=== PATIENT | female | born 1990 | race Caucasian/White ===

== ENCOUNTER 2017-01-19 19:39 | Emergency (ER) | payer OTHER, SELFPAY | END 2017-01-19 20:21 | disposition home or self-care (01) | PROVIDERS: Emergency Provider Nurse Practitioner; Visit Provider Nurse Practitioner | DX: J32.9 Chronic sinusitis, unspecified (principal) | CPT/HCPCS: 99201 ==

== ENCOUNTER → 2017-06-21 15:36 | Outpatient (CLI) | payer OTHER, SELFPAY ==
--- NOTE | 2017-06-21 15:38 | US_ITS ---
US transvaginal HISTORY: ITS.REASON: pelvic pain ORDERING PHYSICIAN: Casper Duran MD PATIENT AGE: 27 years Comparison: None FINDINGS: The uterus is 9.7 x 4.2 x 5.8 cm. Combined endometrial thickness is 1 cm. There is a small amount of fluid in the cul-de-sac. Right ovary is 2 x 1.2 cm containing small follicles. Blood flow is present. Left ovary is difficult to visualize measuring approximately 1.8 x 1.2 cm also contains small follicles with scant flow. IMPRESSION: 1. Endometrial thickness upper limits of normal. 2. Small amount fluid in the cul-de-sac
== END ==
PROVIDERS: Family Provider Nurse Practitioner; PCP Nurse Practitioner; Visit Provider Obstetrics & Gynecology
DX: R10.2 Pelvic and perineal pain (principal)
CPT/HCPCS: 76830

== ENCOUNTER → 2018-05-30 13:31 | Outpatient (CLI) | payer OTHER, SELFPAY ==
--- NOTE | 2018-05-30 13:34 | CT_ITS ---
CT sinus wo con CLINICAL INDICATION: Deviated septum, sinusitis ITS.REASON: sinusitis ORDERING PHYSICIAN: Robbin Champagne MD PATIENT AGE: 28 years COMPARISON: None TECHNIQUE:Axial images obtained with sagittal and coronal reformats. All CT scans at the facility use one or more dose reduction, viz: automated exposure control, ma/kV adjustment per patient size (including targeted exams where dose is matched to indication, i.e. head), or iterative reconstruction technique. FINDINGS: No sinus mucosal thickening or air-fluid levels are evident. The ostiomeatal complexes are patent. There is moderate rightward nasal septal deviation with a prominent septal spur which is projecting toward the right causing severe narrowing of the right nasal passage There are scattered small nodes in the neck. There is some increased soft tissue density in the right nasopharyngeal region which may be somewhat accentuated from the patient had tilt. Correlation with direct visualization suggested. The orbits have an unremarkable appearance. Unremarkable TMJs. No mastoid effusion. IMPRESSION:. Moderate rightward nasal septal deviation with prominent septal spur projecting toward the right causing severe narrowing of the right nasal canal Scattered small nodes are present in the neck. There is mild increased soft tissue density in the right nasopharyngeal region which may be better evaluated with direct visualization
== END ==
PROVIDERS: PCP Nurse Practitioner; Visit Provider Otolaryngology
DX: J03.01 Acute recurrent streptococcal tonsillitis (principal); J34.2 Deviated nasal septum
CPT/HCPCS: 70486

== ENCOUNTER → 2018-05-31 11:06 | Outpatient (CLI) | payer OTHER, SELFPAY ==
[2018-05-31 11:42] LABS: Activated Partial Thrombo Time 28.7 seconds (23.6-34.0); INR 1.05 (0.9-1.1); Prothrombin Time 10.8 seconds (9.4-11.8)
[2018-05-31 12:05] LABS: Basophils % 0.3 % (0.1-2.0); Eosinophils # 0.1 K/mm3 (0.0-0.4); Hematocrit 39.2 % (37.0-47.0); Hemoglobin 12.7 g/dL (12.2-16.2); Lymphocytes # 1.8 K/mm3 (0.7-4.5); Lymphocytes % 26.9 % (10-50); Mean Corpuscular HGB Conc 32.5 g/dL (31.8-35.4); Mean Corpuscular Hemoglobin 28.8 pg (27.0-31.2); Mean Corpuscular Volume 88.4 fl (81-99); Mean Platelet Volume 10.5 fl (7.4-10.4); Monocytes # 0.4 K/mm3 (0.1-1.0); Monocytes % 5.2 % (1.7-9.3); Neutrophils # 4.4 K/mm3 (1.8-7.8); Neutrophils % 65.6 % (37.0-80.0); Platelet Count 179 K/mm3 (142-424); Red Blood Count 4.43 M/mm3 (4.20-5.40); White Blood Count 6.6 K/mm3 (4.8-10.8)
[2018-05-31 14:40] LABS: Anion Gap 16.4 mEq/L (5-15); Blood Urea Nitrogen 14 mg/dL (7-18); Calcium 9.4 mg/dL (8.5-10.1); Carbon Dioxide 26 mmol/L (21.0-32.0); Chloride 105 mmol/L (98-107); Creatinine,Serum 0.61 mg/dL (0.55-1.02); Estimated Glomerular Filt Rate 118 ml/min (>60); GFR (African American) 142 ML/MIN (>60); Glucose 81 mg/dL (74-106); Potassium 4.4 mmoL/L (3.5-5.1); Sodium 143 mmol/L (136-145)
== END ==
PROVIDERS: Visit Provider Otolaryngology
DX: J02.8 Acute pharyngitis due to other specified organisms (principal); J03.90 Acute tonsillitis, unspecified; R59.0 Localized enlarged lymph nodes
CPT/HCPCS: 36415; 80048; 85025; 85610; 85730

== ENCOUNTER 2018-07-02 09:14 | Emergency (ER) | payer OTHER, SELFPAY ==
[2018-07-02 09:41] VITALS: BP 129/71; PULSE 107; RESP 20; TEMP 36.9; O2SAT 100; BMI 24.7
--- NOTE | 2018-07-02 09:43 | US_ITS ---
US OB transvaginal: INDICATION: ITS.REASON: 7 weeks -bleeding ORDERING PHYSICIAN: Joe Cary MD PATIENT AGE: 28 years TECHNIQUE: ultrasound transvaginal scanning. COMPARISON: No previous relevant studies. FINDINGS: There are slightly thickened endometrium. There Is a curious hypoechoic cystic-appearing lesion in the lower uterine segment within the myometrium containing what appears be a pole with crown-rump length measuring 0.49 cm which would correspond to gestational age of 6 weeks and 2 days. A couple of images show what appears be a tiny yolk sac. The location of this possible sac is near the scar. The heart rate of 112 bpm was obtained. The cervix is closed. The left ovary appears normal, there is a small cyst in the right ovary. IMPRESSION: Possible very early gestational sac possibly within or adjacent to the scar in the myometrium with a very faint and questionable cardiac flicker identified. The cervix is closed. Other considerations for cystic appearing structure this location would be somewhat high nabothian cyst or a focal area of endometriosis. Suggest close follow-up with serial beta hCG and follow-up ultrasound study in 4-6 days to better evaluate for viability.
--- NOTE | 2018-07-02 09:46 | PC.NURSE ---
called rad for u/s
--- NOTE | 2018-07-02 09:55 | HMH.EDUROGF ---
ED Disposition Clinical Impression: Bleeding in early , Hypokalemia Disposition: Home, Self-Care Condition on Discharge: Good Instructions: DI for Vaginal Bleeding During , DI for Hypokalemia Additional Instructions: Call [facility] monday for follow up Prescriptions: Potassium Chloride [K-Tab ER 20 mEq] 20 meq PO BID 10 Days #20 tab Referrals: Jo Lamb MD [Primary Care Provider] - Time of Disposition: 11:21 - Critical Care Critical Care Time: No Attestation: On 07/02/18, the high probability of a clinically significant, sudden or life threatening deterioration of the following system(s) required my full and direct attention, intervention and personal management. The time I documented below is in addition to time spent performing reported procedures but includes the following listed in this critical care notation. Medical Decision Making - Medical Records Medical records reviewed: Yes: I reviewed the patient's medical records. - Maxime Inquiry Pt receiving controlled substance: No Maxime was queried for this patient: No Vital Signs: 07/02/18 09:41 07/02/18 09:58 07/02/18 11:03 Temperature 98.5 F Temperature Source Oral Pulse Rate [Left Radial] 107 H 79 62 Respiratory Rate 20 Blood Pressure [Right Arm] 129/71 130/83 118/76 Blood Pressure Mean [Right Arm] 90 98 90 Blood Pressure Source [Right Arm] Automatic Cuff Automatic Cuff Automatic Cuff Blood Pressure Position [Right Arm] Sitting Sitting Sitting 02 Sat by Pulse Oximetry 100 99 95 Oxygen Delivery Method Room Air - Lab Data Lab results reviewed: Yes: I reviewed the patient's lab results. Lab Results 07/02/18 09:19: Urine Color Yellow, Urine Appearance Cloudy, Urine pH >= 9.0 H, Ur Specific [place] 1.010, Urine Protein 2+, Urine Glucose (UA) Negative, Urine Ketones Negative, Urine Blood 3+, Urine Nitrate Negative, Urine Bilirubin Negative, Urine Urobilinogen 1.0, Ur Leukocyte Esterase Trace, Urine RBC 20-50, Urine WBC 3-5, Ur Squamous Epith Cells 10-20, Urine Bacteria 2+ 07/02/18 09:48: HCG, Quant [id number] H 07/02/18 09:48: Serum HCG, Qual Positive 07/02/18 09:48: Sodium 141, Potassium 2.7 L*, Chloride 103, Carbon Dioxide 30, Anion Gap 10.7, BUN 12, Creatinine 0.74, Estimated Creat Clear 114, Estimated GFR 94, Est GFR ( Amer) 114, Glucose 92, Calcium 8.9, Total Bilirubin 0.4, AST 12 L, ALT 15, Alkaline Phosphatase 68, Total Protein 7.5, Albumin 3.7, Globulin 3.8 H, Albumin/Globulin Ratio 1.0 L Result diagrams: 07/02/18 09:48 Orders (Tests/Meds): ORDERS Category Date Time Status US transvaginal Stat Exams 07/02/18 09:43 Taken Urine Culture Stat Micro 07/02/18 09:19 Received Female Urogenital HPI - General Chief complaint: Vaginal Bleeding Stated complaint: 7 weeks and bleeding Time Seen by Provider: 07/02/18 09:57 Mode of Arrival: Ambulatory Source of Information: Patient Limitations: No Limitations Description of Symptoms (Recalled from ER Triage Doc. by RN): Pt states this morning she had some dark vaginal bleeding, 7 weeks . Denies any cramping - History of Present Illness HPI Narrative: mild vag bleed, 7 weeks . no lateralizing pain. no previous vaginal discharge. Has been seen by obgyn for this already, no u/s. History of dysplasia, 4 previous live births last requring d/c for retained placenta : yes - Related Data Previous Rx's Medication Instructions Recorded Ondansetron [Zofran 4mg ODT] 4 mg PO Q8HP PRN #20 tab.rapdis 05/28/18 Potassium Chloride [K-Tab ER 20 20 meq PO BID 10 Days #20 tab 07/02/18 mEq] Allergies Allergy/AdvReac Type Severity Reaction Status Date / Time PEANUTS (FOOD) Allergy Unknown . Uncoded 06/29/17 09:45 [facility] History - Hepatitis A Screen Drug use history?: No High risk sexual behaviors?: No History of sexually transmitted infection?: No Currently employed?: No Childcare worker?: No Do y
[2018-07-02 09:58] VITALS: BP 130/83; PULSE 79; O2SAT 99
--- NOTE | 2018-07-02 10:07 | ED_ITS ---
ED Disposition Clinical Impression: Bleeding in early , Hypokalemia Disposition: Home, Self-Care Condition on Discharge: Good Instructions: DI for Vaginal Bleeding During , DI for Hypokalemia Additional Instructions: Call [facility] monday for follow up Prescriptions: Potassium Chloride [K-Tab ER 20 mEq] 20 meq PO BID 10 Days #20 tab Referrals: Jo Lamb MD [Primary Care Provider] - Time of Disposition: 11:21 - Critical Care Critical Care Time: No Attestation: On 07/02/18, the high probability of a clinically significant, sudden or life threatening deterioration of the following system(s) required my full and direct attention, intervention and personal management. The time I documented below is in addition to time spent performing reported procedures but includes the following listed in this critical care notation. Medical Decision Making - Medical Records Medical records reviewed: Yes: I reviewed the patient's medical records. - Maxime Inquiry Pt receiving controlled substance: No Maxime was queried for this patient: No Vital Signs: 07/02/18 09:41 07/02/18 09:58 07/02/18 11:03 Temperature 98.5 F Temperature Source Oral Pulse Rate [Left Radial] 107 H 79 62 Respiratory Rate 20 Blood Pressure [Right Arm] 129/71 130/83 118/76 Blood Pressure Mean [Right Arm] 90 98 90 Blood Pressure Source [Right Arm] Automatic Cuff Automatic Cuff Automatic Cuff Blood Pressure Position [Right Arm] Sitting Sitting Sitting 02 Sat by Pulse Oximetry 100 99 95 Oxygen Delivery Method Room Air - Lab Data Lab results reviewed: Yes: I reviewed the patient's lab results. Lab Results 07/02/18 09:19: Urine Color Yellow, Urine Appearance Cloudy, Urine pH >= 9.0 H, Ur Specific [employer] 1.010, Urine Protein 2+, Urine Glucose (UA) Negative, Urine Ketones Negative, Urine Blood 3+, Urine Nitrate Negative, Urine Bilirubin Negative, Urine Urobilinogen 1.0, Ur Leukocyte Esterase Trace, Urine RBC 20-50, Urine WBC 3-5, Ur Squamous Epith Cells 10-20, Urine Bacteria 2+ 07/02/18 09:48: HCG, Quant [id number] H 07/02/18 09:48: Serum HCG, Qual Positive 07/02/18 09:48: Sodium 141, Potassium 2.7 L*, Chloride 103, Carbon Dioxide 30, Anion Gap 10.7, BUN 12, Creatinine 0.74, Estimated Creat Clear 114, Estimated GFR 94, Est GFR ( Amer) 114, Glucose 92, Calcium 8.9, Total Bilirubin 0.4, AST 12 L, ALT 15, Alkaline Phosphatase 68, Total Protein 7.5, Albumin 3.7, Globulin 3.8 H, Albumin/Globulin Ratio 1.0 L Result diagrams: 07/02/18 09:48 Orders (Tests/Meds): ORDERS Category Date Time Status US transvaginal Stat Exams 07/02/18 09:43 Taken Urine Culture Stat Micro 07/02/18 09:19 Received Female Urogenital HPI - General Chief complaint: Vaginal Bleeding Stated complaint: 7 weeks and bleeding Time Seen by Provider: 07/02/18 09:57 Mode of Arrival: Ambulatory Source of Information: Patient Limitations: No Limitations Description of Symptoms (Recalled from ER Triage Doc. by RN): Pt states this morning she had some dark vaginal bleeding, 7 weeks . Denies any cramping - History of Present Illness HPI Narrative: mild vag bleed, 7 weeks . no lateralizing pain. no previous vaginal discharge. Has been seen by [facility] for this already,
[2018-07-02 10:09] LABS: Microscopic, Urine URINE MICROSCOPIC (MICROSCOPIC)
[2018-07-02 10:10] LABS: Appearance,Urine CLOUDY (Clear); Bilirubin,Urine Negative (Negative); Blood, Urine 3+ (Negative); Color,Urine YELLOW (Yellow); Glucose,Urine (UA) Negative (Negative); Ketones,Urine Negative (Negative); Leukocyte Esterase,Urine TRACE (Negative); Nitrate,Urine Negative (Negative); Protein,Urine 2+ (Negative)
[2018-07-02 10:19] LABS: PH,Urine >= 9.0 (5.0-8.5)
[2018-07-02 10:20] LABS: Bacteria,Urine 2+ /lpf; RBC,Urine 20-50 #/hpf (0-3)
[2018-07-02 10:23] LABS: HCG Qualitative, Serum Positive (Negative)
[2018-07-02 10:27] LABS: Alanine Aminotransferase 15 U/L (12-78); Albumin Level 3.7 gm/dL (3.4-5.0); Alkaline Phosphatase 68 U/L (46-116); Anion Gap 10.7 mEq/L (5-15); Aspartate Amino Transferase 12 U/L (15-37); Bilirubin,Total 0.4 mg/dL (0.2-1.0); Blood Urea Nitrogen 12 mg/dL (7-18); Calcium 8.9 mg/dL (8.5-10.1); Carbon Dioxide 30 mmol/L (21.0-32.0); Chloride 103 mmol/L (98-107); Creatinine Clearance Estimated 114 mL/min (50-200); Creatinine,Serum 0.74 mg/dL (0.55-1.02); Estimated Glomerular Filt Rate 94 ml/min (>60); GFR (African American) 114 ML/MIN (>60); Globulin 3.8 gm/dl (1.3-3.2); Glucose 92 mg/dL (74-106); Sodium 141 mmol/L (136-145); Total Protein,Serum 7.5 gm/dL (6.4-8.2)
[2018-07-02 10:28] LABS: Potassium 2.7 mmoL/L (3.5-5.1)
--- NOTE | 2018-07-02 10:28 | PC.NURSE ---
Critical potassium report to
[2018-07-02 10:58] LABS: HCG,Quantitative 2963 mIU/mL
--- NOTE | 2018-07-02 10:59 | PC.NURSE ---
pt returned to room
[2018-07-02 11:03] VITALS: BP 118/76; PULSE 62; O2SAT 95
[2018-07-02 11:24] VITALS: BP 107/65; PULSE 83; O2SAT 98
[2018-07-02 11:58] VITALS: BP 121/74; PULSE 81; RESP 18; TEMP 36.7; O2SAT 98
== END 2018-07-02 11:59 | disposition home or self-care (01) ==
PROVIDERS: Emergency Provider Emergency Medicine; PCP Nurse Practitioner
DX: O46.91 Antepartum hemorrhage, unspecified, first trimester (principal); Z3A.01 Less than 8 weeks gestation of pregnancy; E87.6 Hypokalemia; K21.9 Gastro-esophageal reflux disease without esophagitis; R09.81 Nasal congestion
CPT/HCPCS: 76817; 80053; 81001; 84702; 84703; 87086; 99283

== ENCOUNTER 2018-07-08 11:14 | Emergency (ER) | payer OTHER, SELFPAY ==
[2018-07-08 11:28] VITALS: BP 116/82; PULSE 90; RESP 16; TEMP 36.9; O2SAT 99; BMI 24.7
--- NOTE | 2018-07-08 11:38 | US_ITS ---
US OB transvaginal CLINICAL INDICATION: ITS.REASON: vaginal bleeding ORDERING PHYSICIAN: Eric Temple MD PATIENT AGE: 28 years Comparison: None FINDINGS: There is an intrauterine gestation with a crown-rump length of 0.72 cm correlating to a gestational age of 6 weeks and 5 days. Gestational sac does not appear to be within the endometrium itself. The sac is near the cervical region.. Small amount fluid is present around the sac. heart tones are present with FHR of 129 bpm. There is a small amount fluid also within the endometrium. The adnexa are unremarkable. No cul-de-sac fluid. IMPRESSION: There is a single live gestation that is near the cervix. The estimated ultrasound age is 6 weeks 5 days. heart tones are present. The sac itself does not appear to be within the cervix but is along the lower uterine segment anteriorly and could be within a scar as previously described. Close follow-up is suggested.
--- NOTE | 2018-07-08 11:40 | HMH.EDGENADL ---
ED Disposition Clinical Impression: Threatened UTI (urinary tract infection) Qualifiers: Urinary tract infection type: acute cystitis Hematuria presence: with hematuria Qualified Code(s): N30.01 - Acute cystitis with hematuria Disposition: Home, Self-Care Condition on Discharge: Good Instructions: DI for Vaginal Bleeding Prescriptions: Nitrofurantoin Monohyd/M-Cryst [Macrobid 100 mg Capsule] 100 mg PO BID 7 Days #14 cap Referrals: Jo Lamb MD [Primary Care Provider] - - Critical Care Critical Care Time: No Attestation: On , the high probability of a clinically significant, sudden or life threatening deterioration of the following system(s) required my full and direct attention, intervention and personal management. The time I documented below is in addition to time spent performing reported procedures but includes the following listed in this critical care notation. Medical Decision Making - Medical Records Medical records reviewed: Yes: I reviewed the patient's medical records. - Maxime Inquiry Pt receiving controlled substance: No Vital Signs: 07/08/18 11:28 07/08/18 12:25 Temperature 98.5 F Temperature Source Oral Pulse Rate [Left Radial] 90 74 Respiratory Rate 16 Blood Pressure [Right Arm] 116/82 121/67 Blood Pressure Mean [Right Arm] 93 85 Blood Pressure Source [Right Arm] Automatic Cuff Blood Pressure Position [Right Arm] Sitting 02 Sat by Pulse Oximetry 99 99 Oxygen Delivery Method Room Air - Lab Data Lab results reviewed: Yes: I reviewed the patient's lab results. Lab Results 07/08/18 11:34: Urine Color Yellow, Urine Appearance Cloudy, Urine pH >= 9.0 H, Ur Specific [place] 1.010, Urine Protein 2+, Urine Glucose (UA) Negative, Urine Ketones Negative, Urine Blood 1+, Urine Nitrate Negative, Urine Bilirubin Negative, Urine Urobilinogen 0.2, Ur Leukocyte Esterase Negative, Urine RBC 3-5, Urine WBC 3-5, Ur Squamous Epith Cells 5-10, Urine Bacteria 4+ 07/08/18 11:50: HCG, Quant [id number] H 07/08/18 11:50: WBC 6.3, RBC 4.22, Hgb 12.1 L, Hct 35.6 L, MCV 84.3, MCH 28.6, MCHC 34.0, RDW 13.1, Plt Count 201, MPV 9.7, Neut % (Auto) 58.2, Lymph % (Auto) 34.5, [place] % (Auto) 4.9, Eos % (Auto) 2.2, Baso % (Auto) 0.2, Neut # (Auto) 3.7, Lymph # (Auto) 2.2, [place] # (Auto) 0.3, Eos # (Auto) 0.1, Baso # (Auto) 0.0 07/08/18 11:50: Sodium 141, Potassium 3.6, Chloride 105, Carbon Dioxide 24, Anion Gap 15.6 H, BUN 8, Creatinine 0.67, Estimated Creat Clear 126, Estimated GFR 106, Est GFR ( Amer) 128, Glucose 88, Calcium 8.8, Total Bilirubin 0.5, AST 14 L, ALT 19, Alkaline Phosphatase 72, Total Protein 7.4, Albumin 3.7, Globulin 3.7 H, Albumin/Globulin Ratio 1.0 L 07/08/18 11:58: Blood Type O Positive Result diagrams: 07/08/18 11:50 07/08/18 11:50 Orders (Tests/Meds): ED MEDICATIONS Discontinued Medications Generic Name Dose Route Start Last Admin Trade Name Freq PRN Reason Stop Dose Admin Sodium Chloride 1,000 mls @ 999 mls/hr 07/08/18 11:45 07/08/18 11:53 Sod Chlor 0.9% 1000ml Bag IV 07/08/18 12:45 999 mls/hr .Q1H1M RENE Administration ORDERS Category Date Time Status Urine Culture Stat Micro 07/08/18 11:34 Received US OB transvaginal Stat Ultrasound 07/08/18 11:38 Taken - US Data US Images: Pelvis ED US Reviewed: Yes: I have viewed radiologist's interpretation Preliminary Findings: Abnormal Echo (live iup, no large free fluid, per Rad) Medical Decision Narrative: see your OB tomorrow, continue vit, macrobid, oral fluids, return if worse General Adult HPI - General Chief complaint: Vaginal Bleeding Stated complaint: 7 weeks passing blood clots Time Seen by Provider: 07/08/18 11:40 Mode of Arrival: Ambulatory Source of Information: Patient Limitations: No Limitations Description of Symptoms (Recalled from ER Triage Doc. by RN): c/o bleeding with clots that started this morning, she states that the bleeding has almost stopped. 7 we
--- NOTE | 2018-07-08 11:43 | ED_ITS ---
ED Disposition Clinical Impression: Threatened UTI (urinary tract infection) Qualifiers: Urinary tract infection type: acute cystitis Hematuria presence: with hematuria Qualified Code(s): N30.01 - Acute cystitis with hematuria Disposition: Home, Self-Care Condition on Discharge: Good Instructions: DI for Vaginal Bleeding Prescriptions: Nitrofurantoin Monohyd/M-Cryst [Macrobid 100 mg Capsule] 100 mg PO BID 7 Days #14 cap Referrals: Jo Lamb MD [Primary Care Provider] - - Critical Care Critical Care Time: No Attestation: On , the high probability of a clinically significant, sudden or life threatening deterioration of the following system(s) required my full and direct attention, intervention and personal management. The time I documented below is in addition to time spent performing reported procedures but includes the fo llowing listed in this critical care notation. Medical Decision Making - Medical Records Medical records reviewed: Yes: I reviewed the patient's medical records. - Maxime Inquiry Pt receiving controlled substance: No Vital Signs: 07/08/18 11:28 07/08/18 12:25 Temperature 98.5 F Temperature Source Oral Pulse Rate [Left Radial] 90 74 Respiratory Rate 16 Blood Pressure [Right Arm] 116/82 121/67 Blood Pressure Mean [Right Arm] 93 85 Blood Pressure Source [Right Arm] Automatic Cuff Blood Pressure Position [Right Arm] Sitting 02 Sat by Pulse Oximetry 99 99 Oxygen Delivery Method Room Air - Lab Data Lab results reviewed: Yes: I reviewed the patient's lab results. Lab Results 07/08/18 11:34: Urine Color Yellow, Urine Appearance Cloudy, Urine pH >= 9.0 H, Ur Specific [place] 1.010, Urine Protein 2+, Urine Glucose (UA) Negative, Urine Ketones Negative, Urine Blood 1+, Urine Nitrate Negative, Urine Bilirubin Negative, Urine Urobilinogen 0.2, Ur Leukocyte Esterase Negative, Urine RBC 3-5, Urine WBC 3-5, Ur Squamous Epith Cells 5-10, Urine Bacteria 4+ 07/08/18 11:50: HCG, Quant [id number] H 07/08/18 11:50: WBC 6.3, RBC 4.22, Hgb 12.1 L, Hct 35.6 L, MCV 84.3, MCH 28.6, MCHC 34.0, RDW 13.1, Plt Count 201, MPV 9.7, Neut % (Auto) 58.2, Lymph % (Auto) 34.5, [place] % (Auto) 4.9, Eos % (Auto) 2.2, Baso % (Auto) 0.2, Neut # (Auto) 3.7, Lymph # (Auto) 2.2, [place] # (Auto) 0.3, Eos # (Auto) 0.1, Baso # (Auto) 0.0 07/08/18 11:50: Sodium 141, Potassium 3.6, Chloride 105, Carbon Dioxide 24, Anion Gap 15.6 H, BUN 8, Creatinine 0.67, Estimated Creat Clear 126, Estimated GFR 106, Est GFR ( Amer) 128, Glucose 88, Calcium 8.8, Total Bilirubin 0.5, AST 14 L, ALT 19, Alkaline Phosphatase 72, Total Protein 7.4, Albumin 3.7, Globulin 3.7 H, Albumin/Globulin Ratio 1.0 L 07/08/18 11:58: Blood Type O Positive Result diagrams: 07/08/18 11:50 07/08/18 11:50 Orders (Tests/Meds): ED MEDICATIONS Discontinued Medications Generic Name Dose Route Start Last Admin Trade Name Freq PRN Reason Stop Dose Admin Sodium Chloride 1,000 mls @ 999 mls/hr 07/08/18 11:45 07/08/18 11:53 Sod Chlor 0.9% 1000ml Bag IV 07/08/18 12:45 999 mls/hr .Q1H1M RENE Administration ORDERS Category Date Time Status Urine Culture Stat Micro 07/08/18 11:34 Received U
[2018-07-08 11:56] LABS: Microscopic, Urine URINE MICROSCOPIC (MICROSCOPIC)
[2018-07-08 11:59] LABS: Appearance,Urine CLOUDY (Clear); Bilirubin,Urine Negative (Negative); Blood, Urine 1+ (Negative); Color,Urine YELLOW (Yellow); Glucose,Urine (UA) Negative (Negative); Ketones,Urine Negative (Negative); Leukocyte Esterase,Urine Negative (Negative); Nitrate,Urine Negative (Negative); Protein,Urine 2+ (Negative); Urobilinogen,Urine 0.2 EU/dl (0.2)
[2018-07-08 11:59] LABS: Basophils % 0.2 % (0.1-2.0); Eosinophils # 0.1 K/mm3 (0.0-0.4); Eosinophils % 2.2 % (0.1-12.0); Hematocrit 35.6 % (37.0-47.0); Hemoglobin 12.1 g/dL (12.2-16.2); Lymphocytes # 2.2 K/mm3 (0.7-4.5); Lymphocytes % 34.5 % (10-50); Mean Corpuscular Hemoglobin 28.6 pg (27.0-31.2); Mean Corpuscular Volume 84.3 fl (81-99); Mean Platelet Volume 9.7 fl (7.4-10.4); Monocytes # 0.3 K/mm3 (0.1-1.0); Monocytes % 4.9 % (1.7-9.3); Neutrophils # 3.7 K/mm3 (1.8-7.8); Neutrophils % 58.2 % (37.0-80.0); Platelet Count 201 K/mm3 (142-424); Red Blood Count 4.22 M/mm3 (4.20-5.40); Red Cell Distribution Width 13.1 % (11.5-17.5); White Blood Count 6.3 K/mm3 (4.8-10.8)
[2018-07-08 12:01] LABS: PH,Urine >= 9.0 (5.0-8.5)
[2018-07-08 12:09] LABS: Bacteria,Urine 4+ /lpf
[2018-07-08 12:09] LABS: Alanine Aminotransferase 19 U/L (12-78); Albumin Level 3.7 gm/dL (3.4-5.0); Alkaline Phosphatase 72 U/L (46-116); Anion Gap 15.6 mEq/L (5-15); Aspartate Amino Transferase 14 U/L (15-37); Bilirubin,Total 0.5 mg/dL (0.2-1.0); Blood Urea Nitrogen 8 mg/dL (7-18); Calcium 8.8 mg/dL (8.5-10.1); Carbon Dioxide 24 mmol/L (21.0-32.0); Chloride 105 mmol/L (98-107); Creatinine Clearance Estimated 126 mL/min (50-200); Creatinine,Serum 0.67 mg/dL (0.55-1.02); Estimated Glomerular Filt Rate 106 ml/min (>60); GFR (African American) 128 ML/MIN (>60); Globulin 3.7 gm/dl (1.3-3.2); Glucose 88 mg/dL (74-106); Potassium 3.6 mmoL/L (3.5-5.1); Sodium 141 mmol/L (136-145); Total Protein,Serum 7.4 gm/dL (6.4-8.2)
[2018-07-08 12:25] VITALS: BP 121/67; PULSE 74; O2SAT 99
[2018-07-08 12:33] LABS: HCG,Quantitative 5166 mIU/mL
[2018-07-08 14:00] VITALS: BP 105/62; PULSE 87; O2SAT 97
[2018-07-08 14:09] VITALS: BP 126/66; PULSE 65; RESP 18; TEMP 36.6; O2SAT 100
== END 2018-07-08 14:13 | disposition home or self-care (01) ==
PROVIDERS: Emergency Provider Emergency Medicine Emergency Medical Services; PCP Nurse Practitioner
DX: O20.0 Threatened abortion (principal); Z3A.01 Less than 8 weeks gestation of pregnancy; O23.11 Infections of bladder in pregnancy, first trimester; K21.9 Gastro-esophageal reflux disease without esophagitis
CPT/HCPCS: 36415; 76817; 80053; 81001; 84702; 85025; 86900; 86901; 87086; 96365; 99284

== ENCOUNTER → 2018-08-03 14:29 | Outpatient (CLI) | payer OTHER, SELFPAY ==
--- NOTE | 2018-08-03 14:30 | US_ITS ---
US transvaginal HISTORY: ITS.REASON: POST OP FOLLOW ORDERING PHYSICIAN: Casper Duran MD PATIENT AGE: 28 years Comparison: None FINDINGS: Uterus is empty and measures 9.0 x 3.9 x 6.2 cm. Right ovary is 4.3 x 2.1 x 3.5 cm. Left ovary is 2.0 x 1.0 x 1.4 cm. There is a small amount of cul-de-sac fluid. Cervical area appears normal. Near the surgical scar level in the anterior myometrium of the uterus there is a rounded anechoic focus measuring 4.8 mm in greatest diameter. Endometrial stripe is 7.6 mm. Right ovary shows a few anechoic foci largest is 3.4 cm. There is blood flow to the right ovary. Left ovary shows blood flow without lesion. Impression: Small benign-appearing cyst within the uterine myometrium anteriorly at the level of the surgical scar. Right ovarian cysts, largest is 3.4 cm. Small amount of cul-de-sac fluid which could be physiological.
== END ==
PROVIDERS: PCP Nurse Practitioner; Visit Provider Obstetrics & Gynecology
DX: O20.0 Threatened abortion (principal)
CPT/HCPCS: 76830

== ENCOUNTER → 2018-09-03 10:16 | Outpatient (CLI) | payer OTHER, SELFPAY ==
[2018-09-03 10:38] LABS: Urine Pregnancy, HCG Qual. Negative (Negative)
[2018-09-03 11:27] LABS: Basophils % 0.4 % (0.1-2.0); Eosinophils # 0.2 K/mm3 (0.0-0.4); Hematocrit 36.7 % (37.0-47.0); Hemoglobin 11.7 g/dL (12.2-16.2); Lymphocytes % 30.8 % (10-50); Mean Corpuscular Hemoglobin 28.2 pg (27.0-31.2); Mean Corpuscular Volume 88.2 fl (81-99); Mean Platelet Volume 9.7 fl (7.4-10.4); Monocytes # 0.4 K/mm3 (0.1-1.0); Monocytes % 6.5 % (1.7-9.3); Neutrophils # 3.8 K/mm3 (1.8-7.8); Neutrophils % 59.2 % (37.0-80.0); Platelet Count 254 K/mm3 (142-424); Red Blood Count 4.16 M/mm3 (4.20-5.40); Red Cell Distribution Width 13.4 % (11.5-17.5); White Blood Count 6.3 K/mm3 (4.8-10.8)
[2018-09-03 11:47] LABS: Anion Gap 13.2 mEq/L (5-15); Blood Urea Nitrogen 11 mg/dL (7-18); Calcium 8.9 mg/dL (8.5-10.1); Carbon Dioxide 26 mmol/L (21.0-32.0); Chloride 106 mmol/L (98-107); Creatinine,Serum 0.65 mg/dL (0.55-1.02); Estimated Glomerular Filt Rate 109 ml/min (>60); GFR (African American) 132 ML/MIN (>60); Glucose 81 mg/dL (74-106); Potassium 4.2 mmoL/L (3.5-5.1); Sodium 141 mmol/L (136-145)
== END ==
PROVIDERS: Visit Provider Otolaryngology
DX: Z01.818 Encounter for other preprocedural examination (principal); J34.2 Deviated nasal septum; R59.9 Enlarged lymph nodes, unspecified; J34.89 Other specified disorders of nose and nasal sinuses
CPT/HCPCS: 36415; 80048; 81025; 85025; 93005

== ENCOUNTER → 2018-09-14 10:01 | Outpatient (CLI) | payer OTHER, SELFPAY ==
--- NOTE | 2018-09-14 10:03 | US_ITS ---
US transvaginal HISTORY: ITS.REASON: pelvic pain ORDERING PHYSICIAN: Casper Duran MD PATIENT AGE: 28 years FINDINGS: The uterus is 9 x 4 x 6 cm with a combined endometrial thickness of 6 mm. Irregularity is noted along the lower uterine segment anteriorly consistent with a scar. Small cystic area once again noted at this region unchanged No uterine mass evident. The right ovary is 3 x 2 cm and contains a 2 cm cyst. The left ovary is 2.6 x 2 cm containing small follicles. There is a small amount fluid in the cul-de-sac. IMPRESSION: Postsurgical changes of the uterus at the scar with persistent small cystic area unchanged Small right ovarian cyst that 2 cm with a small amount of cul-de-sac fluid. Overall no significant change from 08/03/2018
== END ==
PROVIDERS: PCP Nurse Practitioner; Visit Provider Obstetrics & Gynecology
DX: R10.2 Pelvic and perineal pain (principal)
CPT/HCPCS: 76830

== ENCOUNTER 2019-07-08 21:05 | Outpatient (CLI) | payer OTHER, SELFPAY ==
[2019-07-08 21:37] VITALS: BMI 25.7
[2019-07-08 21:48] LABS: Microscopic, Urine URINE MICROSCOPIC (MICROSCOPIC)
[2019-07-08 21:51] LABS: Appearance,Urine CLEAR (Clear); Bilirubin,Urine Negative (Negative); Blood, Urine TRACE-I (Negative); Color,Urine YELLOW (Yellow); Glucose,Urine (UA) Negative (Negative); Ketones,Urine 1+ (Negative); Leukocyte Esterase,Urine Negative (Negative); Nitrate,Urine Negative (Negative); PH,Urine 6.5 (5.0-8.5); Protein,Urine TRACE (Negative); Urobilinogen,Urine 0.2 EU/dl (0.2)
[2019-07-08 21:57] LABS: Bacteria,Urine Trace /lpf
[2019-07-08 22:03] LABS: Amphetamine/Metha Screen,Urine Negative ng/ml (<1000)
[2019-07-08 22:04] LABS: Barbiturates Screen,Urine Negative ng/ml (<200); Benzodiazepines Screen,Urine Negative ng/ml (<200)
[2019-07-08 22:05] LABS: Cannabinoid Screen,Urine Negative ng/ml (<50)
[2019-07-08 22:06] LABS: Cocaine Screen,Urine Negative ng/ml (<300); Methadone Screen,Urine Negative ng/ml (<300)
[2019-07-08 22:07] LABS: Opiate Screen,Urine Negative ng/ml (<300); Phencyclidine Screen,Urine Negative ng/ml (<25)
[2019-07-08 22:16] VITALS: BP 118/68; PULSE 90; RESP 18; TEMP 37.1; O2SAT 99; BMI 25.7
== END 2019-07-09 00:08 | disposition home or self-care (01) ==
LOC: OBOUT 21:06 → OB 21:08
PROVIDERS: PCP Emergency Medicine; Visit Provider Nurse Practitioner Obstetrics & Gynecology
DX: O47.03 False labor before 37 completed weeks of gestation, third trimester (principal); Z3A.32 32 weeks gestation of pregnancy; R07.89 Other chest pain; R05 Cough
CPT/HCPCS: 59025; 80305; 81001; 87275; 87276; 96365; G0463

== ENCOUNTER 2019-07-17 23:16 | Inpatient (IN) | payer OTHER, SELFPAY ==
[2019-07-17 21:19] VITALS: BMI 26.7
[2019-07-17 21:27] VITALS: BP 112/80; PULSE 84; RESP 20; TEMP 37.1; O2SAT 98; BMI 26.7
[2019-07-17 21:27] LABS: Microscopic, Urine URINE MICROSCOPIC (MICROSCOPIC)
[2019-07-17 21:36] LABS: Appearance,Urine CLEAR (Clear); Bilirubin,Urine Negative (Negative); Blood, Urine Negative (Negative); Color,Urine YELLOW (Yellow); Glucose,Urine (UA) Negative (Negative); Ketones,Urine Negative (Negative); Leukocyte Esterase,Urine Negative (Negative); Nitrate,Urine Negative (Negative); PH,Urine 8.5 (5.0-8.5); Protein,Urine TRACE (Negative)
[2019-07-17 21:48] LABS: Amphetamine/Metha Screen,Urine Negative ng/ml (<1000); Barbiturates Screen,Urine Negative ng/ml (<200)
[2019-07-17 21:49] LABS: Benzodiazepines Screen,Urine Negative ng/ml (<200)
[2019-07-17 21:50] LABS: Cannabinoid Screen,Urine Negative ng/ml (<50); Cocaine Screen,Urine Negative ng/ml (<300)
[2019-07-17 21:51] LABS: Methadone Screen,Urine Negative ng/ml (<300)
[2019-07-17 21:52] LABS: Opiate Screen,Urine Negative ng/ml (<300); Phencyclidine Screen,Urine Negative ng/ml (<25)
[2019-07-17 22:05] LABS: Bacteria,Urine Trace /lpf
[2019-07-17 22:08] LABS: Basophils % 0.1 % (0.1-2.0); Eosinophils # 0.1 K/mm3 (0.0-0.4); Eosinophils % 1.1 % (0.1-12.0); Hematocrit 30.7 % (37.0-47.0); Hemoglobin 10.8 g/dL (12.2-16.2); Lymphocytes # 2.5 K/mm3 (0.7-4.5); Lymphocytes % 28.9 % (10-50); Mean Corpuscular HGB Conc 35.1 g/dL (31.8-35.4); Mean Corpuscular Hemoglobin 30.9 pg (27.0-31.2); Mean Corpuscular Volume 88.1 fl (81-99); Mean Platelet Volume 10.9 fl (7.4-10.4); Monocytes # 0.4 K/mm3 (0.1-1.0); Monocytes % 4.7 % (1.7-9.3); Neutrophils # 5.6 K/mm3 (1.8-7.8); Neutrophils % 65.1 % (37.0-80.0); Platelet Count 177 K/mm3 (142-424); Red Blood Count 3.48 M/mm3 (4.20-5.40); Red Cell Distribution Width 16.7 % (11.5-17.5); White Blood Count 8.6 K/mm3 (4.8-10.8)
[2019-07-17 22:11] LABS: Chloride 92 mmol/L (98-107); Sodium 132 mmol/L (136-145)
[2019-07-17 22:14] LABS: Blood Urea Nitrogen 7 mg/dl (7-17); Creatinine Clearance Estimated 117 mL/min (50-200); Estimated Glomerular Filt Rate 85 ml/min (>60); GFR (African American) 103 ML/MIN (>60)
[2019-07-17 22:15] LABS: Calcium 7.4 mg/dl (8.4-10.2); Carbon Dioxide 39 mmol/L (22.0-30.0); Glucose 92 mg/dl (74-100)
[2019-07-17 22:17] LABS: RBC,Urine Occasional #/hpf (0-3)
--- NOTE | 2019-07-17 23:33 | ECG_ITS ---
APPROVED REPORT Exam: Resting ECG HR:69 bpm ECG Measurements Heart Rate 69 AXES TX 154 P 43 QRSd 78 QRS 51 QT 398 T 42 QTc 426 <Conclusion> Normal sinus rhythm with sinus arrhythmia Possible Left atrial enlargement Incomplete RBBB Abnormal ECG Electronically signed by : Harry Cadet, 07/19/2019 11:40:35
[2019-07-18 06:55] LABS: Chloride 99 mmol/L (98-107)
[2019-07-18 06:56] LABS: Sodium 134 mmol/L (136-145)
[2019-07-18 06:58] LABS: Blood Urea Nitrogen 4 mg/dl (7-17); Creatinine Clearance Estimated 134 mL/min (50-200); Estimated Glomerular Filt Rate 100 ml/min (>60); GFR (African American) 121 ML/MIN (>60)
[2019-07-18 06:59] LABS: Anion Gap 2.1 mEq/L (5-15); Calcium 7.3 mg/dl (8.4-10.2); Carbon Dioxide 35 mmol/L (22.0-30.0); Glucose 91 mg/dl (74-100)
[2019-07-18 07:05] LABS: Hematocrit 27.9 % (37.0-47.0); Mean Corpuscular HGB Conc 33.4 g/dL (31.8-35.4); Mean Corpuscular Hemoglobin 29.9 pg (27.0-31.2); Mean Corpuscular Volume 89.3 fl (81-99); Red Blood Count 3.12 M/mm3 (4.20-5.40)
[2019-07-18 07:06] LABS: Basophils % 0.3 % (0.1-2.0); Eosinophils % 1.6 % (0.1-12.0); Lymphocytes % 32.7 % (10-50); Mean Platelet Volume 11.3 fl (7.4-10.4); Monocytes % 6.2 % (1.7-9.3); Neutrophils # 3.6 K/mm3 (1.8-7.8); Neutrophils % 59.2 % (37.0-80.0); Platelet Count 133 K/mm3 (142-424); Red Cell Distribution Width 16.6 % (11.5-17.5)
[2019-07-18 07:07] LABS: Eosinophils # 0.1 K/mm3 (0.0-0.4); Monocytes # 0.4 K/mm3 (0.1-1.0)
[2019-07-18 07:15] LABS: Hemoglobin 9.3 g/dL (12.2-16.2)
[2019-07-18 07:18] LABS: Potassium 2.1 mmoL/L (3.5-5.1)
[2019-07-18 08:00] VITALS: BP 108/65; PULSE 88; RESP 18; TEMP 36.9; O2SAT 99
--- NOTE | 2019-07-18 09:19 | HMH.OBAPHP ---
OB - H&P: HPI Antepartum - History of Present Illness Chief complaint: Hypokalemia History of present illness: She is a 29-year-old 7 para 4 aborta 2 who is 33 weeks gestational age. She has hypokalemia in all her pregnancies and was found to have a potassium of 2.0. She has been seen at [facility] and went yesterday to be seen but was just told to take oral potassium. She was concerned about this so she came here. She has apparently been worked up for her hypokalemia in the past and she says that it only happens in and when she is not her potassium levels are normal. She denies any shortness of breath or palpitations. She has not been taking oral potassium until now. [facility] History I have reviewed the patient's past medical history: Yes Medical History: Reports:: Gastroesophageal Reflux Disease(GERD) Denies:: Cancer, Diabetes Mellitus Type 1, Diabetes Mellitus Type 2, MRSA, Seizures *Have you ever received a pneumonia vaccine?: No *Have you received a flu vaccine this season?: No Other Medical History: Denies: Blood Transfusion Reaction Laterality Cases: Bilateral: Myringotomy (Ear Tubes) Other Surgeries: Yes: , Dilation and Curettage, Other Amputation: No Fractures: No - *Social History Smoking Status: Never smoker Alcohol Intake: never Alcohol Intake Frequency:: other Substance Use Type: denies use *Occupational Status:: unemployed Housing: house Household Members: spouse *Travel in the last 8 weeks: None Family Hx:: Cancer, Diabetes, Heart Attack, Stroke, Hypertension 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 Para: 4 Review of Systems - Review of Systems Review of systems:: pertinent systems reviewed and negative unless documented below Meds Home Medications Medication Instructions Recorded Confirmed Type Ferrous Sulfate 325 mg PO DAILY 07/18/19 07/18/19 History Prenat Vit 17/Iron/Folic/Om3,6 1 cap PO DAILY 07/18/19 07/18/19 History [Elite-Ob 400 Capsule] Allergies Allergy/AdvReac Type Severity Reaction Status Date / Time No Known Allergies Allergy Verified 07/18/19 00:15 OB - H&P: Exam - Physical Exam Vital signs: Temp Pulse Resp BP Pulse Ox 98.7 F 84 20 112/80 98 07/17/19 21:27 07/17/19 21:27 07/17/19 21:27 07/17/19 21:27 07/17/19 21:27 - Constitutional no acute distress - Routine HEENT Exam Head: Present: normocephalic Eye: Present: EOMI, PERRL ENT: Present: mucous membranes moist - Routine Neck Exam Present: supple, full ROM - Routine Respiratory Exam Absent: accessory muscle use (good air entry bilaterally), respiratory distress, wheezes, crackles - Routine Cardiovascular Exam Present: RRR. Absent: murmur - Routine Abdominal Exam Present: soft, normoactive bowel sounds. Absent: tenderness, distended, guarding - Routine Rectal Exam Patient deferred: visual exam, digital exam - Routine Exam Patient deferred: external exam, groin exam, perineal exam - Routine Extremities Exam Present: full ROM. Absent: cyanosis, edema - Routine Skin Exam Present: intact. Absent: cyanosis - Routine Neurological Exam Present: alert, oriented X3 - Routine Psychiatric Exam Present: normal affect OB - Results - Labs Labs: Short CBC 07/17/19 07/18/19 Range/Units 21:50 06:15 WBC 8.6 6.0 D (4.8-10.8) K/mm3 Hgb 10.8 L 9.3 L D (12.2-16.2) g/dL Hct 30.7 L 27.9 L (37.0-47.0) % Plt Count 177 133 L (142-424) K/mm3 BMP 07/17/19 07/18/19 21:50 06:15 Sodium 132 L 134 L Potassium 2.0 L* 2.1 L* Chloride 92 L 99 Carbon Dioxide 39 H 35 H BUN 7 4 L D Creatinine 0.80 0.70 Glucose 92 91 Calcium 7.4 L 7.3 L Urine 07/17/19 Range/Units 21:20 Urine Color Yellow (Yellow) Urine Appearance Clear (Clear) Urine pH 8.5 (5.0-8.5) Ur Specific [place] 1.010 (1.005-1.030) Urine Protein Trace (Negative) Urine Glucose (UA) Negative (Negative)
--- NOTE | 2019-07-18 09:22 | HMH.ACPN2 ---
Internal Medicine - PN: Subj *Date: 07/18/19 *Time: 09:23 Interval history: She is feeling well this morning. She has been taking potassium IV as well as oral supplements. Her potassium is only risen from 2.0-2.1. We will double the dose of her potassium and increase the potassium to 40 mEq 3 times daily as well as 40 mEq in the IV fluids. We will plan to keep her till tomorrow. Exam Vital signs and Labs for Last 24 Hours: Temp Pulse Resp BP Pulse Ox 98.7 F 84 20 112/80 98 07/17/19 21:27 07/17/19 21:27 07/17/19 21:27 07/17/19 21:27 07/17/19 21:27 Laboratory Results - last 24 hr 07/17/19 21:20: Urine Color Yellow, Urine Appearance Clear, Urine pH 8.5, Ur Specific [place] 1.010, Urine Protein Trace, Urine Glucose (UA) Negative, Urine Ketones Negative, Urine Blood Negative, Urine Nitrate Negative, Urine Bilirubin Negative, Urine Urobilinogen 2.0, Ur Leukocyte Esterase Negative, Urine RBC Occasional, Urine WBC 3-5, Ur Squamous Epith Cells 10-20, Urine Bacteria Trace 07/17/19 21:20: Urine Opiates Screen Negative, Urine Methadone Screen Negative, Ur Barbituates Screen Negative, Ur Phencyclidine Scrn Negative, Ur Amphetamines Screen Negative, U Benzodiazepines Scrn Negative, Urine Cocaine Screen Negative, U Marijuana (THC) Screen Negative 07/17/19 21:50: WBC 8.6, RBC 3.48 L, Hgb 10.8 L, Hct 30.7 L, MCV 88.1, MCH 30.9, MCHC 35.1, RDW 16.7, Plt Count 177, MPV 10.9 H, Neut % (Auto) 65.1, Lymph % (Auto) 28.9, Sharkey % (Auto) 4.7, Eos % (Auto) 1.1, Baso % (Auto) 0.1, Neut # (Auto) 5.6, Lymph # (Auto) 2.5, Sharkey # (Auto) 0.4, Eos # (Auto) 0.1, Baso # (Auto) 0.0 07/17/19 21:50: Sodium 132 L, Potassium 2.0 L*, Chloride 92 L, Carbon Dioxide 39 H, Anion Gap 3.0 L, BUN 7, Creatinine 0.80, Estimated Creat Clear 117, Estimated GFR 85, Est GFR ( Amer) 103, Glucose 92, Calcium 7.4 L 07/18/19 06:15: WBC 6.0 D, RBC 3.12 L, Hgb 9.3 L D, Hct 27.9 L, MCV 89.3, MCH 29.9, MCHC 33.4, RDW 16.6, Plt Count 133 L, MPV 11.3 H, Neut % (Auto) 59.2, Lymph % (Auto) 32.7, Sharkey % (Auto) 6.2, Eos % (Auto) 1.6, Baso % (Auto) 0.3, Neut # (Auto) 3.6, Lymph # (Auto) 2.0, Sharkey # (Auto) 0.4, Eos # (Auto) 0.1, Baso # (Auto) 0.0 07/18/19 06:15: Sodium 134 L, Potassium 2.1 L*, Chloride 99, Carbon Dioxide 35 H, Anion Gap 2.1 L, BUN 4 L D, Creatinine 0.70, Estimated Creat Clear 134, Estimated GFR 100, Est GFR ( Amer) 121, Glucose 91, Calcium 7.3 L I & O for Last 24 hours: Intake & Output 07/15/19 07/16/19 07/17/19 07/18/19 11:59 11:59 11:59 11:59 Weight 156 lb - Constitutional no acute distress - *Routine HEENT Exam Head: Present: normocephalic Eye: Present: EOMI, PERRL ENT: Present: mucous membranes moist Assessment and Plan (1) Current visit: Yes Status: Acute Category: Medical Code(s): Z34.90 - Encounter for supervision of normal , unspecified, unspecified trimester (2) Hypokalemia Current visit: No Status: Acute Category: Medical Code(s): E87.6 - Hypokalemia - Assessment and plan all Dx Assessment and Plan for all problems:: We will increase her dosage of potassium both orally and in the IV. We will plan to send her home tomorrow if she is doing better. We will repeat her potassium levels in the morning.
[2019-07-18 15:10] VITALS: BP 105/65; PULSE 88; RESP 18; TEMP 36.9; O2SAT 99
[2019-07-19 05:45] LABS: Chloride 110 mmol/L (98-107); Potassium 3.2 mmoL/L (3.5-5.1); Sodium 138 mmol/L (136-145)
[2019-07-19 05:48] LABS: Anion Gap 5.2 mEq/L (5-15); Blood Urea Nitrogen 2 mg/dl (7-17); Carbon Dioxide 26 mmol/L (22.0-30.0); Creatinine Clearance Estimated 156 mL/min (50-200); Estimated Glomerular Filt Rate 119 ml/min (>60); GFR (African American) 144 ML/MIN (>60); Glucose 75 mg/dl (74-100)
[2019-07-19 06:05] LABS: Calcium 6.4 mg/dl (8.4-10.2)
[2019-07-19 08:00] VITALS: BP 109/58; PULSE 96; RESP 17; TEMP 36.6; O2SAT 100
--- NOTE | 2019-07-19 09:27 | P.DS_ITS ---
General - General Admission date:: 07/17/19 Discharge date: 07/19/19 HPI HPI: She is a 29-year-old 7 para 4 aborta 2 who was 33 weeks gestational age. She was being seen down at [facility] in [place] and was found to have low potassium. She says she has low potassium in every . Her potassium was 2.0 on arrival here. She had wanted to change care to our hospital as well. As result of her low potassium she was admitted for potassium supplementation. Hospital Course Hospital Course: Her initial potassium level was 2.0 and she received oral potassium as well as IV potassium overnight. Subsequently the levels went up to 2.1. As result of that I elected to increase her potassium to 40 mEq 3 times daily orally and 40 mEq in an IV bag. Today her potassium is 3.2. EKG had been normal on admission. Nonstress test has been normal. Today her calcium is low at 6.4 and we will give her 1 g of calcium prior to discharge. I suspect that some of this is from her dilation as result of the IVs. She will be discharged home later today with a prescription for potassium 40 mEq to take twice daily. She will continue with her vitamins and iron. She does have calcium supplements to take at home as well and she will take these. She will follow-up with me in about 10 days time as a new OB. Her condition on discharge is stable and improved. Objective Vital signs: Temp Pulse Resp BP Pulse Ox 98.4 F 88 18 105/65 L 99 07/18/19 15:10 07/18/19 15:10 07/18/19 15:10 07/18/19 15:10 07/18/19 15:10 no acute distress - *Routine HEENT Exam Head: Present: normocephalic Eye: Present: EOMI, PERRL ENT: Present: mucous membranes moist Results Labs on day of discharge: Labs from last 24 hours 07/19/19 05:22 Sodium 138 Potassium 3.2 L D Chloride 110 H Carbon Dioxide 26 D Anion Gap 5.2 BUN 2 L D Creatinine 0.60 Estimated Creat Clear 156 Estimated GFR 119 Est GFR ( Amer) 144 Glucose 75 Calcium 6.4 L D DS: Diagnosis - Discharge Diagnosis (1) Status: Acute (2) Hypokalemia Status: Acute (3) Hypocalcemia Status: Acute Discharge Plan - Patient Discharge Instructions ACTIVITY: Continue current activity DIET: continue same diet Additional Instructions: follow-up with dr. collado on monday at 9:00 Patient Instructions: Hemorrhage, DI for Hypokalemia, Antepartum Care - Follow up Plan Disposition: Home, [facility] Medications: Home Medications Medication Instructions Recorded Confirmed Type RX: Ferrous Sulfate 325 mg PO DAILY 07/18/19 07/18/19 History RX: Prenat Vit 17/Iron/Folic/Om3,6 1 cap PO DAILY 07/18/19 07/18/19 History [Elite-Ob 400 Capsule] RX: Potassium Chloride [Klor-con 40 meq PO BID #60 tab 07/19/19 Rx 20 mEq tablet] Prescriptions/Medication Reconciliation: New RX: Potassium Chloride [Klor-con 20 mEq tablet] 40 meq PO BID #60 tab Continued RX: Prenat Vit 17/Iron/Folic/Om3,6 [Elite-Ob 400 Capsule] 1 cap PO DAILY RX: Ferrous Sulfate 325 mg PO DAILY - Problem Reconciliation Problems Reviewed?: Yes
== END 2019-07-19 10:40 | disposition home or self-care (01) | DRG 833 ==
LOC: OBOUT 23:19 → OB 07-18 06:22
PROVIDERS: Admitting Provider Nurse Practitioner Obstetrics & Gynecology; PCP Nurse Practitioner; Visit Provider Nurse Practitioner Obstetrics & Gynecology
DX: O26.893 Other specified pregnancy related conditions, third trimester (principal); E87.6 Hypokalemia; E83.51 Hypocalcemia; Z3A.33 33 weeks gestation of pregnancy
CPT/HCPCS: 36415; 59025; 80048; 80305; 81001; 85025; 93005

== ENCOUNTER → 2019-07-30 10:20 | Outpatient (CLI) | payer OTHER, SELFPAY ==
[2019-07-30 11:46] LABS: Chloride 104 mmol/L (98-107); Potassium 3.9 mmoL/L (3.5-5.1); Sodium 135 mmol/L (136-145)
[2019-07-30 11:49] LABS: Anion Gap 10.9 mEq/L (5-15); Blood Urea Nitrogen 3 mg/dl (7-17); Carbon Dioxide 24 mmol/L (22.0-30.0); Estimated Glomerular Filt Rate 147 ml/min (>60); GFR (African American) 178 ML/MIN (>60)
[2019-07-30 11:50] LABS: Calcium 8.6 mg/dl (8.4-10.2); Glucose 72 mg/dl (74-100)
== END ==
PROVIDERS: Visit Provider Nurse Practitioner Obstetrics & Gynecology
DX: E87.6 Hypokalemia (principal); Z34.90 Encounter for supervision of normal pregnancy, unspecified, unspecified trimester
CPT/HCPCS: 36415; 80048

== ENCOUNTER → 2019-08-01 09:21 | Outpatient (CLI) | payer OTHER, SELFPAY ==
--- NOTE | 2019-08-01 09:22 | US_ITS ---
PROCEDURE: US OB /MATERNAL DETAIL CLINICAL INDICATION: small gestational age COMPARISON: No exams were available for comparison FINDINGS: The fetus is in a cephalic presentation. The placenta is anterior in implantation. breathing and movement was demonstrated. The other anatomy is unremarkable. Measurements: Average ultrasound age 33weeks 5days. Gestational Age 33weeks 5days Estimated due date by ultrasound age 0809/14/2019. Estimated weight 2,317g BPD = 32weeks 5days OFD = !Error HC = 33weeks 4days AC = 34weeks 5days FL = 33weeks 3days Growth Percentile= 20Percent% Heart Rate = 143bpm Cerebellum = Humerus = HC/AC is 0.98 CI is 0.75 FL/BPD is 0.79 FL/AC is 0.21 IMPRESSION: As above Dictated by: Syed Glass 08/01/2019 10:21 Electronically signed by Syed Glass in [place] 08/01/2019 10:21
== END ==
PROVIDERS: PCP Nurse Practitioner; Visit Provider Nurse Practitioner Obstetrics & Gynecology
DX: O36.5990 Maternal care for other known or suspected poor fetal growth, unspecified trimester, not applicable or unspecified (principal)
CPT/HCPCS: 76811; 76819

== ENCOUNTER 2019-08-06 15:27 | Observation (INO) | payer OTHER, SELFPAY ==
[2019-08-06 12:05] LABS: Sodium 127 mmol/L (136-145)
[2019-08-06 12:08] LABS: Blood Urea Nitrogen 14 mg/dl (7-17); Calcium 10.2 mg/dl (8.4-10.2); Estimated Glomerular Filt Rate 45 ml/min (>60); GFR (African American) 54 ML/MIN (>60); Glucose 79 mg/dl (74-100)
[2019-08-06 12:15] LABS: Anion Gap 15.5 mEq/L (5-15)
[2019-08-06 14:31] LABS: Chloride 74 mmol/L (98-107); Potassium 2.5 mmoL/L (3.5-5.1)
[2019-08-06 14:32] LABS: Carbon Dioxide 40 mmol/L (22.0-30.0)
[2019-08-06 15:39] VITALS: BMI 24.0
--- NOTE | 2019-08-06 15:39 | ECG_ITS ---
APPROVED REPORT Exam: Resting ECG HR:112 bpm ECG Measurements Heart Rate 112 AXES VA 144 P 51 QRSd 84 QRS 68 QT 372 T 24 QTc 507 <Conclusion> Sinus tachycardia Nonspecific T wave abnormality Abnormal ECG Electronically signed by : Martín Gonsales, 08/12/2019 17:16:38
[2019-08-06 15:45] VITALS: BP 101/70; PULSE 112; RESP 18; TEMP 36.9; O2SAT 98; BMI 24.0
[2019-08-06 16:40] LABS: Microscopic, Urine URINE MICROSCOPIC (MICROSCOPIC)
[2019-08-06 16:43] LABS: Appearance,Urine CLEAR (Clear); Bilirubin,Urine Negative (Negative); Blood, Urine Negative (Negative); Color,Urine YELLOW (Yellow); Glucose,Urine (UA) Negative (Negative); Ketones,Urine TRACE (Negative); Leukocyte Esterase,Urine Negative (Negative); Nitrate,Urine Negative (Negative); PH,Urine 8.5 (5.0-8.5); Protein,Urine 2+ (Negative); Urobilinogen,Urine 0.2 EU/dl (0.2)
[2019-08-06 16:58] LABS: Barbiturates Screen,Urine Negative ng/ml (<200)
[2019-08-06 16:59] LABS: Amphetamine/Metha Screen,Urine Negative ng/ml (<1000); Benzodiazepines Screen,Urine Negative ng/ml (<200)
[2019-08-06 17:00] LABS: Cannabinoid Screen,Urine Negative ng/ml (<50)
[2019-08-06 17:01] LABS: Cocaine Screen,Urine Negative ng/ml (<300); Methadone Screen,Urine Negative ng/ml (<300)
[2019-08-06 17:02] LABS: Opiate Screen,Urine Negative ng/ml (<300)
[2019-08-06 17:03] LABS: Bacteria,Urine Trace /lpf; Phencyclidine Screen,Urine Negative ng/ml (<25)
--- NOTE | 2019-08-06 17:43 | P.PN_ITS ---
Internal Medicine - PN: Subj *Date: 08/06/19 *Time: 17:43 Interval history: She is 35 weeks with nausea vomiting and dehydration. She was seen in my office this morning and had lost some weight and was feeling nauseous. We have started her on Zofran but she is felt so unwell that she came into labor and delivery. She has a history of hypokalemia and today her potassium is 2.5. It has been as low as 2.1. She has been taking 40 mEq twice daily of potassium at home she says. Exam Vital signs and Labs for Last 24 Hours: Temp Pulse Resp BP Pulse Ox 98.4 F 112 H 18 101/70 L 98 08/06/19 15:45 08/06/19 15:45 08/06/19 15:45 08/06/19 15:45 08/06/19 15:45 Laboratory Results - last 24 hr 08/06/19 10:51: Sodium 127 L, Potassium 2.5 L*, Chloride 74 L, Carbon Dioxide 40 H, Anion Gap 15.5 H, BUN 14, Creatinine 1.40 H, Estimated GFR 45 L, Est GFR ( Amer) 54 L, Glucose 79, Calcium 10.2 08/06/19 15:35: Urine Color Yellow, Urine Appearance Clear, Urine pH 8.5, Ur Specific [place] 1.010, Urine Protein 2+, Urine Glucose (UA) Negative, Urine Ketones Trace, Urine Blood Negative, Urine Nitrate Negative, Urine Bilirubin Negative, Urine Urobilinogen 0.2, Ur Leukocyte Esterase Negative, Urine WBC 3-5, Ur Squamous Epith Cells 10-20, Urine Bacteria Trace 08/06/19 15:35: Urine Opiates Screen Negative, Urine Methadone Screen Negative, Ur Barbituates Screen Negative, Ur Phencyclidine Scrn Negative, Ur Amphetamines Screen Negative, U Benzodiazepines Scrn Negative, Urine Cocaine Screen Negative, U Marijuana (THC) Screen Negative I & O for Last 24 hours: Intake & Output 08/04/19 08/05/19 08/06/19 08/07/19 11:59 11:59 11:59 11:59 Weight 140 lb 6 oz - Constitutional no acute distress - *Routine HEENT Exam Head: Present: normocephalic Eye: Present: EOMI, PERRL ENT: Present: mucous membranes moist Assessment and Plan (1) Nausea and vomiting Current visit: Yes Status: Acute Category: Medical Code(s): R11.2 - Nausea with vomiting, unspecified (2) Dehydration during Current visit: Yes Status: Acute Category: Medical Code(s): O26.899 - Other specified related conditions, unspecified trimester; E86.0 - Dehydration (3) Hypokalemia Current visit: No Status: Acute Category: Medical Code(s): E87.6 - Hypokalemia - Assessment and plan all Dx Assessment and Plan for all problems:: We have given her IV fluids with potassium. We have also given her a bolus of fluid. She has been eating now. We will continue with the oral potassium 40 mEq twice daily. An EKG was normal with just tachycardia. I suspect she was tachycardia as result of her dehydration. She has now returned to a normal heart rate. Her blood pressure is normal. We will plan to continue observation overnight. We will repeat her blood work again in the morning. If she is doing well tomorrow and her blood work has normalized we will send her home otherwise we will keep her for another day.
[2019-08-06 19:50] VITALS: BP 107/65; PULSE 112; RESP 18; TEMP 36.7; O2SAT 98
[2019-08-07 07:04] LABS: Chloride 87 mmol/L (98-107); Sodium 132 mmol/L (136-145)
[2019-08-07 07:06] LABS: Blood Urea Nitrogen 13 mg/dl (7-17); Creatinine Clearance Estimated 65 mL/min (50-200); Estimated Glomerular Filt Rate 49 ml/min (>60); GFR (African American) 59 ML/MIN (>60); Potassium 2.8 mmoL/L (3.5-5.1)
[2019-08-07 07:07] LABS: Alanine Aminotransferase 56 U/L (12-78); Albumin Level 3.1 g/dl (3.5-5.0); Alkaline Phosphatase 124 U/L (38-126); Aspartate Amino Transferase 108 U/L (14-36); Bilirubin,Total 1.3 mg/dl (0.2-1.3); Globulin 3.2 g/dL (1.3-3.2); Glucose 73 mg/dl (74-100); Total Protein,Serum 6.3 g/dl (6.3-8.2)
[2019-08-07 07:08] LABS: Anion Gap 7.8 mEq/L (5-15)
[2019-08-07 07:14] LABS: Carbon Dioxide 38 mmol/L (22.0-30.0)
[2019-08-07 07:59] LABS: Calcium 8.1 mg/dl (8.4-10.2)
[2019-08-07 08:00] VITALS: BP 100/58; PULSE 92; RESP 16; TEMP 36.6; O2SAT 100
--- NOTE | 2019-08-07 08:20 | HMH.ACPN2 ---
Internal Medicine - PN: Subj *Date: 08/07/19 *Time: 08:20 Interval history: She is doing a little better this morning. She is had no further episodes of nausea and vomiting. Her creatinine is still elevated I suspect that she may have kidney disease. Her potassium has risen from 2.5-2.8. She is receiving IV potassium as well as oral potassium replacement. We will repeat her blood work again in the morning. We will have her see Dr. Mansfield today since she continues to have this low potassium. I suspect she has kidney disease given the low potassium as well as increased creatinine. Exam Vital signs and Labs for Last 24 Hours: Temp Pulse Resp BP Pulse Ox 98.1 F 112 H 18 107/65 L 98 08/06/19 19:50 08/06/19 19:50 08/06/19 19:50 08/06/19 19:50 08/06/19 19:50 Laboratory Results - last 24 hr 08/06/19 10:51: Sodium 127 L, Potassium 2.5 L*, Chloride 74 L, Carbon Dioxide 40 H, Anion Gap 15.5 H, BUN 14, Creatinine 1.40 H, Estimated GFR 45 L, Est GFR ( Amer) 54 L, Glucose 79, Calcium 10.2 08/06/19 15:35: Urine Color Yellow, Urine Appearance Clear, Urine pH 8.5, Ur Specific [place] 1.010, Urine Protein 2+, Urine Glucose (UA) Negative, Urine Ketones Trace, Urine Blood Negative, Urine Nitrate Negative, Urine Bilirubin Negative, Urine Urobilinogen 0.2, Ur Leukocyte Esterase Negative, Urine WBC 3-5, Ur Squamous Epith Cells 10-20, Urine Bacteria Trace 08/06/19 15:35: Urine Opiates Screen Negative, Urine Methadone Screen Negative, Ur Barbituates Screen Negative, Ur Phencyclidine Scrn Negative, Ur Amphetamines Screen Negative, U Benzodiazepines Scrn Negative, Urine Cocaine Screen Negative, U Marijuana (THC) Screen Negative 08/07/19 05:30: Sodium 132 L, Potassium 2.8 L*, Chloride 87 L, Carbon Dioxide 38 H, Anion Gap 7.8, BUN 13, Creatinine 1.30 H, Estimated Creat Clear 65, Estimated GFR 49 L, Est GFR ( Amer) 59, Glucose 73 L, Calcium 8.1 L D, Total Bilirubin 1.3, AST 108 H, ALT 56, Alkaline Phosphatase 124, Total Protein 6.3, Albumin 3.1 L, Globulin 3.2, Albumin/Globulin Ratio 1.0 L I & O for Last 24 hours: Intake & Output 08/04/19 08/05/19 08/06/19 08/07/19 11:59 11:59 11:59 11:59 Weight 140 lb 6 oz - Constitutional no acute distress - *Routine HEENT Exam Head: Present: normocephalic Eye: Present: EOMI, PERRL ENT: Present: mucous membranes moist Assessment and Plan (1) Nausea and vomiting Current visit: Yes Status: Acute Category: Medical Code(s): R11.2 - Nausea with vomiting, unspecified (2) Dehydration during Current visit: Yes Status: Acute Category: Medical Code(s): O26.899 - Other specified related conditions, unspecified trimester; E86.0 - Dehydration (3) Hypokalemia Current visit: No Status: Acute Category: Medical Code(s): E87.6 - Hypokalemia - Assessment and plan all Dx Assessment and Plan for all problems:: We will continue with observation today. We will continue with the potassium replacement. We will make arranges for her to have a consult with Dr. Mansfield initially to see if he has any ideas about her hypokalemia and increased creatinine. She will likely need follow-up post delivery. She has had no further episodes of nausea or vomiting. She does have slightly elevated liver function tests as a result of her vomiting I suspect. We will repeat all her blood work again tomorrow.
--- NOTE | 2019-08-07 08:23 | HMH.OBAPHP ---
OB - H&P: HPI Antepartum - History of Present Illness Chief complaint: Nausea vomiting dehydration, hypokalemia History of present illness: She is a 29-year-old 8 para 5 aborta 2 who is 35+ weeks gestational age. She was seen in my office earlier in the day and had nausea vomiting and dehydration. She has a history of low potassium. She says that she has only low potassium in her pregnancies. She was admitted a couple of weeks ago with an extremely low potassium and started on IV as well as oral potassium at that time. Today her potassium was repeated and it was 2.5. She is also lost 11 pounds in the last week. She has not been able to keep anything down for a week she said. She was feeling quite unwell when she came to labor and delivery. She has never had any investigations about her low potassium. Her creatinine is also slightly elevated and I suspect she may have kidney disease. [facility] History I have reviewed the patient's past medical history: Yes Medical History: Reports:: Gastroesophageal Reflux Disease(GERD) Denies:: Cancer, Diabetes Mellitus Type 1, Diabetes Mellitus Type 2, MRSA, Seizures *Have you ever received a pneumonia vaccine?: No *Have you received a flu vaccine this season?: No Other Medical History: Denies: Blood Transfusion Reaction Laterality Cases: Bilateral: Myringotomy (Ear Tubes) Other Surgeries: Yes: , Dilation and Curettage, Other Amputation: No Fractures: No - *Social History Smoking Status: Never smoker Alcohol Intake: never Alcohol Intake Frequency:: other Substance Use Type: denies use *Occupational Status:: unemployed Housing: house Household Members: spouse *Travel in the last 8 weeks: None Family Hx:: Cancer, Diabetes, Heart Attack, Stroke, Hypertension [employer]ISS[employer]ING [employer]PA[employer] 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 Review of Systems - Review of Systems Review of systems:: pertinent systems reviewed and negative unless documented below Meds Home Medications Medication Instructions Recorded Confirmed Type Ferrous Sulfate 325 mg PO DAILY 07/18/19 08/06/19 History Prenat Vit 17/Iron/Folic/Om3,6 1 cap PO DAILY 07/18/19 08/06/19 History [Elite-Ob 400 Capsule] Famotidine [Acid Brigadier] 20 mg PO DAILY 08/06/19 08/06/19 History Potassium Chloride [Klor-con 20 40 meq PO BID 08/06/19 08/06/19 History mEq tablet] ondansetron 4 mg disintegrating 4 mg PO Q6H PRN #30 tab 08/06/19 08/06/19 Rx tablet Allergies Allergy/AdvReac Type Severity Reaction Status Date / Time No Known Allergies Allergy Verified 08/06/19 09:56 OB - H&P: Exam - Physical Exam Vital signs: Temp Pulse Resp BP Pulse Ox 98.1 F 112 H 18 107/65 L 98 08/06/19 19:50 08/06/19 19:50 08/06/19 19:50 08/06/19 19:50 08/06/19 19:50 - Constitutional no acute distress - Routine HEENT Exam Head: Present: normocephalic Eye: Present: EOMI, PERRL ENT: Present: mucous membranes moist - Routine Neck Exam Present: supple, full ROM - Routine Respiratory Exam Absent: accessory muscle use (good air entry bilaterally), respiratory distress, wheezes, crackles - Routine Cardiovascular Exam Present: RRR. Absent: murmur - Routine Abdominal Exam Present: soft, normoactive bowel sounds. Absent: tenderness, distended, guarding - Routine Rectal Exam Patient deferred: visual exam, digital exam - Routine Exam Patient deferred: external exam, groin exam, perineal exam - Routine Extremities Exam Present: full ROM. Absent: cyanosis, edema - Routine Skin Exam Present: intact. Absent: cyanosis - Routine Neurological Exam Present: alert, oriented X3 - Routine Psychiatric Exam Present: normal affect OB - Results - Labs Labs: [facility] 08/06/19 08/07/19 10:51 05:30 Sodium 127 L 132 L Potassium 2.5 L* 2.8 L* Chloride 74 L 87 L Carbon Dioxide 40 H 38 H BUN 14 13 Creatinine 1.40 H 1.30 H Glucose 79 73 L Calcium 10.2 8.1 L D Liver Function
--- NOTE | 2019-08-07 10:03 | HMH.PHAINT ---
MEDICATION RECONCILIATION COMPLETED USING EXTERNAL FILL HISTORY
[2019-08-07 12:00] VITALS: BP 109/60; PULSE 96; RESP 17; TEMP 36.7; O2SAT 98
[2019-08-07 16:00] VITALS: BP 107/64; PULSE 90; RESP 16; TEMP 36.7; O2SAT 100
[2019-08-08 06:27] LABS: Chloride 105 mmol/L (98-107); Potassium 3.7 mmoL/L (3.5-5.1); Sodium 136 mmol/L (136-145)
[2019-08-08 06:30] LABS: Alanine Aminotransferase 50 U/L (12-78); Albumin Level 2.2 g/dl (3.5-5.0); Alkaline Phosphatase 90 U/L (38-126); Anion Gap 6.7 mEq/L (5-15); Aspartate Amino Transferase 74 U/L (14-36); Bilirubin,Direct 0.1 mg/dl (0.0-0.4); Bilirubin,Indirect 0.3 mg/dL (0.0-0.9); Bilirubin,Total 0.4 mg/dl (0.2-1.3); Bilirubin,Unconjugated 0.3 mg/dL (0.0-1.1); Blood Urea Nitrogen 7 mg/dl (7-17); Carbon Dioxide 28 mmol/L (22.0-30.0); Creatinine Clearance Estimated 94 mL/min (50-200); Estimated Glomerular Filt Rate 75 ml/min (>60); GFR (African American) 90 ML/MIN (>60); Glucose 73 mg/dl (74-100); Total Protein,Serum 4.7 g/dl (6.3-8.2)
[2019-08-08 07:16] LABS: Calcium 6.8 mg/dl (8.4-10.2)
[2019-08-08 08:00] VITALS: BP 99/59; PULSE 85; RESP 17; TEMP 36.7; O2SAT 99
--- NOTE | 2019-08-08 08:31 | P.PN_ITS ---
Internal Medicine - PN: Subj *Date: 08/08/19 *Time: 08:31 Interval history: She is doing better this morning. She is eating and drinking and ambulating. She did have some nausea first thing this morning but she has not thrown up for a couple of days. She has a consult with Dr. Mansfield today. Her blood work has normalized her potassium is 3.7, her liver function tests have normalized. Her creatinine and BUN have also normalized. Exam Vital signs and Labs for Last 24 Hours: Temp Pulse Resp BP Pulse Ox 98.0 F 85 17 99/59 L 99 08/08/19 08:00 08/08/19 08:00 08/08/19 08:00 08/08/19 08:00 08/08/19 08:00 Laboratory Results - last 24 hr 08/08/19 05:50: Sodium 136, Potassium 3.7 D, Chloride 105 D, Carbon Dioxide 28 D, Anion Gap 6.7, BUN 7 D, Creatinine 0.90 D, Estimated Creat Clear 94, Estimated GFR 75, Est GFR ( Amer) 90 D, Glucose 73 L, Calcium 6.8 L D, Total Bilirubin 0.4, Direct Bilirubin 0.1, Conjugated Bilirubin 0.0, Indirect Bilirubin 0.3, Unconjugated Bilirubin 0.3, AST 74 H D, ALT 50, Alkaline Phosphatase 90, Total Protein 4.7 L D, Albumin 2.2 L D I & O for Last 24 hours: Intake & Output 08/05/19 08/06/19 08/07/19 08/08/19 11:59 11:59 11:59 11:59 Intake Total 3330 / 3330 Output Total 1500 / 1500 Balance 1830 / 1830 Weight 140 lb 6 oz - Constitutional no acute distress - *Routine HEENT Exam Head: Present: normocephalic Eye: Present: EOMI, PERRL ENT: Present: mucous membranes moist Assessment and Plan (1) Nausea and vomiting Current visit: Yes Status: Acute Category: Medical Code(s): R11.2 - Nausea with vomiting, unspecified (2) Dehydration during Current visit: Yes Status: Acute Category: Medical Code(s): O26.899 - Oth er specified related conditions, unspecified trimester; E86.0 - Dehydration (3) Hypokalemia Current visit: No Status: Acute Category: Medical Code(s): E87.6 - Hypokalemia - Assessment and plan all Dx Assessment and Plan for all problems:: She will continue on with hospitalization this morning. Should be seen later on by Dr. Mansfield. We will consider sending her home later on this afternoon. We will plan to deliver her by 39 weeks.
[2019-08-08 12:00] VITALS: BP 103/70; PULSE 99; RESP 16; O2SAT 100
--- NOTE | 2019-08-08 16:59 | HMH.DCSUM ---
General - General Admission date:: 08/06/19 Discharge date: 08/08/19 HPI HPI: She is a 29-year-old 8 para 5 aborta 2 who was 35+ weeks gestational age. She had severe nausea vomiting and dehydration. She has been followed throughout the and most recently has had hypokalemia. On admission here her potassium was 2.2. As result that we elected to admit her for rehydration and replacement of her potassium. Hospital Course Hospital Course: She was given IV fluids as well as IV Zofran. She has done very well. She received potassium replacement therapy as well. EKG just showed tachycardia but otherwise it was normal. We will send her home to follow-up with me in approximately a week's time. She will follow-up with Dr. Mcgrath next week. She will continue with her Zofran and will take 40 mEq of potassium twice daily. Her condition on discharge is stable and improved. While hospitalized she saw Dr. Mansfield and he did not think she had any problems with her kidneys and he felt that her high creatinine levels was as a result of her dehydration and nausea vomiting. He agreed that we should probably have her see a oil developer after she has delivered. Rhogam Administration: Not Indicated Objective Vital signs: Temp Pulse Resp BP Pulse Ox 98.0 F 99 H 16 103/70 L 100 08/08/19 08:00 08/08/19 12:00 08/08/19 12:00 08/08/19 12:00 08/08/19 12:00 no acute distress - *Routine HEENT Exam Head: Present: normocephalic Eye: Present: EOMI, PERRL ENT: Present: mucous membranes moist Results Labs on day of discharge: Labs from last 24 hours 08/08/19 05:50 Sodium 136 Potassium 3.7 D Chloride 105 D Carbon Dioxide 28 D Anion Gap 6.7 BUN 7 D Creatinine 0.90 D Estimated Creat Clear 94 Estimated GFR 75 Est GFR ( Amer) 90 D Glucose 73 L Calcium 6.8 L D Total Bilirubin 0.4 Direct Bilirubin 0.1 Conjugated Bilirubin 0.0 Indirect Bilirubin 0.3 Unconjugated Bilirubin 0.3 AST 74 H D ALT 50 Alkaline Phosphatase 90 Total Protein 4.7 L D Albumin 2.2 L D DS: Diagnosis - Discharge Diagnosis (1) Nausea and vomiting Status: Acute (2) Dehydration during Status: Acute (3) Hypokalemia Status: Acute Discharge Plan - Patient Discharge Instructions ACTIVITY: No heavy lifting DIET: continue same diet Additional Instructions: REST TAKE MEDS PRESCRIBED Patient Instructions: DI for Hypokalemia, How to Do Kick Counts, Preventing the Spread of Coronavirus Discharge Instructions, Antepartum Care - Follow up Plan Follow up with: Boby Ramon MD [Staff Physician] - 08/13/19 9:30 am Seamus Mansfield MD [Staff Physician] - 09/12/19 1:00 pm Disposition: Home, Self-Nursing Home Medications: Home Medications Medication Instructions Recorded Confirmed Type Ferrous Sulfate 325 mg PO DAILY 07/18/19 08/06/19 History Prenat Vit 17/Iron/Folic/Om3,6 1 cap PO DAILY 07/18/19 08/06/19 History [Elite-Ob 400 Capsule] Famotidine [Acid Meeting Coordinator] 20 mg PO DAILY 08/06/19 08/06/19 History Potassium Chloride [Klor-con 20 40 meq PO BID 08/06/19 08/06/19 History mEq tablet] ondansetron 4 mg disintegrating 4 mg PO Q6H PRN #30 tab 08/06/19 08/06/19 Rx tablet Prescriptions/Medication Reconciliation: Continued ondansetron 4 mg disintegrating tablet 4 mg PO Q6H PRN #30 tab PRN Reason: nausea and vomiting Prenat Vit 17/Iron/Folic/Om3,6 [Elite-Ob 400 Capsule] 1 cap PO DAILY Ferrous Sulfate 325 mg PO DAILY Potassium Chloride [Klor-con 20 mEq tablet] 40 meq PO BID Famotidine [Acid Meeting Coordinator] 20 mg PO DAILY - Problem Reconciliation Problems Reviewed?: Yes
--- NOTE | 2019-08-08 17:18 | HMH.CONS ---
*Admission Date: 08/06/19 *Reason for consult:: Elevated creatinine and hypokalemia *History of present illness: Patient is a 29-year-old white female is 35 weeks who is admitted on August 05 with nausea vomiting and dehydration. Creatinine was noted to be elevated to 1.4 and her potassium was 2.5. Her creatinine has improved over the last 3 days and is now within normal limits at 0.9. Her creatinine on July 29 was normal at 0.5. Of more concern to Dr. Marin was her potassium level which is noted to be decreased on this and subsequent pregnancies in the later trimesters. She states her potassium levels are normal otherwise. [facility] History Medical History: Reports:: Gastroesophageal Reflux Disease(GERD) Denies:: Cancer, Diabetes Mellitus Type 1, Diabetes Mellitus Type 2, MRSA, Seizures *Have you ever received a pneumonia vaccine?: No *Have you received a flu vaccine this season?: No Other Medical History: Denies: Blood Transfusion Reaction Laterality Cases: Bilateral: Myringotomy (Ear Tubes) Other Surgeries: Yes: , Dilation and Curettage, Other Amputation: No Fractures: No - *Social History Smoking Status: Never smoker Alcohol Intake: never Alcohol Intake Frequency:: other Substance Use Type: denies use *Occupational Status:: unemployed Housing: house Household Members: spouse *Travel in the last 8 weeks: None Family Hx:: Cancer, Diabetes, Heart Attack, Stroke, Hypertension 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 Meds Home Medications Medication Instructions Recorded Confirmed Type Ferrous Sulfate 325 mg PO DAILY 07/18/19 08/06/19 History Prenat Vit 17/Iron/Folic/Om3,6 1 cap PO DAILY 07/18/19 08/06/19 History [Elite-Ob 400 Capsule] Famotidine [Acid Punch Card Operator] 20 mg PO DAILY 08/06/19 08/06/19 History Potassium Chloride [Klor-con 20 40 meq PO BID 08/06/19 08/06/19 History mEq tablet] ondansetron 4 mg disintegrating 4 mg PO Q6H PRN #30 tab 08/06/19 08/06/19 Rx tablet Allergies Allergy/AdvReac Type Severity Reaction Status Date / Time No Known Allergies Allergy Verified 08/06/19 09:56 Exam Vital signs and Labs for Last 24 Hours: Temp Pulse Resp BP Pulse Ox 98.0 F 99 H 16 103/70 L 100 08/08/19 08:00 08/08/19 12:00 08/08/19 12:00 08/08/19 12:00 08/08/19 12:00 Laboratory Results - last 24 hr 08/08/19 05:50: Sodium 136, Potassium 3.7 D, Chloride 105 D, Carbon Dioxide 28 D, Anion Gap 6.7, BUN 7 D, Creatinine 0.90 D, Estimated Creat Clear 94, Estimated GFR 75, Est GFR ( Amer) 90 D, Glucose 73 L, Calcium 6.8 L D, Total Bilirubin 0.4, Direct Bilirubin 0.1, Conjugated Bilirubin 0.0, Indirect Bilirubin 0.3, Unconjugated Bilirubin 0.3, AST 74 H D, ALT 50, Alkaline Phosphatase 90, Total Protein 4.7 L D, Albumin 2.2 L D I & O for Last 24 hours: Intake & Output 08/05/19 08/06/19 08/07/19 08/08/19 23:59 23:59 23:59 23:59 Intake Total 1040 / 1040 2290 / 2290 Output Total 800 / 800 700 / 700 Balance 240 / 240 1590 / 1590 Weight 63.673 kg Narrative: Well-nourished white female no apparent distress Pupils equal round react light Head is normocephalic Neck is symmetric Normal respiratory effort Abdomen normal visual inspection and is a gravid uterus Alert oriented x3 Internal Medicine - CN: Reslt - Labs CBC & Chem 7: 08/08/19 05:50 Labs: BMP 08/08/19 05:50 Sodium 136 Potassium 3.7 D Chloride 105 D Carbon Dioxide 28 D BUN 7 D Creatinine 0.90 D Glucose 73 L Calcium 6.8 L D Liver Function 08/08/19 Range/Units 05:50 Total Bilirubin 0.4 (0.2-1.3) mg/dl Direct Bilirubin 0.1 (0.0-0.4) mg/dl AST 74 H D (14-36) U/L ALT 50 (12-78) U/L Alkaline Phosphatase 90 (38-126) U/L Albumin 2.2 L D (3.5-5.0) g/dl Assessment and Plan (1) Nausea and vomiting Status: Acute Category: Medical Code(s): R11.2 - Nausea with vomiting, unspecified (2) Dehydration during Status: Acu
== END 2019-08-08 16:58 | disposition home or self-care (01) ==
LOC: OB 15:28
PROVIDERS: Admitting Provider Nurse Practitioner Obstetrics & Gynecology; Visit Provider Nurse Practitioner Obstetrics & Gynecology
DX: O21.2 Late vomiting of pregnancy (principal); E86.0 Dehydration; Z3A.35 35 weeks gestation of pregnancy; E87.6 Hypokalemia
CPT/HCPCS: 36415; 59025; 80048; 80053; 80076; 80305; 81001; 86403; 93005; 96360; 96361; 96367; G0378; J2405

== ENCOUNTER 2019-08-19 17:52 | Inpatient (IN) | payer OTHER, SELFPAY ==
[2019-08-19 14:25] VITALS: BMI 25.7
--- NOTE | 2019-08-19 14:29 | US_ITS ---
PROCEDURE: US OB FOLLOW UP CLINICAL INDICATION: for growth Evaluate growth, preeclampsia COMPARISON: US OB /MATERNAL DETAIL from 08/01/2019 FINDINGS: There is a single live fetus which is in cephalic presentation. heart and body motion noted. Biophysical profile is 8 of 8. ANURADHA is 11 cm. Average ultrasound age is 34 weeks 2 days. Estimated weight is 2322 g which is 2 percentile. Previously on 08/01/2019, the estimated weight was 2317 g which was 20th percentile. BPD 34 weeks 6 days, OFD 34 weeks 2 days, HC 34 weeks 1 day, AC 33 weeks 6 days, FL 34 weeks 0 days. All parameters correlate. Cervix is closed and measures 3 cm. Placenta is anterior in implantation and grade 1 IMPRESSION: Live IUP in cephalic presentation with an average ultrasound age of 34 weeks 2 days. Estimated weight is 2003 and 22 g which is 2 percentile indicating intrauterine growth restriction Biophysical profile 8 of 8 Dictated by: Brandin Morales MD 08/19/2019 16:11 Electronically signed by Brandin Morales MD in [place] 08/19/2019 16:11
[2019-08-19 16:02] LABS: Basophils % 0.3 % (0.1-2.0); Eosinophils # 0.1 K/mm3 (0.0-0.4); Eosinophils % 0.5 % (0.1-12.0); Hematocrit 32.8 % (37.0-47.0); Hemoglobin 11.6 g/dL (12.2-16.2); Lymphocytes # 3.1 K/mm3 (0.7-4.5); Lymphocytes % 31.6 % (10-50); Mean Corpuscular HGB Conc 35.4 g/dL (31.8-35.4); Mean Corpuscular Hemoglobin 32.2 pg (27.0-31.2); Mean Corpuscular Volume 91.1 fl (81-99); Mean Platelet Volume 11.3 fl (7.4-10.4); Monocytes # 0.6 K/mm3 (0.1-1.0); Monocytes % 5.9 % (1.7-9.3); Neutrophils % 61.7 % (37.0-80.0); Platelet Count 221 K/mm3 (142-424); Red Cell Distribution Width 17.3 % (11.5-17.5); White Blood Count 9.8 K/mm3 (4.8-10.8)
[2019-08-19 16:15] LABS: Blood Urea Nitrogen 14 mg/dl (7-17); Creatinine Clearance Estimated 72 mL/min (50-200); Estimated Glomerular Filt Rate 53 ml/min (>60); GFR (African American) 65 ML/MIN (>60)
[2019-08-19 16:16] LABS: Calcium 9.2 mg/dl (8.4-10.2); Carbon Dioxide 38 mmol/L (22.0-30.0); Glucose 90 mg/dl (74-100)
[2019-08-19 16:17] LABS: Potassium 2.8 mmoL/L (3.5-5.1)
[2019-08-19 16:26] VITALS: BMI 26.5
[2019-08-19 16:35] VITALS: BP 106/67; PULSE 100; RESP 16; TEMP 37.1; O2SAT 98
--- NOTE | 2019-08-19 17:11 | HMH.OBAPHP ---
OB - H&P: HPI Antepartum - History of Present Illness Chief complaint: Hypokalemia, severe IUGR History of present illness: She is a 29-year-old 7 para 4 aborta 2 who was 37 weeks gestational age. She was seen in my office today and was feeling slightly unwell. As result of that we sent her to labor and delivery. She has had multiple admissions for hypokalemia. Her potassium today is 2.8. An ultrasound showed that her baby was only second centile although the fluid is normal. As result of that we will plan to admit her, rehydrate her, start her on potassium both orally and IV. We will plan to induce her in 48 hours since the baby is small. - History of Present Criteria for establishing EDC:: LMP confirmed by 1st trimester US care: good care Ultrasounds: normal 1st trimester US, normal mid trimester US Obstetrical complications: growth restriction, other Medical complications: other [facility] History I have reviewed the patient's past medical history: Yes Medical History: Reports:: Gastroesophageal Reflux Disease(GERD) Denies:: Cancer, Diabetes Mellitus Type 1, Diabetes Mellitus Type 2, MRSA, Seizures *Have you ever received a pneumonia vaccine?: No *Have you received a flu vaccine this season?: No Other Medical History: Denies: Blood Transfusion Reaction Laterality Cases: Bilateral: Myringotomy (Ear Tubes) Other Surgeries: Yes: , Dilation and Curettage, Other Amputation: No Fractures: No - *Social History Smoking Status: Never smoker Alcohol Intake: never Alcohol Intake Frequency:: other Substance Use Type: denies use *Occupational Status:: unemployed Housing: house Household Members: spouse *Travel in the last 8 weeks: None Family Hx:: Cancer, Diabetes, Heart Attack, Stroke, Hypertension 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 Review of Systems - Review of Systems Review of systems:: pertinent systems reviewed and negative unless documented below Meds Home Medications Medication Instructions Recorded Confirmed Type RX: Ferrous Sulfate 325 mg PO DAILY 07/18/19 08/19/19 History RX: Prenat Vit 17/Iron/Folic/Om3,6 1 cap PO DAILY 07/18/19 08/19/19 History [Elite-Ob 400 Capsule] RX: Famotidine [Acid Acquisition Lead] 20 mg PO DAILY 08/06/19 08/19/19 History RX: Potassium Chloride [Klor-con 40 meq PO BID 08/06/19 08/19/19 History 20 mEq tablet] ondansetron 4 mg disintegrating 4 mg PO Q6H PRN #30 tab 08/06/19 08/19/19 Rx tablet Allergies Allergy/AdvReac Type Severity Reaction Status Date / Time No Known Allergies Allergy Verified 08/19/19 13:30 OB - H&P: Exam - Physical Exam Vital signs: Temp Pulse Resp BP Pulse Ox 98.7 F 100 H 16 106/67 L 98 08/19/19 16:35 08/19/19 16:35 08/19/19 16:35 08/19/19 16:35 08/19/19 16:35 - Constitutional no acute distress - Routine HEENT Exam Head: Present: normocephalic Eye: Present: EOMI, PERRL ENT: Present: mucous membranes moist - Routine Neck Exam Present: supple, full ROM - Routine Respiratory Exam Absent: accessory muscle use (good air entry bilaterally), respiratory distress, wheezes, crackles - Routine Cardiovascular Exam Present: RRR. Absent: murmur - Routine Abdominal Exam Present: soft, normoactive bowel sounds. Absent: tenderness, distended, guarding - Routine Rectal Exam Patient deferred: visual exam, digital exam - Routine Exam Patient deferred: external exam, groin exam, perineal exam - Routine Extremities Exam Present: full ROM. Absent: cyanosis, edema - Routine Skin Exam Present: intact. Absent: cyanosis - Routine Neurological Exam Present: alert, oriented X3 - Routine Psychiatric Exam Present: normal affect OB - Results - Labs Labs: Short CBC 08/19/19 Range/Units 15:20 WBC 9.8 (4.8-10.8) K/mm3 Hgb 11.6 L (12.2-16.2) g/dL Hct 32.8 L (37.0-47.0) % Plt Count 221 (142-424) K/mm3 [facility] 08/19/19 15:20 Potassium
[2019-08-19 18:11] LABS: Anion Gap 10.8 mEq/L (5-15); Chloride 83 mmol/L (98-107); Sodium 129 mmol/L (136-145)
[2019-08-19 18:41] LABS: Coronavirus 19 IgG Antibody Negative (Negative); Coronavirus 19 IgM Antibody Negative (Negative)
[2019-08-20 07:20] VITALS: BP 95/52; PULSE 69; RESP 16; TEMP 36.4; O2SAT 100
--- NOTE | 2019-08-20 10:20 | HMH.PHAINT ---
MEDICATION RECONCILIATION COMPLETED ON PATIENT USING EXTERNAL FILL HISTORY FROM PHARMACY AND LIST FROM MD OFFICE. -JAN LUBIND
[2019-08-20 10:43] LABS: Chloride 95 mmol/L (98-107); Potassium 3.4 mmoL/L (3.5-5.1); Sodium 131 mmol/L (136-145)
[2019-08-20 10:46] LABS: Anion Gap 9.4 mEq/L (5-15); Blood Urea Nitrogen 10 mg/dl (7-17); Carbon Dioxide 30 mmol/L (22.0-30.0); Creatinine Clearance Estimated 87 mL/min (50-200); Estimated Glomerular Filt Rate 66 ml/min (>60); GFR (African American) 80 ML/MIN (>60); Glucose 101 mg/dl (74-100)
[2019-08-20 10:59] LABS: Calcium 8.1 mg/dl (8.4-10.2)
[2019-08-20 12:00] VITALS: BP 98/62; PULSE 91; RESP 18; TEMP 36.7; O2SAT 100
[2019-08-20 15:40] VITALS: BP 98/59; PULSE 75; RESP 16; TEMP 36.8; O2SAT 100
[2019-08-20 16:09] LABS: Microscopic, Urine URINE MICROSCOPIC (MICROSCOPIC)
[2019-08-20 16:13] LABS: Appearance,Urine CLEAR (Clear); Bilirubin,Urine Negative (Negative); Blood, Urine Negative (Negative); Color,Urine YELLOW (Yellow); Glucose,Urine (UA) Negative (Negative); Ketones,Urine Negative (Negative); Leukocyte Esterase,Urine Negative (Negative); Nitrate,Urine Negative (Negative); PH,Urine 8.5 (5.0-8.5); Protein,Urine Negative (Negative); Specific Gravity, Urine 1.015 (1.005-1.030); Urobilinogen,Urine 0.2 EU/dl (0.2)
[2019-08-20 16:25] LABS: Bacteria,Urine Trace /lpf; Squamous Epithelial Cell,Urine Occasional #/hpf (0-5); WBC,Urine Occasional #/hpf (0-3)
--- NOTE | 2019-08-20 17:39 | HMH.ACPN2 ---
Internal Medicine - PN: Subj *Date: 08/20/19 *Time: 17:39 Interval history: She is doing well today. She feels much better. She is having occasional contractions. Baby is active. She has received IV potassium overnight and her potassium today is 3.4. We will plan to induce her tomorrow since she has severe IUGR. Exam Vital signs and Labs for Last 24 Hours: Temp Pulse Resp BP Pulse Ox 98.2 F 75 16 98/59 L 100 08/20/19 15:40 08/20/19 15:40 08/20/19 15:40 08/20/19 15:40 08/20/19 15:40 Laboratory Results - last 24 hr 08/19/19 15:20: Sodium 129 L, Chloride 83 L, Anion Gap 10.8 08/19/19 15:20: SARS-CoV-2 IgG Ab (Rapid) Negative, SARS-CoV-2 IgM Ab (Rapid) Negative 08/19/19 15:20: Blood Type O Positive, Antibody Screen Negative 08/20/19 10:05: Sodium 131 L, Potassium 3.4 L D, Chloride 95 L, Carbon Dioxide 30 D, Anion Gap 9.4, BUN 10 D, Creatinine 1.00, Estimated Creat Clear 87, Estimated GFR 66, Est GFR ( Amer) 80 D, Glucose 101 H, Calcium 8.1 L D 08/20/19 15:40: Urine Color Yellow, Urine Appearance Clear, Urine pH 8.5, Ur Specific [place] 1.015, Urine Protein Negative, Urine Glucose (UA) Negative, Urine Ketones Negative, Urine Blood Negative, Urine Nitrate Negative, Urine Bilirubin Negative, Urine Urobilinogen 0.2, Ur Leukocyte Esterase Negative, Urine WBC Occasional, Ur Squamous Epith Cells Occasional, Urine Bacteria Trace I & O for Last 24 hours: Intake & Output 08/18/19 08/19/19 08/20/19 08/21/19 11:59 11:59 11:59 11:59 Weight 145 lb - Constitutional no acute distress Assessment and Plan (1) Intrauterine growth restriction (IUGR) affecting care of mother Current visit: Yes Status: Acute Category: Medical Code(s): O36.5990 - Maternal care for other known or suspected poor growth, unspecified trimester, not applicable or unspecified (2) Hypokalemia Current visit: No Status: Acute Category: Medical Code(s): E87.6 - Hypokalemia - Assessment and plan all Dx Assessment and Plan for all problems:: She is doing well today. We will plan to induce her tomorrow since she has severe IUGR. The baby is second centile.
[2019-08-21 07:17] LABS: Chloride 101 mmol/L (98-107); Potassium 3.7 mmoL/L (3.5-5.1); Sodium 134 mmol/L (136-145)
[2019-08-21 07:20] LABS: Anion Gap 8.7 mEq/L (5-15); Blood Urea Nitrogen 7 mg/dl (7-17); Calcium 8.6 mg/dl (8.4-10.2); Carbon Dioxide 28 mmol/L (22.0-30.0); Creatinine Clearance Estimated 109 mL/min (50-200); Estimated Glomerular Filt Rate 85 ml/min (>60); GFR (African American) 103 ML/MIN (>60); Glucose 68 mg/dl (74-100)
[2019-08-21 08:00] VITALS: BP 108/66; PULSE 70; RESP 18; TEMP 36.7; O2SAT 100
--- NOTE | 2019-08-21 08:35 | P.PN_ITS ---
Internal Medicine - PN: Subj *Date: 08/21/19 *Time: 08:35 Interval history: She is doing well this morning. She is eating and drinking and ambulating. She has a very small for gestational age infant and as result of that we plan to induce her labor this morning. Exam Vital signs and Labs for Last 24 Hours: Temp Pulse Resp BP Pulse Ox 98.1 F 70 18 108/66 L 100 08/21/19 08:00 08/21/19 08:00 08/21/19 08:00 08/21/19 08:00 08/21/19 08:00 Laboratory Results - last 24 hr 08/20/19 10:05: Sodium 131 L, Potassium 3.4 L D, Chloride 95 L, Carbon Dioxide 30 D, Anion Gap 9.4, BUN 10 D, Creatinine 1.00, Estimated Creat Clear 87, Estimated GFR 66, Est GFR ( Amer) 80 D, Glucose 101 H, Calcium 8.1 L D 08/20/19 15:40: Urine Color Yellow, Urine Appearance Clear, Urine pH 8.5, Ur Specific [place] 1.015, Urine Protein Negative, Urine Glucose (UA) Negative, Urine Ketones Negative, Urine Blood Negative, Urine Nitrate Negative, Urine Bilirubin Negative, Urine Urobilinogen 0.2, Ur Leukocyte Esterase Negative, Urine WBC Occasional, Ur Squamous Epith Cells Occasional, Urine Bacteria Trace 08/21/19 06:15: Sodium 134 L, Potassium 3.7, Chloride 101, Carbon Dioxide 28, Anion Gap 8.7, BUN 7 D, Creatinine 0.80, Estimated Creat Clear 109, Estimated GFR 85, Est GFR ( Amer) 103 D, Glucose 68 L D, Calcium 8.6 I & O for Last 24 hours: Intake & Output 08/18/19 08/19/19 08/20/19 08/21/19 11:59 11:59 11:59 11:59 Weight 145 lb - Constitutional no acute distress - *Routine HEENT Exam Head: Present: normocephalic Eye: Present: EOMI, PERRL ENT: Present: mucous membranes moist Assessment and Plan (1) Intrauterine growth restriction (IUGR) affecting care of mother Current visit: Yes Status: Acute Category: Medical Code(s): O36.5990 - Maternal care for other known or suspected poor growth, unspecified trimester, not applicable or unspecified (2) Hypokalemia Current visit: No Status: Acute Category: Medical Code(s): E87.6 - Hypokalemia - Assessment and plan all Dx Assessment and Plan for all problems:: She is doing well this morning. We plan to induce her labor today.
--- NOTE | 2019-08-21 08:51 | HMH.LABNOT ---
Labor Note - Subjective: Date: 08/21/19 Time: 08:51 irregular contractions - Objective: NST:: Reactive Contractions:: every 4-5 minutes Cervical Dilation:: 2-3 Effacement:: 50% Station: -2 Membranes: artificially ruptured - Fetus: Monitoring?: Yes monitoring type:: Internal and External Comment:: I inserted an IUPC - Assessment: Labor progressing?: Yes Cephalopelvic disproportion?: No Patient Problems: All Active Problems Intrauterine growth restriction (IUGR) affecting care of mother (Acute) Nausea and vomiting (Acute) Dehydration during (Acute) Bleeding in early (Acute) Hypokalemia (Acute) (Acute) Hypocalcemia (Acute) - Plan: Anesthesia for epidural?: No Continue to labor down?: Yes Plan for ?: No Continue to monitor?: Yes Start pushing?: No
--- NOTE | 2019-08-21 12:12 | HMH.LABNOT ---
Labor Note - Subjective: Date: 08/21/19 Time: 11:00 regular contraction - Objective: NST:: Reactive Cervical Dilation:: 5-6 Effacement:: 75% Station: 0 Membranes: artificially ruptured - Fetus: Monitoring?: Yes monitoring type:: Internal and External - Assessment: Labor progressing?: Yes Cephalopelvic disproportion?: No Patient Problems: All Active Problems Intrauterine growth restriction (IUGR) affecting care of mother (Acute) Nausea and vomiting (Acute) Dehydration during (Acute) Bleeding in early (Acute) Hypokalemia (Acute) (Acute) Hypocalcemia (Acute) - Plan: Anesthesia for epidural?: Yes Continue to labor down?: Yes Plan for ?: No Continue to monitor?: Yes Start pushing?: No
--- NOTE | 2019-08-21 13:10 | HMH.ANESCL ---
[facility] Anesthesia Checklist - Patient Identification Patient Identification: Arm Band, Verbal (Name & ) - Structural Data Admitted From: Home Planned Operative Procedure/s: Labor epidural Consent for Planned Operative Procedure(s) Verified: Yes Verified Documents: Surgical Consent, History and Physical - NPO Status Verified Time NPO: 00:00 - Chart Verification Results Verified: CBC, BMP - Additional verifications Patient : Yes Anesthesia Reactions: No Hx Blood Transfusions: Yes Blood Transfusion Reaction: No - Airway Assessment C-Spine Mobility Assessed: Yes TMJ Mobility Assessed: Yes Dentition: Good Dentition - Neurological Assessment Level of Consciousness: Awake, Alert, Appropriate, Follows Commands Hx Seizures: No Numbness or tingling in extremities: No - Anesthesia Plan Anesthesia Risk discussed: Yes Anesthesia Plan: Verified ASA Class: II Anesthesia Type: Epidural [facility] History I have reviewed the patient's past medical history: Yes Medical History: Reports:: Gastroesophageal Reflux Disease(GERD) Denies:: Cancer, Diabetes Mellitus Type 1, Diabetes Mellitus Type 2, MRSA, Seizures *Have you ever received a pneumonia vaccine?: No *Have you received a flu vaccine this season?: No Other Medical History: Denies: Blood Transfusion Reaction Anesthesia experience/problems:: None Laterality Cases: Bilateral: Myringotomy (Ear Tubes) Other Surgeries: Yes: , Dilation and Curettage, Other Amputation: No Fractures: No - *Social History Smoking Status: Never smoker Alcohol Intake: never Alcohol Intake Frequency:: other Substance Use Type: denies use *Occupational Status:: unemployed Housing: house Household Members: spouse *Travel in the last 8 weeks: None Family Hx:: Cancer, Diabetes, Heart Attack, Stroke, 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
--- NOTE | 2019-08-21 14:55 | HMH.LABNOT ---
Labor Note - Subjective: Date: 08/21/19 Time: 14:55 regular contraction - Objective: NST:: Reactive Contractions:: every 2-3 minutes Cervical Dilation:: 7 Effacement:: 100% Station: 0 Membranes: artificially ruptured - Fetus: Monitoring?: Yes monitoring type:: External - Assessment: Labor progressing?: Yes Cephalopelvic disproportion?: No Patient Problems: All Active Problems Intrauterine growth restriction (IUGR) affecting care of mother (Acute) Nausea and vomiting (Acute) Dehydration during (Acute) Bleeding in early (Acute) Hypokalemia (Acute) (Acute) Hypocalcemia (Acute) - Plan: Anesthesia for epidural?: Yes Continue to labor down?: Yes Plan for ?: No Continue to monitor?: Yes Start pushing?: No
[2019-08-21 16:00] VITALS: BP 99/70; PULSE 77; RESP 18; TEMP 36.6; O2SAT 100
[2019-08-21 16:34] LABS: Cord Blood PH 7.38 (7.35-7.45)
--- NOTE | 2019-08-21 17:18 | HMH.DN ---
- Delivery Note Delivery Date:: 08/21/19 Delivery Time:: 16:24 Anesthesia Type: Epidural Was labor medically induced?: Yes Induction method: per pitocin protocol Gestational age (weeks): 38 Infant delivered prior to 39 weeks?: Yes Justification for early elective delivery:: Oligohydraminos Gender: Male at 1 minute: 8 at 5 minutes: 9 Delivery Procedure:: She is a [age]-year-old 5 para 4 who is currently 38 weeks gestational age. She has had hypokalemia throughout the . She came in feeling unwell and was found to be hypokalemic. We then did an ultrasound and it was found that her baby was only second centile. As result of that we elected to induce her labor. She was started on IV oxytocin and had her membranes ruptured. She progressed under labor epidural full dilation and delivered spontaneously a liveborn male child at 4:24 PM in the afternoon of August 21, 2019. On deliver the head the anterior shoulder then delivered followed by the rest the 's body atraumatically. The oropharynx and nasopharynx were bulb suction. The baby was vigorous and cried spontaneously. We allowed the cord to continue to pulsate for approximately 1 minute. The cord was then doubly clamped and cut and the infant was placed on the mother's abdomen for further care. The nurses assigned Apgars of 8 at 1 minute and 9 at 5 minutes. We then obtained cord blood as well as cord pH. She received IV oxytocin and using gentle traction on the cord and countertraction on the fundus I was able to easily deliver the placenta intact. He had a normal three-vessel cord. There were no perineal or vaginal lacerations. Estimated blood loss was approximately 200 cc. Placental Delivery Description: Spontaneous
[2019-08-22 08:00] VITALS: BP 109/62; PULSE 72; RESP 16; TEMP 36.6; O2SAT 100
--- NOTE | 2019-08-22 08:26 | HMH.DCSUM ---
General - General Admission date:: 08/19/19 Discharge date: 08/22/19 HPI HPI: Hypokalemia, severe IUGR Hospital Course Hospital Course: She is a 29-year-old 8 now para 5 aborta 3 who was 37 and 5 weeks gestational age. She has had multiple episodes of hypokalemia and admissions. She was found to be hypokalemic with a potassium of 2.8 and was admitted for rehydration and potassium replacement. Ultrasound showed that she had an extremely small for gestational age at the second centile. As result of that we elected to induce her labor. She was started on IV oxytocin had her membranes ruptured and under epidural progressed to full dilation. She delivered spontaneously a liveborn male child at 4:24 PM in the afternoon of August 21, 2019. The baby weighed 6 pounds 3 ounces and had Apgars of 8 at 1 minute and 9 at 5 minutes. She was group B streptococcus positive and she received IV antibiotics while in labor. She will be discharged home later today to follow-up with me in approximately 2 weeks time. She will continue with her vitamins and iron. She was given a prescription for Percocet 5/325 #12 tablets. She is having severe cramps. She was given the usual instructions with respect to limiting her activity, driving and sexual activity. She has O+ blood, she is Camila immune and as I said she was group B streptococcus positive. Her draw tender is Dr. Kohler. Her condition on discharge is stable and improved. Rhogam Administration: Not Indicated Objective Vital signs: Temp Pulse Resp BP Pulse Ox 97.9 F 77 18 99/70 L 100 08/21/19 16:00 08/21/19 16:00 08/21/19 16:00 08/21/19 16:00 08/21/19 16:00 - *Routine HEENT Exam Head: Present: normocephalic Eye: Present: EOMI, PERRL ENT: Present: mucous membranes moist Results Labs on day of discharge: Labs from last 24 hours 08/21/19 16:25 Cord ABG pH 7.38 DS: Diagnosis - Discharge Diagnosis (1) Intrauterine growth restriction (IUGR) affecting care of mother Status: Acute (2) Hypokalemia Status: Acute Discharge Plan - Patient Discharge Instructions ACTIVITY: No heavy lifting DIET: continue same diet - Follow up Plan Disposition: Home, Self-Nursing Home Medications: Home Medications Medication Instructions Recorded Confirmed Type RX: Ferrous Sulfate 325 mg PO DAILY 07/18/19 08/20/19 History RX: Prenat Vit 17/Iron/Folic/Om3,6 1 cap PO DAILY 07/18/19 08/20/19 History [Elite-Ob 400 Capsule] RX: Famotidine [Acid [employer]] 20 mg PO DAILY 08/06/19 08/20/19 History RX: Potassium Chloride [Klor-con 40 meq PO BID 08/06/19 08/20/19 History 20 mEq tablet] ondansetron 4 mg disintegrating 4 mg PO Q6H PRN #30 tab 08/06/19 08/20/19 Rx tablet Prescriptions/Medication Reconciliation: Continued ondansetron 4 mg disintegrating tablet 4 mg PO Q6H PRN #30 tab PRN Reason: nausea and vomiting RX: Prenat Vit 17/Iron/Folic/Om3,6 [Elite-Ob 400 Capsule] 1 cap PO DAILY RX: Ferrous Sulfate 325 mg PO DAILY RX: Potassium Chloride [Klor-con 20 mEq tablet] 40 meq PO BID RX: Famotidine [Acid [employer]] 20 mg PO DAILY - Problem Reconciliation Problems Reviewed?: Yes
[2019-08-22 10:27] LABS: Hematocrit 32.1 % (37.0-47.0); Hemoglobin 10.8 g/dL (12.2-16.2)
== END 2019-08-22 11:20 | disposition home or self-care (01) | DRG 807 ==
LOC: OBOUT 17:53 → OB 17:53
PROVIDERS: Admitting Provider Nurse Practitioner Obstetrics & Gynecology; PCP Nurse Practitioner; Visit Provider Nurse Practitioner Obstetrics & Gynecology
DX: O41.03X0 Oligohydramnios, third trimester, not applicable or unspecified (principal); Z37.0 Single live birth; Z3A.38 38 weeks gestation of pregnancy; E87.6 Hypokalemia
CPT/HCPCS: 59409; 36415; 59025; 76816; 76819; 80048; 81001; 82800; 85014; 85018; 85025; 86328; 86850; 94761; C1758; J0290; J0595; J2405

== ENCOUNTER 2020-10-03 13:20 | Emergency (ER) | payer OTHER, SELFPAY ==
[2020-10-03 13:20] VITALS: BP 132/74; PULSE 74; RESP 16; TEMP 36.6; O2SAT 98; BMI 28.3
--- NOTE | 2020-10-03 13:31 | XR_ITS ---
PROCEDURE INFORMATION: Exam: XR Left Hand Exam date and time: 10/03/2020 1:31 PM Age: 30 years old Clinical indication: Finger(s); Left; Patient HX: Pain in third finger, started as a blister, redness, swollen TECHNIQUE: Imaging protocol: XR Left hand. Views: 3 or more views. COMPARISON: No relevant prior studies available. FINDINGS: Bones/joints: Third finger soft tissue swelling. No soft tissue gas or radiopaque foreign body. No acute fracture or traumatic malalignment. Soft tissues: See Bones/joints finding. IMPRESSION: No acute osseous abnormality. Third finger soft tissue swelling.
--- NOTE | 2020-10-03 14:05 | HMH.EDGENADL ---
ED Disposition Clinical Impression: Cellulitis of hand, left Disposition: Home, Self-Care Condition on Discharge: Good Instructions: Cellulitis Additional Instructions: use meds and see pcp for follow up monday and recheck if needed Prescriptions: Sulfamethoxazole/Trimethoprim [Bactrim DS tablet] 1 each PO BID #20 tab Transmission Status: Pending to [id number] cephALEXin [cephALEXin 500mg capsule*] 500 mg PO TID #30 cap Transmission Status: Pending to [facility] Ketorolac Tromethamine [Toradol 10mg tablet] 10 mg PO Q6HP PRN #10 tab MDD 40mg/day PRN Reason: Moderate To Severe Pain Transmission Status: Pending to [facility] Referrals: Jo Lamb MD [Primary Care Provider] - - Critical Care Critical Care Time: No Attestation: On 10/03/20, the high probability of a clinically significant, sudden or life threatening deterioration of the following system(s) required my full and direct attention, intervention and personal management. The time I documented below is in addition to time spent performing reported procedures but includes the following listed in this critical care notation. Medical Decision Making - Medical Records Medical records reviewed: Yes: I reviewed the patient's medical records. - Maxime Inquiry Pt receiving controlled substance: No Vital Signs: 10/03/20 13:20 Temperature 98 F Temperature Source Oral Pulse Rate [Radial] 74 Respiratory Rate 16 Blood Pressure [Right Arm] 132/74 Blood Pressure Mean [Right Arm] 93 Blood Pressure Position [Right Arm] Sitting 02 Sat by Pulse Oximetry 98 - Lab Data Lab results reviewed: Yes: I reviewed the patient's lab results. Lab Results 10/03/20 13:50: WBC 8.8, RBC 4.38, Hgb 12.5, Hct 39.2, MCV 89.6, MCH 28.5, MCHC 31.9, RDW 13.1, Plt Count 256, MPV 10.4, Neut % (Auto) 72.8, Lymph % (Auto) 18.9, [place] % (Auto) 5.1, Eos % (Auto) 2.6, Baso % (Auto) 0.6, Neut # (Auto) 6.4, Lymph # (Auto) 1.7, [place] # (Auto) 0.5, Eos # (Auto) 0.2, Baso # (Auto) 0.1 10/03/20 13:50: ESR 33 H 10/03/20 13:50: Sodium 142, Potassium 3.3 L, Chloride 105, Carbon Dioxide 23, Anion Gap 17.3 H, BUN 10, Creatinine 0.60, Estimated Creat Clear 159, Estimated GFR 118, Est GFR ( Amer) 143, Glucose 122 H, Calcium 8.8, Total Bilirubin 0.7, AST 22, ALT 17, Alkaline Phosphatase 81, C-Reactive Protein 23.9 H, Total Protein 7.8 D, Albumin 4.3, Globulin 3.5 H, Albumin/Globulin Ratio 1.2, Procalcitonin 0.051 10/03/20 13:50: Lactate 1.9 10/03/20 13:50: Serum HCG, Qual Negative Result diagrams: 10/03/20 13:50 10/03/20 13:50 Orders (Tests/Meds): ED MEDICATIONS Generic Name Dose Route Start Last Admin Trade Name Freq PRN Reason Stop Dose Admin Vancomycin HCl 1,500 mg/ 250 mls @ 125 mls/hr 10/03/20 14:15 10/03/20 14:27 Sodium Chloride IV 10/03/20 16:14 125 mls/hr ONCE ONE Administration Discontinued Medications Generic Name Dose Route Start Last Admin Trade Name Freq PRN Reason Stop Dose Admin Ketorolac Tromethamine 30 mg 10/03/20 14:03 10/03/20 14:27 Ketorolac 30mg/Ml Vial IV 10/03/20 14:04 30 mg ONCE ONE Administration Tetanus/Reduced Diphtheria/Acell Pertussis 0.5 ml 10/03/20 14:04 10/03/20 14:28 Tet/Diphth/Pert-Adult 0.5ml Syringe IM 10/03/20 14:05 0.5 ml .ONCE ONE Administration ORDERS Category Date Time Status Blood Culture Stat Micro 10/03/20 13:50 Received - Radiology Data #1 Image(s): Hand Image Reviewed: Yes I have reviewed radiologist's interpretation Preliminary Findings: No Fracture Seen Medical Decision Narrative: has lt hand infusion with cellulitis - i think sheath prob ok and xray ok and pt wishes to try at this time General Adult HPI - General Chief complaint: PAIN Stated complaint: rash on rt side of body Time Seen by Provider: 10/03/20 13:40 Mode of Arrival: Ambulatory Source of Information: Patient, Medical Record Limitations: No Limitations Description
[2020-10-03 14:26] LABS: Alanine Aminotransferase 17 U/L (12-78); Albumin Level 4.3 g/dl (3.5-5.0); Albumin/Globulin Ratio 1.2 (1.1-1.8); Alkaline Phosphatase 81 U/L (38-126); Anion Gap 17.3 mEq/L (5-15); Aspartate Amino Transferase 22 U/L (14-36); Bilirubin,Total 0.7 mg/dl (0.2-1.3); Blood Urea Nitrogen 10 mg/dl (7-17); Calcium 8.8 mg/dl (8.4-10.2); Carbon Dioxide 23 mmol/L (22.0-30.0); Chloride 105 mmol/L (98-107); Creatinine Clearance Estimated 159 mL/min (50-200); Estimated Glomerular Filt Rate 118 ml/min (>60); GFR (African American) 143 ML/MIN (>60); Globulin 3.5 g/dL (1.3-3.2); Glucose 122 mg/dl (74-100); Potassium 3.3 mmoL/L (3.5-5.1); Sodium 142 mmol/L (136-145); Total Protein,Serum 7.8 g/dl (6.3-8.2)
[2020-10-03 14:27] LABS: Lactic Acid 1.9 mmol/L (0.7-2.1)
[2020-10-03 14:28] LABS: HCG Qualitative, Serum Negative (Negative)
[2020-10-03 14:32] LABS: C-Reactive Protein 23.9 mg/L (0-4)
[2020-10-03 14:45] LABS: Procalcitonin 0.051 ng/mL (0.0-2.0)
[2020-10-03 15:00] VITALS: BP 102/76; PULSE 72; RESP 18; O2SAT 100
[2020-10-03 15:05] LABS: Erythrocyte Sedimentation Rate 33 mm/hr (0-20)
[2020-10-03 15:09] LABS: Basophils # 0.1 K/mm3 (0-0.2); Basophils % 0.6 % (0.1-2.0); Eosinophils # 0.2 K/mm3 (0.0-0.4); Eosinophils % 2.6 % (0.1-12.0); Hematocrit 39.2 % (37.0-47.0); Hemoglobin 12.5 g/dL (12.2-16.2); Lymphocytes # 1.7 K/mm3 (0.7-4.5); Lymphocytes % 18.9 % (10-50); Mean Corpuscular HGB Conc 31.9 g/dL (31.8-35.4); Mean Corpuscular Hemoglobin 28.5 pg (27.0-31.2); Mean Corpuscular Volume 89.6 fl (81-99); Mean Platelet Volume 10.4 fl (7.4-10.4); Monocytes # 0.5 K/mm3 (0.1-1.0); Monocytes % 5.1 % (1.7-9.3); Neutrophils # 6.4 K/mm3 (1.8-7.8); Neutrophils % 72.8 % (37.0-80.0); Platelet Count 256 K/mm3 (142-424); Red Blood Count 4.38 M/mm3 (4.20-5.40); Red Cell Distribution Width 13.1 % (11.5-17.5); White Blood Count 8.8 K/mm3 (4.8-10.8)
[2020-10-03 15:30] VITALS: BP 113/77; PULSE 66; RESP 18; O2SAT 99
--- NOTE | 2020-10-03 16:00 | PC.NURSE ---
PT STATES PAIN, SWELLING AND REDNESS GETTING WORSE. AWARE
[2020-10-03 17:56] VITALS: BP 107/58; PULSE 78; RESP 16; TEMP 36.6; O2SAT 98
== END 2020-10-03 17:59 | disposition home or self-care (01) ==
PROVIDERS: Emergency Provider Emergency Medicine; PCP Nurse Practitioner
DX: L03.114 Cellulitis of left upper limb (principal); K21.9 Gastro-esophageal reflux disease without esophagitis
CPT/HCPCS: 73130; 80053; 83605; 84145; 84703; 85025; 85651; 86140; 87040; 90715; 96365; 96372; 99282; J3370

== ENCOUNTER → 2021-01-17 12:32 | Outpatient (CLI) | payer OTHER, SELFPAY | PROVIDERS: Visit Provider Nurse Practitioner Family | DX: Z20.822 Contact with and (suspected) exposure to COVID-19 (principal) | CPT/HCPCS: C9803; U0003; U0005 ==

== ENCOUNTER 2021-03-08 19:12 | Emergency (ER) | payer OTHER, SELFPAY ==
[2021-03-08 20:10] VITALS: BP 111/72; PULSE 77; RESP 18; TEMP 37.6; O2SAT 98; BMI 29.8
--- NOTE | 2021-03-08 20:40 | HMH.EDUTC ---
[facility] [place] Clinical Impression: URI (upper respiratory infection) Qualifiers: URI type: unspecified URI Qualified Code(s): J06.9 - Acute upper respiratory infection, unspecified Disposition: Home, Self-Care Condition on Discharge: Good Instructions: Sore Throat, Sinusitis, DI for Sinusitis Additional Instructions: *Monitor Temp, Over the counter Motrin or Tylenol as directed/as needed Tylenol every 4 hours and Motrin every 6 hours (as long as your family doctor has told you that you can take it) for fever or pain. and straight to ER if unable to lower temp less than 101.0 after medication given *Warm salt water gargles may help to soothe the throat *Throat Lozenges *Warm fluids like tea with honey may help to soothe the throat *Sleep elevated *Humidifier/Vaporizer *Flonase 2 sprays in each nostril daily but be aware that it may take 2-3 days before you notice improvement Your throat swab was sent for culture. Those results are typically sent to your primary care. Be sure to follow up in 2-3 days with your family doctor/primary care physician if no improvement so they can review those result and treat if necessary. If you don?t have a primary care doctor, I recommend you get one but in the mean time, you will have to return to a walk in clinic Follow up IMMEDIATELY for new or worsening symptoms or no Noticeable improvement over the next 48-72 hours. 911 for difficulty breathing or swallowing You were tested for today for COVID19 your test result should be back in the next 24-72 hours, you may check your results on the [facility] My Health Portal If you have trouble logging on you may call support If you are positive someone from the Hospital will be calling you Make sure to take your Vitamins Vit. C Vit D and Zinc if you can take them Prescriptions: methylPREDNISolone [Medrol 4mg tab] 4 mg PO DIRECTED #21 tab Transmission Status: Received by [facility] Azithromycin [Z-Dawit 250mg Tab] 250 mg PO DIRECTED #6 tab Transmission Status: Received by [facility] Referrals: Jo Lamb MD [Primary Care Provider] - As needed Forms: Work/School Release Time of Disposition: 21:31 Medical Decision Making - Maxime Inquiry Pt receiving controlled substance: No Maxime was queried for this patient: No Vital Signs: 03/08/21 20:10 03/08/21 21:18 Temperature 99.7 F H 99.7 F H Temperature Source Oral Pulse Rate 77 Pulse Rate [Right Brachial] 77 Respiratory Rate 18 18 Blood Pressure 111/72 Blood Pressure [Right Arm] 111/72 Blood Pressure Mean [Right Arm] 85 Blood Pressure Source [Right Arm] Automatic Cuff Blood Pressure Position [Right Arm] Sitting 02 Sat by Pulse Oximetry 98 Oxygen Delivery Method Room Air - Lab Data Lab Results 03/08/21 20:18: Influenza Type A Ag Negative, Influenza Type B Ag Negative Orders (Tests/Meds): ORDERS Category Date Time Status Covid-19 Nasal PCR ([facility]) Routine Lab 03/08/21 20:20 Received Rapid Strep Scrn Group A [Strep Scrn Group A (Rapid)] Lab 03/08/21 20:20 Received Stat Medical Decision Narrative: Called lab to see if strep test was complete advised 7-10 min Patient denies states last period 02/22/21 [facility] [place] - General Stated complaint: covid/flu test/treated for symptoms Time Seen by Provider: 03/08/21 20:40 Mode of Arrival: Ambulatory Source of Information: Patient Limitations: No Limitations Description of Symptoms (Recalled from Triage Doc. by RN): PATIENT C/O COUGH, FEVER, CHILLS, HEADACHE, BODY ACHES, SOA, AND SORE THROAT SINCE THIS MORNING HEENT Symptoms (Recalled from RN notes): Yes Resp Symptoms (Recalled from RN notes): Yes Skin Symptoms (Recalled from RN notes): No MS Symptoms (Recalled from RN notes): No Functional Status (Recalled from RN notes): WNL - History of Present Illness Provider Complaint: Patient states that she has been having sinus pain and pressure States that this morning she woke
[2021-03-08 21:18] VITALS: BP 111/72; PULSE 77; RESP 18; TEMP 37.6; O2SAT 98
[2021-03-08 21:24] LABS: UTC Influenza A Antigen Negative (Negative); UTC Influenza B Antigen Negative (Negative)
[2021-03-08 21:39] LABS: Strep Scrn Group A (Rapid) Negative (Negative)
== END 2021-03-08 21:46 | disposition home or self-care (01) ==
PROVIDERS: Emergency Provider Nurse Practitioner; PCP Nurse Practitioner
DX: U07.1 COVID-19 (principal); J06.9 Acute upper respiratory infection, unspecified; K21.9 Gastro-esophageal reflux disease without esophagitis
CPT/HCPCS: 87430; 87804; 99203; C9803; G0463; U0003; U0005

== ENCOUNTER 2021-06-19 17:11 | Emergency (ER) | payer OTHER, SELFPAY ==
[2021-06-19 17:14] VITALS: BP 115/81; PULSE 81; RESP 20; TEMP 37; O2SAT 100; BMI 28.3
--- NOTE | 2021-06-19 17:24 | XR_ITS ---
PROCEDURE INFORMATION: Exam: XR Left Foot Exam date and time: 06/19/2021 5:27 PM Age: 31 years old Clinical indication: Injury or trauma; Fall; Blunt trauma; Heel and foot; Left; Patient HX: Patient fell from a 5 ft latter; Additional info: Trauma/pain TECHNIQUE: Imaging protocol: XR Left foot. Views: 3 or more views. COMPARISON: No relevant prior studies available. FINDINGS: Bones/joints: There is mild widening to the interdigital space between the 4th and 5th metatarsals. This is best seen on the AP view. There is no evidence of acutely displaced fractures. No aggressive osseous lesions. There is no evidence of joint dislocation. Soft tissues: Question of mild soft tissue swelling at the lateral aspect of the foot. IMPRESSION: 1. Mild widening to the interdigital space between the 4th and 5th metatarsals, could be anatomical or related to underlying soft tissue injury. Consider correlation with point tenderness. 2. Question of soft tissue swelling at the lateral aspect of the foot. 3. No acutely displaced fractures.
--- NOTE | 2021-06-19 17:24 | XR_ITS ---
PROCEDURE INFORMATION: Exam: XR Right Foot Exam date and time: 06/19/2021 5:27 PM Age: 31 years old Clinical indication: Injury or trauma; Fall; Blunt trauma; Lower leg and foot; Bilateral; Injury date: 06/19/21; Injury details: Trauma fell off a ladder from 5-6 feet up and landed on feet -- pain in tib/fib and feet; Additional info: Trauma/pain TECHNIQUE: Imaging protocol: XR Right foot. Views: 3 or more views. COMPARISON: No relevant prior studies available. FINDINGS: Bones/joints: Osseous anatomic alignment is well preserved. No acutely displaced fracture or dislocation. Joint spaces are well preserved. Soft tissues: No significant soft tissue swelling. IMPRESSION: No acute findings.
--- NOTE | 2021-06-19 17:24 | XR_ITS ---
PROCEDURE INFORMATION: Exam: XR Right Tibia and Fibula Exam date and time: 06/19/2021 5:27 PM Age: 31 years old Clinical indication: Pain and injury or trauma; Fall; Blunt trauma and sprain or strain; Heel and foot; Right; Foot and heel; Patient HX: Patient fell from a 5ft latter; Additional info: Trauma/pain TECHNIQUE: Imaging protocol: XR Right tibia and fibula. Views: 2 views. COMPARISON: No relevant prior studies available. FINDINGS: Bones/joints: Osseous anatomic alignment is well preserved. No acutely displaced fracture or dislocation. Joint spaces are well preserved. Soft tissues: No significant soft tissue swelling. IMPRESSION: No acute findings.
--- NOTE | 2021-06-19 17:24 | XR_ITS ---
PROCEDURE INFORMATION: Exam: XR Left Tibia and Fibula Exam date and time: 06/19/2021 5:27 PM Age: 31 years old Clinical indication: Injury or trauma; Fall; Sprain or strain; Lower leg; Left; Patient HX: Patient feel from a 5 ft latter; Additional info: Trauma/pain TECHNIQUE: Imaging protocol: XR Left tibia and fibula. Views: 2 views. COMPARISON: No relevant prior studies available. FINDINGS: Bones/joints: Osseous anatomic alignment is well preserved. No acutely displaced fracture or dislocation. Joint spaces are well preserved. Soft tissues: No significant soft tissue swelling. IMPRESSION: No acute findings.
--- NOTE | 2021-06-19 18:55 | HMH.EDGENADL ---
ED Disposition Clinical Impression: Sprain of left foot Qualifiers: Encounter type: initial encounter Qualified Code(s): S93.602A - Unspecified sprain of left foot, initial encounter Right foot sprain Qualifiers: Encounter type: initial encounter Qualified Code(s): S93.601A - Unspecified sprain of right foot, initial encounter Disposition: Home, Self-Care Condition on Discharge: Good Instructions: DI for Foot Sprain Additional Instructions: follow up podiatry next week, return for worse Prescriptions: Hydrocodone/Acetaminophen [Hydrocodone-Acetamin 5-325 mg] 1 tab PO TID PRN #10 tab PRN Reason: Moderate To Severe Pain Transmission Status: Received by [facility] To [id number] Referrals: Liliana Layton APRN [Primary Care Provider] - - Critical Care Critical Care Time: No Attestation: On 06/19/21, the high probability of a clinically significant, sudden or life threatening deterioration of the following system(s) required my full and direct attention, intervention and personal management. The time I documented below is in addition to time spent performing reported procedures but includes the following listed in this critical care notation. Medical Decision Making - Medical Records Medical records reviewed: Yes: I reviewed the patient's medical records. - Maxime Inquiry Pt receiving controlled substance: No Vital Signs: 06/19/21 17:14 06/19/21 19:17 Temperature 98.6 F 98.2 F Temperature Source Oral Oral Pulse Rate 79 Pulse Rate [Left Radial] 81 Respiratory Rate 20 18 Blood Pressure 115/80 Blood Pressure [Right Arm] 115/81 Blood Pressure Mean [Right Arm] 92 Blood Pressure Source Automatic Cuff Blood Pressure Source [Right Arm] Automatic Cuff Blood Pressure Position Sitting Blood Pressure Position [Right Arm] Sitting 02 Sat by Pulse Oximetry 100 Oxygen Delivery Method Room Air Room Air Orders (Tests/Meds): ED MEDICATIONS Discontinued Medications Generic Name Dose Route Start Last Admin Trade Name Freq PRN Reason Stop Dose Admin Hydrocodone Bitart/Acetaminophen 1 tab 06/19/21 17:48 06/19/21 17:50 Apap/Hydrocodone 325mg/7.5mg Tab PO 06/19/21 17:49 1 tab ONCE ONE Administration Oxycodone/Acetaminophen 1 each 06/19/21 17:44 06/19/21 17:49 Oxycodone 7.5mg W/Apap 325mg Tablet PO 06/19/21 17:45 Not Given ONCE ONE Medical Decision Narrative: reeval discussed xrays, agreed to plan to f/u podiatry non wt bear for poss occult fx General Adult HPI - General Chief complaint: PAIN Stated complaint: AO 06/19@1400 fell off ladder Time Seen by Provider: 06/19/21 17:15 Mode of Arrival: Wheelchair Limitations: No Limitations Description of Symptoms (Recalled from ER Triage Doc. by RN): c/o bilateral legs/ankle and knee pain after falling off a ladder 4-6 ft and landing on her feet approx 3 hours ago. Denies any other injuries. - History of Present Illness Onset (ago): hour(s) Location: lower extremity Radiation: extremity Severity: moderate Quality: sharp, dull, constant Consistency: constant Relieving factors: immobilization Exacerbating factors: movement Associated symptoms: denies other symptoms - Related Data Previous Rx's Medication Instructions Recorded Azithromycin [Z-Dawit 250mg Tab] 250 mg PO DIRECTED #6 tab 03/08/21 methylPREDNISolone [Medrol 4mg 4 mg PO DIRECTED #21 tab 03/08/21 tab] Hydrocodone/Acetaminophen 1 tab PO TID PRN #10 tab 06/19/21 [Hydrocodone-Acetamin 5-325 mg] Allergies Allergy/AdvReac Type Severity Reaction Status Date / Time No Known Allergies Allergy Verified 08/19/19 13:[address] [facility] History - Hepatitis A Screen Attestation statement:: This patient has been screened for Hepatitis A risk factors. Medical History: Reports:: Gastroesophageal Reflux Disease(GERD) Denies:: Cancer, Diabetes Mellitus Type 1, Diabetes Mellitus Type 2, MRSA, Seizures Other Medical History: Denies: Blood Transfusion Reaction
[2021-06-19 19:17] VITALS: BP 115/80; PULSE 79; RESP 18; TEMP 36.8; O2SAT 98
== END 2021-06-19 19:18 | disposition home or self-care (01) ==
PROVIDERS: Emergency Provider Emergency Medicine; PCP Nurse Practitioner Family
DX: S93.602A Unspecified sprain of left foot, initial encounter (principal); S93.601A Unspecified sprain of right foot, initial encounter; W11.XXXA Fall on and from ladder, initial encounter; Y92.019 Unspecified place in single-family (private) house as the place of occurrence of the external cause; K21.9 Gastro-esophageal reflux disease without esophagitis
CPT/HCPCS: 73590; 73630; 99283

== ENCOUNTER → 2021-06-29 10:56 | Outpatient (CLI) | payer OTHER, SELFPAY ==
--- NOTE | 2021-06-29 11:00 | XR_ITS ---
FINAL REPORT CLINICAL HISTORY: left foot injury COMPARISON: 06/19/2020 FINDINGS: LEFT FOOT Three views were obtained. There is no acute fracture or dislocation. The joint spaces appear normal. No soft tissue abnormality is identified. IMPRESSION: No acute process. Reviewed, Interpreted and Dictated by Jolene Castellon MD Transcribed by Klarissa Galindo Authenticated by Jolene Castellon MD on 06/29/2021 01:18:36 PM [facility]
== END ==
PROVIDERS: PCP Nurse Practitioner Family; Visit Provider Podiatrist
DX: S93.622A Sprain of tarsometatarsal ligament of left foot, initial encounter (principal); S93.492A Sprain of other ligament of left ankle, initial encounter; S86.312A Strain of muscle(s) and tendon(s) of peroneal muscle group at lower leg level, left leg, initial encounter; S93.325A Dislocation of tarsometatarsal joint of left foot, initial encounter; S99.922A Unspecified injury of left foot, initial encounter
CPT/HCPCS: 73630

== ENCOUNTER 2022-04-19 19:35 | Emergency (ER) | payer OTHER, SELFPAY ==
[2022-04-19 19:37] VITALS: BP 124/83; PULSE 96; RESP 18; TEMP 37.3; O2SAT 96; BMI 25.6
--- NOTE | 2022-04-19 19:45 | XR_ITS ---
PROCEDURE INFORMATION: Exam: XR Chest Exam date and time: 04/19/2022 7:57 PM Age: 32 years old Clinical indication: Cough and fever; Additional info: Cough, congestion, fever TECHNIQUE: Imaging protocol: Radiologic exam of the chest. Views: 2 views. COMPARISON: CR [id number] XR ribs LT min 3V w [id number] 02/08/2018 5:37 PM FINDINGS: Lungs: Unremarkable. No consolidation. Pleural spaces: Unremarkable. No pleural effusion. No pneumothorax. Heart/Mediastinum: Unremarkable. No cardiomegaly. Bones/joints: Unremarkable. IMPRESSION: No acute findings.
[2022-04-19 19:54] LABS: Coronavirus 19, PCR Not Detected (NotDetected); Influenza A, PCR Not Detected (NotDetected); Influenza B, PCR Not Detected (NotDetected)
[2022-04-19 20:00] VITALS: BP 114/82; PULSE 82; O2SAT 98
--- NOTE | 2022-04-19 20:06 | HMH.EDGENADL ---
Discharge Plan Disposition Patient Disposition: Home, Self-Care Condition: Good Prescriptions Prescriptions: No Action No Known Home Medications Referrals Follow up/Referrals: Kelly Major PA [Primary Care Provider] - See instructions Clinical Impressions Clinical Impression: URI (upper respiratory infection) Instructions Patient Instructions: DI for Viral Upper Respiratory Infection -- Adult Discharge ED Provider: Stefan Samaniego General Adult HPI General Chief complaint: Upper Respiratory Infection Stated complaint: congestion cough dizzy Time Seen by Provider: 04/19/22 20:06 Mode of Arrival: Ambulatory Source of Information: Patient Limitations: No Limitations Description of Symptoms (Recalled from ER Triage Doc. by RN): 32 F presents with cough, nasal drainage, low grade fever for 3 days. She has tried different OTC medications without relief. History of Present Illness HPI narrative: Patient is a 32 yo female who presents with the chief complaint of cough. She says that for the last 3 days she has had worsening low-grade fever as well as nasal drainage. She states that she is also had a very persistent cough that been getting progressively worse. She denies any smoking history or history of asthma. She has been trying [id number] medications without much success. She says that she does have a history of recurrent bronchitis. Denies any nausea or vomiting. Related Data Home Medications Medication Instructions Recorded Confirmed No Known Home Medications 04/19/22 04/19/22 Allergies Allergy/AdvReac Type Severity Reaction Status Date / Time bismuth subsalicylate Allergy Mild Rash, Verified 06/29/21 10:07 [From Kaopectate (bismuth trouble subsalicy)] breathing [facility] Disclaimer: The information contained in this section may have been updated after the patient was seen, as this information can be updated by other users. Social History Smoking Status: Never smoker alcohol intake: never substance use type: denies use current occupational status: unemployed Travel in the last 8 weeks: Inside the [place] household members: spouse housing: house current occupation: [employer] ROS Obtained: Yes All systems reviewed & no additional complaints except as documented Physical Exam General General appearance: alert and in no apparent distress Head Head exam: atraumatic, normocephalic and normal inspection Eye Eye exam: Present normal appearance and PERRL ENT ENT exam: Present normal exam, mucous membranes moist and normal external ear exam Neck Neck exam: Present normal inspection and trachea midline Chest Chest inspection: Present normal inspection and symmetric chest wall rise Respiratory Respiratory exam: Present normal lung sounds bilaterally; Absent respiratory distress Cardiovascular Cardiovascular exam: Present regular rate and normal rhythm Abdominal Exam Abdominal exam: Present soft; Absent distention, tenderness or guarding Extremities Exam Extremities exam: Present normal inspection; Absent edema Neurological Exam Neurological exam: Present alert and oriented X3 Psychiatric Psychiatric exam: Present normal affect and normal mood Skin Skin exam: Present warm, dry, intact and normal color Medical Decision Making Medical Records Medical records reviewed: Yes I reviewed the patient's medical records. Maxime Inquiry Pt receiving controlled substance: Yes Maxime was queried for this patient: No Risks and benefits of using a controlled substance: were discussed with pt by me Vital Signs: 04/19/22 19:37 04/19/22 20:00 04/19/22 20:30 Temperature 99.2 F Temperature Source Oral Pulse Rate 82 78 Pulse Rate [Left] 96 H Respiratory Rate 18 Blood Pressure 114/82 116/87 Blood Pressure [Right Arm] 124/83 Blood Pressure Mean [Right Arm] 96 Blood Pressure Source [Right Arm] Automatic Cuff Blood Pressure Position
[2022-04-19 20:16] LABS: Strep Scrn Group A (Rapid) Negative (Negative)
[2022-04-19 20:30] VITALS: BP 116/87; PULSE 78; O2SAT 97
[2022-04-19 20:33] VITALS: BP 116/87; PULSE 77; RESP 15; TEMP 37.3; O2SAT 99
== END 2022-04-19 20:50 | disposition home or self-care (01) ==
PROVIDERS: Emergency Provider Student in an Organized Health Care Education/Training Program; PCP Student in an Organized Health Care Education/Training Program
DX: J06.9 Acute upper respiratory infection, unspecified (principal); Z20.822 Contact with and (suspected) exposure to COVID-19
CPT/HCPCS: 71046; 87430; 99284; C9803; U0003; U0005

== ENCOUNTER 2022-05-05 14:15 | Emergency (ER) | payer OTHER, SELFPAY ==
--- NOTE | 2022-05-05 14:31 | XR_ITS ---
FINAL REPORT CLINICAL HISTORY: fell off ladder [employer], pain on inspiration. Flank Pain COMPARISON: None FINDINGS: A PA view of the chest and oblique views of the right ribs were obtained. There is no prior exam for comparison. The cardiac and mediastinal silhouettes are within normal limits. The lungs are clear. There is no pneumothorax. Oblique views of the right ribs reveal no displaced rib fracture. IMPRESSION: No displaced right rib fracture or pneumothorax identified. Reviewed, Interpreted and Dictated by Jolene Castellon MD Transcribed by Alison Marin Authenticated and [facility]
--- NOTE | 2022-05-05 14:31 | XR_ITS ---
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 There is no prior exam for comparison. There is mild compression deformity of several upper thoracic vertebral bodies of indeterminate age. There is mild dextroscoliosis. The paraspinal soft tissues are normal. IMPRESSION: Mild compression deformities several upper thoracic vertebral bodies of indeterminate age. Consider MRI for further evaluation. Reviewed, Interpreted and Dictated by Jolene Castellon MD Transcribed by Alison Marin Authenticated and [facility]
[2022-05-05 15:07] VITALS: BP 115/74; PULSE 78; RESP 17; TEMP 37; O2SAT 100; BMI 37.3
--- NOTE | 2022-05-05 15:21 | EXP.UTC ---
Discharge Plan Disposition Patient Disposition: Still a Patient Condition: Fair Prescriptions Prescriptions: No Action No Known Home Medications Referrals Follow up/Referrals: Kelly Nicholas APRN [Primary Care Provider] - See instructions Clinical Impressions Clinical Impression: Rib pain on right side, Fall, Shortness of breath Discharge ED Provider: Shanel Mcrgath [facility] [place] HPI General Stated complaint: AO@home 05/05 RT rib pain Time Seen by Provider: 05/05/22 15:21 Description of Symptoms (Recalled from Triage Doc. by RN): pt fell off ladder onto right side and heard a pop. now with pain in rib area. pt states fall was approx. 8-9 feet HEENT Symptoms (Recalled from RN notes): No Resp Symptoms (Recalled from RN notes): No Skin Symptoms (Recalled from RN notes): No MS Symptoms (Recalled from RN notes): Yes Functional Status (Recalled from RN notes): n/a History of Present Illness Provider Complaint: She states that just prior to arrival here she fell off a ladder and came down on her right side. She fell approx 8 to 9 feet. When she landed, her right arm was over her head, so she came down directly on her right ribs. She has had right rib pain and thoracic back pain since the fall. She states that immediately afterwards she became nauseated and vomited. She c/o pain with breathing and shortness of breath at this time. She denies any neck pain or head pain. Related Data Home Medications Medication Instructions Recorded Confirmed No Known Home Medications 04/19/22 04/19/22 Allergies Allergy/AdvReac Type Severity Reaction Status Date / Time bismuth subsalicylate Allergy Mild Rash, Verified 05/05/22 15:13 [From Kaopectate (bismuth trouble subsalicy)] breathing Worker's Comp Is this a Worker's Comp case?: No [facility] Disclaimer: The information contained in this section may have been updated after the patient was seen, as this information can be updated by other users. 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 Obtained: Yes All systems reviewed & no additional complaints except as documented Constitutional Constitutional: Denies chills and Denies fever(s) Eyes Eyes: Denies eye discharge ENT Ears, Nose, Mouth, and Throat: Denies dizziness, Denies otalgia and Denies sore throat Cardiovascular Cardiovascular: Reports as per HPI and Denies chest pain Respiratory Respiratory: Reports shortness of breath, Denies chest congestion, Denies cough, Denies stridor and Denies wheezing Gastrointestinal Gastrointestingal: Denies nausea or vomiting Musculoskeletal Musculoskeletal: Reports system reviewed and no additional complaints, except as documented and Denies arthralgias Integumentary/Breasts Skin/Breast: Denies rash Neurologic Neurologic: Denies dizziness and Denies paresthesias Allergic/Immunologic Allergic/Immunologic: Denies wheezing Physical Exam General General appearance: alert and in no apparent distress Head Head exam: atraumatic, normocephalic and normal inspection Eye Eye exam: Present normal appearance, PERRL and EOMI ENT ENT exam: Present normal exam, normal oropharynx, mucous membranes moist, TM's normal bilaterally and normal external ear exam Neck Neck exam: Present normal inspection, full ROM and trachea midline; Absent meningismus or lymphadenopathy Chest Chest inspection: Present symmetric chest wall rise and tenderness Respiratory Respiratory exam: Present normal lung sounds bilaterally; Absent respiratory distress Cardiovascular Cardiovascular exam: Present regular rate and normal rhythm; Absent JVD Abdominal Exam Abdominal exam: Present soft and normal bowel sounds; Absent distention, t
[2022-05-05 16:26] VITALS: BP 116/83; PULSE 78; RESP 16; TEMP 36.6; O2SAT 100; BMI 26.5
[2022-05-05 16:30] VITALS: BP 118/83; PULSE 78; O2SAT 100
[2022-05-05 17:00] VITALS: BP 122/77; PULSE 86; RESP 20; O2SAT 100
--- NOTE | 2022-05-05 17:14 | CT_ITS ---
PROCEDURE INFORMATION: Exam: CT Chest Without Contrast; Diagnostic Exam date and time: 05/05/2022 5:39 PM Age: 32 years old Clinical indication: Chest wall pain and right-sided; Additional info: Fall, right lateral chest wall pain TECHNIQUE: Imaging protocol: Diagnostic computed tomography of the chest without contrast. 3D rendering (Not supervised by radiologist): MIP and/or 3D reconstructed images were created by the technologist. Radiation optimization: All CT scans at this facility use at least one of these dose optimization techniques: automated exposure control; mA and/or kV adjustment per patient size (includes targeted exams where dose is matched to clinical indication); or iterative reconstruction. REPORTING DATA: Count of CT and Cardiac NM exams in prior 12 months: This patient has received 0 known CTs and 0 known cardiac nuclear medicine studies in the 12 months prior to the current study. COMPARISON: CR XR CHEST 2V 04/19/2022 7:57 PM FINDINGS: Lungs: No acute pulmonary findings. No pulmonary consolidation. Lung volumes within normal limits. 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 There are calcified granulomas in the left lung. There is minimal subsegmental atelectasis in the posterior lower lungs. Pleural spaces: Unremarkable. No significant pleural effusion. No pneumothorax. Heart: The heart is not enlarged. Trace pericardial effusion. No definite coronary artery calcification is visualized. Lymph nodes: Multiple small calcified mediastinal and hilar lymph nodes greater on the left. Vasculature: Unremarkable. No aortic aneurysm. Spleen: Calcified splenic granulomas. Bones/joints: Ribs appear intact, with no acute fracture or lytic lesions. 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 There are spinal degenerative changes, with multiple mild chronic appearing anterior wedge compression deformities, involving T1, and T7 through T12 vertebral bodies. There are also some chronic appearing upper endplate depressions at T3 and T5. Multiple Schmorl's nodes. Multilevel degenerative disc disease and spondylosis. Vacuum phenomenon in several discs. The intraspinal contents are poorly delineated on CT and could be further evaluated with MRI if there is clinical suspicion of disc herniation. There is no significant bony central spinal stenosis or bony foraminal stenosis. Mild thoracic dextroscoliosis. Soft tissues: There are no soft tissue masses or fluid collections. IMPRESSION: 1. There is no evidence of acute fracture. The right ribs appear intact. 3. There are multiple mild anterior wedge compression deformities scattered throughout the thoracic spine as detailed above, with multilevel disc disease, spondylosis, and Schmorl's nodes. No high-grade spinal or foraminal stenoses as visualized. 4. No acute cardiopulmonary findings. No pulmonary consolidation, pleural effusion or pneumothorax. 5. Chronic granulomatous changes. 6. Additional nonemergency and chronic findings as above.
--- NOTE | 2022-05-05 17:21 | PC.NURSE ---
Pt updated on plan of care. Additional warm blankets provided.
--- NOTE | 2022-05-05 18:05 | PC.NURSE ---
Pt reports continued pain. MD notified.
[2022-05-05 18:40] VITALS: BP 96/68; PULSE 72; RESP 16; TEMP 36.5; O2SAT 98
== END 2022-05-05 18:42 | disposition still patient (30) ==
LOC: UTC 14:19 → ER 16:17
PROVIDERS: Emergency Provider Student in an Organized Health Care Education/Training Program; PCP Nurse Practitioner Family
DX: R07.81 Pleurodynia (principal); R06.02 Shortness of breath; W11.XXXA Fall on and from ladder, initial encounter
CPT/HCPCS: 71101; 71250; 72070; 99285

== ENCOUNTER → 2022-08-15 14:31 | Outpatient (CLI) | payer OTHER, SELFPAY ==
[2022-08-15 21:46] LABS: HCG,Quantitative 172 mIU/ml (0-5.42)
== END ==
PROVIDERS: PCP Nurse Practitioner Family; Visit Provider Obstetrics & Gynecology
DX: Z34.91 Encounter for supervision of normal pregnancy, unspecified, first trimester (principal)
CPT/HCPCS: 36415; 84702

== ENCOUNTER → 2022-08-17 11:28 | Outpatient (CLI) | payer OTHER, SELFPAY ==
[2022-08-17 12:42] LABS: HCG,Quantitative 269 mIU/ml (0-5.42)
[2022-08-18 13:53] LABS: Progesterone 5.2 ng/mL (.)
== END ==
PROVIDERS: PCP Nurse Practitioner Family; Visit Provider Obstetrics & Gynecology
DX: Z32.01 Encounter for pregnancy test, result positive (principal)
CPT/HCPCS: 36415; 84144; 84702

== ENCOUNTER → 2022-08-19 14:25 | Outpatient (CLI) | payer OTHER, SELFPAY ==
[2022-08-19 16:49] LABS: HCG,Quantitative 319 mIU/ml (0-5.42)
== END ==
PROVIDERS: PCP Nurse Practitioner Family; Visit Provider Obstetrics & Gynecology
DX: Z34.91 Encounter for supervision of normal pregnancy, unspecified, first trimester (principal)
CPT/HCPCS: 36415; 84702

== ENCOUNTER 2022-08-20 18:16 | Emergency (ER) | payer OTHER, SELFPAY ==
[2022-08-20 18:19] VITALS: BP 130/82; PULSE 98; RESP 16; TEMP 36.9; O2SAT 100; BMI 26.5
--- NOTE | 2022-08-20 18:39 | US_ITS ---
PROCEDURE INFORMATION: Exam: US First Trimester, Transabdominal and US Duplex Artery and Vein, Ovaries, Complete. Duplex exam was performed to evaluate for torsion and other vascular conditions. Exam date and time: 08/20/2022 6:55 PM Age: 32 years old Clinical indication: Other: Left pelvic pain; Gestational age or lmp: 5 weeks 6 days; ; Prior surgery; Surgery date: 6+ months; Surgery type: ectopic; Additional info: Left adnexal pain, +hcg, h/o ectopic. 351 beta hcg TECHNIQUE: Imaging protocol: Real-time transabdominal obstetrical ultrasound of the maternal pelvis and a first trimester , less than 14 weeks 0 days, with image documentation. Real-time duplex ultrasound scan of the arterial and venous flow of the ovaries with B-mode, color Doppler flow and spectral waveform analysis, complete duplex. Duplex exam was performed to evaluate for torsion and other vascular conditions. Total images: 556 COMPARISON: US OB FOLLOW UP 08/19/2019 2:47 PM FINDINGS: MATERNAL: Uterus: Anteverted uterus is normal in size, contour and echotexture. No uterine mass. Endometrial thickness 12.6 mm. Caesarean section scar anterior lower uterine segment. Cervix: Incidental cervical nabothian cysts. Right ovary/adnexa: Normal right ovary measuring 3.1 x 1.2 x 2.2 cm with volume of 4.1 cc. Left ovary/adnexa: Normal left ovary measuring 2.9 x 1.4 x 1.7 cm with volume of 3.4 cc. Intraperitoneal space: No free pelvic fluid. No adnexal mass. Vasculature: Normal color and spectral Doppler flow is present to both ovaries. IMPRESSION: 1. Normal transvaginal pelvic ultrasound. 2. Given history of positive , differential would include: Intrauterine gestation of less than 5 weeks, nonvisualized ectopic, and spontaneous . Please correlate with serial beta HCG values and repeat pelvic ultrasound.
--- NOTE | 2022-08-20 18:41 | HMH.EDGENADL ---
Discharge Plan Disposition Patient Disposition: Home, Self-Care Prescriptions Prescriptions: New promethazine 25 mg tablet 25 mg PO TID PRN (Reason: nausea and vomiting) 5 Days Qty: 20 0RF ondansetron 4 mg tablet,disintegrating 4 mg PO Q6H PRN (Reason: nausea and vomiting) 5 Days Qty: 20 0RF No Action ibuprofen 800 mg tablet 800 mg PO TID PRN (Reason: pain) 7 Days Qty: 20 0RF cyclobenzaprine 5 mg tablet 5 mg PO TID PRN (Reason: muscle spasm) 5 Days Qty: 15 0RF Referrals Follow up/Referrals: Kelly Nicholas APRN [Primary Care Provider] - See instructions Activity Restrictions/Add. Instructions Additional Instructions/Restrictions: There was no definitive intrauterine that was noted on your transabdominal or your transvaginal ultrasound. Your quantitative hCG was 351 today. There is no evidence of any free fluid in your abdomen to suggest rupture. As we discussed we cannot definitively rule out an ectopic as we did not definitively rule in an intrauterine . It is imperative that you closely follow-up with your [facility] doctor to have a repeat hCGs in 48 hours and possibly repeat ultrasound. Please return with any worsening abdominal pain vaginal bleeding or other concerns. With the nausea vomiting and diarrhea is most likely viral gastroenteritis that caused her symptoms and associated abdominal crampiness with that. However there remains diagnostic uncertainty and please return to the emergency department with any significant worsening of your symptoms. Clinical Impressions Clinical Impression: , location unknown, Nausea vomiting and diarrhea Instructions Patient Instructions: DI for Acute Abdominal Pain Discharge ED Provider: Shanel Mcgrath General Adult HPI General Chief complaint: Abdominal Pain Stated complaint: severe pain on LT side, 5 weeks Time Seen by Provider: 08/20/22 18:29 History of Present Illness HPI narrative: Patient is a 32-year-old female who is a G8, at 5 weeks gestational age by LMP. She has a history of an ectopic which was 2 pregnancies ago where the actually implanted into the scar and was treated surgically and repaired where she subsequently had a normal following that. She states that she has been followed closely by her [facility] doctor with her hCGs and her most recent hCG was in the 300s however today she presents with left sudden adnexal pain on the left described as a stabbing sensation. No urinary symptoms bowel symptoms vaginal bleeding crampiness or loss of fluid. Related Data Previous Rx's Medication Instructions Recorded cyclobenzaprine 5 mg tablet 5 mg PO TID PRN muscle spasm 5 05/05/22 days #15 tabs ibuprofen 800 mg tablet 800 mg PO TID PRN pain 7 days #20 05/05/22 tabs ondansetron 4 mg disintegrating 4 mg PO Q6H PRN nausea and 08/20/22 tablet vomiting 5 days #20 tabs promethazine 25 mg tablet 25 mg PO TID PRN nausea and 08/20/22 vomiting 5 days #20 tabs Allergies Allergy/AdvReac Type Severity Reaction Status Date / Time bismuth subsalicylate Allergy Mild Rash, Verified 05/05/22 15:13 [From Kaopectate (bismuth trouble subsalicy)] breathing PFSH PFS Disclaimer: The information contained in this section may have been updated after the patient was seen, as this information can be updated by other users. Social History Smoking Status: Never smoker alcohol intake: never substance use type: denies use current occupational status: unemployed Travel in the last 8 weeks: [place] the [place] household members: spouse housing: house current occupation: [employer] ROS Obtained: Yes All systems reviewed & no additional complaints except as documented Physical Exam General General appearance: alert Respiratory Respiratory exam: Present normal lung sounds bilaterally Cardiovascul
--- NOTE | 2022-08-20 18:45 | PC.NURSE ---
notified radiology of u/s order
--- NOTE | 2022-08-20 18:49 | PC.NURSE ---
Vomited x 2. Zofran administered. Pt to US.
[2022-08-20 19:08] LABS: Basophils % 0.3 % (0.1-2.0); Eosinophils # 0.2 K/mm3 (0.0-0.4); Hematocrit 36.5 % (37.0-47.0); Hemoglobin 11.4 g/dL (12.2-16.2); Lymphocytes % 27.9 % (10-50); Mean Corpuscular HGB Conc 31.1 g/dL (31.8-35.4); Mean Corpuscular Hemoglobin 25.9 pg (27.0-31.2); Mean Corpuscular Volume 83.3 fl (81-99); Mean Platelet Volume 9.7 fl (7.4-10.4); Monocytes # 0.6 K/mm3 (0.1-1.0); Monocytes % 5.8 % (1.7-9.3); Neutrophils # 6.9 K/mm3 (1.8-7.8); Platelet Count 256 K/mm3 (142-424); Red Blood Count 4.39 M/mm3 (4.20-5.40); Red Cell Distribution Width 15.3 % (11.5-17.5); White Blood Count 10.8 K/mm3 (4.8-10.8)
[2022-08-20 19:09] LABS: Chloride 106 mmol/L (98-107); Sodium 142 mmol/L (136-145)
[2022-08-20 19:12] LABS: Blood Urea Nitrogen 14 mg/dl (7-17); Calcium 8.3 mg/dl (8.4-10.2); Carbon Dioxide 25 mmol/L (22.0-30.0); Creatinine Clearance Estimated 146 mL/min (50-200); Estimated Glomerular Filt Rate 117 ml/min (>60); GFR (African American) 141 ML/MIN (>60); Glucose 92 mg/dl (74-100)
[2022-08-20 19:29] LABS: HCG,Quantitative 351 mIU/ml (0-5.42)
--- NOTE | 2022-08-20 19:40 | PC.NURSE ---
Pt returned to room from /s
[2022-08-20 19:44] LABS: Appearance,Urine CLOUDY (Clear); Bilirubin,Urine Negative (Negative); Blood, Urine Negative (Negative); Color,Urine YELLOW (Yellow); Glucose,Urine (UA) Negative (Negative); Ketones,Urine Negative (Negative); Leukocyte Esterase,Urine TRACE (Negative); Microscopic, Urine URINE MICROSCOPIC (MICROSCOPIC); Nitrate,Urine Negative (Negative); Protein,Urine 2+ (Negative); Specific Gravity, Urine 1.015 (1.005-1.030)
[2022-08-20 19:47] LABS: PH,Urine >= 9.0 (5.0-8.5)
--- NOTE | 2022-08-20 19:54 | PC.NURSE ---
Dr. Mcgrath at [facility]
[2022-08-20 20:00] VITALS: BP 105/69; PULSE 78; O2SAT 98
[2022-08-20 20:04] LABS: Amorphous Sediment,Urine 1+ /lpf; Bacteria,Urine 1+ /lpf; WBC,Urine Occasional #/hpf (0-3)
[2022-08-20 20:08] VITALS: BP 105/69; PULSE 75; RESP 18; TEMP 36.6; O2SAT 99
== END 2022-08-20 20:11 | disposition home or self-care (01) ==
PROVIDERS: Emergency Provider Student in an Organized Health Care Education/Training Program; PCP Nurse Practitioner Family
DX: O26.891 Other specified pregnancy related conditions, first trimester (principal); R10.9 Unspecified abdominal pain; Z3A.01 Less than 8 weeks gestation of pregnancy
CPT/HCPCS: 36415; 76801; 80048; 81001; 84702; 85025; 86850; 96361; 96374; 96375; 99285; J2405

== ENCOUNTER → 2022-08-22 08:40 | Outpatient (CLI) | payer OTHER, SELFPAY ==
[2022-08-22 10:37] LABS: HCG,Quantitative 286 mIU/ml (0-5.42)
== END ==
PROVIDERS: PCP Nurse Practitioner Family; Visit Provider Obstetrics & Gynecology
DX: Z34.91 Encounter for supervision of normal pregnancy, unspecified, first trimester (principal)
CPT/HCPCS: 36415; 84702

== ENCOUNTER 2023-03-15 10:07 | Emergency (ER) | payer OTHER, SELFPAY ==
[2023-03-15] VITALS (8 sets, daily range): BP systolic 54–127; BP diastolic 41–70; PULSE 77–98; RESP 12–22; TEMP 36.7–37.6; O2SAT 95–98; BMI 25.4
--- NOTE | 2023-03-15 10:04 | ECG_ITS ---
APPROVED REPORT Exam: Resting ECG HR:94 bpm ECG Measurements Heart Rate 94 AXES WI 138 P 58 QRSd 86 QRS 66 QT 323 T 59 QTc 375 Conclusion SINUS RHYTHM NORMAL ECG UNCONFIRMED REPORT Electronically signed by : Martín Gonsales MD 03/15/2023 21:45:23
--- NOTE | 2023-03-15 10:34 | ED_ITS ---
Discharge Plan Disposition Patient Disposition: Home, Self-Care Prescriptions Prescriptions: New oseltamivir [Tamiflu] 75 mg capsule 75 mg PO BID 5 Days Qty: 10 0RF ondansetron 4 mg tablet,disintegrating 4 mg PO Q6H PRN (Reason: nausea and vomiting) Qty: 10 0RF nitrofurantoin monohyd/m-cryst [Macrobid] 100 mg capsule 100 mg PO BID 5 Days Qty: 10 0RF Rx Instructions: must administer with a meal/food No Action promethazine 25 mg tablet 25 mg PO TID PRN (Reason: nausea and vomiting) 5 Days Qty: 20 0RF ondansetron 4 mg tablet,disintegrating 4 mg PO Q6H PRN (Reason: nausea and vomiting) 5 Days Qty: 20 0RF ibuprofen 800 mg tablet 800 mg PO TID PRN (Reason: pain) 7 Days Qty: 20 0RF cyclobenzaprine 5 mg tablet 5 mg PO TID PRN (Reason: muscle spasm) 5 Days Qty: 15 0RF Referrals Follow up/Referrals: Provider,Referral, MD [Referring] - See instructions Activity Restrictions/Add. Instructions Additional Instructions/Restrictions: Macrobid twice daily for 5 days for urinary tract infection. Tamiflu twice daily for 5 days for flu symptoms. Zofran has been sent to the pharmacy as well in case you develop nausea. Call your family doctor to establish care for this visit to the emergency department and schedule follow-up within 48 hours to ensure improvement. If you have any worsening of your condition or any other concerning signs or symptoms, return to the emergency department or your primary care doctor for further evaluation. Also talk to your family doctor about following your thyroid for subclinical hypothyroidism. You will not need treatment now, but potentially in the future. TSH was low, T4 was normal. Clinical Impressions Clinical Impression: Syncope, Dehydration, UTI (urinary tract infection), Influenza A Instructions Patient Instructions: DI for Syncope in Adults (Fainting), DI for Syncope in Children (Fainting) Discharge ED Provider: Nehemiah Begum General Adult HPI General Chief complaint: Syncope Stated complaint: cough, congestion, syncope Time Seen by Provider: 03/15/23 10:17 Mode of Arrival: Ambulatory Source of Information: Patient Limitations: No Limitations Description of Symptoms (Recalled from ER Triage Doc. by RN): pt c/o congestion, productive cough, fatigue, fever, MITCHELL, N/V, chest pain, lower/upper back pain, rib pain, pressure/pain with urination that feels, almost like an obstruction- odd. Pt also reports having a syncopal episode this morning. Pt states she woke up on the ground with her 12 year old yelling at her. History of Present Illness HPI narrative: 32-year-old female history of anxiety, depression on as needed benzodiazepine, strong family history of cerebral aneurysms presenting with syncope. Patient states that she is felt febrile, chilled, nauseated, generally unwell for the past couple of days. She has kids, they have sick contacts. Patient states in addition to this, she is felt mentally foggy and off for the past couple of days in addition to being unable to sleep well. Today, when she was getting her kids ready for the bus, she syncopized, does not remember the incident or any prodromal feeling. No chest pain, shortness of breath, nausea or vomiting, headache, vision changes, or neurologic deficits. Related Data Previous Rx's Medication Instructions Recorded cyclobenzaprine 5 mg tablet 5 mg PO TID PRN muscle spasm 5 05/05/22 days #15 tabs ibuprofen 800 mg tablet 800 mg PO TID PRN pain 7 days #20 05/05/22 tabs ondansetron 4 mg disintegrating 4 mg PO Q6H PRN nausea and 08/20/22 tablet vomiting 5 days #20 tabs promethazine 25 mg tablet 25 mg PO TID PRN nausea and 08/20/22 vomiting 5 days #20 tabs nitrofurantoin 100 mg PO BID 5 days #10 caps 03/15/23 monohydrate/macrocrystals 100 mg capsule (Macrobid) ondansetron 4 mg disintegrating 4 mg PO Q6H PRN nausea and 03/15/23 tablet vomiting #10 tabs oseltamivir 75 mg capsule (Tamiflu) 75 mg PO BID 5 days #10 caps 03/15/23 Allergies Allergy/AdvReac Type Severity Reaction Status Date / Time bismuth subsalicylate Allergy Mild Rash, Verified 05/05/22 15:13 [From Kaopectate (bismuth trouble subsalicy)] breathing PFSH [facility] Disclaimer: The information contained in this section may have been updated after the patient was seen, as this information can be updated by other users. 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 Obtained: Yes All systems reviewed & no additional complaints except as documented Physical Exam General General appearance: alert and in no apparent distress Head Head exam: atraumatic and normocephalic Eye Eye exam: Present normal appearance, PERRL and EOMI ENT ENT exam: Present mucous membranes moist and mucous membranes dry Neck Neck exam: Present normal inspection, full ROM and trachea midline; Absent meningismus Respiratory Respiratory exam: Present normal lung sounds bilaterally; Absent respiratory distress, wheezes, stridor, accessory muscle use or prolonged expiratory phase Cardiovascular Cardiovascular exam: Present normal rhythm and tachycardia Abdominal Exam Abdominal exam: Absent distention, tenderness, guarding, rebound or rigidity Extremities Exam Extremities exam: Absent edema Neurological Exam Neurological exam: Present alert, oriented X3, CN II-XII intact and normal gait; Absent motor sensory deficit Skin Skin exam: Present warm and diaphoresis; Absent erythema Medical Decision Making Medical Records Medical records reviewed: Yes I reviewed the patient's medical records. Maxime Inquiry Pt receiving controlled substance: No Maxime was queried for this patient: No Vital Signs: 03/15/23 10:10 03/15/23 10:30 03/15/23 11:00 Temperature 99.7 F H Temperature Source Oral Pulse Rate 98 H 98 H Pulse Rate [Left] 95 H Respiratory Rate 12 18 20 Blood Pressure 112/67 110/67 Blood Pressure [Right Arm] 127/68 Blood Pressure Mean 77 74 Blood Pressure Mean [Right Arm] 87 Blood Pressure Source [Right Arm] Automatic Cuff Blood Pressure Position [Right Arm] Sitting 02 Sat by Pulse Oximetry 98 97 97 03/15/23 11:30 03/15/23 12:01 Temperature Temperature Source Pulse Rate 88 96 H Pulse Rate [Left] Respiratory Rate 18 20 Blood Pressure 113/70 54/41 L Blood Pressure [Right Arm] Blood Pressure Mean 79 45 Blood Pressure Mean [Right Arm] Blood Pressure Source [Right Arm] Blood Pressure Position [Right Arm] 02 Sat by Pulse Oximetry 95 98 Lab Data Lab Results 03/15/23 10:10: WBC 6.6, RBC 4.12 L, Hgb 11.5 L, Hct 34.9 L, MCV 84.6, MCH 27.9, MCHC 33.0, RDW 15.9, Plt Count 184, MPV 10.2, Neut % (Auto) 83.3 H, Lymph % (Auto) 7.4 L, [place] % (Auto) 8.2, Eos % (Auto) 0.6, Baso % (Auto) 0.5, Neut # (Auto) 5.5, Lymph # (Auto) 0.5 L, [place] # (Auto) 0.5, Eos # (Auto) 0.0, Baso # (Auto) 0.0, Sodium 137, Potassium 4.3, Chloride 104, Carbon Dioxide 26, Anion Gap 11.3, BUN 7, Creatinine 0.70, Estimated Creat Clear 123, Estimated GFR 98, Est GFR ( Amer) 118, Glucose 94, Calcium 8.8, Total Bilirubin 0.3, AST 40 H, ALT 29, Alkaline Phosphatase 87, Troponin I < 0.01, Total Protein 7.4, Albumin 4.1, Globulin 3.3 H, Albumin/Globulin Ratio 1.2, TSH 0.29 L, Thyroxine (T4) 7.3 03/15/23 10:12: SARS-CoV-2 (PCR) Not detected, Influenza A Untype (PCR) Detected A, Influenza Type B (PCR) Not detected 03/15/23 11:57: Urine Color Yellow, Urine Appearance Clear, Urine pH 7.0, Ur Specific [place] <= 1.005, Urine Protein Negative, Urine Glucose (UA) Negative, Urine Ketones Negative, Urine Blood Negative, Urine Nitrate Negative, Urine Bilirubin Negative, Urine Urobilinogen 0.2, Ur Leukocyte Esterase Trace, Urine RBC None, Urine WBC Occasional, Ur Squamous Epith Cells Occasional, Urine Bacteria Trace, Urine HCG, Qual Negative 03/15/23 10:10 03/15/23 10:10 Orders (Tests/Meds): ED MEDICATIONS Discontinued Medications Generic Name Dose Route Start Last Admin Trade Name Freq PRN Reason Stop Dose Admin Lactated Ringer's 1,000 mls @ 999 mls/hr 03/15/23 10:40 03/15/23 11:20 Lactated Ringer's 1000 Ml Bag IV 03/15/23 11:40 999 mls/hr .Q1H1M ONE Administration Ketorolac Tromethamine 15 mg 03/15/23 10:34 03/15/23 11:20 Ketorolac 30mg/Ml Vial IV 03/15/23 10:35 15 mg ONCE ONE Administration Oseltamivir Phosphate 75 mg 03/15/23 11:18 03/15/23 11:20 Oseltamivir 75mg Capsule PO 03/15/23 11:19 75 mg ONCE ONE Administration ORDERS Category Date Time Status XR chest portable Stat Exams 03/15/23 10:35 Ordered Complete Blood Count Auto Diff Stat Lab 03/15/23 10:10 Completed Comprehensive Metabolic Panel Stat Lab 03/15/23 10:10 Completed Rapid PCR Covid and Flu A/B Stat Lab 03/15/23 10:12 Completed T4 (Thyroxine) Stat Lab 03/15/23 10:10 Completed TSH [Thyroid Stimulating Hormone] Stat Lab 03/15/23 10:10 Completed Troponin I Q3H Lab 03/15/23 13:45 Ordered Troponin I Q3H Lab 03/15/23 16:45 Ordered Troponin I Stat Lab 03/15/23 10:10 Completed Urinalysis and Microscopic Stat Lab 03/15/23 11:57 Completed Urine , HCG Qual. Stat Lab 03/15/23 11:57 Completed ECG initial [place] Routine Y 03/15/23 10:04 Completed Medical Decision Narrative: 32-year-old female history of anxiety, depression on as needed benzodiazepine, strong family history of cerebral aneurysms presenting with syncope. Patient states that she is felt febrile, chilled, nauseated, generally unwell for the past couple of days. She has kids, they have sick contacts. Patient states in addition to this, she is felt mentally foggy and off for the past couple of days in addition to being unable to sleep well. Today, when she was getting her kids ready for the bus, she syncopized, does not remember the incident or any prodromal feeling. No chest pain, shortness of breath, nausea or vomiting, headache, vision changes, or neurologic deficits. History was obtained via conversation with patient. On arrival, patient hemodynamically stable, alert, oriented x4, appropriate, GCS 15, moving all extremities spontaneously, pupils equal and reactive to light. Full physical exam performed and significant for well-appearing woman in no acute distress. Diaphoretic, tachycardic, not febrile, but patient took 1000 mg Tylenol just prior to arrival. No lower extremity edema, lungs clear to auscultation bilaterally, cardiac exam otherwise normal, neurologically intact. Differential includes viral syndrome, dehydration, vasovagal, orthostatic, metabolic abnormality, UTI, pneumonia, , among others. Patient was given fluids, Toradol for symptomatic management and correction of underlying abnormalities. Workup independently interpreted and significant for nonactionable CBC or chemistry. Initial troponin negative. TSH and T4 with subclinical hypothyroidism. Urinalysis with leukocyte esterase and bacteria, negative. Independent interpretation of EKG shows sinus rhythm 94 beats a minute no ST or T wave changes concerning for acute ischemia. MN, QRS, QT intervals within normal limits. [place] normal. [place] syncope score negative and low risk. On reevaluation, patient states she feeling much better, resting. Given patient presentation, workup, history, this most likely represents urinary tract infection, influenza, dehydration. Because patient at baseline without signs or symptoms of clinical decompensation, deemed appropriate for discharge. Results were relayed to patient who voiced understanding and were agreeable to outpatient management and follow up. At the time of discharge the patient was hemodynamically stable, tolerating PO, and mobilizing appropriately. Critical Care Critical Care Time Critical Care Time: No
[2023-03-15 10:40] LABS: Coronavirus 19, PCR Not Detected (NotDetected); Influenza B, PCR Not Detected (NotDetected)
[2023-03-15 10:43] LABS: Basophils % 0.5 % (0.1-2.0); Eosinophils % 0.6 % (0.1-12.0); Hematocrit 34.9 % (37.0-47.0); Hemoglobin 11.5 g/dL (12.2-16.2); Lymphocytes # 0.5 K/mm3 (0.7-4.5); Lymphocytes % 7.4 % (10-50); Mean Corpuscular Hemoglobin 27.9 pg (27.0-31.2); Mean Corpuscular Volume 84.6 fl (81-99); Mean Platelet Volume 10.2 fl (7.4-10.4); Monocytes # 0.5 K/mm3 (0.1-1.0); Monocytes % 8.2 % (1.7-9.3); Neutrophils # 5.5 K/mm3 (1.8-7.8); Neutrophils % 83.3 % (37.0-80.0); Platelet Count 184 K/mm3 (142-424); Red Blood Count 4.12 M/mm3 (4.20-5.40); Red Cell Distribution Width 15.9 % (11.5-17.5); White Blood Count 6.6 K/mm3 (4.8-10.8)
[2023-03-15 10:53] LABS: Alanine Aminotransferase 29 U/L (12-78); Albumin Level 4.1 g/dl (3.5-5.0); Albumin/Globulin Ratio 1.2 (1.1-1.8); Alkaline Phosphatase 87 U/L (38-126); Anion Gap 11.3 mEq/L (5-15); Aspartate Amino Transferase 40 U/L (14-36); Bilirubin,Total 0.3 mg/dl (0.2-1.3); Blood Urea Nitrogen 7 mg/dl (7-17); Calcium 8.8 mg/dl (8.4-10.2); Carbon Dioxide 26 mmol/L (22.0-30.0); Chloride 104 mmol/L (98-107); Creatinine Clearance Estimated 123 mL/min (50-200); Estimated Glomerular Filt Rate 98 ml/min (>60); GFR (African American) 118 ML/MIN (>60); Globulin 3.3 g/dL (1.3-3.2); Glucose 94 mg/dl (74-100); Potassium 4.3 mmoL/L (3.5-5.1); Sodium 137 mmol/L (136-145); Total Protein,Serum 7.4 g/dl (6.3-8.2)
[2023-03-15 11:09] LABS: T4 (Thyroxine) 7.3 ug/dl (5.53-11.0)
[2023-03-15 11:13] LABS: Influenza A, PCR Detected (NotDetected)
[2023-03-15 11:14] LABS: Troponin I < 0.01 ng/ml (0.00-0.034)
[2023-03-15] MEDS: OSELTAMIVIR 75MG CAPSULE 75 MG PO (11:20)
[2023-03-15] MEDS: LACTATED RINGERS 1000ML 1,000 ML 999 ML IV (11:20)
[2023-03-15] MEDS: KETOROLAC 30MG/ML VIAL 15 MG IV (11:20)
[2023-03-15 11:23] LABS: Thyroid Stimulating Hormone 0.29 uIU/mL (0.465-4.68)
--- NOTE | 2023-03-15 11:25 | PC.NURSE ---
pt resting at this time. no new complaints.
[2023-03-15 12:04] LABS: Microscopic, Urine URINE MICROSCOPIC (MICROSCOPIC)
[2023-03-15 12:09] LABS: Appearance,Urine CLEAR (Clear); Bilirubin,Urine Negative (Negative); Blood, Urine Negative (Negative); Color,Urine YELLOW (Yellow); Glucose,Urine (UA) Negative (Negative); Ketones,Urine Negative (Negative); Leukocyte Esterase,Urine TRACE (Negative); Nitrate,Urine Negative (Negative); Protein,Urine Negative (Negative); Specific Gravity, Urine <= 1.005 (1.005-1.030); Urobilinogen,Urine 0.2 EU/dl (0.2)
[2023-03-15 12:14] LABS: Urine Pregnancy, HCG Qual. Negative (Negative)
[2023-03-15 12:35] LABS: Bacteria,Urine Trace /lpf; Squamous Epithelial Cell,Urine Occasional #/hpf (0-5); WBC,Urine Occasional #/hpf (0-3)
== END 2023-03-15 13:01 | disposition home or self-care (01) ==
PROVIDERS: Emergency Provider Emergency Medicine; PCP Nurse Practitioner Family
DX: R55 Syncope and collapse (principal); E86.0 Dehydration; N39.0 Urinary tract infection, site not specified; J10.1 Influenza due to other identified influenza virus with other respiratory manifestations; J10.2 Influenza due to other identified influenza virus with gastrointestinal manifestations; R05.9 Cough, unspecified; R09.81 Nasal congestion; R53.83 Other fatigue; R50.9 Fever, unspecified; R51.9 Headache, unspecified; R11.2 Nausea with vomiting, unspecified; R07.9 Chest pain, unspecified; M54.6 Pain in thoracic spine; M54.50 Low back pain, unspecified; R07.81 Pleurodynia
CPT/HCPCS: 80053; 81001; 81025; 84436; 84443; 84484; 85025; 87636; 93005; 96361; 96374; 99285

== ENCOUNTER 2023-03-17 19:08 | Emergency (ER) | payer OTHER, SELFPAY ==
--- NOTE | 2023-03-17 20:53 | PC.NURSE ---
Patient was brought back to the triage room and was ambulatory at this time with a GCS of 15. Vitals were obtained and patient was notified when a room was available she would be placed. Patient returned to the ED
[2023-03-17 22:24] VITALS: BP 127/82; PULSE 74; RESP 16; TEMP 36.9; O2SAT 100; BMI 25.4
[2023-03-17 22:30] VITALS: BP 121/73; PULSE 80; O2SAT 100
[2023-03-17 22:32] LABS: Microscopic, Urine URINE MICROSCOPIC (MICROSCOPIC)
[2023-03-17 22:34] LABS: Appearance,Urine CLEAR (Clear); Bilirubin,Urine Negative (Negative); Blood, Urine Negative (Negative); Color,Urine YELLOW (Yellow); Glucose,Urine (UA) Negative (Negative); Ketones,Urine Negative (Negative); Leukocyte Esterase,Urine Negative (Negative); Nitrate,Urine Negative (Negative); PH,Urine 7.5 (5.0-8.5); Protein,Urine TRACE (Negative); Specific Gravity, Urine 1.015 (1.005-1.030)
[2023-03-17 22:38] LABS: Basophils % 0.4 % (0.1-2.0); Eosinophils # 0.1 K/mm3 (0.0-0.4); Eosinophils % 1.2 % (0.1-12.0); Hematocrit 36.7 % (37.0-47.0); Hemoglobin 12.1 g/dL (12.2-16.2); Lymphocytes % 36.7 % (10-50); Mean Corpuscular HGB Conc 32.9 g/dL (31.8-35.4); Mean Corpuscular Hemoglobin 27.6 pg (27.0-31.2); Mean Corpuscular Volume 83.9 fl (81-99); Mean Platelet Volume 10.5 fl (7.4-10.4); Monocytes # 0.5 K/mm3 (0.1-1.0); Monocytes % 6.1 % (1.7-9.3); Neutrophils # 4.5 K/mm3 (1.8-7.8); Neutrophils % 55.6 % (37.0-80.0); Platelet Count 200 K/mm3 (142-424); Red Blood Count 4.37 M/mm3 (4.20-5.40); Red Cell Distribution Width 15.6 % (11.5-17.5); White Blood Count 8.2 K/mm3 (4.8-10.8)
[2023-03-17 22:39] LABS: Urine Pregnancy, HCG Qual. Negative (Negative)
[2023-03-17 22:43] LABS: Chloride 103 mmol/L (98-107); Sodium 139 mmol/L (136-145)
[2023-03-17 22:44] LABS: Potassium 3.7 mmoL/L (3.5-5.1)
[2023-03-17 22:46] LABS: Alanine Aminotransferase 23 U/L (12-78); Albumin Level 4.1 g/dl (3.5-5.0); Albumin/Globulin Ratio 1.2 (1.1-1.8); Alkaline Phosphatase 99 U/L (38-126); Anion Gap 9.7 mEq/L (5-15); Aspartate Amino Transferase 34 U/L (14-36); Bilirubin,Total 0.2 mg/dl (0.2-1.3); Blood Urea Nitrogen 10 mg/dl (7-17); Carbon Dioxide 30 mmol/L (22.0-30.0); Creatinine Clearance Estimated 123 mL/min (50-200); Estimated Glomerular Filt Rate 98 ml/min (>60); GFR (African American) 118 ML/MIN (>60); Globulin 3.4 g/dL (1.3-3.2); Total Protein,Serum 7.5 g/dl (6.3-8.2)
[2023-03-17 22:47] LABS: Calcium 8.5 mg/dl (8.4-10.2); Glucose 95 mg/dl (74-100)
--- NOTE | 2023-03-17 22:51 | PC.NURSE ---
verbal order to set up for pap test received. speculum and supplies obtained and placed in room
[2023-03-17 22:55] LABS: Amorphous Sediment,Urine Trace /lpf; Bacteria,Urine 2+ /lpf
--- NOTE | 2023-03-17 23:26 | HMH.EDGENADL ---
Discharge Plan Disposition Patient Disposition: Home, Self-Care Prescriptions Prescriptions: New cefdinir 300 mg capsule 300 mg PO BID 7 Days Qty: 14 0RF fluconazole 150 mg tablet 150 mg PO DAILY Qty: 1 0RF Rx Instructions: administer on 03/20 No Action promethazine 25 mg tablet 25 mg PO TID PRN (Reason: nausea and vomiting) 5 Days Qty: 20 0RF ondansetron 4 mg tablet,disintegrating 4 mg PO Q6H PRN (Reason: nausea and vomiting) 5 Days Qty: 20 0RF oseltamivir [Tamiflu] 75 mg capsule 75 mg PO BID 5 Days Qty: 10 0RF ondansetron 4 mg tablet,disintegrating 4 mg PO Q6H PRN (Reason: nausea and vomiting) Qty: 10 0RF nitrofurantoin monohyd/m-cryst [Macrobid] 100 mg capsule 100 mg PO BID 5 Days Qty: 10 0RF Rx Instructions: must administer with a meal/food ibuprofen 800 mg tablet 800 mg PO TID PRN (Reason: pain) 7 Days Qty: 20 0RF cyclobenzaprine 5 mg tablet 5 mg PO TID PRN (Reason: muscle spasm) 5 Days Qty: 15 0RF Referrals Follow up/Referrals: Provider,Referral, MD [Primary Care Provider] - See instructions Activity Restrictions/Add. Instructions Additional Instructions/Restrictions: Call your family doctor to establish care for this visit to the emergency department and schedule follow-up within 48 hours to ensure improvement. If you have any worsening of your condition or any other concerning signs or symptoms, return to the emergency department or your primary care doctor for further evaluation. Clinical Impressions Clinical Impression: Vaginal candidiasis Instructions Patient Instructions: DI for Urinary Tract Infection (UTI), DI for Urinary Tract Infection in Children Discharge ED Provider: Nehemiah Begum General Adult HPI General Chief complaint: Urogenital-Female Stated complaint: vaginal pelvis pain Time Seen by Provider: 03/17/23 22:35 Mode of Arrival: Ambulatory Source of Information: Patient Limitations: No Limitations Description of Symptoms (Recalled from ER Triage Doc. by RN): pt reports being seen on 03/15 at the [facility] for Flu and UTI, reports 12 hours ago started having low back pain that radiates into pelvic area, reports vomiting. History of Present Illness HPI narrative: 32-year-old female recent diagnosis of urinary tract infection and influenza presenting with vaginal pain. Patient was diagnosed with urinary tract infection started on Macrobid on 03/15. Since that time, developed right flank pain that radiates down to her groin. No fevers or chills, no nausea or vomiting, but called her meal cooker who told her to come to the emergency department. Patient denies general discharge or bleeding. No chance of . Pain is excruciating, she has had yeast infections in the past and this feels different. Related Data Previous Rx's Medication Instructions Recorded cyclobenzaprine 5 mg tablet 5 mg PO TID PRN muscle spasm 5 05/05/22 days #15 tabs ibuprofen 800 mg tablet 800 mg PO TID PRN pain 7 days #20 05/05/22 tabs ondansetron 4 mg disintegrating 4 mg PO Q6H PRN nausea and 08/20/22 tablet vomiting 5 days #20 tabs promethazine 25 mg tablet 25 mg PO TID PRN nausea and 08/20/22 vomiting 5 days #20 tabs nitrofurantoin 100 mg PO BID 5 days #10 caps 03/15/23 monohydrate/macrocrystals 100 mg capsule (Macrobid) ondansetron 4 mg disintegrating 4 mg PO Q6H PRN nausea and 03/15/23 tablet vomiting #10 tabs oseltamivir 75 mg capsule (Tamiflu) 75 mg PO BID 5 days #10 caps 03/15/23 cefdinir 300 mg capsule 300 mg PO BID 7 days #14 caps 03/17/23 fluconazole 150 mg tablet 150 mg PO DAILY 1 dose #1 tab 03/17/23 Allergies Allergy/AdvReac Type Severity Reaction Status Date / Time bismuth subsalicylate Allergy Mild Rash, Verified 05/05/22 15:13 [From Kaopectate (bismuth trouble subsalicy)] breathing [facility] Disclaimer: The information contained in this section may have been updated after the patient was seen, as this information can be updated by other users. 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 Obtained: Yes All systems reviewed & no additional complaints except as documented Physical Exam General General appearance: alert and in no apparent distress Head Head exam: atraumatic and normocephalic Eye Eye exam: Present normal appearance, PERRL and EOMI ENT ENT exam: Present mucous membranes moist Neck Neck exam: Present normal inspection, full ROM and trachea midline Respiratory Respiratory exam: Absent respiratory distress, wheezes, stridor, accessory muscle use or prolonged expiratory phase Cardiovascular Cardiovascular exam: Present normal rhythm Abdominal Exam Abdominal exam: Present soft; Absent distention, tenderness, guarding, rebound or rigidity Speculum exam: Present erythema and vaginal discharge; Absent vaginal bleeding or foreign body Extremities Exam Extremities exam: Absent edema Neurological Exam Neurological exam: Present alert, oriented X3, CN II-XII intact and normal gait; Absent motor sensory deficit Skin Skin exam: Present warm and dry; Absent diaphoresis or erythema Medical Decision Making Medical Records Medical records reviewed: Yes I reviewed the patient's medical records. Maxime Inquiry Pt receiving controlled substance: No Maxime was queried for this patient: No Vital Signs: 03/17/23 22:24 03/17/23 22:30 Temperature 98.4 F Temperature Source Oral Pulse Rate 80 Pulse Rate [Right] 74 Respiratory Rate 16 Blood Pressure 121/73 Blood Pressure [Right Arm] 127/82 Blood Pressure Mean [Right Arm] 97 Blood Pressure Source [Right Arm] Automatic Cuff Blood Pressure Position [Right Arm] Sitting 02 Sat by Pulse Oximetry 100 100 Oxygen Delivery Method Room Air Lab Data Lab Results 03/17/23 22:15: WBC 8.2, RBC 4.37, Hgb 12.1 L, Hct 36.7 L, MCV 83.9, MCH 27.6, MCHC 32.9, RDW 15.6, Plt Count 200, MPV 10.5 H, Neut % (Auto) 55.6, Lymph % (Auto) 36.7, [place] % (Auto) 6.1, Eos % (Auto) 1.2, Baso % (Auto) 0.4, Neut # (Auto) 4.5, Lymph # (Auto) 3.0, [place] # (Auto) 0.5, Eos # (Auto) 0.1, Baso # (Auto) 0.0, Sodium 139, Potassium 3.7, Chloride 103, Carbon Dioxide 30, Anion Gap 9.7, BUN 10 D, Creatinine 0.70, Estimated Creat Clear 123, Estimated GFR 98, Est GFR ( Amer) 118, Glucose 95, Calcium 8.5, Total Bilirubin 0.2, AST 34, ALT 23, Alkaline Phosphatase 99, Total Protein 7.5, Albumin 4.1, Globulin 3.4 H, Albumin/Globulin Ratio 1.2 03/17/23 22:18: Urine HCG, Qual Negative 03/17/23 22:27: Urine Color Yellow, Urine Appearance Clear, Urine pH 7.5, Ur Specific [place] 1.015, Urine Protein Trace, Urine Glucose (UA) Negative, Urine Ketones Negative, Urine Blood Negative, Urine Nitrate Negative, Urine Bilirubin Negative, Urine Urobilinogen 1.0, Ur Leukocyte Esterase Negative, Urine RBC None, Urine WBC None, Ur Squamous Epith Cells 3-5, Amorphous Sediment Trace, Urine Bacteria 2+ 03/17/23 22:15 03/17/23 22:15 Orders (Tests/Meds): ORDERS Category Date Time Status CMP [Comprehensive Metabolic Panel] Stat Lab 03/17/23 22:15 Completed Complete Blood Count Auto Diff Stat Lab 03/17/23 22:15 Completed Urinalysis and Microscopic Stat Lab 03/17/23 22:27 Completed Urine , HCG Qual. Stat Lab 03/17/23 22:18 Completed Urine Culture Stat Micro 03/17/23 22:27 Received Medical Decision Narrative: 32-year-old female recent diagnosis of urinary tract infection and influenza presenting with vaginal pain. Patient was diagnosed with urinary tract infection started on Macrobid on 03/15. Since that time, developed right flank pain that radiates down to her groin. No fevers or chills, no nausea or vomiting, but called her meal cooker who told her to come to the emergency department. Patient denies general discharge or bleeding. No chance of . Pain is excruciating, she has had yeast infections in the past and this feels different. History was obtained via conversation with patient. Well-appearing woman in no acute distress. Abdomen soft, nontender, nondistended. exam with external erythema, tenderness on speculum exam. Patient has copious, thick white discharge in vaginal vault concerning for yeast infection. Urinalysis without acute concern for UTI. Because patient having pain radiating to her flanks and diagnosed with UTI just prior to this visit, medication changed to cefdinir for Macrobid for remainder of course. Patient was also given Diflucan here in the emergency department and another dose was sent to her pharmacy of choice. Given patient presentation, workup, history, this most likely represents [place] vaginitis. Because patient at baseline without signs or symptoms of clinical decompensation, deemed appropriate for discharge. Results were relayed to patient who voiced understanding and were agreeable to outpatient management and follow up. At the time of discharge the patient was hemodynamically stable, tolerating PO, and mobilizing appropriately. Critical Care Critical Care Time Critical Care Time: No
[2023-03-17] MEDS: CEFDINIR 300MG CAPSULE 300 MG PO (23:30)
[2023-03-17] MEDS: FLUCONAZOLE 100MG TABLET 200 MG PO (23:35)
[2023-03-17 23:42] VITALS: BP 132/82; PULSE 81; RESP 18; TEMP 36.8; O2SAT 99
== END 2023-03-17 23:43 | disposition home or self-care (01) ==
PROVIDERS: Emergency Provider Emergency Medicine
DX: B37.31 Acute candidiasis of vulva and vagina (principal); M54.50 Low back pain, unspecified; R11.10 Vomiting, unspecified; R10.2 Pelvic and perineal pain
CPT/HCPCS: 80053; 81001; 81025; 85025; 87086; 99285

== ENCOUNTER 2023-06-19 09:32 | Outpatient (CLI) | payer OTHER, SELFPAY ==
--- NOTE | 2023-06-19 | XR_ITS ---
FINAL REPORT CLINICAL HISTORY: LOW BACK PAIN FINDINGS: LEFT HIP 2 views of the left hip are obtained. There is no acute fracture or dislocation. Visualized joint spaces are normally aligned. There are mild degenerative changes. There is no acute soft tissue abnormality. IMPRESSION: No acute bony abnormality. Reviewed, Interpreted and Dictated by Ranjeet Del Castillo III, MD Transcribed by Elizabeth Pascual Authenticated and [facility]
--- NOTE | 2023-06-19 | XR_ITS ---
FINAL REPORT CLINICAL HISTORY: LOW BACK PAIN FINDINGS: LUMBAR SPINE AP and lateral views were obtained. There is no acute fracture or malalignment. There are minimal degenerative changes. Mild chronic wedging is seen of T12. Vertebrae are normal height. Prevertebral soft tissues are unremarkable. IMPRESSION: No acute bony abnormality. Reviewed, Interpreted and Dictated by Ranjeet Del Castillo III, MD Transcribed by Elizabeth Pascual Authenticated and [facility]
== END 2023-06-19 23:59 | disposition home or self-care (01) ==
LOC: RAD 09:33
PROVIDERS: PCP Nurse Practitioner Family; Visit Provider Nurse Practitioner Family
DX: M25.552 Pain in left hip (principal); M54.50 Low back pain, unspecified
CPT/HCPCS: 72100; 73502

== ENCOUNTER 2023-07-28 11:00 | Outpatient (RCR) | payer OTHER, SELFPAY | END 2023-07-28 11:05 | disposition home or self-care (01) | LOC: PT 11:00 | PROVIDERS: Visit Provider Nurse Practitioner Family | DX: M54.50 Low back pain, unspecified (principal) | CPT/HCPCS: 97163 ==

== ENCOUNTER 2023-08-18 13:16 | Outpatient (CLI) | payer OTHER, SELFPAY ==
--- NOTE | 2023-08-18 13:25 | MM_ITS ---
PROCEDURE INFORMATION: Exam: Bilateral Screening 3D Mammography Exam date and time: 08/18/2023 1:05 PM Age: 33 years old Clinical indication: Palpable abnormality in the right medial breast TECHNIQUE: Imaging protocol: Bilateral Screening tomosynthesis and 2D mammography including computer-aided detection (CAD) when performed. COMPARISON: No relevant prior studies available. FINDINGS: MAMMOGRAPHY: Breast composition: There are scattered areas of fibroglandular density. Mass: A skin marker was placed over an area of palpable concern in the right upper inner quadrant. Predominantly adipose tissue is noted. Architectural distortion: None. Calcifications: No suspicious calcifications. Asymmetric density: None. Skin thickening: None. Axillary adenopathy: None. IMPRESSION: Patient to return for targeted right breast ultrasound for full evaluation of the palpable abnormality. ASSESSMENT: BI-RADS Category 0: Incomplete- Need Additional Imaging Evaluation and/or Prior Mammograms for Comparison.
== END 2023-08-18 23:59 | disposition home or self-care (01) ==
LOC: RAD 13:17
PROVIDERS: PCP Nurse Practitioner Family; Visit Provider Nurse Practitioner Family
DX: Z12.31 Encounter for screening mammogram for malignant neoplasm of breast (principal)
CPT/HCPCS: 77063; 77067

== ENCOUNTER 2023-08-29 14:47 | Outpatient (CLI) | payer OTHER, SELFPAY ==
[2023-08-29 15:10] LABS: Basophils # 0.1 K/mm3 (0-0.2); Basophils % 0.7 % (0.1-2.0); Eosinophils # 0.1 K/mm3 (0.0-0.4); Eosinophils % 1.2 % (0.1-12.0); Hematocrit 38.2 % (37.0-47.0); Hemoglobin 11.8 g/dL (12.2-16.2); Lymphocytes # 2.3 K/mm3 (0.7-4.5); Lymphocytes % 27.2 % (10-50); Mean Corpuscular HGB Conc 30.9 g/dL (31.8-35.4); Mean Corpuscular Hemoglobin 26.6 pg (27.0-31.2); Mean Corpuscular Volume 86.1 fl (81-99); Mean Platelet Volume 9.7 fl (7.4-10.4); Monocytes # 0.4 K/mm3 (0.1-1.0); Monocytes % 4.6 % (1.7-9.3); Neutrophils # 5.7 K/mm3 (1.8-7.8); Neutrophils % 66.2 % (37.0-80.0); Platelet Count 309 K/mm3 (142-424); Red Blood Count 4.43 M/mm3 (4.20-5.40); White Blood Count 8.6 K/mm3 (4.8-10.8)
[2023-08-29 15:20] LABS: Hemoglobin A1C 4.6 % (4.0-6.0)
[2023-08-29 15:54] LABS: Free Thyroxine Index 3.6 ug/dL (5.93-13.13); T4 (Thyroxine) 10.7 ug/dl (5.53-11.0); Triiodothryronine (T3) Uptake 34 % (23.5-40.5)
[2023-08-29 16:08] LABS: Thyroid Stimulating Hormone 1.05 uIU/mL (0.465-4.68)
[2023-08-29 16:42] LABS: Alanine Aminotransferase 31 U/L (12-78); Albumin Level 4.4 g/dl (3.5-5.0); Albumin/Globulin Ratio 1.3 (1.1-1.8); Alkaline Phosphatase 83 U/L (38-126); Aspartate Amino Transferase 65 U/L (14-36); Bilirubin,Total 0.7 mg/dl (0.2-1.3); Blood Urea Nitrogen 14 mg/dl (7-17); Calcium 9.7 mg/dl (8.4-10.2); Carbon Dioxide 28 mmol/L (22.0-30.0); Chloride 105 mmol/L (98-107); Estimated Glomerular Filt Rate 83 ml/min (>60); GFR (African American) 101 ML/MIN (>60); Globulin 3.5 g/dL (1.3-3.2); Glucose 82 mg/dl (74-100); Sodium 142 mmol/L (136-145); Total Protein,Serum 7.9 g/dl (6.3-8.2)
[2023-08-29 17:45] LABS: Vitamin B12 372 pg/mL (239-931)
[2023-08-29 18:23] LABS: Folate > 20.00 ng/mL
[2023-09-06 18:10] LABS: 1,25 Dihydroxy Vitamin D 34 pg/mL (.); 1,25-Dihydroxy, Vitamin D-2 <10 pg/mL (.); 1,25-Dihydroxy, Vitamin D-3 32 pg/mL (.)
== END 2023-08-29 23:59 | disposition home or self-care (01) ==
LOC: LAB 14:49
PROVIDERS: Visit Provider Obstetrics & Gynecology
DX: N92.0 Excessive and frequent menstruation with regular cycle (principal); N94.6 Dysmenorrhea, unspecified
CPT/HCPCS: 80050; 80053; 82607; 82652; 82728; 82746; 83036; 84436; 84443; 84479; 85025

== ENCOUNTER 2023-09-01 10:52 | Outpatient (CLI) | payer OTHER, SELFPAY ==
--- NOTE | 2023-09-01 10:55 | US_ITS ---
PROCEDURE: US TRANSVAGINAL CLINICAL INDICATION: menorrhagia, dysmenorrhea COMPARISON: US US TRANSVAGINAL from 09/14/2018 FINDINGS: Transvaginal sonographic images of the pelvis were obtained. UTERUS: 9.6 cm x 6.8 cmx 3.5 cm anteverted with a combined endometrial thickness of 3.6mm. There are small echogenic foci within the very distal end of the cervix. There is posterior shadowing. There is a small amount of fluid within the endometrium. A scar is seen. LEFT OVARY: 3.6 cmx1.7 cmx1.9cm with a volume of 6ml. There are several small follicles. RIGHT OVARY: 2.6 cmx 2.0cmx1.8 cm with a volume of 5ml. There are several small follicles. The largest measures 0.8 cm. Both ovaries are seen and appear normal. Doppler flow to both ovaries are seen. There is no fluid in the cul-de-sac. IMPRESSION: 1. Anteverted uterus normal in shape and size. The endometrium is thin. 2. There is a trace amount of fluid within the endometrium. 3. There are small echogenic foci in the distal cervix with posterior shadowing. 4. Both ovaries are seen and appear normal. The each have multiple follicles. 5. No fluid in the cul-de-sac. Dictated by: Boby Ramon MD 09/02/2023 12:45 Boby Ramon MD in [place] 09/02/2023 12:45
== END 2023-09-01 23:59 | disposition home or self-care (01) ==
LOC: RAD 10:53
PROVIDERS: Visit Provider Obstetrics & Gynecology
DX: N92.0 Excessive and frequent menstruation with regular cycle (principal); N94.6 Dysmenorrhea, unspecified
CPT/HCPCS: 76830

== ENCOUNTER 2023-09-11 10:56 | Outpatient (CLI) | payer OTHER, SELFPAY ==
--- NOTE | 2023-09-11 10:59 | US_ITS ---
PROCEDURE INFORMATION: Exam: US Right Breast, Complete Exam date and time: 09/11/2023 11:04 AM Age: 33 years old Clinical indication: Region of palpable concern in the right breast. Recent negative mammogram. TECHNIQUE: Imaging protocol: Complete ultrasound of all four quadrants of the right breast and the retroareolar regions, including ultrasound of the axilla when performed. COMPARISON: MG MM DIG SCREENING MAMM BI W/CAD 08/18/2023 1:05 PM FINDINGS: ULTRASOUND: Breast ultrasound findings: Right breast ultrasound: No cysts, masses, regions of shadowing or distortion are seen. No abnormal lymph nodes in the axilla. IMPRESSION: No sonographic finding to explain the region of palpable concern in the right breast. Recommend clinical follow-up.There are no findings suspicious for malignancy. Annual mammographic screening is recommended to commence at age 40 unless otherwise clinically indicated. ASSESSMENT: BI-RADS Category 1: Negative.
== END 2023-09-11 23:59 | disposition home or self-care (01) ==
LOC: RAD 10:57
PROVIDERS: PCP Nurse Practitioner Family; Visit Provider Nurse Practitioner Family
DX: N63.10 Unspecified lump in the right breast, unspecified quadrant (principal)
CPT/HCPCS: 76641

== ENCOUNTER 2023-09-11 11:20 | Emergency (ER) | payer OTHER, SELFPAY ==
[2023-09-11 11:25] VITALS: BP 129/79; PULSE 70; RESP 20; TEMP 36.9; O2SAT 100; BMI 27.1
--- NOTE | 2023-09-11 11:40 | EXP.UTC ---
Discharge Plan Disposition Patient Disposition: Home, Self-Care Condition: Good Prescriptions Prescriptions: New ondansetron 4 mg Tablet,Disintegrating 4 mg PO Q8H PRN (Reason: Nausea) Qty: 12 0RF Referrals Follow up/Referrals: Karely Deutsch APRN [Primary Care Provider] - See instructions Activity Restrictions/Add. Instructions Additional Instructions/Restrictions: Drink plenty of fluids. Water or an electrolyte drink like pedialyte would be best. Take tylenol for pain or fever. Take the medications as directed. Follow up with your regular doctor. GO TO THE ER FOR ANY WORSENING SYMPTOMS Clinical Impressions Clinical Impression: Dehydration, Gastroenteritis, Acute viral syndrome Stand Alone Forms Stand Alone Forms: Work/School Release Instructions Patient Instructions: DI for Dehydration -- Adult, Ondansetron Print Language Print Language: Serbian Discharge ED Provider: Monty Marsh [facility] [place] HPI General Stated complaint: vomiting blood, nausea, diarhea Time Seen by Provider: 09/11/23 11:39 History of Present Illness Provider Complaint: She states that she has had n/v/d for the past 2 days. She states there has been streaks of bright red blood in her vomitus at times. She denies any rectal bleeding or dark tarry stools. She also states that when she first stands up she has had dizziness this morning. She is worried that she is getting dehydrated. Related Data Previous Rx's ?Medication ?Instructions ?Recorded ondansetron 4 mg disintegrating 4 mg PO Q8H PRN Nausea #12 tabs 09/11/23 tablet Allergies Allergy/AdvReac Type Severity Reaction Status Date / Time bismuth subsalicylate Allergy Mild Rash, Verified 09/01/23 13:51 [From Kaopectate (bismuth trouble subsalicy)] breathing [facility] Disclaimer: The information contained in this section may have been updated after the patient was seen, as this information can be updated by other users. Medical History (Updated 09/11/23 @ 13:22 by Monty Marsh APRN) History of anemia Urinary tract infection History of gastroesophageal reflux (GERD) Endometriosis Dysmenorrhea Menorrhagia History of miscarriage History of fainting History of heavy periods Surgical History (Updated 09/11/23 @ 11:42 by Tami Ny RN) History of tympanostomy tube placement History of section Hx of section Social History Smoking Status: Never smoker alcohol intake: never substance use type: denies use current occupational status: unemployed Travel in the last 8 weeks: Inside the [place] household members: spouse housing: house current occupation: [employer] ROS Obtained: Yes All systems reviewed & no additional complaints except as documented Constitutional Constitutional: Denies chills, Denies fever(s) and Reports poor appetite ENT Ears, Nose, Mouth, and Throat: Denies dizziness and Denies sore throat Cardiovascular Cardiovascular: Denies dyspnea Respiratory Respiratory: Denies chest congestion, Denies cough and Denies dyspnea Gastrointestinal Gastrointestingal: Reports as per HPI; Denies abdominal pain Genitourinary Female Genitourinary: Denies difficulty voiding, Denies dysuria, Denies hematuria, Denies urinary frequency, Denies urinary incontinence, Denies urinary hesitancy and Denies urinary urgency Musculoskeletal Musculoskeletal: Denies arthralgias Integumentary/Breasts Skin/Breast: Denies rash Neurologic Neurologic: Denies dizziness Physical Exam General General appearance: alert and in no apparent distress Head Head exam: atraumatic and normocephalic Eye Eye exam: Present normal appearance, PERRL and EOMI ENT ENT exam: Present normal exam, normal oropharynx, mucous membranes moist, TM's normal bilaterally and normal external ear exam Neck Neck exam: Present normal inspection, full ROM and trachea midline; Absent tenderness, meningismus or lymphadenopathy Chest Chest inspection: Present normal inspection and symmetric chest wall rise; Absent tenderness, rash or abscess Respiratory Respiratory exam: Present normal lung sounds bilaterally; Absent respiratory distress, wheezes or stridor Cardiovascular Cardiovascular exam: Present regular rate and normal rhythm; Absent irregular rhythm, systolic murmur, diastolic murmur or JVD Abdominal Exam Abdominal exam: Present soft and hyperactive bowel sounds; Absent distention, tenderness, guarding, rebound, rigidity, psoas sign, obturator sign, heel tap sign, Maloney's sign, Rovsing's sign or tenderness at McBurney's Point Extremities Exam Extremities exam: Present normal inspection and full ROM; Absent tenderness Back Exam Back exam: Present normal inspection and full ROM; Absent tenderness, CVA tenderness (R) or CVA tenderness (L) Neurological Exam Neurological exam: Present alert, oriented X3 and CN II-XII intact Psychiatric Psychiatric exam: Present normal affect and normal mood Skin Skin exam: Present warm, dry, intact and normal color Lymphatic Lymphatic Findings: no adenopathy Medical Decision Making Medical Records Medical records reviewed: No I reviewed the patient's medical records. Maxime Inquiry Pt receiving controlled substance: No Lab Data Lab results reviewed: Yes I reviewed the patient's lab results. 09/11/23 12:05 09/11/23 12:05
[2023-09-11 11:42] VITALS: BP 108/69; BP 114/78; BP 119/75; PULSE 73; PULSE 97
[2023-09-11] MEDS: 0.9 % SODIUM CHLORIDE 1000ML 1,000 ML 999 ML IV (12:08)
[2023-09-11] MEDS: SODIUM CHLORIDE 0.9% 10ML FLUSH SYRINGE 10 ML IV (12:15)
[2023-09-11] MEDS: ONDANSETRON 4MG/2ML VIAL 4 MG IV (12:16)
[2023-09-11 12:18] LABS: Basophils # 0.1 K/mm3 (0-0.2); Basophils % 0.9 % (0.1-2.0); Eosinophils # 0.2 K/mm3 (0.0-0.4); Eosinophils % 2.2 % (0.1-12.0); Hematocrit 38.1 % (37.0-47.0); Hemoglobin 11.9 g/dL (12.2-16.2); Lymphocytes # 1.9 K/mm3 (0.7-4.5); Lymphocytes % 27.7 % (10-50); Mean Corpuscular HGB Conc 31.2 g/dL (31.8-35.4); Mean Corpuscular Hemoglobin 27.4 pg (27.0-31.2); Mean Corpuscular Volume 87.9 fl (81-99); Mean Platelet Volume 9.8 fl (7.4-10.4); Monocytes # 0.4 K/mm3 (0.1-1.0); Monocytes % 5.6 % (1.7-9.3); Neutrophils # 4.4 K/mm3 (1.8-7.8); Neutrophils % 63.7 % (37.0-80.0); Platelet Count 221 K/mm3 (142-424); Red Blood Count 4.33 M/mm3 (4.20-5.40); Red Cell Distribution Width 16.1 % (11.5-17.5)
[2023-09-11 12:20] LABS: Albumin Level 4.2 g/dl (3.5-5.0); Chloride 113 mmol/L (98-107); Sodium 141 mmol/L (136-145)
[2023-09-11 12:21] LABS: Potassium 4.5 mmoL/L (3.5-5.1)
[2023-09-11 12:23] LABS: Alanine Aminotransferase 16 U/L (12-78); Albumin/Globulin Ratio 1.3 (1.1-1.8); Alkaline Phosphatase 66 U/L (38-126); Amylase 108 U/L (30-110); Anion Gap 11.5 mEq/L (5-15); Aspartate Amino Transferase 30 U/L (14-36); Bilirubin,Total 0.4 mg/dl (0.2-1.3); Blood Urea Nitrogen 18 mg/dl (7-17); Calcium 8.8 mg/dl (8.4-10.2); Carbon Dioxide 21 mmol/L (22.0-30.0); Creatinine Clearance Estimated 131 mL/min (50-200); Estimated Glomerular Filt Rate 97 ml/min (>60); GFR (African American) 117 ML/MIN (>60); Globulin 3.3 g/dL (1.3-3.2); Glucose 87 mg/dl (74-100); Lipase 114 U/L (23-300); Total Protein,Serum 7.5 g/dl (6.3-8.2)
--- NOTE | 2023-09-11 13:00 | PC.NURSE ---
CHECKED ON PATIENT AT THIS TIME. SHE STATES IV ZOFRAN DID HELP WITH NAUSEA. NO NEEDS VOICED AT THIS TIME
[2023-09-11 13:47] VITALS: BP 119/75; PULSE 73; RESP 20; TEMP 36.9; O2SAT 100
== END 2023-09-11 13:50 | disposition home or self-care (01) ==
PROVIDERS: Emergency Provider Nurse Practitioner Family; PCP Nurse Practitioner Family
DX: K52.9 Noninfective gastroenteritis and colitis, unspecified (principal); E86.0 Dehydration; R11.2 Nausea with vomiting, unspecified
CPT/HCPCS: 80053; 82150; 83690; 85025; 96360; 96361; 96374; 99212; 99214; G0463; J2405

== ENCOUNTER 2023-10-26 13:47 | Outpatient (CLI) | payer OTHER, SELFPAY ==
[2023-10-26 14:26] LABS: Basophils % 0.3 % (0.1-2.0); Eosinophils % 0.5 % (0.1-12.0); Hematocrit 40.2 % (37.0-47.0); Hemoglobin 12.7 g/dL (12.2-16.2); Lymphocytes # 0.9 K/mm3 (0.7-4.5); Lymphocytes % 18.9 % (10-50); Mean Corpuscular HGB Conc 31.5 g/dL (31.8-35.4); Mean Corpuscular Hemoglobin 28.2 pg (27.0-31.2); Mean Corpuscular Volume 89.7 fl (81-99); Mean Platelet Volume 9.9 fl (7.4-10.4); Monocytes # 0.3 K/mm3 (0.1-1.0); Monocytes % 6.5 % (1.7-9.3); Neutrophils # 3.3 K/mm3 (1.8-7.8); Neutrophils % 73.8 % (37.0-80.0); Platelet Count 248 K/mm3 (142-424); Red Blood Count 4.48 M/mm3 (4.20-5.40); White Blood Count 4.5 K/mm3 (4.8-10.8)
[2023-10-26 14:40] LABS: Alanine Aminotransferase 17 U/L (12-78); Albumin Level 4.3 g/dl (3.5-5.0); Albumin/Globulin Ratio 1.3 (1.1-1.8); Alkaline Phosphatase 61 U/L (38-126); Anion Gap 10.1 mEq/L (5-15); Aspartate Amino Transferase 31 U/L (14-36); Bilirubin,Total 0.6 mg/dl (0.2-1.3); Blood Urea Nitrogen 9 mg/dl (7-17); Calcium 9.5 mg/dl (8.4-10.2); Carbon Dioxide 27 mmol/L (22.0-30.0); Chloride 106 mmol/L (98-107); Estimated Glomerular Filt Rate 97 ml/min (>60); GFR (African American) 117 ML/MIN (>60); Globulin 3.4 g/dL (1.3-3.2); Glucose 96 mg/dl (74-100); Potassium 4.1 mmoL/L (3.5-5.1); Sodium 139 mmol/L (136-145); Total Protein,Serum 7.7 g/dl (6.3-8.2)
[2023-10-26 14:57] LABS: 25-OH Vitamin D, Total 34.4 ng/mL (30-100)
[2023-10-26 22:13] LABS: Iron 44 ug/dL (37-170)
[2023-10-26 22:22] LABS: Total Iron Binding Capacity 394 ug/dL (265-497)
[2023-10-26 22:45] LABS: Thyroid Stimulating Hormone 0.67 uIU/mL (0.465-4.68)
[2023-10-26 22:46] LABS: Iron Saturation 11.167 % (15-55)
[2023-11-01 00:09] LABS: Estrogen 159 pg/mL (.)
[2023-11-07 17:15] LABS: Testosterone, Total, LC/MS 14 ng/dL (.)
== END 2023-10-26 23:59 | disposition home or self-care (01) ==
LOC: LAB 13:48
PROVIDERS: PCP Nurse Practitioner Family; Visit Provider Nurse Practitioner Family
DX: D64.9 Anemia, unspecified (principal); R53.83 Other fatigue; E55.9 Vitamin D deficiency, unspecified
CPT/HCPCS: 36415; 80050; 80053; 82306; 82672; 83540; 83550; 84403; 84439; 84443; 85025

== ENCOUNTER 2023-11-08 11:02 | Outpatient (CLI) | payer OTHER, SELFPAY ==
[2023-11-09 08:54] LABS: Progesterone 15.2 ng/mL (.)
== END 2023-11-08 23:59 | disposition home or self-care (01) ==
LOC: LAB 11:03
PROVIDERS: PCP Nurse Practitioner Family; Visit Provider Nurse Practitioner Family
DX: R53.83 Other fatigue (principal)
CPT/HCPCS: 36415; 84144

== ENCOUNTER 2023-11-15 08:11 | Outpatient (CLI) | payer OTHER, SELFPAY ==
[2023-11-15 09:02] LABS: Albumin Level 4.4 g/dl (3.5-5.0); Chloride 105 mmol/L (98-107); Potassium 4.1 mmoL/L (3.5-5.1); Sodium 138 mmol/L (136-145)
[2023-11-15 09:05] LABS: Alanine Aminotransferase 17 U/L (12-78); Albumin/Globulin Ratio 1.5 (1.1-1.8); Alkaline Phosphatase 47 U/L (38-126); Anion Gap 13.1 mEq/L (5-15); Aspartate Amino Transferase 31 U/L (14-36); Bilirubin,Total 0.7 mg/dl (0.2-1.3); Blood Urea Nitrogen 13 mg/dl (7-17); Carbon Dioxide 24 mmol/L (22.0-30.0); Estimated Glomerular Filt Rate 116 ml/min (>60); GFR (African American) 140 ML/MIN (>60); Total Protein,Serum 7.4 g/dl (6.3-8.2)
[2023-11-15 09:06] LABS: Calcium 9.3 mg/dl (8.4-10.2); Glucose 93 mg/dl (74-100)
[2023-11-15 09:22] LABS: HCG,Quantitative 38 mIU/ml (0-5.42)
[2023-11-16 11:15] LABS: Progesterone 15.3 ng/mL (.)
== END 2023-11-15 23:59 | disposition home or self-care (01) ==
PROVIDERS: PCP Nurse Practitioner Family; Visit Provider Obstetrics & Gynecology
DX: N80.9 Endometriosis, unspecified (principal); Z32.00 Encounter for pregnancy test, result unknown
CPT/HCPCS: 36415; 80053; 84144; 84702

== ENCOUNTER 2023-11-16 13:46 | Outpatient (CLI) | payer OTHER, SELFPAY ==
[2023-11-16 14:37] LABS: HCG,Quantitative 74 mIU/ml (0-5.42)
== END 2023-11-16 23:59 | disposition home or self-care (01) ==
PROVIDERS: Obstetrics & Gynecology; PCP Nurse Practitioner Family; Visit Provider Obstetrics & Gynecology
DX: Z34.90 Encounter for supervision of normal pregnancy, unspecified, unspecified trimester (principal)
CPT/HCPCS: 36415; 84702

== ENCOUNTER 2023-11-17 07:58 | Outpatient (CLI) | payer OTHER, SELFPAY ==
[2023-11-17 09:22] LABS: HCG,Quantitative 108 mIU/ml (0-5.42)
== END 2023-11-17 23:59 | disposition home or self-care (01) ==
PROVIDERS: PCP Nurse Practitioner Family; Visit Provider Obstetrics & Gynecology
DX: Z34.90 Encounter for supervision of normal pregnancy, unspecified, unspecified trimester (principal)
CPT/HCPCS: 36415; 84702

== ENCOUNTER 2023-11-19 08:07 | Outpatient (CLI) | payer OTHER, SELFPAY ==
[2023-11-19 10:39] LABS: HCG,Quantitative 296 mIU/ml (0-5.42)
== END 2023-11-19 23:59 | disposition home or self-care (01) ==
LOC: LAB 08:08
PROVIDERS: PCP Nurse Practitioner Family; Visit Provider Obstetrics & Gynecology
DX: O09.299 Supervision of pregnancy with other poor reproductive or obstetric history, unspecified trimester (principal)
CPT/HCPCS: 36415; 84702

== ENCOUNTER 2023-11-21 10:15 | Outpatient (CLI) | payer OTHER, SELFPAY ==
[2023-11-21 11:06] LABS: HCG,Quantitative 796 mIU/ml (0-5.42)
[2023-11-22 11:40] LABS: Progesterone 34.2 ng/mL (.)
== END 2023-11-21 23:59 | disposition home or self-care (01) ==
LOC: LAB 10:16
PROVIDERS: PCP Nurse Practitioner Family; Visit Provider Obstetrics & Gynecology
DX: Z32.01 Encounter for pregnancy test, result positive (principal)
CPT/HCPCS: 36415; 84144; 84702

== ENCOUNTER 2023-11-23 17:35 | Emergency (ER) | payer OTHER, SELFPAY ==
[2023-11-23 18:00] VITALS: BP 115/81; PULSE 78; RESP 20; TEMP 36.9; O2SAT 97; BMI 26.4
[2023-11-23 18:19] LABS: Microscopic, Urine URINE MICROSCOPIC (MICROSCOPIC)
--- NOTE | 2023-11-23 18:23 | ED_ITS ---
Discharge Plan Disposition Patient Disposition: Home, Self-Care Condition: Good Prescriptions Prescriptions: No Action progesterone micronized [Prometrium] 200 mg capsule 200 mg vaginal HS Qty: 30 2RF Rx Instructions: insert vaginally every night at bedtime ondansetron 4 mg Tablet,Disintegrating 4 mg PO Q8H PRN (Reason: Nausea) Qty: 12 0RF Referrals Follow up/Referrals: Norma Friedman APRN [Primary Care Provider] - See instructions Activity Restrictions/Add. Instructions Additional Instructions/Restrictions: Follow up with your OBGYN if pain continues Follow up with your OBGYN to discuss urine culture results Straight to ER if any lfie threatening symptoms Clinical Impressions Clinical Impression: Low back ache Instructions Patient Instructions: Urine Culture Print Language Print Language: Bhutanese Discharge ED Provider: Susi Price [facility] [place] HPI General Stated complaint: $-5 wks ,right back pain Mode of Arrival: Ambulatory Source of Information: Patient Limitations: No Limitations Time Seen by Provider: 11/23/23 18:24 Description of Symptoms (Recalled from Triage Doc. by RN): PATIENT C/O RIGHT FLANK PAIN THAT STARTED THIS AFTERNOON. PATIENT REPORTS SHE IS APPROX 4-5 WEEKS HEENT Symptoms (Recalled from RN notes): No Resp Symptoms (Recalled from RN notes): No Skin Symptoms (Recalled from RN notes): No MS Symptoms (Recalled from RN notes): No Functional Status (Recalled from RN notes): WNL History of Present Illness Provider Complaint: Patient states that she is 4wks OB States she has been having pain in her right kidney area all day States that she spoke with the OB cotton agent and they recommended coming in and getting her urine checked for UTI since she has frequent UTI's and get her Beta levels checked Denies cramping, denies abdominal pain, denies spotting Related Data Previous Rx's ?Medication ?Instructions ?Recorded ondansetron 4 mg disintegrating 4 mg PO Q8H PRN Nausea #12 tabs 09/11/23 tablet progesterone micronized 200 mg 200 mg vaginal HS #30 caps 11/16/23 capsule (Prometrium) Allergies Allergy/AdvReac Type Severity Reaction Status Date / Time bismuth subsalicylate Allergy Mild Rash, Verified 09/01/23 13:51 [From Kaopectate (bismuth trouble subsalicy)] breathing Worker's Comp Is this a Worker's Comp case?: No [facility] Disclaimer: The information contained in this section may have been updated after the patient was seen, as this information can be updated by other users. Medical History (Updated 11/23/23 @ 19:29 by Susi Price APRN) History of miscarriage, currently History of anemia Urinary tract infection History of gastroesophageal reflux (GERD) Endometriosis Dysmenorrhea Menorrhagia History of miscarriage History of fainting History of heavy periods Surgical History (Updated 09/11/23 @ 11:42 by Tami Ny RN) History of tympanostomy tube placement History of section Hx of section Social History Smoking Status: Never smoker alcohol intake: never substance use type: denies use current occupational status: unemployed Travel in the last 8 weeks: [place] the [place] household members: spouse housing: house current occupation: [employer] ROS Obtained: Yes All systems reviewed & no additional complaints except as documented and Yes Systems reviewed as appropriate & no additional complaints except as documented Constitutional Constitutional: Reports system reviewed and no additional complaints, except as documented, Reports as per HPI, Denies body ache, Denies chills and Denies fever(s) ENT Ears, Nose, Mouth, and Throat: Reports system reviewed and no additional complaints, except as documented and Reports as per HPI Cardiovascular Cardiovascular: Reports system reviewed and no additional complaints, except as documented and Reports as per HPI Respiratory Respiratory: Reports system reviewed and no additional complaints, except as documented and Reports as per HPI Gastrointestinal Gastrointestingal: Reports system reviewed and no additional complaints, except as documented and as per HPI; Denies abdominal pain or cramping Genitourinary Female Genitourinary: Reports system reviewed and no additional complaints, except as documented, Reports as per HPI, Reports flank pain, Denies hematuria, Denies pelvic pain, Reports urinary frequency and Reports urinary urgency Musculoskeletal Musculoskeletal: Reports system reviewed and no additional complaints, except as documented, Reports as per HPI and Reports back pain (right flank area) Physical Exam General General appearance: alert and in no apparent distress ENT ENT exam: Present mucous membranes moist Respiratory Respiratory exam: Present normal lung sounds bilaterally; Absent respiratory distress or wheezes Cardiovascular Cardiovascular exam: Present regular rate, normal rhythm and normal heart sounds Abdominal Exam Abdominal exam: Present soft and normal bowel sounds; Absent distention or tenderness Back Exam Back exam: Present tenderness Back 1 view image: 2 1. reports pain that started this am and continued throughout the day, 4wks OB Denies known injury denies radiation of pain, denies loss of control of bowel or bladder Neurological Exam Neurological exam: Present alert, oriented X3 and normal gait Medical Decision Making Medical Records Screening: Per USPSTF and CDC recommendations, given the prevalence of disease in our region, it is our hospital?s policy to screen for HIV and viral Hepatitis for all patients aged 18 and over and those with ongoing risk factors. Maxime Inquiry Pt receiving controlled substance: No Maxime was queried for this patient: No Vital Signs: 11/23/23 18:00 Temperature 98.4 F Temperature Source Oral Pulse Rate [Left Brachial] 78 Respiratory Rate 20 Blood Pressure [Left Arm] 115/81 Blood Pressure Mean [Left Arm] 92 Blood Pressure Source [Left Arm] Automatic Cuff Blood Pressure Position [Left Arm] Sitting 02 Sat by Pulse Oximetry 97 Oxygen Delivery Method Room Air Lab Data Lab results reviewed: Yes I reviewed the patient's lab results. Orders (Tests/Meds): ORDERS Category Date Time Status Beta HCG, Quant [HCG,Quantitative] Stat Lab 11/23/23 18:05 Received Urinalysis and Microscopic Stat Lab 11/23/23 17:50 Received Medical Decision Narrative: Spoke with Dr Jaden MATHEWS cotton agent will send urine for culture and patient informed to follow up in the office
[2023-11-23 18:38] LABS: Appearance,Urine CLEAR (Clear); Bilirubin,Urine Negative (Negative); Blood, Urine Negative (Negative); Color,Urine YELLOW (Yellow); Glucose,Urine (UA) Negative (Negative); Ketones,Urine Negative (Negative); Leukocyte Esterase,Urine Negative (Negative); Nitrate,Urine Negative (Negative); Protein,Urine 1+ (Negative); Specific Gravity, Urine 1.015 (1.005-1.030); Urobilinogen,Urine 0.2 EU/dl (0.2)
[2023-11-23 18:44] LABS: PH,Urine >= 9.0 (5.0-8.5)
[2023-11-23 18:50] LABS: HCG,Quantitative 2100 mIU/ml (0-5.42)
[2023-11-23 19:20] LABS: Bacteria,Urine 2+ /lpf; Mucus,Urine 4+ /lpf; RBC,Urine Occasional #/hpf (0-3); Squamous Epithelial Cell,Urine 20-50 #/hpf (0-5)
[2023-11-23 19:28] VITALS: BP 115/81; PULSE 78; RESP 20; TEMP 36.9; O2SAT 97
== END 2023-11-23 19:30 | disposition home or self-care (01) ==
PROVIDERS: Emergency Provider Nurse Practitioner; PCP Nurse Practitioner Family
DX: M54.50 Low back pain, unspecified (principal); O99.891 Other specified diseases and conditions complicating pregnancy; Z3A.01 Less than 8 weeks gestation of pregnancy
CPT/HCPCS: 81001; 84702; 87086; 99213; G0381

== ENCOUNTER 2023-11-27 10:51 | Outpatient (CLI) | payer OTHER, SELFPAY ==
[2023-11-27 18:09] LABS: HCG,Quantitative 4318 mIU/ml (0-5.42)
== END 2023-11-27 23:59 | disposition home or self-care (01) ==
LOC: LAB 10:52
PROVIDERS: PCP Nurse Practitioner Family; Visit Provider Obstetrics & Gynecology
DX: N96 Recurrent pregnancy loss (principal)
CPT/HCPCS: 36415; 84702

== ENCOUNTER 2023-12-01 08:49 | Outpatient (CLI) | payer OTHER, SELFPAY ==
--- NOTE | 2023-12-01 08:50 | US_ITS ---
PROCEDURE: US OB <= 14 WEEKS FETUS CLINICAL INDICATION: viability, location COMPARISON: No exams were available for comparison FINDINGS: Transvaginal sonographic images of the pelvis were obtained. Her last menstrual period is unknown. An intrauterine gestational sac is present with a pole with a crown-rump length of 0.21cm This correlates to a gestational age of 5weeks 6days. heart tones are present absent. Yolk sac is noted. The yolk sac measures 4.2 mm. The right ovary is seen and appears normal. The left ovary is seen and appears normal. There is no fluid in the cul-de-sac. IMPRESSION: 1. Gestational sac and yolk sac are seen within the uterine cavity. 2. heart rate activity is not seen but it may be too early. 3. A pole is seen that measures 5 weeks 6 days. 4. There is a small subchorionic hemorrhage. 5. Both ovaries are seen and appear normal. 6. Suggest repeat scan in 1 week to confirm viability. Dictated by: Boby Ramon MD 12/02/2023 08:28 Boby Ramon MD in [place] 12/02/2023 08:28
[2023-12-01 11:09] LABS: HCG,Quantitative 5112 mIU/ml (0-5.42)
== END 2023-12-01 23:59 | disposition home or self-care (01) ==
LOC: RAD 08:50
PROVIDERS: PCP Nurse Practitioner Family; Visit Provider Obstetrics & Gynecology
DX: Z34.81 Encounter for supervision of other normal pregnancy, first trimester (principal)
CPT/HCPCS: 36415; 76801; 84702

== ENCOUNTER 2023-12-03 10:26 | Emergency (ER) | payer OTHER, SELFPAY ==
[2023-12-03] VITALS (13 sets, daily range): BP systolic 107–128; BP diastolic 62–83; PULSE 74–118; RESP 18; TEMP 36.9; O2SAT 97–100; BMI 26.1
--- NOTE | 2023-12-03 10:35 | PC.NURSE ---
Dr. Carrillo at [facility] for pt eval
--- NOTE | 2023-12-03 10:46 | US_ITS ---
PROCEDURE INFORMATION: Exam: US , Transvaginal Exam date and time: 12/03/2023 11:21 AM Age: 33 years old Clinical indication: complicated by abdominal or pelvic pain; Lower; First trimester (<14 weeks 0 days); Gestational age or lmp: 5w6d; ; Additional info: Preg abdominal pain TECHNIQUE: Imaging protocol: Real-time transvaginal obstetrical ultrasound of the maternal pelvis with image documentation. Transvaginal imaging was used for better evaluation of the fetus, adnexa, and/or cervix. COMPARISON: US OB <= 14 WEEKS FETUS 12/01/2023 9:08 AM FINDINGS: Gestation: Yolk sac measures 3.7 mm. heart rate: 92 bpm Placenta: Note made of unusual elongated configuration of the endometrial sac. Nonspecific finding. Additional findings: Small subchorionic hemorrhage, unchanged. BIOMETRY: Gestational age (AUA): 5 w 6 d Estimated due date (AUA): 07/29/2024 [place] rump length (CRL): 2.73 mm. 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 Right ovary/adnexa: Right ovary measures 3.42 cm x 2 cm x 1.86 cm. Right ovarian volume is 6.66 mL. Left ovary/adnexa: Left ovary measures 2.35 cm x 1.25 cm x 1.01 cm. Left ovarian volume is 1.55 mL. IMPRESSION: 1. Single live intrauterine with estimated gestational age of 5 weeks and 6 days. 2. Small subchorionic hemorrhage.
--- NOTE | 2023-12-03 10:46 | HMH.EDGENADL ---
Discharge Plan Disposition Patient Disposition: Home, Self-Care Chief Complaint: Abdominal Pain Prescriptions Prescriptions: No Action progesterone micronized [Prometrium] 200 mg capsule 200 mg vaginal HS Qty: 30 2RF Rx Instructions: insert vaginally every night at bedtime ondansetron 4 mg Tablet,Disintegrating 4 mg PO Q8H PRN (Reason: Nausea) Qty: 12 0RF Referrals Follow up/Referrals: Norma Friedman APRN [Primary Care Provider] - See instructions Activity Restrictions/Add. Instructions Additional Instructions/Restrictions: At this time it was felt you are safe to be discharged home. If new or worsening symptoms please do not hesitate to return the emergency department. Please follow-up with Dr. Justice this Monday as discussed. Clinical Impressions Clinical Impression: , Abdominal pain, Back pain Instructions Patient Instructions: DI for Acute Abdominal Pain Print Language Print Language: Kenyan Discharge ED Provider: Travis Carrillo General Adult HPI General Chief complaint: Abdominal Pain Stated complaint: 6wks antepardum back/abd pain Time Seen by Provider: 12/03/23 10:29 History of Present Illness HPI narrative: Patient is a 33-year-old female G9, P5 EGA 6 weeks, previous miscarriage with ectopic in scar who presents to the emergency department for evaluation of abdominal pain in the setting of . Onset was acute, low midline pelvic pain radiating through to her back. There is associated dysuria. 1 episode of nonbloody vomiting. She has had intermittent stabbing right lower quadrant abdominal pain throughout her daily which is not happening currently. No diarrhea. No chest pain. Patient has been following with Dr. Justice and has been trending her hCGs and reportedly has subchorionic hematoma. ultrasound reviewed which was conducted on , gestational sac and yolk sac in the uterine cavity with heart rate not detected however it was measuring 5 weeks and 6 days. There is small subchorionic hemorrhage. Both ovaries appear normal. No vaginal bleeding or discharge. No other acute complaints at this time. Related Data Previous Rx's ?Medication ?Instructions ?Recorded ondansetron 4 mg disintegrating 4 mg PO Q8H PRN Nausea #12 tabs 09/11/23 tablet progesterone micronized 200 mg 200 mg vaginal HS #30 caps 11/16/23 capsule (Prometrium) Allergies Allergy/AdvReac Type Severity Reaction Status Date / Time bismuth subsalicylate Allergy Mild Rash, Verified 09/01/23 13:51 [From Kaopectate (bismuth trouble subsalicy)] breathing [facility] Disclaimer: The information contained in this section may have been updated after the patient was seen, as this information can be updated by other users. Medical History (Updated 12/03/23 @ 14:38 by Travis Carrillo MD) History of recurrent miscarriages History of miscarriage, currently History of anemia Urinary tract infection History of gastroesophageal reflux (GERD) Endometriosis Dysmenorrhea Menorrhagia History of miscarriage History of fainting History of heavy periods Surgical History (Updated 09/11/23 @ 11:42 by Tami Ny RN) History of tympanostomy tube placement History of section Hx of section Social History Smoking Status: Never smoker alcohol intake: never substance use type: denies use current occupational status: unemployed Travel in the last 8 weeks: Inside the [place] household members: spouse housing: house current occupation: [employer] Other Medical History Have you received the Flu Vaccine for this season: No Have you received the Pneumonia Vaccine: No ROS Obtained: Yes Systems reviewed as appropriate & no additional complaints except as documented Physical Exam General General appearance: alert and in no apparent distress Head Head exam: atraumatic and normocephalic Eye Eye exam: Present PERRL and EOMI ENT ENT exam: Present mucous membranes moist Neck Neck exam: Present normal inspection Chest Chest inspection: Present normal inspection and symmetric chest wall rise Respiratory Respiratory exam: Absent respiratory distress Cardiovascular Cardiovascular exam: Present regular rate and normal rhythm Abdominal Exam Abdominal exam: Present soft; Absent tenderness, guarding or rebound Extremities Exam Extremities exam: Present normal inspection Neurological Exam Neurological exam: Present alert Psychiatric Psychiatric exam: Present normal affect Skin Skin exam: Present warm and dry Medical Decision Making Medical Records Screening: Per USPSTF and CDC recommendations, given the prevalence of disease in our region, it is our hospital?s policy to screen for HIV and viral Hepatitis for all patients aged 18 and over and those with ongoing risk factors. Maxime Inquiry Pt receiving controlled substance: No Vital Signs: 12/03/23 10:27 12/03/23 10:41 12/03/23 11:00 Temperature 98.4 F Temperature Source Oral Pulse Rate 118 H 89 Pulse Rate [Right] 95 H Respiratory Rate 18 Blood Pressure 113/82 115/69 Blood Pressure [Right Arm] 124/63 Blood Pressure Mean [Right Arm] 83 02 Sat by Pulse Oximetry 99 97 100 Oxygen Delivery Method Room Air 12/03/23 11:20 12/03/23 12:08 12/03/23 12:21 Temperature Temperature Source Pulse Rate 82 86 82 Pulse Rate [Right] Respiratory Rate Blood Pressure 107/72 L 128/83 113/70 Blood Pressure [Right Arm] Blood Pressure Mean [Right Arm] 02 Sat by Pulse Oximetry 100 100 100 Oxygen Delivery Method Room Air Room Air 12/03/23 12:40 12/03/23 13:00 12/03/23 13:20 Temperature Temperature Source Pulse Rate 81 83 76 Pulse Rate [Right] Respiratory Rate Blood Pressure 121/65 107/62 L 121/70 Blood Pressure [Right Arm] Blood Pressure Mean [Right Arm] 02 Sat by Pulse Oximetry 100 100 100 Oxygen Delivery Method Room Air 12/03/23 13:40 12/03/23 14:00 12/03/23 14:20 Temperature Temperature Source Pulse Rate 85 74 76 Pulse Rate [Right] Respiratory Rate Blood Pressure 118/67 109/66 L 114/70 Blood Pressure [Right Arm] Blood Pressure Mean [Right Arm] 02 Sat by Pulse Oximetry 99 100 100 Oxygen Delivery Method Room Air Lab Data Lab Results 12/03/23 10:30: Urine Color Yellow, Urine Appearance Clear, Urine pH 7.5, Ur Specific [place] 1.020, Urine Protein Negative, Urine Glucose (UA) Negative, Urine Ketones Negative, Urine Blood Negative, Urine Nitrate Negative, Urine Bilirubin Negative, Urine Urobilinogen 0.2, Ur Leukocyte Esterase Negative, Urine RBC None, Urine WBC None, Ur Squamous Epith Cells 3-5 12/03/23 12:08: WBC 7.6, RBC 4.58, Hgb 12.5, Hct 38.6, MCV 84.3, MCH 27.3, MCHC 32.3, RDW 15.5, Plt Count 286, MPV 9.2, Neut % (Auto) 66.3, Lymph % (Auto) 25.4, Garfield % (Auto) 6.8, Eos % (Auto) 1.0, Baso % (Auto) 0.5, Neut # (Auto) 5.0, Lymph # (Auto) 1.9, Garfield # (Auto) 0.5, Eos # (Auto) 0.1, Baso # (Auto) 0.0, Sodium 138, Potassium 3.8, Chloride 107, Carbon Dioxide 23, Anion Gap 11.8, BUN 11, Creatinine 0.70, Estimated Creat Clear 126, Estimated GFR 97, Est GFR ( Amer) 117, Glucose 98, Calcium 8.9, Total Bilirubin 0.6, AST 22, ALT 15, Alkaline Phosphatase 61, C-Reactive Protein 0.6, Total Protein 8.2, Albumin 4.6, Globulin 3.6 H, Albumin/Globulin Ratio 1.3, Lipase 71, HIV 1&2 Antibody Rapid Nonreactive 12/03/23 12:08 12/03/23 12:08 Orders (Tests/Meds): ED MEDICATIONS Generic Name Dose Route Start Last Admin Trade Name Freq PRN Reason Stop Dose Admin Sodium Chloride 10 ml 12/03/23 13:54 Sodium Chloride 0.9% 10ml Flush Syringe IV 01/02/24 13:53 NEEDED PRN Maintain IV Site Discontinued Medications Generic Name Dose Route Start Last Admin Trade Name Freq PRN Reason Stop Dose Admin Acetaminophen 1,000 mg 12/03/23 10:44 12/03/23 10:52 Acetaminophen 500mg Tab PO 12/03/23 10:45 1,000 mg ONCE ONE Administration ORDERS Category Date Time Status CBC w/Auto Diff [Complete Blood Count Auto Diff] Stat Lab 12/03/23 12:08 Completed CMP [Comprehensive Metabolic Panel] Stat Lab 12/03/23 12:08 Completed CRP [C-Reactive Protein] Stat Lab 12/03/23 12:08 Completed HIV (1&2) Antibody Rapid Stat Lab 12/03/23 12:08 Completed Hep C Ab with Reflex to RNA Stat Lab 12/03/23 12:08 Received Lipase Stat Lab 12/03/23 12:08 Completed UA [Urinalysis and Microscopic] Stat Lab 12/03/23 10:30 Completed US OB transvaginal Stat Ultrasound 12/03/23 10:46 Completed Medical Decision Narrative: In summary patient is a 33-year-old female with past medical history described above who presents emergency department for evaluation of lower abdominal pain in the setting of . Patient is hemodynamically stable and nontoxic-appearing upon arrival, afebrile. Differential includes related physiologic abdominal pain, urinary tract infection, bladder spasm, early miscarriage, ovarian torsion, among others. Workup will be conducted with hematologic labs, urinalysis, transvaginal ultrasound. Given that patient had hCG that was uptrending 2 days ago and patient wishes to defer this test at this time given that will not record changer in the emergency department will be deferred at this point. Initial inventions include Tylenol. Initial workup reviewed by me, hematologic labs are nonactionable, no significant leukocytosis, no [place] or critical electrolyte abnormality, lipase normal, CRP normal, urinalysis interpreted by me not consistent with infection. Transvaginal ultrasound shows single live intrauterine with estimated gestational age 5 weeks and 6 days, small subchorionic hemorrhage. Upon repeat evaluation patient had had resolution of her abdominal pain and now just has low back pain. She further states that she has had issues with chronic low back pain and she is unconcerned about this type of pain compared to the time she had earlier. Given that she has a benign abdominal exam, no leukocytosis, no elevated inflammatory marker, normal-sized ovaries and previous back pain of the same quality that is chronic I have no concern for significant abdominal pathology and shared decision-making discussion was had at bedside patient prefers to pursue outpatient management at this time was given multiple return precautions and verbalized understanding. Patient will follow-up with Dr. Justice this Monday. Critical Care Critical Care Time Critical Care Time: No
[2023-12-03] MEDS: ACETAMINOPHEN 500MG TAB 1000 MG PO (10:52)
--- NOTE | 2023-12-03 10:52 | PC.NURSE ---
Had RAD call in /s tech
[2023-12-03 10:57] LABS: Microscopic, Urine URINE MICROSCOPIC (MICROSCOPIC)
[2023-12-03 11:32] LABS: Appearance,Urine CLEAR (Clear); Bilirubin,Urine Negative (Negative); Blood, Urine Negative (Negative); Color,Urine YELLOW (Yellow); Glucose,Urine (UA) Negative (Negative); Ketones,Urine Negative (Negative); Leukocyte Esterase,Urine Negative (Negative); Nitrate,Urine Negative (Negative); PH,Urine 7.5 (5.0-8.5); Protein,Urine Negative (Negative); Urobilinogen,Urine 0.2 EU/dl (0.2)
[2023-12-03 12:32] LABS: Basophils % 0.5 % (0.1-2.0); Eosinophils # 0.1 K/mm3 (0.0-0.4); Hematocrit 38.6 % (37.0-47.0); Hemoglobin 12.5 g/dL (12.2-16.2); Lymphocytes # 1.9 K/mm3 (0.7-4.5); Lymphocytes % 25.4 % (10-50); Mean Corpuscular HGB Conc 32.3 g/dL (31.8-35.4); Mean Corpuscular Hemoglobin 27.3 pg (27.0-31.2); Mean Corpuscular Volume 84.3 fl (81-99); Mean Platelet Volume 9.2 fl (7.4-10.4); Monocytes # 0.5 K/mm3 (0.1-1.0); Monocytes % 6.8 % (1.7-9.3); Neutrophils % 66.3 % (37.0-80.0); Platelet Count 286 K/mm3 (142-424); Red Blood Count 4.58 M/mm3 (4.20-5.40); Red Cell Distribution Width 15.5 % (11.5-17.5); White Blood Count 7.6 K/mm3 (4.8-10.8)
[2023-12-03 12:50] LABS: Albumin Level 4.6 g/dl (3.5-5.0); Chloride 107 mmol/L (98-107); Sodium 138 mmol/L (136-145)
[2023-12-03 12:51] LABS: Potassium 3.8 mmoL/L (3.5-5.1)
[2023-12-03 12:53] LABS: Alanine Aminotransferase 15 U/L (12-78); Albumin/Globulin Ratio 1.3 (1.1-1.8); Alkaline Phosphatase 61 U/L (38-126); Anion Gap 11.8 mEq/L (5-15); Aspartate Amino Transferase 22 U/L (14-36); Bilirubin,Total 0.6 mg/dl (0.2-1.3); Blood Urea Nitrogen 11 mg/dl (7-17); Carbon Dioxide 23 mmol/L (22.0-30.0); Creatinine Clearance Estimated 126 mL/min (50-200); Estimated Glomerular Filt Rate 97 ml/min (>60); GFR (African American) 117 ML/MIN (>60); Globulin 3.6 g/dL (1.3-3.2); Lipase 71 U/L (23-300); Total Protein,Serum 8.2 g/dl (6.3-8.2)
[2023-12-03 12:54] LABS: Calcium 8.9 mg/dl (8.4-10.2); Glucose 98 mg/dl (74-100)
[2023-12-03 12:59] LABS: C-Reactive Protein 0.6 mg/L (0-4)
[2023-12-03 13:56] LABS: HIV (1&2) Antibody Rapid NONREACTIVE (NONREACTIVE)
[2023-12-05 05:10] LABS: HCV Ab Non Reactive (Non Reactive)
== END 2023-12-03 14:52 | disposition home or self-care (01) ==
PROVIDERS: Emergency Provider Emergency Medicine; PCP Nurse Practitioner Family
DX: Z34.90 Encounter for supervision of normal pregnancy, unspecified, unspecified trimester (principal); R10.31 Right lower quadrant pain; M54.50 Low back pain, unspecified
CPT/HCPCS: 76817; 80053; 81001; 83690; 85025; 86140; 86803; 87389; 99283

== ENCOUNTER 2023-12-05 15:30 | Outpatient (CLI) | payer OTHER, SELFPAY ==
[2023-12-07 21:26] LABS: Neisseria gonorrhoeae, NAA Negative (Negative)
== END 2023-12-05 23:59 | disposition home or self-care (01) ==
LOC: LAB.DROPOF 12-06 12:40
PROVIDERS: PCP Obstetrics & Gynecology; Visit Provider Obstetrics & Gynecology
DX: Z34.81 Encounter for supervision of other normal pregnancy, first trimester (principal)
CPT/HCPCS: 87086; 87491; 87591

== ENCOUNTER 2023-12-12 14:09 | Outpatient (CLI) | payer OTHER, SELFPAY ==
--- NOTE | 2023-12-12 14:10 | US_ITS ---
PROCEDURE: US OB <= 14 WEEKS FETUS CLINICAL INDICATION: Cramping in Early -Hx of Miscarriages COMPARISON: US US OB <= 14 WEEKS FETUS from 12/01/2023 US US OB TRANSVAGINAL from 12/03/2023 FINDINGS: Transvaginal sonographic images of the pelvis were obtained. The uterus is anteverted and there is a scar. From her last menstrual period she is 7weeks 3days. An intrauterine gestational sac is present with a pole with a crown-rump length of 0.79cm This correlates to a gestational age of 6weeks 6days. DUSTY 07/31/2024 heart tones are present with an FHR of 135bpm. Yolk sac is noted. The yolk sac measures 3.9mm. There appears to be fluid around the gestational sac which could represent a small subchorionic hemorrhage. The right ovary is seen and appears normal. The left ovary is seen and appears normal. There is no fluid in the cul-de-sac. IMPRESSION: 1. Viable fetus within the uterine cavity. There is heart rate activity seen. 2. [place]-rump length is 6 weeks 6 days, DUSTY 07/31/2024. 3. There is a small subchorionic hemorrhage still visible. 4. Both left and right ovaries are seen and appear normal. 5. No fluid in the cul-de-sac. Dictated by: Boby Ramon MD 12/12/2023 15:14 Boby Ramon MD in OV 12/12/2023 15:14
== END 2023-12-12 23:59 | disposition home or self-care (01) ==
LOC: RAD 14:10
PROVIDERS: PCP Nurse Practitioner Family; Visit Provider Obstetrics & Gynecology
DX: O26.891 Other specified pregnancy related conditions, first trimester (principal); R10.9 Unspecified abdominal pain; Z3A.01 Less than 8 weeks gestation of pregnancy; N96 Recurrent pregnancy loss; Z64.1 Problems related to multiparity; O36.80X0 Pregnancy with inconclusive fetal viability, not applicable or unspecified; Z87.59 Personal history of other complications of pregnancy, childbirth and the puerperium
CPT/HCPCS: 76801

== ENCOUNTER 2023-12-22 10:23 | Day surgery (SDC) | payer OTHER, SELFPAY ==
[2023-12-22] VITALS (9 sets, daily range): BP systolic 105–137; BP diastolic 61–97; PULSE 60–93; RESP 12–18; TEMP 36.1–36.7; O2SAT 96–100; BMI 26.7
[2023-12-22 10:48] LABS: Basophils # 0.1 K/mm3 (0-0.2); Basophils % 0.7 % (0.1-2.0); Eosinophils # 0.1 K/mm3 (0.0-0.4); Eosinophils % 1.6 % (0.1-12.0); Hematocrit 39.1 % (37.0-47.0); Hemoglobin 13.1 g/dL (12.2-16.2); Lymphocytes # 2.1 K/mm3 (0.7-4.5); Lymphocytes % 23.5 % (10-50); Mean Corpuscular HGB Conc 33.5 g/dL (31.8-35.4); Mean Corpuscular Hemoglobin 28.7 pg (27.0-31.2); Mean Corpuscular Volume 85.5 fl (81-99); Mean Platelet Volume 9.2 fl (7.4-10.4); Monocytes # 0.4 K/mm3 (0.1-1.0); Monocytes % 4.9 % (1.7-9.3); Neutrophils # 6.2 K/mm3 (1.8-7.8); Neutrophils % 69.4 % (37.0-80.0); Platelet Count 281 K/mm3 (142-424); Red Blood Count 4.57 M/mm3 (4.20-5.40); Red Cell Distribution Width 15.5 % (11.5-17.5); White Blood Count 8.9 K/mm3 (4.8-10.8)
[2023-12-22] MEDS: ACETAMINOPHEN 500MG TAB 1000 MG PO (11:22)
[2023-12-22] MEDS: DOXYCYCLINE HYCL 100 MG TABLET 200 MG PO (11:23)
[2023-12-22] MEDS: 0.9 % SODIUM CHLORIDE 1000ML 1,000 ML 25 ML IV (11:25)
[2023-12-22 11:53] LABS: Alanine Aminotransferase 13 U/L (12-78); Albumin Level 4.5 g/dl (3.5-5.0); Albumin/Globulin Ratio 1.5 (1.1-1.8); Alkaline Phosphatase 63 U/L (38-126); Aspartate Amino Transferase 21 U/L (14-36); Bilirubin,Total 0.7 mg/dl (0.2-1.3); Blood Urea Nitrogen 11 mg/dl (7-17); Calcium 9.1 mg/dl (8.4-10.2); Carbon Dioxide 23 mmol/L (22.0-30.0); Chloride 106 mmol/L (98-107); Creatinine Clearance Estimated 150 mL/min (50-200); Estimated Glomerular Filt Rate 116 ml/min (>60); GFR (African American) 140 ML/MIN (>60); Glucose 86 mg/dl (74-100); Sodium 139 mmol/L (136-145); Total Protein,Serum 7.5 g/dl (6.3-8.2)
--- NOTE | 2023-12-22 12:28 | EXP.ANES.CKL ---
[facility] Disclaimer: The information contained in this section may have been updated after the patient was seen, as this information can be updated by other users. Medical History Missed GERD (gastroesophageal reflux disease) Grand multipara History of recurrent miscarriages History of miscarriage, currently History of anemia Urinary tract infection History of gastroesophageal reflux (GERD) Endometriosis Dysmenorrhea Menorrhagia History of miscarriage History of fainting History of heavy periods Surgical History History of tympanostomy tube placement History of section Hx of section Family History (Updated 12/22/23 @ 11:10 by Risa Arora RN) Other Family history of diabetes mellitus type II Family history of myocardial infarction Social History Smoking Status: Never smoker alcohol intake: never substance use type: denies use current occupational status: unemployed Travel in the last 8 weeks: Inside the [facility] household members: spouse housing: house current occupation: [employer] Anesthesia Checklist Patient Identification Patient Identification: Verbal (Name & ) Structural Data Admitted From: Home Planned Operative Procedure/s: d/c NPO Status Verified Time NPO: 00:00 Additional verifications Anesthesia Reactions: No Hx Blood Transfusions: Yes Blood Transfusion Reaction: No Airway Assessment Mallampati Score:: Class II C-Spine Mobility Assessed: Yes TMJ Mobility Assessed: Yes Dentition: Good Dentition Neurological Assessment Level of Consciousness: Awake, Alert and Appropriate Anesthesia Plan Anesthesia Risk discussed: Yes Anesthesia Plan: Verified ASA Class: II Anesthesia Type: General
--- NOTE | 2023-12-22 12:39 | EXP.ANES.I ---
[facility] Anesthesia Record Part I Anesthesia Record I Intake, IV Amount: 1,200 Hydration: Adequate Estimated blood loss (mL): 25 Urine output (mL): 0 Blood Pressure: 129/77 SaO2: 98 Pulse Rate: 89 Airway Patency: Patent Respiratory Rate: 12 Temperature: 98 F Patient is:: Awake and Stable
[2023-12-22] MEDS: MORPHINE 2MG/ML SYRINGE 2 MG IV (12:45)
[2023-12-22] MEDS: MEPERIDINE 25MG/ML 1ML SYRINGE 25 MG IV (12:45)
--- NOTE | 2023-12-22 12:46 | EXP.OP.NOTE ---
Date of procedure: 12/22/23 Pre-op Diagnosis:: 1. Missed 2. History of recurrent SAB 3. Grand multipara 4. ABO RH: O positive Post-op Diagnosis:: 1. Missed 2. History of recurrent SAB 3. Grand multipara 4. ABO RH: O positive Procedure performed:: Victor Manuel Suction Dilation and curettage Surgeon:: Josefina Justice DO Grain Commodity Manager(s):: N/a SOLARIS ADMINISTRATOR:: Alex Fisher Anesthesia: GETA Estimated blood loss (mL): 25 Clinical Note:: Ms Whitney Presley is a 33 yo at 8w4d who presents to [facility] for scheduled procedure. She was seen in the office today for add on ob visit. She complained of abdominal pain. No vaginal bleeding. She went to a [facility] ultrasound on Monday and the child center assistant told her the gestational sac looked small. Baby was moving and FHR was 160 bpm per Whitney. She then went to Primary care in [place] yesterday, , for viability scan. The doctor in [place] performed an abdominal and transvaginal ultrasound and told her there was no heart beat or color flow through baby. Ultrasound in the office today demonstrated SIUP at 8w1d with no heart beat, no movement and no doppler color flow through baby. Yolk sac was faded and slightly broken. Gestational sac irregularly shaped and small. Decision was made to proceed with suction dilation and curettage. She last ate and drank yesterday evening. Discussed risks, benefits, alternatives expectations and possible complications of surgery. All questions addressed and answered. She voiced understanding of risks and possible complications of surgery. Consent form signed. Will send products of conception for chromosomal analysis and karyotyping. Operative findings:: 1. Uterus normal shape, about 8 week size, midposition. No adnexal masses palpated 2. Cervix appeared grossly normal Operative note:: Risks, benefits and alternatives were discussed with the patient. Risks include but are not limited to bleeding, infection, uterine perforation and VTE. Patient voiced understanding and agreed to proceed. She received Doxycycline 200 mg PO in preop. She was wheeled back to the operating room and placed under general anesthesia without difficulty. She was placed in dorsal lithotomy position and prepped and draped in the normal sterile fashion. Straight catheter was used to drain the bladder. A bimanual exam was performed. A weighted Auvard was placed in the vaginal vault. Single tooth tenaculum was placed on anterior lip of the cervix. Uterus sounded to 11. Sequential Markel dilators were used to dilate the cervical os. An 8 mm curved serbian suction curettage was advanced into the uterine cavity without difficulty and was used to suction contents of the uterus. Following removal of the products of conception, a medium sized sharp curette was advanced into the uterine cavity and was used to scrape the uterine colbert until a gritty texture was noted. At this time, the suction curette was advanced one more time to suction any remaining products of conception and blood. Instruments were removed from the vagina. Tenaculum site was noted to be slightly oozing. Silver nitrate stick x 1 applied to tenaculum site. Hemostasis was noted. Patient was awaken from anesthesia without difficulty. Products of conception will be sent to pathology as well as to an outside lab for chromosomal analysis. She was transported to recovery room in stable condition. Patient will be discharged home when awake and ambulating. She was also given postop instructions as well as instructions to follow-up in the office in 2 weeks or sooner if needed. Condition: stable Disposition: same day Specimens:: 1. Products of conception Complications:: None
--- NOTE | 2023-12-22 14:06 | P.PNANES_ITS ---
[facility] Anesthesia Record Part II Anesthesia Record Part II Discharge Time: 13:07 Destination: Surgical Day Care (OP Surgery) PACU nurse assessment reviewed?: Yes Patient Condition:: Good Anesthesia Complications:: None Swallowing reflex intact?: Yes Airway Patency: Patent Cyanosis?: No Blood Pressure: 118/97 SaO2: 99 Respiratory Rate: 18 Pulse Rate: 70 Temperature: 97 F Mental Status: Alert & Oriented Pain level:: 4 Nausea and/or vomitting:: None Intake, IV Amount: 0 Hydration: Adequate
== END 2023-12-22 13:35 | disposition home or self-care (01) ==
PROVIDERS: PCP Obstetrics & Gynecology; Visit Provider Obstetrics & Gynecology
PROC: (CPT 59820; principal; 2023-12-22 11:45)
DX: O02.1 Missed abortion (principal)
CPT/HCPCS: 59820; 36415; 80053; 85025; 86850; J1100; J1885; J2175; J2250; J2270; J2405; J3010; J7030

== ENCOUNTER 2023-12-24 11:22 | Outpatient (CLI) | payer OTHER, SELFPAY ==
[2023-12-24 12:24] LABS: HCG,Quantitative 2477 mIU/ml (0-5.42)
== END 2023-12-24 23:59 | disposition home or self-care (01) ==
LOC: LAB 11:24
PROVIDERS: PCP Nurse Practitioner Family; Visit Provider Obstetrics & Gynecology
DX: O02.1 Missed abortion (principal)
CPT/HCPCS: 36415; 84702

== ENCOUNTER 2023-12-26 14:07 | Outpatient (CLI) | payer OTHER, SELFPAY | END 2023-12-26 23:59 | disposition home or self-care (01) | LOC: LAB 14:09 | PROVIDERS: PCP Nurse Practitioner Family | DX: O02.1 Missed abortion (principal) | CPT/HCPCS: 36415; 84702 ==

== ENCOUNTER 2023-12-27 12:49 | Outpatient (CLI) | payer OTHER, SELFPAY ==
--- NOTE | 2023-12-27 12:50 | US_ITS ---
PROCEDURE: US TRANSVAGINAL CLINICAL INDICATION: recent D C for missed AB COMPARISON: US US OB <= 14 WEEKS FETUS from 12/01/2023 US US OB TRANSVAGINAL from 12/03/2023 US US OB <= 14 WEEKS FETUS from 12/12/2023 FINDINGS: Transvaginal sonographic images of the pelvis were obtained. UTERUS: 9.5cm x 7.0cmx 3.7 cm anteverted and bicornuate with a combined endometrial thickness of 3.9mm. There is no evidence of retained products of conception. There is a small amount of fluid seen within the endometrial canal. LEFT OVARY: 2.2cmx1.4cmx1.1cm with a volume of 1.8ml. RIGHT OVARY: 3.2cmx 2.1cmx1.4cm with a volume of 4.7ml. Both ovaries are seen and appear normal. Doppler flow to both ovaries are seen. There is trace fluid in the cul-de-sac. IMPRESSION: 1. Anteverted, bulky, bicornuate uterus slightly enlarged. The endometrium is thin and measures 3.9 mm. 2. There is no evidence of retained products of conception. There is a small amount of fluid within the endometrial canal. 3. There is hyperechoic fibrosis in the anterior aspect of the uterine scar. 4. Both ovaries are seen and appear normal. 5. There is a trace of fluid in the cul-de-sac. Dictated by: Boby Ramon MD 12/27/2023 15:52 Boby Ramon MD in [place] 12/27/2023 15:52
== END 2023-12-27 23:59 | disposition home or self-care (01) ==
LOC: RAD 12:50
PROVIDERS: PCP Nurse Practitioner Family; Visit Provider Obstetrics & Gynecology
DX: O02.1 Missed abortion (principal); G89.18 Other acute postprocedural pain
CPT/HCPCS: 76830

== ENCOUNTER 2023-12-30 11:35 | Outpatient (CLI) | payer OTHER, SELFPAY ==
[2023-12-30 11:57] LABS: Basophils # 0.1 K/mm3 (0-0.2); Basophils % 0.9 % (0.1-2.0); Eosinophils # 0.2 K/mm3 (0.0-0.4); Eosinophils % 2.6 % (0.1-12.0); Hematocrit 38.9 % (37.0-47.0); Hemoglobin 12.7 g/dL (12.2-16.2); Lymphocytes # 2.4 K/mm3 (0.7-4.5); Mean Corpuscular HGB Conc 32.7 g/dL (31.8-35.4); Mean Corpuscular Hemoglobin 28.4 pg (27.0-31.2); Mean Corpuscular Volume 86.7 fl (81-99); Mean Platelet Volume 9.2 fl (7.4-10.4); Monocytes # 0.4 K/mm3 (0.1-1.0); Monocytes % 5.6 % (1.7-9.3); Neutrophils # 4.2 K/mm3 (1.8-7.8); Neutrophils % 57.9 % (37.0-80.0); Platelet Count 242 K/mm3 (142-424); Red Blood Count 4.49 M/mm3 (4.20-5.40); Red Cell Distribution Width 14.9 % (11.5-17.5); White Blood Count 7.2 K/mm3 (4.8-10.8)
[2023-12-30 12:17] LABS: Albumin Level 4.6 g/dl (3.5-5.0); Chloride 105 mmol/L (98-107); Potassium 4.1 mmoL/L (3.5-5.1); Sodium 140 mmol/L (136-145)
[2023-12-30 12:19] LABS: Amylase 73 U/L (30-110); Blood Urea Nitrogen 18 mg/dl (7-17); Estimated Glomerular Filt Rate 97 ml/min (>60); GFR (African American) 117 ML/MIN (>60)
[2023-12-30 12:20] LABS: Alanine Aminotransferase 16 U/L (12-78); Albumin/Globulin Ratio 1.5 (1.1-1.8); Alkaline Phosphatase 51 U/L (38-126); Anion Gap 15.1 mEq/L (5-15); Aspartate Amino Transferase 21 U/L (14-36); Bilirubin,Total 0.7 mg/dl (0.2-1.3); Calcium 9.4 mg/dl (8.4-10.2); Carbon Dioxide 24 mmol/L (22.0-30.0); Glucose 76 mg/dl (74-100); Lipase 104 U/L (23-300); Magnesium 1.9 mg/dl (1.6-2.3); Total Protein,Serum 7.6 g/dl (6.3-8.2)
[2023-12-30 12:37] LABS: HCG,Quantitative 211 mIU/ml (0-5.42)
== END 2023-12-30 23:59 | disposition home or self-care (01) ==
PROVIDERS: PCP Nurse Practitioner Family; Visit Provider Obstetrics & Gynecology
DX: R10.9 Unspecified abdominal pain (principal)
CPT/HCPCS: 36415; 80053; 82150; 83690; 83735; 84702; 85025

== ENCOUNTER 2024-01-03 16:50 | Outpatient (CLI) | payer OTHER, SELFPAY ==
[2024-01-03 17:51] LABS: HCG,Quantitative 58 mIU/ml (0-5.42)
== END 2024-01-03 23:59 | disposition home or self-care (01) ==
LOC: LAB 16:51
PROVIDERS: PCP Nurse Practitioner Family; Visit Provider Obstetrics & Gynecology
DX: O02.1 Missed abortion (principal)
CPT/HCPCS: 36415; 84702

== ENCOUNTER 2024-01-09 07:50 | Outpatient (CLI) | payer OTHER, SELFPAY ==
[2024-01-09 11:14] LABS: HCG,Quantitative 12 mIU/ml (0-5.42)
== END 2024-01-09 23:59 | disposition home or self-care (01) ==
PROVIDERS: PCP Nurse Practitioner Family; Visit Provider Obstetrics & Gynecology
DX: O02.1 Missed abortion (principal)
CPT/HCPCS: 36415; 84702

== ENCOUNTER 2024-01-10 21:49 | Emergency (ER) | payer OTHER, SELFPAY ==
[2024-01-10 22:07] VITALS: BP 110/73; PULSE 65; RESP 20; TEMP 36.8; O2SAT 99
--- NOTE | 2024-01-10 22:33 | HMH.EDGENADL ---
Discharge Plan Disposition Patient Disposition: Home, Self-Care Chief Complaint: Eye Problems Prescriptions Prescriptions: No Action buspirone 10 mg tablet 10 mg PO BID Qty: 60 12RF Rx Instructions: Please take 1/2 tablet p.o. nightly x 5 to 7 days and then 1 tablet p.o. nightly x 5 to 7 days and then 1 tablet p.o. twice daily thereafter Gimoti 15 mg/spray spray with pump 1 spray intranasal QID Qty: 9.8 3RF Rx Instructions: administer into ONE nostril 30 minutes before each meal and at bedtime Referrals Follow up/Referrals: Norma Friedman APRN [Primary Care Provider] - See instructions Activity Restrictions/Add. Instructions Additional Instructions/Restrictions: Cyclogyl and erythromycin ointment 3 times daily for the next 5 days as needed. Call your family doctor to establish care for this visit to the emergency department and schedule follow-up within 48 hours to ensure improvement. If you have any worsening of your condition or any other concerning signs or symptoms, return to the emergency department or your primary care doctor for further evaluation. Clinical Impressions Clinical Impression: Subconjunctival hemorrhage, Corneal abrasion, Traumatic iritis Print Language Print Language: Czech Discharge ED Provider: Nehemiah Begum General Adult HPI General Chief complaint: Eye Problems Stated complaint: AO 01/09 1850 rock hit left eye bleeding/pain Time Seen by Provider: 01/10/24 22:11 Mode of Arrival: Ambulatory Source of Information: Patient Limitations: No Limitations Description of Symptoms (Recalled from ER Triage Doc. by RN): eye injury Pt states she was weedeating and a rock flew into her left eye. Small amount of blood noted in the sclera No hyphema noted. Pt states she is light sensative and pain is worsening with associated nausea History of Present Illness HPI narrative: Please note that above description of symptoms, in this electronic medical record under categorization of recalled from ER triage doctor by RN are reflective of an initial nursing assessment, however, is not reflective of my full history and physical exam that was personally taken and clarified. Consequentially, this preceding description of symptoms, which may include the patient's categorized chief complaint in the EMR, do not reflect my personal clinical impression, and the ultimate description of history of present illness and patient stated complaints should be deferred to this section of the note. Unless stated otherwise or congruent with this section of the note, additional signs, symptoms, or incongruence should be interpreted as inaccurate with my clinical impression. Related Data Previous Rx's ?Medication ?Instructions ?Recorded buspirone 10 mg tablet 10 mg PO BID #60 tabs 01/09/24 metoclopramide HCl 15 mg/spray 1 spray intranasal QID #9.8 mL 01/09/24 nasal spray with pump (Gimoti) Allergies Allergy/AdvReac Type Severity Reaction Status Date / Time No Known Allergies Allergy Verified 01/10/24 11:27 [facility] Disclaimer: The information contained in this section may have been updated after the patient was seen, as this information can be updated by other users. Medical History Missed GERD (gastroesophageal reflux disease) Grand multipara History of recurrent miscarriages History of miscarriage, currently History of anemia Urinary tract infection History of gastroesophageal reflux (GERD) Endometriosis Clinically diagnosed Dysmenorrhea Menorrhagia History of miscarriage History of fainting History of heavy periods Surgical History History of tympanostomy tube placement History of section Hx of section Family History Other Family history of diabetes mellitus type II Family history of myocardial infarction Social History Smoking Status: Current every day smoker alcohol intake: never substance use type: denies use current occupational status: unemployed Travel in the last 8 weeks: Inside the [place] household members: spouse housing: house current occupation: [employer] Other Medical History Have you received the Flu Vaccine for this season: No Have you received the Pneumonia Vaccine: No ROS Obtained: Yes All systems reviewed & no additional complaints except as documented Physical Exam General General appearance: alert Head Head exam: atraumatic and normocephalic Eye Eye exam: Present PERRL, EOMI and other (Subconjunctival hemorrhage medially in the left eye hemorrhage. No evidence of hyphema, proptosis, entrapment, pupillary changes, cellulitic change, obvious foreign body, or otherwise irregular ocular findings. Fluorescein exam small corneal defect overlying conjunctival hemorrhage. 10 mmHg. ) Neck Neck exam: Present normal inspection, full ROM and trachea midline Respiratory Respiratory exam: Absent respiratory distress, wheezes, stridor, accessory muscle use or prolonged expiratory phase Cardiovascular Cardiovascular exam: Present other (Pulses equal symmetric in upper and lower extremities) Abdominal Exam Abdominal exam: Present soft; Absent distention, tenderness or pulsatile mass Extremities Exam Extremities exam: Absent edema Neurological Exam Neurological exam: Present alert, oriented X3 and CN II-XII intact; Absent motor sensory deficit Skin Skin exam: Present warm and dry; Absent diaphoresis or erythema Medical Decision Making Medical Records Medical records reviewed: Yes I reviewed the patient's medical records. Screening: Per USPSTF and CDC recommendations, given the prevalence of disease in our region, it is our hospital?s policy to screen for HIV and viral Hepatitis for all patients aged 18 and over and those with ongoing risk factors. Maxime Inquiry Pt receiving controlled substance: No Maxime was queried for this patient: No Vital Signs: 01/10/24 22:07 Temperature 98.2 F Temperature Source Oral Pulse Rate [Right Brachial] 65 Respiratory Rate 20 Blood Pressure [Right Arm] 110/73 Blood Pressure Mean [Right Arm] 85 Blood Pressure Source [Right Arm] Automatic Cuff Blood Pressure Position [Right Arm] Sitting 02 Sat by Pulse Oximetry 99 Oxygen Delivery Method Room Air Medical Decision Narrative: 33-year-old female up-to-date on tetanus presenting with eye injury. Patient states that she was using her weedeater prior to arrival. A rock kicked up and hit her in the eye she was not wearing safety goggles. Up-to-date on tetanus. Having light sensitivity, migraine-like symptoms, nausea. Vision is intact. No other trauma sustained.. History was obtained via conversation with patient. On arrival, patient hemodynamically stable, alert, oriented x4, appropriate, GCS 15, moving all extremities spontaneously, pupils equal and reactive to light. Full physical exam performed and significant for Subconjunctival hemorrhage medially in the left eye hemorrhage. No evidence of hyphema, proptosis, entrapment, pupillary changes, cellulitic change, obvious foreign body, or otherwise irregular ocular findings. Fluorescein exam small corneal defect overlying conjunctival hemorrhage. 10 mmHg. Visual acuity intact, per patient. Differential includes abrasion, foreign body, among others. Patient given topical tetracaine with improvement of discomfort on the medial aspect of her eye, but still having light sensitivity. Cyclogyl was administered. Complete resolution of symptoms with these 2 drops. Erythromycin ointment given for corneal abrasion and patient deemed appropriate for outpatient management. Because patient at baseline without signs or symptoms of clinical decompensation, deemed appropriate for discharge. Results were relayed to patient who voiced understanding and were agreeable to outpatient management and follow up. I discussed my clinical impression with patient and answered all questions. At this time, the evidence for any other entities in the differential is insufficient to warrant any further testing or ED observation. This was explained as well. Advisory was given that persistent or worsening symptoms require further evaluation. I confirmed the understanding of this discussion. Molder Machine disclaimer Much of this encounter note is an electronic muffle operator spoken language to printed text. Electronic muffle operator of the spoken language may permit errors. Although I have reviewed the note, some errors may still exist. Critical Care Critical Care Time Critical Care Time: No
[2024-01-10 22:39] VITALS: BP 120/72; PULSE 72; RESP 18; TEMP 36.6; O2SAT 98
== END 2024-01-10 22:40 | disposition home or self-care (01) ==
PROVIDERS: Emergency Provider Emergency Medicine; PCP Nurse Practitioner Family
DX: H20.9 Unspecified iridocyclitis (principal); H11.30 Conjunctival hemorrhage, unspecified eye; S05.00XA Injury of conjunctiva and corneal abrasion without foreign body, unspecified eye, initial encounter; H57.12 Ocular pain, left eye; H53.149 Visual discomfort, unspecified; R11.0 Nausea; W20.8XXA Other cause of strike by thrown, projected or falling object, initial encounter; Y93.89 Activity, other specified; Y92.9 Unspecified place or not applicable
CPT/HCPCS: 99283

== ENCOUNTER 2024-01-11 10:30 | Outpatient (CLI) | payer OTHER, SELFPAY ==
--- NOTE | 2024-01-11 10:31 | US_ITS ---
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 UTERUS: 8.9cm x 6cmx 5.1cm anteverted with a combined endometrial thickness of 10.2mm. The endometrium is trilaminar. A scar is present The shape of the endometrium appears arcuate LEFT OVARY: 2.4cmx1.2cmx1.3cm with a volume of 1.8ml. There are several small peripheral follicles RIGHT OVARY: 2.9cmx 2.6cmx2.7cm with a volume of 10.7ml. There is a follicle measuring 2.0 cm x 2.2 cm Both ovaries are seen and appear normal. Doppler flow to both ovaries are seen. There is no fluid in the cul-de-sac. IMPRESSION: 1. Anteverted uterus normal in shape and size. The endometrium has an arcuate shape. 2. Both ovaries are seen and appear normal. There is a 2.2 cm follicle in the right ovary. The left ovary has multiple small follicles. 3. The fluid in the cul-de-sac. Dictated by: Boby Ramon MD 01/12/2024 06:28 Boby Ramon MD in OV 01/12/2024 06:28
== END 2024-01-11 23:59 | disposition home or self-care (01) ==
LOC: RAD 10:31
PROVIDERS: PCP Nurse Practitioner Family; Visit Provider Obstetrics & Gynecology
DX: N96 Recurrent pregnancy loss (principal)
CPT/HCPCS: 76830

== ENCOUNTER 2024-01-15 13:16 | Outpatient (CLI) | payer OTHER, SELFPAY ==
[2024-01-15 15:14] LABS: HCG,Quantitative 3 mIU/ml (0-5.42)
== END 2024-01-15 23:59 | disposition home or self-care (01) ==
LOC: LAB 13:17
PROVIDERS: PCP Nurse Practitioner Family; Visit Provider Obstetrics & Gynecology
DX: O02.1 Missed abortion (principal)
CPT/HCPCS: 36415; 84702

== ENCOUNTER 2024-01-23 08:06 | Outpatient (CLI) | payer OTHER, SELFPAY ==
[2024-01-23 10:26] LABS: HCG,Quantitative < 2 mIU/ml (0-5.42)
== END 2024-01-23 23:59 | disposition home or self-care (01) ==
LOC: LAB 08:08
PROVIDERS: PCP Nurse Practitioner Family; Visit Provider Obstetrics & Gynecology
DX: O02.1 Missed abortion (principal)
CPT/HCPCS: 36415; 84702

== ENCOUNTER 2024-01-24 19:26 | Emergency (ER) | payer OTHER, SELFPAY ==
[2024-01-24 19:28] VITALS: BP 139/96; PULSE 80; RESP 14; TEMP 37.4; O2SAT 98; BMI 26.1
--- NOTE | 2024-01-24 19:44 | ED_ITS ---
Discharge Plan Disposition Patient Disposition: Home, Self-Care Prescriptions Prescriptions: New ondansetron 4 mg tablet,disintegrating 4 mg PO Q6H PRN (Reason: nausea and vomiting) Qty: 14 0RF No Action buspirone 10 mg tablet 10 mg PO BID Qty: 60 12RF Rx Instructions: Please take 1/2 tablet p.o. nightly x 5 to 7 days and then 1 tablet p.o. nightly x 5 to 7 days and then 1 tablet p.o. twice daily thereafter Gimoti 15 mg/spray spray with pump 1 spray intranasal QID Qty: 9.8 3RF Rx Instructions: administer into ONE nostril 30 minutes before each meal and at bedtime Referrals Follow up/Referrals: Norma Friedman APRN [Primary Care Provider] - See instructions Activity Restrictions/Add. Instructions Additional Instructions/Restrictions: Take Tylenol 1000 mg every 6 hours and ibuprofen 4 to 600 mg every 6 hours for pain. Follow-up with [facility]. Please return the emerged part with any new, concerning, or worsening symptoms. Take Zofran as needed for nausea and vomiting. Clinical Impressions Clinical Impression: Lower abdominal pain Instructions Patient Instructions: DI for Acute Abdominal Pain Print Language Print Language: Russian Discharge ED Provider: Yuriy Christie General Adult HPI General Chief complaint: Abdominal Pain Stated complaint: pelvic pain , right ov pain Time Seen by Provider: 01/24/24 19:37 Mode of Arrival: Ambulatory Source of Information: Patient Limitations: No Limitations History of Present Illness HPI narrative: This is a 33-year-old female who presents with concern for pelvic pain. She is a G8, P5 and had a 9-week miscarriage about 1 month ago. Was complicated and ultimately required a D&C. States that she has had some vaginal spotting since then that has not changed, however had worsening uterine pain this morning that then radiated to her right lower quadrant. States that all of the pain is localized to her pelvis. Denies any change or worsening of vaginal bleeding. Also reports nausea and vomiting in the setting of the pain. Related Data Previous Rx's ?Medication ?Instructions ?Recorded buspirone 10 mg tablet 10 mg PO BID #60 tabs 01/09/24 metoclopramide HCl 15 mg/spray 1 spray intranasal QID #9.8 mL 01/09/24 nasal spray with pump (Gimoti) ondansetron 4 mg disintegrating 4 mg PO Q6H PRN nausea and 01/24/24 tablet vomiting #14 tabs Allergies Allergy/AdvReac Type Severity Reaction Status Date / Time No Known Allergies Allergy Verified 01/10/24 11:27 [facility] Disclaimer: The information contained in this section may have been updated after the patient was seen, as this information can be updated by other users. Medical History Missed GERD (gastroesophageal reflux disease) Grand multipara History of recurrent miscarriages History of miscarriage, currently History of anemia Urinary tract infection History of gastroesophageal reflux (GERD) Endometriosis Clinically diagnosed Dysmenorrhea Menorrhagia History of miscarriage History of fainting History of heavy periods Surgical History History of tympanostomy tube placement History of section Hx of section Family History Other Family history of diabetes mellitus type II Family history of myocardial infarction 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 Have you lived/traveled outside US in past 30 days?: No Contact w/someone who lives/traveled outside US past 30 days?: No Exposure to someone with infectious disease in past 14 days?: No Do you have a fever (greater than 100.4 F or 38 C)?: No Have you tested positive for COVID-19: No Exposed to someone with COVID-19 in past 14 days?: No Do you have a sore throat?: No Do you have a cough?: No Do you have any weakness?: No Do you have any diarrhea?: No Are you experiencing any unusual bleeding?: No Do you have any muscle aches/pain?: No Do you have any abdominal pain?: No Are you experiencing loss of taste or smell?: No Other Medical History Have you received the Flu Vaccine for this season: No Have you received the Pneumonia Vaccine: No ROS Obtained: Yes All systems reviewed & no additional complaints except as documented Physical Exam General General appearance: alert and in no apparent distress Eye Eye exam: Present normal appearance, PERRL and EOMI Respiratory Respiratory exam: Present normal lung sounds bilaterally; Absent respiratory distress Cardiovascular Cardiovascular exam: Present regular rate and normal rhythm Abdominal Exam Abdominal exam: Present soft, distention and tenderness (Lower abdomen); Absent guarding or rebound Extremities Exam Extremities exam: Present normal inspection Neurological Exam Neurological exam: Present alert and oriented X3 Skin Skin exam: Present warm and dry Medical Decision Making Medical Records Medical records reviewed: Yes I reviewed the patient's medical records. Screening: Per USPSTF and CDC recommendations, given the prevalence of disease in our region, it is our hospital?s policy to screen for HIV and viral Hepatitis for all patients aged 18 and over and those with ongoing risk factors. Maxime Inquiry Pt receiving controlled substance: No Vital Signs: 01/24/24 19:28 01/24/24 21:08 Temperature 99.3 F Temperature Source Oral Pulse Rate 68 Pulse Rate [Right Radial] 80 Respiratory Rate 14 Blood Pressure 99/66 L Blood Pressure [Right Arm] 139/96 H Blood Pressure Mean [Right Arm] 110 Blood Pressure Source [Right Arm] Automatic Cuff Blood Pressure Position [Right Arm] Supine 02 Sat by Pulse Oximetry 98 97 Oxygen Delivery Method Room Air Lab Data Lab Results 01/24/24 19:42: Urine Color Yellow, Urine Appearance Clear, Urine pH 8.0, Ur Specific [place] 1.015, Urine Protein Trace, Urine Glucose (UA) Negative, Urine Ketones Negative, Urine Blood 2+ A, Urine Nitrate Negative, Urine Bilirubin Negative, Urine Urobilinogen 0.2, Ur Leukocyte Esterase Negative, Urine RBC Occasional, Urine WBC Occasional, Ur Squamous Epith Cells 10-20, Amorphous Sediment 4+, Urine Bacteria 1+ 01/24/24 19:47: WBC 11.1 H, RBC 4.44, Hgb 12.2, Hct 38.7, MCV 87.2, MCH 27.5, M CHC 31.5 L, RDW 14.1, Plt Count 300, MPV 12.5 H, Neut % (Auto) 61.2, Lymph % (Auto) 29.6, [place] % (Auto) 7.3, Eos % (Auto) 1.3, Baso % (Auto) 0.4, Neut # (Auto) 6.8, Lymph # (Auto) 3.3, [place] # (Auto) 0.8, Eos # (Auto) 0.2, Baso # (Auto) 0.1, Sodium 141, Potassium 3.7, Chloride 102, Carbon Dioxide 32 H, Anion Gap 10.7, BUN 20 H, Creatinine 0.70, Estimated Creat Clear 126, Estimated GFR 97, Est GFR ( Amer) 117, Glucose 84, Calcium 9.2, Total Bilirubin 0.4, A ST 42 H, ALT 21, Alkaline Phosphatase 63, Total Protein 7.8, Albumin 4.6, Globulin 3.2, Albumin/Globulin Ratio 1.4, Lipase 125, HCG, Quant < 2 01/24/24 21:28: Lactate 0.8 01/24/24 19:47 01/24/24 19:47 Orders (Tests/Meds): ED MEDICATIONS Discontinued Medications Generic Name Dose Route Start Last Admin Trade Name Freq PRN Reason Stop Dose Admin Hydromorphone HCl 0.5 mg 01/24/24 19:46 01/24/24 19:55 Hydromorphone 2mg/Ml Syringe IM 01/24/24 19:47 0.5 mg ONCE ONE Administration Iopamidol 75 ml 01/24/24 21:55 01/24/24 21:58 Iopamidol-370 (76%);100ml Bottle IV 01/24/24 21:56 75 ml ONCE ONE Administration Ketorolac Tromethamine 15 mg 01/24/24 20:51 01/24/24 21:05 Ketorolac 30mg/Ml Vial IV 01/24/24 20:52 15 mg ONCE ONE Administration Ondansetron HCl 4 mg 01/24/24 19:46 01/24/24 19:54 Ondansetron 4mg/2ml Vial IV 01/24/24 19:47 4 mg ONCE ONE Administration Ondansetron HCl 4 mg 01/24/24 21:15 01/24/24 21:18 Ondansetron 4mg/2ml Vial IV 01/24/24 21:16 4 mg ONCE ONE Administration Sodium Chloride 10 ml 01/24/24 21:55 01/24/24 21:58 Sodium Chloride 0.9% 10ml Syr (Rad Only) IV 01/24/24 21:56 10 ml ONCE ONE Administration ORDERS Category Date Time Status CT abdomen pelvis w con Stat Cat Scan 01/24/24 21:42 Completed US transvaginal Stat Exams 01/24/24 19:45 Completed Beta HCG, Quant [HCG,Quantitative] Stat Lab 01/24/24 19:47 Completed CBC w/Auto Diff [Complete Blood Count Auto Diff] Stat Lab 01/24/24 19:47 Completed CMP [Comprehensive Metabolic Panel] Stat Lab 01/24/24 19:47 Completed Lactic Acid Stat Lab 01/24/24 21:28 Completed Lipase Stat Lab 01/24/24 19:47 Completed Urinalysis and Microscopic Stat Lab 01/24/24 19:42 Completed Medical Decision Narrative: In summary, this 33-year-old female G8, P5 with recent miscarriage requiring D&C 1 month presents to the emergency department today with pelvic pain. On initial evaluation patient is afebrile, hemodynamically stable, nontoxic-appearing. Differential diagnosis includes but is not limited to ectopic , retained products of conception, miscarriage, ovarian torsion, appendicitis. Based on these concerns, I ordered CBC, CMP, lipase, lactate, urinalysis, transvaginal ultrasound. Patient received Dilaudid and Zofran for treatment. Labs personally reviewed demonstrate white blood cell count of 11.1, unremarkable CMP, normal lactate, normal lipase, undetectable quantitative beta- hCG, no evidence of UTI on urinalysis. Transvaginal ultrasound independently interpreted by me, revealing of large right-sided ovarian cyst. No evidence of torsion. Small amount of free pelvic fluid. Suspect ruptured ovarian cyst is the most likely etiology for her symptoms. On reevaluation, the patient had persistence of mild pain. She stated that she was concerned for other acute pathology such as appendicitis. Ordered CT abdomen pelvis with IV contrast which was also independently interpreted by me, revealing no other acute intra-abdominal pathology and redemonstrated ovarian cyst. Considered hospitalization, however on reevaluation, patient was tolerating oral intake without difficulty and pain moderately controlled. She is to follow-up with [facility]. Critical Care Critical Care Time Critical Care Time: No
--- NOTE | 2024-01-24 19:45 | US_ITS ---
PROCEDURE INFORMATION: Exam: US Pelvis, Transvaginal, Non-Obstetric, US Duplex Artery and Vein of the Reproductive Organs, Complete Exam date and time: 01/24/2024 8:19 PM Age: 33 years old Clinical indication: Pelvic pain; Additional info: R/O ovaria torsion, R sided pelvic pain, recent dc TECHNIQUE: Imaging protocol: Real-time transvaginal pelvic (non-obstetric) ultrasound with image documentation. Transvaginal imaging was used for better evaluation of the endometrium, adnexa, and/or cervix. Real-time duplex ultrasound scan of the arterial and venous flow of the abdominal and/or reproductive organs with B-mode, color Doppler flow and spectral waveform analysis with image documentation. Exam focused on the region of clinical concern. Complete exam. Duplex exam was performed to evaluate for vascular conditions. COMPARISON: No relevant prior studies available. FINDINGS: Uterus: Measures approximately 9.5 x 4.1 x 5.3 cm. Endometrial stripe thickness: Endometrial thickness is approximately 3 mm. Right ovary/adnexa: Measures approximately 65.8 mL. Simple anechoic unilocular functional cyst/follicle without septations, debris or mural nodularity measuring 4.4 x 5.0 x 4.6 cm. Left ovary/adnexa: Measures approximately 3.5 mL. Multiple small anechoic follicles. Urinary bladder: NA Intraperitoneal space: No discernible adnexal mass or abnormality. Small amount of free fluid within the pelvis. Other findings: Doppler examination of the ovaries with pulsed wave and color images was performed which demonstrate arterial/venous waveforms within normal limits. IMPRESSION: 1. Enlarged RIGHT ovary demonstrating anechoic unilocular functional cyst/follicle. 2. Normal uterus, LEFT ovary with both ovaries demonstrating blood flow on Doppler sonogram.
[2024-01-24 19:50] LABS: Microscopic, Urine URINE MICROSCOPIC (MICROSCOPIC)
[2024-01-24] MEDS: ONDANSETRON 4MG/2ML VIAL 4 MG IV ×2 (19:54→21:18)
[2024-01-24] MEDS: HYDROMORPHONE 2MG/ML SYRINGE 0.5 MG IM (19:55)
[2024-01-24 20:00] LABS: Appearance,Urine CLEAR (Clear); Bilirubin,Urine Negative (Negative); Blood, Urine 2+ (Negative); Color,Urine YELLOW (Yellow); Glucose,Urine (UA) Negative (Negative); Ketones,Urine Negative (Negative); Leukocyte Esterase,Urine Negative (Negative); Nitrate,Urine Negative (Negative); Protein,Urine TRACE (Negative); Specific Gravity, Urine 1.015 (1.005-1.030); Urobilinogen,Urine 0.2 EU/dl (0.2)
[2024-01-24 20:03] LABS: Alanine Aminotransferase 21 U/L (12-78); Albumin Level 4.6 g/dl (3.5-5.0); Albumin/Globulin Ratio 1.4 (1.1-1.8); Alkaline Phosphatase 63 U/L (38-126); Anion Gap 10.7 mEq/L (5-15); Aspartate Amino Transferase 42 U/L (14-36); Bilirubin,Total 0.4 mg/dl (0.2-1.3); Blood Urea Nitrogen 20 mg/dl (7-17); Calcium 9.2 mg/dl (8.4-10.2); Carbon Dioxide 32 mmol/L (22.0-30.0); Chloride 102 mmol/L (98-107); Creatinine Clearance Estimated 126 mL/min (50-200); Estimated Glomerular Filt Rate 97 ml/min (>60); GFR (African American) 117 ML/MIN (>60); Globulin 3.2 g/dL (1.3-3.2); Glucose 84 mg/dl (74-100); Lipase 125 U/L (23-300); Potassium 3.7 mmoL/L (3.5-5.1); Sodium 141 mmol/L (136-145); Total Protein,Serum 7.8 g/dl (6.3-8.2)
[2024-01-24 20:11] LABS: Basophils % 0.4 % (0.1-2.0); Eosinophils % 1.3 % (0.1-12.0); Hematocrit 38.7 % (37.0-47.0); Hemoglobin 12.2 g/dL (12.2-16.2); Lymphocytes # 3.3 K/mm3 (0.7-4.5); Lymphocytes % 29.6 % (10-50); Mean Corpuscular HGB Conc 31.5 g/dL (31.8-35.4); Mean Corpuscular Hemoglobin 27.5 pg (27.0-31.2); Mean Corpuscular Volume 87.2 fl (81-99); Mean Platelet Volume 12.5 fl (7.4-10.4); Monocytes # 0.8 K/mm3 (0.1-1.0); Monocytes % 7.3 % (1.7-9.3); Neutrophils # 6.8 K/mm3 (1.8-7.8); Neutrophils % 61.2 % (37.0-80.0); Platelet Count 300 K/mm3 (142-424); Red Blood Count 4.44 M/mm3 (4.20-5.40); Red Cell Distribution Width 14.1 % (11.5-17.5); White Blood Count 11.1 K/mm3 (4.8-10.8)
[2024-01-24 20:12] LABS: Basophils # 0.1 K/mm3 (0-0.2); Eosinophils # 0.2 K/mm3 (0.0-0.4)
[2024-01-24 20:21] LABS: HCG,Quantitative < 2 mIU/ml (0-5.42)
[2024-01-24 20:55] LABS: Amorphous Sediment,Urine 4+ /lpf; Bacteria,Urine 1+ /lpf; RBC,Urine Occasional #/hpf (0-3); WBC,Urine Occasional #/hpf (0-3)
[2024-01-24] MEDS: KETOROLAC 30MG/ML VIAL 15 MG IV (21:05)
[2024-01-24 21:08] VITALS: BP 99/66; PULSE 68; O2SAT 97
--- NOTE | 2024-01-24 21:16 | PC.NURSE ---
Abdomen soft and + bowel sounds x4. Skin pink warm and dry REsp full and easy Speech clear and appropriate. Abdomen tender to palpation in lower quadrants
[2024-01-24 21:42] LABS: Lactic Acid 0.8 mmol/L (0.7-2.1)
--- NOTE | 2024-01-24 21:42 | CT_ITS ---
PROCEDURE INFORMATION: Exam: CT Abdomen And Pelvis With Contrast Exam date and time: 01/24/2024 9:52 PM Age: 33 years old Clinical indication: Abdominal pain; Additional info: Lower abdominal pain TECHNIQUE: Imaging protocol: Computed tomography of the abdomen and pelvis with contrast. Radiation optimization: All CT scans at this facility use at least one of these dose optimization techniques: automated exposure control; mA and/or kV adjustment per patient size (includes targeted exams where dose is matched to clinical indication); or iterative reconstruction. Contrast material: ISOVUE; Contrast volume: 75 ml; Contrast route: IV; COMPARISON: 1. CR XR HIP LT 2-3V W/PELVIS 06/19/2023 9:42 AM 2. US TRANSVAGINAL 01/24/2024 8:19 PM FINDINGS: Lungs: Lung bases are clear. Diaphragm: Small hiatal hernia. Liver: Normal. No mass. Gallbladder and biliary ducts: Normal. No calcified stones. No ductal dilation. Pancreas: Normal. No ductal dilation. Spleen: Normal. No splenomegaly. Adrenal glands: Normal. No mass. Kidneys and ureters: Normal. No hydronephrosis. Stomach and bowel: Unremarkable. No obstruction. No mucosal thickening. Appendix: Appendix is normal. No evidence of appendicitis. Intraperitoneal space: Unremarkable. No free air. No significant fluid collection. Vasculature: Unremarkable. No abdominal aortic aneurysm. Lymph nodes: Unremarkable. No enlarged lymph nodes. Urinary bladder: Unremarkable as visualized. Reproductive: A 5 cm simple appearing cyst noted in the right ovary that corresponds to the dominant cystic lesion on ultrasound. A 2.6 cm simple appearing cyst in the left ovary likely physiologic. Bones/joints: Unremarkable. No acute fracture. Soft tissues: Unremarkable. IMPRESSION: 1. Bilateral ovarian cysts measuring 5 cm on the right and 2.6 cm on the left. 2. No other acute findings.
[2024-01-24] MEDS: IOPAMIDOL-370 (76%);100ML BOTTLE 75 ML IV (21:58)
[2024-01-24] MEDS: SODIUM CHLORIDE 0.9% 10ML SYR (RAD ONLY) 10 ML IV (21:58)
--- NOTE | 2024-01-24 22:39 | PC.NURSE ---
read time 80 to 90 minutes, radiology will call and attempt to have it read sooner
[2024-01-24 23:23] VITALS: BP 119/76; PULSE 65; RESP 20; TEMP 37.2; O2SAT 98
== END 2024-01-24 23:31 | disposition home or self-care (01) ==
PROVIDERS: Emergency Provider Student in an Organized Health Care Education/Training Program; PCP Nurse Practitioner Family
DX: R10.31 Right lower quadrant pain (principal)
CPT/HCPCS: 74177; 76830; 80053; 81001; 83605; 83690; 84702; 85025; 96372; 96374; 96375; 99285; J1171; J1885; J2405; Q9967

== ENCOUNTER 2024-01-26 14:25 | Outpatient (CLI) | payer OTHER, SELFPAY ==
[2024-02-01 10:08] LABS: Atopobium vaginae Low - 0 Score (.); BVAB2 Low - 0 Score (.); Candida albicans NAA Negative (Negative); Candida glabrata Negative (Negative); Chlamydia Trachomatis NAA Negative (Negative); HSV 1 NAA Negative (Negative); HSV 2 NAA Negative (Negative); Megasphaera 1 Low - 0 Score (.); Neisseria gonorrhoeae NAA Negative (Negative); Trich vag NAA Negative (Negative)
== END 2024-01-26 23:59 | disposition home or self-care (01) ==
LOC: LAB.DROPOF 14:26
PROVIDERS: PCP Obstetrics & Gynecology; Visit Provider Obstetrics & Gynecology
DX: N89.8 Other specified noninflammatory disorders of vagina (principal)
CPT/HCPCS: 87491; 87529; 87591; 87661; 87798; 87801

== ENCOUNTER 2024-02-01 08:56 | Outpatient (CLI) | payer OTHER, SELFPAY ==
--- NOTE | 2024-02-01 08:57 | US_ITS ---
PROCEDURE: US TRANSVAGINAL CLINICAL INDICATION: follow up to right ovarian cyst COMPARISON: US US TRANSVAGINAL from 12/27/2023 US US TRANSVAGINAL from 01/11/[address] ABDOMEN PELVIS W CON from 01/24/2024 US US TRANSVAGINAL from 01/24/2024 FINDINGS: Transvaginal sonographic images of the pelvis were obtained. UTERUS: 7.1cm x 5.7 cmx 4.0cm anteverted with a combined endometrial thickness of 5.7mm. A scar is seen. LEFT OVARY: 2.2cmx1.5cmx1.7cm with a volume of 2.8ml. RIGHT OVARY: 6.0cmx 3.7 cmx3.8 cm with a volume of 44.1ml. There is a simple appearing cyst measuring 5.3 cm x 3.5 cm x 4.7 cm The left ovary is seen and appears normal. Doppler flow to both ovaries are seen. There is no fluid in the cul-de-sac. IMPRESSION: 1. Anteverted uterus normal in shape and size. The endometrium appears normal. 2. The left ovary is seen and appears normal. Within the right ovary is a simple appearing cyst measuring 5.3 cm in size. Suggest follow-up in 3 months. 3. No fluid in the cul-de-sac Dictated by: Boby Ramon MD 02/01/2024 17:57 Boby Ramon MD in [facility] 02/01/2024 17:57
== END 2024-02-01 23:59 | disposition home or self-care (01) ==
LOC: RAD 08:57
PROVIDERS: PCP Obstetrics & Gynecology; Visit Provider Obstetrics & Gynecology
DX: N83.201 Unspecified ovarian cyst, right side (principal)
CPT/HCPCS: 76830

== ENCOUNTER 2024-02-20 19:27 | Emergency (ER) | payer OTHER, SELFPAY ==
--- NOTE | 2024-02-20 19:36 | US_ITS ---
PROCEDURE INFORMATION: Exam: US Pelvis, Transvaginal, Non-Obstetric Exam date and time: 02/20/2024 8:03 PM Age: 33 years old Clinical indication: Pelvic pain; Additional info: R ovarian cyst, R/O torsion TECHNIQUE: Imaging protocol: Real-time transvaginal pelvic (non-obstetric) ultrasound with image documentation. Transvaginal imaging was used for better evaluation of the endometrium, adnexa, and/or cervix. COMPARISON: US TRANSVAGINAL 02/01/2024 8:52 AM FINDINGS: Uterus: Uterus is anteverted and normal in appearance and measures 8.8 x 4.3 x 5.7 cm. Endometrial stripe measures 8 mm. Right ovary/adnexa: 3 x 2.8 x 2 cm. 2.2 cm simple appearing cyst. Normal ovarian blood flow on color Doppler. Left ovary/adnexa: 2.3 x 3.1 x 3 cm. 1.6 cm simple appearing cyst. Normal ovarian blood flow on color Doppler. Urinary bladder: Urinary bladder is limited. Intraperitoneal space: Small volume of free fluid in the cul-de-sac. IMPRESSION: No acute findings. Simple appearing bilateral ovarian cysts.
--- NOTE | 2024-02-20 19:37 | PC.NURSE ---
Paging ultrasound for this patient.
[2024-02-20 19:39] VITALS: BP 132/86; PULSE 84; RESP 20; TEMP 36.8; O2SAT 100; BMI 26.1
--- NOTE | 2024-02-20 19:45 | PC.NURSE ---
Pt awake alert and oriented Vomiting at this time Skin pink warm and dry Resp full and easy. Speech clear and appropriate. Abd soft and flat. Report given to Coby PEREA
[2024-02-20] MEDS: KETOROLAC 30MG/ML VIAL 15 MG IV (19:52)
[2024-02-20] MEDS: ONDANSETRON 4MG/2ML VIAL 4 MG IV (19:52)
[2024-02-20] MEDS: MORPHINE 4MG/ML SYRINGE 4 MG IV (19:52)
[2024-02-20] MEDS: ACETAMINOPHEN 1,000MG/100ML VIAL 1000 MG IV (19:52)
[2024-02-20 19:58] LABS: Basophils % 0.3 % (0.1-2.0); Eosinophils # 0.1 K/mm3 (0.0-0.4); Hemoglobin 12.5 g/dL (12.2-16.2); Lymphocytes # 2.5 K/mm3 (0.7-4.5); Lymphocytes % 24.6 % (10-50); Mean Corpuscular HGB Conc 32.9 g/dL (31.8-35.4); Mean Corpuscular Hemoglobin 28.5 pg (27.0-31.2); Mean Corpuscular Volume 86.8 fl (81-99); Monocytes # 0.7 K/mm3 (0.1-1.0); Monocytes % 7.1 % (1.7-9.3); Neutrophils # 6.7 K/mm3 (1.8-7.8); Neutrophils % 66.8 % (37.0-80.0); Platelet Count 271 K/mm3 (142-424); Red Blood Count 4.38 M/mm3 (4.20-5.40); Red Cell Distribution Width 13.7 % (11.5-17.5)
[2024-02-20 20:00] VITALS: BP 110/82; PULSE 92; O2SAT 100
[2024-02-20 20:06] LABS: Albumin Level 4.6 g/dl (3.5-5.0); Chloride 105 mmol/L (98-107); Potassium 4.1 mmoL/L (3.5-5.1); Sodium 137 mmol/L (136-145)
[2024-02-20 20:09] LABS: Alanine Aminotransferase 20 U/L (12-78); Albumin/Globulin Ratio 1.5 (1.1-1.8); Alkaline Phosphatase 64 U/L (38-126); Anion Gap 10.1 mEq/L (5-15); Aspartate Amino Transferase 30 U/L (14-36); Bilirubin,Total 0.2 mg/dl (0.2-1.3); Blood Urea Nitrogen 19 mg/dl (7-17); Calcium 9.5 mg/dl (8.4-10.2); Carbon Dioxide 26 mmol/L (22.0-30.0); Creatinine Clearance Estimated 126 mL/min (50-200); Estimated Glomerular Filt Rate 97 ml/min (>60); GFR (African American) 117 ML/MIN (>60); Glucose 95 mg/dl (74-100); Total Protein,Serum 7.6 g/dl (6.3-8.2)
--- NOTE | 2024-02-20 20:09 | PC.NURSE ---
Pt to ultrasound
--- NOTE | 2024-02-20 20:10 | PC.NURSE ---
Pt to ultrasound via wheelchair
--- NOTE | 2024-02-20 20:11 | ED_ITS ---
Discharge Plan Disposition Patient Disposition: Home, Self-Care Condition: Good Prescriptions Prescriptions: New ketorolac 10 mg tablet 10 mg PO Q8H PRN (Reason: pain) 3 Days Qty: 12 0RF ondansetron 4 mg tablet,disintegrating 4 mg PO Q8H PRN (Reason: nausea and vomiting) 4 Days Qty: 12 0RF No Action hydrocodone-acetaminophen 5-325 mg tablet 1 tab PO Q8H PRN (Reason: pain) Qty: 10 0RF buspirone 10 mg tablet 10 mg PO BID Qty: 60 12RF Rx Instructions: Please take 1/2 tablet p.o. nightly x 5 to 7 days and then 1 tablet p.o. nightly x 5 to 7 days and then 1 tablet p.o. twice daily thereafter Gimoti 15 mg/spray spray with pump 1 spray intranasal QID Qty: 9.8 3RF Rx Instructions: administer into ONE nostril 30 minutes before each meal and at bedtime ondansetron 4 mg tablet,disintegrating 4 mg PO Q6H PRN (Reason: nausea and vomiting) Qty: 14 0RF Referrals Follow up/Referrals: Norma Friedman APRN [Primary Care Provider] - See instructions Activity Restrictions/Add. Instructions Additional Instructions/Restrictions: You were evaluated in the emergency department today. Please diamond picker your prescriptions at the pharmacy and take them as needed for symptoms. You may also take Tylenol every 4-6 hours as needed for pain. Follow-up closely with your primary care provider. Return to the emergency department for new or worsening symptoms. Clinical Impressions Clinical Impression: Bilateral ovarian cysts Stand Alone Forms Stand Alone Forms: Work/School Release Instructions Patient Instructions: DI for Ovarian Cyst, DI for Acute Abdominal Pain Print Language Print Language: Chinese Discharge ED Provider: Rama [facility] Adult HPI General Chief complaint: Abdominal Pain Stated complaint: sent by A Jaden- ovarian torsion Time Seen by Provider: 02/20/24 19:36 Mode of Arrival: Ambulatory Source of Information: Patient Limitations: No Limitations Description of Symptoms (Recalled from ER Triage Doc. by RN): Abdominal pain known ovarian cysts bilaterally History of Present Illness HPI narrative: This patient is a 33-year-old female with a history of known right ovarian cyst presenting to the emergency department for evaluation with concern for severe lower abdominal pain. Patient has had multiple evaluations both here and outpatient with gynecology for pelvic pain over the last month with noted large right ovarian simple cyst. She also notes that she has been told she has a cyst versus dominant follicle on her left ovary that is developing as well. She states that she has had intermittent twinges of pain over the last several days, but several hours prior to arrival she developed severe right lower quadrant abdominal pain that is constant and unrelenting. The pain is so severe that she has had intractable nausea and vomiting and feels presyncopal. She also notes that she is having some vaginal bleeding though she has not supposed to be on her period right now. She does note that she is trying to conceive but thinks it would be too early to determine if she were at this time. She did have a miscarriage in December. Related Data Previous Rx's ?Medication ?Instructions ?Recorded buspirone 10 mg tablet 10 mg PO BID #60 tabs 01/09/24 metoclopramide HCl 15 mg/spray 1 spray intranasal QID #9.8 mL 01/09/24 nasal spray with pump (Gimoti) ondansetron 4 mg disintegrating 4 mg PO Q6H PRN nausea and 01/24/24 tablet vomiting #14 tabs hydrocodone 5 mg-acetaminophen 325 1 tab PO Q8H PRN pain #10 tabs 01/26/24 mg tablet ketorolac 10 mg tablet 10 mg PO Q8H PRN pain 3 days #12 02/20/24 tabs ondansetron 4 mg disintegrating 4 mg PO Q8H PRN nausea and 02/20/24 tablet vomiting 4 days #12 tabs Allergies Allergy/AdvReac Type Severity Reaction Status Date / Time No Known Allergies Allergy Verified 01/26/24 11:01 [facility] Disclaimer: The information contained in this section may have been updated after the patient was seen, as this information can be updated by other users. Medical History Missed GERD (gastroesophageal reflux disease) Grand multipara History of recurrent miscarriages History of miscarriage, currently History of anemia Urinary tract infection History of gastroesophageal reflux (GERD) Endometriosis Dysmenorrhea Menorrhagia History of miscarriage History of fainting History of heavy periods Surgical History History of tympanostomy tube placement History of section Hx of section Family History Other Family history of diabetes mellitus type II Family history of myocardial infarction 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 Have you lived/traveled outside [place] in past 30 days?: No Contact w/someone who lives/traveled outside [place] past 30 days?: No Exposure to someone with infectious disease in past 14 days?: No Do you have a fever (greater than 100.4 F or 38 C)?: No Have you tested positive for COVID-19: No Exposed to someone with COVID-19 in past 14 days?: No Do you have a sore throat?: No Do you have a cough?: No Do you have any weakness?: No Do you have any diarrhea?: No Are you experiencing any unusual bleeding?: No Do you have any muscle aches/pain?: No Do you have any abdominal pain?: No Are you experiencing loss of taste or smell?: No Other Medical History Have you received the Flu Vaccine for this season: No Have you received the Pneumonia Vaccine: No ROS Obtained: Yes All systems reviewed & no additional complaints except as documented Physical Exam General General appearance: alert Comment: Uncomfortable appearing Head Head exam: atraumatic and normocephalic Eye Eye exam: Present normal appearance, PERRL and EOMI ENT ENT exam: Present normal exam, normal oropharynx, mucous membranes moist and normal external ear exam Neck Neck exam: Present normal inspection, full ROM and trachea midline; Absent tenderness Chest Chest inspection: Present normal inspection and symmetric chest wall rise; Absent tenderness Respiratory Respiratory exam: Present normal lung sounds bilaterally; Absent respiratory distress, wheezes, stridor or accessory muscle use Cardiovascular Cardiovascular exam: Present normal rhythm and tachycardia Abdominal Exam Abdominal exam: Present soft and tenderness (RLQ); Absent distention or guarding Extremities Exam Extremities exam: Present normal inspection, full ROM and normal capillary refill; Absent tenderness or edema Back Exam Back exam: Present normal inspection and full ROM; Absent tenderness Neurological Exam Neurological exam: Present alert, oriented X3, CN II-XII intact and normal gait; Absent motor sensory deficit Psychiatric Psychiatric exam: Present normal affect and normal mood Skin Skin exam: Present warm and dry Medical Decision Making Medical Records Medical records reviewed: Yes I reviewed the patient's medical records. Screening: Per USPSTF and CDC recommendations, given the prevalence of disease in our region, it is our hospital?s policy to screen for HIV and viral Hepatitis for all patients aged 18 and over and those with ongoing risk factors. Maxime Inquiry Pt receiving controlled substance: No Vital Signs: 02/20/24 19:39 02/20/24 20:00 02/20/24 22:30 Temperature 98.2 F 98.4 F Temperature Source Oral Oral Pulse Rate 92 H 82 Pulse Rate [Right Brachial] 84 Respiratory Rate 20 20 Blood Pressure 110/82 110/92 H Blood Pressure [Right Arm] 132/86 Blood Pressure Mean 87 Blood Pressure Mean [Right Arm] 101 Blood Pressure Source Automatic Cuff Blood Pressure Source [Right Arm] Automatic Cuff Blood Pressure Position Sitting Blood Pressure Position [Right Arm] Sitting 02 Sat by Pulse Oximetry 100 100 Oxygen Delivery Method Room Air Room Air Room Air Lab Data Lab results reviewed: Yes I reviewed the patient's lab results. Lab Results 02/20/24 19:45: WBC 10.0, RBC 4.38, Hgb 12.5, Hct 38.0, MCV 86.8, MCH 28.5, MCHC 32.9, RDW 13.7, Plt Count 271, MPV 12.0 H, Neut % (Auto) 66.8, Lymph % (Auto) 24.6, Sawyer % (Auto) 7.1, Eos % (Auto) 1.0, Baso % (Auto) 0.3, Neut # (Auto) 6.7, Lymph # (Auto) 2.5, Sawyer # (Auto) 0.7, Eos # (Auto) 0.1, Baso # (Auto) 0.0, Sodium 137, Potassium 4.1, Chloride 105, Carbon Dioxide 26, Anion Gap 10.1, BUN 19 H, Creatinine 0.70, Estimated Creat Clear 126, Estimated GFR 97, Est GFR ( Amer) 117, Glucose 95, Calcium 9.5, Total Bilirubin 0.2, AST 30, ALT 20, Alkaline Phosphatase 64, C-Reactive Protein < 3.0, Total Protein 7.6, Albumin 4.6, Globulin 3.0, Albumin/Globulin Ratio 1.5, HCG, Quant < 2, HCV Ab DELILAH w/Rflx PCR Qn Negative, HIV Ag/Ab Combo Qual Negative 02/20/24 20:55: Urine Color Yellow, Urine Appearance Clear, Urine pH 7.5, Ur Specific [place] 1.020, Urine Protein Negative, Urine Glucose (UA) Negative, Urine Ketones Negative, Urine Blood Negative, Urine Nitrate Negative, Urine Bilirubin Negative, Urine Urobilinogen 0.2, Ur Leukocyte Esterase Negative, Urine RBC Occasional, Urine WBC 3-5, Ur Squamous Epith Cells 10-20, Urine Bacteria 2+, Urine Mucus 1+ 02/20/24 19:45 02/20/24 19:45 Orders (Tests/Meds): ED MEDICATIONS Discontinued Medications Generic Name Dose Route Start Last Admin Trade Name Freq PRN Reason Stop Dose Admin Acetaminophen 1,000 mg 02/20/24 19:39 02/20/24 19:52 Acetaminophen 1,000mg/100ml Vial IV 02/20/24 19:40 1,000 mg ONCE ONE Administration Iopamidol 75 ml 02/20/24 21:08 02/20/24 21:09 Iopamidol-370 (76%);100ml Bottle IV 02/20/24 21:09 75 ml ONCE ONE Administration Ketorolac Tromethamine 15 mg 02/20/24 19:39 02/20/24 19:52 Ketorolac 30mg/Ml Vial IV 02/20/24 19:40 15 mg ONCE ONE Administration Morphine Sulfate 4 mg 02/20/24 19:37 02/20/24 19:52 Morphine 4mg/Ml Syringe IV 02/20/24 19:38 4 mg ONCE ONE Administration Ondansetron HCl 4 mg 02/20/24 19:37 02/20/24 19:52 Ondansetron 4mg/2ml Vial IV 02/20/24 19:38 4 mg ONCE ONE Administration Sodium Chloride 10 ml 02/20/24 21:08 02/20/24 21:09 Sodium Chloride 0.9% 10ml Syr (Rad Only) IV 02/20/24 21:09 10 ml ONCE ONE Administration ORDERS Category Date Time Status CT abdomen pelvis w con Stat Cat Scan 02/20/24 20:51 Completed US transvaginal Stat Exams 02/20/24 19:36 Completed Beta HCG, Quant [HCG,Quantitative] Stat Lab 02/20/24 19:45 Completed CRP [C-Reactive Protein] Stat Lab 02/20/24 19:45 Completed Complete Blood Count Auto Diff Stat Lab 02/20/24 19:45 Completed Comprehensive Metabolic Panel Stat Lab 02/20/24 19:45 Completed HIV Combo Routine Lab 02/20/24 19:45 Completed Hepatitis C Ab Qual. W/ RFX Routine Lab 02/20/24 19:45 Completed UA [Urinalysis and Microscopic] Stat Lab 02/20/24 20:55 Completed Urine Culture Stat Micro 02/20/24 20:55 Received Medical Decision Narrative: In summary, this patient is a 33-year-old female presenting to the Emergency Department for evaluation of severe abdominal pain in the setting of known ovarian cyst. Differential diagnoses considered include but are not limited to ovarian torsion, ovarian cyst rupture, ectopic , appendicitis. Ruling out the most morbid conditions drove assessment. I reviewed patient's past medical records and noted recent evaluations by gynecology for follow-up of ovarian cyst as detailed in HPI. I also noted prior miscarriage from December. On exam, the patient is uncomfortable appearing with right lower quadrant tenderness. Workup included CBC, CMP, quantitative hCG, urinalysis. Immediately upon arrival given known history of large ovarian cyst, I did order stat transvaginal ultrasound and called an ultrasound from home. Patient was given IV morphine, Zofran, Toradol, acetaminophen for symptomatic improvement. I independently interpreted transvaginal ultrasound prior to the radiologist read and noted significant reduction in the size of her ovarian cyst. Please see their read for final interpretation. Labs were obtained that demonstrated reassuring CBC and chemistry with no significant leukocytosis, negative. Ultimately, given severe right lower quadrant abdominal pain, nausea, and vomiting with ovarian cyst that is shrinking on ultrasound, it is possible this could be related to ruptured ovarian cyst. Doubt torsion given that she has good flow on ultrasound. I did order CT scan of the abdomen and pelvis with IV contrast to further assess and rule out appendicitis. CT scan not concerning for any acute pathology. Patient feeling a lot better on assessment with benign abdominal exam. Given this, I feel that she is appropriate for discharge with outpatient follow-up with gynecology and primary care. She was given prescription for Toradol and Zofran as well as instruction for supportive management. She was given very strict return precautions. Critical Care Critical Care Time Critical Care Time: No
[2024-02-20 20:28] LABS: HCG,Quantitative < 2 mIU/ml (0-5.42)
--- NOTE | 2024-02-20 20:51 | CT_ITS ---
PROCEDURE INFORMATION: Exam: CT Abdomen And Pelvis With Contrast Exam date and time: 02/20/2024 9:09 PM Age: 33 years old Clinical indication: Abdominal pain; Additional info: Rlq pain TECHNIQUE: Imaging protocol: Computed tomography of the abdomen and pelvis with contrast. Radiation optimization: All CT scans at this facility use at least one of these dose optimization techniques: automated exposure control; mA and/or kV adjustment per patient size (includes targeted exams where dose is matched to clinical indication); or iterative reconstruction. Contrast material: ISOVUE; Contrast volume: 75 ml; Contrast route: IV; COMPARISON: CT ABDOMEN PELVIS W CON 01/24/2024 9:52 PM FINDINGS: Lungs: Calcified granuloma left lung base. Liver: Normal. No mass. Gallbladder and biliary ducts: Normal. No calcified stones. No ductal dilation. Pancreas: Normal. No ductal dilation. Spleen: Normal. No splenomegaly. Adrenal glands: Normal. No mass. Kidneys and ureters: Normal. No hydronephrosis. Stomach and bowel: Unremarkable. No obstruction. No mucosal thickening. Appendix: No evidence of appendicitis. Intraperitoneal space: Unremarkable. No free air. No significant fluid collection. Vasculature: Unremarkable. No abdominal aortic aneurysm. Lymph nodes: Unremarkable. No enlarged lymph nodes. Urinary bladder: Unremarkable as visualized. Reproductive: Unremarkable as visualized. Bones/joints: Unremarkable. No acute fracture. Soft tissues: Unremarkable. IMPRESSION: No acute intra-abdominal abnormality.
--- NOTE | 2024-02-20 20:53 | PC.NURSE ---
Pt back from ultrasound
[2024-02-20 21:06] LABS: C-Reactive Protein < 3.0 mg/L (0-4)
[2024-02-20] MEDS: SODIUM CHLORIDE 0.9% 10ML SYR (RAD ONLY) 10 ML IV (21:09)
[2024-02-20] MEDS: IOPAMIDOL-370 (76%);100ML BOTTLE 75 ML IV (21:09)
[2024-02-20 21:10] LABS: Microscopic, Urine URINE MICROSCOPIC (MICROSCOPIC)
[2024-02-20 21:11] LABS: Appearance,Urine CLEAR (Clear); Bilirubin,Urine Negative (Negative); Blood, Urine Negative (Negative); Color,Urine YELLOW (Yellow); Glucose,Urine (UA) Negative (Negative); Ketones,Urine Negative (Negative); Leukocyte Esterase,Urine Negative (Negative); Nitrate,Urine Negative (Negative); PH,Urine 7.5 (5.0-8.5); Protein,Urine Negative (Negative); Urobilinogen,Urine 0.2 EU/dl (0.2)
[2024-02-20 21:19] LABS: HIV Combo NEGATIVE (Negative)
[2024-02-20 21:27] LABS: RBC,Urine Occasional #/hpf (0-3)
[2024-02-20 21:27] LABS: Hepatitis C Ab Qual. W/ RFX NEGATIVE (Negative)
[2024-02-20 21:28] LABS: Bacteria,Urine 2+ /lpf; Mucus,Urine 1+ /lpf
[2024-02-20 22:30] VITALS: BP 110/92; PULSE 82; RESP 20; TEMP 36.9; O2SAT 97
--- NOTE | 2024-02-21 09:08 | PC.NURSE ---
Oswaldo called to verify that the patient received the toradol shot.
== END 2024-02-20 22:35 | disposition home or self-care (01) ==
PROVIDERS: Emergency Provider Emergency Medicine; PCP Nurse Practitioner Family
DX: N83.201 Unspecified ovarian cyst, right side (principal); N83.202 Unspecified ovarian cyst, left side; R10.31 Right lower quadrant pain; R11.2 Nausea with vomiting, unspecified; N93.9 Abnormal uterine and vaginal bleeding, unspecified
CPT/HCPCS: 74177; 76830; 80053; 81001; 84702; 85025; 86140; 86803; 87086; 87389; 96374; 96375; 99285; J0131; J1885; J2270; J2405; Q9967

== ENCOUNTER 2024-03-20 10:14 | Outpatient (CLI) | payer OTHER, SELFPAY | END 2024-03-20 23:59 | disposition home or self-care (01) | LOC: LAB 10:15 | PROVIDERS: PCP Nurse Practitioner Family | DX: N92.5 Other specified irregular menstruation (principal) | CPT/HCPCS: 84144; 84702 ==

== ENCOUNTER 2024-03-21 15:38 | Outpatient (CLI) | payer OTHER, SELFPAY ==
[2024-03-21 17:29] LABS: HCG,Quantitative 27 mIU/ml (0-5.42)
[2024-03-22 09:09] LABS: Progesterone 25.1 ng/mL (.)
== END 2024-03-21 23:59 | disposition home or self-care (01) ==
PROVIDERS: PCP Nurse Practitioner Family; Visit Provider Obstetrics & Gynecology
DX: Z32.01 Encounter for pregnancy test, result positive (principal)
CPT/HCPCS: 36415; 84144; 84702

== ENCOUNTER 2024-03-22 10:03 | Outpatient (CLI) | payer OTHER, SELFPAY ==
[2024-03-22 11:27] LABS: HCG,Quantitative 43 mIU/ml (0-5.42)
== END 2024-03-22 23:59 | disposition home or self-care (01) ==
LOC: LAB 10:05
PROVIDERS: PCP Nurse Practitioner Family; Visit Provider Obstetrics & Gynecology
DX: N92.5 Other specified irregular menstruation (principal)
CPT/HCPCS: 36415; 84702

== ENCOUNTER 2024-03-24 11:14 | Outpatient (CLI) | payer OTHER, SELFPAY ==
[2024-03-24 13:18] LABS: HCG,Quantitative 159 mIU/ml (0-5.42)
== END 2024-03-24 23:59 | disposition home or self-care (01) ==
LOC: LAB 11:15
PROVIDERS: PCP Nurse Practitioner Family; Visit Provider Obstetrics & Gynecology
DX: Z34.01 Encounter for supervision of normal first pregnancy, first trimester (principal)
CPT/HCPCS: 36415; 84702

== ENCOUNTER 2024-03-26 11:49 | Outpatient (CLI) | payer OTHER, SELFPAY | END 2024-03-26 23:59 | disposition home or self-care (01) | LOC: LAB 11:51 | PROVIDERS: PCP Nurse Practitioner Family | DX: N92.5 Other specified irregular menstruation (principal) | CPT/HCPCS: 36415; 84144; 84702 ==

== ENCOUNTER 2024-03-27 19:01 | Emergency (ER) | payer OTHER, SELFPAY ==
[2024-03-27 19:03] VITALS: BP 120/56; PULSE 119; RESP 20; TEMP 37.2; O2SAT 98; BMI 25.7
--- NOTE | 2024-03-27 19:06 | ED_ITS ---
Discharge Plan Disposition Patient Disposition: Home, Self-Care Condition: Good Prescriptions Prescriptions: New metoclopramide HCl [Reglan] 10 mg tablet 10 mg PO Q6H PRN (Reason: nausea and vomiting) Qty: 20 0RF No Action hydrocodone-acetaminophen 5-325 mg tablet 1 tab PO Q8H PRN (Reason: pain) Qty: 10 0RF buspirone 10 mg tablet 10 mg PO BID Qty: 60 12RF Rx Instructions: Please take 1/2 tablet p.o. nightly x 5 to 7 days and then 1 tablet p.o. nightly x 5 to 7 days and then 1 tablet p.o. twice daily thereafter Gimoti 15 mg/spray spray with pump 1 spray intranasal QID Qty: 9.8 3RF Rx Instructions: administer into ONE nostril 30 minutes before each meal and at bedtime sodium,potassium,mag sulfates [Suprep Bowel Prep Kit] 17.5-3.13-1.6 gram recon soln See Rx Instructions PO .COMPLEX Qty: 354 0RF Rx Instructions: DILUTE; drink full amount early evening before AND next morning at least 4-5 hr before procedure; follow w 960 mL water PO ketorolac 10 mg tablet 10 mg PO Q8H PRN (Reason: pain) 3 Days Qty: 12 0RF ondansetron 4 mg tablet,disintegrating 4 mg PO Q8H PRN (Reason: nausea and vomiting) 4 Days Qty: 12 0RF ondansetron 4 mg tablet,disintegrating 4 mg PO Q6H PRN (Reason: nausea and vomiting) Qty: 14 0RF Referrals Follow up/Referrals: Norma Friedman APRN [Primary Care Provider] - See instructions Activity Restrictions/Add. Instructions Additional Instructions/Restrictions: I have sent Reglan into your pharmacy. 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 You need to follow-up within 48 hours with [facility]. If you have continued new or worsening signs or symptoms follow-up sooner or return to the ER as needed. Clinical Impressions Clinical Impression: Nausea vomiting and diarrhea, Vaginal spotting Print Language Print Language: Turkmen Discharge ED Provider: Nehemiah Begum General Adult HPI <SONA Mcmullen - Last Filed: 03/27/24 21:40> General Chief complaint: Nausea/Vomiting/Diarrhea Stated complaint: vomiting blood , vaginal spotting,back pain Time Seen by Provider: 03/27/24 19:06 History of Present Illness HPI narrative: Patient presents for evaluation of nausea vomiting diarrhea since yesterday. Patient is 5 weeks . She has yet to have ultrasound but has been getting qualitative hCGs that are going upwards. However patient began having protracted nausea vomiting and watery stools since last night. She has been intolerant of any oral intake today. Currently she is having dry heaves and this afternoon she noticed significant pain during 1 of these episodes. She is now had an episode where she vomited some bloody emesis and blood clots but no reinaldo gastrointestinal bleeding. Patient denies bright red blood per rectum or dark stool and reports that she is having watery diarrhea. She also reported that she is now seeing some spotting since this episode started from her vagina. She reports some mid to low back pain as well. She denies any abdominal pain fever chills hemoptysis hematuria. Related Data Previous Rx's ?Medication ?Instructions ?Recorded buspirone 10 mg tablet 10 mg PO BID #60 tabs 01/09/24 metoclopramide HCl 15 mg/spray 1 spray intranasal QID #9.8 mL 01/09/24 nasal spray with pump (Gimoti) ondansetron 4 mg disintegrating 4 mg PO Q6H PRN nausea and 01/24/24 tablet vomiting #14 tabs hydrocodone 5 mg-acetaminophen 325 1 tab PO Q8H PRN pain #10 tabs 01/26/24 mg tablet ketorolac 10 mg tablet 10 mg PO Q8H PRN pain 3 days #12 02/20/24 tabs ondansetron 4 mg disintegrating 4 mg PO Q8H PRN nausea and 02/20/24 tablet vomiting 4 days #12 tabs sodium,potassium,mag sulfates 17.5 See Rx Instructions PO .COMPLEX 03/08/24 gram-3.13 gram-1.6 gram oral soln #354 mL (Suprep Bowel Prep Kit) metoclopramide HCl 10 mg tablet 10 mg PO Q6H PRN nausea and 03/27/24 (Reglan) vomiting #20 tabs Allergies Allergy/AdvReac Type Severity Reaction Status Date / Time No Known Allergies Allergy Verified 01/26/24 11:01 [facility] <SONA Mcmullen - Last Filed: 03/27/24 21:40> [facility] Disclaimer: The information contained in this section may have been updated after the patient was seen, as this information can be updated by other users. Medical History Missed GERD (gastroesophageal reflux disease) Grand multipara History of recurrent miscarriages History of miscarriage, currently History of anemia Urinary tract infection History of gastroesophageal reflux (GERD) Endometriosis Dysmenorrhea Menorrhagia History of miscarriage History of fainting History of heavy periods Surgical History History of tympanostomy tube placement History of section Hx of section Family History Other Family history of diabetes mellitus type II Family history of myocardial infarction Social History Smoking Status: Never smoker alcohol intake: never substance use type: denies use current occupational status: unemployed Travel in the last 8 weeks: Inside the [place] household members: spouse housing: house current occupation: [employer] Have you lived/traveled outside [place] in past 30 days?: No Contact w/someone who lives/traveled outside US past 30 days?: No Exposure to someone with infectious disease in past 14 days?: No Do you have a fever (greater than 100.4 F or 38 C)?: No Have you tested positive for COVID-19: No Exposed to someone with COVID-19 in past 14 days?: No Do you have a sore throat?: No Do you have a cough?: No Do you have any weakness?: No Do you have any diarrhea?: No Are you experiencing any unusual bleeding?: Yes Do you have any muscle aches/pain?: No Do you have any abdominal pain?: No Are you experiencing loss of taste or smell?: No Other Medical History Have you received the Flu Vaccine for this season: No Have you received the Pneumonia Vaccine: No <SONA Mcmullen - Last Filed: 03/27/24 21:40> ROS Obtained: Yes Systems reviewed as appropriate & no additional complaints except as documented Physical Exam <SONA Mcmullen - Last Filed: 03/27/24 21:40> General General appearance: alert and in no apparent distress Respiratory Respiratory exam: Present normal lung sounds bilaterally Cardiovascular Cardiovascular exam: Present regular rate Neurological Exam Neurological exam: Present alert and oriented X3 Medical Decision Making <SONA Mcmullen - Last Filed: 03/27/24 21:40> Medical Records Medical records reviewed: Yes I reviewed the patient's medical records. Screening: Per USPSTF and CDC recommendations, given the prevalence of disease in our region, it is our hospital?s policy to screen for HIV and viral Hepatitis for all patients aged 18 and over and those with ongoing risk factors. Maxime Inquiry Pt receiving controlled substance: No Vital Signs: 03/27/24 19:03 03/27/24 19:31 03/27/24 19:46 Temperature 98.9 F Temperature Source Tympanic Pulse Rate 63 83 Pulse Rate [Apical] 119 H Respiratory Rate 20 Blood Pressure 136/114 H 119/89 Blood Pressure [Right Arm] 120/56 L Blood Pressure Mean [Right Arm] 77 02 Sat by Pulse Oximetry 98 97 100 Oxygen Delivery Method Room Air Room Air Room Air 03/27/24 20:00 03/27/24 20:31 03/27/24 21:43 Temperature 98.3 F Temperature Source Oral Pulse Rate 99 H 91 H 86 Pulse Rate [Apical] Respiratory Rate 20 Blood Pressure 111/92 H 117/74 119/77 Blood Pressure [Right Arm] Blood Pressure Mean [Right Arm] 02 Sat by Pulse Oximetry 98 100 Oxygen Delivery Method Room Air Room Air Room Air Lab Data Lab results reviewed: Yes I reviewed the patient's lab results. Lab Results 03/27/24 19:30: WBC 12.3 H, RBC 4.60, Hgb 13.1, Hct 39.4, MCV 85.7, MCH 28.5, MCHC 33.2, RDW 13.2, Plt Count 284, MPV 12.1 H, Neut % (Auto) 80.4 H, Lymph % (Auto) 11.8, [place] % (Auto) 6.1, Eos % (Auto) 1.2, Baso % (Auto) 0.2, Neut # (Auto) 9.9 H, Lymph # (Auto) 1.5, [place] # (Auto) 0.8, Eos # (Auto) 0.2, Baso # (Auto) 0.0, PT 11.1, INR 0.99, Sodium 140, Potassium 3.5, Chloride 108 H, Carbon Dioxide 20 L, Anion Gap 15.5 H, BUN 12, Creatinine 0.60, Estimated Creat Clear 148, Estimated GFR 115, Est GFR ( Amer) 139, Glucose 104 H, Calcium 9.5, Magnesium 1.7, Total Bilirubin 0.8, AST 23, ALT 20, Alkaline Phosphatase 69, T otal Protein 8.5 H, Albumin 4.9, Globulin 3.6 H, Albumin/Globulin Ratio 1.4, Procalcitonin 0.041, HCG, Quant 730 H 03/27/24 19:37: Blood Type O Positive, Antibody Screen Negative 03/27/24 19:45: Stl Aeromonas (PCR) Not detected, Stl C. cayetanensis PCR Not detected, Stool Rotavirus (PCR) Not detected, Stl Adenov F 40/41 PCR Not detected, Stool Astrovirus (PCR) Not detected, Stool Campylobacter PCR Not detected, Stl C.difficile Tox PCR Not detected, Stool Cryptosporidium PCR Not detected, Stl E.coli Shiga Tox PCR Not detected, Stool E coli O157 PCR Not detected, Stl Enterotoxigenic E PCR Not detected, Stool EPEC (PCR) Not detected, Stool EAEC (PCR) Not detected, Stl E. histolytica PCR Not detected, Stool Giardia Lamblia PCR Not detected, Stool Salmonella PCR Not detected, Stool Sapovirus (PCR) Not detected, Stl P. shigelloides PCR Not detected, Stl Shigella/EIEC PCR Not detected, St Y.enterocolitica PCR Not detected, Stool Vibrio (PCR) Not detected, Stl Vibrio cholerae PCR Not detected, Stl Norovirus GI/GII PCR Not detected 03/27/24 19:30 03/27/24 19:30 Orders (Tests/Meds): ED MEDICATIONS Discontinued Medications Generic Name Dose Route Start Last Admin Trade Name Freq PRN Reason Stop Dose Admin Acetaminophen 1,000 mg 03/27/24 19:25 03/27/24 20:08 Acetaminophen 1,000mg/100ml Vial IV 03/27/24 19:26 1,000 mg ONCE ONE Administration Lactated Ringer's 1,000 mls @ 999 mls/hr 03/27/24 19:25 03/27/24 20:08 Lactated Ringer's 1000 Ml Bag IV 03/27/24 20:25 999 mls/hr .Q1H1M ONE Administration Pantoprazole Sodium 80 mg/ 100 mls @ 100 mls/hr 03/27/24 21:09 03/27/24 21:25 Sodium Chloride IV 03/27/24 22:08 100 mls/hr ONCE ONE Administration Metoclopramide HCl 10 mg 03/27/24 20:43 03/27/24 20:46 Metoclopramide Hcl 10mg/2ml Vial IVP 03/27/24 20:44 10 mg ONCE ONE Administration Ondansetron HCl 4 mg 03/27/24 19:25 03/27/24 20:08 Ondansetron 4mg/2ml Vial IV 03/27/24 19:26 4 mg ONCE ONE Administration ORDERS Category Date Time Status Type and Screen Stat BBK 03/27/24 19:37 Completed CBC w/Auto Diff [Complete Blood Count Auto Diff] Stat Lab 03/27/24 19:30 Completed CMP [Comprehensive Metabolic Panel] Stat Lab 03/27/24 19:30 Completed Diarrhea 23 Panel, PCR Stat Lab 03/27/24 19:45 Completed HCG,Quantitative Stat Lab 03/27/24 19:30 Completed INR [Prothrombin Time INR] Stat Lab 03/27/24 19:30 Completed Magnesium Stat Lab 03/27/24 19:30 Completed Procalcitonin Stat Lab 03/27/24 19:30 Completed Urine , HCG Qual. Stat Lab 03/27/24 19:25 Ordered US OB transvaginal Stat Ultrasound 03/27/24 20:36 Completed Medical Decision Narrative: In summary patient is a 34-year-old female who presents to the emergency department for evaluation of nausea vomiting diarrhea hematemesis and vaginal spotting. Patient is initially normotensive at 120/56 tachycardic at 119 with sinus tachycardia the bedside monitor breathing 20 times a minute satting at 98% on room air upon arrival, afebrile at 98.9. Physical exam is remarkable for dry heaves and presents and no hematemesis currently. Abdomen is soft mildly diffusely tender to palpation without rebound or guarding or rigidity and no focal tenderness.. Differential diagnosis includes hyperemesis gravidarum versus gastroenteritis versus Chinyere-Canales tear versus upper GI bleed versus spotting versus ectopic versus threatened etc. Initial workup will be conducted with hematologic labs urines quantitative hCG transvaginal ultrasound. Initial interventions include crystalloid bolus Tylenol Zofran. Initial workup reviewed by me shows that her labs are significant for white count of 12.3 with an absolute neutrophil count of 9.9 INR is 0.99, CO2 is 20 anion gap is 15.5 magnesium is 1.7 procalcitonin is 0.041 quantitative hCG is 730. Transvaginal ultrasound does not show evidence of an ectopic but does not show evidence of viable intrauterine currently. Upon repeat evaluation at 2042 patient has had no response to Zofran. Will try Reglan next. I will give her first dose of Protonix IV as she is having so much emesis and intolerance of oral intake. Patient was assessed at 2135 and is now able to tolerate oral intake after the Reglan and her emesis is stopped. Given this patient is appropriate for discharge with a prescription sent to her pharmacy for Reglan and follow-up with [facility] within 48 hours. Patient verbalized understanding and agreement and is comfortable going home with that plan. <Nehemiah Begum MD - Last Filed: 03/27/24 23:21> Vital Signs: 03/27/24 19:03 03/27/24 19:31 03/27/24 19:46 Temperature 98.9 F Temperature Source Tympanic Pulse Rate 63 83 Pulse Rate [Apical] 119 H Respiratory Rate 20 Blood Pressure 136/114 H 119/89 Blood Pressure [Right Arm] 120/56 L Blood Pressure Mean [Right Arm] 77 02 Sat by Pulse Oximetry 98 97 100 Oxygen Delivery Method Room Air Room Air Room Air 03/27/24 20:00 03/27/24 20:31 03/27/24 21:43 Temperature 98.3 F Temperature Source Oral Pulse Rate 99 H 91 H 86 Pulse Rate [Apical] Respiratory Rate 20 Blood Pressure 111/92 H 117/74 119/77 Blood Pressure [Right Arm] Blood Pressure Mean [Right Arm] 02 Sat by Pulse Oximetry 98 100 Oxygen Delivery Method Room Air Room Air Room Air Lab Data Lab Results 03/27/24 19:30: WBC 12.3 H, RBC 4.60, Hgb 13.1, Hct 39.4, MCV 85.7, MCH 28.5, MCHC 33.2, RDW 13.2, Plt Count 284, MPV 12.1 H, Neut % (Auto) 80.4 H, Lymph % (Auto) 11.8, [place] % (Auto) 6.1, Eos % (Auto) 1.2, Baso % (Auto) 0.2, Neut # (Auto) 9.9 H, Lymph # (Auto) 1.5, [place] # (Auto) 0.8, Eos # (Auto) 0.2, Baso # (Auto) 0.0, PT 11.1, INR 0.99, Sodium 140, Potassium 3.5, Chloride 108 H, Carbon Dioxide 20 L, Anion Gap 15.5 H, BUN 12, Creatinine 0.60, Estimated Creat Clear 148, Estimated GFR 115, Est GFR ( Amer) 139, Glucose 104 H, Calcium 9.5, Magnesium 1.7, Total Bilirubin 0.8, AST 23, ALT 20, Alkaline Phosphatase 69, T otal Protein 8.5 H, Albumin 4.9, Globulin 3.6 H, Albumin/Globulin Ratio 1.4, Procalcitonin 0.041, HCG, Quant 730 H 03/27/24 19:37: Blood Type O Positive, Antibody Screen Negative 03/27/24 19:45: Stl Aeromonas (PCR) Not detected, Stl C. cayetanensis PCR Not detected, Stool Rotavirus (PCR) Not detected, Stl Adenov F 40/41 PCR Not detected, Stool Astrovirus (PCR) Not detected, Stool Campylobacter PCR Not detected, Stl C.difficile Tox PCR Not detected, Stool Cryptosporidium PCR Not detected, Stl E.coli Shiga Tox PCR Not detected, Stool E coli O157 PCR Not detected, Stl Enterotoxigenic E PCR Not detected, Stool EPEC (PCR) Not detected, Stool EAEC (PCR) Not detected, Stl E. histolytica PCR Not detected, Stool Giardia Lamblia PCR Not detected, Stool Salmonella PCR Not detected, Stool Sapovirus (PCR) Not detected, Stl P. shigelloides PCR Not detected, Stl Shigella/EIEC PCR Not detected, St Y.enterocolitica PCR Not detected, Stool Vibrio (PCR) Not detected, Stl Vibrio cholerae PCR Not detected, Stl Norovirus GI/GII PCR Not detected Orders (Tests/Meds): ED MEDICATIONS Discontinued Medications Generic Name Dose Route Start Last Admin Trade Name Freq PRN Reason Stop Dose Admin Acetaminophen 1,000 mg 03/27/24 19:25 03/27/24 20:08 Acetaminophen 1,000mg/100ml Vial IV 03/27/24 19:26 1,000 mg ONCE ONE Administration Lactated Ringer's 1,000 mls @ 999 mls/hr 03/27/24 19:25 03/27/24 20:08 Lactated Ringer's 1000 Ml Bag IV 03/27/24 20:25 999 mls/hr .Q1H1M ONE Administration Pantoprazole Sodium 80 mg/ 100 mls @ 100 mls/hr 03/27/24 21:09 03/27/24 21:25 Sodium Chloride IV 03/27/24 22:08 100 mls/hr ONCE ONE Administration Metoclopramide HCl 10 mg 03/27/24 20:43 03/27/24 20:46 Metoclopramide Hcl 10mg/2ml Vial IVP 03/27/24 20:44 10 mg ONCE ONE Administration Ondansetron HCl 4 mg 03/27/24 19:25 03/27/24 20:08 Ondansetron 4mg/2ml Vial IV 03/27/24 19:26 4 mg ONCE ONE Administration ORDERS Category Date Time Status Type and Screen Stat BBK 03/27/24 19:37 Completed CBC w/Auto Diff [Complete Blood Count Auto Diff] Stat Lab 03/27/24 19:30 Completed CMP [Comprehensive Metabolic Panel] Stat Lab 03/27/24 19:30 Completed Diarrhea 23 Panel, PCR Stat Lab 03/27/24 19:45 Completed HCG,Quantitative Stat Lab 03/27/24 19:30 Completed INR [Prothrombin Time INR] Stat Lab 03/27/24 19:30 Completed Magnesium Stat Lab 03/27/24 19:30 Completed Procalcitonin Stat Lab 03/27/24 19:30 Completed Urine , HCG Qual. Stat Lab 03/27/24 19:25 Ordered US OB transvaginal Stat Ultrasound 03/27/24 20:36 Completed Medical Decision Narrative: In summary patient is a 34-year-old female who presents to the emergency department for evaluation of nausea vomiting diarrhea hematemesis and vaginal spotting. Patient is initially normotensive at 120/56 tachycardic at 119 with sinus tachycardia the bedside monitor breathing 20 times a minute satting at 98% on room air upon arrival, afebrile at 98.9. Physical exam is remarkable for dry heaves and presents and no hematemesis currently. Abdomen is soft mildly diffusely tender to palpation without rebound or guarding or rigidity and no focal tenderness.. Differential diagnosis includes hyperemesis gravidarum versus gastroenteritis versus Chinyere-Canales tear versus upper GI bleed versus spotting versus ectopic versus threatened etc. Initial workup will be conducted with hematologic labs urines quantitative hCG transvaginal ultrasound. Initial interventions include crystalloid bolus Tylenol Zofran. Initial workup reviewed by me shows that her labs are significant for white count of 12.3 with an absolute neutrophil count of 9.9 INR is 0.99, CO2 is 20 anion gap is 15.5 magnesium is 1.7 procalcitonin is 0.041 quantitative hCG is 730. Transvaginal ultrasound does not show evidence of an ectopic but does not show evidence of viable intrauterine currently. Upon repeat evaluation at 2042 patient has had no response to Zofran. Will try Reglan next. I will give her first dose of Protonix IV as she is having so much emesis and intolerance of oral intake. Patient was assessed at 2135 and is now able to tolerate oral intake after the Reglan and her emesis is stopped. Given this patient is appropriate for discharge with a prescription sent to her pharmacy for Reglan and follow-up with [facility] within 48 hours. Patient verbalized understanding and agreement and is comfortable going home with that plan. I was consulted by the ANUSHA, and we discussed the complexity of the problems being addressed. I approved the treatment and management plan for this patient's care in the Emergency Department, thus performing a substantive portion of the medical decision making. Nehemiah Begum MD Critical Care <SONA Mcmullen - Last Filed: 03/27/24 21:40> Critical Care Time Critical Care Time: Yes Attestation: On 03/27/24, the high probability of a clinically significant, sudden or life threatening deterioration of the following system(s) required my full and direct attention, intervention and personal management. The time I documented below is in addition to time spent performing reported procedures but includes the following listed in this critical care notation. Total Time Total Critical Care Time: 35
[2024-03-27 19:31] VITALS: BP 136/114; PULSE 63; O2SAT 97
[2024-03-27 19:44] LABS: Basophils % 0.2 % (0.1-2.0); Eosinophils # 0.2 K/mm3 (0.0-0.4); Eosinophils % 1.2 % (0.1-12.0); Hematocrit 39.4 % (37.0-47.0); Hemoglobin 13.1 g/dL (12.2-16.2); Lymphocytes # 1.5 K/mm3 (0.7-4.5); Lymphocytes % 11.8 % (10-50); Mean Corpuscular HGB Conc 33.2 g/dL (31.8-35.4); Mean Corpuscular Hemoglobin 28.5 pg (27.0-31.2); Mean Corpuscular Volume 85.7 fl (81-99); Mean Platelet Volume 12.1 fl (7.4-10.4); Monocytes # 0.8 K/mm3 (0.1-1.0); Monocytes % 6.1 % (1.7-9.3); Neutrophils # 9.9 K/mm3 (1.8-7.8); Neutrophils % 80.4 % (37.0-80.0); Platelet Count 284 K/mm3 (142-424); Red Cell Distribution Width 13.2 % (11.5-17.5); White Blood Count 12.3 K/mm3 (4.8-10.8)
[2024-03-27 19:45] LABS: Albumin Level 4.9 g/dl (3.5-5.0); Chloride 108 mmol/L (98-107); Potassium 3.5 mmoL/L (3.5-5.1); Sodium 140 mmol/L (136-145)
[2024-03-27 19:46] VITALS: BP 119/89; PULSE 83; O2SAT 100
[2024-03-27 19:48] LABS: Alanine Aminotransferase 20 U/L (12-78); Albumin/Globulin Ratio 1.4 (1.1-1.8); Alkaline Phosphatase 69 U/L (38-126); Anion Gap 15.5 mEq/L (5-15); Aspartate Amino Transferase 23 U/L (14-36); Bilirubin,Total 0.8 mg/dl (0.2-1.3); Blood Urea Nitrogen 12 mg/dl (7-17); Calcium 9.5 mg/dl (8.4-10.2); Carbon Dioxide 20 mmol/L (22.0-30.0); Creatinine Clearance Estimated 148 mL/min (50-200); Estimated Glomerular Filt Rate 115 ml/min (>60); GFR (African American) 139 ML/MIN (>60); Globulin 3.6 g/dL (1.3-3.2); Glucose 104 mg/dl (74-100); Magnesium 1.7 mg/dl (1.6-2.3); Total Protein,Serum 8.5 g/dl (6.3-8.2)
[2024-03-27 19:50] LABS: INR 0.99 (0.9-1.1); Prothrombin Time 11.1 seconds (10.1-12.5)
[2024-03-27 19:53] LABS: Adenovirus F 40/41, stool Not Detected (NotDetected); Astrovirus Not Detected (NotDetected); Campylobacter Not Detected (NotDetected); Clostridium Difficile A/B, PCR Not Detected (NotDetected); Cryptosporidium Not Detected (NotDetected); Cyclospora Cayetanesis Not Detected (NotDetected); Entamoeba histolytica Not Detected (NotDetected); Enteroaggregative E coli Not Detected (NotDetected); Enteropathogenic E coli Not Detected (NotDetected); Enterotoxigenic E coli Not Detected (NotDetected); Giardia lamblia Not Detected (NotDetected); Norovirus Not Detected (NotDetected); Plesimonas Shigalloides, PCR Not Detected (NotDetected); Rotavirus A Not Detected (NotDetected); Salmonella, PCR Not Detected (NotDetected); Sapovirus Not Detected (NotDetected); Shiga-like toxin E coli Not Detected (NotDetected); Shigella Enterovasive E coli Not Detected (NotDetected); Vibrio Cholerae Not Detected (NotDetected); Vibrio, PCR Not Detected (NotDetected); Yersinia Entercolitica, PCR Not Detected (NotDetected)
[2024-03-27 20:00] VITALS: BP 111/92; PULSE 99; O2SAT 98
[2024-03-27 20:05] LABS: Procalcitonin 0.041 ng/mL (0.0-2.0)
[2024-03-27] MEDS: ONDANSETRON 4MG/2ML VIAL 4 MG IV (20:08)
[2024-03-27] MEDS: LACTATED RINGERS 1000ML 1,000 ML 999 ML IV (20:08)
[2024-03-27] MEDS: ACETAMINOPHEN 1,000MG/100ML VIAL 1000 MG IV (20:08)
[2024-03-27 20:21] LABS: HCG,Quantitative 730 mIU/ml (0-5.42)
[2024-03-27 20:31] VITALS: BP 117/74; PULSE 91; O2SAT 100
--- NOTE | 2024-03-27 20:36 | US_ITS ---
PROCEDURE INFORMATION: Exam: US , Transvaginal Exam date and time: 03/27/2024 8:45 PM Age: 34 years old Clinical indication: Lmp or gestational age (in weeks): 02-25-2024; Other: Spotting -- nausea and vomiting; Additional info: Positive spotting TECHNIQUE: Imaging protocol: Real-time transvaginal obstetrical ultrasound of the maternal pelvis and a first trimester with image documentation. Transvaginal imaging was used for better evaluation of the fetus, adnexa, and/or cervix. Real-time duplex ultrasound scan of the arterial flow of the ovaries with B-mode, color Doppler flow and spectral waveform analysis. COMPARISON: US TRANSVAGINAL 02/20/2024 8:03 PM FINDINGS: GESTATION: Gestation: No intrauterine gestational sac. heart rate: N/A. MATERNAL: Uterus: Endometrium: 1.0 cm in thickness. Cervix: Trace fluid within cervical canal. Right ovary: No mass. Normal flow. No adnexal mass. Left ovary: No mass. Normal flow. No adnexal mass. Intraperitoneal space: Trace free fluid within pelvis. IMPRESSION: No intrauterine gestation. DDX: Early IUP, missed , ectopic .
--- NOTE | 2024-03-27 20:39 | PC.NURSE ---
Called RAD for transvag US to confirm intrauterine .
[2024-03-27] MEDS: METOCLOPRAMIDE HCL 10MG/2ML VIAL 10 MG IVP (20:46)
[2024-03-27] MEDS: PANTOPRAZOLE SODIUM 80 MG in 0.9 % SODIUM CHLORIDE 100 ML 100 MG IV (21:25)
[2024-03-27 21:43] VITALS: BP 119/77; PULSE 86; RESP 20; TEMP 36.8; O2SAT 100
== END 2024-03-27 21:55 | disposition home or self-care (01) ==
PROVIDERS: Physician Assistant; Emergency Provider Emergency Medicine; PCP Nurse Practitioner Family
DX: O26.859 Spotting complicating pregnancy, unspecified trimester (principal); O21.9 Vomiting of pregnancy, unspecified; R19.7 Diarrhea, unspecified; M54.50 Low back pain, unspecified; N93.9 Abnormal uterine and vaginal bleeding, unspecified; K92.0 Hematemesis; Z3A.01 Less than 8 weeks gestation of pregnancy
CPT/HCPCS: 76817; 80053; 83735; 84145; 84702; 85025; 85610; 86850; 87507; 96361; 96374; 96375; 99284; J0131; J2405; J2765; J7120

== ENCOUNTER 2024-03-29 12:11 | Outpatient (CLI) | payer OTHER, SELFPAY ==
[2024-03-29 13:44] LABS: HCG,Quantitative 1614 mIU/ml (0-5.42)
== END 2024-03-29 23:59 | disposition home or self-care (01) ==
LOC: LAB 12:13
PROVIDERS: PCP Nurse Practitioner Family; Visit Provider Obstetrics & Gynecology
DX: N93.9 Abnormal uterine and vaginal bleeding, unspecified (principal)
CPT/HCPCS: 36415; 84702

== ENCOUNTER 2024-03-31 10:30 | Outpatient (CLI) | payer OTHER, SELFPAY ==
[2024-03-31 11:58] LABS: HCG,Quantitative 3885 mIU/ml (0-5.42)
== END 2024-03-31 23:59 | disposition home or self-care (01) ==
LOC: LAB 10:31
PROVIDERS: PCP Nurse Practitioner Family; Visit Provider Obstetrics & Gynecology
DX: Z34.90 Encounter for supervision of normal pregnancy, unspecified, unspecified trimester (principal)
CPT/HCPCS: 36415; 84702

== ENCOUNTER 2024-04-08 18:44 | Emergency (ER) | payer OTHER, SELFPAY ==
[2024-04-08 18:45] VITALS: BP 113/85; PULSE 81; RESP 16; TEMP 36.7; O2SAT 98; BMI 27.6
[2024-04-08 20:15] VITALS: BP 000/00; PULSE 0; RESP 0; TEMP -17.7; TEMP 0
[2024-04-08 21:46] LABS: Microscopic, Urine URINE MICROSCOPIC (MICROSCOPIC)
[2024-04-08 22:11] LABS: Bilirubin,Urine Negative (Negative); Blood, Urine 3+ (Negative); Color,Urine YELLOW (Yellow); Glucose,Urine (UA) Negative (Negative); Ketones,Urine Negative (Negative); Leukocyte Esterase,Urine TRACE (Negative); Nitrate,Urine Negative (Negative); Protein,Urine 1+ (Negative); Urobilinogen,Urine 0.2 EU/dl (0.2)
[2024-04-08 22:26] LABS: Amorphous Sediment,Urine 3+ /lpf; Appearance,Urine Cloudy (Clear); Bacteria,Urine 1+ /lpf; PH,Urine >= 9.0 (5.0-8.5); Squamous Epithelial Cell,Urine 20-50 #/hpf (0-5)
== END 2024-04-08 20:50 | disposition left against medical advice (07) ==
PROVIDERS: Emergency Provider Emergency Medicine; PCP Nurse Practitioner Family
DX: Z53.21 Procedure and treatment not carried out due to patient leaving prior to being seen by health care provider (principal)
CPT/HCPCS: 81001

== ENCOUNTER 2024-04-10 10:13 | Emergency (ER) | payer OTHER, SELFPAY ==
[2024-04-10] VITALS (7 sets, daily range): BP systolic 98–123; BP diastolic 65–85; PULSE 72–85; RESP 16; TEMP 36.7; O2SAT 96–100; BMI 26.9
--- NOTE | 2024-04-10 11:48 | ED_ITS ---
Discharge Plan Disposition Patient Disposition: Home, Self-Care Chief Complaint: OB/Uterine Contractions Prescriptions Prescriptions: No Action sodium,potassium,mag sulfates [Suprep Bowel Prep Kit] 17.5-3.13-1.6 gram recon soln See Rx Instructions PO .COMPLEX Qty: 354 0RF Rx Instructions: DILUTE; drink full amount early evening before AND next morning at least 4-5 hr before procedure; follow w 960 mL water PO ondansetron 4 mg tablet,disintegrating 4 mg PO Q8H PRN (Reason: nausea and vomiting) 4 Days Qty: 12 0RF Referrals Follow up/Referrals: Norma Friedman APRN [Primary Care Provider] - See instructions Print Language Print Language: Citizen Of [place] Discharge ED Provider: Travis Carrillo General Adult HPI General Chief complaint: OB/Uterine Contractions Stated complaint: 6 wks antepartum pain/vaginal bleeding Time Seen by Provider: 04/10/24 11:18 Mode of Arrival: Wheelchair Source of Information: Patient Description of Symptoms (Recalled from ER Triage Doc. 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 this occured around 0830. pt states around 0930 she started having dark red vaginal spotting. pt states she is approximately 6wks . LMP 02/25/24. pt states last week she had a confirmatory transvaginal US. pt reports she has 5 living children and this is her 9th . pt also reports LLQ, L flank pain that is constant and aching in nature. pt has pelvic/vaginal pressure that is intermittant. pt rates her pain 7/10. she also reports nausea. History of Present Illness HPI narrative: Patient is a 34-year-old female G9, P5 EGA 67 weeks follows with outside OB who presents emergency department for evaluation of vaginal bleeding. Patient was head butted in the suprapubic region by a goat earlier this morning. Originally she had no pain, no external trauma however over the course the morning she has had some lower abdominal pain and vaginal spotting. She had an ultrasound with definitive intrauterine last week and is positive Rh type. No other trauma. No other acute complaints at this time. Related Data Previous Rx's ?Medication ?Instructions ?Recorded ondansetron 4 mg disintegrating 4 mg PO Q8H PRN nausea and 02/20/24 tablet vomiting 4 days #12 tabs sodium,potassium,mag sulfates 17.5 See Rx Instructions PO .COMPLEX 03/08/24 gram-3.13 gram-1.6 gram oral soln #354 mL (Suprep Bowel Prep Kit) Allergies Allergy/AdvReac Type Severity Reaction Status Date / Time No Known Allergies Allergy Verified 04/10/24 10:45 PFSH [facility] Disclaimer: The information contained in this section may have been updated after the patient was seen, as this information can be updated by other users. Medical History Missed GERD (gastroesophageal reflux disease) Grand multipara History of recurrent miscarriages History of miscarriage, currently History of anemia Urinary tract infection History of gastroesophageal reflux (GERD) Endometriosis Dysmenorrhea Menorrhagia History of miscarriage History of fainting History of heavy periods Surgical History History of tympanostomy tube placement History of section Hx of section Family History Other Family history of diabetes mellitus type II Family history of myocardial infarction 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 Have you lived/traveled outside US in past 30 days?: No Contact w/someone who lives/traveled outside US past 30 days?: No Exposure to someone with infectious disease in past 14 days?: No Do you have a fever (greater than 100.4 F or 38 C)?: No Have you tested positive for COVID-19: No Exposed to someone with COVID-19 in past 14 days?: No Do you have a sore throat?: No Do you have a cough?: No Do you have any weakness?: No Do you have any diarrhea?: No Are you experiencing any unusual bleeding?: No Do you have any muscle aches/pain?: No Do you have any abdominal pain?: No Are you experiencing loss of taste or smell?: No Other Medical History Have you received the Flu Vaccine for this season: No Have you received the Pneumonia Vaccine: No ROS Obtained: Yes Systems reviewed as appropriate & no additional complaints except as documented Physical Exam General General appearance: alert and in no apparent distress Head Head exam: atraumatic and normocephalic Eye Eye exam: Present PERRL ENT ENT exam: Present mucous membranes moist Neck Neck exam: Present normal inspection Chest Chest inspection: Present normal inspection and symmetric chest wall rise Respiratory Respiratory exam: Present normal lung sounds bilaterally; Absent respiratory distress Cardiovascular Cardiovascular exam: Present regular rate and normal rhythm Abdominal Exam Abdominal exam: Present soft and tenderness (Mild, suprapubic); Absent rebound or rigidity Bimanual exam: Present other (Freezing Machine Operator present, no external vaginal trauma, no trauma to the introitus.) Extremities Exam Extremities exam: Present normal inspection Neurological Exam Neurological exam: Present alert Psychiatric Psychiatric exam: Present normal affect Skin Skin exam: Present warm and dry Medical Decision Making Medical Records Screening: Per USPSTF and CDC recommendations, given the prevalence of disease in our region, it is our hospital?s policy to screen for HIV and viral Hepatitis for all patients aged 18 and over and those with ongoing risk factors. Maxime Inquiry Pt receiving controlled substance: No Vital Signs: 04/10/24 10:15 04/10/24 10:20 04/10/24 10:52 Temperature 98.1 F Temperature Source Oral Pulse Rate 72 81 Pulse Rate [Left] 85 Respiratory Rate 16 Blood Pressure 118/84 122/79 Blood Pressure [Right Arm] 118/84 Blood Pressure Mean [Right Arm] 95 Blood Pressure Source [Right Arm] Automatic Cuff Blood Pressure Position [Right Arm] Sitting 02 Sat by Pulse Oximetry 96 96 99 Oxygen Delivery Method Room Air Room Air Room Air 04/10/24 11:00 Temperature Temperature Source Pulse Rate 81 Pulse Rate [Left] Respiratory Rate Blood Pressure 123/85 Blood Pressure [Right Arm] Blood Pressure Mean [Right Arm] Blood Pressure Source [Right Arm] Blood Pressure Position [Right Arm] 02 Sat by Pulse Oximetry 100 Oxygen Delivery Method Room Air Medical Decision Narrative: In summary patient is a 34-year-old female past medical history described above who presents emergency department for evaluation of vaginal spotting in the setting of head butted by a goat in the setting of 6 to 7 weeks . Patient is hemodynamically stable nontoxic-appearing upon arrival, afebrile. [id number] ultrasound at bedside shows gestational sac in the uterus, patient has tilted uterus and is making optimal imaging difficult. However shared decision making discussion was had at bedside and patient has had definitive imaging with intrauterine and further workup from that standpoint will be deferred. Images were not saved to permanent archive therefore no formal note is warranted. She is mildly tender in the suprapubic region and has vaginal spotting concerning for threatened miscarriage. This was relayed to patient at bedside. In terms of patient I do not think that she sustained enough trauma to warrant CT angio of her abdomen and pelvis. Shared decision making discussion was had with respect to that and we will proceed with outpatient observation she was given multiple extensive return precautions and verbalized understanding. She was also get educated as to the possibility of spontaneous miscarriage and will follow-up with her OB in 48 hours. Patient is Rh+ does not need RhoGAM Critical Care Critical Care Time Critical Care Time: No
== END 2024-04-10 12:30 | disposition home or self-care (01) ==
PROVIDERS: Emergency Provider Emergency Medicine; PCP Nurse Practitioner Family
DX: O46.90 Antepartum hemorrhage, unspecified, unspecified trimester (principal); R10.32 Left lower quadrant pain; R11.0 Nausea; Z3A.01 Less than 8 weeks gestation of pregnancy
CPT/HCPCS: 84702; 99283

== ENCOUNTER 2024-04-18 21:39 | Emergency (ER) | payer OTHER, SELFPAY ==
[2024-04-18 22:00] VITALS: BP 128/76; PULSE 99; RESP 14; TEMP 37; O2SAT 98; BMI 26.9
--- NOTE | 2024-04-18 22:08 | ED_ITS ---
Discharge Plan Disposition Patient Disposition: Home, Self-Care Chief Complaint: Vaginal Bleeding Prescriptions Prescriptions: No Action promethazine 12.5 mg tablet 12.5 mg PO DAILY progesterone micronized 200 mg capsule 200 mg PO DAILY Referrals Follow up/Referrals: Norma Friedman APRN [Primary Care Provider] - See instructions Activity Restrictions/Add. Instructions Additional Instructions/Restrictions: Follow-up on the portal for your final hCG quantification. Call your family doctor to establish care for this visit to the emergency department and schedule follow-up within 48 hours to ensure improvement. If you have any worsening of your condition or any other concerning signs or symptoms, return to the emergency department or your primary care doctor for further evaluation. Subchorionic hemorrhage was found to the right side of the gestational sac and superiorly, for reference for your AMMONIUM HYDROXIDE OPERATOR to check on. Clinical Impressions Clinical Impression: Subchorionic hematoma Print Language Print Language: [place] Discharge ED Provider: Nehemiah Begum General Adult HPI <Brandee Pimentel APRN - Last Filed: 04/18/24 22:09> General Chief complaint: Vaginal Bleeding Stated complaint: 7-8 weeks with cramping,bleeding Time Seen by Provider: 04/18/24 21:49 Mode of Arrival: Ambulatory Source of Information: Patient Description of Symptoms (Recalled from ER Triage Doc. by RN): Pt states she is high risk and started bleeding a few hours ago. Pt states it is mainly spotting Related Data Home Medications ?Medication ?Instructions ?Recorded ?Confirmed progesterone micronized 200 mg 200 mg PO DAILY 04/18/24 04/18/24 capsule promethazine 12.5 mg tablet 12.5 mg PO DAILY 04/18/24 04/18/24 Allergies Allergy/AdvReac Type Severity Reaction Status Date / Time No Known Allergies Allergy Verified 04/10/24 10:45 <Nehemiah Begum MD - Last Filed: 04/18/24 23:06> History of Present Illness HPI narrative: Please note that above description of symptoms, in this electronic medical record under categorization of recalled from ER triage doctor by RN are reflective of an initial nursing assessment, however, is not reflective of my full history and physical exam that was personally taken and clarified. Consequentially, this preceding description of symptoms, which may include the patient's categorized chief complaint in the EMR, do not reflect my personal clinical impression, and the ultimate description of history of present illness and patient stated complaints should be deferred to this section of the note. Unless stated otherwise or congruent with this section of the note, additional signs, symptoms, or incongruence should be interpreted as inaccurate with my clinical impression. [facility] <Brandee Pimentel APRN - Last Filed: 04/18/24 22:09> [facility] Disclaimer: The information contained in this section may have been updated after the patient was seen, as this information can be updated by other users. Medical History Missed GERD (gastroesophageal reflux disease) Grand multipara History of recurrent miscarriages History of miscarriage, currently History of anemia Urinary tract infection History of gastroesophageal reflux (GERD) Endometriosis Dysmenorrhea Menorrhagia History of miscarriage History of fainting History of heavy periods Surgical History History of tympanostomy tube placement History of section Hx of section Family History Other Family history of diabetes mellitus type II Family history of myocardial infarction 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 Have you lived/traveled outside US in past 30 days?: No Contact w/someone who lives/traveled outside US past 30 days?: No Exposure to someone with infectious disease in past 14 days?: No Do you have a fever (greater than 100.4 F or 38 C)?: No Have you tested positive for COVID-19: No Exposed to someone with COVID-19 in past 14 days?: No Do you have a sore throat?: No Do you have a cough?: No Do you have any weakness?: No Do you have any diarrhea?: No Are you experiencing any unusual bleeding?: No Do you have any muscle aches/pain?: No Do you have any abdominal pain?: No Are you experiencing loss of taste or smell?: No Other Medical History Have you received the Flu Vaccine for this season: No Have you received the Pneumonia Vaccine: No <Nehemiah Begum MD - Last Filed: 04/18/24 23:06> ROS Obtained: Yes All systems reviewed & no additional complaints except as documented Physical Exam <Nehemiah Begum MD - Last Filed: 04/18/24 23:06> General General appearance: alert Head Head exam: atraumatic and normocephalic Eye Eye exam: Present normal appearance, PERRL and EOMI Neck Neck exam: Present normal inspection, full ROM and trachea midline Respiratory Respiratory exam: Absent respiratory distress, wheezes, stridor, accessory muscle use or prolonged expiratory phase Cardiovascular Cardiovascular exam: Present other (Pulses equal symmetric in upper and lower extremities) Abdominal Exam Abdominal exam: Present soft; Absent distention, tenderness or pulsatile mass Extremities Exam Extremities exam: Absent edema Neurological Exam Neurological exam: Present alert, oriented X3 and CN II-XII intact; Absent motor sensory deficit Skin Skin exam: Present warm and dry; Absent diaphoresis or erythema Medical Decision Making <Brandee Pimentel APRN - Last Filed: 04/18/24 22:09> Medical Records Screening: Per USPSTF and CDC recommendations, given the prevalence of disease in our region, it is our hospital?s policy to screen for HIV and viral Hepatitis for all patients aged 18 and over and those with ongoing risk factors. Vital Signs: 04/18/24 22:00 04/18/24 22:09 04/18/24 22:11 Temperature 98.6 F 98.6 F Temperature Source Oral Oral Oral Pulse Rate 89 Pulse Rate [Right Radial] 99 H Respiratory Rate 14 14 Blood Pressure 128/76 Blood Pressure [Right Arm] 128/76 Blood Pressure Mean [Right Arm] 93 Blood Pressure Source [Right Arm] Automatic Cuff 02 Sat by Pulse Oximetry 98 98 Oxygen Delivery Method Room Air Lab Data Lab Results 04/18/24 21:46: Urine Color Yellow, Urine Appearance Cloudy, Urine pH >= 9.0 H, Ur Specific [place] 1.015, Urine Protein 1+ A, Urine Glucose (UA) Negative, Urine Ketones Negative, Urine Blood Trace A, Urine Nitrate Negative, Urine Bilirubin Negative, Urine Urobilinogen 0.2, Ur Leukocyte Esterase Negative, Urine RBC 10-20, Urine WBC Occasional, Ur Squamous Epith Cells 5-10, Amorphous Sediment 3+, Urine Bacteria 3+ 04/18/24 22:23: WBC 10.6, RBC 4.16 L, Hgb 11.9 L, Hct 36.0 L, MCV 86.5, MCH 28.6, MCHC 33.1, RDW 12.8, Plt Count 261, MPV 12.0 H, Neut % (Auto) 61.9, Lymph % (Auto) 29.3, [place] % (Auto) 7.2, Eos % (Auto) 1.0, Baso % (Auto) 0.4, Neut # (Auto) 6.6, Lymph # (Auto) 3.1, [place] # (Auto) 0.8, Eos # (Auto) 0.1, Baso # (Auto) 0.0, Sodium 136, Potassium 3.7, Chloride 104, Carbon Dioxide 22, Anion Gap 13.7, BUN 10, Creatinine 0.50 L, Estimated Creat Clear 174, Estimated GFR 142, Est GFR ( Amer) 172, Glucose 105 H, Calcium 8.6, Total Bilirubin 0.4, AST 33, ALT 20, Alkaline Phosphatase 53, Total Protein 7.4, Albumin 4.5, Globulin 2.9, Albumin/Globulin Ratio 1.6 04/18/24 22:23 04/18/24 22:23 Orders (Tests/Meds): ORDERS Category Date Time Status POCUS Point of Care (ER Only) Stat Exams 04/18/24 21:59 Completed CBC w/Auto Diff [Complete Blood Count Auto Diff] Stat Lab 04/18/24 22:23 Completed CMP [Comprehensive Metabolic Panel] Stat Lab 04/18/24 22:23 Results HCG,Quantitative Stat Lab 04/18/24 22:23 Results UA [Urinalysis and Microscopic] Stat Lab 04/18/24 21:46 Completed Urine Culture Stat Micro 04/18/24 21:46 Received <Nehemiah Begum MD - Last Filed: 04/18/24 23:06> Medical Records Medical records reviewed: Yes I reviewed the patient's medical records. Maxime Inquiry Pt receiving controlled substance: No Maxime was queried for this patient: No Vital Signs: 04/18/24 22:00 04/18/24 22:09 04/18/24 22:11 Temperature 98.6 F 98.6 F Temperature Source Oral Oral Oral Pulse Rate 89 Pulse Rate [Right Radial] 99 H Respiratory Rate 14 14 Blood Pressure 128/76 Blood Pressure [Right Arm] 128/76 Blood Pressure Mean [Right Arm] 93 Blood Pressure Source [Right Arm] Automatic Cuff 02 Sat by Pulse Oximetry 98 98 Oxygen Delivery Method Room Air Lab Data Lab Results 04/18/24 21:46: Urine Color Yellow, Urine Appearance Cloudy, Urine pH >= 9.0 H, Ur Specific [place] 1.015, Urine Protein 1+ A, Urine Glucose (UA) Negative, Urine Ketones Negative, Urine Blood Trace A, Urine Nitrate Negative, Urine Bilirubin Negative, Urine Urobilinogen 0.2, Ur Leukocyte Esterase Negative, Urine RBC 10-20, Urine WBC Occasional, Ur Squamous Epith Cells 5-10, Amorphous Sediment 3+, Urine Bacteria 3+ 04/18/24 22:23: WBC 10.6, RBC 4.16 L, Hgb 11.9 L, Hct 36.0 L, MCV 86.5, MCH 28.6, MCHC 33.1, RDW 12.8, Plt Count 261, MPV 12.0 H, Neut % (Auto) 61.9, Lymph % (Auto) 29.3, [place] % (Auto) 7.2, Eos % (Auto) 1.0, Baso % (Auto) 0.4, Neut # (Auto) 6.6, Lymph # (Auto) 3.1, [place] # (Auto) 0.8, Eos # (Auto) 0.1, Baso # (Auto) 0.0, Sodium 136, Potassium 3.7, Chloride 104, Carbon Dioxide 22, Anion Gap 13.7, BUN 10, Creatinine 0.50 L, Estimated Creat Clear 174, Estimated GFR 142, Est GFR ( Amer) 172, Glucose 105 H, Calcium 8.6, Total Bilirubin 0.4, AST 33, ALT 20, Alkaline Phosphatase 53, Total Protein 7.4, Albumin 4.5, Globulin 2.9, Albumin/Globulin Ratio 1.6 Orders (Tests/Meds): ORDERS Category Date Time Status POCUS Point of Care (ER Only) Stat Exams 04/18/24 21:59 Completed CBC w/Auto Diff [Complete Blood Count Auto Diff] Stat Lab 04/18/24 22:23 Completed CMP [Comprehensive Metabolic Panel] Stat Lab 04/18/24 22:23 Results HCG,Quantitative Stat Lab 04/18/24 22:23 Results UA [Urinalysis and Microscopic] Stat Lab 04/18/24 21:46 Completed Urine Culture Stat Micro 04/18/24 21:46 Received Medical Decision Narrative: 34-year-old female presenting with vaginal bleeding during . States that she is 7 or 8 weeks . States that she started having spotting earlier, now having passage of 1 small clot. Last hCG was drawn 9 days prior to this was around 38,000. Called her AMMONIUM HYDROXIDE OPERATOR who recommended she come to the emergency department given the constellation of symptoms. States that she is having lower abdominal/pelvic cramping. Denies intercourse. Has had 3 miscarriages as her 3 most recent pregnancies and concerned that this may be another miscarriage.. History was obtained via conversation with patient. On arrival, patient hemodynamically stable, alert, oriented x4, appropriate, GCS 15, moving all extremities spontaneously, pupils equal and reactive to light. Full physical exam performed and significant for anxious female no acute distress. Abdomen soft, nontender. Nontachycardic, normotensive. Differential includes miscarriage, impending miscarriage, subchorionic hemorrhage, cervical change, implantation bleeding, among others. Labs obtained, bedside [id number] ultrasound was obtained as well. On independent interpretation of workup, nonactionable hematologic labs. Bedside [id number] ultrasound with heart rate in the 150s, viable , small amount of subchorionic hemorrhage located superiorly and to the right. Far less than 10%. On reevaluation, patient resting comfortably. Given patient presentation, workup, history, this most likely represents subchorionic hemorrhage and early vaginal bleeding in . Because patient at baseline without signs or symptoms of clinical decompensation, deemed appropriate for discharge. Results were relayed to patient who voiced understanding and were agreeable to outpatient management and follow up. I discussed my clinical impression with patient and answered all questions. At this time, the evidence for any other entities in the differential is insufficient to warrant any further testing or ED observation. This was explained as well. Advisory was given that persistent or worsening symptoms require further evaluation. I confirmed the understanding of this discussion. [employer] disclaimer Much of this encounter note is an electronic diversified crops i farmworker spoken language to printed text. Electronic diversified crops i farmworker of the spoken language may permit errors. Although I have reviewed the note, some errors may still exist. Procedures <Nehemiah Begum MD - Last Filed: 04/18/24 23:06> Limited Ultrasound Indication:: Limited OB ultrasound Indication: Vaginal bleeding early Identified structures: -Uterus -Left adnexa -Right adnexa -Pouch of Juan J Findings: Uterus: Effective IUP heart rate in the 150s Right adnexa: -Normal Left adnexa: -Normal Cul de sac: -free fluid absent Impression: -IUP: Present with heart rate in the 150s -Ectopic : Absent -Free fluid: Absent Images were saved to permanent archive The study was technically adequate CPT Transabdominal: 03271-07 This study was performed by me, and I personally interpreted all images/videos. Based on my clinical judgement, these images were adequate and did not necessitate further imaging Critical Care <Nehemiah Begum MD - Last Filed: 04/18/24 23:06> Critical Care Time Critical Care Time: No
[2024-04-18 22:09] VITALS: BP 128/76; PULSE 89; RESP 14; TEMP 37; O2SAT 98
[2024-04-18 22:28] LABS: Microscopic, Urine URINE MICROSCOPIC (MICROSCOPIC)
[2024-04-18 22:30] LABS: Basophils % 0.4 % (0.1-2.0); Eosinophils # 0.1 K/mm3 (0.0-0.4); Hemoglobin 11.9 g/dL (12.2-16.2); Lymphocytes # 3.1 K/mm3 (0.7-4.5); Lymphocytes % 29.3 % (10-50); Mean Corpuscular HGB Conc 33.1 g/dL (31.8-35.4); Mean Corpuscular Hemoglobin 28.6 pg (27.0-31.2); Mean Corpuscular Volume 86.5 fl (81-99); Monocytes # 0.8 K/mm3 (0.1-1.0); Monocytes % 7.2 % (1.7-9.3); Neutrophils # 6.6 K/mm3 (1.8-7.8); Neutrophils % 61.9 % (37.0-80.0); Platelet Count 261 K/mm3 (142-424); Red Blood Count 4.16 M/mm3 (4.20-5.40); Red Cell Distribution Width 12.8 % (11.5-17.5); White Blood Count 10.6 K/mm3 (4.8-10.8)
[2024-04-18 22:37] LABS: Albumin Level 4.5 g/dl (3.5-5.0); Chloride 104 mmol/L (98-107); Potassium 3.7 mmoL/L (3.5-5.1); Sodium 136 mmol/L (136-145)
[2024-04-18 22:40] LABS: Alanine Aminotransferase 20 U/L (12-78); Albumin/Globulin Ratio 1.6 (1.1-1.8); Alkaline Phosphatase 53 U/L (38-126); Anion Gap 13.7 mEq/L (5-15); Aspartate Amino Transferase 33 U/L (14-36); Bilirubin,Total 0.4 mg/dl (0.2-1.3); Blood Urea Nitrogen 10 mg/dl (7-17); Calcium 8.6 mg/dl (8.4-10.2); Carbon Dioxide 22 mmol/L (22.0-30.0); Creatinine Clearance Estimated 174 mL/min (50-200); Estimated Glomerular Filt Rate 142 ml/min (>60); GFR (African American) 172 ML/MIN (>60); Globulin 2.9 g/dL (1.3-3.2); Glucose 105 mg/dl (74-100); Total Protein,Serum 7.4 g/dl (6.3-8.2)
[2024-04-18 22:43] LABS: Blood, Urine Trace (Negative); Color,Urine Yellow (Yellow); Glucose,Urine (UA) Negative (Negative); Ketones,Urine Negative (Negative); PH,Urine >= 9.0 (5.0-8.5); Protein,Urine 1+ (Negative); Specific Gravity, Urine 1.015 (1.005-1.030)
[2024-04-18 22:44] LABS: Bilirubin,Urine Negative (Negative); Leukocyte Esterase,Urine Negative (Negative); Nitrate,Urine Negative (Negative); Urobilinogen,Urine 0.2 EU/dl (0.2)
[2024-04-18 22:54] LABS: Appearance,Urine Cloudy (Clear)
[2024-04-18 22:55] LABS: Amorphous Sediment,Urine 3+ /lpf; Bacteria,Urine 3+ /lpf; WBC,Urine Occasional #/hpf (0-3)
[2024-04-18 23:15] VITALS: BP 112/79; PULSE 92; RESP 14; TEMP 36.7; O2SAT 100
[2024-04-18 23:32] LABS: HCG,Quantitative 99837 mIU/ml (0-5.42)
== END 2024-04-18 23:17 | disposition home or self-care (01) ==
PROVIDERS: Emergency Provider Emergency Medicine; PCP Nurse Practitioner Family
DX: O41.8X90 Other specified disorders of amniotic fluid and membranes, unspecified trimester, not applicable or unspecified (principal); O26.851 Spotting complicating pregnancy, first trimester; O09.91 Supervision of high risk pregnancy, unspecified, first trimester
CPT/HCPCS: 76815; 80053; 81001; 84702; 85025; 87086; 99284

== ENCOUNTER 2024-05-19 21:35 | Emergency (ER) | payer OTHER, SELFPAY ==
[2024-05-19 21:48] VITALS: BMI 26.2
[2024-05-19 21:50] VITALS: BP 119/76; PULSE 90; RESP 17; TEMP 37.1; O2SAT 98; BMI 26.2
[2024-05-19] MEDS: ONDANSETRON 4MG/2ML VIAL 4 MG IV (21:52)
[2024-05-19 21:59] LABS: Basophils % 0.3 % (0.1-2.0); Eosinophils # 0.1 K/mm3 (0.0-0.4); Eosinophils % 1.2 % (0.1-12.0); Hematocrit 36.4 % (37.0-47.0); Hemoglobin 12.6 g/dL (12.2-16.2); Lymphocytes # 3.2 K/mm3 (0.7-4.5); Lymphocytes % 26.2 % (10-50); Mean Corpuscular HGB Conc 34.6 g/dL (31.8-35.4); Mean Corpuscular Hemoglobin 29.6 pg (27.0-31.2); Mean Corpuscular Volume 85.4 fl (81-99); Mean Platelet Volume 11.4 fl (7.4-10.4); Monocytes # 0.9 K/mm3 (0.1-1.0); Monocytes % 7.4 % (1.7-9.3); Neutrophils # 7.9 K/mm3 (1.8-7.8); Neutrophils % 64.7 % (37.0-80.0); Nucleated Red Blood Cells # 0 10^3/uL; Nucleated Red Blood Cells % 0 %; Platelet Count 296 K/mm3 (142-424); Red Blood Count 4.26 M/mm3 (4.20-5.40); Red Cell Distribution Width-SD 40.2 fL; White Blood Count 12.2 K/mm3 (4.8-10.8)
[2024-05-19 22:00] LABS: Albumin Level 4.1 g/dl (3.5-5.0); Chloride 102 mmol/L (98-107); Sodium 137 mmol/L (136-145)
[2024-05-19 22:01] LABS: Potassium 3.6 mmoL/L (3.5-5.1)
[2024-05-19] MEDS: 0.9 % SODIUM CHLORIDE 1000ML 1,000 ML 999 ML IV (22:01)
[2024-05-19 22:03] LABS: Alanine Aminotransferase 16 U/L (12-78); Albumin/Globulin Ratio 1.1 (1.1-1.8); Alkaline Phosphatase 73 U/L (38-126); Anion Gap 14.6 mEq/L (5-15); Aspartate Amino Transferase 26 U/L (14-36); Bilirubin,Total 0.3 mg/dl (0.2-1.3); Blood Urea Nitrogen 10 mg/dl (7-17); Carbon Dioxide 24 mmol/L (22.0-30.0); Creatinine Clearance Estimated 146 mL/min (50-200); Estimated Glomerular Filt Rate 115 ml/min (>60); GFR (African American) 139 ML/MIN (>60); Globulin 3.7 g/dL (1.3-3.2); Lipase 120 U/L (23-300); Total Protein,Serum 7.8 g/dl (6.3-8.2)
[2024-05-19 22:04] LABS: Calcium 8.9 mg/dl (8.4-10.2); Glucose 110 mg/dl (74-100)
[2024-05-19 22:10] LABS: Lactate Venous 1.4 mmol/L (0.4-2.0); VBG Base Excess -3.6 mmol/L (-2.4-2.3); VBG HCO3 20.7 mmol/L (23-30); VBG Oxygen Saturation 96.7 % (50-70); VBG PH 7.43 mmol/L (7.31-7.41); VBG PO2 80.3 mmol/L (28-40); VBG Total CO2 21.7 mmol/L (23-27)
[2024-05-19 22:31] VITALS: BP 119/71; PULSE 84; RESP 24; O2SAT 99
--- NOTE | 2024-05-19 22:51 | HMH.EDGENADL ---
Discharge Plan Disposition Patient Disposition: Home, Self-Care Prescriptions Prescriptions: New cephalexin 500 mg capsule 500 mg PO QID 5 Days Qty: 20 0RF No Action promethazine 12.5 mg tablet 12.5 mg PO DAILY progesterone micronized 200 mg capsule 200 mg PO DAILY Referrals Follow up/Referrals: Norma Friedman APRN [Primary Care Provider] - See instructions Activity Restrictions/Add. Instructions Additional Instructions/Restrictions: Please follow-up with your primary care provider. Please return to the emergency department if you develop any new or worsening symptoms or become concerned for your health. Please take cephalexin as prescribed for treatment of possible urinary tract infection. Clinical Impressions Clinical Impression: Vomiting affecting UTI (urinary tract infection) Qualifiers: Hematuria presence: without hematuria Instructions Patient Instructions: DI for Diarrhea and Traveler's Diarrhea -- Adult, DI for Diarrhea and Traveler's Diarrhea -- Child, DI for Nausea -- Adult, DI for Nausea -- Child Print Language Print Language: Greek Discharge ED Provider: Edilberto Herndon [facility] Adult HPI <Nehemiah Begum MD - Last Filed: 05/19/24 22:58> General Chief complaint: Nausea/Vomiting/Diarrhea Stated complaint: 12 weeks ,N/V,CP,Pelvic with bleeding Time Seen by Provider: 05/19/24 21:51 Mode of Arrival: Ambulatory Source of Information: Patient Description of Symptoms (Recalled from ER Triage Doc. by RN): Patient ambulatory to ED with complaints of constant nausea and vomiting since 1400 today. Patient states that she is 12 weeks , and recently dx with hyperemesis gravidarum. She states that she has noticed slight vaginal spotting, along with pelvic pain. History of Present Illness HPI narrative: Please note that above description of symptoms, in this electronic medical record under categorization of recalled from ER triage doctor by RN are reflective of an initial nursing assessment, however, is not reflective of my full history and physical exam that was personally taken and clarified. Consequentially, this preceding description of symptoms, which may include the patient's categorized chief complaint in the EMR, do not reflect my personal clinical impression, and the ultimate description of history of present illness and patient stated complaints should be deferred to this section of the note. Unless stated otherwise or congruent with this section of the note, additional signs, symptoms, or incongruence should be interpreted as inaccurate with my clinical impression. Related Data Home Medications ?Medication ?Instructions ?Recorded ?Confirmed progesterone micronized 200 mg 200 mg PO DAILY 04/18/24 04/18/24 capsule promethazine 12.5 mg tablet 12.5 mg PO DAILY 04/18/24 04/18/24 Previous Rx's ?Medication ?Instructions ?Recorded cephalexin 500 mg capsule 500 mg PO QID 5 days #20 caps 05/19/24 Allergies Allergy/AdvReac Type Severity Reaction Status Date / Time No Known Allergies Allergy Verified 04/10/24 10:45 [facility] <Nehemiah Begum MD - Last Filed: 05/19/24 22:58> [facility] Disclaimer: The information contained in this section may have been updated after the patient was seen, as this information can be updated by other users. Medical History Missed GERD (gastroesophageal reflux disease) Grand multipara History of recurrent miscarriages History of miscarriage, currently History of anemia Urinary tract infection History of gastroesophageal reflux (GERD) Endometriosis Dysmenorrhea Menorrhagia History of miscarriage History of fainting History of heavy periods Surgical History History of tympanostomy tube placement History of section Hx of section Family History Other Family history of diabetes mellitus type II Family history of myocardial infarction 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 Have you lived/traveled outside [place] in past 30 days?: No Contact w/someone who lives/traveled outside [place] past 30 days?: No Exposure to someone with infectious disease in past 14 days?: No Do you have a fever (greater than 100.4 F or 38 C)?: No Have you tested positive for COVID-19: No Exposed to someone with COVID-19 in past 14 days?: No Do you have a sore throat?: No Do you have a cough?: No Do you have any weakness?: Yes Do you have any diarrhea?: Yes Are you experiencing any unusual bleeding?: Yes Do you have any muscle aches/pain?: Yes Do you have any abdominal pain?: Yes Are you experiencing loss of taste or smell?: No Other Medical History Have you received the Flu Vaccine for this season: No Have you received the Pneumonia Vaccine: No <Nehemiah Begum MD - Last Filed: 05/19/24 22:58> ROS Obtained: Yes All systems reviewed & no additional complaints except as documented Physical Exam <Nehemiah Begum MD - Last Filed: 05/19/24 22:58> General General appearance: alert Head Head exam: atraumatic and normocephalic Eye Eye exam: Present normal appearance, PERRL and EOMI Neck Neck exam: Present normal inspection, full ROM and trachea midline Respiratory Respiratory exam: Absent respiratory distress, wheezes, stridor, accessory muscle use or prolonged expiratory phase Cardiovascular Cardiovascular exam: Present other (Pulses equal symmetric in upper and lower extremities) Abdominal Exam Abdominal exam: Present soft; Absent distention, tenderness or pulsatile mass Extremities Exam Extremities exam: Absent edema Neurological Exam Neurological exam: Present alert, oriented X3 and CN II-XII intact; Absent motor sensory deficit Skin Skin exam: Present warm and dry; Absent diaphoresis or erythema Medical Decision Making <Nehemiah Begum MD - Last Filed: 05/19/24 22:58> Medical Records Medical records reviewed: Yes I reviewed the patient's medical records. Screening: Per USPSTF and CDC recommendations, given the prevalence of disease in our region, it is our hospital?s policy to screen for HIV and viral Hepatitis for all patients aged 18 and over and those with ongoing risk factors. Maxime Inquiry Pt receiving controlled substance: No Maxime was queried for this patient: No Vital Signs: 05/19/24 21:50 Temperature 98.7 F Temperature Source Oral Pulse Rate [Left] 90 Respiratory Rate 17 Blood Pressure [Right Arm] 119/76 Blood Pressure Mean [Right Arm] 90 Blood Pressure Source [Right Arm] Automatic Cuff Blood Pressure Position [Right Arm] Supine 02 Sat by Pulse Oximetry 98 Oxygen Delivery Method Room Air Lab Data Lab Results 05/19/24 21:47: WBC 12.2 H, RBC 4.26, Hgb 12.6, Hct 36.4 L, MCV 85.4, MCH 29.6, MCHC 34.6, RDW 13.0, Plt Count 296, MPV 11.4 H, Neut % (Auto) 64.7, Lymph % (Auto) 26.2, [place] % (Auto) 7.4, Eos % (Auto) 1.2, Baso % (Auto) 0.3, Neut # (Auto) 7.9 H, Lymph # (Auto) 3.2, [place] # (Auto) 0.9, Eos # (Auto) 0.1, Baso # (Auto) 0.0, Sodium 137, Potassium 3.6, Chloride 102, Carbon Dioxide 24, Anion Gap 14.6, BUN 10, Creatinine 0.60, Estimated Creat Clear 146, Estimated GFR 115, Est GFR ( Amer) 139, Glucose 110 H, Calcium 8.9, Total Bilirubin 0.3, AST 26, ALT 16, Alkaline Phosphatase 73, Total Protein 7.8, Albumin 4.1, Globulin 3.7 H, Albumin/Globulin Ratio 1.1, Lipase 120 05/19/24 21:51: VBG pH 7.43 H, VBG pCO2 32.0 L, VBG pO2 80.3 H, VBG HCO3 20.7 L, VBG Total CO2 21.7 L, VBG O2 Saturation 96.7 H, VBG Base Excess -3.6 L, VBG Lactic Acid 1.4 05/19/24 22:51: Urine Color Yellow, Urine Appearance Clear, Urine pH 8.5, Ur Specific [place] 1.015, Urine Protein Negative, Urine Glucose (UA) Negative, Urine Ketones Negative, Urine Blood Negative, Urine Nitrate Negative, Urine Bilirubin Negative, Urine Urobilinogen 0.2, Ur Leukocyte Esterase Negative, Urine RBC None, Urine WBC 3-5, Ur Squamous Epith Cells Occasional, Urine Bacteria 1+ 05/19/24 21:47 05/19/24 21:47 Orders (Tests/Meds): ED MEDICATIONS Generic Name Dose Route Start Last Admin Trade Name Freq PRN Reason Stop Dose Admin Cephalexin HCl 500 mg 05/19/24 23:32 Cephalexin 500mg Capsule PO 05/19/24 23:33 ONCE ONE Discontinued Medications Generic Name Dose Route Start Last Admin Trade Name Freq PRN Reason Stop Dose Admin Sodium Chloride 1,000 mls @ 999 mls/hr 05/19/24 21:51 05/19/24 22:01 Sod Chlor 0.9% 1000ml Bag IV 05/19/24 22:51 999 mls/hr .Q1H1M ONE Administration Ondansetron HCl 4 mg 05/19/24 21:48 05/19/24 21:52 Ondansetron 4mg/2ml Vial IV 05/19/24 21:49 4 mg ONCE ONE Administration ORDERS Category Date Time Status POCUS Point of Care (ER Only) Stat Exams 05/19/24 21:53 Ordered CBC w/Auto Diff [Complete Blood Count Auto Diff] Stat Lab 05/19/24 21:47 Completed CMP [Comprehensive Metabolic Panel] Stat Lab 05/19/24 21:47 Completed Lipase Stat Lab 05/19/24 21:47 Completed UA [Urinalysis and Microscopic] Stat Lab 05/19/24 22:51 Completed Urine Culture Routine Micro 05/19/24 22:51 Received VBG [Venous Blood Gas] Stat RT 05/19/24 21:51 Completed Medical Decision Narrative: 34-year-old female about 12 weeks presenting with vomiting. She states that she has hyperemesis gravidarum and has been refractory Bentley Good, currently using Phenergan. States that Phenergan stopped working about 7 hours prior and she is thrown up numerous times. No blood in her vomit, no diarrhea. No fevers or chills, she is having cramping abdominal pain, epigastric abdominal/chest pain. Came in for further evaluation. History was obtained via conversation with patient. On arrival, patient hemodynamically stable, alert, [oriented x4, ][appropriate, ]GCS [15], moving all extremities spontaneously, pupils equal and reactive to light. Full physical exam performed and significant for clinically well-appearing female who is in no acute distress. Does have bag of vomit from waiting room. Abdomen is soft, nontender, nondistended. She is nontachycardic, normotensive, lungs are clear. Speaking in full sentences. Differential includes hyperemesis gravidarum, urinary tract infection, metabolic abnormality, oncologic abnormality, among other. Patient placed on continuous cardiac monitoring and continuous pulse ox with initial blood pressure 119/76, heart rate 90, saturation 98. Bedside [id number] ultrasound was performed. Patient has normal IUP with heart rate 171. Good movements, adequate amniotic fluid. Workup was initiated. Mild leukocytosis 12.2, but nonactionable overall. Chemistry nonactionable, lipase negative and no anion gap. VBG with compensated metabolic acidosis bicarb low at 20.7/CO2 low at 32 and pH 7.43. Patient given Zofran and fluids. Prior to reevaluation, care handed off to oncoming physician. Garment Form Assembler disclaimer Much of this encounter note is an electronic silk spreader spoken language to printed text. Electronic silk spreader of the spoken language may permit errors. Although I have reviewed the note, some errors may still exist. <Edilberto Herndon MD - Last Filed: 05/19/24 23:36> Vital Signs: 05/19/24 21:50 Temperature 98.7 F Temperature Source Oral Pulse Rate [Left] 90 Respiratory Rate 17 Blood Pressure [Right Arm] 119/76 Blood Pressure Mean [Right Arm] 90 Blood Pressure Source [Right Arm] Automatic Cuff Blood Pressure Position [Right Arm] Supine 02 Sat by Pulse Oximetry 98 Oxygen Delivery Method Room Air Lab Data Lab Results 05/19/24 21:47: WBC 12.2 H, RBC 4.26, Hgb 12.6, Hct 36.4 L, MCV 85.4, MCH 29.6, MCHC 34.6, RDW 13.0, Plt Count 296, MPV 11.4 H, Neut % (Auto) 64.7, Lymph % (Auto) 26.2, [place] % (Auto) 7.4, Eos % (Auto) 1.2, Baso % (Auto) 0.3, Neut # (Auto) 7.9 H, Lymph # (Auto) 3.2, [place] # (Auto) 0.9, Eos # (Auto) 0.1, Baso # (Auto) 0.0, Sodium 137, Potassium 3.6, Chloride 102, Carbon Dioxide 24, Anion Gap 14.6, BUN 10, Creatinine 0.60, Estimated Creat Clear 146, Estimated GFR 115, Est GFR ( Amer) 139, Glucose 110 H, Calcium 8.9, Total Bilirubin 0.3, AST 26, ALT 16, Alkaline Phosphatase 73, Total Protein 7.8, Albumin 4.1, Globulin 3.7 H, Albumin/Globulin Ratio 1.1, Lipase 120 05/19/24 21:51: VBG pH 7.43 H, VBG pCO2 32.0 L, VBG pO2 80.3 H, VBG HCO3 20.7 L, VBG Total CO2 21.7 L, VBG O2 Saturation 96.7 H, VBG Base Excess -3.6 L, VBG Lactic Acid 1.4 05/19/24 22:51: Urine Color Yellow, Urine Appearance Clear, Urine pH 8.5, Ur Specific [place] 1.015, Urine Protein Negative, Urine Glucose (UA) Negative, Urine Ketones Negative, Urine Blood Negative, Urine Nitrate Negative, Urine Bilirubin Negative, Urine Urobilinogen 0.2, Ur Leukocyte Esterase Negative, Urine RBC None, Urine WBC 3-5, Ur Squamous Epith Cells Occasional, Urine Bacteria 1+ Orders (Tests/Meds): ED MEDICATIONS Generic Name Dose Route Start Last Admin Trade Name Freq PRN Reason Stop Dose Admin Cephalexin HCl 500 mg 05/19/24 23:32 Cephalexin 500mg Capsule PO 05/19/24 23:33 ONCE ONE Discontinued Medications Generic Name Dose Route Start Last Admin Trade Name Freq PRN Reason Stop Dose Admin Sodium Chloride 1,000 mls @ 999 mls/hr 05/19/24 21:51 05/19/24 22:01 Sod Chlor 0.9% 1000ml Bag IV 05/19/24 22:51 999 mls/hr .Q1H1M ONE Administration Ondansetron HCl 4 mg 05/19/24 21:48 05/19/24 21:52 Ondansetron 4mg/2ml Vial IV 05/19/24 21:49 4 mg ONCE ONE Administration ORDERS Category Date Time Status POCUS Point of Care (ER Only) Stat Exams 05/19/24 21:53 Ordered CBC w/Auto Diff [Complete Blood Count Auto Diff] Stat Lab 05/19/24 21:47 Completed CMP [Comprehensive Metabolic Panel] Stat Lab 05/19/24 21:47 Completed Lipase Stat Lab 05/19/24 21:47 Completed UA [Urinalysis and Microscopic] Stat Lab 05/19/24 22:51 Completed Urine Culture Routine Micro 05/19/24 22:51 Received VBG [Venous Blood Gas] Stat RT 05/19/24 21:51 Completed Medical Decision Narrative: 34-year-old female about 12 weeks presenting with vomiting. She states that she has hyperemesis gravidarum and has been refractory Zofran, Reglan, currently using Phenergan. States that Phenergan stopped working about 7 hours prior and she is thrown up numerous times. No blood in her vomit, no diarrhea. No fevers or chills, she is having cramping abdominal pain, epigastric abdominal/chest pain. Came in for further evaluation. History was obtained via conversation with patient. On arrival, patient hemodynamically stable, alert, [oriented x4, ][appropriate, ]GCS [15], moving all extremities spontaneously, pupils equal and reactive to light. Full physical exam performed and significant for clinically well-appearing female who is in no acute distress. Does have bag of vomit from waiting room. Abdomen is soft, nontender, nondistended. She is nontachycardic, normotensive, lungs are clear. Speaking in full sentences. Differential includes hyperemesis gravidarum, urinary tract infection, metabolic abnormality, oncologic abnormality, among other. Patient placed on continuous cardiac monitoring and continuous pulse ox with initial blood pressure 119/76, heart rate 90, saturation 98. Bedside [id number] ultrasound was performed. Patient has normal IUP with heart rate 171. Good movements, adequate amniotic fluid. Workup was initiated. Mild leukocytosis 12.2, but nonactionable overall. Chemistry nonactionable, lipase negative and no anion gap. VBG with compensated metabolic acidosis bicarb low at 20.7/CO2 low at 32 and pH 7.43. Patient given Zofran and fluids. Prior to reevaluation, care handed off to oncoming physician. Garment Form Assembler disclaimer Much of this encounter note is an electronic silk spreader spoken language to printed text. Electronic silk spreader of the spoken language may permit errors. Although I have reviewed the note, some errors may still exist. Katrina CRAWLEY: I assumed care of the patient at the time of handoff from the prior provider. On reassessment patient alfredo hemodynamically stable, no longer vomiting. Urinalysis shows 1+ bacteria and 3-5 WBCs. No blood. Negative nitrates. Patient reports that she does feel like she has had some dysuria over the last day or so, so we will treat as UTI with cephalexin. Patient given a dose of cephalexin and discharged with prescription for same. Return precautions given. Procedures <Nehemiah Begum MD - Last Filed: 05/19/24 22:58> Limited Ultrasound Indication:: Limited OB ultrasound Indication: , vomiting, abdominal cramping Identified structures: -Uterus -Left adnexa -Right adnexa -Pouch of Juan J Findings: Uterus: Definitive IUP with FHR 171 Right adnexa: -Normal Left adnexa: -Normal [place]: -free fluid absent Impression: -IUP: Present with fhr 171 -Ectopic : Absent -Free fluid: Absent Images were saved to permanent archive The study was technically adequate [facility] Transabdominal: [id number] This study was performed by me, and I personally interpreted all images/videos. Based on my clinical judgement, these images were adequate and did not necessitate further imaging Critical Care <Nehemiah Begum MD - Last Filed: 05/19/24 22:58> Critical Care Time Critical Care Time: No
[2024-05-19 22:58] LABS: Microscopic, Urine URINE MICROSCOPIC (MICROSCOPIC)
[2024-05-19 23:00] VITALS: BP 120/77; PULSE 80; RESP 19; O2SAT 99
[2024-05-19 23:00] LABS: Appearance,Urine CLEAR (Clear); Bilirubin,Urine Negative (Negative); Blood, Urine Negative (Negative); Color,Urine YELLOW (Yellow); Glucose,Urine (UA) Negative (Negative); Ketones,Urine Negative (Negative); Leukocyte Esterase,Urine Negative (Negative); Nitrate,Urine Negative (Negative); PH,Urine 8.5 (5.0-8.5); Protein,Urine Negative (Negative); Specific Gravity, Urine 1.015 (1.005-1.030); Urobilinogen,Urine 0.2 EU/dl (0.2)
[2024-05-19 23:14] LABS: Bacteria,Urine 1+ /lpf; Squamous Epithelial Cell,Urine Occasional #/hpf (0-5)
[2024-05-19 23:30] VITALS: BP 120/79; PULSE 87; RESP 13; O2SAT 92
[2024-05-19] MEDS: cephALEXin 500MG CAPSULE 500 MG PO (23:38)
[2024-05-19 23:39] VITALS: BP 120/79; PULSE 83; RESP 15; TEMP 36.9; O2SAT 98
--- NOTE | 2024-05-22 07:53 | PC.NURSE ---
I spoke with about finalized urine cultures results. No changes needed to treatment plan.
== END 2024-05-19 23:42 | disposition home or self-care (01) ==
PROVIDERS: Emergency Medicine; Emergency Provider Emergency Medicine; PCP Nurse Practitioner Family
DX: O21.0 Mild hyperemesis gravidarum (principal); R10.2 Pelvic and perineal pain; O23.41 Unspecified infection of urinary tract in pregnancy, first trimester; R30.0 Dysuria; Z3A.12 12 weeks gestation of pregnancy
CPT/HCPCS: 80053; 81001; 82803; 83690; 85025; 87086; 96361; 96374; 99284; J2405; J7030

== ENCOUNTER 2024-06-21 15:11 | Outpatient (CLI) | payer OTHER, SELFPAY ==
[2024-06-21 20:13] LABS: Coronavirus 19, PCR Not Detected (NotDetected); Influenza A, PCR Not Detected (NotDetected); Influenza B, PCR Not Detected (NotDetected)
== END 2024-06-21 23:59 ==
LOC: LAB.DROPOF 06-24 15:12
PROVIDERS: PCP Nurse Practitioner Family; Visit Provider Student in an Organized Health Care Education/Training Program
DX: R52 Pain, unspecified (principal)
CPT/HCPCS: 87636

== ENCOUNTER 2024-07-01 16:08 | Emergency (ER) | payer OTHER, SELFPAY ==
[2024-07-01 16:24] VITALS: BP 110/61; PULSE 86; RESP 18; TEMP 36.8; O2SAT 99; BMI 27.1
[2024-07-01 16:27] LABS: Microscopic, Urine URINE MICROSCOPIC (MICROSCOPIC)
[2024-07-01 16:29] LABS: Appearance,Urine CLEAR (Clear); Bilirubin,Urine Negative (Negative); Blood, Urine Negative (Negative); Color,Urine YELLOW (Yellow); Glucose,Urine (UA) Negative (Negative); Ketones,Urine Negative (Negative); Leukocyte Esterase,Urine 2+ (Negative); Nitrate,Urine Negative (Negative); PH,Urine 8.5 (5.0-8.5); Protein,Urine Negative (Negative); Specific Gravity, Urine 1.015 (1.005-1.030); Urobilinogen,Urine 0.2 EU/dl (0.2)
[2024-07-01 16:30] VITALS: BP 118/72; PULSE 85; O2SAT 99
--- NOTE | 2024-07-01 16:37 | ED_ITS ---
<Statement entered by Rama Keller DO - 07/01/24 20:52> I was consulted by the ANUSHA, and we discussed the complexity of the problems being addressed. I approved the treatment and management plan for this patient's care in the emergency department, thus performing a substantive portion of the medical decision making. Rama Keller DO Discharge Plan Disposition Patient Disposition: Home, Self-Care Condition: Good Prescriptions Prescriptions: New cephalexin 500 mg capsule 500 mg PO Q12H 7 Days Qty: 14 0RF No Action amoxicillin 400 mg/5 mL suspension for reconstitution 844 mg PO BID 10 Days Qty: 211 0RF Referrals Follow up/Referrals: Norma Friedman APRN [Primary Care Provider] - See instructions Josefina Justice DO [Staff Physician] - See instructions Activity Restrictions/Add. Instructions Additional Instructions/Restrictions: Please see your OB this week for vaginal discharge. Return to the ER if you have worsening pain, increased discharge or vaginal bleeding. Clinical Impressions Clinical Impression: UTI (urinary tract infection), Vaginal discharge Instructions Patient Instructions: DI for Urinary Tract Infection (UTI) Print Language Print Language: Liberian Discharge ED Provider: Rama Keller General Adult HPI <SONA Farr - Last Filed: 07/01/24 18:40> General Chief complaint: Urogenital-Female Stated complaint: 18 wks antepartum, pelvic pain, pressure Time Seen by Provider: 07/01/24 16:11 Mode of Arrival: Ambulatory Source of Information: Patient Description of Symptoms (Recalled from ER Triage Doc. by RN): pt is worried her mucus plug partially fell out and is having pelvic pressure,back cramping since last night History of Present Illness HPI narrative: Patient presents complaining of pelvic cramping, pressure and low back pain. She is 18 weeks gestation, G9, P5. She reports that she passed a solid piece of thick, yellow/green discharge with a streak of blood. Since that time she has had some watery discharge. She denies any dysuria or frequency. She reports that she did recently use Monistat after completing Keflex and amoxicillin. complaint: vaginal discharge Onset (ago): day(s) (2) Location: genitals Radiation: non-radiation Severity: mild Consistency: intermittent Relieving factors: none Exacerbating factors: none Associated symptoms: negative fever/chills or nausea/vomiting Related Data Previous Rx's ?Medication ?Instructions ?Recorded amoxicillin 400 mg/5 mL oral 844 mg (10.55 mL) PO BID 10 days 06/21/24 suspension #211 mL cephalexin 500 mg capsule 500 mg PO Q12H 7 days #14 caps 07/01/24 Allergies Allergy/AdvReac Type Severity Reaction Status Date / Time No Known Allergies Allergy Verified 06/21/24 18:15 [facility], [facility] <SONA Farr - Last Filed: 07/01/24 18:40> [facility], [facility] Disclaimer: The information contained in this section may have been updated after the patient was seen, as this information can be updated by other users. Medical History Missed GERD (gastroesophageal reflux disease) Grand multipara History of recurrent miscarriages History of miscarriage, currently History of anemia Urinary tract infection History of gastroesophageal reflux (GERD) Endometriosis Clinically diagnosed Dysmenorrhea Menorrhagia History of miscarriage History of fainting History of heavy periods Surgical History History of tympanostomy tube placement History of section Hx of section Family History Other Family history of diabetes mellitus type II Family history of myocardial infarction Social History Smoking Status: Never smoker alcohol intake: never substance use type: denies use current occupational status: unemployed Travel in the last 8 weeks?: Inside the [place] household members: spouse housing: house 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 Have you lived/traveled outside [place] in past 30 days?: No Contact w/someone who lives/traveled outside [place] past 30 days?: No Exposure to someone with infectious disease in past 14 days?: No Do you have a fever (greater than 100.4 F or 38 C)?: No Have you tested positive for COVID-19?: No Exposed to someone with COVID-19 in past 14 days?: No Do you have a sore throat?: No Do you have a cough?: No Do you have any weakness?: No Do you have any diarrhea?: No Are you experiencing any unusual bleeding?: No Do you have any muscle aches/pain?: No Do you have any abdominal pain?: No Are you experiencing loss of taste or smell?: No Other Medical History Have you received the Flu Vaccine for this season: No Have you received the Pneumonia Vaccine: No <SONA Farr - Last Filed: 07/01/24 18:40> ROS Obtained: Yes Systems reviewed as appropriate & no additional complaints except as documented Physical Exam <SONA Farr - Last Filed: 07/01/24 18:40> General General appearance: alert and in no apparent distress Head Head exam: atraumatic and normocephalic Eye Eye exam: Present normal appearance and EOMI Chest Chest inspection: Present symmetric chest wall rise Respiratory Respiratory exam: Present normal lung sounds bilaterally; Absent wheezes or stridor Cardiovascular Cardiovascular exam: Present regular rate and normal rhythm; Absent systolic murmur Abdominal Exam Abdominal exam: Present soft; Absent distention, tenderness or guarding Speculum exam: Present vaginal discharge and other (cervix appears closed) Extremities Exam Extremities exam: Present full ROM Neurological Exam Neurological exam: Present alert and oriented X3 Psychiatric Psychiatric exam: Present normal affect and normal mood Skin Skin exam: Present warm, dry and intact Medical Decision Making <SONA Farr Last Filed: 07/01/24 18:40> Medical Records Screening: Per USPSTF and CDC recommendations, given the prevalence of disease in our region, it is our hospital?s policy to screen for HIV and viral Hepatitis for all patients aged 18 and over and those with ongoing risk factors. Maxime Inquiry Pt receiving controlled substance: No Vital Signs: 07/01/24 16:24 07/01/24 16:30 07/01/24 17:00 Temperature 98.3 F Temperature Source Oral Pulse Rate 85 84 Pulse Rate [Right] 86 Respiratory Rate 18 Blood Pressure 118/72 103/58 L Blood Pressure [Right Arm] 110/61 Blood Pressure Mean [Right Arm] 77 02 Sat by Pulse Oximetry 99 99 99 Oxygen Delivery Method Room Air 07/01/24 17:30 07/01/24 18:00 Temperature Temperature Source Pulse Rate 84 76 Pulse Rate [Right] Respiratory Rate Blood Pressure 95/59 L 103/58 L Blood Pressure [Right Arm] Blood Pressure Mean [Right Arm] 02 Sat by Pulse Oximetry 99 100 Oxygen Delivery Method Room Air Lab Data Lab Results 07/01/24 16:15: Urine Color Yellow, Urine Appearance Clear, Urine pH 8.5, Ur Specific [place] 1.015, Urine Protein Negative, Urine Glucose (UA) Negative, Urine Ketones Negative, Urine Blood Negative, Urine Nitrate Negative, Urine Bilirubin Negative, Urine Urobilinogen 0.2, Ur Leukocyte Esterase 2+ A, Urine RBC 3-5, Urine WBC 3-5, Ur Squamous Epith Cells 10-20, Amorphous Sediment 3+, Urine Bacteria 2+ 07/01/24 16:20: Membrane Rupture Negative Orders (Tests/Meds): ED MEDICATIONS Discontinued Medications Generic Name Dose Route Start Last Admin Trade Name Freq PRN Reason Stop Dose Admin Lactated Ringer's 1,000 mls @ 999 mls/hr 07/01/24 17:19 07/01/24 18:28 Lactated Ringer's 1000 Ml Bag IV 07/01/24 18:19 Not Given .Q1H1M ONE ORDERS Category Date Time Status POCUS Point of Care (ER Only) Stat Exams 07/01/24 17:03 Ordered Amnisure Test [ Membrane Rupture (Rapid)] Stat Lab 07/01/24 16:20 Completed CBC w/Auto Diff [Complete Blood Count Auto Diff] Stat Lab 07/01/24 16:34 Ordered CMP [Comprehensive Metabolic Panel] Stat Lab 07/01/24 16:34 Ordered UA [Urinalysis and Microscopic] Stat Lab 07/01/24 16:15 Completed Urine Chlam/Gono/Trich, JAY Stat Lab 07/01/24 16:15 Received Vaginitis Plus/HSV Stat Lab 07/01/24 18:26 Ordered Urine Culture Stat Micro 07/01/24 16:15 Received Medical Decision Narrative: In summary patient is a 34-year-old female who presents the emergency department for evaluation of vaginal discharge and . Patient is hemodynamically stable upon arrival, afebrile. Unremarkable physical exam. Differential diagnosis includes miscarriage, vaginitis, UTI. Initial workup will be conducted with labs, bedside ultrasound. Patient declines any labs. Bedside ultrasound reveals positive cardiac activity, HR 145, and movement. Cervix appears closed on vaginal exam. I did discuss with Dr. Marin who recommended discharge home with rest and follow-up with their office this week. Given this patient is appropriate for discharge home with strict return precautions. Advised to return to the ER for any increased pain, discharge or bleeding. Keflex started for leukocyte esterase positive urine. <Rama N Krishna, DO - Last Filed: 07/01/24 17:42> Vital Signs: 07/01/24 16:24 07/01/24 16:30 07/01/24 17:00 Temperature 98.3 F Temperature Source Oral Pulse Rate 85 84 Pulse Rate [Right] 86 Respiratory Rate 18 Blood Pressure 118/72 103/58 L Blood Pressure [Right Arm] 110/61 Blood Pressure Mean [Right Arm] 77 02 Sat by Pulse Oximetry 99 99 99 Oxygen Delivery Method Room Air 07/01/24 17:30 07/01/24 18:00 Temperature Temperature Source Pulse Rate 84 76 Pulse Rate [Right] Respiratory Rate Blood Pressure 95/59 L 103/58 L Blood Pressure [Right Arm] Blood Pressure Mean [Right Arm] 02 Sat by Pulse Oximetry 99 100 Oxygen Delivery Method Room Air Lab Data Lab Results 07/01/24 16:15: Urine Color Yellow, Urine Appearance Clear, Urine pH 8.5, Ur Specific [place]ill 1.015, Urine Protein Negative, Urine Glucose (UA) Negative, Urine Ketones Negative, Urine Blood Negative, Urine Nitrate Negative, Urine Bilirubin Negative, Urine Urobilinogen 0.2, Ur Leukocyte Esterase 2+ A, Urine RBC 3-5, Urine WBC 3-5, Ur Squamous Epith Cells 10-20, Amorphous Sediment 3+, Urine Bacteria 2+ 07/01/24 16:20: Membrane Rupture Negative Orders (Tests/Meds): ED MEDICATIONS Discontinued Medications Generic Name Dose Route Start Last Admin Trade Name Freq PRN Reason Stop Dose Admin Lactated Ringer's 1,000 mls @ 999 mls/hr 07/01/24 17:19 07/01/24 18:28 Lactated Ringer's 1000 Ml Bag IV 07/01/24 18:19 Not Given .Q1H1M ONE ORDERS Category Date Time Status POCUS Point of Care (ER Only) Stat Exams 07/01/24 17:03 Ordered Amnisure Test [ Membrane Rupture (Rapid)] Stat Lab 07/01/24 16:20 Completed CBC w/Auto Diff [Complete Blood Count Auto Diff] Stat Lab 07/01/24 16:34 Ordered CMP [Comprehensive Metabolic Panel] Stat Lab 07/01/24 16:34 Ordered UA [Urinalysis and Microscopic] Stat Lab 07/01/24 16:15 Completed Urine Chlam/Gono/Trich, JAY Stat Lab 07/01/24 16:15 Received Vaginitis Plus/HSV Stat Lab 07/01/24 18:26 Ordered Urine Culture Stat Micro 07/01/24 16:15 Received Procedures <Rama Keller DO - Last Filed: 07/01/24 17:42> Limited Ultrasound Findings:: Limited OB ultrasound Indication: Pelvic pain in the setting of Identified structures: [-Uterus -Left adnexa -Right adnexa -Pouch of Juan J] Findings: Uterus: Definitive IUP FHR: 148 Right adnexa: Normal Left adnexa: Normal Cul de sac: Free fluid abs Impression: -IUP: Present - heart rate: 148 -Ectopic : Absent -Free fluid: Absent Images were saved to permanent archive The study was technically adequate CPT Transabdominal: 16692-32 This study was performed by me, and I personally interpreted all images/videos. Based on my clinical judgement, these images were adequate and did not necessitate further imaging. Critical Care <SONA Farr - Last Filed: 07/01/24 18:40> Critical Care Time Critical Care Time: No
[2024-07-01 16:44] LABS: Bacteria,Urine 2+ /lpf
[2024-07-01 16:45] LABS: Amorphous Sediment,Urine 3+ /lpf
[2024-07-01 16:49] LABS: Fetal Membrane Rupture (Rapid) Negative (Negative)
[2024-07-01 17:00] VITALS: BP 103/58; PULSE 84; O2SAT 99
[2024-07-01 17:30] VITALS: BP 95/59; PULSE 84; O2SAT 99
[2024-07-01 18:00] VITALS: BP 103/58; PULSE 76; O2SAT 100
[2024-07-01 18:45] VITALS: BP 124/68; PULSE 71; RESP 14; TEMP 36.6; O2SAT 98
[2024-07-01 19:52] LABS: Chlamydia trachomatis Negative (Negative); Neisseria gonorrhoeae Negative (Negative); Trichomonas vaginalis Negative (Negative)
== END 2024-07-01 18:47 | disposition home or self-care (01) ==
PROVIDERS: Physician Assistant; Emergency Provider Emergency Medicine; PCP Nurse Practitioner Family
DX: O26.892 Other specified pregnancy related conditions, second trimester (principal); R10.2 Pelvic and perineal pain; O23.42 Unspecified infection of urinary tract in pregnancy, second trimester; N89.8 Other specified noninflammatory disorders of vagina; Z3A.18 18 weeks gestation of pregnancy
CPT/HCPCS: 81001; 84112; 87086; 87220; 87491; 87529; 87591; 87661; 87798; 87801; 99284

== ENCOUNTER 2024-07-09 12:00 | Outpatient (CLI) | payer OTHER, SELFPAY ==
[2024-07-09 12:05] LABS: Microscopic, Urine URINE MICROSCOPIC (MICROSCOPIC)
[2024-07-09 12:38] LABS: Appearance,Urine CLOUDY (Clear); Bilirubin,Urine Negative (Negative); Blood, Urine Negative (Negative); Color,Urine YELLOW (Yellow); Glucose,Urine (UA) Negative (Negative); Ketones,Urine Negative (Negative); Leukocyte Esterase,Urine 1+ (Negative); Nitrate,Urine Negative (Negative); PH,Urine 8.5 (5.0-8.5); Protein,Urine TRACE (Negative); Urobilinogen,Urine 0.2 EU/dl (0.2)
[2024-07-09 12:44] LABS: Creatinine,Urine Random 138 mg/dL (Not Estab.)
[2024-07-09 12:48] LABS: Basophils % 0.2 % (0.1-2.0); Eosinophils # 0.2 Kmm3 (0.0-0.4); Eosinophils % 1.8 % (0.1-12.0); Hematocrit 35.7 % (37.0-47.0); Hemoglobin 11.6 g/dL (12.2-16.2); Immature Granulocytes # 0.03 10^3uL; Immature Granulocytes % 0.3 %; Lymphocytes # 2.2 K/mm3 (0.7-4.5); Lymphocytes % 22.5 % (10-50); Mean Corpuscular HGB Conc 32.5 g/dL (31.8-35.4); Mean Corpuscular Hemoglobin 29.1 pg (27.0-31.2); Mean Corpuscular Volume 89.7 fl (81-99); Mean Platelet Volume 11.5 fl (7.4-10.4); Monocytes # 0.8 K/mm3 (0.1-1.0); Neutrophils # 6.4 K/mm3 (1.8-7.8); Neutrophils % 67.2 % (37.0-80.0); Nucleated Red Blood Cells # 0 10^3/uL; Nucleated Red Blood Cells % 0 %; Platelet Count 268 K/mm3 (142-424); Red Blood Count 3.98 M/mm3 (4.20-5.40); Red Cell Distribution Width 13.9 % (11.5-17.5); Red Cell Distribution Width-SD 45.2 fL; White Blood Count 9.6 K/mm3 (4.8-10.8)
[2024-07-09 13:03] LABS: Bacteria,Urine 3+ /lpf
[2024-07-09 13:11] LABS: Albumin Level 3.5 g/dl (3.5-5.0); Anion Gap 10.9 mEq/L (5-15); Blood Urea Nitrogen 5 mg/dl (7-17); Calcium 8.7 mg/dl (8.4-10.2); Carbon Dioxide 24 mmol/L (22.0-30.0); Chloride 106 mmol/L (98-107); Estimated Glomerular Filt Rate 142 ml/min (>60); GFR (African American) 172 ML/MIN (>60); Glucose 78 mg/dl (74-100); Potassium 3.9 mmoL/L (3.5-5.1); Sodium 137 mmol/L (136-145)
== END 2024-07-09 23:59 | disposition home or self-care (01) ==
LOC: LAB 12:01
PROVIDERS: PCP Nurse Practitioner Family; Visit Provider Student in an Organized Health Care Education/Training Program
DX: N28.9 Disorder of kidney and ureter, unspecified (principal)
CPT/HCPCS: 36415; 80069; 81001; 82570; 84156; 85025; 87086

== ENCOUNTER 2024-09-02 06:42 | Observation (INO) | payer OTHER, SELFPAY ==
--- OUTSIDE RECORDS SUMMARY | 2024-07-02 22:15 | XMS_ITS | Encounter Summary ---
[facility] Organization [facility] Address [address] [place] [address] Care Team Providers Care Sex Worker Or Escort Name Role Phone Ivyashlyn Norma FERNÁNDEZ Primary Care Provider + [phone] Reason for Visit * Reason Comments Vaginal Bleeding * Auth/Cert (Routine) Specialty Diagnoses / Procedures Referred By Tarik t Referred To Contact Referral ID Status Reason Start Date Expiration Date Visits Re quested Visits Authorized [id number] 1 1 Encounter Details Date Type Department Care Team (Late st Contact Info) Description 07/02/2024 10:15 PM EDT - 07/02/2024 11:59 PM EDT Hospital Encounter [facility] [address] [place] [id number] Staci Jain MD [address] [facility] [address] [place] [address] Nan Goss MD [address] [facility] [address] [place] [address] Discharge Disposition: Home or Self Care Social History Tobacco Use Types Packs/Day Years Used Date Smoking Tobacco: Never Smokeless Tobacco: Never Alcohol Use Standard Drinks/Week Comments Never 0 (1 standard drink = 0.6 oz pur e alcohol) [facility] Utilities Answer Date Recorded In the past 12 months has [employer] electric, gas, oil, or water company threatened to shut off services in your home? No 05/28/2024 AUDIT-C Answer Date Recorded Q1: How often do you have a drink containing alcohol? Never 05/28/2024 Q2: How many drinks containi ng alcohol do you have on a typical day when you are drinking? Patient does not drink Q3: How often do you have si x or more drinks on one occasion? Never 05/28/2024 Overall Financial Resource Strain (CARDIA) Answe r Date Recorded How hard is it for you to pa y for the very basics like food, housing, medical care, and heating? Not hard at all 05/28/2024 [facility] [place] [facility] Occupat ional Health - Occupational Stress Questionnaire Answer Date Recorded Do you feel stress - tense, restless, nervous, or anxious, or unable to sleep at night because your mind is troubled all the time - these days? To some extent 05/27/2024 Exercise Vital Sign Answer Date Recorde d On average, how many days pe r week do you engage in moderate to strenuous exercise (like a brisk walk)? 5 days 05/28/2024 On average, how many minutes do you engage in exercise at this level? 40 min 05/28/2024 Hunger Vital Sign Answer Date Recorded Within the past 12 months, y ou worried that your food would run out before you got the money to buy more. Never true 05/29/19 25 Within the past 12 months, t he food you bought just didn't last and you didn't have money to get more. Never true 05/28/2024 PRAPARE - Transportation Answer Date Re corded In the past 12 months, has l ack of transportation kept you from medical appointments or from getting medications? No 05/08 In the past 12 months, has l ack of transportation kept you from meetings, work, or from getting things needed for daily living? No 05/28/2024 Abuse Screen Answer Date Recorded Feels Unsafe at Home or Work/School no 05/28/2024 Feels Threatened by Someone no 05/08 Does Anyone Try to Keep You From Having Contact with Others or Doing Things Outside Your Home? no 05/28/2024 Physical Sign of Abuse Present Not on file 0 05/28/2024 Housing Stability Answer Date Recorded Current Living Arrangements home 05/08 Potentially Unsafe Housing Conditions none 05/28/2024 Family and Community Support Answer Travis e Recorded If for any reason you need h elp with day-to-day activities such as bathing, preparing meals, shopping, managing finances, etc., do you get the help you need? I don't need any help 05/28/2024 How often do you feel lonely or isolated from those around you? Sometimes 05/28/2024 Employment Answer Date Recorded Do you want help finding or keeping work or a job? I do not need or want help 05/28/2024 Disabilities Answer Date Recorded Difficulty Concentrating, Remembering or Making Decisions no 05/28/2024 Difficulty Managing Errands Independently no 05/28/2024 Education Answer Date Recorded Do you want help with school or training? For example, starting or completing job training or getting a high school diploma, GED or equivalent No 05/28/2024 Preferred Language Georgian 05/28/2024 PHQ-2 Answer Date Recorded Patient Health Questionnaire-9 Score 2 05/28/2024 Estimated Date of Delivery Comme nts Yes 12/01/2024 Based on last me nstrual period of 02/25/2024 Sex and Gender Information Value Date Recorded Sex Assigned at Female 07/04/2024 10:40 AM EDT Legal Sex Female 10:26 AM EDT Gender Identity Not on file Sexual Orientation Not on file documented as of this encounter Last Filed Vital Signs Vital Sign Reading Time Taken Comments Blood Pressure 104/70 07/02/2024 10:30 PM EDT Pulse 83 07/02/2024 10:30 PM EDT Temperature 36.9 C (98.4 F) 07/02/2024 10:30 PM EDT Respiratory Rate 16 07/02/2024 10:30 PM EDT Oxygen Saturation 98% 07/02/2024 10:30 PM EDT Inhaled Oxygen Concentration - - Weight - - Height - - Body Mass Index - - documented in this encounter Functional Status * Question Answer Date of Assessment Author 1. Wish to be (Past 1 Month) No 07/02/2024 10:33 PM EDT Hector Pfeiffer RN 2. Non-Specific Active Suicidal Thoughts (Past 1 Month) No 07/02/2024 10:33 PM EDT Hector Pfeiffer RN * Calculated C-SSRS Risk Score (Lifetime/Recent) Answer Date of Assessment Author No Risk Indicated 07/02/2024 10:33 PM EDT Yanna Odell RN * [place] Suicide Severity Rating Scale (Screener/Recent Self-Report) Question Answer Date of Assessment Author 6. Suicidal Behavior (Lifetime) No 07/02/2024 10:33 PM EDT Hector Pfeiffer RN documented as of this encounter Discharge Instructions * Appointments* Yanna Pfeiffer RN - 07/02/2024 11:31 PM EDT Keep scheduled appointments, follow up as needed. * Attachments The following attachments cannot be sent through Care Everywhere. * Cervical Insufficiency (Georgian) * Second Trimester of (Georgian) * Vaginal Bleeding During Second Trimester [id number] (Georgian) documented in this encounter Medications at Time of Discharge famotidine (PEPCID) 20 MG tablet Take 1 tablet by mouth 2 (Two) Times a Day. Vit-Fe Fumarate-FA ( VITAMIN PO) promethazine (PHENERGAN) 12.5 MG suppositoryIndi cations:Nausea and vomiting during Insert 1 suppository into the rectum Every 6 (Six) Hours As Needed for Nausea or Vomiting. 60 suppository 05/27/2024 documented as of this encounter H&P Notes * Nan Goss MD - 07/02/2024 11:30 PM EDT Images from the original note were not included. [facility] Obstetric History and Physical Referring Provider: Staci Jain* Chief Complaint Patient presents with Vaginal Bleeding Subjective Patient is a 34 y.o. female currently at 18w2d, who presents with cramping and loss of mucus plug over the last couple of days. She states she presented to an outside ED yesterday but that she was told there is nothing they could do if she was in labor and was not evaluated. She states the cramping is on and off and is different than her previous pregnancies. She also reports a history of a cone procedure prior to her last term as well as a D&C in December of 2023 for an SAB. She states her last her cervix was borderline short. She denies any vaginal bleeding or loss of fluid. She reports good FM. She has on other concerns at this time. Her previous obstetric/gynecological history is remarkable for cone procedure, colposcopy with biopsy, 2 D&C, 3 SABs, 1 c-s, 1 , and 3 VBACs. Information: External Results Outside Results - Transcribed From Office Records - See Scanned Records For Details Test Value Date Time ABO ^ O 04/12/24 Rh ^ Positive 04/12/24 Antibody Screen ^ Normal 04/12/24 Varicella IgG ^ immune 04/12/24 Rubella ^ immune 04/12/24 Hgb 12.4 g/dL 06/25/24 1634 11.6 g/dL 05/27/24 1401 12.3 g/dL 05/21/24 1111 ^ 12.8 g/dL 04/12/24 Hct 38.6 % 06/25/24 1634 35.8 % 05/27/24 1401 38.3 % 05/21/24 1111 ^ 39 % 04/12/24 HgB A1c 4.7 % 06/25/24 1634 1h GTT 3h GTT Fasting 3h GTT 1 hour 3h GTT 2 hour 3h GTT 3 hour Gonorrhea (discrete) ^ Negative 04/12/24 Chlamydia (discrete) ^ Negative 04/12/24 RPR Syphils cascade: TP-Ab (FTA) TP-Ab TP-Ab (EIA) TPPA HBsAg Herpes Simplex Virus PCR Herpes Simplex VIrus Culture HIV ^ non-reactive 04/12/24 Hep C RNA Quant PCR Hep C Antibody ^ negative 04/12/24 AFP NIPT Cystic Fibrosis (Carmen) Cystic Fibroisis Spinal Muscular atrophy Fragile X Group B Strep GBS Susceptibility to Clindamycin GBS Susceptibility to Erythromycin Fibronectin Genetic Testing, Maternal Blood Drug Screening Test Value Date Time Urine Drug Screen Amphetamine Screen Barbiturate Screen Benzodiazepine Screen Methadone Screen Phencyclidine Screen Opiates Screen THC Screen Cocaine Screen Propoxyphene Screen Buprenorphine Screen Methamphetamine Screen Oxycodone Screen Tricyclic Antidepressants Screen Legend ^: Historical Past OB History: OB History Para Term AB Living 9 5 4 1 3 5 SAB IAB Ectopic Molar Multiple Live Births 3 0 0 0 0 5 # Outcome Date GA Lbr Morgan/2nd Weight Sex Type Anes PTL Lv 9 Current 8 SAB 01/05/24 SAB Comments: Blighted Ovum 7 Term 09/05/22 M Vag-Spont JAGDISH 6 SAB 2020 Comments: Implanted on C/S scar 5 Term 08/21/19 M JAGDISH 4 SAB 07/20/18 3 Term 04/21/16 F JAGDISH 2 06/19/14 M CS-Unspec JAGDISH Comments: bradycardia, stat c/s Complications: Other 1 Term 08/11/10 F Vag-Spont JAGDISH Obstetric Comments Preg 1-9 = FOB #1 Past Medical History: Past Medical History: Diagnosis Date Abnormal Pap smear of cervix 2017 Anxiety Hemorrhage after first 24 hours following delivery of placenta 2017 14 days PP with retained products Recurrent loss, antepartum condition or complication Past Surgical History Past Surgical History: Procedure Laterality Date CERVICAL BIOPSY W/ LOOP ELECTRODE EXCISION 2017 SECTION 2015 COLPOSCOPY 2017 DILATATION AND CURETTAGE 2017 PPH with retained products 14 days PP EAR TUBES WISDOM TOOTH EXTRACTION Family History: History reviewed. No pertinent family history. Social History: reports that she has never smoked. She has never used smokeless tobacco. reports no history of alcohol use. reports no history of drug use. General ROS Negative Findings: ROS All other systems have been reviewed and are neg Objective Vital Signs Range for the last 24 hours Temperature: Temp: [98.4 ??F (36.9 ??C)] 98.4 ??F (36.9 ??C) Temp Source: Temp src: Oral BP: BP: (104)/(70) 104/70 Pulse: Heart Rate: [83] 83 Respirations: Resp: [16] 16 SPO2: SpO2: [98 %] 98 % O2 Amount (l/min): O2 Devices Weight: Physical Examination: General: alert, appears stated age, and cooperative Skin: normal HEENT: Lungs: Normal respiratory rate and effort Heart: Acyanotic Gastrointestinal: Soft, non-tender, gravid Lower Extremities: : Normal-appearing external genitalia, cervix appears closed, friable with ectropion present, no abnormal-appearing discharge Musculoskeletal: Neuro: Presentation: vtx Cervix: Exam by: Method: sterile vaginal exam performed Dilation: closed Effacement: thick Station: high Heart Rate Assessment Method: HR Assessment Method: external Beats/min: HR (beats/min): 135 Baseline: Varibility: Accels: Decels: Tracing Category: Uterine Assessment Method: Method: external tocotransducer Frequency (min): Ctx Count in 10 min: Duration: Intensity: Contraction Intensity: no contractions Intensity by IUPC: Resting Tone: Uterine Resting Tone: soft by palpation Resting Tone by IUPC: [place] Units: Bedside Transvaginal Ultrasound CL between 2.66 and 2.89 cm Laboratory Results: Lab Results (last 24 hours) Procedure Component Value Units Date/Time Urinalysis, Microscopic Only - Urine, Clean Catch [[id number]] (Abnormal) Collected: 07/02/242308 Specimen: Urine, Clean Catch Updated: 07/02/24 233 RBC, UA 0-2 /HPF WBC, UA 0-2 /HPF Bacteria, UA 2+ /HPF Squamous Epithelial Cells, UA 0-2 /HPF Hyaline Casts, UA Unable to determine due to loaded field /LPF Amorphous Crystals, UA Moderate/2+ /HPF Methodology Manual Light Microscopy Urinalysis With Microscopic If Indicated (No Culture) - Urine, Clean Catch [[id number]] (Abnormal) Collected: 07/02/242308 Specimen: Urine, Clean Catch Updated: 07/02/242327 Color, UA Yellow Appearance, UA Turbid pH, UA >=9.0 Specific [place], UA 1.016 Glucose, UA Negative Ketones, UA Negative Bilirubin, UA Negative Blood, UA Negative Protein, UA Trace Leuk Esterase, UA Negative Nitrite, UA Negative Urobilinogen, UA 1.0 E.U./dL Radiology Review: Imaging Results (Last 24 Hours) No results found for the last 24 hours. Other Studies: Assessment & Plan Vaginal discharge Abdominal cramping Assessment: 1. Intrauterine at 18w2d gestation with reassuring status. 2. History of cervical conization 3. Borderline cervical shortening - Reports 3.3 cm about 1 week ago on transvaginal ultrasound, now down to 2.66 cm. Speculum exam and SVE reassuring with closed cervix. No concern for imminent previable labor at this time. Plan: 1. Discussed cervical length is technically still normal but would recommend repeat screening in 1-2 weeks with consideration of vaginal progesterone if <25 mm. Encouraged to keep scheduled appointment on 07/05. Strict return precautions given. 2. Plan of care has been reviewed with patient. 3. Risks, benefits of treatment plan have been discussed. 4. All questions have been answered. Nan Goss MD 07/03/2024 00:05 EDT documented in this encounter Plan of Treatment Upcoming Encounters Date Type Department Care Team (Late st Contact Info) Description 09/09/2024 9:30 AM EDT Routine [facility] [address] [place] [address] Jacey Mathews, LAYUP WORKER [address] [facility] [address] [place] [id number] 09/09/2024 9:30 AM EDT Ancillary Procedure [facility] [address] [place] [address] documented as of this encounter Procedures Procedure Name Priority Date/Time Associated Diagnosis Comments URINALYSIS, MICROSCOPIC ONLY Routine 07/02/2024 11:09 PM EDT URINALYSIS W/ MICROSCOPIC IF INDICATED (NO CULTURE) Routine 07/02/2024 11:09 PM EDT documented in this encounter Results * (ABNORMAL) Urinalysis, Microscopic Only - Urine, Clean Catch (07/02/2024 11:09 PM EDT) RBC, UA 0-2 None Seen, 0-2 /HPF 07/02/2024 11:37 PM EDT [facility] WBC, UA 0-2 None Seen, 0-2 /HPF 07/02/2024 11:37 PM EDT [facility] Bacteria, UA 2+(A) None Seen, Trace /HPF 07/02/2024 11:37 PM EDT [facility] Squamous Epithelial Cells, UA 0-2 None Seen, 0-2 /HPF 07/02/2024 11:37 PM EDT [facility] Hyaline Casts, UA Unable to determine due to loaded field 0 - 6 /LPF 07/02/2024 11:37 PM EDT [facility] Amorphous Crystals, UA Moderate/2+ None Seen /HPF 07/02/2024 11:37 PM EDT [facility] Methodology Manual Light Microscopy 07/02/2024 11:37 PM EDT [facility] Urine Urine specimen obtained by clean catch procedure / Unknown Collection / Unknown 07/02/2024 11:09 PM EDT 07/02/2024 11:17 PM EDT Nan Goss MD URINE ORDERABLES Final Resul t [facility]
[address] [place] [address], * (ABNORMAL) Urinalysis With Microscopic If Indicated (No Culture) - Urine, Clean Catch (07/02/2024 11:09 PM EDT) Color, UA Yellow Yellow, Straw 07/02/2024 11:28 PM EDT [facility] Appearance, UA Turbid(A) Clear 07/02/2024 11:28 PM EDT [facility] pH, UA >=9.0(H) 5.0 - 8.0 07/02/2024 11:28 PM EDT [facility] Specific [place], UA 1.016 1.001 - 1.030 07/02/2024 11:28 PM EDT [facility] Glucose, UA Negative Negative 07/02/2024 11:28 PM EDT [facility] Ketones, UA Negative Negative 07/02/2024 11:28 PM EDT [facility] Bilirubin, UA Negative Negative 07/02/2024 11:28 PM EDT [facility] Blood, UA Negative Negative 07/02/2024 11:28 PM EDT [facility] Protein, UA Trace(A) Negative 07/02/2024 11:28 PM EDT [facility] Leuk Esterase, UA Negative Negative 07/02/2024 11:28 PM EDT [facility] Nitrite, UA Negative Negative 07/02/2024 11:28 PM EDT [facility] Urobilinogen, UA 1.0 E.U./dL 0.2 - 1.0 E.U./dL 07/02/2024 11:28 PM EDT [facility] Urine Urine specimen obtained by clean catch procedure / Unknown Collection / Unknown 07/02/2024 11:09 PM EDT 07/02/2024 11:17 PM EDT Nan Goss MD URINE ORDERABLES Final Resul t [facility]
[address] [place] [address], documented in this encounter Visit Diagnoses Not on filedocumented in this encounter Additional Health Concerns Assessment Noted Time PHQ-2 Depression Total Score: 2 05/28/19 25 4:39 PM EDT documented as of this encounter Care Teams Sex Worker Or Escort Relationship Specialty Start Date End Date Norma Friedman APRN [address] [place] [address] [place] [place] [id number] PCP - General Family Medicine 05/14/24 documented as of this encounter
--- OUTSIDE RECORDS SUMMARY | 2024-07-05 09:30 | XMS_ITS | Encounter Summary ---
Author Organization [facility] Address [address] [place] [id number] Care Team Providers Care Factory Focus Technician Name Role Phone Norma Friedman APRN Primary Care Provider + [phone] Reason for Visit * Diagnostic Imaging (Routine) - Closed Specialty Diagnoses / Procedures Referred By Contact Referred To Contact Obstetrics and Gynecology Diagnoses care in second trimester, unspecified Procedures US Ob 14 + Weeks Single or First Gestation Uriel Roberts MD [address] [address] Phone: tel: fax: [facility] [address] [address] Phone: tel: fax: Referral ID Status Reason Start Date Expiration Date Visits Re quested Visits Authorized [id number] Closed 06/25/2024 09/24/2025 1 1 Encounter Details Date Type Department Care Team (Latest Contact Info) Description 07/05/2024 9:30 AM EDT Ancillary Procedure [facility] [address] [address] care in second trimester, unspecified Social History Tobacco Use Types Packs/Day Years Used Date Smoking Tobacco: Never Smokeless Tobacco: Never Alcohol Use Standard Drinks/Week Comments Never 0 (1 standard drink = 0.6 oz pur e alcohol) [facility] Utilities Answer Date Recorded In the past 12 months has th e electric, gas, oil, or water company threatened [...] and heating? Not hard at all 05/28/2024 [facility] - Occupational Stress [...] none 05/28/2024 Family and Community Support Answer Bart e Recorded If for any reason you [...] GED or equivalent No 05/28/2024 Preferred Language Liberian 05/28/2024 PHQ-2 Answer Date Recorded Patient Health Questionnaire-9 Score 2 05/28/2024 Estimated Date of Delivery Comme nts Yes 12/01/2024 Based on last me nstrual period of 02/25/2024 Sex and Gender Information Value Date Recorded Sex Assigned at Female 07/04/2024 10:40 AM EDT Legal Sex Female 10:26 AM EDT Gender Identity Not on file Sexual Orientation Not on file documented as of this encounter Plan of Treatment Upcoming Encounters Date Type Department Care Team (Late st Contact Info) Description 09/09/2024 9:30 AM EDT Routine [facility] [address] [place] [address] Jacey Mathews, OVEN HEATER [address] [place] [id number] 09/09/2024 9:30 AM EDT Ancillary Procedure [facility] [address] [place] [address] documented as of this encounter Procedures Procedure Name Priority Date/Time Associated Diagnosis Comments US OB 14 + WEEKS SINGLE OR FIRST GESTATION Routine 07/05/2024 10:17 AM EDT care in second trimester, unspecified documented in this encounter Results * US Ob 14 + Weeks Single or First Gestation (07/05/2024 10:17 AM EDT) Anatomical Region Laterality Modality Body Ultrasound 07/05/2024 10:2 8 AM EDT Narrative 07/09/2024 7:02 PM EDT PAT NAME: CAROLE GIRARD MED REC#: [id number] DA: 1990 PAT GEND: F PAT TYPE: O EXAM BART: [id number] REF PHYS URIEL ROBERTS [employer] Comments Still need heart views and PCI N/L, Kidneys, Legs suboptimal Indication ======== anatomy survey Comparison Studies There are no relevant prior studies to which this study is being compared Method ======= Voluson E6, Transabdominal ultrasound examination. View: Suboptimal view: limited by early gestational age ========= Love . Number of fetuses: 1 Dating ====== Method of dating: based on stated DUSTY GA by prior assessment 18 w + 5 d DUSTY by prior assessment: 12/01/2024 Ultrasound examination on: 07/05/2024 GA by U/S based upon: AC, BPD, Femur, HC GA by U/S 18 w + 3 d DUSTY by U/S: 12/03/2024 Previous dating: based on stated DUSTY, selected on 06/25/2024 Agreed DUSTY of previous datin12/01/2024 Assigned: based on stated DUSTY, selected on 07/05/2024 Assigned GA 18 w + 5 d Assigned DUSTY: 12/01/2024 length 280 d General Evaluation Cardiac activity present. FHR 129 bpm. movements present. Presentation breech. Placenta Placental site: anterior. Umbilical cord Cord vessels: 3 vessel cord. Insertion site: Not visible. Amniotic fluid Amount of AF: normal. MVP 3.8 cm. Biometry Standard BPD 37.7 mm 17w 4d 8% Hadlock HC 151.0 mm 18w 1d 17% Hadlock Cerebellum tr 19.3 mm 18w 5d 45% Hill Nuchal fold 3.6 mm AC 133.2 mm 18w 6d 50% Hadlock Femur 30.2 mm 19w 2d 67% Hadlock HC / AC 1.13 20% Hadlock EFW 264 g 18w 6d 56% Hadlock EFW (lb) 0 lb EFW (oz) 9 oz EFW by: Hadlock ([id number]) Extended Air Drill Operator 6.4 mm CM 3.3 mm 11% Nicolaides Extremities / Bony Struc FL / BPD 0.80 >99% Hadlock FL / HC 0.20 98% Hadlock FL / AC 0.23 89% Hadlock Other Structures FHR 129 bpm Anatomy Cranium: Appears normal Lateral ventricles: Appears normal Choroid plexus: Appears normal Midline falx: Appears normal Cavum septi pellucidi: Appears normal Cerebellum: Appears normal Cisterna magna: Appears normal Lips: suboptimal Profile: Appears normal Nose: suboptimal 4-chamber view: not visualized RVOT view: not visualized LVOT view: not visualized Heart / Thorax 3-vessel view: not visualized 4-ydkfuh-kyxdrip view: not visualized Diaphragm: Appears normal Diaphragm: Intact Cord insertion: Appears normal Stomach: Appears normal Kidneys: suboptimal Bladder: Appears normal Genitals: Appears normal Abdomen Abdom. wall: Abdominal wall is intact Stomach: left-sided Cervical spine: Appears normal Thoracic spine: Appears normal Lumbar spine: Appears normal Sacral spine: Appears normal Arms: Appears normal Legs: suboptimal Rt arm: Appears normal Lt arm: Appears normal Rt hand: Appears normal Lt hand: Appears normal Rt leg: Appears normal Lt leg: Appears normal Rt foot: Appears normal Lt foot: Appears normal Gender: female Maternal Structures Uterus / Cervix Uterus: Visualized Cervix: Visualized Cervical length 32.6 mm Ovaries / Tubes / Adnexa Rt ovary: Not visualized Lt ovary: Not visualized Impression Ultrasound 18 weeks 3 days. Estimated weight 56%. Placenta anterior three-vessel cord. Amniotic fluid normal. Breech presentation. movements present. heart tones 129. Anatomy appears normal except for face heart point of cord insertion nose and lips and legs. Recommendation If needed clinically, the patient should return at a subsequent visit to complete the anatomic screening. [employer]: Soo Harding RDMS Physician: Uriel Roberts II, MD, FACOG Electronically signed by: Uriel Roberts II, MD, FACOG at: 19:02 Procedure Note Uriel Roberts MD - 07/09/2024 PAT NAME: CAROLE GIRARD MED REC#: [id number] DA: 1990 PAT GEND: F PAT TYPE: O EXAM BART: [id number] REF PHYS URIEL ROBERTS [employer] Comments Still need heart views and PCI N/L, Kidneys, Legs suboptimal Indication ======== anatomy survey Comparison Studies There are no relevant prior studies to which this study is beingcompared Method ======= Voluson E6, Transabdominal ultrasound examination. View: Suboptimal view:limited by early gestational age ========= Love . Number of fetuses: 1 Dating ====== Method of dating:based on stated DUSTY GA by prior [id number] w + 5 d DUSTY by prior assessment:12/01/2024 Ultrasound examination on:07/05/2024 GA by U/S based upon:AC, BPD, Femur, HC GA by U/S18 w + 3 d DUSTY by U/S:12/03/2024 Previous dating:based on stated DUSTY, selected on 06/25/2024 Agreed DUSTY of previous datin12/01/2024 Assigned:based on stated DUSTY, selected on 07/05/2024 Assigned GA18 w + 5 d Assigned DUSTY:12/01/2024 [id number] d General Evaluation Cardiac activity present. FHR 129 bpm. movements present. Presentation breech. Placenta Placental site: anterior. Umbilical cord Cord vessels: 3 vessel cord. Insertion site: Not visible. Amniotic fluid Amount of AF: normal. MVP 3.8 cm. Biometry Standard BPD37.7 mm 17w 4d 8% Hadlock HC151.0 mm 18w 1d 17% Hadlock Cerebellum tr19.3 mm 18w 5d 45% Hill Nuchal fold3.6 mm AC133.2 mm 18w 6d 50% Hadlock Femur30.2 mm 19w 2d 67% Hadlock HC / AC1.13 20% Hadlock [id number] g 18w 6d 56% Hadlock EFW (lb)0 lb EFW (oz)9 oz EFW by:Hadlock ([id number]) Extended Vp6.4 mm CM3.3 mm 11% Nicolaides Extremities / Bony Struc FL / BPD0.80 >99% Hadlock FL / HC0.20 98% Hadlock FL / AC0.23 89% Hadlock Other Structures [id number] bpm Anatomy Cranium:Appears normal Lateral ventricles:Appears normal Choroid plexus:Appears normal Midline falx:Appears normal Cavum septi pellucidi:Appears normal Cerebellum:Appears normal Cisterna magna:Appears normal Lips:suboptimal Profile:Appears normal Nose:suboptimal 4-chamber view:not visualized RVOT view:not visualized LVOT view:not visualized Heart / Thorax 3-vessel view:not visualized 8-[id number]-[id number] view:not visualized Diaphragm:Appears normal Diaphragm:Intact Cord insertion:Appears normal Stomach:Appears normal Kidneys:suboptimal Bladder:Appears normal Genitals:Appears normal Abdomen Abdom. wall:Abdominal wall is intact Stomach:left-sided Cervical spine:Appears normal Thoracic spine:Appears normal Lumbar spine:Appears normal Sacral spine:Appears normal Arms:Appears normal Legs:suboptimal Rt arm:Appears normal Lt arm:Appears normal Rt hand:Appears normal Lt hand:Appears normal Rt leg:Appears normal Lt leg:Appears normal Rt foot:Appears normal Lt foot:Appears normal Gender:female Maternal Structures Uterus / Cervix Uterus:Visualized Cervix:Visualized Cervical ijeioq85.6 mm Ovaries / Tubes / Adnexa Rt ovary:Not visualized Lt ovary:Not visualized Impression Ultrasound 18 weeks 3 days. Estimated weight 56%. Placenta anteriorthree- vessel cord. Amniotic fluid normal. Breech presentation. Fetalmovements present. heart tones 129. Anatomy appears normal except for face heart pointof cord insertion nose and lips and legs. Recommendation If needed clinically, the patient should return at a subsequent visit tocomplete the anatomic screening. [employer]: Soo Harding RDMS Physician: Uriel Roberts II, MD, FACOG Electronically signed by: Uriel Roberts II, MD, FACOG at: 0319:02 us Uriel Roberts MD [facility] [place] Final Result documented in this encounter Visit Diagnoses Diagnosis care in second trimester, unspecified documented in this encounter Additional Health Concerns Assessment Noted Time PHQ-2 Depression Total Score: 2 05/28/19 25 4:39 PM EDT documented as of this encounter Care Teams Factory Focus Technician Relationship Specialty Start Date End Date Norma Friedman APRN [address] [place] G3 [place]FA[place]H [id number] PCP - General Family Medicine 05/14/24 documented as of this encounter
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
--- OUTSIDE RECORDS SUMMARY | 2024-07-22 07:44 | XMS_ITS | Encounter Summary ---
Author Organization [facility] Address [address] [place] [id number] Care Team Providers Care Funnel Coater Name Role Phone Norma Friedman APRN Primary Care Provider + [phone] Reason for Referral * Diagnostic Imaging (Routine) - Closed Specialty Diagnoses / Procedures Referred By Tarik pedersen Referred To Contact Radiology Diagnoses care, antepartum, unspecified High risk due to history of labor, antepartum History of prior with small for gestational age Procedures [facility] Kelly Watkins APRN [address] [facility] [address] [place] [address] Phone: tel: fax: [facility] US PER DIAG CTR [address] [place] [address] Phone: tel: Referral ID Status Reason Start Date Expiration Date Visits Re quested Visits Authorized [id number] Closed 07/08/2024 10/07/2025 1 1 Reason for Visit * Diagnostic Imaging (Routine) - Closed Specialty Diagnoses / Procedures Referred By Tarik t Referred To Contact Radiology Diagnoses care, antepartum, unspecified High risk due to history of labor, antepartum History of prior with small for gestational age Procedures [facility] Kelly Watkins APRN [address] [facility] [address] [place] [address] Phone: tel: fax: [facility] US PER DIAG CTR [address] [place] [address] Phone: tel: Referral ID Status Reason Start Date Expiration Date Visits Re quested Visits Authorized [id number] Closed 07/08/2024 10/07/2025 1 1 Encounter Details Date Type Department Care Team (Late st Contact Info) Description 07/22/2024 7:44 AM EDT - 07/22/2024 11:59 PM EDT Hospital Encounter [facility] PER DIAG [facility] [address] [place] [phone] Kelly Watkins, SCHEDULING ANALYST [address] [place] [address] care, antepartum, unspecified ; High risk due to history of labor, antepartum; History of prior with small for gestational age Discharge Disposition: Home or Self Care Social History Tobacco Use Types Packs/Day Years Used Date Smoking Tobacco: Never Smokeless Tobacco: Never Alcohol Use Standard Drinks/Week Comments Never 0 (1 standard drink = 0.6 oz pur e alcohol) [facility] Utilities Answer Date Recorded In the past 12 months has [employer] electric, gas, oil, or water [employer] threatened to shut off services in your [...] and heating? Not hard at all 05/28/2024 [facility] [place] of Occupat ional Health - Occupational Stress [...] GED or equivalent No 05/28/2024 Preferred Language Hungarian 05/28/2024 PHQ-2 Answer Date Recorded Patient Health [...] Info) Description 09/09/2024 9:30 AM EDT Routine [facility] [place] [address] Jacey Mathews, SCHEDULING ANALYST [address] [facility] [address] [place] [address] 09/09/2024 9:30 AM EDT Ancillary Procedure [facility] OBGYN [address] [place] [address] documented as of this encounter Procedures Procedure Name Priority Date/Time Associated Diagnosis Comments [facility] Routine 07/22/2024 9:10 AM EDT care, antepartum, unspecified High risk due to history of labor, antepartum History of prior with small for gestational age documented in this encounter Results * [facility] (07/22/2024 9:10 AM EDT) Anatomical Region Laterality Modality Ultrasound 07/22/2024 8:20 AM EDT Narrative 07/22/2024 9:18 AM EDT PAT NAME: CAROLE GIRARD MED REC#: [id number] DA: 1990 PAT GEND: F PAT TYPE: O EXAM TRAVIS: [id number] REF PHYS KELLY WATKINS Comparison Studies There [...] EFW (oz) 13 oz EFW by: Hadlock (NSY-AI-PA-FL) Extended Tibia 28.0 mm 20w 1d 17% Jamal Fibula 27.3 mm 19w 5d 17% Jamal Radius 26.9 mm 20w 0d 36% Jamal Ulna 30.0 mm 21w 1d 33% Jamal Cav. septi pel. tr 3.7 mm Varnish Maker Helper 5.4 mm CM 4.7 mm 32% Nicolaides [...] normal IVC: normal 3-vessel view: Appears normal 2-tpsjqm-wqbjghr view: Appears normal Rt lung: Appears normal [...] Follow-up as clinically indicated. Coding ======= Description: 83782-36 Detailed Hat Block Maker: Cheyenne Spence RDMS Physician: Sebastian Larsen MD, FACOG Electronically signed by: Sebastian Larsen MD, FACOG at: 09:18 Procedure Note Sebastian Larsen MD - 07/22/2024 PAT NAME: CAROLE GIRARD MED REC#: [id number] DA: [id number] PAT GEND: F PAT TYPE: O EXAM TRAVIS: [id number] REF PHYS KELLY WATKINS Comparison Studies There are no relevant prior studies to which this study is beingcompared Patient Status Outpatient Indication ======== Incomplete anatomy, previous SGA, hx c/s x1 Maternal Assessment Anmmhh746 cm Height (ft)5 ft Height (in)4 in Pojepq16 kg Weight (lb)163 lb BMI28.17 kg/m Method ======= Transabdominal ultrasound examination ========= Love . Number of fetuses: 1 Dating ====== Method of dating:based on stated DUSTY GA by prior nmhltbsrgi85 w + 1 d DUSTY by prior assessment:12/01/2024 Ultrasound examination on:07/22/2024 GA by U/S based upon:AC, BPD, Femur, HC GA by U/S20 w + 5 d DUSTY by U/S:12/04/2024 Previous dating:based on stated DUSTY, selected on 07/05/2024 Agreed DUSTY of previous datin12/01/2024 Assigned:based on stated DUSTY, selected on 07/22/2024 Assigned GA21 w + 1 d Assigned DUSTY:12/01/2024 tyqlbj987 d Biometry Standard BPD47.5 mm 20w 3d 19% Hadlock OFD63.7 mm 21w 5d 69% Jamal HC177.8 mm 20w 2d 9% Hadlock Cerebellum tr22.0 mm 20w 4d 46% Hill AC160.4 mm 21w 1d 43% Hadlock Femur33.9 mm 20w 5d 24% Hadlock Jabbngt72.7 mm 21w 0d 40% Jamal HC / AC1.11 RKY403 g 20w 5d 29% Hadlock EFW (lb)0 lb EFW (oz)13 oz EFW by:Hadlock (LXA-RV-QA-FL) Extended Tibia28.0 mm 20w 1d 17% Jamal Vrpgjs65.3 mm 19w 5d 17% Jamal Yhvzom86.9 mm 20w 0d 36% Jamal Ulna30.0 mm 21w 1d 33% Jamal Cav. septi pel. tr3.7 mm Vp5.4 mm CM4.7 mm 32% Nicolaides Head / Face / Neck Cephalic index0.75 11% Nicolaides Extremities / Bony Struc FL / BPD0.71 FL / HC0.19 FL / AC0.21 Other Structures VST485 bpm General Evaluation Cardiac activity present. FHR [...] view:Appears normal SVC:normal IVC:normal 3-vessel view:Appears normal 3-scpfvo-envbeyp view:Appears normal Rt lung:Appears normal Lt lung:normal [...] Structures Uterus / Cervix Cervix:Visualized Approach:Transabdominal Cervical .6 mm Ovaries / Tubes / Adnexa Rt ovary:Visualized Lt ovary:Visualized Impression Today's exam reveals a SIUP with biometry consistent with dates. Fetalanatomic survey appears normal. Fluid is normal. The placenta is anterior,left. The TA cervical length appears adequate Recommendation Follow-up as clinically indicated. Coding ======= Description:05248-97 Detailed Hat Block Maker: Cheyenne Spence RDMS Physician: Sebastian Larsen MD, FACOG Electronically signed by: Sebastian Larsen MD, FACOG at: 09:18 us Kelly Watkins SCHEDULING ANALYST IMG US ORDERABLES Final Resu lt documented in this encounter Visit Diagnoses Diagnosis care, antepartum, unspecified High risk due to history of labor, antepartum History of prior with small for gestational age documented in this encounter Additional Health Concerns Assessment Noted Time PHQ-2 Depression Total Score: 2 05/28/19 25 4:39 PM EDT documented as of this encounter Care Teams Funnel Coater Relationship Specialty Start Date End Date Norma Friedman APRN [address] [place] G3 RAFAELA APPIAH [address] PCP - General Family Medicine 05/14/24 documented as of this encounter
--- OUTSIDE RECORDS SUMMARY | 2024-07-22 08:00 | XMS_ITS | Encounter Summary ---
Author Organization [facility] Address [address] [place] [id number] Care Team Providers Care Web Production Manager Name Role Phone vIyashlyn Norma FERNÁNDEZ Primary Care Provider + [phone] Reason for Visit * Reason Comments incomplete anatomy; hx SGA in prev. preg onelia; prev. c/s Encounter Details Date Type Department Care Team (Late st Contact Info) Description 07/22/2024 8:00 AM EDT Office Visit [facility] MATERNAL MEDICINE [address] [place] [address] [place] [address] Sebastian Larsen MD 1700 [facility] [address] [place] [phone] History of prior with small for gestational age (Primary Dx) Social History Tobacco Use Types Packs/Day Years Used Date Smoking Tobacco: Never Smokeless Tobacco: Never Alcohol Use Standard Drinks/Week Comments Never 0 (1 standard drink = 0.6 oz pur e alcohol) [facility] Utilities Answer Date Recorded In the past 12 months has [employer] electric, gas, oil, or water company threatened [...] and heating? Not hard at all 05/28/2024 [facility] [place] of Occupat ional Health - Occupational Stress [...] GED or equivalent No 05/28/2024 Preferred Language Scottish 05/28/2024 PHQ-2 Answer Date Recorded Patient Health [...] Info) Description 09/09/2024 9:30 AM EDT Routine [facility] OBGYN [address] [place] [address] Jacey Mathews, GEOLOGICAL SCOUT 1700 [facility] [place] [address] [place] [address] 09/09/2024 9:30 AM EDT Ancillary Procedure [facility] OBGYN [address] [place] [address] documented as of this encounter Visit Diagnoses Diagnosis History of prior with small for gestational age - Primary documented in this encounter Additional Health Concerns Assessment Noted Time PHQ-2 Depression Total Score: 2 05/28/19 25 4:39 PM EDT documented as of this encounter Care Teams Web Production Manager Relationship Specialty Start Date End Date Norma Friedman APRN [address] [place] [address] [place] [address] PCP - General Family Medicine 05/14/24 documented as of this encounter
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
--- OUTSIDE RECORDS SUMMARY | 2024-08-19 10:15 | XMS_ITS | Encounter Summary ---
[facility] [address] [place] [address] Care Team Providers Care Fireworks Display Specialist Name Role Phone Norma Friedman APRN Primary Care Provider + [phone] Reason for Visit * Reason Comments Routine Visit Encounter Details Date Type Department Care Team (Late st Contact Info) Description 08/19/2024 10:15 AM EDT Routine [facility] OBGYN [address] [place] [address] Jacey Mathews, FLAG MAKER [address] [place] [address] GA: 25w1d Social History Tobacco Use Types Packs/Day Years Used Date Smoking Tobacco: Never Smokeless Tobacco: Never Alcohol Use Standard Drinks/Week Comments Never 0 (1 standard drink = 0.6 oz pur e alcohol) [facility] Utilities Answer Date Recorded In the past 12 months has [employer], gas, oil, or water [employer] threatened to shut off services in your [...] and heating? Not hard at all 05/28/2024 [facility] [place] [facility] Health - Occupational Stress Questionnaire Answer [...] this encounter Progress Notes * Jacey Mathews, FLAG MAKER - 08/19/2024 10:15 AM EDT Images from [...] Info) Description 09/09/2024 9:30 AM EDT Routine [facility] OBGYN [address] [place] [address] Jacey Mathews APRN [address] [facility] [address] [place] [address] 09/09/2024 9:30 AM EDT Ancillary Procedure [facility] OBGYN [address] [place] [address] documented as of this encounter Visit Diagnoses Diagnosis Vaginal bleeding in - Primary 25 weeks gestation of documented in this encounter Additional Health Concerns Assessment Noted Time PHQ-2 Depression Total Score: 2 05/28/19 4:39 PM EDT documented as of this encounter Care Teams Fireworks Display Specialist Relationship Specialty Start Date End Date Norma Friedman APRN [address] [place] [address] [place] [address] PCP - General Family Medicine 05/14/24 documented as of this encounter
--- OUTSIDE RECORDS SUMMARY | 2024-08-19 13:59 | XMS_ITS | Encounter Summary ---
[facility] Address [address] [place] [id number] Care Team Providers Care Polytechnic Teacher Name Role Phone Ivyashlyn Norma FERNÁNDEZ Primary Care Provider + [phone] Reason for Visit * Reason Comments Vaginal Bleeding * Auth/Cert (Routine) Specialty Diagnoses / Procedures Referred By Contleyla t Referred To Contact Referral ID Status Reason Start Date Expiration Date Visits Re quested Visits Authorized [id number] 1 1 Encounter Details Date Type Department Care Team (Late st Contact Info) Description 08/19/2024 1:59 PM EDT - 08/20/2024 4:28 PM EDT Hospital Encounter [facility] [address] [place] [phone] Rob Wharton MD [address] [facility] [address] [place] [address] Blu Alvarado MD [address] [facility] [phone] Dysphagia, unspecified type (Primary Dx) Discharge Disposition: Home or Self Care Social History Tobacco Use Types Packs/Day Years Used Date Smoking Tobacco: Never Smokeless Tobacco: Never Alcohol Use Standard Drinks/Week Comments Never 0 (1 standard drink = 0.6 oz pur e alcohol) [facility] Utilities Answer Date Recorded In the past 12 months has [employer], gas, oil, or water [employer] threatened to shut off services in [...] heating? Not hard at all 05/28/2024 [facility] [place] of Occupat ional Health - Occupational Stress [...] GED or equivalent No 05/28/2024 Preferred Language Yemeni 05/28/2024 PHQ-2 Answer Date Recorded Patient Health [...] 1:23 PM EDT Polly Lacey RN * [place] Suicide Severity Rating Scale (Screener/Recent Self-Report) Question Answer Date of Assessment Author 6. Suicidal Behavior (Lifetime) No 1:23 PM EDT Polly Cabrera RN documented as of this encounter Discharge Instructions * Attachments The following attachments cannot be sent through Care Everywhere. * Second Trimester of (Yemeni) * Upper Endoscopy Adult Care After (Yemeni) documented in this encounter Medications at Time [...] 08/19/2024 RH Positive 08/19/2024 ABSCRN Negative 08/19/2024 [id number] non-reactive 04/12/2024 HEPCVIRUSABY negative 04/12/2024 URINECX Final [...] IUPC: Resting Tone: Resting Tone by IUPC: Maryam Units: Cervix: Exam by: Method: sterile vaginal [...] from the original note were not included. [facility] Obstetric History and Physical Referring Provider: [...] her third trimesters prior pregnancies(etiology unknown). Patient's sap bods developer is in [facility]. She states has never had a EGD [...] IUPC: Resting Tone: Resting Tone by IUPC: Gilberts Units: Laboratory Results: Lab Results (last 24 [...] EDTAssociated Order(s): IP CONSULT TO GASTROENTEROLOGY [facility] Gastroenterology Consult Referring Provider: [...] expresses concern regarding recent CT scan at [facility] revealing a hiatal hernia. CT scan done prior to most recent due to ovarian cyst and incidentally revealed hiatal hernia. She reports chronic gastrointestinal symptoms. Review of medical record revealed prior GI referral due to blood per rectum. She reports colonoscopy in 2020 at outside facility that revealed diverticulosis and benign colon polyp. She is currently established with provider at [facility] for gastroenterology care she reports repeat EGD [...] , await recommendations following EGD - consider PACK CHANGER evaluation if no etiology for difficulty swallowing [...] in this encounter Nursing Notes * Pilar Verduzco, RN - 08/20/2024 12:58 PM EDT heart [...] from the original note were not included. [facility] Obstetric History and Physical Referring Provider: [...] her third trimesters prior pregnancies(etiology unknown). Patient's sap bods developer is in [facility]. She states has never had a EGD [...] IUPC: Resting Tone: Resting Tone by IUPC: Gilberts Units: Laboratory Results: Lab Results (last 24 [...] Info) Description 09/09/2024 9:[address] [facility] [address] [place] [address] Jacey Mathews, LABORATORY DEVELOPMENT TECHNICIAN [address] [facility] [address] [place] [address] 09/09/2024 9:30 AM EDT Ancillary Procedure [facility] [address] [place] [address] documented as of this encounter Procedures Procedure Name Priority Date/Time Associated Diagnosis Comments TISSUE PATHOLOGY EXAM Routine 08/20/2024 1:55 PM EDT Dysphagia, unspecified type [place] ESOPHAGOGASTRODUODENOSCOP Y TRANSORAL DIAGNOSTIC 08/20/2024 1:44 PM EDT Dysphagia, unspecified type UPPER GI ENDOSCOPY 08/20/2024 1:09 PM EDT BASIC METABOLIC PANEL STAT 08/20/2024 5:25 AM EDT POTASSIUM STAT 08/19/2024 8:53 PM EDT ABORH 2ND SPECIMEN VERIFICATION STAT 08/19/2024 4:34 PM EDT NONSTRESS TEST Routine 08/19/2024 4:17 PM EDT [facility] Routine 08/19/2024 3:25 PM [...] EDT) Case Report Surgical Pathology Report Case: [id number] Authorizing Provider: Blu Alvarado MD Collected: 08/20/2024 01:55 PM Ordering Location: [facility] Received: 08/20/2024 02:14 PM ENDO SUITES Pathologist: Khalida Rhoades DO Specimen: Gastric, Antrum, antrum bx for path 08/22/2024 9:18 AM EDT [facility] Clinical Information Dysphagia, unspecified type 08/22/2024 9:18 AM EDT [facility] Final Diagnosis Stomach, antrum, biopsy: 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 pylori is negative (no organisms are identified) Negative for intestinal metaplasia, dysplasia, or malignancy 08/22/2024 9:18 AM EDT [facility] at 0918 EDT Gross Description 1. Gastric, Antrum. Received in formalin labeled antrum biopsy is a 0.4 x 0.2 x 0.2 cm pink-see soft tissue fragment submitted entirely in a single cassette. HDM 08/22/2024 9:18 AM EDT [facility] Microscopic Description The slides are reviewed and demonstrate histopathologic features supporting the above rendered diagnosis. 08/22/2024 9:18 AM EDT [facility] Tissue Pyloric antrum structure / Unknown 08/20/2024 1:55 PM EDT 08/20/2024 2:14 PM EDT us Blu Alvarado MD PATHOLOGY/CYTOLOGY ORDERABLES Final Result [facility]
[address] [place] [address], * Upper GI Endoscopy (08/20/2024 1:09 PM EDT) us Blu Alvarado MD INTERFACE NEEDS Final Result * (ABNORMAL) Basic Metabolic Panel (08/20/2024 5:25 AM EDT) Glucose 84 65 - 99 mg/dL 08/20/2024 6:13 AM EDT [facility] BUN 2.3(L) 6.0 - 20.0 mg/dL 08/20/2024 6:13 AM T [facility] Creatinine 0.51(L) 0.57 - 1.00 mg/dL 08/20/2024 6:13 AM T [facility] Sodium 139 136 - 145 mmol/L 08/20/2024 6:13 AM EDT [facility] Potassium 3.5 3.5 - 5.2 mmol/L 08/20/2024 6:13 AM EDT [facility] Chloride 109(H) 98 - 107 mmol/L 08/20/2024 6:13 AM EDT [facility] CO2 23.5 22.0 - 29.0 mmol/L 08/20/2024 6:13 AM [facility] Calcium 7.8(L) 8.6 - 10.5 mg/dL 08/20/2024 6:13 AM [facility] BUN/Creatinine Ratio 4.5(L) 7.0 - 25.0 08/20/2024 6:13 AM T [facility] Anion Gap 6.5 5.0 - 15.0 mmol/L 08/20/2024 6:13 AM [facility] eGFR 126.6 >60.0 mL/min/1.7 3 08/20/2024 6:13 AM [facility] Blood Venipuncture / Unknown 08/20/2024 5:25 AM EDT 08/20/2024 5:46 AM EDT [facility] - 08/20/2024 6:13 AM EDT [...] MD LAB BLOOD ORDERABLES Final Resu lt [facility]
[address] [place] [address], * (ABNORMAL) Potassium (08/19/2024 8:53 PM EDT) Potassium 2.7(L) 3.5 - 5.2 mmol/L 08/19/2024 9:20 PM EDT [facility] Blood Venipuncture / Unknown 08/19/2024 8:53 PM EDT 08/19/2024 9:04 PM EDT Kt Fan DO LAB BLOOD ORDERABLES Final Result Performing Organization Address City/[facility]/ZIP Co de Phone Number [facility]
[address] [place] [address], * ABO RH Specimen Verification (08/19/2024 4:34 PM EDT) ABO Type O 08/19/2024 7:39 PM EDT [facility] RH type Positive 08/19/2024 7:39 PM EDT [facility] Blood Venipuncture / Unknown 08/19/2024 4:34 PM EDT 08/19/2024 4:53 PM EDT Rob Wharton MD BLOOD BANK TEST ORDER FRANCO Final Result Performing Organization Address City/[facility]/ZIP Co de Phone Number [facility]
[address] [place] [address], * [facility] (08/19/2024 3:25 PM EDT) Anatomical Region Laterality Modality Ultrasound 08/19/2024 3:09 PM EDT Narrative 08/19/2024 4:54 PM EDT PAT NAME: CAROLE GIRARD MED REC#: [id number] DA: 1990 PAT GEND: F PAT TYPE: E EXAM TRAVIS: [id number] REF PHYS ROB WHARTON Comparison Studies The [...] EFW (oz) 9 oz EFW by: Hadlock ([id number]) Extended Cav. septi pel. tr 4.7 mm Machine Clipper 3.8 mm CM 7.5 mm 84% Nicolaides [...] Heart / Thorax 3-vessel view: Appears normal 1-gcgmot-xgqqbsf view: Appears normal Stomach: Appears normal Kidneys: [...] in 4wks for growth. Coding ======= Description: 53215-60 Follow Up Tank Builder: Alison Verduzco RT R , RDMS Physician: Jo Chappell MD Electronically signed by: Jo Chappell MD at: 16:54 Procedure Note Jo Chappell MD - 08/19/2024 PAT NAME: CAROLE GIRARD MED REC#: [id number] DA: [id number] PAT GEND: F PAT TYPE: E EXAM TRAVIS: [id number] REF PHYS ROB WHARTON Comparison Studies The findings of this study are compared to the prior ultrasound studydated 07/22/24 Patient Status Inpatient Indication ======== History of c/s x1. History of . Vaginal bleeding. Maternal Assessment Yryrsq836 cm Height (ft)5 ft Height (in)4 in Pmyzfo72 kg Weight (lb)158 lb BMI27.31 kg/m Method ======= Transabdominal ultrasound examination. View: Limited by patient bodyhabitus ========= Love . Number of fetuses: 1 Dating ====== Method of dating:based on stated DUSTY GA by prior [id number] w + 1 d DUSTY by prior assessment:12/01/2024 Ultrasound examination on:08/19/2024 GA by U/S based upon:AC, BPD, Femur, HC GA by U/S24 w + 2 d DUSTY by U/S:12/07/2024 Previous dating:based on stated DUSTY, selected on 07/22/2024 Agreed DUSTY of previous datin12/01/2024 Assigned:based on stated DUSTY, selected on 08/19/2024 Assigned GA25 w + 1 d Assigned DUSTY:12/01/2024 [id number] d Biometry Standard BPD57.6 mm 23w 4d 5% Hadlock OFD81.6 mm 26w 4d 88% Jamal HC225.7 mm 24w 4d 13% Hadlock Cerebellum tr28.9 mm 25w 2d 62% Hill AC194.9 mm 24w 1d 15% Hadlock Femur44.9 mm 24w 6d 27% Hadlock Ykunfve73.3 mm 25w 3d 50% Jamal HC / AC1.16 DMB143 g 24w 2d 16% Hadlock EFW (lb)1 lb EFW (oz)9 oz EFW by:Hadlock ([id number]) Extended Cav. septi pel. tr4.7 mm Vp3.8 mm CM7.5 mm 84% Nicolaides Head / Face / Neck Cephalic index0.71 <1% [place]olaides Extremities / Bony Struc FL / BPD0.78 FL / HC0.20 FL / AC0.23 Other Structures GOB518 bpm General Evaluation Cardiac activity present. FHR [...] normal Heart / Thorax 3-vessel view:Appears normal 4-uuglan-uzxhhqi view:Appears normal Stomach:Appears normal Kidneys:Appears normal Bladder:Appears normal Gender:female Wants to know gender:yes Maternal Structures Uterus / Cervix Cervix:Visualized Approach:Transabdominal Cervical ztimgl99.9 mm Doppler Arterial Umbilical A PI1.01 32% Colt Umbilical A RI0.65 28% Oclt Umbilical A PS25.46 cm/s <1% Ebbing Umbilical [...] office in 4wks for growth. Coding ======= Description:21560-57 Follow Up Tank Builder: RT Annetta Hartmann , [facility] Physician: Jo Chappell MD Electronically signed by: Jo Chappell MD at: 16:54 us Kt Fan DO [facility] US ORDERABLES Final Res ult * Protein / Creatinine Ratio, Urine - Urine, Clean Catch (08/19/2024 3:02 PM EDT) Protein/Creati nine Ratio, Urine 126.1 0.0 - 200.0 mg/G Crea 08/20/2024 12:47 AM EDT [facility] Creatinine, Urine 148.3 mg/dL 08/20/2024 12:47 AM EDT [facility] Total Protein, Urine 18.7 mg/dL 08/20/2024 12:47 AM EDT [facility] Urine Urine specimen obtained by clean catch procedure / Unknown Collection / Unknown 08/19/2024 3:02 PM EDT 08/19/2024 4:26 PM EDT Kt Fan DO URINE ORDERABLES Final Resu lt [facility]
[address] [place] [address], * (ABNORMAL) Magnesium (08/19/2024 3:02 PM EDT) Magnesium 1.5(L) 1.6 - 2.6 mg/dL 08/19/2024 5:12 PM EDT [facility] Blood Line / Unknown 08/19/2024 3: 02 PM EDT 08/19/2024 3:10 PM EDT Kt Fan DO LAB BLOOD ORDERABLES Final Result [facility]
[address] [place] [address], [place] [phone] * Urinalysis, Microscopic Only - Urine, Clean Catch (08/19/2024 3:02 PM EDT) RBC, UA 0-2 None Seen, 0-2 /HPF 08/19/2024 3:33 PM EDT [facility] WBC, UA 0-2 None Seen, 0-2 /HPF 08/19/2024 3:33 PM EDT [facility] Bacteria, UA None Seen None Seen /HPF 08/19/2024 3:33 PM EDT [facility] Squamous Epithelial Cells, UA 0-2 None Seen, 0-2 /HPF 08/19/2024 3:33 PM EDT [facility] Hyaline Casts, UA None Seen None Seen /LPF 08/19/2024 3:33 PM EDT [facility] Methodology Automated Microscopy 08/19/2024 3:33 PM EDT [facility] Urine Urine specimen obtained by clean catch procedure / Unknown Collection / Unknown 08/19/2024 3:02 PM EDT 08/19/2024 3:13 PM EDT Kt Fan DO URINE ORDERABLES Final Resu lt [facility]
[address] [place] [address], * (ABNORMAL) CBC Auto Differential (08/19/2024 3:02 PM EDT) WBC 9.19 3.40 - 10.80 10*3/mm3 08/19/2024 3:23 PM EDT [facility] RBC 3.58(L) 3.77 - 5.28 10*6/mm3 08/19/2024 3:23 PM EDT [facility] Hemoglobin 10.5(L) 12.0 - 15.9 g/dL 08/19/2024 3:23 PM EDT [facility] Hematocrit 31.4(L) 34.0 - 46.6 % 08/19/2024 3:23 PM EDT [facility] MCV 87.7 79.0 - 97.0 fL 08/19/2024 3:23 PM EDT [facility] MCH 29.3 26.6 - 33.0 pg 08/19/2024 3:23 PM EDT [facility] MCHC 33.4 31.5 - 35.7 g/dL 08/19/2024 3:23 PM EDT [facility] RDW 13.4 12.3 - 15.4 % 08/19/2024 3:23 PM EDT [facility] RDW-SD 42.4 37.0 - 54.0 fl 08/19/2024 3:23 PM EDT [facility] MPV 12.0 6.0 - 12.0 fL 08/19/2024 3:23 PM EDT [facility] Platelets 241 140 - 450 10*3/mm3 08/19/2024 3:23 PM [facility] Neutrophil % 66.8 42.7 - 76.0 % 08/19/2024 3:23 PM [facility] Lymphocyte % 24.4 19.6 - 45.3 % 08/19/2024 3:23 PM EDT [facility] Monocyte % 7.6 5.0 - 12.0 % 08/19/2024 3:23 PM [facility] Eosinophil % 0.7 0.3 - 6.2 % 08/19/2024 3:23 PM [facility] Basophil % 0.2 0.0 - 1.5 % 08/19/2024 3:23 PM [facility] Immature Grans % 0.3 0.0 - 0.5 % 08/19/2024 3:23 PM [facility] Neutrophils, Absolute 6.14 1.70 - 7.00 10*3/mm3 08/19/2024 3:23 PM [facility] Lymphocytes, Absolute 2.24 0.70 - 3.10 10*3/mm3 08/19/2024 3:23 PM [facility] Monocytes, Absolute 0.70 0.10 - 0.90 10*3/mm3 08/19/2024 3:23 PM [facility] Eosinophils, Absolute 0.06 0.00 - 0.40 10*3/mm3 08/19/2024 3:23 PM [facility] Basophils, Absolute 0.02 0.00 - 0.20 10*3/mm3 08/19/2024 3:23 PM [facility] Immature Grans, Absolute 0.03 0.00 - 0.05 10*3/mm3 08/19/2024 3:23 PM [facility] nRBC 0.0 0.0 - 0.2 /100 WBC 08/19/2024 3:23 PM [facility] Blood Line / Unknown 08/19/2024 3: 02 PM EDT 08/19/2024 3:10 PM EDT Kt Fan DO LAB BLOOD ORDERABLES Final Result [facility]
[address] [place] [address], * (ABNORMAL) Urinalysis With Microscopic If Indicated (No Culture) - Urine, Clean Catch (08/19/2024 3:02 PM EDT) Color, UA Yellow Yellow, Straw 08/19/2024 3:33 PM EDT [facility] Appearance, UA Clear Clear 08/19/2024 3:33 PM EDT [facility] pH, UA >=9.0(H) 5.0 - 8.0 08/19/2024 3:33 PM EDT [facility] Specific [place], UA 1.018 1.005 - 1.030 08/19/2024 3:33 PM EDT [facility] Glucose, UA Negative Negative 08/19/2024 3:33 PM EDT [facility] Ketones, UA 15 mg/dL (1+)(A) Negative 08/19/2024 3:33 PM EDT [facility] Bilirubin, UA Negative Negative 08/19/2024 3:33 PM EDT [facility] Blood, UA Negative Negative 08/19/2024 3:33 PM EDT [facility] Protein, UA 30 mg/dL (1+)(A) Negative 08/19/2024 3:33 PM EDT [facility] Leuk Esterase, UA Negative Negative 08/19/2024 3:33 PM EDT [facility] Nitrite, UA Negative Negative 08/19/2024 3:33 PM EDT [facility] Urobilinogen, UA 1.0 E.U./dL 0.2 - 1.0 E.U./dL 08/19/2024 3:33 PM EDT [facility] Urine Urine specimen obtained by clean catch procedure / Unknown Collection / Unknown 08/19/2024 3:02 PM EDT 08/19/2024 3:13 PM EDT us Kt Fan DO URINE ORDERABLES Final Resu lt Performing Organization Address City/[facility]/ZIP Co de Phone Number [facility]
[address] [place] [address], [place] [phone] * Amylase (08/19/2024 3:02 PM EDT) Amylase 73 28 - 100 U/L 08/19/2024 3:36 PM EDT [facility] Blood Line / Unknown 08/19/2024 3: 02 PM EDT 08/19/2024 3:10 PM EDT us Kt Fan DO LAB BLOOD ORDERABLES Final Result Performing Organization Address [facility] Co de Phone Number [facility]
[address] [place] [address], [place] [phone] * Lipase (08/19/2024 3:02 PM EDT) Lipase 13 13 - 60 U/L 08/19/2024 3:36 PM EDT [facility] Blood Line / Unknown 08/19/2024 3: 02 PM EDT 08/19/2024 3:10 PM EDT us Kt Fan DO LAB BLOOD ORDERABLES Final Result Performing Organization Address [facility]/ZIP Co de Phone Number [facility]
[address] [place] [address], [place] [phone] * (ABNORMAL) Comprehensive Metabolic Panel (08/19/2024 3:02 PM EDT) Glucose 75 65 - 99 mg/dL 08/19/2024 3:38 PM EDT [facility] BUN 3.6(L) 6.0 - 20.0 mg/dL 08/19/2024 3:38 PM EDT [facility] Creatinine 0.51(L) 0.57 - 1.00 mg/dL 08/19/2024 3:38 PM EDT [facility] Sodium 137 136 - 145 mmol/L 08/19/2024 3:38 PM EDT [facility] Potassium 2.6(LL) 3.5 - 5.2 mmol/L 08/19/2024 3:38 PM T [facility] Comment:Specimen hemolyzed. Result may be falsely elevated. Chloride 99 98 - 107 mmol/L 08/19/2024 3:38 PM T [facility] CO2 24.2 22.0 - 29.0 mmol/L 08/19/2024 3:38 PM EDT [facility] Calcium 8.8 8.6 - 10.5 mg/dL 08/19/2024 3:38 PM EDT [facility] Total Protein 6.6 6.0 - 8.5 g/dL 08/19/2024 3:38 PM EDT [facility] Albumin 3.4(L) 3.5 - 5.2 g/dL 08/19/2024 3:38 PM T [facility] ALT (SGPT) 10 1 - 33 U/L 08/19/2024 3:38 PM EDT [facility] AST (SGOT) 22 1 - 32 U/L 08/19/2024 3:38 PM EDT [facility] Alkaline Phosphatase 64 39 - 117 U/L 08/19/2024 3:38 PM T [facility] Total Bilirubin 0.5 0.0 - 1.2 mg/dL 08/19/2024 3:38 PM T [facility] Globulin 3.2 gm/dL 08/19/2024 3:38 PM T [facility] Comment:Calculated Result A/G Ratio 1.1 g/dL 08/19/2024 3:38 PM EDT [facility] BUN/Creatinine Ratio 7.1 7.0 - 25.0 08/19/2024 3:38 PM EDT [facility] Anion Gap 13.8 5.0 - 15.0 mmol/L 08/19/2024 3:38 PM EDT [facility] eGFR 126.6 >60.0 mL/min/1.7 3 08/19/2024 3:38 PM EDT [facility] Blood Line / Unknown 08/19/2024 3: 02 PM EDT 08/19/2024 3:10 PM EDT [facility] - 08/19/2024 3:38 PM EDT GFR [...] Fan DO LAB BLOOD ORDERABLES Final Result [facility]
[address] [place] [address], * Type & Screen (08/19/2024 3:02 PM EDT) ABO Type O 08/19/2024 3:51 PM EDT [facility] RH type Positive 08/19/2024 3:51 PM EDT [facility] Antibody Screen Negative 08/19/2024 3:51 PM EDT [facility] T&S Expiration Date 08/22/2024 11:59:59 PM 08/19/2024 3:51 PM EDT [facility] Blood Line / Unknown 08/19/2024 3: 02 PM EDT 08/19/2024 3:15 PM EDT Kt Fan DO BLOOD BANK TEST ORDERABLES Edited Result - Final [facility]
[address] [place] [address], documented in this encounter Visit Diagnoses Diagnosis [...] 08/19/2024 3:55 PM EDT 2000 mL/hr New Bag 08/19/2024 3:02 PM EDT 1,000 mL 2000 [...] 10 mEq 10 0 mL/hr New Bag 08/19/2024 11:33 PM EDT 10 mEq [...] BPA Driven Protocol Open Order & Select [facility] Electrolyte Replacement Protocol Algorithm to View Details [...] any route/form. 0608 (Given - Provider: Yun Nicole RN) Infuvite Adult 10 mL in sodium [...] Nneka Cross, RN)1555 (Restarted - Provider: Nneka Cross, RN) pantoprazole (PROTONIX) injection 40 mg 40 [...] 20 mEq/hr on ECG monitored patients ONLY 182 (New Bag - Provider: Pilar Verduzco RN - Comment: waiting on med from pharmacy)2017 (New Bag - Provider: Yun Nicole RN)215 (New Bag - Provider: Yun Nicole RN - Comment: Slowed down infusion)223 (New Bag - Provider: Yun Nicole, BRIT)2333 (New Bag - Provider: Yun Nicole RN) [...] ONLY 1047 (New Bag - Provider: Pilar Verduzco, RN)1148 (New Bag - Provider: Pilar Verduzco, [...] Yun Nicole, RN)0838 (Stopped - Provider: Pilar Verduzco RN)1043 (New Bag - Provider: Pilar Verduzco, RN)1828 [...] documented as of this encounter Care Teams Polytechn[employer] Teacher Relationship Specialty Start Date End Date Norma Friedman APRN [address] [place] G3 RAFAELA APPIAH [address] PCP - General Family Medicine 05/14/24 documented as of this encounter
--- OUTSIDE RECORDS SUMMARY | 2024-08-20 13:33 | XMS_ITS | Encounter Summary ---
[facility] Address [address] [place] [address] Care Team Providers Care Power Saw Operator Name Role Phone Norma Friedman APRN Primary Care Provider + [phone] Reason for Visit * Reason Comments Vaginal Bleeding * Auth/Cert (Routine) Specialty Diagnoses / Procedures Referred By Tarik t Referred To Contact Referral ID Status Reason Start Date Expiration Date Visits Re quested Visits Authorized [id number] 1 1 Encounter Details Date Type Department Care Team (Late st Contact Info) Description 08/20/2024 1:33 PM EDT - 08/20/2024 2:05 PM EDT Surgery [facility] ENDO SUITES [address] [place] [address] Blu Alvarado MD [address] [facility] [address] [place] [address] ESOPHAGOGASTRODUODENOSCOPY [87947 (CPT )] Social History Tobacco Use Types Packs/Day Years Used Date Smoking Tobacco: Never Smokeless Tobacco: Never Alcohol Use Standard Drinks/Week Comments Never 0 (1 standard drink = 0.6 oz pur e alcohol) [facility] Utilities Answer Date Recorded [...] and heating? Not hard at all 05/28/2024 [facility] - Occupational Stress Questionnaire Answer Date [...] 1:23 PM EDT Polly Lacey RN * [place]eca Suicide Severity Rating Scale (Screener/Recent Self-Report) Question [...] 08/19/2024 RH Positive 08/19/2024 ABSCRN Negative 08/19/2024 [id number] non-reactive 04/12/2024 HEPCVIRUSABY negative 04/12/2024 URINECX Final [...] IUPC: Resting Tone: Resting Tone by IUPC: Ebony Units: Cervix: Exam by: Method: sterile vaginal [...] from the original note were not included. [facility] Obstetric History and Physical Referring Provider: Rob [...] her third trimesters prior pregnancies(etiology unknown). 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 She states has never had [...] IUPC: Resting Tone: Resting Tone by IUPC: Ebony Units: Laboratory Results: Lab Results (last 24 [...] AM EDTAssociated Order(s): IP CONSULT TO GASTROENTEROLOGY [facility] Gastroenterology Consult Referring Provider: Dr. Fan/Dr. Wharton PCP: Fryman, Eugonda, CLINICAL APPLICATION MANAGER Reason for Consultation: IUP 25 weeks gestation, [...] expresses concern regarding recent CT scan at [facility] revealing a hiatal hernia. CT scan done prior to most recent due to ovarian cyst and incidentally revealed hiatal hernia. She reports chronic gastrointestinal symptoms. Review of medical record revealed prior GI referral due to blood per rectum. She reports colonoscopy in 2020 at outside facility that revealed diverticulosis and benign colon polyp. She is currently established with provider at [facility] for gastroenterology care she reports repeat EGD [...] , await recommendations following EGD - consider PARTITION NOTCHER evaluation if no etiology for difficulty swallowing [...] from the original note were not included. [facility] Obstetric History and Physical Referring Provider: Rob [...] her third trimesters prior pregnancies(etiology unknown). 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 She states has never had [...] IUPC: Resting Tone: Resting Tone by IUPC: Ebony Units: Laboratory Results: Lab Results (last 24 [...] AM EDT Routine [facility] [address] Jacey Mathews, CLINICAL APPLICATION MANAGER [address] [facility] [address] [place] [address] 09/09/2024 9:30 AM EDT Ancillary Procedure [facility] [place] [address] documented as of this encounter Procedures Procedure [...] NONSTRESS TEST Routine 08/19/2024 4:17 PM EDT [facility] Routine 08/19/2024 3:25 [...] EDT) Case Report Surgical Pathology Report Case: [id number] Authorizing Provider: Blu Alvarado MD Collected: 08/20/2024 01:55 PM Ordering Location: [facility] Received: 08/20/2024 02:14 PM ENDO SUITES Pathologist: Khalida Rhoades DO Specimen: Gastric, Antrum, antrum bx for path 08/22/2024 9:18 AM EDT [facility] Clinical Information Dysphagia, unspecified type 08/22/2024 9:18 AM EDT [facility] Final Diagnosis Stomach, antrum, biopsy: 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 pylori is negative (no organisms are identified) Negative for intestinal metaplasia, dysplasia, or malignancy 08/22/2024 9:18 AM EDT [facility] at 0918 EDT Gross Description 1. Gastric, Antrum. Received in formalin labeled antrum biopsy is a 0.4 x 0.2 x 0.2 cm pink-see soft tissue fragment submitted entirely in a single cassette. HDM 08/22/2024 9:18 AM EDT [facility] Microscopic Description The slides are reviewed and demonstrate histopathologic features supporting the above rendered diagnosis. 08/22/2024 9:18 AM EDT [facility] Tissue Pyloric antrum structure / Unknown 08/20/2024 1:55 PM EDT 08/20/2024 2:14 PM EDT us Blu Alvarado MD PATHOLOGY/CYTOLOGY ORDERABLES Final Result [facility]
[address] [place] [address], * Upper GI Endoscopy (08/20/2024 1:09 PM EDT) us Blu Alvarado MD INTERFACE NEEDS Final Result * (ABNORMAL) Basic Metabolic Panel (08/20/2024 5:25 AM EDT) Glucose 84 65 - 99 mg/dL 08/20/2024 6:13 AM EDT [facility] BUN 2.3(L) 6.0 - 20.0 mg/dL 08/20/2024 6:13 AM EDT [facility] Creatinine 0.51(L) 0.57 - 1.00 mg/dL 08/20/2024 6:13 AM EDT [facility] Sodium 139 136 - 145 mmol/L 08/20/2024 6:13 AM EDT [facility] Potassium 3.5 3.5 - 5.2 mmol/L 08/20/2024 6:13 AM EDT [facility] Chloride 109(H) 98 - 107 mmol/L 08/20/2024 6:13 AM EDT [facility] CO2 23.5 22.0 - 29.0 mmol/L 08/20/2024 6:13 AM EDT [facility] Calcium 7.8(L) 8.6 - 10.5 mg/dL 08/20/2024 6:13 AM EDT [facility] BUN/Creatinine Ratio 4.5(L) 7.0 - 25.0 08/20/2024 6:13 AM EDT [facility] Anion Gap 6.5 5.0 - 15.0 mmol/L 08/20/2024 6:13 AM EDT [facility] eGFR 126.6 >60.0 mL/min/1.7 3 08/20/2024 6:13 AM T [facility] Blood Venipuncture / Unknown 08/20/2024 5:25 AM EDT 08/20/2024 5:46 AM EDT [facility] - 08/20/2024 6:13 [...] MD LAB BLOOD ORDERABLES Final Resu lt [facility]
[address] [place] [address], * (ABNORMAL) Potassium (08/19/2024 8:53 PM EDT) Potassium 2.7(L) 3.5 - 5.2 mmol/L 08/19/2024 9:20 PM EDT [facility] Blood Venipuncture / Unknown 08/19/2024 8:53 PM EDT 08/19/2024 9:04 PM EDT Kt Fan DO LAB BLOOD ORDERABLES Final Result Performing Organization Address City/[facility]/ZIP Co de Phone Number [facility]
[address] [place] [address], * ABO RH Specimen Verification (08/19/2024 4:34 PM EDT) ABO Type O 08/19/2024 7:39 PM EDT [facility] RH type Positive 08/19/2024 7:39 PM EDT [facility] Blood Venipuncture / Unknown 08/19/2024 4:34 PM EDT 08/19/2024 4:53 PM EDT Rob Wharton MD BLOOD BANK TEST ORDER FRANCO Final Result Performing Organization Address City/[facility]/ZIP Co de Phone Number [facility] LABOR[facility]
[address] [place] [address], * [facility] (08/19/2024 3:25 PM EDT) Anatomical Region Laterality Modality Ultrasound 08/19/2024 3:09 PM EDT Narrative 08/19/2024 4:54 PM EDT PAT NAME: ERA CAROLE MED REC#: [id number] DA: 1990 PAT GEND: F PAT TYPE: E EXAM TRAVIS: [id number] REF PHYS ROB WHARTON Comparison Studies The [...] prior assessment 25 w + 1 d DSUTY by prior assessment: 12/01/2024 Ultrasound examination on: [...] EFW (oz) 9 oz EFW by: Hadlock ([id number]) Extended Cav. septi pel. tr 4.7 mm Ice Cream Freezer Assistant 3.8 mm CM 7.5 mm 84% [...] Heart / Thorax 3-vessel view: Appears normal 9-cokxwq-rcofzbq view: Appears normal Stomach: Appears normal Kidneys: [...] in 4wks for growth. Coding ======= Description: 94114-84 Follow Up Vegetables Cook: RT Mary Kate R , [facility] Physician: Jo Chappell MD Electronically signed by: Jo Chappell MD at: 16:54 Procedure Note Jo Chappell MD - 08/19/2024 PAT NAME: CAROLE GIRARD MED REC#: [id number] DA: 1990 PAT GEND: F PAT TYPE: E EXAM TRAVIS: [id number] REF PHYS ROB WHARTON Comparison Studies The findings of this study are compared to the prior ultrasound studydated 07/22/24 Patient Status Inpatient Indication ======== History of c/s x1. History of . Vaginal bleeding. Maternal Assessment Sbdepw477 cm Height (ft)5 ft Height (in)4 in Gkmsux57 kg Weight (lb)158 lb BMI27.31 kg/m Method [...] GA25 w + 1 d Assigned DUSTY:12/01/2024 [id number] d Biometry Standard BPD57.6 mm 23w 4d 5% Hadlock OFD81.6 mm 26w 4d 88% Jamal HC225.7 mm 24w 4d 13% Hadlock Cerebellum tr28.9 mm 25w 2d 62% Hill AC194.9 mm 24w 1d 15% Hadlock Femur44.9 mm 24w 6d 27% Hadlock Hyauoaj71.3 mm 25w 3d 50% Jamal HC / AC1.16 MPX100 g 24w 2d 16% Hadlock EFW (lb)1 lb EFW (oz)9 oz EFW by:Hadlock ([id number]-FL) Extended Cav. septi pel. tr4.7 mm Vp3.8 mm CM7.5 mm 84% Nicolaides Head / Face / Neck Cephalic index0.71 <1% Nicolaides Extremities / Bony Struc FL / BPD0.78 FL / HC0.20 FL / AC0.23 Other Structures ANY564 bpm General Evaluation Cardiac activity present. FHR [...] normal Heart / Thorax 3-vessel view:Appears normal 6-rtybmm-javvyop view:Appears normal Stomach:Appears normal Kidneys:Appears normal Bladder:Appears [...] office in 4wks for growth. Coding ======= Description:[id number] Follow Up Vegetables Cook: RT Annetta Hartmann , [facility] Physician: Jo Chappell MD Electronically signed by: Jo Chappell MD at: 16:54 us Kt Fan DO [facility] US ORDERABLES Final Res ult * Protein / Creatinine Ratio, Urine - Urine, Clean Catch (08/19/2024 3:02 PM EDT) Protein/Creati nine Ratio, Urine 126.1 0.0 - 200.0 mg/G Crea 08/20/2024 12:47 AM EDT [facility] Creatinine, Urine 148.3 mg/dL 08/20/2024 12:47 AM EDT [facility] Total Protein, Urine 18.7 mg/dL 08/20/2024 12:47 AM EDT [facility] Urine Urine specimen obtained by clean catch procedure / Unknown Collection / Unknown 08/19/2024 3:02 PM EDT 08/19/2024 4:26 PM EDT Kt Fan DO URINE ORDERABLES Final Resu lt [facility]
[address] [place] [address], [place] [phone] * (ABNORMAL) Magnesium (08/19/2024 3:02 PM EDT) Magnesium 1.5(L) 1.6 - 2.6 mg/dL 08/19/2024 5:12 PM EDT [facility] Blood Line / Unknown 08/19/2024 3: 02 PM EDT 08/19/2024 3:10 PM EDT Kt Fan DO LAB BLOOD ORDERABLES Final Result Performing Organization Address City/[facility]/ZIP Co de Phone Number [facility]
[address] [place] [address], [place] [phone] * Urinalysis, Microscopic Only - Urine, Clean Catch (08/19/2024 3:02 PM EDT) RBC, UA 0-2 None Seen, 0-2 /HPF 08/19/2024 3:33 PM EDT [facility] WBC, UA 0-2 None Seen, 0-2 /HPF 08/19/2024 3:33 PM EDT [facility] Bacteria, UA None Seen None Seen /HPF 08/19/2024 3:33 PM EDT [facility] Squamous Epithelial Cells, UA 0-2 None Seen, 0-2 /HPF 08/19/2024 3:33 PM EDT [facility] Hyaline Casts, UA None Seen None Seen /LPF 08/19/2024 3:33 PM EDT [facility] Methodology Automated Microscopy 08/19/2024 3:33 PM EDT [facility] Urine Urine specimen obtained by clean catch procedure / Unknown Collection / Unknown 08/19/2024 3:02 PM EDT 08/19/2024 3:13 PM EDT us Kt Fan DO URINE ORDERABLES Final Resu lt [facility]
[address] [place] [address], [place] [phone] * (ABNORMAL) CBC Auto Differential (08/19/2024 3:02 PM EDT) WBC 9.19 3.40 - 10.80 10*3/mm3 08/19/2024 3:23 PM EDT [facility] RBC 3.58(L) 3.77 - 5.28 10*6/mm3 08/19/2024 3:23 PM EDT [facility] Hemoglobin 10.5(L) 12.0 - 15.9 g/dL 08/19/2024 3:23 PM EDT [facility] Hematocrit 31.4(L) 34.0 - 46.6 % 08/19/2024 3:23 PM EDT [facility] MCV 87.7 79.0 - 97.0 fL 08/19/2024 3:23 PM EDT [facility] MCH 29.3 26.6 - 33.0 pg 08/19/2024 3:23 PM EDT [facility] MCHC 33.4 31.5 - 35.7 g/dL 08/19/2024 3:23 PM EDT [facility] RDW 13.4 12.3 - 15.4 % 08/19/2024 3:23 PM EDT [facility] RDW-SD 42.4 37.0 - 54.0 fl 08/19/2024 3:23 PM EDT [facility] MPV 12.0 6.0 - 12.0 fL 08/19/2024 3:23 PM EDT [facility] Platelets 241 140 - 450 10*3/mm3 08/19/2024 3:23 PM EDT [facility] Neutrophil % 66.8 42.7 - 76.0 % 08/19/2024 3:23 PM EDT [facility] Lymphocyte % 24.4 19.6 - 45.3 % 08/19/2024 3:23 PM EDT [facility] Monocyte % 7.6 5.0 - 12.0 % 08/19/2024 3:23 PM EDT [facility] Eosinophil % 0.7 0.3 - 6.2 % 08/19/2024 3:23 PM EDT [facility] Basophil % 0.2 0.0 - 1.5 % 08/19/2024 3:23 PM EDT [facility] Immature Grans % 0.3 0.0 - 0.5 % 08/19/2024 3:23 PM EDT [facility] Neutrophils, Absolute 6.14 1.70 - 7.00 10*3/mm3 08/19/2024 3:23 PM EDT [facility] Lymphocytes, Absolute 2.24 0.70 - 3.10 10*3/mm3 08/19/2024 3:23 PM EDT [facility] Monocytes, Absolute 0.70 0.10 - 0.90 10*3/mm3 08/19/2024 3:23 PM EDT [facility] Eosinophils, Absolute 0.06 0.00 - 0.40 10*3/mm3 08/19/2024 3:23 PM EDT [facility] Basophils, Absolute 0.02 0.00 - 0.20 10*3/mm3 08/19/2024 3:23 PM EDT [facility] Immature Grans, Absolute 0.03 0.00 - 0.05 10*3/mm3 08/19/2024 3:23 PM EDT [facility] nRBC 0.0 0.0 - 0.2 /100 WBC 08/19/2024 3:23 PM EDT [facility] Blood Line / Unknown 08/19/2024 3: 02 PM EDT 08/19/2024 3:10 PM EDT Kt Fan DO LAB BLOOD ORDERABLES Final Result [facility]
[address] [place] [address], * (ABNORMAL) Urinalysis With Microscopic If Indicated (No Culture) - Urine, Clean Catch (08/19/2024 3:02 PM EDT) Color, UA Yellow Yellow, Straw 08/19/2024 3:33 PM EDT [facility] Appearance, UA Clear Clear 08/19/2024 3:33 PM EDT [facility] pH, UA >=9.0(H) 5.0 - 8.0 08/19/2024 3:33 PM EDT [facility] Specific Jackson, UA 1.018 1.005 - 1.030 08/19/2024 3:33 PM EDT [facility] Glucose, UA Negative Negative 08/19/2024 3:33 PM EDT [facility] Ketones, UA 15 mg/dL (1+)(A) Negative 08/19/2024 3:33 PM EDT [facility] Bilirubin, UA Negative Negative 08/19/2024 3:33 PM EDT [facility] Blood, UA Negative Negative 08/19/2024 3:33 PM EDT [facility] Protein, UA 30 mg/dL (1+)(A) Negative 08/19/2024 3:33 PM EDT [facility] Leuk Esterase, UA Negative Negative 08/19/2024 3:33 PM EDT [facility] Nitrite, UA Negative Negative 08/19/2024 3:33 PM EDT [facility] Urobilinogen, UA 1.0 E.U./dL 0.2 - 1.0 E.U./dL 08/19/2024 3:33 PM EDT [facility] Urine Urine specimen obtained by clean catch procedure / Unknown Collection / Unknown 08/19/2024 3:02 PM EDT 08/19/2024 3:13 PM EDT us Kt Fan DO URINE ORDERABLES Final Resu lt Performing Organization Address City/[facility]/ZIP Co de Phone Number [facility]
[address] [place] [address], [place] [phone] * Amylase (08/19/2024 3:02 PM EDT) Amylase 73 28 - 100 U/L 08/19/2024 3:36 PM EDT [facility] Blood Line / Unknown 08/19/2024 3: 02 PM EDT 08/19/2024 3:10 PM EDT us Kt Fan DO LAB BLOOD ORDERABLES Final Result Performing Organization Address [facility] Co de Phone Number [facility]
[address] [place] [address], [place] [phone] * Lipase (08/19/2024 3:02 PM EDT) Lipase 13 13 - 60 U/L 08/19/2024 3:36 PM EDT [facility] Blood Line / Unknown 08/19/2024 3: 02 PM EDT 08/19/2024 3:10 PM EDT us Kt Fan DO LAB BLOOD ORDERABLES Final Result Performing Organization Address City/[facility]/ZIP Co de Phone Number [facility]
[address] [place] [address], [place] [phone] * (ABNORMAL) Comprehensive Metabolic Panel (08/19/2024 3:02 PM EDT) Glucose 75 65 - 99 mg/dL 08/19/2024 3:38 PM EDT [facility] BUN 3.6(L) 6.0 - 20.0 mg/dL 08/19/2024 3:38 PM EDT [facility] Creatinine 0.51(L) 0.57 - 1.00 mg/dL 08/19/2024 3:38 PM EDT [facility] Sodium 137 136 - 145 mmol/L 08/19/2024 3:38 PM EDT [facility] Potassium 2.6(LL) 3.5 - 5.2 mmol/L 08/19/2024 3:38 PM T [facility] Comment:Specimen hemolyzed. Result may be falsely elevated. Chloride 99 98 - 107 mmol/L 08/19/2024 3:38 PM EDT [facility] CO2 24.2 22.0 - 29.0 mmol/L 08/19/2024 3:38 PM EDT [facility] Calcium 8.8 8.6 - 10.5 mg/dL 08/19/2024 3:38 PM EDT [facility] Total Protein 6.6 6.0 - 8.5 g/dL 08/19/2024 3:38 PM EDT [facility] Albumin 3.4(L) 3.5 - 5.2 g/dL 08/19/2024 3:38 PM EDT [facility] ALT (SGPT) 10 1 - 33 U/L 08/19/2024 3:38 PM T [facility] AST (SGOT) 22 1 - 32 U/L 08/19/2024 3:38 PM EDT [facility] Alkaline Phosphatase 64 39 - 117 U/L 08/19/2024 3:38 PM EDT [facility] Total Bilirubin 0.5 0.0 - 1.2 mg/dL 08/19/2024 3:38 PM EDT [facility] Globulin 3.2 gm/dL 08/19/2024 3:38 PM T [facility] Comment:Calculated Result A/G Ratio 1.1 g/dL 08/19/2024 3:38 PM T [facility] BUN/Creatinine Ratio 7.1 7.0 - 25.0 08/19/2024 3:38 PM EDT [facility] Anion Gap 13.8 5.0 - 15.0 mmol/L 08/19/2024 3:38 PM EDT [facility] eGFR 126.6 >60.0 mL/min/1.7 3 08/19/2024 3:38 PM EDT [facility] Blood Line / Unknown 08/19/2024 3: 02 PM EDT 08/19/2024 3:10 PM EDT Narrative [facility] - 08/19/2024 3:38 PM [...] Fan DO LAB BLOOD ORDERABLES Final Result [facility]
[address] [place] [address], * Type & Screen (08/19/2024 3:02 PM EDT) ABO Type O 08/19/2024 3:51 PM EDT [facility] RH type Positive 08/19/2024 3:51 PM EDT [facility] Antibody Screen Negative 08/19/2024 3:51 PM EDT [facility] T&S Expiration Date 08/22/2024 11:59:59 PM 08/19/2024 3:51 PM EDT [facility] Blood Line / Unknown 08/19/2024 3: 02 PM EDT 08/19/2024 3:15 PM EDT us Kt Fan DO BLOOD BANK TEST ORDERABLES Edited Result - Final [facility]
[address] [phone], documented in this encounter Visit Diagnoses Diagnosis [...] Protocol [facility] Electrolyte Replacement Protocol Algorithm to View Details [...] Protocol Open Order [facility] Electrolyte Replacement Protocol Algorithm to View Details [...] documented as of this encounter Care Teams Power Saw Operator Relationship Specialty Start Date End Date Norma Friedman APRN [address] [place] G3 RAFAELA APPIAH [id number] PCP - General Family Medicine 05/14/24 documented as of this encounter
--- OUTSIDE RECORDS SUMMARY | 2024-08-20 13:44 | XMS_ITS | Encounter Summary ---
[facility] Address [address] [place] [id number] Care Team Providers Care Cartography Teacher Name Role Phone IvyKade goldbergdev FERNÁNDEZ Primary Care Provider + [phone] Reason for Visit * Auth/Cert (Routine) Specialty Diagnoses / Procedures Referred By Contac t Referred To Contact Referral ID Status Reason Start Date Expiration Date Visits Re quested Visits Authorized 1 1 Encounter Details Date Type Department Care Team (Late st Contact Info) Description 08/20/2024 1:44 PM EDT Anesthesia Event [facility] ENDO SUITES [address] [place] [address] Akash Anguiano MD 425 [place] [address] Liborio Peralta CRNA [address] [place] [address] Anesthesia Record Procedure Summary Procedure Name Responsible [...] and heating? Not hard at all 05/28/2024 [facility] [place] of Occupat ional Health - Occupational Stress [...] 1:23 PM EDT Polly Lacey RN * [place] Suicide Severity Rating Scale (Screener/Recent Self-Report) Question Answer Date of Assessment Author 6. Suicidal Behavior (Lifetime) No 1:23 PM EDT Polly Cabrera RN documented as of this encounter OR Notes * Anesthesia Postprocedure Evaluation - Liborio Peralta CRNA - 08/20/2024 2:18 PM EDT Patient: Whitney Presley Procedure Summary Date: 08/20/24 Room / Location: [facility] ENDOSCOPY 3 / [facility] [...] location during procedure: OR DAYNE/CAA: Junior Zbigniew Jian CRNA Indications and Patient Condition Indications for [...] sounds: normal. 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 Plan discussed with C SOFTWARE DEVELOPER. CODE STATUS: documented in this encounter Plan of Treatment Upcoming Encounters Date Type Department Care Team (Late st Contact Info) Description 09/09/2024 9:30 AM EDT Routine [facility] OBGYN [address] [place] [address] Jacey Mathews, PLANT ELECTRICAL ENGINEER [address] [facility] [place] [address] [place] [address] 09/09/2024 9:30 AM EDT Ancillary Procedure [facility] OBGYN [address] [place] [address] documented as of this encounter [...] documented as of this encounter Care Teams Cartography Teacher Relationship Specialty Start Date End Date Norma Friedman APRN [address] [place] [address] [place] [id number] PCP - General Family Medicine 05/14/24 documented as of this encounter
--- OUTSIDE RECORDS SUMMARY | 2024-08-29 10:00 | XMS_ITS | Encounter Summary ---
[facility] Address [address] [place] [address] Care Team Providers Care Machinist Wood Name Role Phone IvyKade goldbergjoseseven JOLENE Primary Care Provider + [phone] Reason for Visit * Reason Comments Problem Encounter Details Date Type Department Care Team (Late st Contact Info) Description 08/29/2024 10:00 AM EDT Routine [facility] OBGYN [address] [place] [address] Staci Jain MD [address] [place] [address] GA: 26w4d Social History Tobacco Use Types Packs/Day Years Used Date Smoking Tobacco: Never Smokeless Tobacco: Never Alcohol Use Standard Drinks/Week Comments Never 0 (1 standard drink = 0.6 oz pur e alcohol) [facility] Utilities Answer Date Recorded In the past 12 months has [employer], gas, oil, or water [employer] threatened to shut off services in your [...] and heating? Not hard at all 05/28/2024 [facility] [place] [facility] - Occupational Stress Questionnaire [...] GED or equivalent No 05/28/2024 Preferred Language Bermudian 05/28/2024 PHQ-2 Answer Date Recorded Patient Health [...] Description 09/09/2024 9:30 AM EDT Routine [facility] [place] [address] Jacey Mathews, CIRCUS TRAIN SUPERVISOR [address] [facility] [address] [place] [address] 09/09/2024 9:30 AM EDT Ancillary Procedure [facility] [place] [address] Scheduled Orders Name Type Priority Associated Diagnoses [...] - 08/30/2024 6:09 AM EDT Performed at: [address] [place], [place] [address]aut[place], [place] [id number] Director Global Strategic Publisher Sales: Kevin Harman MD, Phone: [phone] Patient Fasting: N Staci Jain MD LAB BLOOD ORDERABLES Final Result [facility] (AMBULATORY) [address] [place] [address], [facility] [address] [place] [address], * (ABNORMAL) Comprehensive Metabolic Panel (08/29/2024 11:05 AM EDT) [facility] Glucose 72 65 - 99 mg/dL [...] 08/30/2024 6:09 AM EDT Performed at: [address] [id number] Director Global Strategic Publisher Sales: Kevin Harman MD, Phone: [phone] Patient Fasting: N us Staci Jain MD LAB BLOOD ORDERABLES Final Result Performing Organization Address City/[facility]/ZIP Co de Phone Number [facility] (AMBULATORY) [address] [place] [address], [place] [phone] [facility] [address] [place] [address], [place] [phone] * (ABNORMAL) POC Urinalysis Dipstick (08/29/2024 10:13 AM EDT) Glucose, UA Negative Negative mg/dL [facility] Protein, POC Trace(A) Negative mg/dL [facility] Urine 08/29/2024 10:1 3 AM EDT us Staci Jain MD POINT OF CARE TEST OR DERABLES Final Result [facility]
[address] [place] [address], [place] [phone] documented in this encounter Visit Diagnoses Diagnosis [...] documented as of this encounter Care Teams Machinist Wood Relationship Specialty Start Date End Date Norma Friedman APRN [address] [place] [place] [address] PCP - General Family Medicine 05/14/24 documented as of this encounter
--- OUTSIDE RECORDS SUMMARY | 2024-09-01 20:49 | XMS_ITS | Encounter Summary ---
Author Organization Healthcare Address [address] [place] [id number] Care Team Providers Care Mechanical Engineering Officer Name Role Phone Unavailable Primary Care Provider Unavailabl e Reason for Referral * Consultation (Routine) - Authorized Specialty Diagnoses / Procedures Referred By Contac t Referred To Contact Nephrology Diagnoses History of proteinuria syndrome care, subsequent , second trimester Staci Jain MD [address] [address] Phone: tel: fax: [facility] Nephrology, Bone & Mineral Metabolism [address], [address] [place] [address] Phone: tel: fax: Referral ID Status Reason Start Date Expiration Date Visits Requested Visits Authorized [id number] Authorized Specialty Services Required 07/22/2024 01/21/2026 1 1 Encounter Details Date Type Department Care Team (Late st Contact Info) Description 07/22/2024 [facility] [address] [place] [address] Staci Jain MD [address] [place] [address] History of proteinuria syndrome (Primary Dx); care, subsequent , second trimester Social History Tobacco Use Types Packs/Day Years Used Date Smoking Tobacco: Never Alcohol Use Standard Drinks/Week Comments No 0 (1 standard drink = 0.6 oz pur e alcohol) Comments Unknown Sex and Gender Information Value Date Recorded Sex Assigned at Not on file Legal Sex Female 8:43 PM EDT Gender Identity Not on file Sexual Orientation Not on file documented as of this encounter Plan of Treatment Scheduled Referrals Name Type Priority Associated Diagnoses Orde r Schedule Ambulatory referral to Nephrology Outpatient Referral Routine History of proteinuria syndrome care, subsequent , second trimester Expected: 07/22/2024 (Approximate), Expires: 01/23/2026 documented as of this encounter Visit Diagnoses Diagnosis History of proteinuria syndrome- Primary care, subsequent , second trimester documented in this encounter
--- OUTSIDE RECORDS SUMMARY | 2024-09-01 20:49 | XMS_ITS | Clinical Summary ---
Author Organization Healthcare Address [address] [place] [address] Care Team Providers Care Literary Agent Name Role Phone Unavailable Primary Care Provider Unavailabl e Encounters Date Type Department Care Team Description 07/22/2024 [facility] [address] [place] [address] Staci Jain MD History of proteinuria syndrome (Primary Dx); care, subsequent , second trimester 07/22/2024 [facility] [address] [place] [address] Sandy Cardenas MD from Last 3 Months Immunizations Immunization Administration Dates Next Due TD (adult), 2 Lf tetanus tox oid, preservative free, adsorbed 06/03/2009 Family History Medical History Relation Name Comments Conversions - Other Father first de gree relative with congenital heart disease Diabetes Father Hyperlipidemia Father Hypertension Father Obesity Father Thyroid disease Father Diabetes Mother Hyperlipidemia Mother Hypertension Mother Obesity Mother Thyroid disease Mother Hypertension Other 1 Obesity Other 2 Hyperlipidemia Other 3 Conversions - Other Other 4 Known he alth problems: none Diabetes Paternal Grandmother Obesity Sister 1 Thyroid disease Sister 2 Relation Name Status Comments Father Mother Other 1 Other 2 Other 3 Other 4 Paternal Grandmother Sister 1 Sister 2 Social History Tobacco Use Types Packs/Day Years Used Date Smoking Tobacco: Never Alcohol Use Standard Drinks/Week Comments No 0 (1 standard drink = 0.6 oz pur e alcohol) Comments Unknown Sex and Gender Information Value Date Recorded Sex Assigned at Not on file Legal Sex Female 8:43 PM EDT Gender Identity Not on file Sexual Orientation Not on file Last Filed Vital Signs Vital Sign Reading Time Taken Comments Blood Pressure 117/54 03/21/2019 9:57 AM EST Pulse 86 03/21/2019 9:57 AM EST Temperature 36.8 C (98.3 F) 02/26/2019 8:46 AM EST Respiratory Rate - - Oxygen Saturation - - Inhaled Oxygen Concentration - - Weight 70.1 kg (154 lb 8.7 oz) 03/21/2019 9:57 A M EST Height 162.6 cm (5' 4 ) 03/21/2019 9:57 AM EST Body Mass Index 26.53 03/21/2019 9:57 AM EST Plan of Treatment Health Maintenance Due Date Last Done Comments [facility]-Depression Screening 1991 [facility]-Infant/Child/Adol SDOH Screenings 1991 [facility]-Varicella Vaccines (1 of 2 - 13+ 2-dose series) 2004 [facility]- SDOH Screenings 2009 [facility]-Adult SDOH Screenings 2009 [facility]-Hepatitis B Vaccines (1 of 3 - 19+ 3-dose series) 2010 [facility]-Pap Smear 2012 [facility]-Cervical Cancer Screening 2021 [facility]-HPV/Cotest 2021 [id number] Vaccine (2 season) 2023 05/04/2022 [facility]-Influenza Vaccine (#1) 2024 03/30/2016, [facility]-DTaP,Tdap,and Td Vaccines (7 - Td or Tdap) 06/01/2032 06/01/2022, 10/03/2020, 01/15/2018, Additional history exists [facility]-Zoster Vaccines (1 of 2) 2041 HPV Vaccines Completed 03/29/2017, 07/08, 06/23/2016 [facility]-Hepatitis A Vaccines Aged Out 01/15/2018 No longer eligible based on patient's age to complete this topic [facility]-HIV Screening Completed 01/22/2019 [facility]-Hepatitis C Screening Completed 01/22/2019 [facility]-HIB Vaccines Aged Out No longer e ligible based on patient's age to complete this topic [facility]-IPV Vaccines Aged Out No longer e ligible based on patient's age to complete this topic [facility]-Pneumococcal Vaccine: Pediatrics (0 to 5 Years) and At-Risk Patients (6 to 49 Years) Aged Out No longer eligible based on patient's age to complete this topic [facility]-Rotavirus Vaccines Aged Out No lo nger eligible based on patient's age to complete this topic Procedures Procedure Name Priority Date/Time Associated Diagnosis Comments HEPATITIS C ANTIBODY W/REFLEX TO HCV QUANT PCR Routine 01/22/2019 9:57 AM EST HIV 1/2 ANTIBODY/ANTIGEN SCREEN WITH REFLEX TO HIV I/II DIFFERENTIATION Routine 01/22/2019 9:57 AM EST from Last 3 Months or Most Recently Relevant to Health Maintenance Results * HIV 1 & 2 Antibody/Antigen Screen (01/22/2019 9:57 AM EST) HIV 1 Result NONREACTIVE Screening for HIV 1 and 2 antibodies is NONREACTIVE. No confirmatory testing is required. SUNQUEST 01/22/2019 9:57 AM EST 01/22/2019 12:12 PM EST Pradip Damico APRN, CNM LAB BLOOD ORDERABLES Fin al Result Performing Organization Address City/[facility] de Phone Number SUNQUEST * Hepatitis C Antibody (01/22/2019 9:57 AM EST) Hepatitis C Antibody NEGATIVE Reference Range: Negative [facility]QUEST 01/22/2019 9:57 AM EST 01/22/2019 12:12 PM EST Pradip Damico APRN, CNM LAB BLOOD ORDERABLES Fin al Result Performing Organization Address City/[facility] de Phone Number SUNQUEST from Last 3 Months or Most Recently Relevant to Health Maintenance Insurance [employer] [facility] MEDICAID
--- OUTSIDE RECORDS SUMMARY | 2024-09-01 20:49 | XMS_ITS | Clinical Summary ---
Author Organization [facility] [place] [address] Phone Care Team Providers Care Hairspring Setter Name Role Phone Unavailable Primary Care Provider Unavailabl e Allergies Active Allergy Reactions Criticality Noted Date Comments Bismuth Subsalicylate Other (See Comments) 12/08 na Medications busPIRone (BUSPAR) 5 mg Oral Tablet Take 5 mg by mouth 2 times daily. Active LORazepam (ATIVAN) 0.5 mg Oral Tablet Take 0.5 mg by mouth every 6 hours as needed for Anxiety. Active meloxicam (MOBIC) 15 mg Oral TabletIndication s:Lumbar spine pain,Myofascial pain Take 1 Tablet by mouth daily as needed for Pain. 30 Tablet 01/04/2021 Active Active Problems Patient Care Coordination No te Formatting of this note migh t be different from the original. [facility] - Edwardo Ojeda MD Interventional Pain Protocol: NS Appt 03/29/22 Letter Sent Maxime report completed (EVERY 3 MONTHS) ( 03/23/22) Pharmacy: [facility] [address] [place] [phone] [address] [facility] south - [phone] No known active problems Social History Tobacco Use Types Packs/Day Years Used Date Smoking Tobacco: Never Smokeless Tobacco: Never Comments Unknown Sex and Gender Information Value Date Recorded Sex Assigned at Not on file Legal Sex Female 4:58 AM EDT Gender Identity Not on file Sexual Orientation Not on file Obstetrics History Last Filed Vital Signs Vital Sign Reading Time Taken Comments Blood Pressure 116/80 01/04/2021 9:00 AM EST Pulse 68 01/04/2021 9:00 AM EST Temperature - - Respiratory Rate - - Oxygen Saturation 97% 01/04/2021 9:00 AM EST Inhaled Oxygen Concentration - - Weight 73.5 kg (162 lb) 01/04/2021 9:00 AM EST Height - - Body Mass Index - - Plan of Treatment Health Maintenance Due Date Last Done Comments Annual Wellness Exam 1994 DTaP/TDaP/Td (2 - Tdap) 2010 07/23/1996 Cervical Cancer Screening 2012 Pap Smear 2012 HPV/Pap Cotest 2021 COVID-19 Vaccine (2023-2 5 season) 2023 Influenza Vaccine (#1) 2024 03/28/2012 Hepatitis B Vaccine Completed 06/26/2002, 01/15/2002, 11/30/2001 Meningococcal B Vaccine Aged Out No l onger eligible based on patient's age to complete this topic Pneumococcal Vaccine 0-49 Aged Out No longer eligible based on patient's age to complete this topic Insurance [facility] [id number]
--- OUTSIDE RECORDS SUMMARY | 2024-09-01 20:50 | XMS_ITS | Referral Summary ---
Author Organization [employer] ([place], [place], [place], [place]) Address [address] [place] [address] Care Team Providers Care Pipe Tester Name Role Phone Unavailable Primary Care Provider Unavailabl e Social History Tobacco Use Types Packs/Day Years Used Date Smoking Tobacco: Never Assessed Comments Unknown Sex and Gender Information Value Date Recorded Sex Assigned at Not on file Legal Sex Female 5:51 PM CDT Gender Identity Not on file Sexual Orientation Not on file Plan of Treatment Not on file
--- OUTSIDE RECORDS SUMMARY | 2024-09-01 20:50 | XMS_ITS | Encounter Summary ---
Author Organization [facility] Address [address] [place] [id number] Care Team Providers Care Screen Printing Paster Name Role Phone Elder Norma FERNÁNDEZ Primary Care Provider + [phone] Encounter Details Date Type Department Care Team (Late st Contact Info) Description 07/07/2024 Results Follow-Up [facility] O[facility] [address] [place] [address] [place] [id number] Kelly Delgado APRN [address] [facility] [address] [place] [address] Social History Tobacco Use Types Packs/Day Years Used Date Smoking Tobacco: Never Smokeless Tobacco: Never Alcohol Use Standard Drinks/Week Comments Never 0 (1 standard drink = 0.6 oz pur e alcohol) [facility] Utilities Answer Date Recorded In the past 12 months has [facility], gas, oil, or water [email or web address] threatened to shut off services in your [...] heating? Not hard at all 05/28/2024 [facility] of Occupat ional Health - Occupational Stress [...] [facility] OBGYN [address] [place] [address] Jacey Mathews, HEAVY MOBILE EQUIPMENT REPAIRER [address] [facility] [address] [place] [address] 09/09/2024 9:30 AM EDT Ancillary Procedure [facility] OBGYN [address] [place] [address] documented as of this encounter Visit Diagnoses Not on filedocumented in this encounter Additional Health Concerns Assessment Noted Time PHQ-2 Depression Total Score: 2 05/28/19 4:39 PM EDT documented as of this encounter Care Teams Screen Printing Paster Relationship Specialty Start Date End Date Norma Friedman APRN [address] [place] [address] [place] [address] PCP - General Family Medicine 05/14/24 documented as of this encounter
--- OUTSIDE RECORDS SUMMARY | 2024-09-01 20:50 | XMS_ITS ---
Author Organization [facility] Address [address] [place] [address] Care Team Providers Care Sap Security Consultant Name Role Phone Unavailable Primary Care Provider Unavailabl e Transplant Episode Kidney Potential Donor [facility] ([place], [place]) - [facility] Referred on 05/03/2022 Marked as Deferred on 05/04/2022 Reason: Other Kidney CoordinatorNadine Augustin R.N. Phone: N/A Fax: N/A Email: N/A Care Team Name Role Phone Fax Email Nadine Augustin R.N. Kidney Coordinator N/A N/A N/A Events Pre-Donation Referred: 05/03/2022
--- OUTSIDE RECORDS SUMMARY | 2024-09-01 20:50 | XMS_ITS | Encounter Summary ---
[facility] Organization [facility] Address [address] [place] [id number] Care Team Providers Care Atmospheric Sciences Professor Name Role Phone IvyKade goldbergjoseseven JOLENE Primary Care Provider + [phone] Encounter Details Date Type Department Care Team (Late st Contact Info) Description 07/25/2024 Patient Outreach [facility] [address] [place] [phone] Christy Zabala, RN Social History Tobacco Use Types Packs/Day Years Used Date Smoking Tobacco: Never Smokeless Tobacco: Never Alcohol Use Standard Drinks/Week Comments Never 0 (1 standard drink = 0.6 oz pur e alcohol) [facility] Utilities Answer Date Recorded In the past 12 months has e electric, gas, oil, or water company [...] hard at all 05/28/2024 [facility] [place] of Occupat ional Health - Occupational Stress [...] GED or equivalent No 05/28/2024 Preferred Language Maltese 05/28/2024 PHQ-2 Answer Date Recorded Patient Health Questionnaire-9 Score 2 05/28/2024 Estimated Date of Delivery Comme nts Yes 12/01/2024 Based on last me nstrual period of 02/25/2024 Sex and Gender Information Value Date Recorded Sex Assigned at Female 07/04/2024 10:40 AM EDT Legal Sex Female 10:26 AM EDT Gender Identity Not on file Sexual Orientation Not on file documented as of this encounter Miscellaneous Notes * Outreach Note - Christy Zabala RN - 07/25/2024 10:55 AM EDTSummary: Motherhood Connection Motherhood Connection Check-In Current Estimated Gestational Age: 21w4d Questions/Answers Flowsheet Row Responses Best Method for Contacting Cell Demographics Reviewed No Currently Employed Yes Able to keep appointments as scheduled Yes Gender(s) and Name(s) Emi Baby Active/Feeling Movemen Yes How are you presently feeling? I feel good Are you having any of the following symptoms? Nausea/Vomiting Questions regarding visits or tests to be ordered? No Resource/Environmental Concerns None Do you have any questions related to your care experience, your , plans for delivery, any concerns, etc? No Feeling well and reports good movement. Denies any concerning symptoms but discussed what to watch out for. Discussed that she still has time for childbirth education if she is interested. She has begun gathering items she will need for baby. Contact information provided. Encouraged to call with questions, concerns, or for support. Will plan f/u around 28 weeks for updated needs assessment and wellness check. Christy Wilson facility worker Nurse Navigator 07/25/2024, 10:59 EDT documented in this encounter Plan of Treatment Upcoming Encounters Date Type Department Care Team (Late st Contact Info) Description 09/09/2024 9:30 AM EDT Routine [facility] OBGYN [address] [place] [phone] Jacey Mathews, AGENT BROKER [address] [place] [address] [place] [address] 09/09/2024 9:30 AM EDT Ancillary Procedure [facility] [address] [place] [address] documented as of this encounter Visit Diagnoses Not on filedocumented in this encounter Additional Health Concerns Assessment Noted Time PHQ-2 Depression Total Score: 2 05/28/19 4:39 PM EDT documented as of this encounter Care Teams Atmospheric Sciences Professor Relationship Specialty Start Date End Date Norma Friedman APRN [address] [place] [address] [place] [address] [place] [address] PCP - General Family Medicine 05/14/24 documented as of this encounter
--- OUTSIDE RECORDS SUMMARY | 2024-09-01 20:50 | XMS_ITS | Clinical Summary ---
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 [facility]/ZIP Co de Phone Number [facility]
[address] [place] [address], [place] [phone] * (ABNORMAL) Magnesium (08/19/2024 3:02 PM EDT) Magnesium 1.5(L) 1.6 - 2.6 mg/dL 08/19/2024 5:12 PM EDT [facility] Blood Line / Unknown 08/19/2024 3: 02 PM EDT 08/19/2024 3:10 PM EDT us Kt Fan DO LAB BLOOD ORDERABLES Final Result Performing Organization Address [facility]/ZIP Co de Phone Number [facility]
[address] [place] [address], [place] [phone] * Lipase (08/19/2024 3:02 PM EDT) Lipase 13 13 - 60 U/L 08/19/2024 3:36 PM EDT [facility] Blood Line / Unknown 08/19/2024 3: 02 PM EDT 08/19/2024 3:10 PM EDT us Kt Fan DO LAB BLOOD ORDERABLES Final Result Performing Organization Address City/[facility]/ZIP Co de Phone Number [facility]
[address] [place] [address], [place] [phone] * Amylase (08/19/2024 3:02 PM EDT) Amylase 73 28 - 100 U/L 08/19/2024 3:36 PM EDT [facility] Blood Line / Unknown 08/19/2024 3: 02 PM EDT 08/19/2024 3:10 PM EDT us Kt Fan DO LAB BLOOD ORDERABLES Final Result [facility]
[address] [place] [address], * US Ob 14 + Weeks Single or First Gestation (07/05/2024 10:17 AM EDT) Anatomical Region Laterality Modality Body Ultrasound 07/05/2024 10:2 8 AM EDT Narrative 07/09/2024 7:02 PM EDT PAT NAME: CAROLE GIRARD MED REC#: [id number] DA: 1990 PAT GEND: F PAT TYPE: O EXAM TRAVIS: [id number] REF PHYS URIEL RUSS Top Dyeing Machine Tender Comments Still need heart views and PCI [...] EFW (oz) 9 oz EFW by: Hadlock ([id number]) Extended Tourist Information Officer 6.4 mm CM 3.3 mm 11% Nicolaides [...] Heart / Thorax 3-vessel view: not visualized 9-xbxase-hzzsxoc view: not visualized Diaphragm: Appears normal Diaphragm: [...] subsequent visit to complete the anatomic screening. Top Dyeing Machine Tender: Soo Harding RDMS Physician: Uriel Russ II, MD, FACOG Electronically signed by: Uriel Russ II, MD, FACOG at: 19:02 Procedure Note Uriel Russ MD - 07/09/2024 PAT NAME: CAROLE GIRARD MED REC#: [id number] DA: [id number] PAT GEND: F PAT TYPE: O EXAM TRAVIS: [id number] REF PHYS URIEL RUSS Top Dyeing Machine Tender Comments Still need heart views and PCI N/L, Kidneys, Legs suboptimal Indication ======== anatomy survey Comparison Studies There are no relevant prior studies to which this study is beingcompared Method ======= Voluson E6, Transabdominal ultrasound examination. View: Suboptimal view:limited by early gestational age ========= Love . Number of fetuses: 1 Dating ====== Method of dating:based on stated DUSTY GA by prior [id number] w + 5 d DUSTY by prior assessment:12/01/2024 Ultrasound examination on:07/05/2024 GA by U/S based upon:AC, BPD, Femur, HC GA by U/S18 w + 3 d DUSTY by U/S:12/03/2024 Previous dating:based on stated DUSTY, selected on 06/25/2024 Agreed DUSTY of previous datin12/01/2024 Assigned:based on stated DUSTY, selected on 07/05/2024 Assigned GA18 w + 5 d Assigned DUSTY:12/01/2024 [id number] d General Evaluation Cardiac activity present. FHR [...] 67% Hadlock HC / AC1.13 20% Hadlock LMB503 g 18w 6d 56% Hadlock EFW (lb)0 lb EFW (oz)9 oz EFW by:Hadlock ([id number]) Extended Vp6.4 mm CM3.3 mm 11% Nicolaides Extremities / Bony Struc FL / BPD0.80 >99% Hadlock FL / HC0.20 98% Hadlock FL / AC0.23 89% Hadlock Other Structures HRY119 bpm Anatomy Cranium:Appears normal Lateral ventricles:Appears normal Choroid plexus:Appears normal Midline falx:Appears normal Cavum septi pellucidi:Appears normal Cerebellum:Appears normal Cisterna magna:Appears normal Lips:suboptimal Profile:Appears normal Nose:suboptimal 4-chamber view:not visualized RVOT view:not visualized LVOT view:not visualized Heart / Thorax 3-vessel view:not visualized 8-nwdfzs-crnldjs view:not visualized Diaphragm:Appears normal Diaphragm:Intact Cord insertion:Appears [...] Structures Uterus / Cervix Uterus:Visualized Cervix:Visualized Cervical ivkaog60.6 mm Ovaries / Tubes / Adnexa Rt [...] a subsequent visit tocomplete the anatomic screening. Top Dyeing Machine Tender: Soo Harding RDMS Physician: Uriel Russ II, MD, FACOG Electronically signed by: Uriel Russ II, MD, FACOG at: 9:02 Uriel Russ MD [facility] ORDERABLES Final Result * Urine Culture - Urine, Urine, Clean [...] / Unknown 07/05/2024 07/05/2024 Comment:Urine Release to mayito Hooper [facility] ([facility]) - 07/07/2024 3:35 AM EDT Performed at: [address] [place] [address] [id number] Scale Tank Operator: Michael Martinez PhD, Phone: [phone] us Kelly Delgado APRN MICROBIOLOGY - GENERAL ORDER FRANCO Final Result Performing Organization Address City/[facility] Co de Phone Number [facility] [address] [place] [address], [facility] [address] [place] [address], * Tryptase (06/25/2024 4:34 PM EDT) Tryptase 6.1 2.2 - 13.2 ug/L [facility] Blood 06/25/2024 4:34 PM EDT 06/25/2024 Narrative [facility] ([facility]) - 06/28/2024 9:10 AM EDT Performed at: 01 - [address] [id number] Scale Tank Operator: Fang Yu MD, Phone: [phone] Uriel Russ MD LAB BLOOD ORDERABLES Final Resu lt Performing Organization Address City/[facility]/ZIP Co de Phone Number [facility] ([facility]) [address] [place] [address], [facility] [address] [place] [address], * Vitamin D,25-Hydroxy (06/25/2024 4:34 PM EDT) 25 Hydroxy, Vitamin D 33.7 30.0 - 100.0 ng/mL [facility] Comment: Vitamin D deficiency has been defined by the [place] of Medicine and an Endocrine Society practice guideline as a level of serum 25-OH vitamin D less than 20 ng/mL (1,2). The Endocrine Society went on to further define vitamin D insufficiency as a level between 21 and 29 ng/mL (2). 1. IOM ([place] of Medicine). 2010. Dietary reference intakes for calcium and D. [place]: The National Academies Press. 2. Halle MF, [place], Wade MITCHELL, et al. Evaluation, treatment, and prevention of vitamin D deficiency: an Endocrine Society clinical practice guideline. JCEM. 2011 Aug; 96(7):0561-30. Blood 06/25/2024 4:34 PM EDT 06/25/2024 Narrative [facility]) - 06/26/2024 7:37 AM EDT Performed at: [address] [place] [id number] Scale Tank Operator: Michael Martinez PhD, Phone: [phone] us Uriel Russ MD LAB BLOOD ORDERABLES Final Resu lt Performing Organization Address [facility] Co de Phone Number [facility] ([facility]UL[facility]) [address] [place] [address], [place] [phone] [facility] [address] [place] [address], [place] [phone] * TSH (06/25/2024 4:34 PM EDT) TSH 0.593 0.450 - 4.500 uIU/mL [facility] Blood 06/25/2024 4:34 PM EDT 06/25/2024 Narrative [facility]) - 06/26/2024 7:37 AM EDT Performed at: [address] [place] [address] [id number] Scale Tank Operator: Michael Martinez PhD, Phone: [phone] us Uriel Russ MD LAB BLOOD ORDERABLES Final Resu lt Performing Organization Address City/[facility]/ZIP Co de Phone Number [facility] ([facility]) [address] [place] [address], [place] [phone] [facility] [address] [place] [address], [place] [phone] * T4, Free (06/25/2024 4:34 PM EDT) Free T4 1.09 0.82 - 1.77 ng/dL [facility] Blood 06/25/2024 4:34 PM EDT 06/25/2024 Narrative [facility] ([facility]) - 06/26/2024 7:37 AM EDT Performed at: - [address] [id number] Scale Tank Operator: Michael Martinez PhD, Phone: [phone] Uriel Russ MD LAB BLOOD ORDERABLES Final Resu lt Performing Organization Address [facility] Co de Phone Number [facility] [address] [place] [address], [facility] [address] [place] [address], [place] [phone] * (ABNORMAL) Hemoglobin A1c (06/25/2024 4:34 PM EDT) Pathologist [facility] Hemoglobin A1C 4.7(L) 4.8 - 5.6 % [facility] Comment: Prediabetes: 5.7 - 6.4 Diabetes: >6.4 Glycemic control for adults with diabetes: <7.0 Blood 06/25/2024 4:34 PM EDT 06/25/2024 Narrative [facility]) - 06/26/2024 4:35 AM EDT Performed at: [address] [id number] Scale Tank Operator: Michael Martinez PhD, Phone: [phone] Uriel Russ MD LAB BLOOD ORDERABLES Final Resu lt Performing Organization Address [facility] Co de Phone Number [facility] [address] [place] [address], [place] [phone] [facility] [address] [place] [address], [place] [phone] * (ABNORMAL) Lipid Panel (06/25/2024 4:34 PM EDT) Total Cholesterol 203(H) 100 - 199 mg/dL [facility] Triglycerides 125 0 - 149 mg/dL [facility] HDL Cholesterol 52 >39 mg/dL [facility] VLDL Cholesterol Rom 22 5 - 40 mg/dL [facility] LDL Chol Calc ([facility]) 129(H) 0 - 99 mg/dL [facility] Blood 06/25/2024 4:34 PM EDT 06/25/2024 Narrative [facility] ([facility]) - 06/26/2024 6:36 AM EDT Performed at: 01 - [facility] [address] [facility] [place], [place] [id number] Scale Tank Operator: Michael Martinez PhD, Phone: [phone] us Uriel Russ MD LAB BLOOD ORDERABLES Final Resu lt [facility] ([facility]) [address] [place] [address], [place] [phone] [facility] [address] [place] [address], * US Ob Limited 1 + Fetuses (06/25/2024 3:10 PM EDT) Anatomical Region Laterality Modality Body Ultrasound 06/25/2024 3:54 PM EDT Narrative 06/26/2024 1:34 PM EDT PAT NAME: CAROLE GIRARD MED REC#: [id number] DA: 1990 PAT GEND: F PAT TYPE: O EXAM TRAVIS: [id number] REF PHYS URIEL RUSS Indication ======== Heart Tones Comparison Studies The findings of this study are compared to the prior ultrasound study dated 05/27/2024 Method ======= Transabdominal ultrasound examination. View: Suboptimal view: limited by position ========= Love . Number of fetuses: 1 Dating ====== Method of dating: based on stated DUSTY GA by prior assessment 17 w + 2 d DUSTY by prior assessment: 12/01/2024 Previous dating: based on stated DUSTY, selected on 05/27/2024 Agreed DUSTY of previous datin12/01/2024 Assigned: based on stated DUSTY, selected on 06/25/2024 Assigned GA 17 w + 2 d Assigned DUSTY: 12/01/2024 length 280 d General Evaluation Cardiac activity present. FHR 150 bpm. movements visualized. Presentation variable. Placenta Placental site: anterior. Amniotic fluid Amount of AF: normal. MVP 2.7 cm. Maternal Structures Uterus / Cervix Cervical length 33.1 mm Impression heart tones 150. 17 weeks 2 days. EDC 12/01/2024. Single fetus. Cervical length 33 mm. Recommendation Follow-up scan as clinically indicated for the condition being monitored. Top Dyeing Machine Tender: RT Annetta Bruno, [facility] Physician: Uriel Russ II, MD, FACOG Electronically signed by: Uriel Russ II, MD, FACOG at: 13:34 Procedure Note Uriel Russ MD - 06/26/2024 PAT NAME: CAROLE GIRARD MED REC#: [id number] DA: 1990 PAT GEND: F PAT TYPE: O EXAM TRAVIS: [id number] REF PHYS URIEL RUSS Indication ======== Heart Tones Comparison Studies The findings of this study are compared to the prior ultrasound studydated 05/27/2024 Method ======= Transabdominal ultrasound examination. View: Suboptimal view: limited byfetal position ========= Love . Number of fetuses: 1 Dating ====== Method of dating:based on stated DUSTY GA by prior [id number] w + 2 d DUSTY by prior assessment:12/01/2024 Previous dating:based on stated DUSTY, selected on 05/27/2024 Agreed DUSTY of previous datin12/01/2024 Assigned:based on stated DUSTY, selected on 06/25/2024 Assigned GA17 w + 2 d Assigned DUSTY:12/01/2024 d General Evaluation Cardiac activity present. FHR 150 bpm. movements visualized. Presentation variable. Placenta Placental site: anterior. Amniotic fluid Amount of AF: normal. MVP 2.7 cm. Maternal Structures Uterus / Cervix Cervical .1 mm Impression heart tones 150. 17 weeks 2 days. EDC 12/01/2024. Single fetus.Cervical length 33 mm. Recommendation Follow-up scan as clinically indicated for the condition beingmonitored. Top Dyeing Machine Tender: RT Annetta Bruno, [facility] Physician: Uriel Russ II, MD, FACOG Electronically signed by: Uriel Russ II, MD, FACOG at: :34 Uriel Russ MD [facility] [place] ORDERABLES Final Result * Hepatitis C Antibody (04/12/2024) Hep C Virus Ab negative Blood Historical Provider LAB BLOOD ORDERABLES Lena l Result from Last 3 Months or Most Recently Relevant to Health Maintenance Insurance [employer] [facility] Care Teams Oncology Pharmacist Relationship Specialty Start Date End Date Norma Friedman APRN [address] [place] [address] RAFAELA APPIAH [address] PCP - General Family Medicine 05/14/24
--- OUTSIDE RECORDS SUMMARY | 2024-09-01 20:50 | XMS_ITS | Encounter Summary ---
Author Organization [employer] ([place], [place], [place], [place]) Address [address] [place] [address] Care Team Providers Care Newspaper Writer Name Role Phone Unavailable Primary Care Provider Unavailabl e Encounter Details Date Type Department Care Team (Late st Contact Info) Description 07/17/2019 Transcribed Document [facility] Family Medicine [address] [place] [address] ProviderEleno MD [address] [place], [place] [address] Social History Tobacco Use Types Packs/Day Years Used Date Smoking Tobacco: Never Assessed Comments Unknown Sex and Gender Information Value Date Recorded Sex Assigned at Not on file Legal Sex Female 5:51 PM CDT Gender Identity Not on file Sexual Orientation Not on file documented as of this encounter Miscellaneous Notes * Cerner Conversion Note - Historical ProviderMD - 07/17/2019 7:17 PM CDT ED Discharge Entered On: 07/17/2019 23:05 EDT Performed On: 07/17/2019 19:17 EDT by KARLENE MCKINLEY superior court clerk Process Patient Disposition : AMA/Elope/LWBS KARLENE MCKINLEY RN - 07/17/2019 23:04 EDT LWBS/Elopement/AMA Patient Left Prior To Medical Screening : Unseen Patient Elopement : Yes Provider Notified : No KARLENE MCKINLEY RN - 07/17/2019 23:04 EDT documented in this encounter Plan of Treatment Not on file documented as of this encounter Visit Diagnoses Not on filedocumented in this encounter
--- OUTSIDE RECORDS SUMMARY | 2024-09-01 20:50 | XMS_ITS | Encounter Summary ---
[facility] Address [address] [place] [address] Care Team Providers Care Unit Tender Name Role Phone Norma Friedman APRN Primary Care Provider + [phone] Encounter Details Date Type Department Care Team (Latest Contact Info) Description 08/29/2024 Travel Social History Tobacco Use Types Packs/Day Years Used Date Smoking Tobacco: Never Smokeless Tobacco: Never Alcohol Use Standard Drinks/Week Comments Never 0 (1 standard drink = 0.6 oz pur e alcohol) [facility] Utilities Answer Date Recorded In the past 12 months has [employer], gas, oil, or water company threatened [...] and heating? Not hard at all 05/28/2024 [facility] [place] of Occupat ional Health - Occupational Stress [...] GED or equivalent No 05/28/2024 Preferred Language Sammarinese 05/28/2024 PHQ-2 Answer Date Recorded Patient Health [...] Info) Description 09/09/2024 9:30 AM EDT Routine [facility] OBGYN [address] [place] [address] Jacey Mathews, LOAN SUPERVISOR [address] [facility] [place] [address] [place] [address] 09/09/2024 9:30 AM EDT Ancillary Procedure [facility] O[facility] [address] [place] [address] documented as of this encounter Visit Diagnoses Not on filedocumented in this encounter Additional Health Concerns Assessment Noted Time PHQ-2 Depression Total Score: 2 05/28/19 25 4:39 PM EDT documented as of this encounter Care Teams Unit Tender Relationship Specialty Start Date End Date Norma Friedman APRN [address] [place] [address] [place] [address] PCP - General Family Medicine 05/14/24 documented as of this encounter
--- OUTSIDE RECORDS SUMMARY | 2024-09-01 20:50 | XMS_ITS ---
Author Organization [facility] Address [address] [place] [address] Care Team Providers Care Us Customs And Border Officer Name Role Phone Norma Friedman APRN Primary Care Provider Motherhood Connection Status:Engaged (Active) Start date:05/23/2024 Enrollment date:05/23/2024 Case Team Name Relationship Phone Bindu Castellon RN Nurse Navigator Christy Zabala RN(Responsible Staff) Nurse Navig ator Continued Care and Services Coordination
--- OUTSIDE RECORDS SUMMARY | 2024-09-01 20:50 | XMS_ITS | Encounter Summary ---
[facility] Address [address] [place] [id number] Care Team Providers Care International Editorial Producer Name Role Phone Elder Norma FERNÁNDEZ Primary Care Provider + [phone] Reason for Visit * Reason Onset Date Comments TRANSFER OF CARE REQ 07/04/2024 Encounter Details Date Type Department Care Team (Late st Contact Info) Description 07/04/2024 Telephone [facility] OBGYN [address] [phone] Koby Roberts MD [address] [facility] [address] [place] [address] TRANSFER OF CARE REQ Social History Tobacco Use Types Packs/Day Years Used Date Smoking Tobacco: Never Smokeless Tobacco: Never Alcohol Use Standard Drinks/Week Comments Never 0 (1 standard drink = 0.6 oz pur e alcohol) [facility] Utilities Answer Date Recorded In the past 12 months has [employer], gas, oil, or water [employer] threatened to shut off services in your [...] and heating? Not hard at all 05/28/2024 [facility] [place] [facility] - Occupational Stress Questionnaire Answer Date [...] as of this encounter Miscellaneous Notes * Telephone Encounter - Yanna Navarrete RN - 07/04/2024 4:55 PM EDT Armando pt. 18w4d. States that she and her would feel more comfortable with a female provider. Dr. Roberts, Dr. Jain, and Clinical Geography Head Dakota Birscoe RN okay with pt switching providers. Will send a message to front edger to schedule pt 20 wk anatomy appt. * Telephone Encounter - Yanna Navarrete RN - 07/04/2024 3:32 PM EDT Armando pt. 18w4d. States that she and her would feel more comfortable with a female provider. Informed her that both providers will have to agree with the transfer of care and that we will notify her with a decision. Verbalized understanding. Message sent to management to follow up. * Telephone Encounter - Nneka Yan RegSched Rep - 07/04/2024 3:08 PM EDT Caller: Whitney Olson Female, 34 y.o., 1990 CSN: [id number] Relationship: SELF Who is your current provider: Koby Roberts MD Is your current provider offboarding? NO Who would you like your new provider to be: Staci Jain MD What are your reasons for transferring care: PT STATES BAHAI REASON PT REQ A CALL BACK TO [facility] APPT ON 07-23-24 IF ABLE TO TRANSFER CARE documented in this encounter Plan of Treatment Upcoming Encounters Date Type Department Care Team (Late st Contact Info) Description 09/09/2024 9:30 AM EDT Routine [facility] OBGYN [address] [place] [address] Jacey Mathews, WASTEWATER ENGINEER [address] [facility] [place] [address] [place] [address] 09/09/2024 9:30 AM EDT Ancillary Procedure [facility] O[facility]YN [address] [place] [address] documented as of this encounter Visit Diagnoses Not on filedocumented in this encounter Additional Health Concerns Assessment Noted Time PHQ-2 Depression Total Score: 2 05/28/19 4:39 PM EDT documented as of this encounter Care Teams International Editorial Producer Relationship Specialty Start Date End Date Norma Friedman APRN [address] [place] [address] [place] [address] PCP - General Family Medicine 05/14/24 documented as of this encounter
--- OUTSIDE RECORDS SUMMARY | 2024-09-01 20:50 | XMS_ITS | Clinical Summary ---
Author Organization [employer] ([place], [place], [place], [place]) Address [address] [place] [address] Care Team Providers Care Filler Feeder Name Role Phone Unavailable Primary Care Provider [...]
--- OUTSIDE RECORDS SUMMARY | 2024-09-01 20:50 | XMS_ITS | Clinical Summary ---
Author Organization [facility] Address [address] [place] [address] Care Team Providers Care Supervisor Fusing Room Name Role Phone Unavailable Primary Care Provider Unavailabl e Source Comments [facility] is fully rolled out with thefollowing exceptions:General Clinical Research [facility] Social History Tobacco Use Types Packs/Day Years Used Date Smoking Tobacco: Never Assessed Comments Unknown Sex and Gender Information Value Date Recorded Sex Assigned at Not on file Legal Sex Female 10:20 AM EDT Gender Identity Not on file Sexual Orientation Not on file Plan of Treatment Health Maintenance Due Date Last Done Comments MMR IMMUNIZATION (1 of 1 - S tandard series) 1992 DTAP/Tdap/Td IMMUNIZATION (1 - Tdap) 1998 VARICELLA IMMUNIZATION (1 of 2 - 13+ 2-dose series) 2004 HEPATITIS B IMMUNIZATION (1 of 3 - 19+ 3-dose series) 2010 COVID-19 Vaccine (2023-2 5 season) 2023 AMB SEASONAL FLU VACCINE (#1) 10/07/2024 HIB IMMUNIZATION Aged Out No longer e ligible based on patient's age to complete this topic HPV IMMUNIZATION Aged Out No longer e ligible based on patient's age to complete this topic IPV IMMUNIZATION Aged Out No longer e ligible based on patient's age to complete this topic MCV4 IMMUNIZATION Aged Out No longer eligible based on patient's age to complete this topic MENINGOCOCCAL B VACCINE Aged Out No l onger eligible based on patient's age to complete this topic PNEUMOCOCCAL IMMUNIZATION Aged Out No longer eligible based on patient's age to complete this topic Respiratory Syncytial Virus (RSV) <20mo Aged Out No longer eligible b ased on patient's age to complete this topic
--- OUTSIDE RECORDS SUMMARY | 2024-09-01 20:50 | XMS_ITS | Encounter Summary ---
[facility] Organization [facility] Address [address] [place] [address] Care Team Providers Care Arrow Point Attacher Name Role Phone Elder Norma FERNÁNDEZ Primary Care Provider + [phone] Encounter Details Date Type Department Care Team (Latest Contact Info) Description 07/05/2024 Travel Social History Tobacco Use Types Packs/Day Years Used Date Smoking Tobacco: Never Smokeless Tobacco: Never Alcohol Use Standard Drinks/Week Comments Never 0 (1 standard drink = 0.6 oz pur e alcohol) [facility] Utilities Answer Date Recorded In the past 12 months has [employer] electric, gas, oil, or water company threatened [...] hard at all 05/28/2024 [facility] [place] of Occupat ional Health - Occupational Stress [...] GED or equivalent No 05/28/2024 Preferred Language Finnish 05/28/2024 PHQ-2 Answer Date Recorded Patient Health [...] Info) Description 09/09/2024 9:30 AM EDT Routine [facility] OBGYN [address] [place] [address] Jacey Mathews, FABRIC COATING SUPERVISOR [address] [facility] [place] [address] [place] [address] 09/09/2024 9:30 AM EDT Ancillary Procedure [facility] OBGYN [address] [place] [address] documented as of this encounter Visit Diagnoses Not on filedocumented in this encounter Additional Health Concerns Assessment Noted Time PHQ-2 Depression Total Score: 2 05/28/19 25 4:39 PM EDT documented as of this encounter Care Teams Arrow Point Attacher Relationship Specialty Start Date End Date Norma Friedman APRN [address] [place] [address] [place] [address] PCP - General Family Medicine 05/14/24 documented as of this encounter
--- OUTSIDE RECORDS SUMMARY | 2024-09-01 20:51 | XMS_ITS | Encounter Summary ---
[facility] Address [address] [place] [address] Care Team Providers Care Desizing Machine Offbearer Name Role Phone Ivyashlyn Norma FERNÁNDEZ Primary Care Provider + [phone] Encounter Details Date Type Department Care Team (Late st Contact Info) Description 08/27/2024 Telephone [facility] OBGYN [address] [place] [address] Staci Jain MD [address] [facility] [address] [place] [address] Social History Tobacco Use Types Packs/Day Years Used Date Smoking Tobacco: Never Smokeless Tobacco: Never Alcohol Use Standard Drinks/Week Comments Never 0 (1 standard drink = 0.6 oz pur e alcohol) [facility] Utilities Answer Date Recorded In the past 12 months has [employer], [employer], oil, or water [employer] threatened to shut off services in your [...] and heating? Not hard at all 05/28/2024 [facility] [place] of Occupat ional Health - Occupational Stress [...] encounter Miscellaneous Notes * Telephone Encounter - Lyudmila Blackburn MA - 08/27/2024 3:50 PM EDT ZAIN Patient- 03/15 Patient calling with c/o mucous discharge (concerned for mucous plug), with scant bleeding. She also reports irregular myriam calixto. +FM. Reviwewed with Amita- She recommends patient rest, hydrate, attempt tylenol and warm baths, and continue to monitor. If symptoms worsen, to L&D for eval. Patient agreeable. Amita also advised that patient was requested to return to office 08/26 for repeat BMP, but did not complete. Patient reports being unaware of this, but will come into office in the am for repeat. documented in this encounter Plan of Treatment Upcoming Encounters Date Type Department Care Team (Late st Contact Info) Description 09/09/2024 9:30 AM EDT Routine [facility] OBGYN [address] [place] [address] Jacey Mathews, SPINNER FIXER [address] [facility] [address] [place] [address] 09/09/2024 9:30 AM EDT Ancillary Procedure [facility] OBGYN [address] [place] [address] Scheduled Orders Name Type Priority Associated Diagnoses Orde r Schedule Basic Metabolic Panel Lab Routine History of hypokalemia Expected: 09/01/2024 (Approximate), Expires: 11/27/2025 documented as of this encounter Visit Diagnoses Diagnosis History of hypokalemia- Primary documented in this encounter Additional Health Concerns Assessment Noted Time PHQ-2 Depression Total Score: 2 05/28/19 25 4:39 PM EDT documented as of this encounter Care Teams Desizing Machine Offbearer Relationship Specialty Start Date End Date Norma Friedman APRN [address] [place] [address] [place] [address] PCP - General Family Medicine 05/14/24 documented as of this encounter
--- OUTSIDE RECORDS SUMMARY | 2024-09-01 20:51 | XMS_ITS | Encounter Summary ---
[facility] Address [address] [place] [address] Care Team Providers Care Die Maintenance Technician Name Role Phone Norma Friedman APRN Primary Care Provider + [phone] Encounter Details Date Type Department Care Team (Late st Contact Info) Description 08/19/2024 Telephone [facility] OBGYN [address] [place] [address] Jacey Mathews, TYPE PROOF REPRODUCER [address] [facility] [address] [place] [address] Social History Tobacco Use Types Packs/Day Years Used Date Smoking Tobacco: Never Smokeless Tobacco: Never Alcohol Use Standard Drinks/Week Comments Never 0 (1 standard drink = 0.6 oz pur e alcohol) [facility] Utilities Answer Date Recorded In the past 12 months has [employer], [employer], oil, or water [employer] threatened to shut off services in [...] and heating? Not hard at all 05/28/2024 [facility] of Occupat ional [facility] - Occupational Stress Questionnaire Answer Date [...] GED or equivalent No 05/28/2024 Preferred Language Cuban 05/28/2024 PHQ-2 Answer Date Recorded Patient Health [...] Telephone Encounter - Lyudmila Blackburn MA - 08/19/2024 2:01 PM EDT Attempted to call patient per Amita request, as she has not checked in to labor and delivery following her appt in office with us. No answer, L[facility]B documented in this encounter Plan of Treatment Upcoming Encounters Date Type Department Care Team (Late st Contact Info) Description 09/09/2024 9:30 AM EDT Routine [facility] OBGYN [place] [address] Jacey Mathews, TYPE PROOF REPRODUCER [address] [facility] [address] [place] [address] 09/09/2024 9:30 AM EDT Ancillary Procedure [facility] OBGYN [address] [place] [address] documented as of this encounter Visit Diagnoses Not on filedocumented in this encounter Additional Health Concerns Assessment Noted Time PHQ-2 Depression Total Score: 2 05/28/19 25 4:39 PM EDT documented as of this encounter Care Teams Die Maintenance Technician Relationship Specialty Start Date End Date Norma Friedman, TYPE PROOF REPRODUCER [address] [place] [address] [place], [place] [address] PCP - General Family Medicine 05/14/24 documented as of this encounter
--- OUTSIDE RECORDS SUMMARY | 2024-09-01 20:51 | XMS_ITS | Encounter Summary ---
Author Organization [facility] Address [address] [place] [address] Care Team Providers Care Coronary Clinical Specialist Name Role Phone Norma Friedman APRN Primary Care Provider + [phone] Encounter Details Date Type Department Care Team (Latest Contact Info) Description 07/22/2024 Travel Social History Tobacco Use Types Packs/Day Years Used Date Smoking Tobacco: Never Smokeless Tobacco: Never Alcohol Use Standard Drinks/Week Comments Never 0 (1 standard drink = 0.6 oz pur e alcohol) [facility] Utilities Answer Date Recorded In the past 12 months has [employer], gas, oil, or water company threatened [...] and heating? Not hard at all 05/28/2024 [facility] [place] of Occupat ional Health - Occupational Stress [...] GED or equivalent No 05/28/2024 Preferred Language Bolivian 05/28/2024 PHQ-2 Answer Date Recorded Patient Health [...] Info) Description 09/09/2024 9:30 AM EDT Routine [facility] OBGYN [address] [place] [address] Jacey Mathews, REGIONAL CLIMATE CHANGE ANALYST [address] [facility] [address] [place] [address] 09/09/2024 9:30 AM EDT Ancillary Procedure [facility] OBGYN [address] [place] [address] documented as of this encounter Visit Diagnoses Not on filedocumented in this encounter Additional Health Concerns Assessment Noted Time PHQ-2 Depression Total Score: 2 05/28/19 25 4:39 PM EDT documented as of this encounter Care Teams Coronary Clinical Specialist Relationship Specialty Start Date End Date Norma Friedman APRN [address] [place] [address] [place] [address] PCP - General Family Medicine 05/14/24 documented as of this encounter
--- OUTSIDE RECORDS SUMMARY | 2024-09-01 20:51 | XMS_ITS | Encounter Summary ---
[facility] Address [address] [place] [id number] Care Team Providers Care Child Nutrition Manager Name Role Phone Ivyashlyn Norma FERNÁNDEZ Primary Care Provider + [phone] Encounter Details Date Type Department Care Team (Late st Contact Info) Description 08/28/2024 Telephone [facility] OBGYN [address] [address] Staci Jain MD [address] [place] [id number] Social History Tobacco Use Types Packs/Day Years Used Date Smoking Tobacco: Never Smokeless Tobacco: Never Alcohol Use Standard Drinks/Week Comments Never 0 (1 standard drink = 0.6 oz pur e alcohol) [facility] Utilities Answer Date Recorded In the past 12 months has [employer], [employer], oil, or water [employer] threatened to shut off services in [...] and heating? Not hard at all 05/28/2024 [facility] of Occupat ional Health - Occupational [...] GED or equivalent No 05/28/2024 Preferred Language Afghan 05/28/2024 PHQ-2 Answer Date Recorded Patient Health [...] encounter Miscellaneous Notes * Telephone Encounter - Sejal Escobar APRN - 08/28/2024 10:17 AM EDT SWP. She is needing to sit with a family member admitted to [facility] today and does not know if she can make it back for labs (BMP). She does have an appt in [facility] at 10 am tomorrow. Advisedthat it would be best to come to our lab if possible. She could also come in early tomorrow and have lab drawn stat so results will not be delayed further. She VU * Telephone Encounter - Sejal Escobar APRN - 08/28/2024 10:02 AM EDT [facility] * Telephone Encounter - Nan Anderson RegSched Rep - 08/28/2024 9:31 AM EDT Patient states she was supposed to come into [place] office today to have labs drawn however [facility]is currently hung [facility] at [facility] is wondering if she could just have labs drawn there? documented in this encounter Plan of Treatment Upcoming Encounters Date Type Department Care Team (Late st Contact Info) Description 09/09/2024 9:30 AM EDT Routine [facility] OBGYN [address] [place] [address] Jacey Mathews, PROCEDURE ANALYST [address] [facility] [address] [place] [address] 09/09/2024 9:30 AM EDT Ancillary Procedure [facility] OBGYN [address] [place] [address] documented as of this encounter Visit Diagnoses Not on filedocumented in this encounter Additional Health Concerns Assessment Noted Time PHQ-2 Depression Total Score: 2 05/28/19 25 4:39 PM EDT documented as of this encounter Care Teams Child Nutrition Manager Relationship Specialty Start Date End Date Norma Friedman APRN [address] [place] [address] [place] [address] PCP - General Family Medicine 05/14/24 documented as of this encounter
--- OUTSIDE RECORDS SUMMARY | 2024-09-01 20:51 | XMS_ITS | Encounter Summary ---
Author Organization [facility] Address [address] [place] [address] Care Team Providers Care Utilization Management Manager Name Role Phone Norma Friedman APRN Primary Care Provider + [phone] Encounter Details Date Type Department Care Team (Latest Contact Info) Description 08/19/2024 Travel Social History Tobacco Use Types Packs/Day Years Used Date Smoking Tobacco: Never Smokeless Tobacco: Never Alcohol Use Standard Drinks/Week Comments Never 0 (1 standard drink = 0.6 oz pur e alcohol) [facility] Utilities Answer Date Recorded In the past 12 months has [employer], gas, oil, or water company threatened [...] heating? Not hard at all 05/28/2024 [facility] [place] of Occupat ional Health - Occupational Stress [...] GED or equivalent No 05/28/2024 Preferred Language Cambodian 05/28/2024 PHQ-2 Answer Date Recorded Patient Health [...] to be (Past 1 Month) No 025 2:34 PM EDT Nneka Cross RN 2. Non-Specific Active Suici mike Thoughts (Past 1 Month) No 08/19/2024 2:34 PM EDT Lucy Cross RN * Calculated C-SSRS Risk Score (Lifetime/Recent) Answer Date of Assessment Author No Risk Indicated 08/19/2024 2:34 PM EDT Nneka Cross RN * [place] Suicide Severity Rating Scale (Screener/Recent Self-Report) Question Answer Date of Assessment Author 6. Suicidal Behavior (Lifetime) No 2:34 PM EDT Nneka Cross RN documented as of this encounter Plan of Treatment Upcoming Encounters Date Type Department Care Team (Late st Contact Info) Description 09/09/2024 9:30 AM EDT Routine [facility] OBGYN [address] [place] [address] Jacey Mathews, MARKETING ADMIN [address] [facility] [address] [place] [address] 09/09/2024 9:30 AM EDT Ancillary Procedure [facility] OBGYN [address] [place] [address] documented as of this encounter Visit Diagnoses Not on filedocumented in this encounter Additional Health Concerns Assessment Noted Time PHQ-2 Depression Total Score: 2 05/28/19 25 4:39 PM EDT documented as of this encounter Care Teams Utilization Management Manager Relationship Specialty Start Date End Date Norma Friedman APRN [address] [place] [address] [place] [address] PCP - General Family Medicine 05/14/24 documented as of this encounter
--- OUTSIDE RECORDS SUMMARY | 2024-09-01 20:52 | XMS_ITS | Encounter Summary ---
Author Organization [facility] Address [address] [place] [address] Care Team Providers Care Pressure Tank Operator Name Role Phone Unavailable Primary Care Provider Unavailabl e Encounter Details Date Type Department Care Team (Late st Contact Info) Description 07/22/2024 [facility] [address] [place] [address] Sandy Cardenas MD [address] [facility] [address] [place] [id number] Social History Tobacco Use Types Packs/Day Years [...] as of this encounter Plan of Treatment Not on file documented as of this encounter Visit Diagnoses Not on filedocumented in this encounter
--- OUTSIDE RECORDS SUMMARY | 2024-09-01 20:52 | XMS_ITS | Data Portability ---
Author Organization [facility] Address [address] [place] [address] Assessment Encounter Date Assessment Date Assessment LastModified by Organization Details LastModified Time 04/12/2024 04/12/2024 34 yo here for OB visit Not available 04/15/2024 14:32:41 04/22/2024 04/22/2024 34 yo here for OB visit Not available 04/22/2024 13:31:06 05/07/2024 05/07/2024 34 yo here for OB visit [email or web address] Not available 05/06/2024 11:07:32 05/15/2024 05/15/2024 34 yo here for OB visit [email or web address] Not available 05/15/2024 13:03:14 Plan of Treatment Reminders Order Date Submit Date Provider Last Modified By Organization Details Last Modified Time Details Appointments None recorded. Lab urinalysis , dipstick 2024 025 [email or web address] [place] [employer], [address] [place] [address] , [place], [address], 09:37:47 urinalysis , dipstick 2024 025 LAURA [employer] [employer], [address] [place] [address] , [place], [address], 15:42:56 aneuploidy risk and X & Y analysis, chromosome specific circulatin g cell free (CCF) DNA, maternal serum 2024 025 LAURA [facility], [address], [address] [address], [place], [address], 5 14:27:53 unlisted lab - inheritest (R)CF / sma panel 2024 025 LAURA [facility], [address], [place], [place], [address], 14:27:54 urinalysis , dipstick [email or web address] [place] [address] [employer], [address] [place] [address] , [place], [address], 5 13:32:19 vaginal pathogens panel, JAY+probe, vaginal fluid 2024 025 LAURA [facility], [address], [place] [address], [place], [address], 5 12:09:00 culture, urine 2024 025 [email or web address] [facility], [address], [place], [place], [address], 5 09:55:35 urinalysis , dipstick 2024 025 [email or web address] [place] [employer], [address] [place] [address] , [place], [address], 14:03:33 urinalysis , dipstick [email or web address] [place] [address] [employer], [address] [place] [address] , [place], [address], 5 14:32:44 Referral None recorded. Procedures None recorded. Surgeries None recorded. Imaging US, obstetric, limited 2024 025 [email or web address] [place] [employer], [address] [place] [address] , [place], [address], 5 09:38:22 US, obstetric, limited 2024 025 [email or web address] [place] [employer], [address] [place] [address] , [place], [address], 5 14:49:15 US, obstetric, limited [email or web address] [employer], [address] [place] [address] , [place], [address], 5 13:32:19 US, obstetric, 1st trimester 2024 025 [email or web address] [place] [employer], [address] [place] [address] , [place], [address], 5 14:03:33 US, obstetric, 1st trimester [email or web address] [employer], [address] [place] [address] , [place], [address], 5 14:33:31 Medication Orders promethazi ne 12.5 mg rectal suppositor y 2024 025 [facility], [address] [place], [address], 5 14:43:28 promethazi ne 12.5 mg tablet 2024 025 [facility], [address] [place], [address], 5 14:03:39 promethazi ne 12.5 mg rectal suppositor y 2024 025 [facility], [address] [place], [address], 14:03:41 Pepcid 20 mg tablet 2024 025 [facility], [address] [place], [address], 14:04:54 pyridoxine (vitamin B6) 25 mg tablet 2024 025 [facility], [address] [place], [address], 14:04:55 Patient TargetsNo targets recorded. Patient Instructions Encounter Date Encounter Id Patient Instructions Last Modified By Organization Details Last Modified Time 04/12/2024 [id number] nausea and vomiting: care instructions Not available 04/12/2024 14:04:47 high-risk : care instructions Not available 04/12/2024 14:04:48 04/18/2024 [id number] body mass index: care instructions [email or web address] Not available 04/18/2024 14:03:33 learning about healthy weight [email or web address] Not available 04/18/2024 14:03:33 Reason for Referral None Reported. Results Created Date Observation Date Name Description Value Unit Range Abnormal Flag Note LastModifiedBy Organization Detail LastModifiedTime 04/02/19 25 04/03/2024 HCG,B ETA SUBUN IT, QNT HCG,beta subunit,qnt, serum 8290 mIU/m L Femal e (Non- pregn ant) 0 - 5 (Post menop ausal ) 0 - 8 Femal e (Preg nant) Weeks of Gesta tion 3 6 - 71 4 10 - 750 5 956 - 3588 6 314 - 03397 7 6366 -6665 63 8 22537 -4278 71 9 52652 -2354 10 10 46243 -2245 77 12 84665 -4396 12 14 11523 - 42562 15 02155 - 27817 16 6211 - 17948 17 4608 - 55682 18 8612 - 99316 Kisha ECLIA metho dolog y Not Available [facility] ([facility]) [address] [facility], [place], [address], 04/03/2024 07:15:16 04/02/19 25 04/03/2024 PROGE STERO NE progesterone 16.0 NG/mL normal Folli cular phase 0.1 - 0.9 Lutea l phase 1.8 - 23.9 Ovula tion phase 0.1 - 12.0 Pregn ant First trime ster 11.0 - 44.3 Secon d trime ster 25.4 - 83.3 Third trime ster 58.7 - 214.0 Postm enopa usal 0.0 - 0.1 Not Available [facility] ([facility]) [address] [facility], [place], [address], 04/03/2024 07:15:17 04/02/19 25 04/02/2024 urina lysis , dipst ick Leukocytes Negati ve Not Available [employer] [employer] [address] [place] [address] , [place], [address], 04/02/2024 09:59:53 04/02/19 25 04/02/2024 urina lysis , dipst ick Nitrite negati ve Not Available [employer] [address] [place] [address] , [place], [address], 04/02/2024 09:59:53 04/02/19 25 04/02/2024 urina lysis , dipst ick Urobilinogen .2 Not Available [facility] [employer] [address] [place] [address] , [place], [address], 04/02/2024 09:59:53 04/02/19 25 04/02/2024 urina lysis , dipst ick Protein 300 Not Available [place] [employer] [address] [place] [address] , [place], [address], 04/02/2024 09:59:53 04/02/19 25 04/02/2024 urina lysis , dipst ick pH 6.5 Not Available [facility] [address] [place] [address] , [place], [address], 04/02/2024 09:59:53 04/02/1904/02/2024 urina lysis , dipst ick Blood Negati ve Not Available [place] [employer] [address] [place] [address] , [place], [address], 04/02/2024 09:59:53 04/02/1904/02/2024 urina lysis , dipst ick Specific [place] 1.010 Not Available [facility] [employer] [address] [place] [address] , [place], [address], 04/02/2024 09:59:53 04/02/19 25 04/02/2024 urina lysis , dipst ick Ketone Negati ve Not Available [facility]/[address] , [place], [address], 04/02/2024 09:59:53 04/02/19 25 04/02/2024 urina lysis , dipst ick Bilirubin Negati ve Not Available [facility]/[address] , [place], [address], 04/02/2024 09:59:53 04/02/1904/02/2024 urina lysis , dipst ick Glucose Negati ve Not Available [place] [employer] , [place], [address], 04/02/2024 09:59:53 04/02/1904/02/2024 urina lysis , dipst ick Appearance Slight ly Cloudy Not Available [place] [employer] , [place], [address], 04/02/2024 09:59:53 04/02/19 04/02/2024 urina lysis , dipst ick Color Yellow Not Available [place] [employer] [address] [facility] , [place], [address], 04/02/2024 09:59:53 04/10/1904/10/2024 NUSWA B VAGIN ITIS PLUS (VG+) atopobium vaginae Low - 0 score Not Available [facility] ([facility]) [address] [facility], [place], [address], 04/10/2024 22:07:54 04/10/1904/10/2024 NUSWA B VAGIN ITIS PLUS (VG+) bvab 2 Low - 0 score Not Available [facility] ([facility]) [address] [facility], [place], [address], 04/10/2024 22:07:54 04/10/1904/10/2024 NUSWA B VAGIN ITIS PLUS (VG+) megasphaera 1 Low - 0 score Calcu late total score by fior g the 3 indiv idual bacte rial vagin osis (BV) marke r score s toget her. Total score is inter prete d as follo ws: Total score 0-1: Indic ates the absen ce of BV. Total score 2: Indet ermin ate for BV. Addit ional clini kera data shoul d be evalu ated to estab jacobo a diagn osis. Total score 3-6: Indic ates the prese nce of BV. Not Available [facility] ([facility]) [address] [facility], [place], [address], 04/10/2024 22:07:54 04/10/1904/10/2024 NUSWA B VAGIN ITIS PLUS (VG+) keyonna albicans, JAY Negati ve negati ve Not Available [facility] ([facility]) [address] [place], [address], 04/10/2024 22:07:54 04/10/1904/10/2024 NUA B VAGIN ITIS PLUS (VG+) keyonna glabrata, JAY Negati ve negati ve Not Available [facility] ([facility]) [address] [facility], [place], [address], 04/10/2024 22:07:54 04/10/19 25 04/10/2024 NUA B VAGIN ITIS PLUS (VG+) trich vag by JAY Negati ve negati ve Not Available [facility] ([facility]) [address] [place], [address], 04/10/2024 22:07:54 04/10/19 25 04/10/2024 NUA B VAGIN ITIS PLUS (VG+) chlamydia trachomatis, JAY Negati ve negati ve Not Available [facility] ([facility]) [address] [place], [address], 04/10/2024 22:07:54 04/10/19 25 04/10/2024 NUA B VAGIN ITIS PLUS (VG+) neisseria gonorrhoeae, JAY Negati ve negati ve Not Available [facility] ([facility]) [address] [place], [address], 04/10/2024 22:07:54 04/10/19 25 04/10/2024 PREGN ROBERT, INITI AL SCREE N HBsAg screen Negati ve negati ve Not Available [facility] ([facility]) [address] [place], [address], 04/11/2024 20:09:33 04/10/19 25 04/10/2024 PREGN ROBERT, INITI AL SCREE N HCV Ab Non Reacti ve non reacti ve Not Available [facility] ([facility]) [address] [place], [address], 04/11/2024 20:09:33 04/10/19 25 04/10/2024 PREGN ROBERT, INITI AL SCREE N interpretati on: Commen t Not infec adán with HCV unles s early or acute infec tion is suspe cted (whic h may be delay ed in an immun ocomp romis ed indiv idual ), or other evide nce exist s to indic ate HCV infec tion. Not Available [facility] ([facility]) [address] [facility], [place], [address], 04/11/2024 20:09:33 04/10/19 25 04/10/2024 PREGN ROBERT, INITI AL SCREE N RPR Non Reacti ve non reacti ve Not Available [facility] ([facility]) [address] [facility], [place], [address], 04/11/2024 20:09:33 04/10/19 25 04/10/2024 PREGN ROBERT, INITI AL SCREE N rubella antibodies, IgG 1.35 index immune >0.99 Non-i mmune <0.90 Equiv ocal 0.90 - 0.99 Immun e >0.99 Not Available [facility] ([facility]) [address] [facility], [place], [address], 04/11/2024 20:09:33 04/10/19 25 04/10/2024 PREGN ROBERT, INITI AL SCREE N ABO grouping O Not Available [facility] ([facility]) [address] [facility], [place], [address], 04/11/2024 20:09:33 04/10/19 25 04/10/2024 PREGN ROBERT, INITI AL SCREE N Rh factor Positi ve Pleas e note: Prior recor ds for this patie nt's ABO / Rh type are not avail able for addit ional verif icati on. Not Available [facility] ([facility]) [address] [facility], [place], [address], 04/11/2024 20:09:33 04/10/19 25 04/10/2024 PREGN ROBERT, INITI AL SCREE N antibody screen Negati ve negati ve Not Available [facility] ([facility]) [address] [place], [address], 04/11/2024 20:09:33 04/10/19 25 04/10/2024 PREGN ROBERT, INITI AL SCREE N HIV Ab/P24 Ag screen Non Reacti ve non reacti ve HIV-1 /HIV- 2 antib odies and HIV-1 p24 antig en were NOT detec adán. There is no labor atory evide nce of HIV infec tion. HIV Negat rey Not Available [facility] ([facility]) [address] [place], [address], 04/11/2024 20:09:33 04/10/19 25 04/10/2024 PREGN ROBERT, INITI AL SCREE N chlamydia trachomatis, JAY Negati ve negati ve Not Available [facility] ([facility]) [address] [place], [address], 04/11/2024 20:09:33 04/10/19 25 04/10/2024 PREGN ROBERT, INITI AL SCREE N neisseria gonorrhoeae, JAY Negati ve negati ve Not Available [facility] ([facility]) [address] [facility], [place], [address], 04/11/2024 20:09:33 04/10/19 25 04/10/2024 PREGN ROBERT, INITI AL SCREE N WBC 9.9 x10e3 /uL 3.4-10 .8 normal Not Available [facility] ([facility]) [address] [place], [address], 04/11/2024 20:09:33 04/10/19 25 04/10/2024 PREGN ROBERT, INITI AL SCREE N RBC 4.48 x10e6 /uL 3.77-5 .28 normal Not Available [facility] ([facility]) [address] [place], [address], 04/11/2024 20:09:33 04/10/19 25 04/10/2024 PREGN ROBERT, INITI AL SCREE N hemoglobin 12.8 g/dL 11.1-1 5.9 normal Not Available [facility] ([facility]) [address] [place], [address], 04/11/2024 20:09:33 04/10/19 25 04/10/2024 PREGN ROBERT, INITI AL SCREE N hematocrit 39.2 % 34.0-4 6.6 normal Not Available [facility] ([facility]) [address] [place], [address], 04/11/2024 20:09:33 04/10/19 25 04/10/2024 PREGN ROBERT, INITI AL SCREE N MCV 88 fL 79-97 normal Not Available [facility] ([facility]) [address] [facility], [place], [address], 04/11/2024 20:09:33 04/10/19 25 04/10/2024 PREGN ROBERT, INITI AL SCREE N MCH 28.6 pg 26.6-3 3.0 normal Not Available [facility] ([facility]) [address] [place], [address], 04/11/2024 20:09:33 04/10/19 25 04/10/2024 PREGN ROBERT, INITI AL SCREE N MCHC 32.7 g/dL 31.5-3 5.7 normal Not Available [facility] ([facility]) [address] [place], [address], 04/11/2024 20:09:33 04/10/19 25 04/10/2024 PREGN ROBERT, INITI AL SCREE N RDW 13.0 % 11.7-1 5.4 Not Available [facility] ([facility]) [address] [place], [address], 04/11/2024 20:09:33 04/10/19 25 04/10/2024 PREGN ROBERT, INITI AL SCREE N platelets 272 x10e3 /uL 150-45 0 normal Not Available [facility] ([facility]) [address] [facility], [place], [address], 04/11/2024 20:09:33 04/10/19 25 04/10/2024 PREGN ROBERT, INITI AL SCREE N neutrophils 69 % not estab. normal Not Available [facility] ([facility]) [address] [facility], [place], [address], 04/11/2024 20:09:33 04/10/19 25 04/10/2024 PREGN ROBERT, INITI AL SCREE N lymphs 22 % not estab. normal Not Available [facility] ([facility]) [address] [facility], [place], [address], 04/11/2024 20:09:33 04/10/19 25 04/10/2024 PREGN ROBERT, INITI AL SCREE N monocytes 8 % not estab. normal Not Available [facility] ([facility]) [address] [facility], [place], [address], 04/11/2024 20:09:33 04/10/19 25 04/10/2024 PREGN ROBERT, INITI AL SCREE N eos 1 % not estab. normal Not Available [facility] ([facility]) [address] [facility], [place], [address], 04/11/2024 20:09:33 04/10/19 25 04/10/2024 PREGN ROBERT, INITI AL SCREE N basos 0 % not estab. normal Not Available [facility] ([facility]) [address] [facility], [place], [address], 04/11/2024 20:09:33 04/10/19 25 04/10/2024 PREGN ROBERT, INITI AL SCREE N immature cells RISK CONSULTING TREASURY DIRECTOR Not Available [facility] ([facility]) [address] [facility], [place], [address], 04/11/2024 20:09:33 04/10/19 25 04/10/2024 PREGN ROBERT, INITI AL SCREE N neutrophils (absolute) 6.9 x10e3 /uL 1.4-7. 0 normal Not Available [facility] ([facility]) [address] [place], [address], 04/11/2024 20:09:33 04/10/19 25 04/10/2024 PREGN ROBERT, INITI AL SCREE N lymphs (absolute) 2.2 x10e3 /uL 0.7-3. 1 normal Not Available [facility] ([facility]) [address] [place], [address], 04/11/2024 20:09:33 04/10/19 25 04/10/2024 PREGN ROBERT, INITI AL SCREE N monocytes(ab solute) 0.7 x10e3 /uL 0.1-0. 9 normal Not Available [facility] ([facility]) [address] [place], [address], 04/11/2024 20:09:33 04/10/19 25 04/10/2024 PREGN ROBERT, INITI AL SCREE N eos (absolute) 0.1 x10e3 /uL 0.0-0. 4 normal Not Available [facility] ([facility]) [address] [place], [address], 04/11/2024 20:09:33 04/10/19 25 04/10/2024 PREGN ROBERT, INITI AL SCREE N baso (absolute) 0.0 x10e3 /uL 0.0-0. 2 normal Not Available [facility] ([facility]) [address] [place], [address], 04/11/2024 20:09:33 04/10/19 25 04/10/2024 PREGN ROBERT, INITI AL SCREE N immature granulocytes 0 % not estab. Not Available [facility] ([facility]) [address] [place], [address], 04/11/2024 20:09:33 04/10/19 25 04/10/2024 PREGN ROBERT, INITI AL SCREE N immature grans (abs) 0.0 x10e3 /uL 0.0-0. 1 Not Available [facility] ([facility]) [address] [facility], [place], [address], 04/11/2024 20:09:33 04/10/19 25 04/10/2024 PREGN ROBERT, INITI AL SCREE N NRBC RISK CONSULTING TREASURY DIRECTOR Not Available [facility] ([facility]) [address] [facility], [place], [address], 04/11/2024 20:09:33 04/10/19 25 04/10/2024 PREGN ROBERT, INITI AL SCREE N hematology comments: RISK CONSULTING TREASURY DIRECTOR Not Available [facility] ([facility]) [address] [place], [address], 04/11/2024 20:09:33 04/10/19 25 04/10/2024 PREGN ROBERT, INITI AL SCREE N specific gravity 1.025 1.005- 1.030 normal Not Available [facility] ([facility]) [address] [place], [address], 04/11/2024 20:09:33 04/10/19 25 04/10/2024 PREGN ROBERT, INITI AL SCREE N pH 7.5 5.0-7. 5 normal Not Available [facility] ([facility]) [address] [place], [address], 04/11/2024 20:09:33 04/10/19 25 04/10/2024 PREGN ROBERT, INITI AL SCREE N urine-color Yellow yellow Not Available [facility] ([facility]) [address] [place], [address], 04/11/2024 20:09:33 04/10/19 25 04/10/2024 PREGN ROBERT, INITI AL SCREE N appearance Turbid clear abnormal Not Available [facility] ([facility]) [address] [facility], [place], [address], 04/11/2024 20:09:33 04/10/19 25 04/10/2024 PREGN ROBERT, INITI AL SCREE N WBC esterase Trace negati ve abnormal Not Available [facility] ([facility]) [address] [facility], [place], [address], 04/11/2024 20:09:33 04/10/19 25 04/10/2024 PREGN ROBERT, INITI AL SCREE N protein 1+ negati ve/tra ce abnormal Not Available [facility] ([facility]) [address] [place], [address], 04/11/2024 20:09:33 04/10/19 25 04/10/2024 PREGN ROBERT, INITI AL SCREE N glucose Negati ve negati ve Not Available [facility] ([facility]) [address] [place], [address], 04/11/2024 20:09:33 04/10/19 25 04/10/2024 PREGN ROBERT, INITI AL SCREE N ketones Trace negati ve abnormal Not Available [facility] ([facility]) [address] [place], [address], 04/11/2024 20:09:33 04/10/19 25 04/10/2024 PREGN ROBERT, INITI AL SCREE N occult blood Negati ve negati ve Not Available [facility] ([facility]) [address] [place], [address], 04/11/2024 20:09:33 04/10/19 25 04/10/2024 PREGN ROBERT, INITI AL SCREE N bilirubin Negati ve negati ve Not Available [facility] ([facility]) [address] [place], [address], 04/11/2024 20:09:33 04/10/19 25 04/10/2024 PREGN ROBERT, INITI AL SCREE N urobilinogen ,semi-qn 0.2 mg/dL 0.2-1. 0 normal Not Available [facility] ([facility]) [address] [place], [address], 04/11/2024 20:09:33 04/10/19 25 04/10/2024 PREGN ROBERT, INITI AL SCREE N nitrite, urine Negati ve negati ve Not Available [facility] ([facility]) [address] [place], [address], 04/11/2024 20:09:33 04/10/19 25 04/10/2024 PREGN ROBERT, INITI AL SCREE N microscopic examination See below: Micro scopi c was indic ated and was perfo rmed. Not Available [facility] ([facility]) [address] [place], [address], 04/11/2024 20:09:33 04/10/19 25 04/10/2024 PREGN ROBERT, INITI AL SCREE N WBC None seen /hpf 0 - 5 Not Available [facility] ([facility]) [address] [place], [address], 04/11/2024 20:09:33 04/10/19 25 04/10/2024 PREGN ROBERT, INITI AL SCREE N RBC None seen /hpf 0 - 2 Not Available [facility] ([facility]) [address] [place], [address], 04/11/2024 20:09:33 04/10/19 25 04/10/2024 PREGN ROBERT, INITI AL SCREE N epithelial cells (non renal) 0-10 /hpf 0 - 10 Not Available [facility] ([facility]) [address] [place], [address], 04/11/2024 20:09:33 04/10/19 25 04/10/2024 PREGN ROEBRT, INITI AL SCREE N epithelial cells (renal) RISK CONSULTING TREASURY DIRECTOR Not Available [facility] ([facility]) [address] [facility], [place], [address], 04/11/2024 20:09:33 04/10/19 25 04/10/2024 PREGN ROBERT, INITI AL SCREE N casts None seen /lpf none seen Not Available [facility] ([facility]) [address] [facility], [place], [address], 04/11/2024 20:09:33 04/10/19 25 04/10/2024 PREGN ROBERT, INITI AL SCREE N cast type RISK CONSULTING TREASURY DIRECTOR Not Available [facility] ([facility]) [address] [facility], [place], [address], 04/11/2024 20:09:33 04/10/19 25 04/10/2024 PREGN ROBERT, INITI AL SCREE N crystals Presen t n/a abnormal Not Available [facility] ([facility]) [address] [facility], [place], [address], 04/11/2024 20:09:33 04/10/19 25 04/10/2024 PREGN ROBERT, INITI AL SCREE N crystal type Amorph ous Sedime nt n/a Not Available [facility] ([facility]) [address] [facility], [place], [address], 04/11/2024 20:09:33 04/10/19 25 04/10/2024 PREGN ROBERT, INITI AL SCREE N mucus threads Presen t not estab. Not Available [facility] ([facility]) [address] [facility], [place], [address], 04/11/2024 20:09:33 04/10/19 25 04/10/2024 PREGN ROBERT, INITI AL SCREE N bacteria None seen none seen/f ew Not Available [facility] ([facility]) [address] [facility], [place], [address], 04/11/2024 20:09:33 04/10/19 25 04/10/2024 PREGN ROBERT, INITI AL SCREE N yeast RISK CONSULTING TREASURY DIRECTOR Not Available [facility] ([facility]) [address] [facility], [place], [address], 04/11/2024 20:09:33 04/10/19 25 04/10/2024 PREGN ROBERT, INITI AL SCREE N trichomonas RISK CONSULTING TREASURY DIRECTOR Not Available [facility] ([facility]) [address] [facility], [place], [address], 04/11/2024 20:09:33 04/10/19 25 04/10/2024 PREGN ROBERT, INITI AL SCREE N comment RISK CONSULTING TREASURY DIRECTOR Not Available [facility] ([facility]) [address] [facility], [place], [address], 04/11/2024 20:09:33 04/10/19 25 04/10/2024 PREGN ROBERT, INITI AL SCREE N microscopic examination RISK CONSULTING TREASURY DIRECTOR Not Available [facility] [address] [facility], [place], [address], 04/11/2024 20:09:33 04/10/19 25 04/11/2024 PREGN ROBERT, INITI AL SCREE N urine culture,pren atal, w/gbs Final report Not Available [facility] ([facility]) [address] [facility], [place], [address], 04/11/2024 20:09:33 04/10/19 25 04/11/2024 PREGN ROBRET, INITI AL SCREE N result 1 No growth Not Available [facility] ([facility]) [address] [facility], [place], [address], 04/11/2024 20:09:33 04/10/19 25 04/10/2024 HEMOG LOBIN A1C hemoglobin A1C 4.7 % 4.8-5. 6 below low normal Predi abete s: 5.7 - 6.4 Diabe pili: >6.4 Glyce benjy contr ol for adult s with diabe pili: <7.0 Not Available [facility] ([facility]) [address] [facility], [place], [address], 04/11/2024 20:09:34 04/10/19 25 04/10/2024 VARIC RASHID- ZOSTE R V AB, IGG varicella zoster IgG Reacti ve non reacti ve Ple ase note refer ence inter stanislaw ribera e A React rey resul t is consi dered evide nce of immun ity to VZV. React rey indic ates that VZV IgG was detec adán consi stent with previ ous infec tion and/o r vacci natio n. A Non React rey resul t indic ates that VZV IgG was not detec adán sugge sting that immun ity has not been acqui red. Not Available [facility] ([facility]) [address] [facility], [place], [address], 04/11/2024 20:09:35 04/19/19 25 04/21/2024 NUSWA B VAGIN ITIS PLUS (VG+) atopobium vaginae Low - 0 score Not Available [facility] ([facility]) [address] [facility], [place], [address], 04/21/2024 12:08:59 04/19/19 25 04/21/2024 NUSWA B VAGIN ITIS PLUS (VG+) bvab 2 Low - 0 score Not Available [facility] ([facility]) [address] [place], [address], 04/21/2024 12:08:59 04/19/19 25 04/21/2024 NUSWA B VAGIN ITIS PLUS (VG+) megasphaera 1 Low - 0 score Calcu late total score by fior benson the 3 indiv idual bacte rial vagin osis (BV) marke r score s toget her. Total score is inter prete d as follo ws: Total score 0-1: Indic ates the absen ce of BV. Total score 2: Indet ermin ate for BV. Addit ional clini kera data bear davila be evalu ated to estab jacobo lassiter. Total score 3-6: Indic ates the prese nce of BV. Not Available [facility] ([facility]) [address] [facility], [place], [address], 04/21/2024 12:08:59 04/19/19 25 04/21/2024 NUSWA B VAGIN ITIS PLUS (VG+) keyonna albicans, JAY Negati ve negati ve Not Available [facility] ([facility]) [address] [place], [address], 04/21/2024 12:08:59 04/19/19 25 04/21/2024 NUSWA B VAGIN ITIS PLUS (VG+) keyonna glabrata, JAY Negati ve negati ve Not Available [facility] ([facility]) [address] [place], [address], 04/21/2024 12:08:59 04/19/19 25 04/21/2024 NUSWA B VAGIN ITIS PLUS (VG+) trich vag by JAY Negati ve negati ve Not Available [facility] ([facility]) [address] [place], [address], 04/21/2024 12:08:59 04/19/19 25 04/21/2024 NUSWA B VAGIN ITIS PLUS (VG+) chlamydia trachomatis, JAY Negati ve negati ve Not Available [facility] ([facility]) [address] [place], [address], 04/21/2024 12:08:59 04/19/19 25 04/21/2024 NUSWA B VAGIN ITIS PLUS (VG+) neisseria gonorrhoeae, JAY Negati ve negati ve Not Available [facility] ([facility]) [address] [place], [address], 04/21/2024 12:08:59 05/08/19 25 05/11/2024 MATER NIT21 PLUS CORE gestation Single ton Not Available [facility] ([facility]) [address] [place], [address], 05/21/2024 14:27:53 05/08/19 25 05/11/2024 MATER NIT21 PLUS CORE fraction 20% Not Available [facility] ([facility]) [address] [facility], [place], [address], 05/21/2024 14:27:53 05/08/19 25 05/11/2024 MATER NIT21 PLUS CORE gestational age > or = 9W: Yes Not Available [facility] ([facility]) [address] [facility], [place], [address], 05/21/2024 14:27:53 05/08/19 25 05/11/2024 MATER NIT21 PLUS CORE test result Negati ve Not Available [facility] ([facility]) [address] [place], [address], 05/21/2024 14:27:53 05/08/19 25 05/11/2024 MATER NIT21 PLUS CORE laboratory scientist comments Dalton Wilcox speci men showe d an expec adán repre senta tion of chrom osome 21, 18 and 13 mater ial. Clini kera corre latio n is sugkeenan thomasd. Not Available [facility] ([facility]) [address] [place], [address], 05/21/2024 14:27:53 05/08/19 25 05/11/2024 MATER NIT21 PLUS CORE approved by Dalton vitale MD, PhD, [facility] tor, Seque nom Labor atori es Not Available [facility] ([facility]) [address] [place], [address], 05/21/2024 14:27:53 05/08/19 25 05/11/2024 MATER NIT21 PLUS CORE trisomy 21 (down syndrome) Negati ve Not Available [facility] ([facility]) [address] [facility], [place], [address], 05/21/2024 14:27:53 05/08/19 25 05/11/2024 MATER NIT21 PLUS CORE trisomy 18 (dumont syndrome) Negati ve Not Available [facility] ([facility]) [address] [place], [address], 05/21/2024 14:27:53 05/08/19 25 05/11/2024 MATER NIT21 PLUS CORE trisomy 13 (patau syndrome) Negati ve Not Available [facility] ([facility]) [address] [place], [address], 05/21/2024 14:27:53 05/08/19 25 05/11/2024 MATER NIT21 PLUS CORE sex Commen t Consi stent with Femal e Not Available [facility] ([facility]) [address] [facility], [place], [address], 05/21/2024 14:27:53 05/08/19 25 05/11/2024 MATER NIT21 PLUS CORE negative predictive value Note The Negat rey Predi ctive Value (NPV) for triso my 21, 18, and 13 is great er than 99%. The NPV for SCA and ESS canno t be calcu lated as SCA and ESS are only repor adán when an abnor malit y is detec adán. Not Available [facility] ([facility]) [address] [facility], [place], [address], 05/21/2024 14:27:53 05/08/19 25 05/11/2024 MATER NIT21 PLUS CORE positive predictive value N/A Not Available [facility] ([facility]) [address] [facility], [place], [address], 05/21/2024 14:27:53 05/08/19 25 05/11/2024 MATER NIT21 PLUS CORE about the test Commen t The Mater niT(R ) 21 PLUS labor atory -deve loped test (LDT) khari zes circu latin g cell- free DNA from a mater nal blood sampl e. This test is used for scree daisha purpo ses and not diagn ostic . Clini kera corre latio n is recom traci d. Valid ation data on twin pregn ancie s is limit ed and the abili ty of this test to detec t aneup loidy in highe r multi ple gesta tions has not yet been valid ated. Not Available [facility] ([facility]) [address] [facility], [place], [address], 05/21/2024 14:27:53 05/08/19 25 05/11/2024 MATER NIT21 PLUS CORE test method Commen t See Notes Circu latin g cell- free DNA was purif ied from the plasm a compo nent of mater nal blood . The extra cted DNA was then conve rted into a [employer] coby ry for aneup loidy khari sis of chrom osome s 21, 18, and 13 via next gener ation seque ncing .[1] Optio nal findi ngs based on the test order inclu de sex chrom osome aneup loidy (SCA) [2], and enhan kyree seque ncing serie s (ESS) [3], which will only be repor adán on as an addit ional findi ng when an abnor malit y is detec adán. SCA testi ng inclu lesley infor matio n on X and Y repre senta tion, while ESS testi ng inclu lesley delet ions in selec adán regio ns (22q, 15q, 11q, 8q, 5p, 4p, 1p) and triso my of chrom osome s 16 and 22. Not Available [facility] ([facility]) [address] [facility], [place], [address], 05/21/2024 14:27:53 05/08/19 25 05/11/2024 MATER NIT21 PLUS CORE performance Commen t The perfo rmanc e toni cteri stics of the Mater niT(R ) 21 PLUS labor atory -deve loped test (LDT) have been deter mined in a clini kera valid ation study with pregn ant women at incre ased risk for chrom osoma l aneup loidy .[1-4 ] Not Available [facility] ([facility]) [address] [facility], [place], [address], 05/21/2024 14:27:53 05/08/19 25 05/11/2024 MATER NIT21 PLUS CORE performance characterist ics Note ----- ----- ----- ----- ----- ----- ----- ----- ----- ----- ----- ---- ! Sex ! Accur acy: 99.4% ! !---- ----- ----- ----- ----- ----- ----- ----- ----- ----- ----- ---! ! Regio n (yecenia chávez d syndr ome) ! Est. Sens# ! Est. Spec ! !---- ----- ----- ----- ----- ----- ----- ----- ----- ----- ----- ---! ! Oswaldo my 21 (Bryce Syndr ome) ! 99.1% ! 99.9% ! !---- ----- ----- ----- ----- ----- ----- ----- ----- ----- ----- ---! ! Oswaldo nails 18 (Woo loya Syndr ome) ! >99.9 % ! 99.6% ! !---- ----- ----- ----- ----- ----- ----- ----- ----- ----- ----- ---! ! Triso my 13 (Pata u Syndr ome) ! 91.7% ! 99.7% ! !---- ----- ----- ----- ----- ----- ----- ----- ----- ----- ----- ---! ! Sex Chrom osome Aneup anabelle es## ! 96.2% ! 99.7% ! !---- ----- ----- ----- ----- ----- ----- ----- ----- ----- ----- ---! * As repor adán in ISCA datab ase nstd3 7 [http [email or web address] [email or web address]/ dbvar /stud ies/n std37 / ] # Estim ated Sensi tivit y. Sensi tivit y estim ated acros s the obser cheryle size distr ibuti on of each syndr ome [per ISCA datab ase nstd3 7] and acros s the range of fract ions obser cheryle in routi ne clini kera NIPT. Actua l sensi tivit y can also be influ enced by other facto rs such as the size of the event , total seque nce count s, ampli ficat ion bias, or seque nce bias. ## Singl eton gesta tion only. Not Available [facility] ([facility]) [address] [facility], [place], [address], 05/21/2024 14:27:53 05/08/19 25 05/11/2024 MATER NIT21 PLUS CORE limitations of the test Commen t While the resul ts of these tests are highl y relia ble, disco rdant resul ts, inclu ding inacc urate sex predi ction , may occur due to place ntal, mater nal, or mosai cism or neopl asm; vanis zaira twin; prior mater nal organ trans plant ; or other cause s. These tests are scree daisha tests and not diagn ostic ; they do not repla ce the accur acy and preci duncan of prena tom diagn osis with CVS or amnio cente sis. A patie nt with a posit rey test resul t shoul d be refer red for raul ic couns eling and offer ed invas rey prena tom diagn osis for confi rmati on of test resul ts.[5 ] The resul ts of this testi ng, inclu ding the benef its and limit ation s, shoul d be discu ssed with a quali fied healt hcare provi doris. Pregn robert manag ement decis ions, inclu ding termi natio n of the pregn robert, shoul d not be based on the resul ts of these tests alone . The healt hcakait provi doris is respo nsibl e for the use of this infor matio n in the manag ement of their patie nt. Sex chrom osoma l aneup loidi es are not repor table for known multi ple gesta tions . A negat rey resul t does not ensur e an unaff ected pregn robert nor does it exclu de the possi bilit y of other chrom osoma l abnor malit ies or defec ts which are not a part of these tests . An uninf ormat rey resul t may be repor adán, the cause s of which may inclu de, but are not limit ed to, insuf ficie nt seque ncing cover age, noise or artif acts in the regio n, ampli ficat ion or seque ncing bias, or insuf ficie nt fract ion. These tests are not inten ded to ident tish pregn ancie s at risk for neura l tube defec ts or ventr al wall defec ts. Testi ng for whole chrom osome abnor malit ies (incl uding sex chrom osome s) and for subch romos omal abnor malit ies could lead to the poten tial disco very of both and mater nal genom ic abnor malit ies that could have major , minor , or no, clini kera signi fican ce. Evalu ating the signi fican ce of a posit rey or a non-r eport able resul t may invol ve both invas rey testi ng and addit ional studi es on the mothe r. Such inves tigat ions may lead to a diagn osis of mater nal chrom osoma l or subch romos omal abnor malit ies, which on occas ion may be assoc iated with benig n or malig nant mater nal neopl asms. These tests may not accur ately ident tish tripl oidy, patricia kyree rearr angem ents, or the preci se locat ion of subch romos omal dupli catio ns or delet ions; these may be detec adán by prena tom diagn osis with CVS or amnio cente sis. The abili ty to repor t resul ts may be impac adán by mater nal BMI, mater nal weigh t, mater nal syste benjy lupus eryth emato vaibhav (SLE) and/o r by certa in pharm aceut ical agent s such as low molec ular weigh t hepar in (for examp le: Loven ox(R) , Xapar in(R) , Clexa ne(R) and Fragm in(R) ). Not Available [facility] ([facility]) [address] [facility], [place], [address], 05/21/2024 14:27:53 05/08/19 25 05/11/2024 MATER NIT21 PLUS CORE note Commen t See Notes [employer] is a subsi diary of Labor atory Corpo ratio n of klever maguire, using the brand [employer]. This test was devel oped and its perfo rmanc e toni cteri stics deter mined by [employer]. It has not been clear ed or appro cheryle by the Food and Drug Admin istra tion. This labor atory is certi fied under the Clini kera Labor atory Impro vemen t Amend ments (CLIA ) as quali fied to perfo rm high compl exity clini kera labor atory testi ng and accre dited by the Colle keenan of [facility] can Patho logis ts (CAP) . If there is futur e clini kera need for addin g Mater niT GENOM E testi ng, this speci men will be avail able until term. [facility] sampl es will not be retai meredith radhan d 60 days. [facility] patie nts will have to send a new sampl e for re-se quenc ing (LCA Test Code: 91319 [id number]). Not Available [facility] ([facility]) [address] [facility], [place], [address], 05/21/2024 14:27:53 05/08/19 25 05/11/2024 MATER NIT21 PLUS CORE references Commen t 1. Fredy VAZQUEZ, et al. Raul Med. 2012; 14(3) :296- 305. 2. Jose LICEA, et al. Prena t Diag. 2013; 33(6) :591- 597. 3. Gregory C, et al. Clin Chem. 2015 May;6 1(4): 608-6 16. 4. Fredy VAZQUEZ, et al. Raul Med. 2011; 13(11 ):913 -920. 5. ACOG/ SMFM Pract ice Bulle tin No. 226, Nov 2019. Not Available [facility] ([facility]) [address] [facility], [place], [address], 05/21/2024 14:27:53 05/08/19 25 05/11/2024 MATER NIT21 PLUS CORE pdf . Not Available [facility] ([facility]) [address] [facility], [place], [address], 05/21/2024 14:27:53 05/08/1905/21/2024 INHER ITEST (R)CF / SMA PANEL genes Commen t 2 genes Not Available [facility] ([facility]) [address] [facility], [place], [address], 05/21/2024 14:27:54 05/08/19 25 05/21/2024 INHER ITEST (R)CF / SMA PANEL ethnicity Commen t Not Provi ded Not Available [facility] ([facility]) [address] [facility], [place], [address], 05/21/2024 14:27:54 05/08/19 25 05/21/2024 INHER ITEST (R)CF / SMA PANEL specimen type Commen t Whole Blood Not Available [facility] ([facility]) [address] [facility], [place], [address], 05/21/2024 14:27:54 05/08/19 25 05/21/2024 INHER ITEST (R)CF / SMA PANEL genetic counselor RISK CONSULTING TREASURY DIRECTOR Not Available [facility] ([facility]) [address] [facility], [place], [address], 05/21/2024 14:27:54 05/08/19 25 05/21/2024 INHER ITEST (R)CF / SMA PANEL indication Commen t Yu er Test / Scree daisha Not Available [facility] ([facility]) [address] [facility], [place], [address], 05/21/2024 14:27:54 05/08/19 25 05/21/2024 INHER ITEST (R)CF / SMA PANEL result: Commen t NEGAT REY Not Available [facility] ([facility]) [address] [facility], [place], [address], 05/21/2024 14:27:54 05/08/19 25 05/21/2024 INHER ITEST (R)CF / SMA PANEL interpretati on Commen t Negat rey Resul ts Disor ders (Gene ) Resul t Inter preta tion Cysti c fibro sis NEGAT REY This resul t reduc es, CFTR NM_00 0492. 4 but does not elimi enmanuel, the risk to be a yu er. Risk: NOT at an incre ased risk for an affec adán pregn robert. Spina l muscu lar NEGAT REY : 3 This resul t reduc es, atrop hy SMN1 (or more) but does not NM_00 0344. 4 copie s of elimi enmanuel, the risk SMN1. to be a yu er. Risk: NOT at an incre ased risk for an affec adán pregn robert. Not Available [facility] ([facility]) [address] [place], [address], 05/21/2024 14:27:54 05/08/19 25 05/21/2024 INHER ITEST (R)CF / SMA PANEL general comments RISK CONSULTING TREASURY DIRECTOR Not Available [facility] ([facility]) [address] [facility], [place], [address], 05/21/2024 14:27:54 05/08/19 25 05/21/2024 INHER ITEST (R)CF / SMA PANEL recommendati ons Commen t If the above resul t is posit rey, raul ic couns eling is recom traci d to discu ss the poten tial clini kera and/o r repro ducti ve impli catio ns, as well as recom menda tions for testi ng famil y membe rs and, when appli cable , this indiv idual 's partn er. Raul ic couns eliezekiel servi hamida are avail able. To acces s [facility] Raul ic Couns yaw alegria e visit [email or web address] :[email or web address] orp.[email or web address] om/ge netic -coun amy g or call ([email or web address]) GC-CA LLS ([phone]). Not Available [facility] ([facility]) [address] [facility], [place], [address], 05/21/2024 14:27:54 05/08/19 25 05/21/2024 INHER ITEST (R)CF / SMA PANEL additional clinicalinfo rmation RISK CONSULTING TREASURY DIRECTOR Not Available [facility] ([facility]) [address] [facility], [place], [address], 05/21/2024 14:27:54 05/08/19 25 05/21/2024 INHER ITEST (R)CF / SMA PANEL comments Commen t This inter preta tion is based on the clini kera infor matio n provi ded and the curre nt under stand ing of the molec ular raul ics of the disor doris(s ) teste d. Infor matio n about the disor doris(s ) teste d is avail able at [email or web address] :[email or web address] [email or web address] om. Not Available [facility] ([facility]) [address], [place], [address], 05/21/2024 14:27:54 05/08/19 25 05/21/2024 INHER ITEST (R)CF / SMA PANEL methods/limi tations Commen t Next- gener ation Seque ncing (NGS) : Genom ic regio ns of inter est are selec adán using the [employer] ience (R) hybri dizat ion captu re metho d and seque nced via the [employer](R ) NGS platf orm. Seque ncing reads are align ed to the human genom e refer ence GRCh3 7/hg1 9 build . Regio ns of inter est inclu de codin g exons , intro n/exo n junct ions (typi dot +/- 20 nucle otide s) and addit ional genom ic regio ns with known signi fican t patho genic varia nts. Khari tical sensi tivit y is estim ated to be >99% for singl e nucle otide varia nts and small inser tions /amador tions . Varia nt detec tion is perfo rmed by QIAGE N CLC Genom ics and in-ho use algor ithms . Singl e exon delet ions or dupli catio ns can be detec adán in the CFTR gene with estim ated overa ll khari tical sensi tivit y >99%. Preci se break point s are not repor adán. Singl e-exo n delet ions or dupli catio ns are not detec adán in some cases due to CNV size limit ation s, or due to isola adán data quali ty varia tion or intri nsic seque nce prope rties . Confi rmato ry testi ng by ortho gonal techn ologi es may inclu de Sange r seque ncing , or MLPA khari sis. Repor adán varia nts: Patho genic and likel y patho genic varia nts are repor adán for all tests . Varia nts of uncer tain signi fican ce are not repor adán for any Inher itest yu er panel or for Cysti c Fibro sis Full- gene Yu er Scree n. Varia nts of [facility] tain signi fican ce are repor adán with all GeneS eq PLUS test codes unles s VUS opt out is selec adán. Benig n and likel y benig n varia nts are not repor adán. Varia nts are speci fied using the numbe ring and nomen clatu re recom traci d by the Human Genom e Varia tion Socie ty (HGVS , http: //www .hgvs .org/ ). Varia nt class ifica tion and confi rmati on are consi stent with ACMG stand ards and guide lines (Rich ards, PMID: [id number]; Carmela, PMID: 51369 774). Detai led varia nt class ifica tion infor matio n and varia nt reeva luati on are avail able upon reque st. Spina l muscu lar atrop hy: The copy numbe r of SMN1 exon 7 is asses sed relat rey to inter nal stand whit refer ence genes by quant itati ve polym erase chain react ion (qPCR ). A mathe matic al algor ithm calcu lates 0, 1, 2 and 3 copie s with stati stica l confi dence . In speci mens and speci mens with 0 or 1 copie s, the prime r and probe guera ng sites are seque nced to rule out varia nts that could inter fere with copy numbe r khari sis. SMN2 copy numbe r is asses sed by digit al dropl et PCR khari sis relat rey to an inter nal stand whit refer ence gene in sampl es with no copie s of SMN1. For yu er scree daisha, when two copie s of SMN1 are detec adán, allel ic discr imina tion qPCR targe ting c.*3+ 80T>G in SMN1 is perfo rmed. Limit ation s: Techn ologi es used do not detec t germl ine mosai cism and do not rule out the prese nce of large chrom osoma l aberr ation s inclu ding rearr angem ents and gene fusio ns, or varia nts in regio ns or genes not inclu ded in this test, or possi ble inter /intr ageni c inter actio ns betwe en varia nts, or repea t expan sions . Varia nt class ifica tion and/o r inter preta tion may ribera e over time if more infor matio n becom es avail able. False posit rey or false negat rey resul ts may occur for reaso ns that inclu de: rare raul ic varia nts, sex chrom osome abnor malit ies, pseud ogene inter feren ce, blood trans fusio ns, bone marro w trans plant ation , somat ic or tissu e-spe cific mosai cism, misla beled sampl es, or isaac eous repre senta tion of famil y relat ionsh ips. This test was devel oped and its perfo rmanc e toni cteri stics deter mined by [employer] Raul ic [employer]. It has not been clear ed or appro cheryle by the Food and Drug Admin istra tion. [employer] mark Raul ic [employer] is a subsi diary of Labor atory Corpo ratio n of [employer], using the brand [employer]. Inher itest (R) and GeneS eq(R) are yamileth tered servi ce estrella of Labor atory Corpo ratio n of [employer] ngs. Not Available [facility] [address] [facility], [place], [address], 05/21/2024 14:27:54 05/08/19 25 05/21/2024 INHER ITEST (R)CF / SMA PANEL references Commen t Jose AR, Gabbi i M, Mar goldberg S et al. Scree daisha for autos omal reces sive and X-terry ked condi tions durin g pregn robert and preco ncept ion: a pract ice resou rce of the [employer] [facility] ge of Medic al Raul ics and Genom ics ([facility] ). Raul Med 23, 6769 (2020 ). PMID: [id number] Not Available [facility] ([facility]) [address] [facility], [place], [address], 05/21/2024 14:27:54 05/08/1905/21/2024 INHER ITEST (R)CF / SMA PANEL disorders tested Commen t Cysti c fibro sis (1 gene) . Autos omal reces sive: CFTR Spina l muscu lar atrop hy (1 gene) . Autos omal reces sive: SMN1 Not Available [facility] ([facility]) [address] [facility], [place], [address], 05/21/2024 14:27:54 05/08/19 25 05/21/2024 INHER ITEST (R)CF / SMA PANEL director review/relea se Commen t Mulino nent Type Perfo rmed At [employer] Techn ical Esote mark Raul estephania Waterman, PhD, compo nent, [employer], [employer] proce ssing [address] , [place], [address] Techn ical Esote mark Raul estephania Waterman, PhD, compo nent, [employer], [employer] khari sis [address] , [facility] [place], [address] Profe adinaon al Esote mark Raul estephania Waterman, PhD, compo nent [employer], [employer] [address] [place], [address] Alisa veras relea sed by Burak Chilel, PhD, [employer] Not Available [facility] ([facility]) [address] [facility], [place], [address], 05/21/2024 14:27:54 05/08/19 25 05/21/2024 INHER ITEST (R)CF / SMA PANEL pdf . Not Available [facility] ([facility]) [address] [facility], [place], [address], 05/21/2024 14:27:54 03/27/19 25 03/27/2024 US, obste tric, trans vagin al No observ ation record ed. [facility] [address], [place], [address], 04/02/2024 09:16:27 04/03/19 25 04/04/2024 US, obste tric, 1st trime ster No observ ation record ed. [email or web address] [address] [place] [address] , [place], [address], 04/05/2024 14:11:41 04/09/19 25 04/04/2024 US, obste tric, 1st trime ster No observ ation record ed. BARCODE [place] [employer] [address] [place] [address] , [place], [address], 04/08/2024 14:07:54 04/10/19 25 04/12/2024 [place], obste tric, 1st trime ster No observ ation record ed. [place] [employer] [address] [place] [address] , [place], [address], 04/15/2024 14:33:31 04/16/19 25 04/12/2024 [place], obste tric, 1st trime ster No observ ation record ed. [employer] [place] [employer] [address] [place] [address] , [place], [address], 04/15/2024 15:21:33 04/19/19 [place], obste tric, 1st trime ster No observ ation record ed. [email or web address] [place] [employer] [address] [place] [address] , [place], [address], 04/18/2024 13:51:18 04/19/19 25 04/18/2024 [place], obste tric, 1st trime ster No observ ation record ed. [employer] [place] [employer] [address] [place] [address] , [place], [address], 04/18/2024 15:00:12 04/23/19 [place], obste tric, limit ed No observ ation record ed. [email or web address] [employer] [address] [place] [address] , [place], [address], 04/22/2024 13:32:18 04/25/19 25 04/22/2024 [place], obste tric, limit ed No observ ation record ed. [employer] [place] [employer] [address] [place] [address] , [place], [address], 04/24/2024 13:17:34 05/08/19 25 05/07/2024 [place], obste tric, limit ed No observ ation record ed. [email or web address] [employer] [address] [place] [address] , [place], [address], 05/07/2024 15:42:37 05/09/19 25 05/07/2024 [place], obste tric, limit ed No observ ation record ed. [employer]CODE [place] [employer] [address] [place] [address] , [place], [address], 05/08/2024 16:58:53 05/16/19 25 05/15/2024 [place], obste tric, limit ed No observ ation record ed. [email or web address] [employer] [address] [place] [address] , [place], [address], 05/17/2024 09:38:21 05/23/19 25 05/15/2024 [place], obste tric, limit ed No observ ation record ed. [employer] [place] [employer] [address] [place] [address] , [place], [address], 05/22/2024 10:11:13 Result Notes None recorded. 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 [id number] Completed 06/23/2021 moderate dysplasi a/ext into endocerv ical glands Fariha Montelongo, [employer] [address], [place], [address] , [place] [facility] 15:06:32 Body mass index 25-29 - [place] 198584502 Active BMI: 28.3 starting wgt: 160 HgbA1c: 4.7 Christy Keller, [employer] [address], [place], [address] , [place] [facility] 5 08:34:55 Antenata l screenin g Completed Mat21- # and info given AFP- desires CF/SMA- drawn 11/22/23 Christy Keller [employer] [address], [place], [address] , [place] [facility] 4 18:39:51 Active immuniza tion Completed Covid- complete d Tdap- @30wks Flu- declined 11/22/23 Christy Keller, [employer] [address], [place], [address] , [place] [facility] 4 11:30:26 Contrace ption care manageme nt Completed ocp Christy Keller [employer] [address], [place], [address] , [place] [facility] 4 11:30:49 Body mass index 25-29 - [facility] [id number] Completed starting wgt: 151 BMI: 26.7 HgbA1c: 4.8 Christy Keller [employer] [address], [place], [address] , [place] [facility] 4 18:47:05 Recurren t miscarri age 543471701 Completed SAB in 2009 x3 SAB 2019 Progeste ross: 34.2 Christy Keller, [employer] [address], [place], [address] , [place] [facility] 4 18:46:34 History of growth retardat ion 73863632508 108 Completed 2011: IUGR Christy Keller APRN [address], [place], [address] , [place] [facility] 4 19:01:21 History of growth retardat ion 41614853245 108 Active 2010: IUGR [ ]growth u/s 28, 32, 36wks Christy Keller APRN [address], [place], [address] , [place] [facility] 5 11:40:43 Antenata l screenin g Completed Mat21- 46XX AFP- desires CF/SMA- 2023 negative Jaleesa Hewitt MD [address], [place], [address] , [place] [facility] 5 14:38:36 Active immuniza tion Completed Covid- x1, declined more Tdap- @30wks Flu- declined 04/09/24 Christy Keller APRN [address], [place], [address] , [place] [facility] 5 11:33:52 Body mass index 25-29 - over[place] 815984905 Completed BMI: 28.3 starting wgt: 160 HgbA1c: 4.7 Christy Keller APRN [address], [place], [address] , [place] [facility] 5 08:34:55 History of growth retardat ion 43447731758 108 Completed 2010: IUGR [ ]growth u/s 28, 32, 36wks Christy Keller APRN [address], [place], [address] , [place] [facility] 5 11:40:43 Nausea and vomiting 48624584 Completed 04/09/24: manageab le, declined medicati on Christy Keller APRN [address], [place], [address] , [place] [facility] 5 11:31:51 Vaginal delivery followin g previous section 076892919 Completed [address] Christy Keller APRN [address], [place], [address] , [place] [facility] 5 11:35:38 Vaginal delivery followin g previous section 610039360 Active [address] Christy Keller APRN [address], [place], [address] , [place] [facility] 5 11:35:37 Pregnanc y 67807699 Completed 201606/06/2016 Mars Hansen RN [address], [place], [address] , [place] [facility] 5 09:14:20 Anemia 283643474 Active 2018 Christy JOLENE Keller [address], [place], [address] , [place] [facility] 4 11:23:55 Vitamin D deficien cy 26515190 Active 2018 Christynova Keller APRN [address], [place], [address] , [place] [facility] 4 11:24:48 Generali zed anxiety disorder 53425400 Active 2020 Christynova Keller APRN [address], [place], [address] , [place] [facility] 4 11:24:40 Cystocel e 875523471 Completed 202111/22/2023 Christynova Keller APRN [address], [place], [address] , [place] [facility] 4 11:29:29 Herniati on of rectum into vagina 574638286 Active 2021 Christynova Keller APRN [address], [place], [address] , [place] [facility] 4 11:24:44 Pregnanc y 67779926 Completed 202301/15/2024 Mars Hansen RN [address], [place], [address] , [place] [facility] 5 09:14:20 Vaginal delivery followin g previous section 449867942 Completed [address] Christy Keller APRN [address], [place], [address] , [place] [facility] 4 18:34:59 Supervis ion of high risk pregnanc y with history of previous section done 33264087531 106 Completed 2023 stat c/s, she has had 2 succesfu l deliveri es since Christynova Keller, [employer] [address], [place], [address] , [place] [facility] 4 18:33:44 Past pregnanc y history of prematur e delivery 370724605 Completed 2023 2015: 34wk delivery , stat c/s, LST incision Christy Keller, [employer] [address], [place], [address] , [place] [facility] 4 18:33:13 [place] ht 963764914 Active 2023 Christynova Keller APRN [address], [place], [address] , [place] [facility] 5 11:21:03 Abnormal uterine bleeding 61949754024 100 Completed 202404/09/2024 Christynova Keller APRN [address], [place], [address] , [place] [facility] 5 11:20:58 Pregnanc y 28953411 Completed 202405/24/2024 Mars Hansen RN [address], [place], [address] , [place] [facility] 5 09:14:20 Past pregnanc y history of ectopic pregnanc y 079386951 Active 2024 Christy Keller APRN [address], [place], [address] , [place] [facility] 5 11:32:48 Past pregnanc y history of ectopic pregnanc y 549716711 Completed 2024 Christy Keller APRN [address], [place], [address] , [place] [facility] 5 11:32:48 Past pregnanc y history of miscarri age 565542169 Active 2024x3 SAB at home 2023 D&C at [facility] Christynova Keller APRN [address], [place], [address] , [place] [facility] 5 11:32:38 Past pregnanc y history of miscarri age 313254830 Completed 2024 2010x3 SAB at home 2023 D&C at [facility] Christy Keller, [employer] [address], [place], [address] , [place] [facility] 5 11:32:38 Supervis ion of high risk pregnanc y with history of previous section done 04994323070 106 Active 2024 P c/s 2014, 2016 and 201904/09/24: undecide d about repeat c/s or Christy Keller APRN [address], [place], [address] , [place] [facility] 5 11:41:01 Supervis ion of high risk pregnanc y with history of previous section done 82857559918 106 Completed 2024 P c/s 2014, 2016 and 201904/09/24: undecide d about repeat c/s or Christy Keller APRN [address], [place], [address] , [place] [facility] 5 11:41:01 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 [ ]need to discuss and confirm no hx of genital lesions Christy Keller APRN [address], [place], [address] , [place] [facility] 5 11:50:51 Herpes simplex type 1 infectio n 665543374 Completed 2024 2 serum drawn and +, HSV2 serum negative This report is in [facility]- found it after pt checked out of obhx appt. [ ]need to discuss and confirm no hx of genital lesions Christy Keller APRN [address], [place], [address] , [place] [facility] 5 11:50:51 Nausea and vomiting in pregnanc y Active 2024 Yanna Grace, DO [address], [place], [address] , [place] [facility] 13:56:26 Problem Notes None recorded. Procedures Surgical History Date Name Laterality Status Provider Name and Address Organization Details Recorded Time 025 OB Ultrasound Summary completed Shairadha Solisant [place] - [facility] 05/15/2024 15:48:37 025 OB Ultrasound Summary completed Shairadha Hall [place] [facility] 05/07/2024 13:49:36 025 OB Ultrasound Summary completed Heradha Solisant [place] [facility] 04/22/2024 12:52:10 025 OB Ultrasound Summary completed Shairadha Hall [place] [facility] 04/18/2024 13:02:35 025 OB Ultrasound Summary completed Shairadha [place] [facility] 04/12/2024 13:24:50 025 OB Ultrasound Summary completed Shairadha [place] [facility] 04/04/2024 15:46:58 025 Medication Reconcilliation cancelled Macarena Gurrola [place] [facility] 02/19/2024 12:15:34 024 dilation and curettage of uterus completed Mars Hansen RN [address], [place], [address], [place] [facility] 01/15/2024 11:12:51 024 OB Ultrasound Summary completed Shairadha Hall [place] [facility] 12/21/2023 14:07:00 024 OB Ultrasound Summary completed Shairadha Hall [place] [facility] 12/15/2023 13:57:57 024 OB Ultrasound Summary completed Cassia Sanabria [place] [facility] 12/11/2023 13:24:39 024 OB Ultrasound Summary completed Betty Hall [place] [facility] 12/04/2023 16:23:25 024 OB Ultrasound Summary completed Heradha Hall [place] [facility] 12/01/2023 11:42:32 023 OB Ultrasound Summary completed Betty Hall [place] [facility] 08/24/2022 11:19:32 023 Date of Last Pap Smear completed No Parisler [place] [facility] 03/12/2024 17:14:31 021 Systolic B/P less than 130 mm Hg completed Crystal Chi [place] [facility] 04/16/2020 10:13:38 021 Diastolic B/P less than 80 mm Hg completed Crystal Chi [place] [facility] 04/16/2020 10:13:39 020 Systolic B/P less than 130 mm Hg completed Crystal Chi [place] [facility] 07/15/2019 10:08:41 020 Diastolic B/P less than 80 mm Hg completed Crystal Chi [place] [facility] 07/15/2019 10:08:43 017 LEEP completed Tete Stears [place] [facility] 09/02/2016 14:37:10 017 Dilation and Curettage, sharp completed Tete Stears [place] [facility] 09/02/2016 14:46:52 017 Colposcopy completed Tete Stears [place] [facility] 09/02/2016 14:43:56 017 Colposcopy completed Tete Stears [place] [facility] 09/02/2016 14:42:06 017 Dilation and Curettage, suction completed Tete Stears [place] [facility] 09/02/2016 14:52:48 015 delivery completed Tete Stears [place] [facility] 06/06/2016 09:12:36 Ear Tubes - Tympanostomy Tubes completed Crystal Chi [place] [facility] 04/19/2016 09:31:45 Imaging Results None recorded. Procedure Notes None recorded. Medical Equipment None Reported. Allergies Allergen ID Allergen Name Allergen Category Reaction Reaction Severity Criticality Documentation Date Start Date Code Code System Note Provider Name and Address Organization Details Recorded Time 20002 [employer] Sep 2005 medicatio n Not available Not available Not available 11/13/20152007 04044 8 RxNorm Not Available [facility] 6 08:15:23 03550 cigarette smoke environme nt Not available Not available Not available 11/13/20152007 96435 [facility] Julia Raines null, [place] - [facility] 2 15:43:49 Medications Name Sig Start Date Stop Date Status Note LastModified by Organization Details LastModified Time miconazol e 7 2% cre APPLY 1 APPLICAT ORFUL VAGINALL Y ONCE DAILY FOR 7 DAYS 03/12 completed Not Available Not Available Not Available amoxicill in 500 mg capsule take 1 capsule (500 mg) by oral route every 8 hours for 10 days 05/08 completed amoxicil terry 500 mg oral capsule; Recorded Status: Recorded on: 03/30/19 10 11:17AM; Disconti nued Status: Disconti nued on: 05/09/19 10 2:45PM;U ser: [email or web address]; Est. Completi on: 04/10/19 10;Indic ation: Acute Bacteria l Sinusiti s - (08.4619 00);Prin adán: 03/30/19 10 Not Available Not Available Not Available medroxypr ogesteron e 10 mg tablet 09/02 completed Not Available Not Available Not Available buspirone 5 mg tablet TAKE 1 TABLET BY MOUTH THREE TIMES DAILY NEEDED 04/02 completed Not Available Not Available Not Available terconazo le 0.4 % vaginal cream Insert 1 applicat orful every day by vaginal route for 7 days. active Not Available Not Available No t Available Anbesol (benzocai ne) Maximum Strength 20 % mucosal gel apply by oral route 4 times a day 03/17 completed Anbesol (benzoca ine) Max Str 20 % mucous membrane gel;Carlos rded Status: Recorded on: 03/09/19 10 12:06PM; Disconti nued Status: Disconti nued on: 03/17/19 10 2:46PM;U ser: gillisa; Printed: 03/09/19 10 Not Available Not Available Not Available Colace 100 mg capsule take 1 capsule (100 mg) by oral route 2 times per day for 30 days 02/17 completed Colace 100 mg oral capsule; Prescrib e Status: Prescrib ed on: 01/21/20 14 9:48AM;D iscontin ued Status: Disconti nued on: 02/17/19 15 8:21AM;U ser: kerrs;Es t. Completi on: 08/19/19 15;Indic ation: Constipa tion - (564.00) ;Pharmac yVerifie d: 01/21/20 14 9:48AM Not Available Not Available Not Available potassium chloride ER 10 mEq capsule,e xtended release bid 09/10 completed zuleykaassiu m chloride 10 mEq oral capsule, extended release; Recorded Status: Recorded on: 10/18/19 13 10:00AM; Disconti nued Status: Disconti nued on: 09/11/19 14 3:09PM;U ser: granth Not Available Not Available Not Available paroxetin e 10 mg tablet Take 1 tablet every day by oral route for 30 days. 07/14 completed Not Available Not Available Not Available Vitamin B-6 25 mg tablet Take 1 tablet every 8 hours by oral route. active Not Available Not Available No t Available clindamyc in HCl 300 mg capsule Take 1 capsule twice a day by oral route for 10 days. 09/02 completed Not Available Not Available Not Available citalopra m 40 mg tablet half tab po q am 01/08 completed citalopr am 40 mg oral tablet;R ecorded Status: Recorded on: 02/11/19 09 2:09PM;D iscontin ued Status: Disconti nued on: 01/09/20 09 3:05PM;U ser: [email or web address] Not Available Not Available Not Available azithromy john 250 mg tablet TAKE 2 TABLETS (500 MG) BY ORAL ROUTE ONCE DAILY FOR 1 DAY THEN 1 TABLET (250 MG) BY ORAL ROUTE ONCE DAILY FOR 4 DAYS 04/02 completed Not Available Not Available Not Available ibuprofen 800 mg tablet TAKE ONE TABLET BY MOUTH EVERY 8 HOURS NEEDED FOR PAIN --TAKE WITH FOOD-- 03/12 completed Not Available Not Available Not Available fluconazo le 150 mg tablet 06/08 completed Not Available Not Available Not Available hydrocodo ne 5 mg-acetam inophen 325 mg tablet TAKE ONE TABLET BY MOUTH EVERY 6 HOURS NEEDED FOR PAIN MAY CAUSE DROWSINE SS 03/12 completed Not Available Not Available Not Available Darvocet- N 100 100 mg-650 mg tablet take 1 tablet by oral route every 6 hours as needed for pain for 30 days 08/20 completed Darvocet -N 100 100-650 mg oral tablet;R ecorded Status: Recorded on: 06/11/19 10 2:06PM;D iscontin ued Status: Disconti nued on: 08/21/19 10 11:06AM; User: calvom;E st. Completi on: 07/11/19 10;Indic ation: Pain - () Not Available Not Available Not Available promethaz ine 12.5 mg tablet TAKE 1 TABLET BY MOUTH 4 TIMES DAILY NEEDED active Not Available Not Available No t Available Aplisol 5 tub. unit/0.1 mL intraderm al injection solution Inject 0.1 mL by intrader mal route. 09/18 completed Not Available Not Available Not Available prednison e 20 mg tablet Take 1 tablet twice a day by oral route for 5 days. 07/16 completed Not Available Not Available Not Available naproxen 250 mg tablet Take 1 tablet twice a day by oral route for 5 days. 07/16 completed Not Available Not Available Not Available metronida zole 500 mg tablet take 1 tablet (500 mg) by oral route every 12 hours for 7 days 02/18 completed Not Available Not Available Not Available oxcarbaze pine 300 mg tablet TAKE 1 TABLET BY MOUTH TWICE DAILY 03/07 completed Not Available Not Available Not Available phentermi ne 37.5 mg tablet Take 1 tablet every day by oral route. 04/05 completed receives thru [facility] in [facility] e Not Available Not Available Not Available acetamino phen 300 mg-codein e 30 mg tablet 03/23 completed Not Available Not Available Not Available Naprosyn 375 mg tablet 02/11 completed Naprosyn 375 mg oral tablet;R ecorded Status: Recorded on: 10/30/19 08 2:32PM;D iscontin ued Status: Disconti nued on: 02/11/19 09 2:09PM;U ser: burtont; Indicati on: Pain - () Not Available Not Available Not Available sulfameth oxazole 800 mg-trimet hoprim 160 mg tablet TAKE 1 TABLET BY MOUTH TWICE DAILY 11/10 completed Not Available Not Available Not Available amoxicill in 500 mg tablet take 1 tablet (500 mg) by oral route every 8 hours for 10 days 01/08 completed amoxicil terry 500 mg oral tablet;R ecorded Status: Recorded on: 12/26/19 09 5:05PM;D iscontin ued Status: Disconti nued on: 01/09/20 09 3:05PM;U ser: gored;Es t. Completi on: 01/05/20 09;Indic ation: Acute Bacteria l Sinusiti s - (46) Not Available Not Available Not Available ketorolac 10 mg tablet TAKE 1 TABLET BY MOUTH EVERY 6 HOURS NEEDED FOR MODERATE PAIN. MAX DOSE OF 4 TABS DAILY 03/12 completed Not Available Not Available Not Available Miconazol e-7 2 % vaginal cream Insert 1 applicat orful every day by vaginal route for 7 days. 12/20 completed Not Available Not Available Not Available meloxicam 7.5 mg tablet TAKE 1 TABLET BY MOUTH ONCE DAILY 12/10 completed Not Available Not Available Not Available Zofran 4 mg tablet as needed 09/11 completed Zofran (as hydrochl oride) 4 mg oral tablet;R ecorded Status: Recorded on: 08/21/19 10 11:06AM; Disconti nued Status: Disconti nued on: 09/12/19 10 10:20AM; User: aster Not Available Not Available Not Available oxycodone -acetamin ophen 5 mg-325 mg tablet 04/16 completed Not Available Not Available Not Available Metrogel Vaginal 0.75 % (37.5 mg/5 gram) insert 1 applicat orful (37.5 mg) by vaginal route once daily at bedtime for 5 days 09/14 completed Metrogel Vaginal 0.75 % vaginal gel;Pres cribe Status: Prescrib ed on: 08/16/19 13 10:17AM; Disconti nued Status: Disconti nued on: 09/15/19 13 9:00AM;U ser: granth;E st. Completi on: 08/21/19 13;Pharm acyVerif ied: 08/16/19 13 10:17AM Not Available Not Available Not Available potassium chloride ER 20 mEq tablet,ex tended release(p art/cryst ) TAKE 2 TABLETS BY MOUTH TWICE DAILY 04/16 completed Not Available Not Available Not Available famotidin e 20 mg tablet Take 1 tablet twice a day by oral route. active Not Available Not Available No t Available omeprazol e 10 mg capsule,d elayed release Take 1 capsule every day by oral route. 04/16 completed OTC Not Available Not Available Not Available lorazepam 0.5 mg tablet take 1-2 tablets PO daily prn for panic attack 07/14 completed Not Available Not Available Not Available promethaz ine 12.5 mg rectal supposito ry Insert 1 supposit ory every 4-6 hours by rectal route as needed. 2024 active Not Available Not Available Not Avai lable dicyclomi ne 20 mg tablet TAKE 1 TABLET BY MOUTH 4 TIMES DAILY 10/28 completed Not Available Not Available Not Available baclofen 10 mg tablet Take 1 tablet twice a day by oral route as needed for 30 days. 04/05 completed Not Available Not Available Not Available cephalexi n 500 mg capsule TAKE 1 CAPSULE BY MOUTH THREE TIMES DAILY 11/10 completed Not Available Not Available Not Available pantopraz ole 40 mg tablet,de layed release 03/12 completed Not Available Not Available Not Available Micronor (28) 0.35 mg tablet take 1 tablet by oral route once daily 09/10 completed Micronor (28) 0.35 mg oral tablet;P rescribe Status: Prescrib ed on: 10/18/19 13 10:30AM; Disconti nued Status: Disconti nued on: 09/11/19 14 3:09PM;U ser: [email or web address] ;Indicat ion: Pregnanc y Contrace ption - (18.V259 00);Phar Tiffanie fied: 10/18/19 13 10:30AM Not Available Not Available Not Available oseltamiv ir 75 mg capsule TAKE 1 CAPSULE BY MOUTH TWICE DAILY FOR 5 DAYS 06/08 completed Not Available Not Available Not Available ferrous sulfate 325 mg (65 mg iron) tablet take 1 tablet by oral route 2 times a day for 30 days with food 03/23 completed ferrous sulfate 325 mg (65 mg iron) oral tablet;P rescribe Status: Prescrib ed on: 04/16/19 15 8:34AM;D iscontin ued Status: Disconti nued on: 12/20/19 15 3:11PM;U ser: [email or web address]; Est. Completi on: 08/14/19 15;Pharm acyVkleverf ied: 04/16/19 15 8:34AM Not Available Not Available Not Available ranitidin e 150 mg tablet take 1 tablet (150 mg) by oral route 2 times per day for 30 days 12/19 completed ranitidi ne HCl 150 mg oral tablet;P rescribe Status: Prescrib ed on: 01/09/20 14 9:17AM;D iscontin ued Status: Disconti nued on: 12/20/19 15 3:11PM;U ser: lorri;Es t. Completi on: 08/07/19 15;Indic ation: Gastroes ophageal Reflux - (5308 10);Phar Tiffanie fied: 01/09/20 14 9:17AM Not Available Not Available Not Available buspirone 10 mg tablet Take 1 tablet twice a day by oral route for 30 days. 03/12 completed Not Available Not Available Not Available lansopraz ole 30 mg capsule,d elayed release take 1 capsule (30 mg) by oral route once daily before a meal for 30 days 09/14 completed lansopra zole 30 mg oral capsule, delayed release( /EC);P rescribe Status: Prescrib ed on: 08/02/19 13 10:50AM; Disconti nued Status: Disconti nued on: 09/15/19 13 9:00AM;U ser: kerrs;Es t. Completi on: 10/31/19 13;Indic ation: Gastroes ophageal Reflux - (5308 10);Phar Tiffanie fied: 08/02/19 13 10:50AM Not Available Not Available Not Available promethaz ine 25 mg tablet take 1/2 (12.5mg) tablet by oral route q 4-6hrs prn nausea 06/08 completed Not Available Not Available Not Available progester one micronize d 200 mg capsule TAKE 1 CAPSULE BY MOUTH ONCE DAILY AT BEDTIME active Not Available Not Available No t Available omeprazol e 20 mg capsule,d elayed release Take 1 capsule every day by oral route. 06/23 completed Not Available Not Available Not Available Zofran ODT 8 mg disintegr ating tablet take 1 tablet (8 mg) and place on top of the tongue where it will dissolve , then swallow by oral route every 8 hours 02/17 completed Zofran ODT 8 mg oral tablet,d isintegr ating;Pr escribe Status: Prescrib ed on: 12/04/19 14 6:06PM;D iscontin ued Status: Disconti nued on: 02/17/19 15 8:21AM;U ser: youngk;P harmacyV erified: 12/04/19 14 6:06PM Not Available Not Available Not Available monteluka st 10 mg tablet 06/23 completed Not Available Not Available Not Available dexametha sone sodium phosphate 4 mg/mL injection solution Take 1 mL by injectio n route. 03/23 completed Not Available Not Available Not Available ibuprofen 600 mg tablet 06/23 completed Not Available Not Available Not Available methylpre dnisolone 4 mg tablets in a dose pack TAKE BY MOUTH DIRECTED ON INSIDE OF PACKAGE 09/09 completed Not Available Not Available Not Available gentamici n 0.3 % (3 mg/gram) eye ointment apply a small amount (1/2 inch) the lower lid of both eyes by ophthalm ic route 2 times per day 03/17 completed gentamic in 0.3 % (3 mg/gram) ophthalm ic ointment ;Recorde d Status: Recorded on: 01/09/20 09 3:37PM;D iscontin ued Status: Disconti nued on: 03/17/19 10 2:46PM;U ser: [email or web address];In dication : Bacteria l Conjunct ivitis - (3723 );Prin adán: 01/09/20 09 Not Available Not Available Not Available Vitamin D2 1,250 mcg (50,000 unit) capsule Take 1 capsule every week by oral route for 90 days. 07/14 completed Not Available Not Available Not Available ondansetr on 4 mg disintegr ating tablet one tab po q 8 hrs prn nausea/v omitting 03/12 completed Not Available Not Available Not Available cefdinir 300 mg capsule 06/08 completed Not Available Not Available Not Available fluticaso ne propionat e 50 mcg/actua tion nasal spray,vaibhav pension [place] 1 spray every day by intranas al route. 03/07 completed Not Available Not Available Not Available naproxen 500 mg tablet TAKE 1 TABLET BY MOUTH EVERY 12 HOURS NEEDED 06/08 completed Not Available Not Available Not Available metoclopr amide 10 mg tablet 04/09 completed Not Available Not Available Not Available amoxicill in 875 mg-potass ium clavulana te 125 mg tablet take 1 tablet by oral route every 12 hours for 10 days 03/23 completed Not Available Not Available Not Available Ventolin HFA 90 mcg/actua tion aerosol inhaler 06/23 completed Not Available Not Available Not Available cyclobenz aprine 5 mg tablet TAKE 1 TABLET BY MOUTH THREE TIMES DAILY NEEDED FOR MUSCLE SPASM FOR 5 DAYS 06/17 completed Not Available Not Available Not Available fiber oral powder use as directed 09/10 completed fiber Oral Powder;R ecorded Status: Recorded on: 10/18/19 13 10:00AM; Disconti nued Status: Disconti nued on: 09/11/19 14 3:09PM;U ser: grant Not Available Not Available Not Available Tri-Sprin glenda (28) 0.18 mg(7)/0.2 15 mg(7)/0.2 5 mg(7)-0.0 35 mg tablet 07/14 completed Not Available Not Available Not Available nitrofura ntoin monohydra te/macroc rystals 100 mg capsule TAKE 1 CAPSULE BY MOUTH TWICE DAILY FOR 5 DAYS. MUST ADMINIST ER WITH A MEAL/RODRIGUE D 06/08 completed Not Available Not Available Not Available 27 mg iron-0.8 mg tablet take 1 tablet by oral route once daily for 30 days 03/23 completed 27-0.8 mg oral tablet;P rescribe Status: Prescrib ed on: 12/04/19 14 6:06PM;D iscontin ued Status: Disconti nued on: 12/20/19 15 3:11PM;U ser: [email or web address];E st. Completi on: 11/29/19 15;Indic ation: Pregnanc y - (18.V222 00);Phar Tiffanie fied: 12/04/19 14 6:06PM Not Available Not Available Not Available potassium chloride take 1 tablet daily 06/23 completed Not Available Not Available Not Available 12/03 completed oral;Rec orded Status: Recorded on: 12/04/19 14 5:33PM;D iscontin ued Status: Disconti nued on: 12/04/19 14 6:01PM;U ser: [email or web address] Not Available Not Available Not Available Vitamin active Not Available Not Available Not Available Sronyx 0.1 mg-20 mcg tablet take 1 tablet by oral route once daily for 28 days 05/08 completed Sronyx 0.1-20 mg-mcg oral tablet;R ecorded Status: Recorded on: 03/17/19 10 3:20PM;D iscontin ued Status: Disconti nued on: 05/09/19 10 2:45PM;U ser: [email or web address];E st. Completi on: 07/08/19 10;Indic ation: Pregnanc y Contrace ption - (18.V259 00);Prin adán: 03/17/19 10 Not Available Not Available Not Available cholecalc iferol (vitamin D3) 1,250 mcg (50,000 unit) capsule TAKE 1 CAPSULE BY MOUTH ONCE A WEEK 06/08 completed Not Available Not Available Not Available Diclegis 10 mg-10 mg tablet,de layed release take 1 tablet by oral route in the morning and 2 tablets at bedtime for 30 days 02/17 completed Diclegis 10-10 mg oral tablet,d elayed release (/EC); Recorded Status: Recorded on: 01/09/20 14 9:16AM;D iscontin ued Status: Disconti nued on: 02/17/19 15 8:21AM;U ser: [email or web address];Es t. Completi on: 02/07/19 15;Indic ation: Nausea With Vomiting - (787.01) Not Available Not Available Not Available Gardasil 9 (PF) 0.5 mL intramusc ular suspensio n 03/23 completed Not Available Not Available Not Available Vitals Date Recorded Body height Body mass index (BMI) Body weight Pain severity - 0-10 verbal numeric rating [Score] - Reported Systolic And Diastolic Provider Name and Address Organization Details Last Updated DateTime 04/12/2024 160.02 cm 27.8 kg/m2 13038.00 209 g 0 110/78 mm[Hg] Julia Bearden [facility] 13:49:47 Date Recorded Body height Body weight Body mass index (BMI) Systolic And Diastolic Provider Name and Address Organization Details Last Updated DateTime 04/18/2024 160.02 cm 97425.88 g 28 kg/m2 110/72 mm[Hg] Julia Pham [facility] 04/18/2024 13:16:23 Date Recorded Body height Body mass index (BMI) Body weight Pain severity - 0-10 verbal numeric rating [Score] - Reported Systolic And Diastolic Provider Name and Address Organization Details Last Updated DateTime 04/22/2024 160.02 cm 28.1 kg/m2 93658.03 1408 g 0 112/80 mm[Hg] Juliaflorence [facility] 13:20:44 Date Recorded Body height Pain severity - 0-10 verbal numeric rating [Score] - Reported Body mass index (BMI) Body weight Systolic And Diastolic Provider Name and Address Organization Details Last Updated DateTime 05/07/2024 160.02 cm 0 28.5 kg/m2 87808.37 157 g 118/80 mm[Hg] Juliaflorence Landerosmons [facility] 13:56:38 Date Recorded Body height Body mass index (BMI) Body weight Pain severity - 0-10 verbal numeric rating [Score] - Reported Systolic And Diastolic Provider Name and Address Organization Details Last Updated DateTime 05/15/2024 160.02 cm 28.6 kg/m2 21601.81 g 4 116/76 mm[Hg] Julia Bearden [place] - [facility] 16:01:45 Social History Question Answer Notes LastModified by Organization Details LastModified Time Tobacco Smoking Status Never Smoker Monik stratton [place] - [facility] 04/19/2016 09:30:41 Able To Swim? Yes Information not available 04/19/2016 Do You Have An Advance Directive? No Information not available 09/02/2016 Do You Wear A Helmet When Biking? No Information not available 04/19/2016 Are You Blind Or Do You Have Difficulty Seeing? No Information not available 04/19/2016 Is Blood Transfusion Acceptable In An Emergency? Yes Information not available 09/02/2016 What Is Your Level Of Caffeine Consumption? Moderate Information not available 04/19/2016 How Much Tobacco Do You Chew? None Information not available 09/02/2016 In The 14 Days Before Symptom Onset, Have You Had Close Contact With A Laboratory-confi rmed COVID-19 While That Case Was Ill? No [email or web address] Information not available 11/22/2023 In The 14 Days Before Symptom Onset, Have You Had Close Contact With A Person Who Is Under Investigation For COVID-19 While That Person Was Ill? No [email or web address] Information not available 11/22/2023 Have You Been To An Area Known To Be High Risk For COVID-19? No [email or web address] Information not available 11/22/2023 Are You Deaf Or Do You Have Serious Difficulty Hearing? No Information not available 04/19/2016 What Type Of Diet Are You Following? REGULAR Information not available 08/23/2016 Which Illicit Or Recreational Drugs Have You Used? Denies [email or web address] Information not available 08/23/2016 Have You Processed Blood Or Body Fluids From An Ebola Virus Disease Patient Without Appropriate PPE? No [email or web address] Information not available 11/22/2023 Do You Reside In Or Have You Traveled To An Area Where Ebola Virus Transmission Is Active? No [email or web address] Information not available 11/22/2023 What Is The Highest Grade Or Level Of School You Have Completed Or The Highest Degree You Have Received? DI14043-2 Information not available 06/16/2023 Swimming/diving Yes [email or web address] Informa tion not available 08/23/2016 Have There Been Any Changes To Your Family Or Social Situation? No Information not available 06/16/2023 Hard Of Hearing Or Deaf In One Or Both Ears? No Information not available 04/19/2016 Have You Recently Or Are You Planning To Travel To An Area With Zika Virus? No [email or web address] Information not available 11/22/2023 Legally Blind In One Or Both Eyes? No Information not available 04/19/2016 Live Alone Or With Others? With Others Information not available 04/19/2016 Do You Have A Medical Power Of Forepart Reducer? No Information not available 06/16/2023 What Was The Date Of Your Most Recent Tobacco Screening? 03/12/2024 Non Smoker [email or web address] Information not available 03/12/2024 How Many Children Do You Have? 5 [email or web address] Information not available 04/30/2020 Performs Monthly Self-breast Exam? No Information not available 09/02/2016 Do You Use Protection During Sex? No [email or web address] Information not available 04/30/2020 What Is Your Relationship Status? [email or web address] Information not available 11/22/2023 Seat Belts Used Routinely Yes Information not available 04/19/2016 Are You Sexually Active? Yes Information not available 04/19/2016 Smoke Alarm In Home Yes [email or web address] Information not available 08/23/2016 Do You Have Smoke And Carbon Monoxide Detectors In Your Home? Yes Information not available 06/16/2023 How Much Tobacco Do You Smoke? No [email or web address] Information not available 04/30/2020 General Stress Level Low Information not available 04/30/2020 Do You Use Sunscreen Routinely? Yes [email or web address] Information not available 08/23/2016 Has Tobacco Cessation Counseling Been Provided? No [email or web address] Information not available 10/28/2021 How Many Years Have You Smoked Tobacco? 0 Information not available 04/30/2020 Do You Have Difficulty Walking Or Climbing Stairs? No Information not available 04/19/2016 What Contraceptive Method Was Reported At Start Of This Visit? None [email or web address] Information not available 06/27/2022 What Contraceptive Method Was Reported At End Of This Visit? None [email or web address] Information not available 06/27/2022 Do You Want To Talk About Contraception Or Prevention During Your Visit Today? No - I Do Not Want To Talk About Contraception Today Because I Am Here For Something Else [email or web address] Information not available 06/27/2022 Do You Have Any Future Plans To Get ? No, I Don't Want To Become [email or web address] Information not available 06/27/2022 What Is Your Reason For Having No Contraceptive Method At Start Of This Visit? Other [email or web address] Information not available 11/22/2023 What Is Your Reason For Having No Contraceptive Method At End Of This Visit? Other [email or web address] Information not available 11/22/2023 Sex: Female Functional Status Question Answer Note LastModified by [email or web address] ion Details LastModified Time Do you or have you ever used smokeless tobacco? Never used smokeless tobacco [email or web address] Information not available 04/30/2020 Are you currently employed? Yes Information not available 11/22/2023 Do you have transportation difficulties? No Information not available 06/16/2023 Urinary incontinence assessment performed? Yes [email or web address] Information not available 04/30/2020 Are you able to care for yourself independently? Yes Information not available 04/19/2016 Do you have difficulty dressing, bathing, grooming, or toileting? No Information not available 04/19/2016 Do you or have you ever used e-cigarettes or vape? Never used electronic cigarettes [email or web address] Information not available 04/30/2020 What is your exercise level? Occasional [email or web address] Information not available 08/23/2016 Do you use any illicit or recreational drugs? No Information not available 06/16/2023 Do you or have you ever used any other forms of tobacco or nicotine? No Information not available 06/16/2023 What is your level of alcohol consumption? None Information not available 11/22/2023 What is your status? [email or web address] Information no t available 11/22/2023 Are you able to walk? YESWOREST [email or web address] Information not available 08/23/2016 Do you have difficulty doing errands alone? No Information not available 04/19/2016 What is your occupation? [employer] Information not available 11/22/2023 Mental Status Question Answer Note LastModified by Organization D etails LastModified Time Do you have difficulty concentrating, remembering or making decisions? No Information no t available 04/19/2016 Family History Relationship Description Onset Age of this Age Resolved Age Notes LastModified by Organization Details LastModified Time Father Arthritis Not availabl e 04/19/2016 09:29:47 Father Type 2 diabetes mellitus [email or web address] Not available 2024 10:44:12 Father Hypertensive disorder Not available 2016 09:30:25 Father Family history of stroke [email or web address] Not available 2024 10:44:12 Father Heart disease Not available 2018 11:24:23 Mother Arthritis Not availabl e 04/19/2016 09:29:47 Mother Type 2 diabetes mellitus [email or web address] Not available 2024 10:44:12 Mother Disorder of thyroid gland Not available 2018 11:22:38 Mother Chronic hepatic failure 58 [email or web address] Not available 2024 10:44:12 Maternal Grandmother Type 2 diabetes mellitus [email or web address] Not available 2024 10:44:12 Maternal Grandmother Disorder of thyroid gland Not available 2018 11:22:38 Paternal Grandmother Type 2 diabetes mellitus [email or web address] Not available 2024 10:44:12 Sister Disorder of thyroid gland Not available 2018 11:22:38 Maternal Grandfather Aneurysm [email or web address] Not available 04/09 10:44:12 Medical History Condition Response Pancreatitis N Other N Atrial Fibrillation N congenital heart disease N Blood Diseases N Hyperthyroidism N Rheumatoid arthritis N Blood Transfusion N Erectile Dysfunction N amputation N Skin Lesions N Depression N Pneumonia N Incontinence N Murmur N Edema N Alzheimer's Disease N Migraine Headaches N Tobacco Abuse N Anxiety Disorder N Hemorrhoids N Obesity N Vision or Eye Problems N Arthritis N Restless Leg Syndrome N Infertility N Polyps N Carpal Tunnel N Acid Reflux (GERD) N Cancer N Stroke N Varicosities N Tendonitis N Crohn's Disease N Hypercholesterolemia N Skin Cancer N Fibromyalgia N Headaches N Anal Fissure N Irritable Bowel Syndrome N Kidney Disease N Heart Problems N Hospitalizations Y Gallstones N Kidney or Bladder Problems N Goiter N Acne N Eating Disorder N Patterson's Esophagus N Hypertriglyceridemia N Constipation N Embolism N Vitamin B12 Deficiency N Deviated Septum N AIDS/HIV N Myocardial Infarction N Asthma N Mitral Valve Disorders N Vertigo N Hepatitis N Thyroid Cancer N Neuropathy N History of DVT N Herniated Disc N Chicken Pox Y Von Willebrands Disease N Thrombophilias N Breast Cancer N Hernia N Plantar Fasciitis N Hypothyroidism N Lung Disease N Defects or Inherited Disease N Breast Problem N Ovarian Cyst N Anesthesia Complications N Testosterone Deficiency N Interstitial Cystitis N Congenital Anomalies N Hypoglycemia N Blood clot N Vitamin D Deficiency N Cellulitis N Endometriosis N Bladder or Kidney Problems N Fracture N Colorectal Cancer N Schizophrenia N Panic Disorder N Concussion N Spina Bifida N Osteoarthritis N Parkinson's Disease N Disc Protrusion N STI N Esophagitis N Angina N Thyroid Problems N GI Problems N ADD/ADHD N Anemia N Multiple Sclerosis N Abnormal PAP Y Lumbago N Mental Illness N Psychiatric Illness N Ovarian Cancer N Diabetes N Degenerative Disc Disease N Seizures/Epilepsy N Syncope N Insomnia N Hyperlipidemia N Eczema N Diverticulitis Y Dementia N Attention Deficient Disorder N Abuse/Domestic Violence N Ulcerative colitis N Cerebrovascular Disease N Depression N Guillain-Climax N Sleep Apnea N Aneurysm N Heart Disease N Bronchitis N Suicidal Ideation N Pre-Eclampsia N Hypertension N Osteoporosis N Gynecological History Statement/Question Response Abnormal Pap Yes Flow Moderate Date of LMP 02/25/2024 STIs/STDs Y Colposcopy 06/27/2016 HPV Vaccine Y Duration of Flow (days) 5 Current Control Method Age at Menarche 13 Age at First Child 20 Last Annual Exam/Provider 06/27/22 with [facility], 06/23/21 with Fariha Montelongo, 04/30/20 w/[place] Frequency of Cycle (Q days) 28 Sexually Active? Y Date of Last Cervical Culture 04/09/2024 Menses Monthly Y Date of Last Pap Smear 06/20/2022 Sexual Problems? N LMP Definite Desired Control Method None Hormone Replacement Therapy N Obstetrics History GPAL:G 10 P 4 1 4 5 Type Value Full Term 4 Spontaneous 3 Premature 1 Living 5 Ectopics 1 Total 10 Immunizations Vaccine Type Date Status Note Provider Jose Guadalupe darling and Address Organization Details Recorded Time influenza, unspecified formulation 3 completed Not Available [facility] 05/03/2022 10:31:22 Tdap 5 completed Not Available [facility] 03/09/2019 02:21:39 COVID-19, mRNA, LNP-S, PF, 100 mcg/0.5mL dose or 50 mcg/0.25mL dose 3 completed No Medeiros null, [place] - [facility] 05/04/2022 08:31:57 HPV9 8 completed No Guer[place] - [facility] 03/07/2022 13:17:25 MMR 7 completed No Guerin null, [place] - [facility] 03/07/2022 13:17:25 Tdap 7 completed No [place] [facility] 03/07/2022 13:17:26 Tdap 1 completed [place] [facility] 03/07/2022 13:17:26 Tdap 8 completed No [place] [facility] 03/07/2022 13:17:26 Influenza, split virus, trivalent, preservative 3 completed No [place] [facility] 03/07/2022 13:17:26 Influenza, split virus, trivalent, PF 7 completed No [place] [facility] 03/07/2022 13:17:26 HPV, quadrivalent 7 completed No [place] [facility] 03/07/2022 13:17:26 HPV, quadrivalent 7 completed No [place] [facility] 03/07/2022 13:17:26 Hep A, adult 8 completed No [place] [facility] 03/07/2022 13:17:26 MMR 3 completed Tete Stears [place] [facility] 10/26/2023 15:03:15 Tdap 3 completed Tete Stears [place] [facility] 10/26/2023 15:03:15 Past Encounters Encounter ID Performer Location Encounter Start Date Encounter Closed Date Diagnosis/Indication Diagnosis SNOMED-CT Code Diagnosis ICD10 Code Diagnosis [facility] [id number] [facility] [address] [place] [address] 10/30/2007 00:00:00 [id number] [facility] [address] [place] [address] 02/12/2008 00:00:00 [id number] [facility] [address] [place] [address] 10/15/2008 00:00:00 [id number] [facility] [address] [place] [address] 12/25/2008 00:00:00 [id number] [facility] [address] [place] [address] 01/08/2009 00:00:00 [id number] [facility] [address] [place] [address] 01/08/2009 00:00:00 [id number] [facility] [address] [place] [address] 03/09/2009 00:00:00 [id number] [facility] [address] [place] [address] 03/17/2009 00:00:00 [id number] [facility] [address] [place] [address] 03/30/2009 00:00:00 [id number] [facility] [address] [place] [address] 05/08/2009 00:00:00 [id number] [facility] [address] [place] [address] 06/01/2009 00:00:00 [id number] [facility] [address] [place] [address] 06/10/2009 00:00:00 [id number] [facility] [address] [place] [address] 08/20/2009 00:00:00 [id number] [facility] [address] [place] [address] 09/11/2009 00:00:00 [id number] [facility] [address] [place] [address] 12/28/2009 00:00:00 [id number] [facility] [address] [place] [address] 02/08/2010 00:00:00 [id number] [facility] [address] [place] [address] 06/18/2010 00:00:00 [id number] [facility] [address] [place] [address] 10/17/2012 00:00:00 [id number] [facility] [address] [place] [address] 12/20/2012 00:00:00 [id number] [facility] [address] [place] [address] 09/10/2013 00:00:00 [id number] [facility] [address] [place] [address] 02/15/2012 00:00:00 [id number] [facility] [address] [place] [address] 02/16/2012 00:00:00 [id number] [facility] [address] [place] [address] 08/23/2012 00:00:00 [id number] [facility] [address] [place] [address] 09/14/2012 00:00:00 [id number] [facility] [address] [place] [address] 10/17/2012 00:00:00 [id number] [facility] [address] [place] [address] 08/04/2015 00:00:00 [id number] [facility] [address] [place] [address] 09/10/2013 00:00:00 [id number] [facility] [address] [place] [address] 10/01/2013 00:00:00 [id number] [facility] [address] [place] [address] 12/03/2013 00:00:00 [id number] [facility] [address] [place] [address] 12/11/2013 00:00:00 [id number] [facility] [address] [place] [address] 01/08/2014 00:00:00 [id number] [facility] [address] [place] [address] 06/26/2014 00:00:00 [id number] [facility] [address] [place] [address] 12/19/2014 00:00:00 [id number] [facility] [address] [place] [address] 12/25/2014 00:00:00 [id number] [facility] [address] [place] [address] 07/10/2015 00:00:00 [id number] [facility] [address] [place] [address] 08/04/2015 00:00:00 [id number] Liliana Layton [address] [address] 04/19/2016 09:31:25 04/19/2016 11:25:27 Upper respiratory infection 70743001 J06.9 [id number] Z33.1 [id number] Jo Lamb [address] [place] [address] 06/23/2016 13:24:55 06/23/2016 14:10:10 Body mass index 20-24 - normal 276236974 Z68.20 Active or passive immunization 142396814 Z23 [id number] Jo Lamb [address] [place] [address] 08/01/2016 15:40:30 08/01/2016 16:07:56 Active or passive immunization 867346143 Z23 [id number] Jo Lamb [address] [place] [address] 08/23/2016 13:34:53 08/23/2016 14:51:32 Body mass index 20-24 - normal 469615444 Z68.22 Abnormal vaginal odor 62 380152 N89.8 Abdominal pain 67606192 R10.9 Abnormal m enstrual cycle 30197359 N92.6 [id number] Eliza Kurtz [facility] EP TECHNOLOGIST [address] [place] [address] [place] [address] 09/02/2016 14:13:21 09/02/2016 17:15:34 Cervical intraepithelial neoplasia grade 2 008897291 N87.1 Body mass index 20-24 - normal 416125446 Z68.21 [id number] Eliza Kurtz DO [place] EP TECHNOLOGIST [address] [place] [address] [place] [address] 10/20/2016 11:36:26 10/20/2016 12:06:19 Cervical intraepithelial neoplasia grade 2 530639933 N87.1 Screening for malignant neoplasm of cervix 393273253 Z12.4 Body mass index 20-24 - normal 648600761 Z68.21 test positive 174096623 Z32.01 [id number] Jo Lamb [address] [place] [address] 11/04/2016 13:18:12 11/04/2016 13:52:55 Body mass index 20-24 - normal 042796449 Z68.23 Acute bronchitis 4861523 2 J20.9 [id number] Jo Lamb [address] [place] [address] 03/23/2018 10:47:14 03/23/2018 12:32:53 Body mass index 25-29 - overweight 740280718 Z68.27 Fatigue 65461736 R53.83 Edema 789790902 R60.9 Anemia 020641911 D64.9 Dysmenorrhea 285946473 N 94.6 Varicose v eins of lower extremity 37299155 I83.90 [id number] Jo Lamb [address] [place] [address] 04/06/2018 08:35:18 04/06/2018 09:22:58 Vitamin D deficiency 70428643 E55.9 Dysuria 42137458 R30.0 Abdominal pain 58877406 R10.9 Body mass index 25-29 - overweight 482638412 Z68.27 [id number] Jo Lamb [address] [place] [address] 12/11/2018 08:43:39 12/11/2018 09:48:52 Vitamin D deficiency 38166192 E55.9 Dyspnea 878406230 R06.00 Anemia 906227710 D64.9 Tension-type headache 39 4976560 G44.209 Anxiety 24589277 F41.9 Panic attack 953567535 F 41.0 [id number] Jo Lamb [address] thompson [place] [address] 4 07/15/2019 09:50:01 07/15/2019 11:13:58 Fatigue 71130841 R53.83 80054165 Z33.1 [id number] Jo Lamb [address] [place] [address] 04/16/2020 09:51:38 04/16/2020 11:00:49 Migraine 64380444 G43.909 Low back pain 697492673 M54.5 Anxiety 59707957 F41.9 Body mass index 25-29 - overweight 366184728 Z68.27 Z68.29 Thoracic back pain 02538 8004 M54.6 Neck pain 10526871 M54.2 Stress 01036789 Z73.3 Weight gain 1103067 R63. 5 [id number] JOLENE Rich EP TECHNOLOGIST [address] [place] [address] [place] [address] 04/30/2020 12:41:26 04/30/2020 13:55:46 Routine gynecologic examination done 7328403431 9101 Z01.419 Depression screening 171 021897 Z13.89 Hypertensi on screening 500714996 Z13.6 Screening for malignant neoplasm of cervix 279979932 Z12.4 Patient advised that I will follow up with results. Diet education 32368162 Z71.3 Encourage healthy eating/dec reased fats, sugars, fried foods Counseling 417718056 Z71 .82 Encouraged regular exercise 30-40min/d ay 4-5 days/wk Contracept ion care management 987870431 Z30.9 Administra tion of influenza vaccine 20767296 Z23 Examinatio n of blood pressure 484442475 Z01.30 Vaccine de clined by patient 2735395658 02 Z28.21 Pt declined flu vaccine today. Generalize d anxiety disorder 77778189 F41.1 Managed by PCP Natural co ntraception education done 4254021542 96848 Z30.02 Body mass index 25-29 - overweight 365156472 Z68.29 Discussed with patient her BMI being above the advised range and diagnosis of overweight . Encourage regular physical activity and limited carbohydra te and fat, calorie controlled diet. Advised 6-12 month F/U with family physician to assess progress towards weight loss. [id number] Dayna Stuart APRN [address] [place] [address] 06/29/2020 08:44:50 06/29/2020 09:57:58 Body mass index 25-29 - overweight 551021888 Z68.29 Pre-surger y evaluation 588438115 Z01.818 Patient to return for re-evaluat ion and more labs 30 days prior to procedure. Will fully clear for procedure then once I get results of all labs and diagnostic tests back. Umbilical hernia 2644457 07 K42.9 Frequent headache 981358 003 R51.9 [id number] Jo Lamb APRN [facility] [address] [place] [place] [address] 11/10/2020 12:51:16 11/10/2020 14:19:46 Polyp of colon 60192237 K63.5 Chronic back pain 787673 002 G89.29 [id number] Fariha Montelongo [employer] [place] EP TECHNOLOGIST [address] [place] [address] 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 Diet education 90847892 Z71.3 Counseling 348250692 Z71 .82 Exercise counsellin g. Patient encouraged to exercise 30 minutes 5 days a week. Examinatio n of blood pressure 892422005 Z01.30 Hypertensi on screening 751761856 Z13.6 Screening for malignant neoplasm of cervix 027182793 Z12.4 Cystocele 000784915 N81. 10 Body mass index 25-29 - overweight 428479015 Z68.29 [id number] Liliana Layton [address] [place] [address] 06/01/2021 13:57:47 06/01/2021 15:08:29 Abdominal pain 65358065 R10.9 [id number] Kelly Alfaro [address] [place] [address] 10/28/2021 08:51:51 10/28/2021 09:33:32 test negative 059658126 Z32.02 Venereal d isease screening 796440367 Z11.3 Abnormal urine odor 8769 003 R82.90 [id number] Norma Friedman [address] [address] 12/10/2021 15:04:23 12/10/2021 15:42:35 Pharyngitis 059563819 J02.9 Maxillary sinusitis 8834 8008 J32.0 [id number] Norma Friedman [address] [address] 03/07/2022 12:54:49 03/07/2022 13:34:45 Pharyngitis 547230054 J02.9 Streptococ kera sore throat 27140770 J02.0 contact precaution s discussed [id number] Kelly Alfaro [facility] [address] [facility] [place] [address] 05/03/2022 10:30:34 05/03/2022 11:34:07 Body mass index 25-29 - overweight 783621456 Z68.27 Overweight 219191372 E66 .3 Fatigue 98991605 R53.83 Dysmenorrhea 847982906 N 94.6 Administra tion of SARS-CoV-2 antigen vaccine 068195162 Z23 Painless r ectal bleeding 413771302 K62.5 [id number] Norma Friedman [address] [address] 06/17/2022 10:00:42 06/17/2022 10:48:29 Streptococcal sore throat 68639815 J02.0 contact precaution s discussed [id number] JOLENE Agudelo EP TECHNOLOGIST [address] [facility] [place] [address] 06/27/2022 09:30:06 06/27/2022 10:27:41 Routine gynecologic examination done 0411866309 9101 Z01.419 Depression screening 171 263547 Z13.89 PHQ-9 completed today. Hypertensi on screening 009903136 Z13.6 Diet education 45550066 Z71.3 Encourage healthy eating/mayo it fats, sugars, fried foods Counseling 892925543 Z71 .82 Encouraged regular exercise 30-40min/d ay 4-5 days/wk Examinatio n of blood pressure 177384765 Z01.30 Screening for malignant neoplasm of cervix 410667390 Z12.4 Body mass index 25-29 - overweight 893496748 Z68.27 Overweight 648776239 E66 .3 [id number] Kelly Alfaro [facility] [address] [place] [address] 08/12/2022 08:43:02 08/12/2022 09:31:29 Menstrual period late 28497336 N92.6 Advised patient to f/u with OBGYN.Carlos mmended beginning daily vitamin Urine preg onelia test positive 600870466 Z32.01 Patient requesting serum HCG be drawn at this time. Will call with results when available. Body mass index 25-29 - overweight 849405983 Z68.27 Overweight 571561205 E66 .3 [id number] MD Alison Broderick EP TECHNOLOGIST [address] [facility] [place] [address] 08/24/2022 10:45:21 08/24/2022 12:04:51 Pain in pelvis 99098282 R10.2 Gestation period, 6 weeks 44545247 Z3A.01 High risk 4720 0007 O09.90 Miscarriage 82124006 O03 .9 [id number] Norma Friedman [address] [address] 06/09/2023 10:42:17 06/09/2023 11:08:28 Streptococcal sore throat 77181445 J02.0 contact precaution s discussed [id number] Norma Friedman [address] [address] 06/16/2023 13:13:00 06/16/2023 13:46:31 Low back pain 202374417 M54.50 if worsen or no improvemen t return or be seen in ed Pain of le ft hip joint 4979915669 31481 M25.480 [id number] Norma Friedman [address] [address] 07/17/2023 09:26:42 07/17/2023 10:11:40 Tuberculosis screening 363864892 Z11.1 return for reading and repeat test [id number] Norma Friedman [address] [address] 07/25/2023 15:45:25 07/25/2023 16:28:51 Tuberculosis screening 251033420 Z11.1 TB skin test completed in the right forearm. Patient instructed to return in 48 hours to have it read. 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 [id number] Kelly Alfaro [facility] [address] [place] [address] 09/04/2023 16:44:22 09/21/2023 12:29:49 Thoracic back pain 094659546 M54.6 Abdominal pain 91481052 R10.9 Painful re ctal bleeding 419879569 K62.5 Hematemesis 9067592 K92. 0 Advised patient to seek care in ED for additional episodes of hematemesi s. Patient verbalized understand ing. Constipation 22073688 K5 9.00 Discussed increased water and fiber intake Mass of right breast 430 7546028 3974385 N63.10 Diarrhea 17112696 R19.7 [id number] Norma Friedman [address] [address] 09/19/2023 16:21:21 09/19/2023 17:10:15 Streptococcal sore throat 83712501 J02.0 contact precaution s discussed Decreased hearing 027040 001 H91.91 [id number] Norma Friedman [address] [address] 10/26/2023 14:44:51 10/26/2023 16:26:11 Nausea and vomiting 57536729 R11.2 nya dietif symptoms worsen ot no improvemen t return or go to ed Pain of hip region 85520 002 M25.559 advised to go to ed for eval- pt declined Fatigue 19368384 R53.83 [id number] JOLENE Olvera EP TECHNOLOGIST [address] [facility] [place] [address] 11/22/2023 10:31:43 11/22/2023 11:49:03 Urine test positive 139513926 Z32.01 Supervisio n of high risk with history of previous section done 8764725214 9106 O09.899 Vaginal de livery following previous section 502591203 O34.219 Gestation period, 8 weeks 31727611 Z3A.08 Past pregn robert history of premature delivery 293892770 Z87.51 2014 stat c/s for bradycardi a screening 2437 68152 Z36.9 Body mass index 25-29 - overweight 004147068 Z68.27 Generalize d anxiety disorder 19969607 F41.1 [id number] Jaleesa Hewitt MD [place] EP TECHNOLOGIST [address] [place] [address] [place] [address] 12/04/2023 15:50:09 12/04/2023 16:44:42 Vaginal delivery following previous section 288101091 O34.219 Supervisio n of high risk with history of previous section done 5982127960 9106 O09.899 Past pregn robert history of premature delivery 998188625 Z87.51 screening 2437 18161 Z36.9 Gestation period, 6 weeks 45962909 Z3A.01 [id number] YANNA GRACE DO [place] EP TECHNOLOGIST [address] [place] [address] [place] [address] 12/01/2023 11:30:49 12/01/2023 12:13:21 Body mass index 25-29 - overweight 343368753 Z68.27 Overweight 889060168 E66 .3 History of growth retardation 7741216952 9108 Z87.59 Generalize d anxiety disorder 43481625 F41.1 Past pregn robert history of miscarriage 289377659 Z87.59 Pain in pelvis 72664918 R10.2 [id number] Nya Anders CNM [place] EP TECHNOLOGIST [address] [place] [address] [place] [address] 12/11/2023 12:59:25 12/11/2023 14:05:32 Supervision of high risk with history of previous section done 1557248191 9106 O09.899 screening 2437 20719 Z36.9 Vaginal de livery following previous section 647748812 O34.219 Past pregn robert history of premature delivery 791884145 Z87.51 Gestation period, 7 weeks 03445411 Z3A.01 [id number] MD Alison Broderick EP TECHNOLOGIST [address] [place] [address] [place] [address] 12/15/2023 13:23:06 12/15/2023 14:20:08 Supervision of high risk with history of previous section done 5186758950 9106 O09.899 Gestation period, 7 weeks 24105345 Z3A.01 screening 2437 39007 Z36.9 Vaginal de livery following previous section 142389126 O34.219 Past pregn robert history of premature delivery 553545844 Z87.51 Pain in pelvis 09869022 R10.2 Candidiasis of vagina 72 965547 B37.31 Anxiety 57837574 F41.9 [id number] DO [place] EP TECHNOLOGIST [address] [place] [address] [place] [address] 12/21/2023 13:29:02 12/21/2023 14:33:09 Body mass index 25-29 - overweight 344026006 Z68.27 Overweight 620942728 E66 .3 History of growth retardation 5564776828 9108 Z87.59 Generalize d anxiety disorder 13211862 F41.1 Anemia 825249542 D64.9 Gestation period, 8 weeks 00315610 Z3A.08 screening 2437 30398 Z36.9 Missed miscarriage 42144 004 O02.1 [id number] Norma Friedman APRN [address] [address] 03/12/2024 16:41:30 03/12/2024 17:40:21 Streptococcal sore throat 59286973 J02.0 contact precaution s discussed [id number] MD Alison Broderick EP TECHNOLOGIST [address] [place] [address] [place] [address] 04/04/2024 15:21:55 04/04/2024 16:09:04 Early stage of 955181028 Z34.91 Anxiety 94967827 F41.9 Gestation period, 5 weeks 97600468 Z3A.01 High risk 4720 0007 O09.90 screening 2437 37975 Z36.9 [id number] MD Alison Broderick EP TECHNOLOGIST [address] [place] [address] [place] [address] 04/02/2024 09:36:00 04/02/2024 10:38:58 Early stage of 229690707 Z34.91 Body mass index 25-29 - overweight 066852898 Z68.28 Past pregn robert history of miscarriage 781592950 Z87.59 Gestation period, 4 weeks 47525199 Z3A.01 High risk 4720 0007 O09.90 [id number] JOLENE Olvera EP TECHNOLOGIST [address] [place] [address] [place] [address] 04/09/2024 10:44:10 04/09/2024 11:50:57 History of growth retardation 9333750529 9108 Z87.59 2010 Body mass index 25-29 - overweight 389327916 Z68.28 starting BMI: 28.3 Past pregn robert history of ectopic 621012152 Z87.59 2018 Past pregn robert history of miscarriage 186025834 Z87.59 2023 D&C, , 2009 SAB at home x3 High risk 4720 0007 O09.91 hx of ectopic x1, IUGR, SAB x4 Gestation period, 6 weeks 42359057 Z3A.01 Vulvitis 76515800 N76.2 Patient me dical record not available 678006434 Z76.89 Supervisio n of high risk with history of previous section done 7640642699 9106 O09.891 2014 stat c/s due to bradycardi a, 2 VBACs following c/s [id number] MD Alison Broderick EP TECHNOLOGIST [address] [place] [address] [place] [address] 04/12/2024 12:48:24 04/12/2024 14:05:31 screening 000588181 Z36.9 Early stag e of 572342430 Z34.91 High risk 4720 0007 O09.90 Gestation period, 6 weeks 39558284 Z3A.01 History of growth retardation 9347898794 9108 Z87.59 Past pregn robert history of ectopic 026899781 Z87.59 Past pregn robert history of miscarriage 002713377 Z87.59 Nausea 102015166 R11.0 [id number] YANNA GRACE DO [place] EP TECHNOLOGIST [address] [place] [address] [place] [address] 04/18/2024 12:22:50 04/18/2024 13:40:18 Herpes simplex type 1 infection 955790482 B00.9 Supervisio n of high risk with history of previous section done 9877642216 9106 O09.891 History of growth retardation 5268551157 9108 Z87.59 Vaginal de livery following previous section 738065564 O34.219 Past pregn robert history of ectopic 827022207 Z87.59 Past pregn robert history of miscarriage 283490018 Z87.59 Gestation period, 7 weeks 08404204 Z3A.01 screening 2437 11357 Z36.9 Body mass index 25-29 - overweight 874923477 Z68.28 Overweight 724341173 E66 .3 Nausea and vomiting in 0792869025 O21.9 Vaginal bl eeding complicating early 643442024 O20.9 Dysuria 91608702 R30.0 [id number] Jaleesa Hewitt MD [place] EP TECHNOLOGIST [address] [place] [address] [place] [address] 04/22/2024 12:04:59 04/22/2024 13:29:20 Herpes simplex type 1 infection 508224427 B00.9 Supervisio n of high risk with history of previous section done 2288157832 9106 O09.891 History of growth retardation 7686715560 9108 Z87.59 Vaginal de livery following previous section 885370473 O34.219 Past pregn robert history of ectopic 444941607 Z87.59 Past pregn robert history of miscarriage 077208966 Z87.59 screening 2437 57490 Z36.9 Body mass index 25-29 - overweight 863696565 Z68.28 Overweight 681073796 E66 .3 Gestation period, 8 weeks 98078804 Z3A.08 Subchorionic hematoma 60 9831088 O41.8X99 [id number] Jaleesa Hewitt MD [place] EP TECHNOLOGIST [address] [place] [address] [place] [address] 05/07/2024 12:44:22 05/07/2024 14:49:15 Herpes simplex type 1 infection 079763227 B00.9 Supervisio n of high risk with history of previous section done 4081945272 9106 O09.891 History of growth retardation 8456193515 9108 Z87.59 Vaginal de livery following previous section 992007372 O34.219 Past pregn robert history of ectopic 173144452 Z87.59 Past pregn robert history of miscarriage 429245012 Z87.59 screening 2437 23110 Z36.9 Body mass index 25-29 - overweight 961771891 Z68.28 Overweight 043931007 E66 .3 Subchorionic hematoma 60 9294413 O41.8X99 Gestation period, 10 weeks 09049947 Z3A.10 Nausea and vomiting in 5357874125 O21.9 [id number] Jaleesa Hewitt MD [place] EP TECHNOLOGIST [address] [place] [address] [place] [address] 05/15/2024 15:16:12 05/15/2024 16:04:46 Herpes simplex type 1 infection 811706356 B00.9 Supervisio n of high risk with history of previous section done 6076526903 9106 O09.891 History of growth retardation 4441907233 9108 Z87.59 Vaginal de livery following previous section 390559128 O34.219 Past pregn robert history of ectopic 346473756 Z87.59 Past pregn robert history of miscarriage 278637762 Z87.59 screening 2437 31545 Z36.9 Body mass index 25-29 - overweight 478590119 Z68.28 Overweight 153936710 E66 .3 Subchorionic hematoma 60 7480428 O41.8X99 Gestation period, 11 weeks 37902348 Z3A.11 Health Concerns Section Related Observation LastModified by Organization Detai ls LastModified Time None Recorded Concern Status LastModified by Organization Details LastModified Time None Recorded Advance Directives Directive N: Payers Insurance Date Sequence Insurance Name Policy Number Policy Palmer Covered Member ID Palmer Member ID Guarantor Name 06/09/2023 1 [place] [facility] CHO[facility] - FFS/TRADITIO NAL Whitney Presley [id number] Whitney Presley 05/21/20[address] [facility] (MEDICAID HMO) Whitney Presley [id number] Whitney Luoks 06/09/2023 [place] [facility] [place] Whitney Presley [id number] Whitney Presley 06/09/2023 [place] Whitney Presley [id number] Whitney Luoks 05/08/2024 [place] Whitney Luoks [id number] Whitney Presley Notes Date Note Type Note Provider Name and Address Organization Details Recorded Time 04/12/2024 text/html ROS as noted in the HPI 6 week OB visitGIANFRANCO Dowd cramping Kallie Akers, MD [address], [place], [address], [place] - [facility] 04/15/2024 14:33:55 04/18/2024 text/html u/s, ob problem Julia Pham [facility], [place] - [facility] 04/18/2024 16:01:43 04/22/2024 text/html ROS as noted in the HPI 8 wk OB visitER f/u for RENE Jaleesa Hewitt MD [address], [place], [address], [place] - [facility] 04/22/2024 13:32:37 05/07/2024 text/html ROS as noted in the HPI 10 wk OB visit Jaleesa Hewitt MD [address], [place], [address], [place] - [facility] 05/07/2024 15:06:12 05/15/2024 text/html ROS as noted in the HPI 11 wk OB visitReports spotting/back pain that has improved Jalesea Hewitt MD [address], [place], [address], [place] - [facility] 05/17/2024 09:38:48 OBGyn Episode Ob Episode Information Episode Created Date Number of Fetuses Patient Bloodtype Patient rh Status Prepregnancy Weight lbs Domestic Partner Domestic Partner Phone Father Name Ultrasound Manager Status 11/22/19 24 1 O Positive 151 [place] darling, 28 [facility] CLOSED Fetus Data First Name Last Name Admitted to NICU Weight (g) Sex Living Outcome Pediatric Complications Fetus ID Race Codes Race Delivery Type , Spontane ous [id number] Problems Problem Notes Lives- [facility], dietarybreast/circ if boy/kidcare08/11/2010: 37.5wks,IUGR 5# 11oz, eating disorder,sga, hypokalemia, DWD MLE with repair, [facility]09/05/2012: 37.4wks 5# 7oz. w/1st degree lac and repair. per KG (Kevin Feng)06/19/2014: 34.3wks 5# 4oz, Poss labor, bradycardia, Stat c/s, LST inc baby xfer to childrens.04/21/2016: 37wks 5# 13oz. [facility], VBAC08/21/19: 40wks 6# 3oz, [facility], no issues per pt other then low potassium, delivered Monty , VBACULTRASOUNDS: 11/29/23: GS and YS seen in uterus, no FP. Bilateral ovaries seen. SMB1: GS,YS, FP 6+0 wk GA 120bpm, RENE/KRA12/11/23: 6w6d. fca seen. ys seen. no cul de sac fluid seen. ?small rene seen. [place]/lls102/19/23: CRL 1.74cm, YS seen, no FCA seen. SMB Problem Name Start Date End Date Resolution Snomed Code Not e Vaginal delivery following previous section 11/22/2023 [id number] 2016 [facility] 2019 [facility] History of growth retardation 97042984604483 2011: I UGR Supervision of high risk with history of previous section done 11/22/2023 24410613620899 2014 stat c/s, she has had 2 succesful deliveries since Body mass index 25-29 - overweight 248009222 starting wgt: 151BMI: 26.0TczZ9t: 4.8 Contraception care management 566782013 ocp screening 163911101 Mat21- # and info givenAFP- desiresCF/SMA- drawn 11/22/23 Past history of premature delivery 11/22/2023 401127895 2015: 34wk delivery, stat c/s, LST incision Active immunization 81304111 Covid- completedTdap- @30wksFlu- declined 11/22/23 Recurrent miscarriage 69012571 1 SAB in 2009 x3SAB 2019Progesterone: 34.2 Rolo Calculation Initial Rolo Date Initial Exam Date Initial Exam Provider Initial Ultrasound Date Last Menstrual Period Date Ultra Sound Weeks Gestation 07/29/2024 11/22/2023 [email or web address] 12/04/2023 09/23/2023 6 Eighteen To Twenty Week Rolo Update Ultra Sound Date Fundal Height At Umbil Quickening Date Ultra Sound Latest Weeks Gestation Final Rolo Confirmed By Final Rolo Confirmed Date Final Rolo Date Ultra Sound Latest Days Gestation 0 0 Pre-miranda Flowsheet Flowsheet Date 11/22/2023 Zhu Score Blood Edema Fundus Height Fundus Units Glucose Ketones Leukocytes Nitrite Labor Signs Protein Cervic Dilation Cervic Effacement Cervic Station neg none none negative none Negative none neg Type Weight in lbs Pre/Post Dialysis Refused With clothes 151.595163788814 BP Diastolic BP Location Tested BP Systolic BP Type 78 R arm 122 sitting Fetus Heart Rate Present Fetus Movement A No Comments Whitney is here for obhx appt . Unplanned . Different FOB this . Denies vb or pain. She plans TOLAC. She has had two successful VBACs. Desires NIPT. Hx of recurrent miscarriage, she is taking Progesterone and PNV. Denies any new health problems, chart updated. Advised she RTC for dating u/s to confirm ROLO.AD Flowsheet Date 12/01/2023 Zhu Score Blood Edema Fundus Height Fundus Units Glucose Ketones Leukocytes Nitrite Labor Signs Protein Cervic Dilation Cervic Effacement Cervic Station none none neg Type Weight in lbs Pre/Post Dialysis Refused With clothes 155.436241935243 BP Diastolic BP Location Tested BP Systolic BP Type 80 L arm 122 sitting Fetus Heart Rate Present Fetus Movement A No Comments no lof, no vb, no ctx, no cr amps. pt states over the last 2 weeks she has experienced intermittent back and pelvic pain. she denies bleeding. she states she went to [facility] this morning for a ultrasound due to being concerned because of history of miscarriage, however their system is down and it is not read yet. She states she had an HCG level done on 11/26 and it was 4318, lab was ordered by pcp Norma Friedman. //Richie, hcg done by PCP was 4,318 on 11/27/23. Intrauterine GS and YS seen but no FP. Recommend follow up next week for repeat ultrasound. SMB Flowsheet Date 12/04/2023 Zhu Score Blood Edema Fundus Height Fundus Units Glucose Ketones Leukocytes Nitrite Labor Signs Protein Cervic Dilation Cervic Effacement Cervic Station neg none negative none Negative 1+ Type Weight in lbs Pre/Post Dialysis Refused With clothes 153.574130922920 BP Diastolic BP Location Tested BP Systolic BP Type 80 L arm 124 sitting Fetus Heart Rate Present Fetus Movement Comments No LOF or VB, does have some cramping on her rigth lower abdomen.//JS///US shows IUP measuring 6+0 wk GA with FHR 120bpm. Sets ROLO to 07/29/24. She is unsure where she wants to deliver as she is going to . She reports that she went to [facility] over the weekend for pain. They wanted to admit her for MRI, but she declined. She thinks the pain is from a corpus luteum cyst. There is a small CL cyst on right side. Pain may also be from RENE. Return in 1 wk with viability US. KRA Flowsheet Date 12/11/2023 Zhu Score Blood Edema Fundus Height Fundus Units Glucose Ketones Leukocytes Nitrite Labor Signs Protein Cervic Dilation Cervic Effacement Cervic Station neg none none negative none Negative none neg Type Weight in lbs Pre/Post Dialysis Refused 155.33662308782 BP Diastolic BP Location Tested BP Systolic BP Type 72 114 sitting Fetus Heart Rate Present A 123 Present Fetus Movement Comments no vb, no lof, has questions regarding her hormones while in regards to breast size.//Kaleigh presents today for an OB visit with repeat viability US. FCA seen, YS seen, CRL increased from 0.36 to 0.90 cm. No cul de sac fluid. Discussed. She is still yusing Porgesterone suppositories. She is concerned that some days my breast feel full and then deflated . Discussed. She would like to have M21. Will obtain at the time of her OBPE. She desires to and is planning to transfer to [facility] in [place] at 20 weeks. No other Q/C. F/U 4 weeks for OB PE. Flowsheet Date 12/15/2023 Zhu Score Blood Edema Fundus Height Fundus Units Glucose Ketones Leukocytes Nitrite Labor Signs Protein Cervic Dilation Cervic Effacement Cervic Station neg none negative none Negative neg Type Weight in lbs Pre/Post Dialysis Refused With clothes 157.754346947520 BP Diastolic BP Location Tested BP Systolic BP Type 76 L arm 114 sitting Fetus Heart Rate Present A 152 Present Fetus Movement Comments OB BI, No LOF or VB, c/o pel caryn pain/discomfort, increase in discharge.//JS///Suspect yeast on exam. Rx miconazole and check vaginitis swab. US reassuring with viable IUP. She is struggling with anxiety. Plan to start buspar as she did well on this in the past. Return as scheduled. KRA Flowsheet Date 12/21/2023 Zhu Score Blood Edema Fundus Height Fundus Units Glucose Ketones Leukocytes Nitrite Labor Signs Protein Cervic Dilation Cervic Effacement Cervic Station neg none none negative none Negative neg Type Weight in lbs Pre/Post Dialysis Refused With clothes 157.048599904011 BP Diastolic BP Location Tested BP Systolic BP Type 70 R arm 118 sitting Fetus Heart Rate Present A Absent Fetus Movement A No Comments no lof, no vb, no ctx, no cr amps. Patient was brought into the office today for viability scan. She stated she went to an elective ultrasound facility yesterday, and the tech advised her that she thought her gestational sack seemed small, and she urged her to call our office. Patient voices she is extremely nervous today. // Richie, patient states there was a FHR yesterday of 160s. Unfortunately, a FHR was not detected today. CRL measured 8+1wga. She denies cramping or bleeding. She would like a beta hcg sent to [facility]. Discussed options of expectant management vs medical management vs surgical management. She would like to wait on a decision for now. I recommended a 1 week follow up, but may come in sooner, if she would like. Bleeding precautions given. SMB Menstrual History Last Menstrual Date Menses Monthly On Bcp Conception Prior Menses Frequency Hcg Plus Date Menarche Onset Age 0809/23/2023 true false 4 12 Genetic Screening And Infection History Question Response Note Patient's Age Will Be 35 Yea rs Or Older At Estimated Date of Delivery false Thalassemia (Iraqi, Chinese, Mediterranean, Or Background): MCV < 80 false Neural Tube Defect (Meningom yelocele, Spina Bifida, Or Anencephaly) false Congenital Heart Defect false Down Syndrome false Tyrese-Sachs (eg, Shinto, Cajun, Argentine-Japanese) f alse Branden Disease false Sickle Cell Disease Or Trait () false Hemophilia Or Other Blood Disorders false Muscular Dystrophy false Cystic Fibrosis false [place]'s Chorea false Mental Retardation/Autism false If Yes, Was Person Tested For Fragile X? false Other Inherited Genetic Or Chromosomal Disorder false Maternal Metabolic Disorder (eg, Type 1 Diabetes , PKU) false Patient Or Baby's Father Had A Child With Defects Not Listed Above false Recurrent Loss, Or A Stillbirth true recurrent miscarriage Medications (including Suppl ements, Vitamins, Herbs, OTC Drugs), Illicit/Recreational Drugs, Alcohol true proges terone, PNV If Yes, Agent(s) And Strength/Dosage false Any Other Genetic History false Live With Someone With TB Or Exposed To TB false Patient Or Partner Has History Of Genital Herpes false Rash Or Viral Illness Since Last Menstrual Perio d false History Of STD, Gonorrhea, Chlamydia, HPV, Syphi lis false Other Infection History false History of HIV false History of Hepatitis false Prior GBS-infected child false Recent Travel Outside of Country false Plans and Education First Trimester Discussed Date Discussion Item Discussion Note Discuss ed By 11/22/2023 Desire for unplanned aduke211/22/2023 Alcohol ade211/22/2023 Illicit/recreational drugs a duke24 11/22/2023 Nutrition ad11/22/2023 Weight gain counseling 15-25 aduke 24 11/22/2023 Intimate Partner Violence ad uke24 11/22/2023 Unstable Housing aduke211/22/2023 Use of any medicatio ns (including supplements, vitamins, herbs, or OTC drugs) ad11/22/2023 Avoidance of saunas or hot tubs ad11/22/2023 Indications for ultrasonography 11/22/2023 Comminucation Barriers ad11/22/2023 Anticipated course o f care ad11/22/2023 Toxoplasmosis precau tions (cats/raw meat) ad11/22/2023 Sexual activity ad11/22/2023 Exercise ad11/22/2023 Tobacco/smoking cess ation counseling (ask, advise, assess, assist, and arrange) non-smoker ad11/22/2023 Barriers to Care 11/22/2023 Environmental/work hazards a 11/22/2023 Depression/Anxiety (should be performed at least once during period) anxiety- no meds ad11/22/2023 WIC/Hands Referral proof of preg onelia given 11/22/2311/22/2023 Nutrition counseling ; special diet; dietary precautions (mercury, listeriosis) ad11/22/2023 Dental Care / Refer to Dentist Dr. Patric Shin 11/22/2023 Seat belt use 11/22/2023 Childbirth classes/h ospital facilities ad11/22/2023 ad11/22/2023 Screening for aneuploidy tang ke24 Second Trimester Discussed Date Discussion Item Discussion Note Discuss ed By Third Trimester Discussed Date Discussion Item Discussion Note Discuss ed By Delivery Information Delivery Date Delivery Type Labor Anesthesia Weeks Gestation Incision Type Labor Labor Length Hrs Delivered By Post Complications Tubal Sterilization Discharge Date Comments 4 10.4 Suction D&C at [facility] Discharge Information Feeding Method Contraceptive Method Maternal HG B and HCT Levels Ob Episode Information Episode Created Date Number of Fetuses Patient Bloodtype Patient rh Status Prepregnancy Weight lbs Domestic Partner Domestic Partner Phone Father Name Ultrasound Manager Status 04/10/19 25 1 O Positive 160 not involve d Maday Kothari CLOSED Fetus Data First Name Last Name Admitted to NICU Weight (g) Sex Living Outcome Pediatric Complications Fetus ID Race Codes Race Delivery Type [id number] Problems Problem Notes Lives- [place]: 37.5wks,IUGR 5# 11oz, eating disorder,sga, hypokalemia, DWD MLE with repair, Zaira [facility]09/05/2012: 37.4wks 5# 7oz. w/1st degree lac and repair. per KG (Kevin Feng)06/19/2014: 34.3wks 5# 4oz, Poss labor, bradycardia, Stat c/s, LST inc baby xfer to children[facility].04/21/2016: 37wks 5# 13oz. [facility], VBAC08/21/19: 40wks 6# 3oz, [facility], no issues per pt other then low potassium, delivered Monty , VBACULTRASOUNDS: 04/12/24: Viable IUP @ 6+4 wk on US, 6+5 wk by sure LMP. ROLO 12/01/24. KRA04/18/24: FHR 153,ROLO is consistent. SMB3: viable IUP; small RENE/KRA05/07/24: viable IUP; movement seen; continued small SCH05/16/24: viable IUP/ KRA Problem Name Start Date End Date Resolution Snomed Code Not e Past history of ectopic 04/09/2024 [id number] 2019 Supervision of high risk with history of previous section done 04/11/2024 [id number] P c/s 2014, V GUERO 2016 and : undecided about repeat c/s or Vaginal delivery following previous section [id number] 2016 [facility] 2019 [facility] Body mass index 25-29 - overweight [id number] BMI: 28.3 starting wgt: 025NwkS4v: 4.7 History of growth retardation [id number] 2010: I UGR[ ]growth u/s 28, 32, 36wks Active immunization [id number] Covid- x1, declined moreTdap- @30wksFlu- declined 04/09/24 screening [id number] Mat21- 46XXAFP- desiresCF/SMA- 2023 negative Herpes simplex type 1 infection 04/11/2024 [id number] 10/28/2021 serum drawn and +, HSV2 serum negativeThis report is in [facility]- found it after pt checked out of obhx appt.[ ]need to discuss and confirm no hx of genital lesions Nausea and vomiting [id number] 04/09/24: manageable, declined medication Past history of miscarriage 04/09/2024 [id number] 2010x3 SAB at [id number] D&C at [facility] Rolo Calculation Initial Rolo Date Initial Exam Date Initial Exam Provider Initial Ultrasound Date Last Menstrual Period Date Ultra Sound Weeks Gestation 12/01/2024 04/09/2024 [email or web address] 04/15/2024 02/25/2024 6 Eighteen To Twenty Week Rolo Update Ultra Sound Date Fundal Height At Umbil Quickening Date Ultra Sound Latest Weeks Gestation Final Rolo Confirmed By Final Rolo Confirmed Date Final Rolo Date Ultra Sound Latest Days Gestation 0 cdicken 04/25/2024 12/02/19 25 0 Pre- Flowsheet Flowsheet Date 04/09/2024 Zhu Score Blood Edema Fundus Height Fundus Units Glucose Ketones Leukocytes Nitrite Labor Signs Protein Cervic Dilation Cervic Effacement Cervic Station neg none none negative none Negative none neg Type Weight in lbs Pre/Post Dialysis Refused With clothes 160.662116943910 BP Diastolic BP Location Tested BP Systolic BP Type 70 R arm 122 sitting Fetus Heart Rate Present Fetus Movement A No Comments Whitney is here for obhx appt . She is sure of LMP. Denies vb or pain. FOB is not involved, moved to [place]. Updated hx. Denies any new health problems since prior hx appt. Would like NIPT, info given to call. Consents to labs today. Discussed plan of care this . Nuswab collected for vulvar itching/irritation. All q/c answered. Advised RTC for dating u/s to confirm ROLO.AD Flowsheet Date 04/12/2024 Zhu Score Blood Edema Fundus Height Fundus Units Glucose Ketones Leukocytes Nitrite Labor Signs Protein Cervic Dilation Cervic Effacement Cervic Station neg none small none Negative neg Type Weight in lbs Pre/Post Dialysis Refused With clothes 157.464766660017 BP Diastolic BP Location Tested BP Systolic BP Type 78 L arm 110 sitting Fetus Heart Rate Present A 124 Present Fetus Movement Comments No LOF, c/o light spotting a nd light cramping, along with being very nauseous.//JS//US shows viable IUP. 6+4 wk GA via US. Confirms ROLO by sure LMP 12/01/24 6+5 wk GA. FHR 124bpm. Return in 2 wk for viability US. KRA Flowsheet Date 04/18/2024 Zhu Score Blood Edema Fundus Height Fundus Units Glucose Ketones Leukocytes Nitrite Labor Signs Protein Cervic Dilation Cervic Effacement Cervic Station trace none 7 wks none negative none Negative none neg Type Weight in lbs Pre/Post Dialysis Refused With clothes 157.324941522862 BP Diastolic BP Location Tested BP Systolic BP Type 72 L arm 110 sitting Fetus Heart Rate Present A 153 Present Fetus Movement A No Comments no lof, no ctx. Patient call ed today for an appt due to cramping and spotting a pinkish discharge. She states she has also noticed a lot of edema in her face, arms, hands and legs. She states she has been very nauseated as well and the Pepcid and B6 are not working. Trace blood in urine today. / jyoungAgree, no visible swelling today. Viability scan normal. Spec exam is significant for a mild amount of sanguinous discharge and a small amount of clumped white discharge. Will send Nuswab again. She is having mild, intermittent dysuria, so will culture urine again. Will send in Phenergan PO and GA for persistent nausea/vomiting. RTC next week as scheduled. SMB Flowsheet Date 04/22/2024 Zhu Score Blood Edema Fundus Height Fundus Units Glucose Ketones Leukocytes Nitrite Labor Signs Protein Cervic Dilation Cervic Effacement Cervic Station 3+ none negative none Negative neg Type Weight in lbs Pre/Post Dialysis Refused With clothes 158.390995531414 BP Diastolic BP Location Tested BP Systolic BP Type 80 L arm 112 sitting Fetus Heart Rate Present A 170 Present Fetus Movement Comments No LOF, light cramping and b leeding//JS///Whitney was seen in the [facility] ER. They saw a RENE. RENE seen today. Very small. Discussed pelvic rest. She is flying to [place] soon. Advised if bleeding or cramping, not to fly, but if feeling well without issues, no contraindications. Return in 2 wk with viability US. LUIS Flowsheet Date 05/07/2024 Zhu Score Blood Edema Fundus Height Fundus Units Glucose Ketones Leukocytes Nitrite Labor Signs Protein Cervic Dilation Cervic Effacement Cervic Station none none negative none Negative none neg Type Weight in lbs Pre/Post Dialysis Refused With clothes 161.081952702027 BP Diastolic BP Location Tested BP Systolic BP Type 80 118 sitting Fetus Heart Rate Present A 164 Present Fetus Movement A No Comments No LOF or VB, no cramping. c /o being very nausea.//JSDeclines loss of fluid, vaginal bleeding, changes in vaginal discharge, contractions, LE swelling, shortness of breath. Nausea is constant, having to take pherergan every 4 hours. It does help, has tried and failed B6, unisom, and Zofran. Is not drinking very much water, has been using Gatorade and erinn ales due to nausea. Continues to take Progesterone and curious when she will be able to stop. Wants NIPT testing today. US showed normal HR with appropriate growth. Follow up in 2 weeks for routine OBV. Plans are to transfer care to [facility] after her next appointment.//Chano have seen pt and agree with above. LUIS Flowsheet Date 05/15/2024 Zhu Score Blood Edema Fundus Height Fundus Units Glucose Ketones Leukocytes Nitrite Labor Signs Protein Cervic Dilation Cervic Effacement Cervic Station neg none negative none Negative neg Type Weight in lbs Pre/Post Dialysis Refused With clothes 161.773625426441 BP Diastolic BP Location Tested BP Systolic BP Type 76 L arm 116 sitting Fetus Heart Rate Present A 168 Present Fetus Movement Comments OB BI for cramping, back katerin n, spotting. No LOF or VB.//JS//IUP shows viable and reassuring IUP. Pt reassured. Has appt with new office 05/21. LUIS Menstrual History Last Menstrual Date Menses Monthly On Bcp Conception Prior Menses Frequency Hcg Plus Date Menarche Onset Age 0102/25/2024 true false 5 12 Genetic Screening And Infection History Question Response Note Patient's Age Will Be 35 Yea rs Or Older At Estimated Date of Delivery false Thalassemia (Iraqi, Chinese, Mediterranean, Or Background): MCV < 80 false Neural Tube Defect (Meningom yelocele, Spina Bifida, Or Anencephaly) false Congenital Heart Defect false Down Syndrome false Tyrese-Sachs (eg, Shinto, Cajun, Argentine-Japanese) f alse Branden Disease false Sickle Cell Disease Or Trait () false Hemophilia Or Other Blood Disorders false Muscular Dystrophy false Cystic Fibrosis false [place]'s Chorea false Mental Retardation/Autism false If Yes, Was Person Tested For Fragile X? false Other Inherited Genetic Or Chromosomal Disorder false Maternal Metabolic Disorder (eg, Type 1 Diabetes , PKU) false Patient Or Baby's Father Had A Child With Defects Not Listed Above false Recurrent Loss, Or A Stillbirth true recurrent SAB Medications (including Suppl ements, Vitamins, Herbs, OTC Drugs), Illicit/Recreational Drugs, Alcohol true PNV, proge sterone If Yes, Agent(s) And Strength/Dosage false Any Other Genetic History false Live With Someone With TB Or Exposed To TB false Patient Or Partner Has History Of Genital Herpes false pt denies Rash Or Viral Illness Since Last Menstrual Perio d false History Of STD, Gonorrhea, Chlamydia, HPV, Syphi lis false pt denies Other Infection History false History of HIV false History of Hepatitis false Prior GBS-infected child false Recent Travel Outside of Country false Plans and Education First Trimester Discussed Date Discussion Item Discussion Note Discuss ed By 04/09/2024 Desire for unplanned aduke204/09/2024 Alcohol aduke204/09/2024 Illicit/recreational drugs a duke24 04/09/2024 Nutrition aduke204/09/2024 Weight gain counseling 15-25# aduke 24 04/09/2024 Intimate Partner Violence ad uke204/09/2024 Unstable Housing aduke204/09/2024 Use of any medicatio ns (including supplements, vitamins, herbs, or OTC drugs) aduke24 04/09/2024 Avoidance of saunas or hot tubs aduke204/09/2024 Indications for ultrasonography aduke204/09/2024 Comminucation Barriers aduke 24 04/09/2024 Anticipated course of care aduke204/09/2024 Toxoplasmosis precautions (cats/raw meat) aduke24 04/09/2024 Sexual activity aduke24 04/09/2024 Exercise 04/09/2024 Tobacco/smoking cess ation counseling (ask, advise, assess, assist, and arrange) non smoker 04/09/2024 Barriers to Care 04/09/2024 Environmental/work hazards a duke24 04/09/2024 Depression/Anxiety ( should be performed at least once during period) 04/09/2024 WIC/Hands Referral pop given 04/09/2024 Nutrition counseling ; special diet; dietary precautions (mercury, listeriosis) 04/09/2024 Dental Care / Refer to Dentist 04/09/2024 Seat belt use 04/09/2024 Childbirth classes/hospital facilities 04/09/2024 04/09/2024 Screening for aneuploidy tang ke24 Second Trimester Discussed Date Discussion Item Discussion Note Discuss ed By Third Trimester Discussed Date Discussion Item Discussion Note Discuss ed By Delivery Information Delivery Date Delivery Type Labor Anesthesia Weeks Gestation Incision Type Labor Labor Length Hrs Delivered By Post Complications Tubal Sterilization Discharge Date Comments Discharge Information Feeding Method Contraceptive Method Maternal HG B and HCT Levels Ob Episode Information Episode Created Date Number of Fetuses Patient Bloodtype Patient rh Status Prepregnancy Weight lbs Domestic Partner Domestic Partner Phone Father Name Ultrasound Manager Status 06/07/19 17 1 CLOSED Fetus Data First Name Last Name Admitted to NICU Weight (g) Sex Living Outcome Pediatric Complications Fetus ID Race Codes Race Delivery Type 4634 Rolo Calculation Initial Rolo Date Initial Exam Date Initial Exam Provider Initial Ultrasound Date Last Menstrual Period Date Ultra Sound Weeks Gestation 0 Eighteen To Twenty Week Rolo Update Ultra Sound Date Fundal Height At Umbil Quickening Date Ultra Sound Latest Weeks Gestation Final Rolo Confirmed By Final Rolo Confirmed Date Final Rolo Date Ultra Sound Latest Days Gestation 0 0 Menstrual History Last Menstrual Date Menses Monthly On Bcp Conception Prior Menses Frequency Hcg Plus Date Menarche Onset Age Delivery Information Delivery Date Delivery Type Labor Anesthesia Weeks Gestation Incision Type Labor Labor Length Hrs Delivered By Post Complications Tubal Sterilization Discharge Date Comments 0 8 SAB at home Discharge Information Feeding Method Contraceptive Method Maternal HG B and HCT Levels Ob Episode Information Episode Created Date Number of Fetuses Patient Bloodtype Patient rh Status Prepregnancy Weight lbs Domestic Partner Domestic Partner Phone Father Name Ultrasound Manager Status 06/07/19 17 1 CLOSED Fetus Data First Name Last Name Admitted to NICU Weight (g) Sex Living Outcome Pediatric Complications Fetus ID Race Codes Race Delivery Type 2381.35 8 M Prematur e 4639 Rolo Calculation Initial Rolo Date Initial Exam Date Initial Exam Provider Initial Ultrasound Date Last Menstrual Period Date Ultra Sound Weeks Gestation 0 Eighteen To Twenty Week Rolo Update Ultra Sound Date Fundal Height At Umbil Quickening Date Ultra Sound Latest Weeks Gestation Final Rolo Confirmed By Final Rolo Confirmed Date Final Rolo Date Ultra Sound Latest Days Gestation 0 0 Menstrual History Last Menstrual Date Menses Monthly On Bcp Conception Prior Menses Frequency Hcg Plus Date Menarche Onset Age Delivery Information Delivery Date Delivery Type Labor Anesthesia Weeks Gestation Incision Type Labor Labor Length Hrs Delivered By Post Complications Tubal Sterilization Discharge Date Comments 5 34.3 Poss labor, bradycard ia, Stat c/s, LST inc baby xfer to [facility] . Discharge Information Feeding Method Contraceptive Method Maternal HG B and HCT Levels Ob Episode Information Episode Created Date Number of Fetuses Patient Bloodtype Patient rh Status Prepregnancy Weight lbs Domestic Partner Domestic Partner Phone Father Name Ultrasound Manager Status 06/07/19 17 1 CLOSED Fetus Data First Name Last Name Admitted to NICU Weight (g) Sex Living Outcome Pediatric Complications Fetus ID Race Codes Race Delivery Type 4635 Rolo Calculation Initial Rolo Date Initial Exam Date Initial Exam Provider Initial Ultrasound Date Last Menstrual Period Date Ultra Sound Weeks Gestation 0 Eighteen To Twenty Week Rolo Update Ultra Sound Date Fundal Height At Umbil Quickening Date Ultra Sound Latest Weeks Gestation Final Rolo Confirmed By Final Rolo Confirmed Date Final Rolo Date Ultra Sound Latest Days Gestation 0 0 Menstrual History Last Menstrual Date Menses Monthly On Bcp Conception Prior Menses Frequency Hcg Plus Date Menarche Onset Age Delivery Information Delivery Date Delivery Type Labor Anesthesia Weeks Gestation Incision Type Labor Labor Length Hrs Delivered By Post Complications Tubal Sterilization Discharge Date Comments 0 5 SAB at home Discharge Information Feeding Method Contraceptive Method Maternal HG B and HCT Levels Ob Episode Information Episode Created Date Number of Fetuses Patient Bloodtype Patient rh Status Prepregnancy Weight lbs Domestic Partner Domestic Partner Phone Father Name Ultrasound Manager Status 06/07/19 17 1 CLOSED Fetus Data First Name Last Name Admitted to NICU Weight (g) Sex Living Outcome Pediatric Complications Fetus ID Race Codes Race Delivery Type 2636.27 6704 F Full Term 4640 Rolo Calculation Initial Rolo Date Initial Exam Date Initial Exam Provider Initial Ultrasound Date Last Menstrual Period Date Ultra Sound Weeks Gestation 0 Eighteen To Twenty Week Rolo Update Ultra Sound Date Fundal Height At Umbil Quickening Date Ultra Sound Latest Weeks Gestation Final Rolo Confirmed By Final Rolo Confirmed Date Final Rolo Date Ultra Sound Latest Days Gestation 0 0 Menstrual History Last Menstrual Date Menses Monthly On Bcp Conception Prior Menses Frequency Hcg Plus Date Menarche Onset Age Delivery Information Delivery Date Delivery Type Labor Anesthesia Weeks Gestation Incision Type Labor Labor Length Hrs Delivered By Post Complications Tubal Sterilization Discharge Date Comments 7 37 [facility] Discharge Information Feeding Method Contraceptive Method Maternal HG B and HCT Levels Ob Episode Information Episode Created Date Number of Fetuses Patient Bloodtype Patient rh Status Prepregnancy Weight lbs Domestic Partner Domestic Partner Phone Father Name Ultrasound Manager Status 06/07/19 17 1 CLOSED Fetus Data First Name Last Name Admitted to NICU Weight (g) Sex Living Outcome Pediatric Complications Fetus ID Race Codes Race Delivery Type 2466.17 9704 M Full Term 4638 Vaginal Rolo Calculation Initial Rolo Date Initial Exam Date Initial Exam Provider Initial Ultrasound Date Last Menstrual Period Date Ultra Sound Weeks Gestation 0 Eighteen To Twenty Week Rolo Update Ultra Sound Date Fundal Height At Umbil Quickening Date Ultra Sound Latest Weeks Gestation Final Rolo Confirmed By Final Rolo Confirmed Date Final Rolo Date Ultra Sound Latest Days Gestation 0 0 Menstrual History Last Menstrual Date Menses Monthly On Bcp Conception Prior Menses Frequency Hcg Plus Date Menarche Onset Age Delivery Information Delivery Date Delivery Type Labor Anesthesia Weeks Gestation Incision Type Labor Labor Length Hrs Delivered By Post Complications Tubal Sterilization Discharge Date Comments 3 37.4 w/1s t degree lac and repair. per KG (Kevin Feng) Discharge Information Feeding Method Contraceptive Method Maternal HG B and HCT Levels Ob Episode Information Episode Created Date Number of Fetuses Patient Bloodtype Patient rh Status Prepregnancy Weight lbs Domestic Partner Domestic Partner Phone Father Name Ultrasound Manager Status 06/07/19 17 1 CLOSED Fetus Data First Name Last Name Admitted to NICU Weight (g) Sex Living Outcome Pediatric Complications Fetus ID Race Codes Race Delivery Type 4636 Rolo Calculation Initial Rolo Date Initial Exam Date Initial Exam Provider Initial Ultrasound Date Last Menstrual Period Date Ultra Sound Weeks Gestation 0 Eighteen To Twenty Week Rolo Update Ultra Sound Date Fundal Height At Umbil Quickening Date Ultra Sound Latest Weeks Gestation Final Rolo Confirmed By Final Rolo Confirmed Date Final Rolo Date Ultra Sound Latest Days Gestation 0 0 Menstrual History Last Menstrual Date Menses Monthly On Bcp Conception Prior Menses Frequency Hcg Plus Date Menarche Onset Age Delivery Information Delivery Date Delivery Type Labor Anesthesia Weeks Gestation Incision Type Labor Labor Length Hrs Delivered By Post Complications Tubal Sterilization Discharge Date Comments 0 5 SAB at home Discharge Information Feeding Method Contraceptive Method Maternal HG B and HCT Levels Ob Episode Information Episode Created Date Number of Fetuses Patient Bloodtype Patient rh Status Prepregnancy Weight lbs Domestic Partner Domestic Partner Phone Father Name Ultrasound Manager Status 06/07/19 17 1 CLOSED Fetus Data First Name Last Name Admitted to NICU Weight (g) Sex Living Outcome Pediatric Complications Fetus ID Race Codes Race Delivery Type 2579.57 7704 F Full Term [id number] Vaginal Rolo Calculation Initial Rolo Date Initial Exam Date Initial Exam Provider Initial Ultrasound Date Last Menstrual Period Date Ultra Sound Weeks Gestation 0 Eighteen To Twenty Week Rolo Update Ultra Sound Date Fundal Height At Umbil Quickening Date Ultra Sound Latest Weeks Gestation Final Rolo Confirmed By Final Rolo Confirmed Date Final Rolo Date Ultra Sound Latest Days Gestation 0 0 Menstrual History Last Menstrual Date Menses Monthly On Bcp Conception Prior Menses Frequency Hcg Plus Date Menarche Onset Age Delivery Information Delivery Date Delivery Type Labor Anesthesia Weeks Gestation Incision Type Labor Labor Length Hrs Delivered By Post Complications Tubal Sterilization Discharge Date Comments 1 37.5 eating disorder, sga, hypokalem ia, DWD MLE with repair, [facility], [facility] Discharge Information Feeding Method Contraceptive Method Maternal HG B and HCT Levels Ob Episode Information Episode Created Date Number of Fetuses Patient Bloodtype Patient rh Status Prepregnancy Weight lbs Domestic Partner Domestic Partner Phone Father Name Ultrasound Manager Status 05/01/19 21 1 CLOSED Fetus Data First Name Last Name Admitted to NICU Weight (g) Sex Living Outcome Pediatric Complications Fetus ID Race Codes Race Delivery Type , Spontane ous [id number] Rolo Calculation Initial Rolo Date Initial Exam Date Initial Exam Provider Initial Ultrasound Date Last Menstrual Period Date Ultra Sound Weeks Gestation 0 Eighteen To Twenty Week Rolo Update Ultra Sound Date Fundal Height At Umbil Quickening Date Ultra Sound Latest Weeks Gestation Final Rolo Confirmed By Final Rool Confirmed Date Final Rolo Date Ultra Sound Latest Days Gestation 0 0 Menstrual History Last Menstrual Date Menses Monthly On Bcp Conception Prior Menses Frequency Hcg Plus Date Menarche Onset Age Delivery Information Delivery Date Delivery Type Labor Anesthesia Weeks Gestation Incision Type Labor Labor Length Hrs Delivered By Post Complications Tubal Sterilization Discharge Date Comments 9 ectopic at 9 weeks Discharge Information Feeding Method Contraceptive Method Maternal HG B and HCT Levels Ob Episode Information Episode Created Date Number of Fetuses Patient Bloodtype Patient rh Status Prepregnancy Weight lbs Domestic Partner Domestic Partner Phone Father Name Ultrasound Manager Status 05/01/19 21 1 CLOSED Fetus Data First Name Last Name Admitted to NICU Weight (g) Sex Living Outcome Pediatric Complications Fetus ID Race Codes Race Delivery Type 2806.37 3704 M Full Term [id number] Rolo Calculation Initial Rolo Date Initial Exam Date Initial Exam Provider Initial Ultrasound Date Last Menstrual Period Date Ultra Sound Weeks Gestation 0 Eighteen To Twenty Week Rolo Update Ultra Sound Date Fundal Height At Umbil Quickening Date Ultra Sound Latest Weeks Gestation Final Rolo Confirmed By Final Rolo Confirmed Date Final Rool Date Ultra Sound Latest Days Gestation 0 0 Menstrual History Last Menstrual Date Menses Monthly On Bcp Conception Prior Menses Frequency Hcg Plus Date Menarche Onset Age Delivery Information Delivery Date Delivery Type Labor Anesthesia Weeks Gestation Incision Type Labor Labor Length Hrs Delivered By Post Complications Tubal Sterilization Discharge Date Comments 0 [facility], no issues per pt other then low potassium , delivered Monty Discharge Information Feeding Method Contraceptive Method Maternal HG B and HCT Levels"
--- OUTSIDE RECORDS SUMMARY | 2024-09-01 20:52 | XMS_ITS | Encounter Summary ---
[facility] Address [address] [place] [id number] Care Team Providers Care Community Health Nurse Name Role Phone Ivyashlyn Valentinoseven JOLENE Primary Care Provider + [phone] Encounter Details Date Type Department Care Team (Late st Contact Info) Description 06/26/2024 Results Follow-Up [facility] [address] [address] Koby Roberts MD [address] [place] [address] Social History Tobacco Use Types Packs/Day Years Used Date Smoking Tobacco: Never Smokeless Tobacco: Never Alcohol Use Standard Drinks/Week Comments Never 0 (1 standard drink = 0.6 oz pur e alcohol) [facility] Utilities Answer Date Recorded In the past 12 months has [employer], gas, oil, or water [employer] threatened to shut off services in your [...] and heating? Not hard at all 05/28/2024 [facility] [place] of Occupat ional Health - Occupational Stress [...] GED or equivalent No 05/28/2024 Preferred Language Taiwanese 05/28/2024 PHQ-2 Answer Date Recorded Patient Health [...] Info) Description 09/09/2024 9:30 AM EDT Routine [facility] [address] [place] [address] Jacey Mathews, LOAD OUT SUPERVISOR [address] [facility] [address] [place] [address] 09/09/2024 9:30 AM EDT Ancillary Procedure [facility] [address] [place] [address] documented as of this encounter Visit Diagnoses Not on filedocumented in this encounter Additional Health Concerns Assessment Noted Time PHQ-2 Depression Total Score: 2 05/28/19 25 4:39 PM EDT documented as of this encounter Care Teams Community Health Nurse Relationship Specialty Start Date End Date Norma Friedman APRN [address] [place] G[address] [place]H [address] PCP - General Family Medicine 05/14/24 documented as of this encounter
[2024-09-01 21:03] VITALS: BMI 27.3
[2024-09-01 21:10] VITALS: BP 111/77; PULSE 84; RESP 16; TEMP 37.3; O2SAT 99; BMI 27.1
[2024-09-01 21:20] LABS: Microscopic, Urine URINE MICROSCOPIC (MICROSCOPIC)
[2024-09-01 21:24] LABS: Bilirubin,Urine Negative (Negative); Color,Urine YELLOW (Yellow); Glucose,Urine (UA) Negative (Negative); Ketones,Urine Negative (Negative); Leukocyte Esterase,Urine Negative (Negative); PH,Urine 8.5 (5.0-8.5); Protein,Urine 2+ (Negative); Specific Gravity, Urine 1.010 (1.005-1.030); Urobilinogen,Urine 1.0 EU/dl (0.2)
[2024-09-01 21:40] LABS: Hematocrit 29.0 % (37.0-47.0); Hemoglobin 10.0 g/dL (12.2-16.2); Immature Granulocytes % 0.4 %; Mean Corpuscular HGB Conc 34.5 g/dL (31.8-35.4); Mean Corpuscular Hemoglobin 30.0 pg (27.0-31.2); Mean Corpuscular Volume 87.1 fl (81-99); Nucleated Red Blood Cells % 0 %; Platelet Count 246 K/mm3 (142-424); Red Blood Count 3.33 M/mm3 (4.20-5.40); Red Cell Distribution Width-SD 41.4 fL; White Blood Count 11.1 K/mm3 (4.8-10.8)
[2024-09-01 21:50] LABS: Chloride 94 mmol/L (98-107); Sodium 132 mmol/L (136-145)
[2024-09-01 21:53] LABS: Alanine Aminotransferase 17 U/L (12-78); Alkaline Phosphatase 91 U/L (38-126); Aspartate Amino Transferase 32 U/L (14-36); Bilirubin,Total 0.6 mg/dl (0.2-1.3); Blood Urea Nitrogen 8 mg/dl (7-17); Calcium 9.5 mg/dl (8.4-10.2); Carbon Dioxide 31 mmol/L (22.0-30.0); Creatinine Clearance Estimated 228 mL/min (50-200); Creatinine,Serum 0.40 mg/dl (0.52-1.04); Estimated Glomerular Filt Rate 184 ml/min (>60); GFR (African American) 222 ML/MIN (>60); Glucose 85 mg/dl (74-100); Magnesium 1.3 mg/dl (1.6-2.3); Total Protein,Serum 7.0 g/dl (6.3-8.2)
[2024-09-01 21:56] LABS: Potassium 2.6 mmoL/L (3.5-5.1)
[2024-09-01 21:59] LABS: Anion Gap 9.6 mEq/L (5-15)
[2024-09-01 22:08] LABS: WBC,Urine Occasional #/hpf (0-3)
[2024-09-01 22:11] LABS: Amorphous Sediment,Urine 1+ /lpf
--- NOTE | 2024-09-01 22:11 | ECG_ITS ---
APPROVED REPORT Exam: Resting ECG HR:73 bpm ECG Measurements Heart Rate 73 AXES WA 151 P 46 QRSd 86 QRS 33 QT 384 T 31 QTc 410 Conclusion SINUS RHYTHM NORMAL ECG UNCONFIRMED REPORT Electronically signed by : Martín Gonsales MD 09/02/2024 08:05:02
[2024-09-01 22:17] LABS: Albumin Level 3.8 g/dl (3.5-5.0); Albumin/Globulin Ratio 1.2 (1.1-1.8); Globulin 3.2 g/dL (1.3-3.2)
[2024-09-01] MEDS: LACTATED RINGERS 1000ML 1,000 ML 125 ML IV (22:45)
[2024-09-01 22:50] VITALS: PULSE 80
[2024-09-01] MEDS: MAGNESIUM SULFATE IN WATER 2 GM/50 ML PIGGYBACK IV ×2 (22:54→23:50)
[2024-09-01] MEDS: ONDANSETRON 4MG/2ML VIAL 4 MG IV (23:20)
[2024-09-02] VITALS: PULSE 90
[2024-09-02] MEDS: MAGNESIUM SULFATE IN WATER 2 GM/50 ML PIGGYBACK IV (00:55)
[2024-09-02 04:00] VITALS: PULSE 80
[2024-09-02] MEDS: ACETAMINOPHEN 500MG TAB 1000 MG PO (06:35)
[2024-09-02 08:00] VITALS: PULSE 100
--- NOTE | 2024-09-02 08:02 | HMH.PHAINT1 ---
Pharmacy Intervention Comments: MEDICATION RECONCILIATION COMPLETED ON PATIENT USING EXTERNAL FILL HISTORY FROM PHARMACY. -GLO JONES, JAND
[2024-09-02 09:11] LABS: Alanine Aminotransferase 18 U/L (12-78); Albumin Level 3.3 g/dl (3.5-5.0); Albumin/Globulin Ratio 1.1 (1.1-1.8); Alkaline Phosphatase 71 U/L (38-126); Anion Gap 7.2 mEq/L (5-15); Aspartate Amino Transferase 36 U/L (14-36); Bilirubin,Total 0.4 mg/dl (0.2-1.3); Blood Urea Nitrogen 4 mg/dl (7-17); Calcium 8.8 mg/dl (8.4-10.2); Carbon Dioxide 29 mmol/L (22.0-30.0); Chloride 102 mmol/L (98-107); Creatinine Clearance Estimated 151 mL/min (50-200); Creatinine,Serum 0.60 mg/dl (0.52-1.04); Estimated Glomerular Filt Rate 115 ml/min (>60); GFR (African American) 139 ML/MIN (>60); Globulin 2.9 g/dL (1.3-3.2); Glucose 73 mg/dl (74-100); Potassium 3.2 mmoL/L (3.5-5.1); Sodium 135 mmol/L (136-145); Total Protein,Serum 6.2 g/dl (6.3-8.2)
--- NOTE | 2024-09-02 09:51 | EXP.HP ---
History of Present Illness *Admission Date: 09/01/24 *Reason for visit:: Hyperemesis, hypokalemia. *History of present illness: She is a 34-year-old 6 para 5 lady at 28 weeks gestational age. She has a history of hypokalemia and hyperemesis. She was just recently discharged from [facility] after having been admitted for hypokalemia and hypomagnesemia. She says that she cannot keep anything down and feels like her stomach is full and bloated every time she eats something. She has had this and all her other pregnancies and has had to be admitted in the past for hypokalemia. She has seen station air traffic control specialist and they just felt it was as a result of her not being able to keep anything down. She is an otherwise healthy lady. She has been taking Phenergan suppositories to help with her nausea. She has tried other medications and these have not helped at all. [facility] Disclaimer: The information contained in this section may have been updated after the patient was seen, as this information can be updated by other users. Medical History Missed GERD (gastroesophageal reflux disease) Grand multipara History of recurrent miscarriages History of miscarriage, currently History of anemia Urinary tract infection History of gastroesophageal reflux (GERD) Endometriosis Dysmenorrhea Menorrhagia History of miscarriage History of fainting History of heavy periods Surgical History History of tympanostomy tube placement History of section Hx of section Family History Family history of diabetes mellitus type II Family history of myocardial infarction Social History Smoking Status: Never smoker alcohol intake: never substance use type: denies use current occupational status: unemployed Travel in the last 8 weeks?: None household members: spouse housing: house 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 Have you lived/traveled outside US in past 30 days?: No Contact w/someone who lives/traveled outside US past 30 days?: No Exposure to someone with infectious disease in past 14 days?: No Do you have a fever (greater than 100.4 F or 38 C)?: No Have you tested positive for COVID-19?: No Exposed to someone with COVID-19 in past 14 days?: No Do you have a sore throat?: No Do you have a cough?: No Do you have any weakness?: No Do you have any diarrhea?: No Are you experiencing any unusual bleeding?: No Do you have any muscle aches/pain?: No Do you have any abdominal pain?: No Are you experiencing loss of taste or smell?: No Other Medical History Have you received the Flu Vaccine for this season: No Have you received the Pneumonia Vaccine: No Review of Systems Review of Systems Review of systems:: pertinent systems reviewed and negative unless documented below Meds Home Medications and Allergies Home Medications ?Medication ?Instructions ?Recorded ?Confirmed ?Type buspirone 5 mg tablet 5 mg PO TID 09/02/24 09/02/24 History omeprazole 20 mg capsule,delayed 20 mg PO DAILY 09/02/24 09/02/24 History release vit no.95-ferrous 1 tab PO DAILY 09/02/24 09/02/24 History fumarate 28 mg-folic acid 800 mcg tablet () sucralfate 1 gram tablet 1 g PO ACHS 09/02/24 09/02/24 History thiamine HCl (vitamin B1) 100 mg 100 mg PO DAILY 09/02/24 09/02/24 History tablet New Prescriptions to Start Prescriptions: Allergies Allergy/AdvReac Type Severity Reaction Status Date / Time No Known Allergies Allergy Verified 06/21/24 18:15 Exam Data for Last 24 hours Vital signs and Labs for Last 24 Hours: Temp Pulse Resp BP Pulse Ox O2 Del Method 99.2 F 100 H 16 111/77 99 Room Air 09/01/24 21:10 09/02/24 08:00 09/01/24 21:10 09/01/24 21:10 09/01/24 21:10 09/01/24 21:10 Laboratory Results - last 24 hr 09/01/24 20:52: Urine Color Yellow, Urine Appearance Clear, Urine pH 8.5, Ur Specific [place] 1.010, Urine Protein 2+ A, Urine Glucose (UA) Negative, Urine Ketones Negative, Urine Blood Negative, Urine Nitrate Negative, Urine Bilirubin Negative, Urine Urobilinogen 1.0, Ur Leukocyte Esterase Negative, Urine RBC None, Urine WBC Occasional, Ur Squamous Epith Cells 5-10, Amorphous Sediment 1+, Urine Bacteria None 09/01/24 21:16: WBC 11.1 H, RBC 3.33 L, Hgb 10.0 L, Hct 29.0 L, MCV 87.1, MCH 30.0, MCHC 34.5, RDW 13.3, Plt Count 246, MPV 11.9 H, Neut % (Auto) 60.4, Lymph % (Auto) 29.3, [place] % (Auto) 8.5, Eos % (Auto) 1.2, Baso % (Auto) 0.2, Neut # (Auto) 6.7, Lymph # (Auto) 3.3, [place] # (Auto) 0.9, Eos # (Auto) 0.1, Baso # (Auto) 0.0, Sodium 132 L, Potassium 2.6 L*, Chloride 94 L, Carbon Dioxide 31 H, Anion Gap 9.6, BUN 8, Creatinine 0.40 L, Estimated Creat Clear 228, Estimated GFR 184, Est GFR ( Amer) 222, Glucose 85, Calcium 9.5, Magnesium 1.3 L, Total Bilirubin 0.6, AST 32, ALT 17, Alkaline Phosphatase 91, Total Protein 7.0, Albumin 3.8, Globulin 3.2, Albumin/Globulin Ratio 1.2 09/02/24 08:50: Sodium 135 L, Potassium 3.2 L D, Chloride 102, Carbon Dioxide 29, Anion Gap 7.2, BUN 4 L D, Creatinine 0.60 D, Estimated Creat Clear 151, Estimated GFR 115, Est GFR ( Amer) 139 D, Glucose 73 L, Calcium 8.8, Total Bilirubin 0.4, AST 36, ALT 18, Alkaline Phosphatase 71, Total Protein 6.2 L, Albumin 3.3 L D, Globulin 2.9, Albumin/Globulin Ratio 1.1 I & O for Last 24 hours: Intake & Output 08/30/24 08/31/24 09/01/24 09/02/24 11:59 11:59 11:59 11:59 Output Total 1399 / 1400 Balance -1400 / -1400 Weight 158 lb Constitutional Constitutional: no acute distress *Routine HEENT Exam Head: Present normocephalic Eye: Present EOMI and PERRL ENT: Present mucous membranes moist *Routine Neck Exam Neck: Present supple; Absent lymphadenopathy *Routine Respiratory Exam Respiratory: Present CTA bilaterally *Routine Cardiovascular Exam Cardiovascular: Present RRR *Routine Abdominal Exam Abdominal: Present soft and normoactive bowel sounds; Absent tenderness *Routine Rectal Exam Rectal:: deferred *Routine Genitalia Exam Genitalia:: deferred *Routine Extremities Exam Extremities: Absent cyanosis, clubbing or edema *Routine Skin Exam Skin: Present warm; Absent rash *Routine Neurological Exam Neurological: Present alert and oriented X3 Assessment and Plan *Assessment and plan (1) Vomiting affecting : Status: Acute Category: Medical Code(s): O21.9 - Vomiting of , unspecified (2) Hypokalemia: Status: Acute Category: Medical Code(s): E87.6 - Hypokalemia Plan 1. We will plan to replace her potassium with IV potassium. 2. We will consider oral potassium as well. 3. When her potassium is stabilized we will plan to send her home and treat her as an outpatient.
[2024-09-02 12:00] VITALS: PULSE 80
--- NOTE | 2024-09-02 13:05 | P.DS_ITS ---
General Admission date:: 09/02/24 Discharge date: 09/02/24 HPI HPI HPI: She is a 34-year-old 6 para 5 lady at 28 weeks gestational age. She has a history of hypokalemia and hyperemesis. She was just recently discharged from [facility] after having been admitted for hypokalemia and hypomagnesemia. She says that she cannot keep anything down and feels like her stomach is full and bloated every time she eats something. She has had this and all her other pregnancies and has had to be admitted in the past for hypokalemia. She has seen analysis internship and they just felt it was as a result of her not being able to keep anything down. She is an otherwise healthy lady. She has been taking Phenergan suppositories to help with her nausea. She has tried other medications and these have not helped at all. Hospital Course Hospital Course Hospital Course: When she arrived her potassium was low and she has now received a total of 10 bags of potassium. Her potassium this morning was 3.2 and after that we had given her 2 more bags to the total of 10 bags. We will plan to send her home today and we will follow-up with her for twice weekly infusions of potassium. We will start with giving her 2 bags twice weekly and see how she does with this. Will check her blood work as well each time. We will make arrangements for this in outpatient infusions. If she has not further episodes of severely low potassium we will consider admission again. We also send her home with oral potassium as well. Her condition on discharge is stable and improved. Exam Data for Last 24 hours Vital signs and Labs for Last 24 Hours: Temp Pulse Resp BP Pulse Ox O2 Del Method 99.2 F 100 H 16 111/77 99 Room Air 09/01/24 21:10 09/02/24 08:00 09/01/24 21:10 09/01/24 21:10 09/01/24 21:10 09/01/24 21:10 Laboratory Results - last 24 hr 09/01/24 20:52: Urine Color Yellow, Urine Appearance Clear, Urine pH 8.5, Ur Specific [place] 1.010, Urine Protein 2+ A, Urine Glucose (UA) Negative, Urine Ketones Negative, Urine Blood Negative, Urine Nitrate Negative, Urine Bilirubin Negative, Urine Urobilinogen 1.0, Ur Leukocyte Esterase Negative, Urine RBC None, Urine WBC Occasional, Ur Squamous Epith Cells 5-10, Amorphous Sediment 1+, Urine Bacteria None 09/01/24 21:16: WBC 11.1 H, RBC 3.33 L, Hgb 10.0 L, Hct 29.0 L, MCV 87.1, MCH 30.0, MCHC 34.5, RDW 13.3, Plt Count 246, MPV 11.9 H, Neut % (Auto) 60.4, Lymph % (Auto) 29.3, [place] % (Auto) 8.5, Eos % (Auto) 1.2, Baso % (Auto) 0.2, Neut # (Auto) 6.7, Lymph # (Auto) 3.3, [place] # (Auto) 0.9, Eos # (Auto) 0.1, Baso # (Aut o) 0.0, Sodium 132 L, Potassium 2.6 L*, Chloride 94 L, Carbon Dioxide 31 H, Anion Gap 9.6, BUN 8, Creatinine 0.40 L, Estimated Creat Clear 228, Estimated GFR 184, Est GFR ( Amer) 222, Glucose 85, Calcium 9.5, Magnesium 1.3 L, Total Bilirubin 0.6, AST 32, ALT 17, Alkaline Phosphatase 91, Total Protein 7.0, Albumin 3.8, Globulin 3.2, Albumin/Globulin Ratio 1.2 09/02/24 08:50: Sodium 135 L, Potassium 3.2 L D, Chloride 102, Carbon Dioxide 29, Anion Gap 7.2, BUN 4 L D, Creatinine 0.60 D, Estimated Creat Clear 151, Estimated GFR 115, Est GFR ( Amer) 139 D, Glucose 73 L, Calcium 8.8, Total Bilirubin 0.4, AST 36, ALT 18, Alkaline Phosphatase 71, Total Protein 6.2 L, Albumin 3.3 L D, Globulin 2.9, Albumin/Globulin Ratio 1.1 I & O for Last 24 hours: Intake & Output 08/31/24 09/01/24 09/02/24 09/03/24 11:59 11:59 11:59 11:59 Output Total 1400 / 1400 Balance -1400 / -1400 Weight 158 lb Constitutional Constitutional: no acute distress *Routine HEENT Exam Head: Present normocephalic *Routine Neck Exam Neck: Present full ROM *Routine Respiratory Exam Respiratory: Present normal respiratory effort; Absent accessory muscle use Results Data Completed and Pending Labs on day of discharge: Labs from last 24 hours 09/02/24 09/01/24 09/01/24 08:50 21:16 20:52 WBC 11.1 H RBC 3.33 L Hgb 10.0 L Hct 29.0 L MCV 87.1 MCH 30.0 MCHC 34.5 RDW 13.3 Plt Count 246 MPV 11.9 H Neut % (Auto) 60.4 Lymph % (Auto) 29.3 [place] % (Auto) 8.5 Eos % (Auto) 1.2 Baso % (Auto) 0.2 Neut # (Auto) 6.7 Lymph # (Auto) 3.3 [place] # (Auto) 0.9 Eos # (Auto) 0.1 Baso # (Auto) 0.0 Sodium 135 L 132 L Potassium 3.2 L D 2.6 L* Chloride 102 94 L Carbon Dioxide 29 31 H Anion Gap 7.2 9.6 BUN 4 L D 8 Creatinine 0.60 D 0.40 L Estimated Creat Clear 151 228 Estimated GFR 115 184 Est GFR ( Amer) 139 D 222 Glucose 73 L 85 Calcium 8.8 9.5 Magnesium 1.3 L Total Bilirubin 0.4 0.6 AST 36 32 ALT 18 17 Alkaline Phosphatase 71 91 Total Protein 6.2 L 7.0 Albumin 3.3 L D 3.8 Globulin 2.9 3.2 Albumin/Globulin Ratio 1.1 1.2 Urine Color Yellow Urine Appearance Clear Urine pH 8.5 Ur Specific [place] 1.010 Urine Protein 2+ A Urine Glucose (UA) Negative Urine Ketones Negative Urine Blood Negative Urine Nitrate Negative Urine Bilirubin Negative Urine Urobilinogen 1.0 Ur Leukocyte Esterase Negative Urine RBC None Urine WBC Occasional Ur Squamous Epith Cells 5-10 Amorphous Sediment 1+ Urine Bacteria None DS: Diagnosis Discharge Diagnosis (1) Vomiting affecting : Status: Acute Code(s): O21.9 - Vomiting of , unspecified (2) Hypokalemia: Status: Acute Code(s): E87.6 - Hypokalemia Meds Home Medications and Allergies Home Medications ?Medication ?Instructions ?Recorded ?Confirmed ?Type buspirone 5 mg tablet 5 mg PO TID 09/02/24 5 History omeprazole 20 mg capsule,delayed 20 mg PO DAILY 09/02/24 History release potassium chloride 10 mEq 10 meq PO BID #60 tabs 09/02 Rx tablet,extended release(part/cryst) (Klor-Con M) vit no.95-ferrous 1 tab PO DAILY 09/02/24 History fumarate 28 mg-folic acid 800 mcg tablet () sucralfate 1 gram tablet 1 g PO ACHS 09/02/24 5 History thiamine HCl (vitamin B1) 100 mg 100 mg PO DAILY 09/0209/02/24 History tablet New Prescriptions to Start Prescriptions: potassium chloride [Klor-Con M10] Boby Ramon Allergies Allergy/AdvReac Type Severity Reaction Status Date / Time No Known Allergies Allergy Verified 06/21/24 18:15 Discharge Plan Disposition Patient Disposition: Home, Self-Care Follow up Plan Prescriptions/Medication Reconciliation: New potassium chloride [Klor-Con M10] 10 mEq tablet,ER particles/crystals 10 meq PO BID Qty: 60 4RF Continued omeprazole 20 mg Capsule,Delayed Release(Dr/Ec) 20 mg PO DAILY buspirone 5 mg tablet 5 mg PO TID Patient Comments: TAKE 1 TABLET BY MOUTH THREE TIMES DAILY sucralfate 1 gram tablet 1 g PO ACHS Patient Comments: TAKE 1 TABLET BY MOUTH 4 TIMES DAILY BEFORE MEAL(S) AND AT BEDTIME thiamine HCl (vitamin B1) 100 mg tablet 100 mg PO DAILY PNV no.95-ferrous fumarate-FA [] 28 mg iron- 800 mcg Tablet 1 tab PO DAILY Problem Reconciliation Problems Reviewed?: Yes Patient Discharge Instructions ACTIVITY: Continue current activity DIET: continue same diet Print Language: German Providers Primary Care Provider: Norma Friedman Admit Provider: Nneka Stanley Attending Provider: Nneka Stanley
== END 2024-09-02 13:43 | disposition home or self-care (01) ==
LOC: OBOUT 06:43 → OB 06:43
PROVIDERS: Nurse Practitioner Obstetrics & Gynecology; Admitting Provider Obstetrics & Gynecology; PCP Nurse Practitioner Family; Visit Provider Obstetrics & Gynecology
DX: O21.9 Vomiting of pregnancy, unspecified (principal); O99.283 Endocrine, nutritional and metabolic diseases complicating pregnancy, third trimester; O99.613 Diseases of the digestive system complicating pregnancy, third trimester; K21.00 Gastro-esophageal reflux disease with esophagitis, without bleeding; E87.6 Hypokalemia; Z91.010 Allergy to peanuts; Z87.59 Personal history of other complications of pregnancy, childbirth and the puerperium; Z3A.28 28 weeks gestation of pregnancy; Z98.891 History of uterine scar from previous surgery; Z79.899 Other long term (current) drug therapy
CPT/HCPCS: 36415; 59025; 80053; 81001; 83497; 83735; 85025; 93005; 96374; 96376; G0378; J2405; J3475; J3480; J7120

== ENCOUNTER 2024-09-05 08:41 | Outpatient (CLI) | payer OTHER, SELFPAY ==
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
--- OUTSIDE RECORDS SUMMARY | 2024-07-22 07:44 | XMS_ITS | Encounter Summary ---
Author Organization [facility] Address [address] [place] [phone] Care Team Providers Care Track Laminating Machine Tender Name Role Phone Norma Friedman APRN Primary Care Provider + [phone] Reason for Referral * Diagnostic Imaging (Routine) - Closed Specialty Diagnoses / Procedures Referred By Tarik pedersen Referred To Contact Radiology Diagnoses care, antepartum, unspecified High risk due to history of labor, antepartum History of prior with small for gestational age Procedures [facility] Kelly Watkins APRN [address] [facility] [address] [place] [address] Phone: tel: fax: [facility] [address] [place] [address] Phone: tel: Referral ID Status Reason Start Date Expiration Date Visits Re quested Visits Authorized [id number] Closed 07/08/2024 10/07/2025 1 1 Reason for Visit * Diagnostic Imaging (Routine) - Closed Specialty Diagnoses / Procedures Referred By Tarik t Referred To Contact Radiology Diagnoses care, antepartum, unspecified High risk due to history of labor, antepartum History of prior with small for gestational age Procedures [facility] Kelly Watkins APRN [address] [facility] [address] [place] [address] Phone: tel: fax: [facility] [address] [place] [address] Phone: tel: Referral ID Status Reason Start Date Expiration Date Visits Re quested Visits Authorized [id number] Closed 07/08/2024 10/07/2025 1 1 Encounter Details Date Type Department Care Team (Late st Contact Info) Description 07/22/2024 7:44 AM EDT - 07/22/2024 11:59 PM EDT Hospital [facility] [address] [place] [phone] Kelly Watkins, HEARING SCREEN COORDINATOR [address] [place] [address] care, antepartum, unspecified ; High risk due to history of labor, antepartum; History of prior with small for gestational age Discharge Disposition: Home or Self Care Social History Tobacco Use Types Packs/Day Years Used Date Smoking Tobacco: Never Smokeless Tobacco: Never Alcohol Use Standard Drinks/Week Comments Never 0 (1 standard drink = 0.6 oz pur e alcohol) [facility] Utilities Answer Date Recorded In the past 12 months has [employer] electric, gas, oil, or water [employer] threatened to shut off services in your [...] and heating? Not hard at all 05/28/2024 [facility] [place] of Occupat ional Health - Occupational Stress [...] GED or equivalent No 05/28/2024 Preferred Language Samoan 05/28/2024 PHQ-2 Answer Date Recorded Patient Health [...] Info) Description 09/09/2024 9:30 AM EDT Routine [facility] [place] [address] Jacey Mathews, HEARING SCREEN COORDINATOR [address] [facility] [address] [place] [address] 09/09/2024 9:30 AM EDT Ancillary Procedure [facility]YN [address] [place] [address] documented as of this encounter Procedures Procedure Name Priority Date/Time Associated Diagnosis Comments [facility] Routine 07/22/2024 9:10 AM EDT care, antepartum, unspecified High risk due to history of labor, antepartum History of prior with small for gestational age documented in this encounter Results * [facility] (07/22/2024 9:10 AM EDT) Anatomical Region Laterality Modality Ultrasound 07/22/2024 8:20 AM EDT Narrative 07/22/2024 9:18 AM EDT PAT NAME: CAROLE [place] MED REC#: [id number] DA: 1990 PAT GEND: F PAT TYPE: O EXAM TRAVIS: [id number] REF PHYS KELLY WATKINS Comparison Studies There [...] EFW (oz) 13 oz EFW by: Hadlock (OIP-AB-AN-FL) Extended Tibia 28.0 mm 20w 1d 17% Jamal Fibula 27.3 mm 19w 5d 17% Jamal Radius 26.9 mm 20w 0d 36% Jamal Ulna 30.0 mm 21w 1d 33% Jamal Cav. septi pel. tr 3.7 mm Hydrologic Modeler 5.4 mm CM 4.7 mm 32% Nicolaides [...] normal IVC: normal 3-vessel view: Appears normal 7-xcglvy-bzabhmk view: Appears normal Rt lung: Appears normal [...] Follow-up as clinically indicated. Coding ======= Description: 25169-80 Detailed Garnett Machine Operator: Cheyenne Spence RDMS Physician: Sebastian Larsen MD, FACOG Electronically signed by: Sebastian Larsen MD, FACOG at: 09:18 Procedure Note Sebastian Larsen MD - 07/22/2024 PAT NAME: CAROLE [place] MED REC#: [id number] DA: [id number] PAT GEND: F PAT TYPE: O EXAM TRAVIS: [id number] REF PHYS KELLY WATKINS Comparison Studies There are no relevant prior studies to which this study is beingcompared Patient Status Outpatient Indication ======== Incomplete anatomy, previous SGA, hx c/s x1 Maternal Assessment Mxyjso290 cm Height (ft)5 ft Height (in)4 in Qpvjdd65 kg Weight (lb)163 lb BMI28.17 kg/m Method ======= Transabdominal ultrasound examination ========= Love . Number of fetuses: 1 Dating ====== Method of dating:based on stated DUSTY GA by prior euxxijfzkd96 w + 1 d DUSTY by prior assessment:12/01/2024 Ultrasound examination on:07/22/2024 GA by U/S based upon:AC, BPD, Femur, HC GA by U/S20 w + 5 d DUSTY by U/S:12/04/2024 Previous dating:based on stated DUSTY, selected on 07/05/2024 Agreed DUSTY of previous datin12/01/2024 Assigned:based on stated DUSTY, selected on 07/22/2024 Assigned GA21 w + 1 d Assigned DUSTY:12/01/2024 hbrbus995 d Biometry Standard BPD47.5 mm 20w 3d 19% Hadlock OFD63.7 mm 21w 5d 69% Jamal HC177.8 mm 20w 2d 9% Hadlock Cerebellum tr22.0 mm 20w 4d 46% Hill AC160.4 mm 21w 1d 43% Hadlock Femur33.9 mm 20w 5d 24% Hadlock Bnfhnkv32.7 mm 21w 0d 40% Jamal HC / AC1.11 EZG029 g 20w 5d 29% Hadlock EFW (lb)0 lb EFW (oz)13 oz EFW by:Hadlock (JDU-BS-FE-FL) Extended Tibia28.0 mm 20w 1d 17% Jamal Seqxiz80.3 mm 19w 5d 17% Jamal Ddtkko83.9 mm 20w 0d 36% Jamal Ulna30.0 mm 21w 1d 33% Jamal Cav. septi pel. tr3.7 mm Vp5.4 mm CM4.7 mm 32% Nicolaides Head / Face / Neck Cephalic index0.75 11% Nicolaides Extremities / Bony Struc FL / BPD0.71 FL / HC0.19 FL / AC0.21 Other Structures KPT965 bpm General Evaluation Cardiac activity present. FHR [...] view:Appears normal SVC:normal IVC:normal 3-vessel view:Appears normal 0-dnxjmz-rtdovdj view:Appears normal Rt lung:Appears normal Lt lung:normal [...] Structures Uterus / Cervix Cervix:Visualized Approach:Transabdominal Cervical lewnvw72.6 mm Ovaries / Tubes / Adnexa Rt ovary:Visualized Lt ovary:Visualized Impression Today's exam reveals a SIUP with biometry consistent with dates. Fetalanatomic survey appears normal. Fluid is normal. The placenta is anterior,left. The TA cervical length appears adequate Recommendation Follow-up as clinically indicated. Coding ======= Description:83846-37 Detailed Garnett Machine Operator: Cheyenne Spence RDMS Physician: Sebastian Larsen MD, FACOG Electronically signed by: Sebastian Larsen MD, FACOG at: 09:18 us Kelly Watkins HEARING SCREEN COORDINATOR IMG US ORDERABLES Final Resu lt documented in this encounter Visit Diagnoses Diagnosis care, antepartum, unspecified High risk due to history of labor, antepartum History of prior with small for gestational age documented in this encounter Additional Health Concerns Assessment Noted Time PHQ-2 Depression Total Score: 2 05/28/19 25 4:39 PM EDT documented as of this encounter Care Teams Track Laminating Machine Tender Relationship Specialty Start Date End Date Norma Friedman APRN [address] [place] G3 RAFAEL[place] APPIAH [address] PCP - General Family Medicine 05/14/24 documented as of this encounter
--- OUTSIDE RECORDS SUMMARY | 2024-07-22 08:00 | XMS_ITS | Encounter Summary ---
Author Organization [facility] Address [address] [place] [phone] Care Team Providers Care Obstetrics Scrub Nurse Name Role Phone Ivyashlyn Norma FERNÁNDEZ Primary Care Provider + [phone] Reason for Visit * Reason Comments incomplete anatomy; hx SGA in prev. preg onelia; prev. c/s Encounter Details Date Type Department Care Team (Late st Contact Info) Description 07/22/2024 8:00 AM EDT Office Visit [facility] MATERNAL MEDICINE [address] [place] [address] [place] [address] Sebastian Larsen MD 1700 [facility] [address] [place] [phone] History of prior with small for gestational age (Primary Dx) Social History Tobacco Use Types Packs/Day Years Used Date Smoking Tobacco: Never Smokeless Tobacco: Never Alcohol Use Standard Drinks/Week Comments Never 0 (1 standard drink = 0.6 oz pur e alcohol) [facility] Utilities Answer Date Recorded In the past 12 months has [employer] electric, gas, oil, or water company threatened [...] and heating? Not hard at all 05/28/2024 [facility] [place] of Occupat ional Health - Occupational Stress [...] Info) Description 09/09/2024 9:30 AM EDT Routine [facility] OBGYN [address] [place] [address] Jacey Mathews, SOFTWARE SALES EXECUTIVE 1700 [facility] [place] [address] [place] [address] 09/09/2024 9:30 AM EDT Ancillary Procedure [facility] OBGYN [address] [place] [address] documented as of this encounter Visit Diagnoses Diagnosis History of prior with small for gestational age - Primary documented in this encounter Additional Health Concerns Assessment Noted Time PHQ-2 Depression Total Score: 2 05/28/19 25 4:39 PM EDT documented as of this encounter Care Teams Obstetrics Scrub Nurse Relationship Specialty Start Date End Date Norma Friedman APRN [address] [place] [address] [place] [address] PCP - General Family Medicine 05/14/24 documented as of this encounter
--- OUTSIDE RECORDS SUMMARY | 2024-07-22 09:10 | XMS_ITS | Encounter Summary ---
[facility] Address [address] [place] [phone] Care Team Providers Care Child Life Therapist Name Role Phone Norma Friedman APRN Primary Care Provider + [phone] Reason for Referral * Consultation (Routine) - Closed Specialty Diagnoses / Procedures Referred By Contac t Referred To Contact Nephrology Diagnoses History of proteinuria syndrome Procedures [place] OFFICE/OUTPATIENT NEW MODERATE MDM 45 MINUTES Staci Jain MD [address] [place] [address] Phone: tel: fax: [place] [address] Phone: tel: Referral ID Status Reason Start Date Expiration Date V isits Requested Visits Authorized [id number] Closed Specialty Services Required 07/22/2024 10/21/2025 1 1 Reason for Visit * Reason Comments Routine Visit * Diagnostic Imaging (Routine) - Closed Specialty Diagnoses / Procedures Referred By Contact Referred To Contact Obstetrics and Gynecology Diagnoses care, subsequent , second trimester Procedures US Ob 14 + Weeks Single or First Gestation Koby Roberts MD [address] [facility] [address] [place] [address] Phone: tel: fax: [facility] O[facility]YN [address] [place] [address] Phone: tel: fax: Referral ID Status Reason Start Date Expiration Date Visits Re quested Visits Authorized [id number] Closed 06/11/2024 09/10/2025 1 1 Encounter Details Date Type Department Care Team (Late st Contact Info) Description 07/22/2024 9:10 AM EDT Routine [facility] OBGYN [address] [phone] Staci Jain MD [address] [address] [place]: 21w1d Social History Tobacco Use Types Packs/Day Years Used Date Smoking Tobacco: Never Smokeless Tobacco: Never Alcohol Use Standard Drinks/Week Comments Never 0 (1 standard drink = 0.6 oz pur e alcohol) [facility] Utilities Answer Date Recorded In the past 12 months has [employer], gas, oil, or water [employer] threatened to shut off services in your [...] heating? Not hard at all 05/28/2024 [facility] of Occupat ional Health - Occupational Stress [...] GED or equivalent No 05/28/2024 Preferred Language Vincentian 05/28/2024 PHQ-2 Answer Date Recorded Patient Health Questionnaire-9 Score 2 05/28/2024 Estimated Date of Delivery Comme nts Yes 12/01/2024 Based on last mt nstrual period of 02/25/2024 Sex and Gender [...] IUGR. Unknown reasons. 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 Transferred care. Will want to be seen in [facility]. Her care is complicated by (and status) [...] about 4 weeks (around 08/19/2024) for in [place]. Staci Jain MD 07/22/2024 documented in this encounter Plan of Treatment Upcoming Encounters Date Type Department Care Team (Late st Contact Info) Description 09/09/2024 9:30 AM EDT Routine [facility] OBGYN [address] [place] [address] Jacey Mathews, INDUSTRIAL HEALTH AND SAFETY PROFESSOR [address] [place] [address] [place] [address] 09/09/2024 9:30 AM EDT Ancillary Procedure [facility] OBGYN [address] [place] [address] Scheduled Orders Name Type Priority [...] AM EDT) Glucose, UA Negative Negative mg/dL [facility] Protein, POC 1+(A) Negative mg/dL [facility] Urine 07/22/2024 10:0 2 AM EDT us Staic Jain MD POINT OF CARE TEST OR DERABLES Final Result [facility]
[address] [place] [address], documented in this encounter Visit Diagnoses Diagnosis Multigravida in second trimester- Primary care, subsequent , second trimester History of proteinuria syndrome History of Other postprocedural status documented in this encounter Additional Health Concerns Assessment Noted Time PHQ-2 Depression Total Score: 2 05/28/19 25 4:39 PM EDT documented as of this encounter Care Teams Child Life Therapist Relationship Specialty Start Date End Date Norma Friedman APRN [address] [place] G[address] RAFAEL[place] APPIAH [id number] PCP - General Family Medicine 05/14/24 documented as of this encounter
--- OUTSIDE RECORDS SUMMARY | 2024-08-19 10:15 | XMS_ITS | Encounter Summary ---
Author Organization [facility] Address [address] [place] [address] Care Team Providers Care Radiology Special Procedure Tech Name Role Phone Norma Friedman APRN Primary Care Provider + [phone] Reason for Visit * Reason Comments Routine Visit Encounter Details Date Type Department Care Team (Late st Contact Info) Description 08/19/2024 10:15 AM EDT Routine [facility] OBGYN [address] [place] [address] Jacey Mathews, MANAGER IMMUNOLOGY [address] [place] [address] GA: 25w1d Social History Tobacco Use Types Packs/Day Years Used Date Smoking Tobacco: Never Smokeless Tobacco: Never Alcohol Use Standard Drinks/Week Comments Never 0 (1 standard drink = 0.6 oz pur e alcohol) [facility] Utilities Answer Date Recorded In the past 12 months has [employer], gas, oil, or water [email or web address] threatened to shut off services in your [...] and heating? Not hard at all 05/28/2024 [facility] [place] [facility] - Occupational Stress [...] GED or equivalent No 05/28/2024 Preferred Language Spanish 05/28/2024 PHQ-2 Answer Date Recorded Patient Health [...] this encounter Progress Notes * Jacey Mathews, MANAGER IMMUNOLOGY - 08/19/2024 10:15 AM EDT Images from [...] Info) Description 09/09/2024 9:30 AM EDT Routine [facility] OBGYN [address] [place] [address] Jacey Mathews APRN [address] [facility] [address] [place] [address] 09/09/2024 9:30 AM EDT Ancillary Procedure [facility] OBGYN [address] [place] [address] documented as of this encounter Visit Diagnoses Diagnosis Vaginal bleeding in - Primary 25 weeks gestation of documented in this encounter Additional Health Concerns Assessment Noted Time PHQ-2 Depression Total Score: 2 05/28/19 4:39 PM EDT documented as of this encounter Care Teams Radiology Special Procedure Tech Relationship Specialty Start Date End Date Norma Friedman APRN [address] [place] [address] [place] [address] PCP - General Family Medicine 05/14/24 documented as of this encounter
--- OUTSIDE RECORDS SUMMARY | 2024-08-19 13:59 | XMS_ITS | Encounter Summary ---
[facility] Address [address] [place] [id number] Care Team Providers Care Distribution Warehouse Manager Name Role Phone Ivyashlyn Norma FERNÁNDEZ Primary Care Provider + [phone] Reason for Visit * Reason Comments Vaginal Bleeding * Auth/Cert (Routine) Specialty Diagnoses / Procedures Referred By Contleyla t Referred To Contact Referral ID Status Reason Start Date Expiration Date Visits Re quested Visits Authorized [id number] 1 1 Encounter Details Date Type Department Care Team (Late st Contact Info) Description 08/19/2024 1:59 PM EDT - 08/20/2024 4:28 PM EDT Hospital Encounter [facility] [address] [place] [phone] Rob Wharton MD [address] [facility] [address] [place] [address] Blu Alvarado MD [address] [facility] [address] [place] [address] Dysphagia, unspecified type (Primary Dx) Discharge Disposition: Home or Self Care Social History Tobacco Use Types Packs/Day Years Used Date Smoking Tobacco: Never Smokeless Tobacco: Never Alcohol Use Standard Drinks/Week Comments Never 0 (1 standard drink = 0.6 oz pur e alcohol) [facility] Utilities Answer Date Recorded In the past 12 months has [employer], gas, oil, or water Content Syndicate: [employer] threatened to shut off services in your [...] heating? Not hard at all 05/28/2024 [facility] - Occupational Stress [...] GED or equivalent No 05/28/2024 Preferred Language Maldivian 05/28/2024 PHQ-2 Answer Date Recorded Patient Health [...] 1:23 PM EDT Polly Lacey RN * [place] Suicide Severity Rating Scale (Screener/Recent Self-Report) Question Answer Date of Assessment Author 6. Suicidal Behavior (Lifetime) No 1:23 PM EDT Polly Cabrera RN documented as of this encounter Discharge Instructions * Attachments The following attachments cannot be sent through Care Everywhere. * Second Trimester of (Maldivian) * Upper Endoscopy Adult Care After (Maldivian) documented in this encounter Medications at Time [...] 08/19/2024 RH Positive 08/19/2024 ABSCRN Negative 08/19/2024 [id number] non-reactive 04/12/2024 HEPCVIRUSABY negative 04/12/2024 URINECX Final [...] from the original note were not included. [facility] Obstetric History and Physical Referring [...] her third trimesters prior pregnancies(etiology unknown). 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 She states has never had a [...] IUPC: Resting Tone: Resting Tone by IUPC: Nunnelly Units: Laboratory Results: Lab Results (last 24 [...] AM EDTAssociated Order(s): IP CONSULT TO GASTROENTEROLOGY [facility] Consult Referring Provider: Dr. Fan/Dr. Wharton [...] expresses concern regarding recent CT scan at [facility] revealing a hiatal hernia. CT scan done prior to most recent due to ovarian cyst and incidentally revealed hiatal hernia. She reports chronic gastrointestinal symptoms. Review of medical record revealed prior GI referral due to blood per rectum. She reports colonoscopy in 2020 at outside facility that revealed diverticulosis and benign colon polyp. She is currently established with provider at [facility] for gastroenterology care she reports repeat [...] , await recommendations following EGD - consider TRUCK UNLOADER evaluation if no etiology for difficulty swallowing [...] identified. >> Await pathology. >> Continue PPI. Bul Alvarado MD Date: 08/20/2024 Time: 14:13 EDT documented in this encounter Miscellaneous Notes * BOOM Notes - Kt Fan DO - 08/19/2024 2:58 PM EDT Images from the original note were not included. [facility] Obstetric History and Physical Referring [...] her third trimesters prior pregnancies(etiology unknown). 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 She states has never had a [...] IUPC: Resting Tone: Resting Tone by IUPC: Nunnelly Units: Laboratory Results: Lab Results (last 24 [...] [facility] [address] [place] [address] Jacey Mathews, [employer]OR [employer] [address] [facility] [address] [place] [address] 09/09/2024 9:30 AM EDT Ancillary Procedure [facility] [address] [place] [address] documented as of this encounter Procedures Procedure Name Priority Date/Time Associated Diagnosis Comments TISSUE PATHOLOGY EXAM Routine 08/20/2024 1:55 PM EDT Dysphagia, unspecified type AL ESOPHAGOGASTRODUODENOSCOP Y TRANSORAL DIAGNOSTIC 08/20/2024 1:44 PM EDT Dysphagia, unspecified type UPPER GI ENDOSCOPY 08/20/2024 1:09 PM EDT BASIC METABOLIC PANEL STAT 08/20/2024 5:25 AM EDT POTASSIUM STAT 08/19/2024 8:53 PM EDT ABORH 2ND SPECIMEN VERIFICATION STAT 08/19/2024 4:34 PM EDT NONSTRESS TEST Routine 08/19/2024 4:17 PM EDT [facility] Routine 08/19/2024 3:25 PM [...] EDT) Case Report Surgical Pathology Report Case: [id number] Authorizing Provider: Blu Alvarado MD Collected: 08/20/2024 [...] Final Result [facility]
[address] [place] [address], * Upper GI Endoscopy (08/20/2024 1:09 PM EDT) us Blu Alvarado MD INTERFACE NEEDS Final Result * (ABNORMAL) Basic Metabolic Panel (08/20/2024 5:25 AM EDT) Glucose 84 65 - 99 mg/dL 08/20/2024 6:13 AM EDT [facility] BUN 2.3(L) 6.0 - 20.0 mg/dL 08/20/2024 6:13 AM T [facility] Creatinine 0.51(L) 0.57 - 1.00 mg/dL 08/20/2024 6:13 AM T [facility] Sodium 139 136 - 145 mmol/L 08/20/2024 6:13 AM EDT [facility] Potassium 3.5 3.5 - 5.2 mmol/L 08/20/2024 6:13 AM EDT [facility] Chloride 109(H) 98 - 107 mmol/L 08/20/2024 6:13 AM EDT [facility] CO2 23.5 22.0 - 29.0 mmol/L 08/20/2024 6:13 AM [facility] Calcium 7.8(L) 8.6 - 10.5 mg/dL 08/20/2024 6:13 AM [facility] BUN/Creatinine Ratio 4.5(L) 7.0 - 25.0 08/20/2024 6:13 AM T [facility] Anion Gap 6.5 5.0 - 15.0 mmol/L 08/20/2024 6:13 AM [facility] eGFR 126.6 >60.0 mL/min/1.7 3 08/20/2024 6:13 AM [facility] Blood Venipuncture / Unknown 08/20/2024 5:25 AM EDT 08/20/2024 5:46 AM EDT [facility] - 08/20/2024 6:13 AM EDT GFR [...] MD LAB BLOOD ORDERABLES Final Resu lt [facility]
[address] [place] [address], * (ABNORMAL) Potassium (08/19/2024 8:53 PM EDT) Potassium 2.7(L) 3.5 - 5.2 mmol/L 08/19/2024 9:20 PM EDT [facility] Blood Venipuncture / Unknown 08/19/2024 8:53 PM EDT 08/19/2024 9:04 PM EDT Kt Fan DO LAB BLOOD ORDERABLES Final Result Performing Organization Address City/[facility]/ZIP Co de Phone Number [facility]
[address] [place] [address], * ABO RH Specimen Verification (08/19/2024 4:34 PM EDT) ABO Type O 08/19/2024 7:39 PM EDT [facility] RH type Positive 08/19/2024 7:39 PM EDT [facility] Blood Venipuncture / Unknown 08/19/2024 4:34 PM EDT 08/19/2024 4:53 PM EDT Rob Wharton MD BLOOD BANK TEST ORDER FRANCO Final Result Performing Organization Address City/[facility]/ZIP Co de Phone Number [facility]
[address] [place] [address], * [facility] (08/19/2024 3:25 PM EDT) Anatomical Region Laterality Modality Ultrasound 08/19/2024 3:09 PM EDT Narrative 08/19/2024 4:54 PM EDT PAT NAME: CAROLE GIRARD MED REC#: [id number] DA: 1990 PAT GEND: F PAT TYPE: E EXAM TRAVIS: [id number] REF PHYS ROB WHARTON Comparison Studies The [...] EFW (oz) 9 oz EFW by: Hadlock (CPD-NO-RN-FL) Extended Cav. septi pel. tr 4.7 mm Grain Elevator Motor Starter 3.8 mm CM 7.5 mm 84% Nicolaides [...] Heart / Thorax 3-vessel view: Appears normal 1-mefykm-lnqsgdi view: Appears normal Stomach: Appears normal Kidneys: [...] in 4wks for growth. Coding ======= Description: 36475-64 Follow Up Label Machine Operator: Alison Verduzco RT R , RDMS Physician: Jo Chappell MD Electronically signed by: Jo Chappell MD at: 16:54 Procedure Note Jo Chappell MD - 08/19/2024 PAT NAME: CAROLE GIRARD MED REC#: [id number] DA: [id number] PAT GEND: F PAT TYPE: E EXAM TRAVIS: [id number] REF PHYS ROB WHARTON Comparison Studies The findings of this study are compared to the prior ultrasound studydated 07/22/24 Patient Status Inpatient Indication ======== History of c/s x1. History of . Vaginal bleeding. Maternal Assessment Sbqiwy860 cm Height (ft)5 ft Height (in)4 in Acpmzh46 kg Weight (lb)158 lb BMI27.31 kg/m Method ======= Transabdominal ultrasound examination. View: Limited by patient bodyhabitus ========= Love . Number of fetuses: 1 Dating ====== Method of dating:based on stated DUSTY GA by prior [id number] w + 1 d DUSTY by prior assessment:12/01/2024 Ultrasound examination on:08/19/2024 GA by U/S based upon:AC, BPD, Femur, HC GA by U/S24 w + 2 d DUSTY by U/S:12/07/2024 Previous dating:based on stated DUSTY, selected on 07/22/2024 Agreed DUSTY of previous datin12/01/2024 Assigned:based on stated DUSTY, selected on 08/19/2024 Assigned GA25 w + 1 d Assigned DUSTY:12/01/2024 [id number] d Biometry Standard BPD57.6 mm 23w 4d 5% Hadlock OFD81.6 mm 26w 4d 88% Jamal HC225.7 mm 24w 4d 13% Hadlock Cerebellum tr28.9 mm 25w 2d 62% Hill AC194.9 mm 24w 1d 15% Hadlock Femur44.9 mm 24w 6d 27% Hadlock Tjkyedh30.3 mm 25w 3d 50% Jamal HC / AC1.16 WLL217 g 24w 2d 16% Hadlock EFW (lb)1 lb EFW (oz)9 oz EFW by:Hadlock (OMH-TD-BD-FL) Extended Cav. septi pel. tr4.7 mm Vp3.8 mm CM7.5 mm 84% Nicolaides Head / Face / Neck Cephalic index0.71 <1% Nicolaides Extremities / Bony Struc FL / BPD0.78 FL / HC0.20 FL / AC0.23 Other Structures ERL073 bpm General Evaluation Cardiac activity present. FHR [...] normal Heart / Thorax 3-vessel view:Appears normal 1-ijoflx-gzwpwdh view:Appears normal Stomach:Appears normal Kidneys:Appears normal Bladder:Appears normal Gender:female Wants to know gender:yes Maternal Structures Uterus / Cervix Cervix:Visualized Approach:Transabdominal Cervical .9 mm Doppler Arterial Umbilical A PI1.01 32% [...] office in 4wks for growth. Coding ======= Description:63389-44 Follow Up Label Machine Operator: RT Annetta Hartmann , [facility] Physician: Jo Chappell MD Electronically signed by: Jo Chappell MD at: 16:54 us Kt Fan DO [facility] US ORDERABLES Final Res ult * Protein / Creatinine Ratio, Urine - Urine, Clean Catch (08/19/2024 3:02 PM EDT) Protein/Creati nine Ratio, Urine 126.1 0.0 - 200.0 mg/G Crea 08/20/2024 12:47 AM EDT [facility] Creatinine, Urine 148.3 mg/dL 08/20/2024 12:47 AM EDT [facility] Total Protein, Urine 18.7 mg/dL 08/20/2024 12:47 AM EDT [facility] Urine Urine specimen obtained by clean catch procedure / Unknown Collection / Unknown 08/19/2024 3:02 PM EDT 08/19/2024 4:26 PM EDT Kt Fan DO URINE ORDERABLES Final Resu lt [facility]
[address] [place] [address], * (ABNORMAL) Magnesium (08/19/2024 3:02 PM EDT) Magnesium 1.5(L) 1.6 - 2.6 mg/dL 08/19/2024 5:12 PM EDT [facility] Blood Line / Unknown 08/19/2024 3: 02 PM EDT 08/19/2024 3:10 PM EDT Kt Fan DO LAB BLOOD ORDERABLES Final Result [facility]
[address] [place] [address], [place] [phone] * Urinalysis, Microscopic Only - Urine, Clean [...] Final Resu lt [facility]
[address] [place] [address], * (ABNORMAL) CBC Auto Differential (08/19/2024 3:02 [...] 140 - 450 10*3/mm3 08/19/2024 3:23 PM [facility] Neutrophil % 66.8 42.7 - 76.0 % 08/19/2024 3:23 PM [facility] Lymphocyte % 24.4 19.6 - 45.3 % 08/19/2024 3:23 PM EDT [facility] Monocyte % 7.6 5.0 - 12.0 % 08/19/2024 3:23 PM [facility] Eosinophil % 0.7 0.3 - 6.2 % 08/19/2024 3:23 PM [facility] Basophil % 0.2 0.0 - 1.5 % 08/19/2024 3:23 PM [facility] Immature Grans % 0.3 0.0 - 0.5 % 08/19/2024 3:23 PM [facility] Neutrophils, Absolute 6.14 1.70 - 7.00 10*3/mm3 08/19/2024 3:23 PM [facility] Lymphocytes, Absolute 2.24 0.70 - 3.10 10*3/mm3 08/19/2024 3:23 PM [facility] Monocytes, Absolute 0.70 0.10 - 0.90 10*3/mm3 08/19/2024 3:23 PM [facility] Eosinophils, Absolute 0.06 0.00 - 0.40 10*3/mm3 08/19/2024 3:23 PM [facility] Basophils, Absolute 0.02 0.00 - 0.20 10*3/mm3 08/19/2024 3:23 PM [facility] Immature Grans, Absolute 0.03 0.00 - 0.05 10*3/mm3 08/19/2024 3:23 PM [facility] nRBC 0.0 0.0 - 0.2 /100 WBC 08/19/2024 3:23 PM [facility] Blood Line / Unknown 08/19/2024 3: 02 PM EDT 08/19/2024 3:10 PM EDT Kt Fan DO LAB BLOOD ORDERABLES Final Result [facility]
[address] [place] [address], * (ABNORMAL) Urinalysis With Microscopic If Indicated (No Culture) - Urine, Clean Catch (08/19/2024 3:02 PM EDT) Color, UA Yellow Yellow, Straw 08/19/2024 3:33 PM EDT [facility] Appearance, UA Clear Clear 08/19/2024 3:33 PM EDT [facility] pH, UA >=9.0(H) 5.0 - 8.0 08/19/2024 3:33 PM EDT [facility] Specific [place], UA 1.018 1.005 - 1.030 08/19/2024 3:33 [...] ORDERABLES Final Resu lt Performing Organization Address City/[facility]/ZIP Co de Phone Number [facility]
[address] [place] [address], [place] [phone] * Amylase (08/19/2024 3:02 PM EDT) Amylase 73 28 - 100 U/L 08/19/2024 3:36 PM EDT [facility] Blood Line / Unknown 08/19/2024 3: 02 PM EDT 08/19/2024 3:10 PM EDT us Kt Fan DO LAB BLOOD ORDERABLES Final Result Performing Organization Address [facility] Co de Phone Number [facility]
[address] [place] [address], [place] [phone] * Lipase (08/19/2024 3:02 PM EDT) Lipase 13 13 - 60 U/L 08/19/2024 3:36 PM EDT [facility] Blood Line / Unknown 08/19/2024 3: 02 PM EDT 08/19/2024 3:10 PM EDT us Kt Fan DO LAB BLOOD ORDERABLES Final Result Performing Organization Address [facility]/ZIP Co de Phone Number [facility]
[address] [place] [address], [place] [phone] * (ABNORMAL) Comprehensive Metabolic Panel (08/19/2024 3:02 [...] - 5.2 mmol/L 08/19/2024 3:38 PM T [facility] Comment:Specimen hemolyzed. Result may be falsely elevated. Chloride 99 98 - 107 mmol/L 08/19/2024 3:38 PM T [facility] CO2 24.2 22.0 - 29.0 mmol/L 08/19/2024 3:38 PM EDT [facility] Calcium 8.8 8.6 - 10.5 mg/dL 08/19/2024 3:38 PM EDT [facility] Total Protein 6.6 6.0 - 8.5 g/dL 08/19/2024 3:38 PM EDT [facility] Albumin 3.4(L) 3.5 - 5.2 g/dL 08/19/2024 3:38 PM T [facility] ALT (SGPT) 10 1 - 33 U/L 08/19/2024 3:38 PM EDT [facility] AST (SGOT) 22 1 - 32 U/L 08/19/2024 3:38 PM EDT [facility] Alkaline Phosphatase 64 39 - 117 U/L 08/19/2024 3:38 PM T [facility] Total Bilirubin 0.5 0.0 - 1.2 mg/dL 08/19/2024 3:38 PM T [facility] Globulin 3.2 gm/dL 08/19/2024 3:38 PM T [facility] Comment:Calculated Result A/G [...] 02 PM EDT 08/19/2024 3:10 PM EDT [facility] - 08/19/2024 3:38 PM EDT GFR [...] Final Result [facility]
[address] [place] [address], * Type & Screen (08/19/2024 3:02 PM [...] BANK TEST ORDERABLES Edited Result - Final [facility]
[address] [place] [address], documented in this encounter Visit Diagnoses Diagnosis [...] BPA Driven Protocol Open Order & Select [facility] Electrolyte Replacement Protocol Algorithm to View Details [...] documented as of this encounter Care Teams Distribution Warehouse Manager Relationship Specialty Start Date End Date Norma Friedman APRN [address] [place] G3 RAFAELA APPIAH [id number] PCP - General Family Medicine 05/14/24 documented as of this encounter
--- OUTSIDE RECORDS SUMMARY | 2024-08-20 13:33 | XMS_ITS | Encounter Summary ---
[facility] Address [address] [place] [address] Care Team Providers Care Hand Etcher Helper Name Role Phone Norma Friedman APRN Primary Care Provider + [phone] Reason for Visit * Reason Comments Vaginal Bleeding * Auth/Cert (Routine) Specialty Diagnoses / Procedures Referred By Tarik t Referred To Contact Referral ID Status Reason Start Date Expiration Date Visits Re quested Visits Authorized [id number] 1 1 Encounter Details Date Type Department Care Team (Late st Contact Info) Description 08/20/2024 1:33 PM EDT - 08/20/2024 2:05 PM EDT Surgery [facility] ENDO SUITES [address] [place] [address] Blu Alvarado MD [address] [facility] [address] [place] [address] ESOPHAGOGASTRODUODENOSCOPY [03957 (CPT )] Social History Tobacco Use Types Packs/Day Years Used Date Smoking Tobacco: Never Smokeless Tobacco: Never Alcohol Use Standard Drinks/Week Comments Never 0 (1 standard drink = 0.6 oz pur e alcohol) [facility] Utilities Answer Date Recorded In the past [...] and heating? Not hard at all 05/28/2024 [facility] - Occupational Stress Questionnaire Answer Date Recorded [...] 1:23 PM EDT Polly Lacey RN * [place] Suicide Severity Rating Scale (Screener/Recent Self-Report) Question Answer Date of Assessment Author 6. Suicidal Behavior (Lifetime) No 1:23 PM EDT Polly Cabrera RN documented as of this encounter Discharge Instructions * Attachments The following attachments cannot be sent through Care Everywhere. * Second Trimester of (Namibian) * Upper Endoscopy Adult Care After (Namibian) documented in this encounter Medications at Time [...] 08/19/2024 RH Positive 08/19/2024 ABSCRN Negative 08/19/2024 [id number] non-reactive 04/12/2024 HEPCVIRUSABY negative 04/12/2024 URINECX Final [...] IUPC: Resting Tone: Resting Tone by IUPC: Finley Units: Cervix: Exam by: Method: sterile vaginal [...] from the original note were not included. [facility] Obstetric History and Physical Referring [...] her third trimesters prior pregnancies(etiology unknown). 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 She states has never had a [...] IUPC: Resting Tone: Resting Tone by IUPC: Finley Units: Laboratory Results: Lab Results (last 24 [...] AM EDTAssociated Order(s): IP CONSULT TO GASTROENTEROLOGY [facility] Gastroenterology Consult Referring Provider: Dr. Fan/Dr. Wharton PCP: Fryman, Eugonda, CASSANDRA ARCHITECT Reason for Consultation: IUP 25 weeks gestation, [...] expresses concern regarding recent CT scan at [facility] revealing a hiatal hernia. CT scan done prior to most recent due to ovarian cyst and incidentally revealed hiatal hernia. She reports chronic gastrointestinal symptoms. Review of medical record revealed prior GI referral due to blood per rectum. She reports colonoscopy in 2020 at outside facility that revealed diverticulosis and benign colon polyp. She is currently established with provider at [facility] for gastroenterology care she reports repeat [...] , await recommendations following EGD - consider HIGH REACH OPERATOR evaluation if no etiology for difficulty swallowing [...] Miscellaneous Notes * BOOM Notes - Kt Fan, - 08/19/2024 2:58 PM EDT Images from the original note were not included. [facility] Obstetric History and Physical Referring [...] her third trimesters prior pregnancies(etiology unknown). 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 She states has never had a [...] IUPC: Resting Tone: Resting Tone by IUPC: Finley Units: Laboratory Results: Lab Results (last 24 [...] Info) Description 09/09/2024 9:30 AM EDT Routine [facility] [place] [address] Jacey Mathews, CASSANDRA ARCHITECT [address] [facility] [address] [place] [address] 09/09/2024 9:30 AM EDT Ancillary Procedure [facility] [place] [address] documented as of this encounter Procedures Procedure [...] NONSTRESS TEST Routine 08/19/2024 4:17 PM EDT [facility] Routine 08/19/2024 3:25 PM [...] EDT) Case Report Surgical Pathology Report Case: [id number] Authorizing Provider: Blu Alvarado MD Collected: 08/20/2024 01:55 PM Ordering Location: [facility] Received: 08/20/2024 02:14 PM ENDO SUITES Pathologist: Khalida Rhoades DO Specimen: Gastric, Antrum, antrum bx for path 08/22/2024 9:18 AM EDT [facility] Clinical Information Dysphagia, unspecified type 08/22/2024 9:18 AM EDT [facility] Final Diagnosis Stomach, antrum, biopsy: 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 pylori is negative (no organisms are identified) Negative for intestinal metaplasia, dysplasia, or malignancy 08/22/2024 9:18 AM EDT [facility] at 0918 EDT Gross Description 1. Gastric, Antrum. Received in formalin labeled antrum biopsy is a 0.4 x 0.2 x 0.2 cm pink-see soft tissue fragment submitted entirely in a single cassette. HDM 08/22/2024 9:18 AM EDT [facility] Microscopic Description The slides are reviewed and demonstrate histopathologic features supporting the above rendered diagnosis. 08/22/2024 9:18 AM EDT [facility] Tissue Pyloric antrum structure / Unknown 08/20/2024 1:55 PM EDT 08/20/2024 2:14 PM EDT us Blu Alvarado MD PATHOLOGY/CYTOLOGY ORDERABLES Final Result [facility]
[address] [place] [address], * Upper GI Endoscopy (08/20/2024 1:09 PM EDT) us Blu Alvarado MD INTERFACE NEEDS Final Result * (ABNORMAL) Basic Metabolic Panel (08/20/2024 5:25 AM EDT) Glucose 84 65 - 99 mg/dL 08/20/2024 6:13 AM EDT [facility] BUN 2.3(L) 6.0 - 20.0 mg/dL 08/20/2024 6:13 AM EDT [facility] Creatinine 0.51(L) 0.57 - 1.00 mg/dL 08/20/2024 6:13 AM EDT [facility] Sodium 139 136 - 145 mmol/L 08/20/2024 6:13 AM EDT [facility] Potassium 3.5 3.5 - 5.2 mmol/L 08/20/2024 6:13 AM EDT [facility] Chloride 109(H) 98 - 107 mmol/L 08/20/2024 6:13 AM EDT [facility] CO2 23.5 22.0 - 29.0 mmol/L 08/20/2024 6:13 AM EDT [facility] Calcium 7.8(L) 8.6 - 10.5 mg/dL 08/20/2024 6:13 AM EDT [facility] BUN/Creatinine Ratio 4.5(L) 7.0 - 25.0 08/20/2024 6:13 AM EDT [facility] Anion Gap 6.5 5.0 - 15.0 mmol/L 08/20/2024 6:13 AM EDT [facility] eGFR 126.6 >60.0 mL/min/1.7 3 08/20/2024 6:13 AM T [facility] Blood Venipuncture / Unknown 08/20/2024 5:25 AM EDT 08/20/2024 5:46 AM EDT [facility] - 08/20/2024 6:13 AM [...] MD LAB BLOOD ORDERABLES Final Resu lt [facility]
[address] [place] [address], * (ABNORMAL) Potassium (08/19/2024 8:53 PM EDT) Potassium 2.7(L) 3.5 - 5.2 mmol/L 08/19/2024 9:20 PM EDT [facility] Blood Venipuncture / Unknown 08/19/2024 8:53 PM EDT 08/19/2024 9:04 PM EDT Kt Fan DO LAB BLOOD ORDERABLES Final Result Performing Organization Address City/[facility]/ZIP Co de Phone Number [facility]
[address] [place] [address], * ABO RH Specimen Verification (08/19/2024 4:34 PM EDT) ABO Type O 08/19/2024 7:39 PM EDT [facility] RH type Positive 08/19/2024 7:39 PM EDT [facility] Blood Venipuncture / Unknown 08/19/2024 4:34 PM EDT 08/19/2024 4:53 PM EDT Rob Wharton MD BLOOD BANK TEST ORDER FRANCO Final Result Performing Organization Address City/[facility]/ZIP Co de Phone Number [facility]ORATORY
[address] [place] [address], * [facility] (08/19/2024 3:25 PM EDT) Anatomical Region Laterality Modality Ultrasound 08/19/2024 3:09 PM EDT Narrative 08/19/2024 4:54 PM EDT PAT NAME: ERA CAROLE MED REC#: [id number] DA: 1990 PAT GEND: F PAT TYPE: E EXAM TRAVIS: [id number] REF PHYS ROB WHARTON Comparison Studies The [...] EFW (oz) 9 oz EFW by: Hadlock (WJC-MG-[place]-FL) Extended Cav. septi pel. tr 4.7 mm Coremaking Machine Operator 3.8 mm CM 7.5 mm 84% [...] Heart / Thorax 3-vessel view: Appears normal 3-jasbyl-xhopqkr view: Appears normal Stomach: Appears normal Kidneys: [...] in 4wks for growth. Coding ======= Description: 28940-37 Follow Up Wig Maker: RT Mary Kate R , [facility] Physician: Jo Chappell MD Electronically signed by: Jo Chappell MD at: 16:54 Procedure Note Jo Chappell MD - 08/19/2024 PAT NAME: CAROLE GIRARD MED REC#: [id number] DA: 1990 PAT GEND: F PAT TYPE: E EXAM TRAVIS: [id number] REF PHYS ROB WHARTON Comparison Studies The findings of this study are compared to the prior ultrasound studydated 07/22/24 Patient Status Inpatient Indication ======== History of c/s x1. History of . Vaginal bleeding. Maternal Assessment Lhpumy525 cm Height (ft)5 ft Height (in)4 in Gbwypw04 kg Weight (lb)158 lb BMI27.31 kg/m Method ======= Transabdominal ultrasound examination. View: Limited by patient bodyhabitus ========= Love . Number of fetuses: 1 Dating ====== Method of dating:based on stated DUSTY GA by prior [id number] w + 1 d DUSTY by prior assessment:12/01/2024 Ultrasound examination on:08/19/2024 GA by U/S based upon:AC, BPD, Femur, HC GA by U/S24 w + 2 d DUSTY by U/S:12/07/2024 Previous dating:based on stated DUSTY, selected on 07/22/2024 Agreed DUSTY of previous datin12/01/2024 Assigned:based on stated DUSTY, selected on 08/19/2024 Assigned GA25 w + 1 d Assigned DUSTY:12/01/2024 [id number] d Biometry Standard BPD57.6 mm 23w 4d 5% Hadlock OFD81.6 mm 26w 4d 88% Jamal HC225.7 mm 24w 4d 13% Hadlock Cerebellum tr28.9 mm 25w 2d 62% Hill AC194.9 mm 24w 1d 15% Hadlock Femur44.9 mm 24w 6d 27% Hadlock Sredtlc92.3 mm 25w 3d 50% Jamal HC / AC1.16 UEK919 g 24w 2d 16% Hadlock EFW (lb)1 lb EFW (oz)9 oz EFW by:Hadlock (LZI-WM-HV-FL) Extended Cav. septi pel. tr4.7 mm Vp3.8 mm CM7.5 mm 84% Nicolaides Head / Face / Neck Cephalic index0.71 <1% Nicolaides Extremities / Bony Struc FL / BPD0.78 FL / HC0.20 FL / AC0.23 Other Structures VUM659 bpm General Evaluation Cardiac activity present. FHR [...] normal Heart / Thorax 3-vessel view:Appears normal 5-gnoxhu-vbqpsyn view:Appears normal Stomach:Appears normal Kidneys:Appears normal Bladder:Appears normal Gender:female Wants to know gender:yes Maternal Structures Uterus / Cervix Cervix:Visualized Approach:Transabdominal Cervical bkxsaf55.9 mm Doppler Arterial Umbilical A PI1.01 32% [...] office in 4wks for growth. Coding ======= Description:[id number] Follow Up Wig Maker: RT Annetta Hartmann , [facility] Physician: Jo Chappell MD Electronically signed by: Jo Chappell MD at: 16:54 us Kt Fan DO [facility] US ORDERABLES Final Res ult * Protein / Creatinine Ratio, Urine - Urine, Clean Catch (08/19/2024 3:02 PM EDT) Protein/Creati nine Ratio, Urine 126.1 0.0 - 200.0 mg/G Crea 08/20/2024 12:47 AM EDT [facility] Creatinine, Urine 148.3 mg/dL 08/20/2024 12:47 AM EDT [facility] Total Protein, Urine 18.7 mg/dL 08/20/2024 12:47 AM EDT [facility] Urine Urine specimen obtained by clean catch procedure / Unknown Collection / Unknown 08/19/2024 3:02 PM EDT 08/19/2024 4:26 PM EDT Kt Fan DO URINE ORDERABLES Final Resu lt [facility]
[address] [place] [address], [place] [phone] * (ABNORMAL) Magnesium (08/19/2024 3:02 PM EDT) Magnesium 1.5(L) 1.6 - 2.6 mg/dL 08/19/2024 5:12 PM EDT [facility] Blood Line / Unknown 08/19/2024 3: 02 PM EDT 08/19/2024 3:10 PM EDT Kt Fan DO LAB BLOOD ORDERABLES Final Result Performing Organization Address City/[facility]/ZIP Co de Phone Number [facility]
[address] [place] [address], [place] [phone] * Urinalysis, Microscopic Only - Urine, Clean Catch (08/19/2024 3:02 PM EDT) RBC, UA 0-2 None Seen, 0-2 /HPF 08/19/2024 3:33 PM EDT [facility] WBC, UA 0-2 None Seen, 0-2 /HPF 08/19/2024 3:33 PM EDT [facility] Bacteria, UA None Seen None Seen /HPF 08/19/2024 3:33 PM EDT [facility] Squamous Epithelial Cells, UA 0-2 None Seen, 0-2 /HPF 08/19/2024 3:33 PM EDT [facility] Hyaline Casts, UA None Seen None Seen /LPF 08/19/2024 3:33 PM EDT [facility] Methodology Automated Microscopy 08/19/2024 3:33 PM EDT [facility] Urine Urine specimen obtained by clean catch procedure / Unknown Collection / Unknown 08/19/2024 3:02 PM EDT 08/19/2024 3:13 PM EDT us Kt Fan DO URINE ORDERABLES Final Resu lt [facility]
[address] [place] [address], [place] [phone] * (ABNORMAL) CBC Auto Differential (08/19/2024 3:02 PM EDT) WBC 9.19 3.40 - 10.80 10*3/mm3 08/19/2024 3:23 PM EDT [facility] RBC 3.58(L) 3.77 - 5.28 10*6/mm3 08/19/2024 3:23 PM EDT [facility] Hemoglobin 10.5(L) 12.0 - 15.9 g/dL 08/19/2024 3:23 PM EDT [facility] Hematocrit 31.4(L) 34.0 - 46.6 % 08/19/2024 3:23 PM EDT [facility] MCV 87.7 79.0 - 97.0 fL 08/19/2024 3:23 PM EDT [facility] MCH 29.3 26.6 - 33.0 pg 08/19/2024 3:23 PM EDT [facility] MCHC 33.4 31.5 - 35.7 g/dL 08/19/2024 3:23 PM EDT [facility] RDW 13.4 12.3 - 15.4 % 08/19/2024 3:23 PM EDT [facility] RDW-SD 42.4 37.0 - 54.0 fl 08/19/2024 3:23 PM EDT [facility] MPV 12.0 6.0 - 12.0 fL 08/19/2024 3:23 PM EDT [facility] Platelets 241 140 - 450 10*3/mm3 08/19/2024 3:23 PM EDT [facility] Neutrophil % 66.8 42.7 - 76.0 % 08/19/2024 3:23 PM EDT [facility] Lymphocyte % 24.4 19.6 - 45.3 % 08/19/2024 3:23 PM EDT [facility] Monocyte % 7.6 5.0 - 12.0 % 08/19/2024 3:23 PM EDT [facility] Eosinophil % 0.7 0.3 - 6.2 % 08/19/2024 3:23 PM EDT [facility] Basophil % 0.2 0.0 - 1.5 % 08/19/2024 3:23 PM EDT [facility] Immature Grans % 0.3 0.0 - 0.5 % 08/19/2024 3:23 PM EDT [facility] Neutrophils, Absolute 6.14 1.70 - 7.00 10*3/mm3 08/19/2024 3:23 PM EDT [facility] Lymphocytes, Absolute 2.24 0.70 - 3.10 10*3/mm3 08/19/2024 3:23 PM EDT [facility] Monocytes, Absolute 0.70 0.10 - 0.90 10*3/mm3 08/19/2024 3:23 PM EDT [facility] Eosinophils, Absolute 0.06 0.00 - 0.40 10*3/mm3 08/19/2024 3:23 PM EDT [facility] Basophils, Absolute 0.02 0.00 - 0.20 10*3/mm3 08/19/2024 3:23 PM EDT [facility] Immature Grans, Absolute 0.03 0.00 - 0.05 10*3/mm3 08/19/2024 3:23 PM EDT [facility] nRBC 0.0 0.0 - 0.2 /100 WBC 08/19/2024 3:23 PM EDT [facility] Blood Line / Unknown 08/19/2024 3: 02 PM EDT 08/19/2024 3:10 PM EDT Kt Fan DO LAB BLOOD ORDERABLES Final Result [facility]
[address] [place] [address], * (ABNORMAL) Urinalysis With Microscopic If Indicated (No Culture) - Urine, Clean Catch (08/19/2024 3:02 PM EDT) Color, UA Yellow Yellow, Straw 08/19/2024 3:33 PM EDT [facility] Appearance, UA Clear Clear 08/19/2024 3:33 PM EDT [facility] pH, UA >=9.0(H) 5.0 - 8.0 08/19/2024 3:33 PM EDT [facility] Specific [place], UA 1.018 1.005 - 1.030 08/19/2024 3:33 PM EDT [facility] Glucose, UA Negative Negative 08/19/2024 3:33 PM EDT [facility] Ketones, UA 15 mg/dL (1+)(A) Negative 08/19/2024 3:33 PM EDT [facility] Bilirubin, UA Negative Negative 08/19/2024 3:33 PM EDT [facility] Blood, UA Negative Negative 08/19/2024 3:33 PM EDT [facility] Protein, UA 30 mg/dL (1+)(A) Negative 08/19/2024 3:33 PM EDT [facility] Leuk Esterase, UA Negative Negative 08/19/2024 3:33 PM EDT [facility] Nitrite, UA Negative Negative 08/19/2024 3:33 PM EDT [facility] Urobilinogen, UA 1.0 E.U./dL 0.2 - 1.0 E.U./dL 08/19/2024 3:33 PM EDT [facility] Urine Urine specimen obtained by clean catch procedure / Unknown Collection / Unknown 08/19/2024 3:02 PM EDT 08/19/2024 3:13 PM EDT us Kt Fan DO URINE ORDERABLES Final Resu lt Performing Organization Address City/[facility]/ZIP Co de Phone Number [facility]
[address] [place] [address], [place] [phone] * Amylase (08/19/2024 3:02 PM EDT) Amylase 73 28 - 100 U/L 08/19/2024 3:36 PM EDT [facility] Blood Line / Unknown 08/19/2024 3: 02 PM EDT 08/19/2024 3:10 PM EDT us Kt Fan DO LAB BLOOD ORDERABLES Final Result Performing Organization Address [facility] Co de Phone Number [facility]
[address] [place] [address], [place] [phone] * Lipase (08/19/2024 3:02 PM EDT) Lipase 13 13 - 60 U/L 08/19/2024 3:36 PM EDT [facility] Blood Line / Unknown 08/19/2024 3: 02 PM EDT 08/19/2024 3:10 PM EDT us Kt Fan DO LAB BLOOD ORDERABLES Final Result Performing Organization Address City/[facility]/ZIP Co de Phone Number [facility]
[address] [place] [address], [place] [phone] * (ABNORMAL) Comprehensive Metabolic Panel (08/19/2024 3:02 PM EDT) Glucose 75 65 - 99 mg/dL 08/19/2024 3:38 PM EDT [facility] BUN 3.6(L) 6.0 - 20.0 mg/dL 08/19/2024 3:38 PM EDT [facility] Creatinine 0.51(L) 0.57 - 1.00 mg/dL 08/19/2024 3:38 PM EDT [facility] Sodium 137 136 - 145 mmol/L 08/19/2024 3:38 PM EDT [facility] Potassium 2.6(LL) 3.5 - 5.2 mmol/L 08/19/2024 3:38 PM T [facility] Comment:Specimen hemolyzed. Result may be falsely elevated. Chloride 99 98 - 107 mmol/L 08/19/2024 3:38 PM EDT [facility] CO2 24.2 22.0 - 29.0 mmol/L 08/19/2024 3:38 PM EDT [facility] Calcium 8.8 8.6 - 10.5 mg/dL 08/19/2024 3:38 PM EDT [facility] Total Protein 6.6 6.0 - 8.5 g/dL 08/19/2024 3:38 PM EDT [facility] Albumin 3.4(L) 3.5 - 5.2 g/dL 08/19/2024 3:38 PM EDT [facility] ALT (SGPT) 10 1 - 33 U/L 08/19/2024 3:38 PM T [facility] AST (SGOT) 22 1 - 32 U/L 08/19/2024 3:38 PM EDT [facility] Alkaline Phosphatase 64 39 - 117 U/L 08/19/2024 3:38 PM EDT [facility] Total Bilirubin 0.5 0.0 - 1.2 mg/dL 08/19/2024 3:38 PM EDT [facility] Globulin 3.2 gm/dL 08/19/2024 3:38 PM T [facility] Comment:Calculated Result A/G Ratio 1.1 g/dL 08/19/2024 3:38 PM T [facility] BUN/Creatinine Ratio 7.1 7.0 - 25.0 08/19/2024 3:38 PM EDT [facility] Anion Gap 13.8 5.0 - 15.0 mmol/L 08/19/2024 3:38 PM EDT [facility] eGFR 126.6 >60.0 mL/min/1.7 3 08/19/2024 3:38 PM EDT [facility] Blood Line / Unknown 08/19/2024 3: 02 PM EDT 08/19/2024 3:10 PM EDT Narrative [facility] - 08/19/2024 3:38 PM [...] Fan DO LAB BLOOD ORDERABLES Final Result [facility]
[address] [place] [address], * Type & Screen (08/19/2024 3:02 PM EDT) ABO Type O 08/19/2024 3:51 PM EDT [facility] RH type Positive 08/19/2024 3:51 PM EDT [facility] Antibody Screen Negative 08/19/2024 3:51 PM EDT [facility] T&S Expiration Date 08/22/2024 11:59:59 PM 08/19/2024 3:51 PM EDT [facility] Blood Line / Unknown 08/19/2024 3: 02 PM EDT 08/19/2024 3:15 PM EDT us Kt Fan DO BLOOD BANK TEST ORDERABLES Edited Result - Final [facility]
[address] [id number], documented in this encounter Visit Diagnoses Diagnosis [...] BPA Driven Protocol Open Order & Select [facility] Electrolyte Replacement Protocol Algorithm to View [...] BPA Driven Protocol Open Order & Select [facility] Electrolyte Replacement Protocol Algorithm to View [...] as of this encounter Care Teams Hand Etcher Helper Relationship Specialty Start Date End Date Norma Friedman APRN [address] [place] G3 RAFAELA APPIAH [id number] PCP - General Family Medicine 05/14/24 documented as of this encounter
--- OUTSIDE RECORDS SUMMARY | 2024-08-20 13:44 | XMS_ITS | Encounter Summary ---
[facility] Address [address] [place] [phone] Care Team Providers Care Vocational Rehabilitation Consultant Name Role Phone IvyKade goldbergdev FERNÁNDEZ Primary Care Provider + [phone] Reason for Visit * Auth/Cert (Routine) Specialty Diagnoses / Procedures Referred By Contac t Referred To Contact Referral ID Status Reason Start Date Expiration Date Visits Re quested Visits Authorized 1 1 Encounter Details Date Type Department Care Team (Late st Contact Info) Description 08/20/2024 1:44 PM EDT Anesthesia Event [facility] ENDO SU[facility] [address] [place] [address] Akash Anguiano MD [address] [place] [address] Liborio Peralta CRNA [address] [place] [address] Anesthesia Record Procedure Summary Procedure Name Responsible [...] heating? Not hard at all 05/28/2024 [facility] [place] of Occupat ional Health - Occupational Stress [...] GED or equivalent No 05/28/2024 Preferred Language Peruvian 05/28/2024 PHQ-2 Answer Date Recorded Patient Health [...] 1:23 PM EDT Polly Lacey RN * [place] Suicide Severity Rating Scale (Screener/Recent Self-Report) Question Answer Date of Assessment Author 6. Suicidal Behavior (Lifetime) No 1:23 PM EDT Polly Cabrera RN documented as of this encounter OR Notes * Anesthesia Postprocedure Evaluation - Liborio Peralta CRNA - 08/20/2024 2:18 PM EDT Patient: Whitney Presley Procedure Summary Date: 08/20/24 Room / Location: [facility] END[facility]COPY 3 [facility] Anesthesia [...] sounds: normal. 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 Plan discussed with COTTON DISPATCHER. CODE STATUS: documented in this encounter Plan of Treatment Upcoming Encounters Date Type Department Care Team (Late st Contact Info) Description 09/09/2024 9:30 AM EDT Routine [facility] OBGYN [address] [place] [address] Jacey Mathews, PROCESS IMPROVEMENT MANAGER [address] [facility] [place] [address] [place] [address] 09/09/2024 9:30 AM EDT Ancillary Procedure [facility] OBGYN [address] [place] [address] documented as of this encounter [...] documented as of this encounter Care Teams Vocational Rehabilitation Consultant Relationship Specialty Start Date End Date Norma Friedman APRN [address] [place] [address] [place] [address] PCP - General Family Medicine 05/14/24 documented as of this encounter
--- OUTSIDE RECORDS SUMMARY | 2024-08-29 10:00 | XMS_ITS | Encounter Summary ---
[facility] Organization [facility] Address [address] [place] [address] Care Team Providers Care Radio Repair Teacher Name Role Phone IvyKade goldbergjoseseven JOLENE Primary Care Provider + [phone] Reason for Visit * Reason Comments Problem Encounter Details Date Type Department Care Team (Late st Contact Info) Description 08/29/2024 10:00 AM EDT Routine [facility] OBGYN [address] [place] [address] Staci Jain MD [address] [place] [address] GA: 26w4d Social History Tobacco Use Types Packs/Day Years Used Date Smoking Tobacco: Never Smokeless Tobacco: Never Alcohol Use Standard Drinks/Week Comments Never 0 (1 standard drink = 0.6 oz pur e alcohol) [facility] Utilities Answer Date Recorded In the past 12 months has [employer], gas, oil, or water [employer] threatened to shut off services in your [...] hard at all 05/28/2024 [facility] [place] [facility] - Occupational [...] AM EDT Routine [facility] [place] [address] Jacey Mathews, CLOTHING DESIGNER 1700 [facility] [address] [place] [address] 09/09/2024 9:30 AM EDT Ancillary Procedure [facility] [place] [address] Scheduled Orders Name Type Priority Associated Diagnoses [...] - 08/30/2024 6:09 AM EDT Performed at: [address] [place], [place] [address]aut[address] [place], [place] [id number] [employer] Social Studies Teacher: Kevin Harman MD, Phone: [phone] Patient Fasting: N Staci Jain MD LAB BLOOD ORDERABLES Final Result [facility] (AMBULATORY) [address] [place] [address], [facility] [address] [place] [address], * (ABNORMAL) Comprehensive Metabolic Panel (08/29/2024 11:05 AM EDT) [facility] Glucose 72 65 - 99 mg/dL [facility] [...] 5 AM EDT 08/29/2024 Narrative [facility] ([facility]ORY) - 08/30/2024 6:09 AM EDT Performed at: [address] [id number] [employer] Social Studies Teacher: Kevin Harman MD, Phone: [phone] Patient Fasting: N us Staci Jain MD LAB BLOOD ORDERABLES Final Result Performing Organization Address City/[facility]/ZIP Co de Phone Number [facility] (AMBULATORY) [address] [place] [address], [place] [phone] [facility] [address] [place] [address], [place] [phone] * (ABNORMAL) POC Urinalysis Dipstick (08/29/2024 10:13 AM EDT) Glucose, UA Negative Negative mg/dL [facility] Protein, POC Trace(A) Negative mg/dL [facility] Urine 08/29/2024 10:1 3 AM EDT us Staci Jain MD POINT OF CARE TEST OR DERABLES Final Result [facility]
[address] [place] [address], [place] [phone] documented in this encounter Visit Diagnoses Diagnosis [...] documented as of this encounter Care Teams Radio Repair Teacher Relationship Specialty Start Date End Date Norma Friedman APRN [address] [place] G3 RAFAELA APPIAH [address] PCP - General Family Medicine 05/14/24 documented as of this encounter
[2024-09-05] VITALS (12 sets, daily range): BP systolic 97–117; BP diastolic 52–74; PULSE 72–82; RESP 12–16; TEMP 36.7; O2SAT 99–100
--- OUTSIDE RECORDS SUMMARY | 2024-09-05 08:43 | XMS_ITS | Clinical Summary ---
Author Organization [facility] [place] [address] Phone Care Team Providers Care Final Tester Name Role Phone Unavailable Primary Care [...] migh t be different from the original. [facility] - Edwardo Ojeda MD Interventional Pain Protocol: NS Appt 03/29/22 Letter Sent Maxime report completed (EVERY 3 MONTHS) ( 03/23/22) Pharmacy: [facility] [address] [place] [id number] [phone] [facility] south - [phone] No known active problems Social History Tobacco [...] patient's age to complete this topic Insurance [employer] [facility] [place] [address] [place] [id number] [facility] [employer] [facility] [place]
--- OUTSIDE RECORDS SUMMARY | 2024-09-05 08:43 | XMS_ITS | Clinical Summary ---
Author Organization Healthcare Address [address] [place] [address] Care Team Providers Care Registered Sales Assistant Name Role Phone Unavailable Primary Care Provider Unavailabl e Encounters Date Type Department Care Team Description 07/22/2024 [facility] [address] [place] [address] Staci Jain MD History of proteinuria syndrome (Primary Dx); care, subsequent , second trimester 07/22/2024 [facility] [address] [place] [address] Sandy Cardenas MD from Last 3 Months [...] 2012 [facility]-Cervical Cancer Screening 2021 [facility]-HPV/Cotest 2021 [id number] Vaccine (2 season) 2023 05/04/2022 [facility]-Influenza Vaccine [...] ORDERABLES Fin al Result Performing Organization Address City/[facility] de Phone Number SUNQUEST * Hepatitis C Antibody (01/22/2019 9:57 AM EST) Hepatitis C Antibody NEGATIVE Reference Range: Negative SUNQUEST 01/22/2019 9:57 AM EST 01/22/2019 12:12 PM EST Pradip Damico APRN, CNM LAB BLOOD ORDERABLES Fin al Result Performing Organization Address City/[facility] de Phone Number SUNQUEST from Last 3 Months or Most Recently Relevant to Health Maintenance Insurance [employer] [facility] MEDICAID
--- OUTSIDE RECORDS SUMMARY | 2024-09-05 08:43 | XMS_ITS | Encounter Summary ---
Author Organization Healthcare Address [address] [place] [id number] Care Team Providers Care Digital Content Specialist Name Role Phone Unavailable Primary Care Provider Unavailabl e Reason for Referral * Consultation (Routine) - Authorized Specialty Diagnoses / Procedures Referred By Contac t Referred To Contact Nephrology Diagnoses History of proteinuria syndrome care, subsequent , second trimester Staci Jain MD [address] [address] Phone: tel: fax: [facility]ph[facility], Bone [facility] Mineral Metabolism [address] [facility], [address] [place] [address] Phone: tel: fax: Referral ID Status Reason Start Date Expiration Date Visits Requested Visits Authorized [id number] Authorized Specialty Services Required 07/22/2024 01/21/2026 1 1 Encounter Details Date Type Department Care Team (Late st Contact Info) Description 07/22/2024 [facility] [address] [place] [address] Staci Jain MD [address] [place] [address] History of proteinuria syndrome (Primary Dx); care, [...]
--- OUTSIDE RECORDS SUMMARY | 2024-09-05 08:44 | XMS_ITS | Clinical Summary ---
Author Organization [facility] Address [address] [place] [address] Care Team Providers Care Certified Medical Asst Name Role Phone Norma Friedman APRN Primary Care Provider + [phone] Allergies Active Allergy Reactions Criticality Noted Date [...] Active Problems Problem Noted Date Diagnosed Date Hypokalemia due to excessive gastrointestinal loss of potassium 09/02/2024 Encounter for sterilization 09/01/2024 Overview (09/01/2024): Needs [...] Encounters Date Type Department Care Team Description 5 Results Follow-Up [facility] OBGYN [address] [place] [address] Rob Wharton MD 5 Telephone [facility] [address] [facility] [address] [place] [address] Rob Wharton MD 5 10:00 AM EDT Routine [facility] OBGYN [address] [place] [address] Rob Wharton MD GA: 26w4d 5 Travel 5 Telephone [facility] [address] [facility] [address] [place] [address] Rob Wharton MD 5 Telephone [facility] [address] [place] [address] Rob Wharton MD 5 1:44 PM EDT Anesthesia Event [facility] ENDO SUITES [address] [place] [address] Akash Anguiano MD Lanham, John, CRNA 5 1:33 PM EDT - 5 2:05 PM EDT Surgery [facility] END[facility] SUITES [address] [place] [address] Blu Alvarado MD ESOPHAGOGASTRODUODENOSCOPY [02040 (CPT )] 5 1:59 PM EDT - 5 4:28 PM EDT Hospital Encounter [facility] ANTEPARTUM [address] [place] [address] Rob Wharton MD Brunner, Mark I, MD Dysphagia, unspecified type (Primary Dx) Discharge Disposition: Home or Self Care 5 10:15 AM EDT Routine [facility] OBGYN [address] [place] [address] Jacey Mathews, GASATERIA ATTENDANT GA: 25w1d 5 Telephone [facility] OBGYN [address] [place] [address] Jacey Mathews, GASATERIA ATTENDANT 5 Travel 5 Patient Outreach [facility] LABOR DELIVERY [address] [place] [address] Christy Zabala RN 5 9:10 AM EDT Routine [facility] OBGYN [address] [facility] [address] [place] [address] Rob Wharton MD GA: 21w1d 5 8:00 AM EDT Office Visit [facility] MATERNAL MEDICINE [address] [facility] [address] [place] [address] Sebastian Larsen MD History of prior with small for gestational age (Primary Dx) 5 7:44 AM EDT - 5 11:59 PM EDT Hospital Encounter [facility] US PER DIAG CTR [address] [place] [address] Kelly Delgado, GASATERIA ATTENDANT care, antepartum, unspecified ; High risk due to history of labor, antepartum; History of prior with small for gestational age Discharge Disposition: Home or Self Care 5 Travel 5 Results Follow-Up [facility] [address] [facility] [address] [place] [address] Kelly Delgado, JOLENE 5 10:10 AM EDT Routine [facility] [address] [facility] [address] [place] [address] Kelly Delgado, GASATERIA ATTENDANT GA: 18w5d 5 9:30 AM EDT Ancillary Procedure [facility] [address] [facility] [address] [place] [id number] care in second trimester, unspecified 5 Travel 5 Telephone [facility] [address] [facility] [address] [place] [address] Uriel Russ MD TRANSFER OF CARE REQ 5 10:15 PM EDT - 5 11:59 PM EDT Hospital Encounter [facility] LABOR DELIVERY [address] [place] [address] Rob Wharton MD Mirsky, Elizabeth, MD Discharge Disposition: Home or Self Care 5 Travel 5 Telephone [facility] [address] [facility] [address] [place] [address] Uriel Russ MD [facility], OB 5 Telephone [facility] OBGYN [address] [place] [address] Uriel Russ MD [facility] 5 E[facility] [address] [place] [address] E-VisitToni MD 5 Results Follow-Up [facility] OBGYN [address] [place] [address] Uriel Russ MD 5 3:20 PM EDT Routine [facility] OBGYN [address] [place] [address] Uriel Russ MD GA: 17w2d 5 3:00 PM EDT Ancillary Procedure [facility] [address] [place] [address] Bleeding in early (Primary Dx) 5 Travel 5 Telephone [facility] OBGYN [address] [place] [address] Uriel Russ MD 5 9:40 AM EDT Routine [facility] OBGYN [address] [place] [address] Uriel Russ MD GA: 15w2d 5 Travel [...] drink = 0.6 oz pur e alcohol) [facility] Utilities Answer Date Recorded In the past 12 months has [employer], gas, oil, or water [employer] threatened to shut off services in your [...] Not hard at all 05/28/2024 [facility] Occupat ional Health - Occupational Stress [...] GED or equivalent No 05/28/2024 Preferred Language Ugandan 05/28/2024 PHQ-2 Answer Date Recorded Patient Health [...] EDT Routine [facility] [place] [address] Jacey Mathews, GASATERIA ATTENDANT [address] [facility] [address] [place] [address] 09/09/2024 9:30 AM EDT Ancillary Procedure [facility] [place] [address] Health Maintenance Due Date Last Done Comments Annual Gynecologic Pelvic and Breast Exam 1990 PAP SMEAR 2012 COVID-19 Vaccine ( season) 2023 05/04/2022 ANNUAL PHYSICAL 05/21/2024 RSV Vaccine - Adults (1 - Risk 1-dose series) 10/07/2024 INFLUENZA VACCINE 11/06/2024 03/30/2016, 03/28/2012 TDAP/TD VACCINES (7 - Td or Tdap) 06/01/2032 06/01/2022, 10/03/2020, 01/15/2018, Additional history exists HEPATITIS C SCREENING Completed 04/12/2024, 019 Pneumococcal Vaccine 0-49 Aged Out No [...] 08/20/2024 1:55 PM EDT Dysphagia, unspecified type SC ESOPHAGOGASTRODUODENOSCOP Y TRANSORAL DIAGNOSTIC 08/20/2024 1:44 PM EDT Dysphagia, unspecified type UPPER GI ENDOSCOPY 08/20/2024 1:09 PM EDT BASIC METABOLIC PANEL STAT 08/20/2024 5:25 AM EDT POTASSIUM STAT 08/19/2024 8:53 PM EDT ABORH 2ND SPECIMEN VERIFICATION STAT 08/19/2024 4:34 PM EDT NONSTRESS TEST Routine 08/19/2024 4:[address] [facility] Routine 08/19/2024 3:25 [...] 10:02 AM EDT Multigravida in second trimester [facility] Routine 07/22/2024 9:10 [...] - 08/30/2024 6:09 AM EDT Performed at: [address] [place] [address] [id number] Seed Pelleter: Kevin Harman MD, Phone: [phone] Patient Fasting: N Rob Wharton MD LAB BLOOD ORDERABLES Final Result [facility] (AMBULATORY) [address] [id number], [facility] [address] [place] [address], * (ABNORMAL) Comprehensive Metabolic Panel (08/29/2024 11:05 AM EDT) Only the most recent of4 resultswithin the time period is included. [facility] Glucose 72 65 - 99 [...] - 08/30/2024 6:09 AM EDT Performed at: [address] [place] [id number] Seed Pelleter: Kevin Harman MD, Phone: [phone] Patient Fasting: N Rob Wharton MD LAB BLOOD ORDERABLES Final Result [facility] (AMBULATORY) [address] [place] [address], [place] [phone] [facility] [address] [place] [address], [place] [phone] * (ABNORMAL) POC Urinalysis Dipstick (08/29/2024 10:13 AM EDT) Only the most recent of5 resultswithin the time period is included. Glucose, UA Negative Negative mg/dL [facility] Protein, POC Trace(A) Negative mg/dL [facility] Urine 08/29/2024 10:1 3 AM EDT Rob Wharton MD POINT OF CARE TEST OR DERABLES Final Result [facility]
[address] [place] [address], * BH AN ETT AIRWAY (08/20/2024 2:02 [...] bilaterally with symmetric chest rise and fall us Liborio Peralta CRNA ANESTHESIA ORDERABLES Final Res ult * Tissue Pathology Exam (08/20/2024 1:55 PM EDT) Case Report Surgical Pathology Report Case: [id number] Authorizing Provider: Blu Alvarado MD Collected: 08/20/2024 01:55 PM Ordering Location: [facility] Received: 08/20/2024 02:14 PM ENDO SUITES Pathologist: Khalida Rhoades DO Specimen: Gastric, Antrum, antrum bx for path 08/22/2024 9:18 AM EDT [facility] Clinical Information Dysphagia, unspecified type 08/22/2024 9:18 AM EDT [facility] Final Diagnosis Stomach, antrum, biopsy: 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 pylori is negative (no organisms are identified) Negative for intestinal metaplasia, dysplasia, or malignancy 08/22/2024 9:18 AM EDT [facility]OR[facility] at 0918 EDT Gross Description 1. Gastric, Antrum. Received in formalin labeled antrum biopsy is a 0.4 x 0.2 x 0.2 cm pink-see soft tissue fragment submitted entirely in a single cassette. HDM 08/22/2024 9:18 AM EDT [facility] Microscopic Description The slides are reviewed and demonstrate histopathologic features supporting the above rendered diagnosis. 08/22/2024 9:18 AM EDT [facility] Tissue Pyloric antrum structure / Unknown 08/20/2024 1:55 PM EDT 08/20/2024 2:14 PM EDT us Blu Alvarado MD PATHOLOGY/CYTOLOGY ORDERABLES Final Result [facility]
[address] [place] [address], * Upper GI Endoscopy (08/20/2024 1:09 PM EDT) us Blu Alvarado MD INTERFACE NEEDS Final Result * (ABNORMAL) Basic Metabolic Panel (08/20/2024 5:25 AM EDT) Glucose 84 65 - 99 mg/dL 08/20/2024 6:13 AM EDT [facility] BUN 2.3(L) 6.0 - 20.0 mg/dL 08/20/2024 6:13 AM T [facility] Creatinine 0.51(L) 0.57 - 1.00 mg/dL 08/20/2024 6:13 AM EDT [facility] Sodium 139 136 - 145 mmol/L 08/20/2024 6:13 AM T [facility] Potassium 3.5 3.5 - 5.2 mmol/L 08/20/2024 6:13 AM EDT [facility] Chloride 109(H) 98 - 107 mmol/L 08/20/2024 6:13 AM EDT [facility] CO2 23.5 22.0 - 29.0 mmol/L 08/20/2024 6:13 AM T [facility] Calcium 7.8(L) 8.6 - 10.5 mg/dL 08/20/2024 6:13 AM [facility] BUN/Creatinine Ratio 4.5(L) 7.0 - 25.0 08/20/2024 6:13 AM [facility] Anion Gap 6.5 5.0 - 15.0 mmol/L 08/20/2024 6:13 AM [facility] eGFR 126.6 >60.0 mL/min/1.7 3 08/20/2024 6:13 AM [facility] Blood Venipuncture / Unknown 08/20/2024 5:25 AM EDT 08/20/2024 5:46 AM EDT [facility] LABORATORY - 08/20/2024 6:13 AM [...] ORDERABLES Final Resu lt Performing Organization Address [facility]/ZIP Co de Phone Number [facility]
[address] [place] [address], * (ABNORMAL) Potassium (08/19/2024 8:53 PM EDT) Potassium 2.7(L) 3.5 - 5.2 mmol/L 08/19/2024 9:20 PM EDT [facility] Blood Venipuncture / Unknown 08/19/2024 8:53 PM EDT 08/19/2024 9:04 PM EDT Kt Fan DO LAB BLOOD ORDERABLES Final Result Performing Organization Address [facility] Co de Phone Number [facility]
[address] [place] [address], * ABO RH Specimen Verification (08/19/2024 4:34 PM EDT) ABO Type O 08/19/2024 7:39 PM EDT [facility] LABORATORY RH type Positive 08/19/2024 7:39 PM EDT [facility] Blood Venipuncture / Unknown 08/19/2024 4:34 PM EDT 08/19/2024 4:53 PM EDT Rob Wharton MD BLOOD BANK TEST ORDER FRANCO Final Result Performing Organization Address [facility] Co de Phone Number [facility] LABORATORY
[address] [place] [address], * [facility] (08/19/2024 3:25 PM EDT) Only the most recent of2 resultswithin the time period is included. Anatomical Region Laterality Modality Ultrasound 08/19/2024 3:09 PM EDT Narrative 08/19/2024 4:54 PM EDT PAT NAME: CAROLE GIRARD MED REC#: [id number] DA: 1990 PAT GEND: F PAT TYPE: E EXAM TRAVIS: [id number] REF PHYS ROB WHARTON Comparison Studies The [...] EFW (oz) 9 oz EFW by: Hadlock ([id number]) Extended Cav. septi pel. tr 4.7 mm Emergency Medicine Medical Director 3.8 mm CM 7.5 mm 84% Nicolaides [...] Heart / Thorax 3-vessel view: Appears normal 9-wcpngi-zamvwgr view: Appears normal Stomach: Appears normal Kidneys: [...] in 4wks for growth. Coding ======= Description: 97291-57 Follow Up Welder Railcar Mechanic: Alison Verduzco RT R , RDMS Physician: Jo Chappell MD Electronically signed by: Jo Chappell MD at: 16:54 Procedure Note Jo Chappell MD - 08/19/2024 PAT NAME: CAROLE GIRARD MED REC#: [id number] DA: [id number] PAT GEND: F PAT TYPE: E EXAM TRAVIS: [id number] REF PHYS ROB WHARTON Comparison Studies The findings of this study are compared to the prior ultrasound studydated 07/22/24 Patient Status Inpatient Indication ======== History of c/s x1. History of . Vaginal bleeding. Maternal Assessment Hzhqpf991 cm Height (ft)5 ft Height (in)4 in Lopiup17 kg Weight (lb)158 lb BMI27.31 kg/m Method [...] GA25 w + 1 d Assigned DUSTY:12/01/2024 [id number] d Biometry Standard BPD57.6 mm 23w 4d 5% Hadlock OFD81.6 mm 26w 4d 88% Jamal HC225.7 mm 24w 4d 13% Hadlock Cerebellum tr28.9 mm 25w 2d 62% Hill AC194.9 mm 24w 1d 15% Hadlock Femur44.9 mm 24w 6d 27% Hadlock Ijzpxop03.3 mm 25w 3d 50% Jamal HC / AC1.16 JAA723 g 24w 2d 16% Hadlock EFW (lb)1 lb EFW (oz)9 oz EFW by:Hadlock ([id number]) Extended Cav. septi pel. tr4.7 mm Vp3.8 mm CM7.5 mm 84% Nicolaides Head / Face / Neck Cephalic index0.71 <1% Nicolaides Extremities / Bony Struc FL / BPD0.78 FL / HC0.20 FL / AC0.23 Other Structures ONI321 bpm General Evaluation Cardiac activity present. FHR [...] normal Heart / Thorax 3-vessel view:Appears normal 9-vihmrd-aiwuazr view:Appears normal Stomach:Appears normal Kidneys:Appears normal Bladder:Appears normal Gender:female Wants to know gender:yes Maternal Structures Uterus / Cervix Cervix:Visualized Approach:Transabdominal Cervical whoono76.9 mm Doppler Arterial Umbilical A PI1.01 32% [...] office in 4wks for growth. Coding ======= Description:89745-40 Follow Up Welder Railcar Mechanic: RT Annetta Hartmann , [facility] Physician: Jo Chappell MD Electronically signed by: Jo Chappell MD at: 16:54 Kt Fan DO [facility] US ORDERABLES Final Res ult * Urinalysis, Microscopic Only - Urine, Clean Catch (08/19/2024 3:02 PM EDT) Only the most recent of2 resultswithin the time period is included. RBC, UA 0-2 None Seen, 0-2 /HPF 08/19/2024 3:33 PM EDT [facility] WBC, UA 0-2 None Seen, 0-2 /HPF 08/19/2024 3:33 PM EDT [facility] Bacteria, UA None Seen None Seen /HPF 08/19/2024 3:33 PM EDT [facility] Squamous Epithelial Cells, UA 0-2 None Seen, 0-2 /HPF 08/19/2024 3:33 PM EDT [facility] Hyaline Casts, UA None Seen None Seen /LPF 08/19/2024 3:33 PM EDT [facility] Methodology Automated Microscopy 08/19/2024 3:33 PM EDT [facility] Urine Urine specimen obtained by clean catch procedure / Unknown Collection / Unknown 08/19/2024 3:02 PM EDT 08/19/2024 3:13 PM EDT Kt Fan DO URINE ORDERABLES Final Resu lt [facility]
[address] [place] [address], * (ABNORMAL) Urinalysis With Microscopic If Indicated (No Culture) - Urine, Clean Catch (08/19/2024 3:02 PM EDT) Only the most recent of2 resultswithin the time period is included. Color, UA Yellow Yellow, Straw 08/19/2024 3:33 PM EDT [facility] Appearance, UA Clear Clear 08/19/2024 3:33 PM EDT [facility] pH, UA >=9.0(H) 5.0 - 8.0 08/19/2024 3:33 PM EDT [facility] Specific [place], UA 1.018 1.005 - 1.030 08/19/2024 3:33 PM EDT [facility] Glucose, UA Negative Negative 08/19/2024 3:33 PM EDT [facility] Ketones, UA 15 mg/dL (1+)(A) Negative 08/19/2024 3:33 PM EDT [facility] Bilirubin, UA Negative Negative 08/19/2024 3:33 PM EDT [facility] Blood, UA Negative Negative 08/19/2024 3:33 PM EDT [facility] Protein, UA 30 mg/dL (1+)(A) Negative 08/19/2024 3:33 PM EDT [facility] Leuk Esterase, UA Negative Negative 08/19/2024 3:33 PM EDT [facility] Nitrite, UA Negative Negative 08/19/2024 3:33 PM EDT [facility] Urobilinogen, UA 1.0 E.U./dL 0.2 - 1.0 E.U./dL 08/19/2024 3:33 PM EDT [facility] Urine Urine specimen obtained by clean catch procedure / Unknown Collection / Unknown 08/19/2024 3:02 PM EDT 08/19/2024 3:13 PM EDT us Kt Fan DO URINE ORDERABLES Final Resu lt [facility]
[address] [place] [address], * (ABNORMAL) CBC Auto Differential (08/19/2024 3:02 PM EDT) WBC 9.19 3.40 - 10.80 10*3/mm3 08/19/2024 3:23 PM EDT [facility] RBC 3.58(L) 3.77 - 5.28 10*6/mm3 08/19/2024 3:23 PM EDT [facility] Hemoglobin 10.5(L) 12.0 - 15.9 g/dL 08/19/2024 3:23 PM EDT [facility] Hematocrit 31.4(L) 34.0 - 46.6 % 08/19/2024 3:23 PM EDT [facility] MCV 87.7 79.0 - 97.0 fL 08/19/2024 3:23 PM EDT [facility] MCH 29.3 26.6 - 33.0 pg 08/19/2024 3:23 PM EDT [facility] MCHC 33.4 31.5 - 35.7 g/dL 08/19/2024 3:23 PM EDT [facility] RDW 13.4 12.3 - 15.4 % 08/19/2024 3:23 PM EDT [facility] RDW-SD 42.4 37.0 - 54.0 fl 08/19/2024 3:23 PM EDT [facility] MPV 12.0 6.0 - 12.0 fL 08/19/2024 3:23 PM EDT [facility] Platelets 241 140 - 450 10*3/mm3 08/19/2024 3:23 PM EDT [facility] Neutrophil % 66.8 42.7 - 76.0 % 08/19/2024 3:23 PM EDT [facility] Lymphocyte % 24.4 19.6 - 45.3 % 08/19/2024 3:23 PM EDT [facility] Monocyte % 7.6 5.0 - 12.0 % 08/19/2024 3:23 PM EDT [facility] Eosinophil % 0.7 0.3 - 6.2 % 08/19/2024 3:23 PM EDT [facility] Basophil % 0.2 0.0 - 1.5 % 08/19/2024 3:23 PM EDT [facility] Immature Grans % 0.3 0.0 - 0.5 % 08/19/2024 3:23 PM EDT [facility] Neutrophils, Absolute 6.14 1.70 - 7.00 10*3/mm3 08/19/2024 3:23 PM EDT [facility] Lymphocytes, Absolute 2.24 0.70 - 3.10 10*3/mm3 08/19/2024 3:23 PM EDT [facility] Monocytes, Absolute 0.70 0.10 - 0.90 10*3/mm3 08/19/2024 3:23 PM EDT [facility] Eosinophils, Absolute 0.06 0.00 - 0.40 10*3/mm3 08/19/2024 3:23 PM EDT [facility] Basophils, Absolute 0.02 0.00 - 0.20 10*3/mm3 08/19/2024 3:23 PM EDT [facility] Immature Grans, Absolute 0.03 0.00 - 0.05 10*3/mm3 08/19/2024 3:23 PM EDT [facility] nRBC 0.0 0.0 - 0.2 /100 WBC 08/19/2024 3:23 PM EDT [facility] Blood Line / Unknown 08/19/2024 3: 02 PM EDT 08/19/2024 3:10 PM EDT Kt Fan DO LAB BLOOD ORDERABLES Final Result [facility]
[address] [place] [address], [place] [phone] * Protein / Creatinine Ratio, Urine - [...] [facility]
[address] [place] [address], [place] [phone] * Type & Screen (08/19/2024 3:02 PM EDT) ABO Type O 08/19/2024 3:51 PM EDT [facility] RH type Positive 08/19/2024 3:51 PM EDT [facility] Antibody Screen Negative 08/19/2024 3:51 PM EDT [facility] T&S Expiration Date 08/22/2024 11:59:59 PM 08/19/2024 3:51 PM EDT [facility] Blood Line / Unknown 08/19/2024 3: 02 PM EDT 08/19/2024 3:15 PM EDT us Kt Fan DO BLOOD BANK TEST ORDERABLES Edited Result - Final Performing Organization Address [facility] Co de Phone Number [facility]
[address] [place] [address], [place] [phone] * (ABNORMAL) Magnesium (08/19/2024 3:02 PM EDT) Pathologist [facility] Magnesium 1.5(L) 1.6 - 2.6 mg/dL 08/19/2024 5:12 PM EDT [facility] Blood Line / Unknown 08/19/2024 3: 02 PM EDT 08/19/2024 3:10 PM EDT us Kt Fan DO LAB BLOOD ORDERABLES Final Result [facility]
[address] [place] [address], [place] [phone] * Lipase (08/19/2024 3:02 PM EDT) Lipase 13 13 - 60 U/L 08/19/2024 3:36 PM EDT [facility] Blood Line / Unknown 08/19/2024 3: 02 PM EDT 08/19/2024 3:10 PM EDT us Kt Fan DO LAB BLOOD ORDERABLES Final Result Performing Organization Address City/[facility]/ZIP Co de Phone Number [facility]
[address] [place] [address], * Amylase (08/19/2024 3:02 PM EDT) Amylase 73 28 - 100 U/L 08/19/2024 3:36 PM EDT [facility] Blood Line / Unknown 08/19/2024 3: 02 PM EDT 08/19/2024 3:10 PM EDT us Kt Fan DO LAB BLOOD ORDERABLES Final Result Performing Organization Address [facility] Co de Phone Number [facility]
[address] [place] [address], * US Ob 14 + Weeks Single or First Gestation (07/05/2024 10:17 AM EDT) Anatomical Region Laterality Modality Body Ultrasound 07/05/2024 10:2 8 AM EDT Narrative 07/09/2024 7:02 PM EDT PAT NAME: CAROLE GIRARD MED REC#: [id number] DA: 1990 PAT GEND: F PAT TYPE: O EXAM TRAVIS: [id number] REF PHYS JEBURIEL Drop Board Man Comments Still need heart views and PCI [...] EFW (oz) 9 oz EFW by: Hadlock ([id number]) Extended Emergency Medicine Medical Director 6.4 mm CM 3.3 mm 11% Nicolaides [...] Heart / Thorax 3-vessel view: not visualized 8-[id number]-[id number] view: not visualized Diaphragm: Appears normal Diaphragm: [...] subsequent visit to complete the anatomic screening. Drop Board Man: Soo Harding RDMS Physician: Uriel Russ II, MD, FACOG Electronically signed by: Uriel Russ II, MD, FACOG at: 19:02 Procedure Note Uriel Russ MD - 07/09/2024 PAT NAME: CAROLE GIRARD MED REC#: [id number] DA: 1990 PAT GEND: F PAT TYPE: O EXAM TRAVIS: [id number] REF PHYS URIEL RUSS Drop Board Man Comments Still need heart views and PCI N/L, Kidneys, Legs suboptimal Indication ======== anatomy survey Comparison Studies There are no relevant prior studies to which this study is beingcompared Method ======= [place]on E6, Transabdominal ultrasound examination. View: Suboptimal view:limited by early gestational age ========= Love . Number of fetuses: 1 Dating ====== Method of dating:based on stated DUSTY GA by prior [id number] w + 5 d DUSTY by prior assessment:12/01/2024 Ultrasound examination on:07/05/2024 GA by U/S based upon:AC, BPD, Femur, HC GA by U/S18 w + 3 d DUSTY by U/S:12/03/2024 Previous dating:based on stated DUSTY, selected on 06/25/2024 Agreed DUSTY of previous datin12/01/2024 Assigned:based on stated DUSTY, selected on 07/05/2024 Assigned [id number] w + 5 d Assigned DUSTY:12/01/2024 [id number] d General Evaluation Cardiac activity present. FHR [...] 67% Hadlock HC / AC1.13 20% Hadlock [id number] g 18w 6d 56% Hadlock EFW (lb)0 lb EFW (oz)9 oz EFW by:Hadlock ([id number]) Extended Vp6.4 mm CM3.3 mm 11% Nicolaides Extremities / Bony Struc FL / BPD0.80 >99% Hadlock FL / HC0.20 98% Hadlock FL / AC0.23 89% Hadlock Other Structures [id number] bpm Anatomy Cranium:Appears normal Lateral ventricles:Appears normal Choroid plexus:Appears normal Midline falx:Appears normal Cavum septi pellucidi:Appears normal Cerebellum:Appears normal Cisterna magna:Appears normal Lips:suboptimal Profile:Appears normal Nose:suboptimal 4-chamber view:not visualized RVOT view:not visualized LVOT view:not visualized Heart / Thorax 3-vessel view:not visualized 1-ifkqsa-jmmwqno view:not visualized Diaphragm:Appears normal Diaphragm:Intact Cord insertion:Appears [...] Structures Uterus / Cervix Uterus:Visualized Cervix:Visualized Cervical vdqurs08.6 mm Ovaries / Tubes / Adnexa Rt [...] a subsequent visit tocomplete the anatomic screening. Drop Board Man: Soo Harding RDMS Physician: Uriel Russ II, MD, FACOG Electronically signed by: Uriel Russ II, MD, FACOG at: 0319:02 Uriel Russ MD [facility] ORDERABLES Final Result * Urine Culture - [...] Unknown 07/05/2024 07/05/2024 Comment:Urine Release to mayito esteves [facility] (AMBULATORY) - 07/07/2024 3:35 AM EDT Performed at: [facility] [address] [place] [address] [id number] Seed Pelleter: Mihcael Martinez PhD, Phone: [phone] Kelly Delgado APRN MICROBIOLOGY - GENERAL ORDER FRANCO Final Result Performing Organization Address [facility] Co de Phone Number [facility] (AMBULATORY) [address] [place] [address], [facility] [address] [place] [address], * Tryptase (06/25/2024 4:34 PM EDT) Pathologist [facility] Tryptase 6.1 2.2 - 13.2 ug/L [facility] Blood 06/25/2024 4:34 PM EDT 06/25/2024 [facility] (AMBULATORY) - 06/28/2024 9:10 AM EDT Performed at: [address] [place] [address] [id number] Seed Pelleter: Fang Yu MD, Phone: [phone] Uriel Russ MD LAB BLOOD ORDERABLES Final Resu lt [facility] (AMBULATORY) [address] [place] [address], [facility] [address] [place] [address], * Vitamin D,25-Hydroxy (06/25/2024 4:34 PM EDT) 25 Hydroxy, Vitamin D 33.7 30.0 - 100.0 ng/mL [facility] Comment: Vitamin D deficiency has been defined by the [place] of Medicine and an Endocrine Society practice guideline as a level of serum 25-OH vitamin D less than 20 ng/mL (1,2). The Endocrine Society went on to further define vitamin D insufficiency as a level between 21 and 29 ng/mL (2). 1. IOM ([place] of Medicine). 2010. Dietary reference intakes for calcium and D. [place]: The National Academies Press. 2. Halle MF, [place], Wade MITCHELL, et al. Evaluation, treatment, and prevention of vitamin D deficiency: an Endocrine Society clinical practice guideline. JCEM. 2010; 96(8):1911-30. Blood 06/25/2024 4:34 PM EDT 06/25/2024 Narrative [facility] (AMBULATORY) - 06/26/2024 7:37 AM EDT Performed at: [address] [place] [address] [id number] Seed Pelleter: Michael Martinez PhD, Phone: [phone] us Uriel Russ MD LAB BLOOD ORDERABLES Final Resu lt Performing Organization Address City/[facility]/ZIP Co de Phone Number [facility] (AMBULATORY) [address] [place] [address], [facility] [address] [place] [address], * TSH (06/25/2024 4:34 PM EDT) [facility] TSH 0.593 0.450 - 4.500 uIU/mL [facility] Blood 06/25/2024 4:34 PM EDT 06/25/2024 Narrative [facility] (AMBULATORY) - 06/26/2024 7:37 AM EDT Performed at: [address] [place] [address] [id number] Seed Pelleter: Michael Martinez PhD, Phone: [phone] us Uriel Russ MD LAB BLOOD ORDERABLES Final Resu lt Performing Organization Address City/[facility]/ZIP Co de Phone Number [facility] (AMBULATORY) [address] [place] [address], [facility] [address] [place] [address], * T4, Free (06/25/2024 4:34 PM EDT) Free T4 1.09 0.82 - 1.77 ng/dL [facility] Blood 06/25/2024 4:34 PM EDT 06/25/2024 Narrative [facility] (AMBULATORY) - 06/26/2024 7:37 AM EDT Performed at: - [address] [id number] Seed Pelleter: Michael Martinez PhD, Phone: [phone] Uriel Russ MD LAB BLOOD ORDERABLES Final Resu lt Performing Organization Address City/[facility] Co de Phone Number [facility] (AMBULATORY) [address] [place] [address], [facility] [address] [place] [address], * (ABNORMAL) Hemoglobin A1c (06/25/2024 4:34 PM EDT) [facility] Hemoglobin A1C 4.7(L) 4.8 - 5.6 % [facility] Comment: Prediabetes: 5.7 - 6.4 Diabetes: >6.4 Glycemic control for adults with diabetes: <7.0 Blood 06/25/2024 4:34 PM EDT 06/25/2024 Narrative [facility] (AMBULATORY) - 06/26/2024 4:35 AM EDT Performed at: [address] [id number] Seed Pelleter: Michael Martinez PhD, Phone: [phone] us Uriel Russ MD LAB BLOOD ORDERABLES Final Resu lt Performing Organization Address [facility] Co de Phone Number [facility] [place] (AMBULATORY) [address] [place] [address], [place] [phone] [facility] [address] [place] [address], * (ABNORMAL) Lipid Panel (06/25/2024 4:34 PM EDT) Total Cholesterol 203(H) 100 - 199 mg/dL [facility] Triglycerides 125 0 - 149 mg/dL [facility] HDL Cholesterol 52 >39 mg/dL [facility] VLDL Cholesterol Rom 22 5 - 40 mg/dL [facility] LDL Chol Calc ([facility]) 129(H) 0 - 99 mg/dL [facility] Blood 06/25/2024 4:34 PM EDT 06/25/2024 Narrative [facility] (AMBULATORY) - 06/26/2024 6:36 AM EDT Performed at: - [facility] [address] [place] [id number] Seed Pelleter: Michael Martinez PhD, Phone: [phone] us Uriel Russ MD LAB BLOOD ORDERABLES Final Resu lt [facility] (AMBULATORY) [address] [place] [address], [facility] [address] [place] [address], * US Ob Limited 1 + Fetuses (06/25/2024 3:10 PM EDT) Anatomical Region Laterality Modality Body Ultrasound 06/25/2024 3:54 PM EDT Narrative 06/26/2024 1:34 PM EDT PAT NAME: CAROLE GIRARD MED REC#: [id number] DA: 1990 PAT GEND: F PAT TYPE: O EXAM TRAVIS: [id number] REF PHYS URIEL RUSS Indication ======== Heart [...] clinically indicated for the condition being monitored. Drop Board Man: RT Annetta Bruno, [facility] Physician: Uriel Russ II, MD, FACOG Electronically signed by: Uriel Russ II, MD, FACOG at: 13:34 Procedure Note Uriel Russ MD - 06/26/2024 PAT NAME: CAROLE GIRARD MED REC#: [id number] DA: 1990 PAT GEND: F PAT TYPE: O EXAM TRAVIS: [id number] REF PHYS URIEL RUSS Indication ======== Heart Tones Comparison Studies The findings of this study are compared to the prior ultrasound studydated 05/27/2024 Method ======= Transabdominal ultrasound examination. View: Suboptimal view: limited byfetal position ========= Love . Number of fetuses: 1 Dating ====== Method of dating:based on stated DUSTY [place] by prior w + 2 d DUSTY by prior assessment:12/01/2024 Previous dating:based on stated DUSTY, selected on 05/27/2024 Agreed DUSTY of previous datin12/01/2024 Assigned:based on stated DUSTY, selected on 06/25/2024 Assigned GA17 w + 2 d Assigned DUSTY:12/01/2024 [id number] d General Evaluation Cardiac activity present. FHR 150 bpm. movements visualized. Presentation variable. Placenta Placental site: anterior. Amniotic fluid Amount of AF: normal. MVP 2.7 cm. Maternal Structures Uterus / Cervix Cervical .1 mm Impression heart tones 150. 17 weeks 2 days. EDC 12/01/2024. Single fetus.Cervical length 33 mm. Recommendation Follow-up scan as clinically indicated for the condition beingmonitored. Drop Board Man: RT Annetta Bruno, [facility] Physician: Uriel Russ II, MD, FACOG Electronically signed by: Uriel Russ II, MD, FACOG at: :34 Uriel Russ MD [facility] [place] ORDERABLES Final Result * Hepatitis C Antibody (04/12/2024) Hep C Virus Ab negative Blood Historical Provider LAB BLOOD ORDERABLES Lena l Result from Last 3 Months or Most Recently Relevant to Health Maintenance Insurance [employer] [facility] Care Teams Certified Medical Asst Relationship Specialty Start Date End Date Norma Friedman APRN [address] [place] [place] [address] PCP - General Family Medicine 05/14/24
--- OUTSIDE RECORDS SUMMARY | 2024-09-05 08:44 | XMS_ITS ---
Author Organization [facility] Address [address] [place] [address] Care Team Providers Care Hospital Nurse Liaison Name Role Phone Unavailable Primary Care Provider Unavailabl e Transplant Episode Kidney Potential Donor [facility] ([place], [place]) - [facility] Referred on 05/03/2022 Marked as Deferred on 05/04/2022 Reason: Other Kidney CoordinatorNadine Augustin R.N. Phone: N/A Fax: N/A Email: N/A Care Team Name Role Phone Fax Email Nadine Augustin R.N. Kidney Coordinator N/A N/A N/A Events Pre-Donation Referred: 05/03/2022
--- OUTSIDE RECORDS SUMMARY | 2024-09-05 08:44 | XMS_ITS | Encounter Summary ---
[facility] Address [address] [place] [address] Care Team Providers Care Poly Operator Name Role Phone Norma Friedman APRN Primary Care Provider + [phone] Encounter Details Date Type Department Care Team (Latest Contact Info) Description 08/29/2024 Travel Social History Tobacco Use Types Packs/Day Years Used Date Smoking Tobacco: Never Smokeless Tobacco: Never Alcohol Use Standard Drinks/Week Comments Never 0 (1 standard drink = 0.6 oz pur e alcohol) [facility] Utilities Answer Date Recorded In the past 12 months has [employer] electric, gas, oil, or water company threatened [...] Not hard at all 05/28/2024 [facility] [place] of Occupat ional Health - Occupational Stress [...] GED or equivalent No 05/28/2024 Preferred Language Australian 05/28/2024 PHQ-2 Answer Date Recorded Patient Health [...] Info) Description 09/09/2024 9:30 AM EDT Routine [facility] OBGYN [address] [place] [address] Jacey Mathews, COLOR COATER [address] [facility] [place] [address] [place] [address] 09/09/2024 9:30 AM EDT Ancillary Procedure [facility] [address] [place] [address] documented as of this encounter Visit Diagnoses Not on filedocumented in this encounter Additional Health Concerns Assessment Noted Time PHQ-2 Depression Total Score: 2 05/28/19 25 4:39 PM EDT documented as of this encounter Care Teams Poly Operator Relationship Specialty Start Date End Date Norma Friedman APRN [address] [place] [address] [place] [address] PCP - General Family Medicine 05/14/24 documented as of this encounter
--- OUTSIDE RECORDS SUMMARY | 2024-09-05 08:44 | XMS_ITS | Clinical Summary ---
Author Organization [facility] Address [address] [place] [address] Care Team Providers Care Log Rider Name Role Phone Unavailable Primary Care Provider Unavailabl e Source Comments [facility] is fully rolled out with thefollowing exceptions:General Clinical Research [facility] Social History Tobacco Use Types Packs/Day Years [...]
--- OUTSIDE RECORDS SUMMARY | 2024-09-05 08:44 | XMS_ITS | Referral Summary ---
Author Organization [employer] [place] Address [address] [place] [address] Care Team Providers Care Gravel Inspector Name Role Phone Unavailable Primary Care Provider [...]
--- OUTSIDE RECORDS SUMMARY | 2024-09-05 08:45 | XMS_ITS ---
Author Organization [facility] Address [address] [place] [address] Care Team Providers Care Truck Rental Service Attendant Name Role Phone Norma Friedman APRN Primary Care Provider Motherhood Connection Status:Engaged (Active) Start date:05/23/2024 Enrollment date:05/23/2024 Case Team Name Relationship Phone Bindu Castellon RN Nurse Navigator Christy Zabala RN(Responsible Staff) Nurse Navig ator Continued Care and Services Coordination
--- OUTSIDE RECORDS SUMMARY | 2024-09-05 08:45 | XMS_ITS | Encounter Summary ---
[facility] Address [address] [place] [id number] Care Team Providers Care Iv Rn Name Role Phone Elder Norma FERNÁNDEZ Primary Care Provider + [phone] Encounter Details Date Type Department Care Team (Late st Contact Info) Description 07/07/2024 Results Follow-Up [facility] OBGYN [address] [place] [address] [place] [id number] Kelly Delgado APRN [address] [facility] [address] [place] [address] Social History Tobacco Use Types Packs/Day Years Used Date Smoking Tobacco: Never Smokeless Tobacco: Never Alcohol Use Standard Drinks/Week Comments Never 0 (1 standard drink = 0.6 oz pur e alcohol) [facility] Utilities Answer Date Recorded In the past 12 months has [employer], gas, oil, or water [employer] threatened to shut off services in your [...] and heating? Not hard at all 05/28/2024 [facility] of Occupat ional Health - Occupational [...] Info) Description 09/09/2024 9:30 AM EDT Routine [facility] OBGYN [address] [place] [address] Jacey Mathews, RESIDENTIAL COLLECTIONS [address] [facility] [address] [place] [address] 09/09/2024 9:30 AM EDT Ancillary Procedure [facility] OBGYN [address] [place] [address] documented as of this encounter Visit Diagnoses Not on filedocumented in this encounter Additional Health Concerns Assessment Noted Time PHQ-2 Depression Total Score: 2 05/28/19 4:39 PM EDT documented as of this encounter Care Teams Iv Rn Relationship Specialty Start Date End Date Norma Friedman APRN [address] [place] [address] [place] [address] PCP - General Family Medicine 05/14/24 documented as of this encounter
--- OUTSIDE RECORDS SUMMARY | 2024-09-05 08:45 | XMS_ITS | Encounter Summary ---
Author Organization [facility] Address [address] [place] [address] Care Team Providers Care Cash On Delivery Clerk Name Role Phone Norma Friedman APRN Primary Care Provider + [phone] Encounter Details Date Type Department Care Team (Latest Contact Info) Description 08/19/2024 Travel Social History Tobacco Use Types Packs/Day Years Used Date Smoking Tobacco: Never Smokeless Tobacco: Never Alcohol Use Standard Drinks/Week Comments Never 0 (1 standard drink = 0.6 oz pur e alcohol) [facility] Utilities Answer Date Recorded In the past 12 months has [employer] electric, gas, oil, or water company threatened [...] all 05/28/2024 [facility] [place] of Occupat ional Health - Occupational Stress [...] 2:34 PM EDT Nneka Cross RN * [place] Suicide Severity Rating Scale (Screener/Recent Self-Report) Question Answer Date of Assessment Author 6. Suicidal Behavior (Lifetime) No 2:34 PM EDT Nneka Cross RN documented as of this encounter Plan of Treatment Upcoming Encounters Date Type Department Care Team (Late st Contact Info) Description 09/09/2024 9:30 AM EDT Routine [facility] OBGYN [address] [place] [address] Jacey Mathews, [employer] HAZMAT TANKER DRIVER [address] [facility] [address] [place] [address] 09/09/2024 9:30 AM EDT Ancillary Procedure [facility] OBGYN [address] [place] [address] documented as of this encounter Visit Diagnoses Not on filedocumented in this encounter Additional Health Concerns Assessment Noted Time PHQ-2 Depression Total Score: 2 05/28/19 25 4:39 PM EDT documented as of this encounter Care Teams Cash On Delivery Clerk Relationship Specialty Start Date End Date Norma Friedman APRN [address] [place] [address] [place] [address] PCP - General Family Medicine 05/14/24 documented as of this encounter
--- OUTSIDE RECORDS SUMMARY | 2024-09-05 08:45 | XMS_ITS | Encounter Summary ---
[facility] Address [address] [place] [address] Care Team Providers Care Inventory Clerk Name Role Phone IvyKade goldbergjoseseven JOLENE Primary Care Provider + [phone] Encounter Details Date Type Department Care Team (Late st Contact Info) Description 07/25/2024 Patient Outreach [facility] DELIVERY [address] [place] [phone] Christy Zabala, RN Social History Tobacco Use Types Packs/Day Years Used Date Smoking Tobacco: Never Smokeless Tobacco: Never Alcohol Use Standard Drinks/Week Comments Never 0 (1 standard drink = 0.6 oz pur e alcohol) [facility] Utilities Answer Date Recorded In the [...] and heating? Not hard at all 05/28/2024 [facility] of Occupat ional Health - Occupational Stress [...] needs assessment and wellness check. Christy Wilson securities dealer Nurse Navigator 07/25/2024, 10:59 EDT documented in this encounter Plan of Treatment Upcoming Encounters Date Type Department Care Team (Late st Contact Info) Description 09/09/2024 9:30 AM EDT Routine [facility] OBGYN [address] [place] [address] Jacey Mathews, NURSING HOME DIRECTOR [address] [place] [address] [place] [address] 09/09/2024 9:30 AM EDT Ancillary Procedure [facility] OBGYN [address] [place] [address] documented as of this encounter Visit Diagnoses Not on filedocumented in this encounter Additional Health Concerns Assessment Noted Time PHQ-2 Depression Total Score: 2 05/28/19 4:39 PM EDT documented as of this encounter Care Teams Inventory Clerk Relationship Specialty Start Date End Date Norma Friedman APRN [address] [place] [address] [place] [address] PCP - General Family Medicine 05/14/24 documented as of this encounter
--- OUTSIDE RECORDS SUMMARY | 2024-09-05 08:45 | XMS_ITS | Encounter Summary ---
[facility] Address [address] [place] [address] Care Team Providers Care It Risk And Assurance Manager Name Role Phone Ivyashlyn Norma FERNÁNDEZ Primary Care Provider + [phone] Encounter Details Date Type Department Care Team (Late st Contact Info) Description 08/27/2024 Telephone [facility] OBGYN [address] [place] [address] Staci Jain MD [address] [facility] [address] [place] [address] Social History Tobacco Use Types Packs/Day Years Used Date Smoking Tobacco: Never Smokeless Tobacco: Never Alcohol Use Standard Drinks/Week Comments Never 0 (1 standard drink = 0.6 oz pur e alcohol) [facility] Utilities Answer Date Recorded In the past 12 months has [employer], [employer], oil, or water [employer] threatened to shut off services in your [...] and heating? Not hard at all 05/28/2024 [facility] [place] of Occupat ional Health - Occupational Stress [...] GED or equivalent No 05/28/2024 Preferred Language Comoran 05/28/2024 PHQ-2 Answer Date Recorded Patient Health [...] 09/09/2024 9:30 AM EDT Routine [facility] OBGYN [address] [place] [address] Jacey Mathews, SHIP RIGGER [address] [facility] [address] [place] [address] 09/09/2024 9:30 AM EDT Ancillary Procedure [facility] OBGYN [address] [place] [address] Scheduled Orders Name Type Priority Associated Diagnoses Orde r Schedule Basic Metabolic Panel Lab Routine History of hypokalemia Expected: 09/01/2024 (Approximate), Expires: 11/27/2025 documented as of this encounter Visit Diagnoses Diagnosis History of hypokalemia- Primary documented in this encounter Additional Health Concerns Assessment Noted Time PHQ-2 Depression Total Score: 2 05/28/19 25 4:39 PM EDT documented as of this encounter Care Teams It Risk And Assurance Manager Relationship Specialty Start Date End Date Norma Friedman APRN [address] [place] [address] [place] [address] PCP - General Family Medicine 05/14/24 documented as of this encounter
--- OUTSIDE RECORDS SUMMARY | 2024-09-05 08:45 | XMS_ITS | Encounter Summary ---
[facility] Address [address] [place] [address] Care Team Providers Care Intermodal Truck Driver Name Role Phone Norma Friedman APRN Primary Care Provider + [phone] Encounter Details Date Type Department Care Team (Late st Contact Info) Description 08/19/2024 Telephone [facility] OBGYN [address] [place] [address] Jacey Mathews, LIGHT OIL OPERATOR [address] [facility] [address] [place] [place] [address] Social History Tobacco Use Types Packs/Day Years Used Date Smoking Tobacco: Never Smokeless Tobacco: Never Alcohol Use Standard Drinks/Week Comments Never 0 (1 standard drink = 0.6 oz pur e alcohol) [facility] Utilities Answer Date Recorded In the past 12 months has [employer], [employer], oil, or water [employer] threatened to shut off services in your [...] and heating? Not hard at all 05/28/2024 [facility] of Occupat ional [facility] - Occupational Stress Questionnaire Answer Date Recorded [...] GED or equivalent No 05/28/2024 Preferred Language Tanzanian 05/28/2024 PHQ-2 Answer Date Recorded Patient Health [...] 09/09/2024 9:30 AM EDT Routine [facility] OBGYN [address] [place] [address] Jacey Mathews, LIGHT OIL OPERATOR [address] [facility] [address] [place] [address] 09/09/2024 9:30 AM EDT Ancillary Procedure [facility] OBGYN [address] [place] [address] documented as of this encounter Visit Diagnoses Not on filedocumented in this encounter Additional Health Concerns Assessment Noted Time PHQ-2 Depression Total Score: 2 05/28/19 25 4:39 PM EDT documented as of this encounter Care Teams Intermodal Truck Driver Relationship Specialty Start Date End Date Norma Friedman, LIGHT OIL OPERATOR [address] [place] [place], [place] [address] PCP - General Family Medicine 05/14/24 documented as of this encounter
--- OUTSIDE RECORDS SUMMARY | 2024-09-05 08:45 | XMS_ITS | Encounter Summary ---
[facility] Address [address] [place] [id number] Care Team Providers Care Dental Manager Name Role Phone Ivyashlyn Norma FERNÁNDEZ Primary Care Provider + [phone] Encounter Details Date Type Department Care Team (Late st Contact Info) Description 08/28/2024 Telephone [facility] OBGYN [address] [address] Staci Jain MD [address] [place] [id number] Social History Tobacco Use Types Packs/Day Years Used Date Smoking Tobacco: Never Smokeless Tobacco: Never Alcohol Use Standard Drinks/Week Comments Never 0 (1 standard drink = 0.6 oz pur e alcohol) [facility] Utilities Answer Date Recorded In the past 12 months has [employer], gas, oil, or water [employer] threatened to shut off services in your [...] and heating? Not hard at all 05/28/2024 [facility] of Occupat ional Health - Occupational [...] GED or equivalent No 05/28/2024 Preferred Language East Timorese 05/28/2024 PHQ-2 Answer Date Recorded Patient Health [...] sit with a family member admitted to [facility] today and does not know if she can make it back for labs (BMP). She does have an appt in [facility] at 10 am tomorrow. Advisedthat it would [...] states she was supposed to come into [facility] office today to have labs drawn however sheis currently hung up at [facility] is wondering if she could just have labs drawn there? documented in this encounter Plan of Treatment Upcoming Encounters Date Type Department Care Team (Late st Contact Info) Description 09/09/2024 9:30 AM EDT Routine [facility] OBGYN [address] [place] [address] Jacey Mathews, MAINTENANCE MECHANIC [address] [facility] [place] [address] [place] [address] 09/09/2024 9:30 AM EDT Ancillary Procedure [facility] OBGYN [address] [place] [address] documented as of this encounter Visit Diagnoses Not on filedocumented in this encounter Additional Health Concerns Assessment Noted Time PHQ-2 Depression Total Score: 2 05/28/19 25 4:39 PM EDT documented as of this encounter Care Teams Dental Manager Relationship Specialty Start Date End Date Norma Friedman APRN [address] [place] [address] [place] [address] PCP - General Family Medicine 05/14/24 documented as of this encounter
--- OUTSIDE RECORDS SUMMARY | 2024-09-05 08:45 | XMS_ITS | Encounter Summary ---
Author Organization [employer] ([place], [place], [place], [place]) Address [address] [place] [address] Care Team Providers Care Water Resource Consultant Name Role Phone Unavailable Primary Care Provider Unavailabl e Encounter Details Date Type Department Care Team (Late st Contact Info) Description 07/17/2019 Transcribed Document [facility] Family Medicine [address] [place] [address] ProviderEleno MD [address] [place], [place] [address] Social History Tobacco Use Types Packs/Day Years [...] On: 07/17/2019 19:17 EDT by KARLENE MCKINLEY assistant teacher primary Process Patient Disposition : AMA/Elope/LWBS KARLENE MCKINLEY [...]
--- OUTSIDE RECORDS SUMMARY | 2024-09-05 08:45 | XMS_ITS | Clinical Summary ---
Author Organization [employer] ([place], [place], [place], [place]) Address [address] [place] [address] Care Team Providers Care Logistics Research Engineer Name Role Phone Unavailable Primary Care Provider [...]
--- OUTSIDE RECORDS SUMMARY | 2024-09-05 08:46 | XMS_ITS | Encounter Summary ---
[facility] Address [address] [place] [phone] Care Team Providers Care Commanding Officer Garage Name Role Phone Ivyashlyn Valentinoseven JOLENE Primary Care Provider + [phone] Encounter Details Date Type Department Care Team (Late st Contact Info) Description 06/26/2024 Results Follow-Up [facility] OBGYN [address] [address] Koby Roberts MD [address] [place] [address] Social History Tobacco Use Types Packs/Day Years Used Date Smoking Tobacco: Never Smokeless Tobacco: Never Alcohol Use Standard Drinks/Week Comments Never 0 (1 standard drink = 0.6 oz pur e alcohol) [facility] Utilities Answer Date Recorded In the past 12 months has [employer], gas, oil, or water [employer] threatened to shut off services in [...] Not hard at all 05/28/2024 [facility] of Occupat ional Health - Occupational Stress [...] GED or equivalent No 05/28/2024 Preferred Language Guatemalan 05/28/2024 PHQ-2 Answer Date Recorded Patient Health [...] Info) Description 09/09/2024 9:30 AM EDT Routine [facility] OBGYN [address] [place] [address] Jacey Mathews, ROUTER OPERATOR 17[address] [facility] [address] [place] [address] 09/09/2024 9:30 AM EDT Ancillary Procedure [facility] OBGYN [address] [place] [address] documented as of this encounter Visit Diagnoses Not on filedocumented in this encounter Additional Health Concerns Assessment Noted Time PHQ-2 Depression Total Score: 2 05/28/19 25 4:39 PM EDT documented as of this encounter Care Teams Commanding Officer Garage Relationship Specialty Start Date End Date Norma Friedman APRN [address] [place] [address] [place] [address] PCP - General Family Medicine 05/14/24 documented as of this encounter
--- OUTSIDE RECORDS SUMMARY | 2024-09-05 08:46 | XMS_ITS | Encounter Summary ---
[facility] Address [address] [place] [id number] Care Team Providers Care Collator Hand Name Role Phone IvyKade goldbergjoseseven JOLENE Primary Care Provider + [phone] Encounter Details Date Type Department Care Team (Late st Contact Info) Description 09/03/2024 Results Follow-Up [facility] OBGYN [address] [place] [address] Staci Jain MD [address] [facility] [address] [place] [address] Social History Tobacco Use Types Packs/Day Years Used Date Smoking Tobacco: Never Smokeless Tobacco: Never Alcohol Use Standard Drinks/Week Comments Never 0 (1 standard drink = 0.6 oz pur e alcohol) [facility] Utilities Answer Date Recorded In the past 12 months has [employer], gas, oil, or water [employer] threatened to shut off services in your [...] heating? Not hard at all 05/28/2024 [facility] of Occupat ional Health - Occupational [...] on file documented as of this encounter Progress Notes * Staci Jain MD - 09/03/2024 10:14 AM EDT Patient has transferred back to previous OB near home documented in this encounter Plan of Treatment Upcoming Encounters Date Type Department Care Team (Late st Contact Info) Description 09/09/2024 9:30 AM EDT Routine [facility] OBGYN [address] [place] [address] Jacey Mathews, HUMAN CAPITAL ANALYST [address] [address] 09/09/2024 9:30 AM EDT Ancillary Procedure [facility] OBGYN [address] [place] [address] documented as of this encounter Visit Diagnoses Not on filedocumented in this encounter Additional Health Concerns Assessment Noted Time PHQ-2 Depression Total Score: 2 05/28/19 25 4:39 PM EDT documented as of this encounter Care Teams Collator Hand Relationship Specialty Start Date End Date Norma Friedman APRN [address] [place] [address] [place] [address] PCP - General Family Medicine 05/14/24 documented as of this encounter
--- OUTSIDE RECORDS SUMMARY | 2024-09-05 08:46 | XMS_ITS | Encounter Summary ---
Author Organization [facility] Address [address] [place] [address] Care Team Providers Care Overhead Worker Name Role Phone Unavailable Primary Care Provider Unavailabl e Encounter Details Date Type Department Care Team (Late st Contact Info) Description 07/22/2024 [facility] Orders [facility] [address] [place] [address] Snady Cardenas MD [address] [facility] [address] [place] [id number] Social History Tobacco Use Types Packs/Day Years [...]
--- OUTSIDE RECORDS SUMMARY | 2024-09-05 08:46 | XMS_ITS | Encounter Summary ---
Author Organization [facility] Address [address] [place] [phone] Care Team Providers Care Costume Mistress Name Role Phone Ivyashlyn Norma FERNÁNDEZ Primary Care Provider + [phone] Encounter Details Date Type Department Care Team (Late st Contact Info) Description 09/02/2024 Telephone [facility] OBGYN [address] [address] Staci Jain MD [address] [place] [phone] Social History Tobacco Use Types Packs/Day Years Used Date Smoking Tobacco: Never Smokeless Tobacco: Never Alcohol Use Standard Drinks/Week Comments Never 0 (1 standard drink = 0.6 oz pur e alcohol) [facility] Utilities Answer Date Recorded In the past 12 months has [employer], [employer], oil, or water [employer] threatened to shut off services in your [...] and heating? Not hard at all 05/28/2024 [facility] of Occupat ional Health - [...] GED or equivalent No 05/28/2024 Preferred Language Egyptian 05/28/2024 PHQ-2 Answer Date Recorded Patient Health [...] encounter Miscellaneous Notes * Telephone Encounter - Frederick Gruber RN - 09/02/2024 5:06 PM EDT She just got d/c'd from [facility] 2 hours ago and they gave her a total 10 MLE of K+ and 3 units of Mag and 2 liters of LR. She has decided to transfer care to [facility] as it iscloser to her like 15 min away. She wants you (Dr. Jain) to know this has nothing to you but rather the nurses and navigation teacher doctor did not relay the labs to you in a faster fashion. She said you can call her if you want and she is not angry. Dr. Jain was notified. * Telephone Encounter - Frederick Gruber RN - 09/02/2024 3:10 PM EDT [employer] message sent to the pt regarding outpt infusion apt tomorrow at [place]. documented in this encounter Plan of Treatment Upcoming Encounters Date Type Department Care Team (Late st Contact Info) Description 09/09/2024 9:30 AM EDT Routine [facility] OBGYN [address] [place] [address] Jacey Mathews, TWIST TESTER [address] [place] [address] [place] [address] 09/09/2024 9:30 AM EDT Ancillary Procedure [facility] OBGYN [address] [place] [address] documented as of this encounter Visit Diagnoses Not on filedocumented in this encounter Additional Health Concerns Assessment Noted Time PHQ-2 Depression Total Score: 2 05/28/19 25 4:39 PM EDT documented as of this encounter Care Teams Costume Mistress Relationship Specialty Start Date End Date Norma Friedman, JOLENE [address] [place] [address] [place] [address] PCP - General Family Medicine 05/14/24 documented as of this encounter
--- OUTSIDE RECORDS SUMMARY | 2024-09-05 08:46 | XMS_ITS | Encounter Summary ---
[facility] Address [address] [place] [address] Care Team Providers Care Machine Long Goods Helper Name Role Phone Norma Friedman APRN Primary Care Provider + [phone] Encounter Details Date Type Department Care Team (Latest Contact Info) Description 07/22/2024 Travel Social History Tobacco Use Types Packs/Day Years Used Date Smoking Tobacco: Never Smokeless Tobacco: Never Alcohol Use Standard Drinks/Week Comments Never 0 (1 standard drink = 0.6 oz pur e alcohol) [facility] Utilities Answer Date Recorded In the past 12 months has [email or web address] electric, gas, oil, or water company threatened [...] and heating? Not hard at all 05/28/2024 [facility] of Occupat ional Health - Occupational Stress [...] GED or equivalent No 05/28/2024 Preferred Language Canadian 05/28/2024 PHQ-2 Answer Date Recorded Patient Health [...] Routine [facility] OBGYN [address] [place] [address] Jacey Mathews, OUTSIDE PARTS SALES [address] [facility] [place] [address] [place] [address] 09/09/2024 9:30 AM EDT Ancillary Procedure [facility] OBGYN [address] [place] [address] documented as of this encounter Visit Diagnoses Not on filedocumented in this encounter Additional Health Concerns Assessment Noted Time PHQ-2 Depression Total Score: 2 05/28/19 25 4:39 PM EDT documented as of this encounter Care Teams Machine Long Goods Helper Relationship Specialty Start Date End Date Norma Friedman APRN [address] [place] [address] [place] [address] [place] [address] PCP - General Family Medicine 05/14/24 documented as of this encounter
[2024-09-05 09:03] LABS: Albumin Level 2.8 g/dl (3.5-5.0); Chloride 104 mmol/L (98-107); Sodium 134 mmol/L (136-145)
[2024-09-05 09:06] LABS: Alanine Aminotransferase 18 U/L (12-78); Albumin/Globulin Ratio 0.8 (1.1-1.8); Alkaline Phosphatase 76 U/L (38-126); Anion Gap 6.8 mEq/L (5-15); Aspartate Amino Transferase 30 U/L (14-36); Bilirubin,Total 0.4 mg/dl (0.2-1.3); Blood Urea Nitrogen 3 mg/dl (7-17); Calcium 8.5 mg/dl (8.4-10.2); Carbon Dioxide 26 mmol/L (22.0-30.0); Creatinine,Serum 0.40 mg/dl (0.52-1.04); Estimated Glomerular Filt Rate 184 ml/min (>60); GFR (African American) 222 ML/MIN (>60); Globulin 3.7 g/dL (1.3-3.2); Glucose 88 mg/dl (74-100); Total Protein,Serum 6.5 g/dl (6.3-8.2)
[2024-09-05 09:11] LABS: Potassium 2.8 mmoL/L (3.5-5.1)
[2024-09-05] MEDS: POTASSIUM CHLORIDE IV (09:47)
[2024-09-05] MEDS: LACTATED RINGERS IV (09:47)
[2024-09-05] MEDS: ONDANSETRON 4MG/2ML VIAL 4 MG IV (11:11)
== END 2024-09-05 14:05 | disposition home or self-care (01) ==
LOC: INF 08:41
PROVIDERS: PCP Nurse Practitioner Family; Visit Provider Nurse Practitioner Obstetrics & Gynecology
DX: E87.6 Hypokalemia (principal)
CPT/HCPCS: 80053; 96365; 96366; J2405; J3480; J7120

== ENCOUNTER 2024-09-07 17:56 | Outpatient (CLI) | payer OTHER, SELFPAY ==
--- OUTSIDE RECORDS SUMMARY | 2024-07-22 07:44 | XMS_ITS | Encounter Summary ---
Author Organization [facility] Address [address] [place] [phone] Care Team Providers Care Rehabilitation Aide Name Role Phone Norma Friedman APRN Primary Care Provider + [phone] Reason for Referral * Diagnostic Imaging (Routine) - Closed Specialty Diagnoses / Procedures Referred By Tarik pedersen Referred To Contact Radiology Diagnoses care, antepartum, unspecified High risk due to history of labor, antepartum History of prior with small for gestational age Procedures [facility] Kelly Watkins APRN [address] [facility] [address] [place] [address] Phone: tel: fax: [facility] US PER DIAG CTR [address] [place] [address] Phone: tel: Referral ID Status Reason Start Date Expiration Date Visits Re quested Visits Authorized [id number] Closed 07/08/2024 10/07/2025 1 1 Reason for Visit * Diagnostic Imaging (Routine) - Closed Specialty Diagnoses / Procedures Referred By Tarik t Referred To Contact Radiology Diagnoses care, antepartum, unspecified High risk due to history of labor, antepartum History of prior with small for gestational age Procedures [facility] Kelly Watkins APRN [address] [facility] [address] [place] [address] Phone: tel: fax: [facility] PER DIAG [facility] [address] [place] [address] Phone: tel: Referral ID Status Reason Start Date Expiration Date Visits Re quested Visits Authorized [id number] Closed 07/08/2024 10/07/2025 1 1 Encounter Details Date Type Department Care Team (Late st Contact Info) Description 07/22/2024 7:44 AM EDT - 07/22/2024 11:59 PM EDT Hospital Encounter [facility] PER DIAG CTR [address] [place] [phone] Kelly Watikns, ECHOCARDIOGRAPHY TECH [address] [place] [address] care, antepartum, unspecified ; High risk due to history of labor, antepartum; History of prior with small for gestational age Discharge Disposition: Home or Self Care Social History Tobacco Use Types Packs/Day Years Used Date Smoking Tobacco: Never Smokeless Tobacco: Never Alcohol Use Standard Drinks/Week Comments Never 0 (1 standard drink = 0.6 oz pur e alcohol) [facility] Utilities Answer Date Recorded In the past 12 months has [employer] electric, gas, oil, or water [employer] threatened to shut off services in your [...] and heating? Not hard at all 05/28/2024 [facility] of Occupat ional Health - Occupational Stress [...] Routine [facility] OBGYN [address] [place] [address] Jacey Mathews, ECHOCARDIOGRAPHY TECH [address] [facility] [address] [place] [address] 09/09/2024 9:30 AM EDT Ancillary Procedure [facility] OBGYN [address] [place] [address] 01/20/2025 3:30 PM EST Office Visit [facility] [address] [facility] [address] [place] [id number] Robbin Escalante MD [address] [facility] [address] [place] [address] (work) documented as of this encounter Procedures Procedure Name Priority Date/Time Associated Diagnosis Comments [facility] Routine 07/22/2024 9:10 AM EDT care, antepartum, unspecified High risk due to history of labor, antepartum History of prior with small for gestational age documented in this encounter Results * [facility] (07/22/2024 9:10 AM EDT) Anatomical Region Laterality Modality Ultrasound 07/22/2024 8:20 AM EDT Narrative 07/22/2024 9:18 AM EDT PAT NAME: CAROLE GIRARD MED REC#: [id number] DA: [id number] PAT GEND: F PAT TYPE: O EXAM TRAVIS: [id number] REF PHYS KELLY WATKINS Comparison Studies There [...] EFW (oz) 13 oz EFW by: Hadlock (OZZ-WN-IL-FL) Extended Tibia 28.0 mm 20w 1d 17% Jamal Fibula 27.3 mm 19w 5d 17% Jamal Radius 26.9 mm 20w 0d 36% Jamal Ulna 30.0 mm 21w 1d 33% Jamal Cav. septi pel. tr 3.7 mm Lay Midwife 5.4 mm CM 4.7 mm 32% Nicolaides [...] normal IVC: normal 3-vessel view: Appears normal 0-qpbhvc-ojoejzn view: Appears normal Rt lung: Appears normal [...] Follow-up as clinically indicated. Coding ======= Description: 61451-80 Detailed Freight Claim Investigator: Cheyenne Spence RDMS Physician: Sebastian Larsen MD, FACOG Electronically signed by: Sebastian Larsen MD, FACOG at: 09:18 Procedure Note Sebastian Larsen MD - 07/22/2024 PAT NAME: CAROLE GIRARD MED REC#: [id number] DA: 1990 PAT GEND: F PAT TYPE: O EXAM TRAVIS: [id number] REF PHYS KELLY WATKINS Comparison Studies There are no relevant prior studies to which this study is beingcompared Patient Status Outpatient Indication ======== Incomplete anatomy, previous SGA, hx c/s x1 Maternal Assessment Wvstid551 cm Height (ft)5 ft Height (in)4 in Zfnlab67 kg Weight (lb)163 lb BMI28.17 kg/m Method ======= Transabdominal ultrasound examination ========= Love . Number of fetuses: 1 Dating ====== Method of dating:based on stated DUSTY GA by prior mtuztulbpc44 w + 1 d DUSTY by prior assessment:12/01/2024 Ultrasound examination on:07/22/2024 GA by U/S based upon:AC, BPD, Femur, HC GA by U/S20 w + 5 d DUSTY by U/S:12/04/2024 Previous dating:based on stated DUSTY, selected on 07/05/2024 Agreed DUSTY of previous datin12/01/2024 Assigned:based on stated DUSTY, selected on 07/22/2024 Assigned GA21 w + 1 d Assigned DUSTY:12/01/2024 okootq695 d Biometry Standard BPD47.5 mm 20w 3d 19% Hadlock OFD63.7 mm 21w 5d 69% Jamal HC177.8 mm 20w 2d 9% Hadlock Cerebellum tr22.0 mm 20w 4d 46% Hill AC160.4 mm 21w 1d 43% Hadlock Femur33.9 mm 20w 5d 24% Hadlock Lfzdodi04.7 mm 21w 0d 40% Jamal HC / AC1.11 HIC607 g 20w 5d 29% Hadlock EFW (lb)0 lb EFW (oz)13 oz EFW by:Hadlock (PVK-RV-JS-FL) Extended Tibia28.0 mm 20w 1d 17% Jamal Jptzdu64.3 mm 19w 5d 17% Jamal Wxnyan22.9 mm 20w 0d 36% Jamal Ulna30.0 mm 21w 1d 33% Jamal Cav. septi pel. tr3.7 mm Vp5.4 mm CM4.7 mm 32% Nicolaides Head / Face / Neck Cephalic index0.75 11% Nicolaides Extremities / Bony Struc FL / BPD0.71 FL / HC0.19 FL / AC0.21 Other Structures NIS649 bpm General Evaluation Cardiac activity present. FHR [...] view:Appears normal SVC:normal IVC:normal 3-vessel view:Appears normal 7-jefzyk-srsqctj view:Appears normal Rt lung:Appears normal Lt lung:normal [...] Structures Uterus / Cervix Cervix:Visualized Approach:Transabdominal Cervical lodami21.6 mm Ovaries / Tubes / Adnexa Rt ovary:Visualized Lt ovary:Visualized Impression Today's exam reveals a SIUP with biometry consistent with dates. Fetalanatomic survey appears normal. Fluid is normal. The placenta is anterior,left. The TA cervical length appears adequate Recommendation Follow-up as clinically indicated. Coding ======= Description:39379-39 Detailed Fre[employer] Claim Investigator: Cheyenne Spence RDMS Physician: Sebastian Larsen MD, FACOG Electronically signed by: Sebastian Larsen MD, FACOG at: 09:18 us Kelly Watkins APRN IMG US ORDERABLES Final Resu lt documented in this encounter Visit Diagnoses Diagnosis care, antepartum, unspecified High risk due to history of labor, antepartum History of prior with small for gestational age documented in this encounter Additional Health Concerns Assessment Noted Time PHQ-2 Depression Total Score: 2 05/28/19 25 4:39 PM EDT documented as of this encounter Care Teams Rehabilitation Aide Relationship Specialty Start Date End Date Norma Friedman APRN [address] [place] G[address] [place]FA[place]IA[place] [address] PCP - General Family Medicine 05/14/24 documented as of this encounter
--- OUTSIDE RECORDS SUMMARY | 2024-07-22 08:00 | XMS_ITS | Encounter Summary ---
Author Organization [facility] Address [address] [place] [phone] Care Team Providers Care Sports Announcer Name Role Phone Ivyashlyn Norma FERNÁNDEZ Primary Care Provider + [phone] Reason for Visit * Reason Comments incomplete anatomy; hx SGA in prev. preg onelia; prev. c/s Encounter Details Date Type Department Care Team (Late st Contact Info) Description 07/22/2024 8:00 AM EDT Office Visit [facility] MATERNAL MEDICINE [address] [place] [address] [place] [address] Sebastian Larsen MD 1700 [facility] [address] [place] [phone] History of prior with small for gestational age (Primary Dx) Social History Tobacco Use Types Packs/Day Years Used Date Smoking Tobacco: Never Smokeless Tobacco: Never Alcohol Use Standard Drinks/Week Comments Never 0 (1 standard drink = 0.6 oz pur e alcohol) [facility] Utilities Answer Date Recorded In the past 12 months has [employer] electric, gas, oil, or water company threatened [...] and heating? Not hard at all 05/28/2024 [facility] [place] of Occupat ional Health - Occupational Stress [...] GED or equivalent No 05/28/2024 Preferred Language Norwegian 05/28/2024 PHQ-2 Answer Date Recorded Patient Health [...] Info) Description 09/09/2024 9:30 AM EDT Routine [facility] OBGYN [address] [place] [address] Jacey Mathews, OIL WELL GUN PERFORATOR OPERATOR 1700 [facility] [address] [place] [address] 09/09/2024 9:30 AM EDT Ancillary Procedure [facility] OBGYN [address] [place] [address] 01/20/2025 3:30 PM EST Office Visit [facility] GASTROENTEROLOGY 1720 [facility] [address] [place] [address] Robbin Escalante MD 1720 [facility] [address] [place] [address] documented as of this encounter Visit Diagnoses Diagnosis History of prior with small for gestational age - Primary documented in this encounter Additional Health Concerns Assessment Noted Time PHQ-2 Depression Total Score: 2 05/28/19 25 4:39 PM EDT documented as of this encounter Care Teams Sports Announcer Relationship Specialty Start Date End Date Norma Friedman APRN [address] [place] [address] [place] [address] PCP - General Family Medicine 05/14/24 documented as of this encounter
--- OUTSIDE RECORDS SUMMARY | 2024-07-22 09:10 | XMS_ITS | Encounter Summary ---
[facility] Organization [facility] Address [address] [place] [phone] Care Team Providers Care Plate Mounter Name Role Phone Norma Friedman APRN Primary Care Provider + [phone] Reason for Referral * Consultation (Routine) - Closed Specialty Diagnoses / Procedures Referred By Contac t Referred To Contact Nephrology Diagnoses History of proteinuria syndrome Procedures [place] OFFICE/OUTPATIENT NEW MODERATE MDM 45 MINUTES Staci Jain MD [address] [place] [address] Phone: tel: fax: [place] [address] Phone: tel: Referral ID Status Reason Start Date Expiration Date V isits Requested Visits Authorized [id number] Closed Specialty Services Required 07/22/2024 10/21/2025 1 1 Reason for Visit * Reason Comments Routine Visit * Diagnostic Imaging (Routine) - Closed Specialty Diagnoses / Procedures Referred By Contact Referred To Contact Obstetrics and Gynecology Diagnoses care, subsequent , second trimester Procedures US Ob 14 + Weeks Single or First Gestation Koby Roberts MD [address] [facility] [address] [place] [address] Phone: tel: fax: [facility] OBGYN [address] [place] [address] Phone: tel: fax: Referral ID Status Reason Start Date Expiration Date Visits Re quested Visits Authorized [id number] Closed 06/11/2024 09/10/2025 1 1 Encounter Details Date Type Department Care Team (Late st Contact Info) Description 07/22/2024 9:10 AM EDT Routine [facility] OBGYN [address] [phone] Staci Jain MD [address] [address] [place]: 21w1d Social History Tobacco Use Types Packs/Day Years Used Date Smoking Tobacco: Never Smokeless Tobacco: Never Alcohol Use Standard Drinks/Week Comments Never 0 (1 standard drink = 0.6 oz pur e alcohol) [facility] Utilities Answer Date Recorded In the past 12 months has [employer], gas, oil, or water [employer] threatened to shut off services in your [...] and heating? Not hard at all 05/28/2024 [facility] [place] of Occupat ional Health - Occupational Stress [...] GED or equivalent No 05/28/2024 Preferred Language Gabonese 05/28/2024 PHQ-2 Answer Date Recorded Patient Health Questionnaire-9 Score 2 05/28/2024 Estimated Date of Delivery Comme nts Yes 12/01/2024 Based on last nd nstrual period of 02/25/2024 Sex and Gender [...] IUGR. Unknown reasons. Has not seen a conveyor man This is my first time seeing patient. Transferred care. Will want to be seen in [facility]. Her care is complicated by (and [...] about 4 weeks (around 08/19/2024) for in [place]. Staci Jain MD 07/22/2024 documented in this encounter Plan of Treatment Upcoming Encounters Date Type Department Care Team (Late st Contact Info) Description 09/09/2024 9:30 AM EDT Routine [facility] OBGYN [address] [place] [address] Jacey Mathews, STEMHOLE BORER AND TOPPER [address] [place] [address] [place] [address] 09/09/2024 9:30 AM EDT Ancillary Procedure [facility] OBGYN [address] [place] [address] 01/20/2025 3:30 PM EST Office Visit [facility] GASTR[facility] [address] [facility] [address] [place] [address] Robbin Escalante MD [address]20 [facility] [address] [place] [address] Scheduled Orders Name Type Priority Associated Diagnoses [...] AM EDT) Glucose, UA Negative Negative mg/dL [facility] Protein, POC 1+(A) Negative mg/dL [facility] Urine 07/22/2024 10:0 2 AM EDT Staci Jain MD POINT OF CARE TEST OR DERABLES Final Result [facility]
[address] [place] [phone], documented in this encounter Visit Diagnoses Diagnosis Multigravida in second trimester- Primary care, subsequent , second trimester History of proteinuria syndrome History of Other postprocedural status documented in this encounter Additional Health Concerns Assessment Noted Time PHQ-2 Depression Total Score: 2 05/28/19 25 4:39 PM EDT documented as of this encounter Care Teams Plate Mounter Relationship Specialty Start Date End Date Norma Friedman APRN [address] [place] G[address] RAFAEL[place] APPIAH [id number] PCP - General Family Medicine 05/14/24 documented as of this encounter
--- OUTSIDE RECORDS SUMMARY | 2024-08-19 10:15 | XMS_ITS | Encounter Summary ---
Author [facility] [address] [place] [id number] Care Team Providers Care Butcher Meat Name Role Phone Norma Friedman APRN Primary Care Provider + [phone] Reason for Visit * Reason Comments Routine Visit Encounter Details Date Type Department Care Team (Late st Contact Info) Description 08/19/2024 10:15 AM EDT Routine [facility] OBGYN [address] [place] [address] Jacey Mathews, ACUTE CARE OCCUPATIONAL THERAPIST [address] [place] [address] GA: 25w1d Social History Tobacco Use Types Packs/Day Years Used Date Smoking Tobacco: Never Smokeless Tobacco: Never Alcohol Use Standard Drinks/Week Comments Never 0 (1 standard drink = 0.6 oz pur e alcohol) [facility] Utilities Answer Date Recorded In the past 12 months has [employer], gas, oil, or water [employer] threatened to shut off services in your [...] and heating? Not hard at all 05/28/2024 [facility] [place] [facility] Health - Occupational Stress Questionnaire Answer Date [...] GED or equivalent No 05/28/2024 Preferred Language Slovenian 05/28/2024 PHQ-2 Answer Date Recorded Patient Health [...] Progress Notes * Jacey Mathews, ACUTE CARE OCCUPATIONAL THERAPIST - 08/19/2024 10:15 AM EDT Images from [...] Info) Description 09/09/2024 9:30 AM EDT Routine [facility] OBGYN [address] [place] [address] Jacey Mathews APRN [address] [facility] [address] [place] [address] 09/09/2024 9:30 AM EDT Ancillary Procedure [facility] OBGYN [address] [place] [address] 01/20/2025 3:30 PM EST Office Visit [facility] GASTROENTEROLOGY [address] [facility] [address] [place] [address] Robbin Escalante MD [address] [facility] [address] [place] [id number] documented as of this encounter Visit Diagnoses Diagnosis Vaginal bleeding in - Primary 25 weeks gestation of documented in this encounter Additional Health Concerns Assessment Noted Time PHQ-2 Depression Total Score: 2 05/28/19 4:39 PM EDT documented as of this encounter Care Teams Butcher Meat Relationship Specialty Start Date End Date Norma Friedman APRN [address] [place] [address] [place] [address] PCP - General Family Medicine 05/14/24 documented as of this encounter
--- OUTSIDE RECORDS SUMMARY | 2024-08-19 13:59 | XMS_ITS | Encounter Summary ---
[facility] Address [address] [place] [id number] Care Team Providers Care Tire Room Supervisor Name Role Phone Ivyashlyn Norma FERNÁNDEZ Primary Care Provider + [phone] Reason for Visit * Reason Comments Vaginal Bleeding * Auth/Cert (Routine) Specialty Diagnoses / Procedures Referred By Contleyla t Referred To Contact Referral ID Status Reason Start Date Expiration Date Visits Re quested Visits Authorized [id number] 1 1 Encounter Details Date Type Department Care Team (Late st Contact Info) Description 08/19/2024 1:59 PM EDT - 08/20/2024 4:28 PM EDT Hospital Encounter [facility] [address] [place] [phone] Rob Wharton MD [address] [facility] [address] [place] [address] Blu Alvarado MD [address] [facility] [address] [place] [address] Dysphagia, unspecified type (Primary Dx) Discharge Disposition: Home or Self Care Social History Tobacco Use Types Packs/Day Years Used Date Smoking Tobacco: Never Smokeless Tobacco: Never Alcohol Use Standard Drinks/Week Comments Never 0 (1 standard drink = 0.6 oz pur e alcohol) [facility] Utilities Answer Date Recorded In the past 12 months has [employer], gas, oil, or water [employer] threatened to shut off services in your [...] heating? Not hard at all 05/28/2024 [facility] [place] of Occupat ional Health - Occupational Stress [...] GED or equivalent No 05/28/2024 Preferred Language Icelandic 05/28/2024 PHQ-2 Answer Date Recorded Patient Health [...] 1:23 PM EDT Polly Lacey RN * [place] Suicide Severity Rating Scale (Screener/Recent Self-Report) Question Answer Date of Assessment Author 6. Suicidal Behavior (Lifetime) No 1:23 PM EDT Polly Cabrera RN documented as of this encounter Discharge Instructions * Attachments The following attachments cannot be sent through Care Everywhere. * Second Trimester of (Icelandic) * Upper Endoscopy Adult Care After (Icelandic) documented in this encounter Medications at Time [...] 08/19/2024 RH Positive 08/19/2024 ABSCRN Negative 08/19/2024 [id number] non-reactive 04/12/2024 HEPCVIRUSABY negative 04/12/2024 URINECX Final [...] her third trimesters prior pregnancies(etiology unknown). 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 She states has never had a [...] IUPC: Resting Tone: Resting Tone by IUPC: [place] Units: Laboratory Results: Lab Results (last 24 [...] AM EDTAssociated Order(s): IP CONSULT TO GASTROENTEROLOGY [facility] Gastroenterology Consult Referring [...] expresses concern regarding recent CT scan at [facility] revealing a hiatal hernia. CT scan done prior to most recent due to ovarian cyst and incidentally revealed hiatal hernia. She reports chronic gastrointestinal symptoms. Review of medical record revealed prior GI referral due to blood per rectum. She reports colonoscopy in 2020 at outside facility that revealed diverticulosis and benign colon polyp. She is currently established with provider at [facility] for gastroenterology care she reports repeat [...] , await recommendations following EGD - consider BATTERY ASSEMBLER evaluation if no etiology for difficulty swallowing [...] her third trimesters prior pregnancies(etiology unknown). 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 She states has never had a [...] IUPC: Resting Tone: Resting Tone by IUPC: [place] Units: Laboratory Results: Lab Results (last 24 [...] Routine [facility] [address] [place] [address] Jacey Mathews, [employer] ENGINEER [address] [facility] [address] [place] [address] 09/09/2024 9:30 AM EDT Ancillary Procedure [facility] [address] [place] [address] 01/20/2025 3:30 PM EST Office Visit [facility] GASTROENTEROLOGY [address] [facility] [address] [place] [address] Robbin Escalante MD [address] [facility] [address] [place] [address] documented as of this encounter Procedures Procedure [...] NONSTRESS TEST Routine 08/19/2024 4:17 PM EDT [facility] Routine 08/19/2024 3:25 PM [...] EDT) Case Report Surgical Pathology Report Case: [id number] Authorizing Provider: Blu Alvarado MD Collected: 08/20/2024 01:55 PM Ordering Location: [facility] Received: 08/20/2024 02:14 PM ENDO SUITES Pathologist: Khalida Rhoades DO Specimen: Gastric, Antrum, antrum bx for path 08/22/2024 9:18 AM EDT [facility] Clinical Information Dysphagia, unspecified type 08/22/2024 9:18 AM EDT [facility] Final Diagnosis Stomach, antrum, biopsy: 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 pylori is negative (no organisms are identified) Negative for intestinal metaplasia, dysplasia, or malignancy 08/22/2024 9:18 AM EDT [facility] at 0918 EDT Gross Description 1. Gastric, Antrum. Received in formalin labeled antrum biopsy is a 0.4 x 0.2 x 0.2 cm pink-see soft tissue fragment submitted entirely in a single cassette. HDM 08/22/2024 9:18 AM EDT [facility] Microscopic Description The slides are reviewed and demonstrate histopathologic features supporting the above rendered diagnosis. 08/22/2024 9:18 AM EDT [facility] Tissue Pyloric antrum structure / Unknown 08/20/2024 1:55 PM EDT 08/20/2024 2:14 PM EDT Blu Alvarado MD PATHOLOGY/CYTOLOGY ORDERABLES Final Result [facility]
[address] [place] [address], * Upper GI Endoscopy (08/20/2024 1:09 PM EDT) us Blu Alvarado MD INTERFACE NEEDS Final Result * (ABNORMAL) Basic Metabolic Panel (08/20/2024 5:25 AM EDT) Glucose 84 65 - 99 mg/dL 08/20/2024 6:13 AM EDT [facility] BUN 2.3(L) 6.0 - 20.0 mg/dL 08/20/2024 6:13 AM EDT [facility] Creatinine 0.51(L) 0.57 - 1.00 mg/dL 08/20/2024 6:13 AM EDT [facility] Sodium 139 136 - 145 mmol/L 08/20/2024 6:13 AM EDT [facility] Potassium 3.5 3.5 - 5.2 mmol/L 08/20/2024 6:13 AM EDT [facility] Chloride 109(H) 98 - 107 mmol/L 08/20/2024 6:13 AM EDT [facility] CO2 23.5 22.0 - 29.0 mmol/L 08/20/2024 6:13 AM EDT [facility] Calcium 7.8(L) 8.6 - 10.5 mg/dL 08/20/2024 6:13 AM EDT [facility] BUN/Creatinine Ratio 4.5(L) 7.0 - 25.0 08/20/2024 6:13 AM EDT [facility] Anion Gap 6.5 5.0 - 15.0 mmol/L 08/20/2024 6:13 AM EDT [facility] eGFR 126.6 >60.0 mL/min/1.7 3 08/20/2024 6:13 AM EDT [facility] Blood Venipuncture / Unknown 08/20/2024 5:25 AM EDT 08/20/2024 5:46 AM EDT [facility] - 08/20/2024 6:13 AM EDT [...] ORDERABLES Final Resu lt Performing Organization Address City/[facility] Co de Phone Number [facility]
[address] [place] [address], [place] [phone] * (ABNORMAL) Potassium (08/19/2024 8:53 PM EDT) Potassium 2.7(L) 3.5 - 5.2 mmol/L 08/19/2024 9:20 PM EDT [facility] Blood Venipuncture / Unknown 08/19/2024 8:53 PM EDT 08/19/2024 9:04 PM EDT Kt Fan DO LAB BLOOD ORDERABLES Final Result Performing Organization Address [facility] Co de Phone Number [facility]
[address] [place] [address], [place] [phone] * ABO RH Specimen Verification (08/19/2024 4:34 PM EDT) ABO Type O 08/19/2024 7:39 PM EDT [facility] RH type Positive 08/19/2024 7:39 PM EDT [facility] Blood Venipuncture / Unknown 08/19/2024 4:34 PM EDT 08/19/2024 4:53 PM EDT Rob Wharton MD BLOOD BANK TEST ORDER FRANCO Final Result Performing Organization Address [facility]/ZIP Co de Phone Number [facility]
[address] [place] [address], * [facility] (08/19/2024 3:25 PM EDT) Anatomical Region Laterality Modality Ultrasound 08/19/2024 3:09 PM EDT Narrative 08/19/2024 4:54 PM EDT PAT NAME: CAROLE GIRARD MED REC#: [id number] DA: [id number] PAT GEND: F PAT TYPE: E EXAM TRAVIS: [id number] REF PHYS ROB WHARTON Comparison Studies The [...] EFW (oz) 9 oz EFW by: Hadlock ([id number]) Extended Cav. septi pel. tr 4.7 mm Fret Saw Operator 3.8 mm CM 7.5 mm 84% Nicolaides [...] Heart / Thorax 3-vessel view: Appears normal 1-mankzg-ffpyghp view: Appears normal Stomach: Appears normal Kidneys: [...] in 4wks for growth. Coding ======= Description: 52064-39 Follow Up Field Hand: RT Annetta Hartmann , [facility] Physician: Jo Chappell MD Electronically signed by: Jo Chappell MD at: 16:54 Procedure Note Jo Chappell MD - 08/19/2024 PAT NAME: CAROLE GIRARD MED REC#: [id number] DA: 1990 PAT GEND: F PAT TYPE: E EXAM TRAVIS: [id number] REF PHYS ROB WHARTON Comparison Studies The findings of this study are compared to the prior ultrasound studydated 07/22/24 Patient Status Inpatient Indication ======== History of c/s x1. History of . Vaginal bleeding. Maternal Assessment Wiumbh030 cm Height (ft)5 ft Height (in)4 in Erlosk19 kg Weight (lb)158 lb BMI27.31 kg/m Method ======= Transabdominal ultrasound examination. View: Limited by patient bodyhabitus ========= Love . Number of fetuses: 1 Dating ====== Method of dating:based on stated DUSTY GA by prior [id number] w + 1 d DUSTY by prior assessment:12/01/2024 Ultrasound examination on:08/19/2024 GA by U/S based upon:AC, BPD, Femur, HC GA by U/S24 w + 2 d DUSTY by U/S:12/07/2024 Previous dating:based on stated DUSTY, selected on 07/22/2024 Agreed DUSTY of previous datin12/01/2024 Assigned:based on stated DUSTY, selected on 08/19/2024 Assigned GA25 w + 1 d Assigned DUSTY:12/01/2024 [email or web address] d Biometry Standard BPD57.6 mm 23w 4d 5% Hadlock OFD81.6 mm 26w 4d 88% Jamal HC225.7 mm 24w 4d 13% Hadlock Cerebellum tr28.9 mm 25w 2d 62% Hill AC194.9 mm 24w 1d 15% Hadlock Femur44.9 mm 24w 6d 27% Hadlock Twxawbi14.3 mm 25w 3d 50% Jamal HC / AC1.16 THT894 g 24w 2d 16% Hadlock EFW (lb)1 lb EFW (oz)9 oz EFW by:Hadlock ([id number]) Extended Cav. septi pel. tr4.7 mm Vp3.8 mm CM7.5 mm 84% Nicolaides Head / Face / Neck Cephalic index0.71 <1% Nicolaides Extremities / Bony Struc FL / BPD0.78 FL / HC0.20 FL / AC0.23 Other Structures [id number] bpm General Evaluation Cardiac activity present. FHR [...] normal Heart / Thorax 3-vessel view:Appears normal 6-zqqpdu-jwiapto view:Appears normal Stomach:Appears normal Kidneys:Appears normal Bladder:Appears normal Gender:female Wants to know gender:yes Maternal Structures Uterus / Cervix Cervix:Visualized Approach:Transabdominal Cervical spphfu06.9 mm Doppler Arterial Umbilical A PI1.01 32% [...] office in 4wks for growth. Coding ======= Description:28786-19 Follow Up Field Hand: RT Annetta Hartmann , [facility] Physician: Jo Chappell MD Electronically signed by: Jo Chappell MD at: 16:54 us Kt Fan DO IMG US ORDERABLES Final Res ult * Protein / Creatinine Ratio, Urine - Urine, Clean Catch (08/19/2024 3:02 PM EDT) Protein/Creati nine Ratio, Urine 126.1 0.0 - 200.0 mg/G Crea 08/20/2024 12:47 AM EDT [facility] Creatinine, Urine 148.3 mg/dL 08/20/2024 12:47 AM EDT [facility] Total Protein, Urine 18.7 mg/dL 08/20/2024 12:47 AM EDT [facility] Urine Urine specimen obtained by clean catch procedure / Unknown Collection / Unknown 08/19/2024 3:02 PM EDT 08/19/2024 4:26 PM EDT us Kt Fan DO URINE ORDERABLES Final Resu lt [facility]
[address] [place] [address], [place] [phone] * (ABNORMAL) Magnesium (08/19/2024 3:02 PM EDT) [facility] Magnesium 1.5(L) 1.6 - 2.6 mg/dL 08/19/2024 5:12 PM EDT [facility] Blood Line / Unknown 08/19/2024 3: 02 PM EDT 08/19/2024 3:10 PM EDT us Kt Fan DO LAB BLOOD ORDERABLES Final Result [facility]
[address] [place] [address], [place] [phone] * Urinalysis, Microscopic Only - Urine, Clean Catch (08/19/2024 3:02 PM EDT) [facility] RBC, UA 0-2 None Seen, 0-2 /HPF 08/19/2024 3:33 PM EDT [facility] WBC, UA 0-2 None Seen, 0-2 /HPF 08/19/2024 3:33 PM EDT [facility] Bacteria, UA None Seen None Seen /HPF 08/19/2024 3:33 PM EDT [facility] Squamous Epithelial Cells, UA 0-2 None Seen, 0-2 /HPF 08/19/2024 3:33 PM EDT [facility] Hyaline Casts, UA None Seen None Seen /LPF 08/19/2024 3:33 PM EDT [facility] Methodology Automated Microscopy 08/19/2024 3:33 PM EDT [facility] Urine Urine specimen obtained by clean catch procedure / Unknown Collection / Unknown 08/19/2024 3:02 PM EDT 08/19/2024 3:13 PM EDT Kt Fan DO URINE ORDERABLES Final Resu lt [facility]
[address] [place] [address], * (ABNORMAL) CBC Auto Differential (08/19/2024 3:02 PM EDT) WBC 9.19 3.40 - 10.80 10*3/mm3 08/19/2024 3:23 PM EDT [facility] RBC 3.58(L) 3.77 - 5.28 10*6/mm3 08/19/2024 3:23 PM EDT [facility] Hemoglobin 10.5(L) 12.0 - 15.9 g/dL 08/19/2024 3:23 PM EDT [facility] Hematocrit 31.4(L) 34.0 - 46.6 % 08/19/2024 3:23 PM EDT [facility] MCV 87.7 79.0 - 97.0 fL 08/19/2024 3:23 PM EDT [facility] MCH 29.3 26.6 - 33.0 pg 08/19/2024 3:23 PM EDT [facility] MCHC 33.4 31.5 - 35.7 g/dL 08/19/2024 3:23 PM EDT [facility] RDW 13.4 12.3 - 15.4 % 08/19/2024 3:23 PM EDT [facility] RDW-SD 42.4 37.0 - 54.0 fl 08/19/2024 3:23 PM EDT [facility] MPV 12.0 6.0 - 12.0 fL 08/19/2024 3:23 PM EDT [facility] Platelets 241 140 - 450 10*3/mm3 08/19/2024 3:23 PM EDT [facility] Neutrophil % 66.8 42.7 - 76.0 % 08/19/2024 3:23 PM EDT [facility] Lymphocyte % 24.4 19.6 - 45.3 % 08/19/2024 3:23 PM EDT [facility] Monocyte % 7.6 5.0 - 12.0 % 08/19/2024 3:23 PM EDT [facility] Eosinophil % 0.7 0.3 - 6.2 % 08/19/2024 3:23 PM EDT [facility] Basophil % 0.2 0.0 - 1.5 % 08/19/2024 3:23 PM EDT [facility] Immature Grans % 0.3 0.0 - 0.5 % 08/19/2024 3:23 PM EDT [facility] Neutrophils, Absolute 6.14 1.70 - 7.00 10*3/mm3 08/19/2024 3:23 PM EDT [facility] Lymphocytes, Absolute 2.24 0.70 - 3.10 10*3/mm3 08/19/2024 3:23 PM EDT [facility] Monocytes, Absolute 0.70 0.10 - 0.90 10*3/mm3 08/19/2024 3:23 PM EDT [facility] Eosinophils, Absolute 0.06 0.00 - 0.40 10*3/mm3 08/19/2024 3:23 PM EDT [facility] Basophils, Absolute 0.02 0.00 - 0.20 10*3/mm3 08/19/2024 3:23 PM EDT [facility] Immature Grans, Absolute 0.03 0.00 - 0.05 10*3/mm3 08/19/2024 3:23 PM EDT [facility] nRBC 0.0 0.0 - 0.2 /100 WBC 08/19/2024 3:23 PM EDT [facility] Blood Line / Unknown 08/19/2024 3: 02 PM EDT 08/19/2024 3:10 PM EDT Kt Fan DO LAB BLOOD ORDERABLES Final Result [facility]
[address] [place] [address], * (ABNORMAL) Urinalysis With Microscopic If Indicated (No Culture) - Urine, Clean Catch (08/19/2024 3:02 PM EDT) Color, UA Yellow Yellow, Straw 08/19/2024 3:33 PM EDT [facility] Appearance, UA Clear Clear 08/19/2024 3:33 PM EDT [facility] pH, UA >=9.0(H) 5.0 - 8.0 08/19/2024 3:33 PM EDT [facility] Specific [place], UA 1.018 1.005 - 1.030 08/19/2024 3:33 PM EDT [facility] Glucose, UA Negative Negative 08/19/2024 3:33 PM EDT [facility] Ketones, UA 15 mg/dL (1+)(A) Negative 08/19/2024 3:33 PM EDT [facility] Bilirubin, UA Negative Negative 08/19/2024 3:33 PM EDT [facility] Blood, UA Negative Negative 08/19/2024 3:33 PM EDT [facility] Protein, UA 30 mg/dL (1+)(A) Negative 08/19/2024 3:33 PM EDT [facility] Leuk Esterase, UA Negative Negative 08/19/2024 3:33 PM EDT [facility] Nitrite, UA Negative Negative 08/19/2024 3:33 PM EDT [facility] Urobilinogen, UA 1.0 E.U./dL 0.2 - 1.0 E.U./dL 08/19/2024 3:33 PM EDT [facility] Urine Urine specimen obtained by clean catch procedure / Unknown Collection / Unknown 08/19/2024 3:02 PM EDT 08/19/2024 3:13 PM EDT us Kt Fan DO URINE ORDERABLES Final Resu lt Performing Organization Address [facility]/ZIP Co de Phone Number [facility]
[address] [place] [address], * Amylase (08/19/2024 3:02 PM EDT) Amylase 73 28 - 100 U/L 08/19/2024 3:36 PM EDT [facility] Blood Line / Unknown 08/19/2024 3: 02 PM EDT 08/19/2024 3:10 PM EDT us Kt Fan DO LAB BLOOD ORDERABLES Final Result Performing Organization Address [facility]/ZIP Co de Phone Number [facility]
[address] [place] [address], [place] [phone] * Lipase (08/19/2024 3:02 PM EDT) Lipase 13 13 - 60 U/L 08/19/2024 3:36 PM EDT [facility] Blood Line / Unknown 08/19/2024 3: 02 PM EDT 08/19/2024 3:10 PM EDT us Kt Fan DO LAB BLOOD ORDERABLES Final Result [facility]
[address] [place] [address], * (ABNORMAL) Comprehensive Metabolic Panel (08/19/2024 3:02 PM EDT) Glucose 75 65 - 99 mg/dL 08/19/2024 3:38 PM EDT [facility] BUN 3.6(L) 6.0 - 20.0 mg/dL 08/19/2024 3:38 PM EDT [facility] Creatinine 0.51(L) 0.57 - 1.00 mg/dL 08/19/2024 3:38 PM EDT [facility] Sodium 137 136 - 145 mmol/L 08/19/2024 3:38 PM EDT [facility] Potassium 2.6(LL) 3.5 - 5.2 mmol/L 08/19/2024 3:38 PM EDT [facility] Comment:Specimen hemolyzed. Result may be falsely elevated. Chloride 99 98 - 107 mmol/L 08/19/2024 3:38 PM EDT [facility] CO2 24.2 22.0 - 29.0 mmol/L 08/19/2024 3:38 PM EDT [facility] Calcium 8.8 8.6 - 10.5 mg/dL 08/19/2024 3:38 PM EDT [facility] Total Protein 6.6 6.0 - 8.5 g/dL 08/19/2024 3:38 PM EDT [facility] Albumin 3.4(L) 3.5 - 5.2 g/dL 08/19/2024 3:38 PM EDT [facility] ALT (SGPT) 10 1 - 33 U/L 08/19/2024 3:38 PM EDT [facility] AST (SGOT) 22 1 - 32 U/L 08/19/2024 3:38 PM EDT [facility] Alkaline Phosphatase 64 39 - 117 U/L 08/19/2024 3:38 PM EDT [facility] Total Bilirubin 0.5 0.0 - 1.2 mg/dL 08/19/2024 3:38 PM EDT [facility] Globulin 3.2 gm/dL 08/19/2024 3:38 PM EDT [facility] Comment:Calculated Result A/G Ratio 1.1 g/dL 08/19/2024 3:38 PM EDT [facility] BUN/Creatinine Ratio 7.1 7.0 - 25.0 08/19/2024 3:38 PM EDT [facility] Anion Gap 13.8 5.0 - 15.0 mmol/L 08/19/2024 3:38 PM EDT [facility] eGFR 126.6 >60.0 mL/min/1.7 3 08/19/2024 3:38 PM EDT [facility] Blood Line / Unknown 08/19/2024 3: 02 PM EDT 08/19/2024 3:10 PM EDT [facility] - 08/19/2024 3:38 PM EDT [...] Fan DO LAB BLOOD ORDERABLES Final Result [facility]
[address] [place] [address], * Type & Screen (08/19/2024 3:02 PM EDT) ABO Type O 08/19/2024 3:51 PM EDT [facility] RH type Positive 08/19/2024 3:51 PM EDT [facility] Antibody Screen Negative 08/19/2024 3:51 PM EDT [facility] T&S Expiration Date 08/22/2024 11:59:59 PM 08/19/2024 3:51 PM EDT [facility] Blood Line / Unknown 08/19/2024 3: 02 PM EDT 08/19/2024 3:15 PM EDT Kt Fan DO BLOOD BANK TEST ORDERABLES Edited Result - Final [facility]
[address] [place] [address], documented in this encounter Visit Diagnoses Diagnosis [...] AM EDT 125 mL/hr 125 mL/hr New 08/20/2024 4:38 AM EDT 125 mL/hr 125 mL/hr 08/19/2024 9:51 PM EDT 125 mL/hr 125 [...] Daily, First dose on Mon08/19/24 at 1800 08/20/2024 8:38 AM EDT 500 mL/hr 08/19/2024 5:43 PM EDT 500 mL/hr lactated ringers bolus 1,000 mL 1,000 mL, Intravenous, at 2,000 mL/hr, Administer over 0.5 Hours, Once, On Mon08/19/24 at 1530, For 1 dose Restarted 08/19/2024 3:55 PM EDT 2000 mL/hr 08/19/2024 3:02 PM EDT 1,000 mL 2000 [...] BPA Driven Protocol Open Order & Select [facility] Electrolyte Replacement Protocol Algorithm to View Details [...] Every 12 Hours Scheduled, First dose on 7/14/25 at 2100 sodium chloride 0.9 % infusion [...] Nneka Cross RN)1510 (Stopped - Provider: Nneka Cross RN)1555 (Restarted - Provider: Nneka Cross RN) [...] patients ONLY 1823 (New Bag - Provider: iPlar Verduzco RN - Comment: waiting on med from pharmacy)2017 (New Bag - Provider: Yun Nicole RN)2150 (New Bag - Provider: Yun Nicole RN - Comment: Slowed down infusion)2234 (New Bag - Provider: Yun Nicole RN)2333 [...] ONLY 1047 (New Bag - Provider: Pilar Verduczo RN)1148 (New Bag - Provider: Pilar Verduzco [...] Nicole, RN)0838 (Stopped - Provider: Pilar Verduzco, RN)1043 [...] BPA Driven Protocol Open Order & Select [facility] Electrolyte Replacement Protocol Algorithm to View Details [...] documented as of this encounter Care Teams Tire Room Supervisor Relationship Specialty Start Date End Date Norma Friedman APRN [address] [place] G3 RAFAELA APPIAH [id number] PCP - General Family Medicine 05/14/24 documented as of this encounter
--- OUTSIDE RECORDS SUMMARY | 2024-08-20 13:33 | XMS_ITS | Encounter Summary ---
[facility] Address [address] [place] [id number] Care Team Providers Care Pipe Fitter Supervisor Maintenance Name Role Phone Norma Friedman APRN Primary Care Provider + [phone] Reason for Visit * Reason Comments Vaginal Bleeding * Auth/Cert (Routine) Specialty Diagnoses / Procedures Referred By Tarik t Referred To Contact Referral ID Status Reason Start Date Expiration Date Visits Re quested Visits Authorized [id number] 1 1 Encounter Details Date Type Department Care Team (Late st Contact Info) Description 08/20/2024 1:33 PM EDT - 08/20/2024 2:05 PM EDT Surgery [facility] ENDO SUITES [address] [place] [address] Blu Alvarado MD [address] [facility] [address] [place] [address] ESOPHAGOGASTRODUODENOSCOPY [07626 (CPT )] Social History Tobacco Use Types Packs/Day Years Used Date Smoking Tobacco: Never Smokeless Tobacco: Never Alcohol Use Standard Drinks/Week Comments Never 0 (1 standard drink = 0.6 oz pur e alcohol) [facility] Utilities Answer Date Recorded In the [...] and heating? Not hard at all 05/28/2024 [facility] - Occupational Stress Questionnaire Answer Date [...] GED or equivalent No 05/28/2024 Preferred Language Armenian 05/28/2024 PHQ-2 Answer Date Recorded Patient Health [...] 1:23 PM EDT Polly Lacey RN * [place] Suicide Severity Rating Scale (Screener/Recent Self-Report) Question Answer Date of Assessment Author 6. Suicidal Behavior (Lifetime) No 1:23 PM EDT Polly Cabrera RN documented as of this encounter Discharge Instructions * Attachments The following attachments cannot be sent through Care Everywhere. * Second Trimester of (Armenian) * Upper Endoscopy Adult Care After (Armenian) documented in this encounter Medications at Time [...] 08/19/2024 RH Positive 08/19/2024 ABSCRN Negative 08/19/2024 [id number] non-reactive 04/12/2024 HEPCVIRUSABY negative 04/12/2024 URINECX Final [...] IUPC: Resting Tone: Resting Tone by IUPC: [place] Units: Cervix: Exam by: Method: sterile vaginal [...] from the original note were not included. [facility] Obstetric History and Physical Referring Provider: Rob [...] her third trimesters prior pregnancies(etiology unknown). Patient's transaction advisory services manager is in [facility]. She states has never had a [...] IUPC: Resting Tone: Resting Tone by IUPC: [place] Units: Laboratory Results: Lab Results (last 24 [...] AM EDTAssociated Order(s): IP CONSULT TO GASTROENTEROLOGY [facility] Gastroenterology Consult Referring Provider: Dr. Fan/Dr. Wharton PCP: Fryman, Eugonda, INTERNET DATABASE SPECIALIST Reason for Consultation: IUP 25 weeks gestation, [...] , await recommendations following EGD - consider TAR DISTILLATION SUPERVISOR evaluation if no etiology for difficulty [...] from the original note were not included. [facility] Obstetric History and Physical Referring Provider: Rob [...] her third trimesters prior pregnancies(etiology unknown). Patient's transaction advisory services manager is in [facility]. She states has never had a [...] IUPC: Resting Tone: Resting Tone by IUPC: [place] Units: Laboratory Results: Lab Results (last 24 [...] Info) Description 09/09/2024 9:30 AM EDT Routine [facility] OBGYN [address] [place] [address] Jacey Mathews, INTERNET DATABASE SPECIALIST [address] [facility] [address] [place] [address] 09/09/2024 9:30 AM EDT Ancillary Procedure [facility] OBGYN [address] [place] [address] 01/20/2025 3:30 PM EST Office Visit [facility] GASTROENTEROLOGY [address] [facility] [address] [place] [address] Robbin Escalante MD [address] [facility] [address] [place] [address] documented as of this encounter Procedures Procedure Name Priority Date/Time Associated Diagnosis Comments TISSUE PATHOLOGY EXAM Routine 08/20/2024 1:55 PM EDT Dysphagia, unspecified type IN ESOPHAGOGASTRODUODENOSCOP Y TRANSORAL DIAGNOSTIC 08/20/2024 1:44 PM EDT Dysphagia, unspecified type UPPER GI ENDOSCOPY 08/20/2024 1:09 PM EDT BASIC METABOLIC PANEL STAT 08/20/2024 5:25 AM EDT POTASSIUM STAT 08/19/2024 8:53 PM EDT ABORH 2ND SPECIMEN VERIFICATION STAT 08/19/2024 4:34 PM EDT NONSTRESS TEST Routine 08/19/2024 4:17 PM EDT [facility] Routine 08/19/2024 3:25 PM [...] EDT) Case Report Surgical Pathology Report Case: [id number] Authorizing Provider: Blu Alvarado MD Collected: 08/20/2024 [...] [facility] LABORATORY
[address] [place] [address], [place] [phone] * Upper GI Endoscopy (08/20/2024 1:09 PM EDT) us Blu Alvarado MD INTERFACE NEEDS Final Result * (ABNORMAL) Basic Metabolic Panel (08/20/2024 5:25 AM EDT) Glucose 84 65 - 99 mg/dL 08/20/2024 6:13 AM T [facility] LABORATORY BUN 2.3(L) 6.0 - 20.0 mg/dL 08/20/2024 6:13 AM T [facility] LABOR[facility]ORY Creatinine 0.51(L) 0.57 - 1.00 mg/dL 08/20/2024 6:13 AM EDT [facility] LAB[facility]ORY Sodium 139 136 - 145 mmol/L 08/20/2024 6:13 AM EDT [facility] Potassium 3.5 3.5 - 5.2 mmol/L 08/20/2024 6:13 AM EDT [facility] Chloride 109(H) 98 - 107 mmol/L 08/20/2024 6:13 AM EDT [facility] CO2 23.5 22.0 - 29.0 mmol/L 08/20/2024 6:13 AM EDT [facility] LAB[facility]ORY Calcium 7.8(L) 8.6 - 10.5 mg/dL 08/20/2024 6:13 AM EDT [facility] LABOR[facility]ORY BUN/Creatinine Ratio 4.5(L) 7.0 - 25.0 08/20/2024 6:13 AM T [facility] LABORATORY Anion Gap 6.5 5.0 - 15.0 mmol/L 08/20/2024 6:13 AM [facility] LAB[facility] eGFR 126.6 >60.0 mL/min/1.7 3 08/20/2024 6:13 AM T [facility] LABORATORY Blood Venipuncture / Unknown 08/20/2024 5:25 AM EDT 08/20/2024 5:46 AM EDT [facility] LABORATORY - 08/20/2024 6:13 AM EDT [...] ORDERABLES Final Resu lt Performing Organization Address [facility]/ZIP Co de Phone Number [facility] LABORATORY
[address] [place] [address], * (ABNORMAL) Potassium (08/19/2024 8:53 PM EDT) Potassium 2.7(L) 3.5 - 5.2 mmol/L 08/19/2024 9:20 PM EDT [facility] LABORATORY Blood Venipuncture / Unknown 08/19/2024 8:53 PM EDT 08/19/2024 9:04 PM EDT Kt Fan DO LAB BLOOD ORDERABLES Final Result Performing Organization Address [facility]/ZIP Co de Phone Number [facility] LABORATORY
[address] [place] [address], * ABO RH Specimen Verification (08/19/2024 4:34 PM EDT) ABO Type O 08/19/2024 7:39 PM EDT [facility] BB LABORATORY RH type Positive 08/19/2024 7:39 PM EDT [facility] BB LABORATORY Blood Venipuncture / Unknown 08/19/2024 4:34 PM EDT 08/19/2024 4:53 PM EDT Rob Wharton MD BLOOD BANK TEST ORDER FRANCO Final Result Performing Organization Address [facility]/ZIP Co de Phone Number [facility] BB LABORATORY
[address] [place] [address], * [facility] (08/19/2024 3:25 PM EDT) Anatomical Region Laterality Modality Ultrasound 08/19/2024 3:09 PM EDT Narrative 08/19/2024 4:54 PM EDT PAT NAME: CAROLE GIRARD MED REC#: [id number] DA: [id number] PAT GEND: F PAT TYPE: E EXAM TRAVIS: [id number] REF PHYS ROB WHARTON Comparison Studies The [...] EFW (oz) 9 oz EFW by: Hadlock ([id number]) Extended Cav. septi pel. tr 4.7 mm Pipe Or Steam Fitter Furnace Installer 3.8 mm CM 7.5 mm 84% Nicolaides [...] Heart / Thorax 3-vessel view: Appears normal 8-tglnpl-ngotelv view: Appears normal Stomach: Appears normal Kidneys: [...] in 4wks for growth. Coding ======= Description: 76429-92 Follow Up Project Manager Retail: RT Annetta Hartmann , [facility] Physician: Jo Chappell MD Electronically signed by: Jo Chappell MD at: 16:54 Procedure Note Jo Chappell MD - 08/19/2024 PAT NAME: CAROLE GIRARD MED REC#: [id number] DA: [id number] PAT GEND: F PAT TYPE: E EXAM TRAVIS: [id number] REF PHYS ROB WHARTON Comparison Studies The findings of this study are compared to the prior ultrasound studydated 07/22/24 Patient Status Inpatient Indication ======== History of c/s x1. History of . Vaginal bleeding. Maternal Assessment Jmqeco791 cm Height (ft)5 ft Height (in)4 in Izujfs37 kg Weight (lb)158 lb BMI27.31 kg/m Method ======= Transabdominal ultrasound examination. View: Limited by patient bodyhabitus ========= Love . Number of fetuses: 1 Dating ====== Method of dating:based on stated DUSTY GA by prior [id number] w + 1 d DUSTY by prior assessment:12/01/2024 Ultrasound examination on:08/19/2024 GA by U/S based upon:AC, BPD, Femur, HC GA by U/S24 w + 2 d DUSTY by U/S:12/07/2024 Previous dating:based on stated DUSTY, selected on 07/22/2024 Agreed DUSTY of previous datin12/01/2024 Assigned:based on stated DUSTY, selected on 08/19/2024 Assigned GA25 w + 1 d Assigned DUSTY:12/01/2024 [id number] d Biometry Standard BPD57.6 mm 23w 4d 5% Hadlock OFD81.6 mm 26w 4d 88% Jamal HC225.7 mm 24w 4d 13% Hadlock Cerebellum tr28.9 mm 25w 2d 62% Hill AC194.9 mm 24w 1d 15% Hadlock Femur44.9 mm 24w 6d 27% Hadlock Vpyfjqd71.3 mm 25w 3d 50% Jamal HC / AC1.16 HVP777 g 24w 2d 16% Hadlock EFW (lb)1 lb EFW (oz)9 oz EFW by:Hadlock ([id number]-FY-FL) Extended Cav. septi pel. tr4.7 mm Vp3.8 mm CM7.5 mm 84% Nicolaides Head / Face / Neck Cephalic index0.71 <1% Nicolaides Extremities / Bony Struc FL / BPD0.78 FL / HC0.20 FL / AC0.23 Other Structures [id number] bpm General Evaluation Cardiac activity present. FHR [...] normal Heart / Thorax 3-vessel view:Appears normal 7-qbykdl-tbgoiks view:Appears normal Stomach:Appears normal Kidneys:Appears normal Bladder:Appears normal Gender:female Wants to know gender:yes Maternal Structures Uterus / Cervix Cervix:Visualized Approach:Transabdominal Cervical kxjqip47.9 mm Doppler Arterial Umbilical A PI1.01 32% [...] office in 4wks for growth. Coding ======= Description:62410-05 Follow Up Project Manager Retail: RT Annetta Hartmann , [facility] Physician: Jo Chappell MD Electronically signed by: Jo Chappell MD at: 16:54 us Kt Fan DO IMG US ORDERABLES Final Res ult * Protein / Creatinine Ratio, Urine - Urine, Clean Catch (08/19/2024 3:02 PM EDT) Protein/Creati nine Ratio, Urine 126.1 0.0 - 200.0 mg/G Crea 08/20/2024 12:47 AM EDT [facility] Creatinine, Urine 148.3 mg/dL 08/20/2024 12:47 AM EDT [facility] Total Protein, Urine 18.7 mg/dL 08/20/2024 12:47 AM EDT [facility] Urine Urine specimen obtained by clean catch procedure / Unknown Collection / Unknown 08/19/2024 3:02 PM EDT 08/19/2024 4:26 PM EDT us Kt Fan DO URINE ORDERABLES Final Resu lt [facility] LABORATORY
[address] [place] [address], [place] [phone] * (ABNORMAL) Magnesium (08/19/2024 3:02 PM EDT) Magnesium 1.5(L) 1.6 - 2.6 mg/dL 08/19/2024 5:12 PM EDT [facility] LABOR[facility]ORY Blood Line / Unknown 08/19/2024 3: 02 PM EDT 08/19/2024 3:10 PM EDT us Kt Fan DO LAB BLOOD ORDERABLES Final Result [facility] LABORATORY
[address] [place] [address], [place] [phone] * Urinalysis, Microscopic Only - Urine, Clean [...] [facility] LABORATORY
[address] [place] [address], * (ABNORMAL) CBC Auto Differential (08/19/2024 3:02 [...] 0.0 - 0.5 % 08/19/2024 3:[facility] Neutrophils, Absolute 6.14 1.70 - 7.00 10*3/mm3 08/19/2024 3:23 [facility] Lymphocytes, Absolute 2.24 0.70 - [...] Result [facility] LABORATORY
[address] [place] [address], * (ABNORMAL) Urinalysis With Microscopic If Indicated (No Culture) - Urine, Clean Catch (08/19/2024 3:02 PM EDT) Color, UA Yellow Yellow, Straw 08/19/2024 3:33 PM EDT [facility] LAB[facility] Appearance, UA Clear Clear 08/19/2024 3:33 PM EDT [facility] pH, UA >=9.0(H) 5.0 - 8.0 08/19/2024 3:33 PM EDT [facility] LAB[facility] Specific Provencal, UA 1.018 1.005 - 1.030 08/19/2024 3:33 [...] [facility] LABORATORY
[address] [place] [address], [place] [phone] * Amylase (08/19/2024 3:02 PM EDT) Amylase 73 28 - 100 U/L 08/19/2024 3:36 PM EDT [facility] LAB[facility] Blood Line / Unknown 08/19/2024 3: 02 PM EDT 08/19/2024 3:10 PM EDT us Kt Fan DO LAB BLOOD ORDERABLES Final Result Performing Organization Address [facility] Co de Phone Number [facility] LABORATORY
[address] [place] [address], [place] [phone] * Lipase (08/19/2024 3:02 PM EDT) Lipase 13 13 - 60 U/L 08/19/2024 3:36 PM EDT [facility] Blood Line / Unknown 08/19/2024 3: 02 PM EDT 08/19/2024 3:10 PM EDT us Kt Fan DO LAB BLOOD ORDERABLES Final Result Performing Organization Address [facility]/ZIP Co de Phone Number [facility] LABORATORY
[address] [place] [address], [place] [phone] * (ABNORMAL) Comprehensive Metabolic Panel (08/19/2024 3:02 PM EDT) Glucose 75 65 - 99 mg/dL 08/19/2024 3:38 PM EDT [facility] LAB[facility] BUN 3.6(L) 6.0 - 20.0 mg/dL 08/19/2024 3:38 PM EDT [facility] Creatinine 0.51(L) 0.57 - 1.00 mg/dL 08/19/2024 3:38 PM EDT [facility] Sodium 137 136 - 145 mmol/L 08/19/2024 3:38 PM EDT [facility] Potassium 2.6(LL) 3.5 - 5.2 mmol/L 08/19/2024 3:38 PM EDT [facility] Comment:Specimen hemolyzed. Result may be falsely elevated. Chloride 99 98 - 107 mmol/L 08/19/2024 3:38 PM EDT [facility]ORY CO2 24.2 22.0 - 29.0 mmol/L 08/19/2024 3:38 PM EDT [facility] Calcium 8.8 8.6 - 10.5 mg/dL 08/19/2024 3:38 PM EDT [facility] Total Protein 6.6 6.0 - 8.5 g/dL 08/19/2024 3:38 PM EDT [facility] Albumin 3.4(L) 3.5 - 5.2 g/dL 08/19/2024 3:38 PM EDT [facility] ALT (SGPT) 10 1 - 33 U/L 08/19/2024 3:38 PM EDT [facility] AST (SGOT) 22 1 - 32 U/L 08/19/2024 3:38 PM EDT [facility] Alkaline Phosphatase 64 39 - 117 U/L 08/19/2024 3:38 PM EDT [facility] Total Bilirubin 0.5 0.0 - 1.2 mg/dL 08/19/2024 3:38 PM EDT [facility] Globulin 3.2 gm/dL 08/19/2024 3:38 PM EDT [facility] LAB[facility]ORY Comment:Calculated [...] 02 PM EDT 08/19/2024 3:10 PM EDT [facility] LABORATORY - 08/19/2024 3:38 PM EDT [...] Result [facility] LABORATORY
[address] [place] [address], * Type & Screen (08/19/2024 3:02 PM [...] [facility] BB LABORATORY
[address] [place] [address], documented in this encounter Visit Diagnoses Diagnosis [...] EDT 10 mEq 10 0 mL/hr Bag 08/20/2024 10:47 AM EDT 10 mEq [...] Nneka Cross RN)1555 (Restarted - Provider: Nneka Cross, RN) [...] from pharmacy)2017 (New Bag - Provider: Yun Nicole, BRIT)2150 (New Bag - Provider: Yun Nicole RN - Comment: Slowed down infusion)223 (New Bag - Provider: Yun Nicole, RN)2333 (New Bag - Provider: Yun Nicole, RN) 004 (New Bag - Provider: Yun [...] as of this encounter Care Teams Pipe Fitter Supervisor Maintenance Relationship Specialty Start Date End Date Norma Friedman APRN [address] [place] G3 RAFAELA APPIAH [address] PCP - General Family Medicine 05/14/24 documented as of this encounter
--- OUTSIDE RECORDS SUMMARY | 2024-08-20 13:44 | XMS_ITS | Encounter Summary ---
[facility] Address [address] [place] [id number] Care Team Providers Care Colorist Photography Name Role Phone IvyKade goldbergdev FERNÁNDEZ Primary Care Provider + [phone] Reason for Visit * Auth/Cert (Routine) Specialty Diagnoses / Procedures Referred By Contac t Referred To Contact Referral ID Status Reason Start Date Expiration Date Visits Re quested Visits Authorized 1 1 Encounter Details Date Type Department Care Team (Late st Contact Info) Description 08/20/2024 1:44 PM EDT Anesthesia Event [facility] ENDO SUITES [address] [place] [phone] Akash Anguiano MD [address] [place] [address] Liborio Peralta CRNA [address] [place] [address] Anesthesia Record Procedure Summary Procedure Name Responsible [...] drink = 0.6 oz pur e alcohol) [facility] Utilities Answer Date Recorded In [...] and heating? Not hard at all 05/28/2024 [facility] [place] of Occupat ional Health - Occupational Stress [...] 1:23 PM EDT Polly Lacey RN * [place] Suicide Severity Rating Scale (Screener/Recent Self-Report) Question Answer Date of Assessment Author 6. Suicidal Behavior (Lifetime) No 1:23 PM EDT Polly Cabrera RN documented as of this encounter OR Notes * Anesthesia Postprocedure Evaluation - Liborio Peralta CRNA - 08/20/2024 2:18 PM EDT Patient: Whitney Presley Procedure Summary Date: 08/20/24 Room / Location: [facility] ENDOSCOPY 3 / [facility] [...] sounds: normal. 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 Plan discussed with SELF SEALING FUEL TANK BUILDER. CODE STATUS: documented in this encounter Plan of Treatment Upcoming Encounters Date Type Department Care Team (Late st Contact Info) Description 09/09/2024 9:30 AM EDT Routine [facility] [place] [address] Jacey Mathews, AUTOMOTIVE GLASS TECHNICIAN [address] [facility] [place] [address] [place] [address] 09/09/2024 9:30 AM EDT Ancillary Procedure [facility] OBGYN [address] [place] [address] 01/20/2025 3:30 PM EST Office Visit [facility] GASTROENTEROLOGY [address] [facility] [address] [place] [address] Robbin Escalante MD [address] [facility] [address] [place] [address] documented as of this encounter Procedures Procedure Name Priority Date/Time Associated Diagnosis Comments ANESTHESIA INTUBATION Routine 08/20/2024 2:02 PM EDT documented in this encounter Results * BH AN ETT AIRWAY (08/20/2024 2:02 PM EDT) Narrative Liborio Peralta CRNA - 08/20/2024 2:02 PM EDT Liborio [...] documented as of this encounter Care Teams Colorist Photography Relationship Specialty Start Date End Date Norma Friedman APRN [address] [place] [address] [place] [address] PCP - General Family Medicine 05/14/24 documented as of this encounter
--- OUTSIDE RECORDS SUMMARY | 2024-08-29 10:00 | XMS_ITS | Encounter Summary ---
Author [facility] Address [address] [place] [address] Care Team Providers Care Pleating Machine Operator Name Role Phone IvyKade goldbergjoseseven JOLENE Primary Care Provider + [phone] Reason for Visit * Reason Comments Problem Encounter Details Date Type Department Care Team (Late st Contact Info) Description 08/29/2024 10:00 AM EDT Routine [facility] OBGYN [address] [place] [address] Staci Jain MD [address] [place] [address] GA: 26w4d Social History Tobacco Use Types Packs/Day Years Used Date Smoking Tobacco: Never Smokeless Tobacco: Never Alcohol Use Standard Drinks/Week Comments Never 0 (1 standard drink = 0.6 oz pur e alcohol) [facility] Utilities Answer Date Recorded In the past 12 months has [employer], gas, oil, or water [employer] threatened to shut off services in [...] and heating? Not hard at all 05/28/2024 [facility] [place] [facility] - Occupational Stress Questionnaire Answer [...] GED or equivalent No 05/28/2024 Preferred Language Romanian 05/28/2024 PHQ-2 Answer Date Recorded Patient Health [...] Info) Description 09/09/2024 9:30 AM EDT Routine [facility] OBGYN [address] [place] [address] Jacey Mathews, CAFETERIA OPERATOR [address] [facility] [address] [place] [address] 09/09/2024 9:30 AM EDT Ancillary Procedure [facility] OBGYN [address] [place] [address] 01/20/2025 3:30 PM EST Office Visit [facility] GASTR[facility]OLOGY [address] [facility] [address] [place] [address] Robbin Escalante MD [address] [facility] [address] [place] [address] Scheduled Orders Name Type Priority Associated Diagnoses Orde r Schedule H. Pylori Breath Test - Breath, Lung Microbiology Routine Dysphagia, unspecified type Ordered: 08/29/2024 documented as of this encounter Procedures Procedure [...] CBC & Differential (08/29/2024 11:05 AM EDT) Pathologist [facility] WBC 9.26 3.40 - 10.80 10*3/mm3 [facility] [...] 11:0 5 AM EDT 08/29/2024 Narrative [facility] ([facility]) - 08/30/2024 6:09 AM EDT Performed at: [address] [place] [id number] Direct Service Worker: Kevin Harman MD, Phone: [phone] Patient Fasting: N Staci Jain MD LAB BLOOD ORDERABLES Final Result [facility] ([facility]) [address] [place] [address], [place] [phone] [facility] [address] [place] [address], [place] [phone] * (ABNORMAL) Comprehensive Metabolic Panel (08/29/2024 11:05 AM EDT) [facility] Glucose 72 65 - 99 mg/dL [facility] [...] 11:0 5 AM EDT 08/29/2024 Narrative [facility] (AMBULATORY) - 08/30/2024 6:09 AM EDT Performed at: [address] [place] [id number] Direct Service Worker: Kevin Harman MD, Phone: [phone] Patient Fasting: N Staci Jain MD LAB BLOOD ORDERABLES Final Result Performing Organization Address City/[facility] Co de Phone Number [facility] (AMBULATORY) [address] [place] [address], [place] [phone] [facility] [address] [place] [address], [place] [phone] * (ABNORMAL) POC Urinalysis Dipstick (08/29/2024 10:13 AM EDT) Glucose, UA Negative Negative mg/dL [facility] Protein, POC Trace(A) Negative mg/dL [facility] Urine 08/29/2024 10:1 3 AM EDT Staci Jain MD POINT OF CARE TEST OR DERABLES Final Result [facility]
[address] [place] [address], documented in this encounter Visit Diagnoses Diagnosis [...] documented as of this encounter Care Teams Pleating Machine Operator Relationship Specialty Start Date End Date Norma Friedman APRN [address] [place] G[address] RAFAEL[place] APPIAH [address] PCP - General Family Medicine 05/14/24 documented as of this encounter
--- OUTSIDE RECORDS SUMMARY | 2024-09-07 17:59 | XMS_ITS | Encounter Summary ---
[facility] Address [address] [place] [address] Care Team Providers Care Guest Service Host Name Role Phone Ivyashlyn Norma FERNÁNDEZ Primary Care Provider + [phone] Encounter Details Date Type Department Care Team (Late st Contact Info) Description 08/27/2024 Telephone [facility] OBGYN [address] [place] [address] Staci Jain MD 1700 [facility] [address] [place] [address] Social History Tobacco Use Types Packs/Day Years Used Date Smoking Tobacco: Never Smokeless Tobacco: Never Alcohol Use Standard Drinks/Week Comments Never 0 (1 standard drink = 0.6 oz pur e alcohol) [facility] Utilities Answer Date Recorded In the past 12 months has [employer], gas, oil, or water [employer] threatened to shut off services in your [...] and heating? Not hard at all 05/28/2024 [facility] of Occupat ional Health - Occupational [...] Info) Description 09/09/2024 9:30 AM EDT Routine [facility] OBGYN [address] [place] [address] Jacey Mathews, FOUNDRY PROCESS ENGINEER 1700 [facility] [address] [place] [address] 09/09/2024 9:30 AM EDT Ancillary Procedure [facility] OBGYN [address] [place] [address] 01/20/2025 3:30 PM EST Office Visit [facility] [address] [facility] [address] [place] [address] oRbbin Escalante MD [address]20 [facility] [address] [place] [address] Scheduled Orders Name Type Priority Associated Diagnoses Orde r Schedule Basic Metabolic Panel Lab Routine History of hypokalemia Expected: 09/01/2024 (Approximate), Expires: 11/27/2025 documented as of this encounter Visit Diagnoses Diagnosis History of hypokalemia- Primary documented in this encounter Additional Health Concerns Assessment Noted Time PHQ-2 Depression Total Score: 2 05/28/19 4:39 PM EDT documented as of this encounter Care Teams Guest Service Host Relationship Specialty Start Date End Date Norma Friedman APRN [facility] [place] [address] [place] [address] PCP - General Family Medicine 05/14/24 documented as of this encounter
--- OUTSIDE RECORDS SUMMARY | 2024-09-07 17:59 | XMS_ITS | Encounter Summary ---
Author Organization [employer] ([place], [place], [place], [place]) Address [address] [place] [address] Care Team Providers Care Sales Representative Door To Door Name Role Phone Unavailable Primary Care Provider Unavailabl e Encounter Details Date Type Department Care Team (Late st Contact Info) Description 07/17/[address] [facility] [place] [address] [place] [address] ProviderEleno MD [address], [place] [id number] Social History Tobacco Use Types Packs/Day Years [...] On: 07/17/2019 19:17 EDT by KARLENE MCKINLEY outside salesperson Process Patient Disposition : AMA/Elope/LWBS KARLENE MCKINLEY [...]
--- OUTSIDE RECORDS SUMMARY | 2024-09-07 17:59 | XMS_ITS | Clinical Summary ---
Author Organization [facility] Address [address] [place] [address] Care Team Providers Care Clerk Supervisor Name Role Phone Norma Friedman APRN Primary Care Provider + [phone] Allergies Active Allergy Reactions Criticality Noted Date [...] Department Care Team Description 5 Results Follow-Up [facility] [address] [place] [address] Rob Wharton MD 5 Telephone [facility] [address] [facility] [address] [place] [address] Rob Wharton MD 5 10:00 AM EDT Routine [facility] [address] [place] [address] Rob Wharton MD GA: 26w4d 5 Travel 5 Telephone [facility] [address] [facility] [address] [place] [address] Rob Wharton MD 5 Telephone [facility] [address] [place] [address] Rob Wharton MD 5 1:44 PM EDT Anesthesia Event [facility] END[facility] SUIT[facility] [address] [place] [address] Akash Anguiano MD Lanham, John, CRNA 5 1:33 PM EDT - 5 2:05 PM EDT Surgery [facility] [address] [place] [address] Blu Alvarado MD ESOPHAGOGASTRODUODENOSCOPY [29609 (CPT )] 5 1:59 PM EDT - 5 4:28 PM EDT Hospital Encounter [facility] ANTEPARTUM [address] [place] [address] Rob Wharton MD Brunner, Mark I, MD Dysphagia, unspecified type (Primary Dx) Discharge Disposition: Home or Self Care 5 10:15 AM EDT Routine [facility] [address] [place] [address] Jacey Mathews, PLEXIGLAS FORMER GA: 25w1d 5 Telephone [facility] [address] [place] [address] Jacey Mtahews, PLEXIGLAS FORMER 5 Travel 5 Patient Outreach [facility] LABOR DELIVERY [address] [place] [address] Christy Zabala RN 5 9:10 AM EDT Routine [facility] [address] [facility] [address] [place] [address] Rob Wharton MD GA: 21w1d 5 8:00 AM EDT Office Visit [facility] MATERNAL MEDICINE [address] [facility] [address] [place] [address] Sebastian Larsen MD History of prior with small for gestational age (Primary Dx) 5 7:44 AM EDT - 5 11:59 PM EDT Hospital Encounter [facility] US PER DIAG CTR [address] [place] [address] Kelly Delgado, PLEXIGLAS FORMER care, antepartum, unspecified ; High risk due to history of labor, antepartum; History of prior with small for gestational age Discharge Disposition: Home or Self Care 5 Travel 5 Results Follow-Up [facility] [address] [facility] [address] [place] [address] Kelly Delgado, JOLENE 5 10:10 AM EDT Routine [facility] [address] [facility] [address] [place] [address] Kelly Delgado, PLEXIGLAS FORMER GA: 18w5d 5 9:30 AM EDT Ancillary Procedure [facility] [address] [facility] [address] [place] [id number] care in second trimester, unspecified 5 Travel 5 Telephone [facility] [address] [facility] [address] [place] [address] Uriel Russ MD TRANSFER OF CARE REQ 5 10:15 PM EDT - 5 11:59 PM EDT Hospital Encounter [facility] DELIVERY [address] [place] [id number] Rob Wharton MD Mirsky, Elizabeth, MD Discharge Disposition: Home or Self Care 5 Travel 5 Telephone [facility] [address] [facility] [address] [place] [address] Uriel Russ MD [facility], OB 5 Telephone [facility] [address] [place] [address] Uriel Russ MD [facility] 5 [facility] [address] [place] [address] E-VisitToni MD 5 Results Follow-Up [facility] [address] [place] [address] Uriel Russ MD 5 3:20 PM EDT Routine [facility] [address] [place] [address] Uriel Russ MD GA: 17w2d 5 3:00 PM EDT Ancillary Procedure [facility] [address] [place] [address] Bleeding in early (Primary Dx) 5 Travel 5 Telephone [facility] [address] [place] [address] Uriel Russ MD 5 9:40 AM EDT Routine [facility] [address] [place] [address] Uriel Russ MD GA: 15w2d 5 Travel [...] pur e alcohol) [facility] Utilities Answer Date Recorded In the past 12 months has [employer], gas, oil, or water cloud[employer] threatened to shut off services in your [...] Not hard at all 05/28/2024 [facility] of Occupat ional Health - Occupational Stress [...] GED or equivalent No 05/28/2024 Preferred Language Sri Lankan 05/28/2024 PHQ-2 Answer Date Recorded Patient Health [...] AM EDT Routine [facility] [place] [address] Jacey Mathews, PLEXIGLAS FORMER [address] [facility] [address] [place], [place] [id number] 09/09/2024 9:30 AM EDT Ancillary Procedure [facility] [address] [place] [address] 01/20/2025 3:30 PM EST Office Visit [facility] GASTROENTEROLOGY [address] [address] Robbin Escalante MD [address] [facility] [address] [place] [address] Health Maintenance Due Date Last Done Comments Annual Gynecologic Pelvic and Breast Exam 1990 PAP SMEAR 2012 COVID-19 Vaccine ( - season) 2023 05/04/2022 ANNUAL PHYSICAL 05/21/2024 RSV [...] 08/20/2024 1:55 PM EDT Dysphagia, unspecified type VT ESOPHAGOGASTRODUODENOSCOP Y TRANSORAL DIAGNOSTIC 08/20/2024 1:44 PM [...] 10:02 AM EDT Multigravida in second trimester [facility] [place] Routine 07/22/2024 9:10 AM EDT care, antepartum, [...] 11:0 5 AM EDT 08/29/2024 Narrative [facility] (AMBULATORY) - 08/30/2024 6:09 AM EDT Performed at: [address] [place] [address] [id number] Safety Investigator: Kevin Harman MD, Phone: [phone] Patient Fasting: N Rob Wharton MD LAB BLOOD ORDERABLES Final Result [facility] (AMBULATORY) [address] [place] [address], [place] [phone] [facility] [address] [place] [address], [place] [phone] * (ABNORMAL) Comprehensive Metabolic Panel (08/29/2024 11:05 AM EDT) Only the most recent of4 resultswithin the time period is included. [facility] Glucose 72 65 - 99 mg/dL [facility] [...] - 08/30/2024 6:09 AM EDT Performed at: [address] [place] [address] [id number] Safety Investigator: Kevin Harman MD, Phone: [phone] Patient Fasting: N us Rob Wharton MD LAB BLOOD ORDERABLES Final Result [facility] (AMBULATORY) [address] [place] [address], [place] [phone] [facility] [address] [place] [address], * (ABNORMAL) POC Urinalysis Dipstick (08/29/2024 10:13 AM EDT) Only the most recent of5 resultswithin the time period is included. Glucose, UA Negative Negative mg/dL [facility] Protein, POC Trace(A) Negative mg/dL [facility] Urine 08/29/2024 10:1 3 AM EDT Rob Wharton MD POINT OF CARE TEST OR DERABLES Final Result [facility]
[address] [place] [address], [place] [phone] * BH AN ETT AIRWAY (08/20/2024 2:02 [...] EDT) Case Report Surgical Pathology Report Case: [id number] Authorizing Provider: Blu Alvarado MD Collected: 08/20/2024 01:55 PM Ordering Location: [facility] Received: 08/20/2024 02:14 PM ENDO SUITES Pathologist: Khalida Rhoades DO Specimen: Gastric, Antrum, antrum bx for path 08/22/2024 9:18 AM EDT [facility] Clinical Information Dysphagia, unspecified type 08/22/2024 9:18 AM EDT [facility] Final Diagnosis Stomach, antrum, biopsy: 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 pylori is negative (no organisms are identified) Negative for intestinal metaplasia, dysplasia, or malignancy 08/22/2024 9:18 AM EDT [facility] at 0918 EDT Gross Description 1. Gastric, Antrum. Received in formalin labeled antrum biopsy is a 0.4 x 0.2 x 0.2 cm pink-see soft tissue fragment submitted entirely in a single cassette. HDM 08/22/2024 9:18 AM EDT [facility] Microscopic Description The slides are reviewed and demonstrate histopathologic features supporting the above rendered diagnosis. 08/22/2024 9:18 AM EDT [facility] Tissue Pyloric antrum structure / Unknown 08/20/2024 1:55 PM EDT 08/20/2024 2:14 PM EDT us Blu Alvarado MD PATHOLOGY/CYTOLOGY ORDERABLES Final Result [facility]
[address] [place] [address], * Upper GI Endoscopy (08/20/2024 1:09 PM EDT) us Blu Alvarado MD INTERFACE NEEDS Final Result * (ABNORMAL) Basic Metabolic Panel (08/20/2024 5:25 AM EDT) Glucose 84 65 - 99 mg/dL 08/20/2024 6:13 AM EDT [facility] BUN 2.3(L) 6.0 - 20.0 mg/dL 08/20/2024 6:13 AM EDT [facility] Creatinine 0.51(L) 0.57 - 1.00 mg/dL 08/20/2024 6:13 AM EDT [facility] Sodium 139 136 - 145 mmol/L 08/20/2024 6:13 AM EDT [facility] Potassium 3.5 3.5 - 5.2 mmol/L 08/20/2024 6:13 AM EDT [facility] Chloride 109(H) 98 - 107 mmol/L 08/20/2024 6:13 AM EDT [facility] CO2 23.5 22.0 - 29.0 mmol/L 08/20/2024 6:13 AM EDT [facility] Calcium 7.8(L) 8.6 - 10.5 mg/dL 08/20/2024 6:13 AM EDT [facility] BUN/Creatinine Ratio 4.5(L) 7.0 - 25.0 08/20/2024 6:13 AM EDT [facility] Anion Gap 6.5 5.0 - 15.0 mmol/L 08/20/2024 6:13 AM T [facility] eGFR 126.6 >60.0 mL/min/1.7 3 08/20/2024 6:13 AM T [facility] Blood Venipuncture / Unknown 08/20/2024 5:25 AM EDT 08/20/2024 5:46 AM EDT [facility] LABORATORY - 08/20/2024 [...] ORDERABLES Final Resu lt Performing Organization Address [facility] Co de Phone Number [facility]
[address] [place] [address], * (ABNORMAL) Potassium (08/19/2024 8:53 PM EDT) Potassium 2.7(L) 3.5 - 5.2 mmol/L 08/19/2024 9:20 PM EDT [facility] Blood Venipuncture / Unknown 08/19/2024 8:53 PM EDT 08/19/2024 9:04 PM EDT Kt Fan DO LAB BLOOD ORDERABLES Final Result Performing Organization Address [facility] de Phone Number [facility]
[address] [place] [address], * ABO RH Specimen Verification (08/19/2024 4:34 PM EDT) ABO Type O 08/19/2024 7:39 PM EDT [facility] LABORAT[facility] RH type Positive 08/19/2024 7:39 PM EDT [facility] Blood Venipuncture / Unknown 08/19/2024 4:34 PM EDT 08/19/2024 4:53 PM EDT Rob Wharton MD BLOOD BANK TEST ORDER FRANCO Final Result Performing Organization Address [facility] Co de Phone Number [facility] LABORATORY
[address] [place] [address], * [facility] (08/19/2024 3:25 PM EDT) Only the most recent of2 resultswithin the time period is included. Anatomical Region Laterality Modality Ultrasound 08/19/2024 3:09 PM EDT Narrative 08/19/2024 4:54 PM EDT PAT NAME: CAROLE GIRARD MED REC#: [id number] DA: [id number] PAT GEND: F PAT TYPE: E EXAM TRAVIS: [id number] REF PHYS ROB WHARTON Comparison Studies The [...] EFW (oz) 9 oz EFW by: Hadlock ([id number]) Extended Cav. septi pel. tr 4.7 mm Geological E Logger 3.8 mm CM 7.5 mm 84% Nicolaides [...] Heart / Thorax 3-vessel view: Appears normal 8-lheqjo-gqydgau view: Appears normal Stomach: Appears normal Kidneys: [...] in 4wks for growth. Coding ======= Description: 39396-24 Follow Up Mammography Technologist: RT Annetta Hartmann , [facility] Physician: Jo Chappell MD Electronically signed by: Jo Chappell MD at: 16:54 Procedure Note Jo Chappell MD - 08/19/2024 PAT NAME: CAROLE GIRARD MED REC#: [id number] DA: [id number] PAT GEND: F PAT TYPE: E EXAM TRAVIS: [id number] REF PHYS ROB WHARTON Comparison Studies The findings of this study are compared to the prior ultrasound studydated 07/22/24 Patient Status Inpatient Indication ======== History of c/s x1. History of . Vaginal bleeding. Maternal Assessment Vbxogq987 cm Height (ft)5 ft Height (in)4 in Otmtxx73 kg Weight (lb)158 lb BMI27.31 kg/m Method ======= Transabdominal ultrasound examination. View: Limited by patient bodyhabitus ========= Love . Number of fetuses: 1 Dating ====== Method of dating:based on stated DUSTY GA by prior [id number] w + 1 d DUSTY by prior assessment:12/01/2024 Ultrasound examination on:08/19/2024 GA by U/S based upon:AC, BPD, Femur, HC GA by U/S24 w + 2 d DUSTY by U/S:12/07/2024 Previous dating:based on stated DUSTY, selected on 07/22/2024 Agreed DUSTY of previous datin12/01/2024 Assigned:based on stated DUSTY, selected on 08/19/2024 Assigned GA25 w + 1 d Assigned DUSTY:12/01/2024 [id number] d Biometry Standard BPD57.6 mm 23w 4d 5% Hadlock OFD81.6 mm 26w 4d 88% Jamal HC225.7 mm 24w 4d 13% Hadlock Cerebellum tr28.9 mm 25w 2d 62% Hill AC194.9 mm 24w 1d 15% Hadlock Femur44.9 mm 24w 6d 27% Hadlock Fpwpwdf68.3 mm 25w 3d 50% Jamal HC / AC1.16 IYV159 g 24w 2d 16% Hadlock EFW (lb)1 lb EFW (oz)9 oz EFW by:Hadlock ([id number]) Extended Cav. septi pel. tr4.7 mm Vp3.8 mm CM7.5 mm 84% Nicolaides Head / Face / Neck Cephalic index0.71 <1% Nicolaides Extremities / Bony Struc FL / BPD0.78 FL / HC0.20 FL / AC0.23 Other Structures [id number] bpm General Evaluation Cardiac activity present. FHR [...] normal Heart / Thorax 3-vessel view:Appears normal 1-pkudbw-hohtvwv view:Appears normal Stomach:Appears normal Kidneys:Appears normal Bladder:Appears [...] office in 4wks for growth. Coding ======= Description:77661-44 Follow Up Mammography Technologist: RT Annetta Hartmann , [facility] Physician: Jo Chappell MD Electronically signed by: Jo Chappell MD at: 16:54 us Kt Fan DO IMG US ORDERABLES Final Res ult * Urinalysis, Microscopic Only - Urine, Clean Catch (08/19/2024 3:02 PM EDT) Only the most recent of2 resultswithin the time period is included. RBC, UA 0-2 None Seen, 0-2 /HPF 08/19/2024 3:33 PM EDT [facility] WBC, UA 0-2 None Seen, 0-2 /HPF 08/19/2024 3:33 PM EDT [facility] Bacteria, UA None Seen None Seen /HPF 08/19/2024 3:33 PM EDT [facility] Squamous Epithelial Cells, UA 0-2 None Seen, 0-2 /HPF 08/19/2024 3:33 PM EDT [facility] Hyaline Casts, UA None Seen None Seen /LPF 08/19/2024 3:33 PM EDT [facility] Methodology Automated Microscopy 08/19/2024 3:33 PM EDT [facility] Urine Urine specimen obtained by clean catch procedure / Unknown Collection / Unknown 08/19/2024 3:02 PM EDT 08/19/2024 3:13 PM EDT Kt Fan DO URINE ORDERABLES Final Resu lt [facility]
[address] [place] [address], * (ABNORMAL) Urinalysis With Microscopic If Indicated (No Culture) - Urine, Clean Catch (08/19/2024 3:02 PM EDT) Only the most recent of2 resultswithin the time period is included. Color, UA Yellow Yellow, Straw 08/19/2024 3:33 PM EDT [facility] Appearance, UA Clear Clear 08/19/2024 3:33 PM EDT [facility] pH, UA >=9.0(H) 5.0 - 8.0 08/19/2024 3:33 PM EDT [facility] Specific [place], UA 1.018 1.005 - 1.030 08/19/2024 3:33 PM EDT [facility] Glucose, UA Negative Negative 08/19/2024 3:33 PM EDT [facility] Ketones, UA 15 mg/dL (1+)(A) Negative 08/19/2024 3:33 PM EDT [facility] Bilirubin, UA Negative Negative 08/19/2024 3:33 PM EDT [facility] Blood, UA Negative Negative 08/19/2024 3:33 PM EDT [facility] Protein, UA 30 mg/dL (1+)(A) Negative 08/19/2024 3:33 PM EDT [facility] Leuk Esterase, UA Negative Negative 08/19/2024 3:33 PM EDT [facility] Nitrite, UA Negative Negative 08/19/2024 3:33 PM EDT [facility] Urobilinogen, UA 1.0 E.U./dL 0.2 - 1.0 E.U./dL 08/19/2024 3:33 PM EDT [facility] Urine Urine specimen obtained by clean catch procedure / Unknown Collection / Unknown 08/19/2024 3:02 PM EDT 08/19/2024 3:13 PM EDT Kt Fan DO URINE ORDERABLES Final Resu lt [facility]
[address] [place] [address], * (ABNORMAL) CBC Auto Differential (08/19/2024 3:02 PM EDT) WBC 9.19 3.40 - 10.80 10*3/mm3 08/19/2024 3:23 PM EDT [facility] RBC 3.58(L) 3.77 - 5.28 10*6/mm3 08/19/2024 3:23 PM EDT [facility] Hemoglobin 10.5(L) 12.0 - 15.9 g/dL 08/19/2024 3:23 PM EDT [facility] Hematocrit 31.4(L) 34.0 - 46.6 % 08/19/2024 3:23 PM EDT [facility] MCV 87.7 79.0 - 97.0 fL 08/19/2024 3:23 PM EDT [facility] MCH 29.3 26.6 - 33.0 pg 08/19/2024 3:23 PM EDT [facility] MCHC 33.4 31.5 - 35.7 g/dL 08/19/2024 3:23 PM EDT [facility] RDW 13.4 12.3 - 15.4 % 08/19/2024 3:23 PM EDT [facility] RDW-SD 42.4 37.0 - 54.0 fl 08/19/2024 3:23 PM EDT [facility] MPV 12.0 6.0 - 12.0 fL 08/19/2024 3:23 PM EDT [facility] Platelets 241 140 - 450 10*3/mm3 08/19/2024 3:23 PM EDT [facility] Neutrophil % 66.8 42.7 - 76.0 % 08/19/2024 3:23 PM EDT [facility] Lymphocyte % 24.4 19.6 - 45.3 % 08/19/2024 3:23 PM EDT [facility] Monocyte % 7.6 5.0 - 12.0 % 08/19/2024 3:23 PM EDT [facility] Eosinophil % 0.7 0.3 - 6.2 % 08/19/2024 3:23 PM EDT [facility] Basophil % 0.2 0.0 - 1.5 % 08/19/2024 3:23 PM EDT [facility] Immature Grans % 0.3 0.0 - 0.5 % 08/19/2024 3:23 PM EDT [facility] Neutrophils, Absolute 6.14 1.70 - 7.00 10*3/mm3 08/19/2024 3:23 PM EDT [facility] Lymphocytes, Absolute 2.24 0.70 - 3.10 10*3/mm3 08/19/2024 3:23 PM EDT [facility] Monocytes, Absolute 0.70 0.10 - 0.90 10*3/mm3 08/19/2024 3:23 PM EDT [facility] Eosinophils, Absolute 0.06 0.00 - 0.40 10*3/mm3 08/19/2024 3:23 PM EDT [facility] Basophils, Absolute 0.02 0.00 - 0.20 10*3/mm3 08/19/2024 3:23 PM EDT [facility] Immature Grans, Absolute 0.03 0.00 - 0.05 10*3/mm3 08/19/2024 3:23 PM EDT [facility] nRBC 0.0 0.0 - 0.2 /100 WBC 08/19/2024 3:23 PM EDT [facility] Blood Line / Unknown 08/19/2024 3: 02 PM EDT 08/19/2024 3:10 PM EDT Kt Fan DO LAB BLOOD ORDERABLES Final Result [facility]
[address] [place] [address], * Protein / Creatinine Ratio, Urine - Urine, Clean Catch (08/19/2024 3:02 PM EDT) Protein/Creati nine Ratio, Urine 126.1 0.0 - 200.0 mg/G Crea 08/20/2024 12:47 AM EDT [facility] Creatinine, Urine 148.3 mg/dL 08/20/2024 12:47 AM EDT [facility] Total Protein, Urine 18.7 mg/dL 08/20/2024 12:47 AM EDT [facility] Urine Urine specimen obtained by clean catch procedure / Unknown Collection / Unknown 08/19/2024 3:02 PM EDT 08/19/2024 4:26 PM EDT Kt Fan DO URINE ORDERABLES Final Resu lt [facility]
[address] [place] [address], * Type & Screen (08/19/2024 3:02 PM EDT) ABO Type O 08/19/2024 3:51 PM EDT [facility] RH type Positive 08/19/2024 3:51 PM EDT [facility] Antibody Screen Negative 08/19/2024 3:51 PM EDT [facility] T&S Expiration Date 08/22/2024 11:59:59 PM 08/19/2024 3:51 PM EDT [facility] Blood Line / Unknown 08/19/2024 3: 02 PM EDT 08/19/2024 3:15 PM EDT Kt Fan DO BLOOD BANK TEST ORDERABLES Edited Result - Final Performing Organization Address [facility]/ZIP Co de Phone Number [facility]
[address] [place] [address], * (ABNORMAL) Magnesium (08/19/2024 3:02 PM EDT) Magnesium 1.5(L) 1.6 - 2.6 mg/dL 08/19/2024 5:12 PM EDT [facility] Blood Line / Unknown 08/19/2024 3: 02 PM EDT 08/19/2024 3:10 PM EDT us Kt Fan DO LAB BLOOD ORDERABLES Final Result [facility]
[address] [place] [address], [place] [phone] * Lipase (08/19/2024 3:02 PM EDT) Lipase 13 13 - 60 U/L 08/19/2024 3:36 PM EDT [facility] Blood Line / Unknown 08/19/2024 3: 02 PM EDT 08/19/2024 3:10 PM EDT us Kt Fan DO LAB BLOOD ORDERABLES Final Result Performing Organization Address City/[facility]/ZIP Co de Phone Number [facility]
[address] [place] [address], [place] [phone] * Amylase (08/19/2024 3:02 PM EDT) Amylase 73 28 - 100 U/L 08/19/2024 3:36 PM EDT [facility] Blood Line / Unknown 08/19/2024 3: 02 PM EDT 08/19/2024 3:10 PM EDT us Kt Fan DO LAB BLOOD ORDERABLES Final Result Performing Organization Address [facility] de Phone Number [facility]
[address] [place] [address], [place] [phone] * US Ob 14 + Weeks Single or First Gestation (07/05/2024 10:17 AM EDT) Anatomical Region Laterality Modality Body Ultrasound 07/05/2024 10:2 8 AM EDT Narrative 07/09/2024 7:02 PM EDT PAT NAME: CAROLE GIRARD MED REC#: [id number] DA: 1990 PAT GEND: F PAT TYPE: O EXAM TRAVIS: [id number] REF PHYS URIEL RUSS Physician Liaison Comments Still need heart views and PCI [...] EFW (oz) 9 oz EFW by: Hadlock ([id number]) Extended Geological E Logger 6.4 mm CM 3.3 mm 11% Nicolaides [...] Heart / Thorax 3-vessel view: not visualized 4-mjbwgp-hqztrtm view: not visualized Diaphragm: Appears normal Diaphragm: [...] subsequent visit to complete the anatomic screening. Physician Liaison: Soo Harding RDMS Physician: Uriel Russ II, MD, FACOG Electronically signed by: Uriel Russ II, MD, FACOG at: 19:02 Procedure Note Uriel Russ MD - 07/09/2024 PAT NAME: CAROLE GIRARD MED REC#: [id number] DA: 1990 PAT GEND: F PAT TYPE: O EXAM TRAVIS: [id number] REF PHYS URIEL RUSS Physician Liaison Comments Still need heart views and PCI N/L, Kidneys, Legs suboptimal Indication ======== anatomy survey Comparison Studies There are no relevant prior studies to which this study is beingcompared Method ======= [place] E6, Transabdominal ultrasound examination. View: Suboptimal view:limited by early gestational age ========= Love . Number of fetuses: 1 Dating ====== Method of dating:based on stated DUSTY GA by prior w + 5 d DUSTY by prior assessment:12/01/2024 Ultrasound examination on:07/05/2024 GA by U/S based upon:AC, BPD, Femur, HC GA by U/S18 w + 3 d DUSTY by U/S:12/03/2024 Previous dating:based on stated DUSTY, selected on 06/25/2024 Agreed DUSTY of previous datin12/01/2024 Assigned:based on stated DUSTY, selected on 07/05/2024 Assigned GA18 w + 5 d Assigned DUSTY:12/01/2024 d General Evaluation Cardiac [...] 67% Hadlock HC / AC1.13 20% Hadlock ABS269 g 18w 6d 56% Hadlock EFW (lb)0 lb EFW (oz)9 oz EFW by:Hadlock ([id number]) Extended Vp6.4 mm CM3.3 mm 11% Nicolaides Extremities / Bony Struc FL / BPD0.80 >99% Hadlock FL / HC0.20 98% Hadlock FL / AC0.23 89% Hadlock Other Structures [id number] bpm Anatomy Cranium:Appears normal Lateral ventricles:Appears normal Choroid plexus:Appears normal Midline falx:Appears normal Cavum septi pellucidi:Appears normal Cerebellum:Appears normal Cisterna magna:Appears normal Lips:suboptimal Profile:Appears normal Nose:suboptimal 4-chamber view:not visualized RVOT view:not visualized LVOT view:not visualized Heart / Thorax 3-vessel view:not visualized 5-izcbkp-nsbfkxj view:not visualized Diaphragm:Appears normal Diaphragm:Intact Cord insertion:Appears [...] Structures Uterus / Cervix Uterus:Visualized Cervix:Visualized Cervical .6 mm Ovaries / Tubes / [...] a subsequent visit tocomplete the anatomic screening. Physician Liaison: Soo Harding RDMS Physician: Uriel Russ II, MD, FACOG Electronically signed by: Uriel Russ II, MD, FACOG at: 0319:02 us Uriel Russ MD [facility] US ORDERABLES Final Result * Urine Culture - [...] / Unknown 07/05/2024 07/05/2024 Comment:Urine Release to [facility] (AMBULATORY) - 07/07/2024 3:35 AM EDT Performed at: Lab[address] [id number] Safety Investigator: Michael Martinez PhD, Phone: [phone] Kelly Delgado APRN MICROBIOLOGY - GENERAL ORDER FRANCO Final Result Performing Organization Address City/[facility]/ZIP Co de Phone Number [facility] ([facility] [address] [place] [address], [facility] [address] [place] [address], * Tryptase (06/25/2024 4:34 PM EDT) Tryptase 6.1 2.2 - 13.2 ug/L [facility] Blood 06/25/2024 4:34 PM EDT 06/25/2024 Narrative [facility] (AMBULATORY) - 06/28/2024 9:10 AM EDT Performed at: [address] [id number] Safety Investigator: Fang Yu MD, Phone: [phone] Uriel Russ MD LAB BLOOD ORDERABLES Final Resu lt Performing Organization Address City/[facility]/ZIP Co de Phone Number [facility] [address] [place] [address], [facility] [address] [place] [address], * Vitamin D,25-Hydroxy (06/25/2024 4:34 PM EDT) 25 Hydroxy, Vitamin D 33.7 30.0 - 100.0 ng/mL [facility] Comment: Vitamin D deficiency has been defined by the [place] of Medicine and an Endocrine Society practice guideline as a level of serum 25-OH vitamin D less than 20 ng/mL (1,2). The Endocrine Society went on to further define vitamin D insufficiency as a level between 21 and 29 ng/mL (2). 1. IOM ([place] of Medicine). 2010. Dietary reference intakes for calcium and D. [place]: The National Academies Press. 2. Halle MF, [place] MEHTA, Wade MITCHELL, et al. Evaluation, treatment, and prevention of vitamin D deficiency: an Endocrine Society clinical practice guideline. JCEM. 2010; 96(7):1911-30. Blood 06/25/2024 4:34 PM EDT 06/25/2024 Narrative [facility] (AMBULATORY) - 06/26/2024 7:37 AM EDT Performed at: 01 - [address] [id number] Safety Investigator: Michael Martinez PhD, Phone: [phone] Uriel Russ MD LAB BLOOD ORDERABLES Final Resu lt [facility] (AMBUL[facility]ORY) [address] [place] [address], [facility] [address] [place] [address], * TSH (06/25/2024 4:34 PM EDT) TSH 0.593 0.450 - 4.500 uIU/mL [facility] Blood 06/25/2024 4:34 PM EDT 06/25/2024 Narrative [facility] (AMBULATORY) - 06/26/2024 7:37 AM EDT Performed at: - [facility] [address] [place], [place] [id number] Safety Investigator: Michael Martinez PhD, Phone: [phone] us Uriel Russ MD LAB BLOOD ORDERABLES Final Resu lt Performing Organization Address [facility] Co de Phone Number [facility] [address] [place] [address], [facility] [address] [place] [address], * T4, Free (06/25/2024 4:34 PM EDT) Free T4 1.09 0.82 - 1.77 ng/dL [facility] Blood 06/25/2024 4:34 PM EDT 06/25/2024 Narrative [facility] (AMBULATORY) - 06/26/2024 7:37 AM EDT Performed at: - [address] [id number] Safety Investigator: Michael Martinez PhD, Phone: [phone] us Uriel Russ MD LAB BLOOD ORDERABLES Final Resu lt Performing Organization Address [facility] Co de Phone Number [facility] [address] [place] [address], [facility] [address] [place] [address], * (ABNORMAL) Hemoglobin A1c (06/25/2024 4:34 PM EDT) Hemoglobin A1C 4.7(L) 4.8 - 5.6 % [facility] Comment: Prediabetes: 5.7 - 6.4 Diabetes: >6.4 Glycemic control for adults with diabetes: <7.0 Blood 06/25/2024 4:34 PM EDT 06/25/2024 Narrative [facility] (AMBULATORY) - 06/26/2024 4:35 AM EDT Performed at: 01 - [facility] [address] [place], [place] [id number] Safety Investigator: Michael Martinez PhD, Phone: [phone] Uriel Russ MD LAB BLOOD ORDERABLES Final Resu lt Performing Organization Address City/[facility]/ZIP Co de Phone Number [facility] [address] [place] [address], [place] [phone] [facility] [address] [place] [address], * (ABNORMAL) Lipid Panel (06/25/2024 4:34 PM EDT) [facility] Total Cholesterol 203(H) 100 - 199 mg/dL [facility] Triglycerides 125 0 - 149 mg/dL [facility] HDL Cholesterol 52 >39 mg/dL [facility] VLDL Cholesterol Rom 22 5 - 40 mg/dL [facility] LDL Chol Calc (NIH) 129(H) 0 - 99 mg/dL [facility] Blood 06/25/2024 4:34 PM EDT 06/25/2024 Narrative [facility] (AMBULATORY) - 06/26/2024 6:36 AM EDT Performed at: - [facility] [address] [place], [place] [id number] Safety Investigator: Michael Martinez PhD, Phone: [phone] Uriel Russ MD LAB BLOOD ORDERABLES Final Resu lt Performing Organization Address City/[facility]/ZIP Co de Phone Number [facility] [address] [place] [address], [place] [phone] [facility] [address] [place] [address], * US Ob Limited 1 + Fetuses (06/25/2024 3:10 PM EDT) Anatomical Region Laterality Modality Body Ultrasound 06/25/2024 3:54 PM EDT Narrative 06/26/2024 1:34 PM EDT PAT NAME: CAROLE GIRARD [facility] REC#: [id number] DA: 1990 PAT GEND: F PAT TYPE: O EXAM TRAVIS: [id number] REF PHYS JEBURIEL Quarles Indication ======== Heart Tones Comparison Studies The [...] clinically indicated for the condition being monitored. Physician Liaison: RT Annetta Bruno, [facility] Physician: Uriel Russ II, MD, FACOG Electronically signed by: Uriel Russ II, MD, FACOG at: 13:34 Procedure Note Uriel Russ MD - 06/26/2024 PAT NAME: CAROLE GIRARD MED REC#: [id number] DA: [id number] PAT GEND: F PAT TYPE: O EXAM TRAVIS: [id number] REF PHYS URIEL RUSS Indication ======== Heart Tones Comparison Studies The findings of this study are compared to the prior ultrasound studydated 05/27/2024 Method ======= Transabdominal ultrasound examination. View: Suboptimal view: limited byfetal position ========= Love . Number of fetuses: 1 Dating ====== Method of dating:based on stated DUSTY GA by prior [id number] w + 2 d DUSTY by prior assessment:12/01/2024 Previous dating:based on stated DUSTY, selected on 05/27/2024 Agreed DUSTY of previous datin12/01/2024 Assigned:based on stated DUSTY, selected on 06/25/2024 Assigned GA17 w + 2 d Assigned DUSTY:12/01/2024 [id number] d General Evaluation Cardiac activity present. FHR 150 bpm. movements visualized. Presentation variable. Placenta Placental site: anterior. Amniotic fluid Amount of AF: normal. MVP 2.7 cm. Maternal Structures Uterus / Cervix Cervical gyitbf01.1 mm Impression heart tones 150. 17 weeks 2 days. EDC 12/01/2024. Single fetus.Cervical length 33 mm. Recommendation Follow-up scan as clinically indicated for the condition beingmonitored. Physician Liaison: RT Annetta Bruno, RDMO Physician: Uriel Russ II, MD, FACOG Electronically signed by: Uriel Russ II, MD, FACOG at: :34 us Uriel Russ MD [facility] US ORDERABLES Final Result * Hepatitis C Antibody (04/12/2024) Hep C Virus Ab negative Blood us Historical Provider LAB BLOOD ORDERABLES Lena l Result from Last 3 Months or Most Recently Relevant to Health Maintenance Insurance [employer]NA [facility] Care Teams Clerk Supervisor Relationship Specialty Start Date End Date Norma Friedman APRN [address] [place] [place] [address] PCP - General Family Medicine 05/14/24
--- OUTSIDE RECORDS SUMMARY | 2024-09-07 17:59 | XMS_ITS | Clinical Summary ---
Author Organization [facility] Address [place] [address] Phone Care Team Providers Care Principle Industrial Hygienist Name Role Phone Unavailable Primary Care Provider [...] migh t be different from the original. [facility] - Edwardo Ojeda MD Interventional Pain Protocol: NS Appt 03/29/22 Letter Sent Maxime report completed (EVERY 3 MONTHS) ( 03/23/22) Pharmacy: [facility] [address] [place] [address] - [address] [facility] south - [phone] No known active problems Social History Tobacco [...] patient's age to complete this topic Insurance Exchange Lab [facility] [address] * Guarantor: Whitney Zuniga Account Type Relation to Patient Date of Phone Billing Address SEP Personal Family Account Self 1990 [address] [id number] [facility] Exchange [facility] [address]
--- OUTSIDE RECORDS SUMMARY | 2024-09-07 17:59 | XMS_ITS | Encounter Summary ---
Author Organization Healthcare Address [address] [place] [place] [id number] Care Team Providers Care Director Clinical Applications Name Role Phone Unavailable Primary Care Provider Unavailabl e Reason for Referral * Consultation (Routine) - Authorized Specialty Diagnoses / Procedures Referred By Contac t Referred To Contact Nephrology Diagnoses History of proteinuria syndrome care, subsequent , second trimester Staci Jain MD [address] [address] Phone: tel: fax: [facility] Nephrology, Bone & Mineral Metabolism [address] [facility], [address] [place] [address] Phone: tel: fax: Referral ID Status Reason Start Date Expiration Date Visits Requested Visits Authorized [id number] Authorized Specialty Services Required 07/22/2024 01/21/2026 1 1 Encounter Details Date Type Department Care Team (Late st Contact Info) Description 07/22/2024 [facility] [address] [place] [address] Staci Jain MD [address] [place] [address] History of proteinuria syndrome (Primary Dx); care, [...]
--- OUTSIDE RECORDS SUMMARY | 2024-09-07 17:59 | XMS_ITS | Encounter Summary ---
[facility] Address [address] [place] [id number] Care Team Providers Care Energy Control Officer Name Role Phone IvyKade goldbergjoseseven JOLENE Primary Care Provider + [phone] Encounter Details Date Type Department Care Team (Late st Contact Info) Description 07/25/2024 Patient Outreach [facility] [address] [place] [address] Christy Zabala, RN Social History Tobacco Use Types Packs/Day Years Used Date Smoking Tobacco: Never Smokeless Tobacco: Never Alcohol Use Standard Drinks/Week Comments Never 0 (1 standard drink = 0.6 oz pur e alcohol) [facility] Utilities Answer Date Recorded [...] all 05/28/2024 [facility] [place] of Occupat ional Health - Occupational Stress [...] needs assessment and wellness check. Christy Wilson reuse technician Nurse Navigator 07/25/2024, 10:59 EDT documented in this encounter Plan of Treatment Upcoming Encounters Date Type Department Care Team (Late st Contact Info) Description 09/09/2024 9:30 AM EDT Routine [facility] [address] [place] [address] Jacey Mathews, RESIDENT MANAGER [address] [facility] [place] [address] [place] [address] 09/09/2024 9:30 AM EDT Ancillary Procedure [facility] [address] [place] [address] 01/20/2025 3:30 PM EST Office Visit [facility] GASTROENTEROLOGY [address] [facility] [address] [place] [address] Robbin Escalante MD [address] [facility] [address] [place] [address] documented as of this encounter Visit Diagnoses Not on filedocumented in this encounter Additional Health Concerns Assessment Noted Time PHQ-2 Depression Total Score: 2 05/28/19 4:39 PM EDT documented as of this encounter Care Teams Energy Control Officer Relationship Specialty Start Date End Date Norma Friedman, JOLENE [address] [place] [address] [place] [address] PCP - General Family Medicine 05/14/24 documented as of this encounter
--- OUTSIDE RECORDS SUMMARY | 2024-09-07 17:59 | XMS_ITS | Clinical Summary ---
Author Organization Healthcare Address [address] [place] [address] Care Team Providers Care Embedder Name Role Phone Unavailable Primary Care Provider Unavailabl e Encounters Date Type Department Care Team Description 07/22/2024 [facility] [address] [place] [address] Staci Jain MD History of proteinuria syndrome (Primary Dx); care, subsequent , second trimester 07/22/2024 [facility] [address] [place] [address] Sandy Cardenas MD from Last 3 Months [...] 2012 [facility]-Cervical Cancer Screening 2021 [facility]-HPV/Cotest 2021 [id number]-72 Vaccine (2 season) 2023 05/04/2022 [facility]-Influenza Vaccine [...] ORDERABLES Fin al Result Performing Organization Address City/[facility] de Phone Number SUNQUEST * Hepatitis C Antibody (01/22/2019 9:57 AM EST) Hepatitis C Antibody NEGATIVE Reference Range: Negative [facility] 01/22/2019 9:57 AM EST 01/22/2019 12:12 PM EST Pradip Damico APRN, CNM LAB BLOOD ORDERABLES Fin al Result Performing Organization Address City/[facility] de Phone Number [facility] from Last 3 Months or Most Recently Relevant to Health Maintenance Insurance AETNA [facility] MEDICAID
--- OUTSIDE RECORDS SUMMARY | 2024-09-07 17:59 | XMS_ITS | Clinical Summary ---
Author Organization [facility] Address [address] [place] [address] Care Team Providers Care Sock Folder Name Role Phone Unavailable Primary Care Provider Unavailabl e Source Comments [facility] is fully rolled out with thefollowing exceptions:General Clinical Research [facility] Social History Tobacco Use Types Packs/Day [...] of 3 - 19+ 3-dose series) 2010 HPV IMMUNIZATION (1 - 3-dose SCDM series) 2018 COVID-19 Vaccine (2023-2 5 season) 2023 AMB [...]
--- OUTSIDE RECORDS SUMMARY | 2024-09-07 17:59 | XMS_ITS | Encounter Summary ---
Author Organization [facility] Address [address] [place] [address] Care Team Providers Care Roller Cleaner Name Role Phone Elder Norma FERNÁNDEZ Primary Care Provider + [phone] Encounter Details Date Type Department Care Team (Latest Contact Info) Description 08/29/2024 Travel Social History Tobacco Use Types Packs/Day Years Used Date Smoking Tobacco: Never Smokeless Tobacco: Never Alcohol Use Standard Drinks/Week Comments Never 0 (1 standard drink = 0.6 oz pur e alcohol) [facility] Utilities Answer Date Recorded In the past 12 months has [employer] electric, gas, oil, or water company threatened [...] Not hard at all 05/28/2024 [facility] [place] of Occupat ional Health - Occupational Stress [...] [facility] [address] [place] [address] Jacey Mathews, LAMP SHADES SUPERVISOR [address] [facility] [address] [place] [address] 09/09/2024 9:30 AM EDT Ancillary Procedure [facility] [address] [place] [address] 01/20/2025 3:30 PM EST Office Visit [facility] GASTROENTEROLOGY [address] [facility] [address] [place] [address] Robbin Escalante MD [address] [facility] [address] [place] [address] documented as of this encounter Visit Diagnoses Not on filedocumented in this encounter Additional Health Concerns Assessment Noted Time PHQ-2 Depression Total Score: 2 05/28/19 25 4:39 PM EDT documented as of this encounter Care Teams Roller Cleaner Relationship Specialty Start Date End Date Norma Friedman APRN [address] [place] [address] [place] [address] PCP - General Family Medicine 05/14/24 documented as of this encounter
--- OUTSIDE RECORDS SUMMARY | 2024-09-07 17:59 | XMS_ITS ---
Author Organization [facility] Address [address] [place] [address] Care Team Providers Care Bacon De Rinder Name Role Phone Norma Friedman APRN Primary Care Provider Motherhood Connection Status:Engaged (Active) Start date:05/23/2024 Enrollment date:05/23/2024 Case Team Name Relationship Phone Bindu Castellon RN Nurse Navigator Christy Zabala RN(Responsible Staff) Nurse Navig ator Continued Care and Services Coordination
--- OUTSIDE RECORDS SUMMARY | 2024-09-07 17:59 | XMS_ITS | Encounter Summary ---
[facility] Organization [facility] Address [address] [place] [phone] Care Team Providers Care Customer Solutions Specialist Name Role Phone Elder Norma FERNÁNDEZ Primary Care Provider + [phone] Encounter Details Date Type Department Care Team (Late st Contact Info) Description 07/07/2024 Results Follow-Up [facility] [address] [place] [address] [place] [phone] Kelly Delgado APRN [address] [facility] [address] [place] [address] Social History Tobacco Use Types Packs/Day Years Used Date Smoking Tobacco: Never Smokeless Tobacco: Never Alcohol Use Standard Drinks/Week Comments Never 0 (1 standard drink = 0.6 oz pur e alcohol) [facility] Utilities Answer Date Recorded In the past 12 months has [employer], gas, oil, or water [employer] threatened to shut off services in your [...] and heating? Not hard at all 05/28/2024 [facility] of Occupat ional Health - Occupational [...] Routine [facility] [address] [place] [address] Jacey Mathews HSE ADVISOR [address] [facility] [address] [place] [address] 09/09/2024 9:30 AM EDT Ancillary Procedure [facility] [address] [place] [address] 01/20/2025 3:30 PM EST Office Visit [facility] GASTROENTEROLOGY 17[address] [facility] [address] [place] [address] Robbin Escalante MD [address] [facility] [address] [place] [address] documented as of this encounter Visit Diagnoses Not on filedocumented in this encounter Additional Health Concerns Assessment Noted Time PHQ-2 Depression Total Score: 2 05/28/19 25 4:39 PM EDT documented as of this encounter Care Teams Customer Solutions Specialist Relationship Specialty Start Date End Date Norma Friedman APRN [address] [place] [address] [place] [address] PCP - General Family Medicine 05/14/24 documented as of this encounter
--- OUTSIDE RECORDS SUMMARY | 2024-09-07 17:59 | XMS_ITS ---
Author Organization [facility] Address [address] [place] [address] Care Team Providers Care Corrections Officer Name Role Phone Unavailable Primary Care Provider Unavailabl e Transplant Episode Kidney Potential Donor [facility] ([place], [place]) [facility] Referred on 05/03/2022 Marked as Deferred on 05/04/2022 Reason: Other Kidney CoordinatorNadine Augustin R.N. Phone: N/A Fax: N/A Email: N/A Care Team Name Role Phone Fax Email Nadine Augustin R.N. Kidney Coordinator N/A N/A N/A Events Pre-Donation Referred: 05/03/2022
--- OUTSIDE RECORDS SUMMARY | 2024-09-07 17:59 | XMS_ITS | Referral Summary ---
Author Organization [employer] ([place], [place], [place], [place]) Address [address] [place] [address] Care Team Providers Care Tank Setter Name Role Phone Unavailable Primary Care [...]
--- OUTSIDE RECORDS SUMMARY | 2024-09-07 17:59 | XMS_ITS | Clinical Summary ---
Author Organization [employer] ([place], [place], [place], [place]) Address [address] [place] [address] Care Team Providers Care Umbrella Tipper Machine Name Role Phone Unavailable Primary Care Provider [...]
--- OUTSIDE RECORDS SUMMARY | 2024-09-07 18:00 | XMS_ITS | Encounter Summary ---
[facility] Organization [facility] Address [address] [place] [address] Care Team Providers Care Machine Tracer Name Role Phone Elder Norma FERNÁNDEZ Primary Care Provider + [phone] Encounter Details Date Type Department Care Team (Latest Contact Info) Description 08/19/2024 Travel Social History Tobacco Use Types Packs/Day Years Used Date Smoking Tobacco: Never Smokeless Tobacco: Never Alcohol Use Standard Drinks/Week Comments Never 0 (1 standard drink = 0.6 oz pur e alcohol) [facility] Utilities Answer Date Recorded In the past 12 months has [employer] electric, gas, oil, or water company threatened [...] and heating? Not hard at all 05/28/2024 [facility] [place] of Occupat ional Health - Occupational Stress [...] Month) No 025 2:34 PM EDT Nneka Cross, BRIT 2. Non-Specific Active Suici mike Thoughts (Past 1 Month) No 08/19/2024 2:34 PM EDT Lucy Cross RN * Calculated C-SSRS Risk Score (Lifetime/Recent) Answer Date of Assessment Author No Risk Indicated 08/19/2024 2:34 PM EDT Nneka Cross RN * [place] Suicide Severity Rating Scale (Screener/Recent Self-Report) Question Answer Date of Assessment Author 6. Suicidal Behavior (Lifetime) No 2:34 PM EDT Nneka Cross, BRIT documented as of this encounter Plan of Treatment Upcoming Encounters Date Type Department Care Team (Late st Contact Info) Description 09/09/2024 9:30 AM EDT Routine [facility] [address] [place] [address] Jacey Mathews, EXECUTIVE ASSISTANT TO GENERAL COUNSEL [address] [facility] [address] [place] [address] 09/09/2024 9:30 AM EDT Ancillary Procedure [facility] [address] [place] [address] 01/20/2025 3:30 PM EST Office Visit [facility] GASTROENTEROLOGY [address] [facility] [address] [place] [address] Robbin Escalante MD [address] [facility] [address] [place] [address] documented as of this encounter Visit Diagnoses Not on filedocumented in this encounter Additional Health Concerns Assessment Noted Time PHQ-2 Depression Total Score: 2 05/28/19 25 4:39 PM EDT documented as of this encounter Care Teams Machine Tracer Relationship Specialty Start Date End Date Norma Friedman APRN [address] [place] [address] [place] [address] PCP - General Family Medicine 05/14/24 documented as of this encounter
--- OUTSIDE RECORDS SUMMARY | 2024-09-07 18:00 | XMS_ITS | Encounter Summary ---
Author Organization [facility] [address] Address [address] [place] [id number] Care Team Providers Care Store Stocker Name Role Phone Ivyashlyn Valentinoseven JOLENE Primary Care Provider + [phone] Encounter Details Date Type Department Care Team (Late st Contact Info) Description 06/26/2024 Results Follow-Up [facility] OBGYN [address] [address] Koby Roberts MD 1700 [place] [address] Social History Tobacco Use Types Packs/Day Years Used Date Smoking Tobacco: Never Smokeless Tobacco: Never Alcohol Use Standard Drinks/Week Comments Never 0 (1 standard drink = 0.6 oz pur e alcohol) [facility] Utilities Answer Date Recorded In the past 12 months has [employer], gas, oil, or water [employer] threatened to shut off services in your [...] and heating? Not hard at all 05/28/2024 [facility] of Occupat ional Health - Occupational Stress [...] GED or equivalent No 05/28/2024 Preferred Language Montserratian 05/28/2024 PHQ-2 Answer Date Recorded Patient Health [...] EDT Routine [facility] OBGYN [address] [place] [address] Jacey Mathews CIRCULATION MANAGER 1700 [facility] 701 [place] [address] 09/09/2024 9:30 AM EDT Ancillary Procedure [facility] OBGYN [address] [place] [address] 01/20/2025 3:30 PM EST Office Visit [facility] GASTROENTEROLOGY 1720 [facility] 302 [place] [address] Robbin Escalante MD 1720 [facility] 302 [place] [address] documented as of this encounter Visit Diagnoses Not on filedocumented in this encounter Additional Health Concerns Assessment Noted Time PHQ-2 Depression Total Score: 2 05/28/19 25 4:39 PM EDT documented as of this encounter Care Teams Store Stocker Relationship Specialty Start Date End Date Norma Friedman APRN [address] [place] [place] [address] PCP - General Family Medicine 05/14/24 documented as of this encounter
--- OUTSIDE RECORDS SUMMARY | 2024-09-07 18:00 | XMS_ITS | Encounter Summary ---
[facility] Address [address] [place] [id number] Care Team Providers Care Hydrography Teacher Name Role Phone Ivyashlyn Norma FERNÁNDEZ Primary Care Provider + [phone] Encounter Details Date Type Department Care Team (Late st Contact Info) Description 08/28/2024 Telephone [facility] OBGYN [address] [address] Staci Jain MD 1700 [place] [id number] Social History Tobacco Use Types Packs/Day Years Used Date Smoking Tobacco: Never Smokeless Tobacco: Never Alcohol Use Standard Drinks/Week Comments Never 0 (1 standard drink = 0.6 oz pur e alcohol) [facility] Utilities Answer Date Recorded In the past 12 months has [employer], gas, oil, or water [employer] threatened to shut off services in your [...] and heating? Not hard at all 05/28/2024 [facility] of Occupat ional Health - Occupational [...] sit with a family member admitted to [facility] today and does not know if she can make it back for labs (BMP). She does have an appt in [facility] at 10 am tomorrow. Advisedthat it [...] states she was supposed to come into [place] office today to have labs drawn however sheis currently hung up at [facility] is wondering if she could just have labs drawn there? documented in this encounter Plan of Treatment Upcoming Encounters Date Type Department Care Team (Late st Contact Info) Description 09/09/2024 9:30 AM EDT Routine [facility] OBGYN [address] [place] [address] Jacey Mathews, VARNISHING UNIT OPERATOR 1700 [facility] 701 [place] [address] 09/09/2024 9:30 AM EDT Ancillary Procedure [facility] OBGYN [address] [place] [address] 01/20/2025 3:30 PM EST Office Visit [facility] GASTROENTEROLOGY 1720 [facility] 302 [place] [address] Robbin Escalante MD 1720 [facility] [address] [place] [address] documented as of this encounter Visit Diagnoses Not on filedocumented in this encounter Additional Health Concerns Assessment Noted Time PHQ-2 Depression Total Score: 2 05/28/19 25 4:39 PM EDT documented as of this encounter Care Teams Hydrography Teacher Relationship Specialty Start Date End Date Norma Frideman APRN [address] [place] [place] [address] PCP - General Family Medicine 05/14/24 documented as of this encounter
--- OUTSIDE RECORDS SUMMARY | 2024-09-07 18:00 | XMS_ITS | Encounter Summary ---
[facility] Address [address] [place] [address] Care Team Providers Care Pre Sales Technical Consultant Name Role Phone Norma Friedman APRN Primary Care Provider + [phone] Encounter Details Date Type Department Care Team (Late st Contact Info) Description 08/19/2024 Telephone [facility] OBGYN [address] [place] [address] Jacey Mathews, DIETETIC TECHNICIAN REGISTERED 1700 [facility] [address] [place] [address] Social History Tobacco Use Types Packs/Day Years Used Date Smoking Tobacco: Never Smokeless Tobacco: Never Alcohol Use Standard Drinks/Week Comments Never 0 (1 standard drink = 0.6 oz pur e alcohol) [facility] Utilities Answer Date Recorded In the past 12 months has [employer], [employer], oil, or water [employer] threatened to shut off services in your [...] and heating? Not hard at all 05/28/2024 [facility] of Occupat ional [facility] - Occupational Stress Questionnaire Answer Date [...] EDT Routine [facility] [place] [address] Jacey Mathews, DIETETIC TECHNICIAN REGISTERED 1700 [facility] [address] [place] [address] 09/09/2024 9:30 AM EDT Ancillary Procedure [facility] OBGYN [address] [place] [address] 01/20/2025 3:30 PM EST Office Visit [facility] GASTROENTEROLOGY 1720 [facility] 302 [place] [address] Robbin Escalante MD [address] [place] [address] [place] [address] documented as of this encounter Visit Diagnoses Not on filedocumented in this encounter Additional Health Concerns Assessment Noted Time PHQ-2 Depression Total Score: 2 05/28/19 25 4:39 PM EDT documented as of this encounter Care Teams Pre Sales Technical Consultant Relationship Specialty Start Date End Date Norma Friedman APRN [facility] [place] [address] [place] [address] PCP - General Family Medicine 05/14/24 documented as of this encounter
--- OUTSIDE RECORDS SUMMARY | 2024-09-07 18:00 | XMS_ITS | Encounter Summary ---
Author Organization Healthcare Address [address] [place] [address] Care Team Providers Care Gamemaster Name Role Phone Unavailable Primary Care Provider Unavailabl e Encounter Details Date Type Department Care Team (Late st Contact Info) Description 07/22/2024 [facility] [address] [place] [address] Sandy Cardenas MD 1700 [facility] 701 [place] [id number] Social History Tobacco Use Types Packs/Day Years [...]
--- OUTSIDE RECORDS SUMMARY | 2024-09-07 18:00 | XMS_ITS | Encounter Summary ---
[facility] Address [address] [place] [phone] Care Team Providers Care Access Manager Name Role Phone IvyKade goldbergjoseseven JOLENE Primary Care Provider + [phone] Encounter Details Date Type Department Care Team (Late st Contact Info) Description 09/03/2024 Results Follow-Up [facility] OBGYN [address] [place] [address] Staci Jain MD 1700 [facility] [address] [place] [address] Social History Tobacco Use Types Packs/Day Years Used Date Smoking Tobacco: Never Smokeless Tobacco: Never Alcohol Use Standard Drinks/Week Comments Never 0 (1 standard drink = 0.6 oz pur e alcohol) [facility] Utilities Answer Date Recorded In the past 12 months has [employer], gas, oil, or water [employer] threatened to shut off services in your [...] and heating? Not hard at all 05/28/2024 [facility] of Occupat ional Health - Occupational Stress [...] Info) Description 09/09/2024 9:30 AM EDT Routine [facility] OBGYN [address] [place] [address] Jacey Mathews, EMPLOYEE REPRESENTATIVE 1700 [facility] 701 [place] [address] 09/09/2024 9:30 AM EDT Ancillary Procedure [facility] OBGYN [address] [place] [address] 01/20/2025 3:30 PM EST Office Visit [facility] GASTROENTEROLOGY 1720 [facility] [address] [place] [address] Robbin Escalante MD 1720 [facility] [address] [place] [address] documented as of this encounter Visit Diagnoses Not on filedocumented in this encounter Additional Health Concerns Assessment Noted Time PHQ-2 Depression Total Score: 2 05/28/19 25 4:39 PM EDT documented as of this encounter Care Teams Access Manager Relationship Specialty Start Date End Date Norma Friedman APRN [address] [place] [place] [address] PCP - General Family Medicine 05/14/24 documented as of this encounter
--- OUTSIDE RECORDS SUMMARY | 2024-09-07 18:00 | XMS_ITS | Encounter Summary ---
[facility] Address [address] [place] [phone] Care Team Providers Care Bee Raiser Name Role Phone Ivyashlyn Norma FERNÁNDEZ Primary Care Provider + [phone] Encounter Details Date Type Department Care Team (Late st Contact Info) Description 09/02/[address] [facility] OBGYN [address] [address] Staci Jain MD 1700 [place] [phone] Social History Tobacco Use Types Packs/Day Years Used Date Smoking Tobacco: Never Smokeless Tobacco: Never Alcohol Use Standard Drinks/Week Comments Never 0 (1 standard drink = 0.6 oz pur e alcohol) [facility] Utilities Answer Date Recorded In the past 12 months has [employer], gas, oil, or water [email or web address] threatened to shut off services in your [...] and heating? Not hard at all 05/28/2024 [facility] of Occupat ional Health - Occupational [...] PM EDT She just got d/c'd from [facility] 2 hours ago and they gave her a total 10 MLE of K+ and 3 units of Mag and 2 liters of LR. She has decided to transfer care to [facility] as it iscloser to her like 15 min away. She wants you (Dr. Jain) to know this has nothing to you but rather the nurses and non destructive testing technician doctor did not relay the labs to you in a faster fashion. She said you can call her if you want and she is not angry. Dr. Jain was notified. * Telephone Encounter - Frederick Gruber RN - 09/02/2024 3:10 PM EDT Property Owlt message sent to the pt regarding outpt infusion apt tomorrow at [facility]. documented in this encounter Plan of Treatment Upcoming Encounters Date Type Department Care Team (Late st Contact Info) Description 09/09/2024 9:30 AM EDT Routine [facility] OBGYN [address] [place] [address] Jacey Mathews, FLOOR TILING PROFESSIONAL 1700 [facility] 701 [place] [address] 09/09/2024 9:30 AM EDT Ancillary Procedure [facility] OBGYN [address] [place] [address] 01/20/2025 3:30 PM EST Office Visit [facility] GASTROENTEROLOGY 1720 [facility] 302 [place] [address] Robbin Escalante MD 1720 [facility] [address] [place] [address] documented as of this encounter Visit Diagnoses Not on filedocumented in this encounter Additional Health Concerns Assessment Noted Time PHQ-2 Depression Total Score: 2 05/28/19 25 4:39 PM EDT documented as of this encounter Care Teams Bee Raiser Relationship Specialty Start Date End Date Norma Friedman APRN [address] [place] [place] [address] PCP - General Family Medicine 05/14/24 documented as of this encounter
--- OUTSIDE RECORDS SUMMARY | 2024-09-07 18:00 | XMS_ITS | Encounter Summary ---
[facility] Address [address] [place] [address] Care Team Providers Care Laboratory Animal Caretaker Name Role Phone Elder Norma FERNÁNDEZ Primary Care Provider + [phone] Encounter Details Date Type Department Care Team (Latest Contact Info) Description 07/22/2024 Travel Social History Tobacco Use Types Packs/Day Years Used Date Smoking Tobacco: Never Smokeless Tobacco: Never Alcohol Use Standard Drinks/Week Comments Never 0 (1 standard drink = 0.6 oz pur e alcohol) [facility] Utilities Answer Date Recorded In the past 12 months has [employer], gas, oil, or water company threatened [...] and heating? Not hard at all 05/28/2024 [facility] of Occupat ional Health - Occupational [...] GED or equivalent No 05/28/2024 Preferred Language Tamazight 05/28/2024 PHQ-2 Answer Date Recorded Patient Health [...] 09/09/2024 9:30 AM EDT Routine [facility] OBGYN [address] [place] [address] Jacey Mathews, VAT OPERATOR 1700 [facility] 701 [place] [address] 09/09/2024 9:30 AM EDT Ancillary Procedure [facility] OBGYN [address] [place] [address] 01/20/2025 3:30 PM EST Office Visit [facility] GASTROENTEROLOGY 1720 [facility] 302 [place] [address] Robbin Escalante MD 1720 [facility] [address] [place] [address] documented as of this encounter Visit Diagnoses Not on filedocumented in this encounter Additional Health Concerns Assessment Noted Time PHQ-2 Depression Total Score: 2 05/28/19 25 4:39 PM EDT documented as of this encounter Care Teams Laboratory Animal Caretaker Relationship Specialty Start Date End Date Norma Friedman APRN [address] [place] [place] [address] PCP - General Family Medicine 05/14/24 documented as of this encounter
[2024-09-07 19:23] LABS: Albumin Level 2.7 g/dl (3.5-5.0); Chloride 103 mmol/L (98-107); Potassium 3.2 mmoL/L (3.5-5.1); Sodium 132 mmol/L (136-145)
[2024-09-07 19:26] LABS: Alanine Aminotransferase 15 U/L (12-78); Albumin/Globulin Ratio 0.8 (1.1-1.8); Alkaline Phosphatase 69 U/L (38-126); Anion Gap 7.2 mEq/L (5-15); Aspartate Amino Transferase 27 U/L (14-36); Bilirubin,Total 0.5 mg/dl (0.2-1.3); Blood Urea Nitrogen 5 mg/dl (7-17); Carbon Dioxide 25 mmol/L (22.0-30.0); Creatinine,Serum 0.70 mg/dl (0.52-1.04); Estimated Glomerular Filt Rate 96 ml/min (>60); GFR (African American) 117 ML/MIN (>60); Globulin 3.4 g/dL (1.3-3.2); Total Protein,Serum 6.1 g/dl (6.3-8.2)
[2024-09-07 19:27] LABS: Calcium 9.3 mg/dl (8.4-10.2); Glucose 73 mg/dl (74-100)
== END 2024-09-07 23:59 | disposition home or self-care (01) ==
LOC: LAB 17:57
PROVIDERS: PCP Nurse Practitioner Obstetrics & Gynecology; Visit Provider Nurse Practitioner Obstetrics & Gynecology
DX: O21.9 Vomiting of pregnancy, unspecified (principal); E87.6 Hypokalemia
CPT/HCPCS: 36415; 80053

== ENCOUNTER 2024-09-09 07:55 | Outpatient (CLI) | payer OTHER, SELFPAY ==
--- OUTSIDE RECORDS SUMMARY | 2024-07-22 07:44 | XMS_ITS | Encounter Summary ---
Author Organization [facility] Address [address] [place] [id number] Care Team Providers Care Hand Packer/Packager Name Role Phone Norma Friedman APRN Primary Care Provider + [phone] Reason for Referral * Diagnostic Imaging (Routine) - Closed Specialty Diagnoses / Procedures Referred By Tarik pedersen Referred To Contact Radiology Diagnoses care, antepartum, unspecified High risk due to history of labor, antepartum History of prior with small for gestational age Procedures [facility] Kelly Watkins APRN [address] [facility] [address] [place] [address] Phone: tel: fax: [facility] PER DIAG [facility] [address] [place] [address] Phone: tel: Referral ID Status Reason Start Date Expiration Date Visits Re quested Visits Authorized [id number] Closed 07/08/2024 10/07/2025 1 1 Reason for Visit * Diagnostic Imaging (Routine) - Closed Specialty Diagnoses / Procedures Referred By Tarik t Referred To Contact Radiology Diagnoses care, antepartum, unspecified High risk due to history of labor, antepartum History of prior with small for gestational age Procedures [facility] Kelly Watkins APRN [address] [facility] [address] [place] [address] Phone: tel: fax: [facility] PER DIAG [facility] [address] [place] [address] Phone: tel: Referral ID Status Reason Start Date Expiration Date Visits Re quested Visits Authorized [id number] Closed 07/08/2024 10/07/2025 1 1 Encounter Details Date Type Department Care Team (Late st Contact Info) Description 07/22/2024 7:44 AM EDT - 07/22/2024 11:59 PM EDT Hospital Encounter [facility] DI[facility] [address] [id number] Kelly Watkins, CAMPAIGN ADVISOR [address] [place] [address] care, antepartum, unspecified ; High risk due to history of labor, antepartum; History of prior with small for gestational age Discharge Disposition: Home or Self Care Social History Tobacco Use Types Packs/Day Years Used Date Smoking Tobacco: Never Smokeless Tobacco: Never Alcohol Use Standard Drinks/Week Comments Never 0 (1 standard drink = 0.6 oz pur e alcohol) [facility] Utilities Answer Date Recorded In the past 12 months has [employer] electric, gas, oil, or water [employer] threatened to shut off services in your [...] and heating? Not hard at all 05/28/2024 [facility] [place] [facility] Occup[facility] ional Health - Occupational Stress [...] GED or equivalent No 05/28/2024 Preferred Language Namibian 05/28/2024 PHQ-2 Answer Date Recorded Patient Health Questionnaire-9 Score 2 05/28/2024 Estimated Date of Delivery Comme nts Yes 12/01/2024 Based on last me nstrual period of 02/25/2024 Sex and Gender Information Value Date Recorded Sex Assigned at Female 07/04/2024 10:40 AM EDT Legal Sex Female 10:26 AM EDT Gender Identity Not on file Sexual Orientation Not on file documented as of this encounter Medications at Time of Discharge famotidine (PEPCID) 20 MG tablet Take 1 tablet by mouth 2 (Two) Times a Day. Vit-Fe Fumarate-FA ( VITAMIN PO) promethazine (PHENERGAN) 12.5 MG suppositoryIndi cations:Nausea and vomiting during Insert 1 suppository into the rectum Every 6 (Six) Hours As Needed for Nausea or Vomiting. 60 suppository 05/27/2024 documented as of this encounter Plan of Treatment Upcoming Encounters Date Type Department Care Team (Late st Contact Info) Description 01/20/2025 3:30 PM EST Office Visit [facility] [address] [address] Robbin Escalante MD [address] [address] documented as of this encounter Procedures Procedure Name Priority Date/Time Associated Diagnosis Comments [facility] Routine 07/22/2024 9:10 AM EDT care, antepartum, unspecified High risk due to history of labor, antepartum History of prior with small for gestational age documented in this encounter Results * [facility] (07/22/2024 9:10 AM EDT) Anatomical Region Laterality Modality Ultrasound 07/22/2024 8:20 AM EDT Narrative 07/22/2024 9:18 AM EDT PAT NAME: CAROLE GIRARD MED REC#: [id number] DA: 1990 PAT GEND: F PAT TYPE: O EXAM TRAVIS: [id number] REF PHYS KELLY WATKINS Comparison Studies There [...] EFW (oz) 13 oz EFW by: Hadlock ([id number]) Extended Tibia 28.0 mm 20w 1d 17% Jamal Fibula 27.3 mm 19w 5d 17% Jamal Radius 26.9 mm 20w 0d 36% Jamal Ulna 30.0 mm 21w 1d 33% Jamal Cav. septi pel. tr 3.7 mm Sdc Teacher 5.4 mm CM 4.7 mm 32% Nicolaides [...] normal IVC: normal 3-vessel view: Appears normal 1-guiqag-vkfqgxp view: Appears normal Rt lung: Appears normal [...] Follow-up as clinically indicated. Coding ======= Description: 28567-68 Detailed Locker Room Clerk: Cheyenne Spence RDMS Physician: Sebastian Larsen MD, FACOG Electronically signed by: Sebastian Larsen MD, FACOG at: 09:18 Procedure Note Sebastian Larsen MD - 07/22/2024 PAT NAME: CAROLE GIRARD MED REC#: [id number] DA: [id number] PAT GEND: F PAT TYPE: O EXAM TRAVIS: [id number] REF PHYS KELLY WATKINS Comparison Studies There are no relevant prior studies to which this study is beingcompared Patient Status Outpatient Indication ======== Incomplete anatomy, previous SGA, hx c/s x1 Maternal Assessment Ntomgk251 cm Height (ft)5 ft Height (in)4 in Cyksqt45 kg Weight (lb)163 lb BMI28.17 kg/m Method ======= Transabdominal ultrasound examination ========= Love . Number of fetuses: 1 Dating ====== Method of dating:based on stated DUSTY GA by prior [id number] w + 1 d DUSTY by prior assessment:12/01/2024 Ultrasound examination on:07/22/2024 GA by U/S based upon:AC, BPD, Femur, HC GA by U/S20 w + 5 d DUSTY by U/S:12/04/2024 Previous dating:based on stated DUSTY, selected on 07/05/2024 Agreed DUSTY of previous datin12/01/2024 Assigned:based on stated DUSTY, selected on 07/22/2024 Assigned GA21 w + 1 d Assigned DUSTY:12/01/2024 [id number] d Biometry Standard BPD47.5 mm 20w 3d 19% Hadlock OFD63.7 mm 21w 5d 69% Jamal HC177.8 mm 20w 2d 9% Hadlock Cerebellum tr22.0 mm 20w 4d 46% Hill AC160.4 mm 21w 1d 43% Hadlock Femur33.9 mm 20w 5d 24% Hadlock Ptsuhjv40.7 mm 21w 0d 40% Jamal HC / AC1.11 MXE255 g 20w 5d 29% Hadlock EFW (lb)0 lb EFW (oz)13 oz EFW by:Hadlock (YZH-HH-MV-FL) Extended Tibia28.0 mm 20w 1d 17% Jamal Hxnlsa39.3 mm 19w 5d 17% Jamal Tulmbm04.9 mm 20w 0d 36% Jamal Ulna30.0 mm 21w 1d 33% Jamal Cav. septi pel. tr3.7 mm Vp5.4 mm CM4.7 mm 32% Nicolaides Head / Face / Neck Cephalic index0.75 11% Nicolaides Extremities / Bony Struc FL / BPD0.71 FL / HC0.19 FL / AC0.21 Other Structures ZXB562 bpm General Evaluation Cardiac activity present. FHR [...] view:Appears normal SVC:normal IVC:normal 3-vessel view:Appears normal 3-cfyhvf-zmjybva view:Appears normal Rt lung:Appears normal Lt lung:normal [...] Structures Uterus / Cervix Cervix:Visualized Approach:Transabdominal Cervical zjaozh06.6 mm Ovaries / Tubes / Adnexa Rt ovary:Visualized Lt ovary:Visualized Impression Today's exam reveals a SIUP with biometry consistent with dates. Fetalanatomic survey appears normal. Fluid is normal. The placenta is anterior,left. The TA cervical length appears adequate Recommendation Follow-up as clinically indicated. Coding ======= Description:72574-43 Detailed Locker Room Clerk: Cheyenne Spence RDMS Physician: Sebastian Larsen MD, FACOG Electronically signed by: Sebastian Larsen MD, FACOG at: 09:18 Result [facility] Kelly Watkins APRN [facility] US ORDERABLES Final Resu lt documented in this encounter Visit Diagnoses Diagnosis care, antepartum, unspecified High risk due to history of labor, antepartum History of prior with small for gestational age documented in this encounter Additional Health Concerns Assessment Noted Time PHQ-2 Depression Total Score: 2 05/28/19 25 4:39 PM EDT documented as of this encounter Care Teams Hand Packer/Packager Relationship Specialty Start Date End Date Norma Friedman APRN [address] [place] [place] [address] PCP - General Family Medicine 05/14/24 documented as of this encounter
--- OUTSIDE RECORDS SUMMARY | 2024-07-22 08:00 | XMS_ITS | Encounter Summary ---
Author Organization [facility] Address [address] [place] [id number] Care Team Providers Care Project Controller Name Role Phone Ivyashlyn Valentinoseven JOLENE Primary Care Provider + [phone] Reason for Visit * Reason Comments incomplete anatomy; hx SGA in prev. preg onelia; prev. c/s Encounter Details Date Type Department Care Team (Late st Contact Info) Description 07/22/2024 8:00 AM EDT Office Visit [facility] MATERNAL MEDICINE [address] [place] [address] [place] [address] Sebastian Larsen MD 1700 [facility] [address] [place] [phone] History of prior with small for gestational age (Primary Dx) Social History Tobacco Use Types Packs/Day Years Used Date Smoking Tobacco: Never Smokeless Tobacco: Never Alcohol Use Standard Drinks/Week Comments Never 0 (1 standard drink = 0.6 oz pur e alcohol) [facility] Utilities Answer Date Recorded In the past 12 months has [employer] electric, gas, oil, or water company threatened [...] and heating? Not hard at all 05/28/2024 [facility] [place] of Occupat ional Health - Occupational Stress [...] GED or equivalent No 05/28/2024 Preferred Language South Sudanese 05/28/2024 PHQ-2 Answer Date Recorded Patient Health [...] Description 01/20/2025 3:30 PM EST Office Visit [facility] GASTROENTEROLOGY 1720 [facility] [address] [place] [address] Robbin Escalante MD 1720 [facility] [address] [place] [address] documented as of this encounter Visit Diagnoses Diagnosis History of prior with small for gestational age - Primary documented in this encounter Additional Health Concerns Assessment Noted Time PHQ-2 Depression Total Score: 2 05/28/19 25 4:39 PM EDT documented as of this encounter Care Teams Project Controller Relationship Specialty Start Date End Date Norma Friedman APRN [address] [place] [address] [place] [address] PCP - General Family Medicine 05/14/24 documented as of this encounter
--- OUTSIDE RECORDS SUMMARY | 2024-07-22 09:10 | XMS_ITS | Encounter Summary ---
[facility] Address [address] [place] [phone] Care Team Providers Care Hospital Unit Coordinator Name Role Phone Norma Friedman APRN Primary Care Provider + [phone] Reason for Referral * Consultation (Routine) - Closed Specialty Diagnoses / Procedures Referred By Contac t Referred To Contact Nephrology Diagnoses History of proteinuria syndrome Procedures [place] OFFICE/OUTPATIENT NEW MODERATE MDM 45 MINUTES Staci Jain MD [address] [place] [address] Phone: tel: fax: [place] [address] Phone: tel: Referral ID Status Reason Start Date Expiration Date V isits Requested Visits Authorized [id number] Closed Specialty Services Required 07/22/2024 10/21/2025 1 1 Reason for Visit * Reason Comments Routine Visit * Diagnostic Imaging (Routine) - Closed Specialty Diagnoses / Procedures Referred By Contact Referred To Contact Obstetrics and Gynecology Diagnoses care, subsequent , second trimester Procedures US Ob 14 + Weeks Single or First Gestation Koby Roberts MD [address] [facility] [address] [place] [address] Phone: tel: fax: [facility] OBGYN [address] [place] [address] Phone: tel: fax: Referral ID Status Reason Start Date Expiration Date Visits Re quested Visits Authorized [id number] Closed 06/11/2024 09/10/2025 1 1 Encounter Details Date Type Department Care Team (Late st Contact Info) Description 07/22/2024 9:10 AM EDT Routine [facility] OBGYN [address] [phone] Staci Jain MD [address] [address] [place]: 21w1d Social History Tobacco Use Types Packs/Day Years Used Date Smoking Tobacco: Never Smokeless Tobacco: Never Alcohol Use Standard Drinks/Week Comments Never 0 (1 standard drink = 0.6 oz pur e alcohol) [facility] Utilities Answer Date Recorded In the past 12 months has [employer], gas, oil, or water [employer] threatened to shut off services in your [...] and heating? Not hard at all 05/28/2024 [facility] [place] of Occupat ional Health - Occupational Stress [...] GED or equivalent No 05/28/2024 Preferred Language Welsh 05/28/2024 PHQ-2 Answer Date Recorded Patient Health Questionnaire-9 Score 2 05/28/2024 Estimated Date of Delivery Comme nts Yes 12/01/2024 Based on last ga nstrual period of 02/25/2024 Sex and Gender [...] IUGR. Unknown reasons. Has not seen a furniture repairer This is my first time seeing patient. Transferred care. Will want to be seen in [facility]. Her care is complicated by (and [...] about 4 weeks (around 08/19/2024) for in [place]. Staci Jain MD 07/22/2024 documented in this encounter Plan of Treatment Upcoming Encounters Date Type Department Care Team (Late st Contact Info) Description 01/20/2025 3:30 PM EST Office Visit [facility] [address] [address] Robbin Escalante MD [address] [facility] [address] Scheduled Orders Name Type Priority Associated Diagnoses [...] AM EDT) Glucose, UA Negative Negative mg/dL [facility] Protein, POC 1+(A) Negative mg/dL [facility] Urine 07/22/2024 10:0 2 AM EDT Staci Jain MD POINT OF CARE TEST OR DERABLES Final Result [facility]
[address] [place] [address], documented in this encounter Visit Diagnoses Diagnosis Multigravida in second trimester- Primary care, subsequent , second trimester History of proteinuria syndrome History of Other postprocedural status documented in this encounter Additional Health Concerns Assessment Noted Time PHQ-2 Depression Total Score: 2 05/28/19 25 4:39 PM EDT documented as of this encounter Care Teams Hospital Unit Coordinator Relationship Specialty Start Date End Date Norma Friedman APRN [address] [place] [address] [place] [id number] PCP - General Family Medicine 05/14/24 documented as of this encounter
--- OUTSIDE RECORDS SUMMARY | 2024-08-19 10:15 | XMS_ITS | Encounter Summary ---
[facility] Organization [facility] Address [address] [place] [id number] Care Team Providers Care Data Officer Name Role Phone Norma Friedman APRN Primary Care Provider + [phone] Reason for Visit * Reason Comments Routine Visit Encounter Details Date Type Department Care Team (Late st Contact Info) Description 08/19/2024 10:15 AM EDT Routine [facility] OBGYN [address] [place] [address] Jacey Mathews, GANG MINER [address] [place] [address] GA: 25w1d Social History Tobacco Use Types Packs/Day Years Used Date Smoking Tobacco: Never Smokeless Tobacco: Never Alcohol Use Standard Drinks/Week Comments Never 0 (1 standard drink = 0.6 oz pur e alcohol) [facility] Utilities Answer Date Recorded In the past 12 months has [employer], gas, oil, or water [employer] threatened to shut off services in your [...] and heating? Not hard at all 05/28/2024 [facility] [place] [facility] - Occupational Stress Questionnaire Answer Date [...] this encounter Progress Notes * Jacey Mathews, GANG MINER - 08/19/2024 10:15 AM EDT Images from [...] Description 01/20/2025 3:30 PM EST Office Visit [facility] GASTROENTEROLOGY [address] [facility] [address] [place] [address] Robbin Escalante MD [address] [facility] [address] [place] [address] documented as of this encounter Visit Diagnoses Diagnosis Vaginal bleeding in - Primary 25 weeks gestation of documented in this encounter Additional Health Concerns Assessment Noted Time PHQ-2 Depression Total Score: 2 05/28/19 25 4:39 PM EDT documented as of this encounter Care Teams Data Officer Relationship Specialty Start Date End Date Norma Friedman APRN [address] [place] [address] [place] [id number] PCP - General Family Medicine 05/14/24 documented as of this encounter
--- OUTSIDE RECORDS SUMMARY | 2024-08-19 13:59 | XMS_ITS | Encounter Summary ---
[facility] [address] [place] [id number] Care Team Providers Care Chief Gauger Name Role Phone Ivyaslhyn Norma EFRNÁNDEZ Primary Care Provider + [phone] Reason for Visit * Reason Comments Vaginal Bleeding * Auth/Cert (Routine) Specialty Diagnoses / Procedures Referred By Contleyla t Referred To Contact Referral ID Status Reason Start Date Expiration Date Visits Re quested Visits Authorized [id number] 1 1 Encounter Details Date Type Department Care Team (Late st Contact Info) Description 08/19/2024 1:59 PM EDT - 08/20/2024 4:28 PM EDT Hospital Encounter [facility] [address] [place] [id number] Rob Wharton MD [address] [facility] [address] [place] [address] Blu Alvarado MD [address] [facility] [address] [place] [address] Dysphagia, unspecified type (Primary Dx) Discharge Disposition: Home or Self Care Social History Tobacco Use Types Packs/Day Years Used Date Smoking Tobacco: Never Smokeless Tobacco: Never Alcohol Use Standard Drinks/Week Comments Never 0 (1 standard drink = 0.6 oz pur e alcohol) [facility] Utilities Answer Date Recorded In the past 12 months has [employer], gas, oil, or water [employer] threatened to shut off services in your [...] and heating? Not hard at all 05/28/2024 [facility] [place] [facility] Occupat ional Health - Occupational Stress [...] GED or equivalent No 05/28/2024 Preferred Language Central African 05/28/2024 PHQ-2 Answer Date Recorded Patient Health [...] Sign Reading Time Taken Comments Blood Pressure 87/48 08/20/2024 2:55 PM EDT Pulse 67 08/20/2024 2:55 PM EDT Temperature 36.4 C (97.6 F) 08/20/2024 2:55 PM EDT Respiratory Rate 16 08/20/2024 2:55 PM EDT Oxygen Saturation 97% 08/20/2024 2:55 PM EDT Inhaled Oxygen Concentration - - Weight 71.7 kg (158 lb) 08/19/2024 2:33 PM EDT Height 160 cm (5' 3 ) 08/19/2024 2:33 PM EDT Body Mass Index 27.99 08/19/2024 2:33 PM EDT documented in this encounter Functional Status * Question Answer Date of Assessment Author 1. Wish to be (Past 1 Month) No 025 1:23 PM EDT Polly Cabrera RN 2. Non-Specific Active Suici mike Thoughts (Past 1 Month) No 08/20/2024 1:23 PM EDT Diego Cabrera RN * Calculated C-SSRS Risk Score (Lifetime/Recent) Answer Date of Assessment Author No Risk Indicated 08/20/2024 1:23 PM EDT Polly Lacey RN * [place] Suicide Severity Rating Scale (Screener/Recent Self-Report) Question Answer Date of Assessment Author 6. Suicidal Behavior (Lifetime) No 1:23 PM EDT Polly Cabrera RN documented as of this encounter Discharge Summaries * Rob Wharton MD - 08/20/2024 3:36 PM EDT Date of Discharge: 08/20/2024 Discharge Diagnosis: IUP @ 25wk, dysphagia, nausea/vomiting, hypokalemia, previous c/s, previous Presenting Problem/History of Present Illness Hypokalemia due to excessive gastrointestinal loss of potassium [E87.6] Hospital Course 34yo @ 25w1d gestation with reactive status. History of vaginal bleeding (heavy passing clots, August 16) no current bleeding noted. History of C- section x 1 with 2 subsequent 's, History of hiatal hernia diagnosed by upper GI. History of recurrent third trimester hypokalemia, Ongoing nausea and vomiting intermittent throughout the with no weight gain. She was admitted and given hydration, repletion of potassium and thiamine. She was tried on severalantiemetics and started on carafate and Buspar. GI saw her and with c/o dysphagia-like symptoms, she was taken for EGD. This was significant for gastritis. Biopsy was done for H. Pylori. Pt. Was seeking discharge just after EGD with kids at home. She josep some clears and was d/c to home. Procedures Performed Procedure(s): ESOPHAGOGASTRODUODENOSCOPY 08/20 1309 Upper GI Endoscopy Consults: Consults Date and Time Order Name Status Description 08/19/2024 4:12 PM Inpatient Gastroenterology Consult Completed Pertinent Test Results: K 2.8 on admission Condition on Discharge: stable Vital Signs Temp: [97 ??F (36.1 ??C)-98.5 ??F (36.9 ??C)] 97.6 ??F (36.4 ??C) Heart Rate: [61-94] 67 Resp: [16-21] 16 BP: (81-111)/(43-64) 87/48 Discharge Disposition home Discharge Medications Discharge Medications ASK your doctor about these medications Instructions Start Date famotidine 20 MG tablet Commonly known as: PEPCID 1 tablet, 2 Times Daily omeprazole 20 MG capsule Commonly known as: priLOSEC 20 mg, Daily VITAMIN PO promethazine 12.5 MG suppository Commonly known as: PHENERGAN 12.5 mg, Rectal, Every 6 Hours PRN Discharge Diet: encouraged smoothies, protein shakes etc. Activity at Discharge: precautions Follow-up Appointments Labs beginning of week and f/u with nh Seng Test Results Pending at Discharge Pending Labs Order Current Status Tissue Pathology Exam In process Rob Wharton MD 08/20/24 15:36 EDT Time: Discharge <30 min documented in this encounter Discharge Instructions * Attachments The following attachments cannot be sent through Care Everywhere. * Second Trimester of (Central African) * Upper Endoscopy Adult Care After (Central African) documented in this encounter Medications at Time of Discharge busPIRone (BUSPAR) 5 MG tablet Take 1 tablet by mouth 3 (Three) Times a Day. 90 tablet 2 08/20/2024 famotidine (PEPCID) 20 MG tablet Take 1 tablet by mouth 2 (Two) Times a Day. omeprazole (priLOSEC) 20 MG capsule Take 1 capsule by mouth Daily. Vit-Fe Fumarate-FA ( VITAMIN PO) promethazine (PHENERGAN) 12.5 MG suppositoryIndi cations:Nausea and vomiting during Insert 1 suppository into the rectum Every 6 (Six) Hours As Needed for Nausea or Vomiting. 60 suppository 05/27/2024 sucralfate (CARAFATE) 1 g tablet Take 1 tablet by mouth 4 (Four) Times a Day Before Meals & at Bedtime. 90 tablet 1 08/20/2024 documented as of this encounter Progress Notes * Rob Wharton MD - 08/20/2024 9:16 AM EDT Daily Progress Note Patient name: Carole Girard Date of : 1990 Referring Provider: Rob Wharton Admission Date: 08/19/2024 Date of Service: 08/20/2024 Carole Girard is a 34 y.o. at 25w2d admitted on 08/19/2024 for hypokalemia, N/V Hospital day 0 Diagnoses: History of Labs Lab Results Component Value Date HGB 10.5 (L) 08/19/2024 ABO O 08/19/2024 RH Positive 08/19/2024 ABSCRN Negative 08/19/2024 [id number] non-reactive 04/12/2024 HEPCVIRUSABY negative 04/12/2024 URINECX Final report 07/05/2024 Subjective: Carole has no complaints today. Reports movement is normal No contractions Denies leakage of amniotic fluid. Denies vaginal bleeding States not GERD or nausea, but feels like even water gets stuck in throat and she has to cough and ends up vomiting. H/o hiatal hernia. States her babies always grow up instead of out and this causessymptoms, hypokalemia in 3rd trimester. But sx's started early and not really GERD but that feelingof getting stuck this time. Has tried Reglan in the past both IV and PO and she had a lot of anxiety with it. Review of Systems - c/o constipation but decreased output b/c decreased input. Has tried miralax, colace etc. Objective: Vital signs: Vital Signs Range for the last 24 hours Temperature: Temp: [97.7 ??F (36.5 ??C)-98.5 ??F (36.9 ??C)] 98.2 ??F (36.8 ??C) Temp Source: Temp src: Oral BP: BP: (81-111)/(43-70) 88/47 Pulse: Heart Rate: [62-84] 69 Respirations: Resp: [16-18] 16 Weight: 71.7 kg (158 lb) General: Alert & oriented x4, in no apparent distress HEENT: Grossly normal Resp: Unlabored breathing Abdomen: Soft, nontender Uterus: Gravid, nontender Extremities: Nontender, no pain, no edema Neurologic: Alert & oriented x 4, no focal deficits noted Psychiatric: Speech and behavior appropriate Non-Stress Test: Heart Rate Assessment Method: HR Assessment Method: external Beats/min: HR (beats/min): 135 Baseline: HR Baseline: normal range Variability: HR Variability: moderate (amplitude range 6 to 25 bpm) Accels: HR Accelerations: greater than/equal to 10 bpm (32 wks gest or less), lasts at least 10 seconds (32 wks gest or less) Decels: HR Decelerations: absent Tracing Category: Uterine Assessment Method: Method: external tocotransducer Frequency (min): Ctx Count in 10 min: Duration: Intensity: Contraction Intensity: no contractions Intensity by IUPC: Resting Tone: Resting Tone by IUPC: [place] Units: Cervix: Exam by: Method: sterile vaginal exam performed, sterile speculum exam performed (per Dr. Fan) Dilation: Effacement: Station: Most recent ultrasound: Normal PDC scan, normal cervical length Medications: Infuvite Adult 10 mL in sodium chloride 0.9 % 1,000 mL IVPB, , Intravenous, Daily pantoprazole, 40 mg, Intravenous, Q12H potassium chloride, 20 mEq, Oral, BID With Meals potassium chloride, 10 mEq, Intravenous, Q1H sodium chloride, 10 mL, Intravenous, Q12H ondansetron Potassium Replacement - Follow Nurse / BPA Driven Protocol sodium chloride sodium chloride Labs: Lab Results Component Value Date WBC 9.19 08/19/2024 HGB 10.5 (L) 08/19/2024 HCT 31.4 (L) 08/19/2024 MCV 87.7 08/19/2024 PLT 241 08/19/2024 CREATININE 0.51 (L) 08/20/2024 AST 22 08/19/2024 ALT 10 08/19/2024 Results from last 7 days Lab Units 08/19/24 1634 08/19/24 1502 ABO TYPING O O RH TYPING Positive Positive ANTIBODY SCREEN -- Negative Assessment/Plan: 08/20/24 Carole is a 34 y.o. at 25w2d with hypokalemia, vomiting Medical Problems Hospital Problem List History of Overview Signed 07/05/2024 12:14 PM by Kelly Delgado APRN 2015-waiting on records Appreciate GI consult, consideration of upper GI. Consider buspar which she had taken in the past. Replace potassium PO to closer to 4. Rob Wharton MD 08/20/2024 09:16 EDT documented in this encounter H&P Notes * Kt Fan DO - 08/19/2024 4:18 PM EDT Potassium 2.6, replace potassium start proton pump inhibitors every 12, and GI consult. Source Note - Kt Fan DO - 08/19/2024 2:58 PM EDT Images from the original note were not included. [facility] Obstetric History and Physical Referring Provider: Rob Wharton* Chief Complaint Patient presents with Vaginal Bleeding Subjective Patient is a 34 y.o. female currently at 25w1d, who presents with history of vaginal bleeding, abdominal pain, and ongoing nausea and vomiting throughout the . Patient states August 16developed heavy vaginal bleeding with clots for 3 to 4 hours and abdominal pain cramping that slowly subsided. Patient denies any current vaginal bleeding. Denies recent trauma, leaking of fluid, urinary symptoms, reports normal activity. course complicated by 1 prior with2 successful 's, first trimester vaginal bleeding, history of hiatal hernia, history of recurrent hypokalemia during her third trimesters prior pregnancies(etiology unknown). Patient's assistant counsel is in [facility]. She states has never had a EGD only upper GI. Patient previously on omeprazole and Pepcid however was instructed to stop both medicines this past week. The following portions of the patients history were reviewed and updated as appropriate: current medications, allergies, past medical history, past surgical history, past family history, past social history, and problem list . Information: Maternal Labs Blood Type No results found for: ABO Rh Status No results found for: RH Antibody Screen No results found for: ABSCRN Gonnorhea No results found for: GCCX Chlamydia No results found for: CLAMYDCU RPR No results found for: RPR Syphilis Antibody No results found for: SYPHILIS Rubella No results found for: RUBELLAIGGIN Hepatitis B Surface Antigen No results found for: HEPBSAG HIV-1 Antibody No results found for: LABHIV1 Hepatitis C Antibody No results found for: HEPCAB Rapid Urin Drug Screen No results found for: AMPMETHU , BARBITSCNUR , LABBENZSCN , LABMETHSCN , LABOPIASCN , THCURSCR , COCAINEUR , AMPHETSCREEN , PROPOXSCN , BUPRENORSCNU , METAMPSCNUR , OXYCODONESCN , TRICYCLICSCN Group B Strep Culture No results found for: GBSANTIGEN External Results Outside Results - Transcribed From [...] SAB IAB Ectopic Molar Multiple Live Births 2 0 1 0 0 5 # Outcome Date GA Lbr Morgan/2nd Weight Sex Type Anes PTL Lv 9 Current 8 SAB 01/05/24 10w0d SAB Comments: D&C 7 2020 Biochemical 6 Term 08/21/19 M JAGDISH 5 Ectopic 07/20/18 ECTOPIC Comments: D&C 4 Term 04/21/16 F JAGDISH 3 06/19/14 35w0d M CS-Unspec JAGDISH Comments: bradycardia, stat c/s Complications: Other 2 Term 09/05/12 M Vag-Spont JAGDISH 1 Term 08/11/10 F Vag-Spont JAGDISH Obstetric Comments Preg 1-7 = FOB #1 Preg 8-9 = FOB #2 2017: retained products - PPH 14 days , required blood transfusion Patient reports hypokalemia and proteinuria towards the end of each , no preeclampsia Past Medical History: Past Medical History: Diagnosis Date Abnormal Pap smear of cervix 2016 Anxiety GERD (gastroesophageal reflux disease) Hemorrhage after first 24 hours following delivery of placenta 2017 14 days PP with retained products Hiatal hernia 2024 History of transfusion PPH Recurrent loss, antepartum condition or complication Past Surgical History Past Surgical History: Procedure Laterality Date CERVICAL BIOPSY W/ LOOP ELECTRODE EXCISION 2017 SECTION 2015 COLPOSCOPY 2017 DILATATION AND CURETTAGE 2017 PPH with retained products 14 days PP DILATATION AND CURETTAGE x2 for loss EAR TUBES WISDOM TOOTH EXTRACTION Family History: Family History Problem Relation Age of Onset Hypertension Father Heart attack Father Stroke Father Hyperlipidemia Father Diabetes type II Father Diabetes type II Mother Hypertension Mother Liver disease Mother Social History: reports that she has never smoked. She has never used smokeless tobacco. reports no history of alcohol use. reports no history of drug use. General ROS Negative Findings:Headaches, Visual Changes, Epigastric pain, and ROM ROS All other systems have been reviewed and are neg Objective Vital Signs Range for the last 24 hours Temperature: Temp Source: BP: BP: (110)/(70) 110/70 Pulse: Respirations: SPO2: O2 Amount (l/min): O2 Devices Weight: Weight: [71.7 kg (158 lb)-72.1 kg (159 lb)] 71.7 kg (158 lb) Physical Examination: General: alert, appears stated age, and cooperative Skin: normal HEENT: Lungs: clear to auscultation bilaterally Heart: Gastrointestinal: Soft, gravities, guarding benign exam Lower Extremities: No edema, no calf tenderness : Normal external genitalia, speculum exam revealed vaginal vault clear no blood noted cervix parous, no lesions noted no blood noted the cervical os appeared closed. Musculoskeletal: Neuro: No focal deficits noted. Presentation: Cervix: Exam by: Method: sterile vaginal exam performed, sterile speculum exam performed Dilation: Closed Effacement: TH Station: Ne NO blood noted Heart Rate Assessment Method: Beats/min: Baseline: Varibility: Accels: Decels: Tracing Category: NST-indications vaginal bleeding rotation reactive, moderate bili, accelerations present 10 x 10, no decels onset 1423 endtime 1500 no ctx Uterine Assessment Method: Frequency (min): Ctx Count in 10 min: Duration: Intensity: Intensity by IUPC: Resting Tone: Resting Tone by IUPC: [place] Units: Laboratory Results: Lab Results (last 24 hours) No results found for the last 24 hours. Radiology Review: Imaging Results (Last 24 Hours) No results found for the last 24 hours. Other Studies: Assessment & Plan History of BOOM Course / Assessment: 1. All lab and imaging results listed above have been reviewed by me. 2. Intrauterine at 25w1d gestation with reactive status. 3. History of vaginal bleeding (heavy passing clots, August 16) no current bleeding noted 4. History of x 1 with 2 subsequent 's 5. History of hiatal hernia diagnosed by upper GI 6. History of recurrent third trimester hypokalemia 7. Ongoing nausea and vomiting intermittent throughout the with no weight gain. Plan: IV access, labs, urinalysis, IV hydration, thiamine/multivitamin PDC ultrasound, and reevaluate. GIconsult if patient is admitted. 2. 3. Plan of care has been reviewed with patient. 4. Risks, benefits of treatment plan have been discussed. 5. All questions have been answered. 6. Kt Fan DO 08/19/2024 14:58 EDT documented in this encounter Consult Notes * Lindsay Gambino APRN - 08/20/2024 10:20 AM EDTAssociated Order(s): IP CONSULT TO GASTROENTEROLOGY [facility] [place] Gastroenterology Consult Referring Provider: Dr. Fan/Dr. Wharton PCP: Norma Friedman APRN Reason for Consultation: IUP 25 weeks gestation, history of hiatal hernia, chronic nausea and vomiting at times dysphagia for greater than 15 years. Chief complaint: nausea, vomiting, dysphagia History of present illness: Carole Girard is a 34 y.o. female currently at 25w1d, who presents with history of vaginal bleeding (currently denies vaginal bleeding), abdominal pain, and ongoing nausea and vomiting throughout the . She also has history of recurrent hypokalemia during her third trimesters prior pregnancies(etiology unknown). Patient expresses concern that for 3 weeks she has experienced sensation of object pushing with what feels like pressure into her esophagus, vomiting hot liquid, coughing, gagging, regurgitation thatseems different than history of reflux type symptoms. She reports difficulty during current due to weight loss and expresses concern regarding malnutrition as well as recurrent hypokalemia.She is having difficulty swallowing due to symptoms She expresses concern regarding recent CT scan at [facility] revealing a hiatal hernia. CT scan done prior to most recent due to ovarian cyst and incidentally revealed hiatal hernia. She reports chronic gastrointestinal symptoms. Review of medical record revealed prior GI referral due to blood per rectum. She reports colonoscopy in 2020 at outside facility that revealed diverticulosis and benign colon polyp. She is currently established with provider at [facility] for gastroenterology care she reports repeat EGD and colonoscopy will plan but when patient found out she was procedures were canceled. She reports gastrointestinal symptoms for approximately 15 years but abnormal sensation in throat is a new symptom with current . She had EGD 12 years ago without abnormal finding. She had aswallow evaluation prior to EGD without abnormal finding. She overall is concerned about more significant GI symptoms during current and ability tomaintain nutrition,. Gain weight for the remainder of her Patient was taking omeprazole and Pepcid prior to speaking to nurse at GI provider's office who recommended she stop omeprazole and Pepcid as it did not seem helpful and her symptoms could be due to underlying diagnosis of gastroparesis and could be negatively affecting digestion/absorption of nutri tion. She reports having a bowel movement 1 day/week despite taking 2 doses of MiraLAX daily With Citrucel and intermittent use of Fleet enema Allergies: Tobacco and Bismuth subsalicylate Scheduled Meds: Infuvite Adult 10 mL in sodium chloride 0.9 % 1,000 mL IVPB, , Intravenous, Daily pantoprazole, 40 mg, Intravenous, Q12H potassium chloride, 20 mEq, Oral, BID With Meals potassium chloride, 10 mEq, Intravenous, Q1H sodium chloride, 10 mL, Intravenous, Q12H Infusions: dextrose 5 % and lactated Ringer's, 125 mL/hr, Last Rate: Stopped (08/20/24 0838) PRN Meds: ondansetron Potassium Replacement - Follow Nurse / BPA Driven Protocol sodium chloride sodium chloride Home Meds: Medications Prior to Admission Medication Sig Dispense Refill Last Dose/Taking omeprazole (priLOSEC) 20 MG capsule Take 1 capsule by mouth Daily. 08/18/2024 Vit-Fe Fumarate-FA ( VITAMIN PO) Past Week promethazine (PHENERGAN) 12.5 MG suppository Insert 1 suppository into the rectum Every 6 (Six) Hours As Needed for Nausea or Vomiting. 60 suppository 0 Past Week famotidine (PEPCID) 20 MG tablet Take 1 tablet by mouth 2 (Two) Times a Day. Unknown ROS: Review of Systems Constitutional: Positive for appetite change. Negative for chills and fever. HENT: Negative for ear discharge and ear pain. Eyes: Negative for pain and discharge. Respiratory: Positive for cough. Negative for shortness of breath. Cardiovascular: Negative for chest pain and palpitations. Gastrointestinal: As in HPI Endocrine: Negative for polydipsia, polyphagia and polyuria. Genitourinary: Negative for dysuria and frequency. Musculoskeletal: Negative for back pain and gait problem. Skin: Negative for color change and rash. Neurological: Negative for dizziness, syncope and headaches. Hematological: Does not bruise/bleed easily. PAST MED HX: Past Medical History: Diagnosis Date Abnormal Pap smear of cervix 2017 Anxiety GERD (gastroesophageal reflux disease) Hemorrhage after first 24 hours following delivery of placenta 2017 14 days PP with retained products Hiatal hernia 2024 History of transfusion PPH Recurrent loss, antepartum condition or complication PAST SURG HX: Past Surgical History: Procedure Laterality Date CERVICAL BIOPSY W/ LOOP ELECTRODE EXCISION 2017 SECTION 2015 COLPOSCOPY 2017 DILATATION AND CURETTAGE 2017 PPH with retained products 14 days PP DILATATION AND CURETTAGE x2 for loss EAR TUBES WISDOM TOOTH EXTRACTION FAM HX: Family History Problem Relation Age of Onset Hypertension Father Heart attack Father Stroke Father Hyperlipidemia Father Diabetes type II Father Diabetes type II Mother Hypertension Mother Liver disease Mother SOC HX: Social History Socioeconomic History Marital status: Tobacco Use Smoking status: Never Smokeless tobacco: Never Vaping Use Vaping status: Never Used Substance and Sexual Activity Alcohol use: Never Drug use: Never Sexual activity: Yes Partners: Male PHYSICAL EXAM BP (!) 88/47 (BP Location: Right arm, Patient Position: Lying) Pulse 69 Temp 98.2 ??F (36.8 ??C) (Oral) Resp 16 Ht 160 cm (63 ) Wt 71.7 kg (158 lb) LMP 02/25/2024 SpO2 100% BMI 27.99 kg/m?? Wt Readings from Last 3 Encounters: 08/19/24 71.7 kg (158 lb) 08/19/24 72.1 kg (159 lb) 07/22/24 73.9 kg (163 lb) ,body mass index is 27.99 kg/m??. Physical Exam Constitutional: General: She is not in acute distress. Appearance: She is not toxic-appearing. HENT: Head: Normocephalic and atraumatic. No contusion. Right Ear: External ear normal. Left Ear: External ear normal. Eyes: General: Lids are normal. No scleral icterus. Right eye: No discharge. Left eye: No discharge. Extraocular Movements: Extraocular movements intact. Neck: Trachea: Trachea normal. Comments: No visible mass No visible adenopathy Cardiovascular: Rate and Rhythm: Normal rate. Pulmonary: Effort: No respiratory distress. Comments: Symmetrical expansion Abdominal: General: Bowel sounds are normal. Comments: Gravid abdomen Musculoskeletal: Comments: Symmetrical movement of upper extremities Skin: General: Skin is warm and dry. Coloration: Skin is not jaundiced. Neurological: General: No focal deficit present. Mental Status: She is alert and oriented to person, place, and time. Psychiatric: Mood and Affect: Mood normal. Behavior: Behavior normal. Thought Content: Thought content normal. Results Review: I reviewed the patient's new clinical results. Lab Results Component Value Date WBC 9.19 08/19/2024 HGB 10.5 (L) 08/19/2024 HGB 12.4 06/25/2024 HGB 11.6 (L) 05/27/2024 HCT 31.4 (L) 08/19/2024 MCV 87.7 08/19/2024 PLT 241 08/19/2024 Lab Results Component Value Date GLUCOSE 84 08/20/2024 BUN 2.3 (L) 08/20/2024 CREATININE 0.51 (L) 08/20/2024 BCR 4.5 (L) 08/20/2024 NA 139 08/20/2024 K 3.5 08/20/2024 CO2 23.5 08/20/2024 CALCIUM 7.8 (L) 08/20/2024 ALBUMIN 3.4 (L) 08/19/2024 ALKPHOS 64 08/19/2024 BILITOT 0.5 08/19/2024 ALT 10 08/19/2024 AST 22 08/19/2024 ASSESSMENTS/PLANS Carole Girard is a 34 y.o. female currently at 25w1d with: Nausea and vomiting Inability to gain weight Dysphagia - plan for EGD for additional evaluation, risks and benefits discussed - continue lifestyle modifications for gastroparesis - recommend PPI at least daily during , await recommendations following EGD - consider METAL TILE LATHER evaluation if no etiology for difficulty swallowing is identified during EGD - anti emetics as needed per admitting provider - IV hydration - history of hypokalemia with normal potassium after replacement where - related changes possibly contributing to symptoms - continue care with OB Chronic constipation - Miralax twice daily (consider increasing to three times daily if not helpful) and bisacodyl 10 mgas needed if patient skips 2 days without a bowel movement - constipation could be contributing to symptoms I discussed the patient's findings and my recommendations with patient and nursing staff Lindsay Gambino APRN 08/20/24 10:20 EDT Cosigned by Blu Alvarado MD at 08/20/2024 4:46 PM EDT Associated attestation - Blu Alvarado MD - 08/20/2024 4:46 PM EDT I have reviewed this documentation and agree. Patient seen and examined in preop, prior to EGD. documented in this encounter Nursing Notes * Pilar Verduzco RN - 08/20/2024 12:58 PM EDT heart tones 147 at 1225 on 08/20/24 for patient to have EGD performed documented in this encounter OR Notes * Brief Op Note - Blu Alvarado MD - 08/20/2024 1:50 PM EDT ESOPHAGOGASTRODUODENOSCOPY Progress Note Carole Girard 08/20/2024 EGD shows normal esophagus. There is mild erosive gastritis in the stomach body. Biopsy taken in the gastric antrum for H. pylori. Duodenum is normal. No hiatal hernia seen. No cause of regurgitationand weight loss identified. >> Await pathology. >> Continue PPI. Blu Alvarado MD Date: 08/20/2024 Time: 14:13 EDT documented in this encounter Miscellaneous Notes * BOOM Notes - Kt Fan DO - 08/19/2024 2:58 PM EDT Images from the original note were not included. [facility] Obstetric History and Physical Referring Provider: Rob Wharton* Chief Complaint Patient presents with Vaginal Bleeding Subjective Patient is a 34 y.o. female currently at 25w1d, who presents with history of vaginal bleeding, abdominal pain, and ongoing nausea and vomiting throughout the . Patient states August 16developed heavy vaginal bleeding with clots for 3 to 4 hours and abdominal pain cramping that slowly subsided. Patient denies any current vaginal bleeding. Denies recent trauma, leaking of fluid, urinary symptoms, reports normal activity. course complicated by 1 prior with2 successful 's, first trimester vaginal bleeding, history of hiatal hernia, history of recurrent hypokalemia during her third trimesters prior pregnancies(etiology unknown). Patient's assistant counsel is in [facility]. She states has never had a EGD only upper GI. Patient previously on omeprazole and Pepcid however was instructed to stop both medicines this past week. The following portions of the patients history were reviewed and updated as appropriate: current medications, allergies, past medical history, past surgical history, past family history, past social history, and problem list . Information: Maternal Labs Blood Type No results found for: ABO Rh Status No results found for: RH Antibody Screen No results found for: ABSCRN Gonnorhea No results found for: GCCX Chlamydia No results found for: CLAMYDCU RPR No results found for: RPR Syphilis Antibody No results found for: SYPHILIS Rubella No results found for: RUBELLAIGGIN Hepatitis B Surface Antigen No results found for: HEPBSAG HIV-1 Antibody No results found for: LABHIV1 Hepatitis C Antibody No results found for: HEPCAB Rapid Urin Drug Screen No results found for: AMPMETHU , BARBITSCNUR , LABBENZSCN , LABMETHSCN , LABOPIASCN , THCURSCR , COCAINEUR , AMPHETSCREEN , PROPOXSCN , BUPRENORSCNU , METAMPSCNUR , OXYCODONESCN , TRICYCLICSCN Group B Strep Culture No results found for: GBSANTIGEN External Results Outside Results - Transcribed From [...] SAB IAB Ectopic Molar Multiple Live Births 2 0 1 0 0 5 # Outcome Date GA Lbr Morgan/2nd Weight Sex Type Anes PTL Lv 9 Current 8 SAB 01/05/24 10w0d SAB Comments: D&C 7 2020 Biochemical 6 Term 08/21/19 M JAGDISH 5 Ectopic 07/20/18 ECTOPIC Comments: D&C 4 Term 04/21/16 F JAGDISH 3 06/19/14 35w0d M CS-Unspec JAGDISH Comments: bradycardia, stat c/s Complications: Other 2 Term 09/05/12 M Vag-Spont JAGDISH 1 Term 08/11/10 F Vag-Spont JAGDISH Obstetric Comments Preg 1-7 = FOB #1 Preg 8-9 = FOB #2 2017: retained products - PPH 14 days , required blood transfusion Patient reports hypokalemia and proteinuria towards the end of each , no preeclampsia Past Medical History: Past Medical History: Diagnosis Date Abnormal Pap smear of cervix 2017 Anxiety GERD (gastroesophageal reflux disease) Hemorrhage after first 24 hours following delivery of placenta 2017 14 days PP with retained products Hiatal hernia 2024 History of transfusion PPH Recurrent loss, antepartum condition or complication Past Surgical History Past Surgical History: Procedure Laterality Date CERVICAL BIOPSY W/ LOOP ELECTRODE EXCISION 2017 SECTION 2015 COLPOSCOPY 2017 DILATATION AND CURETTAGE 2017 PPH with retained products 14 days PP DILATATION AND CURETTAGE x2 for loss EAR TUBES WISDOM TOOTH EXTRACTION Family History: Family History Problem Relation Age of Onset Hypertension Father Heart attack Father Stroke Father Hyperlipidemia Father Diabetes type II Father Diabetes type II Mother Hypertension Mother Liver disease Mother Social History: reports that she has never smoked. She has never used smokeless tobacco. reports no history of alcohol use. reports no history of drug use. General ROS Negative Findings:Headaches, Visual Changes, Epigastric pain, and ROM ROS All other systems have been reviewed and are neg Objective Vital Signs Range for the last 24 hours Temperature: Temp Source: BP: BP: (110)/(70) 110/70 Pulse: Respirations: SPO2: O2 Amount (l/min): O2 Devices Weight: Weight: [71.7 kg (158 lb)-72.1 kg (159 lb)] 71.7 kg (158 lb) Physical Examination: General: alert, appears stated age, and cooperative Skin: normal HEENT: Lungs: clear to auscultation bilaterally Heart: Gastrointestinal: Soft, gravities, guarding benign exam Lower Extremities: No edema, no calf tenderness : Normal external genitalia, speculum exam revealed vaginal vault clear no blood noted cervix parous, no lesions noted no blood noted the cervical os appeared closed. Musculoskeletal: Neuro: No focal deficits noted. Presentation: Cervix: Exam by: Method: sterile vaginal exam performed, sterile speculum exam performed Dilation: Closed Effacement: TH Station: Ne NO blood noted Heart Rate Assessment Method: Beats/min: Baseline: Varibility: Accels: Decels: Tracing Category: NST-indications vaginal bleeding rotation reactive, moderate bili, accelerations present 10 x 10, no decels onset 1423 endtime 1500 no ctx Uterine Assessment Method: Frequency (min): Ctx Count in 10 min: Duration: Intensity: Intensity by IUPC: Resting Tone: Resting Tone by IUPC: [place] Units: Laboratory Results: Lab Results (last 24 hours) No results found for the last 24 hours. Radiology Review: Imaging Results (Last 24 Hours) No results found for the last 24 hours. Other Studies: Assessment & Plan History of BOOM Course / Assessment: 1. All lab and imaging results listed above have been reviewed by me. 2. Intrauterine at 25w1d gestation with reactive status. 3. History of vaginal bleeding (heavy passing clots, August 16) no current bleeding noted 4. History of x 1 with 2 subsequent 's 5. History of hiatal hernia diagnosed by upper GI 6. History of recurrent third trimester hypokalemia 7. Ongoing nausea and vomiting intermittent throughout the with no weight gain. Plan: IV access, labs, urinalysis, IV hydration, thiamine/multivitamin PDC ultrasound, and reevaluate. GIconsult if patient is admitted. 2. 3. Plan of care has been reviewed with patient. 4. Risks, benefits of treatment plan have been discussed. 5. All questions have been answered. 6. Kt Fan DO 08/19/2024 14:58 EDT documented in this encounter Plan of Treatment Upcoming Encounters Date Type Department Care Team (Late st Contact Info) Description 01/20/2025 3:30 PM EST Office Visit [facility]STRO[facility]OLOGY [address] [facility] [phone] Robbin Escalante MD [address] [facility] [address] documented as of this encounter Procedures Procedure Name Priority Date/Time Associated Diagnosis Comments TISSUE PATHOLOGY EXAM Routine 08/20/2024 1:55 PM EDT Dysphagia, unspecified type WV ESOPHAGOGASTRODUODENOSCOP Y TRANSORAL DIAGNOSTIC 08/20/2024 1:44 PM EDT Dysphagia, unspecified type UPPER GI ENDOSCOPY 08/20/2024 1:09 PM EDT BASIC METABOLIC PANEL STAT 08/20/2024 5:25 AM EDT POTASSIUM STAT 08/19/2024 8:53 PM EDT ABORH 2ND SPECIMEN VERIFICATION STAT 08/19/2024 4:34 PM EDT NONSTRESS TEST Routine 08/19/2024 4:17 PM EDT [facility] Routine 08/19/2024 3:25 PM EDT URINALYSIS, MICROSCOPIC ONLY STAT 3:02 PM EDT URINALYSIS W/ MICROSCOPIC IF INDICATED (NO CULTURE) STAT 08/19/2024 3:02 PM EDT CBC WITH AUTO DIFFERENTIAL STAT 08/19 3:02 PM EDT PROTEIN / CREATININE RATIO, URINE Add-On 08/19/2024 3:02 PM EDT CBC AND DIFFERENTIAL STAT 08/19/2024 3:02 PM EDT TYPE AND SCREEN STAT 08/19/2024 3:02 PM EDT MAGNESIUM Add-On 08/19/2024 3:02 PM EDT LIPASE STAT 08/19/2024 3:02 PM EDT AMYLASE STAT 08/19/2024 3:02 PM EDT COMPREHENSIVE METABOLIC PANEL STAT 3:02 PM EDT NONSTRESS TEST Routine 08/19/2024 2:33 PM EDT documented in this encounter Results * Tissue Pathology Exam (08/20/2024 1:55 PM EDT) Case Report Surgical Pathology Report Case: [id number] Authorizing Provider: Blu Alvarado MD Collected: 08/20/2024 01:55 PM Ordering Location: [facility] Received: 08/20/2024 02:14 PM ENDO SUITES Pathologist: Khalida Rhoades DO Specimen: Gastric, Antrum, antrum bx for path 08/22/2024 9:18 AM EDT [facility] Clinical Information Dysphagia, unspecified type 08/22/2024 9:18 AM EDT [facility] Final Diagnosis Stomach, antrum, biopsy: 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 pylori is negative (no organisms are identified) Negative for intestinal metaplasia, dysplasia, or malignancy 08/22/2024 9:18 AM EDT [facility] at 0918 EDT Gross Description 1. Gastric, Antrum. Received in formalin labeled antrum biopsy is a 0.4 x 0.2 x 0.2 cm pink-see soft tissue fragment submitted entirely in a single cassette. HDM 08/22/2024 9:18 AM EDT [facility] Microscopic Description The slides are reviewed and demonstrate histopathologic features supporting the above rendered diagnosis. 08/22/2024 9:18 AM EDT [facility] Tissue Pyloric antrum structure / Unknown 08/20/2024 1:55 PM EDT 08/20/2024 2:14 PM EDT us Blu Alvarado MD PATHOLOGY/CYTOLOGY ORDERABLES Final Result [facility]
[address] [place] [address], * Upper GI Endoscopy (08/20/2024 1:09 PM EDT) us Blu Alvarado MD INTERFACE NEEDS Final Result * (ABNORMAL) Basic Metabolic Panel (08/20/2024 5:25 AM EDT) Glucose 84 65 - 99 mg/dL 08/20/2024 6:13 AM EDT [facility] BUN 2.3(L) 6.0 - 20.0 mg/dL 08/20/2024 6:13 AM EDT [facility] Creatinine 0.51(L) 0.57 - 1.00 mg/dL 08/20/2024 6:13 AM EDT [facility] Sodium 139 136 - 145 mmol/L 08/20/2024 6:13 AM EDT [facility] Potassium 3.5 3.5 - 5.2 mmol/L 08/20/2024 6:13 AM EDT [facility] Chloride 109(H) 98 - 107 mmol/L 08/20/2024 6:13 AM EDT [facility] CO2 23.5 22.0 - 29.0 mmol/L 08/20/2024 6:13 AM EDT [facility] Calcium 7.8(L) 8.6 - 10.5 mg/dL 08/20/2024 6:13 AM EDT [facility] BUN/Creatinine Ratio 4.5(L) 7.0 - 25.0 08/20/2024 6:13 AM EDT [facility] Anion Gap 6.5 5.0 - 15.0 mmol/L 08/20/2024 6:13 AM T [facility] eGFR 126.6 >60.0 mL/min/1.7 3 08/20/2024 6:13 AM T [facility] Blood Venipuncture / Unknown 08/20/2024 5:25 AM EDT 08/20/2024 5:46 AM EDT [facility] - 08/20/2024 6:13 AM EDT GFR Categories in Chronic Kidney Disease (CKD) GFR Category GFR (mL/min/1.73) Interpretation G1 90 or greater Normal or high (1) G2 60-89 Mild decrease (1) G3a 45-59 Mild to moderate decrease G3b 30-44 Moderate to severe decrease G4 15-29 Severe decrease G5 14 or less Kidney failure (1)In the absence of evidence of kidney disease, neither GFR category G1 or G2 fulfill the criteria for CKD. eGFR calculation 2020 CKD-EPI creatinine equation, which does not include race as a factor Hernando Vargas MD LAB BLOOD ORDERABLES Final Resu lt Performing Organization Address City/[facility]/ZIP Co de Phone Number [facility]
[address] [place] [address], * (ABNORMAL) Potassium (08/19/2024 8:53 PM EDT) Potassium 2.7(L) 3.5 - 5.2 mmol/L 08/19/2024 9:20 PM EDT [facility] Blood Venipuncture / Unknown 08/19/2024 8:53 PM EDT 08/19/2024 9:04 PM EDT Kt Fan DO LAB BLOOD ORDERABLES Final Result Performing Organization Address [facility] Co de Phone Number [facility]
[address] [place] [address], * ABO RH Specimen Verification (08/19/2024 4:34 PM EDT) ABO Type O 08/19/2024 7:39 PM EDT [facility] RH type Positive 08/19/2024 7:39 PM EDT [facility] Blood Venipuncture / Unknown 08/19/2024 4:34 PM EDT 08/19/2024 4:53 PM EDT Rob Wharton MD BLOOD BANK TEST ORDER FRANCO Final Result Performing Organization Address City/[facility]/ZIP Co de Phone Number [facility]
[address] [place] [address], * Replaced by [facility] (08/19/2024 3:25 PM EDT) Anatomical Region Laterality Modality Ultrasound 08/19/2024 3:09 PM EDT Narrative 08/19/2024 4:54 PM EDT PAT NAME: CAROLE GIRARD MED REC#: [id number] DA: 1990 PAT GEND: F PAT TYPE: E EXAM TRAVIS: [id number] REF PHYS ROB WHARTON Comparison Studies The findings of this study are compared to the prior ultrasound study dated 07/22/24 Patient Status Inpatient Indication ======== History of c/s x1. History of . Vaginal bleeding. Maternal Assessment Height 162 cm Height (ft) 5 ft Height (in) 4 in Weight 72 kg Weight (lb) 158 lb BMI 27.31 kg/m Method ======= Transabdominal ultrasound examination. View: Limited by patient body habitus ========= Love . Number of fetuses: 1 Dating ====== Method of dating: based on stated DUSTY GA by prior assessment 25 w + 1 d DUSTY by prior assessment: 12/01/2024 Ultrasound examination on: 08/19/2024 GA by U/S based upon: AC, BPD, Femur, HC GA by U/S 24 w + 2 d DUSTY by U/S: 12/07/2024 Previous dating: based on stated DUSTY, selected on 07/22/2024 Agreed DUSTY of previous datin12/01/2024 Assigned: based on stated DUSTY, selected on 08/19/2024 Assigned GA 25 w + 1 d Assigned DUSTY: 12/01/2024 length 280 d Biometry Standard BPD 57.6 mm 23w 4d 5% Hadlock OFD 81.6 mm 26w 4d 88% Jamal HC 225.7 mm 24w 4d 13% Hadlock Cerebellum tr 28.9 mm 25w 2d 62% Hill AC 194.9 mm 24w 1d 15% Hadlock Femur 44.9 mm 24w 6d 27% Hadlock Humerus 42.3 mm 25w 3d 50% Jamal HC / AC 1.16 EFW 696 g 24w 2d 16% Hadlock EFW (lb) 1 lb EFW (oz) 9 oz EFW by: Hadlock ([id number]) Extended Cav. septi pel. tr 4.7 mm Brass Burnisher 3.8 mm CM 7.5 mm 84% Nicolaides Head / Face / Neck Cephalic index 0.71 <1% Nicolaides Extremities / Bony Struc FL / BPD 0.78 FL / HC 0.20 FL / AC 0.23 Other Structures FHR 122 bpm General Evaluation Cardiac activity present. FHR 122 bpm. movements present. Presentation breech, funic . Placenta Placental site: anterior. Umbilical cord Cord vessels: 3 vessel cord. Amniotic fluid Amount of AF: normal. MVP 4.1 cm. ANURADHA 13.0 cm. Q1 4.1 cm, Q2 2.4 cm, Q3 2.7 cm, Q4 3.8 cm. Anatomy Cranium: Normal Cavum septi pellucidi: Normal Cerebellum: Normal Cisterna magna: Normal Head / Neck Rt lateral ventricle: Normal Lt lateral ventricle: Normal Lips: Appear normal 4-chamber view: Appears normal LVOT view: Appears normal Heart / Thorax 3-vessel view: Appears normal 9-[id number] view: Appears normal Stomach: Appears normal Kidneys: Appears normal Bladder: Appears normal Gender: female Wants to know gender: yes Maternal Structures Uterus / Cervix Cervix: Visualized Approach: Transabdominal Cervical length 39.9 mm Doppler Arterial Umbilical A PI 1.01 32% Colt Umbilical A RI 0.65 28% Colt Umbilical A PS 25.46 cm/s <1% Ebbing Umbilical A ED 8.82 cm/s Umbilical A TAmax 16.45 cm/s <1% Ebbing Umbilical A MD 8.47 cm/s Umbilical A S / D 2.89 24% Colt Umbilical A HR 128 bpm Impression Carole presented to [facility] today with complaints of vaginal bleeding. On today's exam, SIUP is noted in breech presentation with biometry measuring consistent with dates. EFW overall measures at the 16th percentile. AC measures at the 15th percentile. There is a normal amount of amniotic fluid. Placenta is anterior. There is no obvious abruption or marginal sinus bleed visualized. Cervical length appears adequate. Limited but normal appearing anatomy is visualized. Recommendation Recommend follow-up in your office in 4wks for growth. Coding ======= Description: [id number] Follow Up Mechanical Facilities Technician: RT Annetta Hartmann , [facility] Physician: Jo Chappell MD Electronically signed by: Jo Chappell MD at: 16:54 Procedure Note Jo Chappell MD - 08/19/2024 PAT NAME: CAROLE GIRARD MED REC#: [id number] DA: 1990 PAT GEND: F PAT TYPE: E EXAM TRAVIS: [id number] REF PHYS ROB WHARTON Comparison Studies The findings of this study are compared to the prior ultrasound studydated 07/22/24 Patient Status Inpatient Indication ======== History of c/s x1. History of . Vaginal bleeding. Maternal Assessment Vliqsr407 cm Height (ft)5 ft Height (in)4 in Ienmkg21 kg Weight (lb)158 lb BMI27.31 kg/m Method ======= Transabdominal ultrasound examination. View: Limited by patient bodyhabitus ========= Love . Number of fetuses: 1 Dating ====== Method of dating:based on stated DUSTY GA by prior ctamaadlye14 w + 1 d DUSTY by prior assessment:12/01/2024 Ultrasound examination on:08/19/2024 GA by U/S based upon:AC, BPD, Femur, HC GA by U/S24 w + 2 d DUSTY by U/S:12/07/2024 Previous dating:based on stated DUSTY, selected on 07/22/2024 Agreed DUSTY of previous datin12/01/2024 Assigned:based on stated DUSTY, selected on 08/19/2024 Assigned GA25 w + 1 d Assigned DUSTY:12/01/2024 [id number] d Biometry Standard BPD57.6 mm 23w 4d 5% Hadlock OFD81.6 mm 26w 4d 88% Jamal HC225.7 mm 24w 4d 13% Hadlock Cerebellum tr28.9 mm 25w 2d 62% Hill AC194.9 mm 24w 1d 15% Hadlock Femur44.9 mm 24w 6d 27% Hadlock Njsalwy37.3 mm 25w 3d 50% Jamal HC / AC1.16 FCE815 g 24w 2d 16% Hadlock EFW (lb)1 lb EFW (oz)9 oz EFW by:Hadlock ([id number]) Extended Cav. septi pel. tr4.7 mm Vp3.8 mm CM7.5 mm 84% Nicolaides Head / Face / Neck Cephalic index0.71 <1% Nicolaides Extremities / Bony Struc FL / BPD0.78 FL / HC0.20 FL / AC0.23 Other Structures [id number] bpm General Evaluation Cardiac activity present. FHR 122 bpm. movements present. Presentation breech, funic . Placenta Placental site: anterior. Umbilical cord Cord vessels: 3 vessel cord. Amniotic fluid Amount of AF: normal. MVP 4.1 cm. ANURADHA 13.0 cm. Q1 4.1 cm,Q2 2.4 cm, Q3 2.7 cm, Q4 3.8 cm. Anatomy Cranium:Normal Cavum septi pellucidi:Normal Cerebellum:Normal Cisterna magna:Normal Head / Neck Rt lateral ventricle:Normal Lt lateral ventricle:Normal Lips:Appear normal 4-chamber view:Appears normal LVOT view:Appears normal Heart / Thorax 3-vessel view:Appears normal 5-[id number]-xzsqoan view:Appears normal Stomach:Appears normal Kidneys:Appears normal Bladder:Appears normal Gender:female Wants to know gender:yes Maternal Structures Uterus / Cervix Cervix:Visualized Approach:Transabdominal Cervical dpwyla88.9 mm Doppler Arterial Umbilical A PI1.01 32% Colt Umbilical A RI0.65 28% Colt Umbilical A PS25.46 cm/s <1% Ebbing Umbilical A ED8.82 cm/s Umbilical A TAmax16.45 cm/s <1% Ebbing Umbilical A MD8.47 cm/s Umbilical A S / D2.89 24% Colt Umbilical A HR128 bpm Impression Carole presented to [facility] today with complaints of vaginal bleeding. On today's exam, SIUP is noted in breech presentation with biometrymeasuring consistent with dates. EFW overall measures at the 16thpercentile. AC measures at the 15th percentile. There is a normal amount of amniotic fluid. Placentais anterior. There is no obvious abruption or marginal sinus bleedvisualized. Cervical length appears adequate. Limited but normal appearing anatomy is visualized. Recommendation Recommend follow-up in your office in 4wks for growth. Coding ======= Description:[id number] Follow Up Mechanical Facilities Technician: RT Annetta Hartmann , RDMS Physician: Jo Chappell MD Electronically signed by: Jo Chappell MD at: 16:54 us Kt Fan DO G US ORDERABLES Final Res ult * Protein / Creatinine Ratio, Urine - Urine, Clean Catch (08/19/2024 3:02 PM EDT) Protein/Creati nine Ratio, Urine 126.1 0.0 - 200.0 mg/G Crea 08/20/2024 12:47 AM EDT [facility] Creatinine, Urine 148.3 mg/dL 08/20/2024 12:47 AM EDT [facility] Total Protein, Urine 18.7 mg/dL 08/20/2024 12:47 AM EDT [facility] Urine Urine specimen obtained by clean catch procedure / Unknown Collection / Unknown 08/19/2024 3:02 PM EDT 08/19/2024 4:26 PM EDT Kt Fan URINE ORDERABLES Final Resu lt [facility]
[address] [place] [address], [place] [phone] * (ABNORMAL) Magnesium (08/19/2024 3:02 PM EDT) Magnesium 1.5(L) 1.6 - 2.6 mg/dL 08/19/2024 5:12 PM EDT [facility] Blood Line / Unknown 08/19/2024 3: 02 PM EDT 08/19/2024 3:10 PM EDT Kt Fan DO LAB BLOOD ORDERABLES Final Result [facility]
[address] [place] [address], [place] [phone] * Urinalysis, Microscopic Only - Urine, Clean Catch (08/19/2024 3:02 PM EDT) RBC, UA 0-2 None Seen, 0-2 /HPF 08/19/2024 3:33 PM EDT [facility] WBC, UA 0-2 None Seen, 0-2 /HPF 08/19/2024 3:33 PM EDT [facility] Bacteria, UA None Seen None Seen /HPF 08/19/2024 3:33 PM EDT [facility] Squamous Epithelial Cells, UA 0-2 None Seen, 0-2 /HPF 08/19/2024 3:33 PM EDT [facility] Hyaline Casts, UA None Seen None Seen /LPF 08/19/2024 3:33 PM EDT [facility] Methodology Automated Microscopy 08/19/2024 3:33 PM EDT [facility] Urine Urine specimen obtained by clean catch procedure / Unknown Collection / Unknown 08/19/2024 3:02 PM EDT 08/19/2024 3:13 PM EDT us Kt Fan DO URINE ORDERABLES Final Resu lt [facility]
[address] [place] [address], * (ABNORMAL) CBC Auto Differential (08/19/2024 3:02 PM EDT) WBC 9.19 3.40 - 10.80 10*3/mm3 08/19/2024 3:23 PM EDT [facility] RBC 3.58(L) 3.77 - 5.28 10*6/mm3 08/19/2024 3:23 PM EDT [facility] Hemoglobin 10.5(L) 12.0 - 15.9 g/dL 08/19/2024 3:23 PM EDT [facility] Hematocrit 31.4(L) 34.0 - 46.6 % 08/19/2024 3:23 PM EDT [facility] MCV 87.7 79.0 - 97.0 fL 08/19/2024 3:23 PM EDT [facility] MCH 29.3 26.6 - 33.0 pg 08/19/2024 3:23 PM EDT [facility] MCHC 33.4 31.5 - 35.7 g/dL 08/19/2024 3:23 PM EDT [facility] RDW 13.4 12.3 - 15.4 % 08/19/2024 3:23 PM EDT [facility] RDW-SD 42.4 37.0 - 54.0 fl 08/19/2024 3:23 PM EDT [facility] MPV 12.0 6.0 - 12.0 fL 08/19/2024 3:23 PM EDT [facility] Platelets 241 140 - 450 10*3/mm3 08/19/2024 3:23 PM EDT [facility] Neutrophil % 66.8 42.7 - 76.0 % 08/19/2024 3:23 PM EDT [facility] Lymphocyte % 24.4 19.6 - 45.3 % 08/19/2024 3:[facility] Monocyte % 7.6 5.0 - 12.0 % 08/19/2024 3:23 PM [facility] Eosinophil % 0.7 0.3 - 6.2 % 08/19/2024 3:23 PM E[facility] [facility] Basophil % 0.2 0.0 - 1.5 % 08/19/2024 3:23 PM [facility] Immature Grans % 0.3 0.0 - 0.5 % 08/19/2024 3:23 PM [facility] Neutrophils, Absolute 6.14 1.70 - 7.00 10*3/mm3 08/19/2024 3:23 PM [facility] Lymphocytes, Absolute 2.24 0.70 - 3.10 10*3/mm3 08/19/2024 3:23 PM EDT [facility] Monocytes, Absolute 0.70 0.10 - 0.90 10*3/mm3 08/19/2024 3:23 PM EDT [facility] Eosinophils, Absolute 0.06 0.00 - 0.40 10*3/mm3 08/19/2024 3:23 PM [facility] Basophils, Absolute 0.02 0.00 - 0.20 10*3/mm3 08/19/2024 3:23 PM EDT [facility] Immature Grans, Absolute 0.03 0.00 - 0.05 10*3/mm3 08/19/2024 3:23 PM EDT [facility] nRBC 0.0 0.0 - 0.2 /100 WBC 08/19/2024 3:23 PM EDT [facility] Blood Line / Unknown 08/19/2024 3: 02 PM EDT 08/19/2024 3:10 PM EDT Kt Fan DO LAB BLOOD ORDERABLES Final Result [facility]
[address] [place] [address], * (ABNORMAL) Urinalysis With Microscopic If Indicated (No Culture) - Urine, Clean Catch (08/19/2024 3:02 PM EDT) Color, UA Yellow Yellow, Straw 08/19/2024 3:33 PM EDT [facility] Appearance, UA Clear Clear 08/19/2024 3:33 PM EDT [facility] pH, UA >=9.0(H) 5.0 - 8.0 08/19/2024 3:33 PM EDT [facility] Specific [place], UA 1.018 1.005 - 1.030 08/19/2024 3:33 PM EDT [facility] Glucose, UA Negative Negative 08/19/2024 3:33 PM EDT [facility] Ketones, UA 15 mg/dL (1+)(A) Negative 08/19/2024 3:33 PM EDT [facility] Bilirubin, UA Negative Negative 08/19/2024 3:33 PM EDT [facility] Blood, UA Negative Negative 08/19/2024 3:33 PM EDT [facility] Protein, UA 30 mg/dL (1+)(A) Negative 08/19/2024 3:33 PM EDT [facility] Leuk Esterase, UA Negative Negative 08/19/2024 3:33 PM EDT [facility] Nitrite, UA Negative Negative 08/19/2024 3:33 PM EDT [facility] Urobilinogen, UA 1.0 E.U./dL 0.2 - 1.0 E.U./dL 08/19/2024 3:33 PM EDT [facility] Urine Urine specimen obtained by clean catch procedure / Unknown Collection / Unknown 08/19/2024 3:02 PM EDT 08/19/2024 3:13 PM EDT us Kt Fan DO URINE ORDERABLES Final Resu lt Performing Organization Address City/[facility]/ZIP Co de Phone Number [facility]
[address] [place] [address], [place] [phone] * Amylase (08/19/2024 3:02 PM EDT) Amylase 73 28 - 100 U/L 08/19/2024 3:36 PM EDT [facility] Blood Line / Unknown 08/19/2024 3: 02 PM EDT 08/19/2024 3:10 PM EDT us Kt Fan DO LAB BLOOD ORDERABLES Final Result Performing Organization Address [facility] Co de Phone Number [facility]
[address] [place] [address], [place] [phone] * Lipase (08/19/2024 3:02 PM EDT) Lipase 13 13 - 60 U/L 08/19/2024 3:36 PM EDT [facility] Blood Line / Unknown 08/19/2024 3: 02 PM EDT 08/19/2024 3:10 PM EDT us Kt Fan DO LAB BLOOD ORDERABLES Final Result Performing Organization Address City/[facility]/ZIP Co de Phone Number [facility]
[address] [place] [address], * (ABNORMAL) Comprehensive Metabolic Panel (08/19/2024 3:02 PM EDT) [facility] Glucose 75 65 - 99 mg/dL 08/19/2024 3:38 PM EDT [facility] BUN 3.6(L) 6.0 - 20.0 mg/dL 08/19/2024 3:38 PM EDT [facility] Creatinine 0.51(L) 0.57 - 1.00 mg/dL 08/19/2024 3:38 PM EDT [facility] Sodium 137 136 - 145 mmol/L 08/19/2024 3:38 PM EDT [facility] Potassium 2.6(LL) 3.5 - 5.2 mmol/L 08/19/2024 3:38 PM EDT [facility] Comment:Specimen hemolyzed. Result may be falsely elevated. Chloride 99 98 - 107 mmol/L 08/19/2024 3:38 PM EDT [facility] CO2 24.2 22.0 - 29.0 mmol/L 08/19/2024 3:38 PM EDT [facility] Calcium 8.8 8.6 - 10.5 mg/dL 08/19/2024 3:38 PM EDT [facility] Total Protein 6.6 6.0 - 8.5 g/dL 08/19/2024 3:38 PM EDT [facility] Albumin 3.4(L) 3.5 - 5.2 g/dL 08/19/2024 3:38 PM EDT [facility] ALT (SGPT) 10 1 - 33 U/L 08/19/2024 3:38 PM EDT [facility] AST (SGOT) 22 1 - 32 U/L 08/19/2024 3:38 PM EDT [facility] Alkaline Phosphatase 64 39 - 117 U/L 08/19/2024 3:38 PM EDT [facility] Total Bilirubin 0.5 0.0 - 1.2 mg/dL 08/19/2024 3:38 PM EDT [facility] Globulin 3.2 gm/dL 08/19/2024 3:38 PM EDT [facility] Comment:Calculated Result A/G Ratio 1.1 g/dL 08/19/2024 3:38 PM EDT [facility] BUN/Creatinine Ratio 7.1 7.0 - 25.0 08/19/2024 3:38 PM EDT [facility] Anion Gap 13.8 5.0 - 15.0 mmol/L 08/19/2024 3:38 PM EDT [facility] eGFR 126.6 >60.0 mL/min/1.7 3 08/19/2024 3:38 PM EDT [facility] Blood Line / Unknown 08/19/2024 3: 02 PM EDT 08/19/2024 3:10 PM EDT Narrative [facility] - 08/19/2024 3:38 PM EDT GFR Categories in Chronic Kidney Disease (CKD) GFR Category GFR (mL/min/1.73) Interpretation G1 90 or greater Normal or high (1) G2 60-89 Mild decrease (1) G3a 45-59 Mild to moderate decrease G3b 30-44 Moderate to severe decrease G4 15-29 Severe decrease G5 14 or less Kidney failure (1)In the absence of evidence of kidney disease, neither GFR category G1 or G2 fulfill the criteria for CKD. eGFR calculation 2020 CKD-EPI creatinine equation, which does not include race as a factor Kt Fan DO LAB BLOOD ORDERABLES Final Result [facility]
[address] [place] [address], * Type & Screen (08/19/2024 3:02 PM EDT) ABO Type O 08/19/2024 3:51 PM EDT [facility] RH type Positive 08/19/2024 3:51 PM EDT [facility] Antibody Screen Negative 08/19/2024 3:51 PM EDT [facility] T&S Expiration Date 08/22/2024 11:59:59 PM 08/19/2024 3:51 PM EDT [facility] Blood Line / Unknown 08/19/2024 3: 02 PM EDT 08/19/2024 3:15 PM EDT Kt Fan DO BLOOD BANK TEST ORDERABLES Edited Result - Final [facility]
[address] [place] [address], documented in this encounter Visit Diagnoses Diagnosis Dysphagia- Primary Dysphagia, unspecified type History of Other postprocedural status Hypokalemia due to excessive gastrointestinal loss of potassium documented in this encounter Admitting Diagnoses Diagnosis Dysphagia Hypokalemia due to excessive gastrointestinal loss of potassium documented in this encounter Administered Medications Inactive Administered Medications - up to 3 most recent administrations Medication Order MAR Action Action Date Dose Rate Site bisacodyl (DULCOLAX) EC tablet 10 mg 10 mg, Oral, Daily PRN, Constipation, Starting on Mon08/20/24 at 1129, If patient skips 2 days without a bowel movement, recommend bisacodyl 10 mg. Do not crush or chew the capsules or tablets. The drug may not work as designed if the capsule or tablet is crushed or chewed. Swallow whole. Swallow whole. Do not crush, split, or chew tablet. busPIRone (BUSPAR) tablet 5 mg 5 mg, Oral, 3 Times Daily, First dose on Mon08/20/24 at 1600, Caution: Look alike/sound alike drug alert. Take with food. Avoid grapefruit juice. Given 08/20/2024 3:49 PM EDT 5 mg dextrose 5 % and lactated Ringer's infusion 125 mL/hr, Intravenous, Continuous, Starting on Mon08/19/24 at 1830, For 1 day New Bag 08/20/2024 10:43 AM EDT 125 mL/hr 125 mL/hr New Bag 08/20/2024 4:38 AM EDT 125 mL/hr 125 mL/hr New Bag 08/19/2024 9:51 PM EDT 125 mL/hr 125 mL/hr diphenhydrAMINE (BENADRYL) injection 25 mg 25 mg, Intravenous, Once, On Mon08/20/24 at 0645, For 1 dose, Caution: Look alike/sound alike drug alert. This med may be ordered in other forms and routes. Before giving verify the last time the drug was given by any route/form. Given 08/20/2024 6:08 AM EDT 25 mg Infuvite Adult 10 mL in sodium chloride 0.9 % 1,000 mL IVPB Intravenous, at 500 mL/hr, Administer over 2 Hours, Daily, First dose on Mon08/19/24 at 1800 New Bag 08/20/2024 8:38 AM EDT 500 mL/hr New Bag 08/19/2024 5:43 PM EDT 500 mL/hr lactated ringers bolus 1,000 mL 1,000 mL, Intravenous, at 2,000 mL/hr, Administer over 0.5 Hours, Once, On Mon08/19/24 at 1530, For 1 dose Restarted 08/19/2024 3:55 PM EDT 2000 mL/hr New 08/19/2024 3:02 PM EDT 1,000 mL 2000 mL/hr ondansetron (ZOFRAN) injection 4 mg 4 mg, Intravenous, Every 6 Hours PRN, Nausea, Vomiting, Starting on Mon08/19/24 at 1827, If multiple N/V medications ordered, use in the following order: Ondansetron, Prochlorperazine, Promethazine. Use PO unless patient refuses or patient unable to swallow. Given 08/20/2024 6:08 AM EDT 4 mg Given 08/19/2024 7:03 PM EDT 4 mg pantoprazole (PROTONIX) injection 40 mg 40 mg, Intravenous, Every 12 Hours Scheduled, First dose on Mon08/19/24 at 1715, Dilute with 10 mL of 0.9% NaCl and give IV push over 2 minutes., Indications: Gastroesophageal Reflux DiseaseIndications:Gastroesophageal Reflux Disease Given 08/20/2024 8:38 AM EDT 40 mg Given 08/19/2024 5:13 PM EDT 40 mg polyethylene glycol (MIRALAX) packet 17 g 17 g, Oral, 2 Times Daily, First dose on Mon08/20/24 at 1600, Use 4-8 ounces of water, tea, or juice for each 17 gram dose. potassium chloride 10 mEq in 100 mL IVPB 10 mEq, Intravenous, at 100 mL/hr, Administer over 60 Minutes, Every 1 Hour, First dose on Mon08/19/24 at 1700, For 6 doses, OUTPATIENT/NON-MONITORED UNITS: Potassium Chloride standard bolus infusion rate is a maximum of 10 mEq/hr on unmonitored patients MONITORED UNITS: Potassium Chloride standard bolus infusion rate is a maximum of 20 mEq/hr on ECG monitored patients ONLY New Bag 08/20/2024 12:42 AM EDT 10 mEq 10 0 mL/hr Bag 08/19/2024 11:33 PM EDT 10 mEq 100 mL/hr Bag 08/19/2024 10:35 PM EDT 10 mEq 100 mL/hr potassium chloride 10 mEq in 100 mL IVPB 10 mEq, Intravenous, at 100 mL/hr, Administer over 60 Minutes, Every 1 Hour, First dose on Mon08/20/24 at 1015, For 4 doses, OUTPATIENT/NON-MONITORED UNITS: Potassium Chloride standard bolus infusion rate is a maximum of 10 mEq/hr on unmonitored patients MONITORED UNITS: Potassium Chloride standard bolus infusion rate is a maximum of 20 mEq/hr on ECG monitored patients ONLY New Bag 08/20/2024 11:48 AM EDT 10 mEq 10 0 mL/hr New Bag 08/20/2024 10:47 AM EDT 10 mEq 100 mL/hr Potassium Replacement - Follow Nurse / BPA Driven Protocol Open Order & Select S Electrolyte Replacement Protocol Algorithm to View Details Sod Citrate-Citric Acid (BICITRA) oral solution 30 mL 30 mL, Oral, Once, On Mon08/20/24 at 1330, For 1 dose Given 08/20/2024 1:42 PM EDT 30 mL sodium chloride 0.9 % flush 1-10 mL 1-10 mL, Intravenous, As Needed, Line Care, Starting on Mon08/19/24 at 1432 sodium chloride 0.9 % flush 10 mL 10 mL, Intravenous, Every 12 Hours Scheduled, First dose on Mon08/19/24 at 2100 sodium chloride 0.9 % infusion 40 mL 40 mL, Intravenous, at 100 mL/hr, As Needed, Line Care, Starting on Mon08/19/24 at 1432, Following administration of an IV intermittent medication, flush line with 40mL NS at 100mL/hr. sucralfate (CARAFATE) tablet 1 g 1 g, Oral, 4 Times Daily Before Meals & Nightly, First dose on Mon08/20/24 at 1730, If for oral administration, take on empty stomach. If for rectal enema, dissolve 1 tablet in 10 ml water. Retain enema for as long as possible or for at least 5 minutes. For nasogastric or slurry administration: 1. Remove the cap and plunger from a [address] the sucralfate tablet inside the syringe 3. Replace the plunger so that minimal airspace exists around the tablet 4. Draw up approximately 20 mL water into the syringe 5. Replace the syringe cap 6. Allow the syringe to stand for ~5 minutes, shaking occasionally 7. Shake the suspension and administer directly from the syringe into the tube Flush tube before and after administration thiamine (B-1) injection 200 mg 200 mg, Intravenous, Once, On Mon08/19/24 at 1530, For 1 dose, Doses of up to 250mg, give over 1-2 minutes (IV push). Doses 250mg and above, give over 30 minutes. Given 08/19/2024 4:04 PM EDT 200 mg documented in this encounter Active and Recently Administered Medications Times are shown in EDT. Scheduled Medication Order 08/18/2024 08/19/2024 08/20/2024 busPIRone (BUSPAR) tablet 5 mg 5 mg, Oral, 3 Times Daily, First dose on Mon08/20/24 at 1600, Caution: Look alike/sound alike drug alert. Take with food. Avoid grapefruit juice. 1549 (Given - Provider: Pilar Verduzco RN) diphenhydrAMINE (BENADRYL) injection 25 mg (COMPLETED) 25 mg, Intravenous, Once, On Mon08/20/24 at 0645, For 1 dose, Caution: Look alike/sound alike drug alert. This med may be ordered in other forms and routes. Before giving verify the last time the drug was given by any route/form. 0608 (Given - Provider: Yun Bonnie, RN) Infuvite Adult 10 mL in sodium chloride 0.9 % 1,000 mL IVPB Intravenous, at 500 mL/hr, Administer over 2 Hours, Daily, First dose on Mon08/19/24 at 1800 1743 (New Bag - Provider: Pilar Verduzco RN) 0838 (New Bag - Provider: Pilar Verduzco RN) lactated ringers bolus 1,000 mL (COMPLETED) 1,000 mL, Intravenous, at 2,000 mL/hr, Administer over 0.5 Hours, Once, On Mon08/19/24 at 1530, For 1 dose 1502 (New Bag - Provider: Nneka Cross RN)1510 (Stopped - Provider: Nneka Cross, RN)1555 (Restarted - Provider: Nneka Cross RN) pantoprazole (PROTONIX) injection 40 mg 40 mg, Intravenous, Every 12 Hours Scheduled, First dose on Mon08/19/24 at 1715, Dilute with 10 mL of 0.9% NaCl and give IV push over 2 minutes., Indications: Gastroesophageal Reflux Disease 1713 (Given - Provider: Pilar Verduzco RN) 0838 (Given - Provider: Pilar Verduzco RN) polyethylene glycol (MIRALAX) packet 17 g 17 g, Oral, 2 Times Daily, First dose on Mon08/20/24 at 1600, Use 4-8 ounces of water, tea, or juice for each 17 gram dose. 1600 (Due) potassium chloride 10 mEq in 100 mL IVPB (COMPLETED) 10 mEq, Intravenous, at 100 mL/hr, Administer over 60 Minutes, Every 1 Hour, First dose on Mon08/19/24 at 1700, For 6 doses, OUTPATIENT/NON-MONITORED UNITS: Potassium Chloride standard bolus infusion rate is a maximum of 10 mEq/hr on unmonitored patients MONITORED UNITS: Potassium Chloride standard bolus infusion rate is a maximum of 20 mEq/hr on ECG monitored patients ONLY 1823 (New Bag - Provider: Pilar Verduzco RN - Comment: waiting on med from pharmacy)2017 (New Bag - Provider: Yun Nicole RN)2150 (New Bag - Provider: Yun Nicole RN - Comment: Slowed down infusion)2234 (New Bag - Provider: Yun Nicole RN)233 (New Bag - Provider: Yun Nicole RN) 0042 (New Bag - Provider: Yun Nicole RN - Comment: Medication had gotten off schedule. See 1800 dose note given from previous shift.) potassium chloride 10 mEq in 100 mL IVPB 10 mEq, Intravenous, at 100 mL/hr, Administer over 60 Minutes, Every 1 Hour, First dose on Mon08/20/24 at 1015, For 4 doses, OUTPATIENT/NON-MONITORED UNITS: Potassium Chloride standard bolus infusion rate is a maximum of 10 mEq/hr on unmonitored patients MONITORED UNITS: Potassium Chloride standard bolus infusion rate is a maximum of 20 mEq/hr on ECG monitored patients ONLY 1047 (New Bag - Provider: Pilar Verduzco RN)1148 (New Bag - Provider: Pilar Verduzco, RN)1215 (Due)1315 (Due) Sod Citrate-Citric Acid (BICITRA) oral solution 30 mL (COMPLETED) 30 mL, Oral, Once, On Mon08/20/24 at 1330, For 1 dose 1342 (Given - Provider: Polly Cabrera RN - Comment: prior to procedure) sodium chloride 0.9 % flush 10 mL 10 mL, Intravenous, Every 12 Hours Scheduled, First dose on Mon08/19/24 at 2100 2152 (Not Given - Provider: Yun Nicole RN - Reason: Other (Comment Required) - Comment: IV currently infusing) 0956 (Not Given - Provider: Pilar Verduzco RN - Reason: Given from running infusion) sucralfate (CARAFATE) tablet 1 g 1 g, Oral, 4 Times Daily Before Meals & Nightly, First dose on Mon08/20/24 at 1730, If for oral administration, take on empty stomach. If for rectal enema, dissolve 1 tablet in 10 ml water. Retain enema for as long as possible or for at least 5 minutes. For nasogastric or slurry administration: 1. Remove the cap and plunger from a [address] the sucralfate tablet inside the syringe 3. Replace the plunger so that minimal airspace exists around the tablet 4. Draw up approximately 20 mL water into the syringe 5. Replace the syringe cap 6. Allow the syringe to stand for ~5 minutes, shaking occasionally 7. Shake the suspension and administer directly from the syringe into the tube Flush tube before and after administration thiamine (B-1) injection 200 mg (COMPLETED) 200 mg, Intravenous, Once, On Mon08/19/24 at 1530, For 1 dose, Doses of up to 250mg, give over 1-2 minutes (IV push). Doses 250mg and above, give over 30 minutes. 1604 (Given - Provider: Nneka Cross, RN) Continuous Medication Order 08/18/2024 08/19/2024 08/20/2024 dextrose 5 % and lactated Ringer's infusion 125 mL/hr, Intravenous, Continuous, Starting on Mon08/19/24 at 1830, For 1 day 2151 (New Bag - Provider: Yun Nicole, RN) 0438 (New Bag - Provider: Yun Nicole, RN)0838 (Stopped - Provider: Pilar Verduzco, BRIT)1043 (New Bag - Provider: Pilar Verduzco, RN)1828 (Due: Order Ending - Provider: Automatic Discharge Provider - Comment: [Order ends at this time. Document the following action when infusion is complete: Stopped]) PRN Medication Order 08/18/2024 08/19/2024 08/20/2024 bisacodyl (DULCOLAX) EC tablet 10 mg 10 mg, Oral, Daily PRN, Constipation, Starting on Mon08/20/24 at 1129, If patient skips 2 days without a bowel movement, recommend bisacodyl 10 mg. Do not crush or chew the capsules or tablets. The drug may not work as designed if the capsule or tablet is crushed or chewed. Swallow whole. Swallow whole. Do not crush, split, or chew tablet. ondansetron (ZOFRAN) injection 4 mg 4 mg, Intravenous, Every 6 Hours PRN, Nausea, Vomiting, Starting on Mon08/19/24 at 1827, If multiple N/V medications ordered, use in the following order: Ondansetron, Prochlorperazine, Promethazine. Use PO unless patient refuses or patient unable to swallow. 1903 (Given - Provider: Pilar Verduzco, BRIT) 0608 (Given - Provider: Yun Nicole, BRIT) Potassium Replacement - Follow Nurse / BPA Driven Protocol Open Order & Select S Electrolyte Replacement Protocol Algorithm to View Details sodium chloride 0.9 % flush 1-10 mL 1-10 mL, Intravenous, As Needed, Line Care, Starting on Mon08/19/24 at 1432 sodium chloride 0.9 % infusion 40 mL 40 mL, Intravenous, at 100 mL/hr, As Needed, Line Care, Starting on Mon08/19/24 at 1432, Following administration of an IV intermittent medication, flush line with 40mL NS at 100mL/hr. documented in this encounter Additional Health Concerns Assessment Noted Time PHQ-2 Depression Total Score: 2 05/28/19 25 4:39 PM EDT documented as of this encounter Care Teams Chief Gauger Relationship Specialty Start Date End Date Norma Friedman APRN [address] [place] G3 RAFAELA APPIAH [id number] PCP - General Family Medicine 05/14/24 documented as of this encounter
--- OUTSIDE RECORDS SUMMARY | 2024-08-20 13:33 | XMS_ITS | Encounter Summary ---
[facility] Address [address] [place] [id number] Care Team Providers Care Call Center Operator Name Role Phone Norma Friedman APRN Primary Care Provider + [phone] Reason for Visit * Reason Comments Vaginal Bleeding * Auth/Cert (Routine) Specialty Diagnoses / Procedures Referred By Tarik t Referred To Contact Referral ID Status Reason Start Date Expiration Date Visits Re quested Visits Authorized [id number] 1 1 Encounter Details Date Type Department Care Team (Late st Contact Info) Description 08/20/2024 1:33 PM EDT - 08/20/2024 2:05 PM EDT Surgery PSYCHIATRIC ENDO SUITES [address] [place] [address] Blu Alvarado MD [address] [facility] [address] [place] [address] ESOPHAGOGASTRODUODENOSCOPY [54441 (CPT )] Social History Tobacco Use Types [...] heating? Not hard at all 05/28/2024 [facility] - Occupational Stress Questionnaire Answer Date [...] GED or equivalent No 05/28/2024 Preferred Language Iraqi 05/28/2024 PHQ-2 Answer Date Recorded Patient Health [...] 1:23 PM EDT Polly Lacey RN * [place] Suicide Severity Rating Scale (Screener/Recent Self-Report) Question [...] Labs [facility] Results Pending at Discharge Pending Labs Order Current Status Tissue Pathology Exam In process Rob Wharton MD 08/20/24 15:36 EDT Time: Discharge <30 min documented in this encounter Discharge Instructions * Attachments The following attachments cannot be sent through Care Everywhere. * Second Trimester of (Iraqi) * Upper Endoscopy Adult Care After (Iraqi) documented in this encounter Medications at Time [...] 08/19/2024 RH Positive 08/19/2024 ABSCRN Negative 08/19/2024 [id number] non-reactive 04/12/2024 HEPCVIRUSABY negative 04/12/2024 URINECX Final [...] IUPC: Resting Tone: Resting Tone by IUPC: [place] Units: Cervix: Exam by: Method: sterile vaginal [...] original note were not included. [facility] Obstetric History and Physical Referring Provider: Rob [...] her third trimesters prior pregnancies(etiology unknown). Patient's sofa back upholsterer is in [facility]. She states has never had [...] IUPC: Resting Tone: Resting Tone by IUPC: [place] Units: Laboratory Results: Lab Results (last 24 [...] , await recommendations following EGD - consider NURSE DISCHARGE PLANNER evaluation if no etiology for difficulty swallowing [...] original note were not included. [facility] Obstetric History and Physical Referring Provider: Rob [...] her third trimesters prior pregnancies(etiology unknown). Patient's sofa back upholsterer is in [facility]. She states has never had [...] IUPC: Resting Tone: Resting Tone by IUPC: [place] Units: Laboratory Results: Lab Results (last 24 [...] Visit [facility] [address] [id number] Robbin Escalante MD [address] [address] documented as of this encounter Procedures Procedure [...] TEST Routine 08/19/2024 4:[address] [facility] Routine 08/19/2024 3:25 PM EDT [...] EDT) Case Report Surgical Pathology Report Case: [id number] Authorizing Provider: Blu Alvarado MD Collected: 08/20/2024 01:55 PM Ordering Location: PSYCHIATRIC Received: 08/20/2024 02:14 PM ENDO SUITES Pathologist: Khalida Rhoades DO Specimen: Gastric, Antrum, antrum bx for path 08/22/2024 9:18 AM EDT PSYCHIATRIC LABORATORY Clinical Information Dysphagia, unspecified type 08/22/2024 9:18 AM EDT PSYCHIATRIC LABORATORY Final Diagnosis Stomach, antrum, biopsy: 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 pylori is negative (no organisms are identified) Negative for intestinal metaplasia, dysplasia, or malignancy 08/22/2024 9:18 AM EDT PSYCHIATRIC LABORATORY at 0918 EDT Gross Description 1. Gastric, Antrum. Received in formalin labeled antrum biopsy is a 0.4 x 0.2 x 0.2 cm pink-see soft tissue fragment submitted entirely in a single cassette. HDM 08/22/2024 9:18 AM EDT PSYCHIATRIC LABORATORY Microscopic Description The slides are reviewed and demonstrate histopathologic features supporting the above rendered diagnosis. 08/22/2024 9:18 AM EDT PSYCHIATRIC LABORATORY Tissue Pyloric antrum structure / Unknown 08/20/2024 1:55 PM EDT 08/20/2024 2:14 PM EDT us Blu Alvarado MD PATHOLOGY/CYTOLOGY ORDERABLES Final Result PSYCHIATRIC LABORATORY
[address] [place] [address], * Upper GI Endoscopy (08/20/2024 1:09 PM EDT) us Blu Alvarado MD INTERFACE NEEDS Final Result * (ABNORMAL) Basic Metabolic Panel (08/20/2024 5:25 AM EDT) Glucose 84 65 - 99 mg/dL 08/20/2024 6:13 AM EDT [facility]IC LAB[facility]ORY BUN 2.3(L) 6.0 - 20.0 mg/dL 08/20/2024 6:13 AM T [facility]IAT[facility]IC LABORATORY Creatinine 0.51(L) 0.57 - 1.00 mg/dL 08/20/2024 6:13 AM [facility] Sodium 139 136 - 145 mmol/L 08/20/2024 6:13 AM EDT PSYCHIATRIC LABORATORY Potassium 3.5 3.5 - 5.2 mmol/L 08/20/2024 6:13 AM EDT PS[facility]CHIATRIC LABORATORY Chloride 109(H) 98 - 107 mmol/L 08/20/2024 6:13 AM [facility] CO2 23.5 22.0 - 29.0 mmol/L 08/20/2024 6:13 AM [facility] Calcium 7.8(L) 8.6 - 10.5 mg/dL 08/20/2024 6:13 AM [facility] BUN/Creatinine Ratio 4.5(L) 7.0 - 25.0 08/20/2024 6:13 AM [facility] Anion Gap 6.5 5.0 - 15.0 mmol/L 08/20/2024 6:13 AM [facility] eGFR 126.6 >60.0 mL/min/1.7 3 08/20/2024 6:13 AM [facility] Blood Venipuncture / Unknown 08/20/2024 5:25 AM EDT 08/20/2024 5:46 AM T [facility] - 08/20/2024 6:13 AM EDT [...] ORDERABLES Final Resu lt Performing Organization Address City/[facility]/ZIP Co de Phone Number PSYCHIATRIC LABORATORY
[address] [place] [address], * (ABNORMAL) Potassium (08/19/2024 8:53 PM EDT) Potassium 2.7(L) 3.5 - 5.2 mmol/L 08/19/2024 9:20 PM EDT PSYCHIATRIC LABORATORY Blood Venipuncture / Unknown 08/19/2024 8:53 PM EDT 08/19/2024 9:04 PM EDT Kt Fan DO LAB BLOOD ORDERABLES Final Result Performing Organization Address [facility] Co de Phone Number PSYCHIATRIC LABORATORY
[address] [place] [address], * ABO RH Specimen Verification (08/19/2024 4:34 PM EDT) ABO Type O 08/19/2024 7:39 PM EDT [facility] LAB[facility] RH type Positive 08/19/2024 7:39 PM EDT [facility] Blood Venipuncture / Unknown 08/19/2024 4:34 PM EDT 08/19/2024 4:53 PM EDT Rob Wharton MD BLOOD BANK TEST ORDER FRANCO Final Result Performing Organization Address City[facility]/ZIP Co de Phone Number PSYCHIATRIC BB LABORATORY
[address] [place] [address], * [facility] (08/19/2024 3:25 PM EDT) Anatomical Region Laterality Modality Ultrasound 08/19/2024 3:09 PM EDT Narrative 08/19/2024 4:54 PM EDT PAT NAME: CAROLE GIRARD MED REC#: [id number] DA: 1990 PAT GEND: F PAT TYPE: E EXAM TRAVIS: [id number] REF PHYS ROB WHARTON Comparison Studies The [...] EFW (oz) 9 oz EFW by: Hadlock (IHS-WS-EV-FL) Extended Cav. septi pel. tr 4.7 mm Capsule Inspector 3.8 mm CM 7.5 mm 84% Nicolaides [...] Heart / Thorax 3-vessel view: Appears normal 6-fgfwmn-qzqinyy view: Appears normal Stomach: Appears normal Kidneys: [...] in 4wks for growth. Coding ======= Description: 66260-27 Follow Up Security Associate: Alison Verduzco RT R , MS Physician: Jo Chappell MD Electronically signed by: Jo Chappell MD at: 16:54 Procedure Note Jo Chappell MD - 08/19/2024 PAT NAME: CAROLE GIRARD MED REC#: [id number] DA: [id number] PAT GEND: F PAT TYPE: E EXAM TRAVIS: [id number] REF PHYS ROB WHARTON Comparison Studies The findings of this study are compared to the prior ultrasound studydated 07/22/24 Patient Status Inpatient Indication ======== History of c/s x1. History of . Vaginal bleeding. Maternal Assessment Laemhi653 cm Height (ft)5 ft Height (in)4 in Dzpmdf27 kg Weight (lb)158 lb BMI27.31 kg/m Method ======= Transabdominal ultrasound examination. View: Limited by patient bodyhabitus ========= Love . Number of fetuses: 1 Dating ====== Method of dating:based on stated DUSTY GA by prior [id number] w + 1 d DUSTY by prior assessment:12/01/2024 Ultrasound examination on:08/19/2024 GA by U/S based upon:AC, BPD, Femur, HC GA by U/S24 w + 2 d DUSTY by U/S:12/07/2024 Previous dating:based on stated DUSTY, selected on 07/22/2024 Agreed DUSTY of previous datin12/01/2024 Assigned:based on stated DUSTY, selected on 08/19/2024 Assigned GA25 w + 1 d Assigned DUSTY:12/01/2024 [id number] d Biometry Standard BPD57.6 mm 23w 4d 5% Hadlock OFD81.6 mm 26w 4d 88% Jamal HC225.7 mm 24w 4d 13% Hadlock Cerebellum tr28.9 mm 25w 2d 62% Hill AC194.9 mm 24w 1d 15% Hadlock Femur44.9 mm 24w 6d 27% Hadlock Ugoiqfx98.3 mm 25w 3d 50% Jamal HC / AC1.16 RCF094 g 24w 2d 16% Hadlock EFW (lb)1 lb EFW (oz)9 oz EFW by:Hadlock (HBI-AA-BF-FL) Extended Cav. septi pel. tr4.7 mm Vp3.8 mm CM7.5 mm 84% Nicolaides Head / Face / Neck Cephalic index0.71 <1% Nicolaides Extremities / Bony Struc FL / BPD0.78 FL / HC0.20 FL / AC0.23 Other Structures [id number] bpm General Evaluation Cardiac activity present. FHR [...] normal Heart / Thorax 3-vessel view:Appears normal 9-jykndb-nrvpvmp view:Appears normal Stomach:Appears normal Kidneys:Appears normal Bladder:Appears normal Gender:female Wants to know gender:yes Maternal Structures Uterus / Cervix Cervix:Visualized Approach:Transabdominal Cervical povvsp17.9 mm Doppler Arterial Umbilical A PI1.01 32% [...] office in 4wks for growth. Coding ======= Description:36042-93 Follow Up Security Associate: RT Annetta Hartmann , [facility] Physician: Jo Chappell MD Electronically signed by: Jo Chappell MD at: 16:54 us Kt Fan DO [facility] US ORDERABLES Final Res ult * Protein / Creatinine Ratio, Urine - Urine, Clean Catch (08/19/2024 3:02 PM EDT) Protein/Creati nine Ratio, Urine 126.1 0.0 - 200.0 mg/G Crea 08/20/2024 12:47 AM EDT [facility] Creatinine, Urine 148.3 mg/dL 08/20/2024 12:47 AM EDT [facility] Total Protein, Urine 18.7 mg/dL 08/20/2024 12:47 AM EDT [facility] Urine Urine specimen obtained by clean catch procedure / Unknown Collection / Unknown 08/19/2024 3:02 PM EDT 08/19/2024 4:26 PM EDT Kt Fan DO URINE ORDERABLES Final Resu lt [facility]
[address] [place] [address], [place] [phone] * (ABNORMAL) Magnesium (08/19/2024 3:02 PM EDT) Magnesium 1.5(L) 1.6 - 2.6 mg/dL 08/19/2024 5:12 PM EDT PSYCHIATRIC LABORATORY Blood Line / Unknown 08/19/2024 3: 02 PM EDT 08/19/2024 3:10 PM EDT Kt Fan DO LAB BLOOD ORDERABLES Final Result Performing Organization Address City[facility]/ZIP Co de Phone Number PSYCHIATRIC LABORATORY
[address] [place] [address], [place] [phone] * Urinalysis, Microscopic Only - Urine, Clean Catch (08/19/2024 3:02 PM EDT) RBC, UA 0-2 None Seen, 0-2 /HPF 08/19/2024 3:33 PM EDT [facility] LAB[facility]ATORY WBC, UA 0-2 None Seen, 0-2 /HPF 08/19/2024 3:33 PM EDT [facility] LAB[facility]ORY Bacteria, UA None Seen None Seen /HPF 08/19/2024 3:33 PM EDT [facility] LAB[facility] Squamous Epithelial Cells, UA 0-2 None Seen, 0-2 /HPF 08/19/2024 3:33 PM EDT [facility] LAB[facility] Hyaline Casts, UA None Seen None Seen /LPF 08/19/2024 3:33 PM EDT [facility] LAB[facility] Methodology Automated Microscopy 08/19/2024 3:33 PM EDT [facility] LAB[facility] Urine Urine specimen obtained by clean catch procedure / Unknown Collection / Unknown 08/19/2024 3:02 PM EDT 08/19/2024 3:13 PM EDT Kt Fan DO URINE ORDERABLES Final Resu lt [facility]IATRIC LABORATORY
[address] [place] [address], * (ABNORMAL) CBC Auto Differential (08/19/2024 3:02 PM EDT) WBC 9.19 3.40 - 10.80 10*3/mm3 08/19/2024 3:23 PM EDT [facility] LAB[facility] RBC 3.58(L) 3.77 - 5.28 10*6/mm3 08/19/2024 3:23 PM EDT [facility] Hemoglobin 10.5(L) 12.0 - 15.9 g/dL 08/19/2024 3:23 PM EDT [facility] LAB[facility] Hematocrit 31.4(L) 34.0 - 46.6 % 08/19/2024 3:23 PM EDT [facility] MCV 87.7 79.0 - 97.0 fL 08/19/2024 3:23 PM EDT [facility] MCH 29.3 26.6 - 33.0 pg 08/19/2024 3:23 PM EDT [facility] MCHC 33.4 31.5 - 35.7 g/dL 08/19/2024 3:23 PM EDT [facility] RDW 13.4 12.3 - 15.4 % 08/19/2024 3:23 PM EDT [facility] RDW-SD 42.4 37.0 - 54.0 fl 08/19/2024 3:23 PM EDT [facility] MPV 12.0 6.0 - 12.0 fL 08/19/2024 3:23 PM EDT [facility] Platelets 241 140 - 450 10*3/mm3 08/19/2024 3:23 PM EDT [facility] Neutrophil % 66.8 42.7 - 76.0 % 08/19/2024 3:23 PM EDT [facility] Lymphocyte % 24.4 19.6 - 45.3 % 08/19/2024 3:23 PM EDT [facility] Monocyte % 7.6 5.0 - 12.0 % 08/19/2024 3:23 PM EDT [facility] Eosinophil % 0.7 0.3 - 6.2 % 08/19/2024 3:23 PM EDT [facility] Basophil % 0.2 0.0 - 1.5 % 08/19/2024 3:23 PM EDT [facility] Immature Grans % 0.3 0.0 - 0.5 % 08/19/2024 3:23 PM EDT [facility] Neutrophils, Absolute 6.14 1.70 - 7.00 10*3/mm3 08/19/2024 3:23 PM EDT [facility] Lymphocytes, Absolute 2.24 0.70 - 3.10 10*3/mm3 08/19/2024 3:23 PM EDT [facility] Monocytes, Absolute 0.70 0.10 - 0.90 10*3/mm3 08/19/2024 3:23 PM EDT [facility] LAB[facility] Eosinophils, Absolute 0.06 0.00 - 0.40 10*3/mm3 08/19/2024 3:23 PM EDT [facility] Basophils, Absolute 0.02 0.00 - 0.20 10*3/mm3 08/19/2024 3:23 PM EDT [facility] LAB[facility] Immature Grans, Absolute 0.03 0.00 - 0.05 10*3/mm3 08/19/2024 3:23 PM EDT [facility] LAB[facility] nRBC 0.0 0.0 - 0.2 /100 WBC 08/19/2024 3:23 PM EDT [facility] LAB[facility] Blood Line / Unknown 08/19/2024 3: 02 PM EDT 08/19/2024 3:10 PM EDT Kt Fan DO LAB BLOOD ORDERABLES Final Result PSYCHIATRIC LABORATORY
[address] [place] [address], * (ABNORMAL) Urinalysis With Microscopic If Indicated (No Culture) - Urine, Clean Catch (08/19/2024 3:02 PM EDT) Color, UA Yellow Yellow, Straw 08/19/2024 3:33 PM EDT [facility] LAB[facility] Appearance, UA Clear Clear 08/19/2024 3:33 PM EDT [facility] pH, UA >=9.0(H) 5.0 - 8.0 08/19/2024 3:33 PM EDT [facility] LAB[facility] Specific [place], UA 1.018 1.005 - 1.030 08/19/2024 3:33 PM EDT [facility] LAB[facility] Glucose, UA Negative Negative 08/19/2024 3:33 PM EDT [facility] LAB[facility] Ketones, UA 15 mg/dL (1+)(A) Negative 08/19/2024 3:33 PM EDT [facility] Bilirubin, UA Negative Negative 08/19/2024 3:33 PM EDT [facility] LAB[facility] Blood, UA Negative Negative 08/19/2024 3:33 PM EDT [facility] LAB[facility] Protein, UA 30 mg/dL (1+)(A) Negative 08/19/2024 3:33 PM EDT [facility] LAB[facility] Leuk Esterase, UA Negative Negative 08/19/2024 3:33 PM EDT [facility] LAB[facility] Nitrite, UA Negative Negative 08/19/2024 3:33 PM EDT [facility] LAB[facility] Urobilinogen, UA 1.0 E.U./dL 0.2 - 1.0 E.U./dL 08/19/2024 3:33 PM EDT [facility] LAB[facility] Urine Urine specimen obtained by clean catch procedure / Unknown Collection / Unknown 08/19/2024 3:02 PM EDT 08/19/2024 3:13 PM EDT us Kt Fan DO URINE ORDERABLES Final Resu lt [facility] LAB[facility]ATORY
[address] [place] [address], [place] [phone] * Amylase (08/19/2024 3:02 PM EDT) Amylase 73 28 - 100 U/L 08/19/2024 3:36 PM EDT [facility] LAB[facility] Blood Line / Unknown 08/19/2024 3: 02 PM EDT 08/19/2024 3:10 PM EDT us Kt Fan DO LAB BLOOD ORDERABLES Final Result Performing Organization Address [facility] Co de Phone Number PSYCHIATRIC LABORATORY
[address] [place] [address], [place] [phone] * Lipase (08/19/2024 3:02 PM EDT) Lipase 13 13 - 60 U/L 08/19/2024 3:36 PM EDT [facility] Blood Line / Unknown 08/19/2024 3: 02 PM EDT 08/19/2024 3:10 PM EDT us Kt Fan DO LAB BLOOD ORDERABLES Final Result Performing Organization Address City[facility]/ZIP Co de Phone Number PSYCHIATRIC LABORATORY
[address] [place] [address], [place] [phone] * (ABNORMAL) Comprehensive Metabolic Panel (08/19/2024 3:02 PM EDT) Glucose 75 65 - 99 mg/dL 08/19/2024 3:38 PM EDT [facility] BUN 3.6(L) 6.0 - 20.0 mg/dL 08/19/2024 3:38 PM T [facility] Creatinine 0.51(L) 0.57 - 1.00 mg/dL 08/19/2024 3:38 PM EDT [facility] LAB[facility] Sodium 137 136 - 145 mmol/L 08/19/2024 3:38 PM T [facility] LAB[facility] Potassium 2.6(LL) 3.5 - 5.2 mmol/L 08/19/2024 3:38 PM [facility] Comment:Specimen hemolyzed. Result may be falsely elevated. Chloride 99 98 - 107 mmol/L 08/19/2024 3:38 PM [facility] CO2 24.2 22.0 - 29.0 mmol/L 08/19/2024 3:38 PM T [facility] LAB[facility] Calcium 8.8 8.6 - 10.5 mg/dL 08/19/2024 3:38 PM T [facility] LAB[facility] Total Protein 6.6 6.0 - 8.5 g/dL 08/19/2024 3:38 PM [facility] Albumin 3.4(L) 3.5 - 5.2 g/dL 08/19/2024 3:38 PM [facility] ALT (SGPT) 10 1 - 33 U/L 08/19/2024 3:38 PM T [facility] AST (SGOT) 22 1 - 32 U/L 08/19/2024 3:38 PM T [facility] Alkaline Phosphatase 64 39 - 117 U/L 08/19/2024 3:38 PM [facility] Total Bilirubin 0.5 0.0 - 1.2 mg/dL 08/19/2024 3:38 PM T [facility] Globulin 3.2 gm/dL 08/19/2024 3:38 PM T [facility] Comment:Calculated Result A/G Ratio 1.1 g/dL 08/19/2024 3:38 PM EDT [facility] BUN/Creatinine Ratio 7.1 7.0 - 25.0 08/19/2024 3:38 PM EDT [facility] Anion Gap 13.8 5.0 - 15.0 mmol/L 08/19/2024 3:38 PM EDT [facility] eGFR 126.6 >60.0 mL/min/1.7 3 08/19/2024 3:38 PM EDT [facility] LAB[facility] Blood Line / Unknown 08/19/2024 3: 02 PM EDT 08/19/2024 3:10 PM EDT [facility] - 08/19/2024 3:38 PM EDT [...] Fan DO LAB BLOOD ORDERABLES Final Result PSYCHIATRIC LABORATORY
[address] [place] [address], * Type & Screen (08/19/2024 3:02 PM EDT) ABO Type O 08/19/2024 3:51 PM EDT [facility] RH type Positive 08/19/2024 3:51 PM EDT [facility] Antibody Screen Negative 08/19/2024 3:51 PM EDT [facility] T&S Expiration Date 08/22/2024 11:59:59 PM 08/19/2024 3:51 PM EDT [facility] Blood Line / Unknown 08/19/2024 3: 02 PM EDT 08/19/2024 3:15 PM EDT Kt Fan DO BLOOD BANK TEST ORDERABLES Edited Result - Final [facility]
[address] [place] [address], documented in this encounter Visit Diagnoses Diagnosis [...] BPA Driven Protocol Open Order & Select [facility] Electrolyte Replacement Protocol Algorithm to [...] documented as of this encounter Care Teams Call Center Operator Relationship Specialty Start Date End Date Norma Friedman APRN [address] [place] G3 RAFAELA APPIAH [id number] PCP - General Family Medicine 05/14/24 documented as of this encounter
--- OUTSIDE RECORDS SUMMARY | 2024-08-20 13:44 | XMS_ITS | Encounter Summary ---
[facility] Address [address] [place] [phone] Care Team Providers Care Customer Solutions Specialist Name Role Phone IvyKade goldbergdev FERNÁNDEZ Primary Care Provider + [phone] Reason for Visit * Auth/Cert (Routine) Specialty Diagnoses / Procedures Referred By Contac t Referred To Contact Referral ID Status Reason Start Date Expiration Date Visits Re quested Visits Authorized 1 1 Encounter Details Date Type Department Care Team (Late st Contact Info) Description 08/20/2024 1:44 PM EDT Anesthesia Event [facility] ENDO SUITES [address] [place] [address] Akash Anguiano MD [address] [place] [address] Liborio Peralta CRNA [address] [place] [address] Anesthesia Record Procedure Summary Procedure Name Responsible [...] drink = 0.6 oz pur e alcohol) [facility] Utilities Answer Date Recorded In [...] and heating? Not hard at all 05/28/2024 [facility] [place] of Occupat ional Health - Occupational Stress [...] GED or equivalent No 05/28/2024 Preferred Language Tunisian 05/28/2024 PHQ-2 Answer Date Recorded Patient Health [...] 1:23 PM EDT Polly Lacey RN * [place] Suicide Severity Rating Scale (Screener/Recent Self-Report) Question Answer Date of Assessment Author 6. Suicidal Behavior (Lifetime) No 1:23 PM EDT Polly Cabrera RN documented as of this encounter OR Notes * Anesthesia Postprocedure Evaluation - Liborio Peralta CRNA - 08/20/2024 2:18 PM EDT Patient: Whitney Presley Procedure Summary Date: 08/20/24 Room / Location: [facility] ENDOSCOPY 3 / [facility] Anesthesia Start: [...] sounds: normal. 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 Plan discussed with PEDIATRIC LPN. CODE STATUS: documented in this encounter Plan of Treatment Upcoming Encounters Date Type Department Care Team (Late st Contact Info) Description 01/20/2025 3:30 PM EST Office Visit [facility]ENTEROLOGY [address] [facility] [address] Robbin Escalante MD [address] [address] documented as of this encounter Procedures Procedure [...] and Staff Patient location during procedure: OR PEDIATRIC LPN/CAA: Junior Zbigniew Jain, DAYNE Indications and Patient [...] documented as of this encounter Care Teams Customer Solutions Specialist Relationship Specialty Start Date End Date Norma Friedman APRN [address] [place] [address] [place] [id number] PCP - General Family Medicine 05/14/24 documented as of this encounter
--- OUTSIDE RECORDS SUMMARY | 2024-08-29 10:00 | XMS_ITS | Encounter Summary ---
Author Organization [facility] Address [address] [place] [address] Care Team Providers Care French Cord Binder Name Role Phone IvyKade goldbergjoseseven JOLENE Primary Care Provider + [phone] Reason for Visit * Reason Comments Problem Encounter Details Date Type Department Care Team (Late st Contact Info) Description 08/29/2024 10:00 AM EDT Routine [facility] OBGYN [address] [place] [address] Staci Jain MD [address] [place] [address] GA: 26w4d Social History Tobacco Use Types Packs/Day Years Used Date Smoking Tobacco: Never Smokeless Tobacco: Never Alcohol Use Standard Drinks/Week Comments Never 0 (1 standard drink = 0.6 oz pur e alcohol) [facility] Utilities Answer Date Recorded In the past 12 months has [employer], gas, oil, or water [employer] threatened to shut off services in your [...] and heating? Not hard at all 05/28/2024 [facility] [place] [facility] - Occupational Stress Questionnaire [...] Description 01/20/2025 3:30 PM EST Office Visit [facility] GASTROENTEROLOGY [address] [address] Robbin Escalante MD [address] [address] Scheduled Orders Name Type Priority Associated Diagnoses [...] - 08/30/2024 6:09 AM EDT Performed at: [address] [place] [id number] Systems Qa Analyst: Kevin Harman MD, Phone: [phone] Patient Fasting: N us Staci Jain MD LAB BLOOD ORDERABLES Final Result [facility] (AMBULATORY) [address] [place] [address], [place] [phone] [facility] [address] [place] [address], [place] [phone] * (ABNORMAL) Comprehensive Metabolic Panel (08/29/2024 11:05 AM EDT) Pathologist [facility] Glucose 72 65 - 99 mg/dL [facility] [...] - 08/30/2024 6:09 AM EDT Performed at: [address] [place] [id number] Systems Qa Analyst: Kevin Harman MD, Phone: [phone] Patient Fasting: N us Staci Jain MD LAB BLOOD ORDERABLES Final Result Performing Organization Address City/[facility]/ZIP Co de Phone Number [facility] (AMBULATORY) [address] [place] [address], [place] [phone] [facility] [address] [place] [address], [place] [phone] * (ABNORMAL) POC Urinalysis Dipstick (08/29/2024 10:13 AM EDT) [facility] Glucose, UA Negative Negative mg/dL [facility] Protein, POC Trace(A) Negative mg/dL [facility] Urine 08/29/2024 10:1 3 AM EDT us Staci Jain MD POINT OF CARE TEST OR DERABLES Final Result [facility]
[address] [place] [address], documented in this encounter Visit Diagnoses Diagnosis [...] documented as of this encounter Care Teams French Cord Binder Relationship Specialty Start Date End Date Norma Friedman APRN [address] [place] G[address] RAFAEL[place] APPIAH [address] PCP - General Family Medicine 05/14/24 documented as of this encounter
--- OUTSIDE RECORDS SUMMARY | 2024-09-11 08:01 | XMS_ITS | Encounter Summary ---
Author Organization Healthcare Address [address] [place] [id number] Care Team Providers Care Material Man Name Role Phone Unavailable Primary Care Provider Unavailabl e Reason for Referral * Consultation (Routine) - Authorized Specialty Diagnoses / Procedures Referred By Contac t Referred To Contact Nephrology Diagnoses History of proteinuria syndrome care, subsequent , second trimester Staci Jain MD [address] [address] Phone: tel: fax: [facility] Nephrology, Bone & Mineral Metabolism [address] [facility], [address] [place] [address] Phone: tel: fax: Referral ID Status Reason Start Date Expiration Date Visits Requested Visits Authorized [id number] Authorized Specialty Services Required 07/22/2024 01/21/2026 1 1 Encounter Details Date Type Department Care Team (Late st Contact Info) Description 07/22/2024 [facility] Community Practice [address] [place] [address] Staci Jain MD 1700 [place] [address] History of proteinuria syndrome (Primary Dx); care, [...]
--- OUTSIDE RECORDS SUMMARY | 2024-09-11 08:01 | XMS_ITS | Encounter Summary ---
[facility] [address] [place] [address] Care Team Providers Care Laborer Plumbing Name Role Phone Elder Norma FERNÁNDEZ Primary Care Provider + [phone] Encounter Details Date Type Department Care Team (Latest Contact Info) Description 08/29/2024 Travel Social History Tobacco Use Types Packs/Day Years Used Date Smoking Tobacco: Never Smokeless Tobacco: Never Alcohol Use Standard Drinks/Week Comments Never 0 (1 standard drink = 0.6 oz pur e alcohol) [facility] Utilities Answer Date Recorded In the past 12 months has [employer], gas, oil, or water company threatened [...] and heating? Not hard at all 05/28/2024 [employer] [place] of Occupat ional Health - Occupational [...] GED or equivalent No 05/28/2024 Preferred Language Haitian 05/28/2024 PHQ-2 Answer Date Recorded Patient Health [...] Visit [facility] GASTR[facility]ENTEROLOGY [address] [facility] [address] [place] [address] Robbin Escalante MD [address] [facility] [address] [place] [address] documented as of this encounter Visit Diagnoses Not on filedocumented in this encounter Additional Health Concerns Assessment Noted Time PHQ-2 Depression Total Score: 2 05/28/19 25 4:39 PM EDT documented as of this encounter Care Teams Laborer Plumbing Relationship Specialty Start Date End Date Norma Friedman APRN [address] [place] [place] [address] PCP - General Family Medicine 05/14/24 documented as of this encounter
--- OUTSIDE RECORDS SUMMARY | 2024-09-11 08:01 | XMS_ITS | Clinical Summary ---
Author Organization Healthcare Address [address] [place] [address] Care Team Providers Care Insurance Inspector Name Role Phone Unavailable Primary Care Provider Unavailabl e Encounters Date Type Department Care Team Description 07/22/2024 [facility] [address] [place] [address] Staci Jain MD History of proteinuria syndrome (Primary Dx); care, subsequent , second trimester 07/22/2024 [facility] [address] [place] [address] Sandy Cardenas MD from Last 3 Months [...] 2012 [facility]-Cervical Cancer Screening 2021 [facility]HPV/Cotest 2021 [id number] Vaccine (2 season) 2023 05/04/2022 [facility]-Influenza Vaccine [...]
--- OUTSIDE RECORDS SUMMARY | 2024-09-11 08:01 | XMS_ITS | Clinical Summary ---
Author Organization [facility] [place] [address] Phone Care Team Providers Care Mussel Farmer Name Role Phone Unavailable Primary Care Provider [...] migh t be different from the original. [facility] - Edwardo Ojeda MD Interventional Pain Protocol: NS Appt 03/29/22 Letter Sent Maxime report completed (EVERY 3 MONTHS) ( 03/23/22) Pharmacy: [facility] [address] [place] [id number] [address] [facility] south - [phone] No known active problems Social History Tobacco [...] patient's age to complete this topic Insurance [employer] [facility] [id number]
--- OUTSIDE RECORDS SUMMARY | 2024-09-11 08:02 | XMS_ITS | Clinical Summary ---
Author Organization [facility] Address [address] [place] [address] Care Team Providers Care Glass Vial Filler Name Role Phone Norma Friedman APRN Primary Care Provider + [phone] Allergies Active Allergy Reactions Criticality Noted Date [...] [facility] [address] [place] [address] Rob Wharton MD 5 Telephone [facility] [address] [facility] [address] [place] [address] Rob Wharton MD 5 10:00 AM EDT Routine [facility] [address] [place] [address] Rob Wharton MD GA: 26w4d 5 Travel 5 Telephone [facility] [address] [facility] [address] [place] [address] Rob Wharton MD 5 Telephone [facility] OBGYN [address] [place] [address] Rob Wharton MD 5 1:44 PM EDT Anesthesia Event ENDO SUITES [address] [place] [address] Akash Anguiano MD Lanham, John, CRNA 5 1:33 PM EDT - 5 2:05 PM EDT Surgery ENDO SUITES [address] [place] [address] Blu Alvarado MD ESOPHAGOGASTRODUODENOSCOPY [53416 (CPT )] 5 1:59 PM EDT - 5 4:28 PM EDT Hospital Encounter ANTEPARTUM [address] [place] [address] Rob Wharton MD Brunner, Mark I, MD Dysphagia, unspecified type (Primary Dx) Discharge Disposition: Home or Self Care 5 10:15 AM EDT Routine [facility] [address] [place] [address] Jacey Mathews, MELT HOUSE DRAG OPERATOR GA: 25w1d 5 Telephone [facility] O[facility] [address] [place] [address] Jacey Mathews, MELT HOUSE DRAG OPERATOR 5 Travel 5 Patient Outreach LABOR DELIVERY [address] [place] [address] Christy Zabala RN 5 9:10 AM EDT Routine [facility] [address] [facility] [place] [address] [place] [address] Rob Wharton MD GA: 21w1d 5 8:00 AM EDT Office Visit [facility] MATERNAL MEDICINE [address] [facility] [address] [place] [address] Sebastian Larsen MD History of prior with small for gestational age (Primary Dx) 5 7:44 AM EDT - 5 11:59 PM EDT Hospital Encounter [facility] [address] [place] [address] Kelly Delgado, MELT HOUSE DRAG OPERATOR care, antepartum, unspecified ; High risk due to history of labor, antepartum; History of prior with small for gestational age Discharge Disposition: Home or Self Care 5 Travel 5 Results Follow-Up [facility] [address] [facility] [address] [place] [address] Kelly Delgado, JOLENE 5 10:10 AM EDT Routine [facility] [address] [facility] [address] [place] [address] Kelly Delgado, MELT HOUSE DRAG OPERATOR GA: 18w5d 5 9:30 AM EDT Ancillary Procedure [facility] [address] [facility] [address] [place] [id number] care in second trimester, unspecified 5 Travel 5 Telephone [facility] [address] [facility] [address] [place] [address] Uriel Russ MD TRANSFER OF CARE REQ 5 10:15 PM EDT - 5 11:59 PM EDT Hospital Encounter LABOR DELIVERY [address] [place] [id number] Rob Wharton MD Mirsky, Elizabeth, MD Discharge Disposition: Home or Self Care 5 Travel 5 Telephone [facility] [address] [facility] [address] [place] [address] Uriel Russ MD [facility], OB 5 Telephone [facility] OBG[facility] [address] [place] [address] Uriel Russ MD [facility] 5 [facility]Visit [facility] [address] [place] [address] E-VisitToni MD 5 Results Follow-Up [facility] OBGYN [address] [place] [address] Uriel Russ MD 5 3:20 PM EDT Routine [facility] OBGYN [address] [place] [address] Uriel Russ MD GA: 17w2d 5 3:00 PM EDT Ancillary Procedure [facility] [address] [place] [address] Bleeding in early (Primary Dx) 5 Travel 5 Telephone [facility] O[facility]YN [address] [place] [address] Uriel Russ MD 5 9:40 AM EDT Routine [facility] O[facility]YN [address] [place] [address] Uriel Russ MD GA: 15w2d 5 Travel [...] drink = 0.6 oz pur e alcohol) [facility] Utilities Answer Date Recorded In the past 12 months has [employer], gas, oil, or water [employer] threatened to shut off services in your [...] at all 05/28/2024 [employer] [facility] of Occupat ional Health - Occupational Stress [...] Office Visit [facility] GASTROENTEROLOGY [address] [address] Robbin Escalante MD [address] [address] Health Maintenance Due Date Last Done Comments [...] 10:02 AM EDT Multigravida in second trimester [facility] Routine 07/22/2024 9:10 AM [...] - 08/30/2024 6:09 AM EDT Performed at: [address] [place] [address] [id number] Nurse Rn Bsn: Kevin Harman MD, Phone: [phone] Patient Fasting: N us Rob Wharton MD LAB BLOOD ORDERABLES Final Result [facility] (AMBULATORY) [address] [place] [address], [facility] [address] [place] [address], * (ABNORMAL) Comprehensive Metabolic Panel (08/29/2024 11:05 AM EDT) Only the most recent of4 resultswithin the time period is included. [facility] Glucose 72 65 - 99 mg/dL [facility] [...] 11:0 5 AM EDT 08/29/2024 Narrative [facility] (AMBULATORY) - 08/30/2024 6:09 AM EDT Performed at: [address] [place] [id number] Nurse Rn Bsn: Kevin Harman MD, Phone: [phone] Patient Fasting: N us Rob Wharton MD LAB BLOOD ORDERABLES Final Result [facility] (AMBULATORY) [address] [place] [address], [facility] [address] [place] [address], [place] [phone] * (ABNORMAL) POC Urinalysis Dipstick (08/29/2024 10:13 AM EDT) Only the most recent of5 resultswithin the time period is included. Glucose, UA Negative Negative mg/dL [facility] Protein, POC Trace(A) Negative mg/dL [facility] Urine 08/29/2024 10:1 3 AM EDT us Rob Wharton MD POINT OF CARE TEST OR DERABLES Final Result [facility] LAB[facility]
[address] [place] [address], * BH AN ETT AIRWAY (08/20/2024 2:02 PM EDT) Narrative Liborio Peralta CRNA - 08/20/2024 2:02 PM EDT Liborio PeraltaDAYNE 08/20/2024 2:03 PM Airway Reason: elective Date/Time: 08/20/2024 2:02 PM Airway not difficult General Information and Staff Patient location during procedure: OR DAIRY EQUIPMENT REPAIRER/CAA: Junior Zbigniew Wharton, DAIRY EQUIPMENT REPAIRER Indications and Patient Condition Indications for airway [...] with symmetric chest rise and fall Liborio [place] DAYNE ANESTHESIA ORDERABLES Final Res ult * Tissue Pathology Exam (08/20/2024 1:55 PM EDT) Case Report Surgical Pathology Report Case: [id number] Authorizing Provider: Blu Alvarado MD Collected: 08/20/2024 01:55 PM Ordering Location: Received: 08/20/2024 02:14 PM ENDO SUITES Pathologist: Khalida Rhoades DO Specimen: Gastric, Antrum, antrum bx for path 08/22/2024 9:18 AM EDT LABORATORY Clinical Information Dysphagia, unspecified type 08/22/2024 9:18 AM EDT LABORATORY Final Diagnosis Stomach, antrum, biopsy: 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 pylori is negative (no organisms are identified) Negative for intestinal metaplasia, dysplasia, or malignancy 08/22/2024 9:18 AM EDT LABORATORY at 0918 EDT Gross Description 1. Gastric, Antrum. Received in formalin labeled antrum biopsy is a 0.4 x 0.2 x 0.2 cm pink-see soft tissue fragment submitted entirely in a single cassette. HDM 08/22/2024 9:18 AM EDT LABORATORY Microscopic Description The slides are reviewed and demonstrate histopathologic features supporting the above rendered diagnosis. 08/22/2024 9:18 AM EDT LABORATORY Tissue Pyloric antrum structure / Unknown 08/20/2024 1:55 PM EDT 08/20/2024 2:14 PM EDT Blu Alvarado MD PATHOLOGY/CYTOLOGY ORDERABLES Final Result LABORATORY
[address] [place] [address], * Upper GI Endoscopy (08/20/2024 1:09 PM EDT) us Blu Alvarado MD INTERFACE NEEDS Final Result * (ABNORMAL) Basic Metabolic Panel (08/20/2024 5:25 AM EDT) Glucose 84 65 - 99 mg/dL 08/20/2024 6:13 AM EDT LABORATORY BUN 2.3(L) 6.0 - 20.0 mg/dL 08/20/2024 6:13 AM EDT LABORATORY Creatinine 0.51(L) 0.57 - 1.00 mg/dL 08/20/2024 6:13 AM EDT LABORATORY Sodium 139 136 - 145 mmol/L 08/20/2024 6:13 AM EDT LABORATORY Potassium 3.5 3.5 - 5.2 mmol/L 08/20/2024 6:13 AM EDT LABORATORY Chloride 109(H) 98 - 107 mmol/L 08/20/2024 6:13 AM EDT LABORATORY CO2 23.5 22.0 - 29.0 mmol/L 08/20/2024 6:13 AM EDT LABORATORY Calcium 7.8(L) 8.6 - 10.5 mg/dL 08/20/2024 6:13 AM EDT LABORATORY BUN/Creatinine Ratio 4.5(L) 7.0 - 25.0 08/20/2024 6:13 AM EDT LABORATORY Anion Gap 6.5 5.0 - 15.0 mmol/L 08/20/2024 6:13 AM EDT LABORATORY eGFR 126.6 >60.0 mL/min/1.7 3 08/20/2024 6:13 AM EDT LABORATORY Blood Venipuncture / Unknown 08/20/2024 5:25 [...] MD LAB BLOOD ORDERABLES Final Resu lt LABORATORY
[address] [place] [address], [place] [phone] * (ABNORMAL) Potassium (08/19/2024 8:53 PM EDT) Potassium 2.7(L) 3.5 - 5.2 mmol/L 08/19/2024 9:20 PM EDT LABORATORY Blood Venipuncture / Unknown 08/19/2024 8:53 PM EDT 08/19/2024 9:04 PM EDT Kt Fan DO LAB BLOOD ORDERABLES Final Result Performing Organization Address City/[facility]/ZIP Co de Phone Number LABORATORY
[address] [place] [address], * ABO RH Specimen Verification (08/19/2024 4:34 PM EDT) ABO Type O 08/19/2024 7:39 PM EDT BB LABORATORY RH type Positive 08/19/2024 7:39 PM EDT [facility] LABORATORY Blood Venipuncture / Unknown 08/19/2024 4:34 PM EDT 08/19/2024 4:53 PM EDT Rob Wharton MD BLOOD BANK TEST ORDER FRANCO Final Result Performing Organization Address City/[facility] Co de Phone Number BB LABORATORY
[address] [place] [address], * [facility] (08/19/2024 3:25 PM EDT) Only the most recent of2 resultswithin the time period is included. Anatomical Region Laterality Modality Ultrasound 08/19/2024 3:09 PM EDT Narrative 08/19/2024 4:54 PM EDT PAT NAME: CAROLE GIRARD MED REC#: [id number] DA: 1990 PAT GEND: F PAT TYPE: E EXAM TRAVIS: [id number] REF PHYS ROB WHARTON Comparison Studies The [...] EFW (oz) 9 oz EFW by: Hadlock ([id number]) Extended Cav. septi pel. tr 4.7 mm Pulp Roller 3.8 mm CM 7.5 mm 84% Nicolaides [...] Heart / Thorax 3-vessel view: Appears normal 5-lgzusu-anxwpva view: Appears normal Stomach: Appears normal Kidneys: [...] in 4wks for growth. Coding ======= Description: 06890-54 Follow Up Transportation Program Director: Alison Verduzco RT R , [facility] Physician: Jo Chappell MD Electronically signed by: Jo Chappell MD at: 16:54 Procedure Note Jo Chappell MD - 08/19/2024 PAT NAME: CAROLE GIRARD MED REC#: [id number] DA: [id number] PAT GEND: F PAT TYPE: E EXAM TRAVIS: [id number] REF PHYS ROB WHARTON Comparison Studies The findings of this study are compared to the prior ultrasound studydated 07/22/24 Patient Status Inpatient Indication ======== History of c/s x1. History of . Vaginal bleeding. Maternal Assessment Igegap480 cm Height (ft)5 ft Height (in)4 in Awercc16 kg Weight (lb)158 lb BMI27.31 kg/m Method ======= Transabdominal ultrasound examination. View: Limited by patient bodyhabitus ========= Love . Number of fetuses: 1 Dating ====== Method of dating:based on stated DUSTY GA by prior [id number] w + 1 d DUSTY by prior [...] Hadlock Femur44.9 mm 24w 6d 27% Hadlock Bsijxwr97.3 mm 25w 3d 50% Jamal HC / AC1.16 NYV370 g 24w 2d 16% Hadlock EFW (lb)1 lb EFW (oz)9 oz EFW by:Hadlock ([id number]-[id number]-FL) Extended Cav. septi pel. tr4.7 mm Vp3.8 mm CM7.5 mm 84% Nicolaides Head / Face / Neck Cephalic index0.71 <1% Nicolaides Extremities / Bony Struc FL / BPD0.78 FL / HC0.20 FL / AC0.23 Other Structures UDL656 bpm General Evaluation Cardiac activity present. FHR [...] normal Heart / Thorax 3-vessel view:Appears normal 0-bqzsky-ujggruu view:Appears normal Stomach:Appears normal Kidneys:Appears normal Bladder:Appears [...] office in 4wks for growth. Coding ======= Description:[id number] Follow Up Transportation Program Director: RT Annetta Hartmann , [facility] Physician: Jo Chappell MD Electronically signed by: Jo Chappell MD at: 16:54 us Kt Fan DO [facility] US ORDERABLES Final Res ult * Urinalysis, Microscopic Only - Urine, Clean Catch (08/19/2024 3:02 PM EDT) Only the most recent of2 resultswithin the time period is included. RBC, UA 0-2 None Seen, 0-2 /HPF 08/19/2024 3:33 PM EDT LABORATORY WBC, UA 0-2 None Seen, 0-2 /HPF 08/19/2024 3:33 PM EDT LABORATORY Bacteria, UA None Seen None Seen /HPF 08/19/2024 3:33 PM EDT LABORATORY Squamous Epithelial Cells, UA 0-2 None Seen, 0-2 /HPF 08/19/2024 3:33 PM EDT LABORATORY Hyaline Casts, UA None Seen None Seen /LPF 08/19/2024 3:33 PM EDT LABORATORY Methodology Automated Microscopy 08/19/2024 3:33 PM EDT LABORATORY Urine Urine specimen obtained by clean catch procedure / Unknown Collection / Unknown 08/19/2024 3:02 PM EDT 08/19/2024 3:13 PM EDT Kt Fan DO URINE ORDERABLES Final Resu lt LABORATORY
[address] [place] [address], * (ABNORMAL) Urinalysis With Microscopic If Indicated (No Culture) - Urine, Clean Catch (08/19/2024 3:02 PM EDT) Only the most recent of2 resultswithin the time period is included. Color, UA Yellow Yellow, Straw 08/19/2024 3:33 PM EDT LABORATORY Appearance, UA Clear Clear 08/19/2024 3:33 PM EDT LABORATORY pH, UA >=9.0(H) 5.0 - 8.0 08/19/2024 3:33 PM EDT LABORATORY Specific Bussey, UA 1.018 1.005 - 1.030 08/19/2024 3:33 PM EDT LABORATORY Glucose, UA Negative Negative 08/19/2024 3:33 PM EDT LABORATORY Ketones, UA 15 mg/dL (1+)(A) Negative 08/19/2024 3:33 PM EDT LABORATORY Bilirubin, UA Negative Negative 08/19/2024 3:33 PM EDT LABORATORY Blood, UA Negative Negative 08/19/2024 3:33 PM EDT LABORATORY Protein, UA 30 mg/dL (1+)(A) Negative 08/19/2024 3:33 PM EDT LABORATORY Leuk Esterase, UA Negative Negative 08/19/2024 3:33 PM EDT LABORATORY Nitrite, UA Negative Negative 08/19/2024 3:33 PM EDT LABORATORY Urobilinogen, UA 1.0 E.U./dL 0.2 - 1.0 E.U./dL 08/19/2024 3:33 PM EDT LABORATORY Urine Urine specimen obtained by clean catch procedure / Unknown Collection / Unknown 08/19/2024 3:02 PM EDT 08/19/2024 3:13 PM EDT Kt Fan DO URINE ORDERABLES Final Resu lt [facility]
[address] [place] [address], * (ABNORMAL) CBC Auto Differential (08/19/2024 3:02 PM EDT) WBC 9.19 3.40 - 10.80 10*3/mm3 08/19/2024 3:23 PM EDT LABORATORY RBC 3.58(L) 3.77 - 5.28 10*6/mm3 08/19/2024 3:23 PM EDT LABORATORY Hemoglobin 10.5(L) 12.0 - 15.9 g/dL 08/19/2024 3:23 PM EDT LABORATORY Hematocrit 31.4(L) 34.0 - 46.6 % 08/19/2024 3:23 PM EDT LABORATORY MCV 87.7 79.0 - 97.0 fL 08/19/2024 3:23 PM EDT LABORATORY MCH 29.3 26.6 - 33.0 pg 08/19/2024 3:23 PM EDT LABORATORY MCHC 33.4 31.5 - 35.7 g/dL 08/19/2024 3:23 PM EDT LABORATORY RDW 13.4 12.3 - 15.4 % 08/19/2024 3:23 PM [facility] LABORATORY RDW-SD 42.4 37.0 - 54.0 fl 08/[facility]2024 [facility] MPV 12.0 6.0 - 12.0 fL 08/19/2024 3:23 PM EDT LABORATORY Platelets 241 140 - 450 10*3/mm3 08/19/2024 3:23 PM EDT LABORATORY Neutrophil % 66.8 42.7 - 76.0 % 08/19/2024 [facility] Lymphocyte % 24.4 19.6 - 45.3 % 08/19/2024 3:[facility] Monocyte % 7.6 5.0 - 12.0 % 08/19/2024 3:[facility] Eosinophil % 0.7 0.3 - 6.2 % 08/19/2024 3:23 [facility] Basophil % 0.2 0.0 - 1.5 % 08/19/2024 3:[facility] Immature Grans % 0.3 0.0 - 0.5 % 08/19/2024 3:23 PM [facility] Neutrophils, Absolute 6.14 1.70 - 7.00 10*3/mm3 08/19/2024 3:[facility] Lymphocytes, Absolute 2.24 0.70 - 3.10 10*3/mm3 08/19/2024 3:23 PM [facility] Monocytes, Absolute 0.70 0.10 - 0.90 10*3/mm3 08/19/2024 3:23 PM EDT LABORATORY Eosinophils, Absolute 0.06 0.00 - 0.40 10*3/mm3 08/19/2024 3:[facility] Basophils, Absolute 0.02 0.00 - 0.20 10*3/mm3 08/19/2024 3:23 PM EDT LABORATORY Immature Grans, Absolute 0.03 0.00 - 0.05 10*3/mm3 08/19/2024 3:23 PM EDT LABORATORY nRBC 0.0 0.0 - 0.2 /100 WBC 08/19/2024 3:23 PM EDT LABORATORY Blood Line / Unknown 08/19/2024 3: 02 PM EDT 08/19/2024 3:10 PM EDT [facility] Dirk Acosta LAB BLOOD ORDERABLES Final Result LABORATORY
[address] [place] [address], * Protein / Creatinine Ratio, Urine - Urine, Clean Catch (08/19/2024 3:02 PM EDT) Protein/Creati nine Ratio, Urine 126.1 0.0 - 200.0 mg/G Crea 08/20/2024 12:47 AM EDT [facility] LABORATORY Creatinine, Urine 148.3 mg/dL 08/20/2024 12:47 AM EDT [facility] LABORAT[facility] Total Protein, Urine 18.7 mg/dL 08/20/2024 12:47 AM EDT [facility] LABORATORY Urine Urine specimen obtained by clean catch procedure / Unknown Collection / Unknown 08/19/2024 3:02 PM EDT 08/19/2024 4:26 PM EDT Kt Fan URINE ORDERABLES Final Resu lt [facility] LABORATORY
[address] [place] [address], * Type & Screen (08/19/2024 3:02 PM EDT) ABO Type O 08/19/2024 3:51 PM EDT BB LABORATORY RH type Positive 08/19/2024 3:51 PM EDT BB LABORATORY Antibody Screen Negative 08/19/2024 3:51 PM EDT BB LABORATORY T&S Expiration Date 08/22/2024 11:59:59 PM 08/19/2024 3:51 PM EDT [facility] LABORATORY Blood Line / Unknown 08/19/2024 3: 02 PM EDT 08/19/2024 3:15 PM EDT us Kt Fan DO BLOOD BANK TEST ORDERABLES Edited Result - Final Performing Organization Address [facility] Co de Phone Number [facility] LABORATORY
[address] [place] [address], [place] [phone] * (ABNORMAL) Magnesium (08/19/2024 3:02 PM EDT) Magnesium 1.5(L) 1.6 - 2.6 mg/dL 08/19/2024 5:12 PM EDT LABORATORY Blood Line / Unknown 08/19/2024 3: 02 PM EDT 08/19/2024 3:10 PM EDT us Kt Fan DO LAB BLOOD ORDERABLES Final Result Performing Organization Address [facility] Co de Phone Number LABORATORY
[address] [place] [address], [place] [phone] * Lipase (08/19/2024 3:02 PM EDT) Lipase 13 13 - 60 U/L 08/19/2024 3:36 PM EDT LABORATORY Blood Line / Unknown 08/19/2024 3: 02 PM EDT 08/19/2024 3:10 PM EDT us Kt Fan DO LAB BLOOD ORDERABLES Final Result Performing Organization Address City/[facility]/ZIP Co de Phone Number LABORATORY
[address] [place] [address], * Amylase (08/19/2024 3:02 PM EDT) Amylase 73 28 - 100 U/L 08/19/2024 3:36 PM EDT LABORATORY Blood Line / Unknown 08/19/2024 3: 02 PM EDT 08/19/2024 3:10 PM EDT Kt Fan DO LAB BLOOD ORDERABLES Final Result LABORATORY
[address] [place] [address], * US Ob 14 + Weeks Single or First Gestation (07/05/2024 10:17 AM EDT) Anatomical Region Laterality Modality Body Ultrasound 07/05/2024 10:2 8 AM EDT Narrative 07/09/2024 7:02 PM EDT PAT NAME: CAROLE GIRARD MED REC#: [id number] DA: 1990 PAT GEND: F PAT TYPE: O EXAM TRAVIS: [id number] REF PHYS URIEL RUSS Acoustic Warfare Analyst Comments Still need heart views and PCI [...] EFW (oz) 9 oz EFW by: Hadlock ([id number]-FL) Extended Pulp Roller 6.4 mm CM 3.3 mm 11% Nicolaides [...] Heart / Thorax 3-vessel view: not visualized 0-hwzrpd-ajmkkba view: not visualized Diaphragm: Appears normal Diaphragm: [...] subsequent visit to complete the anatomic screening. Acoustic Warfare Analyst: Soo Harding RDMS Physician: Uriel Russ II, MD, FACOG Electronically signed by: Uriel Russ II, MD, FACOG at: 19:02 Procedure Note Uriel Russ MD - 07/09/2024 PAT NAME: CAROLE GIRARD MED REC#: [id number] DA: [id number] PAT GEND: F PAT TYPE: O EXAM TRAVIS: [id number] REF PHYS URIEL RUSS Acoustic Warfare Analyst Comments Still need heart views and PCI N/L, Kidneys, Legs suboptimal Indication ======== anatomy survey Comparison Studies There are no relevant prior studies to which this study is beingcompared Method ======= Voluson E6, Transabdominal ultrasound examination. View: Suboptimal view:limited by early gestational age ========= Love . Number of fetuses: 1 Dating ====== Method of dating:based on stated DUSTY GA by prior [id number] w + 5 d DUSTY by prior [...] 67% Hadlock HC / AC1.13 20% Hadlock NWJ286 g 18w 6d 56% Hadlock EFW (lb)0 lb EFW (oz)9 oz EFW by:Hadlock (UEQ-GB-[id number]-FL) Extended Vp6.4 mm CM3.3 mm 11% Nicolaides Extremities / Bony Struc FL / BPD0.80 >99% Hadlock FL / HC0.20 98% Hadlock FL / AC0.23 89% Hadlock Other Structures WDY200 bpm Anatomy Cranium:Appears normal Lateral ventricles:Appears normal Choroid plexus:Appears normal Midline falx:Appears normal Cavum septi pellucidi:Appears normal Cerebellum:Appears normal Cisterna magna:Appears normal Lips:suboptimal Profile:Appears normal Nose:suboptimal 4-chamber view:not visualized RVOT view:not visualized LVOT view:not visualized Heart / Thorax 3-vessel view:not visualized 6-ygukze-evjpmxw view:not visualized Diaphragm:Appears normal Diaphragm:Intact Cord insertion:Appears [...] a subsequent visit tocomplete the anatomic screening. Acoustic Warfare Analyst: Soo Hrading RDMS Physician: Uriel Russ II, MD, FACOG Electronically signed by: Uriel Russ II, MD, FACOG at: 0319:02 Uriel Russ MD [facility] ORDERABLES Final Result * Urine Culture - [...] / Unknown 07/05/2024 07/05/2024 Comment:Urine Release to [facility] Narrative [facility] (AMBULATORY) - 07/07/2024 3:35 AM EDT Performed at: - [facility] [address] [place], [place] [id number] Nurse Rn Bsn: Michael Martinez PhD, Phone: [phone] Kelly Shanel Delgado MELT HOUSE DRAG OPERATOR MICROBIOLOGY - GENERAL ORDER FRANCO Final Result Performing Organization Address [facility] Co de Phone Number [facility] (AMBULATORY) [address] [place] [address], [facility] [address] [place] [address], * Tryptase (06/25/2024 4:34 PM EDT) Tryptase 6.1 2.2 - 13.2 ug/L [facility] Blood 06/25/2024 4:34 PM EDT 06/25/2024 [facility] - 06/28/2024 9:10 AM EDT Performed at: Lab[address] [id number] Nurse Rn Bsn: Fang Yu MD, Phone: [phone] Uriel Russ MD LAB BLOOD ORDERABLES Final Resu lt Performing Organization Address [facility] Co de Phone Number [facility] ([facility]) [address] [place] [address], [facility] [address] [place] [address], * Vitamin D,25-Hydroxy (06/25/2024 4:34 PM EDT) 25 Hydroxy, Vitamin D 33.7 30.0 - 100.0 ng/mL [facility] Comment: Vitamin D deficiency has been defined by the [place] of [employer] and an Endocrine Society practice guideline as a level of serum 25-OH vitamin D less than 20 ng/mL (1,2). The Endocrine Society went on to further define vitamin D insufficiency as a level between 21 and 29 ng/mL (2). 1. IOM ([employer] of Medicine). 2010. Dietary reference intakes for calcium and D. [place]: The National Academies Press. 2. [place], [place], Wade MITCHELL, et al. Evaluation, treatment, and prevention of vitamin D deficiency: an Endocrine Society clinical practice guideline. JCEM. 2010; 96(7):1911-30. Blood 06/25/2024 4:34 PM EDT 06/25/2024 Narrative [facility] (AMBULATORY) - 06/26/2024 7:37 AM EDT Performed at: 01 - [address] [id number] Nurse Rn Bsn: Michael Martinez PhD, Phone: [phone] us Uriel Russ MD LAB BLOOD ORDERABLES Final Resu lt Performing Organization Address City/[facility]/ZIP Co de Phone Number [facility] ([facility]) [address] [place] [address], [facility] [address] [place] [address], * TSH (06/25/2024 4:34 PM EDT) [facility] TSH [phone] 0.450 - 4.500 uIU/mL [facility] Blood 06/25/2024 4:34 PM EDT 06/25/2024 [facility] (AMBULATORY) - 06/26/2024 7:37 AM EDT Performed at: [facility] Lab[address] [id number] Nurse Rn Bsn: Michael Martinez PhD, Phone: [phone] us Uriel Russ MD LAB BLOOD ORDERABLES Final Resu lt Performing Organization Address City/[facility]/ZIP Co de Phone Number [facility] [address] [place] [address], [facility] [address] [place] [address], * T4, Free (06/25/2024 4:34 PM EDT) Pathologist [facility] Free T4 1.09 0.82 - 1.77 ng/dL [facility] Blood 06/25/2024 4:34 PM EDT 06/25/[address] [facility] [address] [facility] (AMBULATORY) - 06/26/2024 7:37 AM EDT Performed at: 01 - [address] [id number] Nurse Rn Bsn: Michael Martinez PhD, Phone: [phone] us Uriel Russ MD LAB BLOOD ORDERABLES Final Resu lt Performing Organization Address City/[facility]/ZIP Co de Phone Number [facility] [address] [place] [address], [place] [phone] [facility] [address] [place] [address], [place] [phone] * (ABNORMAL) Hemoglobin A1c (06/25/2024 4:34 PM EDT) [facility] Hemoglobin A1C 4.7(L) 4.8 - 5.6 % [facility] Comment: Prediabetes: 5.7 - 6.4 Diabetes: >6.4 Glycemic control for adults with diabetes: <7.0 Blood 06/25/2024 4:34 PM EDT 06/25/2024 Narrative [facility] (AMBULATORY) - 06/26/2024 4:35 AM EDT Performed at: - [address] [id number] Nurse Rn Bsn: Michael Martinez PhD, Phone: [phone] us Uriel Russ MD LAB BLOOD ORDERABLES Final Resu lt Performing Organization Address City/[facility]/ZIP Co de Phone Number [facility] [address] [place] [address], [place] [phone] [facility] [address] [place] [address], [place] [phone] * (ABNORMAL) Lipid Panel (06/25/2024 4:34 PM EDT) Total Cholesterol 203(H) 100 - 199 mg/dL [facility] Triglycerides 125 0 - 149 mg/dL [facility] HDL Cholesterol 52 >39 mg/dL [facility] VLDL Cholesterol Rom 22 5 - 40 mg/dL [facility] LDL Chol Calc (NIH) 129(H) 0 - 99 mg/dL [facility] Blood 06/25/2024 4:34 PM EDT 06/25/2024 Narrative [facility] (AMBULATORY) - 06/26/2024 6:36 AM EDT Performed at: 01 - [address] [id number] Nurse Rn Bsn: Michael Martinez PhD, Phone: [phone] us Uriel Russ MD LAB BLOOD ORDERABLES Final Resu lt [facility] (AMBULATORY) [address] [place] [address], [facility] [address] [place] [address], * US Ob Limited 1 + Fetuses (06/25/2024 3:10 PM EDT) Anatomical Region Laterality Modality Body Ultrasound 06/25/2024 3:54 PM EDT Narrative 06/26/2024 1:34 PM EDT PAT NAME: CAROLE GIRARD MED REC#: [id number] DA: 1990 PAT GEND: F PAT TYPE: O EXAM TRAVIS: [id number] REF PHYS URIEL RUSS Indication ======== Heart [...] clinically indicated for the condition being monitored. Acoustic Warfare Analyst: RT Annetta Bruno, [facility] Physician: Uriel Russ II, MD, FACOG Electronically signed by: Uriel Russ II, MD, FACOG at: 13:34 Procedure Note Uriel Russ MD - 06/26/2024 PAT NAME: CAROLE GIRARD MED REC#: [id number] DA: 1990 PAT GEND: F PAT TYPE: O EXAM TRAVIS: [id number] REF PHYS URIEL RUSS Indication ======== Heart Tones Comparison Studies The findings of this study are compared to the prior ultrasound studydated 05/27/2024 Method ======= Transabdominal ultrasound examination. View: Suboptimal view: limited byfetal position ========= Love . Number of fetuses: 1 Dating ====== Method of dating:based on stated DUSTY GA by prior [id number] w + 2 d DUSTY by prior assessment:12/01/2024 Previous dating:based on stated DUSTY, selected on 05/27/2024 Agreed DUSTY of previous datin12/01/2024 Assigned:based on stated DUSTY, selected on 06/25/2024 Assigned GA17 w + 2 d Assigned DUSTY:12/01/2024 [id number] d General Evaluation Cardiac activity present. FHR 150 bpm. movements visualized. Presentation variable. Placenta Placental site: anterior. Amniotic fluid Amount of AF: normal. MVP 2.7 cm. Maternal Structures Uterus / Cervix Cervical cesses51.1 mm Impression heart tones 150. 17 weeks 2 days. EDC 12/01/2024. Single fetus.Cervical length 33 mm. Recommendation Follow-up scan as clinically indicated for the condition beingmonitored. Acoustic Warfare Analyst: RT Annetta Bruno, [facility] Physician: Uriel Russ II, MD, FACOG Electronically signed by: Uriel Russ II, MD, FACOG at: :34 Uriel Russ MD [facility] US ORDERABLES Final Result * Hepatitis C Antibody (04/12/2024) Hep C Virus Ab negative Blood us Historical Provider LAB BLOOD ORDERABLES Lena l Result from Last 3 Months or Most Recently Relevant to Health Maintenance Insurance [facility] [facility] Care Teams Glass Vial Filler Relationship Specialty Start Date End Date Norma Friedman APRN [address] [place] G[address] RAFAELA APPIAH [address] PCP - General Family Medicine 05/14/24
--- OUTSIDE RECORDS SUMMARY | 2024-09-11 08:02 | XMS_ITS | Encounter Summary ---
[facility] Address [address] [place] [id number] Care Team Providers Care Coil Binder Name Role Phone Ivyashlyn Norma FERNÁNDEZ Primary Care Provider + [phone] Encounter Details Date Type Department Care Team (Late st Contact Info) Description 08/28/2024 Telephone [facility] OBGYN [address] [address] Staci Jain MD [address] [place] [id number] Social History Tobacco Use Types Packs/Day Years Used Date Smoking Tobacco: Never Smokeless Tobacco: Never Alcohol Use Standard Drinks/Week Comments Never 0 (1 standard drink = 0.6 oz pur e alcohol) [facility] Utilities Answer Date Recorded In the past 12 months has [employer], gas, oil, or water [employer] threatened to shut off services in your [...] and heating? Not hard at all 05/28/2024 [facility] of Occupat ional Health - Occupational [...] sit with a family member admitted to [facility] today and does not know if she can make it back for labs (BMP). She does have an appt in [facility] at 10 am tomorrow. Advisedthat it would [...] states she was supposed to come into [place] office today to have labs drawn however sheis currently hung [facility] at [facility] is wondering if she could just have labs drawn there? documented in this encounter Plan of Treatment Upcoming Encounters Date Type Department Care Team (Late st Contact Info) Description 01/20/2025 3:30 PM EST Office Visit [facility] GASTROENTEROLOGY [address] [facility] [address] [place] [address] Robbin Escalante MD [address]20 [facility] [address] [place] [address] documented as of this encounter Visit Diagnoses Not on filedocumented in this encounter Additional Health Concerns Assessment Noted Time PHQ-2 Depression Total Score: 2 05/28/19 25 4:39 PM EDT documented as of this encounter Care Teams Coil Binder Relationship Specialty Start Date End Date Norma Friedman APRN [address] [place] G[address] RAFAEL[place] APPIAH [address] PCP - General Family Medicine 05/14/24 documented as of this encounter
--- OUTSIDE RECORDS SUMMARY | 2024-09-11 08:02 | XMS_ITS ---
Author Organization [facility] Address [address] [place] [address] Care Team Providers Care Gift Manager Name Role Phone Norma Friedman APRN Primary Care Provider Motherhood Connection Status:Engaged (Active) Start date:05/23/2024 Enrollment date:05/23/2024 Case Team Name Relationship Phone Bindu Castellon RN Nurse Navigator Christy Zabala RN(Responsible Staff) Nurse Navig ator Continued Care and Services Coordination
--- OUTSIDE RECORDS SUMMARY | 2024-09-11 08:02 | XMS_ITS | Encounter Summary ---
Author Organization [employer] ([place], [place], [place], [place]) Address [address] [place] [address] Care Team Providers Care Direct Of Real Estate Name Role Phone Unavailable Primary Care Provider Unavailabl e Encounter Details Date Type Department Care Team (Late st Contact Info) Description 07/17/2019 Transcribed Document [facility] Family Medicine [address] [place] [address] ProviderEleno MD [address] [place], [place] [address] Social History Tobacco Use Types Packs/Day Years [...] On: 07/17/2019 19:17 EDT by KARLENE MCKINLEY control officer Process Patient Disposition : AMA/Elope/LWBS KARLENE MCKINLEY [...]
--- OUTSIDE RECORDS SUMMARY | 2024-09-11 08:02 | XMS_ITS ---
Author Organization [facility] Address [address] [place] [address] Care Team Providers Care Wedding Coordinator Name Role Phone Unavailable Primary Care Provider Unavailabl e Transplant Episode Kidney Potential Donor [facility] ([place], [place]) - [facility] Referred on 05/03/2022 Marked as Deferred on 05/04/2022 Reason: Other Kidney CoordinatorNadine Augustin R.N. Phone: N/A Fax: N/A Email: N/A Care Team Name Role Phone Fax Email Nadine Augustin R.N. Kidney Coordinator N/A N/A N/A Events Pre-Donation Referred: 05/03/2022
--- OUTSIDE RECORDS SUMMARY | 2024-09-11 08:02 | XMS_ITS | Referral Summary ---
Author Organization [employer] ([place], [place], [place], [place]) Address [address] [place] [address] Care Team Providers Care Mortgage Branch Manager Name Role Phone Unavailable Primary Care [...]
--- OUTSIDE RECORDS SUMMARY | 2024-09-11 08:02 | XMS_ITS | Encounter Summary ---
[facility] Address [address] [place] [address] Care Team Providers Care Associate School Psychologist Name Role Phone Norma Friedman APRN Primary Care Provider + [phone] Encounter Details Date Type Department Care Team (Late st Contact Info) Description 08/19/2024 Telephone [facility] OBGYN [address] [place] [address] Jacey Mathews, DRIVER LIFTER OF [employer] [address] [facility] [address] [place] [address] Social History Tobacco Use Types Packs/Day Years Used Date Smoking Tobacco: Never Smokeless Tobacco: Never Alcohol Use Standard Drinks/Week Comments Never 0 (1 standard drink = 0.6 oz pur e alcohol) [facility] Utilities Answer Date Recorded In the past 12 months has [employer], [employer], oil, or water [employer] threatened to shut off services in your [...] and heating? Not hard at all 05/28/2024 [facility]at [facility] - Occupational Stress Questionnaire Answer Date [...] Visit [facility] GASTROENTEROLOGY [address] [address] Robbin Escalante MD [address] [address] documented as of this encounter Visit Diagnoses Not on filedocumented in this encounter Additional Health Concerns Assessment Noted Time PHQ-2 Depression Total Score: 2 05/28/19 25 4:39 PM EDT documented as of this encounter Care Teams Associate School Psychologist Relationship Specialty Start Date End Date Norma Friedman APRN [address] [place] [address] RAFAELA APPIAH [address] PCP - General Family Medicine 05/14/24 documented as of this encounter
--- OUTSIDE RECORDS SUMMARY | 2024-09-11 08:02 | XMS_ITS | Clinical Summary ---
Author Organization [facility] Address [address] [place] [address] Care Team Providers Care Bulk Sugar Handler Name Role Phone Unavailable Primary Care Provider Unavailabl e Source Comments [facility] is fully rolled out with thefollowing exceptions:General Clinical Research [facility] Social History Tobacco Use Types Packs/Day [...]
--- OUTSIDE RECORDS SUMMARY | 2024-09-11 08:02 | XMS_ITS | Clinical Summary ---
Author Organization [employer] ([place], [place], [place], [place]) Address [address] [place] [address] Care Team Providers Care Laborer Plumbing Name Role Phone Unavailable Primary Care Provider [...]
--- OUTSIDE RECORDS SUMMARY | 2024-09-11 08:02 | XMS_ITS | Encounter Summary ---
[facility] Organization [facility] Address [address] [place] [id number] Care Team Providers Care Undercutter Operator Name Role Phone IvyKade goldbergjoseseven JOLENE Primary Care Provider + [phone] Encounter Details Date Type Department Care Team (Late st Contact Info) Description 07/25/2024 Patient Outreach [facility] [address] [place] [phone] Christy Zabala, RN Social History Tobacco Use [...] and heating? Not hard at all 05/28/2024 [facility] of Occupat ional Health - Occupational Stress [...] GED or equivalent No 05/28/2024 Preferred Language Upper Sorbian 05/28/2024 PHQ-2 Answer Date Recorded Patient Health [...] PM EST Office Visit [facility] GASTROENTEROLOGY [address] [address] Robbin Escalante MD [address] [place] [address] [place] [address] documented as of this encounter Visit Diagnoses Not on filedocumented in this encounter Additional Health Concerns Assessment Noted Time PHQ-2 Depression Total Score: 2 05/28/19 25 4:39 PM EDT documented as of this encounter Care Teams Undercutter Operator Relationship Specialty Start Date End Date Norma Friedman APRN [address] [place] [address] [place] [address] PCP - General Family Medicine 05/14/24 documented as of this encounter
--- OUTSIDE RECORDS SUMMARY | 2024-09-11 08:02 | XMS_ITS | Encounter Summary ---
[facility] Organization [facility] Address [address] [place] [address] Care Team Providers Care Lift Driver Name Role Phone Ivyashlyn Norma FERNÁNDEZ Primary Care Provider + [phone] Encounter Details Date Type Department Care Team (Late st Contact Info) Description 08/27/2024 Telephone [facility] OBGYN [address] [place] [address] Staci Jain MD [address] [facility] [address] [place] [address] Social History Tobacco Use Types Packs/Day Years Used Date Smoking Tobacco: Never Smokeless Tobacco: Never Alcohol Use Standard Drinks/Week Comments Never 0 (1 standard drink = 0.6 oz pur e alcohol) [facility] Utilities Answer Date Recorded In the past 12 months has [employer], [employer], oil, or water [employer] threatened to shut off services in your [...] at all 05/28/2024 [facility] Rule of Occupat ional Health - Occupational Stress [...] GED or equivalent No 05/28/2024 Preferred Language Bahraini 05/28/2024 PHQ-2 Answer Date Recorded Patient Health [...] scant bleeding. She also reports irregular myriam calixot. +FM. Reviwewed with Amita- She recommends patient [...] Description 01/20/2025 3:30 PM EST Office Visit [facility] GASTROENTEROLOGY [address] [phone] Robbin Escalante MD [address] [address] Scheduled Orders Name Type Priority Associated Diagnoses Orde r Schedule Basic Metabolic Panel Lab Routine History of hypokalemia Expected: 09/01/2024 (Approximate), Expires: 11/27/2025 documented as of this encounter Visit Diagnoses Diagnosis History of hypokalemia- Primary documented in this encounter Additional Health Concerns Assessment Noted Time PHQ-2 Depression Total Score: 2 05/28/19 25 4:39 PM EDT documented as of this encounter Care Teams Lift Driver Relationship Specialty Start Date End Date Norma Friedman APRN [address] [place] [address] RAFAELA APPIAH [address] PCP - General Family Medicine 05/14/24 documented as of this encounter
--- OUTSIDE RECORDS SUMMARY | 2024-09-11 08:02 | XMS_ITS | Encounter Summary ---
[facility] Organization [facility] Address [address] [place] [id number] Care Team Providers Care Footwear Sales Coordinator Name Role Phone Elder Norma FERNÁNDEZ Primary Care Provider + [phone] Encounter Details Date Type Department Care Team (Late st Contact Info) Description 07/07/2024 Results Follow-Up [facility] OBGYN [address] [place] [address] [place] [phone] Kelly Delgado APRN 1700 [facility] [address] [place] [address] Social History Tobacco Use Types Packs/Day Years Used Date Smoking Tobacco: Never Smokeless Tobacco: Never Alcohol Use Standard Drinks/Week Comments Never 0 (1 standard drink = 0.6 oz pur e alcohol) [facility] Utilities Answer Date Recorded In the past 12 months has [employer], gas, oil, or water [employer] threatened to shut off services in your [...] heating? Not hard at all 05/28/2024 [facility] of Occupat ional Health - [...] GED or equivalent No 05/28/2024 Preferred Language Chinese 05/28/2024 PHQ-2 Answer Date Recorded Patient Health [...] 01/20/2025 3:30 PM EST Office Visit [facility]ENTEROLOGY [address] [facility] [address] Robbin Escalante MD [address] [address] documented as of this encounter Visit Diagnoses Not on filedocumented in this encounter Additional Health Concerns Assessment Noted Time PHQ-2 Depression Total Score: 2 05/28/19 25 4:39 PM EDT documented as of this encounter Care Teams Footwear Sales Coordinator Relationship Specialty Start Date End Date Norma Friedman APRN [address] [place] [address] [place] [address] PCP - General Family Medicine 05/14/24 documented as of this encounter
--- OUTSIDE RECORDS SUMMARY | 2024-09-11 08:02 | XMS_ITS | Encounter Summary ---
Author Organization [facility] Address [address] [place] [address] Care Team Providers Care Lumber Estimator Name Role Phone Elder Norma FERNÁNDEZ Primary Care Provider + [phone] Encounter Details Date Type Department Care Team (Latest Contact Info) Description 08/19/2024 Travel Social History Tobacco Use Types Packs/Day Years Used Date Smoking Tobacco: Never Smokeless Tobacco: Never Alcohol Use Standard Drinks/Week Comments Never 0 (1 standard drink = 0.6 oz pur e alcohol) [facility] Utilities Answer Date Recorded In the past 12 months has [employer], gas, oil, or water company threatened [...] hard at all 05/28/2024 [facility] of Occupat ional Health - Occupational Stress [...] GED or equivalent No 05/28/2024 Preferred Language Faroese 05/28/2024 PHQ-2 Answer Date Recorded Patient Health [...] 2:34 PM EDT Nneka Cross RN * [place] Suicide Severity Rating Scale (Screener/Recent Self-Report) Question Answer Date of Assessment Author 6. Suicidal Behavior (Lifetime) No 2:34 PM EDT Nneka Cross RN documented as of this encounter Plan of Treatment Upcoming Encounters Date Type Department Care Team (Late st Contact Info) Description 01/20/2025 3:30 PM EST Office Visit [facility] GASTROENTEROLOGY [address] [address] Robbin Escalante MD [address] [address] documented as of this encounter Visit Diagnoses Not on filedocumented in this encounter Additional Health Concerns Assessment Noted Time PHQ-2 Depression Total Score: 2 05/28/19 25 4:39 PM EDT documented as of this encounter Care Teams Lumber Estimator Relationship Specialty Start Date End Date Norma Friedman APRN [address] [place] [address] [place] [address] PCP - General Family Medicine 05/14/24 documented as of this encounter
--- OUTSIDE RECORDS SUMMARY | 2024-09-11 08:03 | XMS_ITS | Encounter Summary ---
[facility] Address [address] [place] [phone] Care Team Providers Care Software Educator Name Role Phone IvyKade goldbergjoseseven JOLENE Primary Care Provider + [phone] Encounter Details Date Type Department Care Team (Late st Contact Info) Description 09/03/2024 Results Follow-Up [facility] OBGYN [address] [place] [address] Staci Jain MD 1700 [facility] [address] [place] [address] Social History Tobacco Use Types Packs/Day Years Used Date Smoking Tobacco: Never Smokeless Tobacco: Never Alcohol Use Standard Drinks/Week Comments Never 0 (1 standard drink = 0.6 oz pur e alcohol) [facility] Utilities Answer Date Recorded In the past 12 months has [employer], gas, oil, or water [employer] threatened to shut off services in your [...] heating? Not hard at all 05/28/2024 [facility] of Occupat ional Health - Occupational Stress [...] GED or equivalent No 05/28/2024 Preferred Language Nigerian 05/28/2024 PHQ-2 Answer Date Recorded Patient Health [...] Visit [facility] GASTROENTEROLOGY [address] [address] Robbin Escalante MD [address] [address] documented as of this encounter Visit Diagnoses Not on filedocumented in this encounter Additional Health Concerns Assessment Noted Time PHQ-2 Depression Total Score: 2 05/28/19 4:39 PM EDT documented as of this encounter Care Teams Software Educator Relationship Specialty Start Date End Date Norma Friedman APRN [address] [place] [address] [place]IAH [address] PCP - General Family Medicine 05/14/24 documented as of this encounter
--- OUTSIDE RECORDS SUMMARY | 2024-09-11 08:03 | XMS_ITS | Encounter Summary ---
Author Organization [facility] Address [address] [place] [id number] Care Team Providers Care Program Clerk Name Role Phone Ivyashlyn Valentinoseven JOLENE Primary Care Provider + [phone] Encounter Details Date Type Department Care Team (Late st Contact Info) Description 06/26/2024 Results Follow-Up [facility] OBGYN [address] [address] Koby Roberts MD [address] [place] [address] Social History Tobacco Use Types Packs/Day Years Used Date Smoking Tobacco: Never Smokeless Tobacco: Never Alcohol Use Standard Drinks/Week Comments Never 0 (1 standard drink = 0.6 oz pur e alcohol) [facility] Utilities Answer Date Recorded In the past 12 months has [employer], gas, oil, or water [employer] threatened to shut off services in your [...] and heating? Not hard at all 05/28/2024 [facility] [place] of Occupat ional Health - Occupational Stress [...] Visit [facility] GASTR[facility]ENTEROLOGY [address] [facility] [address] Robbin Escalante MD [address] [address] documented as of this encounter Visit Diagnoses Not on filedocumented in this encounter Additional Health Concerns Assessment Noted Time PHQ-2 Depression Total Score: 2 05/28/19 25 4:39 PM EDT documented as of this encounter Care Teams Program Clerk Relationship Specialty Start Date End Date Norma Friedman APRN [address] [place] [address] [place] [address] PCP - General Family Medicine 05/14/24 documented as of this encounter
--- OUTSIDE RECORDS SUMMARY | 2024-09-11 08:03 | XMS_ITS | Encounter Summary ---
[facility] Address [address] [place] [id number] Care Team Providers Care Tax Commissioner Name Role Phone Ivyashlyn Norma FERNÁNDEZ Primary Care Provider + [phone] Encounter Details Date Type Department Care Team (Late st Contact Info) Description 09/02/2024 Telephone [facility] OBGYN [address] [address] Staci Jain MD [address] [place] [id number] Social History Tobacco Use Types Packs/Day Years Used Date Smoking Tobacco: Never Smokeless Tobacco: Never Alcohol Use Standard Drinks/Week Comments Never 0 (1 standard drink = 0.6 oz pur e alcohol) [facility] Utilities Answer Date Recorded In the past 12 months has [employer], [employer], oil, or water [employer] threatened to shut off services in your [...] and heating? Not hard at all 05/28/2024 [facility] of Occupat ional Health - [...] PM EDT She just got d/c'd from [facility] 2 hours ago and they gave her a total 10 MLE of K+ and 3 units of Mag and 2 liters of LR. She has decided to transfer care to [facility] as it iscloser to her like 15 min away. She wants you (Dr. Jain) to know this has nothing to you but rather the nurses and collection clerk doctor did not relay the labs to you in a faster fashion. She said you can call her if you want and she is not angry. Dr. Jain was notified. * Telephone Encounter - Frederick Gruber RN - 09/02/2024 3:10 PM EDT Cloudiket message sent to the pt regarding outpt infusion apt tomorrow at [facility]. documented in this encounter Plan of Treatment Upcoming Encounters Date Type Department Care Team (Late st Contact Info) Description 01/20/2025 3:30 PM EST Office Visit [facility] GASTROENTEROLOGY [address] [place] [address] [place] [address] Robbin Escalante MD [address] [facility] [address] [place] [address] documented as of this encounter Visit Diagnoses Not on filedocumented in this encounter Additional Health Concerns Assessment Noted Time PHQ-2 Depression Total Score: 2 05/28/19 25 4:39 PM EDT documented as of this encounter Care Teams Tax Commissioner Relationship Specialty Start Date End Date Norma Friedman APRN [address] [place] [address] [place] [address] PCP - General Family Medicine 05/14/24 documented as of this encounter
--- OUTSIDE RECORDS SUMMARY | 2024-09-11 08:03 | XMS_ITS | Encounter Summary ---
[facility] Address [address] [place] [address] Care Team Providers Care Social Media Marketing Manager Name Role Phone Elder Norma FERNÁNDEZ Primary Care Provider + [phone] Encounter Details Date Type Department Care Team (Latest Contact Info) Description 07/22/2024 Travel Social History Tobacco Use Types Packs/Day Years Used Date Smoking Tobacco: Never Smokeless Tobacco: Never Alcohol Use Standard Drinks/Week Comments Never 0 (1 standard drink = 0.6 oz pur e alcohol) [facility] Utilities Answer Date Recorded In the past 12 months has [employer] electric, gas, oil, or water company threatened [...] and heating? Not hard at all 05/28/2024 [facility] of Occupat ional Health - Occupational Stress [...] GED or equivalent No 05/28/2024 Preferred Language Yoruba 05/28/2024 PHQ-2 Answer Date Recorded Patient Health [...] Description 01/20/2025 3:30 PM EST Office Visit [facility] GASTROENTEROLOGY [address] [facility] [address] [place] [address] Robbin Escalante MD [address] [facility] [address] [place] [address] documented as of this encounter Visit Diagnoses Not on filedocumented in this encounter Additional Health Concerns Assessment Noted Time PHQ-2 Depression Total Score: 2 05/28/19 25 4:39 PM EDT documented as of this encounter Care Teams Social Media Marketing Manager Relationship Specialty Start Date End Date Norma Friedman APRN [address] [place] [address] [place] [address] PCP - General Family Medicine 05/14/24 documented as of this encounter
--- OUTSIDE RECORDS SUMMARY | 2024-09-11 08:03 | XMS_ITS | Encounter Summary ---
Author Organization Healthcare Address [address] [place] [address] Care Team Providers Care Talent Scout Name Role Phone Unavailable Primary Care Provider Unavailabl e Encounter Details Date Type Department Care Team (Late st Contact Info) Description 07/22/2024 Community Orders Community Practice [address] [place] [address] Sandy Cardenas MD 1700 [facility] [address] [place] [phone] Social History Tobacco Use Types Packs/Day Years [...]
== END 2024-09-09 23:59 | disposition home or self-care (01) ==
LOC: LAB.DROPOF 09-11 07:56
PROVIDERS: PCP Nurse Practitioner Family; Visit Provider Nurse Practitioner Obstetrics & Gynecology
DX: O21.9 Vomiting of pregnancy, unspecified (principal); O26.20 Pregnancy care for patient with recurrent pregnancy loss, unspecified trimester; Z3A.00 Weeks of gestation of pregnancy not specified
CPT/HCPCS: 87086

== ENCOUNTER 2024-09-09 08:44 | Outpatient (CLI) | payer OTHER, SELFPAY ==
--- OUTSIDE RECORDS SUMMARY | 2024-07-22 07:44 | XMS_ITS | Encounter Summary ---
Author Organization [facility] Address [address] [place] [phone] Care Team Providers Care Battery Loader Name Role Phone Norma Friedman APRN Primary Care Provider + [phone] Reason for Referral * Diagnostic Imaging (Routine) - Closed Specialty Diagnoses / Procedures Referred By Tarik pedersen Referred To Contact Radiology Diagnoses care, antepartum, unspecified High risk due to history of labor, antepartum History of prior with small for gestational age Procedures US [facility] Kelly Watkins APRN [address] [facility] [address] [place] [address] Phone: tel: fax: [facility] US PER DIAG CTR [address] [place] [address] Phone: tel: Referral ID Status Reason Start Date Expiration Date Visits Re quested Visits Authorized [id number] Closed 07/08/2024 10/07/2025 1 1 Reason for Visit * Diagnostic Imaging (Routine) - Closed Specialty Diagnoses / Procedures Referred By Tarik t Referred To Contact Radiology Diagnoses care, antepartum, unspecified High risk due to history of labor, antepartum History of prior with small for gestational age Procedures [facility] Kelly Watkins APRN [address] [facility] [address] [place] [address] Phone: tel: fax: [facility] US PER DIAG CTR [address] [place] [address] Phone: tel: Referral ID Status Reason Start Date Expiration Date Visits Re quested Visits Authorized [id number] Closed 07/08/2024 10/07/2025 1 1 Encounter Details Date Type Department Care Team (Late st Contact Info) Description 07/22/2024 7:44 AM EDT - 07/22/2024 11:59 PM EDT Hospital Encounter [facility] PER DIAG CTR [address] [place] [phone] Kelly Watkins, WORKGROUP LEADER [address] [place] [address] care, antepartum, unspecified ; High risk due to history of labor, antepartum; History of prior with small for gestational age Discharge Disposition: Home or Self Care Social History Tobacco Use Types Packs/Day Years Used Date Smoking Tobacco: Never Smokeless Tobacco: Never Alcohol Use Standard Drinks/Week Comments Never 0 (1 standard drink = 0.6 oz pur e alcohol) [facility] Utilities Answer Date Recorded In the past 12 months has [employer] electric, gas, oil, or water [employer] threatened to shut off services in your [...] and heating? Not hard at all 05/28/2024 [facility] [place] of Occupat ional Health - Occupational Stress [...] GED or equivalent No 05/28/[address] [place] 05/28/2024 PHQ-2 Answer Date Recorded Patient Health [...] Description 01/20/2025 3:30 PM EST Office Visit [facility] GASTROENTEROLOGY [address] [address] Robbin Escalante MD [address] [address] documented as of this encounter Procedures Procedure Name Priority Date/Time Associated Diagnosis Comments [facility] Routine 07/22/2024 9:10 AM EDT care, antepartum, unspecified High risk due to history of labor, antepartum History of prior with small for gestational age documented in this encounter Results * [facility] (07/22/2024 9:10 AM EDT) Anatomical Region Laterality Modality Ultrasound 07/22/2024 8:20 AM EDT Narrative 07/22/2024 9:18 AM EDT PAT NAME: CAROLE [place] MED REC#: [id number] DA: 1990 PAT GEND: F PAT TYPE: O EXAM TRAVIS: [id number] REF PHYS KELLY WATKINS Comparison Studies There [...] EFW (oz) 13 oz EFW by: Hadlock (TQQ-GJ-QT-FL) Extended Tibia 28.0 mm 20w 1d 17% Jamal Fibula 27.3 mm 19w 5d 17% Jamal Radius 26.9 mm 20w 0d 36% Jamal Ulna 30.0 mm 21w 1d 33% Jamal Cav. septi pel. tr 3.7 mm Chief [employer] 5.4 mm CM 4.7 mm 32% Nicolaides [...] normal IVC: normal 3-vessel view: Appears normal 8-ovxwlv-moymbnf view: Appears normal Rt lung: Appears normal [...] Follow-up as clinically indicated. Coding ======= Description: 22813-55 Detailed Regulatory Attorney: Cheyenne Spence RDMS Physician: Sebastian Larsen MD, FACOG Electronically signed by: Sebastian Larsen MD, FACOG at: 09:18 Procedure Note Sebastian Larsen MD - 07/22/2024 PAT NAME: CAROLE [place] MED REC#: [id number] DA: [id number] PAT GEND: F PAT TYPE: O EXAM TRAVIS: [id number] REF PHYS KELLY WATKINS Comparison Studies There are no relevant prior studies to which this study is beingcompared Patient Status Outpatient Indication ======== Incomplete anatomy, previous SGA, hx c/s x1 Maternal Assessment Pjaeij064 cm Height (ft)5 ft Height (in)4 in Sfdiwu87 kg Weight (lb)163 lb BMI28.17 kg/m Method ======= Transabdominal ultrasound examination ========= Love . Number of fetuses: 1 Dating ====== Method of dating:based on stated DUSTY GA by prior udlyszhdqx22 w + 1 d DUSTY by prior assessment:12/01/2024 Ultrasound examination on:07/22/2024 GA by U/S based upon:AC, BPD, Femur, HC GA by U/S20 w + 5 d DUSTY by U/S:12/04/2024 Previous dating:based on stated DUSTY, selected on 07/05/2024 Agreed DUSTY of previous datin12/01/2024 Assigned:based on stated DUSTY, selected on 07/22/2024 Assigned GA21 w + 1 d Assigned DUSTY:12/01/2024 kvfmev780 d Biometry Standard BPD47.5 mm 20w 3d 19% Hadlock OFD63.7 mm 21w 5d 69% Jamal HC177.8 mm 20w 2d 9% Hadlock Cerebellum tr22.0 mm 20w 4d 46% Hill AC160.4 mm 21w 1d 43% Hadlock Femur33.9 mm 20w 5d 24% Hadlock Awnhpnx34.7 mm 21w 0d 40% Jamal HC / AC1.11 XMV521 g 20w 5d 29% Hadlock EFW (lb)0 lb EFW (oz)13 oz EFW by:Hadlock (ZNK-VW-RP-FL) Extended Tibia28.0 mm 20w 1d 17% Jamal Dhwsgh67.3 mm 19w 5d 17% Jamal Nvdwdg52.9 mm 20w 0d 36% Jamal Ulna30.0 mm 21w 1d 33% Jamal Cav. septi pel. tr3.7 mm Vp5.4 mm CM4.7 mm 32% Nicolaides Head / Face / Neck Cephalic index0.75 11% Nicolaides Extremities / Bony Struc FL / BPD0.71 FL / HC0.19 FL / AC0.21 Other Structures LIC140 bpm General Evaluation Cardiac activity present. FHR [...] view:Appears normal SVC:normal IVC:normal 3-vessel view:Appears normal 9-fotclr-apfibkb view:Appears normal Rt lung:Appears normal Lt lung:normal [...] Structures Uterus / Cervix Cervix:Visualized Approach:Transabdominal Cervical aeybuh88.6 mm Ovaries / Tubes / Adnexa Rt ovary:Visualized Lt ovary:Visualized Impression Today's exam reveals a SIUP with biometry consistent with dates. Fetalanatomic survey appears normal. Fluid is normal. The placenta is anterior,left. The TA cervical length appears adequate Recommendation Follow-up as clinically indicated. Coding ======= Description:80966-64 Detailed Regulatory Attorney: Cheyenne Spence RDMS Physician: Sebastian Larsen MD, FACOG Electronically signed by: Sebastian Larsen MD, FACOG at: 09:18 Result [facility] Kelly Watkins APRN [facility] US ORDERABLES Final Resu lt documented in this encounter Visit Diagnoses Diagnosis care, antepartum, unspecified High risk due to history of labor, antepartum History of prior with small for gestational age documented in this encounter Additional Health Concerns Assessment Noted Time PHQ-2 Depression Total Score: 2 05/28/19 25 4:39 PM EDT documented as of this encounter Care Teams Battery Loader Relationship Specialty Start Date End Date Norma Friedman APRN [address] [place] G3 [place]FA[place] APPIAH [address] PCP - General Family Medicine 05/14/24 documented as of this encounter
--- OUTSIDE RECORDS SUMMARY | 2024-07-22 08:00 | XMS_ITS | Encounter Summary ---
Author Organization [facility] Address [address] [place] [id number] Care Team Providers Care Rotary Drier Operator Name Role Phone Ivyashlyn Valentinoseven JOLENE Primary Care Provider + [phone] Reason for Visit * Reason Comments incomplete anatomy; hx SGA in prev. preg onelia; prev. c/s Encounter Details Date Type Department Care Team (Late st Contact Info) Description 07/22/2024 8:00 AM EDT Office Visit [facility] MATERNAL MEDICINE [address] [place] [address] [place] [address] Sebastian Larsen MD 1700 [facility] [address] [place] [phone] History of prior with small for gestational age (Primary Dx) Social History Tobacco Use Types Packs/Day Years Used Date Smoking Tobacco: Never Smokeless Tobacco: Never Alcohol Use Standard Drinks/Week Comments Never 0 (1 standard drink = 0.6 oz pur e alcohol) [facility] Utilities Answer Date Recorded In the past 12 months has [employer] electric, gas, oil, or water company threatened [...] and heating? Not hard at all 05/28/2024 [facility] [place] of Occupat ional Health - Occupational Stress [...] GED or equivalent No 05/28/2024 Preferred Language Sao Tomean 05/28/2024 PHQ-2 Answer Date Recorded Patient Health [...] Description 01/20/2025 3:30 PM EST Office Visit [facility] GASTROENTEROLOGY 1720 [facility] [address] [place] [address] Robbin Escalante MD 1720 [facility] [address] [place] [address] documented as of this encounter Visit Diagnoses Diagnosis History of prior with small for gestational age - Primary documented in this encounter Additional Health Concerns Assessment Noted Time PHQ-2 Depression Total Score: 2 05/28/19 25 4:39 PM EDT documented as of this encounter Care Teams Rotary Drier Operator Relationship Specialty Start Date End Date Norma Friedman APRN [address] [place] [address] [place] [address] PCP - General Family Medicine 05/14/24 documented as of this encounter
--- OUTSIDE RECORDS SUMMARY | 2024-07-22 09:10 | XMS_ITS | Encounter Summary ---
[facility] Address [address] [place] [phone] Care Team Providers Care Apprentice Carpenter Name Role Phone Norma Friedman APRN Primary Care Provider + [phone] Reason for Referral * Consultation (Routine) - Closed Specialty Diagnoses / Procedures Referred By Contac t Referred To Contact Nephrology Diagnoses History of proteinuria syndrome Procedures [place] OFFICE/OUTPATIENT NEW MODERATE MDM 45 MINUTES Staci Jain MD [address] [place] [address] Phone: tel: fax: [place] [address] Phone: tel: Referral ID Status Reason Start Date Expiration Date V isits Requested Visits Authorized [id number] Closed Specialty Services Required 07/22/2024 10/21/2025 1 1 Reason for Visit * Reason Comments Routine Visit * Diagnostic Imaging (Routine) - Closed Specialty Diagnoses / Procedures Referred By Contact Referred To Contact Obstetrics and Gynecology Diagnoses care, subsequent , second trimester Procedures US Ob 14 + Weeks Single or First Gestation Koby Roberts MD [address] [facility] [address] [place] [address] Phone: tel: fax: [facility] OBGYN [address] [place] [address] Phone: tel: fax: Referral ID Status Reason Start Date Expiration Date Visits Re quested Visits Authorized [id number] Closed 06/11/2024 09/10/2025 1 1 Encounter Details Date Type Department Care Team (Late st Contact Info) Description 07/22/2024 9:10 AM EDT Routine [facility] OBGYN [address] [phone] Staci Jain MD [address] [address] [place]: 21w1d Social History Tobacco Use Types Packs/Day Years Used Date Smoking Tobacco: Never Smokeless Tobacco: Never Alcohol Use Standard Drinks/Week Comments Never 0 (1 standard drink = 0.6 oz pur e alcohol) [facility] Utilities Answer Date Recorded In the past 12 months has [employer], gas, oil, or water [employer] threatened to shut off services in your [...] and heating? Not hard at all 05/28/2024 [facility] [place] of Occupat ional Health - Occupational Stress [...] GED or equivalent No 05/28/2024 Preferred Language Slovak 05/28/2024 PHQ-2 Answer Date Recorded Patient Health Questionnaire-9 Score 2 05/28/2024 Estimated Date of Delivery Comme nts Yes 12/01/2024 Based on last wi nstrual period of 02/25/2024 Sex and Gender [...] IUGR. Unknown reasons. Has not seen a student accounts manager This is my first time seeing patient. Transferred care. Will want to be seen in [facility]. Her care is complicated by (and status) [...] about 4 weeks (around 08/19/2024) for in [place]. Staci Jain MD 07/22/2024 documented in this encounter Plan of Treatment Upcoming Encounters Date Type Department Care Team (Late st Contact Info) Description 01/20/2025 3:30 PM EST Office Visit [facility] GASTROENTEROLOGY [address] [address] Robbin Escalante MD [address] [facility] [address] [address] Scheduled Orders Name Type Priority Associated Diagnoses [...] AM EDT) Glucose, UA Negative Negative mg/dL [facility] Protein, POC 1+(A) Negative mg/dL [facility] Urine 07/22/2024 10:0 2 AM EDT Staci Jain MD POINT OF CARE TEST OR DERABLES Final Result [facility]
[address] [place] [address], documented in this encounter Visit Diagnoses Diagnosis Multigravida in second trimester- Primary care, subsequent , second trimester History of proteinuria syndrome History of Other postprocedural status documented in this encounter Additional Health Concerns Assessment Noted Time PHQ-2 Depression Total Score: 2 05/28/19 25 4:39 PM EDT documented as of this encounter Care Teams Apprentice Carpenter Relationship Specialty Start Date End Date Norma Friedman APRN [address] [place] [address] [place] [id number] PCP - General Family Medicine 05/14/24 documented as of this encounter
--- OUTSIDE RECORDS SUMMARY | 2024-08-19 10:15 | XMS_ITS | Encounter Summary ---
Author Organization [facility] Address [address] [place] [address] Care Team Providers Care Electric Clock Mechanic Name Role Phone Norma Friedman APRN Primary Care Provider + [phone] Reason for Visit * Reason Comments Routine Visit Encounter Details Date Type Department Care Team (Late st Contact Info) Description 08/19/2024 10:15 AM EDT Routine [facility] OBGYN [address] [place] [address] Jacey Mathews, GRAVE CLEANER [address] [place] [address] GA: 25w1d Social History Tobacco Use Types Packs/Day Years Used Date Smoking Tobacco: Never Smokeless Tobacco: Never Alcohol Use Standard Drinks/Week Comments Never 0 (1 standard drink = 0.6 oz pur e alcohol) [facility] Utilities Answer Date Recorded In the past 12 months has [employer], gas, oil, or water [employer] threatened to shut off services in your [...] and heating? Not hard at all 05/28/2024 [facility] [place] [facility] - Occupational Stress Questionnaire Answer Date [...] GED or equivalent No 05/28/2024 Preferred Language Bhutanese 05/28/2024 PHQ-2 Answer Date Recorded Patient Health [...] this encounter Progress Notes * Jacey Mathews, GRAVE CLEANER - 08/19/2024 10:15 AM EDT Images from [...] and historical information as entered above. Jacey iKser APRN BP 110/70 Wt 72.1 kg (159 [...] Description 01/20/2025 3:30 PM EST Office Visit [facility] GASTROENTEROLOGY [address] [facility] [address] [place] [address] Robbin Escalante MD [address] [facility] [address] [place] [address] documented as of this encounter Visit Diagnoses Diagnosis Vaginal bleeding in - Primary 25 weeks gestation of documented in this encounter Additional Health Concerns Assessment Noted Time PHQ-2 Depression Total Score: 2 05/28/19 25 4:39 PM EDT documented as of this encounter Care Teams Electric Clock Mechanic Relationship Specialty Start Date End Date Norma Friedman APRN [address] [place] [address] [place] [id number] PCP - General Family Medicine 05/14/24 documented as of this encounter
--- OUTSIDE RECORDS SUMMARY | 2024-08-19 13:59 | XMS_ITS | Encounter Summary ---
[facility] [address] [place] [address] Care Team Providers Care Mechatronics Technician Name Role Phone Ivyashlyn Norma FERNÁNDEZ Primary Care Provider + [phone] Reason for Visit * Reason Comments Vaginal Bleeding * Auth/Cert (Routine) Specialty Diagnoses / Procedures Referred By Contleyla t Referred To Contact Referral ID Status Reason Start Date Expiration Date Visits Re quested Visits Authorized [id number] 1 1 Encounter Details Date Type Department Care Team (Late st Contact Info) Description 08/19/2024 1:59 PM EDT - 08/20/2024 4:28 PM EDT Hospital Encounter [facility] [address] [place] [phone] Rob Wharton MD [address] [facility] [address] [place] [address] Blu Alvarado MD [address] [facility] [address] [place] [address] Dysphagia, unspecified type (Primary Dx) Discharge Disposition: Home or Self Care Social History Tobacco Use Types Packs/Day Years Used Date Smoking Tobacco: Never Smokeless Tobacco: Never Alcohol Use Standard Drinks/Week Comments Never 0 (1 standard drink = 0.6 oz pur e alcohol) [facility] Utilities Answer Date Recorded In the past 12 months has [employer], gas, oil, or water [employer] threatened to shut off services in your [...] and heating? Not hard at all 05/28/2024 [facility] [place] of Occupat ional Health - Occupational Stress [...] 1:23 PM EDT Polly Lacey RN * [place] Suicide Severity Rating Scale (Screener/Recent Self-Report) Question Answer Date of Assessment Author 6. Suicidal Behavior (Lifetime) No 1:23 PM EDT Polly Cabrera RN documented as of this encounter Discharge Instructions * Attachments The following attachments cannot be sent through Care Everywhere. * Second Trimester of ([place]) * Upper Endoscopy Adult Care After ([place]) documented in this encounter Medications at Time [...] 08/19/2024 RH Positive 08/19/2024 ABSCRN Negative 08/19/2024 [id number] non-reactive 04/12/2024 HEPCVIRUSABY negative 04/12/2024 URINECX Final [...] from the original note were not included. [facility] Obstetric History and Physical Referring Provider: [...] her third trimesters prior pregnancies(etiology unknown). Patient's clinical rn liaison is in [facility]. She states has never had [...] IUPC: Resting Tone: Resting Tone by IUPC: [place] Units: Laboratory Results: Lab Results (last 24 [...] AM EDTAssociated Order(s): IP CONSULT TO GASTROENTEROLOGY [facility] Gastroenterology Consult Referring Provider: [...] expresses concern regarding recent CT scan at [facility] revealing a hiatal hernia. CT scan done prior to most recent due to ovarian cyst and incidentally revealed hiatal hernia. She reports chronic gastrointestinal symptoms. Review of medical record revealed prior GI referral due to blood per rectum. She reports colonoscopy in 2020 at outside facility that revealed diverticulosis and benign colon polyp. She is currently established with provider at [facility] for gastroenterology care she [...] , await recommendations following EGD - consider DEEP FAT FRY COOK evaluation if no etiology for difficulty swallowing [...] from the original note were not included. [facility] Obstetric History and Physical Referring Provider: [...] her third trimesters prior pregnancies(etiology unknown). Patient's clinical rn liaison is in [facility]. She states has never had [...] IUPC: Resting Tone: Resting Tone by IUPC: [place] Units: Laboratory Results: Lab Results (last 24 [...] Description 01/20/2025 3:30 PM EST Office Visit [facility] GASTRO[facility]OLOG[facility] [address] [phone] Robbin Escalante MD [address] [address] documented as of this encounter Procedures Procedure Name Priority Date/Time Associated Diagnosis Comments TISSUE PATHOLOGY EXAM Routine 08/20/2024 1:55 PM EDT Dysphagia, unspecified type [place] ESOPHAGOGASTRODUODENOSCOP Y TRANSORAL DIAGNOSTIC 08/20/2024 1:44 PM EDT Dysphagia, unspecified type UPPER GI ENDOSCOPY 08/20/2024 1:09 PM EDT BASIC METABOLIC PANEL STAT 08/20/2024 5:25 AM EDT POTASSIUM STAT 08/19/2024 8:53 PM EDT ABORH 2ND SPECIMEN VERIFICATION STAT 08/19/2024 4:34 PM EDT NONSTRESS TEST Routine 08/19/2024 4:17 PM EDT [facility] Routine 08/19/2024 3:25 PM [...] EDT) Case Report Surgical Pathology Report Case: [id number] Authorizing Provider: Blu Alvarado MD Collected: 08/20/2024 01:55 PM Ordering Location: [facility] Received: 08/20/2024 02:14 PM ENDO SUITES Pathologist: Khalida Rhoades DO Specimen: Gastric, Antrum, antrum bx for path 08/22/2024 9:18 AM EDT [facility] Clinical Information Dysphagia, unspecified type 08/22/2024 9:18 AM EDT [facility] Final Diagnosis Stomach, antrum, biopsy: 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 pylori is negative (no organisms are identified) Negative for intestinal metaplasia, dysplasia, or malignancy 08/22/2024 9:18 AM EDT [facility] at 0918 EDT Gross Description 1. Gastric, Antrum. Received in formalin labeled antrum biopsy is a 0.4 x 0.2 x 0.2 cm pink-see soft tissue fragment submitted entirely in a single cassette. HDM 08/22/2024 9:18 AM EDT [facility] Microscopic Description The slides are reviewed and demonstrate histopathologic features supporting the above rendered diagnosis. 08/22/2024 9:18 AM EDT [facility] Tissue Pyloric antrum structure / Unknown 08/20/2024 1:55 PM EDT 08/20/2024 2:14 PM EDT us Blu Alvarado MD PATHOLOGY/CYTOLOGY ORDERABLES Final Result [facility]
[address] [place] [address], * Upper GI Endoscopy (08/20/2024 1:09 PM EDT) us Blu Alvarado MD INTERFACE NEEDS Final Result * (ABNORMAL) Basic Metabolic Panel (08/20/2024 5:25 AM EDT) Glucose 84 65 - 99 mg/dL 08/20/2024 6:13 AM EDT [facility] BUN 2.3(L) 6.0 - 20.0 mg/dL 08/20/2024 6:13 AM EDT [facility] Creatinine 0.51(L) 0.57 - 1.00 mg/dL 08/20/2024 6:13 AM EDT [facility] Sodium 139 136 - 145 mmol/L 08/20/2024 6:13 AM EDT [facility] Potassium 3.5 3.5 - 5.2 mmol/L 08/20/2024 6:13 AM EDT [facility] Chloride 109(H) 98 - 107 mmol/L 08/20/2024 6:13 AM EDT [facility] CO2 23.5 22.0 - 29.0 mmol/L 08/20/2024 6:13 AM EDT [facility] Calcium 7.8(L) 8.6 - 10.5 mg/dL 08/20/2024 6:13 AM EDT [facility] BUN/Creatinine Ratio 4.5(L) 7.0 - 25.0 08/20/2024 6:13 AM EDT [facility] Anion Gap 6.5 5.0 - 15.0 mmol/L 08/20/2024 6:13 AM EDT [facility] eGFR 126.6 >60.0 mL/min/1.7 3 08/20/2024 6:13 AM T [facility] Blood Venipuncture / Unknown 08/20/2024 5:25 AM EDT 08/20/2024 5:46 AM EDT [facility] - 08/20/2024 6:13 AM EDT [...] does not include race as a factor us Hernando Vargas MD LAB BLOOD ORDERABLES Final Resu lt [facility]
[address] [place] [address], * (ABNORMAL) Potassium (08/19/2024 8:53 PM EDT) Potassium 2.7(L) 3.5 - 5.2 mmol/L 08/19/2024 9:20 PM EDT [facility] Blood Venipuncture / Unknown 08/19/2024 8:53 PM EDT 08/19/2024 9:04 PM EDT Kt Fan DO LAB BLOOD ORDERABLES Final Result Performing Organization Address City/[facility] [address]/ZIP Co de Phone Number [facility]
[address] [place] [address], * ABO RH Specimen Verification (08/19/2024 4:34 PM EDT) ABO Type O 08/19/2024 7:39 PM EDT [facility] RH type Positive 08/19/2024 7:39 PM EDT [facility] Blood Venipuncture / Unknown 08/19/2024 4:34 PM EDT 08/19/2024 4:53 PM EDT Rob Wharton MD BLOOD BANK TEST ORDER FRANCO Final Result Performing Organization Address City/[facility] [address]/ZIP Co de Phone Number [facility]
[address] [place] [address], * [facility] (08/19/2024 3:25 PM EDT) Anatomical Region Laterality Modality Ultrasound 08/19/2024 3:09 PM EDT Narrative 08/19/2024 4:54 PM EDT PAT NAME: ERA CAROLE MED REC#: [id number] DA: 1990 PAT GEND: F PAT TYPE: E EXAM TRAVIS: [id number] REF PHYS ROB WHARTON Comparison Studies The [...] EFW (oz) 9 oz EFW by: Hadlock (GOH-DT-YJ-FL) Extended Cav. septi pel. tr 4.7 mm Dot Net Developer 3.8 mm CM 7.5 mm 84% Nicolaides [...] Heart / Thorax 3-vessel view: Appears normal 2-ignhyf-fsmwepq view: Appears normal Stomach: Appears normal Kidneys: [...] in 4wks for growth. Coding ======= Description: 53096-31 Follow Up Side Laster: RT Mary Kate R , [facility] Physician: Jo Chappell MD Electronically signed by: Jo Chappell MD at: 16:54 Procedure Note Jo Chappell MD - 08/19/2024 PAT NAME: CAROLE GIRARD MED REC#: [id number] DA: 1990 PAT GEND: F PAT TYPE: E EXAM TRAVIS: [id number] REF PHYS ROB WHARTON Comparison Studies The findings of this study are compared to the prior ultrasound studydated 07/22/24 Patient Status Inpatient Indication ======== History of c/s x1. History of . Vaginal bleeding. Maternal Assessment Ptrfyd469 cm Height (ft)5 ft Height (in)4 in Dhqxav40 kg Weight (lb)158 lb BMI27.31 kg/m Method ======= Transabdominal ultrasound examination. View: Limited by patient bodyhabitus ========= Love . Number of fetuses: 1 Dating ====== Method of dating:based on stated DUSTY GA by prior [id number] w + 1 d DUSTY by prior assessment:12/01/2024 Ultrasound examination on:08/19/2024 GA by U/S based upon:AC, BPD, Femur, HC GA by U/S24 w + 2 d DUSTY by U/S:12/07/2024 Previous dating:based on stated DUSTY, selected on 07/22/2024 Agreed DUSTY of previous datin12/01/2024 Assigned:based on stated DUSTY, selected on 08/19/2024 Assigned GA25 w + 1 d Assigned DUSTY:12/01/2024 [id number] d Biometry Standard BPD57.6 mm 23w 4d 5% Hadlock OFD81.6 mm 26w 4d 88% Jamal HC225.7 mm 24w 4d 13% Hadlock Cerebellum tr28.9 mm 25w 2d 62% Hill AC194.9 mm 24w 1d 15% Hadlock Femur44.9 mm 24w 6d 27% Hadlock Qtrehcs93.3 mm 25w 3d 50% Jamal HC / AC1.16 GUX563 g 24w 2d 16% Hadlock EFW (lb)1 lb EFW (oz)9 oz EFW by:Hadlock (CMU-OC-SD-FL) Extended Cav. septi pel. tr4.7 mm Vp3.8 mm CM7.5 mm 84% Nicolaides Head / Face / Neck Cephalic index0.71 <1% Nicolaides Extremities / Bony Struc FL / BPD0.78 FL / HC0.20 FL / AC0.23 Other Structures RDP063 bpm General Evaluation Cardiac activity present. FHR [...] normal Heart / Thorax 3-vessel view:Appears normal 7-grpgds-[place] view:Appears normal Stomach:Appears normal Kidneys:Appears normal Bladder:Appears normal Gender:female Wants to know gender:yes Maternal Structures Uterus / Cervix Cervix:Visualized Approach:Transabdominal Cervical fsstev98.9 mm Doppler Arterial Umbilical A PI1.01 32% [...] office in 4wks for growth. Coding ======= Description:17885-33 Follow Up Side Laster: RT Annetta Hartmann , [place] Physician: Jo Chappell MD Electronically signed by: Jo Chappell MD at: 16:54 us Kt Fan DO [facility] [place] ORDERABLES Final Res ult * Protein / Creatinine Ratio, Urine - Urine, Clean Catch (08/19/2024 3:02 PM EDT) Protein/Creati nine Ratio, Urine 126.1 0.0 - 200.0 mg/G Crea 08/20/2024 12:47 AM EDT [facility] Creatinine, Urine 148.3 mg/dL 08/20/2024 12:47 AM EDT [facility] Total Protein, Urine 18.7 mg/dL 08/20/2024 12:47 AM EDT [facility] Urine Urine specimen obtained by clean catch procedure / Unknown Collection / Unknown 08/19/2024 3:02 PM EDT 08/19/2024 4:26 PM EDT Kt Fan DO URINE ORDERABLES Final Resu lt [facility]
[address] [place] [address], [place] [phone] * (ABNORMAL) Magnesium (08/19/2024 3:02 PM EDT) Magnesium 1.5(L) 1.6 - 2.6 mg/dL 08/19/2024 5:12 PM EDT [facility] Blood Line / Unknown 08/19/2024 3: 02 PM EDT 08/19/2024 3:10 PM EDT Kt Fan DO LAB BLOOD ORDERABLES Final Result Performing Organization Address City/[facility] [address]/ZIP Co de Phone Number [facility]
[address] [place] [address], [place] [phone] * Urinalysis, Microscopic Only - Urine, Clean Catch (08/19/2024 3:02 PM EDT) RBC, UA 0-2 None Seen, 0-2 /HPF 08/19/2024 3:33 PM EDT [facility] WBC, UA 0-2 None Seen, 0-2 /HPF 08/19/2024 3:33 PM EDT [facility] Bacteria, UA None Seen None Seen /HPF 08/19/2024 3:33 PM EDT [facility] Squamous Epithelial Cells, UA 0-2 None Seen, 0-2 /HPF 08/19/2024 3:33 PM EDT [facility] Hyaline Casts, UA None Seen None Seen /LPF 08/19/2024 3:33 PM EDT [facility] Methodology Automated Microscopy 08/19/2024 3:33 PM EDT [facility] Urine Urine specimen obtained by clean catch procedure / Unknown Collection / Unknown 08/19/2024 3:02 PM EDT 08/19/2024 3:13 PM EDT us Kt Fan DO URINE ORDERABLES Final Resu lt [facility]
[address] [place] [address], [place] [phone] * (ABNORMAL) CBC Auto Differential (08/19/2024 3:02 PM EDT) WBC 9.19 3.40 - 10.80 10*3/mm3 08/19/2024 3:23 PM EDT [facility] RBC 3.58(L) 3.77 - 5.28 10*6/mm3 08/19/2024 3:23 PM EDT [facility] Hemoglobin 10.5(L) 12.0 - 15.9 g/dL 08/19/2024 3:23 PM EDT [facility] Hematocrit 31.4(L) 34.0 - 46.6 % 08/19/2024 3:23 PM EDT [facility] MCV 87.7 79.0 - 97.0 fL 08/19/2024 3:23 PM EDT [facility] MCH 29.3 26.6 - 33.0 pg 08/19/2024 3:23 PM EDT [facility] MCHC 33.4 31.5 - 35.7 g/dL 08/19/2024 3:23 PM EDT [facility] RDW 13.4 12.3 - 15.4 % 08/19/2024 3:23 PM EDT [facility] RDW-SD 42.4 37.0 - 54.0 fl 08/19/2024 3:23 PM EDT [facility] MPV 12.0 6.0 - 12.0 fL 08/19/2024 3:23 PM EDT [facility] Platelets 241 140 - 450 10*3/mm3 08/19/2024 3:23 PM EDT [facility] Neutrophil % 66.8 42.7 - 76.0 % 08/19/2024 3:23 PM EDT [facility] Lymphocyte % 24.4 19.6 - 45.3 % 08/19/2024 3:23 PM EDT [facility] Monocyte % 7.6 5.0 - 12.0 % 08/19/2024 3:23 PM EDT [facility] Eosinophil % 0.7 0.3 - 6.2 % 08/19/2024 3:23 PM EDT [facility] Basophil % 0.2 0.0 - 1.5 % 08/19/2024 3:23 PM EDT [facility] Immature Grans % 0.3 0.0 - 0.5 % 08/19/2024 3:23 PM EDT [facility] Neutrophils, Absolute 6.14 1.70 - 7.00 10*3/mm3 08/19/2024 3:23 PM EDT [facility] Lymphocytes, Absolute 2.24 0.70 - 3.10 10*3/mm3 08/19/2024 3:23 PM EDT [facility] Monocytes, Absolute 0.70 0.10 - 0.90 10*3/mm3 08/19/2024 3:23 PM EDT [facility] Eosinophils, Absolute 0.06 0.00 - 0.40 10*3/mm3 08/19/2024 3:23 PM EDT [facility] Basophils, Absolute 0.02 0.00 - 0.20 10*3/mm3 08/19/2024 3:23 PM EDT [facility] Immature Grans, Absolute 0.03 0.00 - 0.05 10*3/mm3 08/19/2024 3:23 PM EDT [facility] nRBC 0.0 0.0 - 0.2 /100 WBC 08/19/2024 3:23 PM EDT [facility] Blood Line / Unknown 08/19/2024 3: 02 PM EDT 08/19/2024 3:10 PM EDT Kt Fan DO LAB BLOOD ORDERABLES Final Result [facility]
[address] [place] [address], * (ABNORMAL) Urinalysis With Microscopic If Indicated (No Culture) - Urine, Clean Catch (08/19/2024 3:02 PM EDT) Color, UA Yellow Yellow, Straw 08/19/2024 3:33 PM EDT [facility] Appearance, UA Clear Clear 08/19/2024 3:33 PM EDT [facility] pH, UA >=9.0(H) 5.0 - 8.0 08/19/2024 3:33 PM EDT [facility] Specific [place], UA 1.018 1.005 - 1.030 08/19/2024 3:33 PM EDT [facility] Glucose, UA Negative Negative 08/19/2024 3:33 PM EDT [facility] Ketones, UA 15 mg/dL (1+)(A) Negative 08/19/2024 3:33 PM EDT [facility] Bilirubin, UA Negative Negative 08/19/2024 3:33 PM EDT [facility] Blood, UA Negative Negative 08/19/2024 3:33 PM EDT [facility] Protein, UA 30 mg/dL (1+)(A) Negative 08/19/2024 3:33 PM EDT [facility] Leuk Esterase, UA Negative Negative 08/19/2024 3:33 PM EDT [facility] Nitrite, UA Negative Negative 08/19/2024 3:33 PM EDT [facility] Urobilinogen, UA 1.0 E.U./dL 0.2 - 1.0 E.U./dL 08/19/2024 3:33 PM EDT [facility] Urine Urine specimen obtained by clean catch procedure / Unknown Collection / Unknown 08/19/2024 3:02 PM EDT 08/19/2024 3:13 PM EDT Kt Fan DO URINE ORDERABLES Final Resu lt Performing Organization Address [facility] [address]/ZIP Co de Phone Number [facility]
[address] [place] [address], [place] [phone] * Amylase (08/19/2024 3:02 PM EDT) Amylase 73 28 - 100 U/L 08/19/2024 3:36 PM EDT [facility] Blood Line / Unknown 08/19/2024 3: 02 PM EDT 08/19/2024 3:10 PM EDT Kt Fan DO LAB BLOOD ORDERABLES Final Result Performing Organization Address [facility] [address]/[facility] Co de Phone Number [facility]
[address] [place] [address], [place] [phone] * Lipase (08/19/2024 3:02 PM EDT) Lipase 13 13 - 60 U/L 08/19/2024 3:36 PM EDT [facility] Blood Line / Unknown 08/19/2024 3: 02 PM EDT 08/19/2024 3:10 PM EDT Kt Fan DO LAB BLOOD ORDERABLES Final Result Performing Organization Address [facility] [address]/ZIP Co de Phone Number [facility]
[address] [place] [address], [place] [phone] * (ABNORMAL) Comprehensive Metabolic Panel (08/19/2024 3:02 PM EDT) Glucose 75 65 - 99 mg/dL 08/19/2024 3:38 PM EDT [facility] BUN 3.6(L) 6.0 - 20.0 mg/dL 08/19/2024 3:38 PM EDT [facility] Creatinine 0.51(L) 0.57 - 1.00 mg/dL 08/19/2024 3:38 PM EDT [facility] Sodium 137 136 - 145 mmol/L 08/19/2024 3:38 PM T [facility] Potassium 2.6(LL) 3.5 - 5.2 mmol/L 08/19/2024 3:38 PM T [facility] Comment:Specimen hemolyzed. Result may be falsely elevated. Chloride 99 98 - 107 mmol/L 08/19/2024 3:38 PM T [facility] CO2 24.2 22.0 - 29.0 mmol/L 08/19/2024 3:38 PM T [facility] Calcium 8.8 8.6 - 10.5 mg/dL 08/19/2024 3:38 PM T [facility] Total Protein 6.6 6.0 - 8.5 g/dL 08/19/2024 3:38 PM T [facility] Albumin 3.4(L) 3.5 - 5.2 g/dL 08/19/2024 3:38 PM [facility] ALT (SGPT) 10 1 - 33 U/L 08/19/2024 3:38 PM [facility] AST (SGOT) 22 1 - 32 U/L 08/19/2024 3:38 PM T [facility] Alkaline Phosphatase 64 39 - 117 U/L 08/19/2024 3:38 PM T [facility] Total Bilirubin 0.5 0.0 - 1.2 mg/dL 08/19/2024 3:38 PM EDT [facility] Globulin 3.2 gm/dL 08/19/2024 3:38 PM T [facility] Comment:Calculated Result A/G Ratio 1.1 g/dL 08/19/2024 3:38 PM T [facility] BUN/Creatinine Ratio 7.1 7.0 - 25.0 08/19/2024 3:38 PM T [facility] Anion Gap 13.8 5.0 - 15.0 mmol/L 08/19/2024 3:38 PM EDT [facility] eGFR 126.6 >60.0 mL/min/1.7 3 08/19/2024 3:38 PM EDT [facility] Blood Line / Unknown 08/19/2024 3: 02 PM EDT 08/19/2024 3:10 PM EDT Narrative [facility] - 08/19/2024 3:38 PM EDT [...] Fan DO LAB BLOOD ORDERABLES Final Result [facility]
[address] [place] [address], * Type & Screen (08/19/2024 3:02 PM EDT) ABO Type O 08/19/2024 3:51 PM EDT [facility] RH type Positive 08/19/2024 3:51 PM EDT [facility] Antibody Screen Negative 08/19/2024 3:51 PM EDT [facility] T&S Expiration Date 08/22/2024 11:59:59 PM 08/19/2024 3:51 PM EDT [facility] Blood Line / Unknown 08/19/2024 3: 02 PM EDT 08/19/2024 3:15 PM EDT us Kt Fan DO BLOOD BANK TEST ORDERABLES Edited Result - Final [facility]
[address] [place] [id number], documented in this encounter Visit Diagnoses Diagnosis [...] 11:33 PM EDT 10 mEq 100 mL/hr New Bag 08/19/2024 10:35 PM EDT 10 mEq [...] BPA Driven Protocol Open Order & Select [facility] Electrolyte Replacement Protocol Algorithm to View Details [...] grapefruit juice. 1549 (Given - Provider: Pilar Verduzco, BRIT) diphenhydrAMINE (BENADRYL) injection 25 mg (COMPLETED) 25 [...] 1800 1743 (New Bag - Provider: Pilar Verduzco, BRIT) 0838 (New Bag - Provider: Pilar Verduzco, RN) lactated ringers bolus 1,000 mL (COMPLETED) [...] down infusion)223 (New Bag - Provider: Yun Nicole RN)2333 (New Bag - Provider: Yun Nicole RN) [...] Verduzco, RN)1148 (New Bag - Provider: Pilar Verduzco RN)1215 (Due)1315 (Due) Sod Citrate-Citric Acid (BICITRA) [...] 30 minutes. 1604 (Given - Provider: Nneka Cross RN) Continuous Medication Order 08/18/2024 08/19/2024 08/20/2024 dextrose 5 % and lactated Ringer's infusion 125 mL/hr, Intravenous, Continuous, Starting on Mon08/19/24 at 1830, For 1 day 2151 (New Bag - Provider: Yun Nicole, RN) 0438 (New Bag - Provider: Yun Nicole RN)0838 (Stopped - Provider: Pilar Verduzco, RN)1043 (New Bag - Provider: Pilar Verduzco, [...] documented as of this encounter Care Teams Mechatronics Technician Relationship Specialty Start Date End Date Norma Friedman APRN [address] [place] G3 [place]IAH [id number] PCP - General Family Medicine 05/14/24 documented as of this encounter
--- OUTSIDE RECORDS SUMMARY | 2024-08-20 13:33 | XMS_ITS | Encounter Summary ---
[facility] Address [address] [place] [address] Care Team Providers Care Shoder Filler Name Role Phone Norma Friedman APRN Primary Care Provider + [phone] Reason for Visit * Reason Comments Vaginal Bleeding * Auth/Cert (Routine) Specialty Diagnoses / Procedures Referred By Tarik t Referred To Contact Referral ID Status Reason Start Date Expiration Date Visits Re quested Visits Authorized [id number] 1 1 Encounter Details Date Type Department Care Team (Late st Contact Info) Description 08/20/2024 1:33 PM EDT - 08/20/2024 2:05 PM EDT Surgery [facility] [address] [place] [address] Blu Alvarado MD [address] [facility] [address] [place] [address] ESOPHAGOGASTRODUODENOSCOPY [57187 (CPT )] Social History Tobacco Use Types [...] and heating? Not hard at all 05/28/2024 [facility] - Occupational Stress Questionnaire Answer Date [...] or equivalent No 05/28/[address] [place] 05/28/2024 PHQ-2 Answer Date Recorded Patient Health [...] 1:23 PM EDT Polly Lacey RN * [place] Suicide Severity Rating Scale (Screener/Recent Self-Report) Question Answer Date of Assessment Author 6. Suicidal Behavior (Lifetime) No 1:23 PM EDT Polly Cabrera RN documented as of this encounter Discharge Instructions * Attachments The following attachments cannot be sent through Care Everywhere. * Second Trimester of ([place]) * Upper Endoscopy Adult Care After ([place]) documented in this encounter Medications at Time [...] 08/19/2024 RH Positive 08/19/2024 ABSCRN Negative 08/19/2024 [id number] non-reactive 04/12/2024 HEPCVIRUSABY negative 04/12/2024 URINECX Final [...] IUPC: Resting Tone: Resting Tone by IUPC: [place] Units: Cervix: Exam by: Method: sterile vaginal [...] in this encounter H&P Notes * Kt Fan, DO - 08/19/2024 4:18 PM EDT Potassium 2.6, replace potassium start proton pump inhibitors every 12, and GI consult. Source Note - Kt Fan DO - 08/19/2024 2:58 PM EDT Images from the original note were not included. [facility] Obstetric History and Physical Referring Provider: [...] her third trimesters prior pregnancies(etiology unknown). 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 She states has never had a [...] IUPC: Resting Tone: Resting Tone by IUPC: [place] Units: Laboratory Results: Lab Results (last 24 [...] EDTAssociated Order(s): IP CONSULT TO [facility] Referring Provider: Dr. Fan/Dr. Wharton PCP: Fryman, Eugonda, MINE SUPERVISOR Reason for Consultation: IUP 25 weeks gestation, [...] expresses concern regarding recent CT scan at [facility] revealing a hiatal hernia. CT scan done prior to most recent due to ovarian cyst and incidentally revealed hiatal hernia. She reports chronic gastrointestinal symptoms. Review of medical record revealed prior GI referral due to blood per rectum. She reports colonoscopy in 2020 at outside facility that revealed diverticulosis and benign colon polyp. She is currently established with provider at [facility] for gastroenterology care she reports repeat [...] , await recommendations following EGD - consider HEAD OF PRECISION TARGETING evaluation if no etiology for difficulty swallowing [...] encounter Miscellaneous Notes * BOOM Notes - tK Fan, - 08/19/2024 2:58 PM EDT Images from the original note were not included. [facility] Obstetric History and Physical Referring Provider: [...] her third trimesters prior pregnancies(etiology unknown). 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 She states has never had a [...] IUPC: Resting Tone: Resting Tone by IUPC: [place] Units: Laboratory Results: Lab Results (last 24 [...] Visit [facility] GASTR[facility]OLOGY [address] [address] Robbin Escalante MD [address] [address] documented as of this encounter Procedures Procedure [...] NONSTRESS TEST Routine 08/19/2024 4:17 PM EDT [facility] Routine 08/19/2024 3:25 PM [...] EDT) Case Report Surgical Pathology Report Case: [id number] Authorizing Provider: Blu Alvarado MD Collected: 08/20/2024 01:55 PM Ordering Location: [facility] Received: 08/20/2024 02:14 PM ENDO SUITES Pathologist: Khalida Rhoades DO Specimen: Gastric, Antrum, antrum bx for path 08/22/2024 9:18 AM EDT [facility] Clinical Information Dysphagia, unspecified type 08/22/2024 9:18 AM EDT [facility] Final Diagnosis Stomach, antrum, biopsy: 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 pylori is negative (no organisms are identified) Negative for intestinal metaplasia, dysplasia, or malignancy 08/22/2024 9:18 AM EDT [facility] at 0918 EDT Gross Description 1. Gastric, Antrum. Received in formalin labeled antrum biopsy is a 0.4 x 0.2 x 0.2 cm pink-see soft tissue fragment submitted entirely in a single cassette. HDM 08/22/2024 9:18 AM EDT [facility] Microscopic Description The slides are reviewed and demonstrate histopathologic features supporting the above rendered diagnosis. 08/22/2024 9:18 AM EDT [facility] Tissue Pyloric antrum structure / Unknown 08/20/2024 1:55 PM EDT 08/20/2024 2:14 PM EDT us Blu Alvarado MD PATHOLOGY/CYTOLOGY ORDERABLES Final Result Performing Organization Address City/State/[facility] Co de Phone Number [facility]
[address] [place] [address], * Upper GI Endoscopy (08/20/2024 1:09 PM EDT) us Blu Alvarado MD INTERFACE NEEDS Final Result * (ABNORMAL) Basic Metabolic Panel (08/20/2024 5:25 AM EDT) Glucose 84 65 - 99 mg/dL 08/20/2024 6:13 AM EDT [facility] BUN 2.3(L) 6.0 - 20.0 mg/dL 08/20/2024 6:13 AM EDT [facility] Creatinine 0.51(L) 0.57 - 1.00 mg/dL 08/20/2024 6:13 AM EDT [facility] Sodium 139 136 - 145 mmol/L 08/20/2024 6:13 AM EDT [facility] Potassium 3.5 3.5 - 5.2 mmol/L 08/20/2024 6:13 AM EDT [facility] Chloride 109(H) 98 - 107 mmol/L 08/20/2024 6:13 AM EDT [facility] CO2 23.5 22.0 - 29.0 mmol/L 08/20/2024 6:13 AM EDT [facility] Calcium 7.8(L) 8.6 - 10.5 mg/dL 08/20/2024 6:13 AM EDT [facility] BUN/Creatinine Ratio 4.5(L) 7.0 - 25.0 08/20/2024 6:13 AM EDT [facility] Anion Gap 6.5 5.0 - 15.0 mmol/L 08/20/2024 6:13 AM EDT [facility] eGFR 126.6 >60.0 mL/min/1.7 3 08/20/2024 6:13 AM EDT [facility] Blood Venipuncture / Unknown 08/20/2024 5:25 AM EDT 08/20/2024 5:46 AM EDT Narrative [facility] - 08/20/2024 6:13 AM EDT GFR [...] include race as a factor us Hernando Vagras MD LAB BLOOD ORDERABLES Final Resu lt [facility]
[address] [place] [address], * (ABNORMAL) Potassium (08/19/2024 8:53 PM EDT) Potassium 2.7(L) 3.5 - 5.2 mmol/L 08/19/2024 9:20 PM EDT [facility] Blood Venipuncture / Unknown 08/19/2024 8:53 PM EDT 08/19/2024 9:04 PM EDT Kt Fan DO LAB BLOOD ORDERABLES Final Result Performing Organization Address [facility] Co de Phone Number [facility]
[address] [place] [address], * ABO RH Specimen Verification (08/19/2024 4:34 PM EDT) ABO Type O 08/19/2024 7:39 PM EDT [facility] RH type Positive 08/19/2024 7:39 PM EDT [facility] Blood Venipuncture / Unknown 08/19/2024 4:34 PM EDT 08/19/2024 4:53 PM EDT Rob Wharton MD BLOOD BANK TEST ORDER FRANCO Final Result Performing Organization Address [facility] Phone Number [facility]
[address] [place] [address], * [facility] (08/19/2024 3:25 PM EDT) Anatomical Region Laterality Modality Ultrasound 08/19/2024 3:09 PM EDT Narrative 08/19/2024 4:54 PM EDT PAT NAME: CAROLE GIRARD MED REC#: [id number] DA: 1990 PAT GEND: F PAT TYPE: E EXAM TRAVIS: [id number] REF PHYS ROB WHARTON Comparison Studies The [...] EFW (oz) 9 oz EFW by: Hadlock ([id number]) Extended Cav. septi pel. tr 4.7 mm Patrol Mother 3.8 mm CM 7.5 mm 84% Nicolaides [...] Heart / Thorax 3-vessel view: Appears normal 4-sojmpl-gpkzstd view: Appears normal Stomach: Appears normal Kidneys: [...] in 4wks for growth. Coding ======= Description: [id number] Follow Up Lean Coach: Alison Verduzco RT R , [place] Physician: Jo Chappell MD Electronically signed by: Jo Chappell MD at: 16:54 Procedure Note Jo Chappell MD - 08/19/2024 PAT NAME: CAROLE GIRARD MED REC#: [id number] DA: 1990 PAT GEND: F PAT TYPE: E EXAM TRAVIS: [id number] REF PHYS ROB WHARTON Comparison Studies The findings of this study are compared to the prior ultrasound studydated 07/22/24 Patient Status Inpatient Indication ======== History of c/s x1. History of . Vaginal bleeding. Maternal Assessment Cccwvz671 cm Height (ft)5 ft Height (in)4 in Nijypi18 kg Weight (lb)158 lb BMI27.31 kg/m Method ======= Transabdominal ultrasound examination. View: Limited by patient bodyhabitus ========= Love . Number of fetuses: 1 Dating ====== Method of dating:based on stated DUSTY GA by prior [id number] w + 1 d DUSTY by prior assessment:12/01/2024 Ultrasound examination on:08/19/2024 GA by U/S based upon:AC, BPD, Femur, HC GA by U/S24 w + 2 d DUSTY by U/S:12/07/2024 Previous dating:based on stated DUSTY, selected on 07/22/2024 Agreed DUSTY of previous datin12/01/2024 Assigned:based on stated DUSTY, selected on 08/19/2024 Assigned GA25 w + 1 d Assigned DUSTY:12/01/2024 [id number] d Biometry Standard BPD57.6 mm 23w 4d 5% Hadlock OFD81.6 mm 26w 4d 88% Jamal HC225.7 mm 24w 4d 13% Hadlock Cerebellum tr28.9 mm 25w 2d 62% Hill AC194.9 mm 24w 1d 15% Hadlock Femur44.9 mm 24w 6d 27% Hadlock Yrucmbi86.3 mm 25w 3d 50% Jamal HC / AC1.16 DAL279 g 24w 2d 16% Hadlock EFW (lb)1 lb EFW (oz)9 oz EFW by:Hadlock ([id number]) Extended Cav. septi pel. tr4.7 mm Vp3.8 mm CM7.5 mm 84% Nicolaides Head / Face / Neck Cephalic index0.71 <1% Nicolaides Extremities / Bony Struc FL / BPD0.78 FL / HC0.20 FL / AC0.23 Other Structures [id number] bpm General Evaluation Cardiac activity present. FHR [...] normal Heart / Thorax 3-vessel view:Appears normal 1-tvftni-cbzexjq view:Appears normal Stomach:Appears normal Kidneys:Appears normal Bladder:Appears normal Gender:female Wants to know gender:yes Maternal Structures Uterus / Cervix Cervix:Visualized Approach:Transabdominal Cervical yolosc94.9 mm Doppler Arterial Umbilical A PI1.01 32% [...] office in 4wks for growth. Coding ======= Description:[id number] Follow Up Lean Coach: Alison Verduzco RT R , [facility] Physician: Jo Chappell MD Electronically signed by: Jo Chappell MD at: 16:54 Kt Fan DO IMG US ORDERABLES Final Res ult * Protein / Creatinine Ratio, Urine - Urine, Clean Catch (08/19/2024 3:02 PM EDT) Protein/Creati nine Ratio, Urine 126.1 0.0 - 200.0 mg/G Crea 08/20/2024 12:47 AM EDT [facility] Creatinine, Urine 148.3 mg/dL 08/20/2024 12:47 AM EDT [facility] Total Protein, Urine 18.7 mg/dL 08/20/2024 12:47 AM EDT [facility] Urine Urine specimen obtained by clean catch procedure / Unknown Collection / Unknown 08/19/2024 3:02 PM EDT 08/19/2024 4:26 PM EDT Kt Fan DO URINE ORDERABLES Final Resu lt [facility]
[address] [place] [address], [place] [phone] * (ABNORMAL) Magnesium (08/19/2024 3:02 PM EDT) Magnesium 1.5(L) 1.6 - 2.6 mg/dL 08/19/2024 5:12 PM EDT [facility] Blood Line / Unknown 08/19/2024 3: 02 PM EDT 08/19/2024 3:10 PM EDT us Kt Fan DO LAB BLOOD ORDERABLES Final Result Performing Organization Address City/State/[facility] Co de Phone Number [facility]
[address] [place] [address], [place] [phone] * Urinalysis, Microscopic Only - Urine, Clean Catch (08/19/2024 3:02 PM EDT) RBC, UA 0-2 None Seen, 0-2 /HPF 08/19/2024 3:33 PM EDT [facility] WBC, UA 0-2 None Seen, 0-2 /HPF 08/19/2024 3:33 PM EDT [facility] Bacteria, UA None Seen None Seen /HPF 08/19/2024 3:33 PM EDT [facility] Squamous Epithelial Cells, UA 0-2 None Seen, 0-2 /HPF 08/19/2024 3:33 PM EDT [facility] Hyaline Casts, UA None Seen None Seen /LPF 08/19/2024 3:33 PM EDT [facility] Methodology Automated Microscopy 08/19/2024 3:33 PM EDT [facility] Urine Urine specimen obtained by clean catch procedure / Unknown Collection / Unknown 08/19/2024 3:02 PM EDT 08/19/2024 3:13 PM EDT us Kt Fan DO URINE ORDERABLES Final Resu lt [facility]
[address] [place] [address], * (ABNORMAL) CBC Auto Differential (08/19/2024 3:02 PM EDT) WBC 9.19 3.40 - 10.80 10*3/mm3 08/19/2024 3:23 PM EDT [facility] RBC 3.58(L) 3.77 - 5.28 10*6/mm3 08/19/2024 3:23 PM EDT [facility] Hemoglobin 10.5(L) 12.0 - 15.9 g/dL 08/19/2024 3:23 PM EDT [facility] Hematocrit 31.4(L) 34.0 - 46.6 % 08/19/2024 3:23 PM EDT [facility] MCV 87.7 79.0 - 97.0 fL 08/19/2024 3:23 PM EDT [facility] MCH 29.3 26.6 - 33.0 pg 08/19/2024 3:23 PM EDT [facility] MCHC 33.4 31.5 - 35.7 g/dL 08/19/2024 3:23 PM EDT [facility] RDW 13.4 12.3 - 15.4 % 08/19/2024 3:23 PM EDT [facility] RDW-SD 42.4 37.0 - 54.0 fl 08/19/2024 3:23 PM EDT [facility] MPV 12.0 6.0 - 12.0 fL 08/19/2024 3:23 PM EDT [facility] Platelets 241 140 - 450 10*3/mm3 08/19/2024 3:23 PM EDT [facility] Neutrophil % 66.8 42.7 - 76.0 % 08/19/2024 3:23 PM EDT [facility] Lymphocyte % 24.4 19.6 - 45.3 % 08/19/2024 3:23 PM EDT [facility] Monocyte % 7.6 5.0 - 12.0 % 08/19/2024 3:23 PM EDT [facility] Eosinophil % 0.7 0.3 - 6.2 % 08/19/2024 3:23 PM EDT [facility] Basophil % 0.2 0.0 - 1.5 % 08/19/2024 3:23 PM EDT [facility] Immature Grans % 0.3 0.0 - 0.5 % 08/19/2024 3:23 PM EDT [facility] Neutrophils, Absolute 6.14 1.70 - 7.00 10*3/mm3 08/19/2024 3:23 PM EDT [facility] Lymphocytes, Absolute 2.24 0.70 - 3.10 10*3/mm3 08/19/2024 3:23 PM EDT [facility] Monocytes, Absolute 0.70 0.10 - 0.90 10*3/mm3 08/19/2024 3:23 PM EDT [facility] Eosinophils, Absolute 0.06 0.00 - 0.40 10*3/mm3 08/19/2024 3:23 PM EDT [facility] Basophils, Absolute 0.02 0.00 - 0.20 10*3/mm3 08/19/2024 3:23 PM EDT [facility] Immature Grans, Absolute 0.03 0.00 - 0.05 10*3/mm3 08/19/2024 3:23 PM EDT [facility] nRBC 0.0 0.0 - 0.2 /100 WBC 08/19/2024 3:23 PM EDT [facility] Blood Line / Unknown 08/19/2024 3: 02 PM EDT 08/19/2024 3:10 PM EDT Kt Fan DO LAB BLOOD ORDERABLES Final Result [facility]
[address] [place] [address], [place] [phone] * (ABNORMAL) Urinalysis With Microscopic If Indicated (No Culture) - Urine, Clean Catch (08/19/2024 3:02 PM EDT) Color, UA Yellow Yellow, Straw 08/19/2024 3:33 PM EDT [facility] Appearance, UA Clear Clear 08/19/2024 3:33 PM EDT [facility] pH, UA >=9.0(H) 5.0 - 8.0 08/19/2024 3:33 PM EDT [facility] Specific [place], UA 1.018 1.005 - 1.030 08/19/2024 3:33 PM EDT [facility] Glucose, UA Negative Negative 08/19/2024 3:33 PM EDT [facility] Ketones, UA 15 mg/dL (1+)(A) Negative 08/19/2024 3:33 PM EDT [facility] Bilirubin, UA Negative Negative 08/19/2024 3:33 PM EDT [facility] Blood, UA Negative Negative 08/19/2024 3:33 PM EDT [facility] Protein, UA 30 mg/dL (1+)(A) Negative 08/19/2024 3:33 PM EDT [facility] Leuk Esterase, UA Negative Negative 08/19/2024 3:33 PM EDT [facility] Nitrite, UA Negative Negative 08/19/2024 3:33 PM EDT [facility] Urobilinogen, UA 1.0 E.U./dL 0.2 - 1.0 E.U./dL 08/19/2024 3:33 PM EDT [facility] Urine Urine specimen obtained by clean catch procedure / Unknown Collection / Unknown 08/19/2024 3:02 PM EDT 08/19/2024 3:13 PM EDT Kt Fan DO URINE ORDERABLES Final Resu lt [facility]
[address] [place] [address], * Amylase (08/19/2024 3:02 PM EDT) Pathologist [facility] Amylase 73 28 - 100 U/L 08/19/2024 3:36 PM EDT [facility] Blood Line / Unknown 08/19/2024 3: 02 PM EDT 08/19/2024 3:10 PM EDT Kt Fan LAB BLOOD ORDERABLES Final Result [facility]
[address] [place] [address], * Lipase (08/19/2024 3:02 PM EDT) [facility] Lipase 13 13 - 60 U/L 08/19/2024 3:36 PM EDT [facility] Blood Line / Unknown 08/19/2024 3: 02 PM EDT 08/19/2024 3:10 PM EDT Kt Fan LAB BLOOD ORDERABLES Final Result [facility]
[address] [place] [address], [place] [phone] * (ABNORMAL) Comprehensive Metabolic Panel (08/19/2024 3:02 PM EDT) [facility] Glucose 75 65 - 99 mg/dL 08/19/2024 3:38 PM EDT [facility] BUN 3.6(L) 6.0 - 20.0 mg/dL 08/19/2024 3:38 PM EDT [facility] Creatinine 0.51(L) 0.57 - 1.00 mg/dL 08/19/2024 3:38 PM EDT [facility] Sodium 137 136 - 145 mmol/L 08/19/2024 3:38 PM EDT [facility] Potassium 2.6(LL) 3.5 - 5.2 mmol/L 08/19/2024 3:38 PM [facility] Comment:Specimen hemolyzed. Result may be falsely elevated. Chloride 99 98 - 107 mmol/L 08/19/2024 3:38 PM T [facility] CO2 24.2 22.0 - 29.0 mmol/L 08/19/2024 3:38 PM EDT [facility] Calcium 8.8 8.6 - 10.5 mg/dL 08/19/2024 3:38 PM T [facility] Total Protein 6.6 6.0 - 8.5 g/dL 08/19/2024 3:38 PM [facility] Albumin 3.4(L) 3.5 - 5.2 g/dL 08/19/2024 3:38 PM [facility] ALT (SGPT) 10 1 - 33 U/L 08/19/2024 3:38 PM [facility] AST (SGOT) 22 1 - 32 U/L 08/19/2024 3:38 PM T [facility] Alkaline Phosphatase 64 39 - 117 U/L 08/19/2024 3:38 PM [facility] Total Bilirubin 0.5 0.0 - 1.2 mg/dL 08/19/2024 3:38 PM T [facility] Globulin 3.2 gm/dL 08/19/2024 3:38 PM T [facility] Comment:Calculated Result A/G Ratio 1.1 g/dL 08/19/2024 3:38 PM T [facility] BUN/Creatinine Ratio 7.1 7.0 - 25.0 08/19/2024 3:38 PM [facility] Anion Gap 13.8 5.0 - 15.0 mmol/L 08/19/2024 3:38 PM [facility] eGFR 126.6 >60.0 mL/min/1.7 3 08/19/2024 3:38 PM EDT [facility] Blood Line / Unknown 08/19/2024 3: 02 PM EDT 08/19/2024 3:10 PM EDT Narrative [facility] - 08/19/2024 3:38 PM EDT GFR [...] not include race as a factor us Kt Fan DO LAB BLOOD ORDERABLES Final Result Performing Organization Address City/[facility] Co de Phone Number [facility]
[address] [place] [address], [place] [phone] * Type & Screen (08/19/2024 3:02 PM EDT) ABO Type O 08/19/2024 3:51 PM EDT [facility] RH type Positive 08/19/2024 3:51 PM EDT [facility] Antibody Screen Negative 08/19/2024 3:51 PM EDT [facility] T&S Expiration Date 08/22/2024 11:59:59 PM 08/19/2024 3:51 PM EDT [facility] Blood Line / Unknown 08/19/2024 3: 02 PM EDT 08/19/2024 3:15 PM EDT us Kt Fan DO BLOOD BANK TEST ORDERABLES Edited Result - Final Performing Organization Address City/[facility]/ZIP Co de Phone Number [facility]
[address] [place] [address], [place] [phone] documented in this encounter Visit Diagnoses Diagnosis [...] Mon08/19/24 at 1830, For 1 day New 08/20/2024 10:43 AM EDT 125 mL/hr 125 mL/hr New 08/20/2024 4:38 AM EDT 125 mL/hr 125 mL/hr New 08/19/2024 9:51 PM EDT 125 mL/hr 125 [...] First dose on Mon08/19/24 at 1800 New 08/20/2024 8:38 AM EDT 500 mL/hr New [...] BPA Driven Protocol Open Order & Select [facility] Electrolyte Replacement Protocol Algorithm to View Details [...] dose 1502 (New Bag - Provider: Nneka Cross, BRIT)1510 (Stopped - Provider: Nneka Cross, RN)1555 (Restarted [...] 20 mEq/hr on ECG monitored patients ONLY 1824 (New Bag - Provider: Pilar Verduzco RN - Comment: waiting on med from pharmacy)2018 (New Bag - Provider: Yun Nicole RN)2151 (New Bag - Provider: Yun Nicole RN - Comment: Slowed down infusion)2235 (New Bag - Provider: Yun Nicole RN)2333 [...] Verduzco RN)1148 (New Bag - Provider: Pilar Verduzco [...] infusing) 0956 (Not Given - Provider: Pilar Verduzco, BRIT - Reason: Given from running infusion) sucralfate [...] on Mon08/19/24 at 1830, For 1 day 215 (New Bag - Provider: Yun Nicole RN) 0438 (New Bag - Provider: Yun Nicole RN)0838 (Stopped - Provider: Pilar Verduzco, RN)1043 (New Bag - Provider: Pilar Verduzco RN)1828 (Due: Order Ending - Provider: Automatic [...] to swallow. 1903 (Given - Provider: Pilar Verduzco RN) 0608 (Given - Provider: Yun Nicole RN) Potassium Replacement - Follow Nurse / BPA [...] documented as of this encounter Care Teams Shoder Filler Relationship Specialty Start Date End Date Norma Friedman APRN [address] [place] [place] [address] PCP - General Family Medicine 05/14/24 documented as of this encounter
--- OUTSIDE RECORDS SUMMARY | 2024-08-20 13:44 | XMS_ITS | Encounter Summary ---
[facility] [address] [place] [phone] Care Team Providers Care Expedition Supervisor Name Role Phone IvyKade goldbergdev FERNÁNDEZ Primary Care Provider + [phone] Reason for Visit * Auth/Cert (Routine) Specialty Diagnoses / Procedures Referred By Contac t Referred To Contact Referral ID Status Reason Start Date Expiration Date Visits Re quested Visits Authorized 1 1 Encounter Details Date Type Department Care Team (Late st Contact Info) Description 08/20/2024 1:44 PM EDT Anesthesia Event [facility] ENDO SUITES [address] [place] [phone] Akash Anguiano MD [address] [place] [address] Liborio Peralta CRNA [address] [place] [address] Anesthesia Record Procedure Summary Procedure Name Responsible [...] and heating? Not hard at all 05/28/2024 [facility] [place] of Occupat ional Health - Occupational Stress [...] 1:23 PM EDT Polly Lacey RN * [place] Suicide Severity Rating Scale (Screener/Recent Self-Report) Question Answer Date of Assessment Author 6. Suicidal Behavior (Lifetime) No 1:23 PM EDT Polly Cabrera RN documented as of this encounter OR Notes * Anesthesia Postprocedure Evaluation - Liborio Peralta CRNA - 08/20/2024 2:18 PM EDT Patient: Whitney Presley Procedure Summary Date: 08/20/24 Room / Location: [facility] ENDOSCOPY 3 / [facility] Anesthesia [...] sounds: normal. 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 Plan discussed with BOILER ROOM OPERATOR. CODE STATUS: documented in this encounter Plan of Treatment Upcoming Encounters Date Type Department Care Team (Late st Contact Info) Description 01/20/2025 3:30 PM EST Office Visit [facility]OLOGY [address] [facility] [address] Robbin Escalante MD [address] [address] documented as of this encounter Procedures Procedure [...] and Staff Patient location during procedure: OR BOILER ROOM OPERATOR/CAA: Junior Zbigniew Jain, DAYNE Indications and [...] documented as of this encounter Care Teams Expedition Supervisor Relationship Specialty Start Date End Date Norma Friedman APRN [address] [place] [place]FA[place]IA[place] [address] PCP - General Family Medicine 05/14/24 documented as of this encounter
--- OUTSIDE RECORDS SUMMARY | 2024-08-29 10:00 | XMS_ITS | Encounter Summary ---
[facility] Organization [facility] Address [address] [place] [address] Care Team Providers Care Precipitator Operator Name Role Phone IvyKade goldbergjoseseven JOLENE Primary Care Provider + [phone] Reason for Visit * Reason Comments Problem Encounter Details Date Type Department Care Team (Late st Contact Info) Description 08/29/2024 10:00 AM EDT Routine [facility] OBGYN [address] [place] [address] Staci Jain MD [address] [place] [address] GA: 26w4d Social History Tobacco Use Types Packs/Day Years Used Date Smoking Tobacco: Never Smokeless Tobacco: Never Alcohol Use Standard Drinks/Week Comments Never 0 (1 standard drink = 0.6 oz pur e alcohol) [facility] Utilities Answer Date Recorded In the past 12 months has [employer] gas, oil, or water [employer] threatened to shut off services in your [...] all 05/28/2024 [facility] [place] [facility] - Occupational Stress Questionnaire Answer [...] none 08/20/2024 Family and Community Support Answer Rtavis e [...] Office Visit [facility] GASTROENTEROLOGY [address] [address] Robbin Escalante MD [address] [address] Scheduled Orders Name Type Priority Associated Diagnoses [...] - 08/30/2024 6:09 AM EDT Performed at: [address] [place] [id number] Liver Trimmer: Kevin Harman MD, Phone: [phone] Patient Fasting: N us Staci Jain MD LAB BLOOD ORDERABLES Final Result [facility] ([facility]ORY) [address] [place] [address], [place] [phone] [facility] [address] [place] [address], [place] [phone] * (ABNORMAL) Comprehensive Metabolic Panel (08/29/2024 11:05 AM EDT) Pathologist [facility] Glucose 72 65 - 99 mg/dL [facility] [...] - 08/30/2024 6:09 AM EDT Performed at: [address] [place] [id number] Liver Trimmer: Kevin Harman MD, Phone: [phone] Patient Fasting: N us Staci Jain MD LAB BLOOD ORDERABLES Final Result Performing Organization Address City/[facility]/ZIP Co de Phone Number [facility] ([facility]ORY) [address] [place] [address], [place] [phone] [facility] [address] [place] [address], [place] [phone] * (ABNORMAL) POC Urinalysis Dipstick (08/29/2024 10:13 AM EDT) [facility] Glucose, UA Negative Negative mg/dL [facility] Protein, POC Trace(A) Negative mg/dL [facility] Urine 08/29/2024 10:1 3 AM EDT us Staci Jain MD POINT OF CARE TEST OR DERABLES Final Result [facility]
[address] [place] [address], documented in this encounter Visit Diagnoses Diagnosis [...] documented as of this encounter Care Teams Precipitator Operator Relationship Specialty Start Date End Date Norma Friedman APRN [address] [place] G3 RAFAELA APPIAH [address] PCP - General Family Medicine 05/14/24 documented as of this encounter
[2024-09-09 08:49] VITALS: BMI 26.6
--- OUTSIDE RECORDS SUMMARY | 2024-09-09 08:53 | XMS_ITS | Clinical Summary ---
Author Organization Healthcare Address [address] [place] [address] Care Team Providers Care Semiconductor Development Technician Name Role Phone Unavailable Primary Care Provider Unavailabl e Encounters Date Type Department Care Team Description 07/22/2024 [facility] [address] [place] [address] Staci Jain MD History of proteinuria syndrome (Primary Dx); care, subsequent , second trimester 07/22/2024 [facility] [address] [place] [address] Sandy Cardenas MD from Last 3 Months [...] 2012 [facility]-Cervical Cancer Screening 2021 [facility]-HPV/Cotest 2021 [id number] Vaccine (2 season) 2023 05/04/2022 [facility]-Influenza Vaccine (#1) 2024 03/30/2016, [facility]-DTaP,Tdap,and Td Vaccines (7 - Td or Tdap) 06/01/2032 06/01/2022, 10/03/2020, 01/15/2018, Additional history exists [facility]-Zoster Vaccines (1 of 2) 2041 HPV Vaccines Completed 03/29/2017, 07/08, 06/23/2016 [facility]-Hepatitis A Vaccines Aged Out 01/15/2018 No longer eligible based on patient's age to complete this topic [facility]-HIB Vaccines Aged Out No longer e [...] patient's age to complete this topic Insurance [employer] MEDICAID
--- OUTSIDE RECORDS SUMMARY | 2024-09-09 08:53 | XMS_ITS | Clinical Summary ---
Author Organization [facility] [place] [address] Phone Care Team Providers Care Bellows Filler Name Role Phone Unavailable Primary Care Provider [...] migh t be different from the original. [facility] - Edwardo Ojeda MD Interventional Pain Protocol: NS Appt 03/29/22 Letter Sent Maxime report completed (EVERY 3 MONTHS) ( 03/23/22) Pharmacy: [facility] [address] [place] [id number] [address] [facility] south - [phone] No known active problems Social History Tobacco [...] patient's age to complete this topic Insurance [employer] [facility] [id number]
--- OUTSIDE RECORDS SUMMARY | 2024-09-09 08:53 | XMS_ITS | Encounter Summary ---
Author Organization Healthcare Address [address] [place] [id number] Care Team Providers Care Food Operations Manager Name Role Phone Unavailable Primary Care Provider Unavailabl e Reason for Referral * Consultation (Routine) - Authorized Specialty Diagnoses / Procedures Referred By Contac t Referred To Contact Nephrology Diagnoses History of proteinuria syndrome care, subsequent , second trimester Staci Jain MD [address] [address] Phone: tel: fax: [facility] Nephrology, Bone & Mineral Metabolism [address] [facility], [address] [place] [address] Phone: tel: fax: Referral ID Status Reason Start Date Expiration Date Visits Requested Visits Authorized [id number] Authorized Specialty Services Required 07/22/2024 01/21/2026 1 1 Encounter Details Date Type Department Care Team (Late st Contact Info) Description 07/22/2024 [facility] [address] [place] [address] Staci Jain MD 1700 [place] [address] History of proteinuria syndrome (Primary Dx); care, [...]
--- OUTSIDE RECORDS SUMMARY | 2024-09-09 08:54 | XMS_ITS | Clinical Summary ---
Author Organization [facility] Address [address] [place] [address] Care Team Providers Care Enamel Applier Name Role Phone Norma Friedman APRN Primary Care Provider + [phone] Allergies Active Allergy Reactions Criticality Noted Date [...] Department Care Team Description 5 Results Follow-Up [facility] OBGYN [address] [place] [address] Rob Wharton MD 5 Telephone [facility] [address] [facility] [address] [place] [address] Rob Wharton MD 5 10:00 AM EDT Routine [facility] OBGYN [address] [place] [address] Rob Wharton MD GA: 26w4d 5 Travel 5 Telephone [facility]YN [address] [facility] [address] [place] [address] Rob Wharton MD 5 Telephone [facility] OBGYN [address] [place] [address] Rob Wharton MD 5 1:44 PM EDT Anesthesia Event [facility] ENDO SUITES [address] [place] [address] Akash Anguiano MD Lanham, John, CRNA 5 1:33 PM EDT - 5 2:05 PM EDT Surgery [facility] ENDO SUITES [address] [place] [address] Blu Alvarado MD ESOPHAGOGASTRODUODENOSCOPY [61570 (CPT )] 5 1:59 PM EDT - 5 4:28 PM EDT Hospital Encounter [facility] ANTEPARTUM [address] [place] [address] Rob Wharton MD Brunner, Mark I, MD Dysphagia, unspecified type (Primary Dx) Discharge Disposition: Home or Self Care 5 10:15 AM EDT Routine [facility] OBGYN [address] [place] [address] Jacey Mathews, NETWORK SYSTEMS ANALYST GA: 25w1d 5 Telephone [facility] OBGYN [address] [place] [address] Jacey Mathews, NETWORK SYSTEMS ANALYST 5 Travel 5 Patient Outreach [facility] LABOR DELIVERY [address] [place] [address] Christy Zabala RN 5 9:10 AM EDT Routine [facility] OBGYN [address] [facility] [address] [place] [address] Rob Wharton MD GA: 21w1d 5 8:00 AM EDT Office Visit [facility] MATERNAL MEDICINE [address] [facility] [address] [place] [address] Sebastian Larsen MD History of prior with small for gestational age (Primary Dx) 5 7:44 AM EDT - 5 11:59 PM EDT Hospital Encounter [facility] US PER DIAG CTR [address] [place] [address] Kelly Delgado, NETWORK SYSTEMS ANALYST care, antepartum, unspecified ; High risk due to history of labor, antepartum; History of prior with small for gestational age Discharge Disposition: Home or Self Care 5 Travel 5 Results Follow-Up [facility] OBGYN [address] [facility] [address] [place] [address] Kelly Delgado, JOLENE 5 10:10 AM EDT Routine [facility] OBGYN [address] [facility] [address] [place] [address] Kelly Delgado, NETWORK SYSTEMS ANALYST GA: 18w5d 5 9:30 AM EDT Ancillary Procedure [facility] OBGYN [address] [facility] [address] [place] [phone] care in second trimester, unspecified 5 Travel 5 Telephone [facility] OBGYN [address] [facility] [address] [place] [address] Uriel Russ MD TRANSFER OF CARE REQ 5 10:15 PM EDT - 5 11:59 PM EDT Hospital Encounter [facility] LABOR DELIVERY [address] [place] [phone] Rob Wharton MD Mirsky, Elizabeth, MD Discharge Disposition: Home or Self Care 5 Travel 5 Telephone [facility] OBGYN [address] [facility] [address] [place] [address] Uriel Russ MD [facility], OB 5 Telephone [facility] OBGYN [address] [place] [address] Uriel Russ MD [facility] 5 E-Visit [facility] [address] [place] [address] E-VisitToni MD 5 Results Follow-Up [facility] OBGYN [address] [place] [address] Uriel Russ MD 5 3:20 PM EDT Routine [facility] OBGYN [address] [place] [address] Uriel Russ MD GA: 17w2d 5 3:00 PM EDT Ancillary Procedure [facility] OBGYN [address] [place] [address] Bleeding in early (Primary Dx) 5 Travel 5 Telephone [facility] OBGYN [address] [place] [address] Uriel Russ MD 5 9:40 AM EDT Routine [facility] OBGYN [address] [place] [address] Uriel Russ MD GA: 15w2d 5 Travel [...] drink = 0.6 oz pur e alcohol) [facility] Utilities Answer Date Recorded In the past 12 months has [employer], gas, oil, or water [employer] threatened to shut off services in your [...] at all 05/28/2024 [employer] of Occupat ional Health - Occupational Stress [...] GED or equivalent No 05/28/2024 Preferred Language Guyanese 05/28/2024 PHQ-2 Answer Date Recorded Patient Health [...] Description 01/20/2025 3:30 PM EST Office Visit [facility] GASTROENTEROLOGY [address] [address] Robbin Escalante MD [address] [address] Health Maintenance Due Date Last Done Comments [...] NONSTRESS TEST Routine 08/19/2024 4:17 PM EDT [facility] DIAGNOSTIC CENTER Routine 08/19/2024 [...] 10:02 AM EDT Multigravida in second trimester [facility] DIAGNOSTIC [facility] Routine 07/22/2024 9:10 AM [...] - 08/30/2024 6:09 AM EDT Performed at: [address] [place] [address] [id number] Truck Hopper: Kevin Harman MD, Phone: [phone] Patient Fasting: N us Rob Wharton MD LAB BLOOD ORDERABLES Final Result [facility] (AMBULATORY) [address] [place] [address], [facility] [address] [place] [address], * (ABNORMAL) Comprehensive Metabolic Panel (08/29/2024 11:05 AM EDT) Only the most recent of4 resultswithin the time period is included. [facility] Glucose 72 65 - 99 mg/dL [facility] [...] 11:0 5 AM EDT 08/29/2024 Narrative [facility] (AMBULATORY) - 08/30/2024 6:09 AM EDT Performed at: [address] [place] [address] [id number] Truck Hopper: Kevin Harman MD, Phone: [phone] Patient Fasting: N us Rob Wharton MD LAB BLOOD ORDERABLES Final Result [facility] (AMBULATORY) [address] [place] [address], [facility] [address] [place] [address], [place] [phone] * (ABNORMAL) POC Urinalysis Dipstick (08/29/2024 10:13 AM EDT) Only the most recent of5 resultswithin the time period is included. Glucose, UA Negative Negative mg/dL [facility] LABORATORY Protein, POC Trace(A) Negative mg/dL [facility] LAB[facility] Urine 08/29/2024 10:1 3 AM EDT us Rob Wharton MD POINT OF CARE TEST OR DERABLES Final Result [facility] LABORATORY
[address] [place] [address], * BH AN ETT AIRWAY (08/20/2024 2:02 PM EDT) Narrative Liborio Peralta CRNA - 08/20/2024 2:02 PM EDT Liborio PeraltaDAYNE 08/20/2024 2:03 PM Airway Reason: elective Date/Time: 08/20/2024 2:02 PM Airway not difficult General Information and Staff Patient location during procedure: OR CANDLE EXTRUSION MACHINE OPERATOR/CAA: Junior Zbigniew Wharton, CANDLE EXTRUSION MACHINE OPERATOR Indications and Patient Condition Indications for airway [...] with symmetric chest rise and fall Liborio Elkton DAYNE ANESTHESIA ORDERABLES Final Res ult * Tissue Pathology Exam (08/20/2024 1:55 PM EDT) Case Report Surgical Pathology Report Case: [id number] Authorizing Provider: Blu Alvarado MD Collected: 08/20/2024 01:55 PM Ordering Location: [facility] Received: 08/20/2024 02:14 PM ENDO SUITES Pathologist: Khalida Rhoades DO Specimen: Gastric, Antrum, antrum bx for path 08/22/2024 9:18 AM EDT [facility] Clinical Information Dysphagia, unspecified type 08/22/2024 9:18 AM EDT [facility] Final Diagnosis Stomach, antrum, biopsy: 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 pylori is negative (no organisms are identified) Negative for intestinal metaplasia, dysplasia, or malignancy 08/22/2024 9:18 AM EDT [facility] at 0918 EDT Gross Description 1. Gastric, Antrum. Received in formalin labeled antrum biopsy is a 0.4 x 0.2 x 0.2 cm pink-see soft tissue fragment submitted entirely in a single cassette. HDM 08/22/2024 9:18 AM EDT [facility] Microscopic Description The slides are reviewed and demonstrate histopathologic features supporting the above rendered diagnosis. 08/22/2024 9:18 AM EDT [facility] Tissue Pyloric antrum structure / Unknown 08/20/2024 1:55 PM EDT 08/20/2024 2:14 PM EDT Blu Alvarado MD PATHOLOGY/CYTOLOGY ORDERABLES Final Result [facility]
[address] [place] [address], * Upper GI Endoscopy (08/20/2024 1:09 PM EDT) us Blu Alvarado MD INTERFACE NEEDS Final Result * (ABNORMAL) Basic Metabolic Panel (08/20/2024 5:25 AM EDT) Glucose 84 65 - 99 mg/dL 08/20/2024 6:13 AM EDT [facility] BUN 2.3(L) 6.0 - 20.0 mg/dL 08/20/2024 6:13 AM EDT [facility] Creatinine 0.51(L) 0.57 - 1.00 mg/dL 08/20/2024 6:13 AM EDT [facility] Sodium 139 136 - 145 mmol/L 08/20/2024 6:13 AM EDT [facility] Potassium 3.5 3.5 - 5.2 mmol/L 08/20/2024 6:13 AM EDT [facility] Chloride 109(H) 98 - 107 mmol/L 08/20/2024 6:13 AM EDT [facility] CO2 23.5 22.0 - 29.0 mmol/L 08/20/2024 6:13 AM EDT [facility] Calcium 7.8(L) 8.6 - 10.5 mg/dL 08/20/2024 6:13 AM EDT [facility] BUN/Creatinine Ratio 4.5(L) 7.0 - 25.0 08/20/2024 6:13 AM EDT [facility] Anion Gap 6.5 5.0 - 15.0 mmol/L 08/20/2024 6:13 AM EDT [facility] eGFR 126.6 >60.0 mL/min/1.7 3 08/20/2024 6:13 AM EDT [facility] Blood Venipuncture / Unknown [...] MD LAB BLOOD ORDERABLES Final Resu lt [facility]
[address] [place] [address], [place] [phone] * (ABNORMAL) Potassium (08/19/2024 8:53 PM EDT) Potassium 2.7(L) 3.5 - 5.2 mmol/L 08/19/2024 9:20 PM EDT [facility] Blood Venipuncture / Unknown 08/19/2024 8:53 PM EDT 08/19/2024 9:04 PM EDT Kt Fan DO LAB BLOOD ORDERABLES Final Result Performing Organization Address City/[facility]/ZIP Co de Phone Number [facility] LABOR[facility]ORY
[address] [place] [address], * ABO RH Specimen Verification (08/19/2024 4:34 PM EDT) ABO Type O 08/19/2024 7:39 PM EDT [facility] BB LABORATORY RH type Positive 08/19/2024 7:39 PM EDT [facility] Blood Venipuncture / Unknown 08/19/2024 4:34 PM EDT 08/19/2024 4:53 PM EDT Rob Wharton MD BLOOD BANK TEST ORDER FRANCO Final Result Performing Organization Address City/[facility] Co de Phone Number [facility] BB LABORATORY
[address] [place] [address], * [facility] (08/19/2024 3:25 PM EDT) Only the most recent of2 resultswithin the time period is included. Anatomical Region Laterality Modality Ultrasound 08/19/2024 3:09 PM EDT Narrative 08/19/2024 4:54 PM EDT PAT NAME: CAROLE GIRARD MED REC#: [id number] DA: 1990 PAT GEND: F PAT TYPE: E EXAM TRAVIS: [id number] REF PHYS ROB WHARTON Comparison Studies The [...] EFW (oz) 9 oz EFW by: Hadlock ([id number]) Extended Cav. septi pel. tr 4.7 mm Brick Stacker 3.8 mm CM 7.5 mm 84% Nicolaides [...] Heart / Thorax 3-vessel view: Appears normal 5-bffunv-hrjhzgw view: Appears normal Stomach: Appears normal Kidneys: [...] in 4wks for growth. Coding ======= Description: 75424-30 Follow Up Catering Service Manager: Alison Verduzco RT R , [facility] Physician: Jo Chappell MD Electronically signed by: Jo Chappell MD at: 16:54 Procedure Note Jo Chappell MD - 08/19/2024 PAT NAME: CAROLE GIRARD MED REC#: [id number] DA: [id number] PAT GEND: F PAT TYPE: E EXAM TRAVIS: [id number] REF PHYS ROB WHARTON Comparison Studies The findings of this study are compared to the prior ultrasound studydated 07/22/24 Patient Status Inpatient Indication ======== History of c/s x1. History of . Vaginal bleeding. Maternal Assessment Bghfvd118 cm Height (ft)5 ft Height (in)4 in Swjboq71 kg Weight (lb)158 lb BMI27.31 kg/m Method ======= Transabdominal ultrasound examination. View: Limited by patient bodyhabitus ========= Love . Number of fetuses: 1 Dating ====== Method of dating:based on stated DUSTY GA by prior [id number] w + 1 d DUSTY by prior assessment:12/01/2024 Ultrasound examination on:08/19/2024 GA by U/S based upon:AC, BPD, Femur, HC GA by U/S24 w + 2 d DUSTY by U/S:12/07/2024 Previous dating:based on stated DUSTY, selected on 07/22/2024 Agreed DUSTY of previous datin12/01/2024 Assigned:based on stated DUSTY, selected on 08/19/2024 Assigned GA25 w + 1 d Assigned DUSTY:12/01/2024 [id number] d Biometry Standard BPD57.6 mm 23w 4d 5% Hadlock OFD81.6 mm 26w 4d 88% Jamal HC225.7 mm 24w 4d 13% Hadlock Cerebellum tr28.9 mm 25w 2d 62% Hill AC194.9 mm 24w 1d 15% Hadlock Femur44.9 mm 24w 6d 27% Hadlock Nngmxie58.3 mm 25w 3d 50% Jamal HC / AC1.16 NPU338 g 24w 2d 16% Hadlock EFW (lb)1 lb EFW (oz)9 oz EFW by:Hadlock ([id number]) Extended Cav. septi pel. tr4.7 mm Vp3.8 mm CM7.5 mm 84% Nicolaides Head / Face / Neck Cephalic index0.71 <1% Nicolaides Extremities / Bony Struc FL / BPD0.78 FL / HC0.20 FL / AC0.23 Other Structures [id number] bpm General Evaluation Cardiac activity present. FHR [...] normal Heart / Thorax 3-vessel view:Appears normal 7-rsyxow-jgegmlz view:Appears normal Stomach:Appears normal Kidneys:Appears normal Bladder:Appears [...] office in 4wks for growth. Coding ======= Description:43488-46 Follow Up Catering Service Manager: RT Annetta Hartmann , [facility] Physician: Jo Chappell MD Electronically signed by: Jo Chappell MD at: 16:54 us Kt Fan DO [facility] US ORDERABLES Final Res ult * Urinalysis, Microscopic Only - Urine, Clean Catch (08/19/2024 3:02 PM EDT) Only the most recent of2 resultswithin the time period is included. RBC, UA 0-2 None Seen, 0-2 /HPF 08/19/2024 3:33 PM EDT [facility] WBC, UA 0-2 None Seen, 0-2 /HPF 08/19/2024 3:33 PM EDT [facility] Bacteria, UA None Seen None Seen /HPF 08/19/2024 3:33 PM EDT [facility] Squamous Epithelial Cells, UA 0-2 None Seen, 0-2 /HPF 08/19/2024 3:33 PM EDT [facility] Hyaline Casts, UA None Seen None Seen /LPF 08/19/2024 3:33 PM EDT [facility] Methodology Automated Microscopy 08/19/2024 3:33 PM EDT [facility] Urine Urine specimen obtained by clean catch procedure / Unknown Collection / Unknown 08/19/2024 3:02 PM EDT 08/19/2024 3:13 PM EDT Kt Fan DO URINE ORDERABLES Final Resu lt [facility]
[address] [place] [address], * (ABNORMAL) Urinalysis With Microscopic If Indicated (No Culture) - Urine, Clean Catch (08/19/2024 3:02 PM EDT) Only the most recent of2 resultswithin the time period is included. Color, UA Yellow Yellow, Straw 08/19/2024 3:33 PM EDT [facility] Appearance, UA Clear Clear 08/19/2024 3:33 PM EDT [facility] pH, UA >=9.0(H) 5.0 - 8.0 08/19/2024 3:33 PM EDT [facility] Specific [place], UA 1.018 1.005 - 1.030 08/19/2024 3:33 PM EDT [facility] Glucose, UA Negative Negative 08/19/2024 3:33 PM EDT [facility] Ketones, UA 15 mg/dL (1+)(A) Negative 08/19/2024 3:33 PM EDT [facility] Bilirubin, UA Negative Negative 08/19/2024 3:33 PM EDT [facility] Blood, UA Negative Negative 08/19/2024 3:33 PM EDT [facility] Protein, UA 30 mg/dL (1+)(A) Negative 08/19/2024 3:33 PM EDT [facility] Leuk Esterase, UA Negative Negative 08/19/2024 3:33 PM EDT [facility] Nitrite, UA Negative Negative 08/19/2024 3:33 PM EDT [facility] Urobilinogen, UA 1.0 E.U./dL 0.2 - 1.0 E.U./dL 08/19/2024 3:33 PM EDT [facility] Urine Urine specimen obtained by clean catch procedure / Unknown Collection / Unknown 08/19/2024 3:02 PM EDT 08/19/2024 3:13 PM EDT Kt Fan DO URINE ORDERABLES Final Resu lt [facility]
[address] [place] [address], * (ABNORMAL) CBC Auto Differential (08/19/2024 3:02 PM EDT) WBC 9.19 3.40 - 10.80 10*3/mm3 08/19/2024 3:23 PM EDT [facility] RBC 3.58(L) 3.77 - 5.28 10*6/mm3 08/19/2024 3:23 PM EDT [facility] Hemoglobin 10.5(L) 12.0 - 15.9 g/dL 08/19/2024 3:23 PM EDT [facility] Hematocrit 31.4(L) 34.0 - 46.6 % 08/19/2024 3:23 PM EDT [facility] MCV 87.7 79.0 - 97.0 fL 08/19/2024 3:23 PM EDT [facility] MCH 29.3 26.6 - 33.0 pg 08/19/2024 3:23 PM EDT [facility] MCHC 33.4 31.5 - 35.7 g/dL 08/19/2024 3:23 PM EDT [facility] RDW 13.4 12.3 - 15.4 % 08/19/2024 3:23 PM [facility] RDW-SD 42.4 37.0 - 54.0 fl 08/19[facility]2024 [facility] MPV 12.0 6.0 - 12.0 fL 08/19/2024 3:23 PM EDT [facility] Platelets 241 140 - 450 10*3/mm3 08/19/2024 3:23 PM EDT [facility] Neutrophil % 66.8 42.7 - 76.0 % 08/19/2024 3:[facility] Lymphocyte % 24.4 19.6 - 45.3 % 08/19/2024 3:23 [facility] Monocyte % 7.6 5.0 - 12.0 % 08/19/2024 3:23 [facility] Eosinophil % 0.7 0.3 - 6.2 % 08/19/2024 3:23 PM [facility] Basophil % 0.2 0.0 - 1.5 % 08/19/2024 3:23 PM [facility] Immature Grans % 0.3 0.0 - 0.5 % 08/19/2024 3:23 PM [facility] Neutrophils, Absolute 6.14 1.70 - 7.00 10*3/mm3 08/19/2024 3:23 PM [facility] Lymphocytes, Absolute 2.24 0.70 - 3.10 10*3/mm3 08/19/2024 3:23 PM [facility] Monocytes, Absolute 0.70 0.10 - 0.90 10*3/mm3 08/19/2024 3:23 PM EDT [facility] Eosinophils, Absolute 0.06 0.00 - 0.40 10*3/mm3 08/19/2024 3:23 PM [facility] Basophils, Absolute 0.02 0.00 - 0.20 10*3/mm3 08/19/2024 3:23 PM EDT [facility] Immature Grans, Absolute 0.03 0.00 - 0.05 10*3/mm3 08/19/2024 3:23 PM EDT [facility] nRBC 0.0 0.0 - 0.2 /100 WBC 08/19/2024 3:23 PM EDT [facility] Blood Line / Unknown 08/19/2024 3: 02 PM EDT 08/19/2024 3:10 PM EDT [facility] Dirk Mitchells LAB BLOOD ORDERABLES Final Result [facility]
[address] [place] [address], * Protein / Creatinine Ratio, Urine - [...] Kt Fan URINE ORDERABLES Final Resu lt [facility]
[address] [place] [address], * Type & Screen (08/19/2024 3:02 PM EDT) ABO Type O 08/19/2024 3:51 PM EDT [facility] LABORAT[facility] RH type Positive 08/19/2024 3:51 PM EDT [facility] Antibody Screen Negative 08/19/2024 3:51 PM EDT [facility] T&S Expiration Date 08/22/2024 11:59:59 PM 08/19/2024 3:51 PM EDT [facility] Blood Line / Unknown 08/19/2024 3: 02 PM EDT 08/19/2024 3:15 PM EDT us Kt Fan DO BLOOD BANK TEST ORDERABLES Edited Result - Final Performing Organization Address [facility] Co de Phone Number [facility]
[address] [place] [address], [place] [phone] * (ABNORMAL) Magnesium (08/19/2024 3:02 PM EDT) Magnesium 1.5(L) 1.6 - 2.6 mg/dL 08/19/2024 5:12 PM EDT [facility] Blood Line / Unknown 08/19/2024 3: 02 PM EDT 08/19/2024 3:10 PM EDT us Kt Fan DO LAB BLOOD ORDERABLES Final Result Performing Organization Address [facility] Co de Phone Number [facility]
[address] [place] [address], [place] [phone] * Lipase (08/19/2024 3:02 PM EDT) Lipase 13 13 - 60 U/L 08/19/2024 3:36 PM EDT [facility] Blood Line / Unknown 08/19/2024 3: 02 PM EDT 08/19/2024 3:10 PM EDT us Kt Fan DO LAB BLOOD ORDERABLES Final Result Performing Organization Address City/[facility]/ZIP Co de Phone Number [facility]
[address] [place] [address], * Amylase (08/19/2024 3:02 PM EDT) Amylase 73 28 - 100 U/L 08/19/2024 3:36 PM EDT [facility] Blood Line / Unknown 08/19/2024 3: 02 PM EDT 08/19/2024 3:10 PM EDT Kt Fan DO LAB BLOOD ORDERABLES Final Result [facility]
[address] [place] [address], * [place] Ob 14 + Weeks Single or First Gestation (07/05/2024 10:17 AM EDT) Anatomical Region Laterality Modality Body Ultrasound 07/05/2024 10:2 8 AM EDT Narrative 07/09/2024 7:02 PM EDT PAT NAME: CAROLE GIRARD MED REC#: [id number] DA: 1990 PAT GEND: F PAT TYPE: O EXAM TRAVIS: [id number] REF PHYS URIEL RUSS Orthopaedic Surgeon Comments Still need heart views and PCI [...] EFW (oz) 9 oz EFW by: Hadlock ([id number]) Extended Brick Stacker 6.4 mm CM 3.3 mm 11% Nicolaides [...] Heart / Thorax 3-vessel view: not visualized 7-yqigvn-unqhyyc view: not visualized Diaphragm: Appears normal Diaphragm: [...] subsequent visit to complete the anatomic screening. Orthopaedic Surgeon: Soo Harding RDMS Physician: Uriel Russ II, MD, FACOG Electronically signed by: Uriel Russ II, MD, FACOG at: 19:02 Procedure Note Uriel Russ MD - 07/09/2024 PAT NAME: ACROLE GIRARD MED REC#: [id number] DA: [id number] PAT GEND: F PAT TYPE: O EXAM TRAVIS: [id number] REF PHYS URIEL RUSS Orthopaedic Surgeon Comments Still need heart views and PCI N/L, Kidneys, Legs suboptimal Indication ======== anatomy survey Comparison Studies There are no relevant prior studies to which this study is beingcompared Method ======= [place] E6, Transabdominal ultrasound examination. View: Suboptimal view:limited by early gestational age ========= Love . Number of fetuses: 1 Dating ====== Method of dating:based on stated DUSTY GA by prior [id number] w + 5 d DUSTY by prior assessment:12/01/2024 Ultrasound examination on:07/05/2024 GA by U/S based upon:AC, BPD, Femur, HC GA by U/S18 w + 3 d DUSTY by U/S:12/03/2024 Previous dating:based on stated DUSTY, selected on 06/25/2024 Agreed DUSTY of previous datin12/01/2024 Assigned:based on stated DUSTY, selected on 07/05/2024 Assigned [id number] w + 5 d Assigned DUSTY:12/01/2024 [email or web address] d General Evaluation Cardiac activity present. FHR [...] 67% Hadlock HC / AC1.13 20% Hadlock [id number] g 18w 6d 56% Hadlock EFW (lb)0 lb EFW (oz)9 oz EFW by:Hadlock ([id number]) Extended Vp6.4 mm CM3.3 mm 11% Nicolaides Extremities / Bony Struc FL / BPD0.80 >99% Hadlock FL / HC0.20 98% Hadlock FL / AC0.23 89% Hadlock Other Structures [id number] bpm Anatomy Cranium:Appears normal Lateral ventricles:Appears normal Choroid plexus:Appears normal Midline falx:Appears normal Cavum septi pellucidi:Appears normal Cerebellum:Appears normal Cisterna magna:Appears normal Lips:suboptimal Profile:Appears normal Nose:suboptimal 4-chamber view:not visualized RVOT view:not visualized LVOT view:not visualized Heart / Thorax 3-vessel view:not visualized 7-spcyvd-qdfbjgb view:not visualized Diaphragm:Appears normal Diaphragm:Intact Cord insertion:Appears [...] Structures Uterus / Cervix Uterus:Visualized Cervix:Visualized Cervical apyqbu93.6 mm Ovaries / Tubes / Adnexa Rt [...] a subsequent visit tocomplete the anatomic screening. Orthopaedic Surgeon: Soo Harding RDMS Physician: Uriel Russ II, MD, FACOG Electronically signed by: Uriel Russ II, MD, FACOG at: 0319:02 Uriel Russ MD [facility] ORDERABLES Final Result * Urine Culture - [...] / Unknown 07/05/2024 07/05/2024 Comment:Urine Release to [facility] Narrative [facility] (AMBULATORY) - 07/07/2024 3:35 AM EDT Performed at: - [facility] [address] [place], [place] [id number] Truck Hopper: Michael Martinez PhD, Phone: [phone] Kelly Shanel Delgado NETWORK SYSTEMS ANALYST MICROBIOLOGY - GENERAL ORDER FRANCO Final Result Performing Organization Address [facility] Co de Phone Number [facility] (AMBULATORY) [address] [place] [address], [facility] [address] [place] [address], * Tryptase (06/25/2024 4:34 PM EDT) Tryptase 6.1 2.2 - 13.2 ug/L [facility] Blood 06/25/2024 4:34 PM EDT 06/25/2024 [facility] - 06/28/2024 9:10 AM EDT Performed at: [address] [id number] Truck Hopper: Fang Yu MD, Phone: [phone] Uriel Russ MD LAB BLOOD ORDERABLES Final Resu lt Performing Organization Address [facility] Co de Phone Number [facility] ([facility]) [address] [place] [address], [facility] [address] [place] [address], * Vitamin D,25-Hydroxy (06/25/2024 4:34 PM EDT) 25 Hydroxy, Vitamin D 33.7 30.0 - 100.0 ng/mL [facility] Comment: Vitamin D deficiency has been defined by the [place] of Medicine and an Endocrine Society practice guideline as a level of serum 25-OH vitamin D less than 20 ng/mL (1,2). The Endocrine Society went on to further define vitamin D insufficiency as a level between 21 and 29 ng/mL (2). 1. IOM ([place] of Medicine). 2010. Dietary reference intakes for calcium and D. [place]: The National Academies Press. 2. [place]alle [place], [place], Wade MITCHELL, et al. Evaluation, treatment, and prevention of vitamin D deficiency: an Endocrine Society clinical practice guideline. JCEM. 2010; 96(7):1911-30. Blood 06/25/2024 4:34 PM EDT 06/25/2024 Narrative [facility] (AMBULATORY) - 06/26/2024 7:37 AM EDT Performed at: 01 - [address] [id number] Truck Hopper: Michael Martinez PhD, Phone: [phone] us Uriel Russ MD LAB BLOOD ORDERABLES Final Resu lt Performing Organization Address City/[facility]/ZIP Co de Phone Number [facility] ([facility]) [address] [place] [address], [facility] [address] [place] [address], * TSH (06/25/2024 4:34 PM EDT) [facility] TSH 0.593 0.450 - 4.500 uIU/mL [facility] Blood 06/25/2024 4:34 PM EDT 06/25/2024 [facility] (AMBULATORY) - 06/26/2024 7:37 AM EDT Performed at: [facility] [address] [id number] Truck Hopper: Michael Martinez PhD, Phone: [phone] us Uriel Russ MD LAB BLOOD ORDERABLES Final Resu lt Performing Organization Address City/[facility]/ZIP Co de Phone Number [facility] [address] [place] [address], [facility] [address] [place] [address], * T4, Free (06/25/2024 4:34 PM EDT) Pathologist [facility] Free T4 1.09 0.82 - 1.77 ng/dL [facility] Blood 06/25/2024 4:34 PM EDT 06/25/2024 Narrative [facility] (AMBULATORY) - 06/26/2024 7:37 AM EDT Performed at: 01 - [address] [id number] Truck Hopper: Michael Martinez PhD, Phone: [phone] us Uriel Russ MD LAB BLOOD ORDERABLES Final Resu lt Performing Organization Address City/[facility]/ZIP Co de Phone Number [facility] [address] [place] [address], [place] [phone] [facility] [address] [place] [address], [place] [phone] * (ABNORMAL) Hemoglobin A1c (06/25/2024 4:34 PM EDT) [facility] Hemoglobin A1C 4.7(L) 4.8 - 5.6 % [facility] Comment: Prediabetes: 5.7 - 6.4 Diabetes: >6.4 Glycemic control for adults with diabetes: <7.0 Blood 06/25/2024 4:34 PM EDT 06/25/2024 Narrative [facility] ([facility]) - 06/26/2024 4:35 AM EDT Performed at: - [address] [id number] Truck Hopper: Michael Martinez PhD, Phone: [phone] us Uriel Russ MD LAB BLOOD ORDERABLES Final Resu lt Performing Organization Address City/[facility]/ZIP Co de Phone Number [facility] [address] [place] [address], [place] [phone] [facility] [address] [place] [address], [place] [phone] * (ABNORMAL) Lipid Panel (06/25/2024 4:34 PM EDT) Total Cholesterol 203(H) 100 - 199 mg/dL [facility] Triglycerides 125 0 - 149 mg/dL [facility] HDL Cholesterol 52 >39 mg/dL [facility] VLDL Cholesterol Rom 22 5 - 40 mg/dL [facility] LDL Chol Calc (NIH) 129(H) 0 - 99 mg/dL [facility] Blood 06/25/2024 4:34 PM EDT 06/25/2024 Narrative [facility] (AMBULATORY) - 06/26/2024 6:36 AM EDT Performed at: 01 - [address] [id number] Truck Hopper: Michael Martinez PhD, Phone: [phone] us Uriel uRss MD LAB BLOOD ORDERABLES Final Resu lt [email or web address] ([facility]BULATORY) [address] [place] [address], [facility] [address] [place] [address], * US Ob Limited 1 + Fetuses (06/25/2024 3:10 PM EDT) Anatomical Region Laterality Modality Body Ultrasound 06/25/2024 3:54 PM EDT Narrative 06/26/2024 1:34 PM EDT PAT NAME: CAROLE GIRARD MED REC#: [id number] DA: 1990 PAT GEND: F PAT TYPE: O EXAM TRAVIS: [id number] REF PHYS URIEL RUSS Indication ======== Heart [...] clinically indicated for the condition being monitored. Orthopaedic Surgeon: RT Annetta Bruno, [facility] Physician: Uriel Russ II, MD, FACOG Electronically signed by: Uriel Russ II, MD, FACOG at: 13:34 Procedure Note Uriel Russ MD - 06/26/2024 PAT NAME: CAROLE GIRARD MED REC#: [id number] DA: 1990 PAT GEND: F PAT TYPE: O EXAM TRAVIS: [id number] REF PHYS URIEL RUSS Indication ======== Heart Tones Comparison Studies The findings of this study are compared to the prior ultrasound studydated 05/27/2024 Method ======= Transabdominal ultrasound examination. View: Suboptimal view: limited byfetal position ========= Love . Number of fetuses: 1 Dating ====== Method of dating:based on stated DUSTY GA by prior [id number] w + 2 d DUSTY by prior assessment:12/01/2024 Previous dating:based on stated DUSTY, selected on 05/27/2024 Agreed DUSTY of previous datin12/01/2024 Assigned:based on stated DUSTY, selected on 06/25/2024 Assigned [id number] w + 2 d Assigned DUSTY:12/01/2024 [id number] d General Evaluation Cardiac activity present. FHR 150 bpm. movements visualized. Presentation variable. Placenta Placental site: anterior. Amniotic fluid Amount of AF: normal. MVP 2.7 cm. Maternal Structures Uterus / Cervix Cervical oqgbpg88.1 mm Impression heart tones 150. 17 weeks 2 days. EDC 12/01/2024. Single fetus.Cervical length 33 mm. Recommendation Follow-up scan as clinically indicated for the condition beingmonitored. Orthopaedic Surgeon: RT Annetta Bruno, [facility] Physician: Uriel Russ II, MD, FACOG Electronically signed by: Uriel Russ II, MD, FACOG at: :34 Uriel Russ MD [facility] US ORDERABLES Final Result * Hepatitis C Antibody (04/12/2024) Hep C Virus Ab negative Blood us Historical Provider LAB BLOOD ORDERABLES Lena l Result from Last 3 Months or Most Recently Relevant to Health Maintenance Insurance [facility] [facility] Care Teams Enamel Applier Relationship Specialty Start Date End Date Norma Friedman APRN [address] [place] G[address] [place]FA[place] APPIAH [address] PCP - General Family Medicine 05/14/24
--- OUTSIDE RECORDS SUMMARY | 2024-09-09 08:54 | XMS_ITS ---
Author Organization [facility] Address [address] [place] [address] Care Team Providers Care Parts Consultant Name Role Phone Norma Friedman APRN Primary Care Provider [phone] Motherhood Connection Status:Engaged (Active) Start date:05/23/2024 Enrollment date:05/23/2024 Case Team Name Relationship Phone Bindu Castellon RN Nurse Navigator Christy Zabala RN(Responsible Staff) Nurse Navig ator Continued Care and Services Coordination
--- OUTSIDE RECORDS SUMMARY | 2024-09-09 08:54 | XMS_ITS | Encounter Summary ---
[facility] Address [address] [place] [address] Care Team Providers Care Transfer Specialist Name Role Phone Ivyashlyn Norma FERNÁNDEZ Primary Care Provider + [phone] Encounter Details Date Type Department Care Team (Late st Contact Info) Description 08/27/2024 Telephone [facility] OBGYN [address] [place] [address] Staci Jain MD [address] [facility] [address] [place] [address] Social History Tobacco Use Types Packs/Day Years Used Date Smoking Tobacco: Never Smokeless Tobacco: Never Alcohol Use Standard Drinks/Week Comments Never 0 (1 standard drink = 0.6 oz pur e alcohol) [facility] Utilities Answer Date Recorded In the past 12 months has [employer], [employer], oil, or water [email or web address] threatened to shut off services in your [...] and heating? Not hard at all 05/28/2024 [facility] [place] of Occupat ional Health - Occupational Stress [...] GED or equivalent No 05/28/2024 Preferred Language Senegalese 05/28/2024 PHQ-2 Answer Date Recorded Patient Health [...] Visit [facility] GASTROENTEROLOGY [address] [phone] Robbin Escalante MD [address] [address] Scheduled Orders Name Type Priority Associated Diagnoses Orde r Schedule Basic Metabolic Panel Lab Routine History of hypokalemia Expected: 09/01/2024 (Approximate), Expires: 11/27/2025 documented as of this encounter Visit Diagnoses Diagnosis History of hypokalemia- Primary documented in this encounter Additional Health Concerns Assessment Noted Time PHQ-2 Depression Total Score: 2 05/28/19 25 4:39 PM EDT documented as of this encounter Care Teams Transfer Specialist Relationship Specialty Start Date End Date Norma Friedman APRN [address] [place] [address] [place]IAH [address] PCP - General Family Medicine 05/14/24 documented as of this encounter
--- OUTSIDE RECORDS SUMMARY | 2024-09-09 08:54 | XMS_ITS | Clinical Summary ---
Author Organization [employer] ([place], [place], [place], [place]) Address [address] [place] [address] Care Team Providers Care Children'S Minister Name Role Phone Unavailable Primary Care Provider [...]
--- OUTSIDE RECORDS SUMMARY | 2024-09-09 08:54 | XMS_ITS ---
Author Organization [facility] Address [address] [place] [address] Care Team Providers Care Slubber Tender Name Role Phone Unavailable Primary Care Provider Unavailabl e Transplant Episode Kidney Potential Donor [facility] ([place], [place]) - [facility] Referred on 05/03/2022 Marked as Deferred on 05/04/2022 Reason: Other Kidney CoordinatorNadine Augustin R.N. Phone: N/A Fax: N/A Email: N/A Care Team Name Role Phone Fax Email Nadine Augustin R.N. Kidney Coordinator N/A N/A N/A Events Pre-Donation Referred: 05/03/2022
--- OUTSIDE RECORDS SUMMARY | 2024-09-09 08:54 | XMS_ITS | Encounter Summary ---
Author Organization [employer] ([place], [place], [place], [place]) Address [address] [place] [address] Care Team Providers Care Flight Steward Name Role Phone Unavailable Primary Care Provider Unavailabl e Encounter Details Date Type Department Care Team (Late st Contact Info) Description 07/17/2019 Transcribed Document [facility] Family Medicine [address] [place] [address] ProviderEleno MD [address] [place], [place] [address] Social History Tobacco Use Types Packs/Day Years [...] On: 07/17/2019 19:17 EDT by KARLENE MCKINLEY wind turbine design engineer Process Patient Disposition : AMA/Elope/LWBS KARLENE MCKINLEY [...]
--- OUTSIDE RECORDS SUMMARY | 2024-09-09 08:54 | XMS_ITS | Encounter Summary ---
[facility] Address [address] [place] [address] Care Team Providers Care Pull Up Hand Name Role Phone Norma Friedman APRN Primary Care Provider + [phone] Encounter Details Date Type Department Care Team (Late st Contact Info) Description 08/19/2024 Telephone [facility] OBGYN [address] [place] [address] Jacey Mathews, BRAND ENGINEER [address] [facility] [address] [place] [address] Social History Tobacco Use Types Packs/Day Years Used Date Smoking Tobacco: Never Smokeless Tobacco: Never Alcohol Use Standard Drinks/Week Comments Never 0 (1 standard drink = 0.6 oz pur e alcohol) [facility] Utilities Answer Date Recorded In the past 12 months has [employer], [employer], oil, or water [employer] threatened to shut off services in your [...] and heating? Not hard at all 05/28/2024 [facility] of Occupat ional [facility] - Occupational Stress Questionnaire Answer Date [...] GED or equivalent No 05/28/2024 Preferred Language Burundian 05/28/2024 PHQ-2 Answer Date Recorded Patient Health [...] Visit [facility] GASTROENTEROLOGY [address] [phone] Robbin Escalante MD [address] [address] documented as of this encounter Visit Diagnoses Not on filedocumented in this encounter Additional Health Concerns Assessment Noted Time PHQ-2 Depression Total Score: 2 05/28/19 25 4:39 PM EDT documented as of this encounter Care Teams Pull Up Hand Relationship Specialty Start Date End Date Norma Friedman APRN [address] [place] [address] [place] [address] PCP - General Family Medicine 05/14/24 documented as of this encounter
--- OUTSIDE RECORDS SUMMARY | 2024-09-09 08:54 | XMS_ITS | Encounter Summary ---
Author Organization [facility] Address [address] [place] [address] Care Team Providers Care Solar System Installer Name Role Phone Elder Norma FERNÁNDEZ Primary Care Provider + [phone] Encounter Details Date Type Department Care Team (Latest Contact Info) Description 08/19/2024 Travel Social History Tobacco Use Types Packs/Day Years Used Date Smoking Tobacco: Never Smokeless Tobacco: Never Alcohol Use Standard Drinks/Week Comments Never 0 (1 standard drink = 0.6 oz pur e alcohol) [facility] Utilities Answer Date Recorded In the past 12 months has [employer] electric, gas, oil, or water company threatened [...] at all 05/28/2024 [facility] [place] of Occupat ional Health - Occupational Stress [...] GED or equivalent No 05/28/2024 Preferred Language Cymraes 05/28/2024 PHQ-2 Answer Date Recorded Patient Health [...] 2:34 PM EDT Nneka Cross RN * Williams Suicide Severity Rating Scale (Screener/Recent Self-Report) Question Answer Date of Assessment Author 6. Suicidal Behavior (Lifetime) No 2:34 PM EDT Nneka Cross RN documented as of this encounter Plan of Treatment Upcoming Encounters Date Type Department Care Team (Late st Contact Info) Description 01/20/2025 3:30 PM EST Office Visit [facility] GASTROENTEROLOGY [address] [phone] Robbin Escalante MD [address] [address] documented as of this encounter Visit Diagnoses Not on filedocumented in this encounter Additional Health Concerns Assessment Noted Time PHQ-2 Depression Total Score: 2 05/28/19 25 4:39 PM EDT documented as of this encounter Care Teams Solar System Installer Relationship Specialty Start Date End Date Norma Friedman APRN [address] [place] [address] [place] [address] PCP - General Family Medicine 05/14/24 documented as of this encounter
--- OUTSIDE RECORDS SUMMARY | 2024-09-09 08:54 | XMS_ITS | Encounter Summary ---
[facility] Address [address] [place] [address] Care Team Providers Care Barrel Lapper Name Role Phone Elder Norma FERNÁNDEZ Primary Care Provider + [phone] Encounter Details Date Type Department Care Team (Latest Contact Info) Description 08/29/2024 Travel Social History Tobacco Use Types Packs/Day Years Used Date Smoking Tobacco: Never Smokeless Tobacco: Never Alcohol Use Standard Drinks/Week Comments Never 0 (1 standard drink = 0.6 oz pur e alcohol) [facility] Utilities Answer Date Recorded In the past 12 months has [employer] electric, gas, oil, or water company threatened [...] and heating? Not hard at all 05/28/2024 [facility] [place] of Occupat ional Health - Occupational Stress [...] Description 01/20/2025 3:30 PM EST Office Visit [facility] GASTROENTEROLOGY [address] [facility] [address] [place] [phone] Robbin Escalante MD [address] [facility] [address] [place] [address] documented as of this encounter Visit Diagnoses Not on filedocumented in this encounter Additional Health Concerns Assessment Noted Time PHQ-2 Depression Total Score: 2 05/28/19 25 4:39 PM EDT documented as of this encounter Care Teams Barrel Lapper Relationship Specialty Start Date End Date Norma Friedman APRN [address] [place] [address] [place] [address] PCP - General Family Medicine 05/14/24 documented as of this encounter
--- OUTSIDE RECORDS SUMMARY | 2024-09-09 08:54 | XMS_ITS | Encounter Summary ---
[facility] Organization [facility] Address [address] [place] [phone] Care Team Providers Care Wheelabrator Operator Name Role Phone Elder Norma FERNÁNDEZ Primary Care Provider + [phone] Encounter Details Date Type Department Care Team (Late st Contact Info) Description 07/07/2024 Results Follow-Up [facility] OBGYN [address] [place] [address] [place] [phone] Kelly Delgado APRN 1700 [facility] [address] [place] [address] Social History Tobacco Use Types Packs/Day Years Used Date Smoking Tobacco: Never Smokeless Tobacco: Never Alcohol Use Standard Drinks/Week Comments Never 0 (1 standard drink = 0.6 oz pur e alcohol) [facility] Utilities Answer Date Recorded In the past 12 months has [employer], gas, oil, or water [employer] threatened to shut off services in your [...] and heating? Not hard at all 05/28/2024 [facility] of Occupat ional Health - Occupational [...] GED or equivalent No 05/28/2024 Preferred Language Yakut 05/28/2024 PHQ-2 Answer Date Recorded Patient Health [...] Office Visit [facility] [address] [facility] [address] Robbin Escalante MD [address] [address] documented as of this encounter Visit Diagnoses Not on filedocumented in this encounter Additional Health Concerns Assessment Noted Time PHQ-2 Depression Total Score: 2 05/28/19 25 4:39 PM EDT documented as of this encounter Care Teams Wheelabrator Operator Relationship Specialty Start Date End Date Norma Friedman APRN [address] [place] [address] [place] [address] PCP - General Family Medicine 05/14/24 documented as of this encounter
--- OUTSIDE RECORDS SUMMARY | 2024-09-09 08:54 | XMS_ITS | Clinical Summary ---
Author Organization [facility] Address [address] [place] [address] Care Team Providers Care Ux Developer Name Role Phone Unavailable Primary Care Provider Unavailabl e Source Comments [facility] is fully rolled out with thefollowing exceptions:General Clinical Research [facility] Social History Tobacco Use Types Packs/Day [...]
--- OUTSIDE RECORDS SUMMARY | 2024-09-09 08:54 | XMS_ITS | Encounter Summary ---
[facility] Address [address] [place] [phone] Care Team Providers Care Rock Mason Name Role Phone IvyKade goldbergjoseseven JOLENE Primary Care Provider + [phone] Encounter Details Date Type Department Care Team (Late st Contact Info) Description 07/25/2024 Patient Outreach [facility] LABOR DELIVERY [address] [place] [phone] Christy Zabala, RN Social History Tobacco Use Types Packs/Day Years Used Date Smoking Tobacco: Never Smokeless Tobacco: Never Alcohol Use Standard Drinks/Week Comments Never 0 (1 standard drink = 0.6 oz pur e alcohol) [facility] Utilities Answer Date Recorded In [...] and heating? Not hard at all 05/28/2024 [facility] [place] of Occupat ional Health - Occupational Stress [...] GED or equivalent No 05/28/2024 Preferred Language Arabic 05/28/2024 PHQ-2 Answer Date Recorded Patient Health [...] needs assessment and wellness check. Christy Wilson RN Maternity Nurse Navigator 07/25/2024, 10:59 EDT documented in this encounter Plan of Treatment Upcoming Encounters Date Type Department Care Team (Late st Contact Info) Description 01/20/2025 3:30 PM EST Office Visit [facility] GASTROENTEROLOGY [address] [address] Robbin Escalante MD [address] [place] [address] [place] [address] documented as of this encounter Visit Diagnoses Not on filedocumented in this encounter Additional Health Concerns Assessment Noted Time PHQ-2 Depression Total Score: 2 05/28/19 25 4:39 PM EDT documented as of this encounter Care Teams Rock Mason Relationship Specialty Start Date End Date Norma Friedman APRN [address] [place] [address] [place] [address] PCP - General Family Medicine 05/14/24 documented as of this encounter
--- OUTSIDE RECORDS SUMMARY | 2024-09-09 08:54 | XMS_ITS | Referral Summary ---
Author Organization [employer] ([place], [place], [place], [place]) Address [address] [place] [address] Care Team Providers Care Ent Physician Name Role Phone Unavailable Primary Care Provider [...]
--- OUTSIDE RECORDS SUMMARY | 2024-09-09 08:54 | XMS_ITS | Encounter Summary ---
Author Organization [facility] Address [address] [place] [id number] Care Team Providers Care Studio Associate Name Role Phone Ivyashlyn Norma FERNÁNDEZ Primary Care Provider + [phone] Encounter Details Date Type Department Care Team (Late st Contact Info) Description 08/28/2024 Telephone [facility] OBGYN [address] [address] Staci Jain MD [address] [place] [id number] Social History Tobacco Use Types Packs/Day Years Used Date Smoking Tobacco: Never Smokeless Tobacco: Never Alcohol Use Standard Drinks/Week Comments Never 0 (1 standard drink = 0.6 oz pur e alcohol) [facility] Utilities Answer Date Recorded In the past 12 months has [employer], gas, oil, or water [employer] threatened to shut off services in your [...] sit with a family member admitted to [facility] today and does not know if she can make it back for labs (BMP). She does have an appt in [facility] at 10 am tomorrow. Advisedthat it would [...] states she was supposed to come into [place] office today to have labs drawn however sheis currently hung up at [facility] is wondering if she could just have labs drawn there? documented in this encounter Plan of Treatment Upcoming Encounters Date Type Department Care Team (Late st Contact Info) Description 01/20/2025 3:30 PM EST Office Visit [facility] GASTROENTEROLOGY [address] [facility] [address] [place] [address] Robbin Escalante MD [address] [facility] [address] [place] [address] documented as of this encounter Visit Diagnoses Not on filedocumented in this encounter Additional Health Concerns Assessment Noted Time PHQ-2 Depression Total Score: 2 05/28/19 25 4:39 PM EDT documented as of this encounter Care Teams Studio Associate Relationship Specialty Start Date End Date Norma Friedman APRN [address] [place] [place] APP[place]H [address] PCP - General Family Medicine 05/14/24 documented as of this encounter
--- OUTSIDE RECORDS SUMMARY | 2024-09-09 08:55 | XMS_ITS | Encounter Summary ---
[facility] Address [address] [place] [id number] Care Team Providers Care Automobile Body Worker Name Role Phone Ivyashlyn Valentinoseven JOLENE Primary Care Provider + [phone] Encounter Details Date Type Department Care Team (Late st Contact Info) Description 06/26/2024 Results Follow-Up [facility] OBGYN [address] [address] Koby Roberts MD 1700 [place] [address] Social History Tobacco Use Types Packs/Day Years Used Date Smoking Tobacco: Never Smokeless Tobacco: Never Alcohol Use Standard Drinks/Week Comments Never 0 (1 standard drink = 0.6 oz pur e alcohol) [facility] Utilities Answer Date Recorded In the past 12 months has [employer], gas, oil, or water [employer] threatened to shut off services in your [...] heating? Not hard at all 05/28/2024 [facility] [place] of Occupat ional Health - [...] GED or equivalent No 05/28/2024 Preferred Language Greenlandic 05/28/2024 PHQ-2 Answer Date Recorded Patient Health [...] 01/20/2025 3:30 PM EST Office Visit [facility] [address] [facility] [address] Robbin Escalante MD [address] [address] documented as of this encounter Visit Diagnoses Not on filedocumented in this encounter Additional Health Concerns Assessment Noted Time PHQ-2 Depression Total Score: 2 05/28/19 25 4:39 PM EDT documented as of this encounter Care Teams Automobile Body Worker Relationship Specialty Start Date End Date Norma Friedman APRN [address] [place] [place] APPIAH [address] PCP - General Family Medicine 05/14/24 documented as of this encounter
--- OUTSIDE RECORDS SUMMARY | 2024-09-09 08:55 | XMS_ITS | Encounter Summary ---
[facility] Address [address] [place] [phone] Care Team Providers Care Film Masker Name Role Phone IvyKade goldbergjoseseven JOLENE Primary Care Provider + [phone] Encounter Details Date Type Department Care Team (Late st Contact Info) Description 09/03/2024 Results Follow-Up [facility] OBGYN [address] [place] [address] Staci Jain MD 1700 [facility] [address] [place] [address] Social History Tobacco Use Types Packs/Day Years Used Date Smoking Tobacco: Never Smokeless Tobacco: Never Alcohol Use Standard Drinks/Week Comments Never 0 (1 standard drink = 0.6 oz pur e alcohol) [facility] Utilities Answer Date Recorded In the past 12 months has [employer], gas, oil, or water [employer] threatened to shut off services in [...] and heating? Not hard at all 05/28/2024 [facility] of Occupat ional Health - Occupational Stress [...] [facility] GASTR[facility]ENTER[facility] [address] [address] Robbin Escalante MD [address] [address] documented as of this encounter Visit Diagnoses Not on filedocumented in this encounter Additional Health Concerns Assessment Noted Time PHQ-2 Depression Total Score: 2 05/28/19 4:39 PM EDT documented as of this encounter Care Teams Film Masker Relationship Specialty Start Date End Date Norma Friedman APRN [address] [place] [place]H [address] PCP - General Family Medicine 05/14/24 documented as of this encounter
--- OUTSIDE RECORDS SUMMARY | 2024-09-09 08:55 | XMS_ITS | Encounter Summary ---
[facility] Address [address] [place] [address] Care Team Providers Care Bark Press Operator Name Role Phone Elder Norma FERNÁNDEZ Primary Care Provider + [phone] Encounter Details Date Type Department Care Team (Latest Contact Info) Description 07/22/2024 Travel Social History Tobacco Use Types Packs/Day Years Used Date Smoking Tobacco: Never Smokeless Tobacco: Never Alcohol Use Standard Drinks/Week Comments Never 0 (1 standard drink = 0.6 oz pur e alcohol) [facility] Utilities Answer Date Recorded In the past 12 months has [employer], gas, oil, or water company threatened [...] hard at all 05/28/2024 [facility] [place] of Occupat ional Health - Occupational Stress [...] Office Visit [facility] GASTR[facility]ENTEROLOGY 17[address] [facility] [address] [place] [address] Robbin Escalante MD [address]20 [facility] [address] [place] [address] documented as of this encounter Visit Diagnoses Not on filedocumented in this encounter Additional Health Concerns Assessment Noted Time PHQ-2 Depression Total Score: 2 05/28/19 25 4:39 PM EDT documented as of this encounter Care Teams Bark Press Operator Relationship Specialty Start Date End Date Norma Friedman APRN [address] [place] [place]H [address] PCP - General Family Medicine 05/14/24 documented as of this encounter
--- OUTSIDE RECORDS SUMMARY | 2024-09-09 08:55 | XMS_ITS | Encounter Summary ---
Author Organization Healthcare Address [address] [place] [address] Care Team Providers Care Surgical Rn Name Role Phone Unavailable Primary Care Provider Unavailabl e Encounter Details Date Type Department Care Team (Late st Contact Info) Description 07/22/2024 [facility] [address] [place] [address] Sandy Cardenas MD 1700 [facility] [address] [place] [phone] Social History Tobacco Use Types Packs/Day Years [...]
--- OUTSIDE RECORDS SUMMARY | 2024-09-09 08:55 | XMS_ITS | Encounter Summary ---
[facility] Address [address] [place] [phone] Care Team Providers Care Assembly Line Machine Operator Name Role Phone Ivyashlyn Norma FERNÁNDEZ Primary Care Provider + [phone] Encounter Details Date Type Department Care Team (Late st Contact Info) Description 09/02/2024 Telephone [facility] OBGYN [address] [address] Staci Jain MD 17[address] [place] [id number] Social History Tobacco Use Types Packs/Day Years Used Date Smoking Tobacco: Never Smokeless Tobacco: Never Alcohol Use Standard Drinks/Week Comments Never 0 (1 standard drink = 0.6 oz pur e alcohol) [facility] Utilities Answer Date Recorded In the past 12 months has [employer], gas, oil, or water [employer] threatened to shut off services in your [...] and heating? Not hard at all 05/28/2024 [facility] of Occupat ional Health - Occupational [...] PM EDT She just got d/c'd from [facility] 2 hours ago and they gave her a total 10 MLE of K+ and 3 units of Mag and 2 liters of LR. She has decided to transfer care to [facility] as it iscloser to her like 15 min away. She wants you (Dr. Jain) to know this has nothing to you but rather the nurses and glass scullion doctor did not relay the labs to you in a faster fashion. She said you can call her if you want and she is not angry. Dr. Jain was notified. * Telephone Encounter - Frederick Gruber RN - 09/02/2024 3:10 PM EDT [employer] message sent to the pt regarding outpt infusion apt tomorrow at [facility]. documented in this encounter Plan of Treatment Upcoming Encounters Date Type Department Care Team (Late st Contact Info) Description 01/20/2025 3:30 PM EST Office Visit [facility] GASTROENTEROLOGY [address] [place] [address] [place] [address] Robbin Escalante MD [address]20 [facility] [address] [place] [address] documented as of this encounter Visit Diagnoses Not on filedocumented in this encounter Additional Health Concerns Assessment Noted Time PHQ-2 Depression Total Score: 2 05/28/19 25 4:39 PM EDT documented as of this encounter Care Teams Assembly Line Machine Operator Relationship Specialty Start Date End Date Norma Friedman APRN [address] [place] [address] [place] [address] PCP - General Family Medicine 05/14/24 documented as of this encounter
[2024-09-09 09:19] LABS: Albumin Level 2.8 g/dl (3.5-5.0); Chloride 103 mmol/L (98-107); Sodium 133 mmol/L (136-145)
[2024-09-09 09:22] LABS: Alanine Aminotransferase 15 U/L (12-78); Albumin/Globulin Ratio 0.8 (1.1-1.8); Alkaline Phosphatase 81 U/L (38-126); Anion Gap 7.9 mEq/L (5-15); Aspartate Amino Transferase 27 U/L (14-36); Bilirubin,Total 0.6 mg/dl (0.2-1.3); Blood Urea Nitrogen 4 mg/dl (7-17); Calcium 8.7 mg/dl (8.4-10.2); Carbon Dioxide 25 mmol/L (22.0-30.0); Creatinine Clearance Estimated 178 mL/min (50-200); Creatinine,Serum 0.50 mg/dl (0.52-1.04); Estimated Glomerular Filt Rate 142 ml/min (>60); GFR (African American) 172 ML/MIN (>60); Globulin 3.7 g/dL (1.3-3.2); Glucose 79 mg/dl (74-100); Total Protein,Serum 6.5 g/dl (6.3-8.2)
[2024-09-09 09:23] LABS: Magnesium 1.3 mg/dl (1.6-2.3)
[2024-09-09 09:27] LABS: Potassium 2.9 mmoL/L (3.5-5.1)
[2024-09-09 10:00] VITALS: BP 114/77; PULSE 76; RESP 18; TEMP 36.8; O2SAT 100
[2024-09-09] MEDS: MAGNESIUM SULFATE IN WATER 2 GM/50 ML PIGGYBACK IV ×2 (10:00→11:00)
[2024-09-09] MEDS: 0.9% NaCl w/40mEq KCL 1,000 ML 250 ML IV (10:00)
[2024-09-09 10:56] VITALS: BP 109/71; PULSE 80
[2024-09-09 12:00] VITALS: BP 113/68; PULSE 81
== END 2024-09-09 12:05 | disposition home or self-care (01) ==
LOC: INF 08:46
PROVIDERS: PCP Nurse Practitioner Family; Visit Provider Nurse Practitioner Obstetrics & Gynecology
DX: O21.9 Vomiting of pregnancy, unspecified (principal); O46.90 Antepartum hemorrhage, unspecified, unspecified trimester; N96 Recurrent pregnancy loss; Z3A.00 Weeks of gestation of pregnancy not specified
CPT/HCPCS: 80053; 83735; 87086; 96365; 96366; 96367; J3475; J3480

== ENCOUNTER 2024-09-10 15:19 | Observation (INO) | payer OTHER, SELFPAY ==
--- OUTSIDE RECORDS SUMMARY | 2024-07-22 07:44 | XMS_ITS | Encounter Summary ---
Author Organization [facility] Address [address] [place] [id number] Care Team Providers Care Ethylene Compressor Operator Name Role Phone Norma Friedman APRN Primary Care Provider + [phone] Reason for Referral * Diagnostic Imaging (Routine) - Closed Specialty Diagnoses / Procedures Referred By Tarik pedersen Referred To Contact Radiology Diagnoses care, antepartum, unspecified High risk due to history of labor, antepartum History of prior with small for gestational age Procedures [facility] Kelly Watkins APRN [address] [facility] [address] [place] [address] Phone: tel: fax: [facility] US PER DIAG CTR [address] [place] [address] Phone: tel: Referral ID Status Reason Start Date Expiration Date Visits Re quested Visits Authorized [id number] Closed 07/08/2024 10/07/2025 1 1 Reason for Visit * Diagnostic Imaging (Routine) - Closed Specialty Diagnoses / Procedures Referred By Tarik t Referred To Contact Radiology Diagnoses care, antepartum, unspecified High risk due to history of labor, antepartum History of prior with small for gestational age Procedures [facility] Kelly Watkins APRN [address] [facility] [address] [place] [address] Phone: tel: fax: [facility] US PER DIAG CTR [address] [place] [address] Phone: tel: Referral ID Status Reason Start Date Expiration Date Visits Re quested Visits Authorized [id number] Closed 07/08/2024 10/07/2025 1 1 Encounter Details Date Type Department Care Team (Late st Contact Info) Description 07/22/2024 7:44 AM EDT - 07/22/2024 11:59 PM EDT Hospital Encounter [facility] US PER DIAG CTR [address] [place] [phone] Kelly Watkins, REEL SYSTEM OPERATOR [address] [place] [address] care, antepartum, unspecified ; High risk due to history of labor, antepartum; History of prior with small for gestational age Discharge Disposition: Home or Self Care Social History Tobacco Use Types Packs/Day Years Used Date Smoking Tobacco: Never Smokeless Tobacco: Never Alcohol Use Standard Drinks/Week Comments Never 0 (1 standard drink = 0.6 oz pur e alcohol) [facility] Utilities Answer Date Recorded In the past 12 months has [employer] electric, gas, oil, or water [employer] threatened to shut off services in your [...] and heating? Not hard at all 05/28/2024 [facility] [place] of Occupat ional Health - Occupational Stress [...] GED or equivalent No 05/28/2024 Preferred Language Vietnamese 05/28/2024 PHQ-2 Answer Date Recorded Patient Health [...] Description 01/20/2025 3:30 PM EST Office Visit [facility] [address] [address] Robbin Escalante MD [address] [address] documented as of this encounter Procedures Procedure Name Priority Date/Time Associated Diagnosis Comments [facility] Routine 07/22/2024 9:10 AM EDT care, antepartum, unspecified High risk due to history of labor, antepartum History of prior with small for gestational age documented in this encounter Results * [facility] (07/22/2024 9:10 AM EDT) Anatomical Region Laterality Modality Ultrasound 07/22/2024 8:20 AM EDT Narrative 07/22/2024 9:18 AM EDT PAT NAME: CAROLE GIRARD MED REC#: [id number] DA: 1990 PAT GEND: F PAT TYPE: O EXAM TRAVIS: [id number] REF PHYS KELLY WATKINS Comparison Studies There [...] EFW (oz) 13 oz EFW by: Hadlock (HJY-RD-LE-FL) Extended Tibia 28.0 mm 20w 1d 17% Jamal Fibula 27.3 mm 19w 5d 17% Jamal Radius 26.9 mm 20w 0d 36% Jamal Ulna 30.0 mm 21w 1d 33% Jamal Cav. septi pel. tr 3.7 mm Padded Products Inspector Trimmer 5.4 mm CM 4.7 mm 32% Nicolaides [...] normal IVC: normal 3-vessel view: Appears normal 9-tehdob-vblhepi view: Appears normal Rt lung: Appears normal [...] Follow-up as clinically indicated. Coding ======= Description: 28425-47 Detailed Deck Steward: Cheyenne Spence RDMS Physician: Sebastian Larsen MD, FACOG Electronically signed by: Sebastian Larsen MD, FACOG at: 09:18 Procedure Note Sebastian Larsen MD - 07/22/2024 PAT NAME: CAROLE GIRARD MED REC#: [id number] DA: [id number] PAT GEND: F PAT TYPE: O EXAM TRAVIS: [id number] REF PHYS KELLY WATKINS Comparison Studies There are no relevant prior studies to which this study is beingcompared Patient Status Outpatient Indication ======== Incomplete anatomy, previous SGA, hx c/s x1 Maternal Assessment Xjagsk193 cm Height (ft)5 ft Height (in)4 in Vcszwd96 kg Weight (lb)163 lb BMI28.17 kg/m Method ======= Transabdominal ultrasound examination ========= Love . Number of fetuses: 1 Dating ====== Method of dating:based on stated DUSTY GA by prior thsvuszqly73 w + 1 d DUSTY by prior assessment:12/01/2024 Ultrasound examination on:07/22/2024 GA by U/S based upon:AC, BPD, Femur, HC GA by U/S20 w + 5 d DUSTY by U/S:12/04/2024 Previous dating:based on stated DUSTY, selected on 07/05/2024 Agreed DUSTY of previous datin12/01/2024 Assigned:based on stated DUSTY, selected on 07/22/2024 Assigned GA21 w + 1 d Assigned DUSTY:12/01/2024 d Biometry Standard BPD47.5 mm 20w 3d 19% Hadlock OFD63.7 mm 21w 5d 69% Jamal HC177.8 mm 20w 2d 9% Hadlock Cerebellum tr22.0 mm 20w 4d 46% Hill AC160.4 mm 21w 1d 43% Hadlock Femur33.9 mm 20w 5d 24% Hadlock Ibgjfbp84.7 mm 21w 0d 40% Jamal HC / AC1.11 BIH279 g 20w 5d 29% Hadlock EFW (lb)0 lb EFW (oz)13 oz EFW by:Hadlock (LJL-DY-CZ-FL) Extended Tibia28.0 mm 20w 1d 17% Jamal Conypa40.3 mm 19w 5d 17% Jamal Phsbic51.9 mm 20w 0d 36% Jamal Ulna30.0 mm 21w 1d 33% Jamal Cav. septi pel. tr3.7 mm Vp5.4 mm CM4.7 mm 32% Nicolaides Head / Face / Neck Cephalic index0.75 11% Nicolaides Extremities / Bony Struc FL / BPD0.71 FL / HC0.19 FL / AC0.21 Other Structures HLI096 bpm General Evaluation Cardiac activity present. FHR [...] view:Appears normal SVC:normal IVC:normal 3-vessel view:Appears normal 1-hpdewf-hdyautx view:Appears normal Rt lung:Appears normal Lt lung:normal [...] Recommendation Follow-up as clinically indicated. Coding ======= Description:85045-36 Detailed Deck Steward: Cheyenne Spence RDMS Physician: Sebastian Larsen MD, FACOG Electronically signed by: Sebastian Larsen MD, FACOG at: 09:18 Result [facility] Kelly Watkins APRN [facility] US ORDERABLES Final Resu lt documented in this encounter Visit Diagnoses Diagnosis care, antepartum, unspecified High risk due to history of labor, antepartum History of prior with small for gestational age documented in this encounter Additional Health Concerns Assessment Noted Time PHQ-2 Depression Total Score: 2 05/28/19 25 4:39 PM EDT documented as of this encounter Care Teams Ethylene Compressor Operator Relationship Specialty Start Date End Date Norma Friedman APRN [address] [place] G3 RAFAEL[place] APPIAH [address] PCP - General Family Medicine 05/14/24 documented as of this encounter
--- OUTSIDE RECORDS SUMMARY | 2024-07-22 08:00 | XMS_ITS | Encounter Summary ---
Author Organization [facility] Address [address] [place] [phone] Care Team Providers Care Active Directory Specialist Name Role Phone Ivyashlyn Valentinoseven JOLENE Primary Care Provider + [phone] Reason for Visit * Reason Comments incomplete anatomy; hx SGA in prev. preg onelia; prev. c/s Encounter Details Date Type Department Care Team (Late st Contact Info) Description 07/22/2024 8:00 AM EDT Office Visit [facility] MATERNAL MEDICINE [address] [place] [address] [place] [address] Sebastian Larsen MD 1700 [facility] [address] [place] [phone] History of prior with small for gestational age (Primary Dx) Social History Tobacco Use Types Packs/Day Years Used Date Smoking Tobacco: Never Smokeless Tobacco: Never Alcohol Use Standard Drinks/Week Comments Never 0 (1 standard drink = 0.6 oz pur e alcohol) [facility] Utilities Answer Date Recorded In the past 12 months has [employer] electric, gas, oil, or water company threatened [...] and heating? Not hard at all 05/28/2024 [facility] [place] of Occupat ional Health - Occupational Stress [...] GED or equivalent No 05/28/2024 Preferred Language Russian 05/28/2024 PHQ-2 Answer Date Recorded Patient Health [...] Description 01/20/2025 3:30 PM EST Office Visit [facility] GASTROENTEROLOGY [address] [facility] [address] [place] [address] Robbin Escalante MD [address]20 [facility] [address] [place] [address] documented as of this encounter Visit Diagnoses Diagnosis History of prior with small for gestational age - Primary documented in this encounter Additional Health Concerns Assessment Noted Time PHQ-2 Depression Total Score: 2 05/28/19 25 4:39 PM EDT documented as of this encounter Care Teams Active Directory Specialist Relationship Specialty Start Date End Date Norma Friedman APRN [address] [place] [address] [place] [address] PCP - General Family Medicine 05/14/24 documented as of this encounter
--- OUTSIDE RECORDS SUMMARY | 2024-07-22 09:10 | XMS_ITS | Encounter Summary ---
[facility] Address [address] [place] [id number] Care Team Providers Care Otr Refrigerated Cdl Truck Driver Name Role Phone Norma Friedman APRN Primary Care Provider + [phone] Reason for Referral * Consultation (Routine) - Closed Specialty Diagnoses / Procedures Referred By Contac t Referred To Contact Nephrology Diagnoses History of proteinuria syndrome Procedures [place] OFFICE/OUTPATIENT NEW MODERATE MDM 45 MINUTES Staci Jain MD [address] [place] [address] Phone: tel: fax: [place] [address] Phone: tel: Referral ID Status Reason Start Date Expiration Date V isits Requested Visits Authorized [id number] Closed Specialty Services Required 07/22/2024 10/21/2025 1 1 Reason for Visit * Reason Comments Routine Visit * Diagnostic Imaging (Routine) - Closed Specialty Diagnoses / Procedures Referred By Contact Referred To Contact Obstetrics and Gynecology Diagnoses care, subsequent , second trimester Procedures US Ob 14 + Weeks Single or First Gestation Koby Roberts MD [address] [facility] [address] [place] [address] Phone: tel: fax: [facility] OBGYN [address] [place] [address] Phone: tel: fax: Referral ID Status Reason Start Date Expiration Date Visits Re quested Visits Authorized [id number] Closed 06/11/2024 09/10/2025 1 1 Encounter Details Date Type Department Care Team (Late st Contact Info) Description 07/22/2024 9:10 AM EDT Routine [facility] OBGYN [address] [phone] Staci Jain MD [address] [address] [place]: 21w1d Social History Tobacco Use Types Packs/Day Years Used Date Smoking Tobacco: Never Smokeless Tobacco: Never Alcohol Use Standard Drinks/Week Comments Never 0 (1 standard drink = 0.6 oz pur e alcohol) [facility] Utilities Answer Date Recorded In the past 12 months has [employer], gas, oil, or water [employer] threatened to shut off services in your [...] heating? Not hard at all 05/28/2024 [facility] [place] of Occupat ional Health - Occupational Stress [...] Comme nts Yes 12/01/2024 Based on last ut nstrual period of 02/25/2024 Sex and Gender [...] IUGR. Unknown reasons. Has not seen a economic forecaster This is my first time seeing patient. Transferred care. Will want to be seen in [facility]. Her care is complicated by (and status) [...] about 4 weeks (around 08/19/2024) for in [place]. Staci Jain MD 07/22/2024 documented in this encounter Plan of Treatment Upcoming Encounters Date Type Department Care Team (Late st Contact Info) Description 01/20/2025 3:30 PM EST Office Visit [facility] GASTROENTEROLOGY [address] [address] Robbin Escalante MD [address] [facility] [address] Scheduled Orders Name Type Priority Associated Diagnoses [...] AM EDT) Glucose, UA Negative Negative mg/dL [facility] Protein, POC 1+(A) Negative mg/dL [facility] Urine 07/22/2024 10:0 2 AM EDT Staci Jain MD POINT OF CARE TEST OR DERABLES Final Result [facility]
[address] [place] [address], documented in this encounter Visit Diagnoses Diagnosis Multigravida in second trimester- Primary care, subsequent , second trimester History of proteinuria syndrome History of Other postprocedural status documented in this encounter Additional Health Concerns Assessment Noted Time PHQ-2 Depression Total Score: 2 05/28/19 25 4:39 PM EDT documented as of this encounter Care Teams Otr Refrigerated Cdl Truck Driver Relationship Specialty Start Date End Date Norma Friedman APRN [address] [place] [address] RAFAELA APPIAH [id number] PCP - General Family Medicine 05/14/24 documented as of this encounter
--- OUTSIDE RECORDS SUMMARY | 2024-08-19 10:15 | XMS_ITS | Encounter Summary ---
Author Organization [facility] Address [address] [place] [id number] Care Team Providers Care Parts Inspector Name Role Phone Norma Friedman APRN Primary Care Provider + [phone] Reason for Visit * Reason Comments Routine Visit Encounter Details Date Type Department Care Team (Late st Contact Info) Description 08/19/2024 10:15 AM EDT Routine [facility] OBGYN [address] [place] [address] Jacey Mathews, ACUTE CARE SURGEON [address] [place] [address] GA: 25w1d Social History Tobacco Use Types Packs/Day Years Used Date Smoking Tobacco: Never Smokeless Tobacco: Never Alcohol Use Standard Drinks/Week Comments Never 0 (1 standard drink = 0.6 oz pur e alcohol) [facility] Utilities Answer Date Recorded In the past 12 months has [employer], gas, oil, or water [employer] threatened to shut off services in your [...] and heating? Not hard at all 05/28/2024 [facility] [place] [facility] Health - Occupational Stress Questionnaire Answer Date [...] GED or equivalent No 05/28/2024 Preferred Language Salvadorean 05/28/2024 PHQ-2 Answer Date Recorded Patient Health [...] this encounter Progress Notes * Jacey Mathews, ACUTE CARE SURGEON - 08/19/2024 10:15 AM EDT Images from [...] [facility] GASTROENTEROLOGY [address] [facility] [address] [place] [address] Robbin Escalante MD [address] [facility] [address] [place] [address] documented as of this encounter Visit Diagnoses Diagnosis Vaginal bleeding in - Primary 25 weeks gestation of documented in this encounter Additional Health Concerns Assessment Noted Time PHQ-2 Depression Total Score: 2 05/28/19 25 4:39 PM EDT documented as of this encounter Care Teams Parts Inspector Relationship Specialty Start Date End Date Norma Friedman APRN [address] [place] [address] [place] [id number] PCP - General Family Medicine 05/14/24 documented as of this encounter
--- OUTSIDE RECORDS SUMMARY | 2024-08-19 13:59 | XMS_ITS | Encounter Summary ---
[facility] Address [address] [place] [id number] Care Team Providers Care Recreation Aide Name Role Phone Ivyashlyn Norma FERNÁNDEZ Primary Care Provider + [phone] Reason for Visit * Reason Comments Vaginal Bleeding * Auth/Cert (Routine) Specialty Diagnoses / Procedures Referred By Contleyla t Referred To Contact Referral ID Status Reason Start Date Expiration Date Visits Re quested Visits Authorized [id number] 1 1 Encounter Details Date Type Department Care Team (Late st Contact Info) Description 08/19/2024 1:59 PM EDT - 08/20/2024 4:28 PM EDT Hospital Encounter [facility] [address] [place] [phone] Rob Wharton MD [address] [facility] [address] [place] [address] Blu Alvarado MD [address] [facility] [address] [place] [address] Dysphagia, unspecified type (Primary Dx) Discharge Disposition: Home or Self Care Social History Tobacco Use Types Packs/Day Years Used Date Smoking Tobacco: Never Smokeless Tobacco: Never Alcohol Use Standard Drinks/Week Comments Never 0 (1 standard drink = 0.6 oz pur e alcohol) [facility] Utilities Answer Date Recorded In the past 12 months has [employer], gas, oil, or water [employer] threatened to shut off services in your [...] and heating? Not hard at all 05/28/2024 [facility] [place] of Occupat ional Health - Occupational Stress [...] GED or equivalent No 05/28/2024 Preferred Language Malawian 05/28/2024 PHQ-2 Answer Date Recorded Patient Health [...] 1:23 PM EDT Polly Lacey RN * [place] Suicide Severity Rating Scale (Screener/Recent Self-Report) Question [...] Labs beginning of week and f/u with ms Seng Test Results Pending at Discharge Pending Labs Order Current Status Tissue Pathology Exam In process Rob Wharton MD 08/20/24 15:36 EDT Time: Discharge <30 min documented in this encounter Discharge Instructions * Attachments The following attachments cannot be sent through Care Everywhere. * Second Trimester of (Malawian) * Upper Endoscopy Adult Care After (Malawian) documented in this encounter Medications at Time [...] 08/19/2024 RH Positive 08/19/2024 ABSCRN Negative 08/19/2024 [id number] non-reactive 04/12/2024 HEPCVIRUSABY negative 04/12/2024 URINECX Final [...] IUPC: Resting Tone: Resting Tone by IUPC: [place] Units: Cervix: Exam by: Method: sterile vaginal [...] from the original note were not included. [facility] Obstetric History and Physical Referring Provider: [...] her third trimesters prior pregnancies(etiology unknown). 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 She states has never had a EGD [...] IUPC: Resting Tone: Resting Tone by IUPC: [place] Units: Laboratory Results: Lab Results (last 24 [...] AM EDTAssociated Order(s): IP CONSULT TO GASTROENTEROLOGY [facility] Gastroenterology Consult Referring Provider: Dr. Fan/Dr. Wharton [...] expresses concern regarding recent CT scan at [facility] revealing a hiatal hernia. CT scan done prior to most recent due to ovarian cyst and incidentally revealed hiatal hernia. She reports chronic gastrointestinal symptoms. Review of medical record revealed prior GI referral due to blood per rectum. She reports colonoscopy in 2020 at outside facility that revealed diverticulosis and benign colon polyp. She is currently established with provider at [facility] for gastroenterology care she reports repeat [...] , await recommendations following EGD - consider FLEET SERVICE CLERK evaluation if no etiology for difficulty swallowing [...] from the original note were not included. [facility] Obstetric History and Physical Referring Provider: [...] her third trimesters prior pregnancies(etiology unknown). 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 She states has never had a EGD [...] IUPC: Resting Tone: Resting Tone by IUPC: [place] Units: Laboratory Results: Lab Results (last 24 [...] Visit [facility] [address] [facility] [facility] [address] [phone] Robbin Escalante MD [address] [facility] [address] [address] documented as of this encounter Procedures Procedure Name Priority Date/Time Associated Diagnosis Comments TISSUE PATHOLOGY EXAM Routine 08/20/2024 1:55 PM EDT Dysphagia, unspecified type MN ESOPHAGOGASTRODUODENOSCOP Y TRANSORAL DIAGNOSTIC 08/20/2024 1:44 PM EDT Dysphagia, unspecified type UPPER GI ENDOSCOPY 08/20/2024 1:09 PM EDT BASIC METABOLIC PANEL STAT 08/20/2024 5:25 AM EDT POTASSIUM STAT 08/19/2024 8:53 PM EDT ABORH 2ND SPECIMEN VERIFICATION STAT 08/19/2024 4:34 PM EDT NONSTRESS TEST Routine 08/19/2024 4:17 PM EDT [facility] Routine 08/19/2024 3:25 PM EDT [...] EDT) Case Report Surgical Pathology Report Case: [id number] Authorizing Provider: Blu Alvarado MD Collected: 08/20/2024 01:55 PM Ordering Location: [facility] Received: 08/20/2024 02:14 PM ENDO SUITES Pathologist: Khalida Rhoades DO Specimen: Gastric, Antrum, antrum bx for path 08/22/2024 9:18 AM EDT [facility] Clinical Information Dysphagia, unspecified type 08/22/2024 9:18 AM EDT [facility] Final Diagnosis Stomach, antrum, biopsy: 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 pylori is negative (no organisms are identified) Negative for intestinal metaplasia, dysplasia, or malignancy 08/22/2024 9:18 AM EDT [facility] at 0918 EDT Gross Description 1. Gastric, Antrum. Received in formalin labeled antrum biopsy is a 0.4 x 0.2 x 0.2 cm pink-see soft tissue fragment submitted entirely in a single cassette. HDM 08/22/2024 9:18 AM EDT [facility] Microscopic Description The slides are reviewed and demonstrate histopathologic features supporting the above rendered diagnosis. 08/22/2024 9:18 AM EDT [facility] Tissue Pyloric antrum structure / Unknown 08/20/2024 1:55 PM EDT 08/20/2024 2:14 PM EDT us Blu Alvarado MD PATHOLOGY/CYTOLOGY ORDERABLES Final Result [facility]
[address] [place] [address], * Upper GI Endoscopy (08/20/2024 1:09 PM EDT) us Blu Alvarado MD INTERFACE NEEDS Final Result * (ABNORMAL) Basic Metabolic Panel (08/20/2024 5:25 AM EDT) Glucose 84 65 - 99 mg/dL 08/20/2024 6:13 AM EDT [facility] BUN 2.3(L) 6.0 - 20.0 mg/dL 08/20/2024 6:13 AM EDT [facility] Creatinine 0.51(L) 0.57 - 1.00 mg/dL 08/20/2024 6:13 AM EDT [facility] Sodium 139 136 - 145 mmol/L 08/20/2024 6:13 AM EDT [facility] Potassium 3.5 3.5 - 5.2 mmol/L 08/20/2024 6:13 AM EDT [facility] Chloride 109(H) 98 - 107 mmol/L 08/20/2024 6:13 AM EDT [facility] CO2 23.5 22.0 - 29.0 mmol/L 08/20/2024 6:13 AM EDT [facility] Calcium 7.8(L) 8.6 - 10.5 mg/dL 08/20/2024 6:13 AM EDT [facility] BUN/Creatinine Ratio 4.5(L) 7.0 - 25.0 08/20/2024 6:13 AM EDT [facility] Anion Gap 6.5 5.0 - 15.0 mmol/L 08/20/2024 6:13 AM T [facility] eGFR 126.6 >60.0 mL/min/1.7 3 08/20/2024 6:13 AM T [facility] Blood Venipuncture / Unknown 08/20/2024 5:25 AM EDT 08/20/2024 5:46 AM EDT [facility] - 08/20/2024 6:13 AM EDT GFR [...] ORDERABLES Final Resu lt Performing Organization Address City/[facility]/ZIP Co de Phone Number [facility]
[address] [place] [address], * (ABNORMAL) Potassium (08/19/2024 8:53 PM EDT) Potassium 2.7(L) 3.5 - 5.2 mmol/L 08/19/2024 9:20 PM EDT [facility] Blood Venipuncture / Unknown 08/19/2024 8:53 PM EDT 08/19/2024 9:04 PM EDT Kt Fan DO LAB BLOOD ORDERABLES Final Result Performing Organization Address [facility] Co de Phone Number [facility]
[address] [place] [address], * ABO RH Specimen Verification (08/19/2024 4:34 PM EDT) ABO Type O 08/19/2024 7:39 PM EDT [facility] RH type Positive 08/19/2024 7:39 PM EDT [facility] Blood Venipuncture / Unknown 08/19/2024 4:34 PM EDT 08/19/2024 4:53 PM EDT Rob Wharton MD BLOOD BANK TEST ORDER FRANCO Final Result Performing Organization Address City/[facility]/ZIP Co de Phone Number [facility]
[address] [place] [address], * [facility] (08/19/2024 3:25 PM EDT) Anatomical Region Laterality Modality Ultrasound 08/19/2024 3:09 PM EDT Narrative 08/19/2024 4:54 PM EDT PAT NAME: CAROLE GIRARD MED REC#: [id number] DA: 1990 PAT GEND: F PAT TYPE: E EXAM TRAVIS: [id number] REF PHYS ROB WHARTON Comparison Studies The [...] EFW (oz) 9 oz EFW by: Hadlock ([id number]) Extended Cav. septi pel. tr 4.7 mm Mess Attendant 3.8 mm CM 7.5 mm 84% Nicolaides [...] Heart / Thorax 3-vessel view: Appears normal 5-vhyhdp-qgrgebg view: Appears normal Stomach: Appears normal Kidneys: [...] in 4wks for growth. Coding ======= Description: 48880-83 Follow Up Center Director Lead Teacher: RT Annetta Hartmann , [facility] Physician: Jo Chappell MD Electronically signed by: Jo Chappell MD at: 16:54 Procedure Note Jo Chappell MD - 08/19/2024 PAT NAME: CAROLE GIRARD MED REC#: [id number] DA: 1990 PAT GEND: F PAT TYPE: E EXAM TRAVIS: [id number] REF PHYS ROB WHARTON Comparison Studies The findings of this study are compared to the prior ultrasound studydated 07/22/24 Patient Status Inpatient Indication ======== History of c/s x1. History of . Vaginal bleeding. Maternal Assessment Eoqzlf012 cm Height (ft)5 ft Height (in)4 in Fjonoh14 kg Weight (lb)158 lb BMI27.31 kg/m Method ======= Transabdominal ultrasound examination. View: Limited by patient bodyhabitus ========= Love . Number of fetuses: 1 Dating ====== Method of dating:based on stated DUSTY GA by prior [id number] w + 1 d DUSTY by prior assessment:12/01/2024 Ultrasound examination on:08/19/2024 GA by U/S based upon:AC, BPD, Femur, HC GA by U/S24 w + 2 d DUSTY by U/S:12/07/2024 Previous dating:based on stated DUSTY, selected on 07/22/2024 Agreed DUSTY of previous datin12/01/2024 Assigned:based on stated DUSTY, selected on 08/19/2024 Assigned GA25 w + 1 d Assigned DUSTY:12/01/2024 [id number] d Biometry Standard BPD57.6 mm 23w 4d 5% Hadlock OFD81.6 mm 26w 4d 88% Jamal HC225.7 mm 24w 4d 13% Hadlock Cerebellum tr28.9 mm 25w 2d 62% Hill AC194.9 mm 24w 1d 15% Hadlock Femur44.9 mm 24w 6d 27% Hadlock Nnjdaaw41.3 mm 25w 3d 50% Jamal HC / AC1.16 BFQ621 g 24w 2d 16% Hadlock EFW (lb)1 lb EFW (oz)9 oz EFW by:Hadlock ([id number]) Extended Cav. septi pel. tr4.7 mm Vp3.8 mm CM7.5 mm 84% Nicolaides Head / Face / Neck Cephalic index0.71 <1% Nicolaides Extremities / Bony Struc FL / BPD0.78 FL / HC0.20 FL / AC0.23 Other Structures DSE193 bpm General Evaluation Cardiac activity present. FHR [...] normal Heart / Thorax 3-vessel view:Appears normal 7-jmvlcc-cglnbvi view:Appears normal Stomach:Appears normal Kidneys:Appears normal Bladder:Appears normal Gender:female Wants to know gender:yes Maternal Structures Uterus / Cervix Cervix:Visualized Approach:Transabdominal Cervical nlcyta14.9 mm Doppler Arterial Umbilical A PI1.01 32% [...] office in 4wks for growth. Coding ======= Description:73062-77 Follow Up Center Director Lead Teacher: RT Annetta Hartmann , RDMS Physician: Jo Chappell MD Electronically signed by: Jo Chappell MD at: 16:54 us Kt Fan DO G US ORDERABLES Final Res ult * Protein / Creatinine Ratio, Urine - Urine, Clean Catch (08/19/2024 3:02 PM EDT) Protein/Creati nine Ratio, Urine 126.1 0.0 - 200.0 mg/G Crea 08/20/2024 12:47 AM EDT [facility] Creatinine, Urine 148.3 mg/dL 08/20/2024 12:47 AM EDT [facility] Total Protein, Urine 18.7 mg/dL 08/20/2024 12:47 AM EDT [facility] Urine Urine specimen obtained by clean catch procedure / Unknown Collection / Unknown 08/19/2024 3:02 PM EDT 08/19/2024 4:26 PM EDT Kt Fan URINE ORDERABLES Final Resu lt [facility]
[address] [place] [address], [place] [phone] * (ABNORMAL) Magnesium (08/19/2024 3:02 PM EDT) Magnesium 1.5(L) 1.6 - 2.6 mg/dL 08/19/2024 5:12 PM EDT [facility] Blood Line / Unknown 08/19/2024 3: 02 PM EDT 08/19/2024 3:10 PM EDT Kt Fan DO LAB BLOOD ORDERABLES Final Result [facility]
[address] [place] [address], [place] [phone] * Urinalysis, Microscopic Only - Urine, Clean Catch (08/19/2024 3:02 PM EDT) RBC, UA 0-2 None Seen, 0-2 /HPF 08/19/2024 3:33 PM EDT [facility] WBC, UA 0-2 None Seen, 0-2 /HPF 08/19/2024 3:33 PM EDT [facility] Bacteria, UA None Seen None Seen /HPF 08/19/2024 3:33 PM EDT [facility] Squamous Epithelial Cells, UA 0-2 None Seen, 0-2 /HPF 08/19/2024 3:33 PM EDT [facility] Hyaline Casts, UA None Seen None Seen /LPF 08/19/2024 3:33 PM EDT [facility] Methodology Automated Microscopy 08/19/2024 3:33 PM EDT [facility] Urine Urine specimen obtained by clean catch procedure / Unknown Collection / Unknown 08/19/2024 3:02 PM EDT 08/19/2024 3:13 PM EDT us Kt Fan DO URINE ORDERABLES Final Resu lt [facility]
[address] [place] [address], * (ABNORMAL) CBC Auto Differential (08/19/2024 3:02 PM EDT) WBC 9.19 3.40 - 10.80 10*3/mm3 08/19/2024 3:23 PM EDT [facility] RBC 3.58(L) 3.77 - 5.28 10*6/mm3 08/19/2024 3:23 PM EDT [facility] Hemoglobin 10.5(L) 12.0 - 15.9 g/dL 08/19/2024 3:23 PM EDT [facility] Hematocrit 31.4(L) 34.0 - 46.6 % 08/19/2024 3:23 PM EDT [facility] MCV 87.7 79.0 - 97.0 fL 08/19/2024 3:23 PM EDT [facility] MCH 29.3 26.6 - 33.0 pg 08/19/2024 3:23 PM EDT [facility] MCHC 33.4 31.5 - 35.7 g/dL 08/19/2024 3:23 PM EDT [facility] RDW 13.4 12.3 - 15.4 % 08/19/2024 3:23 PM EDT [facility] RDW-SD 42.4 37.0 - 54.0 fl 08/19/2024 3:23 PM EDT [facility] MPV 12.0 6.0 - 12.0 fL 08/19/2024 3:23 PM EDT [facility] Platelets 241 140 - 450 10*3/mm3 08/19/2024 3:23 PM EDT [facility] Neutrophil % 66.8 42.7 - 76.0 % 08/19/2024 3:23 PM EDT [facility] Lymphocyte % 24.4 19.6 - 45.3 % 08/19/2024 3:23 [facility] Monocyte % 7.6 5.0 - 12.0 % 08/19/2024 3:23 PM [facility] Eosinophil % 0.7 0.3 - 6.2 % 08/19/2024 3:23 PM [facility] Basophil % 0.2 0.0 - 1.5 % 08/19/2024 3:23 PM [facility] Immature Grans % 0.3 0.0 - 0.5 % 08/19/2024 3:23 PM [facility] Neutrophils, Absolute 6.14 1.70 - 7.00 10*3/mm3 08/19/2024 3:23 PM [facility] Lymphocytes, Absolute 2.24 0.70 - 3.10 10*3/mm3 08/19/2024 3:23 PM EDT [facility] Monocytes, Absolute 0.70 0.10 - 0.90 10*3/mm3 08/19/2024 3:23 PM EDT [facility] Eosinophils, Absolute 0.06 0.00 - 0.40 10*3/mm3 08/19/2024 3:23 PM [facility] Basophils, Absolute 0.02 0.00 - 0.20 10*3/mm3 08/19/2024 3:23 PM EDT [facility] Immature Grans, Absolute 0.03 0.00 - 0.05 10*3/mm3 08/19/2024 3:23 PM EDT [facility] nRBC 0.0 0.0 - 0.2 /100 WBC 08/19/2024 3:23 PM EDT [facility] Blood Line / Unknown 08/19/2024 3: 02 PM EDT 08/19/2024 3:10 PM EDT Kt Fan DO LAB BLOOD ORDERABLES Final Result [facility]
[address] [place] [address], * (ABNORMAL) Urinalysis With Microscopic If Indicated (No Culture) - Urine, Clean Catch (08/19/2024 3:02 PM EDT) Color, UA Yellow Yellow, Straw 08/19/2024 3:33 PM EDT [facility] Appearance, UA Clear Clear 08/19/2024 3:33 PM EDT [facility] pH, UA >=9.0(H) 5.0 - 8.0 08/19/2024 3:33 PM EDT [facility] Specific [place], UA 1.018 1.005 - 1.030 08/19/2024 3:33 PM EDT [facility] Glucose, UA Negative Negative 08/19/2024 3:33 PM EDT [facility] Ketones, UA 15 mg/dL (1+)(A) Negative 08/19/2024 3:33 PM EDT [facility] Bilirubin, UA Negative Negative 08/19/2024 3:33 PM EDT [facility] Blood, UA Negative Negative 08/19/2024 3:33 PM EDT [facility] Protein, UA 30 mg/dL (1+)(A) Negative 08/19/2024 3:33 PM EDT [facility] Leuk Esterase, UA Negative Negative 08/19/2024 3:33 PM EDT [facility] Nitrite, UA Negative Negative 08/19/2024 3:33 PM EDT [facility] Urobilinogen, UA 1.0 E.U./dL 0.2 - 1.0 E.U./dL 08/19/2024 3:33 PM EDT [facility] Urine Urine specimen obtained by clean catch procedure / Unknown Collection / Unknown 08/19/2024 3:02 PM EDT 08/19/2024 3:13 PM EDT us Kt Fan DO URINE ORDERABLES Final Resu lt Performing Organization Address City/[facility]/ZIP Co de Phone Number [facility]
[address] [place] [address], [place] [phone] * Amylase (08/19/2024 3:02 PM EDT) Amylase 73 28 - 100 U/L 08/19/2024 3:36 PM EDT [facility] Blood Line / Unknown 08/19/2024 3: 02 PM EDT 08/19/2024 3:10 PM EDT us Kt Fan DO LAB BLOOD ORDERABLES Final Result Performing Organization Address [facility] Co de Phone Number [facility]
[address] [place] [address], [place] [phone] * Lipase (08/19/2024 3:02 PM EDT) Lipase 13 13 - 60 U/L 08/19/2024 3:36 PM EDT [facility] Blood Line / Unknown 08/19/2024 3: 02 PM EDT 08/19/2024 3:10 PM EDT us Kt Fan DO LAB BLOOD ORDERABLES Final Result Performing Organization Address City/[facility]/ZIP Co de Phone Number [facility]
[address] [place] [address], * (ABNORMAL) Comprehensive Metabolic Panel (08/19/2024 3:02 PM EDT) [facility] Glucose 75 65 - 99 mg/dL 08/19/2024 3:38 PM EDT [facility] BUN 3.6(L) 6.0 - 20.0 mg/dL 08/19/2024 3:38 PM EDT [facility] Creatinine 0.51(L) 0.57 - 1.00 mg/dL 08/19/2024 3:38 PM EDT [facility] Sodium 137 136 - 145 mmol/L 08/19/2024 3:38 PM EDT [facility] Potassium 2.6(LL) 3.5 - 5.2 mmol/L 08/19/2024 3:38 PM EDT [facility] Comment:Specimen hemolyzed. Result may be falsely elevated. Chloride 99 98 - 107 mmol/L 08/19/2024 3:38 PM EDT [facility] CO2 24.2 22.0 - 29.0 mmol/L 08/19/2024 3:38 PM EDT [facility] Calcium 8.8 8.6 - 10.5 mg/dL 08/19/2024 3:38 PM EDT [facility] Total Protein 6.6 6.0 - 8.5 g/dL 08/19/2024 3:38 PM EDT [facility] Albumin 3.4(L) 3.5 - 5.2 g/dL 08/19/2024 3:38 PM EDT [facility] ALT (SGPT) 10 1 - 33 U/L 08/19/2024 3:38 PM EDT [facility] AST (SGOT) 22 1 - 32 U/L 08/19/2024 3:38 PM EDT [facility] Alkaline Phosphatase 64 39 - 117 U/L 08/19/2024 3:38 PM EDT [facility] Total Bilirubin 0.5 0.0 - 1.2 mg/dL 08/19/2024 3:38 PM EDT [facility] Globulin 3.2 gm/dL 08/19/2024 3:38 PM EDT [facility] Comment:Calculated Result A/G Ratio 1.1 g/dL 08/19/2024 3:38 PM EDT [facility] BUN/Creatinine Ratio 7.1 7.0 - 25.0 08/19/2024 3:38 PM EDT [facility] Anion Gap 13.8 5.0 - 15.0 mmol/L 08/19/2024 3:38 PM EDT [facility] eGFR 126.6 >60.0 mL/min/1.7 3 08/19/2024 3:38 PM EDT [facility] Blood Line / Unknown 08/19/2024 3: 02 PM EDT 08/19/2024 3:10 PM EDT Narrative [facility] - 08/19/2024 3:38 PM EDT [...] Fan DO LAB BLOOD ORDERABLES Final Result [facility]
[address] [place] [address], * Type & Screen (08/19/2024 3:02 PM EDT) ABO Type O 08/19/2024 3:51 PM EDT [facility] RH type Positive 08/19/2024 3:51 PM EDT [facility] Antibody Screen Negative 08/19/2024 3:51 PM EDT [facility] T&S Expiration Date 08/22/2024 11:59:59 PM 08/19/2024 3:51 PM EDT [facility] Blood Line / Unknown 08/19/2024 3: 02 PM EDT 08/19/2024 3:15 PM EDT Kt Fan DO BLOOD BANK TEST ORDERABLES Edited Result - Final [facility]
[address] [place] [address], documented in this encounter Visit Diagnoses Diagnosis [...] documented as of this encounter Care Teams Recreation Aide Relationship Specialty Start Date End Date Norma Friedman APRN [address] [place] G3 RAFAELA APPIAH [id number] PCP - General Family Medicine 05/14/24 documented as of this encounter
--- OUTSIDE RECORDS SUMMARY | 2024-08-20 13:33 | XMS_ITS | Encounter Summary ---
[facility] Address [address] [place] [id number] Care Team Providers Care Veterinary Milk Specialist Name Role Phone Norma Friedman APRN Primary Care Provider + [phone] Reason for Visit * Reason Comments Vaginal Bleeding * Auth/Cert (Routine) Specialty Diagnoses / Procedures Referred By Tarik t Referred To Contact Referral ID Status Reason Start Date Expiration Date Visits Re quested Visits Authorized [id number] 1 1 Encounter Details Date Type Department Care Team (Late st Contact Info) Description 08/20/2024 1:33 PM EDT - 08/20/2024 2:05 PM EDT Surgery [facility] END[facility] SUITES [address] [place] [address] Blu Alvarado MD [address] [facility] [address] [place] [address] ESOPHAGOGASTRODUODENOSCOPY [34861 (CPT )] Social History Tobacco Use Types Packs/Day Years Used Date Smoking Tobacco: Never Smokeless Tobacco: Never Alcohol Use Standard Drinks/Week Comments Never 0 (1 standard drink = 0.6 oz pur e alcohol) [facility] Utilities Answer Date Recorded In [...] and heating? Not hard at all 05/28/2024 [facility] - Occupational Stress Questionnaire Answer Date [...] GED or equivalent No 05/28/2024 Preferred Language Gambian 05/28/2024 PHQ-2 Answer Date Recorded Patient Health [...] 1:23 PM EDT Polly Lacey RN * [place] Suicide Severity Rating Scale (Screener/Recent Self-Report) Question [...] [facility] Pending at Discharge Pending Labs Order Current Status Tissue Pathology Exam In process Rob Wharton MD 08/20/24 15:36 EDT Time: Discharge <30 min documented in this encounter Discharge Instructions * Attachments The following attachments cannot be sent through Care Everywhere. * Second Trimester of (Gambian) * Upper Endoscopy Adult Care After (Gambian) documented in this encounter Medications at Time [...] 08/19/2024 RH Positive 08/19/2024 ABSCRN Negative 08/19/2024 [id number] non-reactive 04/12/2024 HEPCVIRUSABY negative 04/12/2024 URINECX Final [...] IUPC: Resting Tone: Resting Tone by IUPC: [place] Units: Cervix: Exam by: Method: sterile vaginal exam performed, sterile speculum exam performed (per Dr. Fna) Dilation: Effacement: Station: Most recent ultrasound: Normal [...] from the original note were not included. [facility] Obstetric History and Physical Referring [...] her third trimesters prior pregnancies(etiology unknown). 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 [...] IUPC: Resting Tone: Resting Tone by IUPC: [place] Units: Laboratory Results: Lab Results (last 24 [...] EDTAssociated Order(s): IP CONSULT TO GASTROENTEROLOGY [facility] Gastroenterology Consult [...] regarding recent CT scan at [facility] revealing a hiatal hernia. CT scan done prior to most recent due to ovarian cyst and incidentally revealed hiatal hernia. She reports chronic gastrointestinal symptoms. Review of medical record revealed prior GI referral due to blood per rectum. She reports colonoscopy in 2020 at outside facility that revealed diverticulosis and benign colon polyp. She is currently established with provider at [facility] for gastroenterology care she reports repeat [...] , await recommendations following EGD - consider RANCH MANAGER evaluation if no etiology for difficulty swallowing [...] from the original note were not included. [facility] Obstetric History and Physical Referring [...] her third trimesters prior pregnancies(etiology unknown). 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 [...] IUPC: Resting Tone: Resting Tone by IUPC: [place] Units: Laboratory Results: Lab Results (last 24 [...] Description 01/20/2025 3:30 PM EST Office Visit [facility] GASTROENTEROLOGY [address] [phone] Robbin Escalante MD [address] [address] documented as of this encounter Procedures Procedure Name Priority Date/Time Associated Diagnosis Comments TISSUE PATHOLOGY EXAM Routine 08/20/2024 1:55 PM EDT Dysphagia, unspecified type IA ESOPHAGOGASTRODUODENOSCOP Y TRANSORAL DIAGNOSTIC 08/20/2024 1:44 PM EDT Dysphagia, unspecified type UPPER GI ENDOSCOPY 08/20/2024 1:09 PM EDT BASIC METABOLIC PANEL STAT 08/20/2024 5:25 AM EDT POTASSIUM STAT 08/19/2024 8:53 PM EDT ABORH 2ND SPECIMEN VERIFICATION STAT 08/19/2024 4:34 PM EDT NONSTRESS TEST Routine 08/19/2024 4:17 PM EDT [facility] Routine 08/19/2024 3:25 [...] EDT) Case Report Surgical Pathology Report Case: [id number] Authorizing Provider: Blu Alvarado MD Collected: 08/20/2024 [...] [facility]
[address] [place] [address], * Upper GI Endoscopy (08/20/2024 1:09 PM [...] 0.57 - 1.00 mg/dL 08/20/2024 6:13 AM [facility] Sodium 139 136 - 145 mmol/L 08/20/2024 6:13 AM EDT [facility] Potassium 3.5 3.5 - 5.2 mmol/L 08/20/2024 6:13 AM EDT [facility] Chloride 109(H) 98 - 107 mmol/L 08/20/2024 6:13 AM [facility] CO2 23.5 22.0 - 29.0 mmol/L 08/20/2024 6:13 AM [facility] Calcium 7.8(L) 8.6 - 10.5 mg/dL 08/20/2024 6:13 AM [facility] BUN/Creatinine Ratio 4.5(L) 7.0 - 25.0 08/20/2024 6:13 AM [facility] Anion Gap 6.5 5.0 - 15.0 mmol/L 08/20/2024 6:13 AM [facility] eGFR 126.6 >60.0 mL/min/1.7 3 08/20/2024 6:13 AM [facility] Blood Venipuncture / Unknown 08/20/2024 5:25 AM EDT 08/20/2024 5:46 AM T [facility] LABORATORY - 08/20/2024 6:13 AM EDT GFR [...] ORDERABLES Final Resu lt Performing Organization Address City/[facility]/ZIP Co de Phone Number [facility]
[address] [place] [address], * (ABNORMAL) Potassium (08/19/2024 8:53 PM EDT) Potassium 2.7(L) 3.5 - 5.2 mmol/L 08/19/2024 9:20 PM EDT [facility] Blood Venipuncture / Unknown 08/19/2024 8:53 PM EDT 08/19/2024 9:04 PM EDT Kt Fan DO LAB BLOOD ORDERABLES Final Result Performing Organization Address [facility] Co de Phone Number [facility]
[address] [place] [address], * ABO RH Specimen Verification (08/19/2024 4:34 [...] ORDER FRANCO Final Result Performing Organization Address City/[facility]/ZIP Co de Phone Number [facility] BB LABORATORY
[address] [place] [address], * [facility] (08/19/2024 3:25 PM EDT) Anatomical Region Laterality Modality Ultrasound 08/19/2024 3:09 PM EDT Narrative 08/19/2024 4:54 PM EDT PAT NAME: CAROLE GIRARD MED REC#: [id number] DA: 1990 PAT GEND: F PAT TYPE: E EXAM TRAVIS: [id number] REF PHYS ROB WHARTON Comparison Studies The [...] EFW (oz) 9 oz EFW by: Hadlock ([id number]) Extended Cav. septi pel. tr 4.7 mm Securities Settlement Processor 3.8 mm CM 7.5 mm 84% Nicolaides [...] Heart / Thorax 3-vessel view: Appears normal 0-pmeuzw-yhqstvk view: Appears normal Stomach: Appears normal Kidneys: [...] in 4wks for growth. Coding ======= Description: [id number] Follow Up Enterprise Resource Analyst: Alison Verduzco RT R , MS Physician: Jo Chappell MD Electronically signed by: Jo Chappell MD at: 16:54 Procedure Note Jo Chappell MD - 08/19/2024 PAT NAME: CAROLE GIRARD MED REC#: [id number] DA: [id number] PAT GEND: F PAT TYPE: E EXAM TRAVIS: [id number] REF PHYS ROB WHARTON Comparison Studies The findings of this study are compared to the prior ultrasound studydated 07/22/24 Patient Status Inpatient Indication ======== History of c/s x1. History of . Vaginal bleeding. Maternal Assessment Qsritm035 cm Height (ft)5 ft Height (in)4 in Cwirvn81 kg Weight (lb)158 lb BMI27.31 kg/m Method ======= Transabdominal ultrasound examination. View: Limited by patient bodyhabitus ========= Love . Number of fetuses: 1 Dating ====== Method of dating:based on stated DUSTY GA by prior axodtopxba31 w + 1 d DUSTY by prior assessment:12/01/2024 Ultrasound examination on:08/19/2024 GA by U/S based upon:AC, BPD, Femur, HC GA by U/S24 w + 2 d DUSTY by U/S:12/07/2024 Previous dating:based on stated DUSTY, selected on 07/22/2024 Agreed DUSTY of previous datin12/01/2024 Assigned:based on stated DUSTY, selected on 08/19/2024 Assigned GA25 w + 1 d Assigned DUSTY:12/01/2024 uviojw533 d Biometry Standard BPD57.6 mm 23w 4d 5% Hadlock OFD81.6 mm 26w 4d 88% Jamal HC225.7 mm 24w 4d 13% Hadlock Cerebellum tr28.9 mm 25w 2d 62% Hill AC194.9 mm 24w 1d 15% Hadlock Femur44.9 mm 24w 6d 27% Hadlock Ahqiqgj89.3 mm 25w 3d 50% Jamal HC / AC1.16 WDA886 g 24w 2d 16% Hadlock EFW (lb)1 lb EFW (oz)9 oz EFW by:Hadlock ([id number]) Extended Cav. septi pel. tr4.7 mm Vp3.8 mm CM7.5 mm 84% Nicolaides Head / Face / Neck Cephalic index0.71 <1% Nicolaides Extremities / Bony Struc FL / BPD0.78 FL / HC0.20 FL / AC0.23 Other Structures VSS665 bpm General Evaluation Cardiac activity present. FHR [...] normal Heart / Thorax 3-vessel view:Appears normal 6-mfthiq-vqwonyo view:Appears normal Stomach:Appears normal Kidneys:Appears normal Bladder:Appears normal Gender:female Wants to know gender:yes Maternal Structures Uterus / Cervix Cervix:Visualized Approach:Transabdominal Cervical osxwdq77.9 mm Doppler Arterial Umbilical A PI1.01 32% [...] office in 4wks for growth. Coding ======= Description:94966-94 Follow Up Enterprise Resource Analyst: RT Annetta Hartmann , [facility] Physician: Jo Chappell MD Electronically signed by: Jo Chappell MD at: 16:54 us Kt Fan DO [facility] US ORDERABLES Final Res ult * Protein / Creatinine Ratio, Urine - Urine, Clean Catch (08/19/2024 3:02 PM EDT) Protein/Creati nine Ratio, Urine 126.1 0.0 - 200.0 mg/G Crea 08/20/2024 12:47 AM EDT [facility] Creatinine, Urine 148.3 mg/dL 08/20/2024 12:47 AM EDT [facility] Total Protein, Urine 18.7 mg/dL 08/20/2024 12:47 AM EDT [facility] Urine Urine specimen obtained by clean catch procedure / Unknown Collection / Unknown 08/19/2024 3:02 PM EDT 08/19/2024 4:26 PM EDT Kt Fan DO URINE ORDERABLES Final Resu lt [facility]
[address] [place] [address], [place] [phone] * (ABNORMAL) Magnesium (08/19/2024 3:02 PM EDT) Magnesium 1.5(L) 1.6 - 2.6 mg/dL 08/19/2024 5:12 PM EDT [facility] Blood Line / Unknown 08/19/2024 3: 02 PM EDT 08/19/2024 3:10 PM EDT Kt Fan DO LAB BLOOD ORDERABLES Final Result Performing Organization Address City/[facility]/ZIP Co de Phone Number [facility]
[address] [place] [address], [place] [phone] * Urinalysis, Microscopic Only - Urine, Clean [...] [facility]
[address] [place] [address], * (ABNORMAL) CBC Auto Differential (08/19/2024 3:02 [...] [facility] Monocyte % 7.6 5.0 - 12.0 % 08/19/2024 3:23 PM EDT [facility] Eosinophil % 0.7 0.3 - 6.2 % 08/19/2024 3:23 PM EDT [facility] Basophil % 0.2 0.0 - 1.5 % 08/19/2024 3:23 PM EDT [facility] Immature Grans % 0.3 0.0 - 0.5 % 08/19/2024 3:23 PM EDT [facility] Neutrophils, Absolute 6.14 1.70 - 7.00 10*3/mm3 08/19/2024 3:23 PM EDT [facility] Lymphocytes, Absolute 2.24 0.70 - 3.10 10*3/mm3 08/19/2024 3:23 PM EDT [facility] Monocytes, Absolute 0.70 0.10 - 0.90 10*3/mm3 08/19/2024 3:23 PM EDT [facility] Eosinophils, Absolute 0.06 0.00 - 0.40 10*3/mm3 08/19/2024 3:23 PM EDT [facility] Basophils, [...] [facility]
[address] [place] [address], * (ABNORMAL) Urinalysis With Microscopic If Indicated [...] [facility] Specific [place], UA 1.018 1.005 - 1.030 08/19/2024 3:33 [...] [facility]
[address] [place] [address], [place] [phone] * Amylase (08/19/2024 3:02 PM EDT) Amylase 73 28 - 100 U/L 08/19/2024 3:36 PM EDT [facility] Blood Line / Unknown 08/19/2024 3: 02 PM EDT 08/19/2024 3:10 PM EDT us Kt Fan DO LAB BLOOD ORDERABLES Final Result Performing Organization Address [facility] Co de Phone Number [facility]
[address] [place] [address], [place] [phone] * Lipase (08/19/2024 3:02 PM EDT) Lipase 13 13 - 60 U/L 08/19/2024 3:36 PM EDT [facility] Blood Line / Unknown 08/19/2024 3: 02 PM EDT 08/19/2024 3:10 PM EDT us Kt Fan DO LAB BLOOD ORDERABLES Final Result Performing Organization Address City/[facility]/ZIP Co de Phone Number [facility]
[address] [place] [address], [place] [phone] * (ABNORMAL) Comprehensive Metabolic Panel (08/19/2024 3:02 PM EDT) Glucose 75 65 - 99 mg/dL 08/19/2024 3:38 PM EDT [facility] BUN 3.6(L) 6.0 - 20.0 mg/dL 08/19/2024 3:38 PM T [facility] Creatinine 0.51(L) 0.57 - 1.00 mg/dL 08/19/2024 3:38 PM EDT [facility] Sodium 137 136 - 145 mmol/L 08/19/2024 3:38 PM T [facility] Potassium 2.6(LL) 3.5 - 5.2 mmol/L 08/19/2024 3:38 PM [facility] Comment:Specimen hemolyzed. Result may be falsely elevated. Chloride 99 98 - 107 mmol/L 08/19/2024 3:38 PM [facility] CO2 24.2 22.0 - 29.0 mmol/L 08/19/2024 3:38 PM T [facility] Calcium 8.8 8.6 - 10.5 mg/dL 08/19/2024 3:38 PM T [facility] Total Protein 6.6 6.0 - 8.5 g/dL 08/19/2024 3:38 PM [facility] Albumin 3.4(L) 3.5 - 5.2 g/dL 08/19/2024 3:38 PM [facility] ALT (SGPT) 10 1 - 33 U/L 08/19/2024 3:38 PM T [facility] AST (SGOT) 22 1 - 32 U/L 08/19/2024 3:38 PM T [facility] Alkaline Phosphatase 64 39 - 117 U/L 08/19/2024 3:38 PM [facility] Total Bilirubin 0.5 0.0 - 1.2 mg/dL 08/19/2024 3:38 PM T [facility] Globulin 3.2 gm/dL 08/19/2024 3:38 PM T [facility] [...] 02 PM EDT 08/19/2024 3:10 PM EDT [facility] LABORATORY - 08/19/2024 3:38 PM EDT GFR [...] [facility]
[address] [place] [address], * Type & Screen (08/19/2024 3:02 PM [...] [facility]
[address] [place] [address], documented in this encounter Visit Diagnoses Diagnosis [...] BPA Driven Protocol Open Order & [facility] Electrolyte Replacement Protocol Algorithm to [...] documented as of this encounter Care Teams Veterinary Milk Specialist Relationship Specialty Start Date End Date Norma Friedman APRN [address] [place] G3 RAFAELA APPIAH [address] PCP - General Family Medicine 05/14/24 documented as of this encounter
--- OUTSIDE RECORDS SUMMARY | 2024-08-20 13:44 | XMS_ITS | Encounter Summary ---
[facility] Address [address] [place] [phone] Care Team Providers Care Guest Relations Agent Name Role Phone IvyKade goldbergdev FERNÁNDEZ Primary Care Provider + [phone] Reason for Visit * Auth/Cert (Routine) Specialty Diagnoses / Procedures Referred By Contac t Referred To Contact Referral ID Status Reason Start Date Expiration Date Visits Re quested Visits Authorized 1 1 Encounter Details Date Type Department Care Team (Late st Contact Info) Description 08/20/2024 1:44 PM EDT Anesthesia Event [facility] ENDO SUITES [address] [place] [address] Akash Anguiano MD [address] [place] [address] Liborio Peralta CRNA [address] [place] [address] Anesthesia Record Procedure Summary Procedure Name Responsible [...] and heating? Not hard at all 05/28/2024 [facility] [place] of Occupat ional Health - Occupational Stress [...] 1:23 PM EDT Polly Lacey RN * [place] Suicide Severity Rating Scale (Screener/Recent Self-Report) Question [...] sounds: normal. 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 Plan discussed with FISH CUTTER. CODE STATUS: documented in this encounter Plan of Treatment Upcoming Encounters Date Type Department Care Team (Late st Contact Info) Description 01/20/2025 3:30 PM EST Office Visit [facility] GASTROENTEROLOGY [address] [facility] [address] Robbin Escalante MD [address] [address] documented as of this encounter Procedures Procedure [...] and Staff Patient location during procedure: [place] FISH CUTTER/CAA: Junior Zbigniew Jain, DAYNE Indications and Patient [...] documented as of this encounter Care Teams Guest Relations Agent Relationship Specialty Start Date End Date Norma Friedman APRN [address] [place] [address] [place] [address] PCP - General Family Medicine 05/14/24 documented as of this encounter
--- OUTSIDE RECORDS SUMMARY | 2024-08-29 10:00 | XMS_ITS | Encounter Summary ---
[facility] Organization [facility] Address [address] [place] [address] Care Team Providers Care Pharmacy Order Entry Technician Name Role Phone IvyKade goldbergjoseseven JOLENE Primary Care Provider + [phone] Reason for Visit * Reason Comments Problem Encounter Details Date Type Department Care Team (Late st Contact Info) Description 08/29/2024 10:00 AM EDT Routine [facility] OBGYN [address] [place] [address] Staci Jain MD [address] [place] [address] GA: 26w4d Social History Tobacco Use Types Packs/Day Years Used Date Smoking Tobacco: Never Smokeless Tobacco: Never Alcohol Use Standard Drinks/Week Comments Never 0 (1 standard drink = 0.6 oz pur e alcohol) [facility] Utilities Answer Date Recorded In the past 12 months has [employer], gas, oil, or water [employer] threatened to shut off services in [...] and heating? Not hard at all 05/28/2024 [facility] - Occupational Stress Questionnaire [...] Description 01/20/2025 3:30 PM EST Office Visit [facility] GASTROENTEROLOGY [address] [address] Robbin Escalante MD [address] [address] Scheduled Orders Name Type Priority Associated Diagnoses [...] - 08/30/2024 6:09 AM EDT Performed at: [address] [place] [id number] Sap Technical Developer: Kevin Harman MD, Phone: [phone] Patient Fasting: N us Staci Jain MD LAB BLOOD ORDERABLES Final Result [facility] ([facility]) [address] [place] [address], [place] [phone] [facility] [address] [place] [address], [place] [phone] * (ABNORMAL) Comprehensive Metabolic Panel (08/29/2024 11:05 AM EDT) Pathologist [facility] Glucose 72 65 - 99 mg/dL [facility] [...] - 08/30/2024 6:09 AM EDT Performed at: [address] [place] [id number] Sap Technical Developer: Kevin Harman MD, Phone: [phone] Patient Fasting: N us Staci Jain MD LAB BLOOD ORDERABLES Final Result Performing Organization Address City/[facility]/ZIP Co de Phone Number [facility] ([facility]) [address] [place] [address], [place] [phone] [facility] [address] [place] [address], [place] [phone] * (ABNORMAL) POC Urinalysis Dipstick (08/29/2024 10:13 AM EDT) [facility] Glucose, UA Negative Negative mg/dL [facility] Protein, POC Trace(A) Negative mg/dL [facility] Urine 08/29/2024 10:1 3 AM EDT us Staci Jain MD POINT OF CARE TEST OR DERABLES Final Result [facility]
[address] [place] [address], documented in this encounter Visit Diagnoses Diagnosis [...] documented as of this encounter Care Teams Pharmacy Order Entry Technician Relationship Specialty Start Date End Date Norma Friedman APRN [address] [place] G3 RAFAELA APPIAH [address] PCP - General Family Medicine 05/14/24 documented as of this encounter
--- NOTE | 2024-09-10 15:30 | EXP.HP ---
History of Present Illness *Admission Date: 09/10/24 *Reason for visit:: , vaginal abscess *History of present illness: She is a 34-year-old 9 para 5 aborta 3 who is 28 weeks gestational age. She started having some discomfort last night and today it is exquisitely tender. She has pain along the anterior vaginal wall and says she feels a bulge there. She tried treating it with some yeast cream but it did not help. [facility] Disclaimer: The information contained in this section may have been updated after the patient was seen, as this information can be updated by other users. Medical History Normal esophagogastroduodenoscopy (EGD) Vaginal discharge UTI (urinary tract infection) UTI (urinary tract infection) Subchorionic hematoma Patient left without being seen Vaginal spotting Bilateral ovarian cysts Vulvar lesion Lower abdominal pain Traumatic iritis Corneal abrasion Subconjunctival hemorrhage Bright red blood per rectum Hematemesis Obstipation Irregular bowel habits Dyspepsia Generalized abdominal pain Early satiety Bloating Back pain Abdominal pain Low back ache Acute viral syndrome Gastroenteritis Dehydration Hypocalcemia Missed GERD (gastroesophageal reflux disease) Grand multipara History of recurrent miscarriages History of miscarriage, currently History of anemia Urinary tract infection History of gastroesophageal reflux (GERD) Endometriosis Dysmenorrhea Menorrhagia History of miscarriage History of fainting History of heavy periods Surgical History History of tympanostomy tube placement History of section Hx of section Family History Family history of diabetes mellitus type II Family history of myocardial infarction Social History Smoking Status: Never smoker alcohol intake: never substance use type: denies use current occupational status: unemployed Travel in the last 8 weeks?: None household members: spouse housing: house 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 Have you lived/traveled outside US in past 30 days?: No Contact w/someone who lives/traveled outside US past 30 days?: No Exposure to someone with infectious disease in past 14 days?: No Do you have a fever (greater than 100.4 F or 38 C)?: No Have you tested positive for COVID-19?: No Exposed to someone with COVID-19 in past 14 days?: No Do you have a sore throat?: No Do you have a cough?: No Do you have any weakness?: No Do you have any diarrhea?: No Are you experiencing any unusual bleeding?: No Do you have any muscle aches/pain?: No Do you have any abdominal pain?: No Are you experiencing loss of taste or smell?: No Other Medical History Have you received the Flu Vaccine for this season: No Have you received the Pneumonia Vaccine: No Review of Systems Review of Systems Review of systems:: pertinent systems reviewed and negative unless documented below Meds Home Medications and Allergies Home Medications ?Medication ?Instructions ?Recorded ?Confirmed ?Type omeprazole 20 mg capsule,delayed 20 mg PO DAILY 09/02/24 09/10/24 History release vit no.95-ferrous 1 tab PO DAILY 09/02/24 09/10/24 History fumarate 28 mg-folic acid 800 mcg tablet () thiamine HCl (vitamin B1) 100 mg 100 mg PO DAILY 09/02/24 09/10/24 History tablet potassium chloride 20 mEq 40 meq (2 x 20 mEq) PO BID 5 days 09/05/24 09/10/24 Rx tablet,extended #20 tabs release(part/cryst) (Klor-Con M) New Prescriptions to Start Prescriptions: Allergies Allergy/AdvReac Type Severity Reaction Status Date / Time peanut Allergy Severe Hives Verified 09/10/24 14:31 Exam Constitutional Constitutional: no acute distress *Routine HEENT Exam Head: Present normocephalic Eye: Present EOMI and PERRL ENT: Present mucous membranes moist *Routine Neck Exam Neck: Present supple; Absent lymphadenopathy *Routine Respiratory Exam Respiratory: Present CTA bilaterally *Routine Cardiovascular Exam Cardiovascular: Present RRR *Routine Abdominal Exam Abdominal: Present soft and normoactive bowel sounds; Absent tenderness *Routine Rectal Exam Rectal:: deferred *Routine Genitalia Exam Genitalia:: deferred *Routine Extremities Exam Extremities: Absent cyanosis, clubbing or edema *Routine Skin Exam Skin: Present warm; Absent rash *Routine Neurological Exam Neurological: Present alert and oriented X3 Detailed Exam Patient deferred: external exam External: Present normal urethra appearance, swelling and tenderness Comments: She has a 2 to 3 cm firm nodule under the anterior vaginal wall consistent with an abscess. Assessment and Plan *Assessment and plan (1) Abscess of vagina: Status: Acute Category: Medical Code(s): N76.0 - Acute vaginitis (2) Hypomagnesemia: Status: Acute Category: Medical Code(s): E83.42 - Hypomagnesemia (3) Vomiting affecting : Status: Acute Category: Medical Code(s): O21.9 - Vomiting of , unspecified (4) Hypokalemia: Status: Acute Category: Medical Code(s): E87.6 - Hypokalemia Plan 1. She has excruciating pain in the vagina. She has what appears to be a 2 to 3 cm firm abscess. It is exquisitely tender to palpate. 2. We will admit her for IV antibiotics and start IV clindamycin. We will give her oral pain medicine. We will give her antiemetics. 3. We will make arrangements for her to have an MRI as soon as possible to look at this abscess. 4. We will consider drainage of this abscess in the morning. 5. We will get CBC and Chem-12. Will also get a magnesium level. She is known to have severe hypokalemia and hypomagnesemia. We will offer her replacement therapy as needed.
--- NOTE | 2024-09-10 15:34 | MR_ITS ---
PROCEDURE INFORMATION: Exam: MR Pelvis Without Contrast, Uterus and Adnexa Exam date and time: 09/10/2024 5:05 PM Age: 34 years old Clinical indication: Vaginal pain; Vaginal abscess in the anterior aspect of the vaginal wall , PT is 28 weeks ; Additional info: Vaginal abcess TECHNIQUE: Imaging protocol: Magnetic resonance imaging of the pelvis without contrast. Exam focused on the uterus, cervix, and adnexa. COMPARISON: CT ABDOMEN PELVIS W CON 02/20/2024 9:09 PM FINDINGS: Uterus: Partially visualized gravid uterus. Right ovary/adnexa: Grossly normal Left ovary/adnexa: Grossly normal Vagina: Increased T2 signal probable fluid located within the anterior vaginal wall region. Measures 2.4 cm medial-lateral by 1.7 cm AP by 2.1 cm craniocaudal dimension. It is located approximately 2 cm of the vaginal introitus. Intraperitoneal space: No free fluid. Lymph nodes: No enlarged nodes. Bones/joints: Unremarkable. No suspicious lesions. Soft tissues: Unremarkable. IMPRESSION: 1. Increased T2 signal probable fluid located within the anterior vaginal wall region. Measures 2.4 cm medial-lateral by 1.7 cm AP by 2.1 cm craniocaudal dimension. It is located approximately 2 cm of the vaginal introitus. Findings are consistent with the reported history of vaginal abscess 2. Partially visualized gravid uterus.
[2024-09-10 16:13] LABS: Hematocrit 27.1 % (37.0-47.0); Hemoglobin 9.1 g/dL (12.2-16.2); Immature Granulocytes % 0.3 %; Mean Corpuscular HGB Conc 33.6 g/dL (31.8-35.4); Mean Corpuscular Hemoglobin 29.5 pg (27.0-31.2); Mean Corpuscular Volume 88.0 fl (81-99); Nucleated Red Blood Cells % 0 %; Platelet Count 213 K/mm3 (142-424); Red Blood Count 3.08 M/mm3 (4.20-5.40); Red Cell Distribution Width-SD 44.7 fL; White Blood Count 10.2 K/mm3 (4.8-10.8)
[2024-09-10] MEDS: CLINDAMYCIN PHOSPHATE/D5W 900 MG/50 ML PIGGYBACK 100 MG IV ×2 (16:18→23:50)
[2024-09-10] MEDS: OXYCODONE 5MG IMMEDIATE RELEASE TABLET 5 MG PO ×2 (16:18→21:59)
[2024-09-10] MEDS: POTASSIUM CHLORIDE 20MEQ TAB 20 MEQ PO ×2 (16:18→22:00)
[2024-09-10] MEDS: MVI, ADULT NO.1 WITH VIT K 10 ML, THIAMINE HCL 100 MG, MAGNESIUM SULFATE 2 GM in LACTAT... 125 ML IV (16:19)
[2024-09-10 16:21] LABS: Albumin Level 2.7 g/dl (3.5-5.0); Chloride 104 mmol/L (98-107); Sodium 131 mmol/L (136-145)
[2024-09-10 16:24] LABS: Alanine Aminotransferase 16 U/L (12-78); Albumin/Globulin Ratio 0.7 (1.1-1.8); Alkaline Phosphatase 78 U/L (38-126); Anion Gap 4.7 mEq/L (5-15); Aspartate Amino Transferase 24 U/L (14-36); Bilirubin,Total 0.3 mg/dl (0.2-1.3); Calcium 8.7 mg/dl (8.4-10.2); Carbon Dioxide 25 mmol/L (22.0-30.0); Globulin 3.7 g/dL (1.3-3.2); Glucose 91 mg/dl (74-100); Magnesium 1.4 mg/dl (1.6-2.3); Total Protein,Serum 6.4 g/dl (6.3-8.2)
--- NOTE | 2024-09-10 16:31 | PC.NURSE ---
1631-Re from the lab called with critical potassium of 2.7. Pts name and verified
[2024-09-10 16:33] LABS: Potassium 2.7 mmoL/L (3.5-5.1)
[2024-09-10 16:58] VITALS: BP 97/65; PULSE 82; RESP 18; TEMP 37.1; O2SAT 97; BMI 27.4
[2024-09-10 17:06] LABS: Blood Urea Nitrogen 3 mg/dl (7-17); Creatinine,Serum 0.40 mg/dl (0.52-1.04); Estimated Glomerular Filt Rate 184 ml/min (>60); GFR (African American) 222 ML/MIN (>60)
[2024-09-10 17:16] LABS: Creatinine Clearance Estimated 229 mL/min (50-200)
[2024-09-10] MEDS: MAGNESIUM SULFATE IN WATER 2 GM/50 ML PIGGYBACK IV ×3 (18:40→20:52)
[2024-09-10] MEDS: ONDANSETRON 4MG/2ML VIAL 4 MG IV (19:43)
[2024-09-10] MEDS: PROMETHAZINE HCL 25MG/ML 1ML VIAL 12.5 MG IV (20:31)
[2024-09-10] MEDS: SODIUM CHLORIDE 0.9% 25ML BAG 25 ML IV (20:31)
[2024-09-10 20:55] LABS: Microscopic, Urine URINE MICROSCOPIC (MICROSCOPIC)
[2024-09-10 20:56] LABS: Bilirubin,Urine Negative (Negative); Color,Urine YELLOW (Yellow); Glucose,Urine (UA) Negative (Negative); Ketones,Urine Negative (Negative); Leukocyte Esterase,Urine 2+ (Negative); PH,Urine 8.5 (5.0-8.5); Protein,Urine Negative (Negative); Specific Gravity, Urine 1.010 (1.005-1.030); Urobilinogen,Urine 0.2 EU/dl (0.2)
[2024-09-10] MEDS: CALCIUM CARBONATE 500MG CHEWTAB 1000 MG PO (22:00)
[2024-09-10 22:30] LABS: Bacteria,Urine 2+ /lpf; Squamous Epithelial Cell,Urine Occasional #/hpf (0-5)
[2024-09-10 22:31] LABS: Amorphous Sediment,Urine 2+ /lpf
[2024-09-10 23:56] VITALS: BP 104/82; PULSE 74; RESP 16; TEMP 36.7; O2SAT 98
[2024-09-11] MEDS: PROMETHAZINE HCL 25MG/ML 1ML VIAL 12.5 MG IV ×6 (00:31→22:47)
[2024-09-11] MEDS: SODIUM CHLORIDE 0.9% 25ML BAG 25 ML IV ×5 (00:31→22:46)
[2024-09-11] MEDS: OXYCODONE 5MG IMMEDIATE RELEASE TABLET 5 MG PO ×4 (02:28→19:16)
[2024-09-11 04:05] VITALS: BP 98/56; PULSE 70; RESP 16; TEMP 36.9; O2SAT 98
[2024-09-11 06:20] LABS: Anion Gap 10.1 mEq/L (5-15); Calcium 8.2 mg/dl (8.4-10.2); Carbon Dioxide 21 mmol/L (22.0-30.0); Chloride 109 mmol/L (98-107); Creatinine Clearance Estimated 183 mL/min (50-200); Creatinine,Serum 0.50 mg/dl (0.52-1.04); Estimated Glomerular Filt Rate 142 ml/min (>60); GFR (African American) 172 ML/MIN (>60); Magnesium 2.5 mg/dl (1.6-2.3); Potassium 4.1 mmoL/L (3.5-5.1); Sodium 136 mmol/L (136-145)
[2024-09-11 06:28] LABS: Blood Urea Nitrogen < 2 mg/dl (7-17)
[2024-09-11 06:42] LABS: Glucose 62 mg/dl (74-100)
[2024-09-11] MEDS: LACTATED RINGERS 1000ML 1,000 ML 125 ML IV (06:49)
[2024-09-11 08:12] VITALS: BP 99/57; PULSE 75; RESP 16; TEMP 36.7; O2SAT 100
[2024-09-11] MEDS: CLINDAMYCIN PHOSPHATE/D5W 900 MG/50 ML PIGGYBACK 100 MG IV ×3 (08:21→23:24)
--- NOTE | 2024-09-11 08:37 | XR_ITS ---
FINAL REPORT CLINICAL HISTORY: Confirm PICC line placement COMPARISON: 04/19/2022 FINDINGS: SINGLE VIEW CHEST The heart is normal in size. The mediastinum is unremarkable. Left PICC line tip terminates at the junction of the SVC and right atrium. The lungs are clear. There is no pneumothorax. IMPRESSION: PICC line as above. Reviewed, Interpreted and Dictated by Jorge Shah MD Transcribed by Klarissa Galindo Authenticated and . [facility]
--- NOTE | 2024-09-11 08:39 | EXP.ACUTE.PN ---
Subjective *Date: 09/11/24 *Time: 08:39 Interval history: She is doing a little better this morning. She still has severe pain in the vagina and we will plan to perform an incision and drainage of her abscess this morning. Her potassium and magnesium levels have come up to the normal range. She received 8 rounds of potassium yesterday and 6 g every IV magnesium. We will plan to get a consult down at for her hypokalemia and hypomagnesemia. We will also get a PICC line put in today. Medical Exam Vital signs and Labs for Last 24 Hours: Vital Signs Temp Pulse Resp BP Pulse Ox O2 Del Method 09/11/24 04:05 98.5 F 70 16 98/56 L 98 Room Air 09/10/24 23:56 98.1 F 74 16 104/82 L 98 Room Air 09/10/24 16:58 98.8 F 82 18 97/65 L 97 Room Air Intake and Output 09/10/24 09/11/24 09/11/24 19:59 03:59 11:59 Output Total 300 / 1600 500 / 1600 800 / 1600 Balance -300 / -1600 -500 / -1600 -800 / -1600 Output: Output, Urine Amount 300 / 1600 500 / 1600 800 / 1600 Other: Weight 160 lb Patient Weight 09/11/24 11:59 Weight 160 lb Laboratory Results - last 24 hr 09/10/24 16:00: WBC 10.2, RBC 3.08 L, Hgb 9.1 L, Hct 27.1 L, MCV 88.0, MCH 29.5, MCHC 33.6, RDW 14.2, Plt Count 213, MPV 11.5 H, Neut % (Auto) 72.8, Lymph % (Auto) 18.5, [place] % (Auto) 7.6, Eos % (Auto) 0.7, Baso % (Auto) 0.1, Neut # (Auto) 7.4, Lymph # (Auto) 1.9, [place] # (Auto) 0.8, Eos # (Auto) 0.1, Baso # (Auto) 0.0, Sodium 131 L, Potassium 2.7 L*, Chloride 104, Carbon Dioxide 25, Anion Gap 4.7 L, BUN 3 L, Creatinine 0.40 L, Estimated Creat Clear 229, Estimated GFR 184, Est GFR ( Amer) 222 D, Glucose 91, Calcium 8.7, Magnesium 1.4 L, Total Bilirubin 0.3, AST 24, ALT 16, Alkaline Phosphatase 78, Total Protein 6.4, Albumin 2.7 L, Globulin 3.7 H, Albumin/Globulin Ratio 0.7 L 09/10/24 20:45: Urine Color Yellow, Urine Appearance Turbid, Urine pH 8.5, Ur Specific [place] 1.010, Urine Protein Negative, Urine Glucose (UA) Negative, Urine Ketones Negative, Urine Blood Trace-l, Urine Nitrate Negative, Urine Bilirubin Negative, Urine Urobilinogen 0.2, Ur Leukocyte Esterase 2+ A, Urine RBC 3-5, Urine WBC 5-10, Ur Squamous Epith Cells Occasional, Amorphous Sediment 2+, Urine Bacteria 2+ 09/11/24 05:24: Sodium 136, Potassium 4.1 D, Chloride 109 H, Carbon Dioxide 21 L, Anion Gap 10.1, BUN < 2 L D, Creatinine 0.50 L D, Estimated Creat Clear 183, Estimated GFR 142, Est GFR ( Amer) 172 D, Glucose 62 L D, Calcium 8.2 L, Magnesium 2.5 H D I & O for Labs for Last 24 Hours: Intake & Output 09/08/24 09/09/24 09/10/24 09/11/24 11:59 11:59 11:59 11:59 Output Total 1599 / 1600 Balance -1600 / -1600 Weight 160 lb Head: Present normocephalic ENT: Present normal exam Neck: Present normal inspection Respiratory: Present normal respiratory effort; Absent accessory muscle use Assessment and Plan *Assessment and plan (1) Abscess of vagina: Status: Acute Category: Medical Code(s): N76.0 - Acute vaginitis (2) Hypomagnesemia: Status: Acute Category: Medical Code(s): E83.42 - Hypomagnesemia (3) Vomiting affecting : Status: Acute Category: Medical Code(s): O21.9 - Vomiting of , unspecified (4) Hypokalemia: Status: Acute Category: Medical Code(s): E87.6 - Hypokalemia Plan 1. She has a vaginal abscess and we will plan to drain that today. We discussed the risk of surgery that includes bleeding infection, injuries to adjacent areas. We will likely put in some iodoform gauze packing as well. I would like it to close up secondarily. All questions were answered and consents were signed. 2. We will also organize a PICC line for her today. She has difficulty with her veins and she is getting so much potassium. 3. We will likely discharge her home later today. We will make arrangements for a consult at where she can have access to bank and savings securities trader as well as high risk. We will continue with infusions of magnesium and potassium. 4. After she is discharged home we will follow-up with her at least weekly and she will follow-up in the outpatient infusion clinic twice weekly.
[2024-09-11] MEDS: MVI, ADULT NO.1 WITH VIT K 10 ML, THIAMINE HCL 100 MG, MAGNESIUM SULFATE 2 GM in LACTAT... 125 ML IV (09:36)
--- OUTSIDE RECORDS SUMMARY | 2024-09-11 10:50 | XMS_ITS | Encounter Summary ---
Author Organization Healthcare Address [address] [place] [phone] Care Team Providers Care Automotive Repair Technician Name Role Phone Unavailable Primary Care Provider Unavailabl e Reason for Referral * Consultation (Routine) - Authorized Specialty Diagnoses / Procedures Referred By Contac t Referred To Contact Nephrology Diagnoses History of proteinuria syndrome care, subsequent , second trimester Staci Jain MD [address] [address] Phone: tel: fax: [facility] Nephrology, Bone & Mineral Metabolism [address], [address] [place] [address] Phone: tel: fax: Referral ID Status Reason Start Date Expiration Date Visits Requested Visits Authorized [id number] Authorized Specialty Services Required 07/22/2024 01/21/2026 1 1 Encounter Details Date Type Department Care Team (Late st Contact Info) Description 07/22/2024 [facility] [address] [place] [address] Staci Jain MD [address] [place] [address] History of proteinuria syndrome (Primary Dx); care, [...]
--- OUTSIDE RECORDS SUMMARY | 2024-09-11 10:50 | XMS_ITS | Clinical Summary ---
Author Organization Healthcare Address [address] [place] [address] Care Team Providers Care Fund Raiser Name Role Phone Unavailable Primary Care Provider Unavailabl e Encounters Date Type Department Care Team Description 07/22/2024 [facility] [address] [place] [address] Staci Jain MD History of proteinuria syndrome (Primary Dx); care, subsequent , second trimester 07/22/2024 [facility] [address] [place] [address] Sandy Cardenas MD from Last 3 Months [...] 2012 [facility]-Cervical Cancer Screening 2021 [facility]-HPV/Cotest 2021 [id number] Vaccine (2 season) 2023 05/04/2022 [facility]-Influenza Vaccine [...]
--- OUTSIDE RECORDS SUMMARY | 2024-09-11 10:50 | XMS_ITS | Clinical Summary ---
Author Organization [facility] [place] [address] Phone Care Team Providers Care Mesh Man Name Role Phone Unavailable Primary Care [...] migh t be different from the original. [facility] - Edwardo Ojeda MD Interventional Pain Protocol: NS Appt 03/29/22 Letter Sent Maxime report completed (EVERY 3 MONTHS) ( 03/23/22) Pharmacy: [facility] [address] [place] [phone] [address] [facility] south - [phone] No known active problems Social History Tobacco [...] patient's age to complete this topic Insurance [employer] [facility] [place] [address] [place] [id number] COUNTS INCLUDE 234 BEDS AT THE [facility] [employer] [facility] [address]
--- OUTSIDE RECORDS SUMMARY | 2024-09-11 10:50 | XMS_ITS | Encounter Summary ---
[facility] [address] [place] [address] Care Team Providers Care Tile Layer Helper Name Role Phone Elder Norma FERNÁNDEZ Primary Care Provider + [phone] Encounter Details Date Type Department Care Team (Latest Contact Info) Description 08/29/2024 Travel Social History Tobacco Use Types Packs/Day Years Used Date Smoking Tobacco: Never Smokeless Tobacco: Never Alcohol Use Standard Drinks/Week Comments Never 0 (1 standard drink = 0.6 oz pur e alcohol) [facility] Utilities Answer Date Recorded In the past 12 months has [employer] electric, gas, oil, or water company threatened [...] Not hard at all 05/28/2024 [facility] of Occupat ional Health - Occupational Stress [...] GED or equivalent No 05/28/2024 Preferred Language Chilean 05/28/2024 PHQ-2 Answer Date Recorded Patient Health [...] Description 01/20/2025 3:30 PM EST Office Visit [facility] GASTROENTEROLOGY [address] [facility] [address] [place] [phone] Robbin Escalante MD [address] [facility] [address] [place] [address] documented as of this encounter Visit Diagnoses Not on filedocumented in this encounter Additional Health Concerns Assessment Noted Time PHQ-2 Depression Total Score: 2 05/28/19 25 4:39 PM EDT documented as of this encounter Care Teams Tile Layer Helper Relationship Specialty Start Date End Date Norma Friedman APRN [address] [place] [address] [place] [address] PCP - General Family Medicine 05/14/24 documented as of this encounter
--- OUTSIDE RECORDS SUMMARY | 2024-09-11 10:51 | XMS_ITS | Clinical Summary ---
Author Organization [facility] Address [address] [place] [address] Care Team Providers Care Graduate Teaching Associate Name Role Phone Unavailable Primary Care Provider Unavailabl e Source Comments [facility] is fully rolled out with thefollowing exceptions:General Clinical Research [facility] Social History Tobacco Use Types Packs/Day [...]
--- OUTSIDE RECORDS SUMMARY | 2024-09-11 10:51 | XMS_ITS ---
Author Organization [facility] Address [address] [place] [address] Care Team Providers Care Stapling Machine Operator Name Role Phone Norma Friedman APRN Primary Care Provider Motherhood Connection Status:Engaged (Active) Start date:05/23/2024 Enrollment date:05/23/2024 Case Team Name Relationship Phone Bindu Castellon RN Nurse Navigator Christy Zabala RN(Responsible Staff) Nurse Navig ator Continued Care and Services Coordination
--- OUTSIDE RECORDS SUMMARY | 2024-09-11 10:51 | XMS_ITS | Clinical Summary ---
Author Organization [facility] ([place], [place], [place], [place]) Address [address] [place] [address] Care Team Providers Care Grain Loader Name Role Phone Unavailable Primary Care Provider [...]
--- OUTSIDE RECORDS SUMMARY | 2024-09-11 10:51 | XMS_ITS | Encounter Summary ---
[facility] Address [address] [place] [phone] Care Team Providers Care Railroad Car Letterer Name Role Phone Elder Norma FERNÁNDEZ Primary Care Provider + [phone] Encounter Details Date Type Department Care Team (Late st Contact Info) Description 07/07/2024 Results Follow-Up [facility] OBGYN [address] [place] [address] [place] [phone] Kelly Delgado APRN [address] [facility] [address] [place] [address] Social History Tobacco Use Types Packs/Day Years Used Date Smoking Tobacco: Never Smokeless Tobacco: Never Alcohol Use Standard Drinks/Week Comments Never 0 (1 standard drink = 0.6 oz pur e alcohol) [facility] Utilities Answer Date Recorded In the past 12 months has [employer], gas, oil, or water [employer] threatened to shut off services in your [...] and heating? Not hard at all 05/28/2024 [facility] of Occupat ional Health - Occupational [...] Visit [facility] GASTROENTEROLOGY [address] [facility] [id number] [address] Robbin Escalante MD [address] [address] documented as of this encounter Visit Diagnoses Not on filedocumented in this encounter Additional Health Concerns Assessment Noted Time PHQ-2 Depression Total Score: 2 05/28/19 25 4:39 PM EDT documented as of this encounter Care Teams Railroad Car Letterer Relationship Specialty Start Date End Date Norma Friedman APRN [address] [place] [address] [place] [address] PCP - General Family Medicine 05/14/24 documented as of this encounter
--- OUTSIDE RECORDS SUMMARY | 2024-09-11 10:51 | XMS_ITS | Encounter Summary ---
[facility] [address] [place] [address] Care Team Providers Care Manager Unix Name Role Phone Ivyashlyn Norma FERNÁNDEZ Primary Care Provider + [phone] Encounter Details Date Type Department Care Team (Late st Contact Info) Description 08/27/2024 Telephone [facility] O[facility]YN [address] [place] [address] Staci Jain MD 1700 [facility] [address] [place] [address] Social History Tobacco Use Types Packs/Day Years Used Date Smoking Tobacco: Never Smokeless Tobacco: Never Alcohol Use Standard Drinks/Week Comments Never 0 (1 standard drink = 0.6 oz pur e alcohol) [facility] Utilities Answer Date Recorded In the past 12 months has [employer], [employer], oil, or water [employer] threatened to shut off services in your [...] and heating? Not hard at all 05/28/2024 [facility] [place] of Occupat ional Health - Occupational Stress [...] GED or equivalent No 05/28/2024 Preferred Language Anguillan 05/28/2024 PHQ-2 Answer Date Recorded Patient Health [...] [facility] [address] [phone] Robbin Escalante MD [address] [address] Scheduled Orders Name Type Priority Associated Diagnoses Orde r Schedule Basic Metabolic Panel Lab Routine History of hypokalemia Expected: 09/01/2024 (Approximate), Expires: 11/27/2025 documented as of this encounter Visit Diagnoses Diagnosis History of hypokalemia- Primary documented in this encounter Additional Health Concerns Assessment Noted Time PHQ-2 Depression Total Score: 2 05/28/19 25 4:39 PM EDT documented as of this encounter Care Teams Manager [employer] Relationship Specialty Start Date End Date Norma Friedman APRN [address] [place] [address] [place] [address] PCP - General Family Medicine 05/14/24 documented as of this encounter
--- OUTSIDE RECORDS SUMMARY | 2024-09-11 10:51 | XMS_ITS ---
Author Organization [facility] Address [address] [place] [address] Care Team Providers Care Show Operations Supervisor Name Role Phone Unavailable Primary Care Provider Unavailabl e Transplant Episode Kidney Potential Donor [facility] ([place], [place]) - [facility] Referred on 05/03/2022 Marked as Deferred on 05/04/2022 Reason: Other Kidney CoordinatorNadine Augustin R.N. Phone: N/A Fax: N/A Email: N/A Care Team Name Role Phone Fax Email Nadine Augustin R.N. Kidney Coordinator N/A N/A N/A Events Pre-Donation Referred: 05/03/2022
--- OUTSIDE RECORDS SUMMARY | 2024-09-11 10:51 | XMS_ITS | Clinical Summary ---
Author Organization [facility] Address [address] [place] [address] Care Team Providers Care Exhibition Specialist Name Role Phone Norma Friedman APRN Primary Care Provider + [phone] Allergies Active Allergy Reactions Criticality Noted Date [...] Department Care Team Description 5 Results Follow-Up [facility] OBGYN [address] [place] [address] Rob Wharton MD 5 Telephone [facility] [address] [facility] [address] [place] [address] Rob Wharton MD 5 10:00 AM EDT Routine [facility] OBGYN [address] [place] [address] Rob Wharton MD GA: 26w4d 5 Travel 5 Telephone [facility] [address] [facility] [address] [place] [address] Rob Wharton MD 5 Telephone [facility] OBGYN [address] [place] [address] Rob Wharton MD 5 1:44 PM EDT Anesthesia Event [facility] ENDO SUITES [address] [place] [address] Akash Anguiano MD Lanham, John, CRNA 5 1:33 PM EDT - 5 2:05 PM EDT Surgery [facility] ENDO SUITES [address] [place] [address] Blu Alvarado MD ESOPHAGOGASTRODUODENOSCOPY [88002 (CPT )] 5 1:59 PM EDT - 5 4:28 PM EDT Hospital Encounter [facility] ANTEPARTUM [address] [place] [address] Rob Wharton MD Brunner, Mark I, MD Dysphagia, unspecified type (Primary Dx) Discharge Disposition: Home or Self Care 5 10:15 AM EDT Routine [facility] OBGYN [address] [place] [address] Jacey Mathews, BEREAVEMENT PROGRAM COORDINATOR GA: 25w1d 5 Telephone [facility] OBGYN [address] [place] [address] Jacey Mathews, BEREAVEMENT PROGRAM COORDINATOR 5 Travel 5 Patient Outreach [facility] LABOR DELIVERY [address] [place] [address] Christy Zabala RN 5 9:10 AM EDT Routine [facility] OBGYN [address] [facility] [address] [place] [address] Rob Wharton MD GA: 21w1d 5 8:00 AM EDT Office Visit [facility] MATERNAL MEDICINE [address] [facility] [address] [place] [address] Sebastian Larsen MD History of prior with small for gestational age (Primary Dx) 5 7:44 AM EDT - 5 11:59 PM EDT Hospital Encounter [facility] US PER DIAG CTR [address] [place] [address] Kelly Delgado, BEREAVEMENT PROGRAM COORDINATOR care, antepartum, unspecified ; High risk due to history of labor, antepartum; History of prior with small for gestational age Discharge Disposition: Home or Self Care 5 Travel 5 Results Follow-Up [facility] [address] [facility] [address] [place] [address] Kelly Delgado, JOLENE 5 10:10 AM EDT Routine [facility] [address] [facility] [address] [place] [address] Kelly Delgado, BEREAVEMENT PROGRAM COORDINATOR GA: 18w5d 5 9:30 AM EDT Ancillary Procedure [facility] OBGYN [address] [facility] [address] [address] [place] [id number] care in second trimester, unspecified 5 Travel 5 Telephone [facility] [address] [facility] [address] [place] [address] Uriel Russ MD TRANSFER OF CARE REQ 5 10:15 PM EDT - 5 11:59 PM EDT Hospital Encounter [facility] LABOR DELIVERY [address] [place] [id number] Rob Wharton MD Mirsky, Elizabeth, MD Discharge Disposition: Home or Self Care 5 Travel 5 Telephone [facility] [address] [facility] [address] [place] [address] Uriel Russ MD [facility], OB 5 Telephone [facility]BGYN [address] [place] [address] Uriel Russ MD [facility] [address] [place] [address] E-VisitToni MD 5 Results Follow-Up [facility] OBGYN [address] [place] [address] Uriel Russ MD 5 3:20 PM EDT Routine [facility] OBGYN [address] [place] [address] Uriel Russ MD GA: 17w2d 5 3:00 PM EDT Ancillary Procedure [facility] OBGYN [address] [place] [address] Bleeding in early (Primary Dx) 5 Travel 5 Telephone [facility] OBGYN [address] [place] [address] Uriel Russ MD 5 9:40 AM EDT Routine [facility] OBGYN [address] [place] [address] Uriel Russ MD GA: 15w2d 5 Travel [...] drink = 0.6 oz pur e alcohol) [facility] Utilities Answer Date Recorded In the past 12 months has Thryve, gas, oil, or water [employer] threatened to shut off services in your [...] hard at all 05/28/2024 [facility] [place] of Occupat ional Health - Occupational Stress [...] GED or equivalent No 05/28/2024 Preferred Language Costa [place]ican 05/28/2024 PHQ-2 Answer Date Recorded Patient Health [...] Description 01/20/2025 3:30 PM EST Office Visit [facility] GASTROENTEROLOGY [address] [address] Robbin Escalante MD [address] [address] Health Maintenance Due Date Last Done Comments [...] 08/20/2024 1:55 PM EDT Dysphagia, unspecified type DC ESOPHAGOGASTRODUODENOSCOP Y TRANSORAL DIAGNOSTIC 08/20/2024 1:44 PM EDT Dysphagia, unspecified type UPPER GI ENDOSCOPY 08/20/2024 1:09 PM EDT BASIC METABOLIC PANEL STAT 08/20/2024 5:25 AM EDT POTASSIUM STAT 08/19/2024 8:53 PM EDT ABORH 2ND SPECIMEN VERIFICATION STAT 08/19/2024 4:34 PM EDT NONSTRESS TEST Routine 08/19/2024 4:17 PM EDT [facility] Routine 08/19/2024 3:25 PM [...] AM EDT Multigravida in second trimester [facility] DIAGNOSTIC [...] - 08/30/2024 6:09 AM EDT Performed at: [address] [place] [id number] Support Representative: Kevin Harman MD, Phone: [phone] Patient Fasting: N us Rob Wharton MD LAB BLOOD ORDERABLES Final Result [facility] (AMBULATORY) [address] [place] [address], [facility] [address] [place] [address], * (ABNORMAL) Comprehensive Metabolic Panel (08/29/2024 11:05 AM EDT) Only the most recent of4 resultswithin the time period is included. [facility] Glucose 72 65 - 99 mg/dL [...] AM EDT 08/29/2024 Narrative [facility] (AMBULATORY) - 08/30/2024 6:09 AM EDT Performed at: [address] [place] [id number] Support Representative: Kevin Harman MD, Phone: [phone] Patient Fasting: N us Rob Wharton MD LAB BLOOD ORDERABLES Final Result [facility] (AMBULATORY) [address] [place] [address], [facility] [address] [place] [address], [place] [phone] * (ABNORMAL) POC Urinalysis Dipstick (08/29/2024 10:13 AM EDT) Only the most recent of5 resultswithin the time period is included. Glucose, UA Negative Negative mg/dL [facility] Protein, POC Trace(A) Negative mg/dL [facility] Urine 08/29/2024 10:1 3 AM EDT us Rob Wharton MD POINT OF CARE TEST OR DERABLES Final Result [facility]
[address] [place] [address], * BH AN ETT AIRWAY (08/20/2024 2:02 PM EDT) Narrative Liborio Peralta CRNA - 08/20/2024 2:02 PM EDT Liborio PeraltaDAYNE 08/20/2024 2:03 PM Airway Reason: elective Date/Time: 08/20/2024 2:02 PM Airway not difficult General Information and Staff Patient location during procedure: OR PLASTIC PRODUCTION MACHINE SETTER/CAA: Junior Zbigniew Wharton, PLASTIC PRODUCTION MACHINE SETTER Indications and Patient Condition Indications for airway [...] with symmetric chest rise and fall Liborio [place] DAYNE ANESTHESIA ORDERABLES Final Res ult * Tissue Pathology Exam (08/20/2024 1:55 PM EDT) Case Report Surgical Pathology Report Case: [id number] Authorizing Provider: Blu Alvarado MD Collected: 08/20/2024 [...] Final Result [facility]
[address] [place] [address], * Upper GI Endoscopy (08/20/2024 1:09 PM [...] - 15.0 mmol/L 08/20/2024 6:13 AM EDT [facility] eGFR 126.6 >60.0 mL/min/1.7 3 08/20/2024 6:13 AM EDT [facility] Blood Venipuncture [...] MD LAB BLOOD ORDERABLES Final Resu lt [facility]
[address] [place] [address], [place] [phone] * (ABNORMAL) Potassium (08/19/2024 8:53 PM EDT) Potassium 2.7(L) 3.5 - 5.2 mmol/L 08/19/2024 9:20 PM EDT [facility] Blood Venipuncture / Unknown 08/19/2024 8:53 PM EDT 08/19/2024 9:04 PM EDT Kt Fan DO LAB BLOOD ORDERABLES Final Result Performing Organization Address City/[facility]/ZIP Co de Phone Number [facility]
[address] [place] [address], * ABO RH Specimen Verification (08/19/2024 4:34 PM EDT) ABO Type O 08/19/2024 7:39 PM EDT [facility] BB LABORATORY RH type Positive 08/19/2024 7:39 PM EDT [facility] Blood Venipuncture / Unknown 08/19/2024 4:34 PM EDT 08/19/2024 4:53 PM EDT Rob Wharton MD BLOOD BANK TEST ORDER FRANCO Final Result Performing Organization Address City/[facility] Co de Phone Number [facility] BB LABORATORY
[address] [place] [address], * [facility] (08/19/2024 3:25 PM EDT) Only the most recent of2 resultswithin the time period is included. Anatomical Region Laterality Modality Ultrasound 08/19/2024 3:09 PM EDT Narrative 08/19/2024 4:54 PM EDT PAT NAME: CAROLE GIRARD MED REC#: [id number] DA: 1990 PAT GEND: F PAT TYPE: E EXAM TRAVIS: [id number] REF PHYS ROB WHARTON Comparison Studies The [...] EFW (oz) 9 oz EFW by: Hadlock (LUS-XU-LB-FL) Extended Cav. septi pel. tr 4.7 mm Progress Developer 3.8 mm CM 7.5 mm 84% [...] Heart / Thorax 3-vessel view: Appears normal 9-bsasob-hixrjcd view: Appears normal Stomach: Appears normal Kidneys: [...] in 4wks for growth. Coding ======= Description: 36159-65 Follow Up Candle Wrapping Machine Operator: Alison Verduzco RT R , [facility] Physician: Jo Chappell MD Electronically signed by: Jo Chappell MD at: 16:54 Procedure Note Jo Chappell MD - 08/19/2024 PAT NAME: CAROLE GIRARD MED REC#: [id number] DA: [id number] PAT GEND: F PAT TYPE: E EXAM TRAVIS: [id number] REF PHYS ROB WHARTON Comparison Studies The findings of this study are compared to the prior ultrasound studydated 07/22/24 Patient Status Inpatient Indication ======== History of c/s x1. History of . Vaginal bleeding. Maternal Assessment Klfegd831 cm Height (ft)5 ft Height (in)4 in Luxsph26 kg Weight (lb)158 lb BMI27.31 kg/m Method ======= Transabdominal ultrasound examination. View: Limited by patient bodyhabitus ========= Love . Number of fetuses: 1 Dating ====== Method of dating:based on stated DUSTY GA by prior [id number] w + 1 d DUSTY by prior assessment:12/01/2024 Ultrasound examination on:08/19/2024 GA by U/S based upon:AC, BPD, Femur, HC GA by U/S24 w + 2 d DUSTY by U/S:12/07/2024 Previous dating:based on stated DUSTY, selected on 07/22/2024 Agreed DUSTY of previous datin12/01/2024 Assigned:based on stated DUSTY, selected on 08/19/2024 Assigned GA25 w + 1 d Assigned DUSTY:12/01/2024 [id number] d Biometry Standard BPD57.6 mm 23w 4d 5% Hadlock OFD81.6 mm 26w 4d 88% Jamal HC225.7 mm 24w 4d 13% Hadlock Cerebellum tr28.9 mm 25w 2d 62% Hill AC194.9 mm 24w 1d 15% Hadlock Femur44.9 mm 24w 6d 27% Hadlock Pjlswwp87.3 mm 25w 3d 50% Jamal HC / AC1.16 KSJ759 g 24w 2d 16% Hadlock EFW (lb)1 lb EFW (oz)9 oz EFW by:Hadlock (ATZ-YU-CG-FL) Extended Cav. septi pel. tr4.7 mm Vp3.8 mm CM7.5 mm 84% Nicolaides Head / Face / Neck Cephalic index0.71 <1% Nicolaides Extremities / Bony Struc FL / BPD0.78 FL / HC0.20 FL / AC0.23 Other Structures HHF628 bpm General Evaluation Cardiac activity present. FHR [...] normal Heart / Thorax 3-vessel view:Appears normal 0-oqtrwf-feldbpi view:Appears normal Stomach:Appears normal Kidneys:Appears normal Bladder:Appears [...] office in 4wks for growth. Coding ======= Description:91615-91 Follow Up Candle Wrapping Machine Operator: RT Annetta Hartmann , [facility] Physician: Jo Chappell MD Electronically signed by: Jo Chappell MD at: 16:54 us Kt Fan DO [facility] US ORDERABLES Final [...] Final Resu lt [facility]
[address] [place] [address], * (ABNORMAL) Urinalysis With Microscopic If Indicated [...] PM EDT [facility] Specific [place], UA 1.018 1.005 - 1.030 08/19/2024 3:33 [...] ORDERABLES Final Resu lt [facility]
[address] [place] [address], * (ABNORMAL) CBC Auto Differential (08/19/2024 3:02 [...] 12.3 - 15.4 % 08/19/2024 3:23 PM [facility] RDW-SD 42.4 37.0 - 54.0 fl [...] 0.0 - 0.5 % 08/19/2024 3:23 PM [facility] Neutrophils, Absolute 6.14 1.70 - 7.00 [...] HOSPITAL LABORATORY Blood Line / Unknown 08/19/2024 3 :02 PM EDT 08/19/2024 3:10 PM EDT [facility] [place] LAB BLOOD ORDERABLES Final Result [facility]
[address] [place] [address], * Protein / Creatinine Ratio, Urine - Urine, Clean Catch (08/19/2024 3:02 PM EDT) Protein/Creati nine Ratio, Urine 126.1 0.0 - 200.0 mg/G Crea 08/20/2024 12:47 AM EDT [facility] Creatinine, Urine 148.3 mg/dL 08/20/2024 12:47 AM EDT [facility] Total Protein, Urine 18.7 mg/dL 08/20/2024 12:47 AM EDT [facility] Urine Urine specimen obtained by clean catch procedure / Unknown Collection / Unknown 08/19/2024 3:02 PM EDT 08/19/2024 4:26 PM EDT Kt Fan URINE ORDERABLES Final Resu lt [facility]
[address] [place] [address], * Type & Screen (08/19/2024 3:02 PM EDT) ABO Type O 08/19/2024 3:51 PM EDT [facility] LABORATORY RH type Positive 08/19/2024 3:51 PM EDT [facility] Antibody Screen Negative 08/19/2024 3:51 PM EDT [facility] LAB[facility] T&S Expiration Date 08/22/2024 11:59:59 PM 08/19/2024 3:51 PM EDT [facility] Blood Line / Unknown 08/19/2024 3: 02 PM EDT 08/19/2024 3:15 PM EDT us Kt Fan DO BLOOD BANK TEST ORDERABLES Edited Result - Final Performing Organization Address [facility] Co de Phone Number [facility]
[address] [place] [address], [place] [phone] * (ABNORMAL) Magnesium (08/19/2024 3:02 PM EDT) Magnesium 1.5(L) 1.6 - 2.6 mg/dL 08/19/2024 5:12 PM EDT [facility] Blood Line / Unknown 08/19/2024 3: 02 PM EDT 08/19/2024 3:10 PM EDT us Kt Fan DO LAB BLOOD ORDERABLES Final Result Performing Organization Address [facility] Co de Phone Number [facility]
[address] [place] [address], [place] [phone] * Lipase (08/19/2024 3:02 PM EDT) Lipase 13 13 - 60 U/L 08/19/2024 3:36 PM EDT [facility] Blood Line / Unknown 08/19/2024 3: 02 PM EDT 08/19/2024 3:10 PM EDT us Kt Fan DO LAB BLOOD ORDERABLES Final Result Performing Organization Address City/[facility]/ZIP Co de Phone Number [facility]
[address] [place] [address], * Amylase (08/19/2024 3:02 PM EDT) Amylase 73 28 - 100 U/L 08/19/2024 3:36 PM EDT [facility] Blood Line / Unknown 08/19/2024 3: 02 PM EDT 08/19/2024 3:10 PM EDT Kt Fan DO LAB BLOOD ORDERABLES Final Result [facility]
[address] [place] [address], * US Ob 14 + Weeks Single or First Gestation (07/05/2024 10:17 AM EDT) Anatomical Region Laterality Modality Body Ultrasound 07/05/2024 10:2 8 AM EDT Narrative 07/09/2024 7:02 PM EDT PAT NAME: CAROLE GIRARD MED REC#: [id number] DA: 1990 PAT GEND: F PAT TYPE: O EXAM TRAVIS: [id number] REF PHYS URIEL RUSS Field Marketing Associate Comments Still need heart views and PCI [...] EFW (oz) 9 oz EFW by: Hadlock (CZP-XJ-UF-FL) Extended Progress Developer 6.4 mm CM 3.3 mm 11% Nicolaides [...] Heart / Thorax 3-vessel view: not visualized 3-wjopxz-sevgevh view: not visualized Diaphragm: Appears normal Diaphragm: [...] subsequent visit to complete the anatomic screening. Field Marketing Associate: Soo Harding RDMS Physician: Uriel Russ II, MD, FACOG Electronically signed by: Uriel Russ II, MD, FACOG at: 19:02 Procedure Note Uriel Russ MD - 07/09/2024 PAT NAME: CAROLE GIRARD MED REC#: [id number] DA: [id number] PAT GEND: F PAT TYPE: O EXAM TRAVIS: [id number] REF PHYS URIEL RUSS Field Marketing Associate Comments Still need heart views and PCI N/L, Kidneys, Legs suboptimal Indication ======== anatomy survey Comparison Studies There are no relevant prior studies to which this study is beingcompared Method ======= Voluson E6, Transabdominal ultrasound examination. View: Suboptimal view:limited by early gestational age ========= Love . Number of fetuses: 1 Dating ====== Method of dating:based on stated DUSTY GA by prior [id number] w + 5 d DUSTY by prior assessment:12/01/2024 Ultrasound examination on:07/05/2024 GA by U/S based upon:AC, BPD, Femur, HC GA by U/S18 w + 3 d DUSTY by U/S:12/03/2024 Previous dating:based on stated DUSTY, selected on 06/25/2024 Agreed DUSTY of previous datin12/01/2024 Assigned:based on stated DUSTY, selected on 07/05/2024 Assigned GA18 w + 5 d Assigned DUSTY:12/01/2024 [id number] d General Evaluation Cardiac activity present. FHR [...] 67% Hadlock HC / AC1.13 20% Hadlock WKU601 g 18w 6d 56% Hadlock EFW (lb)0 lb EFW (oz)9 oz EFW by:Hadlock (ZRS-HU-DC-FL) Extended Vp6.4 mm CM3.3 mm 11% Nicolaides Extremities / Bony Struc FL / BPD0.80 >99% Hadlock FL / HC0.20 98% Hadlock FL / AC0.23 89% Hadlock Other Structures PXM115 bpm Anatomy Cranium:Appears normal Lateral ventricles:Appears normal Choroid plexus:Appears normal Midline falx:Appears normal Cavum septi pellucidi:Appears normal Cerebellum:Appears normal Cisterna magna:Appears normal Lips:suboptimal Profile:Appears normal Nose:suboptimal 4-chamber view:not visualized RVOT view:not visualized LVOT view:not visualized Heart / Thorax 3-vessel view:not visualized 7-byruvq-vojxfpq view:not visualized Diaphragm:Appears normal Diaphragm:Intact Cord insertion:Appears [...] Structures Uterus / Cervix Uterus:Visualized Cervix:Visualized Cervical acziji05.6 mm Ovaries / Tubes / Adnexa Rt [...] a subsequent visit tocomplete the anatomic screening. Field Marketing Associate: Soo Harding RDMS Physician: Uriel Russ II, MD, FACOG Electronically signed by: Uriel Russ II, MD, FACOG at: 0319:02 Uriel Russ MD [facility] ORDERABLES Final Result * Urine Culture [...] / Unknown 07/05/2024 07/05/2024 Comment:Urine Release to [facility] Narrative [facility] ([facility]UL[facility]) - 07/07/2024 3:35 AM EDT Performed at: - [facility] [address] [place], [place] [id number] Support Representative: Michael Martinez PhD, Phone: [phone] Kelly Shanel Delgado BEREAVEMENT PROGRAM COORDINATOR MICROBIOLOGY - GENERAL ORDER FRANCO Final Result Performing Organization Address [facility] Co de Phone Number [facility] (AMBULATORY) [address] [place] [address], [facility] [address] [place] [address], * Tryptase (06/25/2024 4:34 PM EDT) Tryptase 6.1 2.2 - 13.2 ug/L [facility] Blood 06/25/2024 4:34 PM EDT 06/25/2024 [facility] - 06/28/2024 9:10 AM EDT Performed at: Lab[address] [id number] Support Representative: Fang Yu MD, Phone: [phone] Uriel Russ MD LAB BLOOD ORDERABLES Final Resu lt Performing Organization Address [facility] Co de Phone Number [facility] ([facility]) [address] [place] [address], [facility] [address] [place] [address], * Vitamin D,25-Hydroxy (06/25/2024 4:34 PM EDT) 25 Hydroxy, Vitamin D 33.7 30.0 - 100.0 ng/mL [facility] Comment: Vitamin D deficiency has been defined by the [place] of Medicine and an Endocrine Society practice guideline as a level of serum 25-OH vitamin D less than 20 ng/mL (1,2). The Endocrine Society went on to further define vitamin D insufficiency as a level between 21 and 29 ng/mL (2). 1. IOM ([place] of Medicine). 2010. Dietary reference intakes for calcium and D. [place]: The National Academies Press. 2. [place], [place], Wade MITCHELL, et al. Evaluation, treatment, and prevention of vitamin D deficiency: an Endocrine Society clinical practice guideline. JCEM. 2010; 96(7):1911-30. Blood 06/25/2024 4:34 PM EDT 06/25/2024 Narrative [facility] (AMBULATORY) - 06/26/2024 7:37 AM EDT Performed at: 01 - [address] [id number] Support Representative: Michael Martinez PhD, Phone: [phone] us Uriel Russ MD LAB BLOOD ORDERABLES Final Resu lt Performing Organization Address City/[facility]/ZIP Co de Phone Number [facility] ([facility]) [address] [place] [address], [facility] [address] [place] [address], * TSH (06/25/2024 4:34 PM EDT) [facility] TSH 0.593 0.450 - 4.500 uIU/mL [facility] Blood 06/25/2024 4:34 PM EDT 06/25/2024 [facility] (AMBULATORY) - 06/26/2024 7:37 AM EDT Performed at: [facility] [address] [id number] Support Representative: Michael Martinez PhD, Phone: [phone] us Uriel Russ MD LAB BLOOD ORDERABLES Final Resu lt Performing Organization Address City/[facility]/ZIP Co de Phone Number [facility] [address] [place] [address], [facility] [address] [place] [address], * T4, Free (06/25/2024 4:34 PM EDT) Pathologist [facility] Free T4 1.09 0.82 - 1.77 ng/dL [facility] Blood 06/25/2024 4:34 PM EDT 06/25/2024 Narrative [facility] (AMBULATORY) - 06/26/2024 7:37 AM EDT Performed at: 01 - [address] [id number] Support Representative: Michael Martinez PhD, Phone: [phone] us Uriel Russ MD LAB BLOOD ORDERABLES Final Resu lt Performing Organization Address City/[facility]/ZIP Co de Phone Number [facility] [address] [place] [address], [place] [phone] [facility] [address] [place] [address], [place] [phone] * (ABNORMAL) Hemoglobin A1c (06/25/2024 4:34 PM EDT) [facility] Hemoglobin A1C 4.7(L) 4.8 - 5.6 % [facility] Comment: Prediabetes: 5.7 - 6.4 Diabetes: >6.4 Glycemic control for adults with diabetes: <7.0 Blood 06/25/2024 4:34 PM EDT 06/25/2024 Narrative [facility] ([facility]) - 06/26/2024 4:35 AM EDT Performed at: - [address] [id number] Support Representative: Michael Martinez PhD, Phone: [phone] us Uriel Russ MD LAB BLOOD ORDERABLES Final Resu lt Performing Organization Address City/[facility]/ZIP Co de Phone Number [facility] [address] [place] [address], [place] [phone] [facility] [address] [place] [address], [place] [phone] * (ABNORMAL) Lipid Panel (06/25/2024 4:34 PM EDT) Total Cholesterol 203(H) 100 - 199 mg/dL [facility] Triglycerides 125 0 - 149 mg/dL [facility] HDL Cholesterol 52 >39 mg/dL [facility] VLDL Cholesterol Rom 22 5 - 40 mg/dL [facility] LDL Chol Calc (NIH) 129(H) 0 - 99 mg/dL [facility] Blood 06/25/2024 4:34 PM EDT 06/25/2024 Narrative [facility] (AMBULATORY) - 06/26/2024 6:36 AM EDT Performed at: 01 - [address] [phone] Support Representative: Michael Martinez PhD, Phone: [phone] us Uriel Russ MD LAB BLOOD ORDERABLES Final Resu lt [facility] (AMBULATORY) [address] [place] [address], [facility] [address] [place] [address], * US Ob Limited 1 + Fetuses (06/25/2024 3:10 PM EDT) Anatomical Region Laterality Modality Body Ultrasound 06/25/2024 3:54 PM EDT Narrative 06/26/2024 1:34 PM EDT PAT NAME: CAROLE GIRARD MED REC#: [id number] DA: 1990 PAT GEND: F PAT TYPE: O EXAM TRAVIS: [id number] REF PHYS URIEL RUSS Indication ======== Heart [...] clinically indicated for the condition being monitored. Field Marketing Associate: RT Annetta Bruno, [facility] Physician: Uriel Russ II, MD, FACOG Electronically signed by: Uriel Russ II, MD, FACOG at: 13:34 Procedure Note Uriel Russ MD - 06/26/2024 PAT NAME: CAROLE GIRARD MED REC#: [id number] DA: 1990 PAT GEND: F PAT TYPE: O EXAM TRAVIS: [id number] REF PHYS URIEL RUSS Indication ======== Heart Tones Comparison Studies The findings of this study are compared to the prior ultrasound studydated 05/27/2024 Method ======= Transabdominal ultrasound examination. View: Suboptimal view: limited byfetal position ========= Love . Number of fetuses: 1 Dating ====== Method of dating:based on stated DUSTY GA by prior [id number] w + 2 d DUSTY by prior assessment:12/01/2024 Previous dating:based on stated DUSTY, selected on 05/27/2024 Agreed DUSTY of previous datin12/01/2024 Assigned:based on stated DUSTY, selected on 06/25/2024 Assigned [id number] w + 2 d Assigned DUSTY:12/01/2024 [id number] d General Evaluation Cardiac activity present. FHR 150 bpm. movements visualized. Presentation variable. Placenta Placental site: anterior. Amniotic fluid Amount of AF: normal. MVP 2.7 cm. Maternal Structures Uterus / Cervix Cervical .1 mm Impression heart tones 150. 17 weeks 2 days. EDC 12/01/2024. Single fetus.Cervical length 33 mm. Recommendation Follow-up scan as clinically indicated for the condition beingmonitored. Field Marketing Associate: RT Annetta Bruno, [facility] Physician: Uriel Russ II, MD, FACOG Electronically signed by: Uriel Russ II, MD, FACOG at: :34 Uriel Russ MD [facility] US ORDERABLES Final Result * Hepatitis C Antibody (04/12/2024) Hep C Virus Ab negative Blood us Historical Provider LAB BLOOD ORDERABLES Lena l Result from Last 3 Months or Most Recently Relevant to Health Maintenance Insurance [employer] [facility] Care Teams Exhibition Specialist Relationship Specialty Start Date End Date Norma Friedman APRN [address] [place] [place] APPIAH [address] PCP - General Family Medicine 05/14/24
--- OUTSIDE RECORDS SUMMARY | 2024-09-11 10:51 | XMS_ITS | Encounter Summary ---
[facility] Address [address] [place] [id number] Care Team Providers Care Ocean Freight Manager Name Role Phone IvyKade goldbergjoseseven JOLENE Primary Care Provider + [phone] Encounter Details Date Type Department Care Team (Late st Contact Info) Description 07/25/2024 Patient Outreach [facility]OR DELIVERY [address] [place] [id number] Christy Zabala, RN Social History Tobacco Use Types Packs/Day Years Used Date Smoking Tobacco: Never Smokeless Tobacco: Never Alcohol Use Standard Drinks/Week Comments Never 0 (1 standard drink = 0.6 oz pur e alcohol) [facility] Utilities Answer Date Recorded In [...] and heating? Not hard at all 05/28/2024 [facility] [place] of Occupat ional Health - Occupational Stress [...] 01/20/2025 3:30 PM EST Office Visit [facility] GASTROENTEROLOGY [address] [address] Robbin Escalante MD [address] [place] [address] [place] [address] documented as of this encounter Visit Diagnoses Not on filedocumented in this encounter Additional Health Concerns Assessment Noted Time PHQ-2 Depression Total Score: 2 05/28/19 25 4:39 PM EDT documented as of this encounter Care Teams Ocean Freight Manager Relationship Specialty Start Date End Date Norma Friedman APRN [address] [place] [address] [place] [address] PCP - General Family Medicine 05/14/24 documented as of this encounter
--- OUTSIDE RECORDS SUMMARY | 2024-09-11 10:51 | XMS_ITS | Encounter Summary ---
Author Organization [employer] ([place], [place], [place], [place]) Address [address] [place] [address] Care Team Providers Care Motel Manager Name Role Phone Unavailable Primary Care Provider Unavailabl e Encounter Details Date Type Department Care Team (Late st Contact Info) Description 07/17/2019 Transcribed Document [facility] Family Medicine [address] [place] [address] ProviderEleno MD [address] [place], [place] [id number] Social History Tobacco Use Types Packs/Day Years [...] On: 07/17/2019 19:17 EDT by KARLENE MCKINLEY meat pumper Process Patient Disposition : AMA/Elope/LWBS KARLENE MCKINLEY [...]
--- OUTSIDE RECORDS SUMMARY | 2024-09-11 10:51 | XMS_ITS | Referral Summary ---
Author Organization [employer] ([place], [place], [place], [place]) Address [address] [place] [address] Care Team Providers Care Sap Pi Architect Name Role Phone Unavailable Primary Care Provider [...]
--- OUTSIDE RECORDS SUMMARY | 2024-09-11 10:52 | XMS_ITS | Encounter Summary ---
Author Organization [facility] Address [address] [place] [id number] Care Team Providers Care Experimental Aircraft Mechanic Name Role Phone Ivyashlyn Norma FERNÁNDEZ Primary Care Provider + [phone] Encounter Details Date Type Department Care Team (Late st Contact Info) Description 08/28/2024 Telephone [facility] OBGYN [address] [address] Staci Jain MD [address] [place] [id number] Social History Tobacco Use Types Packs/Day Years Used Date Smoking Tobacco: Never Smokeless Tobacco: Never Alcohol Use Standard Drinks/Week Comments Never 0 (1 standard drink = 0.6 oz pur e alcohol) [facility] Utilities Answer Date Recorded In the past 12 months has [employer], gas, oil, or water [facility] threatened to shut off services in your [...] heating? Not hard at all 05/28/2024 [facility] of Occupat ional Health - Occupational Stress [...] GED or equivalent No 05/28/2024 Preferred Language Indian 05/28/2024 PHQ-2 Answer Date Recorded Patient Health [...] sit with a family member admitted to [facility] today and does not know if she can make it back for labs (BMP). She does have an appt in [facility] at 10 am tomorrow. Advisedthat it would [...] states she was supposed to come into [facility] office today to have labs drawn however [facility]is currently hung [facility] is wondering if she could just have labs drawn there? documented in this encounter Plan of Treatment Upcoming Encounters Date Type Department Care Team (Late st Contact Info) Description 01/20/2025 3:30 PM EST Office Visit [facility] GASTROENTEROLOGY [address] [facility] [address] [place] [address] Robbin Escalante MD [address] [facility] [address] [place] [address] documented as of this encounter Visit Diagnoses Not on filedocumented in this encounter Additional Health Concerns Assessment Noted Time PHQ-2 Depression Total Score: 2 05/28/19 25 4:39 PM EDT documented as of this encounter Care Teams Experimental Aircraft Mechanic Relationship Specialty Start Date End Date Norma Friedman APRN [address] [place] [address] [place] [address] PCP - General Family Medicine 05/14/24 documented as of this encounter
--- OUTSIDE RECORDS SUMMARY | 2024-09-11 10:52 | XMS_ITS | Encounter Summary ---
[facility] Address [address] [place] [phone] Care Team Providers Care Sterile Processing Manager Name Role Phone IvyKade goldbergjoseseven JOLENE Primary Care Provider + [phone] Encounter Details Date Type Department Care Team (Late st Contact Info) Description 09/03/2024 Results Follow-Up [facility] OBGYN [address] [place] [address] Staci Jain MD [address] [facility] [address] [place] [address] Social History Tobacco Use Types Packs/Day Years Used Date Smoking Tobacco: Never Smokeless Tobacco: Never Alcohol Use Standard Drinks/Week Comments Never 0 (1 standard drink = 0.6 oz pur e alcohol) [facility] Utilities Answer Date Recorded In the past 12 months has [employer], gas, oil, or water [employer] threatened to shut off services in your [...] heating? Not hard at all 05/28/2024 [facility] of Occupat ional Health [...] Office Visit [facility] GASTROENTEROLOGY [address] [address] Robbin Escalante MD [address] [address] documented as of this encounter Visit Diagnoses Not on filedocumented in this encounter Additional Health Concerns Assessment Noted Time PHQ-2 Depression Total Score: 2 05/28/19 4:39 PM EDT documented as of this encounter Care Teams Sterile Processing Manager Relationship Specialty Start Date End Date Norma Friedman APRN [address] [place] [address] [place] [address] PCP - General Family Medicine 05/14/24 documented as of this encounter
--- OUTSIDE RECORDS SUMMARY | 2024-09-11 10:52 | XMS_ITS | Encounter Summary ---
[facility] Address [address] [place] [address] Care Team Providers Care Core Extruder Name Role Phone Elder Norma FERNÁNDEZ Primary Care Provider + [phone] Encounter Details Date Type Department Care Team (Latest Contact Info) Description 08/19/2024 Travel Social History Tobacco Use Types Packs/Day Years Used Date Smoking Tobacco: Never Smokeless Tobacco: Never Alcohol Use Standard Drinks/Week Comments Never 0 (1 standard drink = 0.6 oz pur e alcohol) [facility] Utilities Answer Date Recorded In the past 12 months has [employer] electric, gas, oil, or water company [...] and heating? Not hard at all 05/28/2024 [facility] [place] of Occupat ional Health - Occupational Stress [...] 2:34 PM EDT Nneka Cross RN * [place] Suicide Severity Rating Scale (Screener/Recent Self-Report) Question Answer Date of Assessment Author 6. Suicidal Behavior (Lifetime) No 2:34 PM EDT Nneka Cross RN documented as of this encounter Plan of Treatment Upcoming Encounters Date Type Department Care Team (Late st Contact Info) Description 01/20/2025 3:30 PM EST Office Visit [facility] GASTROENTEROLOGY [address] [address] Robbin Escalante MD [address] [address] documented as of this encounter Visit Diagnoses Not on filedocumented in this encounter Additional Health Concerns Assessment Noted Time PHQ-2 Depression Total Score: 2 05/28/19 25 4:39 PM EDT documented as of this encounter Care Teams Core Extruder Relationship Specialty Start Date End Date Norma Friedman APRN [address] [place] [address] [place] [address] PCP - General Family Medicine 05/14/24 documented as of this encounter
--- OUTSIDE RECORDS SUMMARY | 2024-09-11 10:52 | XMS_ITS | Encounter Summary ---
[facility] Organization [facility] Address [address] [place] [phone] Care Team Providers Care Wildlife Rehabilitator Name Role Phone Ivyashlyn Norma FERNÁNDEZ Primary Care Provider + [phone] Encounter Details Date Type Department Care Team (Late st Contact Info) Description 09/02/2024 Telephone [facility] OBGYN [address] [address] Staci Jain MD [address] [place] [id number] Social History Tobacco Use Types Packs/Day Years Used Date Smoking Tobacco: Never Smokeless Tobacco: Never Alcohol Use Standard Drinks/Week Comments Never 0 (1 standard drink = 0.6 oz pur e alcohol) [facility] Utilities Answer Date Recorded In the past 12 months has [employer], [employer], oil, or water [employer] threatened to shut off services in [...] GED or equivalent No 05/28/2024 Preferred Language Italian 05/28/2024 PHQ-2 Answer Date Recorded Patient Health [...] PM EDT She just got d/c'd from [facility] 2 hours ago and they gave her a total 10 MLE of K+ and 3 units of Mag and 2 liters of LR. She has decided to transfer care to [facility] as it iscloser to her like 15 min away. She wants you (Dr. Jain) to know this has nothing to you but rather the nurses and master of ceremonies doctor did not relay the labs to you in a faster fashion. She said you can call her if you want and she is not angry. Dr. Jain was notified. * Telephone Encounter - Frederick Gruber RN - 09/02/2024 3:10 PM EDT [employer] message sent to the pt regarding outpt infusion apt tomorrow at [place]. documented in this encounter Plan of Treatment Upcoming Encounters Date Type Department Care Team (Late st Contact Info) Description 01/20/2025 3:30 PM EST Office Visit [facility] GASTROENTEROLOGY [address] [place] [address] [place] [address] Robbin Escalante MD [address] [facility] [address] [place] [address] documented as of this encounter Visit Diagnoses Not on filedocumented in this encounter Additional Health Concerns Assessment Noted Time PHQ-2 Depression Total Score: 2 05/28/19 25 4:39 PM EDT documented as of this encounter Care Teams Wildlife Rehabilitator Relationship Specialty Start Date End Date Norma Friedman APRN [address] [place] [address] [place] [address] PCP - General Family Medicine 05/14/24 documented as of this encounter
--- OUTSIDE RECORDS SUMMARY | 2024-09-11 10:52 | XMS_ITS | Encounter Summary ---
[facility] Address [address] [place] [address] Care Team Providers Care Supervisor Central Supply Name Role Phone Norma Friedman APRN Primary Care Provider + [phone] Encounter Details Date Type Department Care Team (Late st Contact Info) Description 08/19/2024 Telephone [facility] OBGYN [address] [place] [address] Jacey Mathews, HOUSING QUALITY STANDARD INSPECTOR [address] [facility] [address] [place] [address] Social History Tobacco Use Types Packs/Day Years Used Date Smoking Tobacco: Never Smokeless Tobacco: Never Alcohol Use Standard Drinks/Week Comments Never 0 (1 standard drink = 0.6 oz pur e alcohol) [facility] Utilities Answer Date Recorded In the past 12 months has [employer], [employer], oil, or water [employer] threatened to shut off services in [...] and heating? Not hard at all 05/28/2024 [facility] of Occupat ional [facility] - Occupational Stress Questionnaire Answer [...] GED or equivalent No 05/28/2024 Preferred Language Micronesian 05/28/2024 PHQ-2 Answer Date Recorded Patient Health [...] Office Visit [facility] GASTROENTEROLOGY [address] [address] Robbin Escalante MD [address] [address] documented as of this encounter Visit Diagnoses Not on filedocumented in this encounter Additional Health Concerns Assessment Noted Time PHQ-2 Depression Total Score: 2 05/28/19 25 4:39 PM EDT documented as of this encounter Care Teams Supervisor Central Supply Relationship Specialty Start Date End Date Norma Friedman APRN [address] [place] [address] [place] [address] PCP - General Family Medicine 05/14/24 documented as of this encounter
--- OUTSIDE RECORDS SUMMARY | 2024-09-11 10:52 | XMS_ITS | Encounter Summary ---
[facility] Address [address] [place] [phone] Care Team Providers Care Bleaching Machine Operator Name Role Phone Ivyashlyn Valentinoseven JOLENE Primary Care Provider + [phone] Encounter Details Date Type Department Care Team (Late st Contact Info) Description 06/26/2024 Results Follow-Up [facility] OBGYN [address] [address] Koby Roberts MD [address] [place] [address] Social History Tobacco Use Types Packs/Day Years Used Date Smoking Tobacco: Never Smokeless Tobacco: Never Alcohol Use Standard Drinks/Week Comments Never 0 (1 standard drink = 0.6 oz pur e alcohol) [facility] Utilities Answer Date Recorded In the past 12 months has [employer], gas, oil, or water [employer] threatened to shut off services in your [...] hard at all 05/28/2024 [facility] of Occupat ional Health - Occupational Stress [...] [facility] [address] [facility] [address] Robbin Escalante MD [address] [address] documented as of this encounter Visit Diagnoses Not on filedocumented in this encounter Additional Health Concerns Assessment Noted Time PHQ-2 Depression Total Score: 2 05/28/19 25 4:39 PM EDT documented as of this encounter Care Teams Bleaching Machine Operator Relationship Specialty Start Date End Date Norma Friedman APRN [address] [place] [address] [place] [address] PCP - General Family Medicine 05/14/24 documented as of this encounter
--- OUTSIDE RECORDS SUMMARY | 2024-09-11 10:52 | XMS_ITS | Encounter Summary ---
[facility] Organization [facility] Address [address] [place] [address] Care Team Providers Care Youth Development Professional Name Role Phone Elder Norma FERNÁNDEZ Primary Care Provider + [phone] Encounter Details Date Type Department Care Team (Latest Contact Info) Description 07/22/2024 Travel Social History Tobacco Use Types Packs/Day Years Used Date Smoking Tobacco: Never Smokeless Tobacco: Never Alcohol Use Standard Drinks/Week Comments Never 0 (1 standard drink = 0.6 oz pur e alcohol) [facility] Utilities Answer Date Recorded In the past 12 months has [employer] electric, gas, oil, or water company [...] at all 05/28/2024 [employer] [place] of Occupat ional Health - Occupational Stress [...] Office Visit [facility] GASTROENTEROLOGY [address] [facility] [address] [place] [address] Robbin Escalante MD [address] [facility] [address] [place] [address] documented as of this encounter Visit Diagnoses Not on filedocumented in this encounter Additional Health Concerns Assessment Noted Time PHQ-2 Depression Total Score: 2 05/28/19 25 4:39 PM EDT documented as of this encounter Care Teams Youth Development Professional Relationship Specialty Start Date End Date Norma Friedman APRN [address] [place] [address] [place] [address] PCP - General Family Medicine 05/14/24 documented as of this encounter
--- OUTSIDE RECORDS SUMMARY | 2024-09-11 10:52 | XMS_ITS | Encounter Summary ---
Author Organization [facility] Address [address] [place] [address] Care Team Providers Care Csm Consultant Name Role Phone Unavailable Primary Care Provider Unavailabl e Encounter Details Date Type Department Care Team (Late st Contact Info) Description 07/22/2024 [facility] [address] [place] [address] Sandy Cardenas MD [address] [facility] [address] [place] [id number] Social History Tobacco Use Types Packs/Day Years [...]
--- NOTE | 2024-09-11 11:07 | ECG_ITS ---
APPROVED REPORT Exam: Resting ECG HR:73 bpm ECG Measurements Heart Rate 73 AXES MT 157 P 46 QRSd 83 QRS 18 QT 372 T 9 QTc 397 Conclusion SINUS RHYTHM NORMAL ECG UNCONFIRMED REPORT Electronically signed by : Martín Gonsales MD 09/12/2024 09:01:30
--- NOTE | 2024-09-11 11:18 | EXP.ANES.CKL ---
[facility] Disclaimer: The information contained in this section may have been updated after the patient was seen, as this information can be updated by other users. Medical History Normal esophagogastroduodenoscopy (EGD) Vaginal discharge UTI (urinary tract infection) UTI (urinary tract infection) Subchorionic hematoma Patient left without being seen Vaginal spotting Bilateral ovarian cysts Vulvar lesion Lower abdominal pain Traumatic iritis Corneal abrasion Subconjunctival hemorrhage Bright red blood per rectum Hematemesis Obstipation Irregular bowel habits Dyspepsia Generalized abdominal pain Early satiety Bloating Back pain Abdominal pain Low back ache Acute viral syndrome Gastroenteritis Dehydration Hypocalcemia Missed GERD (gastroesophageal reflux disease) Grand multipara History of recurrent miscarriages History of miscarriage, currently History of anemia Urinary tract infection History of gastroesophageal reflux (GERD) Endometriosis Dysmenorrhea Menorrhagia History of miscarriage History of fainting History of heavy periods Surgical History History of tympanostomy tube placement History of section Hx of section Family History Family history of diabetes mellitus type II Family history of myocardial infarction Social History (Updated 09/10/24 @ 17:13 by Brigitte Bryant RN) Smoking Status: Never smoker alcohol intake: never substance use type: denies use current occupational status: unemployed Travel in the last 8 weeks?: None household members: spouse housing: house current occupation: [employer] Have you lived/traveled outside US in past 30 days?: No Contact w/someone who lives/traveled outside US past 30 days?: No Exposure to someone with infectious disease in past 14 days?: No Do you have a fever (greater than 100.4 F or 38 C)?: No Have you tested positive for COVID-19?: No Exposed to someone with COVID-19 in past 14 days?: No Do you have a sore throat?: No Do you have a cough?: No Do you have any weakness?: No Are you experiencing any nausea/vomitting?: No Do you have any diarrhea?: No Are you experiencing any unusual bleeding?: No Do you have any muscle aches/pain?: No Do you have any abdominal pain?: No Are you experiencing loss of taste or smell?: No [facility] Anesthesia Checklist Patient Identification Patient Identification: Arm Band Structural Data Admitted From: Home Planned Operative Procedure/s: I&D Vaginal Abscess Consent for Planned Operative Procedure(s) Verified: Yes Verified Documents: Surgical Consent and History and Physical NPO Status Verified Time NPO: 00:00 Additional verifications Anesthesia Reactions: No Hx Blood Transfusions: Yes Blood Transfusion Reaction: No Airway Assessment Mallampati Score:: Class II C-Spine Mobility Assessed: Yes TMJ Mobility Assessed: Yes Dentition: Good Dentition Neurological Assessment Level of Consciousness: Awake, Alert and Appropriate Anesthesia Plan Anesthesia Risk discussed: Yes Anesthesia Plan: Verified ASA Class: II Anesthesia Type: Spinal Preoperative Comments Pre-Operative Comments: Discussed anesthesia options with pt and decision made to proceed with SAB. Pt understands that she will be awake during procedure and that this option is safest for mother and fetus.
--- NOTE | 2024-09-11 11:21 | XR_ITS ---
FINAL REPORT TECHNIQUE: Single view chest CLINICAL HISTORY: PICC line placement verification FINDINGS: A single view of the chest was obtained. There is a left PICC with the tip in the SVC. The heart and mediastinum are within normal limits. The lungs are underinflated but clear. There is no pneumothorax. IMPRESSION: Left PICC with the tip in the SVC. Reviewed, Interpreted and Dictated by Jorge Shah MD Transcribed by Elizabeth Pascual Authenticated and . [facility]
[2024-09-11 11:26] VITALS: BP 99/57; PULSE 75; RESP 16; TEMP 36.7; O2SAT 100
[2024-09-11] MEDS: LACTATED RINGERS 1000ML 1,000 ML 999 ML IV (16:00)
[2024-09-11] MEDS: ePHEDrine SULF 50MG/ML VIAL 10 MG IV (16:02)
[2024-09-11] MEDS: CALCIUM CARBONATE 500MG CHEWTAB 1000 MG PO (19:16)
[2024-09-11 20:00] VITALS: PULSE 85
[2024-09-11 20:45] VITALS: BP 107/54; PULSE 93; RESP 16; TEMP 36.8; O2SAT 98
[2024-09-11] MEDS: POTASSIUM CHLORIDE 20MEQ TAB 20 MEQ PO (21:48)
[2024-09-11] MEDS: FERROUS SULFATE 325MG TABLET 325 MG PO (21:48)
[2024-09-11] MEDS: OXYCODONE 5MG IMMEDIATE RELEASE TABLET 10 MG PO (23:21)
[2024-09-11 23:32] VITALS: BP 95/51; PULSE 88; RESP 16; TEMP 36.6; O2SAT 98
[2024-09-12] VITALS: PULSE 90
[2024-09-12] MEDS: CALCIUM CARBONATE 500MG CHEWTAB 1000 MG PO ×4 (02:53→15:23)
[2024-09-12] MEDS: PROMETHAZINE HCL 25MG/ML 1ML VIAL 12.5 MG IV ×4 (02:53→15:22)
[2024-09-12] MEDS: OXYCODONE 5MG IMMEDIATE RELEASE TABLET 5 MG PO ×2 (03:18→04:18)
[2024-09-12 04:00] VITALS: BP 94/52; PULSE 80; RESP 18; TEMP 36.8; O2SAT 99
[2024-09-12] MEDS: LACTATED RINGERS 1000ML 1,000 ML 125 ML IV (04:00)
[2024-09-12] MEDS: ONDANSETRON 4MG/2ML VIAL 4 MG IV (06:05)
[2024-09-12 06:11] LABS: Chloride 108 mmol/L (98-107)
[2024-09-12 06:12] LABS: Albumin Level 2.6 g/dl (3.5-5.0); Potassium 3.4 mmoL/L (3.5-5.1); Sodium 133 mmol/L (136-145)
[2024-09-12 06:14] LABS: Anion Gap 5.4 mEq/L (5-15); Carbon Dioxide 23 mmol/L (22.0-30.0); Creatinine Clearance Estimated 183 mL/min (50-200); Creatinine,Serum 0.50 mg/dl (0.52-1.04); Estimated Glomerular Filt Rate 142 ml/min (>60); GFR (African American) 172 ML/MIN (>60)
[2024-09-12 06:15] LABS: Alanine Aminotransferase 10 U/L (12-78); Albumin/Globulin Ratio 1.0 (1.1-1.8); Alkaline Phosphatase 66 U/L (38-126); Aspartate Amino Transferase 21 U/L (14-36); Bilirubin,Total 0.2 mg/dl (0.2-1.3); Calcium 7.5 mg/dl (8.4-10.2); Globulin 2.7 g/dL (1.3-3.2); Glucose 74 mg/dl (74-100); Magnesium 1.8 mg/dl (1.6-2.3); Total Protein,Serum 5.3 g/dl (6.3-8.2)
[2024-09-12 06:29] LABS: Blood Urea Nitrogen < 2 mg/dl (7-17)
[2024-09-12] MEDS: FERROUS SULFATE 325MG TABLET 325 MG PO (08:23)
[2024-09-12] MEDS: POTASSIUM CHLORIDE 20MEQ TAB 20 MEQ PO (08:23)
[2024-09-12] MEDS: OXYCODONE 5MG IMMEDIATE RELEASE TABLET 10 MG PO ×3 (08:23→15:24)
[2024-09-12] MEDS: CLINDAMYCIN PHOSPHATE/D5W 900 MG/50 ML PIGGYBACK 100 MG IV ×2 (08:23→16:17)
[2024-09-12] MEDS: MVI, ADULT NO.1 WITH VIT K 10 ML, THIAMINE HCL 100 MG, MAGNESIUM SULFATE 2 GM in LACTAT... 125 ML IV (09:08)
--- NOTE | 2024-09-12 09:12 | EXP.DC.SUM ---
General Admission date:: 09/10/24 Discharge date: 09/12/24 HPI HPI HPI: She is a 34-year-old 9 para 5 aborta 3 who is 28 weeks gestational age. She started having some discomfort last night and today it is exquisitely tender. She has pain along the anterior vaginal wall and says she feels a bulge there. She tried treating it with some yeast cream but it did not help. She is also known to be hypokalemic and has severe hypokalemia requiring replacement every couple of days. She has hypomagnesemia as well. Hospital Course Hospital Course Hospital Course: She was admitted overnight and started on IV clindamycin 900 mg every 8 hours. She also received 80 mEq of IV potassium as well as 6 g of IV magnesium. Her potassium morales to 4.1 after the infusion yesterday and today her potassium is dropped to 3.4. Her magnesium is 1.6 today. She also has had low blood pressure postsurgery. When she is lying in bed her pressures were on 80-90/40-50. She is not symptomatic with respect to this. Her blood pressures normally run around 100/60. Her hemoglobin has dropped from 10-9.1 and I suspect this is dilutional. It is not microcytic anemia. Yesterday since she had this grape sized anterior vaginal wall abscess, we took her to the operating room for examination under anesthesia and incision and drainage of this abscess. We used spinal anesthesia for this. During the operation it was noted that there was just induration along the anterior abdominal wall and we suspected that she had spontaneously drained the abscess overnight. As result of that I did not open up the anterior vaginal wall. All I could feel was some induration. This morning she says that she still has pain in the vagina but I did a gentle examination of the anterior vaginal wall and there is still a small amount of induration but no large abscess. She is still receiving IV clindamycin. Given her severe hypokalemia and the possibility of Bartter syndrome I have spoken with Dr. Liborio Weller at high risk. We will plan to transfer her there today for definitive diagnosis. She has had a PICC line inserted and we will plan to continue to treat her hypokalemia as an outpatient at the infusion clinics here. I suspect she may need infusions 3 or 4 times a week. Will plan to transfer her by ambulance to . Exam Data for Last 24 hours Vital signs and Labs for Last 24 Hours: Temp Pulse Resp BP Pulse Ox O2 Del Method 98.2 F 80 18 94/52 L 99 Room Air 09/12/24 04:00 09/12/24 04:00 09/12/24 04:00 09/12/24 04:00 09/12/24 04:00 09/12/24 04:00 Laboratory Results - last 24 hr 09/12/24 04:33: Sodium 133 L, Potassium 3.4 L, Chloride 108 H, Carbon Dioxide 23, Anion Gap 5.4, BUN < 2 L, Creatinine 0.50 L, Estimated Creat Clear 183, Estimated GFR 142, Est GFR ( Amer) 172, Glucose 74, Calcium 7.5 L, Magnesium 1.8 D, Total Bilirubin 0.2, AST 21, ALT 10 L D, Alkaline Phosphatase 66, Total Protein 5.3 L, Albumin 2.6 L, Globulin 2.7, Albumin/Globulin Ratio 1.0 L I & O for Last 24 hours: Intake & Output 09/09/24 09/10/24 09/11/24 09/12/24 11:59 11:59 11:59 11:59 Output Total 1600 / 1600 Balance -1600 / -1600 Weight 160 lb Microbiology Reports for the Last 24 Hours: Microbiology 09/10/24 20:45 Urine,Clean Catch Urine Culture - Final No growth. Constitutional Constitutional: no acute distress *Routine HEENT Exam Head: Present normocephalic *Routine Neck Exam Neck: Present full ROM *Routine Respiratory Exam Respiratory: Present normal respiratory effort; Absent accessory muscle use Results Data Completed and Pending Labs on day of discharge: Labs from last 24 hours 09/12/24 04:33 Sodium 133 L Potassium 3.4 L Chloride 108 H Carbon Dioxide 23 Anion Gap 5.4 BUN < 2 L Creatinine 0.50 L Estimated Creat Clear 183 Estimated GFR 142 Est GFR ( Amer) 172 Glucose 74 Calcium 7.5 L Magnesium 1.8 D Total Bilirubin 0.2 AST 21 ALT 10 L D Alkaline Phosphatase 66 Total Protein 5.3 L Albumin 2.6 L Globulin 2.7 Albumin/Globulin Ratio 1.0 L DS: Diagnosis Discharge Diagnosis (1) Abscess of vagina: Status: Acute Code(s): N76.0 - Acute vaginitis (2) Hypomagnesemia: Status: Acute Code(s): E83.42 - Hypomagnesemia (3) Vomiting affecting : Status: Acute Code(s): O21.9 - Vomiting of , unspecified (4) Hypokalemia: Status: Acute Code(s): E87.6 - Hypokalemia Meds Home Medications and Allergies Home Medications ?Medication ?Instructions ?Recorded ?Confirmed ?Type omeprazole 20 mg capsule,delayed 20 mg PO DAILY 09/02/24 09/10/24 History release vit no.95-ferrous 1 tab PO DAILY 09/02/24 09/10/24 History fumarate 28 mg-folic acid 800 mcg tablet () thiamine HCl (vitamin B1) 100 mg 100 mg PO DAILY 09/02/24 09/10/24 History tablet potassium chloride 20 mEq 40 meq (2 x 20 mEq) PO BID 5 days 09/05/24 09/10/24 Rx tablet,extended #20 tabs release(part/cryst) (Klor-Con M) New Prescriptions to Start Prescriptions: Allergies Allergy/AdvReac Type Severity Reaction Status Date / Time peanut Allergy Severe Hives Verified 09/10/24 14:31 Discharge Plan Disposition Patient Disposition: Xfer Short-Term Hosp Discharge Order Discharge Orders: Discharge Order (Routine); Ordered 09/12/24 Ordered By: Boby Ramon Follow up Plan Prescriptions/Medication Reconciliation: Continued potassium chloride [Klor-Con M20] 20 mEq tablet,ER particles/crystals 40 meq PO BID 5 Days Qty: 20 0RF omeprazole 20 mg Capsule,Delayed Release(Dr/Ec) 20 mg PO DAILY thiamine HCl (vitamin B1) 100 mg tablet 100 mg PO DAILY PNV no.95-ferrous fumarate-FA [] 28 mg iron- 800 mcg Tablet 1 tab PO DAILY Problem Reconciliation Problems Reviewed?: Yes Patient Discharge Instructions ACTIVITY: Bed rest DIET: continue same diet Print Language: Solomon Islander Providers Primary Care Provider: Norma Friedman Admit Provider: Boby Ramon Attending Provider: Boby Ramon
--- NOTE | 2024-09-12 09:20 | PC.NURSE ---
Laboratory Tests 09/10/24 09/10/24 09/11/24 16:00 20:45 05:24 WBC 10.2 RBC 3.08 L Hgb 9.1 L Hct 27.1 L MCV 88.0 MCH 29.5 MCHC 33.6 RDW 14.2 Plt Count 213 MPV 11.5 H Neut % (Auto) 72.8 Lymph % (Auto) 18.5 Boyd % (Auto) 7.6 Eos % (Auto) 0.7 Baso % (Auto) 0.1 Neut # (Auto) 7.4 Lymph # (Auto) 1.9 Boyd # (Auto) 0.8 Eos # (Auto) 0.1 Baso # (Auto) 0.0 Sodium 131 L 136 Potassium 2.7 L* 4.1 D Chloride 104 109 H Carbon Dioxide 25 21 L Anion Gap 4.7 L 10.1 BUN 3 L < 2 L D Creatinine 0.40 L 0.50 L D Estimated Creat Clear 229 183 Estimated GFR 184 142 Est GFR ( Amer) 222 D 172 D Glucose 91 62 L D Calcium 8.7 8.2 L Magnesium 1.4 L 2.5 H D Total Bilirubin 0.3 AST 24 ALT 16 Alkaline Phosphatase 78 Total Protein 6.4 Albumin 2.7 L Globulin 3.7 H Albumin/Globulin Ratio 0.7 L Urine Color Yellow Urine Appearance Turbid Urine pH 8.5 Ur Specific [place] 1.010 Urine Protein Negative Urine Glucose (UA) Negative Urine Ketones Negative Urine Blood Trace-l Urine Nitrate Negative Urine Bilirubin Negative Urine Urobilinogen 0.2 Ur Leukocyte Esterase 2+ A Urine RBC 3-5 Urine WBC 5-10 Ur Squamous Epith Cells Occasional Amorphous Sediment 2+ Urine Bacteria 2+ 09/12/24 04:33 WBC RBC Hgb Hct MCV MCH MCHC RDW Plt Count MPV Neut % (Auto) Lymph % (Auto) Boyd % (Auto) Eos % (Auto) Baso % (Auto) Neut # (Auto) Lymph # (Auto) Boyd # (Auto) Eos # (Auto) Baso # (Auto) Sodium 133 L Potassium 3.4 L Chloride 108 H Carbon Dioxide 23 Anion Gap 5.4 BUN < 2 L Creatinine 0.50 L Estimated Creat Clear 183 Estimated GFR 142 Est GFR ( Amer) 172 Glucose 74 Calcium 7.5 L Magnesium 1.8 D Total Bilirubin 0.2 AST 21 ALT 10 L D Alkaline Phosphatase 66 Total Protein 5.3 L Albumin 2.6 L Globulin 2.7 Albumin/Globulin Ratio 1.0 L Urine Color Urine Appearance Urine pH Ur Specific [place] Urine Protein Urine Glucose (UA) Urine Ketones Urine Blood Urine Nitrate Urine Bilirubin Urine Urobilinogen Ur Leukocyte Esterase Urine RBC Urine WBC Ur Squamous Epith Cells Amorphous Sediment Urine Bacteria
[2024-09-12 11:12] LABS: Potassium, Urine 20.7 mmol/L (Not Estab.)
[2024-09-12] MEDS: SODIUM CHLORIDE 0.9% 25ML BAG 25 ML IV ×2 (11:34→15:22)
--- NOTE | 2024-09-12 11:56 | EXP.ACUTE.PN ---
Subjective *Date: 09/12/24 *Time: 11:56 Interval history: I spoke to patient again later this morning and she was adamant that she could not go to today. She says that logistically she has problems with transportation, her children and other social issues. She said that she could go tomorrow as an outpatient. I told her that this would be fine. Medical Exam Vital signs and Labs for Last 24 Hours: Vital Signs Temp Pulse Pulse Resp BP Pulse Ox O2 Del Method 09/12/24 04:00 80 09/12/24 04:00 98.2 F 80 18 94/52 L 99 Room Air 09/12/24 00:00 90 09/11/24 23:32 97.9 F 88 16 95/51 L 98 Room Air 09/11/24 20:45 98.2 F 93 H 16 107/54 L 98 Room Air 09/11/24 20:00 85 Laboratory Results - last 24 hr 09/10/24 20:45: Urine Potassium 20.7 09/12/24 04:33: Sodium 133 L, Potassium 3.4 L, Chloride 108 H, Carbon Dioxide 23, Anion Gap 5.4, BUN < 2 L, Creatinine 0.50 L, Estimated Creat Clear 183, Estimated GFR 142, Est GFR ( Amer) 172, Glucose 74, Calcium 7.5 L, Magnesium 1.8 D, Total Bilirubin 0.2, AST 21, ALT 10 L D, Alkaline Phosphatase 66, Total Protein 5.3 L, Albumin 2.6 L, Globulin 2.7, Albumin/Globulin Ratio 1.0 L I & O for Labs for Last 24 Hours: Intake & Output 09/09/24 09/10/24 09/11/24 09/12/24 11:59 11:59 11:59 11:59 Output Total 1600 / 1600 Balance -1600 / -1600 Weight 160 lb Microbiology Reports for the Last 24 Hours: Microbiology 09/10/24 20:45 Urine,Clean Catch Urine Culture - Final No growth. Head: Present atraumatic Neck: Present normal inspection Respiratory: Present normal respiratory effort; Absent accessory muscle use Assessment and Plan *Assessment and plan (1) Abscess of vagina: Status: Acute Category: Medical Code(s): N76.0 - Acute vaginitis (2) Hypomagnesemia: Status: Acute Category: Medical Code(s): E83.42 - Hypomagnesemia (3) Vomiting affecting : Status: Acute Category: Medical Code(s): O21.9 - Vomiting of , unspecified (4) GERD (gastroesophageal reflux disease): Status: Acute Qualifiers: Esophagitis presence: without esophagitis Qualified Code(s): K21.9 - Gastro-esophageal reflux disease without esophagitis Category: Medical Code(s): K21.9 - Gastro-esophageal reflux disease without esophagitis (5) : Status: Acute Qualifiers: Weeks of gestation: 28 weeks Qualified Code(s): Z3A.28 - 28 weeks gestation of Category: Medical Code(s): Z34.90 - Encounter for supervision of normal , unspecified, unspecified trimester (6) Hypokalemia: Status: Acute Category: Medical Code(s): E87.6 - Hypokalemia Plan 1. We will plan to discharge her later today as planned. 2. We will give her 40 mEq IV of potassium prior to discharge. 3. We will have her see Dr. Weller at tomorrow. She will go to outpatient triage in labor and delivery. 4. We will continue to manage her potassium as often as necessary for the rest of her . 5. She will continue with her clindamycin p.o. for her vaginal abscess. It seems to have completely drained. I checked her this morning and there was just a small amount of induration in the anterior vaginal wall and it still quite tender. 6. She is anemic and I have ordered her iron tablets to take as well. 7. We will call her in a prescription for Percocet as well for her vaginal discomfort. 8. We will have her return on Monday for blood work and potassium replacement over the weekend.
--- NOTE | 2024-09-12 12:00 | P.OP_ITS ---
Date of procedure: 09/11/24 Pre-op Diagnosis:: Vaginal abscess Post-op Diagnosis:: Vaginal abscess Procedure performed:: Examination under Melvina. Surgeon:: Boby Ramon MD CARBON PAPER COATING MACHINE SETTER:: Abhinav Kam Anesthesia: spinal Estimated blood loss (mL): 0 Clinical Note:: She is a 34-year-old 9 para 5 aborta 3 who is 28 weeks gestational age. She was admitted with vaginal pain and known hypokalemia. On examination in the office she had a 3 cm firm, exquisitely tender abscess on the anterior vagina. As result of that she is admitted for pain relief, replacement of her potassium and drainage of this vaginal abscess. Operative findings:: On examination under spinal anesthesia in the operating room she just had some induration in the anterior vaginal wall. There was no evidence of the grape sized abscess that had been present the night before. She says that she may have drained it during the night because she had some whitish discharge. As result of that I elected to abandon the procedure. Operative note:: She was taken the operating room where spinal anesthesia was found to be adequate. She was prepped and draped in normal sterile fashion in the lithotomy position. A weighted speculum was placed in vagina and I completely examined the entire anterior vaginal wall. The only abnormality was some induration along the anterior vaginal wall but there is no evidence of a a persistent abscess. As result of that I elected to stop the procedure. She was taken to the recovery room in excellent condition. All sponge and instrument counts were correct at Condition: stable Disposition: PACU Specimens:: None Complications:: None
[2024-09-12 16:51] LABS: Albumin Level 2.8 g/dl (3.5-5.0); Chloride 106 mmol/L (98-107); Potassium 3.8 mmoL/L (3.5-5.1); Sodium 136 mmol/L (136-145)
[2024-09-12 16:54] LABS: Alanine Aminotransferase 12 U/L (12-78); Albumin/Globulin Ratio 1.0 (1.1-1.8); Alkaline Phosphatase 67 U/L (38-126); Anion Gap 7.8 mEq/L (5-15); Aspartate Amino Transferase 21 U/L (14-36); Bilirubin,Total 0.3 mg/dl (0.2-1.3); Calcium 7.8 mg/dl (8.4-10.2); Carbon Dioxide 26 mmol/L (22.0-30.0); Creatinine Clearance Estimated 183 mL/min (50-200); Creatinine,Serum 0.50 mg/dl (0.52-1.04); Estimated Glomerular Filt Rate 142 ml/min (>60); GFR (African American) 172 ML/MIN (>60); Globulin 2.8 g/dL (1.3-3.2); Glucose 75 mg/dl (74-100); Total Protein,Serum 5.6 g/dl (6.3-8.2)
[2024-09-12 16:59] LABS: Blood Urea Nitrogen < 2 mg/dl (7-17)
== END 2024-09-12 17:17 | disposition home or self-care (01) ==
PROVIDERS: Admitting Provider Nurse Practitioner Obstetrics & Gynecology; PCP Nurse Practitioner Family; Visit Provider Nurse Practitioner Obstetrics & Gynecology
PROC: (CPT 56405; principal; 2024-09-11 12:30)
DX: O99.891 Other specified diseases and conditions complicating pregnancy (principal); N76.0 Acute vaginitis; E83.42 Hypomagnesemia; O21.9 Vomiting of pregnancy, unspecified; E87.6 Hypokalemia; O99.613 Diseases of the digestive system complicating pregnancy, third trimester; K21.9 Gastro-esophageal reflux disease without esophagitis; Z95.828 Presence of other vascular implants and grafts; Z86.2 Personal history of diseases of the blood and blood-forming organs and certain disorders involving the immune mechanism; Z3A.28 28 weeks gestation of pregnancy; Z91.010 Allergy to peanuts; Z79.899 Other long term (current) drug therapy
CPT/HCPCS: 56405; 36415; 36569; 59025; 71045; 72195; 80048; 80053; 81001; 83735; 84133; 85025; 87086; 93005; 94761; 96361; 96365; 96366; 96367; 96375; 96376; C1751; G0378; J0665; J0736; J2003; J2004; J2405; J2550; J3411; J3475; J3480; J7120

== ENCOUNTER 2024-09-14 11:34 | Outpatient (CLI) | payer OTHER, SELFPAY ==
--- OUTSIDE RECORDS SUMMARY | 2024-07-22 07:44 | XMS_ITS | Encounter Summary ---
Author Organization [facility] Address [address] [place] [id number] Care Team Providers Care Blockers Skiver Name Role Phone Norma Friedman APRN Primary Care Provider + [phone] Reason for Referral * Diagnostic Imaging (Routine) - Closed Specialty Diagnoses / Procedures Referred By Tarik pedersen Referred To Contact Radiology Diagnoses care, antepartum, unspecified High risk due to history of labor, antepartum History of prior with small for gestational age Procedures [facility] Kelly Watkins APRN [address] [facility] [address] [place] [address] Phone: tel: fax: [facility] US PER DIAG CTR [address] [place] [address] Phone: tel: Referral ID Status Reason Start Date Expiration Date Visits Re quested Visits Authorized [id number] Closed 07/08/2024 10/07/2025 1 1 Reason for Visit * Diagnostic Imaging (Routine) - Closed Specialty Diagnoses / Procedures Referred By Tarik t Referred To Contact Radiology Diagnoses care, antepartum, unspecified High risk due to history of labor, antepartum History of prior with small for gestational age Procedures [facility] Kelly Watkins APRN [address] [facility] [address] [place] [address] Phone: tel: fax: [facility] US PER DIAG CTR [address] [place] [address] Phone: tel: Referral ID Status Reason Start Date Expiration Date Visits Re quested Visits Authorized [id number] Closed 07/08/2024 10/07/2025 1 1 Encounter Details Date Type Department Care Team (Late st Contact Info) Description 07/22/2024 7:44 AM EDT - 07/22/2024 11:59 PM EDT Hospital Encounter [facility] US PER DIAG [facility] [address] [place] [phone] Kelly Watkins, LITHOGRAPH PRESS FEEDER [address] [place] [address] care, antepartum, unspecified ; High risk due to history of labor, antepartum; History of prior with small for gestational age Discharge Disposition: Home or Self Care Social History Tobacco Use Types Packs/Day Years Used Date Smoking Tobacco: Never Smokeless Tobacco: Never Alcohol Use Standard Drinks/Week Comments Never 0 (1 standard drink = 0.6 oz pur e alcohol) [facility] Utilities Answer Date Recorded In the past 12 months has [employer] electric, gas, oil, or water [employer] threatened to shut off services in your [...] and heating? Not hard at all 05/28/2024 [facility] [place] of Occupat ional Health - Occupational Stress [...] GED or equivalent No 05/28/2024 Preferred Language Eritrean 05/28/2024 PHQ-2 Answer Date Recorded Patient Health [...] Description 01/20/2025 3:30 PM EST Office Visit [facility] [address] [address] Robbin Escalante MD [address] [address] documented as of this encounter Procedures Procedure Name Priority Date/Time Associated Diagnosis Comments [facility] Routine 07/22/2024 9:10 AM EDT care, antepartum, unspecified High risk due to history of labor, antepartum History of prior with small for gestational age documented in this encounter Results * [facility] (07/22/2024 9:10 AM EDT) Anatomical Region Laterality Modality Ultrasound 07/22/2024 8:20 AM EDT Narrative 07/22/2024 9:18 AM EDT PAT NAME: CAROLE GIRARD MED REC#: [id number] DA: 1990 PAT GEND: F PAT TYPE: O EXAM TRAVIS: [id number] REF PHYS KELLY WATKINS Comparison Studies There [...] EFW (oz) 13 oz EFW by: Hadlock (MXC-UC-UJ-FL) Extended Tibia 28.0 mm 20w 1d 17% Jamal Fibula 27.3 mm 19w 5d 17% Jamal Radius 26.9 mm 20w 0d 36% Jamal Ulna 30.0 mm 21w 1d 33% Jamal Cav. septi pel. tr 3.7 mm Concrete Batching Plant Operator 5.4 mm CM 4.7 mm 32% Nicolaides [...] normal IVC: normal 3-vessel view: Appears normal 3-urlrjv-mzmtbjn view: Appears normal Rt lung: Appears normal [...] Follow-up as clinically indicated. Coding ======= Description: 31466-18 Detailed Belt Loop Maker: Cheyenne Spence RDMS Physician: Sebastian Larsen MD, FACOG Electronically signed by: Sebastian Larsen MD, FACOG at: 09:18 Procedure Note Sebastian Larsen MD - 07/22/2024 PAT NAME: CAROLE GIRARD MED REC#: [id number] DA: [id number] PAT GEND: F PAT TYPE: O EXAM TRAVIS: [id number] REF PHYS KELLY WATKINS Comparison Studies There are no relevant prior studies to which this study is beingcompared Patient Status Outpatient Indication ======== Incomplete anatomy, previous SGA, hx c/s x1 Maternal Assessment Oblgrb434 cm Height (ft)5 ft Height (in)4 in Vvcxdl67 kg Weight (lb)163 lb BMI28.17 kg/m Method ======= Transabdominal ultrasound examination ========= Love . Number of fetuses: 1 Dating ====== Method of dating:based on stated DUSTY GA by prior mhoyivxtjb27 w + 1 d DUSTY by prior assessment:12/01/2024 Ultrasound examination on:07/22/2024 GA by U/S based upon:AC, BPD, Femur, HC GA by U/S20 w + 5 d DUSTY by U/S:12/04/2024 Previous dating:based on stated DUSTY, selected on 07/05/2024 Agreed DUSTY of previous datin12/01/2024 Assigned:based on stated DUSTY, selected on 07/22/2024 Assigned GA21 w + 1 d Assigned DUSTY:12/01/2024 magrhn353 d Biometry Standard BPD47.5 mm 20w 3d 19% Hadlock OFD63.7 mm 21w 5d 69% Jamal HC177.8 mm 20w 2d 9% Hadlock Cerebellum tr22.0 mm 20w 4d 46% Hill AC160.4 mm 21w 1d 43% Hadlock Femur33.9 mm 20w 5d 24% Hadlock Tfwimoo69.7 mm 21w 0d 40% Jamal HC / AC1.11 AGE562 g 20w 5d 29% Hadlock EFW (lb)0 lb EFW (oz)13 oz EFW by:Hadlock (EGX-RV-SS-FL) Extended Tibia28.0 mm 20w 1d 17% Jamal Nmabaz79.3 mm 19w 5d 17% Jamal Qdbewn83.9 mm 20w 0d 36% Jamal Ulna30.0 mm 21w 1d 33% Jamal Cav. septi pel. tr3.7 mm Vp5.4 mm CM4.7 mm 32% Nicolaides Head / Face / Neck Cephalic index0.75 11% Nicolaides Extremities / Bony Struc FL / BPD0.71 FL / HC0.19 FL / AC0.21 Other Structures LKX685 bpm General Evaluation Cardiac activity present. FHR [...] view:Appears normal SVC:normal IVC:normal 3-vessel view:Appears normal 8-jjpsfw-zsxrhxr view:Appears normal Rt lung:Appears normal Lt lung:normal [...] Structures Uterus / Cervix Cervix:Visualized Approach:Transabdominal Cervical butsrt01.6 mm Ovaries / Tubes / Adnexa Rt ovary:Visualized Lt ovary:Visualized Impression Today's exam reveals a SIUP with biometry consistent with dates. Fetalanatomic survey appears normal. Fluid is normal. The placenta is anterior,left. The TA cervical length appears adequate Recommendation Follow-up as clinically indicated. Coding ======= Description:64879-14 Detailed Belt Loop Maker: Cheyenne Spence RDMS Physician: Sebastian Larsen MD, FACOG Electronically signed by: Sebastian Larsen MD, FACOG at: 09:18 Result [facility] Kelly Watkins APRN [facility] US ORDERABLES Final Resu lt documented in this encounter Visit Diagnoses Diagnosis care, antepartum, unspecified High risk due to history of labor, antepartum History of prior with small for gestational age documented in this encounter Additional Health Concerns Assessment Noted Time PHQ-2 Depression Total Score: 2 05/28/19 25 4:39 PM EDT documented as of this encounter Care Teams Blockers Skiver Relationship Specialty Start Date End Date Norma Friedman APRN [address] [place] G3 RAFAELA APPIAH [address] PCP - General Family Medicine 05/14/24 documented as of this encounter
--- OUTSIDE RECORDS SUMMARY | 2024-07-22 08:00 | XMS_ITS | Encounter Summary ---
Author Organization [facility] Address [address] [place] [id number] Care Team Providers Care Fixed Route Operator Name Role Phone Ivyashlyn Valentinoseven JOLENE Primary Care Provider + [phone] Reason for Visit * Reason Comments incomplete anatomy; hx SGA in prev. preg onelia; prev. c/s Encounter Details Date Type Department Care Team (Late st Contact Info) Description 07/22/2024 8:00 AM EDT Office Visit [facility] MATERNAL MEDICINE [address] [place] [address] [place] [address] Sebastian Larsen MD 1700 [facility] [address] [place] [phone] History of prior with small for gestational age (Primary Dx) Social History Tobacco Use Types Packs/Day Years Used Date Smoking Tobacco: Never Smokeless Tobacco: Never Alcohol Use Standard Drinks/Week Comments Never 0 (1 standard drink = 0.6 oz pur e alcohol) [facility] Utilities Answer Date Recorded In the past 12 months has [employer] electric, gas, oil, or water company threatened [...] Not hard at all 05/28/2024 [facility] [place] of Occupat ional Health - Occupational Stress [...] Sign Reading Time Taken Comments Blood Pressure 98/58 07/22/2024 8:10 AM EDT Pulse - - Temperature - - Respiratory Rate - - Oxygen Saturation - - Inhaled Oxygen Concentration - - Weight 74.3 kg (163 lb 12.8 oz) 07/22/2024 8:10 AM EDT Height - - Body Mass Index 28.12 05/21/2024 10:18 AM EDT documented in this encounter Progress Notes * Lyudmila Germain RN - 07/22/2024 8:00 AM EDT Patient denies any leaking of fluid. She reports myriam calixto contractions and bright red spottingoff and on, most recently last night. NIPT declined. Patient reports next follow-up appointment with Dr. Jain's office is today. * Sebastian Larsen MD - 07/22/2024 8:00 AM EDT Documentation of the ultrasound findings, images, and interpretations will be available in the patient's Viewpoint report which is located in the imaging tab in chart review. documented in this encounter Plan of Treatment Upcoming Encounters Date Type Department Care Team (Late st Contact Info) Description 01/20/2025 3:30 PM EST Office Visit [facility] GASTRO[facility]OLOGY 17[address] [facility] [address] [place] [address] Robbin Escalante MD 1720 [facility] [address] [place] [address] documented as of this encounter Visit Diagnoses Diagnosis History of prior with small for gestational age - Primary documented in this encounter Additional Health Concerns Assessment Noted Time PHQ-2 Depression Total Score: 2 05/28/19 25 4:39 PM EDT documented as of this encounter Care Teams Fixed Route Operator Relationship Specialty Start Date End Date Norma Friedman APRN [address] [place] [address] [place] [address] PCP - General Family Medicine 05/14/24 documented as of this encounter
--- OUTSIDE RECORDS SUMMARY | 2024-07-22 09:10 | XMS_ITS | Encounter Summary ---
[facility] Address [address] [place] [phone] Care Team Providers Care Director Digital Catalogue Name Role Phone Norma Friedman APRN Primary Care Provider + [phone] Reason for Referral * Consultation (Routine) - Closed Specialty Diagnoses / Procedures Referred By Contac t Referred To Contact Nephrology Diagnoses History of proteinuria syndrome Procedures [place] OFFICE/OUTPATIENT NEW MODERATE MDM 45 MINUTES Staci Jain MD [address] [place] [address] Phone: tel: fax: [place] [address] Phone: tel: Referral ID Status Reason Start Date Expiration Date V isits Requested Visits Authorized [id number] Closed Specialty Services Required 07/22/2024 10/21/2025 1 1 Reason for Visit * Reason Comments Routine Visit * Diagnostic Imaging (Routine) - Closed Specialty Diagnoses / Procedures Referred By Contact Referred To Contact Obstetrics and Gynecology Diagnoses care, subsequent , second trimester Procedures US Ob 14 + Weeks Single or First Gestation Koby Roberts MD [address] [facility] [address] [place] [address] Phone: tel: fax: [facility] OBGYN [address] [place] [address] Phone: tel: fax: Referral ID Status Reason Start Date Expiration Date Visits Re quested Visits Authorized [id number] Closed 06/11/2024 09/10/2025 1 1 Encounter Details Date Type Department Care Team (Late st Contact Info) Description 07/22/2024 9:10 AM EDT Routine [facility] OBGYN [address] [phone] Staci Jain MD [address] [address] [place]: 21w1d Social History Tobacco Use Types Packs/Day Years Used Date Smoking Tobacco: Never Smokeless Tobacco: Never Alcohol Use Standard Drinks/Week Comments Never 0 (1 standard drink = 0.6 oz pur e alcohol) [facility] Utilities Answer Date Recorded In the past 12 months has [employer], gas, oil, or water [employer] threatened to shut off services in your [...] and heating? Not hard at all 05/28/2024 [facility] [place] of Occupat ional Health - Occupational Stress [...] GED or equivalent No 05/28/2024 Preferred Language Wallisian 05/28/2024 PHQ-2 Answer Date Recorded Patient Health Questionnaire-9 Score 2 05/28/2024 Estimated Date of Delivery Comme nts Yes 12/01/2024 Based on last ri nstrual period of 02/25/2024 Sex and Gender [...] IUGR. Unknown reasons. Has not seen a interstate planner This is my first time seeing patient. Transferred care. Will want to be seen in [facility]. Her care is complicated by (and status) [...] about 4 weeks (around 08/19/2024) for in [place]. Staci Jain MD 07/22/2024 documented in this encounter Plan of Treatment Upcoming Encounters Date Type Department Care Team (Late st Contact Info) Description 01/20/2025 3:30 PM EST Office Visit [facility]STR[facility]OLOGY [address] [address] Robbin Escalante MD [address] [address] Scheduled Referrals Name Type Priority Associated Diagnoses [...] AM EDT) Glucose, UA Negative Negative mg/dL [facility] Protein, POC 1+(A) Negative mg/dL [facility] Urine 07/22/2024 10:0 2 AM EDT us Staci Jain MD POINT OF CARE TEST OR DERABLES Final Result [facility]
[address] [place] [address], documented in this encounter Visit Diagnoses Diagnosis Multigravida in second trimester- Primary care, subsequent , second trimester History of proteinuria syndrome History of Other postprocedural status documented in this encounter Additional Health Concerns Assessment Noted Time PHQ-2 Depression Total Score: 2 05/28/19 25 4:39 PM EDT documented as of this encounter Care Teams Director Digital Catalogue Relationship Specialty Start Date End Date Norma Friedman APRN [address] [place] [address] [place] [address] [place] [id number] PCP - General Family Medicine 05/14/24 documented as of this encounter
--- OUTSIDE RECORDS SUMMARY | 2024-08-19 10:15 | XMS_ITS | Encounter Summary ---
[facility] [address] [place] [address] Care Team Providers Care Wire Stitcher Machine Name Role Phone Norma Friedman APRN Primary Care Provider + [phone] Reason for Visit * Reason Comments Routine Visit Encounter Details Date Type Department Care Team (Late st Contact Info) Description 08/19/2024 10:15 AM EDT Routine [facility] OBGYN [address] [place] [address] Jacey Mathews, SOCIAL MEDIA PROJECT MANAGER [address] [place] [address] GA: 25w1d Social History Tobacco Use Types Packs/Day Years Used Date Smoking Tobacco: Never Smokeless Tobacco: Never Alcohol Use Standard Drinks/Week Comments Never 0 (1 standard drink = 0.6 oz pur e alcohol) [facility] Utilities Answer Date Recorded In the past 12 months has [employer], gas, oil, or water [employer] threatened to shut off services in your [...] and heating? Not hard at all 05/28/2024 [facility] [place] of [facility] Health - Occupational Stress Questionnaire [...] GED or equivalent No 05/28/2024 Preferred Language Indonesian 05/28/2024 PHQ-2 Answer Date Recorded Patient Health [...] this encounter Progress Notes * Jacey Mathews, SOCIAL MEDIA PROJECT MANAGER - 08/19/2024 10:15 AM EDT Images from [...] Office Visit [facility] GASTRO[facility]OLOGY [address] [facility] [address] [place] [address] Robbin Escalante MD [address] [facility] [address] [place] [address] documented as of this encounter Visit Diagnoses Diagnosis Vaginal bleeding in - Primary 25 weeks gestation of documented in this encounter Additional Health Concerns Assessment Noted Time PHQ-2 Depression Total Score: 2 05/28/19 25 4:39 PM EDT documented as of this encounter Care Teams Wire Stitcher Machine Relationship Specialty Start Date End Date Norma Friedman APRN [address] [place] [address] [place] [address] PCP - General Family Medicine 05/14/24 documented as of this encounter
--- OUTSIDE RECORDS SUMMARY | 2024-08-19 13:59 | XMS_ITS | Encounter Summary ---
[facility] Address [address] [place] [id number] Care Team Providers Care Shared Services And Outsourcing Manager Name Role Phone Ivyashlyn Norma FERNÁNDEZ Primary Care Provider + [phone] Reason for Visit * Reason Comments Vaginal Bleeding * Auth/Cert (Routine) Specialty Diagnoses / Procedures Referred By Contleyla t Referred To Contact Referral ID Status Reason Start Date Expiration Date Visits Re quested Visits Authorized [id number] 1 1 Encounter Details Date Type Department Care Team (Late st Contact Info) Description 08/19/2024 1:59 PM EDT - 08/20/2024 4:28 PM EDT Hospital Encounter [facility] [address] [phone] Rob Wharton MD [address] [facility] [address] [place] [address] Blu Alvarado MD [address] [facility] [address] [place] [address] Dysphagia, unspecified type (Primary Dx) Discharge Disposition: Home or Self Care Social History Tobacco Use Types Packs/Day Years Used Date Smoking Tobacco: Never Smokeless Tobacco: Never Alcohol Use Standard Drinks/Week Comments Never 0 (1 standard drink = 0.6 oz pur e alcohol) [facility] Utilities Answer Date Recorded In the past 12 months has Real Time Wine, gas, oil, or water [employer] threatened to shut off services in your [...] Not hard at all 05/28/2024 [facility] [place] [facility] Occup[facility] - Occupational Stress [...] 1:23 PM EDT Polly Lacey RN * [place] Suicide Severity Rating Scale (Screener/Recent Self-Report) Question [...] Labs beginning of week and f/u with dc Seng Test Results Pending at Discharge Pending Labs Order Current Status Tissue Pathology Exam In process Rob Wharton MD 08/20/24 15:36 EDT Time: Discharge <30 min documented in this encounter Discharge Instructions * Attachments The following attachments cannot be sent through Care Everywhere. * Second Trimester of (Malagasy) * Upper Endoscopy Adult Care After (Malagasy) documented in this encounter Medications at Time [...] 08/19/2024 RH Positive 08/19/2024 ABSCRN Negative 08/19/2024 [id number] non-reactive 04/12/2024 HEPCVIRUSABY negative 04/12/2024 URINECX Final [...] IUPC: Resting Tone: Resting Tone by IUPC: [place] Units: Cervix: Exam by: Method: sterile vaginal [...] from the original note were not included. [facility] Obstetric History and Physical Referring Provider: [...] her third trimesters prior pregnancies(etiology unknown). 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 She states has never had [...] IUPC: Resting Tone: Resting Tone by IUPC: [place] Units: Laboratory Results: Lab Results (last 24 [...] AM EDTAssociated Order(s): IP CONSULT TO [facility]STROENTEROLOGY [facility] [place] Consult Referring Provider: Dr. Fan/Dr. Wharton [...] expresses concern regarding recent CT scan at [facility] revealing a hiatal hernia. CT scan done prior to most recent due to ovarian cyst and incidentally revealed hiatal hernia. She reports chronic gastrointestinal symptoms. Review of medical record revealed prior GI referral due to blood per rectum. She reports colonoscopy in 2020 at outside facility that revealed diverticulosis and benign colon polyp. She is currently established with provider at [facility] for gastroenterology care she reports [...] , await recommendations following EGD - consider BILLING SPEC evaluation if no etiology for difficulty swallowing [...] from the original note were not included. [facility] Obstetric History and Physical Referring Provider: [...] her third trimesters prior pregnancies(etiology unknown). 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 She states has never had [...] IUPC: Resting Tone: Resting Tone by IUPC: [place] Units: Laboratory Results: Lab Results (last 24 [...] Visit [facility] [address] [facility] [phone] Robbin Escalante MD [address] [facility] [address] documented as of this encounter Procedures Procedure [...] NONSTRESS TEST Routine 08/19/2024 4:17 PM EDT [facility] Routine 08/19/2024 3:25 PM EDT [...] EDT) Case Report Surgical Pathology Report Case: [id number] Authorizing Provider: Blu Alvarado MD Collected: 08/20/2024 [...] Final Result [facility]
[address] [place] [address], * Upper GI Endoscopy (08/20/2024 1:09 PM [...] 5:25 AM EDT 08/20/2024 5:46 AM EDT [facility] - 08/20/2024 6:13 AM EDT GFR [...] ORDERABLES Final Resu lt Performing Organization Address City/[facility]/ZIP Co de Phone Number [facility]
[address] [place] [address], * (ABNORMAL) Potassium (08/19/2024 8:53 PM EDT) Potassium 2.7(L) 3.5 - 5.2 mmol/L 08/19/2024 9:20 PM EDT [facility] Blood Venipuncture / Unknown 08/19/2024 8:53 PM EDT 08/19/2024 9:04 PM EDT Kt Fan DO LAB BLOOD ORDERABLES Final Result Performing Organization Address [facility] Co de Phone Number [facility]
[address] [place] [address], * ABO RH Specimen Verification (08/19/2024 4:34 PM EDT) ABO Type O 08/19/2024 7:39 PM EDT [facility] RH type Positive 08/19/2024 7:39 PM EDT [facility] Blood Venipuncture / Unknown 08/19/2024 4:34 PM EDT 08/19/2024 4:53 PM EDT Rob Wharton MD BLOOD BANK TEST ORDER FRANCO Final Result Performing Organization Address City/[facility]/ZIP Co de Phone Number [facility]
[address] [place] [address], * [facility] (08/19/2024 3:25 PM EDT) Anatomical Region Laterality Modality Ultrasound 08/19/2024 3:09 PM EDT Narrative 08/19/2024 4:54 PM EDT PAT NAME: CAROLE GIRARD MED REC#: [id number] DA: 1990 PAT GEND: F PAT TYPE: E EXAM TRAVIS: [id number] REF PHYS ROB WHARTON Comparison Studies The [...] EFW (oz) 9 oz EFW by: Hadlock ([id number]) Extended Cav. septi pel. tr 4.7 mm Diesel Engine Operator 3.8 mm CM 7.5 mm 84% [...] Heart / Thorax 3-vessel view: Appears normal 7-ccfdeo-tqqcpdt view: Appears normal Stomach: Appears normal Kidneys: [...] in 4wks for growth. Coding ======= Description: [id number] Follow Up Aoc Plans Intelligence Officer Chief: RT Annetta Hartmann , [facility] Physician: Jo Chappell MD Electronically signed by: Jo Chappell MD at: 16:54 Procedure Note Jo Chappell MD - 08/19/2024 PAT NAME: CAROLE GIRARD MED REC#: [id number] DA: 1990 PAT GEND: F PAT TYPE: E EXAM TRAVIS: [id number] REF PHYS ROB WHARTON Comparison Studies The findings of this study are compared to the prior ultrasound studydated 07/22/24 Patient Status Inpatient Indication ======== History of c/s x1. History of . Vaginal bleeding. Maternal Assessment Caxlfn720 cm Height (ft)5 ft Height (in)4 in Bkusbk42 kg Weight (lb)158 lb BMI27.31 kg/m Method ======= Transabdominal ultrasound examination. View: Limited by patient bodyhabitus ========= Love . Number of fetuses: 1 Dating ====== Method of dating:based on stated DUSTY GA by prior patrbmrets46 w + 1 d DUSTY by prior assessment:12/01/2024 Ultrasound examination on:08/19/2024 GA by U/S based upon:AC, BPD, Femur, HC GA by U/S24 w + 2 d DUSTY by U/S:12/07/2024 Previous dating:based on stated DUSTY, selected on 07/22/2024 Agreed DUSTY of previous datin12/01/2024 Assigned:based on stated DUSTY, selected on 08/19/2024 Assigned GA25 w + 1 d Assigned DUSTY:12/01/2024 [id number] d Biometry Standard BPD57.6 mm 23w 4d 5% Hadlock OFD81.6 mm 26w 4d 88% Jamal HC225.7 mm 24w 4d 13% Hadlock Cerebellum tr28.9 mm 25w 2d 62% Hill AC194.9 mm 24w 1d 15% Hadlock Femur44.9 mm 24w 6d 27% Hadlock Bpfwdzx12.3 mm 25w 3d 50% Jamal HC / AC1.16 RVF743 g 24w 2d 16% Hadlock EFW (lb)1 lb EFW (oz)9 oz EFW by:Hadlock (TIR-[id number]-FL) Extended Cav. septi pel. tr4.7 mm Vp3.8 mm CM7.5 mm 84% [place]ides Head / Face / Neck Cephalic index0.71 <1% [place]ides Extremities / Bony Struc FL / BPD0.78 FL / HC0.20 FL / AC0.23 Other Structures UMH231 bpm General Evaluation Cardiac activity present. FHR [...] normal Heart / Thorax 3-vessel view:Appears normal 6-fwcxcs-yqdkgtr view:Appears normal Stomach:Appears normal Kidneys:Appears normal Bladder:Appears normal Gender:female Wants to know gender:yes Maternal Structures Uterus / Cervix Cervix:Visualized Approach:Transabdominal Cervical qfivgo03.9 mm Doppler Arterial Umbilical A PI1.01 32% [...] office in 4wks for growth. Coding ======= Description:[id number] Follow Up Aoc Plans Intelligence Officer Chief: RT Annetta Hartmann , RDMS Physician: Jo Chappell MD Electronically signed by: Jo Chappell MD at: 16:54 us Kt Fan DO G US ORDERABLES Final Res ult * Protein / Creatinine Ratio, Urine - Urine, Clean Catch (08/19/2024 3:02 PM EDT) Protein/Creati nine Ratio, Urine 126.1 0.0 - 200.0 mg/G Crea 08/20/2024 12:47 AM EDT [facility] Creatinine, Urine 148.3 mg/dL 08/20/2024 12:47 AM EDT [facility] Total Protein, Urine 18.7 mg/dL 08/20/2024 12:47 AM EDT [facility] Urine Urine specimen obtained by clean catch procedure / Unknown Collection / Unknown 08/19/2024 3:02 PM EDT 08/19/2024 4:26 PM EDT Kt Fan URINE ORDERABLES Final Resu lt [facility]
[address] [place] [address], [place] [phone] * (ABNORMAL) Magnesium (08/19/2024 3:02 PM EDT) Magnesium 1.5(L) 1.6 - 2.6 mg/dL 08/19/2024 5:12 PM EDT [facility] Blood Line / Unknown 08/19/2024 3: 02 PM EDT 08/19/2024 3:10 PM EDT Kt Fan DO LAB BLOOD ORDERABLES Final Result [facility]
[address] [place] [address], [place] [phone] * Urinalysis, Microscopic Only - Urine, Clean [...] Final Resu lt [facility]
[address] [place] [address], * (ABNORMAL) CBC Auto Differential (08/19/2024 3:02 [...] Final Result [facility]
[address] [place] [address], * (ABNORMAL) Urinalysis With Microscopic If Indicated (No Culture) - Urine, Clean Catch (08/19/2024 3:02 PM EDT) Color, UA Yellow Yellow, Straw 08/19/2024 3:33 PM EDT [facility] Appearance, UA Clear Clear 08/19/2024 3:33 PM EDT [facility] pH, UA >=9.0(H) 5.0 - 8.0 08/19/2024 3:33 PM EDT [facility] Specific Falcon, UA 1.018 1.005 - 1.030 08/19/2024 3:33 [...] ORDERABLES Final Resu lt Performing Organization Address City/[facility]/ZIP Co de Phone Number [facility]
[address] [place] [address], [place] [phone] * Amylase (08/19/2024 3:02 PM EDT) Amylase 73 28 - 100 U/L 08/19/2024 3:36 PM EDT [facility] Blood Line / Unknown 08/19/2024 3: 02 PM EDT 08/19/2024 3:10 PM EDT us Kt Fan DO LAB BLOOD ORDERABLES Final Result Performing Organization Address [facility] Co de Phone Number [facility]
[address] [place] [address], [place] [phone] * Lipase (08/19/2024 3:02 PM EDT) Lipase 13 13 - 60 U/L 08/19/2024 3:36 PM EDT [facility] Blood Line / Unknown 08/19/2024 3: 02 PM EDT 08/19/2024 3:10 PM EDT us Kt Fan DO LAB BLOOD ORDERABLES Final Result Performing Organization Address City/[facility]/ZIP Co de Phone Number [facility]
[address] [place] [address], * (ABNORMAL) Comprehensive Metabolic Panel (08/19/2024 3:02 PM EDT) [facility] Glucose 75 65 - 99 [...] Final Result [facility]
[address] [place] [address], * Type & Screen (08/19/2024 3:02 PM [...] Final [facility]
[address] [place] [address], documented in this encounter Visit Diagnoses Diagnosis [...] documented as of this encounter Care Teams Shared Services And Outsourcing Manager Relationship Specialty Start Date End Date Norma Friedman APRN [address] [place]3 RAFAELA APPIAH [id number] PCP - General Family Medicine 05/14/24 documented as of this encounter
--- OUTSIDE RECORDS SUMMARY | 2024-08-20 13:33 | XMS_ITS | Encounter Summary ---
[facility] Organization [facility] Address [address] [place] [address] Care Team Providers Care Projector Booth Operator Name Role Phone Norma Friedman APRN Primary Care Provider + [phone] Reason for Visit * Reason Comments Vaginal Bleeding * Auth/Cert (Routine) Specialty Diagnoses / Procedures Referred By Tarik t Referred To Contact Referral ID Status Reason Start Date Expiration Date Visits Re quested Visits Authorized [id number] 1 1 Encounter Details Date Type Department Care Team (Late st Contact Info) Description 08/20/2024 1:33 PM EDT - 08/20/2024 2:05 PM EDT Surgery [facility] ENDO SUITES [address] [place] [address] Blu Alvarado MD [address] [facility] [address] [place] [address] ESOPHAGOGASTRODUODENOSCOPY [76840 (CPT )] Social History Tobacco Use Types Packs/Day Years Used Date Smoking Tobacco: Never Smokeless Tobacco: Never Alcohol Use Standard Drinks/Week Comments Never 0 (1 standard drink = 0.6 oz pur e alcohol) [facility] Utilities Answer Date Recorded In [...] and heating? Not hard at all 05/28/2024 [facility] - Occupational Stress Questionnaire Answer Date [...] GED or equivalent No 05/28/2024 Preferred Language [place] 05/28/2024 PHQ-2 Answer Date Recorded Patient [...] 1:23 PM EDT Polly Lacey RN * [place] Suicide Severity Rating Scale (Screener/Recent Self-Report) Question [...] Labs [facility] Results Pending at Discharge Pending Labs Order Current Status Tissue Pathology Exam In process Rob Wharton MD 08/20/24 15:36 EDT Time: Discharge <30 min documented in this encounter Discharge Instructions * Attachments The following attachments cannot be sent through Care Everywhere. * Second Trimester of ([place]) * Upper Endoscopy Adult Care After ([place]) documented in this encounter Medications at Time [...] 08/19/2024 RH Positive 08/19/2024 ABSCRN Negative 08/19/2024 [id number] non-reactive 04/12/2024 HEPCVIRUSABY negative 04/12/2024 URINECX Final [...] IUPC: Resting Tone: Resting Tone by IUPC: [place] Units: Cervix: Exam by: Method: sterile vaginal [...] from the original note were not included. [facility] Obstetric History and Physical Referring [...] her third trimesters prior pregnancies(etiology unknown). 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 She states has never had [...] IUPC: Resting Tone: Resting Tone by IUPC: [place] Units: Laboratory Results: Lab Results (last 24 [...] AM EDTAssociated Order(s): IP CONSULT TO GASTROENTEROLOGY [facility] Gastroenterology Consult Referring [...] concern regarding recent CT scan at [facility] revealing a hiatal hernia. CT scan done prior to most recent due to ovarian cyst and incidentally revealed hiatal hernia. She reports chronic gastrointestinal symptoms. Review of medical record revealed prior GI referral due to blood per rectum. She reports colonoscopy in 2020 at outside facility that revealed diverticulosis and benign colon polyp. She is currently established with provider at [facility] for gastroenterology care she reports repeat EGD [...] , await recommendations following EGD - consider REIMBURSEMENT REPRESENTATIVE evaluation if no etiology for difficulty swallowing [...] from the original note were not included. [facility] Obstetric History and Physical Referring [...] her third trimesters prior pregnancies(etiology unknown). 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 She states has never had [...] IUPC: Resting Tone: Resting Tone by IUPC: [place] Units: Laboratory Results: Lab Results (last 24 [...] Description 01/20/2025 3:30 PM EST Office Visit [facility] GASTROENTEROLOGY [address] [id number] Robbin Escalante MD [address] [address] documented as of this encounter Procedures Procedure Name Priority Date/Time Associated Diagnosis Comments TISSUE PATHOLOGY EXAM Routine 08/20/2024 1:55 PM EDT Dysphagia, unspecified type [place] ESOPHAGOGASTRODUODENOSCOP Y TRANSORAL DIAGNOSTIC 08/20/2024 1:44 PM EDT Dysphagia, unspecified type UPPER GI ENDOSCOPY 08/20/2024 1:09 PM EDT BASIC METABOLIC PANEL STAT 08/20/2024 5:25 AM EDT POTASSIUM STAT 08/19/2024 8:53 PM EDT ABORH 2ND SPECIMEN VERIFICATION STAT 08/19/2024 4:34 PM EDT NONSTRESS TEST Routine 08/19/2024 4:17 PM EDT [facility] DI[facility]IC [facility] Routine 08/19/2024 3:25 [...] EDT) Case Report Surgical Pathology Report Case: [id number] Authorizing Provider: Blu Alvarado MD Collected: 08/20/2024 01:55 PM Ordering Location: [facility] Received: 08/20/2024 02:14 PM ENDO SUITES Pathologist: Khalida Rhoades DO Specimen: Gastric, Antrum, antrum bx for path 08/22/2024 9:18 AM EDT [facility] LABORATORY Clinical Information Dysphagia, unspecified type 08/22/2024 9:18 AM EDT [facility] LABORATORY Final Diagnosis Stomach, antrum, biopsy: 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 pylori is negative (no organisms are identified) Negative for intestinal metaplasia, dysplasia, or malignancy 08/22/2024 9:18 AM EDT [facility] LABORATORY at 0918 EDT Gross Description 1. Gastric, Antrum. Received in formalin labeled antrum biopsy is a 0.4 x 0.2 x 0.2 cm pink-see soft tissue fragment submitted entirely in a single cassette. HDM 08/22/2024 9:18 AM EDT [facility] LABORATORY Microscopic Description The slides are reviewed and demonstrate histopathologic features supporting the above rendered diagnosis. 08/22/2024 9:18 AM EDT [facility] LABORATORY Tissue Pyloric antrum structure / Unknown 08/20/2024 1:55 PM EDT 08/20/2024 2:14 PM EDT us Blu Alvarado MD PATHOLOGY/CYTOLOGY ORDERABLES Final Result [facility] LABORATORY
[address] [place] [address], * Upper GI Endoscopy (08/20/2024 1:09 PM EDT) us Blu Alvarado MD INTERFACE NEEDS Final Result * (ABNORMAL) Basic Metabolic Panel (08/20/2024 5:25 AM EDT) Glucose 84 65 - 99 mg/dL 08/20/2024 6:13 AM EDT [facility] LABORATORY BUN 2.3(L) 6.0 - 20.0 mg/dL 08/20/2024 6:13 AM T [facility] LABORATORY Creatinine 0.51(L) 0.57 - 1.00 mg/dL 08/20/2024 6:13 AM [facility] Sodium 139 136 - 145 mmol/L 08/20/2024 6:13 AM EDT [facility] LABORATORY Potassium 3.5 3.5 - 5.2 mmol/L 08/20/2024 6:13 AM EDT [facility] LABORATORY Chloride 109(H) 98 - 107 mmol/L 08/20/2024 6:13 AM [facility] CO2 23.5 22.0 - 29.0 mmol/L 08/20/2024 6:13 AM [facility] Calcium 7.8(L) 8.6 - 10.5 mg/dL 08/20/2024 6:13 AM [facility] BUN/Creatinine Ratio 4.5(L) 7.0 - 25.0 08/20/2024 6:13 AM [facility] Anion Gap 6.5 5.0 - 15.0 mmol/L 08/20/2024 6:13 AM [facility] eGFR 126.6 >60.0 mL/min/1.7 3 08/20/2024 6:13 AM [facility] Blood Venipuncture / Unknown 08/20/2024 5:25 AM EDT 08/20/2024 5:46 AM T [facility] LABORATORY - 08/20/2024 6:13 AM [...] ORDERABLES Final Resu lt Performing Organization Address City/[facility]/ZIP Co de Phone Number [facility] LABORATORY
[address] [place] [address], * (ABNORMAL) Potassium (08/19/2024 8:53 PM EDT) Potassium 2.7(L) 3.5 - 5.2 mmol/L 08/19/2024 9:20 PM EDT [facility] LABORATORY Blood Venipuncture / Unknown 08/19/2024 8:53 PM EDT 08/19/2024 9:04 PM EDT Kt Fan DO LAB BLOOD ORDERABLES Final Result Performing Organization Address [facility] Co de Phone Number [facility] LABORATORY
[address] [place] [address], * ABO RH Specimen Verification (08/19/2024 4:34 PM EDT) ABO Type O 08/19/2024 7:39 PM EDT [facility] BB LABORATORY RH type Positive 08/19/2024 7:39 PM EDT [facility] BB LABORATORY Blood Venipuncture / Unknown 08/19/2024 4:34 PM EDT 08/19/2024 4:53 PM EDT Rob Wharton MD BLOOD BANK TEST ORDER FRANCO Final Result Performing Organization Address City/[facility]/ZIP Co de Phone Number [facility] BB LABORATORY
[address] [place] [address], * [facility] (08/19/2024 3:25 PM EDT) Anatomical Region Laterality Modality Ultrasound 08/19/2024 3:09 PM EDT Narrative 08/19/2024 4:54 PM EDT PAT NAME: CAROLE GIRARD MED REC#: [id number] DA: 1990 PAT GEND: F PAT TYPE: E EXAM TRAVIS: [id number] REF PHYS ROB WHARTON Comparison Studies The [...] EFW (oz) 9 oz EFW by: Hadlock ([id number]) Extended Cav. septi pel. tr 4.7 mm Haunted History Tour Guide 3.8 mm CM 7.5 mm 84% Nicolaides [...] Heart / Thorax 3-vessel view: Appears normal 9-fpzcmd-afhxvdz view: Appears normal Stomach: Appears normal Kidneys: [...] in 4wks for growth. Coding ======= Description: 64225-29 Follow Up Leaf Tier: Alison Verduzco RT R , MS Physician: Jo Chappell MD Electronically signed by: Jo Chappell MD at: 16:54 Procedure Note Jo Chappell MD - 08/19/2024 PAT NAME: CAROLE GIRARD MED REC#: [id number] DA: [id number] PAT GEND: F PAT TYPE: E EXAM TRAVIS: [id number] REF PHYS ROB WHARTON Comparison Studies The findings of this study are compared to the prior ultrasound studydated 07/22/24 Patient Status Inpatient Indication ======== History of c/s x1. History of . Vaginal bleeding. Maternal Assessment Zjcyfh651 cm Height (ft)5 ft Height (in)4 in Ghhewz89 kg Weight (lb)158 lb BMI27.31 kg/m Method ======= Transabdominal ultrasound examination. View: Limited by patient bodyhabitus ========= Love . Number of fetuses: 1 Dating ====== Method of dating:based on stated DUSTY GA by prior dwyykmzhaw70 w + 1 d DUSTY by prior [...] Hadlock Femur44.9 mm 24w 6d 27% Hadlock Kkdhjoh57.3 mm 25w 3d 50% Jamal HC / AC1.16 NUE512 g 24w 2d 16% Hadlock EFW (lb)1 lb EFW (oz)9 oz EFW by:Hadlock ([id number]) Extended Cav. septi pel. tr4.7 mm Vp3.8 mm CM7.5 mm 84% Nicolaides Head / Face / Neck Cephalic index0.71 <1% Nicolaides Extremities / Bony Struc FL / BPD0.78 FL / HC0.20 FL / AC0.23 Other Structures KJX266 bpm General Evaluation Cardiac activity present. FHR [...] normal Heart / Thorax 3-vessel view:Appears normal 7-cfgwoh-vevcagq view:Appears normal Stomach:Appears normal Kidneys:Appears normal Bladder:Appears normal Gender:female Wants to know gender:yes Maternal Structures Uterus / Cervix Cervix:Visualized Approach:Transabdominal Cervical kiuyad68.9 mm Doppler Arterial Umbilical A PI1.01 32% [...] office in 4wks for growth. Coding ======= Description:79187-94 Follow Up Leaf Tier: RT Annetta Hartmann , [facility] Physician: Jo Chappell MD Electronically signed by: Jo Chappell MD at: 16:54 us Kt Fan DO [facility] US ORDERABLES Final Res ult * Protein / Creatinine Ratio, Urine - Urine, Clean Catch (08/19/2024 3:02 PM EDT) Protein/Creati nine Ratio, Urine 126.1 0.0 - 200.0 mg/G Crea 08/20/2024 12:47 AM EDT [facility] Creatinine, Urine 148.3 mg/dL 08/20/2024 12:47 AM EDT [facility] Total Protein, Urine 18.7 mg/dL 08/20/2024 12:47 AM EDT [facility] Urine Urine specimen obtained by clean catch procedure / Unknown Collection / Unknown 08/19/2024 3:02 PM EDT 08/19/2024 4:26 PM EDT Kt Fan DO URINE ORDERABLES Final Resu lt [facility] LABORATORY
[address] [place] [address], [place] [phone] * (ABNORMAL) Magnesium (08/19/2024 3:02 PM EDT) Magnesium 1.5(L) 1.6 - 2.6 mg/dL 08/19/2024 5:12 PM EDT [facility] LABORATORY Blood Line / Unknown 08/19/2024 3: 02 PM EDT 08/19/2024 3:10 PM EDT Kt Fan DO LAB BLOOD ORDERABLES Final Result Performing Organization Address City/[facility]/ZIP Co de Phone Number [facility] LABORATORY
[address] [place] [address], [place] [phone] * Urinalysis, Microscopic Only - Urine, Clean Catch (08/19/2024 3:02 PM EDT) RBC, UA 0-2 None Seen, 0-2 /HPF 08/19/2024 3:33 PM EDT [facility] LABORATORY WBC, UA 0-2 None Seen, 0-2 /HPF 08/19/2024 3:33 PM EDT [facility] LABOR[facility]ORY Bacteria, UA None Seen None Seen /HPF 08/19/2024 3:33 PM EDT [facility] LABOR[facility]ORY Squamous Epithelial Cells, UA 0-2 None Seen, 0-2 /HPF 08/19/2024 3:33 PM EDT [facility] LABOR[facility]ORY Hyaline Casts, UA None Seen None Seen /LPF 08/19/2024 3:33 PM EDT [facility] LABOR[facility]ORY Methodology Automated Microscopy 08/19/2024 3:33 PM EDT [facility] LABOR[facility]ORY Urine Urine specimen obtained by clean catch procedure / Unknown Collection / Unknown 08/19/2024 3:02 PM EDT 08/19/2024 3:13 PM EDT Kt Fan DO URINE ORDERABLES Final Resu lt [facility] LABORATORY
[address] [place] [address], * (ABNORMAL) CBC Auto Differential (08/19/2024 3:02 PM EDT) WBC 9.19 3.40 - 10.80 10*3/mm3 08/19/2024 3:23 PM EDT [facility] LABOR[facility] RBC 3.58(L) 3.77 - 5.28 10*6/mm3 08/19/2024 3:23 PM EDT [facility] Hemoglobin 10.5(L) 12.0 - 15.9 g/dL 08/19/2024 3:23 PM EDT [facility] LAB[facility]ORY Hematocrit 31.4(L) 34.0 - 46.6 % 08/19/2024 3:23 PM EDT [facility] LAB[facility] MCV 87.7 79.0 - 97.0 fL 08/19/2024 3:23 PM EDT [facility]ORY MCH 29.3 26.6 - 33.0 pg 08/19/2024 3:23 PM EDT [facility] LAB[facility]ORY MCHC 33.4 31.5 - 35.7 g/dL 08/19/2024 3:23 PM EDT [facility] LAB[facility] RDW 13.4 12.3 - 15.4 % 08/19/2024 3:23 PM EDT [facility] LABOR[facility] RDW-SD 42.4 37.0 - 54.0 fl 08/19/2024 3:23 PM EDT [facility] LABORATORY MPV 12.0 6.0 - 12.0 fL 08/19/2024 3:23 PM EDT [facility] LAB[facility]ORY Platelets 241 140 - 450 10*3/mm3 08/19/2024 3:23 PM EDT [facility] LAB[facility]ORY Neutrophil % 66.8 42.7 - 76.0 % 08/19/2024 3:23 PM EDT [facility] LABOR[facility]ORY Lymphocyte % 24.4 19.6 - 45.3 % 08/19/2024 3:23 PM EDT [facility] LAB[facility]ORY Monocyte % 7.6 5.0 - 12.0 % 08/19/2024 3:23 PM EDT [facility] LABOR[facility]ORY Eosinophil % 0.7 0.3 - 6.2 % 08/19/2024 3:23 PM EDT [facility] LAB[facility]ORY Basophil % 0.2 0.0 - 1.5 % 08/19/2024 3:23 PM EDT [facility] LABOR[facility]ORY Immature Grans % 0.3 0.0 - 0.5 % 08/19/2024 3:23 PM EDT [facility] LABORATORY Neutrophils, Absolute 6.14 1.70 - 7.00 10*3/mm3 08/19/2024 3:23 PM EDT [facility] LABOR[facility]ORY Lymphocytes, Absolute 2.24 0.70 - 3.10 10*3/mm3 08/19/2024 3:23 PM EDT [facility] LABOR[facility]ORY Monocytes, Absolute 0.70 0.10 - 0.90 10*3/mm3 08/19/2024 3:23 PM EDT [facility] LABORATORY Eosinophils, Absolute 0.06 0.00 - 0.40 10*3/mm3 08/19/2024 3:23 PM EDT [facility] LAB[facility]ORY Basophils, Absolute 0.02 0.00 - 0.20 10*3/mm3 08/19/2024 3:23 PM EDT [facility] LAB[facility]ORY Immature Grans, Absolute 0.03 0.00 - 0.05 10*3/mm3 08/19/2024 3:23 PM EDT [facility] LAB[facility]ORY nRBC 0.0 0.0 - 0.2 /100 WBC 08/19/2024 3:23 PM EDT [facility] LAB[facility]ORY Blood Line / Unknown 08/19/2024 3: 02 PM EDT 08/19/2024 3:10 PM EDT Kt Fan DO LAB BLOOD ORDERABLES Final Result [facility] LABORATORY
[address] [place] [address], * (ABNORMAL) Urinalysis With Microscopic If Indicated (No Culture) - Urine, Clean Catch (08/19/2024 3:02 PM EDT) Color, UA Yellow Yellow, Straw 08/19/2024 3:33 PM EDT [facility] Appearance, UA Clear Clear 08/19/2024 3:33 PM EDT [facility] pH, UA >=9.0(H) 5.0 - 8.0 08/19/2024 3:33 PM EDT [facility] LABOR[facility]ORY Specific [place], UA 1.018 1.005 - 1.030 08/19/2024 3:33 PM EDT [facility] Glucose, UA Negative Negative 08/19/2024 3:33 PM EDT [facility] Ketones, UA 15 mg/dL (1+)(A) Negative 08/19/2024 3:33 PM EDT [facility] Bilirubin, UA Negative Negative 08/19/2024 3:33 PM EDT [facility] Blood, UA Negative Negative 08/19/2024 3:33 PM EDT [facility] Protein, UA 30 mg/dL (1+)(A) Negative 08/19/2024 3:33 PM EDT [facility] Leuk Esterase, UA Negative Negative 08/19/2024 3:33 PM EDT [facility] Nitrite, UA Negative Negative 08/19/2024 3:33 PM EDT [facility] Urobilinogen, UA 1.0 E.U./dL 0.2 - 1.0 E.U./dL 08/19/2024 3:33 PM EDT [facility] Urine Urine specimen obtained by clean catch procedure / Unknown Collection / Unknown 08/19/2024 3:02 PM EDT 08/19/2024 3:13 PM EDT us Kt Fan DO URINE ORDERABLES Final Resu lt [facility] LABORATORY
[address] [place] [address], [place] [phone] * Amylase (08/19/2024 3:02 PM EDT) Amylase 73 28 - 100 U/L 08/19/2024 3:36 PM EDT [facility] LAB[facility]ORY Blood Line / Unknown 08/19/2024 3: 02 PM EDT 08/19/2024 3:10 PM EDT us Kt Fan DO LAB BLOOD ORDERABLES Final Result Performing Organization Address [facility] Co de Phone Number [facility] LABORATORY
[address] [place] [address], [place] [phone] * Lipase (08/19/2024 3:02 PM EDT) Lipase 13 13 - 60 U/L 08/19/2024 3:36 PM EDT [facility] Blood Line / Unknown 08/19/2024 3: 02 PM EDT 08/19/2024 3:10 PM EDT us Kt Fan DO LAB BLOOD ORDERABLES Final Result Performing Organization Address City/[facility]/ZIP Co de Phone Number [facility] LABORATORY
[address] [place] [address], [place] [phone] * (ABNORMAL) Comprehensive Metabolic Panel (08/19/2024 3:02 PM EDT) Glucose 75 65 - 99 mg/dL 08/19/2024 3:38 PM EDT [facility] BUN 3.6(L) 6.0 - 20.0 mg/dL 08/19/2024 3:38 PM T [facility] Creatinine 0.51(L) 0.57 - 1.00 mg/dL 08/19/2024 3:38 PM EDT [facility] Sodium 137 136 - 145 mmol/L 08/19/2024 3:38 PM T [facility] Potassium 2.6(LL) 3.5 - 5.2 mmol/L 08/19/2024 3:38 PM [facility] Comment:Specimen hemolyzed. Result may be falsely elevated. Chloride 99 98 - 107 mmol/L 08/19/2024 3:38 PM [facility] CO2 24.2 22.0 - 29.0 mmol/L 08/19/2024 3:38 PM T [facility] Calcium 8.8 8.6 - 10.5 mg/dL 08/19/2024 3:38 PM T [facility] Total Protein 6.6 6.0 - 8.5 g/dL 08/19/2024 3:38 PM [facility] Albumin 3.4(L) 3.5 - 5.2 g/dL 08/19/2024 3:38 PM [facility] ALT (SGPT) 10 1 - 33 U/L 08/19/2024 3:38 PM T [facility] AST (SGOT) 22 1 - 32 U/L 08/19/2024 3:38 PM T [facility] Alkaline Phosphatase 64 39 - 117 U/L 08/19/2024 3:38 PM [facility] Total Bilirubin 0.5 0.0 - 1.2 mg/dL 08/19/2024 3:38 PM T [facility] Globulin 3.2 gm/dL 08/19/2024 3:38 PM T [facility] Comment:Calculated Result A/G Ratio 1.1 g/dL 08/19/2024 3:38 PM EDT [facility] BUN/Creatinine Ratio 7.1 7.0 - 25.0 08/19/2024 3:38 PM EDT [facility] Anion Gap 13.8 5.0 - 15.0 mmol/L 08/19/2024 3:38 PM EDT [facility] eGFR 126.6 >60.0 mL/min/1.7 3 08/19/2024 3:38 PM EDT [facility] Blood Line / Unknown 08/19/2024 3: 02 PM EDT 08/19/2024 3:10 PM EDT [facility] LABORATORY - 08/19/2024 3:38 PM [...] Fan DO LAB BLOOD ORDERABLES Final Result [facility] LABOR[facility]ORY
[address] [place] [address], * Type & Screen (08/19/2024 3:02 PM EDT) ABO Type O 08/19/2024 3:51 PM EDT [facility] BB LABORATORY RH type Positive 08/19/2024 3:51 PM EDT [facility] LABORATORY Antibody Screen Negative 08/19/2024 3:51 PM EDT [facility] LABORATORY T&S Expiration Date 08/22/2024 11:59:59 PM 08/19/2024 3:51 PM EDT [facility] LABORATORY Blood Line / Unknown 08/19/2024 3: 02 PM EDT 08/19/2024 3:15 PM EDT Kt Fan DO BLOOD BANK TEST ORDERABLES Edited Result - Final [facility] BB LABORATORY
[address] [place] [address], documented in this encounter Visit Diagnoses Diagnosis [...] BPA Driven Protocol [facility] Electrolyte Replacement Protocol Algorithm to View Details [...] documented as of this encounter Care Teams Projector Booth Operator Relationship Specialty Start Date End Date Norma Friedman APRN [address] [place] G3 RAFAELA APPIAH [id number] PCP - General Family Medicine 05/14/24 documented as of this encounter
--- OUTSIDE RECORDS SUMMARY | 2024-08-20 13:44 | XMS_ITS | Encounter Summary ---
[facility] Address [address] [place] [id number] Care Team Providers Care Marine Water Tender Name Role Phone IvyKade goldbergdev FERNÁNDEZ Primary Care Provider + [phone] Reason for Visit * Auth/Cert (Routine) Specialty Diagnoses / Procedures Referred By Contac t Referred To Contact Referral ID Status Reason Start Date Expiration Date Visits Re quested Visits Authorized 1 1 Encounter Details Date Type Department Care Team (Late st Contact Info) Description 08/20/2024 1:44 PM EDT Anesthesia Event [facility] END[facility] SUIT[facility] [address] [place] [phone] Akash Anguiano MD [address] [place] [address] Liborio Peralta CRNA [address] [place] [address] Anesthesia Record Procedure Summary Procedure Name Responsible [...] drink = 0.6 oz pur e alcohol) [facility] Utilities Answer Date Recorded In the [...] and heating? Not hard at all 05/28/2024 [facility] [place] of Occupat ional Health - Occupational Stress [...] GED or equivalent No 05/28/2024 Preferred Language Colombian 05/28/2024 PHQ-2 Answer Date Recorded Patient Health [...] 1:23 PM EDT Polly Lacey RN * [place] Suicide Severity Rating Scale (Screener/Recent Self-Report) Question Answer Date of Assessment Author 6. Suicidal Behavior (Lifetime) No 1:23 PM EDT Polly Cabrera RN documented as of this encounter OR Notes * Anesthesia Postprocedure Evaluation - Liborio Peralta CRNA - 08/20/2024 2:18 PM EDT Patient: Whitney Presley Procedure Summary Date: 08/20/24 Room / Location: [facility]COPY 3 [facility] Anesthesia [...] sounds: normal. 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 Plan discussed with ASSISTANT PROFESSOR OF HISTORY. CODE STATUS: documented in this encounter Plan of Treatment Upcoming Encounters Date Type Department Care Team (Late st Contact Info) Description 01/20/2025 3:30 PM EST Office Visit [facility] [address] [facility] [address] Robbin Escalante MD [address] [address] documented as of this encounter Procedures Procedure [...] and Staff Patient location during procedure: [place] ASSISTANT PROFESSOR OF HISTORY/CAA: Junior Zbigniew Jain, DAYNE Indications and Patient [...] documented as of this encounter Care Teams Marine Water Tender Relationship Specialty Start Date End Date Norma Friedman APRN [address] [place] [address] [place] [address] PCP - General Family Medicine 05/14/24 documented as of this encounter
--- OUTSIDE RECORDS SUMMARY | 2024-08-29 10:00 | XMS_ITS | Encounter Summary ---
[facility] Address [address] [place] [address] Care Team Providers Care Body Work Auto Trimmer Name Role Phone IvyKade goldbergjoseseven JOLENE Primary Care Provider + [phone] Reason for Visit * Reason Comments Problem Encounter Details Date Type Department Care Team (Late st Contact Info) Description 08/29/2024 10:00 AM EDT Routine [facility] OBGYN [address] [place] [address] Staci Jain MD [address] [place] [address] GA: 26w4d Social History Tobacco Use Types Packs/Day Years Used Date Smoking Tobacco: Never Smokeless Tobacco: Never Alcohol Use Standard Drinks/Week Comments Never 0 (1 standard drink = 0.6 oz pur e alcohol) [facility] Utilities Answer Date Recorded In the past 12 months has [employer], gas, oil, or water [employer] threatened to shut off services in your [...] heating? Not hard at all 05/28/2024 [facility] - Occupational Stress Questionnaire [...] Description 01/20/2025 3:30 PM EST Office Visit [facility] GASTROENTEROLOGY [address] [address] Robbin Escalante MD [address] [address] documented as of this encounter Procedures Procedure [...] 08/30/2024 6:09 AM EDT Performed at: [address] [id number] Metal Refiner: Kevin Harman MD, Phone: [phone] Patient Fasting: N us Staci Jain MD LAB BLOOD ORDERABLES Final Result [facility] (AMBULATORY) [address] [place] [address], [facility] [address] [place] [address], * (ABNORMAL) Comprehensive Metabolic Panel (08/29/2024 11:05 [...] 11:0 5 AM EDT 08/29/2024 Narrative [facility] (AMBULATORY) - 08/30/2024 6:09 AM EDT Performed at: 01 - [place] [address] [place], [place] [id number] Metal Refiner: Kevin Harman MD, Phone: [phone] Patient Fasting: N Staci Jain MD LAB BLOOD ORDERABLES Final Result Performing Organization Address City/[facility]/ZIP Co de Phone Number [facility] ([facility]) [address] [place] [address], [place] [phone] [facility] [address] [place] [address], [place] [phone] * (ABNORMAL) POC Urinalysis Dipstick (08/29/2024 10:13 AM EDT) Glucose, UA Negative Negative mg/dL [facility] Protein, POC Trace(A) Negative mg/dL [facility] Urine 08/29/2024 10:1 3 AM EDT us Staci Jain MD POINT OF CARE TEST OR DERABLES Final Result Performing Organization Address City/[facility]/ZIP Co de Phone Number [facility]
[address] [place] [address], documented in this encounter Visit Diagnoses Diagnosis [...] documented as of this encounter Care Teams Body Work Auto Trimmer Relationship Specialty Start Date End Date Norma Friedman APRN [address] [place] [place] [address] PCP - General Family Medicine 05/14/24 documented as of this encounter
--- OUTSIDE RECORDS SUMMARY | 2024-09-14 11:39 | XMS_ITS | Clinical Summary ---
Author Organization Healthcare Address [address] [place] [address] Care Team Providers Care Sock And Stocking Ironer Name Role Phone Unavailable Primary Care Provider Unavailabl e Encounters Date Type Department Care Team Description 07/22/2024 [facility] [address] [place] [address] Staci Jain MD History of proteinuria syndrome (Primary Dx); care, subsequent , second trimester 07/22/2024 [facility] [address] [place] [address] Sandy Cardenas MD from Last 3 Months [...] 2012 [facility]-Cervical Cancer Screening 2021 [facility]-HPV/Cotest 2021 [facility]-VEFRV-06 Vaccine (2 season) 2023 05/04/2022 [facility]-Influenza Vaccine [...]
--- OUTSIDE RECORDS SUMMARY | 2024-09-14 11:39 | XMS_ITS | Encounter Summary ---
Author Organization Healthcare Address [address] [place] [id number] Care Team Providers Care Antenna Engineer Name Role Phone Unavailable Primary Care Provider Unavailabl e Reason for Referral * Consultation (Routine) - Authorized Specialty Diagnoses / Procedures Referred By Contac t Referred To Contact Nephrology Diagnoses History of proteinuria syndrome care, subsequent , second trimester Staci Jain MD [address] [address] Phone: tel: fax: [facility] Nephrology, Bone & Mineral Metabolism [address] [facility], [address] [place] [address] Phone: tel: fax: Referral ID Status Reason Start Date Expiration Date Visits Requested Visits Authorized [id number] Authorized Specialty Services Required 07/22/2024 01/21/2026 1 1 Encounter Details Date Type Department Care Team (Late st Contact Info) Description 07/22/2024 [facility] [address] [place] [address] Staci Jain MD [address] [place] [address] History of proteinuria syndrome (Primary Dx); care, [...]
--- OUTSIDE RECORDS SUMMARY | 2024-09-14 11:39 | XMS_ITS | Clinical Summary ---
Author Organization [facility] [place] [address] Phone Care Team Providers Care Computer Compositor Name Role Phone Unavailable Primary Care Provider [...] migh t be different from the original. [facility] - Edwardo Ojeda MD Interventional Pain Protocol: NS Appt 03/29/22 Letter Sent Maxime report completed (EVERY 3 MONTHS) ( 03/23/22) Pharmacy: [facility] [address] [place] [phone] [phone] [facility] south - [phone] No known active problems Social History Tobacco [...] patient's age to complete this topic Insurance [employer] [facility] [place] [address] [place] [id number] [facility] [employer] [facility] [place]
--- OUTSIDE RECORDS SUMMARY | 2024-09-14 11:40 | XMS_ITS | Clinical Summary ---
Author Organization [facility] Address [address] [place] [address] Care Team Providers Care Pathology Secretary/Transcriptionist Name Role Phone Unavailable Primary Care Provider Unavailabl e Source Comments [facility] is fully rolled out with thefollowing exceptions:General Clinical Research [facility] Social History Tobacco Use Types Packs/Day [...]
--- OUTSIDE RECORDS SUMMARY | 2024-09-14 11:40 | XMS_ITS | Encounter Summary ---
[facility] Address [address] [place] [address] Care Team Providers Care Nursing Home Administrator Name Role Phone Ivyashlyn Norma FERNÁNDEZ Primary Care Provider + [phone] Encounter Details Date Type Department Care Team (Late st Contact Info) Description 08/27/2024 Telephone [facility] OBGYN [address] [place] [address] Staci Jain MD [address] [facility] [address] [place] [address] Social History Tobacco Use Types Packs/Day Years Used Date Smoking Tobacco: Never Smokeless Tobacco: Never Alcohol Use Standard Drinks/Week Comments Never 0 (1 standard drink = 0.6 oz pur e alcohol) [facility] Utilities Answer Date Recorded In the past 12 months has [employer], [employer], oil, or water [employer] threatened to shut off services in your [...] and heating? Not hard at all 05/28/2024 [facility] [place] of Occupat ional Health - Occupational Stress [...] Description 01/20/2025 3:30 PM EST Office Visit [facility] GASTROENTEROLOGY [address] [phone] Robbin Escalante MD [address] [address] documented as of this encounter Visit Diagnoses Diagnosis History of hypokalemia- Primary documented in this encounter Additional Health Concerns Assessment Noted Time PHQ-2 Depression Total Score: 2 05/28/19 25 4:39 PM EDT documented as of this encounter Care Teams Nursing Home Administrator Relationship Specialty Start Date End Date Norma Friedman APRN [address] [place] [place] [id number] PCP - General Family Medicine 05/14/24 documented as of this encounter
--- OUTSIDE RECORDS SUMMARY | 2024-09-14 11:40 | XMS_ITS | Encounter Summary ---
[facility] [address] [place] [address] Care Team Providers Care Polisher Numeral Name Role Phone Norma Friedman APRN Primary Care Provider + [phone] Encounter Details Date Type Department Care Team (Late st Contact Info) Description 08/19/2024 Telephone [facility] OBGYN [address] [place] [address] Jacey Mathews, STAGE SETTINGS PAINTER [address] [facility] [address] [place] [address] Social History Tobacco Use Types Packs/Day Years Used Date Smoking Tobacco: Never Smokeless Tobacco: Never Alcohol Use Standard Drinks/Week Comments Never 0 (1 standard drink = 0.6 oz pur e alcohol) [facility] Utilities Answer Date Recorded In the past 12 months has [employer], [employer], oil, or water [employer] threatened to shut off services in your [...] all 05/28/2024 [facility] of Occupat ional [facility] - Occupational Stress Questionnaire Answer Date [...] EST Office Visit [facility] GASTROENTEROLOG[facility] [address] [address] Robbin Escalante MD [address] [address] documented as of this encounter Visit Diagnoses Not on filedocumented in this encounter Additional Health Concerns Assessment Noted Time PHQ-2 Depression Total Score: 2 05/28/19 25 4:39 PM EDT documented as of this encounter Care Teams Polisher Numeral Relationship Specialty Start Date End Date Norma Friedman APRN [address] [place] [address] [place] [address] PCP - General Family Medicine 05/14/24 documented as of this encounter
--- OUTSIDE RECORDS SUMMARY | 2024-09-14 11:40 | XMS_ITS ---
Author Organization [facility] Address [address] [place] [address] Care Team Providers Care Flight Follower Name Role Phone Unavailable Primary Care Provider Unavailabl e Transplant Episode Kidney Potential Donor [facility] ([place], [place]) - [facility] Referred on 05/03/2022 Marked as Deferred on 05/04/2022 Reason: Other Kidney CoordinatorNadine Augustin R.N. Phone: N/A Fax: N/A Email: N/A Care Team Name Role Phone Fax Email Nadine Augustin R.N. Kidney Coordinator N/A N/A N/A Events Pre-Donation Referred: 05/03/2022
--- OUTSIDE RECORDS SUMMARY | 2024-09-14 11:40 | XMS_ITS | Referral Summary ---
Author Organization [employer] ([place], [place], [place], [place]) Address [address] [place] [address] Care Team Providers Care Frame Bender Name Role Phone Unavailable Primary Care Provider [...]
--- OUTSIDE RECORDS SUMMARY | 2024-09-14 11:40 | XMS_ITS | Encounter Summary ---
[facility] [address] [place] [id number] Care Team Providers Care Help Desk Consultant Name Role Phone Ivyashlyn Norma FERNÁNDEZ Primary Care Provider + [phone] Encounter Details Date Type Department Care Team (Late st Contact Info) Description 08/28/2024 Telephone [facility] OBGYN [address] [address] Staci Jain MD [address] [place] [id number] Social History Tobacco Use Types Packs/Day Years Used Date Smoking Tobacco: Never Smokeless Tobacco: Never Alcohol Use Standard Drinks/Week Comments Never 0 (1 standard drink = 0.6 oz pur e alcohol) [facility] Utilities Answer Date Recorded In the past 12 months has [employer], [employer], oil, or water [employer] Anywhere threatened to shut off services in your [...] and heating? Not hard at all 05/28/2024 [facility] of Occupat ional Health - Occupational [...] sit with a family member admitted to [facility] today and does not know if she can make it back for labs (BMP). She does have an appt in [facility] at 10 am tomorrow. Advisedthat it [...] states she was supposed to come into [place] office today to have labs drawn however sheis currently hung up at [facility] is wondering if she could just have labs drawn there? documented in this encounter Plan of Treatment Upcoming Encounters Date Type Department Care Team (Late st Contact Info) Description 01/20/2025 3:30 PM EST Office Visit [facility] [address] [facility] [address] [place] [address] Robbin Escalante MD [address] [facility] [address] [place] [address] documented as of this encounter Visit Diagnoses Not on filedocumented in this encounter Additional Health Concerns Assessment Noted Time PHQ-2 Depression Total Score: 2 05/28/19 25 4:39 PM EDT documented as of this encounter Care Teams Help Desk Consultant Relationship Specialty Start Date End Date Norma Friedman APRN [address] [place] [address] [place] [address] PCP - General Family Medicine 05/14/24 documented as of this encounter"
--- OUTSIDE RECORDS SUMMARY | 2024-09-14 11:40 | XMS_ITS | Encounter Summary ---
Author Organization [facility]: [address] Address [address] [place] [address] Care Team Providers Care Animal Care Technician Name Role Phone Elder Norma FERNÁNDEZ Primary Care Provider + [phone] Encounter Details Date Type Department Care Team (Latest Contact Info) Description 08/29/2024 Travel Social History Tobacco Use Types Packs/Day Years Used Date Smoking Tobacco: Never Smokeless Tobacco: Never Alcohol Use Standard Drinks/Week Comments Never 0 (1 standard drink = 0.6 oz pur e alcohol) [facility] Utilities Answer Date Recorded In the past 12 months has [employer], gas, oil, or water company threatened [...] and heating? Not hard at all 05/28/2024 [facility] Occupat ional Health - Occupational Stress [...] GED or equivalent No 05/28/2024 Preferred Language Dominican 05/28/2024 PHQ-2 Answer Date Recorded Patient Health [...] 3:30 PM EST Office Visit [facility] [address] [facility] [address] [place] [id number] Robbin Escalante MD [address] [facility] [address] [place] [address] documented as of this encounter Visit Diagnoses Not on filedocumented in this encounter Additional Health Concerns Assessment Noted Time PHQ-2 Depression Total Score: 2 05/28/19 25 4:39 PM EDT documented as of this encounter Care Teams Animal Care Technician Relationship Specialty Start Date End Date Norma Friedman APRN [address] [place] G3 RAFAELA APPIAH [id number] PCP - General Family Medicine 05/14/24 documented as of this encounter
--- OUTSIDE RECORDS SUMMARY | 2024-09-14 11:40 | XMS_ITS | Clinical Summary ---
Author Organization [facility] Address [address] [place] [address] Care Team Providers Care Director Of Teaching And Learning Name Role Phone Norma Friedman APRN Primary Care Provider [phone] Allergies Active Allergy Reactions Criticality Noted Date [...] Department Care Team Description 5 Results Follow-Up [facility] OBGYN [address] [place] [address] Rob Wharton MD 5 Telephone [facility] [address] [facility] [address] [place] [address] Rob Wharton MD 5 10:00 AM EDT Routine [facility] OBGYN [address] [place] [address] Rob Wharton MD GA: 26w4d 5 Travel 5 Telephone [facility] [address] [facility] [address] [place] [address] Rob Wharton MD 5 Telephone [facility] O[facility] [address] [place] [address] Rob Wharton MD 5 1:44 PM EDT Anesthesia Event [facility] ENDO SUITES [address] [place] [address] Akash Anguiano MD Lanham, John, CRNA 5 1:33 PM EDT - 5 2:05 PM EDT Surgery [facility] ENDO SUITES [address] [place] [address] Blu Alvarado MD ESOPHAGOGASTRODUODENOSCOPY [87630 (CPT )] 5 1:59 PM EDT - 5 4:28 PM EDT Hospital Encounter [facility] ANTEPARTUM [address] [place] [address] Rob Wharton MD Brunner, Mark I, MD Dysphagia, unspecified type (Primary Dx) Discharge Disposition: Home or Self Care 5 10:15 AM EDT Routine [facility] OBGYN [address] [place] [address] Jacey Mathews, STRATEGY ASSOCIATE GA: 25w1d 5 Telephone [facility] OBGYN [address] [place] [address] Jacey Mathews, STRATEGY ASSOCIATE 5 Travel 5 Patient Outreach [facility] LABOR DELIVERY [address] [place] [address] Christy Zabala RN 5 9:10 AM EDT Routine [facility] OBGYN [address] [facility] [address] [place] [address] Rob Wharton MD GA: 21w1d 5 8:00 AM EDT Office Visit [facility] MATERNAL MEDICINE [address] [facility] [address] [place] [address] Sebastian Larsen MD History of prior with small for gestational age (Primary Dx) 5 7:44 AM EDT - 5 11:59 PM EDT Hospital Encounter [facility] US PER DIAG CTR [address] [place] [address] Kelly Delgado, STRATEGY ASSOCIATE care, antepartum, unspecified ; High risk due to history of labor, antepartum; History of prior with small for gestational age Discharge Disposition: Home or Self Care 5 Travel 5 Results Follow-Up [facility]YN [address] [facility] [address] [place] [address] Kelly Delgado, JOLENE 5 10:10 AM EDT Routine [facility] O[facility]YN [address] [facility] [address] [address] [place] [address] Kelly Delgado, STRATEGY ASSOCIATE GA: 18w5d 5 9:30 AM EDT Ancillary Procedure [facility] OBGYN [address] [facility] [address] [place] [id number] care in second trimester, unspecified 5 Travel 5 Telephone [facility] OBGYN [address] [facility] [address] [place] [address] Uriel Russ MD TRANSFER OF CARE REQ 5 10:15 PM EDT - 5 11:59 PM EDT Hospital Encounter [facility] LABOR DELIVERY [address] [place] [id number] Rob Wharton MD Mirsky, Elizabeth, MD Discharge Disposition: Home or Self Care 5 Travel 5 Telephone [facility] OBGYN [address] [facility] [address] [place] [address] Uriel Russ MD [facility], OB 5 Telephone [facility] OBGYN [address] [place] [address] Uriel Russ MD [facility] 5 E-Visit [facility] DE[facility] [address] [place] [address] E-VisitToni MD 5 Results Follow-Up [facility] OBGYN [address] [place] [address] Uriel Russ MD 5 3:20 PM EDT Routine [facility] OBGYN [address] [place] [address] Uriel Russ MD GA: 17w2d 5 3:00 PM EDT Ancillary Procedure [facility] OBGYN [address] [place] [address] Bleeding in early (Primary Dx) 5 Travel 5 Telephone [facility] OBGYN [address] [place] [address] Uriel Russ MD from Last 3 Months Family History Medical [...] Recorded In the past 12 months has Onavo, gas, oil, or water [employer] threatened to shut off services in your [...] and heating? Not hard at all 05/28/2024 [place] [facility] - Occupational Stress [...] Visit [facility] GASTROENTEROLOGY [address] [address] Robbin Escalante MD [address] [address] Health Maintenance Due Date Last Done Comments [...] 08/20/2024 1:55 PM EDT Dysphagia, unspecified type RI ESOPHAGOGASTRODUODENOSCOP Y TRANSORAL DIAGNOSTIC 08/20/2024 1:44 PM EDT Dysphagia, unspecified type UPPER GI ENDOSCOPY 08/20/2024 1:09 PM EDT BASIC METABOLIC PANEL STAT 08/20/2024 5:25 AM EDT POTASSIUM STAT 08/19/2024 8:53 PM EDT ABORH 2ND SPECIMEN VERIFICATION STAT 08/19/2024 4:34 PM EDT NONSTRESS TEST Routine 08/19/2024 4:17 PM EDT [facility] Routine 08/19/2024 3:25 [...] 10:02 AM EDT Multigravida in second trimester [facility] DI[facility]NO[facility]IC [facility] Routine 07/22/2024 9:10 AM [...] PM EDT care in second trimester, unspecified HEPATITIS C ANTIBODY Routine 04/12/2024 from Last 3 Months or Most Recently Relevant to Health Maintenance Results * (ABNORMAL) CBC & Differential (08/29/2024 11:05 AM EDT) Only the most recent of2 resultswithin the time period is included. Pathologist [facility] WBC 9.26 3.40 - 10.80 10*3/mm3 [facility] [...] 6:09 AM EDT Performed at: 01 - [address] [id number] Poultry Killer: Kevin Harman MD, Phone: [phone] Patient Fasting: N us Rob Wharton MD LAB BLOOD ORDERABLES Final Result [facility] (AMBULATORY) [address] [place] [address], [place] [phone] [facility] [address] [place] [address], [place] [phone] * (ABNORMAL) Comprehensive Metabolic Panel (08/29/2024 11:05 AM EDT) Only the most recent of3 resultswithin the time period is included. [facility] Glucose 72 65 - 99 mg/dL [...] - 08/30/2024 6:09 AM EDT Performed at: [address] [place] [id number] Poultry Killer: Kevin Harman MD, Phone: [phone] Patient Fasting: N Rob Wharton MD LAB BLOOD ORDERABLES Final Result Performing Organization Address [facility] Co de Phone Number [facility] (AMBULATORY) [address] [place] [address], [place] [phone] [facility] [address] [place] [address], [place] [phone] * (ABNORMAL) POC Urinalysis Dipstick (08/29/2024 10:13 AM EDT) Only the most recent of5 resultswithin the time period is included. Glucose, UA Negative Negative mg/dL [facility] LABORATORY Protein, POC Trace(A) Negative mg/dL [facility] LABOR[facility]ORY Urine 08/29/2024 10:1 3 AM EDT Rob Wharton MD POINT OF CARE TEST OR DERABLES Final Result Performing Organization Address City/[facility]/ZIP Co de Phone Number [facility] LABORATORY
[address] [place] [address], [place] [phone] * BH AN ETT AIRWAY (08/20/2024 2:02 PM EDT) Narrative Liborio Peralta CRNA - 08/20/2024 2:02 PM EDT Liborio Peralta CRNA 08/20/2024 2:03 PM Airway Reason: elective Date/Time: 08/20/2024 2:02 PM Airway not difficult General Information and Staff Patient location during procedure: OR LEAD DIE MOLDER/CAA: Junior Zbigniew Wharton CRNA Indications and Patient [...] bilaterally with symmetric chest rise and fall [facility] LEAD DIE MOLDER ANESTHESIA ORDERABLES Final Res ult * Tissue Pathology Exam (08/20/2024 1:55 PM EDT) Case Report Surgical Pathology Report Case: [id number] Authorizing Provider: Blu Alvarado MD Collected: 08/20/2024 01:55 PM Ordering Location: [facility] Received: 08/20/2024 02:14 PM ENDO SUITES Pathologist: Khalida Rhoades DO Specimen: Gastric, Antrum, antrum bx for path 08/22/2024 9:18 AM EDT [facility] LABORATORY Clinical Information Dysphagia, unspecified type 08/22/2024 9:18 AM EDT [facility] LABOR[facility] Final Diagnosis Stomach, antrum, biopsy: 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 pylori is negative (no organisms are identified) Negative for intestinal metaplasia, dysplasia, or malignancy 08/22/2024 9:18 AM EDT [facility] LABORATORY at 0918 EDT Gross Description 1. Gastric, Antrum. Received in formalin labeled antrum biopsy is a 0.4 x 0.2 x 0.2 cm pink-see soft tissue fragment submitted entirely in a single cassette. HDM 08/22/2024 9:18 AM EDT [facility] LABOR[facility]ORY Microscopic Description The slides are reviewed and demonstrate histopathologic features supporting the above rendered diagnosis. 08/22/2024 9:18 AM EDT [facility] LABOR[facility] Tissue Pyloric antrum structure / Unknown 08/20/2024 1:55 PM EDT 08/20/2024 2:14 PM EDT us Blu Alvarado MD PATHOLOGY/CYTOLOGY ORDERABLES Final Result [facility] LABORATORY
[address] [place] [address], * Upper GI Endoscopy (08/20/2024 1:09 PM EDT) us Blu Alvarado MD INTERFACE NEEDS Final Result * (ABNORMAL) Basic Metabolic Panel (08/20/2024 5:25 AM EDT) Glucose 84 65 - 99 mg/dL 08/20/2024 6:13 AM EDT [facility] BUN 2.3(L) 6.0 - 20.0 mg/dL 08/20/2024 6:13 AM EDT [facility] Creatinine 0.51(L) 0.57 - 1.00 mg/dL 08/20/2024 6:13 AM EDT [facility] LAB[facility] Sodium 139 136 - 145 mmol/L 08/20/2024 6:13 AM EDT [facility] Potassium 3.5 3.5 - 5.2 mmol/L 08/20/2024 6:13 AM EDT [facility] LAB[facility] Chloride 109(H) 98 - 107 mmol/L 08/20/2024 6:13 AM EDT [facility] CO2 23.5 22.0 - 29.0 mmol/L 08/20/2024 6:13 AM EDT [facility] LAB[facility] Calcium 7.8(L) 8.6 - 10.5 mg/dL 08/20/2024 6:13 AM EDT [facility] LABOR[facility] BUN/Creatinine Ratio 4.5(L) 7.0 - 25.0 08/20/2024 6:13 AM EDT [facility] LABOR[facility] Anion Gap 6.5 5.0 - 15.0 mmol/L 08/20/2024 6:13 AM EDT [facility] LABOR[facility] eGFR 126.6 >60.0 mL/min/1.7 3 08/20/2024 6:13 AM EDT [facility] LABOR[facility] Blood Venipuncture / Unknown 08/20/2024 5:25 AM EDT 08/20/2024 5:46 AM EDT [facility] LABORATORY - 08/20/2024 6:13 AM EDT GFR [...] MD LAB BLOOD ORDERABLES Final Resu lt [facility] LABORATORY
[address] [place] [address], * (ABNORMAL) Potassium (08/19/2024 8:53 PM EDT) Potassium 2.7(L) 3.5 - 5.2 mmol/L 08/19/2024 9:20 PM EDT [facility] LABOR[facility] Blood Venipuncture / Unknown 08/19/2024 8:53 PM EDT 08/19/2024 9:04 PM EDT Kt Fan DO LAB BLOOD ORDERABLES Final Result Performing Organization Address City/[facility]/ZIP Co de Phone Number [facility] LABORATORY
[address] [place] [address], * ABO RH Specimen Verification (08/19/2024 4:34 PM EDT) ABO Type O 08/19/2024 7:39 PM EDT [facility] BB LABORATORY RH type Positive 08/19/2024 7:39 PM EDT [facility] BB LABORATORY Blood Venipuncture / Unknown 08/19/2024 4:34 PM EDT 08/19/2024 4:53 PM EDT Rob Wharton MD BLOOD BANK TEST ORDER FRANCO Final Result Performing Organization Address [facility] de Phone Number [facility] LABORATORY
[address] [place] [address], * [facility] (08/19/2024 3:25 PM EDT) Only the most recent of2 resultswithin the time period is included. Anatomical Region Laterality Modality Ultrasound 08/19/2024 3:09 PM EDT Narrative 08/19/2024 4:54 PM EDT PAT NAME: CAROLE GIRARD MED REC#: [id number] DA: [id number] PAT GEND: F PAT TYPE: E EXAM TRAVIS: [id number] REF PHYS ROB WHARTON Comparison Studies The [...] EFW (oz) 9 oz EFW by: Hadlock ([id number]) Extended Cav. septi pel. tr 4.7 mm Medical Imaging Technologist 3.8 mm CM 7.5 mm 84% Nicolaides [...] Heart / Thorax 3-vessel view: Appears normal 1-lfsoji-rnkdoga view: Appears normal Stomach: Appears normal Kidneys: [...] in 4wks for growth. Coding ======= Description: 85519-48 Follow Up Assembler 1St Shift: RT Annetta Hartmann , [facility] Physician: Jo Chappell MD Electronically signed by: Jo Chappell MD at: 16:54 Procedure Note Jo Chappell MD - 08/19/2024 PAT NAME: CAROLE GIRARD MED REC#: [id number] DA: [id number] PAT GEND: F PAT TYPE: E EXAM TRAVIS: [id number] REF PHYS ROB WHARTON Comparison Studies The findings of this study are compared to the prior ultrasound studydated 07/22/24 Patient Status Inpatient Indication ======== History of c/s x1. History of . Vaginal bleeding. Maternal Assessment Wubvub557 cm Height (ft)5 ft Height (in)4 in Nancvq69 kg Weight (lb)158 lb BMI27.31 kg/m Method ======= Transabdominal ultrasound examination. View: Limited by patient bodyhabitus ========= Love . Number of fetuses: 1 Dating ====== Method of dating:based on stated DUSTY GA by prior [id number] w + 1 d DUSTY by prior [...] Hadlock Femur44.9 mm 24w 6d 27% Hadlock Sghdigq49.3 mm 25w 3d 50% Jamal HC / AC1.16 UFF746 g 24w 2d 16% Hadlock EFW (lb)1 lb EFW (oz)9 oz EFW by:Hadlock ([id number]) Extended Cav. septi pel. tr4.7 mm Vp3.8 mm CM7.5 mm 84% Nicolaides Head / Face / Neck Cephalic index0.71 <1% Nicolaides Extremities / Bony Struc FL / BPD0.78 FL / HC0.20 FL / AC0.23 Other Structures [id number] bpm General Evaluation Cardiac activity present. FHR [...] normal Heart / Thorax 3-vessel view:Appears normal 2-pqzbtc-eeiwtko view:Appears normal Stomach:Appears normal Kidneys:Appears normal Bladder:Appears [...] office in 4wks for growth. Coding ======= Description:81511-51 Follow Up Assembler 1St Shift: RT Annetta Hartmann , [facility] Physician: Jo Chappell MD Electronically signed by: Jo Chappell MD at: 16:54 us Kt Fan DO [facility] US ORDERABLES Final Res ult * Urinalysis, Microscopic Only - Urine, Clean Catch (08/19/2024 3:02 PM EDT) Only the most recent of2 resultswithin the time period is included. RBC, UA 0-2 None Seen, 0-2 /HPF 08/19/2024 3:33 PM EDT [facility] LABOR[facility] WBC, UA 0-2 None Seen, 0-2 /HPF 08/19/2024 3:33 PM EDT [facility] LAB[facility] Bacteria, UA None Seen None Seen /HPF 08/19/2024 3:33 PM EDT [facility] Squamous Epithelial Cells, UA 0-2 None Seen, 0-2 /HPF 08/19/2024 3:33 PM EDT [facility] Hyaline Casts, UA None Seen None Seen /LPF 08/19/2024 3:33 PM EDT [facility] Methodology Automated Microscopy 08/19/2024 3:33 PM EDT [facility] LAB[facility] Urine Urine specimen obtained by clean catch procedure / Unknown Collection / Unknown 08/19/2024 3:02 PM EDT 08/19/2024 3:13 PM EDT us Kt Fan DO URINE ORDERABLES Final Resu lt [facility] LABORATORY
[address] [place] [id number], [place] [phone] * (ABNORMAL) Urinalysis With Microscopic If Indicated (No Culture) - Urine, Clean Catch (08/19/2024 3:02 PM EDT) Only the most recent of2 resultswithin the time period is included. Color, UA Yellow Yellow, Straw 08/19/2024 3:33 PM EDT [facility] LABOR[facility] Appearance, UA Clear Clear 08/19/2024 3:33 PM EDT [facility] pH, UA >=9.0(H) 5.0 - 8.0 08/19/2024 3:33 PM EDT [facility] Specific [place], UA 1.018 1.005 - 1.030 08/19/2024 3:33 PM EDT [facility] Glucose, UA Negative Negative 08/19/2024 3:33 PM EDT [facility] Ketones, UA 15 mg/dL (1+)(A) Negative 08/19/2024 3:33 PM EDT [facility] Bilirubin, UA Negative Negative 08/19/2024 3:33 PM EDT [facility] Blood, UA Negative Negative 08/19/2024 3:33 PM EDT [facility] Protein, UA 30 mg/dL (1+)(A) Negative 08/19/2024 3:33 PM EDT [facility] Leuk Esterase, UA Negative Negative 08/19/2024 3:33 PM EDT [facility] Nitrite, UA Negative Negative 08/19/2024 3:33 PM EDT [facility] Urobilinogen, UA 1.0 E.U./dL 0.2 - 1.0 E.U./dL 08/19/2024 3:33 PM EDT [facility] LABOR[facility] Urine Urine specimen obtained by clean catch procedure / Unknown Collection / Unknown 08/19/2024 3:02 PM EDT 08/19/2024 3:13 PM EDT Kt Fan DO URINE ORDERABLES Final Resu lt [facility] LABORATORY
[address] [place] [address], * (ABNORMAL) CBC Auto Differential (08/19/2024 3:02 PM EDT) WBC 9.19 3.40 - 10.80 10*3/mm3 08/19/2024 3:23 PM EDT [facility] RBC 3.58(L) 3.77 - 5.28 10*6/mm3 08/19/2024 3:23 PM EDT [facility] Hemoglobin 10.5(L) 12.0 - 15.9 g/dL 08/19/2024 3:23 PM EDT [facility] Hematocrit 31.4(L) 34.0 - 46.6 % 08/19/2024 3:23 PM EDT [facility] MCV 87.7 79.0 - 97.0 fL 08/19/2024 3:23 PM EDT [facility] MCH 29.3 26.6 - 33.0 pg 08/19/2024 3:23 PM EDT [facility] MCHC 33.4 31.5 - 35.7 g/dL 08/19/2024 3:23 PM EDT [facility] RDW 13.4 12.3 - 15.4 % 08/19/2024 3:23 PM EDT [facility] LAB[facility] RDW-SD 42.4 37.0 - 54.0 fl 08/19/2024 3:23 PM EDT [facility] MPV 12.0 6.0 - 12.0 fL 08/19/2024 3:23 PM EDT [facility] Platelets 241 140 - 450 10*3/mm3 08/19/2024 3:23 PM EDT [facility] Neutrophil % 66.8 42.7 - 76.0 % 08/19/2024 3:23 PM EDT [facility] Lymphocyte % 24.4 19.6 - 45.3 % 08/19/2024 3:23 PM EDT [facility] Monocyte % 7.6 5.0 - 12.0 % 08/19/2024 3:23 PM EDT [facility] Eosinophil % 0.7 0.3 - 6.2 % 08/19/2024 3:23 PM EDT [facility] Basophil % 0.2 0.0 - 1.5 % 08/19/2024 3:23 PM EDT [facility] Immature Grans % 0.3 0.0 - 0.5 % 08/19/2024 3:23 PM EDT [facility] Neutrophils, Absolute 6.14 1.70 - 7.00 10*3/mm3 08/19/2024 3:23 PM EDT [facility] Lymphocytes, Absolute 2.24 0.70 - 3.10 10*3/mm3 08/19/2024 3:23 PM EDT [facility] Monocytes, Absolute 0.70 0.10 - 0.90 10*3/mm3 08/19/2024 3:23 PM EDT [facility] Eosinophils, Absolute 0.06 0.00 - 0.40 10*3/mm3 08/19/2024 3:23 PM EDT [facility] Basophils, Absolute 0.02 0.00 - 0.20 10*3/mm3 08/19/2024 3:23 PM T [facility] Immature Grans, Absolute 0.03 0.00 - 0.05 10*3/mm3 08/19/2024 3:23 PM EDT [facility] nRBC 0.0 0.0 - 0.2 /100 WBC 08/19/2024 3:23 PM [facility] LABOR[facility] Blood Line / Unknown 08/19/2024 3: 02 PM EDT 08/19/2024 3:10 PM EDT Kt Fan DO LAB BLOOD ORDERABLES Final Result Performing Organization Address City/[facility]/ZIP Co de Phone Number [facility] LABORATORY
[address] [place] [address], [place] [phone] * Protein / Creatinine Ratio, Urine - [...] Resu lt [facility] LABORATORY
[address] [place] [address], [place] [phone] * Type & Screen (08/19/2024 3:02 PM EDT) ABO Type O 08/19/2024 3:51 PM EDT [facility] BB LABORATORY RH type Positive 08/19/2024 3:51 PM EDT [facility] LABORATORY Antibody Screen Negative 08/19/2024 3:51 PM EDT [facility] LABORATORY T&S Expiration Date 08/22/2024 11:59:59 PM 08/19/2024 3:51 PM EDT [facility] LABORATORY Blood Line / Unknown 08/19/2024 3: 02 PM EDT 08/19/2024 3:15 PM EDT us Kt Cavazos Mita SHAH BLOOD BANK TEST ORDERABLES Edited Result - Final Performing Organization Address [facility] de Phone Number [facility] LABORATORY
[address] [place] [address], [place] [phone] * (ABNORMAL) Magnesium (08/19/2024 3:02 PM EDT) Magnesium 1.5(L) 1.6 - 2.6 mg/dL 08/19/2024 5:12 PM EDT [facility] Blood Line / Unknown 08/19/2024 3: 02 PM EDT 08/19/2024 3:10 PM EDT us Kt Fan DO LAB BLOOD ORDERABLES Final Result Performing Organization Address [facility] Phone Number [facility] LABORATORY
[address] [place] [address], [place] [phone] * Lipase (08/19/2024 3:02 PM EDT) Lipase 13 13 - 60 U/L 08/19/2024 3:36 PM EDT [facility] Blood Line / Unknown 08/19/2024 3: 02 PM EDT 08/19/2024 3:10 PM EDT us Kt Cavazos Mita SHAH LAB BLOOD ORDERABLES Final Result Performing Organization Address [facility] Co de Phone Number [facility] LABORATORY
[address] [place] [address], [place] [phone] * Amylase (08/19/2024 3:02 PM EDT) Amylase 73 28 - 100 U/L 08/19/2024 3:36 PM EDT [facility] Blood Line / Unknown 08/19/2024 3: 02 PM EDT 08/19/2024 3:10 PM EDT us Kt Fan DO LAB BLOOD ORDERABLES Final Result [facility] LABORATORY
[address] [place] [address], * [place] Ob 14 + Weeks Single or First Gestation (07/05/2024 10:17 AM EDT) Anatomical Region Laterality Modality Body Ultrasound 07/05/2024 10:2 8 AM EDT Narrative 07/09/2024 7:02 PM EDT PAT NAME: CAROLE GIRARD MED REC#: [id number] DA: [id number] PAT GEND: F PAT TYPE: O EXAM TRAVIS: [id number] REF PHYS URIEL RUSS Functional Mental Disability Teacher Comments Still need heart views and PCI [...] EFW (oz) 9 oz EFW by: Hadlock ([id number]) Extended Medical Imaging Technologist 6.4 mm CM 3.3 mm 11% Nicolaides [...] Heart / Thorax 3-vessel view: not visualized 9-smqlbo-xjadpkz view: not visualized Diaphragm: Appears normal Diaphragm: [...] subsequent visit to complete the anatomic screening. Functional Mental Disability Teacher: Soo Harding RDMS Physician: Uriel Russ II, MD, FACOG Electronically signed by: Uriel Russ II, MD, FACOG at: 19:02 Procedure Note Uriel Russ MD - 07/09/2024 PAT NAME: CAROLE GIRARD MED REC#: [id number] DA: [id number] PAT GEND: F PAT TYPE: O EXAM TRAVIS: [id number] REF PHYS URIEL RUSS Functional Mental Disability Teacher Comments Still need heart views and PCI N/L, Kidneys, Legs suboptimal Indication ======== anatomy survey Comparison Studies There are no relevant prior studies to which this study is beingcompared Method ======= [place] E6, Transabdominal ultrasound examination. View: Suboptimal view:limited by early gestational age ========= Love . Number of fetuses: 1 Dating ====== Method of dating:based on stated DUSTY GA by prior [id number] w + 5 d DUSTY by prior assessment:12/01/2024 Ultrasound examination on:07/05/2024 GA by U/S based upon:AC, BPD, Femur, HC GA by U/S18 w + 3 d DUSTY by U/S:12/03/2024 Previous dating:based on stated DUSTY, selected on 06/25/2024 Agreed DUSTY of previous datin12/01/2024 Assigned:based on stated DUSTY, selected on 07/05/2024 Assigned [id number] w + 5 d Assigned DUSTY:12/01/2024 [id number] d General Evaluation Cardiac activity present. FHR [...] 67% Hadlock HC / AC1.13 20% Hadlock [id number] g 18w 6d 56% Hadlock EFW (lb)0 lb EFW (oz)9 oz EFW by:Hadlock ([id number]) Extended Vp6.4 mm CM3.3 mm 11% Nicolaides Extremities / Bony Struc FL / BPD0.80 >99% Hadlock FL / HC0.20 98% Hadlock FL / AC0.23 89% Hadlock Other Structures LSR923 bpm Anatomy Cranium:Appears normal Lateral ventricles:Appears normal Choroid plexus:Appears normal Midline falx:Appears normal Cavum septi pellucidi:Appears normal Cerebellum:Appears normal Cisterna magna:Appears normal Lips:suboptimal Profile:Appears normal Nose:suboptimal 4-chamber view:not visualized RVOT view:not visualized LVOT view:not visualized Heart / Thorax 3-vessel view:not visualized 6-tzibhr-uiympfa view:not visualized Diaphragm:Appears normal Diaphragm:Intact Cord insertion:Appears [...] a subsequent visit tocomplete the anatomic screening. Functional Mental Disability Teacher: Soo Harding RDMS Physician: Uriel Russ II, MD, FACOG Electronically signed by: Uriel Russ II, MD, FACOG at: 9:02 us Uriel Russ MD [facility] US ORDERABLES Final Result * Urine Culture [...] / Unknown 07/05/2024 07/05/2024 Comment:Urine Release to [facility] i Narrative [facility] - 07/07/2024 3:35 AM EDT Performed at: [address] [place] [id number] Poultry Killer: Michael Martinez PhD, Phone: [phone] us Kelly Delgado APRN MICROBIOLOGY - GENERAL ORDER FRANCO Final Result [facility] [address] [place] [address], [facility] [address] [place] [address], * Tryptase (06/25/2024 4:34 PM EDT) Tryptase 6.1 2.2 - 13.2 ug/L [facility] Blood 06/25/2024 4:34 PM EDT 06/25/2024 Narrative [facility] (AMBULATORY) - 06/28/2024 9:10 AM EDT Performed at: 01 - [address] [id number] Poultry Killer: Fang Yu MD, Phone: [phone] Uriel Russ MD LAB BLOOD ORDERABLES Final Resu lt [facility] [address] [place] [address], [facility] [address] [place] [address], * Vitamin D,25-Hydroxy (06/25/2024 4:34 PM EDT) 25 Hydroxy, Vitamin D 33.7 30.0 - 100.0 ng/mL [facility] Comment: Vitamin D deficiency has been defined by the [place] of Medicine and an Endocrine Society practice guideline as a level of serum 25-OH vitamin D less than 20 ng/mL (1,2). The Endocrine Society went on to further define vitamin D insufficiency as a level between 21 and 29 ng/mL (2). 1. IOM ([employer] of Medicine). 2010. Dietary reference intakes for calcium and D. [place]: The National Academies Press. 2. Halle MF, [place] MEHTA, Wade MITCHELL, et al. Evaluation, treatment, and prevention of vitamin D deficiency: an Endocrine Society clinical practice guideline. JCEM. 2010; 96(7):1911-30. Blood 06/25/2024 4:34 PM EDT 06/25/2024 Narrative [facility] ([facility]) - 06/26/2024 7:37 AM EDT Performed at: [address] [place] [id number] Poultry Killer: Michael Martinez PhD, Phone: [phone] us Uriel Russ MD LAB BLOOD ORDERABLES Final Resu lt Performing Organization Address [facility] Co de Phone Number [facility] [address] [place] [address], [facility] [address] [place] [address], * TSH (06/25/2024 4:34 PM EDT) TSH 0.593 0.450 - 4.500 uIU/mL [facility] Blood 06/25/2024 4:34 PM EDT 06/25/2024 Narrative [facility] ([facility]ORY) - 06/26/2024 7:37 AM EDT Performed at: [address] [id number] Poultry Killer: Michael Martinez PhD, Phone: [phone] us Uriel Russ MD LAB BLOOD ORDERABLES Final Resu lt Performing Organization Address [facility] de Phone Number [facility] [address] [place] [address], [facility] [address] [place] [address], * T4, Free (06/25/2024 4:34 PM EDT) Free T4 1.09 0.82 - 1.77 ng/dL [facility] Blood 06/25/2024 4:34 PM EDT 06/25/2024 Narrative [facility] ([facility]) - 06/26/2024 7:37 AM EDT Performed at: 01 - [facility] [address] [place], [place] [id number] Poultry Killer: Michael Martinez PhD, Phone: [phone] us Uriel Russ MD LAB BLOOD ORDERABLES Final Resu lt [facility] [address] [place] [address], [place] [phone] [facility] [address] [place] [address], * (ABNORMAL) Hemoglobin A1c (06/25/2024 4:34 PM EDT) Hemoglobin A1C 4.7(L) 4.8 - 5.6 % [facility] Comment: Prediabetes: 5.7 - 6.4 Diabetes: >6.4 Glycemic control for adults with diabetes: <7.0 Blood 06/25/2024 4:34 PM EDT 06/25/2024 Narrative [facility] (AMBULATORY) - 06/26/2024 4:35 AM EDT Performed at: - [facility] [address] [place], [place] [id number] Poultry Killer: Michael Martinez PhD, Phone: [phone] us Uriel Russ MD LAB BLOOD ORDERABLES Final Resu lt Performing Organization Address City/[facility]/ZIP Co de Phone Number [facility] [address] [place] [address], [place] [phone] [facility] [address] [place] [address], [place] [phone] * (ABNORMAL) Lipid Panel (06/25/2024 4:34 PM EDT) Total Cholesterol 203(H) 100 - 199 mg/dL [facility] Triglycerides 125 0 - 149 mg/dL [facility] HDL Cholesterol 52 >39 mg/dL [facility] VLDL Cholesterol Rom 22 5 - 40 mg/dL [facility] LDL Chol Calc (NIH) 129(H) 0 - 99 mg/dL [facility] Blood 06/25/2024 4:34 PM EDT 06/25/2024 Narrative [facility] (AMBULATORY) - 06/26/2024 6:36 AM EDT Performed at: 01 - [facility] [address] [facility], [place], [place] [id number] Poultry Killer: Michael Martinez PhD, Phone: [phone] us Uriel Russ MD LAB BLOOD ORDERABLES Final Resu lt [facility] (AMBULATORY) [address] [place] [address], [facility] [address] [place] [address], * US Ob Limited 1 + Fetuses (06/25/2024 3:10 PM EDT) Anatomical Region Laterality Modality Body Ultrasound 06/25/2024 3:54 PM EDT Narrative 06/26/2024 1:34 PM EDT PAT NAME: CAROLE GIRARD MED REC#: [id number] DA: [id number] PAT GEND: F PAT TYPE: O EXAM TRAVIS: [id number] REF PHYS URIEL RUSS Indication ======== Heart [...] clinically indicated for the condition being monitored. Functional Mental Disability Teacher: RT Annetta Bruno, [facility] Physician: Uriel Russ II, MD, FACOG Electronically signed by: Uriel Russ II, MD, FACOG at: 13:34 Procedure Note Uriel Russ MD - 06/26/2024 PAT NAME: CAROLE GIRARD MED REC#: [id number] DA: 1990 PAT GEND: F PAT TYPE: O EXAM TRAVIS: [id number] REF PHYS URIEL RUSS Indication ======== Heart Tones Comparison Studies The findings of this study are compared to the prior ultrasound studydated 05/27/2024 Method ======= Transabdominal ultrasound examination. View: Suboptimal view: limited byfetal position ========= Love . Number of fetuses: 1 Dating ====== Method of dating:based on stated DUSTY GA by prior [id number] w + 2 d DUSTY by prior assessment:12/01/2024 Previous dating:based on stated DUSTY, selected on 05/27/2024 Agreed DUSTY of previous datin12/01/2024 Assigned:based on stated DUSTY, selected on 06/25/2024 Assigned [id number] w + 2 d Assigned DUSTY:12/01/2024 [id number] d General Evaluation Cardiac activity present. FHR 150 bpm. movements visualized. Presentation variable. Placenta Placental site: anterior. Amniotic fluid Amount of AF: normal. MVP 2.7 cm. Maternal Structures Uterus / Cervix Cervical jfjtju69.1 mm Impression heart tones 150. 17 weeks 2 days. EDC 12/01/2024. Single fetus.Cervical length 33 mm. Recommendation Follow-up scan as clinically indicated for the condition beingmonitored. Functional Mental Disability Teacher: RT Annetta Bruno, [facility] Physician: Uriel Russ II, MD, FACOG Electronically signed by: Uriel Russ II, MD, FACOG at: :34 Uriel Russ MD [facility] US ORDERABLES Final Result * Hepatitis C Antibody (04/12/2024) Hep C Virus Ab negative Blood Historical Provider LAB BLOOD ORDERABLES Lena l Result from Last 3 Months or Most Recently Relevant to Health Maintenance Insurance [employer]NA [facility] Care Teams Director Of Teaching And Learning Relationship Specialty Start Date End Date Norma Friedman APRN [address] [place] [address] [place] [address] PCP - General Family Medicine 05/14/24
--- OUTSIDE RECORDS SUMMARY | 2024-09-14 11:40 | XMS_ITS | Encounter Summary ---
[facility] Organization [facility] Address [address] [place] [id number] Care Team Providers Care Per Diem Rn Name Role Phone IvyKade goldbergjoseseven JOLENE Primary Care Provider + [phone] Encounter Details Date Type Department Care Team (Late st Contact Info) Description 07/25/2024 Patient Outreach [facility] DELIVERY [address] [place] [phone] Christy Zabala, RN Social History Tobacco Use Types Packs/Day Years Used Date Smoking Tobacco: Never Smokeless Tobacco: Never Alcohol Use Standard Drinks/Week Comments Never 0 (1 standard drink = 0.6 oz pur e alcohol) [facility] Utilities Answer Date Recorded In the [...] hard at all 05/28/2024 [facility] [place] of Occupat ional Health - Occupational Stress [...] Visit [facility] GASTROENTEROLOGY [address] [address] Robbin Escalante MD [address] [place] [address] [place] [address] documented as of this encounter Visit Diagnoses Not on filedocumented in this encounter Additional Health Concerns Assessment Noted Time PHQ-2 Depression Total Score: 2 05/28/19 25 4:39 PM EDT documented as of this encounter Care Teams Per Diem Rn Relationship Specialty Start Date End Date Norma Friedman APRN [address] [place] [address] [place] [address] PCP - General Family Medicine 05/14/24 documented as of this encounter
--- OUTSIDE RECORDS SUMMARY | 2024-09-14 11:40 | XMS_ITS | Encounter Summary ---
[facility] Organization [facility] Address [address] [place] [address] Care Team Providers Care Clinical Coordinator Name Role Phone Elder Norma FERNÁNDEZ Primary Care Provider + [phone] Encounter Details Date Type Department Care Team (Late st Contact Info) Description 07/07/2024 Results Follow-Up [facility] OBGYN [address] [place] [address] [place] [phone] Kelly Delgado APRN [address] [facility] [address] [place] [address] Social History Tobacco Use Types Packs/Day Years Used Date Smoking Tobacco: Never Smokeless Tobacco: Never Alcohol Use Standard Drinks/Week Comments Never 0 (1 standard drink = 0.6 oz pur e alcohol) [facility] Utilities Answer Date Recorded In the past 12 months has [employer], gas, oil, or water [employer] threatened to shut off services in your [...] and heating? Not hard at all 05/28/2024 [facility] of Occupat ional Health - Occupational [...] Office Visit [facility] [address] [facility] [address] [address] [address] Robbin Escalante MD [address] [address] documented as of this encounter Visit Diagnoses Not on filedocumented in this encounter Additional Health Concerns Assessment Noted Time PHQ-2 Depression Total Score: 2 05/28/19 25 4:39 PM EDT documented as of this encounter Care Teams Clinical Coordinator Relationship Specialty Start Date End Date Norma Friedman APRN [address] [place] [address] [place] [address] PCP - General Family Medicine 05/14/24 documented as of this encounter
--- OUTSIDE RECORDS SUMMARY | 2024-09-14 11:40 | XMS_ITS | Clinical Summary ---
Author Organization [employer] ([place], [place], [place], [place]) Address [address] [place] [address] Care Team Providers Care Casino Attendant Name Role Phone Unavailable Primary Care Provider [...]
--- OUTSIDE RECORDS SUMMARY | 2024-09-14 11:40 | XMS_ITS ---
Author Organization [facility] Address [address] [place] [address] Care Team Providers Care Research And Development Chemist Name Role Phone Norma Friedman APRN Primary Care Provider [phone] Motherhood Connection Status:Engaged (Active) Start date:05/23/2024 Enrollment date:05/23/2024 Case Team Name Relationship Phone Bindu Castellon RN Nurse Navigator Christy Zabala RN(Responsible Staff) Nurse Navig ator Continued Care and Services Coordination
--- OUTSIDE RECORDS SUMMARY | 2024-09-14 11:40 | XMS_ITS | Encounter Summary ---
[facility] Organization [facility] Address [address] [place] [address] Care Team Providers Care Media Supervisor Name Role Phone Elder Norma FERNÁNDEZ Primary Care Provider + [phone] Encounter Details Date Type Department Care Team (Latest Contact Info) Description 08/19/2024 Travel Social History Tobacco Use Types Packs/Day Years Used Date Smoking Tobacco: Never Smokeless Tobacco: Never Alcohol Use Standard Drinks/Week Comments Never 0 (1 standard drink = 0.6 oz pur e alcohol) [facility] Utilities Answer Date Recorded In the past 12 months has [employer], gas, oil, or water company threatened [...] all 05/28/2024 [facility] [place] of Occupat ional Health - Occupational Stress [...] 2:34 PM EDT Nneka Cross RN * Gregory Suicide Severity Rating Scale (Screener/Recent Self-Report) Question Answer Date of Assessment Author 6. Suicidal Behavior (Lifetime) No 2:34 PM EDT Nneka Cross RN documented as of this encounter Plan of Treatment Upcoming Encounters Date Type Department Care Team (Late st Contact Info) Description 01/20/2025 3:30 PM EST Office Visit [facility] GASTR[facility]ENTEROLOGY [address] [address] Robbin Escalante MD [address] [address] documented as of this encounter Visit Diagnoses Not on filedocumented in this encounter Additional Health Concerns Assessment Noted Time PHQ-2 Depression Total Score: 2 05/28/19 25 4:39 PM EDT documented as of this encounter Care Teams Media Supervisor Relationship Specialty Start Date End Date Norma Friedman APRN [address] [place] [address] [place] [address] PCP - General Family Medicine 05/14/24 documented as of this encounter
--- OUTSIDE RECORDS SUMMARY | 2024-09-14 11:40 | XMS_ITS | Encounter Summary ---
Author Organization [employer] ([place], [place], [place], [place]) Address [address] [place] [address] Care Team Providers Care Senior Telecommunications Consultant Name Role Phone Unavailable Primary Care Provider Unavailabl e Encounter Details Date Type Department Care Team (Late st Contact Info) Description 07/17/2019 Transcribed Document [facility] Family Medicine [address] [place] [address] ProviderEleno MD [address] [place] [place], [place] [address] Social History Tobacco Use Types Packs/Day Years [...] On: 07/17/2019 19:17 EDT by KARLENE MCKINLEY crystal calibrator Process Patient Disposition : AMA/Elope/LWBS KARLENE MCKINLEY [...]
--- OUTSIDE RECORDS SUMMARY | 2024-09-14 11:41 | XMS_ITS | Encounter Summary ---
[facility] Organization [facility] Address [address] [place] [phone] Care Team Providers Care Acetone Recovery Worker Name Role Phone Ivyashlyn Valentinoseven JOLENE Primary Care Provider + [phone] Encounter Details Date Type Department Care Team (Late st Contact Info) Description 06/26/2024 Results Follow-Up [facility] [address] [address] Koby Roberts MD [address] [place] [address] Social History Tobacco Use Types Packs/Day Years Used Date Smoking Tobacco: Never Smokeless Tobacco: Never Alcohol Use Standard Drinks/Week Comments Never 0 (1 standard drink = 0.6 oz pur e alcohol) [facility] Utilities Answer Date Recorded In the past 12 months has [employer], gas, oil, or water [employer] threatened to shut off services in your [...] Not hard at all 05/28/2024 [facility] [place] of Occupat ional Health - Occupational Stress [...] GED or equivalent No 05/28/2024 Preferred Language Bulgarian 05/28/2024 PHQ-2 Answer Date Recorded Patient Health [...] [facility] [address] [facility] [address] Robbin Escalante MD [address] [address] documented as of this encounter Visit Diagnoses Not on filedocumented in this encounter Additional Health Concerns Assessment Noted Time PHQ-2 Depression Total Score: 2 05/28/19 25 4:39 PM EDT documented as of this encounter Care Teams Acetone Recovery Worker Relationship Specialty Start Date End Date Norma Friedman APRN [address] [place] [address] [place] [address] PCP - General Family Medicine 05/14/24 documented as of this encounter
--- OUTSIDE RECORDS SUMMARY | 2024-09-14 11:41 | XMS_ITS | Encounter Summary ---
[facility] Address [address] [place] [address] Care Team Providers Care Engagement Director Name Role Phone Elder Norma FERNÁNDEZ Primary Care Provider + [phone] Encounter Details Date Type Department Care Team (Latest Contact Info) Description 07/22/2024 Travel Social History Tobacco Use Types Packs/Day Years Used Date Smoking Tobacco: Never Smokeless Tobacco: Never Alcohol Use Standard Drinks/Week Comments Never 0 (1 standard drink = 0.6 oz pur e alcohol) [facility] Utilities Answer Date Recorded In the past 12 months has [employer], gas, oil, or water company threatened [...] hard at all 05/28/2024 [facility] [place] of Occupat ional Health - Occupational Stress [...] GED or equivalent No 05/28/2024 Preferred Language Kazakh 05/28/2024 PHQ-2 Answer Date Recorded Patient Health [...] Visit [facility] GASTR[facility]ENTEROLOGY [address] [facility] [address] [place] [phone] Robbin Escalante MD [address] [facility] [address] [place] [address] documented as of this encounter Visit Diagnoses Not on filedocumented in this encounter Additional Health Concerns Assessment Noted Time PHQ-2 Depression Total Score: 2 05/28/19 25 4:39 PM EDT documented as of this encounter Care Teams Engagement Director Relationship Specialty Start Date End Date Norma Friedman APRN [address] [place] [address] [place] [address] PCP - General Family Medicine 05/14/24 documented as of this encounter
--- OUTSIDE RECORDS SUMMARY | 2024-09-14 11:41 | XMS_ITS | Encounter Summary ---
Author Organization [facility] Address [address] [place] [phone] Care Team Providers Care Mainframe Programmer Name Role Phone Ivyashlyn Norma FERNÁNDEZ Primary Care Provider + [phone] Encounter Details Date Type Department Care Team (Late st Contact Info) Description 09/02/2024 Telephone [facility] OBGYN [address] [address] Staci Jain MD [address] [place] [phone] Social History Tobacco Use Types Packs/Day Years Used Date Smoking Tobacco: Never Smokeless Tobacco: Never Alcohol Use Standard Drinks/Week Comments Never 0 (1 standard drink = 0.6 oz pur e alcohol) [facility] Utilities Answer Date Recorded In the past 12 months has [email or web address], [employer], oil, or water [employer] threatened to shut off services in your [...] and heating? Not hard at all 05/28/2024 [facility] of Occupat ional Health - [...] PM EDT She just got d/c'd from [facility] 2 hours ago and they gave her a total 10 MLE of K+ and 3 units of Mag and 2 liters of LR. She has decided to transfer care to [facility] as it iscloser to her like 15 min away. She wants you (Dr. Jain) to know this has nothing to you but rather the nurses and demonstrator sewing techniques doctor did not relay the labs to you in a faster fashion. She said you can call her if you want and she is not angry. Dr. Jain was notified. * Telephone Encounter - Frederick Gruber RN - 09/02/2024 3:10 PM EDT Reachpod - Inovaktif Bilisimt message sent to the pt regarding outpt infusion apt tomorrow at [facility]. documented in this encounter Plan of Treatment Upcoming Encounters Date Type Department Care Team (Late st Contact Info) Description 01/20/2025 3:30 PM EST Office Visit [facility] GASTROENTEROLOGY [address] [place] [address] [place] [address] Robbin Escalante MD [address] [facility] [address] [place] [address] documented as of this encounter Visit Diagnoses Not on filedocumented in this encounter Additional Health Concerns Assessment Noted Time PHQ-2 Depression Total Score: 2 05/28/19 25 4:39 PM EDT documented as of this encounter Care Teams Mainframe Programmer Relationship Specialty Start Date End Date Norma Friedman APRN [address] [place] [address] [place] [address] PCP - General Family Medicine 05/14/24 documented as of this encounter
--- OUTSIDE RECORDS SUMMARY | 2024-09-14 11:41 | XMS_ITS | Encounter Summary ---
Author Organization [facility] Address [address] [place] [address] Care Team Providers Care Carriage Setter Name Role Phone Unavailable Primary Care Provider Unavailabl e Encounter Details Date Type Department Care Team (Late st Contact Info) Description 07/22/2024 Community Orders [facility] [address] [place] [address] Sandy Cardenas MD [address] [facility] [address] [place] [phone] Social History Tobacco Use Types Packs/Day Years [...]
--- OUTSIDE RECORDS SUMMARY | 2024-09-14 11:41 | XMS_ITS | Encounter Summary ---
[facility] Organization [facility] Address [address] [place] [phone] Care Team Providers Care Packaging Sales Representative Name Role Phone IvyKade goldbergjoseseven JOLENE Primary Care Provider + [phone] Encounter Details Date Type Department Care Team (Late st Contact Info) Description 09/03/2024 Results Follow-Up [facility] OBGYN [address] [place] [address] Staci Jain MD [address] [facility] [address] [place] [address] Social History Tobacco Use Types Packs/Day Years Used Date Smoking Tobacco: Never Smokeless Tobacco: Never Alcohol Use Standard Drinks/Week Comments Never 0 (1 standard drink = 0.6 oz pur e alcohol) [facility] Utilities Answer Date Recorded In the past 12 months has [employer], gas, oil, or water [employer]) threatened to shut off services in your [...] heating? Not hard at all 05/28/2024 [facility] of Occupat ional Health [...] GED or equivalent No 05/28/2024 Preferred Language Surinamese 05/28/2024 PHQ-2 Answer Date Recorded Patient Health [...] EST Office Visit [facility] GASTROENTEROLOGY [address] [address] Robbin Escalante MD [address] [address] documented as of this encounter Visit Diagnoses Not on filedocumented in this encounter Additional Health Concerns Assessment Noted Time PHQ-2 Depression Total Score: 2 05/28/19 4:39 PM EDT documented as of this encounter Care Teams Packaging Sales Representative Relationship Specialty Start Date End Date Norma Friedman APRN [address] [place] [address] [place] [address] PCP - General Family Medicine 05/14/24 documented as of this encounter
[2024-09-14 12:41] LABS: Alanine Aminotransferase 11 U/L (12-78); Albumin Level 3.2 g/dl (3.5-5.0); Albumin/Globulin Ratio 1.2 (1.1-1.8); Alkaline Phosphatase 80 U/L (38-126); Anion Gap 9.0 mEq/L (5-15); Aspartate Amino Transferase 24 U/L (14-36); Bilirubin,Total 0.5 mg/dl (0.2-1.3); Blood Urea Nitrogen 3 mg/dl (7-17); Calcium 8.7 mg/dl (8.4-10.2); Carbon Dioxide 25 mmol/L (22.0-30.0); Chloride 105 mmol/L (98-107); Creatinine,Serum 0.40 mg/dl (0.52-1.04); Estimated Glomerular Filt Rate 184 ml/min (>60); GFR (African American) 222 ML/MIN (>60); Globulin 2.7 g/dL (1.3-3.2); Glucose 89 mg/dl (74-100); Potassium 4.0 mmoL/L (3.5-5.1); Sodium 135 mmol/L (136-145); Total Protein,Serum 5.9 g/dl (6.3-8.2)
== END 2024-09-14 23:59 | disposition home or self-care (01) ==
LOC: LAB 11:37
PROVIDERS: Nurse Practitioner Obstetrics & Gynecology; PCP Nurse Practitioner Family; Visit Provider Obstetrics & Gynecology
DX: E87.6 Hypokalemia (principal)
CPT/HCPCS: 36415; 80053

== ENCOUNTER 2024-09-15 17:52 | Observation (INO) | payer OTHER, SELFPAY ==
--- OUTSIDE RECORDS SUMMARY | 2024-07-22 07:44 | XMS_ITS | Encounter Summary ---
Author Organization [facility] Address [address] [place] [id number] Care Team Providers Care Pocket Setter Lockstitch Name Role Phone Norma Friedman APRN Primary Care Provider + [phone] Reason for Referral * Diagnostic Imaging (Routine) - Closed Specialty Diagnoses / Procedures Referred By Tarik pedersen Referred To Contact Radiology Diagnoses care, antepartum, unspecified High risk due to history of labor, antepartum History of prior with small for gestational age Procedures [facility] Kelly Watkins APRN [address] [facility] [address] [place] [address] Phone: tel: fax: [facility] PER DIAG CTR [address] [place] [address] Phone: tel: Referral ID Status Reason Start Date Expiration Date Visits Re quested Visits Authorized [id number] Closed 07/08/2024 10/07/2025 1 1 Reason for Visit * Diagnostic Imaging (Routine) - Closed Specialty Diagnoses / Procedures Referred By Tarik t Referred To Contact Radiology Diagnoses care, antepartum, unspecified High risk due to history of labor, antepartum History of prior with small for gestational age Procedures [facility] Kelly Watkins APRN [address] [facility] [address] [place] [address] Phone: tel: fax: [facility] US PER DIAG [facility] [address] [place] [address] Phone: tel: Referral ID Status Reason Start Date Expiration Date Visits Re quested Visits Authorized [id number] Closed 07/08/2024 10/07/2025 1 1 Encounter Details Date Type Department Care Team (Late st Contact Info) Description 07/22/2024 7:44 AM EDT - 07/22/2024 11:59 PM EDT Hospital Encounter [facility] PER DIAG [facility] [address] [place] [phone] Kelly Watkins, FRUIT DRYER [address] [place] [address] care, antepartum, unspecified ; High risk due to history of labor, antepartum; History of prior with small for gestational age Discharge Disposition: Home or Self Care Social History Tobacco Use Types Packs/Day Years Used Date Smoking Tobacco: Never Smokeless Tobacco: Never Alcohol Use Standard Drinks/Week Comments Never 0 (1 standard drink = 0.6 oz pur e alcohol) [facility] Utilities Answer Date Recorded In the past 12 months has [employer] electric, gas, oil, or water [employer] threatened to shut off services in your [...] and heating? Not hard at all 05/28/2024 [facility] of Occupat ional Health - Occupational Stress [...] GED or equivalent No 05/28/2024 Preferred Language Uruguayan 05/28/2024 PHQ-2 Answer Date Recorded Patient Health [...] Description 01/20/2025 3:30 PM EST Office Visit [facility] [address] [address] Robbin Escalante MD [address] [address] documented as of this encounter Procedures Procedure Name Priority Date/Time Associated Diagnosis Comments [facility] Routine 07/22/2024 9:10 AM EDT care, antepartum, unspecified High risk due to history of labor, antepartum History of prior with small for gestational age documented in this encounter Results * [facility] (07/22/2024 9:10 AM EDT) Anatomical Region Laterality Modality Ultrasound 07/22/2024 8:20 AM EDT Narrative 07/22/2024 9:18 AM EDT PAT NAME: CAROLE GIRARD MED REC#: [id number] DA: 1990 PAT GEND: F PAT TYPE: O EXAM TRAVIS: [id number] REF PHYS KELLY WATKINS Comparison Studies There [...] EFW (oz) 13 oz EFW by: Hadlock (QHO-XF-GL-FL) Extended Tibia 28.0 mm 20w 1d 17% Jamal Fibula 27.3 mm 19w 5d 17% Jamal Radius 26.9 mm 20w 0d 36% Jamal Ulna 30.0 mm 21w 1d 33% Jamal Cav. septi pel. tr 3.7 mm Cdl B Driver 5.4 mm CM 4.7 mm 32% Nicolaides [...] normal IVC: normal 3-vessel view: Appears normal 5-djbqdv-swemecs view: Appears normal Rt lung: Appears normal [...] Follow-up as clinically indicated. Coding ======= Description: 30916-09 Detailed [employer] Supervisor: Cheyenne Spence RDMS Physician: Sebastian Larsen MD, FACOG Electronically signed by: Sebastian Larsen MD, FACOG at: 09:18 Procedure Note Sebastian Larsen MD - 07/22/2024 PAT NAME: CAROLE GIRARD MED REC#: [id number] DA: [id number] PAT GEND: F PAT TYPE: O EXAM TRAVIS: [id number] REF PHYS KELLY WATKINS Comparison Studies There are no relevant prior studies to which this study is beingcompared Patient Status Outpatient Indication ======== Incomplete anatomy, previous SGA, hx c/s x1 Maternal Assessment Cjfedl071 cm Height (ft)5 ft Height (in)4 in Bqmols10 kg Weight (lb)163 lb BMI28.17 kg/m Method ======= Transabdominal ultrasound examination ========= Love . Number of fetuses: 1 Dating ====== Method of dating:based on stated DUSTY GA by prior zhpnktidoh73 w + 1 d DUSTY by prior [...] Hadlock Femur33.9 mm 20w 5d 24% Hadlock Gupplom01.7 mm 21w 0d 40% Jamal HC / AC1.11 CJJ517 g 20w 5d 29% Hadlock EFW (lb)0 lb EFW (oz)13 oz EFW by:Hadlock (HQA-BO-AN-FL) Extended Tibia28.0 mm 20w 1d 17% Jamal Alzjro33.3 mm 19w 5d 17% Jamal Eqnypv86.9 mm 20w 0d 36% Jamal Ulna30.0 mm 21w 1d 33% Jamal Cav. septi pel. tr3.7 mm Vp5.4 mm CM4.7 mm 32% Nicolaides Head / Face / Neck Cephalic index0.75 11% Nicolaides Extremities / Bony Struc FL / BPD0.71 FL / HC0.19 FL / AC0.21 Other Structures AZB693 bpm General Evaluation Cardiac activity present. FHR [...] view:Appears normal SVC:normal IVC:normal 3-vessel view:Appears normal 1-ydfmas-xrwgxai view:Appears normal Rt lung:Appears normal Lt lung:normal [...] Structures Uterus / Cervix Cervix:Visualized Approach:Transabdominal Cervical yibcid60.6 mm Ovaries / Tubes / Adnexa Rt ovary:Visualized Lt ovary:Visualized Impression Today's exam reveals a SIUP with biometry consistent with dates. Fetalanatomic survey appears normal. Fluid is normal. The placenta is anterior,left. The TA cervical length appears adequate Recommendation Follow-up as clinically indicated. Coding ======= Description:36850-46 Detailed [employer] Supervisor: Cheyenne Spence RDMS Physician: Sebastian Larsen MD, FACOG Electronically signed by: Sebastian Larsen MD, FACOG at: 09:18 Result [facility] Kelly Watkins APRN [place] US ORDERABLES Final Resu lt documented in this encounter Visit Diagnoses Diagnosis care, antepartum, unspecified High risk due to history of labor, antepartum History of prior with small for gestational age documented in this encounter Additional Health Concerns Assessment Noted Time PHQ-2 Depression Total Score: 2 05/28/19 25 4:39 PM EDT documented as of this encounter Care Teams Pocket Setter Lockstitch Relationship Specialty Start Date End Date Norma Friedman APRN [address] [place] [address] PCP - General Family Medicine 05/14/24 documented as of this encounter
--- OUTSIDE RECORDS SUMMARY | 2024-07-22 08:00 | XMS_ITS | Encounter Summary ---
Author Organization [facility] Address [address] [place] [phone] Care Team Providers Care Shotweld Operator Name Role Phone Ivyashlyn Valentinoseven JOLENE Primary Care Provider + [phone] Reason for Visit * Reason Comments incomplete anatomy; hx SGA in prev. preg onelia; prev. c/s Encounter Details Date Type Department Care Team (Late st Contact Info) Description 07/22/2024 8:00 AM EDT Office Visit [facility] MATERNAL MEDICINE [address] [address] [place] [address] Sebastian Larsen MD 1700 [facility] [address] [place] [phone] History of prior with small for gestational age (Primary Dx) Social History Tobacco Use Types Packs/Day Years Used Date Smoking Tobacco: Never Smokeless Tobacco: Never Alcohol Use Standard Drinks/Week Comments Never 0 (1 standard drink = 0.6 oz pur e alcohol) [facility] Utilities Answer Date Recorded In the past 12 months has [employer] electric, gas, oil, or water company threatened [...] and heating? Not hard at all 05/28/2024 [facility] [place] of Occupat ional Health - Occupational Stress [...] none 05/28/2024 Family and Community Support Answer Rtavis e Recorded If for any reason you [...] GED or equivalent No 05/28/2024 Preferred Language Estonian 05/28/2024 PHQ-2 Answer Date Recorded Patient Health [...] Description 01/20/2025 3:30 PM EST Office Visit [facility] GASTROENTEROLOGY 1720 [facility] [address] [place] [address] Robbin Escalante MD [address]20 [facility] [address] [place] [address] documented as of this encounter Visit Diagnoses Diagnosis History of prior with small for gestational age - Primary documented in this encounter Additional Health Concerns Assessment Noted Time PHQ-2 Depression Total Score: 2 05/28/19 25 4:39 PM EDT documented as of this encounter Care Teams Shotweld Operator Relationship Specialty Start Date End Date Norma Friedman APRN [address] [place] [address] [place] [address] PCP - General Family Medicine 05/14/24 documented as of this encounter
--- OUTSIDE RECORDS SUMMARY | 2024-07-22 09:10 | XMS_ITS | Encounter Summary ---
[facility] Address [address] [place] [id number] Care Team Providers Care Commercial Interior Designer Name Role Phone Norma Friedman APRN Primary Care Provider + [phone] Reason for Referral * Consultation (Routine) - Closed Specialty Diagnoses / Procedures Referred By Contac t Referred To Contact Nephrology Diagnoses History of proteinuria syndrome Procedures [place] OFFICE/OUTPATIENT NEW MODERATE MDM 45 MINUTES Staci Jain MD [address] [place] [address] Phone: tel: fax: [place] [address] Phone: tel: Referral ID Status Reason Start Date Expiration Date V isits Requested Visits Authorized [id number] Closed Specialty Services Required 07/22/2024 10/21/2025 1 1 Reason for Visit * Reason Comments Routine Visit * Diagnostic Imaging (Routine) - Closed Specialty Diagnoses / Procedures Referred By Contact Referred To Contact Obstetrics and Gynecology Diagnoses care, subsequent , second trimester Procedures US Ob 14 + Weeks Single or First Gestation Koby Roberts MD [address] [facility] [address] [place] [address] Phone: tel: fax: [facility] OBGYN [address] [place] [address] Phone: tel: fax: Referral ID Status Reason Start Date Expiration Date Visits Re quested Visits Authorized [id number] Closed 06/11/2024 09/10/2025 1 1 Encounter Details Date Type Department Care Team (Late st Contact Info) Description 07/22/2024 9:10 AM EDT Routine [facility] OBGYN [address] [phone] Staci Jain MD [address] [address] [place]: 21w1d Social History Tobacco Use Types Packs/Day Years Used Date Smoking Tobacco: Never Smokeless Tobacco: Never Alcohol Use Standard Drinks/Week Comments Never 0 (1 standard drink = 0.6 oz pur e alcohol) [facility] Utilities Answer Date Recorded In the past 12 months has [employer], gas, oil, or water [employer] threatened to shut off services in your [...] and heating? Not hard at all 05/28/2024 [facility] of Occupat ional Health - Occupational Stress [...] GED or equivalent No 05/28/2024 Preferred Language Polish 05/28/2024 PHQ-2 Answer Date Recorded Patient Health Questionnaire-9 Score 2 05/28/2024 Estimated Date of Delivery Comme nts Yes 12/01/2024 Based on last hi nstrual period of 02/25/2024 Sex and Gender [...] IUGR. Unknown reasons. Has not seen a acid cleaner This is my first time seeing patient. Transferred care. Will want to be seen in [facility]. Her care is complicated by (and [...] about 4 weeks (around 08/19/2024) for in [place]. Staci Jain MD 07/22/2024 documented in this encounter Plan of Treatment Upcoming Encounters Date Type Department Care Team (Late st Contact Info) Description 01/20/2025 3:30 PM EST Office Visit [facility] GASTROENTEROLOGY [address] [address] Robbin Escalante MD [address] [address] Scheduled Referrals Name Type Priority Associated Diagnoses [...] AM EDT) Glucose, UA Negative Negative mg/dL [facility] Protein, POC 1+(A) Negative mg/dL [facility] Urine 07/22/2024 10:0 2 AM EDT us Staci Jain MD POINT OF CARE TEST OR DERABLES Final Result [facility]
[address] [place] [address], documented in this encounter Visit Diagnoses Diagnosis Multigravida in second trimester- Primary care, subsequent , second trimester History of proteinuria syndrome History of Other postprocedural status documented in this encounter Additional Health Concerns Assessment Noted Time PHQ-2 Depression Total Score: 2 05/28/19 25 4:39 PM EDT documented as of this encounter Care Teams Commercial Interior Designer Relationship Specialty Start Date End Date Norma Friedman APRN [address] [place] [address] [place] [address] RAFAELA APPIAH [id number] PCP - General Family Medicine 05/14/24 documented as of this encounter
--- OUTSIDE RECORDS SUMMARY | 2024-08-19 10:15 | XMS_ITS | Encounter Summary ---
Author Organization [facility] Address [address] [place] [id number] Care Team Providers Care Audio Visual Secretary Name Role Phone Norma Friedman APRN Primary Care Provider + [phone] Reason for Visit * Reason Comments Routine Visit Encounter Details Date Type Department Care Team (Late st Contact Info) Description 08/19/2024 10:[address] [facility] OBGYN [address] [place] [address] Jacey Mathews, TELE RN [address] [place] [address] GA: 25w1d Social History Tobacco Use Types Packs/Day Years Used Date Smoking Tobacco: Never Smokeless Tobacco: Never Alcohol Use Standard Drinks/Week Comments Never 0 (1 standard drink = 0.6 oz pur e alcohol) [facility] Utilities Answer Date Recorded In the past 12 months has [employer], gas, oil, or water [employer] threatened to shut off services in your [...] heating? Not hard at all 05/28/2024 [facility] [place] [facility] - Occupational Stress Questionnaire Answer [...] GED or equivalent No 05/28/2024 Preferred Language Tajik 05/28/2024 PHQ-2 Answer Date Recorded Patient Health [...] this encounter Progress Notes * Jacey Mathews, TELE RN - 08/19/2024 10:15 AM EDT Images from [...] 3:30 PM EST Office Visit [facility] GASTROENTEROLOGY [address] [facility] [address] [place] [address] Robbin Escalante MD [address] [facility] [address] [place] [address] documented as of this encounter Visit Diagnoses Diagnosis Vaginal bleeding in - Primary 25 weeks gestation of documented in this encounter Additional Health Concerns Assessment Noted Time PHQ-2 Depression Total Score: 2 05/28/19 25 4:39 PM EDT documented as of this encounter Care Teams Audio Visual Secretary Relationship Specialty Start Date End Date Norma Friedman APRN [address] [place] [address] [place] [address] PCP - General Family Medicine 05/14/24 documented as of this encounter
--- OUTSIDE RECORDS SUMMARY | 2024-08-19 13:59 | XMS_ITS | Encounter Summary ---
[facility] Address [address] [place] [id number] Care Team Providers Care Radiation Control Technician Name Role Phone Ivyashlyn Norma FERNÁNDEZ Primary Care Provider + [phone] Reason for Visit * Reason Comments Vaginal Bleeding * Auth/Cert (Routine) Specialty Diagnoses / Procedures Referred By Contleyla t Referred To Contact Referral ID Status Reason Start Date Expiration Date Visits Re quested Visits Authorized [id number] 1 1 Encounter Details Date Type Department Care Team (Late st Contact Info) Description 08/19/2024 1:59 PM EDT - 08/20/2024 4:28 PM EDT Hospital Encounter [facility] [address] [place] [id number] Rob Wharton MD [address] [facility] [address] [place] [address] Blu Alvarado MD [address] [facility] [address] [place] [address] Dysphagia, unspecified type (Primary Dx) Discharge Disposition: Home or Self Care Social History Tobacco Use Types Packs/Day Years Used Date Smoking Tobacco: Never Smokeless Tobacco: Never Alcohol Use Standard Drinks/Week Comments Never 0 (1 standard drink = 0.6 oz pur e alcohol) [facility] Utilities Answer Date Recorded In the past 12 months has [employer], gas, oil, or water [employer] threatened to shut off services in your [...] and heating? Not hard at all 05/28/2024 [facility] of Occupat ional Health - Occupational Stress [...] GED or equivalent No 05/28/2024 Preferred Language Austrian 05/28/2024 PHQ-2 Answer Date Recorded Patient Health [...] 1:23 PM EDT Polly Lacey RN * [place] Suicide Severity Rating Scale (Screener/Recent Self-Report) Question [...] Labs beginning of week and f/u with in Seng Test Results Pending at Discharge Pending Labs Order Current Status Tissue Pathology Exam In process Rob Wharton MD 08/20/24 15:36 EDT Time: Discharge <30 min documented in this encounter Discharge Instructions * Attachments The following attachments cannot be sent through Care Everywhere. * Second Trimester of (Austrian) * Upper Endoscopy Adult Care After (Austrian) documented in this encounter Medications at Time [...] 08/19/2024 RH Positive 08/19/2024 ABSCRN Negative 08/19/2024 [id number] non-reactive 04/12/2024 HEPCVIRUSABY negative 04/12/2024 URINECX Final [...] IUPC: Resting Tone: Resting Tone by IUPC: [place] Units: Cervix: Exam by: Method: sterile vaginal [...] from the original note were not included. [facility] Obstetric History and Physical Referring Provider: [...] her third trimesters prior pregnancies(etiology unknown). 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 She states has never had [...] IUPC: Resting Tone: Resting Tone by IUPC: [place] Units: Laboratory Results: Lab Results (last 24 [...] expresses concern regarding recent CT scan at [facility] revealing a hiatal hernia. CT scan done prior to most recent due to ovarian cyst and incidentally revealed hiatal hernia. She reports chronic gastrointestinal symptoms. Review of medical record revealed prior GI referral due to blood per rectum. She reports colonoscopy in 2020 at outside facility that revealed diverticulosis and benign colon polyp. She is currently established with provider at [facility] for gastroenterology care she reports repeat [...] , await recommendations following EGD - consider CHAPLAIN evaluation if no etiology for difficulty swallowing [...] from the original note were not included. [facility] Obstetric History and Physical Referring Provider: [...] her third trimesters prior pregnancies(etiology unknown). 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 She states has never had [...] IUPC: Resting Tone: Resting Tone by IUPC: [place] Units: Laboratory Results: Lab Results (last 24 [...] 01/20/2025 3:30 PM EST Office Visit [facility] [address] [facility] [phone] Robbin Escalante MD [address] [facility] [address] documented as of this encounter Procedures Procedure Name Priority Date/Time Associated Diagnosis Comments TISSUE PATHOLOGY EXAM Routine 08/20/2024 1:55 PM EDT Dysphagia, unspecified type WY ESOPHAGOGASTRODUODENOSCOP Y TRANSORAL DIAGNOSTIC 08/20/2024 1:44 PM EDT Dysphagia, unspecified type UPPER GI ENDOSCOPY 08/20/2024 1:09 PM EDT BASIC METABOLIC PANEL STAT 08/20/2024 5:25 AM EDT POTASSIUM STAT 08/19/2024 8:53 PM EDT ABORH 2ND SPECIMEN VERIFICATION STAT 08/19/2024 4:34 PM EDT NONSTRESS TEST Routine 08/19/2024 4:17 PM EDT [facility] DI[facility]IC [facility] Routine 08/19/2024 3:25 [...] EDT) Case Report Surgical Pathology Report Case: [id number] Authorizing Provider: Blu Alvarado MD Collected: 08/20/2024 01:55 PM Ordering Location: [facility] Received: 08/20/2024 02:14 PM ENDO SUITES Pathologist: Khalida Rhoades DO Specimen: Gastric, Antrum, antrum bx for path 08/22/2024 9:18 AM EDT [facility] Clinical Information Dysphagia, unspecified type 08/22/2024 9:18 AM EDT [facility] Final Diagnosis Stomach, antrum, biopsy: 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 pylori is negative (no organisms are identified) Negative for intestinal metaplasia, dysplasia, or malignancy 08/22/2024 9:18 AM EDT [facility] at 0918 EDT Gross Description 1. Gastric, Antrum. Received in formalin labeled antrum biopsy is a 0.4 x 0.2 x 0.2 cm pink-see soft tissue fragment submitted entirely in a single cassette. HDM 08/22/2024 9:18 AM EDT [facility] Microscopic Description The slides are reviewed and demonstrate histopathologic features supporting the above rendered diagnosis. 08/22/2024 9:18 AM EDT [facility] Tissue Pyloric antrum structure / Unknown 08/20/2024 1:55 PM EDT 08/20/2024 2:14 PM EDT us Blu Alvarado MD PATHOLOGY/CYTOLOGY ORDERABLES Final Result [facility]
[address] [place] [address], * Upper GI Endoscopy (08/20/2024 1:09 PM EDT) us Blu Alvarado MD INTERFACE NEEDS Final Result * (ABNORMAL) Basic Metabolic Panel (08/20/2024 5:25 AM EDT) Glucose 84 65 - 99 mg/dL 08/20/2024 6:13 AM EDT [facility] BUN 2.3(L) 6.0 - 20.0 mg/dL 08/20/2024 6:13 AM EDT [facility] Creatinine 0.51(L) 0.57 - 1.00 mg/dL 08/20/2024 6:13 AM EDT [facility] Sodium 139 136 - 145 mmol/L 08/20/2024 6:13 AM EDT [facility] Potassium 3.5 3.5 - 5.2 mmol/L 08/20/2024 6:13 AM EDT [facility] Chloride 109(H) 98 - 107 mmol/L 08/20/2024 6:13 AM EDT [facility] CO2 23.5 22.0 - 29.0 mmol/L 08/20/2024 6:13 AM EDT [facility] Calcium 7.8(L) 8.6 - 10.5 mg/dL 08/20/2024 6:13 AM EDT [facility] BUN/Creatinine Ratio 4.5(L) 7.0 - 25.0 08/20/2024 6:13 AM EDT [facility] Anion Gap 6.5 5.0 - 15.0 mmol/L 08/20/2024 6:13 AM T [facility] eGFR 126.6 >60.0 mL/min/1.7 3 08/20/2024 6:13 AM T [facility] Blood Venipuncture / Unknown 08/20/2024 5:25 AM EDT 08/20/2024 5:46 AM EDT [facility] - 08/20/2024 6:13 AM EDT [...] ORDERABLES Final Resu lt Performing Organization Address City/[facility]/ZIP Co de Phone Number [facility]
[address] [place] [address], * (ABNORMAL) Potassium (08/19/2024 8:53 PM EDT) Potassium 2.7(L) 3.5 - 5.2 mmol/L 08/19/2024 9:20 PM EDT [facility] Blood Venipuncture / Unknown 08/19/2024 8:53 PM EDT 08/19/2024 9:04 PM EDT Kt Fan DO LAB BLOOD ORDERABLES Final Result Performing Organization Address [facility] Co de Phone Number [facility]
[address] [place] [address], * ABO RH Specimen Verification (08/19/2024 4:34 PM EDT) ABO Type O 08/19/2024 7:39 PM EDT [facility] RH type Positive 08/19/2024 7:39 PM EDT [facility] Blood Venipuncture / Unknown 08/19/2024 4:34 PM EDT 08/19/2024 4:53 PM EDT Rob Wharton MD BLOOD BANK TEST ORDER FRANCO Final Result Performing Organization Address City/[facility]/ZIP Co de Phone Number [facility]
[address] [place] [address], * [facility] (08/19/2024 3:25 PM EDT) Anatomical Region Laterality Modality Ultrasound 08/19/2024 3:09 PM EDT Narrative 08/19/2024 4:54 PM EDT PAT NAME: CAROLE GIRARD MED REC#: [id number] DA: 1990 PAT GEND: F PAT TYPE: E EXAM TRAVIS: [id number] REF PHYS ROB WHARTON Comparison Studies The [...] EFW (oz) 9 oz EFW by: Hadlock ([id number]) Extended Cav. septi pel. tr 4.7 mm Cooking Chef 3.8 mm CM 7.5 mm 84% Nicolaides [...] Heart / Thorax 3-vessel view: Appears normal 5-crvxli-oxgcwmw view: Appears normal Stomach: Appears normal Kidneys: [...] in 4wks for growth. Coding ======= Description: 80038-29 Follow Up Permanent Waver: RT Annetta Hartmann , [facility] Physician: Jo Chappell MD Electronically signed by: Jo Chappell MD at: 16:54 Procedure Note Jo Chappell MD - 08/19/2024 PAT NAME: CAROLE GIRARD MED REC#: [id number] DA: 1990 PAT GEND: F PAT TYPE: E EXAM TRAVIS: [id number] REF PHYS ROB WHARTON Comparison Studies The findings of this study are compared to the prior ultrasound studydated 07/22/24 Patient Status Inpatient Indication ======== History of c/s x1. History of . Vaginal bleeding. Maternal Assessment Cvxlyi220 cm Height (ft)5 ft Height (in)4 in Gdywux69 kg Weight (lb)158 lb BMI27.31 kg/m Method ======= Transabdominal ultrasound examination. View: Limited by patient bodyhabitus ========= Love . Number of fetuses: 1 Dating ====== Method of dating:based on stated DUSTY GA by prior [id number] w + 1 d DUSTY by prior assessment:12/01/2024 Ultrasound examination on:08/19/2024 GA by U/S based upon:AC, BPD, Femur, HC GA by U/S24 w + 2 d DUSTY by U/S:12/07/2024 Previous dating:based on stated DUSTY, selected on 07/22/2024 Agreed DUSTY of previous datin12/01/2024 Assigned:based on stated DUSTY, selected on 08/19/2024 Assigned GA25 w + 1 d Assigned DUSTY:12/01/2024 [id number] d Biometry Standard BPD57.6 mm 23w 4d 5% Hadlock OFD81.6 mm 26w 4d 88% Jamal HC225.7 mm 24w 4d 13% Hadlock Cerebellum tr28.9 mm 25w 2d 62% Hill AC194.9 mm 24w 1d 15% Hadlock Femur44.9 mm 24w 6d 27% Hadlock Tdeofzj34.3 mm 25w 3d 50% Jamal HC / AC1.16 RXH304 g 24w 2d 16% Hadlock EFW (lb)1 lb EFW (oz)9 oz EFW by:Hadlock (XOT-[id number]-FL) Extended Cav. septi pel. tr4.7 mm Vp3.8 mm CM7.5 mm 84% Nicolaides Head / Face / Neck Cephalic index0.71 <1% Nicolaides Extremities / Bony Struc FL / BPD0.78 FL / HC0.20 FL / AC0.23 Other Structures LQC921 bpm General Evaluation Cardiac activity present. FHR [...] normal Heart / Thorax 3-vessel view:Appears normal 8-eyxzev-kqdbxub view:Appears normal Stomach:Appears normal Kidneys:Appears normal Bladder:Appears [...] office in 4wks for growth. Coding ======= Description:03910-52 Follow Up Permanent Waver: RT Annetta Hartmann , RDMS Physician: Jo Chappell MD Electronically signed by: Jo Chappell MD at: 16:54 us Kt Fan DO G US ORDERABLES Final Res ult * Protein / Creatinine Ratio, Urine - Urine, Clean Catch (08/19/2024 3:02 PM EDT) Protein/Creati nine Ratio, Urine 126.1 0.0 - 200.0 mg/G Crea 08/20/2024 12:47 AM EDT [facility] Creatinine, Urine 148.3 mg/dL 08/20/2024 12:47 AM EDT [facility] Total Protein, Urine 18.7 mg/dL 08/20/2024 12:47 AM EDT [facility] Urine Urine specimen obtained by clean catch procedure / Unknown Collection / Unknown 08/19/2024 3:02 PM EDT 08/19/2024 4:26 PM EDT Kt Fan URINE ORDERABLES Final Resu lt [facility]
[address] [place] [address], [place] [phone] * (ABNORMAL) Magnesium (08/19/2024 3:02 PM EDT) Magnesium 1.5(L) 1.6 - 2.6 mg/dL 08/19/2024 5:12 PM EDT [facility] Blood Line / Unknown 08/19/2024 3: 02 PM EDT 08/19/2024 3:10 PM EDT Kt Fan DO LAB BLOOD ORDERABLES Final Result [facility]
[address] [place] [address], [place] [phone] * Urinalysis, Microscopic Only - Urine, Clean Catch (08/19/2024 3:02 PM EDT) RBC, UA 0-2 None Seen, 0-2 /HPF 08/19/2024 3:33 PM EDT [facility] WBC, UA 0-2 None Seen, 0-2 /HPF 08/19/2024 3:33 PM EDT [facility] Bacteria, UA None Seen None Seen /HPF 08/19/2024 3:33 PM EDT [facility] Squamous Epithelial Cells, UA 0-2 None Seen, 0-2 /HPF 08/19/2024 3:33 PM EDT [facility] Hyaline Casts, UA None Seen None Seen /LPF 08/19/2024 3:33 PM EDT [facility] Methodology Automated Microscopy 08/19/2024 3:33 PM EDT [facility] Urine Urine specimen obtained by clean catch procedure / Unknown Collection / Unknown 08/19/2024 3:02 PM EDT 08/19/2024 3:13 PM EDT us Kt Fan DO URINE ORDERABLES Final Resu lt [facility]
[address] [place] [address], * (ABNORMAL) CBC Auto Differential (08/19/2024 3:02 PM EDT) WBC 9.19 3.40 - 10.80 10*3/mm3 08/19/2024 3:23 PM EDT [facility] RBC 3.58(L) 3.77 - 5.28 10*6/mm3 08/19/2024 3:23 PM EDT [facility] Hemoglobin 10.5(L) 12.0 - 15.9 g/dL 08/19/2024 3:23 PM EDT [facility] Hematocrit 31.4(L) 34.0 - 46.6 % 08/19/2024 3:23 PM EDT [facility] MCV 87.7 79.0 - 97.0 fL 08/19/2024 3:23 PM EDT [facility] MCH 29.3 26.6 - 33.0 pg 08/19/2024 3:23 PM EDT [facility] MCHC 33.4 31.5 - 35.7 g/dL 08/19/2024 3:23 PM EDT [facility] RDW 13.4 12.3 - 15.4 % 08/19/2024 3:23 PM EDT [facility] RDW-SD 42.4 37.0 - 54.0 fl 08/19/2024 3:23 PM EDT [facility] MPV 12.0 6.0 - 12.0 fL 08/19/2024 3:23 PM EDT [facility] Platelets 241 140 - 450 10*3/mm3 08/19/2024 3:23 PM EDT [facility] Neutrophil % 66.8 42.7 - 76.0 % 08/19/2024 3:23 PM EDT [facility] Lymphocyte % 24.4 19.6 - 45.3 % [facility] Monocyte % 7.6 5.0 - 12.0 % [facility]24 [facility] Eosinophil % 0.7 0.3 - 6.2 % 08/19/2024 [facility] Basophil % 0.2 0.0 - 1.5 % 08/19/2024 3[facility] Immature Grans % 0.3 0.0 - 0.5 % 08/19/2024 3:[facility] Neutrophils, Absolute 6.14 1.70 - 7.00 10*3/mm3 08/19/2024 3:[facility] Lymphocytes, Absolute 2.24 0.70 - 3.10 10*3/mm3 08/19/2024 3:23 PM EDT [facility] Monocytes, Absolute 0.70 0.10 - 0.90 10*3/mm3 08/19/2024 3:23 PM EDT [facility] Eosinophils, Absolute 0.06 0.00 - 0.40 10*3/mm3 08/19/2024 3[facility] Basophils, Absolute 0.02 0.00 - 0.20 10*3/mm3 08/19/2024 3:23 PM EDT [facility] Immature Grans, Absolute 0.03 0.00 - 0.05 10*3/mm3 08/19/2024 3:23 PM EDT [facility] nRBC 0.0 0.0 - 0.2 /100 WBC 08/19/2024 3:23 PM EDT [facility] Blood Line / Unknown 08/19/2024 3: 02 PM EDT 08/19/2024 3:10 PM EDT Kt Fan DO LAB BLOOD ORDERABLES Final Result [facility]
[address] [place] [address], * (ABNORMAL) Urinalysis With Microscopic If Indicated (No Culture) - Urine, Clean Catch (08/19/2024 3:02 PM EDT) Color, UA Yellow Yellow, Straw 08/19/2024 3:33 PM EDT [facility] Appearance, UA Clear Clear 08/19/2024 3:33 PM EDT [facility] pH, UA >=9.0(H) 5.0 - 8.0 08/19/2024 3:33 PM EDT [facility] Specific [place], UA 1.018 1.005 - 1.030 08/19/2024 3:33 PM EDT [facility] Glucose, UA Negative Negative 08/19/2024 3:33 PM EDT [facility] Ketones, UA 15 mg/dL (1+)(A) Negative 08/19/2024 3:33 PM EDT [facility] Bilirubin, UA Negative Negative 08/19/2024 3:33 PM EDT [facility] Blood, UA Negative Negative 08/19/2024 3:33 PM EDT [facility] Protein, UA 30 mg/dL (1+)(A) Negative 08/19/2024 3:33 PM EDT [facility] Leuk Esterase, UA Negative Negative 08/19/2024 3:33 PM EDT [facility] Nitrite, UA Negative Negative 08/19/2024 3:33 PM EDT [facility] Urobilinogen, UA 1.0 E.U./dL 0.2 - 1.0 E.U./dL 08/19/2024 3:33 PM EDT [facility] Urine Urine specimen obtained by clean catch procedure / Unknown Collection / Unknown 08/19/2024 3:02 PM EDT 08/19/2024 3:13 PM EDT us Kt Fan DO URINE ORDERABLES Final Resu lt Performing Organization Address City/[facility]/ZIP Co de Phone Number [facility]
[address] [place] [address], [place] [phone] * Amylase (08/19/2024 3:02 PM EDT) Amylase 73 28 - 100 U/L 08/19/2024 3:36 PM EDT [facility] Blood Line / Unknown 08/19/2024 3: 02 PM EDT 08/19/2024 3:10 PM EDT us Kt Fan DO LAB BLOOD ORDERABLES Final Result Performing Organization Address [facility] Co de Phone Number [facility]
[address] [place] [address], [place] [phone] * Lipase (08/19/2024 3:02 PM EDT) Lipase 13 13 - 60 U/L 08/19/2024 3:36 PM EDT [facility] Blood Line / Unknown 08/19/2024 3: 02 PM EDT 08/19/2024 3:10 PM EDT us Kt Fan DO LAB BLOOD ORDERABLES Final Result Performing Organization Address City/[facility]/ZIP Co de Phone Number [facility]
[address] [place] [address], * (ABNORMAL) Comprehensive Metabolic Panel (08/19/2024 3:02 PM EDT) [facility] Glucose 75 65 - 99 mg/dL 08/19/2024 3:38 PM EDT [facility] BUN 3.6(L) 6.0 - 20.0 mg/dL 08/19/2024 3:38 PM EDT [facility] Creatinine 0.51(L) 0.57 - 1.00 mg/dL 08/19/2024 3:38 PM EDT [facility] Sodium 137 136 - 145 mmol/L 08/19/2024 3:38 PM EDT [facility] Potassium 2.6(LL) 3.5 - 5.2 mmol/L 08/19/2024 3:38 PM EDT [facility] Comment:Specimen hemolyzed. Result may be falsely elevated. Chloride 99 98 - 107 mmol/L 08/19/2024 3:38 PM EDT [facility] CO2 24.2 22.0 - 29.0 mmol/L 08/19/2024 3:38 PM EDT [facility] Calcium 8.8 8.6 - 10.5 mg/dL 08/19/2024 3:38 PM EDT [facility] Total Protein 6.6 6.0 - 8.5 g/dL 08/19/2024 3:38 PM EDT [facility] Albumin 3.4(L) 3.5 - 5.2 g/dL 08/19/2024 3:38 PM EDT [facility] ALT (SGPT) 10 1 - 33 U/L 08/19/2024 3:38 PM EDT [facility] AST (SGOT) 22 1 - 32 U/L 08/19/2024 3:38 PM EDT [facility] Alkaline Phosphatase 64 39 - 117 U/L 08/19/2024 3:38 PM EDT [facility] Total Bilirubin 0.5 0.0 - 1.2 mg/dL 08/19/2024 3:38 PM EDT [facility] Globulin 3.2 gm/dL 08/19/2024 3:38 PM EDT [facility] Comment:Calculated Result A/G Ratio 1.1 g/dL 08/19/2024 3:38 PM EDT [facility] BUN/Creatinine Ratio 7.1 7.0 - 25.0 08/19/2024 3:38 PM EDT [facility] Anion Gap 13.8 5.0 - 15.0 mmol/L 08/19/2024 3:38 PM EDT [facility] eGFR 126.6 >60.0 mL/min/1.7 3 08/19/2024 3:38 PM EDT [facility] Blood Line / Unknown 08/19/2024 3: 02 PM EDT 08/19/2024 3:10 PM EDT Narrative [facility] - 08/19/2024 3:38 PM [...] Fan DO LAB BLOOD ORDERABLES Final Result [facility]
[address] [place] [address], * Type & Screen (08/19/2024 3:02 PM EDT) ABO Type O 08/19/2024 3:51 PM EDT [facility] RH type Positive 08/19/2024 3:51 PM EDT [facility] Antibody Screen Negative 08/19/2024 3:51 PM EDT [facility] T&S Expiration Date 08/22/2024 11:59:59 PM 08/19/2024 3:51 PM EDT [facility] Blood Line / Unknown 08/19/2024 3: 02 PM EDT 08/19/2024 3:15 PM EDT Kt Fan DO BLOOD BANK TEST ORDERABLES Edited Result - Final [facility]
[address] [place] [address], documented in this encounter Visit Diagnoses Diagnosis [...] documented as of this encounter Care Teams Radiation Control Technician Relationship Specialty Start Date End Date Norma Friedman APRN [address] [place] G3 RAFAELA APPIAH [id number] PCP - General Family Medicine 05/14/24 documented as of this encounter
--- OUTSIDE RECORDS SUMMARY | 2024-08-20 13:33 | XMS_ITS | Encounter Summary ---
[facility] Address [address] [place] [address] Care Team Providers Care Keyboard Instrument Repairer Name Role Phone Norma Friedman APRN Primary Care Provider + [phone] Reason for Visit * Reason Comments Vaginal Bleeding * Auth/Cert (Routine) Specialty Diagnoses / Procedures Referred By Tarik t Referred To Contact Referral ID Status Reason Start Date Expiration Date Visits Re quested Visits Authorized [id number] 1 1 Encounter Details Date Type Department Care Team (Late st Contact Info) Description 08/20/2024 1:33 PM EDT - 08/20/2024 2:05 PM EDT Surgery [facility] [address] [place] [address] Blu Alvarado MD [address] [facility] [address] [place] [address] ESOPHAGOGASTRODUODENOSCOPY [50535 (CPT )] Social History Tobacco Use Types Packs/Day Years [...] and heating? Not hard at all 05/28/2024 [facility] - Occupational Stress Questionnaire Answer Date Recorded [...] or equivalent No 05/28/2024 Preferred Language South Korean 05/28/2024 PHQ-2 Answer Date Recorded Patient Health [...] Sign Reading Time Taken Comments Blood Pressure 94/60 08/20/2024 1:27 PM EDT Pulse 68 08/20/2024 1:27 PM EDT Temperature 36.8 C (98.2 F) 08/20/2024 1:27 PM EDT Respiratory Rate 18 08/20/2024 1:27 PM EDT Oxygen Saturation 94% 08/20/2024 1:27 PM EDT Inhaled Oxygen Concentration - - Weight 71.7 kg (158 lb) 08/19/2024 2:33 PM EDT Height 160 cm (5' 3 ) 08/19/2024 2:33 PM EDT Body Mass Index 27.99 08/19/2024 2:33 PM EDT documented in this encounter Functional Status * Question Answer Date of Assessment Author 1. Wish to be (Past 1 Month) No 025 1:23 PM EDT Polly Cabrera, BRIT 2. Non-Specific Active Suici mike Thoughts (Past 1 Month) No 08/20/2024 1:23 PM EDT Diego Cabrera RN * Calculated C-SSRS Risk Score (Lifetime/Recent) Answer Date of Assessment Author No Risk Indicated 08/20/2024 1:23 PM EDT Polly Lacey RN * Toole Suicide Severity Rating Scale (Screener/Recent Self-Report) Question [...] Labs [facility] Results Pending at Discharge Pending Labs Order Current Status Tissue Pathology Exam In process Rob Wharton MD 08/20/24 15:36 EDT Time: Discharge <30 min documented in this encounter Discharge Instructions * Attachments The following attachments cannot be sent through Care Everywhere. * Second Trimester of (South Korean) * Upper Endoscopy Adult Care After (South Korean) documented in this encounter Medications at Time [...] 08/19/2024 RH Positive 08/19/2024 ABSCRN Negative 08/19/2024 [id number] non-reactive 04/12/2024 HEPCVIRUSABY negative 04/12/2024 URINECX Final [...] IUPC: Resting Tone: Resting Tone by IUPC: Helix Units: Cervix: Exam by: Method: sterile vaginal [...] her third trimesters prior pregnancies(etiology unknown). Patient's office analyst is in [facility]. She states has never had [...] IUPC: Resting Tone: Resting Tone by IUPC: Helix Units: Laboratory Results: Lab Results (last 24 [...] AM EDTAssociated Order(s): IP CONSULT TO [place] [facility] [place] Referring Provider: Dr. Fan/Dr. Wharton [...] expresses concern regarding recent CT scan at [facility] revealing a hiatal hernia. CT scan done prior to most recent due to ovarian cyst and incidentally revealed hiatal hernia. She reports chronic gastrointestinal symptoms. Review of medical record revealed prior GI referral due to blood per rectum. She reports colonoscopy in 2020 at outside facility that revealed diverticulosis and benign colon polyp. She is currently established with provider at [facility] for gastroenterology care she reports repeat EGD [...] , await recommendations following EGD - consider TIMBER GIRDLER evaluation if no etiology for difficulty swallowing [...] her third trimesters prior pregnancies(etiology unknown). Patient's office analyst is in [facility]. She states has never had [...] IUPC: Resting Tone: Resting Tone by IUPC: Helix Units: Laboratory Results: Lab Results (last 24 [...] Visit [facility] GASTRO[facility]OLOGY [address] [address] Robbin Escalante MD [address] [address] documented as of this encounter Procedures Procedure [...] NONSTRESS TEST Routine 08/19/2024 4:17 PM EDT [facility] Routine 08/19/2024 3:25 [...] EDT) Case Report Surgical Pathology Report Case: [id number] Authorizing Provider: Blu Alvarado MD Collected: 08/20/2024 01:55 PM Ordering Location: [facility] Received: 08/20/2024 02:14 PM ENDO SUITES Pathologist: Khalida Rhoades DO Specimen: Gastric, Antrum, antrum bx for path 08/22/2024 9:18 AM EDT [facility] Clinical Information Dysphagia, unspecified type 08/22/2024 9:18 AM EDT [facility] Final Diagnosis Stomach, antrum, biopsy: 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 pylori is negative (no organisms are identified) Negative for intestinal metaplasia, dysplasia, or malignancy 08/22/2024 9:18 AM EDT [facility] at 0918 EDT Gross Description 1. Gastric, Antrum. Received in formalin labeled antrum biopsy is a 0.4 x 0.2 x 0.2 cm pink-see soft tissue fragment submitted entirely in a single cassette. HDM 08/22/2024 9:18 AM EDT [facility] Microscopic Description The slides are reviewed and demonstrate histopathologic features supporting the above rendered diagnosis. 08/22/2024 9:18 AM EDT [facility] Tissue Pyloric antrum structure / Unknown 08/20/2024 1:55 PM EDT 08/20/2024 2:14 PM EDT us Blu Alvarado MD PATHOLOGY/CYTOLOGY ORDERABLES Final Result [facility]
[address] [place] [address], * Upper GI Endoscopy (08/20/2024 1:09 PM EDT) us Blu Alvarado MD INTERFACE NEEDS Final Result * (ABNORMAL) Basic Metabolic Panel (08/20/2024 5:25 AM EDT) Glucose 84 65 - 99 mg/dL 08/20/2024 6:13 AM EDT [facility] BUN 2.3(L) 6.0 - 20.0 mg/dL 08/20/2024 6:13 AM T [facility] Creatinine 0.51(L) 0.57 - 1.00 mg/dL 08/20/2024 6:13 AM [facility] Sodium 139 136 - 145 mmol/L 08/20/2024 6:13 AM EDT [facility] Potassium 3.5 3.5 - 5.2 mmol/L 08/20/2024 6:13 AM EDT [facility] Chloride 109(H) 98 - 107 mmol/L 08/20/2024 6:13 AM [facility] CO2 23.5 22.0 - 29.0 mmol/L 08/20/2024 6:13 AM [facility] Calcium 7.8(L) 8.6 - 10.5 mg/dL 08/20/2024 6:13 AM [facility] BUN/Creatinine Ratio 4.5(L) 7.0 - 25.0 08/20/2024 6:13 AM [facility] Anion Gap 6.5 5.0 - 15.0 mmol/L 08/20/2024 6:13 AM [facility] eGFR 126.6 >60.0 mL/min/1.7 3 08/20/2024 6:13 AM [facility] Blood Venipuncture / Unknown 08/20/2024 5:25 AM EDT 08/20/2024 5:46 AM T [facility] - 08/20/2024 [...] ORDERABLES Final Resu lt Performing Organization Address City/[facility]/ZIP Co de Phone Number [facility]
[address] [place] [address], * (ABNORMAL) Potassium (08/19/2024 8:53 PM EDT) Potassium 2.7(L) 3.5 - 5.2 mmol/L 08/19/2024 9:20 PM EDT [facility] Blood Venipuncture / Unknown 08/19/2024 8:53 PM EDT 08/19/2024 9:04 PM EDT Kt Fan DO LAB BLOOD ORDERABLES Final Result Performing Organization Address [facility] Co de Phone Number [facility]
[address] [place] [address], * ABO RH Specimen Verification (08/19/2024 4:34 PM EDT) ABO Type O 08/19/2024 7:39 PM EDT [facility] RH type Positive 08/19/2024 7:39 PM EDT [facility] Blood Venipuncture / Unknown 08/19/2024 4:34 PM EDT 08/19/2024 4:53 PM EDT Rob Wharton MD BLOOD BANK TEST ORDER FRANCO Final Result Performing Organization Address City/[facility]/ZIP Co de Phone Number [facility]
[address] [place] [address], * [facility] (08/19/2024 3:25 PM EDT) Anatomical Region Laterality Modality Ultrasound 08/19/2024 3:09 PM EDT Narrative 08/19/2024 4:54 PM EDT PAT NAME: CAROLE GIRARD MED REC#: [id number] DA: 1990 PAT GEND: F PAT TYPE: E EXAM TRAVIS: [id number] REF PHYS ROB WHARTON Comparison Studies The [...] EFW (oz) 9 oz EFW by: Hadlock ([id number]) Extended Cav. septi pel. tr 4.7 mm Lumpia Wrapper Maker 3.8 mm CM 7.5 mm 84% Nicolaides [...] Heart / Thorax 3-vessel view: Appears normal 1-npotgp-dnwvnxy view: Appears normal Stomach: Appears normal Kidneys: [...] in 4wks for growth. Coding ======= Description: 03381-04 Follow Up Cable Swager: Alison Verduzco RT R , MS Physician: Jo Chappell MD Electronically signed by: Jo Chappell MD at: 16:54 Procedure Note Jo Chappell MD - 08/19/2024 PAT NAME: CAROLE GIRARD MED REC#: [id number] DA: [id number] PAT GEND: F PAT TYPE: E EXAM TRAVIS: [id number] REF PHYS ROB WHARTON Comparison Studies The findings of this study are compared to the prior ultrasound studydated 07/22/24 Patient Status Inpatient Indication ======== History of c/s x1. History of . Vaginal bleeding. Maternal Assessment Qjcsvs803 cm Height (ft)5 ft Height (in)4 in Whqfpf63 kg Weight (lb)158 lb BMI27.31 kg/m Method ======= Transabdominal ultrasound examination. View: Limited by patient bodyhabitus ========= Love . Number of fetuses: 1 Dating ====== Method of dating:based on stated DUSTY GA by prior xezoctdaam50 w + 1 d DUSTY by prior [...] Hadlock Femur44.9 mm 24w 6d 27% Hadlock Kacmmqc09.3 mm 25w 3d 50% Jamal HC / AC1.16 YFI988 g 24w 2d 16% Hadlock EFW (lb)1 lb EFW (oz)9 oz EFW by:Hadlock ([id number]) Extended Cav. septi pel. tr4.7 mm Vp3.8 mm CM7.5 mm 84% Nicolaides Head / Face / Neck Cephalic index0.71 <1% Nicolaides Extremities / Bony Struc FL / BPD0.78 FL / HC0.20 FL / AC0.23 Other Structures QXD052 bpm General Evaluation Cardiac activity present. FHR [...] normal Heart / Thorax 3-vessel view:Appears normal 2-qhtkkq-nhvyvqz view:Appears normal Stomach:Appears normal Kidneys:Appears normal Bladder:Appears normal Gender:female Wants to know gender:yes Maternal Structures Uterus / Cervix Cervix:Visualized Approach:Transabdominal Cervical tdwbev59.9 mm Doppler Arterial Umbilical A PI1.01 32% [...] office in 4wks for growth. Coding ======= Description:37502-75 Follow Up Cable Swager: RT Annetta Hartmann , [facility] Physician: Jo Chappell MD Electronically signed by: Jo Chappell MD at: 16:54 us Kt Fan DO [facility] [place] ORDERABLES Final Res ult * Protein / Creatinine Ratio, Urine - Urine, Clean Catch (08/19/2024 3:02 PM EDT) Protein/Creati nine Ratio, Urine 126.1 0.0 - 200.0 mg/G Crea 08/20/2024 12:47 AM EDT [facility] Creatinine, Urine 148.3 mg/dL 08/20/2024 12:47 AM EDT [facility] Total Protein, Urine 18.7 mg/dL 08/20/2024 12:47 AM EDT [facility] Urine Urine specimen obtained by clean catch procedure / Unknown Collection / Unknown 08/19/2024 3:02 PM EDT 08/19/2024 4:26 PM EDT Kt Fan DO URINE ORDERABLES Final Resu lt [facility]
[address] [place] [address], [place] [phone] * (ABNORMAL) Magnesium (08/19/2024 3:02 PM EDT) Magnesium 1.5(L) 1.6 - 2.6 mg/dL 08/19/2024 5:12 PM EDT [facility] Blood Line / Unknown 08/19/2024 3: 02 PM EDT 08/19/2024 3:10 PM EDT Kt Fan DO LAB BLOOD ORDERABLES Final Result Performing Organization Address City/[facility]/ZIP Co de Phone Number [facility]
[address] [place] [address], [place] [phone] * Urinalysis, Microscopic Only - Urine, Clean Catch (08/19/2024 3:02 PM EDT) RBC, UA 0-2 None Seen, 0-2 /HPF 08/19/2024 3:33 PM EDT [facility] WBC, UA 0-2 None Seen, 0-2 /HPF 08/19/2024 3:33 PM EDT [facility] Bacteria, UA None Seen None Seen /HPF 08/19/2024 3:33 PM EDT [facility] Squamous Epithelial Cells, UA 0-2 None Seen, 0-2 /HPF 08/19/2024 3:33 PM EDT [facility] Hyaline Casts, UA None Seen None Seen /LPF 08/19/2024 3:33 PM EDT [facility] Methodology Automated Microscopy 08/19/2024 3:33 PM EDT [facility] Urine Urine specimen obtained by clean catch procedure / Unknown Collection / Unknown 08/19/2024 3:02 PM EDT 08/19/2024 3:13 PM EDT Kt Fan DO URINE ORDERABLES Final Resu lt [facility]
[address] [place] [address], * (ABNORMAL) CBC Auto Differential (08/19/2024 3:02 PM EDT) WBC 9.19 3.40 - 10.80 10*3/mm3 08/19/2024 3:23 PM EDT [facility] RBC 3.58(L) 3.77 - 5.28 10*6/mm3 08/19/2024 3:23 PM EDT [facility] Hemoglobin 10.5(L) 12.0 - 15.9 g/dL 08/19/2024 3:23 PM EDT [facility] Hematocrit 31.4(L) 34.0 - 46.6 % 08/19/2024 3:23 PM EDT [facility] MCV 87.7 79.0 - 97.0 fL 08/19/2024 3:23 PM EDT [facility] MCH 29.3 26.6 - 33.0 pg 08/19/2024 3:23 PM EDT [facility] MCHC 33.4 31.5 - 35.7 g/dL 08/19/2024 3:23 PM EDT [facility] RDW 13.4 12.3 - 15.4 % 08/19/2024 3:23 PM EDT [facility] RDW-SD 42.4 37.0 - 54.0 fl 08/19/2024 3:23 PM EDT [facility] MPV 12.0 6.0 - 12.0 fL 08/19/2024 3:23 PM EDT [facility] Platelets 241 140 - 450 10*3/mm3 08/19/2024 3:23 PM EDT [facility] Neutrophil % 66.8 42.7 - 76.0 % 08/19/2024 3:23 PM EDT [facility] Lymphocyte % 24.4 19.6 - 45.3 % 08/19/2024 3:23 PM EDT [facility] Monocyte % 7.6 5.0 - 12.0 % 08/19/2024 3:23 PM EDT [facility] Eosinophil % 0.7 0.3 - 6.2 % 08/19/2024 3:23 PM EDT [facility] Basophil % 0.2 0.0 - 1.5 % 08/19/2024 3:23 PM EDT [facility] Immature Grans % 0.3 0.0 - 0.5 % 08/19/2024 3:23 PM EDT [facility] Neutrophils, Absolute 6.14 1.70 - 7.00 10*3/mm3 08/19/2024 3:23 PM EDT [facility] Lymphocytes, Absolute 2.24 0.70 - 3.10 10*3/mm3 08/19/2024 3:23 PM EDT [facility] Monocytes, Absolute 0.70 0.10 - 0.90 10*3/mm3 08/19/2024 3:23 PM EDT [facility] Eosinophils, Absolute 0.06 0.00 - 0.40 10*3/mm3 08/19/2024 3:23 PM EDT [facility] Basophils, Absolute 0.02 0.00 - 0.20 10*3/mm3 08/19/2024 3:23 PM EDT [facility] Immature Grans, Absolute 0.03 0.00 - 0.05 10*3/mm3 08/19/2024 3:23 PM EDT [facility] nRBC 0.0 0.0 - 0.2 /100 WBC 08/19/2024 3:23 PM EDT [facility] Blood Line / Unknown 08/19/2024 3: 02 PM EDT 08/19/2024 3:10 PM EDT Kt Fan DO LAB BLOOD ORDERABLES Final Result [facility]
[address] [place] [address], * (ABNORMAL) Urinalysis With Microscopic If Indicated (No Culture) - Urine, Clean Catch (08/19/2024 3:02 PM EDT) Color, UA Yellow Yellow, Straw 08/19/2024 3:33 PM EDT [facility] Appearance, UA Clear Clear 08/19/2024 3:33 PM EDT [facility] pH, UA >=9.0(H) 5.0 - 8.0 08/19/2024 3:33 PM EDT [facility] Specific Gratis, UA 1.018 1.005 - 1.030 08/19/2024 3:33 PM EDT [facility] Glucose, UA Negative Negative 08/19/2024 3:33 PM EDT [facility] Ketones, UA 15 mg/dL (1+)(A) Negative 08/19/2024 3:33 PM EDT [facility] Bilirubin, UA Negative Negative 08/19/2024 3:33 PM EDT [facility] Blood, UA Negative Negative 08/19/2024 3:33 PM EDT [facility] Protein, UA 30 mg/dL (1+)(A) Negative 08/19/2024 3:33 PM EDT [facility] Leuk Esterase, UA Negative Negative 08/19/2024 3:33 PM EDT [facility] Nitrite, UA Negative Negative 08/19/2024 3:33 PM EDT [facility] Urobilinogen, UA 1.0 E.U./dL 0.2 - 1.0 E.U./dL 08/19/2024 3:33 PM EDT [facility] Urine Urine specimen obtained by clean catch procedure / Unknown Collection / Unknown 08/19/2024 3:02 PM EDT 08/19/2024 3:13 PM EDT us Kt Fan DO URINE ORDERABLES Final Resu lt [facility]
[address] [place] [address], [place] [phone] * Amylase (08/19/2024 3:02 PM EDT) Amylase 73 28 - 100 U/L 08/19/2024 3:36 PM EDT [facility] Blood Line / Unknown 08/19/2024 3: 02 PM EDT 08/19/2024 3:10 PM EDT us Kt Fan DO LAB BLOOD ORDERABLES Final Result Performing Organization Address [facility] Co de Phone Number [facility]
[address] [place] [address], [place] [phone] * Lipase (08/19/2024 3:02 PM EDT) Lipase 13 13 - 60 U/L 08/19/2024 3:36 PM EDT [facility] Blood Line / Unknown 08/19/2024 3: 02 PM EDT 08/19/2024 3:10 PM EDT us Kt Fan DO LAB BLOOD ORDERABLES Final Result Performing Organization Address City/[facility]/ZIP Co de Phone Number [facility]
[address] [place] [address], [place] [phone] * (ABNORMAL) Comprehensive Metabolic Panel (08/19/2024 3:02 PM EDT) Glucose 75 65 - 99 mg/dL 08/19/2024 3:38 PM EDT [facility] BUN 3.6(L) 6.0 - 20.0 mg/dL 08/19/2024 3:38 PM T [facility] Creatinine 0.51(L) 0.57 - 1.00 mg/dL 08/19/2024 3:38 PM EDT [facility] Sodium 137 136 - 145 mmol/L 08/19/2024 3:38 PM T [facility] Potassium 2.6(LL) 3.5 - 5.2 mmol/L 08/19/2024 3:38 PM [facility] Comment:Specimen hemolyzed. Result may be falsely elevated. Chloride 99 98 - 107 mmol/L 08/19/2024 3:38 PM [facility] CO2 24.2 22.0 - 29.0 mmol/L 08/19/2024 3:38 PM T [facility] Calcium 8.8 8.6 - 10.5 mg/dL 08/19/2024 3:38 PM T [facility] Total Protein 6.6 6.0 - 8.5 g/dL 08/19/2024 3:38 PM [facility] Albumin 3.4(L) 3.5 - 5.2 g/dL 08/19/2024 3:38 PM [facility] ALT (SGPT) 10 1 - 33 U/L 08/19/2024 3:38 PM T [facility] AST (SGOT) 22 1 - 32 U/L 08/19/2024 3:38 PM T [facility] Alkaline Phosphatase 64 39 - 117 U/L 08/19/2024 3:38 PM [facility] Total Bilirubin 0.5 0.0 - 1.2 mg/dL 08/19/2024 3:38 PM T [facility] Globulin 3.2 gm/dL 08/19/2024 3:38 PM T [facility] Comment:Calculated Result A/G Ratio 1.1 g/dL 08/19/2024 3:38 PM EDT [facility] BUN/Creatinine Ratio 7.1 7.0 - 25.0 08/19/2024 3:38 PM EDT [facility] Anion Gap 13.8 5.0 - 15.0 mmol/L 08/19/2024 3:38 PM EDT [facility] eGFR 126.6 >60.0 mL/min/1.7 3 08/19/2024 3:38 PM EDT [facility] Blood Line / Unknown 08/19/2024 3: 02 PM EDT 08/19/2024 3:10 PM EDT [facility] - 08/19/2024 3:38 PM EDT [...] Fan DO LAB BLOOD ORDERABLES Final Result [facility]
[address] [place] [address], * Type & Screen (08/19/2024 3:02 PM EDT) ABO Type O 08/19/2024 3:51 PM EDT [facility] RH type Positive 08/19/2024 3:51 PM EDT [facility] Antibody Screen Negative 08/19/2024 3:51 PM EDT [facility] T&S Expiration Date 08/22/2024 11:59:59 PM 08/19/2024 3:51 PM EDT [facility] Blood Line / Unknown 08/19/2024 3: 02 PM EDT 08/19/2024 3:15 PM EDT Kt Fan DO BLOOD BANK TEST ORDERABLES Edited Result - Final [facility]
[address] [place] [address], documented in this encounter Visit Diagnoses Diagnosis Dysphagia- Primary Dysphagia, unspecified type History of Other postprocedural status Dysphagia, unspecified type documented in this encounter Admitting Diagnoses Diagnosis [...] BPA Driven Protocol Open Order & [facility] Electrolyte Replacement Protocol Algorithm to View [...] Nicole RN)2150 (New Bag - Provider: Yun Nicole, BRIT - Comment: Slowed down infusion)2234 (New Bag - Provider: Yun Nicole RN)233 (New Bag - Provider: Yun Nicole RN) 004 (New Bag - Provider: Yun Nicole RN [...] documented as of this encounter Care Teams Keyboard Instrument Repairer Relationship Specialty Start Date End Date Norma Friedman APRN [address] [place] G3 RAFAELA APPIAH [address] PCP - General Family Medicine 05/14/24 documented as of this encounter
--- OUTSIDE RECORDS SUMMARY | 2024-08-20 13:44 | XMS_ITS | Encounter Summary ---
[facility] Address [address] [place] [id number] Care Team Providers Care Facilities Maintenance Engineer Name Role Phone IvyKade goldbergdev FERNÁNDEZ Primary Care Provider + [phone] Reason for Visit * Auth/Cert (Routine) Specialty Diagnoses / Procedures Referred By Contac t Referred To Contact Referral ID Status Reason Start Date Expiration Date Visits Re quested Visits Authorized 1 1 Encounter Details Date Type Department Care Team (Late st Contact Info) Description 08/20/2024 1:44 PM EDT Anesthesia Event [facility] ENDO SUITES [address] [place] [address] Akash Anguiano MD [address] [place] [address] Liborio Peralta CRNA [address] [place] [address] Anesthesia Record Procedure Summary Procedure Name Responsible [...] heating? Not hard at all 05/28/2024 [facility] [place] of Occupat ional Health - Occupational Stress [...] GED or equivalent No 05/28/2024 Preferred Language Beninese 05/28/2024 PHQ-2 Answer Date Recorded Patient Health [...] PM EDT Polly Lacey RN * [place] Suicide Severity Rating Scale (Screener/Recent Self-Report) Question Answer Date of Assessment Author 6. Suicidal Behavior (Lifetime) No 1:23 PM EDT Polly Cabrera RN documented as of this encounter OR Notes * Anesthesia Postprocedure Evaluation - Liborio Peralta CRNA - 08/20/2024 2:18 PM EDT Patient: Whitney Presley Procedure Summary Date: 08/20/24 Room / Location: [facility] ENDOSCOPY 3 / [facility] [...] sounds: normal. 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 Plan discussed with INDUSTRIAL ACCOUNTANT. CODE STATUS: documented in this encounter Plan of Treatment Upcoming Encounters Date Type Department Care Team (Late st Contact Info) Description 01/20/2025 3:30 PM EST Office Visit [facility]OENTEROLOGY [address] [address] Robbin Escalante MD [address] [address] documented as of this encounter Procedures Procedure [...] and Staff Patient location during procedure: [place] INDUSTRIAL ACCOUNTANT/CAA: Junior Zbigniew Jain, DAYNE Indications and Patient [...] documented as of this encounter Care Teams Facilities Maintenance Engineer Relationship Specialty Start Date End Date Norma Friedman APRN [address] [place] [address] [place] [id number] PCP - General Family Medicine 05/14/24 documented as of this encounter
--- OUTSIDE RECORDS SUMMARY | 2024-08-29 10:00 | XMS_ITS | Encounter Summary ---
Author Organization [facility] Address [address] [place] [address] Care Team Providers Care Distribution Center Administrator Name Role Phone IvyKade goldbergjoseseven JOLENE Primary Care Provider + [phone] Reason for Visit * Reason Comments Problem Encounter Details Date Type Department Care Team (Late st Contact Info) Description 08/29/2024 10:00 AM EDT Routine [facility] O[facility] [address] [place] [address] Staci Jain MD [address] [place] [address] GA: 26w4d Social History Tobacco Use Types Packs/Day Years Used Date Smoking Tobacco: Never Smokeless Tobacco: Never Alcohol Use Standard Drinks/Week Comments Never 0 (1 standard drink = 0.6 oz pur e alcohol) [facility] Utilities Answer Date Recorded In the past 12 months has [employer], gas, oil, or water [employer] threatened to shut off services in your [...] and heating? Not hard at all 05/28/2024 [facility] [place] [facility] - Occupational Stress Questionnaire [...] [facility] [address] [address] Robbin Escalante MD [address] [address] documented as of this encounter Procedures Procedure [...] 08/30/2024 6:09 AM EDT Performed at: [address] [id number] Passenger Service Supervisor: Kevin Harman MD, Phone: [phone] Patient Fasting: N us Staci Jain MD LAB BLOOD ORDERABLES Final Result [facility] (AMBULATORY) [address] [place] [address], [facility] [address] [place] [address], * (ABNORMAL) Comprehensive Metabolic Panel (08/29/2024 11:05 [...] AM EDT 08/29/2024 Narrative [facility] (AMBULATORY) - 08/30/2024 6:09 AM EDT Performed at: 01 - [place] [address] [address] [place], [place] [id number] Passenger Service Supervisor: Kevin Harman MD, Phone: [phone] Patient Fasting: N Staci Jain MD LAB BLOOD ORDERABLES Final Result Performing Organization Address City/[facility]/ZIP Co de Phone Number [facility] ([facility]UL[facility]) [address] [place] [address], [place] [phone] [facility] [address] [place] [address], [place] [phone] * (ABNORMAL) POC Urinalysis Dipstick (08/29/2024 10:13 AM EDT) Glucose, UA Negative Negative mg/dL [facility] Protein, POC Trace(A) Negative mg/dL [facility] Urine 08/29/2024 10:1 3 AM EDT us Staci Jain MD POINT OF CARE TEST OR DERABLES Final Result Performing Organization Address City/[facility]/ZIP Co de Phone Number [facility]
[address] [place] [address], documented in this encounter Visit Diagnoses Diagnosis [...] as of this encounter Care Teams Distribution Center Administrator Relationship Specialty Start Date End Date Norma Friedman APRN [address] [place] G[address] RAFAELA APPIAH [address] PCP - General Family Medicine 05/14/24 documented as of this encounter
--- OUTSIDE RECORDS SUMMARY | 2024-09-15 15:10 | XMS_ITS | Clinical Summary ---
Author Organization [facility] [place] [address] Phone Care Team Providers Care Pie Cutter Name Role Phone Unavailable Primary Care Provider [...] migh t be different from the original. [facility] - Edwardo Ojeda MD Interventional Pain Protocol: NS Appt 03/29/22 Letter Sent Maxime report completed (EVERY 3 MONTHS) ( 03/23/22) Pharmacy: [facility] [address] [place] [phone] [address] [facility] south - [phone] No known active problems Social History Tobacco [...] patient's age to complete this topic Insurance [employer] [facility] [place] [address] [place] [id number] [facility] [employer] [facility] [place]
--- OUTSIDE RECORDS SUMMARY | 2024-09-15 15:10 | XMS_ITS | Encounter Summary ---
Author Organization Healthcare Address [address] [place] [id number] Care Team Providers Care Production Line Operator Name Role Phone Unavailable Primary Care Provider Unavailabl e Reason for Referral * Consultation (Routine) - Authorized Specialty Diagnoses / Procedures Referred By Contac t Referred To Contact Nephrology Diagnoses History of proteinuria syndrome care, subsequent , second trimester Staci Jain MD [address] [address] Phone: tel: fax: [facility] Nephrology, Bone & Mineral Metabolism [address], [address] [place] [address] Phone: tel: fax: Referral ID Status Reason Start Date Expiration Date Visits Requested Visits Authorized [id number] Authorized Specialty Services Required 07/22/2024 01/21/2026 1 1 Encounter Details Date Type Department Care Team (Late st Contact Info) Description 07/22/2024 [facility] [address] [place] [address] Staci Jain MD [address] [place] [address] History of proteinuria syndrome (Primary Dx); care, [...]
--- OUTSIDE RECORDS SUMMARY | 2024-09-15 15:10 | XMS_ITS | Encounter Summary ---
[facility] Address [address] [place] [id number] Care Team Providers Care Baseball Scout Name Role Phone Elder Norma FERNÁNDEZ Primary Care Provider + [phone] Encounter Details Date Type Department Care Team (Late st Contact Info) Description 07/07/2024 Results Follow-Up [facility] OBGYN [address] [place] [address] [place] [phone] Kelly Delgado APRN [address] [facility] [address] [place] [address] Social History Tobacco Use Types Packs/Day Years Used Date Smoking Tobacco: Never Smokeless Tobacco: Never Alcohol Use Standard Drinks/Week Comments Never 0 (1 standard drink = 0.6 oz pur e alcohol) [facility] Utilities Answer Date Recorded In the past 12 months has [employer], gas, oil, or water [employer] threatened to shut off services in your [...] hard at all 05/28/2024 [facility] of Occupat ional Health - [...] [facility] GASTROENTEROLOGY [address] [facility] [address] [address] Robbin Escalante MD [address] [address] documented as of this encounter Visit Diagnoses Not on filedocumented in this encounter Additional Health Concerns Assessment Noted Time PHQ-2 Depression Total Score: 2 05/28/19 25 4:39 PM EDT documented as of this encounter Care Teams Baseball Scout Relationship Specialty Start Date End Date Norma Friedman APRN [address] [place] [address] [place] [address] PCP - General Family Medicine 05/14/24 documented as of this encounter
--- OUTSIDE RECORDS SUMMARY | 2024-09-15 15:10 | XMS_ITS ---
Author Organization [facility] Address [address] [place] [address] Care Team Providers Care Optical Engineering Technician Name Role Phone Unavailable Primary Care Provider Unavailabl e Transplant Episode Kidney Potential Donor [facility] ([place], [place]) - [facility] Referred on 05/03/2022 Marked as Deferred on 05/04/2022 Reason: Other Kidney CoordinatorNadine Augustin R.N. Phone: N/A Fax: N/A Email: N/A Care Team Name Role Phone Fax Email Nadine Augustin R.N. Kidney Coordinator N/A N/A N/A Events Pre-Donation Referred: 05/03/2022
--- OUTSIDE RECORDS SUMMARY | 2024-09-15 15:10 | XMS_ITS | Encounter Summary ---
[facility] [address] [place] [address] Care Team Providers Care Chain Mortiser Operator Name Role Phone Ivyashlyn Norma FERNÁNDEZ Primary Care Provider + [phone] Encounter Details Date Type Department Care Team (Late st Contact Info) Description 08/27/2024 Telephone [facility] OBGYN [address] [place] [address] Staci Jain MD [address] [facility] [address] [place] [address] Social History Tobacco Use Types Packs/Day Years Used Date Smoking Tobacco: Never Smokeless Tobacco: Never Alcohol Use Standard Drinks/Week Comments Never 0 (1 standard drink = 0.6 oz pur e alcohol) [facility] Utilities Answer Date Recorded In the past 12 months has [employer], [employer], oil, or water [employer] threatened to shut off services in your [...] 05/28/2024 [facility] [place] of Occupat ional Health - Occupational [...] GED or equivalent No 05/28/2024 Preferred Language Singaporean 05/28/2024 PHQ-2 Answer Date Recorded Patient Health [...] Office Visit [facility] GASTROENTEROLOGY [address] [phone] Robbin Escalante MD [address] [address] documented as of this encounter Visit Diagnoses Diagnosis History of hypokalemia- Primary documented in this encounter Additional Health Concerns Assessment Noted Time PHQ-2 Depression Total Score: 2 05/28/19 25 4:39 PM EDT documented as of this encounter Care Teams Chain Mortiser Operator Relationship Specialty Start Date End Date Norma Friedman APRN [address] [place] [address] [place] [address] PCP - General Family Medicine 05/14/24 documented as of this encounter
--- OUTSIDE RECORDS SUMMARY | 2024-09-15 15:10 | XMS_ITS | Encounter Summary ---
[facility] Address [address] [place] [address] Care Team Providers Care Information Technology Project Manager Name Role Phone Norma Friedman APRN Primary Care Provider + [phone] Encounter Details Date Type Department Care Team (Late st Contact Info) Description 08/19/2024 Telephone [facility] OBGYN [address] [place] [address] Jacey Mathews, KILN REPAIRER [address] [facility] [address] [place] [address] Social History Tobacco Use Types Packs/Day Years Used Date Smoking Tobacco: Never Smokeless Tobacco: Never Alcohol Use Standard Drinks/Week Comments Never 0 (1 standard drink = 0.6 oz pur e alcohol) [facility] Utilities Answer Date Recorded In the past 12 months has [employer], [employer], oil, or water [employer] threatened to shut off services in your [...] [facility] of Occupat ional [facility] - Occupational Stress Questionnaire Answer Date [...] EST Office Visit [facility] GASTROENTEROLOGY [address] [address] Robbin Escalante MD [address] [address] documented as of this encounter Visit Diagnoses Not on filedocumented in this encounter Additional Health Concerns Assessment Noted Time PHQ-2 Depression Total Score: 2 05/28/19 25 4:39 PM EDT documented as of this encounter Care Teams Information Technology Project Manager Relationship Specialty Start Date End Date Norma Friedman APRN [address] [place] [address] [place] [address] PCP - General Family Medicine 05/14/24 documented as of this encounter
--- OUTSIDE RECORDS SUMMARY | 2024-09-15 15:10 | XMS_ITS | Clinical Summary ---
Author Organization [employer] ([place], [place], [place], [place]) Address [address] [place] [address] Care Team Providers Care Grinder Name Role Phone Unavailable Primary Care Provider [...]
--- OUTSIDE RECORDS SUMMARY | 2024-09-15 15:10 | XMS_ITS | Clinical Summary ---
Author Organization [facility] Address [address] [place] [address] Care Team Providers Care Complaints Coordinator Name Role Phone Norma Friedman APRN Primary Care Provider + [phone] Allergies Active Allergy Reactions Criticality Noted Date [...] [facility] O[facility] [address] [place] [address] Rob Wharton MD 5 Telephone [facility] [address] [facility] [address] [place] [address] Rob Wharton MD 5 10:00 AM EDT Routine [facility] [address] [place] [address] Rob Wharton MD GA: 26w4d 5 Travel 5 Telephone [facility] [address] [facility] [address] [place] [address] Rob Wharton MD 5 Telephone [facility] OBG[facility] [address] [place] [address] Rob Wharton MD 5 1:44 PM EDT Anesthesia Event [facility] ENDO SUITES [address] [place] [address] Akash Anguiano MD Lanham, John, CRNA 5 1:33 PM EDT - 5 2:05 PM EDT Surgery [facility] ENDO SUITES [address] [place] [address] Blu Alvarado MD ESOPHAGOGASTRODUODENOSCOPY [36008 (CPT )] 5 1:59 PM EDT - 5 4:28 PM EDT Hospital Encounter [facility] ANTEPARTUM [address] [place] [address] Rob Wharton MD Brunner, Mark I, MD Dysphagia, unspecified type (Primary Dx) Discharge Disposition: Home or Self Care 5 10:15 AM EDT Routine [facility] O[facility] [address] [place] [address] Jacey Mathews, CLOTH FRAMER GA: 25w1d 5 Telephone [facility] OBGYN [address] [place] [address] Jacey Mathews, CLOTH FRAMER 5 Travel 5 Patient Outreach [facility] LABOR DELIVERY [address] [place] [address] Christy Zabala RN 5 9:10 AM EDT Routine [facility] OBGYN [address] [facility] [address] [place] [address] Rob Wharton MD GA: 21w1d 5 8:00 AM EDT Office Visit [facility] MATERNAL MEDICINE [address] [facility] [address] [place] [address] Sebastian Larsen MD History of prior with small for gestational age (Primary Dx) 5 7:44 AM EDT - 5 11:59 PM EDT Hospital Encounter [facility] US PER DIAG CTR [address] [place] [address] Kelly Delgado, CLOTH FRAMER care, antepartum, unspecified ; High risk due to history of labor, antepartum; History of prior with small for gestational age Discharge Disposition: Home or Self Care 5 Travel 5 Results Follow-Up [facility] [address] [facility] [address] [place] [address] Kelly Delgado, JOLENE 5 10:10 AM EDT Routine [facility] [address] [facility] [address] [place] [address] Kelly Delgado, CLOTH FRAMER GA: 18w5d 5 9:30 AM EDT Ancillary Procedure [facility] [address] [facility] [address] [place] [id number] care in second trimester, unspecified 5 Travel 5 Telephone [facility] [address] [facility] [address] [place] [address] Uriel Russ MD TRANSFER OF CARE REQ 5 10:15 PM EDT - 5 11:59 PM EDT Hospital Encounter [facility] LABOR DELIVERY [address] [place] [address] Rob Wharton MD Mirsky, Elizabeth, MD Discharge Disposition: Home or Self Care 5 Travel 5 Telephone [facility] [address] [facility] [address] [place] [address] Uriel Russ MD [facility], OB 5 Telephone [facility] OBGYN [address] [place] [address] Uriel Russ MD [facility] 5 [facility] [address] [place] [address] E-VisitToni MD 5 Results Follow-Up [facility] OBGYN [address] [place] [address] Uriel Russ MD 5 3:20 PM EDT Routine [facility] OBGYN [address] [place] [address] Uriel Russ MD GA: 17w2d 5 3:00 PM EDT Ancillary Procedure [facility] OBG[facility] [address] [place] [address] Bleeding in early (Primary Dx) 5 Travel 5 Telephone [facility] OBGYN [address] [place] [address] Uriel Russ MD from Last [...] Recorded In the past 12 months has [employer], gas, oil, or water [employer] threatened to shut off services in your [...] and heating? Not hard at all 05/28/2024 [place] [facility] Occupat ional Health - Occupational Stress [...] Office Visit [facility] GASTROENTEROLOGY [address] [address] Robbin Escalante MD [address] [address] Health Maintenance Due Date Last Done Comments [...] Routine 08/19/2024 4:17 PM EDT [facility] Routine 08/19/2024 3:25 PM [...] 10:02 AM EDT Multigravida in second trimester [facility] DI[facility]STIC C[facility] Routine 07/22/2024 9:10 AM [...] resultswithin the time period is included. Pathologist [facility] WBC 9.26 3.40 - 10.80 10*3/mm3 [facility] [...] 6:09 AM EDT Performed at: 01 - [address] [id number] Front Desk Coordinator: Kevin Harman MD, Phone: [phone] Patient Fasting: N us Rob Wahrton MD LAB BLOOD ORDERABLES Final Result [facility] (AMBULATORY) [address] [place] [address], [place] [phone] [facility] [address] [place] [address], [place] [phone] * (ABNORMAL) Comprehensive Metabolic Panel (08/29/2024 11:05 AM EDT) Only the most recent of3 resultswithin the time period is included. [facility] Glucose 72 65 - 99 mg/dL [facility] [...] 08/30/2024 6:09 AM EDT Performed at: [address] [place] [id number] Front Desk Coordinator: Kevin Harman MD, Phone: [phone] Patient Fasting: N Rob Wharton MD LAB BLOOD ORDERABLES Final Result Performing Organization Address [facility] Co de Phone Number [facility] (AMBULATORY) [address] [place] [address], [place] [phone] [facility] [address] [place] [address], [place] [phone] * (ABNORMAL) POC Urinalysis Dipstick (08/29/2024 10:13 AM EDT) Only the most recent of5 resultswithin the time period is included. Glucose, UA Negative Negative mg/dL [facility] Protein, POC Trace(A) Negative mg/dL [facility] Urine 08/29/2024 10:1 3 AM EDT Rob Wharton MD POINT OF CARE TEST OR DERABLES Final Result Performing Organization Address City/[facility]/ZIP Co de Phone Number [facility]
[address] [address], [place] [phone] * BH AN ETT AIRWAY (08/20/2024 2:02 PM EDT) Narrative Liborio Peralat CRNA - 08/20/2024 2:02 PM EDT Liborio Peralta CRNA 08/20/2024 2:03 PM Airway Reason: elective Date/Time: 08/20/2024 2:02 PM Airway not difficult General Information and Staff Patient location during procedure: OR TRAIN BRAKEMAN/CAA: Junior Zbigniew Wharton CRNA Indications and Patient [...] bilaterally with symmetric chest rise and fall [facility] TRAIN BRAKEMAN ANESTHESIA ORDERABLES Final Res ult * Tissue Pathology Exam (08/20/2024 1:55 PM EDT) Case Report Surgical Pathology Report Case: [id number] Authorizing Provider: Blu Alvarado MD Collected: 08/20/2024 01:55 PM Ordering Location: [facility] Received: 08/20/2024 02:14 PM ENDO SUITES Pathologist: Khalida Rhoades DO Specimen: Gastric, Antrum, antrum bx for path 08/22/2024 9:18 AM EDT [facility] LABORAT[facility] Clinical Information Dysphagia, unspecified type 08/22/2024 9:18 AM EDT [facility] LAB[facility] Final Diagnosis Stomach, antrum, biopsy: 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 pylori is negative (no organisms are identified) Negative for intestinal metaplasia, dysplasia, or malignancy 08/22/2024 9:18 AM EDT [facility] LABORATORY at 0918 EDT Gross Description 1. Gastric, Antrum. Received in formalin labeled antrum biopsy is a 0.4 x 0.2 x 0.2 cm pink-see soft tissue fragment submitted entirely in a single cassette. HDM 08/22/2024 9:18 AM EDT [facility] LABOR[facility]ORY Microscopic Description The slides are reviewed and demonstrate histopathologic features supporting the above rendered diagnosis. 08/22/2024 9:18 AM EDT [facility] Tissue Pyloric antrum structure / Unknown 08/20/2024 1:55 PM EDT 08/20/2024 2:14 PM EDT us Blu Alvarado MD PATHOLOGY/CYTOLOGY ORDERABLES Final Result [facility] LABORATORY
[address] [place] [address], * Upper GI Endoscopy (08/20/2024 1:09 PM EDT) us Blu Alvarado MD INTERFACE NEEDS Final Result * (ABNORMAL) Basic Metabolic Panel (08/20/2024 5:25 AM EDT) Glucose 84 65 - 99 mg/dL 08/20/2024 6:13 AM EDT [facility] BUN 2.3(L) 6.0 - 20.0 mg/dL 08/20/2024 6:13 AM EDT [facility] Creatinine 0.51(L) 0.57 - 1.00 mg/dL 08/20/2024 6:13 AM EDT [facility] Sodium 139 136 - 145 mmol/L 08/20/2024 6:13 AM EDT [facility] Potassium 3.5 3.5 - 5.2 mmol/L 08/20/2024 6:13 AM EDT [facility] Chloride 109(H) 98 - 107 mmol/L 08/20/2024 6:13 AM EDT [facility] CO2 23.5 22.0 - 29.0 mmol/L 08/20/2024 6:13 AM EDT [facility] Calcium 7.8(L) 8.6 - 10.5 mg/dL 08/20/2024 6:13 AM EDT [facility] LAB[facility] BUN/Creatinine Ratio 4.5(L) 7.0 - 25.0 08/20/2024 6:13 AM EDT [facility] Anion Gap 6.5 5.0 - 15.0 mmol/L 08/20/2024 6:13 AM EDT [facility] LAB[facility] eGFR 126.6 >60.0 mL/min/1.7 3 08/20/2024 6:13 AM EDT [facility] LAB[facility] Blood Venipuncture / Unknown 08/20/2024 5:25 AM EDT 08/20/2024 5:46 AM EDT [facility] LABORATORY - 08/20/2024 6:13 AM EDT [...] MD LAB BLOOD ORDERABLES Final Resu lt [facility] LABORATORY
[address] [place] [address], * (ABNORMAL) Potassium (08/19/2024 8:53 PM EDT) Potassium 2.7(L) 3.5 - 5.2 mmol/L 08/19/2024 9:20 PM EDT [facility] LABOR[facility] Blood Venipuncture / Unknown 08/19/2024 8:53 PM EDT 08/19/2024 9:04 PM EDT Kt Fan DO LAB BLOOD ORDERABLES Final Result Performing Organization Address City/[facility]/ZIP Co de Phone Number [facility] LABORATORY
[address] [place] [address], * ABO RH Specimen Verification (08/19/2024 4:34 PM EDT) ABO Type O 08/19/2024 7:39 PM EDT [facility] BB LABORATORY RH type Positive 08/19/2024 7:39 PM EDT [facility] BB LABORATORY Blood Venipuncture / Unknown 08/19/2024 4:34 PM EDT 08/19/2024 4:53 PM EDT Rob Wharton MD BLOOD BANK TEST ORDER FRANCO Final Result Performing Organization Address [facility] de Phone Number [facility] LABORATORY
[address] [place] [address], * [facility] (08/19/2024 3:25 PM EDT) Only the most recent of2 resultswithin the time period is included. Anatomical Region Laterality Modality Ultrasound 08/19/2024 3:09 PM EDT Narrative 08/19/2024 4:54 PM EDT PAT NAME: CAROLE GIRARD MED REC#: [id number] DA: [id number] PAT GEND: F PAT TYPE: E EXAM TRAVIS: [id number] REF PHYS ROB WHARTON Comparison Studies The [...] EFW (oz) 9 oz EFW by: Hadlock ([id number]) Extended Cav. septi pel. tr 4.7 mm Weapons And Tactics Instructor 3.8 mm CM 7.5 mm 84% Nicolaides [...] Heart / Thorax 3-vessel view: Appears normal 0-aavitp-jszpxcv view: Appears normal Stomach: Appears normal Kidneys: [...] in 4wks for growth. Coding ======= Description: 09113-36 Follow Up Integration Solution Architect: RT Annetta Hartmann , [facility] Physician: Jo Chappell MD Electronically signed by: Jo Chappell MD at: 16:54 Procedure Note Jo Chappell MD - 08/19/2024 PAT NAME: CAROLE GIRARD MED REC#: [id number] DA: [id number] PAT GEND: F PAT TYPE: E EXAM TRAVIS: [id number] REF PHYS ROB WHARTON Comparison Studies The findings of this study are compared to the prior ultrasound studydated 07/22/24 Patient Status Inpatient Indication ======== History of c/s x1. History of . Vaginal bleeding. Maternal Assessment Impooj824 cm Height (ft)5 ft Height (in)4 in Gsysdi59 kg Weight (lb)158 lb BMI27.31 kg/m Method [...] GA25 w + 1 d Assigned DUSTY:12/01/2024 [id number] d Biometry Standard BPD57.6 mm 23w 4d 5% Hadlock OFD81.6 mm 26w 4d 88% Jamal HC225.7 mm 24w 4d 13% Hadlock Cerebellum tr28.9 mm 25w 2d 62% Hill AC194.9 mm 24w 1d 15% Hadlock Femur44.9 mm 24w 6d 27% Hadlock Qhjizya74.3 mm 25w 3d 50% Jamal HC / AC1.16 RJQ914 g 24w 2d 16% Hadlock EFW (lb)1 lb EFW (oz)9 oz EFW by:Hadlock ([id number]) Extended Cav. septi pel. tr4.7 mm Vp3.8 mm CM7.5 mm 84% Nicolaides Head / Face / Neck Cephalic index0.71 <1% Nicolaides Extremities / Bony Struc FL / BPD0.78 FL / HC0.20 FL / AC0.23 Other Structures IUZ725 bpm General Evaluation Cardiac activity present. FHR [...] normal Heart / Thorax 3-vessel view:Appears normal 4-ecpgle-liefimb view:Appears normal Stomach:Appears normal Kidneys:Appears normal Bladder:Appears normal Gender:female Wants to know gender:yes Maternal Structures Uterus / Cervix Cervix:Visualized Approach:Transabdominal Cervical rwuupl16.9 mm Doppler Arterial Umbilical A PI1.01 32% [...] office in 4wks for growth. Coding ======= Description:38876-20 Follow Up Integration Solution Architect: RT Annetta Hartmann , [facility] Physician: Jo Chappell MD Electronically signed by: Jo Chappell MD at: 16:54 us Kt Fan DO [facility] US ORDERABLES Final Res ult * Urinalysis, Microscopic Only - Urine, Clean Catch (08/19/2024 3:02 PM EDT) Only the most recent of2 resultswithin the time period is included. RBC, UA 0-2 None Seen, 0-2 /HPF 08/19/2024 3:33 PM EDT [facility] LABOR[facility] WBC, UA 0-2 None Seen, 0-2 /HPF 08/19/2024 3:33 PM EDT [facility] Bacteria, UA None Seen None Seen /HPF 08/19/2024 3:33 PM EDT [facility] Squamous Epithelial Cells, UA 0-2 None Seen, 0-2 /HPF 08/19/2024 3:33 PM EDT [facility] Hyaline Casts, UA None Seen None Seen /LPF 08/19/2024 3:33 PM EDT [facility] Methodology Automated Microscopy 08/19/2024 3:33 PM EDT [facility] Urine Urine specimen obtained by clean catch procedure / Unknown Collection / Unknown 08/19/2024 3:02 PM EDT 08/19/2024 3:13 PM EDT us Kt Fan DO URINE ORDERABLES Final Resu lt [facility] LABORATORY
[address] [place] [id number], [place] [phone] * (ABNORMAL) Urinalysis With Microscopic If Indicated (No Culture) - Urine, Clean Catch (08/19/2024 3:02 PM EDT) Only the most recent of2 resultswithin the time period is included. Color, UA Yellow Yellow, Straw 08/19/2024 3:33 PM EDT [facility] Appearance, UA Clear Clear 08/19/2024 3:33 PM EDT [facility] pH, UA >=9.0(H) 5.0 - 8.0 08/19/2024 3:33 PM EDT [facility] Specific [place], UA 1.018 1.005 - 1.030 08/19/2024 3:33 PM EDT [facility] Glucose, UA Negative Negative 08/19/2024 3:33 PM EDT [facility] Ketones, UA 15 mg/dL (1+)(A) Negative 08/19/2024 3:33 PM EDT [facility] Bilirubin, UA Negative Negative 08/19/2024 3:33 PM EDT [facility] Blood, UA Negative Negative 08/19/2024 3:33 PM EDT [facility] Protein, UA 30 mg/dL (1+)(A) Negative 08/19/2024 3:33 PM EDT [facility] Leuk Esterase, UA Negative Negative 08/19/2024 3:33 PM EDT [facility] Nitrite, UA Negative Negative 08/19/2024 3:33 PM EDT [facility] Urobilinogen, UA 1.0 E.U./dL 0.2 - 1.0 E.U./dL 08/19/2024 3:33 PM EDT [facility] Urine Urine specimen obtained by clean catch procedure / Unknown Collection / Unknown 08/19/2024 3:02 PM EDT 08/19/2024 3:13 PM EDT Kt Fan DO URINE ORDERABLES Final Resu lt [facility] LABORATORY
[address] [place] [address], * (ABNORMAL) CBC Auto Differential (08/19/2024 3:02 PM EDT) WBC 9.19 3.40 - 10.80 10*3/mm3 08/19/2024 3:23 PM EDT [facility] RBC 3.58(L) 3.77 - 5.28 10*6/mm3 08/19/2024 3:23 PM EDT [facility] Hemoglobin 10.5(L) 12.0 - 15.9 g/dL 08/19/2024 3:23 PM EDT [facility] Hematocrit 31.4(L) 34.0 - 46.6 % 08/19/2024 3:23 PM EDT [facility] MCV 87.7 79.0 - 97.0 fL 08/19/2024 3:23 PM EDT [facility] MCH 29.3 26.6 - 33.0 pg 08/19/2024 3:23 PM EDT [facility] MCHC 33.4 31.5 - 35.7 g/dL 08/19/2024 3:23 PM EDT [facility] RDW 13.4 12.3 - 15.4 % 08/19/2024 3:23 PM EDT [facility] RDW-SD 42.4 37.0 - 54.0 fl 08/19/2024 3:23 PM EDT [facility] MPV 12.0 6.0 - 12.0 fL 08/19/2024 3:23 PM EDT [facility] Platelets 241 140 - 450 10*3/mm3 08/19/2024 3:23 PM EDT [facility] Neutrophil % 66.8 42.7 - 76.0 % 08/19/2024 3:23 PM EDT [facility] Lymphocyte % 24.4 19.6 - 45.3 % 08/19/2024 3:23 PM EDT [facility] Monocyte % 7.6 5.0 - 12.0 % 08/19/2024 3:23 PM EDT [facility] Eosinophil % 0.7 0.3 - 6.2 % 08/19/2024 3:23 PM EDT [facility] Basophil % 0.2 0.0 - 1.5 % 08/19/2024 3:23 PM EDT [facility] Immature Grans % 0.3 0.0 - 0.5 % 08/19/2024 3:23 PM EDT [facility] Neutrophils, Absolute 6.14 1.70 - 7.00 10*3/mm3 08/19/2024 3:23 PM EDT [facility] Lymphocytes, Absolute 2.24 0.70 - 3.10 10*3/mm3 08/19/2024 3:23 PM EDT [facility] Monocytes, Absolute 0.70 0.10 - 0.90 10*3/mm3 08/19/2024 3:23 PM EDT [facility] Eosinophils, Absolute 0.06 0.00 - 0.40 10*3/mm3 08/19/2024 3:23 PM EDT [facility] Basophils, Absolute 0.02 0.00 - 0.20 10*3/mm3 08/19/2024 3:23 PM T [facility] Immature Grans, Absolute 0.03 0.00 - 0.05 10*3/mm3 08/19/2024 3:23 PM EDT [facility] nRBC 0.0 0.0 - 0.2 /100 WBC 08/19/2024 3:23 PM [facility] LAB[facility] Blood Line / Unknown 08/19/2024 3: 02 PM EDT 08/19/2024 3:10 PM EDT Kt Fan DO LAB BLOOD ORDERABLES Final Result Performing Organization Address City/[facility]/ZIP Co de Phone Number [facility] LABORATORY
[address] [place] [address], [place] [phone] * Protein / Creatinine Ratio, Urine - Urine, Clean Catch (08/19/2024 3:02 PM EDT) Protein/Creati nine Ratio, Urine 126.1 0.0 - 200.0 mg/G Crea 08/20/2024 12:47 AM EDT [facility] Creatinine, Urine 148.3 mg/dL 08/20/2024 12:47 AM EDT [facility] Total Protein, Urine 18.7 mg/dL 08/20/2024 12:47 AM EDT [facility] Urine Urine specimen obtained by clean catch procedure / Unknown Collection / Unknown 08/19/2024 3:02 PM EDT 08/19/2024 4:26 PM EDT Kt Fan DO URINE ORDERABLES Final Resu lt [facility] LABORATORY
[address] [place] [address], [place] [phone] * Type & Screen (08/19/2024 3:02 PM EDT) ABO Type O 08/19/2024 3:51 PM EDT [facility] LABORATORY RH type Positive 08/19/2024 3:51 PM EDT [facility] LABORATORY Antibody Screen Negative 08/19/2024 3:51 PM EDT [facility] LABOR[facility] T&S Expiration Date 08/22/2024 11:59:59 PM 08/19/2024 3:51 PM EDT [facility] LABORATORY Blood Line / Unknown 08/19/2024 3: 02 PM EDT 08/19/2024 3:15 PM EDT us Kt Cavazos Mita SHAH BLOOD BANK TEST ORDERABLES Edited Result - Final Performing Organization Address [facility] de Phone Number [facility] LABORATORY
[address] [place] [address], [place] [phone] * (ABNORMAL) Magnesium (08/19/2024 3:02 PM EDT) Magnesium 1.5(L) 1.6 - 2.6 mg/dL 08/19/2024 5:12 PM EDT [facility] Blood Line / Unknown 08/19/2024 3: 02 PM EDT 08/19/2024 3:10 PM EDT us Kt Fan DO LAB BLOOD ORDERABLES Final Result Performing Organization Address [facility] Phone Number [facility] LABORATORY
[address] [place] [address], [place] [phone] * Lipase (08/19/2024 3:02 PM EDT) Lipase 13 13 - 60 U/L 08/19/2024 3:36 PM EDT [facility] Blood Line / Unknown 08/19/2024 3: 02 PM EDT 08/19/2024 3:10 PM EDT us Kt Cavazos Mita SHAH LAB BLOOD ORDERABLES Final Result Performing Organization Address [facility] Co de Phone Number [facility] LABORATORY
[address] [place] [address], [place] [phone] * Amylase (08/19/2024 3:02 PM EDT) Amylase 73 28 - 100 U/L 08/19/2024 3:36 PM EDT [facility] Blood Line / Unknown 08/19/2024 3: 02 PM EDT 08/19/2024 3:10 PM EDT us Kt Fan DO LAB BLOOD ORDERABLES Final Result [facility] LABORATORY
[address] [place] [address], * [place] Ob 14 + Weeks Single or First Gestation (07/05/2024 10:17 AM EDT) Anatomical Region Laterality Modality Body Ultrasound 07/05/2024 10:2 8 AM EDT Narrative 07/09/2024 7:02 PM EDT PAT NAME: CAROLE GIRARD MED REC#: [id number] DA: [id number] PAT GEND: F PAT TYPE: O EXAM TRAVIS: [id number] REF PHYS URIEL RUSS Farmworker Fruit Comments Still need heart views and PCI [...] EFW (oz) 9 oz EFW by: Hadlock ([id number]) Extended Weapons And Tactics Instructor 6.4 mm CM 3.3 mm 11% Nicolaides [...] Heart / Thorax 3-vessel view: not visualized 5-zbkkyb-iwyvcmo view: not visualized Diaphragm: Appears normal Diaphragm: [...] subsequent visit to complete the anatomic screening. Farmworker Fruit: Soo Harding RDMS Physician: Uriel Russ II, MD, FACOG Electronically signed by: Uriel Russ II, MD, FACOG at: 19:02 Procedure Note Uriel Russ MD - 07/09/2024 PAT NAME: CAROLE GIRARD MED REC#: [id number] DA: [id number] PAT GEND: F PAT TYPE: O EXAM TRAVIS: [id number] REF PHYS URIEL RUSS [employer] Comments Still need heart views and PCI N/L, Kidneys, Legs suboptimal Indication ======== anatomy survey Comparison Studies There are no relevant prior studies to which this study is beingcompared Method ======= [place] E6, Transabdominal ultrasound examination. View: Suboptimal view:limited by early gestational age ========= Love . Number of fetuses: 1 Dating ====== Method of dating:based on stated DUSTY GA by prior [id number] w + 5 d DUSTY by prior [...] 67% Hadlock HC / AC1.13 20% Hadlock [id number] g 18w 6d 56% Hadlock EFW (lb)0 lb EFW (oz)9 oz EFW by:Hadlock (MAF-SR-LY-FL) Extended Vp6.4 mm CM3.3 mm 11% Nicolaides Extremities / Bony Struc FL / BPD0.80 >99% Hadlock FL / HC0.20 98% Hadlock FL / AC0.23 89% Hadlock Other Structures [id number] bpm Anatomy Cranium:Appears normal Lateral ventricles:Appears normal Choroid plexus:Appears normal Midline falx:Appears normal Cavum septi pellucidi:Appears normal Cerebellum:Appears normal Cisterna magna:Appears normal Lips:suboptimal Profile:Appears normal Nose:suboptimal 4-chamber view:not visualized RVOT view:not visualized LVOT view:not visualized Heart / Thorax 3-vessel view:not visualized 2-skiogo-fiqwjrw view:not visualized Diaphragm:Appears normal Diaphragm:Intact Cord insertion:Appears [...] Structures Uterus / Cervix Uterus:Visualized Cervix:Visualized Cervical rbzkxu49.6 mm Ovaries / Tubes / Adnexa Rt [...] a subsequent visit tocomplete the anatomic screening. Farmworker Fruit: Soo Harding RDMS Physician: Uriel Russ II, MD, FACOG Electronically signed by: Uriel Russ II, MD, FACOG at: 9:02 us Uriel Russ MD [facility] US ORDERABLES Final Result * Urine Culture [...] / Unknown 07/05/2024 07/05/2024 Comment:Urine Release to [facility] i Narrative [facility] - 07/07/2024 3:35 AM EDT Performed at: [address] [place] [id number] Front Desk Coordinator: Michael Martinez PhD, Phone: [phone] us Kelly Delgado APRN MICROBIOLOGY - GENERAL ORDER FRANCO Final Result [facility] [address] [place] [address], [facility] [address] [place] [address], * Tryptase (06/25/2024 4:34 PM EDT) Tryptase 6.1 2.2 - 13.2 ug/L [facility] Blood 06/25/2024 4:34 PM EDT 06/25/2024 Narrative [facility] (AMBULATORY) - 06/28/2024 9:10 AM EDT Performed at: 01 - [address] [id number] Front Desk Coordinator: Fang Yu MD, Phone: [phone] Uriel Russ MD LAB BLOOD ORDERABLES Final Resu lt [facility] [address] [place] [address], [facility] [address] [place] [address], * Vitamin D,25-Hydroxy (06/25/2024 4:34 PM EDT) 25 Hydroxy, Vitamin D 33.7 30.0 - 100.0 ng/mL [facility] Comment: Vitamin D deficiency has been defined by the [place] of Medicine and an Endocrine Society practice guideline as a level of serum 25-OH vitamin D less than 20 ng/mL (1,2). The Endocrine Society went on to further define vitamin D insufficiency as a level between 21 and 29 ng/mL (2). 1. IOM ([place] of Medicine). 2010. Dietary reference intakes for calcium and D. [place]: The National Academies Press. 2. Halle MF, [place] MEHTA, Wade MITCHELL, et al. Evaluation, treatment, and prevention of vitamin D deficiency: an Endocrine Society clinical practice guideline. JCEM. 2010; 96(7):1911-30. Blood 06/25/2024 4:34 PM EDT 06/25/2024 Narrative [facility] ([facility]) - 06/26/2024 7:37 AM EDT Performed at: [address] [place] [id number] Front Desk Coordinator: Michael Martinez PhD, Phone: [phone] us Uriel Russ MD LAB BLOOD ORDERABLES Final Resu lt Performing Organization Address [facility] Co de Phone Number [facility] [address] [place] [address], [facility] [address] [place] [address], * TSH (06/25/2024 4:34 PM EDT) TSH 0.593 0.450 - 4.500 uIU/mL [facility] Blood 06/25/2024 4:34 PM EDT 06/25/2024 Narrative [facility] (AMBULATORY) - 06/26/2024 7:37 AM EDT Performed at: [address] [id number] Front Desk Coordinator: Michael Martinez PhD, Phone: [phone] us Uriel Russ MD LAB BLOOD ORDERABLES Final Resu lt Performing Organization Address [facility] de Phone Number [facility] [address] [place] [address], [facility] [address] [place] [address], * T4, Free (06/25/2024 4:34 PM EDT) Free T4 1.09 0.82 - 1.77 ng/dL [facility] Blood 06/25/2024 4:34 PM EDT 06/25/2024 Narrative [facility] (AMBULATORY) - 06/26/2024 7:37 AM EDT Performed at: 01 - [facility] [address] [place], [place] [id number] Front Desk Coordinator: Michael Martinez PhD, Phone: [phone] us Uriel Russ MD LAB BLOOD ORDERABLES Final Resu lt [facility] [address] [place] [address], [place] [phone] [facility] [address] [place] [address], * (ABNORMAL) Hemoglobin A1c (06/25/2024 4:34 PM EDT) Hemoglobin A1C 4.7(L) 4.8 - 5.6 % [facility] Comment: Prediabetes: 5.7 - 6.4 Diabetes: >6.4 Glycemic control for adults with diabetes: <7.0 Blood 06/25/2024 4:34 PM EDT 06/25/2024 Narrative [facility] (AMBULATORY) - 06/26/2024 4:35 AM EDT Performed at: - [facility] [address] [place], [place] [id number] Front Desk Coordinator: Michael Martinez PhD, Phone: [phone] us Uriel Russ MD LAB BLOOD ORDERABLES Final Resu lt Performing Organization Address City/[facility]/ZIP Co de Phone Number [facility] [address] [place] [address], [place] [phone] [facility] [address] [place] [address], [place] [phone] * (ABNORMAL) Lipid Panel (06/25/2024 4:34 PM EDT) Total Cholesterol 203(H) 100 - 199 mg/dL [facility] Triglycerides 125 0 - 149 mg/dL [facility] HDL Cholesterol 52 >39 mg/dL [facility] VLDL Cholesterol Rom 22 5 - 40 mg/dL [facility] LDL Chol Calc (NIH) 129(H) 0 - 99 mg/dL [facility] Blood 06/25/2024 4:34 PM EDT 06/25/2024 Narrative [facility] (AMBULATORY) - 06/26/2024 6:36 AM EDT Performed at: 01 - [facility] [address] [facility] [place], [place] [id number] Front Desk Coordinator: Michael Martinez PhD, Phone: [phone] us Uriel Russ MD LAB BLOOD ORDERABLES Final Resu lt [facility] (AMBULATORY) [address] [place] [address], [facility] [address] [place] [address], * US Ob Limited 1 + Fetuses (06/25/2024 3:10 PM EDT) Anatomical Region Laterality Modality Body Ultrasound 06/25/2024 3:54 PM EDT Narrative 06/26/2024 1:34 PM EDT PAT NAME: CAROLE GIRARD MED REC#: [id number] DA: [id number] PAT GEND: F PAT TYPE: O EXAM TRAVIS: [id number] REF PHYS URIEL RUSS Indication ======== Heart [...] clinically indicated for the condition being monitored. Farmworker Fruit: RT Annetta Bruno, [facility] Physician: Uriel Russ II, MD, FACOG Electronically signed by: Uriel Russ II, MD, FACOG at: 13:34 Procedure Note Uriel Russ MD - 06/26/2024 PAT NAME: CAROLE GIRARD MED REC#: [id number] DA: 1990 PAT GEND: F PAT TYPE: O EXAM TRAVIS: [id number] REF PHYS URIEL RUSS Indication ======== Heart Tones Comparison Studies The findings of this study are compared to the prior ultrasound studydated 05/27/2024 Method ======= Transabdominal ultrasound examination. View: Suboptimal view: limited byfetal position ========= Love . Number of fetuses: 1 Dating ====== Method of dating:based on stated DUSTY GA by prior [id number] w + 2 d DUSTY by prior assessment:12/01/2024 Previous dating:based on stated DUSTY, selected on 05/27/2024 Agreed DUSTY of previous datin12/01/2024 Assigned:based on stated DUSTY, selected on 06/25/2024 Assigned [id number] w + 2 d Assigned DUSTY:12/01/2024 [id number] d General Evaluation Cardiac activity present. FHR 150 bpm. movements visualized. Presentation variable. Placenta Placental site: anterior. Amniotic fluid Amount of AF: normal. MVP 2.7 cm. Maternal Structures Uterus / Cervix Cervical katkds54.1 mm Impression heart tones 150. 17 weeks 2 days. EDC 12/01/2024. Single fetus.Cervical length 33 mm. Recommendation Follow-up scan as clinically indicated for the condition beingmonitored. Farmworker Fruit: RT Annetta Bruno, [facility] Physician: Uriel Russ II, MD, FACOG Electronically signed by: Uriel Russ II, MD, FACOG at: :34 Uriel Russ MD [facility] US ORDERABLES Final Result * Hepatitis C Antibody (04/12/2024) Hep C Virus Ab negative Blood Historical Provider LAB BLOOD ORDERABLES Lena l Result from Last 3 Months or Most Recently Relevant to Health Maintenance Insurance [employer] [facility] Care Teams Complaints Coordinator Relationship Specialty Start Date End Date Norma Friedman APRN [address] [place] [address] [place] [address] PCP - General Family Medicine 05/14/24
--- OUTSIDE RECORDS SUMMARY | 2024-09-15 15:10 | XMS_ITS | Encounter Summary ---
Author Organization [employer] ([place], [place], [place], [place]) Address [address] [place] [address] Care Team Providers Care Hospitalist Name Role Phone Unavailable Primary Care Provider Unavailabl e Encounter Details Date Type Department Care Team (Late st Contact Info) Description 07/17/2019 Transcribed Document [facility] Family Medicine [address] [place] [address] ProviderEleno MD [address] [place], [place] [address] Social History Tobacco Use Types Packs/Day Years [...] On: 07/17/2019 19:17 EDT by KARLENE MCKINLEY town justice Process Patient Disposition : AMA/Elope/LWBS KARLENE MCKINLEY [...]
--- OUTSIDE RECORDS SUMMARY | 2024-09-15 15:10 | XMS_ITS ---
Author Organization [facility] Address [address] [place] [address] Care Team Providers Care Cream Dipper Name Role Phone Norma Friedman APRN Primary Care Provider [phone] Motherhood Connection Status:Engaged (Active) Start date:05/23/2024 Enrollment date:05/23/2024 Case Team Name Relationship Phone Bindu Castellon RN Nurse Navigator Christy Zabala RN(Responsible Staff) Nurse Navig ator Continued Care and Services Coordination
--- OUTSIDE RECORDS SUMMARY | 2024-09-15 15:10 | XMS_ITS | Encounter Summary ---
[facility] Organization [facility] Address [address] [place] [address] Care Team Providers Care Dairy Processing Equipment Operator Name Role Phone Elder Norma FERNÁNDEZ Primary Care Provider + [phone] Encounter Details Date Type Department Care Team (Latest Contact Info) Description 08/19/2024 Travel Social History Tobacco Use Types Packs/Day Years Used Date Smoking Tobacco: Never Smokeless Tobacco: Never Alcohol Use Standard Drinks/Week Comments Never 0 (1 standard drink = 0.6 oz pur e alcohol) [facility] Utilities Answer Date Recorded In the past 12 months has [employer] electric, gas, oil, or water company threatened [...] and heating? Not hard at all 05/28/2024 [facility] [place] of Occupat ional Health - Occupational Stress [...] 2:34 PM EDT Nneka Cross RN * Shepherd Suicide Severity Rating Scale (Screener/Recent Self-Report) Question Answer Date of Assessment Author 6. Suicidal Behavior (Lifetime) No 2:34 PM EDT Nneka Cross RN documented as of this encounter Plan of Treatment Upcoming Encounters Date Type Department Care Team (Late st Contact Info) Description 01/20/2025 3:30 PM EST Office Visit [facility] GASTROENTEROLOGY [address] [address] Robbin Escalante MD [address] [address] documented as of this encounter Visit Diagnoses Not on filedocumented in this encounter Additional Health Concerns Assessment Noted Time PHQ-2 Depression Total Score: 2 05/28/19 25 4:39 PM EDT documented as of this encounter Care Teams Dairy Processing Equipment Operator Relationship Specialty Start Date End Date Norma Friedman APRN [address] [place] [address] [place] [address] PCP - General Family Medicine 05/14/24 documented as of this encounter
--- OUTSIDE RECORDS SUMMARY | 2024-09-15 15:10 | XMS_ITS | Encounter Summary ---
Author Organization [facility] Address [address] [place] [address] Care Team Providers Care Art Glass Setter Name Role Phone Elder Norma FERNÁNDEZ Primary Care Provider + [phone] Encounter Details Date Type Department Care Team (Latest Contact Info) Description 08/29/2024 Travel Social History Tobacco Use Types Packs/Day Years Used Date Smoking Tobacco: Never Smokeless Tobacco: Never Alcohol Use Standard Drinks/Week Comments Never 0 (1 standard drink = 0.6 oz pur e alcohol) [facility] Utilities Answer Date Recorded In the past 12 months has [employer] electric, gas, oil, or water company threatened [...] and heating? Not hard at all 05/28/2024 [facility] [place] of Occupat ional Health - Occupational Stress [...] Visit [facility] GASTROENTEROLOGY [address] [facility] [address] [place] [address] Robbin Escalante MD [address] [facility] [address] [place] [address] documented as of this encounter Visit Diagnoses Not on filedocumented in this encounter Additional Health Concerns Assessment Noted Time PHQ-2 Depression Total Score: 2 05/28/19 25 4:39 PM EDT documented as of this encounter Care Teams Art Glass Setter Relationship Specialty Start Date End Date Norma Friedman APRN [address] [place] [address] [place] [address] PCP - General Family Medicine 05/14/24 documented as of this encounter
--- OUTSIDE RECORDS SUMMARY | 2024-09-15 15:10 | XMS_ITS | Encounter Summary ---
[facility] Organization [facility] Address [address] [place] [id number] Care Team Providers Care Door Repairman Name Role Phone Ivyashlyn Norma FERNÁNDEZ Primary Care Provider + [phone] Encounter Details Date Type Department Care Team (Late st Contact Info) Description 08/28/2024 Telephone [facility] OBGYN [address] [address] Staci Jain MD [address] [place] [phone] Social History Tobacco Use Types Packs/Day Years Used Date Smoking Tobacco: Never Smokeless Tobacco: Never Alcohol Use Standard Drinks/Week Comments Never 0 (1 standard drink = 0.6 oz pur e alcohol) [facility] Utilities Answer Date Recorded In the past 12 months has [employer], gas, oil, or water [employer] threatened to shut off services in your [...] GED or equivalent No 05/28/2024 Preferred Language Azeri 05/28/2024 PHQ-2 Answer Date Recorded Patient Health [...] sit with a family member admitted to [facility] today and does not know if she can make it back for labs (BMP). She does have an appt in [facility] at 10 am tomorrow. Advisedthat it [...] states she was supposed to come into [place] office today to have labs drawn however [facility]is [facility] is wondering if she could just have labs drawn there? documented in this encounter Plan of Treatment Upcoming Encounters Date Type Department Care Team (Late st Contact Info) Description 01/20/2025 3:30 PM EST Office Visit [facility] GASTROENTEROLOGY [address] [facility] [address] [place] [address] Robbin Escalante MD [address] [facility] [address] [place] [address] documented as of this encounter Visit Diagnoses Not on filedocumented in this encounter Additional Health Concerns Assessment Noted Time PHQ-2 Depression Total Score: 2 05/28/19 25 4:39 PM EDT documented as of this encounter Care Teams Door Repairman Relationship Specialty Start Date End Date Norma Friedman APRN [address] [place] [address] [place] [address] PCP - General Family Medicine 05/14/24 documented as of this encounter
--- OUTSIDE RECORDS SUMMARY | 2024-09-15 15:10 | XMS_ITS | Clinical Summary ---
Author Organization Healthcare Address [address] [place] [address] Care Team Providers Care Elevator Mechanic Apprentice Name Role Phone Unavailable Primary Care Provider Unavailabl e Encounters Date Type Department Care Team Description 09/14/2024 Telephone [facility] Obstetrics & Gynecology [address] [place] [address] Susi Wren MD 07/22/2024 [facility] Practice [address] [place] [address] Staci Jain MD History of proteinuria syndrome (Primary Dx); care, subsequent , second trimester 07/22/2024 [facility] [address] [place] [address] Sandy Cardenas MD from Last 3 Months [...] Date Last Done Comments [facility]-Depression Screening 1991 [facility]-/Child/Adol SDOH Screenings 1991 [facility]-Varicella Vaccines (1 of 2 - 13+ 2-dose series) 2004 [facility]- SDOH Screenings 2009 [facility]-Adult SDOH Screenings 2009 [facility]-Hepatitis B Vaccines (1 of 3 - 19+ 3-dose series) 2010 [facility]-Pap Smear 2012 [facility]-Cervical Cancer Screening 2021 [facility]-HPV/Cotest 2021 [facility]-VYNEP-40 Vaccine ( season) 2023 05/04/2022 [facility]-Influenza Vaccine (#1) 2024 [...]
--- OUTSIDE RECORDS SUMMARY | 2024-09-15 15:10 | XMS_ITS | Encounter Summary ---
[facility] Address [address] [place] [phone] Care Team Providers Care Pack Master Name Role Phone IvyKade goldbergjoseseven JOLENE Primary Care Provider + [phone] Encounter Details Date Type Department Care Team (Late st Contact Info) Description 07/25/2024 Patient Outreach [facility] DELIVERY [address] [place] [phone] Christy Zabala, RN Social History Tobacco Use [...] hard at all 05/28/2024 [facility] [place] of Occupat ional Health - Occupational Stress [...] [facility] GASTROENTEROLOGY [address] [address] Robbin Escalante MD [address] [place] [address] [place] [address] documented as of this encounter Visit Diagnoses Not on filedocumented in this encounter Additional Health Concerns Assessment Noted Time PHQ-2 Depression Total Score: 2 05/28/19 25 4:39 PM EDT documented as of this encounter Care Teams Pack Master Relationship Specialty Start Date End Date Norma Friedman APRN [address] [place] [address] [place] [address] PCP - General Family Medicine 05/14/24 documented as of this encounter
--- OUTSIDE RECORDS SUMMARY | 2024-09-15 15:10 | XMS_ITS | Referral Summary ---
Author Organization [employer] ([place], [place], [place], [place]) Address [address] [place] [address] Care Team Providers Care Compressor Service Technician Name Role Phone Unavailable Primary Care [...]
--- OUTSIDE RECORDS SUMMARY | 2024-09-15 15:10 | XMS_ITS | Clinical Summary ---
Author Organization [facility] Address [address] [place] [address] Care Team Providers Care Rubber Stamps And Dies Supervisor Name Role Phone Unavailable Primary Care Provider Unavailabl e Source Comments [facility] is fully rolled out with thefollowing exceptions:General Clinical Research [facility] Social History Tobacco Use Types Packs/Day [...]
--- OUTSIDE RECORDS SUMMARY | 2024-09-15 15:11 | XMS_ITS | Encounter Summary ---
Author Organization Healthcare Address [address] [place] [address] Care Team Providers Care Paragliding Instructor Name Role Phone Unavailable Primary Care Provider Unavailabl e Encounter Details Date Type Department Care Team (Late st Contact Info) Description 07/22/2024 [facility] [address] [place] [address] Sandy Cardenas MD [address] [facility] [address] [place] [phone] Social History Tobacco Use Types Packs/Day Years [...]
--- OUTSIDE RECORDS SUMMARY | 2024-09-15 15:11 | XMS_ITS | Encounter Summary ---
Author Organization [facility] Address [address] [place] [address] Care Team Providers Care Agricultural Appraiser Name Role Phone Ivyashlyn Norma FERNÁNDEZ Primary Care Provider + [phone] Encounter Details Date Type Department Care Team (Late st Contact Info) Description 09/02/2024 Telephone [facility] OBGYN [address] [address] Staci Jain MD [address] [place] [phone] Social History Tobacco Use Types Packs/Day Years Used Date Smoking Tobacco: Never Smokeless Tobacco: Never Alcohol Use Standard Drinks/Week Comments Never 0 (1 standard drink = 0.6 oz pur e alcohol) [facility] Utilities Answer Date Recorded In the past 12 months has [employer], [employer], oil, or water [employer] threatened to shut off services in your [...] all 05/28/2024 [facility] of Occupat ional Health - Occupational [...] She has decided to transfer care to [facility] as it iscloser to her like 15 min away. She wants you (Dr. Jain) to know this has nothing to you but rather the nurses and council on aging director doctor did not relay the labs to you in a faster fashion. She said you can call her if you want and she is not angry. Dr. Jain was notified. * Telephone Encounter - Frederick Gruber RN - 09/02/2024 3:10 PM EDT [employer] message sent to the pt regarding outpt infusion apt tomorrow at [place]. documented in this encounter Plan of Treatment Upcoming Encounters Date Type Department Care Team (Late st Contact Info) Description 01/20/2025 3:30 PM EST Office Visit [facility] GASTROENTEROLOGY [address] [place] [address] [place] [address] Robbin Escalante MD [address] [facility] [address] [place] [address] documented as of this encounter Visit Diagnoses Not on filedocumented in this encounter Additional Health Concerns Assessment Noted Time PHQ-2 Depression Total Score: 2 05/28/19 25 4:39 PM EDT documented as of this encounter Care Teams Agricultural Appraiser Relationship Specialty Start Date End Date Norma Friedman APRN [address] [place] [address] [place] [address] PCP - General Family Medicine 05/14/24 documented as of this encounter
--- OUTSIDE RECORDS SUMMARY | 2024-09-15 15:11 | XMS_ITS | Encounter Summary ---
Author Organization Healthcare Address [address] [place] [phone] Care Team Providers Care Battery Loader Name Role Phone Unavailable Primary Care Provider Unavailabl e Reason for Referral * Consultation (Routine) - Authorized Specialty Diagnoses / Procedures Referred By Contac t Referred To Contact Nephrology Diagnoses Hypokalemia Liborio Weller MD [address] [place] [address] Phone: tel: fax: [facility] Nephrology, Bone & Mineral Metabolism [address], [address] [place] [address] Phone: tel: fax: Referral ID Status Reason Start Date Expiration Date Visits Requested Visits Authorized [id number] Authorized Specialty Services Required 09/14/2024 03/16/2026 1 1 Scheduling Instructions Severe hypokalemia in the setting of Encounter Details Date Type Department Care Team (Late st Contact Info) Description 09/14/2024 Telephone [facility] Obstetrics & Gynecology [address] [place] [address] Susi Wren MD [address] [place] [address] Social History Tobacco Use Types Packs/Day Years [...] encounter Miscellaneous Notes * Telephone Encounter - Susi Wren MD - 09/14/2024 12:55 PM EDT Patient called Labor and Delivery number to inquire whether or not she should present for further work-up of severe hypokalemia. Patient clarified that her outpatient OB was wanting her to have a direct consultation with Dr. Weller. As she had just been discharged from the hospital and had had an outpatient workup with Nephrology at [facility] that was negative, she was not amenable to presenting for admission for further work-up. As such, discussed the possibility of trying to work patient into Dr. Weller's clinic schedule ROGER. Message sent to clinic staff. Susi Wren MD PGY3 Obstetrics and Gynecology documented in this encounter Plan of Treatment Scheduled Referrals Name Type Priority Associated Diagnoses Order Schedule Ambulatory referral to Nephrology Clinic Outpatient Referral Routine Hypokalemia 1 Occurrences starting 09/14/2024 until 03/18/2026 documented as of this encounter Visit Diagnoses Diagnosis Hypokalemia- Primary Hypopotassemia documented in this encounter
--- OUTSIDE RECORDS SUMMARY | 2024-09-15 15:11 | XMS_ITS | Encounter Summary ---
[facility] Address [address] [place] [id number] Care Team Providers Care Damage Prevention Coordinator Name Role Phone IvyKade goldbergjoseseven JOLENE Primary Care Provider + [phone] Encounter Details Date Type Department Care Team (Late st Contact Info) Description 09/03/2024 Results Follow-Up [facility] [address] [place] [address] Staci Jain MD 1700 [facility] [address] [place] [address] Social History Tobacco Use Types Packs/Day Years Used Date Smoking Tobacco: Never Smokeless Tobacco: Never Alcohol Use Standard Drinks/Week Comments Never 0 (1 standard drink = 0.6 oz pur e alcohol) [facility] Utilities Answer Date Recorded In the past 12 months has [employer], gas, oil, or water [employer] threatened to shut off services in [...] Office Visit [facility] [address] [address] Robbin Escalante MD [address] [address] documented as of this encounter Visit Diagnoses Not on filedocumented in this encounter Additional Health Concerns Assessment Noted Time PHQ-2 Depression Total Score: 2 05/28/19 4:39 PM EDT documented as of this encounter Care Teams Damage Prevention Coordinator Relationship Specialty Start Date End Date Norma Friedman APRN [address] [place] [place] [id number] PCP - General Family Medicine 05/14/24 documented as of this encounter
--- OUTSIDE RECORDS SUMMARY | 2024-09-15 15:11 | XMS_ITS | Encounter Summary ---
[facility] [address] [place] [id number] Care Team Providers Care Paid Search Analyst Name Role Phone Ivyashlyn Valentinoseven JOLENE Primary Care Provider + [phone] Encounter Details Date Type Department Care Team (Late st Contact Info) Description 06/26/2024 Results Follow-Up [facility] [address] [address] Koby Roberts MD 1700 [place] [address] Social History Tobacco Use Types Packs/Day Years Used Date Smoking Tobacco: Never Smokeless Tobacco: Never Alcohol Use Standard Drinks/Week Comments Never 0 (1 standard drink = 0.6 oz pur e alcohol) [facility] Utilities Answer Date Recorded In the past 12 months has [employer], gas, oil, or water [employer] threatened to shut off services in your [...] and heating? Not hard at all 05/28/2024 [facility] [place] of Occupat ional Health - Occupational Stress [...] Visit [facility] [address] [facility] [address] Robbin Escalante MD [address] [address] documented as of this encounter Visit Diagnoses Not on filedocumented in this encounter Additional Health Concerns Assessment Noted Time PHQ-2 Depression Total Score: 2 05/28/19 25 4:39 PM EDT documented as of this encounter Care Teams Paid Search Analyst Relationship Specialty Start Date End Date Norma Friedman APRN [address] [place] [id number] PCP - General Family Medicine 05/14/24 documented as of this encounter
--- OUTSIDE RECORDS SUMMARY | 2024-09-15 15:11 | XMS_ITS | Encounter Summary ---
[facility] Address [address] [place] [address] Care Team Providers Care Edger Machine Setter Name Role Phone Elder Norma FERNÁNDEZ Primary Care Provider + [phone] Encounter Details Date Type Department Care Team (Latest Contact Info) Description 07/22/2024 Travel Social History Tobacco Use Types Packs/Day Years Used Date Smoking Tobacco: Never Smokeless Tobacco: Never Alcohol Use Standard Drinks/Week Comments Never 0 (1 standard drink = 0.6 oz pur e alcohol) [facility] Utilities Answer Date Recorded In the past 12 months has [employer], gas, oil, or water company threatened [...] Not hard at all 05/28/2024 [facility] [place] of Occupat ional Health - Occupational Stress [...] GED or equivalent No 05/28/2024 Preferred Language Kiswahili 05/28/2024 PHQ-2 Answer Date Recorded Patient Health [...] Visit [facility] [address]20 [facility] [address] [place] [id number] Robbin Escalante MD [address] [facility] [address] [place] [address] documented as of this encounter Visit Diagnoses Not on filedocumented in this encounter Additional Health Concerns Assessment Noted Time PHQ-2 Depression Total Score: 2 05/28/19 25 4:39 PM EDT documented as of this encounter Care Teams Edger Machine Setter Relationship Specialty Start Date End Date Norma Friedman APRN [address] [place] [id number] PCP - General Family Medicine 05/14/24 documented as of this encounter
[2024-09-15 15:17] VITALS: BMI 27.4
--- NOTE | 2024-09-15 15:43 | ECG_ITS ---
APPROVED REPORT Exam: Resting ECG HR:90 bpm ECG Measurements Heart Rate 90 AXES [place] 143 P 50 QRSd 82 QRS 41 QT 339 T 31 QTc 386 Conclusion SINUS RHYTHM LOW QRS VOLTAGE IN PRECORDIAL LEADS [QRS DEFLECTION < 1.0 mV IN CHEST LEADS] BORDERLINE ECG UNCONFIRMED REPORT Electronically signed by : Martín Gonsales MD 09/16/2024 08:55:16
[2024-09-15 15:45] VITALS: BP 120/70; PULSE 112; RESP 20; TEMP 36.7; O2SAT 100; BMI 27.3
[2024-09-15 16:07] LABS: Albumin Level 3.6 g/dl (3.5-5.0); Chloride 100 mmol/L (98-107); Potassium 3.2 mmoL/L (3.5-5.1); Sodium 135 mmol/L (136-145)
[2024-09-15 16:09] LABS: Blood Urea Nitrogen 5 mg/dl (7-17); Creatinine Clearance Estimated 183 mL/min (50-200); Creatinine,Serum 0.50 mg/dl (0.52-1.04); Estimated Glomerular Filt Rate 142 ml/min (>60); GFR (African American) 172 ML/MIN (>60)
[2024-09-15 16:10] LABS: Alanine Aminotransferase 14 U/L (12-78); Albumin/Globulin Ratio 1.1 (1.1-1.8); Alkaline Phosphatase 85 U/L (38-126); Anion Gap 12.2 mEq/L (5-15); Aspartate Amino Transferase 27 U/L (14-36); Bilirubin,Total 0.7 mg/dl (0.2-1.3); Calcium 8.7 mg/dl (8.4-10.2); Carbon Dioxide 26 mmol/L (22.0-30.0); Globulin 3.4 g/dL (1.3-3.2); Glucose 86 mg/dl (74-100); Magnesium 1.4 mg/dl (1.6-2.3); Total Protein,Serum 7.0 g/dl (6.3-8.2)
[2024-09-15 17:05] LABS: Microscopic, Urine URINE MICROSCOPIC (MICROSCOPIC)
[2024-09-15 17:09] LABS: Bilirubin,Urine Negative (Negative); Color,Urine YELLOW (Yellow); Glucose,Urine (UA) Negative (Negative); Ketones,Urine 1+ (Negative); Leukocyte Esterase,Urine Negative (Negative); PH,Urine 8.5 (5.0-8.5); Protein,Urine 2+ (Negative); Specific Gravity, Urine 1.010 (1.005-1.030); Urobilinogen,Urine 0.2 EU/dl (0.2)
[2024-09-15] MEDS: MAGNESIUM SULFATE IN WATER 2 GM/50 ML PIGGYBACK IV ×3 (17:31→19:17)
[2024-09-15] MEDS: FAMOTIDINE 20MG TABLET 20 MG PO ×2 (17:35→21:42)
[2024-09-15 17:46] LABS: Hematocrit 30.7 % (37.0-47.0); Hemoglobin 10.1 g/dL (12.2-16.2); Immature Granulocytes % 0.3 %; Mean Corpuscular HGB Conc 32.9 g/dL (31.8-35.4); Mean Corpuscular Hemoglobin 29.5 pg (27.0-31.2); Mean Corpuscular Volume 89.8 fl (81-99); Nucleated Red Blood Cells % 0 %; Platelet Count 254 K/mm3 (142-424); Red Blood Count 3.42 M/mm3 (4.20-5.40); Red Cell Distribution Width-SD 47.9 fL; White Blood Count 10.2 K/mm3 (4.8-10.8)
[2024-09-15 17:51] LABS: Amorphous Sediment,Urine 2+ /lpf; Squamous Epithelial Cell,Urine Occasional #/hpf (0-5)
[2024-09-15] MEDS: CLINDAMYCIN 150MG CAPSULE 300 MG PO ×2 (18:04→21:00)
[2024-09-15 19:24] VITALS: BP 109/58; PULSE 81; RESP 16; TEMP 36.7; O2SAT 100
[2024-09-15 20:32] VITALS: PULSE 84
[2024-09-15] MEDS: ONDANSETRON 4MG/2ML VIAL 4 MG IV (21:42)
[2024-09-16 01:43] VITALS: PULSE 124
[2024-09-16 04:18] VITALS: PULSE 70
[2024-09-16 04:33] LABS: Albumin Level 3.1 g/dl (3.5-5.0); Chloride 100 mmol/L (98-107); Potassium 3.5 mmoL/L (3.5-5.1); Sodium 133 mmol/L (136-145)
[2024-09-16 04:35] LABS: Magnesium 2.0 mg/dl (1.6-2.3)
[2024-09-16 04:36] LABS: Alanine Aminotransferase 12 U/L (12-78); Albumin/Globulin Ratio 1.0 (1.1-1.8); Alkaline Phosphatase 76 U/L (38-126); Anion Gap 6.5 mEq/L (5-15); Aspartate Amino Transferase 25 U/L (14-36); Bilirubin,Total 0.5 mg/dl (0.2-1.3); Blood Urea Nitrogen 4 mg/dl (7-17); Calcium 8.7 mg/dl (8.4-10.2); Carbon Dioxide 30 mmol/L (22.0-30.0); Creatinine Clearance Estimated 183 mL/min (50-200); Creatinine,Serum 0.50 mg/dl (0.52-1.04); Estimated Glomerular Filt Rate 142 ml/min (>60); GFR (African American) 172 ML/MIN (>60); Globulin 3.0 g/dL (1.3-3.2); Glucose 82 mg/dl (74-100); Total Protein,Serum 6.1 g/dl (6.3-8.2)
[2024-09-16 04:41] VITALS: BP 93/59; PULSE 85; RESP 16; TEMP 36.8; O2SAT 98
[2024-09-16] MEDS: CLINDAMYCIN 150MG CAPSULE 300 MG PO ×2 (08:33→13:15)
[2024-09-16] MEDS: FAMOTIDINE 20MG TABLET 20 MG PO (08:33)
[2024-09-16 08:45] VITALS: BP 94/53; PULSE 80; RESP 16; TEMP 36.8; O2SAT 100
--- NOTE | 2024-09-16 10:16 | EXP.HP ---
History of Present Illness *Admission Date: 09/15/24 *Reason for visit:: Hypokalemia, hypomagnesemia *History of present illness: She is a 34-year-old 9 para 5 aborta 3 who is 29+ weeks gestational age. She has what seems like -induced Bartter syndrome. She has had this in her previous pregnancies. This however she has had increased spillage of potassium requiring every other day infusions. She arrived with her potassium being somewhat low at 3.2 her magnesium was also low. As result that she was admitted and has received 3 rounds of both potassium and magnesium. We will give her another 3 rounds of potassium today. She has had previous workups by nephrology in this and in other pregnancies and no cause for her hypokalemia has been determined. It suspected that this is just a -induced Bartter's. [facility] Disclaimer: The information contained in this section may have been updated after the patient was seen, as this information can be updated by other users. Medical History Vaginal bleeding in Nausea vomiting and diarrhea Normal esophagogastroduodenoscopy (EGD) Vaginal discharge UTI (urinary tract infection) UTI (urinary tract infection) Subchorionic hematoma Patient left without being seen Vaginal spotting Bilateral ovarian cysts Vulvar lesion Lower abdominal pain Traumatic iritis Corneal abrasion Subconjunctival hemorrhage Bright red blood per rectum Hematemesis Obstipation Irregular bowel habits Dyspepsia Generalized abdominal pain Early satiety Bloating Back pain Abdominal pain Low back ache Acute viral syndrome Gastroenteritis Dehydration Hypocalcemia Missed GERD (gastroesophageal reflux disease) Grand multipara History of recurrent miscarriages History of miscarriage, currently History of anemia Urinary tract infection History of gastroesophageal reflux (GERD) Endometriosis Dysmenorrhea Menorrhagia History of miscarriage History of fainting History of heavy periods Surgical History History of tympanostomy tube placement History of section Hx of section Family History Family history of diabetes mellitus type II Family history of myocardial infarction Social History Smoking Status: Never smoker alcohol intake: never substance use type: denies use current occupational status: unemployed Travel in the last 8 weeks?: None household members: spouse housing: house 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 Have you lived/traveled outside US in past 30 days?: No Contact w/someone who lives/traveled outside US past 30 days?: No Exposure to someone with infectious disease in past 14 days?: No Do you have a fever (greater than 100.4 F or 38 C)?: No Have you tested positive for COVID-19?: No Exposed to someone with COVID-19 in past 14 days?: No Do you have a sore throat?: No Do you have a cough?: No Do you have any weakness?: No Do you have any diarrhea?: No Are you experiencing any unusual bleeding?: No Do you have any muscle aches/pain?: No Do you have any abdominal pain?: No Are you experiencing loss of taste or smell?: No Other Medical History Have you received the Flu Vaccine for this season: No Have you received the Pneumonia Vaccine: No Review of Systems Review of Systems Review of systems:: pertinent systems reviewed and negative unless documented below Meds Home Medications and Allergies Home Medications ?Medication ?Instructions ?Recorded ?Confirmed ?Type omeprazole 20 mg capsule,delayed 20 mg PO DAILY 09/02/24 09/15/24 History release vit no.95-ferrous 1 tab PO DAILY 09/02/24 09/15/24 History fumarate 28 mg-folic acid 800 mcg tablet () thiamine HCl (vitamin B1) 100 mg 100 mg PO DAILY 09/02/24 09/15/24 History tablet potassium chloride 20 mEq 40 meq (2 x 20 mEq) PO BID 5 days 09/05/24 09/15/24 Rx tablet,extended #20 tabs release(part/cryst) (Klor-Con M) clindamycin HCl 300 mg capsule 300 mg PO TID #30 caps 09/12/24 09/15/24 Rx (Cleocin HCl) ferrous sulfate 325 mg (65 mg 325 mg PO DAILY #30 tabs 09/12/24 09/15/24 Rx iron) tablet (Iron (ferrous sulfate)) oxycodone-acetaminophen 5 mg-325 1 tab PO Q6H PRN pain #12 tabs 09/12/24 09/15/24 Rx mg tablet New Prescriptions to Start Prescriptions: Allergies Allergy/AdvReac Type Severity Reaction Status Date / Time peanut Allergy Severe Hives Verified 09/10/24 14:31 Exam Data for Last 24 hours Vital signs and Labs for Last 24 Hours: Temp Pulse Resp BP Pulse Ox O2 Del Method 98.2 F 85 16 93/59 L 98 Room Air 09/16/24 04:41 09/16/24 04:41 09/16/24 04:41 09/16/24 04:41 09/16/24 04:41 09/16/24 04:41 Laboratory Results - last 24 hr 09/15/24 15:42: WBC 10.2, RBC 3.42 L, Hgb 10.1 L, Hct 30.7 L, MCV 89.8, MCH 29.5, MCHC 32.9, RDW 15.0, Plt Count 254, MPV 11.8 H, Neut % (Auto) 71.0, Lymph % (Auto) 19.9, [place] % (Auto) 8.3, Eos % (Auto) 0.3, Baso % (Auto) 0.2, Neut # (Auto) 7.3, Lymph # (Auto) 2.0, [place] # (Auto) 0.9, Eos # (Auto) 0.0, Baso # (Auto) 0.0, Sodium 135 L, Potassium 3.2 L, Chloride 100, Carbon Dioxide 26, Anion Gap 12.2, BUN 5 L D, Creatinine 0.50 L D, Estimated Creat Clear 183, Estimated GFR 142, Est GFR ( Amer) 172 D, Glucose 86, Calcium 8.7, Magnesium 1.4 L, Total Bilirubin 0.7, AST 27, ALT 14 D, Alkaline Phosphatase 85, Total Protein 7.0, Albumin 3.6 D, Globulin 3.4 H, Albumin/Globulin Ratio 1.1 09/15/24 16:56: Urine Color Yellow, Urine Appearance Sl cloudy, Urine pH 8.5, Ur Specific [place] 1.010, Urine Protein 2+ A, Urine Glucose (UA) Negative, Urine Ketones 1+, Urine Blood Negative, Urine Nitrate Negative, Urine Bilirubin Negative, Urine Urobilinogen 0.2, Ur Leukocyte Esterase Negative, Urine RBC None, Urine WBC None, Ur Squamous Epith Cells Occasional, Amorphous Sediment 2+, Urine Bacteria None 09/16/24 03:55: Magnesium 2.0 D 09/16/24 04:23: Sodium 133 L, Potassium 3.5, Chloride 100, Carbon Dioxide 30, Anion Gap 6.5, BUN 4 L, Creatinine 0.50 L, Estimated Creat Clear 183, Estimated GFR 142, Est GFR ( Amer) 172, Glucose 82, Calcium 8.7, Total Bilirubin 0.5, AST 25, ALT 12, Alkaline Phosphatase 76, Total Protein 6.1 L, Albumin 3.1 L D, Globulin 3.0, Albumin/Globulin Ratio 1.0 L I & O for Last 24 hours: Intake & Output 09/13/24 09/14/24 09/15/24 09/16/24 11:59 11:59 11:59 11:59 Weight 160 lb 0.008 oz Constitutional Constitutional: no acute distress *Routine HEENT Exam Head: Present normocephalic Eye: Present EOMI and PERRL ENT: Present mucous membranes moist *Routine Neck Exam Neck: Present supple; Absent lymphadenopathy *Routine Respiratory Exam Respiratory: Present CTA bilaterally *Routine Cardiovascular Exam Cardiovascular: Present RRR *Routine Abdominal Exam Abdominal: Present soft and normoactive bowel sounds; Absent tenderness *Routine Rectal Exam Rectal:: deferred *Routine Genitalia Exam Genitalia:: deferred *Routine Extremities Exam Extremities: Absent cyanosis, clubbing or edema *Routine Skin Exam Skin: Present warm; Absent rash *Routine Neurological Exam Neurological: Present alert and oriented X3 Assessment and Plan *Assessment and plan (1) Hypomagnesemia: Status: Acute Category: Medical Code(s): E83.42 - Hypomagnesemia (2) Vomiting affecting : Status: Acute Category: Medical Code(s): O21.9 - Vomiting of , unspecified (3) GERD (gastroesophageal reflux disease): Status: Acute Qualifiers: Esophagitis presence: without esophagitis Qualified Code(s): K21.9 - Gastro-esophageal reflux disease without esophagitis Category: Medical Code(s): K21.9 - Gastro-esophageal reflux disease without esophagitis (4) Hypokalemia: Status: Acute Category: Medical Code(s): E87.6 - Hypokalemia Plan 1.. We had planned to have her see high risk at last Monday but unfortunately she was told that Dr. Weller was not in that day. As a result of that she did not go down there. 2. She has had this in previous pregnancies and the gist of my conversation with Dr. Weller was that she would just need to continue with potassium and magnesium replacement throughout the rest of her . 3. Given the fact that she is needing more and more potassium we will plan to have her come in every other day for potassium and magnesium replacement. 4. At some point we will have her see Dr. Weller and the patient stated he was in the clinic on Mondays so we will see if we can make those arrangements. 5. We will continue with runs of potassium and magnesium every other day. We will determine the ideal amount based on her potassium and magnesium levels and I suspect that we will be between 6 and 8 runs of potassium and around 3 runs of magnesium each time. 6. Will plan to send her home later today, Monday, September 16, 2024. 7. She will follow-up in 48 hours time for repeat infusions.
[2024-09-16] MEDS: MAGNESIUM CITRATE 296ML BOTTLE 296 ML PO (13:15)
--- NOTE | 2024-09-16 15:52 | EXP.DC.SUM ---
General Admission date:: 09/15/24 Discharge date: 09/16/24 HPI HPI HPI: She is a 34-year-old 9 para 5 aborta 3 who is 29+ weeks gestational age. She has what seems like -induced Bartter syndrome. She has had this in her previous pregnancies. This however she has had increased spillage of potassium requiring every other day infusions. She arrived with her potassium being somewhat low at 3.2 her magnesium was also low. As result that she was admitted and has received 3 rounds of both potassium and magnesium. We will give her another 3 rounds of potassium today. She has had previous workups by nephrology in this and in other pregnancies and no cause for her hypokalemia has been determined. It suspected that this is just a -induced Bartter's. Hospital Course Hospital Course Hospital Course: She has received 6 rounds of potassium as well as 3 g of magnesium sulfate. Her post infusion potassium is 3.5. She will be discharged home to follow-up with me tomorrow as planned. We will also check her potassium again tomorrow. We will continue with every other day testing and potassium/magnesium replacement. We will continue to watch her closely and monitor her levels. She will try and get to [facility] next Monday for consult with Dr. Weller. Exam Data for Last 24 hours Vital signs and Labs for Last 24 Hours: Temp Pulse Resp BP Pulse Ox O2 Del Method 98.2 F 80 16 94/53 L 100 Room Air 09/16/24 08:45 09/16/24 08:45 09/16/24 08:45 09/16/24 08:45 09/16/24 08:45 09/16/24 08:45 Laboratory Results - last 24 hr 09/15/24 15:42: WBC 10.2, RBC 3.42 L, Hgb 10.1 L, Hct 30.7 L, MCV 89.8, MCH 29.5, MCHC 32.9, RDW 15.0, Plt Count 254, MPV 11.8 H, Neut % (Auto) 71.0, Lymph % (Auto) 19.9, [place] % (Auto) 8.3, Eos % (Auto) 0.3, Baso % (Auto) 0.2, Neut # (Auto) 7.3, Lymph # (Auto) 2.0, [place] # (Auto) 0.9, Eos # (Auto) 0.0, Baso # (Auto) 0.0, Sodium 135 L, Potassium 3.2 L, Chloride 100, Carbon Dioxide 26, Anion Gap 12.2, BUN 5 L D, Creatinine 0.50 L D, Estimated Creat Clear 183, Estimated GFR 142, Est GFR ( Amer) 172 D, Glucose 86, Calcium 8.7, Magnesium 1.4 L, Total Bilirubin 0.7, AST 27, ALT 14 D, Alkaline Phosphatase 85, Total Protein 7.0, Albumin 3.6 D, Globulin 3.4 H, Albumin/Globulin Ratio 1.1 09/15/24 16:56: Urine Color Yellow, Urine Appearance Sl cloudy, Urine pH 8.5, Ur Specific [place] 1.010, Urine Protein 2+ A, Urine Glucose (UA) Negative, Urine Ketones 1+, Urine Blood Negative, Urine Nitrate Negative, Urine Bilirubin Negative, Urine Urobilinogen 0.2, Ur Leukocyte Esterase Negative, Urine RBC None, Urine WBC None, Ur Squamous Epith Cells Occasional, Amorphous Sediment 2+, Urine Bacteria None 09/16/24 03:55: Magnesium 2.0 D 09/16/24 04:23: Sodium 133 L, Potassium 3.5, Chloride 100, Carbon Dioxide 30, Anion Gap 6.5, BUN 4 L, Creatinine 0.50 L, Estimated Creat Clear 183, Estimated GFR 142, Est GFR ( Amer) 172, Glucose 82, Calcium 8.7, Total Bilirubin 0.5, AST 25, ALT 12, Alkaline Phosphatase 76, Total Protein 6.1 L, Albumin 3.1 L D, Globulin 3.0, Albumin/Globulin Ratio 1.0 L I & O for Last 24 hours: Intake & Output 09/14/24 09/15/24 09/16/24 09/17/24 11:59 11:59 11:59 11:59 Weight 160 lb 0.008 oz Constitutional Constitutional: no acute distress *Routine HEENT Exam Head: Present normocephalic ENT: Present mucous membranes moist *Routine Neck Exam Neck: Present full ROM *Routine Respiratory Exam Respiratory: Present normal respiratory effort; Absent accessory muscle use Results Data Completed and Pending Labs on day of discharge: Labs from last 24 hours 09/16/24 09/16/24 09/15/24 04:23 03:55 16:56 WBC RBC Hgb Hct MCV MCH MCHC RDW Plt Count MPV Neut % (Auto) Lymph % (Auto) [place] % (Auto) Eos % (Auto) Baso % (Auto) Neut # (Auto) Lymph # (Auto) [place] # (Auto) Eos # (Auto) Baso # (Auto) Sodium 133 L Potassium 3.5 Chloride 100 Carbon Dioxide 30 Anion Gap 6.5 BUN 4 L Creatinine 0.50 L Estimated Creat Clear 183 Estimated GFR 142 Est GFR ( Amer) 172 Glucose 82 Calcium 8.7 Magnesium 2.0 D Total Bilirubin 0.5 AST 25 ALT 12 Alkaline Phosphatase 76 Total Protein 6.1 L Albumin 3.1 L D Globulin 3.0 Albumin/Globulin Ratio 1.0 L Urine Color Yellow Urine Appearance Sl cloudy Urine pH 8.5 Ur Specific [place] 1.010 Urine Protein 2+ A Urine Glucose (UA) Negative Urine Ketones 1+ Urine Blood Negative Urine Nitrate Negative Urine Bilirubin Negative Urine Urobilinogen 0.2 Ur Leukocyte Esterase Negative Urine RBC None Urine WBC None Ur Squamous Epith Cells Occasional Amorphous Sediment 2+ Urine Bacteria None 09/15/24 15:42 WBC 10.2 RBC 3.42 L Hgb 10.1 L Hct 30.7 L MCV 89.8 MCH 29.5 MCHC 32.9 RDW 15.0 Plt Count 254 MPV 11.8 H Neut % (Auto) 71.0 Lymph % (Auto) 19.9 [place] % (Auto) 8.3 Eos % (Auto) 0.3 Baso % (Auto) 0.2 Neut # (Auto) 7.3 Lymph # (Auto) 2.0 [place] # (Auto) 0.9 Eos # (Auto) 0.0 Baso # (Auto) 0.0 Sodium 135 L Potassium 3.2 L Chloride 100 Carbon Dioxide 26 Anion Gap 12.2 BUN 5 L D Creatinine 0.50 L D Estimated Creat Clear 183 Estimated GFR 142 Est GFR ( Amer) 172 D Glucose 86 Calcium 8.7 Magnesium 1.4 L Total Bilirubin 0.7 AST 27 ALT 14 D Alkaline Phosphatase 85 Total Protein 7.0 Albumin 3.6 D Globulin 3.4 H Albumin/Globulin Ratio 1.1 Urine Color Urine Appearance Urine pH Ur Specific [place] Urine Protein Urine Glucose (UA) Urine Ketones Urine Blood Urine Nitrate Urine Bilirubin Urine Urobilinogen Ur Leukocyte Esterase Urine RBC Urine WBC Ur Squamous Epith Cells Amorphous Sediment Urine Bacteria DS: Diagnosis Discharge Diagnosis (1) Hypomagnesemia: Status: Acute Code(s): E83.42 - Hypomagnesemia (2) Vomiting affecting : Status: Acute Code(s): O21.9 - Vomiting of , unspecified (3) GERD (gastroesophageal reflux disease): Status: Acute Code(s): K21.9 - Gastro-esophageal reflux disease without esophagitis Qualifiers: Esophagitis presence: without esophagitis Qualified Code(s): K21.9 - Gastro-esophageal reflux disease without esophagitis (4) Hypokalemia: Status: Acute Code(s): E87.6 - Hypokalemia Meds Home Medications and Allergies Home Medications ?Medication ?Instructions ?Recorded ?Confirmed ?Type omeprazole 20 mg capsule,delayed 20 mg PO DAILY 09/02/24 09/15/24 History release vit no.95-ferrous 1 tab PO DAILY 09/02/24 09/15/24 History fumarate 28 mg-folic acid 800 mcg tablet () thiamine HCl (vitamin B1) 100 mg 100 mg PO DAILY 09/02/24 09/15/24 History tablet potassium chloride 20 mEq 40 meq (2 x 20 mEq) PO BID 5 days 09/05/24 09/15/24 Rx tablet,extended #20 tabs release(part/cryst) (Klor-Con M) clindamycin HCl 300 mg capsule 300 mg PO TID #30 caps 09/12/24 09/15/24 Rx (Cleocin HCl) ferrous sulfate 325 mg (65 mg 325 mg PO DAILY #30 tabs 09/12/24 09/15/24 Rx iron) tablet (Iron (ferrous sulfate)) oxycodone-acetaminophen 5 mg-325 1 tab PO Q6H PRN pain #12 tabs 09/12/24 09/15/24 Rx mg tablet New Prescriptions to Start Prescriptions: Allergies Allergy/AdvReac Type Severity Reaction Status Date / Time peanut Allergy Severe Hives Verified 09/10/24 14:31 Discharge Plan Disposition Patient Disposition: Home, Self-Care Follow up Plan Prescriptions/Medication Reconciliation: Continued potassium chloride [Klor-Con M20] 20 mEq tablet,ER particles/crystals 40 meq PO BID 5 Days Qty: 20 0RF omeprazole 20 mg Capsule,Delayed Release(Dr/Ec) 20 mg PO DAILY thiamine HCl (vitamin B1) 100 mg tablet 100 mg PO DAILY PNV no.95-ferrous fumarate-FA [] 28 mg iron- 800 mcg Tablet 1 tab PO DAILY clindamycin HCl [Cleocin HCl] 300 mg capsule 300 mg PO TID Qty: 30 0RF oxycodone-acetaminophen 5-325 mg tablet 1 tab PO Q6H PRN (Reason: pain) Qty: 12 0RF ferrous sulfate [Iron (ferrous sulfate)] 325 mg (65 mg iron) Tablet 325 mg PO DAILY Qty: 30 3RF Problem Reconciliation Problems Reviewed?: Yes Patient Discharge Instructions ACTIVITY: Continue current activity Print Language: Vietnamese Providers Primary Care Provider: Norma Friedman Admit Provider: Josefina Justice Attending Provider: Josefina Justice
[2024-09-16 16:39] LABS: Chloride 101 mmol/L (98-107)
[2024-09-16 16:40] LABS: Potassium 4.0 mmoL/L (3.5-5.1); Sodium 133 mmol/L (136-145)
[2024-09-16 16:42] LABS: Blood Urea Nitrogen 4 mg/dl (7-17); Creatinine Clearance Estimated 183 mL/min (50-200); Creatinine,Serum 0.50 mg/dl (0.52-1.04); Estimated Glomerular Filt Rate 142 ml/min (>60); GFR (African American) 172 ML/MIN (>60)
[2024-09-16 16:43] LABS: Anion Gap 11.0 mEq/L (5-15); Calcium 8.4 mg/dl (8.4-10.2); Carbon Dioxide 25 mmol/L (22.0-30.0); Glucose 76 mg/dl (74-100)
== END 2024-09-16 17:04 | disposition home or self-care (01) ==
LOC: OBOUT 17:54 → OB 17:54
PROVIDERS: Nurse Practitioner Obstetrics & Gynecology; Admitting Provider Obstetrics & Gynecology; PCP Nurse Practitioner Family; Visit Provider Obstetrics & Gynecology
DX: O99.283 Endocrine, nutritional and metabolic diseases complicating pregnancy, third trimester (principal); E83.42 Hypomagnesemia; E87.6 Hypokalemia; O99.613 Diseases of the digestive system complicating pregnancy, third trimester; K21.9 Gastro-esophageal reflux disease without esophagitis; O21.9 Vomiting of pregnancy, unspecified; Z86.2 Personal history of diseases of the blood and blood-forming organs and certain disorders involving the immune mechanism; Z87.59 Personal history of other complications of pregnancy, childbirth and the puerperium; Z91.010 Allergy to peanuts; Z3A.29 29 weeks gestation of pregnancy; Z79.899 Other long term (current) drug therapy
CPT/HCPCS: 59025; 80048; 80053; 81001; 83735; 85025; 93005; 96361; 96365; 96366; 96367; 96375; 96376; G0378; J2405; J3475; J3480

== ENCOUNTER 2024-09-19 11:24 | Outpatient (CLI) | payer OTHER, SELFPAY ==
--- OUTSIDE RECORDS SUMMARY | 2024-07-22 07:44 | XMS_ITS | Encounter Summary ---
Author Organization [facility] Address [address] [place] [id number] Care Team Providers Care Electronics Manufacturer Name Role Phone Norma Friedman APRN Primary Care Provider + [phone] Reason for Referral * Diagnostic Imaging (Routine) - Closed Specialty Diagnoses / Procedures Referred By Tarik pedersen Referred To Contact Radiology Diagnoses care, antepartum, unspecified High risk due to history of labor, antepartum History of prior with small for gestational age Procedures US [facility] Kelly Watkins APRN [address] [facility] [address] [place] [address] Phone: tel: fax: [facility] US PER DIAG CTR [address] [place] [address] Phone: tel: Referral ID Status Reason Start Date Expiration Date Visits Re quested Visits Authorized [id number] Closed 07/08/2024 10/07/2025 1 1 Reason for Visit * Diagnostic Imaging (Routine) - Closed Specialty Diagnoses / Procedures Referred By Tarik t Referred To Contact Radiology Diagnoses care, antepartum, unspecified High risk due to history of labor, antepartum History of prior with small for gestational age Procedures US [facility] Kelly Watkins APRN [address] [facility] [address] [place] [address] Phone: tel: fax: [facility] US PER DIAG [facility] [address] [place] [address] Phone: tel: Referral ID Status Reason Start Date Expiration Date Visits Re quested Visits Authorized [id number] Closed 07/08/2024 10/07/2025 1 1 Encounter Details Date Type Department Care Team (Late st Contact Info) Description 07/22/2024 7:44 AM EDT - 07/22/2024 11:59 PM EDT Hospital Encounter [facility] [address] [place] [phone] Kelly Watkins, GAS MAIN FITTER HELPER [address] [place] [address] care, antepartum, unspecified ; High risk due to history of labor, antepartum; History of prior with small for gestational age Discharge Disposition: Home or Self Care Social History Tobacco Use Types Packs/Day Years Used Date Smoking Tobacco: Never Smokeless Tobacco: Never Alcohol Use Standard Drinks/Week Comments Never 0 (1 standard drink = 0.6 oz pur e alcohol) [facility] Utilities Answer Date Recorded In the past 12 months has [employer] electric, gas, oil, or water [employer] threatened to shut off services in your [...] and heating? Not hard at all 05/28/2024 [facility] [place] of Occupat ional Health - Occupational Stress [...] GED or equivalent No 05/28/2024 Preferred Language Cook Islander 05/28/2024 PHQ-2 Answer Date Recorded Patient Health [...] Description 01/20/2025 3:30 PM EST Office Visit [facility] GASTRO[facility]OLOGY [address] [address] Robbin Escalante MD [address] [address] documented as of this encounter Procedures Procedure Name Priority Date/Time Associated Diagnosis Comments [facility] Routine 07/22/2024 9:10 AM EDT care, antepartum, unspecified High risk due to history of labor, antepartum History of prior with small for gestational age documented in this encounter Results * [facility] (07/22/2024 9:10 AM EDT) Anatomical Region Laterality Modality Ultrasound 07/22/2024 8:20 AM EDT Narrative 07/22/2024 9:18 AM EDT PAT NAME: CAROLE [place] MED REC#: [id number] DA: 1990 PAT GEND: F PAT TYPE: O EXAM TRAVIS: [id number] REF PHYS KELLY WATKINS Comparison Studies There [...] EFW (oz) 13 oz EFW by: Hadlock ([id number]-FL) Extended Tibia 28.0 mm 20w 1d 17% Jamal Fibula 27.3 mm 19w 5d 17% Jamal Radius 26.9 mm 20w 0d 36% Jamal Ulna 30.0 mm 21w 1d 33% Jamal Cav. septi pel. tr 3.7 mm Clinical Pharmacy Coordinator 5.4 mm CM 4.7 mm 32% Nicolaides [...] normal IVC: normal 3-vessel view: Appears normal 0-tsidon-khhpwur view: Appears normal Rt lung: Appears normal [...] Follow-up as clinically indicated. Coding ======= Description: 22784-33 Detailed Boiler/Chiller Technician: Cheyenne Spence RDMS Physician: Sebastian Larsen MD, FACOG Electronically signed by: Sebastian Larsen MD, FACOG at: 09:18 Procedure Note Sebastian Larsen MD - 07/22/2024 PAT NAME: CAROLE [place] MED REC#: [id number] DA: [id number] PAT GEND: F PAT TYPE: O EXAM TRAVIS: [id number] REF PHYS KELLY WATKINS Comparison Studies There are no relevant prior studies to which this study is beingcompared Patient Status Outpatient Indication ======== Incomplete anatomy, previous SGA, hx c/s x1 Maternal Assessment Jxeekv857 cm Height (ft)5 ft Height (in)4 in Djudhk90 kg Weight (lb)163 lb BMI28.17 kg/m Method ======= Transabdominal ultrasound examination ========= Lvoe . Number of fetuses: 1 Dating ====== Method of dating:based on stated DUSTY GA by prior hjhutwaxtu91 w + 1 d DUSTY by prior assessment:12/01/2024 Ultrasound examination on:07/22/2024 GA by U/S based upon:AC, BPD, Femur, HC GA by U/S20 w + 5 d DUSTY by U/S:12/04/2024 Previous dating:based on stated DUSTY, selected on 07/05/2024 Agreed DUSTY of previous datin12/01/2024 Assigned:based on stated DUSTY, selected on 07/22/2024 Assigned GA21 w + 1 d Assigned DUSTY:12/01/2024 cgyjtc084 d Biometry Standard BPD47.5 mm 20w 3d 19% Hadlock OFD63.7 mm 21w 5d 69% Jamal HC177.8 mm 20w 2d 9% Hadlock Cerebellum tr22.0 mm 20w 4d 46% Hill AC160.4 mm 21w 1d 43% Hadlock Femur33.9 mm 20w 5d 24% Hadlock Jnycwjh08.7 mm 21w 0d 40% Jamal HC / AC1.11 QBB933 g 20w 5d 29% Hadlock EFW (lb)0 lb EFW (oz)13 oz EFW by:Hadlock (LKI-WK-HT-FL) Extended Tibia28.0 mm 20w 1d 17% Jamal Bxbzyp56.3 mm 19w 5d 17% Jamal Xiozfz02.9 mm 20w 0d 36% Jamal Ulna30.0 mm 21w 1d 33% Jamal Cav. septi pel. tr3.7 mm Vp5.4 mm CM4.7 mm 32% Nicolaides Head / Face / Neck Cephalic index0.75 11% Nicolaides Extremities / Bony Struc FL / BPD0.71 FL / HC0.19 FL / AC0.21 Other Structures CRB562 bpm General Evaluation Cardiac activity present. FHR [...] view:Appears normal SVC:normal IVC:normal 3-vessel view:Appears normal 1-gcaolo-ssjcekp view:Appears normal Rt lung:Appears normal Lt lung:normal [...] Structures Uterus / Cervix Cervix:Visualized Approach:Transabdominal Cervical yhrwyd97.6 mm Ovaries / Tubes / Adnexa Rt ovary:Visualized Lt ovary:Visualized Impression Today's exam reveals a SIUP with biometry consistent with dates. Fetalanatomic survey appears normal. Fluid is normal. The placenta is anterior,left. The TA cervical length appears adequate Recommendation Follow-up as clinically indicated. Coding ======= Description:16518-76 Detailed Boiler/Chiller Technician: Cheyenne Spence RDMS Physician: Sebastian Larsen MD, FACOG Electronically signed by: Sebastian Larsen MD, FACOG at: 09:18 Result [facility] Kelly Watkins APRN [facility] US ORDERABLES Final Resu lt documented in this encounter Visit Diagnoses Diagnosis care, antepartum, unspecified High risk due to history of labor, antepartum History of prior with small for gestational age documented in this encounter Additional Health Concerns Assessment Noted Time PHQ-2 Depression Total Score: 2 05/28/19 25 4:39 PM EDT documented as of this encounter Care Teams Electronics Manufacturer Relationship Specialty Start Date End Date Norma Friedman APRN [address] [place] G3 [place] [address] PCP - General Family Medicine 05/14/24 documented as of this encounter
--- OUTSIDE RECORDS SUMMARY | 2024-07-22 08:00 | XMS_ITS | Encounter Summary ---
Author Organization [facility] Address [address] [place] [phone] Care Team Providers Care Feather Washer Name Role Phone Ivyashlyn Valentinoseven JOLENE Primary Care Provider + [phone] Reason for Visit * Reason Comments incomplete anatomy; hx SGA in prev. preg onelia; prev. c/s Encounter Details Date Type Department Care Team (Late st Contact Info) Description 07/22/2024 8:00 AM EDT Office Visit [facility] MATERNAL MEDICINE [address] [place] [address] [place] [address] Sebastian Larsen MD 1700 [facility] [address] [place] [phone] History of prior with small for gestational age (Primary Dx) Social History Tobacco Use Types Packs/Day Years Used Date Smoking Tobacco: Never Smokeless Tobacco: Never Alcohol Use Standard Drinks/Week Comments Never 0 (1 standard drink = 0.6 oz pur e alcohol) [facility] Utilities Answer Date Recorded In the past 12 months has [employer] electric, gas, oil, or water company threatened [...] and heating? Not hard at all 05/28/2024 [facility] [place] of Occupat ional Health - Occupational Stress [...] GED or equivalent No 05/28/2024 Preferred Language Latvian 05/28/2024 PHQ-2 Answer Date Recorded Patient Health [...] Description 01/20/2025 3:30 PM EST Office Visit [facility] GASTROENTEROLOGY [address] [facility] [address] [place] [address] Robbin Escalante MD [address] [facility] [address] [place] [address] documented as of this encounter Visit Diagnoses Diagnosis History of prior with small for gestational age - Primary documented in this encounter Additional Health Concerns Assessment Noted Time PHQ-2 Depression Total Score: 2 05/28/19 25 4:39 PM EDT documented as of this encounter Care Teams Feather Washer Relationship Specialty Start Date End Date Norma Friedman APRN [address] [place] [address] [place] [address] PCP - General Family Medicine 05/14/24 documented as of this encounter
--- OUTSIDE RECORDS SUMMARY | 2024-07-22 09:10 | XMS_ITS | Encounter Summary ---
[facility] Organization [facility] Address [address] [place] [phone] Care Team Providers Care Wringer And Setter Name Role Phone Norma Friedman APRN Primary Care Provider + [phone] Reason for Referral * Consultation (Routine) - Closed Specialty Diagnoses / Procedures Referred By Contac t Referred To Contact Nephrology Diagnoses History of proteinuria syndrome Procedures [place] OFFICE/OUTPATIENT NEW MODERATE MDM 45 MINUTES Staci Jain MD [address] [place] [address] Phone: tel: fax: [place] [address] Phone: tel: Referral ID Status Reason Start Date Expiration Date V isits Requested Visits Authorized [id number] Closed Specialty Services Required 07/22/2024 10/21/2025 1 1 Reason for Visit * Reason Comments Routine Visit * Diagnostic Imaging (Routine) - Closed Specialty Diagnoses / Procedures Referred By Contact Referred To Contact Obstetrics and Gynecology Diagnoses care, subsequent , second trimester Procedures US Ob 14 + Weeks Single or First Gestation Koby Roberts MD [address] [facility] [address] [place] [address] Phone: tel: fax: [facility] O[facility]YN [address] [place] [address] Phone: tel: fax: Referral ID Status Reason Start Date Expiration Date Visits Re quested Visits Authorized [id number] Closed 06/11/2024 09/10/2025 1 1 Encounter Details Date Type Department Care Team (Late st Contact Info) Description 07/22/2024 9:10 AM EDT Routine [facility] OBGYN [address] [phone] Staci Jain MD [address] [address] [place]: 21w1d Social History Tobacco Use Types Packs/Day Years Used Date Smoking Tobacco: Never Smokeless Tobacco: Never Alcohol Use Standard Drinks/Week Comments Never 0 (1 standard drink = 0.6 oz pur e alcohol) [facility] Utilities Answer Date Recorded In the past 12 months has [employer], gas, oil, or water [employer] threatened to shut off services in your [...] and heating? Not hard at all 05/28/2024 [facility] [place] of Occupat ional Health - Occupational Stress [...] GED or equivalent No 05/28/2024 Preferred Language Frisian 05/28/2024 PHQ-2 Answer Date Recorded Patient Health Questionnaire-9 Score 2 05/28/2024 Estimated Date of Delivery Comme nts Yes 12/01/2024 Based on last az nstrual period of 02/25/2024 Sex and Gender [...] FOLLOW UP CC- Here for care of Whtiney Presley is a 34 y.o. 21w1d patient [...] IUGR. Unknown reasons. Has not seen a hospice entrance attendant This is my first time seeing patient. Transferred care. Will want to be seen in [facility]. Her care is complicated by [...] about 4 weeks (around 08/19/2024) for in [place]. Staci Jain MD 07/22/2024 documented in this encounter Plan of Treatment Upcoming Encounters Date Type Department Care Team (Late st Contact Info) Description 01/20/2025 3:30 PM EST Office Visit [facility] GASTROENTEROLOGY [address] [address] Robbin Escalante MD [address] [address] Scheduled Referrals Name Type Priority Associated Diagnoses [...] AM EDT) Glucose, UA Negative Negative mg/dL [facility] Protein, POC 1+(A) Negative mg/dL [facility] Urine 07/22/2024 10:0 2 AM EDT us Staci Jain MD POINT OF CARE TEST OR DERABLES Final Result [facility]
[address] [place] [address], documented in this encounter Visit Diagnoses Diagnosis Multigravida in second trimester- Primary care, subsequent , second trimester History of proteinuria syndrome History of Other postprocedural status documented in this encounter Additional Health Concerns Assessment Noted Time PHQ-2 Depression Total Score: 2 05/28/19 25 4:39 PM EDT documented as of this encounter Care Teams Wringer And Setter Relationship Specialty Start Date End Date Norma Friedman APRN [address] [place] G[address] RFAAELA APPIAH [id number] PCP - General Family Medicine 05/14/24 documented as of this encounter
--- OUTSIDE RECORDS SUMMARY | 2024-08-19 10:15 | XMS_ITS | Encounter Summary ---
Author [facility] [address] [place] [id number] Care Team Providers Care Remote Advisor Name Role Phone Norma Friedman APRN Primary Care Provider + [phone] Reason for Visit * Reason Comments Routine Visit Encounter Details Date Type Department Care Team (Late st Contact Info) Description 08/19/2024 10:[address] [facility] OBGYN [address] [place] [address] Jacey Mathews, SALES SYSTEMS ENGINEER [address] [place] [address] GA: 25w1d Social History Tobacco Use Types Packs/Day Years Used Date Smoking Tobacco: Never Smokeless Tobacco: Never Alcohol Use Standard Drinks/Week Comments Never 0 (1 standard drink = 0.6 oz pur e alcohol) [facility] Utilities Answer Date Recorded In the past 12 months has [employer], gas, oil, or water [employer] threatened to shut off services in your [...] and heating? Not hard at all 05/28/2024 [facility] [place] [facility] Health - Occupational Stress Questionnaire Answer [...] GED or equivalent No 05/28/2024 Preferred Language Kyrgyz 05/28/2024 PHQ-2 Answer Date Recorded Patient Health [...] this encounter Progress Notes * Jacey Mathews, SALES SYSTEMS ENGINEER - 08/19/2024 10:15 AM EDT Images from [...] Description 01/20/2025 3:30 PM EST Office Visit [facility] GASTROENTEROLOGY [address] [facility] [address] [place] [address] Robbin Escalante MD [address] [facility] [address] [place] [address] documented as of this encounter Visit Diagnoses Diagnosis Vaginal bleeding in - Primary 25 weeks gestation of documented in this encounter Additional Health Concerns Assessment Noted Time PHQ-2 Depression Total Score: 2 05/28/19 25 4:39 PM EDT documented as of this encounter Care Teams Remote Advisor Relationship Specialty Start Date End Date Norma Friedman APRN [address] [place] [address] [place] [id number] PCP - General Family Medicine 05/14/24 documented as of this encounter
--- OUTSIDE RECORDS SUMMARY | 2024-08-19 13:59 | XMS_ITS | Encounter Summary ---
[facility] [address] [place] [id number] Care Team Providers Care Parts Counter Clerk Name Role Phone Ivyashlyn Norma FERNÁNDEZ Primary Care Provider + [phone] Reason for Visit * Reason Comments Vaginal Bleeding * Auth/Cert (Routine) Specialty Diagnoses / Procedures Referred By Contleyla t Referred To Contact Referral ID Status Reason Start Date Expiration Date Visits Re quested Visits Authorized [id number] 1 1 Encounter Details Date Type Department Care Team (Late st Contact Info) Description 08/19/2024 1:59 PM EDT - 08/20/2024 4:28 PM EDT Hospital Encounter [facility] [address] [place] [id number] Rob Wharton MD [address] [facility] [address] [place] [address] Blu Alvarado MD [address] [facility] [address] [place] [address] Dysphagia, unspecified type (Primary Dx) Discharge Disposition: Home or Self Care Social History Tobacco Use Types Packs/Day Years Used Date Smoking Tobacco: Never Smokeless Tobacco: Never Alcohol Use Standard Drinks/Week Comments Never 0 (1 standard drink = 0.6 oz pur e alcohol) [facility] Utilities Answer Date Recorded In the past 12 months has [employer], gas, oil, or water [employer] threatened to shut off services in your [...] and heating? Not hard at all 05/28/2024 [employer] [place] of Occupat ional Health - Occupational Stress [...] GED or equivalent No 05/28/2024 Preferred Language Malaysian 05/28/2024 PHQ-2 Answer Date Recorded Patient Health [...] 1:23 PM EDT Polly Lacey RN * [place] Suicide Severity Rating Scale (Screener/Recent Self-Report) Question [...] Labs beginning of week and f/u with wa Seng Test Results Pending at Discharge Pending Labs Order Current Status Tissue Pathology Exam In process Rob Wharton MD 08/20/24 15:36 EDT Time: Discharge <30 min documented in this encounter Discharge Instructions * Attachments The following attachments cannot be sent through Care Everywhere. * Second Trimester of (Malaysian) * Upper Endoscopy Adult Care After (Malaysian) documented in this encounter Medications at Time [...] 08/19/2024 RH Positive 08/19/2024 ABSCRN Negative 08/19/2024 [id number] non-reactive 04/12/2024 HEPCVIRUSABY negative 04/12/2024 URINECX Final [...] IUPC: Resting Tone: Resting Tone by IUPC: [place] Units: Cervix: Exam by: Method: sterile vaginal [...] from the original note were not included. [facility] Obstetric History and Physical [...] her third trimesters prior pregnancies(etiology unknown). Patient's whiting can worker is in [facility]. She states has never had [...] IUPC: Resting Tone: Resting Tone by IUPC: [place] Units: Laboratory Results: Lab Results (last 24 [...] AM EDTAssociated Order(s): IP CONSULT TO GASTROENTEROLOGY [facility] Gastroenterology Consult Referring Provider: Dr. [...] , await recommendations following EGD - consider CASINO FLOORPERSON evaluation if no etiology for difficulty swallowing [...] from the original note were not included. [facility] Obstetric History and Physical [...] her third trimesters prior pregnancies(etiology unknown). Patient's whiting can worker is in [facility]. She states has never had [...] IUPC: Resting Tone: Resting Tone by IUPC: [place] Units: Laboratory Results: Lab Results (last 24 [...] Office Visit [facility] [address] [facility] [phone] Robbin Escalante MD [address] [facility] [address] documented as of this encounter Procedures Procedure [...] NONSTRESS TEST Routine 08/19/2024 4:17 PM EDT [facility] Routine 08/19/2024 3:25 [...] EDT) Case Report Surgical Pathology Report Case: [id number] Authorizing Provider: Blu Alvarado MD Collected: 08/20/2024 01:55 PM Ordering Location: [facility] Received: 08/20/2024 02:14 PM ENDO SUITES Pathologist: Khalida Rhoades DO Specimen: Gastric, Antrum, antrum bx for path 08/22/2024 9:18 AM EDT [facility] Clinical Information Dysphagia, unspecified type 08/22/2024 9:18 AM EDT [facility] Final Diagnosis Stomach, antrum, biopsy: 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 pylori is negative (no organisms are identified) Negative for intestinal metaplasia, dysplasia, or malignancy 08/22/2024 9:18 AM EDT [facility] at 0918 EDT Gross Description 1. Gastric, Antrum. Received in formalin labeled antrum biopsy is a 0.4 x 0.2 x 0.2 cm pink-see soft tissue fragment submitted entirely in a single cassette. HDM 08/22/2024 9:18 AM EDT [facility] Microscopic Description The slides are reviewed and demonstrate histopathologic features supporting the above rendered diagnosis. 08/22/2024 9:18 AM EDT [facility] Tissue Pyloric antrum structure / Unknown 08/20/2024 1:55 PM EDT 08/20/2024 2:14 PM EDT us Blu Alvarado MD PATHOLOGY/CYTOLOGY ORDERABLES Final Result [facility]
[address] [place] [address], * Upper GI Endoscopy (08/20/2024 1:09 PM EDT) us Blu Alvarado MD INTERFACE NEEDS Final Result * (ABNORMAL) Basic Metabolic Panel (08/20/2024 5:25 AM EDT) Glucose 84 65 - 99 mg/dL 08/20/2024 6:13 AM EDT [facility] BUN 2.3(L) 6.0 - 20.0 mg/dL 08/20/2024 6:13 AM EDT [facility] Creatinine 0.51(L) 0.57 - 1.00 mg/dL 08/20/2024 6:13 AM EDT [facility] Sodium 139 136 - 145 mmol/L 08/20/2024 6:13 AM EDT [facility] Potassium 3.5 3.5 - 5.2 mmol/L 08/20/2024 6:13 AM EDT [facility] Chloride 109(H) 98 - 107 mmol/L 08/20/2024 6:13 AM EDT [facility] CO2 23.5 22.0 - 29.0 mmol/L 08/20/2024 6:13 AM EDT [facility] Calcium 7.8(L) 8.6 - 10.5 mg/dL 08/20/2024 6:13 AM EDT [facility] BUN/Creatinine Ratio 4.5(L) 7.0 - 25.0 08/20/2024 6:13 AM EDT [facility] Anion Gap 6.5 5.0 - 15.0 mmol/L 08/20/2024 6:13 AM T [facility] eGFR 126.6 >60.0 mL/min/1.7 3 08/20/2024 6:13 AM T [facility] Blood Venipuncture / Unknown 08/20/2024 5:25 AM EDT 08/20/2024 5:46 AM EDT [facility] - 08/20/2024 6:13 AM [...] ORDERABLES Final Resu lt Performing Organization Address City/[facility]/ZIP Co de Phone Number [facility]
[address] [place] [address], * (ABNORMAL) Potassium (08/19/2024 8:53 PM EDT) Potassium 2.7(L) 3.5 - 5.2 mmol/L 08/19/2024 9:20 PM EDT [facility] Blood Venipuncture / Unknown 08/19/2024 8:53 PM EDT 08/19/2024 9:04 PM EDT Kt Fan DO LAB BLOOD ORDERABLES Final Result Performing Organization Address [facility] Co de Phone Number [facility]
[address] [place] [address], * ABO RH Specimen Verification (08/19/2024 4:34 PM EDT) ABO Type O 08/19/2024 7:39 PM EDT [facility] RH type Positive 08/19/2024 7:39 PM EDT [facility] Blood Venipuncture / Unknown 08/19/2024 4:34 PM EDT 08/19/2024 4:53 PM EDT Rob Wharton MD BLOOD BANK TEST ORDER FRANCO Final Result Performing Organization Address City/[facility]/ZIP Co de Phone Number [facility] LABORATORY
[address] [place] [address], * Formerly [facility], later [facility] (08/19/2024 3:25 PM EDT) Anatomical Region Laterality Modality Ultrasound 08/19/2024 3:09 PM EDT Narrative 08/19/2024 4:54 PM EDT PAT NAME: CAROLE GIRARD MED REC#: [id number] DA: 1990 PAT GEND: F PAT TYPE: E EXAM TRAVIS: [id number] REF PHYS ROB WHARTON Comparison Studies The [...] EFW (oz) 9 oz EFW by: Hadlock ([id number]) Extended Cav. septi pel. tr 4.7 mm Bobbin Handler 3.8 mm CM 7.5 mm 84% Nicolaides [...] Heart / Thorax 3-vessel view: Appears normal 7-pjtzkh-pejplpq view: Appears normal Stomach: Appears normal Kidneys: [...] in 4wks for growth. Coding ======= Description: 94638-95 Follow Up Tacker Off: RT Annetta Hartmann , [facility] Physician: Jo Chappell MD Electronically signed by: Jo Chappell MD at: 16:54 Procedure Note Jo Chappell MD - 08/19/2024 PAT NAME: CAROLE GIRARD MED REC#: [id number] DA: 1990 PAT GEND: F PAT TYPE: E EXAM TRAVIS: [id number] REF PHYS ROB WHARTON Comparison Studies The findings of this study are compared to the prior ultrasound studydated 07/22/24 Patient Status Inpatient Indication ======== History of c/s x1. History of . Vaginal bleeding. Maternal Assessment Ieqhqs380 cm Height (ft)5 ft Height (in)4 in Urnmwx68 kg Weight (lb)158 lb BMI27.31 kg/m Method ======= Transabdominal ultrasound examination. View: Limited by patient bodyhabitus ========= Love . Number of fetuses: 1 Dating ====== Method of dating:based on stated DUSTY GA by prior [id number] w + 1 d DUSTY by prior assessment:12/01/2024 Ultrasound examination on:08/19/2024 GA by U/S based upon:AC, BPD, Femur, HC GA by U/S24 w + 2 d DUSTY by U/S:12/07/2024 Previous dating:based on stated DUSTY, selected on 07/22/2024 Agreed DUSTY of previous datin12/01/2024 Assigned:based on stated DUSTY, selected on 08/19/2024 Assigned GA25 w + 1 d Assigned DUSTY:12/01/2024 [email or web address] d Biometry Standard BPD57.6 mm 23w 4d 5% Hadlock OFD81.6 mm 26w 4d 88% Jamal HC225.7 mm 24w 4d 13% Hadlock Cerebellum tr28.9 mm 25w 2d 62% Hill AC194.9 mm 24w 1d 15% Hadlock Femur44.9 mm 24w 6d 27% Hadlock Dkblkkf13.3 mm 25w 3d 50% Jamal HC / AC1.16 SSJ637 g 24w 2d 16% Hadlock EFW (lb)1 lb EFW (oz)9 oz EFW by:Hadlock (UKZ-ZC-ZU-FL) Extended Cav. septi pel. tr4.7 mm Vp3.8 mm CM7.5 mm 84% Nicolaides Head / Face / Neck Cephalic index0.71 <1% Nicolaides Extremities / Bony Struc FL / BPD0.78 FL / HC0.20 FL / AC0.23 Other Structures ANG866 bpm General Evaluation Cardiac activity present. FHR [...] normal Heart / Thorax 3-vessel view:Appears normal 4-lqyfcu-zxhofgk view:Appears normal Stomach:Appears normal Kidneys:Appears normal Bladder:Appears normal Gender:female Wants to know gender:yes Maternal Structures Uterus / Cervix Cervix:Visualized Approach:Transabdominal Cervical ljopsu49.9 mm Doppler Arterial Umbilical A PI1.01 32% [...] office in 4wks for growth. Coding ======= Description:[id number] Follow Up Tacker Off: RT Annetta Hartmann , RDMS Physician: Jo Chappell MD Electronically signed by: Jo Chappell MD at: 16:54 us Kt Fan DO G US ORDERABLES Final Res ult * Protein / Creatinine Ratio, Urine - Urine, Clean Catch (08/19/2024 3:02 PM EDT) Protein/Creati nine Ratio, Urine 126.1 0.0 - 200.0 mg/G Crea 08/20/2024 12:47 AM EDT [facility] Creatinine, Urine 148.3 mg/dL 08/20/2024 12:47 AM EDT [facility] Total Protein, Urine 18.7 mg/dL 08/20/2024 12:47 AM EDT [facility] Urine Urine specimen obtained by clean catch procedure / Unknown Collection / Unknown 08/19/2024 3:02 PM EDT 08/19/2024 4:26 PM EDT Kt Fan URINE ORDERABLES Final Resu lt [facility]
[address] [place] [address], [place] [phone] * (ABNORMAL) Magnesium (08/19/2024 3:02 PM EDT) Magnesium 1.5(L) 1.6 - 2.6 mg/dL 08/19/2024 5:12 PM EDT [facility] Blood Line / Unknown 08/19/2024 3: 02 PM EDT 08/19/2024 3:10 PM EDT Kt Fan DO LAB BLOOD ORDERABLES Final Result [facility]
[address] [place] [address], [place] [phone] * Urinalysis, Microscopic Only - Urine, Clean Catch (08/19/2024 3:02 PM EDT) RBC, UA 0-2 None Seen, 0-2 /HPF 08/19/2024 3:33 PM EDT [facility] WBC, UA 0-2 None Seen, 0-2 /HPF 08/19/2024 3:33 PM EDT [facility] Bacteria, UA None Seen None Seen /HPF 08/19/2024 3:33 PM EDT [facility] Squamous Epithelial Cells, UA 0-2 None Seen, 0-2 /HPF 08/19/2024 3:33 PM EDT [facility] Hyaline Casts, UA None Seen None Seen /LPF 08/19/2024 3:33 PM EDT [facility] Methodology Automated Microscopy 08/19/2024 3:33 PM EDT [facility] Urine Urine specimen obtained by clean catch procedure / Unknown Collection / Unknown 08/19/2024 3:02 PM EDT 08/19/2024 3:13 PM EDT us Kt Fan DO URINE ORDERABLES Final Resu lt [facility]
[address] [place] [address], * (ABNORMAL) CBC Auto Differential (08/19/2024 3:02 PM EDT) WBC 9.19 3.40 - 10.80 10*3/mm3 08/19/2024 3:23 PM EDT [facility] RBC 3.58(L) 3.77 - 5.28 10*6/mm3 08/19/2024 3:23 PM EDT [facility] Hemoglobin 10.5(L) 12.0 - 15.9 g/dL 08/19/2024 3:23 PM EDT [facility] Hematocrit 31.4(L) 34.0 - 46.6 % 08/19/2024 3:23 PM EDT [facility] MCV 87.7 79.0 - 97.0 fL 08/19/2024 3:23 PM EDT [facility] MCH 29.3 26.6 - 33.0 pg 08/19/2024 3:23 PM EDT [facility] MCHC 33.4 31.5 - 35.7 g/dL 08/19/2024 3:23 PM EDT [facility] RDW 13.4 12.3 - 15.4 % 08/19/2024 3:23 PM EDT [facility] RDW-SD 42.4 37.0 - 54.0 fl 08/19/2024 3:23 PM EDT [facility] MPV 12.0 6.0 - 12.0 fL 08/19/2024 3:23 PM EDT [facility] Platelets 241 140 - 450 10*3/mm3 08/19/2024 3:23 PM EDT [facility] Neutrophil % 66.8 42.7 - 76.0 % 08/19/2024 3:23 PM EDT [facility] Lymphocyte % 24.4 19.6 [...] - 3.10 10*3/mm3 08/19/2024 3:23 PM EDT [facility] Monocytes, Absolute 0.70 0.10 - 0.90 10*3/mm3 08/19/2024 3:23 PM EDT [facility] Eosinophils, Absolute 0.06 0.00 - 0.40 10*3/mm3 08/19/2024 3:[facility] Basophils, Absolute 0.02 0.00 - 0.20 10*3/mm3 08/19/2024 3:23 PM EDT [facility] Immature Grans, Absolute 0.03 0.00 - 0.05 10*3/mm3 08/19/2024 3:23 PM EDT [facility] nRBC 0.0 0.0 - 0.2 /100 WBC 08/19/2024 3:23 PM EDT [facility] Blood Line / Unknown 08/19/2024 3: 02 PM EDT 08/19/2024 3:10 PM EDT Kt Fan DO LAB BLOOD ORDERABLES Final Result [facility]
[address] [place] [address], * (ABNORMAL) Urinalysis With Microscopic If Indicated (No Culture) - Urine, Clean Catch (08/19/2024 3:02 PM EDT) Color, UA Yellow Yellow, Straw 08/19/2024 3:33 PM EDT [facility] Appearance, UA Clear Clear 08/19/2024 3:33 PM EDT [facility] pH, UA >=9.0(H) 5.0 - 8.0 08/19/2024 3:33 PM EDT [facility] Specific [place], UA 1.018 1.005 - 1.030 08/19/2024 3:33 PM EDT [facility] Glucose, UA Negative Negative 08/19/2024 3:33 PM EDT [facility] Ketones, UA 15 mg/dL (1+)(A) Negative 08/19/2024 3:33 PM EDT [facility] Bilirubin, UA Negative Negative 08/19/2024 3:33 PM EDT [facility] Blood, UA Negative Negative 08/19/2024 3:33 PM EDT [facility] Protein, UA 30 mg/dL (1+)(A) Negative 08/19/2024 3:33 PM EDT [facility] Leuk Esterase, UA Negative Negative 08/19/2024 3:33 PM EDT [facility] Nitrite, UA Negative Negative 08/19/2024 3:33 PM EDT [facility] Urobilinogen, UA 1.0 E.U./dL 0.2 - 1.0 E.U./dL 08/19/2024 3:33 PM EDT [facility] Urine Urine specimen obtained by clean catch procedure / Unknown Collection / Unknown 08/19/2024 3:02 PM EDT 08/19/2024 3:13 PM EDT us Kt Fan DO URINE ORDERABLES Final Resu lt Performing Organization Address City/[facility]/ZIP Co de Phone Number [facility]
[address] [place] [address], [place] [phone] * Amylase (08/19/2024 3:02 PM EDT) Amylase 73 28 - 100 U/L 08/19/2024 3:36 PM EDT [facility] Blood Line / Unknown 08/19/2024 3: 02 PM EDT 08/19/2024 3:10 PM EDT us tK Fan DO LAB BLOOD ORDERABLES Final Result Performing Organization Address [facility] Co de Phone Number [facility]
[address] [place] [address], [place] [phone] * Lipase (08/19/2024 3:02 PM EDT) Lipase 13 13 - 60 U/L 08/19/2024 3:36 PM EDT [facility] Blood Line / Unknown 08/19/2024 3: 02 PM EDT 08/19/2024 3:10 PM EDT us Kt Fan DO LAB BLOOD ORDERABLES Final Result Performing Organization Address City/[facility]/ZIP Co de Phone Number [facility]
[address] [place] [address], * (ABNORMAL) Comprehensive Metabolic Panel (08/19/2024 3:02 PM EDT) [facility] Glucose 75 65 - 99 mg/dL 08/19/2024 3:38 PM EDT [facility] BUN 3.6(L) 6.0 - 20.0 mg/dL 08/19/2024 3:38 PM EDT [facility] Creatinine 0.51(L) 0.57 - 1.00 mg/dL 08/19/2024 3:38 PM EDT [facility] Sodium 137 136 - 145 mmol/L 08/19/2024 3:38 PM EDT [facility] Potassium 2.6(LL) 3.5 - 5.2 mmol/L 08/19/2024 3:38 PM EDT [facility] Comment:Specimen hemolyzed. Result may be falsely elevated. Chloride 99 98 - 107 mmol/L 08/19/2024 3:38 PM EDT [facility] CO2 24.2 22.0 - 29.0 mmol/L 08/19/2024 3:38 PM EDT [facility] Calcium 8.8 8.6 - 10.5 mg/dL 08/19/2024 3:38 PM EDT [facility] Total Protein 6.6 6.0 - 8.5 g/dL 08/19/2024 3:38 PM EDT [facility] Albumin 3.4(L) 3.5 - 5.2 g/dL 08/19/2024 3:38 PM EDT [facility] ALT (SGPT) 10 1 - 33 U/L 08/19/2024 3:38 PM EDT [facility] AST (SGOT) 22 1 - 32 U/L 08/19/2024 3:38 PM EDT [facility] Alkaline Phosphatase 64 39 - 117 U/L 08/19/2024 3:38 PM EDT [facility] Total Bilirubin 0.5 0.0 - 1.2 mg/dL 08/19/2024 3:38 PM EDT [facility] Globulin 3.2 gm/dL 08/19/2024 3:38 PM EDT [facility] Comment:Calculated Result A/G Ratio 1.1 g/dL 08/19/2024 3:38 PM EDT [facility] BUN/Creatinine Ratio 7.1 7.0 - 25.0 08/19/2024 3:38 PM EDT [facility] Anion Gap 13.8 5.0 - 15.0 mmol/L 08/19/2024 3:38 PM EDT [facility] eGFR 126.6 >60.0 mL/min/1.7 3 08/19/2024 3:38 PM EDT [facility] Blood Line / Unknown 08/19/2024 3: 02 PM EDT 08/19/2024 3:10 PM EDT Narrative [facility] - 08/19/2024 3:38 PM [...] Fan DO LAB BLOOD ORDERABLES Final Result [facility]
[address] [place] [address], * Type & Screen (08/19/2024 3:02 PM EDT) ABO Type O 08/19/2024 3:51 PM EDT [facility] RH type Positive 08/19/2024 3:51 PM EDT [facility] Antibody Screen Negative 08/19/2024 3:51 PM EDT [facility] T&S Expiration Date 08/22/2024 11:59:59 PM 08/19/2024 3:51 PM EDT [facility] Blood Line / Unknown 08/19/2024 3: 02 PM EDT 08/19/2024 3:15 PM EDT Kt Fan DO BLOOD BANK TEST ORDERABLES Edited Result - Final [facility]
[address] [place] [address], documented in this encounter Visit Diagnoses Diagnosis [...] as of this encounter Care Teams Parts Counter Clerk Relationship Specialty Start Date End Date Norma Friedman APRN [address] [place] RAFAELA APPIAH [id number] PCP - General Family Medicine 05/14/24 documented as of this encounter
--- OUTSIDE RECORDS SUMMARY | 2024-08-20 13:33 | XMS_ITS | Encounter Summary ---
[facility] Address [address] [place] [address] Care Team Providers Care Irrigationist Name Role Phone Norma Friedman APRN Primary Care Provider + [phone] Reason for Visit * Reason Comments Vaginal Bleeding * Auth/Cert (Routine) Specialty Diagnoses / Procedures Referred By Tarik t Referred To Contact Referral ID Status Reason Start Date Expiration Date Visits Re quested Visits Authorized [id number] 1 1 Encounter Details Date Type Department Care Team (Late st Contact Info) Description 08/20/2024 1:33 PM EDT - 08/20/2024 2:05 PM EDT Surgery [facility] [address] [place] [address] Blu Alvarado MD [address] [facility] [address] [place] [address] ESOPHAGOGASTRODUODENOSCOPY [08632 (CPT )] Social History Tobacco Use Types [...] and heating? Not hard at all 05/28/2024 [facility] - Occupational Stress Questionnaire Answer Date [...] GED or equivalent No 05/28/2024 Preferred Language Andorran 05/28/2024 PHQ-2 Answer Date Recorded Patient Health [...] 1:23 PM EDT Polly Lacey RN * Ness Suicide Severity Rating Scale (Screener/Recent Self-Report) Question [...] Labs beginning of week and f[facility] Test Results Pending at Discharge Pending Labs Order Current Status Tissue Pathology Exam In process Rob Wharton MD 08/20/24 15:36 EDT Time: Discharge <30 min documented in this encounter Discharge Instructions * Attachments The following attachments cannot be sent through Care Everywhere. * Second Trimester of (Andorran) * Upper Endoscopy Adult Care After (Andorran) documented in this encounter Medications at Time [...] 08/19/2024 RH Positive 08/19/2024 ABSCRN Negative 08/19/2024 [id number] non-reactive 04/12/2024 HEPCVIRUSABY negative 04/12/2024 URINECX Final [...] IUPC: Resting Tone: Resting Tone by IUPC: [place] Units: Cervix: Exam by: Method: sterile vaginal [...] from the original note were not included. [facility] Obstetric History and Physical Referring Provider: [...] her third trimesters prior pregnancies(etiology unknown). 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 She states has never had a EGD [...] IUPC: Resting Tone: Resting Tone by IUPC: [place] Units: Laboratory Results: Lab Results (last 24 [...] AM EDTAssociated Order(s): IP CONSULT TO GASTROENTEROLOGY [facility] Gastroenterology Consult Referring Provider: Dr. Fan/Dr. Wharton PCP: Norma Friedmna APRN Reason for Consultation: IUP 25 weeks [...] expresses concern regarding recent CT scan at [facility] revealing a hiatal hernia. CT scan done prior to most recent due to ovarian cyst and incidentally revealed hiatal hernia. She reports chronic gastrointestinal symptoms. Review of medical record revealed prior GI referral due to blood per rectum. She reports colonoscopy in 2020 at outside facility that revealed diverticulosis and benign colon polyp. She is currently established with provider at [facility] for gastroenterology care she reports [...] , await recommendations following EGD - consider TIMEKEEPING SUPERVISOR evaluation if no etiology for difficulty [...] from the original note were not included. [facility] Obstetric History and Physical Referring Provider: [...] her third trimesters prior pregnancies(etiology unknown). 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 She states has never had a EGD [...] IUPC: Resting Tone: Resting Tone by IUPC: [place] Units: Laboratory Results: Lab Results (last 24 [...] Visit [facility] GASTROENTEROLOGY [address] [address] Robbin Escalante MD [address] [address] documented as of this encounter Procedures Procedure [...] NONSTRESS TEST Routine 08/19/2024 4:17 PM EDT [facility] Routine 08/19/2024 3:25 [...] EDT) Case Report Surgical Pathology Report Case: [id number] Authorizing Provider: Blu lAvarado MD Collected: 08/20/2024 01:55 PM Ordering Location: [facility] Received: 08/20/2024 02:14 PM ENDO SUITES Pathologist: Khalida Rhoades DO Specimen: Gastric, Antrum, antrum bx for path 08/22/2024 9:18 AM EDT [facility] Clinical Information Dysphagia, unspecified type 08/22/2024 9:18 AM EDT [facility] Final Diagnosis Stomach, antrum, biopsy: 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 pylori is negative (no organisms are identified) Negative for intestinal metaplasia, dysplasia, or malignancy 08/22/2024 9:18 AM EDT [facility] at 0918 EDT Gross Description 1. Gastric, Antrum. Received in formalin labeled antrum biopsy is a 0.4 x 0.2 x 0.2 cm pink-see soft tissue fragment submitted entirely in a single cassette. HDM 08/22/2024 9:18 AM EDT [facility] Microscopic Description The slides are reviewed and demonstrate histopathologic features supporting the above rendered diagnosis. 08/22/2024 9:18 AM EDT [facility] Tissue Pyloric antrum structure / Unknown 08/20/2024 1:55 PM EDT 08/20/2024 2:14 PM EDT us Blu Alvarado MD PATHOLOGY/CYTOLOGY ORDERABLES Final Result [facility]
[address] [place] [address], * Upper GI Endoscopy (08/20/2024 1:09 PM EDT) us Blu Alvarado MD INTERFACE NEEDS Final Result * (ABNORMAL) Basic Metabolic Panel (08/20/2024 5:25 AM EDT) Glucose 84 65 - 99 mg/dL 08/20/2024 6:13 AM EDT [facility] BUN 2.3(L) 6.0 - 20.0 mg/dL 08/20/2024 6:13 AM T [facility] Creatinine 0.51(L) 0.57 - 1.00 mg/dL 08/20/2024 6:13 AM [facility] Sodium 139 136 - 145 mmol/L 08/20/2024 6:13 AM EDT [facility] Potassium 3.5 3.5 - 5.2 mmol/L 08/20/2024 6:13 AM EDT [facility] Chloride 109(H) 98 - 107 mmol/L 08/20/2024 6:13 AM [facility] CO2 23.5 22.0 - 29.0 mmol/L 08/20/2024 6:13 AM [facility] Calcium 7.8(L) 8.6 - 10.5 mg/dL 08/20/2024 6:13 AM [facility] BUN/Creatinine Ratio 4.5(L) 7.0 - 25.0 08/20/2024 6:13 AM [facility] Anion Gap 6.5 5.0 - 15.0 mmol/L 08/20/2024 6:13 AM [facility] eGFR 126.6 >60.0 mL/min/1.7 3 08/20/2024 6:13 AM [facility] Blood Venipuncture / Unknown 08/20/2024 5:25 AM EDT 08/20/2024 5:46 AM T [facility] - 08/20/2024 6:13 AM EDT GFR [...] Final Resu lt Performing Organization Address City/[facility]/ZIP Co de Phone Number [facility]
[address] [place] [address], * (ABNORMAL) Potassium (08/19/2024 8:53 PM EDT) Potassium 2.7(L) 3.5 - 5.2 mmol/L 08/19/2024 9:20 PM EDT [facility] Blood Venipuncture / Unknown 08/19/2024 8:53 PM EDT 08/19/2024 9:04 PM EDT Kt Fan DO LAB BLOOD ORDERABLES Final Result Performing Organization Address [facility] Co de Phone Number [facility]
[address] [place] [address], * ABO RH Specimen Verification (08/19/2024 4:34 PM EDT) ABO Type O 08/19/2024 7:39 PM EDT [facility] RH type Positive 08/19/2024 7:39 PM EDT [facility] Blood Venipuncture / Unknown 08/19/2024 4:34 PM EDT 08/19/2024 4:53 PM EDT Rob hWarton MD BLOOD BANK TEST ORDER FRANCO Final Result Performing Organization Address City/[facility]/ZIP Co de Phone Number [facility]
[address] [place] [address], * [facility] (08/19/2024 3:25 PM EDT) Anatomical Region Laterality Modality Ultrasound 08/19/2024 3:09 PM EDT Narrative 08/19/2024 4:54 PM EDT PAT NAME: CAROLE GIRARD MED REC#: [id number] DA: 1990 PAT GEND: F PAT TYPE: E EXAM TRAVIS: [id number] REF PHYS ROB WHARTON Comparison Studies The [...] EFW (oz) 9 oz EFW by: Hadlock ([id number]) Extended Cav. septi pel. tr 4.7 mm Newspaper Copy Editor 3.8 mm CM 7.5 mm 84% Nicolaides [...] Heart / Thorax 3-vessel view: Appears normal 2-xacybe-zkiculx view: Appears normal Stomach: Appears normal Kidneys: [...] in 4wks for growth. Coding ======= Description: [id number] Follow Up Dat Instructor: Alison Verduzco RT R , [place] Physician: Jo Chappell MD Electronically signed by: Jo Chappell MD at: 16:54 Procedure Note Jo Chappell MD - 08/19/2024 PAT NAME: CAROLE GIRARD MED REC#: [id number] DA: [id number] PAT GEND: F PAT TYPE: E EXAM TRAVIS: [id number] REF PHYS ROB WHARTON Comparison Studies The findings of this study are compared to the prior ultrasound studydated 07/22/24 Patient Status Inpatient Indication ======== History of c/s x1. History of . Vaginal bleeding. Maternal Assessment [id number] cm Height (ft)5 ft Height (in)4 in Zsxqqm40 kg Weight (lb)158 lb BMI27.31 kg/m Method ======= Transabdominal ultrasound examination. View: Limited by patient bodyhabitus ========= Love . Number of fetuses: 1 Dating ====== Method of dating:based on stated DUSTY GA by prior [id number] w + 1 d DUSTY by prior [...] Hadlock Femur44.9 mm 24w 6d 27% Hadlock Thctofu93.3 mm 25w 3d 50% Jamal HC / AC1.16 RZB247 g 24w 2d 16% Hadlock EFW (lb)1 lb EFW (oz)9 oz EFW by:Hadlock ([id number]-AT-[id number]-FL) Extended Cav. septi pel. tr4.7 mm Vp3.8 mm CM7.5 mm 84% Nicolaides Head / Face / Neck Cephalic index0.71 <1% Nicolaides Extremities / Bony Struc FL / BPD0.78 FL / HC0.20 FL / AC0.23 Other Structures [id number] bpm General Evaluation Cardiac activity present. FHR [...] normal Heart / Thorax 3-vessel view:Appears normal 9-fkkxpu-oowieyv view:Appears normal Stomach:Appears normal Kidneys:Appears normal Bladder:Appears normal Gender:female Wants to know gender:yes Maternal Structures Uterus / Cervix Cervix:Visualized Approach:Transabdominal Cervical zosfaw01.9 mm Doppler Arterial Umbilical A PI1.01 32% [...] office in 4wks for growth. Coding ======= Description:[id number] Follow Up Dat Instructor: RT Annetta Hartmann , [facility] Physician: Jo Chappell MD Electronically signed by: Jo Chappell MD at: 16:54 us Kt Fan DO [facility] US ORDERABLES Final Res ult * Protein / Creatinine Ratio, Urine - Urine, Clean Catch (08/19/2024 3:02 PM EDT) Protein/Creati nine Ratio, Urine 126.1 0.0 - 200.0 mg/G Crea 08/20/2024 12:47 AM EDT [facility] Creatinine, Urine 148.3 mg/dL 08/20/2024 12:47 AM EDT [facility] Total Protein, Urine 18.7 mg/dL 08/20/2024 12:47 AM EDT [facility] Urine Urine specimen obtained by clean catch procedure / Unknown Collection / Unknown 08/19/2024 3:02 PM EDT 08/19/2024 4:26 PM EDT Kt Fan DO URINE ORDERABLES Final Resu lt [facility]
[address] [place] [address], [place] [phone] * (ABNORMAL) Magnesium (08/19/2024 3:02 PM EDT) Magnesium 1.5(L) 1.6 - 2.6 mg/dL 08/19/2024 5:12 PM EDT [facility] Blood Line / Unknown 08/19/2024 3: 02 PM EDT 08/19/2024 3:10 PM EDT Kt Fan DO LAB BLOOD ORDERABLES Final Result Performing Organization Address City/[facility]/ZIP Co de Phone Number [facility]
[address] [place] [address], [place] [phone] * Urinalysis, Microscopic Only - Urine, Clean Catch (08/19/2024 3:02 PM EDT) RBC, UA 0-2 None Seen, 0-2 /HPF 08/19/2024 3:33 PM EDT [facility] WBC, UA 0-2 None Seen, 0-2 /HPF 08/19/2024 3:33 PM EDT [facility] Bacteria, UA None Seen None Seen /HPF 08/19/2024 3:33 PM EDT [facility] Squamous Epithelial Cells, UA 0-2 None Seen, 0-2 /HPF 08/19/2024 3:33 PM EDT [facility] Hyaline Casts, UA None Seen None Seen /LPF 08/19/2024 3:33 PM EDT [facility] Methodology Automated Microscopy 08/19/2024 3:33 PM EDT [facility] Urine Urine specimen obtained by clean catch procedure / Unknown Collection / Unknown 08/19/2024 3:02 PM EDT 08/19/2024 3:13 PM EDT Kt Fan DO URINE ORDERABLES Final Resu lt [facility]
[address] [place] [address], * (ABNORMAL) CBC Auto Differential (08/19/2024 3:02 PM EDT) WBC 9.19 3.40 - 10.80 10*3/mm3 08/19/2024 3:23 PM EDT [facility] RBC 3.58(L) 3.77 - 5.28 10*6/mm3 08/19/2024 3:23 PM EDT [facility] Hemoglobin 10.5(L) 12.0 - 15.9 g/dL 08/19/2024 3:23 PM EDT [facility] Hematocrit 31.4(L) 34.0 - 46.6 % 08/19/2024 3:23 PM EDT [facility] MCV 87.7 79.0 - 97.0 fL 08/19/2024 3:23 PM EDT [facility] MCH 29.3 26.6 - 33.0 pg 08/19/2024 3:23 PM EDT [facility] MCHC 33.4 31.5 - 35.7 g/dL 08/19/2024 3:23 PM EDT [facility] RDW 13.4 12.3 - 15.4 % 08/19/2024 3:23 PM EDT [facility] RDW-SD 42.4 37.0 - 54.0 fl 08/19/2024 3:23 PM EDT [facility] MPV 12.0 6.0 - 12.0 fL 08/19/2024 3:23 PM EDT [facility] Platelets 241 140 - 450 10*3/mm3 08/19/2024 3:23 PM EDT [facility] Neutrophil % 66.8 42.7 - 76.0 % 08/19/2024 3:23 PM EDT [facility] Lymphocyte % 24.4 19.6 - 45.3 % 08/19/2024 3:23 PM EDT [facility] Monocyte % 7.6 5.0 - 12.0 % 08/19/2024 3:23 PM EDT [facility] Eosinophil % 0.7 0.3 - 6.2 % 08/19/2024 3:23 PM EDT [facility] Basophil % 0.2 0.0 - 1.5 % 08/19/2024 3:23 PM EDT [facility] Immature Grans % 0.3 0.0 - 0.5 % 08/19/2024 3:23 PM EDT [facility] Neutrophils, Absolute 6.14 1.70 - 7.00 10*3/mm3 08/19/2024 3:23 PM EDT [facility] Lymphocytes, Absolute 2.24 0.70 - 3.10 10*3/mm3 08/19/2024 3:23 PM EDT [facility] Monocytes, Absolute 0.70 0.10 - 0.90 10*3/mm3 08/19/2024 3:23 PM EDT [facility] Eosinophils, Absolute 0.06 0.00 - 0.40 10*3/mm3 08/19/2024 3:23 PM EDT [facility] Basophils, Absolute 0.02 0.00 - 0.20 10*3/mm3 08/19/2024 3:23 PM EDT [facility] Immature Grans, Absolute 0.03 0.00 - 0.05 10*3/mm3 08/19/2024 3:23 PM EDT [facility] nRBC 0.0 0.0 - 0.2 /100 WBC 08/19/2024 3:23 PM EDT [facility] Blood Line / Unknown 08/19/2024 3: 02 PM EDT 08/19/2024 3:10 PM EDT Kt Fan DO LAB BLOOD ORDERABLES Final Result [facility]
[address] [place] [address], * (ABNORMAL) Urinalysis With Microscopic If Indicated (No Culture) - Urine, Clean Catch (08/19/2024 3:02 PM EDT) Color, UA Yellow Yellow, Straw 08/19/2024 3:33 PM EDT [facility] Appearance, UA Clear Clear 08/19/2024 3:33 PM EDT [facility] pH, UA >=9.0(H) 5.0 - 8.0 08/19/2024 3:33 PM EDT [facility] Specific Emerson, UA 1.018 1.005 - 1.030 08/19/2024 3:33 PM EDT [facility] Glucose, UA Negative Negative 08/19/2024 3:33 PM EDT [facility] Ketones, UA 15 mg/dL (1+)(A) Negative 08/19/2024 3:33 PM EDT [facility] Bilirubin, UA Negative Negative 08/19/2024 3:33 PM EDT [facility] Blood, UA Negative Negative 08/19/2024 3:33 PM EDT [facility] Protein, UA 30 mg/dL (1+)(A) Negative 08/19/2024 3:33 PM EDT [facility] Leuk Esterase, UA Negative Negative 08/19/2024 3:33 PM EDT [facility] Nitrite, UA Negative Negative 08/19/2024 3:33 PM EDT [facility] Urobilinogen, UA 1.0 E.U./dL 0.2 - 1.0 E.U./dL 08/19/2024 3:33 PM EDT [facility] Urine Urine specimen obtained by clean catch procedure / Unknown Collection / Unknown 08/19/2024 3:02 PM EDT 08/19/2024 3:13 PM EDT us Kt Fan DO URINE ORDERABLES Final Resu lt [facility]
[address] [place] [address], [place] [phone] * Amylase (08/19/2024 3:02 PM EDT) Amylase 73 28 - 100 U/L 08/19/2024 3:36 PM EDT [facility] Blood Line / Unknown 08/19/2024 3: 02 PM EDT 08/19/2024 3:10 PM EDT us Kt Fan DO LAB BLOOD ORDERABLES Final Result Performing Organization Address [facility] Co de Phone Number [facility]
[address] [place] [address], [place] [phone] * Lipase (08/19/2024 3:02 PM EDT) Lipase 13 13 - 60 U/L 08/19/2024 3:36 PM EDT [facility] Blood Line / Unknown 08/19/2024 3: 02 PM EDT 08/19/2024 3:10 PM EDT us Kt Fan DO LAB BLOOD ORDERABLES Final Result Performing Organization Address City/[facility]/ZIP Co de Phone Number [facility]
[address] [place] [address], [place] [phone] * (ABNORMAL) Comprehensive Metabolic Panel (08/19/2024 3:02 PM EDT) Glucose 75 65 - 99 mg/dL 08/19/2024 3:38 PM EDT [facility] BUN 3.6(L) 6.0 - 20.0 mg/dL 08/19/2024 3:38 PM T [facility] Creatinine 0.51(L) 0.57 - 1.00 mg/dL 08/19/2024 3:38 PM EDT [facility] Sodium 137 136 - 145 mmol/L 08/19/2024 3:38 PM T [facility] Potassium 2.6(LL) 3.5 - 5.2 mmol/L 08/19/2024 3:38 PM [facility] Comment:Specimen hemolyzed. Result may be falsely elevated. Chloride 99 98 - 107 mmol/L 08/19/2024 3:38 PM [facility] CO2 24.2 22.0 - 29.0 mmol/L 08/19/2024 3:38 PM T [facility] Calcium 8.8 8.6 - 10.5 mg/dL 08/19/2024 3:38 PM T [facility] Total Protein 6.6 6.0 - 8.5 g/dL 08/19/2024 3:38 PM [facility] Albumin 3.4(L) 3.5 - 5.2 g/dL 08/19/2024 3:38 PM [facility] ALT (SGPT) 10 1 - 33 U/L 08/19/2024 3:38 PM T [facility] AST (SGOT) 22 1 - 32 U/L 08/19/2024 3:38 PM T [facility] Alkaline Phosphatase 64 39 - 117 U/L 08/19/2024 3:38 PM [facility] Total Bilirubin 0.5 0.0 - 1.2 mg/dL 08/19/2024 3:38 PM T [facility] Globulin 3.2 gm/dL 08/19/2024 3:38 PM T [facility] Comment:Calculated Result A/G Ratio 1.1 g/dL 08/19/2024 3:38 PM EDT [facility] BUN/Creatinine Ratio 7.1 7.0 - 25.0 08/19/2024 3:38 PM EDT [facility] Anion Gap 13.8 5.0 - 15.0 mmol/L 08/19/2024 3:38 PM EDT [facility] eGFR 126.6 >60.0 mL/min/1.7 3 08/19/2024 3:38 PM EDT [facility] Blood Line / Unknown 08/19/2024 3: 02 PM EDT 08/19/2024 3:10 PM EDT [facility] - 08/19/2024 3:38 PM EDT GFR [...] LAB BLOOD ORDERABLES Final Result [facility]
[address] [place] [address], * Type & Screen (08/19/2024 3:02 PM EDT) ABO Type O 08/19/2024 3:51 PM EDT [facility] RH type Positive 08/19/2024 3:51 PM EDT [facility] Antibody Screen Negative 08/19/2024 3:51 PM EDT [facility] T&S Expiration Date 08/22/2024 11:59:59 PM 08/19/2024 3:51 PM EDT [facility] Blood Line / Unknown 08/19/2024 3: 02 PM EDT 08/19/2024 3:15 PM EDT Kt Fan DO BLOOD BANK TEST ORDERABLES Edited Result - Final [facility]
[address] [place] [address], documented in this encounter Visit Diagnoses Diagnosis [...] BPA Driven Protocol Open Order & Select [facility] Electrolyte Replacement Protocol Algorithm to View [...] documented as of this encounter Care Teams Irrigationist Relationship Specialty Start Date End Date Norma Friedman APRN [address] [place] G3 RAFAELA APPIAH [id number] PCP - General Family Medicine 05/14/24 documented as of this encounter
--- OUTSIDE RECORDS SUMMARY | 2024-08-20 13:44 | XMS_ITS | Encounter Summary ---
[facility] Address [address] [place] [phone] Care Team Providers Care Consumer Educator Name Role Phone IvyKade goldbergdev FERNÁNDEZ Primary Care Provider + [phone] Reason for Visit * Auth/Cert (Routine) Specialty Diagnoses / Procedures Referred By Contac t Referred To Contact Referral ID Status Reason Start Date Expiration Date Visits Re quested Visits Authorized 1 1 Encounter Details Date Type Department Care Team (Late st Contact Info) Description 08/20/2024 1:44 PM EDT Anesthesia Event [facility] ENDO SUITES [address] [place] [address] Akash Anguiano MD [address] [place] [address] Liborio Peralta CRNA [address] [place] [address] Anesthesia Record Procedure Summary Procedure Name Responsible [...] e alcohol) [facility] Utilities Answer Date Recorded In the [...] Not hard at all 05/28/2024 [facility] [place] of Occupat ional Health - Occupational Stress [...] GED or equivalent No 05/28/2024 Preferred Language Japanese 05/28/2024 PHQ-2 Answer Date Recorded Patient Health [...] 1:23 PM EDT Polly Lacey RN * [place] Suicide Severity Rating Scale (Screener/Recent Self-Report) Question Answer Date of Assessment Author 6. Suicidal Behavior (Lifetime) No 1:23 PM EDT Polly Cabrera RN documented as of this encounter OR Notes * Anesthesia Postprocedure Evaluation - Liborio Peralta CRNA - 08/20/2024 2:18 PM EDT Patient: Whitney Presley Procedure Summary Date: 08/20/24 Room / Location: [facility] ENDOSCOPY 3 / [facility] [...] sounds: normal. 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 Plan discussed with FIRE ALARM INSTALLER. CODE STATUS: documented in this encounter Plan of Treatment Upcoming Encounters Date Type Department Care Team (Late st Contact Info) Description 01/20/2025 3:30 PM EST Office Visit [facility]STR[facility]ENTEROLOGY [address] [facility] [address] Robbin Escalante MD [address] [address] documented as of this encounter Procedures Procedure [...] and Staff Patient location during procedure: OR FIRE ALARM INSTALLER/CAA: Junior Zbigniew Jain, DAYNE Indications and Patient [...] documented as of this encounter Care Teams Consumer Educator Relationship Specialty Start Date End Date Norma Friedman APRN [address] [place] [address] [place] [address] PCP - General Family Medicine 05/14/24 documented as of this encounter
--- OUTSIDE RECORDS SUMMARY | 2024-08-29 10:00 | XMS_ITS | Encounter Summary ---
Author Organization [facility] Address [address] [place] [address] Care Team Providers Care Front End Ui Developer Name Role Phone IvyKade goldbergjoseseven JOLENE Primary Care Provider + [phone] Reason for Visit * Reason Comments Problem Encounter Details Date Type Department Care Team (Late st Contact Info) Description 08/29/2024 10:00 AM EDT Routine [facility] OBGYN [address] [place] [address] Staci Jain MD [address] [place] [address] GA: 26w4d Social History Tobacco Use Types Packs/Day Years Used Date Smoking Tobacco: Never Smokeless Tobacco: Never Alcohol Use Standard Drinks/Week Comments Never 0 (1 standard drink = 0.6 oz pur e alcohol) [facility] Utilities Answer Date Recorded In the past 12 months has [employer], gas, oil, or water [employer] threatened to shut off services in your [...] at all 05/28/2024 [facility] [place] [facility] - Occupational Stress Questionnaire Answer Date [...] GED or equivalent No 05/28/2024 Preferred Language Moroccan 05/28/2024 PHQ-2 Answer Date Recorded Patient Health [...] Description 01/20/2025 3:30 PM EST Office Visit [facility] GASTROENTEROLOGY [address] [address] Robbin Escalante MD [address] [address] documented as of this encounter Procedures Procedure [...] 08/30/2024 6:09 AM EDT Performed at: [address] [id number] State Director: Kevin Harman MD, Phone: [phone] Patient Fasting: N us Staci Jain MD LAB BLOOD ORDERABLES Final Result [facility] (AMBULATORY) [address] [place] [address], [facility] [address] [place] [address], * (ABNORMAL) Comprehensive Metabolic Panel (08/29/2024 11:05 [...] 11:0 5 AM EDT 08/29/2024 Narrative [facility] (AMBULATORY) - 08/30/2024 6:09 AM EDT Performed at: 01 - [place] [address] [address] [place], [place] [id number] State Director: Kevin Harman MD, Phone: [phone] Patient Fasting: N Staci Jain MD LAB BLOOD ORDERABLES Final Result Performing Organization Address City/[facility]/ZIP Co de Phone Number [facility] ([facility]) [address] [place] [address], [place] [phone] [facility] [address] [place] [address], [place] [phone] * (ABNORMAL) POC Urinalysis Dipstick (08/29/2024 10:13 AM EDT) Glucose, UA Negative Negative mg/dL [facility] Protein, POC Trace(A) Negative mg/dL [facility] Urine 08/29/2024 10:1 3 AM EDT us Staci Jain MD POINT OF CARE TEST OR DERABLES Final Result Performing Organization Address City/[facility]/ZIP Co de Phone Number [facility]
[address] [place] [address], documented in this encounter Visit Diagnoses Diagnosis [...] documented as of this encounter Care Teams Front End Ui Developer Relationship Specialty Start Date End Date Norma Friedman APRN [address] [place] G[address] RAFAELA APPIAH [address] PCP - General Family Medicine 05/14/24 documented as of this encounter
--- OUTSIDE RECORDS SUMMARY | 2024-09-19 11:26 | XMS_ITS | Encounter Summary ---
[facility] Address [address] [place] [address] Care Team Providers Care Well Service Pump Equipment Operator Name Role Phone Elder Norma FERNÁNDEZ Primary Care Provider + [phone] Encounter Details Date Type Department Care Team (Latest Contact Info) Description 08/29/2024 Travel Social History Tobacco Use Types Packs/Day Years Used Date Smoking Tobacco: Never Smokeless Tobacco: Never Alcohol Use Standard Drinks/Week Comments Never 0 (1 standard drink = 0.6 oz pur e alcohol) [facility] Utilities Answer Date Recorded In the past 12 months has [employer] electric, gas, oil, or water company threatened [...] Not hard at all 05/28/2024 [facility] of Occupat ional Health - Occupational Stress [...] GED or equivalent No 05/28/2024 Preferred Language North Korean 05/28/2024 PHQ-2 Answer Date Recorded Patient [...] Visit [facility] [address] [facility] [address] [place] [id number] Robbin Escalante MD [address] [facility] [address] [place] [address] documented as of this encounter Visit Diagnoses Not on filedocumented in this encounter Additional Health Concerns Assessment Noted Time PHQ-2 Depression Total Score: 2 05/28/19 25 4:39 PM EDT documented as of this encounter Care Teams Well Service Pump Equipment Operator Relationship Specialty Start Date End Date Norma Friedman APRN [address] [place] [address] [place] [address] PCP - General Family Medicine 05/14/24 documented as of this encounter
--- OUTSIDE RECORDS SUMMARY | 2024-09-19 11:26 | XMS_ITS | Clinical Summary ---
Author Organization [facility] [place] [address] Phone Care Team Providers Care High School Hvac R Instructor Name Role Phone Unavailable Primary Care [...] migh t be different from the original. [facility] - Edwardo Ojeda MD Interventional Pain Protocol: NS Appt 03/29/22 Letter Sent Maxime report completed (EVERY 3 MONTHS) ( 03/23/22) Pharmacy: [facility] [address] [place] [id number] - [phone] [facility] [address] - [phone] No known active problems Social History Tobacco [...] patient's age to complete this topic Insurance [employer] [facility] [id number]
--- OUTSIDE RECORDS SUMMARY | 2024-09-19 11:27 | XMS_ITS | Clinical Summary ---
Author Organization [employer] ([place], [place], [place], [place]) Address [address] [place] [address] Care Team Providers Care Baker Paint Name Role Phone Unavailable Primary Care Provider [...]
--- OUTSIDE RECORDS SUMMARY | 2024-09-19 11:27 | XMS_ITS | Encounter Summary ---
[facility] Address [address] [place] [address] Care Team Providers Care Quick Mixer Operator Name Role Phone Norma Friedman APRN Primary Care Provider + [phone] Encounter Details Date Type Department Care Team (Late st Contact Info) Description 08/19/2024 Telephone [facility] [place] [address] [place] [address] Jacey Mathews, LOLLYPOP MACHINE OPERATOR [address] [facility] [address] [place] [address] Social History Tobacco Use Types Packs/Day Years Used Date Smoking Tobacco: Never Smokeless Tobacco: Never Alcohol Use Standard Drinks/Week Comments Never 0 (1 standard drink = 0.6 oz pur e alcohol) [facility] Utilities Answer Date Recorded In the past 12 months has [employer], [employer], oil, or water [employer] threatened to shut off services in your [...] and heating? Not hard at all 05/28/2024 [facility] of Occupat ional [facility] - Occupational Stress Questionnaire Answer Date Recorded [...] Office Visit [facility] [address] [address] Robbin Escalante MD [address] [address] documented as of this encounter Visit Diagnoses Not on filedocumented in this encounter Additional Health Concerns Assessment Noted Time PHQ-2 Depression Total Score: 2 05/28/19 25 4:39 PM EDT documented as of this encounter Care Teams Quick Mixer Operator Relationship Specialty Start Date End Date Norma Friedman APRN [address] [place] [address] [place] APP[place] [address] PCP - General Family Medicine 05/14/24 documented as of this encounter
--- OUTSIDE RECORDS SUMMARY | 2024-09-19 11:27 | XMS_ITS ---
Author Organization [facility] Address [address] [place] [address] Care Team Providers Care Clasp Machine Operator Name Role Phone Unavailable Primary Care Provider Unavailabl e Transplant Episode Kidney Potential Donor [facility] ([place], [place]) - [facility] Referred on 05/03/2022 Marked as Deferred on 05/04/2022 Reason: Other Kidney CoordinatorNadine Augustin R.N. Phone: N/A Fax: N/A Email: N/A Care Team Name Role Phone Fax Email Nadine Augustin R.N. Kidney Coordinator N/A N/A N/A Events Pre-Donation Referred: 05/03/2022
--- OUTSIDE RECORDS SUMMARY | 2024-09-19 11:27 | XMS_ITS | Encounter Summary ---
[facility] [address] [place] [address] Care Team Providers Care Facility Examiner Name Role Phone Elder Norma FERNÁNDEZ Primary Care Provider + [phone] Encounter Details Date Type Department Care Team (Latest Contact Info) Description 08/19/2024 Travel Social History Tobacco Use Types Packs/Day Years Used Date Smoking Tobacco: Never Smokeless Tobacco: Never Alcohol Use Standard Drinks/Week Comments Never 0 (1 standard drink = 0.6 oz pur e alcohol) [facility] Utilities Answer Date Recorded In the past 12 months has [employer] electric, gas, oil, or water company threatened [...] and heating? Not hard at all 05/28/2024 [facility] of Occupat ional Health - Occupational Stress [...] 2:34 PM EDT Nneka Cross RN * [place] Suicide Severity Rating Scale (Screener/Recent Self-Report) Question Answer Date of Assessment Author 6. Suicidal Behavior (Lifetime) No 2:34 PM EDT Nneka Cross RN documented as of this encounter Plan of Treatment Upcoming Encounters Date Type Department Care Team (Late st Contact Info) Description 01/20/2025 3:30 PM EST Office Visit [facility] [address] [address] Robbin Escalante MD [address] [address] documented as of this encounter Visit Diagnoses Not on filedocumented in this encounter Additional Health Concerns Assessment Noted Time PHQ-2 Depression Total Score: 2 05/28/19 25 4:39 PM EDT documented as of this encounter Care Teams Facility Examiner Relationship Specialty Start Date End Date Norma Friedman APRN [address] [place] [address] [place] [address] PCP - General Family Medicine 05/14/24 documented as of this encounter
--- OUTSIDE RECORDS SUMMARY | 2024-09-19 11:27 | XMS_ITS | Referral Summary ---
Author Organization [employer] ([place], [place], [place], [place]) Address [address] [place] [address] Care Team Providers Care Bisque Brusher Name Role Phone Unavailable Primary Care Provider [...]
--- OUTSIDE RECORDS SUMMARY | 2024-09-19 11:27 | XMS_ITS | Encounter Summary ---
[facility] [address] [place] [id number] Care Team Providers Care Cooperative Extension Agent Name Role Phone Ivyashlyn Norma FERNÁNDEZ Primary Care Provider + [phone] Encounter Details Date Type Department Care Team (Late st Contact Info) Description 08/28/2024 Telephone [facility] OBGYN [address] [address] Staci Jain MD [address] [place] [id number] Social History Tobacco Use Types Packs/Day Years Used Date Smoking Tobacco: Never Smokeless Tobacco: Never Alcohol Use Standard Drinks/Week Comments Never 0 (1 standard drink = 0.6 oz pur e alcohol) [facility] Utilities Answer Date Recorded In the past 12 months has [employer], [employer], oil, or water [employer] threatened to shut off services in your [...] sit with a family member admitted to [facility] today and does not know if she can make it back for labs (BMP). She does have an appt in [facility] at 10 am tomorrow. Advisedthat it [...] states she was supposed to come into [facility] office today to have labs drawn however sheis currently hung up at [facility] is wondering if she could just have labs drawn there? documented in this encounter Plan of Treatment Upcoming Encounters Date Type Department Care Team (Late st Contact Info) Description 01/20/2025 3:30 PM EST Office Visit [facility] [address] [facility] [address] [place] [address] Robbin Escalante MD [address] [facility] [address] [place] [address] documented as of this encounter Visit Diagnoses Not on filedocumented in this encounter Additional Health Concerns Assessment Noted Time PHQ-2 Depression Total Score: 2 05/28/19 25 4:39 PM EDT documented as of this encounter Care Teams Cooperative Extension Agent Relationship Specialty Start Date End Date Norma Friedman APRN [address] [place] [address] [place] [address] PCP - General Family Medicine 05/14/24 documented as of this encounter
--- OUTSIDE RECORDS SUMMARY | 2024-09-19 11:27 | XMS_ITS | Encounter Summary ---
[facility] Address [address] [place] [address] Care Team Providers Care Research Geneticist Name Role Phone Ivyashlyn Norma FERNÁNDEZ Primary Care Provider + [phone] Encounter Details Date Type Department Care Team (Late st Contact Info) Description 08/27/2024 Telephone [facility] O[facility]YN [address] [place] [address] Staci Jain MD [address] [facility] [address] [place] [address] Social History Tobacco Use Types Packs/Day Years Used Date Smoking Tobacco: Never Smokeless Tobacco: Never Alcohol Use Standard Drinks/Week Comments Never 0 (1 standard drink = 0.6 oz pur e alcohol) [facility] Utilities Answer Date Recorded In the past 12 months has [employer], [employer], oil, or water [employer] threatened to shut off services in your [...] and heating? Not hard at all 05/28/2024 [facility] [place] of Occupat ional Health - Occupational [...] Visit [facility] [address] [phone] Robbin Escalante MD [address] [address] documented as of this encounter Visit Diagnoses Diagnosis History of hypokalemia- Primary documented in this encounter Additional Health Concerns Assessment Noted Time PHQ-2 Depression Total Score: 2 05/28/19 25 4:39 PM EDT documented as of this encounter Care Teams Research Geneticist Relationship Specialty Start Date End Date Norma Friedman APRN [address] [place] [address] [place] [address] PCP - General Family Medicine 05/14/24 documented as of this encounter
--- OUTSIDE RECORDS SUMMARY | 2024-09-19 11:27 | XMS_ITS ---
Author Organization [facility] Address [address] [place] [address] Care Team Providers Care Solar Electric/Photovoltaic Installer Name Role Phone Norma Friedman APRN Primary Care Provider Motherhood Connection Status:Engaged (Active) Start date:05/23/2024 Enrollment date:05/23/2024 Case Team Name Relationship Phone Bindu Castellon RN Nurse Navigator Christy Zabala RN(Responsible Staff) Nurse Navig ator Continued Care and Services Coordination
--- OUTSIDE RECORDS SUMMARY | 2024-09-19 11:27 | XMS_ITS | Encounter Summary ---
Author Organization [facility] Address [address] [place] [address] Care Team Providers Care Tissue Packer Name Role Phone Elder Norma FERNÁNDEZ Primary Care Provider + [phone] Encounter Details Date Type Department Care Team (Latest Contact Info) Description 07/22/2024 Travel Social History Tobacco Use Types Packs/Day Years Used Date Smoking Tobacco: Never Smokeless Tobacco: Never Alcohol Use Standard Drinks/Week Comments Never 0 (1 standard drink = 0.6 oz pur e alcohol) [facility] Utilities Answer Date Recorded In the past 12 months has [employer] electric, gas, oil, or water company threatened [...] hard at all 05/28/2024 [facility] [place] of Occupat ional Health - Occupational Stress [...] Office Visit [facility] [address] [facility] [address] [place] [phone] Robbin Escalante MD [address] [facility] [address] [place] [address] documented as of this encounter Visit Diagnoses Not on filedocumented in this encounter Additional Health Concerns Assessment Noted Time PHQ-2 Depression Total Score: 2 05/28/19 25 4:39 PM EDT documented as of this encounter Care Teams Tissue Packer Relationship Specialty Start Date End Date Norma Friedman APRN [address] [place] [address] [place] [address] PCP - General Family Medicine 05/14/24 documented as of this encounter
--- OUTSIDE RECORDS SUMMARY | 2024-09-19 11:27 | XMS_ITS | Encounter Summary ---
[facility] Address [address] [place] [id number] Care Team Providers Care Guest Service Aide Name Role Phone Ivyashlyn Valentinoseven JOLENE Primary Care Provider + [phone] Encounter Details Date Type Department Care Team (Late st Contact Info) Description 06/26/2024 Results Follow-Up [facility] OBGYN [address] [address] Koby Roberts MD [address] [place] [address] Social History Tobacco Use Types Packs/Day Years Used Date Smoking Tobacco: Never Smokeless Tobacco: Never Alcohol Use Standard Drinks/Week Comments Never 0 (1 standard drink = 0.6 oz pur e alcohol) [facility] Utilities Answer Date Recorded In the past 12 months has [employer], gas, oil, or water [employer] threatened to shut off services in your [...] and heating? Not hard at all 05/28/2024 [facility] of Occupat ional Health - Occupational Stress [...] GED or equivalent No 05/28/2024 Preferred Language Nepali 05/28/2024 PHQ-2 Answer Date Recorded Patient Health [...] [facility] [address] [facility] [address] Robbin Escalante MD [address] [address] documented as of this encounter Visit Diagnoses Not on filedocumented in this encounter Additional Health Concerns Assessment Noted Time PHQ-2 Depression Total Score: 2 05/28/19 25 4:39 PM EDT documented as of this encounter Care Teams Guest Service Aide Relationship Specialty Start Date End Date Norma Friedman APRN [address] [place] [address] [place] [address] PCP - General Family Medicine 05/14/24 documented as of this encounter
--- OUTSIDE RECORDS SUMMARY | 2024-09-19 11:27 | XMS_ITS | Clinical Summary ---
Author Organization [facility] Address [address] [place] [address] Care Team Providers Care Pulmonary Care Nurse Name Role Phone Norma Friedman APRN Primary Care Provider + [phone] Allergies Active Allergy Reactions Criticality Noted Date [...] [facility] [address] [place] [address] Rob Wharton MD 5 Telephone [facility] [address] [facility] [address] [place] [address] Rob Wharton MD 5 10:00 AM EDT Routine [facility] [address] [place] [address] Rob Wharton MD GA: 26w4d 5 Travel 5 Telephone [facility] [address] [facility] [address] [address] [place] [address] Rob Wharton MD 5 Telephone [facility] [address] [place] [address] Rob Wharton MD 5 1:44 PM EDT Anesthesia Event [facility] ENDO SUITES [address] [place] [address] Akash Anguiano MD Lanham, John, CRNA 5 1:33 PM EDT - 5 2:05 PM EDT Surgery [facility] ENDO SUIT[facility] [address] [place] [address] Blu Alvarado MD ESOPHAGOGASTRODUODENOSCOPY [76105 (CPT )] 5 1:59 PM EDT - 5 4:28 PM EDT Hospital Encounter [facility] ANTEPARTUM [address] [place] [address] Rob Wharton MD Brunner, Mark I, MD Dysphagia, unspecified type (Primary Dx) Discharge Disposition: Home or Self Care 5 10:15 AM EDT Routine [facility] [address] [place] [address] Jacey Mathews, WATER JET OPERATOR GA: 25w1d 5 Telephone [facility] O[facility] [address] [place] [address] Jacey Mathews, WATER JET OPERATOR 5 Travel 5 Patient Outreach [facility] LABOR DELIVERY [address] [place] [address] Christy Zabala RN 5 9:10 AM EDT Routine [facility] [address] [facility] [address] [place] [address] Rob Wharton MD GA: 21w1d 5 8:00 AM EDT Office Visit [facility] MATERNAL MEDICINE [address] [facility] [address] [address] [place] [address] Sebastian Larsen MD History of prior with small for gestational age (Primary Dx) 5 7:44 AM EDT - 5 11:59 PM EDT Hospital Encounter [facility] US PER DIAG CTR [address] [place] [address] Kelly Delgado, WATER JET OPERATOR care, antepartum, unspecified ; High risk due to history of labor, antepartum; History of prior with small for gestational age Discharge Disposition: Home or Self Care 5 Travel 5 Results Follow-Up [facility] [address] [facility] [address] [place] [address] Kelly Delgado, JOLENE 5 10:10 AM EDT Routine [facility] [address] [facility] [place] [address] [place] [address] Kelly Delgado, WATER JET OPERATOR GA: 18w5d 5 9:30 AM EDT Ancillary Procedure [facility] [address] [facility] [place] [address] [place] [address] care in second trimester, unspecified 5 Travel 5 Telephone [facility] [address] [facility] [address] [place] [address] Uriel Russ MD TRANSFER OF CARE REQ 5 10:15 PM EDT - 5 11:59 PM EDT Hospital Encounter [facility] LABOR DELIVERY [address] [place] [address] Rob Wharton MD Mirsky, Elizabeth, MD Discharge Disposition: Home or Self Care 5 Travel 5 Telephone [facility] [address] [facility] [address] [address] [place] [address] Uriel Russ MD [facility], OB 5 Telephone [facility] [address] [place] [address] Uriel Russ MD [facility] 5 [facility] [address] [place] [address] E-VisitToni MD 5 Results Follow-Up [facility] OBGYN [address] [place] [address] Uriel Russ MD 5 3:20 PM EDT Routine [facility] [address] [place] [address] [place] [address] Uriel Russ MD GA: 17w2d 5 3:00 PM EDT Ancillary Procedure [facility] [address] [place] [address] [place] [address] Bleeding in early (Primary Dx) 5 Travel 5 Telephone [facility] [address] [place] [address] Uriel Russ MD from Last [...] Recorded In the past 12 months has mymxlog, gas, oil, or water Qello threatened to shut off services in your [...] and heating? Not hard at all 05/28/2024 [facility] [place] [facility] [employer] - Occupational Stress [...] Office Visit [facility] GASTROENTEROLOGY [address] [address] Robbin Escalante MD [address] [address] Health Maintenance Due Date Last Done Comments [...] 08/20/2024 1:55 PM EDT Dysphagia, unspecified type [facility] ESOPHAGOGASTRODUODENOSCOP Y TRANSORAL DIAGNOSTIC 08/20/2024 1:44 PM [...] 10:02 AM EDT Multigravida in second trimester [facility] Routine 07/22/2024 9:10 AM EDT [...] resultswithin the time period is included. Pathologist [facility] WBC 9.26 3.40 - 10.80 10*3/mm3 [facility] [...] 6:09 AM EDT Performed at: [address] [id number] Exhaust Emissions Inspector: Kevin Harman MD, Phone: [phone] Patient Fasting: N us Rob Wharton MD LAB BLOOD ORDERABLES Final Result [facility] ([facility]) [address] [place] [address], [place] [phone] [facility] [address] [place] [address], [place] [phone] * (ABNORMAL) Comprehensive Metabolic Panel (08/29/2024 11:05 AM EDT) Only the most recent of3 resultswithin the time period is included. [facility] Glucose 72 65 - 99 [...] - 08/30/2024 6:09 AM EDT Performed at: [address] [place] [id number] Exhaust Emissions Inspector: Kevin Harman MD, Phone: [phone] Patient Fasting: N Rob Wharton MD LAB BLOOD ORDERABLES Final Result Performing Organization Address [facility] Co de Phone Number [facility] ([facility]) [address] [place] [address], [place] [phone] [facility] [address] [place] [address], [place] [phone] * (ABNORMAL) POC Urinalysis Dipstick (08/29/2024 10:13 AM EDT) Only the most recent of5 resultswithin the time period is included. Glucose, UA Negative Negative mg/dL [facility] Protein, POC Trace(A) Negative mg/dL [facility] Urine 08/29/2024 10:1 3 AM EDT Rob Wharton MD POINT OF CARE TEST OR DERABLES Final Result Performing Organization Address City/[facility]/ZIP Co de Phone Number [facility]
[address] [place] [address], [place] [phone] * BH AN ETT AIRWAY (08/20/2024 2:02 PM EDT) Narrative Liborio Peralta CRNA - 08/20/2024 2:02 PM EDT Liborio Peralta CRNA 08/20/2024 2:03 PM Airway Reason: elective Date/Time: 08/20/2024 2:02 PM Airway not difficult General Information and Staff Patient location during procedure: OR VOLUNTEER COORDINATOR/CAA: Junior Zbigniew Wharton CRNA Indications and Patient [...] bilaterally with symmetric chest rise and fall [facility] VOLUNTEER COORDINATOR ANESTHESIA ORDERABLES Final Res ult * Tissue Pathology Exam (08/20/2024 1:55 PM EDT) Case Report Surgical Pathology Report Case: [id number] Authorizing Provider: Blu Alvarado MD Collected: 08/20/2024 01:55 PM Ordering Location: [facility] Received: 08/20/2024 02:14 PM ENDO SUITES Pathologist: Khalida Rhoades DO Specimen: Gastric, Antrum, antrum bx for path 08/22/2024 9:18 AM EDT [facility] Clinical Information Dysphagia, unspecified type 08/22/2024 9:18 AM EDT [facility] Final Diagnosis Stomach, antrum, biopsy: 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 pylori is negative (no organisms are identified) Negative for intestinal metaplasia, dysplasia, or malignancy 08/22/2024 9:18 AM EDT [facility] at 0918 EDT Gross Description 1. Gastric, Antrum. Received in formalin labeled antrum biopsy is a 0.4 x 0.2 x 0.2 cm pink-see soft tissue fragment submitted entirely in a single cassette. HDM 08/22/2024 9:18 AM EDT [facility] Microscopic Description The slides are reviewed and demonstrate histopathologic features supporting the above rendered diagnosis. 08/22/2024 9:18 AM EDT [facility] Tissue Pyloric antrum structure / Unknown 08/20/2024 1:55 PM EDT 08/20/2024 2:14 PM EDT us Blu Alvarado MD PATHOLOGY/CYTOLOGY ORDERABLES Final Result [facility]
[address] [place] [address], * Upper GI Endoscopy (08/20/2024 1:09 PM EDT) us Blu Alvarado MD INTERFACE NEEDS Final Result * (ABNORMAL) Basic Metabolic Panel (08/20/2024 5:25 AM EDT) Glucose 84 65 - 99 mg/dL 08/20/2024 6:13 AM EDT [facility] BUN 2.3(L) 6.0 - 20.0 mg/dL 08/20/2024 6:13 AM EDT [facility] Creatinine 0.51(L) 0.57 - 1.00 mg/dL 08/20/2024 6:13 AM EDT [facility] Sodium 139 136 - 145 mmol/L 08/20/2024 6:13 AM EDT [facility] Potassium 3.5 3.5 - 5.2 mmol/L 08/20/2024 6:13 AM EDT [facility] Chloride 109(H) 98 - 107 mmol/L 08/20/2024 6:13 AM EDT [facility] CO2 23.5 22.0 - 29.0 mmol/L 08/20/2024 6:13 AM EDT [facility] Calcium 7.8(L) 8.6 - 10.5 mg/dL 08/20/2024 6:13 AM EDT [facility] BUN/Creatinine Ratio 4.5(L) 7.0 - 25.0 08/20/2024 6:13 AM EDT [facility] Anion Gap 6.5 5.0 - 15.0 mmol/L 08/20/2024 6:13 AM EDT [facility] eGFR 126.6 >60.0 mL/min/1.7 3 08/20/2024 6:13 AM EDT [facility] Blood Venipuncture / [...] MD LAB BLOOD ORDERABLES Final Resu lt [facility] LAB[facility]
[address] [place] [address], * (ABNORMAL) Potassium (08/19/2024 8:53 PM EDT) Potassium 2.7(L) 3.5 - 5.2 mmol/L 08/19/2024 9:20 PM EDT [facility] Blood Venipuncture / Unknown 08/19/2024 8:53 PM EDT 08/19/2024 9:04 PM EDT Kt Fan DO LAB BLOOD ORDERABLES Final Result Performing Organization Address City/[facility]/ZIP Co de Phone Number [facility] LAB[facility]
[address] [place] [address], * ABO RH Specimen Verification (08/19/2024 4:34 PM EDT) ABO Type O 08/19/2024 7:39 PM EDT [facility] LABORAT[facility] RH type Positive 08/19/2024 7:39 PM EDT [facility] LABOR[facility] Blood Venipuncture / Unknown 08/19/2024 4:34 PM EDT 08/19/2024 4:53 PM EDT Rob Wharton MD BLOOD BANK TEST ORDER FRANCO Final Result Performing Organization Address [facility] de Phone Number [facility] LAB[facility]
[address] [place] [address], * [facility] (08/19/2024 3:25 PM EDT) Only the most recent of2 resultswithin the time period is included. Anatomical Region Laterality Modality Ultrasound 08/19/2024 3:09 PM EDT Narrative 08/19/2024 4:54 PM EDT PAT NAME: CAROLE GIRARD MED REC#: [id number] DA: [id number] PAT GEND: F PAT TYPE: E EXAM TRAVIS: [id number] REF PHYS ROB WHARTON Comparison Studies The [...] EFW (oz) 9 oz EFW by: Hadlock ([id number]-AK-WV-FL) Extended Cav. septi pel. tr 4.7 mm Scale Model Maker 3.8 mm CM 7.5 mm 84% [...] Heart / Thorax 3-vessel view: Appears normal 5-vxrkpz-nxxuwjn view: Appears normal Stomach: Appears normal Kidneys: [...] in 4wks for growth. Coding ======= Description: 84024-47 Follow Up Warning Analyst: RT Annetta Hartmann , [facility] Physician: Jo Chappell MD Electronically signed by: Jo Chappell MD at: 16:54 Procedure Note Jo Chappell MD - 08/19/2024 PAT NAME: CAROLE GIRARD MED REC#: [id number] DA: [id number] PAT GEND: F PAT TYPE: E EXAM TRAVIS: [id number] REF PHYS ROB WHARTON Comparison Studies The findings of this study are compared to the prior ultrasound studydated 07/22/24 Patient Status Inpatient Indication ======== History of c/s x1. History of . Vaginal bleeding. Maternal Assessment Ushpuj067 cm Height (ft)5 ft Height (in)4 in Qosyho08 kg Weight (lb)158 lb BMI27.31 kg/m Method [...] GA25 w + 1 d Assigned DUSTY:12/01/2024 [id number] d Biometry Standard BPD57.6 mm 23w 4d 5% Hadlock OFD81.6 mm 26w 4d 88% Jamal HC225.7 mm 24w 4d 13% Hadlock Cerebellum tr28.9 mm 25w 2d 62% Hill AC194.9 mm 24w 1d 15% Hadlock Femur44.9 mm 24w 6d 27% Hadlock Fwlggmv80.3 mm 25w 3d 50% Jamal HC / AC1.16 DVA392 g 24w 2d 16% Hadlock EFW (lb)1 lb EFW (oz)9 oz EFW by:Hadlock (RDH-IB-RP-FL) Extended Cav. septi pel. tr4.7 mm Vp3.8 mm CM7.5 mm 84% Nicolaides Head / Face / Neck Cephalic index0.71 <1% Nicolaides Extremities / Bony Struc FL / BPD0.78 FL / HC0.20 FL / AC0.23 Other Structures [id number] bpm General Evaluation Cardiac activity present. FHR [...] normal Heart / Thorax 3-vessel view:Appears normal 5-asjwob-zdvfccl view:Appears normal Stomach:Appears normal Kidneys:Appears normal Bladder:Appears [...] office in 4wks for growth. Coding ======= Description:66268-16 Follow Up Warning Analyst: RT Annetta Hartmann , [facility] Physician: Jo Chappell MD Electronically signed by: Jo Chappell MD at: 16:54 us Kt Fan DO [facility] ORDERABLES Final Res ult * Urinalysis, Microscopic Only - Urine, Clean Catch (08/19/2024 3:02 PM EDT) Only the most recent of2 resultswithin the time period is included. RBC, UA 0-2 None Seen, 0-2 /HPF 08/19/2024 3:33 PM EDT [facility] WBC, UA 0-2 None Seen, 0-2 /HPF 08/19/2024 3:33 PM EDT [facility] Bacteria, UA None Seen None Seen /HPF 08/19/2024 3:33 PM EDT [facility] Squamous Epithelial Cells, UA 0-2 None Seen, 0-2 /HPF 08/19/2024 3:33 PM EDT [facility] Hyaline Casts, UA None Seen None Seen /LPF 08/19/2024 3:33 PM EDT [facility] Methodology Automated Microscopy 08/19/2024 3:33 PM EDT [facility] Urine Urine specimen obtained by clean catch procedure / Unknown Collection / Unknown 08/19/2024 3:02 PM EDT 08/19/2024 3:13 PM EDT us Kt Fan DO URINE ORDERABLES Final Resu lt [facility]
[address] [place] [id number], [place] [phone] * (ABNORMAL) Urinalysis With Microscopic If Indicated (No Culture) - Urine, Clean Catch (08/19/2024 3:02 PM EDT) Only the most recent of2 resultswithin the time period is included. Color, UA Yellow Yellow, Straw 08/19/2024 3:33 PM EDT [facility] Appearance, UA Clear Clear 08/19/2024 3:33 PM EDT [facility] pH, UA >=9.0(H) 5.0 - 8.0 08/19/2024 3:33 PM EDT [facility] Specific [place], UA 1.018 1.005 - 1.030 08/19/2024 3:33 PM EDT [facility] Glucose, UA Negative Negative 08/19/2024 3:33 PM EDT [facility] Ketones, UA 15 mg/dL (1+)(A) Negative 08/19/2024 3:33 PM EDT [facility] Bilirubin, UA Negative Negative 08/19/2024 3:33 PM EDT [facility] Blood, UA Negative Negative 08/19/2024 3:33 PM EDT [facility] Protein, UA 30 mg/dL (1+)(A) Negative 08/19/2024 3:33 PM EDT [facility] Leuk Esterase, UA Negative Negative 08/19/2024 3:33 PM EDT [facility] Nitrite, UA Negative Negative 08/19/2024 3:33 PM EDT [facility] Urobilinogen, UA 1.0 E.U./dL 0.2 - 1.0 E.U./dL 08/19/2024 3:33 PM EDT [facility] Urine Urine specimen obtained by clean catch procedure / Unknown Collection / Unknown 08/19/2024 3:02 PM EDT 08/19/2024 3:13 PM EDT Kt Fan DO URINE ORDERABLES Final Resu lt [facility]
[address] [place] [address], * (ABNORMAL) CBC Auto Differential (08/19/2024 3:02 PM EDT) WBC 9.19 3.40 - 10.80 10*3/mm3 08/19/2024 3:23 PM EDT [facility] RBC 3.58(L) 3.77 - 5.28 10*6/mm3 08/19/2024 3:23 PM EDT [facility] Hemoglobin 10.5(L) 12.0 - 15.9 g/dL 08/19/2024 3:23 PM EDT [facility] Hematocrit 31.4(L) 34.0 - 46.6 % 08/19/2024 3:23 PM EDT [facility] MCV 87.7 79.0 - 97.0 fL 08/19/2024 3:23 PM EDT [facility] MCH 29.3 26.6 - 33.0 pg 08/19/2024 3:23 PM EDT [facility] MCHC 33.4 31.5 - 35.7 g/dL 08/19/2024 3:23 PM EDT [facility] RDW 13.4 12.3 - 15.4 % 08/19/2024 3:23 PM EDT [facility] RDW-SD 42.4 37.0 - 54.0 fl 08/19/2024 3:23 PM EDT [facility] MPV 12.0 6.0 - 12.0 fL 08/19/2024 3:23 PM EDT [facility] Platelets 241 140 - 450 10*3/mm3 08/19/2024 3:23 PM EDT [facility] Neutrophil % 66.8 42.7 - 76.0 % 08/19/2024 3:23 PM EDT [facility] Lymphocyte % 24.4 19.6 - 45.3 % 08/19/2024 3:23 PM EDT [facility] Monocyte % 7.6 5.0 - 12.0 % 08/19/2024 3:23 PM EDT [facility] Eosinophil % 0.7 0.3 - 6.2 % 08/19/2024 3:23 PM EDT [facility] Basophil % 0.2 0.0 - 1.5 % 08/19/2024 3:23 PM EDT [facility] Immature Grans % 0.3 0.0 - 0.5 % 08/19/2024 3:23 PM EDT [facility] Neutrophils, Absolute 6.14 1.70 - 7.00 10*3/mm3 08/19/2024 3:23 PM EDT [facility] Lymphocytes, Absolute 2.24 0.70 - 3.10 10*3/mm3 08/19/2024 3:23 PM EDT [facility] Monocytes, Absolute 0.70 0.10 - 0.90 10*3/mm3 08/19/2024 3:23 PM EDT [facility] Eosinophils, Absolute 0.06 0.00 - 0.40 10*3/mm3 08/19/2024 3:23 PM EDT [facility] Basophils, Absolute 0.02 0.00 - 0.20 10*3/mm3 08/19/2024 3:23 PM T [facility] Immature Grans, Absolute 0.03 0.00 - 0.05 10*3/mm3 08/19/2024 3:23 PM EDT [facility] nRBC 0.0 0.0 - 0.2 /100 WBC 08/19/2024 3:23 PM [facility] Blood Line / Unknown 08/19/2024 3: 02 PM EDT 08/19/2024 3:10 PM EDT Kt Fan DO LAB BLOOD ORDERABLES Final Result Performing Organization Address City/[facility]/ZIP Co de Phone Number [facility]
[address] [place] [address], [place] [phone] * Protein / Creatinine Ratio, Urine - [...] Fan DO URINE ORDERABLES Final Resu lt [facility]
[address] [place] [address], [place] [phone] * Type & Screen (08/19/2024 3:02 PM EDT) ABO Type O 08/19/2024 3:51 PM EDT [facility] LABOR[facility] RH type Positive 08/19/2024 3:51 PM EDT [facility] Antibody Screen Negative 08/19/2024 3:51 PM EDT [facility] T&S Expiration Date 08/22/2024 11:59:59 PM 08/19/2024 3:51 PM EDT [facility] Blood Line / Unknown 08/19/2024 3: 02 PM EDT 08/19/2024 3:15 PM EDT us Kt Cavazos Mita SHAH BLOOD BANK TEST ORDERABLES Edited Result - Final Performing Organization Address [facility] de Phone Number [facility]
[address] [place] [address], [place] [phone] * (ABNORMAL) Magnesium (08/19/2024 3:02 PM EDT) Magnesium 1.5(L) 1.6 - 2.6 mg/dL 08/19/2024 5:12 PM EDT [facility] Blood Line / Unknown 08/19/2024 3: 02 PM EDT 08/19/2024 3:10 PM EDT us Kt Fan DO LAB BLOOD ORDERABLES Final Result Performing Organization Address [facility] Phone Number [facility]
[address] [place] [address], [place] [phone] * Lipase (08/19/2024 3:02 PM EDT) Lipase 13 13 - 60 U/L 08/19/2024 3:36 PM EDT [facility] Blood Line / Unknown 08/19/2024 3: 02 PM EDT 08/19/2024 3:10 PM EDT us Kt Cavazos Mita SHAH LAB BLOOD ORDERABLES Final Result Performing Organization Address [facility] Co de Phone Number [facility]
[address] [place] [address], [place] [phone] * Amylase (08/19/2024 3:02 PM EDT) Amylase 73 28 - 100 U/L 08/19/2024 3:36 PM EDT [facility] Blood Line / Unknown 08/19/2024 3: 02 PM EDT 08/19/2024 3:10 PM EDT us Kt Fan DO LAB BLOOD ORDERABLES Final Result [facility]
[address] [place] [address], * [place] Ob 14 + Weeks Single or First Gestation (07/05/2024 10:17 AM EDT) Anatomical Region Laterality Modality Body Ultrasound 07/05/2024 10:2 8 AM EDT Narrative 07/09/2024 7:02 PM EDT PAT NAME: CAROLE GIRARD MED REC#: [id number] DA: [id number] PAT GEND: F PAT TYPE: O EXAM TRAVIS: [id number] REF PHYS URIEL RUSS Shell Plater Comments Still need heart views and PCI [...] EFW (oz) 9 oz EFW by: Hadlock ([id number]-OO-TE-FL) Extended Scale Model Maker 6.4 mm CM 3.3 mm 11% Nicolaides [...] Heart / Thorax 3-vessel view: not visualized 9-rhlgee-mjrfksl view: not visualized Diaphragm: Appears normal Diaphragm: [...] subsequent visit to complete the anatomic screening. Shell Plater: Soo Harding RDMS Physician: Uriel Russ II, MD, FACOG Electronically signed by: Uriel Russ II, MD, FACOG at: 19:02 Procedure Note Uriel Russ MD - 07/09/2024 PAT NAME: CAROLE GIRARD MED REC#: [id number] DA: [id number] PAT GEND: F PAT TYPE: O EXAM TRAVIS: [id number] REF PHYS URIEL RUSS Shell Plater Comments Still need heart views and PCI [...] 67% Hadlock HC / AC1.13 20% Hadlock HRD754 g 18w 6d 56% Hadlock EFW (lb)0 lb EFW (oz)9 oz EFW by:Hadlock (MOK-ML-QK-FL) Extended Vp6.4 mm CM3.3 mm 11% Nicolaides Extremities / Bony Struc FL / BPD0.80 >99% Hadlock FL / HC0.20 98% Hadlock FL / AC0.23 89% Hadlock Other Structures [id number] bpm Anatomy Cranium:Appears normal Lateral ventricles:Appears normal Choroid plexus:Appears normal Midline falx:Appears normal Cavum septi pellucidi:Appears normal Cerebellum:Appears normal Cisterna magna:Appears normal Lips:suboptimal Profile:Appears normal Nose:suboptimal 4-chamber view:not visualized RVOT view:not visualized LVOT view:not visualized Heart / Thorax 3-vessel view:not visualized 5-uapqsx-kqbgeyv view:not visualized Diaphragm:Appears normal Diaphragm:Intact Cord insertion:Appears [...] Structures Uterus / Cervix Uterus:Visualized Cervix:Visualized Cervical xvmbfa62.6 mm Ovaries / Tubes / Adnexa Rt [...] a subsequent visit tocomplete the anatomic screening. Shell Plater: Soo Harding RDMS Physician: Uriel Russ II, MD, FACOG Electronically signed by: Uriel Russ II, MD, FACOG at: 9:02 us Uriel Russ MD [facility] [place] ORDER[place] Final Result * Urine Culture [...] / Unknown 07/05/2024 07/05/2024 Comment:[facility] - 07/07/2024 3:35 AM EDT Performed at: [address] [place] [id number] Exhaust Emissions Inspector: Michael Martinez PhD, Phone: [phone] us Kelly Delgado APRN MICROBIOLOGY - GENERAL ORDER [place]AN[place] Final Result [facility] [address] [place] [address], [facility] [address] [place] [address], * Tryptase (06/25/2024 4:34 PM EDT) Tryptase 6.1 2.2 - 13.2 ug/L [facility] Blood 06/25/2024 4:34 PM EDT 06/25/2024 Narrative [facility] (AMBULATORY) - 06/28/2024 9:10 AM EDT Performed at: 01 - [address] [id number] Exhaust Emissions Inspector: Fang Yu MD, Phone: [phone] Uriel Russ MD LAB BLOOD ORDERABLES Final Resu lt [facility] [address] [place] [address], [facility] [address] [place] [address], * Vitamin D,25-Hydroxy (06/25/2024 4:34 PM EDT) 25 Hydroxy, Vitamin D 33.7 30.0 - 100.0 ng/mL [facility] Comment: Vitamin D deficiency has been defined by the [place] [employer] and an Endocrine Society practice guideline as a level of serum 25-OH vitamin D less than 20 ng/mL (1,2). The Endocrine Society went on to further define vitamin D insufficiency as a level between 21 and 29 ng/mL (2). 1. IOM ([place] of Medicine). 2010. Dietary reference intakes for calcium and D. [place]: The National Academies Press. 2. Halle MF, [place] MEHTA, Wade MITCHELL, et al. Evaluation, treatment, and prevention of vitamin D deficiency: an Endocrine Society clinical practice guideline. JCEM. 2010; 96(7):1911-30. Blood 06/25/2024 4:34 PM EDT 06/25/2024 Narrative [facility] (AMBULATORY) - 06/26/2024 7:37 AM EDT Performed at: [address] [place] [id number] Exhaust Emissions Inspector: Michael Martinez PhD, Phone: [phone] us Uriel Russ MD LAB BLOOD ORDERABLES Final Resu lt Performing Organization Address [facility] Co de Phone Number [facility] [address] [place] [address], [facility] [address] [place] [address], * TSH (06/25/2024 4:34 PM EDT) TSH 0.593 0.450 - 4.500 uIU/mL [facility] Blood 06/25/2024 4:34 PM EDT 06/25/2024 Narrative [facility] (AM[facility]) - 06/26/2024 7:37 AM EDT Performed at: [address] [id number] Exhaust Emissions Inspector: Michael Martinez PhD, Phone: [phone] us Uriel Russ MD LAB BLOOD ORDERABLES Final Resu lt Performing Organization Address [facility] de Phone Number [facility] [address] [place] [address], [facility] [address] [place] [address], * T4, Free (06/25/2024 4:34 PM EDT) Free T4 1.09 0.82 - 1.77 ng/dL [facility] Blood 06/25/2024 4:34 PM EDT 06/25/2024 Narrative [facility] ([facility]) - 06/26/2024 7:37 AM EDT Performed at: 01 - [facility] [address] [place], [place] [id number] Exhaust Emissions Inspector: Michael Martinez PhD, Phone: [phone] us Uriel Russ MD LAB BLOOD ORDERABLES Final Resu lt [facility] [address] [place] [address], [place] [phone] [facility] [address] [place] [address], * (ABNORMAL) Hemoglobin A1c (06/25/2024 4:34 PM EDT) Hemoglobin A1C 4.7(L) 4.8 - 5.6 % [facility] Comment: Prediabetes: 5.7 - 6.4 Diabetes: >6.4 Glycemic control for adults with diabetes: <7.0 Blood 06/25/2024 4:34 PM EDT 06/25/2024 Narrative [facility] (AMBULATORY) - 06/26/2024 4:35 AM EDT Performed at: - [facility] [address] [place], [place] [id number] Exhaust Emissions Inspector: Michael Martinez PhD, Phone: [phone] us Uriel Russ MD LAB BLOOD ORDERABLES Final Resu lt Performing Organization Address City/[facility]/ZIP Co de Phone Number [facility] [address] [place] [address], [place] [phone] [facility] [address] [place] [address], [place] [phone] * (ABNORMAL) Lipid Panel (06/25/2024 4:34 PM EDT) Total Cholesterol 203(H) 100 - 199 mg/dL [facility] Triglycerides 125 0 - 149 mg/dL [facility] HDL Cholesterol 52 >39 mg/dL [facility] VLDL Cholesterol Rom 22 5 - 40 mg/dL [facility] LDL Chol Calc (NIH) 129(H) 0 - 99 mg/dL [facility] Blood 06/25/2024 4:34 PM EDT 06/25/2024 Narrative [facility] (AMBULATORY) - 06/26/2024 6:36 AM EDT Performed at: 01 - [facility] [address] [facility], [place], [place] [id number] Exhaust Emissions Inspector: Michael Martinez PhD, Phone: [phone] us Uriel Russ MD LAB BLOOD ORDERABLES Final Resu lt [facility] (AMBULATORY) [address] [place] [address], [facility] [address] [place] [address], * US Ob Limited 1 + Fetuses (06/25/2024 3:10 PM EDT) Anatomical Region Laterality Modality Body Ultrasound 06/25/2024 3:54 PM EDT Narrative 06/26/2024 1:34 PM EDT PAT NAME: CAROLE GIRARD MED REC#: [id number] DA: [id number] PAT GEND: F PAT TYPE: O EXAM TRAVIS: [id number] REF PHYS URIEL RUSS Indication ======== Heart [...] clinically indicated for the condition being monitored. Shell Plater: RT Annetta Bruno, [facility] Physician: Uriel Russ II, MD, FACOG Electronically signed by: Uriel Russ II, MD, FACOG at: 13:34 Procedure Note Uriel Russ MD - 06/26/2024 PAT NAME: CAROLE GIRARD MED REC#: [id number] DA: 1990 PAT GEND: F PAT TYPE: O EXAM TRAVIS: [id number] REF PHYS URIEL RUSS Indication ======== Heart Tones Comparison Studies The findings of this study are compared to the prior ultrasound studydated 05/27/2024 Method ======= Transabdominal ultrasound examination. View: Suboptimal view: limited byfetal position ========= Love . Number of fetuses: 1 Dating ====== Method of dating:based on stated DUSTY GA by prior [id number] w + 2 d DUSTY by prior [...] cm. Maternal Structures Uterus / Cervix Cervical meptln72.1 mm Impression heart tones 150. 17 weeks 2 days. EDC 12/01/2024. Single fetus.Cervical length 33 mm. Recommendation Follow-up scan as clinically indicated for the condition beingmonitored. Shell Plater: RT Annetta Bruno, [facility] Physician: Uriel Russ II, MD, FACOG Electronically signed by: Uriel Russ II, MD, FACOG at: :34 Uriel Russ MD [facility] [place] ORDERABLES Final Result * Hepatitis C Antibody (04/12/2024) Hep C Virus Ab negative Blood Historical Provider LAB BLOOD ORDERABLES Lena l Result from Last 3 Months or Most Recently Relevant to Health Maintenance Insurance [facility] [facility] Care Teams Pulmonary Care Nurse Relationship Specialty Start Date End Date Norma Friedman APRN [address] [place] [address] [place] [address] PCP - General Family Medicine 05/14/24
--- OUTSIDE RECORDS SUMMARY | 2024-09-19 11:27 | XMS_ITS | Encounter Summary ---
Author Organization Healthcare Address [address] [place] [address] Care Team Providers Care Sand Worker Name Role Phone Unavailable Primary Care Provider Unavailabl e Encounter Details Date Type Department Care Team ([facility] Contact Info) Description 09/17/2024 Telephone [facility] [place] Nephrology, Bone & Mineral Metabolism [address] [facility], [address] [place] [address] Sherley Gold, PIGS FEET FINISHER GS - 7 MAIN MEDICAL-SURGICAL Social History Tobacco Use Types Packs/Day Years [...] encounter Miscellaneous Notes * Telephone Encounter - Sherley Gold - 09/17/2024 3:06 PM EDT 09/17/24 called pt no answer left Vm about dr serraAR} documented in this encounter Plan of Treatment Upcoming Encounters Date Type Department Care Team ([facility] Contact Info) Description 09/23/2024 10:00 AM EDT Office Visit Medical Office Building Obstetrics and Gynecology [address] [facility], [address] [place] [address] Liborio Weller MD [address] [facility] [address] [place] [address] 09/25/2024 2:20 PM EDT Office Visit [facility] [place] [facility] Nephrology, Bone & Mineral Metabolism [address] [facility], [address] [place] [address] documented as of this encounter Visit Diagnoses Not on filedocumented in this encounter
--- OUTSIDE RECORDS SUMMARY | 2024-09-19 11:27 | XMS_ITS | Encounter Summary ---
Author Organization [employer] [place] Address [address] [place] [address] Care Team Providers Care Salesperson Furs Name Role Phone Unavailable Primary Care Provider Unavailabl e Encounter Details Date Type Department Care Team (Late st Contact Info) Description 07/17/2019 Transcribed Document [facility] [address] [place] [address] ProviderEleno MD [address] [place], [place] [address] Social History Tobacco Use Types Packs/Day Years [...] On: 07/17/2019 19:17 EDT by KARLENE MCKINLEY evaluation specialist Process Patient Disposition : AMA/Elope/LWBS KARLENE MCKINLEY [...]
--- OUTSIDE RECORDS SUMMARY | 2024-09-19 11:27 | XMS_ITS | Encounter Summary ---
[facility] Address [address] [place] [id number] Care Team Providers Care Fuel Efficient Aircraft Designer Name Role Phone IvyKade goldbergjoseseven JOLENE Primary Care Provider + [phone] Encounter Details Date Type Department Care Team (Late st Contact Info) Description 07/25/2024 Patient Outreach [facility] DEL[facility] [address] [place] [address] Christy Zabala, RN Social History Tobacco Use Types Packs/Day Years Used Date Smoking Tobacco: Never Smokeless Tobacco: Never Alcohol Use Standard Drinks/Week Comments Never 0 (1 standard drink = 0.6 oz pur e alcohol) [facility] Utilities Answer Date [...] Not hard at all 05/28/2024 [facility] of Occupat ional Health - Occupational Stress [...] [facility] GASTROENTEROLOGY [address] [address] Robbin Escalante MD [address] [place] [address] documented as of this encounter Visit Diagnoses Not on filedocumented in this encounter Additional Health Concerns Assessment Noted Time PHQ-2 Depression Total Score: 2 05/28/19 25 4:39 PM EDT documented as of this encounter Care Teams Fuel Efficient Aircraft Designer Relationship Specialty Start Date End Date Norma Friedman APRN [address] [place] [address] [place] [address] PCP - General Family Medicine 05/14/24 documented as of this encounter
--- OUTSIDE RECORDS SUMMARY | 2024-09-19 11:27 | XMS_ITS | Clinical Summary ---
Author Organization [facility] Address [address] [place] [address] Care Team Providers Care Podopediatrician Name Role Phone Unavailable Primary Care Provider Unavailabl e Source Comments [facility] is fully rolled out with thefollowing exceptions:General Clinical Research [facility] Social History Tobacco Use Types Packs/Day [...] - 3-dose SCDM series) 2018 COVID-19 Vaccine ( - 2023-2 5 season) 2023 AMB SEASONAL FLU VACCINE [...]
--- OUTSIDE RECORDS SUMMARY | 2024-09-19 11:27 | XMS_ITS | Encounter Summary ---
[facility] Address [address] [place] [id number] Care Team Providers Care Certified Court/Medical Interpreter Name Role Phone Elder Norma FERNÁNDEZ Primary Care Provider + [phone] Encounter Details Date Type Department Care Team (Late st Contact Info) Description 07/07/2024 Results Follow-Up [facility] OBGYN [address] [place] [address] [place] [phone] Kelly Delgado APRN [address] [facility] [address] [place] [address] Social History Tobacco Use Types Packs/Day Years Used Date Smoking Tobacco: Never Smokeless Tobacco: Never Alcohol Use Standard Drinks/Week Comments Never 0 (1 standard drink = 0.6 oz pur e alcohol) [facility] Utilities Answer Date Recorded In the past 12 months has [employer], gas, oil, or water [employer] threatened to shut off services in [...] and heating? Not hard at all 05/28/2024 [facility] of Occupat ional Health - Occupational Stress [...] Office Visit [facility] GASTROENTEROLOGY [address] [facility] [address] Robbin Escalante MD [address] [address] documented as of this encounter Visit Diagnoses Not on filedocumented in this encounter Additional Health Concerns Assessment Noted Time PHQ-2 Depression Total Score: 2 05/28/19 25 4:39 PM EDT documented as of this encounter Care Teams Certified Court/Medical Interpreter Relationship Specialty Start Date End Date Norma Friedman APRN [address] [place] [address] [place] [address] PCP - General Family Medicine 05/14/24 documented as of this encounter
--- OUTSIDE RECORDS SUMMARY | 2024-09-19 11:28 | XMS_ITS | Encounter Summary ---
[facility] [address] [place] [phone] Care Team Providers Care Pharmaceutical Plant Operator Name Role Phone Ivyashlyn Norma FERNÁNDEZ Primary Care Provider + [phone] Encounter Details Date Type Department Care Team (Late st Contact Info) Description 09/02/2024 Telephone [facility] [address] [address] Staci Jain MD [address] [place] [id number] Social History Tobacco Use Types Packs/Day Years Used Date Smoking Tobacco: Never Smokeless Tobacco: Never Alcohol Use Standard Drinks/Week Comments Never 0 (1 standard drink = 0.6 oz pur e alcohol) [facility] Utilities Answer Date Recorded In the past 12 months has [employer], [employer], oil, or water [employer] threatened to shut off services in your [...] GED or equivalent No 05/28/2024 Preferred Language Syriac 05/28/2024 PHQ-2 Answer Date Recorded Patient Health [...] PM EDT She just got d/c'd from [facility] 2 hours ago and they gave her a total 10 MLE of K+ and 3 units of Mag and 2 liters of LR. She has decided to transfer care to [facility] as it iscloser to her like 15 min away. She wants you (Dr. Jain) to know this has nothing to you but rather the nurses and manager utilization doctor did not relay the labs to you in a faster fashion. She said you can call her if you want and she is not angry. Dr. Jain was notified. * Telephone Encounter - Frederick Gruber RN - 09/02/2024 3:10 PM EDT Twibingot message sent to the pt regarding outpt infusion apt tomorrow at [facility]. documented in this encounter Plan of Treatment Upcoming Encounters Date Type Department Care Team (Late st Contact Info) Description 01/20/2025 3:30 PM EST Office Visit [facility] GA[facility]OLOGY [address] [address] [place] [address] Robbin Escalante MD [address] [facility] [facility] [address] [place] [address] documented as of this encounter Visit Diagnoses Not on filedocumented in this encounter Additional Health Concerns Assessment Noted Time PHQ-2 Depression Total Score: 2 05/28/19 25 4:39 PM EDT documented as of this encounter Care Teams Pharmaceutical Plant Operator Relationship Specialty Start Date End Date Norma Friedman APRN [address] [place] [address] [place] [address] PCP - General Family Medicine 05/14/24 documented as of this encounter
--- OUTSIDE RECORDS SUMMARY | 2024-09-19 11:28 | XMS_ITS | Encounter Summary ---
Author Organization Healthcare Address [address] [place] [id number] Care Team Providers Care Cargo Trimmer Name Role Phone Unavailable Primary Care Provider Unavailabl e Reason for Referral * Consultation (Routine) - Authorized Specialty Diagnoses / Procedures Referred By Contac t Referred To Contact Nephrology Diagnoses History of proteinuria syndrome care, subsequent , second trimester Staci Jain MD [address] [address] Phone: tel: fax: [facility] Nephrology, Bone & Mineral Metabolism [address] [facility], [address] [place] [address] Phone: tel: fax: Referral ID Status Reason Start Date Expiration Date Visits Requested Visits Authorized [id number] Authorized Specialty Services Required 07/22/2024 01/21/2026 1 1 Encounter Details Date Type Department Care Team (Late st Contact Info) Description 07/22/2024 Community [facility] Community Practice [address] [place] [address] [place] [address] [place] [address] History of proteinuria syndrome (Primary Dx); care, [...] Upcoming Encounters Date Type Department Care Team ([facility] st Contact Info) Description 09/23/2024 10:00 AM EDT Office Visit Medical Office Building Obstetrics and Gynecology [address] [facility], [address] [place] [address] Liborio Weller MD [address] [facility] [address] [place] [address] 09/25/2024 2:20 PM EDT Office [facility] Nephrology, Bone & Mineral Metabolism [address] [facility], [address] [place] [address] Scheduled Referrals Name Type Priority Associated Diagnoses Orde r Schedule Ambulatory referral to Nephrology Outpatient Referral Routine History of proteinuria syndrome care, subsequent , second trimester Expected: 07/22/2024 (Approximate), Expires: 01/23/2026 documented as of this encounter Visit Diagnoses Diagnosis History of proteinuria syndrome- Primary care, subsequent , second trimester documented in this encounter
--- OUTSIDE RECORDS SUMMARY | 2024-09-19 11:28 | XMS_ITS | Encounter Summary ---
[facility] Organization [facility] Address [address] [place] [phone] Care Team Providers Care Feller Machine Operator Name Role Phone IvyKade goldbergjoseseven JOLENE Primary Care Provider + [phone] Encounter Details Date Type Department Care Team (Late st Contact Info) Description 09/03/2024 Results Follow-Up [facility] OBGYN [address] [place] [address] Staci Jain MD [address] [facility] [address] [place] [address] Social History Tobacco Use Types Packs/Day Years Used Date Smoking Tobacco: Never Smokeless Tobacco: Never Alcohol Use Standard Drinks/Week Comments Never 0 (1 standard drink = 0.6 oz pur e alcohol) [facility] Utilities Answer Date Recorded In the past 12 months has [employer], gas, oil, or water [employer] threatened to shut off services in your [...] GED or equivalent No 05/28/2024 Preferred Language Romansh 05/28/2024 PHQ-2 Answer Date Recorded Patient Health [...] Office Visit [facility] GASTROENTEROLOGY [address] [address] Robbin Escalante MD [address] [address] documented as of this encounter Visit Diagnoses Not on filedocumented in this encounter Additional Health Concerns Assessment Noted Time PHQ-2 Depression Total Score: 2 05/28/19 4:39 PM EDT documented as of this encounter Care Teams Feller Machine Operator Relationship Specialty Start Date End Date Norma Friedman APRN [address] [place] [address] [place] [address] PCP - General Family Medicine 05/14/24 documented as of this encounter
--- OUTSIDE RECORDS SUMMARY | 2024-09-19 11:28 | XMS_ITS | Encounter Summary ---
Author Organization Healthcare Address [address] [place] [phone] Care Team Providers Care Relay Assembler Name Role Phone Unavailable Primary Care Provider Unavailabl e Encounter Details Date Type Department Care Team ([facility] st Contact Info) Description 09/17/2024 Telephone Medical Office Building Obstetrics and Gynecology [address] [facility], [address] [place] [address] Josefina Shay, RN AMB-GS [facility] [address] [place] [address] Social History Tobacco Use Types Packs/Day Years [...] encounter Miscellaneous Notes * Telephone Encounter - Josefina Shay RN - 09/17/2024 10:17 AM EDT ----- Message from Susi Wren MD sent at 09/14/2024 11:09 PM EDT ----- Regarding: Appointment with Dr. Weller Hi there, Ms. Presley is a patient who's home OB had reached out to Dr. Weller this past Monday for recurring severe hypokalemia. At that time, Dr. Weller recommended that she come to OB ED for repeat labs andfor possible repeat nephrology workup with [facility]. Patient ended up not presenting because she was apparently feeling too ill. Today (Monday) she called L&D to inquire about whether she should still present. We recommended that if patient was symptomatic in any way that she should. Patient however recently had a full Nephrology work-up at [facility] that was negative and was not interested in repeating this. She explained that her symptoms were stable, and that the whole reason she was coming up to was to talk withDr. Weller about management options. As such, she did not want to come to OB ED if Dr. Weller wasnot going to be there as she was already set up for labs/potassium infusion today with her home OB. I imagine Dr. Weller's schedule is full as always this Monday, but wanted to see if he would be willing to add her on. We told her that someone from clinic would call her on Monday morning to give her an update. Thank you, [facility] documented in this encounter Plan of Treatment Upcoming Encounters Date Type Department Care Team (Late st Contact Info) Description 09/23/2024 10:00 AM EDT Office Visit Medical Office Building Obstetrics and Gynecology [address] [facility], [address] [place] [address] Liborio Weller MD [address] [facility] [address] [place] [address] 09/25/2024 2:20 PM EDT Office Visit [facility] [employer] [place] Nephrology, Bone & Mineral Metabolism [address] [facility], [address] [place] [address] documented as of this encounter Visit Diagnoses Not on filedocumented in this encounter
--- OUTSIDE RECORDS SUMMARY | 2024-09-19 11:28 | XMS_ITS | Encounter Summary ---
Author Organization Healthcare Address [address] [place] [address] Care Team Providers Care Diamond Polisher Name Role Phone Unavailable Primary Care Provider Unavailabl e Reason for Referral * Consultation (Routine) - Authorized Specialty Diagnoses / Procedures Referred By Contac t Referred To Contact Nephrology Diagnoses Hypokalemia Liborio Weller MD [address] [facility] [address] [place] [address] Phone: tel: fax: [facility] Nephrology, Bone & Mineral Metabolism [address] [facility], [address] [place] [address] Phone: tel: fax: Referral ID Status Reason Start Date Expiration Date Visits Requested Visits Authorized [id number] Authorized Specialty Services Required 09/14/2024 03/16/2026 1 1 Scheduling Instructions Severe hypokalemia in the setting of Encounter Details Date Type Department Care Team (Late st Contact Info) Description 09/14/2024 Telephone [facility] Obstetrics & Gynecology [address] [place] [address] Susi Wren MD [address] [place] [address] Social History Tobacco Use Types Packs/Day [...] had an outpatient workup with Nephrology at [facility] that was negative, she was not amenable [...] Office Building Obstetrics and Gynecology [address] [facility], [address] [place] [address] Liborio Weller MD [address] [place] [address] 09/25/2024 2:20 PM EDT Office Visit [facility] Nephrology, Bone & Mineral Metabolism [address] [facility], [address] [place] [address] Scheduled Referrals Name Type Priority Associated Diagnoses Order Schedule Ambulatory referral to Nephrology Clinic Outpatient Referral Routine Hypokalemia 1 Occurrences starting 09/14/2024 until 03/18/2026 documented as of this encounter Visit Diagnoses Diagnosis Hypokalemia- Primary Hypopotassemia documented in this encounter
--- OUTSIDE RECORDS SUMMARY | 2024-09-19 11:28 | XMS_ITS | Encounter Summary ---
Author Organization Healthcare Address [address] [place] [address] Care Team Providers Care Switch Inspector Name Role Phone Unavailable Primary Care Provider Unavailabl e Encounter Details Date Type Department Care Team (Late Contact Info) Description 07/22/2024 Community Orders Community Practice [address] [place] [address] Sandy Cardenas MD [address] [facility] [address] [place] [address] Social History Tobacco Use Types Packs/Day Years [...] Encounters Date Type Department Care Team (Late Contact Info) Description 09/23/2024 10:00 AM EDT Office Visit Medical Office Building Obstetrics and Gynecology [address] [facility], [address] [place] [address] Liborio Weller MD [address] [facility] [address] [place] [address] 09/25/2024 2:20 PM EDT Office Visit [facility] [employer] [facility] Nephrology, Bone & Mineral Metabolism [address] [facility], [address] [place] [address] documented as of this encounter Visit Diagnoses Not on filedocumented in this encounter
--- OUTSIDE RECORDS SUMMARY | 2024-09-19 11:28 | XMS_ITS | Clinical Summary ---
Author Organization Healthcare Address [address] [place] [id number] Care Team Providers Care Willow Worker Name Role Phone Unavailable Primary Care Provider Unavailabl e Encounters Date Type Department Care Team Description 09/17/2024 Telephone [facility] Nephrology, Bone & Mineral Metabolism [address], [address] [place] [address] Sherley Gold CNA 09/17/2024 Telephone Medical Office Building Obstetrics and Gynecology [address], [address] [place] [address] Josefina Shay RN 09/14/2024 Telephone [facility] Obstetrics & Gynecology [address] [place] [address] Susi Wren MD 07/22/2024 [facility] [address] [place] [address] Staci Jain MD History of proteinuria syndrome (Primary Dx); care, subsequent , second trimester 07/22/2024 [facility] [address] [place] [address] Sandy Cardenas MD from Last 3 Months [...] 03/21/2019 9:57 AM EST Plan of Treatment Upcoming Encounters Date Type Department Care Team (Late st Contact Info) Description 09/23/2024 10:00 AM EDT Office Visit Medical Office Building Obstetrics and Gynecology [address], [address] [place] [address] Liborio Weller MD [address] [place] [address] 09/25/2024 2:20 PM EDT Office Visit [facility] Nephrology, Bone & Mineral Metabolism [address], [address] [place] [address] Health Maintenance Due Date Last Done Comments [facility]-Depression Screening 1991 [facility]-/Child/Adol SDOH Screenings 1991 [facility]-Varicella Vaccines (1 of 2 - 13+ 2-dose series) 2004 [facility]- SDOH Screenings 2009 [facility]-Adult SDOH Screenings 2009 [facility]-Hepatitis B Vaccines (1 of 3 - 19+ 3-dose series) 2010 [facility]-Pap Smear 2012 [facility]-Cervical Cancer Screening 2021 [facility]-HPV/Cotest 2021 [facility]-XFNQX-05 Vaccine (2 - season) 2023 05/04/2022 [facility]-Influenza Vaccine (#1) 2024 03/30/2016, [facility]-DTaP,Tdap,and Td Vaccines (8 - Td or Tdap) 09/09/2034 09/09/2024, 06/01/2022, 10/03/2020, Additional history exists [facility]-Zoster Vaccines (1 of [...] AM EST 01/22/2019 12:12 PM EST Pradip M Damico ENCHILADA MAKER, CNM LAB BLOOD ORDERABLES Fin al Result SUNQUEST * Hepatitis C Antibody (01/22/2019 9:57 AM EST) Hepatitis C Antibody NEGATIVE Reference Range: Negative SUNQUEST 01/22/2019 9:57 AM EST 01/22/2019 12:12 PM EST Pradip Damico APRN, CNM LAB BLOOD ORDERABLES Fin al Result Performing Organization Address City/[facility] Co de Phone Number SUNQUEST from Last 3 Months or Most Recently Relevant to Health Maintenance Insurance [employer]ICA[employer]
[2024-09-19 12:53] LABS: Hematocrit 33.5 % (37.0-47.0); Hemoglobin 11.0 g/dL (12.2-16.2); Immature Granulocytes % 0.4 %; Mean Corpuscular HGB Conc 32.8 g/dL (31.8-35.4); Mean Corpuscular Hemoglobin 28.6 pg (27.0-31.2); Mean Corpuscular Volume 87.2 fl (81-99); Nucleated Red Blood Cells % 0 %; Platelet Count 254 K/mm3 (142-424); Red Blood Count 3.84 M/mm3 (4.20-5.40); Red Cell Distribution Width-SD 46.7 fL; White Blood Count 9.8 K/mm3 (4.8-10.8)
[2024-09-19 13:07] LABS: Chloride 98 mmol/L (98-107); Sodium 134 mmol/L (136-145)
[2024-09-19 13:10] LABS: Alanine Aminotransferase 25 U/L (12-78); Alkaline Phosphatase 85 U/L (38-126); Aspartate Amino Transferase 41 U/L (14-36); Bilirubin,Total 0.7 mg/dl (0.2-1.3); Blood Urea Nitrogen 4 mg/dl (7-17); Creatinine,Serum 0.60 mg/dl (0.52-1.04); Estimated Glomerular Filt Rate 115 ml/min (>60); GFR (African American) 139 ML/MIN (>60); Total Protein,Serum 7.5 g/dl (6.3-8.2)
[2024-09-19 13:11] LABS: Calcium 9.1 mg/dl (8.4-10.2); Glucose 121 mg/dl (74-100); Glucose 1 Hour 121 mg/dL (74-100)
[2024-09-19 13:16] LABS: Potassium 2.8 mmoL/L (3.5-5.1)
[2024-09-19 16:13] LABS: Anion Gap 11.8 mEq/L (5-15); Carbon Dioxide 27 mmol/L (22.0-30.0)
[2024-09-19 16:14] LABS: Albumin Level 3.9 g/dl (3.5-5.0); Albumin/Globulin Ratio 1.1 (1.1-1.8); Globulin 3.6 g/dL (1.3-3.2)
[2024-09-20 11:06] LABS: RPR W/RFX Titers Nonreactive (Nonreactive)
== END 2024-09-19 23:59 | disposition home or self-care (01) ==
LOC: LAB 11:24
PROVIDERS: PCP Nurse Practitioner Family; Visit Provider Nurse Practitioner Obstetrics & Gynecology
DX: O46.90 Antepartum hemorrhage, unspecified, unspecified trimester (principal); O21.9 Vomiting of pregnancy, unspecified; N96 Recurrent pregnancy loss; E83.42 Hypomagnesemia; E87.6 Hypokalemia
CPT/HCPCS: 36415; 80053; 82947; 85025; 86592

== ENCOUNTER 2024-09-19 16:05 | Observation (INO) | payer OTHER, SELFPAY ==
--- OUTSIDE RECORDS SUMMARY | 2024-07-22 07:44 | XMS_ITS | Encounter Summary ---
Author Organization [facility] Address [address] [place] [phone] Care Team Providers Care Consulting Networking Engineer Name Role Phone Norma Friedman APRN Primary Care Provider + [phone] Reason for Referral * Diagnostic Imaging (Routine) - Closed Specialty Diagnoses / Procedures Referred By Tarik pedersen Referred To Contact Radiology Diagnoses care, antepartum, unspecified High risk due to history of labor, antepartum History of prior with small for gestational age Procedures [facility] Kelly Watkins APRN [address] [facility] [address] [place] [address] Phone: tel: fax: [facility] US PER DIAG CTR [address] [place] [address] Phone: tel: Referral ID Status Reason Start Date Expiration Date Visits Re quested Visits Authorized [id number] Closed 07/08/2024 10/07/2025 1 1 Reason for Visit * Diagnostic Imaging (Routine) - Closed Specialty Diagnoses / Procedures Referred By Tarik t Referred To Contact Radiology Diagnoses care, antepartum, unspecified High risk due to history of labor, antepartum History of prior with small for gestational age Procedures [facility] Kelly Watkins APRN [address] [facility] [address] [place] [address] Phone: tel: fax: [facility] PER DIAG [facility] [address] [place] [address] Phone: tel: Referral ID Status Reason Start Date Expiration Date Visits Re quested Visits Authorized [id number] Closed 07/08/2024 10/07/2025 1 1 Encounter Details Date Type Department Care Team (Late st Contact Info) Description 07/22/2024 7:44 AM EDT - 07/22/2024 11:59 PM EDT Hospital Encounter [facility]AG [facility] [address] [place] [phone] Kelly Watkins, PERFORMING ARTS ROAD MANAGER [address] [place] [address] care, antepartum, unspecified ; High risk due to history of labor, antepartum; History of prior with small for gestational age Discharge Disposition: Home or Self Care Social History Tobacco Use Types Packs/Day Years Used Date Smoking Tobacco: Never Smokeless Tobacco: Never Alcohol Use Standard Drinks/Week Comments Never 0 (1 standard drink = 0.6 oz pur e alcohol) [facility] Utilities Answer Date Recorded In the past 12 months has [employer] electric, gas, oil, or water [employer] threatened to shut off services in your [...] and heating? Not hard at all 05/28/2024 [facility] [place] of Occupat ional Health - Occupational Stress [...] GED or equivalent No 05/28/2024 Preferred Language Swedish 05/28/2024 PHQ-2 Answer Date Recorded Patient Health [...] Description 01/20/2025 3:30 PM EST Office Visit [facility]STR[facility] [address] [address] Robbin Escalante MD [address] [address] documented as of this encounter Procedures Procedure Name Priority Date/Time Associated Diagnosis Comments [facility] Routine 07/22/2024 9:10 AM EDT care, antepartum, unspecified High risk due to history of labor, antepartum History of prior with small for gestational age documented in this encounter Results * [facility] (07/22/2024 9:10 AM EDT) Anatomical Region Laterality Modality Ultrasound 07/22/2024 8:20 AM EDT Narrative 07/22/2024 9:18 AM EDT PAT NAME: CAROLE GIRARD MED REC#: [id number] DA: 1990 PAT GEND: F PAT TYPE: O EXAM TRAVIS: [id number] REF PHYS KELLY WATKINS Comparison Studies There [...] EFW (oz) 13 oz EFW by: Hadlock (XPU-GU-ZF-FL) Extended Tibia 28.0 mm 20w 1d 17% Jamal Fibula 27.3 mm 19w 5d 17% Jamal Radius 26.9 mm 20w 0d 36% Jamal Ulna 30.0 mm 21w 1d 33% Jamal Cav. septi pel. tr 3.7 mm Bench Hand Machine 5.4 mm CM 4.7 mm 32% Nicolaides [...] normal IVC: normal 3-vessel view: Appears normal 9-wbvmjg-ydwtosk view: Appears normal Rt lung: Appears normal [...] Follow-up as clinically indicated. Coding ======= Description: 15613-35 Detailed [employer] Manager: Cheyenne Spence RDMS Physician: Sebastian Larsen MD, FACOG Electronically signed by: Sebastian Larsen MD, FACOG at: 09:18 Procedure Note Sebastian Larsen MD - 07/22/2024 PAT NAME: CAROLE GIRARD MED REC#: [id number] DA: [id number] PAT GEND: F PAT TYPE: O EXAM TRAVIS: [id number] REF PHYS KELLY WATKINS Comparison Studies There are no relevant prior studies to which this study is beingcompared Patient Status Outpatient Indication ======== Incomplete anatomy, previous SGA, hx c/s x1 Maternal Assessment Smsssd284 cm Height (ft)5 ft Height (in)4 in Hhmeye80 kg Weight (lb)163 lb BMI28.17 kg/m Method ======= Transabdominal ultrasound examination ========= Love . Number of fetuses: 1 Dating ====== Method of dating:based on stated DUSTY GA by prior czvvmvlikf92 w + 1 d DUSTY by prior assessment:12/01/2024 Ultrasound examination on:07/22/2024 GA by U/S based upon:AC, BPD, Femur, HC GA by U/S20 w + 5 d DUSTY by U/S:12/04/2024 Previous dating:based on stated DUSTY, selected on 07/05/2024 Agreed DUSTY of previous datin12/01/2024 Assigned:based on stated DUSTY, selected on 07/22/2024 Assigned GA21 w + 1 d Assigned DUSTY:12/01/2024 zgtpsy522 d Biometry Standard BPD47.5 mm 20w 3d 19% Hadlock OFD63.7 mm 21w 5d 69% Jamal HC177.8 mm 20w 2d 9% Hadlock Cerebellum tr22.0 mm 20w 4d 46% Hill AC160.4 mm 21w 1d 43% Hadlock Femur33.9 mm 20w 5d 24% Hadlock Degcthb87.7 mm 21w 0d 40% Jamal HC / AC1.11 BYT215 g 20w 5d 29% Hadlock EFW (lb)0 lb EFW (oz)13 oz EFW by:Hadlock (BMJ-CL-LQ-FL) Extended Tibia28.0 mm 20w 1d 17% Jamal Abtalz46.3 mm 19w 5d 17% Jamal Hgohpm22.9 mm 20w 0d 36% Jamal Ulna30.0 mm 21w 1d 33% Jamal Cav. septi pel. tr3.7 mm Vp5.4 mm CM4.7 mm 32% Nicolaides Head / Face / Neck Cephalic index0.75 11% Nicolaides Extremities / Bony Struc FL / BPD0.71 FL / HC0.19 FL / AC0.21 Other Structures THX919 bpm General Evaluation Cardiac activity present. FHR [...] view:Appears normal SVC:normal IVC:normal 3-vessel view:Appears normal 4-yjbhkm-gjzfjbm view:Appears normal Rt lung:Appears normal Lt lung:normal [...] Structures Uterus / Cervix Cervix:Visualized Approach:Transabdominal Cervical qkbvit32.6 mm Ovaries / Tubes / Adnexa Rt ovary:Visualized Lt ovary:Visualized Impression Today's exam reveals a SIUP with biometry consistent with dates. Fetalanatomic survey appears normal. Fluid is normal. The placenta is anterior,left. The TA cervical length appears adequate Recommendation Follow-up as clinically indicated. Coding ======= Description:09000-58 Detailed [employer] Operations Manager: Cheyenne Spence RDMS Physician: Sebastian Larsen MD, FACOG Electronically signed by: Sebastian Larsen MD, FACOG at: 09:18 Result [facility] Kelly Wtakins APRN [facility] [place] ORDERABLES Final Resu lt documented in this encounter Visit Diagnoses Diagnosis care, antepartum, unspecified High risk due to history of labor, antepartum History of prior with small for gestational age documented in this encounter Additional Health Concerns Assessment Noted Time PHQ-2 Depression Total Score: 2 05/28/19 25 4:39 PM EDT documented as of this encounter Care Teams Consulting Networking Engineer Relationship Specialty Start Date End Date Norma Friedman APRN [address] [place] [address] PCP - General Family Medicine 05/14/24 documented as of this encounter
--- OUTSIDE RECORDS SUMMARY | 2024-07-22 08:00 | XMS_ITS | Encounter Summary ---
Author Organization [facility] Address [address] [place] [phone] Care Team Providers Care Motor Patrol Operator Name Role Phone Ivyashlyn Valentinoseven JOLENE Primary Care Provider + [phone] Reason for Visit * Reason Comments incomplete anatomy; hx SGA in prev. preg onelia; prev. c/s Encounter Details Date Type Department Care Team (Late st Contact Info) Description 07/22/2024 8:00 AM EDT Office Visit [facility] MATERNAL MEDICINE [address] [place] [address] [place] [address] Sebastian Larsen MD [address] [facility] [address] [place] [phone] History of prior with small for gestational age (Primary Dx) Social History Tobacco Use Types Packs/Day Years Used Date Smoking Tobacco: Never Smokeless Tobacco: Never Alcohol Use Standard Drinks/Week Comments Never 0 (1 standard drink = 0.6 oz pur e alcohol) [facility] Utilities Answer Date Recorded In the past 12 months has [employer] electric, gas, oil, or water company threatened [...] and heating? Not hard at all 05/28/2024 [facility] [place] of Occupat ional Health - Occupational Stress [...] GED or equivalent No 05/28/2024 Preferred Language Lebanese 05/28/2024 PHQ-2 Answer Date Recorded Patient Health [...] Description 01/20/2025 3:30 PM EST Office Visit [facility] GASTROENTEROLOGY 1720 [facility] [address] [place] [address] Robbin Escalante MD 1720 [facility] [address] [place] [address] documented as of this encounter Visit Diagnoses Diagnosis History of prior with small for gestational age - Primary documented in this encounter Additional Health Concerns Assessment Noted Time PHQ-2 Depression Total Score: 2 05/28/19 25 4:39 PM EDT documented as of this encounter Care Teams Motor Patrol Operator Relationship Specialty Start Date End Date Norma Friedman APRN [address] [place] [address] [place] [address] PCP - General Family Medicine 05/14/24 documented as of this encounter
--- OUTSIDE RECORDS SUMMARY | 2024-07-22 09:10 | XMS_ITS | Encounter Summary ---
[facility] Address [address] [place] [id number] Care Team Providers Care Endoscope Technician Name Role Phone Norma Friedman APRN Primary Care Provider + [phone] Reason for Referral * Consultation (Routine) - Closed Specialty Diagnoses / Procedures Referred By Contac t Referred To Contact Nephrology Diagnoses History of proteinuria syndrome Procedures [place] OFFICE/OUTPATIENT NEW MODERATE MDM 45 MINUTES Staci Jain MD [address] [place] [address] Phone: tel: fax: [place] [address] Phone: tel: Referral ID Status Reason Start Date Expiration Date V isits Requested Visits Authorized [id number] Closed Specialty Services Required 07/22/2024 10/21/2025 1 1 Reason for Visit * Reason Comments Routine Visit * Diagnostic Imaging (Routine) - Closed Specialty Diagnoses / Procedures Referred By Contact Referred To Contact Obstetrics and Gynecology Diagnoses care, subsequent , second trimester Procedures US Ob 14 + Weeks Single or First Gestation Koby Roberts MD [address] [facility] [address] [place] [address] Phone: tel: fax: [facility] OBGYN [address] [place] [address] Phone: tel: fax: Referral ID Status Reason Start Date Expiration Date Visits Re quested Visits Authorized [id number] Closed 06/11/2024 09/10/2025 1 1 Encounter Details Date Type Department Care Team (Late st Contact Info) Description 07/22/2024 9:10 AM EDT Routine [facility] OBGYN [address] [phone] Staci Jain MD [address] [address] [place]: 21w1d Social History Tobacco Use Types Packs/Day Years Used Date Smoking Tobacco: Never Smokeless Tobacco: Never Alcohol Use Standard Drinks/Week Comments Never 0 (1 standard drink = 0.6 oz pur e alcohol) [facility] Utilities Answer Date Recorded In the past 12 months has [employer], gas, oil, or water [employer] threatened to shut off services in your [...] and heating? Not hard at all 05/28/2024 [facility] [place] of Occupat ional Health - Occupational Stress [...] GED or equivalent No 05/28/2024 Preferred Language Lithuanian 05/28/2024 PHQ-2 Answer Date Recorded Patient Health Questionnaire-9 Score 2 05/28/2024 Estimated Date of Delivery Comme nts Yes 12/01/2024 Based on last ny nstrual period of 02/25/2024 Sex and Gender [...] IUGR. Unknown reasons. Has not seen a spool worker This is my first time seeing patient. Transferred care. Will want to be seen in [facility]. Her care is complicated by (and [...] about 4 weeks (around 08/19/2024) for in [place]. Staci Jain MD 07/22/2024 documented in this encounter Plan of Treatment Upcoming Encounters Date Type Department Care Team (Late st Contact Info) Description 01/20/2025 3:30 PM EST Office Visit [facility] GASTR[facility]OLOGY [address] [address] Robbin Escalante MD [address] [address] Scheduled Referrals Name Type Priority Associated Diagnoses [...] AM EDT) Glucose, UA Negative Negative mg/dL [facility] Protein, POC 1+(A) Negative mg/dL [facility] Urine 07/22/2024 10:0 2 AM EDT us Staci Jain MD POINT OF CARE TEST OR DERABLES Final Result [facility]
[address] [place] [address], documented in this encounter Visit Diagnoses Diagnosis Multigravida in second trimester- Primary care, subsequent , second trimester History of proteinuria syndrome History of Other postprocedural status documented in this encounter Additional Health Concerns Assessment Noted Time PHQ-2 Depression Total Score: 2 05/28/19 25 4:39 PM EDT documented as of this encounter Care Teams Endoscope Technician Relationship Specialty Start Date End Date Norma Friedman APRN [address] [place] [address] [place] [address] [place] [id number] PCP - General Family Medicine 05/14/24 documented as of this encounter
--- OUTSIDE RECORDS SUMMARY | 2024-08-19 10:15 | XMS_ITS | Encounter Summary ---
Author Organization [facility] Address [address] [place] [id number] Care Team Providers Care Moving Consultant Name Role Phone Norma Friedman APRN Primary Care Provider + [phone] Reason for Visit * Reason Comments Routine Visit Encounter Details Date Type Department Care Team (Late st Contact Info) Description 08/19/2024 10:15 AM EDT Routine [facility] OBGYN [address] [place] [address] Jacey Mathews, AUTOMOTIVE SERVICE PROFESSIONAL [address] [place] [address] GA: 25w1d Social History Tobacco Use Types Packs/Day Years Used Date Smoking Tobacco: Never Smokeless Tobacco: Never Alcohol Use Standard Drinks/Week Comments Never 0 (1 standard drink = 0.6 oz pur e alcohol) [facility] Utilities Answer Date Recorded In the past 12 months has [employer], gas, oil, or water [employer] threatened to shut off services in your [...] and heating? Not hard at all 05/28/2024 [facility] [place] [facility] Health - Occupational Stress Questionnaire [...] GED or equivalent No 05/28/2024 Preferred Language Portuguese 05/28/2024 PHQ-2 Answer Date Recorded Patient Health [...] this encounter Progress Notes * Jacey Mathews, AUTOMOTIVE SERVICE PROFESSIONAL - 08/19/2024 10:15 AM EDT Images from [...] Description 01/20/2025 3:30 PM EST Office Visit [facility] GASTROENTEROLOGY [address] [facility] [address] [place] [address] Robbin Escalante MD [address] [facility] [address] [place] [address] documented as of this encounter Visit Diagnoses Diagnosis Vaginal bleeding in - Primary 25 weeks gestation of documented in this encounter Additional Health Concerns Assessment Noted Time PHQ-2 Depression Total Score: 2 05/28/19 25 4:39 PM EDT documented as of this encounter Care Teams Moving Consultant Relationship Specialty Start Date End Date Norma Friedman APRN [address] [place] [address] [place] [id number] PCP - General Family Medicine 05/14/24 documented as of this encounter
--- OUTSIDE RECORDS SUMMARY | 2024-08-19 13:59 | XMS_ITS | Encounter Summary ---
[facility] [address] [place] [id number] Care Team Providers Care Division Roadmaster Name Role Phone Ivyashlyn Norma FERNÁNDEZ Primary Care Provider + [phone] Reason for Visit * Reason Comments Vaginal Bleeding * Auth/Cert (Routine) Specialty Diagnoses / Procedures Referred By Contleyla t Referred To Contact Referral ID Status Reason Start Date Expiration Date Visits Re quested Visits Authorized [id number] 1 1 Encounter Details Date Type Department Care Team (Late st Contact Info) Description 08/19/2024 1:59 PM EDT - 08/20/2024 4:28 PM EDT Hospital Encounter [facility] [address] [place] [id number] Rob Wharton MD [address] [facility] [address] [place] [address] Blu Alvarado MD [address] [facility] [address] [place] [address] Dysphagia, unspecified type (Primary Dx) Discharge Disposition: Home or Self Care Social History Tobacco Use Types Packs/Day Years Used Date Smoking Tobacco: Never Smokeless Tobacco: Never Alcohol Use Standard Drinks/Week Comments Never 0 (1 standard drink = 0.6 oz pur e alcohol) [facility] Utilities Answer Date Recorded In the past 12 months has zappit, gas, oil, or water TRA threatened to shut off services in your [...] and heating? Not hard at all 05/28/2024 [facility] Ben Bolt of Occupat ional Health - Occupational Stress [...] GED or equivalent No 05/28/2024 Preferred Language Stateless 05/28/2024 PHQ-2 Answer Date Recorded Patient Health [...] 1:23 PM EDT Polly Lacey RN * [place] Suicide Severity Rating Scale (Screener/Recent Self-Report) Question [...] Labs beginning of week and f/u with sd Seng Test Results Pending at Discharge Pending Labs Order Current Status Tissue Pathology Exam In process Rob Wharton MD 08/20/24 15:36 EDT Time: Discharge <30 min documented in this encounter Discharge Instructions * Attachments The following attachments cannot be sent through Care Everywhere. * Second Trimester of (Stateless) * Upper Endoscopy Adult Care After (Stateless) documented in this encounter Medications at Time of Discharge famotidine (PEPCID) 20 MG tablet Take 1 tablet by mouth 2 (Two) Times a Day. Vit-Fe Fumarate-FA ( VITAMIN PO) busPIRone (BUSPAR) 5 MG tablet Take 1 tablet by mouth 3 (Three) Times a Day. 90 tablet 2 08/20/2024 omeprazole (priLOSEC) 20 MG capsule Take 1 capsule by mouth Daily. promethazine (PHENERGAN) 12.5 MG suppositoryIndi cations:Nausea and [...] 08/19/2024 RH Positive 08/19/2024 ABSCRN Negative 08/19/2024 [id number] non-reactive 04/12/2024 HEPCVIRUSABY negative 04/12/2024 URINECX Final [...] IUPC: Resting Tone: Resting Tone by IUPC: Erlanger Units: Cervix: Exam by: Method: sterile vaginal [...] from the original note were not included. [facility] Obstetric History and Physical Referring Provider: Rob [...] her third trimesters prior pregnancies(etiology unknown). Patient's dance historian is in [facility]. She states has never had a EGD [...] IUPC: Resting Tone: Resting Tone by IUPC: Erlanger Units: Laboratory Results: Lab Results (last 24 [...] AM EDTAssociated Order(s): IP CONSULT TO GASTROENTEROLOGY [facility] Gastroenterology Consult Referring Provider: Dr. Fan/Dr. Wharton [...] expresses concern regarding recent CT [facility] at [facility] revealing a hiatal hernia. CT scan done prior to most recent due to ovarian cyst and incidentally revealed hiatal hernia. She reports chronic gastrointestinal symptoms. Review of medical record revealed prior GI referral due to blood per rectum. She reports colonoscopy in 2020 at outside facility that revealed diverticulosis and benign colon polyp. She is currently established with provider at [facility] for gastroenterology care she reports repeat EGD [...] , await recommendations following EGD - consider TOOL CRIB SUPERVISOR evaluation if no etiology for difficulty swallowing [...] from the original note were not included. [facility] Obstetric History and Physical Referring Provider: Rob [...] her third trimesters prior pregnancies(etiology unknown). Patient's dance historian is in [facility]. She states has never had a EGD [...] IUPC: Resting Tone: Resting Tone by IUPC: Erlanger Units: Laboratory Results: Lab Results (last 24 [...] Visit [facility] [address] [facility] [phone] Robbin Escalante MD [address] [facility] [address] documented as of this encounter Procedures Procedure Name Priority Date/Time Associated Diagnosis Comments TISSUE PATHOLOGY EXAM Routine 08/20/2024 1:55 PM EDT Dysphagia, unspecified type ME ESOPHAGOGASTRODUODENOSCOP Y TRANSORAL DIAGNOSTIC 08/20/2024 1:44 PM EDT Dysphagia, unspecified type UPPER GI ENDOSCOPY 08/20/2024 1:09 PM EDT BASIC METABOLIC PANEL STAT 08/20/2024 5:25 AM EDT POTASSIUM STAT 08/19/2024 8:53 PM EDT ABORH 2ND SPECIMEN VERIFICATION STAT 08/19/2024 4:34 PM EDT NONSTRESS TEST Routine 08/19/2024 4:17 PM EDT [facility] Routine 08/19/2024 3:25 PM EDT [...] EDT) Case Report Surgical Pathology Report Case: [id number] Authorizing Provider: Blu Alvarado MD Collected: 08/20/2024 01:55 PM Ordering Location: [facility] Received: 08/20/2024 02:14 PM ENDO SUITES Pathologist: Khalida Rhoades DO Specimen: Gastric, Antrum, antrum bx for path 08/22/2024 9:18 AM EDT [facility] Clinical Information Dysphagia, unspecified type 08/22/2024 9:18 AM EDT [facility] Final Diagnosis Stomach, antrum, biopsy: 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 pylori is negative (no organisms are identified) Negative for intestinal metaplasia, dysplasia, or malignancy 08/22/2024 9:18 AM EDT [facility] at 0918 EDT Gross Description 1. Gastric, Antrum. Received in formalin labeled antrum biopsy is a 0.4 x 0.2 x 0.2 cm pink-see soft tissue fragment submitted entirely in a single cassette. HDM 08/22/2024 9:18 AM EDT [facility] Microscopic Description The slides are reviewed and demonstrate histopathologic features supporting the above rendered diagnosis. 08/22/2024 9:18 AM EDT [facility] Tissue Pyloric antrum structure / Unknown 08/20/2024 1:55 PM EDT 08/20/2024 2:14 PM EDT us Blu Alvarado MD PATHOLOGY/CYTOLOGY ORDERABLES Final Result [facility]
[address] [place] [address], * Upper GI Endoscopy (08/20/2024 1:09 PM EDT) us Blu Alvarado MD INTERFACE NEEDS Final Result * (ABNORMAL) Basic Metabolic Panel (08/20/2024 5:25 AM EDT) Glucose 84 65 - 99 mg/dL 08/20/2024 6:13 AM EDT [facility] BUN 2.3(L) 6.0 - 20.0 mg/dL 08/20/2024 6:13 AM EDT [facility] Creatinine 0.51(L) 0.57 - 1.00 mg/dL 08/20/2024 6:13 AM EDT [facility] Sodium 139 136 - 145 mmol/L 08/20/2024 6:13 AM EDT [facility] Potassium 3.5 3.5 - 5.2 mmol/L 08/20/2024 6:13 AM EDT [facility] Chloride 109(H) 98 - 107 mmol/L 08/20/2024 6:13 AM EDT [facility] CO2 23.5 22.0 - 29.0 mmol/L 08/20/2024 6:13 AM EDT [facility] Calcium 7.8(L) 8.6 - 10.5 mg/dL 08/20/2024 6:13 AM EDT [facility] BUN/Creatinine Ratio 4.5(L) 7.0 - 25.0 08/20/2024 6:13 AM EDT [facility] Anion Gap 6.5 5.0 - 15.0 mmol/L 08/20/2024 6:13 AM T [facility] eGFR 126.6 >60.0 mL/min/1.7 3 08/20/2024 6:13 AM T [facility] Blood Venipuncture / Unknown 08/20/2024 5:25 AM EDT 08/20/2024 5:46 AM EDT [facility] - 08/20/2024 6:13 AM EDT [...] ORDERABLES Final Resu lt Performing Organization Address City/[facility]/ZIP Co de Phone Number [facility]
[address] [place] [address], * (ABNORMAL) Potassium (08/19/2024 8:53 PM EDT) Potassium 2.7(L) 3.5 - 5.2 mmol/L 08/19/2024 9:20 PM EDT [facility] Blood Venipuncture / Unknown 08/19/2024 8:53 PM EDT 08/19/2024 9:04 PM EDT Kt Fan DO LAB BLOOD ORDERABLES Final Result Performing Organization Address [facility] Co de Phone Number [facility]
[address] [place] [address], * ABO RH Specimen Verification (08/19/2024 4:34 PM EDT) ABO Type O 08/19/2024 7:39 PM EDT [facility] RH type Positive 08/19/2024 7:39 PM EDT [facility] Blood Venipuncture / Unknown 08/19/2024 4:34 PM EDT 08/19/2024 4:53 PM EDT Rob Wharton MD BLOOD BANK TEST ORDER FRANCO Final Result Performing Organization Address City/[facility]/ZIP Co de Phone Number [facility]
[address] [place] [address], * [facility] (08/19/2024 3:25 PM EDT) Anatomical Region Laterality Modality Ultrasound 08/19/2024 3:09 PM EDT Narrative 08/19/2024 4:54 PM EDT PAT NAME: CAROLE GIRARD MED REC#: [id number] DA: 1990 PAT GEND: F PAT TYPE: E EXAM TRAVIS: [id number] REF PHYS ROB WHARTON Comparison Studies The [...] EFW (oz) 9 oz EFW by: Hadlock ([id number]) Extended Cav. septi pel. tr 4.7 mm Crm Specialist 3.8 mm CM 7.5 mm 84% Nicolaides [...] Heart / Thorax 3-vessel view: Appears normal 9-pjqsrw-iefxiol view: Appears normal Stomach: Appears normal Kidneys: [...] in 4wks for growth. Coding ======= Description: 60253-84 Follow Up Route Service Representative: RT Annetta Hartmann , [facility] Physician: Jo Chappell MD Electronically signed by: Jo Chappell MD at: 16:54 Procedure Note Jo Chappell MD - 08/19/2024 PAT NAME: CAROLE GIRARD MED REC#: [id number] DA: 1990 PAT GEND: F PAT TYPE: E EXAM TRAVIS: [id number] REF PHYS ROB WHARTON Comparison Studies The findings of this study are compared to the prior ultrasound studydated 07/22/24 Patient Status Inpatient Indication ======== History of c/s x1. History of . Vaginal bleeding. Maternal Assessment Bmtrci925 cm Height (ft)5 ft Height (in)4 in Rtwacg81 kg Weight (lb)158 lb BMI27.31 kg/m Method ======= Transabdominal ultrasound examination. View: Limited by patient bodyhabitus ========= Love . Number of fetuses: 1 Dating ====== Method of dating:based on stated DUSTY GA by prior w + 1 d DUSTY by prior assessment:12/01/2024 Ultrasound examination on:08/19/2024 GA by U/S based upon:AC, BPD, Femur, HC GA by U/S24 w + 2 d DUSTY by U/S:12/07/2024 Previous dating:based on stated DUSTY, selected on 07/22/2024 Agreed DUSTY of previous datin12/01/2024 Assigned:based on stated DUSTY, selected on 08/19/2024 Assigned GA25 w + 1 d Assigned DUSTY:12/01/2024 [id number] d Biometry Standard BPD57.6 mm 23w 4d 5% Hadlock OFD81.6 mm 26w 4d 88% Jamal HC225.7 mm 24w 4d 13% Hadlock Cerebellum tr28.9 mm 25w 2d 62% Hill AC194.9 mm 24w 1d 15% Hadlock Femur44.9 mm 24w 6d 27% Hadlock Ubdahbl71.3 mm 25w 3d 50% Jamal HC / AC1.16 SSJ869 g 24w 2d 16% Hadlock EFW (lb)1 lb EFW (oz)9 oz EFW by:Hadlock ([id number]) Extended Cav. septi pel. tr4.7 mm Vp3.8 mm CM7.5 mm 84% Nicolaides Head / Face / Neck Cephalic index0.71 <1% Nicolaides Extremities / Bony Struc FL / BPD0.78 FL / HC0.20 FL / AC0.23 Other Structures UWD404 bpm General Evaluation Cardiac activity present. FHR [...] normal Heart / Thorax 3-vessel view:Appears normal 1-gwslnp-cihrajn view:Appears normal Stomach:Appears normal Kidneys:Appears normal Bladder:Appears normal Gender:female Wants to know gender:yes Maternal Structures Uterus / Cervix Cervix:Visualized Approach:Transabdominal Cervical xycnqs04.9 mm Doppler Arterial Umbilical A PI1.01 32% [...] office in 4wks for growth. Coding ======= Description:60014-39 [address] Service Representative: RT Annetta Hartmann , RDMS Physician: Jo Chappell MD Electronically signed by: Jo Chappell MD at: 16:54 us Kt Fan DO G US ORDERABLES Final Res ult * Protein / Creatinine Ratio, Urine - Urine, Clean Catch (08/19/2024 3:02 PM EDT) Protein/Creati nine Ratio, Urine 126.1 0.0 - 200.0 mg/G Crea 08/20/2024 12:47 AM EDT [facility] Creatinine, Urine 148.3 mg/dL 08/20/2024 12:47 AM EDT [facility] Total Protein, Urine 18.7 mg/dL 08/20/2024 12:47 AM EDT [facility] Urine Urine specimen obtained by clean catch procedure / Unknown Collection / Unknown 08/19/2024 3:02 PM EDT 08/19/2024 4:26 PM EDT Kt Fan URINE ORDERABLES Final Resu lt [facility]
[address] [place] [address], [place] [phone] * (ABNORMAL) Magnesium (08/19/2024 3:02 PM EDT) Magnesium 1.5(L) 1.6 - 2.6 mg/dL 08/19/2024 5:12 PM EDT [facility] Blood Line / Unknown 08/19/2024 3: 02 PM EDT 08/19/2024 3:10 PM EDT Kt Fan DO LAB BLOOD ORDERABLES Final Result [facility]
[address] [place] [address], [place] [phone] * Urinalysis, Microscopic Only - Urine, Clean Catch (08/19/2024 3:02 PM EDT) RBC, UA 0-2 None Seen, 0-2 /HPF 08/19/2024 3:33 PM EDT [facility] WBC, UA 0-2 None Seen, 0-2 /HPF 08/19/2024 3:33 PM EDT [facility] Bacteria, UA None Seen None Seen /HPF 08/19/2024 3:33 PM EDT [facility] Squamous Epithelial Cells, UA 0-2 None Seen, 0-2 /HPF 08/19/2024 3:33 PM EDT [facility] Hyaline Casts, UA None Seen None Seen /LPF 08/19/2024 3:33 PM EDT [facility] Methodology Automated Microscopy 08/19/2024 3:33 PM EDT [facility] Urine Urine specimen obtained by clean catch procedure / Unknown Collection / Unknown 08/19/2024 3:02 PM EDT 08/19/2024 3:13 PM EDT us Kt Fan DO URINE ORDERABLES Final Resu lt [facility]
[address] [place] [address], * (ABNORMAL) CBC Auto Differential (08/19/2024 3:02 PM EDT) WBC 9.19 3.40 - 10.80 10*3/mm3 08/19/2024 3:23 PM EDT [facility] RBC 3.58(L) 3.77 - 5.28 10*6/mm3 08/19/2024 3:23 PM EDT [facility] Hemoglobin 10.5(L) 12.0 - 15.9 g/dL 08/19/2024 3:23 PM EDT [facility] Hematocrit 31.4(L) 34.0 - 46.6 % 08/19/2024 3:23 PM EDT [facility] MCV 87.7 79.0 - 97.0 fL 08/19/2024 3:23 PM EDT [facility] MCH 29.3 26.6 - 33.0 pg 08/19/2024 3:23 PM EDT [facility] MCHC 33.4 31.5 - 35.7 g/dL 08/19/2024 3:23 PM EDT [facility] RDW 13.4 12.3 - 15.4 % 08/19/2024 3:23 PM EDT [facility] RDW-SD 42.4 37.0 - 54.0 fl 08/19/2024 3:23 PM EDT [facility] MPV 12.0 6.0 - 12.0 fL 08/19/2024 3:23 PM EDT [facility] Platelets 241 140 - 450 10*3/mm3 08/19/2024 3:23 PM EDT [facility] Neutrophil % 66.8 42.7 - 76.0 % 08/19/2024 3:23 PM EDT [facility] Lymphocyte % 24.4 19.6 - 45.3 % 08/19[facility]2024 [facility] Monocyte % 7.6 5.0 - 12.0 % 08/19/2024 3:23 [facility] Eosinophil % 0.7 0.3 - 6.2 % 08/19/2024 3:23 [facility] Basophil % 0.2 0.0 - 1.5 % 08/19/2024 3:23 [facility] Immature Grans % 0.3 0.0 - 0.5 % 08/19/2024 3:23 PM [facility] Neutrophils, Absolute 6.14 1.70 - 7.00 10*3/mm3 08/19/2024 3:23 PM [facility] Lymphocytes, Absolute 2.24 0.70 - 3.10 10*3/mm3 08/19/2024 3:23 PM EDT [facility] Monocytes, Absolute 0.70 0.10 - 0.90 10*3/mm3 08/19/2024 3:23 PM EDT [facility] Eosinophils, Absolute 0.06 0.00 - 0.40 10*3/mm3 08/19/2024 3:23 PM [facility] Basophils, Absolute 0.02 0.00 - 0.20 10*3/mm3 08/19/2024 3:23 PM EDT [facility] Immature Grans, Absolute 0.03 0.00 - 0.05 10*3/mm3 08/19/2024 3:23 PM EDT [facility] nRBC 0.0 0.0 - 0.2 /100 WBC 08/19/2024 3:23 PM EDT [facility] Blood Line / Unknown 08/19/2024 3: 02 PM EDT 08/19/2024 3:10 PM EDT Kt Fan DO LAB BLOOD ORDERABLES Final Result [facility]
[address] [place] [address], * (ABNORMAL) Urinalysis With Microscopic If Indicated (No Culture) - Urine, Clean Catch (08/19/2024 3:02 PM EDT) Color, UA Yellow Yellow, Straw 08/19/2024 3:33 PM EDT [facility] Appearance, UA Clear Clear 08/19/2024 3:33 PM EDT [facility] pH, UA >=9.0(H) 5.0 - 8.0 08/19/2024 3:33 PM EDT [facility] Specific [place], UA 1.018 1.005 - 1.030 08/19/2024 3:33 PM EDT [facility] Glucose, UA Negative Negative 08/19/2024 3:33 PM EDT [facility] Ketones, UA 15 mg/dL (1+)(A) Negative 08/19/2024 3:33 PM EDT [facility] Bilirubin, UA Negative Negative 08/19/2024 3:33 PM EDT [facility] Blood, UA Negative Negative 08/19/2024 3:33 PM EDT [facility] Protein, UA 30 mg/dL (1+)(A) Negative 08/19/2024 3:33 PM EDT [facility] Leuk Esterase, UA Negative Negative 08/19/2024 3:33 PM EDT [facility] Nitrite, UA Negative Negative 08/19/2024 3:33 PM EDT [facility] Urobilinogen, UA 1.0 E.U./dL 0.2 - 1.0 E.U./dL 08/19/2024 3:33 PM EDT [facility] Urine Urine specimen obtained by clean catch procedure / Unknown Collection / Unknown 08/19/2024 3:02 PM EDT 08/19/2024 3:13 PM EDT us Kt Fan DO URINE ORDERABLES Final Resu lt Performing Organization Address City/[facility]/ZIP Co de Phone Number [facility]
[address] [place] [address], [place] [phone] * Amylase (08/19/2024 3:02 PM EDT) Amylase 73 28 - 100 U/L 08/19/2024 3:36 PM EDT [facility] Blood Line / Unknown 08/19/2024 3: 02 PM EDT 08/19/2024 3:10 PM EDT us Kt Fan DO LAB BLOOD ORDERABLES Final Result Performing Organization Address [facility] Co de Phone Number [facility]
[address] [place] [address], [place] [phone] * Lipase (08/19/2024 3:02 PM EDT) Lipase 13 13 - 60 U/L 08/19/2024 3:36 PM EDT [facility] Blood Line / Unknown 08/19/2024 3: 02 PM EDT 08/19/2024 3:10 PM EDT us Kt Fan DO LAB BLOOD ORDERABLES Final Result Performing Organization Address City/[facility]/ZIP Co de Phone Number [facility]
[address] [place] [address], * (ABNORMAL) Comprehensive Metabolic Panel (08/19/2024 3:02 PM EDT) [facility] Glucose 75 65 - 99 mg/dL 08/19/2024 3:38 PM EDT [facility] BUN 3.6(L) 6.0 - 20.0 mg/dL 08/19/2024 3:38 PM EDT [facility] Creatinine 0.51(L) 0.57 - 1.00 mg/dL 08/19/2024 3:38 PM EDT [facility] Sodium 137 136 - 145 mmol/L 08/19/2024 3:38 PM EDT [facility] Potassium 2.6(LL) 3.5 - 5.2 mmol/L 08/19/2024 3:38 PM EDT [facility] Comment:Specimen hemolyzed. Result may be falsely elevated. Chloride 99 98 - 107 mmol/L 08/19/2024 3:38 PM EDT [facility] CO2 24.2 22.0 - 29.0 mmol/L 08/19/2024 3:38 PM EDT [facility] Calcium 8.8 8.6 - 10.5 mg/dL 08/19/2024 3:38 PM EDT [facility] Total Protein 6.6 6.0 - 8.5 g/dL 08/19/2024 3:38 PM EDT [facility] Albumin 3.4(L) 3.5 - 5.2 g/dL 08/19/2024 3:38 PM EDT [facility] ALT (SGPT) 10 1 - 33 U/L 08/19/2024 3:38 PM EDT [facility] AST (SGOT) 22 1 - 32 U/L 08/19/2024 3:38 PM EDT [facility] Alkaline Phosphatase 64 39 - 117 U/L 08/19/2024 3:38 PM EDT [facility] Total Bilirubin 0.5 0.0 - 1.2 mg/dL 08/19/2024 3:38 PM EDT [facility] Globulin 3.2 gm/dL 08/19/2024 3:38 PM EDT [facility] Comment:Calculated Result A/G Ratio 1.1 g/dL 08/19/2024 3:38 PM EDT [facility] BUN/Creatinine Ratio 7.1 7.0 - 25.0 08/19/2024 3:38 PM EDT [facility] Anion Gap 13.8 5.0 - 15.0 mmol/L 08/19/2024 3:38 PM EDT [facility] eGFR 126.6 >60.0 mL/min/1.7 3 08/19/2024 3:38 PM EDT [facility] Blood Line / Unknown 08/19/2024 3: 02 PM EDT 08/19/2024 3:10 PM EDT Narrative [facility] - 08/19/2024 3:38 PM EDT [...] Fan DO LAB BLOOD ORDERABLES Final Result [facility]
[address] [place] [address], * Type & Screen (08/19/2024 3:02 PM EDT) ABO Type O 08/19/2024 3:51 PM EDT [facility] RH type Positive 08/19/2024 3:51 PM EDT [facility] Antibody Screen Negative 08/19/2024 3:51 PM EDT [facility] T&S Expiration Date 08/22/2024 11:59:59 PM 08/19/2024 3:51 PM EDT [facility] Blood Line / Unknown 08/19/2024 3: 02 PM EDT 08/19/2024 3:15 PM EDT Kt Fan DO BLOOD BANK TEST ORDERABLES Edited Result - Final [facility]
[address] [place] [address], documented in this encounter Visit Diagnoses Diagnosis [...] documented as of this encounter Care Teams Division Roadmaster Relationship Specialty Start Date End Date Norma Friedman APRN [address] [place] G3 RAFAELA APPIAH [address] PCP - General Family Medicine 05/14/24 documented as of this encounter
--- OUTSIDE RECORDS SUMMARY | 2024-08-20 13:33 | XMS_ITS | Encounter Summary ---
[facility] Address [address] [place] [address] Care Team Providers Care Transit Police Officer Name Role Phone Norma Friedman APRN Primary Care Provider + [phone] Reason for Visit * Reason Comments Vaginal Bleeding * Auth/Cert (Routine) Specialty Diagnoses / Procedures Referred By Tarik t Referred To Contact Referral ID Status Reason Start Date Expiration Date Visits Re quested Visits Authorized [id number] 1 1 Encounter Details Date Type Department Care Team (Late st Contact Info) Description 08/20/2024 1:33 PM EDT - 08/20/2024 2:05 PM EDT Surgery [facility] ENDO SUITES [address] [place] [address] Blu Alvarado MD [address] [facility] [address] [place] [address] ESOPHAGOGASTRODUODENOSCOPY [88078 (CPT )] Social History Tobacco Use Types Packs/Day Years Used Date Smoking Tobacco: Never Smokeless Tobacco: Never Alcohol Use Standard Drinks/Week Comments Never 0 (1 standard drink = 0.6 oz pur e alcohol) [facility] Utilities Answer Date Recorded In the [...] and heating? Not hard at all 05/28/2024 [facility] - Occupational Stress Questionnaire Answer [...] GED or equivalent No 05/28/2024 Preferred Language Honduran 05/28/2024 PHQ-2 Answer Date Recorded Patient Health [...] 1:23 PM EDT Polly Lacey RN * [place] Suicide Severity Rating Scale (Screener/Recent Self-Report) Question [...] Labs [facility] Pending at Discharge Pending Labs Order Current Status Tissue Pathology Exam In process Rob Whraton MD 08/20/24 15:36 EDT Time: Discharge <30 min documented in this encounter Discharge Instructions * Attachments The following attachments cannot be sent through Care Everywhere. * Second Trimester of (Honduran) * Upper Endoscopy Adult Care After (Honduran) documented in this encounter Medications at Time [...] 08/19/2024 RH Positive 08/19/2024 ABSCRN Negative 08/19/2024 [id number] non-reactive 04/12/2024 HEPCVIRUSABY negative 04/12/2024 URINECX Final [...] IUPC: Resting Tone: Resting Tone by IUPC: [place] Units: Cervix: Exam by: Method: sterile vaginal [...] her third trimesters prior pregnancies(etiology unknown). Patient's psychologist chief is in [facility]. She [...] IUPC: Resting Tone: Resting Tone by IUPC: [place] Units: Laboratory Results: Lab Results (last 24 [...] AM EDTAssociated Order(s): IP CONSULT TO GASTROENTEROLOGY [facility] Gastroenterology Consult Referring Provider: Dr. Fan/Dr. Wharton [...] expresses concern regarding recent CT scan at revealing a hiatal hernia. CT scan done prior to most recent due to ovarian cyst and incidentally revealed hiatal hernia. She reports chronic gastrointestinal symptoms. Review of medical record revealed prior GI referral due to blood per rectum. She reports colonoscopy in 2020 at outside facility that revealed diverticulosis and benign colon polyp. 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 Patient's psychologist chief is in [facility]. She [...] IUPC: Resting Tone: Resting Tone by IUPC: [place] Units: Laboratory Results: Lab Results (last 24 [...] Description 01/20/2025 3:30 PM EST Office Visit [facility] GASTROENTEROLOGY [address] [id number] Robbin Escalante MD [address] [address] documented as of this encounter Procedures Procedure [...] TEST Routine 08/19/2024 4:17 PM EDT [facility] Routine 08/19/2024 3:25 [...] EDT) Case Report Surgical Pathology Report Case: [id number] Authorizing Provider: Blu Alvarado MD Collected: 08/20/2024 01:55 PM Ordering Location: [facility] Received: 08/20/2024 02:14 PM ENDO SUITES Pathologist: Khalida Rhoades DO Specimen: Gastric, Antrum, antrum bx for path 08/22/2024 9:18 AM EDT [facility] Clinical Information Dysphagia, unspecified type 08/22/2024 9:18 AM EDT [facility] Final Diagnosis Stomach, antrum, biopsy: 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 pylori is negative (no organisms are identified) Negative for intestinal metaplasia, dysplasia, or malignancy 08/22/2024 9:18 AM EDT [facility] at 0918 EDT Gross Description 1. Gastric, Antrum. Received in formalin labeled antrum biopsy is a 0.4 x 0.2 x 0.2 cm pink-see soft tissue fragment submitted entirely in a single cassette. HDM 08/22/2024 9:18 AM EDT [facility] Microscopic Description The slides are reviewed and demonstrate histopathologic features supporting the above rendered diagnosis. 08/22/2024 9:18 AM EDT [facility] Tissue Pyloric antrum structure / Unknown 08/20/2024 1:55 PM EDT 08/20/2024 2:14 PM EDT us Blu Alvarado MD PATHOLOGY/CYTOLOGY ORDERABLES Final Result [facility]
[address] [place] [address], * Upper GI Endoscopy (08/20/2024 1:09 PM EDT) us Blu Alvarado MD INTERFACE NEEDS Final Result * (ABNORMAL) Basic Metabolic Panel (08/20/2024 5:25 AM EDT) Glucose 84 65 - 99 mg/dL 08/20/2024 6:13 AM EDT [facility] BUN 2.3(L) 6.0 - 20.0 mg/dL 08/20/2024 6:13 AM T [facility] Creatinine 0.51(L) 0.57 - 1.00 mg/dL 08/20/2024 6:13 AM [facility] Sodium 139 136 - 145 mmol/L 08/20/2024 6:13 AM EDT [facility] Potassium 3.5 3.5 - 5.2 mmol/L 08/20/2024 6:13 AM EDT [facility] Chloride 109(H) 98 - 107 mmol/L 08/20/2024 6:13 AM [facility] CO2 23.5 22.0 - 29.0 mmol/L 08/20/2024 6:13 AM [facility] Calcium 7.8(L) 8.6 - 10.5 mg/dL 08/20/2024 6:13 AM [facility] BUN/Creatinine Ratio 4.5(L) 7.0 - 25.0 08/20/2024 6:13 AM [facility] Anion Gap 6.5 5.0 - 15.0 mmol/L 08/20/2024 6:13 AM [facility] eGFR 126.6 >60.0 mL/min/1.7 3 08/20/2024 6:13 AM [facility] Blood Venipuncture / Unknown 08/20/2024 5:25 AM EDT 08/20/2024 5:46 AM T [facility] - 08/20/2024 6:13 AM [...] ORDERABLES Final Resu lt Performing Organization Address City/[facility]/ZIP Co de Phone Number [facility]
[address] [place] [address], * (ABNORMAL) Potassium (08/19/2024 8:53 PM EDT) Potassium 2.7(L) 3.5 - 5.2 mmol/L 08/19/2024 9:20 PM EDT [facility] Blood Venipuncture / Unknown 08/19/2024 8:53 PM EDT 08/19/2024 9:04 PM EDT Kt Fan DO LAB BLOOD ORDERABLES Final Result Performing Organization Address [facility] Co de Phone Number [facility]
[address] [place] [address], * ABO RH Specimen Verification (08/19/2024 4:34 PM EDT) ABO Type O 08/19/2024 7:39 PM EDT [facility] RH type Positive 08/19/2024 7:39 PM EDT [facility] Blood Venipuncture / Unknown 08/19/2024 4:34 PM EDT 08/19/2024 4:53 PM EDT Rob Wharton MD BLOOD BANK TEST ORDER FRANCO Final Result Performing Organization Address City/[facility]/ZIP Co de Phone Number [facility]
[address] [place] [address], * [facility] (08/19/2024 3:25 PM EDT) Anatomical Region Laterality Modality Ultrasound 08/19/2024 3:09 PM EDT Narrative 08/19/2024 4:54 PM EDT PAT NAME: CAROLE GIRARD MED REC#: [id number] DA: 1990 PAT GEND: F PAT TYPE: E EXAM TRAVIS: [id number] REF PHYS ROB WHARTON Comparison Studies The [...] EFW (oz) 9 oz EFW by: Hadlock ([id number]) Extended Cav. septi pel. tr 4.7 mm Registration Manager 3.8 mm CM 7.5 mm 84% Nicolaides [...] Heart / Thorax 3-vessel view: Appears normal 6-efmvjx-ldzcijf view: Appears normal Stomach: Appears normal Kidneys: [...] in 4wks for growth. Coding ======= Description: 88161-79 Follow Up Cnc Milling Machine Operator: Alison Verduzco RT R , MS Physician: Jo Chappell MD Electronically signed by: Jo Chappell MD at: 16:54 Procedure Note Jo Chappell MD - 08/19/2024 PAT NAME: CAROLE GIRARD MED REC#: [id number] DA: [id number] PAT GEND: F PAT TYPE: E EXAM TRAVIS: [id number] REF PHYS ROB WHARTON Comparison Studies The findings of this study are compared to the prior ultrasound studydated 07/22/24 Patient Status Inpatient Indication ======== History of c/s x1. History of . Vaginal bleeding. Maternal Assessment Ibblbn548 cm Height (ft)5 ft Height (in)4 in Xlnkzh24 kg Weight (lb)158 lb BMI27.31 kg/m Method ======= Transabdominal ultrasound examination. View: Limited by patient bodyhabitus ========= Love . Number of fetuses: 1 Dating ====== Method of dating:based on stated DUSTY GA by prior [id number] w + 1 d DUSTY by prior assessment:12/01/2024 Ultrasound examination on:08/19/2024 GA by U/S based upon:AC, BPD, Femur, HC GA by U/S24 w + 2 d DUSTY by U/S:12/07/2024 Previous dating:based on stated DUSTY, selected on 07/22/2024 Agreed DUSTY of previous datin12/01/2024 Assigned:based on stated DUSTY, selected on 08/19/2024 Assigned GA25 w + 1 d Assigned DUSTY:12/01/2024 [id number] d Biometry Standard BPD57.6 mm 23w 4d 5% Hadlock OFD81.6 mm 26w 4d 88% Jamal HC225.7 mm 24w 4d 13% Hadlock Cerebellum tr28.9 mm 25w 2d 62% Hill AC194.9 mm 24w 1d 15% Hadlock Femur44.9 mm 24w 6d 27% Hadlock Cowkatu25.3 mm 25w 3d 50% Jamal HC / AC1.16 BDS955 g 24w 2d 16% Hadlock EFW (lb)1 lb EFW (oz)9 oz EFW by:Hadlock ([id number]) Extended Cav. septi pel. tr4.7 mm Vp3.8 mm CM7.5 mm 84% Nicolaides Head / Face / Neck Cephalic index0.71 <1% Nicolaides Extremities / Bony Struc FL / BPD0.78 FL / HC0.20 FL / AC0.23 Other Structures AEH430 bpm General Evaluation Cardiac activity present. FHR [...] normal Heart / Thorax 3-vessel view:Appears normal 3-oboudl-ycfrcon view:Appears normal Stomach:Appears normal Kidneys:Appears normal Bladder:Appears normal Gender:female Wants to know gender:yes Maternal Structures Uterus / Cervix Cervix:Visualized Approach:Transabdominal Cervical kzcgyi04.9 mm Doppler Arterial Umbilical A PI1.01 32% [...] office in 4wks for growth. Coding ======= Description:94463-63 Follow Up Cnc Milling Machine Operator: RT Annetta Hartmann , [facility] Physician: Jo Chappell MD Electronically signed by: Jo Chappell MD at: 16:54 us Kt Fan DO [facility] US ORDERABLES Final [...] lt [facility]
[address] [place] [address], [place] [phone] * (ABNORMAL) Magnesium (08/19/2024 3:02 PM EDT) Magnesium 1.5(L) 1.6 - 2.6 mg/dL 08/19/2024 5:12 PM EDT [facility] Blood Line / Unknown 08/19/2024 3: 02 PM EDT 08/19/2024 3:10 PM EDT Kt Fan DO LAB BLOOD ORDERABLES Final Result Performing Organization Address City/[facility]/ZIP Co de Phone Number [facility]
[address] [place] [address], [place] [phone] * Urinalysis, Microscopic Only - Urine, Clean Catch (08/19/2024 3:02 PM EDT) RBC, UA 0-2 None Seen, 0-2 /HPF 08/19/2024 3:33 PM EDT [facility] WBC, UA 0-2 None Seen, 0-2 /HPF 08/19/2024 3:33 PM EDT [facility] Bacteria, UA None Seen None Seen /HPF 08/19/2024 3:33 PM EDT [facility] Squamous Epithelial Cells, UA 0-2 None Seen, 0-2 /HPF 08/19/2024 3:33 PM EDT [facility] Hyaline Casts, UA None Seen None Seen /LPF 08/19/2024 3:33 PM EDT [facility] Methodology Automated Microscopy 08/19/2024 3:33 PM EDT [facility] Urine Urine specimen obtained by clean catch procedure / Unknown Collection / Unknown 08/19/2024 3:02 PM EDT 08/19/2024 3:13 PM EDT Kt Fan DO URINE ORDERABLES Final Resu lt [facility]
[address] [place] [address], * (ABNORMAL) CBC Auto Differential (08/19/2024 3:02 PM EDT) WBC 9.19 3.40 - 10.80 10*3/mm3 08/19/2024 3:23 PM EDT [facility] RBC 3.58(L) 3.77 - 5.28 10*6/mm3 08/19/2024 3:23 PM EDT [facility] Hemoglobin 10.5(L) 12.0 - 15.9 g/dL 08/19/2024 3:23 PM EDT [facility] Hematocrit 31.4(L) 34.0 - 46.6 % 08/19/2024 3:23 PM EDT [facility] MCV 87.7 79.0 - 97.0 fL 08/19/2024 3:23 PM EDT [facility] MCH 29.3 26.6 - 33.0 pg 08/19/2024 3:23 PM EDT [facility] MCHC 33.4 31.5 - 35.7 g/dL 08/19/2024 3:23 PM EDT [facility] RDW 13.4 12.3 - 15.4 % 08/19/2024 3:23 PM EDT [facility] RDW-SD 42.4 37.0 - 54.0 fl 08/19/2024 3:23 PM EDT [facility] MPV 12.0 6.0 - 12.0 fL 08/19/2024 3:23 PM EDT [facility] Platelets 241 140 - 450 10*3/mm3 08/19/2024 3:23 PM EDT [facility] Neutrophil % 66.8 42.7 - 76.0 % 08/19/2024 3:23 PM EDT [facility] Lymphocyte % 24.4 19.6 - 45.3 % 08/19/2024 3:23 PM EDT [facility] Monocyte % 7.6 5.0 - 12.0 % 08/19/2024 3:23 PM EDT [facility] Eosinophil % 0.7 0.3 - 6.2 % 08/19/2024 3:23 PM EDT [facility] Basophil % 0.2 0.0 - 1.5 % 08/19/2024 3:23 PM EDT [facility] Immature Grans % 0.3 0.0 - 0.5 % 08/19/2024 3:23 PM EDT [facility] Neutrophils, Absolute 6.14 1.70 - 7.00 10*3/mm3 08/19/2024 3:23 PM EDT [facility] Lymphocytes, Absolute 2.24 0.70 - 3.10 10*3/mm3 08/19/2024 3:23 PM EDT [facility] Monocytes, Absolute 0.70 0.10 - 0.90 10*3/mm3 08/19/2024 3:23 PM EDT [facility] Eosinophils, Absolute 0.06 0.00 - 0.40 10*3/mm3 08/19/2024 3:23 PM EDT [facility] Basophils, Absolute 0.02 0.00 - 0.20 10*3/mm3 08/19/2024 3:23 PM EDT [facility] Immature Grans, Absolute 0.03 0.00 - 0.05 10*3/mm3 08/19/2024 3:23 PM EDT [facility] nRBC 0.0 0.0 - 0.2 /100 WBC 08/19/2024 3:23 PM EDT [facility] Blood Line / Unknown 08/19/2024 3: 02 PM EDT 08/19/2024 3:10 PM EDT Kt Fan DO LAB BLOOD ORDERABLES Final Result [facility]
[address] [place] [address], * (ABNORMAL) Urinalysis With Microscopic If Indicated (No Culture) - Urine, Clean Catch (08/19/2024 3:02 PM EDT) Color, UA Yellow Yellow, Straw 08/19/2024 3:33 PM EDT [facility] Appearance, UA Clear Clear 08/19/2024 3:33 PM EDT [facility] pH, UA >=9.0(H) 5.0 - 8.0 08/19/2024 3:33 PM EDT [facility] Specific [place], UA 1.018 1.005 - 1.030 08/19/2024 3:33 PM EDT [facility] Glucose, UA Negative Negative 08/19/2024 3:33 PM EDT [facility] Ketones, UA 15 mg/dL (1+)(A) Negative 08/19/2024 3:33 PM EDT [facility] Bilirubin, UA Negative Negative 08/19/2024 3:33 PM EDT [facility] Blood, UA Negative Negative 08/19/2024 3:33 PM EDT [facility] Protein, UA 30 mg/dL (1+)(A) Negative 08/19/2024 3:33 PM EDT [facility] Leuk Esterase, UA Negative Negative 08/19/2024 3:33 PM EDT [facility] Nitrite, UA Negative Negative 08/19/2024 3:33 PM EDT [facility] Urobilinogen, UA 1.0 E.U./dL 0.2 - 1.0 E.U./dL 08/19/2024 3:33 PM EDT [facility] Urine Urine specimen obtained by clean catch procedure / Unknown Collection / Unknown 08/19/2024 3:02 PM EDT 08/19/2024 3:13 PM EDT us Kt Fan DO URINE ORDERABLES Final Resu lt [facility]
[address] [place] [address], [place] [phone] * Amylase (08/19/2024 3:02 PM EDT) Amylase 73 28 - 100 U/L 08/19/2024 3:36 PM EDT [facility] Blood Line / Unknown 08/19/2024 3: 02 PM EDT 08/19/2024 3:10 PM EDT us Kt Fan DO LAB BLOOD ORDERABLES Final Result Performing Organization Address [facility] Co de Phone Number [facility]
[address] [place] [address], [place] [phone] * Lipase (08/19/2024 3:02 PM EDT) Lipase 13 13 - 60 U/L 08/19/2024 3:36 PM EDT [facility] Blood Line / Unknown 08/19/2024 3: 02 PM EDT 08/19/2024 3:10 PM EDT us Kt Fan DO LAB BLOOD ORDERABLES Final Result Performing Organization Address City/[facility]/ZIP Co de Phone Number [facility]
[address] [place] [address], [place] [phone] * (ABNORMAL) Comprehensive Metabolic Panel (08/19/2024 3:02 PM EDT) Glucose 75 65 - 99 mg/dL 08/19/2024 3:38 PM EDT [facility] BUN 3.6(L) 6.0 - 20.0 mg/dL 08/19/2024 3:38 PM T [facility] Creatinine 0.51(L) 0.57 - 1.00 mg/dL 08/19/2024 3:38 PM EDT [facility] Sodium 137 136 - 145 mmol/L 08/19/2024 3:38 PM T [facility] Potassium 2.6(LL) 3.5 - 5.2 mmol/L 08/19/2024 3:38 PM [facility] Comment:Specimen hemolyzed. Result may be falsely elevated. Chloride 99 98 - 107 mmol/L 08/19/2024 3:38 PM [facility] CO2 24.2 22.0 - 29.0 mmol/L 08/19/2024 3:38 PM T [facility] Calcium 8.8 8.6 - 10.5 mg/dL 08/19/2024 3:38 PM T [facility] Total Protein 6.6 6.0 - 8.5 g/dL 08/19/2024 3:38 PM [facility] Albumin 3.4(L) 3.5 - 5.2 g/dL 08/19/2024 3:38 PM [facility] ALT (SGPT) 10 1 - 33 U/L 08/19/2024 3:38 PM T [facility] AST (SGOT) 22 1 - 32 U/L 08/19/2024 3:38 PM T [facility] Alkaline Phosphatase 64 39 - 117 U/L 08/19/2024 3:38 PM [facility] Total Bilirubin 0.5 0.0 - 1.2 mg/dL 08/19/2024 3:38 PM T [facility] Globulin 3.2 gm/dL 08/19/2024 3:38 PM T [facility] Comment:Calculated Result A/G Ratio 1.1 g/dL 08/19/2024 3:38 PM EDT [facility] BUN/Creatinine Ratio 7.1 7.0 - 25.0 08/19/2024 3:38 PM EDT [facility] Anion Gap 13.8 5.0 - 15.0 mmol/L 08/19/2024 3:38 PM EDT [facility] eGFR 126.6 >60.0 mL/min/1.7 3 08/19/2024 3:38 PM EDT [facility] Blood Line / Unknown 08/19/2024 3: 02 PM EDT 08/19/2024 3:10 PM EDT [facility] - 08/19/2024 3:38 PM [...] Fan DO LAB BLOOD ORDERABLES Final Result [facility]
[address] [place] [address], * Type & Screen (08/19/2024 3:02 PM EDT) ABO Type O 08/19/2024 3:51 PM EDT [facility] RH type Positive 08/19/2024 3:51 PM EDT [facility] Antibody Screen Negative 08/19/2024 3:51 PM EDT [facility] T&S Expiration Date 08/22/2024 11:59:59 PM 08/19/2024 3:51 PM EDT [facility] Blood Line / Unknown 08/19/2024 3: 02 PM EDT 08/19/2024 3:15 PM EDT Kt Fan DO BLOOD BANK TEST ORDERABLES Edited Result - Final [facility]
[address] [place] [address], documented in this encounter Visit Diagnoses Diagnosis [...] BPA Driven Protocol Open Order & Select [facility] Electrolyte Replacement Protocol Algorithm to [...] documented as of this encounter Care Teams Transit Police Officer Relationship Specialty Start Date End Date Norma Friedman APRN [address] [place] G3 RAFAELA APPIAH [address] PCP - General Family Medicine 05/14/24 documented as of this encounter
--- OUTSIDE RECORDS SUMMARY | 2024-08-20 13:44 | XMS_ITS | Encounter Summary ---
[facility] Address [address] [place] [phone] Care Team Providers Care Transportation Aid Name Role Phone IvyKade goldbergdev FERNÁNDEZ Primary Care Provider + [phone] Reason for Visit * Auth/Cert (Routine) Specialty Diagnoses / Procedures Referred By Contac t Referred To Contact Referral ID Status Reason Start Date Expiration Date Visits Re quested Visits Authorized 1 1 Encounter Details Date Type Department Care Team (Late st Contact Info) Description 08/20/2024 1:44 PM EDT Anesthesia Event [facility] ENDO SUITES [address] [place] [address] Akash Anguiano MD [address] [place] [address] Liborio Peralta CRNA [address] [place] [address] Anesthesia Record Procedure Summary Procedure Name Responsible [...] drink = 0.6 oz pur e alcohol) [facility] Utilities Answer Date Recorded In [...] at all 05/28/2024 [facility] [place] of Occupat ional Health - Occupational Stress [...] 1 Month) No 08/20/2024 1:23 PM EDT iDego Cabrera RN * Calculated C-SSRS Risk Score (Lifetime/Recent) Answer Date of Assessment Author No Risk Indicated 08/20/2024 1:23 PM EDT Polly Lacey RN * [place] Suicide Severity Rating Scale (Screener/Recent Self-Report) Question Answer Date of Assessment Author 6. Suicidal Behavior (Lifetime) No 1:23 PM EDT Polly Cabrera RN documented as of this encounter OR Notes * Anesthesia Postprocedure Evaluation - Liborio Peralta CRNA - 08/20/2024 2:18 PM EDT Patient: Whitney Presley Procedure Summary Date: 08/20/24 Room / Location: [facility] ENDOSCOPY 3 / [facility] Anesthesia Start: [...] sounds: normal. 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 Plan discussed with BLADE FILER. CODE STATUS: documented in this encounter Plan of Treatment Upcoming Encounters Date Type Department Care Team (Late st Contact Info) Description 01/20/2025 3:30 PM EST Office Visit [facility] [address] [facility] [address] Robbin Escalante MD [address] [address] documented as of this encounter Procedures Procedure [...] and Staff Patient location during procedure: [place] BLADE FILER/CAA: Junior Zbigniew Jain, DAYNE Indications and Patient [...] documented as of this encounter Care Teams Transportation Aid Relationship Specialty Start Date End Date Norma Friedman APRN [address] [place] [address] [place] [address] PCP - General Family Medicine 05/14/24 documented as of this encounter
--- OUTSIDE RECORDS SUMMARY | 2024-08-29 10:00 | XMS_ITS | Encounter Summary ---
[facility] Address [address] [place] [address] Care Team Providers Care Physician Office Secretary Name Role Phone IvyKade goldbergjoseseven JOLENE Primary Care Provider + [phone] Reason for Visit * Reason Comments Problem Encounter Details Date Type Department Care Team (Late st Contact Info) Description 08/29/2024 10:00 AM EDT Routine [facility] OBGYN [address] [place] [address] Staci Jain MD [address] [place] [address] [place]: 26w4d Social History Tobacco Use Types Packs/Day Years Used Date Smoking Tobacco: Never Smokeless Tobacco: Never Alcohol Use Standard Drinks/Week Comments Never 0 (1 standard drink = 0.6 oz pur e alcohol) [facility] Utilities Answer Date Recorded In the past 12 months has [employer], gas, oil, or water [employer] threatened to shut off services in your [...] and heating? Not hard at all 05/28/2024 [facility] [place] [facility] - Occupational Stress [...] GED or equivalent No 05/28/2024 Preferred Language Cymro 05/28/2024 PHQ-2 Answer Date Recorded Patient Health [...] Office Visit [facility] GASTROENTEROLOGY [address] [address] Robbin Escalante MD [address] [address] documented as of this encounter Procedures Procedure [...] 08/30/2024 6:09 AM EDT Performed at: [address] [id number] Supervisor Vendor Quality: Kevin Harman MD, Phone: [phone] Patient Fasting: N us Staci Jain MD LAB BLOOD ORDERABLES Final Result [facility] (AMBULATORY) [address] [place] [address], [facility] [address] [place] [address], * (ABNORMAL) Comprehensive Metabolic Panel (08/29/2024 11:05 [...] 11:0 5 AM EDT 08/29/2024 Narrative [facility] (AMBULATORY) - 08/30/2024 6:09 AM EDT Performed at: 01 - [place] [address] [address] [place], [place] [id number] Supervisor Vendor Quality: Kevin Harman MD, Phone: [phone] Patient Fasting: N Staci Jain MD LAB BLOOD ORDERABLES Final Result Performing Organization Address City/[facility]/ZIP Co de Phone Number [facility] ([facility]) [address] [place] [address], [place] [phone] [facility] [address] [place] [address], [place] [phone] * (ABNORMAL) POC Urinalysis Dipstick (08/29/2024 10:13 AM EDT) Glucose, UA Negative Negative mg/dL [facility] Protein, POC Trace(A) Negative mg/dL [facility] Urine 08/29/2024 10:1 3 AM EDT us Staci Jain MD POINT OF CARE TEST OR DERABLES Final Result Performing Organization Address City/[facility]/ZIP Co de Phone Number [facility]
[address] [place] [address], documented in this encounter Visit Diagnoses Diagnosis [...] documented as of this encounter Care Teams Physician Office Secretary Relationship Specialty Start Date End Date Norma Friedman APRN [address] [place] G[address] RAFAEL[place] APPIAH [address] PCP - General Family Medicine 05/14/24 documented as of this encounter
--- NOTE | 2024-09-19 | US_ITS ---
PROCEDURE INFORMATION: Exam: US , Limited Exam date and time: 09/19/2024 11:23 PM Age: 34 years old Clinical indication: status abnormalities: ; growth - poor; Single gestation; Third trimester (>=28 weeks 0 days); ; Ptl-- low potassium-- tachycardia TECHNIQUE: Imaging protocol: Real-time ultrasound of the maternal uterus with image documentation. Exam focused on the clinical indication. COMPARISON: US OB TRANSVAGINAL 03/27/2024 8:45 PM FINDINGS: Last menstrual period: EFW at 1249 g (11 percentile based on LMP and 27 percentile based on AUA) Gestation: Single live IUP with cephalic presentation and FHR of 134. Amniotic fluid appropriate for age with ANURADHA of 16.4 cm. Placenta anterior without evidence of previa. Cervix length normal at 2.5 cm. BIOMETRY: Biparietal diameter (BPD): 7.14 cm - 28 weeks 5 days Head circumference (HC): 26.5 cm - 29 weeks 0 days Abdominal circumference (AC): 23.7 cm - 28 weeks 1 day Femur length (FL): 5.6 cm - 29 weeks 2 days biometric ratios: HC/AC - 1.12 (normal range 0.990-1.21) IMPRESSION: Single live IUP with ultrasound age of 28 weeks 6 days and corresponding DUSTY 12/06/2024. Size and dates are size and dates are concordant. PROCEDURE INFORMATION: Exam: US Biophysical Profile Without Non-Stress Test Exam date and time: 09/19/2024 11:23 PM Age: 34 years old Clinical indication: status abnormalities: ; growth - poor; Single gestation; Third trimester (>=28 weeks 0 days); ; Ptl-- low potassium-- tachycardia TECHNIQUE: Imaging protocol: US biophysical profile without non-stress testing. COMPARISON: US OB TRANSVAGINAL 03/27/2024 8:45 PM FINDINGS: BIOPHYSICAL PROFILE: breathing (BPP): 2 out of 2. gross body movement (BPP): 2 out of 2. tone (BPP): 2 out of 2. Amniotic fluid (BPP): 2 out of 2. IMPRESSION: Biophysical profile score is 8 out of 8.
--- NOTE | 2024-09-19 | US_ITS ---
PROCEDURE INFORMATION: Exam: US , Transvaginal Exam date and time: 09/19/2024 11:58 PM Age: 34 years old Clinical indication: Lmp or gestational age (in weeks): 29w4d; Antepartum complications; Other: Ptl; ; Additional info: Ptl-- sga-- cx length TECHNIQUE: Imaging protocol: Real-time transvaginal obstetrical ultrasound of the maternal pelvis with image documentation. Transvaginal imaging was used for better evaluation of the fetus, adnexa, and/or cervix. COMPARISON: US OB BIOPHYSICAL PROFILE 09/19/2024 11:23 PM FINDINGS: Gestation: Limited ultrasound to assess cervix length performed. Cervix length ranges between 2.3 and 2.7 cm. No internal funneling. Fetus cephalic in presentation. IMPRESSION: Relatively short cervix length measuring as low as 2.3 cm.
--- OUTSIDE RECORDS SUMMARY | 2024-09-19 16:03 | XMS_ITS | Clinical Summary ---
Author Organization [facility] [place] [address] Phone Care Team Providers Care Er Manager Name Role Phone Unavailable Primary Care [...] migh t be different from the original. [facility] - Edwardo Ojeda MD Interventional Pain Protocol: NS Appt 03/29/22 Letter Sent Maxime report completed (EVERY 3 MONTHS) ( 03/23/22) Pharmacy: [facility] [address] [place] [phone] - [address] [facility] south - [phone] No known active problems Social History Tobacco [...] patient's age to complete this topic Insurance [employer] [facility] [place] [address] [place] [id number] [facility] [employer] [facility] [place]
--- OUTSIDE RECORDS SUMMARY | 2024-09-19 16:03 | XMS_ITS | Encounter Summary ---
[facility] Address [address] [place] [address] Care Team Providers Care Cloth Grader Name Role Phone Elder Norma FERNÁNDEZ Primary Care Provider + [phone] Encounter Details Date Type Department Care Team (Latest Contact Info) Description 08/29/2024 Travel Social History Tobacco Use Types Packs/Day Years Used Date Smoking Tobacco: Never Smokeless Tobacco: Never Alcohol Use Standard Drinks/Week Comments Never 0 (1 standard drink = 0.6 oz pur e alcohol) [facility] Utilities Answer Date Recorded In the past 12 months has In [employer], gas, oil, or water company threatened [...] heating? Not hard at all 05/28/2024 [facility] [place] of Occupat ional Health - Occupational Stress [...] GED or equivalent No 05/28/2024 Preferred Language Filipino 05/28/2024 PHQ-2 Answer Date Recorded Patient Health [...] Office Visit [facility] [address] [facility] [address] [place] [id number] Robbin Escalante MD [address] [facility] [address] [place] [address] documented as of this encounter Visit Diagnoses Not on filedocumented in this encounter Additional Health Concerns Assessment Noted Time PHQ-2 Depression Total Score: 2 05/28/19 25 4:39 PM EDT documented as of this encounter Care Teams Cloth Grader Relationship Specialty Start Date End Date Norma Friedman APRN [address] [place] [address] [place] [address] PCP - General Family Medicine 05/14/24 documented as of this encounter
--- OUTSIDE RECORDS SUMMARY | 2024-09-19 16:04 | XMS_ITS | Encounter Summary ---
[facility] Address [address] [place] [address] Care Team Providers Care Greens Planter Name Role Phone Ivyashlyn Norma FERNÁNDEZ Primary Care Provider + [phone] Encounter Details Date Type Department Care Team (Late st Contact Info) Description 08/27/2024 Telephone [facility] OBGYN [address] [place] [address] Staci Jain MD [address] [facility] [address] [place] [address] Social History Tobacco Use Types Packs/Day Years Used Date Smoking Tobacco: Never Smokeless Tobacco: Never Alcohol Use Standard Drinks/Week Comments Never 0 (1 standard drink = 0.6 oz pur e alcohol) [facility] Utilities Answer Date Recorded In the past 12 months has [employer], [employer], oil, or water [employer] threatened to shut off services in your [...] heating? Not hard at all 05/28/2024 [facility] [place] of Occupat ional Health - Occupational Stress [...] Office Visit [facility]STR[facility] [address] [phone] Robbin Escalante MD [address] [address] documented as of this encounter Visit Diagnoses Diagnosis History of hypokalemia- Primary documented in this encounter Additional Health Concerns Assessment Noted Time PHQ-2 Depression Total Score: 2 05/28/19 25 4:39 PM EDT documented as of this encounter Care Teams Greens Planter Relationship Specialty Start Date End Date Norma Friedman APRN [address] [place] [address] [place] [address] PCP - General Family Medicine 05/14/24 documented as of this encounter
--- OUTSIDE RECORDS SUMMARY | 2024-09-19 16:04 | XMS_ITS | Encounter Summary ---
[facility] [address] [place] [id number] Care Team Providers Care Surgical Brace Maker Name Role Phone Elder Norma FERNÁNDEZ Primary Care Provider + [phone] Encounter Details Date Type Department Care Team (Late st Contact Info) Description 07/07/2024 Results Follow-Up [facility] OBGYN [address] [place] [address] [place] [phone] Kelly Delgado APRN [address] [facility] [address] [place] [address] Social History Tobacco Use Types Packs/Day Years Used Date Smoking Tobacco: Never Smokeless Tobacco: Never Alcohol Use Standard Drinks/Week Comments Never 0 (1 standard drink = 0.6 oz pur e alcohol) [facility] Utilities Answer Date Recorded In the past 12 months has [employer], gas, oil, or water [employer] threatened to shut off services in [...] and heating? Not hard at all 05/28/2024 [facility] of Occupat ional Health - [...] equivalent No 05/28/2024 Preferred Language Citizen Of [place] 05/28/2024 PHQ-2 Answer Date Recorded Patient Health [...] Visit [facility] [address] [facility] [address] Robbin Escalante MD [address] [address] documented as of this encounter Visit Diagnoses Not on filedocumented in this encounter Additional Health Concerns Assessment Noted Time PHQ-2 Depression Total Score: 2 05/28/19 25 4:39 PM EDT documented as of this encounter Care Teams Surgical Brace Maker Relationship Specialty Start Date End Date Norma Friedman APRN [address] [place] [address] [place] [address] PCP - General Family Medicine 05/14/24 documented as of this encounter
--- OUTSIDE RECORDS SUMMARY | 2024-09-19 16:04 | XMS_ITS | Encounter Summary ---
Author Organization Healthcare Address [address] [place] [address] Care Team Providers Care Electric Utility Lineworker Name Role Phone Unavailable Primary Care Provider Unavailabl e Encounter Details Date Type Department Care Team ([facility] Contact Info) Description 09/17/2024 Telephone [facility] Nephrology, Bone & Mineral Metabolism [address] [facility], [address] [place] [address] Sherley Gold, OFFICE TECHNOLOGY PROFESSOR GS - 7 MAIN MEDICAL-SURGICAL Social History [...] Upcoming Encounters Date Type Department Care Team ([facility] Contact Info) Description 09/23/2024 10:00 AM EDT Office Visit Medical Office Building Obstetrics and Gynecology [address], [address] [place] [address] Liborio Weller MD [address] [facility] [address] [place] [address] 09/25/2024 2:20 PM EDT Office Visit [facility] Nephrology, Bone & Mineral Metabolism [address] [facility], [address] [place] [address] documented as of this encounter Visit Diagnoses Not on filedocumented in this encounter
--- OUTSIDE RECORDS SUMMARY | 2024-09-19 16:04 | XMS_ITS | Clinical Summary ---
Author Organization [facility] Address [address] [place] [address] Care Team Providers Care Drug Regulatory Affairs Specialist Name Role Phone Norma Friedman APRN Primary Care Provider + [phone] Allergies Active Allergy Reactions Criticality Noted Date [...] Department Care Team Description 5 Results Follow-Up [facility] OBGYN [address] [place] [address] Rob Wharton MD 5 Telephone [facility] OBGYN [address] [facility] [address] [place] [address] Rob Wharton MD 5 10:00 AM EDT Routine [facility] OBGYN [address] [place] [address] Rob Wharton MD GA: 26w4d 5 Travel 5 Telephone [facility] OBGYN [address] [facility] [address] [place] [address] Rob Wharton MD 5 Telephone [facility]YN [address] [place] [address] Rob Wharton MD 5 1:44 PM EDT Anesthesia Event [facility] ENDO SUITES [address] [place] [address] Akash Anguiano MD Lanham, John, CRNA 5 1:33 PM EDT - 5 2:05 PM EDT Surgery [facility] ENDO SUITES [address] [place] [address] Blu Alvarado MD ESOPHAGOGASTRODUODENOSCOPY [46321 (CPT )] 5 1:59 PM EDT - 5 4:28 PM EDT Hospital Encounter [facility] ANTEPARTUM [address] [place] [address] Rob Wharton MD Brunner, Mark I, MD Dysphagia, unspecified type (Primary Dx) Discharge Disposition: Home or Self Care 5 10:15 AM EDT Routine [facility] OBGYN [address] [place] [address] Jacey Mathews, TRAILER RENTAL CLERK GA: 25w1d 5 Telephone [facility] OBGYN [address] [place] [address] Jacey Mathews, TRAILER RENTAL CLERK 5 Travel 5 Patient Outreach [facility] LABOR DELIVERY [address] [place] [address] Christy Zabala RN 5 9:10 AM EDT Routine [facility] OBGYN [address] [facility] [address] [place] [address] Rob Wharton MD GA: 21w1d 5 8:00 AM EDT Office Visit [facility] MATERNAL MEDICINE [address] [facility] [address] [place] [address] Sebastian Larsen MD History of prior with small for gestational age (Primary Dx) 5 7:44 AM EDT - 5 11:59 PM EDT Hospital Encounter [facility] US PER DIAG CTR [address] [place] [address] Kelly Delgado, TRAILER RENTAL CLERK care, antepartum, unspecified ; High risk due to history of labor, antepartum; History of prior with small for gestational age Discharge Disposition: Home or Self Care 5 Travel 5 Results Follow-Up [facility] [address] [facility] [address] [place] [address] Kelly Delgado, JOLENE 5 10:10 AM EDT Routine [facility] OBGYN [address] [facility] [address] [place] [address] Kelly Delgado, TRAILER RENTAL CLERK GA: 18w5d 5 9:30 AM EDT Ancillary Procedure [facility] OBGYN [address] [facility] [address] [place] [id number] care in second trimester, unspecified 5 Travel 5 Telephone [facility]YN [address] [facility] [address] [place] [address] Uriel Russ MD TRANSFER OF CARE REQ 5 10:15 PM EDT - 5 11:59 PM EDT Hospital Encounter [facility] LABOR DELIVERY [address] [place] [address] Rob Wharton MD Mirsky, Elizabeth, MD Discharge Disposition: Home or Self Care 5 Travel 5 Telephone [facility]YN [address] [facility] [address] [place] [address] Uriel Russ MD [facility], OB 5 Telephone [facility] OBGYN [address] [place] [address] Uriel Russ MD [facility] 5 E-Visit [facility] [address] [place] [address] E-VisitToni MD 5 Results Follow-Up [facility] OBGYN [address] [place] [address] Uriel Russ MD 5 3:20 PM EDT Routine [facility] OBGYN [address] [place] [address] Uriel Russ MD GA: 17w2d 5 3:00 PM EDT Ancillary Procedure [facility] OBGYN [address] [place] [address] Bleeding in early (Primary Dx) 5 Travel 5 Telephone [facility] OBGYN [address] [place] [address] Uriel Russ MD from Last [...] Recorded In the past 12 months has [employer], gas, oil, or water [employer] threatened to shut off services in your [...] and heating? Not hard at all 05/28/2024 [place] of Occupat ional Health - Occupational Stress [...] Description 01/20/2025 3:30 PM EST Office Visit [facility] GASTROENTEROLOGY [address] [address] Robbin Escalante MD [address] [address] Health Maintenance Due Date Last Done Comments [...] 08/20/2024 1:55 PM EDT Dysphagia, unspecified type FL ESOPHAGOGASTRODUODENOSCOP Y TRANSORAL DIAGNOSTIC 08/20/2024 1:44 PM EDT Dysphagia, unspecified type UPPER GI ENDOSCOPY 08/20/2024 1:09 PM EDT BASIC METABOLIC PANEL STAT 08/20/2024 5:25 AM EDT POTASSIUM STAT 08/19/2024 8:53 PM EDT ABORH 2ND SPECIMEN VERIFICATION STAT 08/19/2024 4:34 PM EDT NONSTRESS TEST Routine 08/19/2024 4:17 PM EDT [facility] Routine 08/19/2024 3:25 PM EDT [...] 10:02 AM EDT Multigravida in second trimester [facility] Routine 07/22/2024 9:10 [...] resultswithin the time period is included. Pathologist [facility] WBC 9.26 3.40 - 10.80 10*3/mm3 [facility] [...] 6:09 AM EDT Performed at: 01 - [address] [id number] Appeals Rn: Kevin Harman MD, Phone: [phone] Patient Fasting: N us Rob Wharton MD LAB BLOOD ORDERABLES Final Result [facility] (AMBULATORY) [address] [place] [address], [place] [phone] [facility] [address] [address], [place] [phone] * (ABNORMAL) Comprehensive Metabolic Panel (08/29/2024 11:05 AM EDT) Only the most recent of3 resultswithin the time period is included. [facility] Glucose 72 65 - 99 mg/dL [facility] [...] - 08/30/2024 6:09 AM EDT Performed at: [address] [place] [id number] Appeals Rn: Kevin Harman MD, Phone: [phone] Patient Fasting: N Rob Wharton MD LAB BLOOD ORDERABLES Final Result Performing Organization Address [facility] Co de Phone Number [facility] (AMBULATORY) [address] [place] [address], [place] [phone] [facility] [address] [place] [address], [place] [phone] * (ABNORMAL) POC Urinalysis Dipstick (08/29/2024 10:13 AM EDT) Only the most recent of5 resultswithin the time period is included. Glucose, UA Negative Negative mg/dL [facility] Protein, POC Trace(A) Negative mg/dL [facility] Urine 08/29/2024 10:1 3 AM EDT Rob Wharton MD POINT OF CARE TEST OR DERABLES Final Result Performing Organization Address City/[facility]/ZIP Co de Phone Number [facility]OR[facility]
[address] [place] [address], [place] [phone] * BH AN ETT AIRWAY (08/20/2024 2:02 PM EDT) Narrative Liborio Peralta CRNA - 08/20/2024 2:02 PM EDT Liborio Peralta CRNA 08/20/2024 2:03 PM Airway Reason: elective Date/Time: 08/20/2024 2:02 PM Airway not difficult General Information and Staff Patient location during procedure: OR MANUFACTURING SUPPORT ENGINEER/CAA: Junior Zbigniew Wharton CRNA Indications and Patient [...] bilaterally with symmetric chest rise and fall [facility] MANUFACTURING SUPPORT ENGINEER ANESTHESIA ORDERABLES Final Res ult * Tissue Pathology Exam (08/20/2024 1:55 PM EDT) Case Report Surgical Pathology Report Case: [id number] Authorizing Provider: Blu Alvarado MD Collected: 08/20/2024 [...] Final Result [facility] LABORATORY
[address] [place] [address], * Upper GI Endoscopy (08/20/2024 1:09 PM EDT) us Blu Alvarado MD INTERFACE NEEDS Final Result * (ABNORMAL) Basic Metabolic Panel (08/20/2024 5:25 AM EDT) Glucose 84 65 - 99 mg/dL 08/20/2024 6:13 AM EDT [facility] BUN 2.3(L) 6.0 - 20.0 mg/dL 08/20/2024 6:13 AM EDT [facility] Creatinine 0.51(L) 0.57 - 1.00 mg/dL 08/20/2024 6:13 AM EDT [facility] Sodium 139 136 - 145 mmol/L 08/20/2024 6:13 AM EDT [facility] Potassium 3.5 3.5 - 5.2 mmol/L 08/20/2024 6:13 AM EDT [facility] Chloride 109(H) 98 - 107 mmol/L 08/20/2024 6:13 AM EDT [facility] CO2 23.5 22.0 - 29.0 mmol/L 08/20/2024 6:13 AM EDT [facility] Calcium 7.8(L) 8.6 - 10.5 mg/dL 08/20/2024 6:13 AM EDT [facility] LAB[facility] BUN/Creatinine Ratio 4.5(L) 7.0 - 25.0 08/20/2024 6:13 AM EDT [facility] Anion Gap 6.5 5.0 - 15.0 mmol/L 08/20/2024 6:13 AM EDT [facility] eGFR 126.6 >60.0 mL/min/1.7 3 08/20/2024 6:13 AM EDT [facility] Blood Venipuncture / Unknown 08/20/2024 5:25 AM EDT 08/20/2024 5:46 AM EDT [facility] LABORATORY - 08/20/2024 6:13 AM EDT [...] MD LAB BLOOD ORDERABLES Final Resu lt [facility] LABORATORY
[address] [place] [address], * (ABNORMAL) Potassium (08/19/2024 8:53 PM EDT) Potassium 2.7(L) 3.5 - 5.2 mmol/L 08/19/2024 9:20 PM EDT [facility] LABOR[facility]ORY Blood Venipuncture / Unknown 08/19/2024 8:53 PM EDT 08/19/2024 9:04 PM EDT Kt Fan DO LAB BLOOD ORDERABLES Final Result Performing Organization Address City/[facility]/ZIP Co de Phone Number [facility] LABORATORY
[address] [place] [address], * ABO RH Specimen Verification (08/19/2024 4:34 PM EDT) ABO Type O 08/19/2024 7:39 PM EDT [facility] BB LABORATORY RH type Positive 08/19/2024 7:39 PM EDT [facility] BB LABORATORY Blood Venipuncture / Unknown 08/19/2024 4:34 PM EDT 08/19/2024 4:53 PM EDT Rob Wharton MD BLOOD BANK TEST ORDER FRANCO Final Result Performing Organization Address [facility] de Phone Number [facility] LABORATORY
[address] [place] [address], * [facility] (08/19/2024 3:25 PM EDT) Only the most recent of2 resultswithin the time period is included. Anatomical Region Laterality Modality Ultrasound 08/19/2024 3:09 PM EDT Narrative 08/19/2024 4:54 PM EDT PAT NAME: CAROLE GIRARD MED REC#: [id number] DA: [id number] PAT GEND: F PAT TYPE: E EXAM TRAVIS: [id number] REF PHYS ROB WHARTON Comparison Studies The [...] EFW (oz) 9 oz EFW by: Hadlock (OPI-IW-UQ-FL) Extended Cav. septi pel. tr 4.7 mm Mining Consultant 3.8 mm CM 7.5 mm 84% Nicolaides [...] Heart / Thorax 3-vessel view: Appears normal 9-uxfyds-wutzwdy view: Appears normal Stomach: Appears normal Kidneys: [...] in 4wks for growth. Coding ======= Description: 64034-22 Follow Up Integrity Assessor: RT Annetta Hartmann , [facility] Physician: Jo Chappell MD Electronically signed by: Jo Chappell MD at: 16:54 Procedure Note Jo Chappell MD - 08/19/2024 PAT NAME: CAROLE GIRARD MED REC#: [id number] DA: [id number] PAT GEND: F PAT TYPE: E EXAM TRAVIS: [id number] REF PHYS ROB WHARTON Comparison Studies The findings of this study are compared to the prior ultrasound studydated 07/22/24 Patient Status Inpatient Indication ======== History of c/s x1. History of . Vaginal bleeding. Maternal Assessment Ngyzui802 cm Height (ft)5 ft Height (in)4 in Xuziwf60 kg Weight (lb)158 lb BMI27.31 kg/m Method ======= Transabdominal ultrasound examination. View: Limited by patient bodyhabitus ========= Love . Number of fetuses: 1 Dating ====== Method of dating:based on stated DUSTY GA by prior [id number] w + 1 d DUSTY by prior assessment:12/01/2024 Ultrasound examination on:08/19/2024 GA by U/S based upon:AC, BPD, Femur, HC GA by U/S24 w + 2 d DUSTY by U/S:12/07/2024 Previous dating:based on stated DUSTY, selected on 07/22/2024 Agreed DUSTY of previous datin12/01/2024 Assigned:based on stated DUSTY, selected on 08/19/2024 Assigned GA25 w + 1 d Assigned DUSTY:12/01/2024 [id number] d Biometry Standard BPD57.6 mm 23w 4d 5% Hadlock OFD81.6 mm 26w 4d 88% Jamal HC225.7 mm 24w 4d 13% Hadlock Cerebellum tr28.9 mm 25w 2d 62% Hill AC194.9 mm 24w 1d 15% Hadlock Femur44.9 mm 24w 6d 27% Hadlock Xogcnfx59.3 mm 25w 3d 50% Jamal HC / AC1.16 AXT767 g 24w 2d 16% Hadlock EFW (lb)1 lb EFW (oz)9 oz EFW by:Hadlock (HZI-WJ-JX-FL) Extended Cav. septi pel. tr4.7 mm Vp3.8 mm CM7.5 mm 84% Nicolaides Head / Face / Neck Cephalic index0.71 <1% Nicolaides Extremities / Bony Struc FL / BPD0.78 FL / HC0.20 FL / AC0.23 Other Structures VRE868 bpm General Evaluation Cardiac activity present. FHR [...] normal Heart / Thorax 3-vessel view:Appears normal 3-opneqj-bgpzpcu view:Appears normal Stomach:Appears normal Kidneys:Appears normal Bladder:Appears normal Gender:female Wants to know gender:yes Maternal Structures Uterus / Cervix Cervix:Visualized Approach:Transabdominal Cervical caiybu06.9 mm Doppler Arterial Umbilical A PI1.01 32% [...] office in 4wks for growth. Coding ======= Description:18907-10 Follow Up Integrity Assessor: RT Annetta Hartmann , [facility] Physician: Jo Chappell MD Electronically signed by: Jo Chappell MD at: 16:54 us Kt Fan DO [facility] US ORDERABLES Final Res ult [...] Resu lt [facility] LABORATORY
[address] [place] [id number], [place] [phone] * (ABNORMAL) Urinalysis With Microscopic If Indicated [...] EDT [facility] LAB[facility] Specific [place], UA 1.018 1.005 - 1.030 08/19/2024 3:33 [...] lt [facility] LABOR[facility]ORY
[address] [place] [address], * (ABNORMAL) CBC Auto Differential (08/19/2024 3:02 [...] - 0.20 10*3/mm3 08/19/2024 3:23 PM T [facility] Immature Grans, Absolute 0.03 0.00 - 0.05 10*3/mm3 08/19/2024 3:23 PM EDT [facility] nRBC 0.0 0.0 - 0.2 /100 WBC 08/19/2024 3:23 PM [facility] Blood Line / Unknown 08/19/2024 3: 02 PM EDT 08/19/2024 3:10 PM EDT Kt Fan DO LAB BLOOD ORDERABLES Final Result Performing Organization Address City/[facility]/ZIP Co de Phone Number [facility] LABORATORY
[address] [place] [address], [place] [phone] * Protein / Creatinine Ratio, Urine - [...] Resu lt [facility] LABORATORY
[address] [place] [address], [place] [phone] * Type & Screen (08/19/2024 3:02 PM [...] Edited Result - Final Performing Organization Address [facility] de Phone Number [facility] LABORATORY
[address] [place] [address], [place] [phone] * (ABNORMAL) Magnesium (08/19/2024 3:02 PM EDT) Magnesium 1.5(L) 1.6 - 2.6 mg/dL 08/19/2024 5:12 PM EDT [facility] Blood Line / Unknown 08/19/2024 3: 02 PM EDT 08/19/2024 3:10 PM EDT us Kt Fna DO LAB BLOOD ORDERABLES Final Result Performing Organization Address [facility] Phone Number [facility] LABOR[facility]ORY
[address] [place] [address], [place] [phone] * Lipase (08/19/2024 3:02 PM EDT) Lipase 13 13 - 60 U/L 08/19/2024 3:36 PM EDT [facility] Blood Line / Unknown 08/19/2024 3: 02 PM EDT 08/19/2024 3:10 PM EDT us Kt Cavazos Mita SHAH LAB BLOOD ORDERABLES Final Result Performing Organization Address [facility] Co de Phone Number [facility] LABORATORY
[address] [place] [address], [place] [phone] * Amylase (08/19/2024 3:02 PM EDT) Amylase 73 28 - 100 U/L 08/19/2024 3:36 PM EDT [facility] Blood Line / Unknown 08/19/2024 3: 02 PM EDT 08/19/2024 3:10 PM EDT us Kt Fan DO LAB BLOOD ORDERABLES Final Result [facility] LABORATORY
[address] [place] [address], * [place] Ob 14 + Weeks Single or First Gestation (07/05/2024 10:17 AM EDT) Anatomical Region Laterality Modality Body Ultrasound 07/05/2024 10:2 8 AM EDT Narrative 07/09/2024 7:02 PM EDT PAT NAME: CAROLE GIRARD MED REC#: [id number] DA: [id number] PAT GEND: F PAT TYPE: O EXAM TRAVIS: [id number] REF PHYS URIEL RUSS Manager Utility Comments Still need heart views and PCI [...] EFW (oz) 9 oz EFW by: Hadlock (OTU-ZW-AA-FL) Extended Mining Consultant 6.4 mm CM 3.3 mm 11% Nicolaides [...] Heart / Thorax 3-vessel view: not visualized 1-meprvu-ykusebz view: not visualized Diaphragm: Appears normal Diaphragm: [...] subsequent visit to complete the anatomic screening. Manager Utility: Soo Harding RDMS Physician: Uriel Russ II, MD, FACOG Electronically signed by: Uriel Russ II, MD, FACOG at: 19:02 Procedure Note Uriel Russ MD - 07/09/2024 PAT NAME: CAROLE GIRARD MED REC#: [id number] DA: [id number] PAT GEND: F PAT TYPE: O EXAM TRAVIS: [id number] REF PHYS URIEL RUSS Manager Utility Comments Still need heart views and PCI N/L, Kidneys, Legs suboptimal Indication ======== anatomy survey Comparison Studies There are no relevant prior studies to which this study is beingcompared Method ======= [place]on E6, Transabdominal ultrasound examination. View: Suboptimal view:limited by early gestational age ========= Love . Number of fetuses: 1 Dating ====== Method of dating:based on stated DUSTY GA by prior [id number] w + 5 d DUSTY by prior [...] 67% Hadlock HC / AC1.13 20% Hadlock IGT346 g 18w 6d 56% Hadlock EFW (lb)0 lb EFW (oz)9 oz EFW by:Hadlock (XUC-OX-DG-FL) Extended Vp6.4 mm CM3.3 mm 11% Nicolaides Extremities / Bony Struc FL / BPD0.80 >99% Hadlock FL / HC0.20 98% Hadlock FL / AC0.23 89% Hadlock Other Structures ONM647 bpm Anatomy Cranium:Appears normal Lateral ventricles:Appears normal Choroid plexus:Appears normal Midline falx:Appears normal Cavum septi pellucidi:Appears normal Cerebellum:Appears normal Cisterna magna:Appears normal Lips:suboptimal Profile:Appears normal Nose:suboptimal 4-chamber view:not visualized RVOT view:not visualized LVOT view:not visualized Heart / Thorax 3-vessel view:not visualized 2-obimty-uhnmcoo view:not visualized Diaphragm:Appears normal Diaphragm:Intact Cord insertion:Appears [...] Structures Uterus / Cervix Uterus:Visualized Cervix:Visualized Cervical bmxomn16.6 mm Ovaries / Tubes / Adnexa Rt [...] a subsequent visit tocomplete the anatomic screening. Manager Utility: Soo Harding RDMS Physician: Uriel Russ II, MD, FACOG Electronically signed by: Uriel Russ II, MD, FACOG at: 9:02 us Uriel Russ MD [facility] US ORDERABLES Final Result * Urine Culture [...] / Unknown 07/05/2024 07/05/2024 Comment:Urine Release to [facility] i Narrative [facility] - 07/07/2024 3:35 AM EDT Performed at: [address] [place] [id number] Appeals Rn: Michael Martinez PhD, Phone: [phone] us Kelly Delgado APRN MICROBIOLOGY - GENERAL ORDER FRANCO Final Result [facility] [address] [place] [address], [facility] [address] [place] [address], * Tryptase (06/25/2024 4:34 PM EDT) Tryptase 6.1 2.2 - 13.2 ug/L [facility] Blood 06/25/2024 4:34 PM EDT 06/25/2024 Narrative [facility] (AMBULATORY) - 06/28/2024 9:10 AM EDT Performed at: 01 - [address] [id number] Appeals Rn: Fang Yu MD, Phone: [phone] Uriel Russ MD LAB BLOOD ORDERABLES Final Resu lt [facility] [address] [place] [address], [facility] [address] [place] [address], * Vitamin D,25-Hydroxy (06/25/2024 4:34 PM EDT) 25 Hydroxy, Vitamin D 33.7 30.0 - 100.0 ng/mL [facility] Comment: Vitamin D deficiency has been defined by the [place] of Medicine and an Endocrine Society practice guideline as a level of serum 25-OH vitamin D less than 20 ng/mL (1,2). The Endocrine Society went on to further define vitamin D insufficiency as a level between 21 and 29 ng/mL (2). 1. IOM ([place] of Medicine). 2010. Dietary reference intakes for calcium and D. [place]: The National Academies Press. 2. Halle MF, [place] MEHTA, Wade MITCHELL, et al. Evaluation, treatment, and prevention of vitamin D deficiency: an Endocrine Society clinical practice guideline. JCEM. 2010; 96(7):1911-30. Blood 06/25/2024 4:34 PM EDT 06/25/2024 Narrative [facility] ([facility]) - 06/26/2024 7:37 AM EDT Performed at: [address] [place] [id number] Appeals Rn: Michael Martinez PhD, Phone: [phone] us Uriel Russ MD LAB BLOOD ORDERABLES Final Resu lt Performing Organization Address [facility] Co de Phone Number [facility] [address] [place] [address], [facility] [address] [place] [address], * TSH (06/25/2024 4:34 PM EDT) TSH 0.593 0.450 - 4.500 uIU/mL [facility] Blood 06/25/2024 4:34 PM EDT 06/25/2024 Narrative [facility] (AMBULATORY) - 06/26/2024 7:37 AM EDT Performed at: [address] [id number] Appeals Rn: Michael Martinez PhD, Phone: [phone] us Uriel Russ MD LAB BLOOD ORDERABLES Final Resu lt Performing Organization Address [facility] de Phone Number [facility] [address] [place] [address], [facility] [address] [place] [address], * T4, Free (06/25/2024 4:34 PM EDT) Free T4 1.09 0.82 - 1.77 ng/dL [facility] Blood 06/25/2024 4:34 PM EDT 06/25/2024 Narrative [facility] (AMBULATORY) - 06/26/2024 7:37 AM EDT Performed at: 01 - [facility] [address] [place], [place] [id number] Appeals Rn: Michael Martinez PhD, Phone: [phone] us Uriel Russ MD LAB BLOOD ORDERABLES Final Resu lt [facility] [address] [place] [address], [place] [phone] [facility] [address] [place] [address], * (ABNORMAL) Hemoglobin A1c (06/25/2024 4:34 PM EDT) Hemoglobin A1C 4.7(L) 4.8 - 5.6 % [facility] Comment: Prediabetes: 5.7 - 6.4 Diabetes: >6.4 Glycemic control for adults with diabetes: <7.0 Blood 06/25/2024 4:34 PM EDT 06/25/2024 Narrative [facility] (AMBULATORY) - 06/26/2024 4:35 AM EDT Performed at: - [facility] [address] [place], [place] [id number] Appeals Rn: Michael Martinez PhD, Phone: [phone] us Uriel Russ MD LAB BLOOD ORDERABLES Final Resu lt Performing Organization Address City/[facility]/ZIP Co de Phone Number [facility] [address] [place] [address], [place] [phone] [facility] [address] [place] [address], [place] [phone] * (ABNORMAL) Lipid Panel (06/25/2024 4:34 PM EDT) Total Cholesterol 203(H) 100 - 199 mg/dL [facility] Triglycerides 125 0 - 149 mg/dL [facility] HDL Cholesterol 52 >39 mg/dL [facility] VLDL Cholesterol Rom 22 5 - 40 mg/dL [facility] LDL Chol Calc (NIH) 129(H) 0 - 99 mg/dL [facility] Blood 06/25/2024 4:34 PM EDT 06/25/2024 Narrative [facility] (AMBULATORY) - 06/26/2024 6:36 AM EDT Performed at: 01 - [facility] [address], [place], [place] [id number] Appeals Rn: Michael Martinez PhD, Phone: [phone] us Uriel Russ MD LAB BLOOD ORDERABLES Final Resu lt [facility] (AMBULATORY) [address] [place] [address], [facility] [address] [address], * US Ob Limited 1 + Fetuses (06/25/2024 3:10 PM EDT) Anatomical Region Laterality Modality Body Ultrasound 06/25/2024 3:54 PM EDT Narrative 06/26/2024 1:34 PM EDT PAT NAME: CAROLE GIRARD MED REC#: [id number] DA: [id number] PAT GEND: F PAT TYPE: O EXAM TRAVIS: [id number] REF PHYS URIEL RUSS Indication ======== Heart [...] clinically indicated for the condition being monitored. Manager Utility: RT Annetta Bruno, [facility] Physician: Uriel Russ II, MD, FACOG Electronically signed by: Uriel Russ II, MD, FACOG at: 13:34 Procedure Note Uriel Russ MD - 06/26/2024 PAT NAME: CAROLE GIRARD MED REC#: [id number] DA: 1990 PAT GEND: F PAT TYPE: O EXAM TRAVIS: [id number] REF PHYS URIEL RUSS Indication ======== Heart Tones Comparison Studies The findings of this study are compared to the prior ultrasound studydated 05/27/2024 Method ======= Transabdominal ultrasound examination. View: Suboptimal view: limited byfetal position ========= Love . Number of fetuses: 1 Dating ====== Method of dating:based on stated DUSTY GA by prior [id number] w + 2 d DUSTY by prior [...] cm. Maternal Structures Uterus / Cervix Cervical kwnamx21.1 mm Impression heart tones 150. 17 weeks 2 days. EDC 12/01/2024. Single fetus.Cervical length 33 mm. Recommendation Follow-up scan as clinically indicated for the condition beingmonitored. Manager Utility: RT Annetta Bruno, [facility] Physician: Uriel Russ II, MD, FACOG Electronically signed by: Uriel Russ II, MD, FACOG at: :34 Uriel Russ MD [facility] US ORDERABLES Final Result * Hepatitis C Antibody (04/12/2024) Hep C Virus Ab negative Blood Historical Provider LAB BLOOD ORDERABLES Lena l Result from Last 3 Months or Most Recently Relevant to Health Maintenance Insurance [employer] [facility] Care Teams Drug Regulatory Affairs Specialist Relationship Specialty Start Date End Date Norma Friedman APRN [address] [place] [address] [place] [address] PCP - General Family Medicine 05/14/24
--- OUTSIDE RECORDS SUMMARY | 2024-09-19 16:04 | XMS_ITS | Encounter Summary ---
[facility] Address [address] [place] [id number] Care Team Providers Care Product Specialist Name Role Phone IvyKade goldbergjoseseven JOLENE Primary Care Provider + [phone] Encounter Details Date Type Department Care Team (Late st Contact Info) Description 07/25/2024 Patient Outreach [facility] [address] [place] [address] Christy Zabala, RN Social History Tobacco Use [...] hard at all 05/28/2024 [facility] [place] of Occupat ional Health - Occupational [...] GED or equivalent No 05/28/2024 Preferred Language Danish 05/28/2024 PHQ-2 Answer Date Recorded Patient Health [...] Visit [facility] GASTROENTEROLOGY [address] [address] Robbin Escalante MD [address] [place] [address] documented as of this encounter Visit Diagnoses Not on filedocumented in this encounter Additional Health Concerns Assessment Noted Time PHQ-2 Depression Total Score: 2 05/28/19 25 4:39 PM EDT documented as of this encounter Care Teams Product Specialist Relationship Specialty Start Date End Date Norma Friedman APRN [address] [place] [address] [place] [address] PCP - General Family Medicine 05/14/24 documented as of this encounter
--- OUTSIDE RECORDS SUMMARY | 2024-09-19 16:04 | XMS_ITS | Referral Summary ---
Author Organization [employer] ([place], [place], [place], [place]) Address [address] [place] [address] Care Team Providers Care Fire Management Officer Name Role Phone Unavailable Primary Care [...]
--- OUTSIDE RECORDS SUMMARY | 2024-09-19 16:04 | XMS_ITS | Encounter Summary ---
[facility] [address] [place] [address] Care Team Providers Care Credit Consultant Name Role Phone Noram Friedman APRN Primary Care Provider + [phone] Encounter Details Date Type Department Care Team (Late st Contact Info) Description 08/19/[address] [facility] OBGYN [address] [place] [address] Jacey Mathews, INDIVIDUAL SMALL GROUP INSTRUCTOR [address] [facility] [address] [place] [address] Social History Tobacco Use Types Packs/Day Years Used Date Smoking Tobacco: Never Smokeless Tobacco: Never Alcohol Use Standard Drinks/Week Comments Never 0 (1 standard drink = 0.6 oz pur e alcohol) [facility] Utilities Answer Date Recorded In the past 12 months has [employer], [employer], oil, or water [employer] threatened to shut off services in your [...] and heating? Not hard at all 05/28/2024 [facility] of Occupat [facility] - Occupational Stress Questionnaire Answer Date [...] GED or equivalent No 05/28/2024 Preferred Language Telugu 05/28/2024 PHQ-2 Answer Date Recorded Patient Health [...] Visit [facility] GASTR[facility]OLOGY [address] [address] Robbin Escalante MD [address] [address] documented as of this encounter Visit Diagnoses Not on filedocumented in this encounter Additional Health Concerns Assessment Noted Time PHQ-2 Depression Total Score: 2 05/28/19 25 4:39 PM EDT documented as of this encounter Care Teams Credit Consultant Relationship Specialty Start Date End Date Norma Friedman APRN [address] [place] [address] [place] [address] PCP - General Family Medicine 05/14/24 documented as of this encounter
--- OUTSIDE RECORDS SUMMARY | 2024-09-19 16:04 | XMS_ITS | Clinical Summary ---
Author Organization [employer] ([place], [place], [place], [place]) Address [address] [place] [address] Care Team Providers Care Angiographer Name Role Phone Unavailable Primary Care Provider [...]
--- OUTSIDE RECORDS SUMMARY | 2024-09-19 16:04 | XMS_ITS | Encounter Summary ---
[facility] Address [address] [place] [address] Care Team Providers Care Hotel Supplies Salesperson Name Role Phone Elder Norma FERNÁNDEZ Primary Care Provider + [phone] Encounter Details Date Type Department Care Team (Latest Contact Info) Description 08/19/2024 Travel Social History Tobacco Use Types Packs/Day Years Used Date Smoking Tobacco: Never Smokeless Tobacco: Never Alcohol Use Standard Drinks/Week Comments Never 0 (1 standard drink = 0.6 oz pur e alcohol) [facility] Utilities Answer Date Recorded In the past 12 months has [employer] electric, gas, oil, or water company threatened [...] heating? Not hard at all 05/28/2024 [facility] [place] of Occupat ional Health - Occupational Stress [...] No 025 2:34 PM EDT Nneka Cross, BRTI 2. Non-Specific Active Suici mike Thoughts (Past 1 Month) No 08/19/2024 2:34 PM EDT Lucy Cross RN * Calculated C-SSRS Risk Score (Lifetime/Recent) Answer Date of Assessment Author No Risk Indicated 08/19/2024 2:34 PM EDT Nneka Cross RN * [place] Suicide Severity Rating Scale (Screener/Recent Self-Report) Question Answer Date of Assessment Author 6. Suicidal Behavior (Lifetime) No 2:34 PM EDT Nneka Cross RN documented as of this encounter Plan of Treatment Upcoming Encounters Date Type Department Care Team (Late st Contact Info) Description 01/20/2025 3:30 PM EST Office Visit [facility] GASTROENTEROLOGY [address] [address] Robbin Escalante MD [address] [address] documented as of this encounter Visit Diagnoses Not on filedocumented in this encounter Additional Health Concerns Assessment Noted Time PHQ-2 Depression Total Score: 2 05/28/19 25 4:39 PM EDT documented as of this encounter Care Teams Hotel Supplies Salesperson Relationship Specialty Start Date End Date Norma Friedman APRN [address] [place] [address] [place] [address] PCP - General Family Medicine 05/14/24 documented as of this encounter
--- OUTSIDE RECORDS SUMMARY | 2024-09-19 16:04 | XMS_ITS | Clinical Summary ---
Author Organization [facility] Address [address] [place] [address] Care Team Providers Care Bottom Finisher Name Role Phone Unavailable Primary Care Provider Unavailabl e Source Comments [facility] is fully rolled out with thefollowing exceptions:General Clinical Research [facility] Social History Tobacco Use Types Packs/Day [...]
--- OUTSIDE RECORDS SUMMARY | 2024-09-19 16:04 | XMS_ITS | Encounter Summary ---
[facility] Address [address] [place] [id number] Care Team Providers Care Covered Button Maker Name Role Phone Ivyashlyn Norma FERNÁNDEZ Primary Care Provider + [phone] Encounter Details Date Type Department Care Team (Late st Contact Info) Description 08/28/2024 Telephone [facility] OBGYN [address] [address] Staci Jain MD [address] [place] [id number] Social History Tobacco Use Types Packs/Day Years Used Date Smoking Tobacco: Never Smokeless Tobacco: Never Alcohol Use Standard Drinks/Week Comments Never 0 (1 standard drink = 0.6 oz pur e alcohol) [facility] Utilities Answer Date Recorded In the past 12 months has [employer], [employer], oil, or water [employer] threatened to shut off services in your [...] GED or equivalent No 05/28/2024 Preferred Language Luxembourgish 05/28/2024 PHQ-2 Answer Date Recorded Patient Health [...] sit with a family member admitted to [facility] today and does not know if she can make it back for labs (BMP). She does have an appt in [facility] at 10 am tomorrow. Advisedthat it would [...] states she was supposed to come into [place] office today to have labs drawn however [facility]is [facility] is wondering if she could just have labs drawn there? documented in this encounter Plan of Treatment Upcoming Encounters Date Type Department Care Team (Late st Contact Info) Description 01/20/2025 3:30 PM EST Office Visit [facility] GASTROENTEROLOGY [address] [facility] [address] [place] [address] Robbin Escalante MD [address] [facility] [address] [place] [address] documented as of this encounter Visit Diagnoses Not on filedocumented in this encounter Additional Health Concerns Assessment Noted Time PHQ-2 Depression Total Score: 2 05/28/19 25 4:39 PM EDT documented as of this encounter Care Teams Covered Button Maker Relationship Specialty Start Date End Date Norma Friedman APRN [address] [place] [address] [place] [address] PCP - General Family Medicine 05/14/24 documented as of this encounter
--- OUTSIDE RECORDS SUMMARY | 2024-09-19 16:04 | XMS_ITS | Encounter Summary ---
Author Organization [employer] ([place], [place], [place], [place]) Address [address] [place] [address] Care Team Providers Care Dean Of Boys Name Role Phone Unavailable Primary Care Provider Unavailabl e Encounter Details Date Type Department Care Team (Late st Contact Info) Description 07/17/2019 Transcribed Document [facility] Family Medicine [address] [place] [address] ProviderEleno MD [address] [place], [place] [address] Social History Tobacco Use Types Packs/Day Years [...] On: 07/17/2019 19:17 EDT by KARLENE MCKINLEY paper folder Process Patient Disposition : AMA/Elope/LWBS KARLENE MCKINLEY [...]
--- OUTSIDE RECORDS SUMMARY | 2024-09-19 16:04 | XMS_ITS ---
Author Organization [facility] Address [address] [place] [address] Care Team Providers Care Smooth Stucco Resurfacer Name Role Phone Unavailable Primary Care Provider Unavailabl e Transplant Episode Kidney Potential Donor [facility] ([place], [place]) - [facility] Referred on 05/03/2022 Marked as Deferred on 05/04/2022 Reason: Other Kidney CoordinatorNadine Augustin R.N. Phone: N/A Fax: N/A Email: N/A Care Team Name Role Phone Fax Email Nadine Augustin R.N. Kidney Coordinator N/A N/A N/A Events Pre-Donation Referred: 05/03/2022
--- OUTSIDE RECORDS SUMMARY | 2024-09-19 16:04 | XMS_ITS ---
Author Organization [facility] Address [address] [place] [address] Care Team Providers Care Numerical Control Router Operator Name Role Phone Norma Friedman APRN Primary Care Provider [phone] Motherhood Connection Status:Engaged (Active) Start date:05/23/2024 Enrollment date:05/23/2024 Case Team Name Relationship Phone Bindu Castellon RN Nurse Navigator Christy Zabala RN(Responsible Staff) Nurse Navig ator Continued Care and Services Coordination
--- OUTSIDE RECORDS SUMMARY | 2024-09-19 16:05 | XMS_ITS | Encounter Summary ---
Author Organization [facility] Address [address] [place] [address] Care Team Providers Care Hotel Housekeeper Name Role Phone Unavailable Primary Care Provider Unavailabl e Reason for Referral * Consultation (Routine) - Authorized Specialty Diagnoses / Procedures Referred By Contac t Referred To Contact Nephrology Diagnoses Hypokalemia Liborio Weller MD [address] [facility] [address] [place] [address] Phone: tel: fax: [facility] Nephrology, Bone & Mineral Metabolism [address] [facility] [address] [facility], [address] [place] [address] Phone: tel: fax: Referral ID Status Reason Start Date Expiration Date Visits Requested Visits Authorized [id number] Authorized Specialty Services Required 09/14/2024 03/16/2026 1 1 Scheduling Instructions Severe hypokalemia in the setting of Encounter Details Date Type Department Care Team (Late st Contact Info) Description 09/14/2024 Telephone [facility] Obstetrics & Gynecology [address] [place] [address] Susi Wren MD [address] [place] [address] Social History Tobacco Use Types Packs/Day [...] had an outpatient workup with Nephrology at [facility] that was negative, she was not [...] Office Building Obstetrics and Gynecology [address], [address] [place] [address] Liborio Weller MD [address] [place] [address] 09/25/2024 2:20 PM EDT Office Visit [facility] Nephrology, Bone & Mineral Metabolism [address], [address] [place] [address] Scheduled Referrals Name Type Priority Associated Diagnoses Order Schedule Ambulatory referral to Nephrology Clinic Outpatient Referral Routine Hypokalemia 1 Occurrences starting 09/14/2024 until 03/18/2026 documented as of this encounter Visit Diagnoses Diagnosis Hypokalemia- Primary Hypopotassemia documented in this encounter
--- OUTSIDE RECORDS SUMMARY | 2024-09-19 16:05 | XMS_ITS | Encounter Summary ---
[facility] Address [address] [place] [phone] Care Team Providers Care Mend Worker Name Role Phone Ivyashlyn Valentinoseven JOLENE Primary Care Provider + [phone] Encounter Details Date Type Department Care Team (Late st Contact Info) Description 06/26/2024 Results Follow-Up [facility] OBGYN [address] [address] Koby Roberts MD [address] [place] [address] Social History Tobacco Use Types Packs/Day Years Used Date Smoking Tobacco: Never Smokeless Tobacco: Never Alcohol Use Standard Drinks/Week Comments Never 0 (1 standard drink = 0.6 oz pur e alcohol) [facility] Utilities Answer Date Recorded In the past 12 months has [employer], gas, oil, or water [employer] threatened [...] and heating? Not hard at all 05/28/2024 [facility] [place] of Occupat ional Health - Occupational Stress [...] Visit [facility] GASTROENTEROLOGY [address] [facility] [address] Robbin Escalante MD [address] [address] documented as of this encounter Visit Diagnoses Not on filedocumented in this encounter Additional Health Concerns Assessment Noted Time PHQ-2 Depression Total Score: 2 05/28/19 25 4:39 PM EDT documented as of this encounter Care Teams Mend Worker Relationship Specialty Start Date End Date Norma Friedman APRN [address] [place] [address] [place] [address] PCP - General Family Medicine 05/14/24 documented as of this encounter
--- OUTSIDE RECORDS SUMMARY | 2024-09-19 16:05 | XMS_ITS | Encounter Summary ---
[facility] [address] [place] [phone] Care Team Providers Care Rewinder Operator Name Role Phone IvyKade goldbergjoseseven JOLENE Primary Care Provider + [phone] Encounter Details Date Type Department Care Team (Late st Contact Info) Description 09/03/2024 Results Follow-Up [facility] OBGYN [address] [place] [address] Staci Jain MD [address] [facility] [address] [place] [address] Social History Tobacco Use Types Packs/Day Years Used Date Smoking Tobacco: Never Smokeless Tobacco: Never Alcohol Use Standard Drinks/Week Comments Never 0 (1 standard drink = 0.6 oz pur e alcohol) [facility] Utilities Answer Date Recorded In the past 12 months has [employer], gas, oil, or water [employer] threatened to shut off services in your [...] and heating? Not hard at all 05/28/2024 [facility] of Occupat ional Health - Occupational [...] GED or equivalent No 05/28/2024 Preferred Language Sinhala 05/28/2024 PHQ-2 Answer Date Recorded Patient Health [...] Office Visit [facility] GASTROENTEROLOGY [address] [address] Robbin Escalante MD [address] [address] documented as of this encounter Visit Diagnoses Not on filedocumented in this encounter Additional Health Concerns Assessment Noted Time PHQ-2 Depression Total Score: 2 05/28/19 4:39 PM EDT documented as of this encounter Care Teams Rewinder Operator Relationship Specialty Start Date End Date Norma Friedman APRN [address] [place] [address] [place] [address] PCP - General Family Medicine 05/14/24 documented as of this encounter
--- OUTSIDE RECORDS SUMMARY | 2024-09-19 16:05 | XMS_ITS | Encounter Summary ---
Author Organization [facility] Address [address] [place] [phone] Care Team Providers Care Machine Ceramic Coater Name Role Phone Unavailable Primary Care Provider Unavailabl e Encounter Details Date Type Department Care Team ([facility] st Contact Info) Description 09/17/2024 Telephone Medical Office Building Obstetrics and Gynecology [address] [facility], [address] [place] [address] Josefina Shay, RN AMB-GS [facility] [address] [place] [address] Social History Tobacco Use Types Packs/Day Years [...] recently had a full Nephrology work-up at [facility] that was negative and was not interested [...] Office Building Obstetrics and Gynecology [address] [facility], [address] [place] [address] Liborio Weller MD [address] [facility] [address] [place] [address] 09/25/2024 2:20 PM EDT Office Visit [facility] [employer] [place] Nephrology, Bone & Mineral Metabolism [address] [facility], [address] [place] [address] documented as of this encounter Visit Diagnoses Not on filedocumented in this encounter
--- OUTSIDE RECORDS SUMMARY | 2024-09-19 16:05 | XMS_ITS | Encounter Summary ---
Author Organization [facility] Address [address] [place] [phone] Care Team Providers Care Closing Machine Operator Name Role Phone Unavailable Primary Care Provider Unavailabl e Reason for Referral * Consultation (Routine) - Authorized Specialty Diagnoses / Procedures Referred By Contac t Referred To Contact Nephrology Diagnoses History of proteinuria syndrome care, subsequent , second trimester Staci Jain MD [address] [address] Phone: tel: fax: [facility] Nephrology, Bone & Mineral Metabolism [address] [facility], [address] [place] [address] Phone: tel: fax: Referral ID Status Reason Start Date Expiration Date Visits Requested Visits Authorized [id number] Authorized Specialty Services Required 07/22/2024 01/21/2026 1 1 Encounter Details Date Type Department Care Team (Late st Contact Info) Description 07/22/2024 [facility] [address] [place] [address] [place] [address] [place] [address] History of proteinuria syndrome (Primary Dx); care, [...] Upcoming Encounters Date Type Department Care Team ([facility] st Contact Info) Description 09/23/2024 10:00 AM EDT Office Visit Medical Office Building Obstetrics and Gynecology [address] [facility], [address] [place] [address] Liborio Weller MD [address] [facility] [address] [place] [address] 09/25/2024 2:20 PM EDT Office Visit [facility] Nephrology, Bone & Mineral Metabolism [address] [facility], [address] [place] [address] Scheduled Referrals Name Type Priority Associated Diagnoses Orde r Schedule Ambulatory referral to Nephrology Outpatient Referral Routine History of proteinuria syndrome care, subsequent , second trimester Expected: 07/22/2024 (Approximate), Expires: 01/23/2026 documented as of this encounter Visit Diagnoses Diagnosis History of proteinuria syndrome- Primary care, subsequent , second trimester documented in this encounter
--- OUTSIDE RECORDS SUMMARY | 2024-09-19 16:05 | XMS_ITS | Encounter Summary ---
[facility] Address [address] [place] [id number] Care Team Providers Care Post Exchange Manager Name Role Phone Ivyashlyn Norma FERNÁNDEZ Primary Care Provider + [phone] Encounter Details Date Type Department Care Team (Late st Contact Info) Description 09/02/2024 Telephone [facility] OBGYN [address] [address] Staci Jain MD [address] [place] [id number] Social History Tobacco Use Types Packs/Day Years Used Date Smoking Tobacco: Never Smokeless Tobacco: Never Alcohol Use Standard Drinks/Week Comments Never 0 (1 standard drink = 0.6 oz pur e alcohol) [facility] Utilities Answer Date Recorded In the past 12 months has [facility], [employer], oil, or water [employer] threatened to shut off services in your [...] and heating? Not hard at all 05/28/2024 [facility] of Occupat ional Health - Occupational [...] GED or equivalent No 05/28/2024 Preferred Language Korean 05/28/2024 PHQ-2 Answer Date Recorded Patient [...] PM EDT She just got d/c'd from [facility] 2 hours ago and they gave her a total 10 MLE of K+ and 3 units of Mag and 2 liters of LR. She has decided to transfer care to [facility] as it iscloser to her like 15 min away. She wants you (Dr. Jain) to know this has nothing to you but rather the nurses and transfer iron operator doctor did not relay the labs to you in a faster fashion. She said you can call her if you want and she is not angry. Dr. Jain was notified. * Telephone Encounter - Frederick Gruber RN - 09/02/2024 3:10 PM EDT [employer] message sent to the pt regarding outpt infusion apt tomorrow at [facility]. documented in this encounter Plan of Treatment Upcoming Encounters Date Type Department Care Team (Late st Contact Info) Description 01/20/2025 3:30 PM EST Office Visit [facility] GASTROENTEROLOGY [address] [place] [address] Robbin Escalante MD [address] [facility] [address] [place] [address] documented as of this encounter Visit Diagnoses Not on filedocumented in this encounter Additional Health Concerns Assessment Noted Time PHQ-2 Depression Total Score: 2 05/28/19 25 4:39 PM EDT documented as of this encounter Care Teams Post Exchange Manager Relationship Specialty Start Date End Date Norma Friedman APRN [address] [place] [address] [place] [address] PCP - General Family Medicine 05/14/24 documented as of this encounter
--- OUTSIDE RECORDS SUMMARY | 2024-09-19 16:05 | XMS_ITS | Encounter Summary ---
[facility] Address [address] [place] [address] Care Team Providers Care Land Acquisition Analyst Name Role Phone Elder Norma FERNÁNDEZ Primary Care Provider + [phone] Encounter Details Date Type Department Care Team (Latest Contact Info) Description 07/22/2024 Travel Social History Tobacco Use Types Packs/Day Years Used Date Smoking Tobacco: Never Smokeless Tobacco: Never Alcohol Use Standard Drinks/Week Comments Never 0 (1 standard drink = 0.6 oz pur e alcohol) [facility] Utilities Answer Date Recorded In the past 12 months has [employer] electric, gas, oil, or water company threatened [...] and heating? Not hard at all 05/28/2024 [facility] [place] of Occupat ional Health - Occupational Stress [...] Visit [facility] [address] [facility] [address] [place] [id number] Robbin Escalante MD [address] [facility] [address] [place] [address] documented as of this encounter Visit Diagnoses Not on filedocumented in this encounter Additional Health Concerns Assessment Noted Time PHQ-2 Depression Total Score: 2 05/28/19 25 4:39 PM EDT documented as of this encounter Care Teams Land Acquisition Analyst Relationship Specialty Start Date End Date Norma Friedamn APRN [address] [place] G3 [place] APP[place]H [id number] PCP - General Family Medicine 05/14/24 documented as of this encounter
--- OUTSIDE RECORDS SUMMARY | 2024-09-19 16:05 | XMS_ITS | Encounter Summary ---
Author Organization Healthcare Address [address] [place] [address] Care Team Providers Care Soaker Helper Name Role Phone Unavailable Primary Care Provider Unavailabl e Encounter Details Date Type Department Care Team (Late Contact Info) Description 07/22/2024 Community Orders Community Practice [address] [place] [address] Sandy Cardenas MD [address] [facility] [address] [place] [address] Social History Tobacco Use Types Packs/Day Years [...] Office Building Obstetrics and Gynecology [address], [address] [place] [address] Liborio Weller MD [address] [place] [address] 09/25/2024 2:20 PM EDT Office Visit [facility] [address], [address] [place] [address] documented as of this encounter Visit Diagnoses Not on filedocumented in this encounter
--- OUTSIDE RECORDS SUMMARY | 2024-09-19 16:05 | XMS_ITS | Clinical Summary ---
Author Organization Healthcare Address [address] [place] [id number] Care Team Providers Care Residency Director Name Role Phone Unavailable Primary Care Provider Unavailabl e Encounters Date Type Department Care Team Description 09/17/2024 Telephone [facility] [address] [facility], [address] [place] [address] Sherley Gold CNA 09/17/2024 Telephone Medical Office Building Obstetrics and Gynecology [address] [facility], [address] [place] [address] Josefina Shay RN 09/14/2024 Telephone [facility] Obstetrics & Gynecology [address] [place] [address] Susi Wren MD 07/22/2024 [facility] [address] [place] [address] Staci Jain MD History of proteinuria syndrome (Primary Dx); care, subsequent , second trimester 07/22/2024 [facility] [address] [place] [address] Sandy Cardenas MD from Last 3 Months [...] Office Building Obstetrics and Gynecology [address] [facility], [address] [place] [address] Liborio Weller MD [address] [facility] [address] [place] [address] 09/25/2024 2:20 PM EDT Office Visit [facility] Nephrology, Bone [facility] Min[facility] Metabolism [address] [facility], [address] [place] [address] Health Maintenance Due Date Last Done Comments [facility]-Depression Screening 1991 [facility]-/Child/Adol SDOH Screenings 1991 [facility]-Varicella Vaccines (1 of 2 - 13+ 2-dose series) 2004 [facility]- SDOH Screenings 2009 [facility]-Adult SDOH Screenings 2009 [facility]-Hepatitis B Vaccines (1 of 3 - 19+ 3-dose series) 2010 [facility]-Pap Smear 2012 [facility]-Cervical Cancer Screening 2021 [facility]-HPV/Cotest 2021 [id number] Vaccine (2 - season) 2023 05/04/2022 [facility]-Influenza [...] 01/22/2019 12:12 PM EST Pradip M Damico INTERVENTION NURSE, CNM LAB BLOOD ORDERABLES Fin al Result SUNQUEST * Hepatitis C Antibody (01/22/2019 9:57 AM EST) Hepatitis C Antibody NEGATIVE Reference Range: Negative SUNQUEST 01/22/2019 9:57 AM EST 01/22/2019 12:12 PM EST Pradip Damico APRN, CNM LAB BLOOD ORDERABLES Fin al Result Performing Organization Address City/[facility] Co de Phone Number SUNQUEST from Last 3 Months or Most Recently Relevant to Health Maintenance Insurance [employer]
[2024-09-19 16:46] VITALS: BMI 26.6
[2024-09-19 17:00] LABS: Magnesium 1.3 mg/dl (1.6-2.3)
[2024-09-19 17:08] VITALS: BMI 26.6
[2024-09-19] MEDS: MAGNESIUM SULFATE IN WATER 2 GM/50 ML PIGGYBACK IV ×3 (17:52→20:04)
--- NOTE | 2024-09-19 22:17 | ECG_ITS ---
APPROVED REPORT Exam: Resting ECG HR:103 bpm ECG Measurements Heart Rate 103 AXES OR 136 P 63 QRSd 78 QRS 72 QT 319 T 68 QTc 379 Conclusion SINUS TACHYCARDIA ABNORMAL RHYTHM ECG UNCONFIRMED REPORT Electronically signed by : OUSMANE DE JESUS, 09/20/2024 00:39:11
[2024-09-19] MEDS: ONDANSETRON 4MG/2ML VIAL 4 MG IV (22:20)
--- NOTE | 2024-09-19 22:29 | US_ITS ---
PROCEDURE INFORMATION: Exam: US Retroperitoneal, Kidney(s) Exam date and time: 09/19/2024 11:41 PM Age: 34 years old Clinical indication: Abnormal findings; Abnormal lab test; Other: Low potassium--; ; Additional info: Loss of potassium-- preg-- eval for adrenal TECHNIQUE: Imaging protocol: Real-time ultrasound of the retroperitoneum with image documentation. Examination was focused on the kidneys. COMPARISON: CT ABDOMEN PELVIS W CON 02/20/2024 9:09 PM FINDINGS: Right kidney: Right kidney measures 11.9 x 6.9 x 7.5 cm. Ijxswqeh-bm-revbgw right hydroureteronephrosis with partially visualize right ureter measuring 12 mm. Left kidney: No stones. No hydronephrosis. Left kidney measures 10.8 x 5.4 x 5.1 cm. Adrenal glands: Adrenal glands were unable to be visualized. IMPRESSION: 1. Ndhgfprk-[id number]-vimrld right-sided hydroureteronephrosis of uncertain etiology. Advise clinical assessment and follow-up. 2. Negative ultrasound of the left kidneys. 3. Adrenals nonvisualized.
--- NOTE | 2024-09-19 22:42 | P.CONS_ITS ---
<Statement entered by Liborio Hewitt MD - 09/24/24 11:44> Personally evaluated patient and agree with the plan of care as outlined by the DIRECTOR EMPLOYMENT. History of Present Illness *Admission Date: 09/19/24 *Reason for visit:: Low potassium and magnesium *History of present illness: This is a 34-year-old female who has a past medical history of 9 para 5, bilateral ovarian cysts, traumatic iritis, gastroenteritis, endometriosis, GERD, dysmenorrhea, and menorrhagia who is 28 weeks of gestation and presents with a chief complaint of low potassium and low magnesium. Due to patient's subtherapeutic electrolytes, she was admitted to the obstructed unit for serial infusions of electrolytes. Unfortunately, patient started to experience some tachycardia in the 110 to 120s. As a result, hospital medicine was consulted for persistent tachycardia During my evaluation of the patient, patient reports that she has been experiencing low potassium and magnesium since her second trimester. She reports during her multiple pregnancies, she experiences this low potassium and low magnesium. She reports she does take oral magnesium and potassium as an outpatient and despite this replenishment of her electrolytes it is persistently low. She has had some nausea but has been without any significant emesis or diarrhea. This hypokalemia and hypomagnesia him is known and patient's primary MOLD YARD CRANE OPERATOR has referred patient to nephrology due to suspicion that her electrolyte disturbance was most likely renal in nature. She was evaluated by nephrology and she reports that her lab values were normal and there was no additional workup . Patient reports near syncopal while at home but none while inpatient. She is currently denying any lightheadedness, dizziness, fever, chills, rigors, shortness of breath, dyspnea, or diarrhea. Initial pertinent values obtained include a red blood cell count of 3.84, hemoglobin 11, hematocrit 33.5, sodium of 134, potassium of 2.8, blood glucose 121, magnesium 1.3, and AST of 41. [facility] Disclaimer: The information contained in this section may have been updated after the patient was seen, as this information can be updated by other users. Medical History Vaginal bleeding in Nausea vomiting and diarrhea Normal esophagogastroduodenoscopy (EGD) Vaginal discharge UTI (urinary tract infection) UTI (urinary tract infection) Subchorionic hematoma Patient left without being seen Vaginal spotting Bilateral ovarian cysts Vulvar lesion Lower abdominal pain Traumatic iritis Corneal abrasion Subconjunctival hemorrhage Bright red blood per rectum Hematemesis Obstipation Irregular bowel habits Dyspepsia Generalized abdominal pain Early satiety Bloating Back pain Abdominal pain Low back ache Acute viral syndrome Gastroenteritis Dehydration Hypocalcemia Missed GERD (gastroesophageal reflux disease) Grand multipara History of recurrent miscarriages History of miscarriage, currently History of anemia Urinary tract infection History of gastroesophageal reflux (GERD) Endometriosis Clinically diagnosed Dysmenorrhea Menorrhagia History of miscarriage History of fainting History of heavy periods Surgical History History of tympanostomy tube placement History of section Hx of section Family History Other Family history of diabetes mellitus type II Family history of myocardial infarction Social History (Updated 09/19/24 @ 16:59 by Brigitte Bryant RN) Smoking Status: Never smoker alcohol intake: never substance use type: denies use current occupational status: unemployed Travel in the last 8 weeks?: None household members: spouse housing: house 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 Have you lived/traveled outside US in past 30 days?: No Contact w/someone who lives/traveled outside US past 30 days?: No Exposure to someone with infectious disease in past 14 days?: No Do you have a fever (greater than 100.4 F or 38 C)?: No Have you tested positive for COVID-19?: No Exposed to someone with COVID-19 in past 14 days?: No Do you have a sore throat?: No Do you have a cough?: No Do you have any weakness?: No Are you experiencing any nausea/vomitting?: No Do you have any diarrhea?: No Are you experiencing any unusual bleeding?: No Do you have any muscle aches/pain?: No Do you have any abdominal pain?: No Are you experiencing loss of taste or smell?: No Review of Systems Review of Systems Review of systems:: pertinent systems reviewed and negative unless documented below Constitutional Constitutional: Reports poor appetite Eyes Eyes: Reports system reviewed and no additional complaints, except as documented ENT Ears, Nose, Mouth, and Throat: Reports system reviewed and no additional complaints, except as documented *Cardiovascular Cardiovascular: Reports palpitations *Respiratory Respiratory: Reports system reviewed and no additional complaints, except as documented *Gastrointestinal Gastrointestinal: Reports nausea *Genitourinary Genitourinary: Reports system reviewed and no additional complaints, except as documented *Musculoskeletal Musculoskeletal: Reports system reviewed and no additional complaints, except as documented Integumentary/Breasts Skin/Breast: Reports system reviewed and no additional complaints, except as documented *Neurologic Neurologic: Reports system reviewed and no additional complaints, except as documented Psychiatric Psychiatric: Reports system reviewed and no additional complaints, except as documented Endocrine Endocrine: Reports palpitations Hematologic/Lymphatic Hematologic/Lymphatic: Reports system reviewed and no additional complaints, except as documented Allergic/Immunologic Allergic/Immunologic: Reports system reviewed and no additional complaints, except as documented Exam Data for Last 24 hours Vital signs and Labs for Last 24 Hours: Laboratory Results - last 24 hr 09/19/24 16:40: Magnesium 1.3 L I & O for Last 24 hours: Intake & Output 09/16/24 09/17/24 09/18/24 09/19/24 23:59 23:59 23:59 23:59 Weight 70.307 kg Constitutional Constitutional: mild distress and cooperative *Routine HEENT Exam Head: Present normocephalic and atraumatic Eye: Present EOMI ENT: Present mucous membranes moist *Routine Neck Exam Neck: Present supple, full ROM and trachea midline *Routine Respiratory Exam Respiratory: Present CTA bilaterally, diminished air movement, able to speak in complete sentences and symmetric chest movement *Routine Cardiovascular Exam Cardiovascular: Present RRR, Normal S1, Normal S2 and tachycardia *Routine Abdominal Exam Abdominal: Present normoactive bowel sounds and other Comments: *Routine Rectal Exam Comments: Deferred *Routine Exam Comments: Deferred *Routine Extremities Exam Extremities: Present pulses intact and normal capillary refill Routine Back/Spine/Pelvis Exam Back/Spine: Present full ROM *Routine Skin Exam Skin: Present intact, dry and warm *Routine Neurological Exam Neurological: Present alert, oriented X3 and CN II-XII intact Routine Psychiatric Exam Psychiatric: Present normal affect and normal thought process Meds Home Medications and Allergies Home Medications ?Medication ?Instructions ?Recorded ?Confirmed ?Type omeprazole 20 mg capsule,delayed 20 mg PO DAILY 09/17/24 History release vit no.95-ferrous 1 tab PO DAILY 09/02/2401/30 History fumarate 28 mg-folic acid 800 mcg tablet () thiamine HCl (vitamin B1) 100 mg 100 mg PO DAILY 09/0209/17/24 History tablet potassium chloride 20 mEq 40 meq (2 x 20 mEq) PO BID 5 days 09/05/24 09/17/24 Rx tablet,extended #20 tabs release(part/cryst) (Klor-Con M) clindamycin HCl 300 mg capsule 300 mg PO TID #30 caps 09/12/24 09/17/24 Rx (Cleocin HCl) ferrous sulfate 325 mg (65 mg 325 mg PO DAILY #30 tabs 09/12/24 09/17/24 Rx iron) tablet (Iron (ferrous sulfate)) oxycodone-acetaminophen 5 mg-325 1 tab PO Q6H PRN pain #12 tabs 09/12/24 09/17/24 Rx mg tablet pyridoxine (vitamin B6) 25 mg 25 mg PO Q8H 09/17/24 History tablet (Vitamin B-6) New Prescriptions to Start Prescriptions: Allergies Allergy/AdvReac Type Severity Reaction Status Date / Time peanut Allergy Severe Hives Verified 09/17/24 13:52 Results Labs Labs: Abnormal lab results 09/19/24 Range/Units 16:40 Magnesium 1.3 L (1.6-2.3) mg/dl All other labs normal. Assessment and Plan *Assessment and plan (1) Hypomagnesemia: Status: Acute Category: Medical Code(s): E83.42 - Hypomagnesemia (2) Nausea and vomiting: Status: Acute Qualifiers: Vomiting type: unspecified Qualified Code(s): R11.2 - Nausea with vomiting, unspecified Category: Medical Code(s): R11.2 - Nausea with vomiting, unspecified (3) Hypokalemia: Status: Acute Category: Medical Code(s): E87.6 - Hypokalemia (4) Sinus tachycardia: Status: Acute Category: Medical Code(s): R00.0 - Tachycardia, unspecified Plan Assessment: Sinus tachycardia -Most likely compensatory -Will hold off on any AV gumaro blocking medication -EKG independently evaluated by me shows a sinus tachycardia without any ST segment depression or elevation -Will obtain 2D echo -Will obtain TSH with reflex T4 -Will consider volume as opposed to AV block medications Hypokalemia Hypomagnesia -- Differential diagnosis rule out primary aldosteronism -Agree with continue to replete patient's loss of electrolytes - Patient is not having any loss of volume through the GI tract - Since volume is not loss through the GI tract, there is concern for possible renin and aldosterone dysfunction; - Will obtain ultrasound of the kidneys and adrenal glands- . Obtain cortisol level, metanephrines, 24-hour potassium, urine potassium, renin activity, urine sodium, urine creatinine ratio, urine protein ratio, urine nitrogen, aldosterone level, urine protein, and CMP in a.m. - Of note conditions like aldosteronism can be exacerbated by . Patient reports multiple pregnancies with the a forementioned symptomology occurring. Will rule this out and then if this is negative we will look for other sources of loss of electrolytes We would like to thank the MOLD YARD CRANE OPERATOR team for the consult I discussed the case with MOLD YARD CRANE OPERATOR on-call Dr. Valladares aiding I will discuss this case with consulting Dr. Hewitt and I look forward to more input
[2024-09-19] MEDS: LACTATED RINGERS 1000ML 1,000 ML 999 ML IV (22:50)
[2024-09-19] MEDS: CALCIUM CARBONATE 500MG CHEWTAB 1000 MG PO (22:51)
[2024-09-19] MEDS: DEXTROSE 5%-LACTATED RINGERS 1,000 ML 125 ML IV (22:51)
[2024-09-19] MEDS: FAMOTIDINE 20MG TABLET 20 MG PO (22:52)
[2024-09-19 23:36] LABS: Fetal Fibronectin (Rapid) Negative (Negative)
[2024-09-20] MEDS: 0.9 % SODIUM CHLORIDE 25 ML 50 ML IV (01:15)
[2024-09-20] MEDS: PROMETHAZINE HCL 25MG/ML 1ML VIAL 12.5 MG IV (01:15)
[2024-09-20 02:02] LABS: Sodium,Urine Random 119.0 mmol/L (30-90)
[2024-09-20 06:50] LABS: Albumin Level 3.2 g/dl (3.5-5.0); Chloride 103 mmol/L (98-107); Potassium 3.2 mmoL/L (3.5-5.1); Sodium 134 mmol/L (136-145)
[2024-09-20 06:52] LABS: Alanine Aminotransferase 24 U/L (12-78); Anion Gap 8.2 mEq/L (5-15); Aspartate Amino Transferase 41 U/L (14-36); Blood Urea Nitrogen 5 mg/dl (7-17); Carbon Dioxide 26 mmol/L (22.0-30.0); Creatinine Clearance Estimated 148 mL/min (50-200); Creatinine,Serum 0.60 mg/dl (0.52-1.04); Estimated Glomerular Filt Rate 115 ml/min (>60); GFR (African American) 139 ML/MIN (>60)
[2024-09-20 06:53] LABS: Albumin/Globulin Ratio 1.1 (1.1-1.8); Alkaline Phosphatase 76 U/L (38-126); Bilirubin,Total 0.5 mg/dl (0.2-1.3); Calcium 8.4 mg/dl (8.4-10.2); Globulin 3.0 g/dL (1.3-3.2); Glucose 92 mg/dl (74-100); Total Protein,Serum 6.2 g/dl (6.3-8.2)
[2024-09-20 07:22] LABS: Thyroid Stimulating Hormone 0.74 uIU/mL (0.465-4.68)
--- NOTE | 2024-09-20 09:27 | EXP.ACUTE.PN ---
Subjective *Date: 09/20/24 *Time: 11:08 Interval history: Patient lying in bed, states she is very tired. Denies nausea, vomiting, diarrhea, abdominal pain, chest pain. Medical Exam Vital signs and Labs for Last 24 Hours: Intake and Output 09/19/24 09/20/24 09/20/24 23:59 07:59 15:59 Other: Weight 70.307 kg Laboratory Results - last 24 hr 09/19/24 16:40: Magnesium 1.3 L 09/19/24 22:35: Fibronectin Negative 09/20/24 00:15: Ur Random Urea Nitrogn 85, Urine Creatinine 35, Urine Microalbumin < 6.000, Microalb/Creat Ratio , Urine Sodium 119.0 H, Urine Total Protein 20.0 H 09/20/24 06:15: Sodium 134 L, Potassium 3.2 L, Chloride 103, Carbon Dioxide 26, Anion Gap 8.2, BUN 5 L, Creatinine 0.60, Estimated Creat Clear 148, Estimated GFR 115, Est GFR ( Amer) 139, Glucose 92 D, Calcium 8.4, Total Bilirubin 0.5, AST 41 H, ALT 24, Alkaline Phosphatase 76, Total Protein 6.2 L, Albumin 3.2 L D, Globulin 3.0, Albumin/Globulin Ratio 1.1, TSH 0.74 I & O for Labs for Last 24 Hours: Intake & Output 09/17/24 09/18/24 09/19/24 09/20/24 23:59 23:59 23:59 23:59 Weight 70.307 kg Constitutional: Present no acute distress and cooperative Head: Present atraumatic ENT: Present normal exam Neck: Present normal inspection Respiratory: Present CTA bilaterally, able to speak in complete sentences and symmetric chest movement; Absent crackles Cardiac: Present Reg Rate and Rhythm GI: Present soft and normal bowel sounds; Absent distention or tenderness Rectal (female): Present deferred (female): Present deferred Extremities: Present normal inspection; Absent tenderness or edema Skin: Present intact and dry; Absent erythema Neuro: Present oriented x 3 Assessment and Plan *Assessment and plan (1) Hypokalemia: Status: Acute Category: Medical Code(s): E87.6 - Hypokalemia (2) Hypomagnesemia: Status: Acute Category: Medical Code(s): E83.42 - Hypomagnesemia (3) : Status: Acute Qualifiers: Weeks of gestation: 28 weeks Qualified Code(s): Z3A.28 - 28 weeks gestation of Category: Medical Code(s): Z34.90 - Encounter for supervision of normal , unspecified, unspecified trimester Plan Ms. Presley is a 34-year-old female, G9, P5 admitted due to hypokalemia and hypomagnesia. Her initial complaint was nausea and vomiting. She currently denies nausea or vomiting at this time. Denies abdominal pain. She is tolerating p.o. diet without problems. Lab work this morning remarkable for hypokalemia 3.2, no leukocytosis WBC 9.8, mild anemia hemoglobin 11.0, kidney function within normal limits, creatinine 0.6. Patient had echo this morning, read pending. Magnesium yesterday 1.3, today pending. She has a outpatient nephrology appointment at on 09/25. Transvaginal ultrasound shows shortened cervix of 2.3-defer to OB. #Hypokalemia #Hypomagnesemia ? Replace potassium and magnesium per protocol. Patient tolerating replacement without issues. ? Vital signs within normal limits, heart rate 84 this morning. TSH 0.74. ? Renal ultrasound does show moderate to severe right sided hydronephrosis of uncertain etiology. Patient denies flank pain, urinating appropriately. Patient should keep follow-up with nephrology on 09/25. ? Cortisol, potassium 24-hour urine, renin plasma, free T4, aldosterone ordered?send out tests. ? Continue to monitor CBC, CMP, magnesium. ? Patient receiving D5 LR 125 mL/H per primary service. # ?Patient is 29 weeks 5 days. Transvaginal ultrasound reveals relatively short cervix length measuring as low as 2.3 cm. BPP 8 out of 8. Patient states she feels baby moving. Full code Regular diet Ambulate as tolerated #Will continue to follow.
--- NOTE | 2024-09-20 09:57 | HMH.PHAINT1 ---
Pharmacy Intervention Comments: MEDICATION RECONCILIATION COMPLETE USING EXTERNAL PHARMACY FILL HISTORY, RECENT OB OFFICE VISIT NOTE.
--- NOTE | 2024-09-20 10:05 | CA_ITS ---
APPROVED REPORT EXAM: Comprehensive 2D, Doppler, and color-flow Echocardiogram Head Of Mobile: Brenda Worthy RT(R) Ht: 5 ft 4 in Wt: 155lbs BSA: 1.76 BP: 125/84 mmHg Indications: tachycardia, 30 week , hypokalemia 2D Dimensions EF AP4 50.50 % GL Strain -14.1 % M-Mode Dimensions RVDd 2.81 cm (0.9-2.6) LA Diam 2.66 cm (1.9-4.0) LVDd 2.98 cm (3.5-5.7) LVDs 2.24 cm (3.5-5.7) IVSd 0.64 cm (0.6-1.1) PWd 0.67 cm (0.6-1.1) EF (Teich) 50.60% FS 24.80% EDV (Teich) 34.40 mL ESV (Teich) 17.00 mL LV Diastology E Decel Time 217 (160-240 msec) E/A Ratio 1.73 Mitral Valve MV A Velocity 47.0 (40-130 cm/s) E/A Ratio 1.73 Left Ventricle The left ventricle is normal size. Left ventricular systolic function is normal. The left ventricular ejection fraction is within the normal range. There is normal left ventricular wall thickness. There is normal LV segmental wall motion. The left ventricular diastolic function is normal. LVEF is 55% Right Ventricle The right ventricle is normal size. The right ventricular systolic function is normal. Atria The left atrium size is normal. The right atrium size is normal. There is no color Doppler evidence of interatrial shunt. Aortic Valve The aortic valve opens well. There is no hemodynamically significant aortic valvular stenosis. No aortic regurgitation is present. Mitral Valve The mitral valve is normal in structure. No evidence of mitral valve stenosis. Mild mitral regurgitation is present. Tricuspid Valve The tricuspid valve leaflets are thin and pliable. Trace tricuspid regurgitation. There is insufficient TR jet to estimate RVSP. Pulmonic Valve The pulmonary valve is grossly normal in structure. Trace pulmonic valve regurgitation is present. Great Vessels The aortic root is normal in size. IVC is normal in size and collapses >50% with inspiration. Pericardium There is no pericardial effusion. Other Information Study Quality: Fair Conclusion Normal biventricular systolic function. Mild MR. Electronically signed by : Ilda Iverson MD 09/20/2024 12:36:28
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
[2024-09-20] MEDS: CALCIUM CARBONATE 500MG CHEWTAB 1000 MG PO ×2 (12:01→18:02)
[2024-09-20] MEDS: FAMOTIDINE 20MG TABLET 20 MG PO (12:01)
[2024-09-20 12:15] LABS: Magnesium 1.7 mg/dl (1.6-2.3)
[2024-09-20 12:47] LABS: Free T4 (Free Thyroxine) 1.44 ng/dl (0.78-2.19)
[2024-09-20] MEDS: MAGNESIUM SULFATE IN WATER 2 GM/50 ML PIGGYBACK IV ×2 (12:55→13:49)
[2024-09-20] MEDS: POTASSIUM CHLORIDE 20MEQ TAB 40 MEQ PO ×2 (12:55→16:38)
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
[2024-09-20 17:20] LABS: Potassium 3.5 mmoL/L (3.5-5.1)
[2024-09-21 04:09] LABS: Potassium, Urine 57.9 mmol/L (Not Estab.)
[2024-09-22 12:17] LABS: Cortisol,AM 11.3 ug/dL (6.2-19.4)
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
[2024-09-27 15:04] LABS: Renin Activity, Plasma 23.460 ng/mL/hr (0.167-5.380)
== END 2024-09-20 18:21 | disposition home or self-care (01) ==
LOC: OBOUT 16:06 → OB 16:06
PROVIDERS: Nurse Practitioner Family; Obstetrics & Gynecology; Admitting Provider Obstetrics & Gynecology; PCP Nurse Practitioner Family; Visit Provider Obstetrics & Gynecology
DX: O99.283 Endocrine, nutritional and metabolic diseases complicating pregnancy, third trimester (principal); O99.343 Other mental disorders complicating pregnancy, third trimester; O99.613 Diseases of the digestive system complicating pregnancy, third trimester; O21.9 Vomiting of pregnancy, unspecified; E83.42 Hypomagnesemia; E87.6 Hypokalemia; F43.11 Post-traumatic stress disorder, acute; F43.0 Acute stress reaction; R00.0 Tachycardia, unspecified; K21.9 Gastro-esophageal reflux disease without esophagitis; Z86.2 Personal history of diseases of the blood and blood-forming organs and certain disorders involving the immune mechanism; Z87.59 Personal history of other complications of pregnancy, childbirth and the puerperium; Z3A.29 29 weeks gestation of pregnancy; Z91.010 Allergy to peanuts; Z98.891 History of uterine scar from previous surgery; Z79.899 Other long term (current) drug therapy
CPT/HCPCS: 36415; 59025; 76770; 76817; 76819; 80053; 82043; 82088; 82533; 82570; 82731; 83735; 83835; 84132; 84133; 84156; 84244; 84439; 84443; 84540; 93306; 96361; 96365; 96366; 96375; 96376; G0378; J1200; J2405; J2550; J3475; J3480; J7120; J7121

== ENCOUNTER 2024-09-24 08:46 | Outpatient (CLI) | payer OTHER, SELFPAY ==
--- OUTSIDE RECORDS SUMMARY | 2024-08-19 10:15 | XMS_ITS | Encounter Summary ---
[facility] Organization [facility] Address [address] [place] [address] Care Team Providers Care Setter Induction Heating Equipment Name Role Phone Norma Friedman APRN Primary Care Provider + [phone] Reason for Visit * Reason Comments Routine Visit Encounter Details Date Type Department Care Team (Late st Contact Info) Description 08/19/2024 10:15 AM EDT Routine [facility] OBGYN [address] [place] [address] Jacey Mathews, HOBBIES AND CRAFTS SALES REPRESENTATIVE [address] [place] [address] GA: 25w1d Social History Tobacco Use Types Packs/Day Years Used Date Smoking Tobacco: Never Smokeless Tobacco: Never Alcohol Use Standard Drinks/Week Comments Never 0 (1 standard drink = 0.6 oz pur e alcohol) [facility] Utilities Answer Date Recorded In the past 12 months has [employer], gas, oil, or water [employer] threatened to shut off services in your [...] and heating? Not hard at all 05/28/2024 [facility] [place] [facility] - Occupational Stress Questionnaire Answer Date [...] this encounter Progress Notes * Jacey Mathews, HOBBIES AND CRAFTS SALES REPRESENTATIVE - 08/19/2024 10:15 AM EDT Images from [...] Description 01/20/2025 3:30 PM EST Office Visit [facility] GASTROENTEROLOGY [address] [facility] [address] [place] [address] Robbin Escalante MD [address] [facility] [address] [place] [address] documented as of this encounter Visit Diagnoses Diagnosis Vaginal bleeding in - Primary 25 weeks gestation of documented in this encounter Additional Health Concerns Assessment Noted Time PHQ-2 Depression Total Score: 2 05/28/19 25 4:39 PM EDT documented as of this encounter Care Teams Setter Induction Heating Equipment Relationship Specialty Start Date End Date Norma Friedman APRN [address] [place] [address] [place] [id number] PCP - General Family Medicine 05/14/24 documented as of this encounter
--- OUTSIDE RECORDS SUMMARY | 2024-08-19 13:59 | XMS_ITS | Encounter Summary ---
[facility] Address [address] [place] [id number] Care Team Providers Care Waste Collector Name Role Phone Ivyashlyn Norma FERNÁNDEZ Primary Care Provider + [phone] Reason for Visit * Reason Comments Vaginal Bleeding * Auth/Cert (Routine) Specialty Diagnoses / Procedures Referred By Contleyla t Referred To Contact Referral ID Status Reason Start Date Expiration Date Visits Re quested Visits Authorized [id number] 1 Encounter Details Date Type Department Care Team (Late st Contact Info) Description 08/19/2024 1:59 PM EDT - 08/20/2024 4:28 PM EDT Hospital Encounter [facility] [address] [place] [id number] Rob Wharton MD [address] [facility] [address] [place] [address] Blu Alvarado MD [address] [facility] [address] [place] [address] Dysphagia, unspecified type (Primary Dx) Discharge Disposition: Home or Self Care Social History Tobacco Use Types Packs/Day Years Used Date Smoking Tobacco: Never Smokeless Tobacco: Never Alcohol Use Standard Drinks/Week Comments Never 0 (1 standard drink = 0.6 oz pur e alcohol) [facility] Utilities Answer Date Recorded In the past 12 months has [facility], gas, oil, or water [employer] threatened to shut off services in your [...] and heating? Not hard at all 05/28/2024 [facility] of Occupat ional Health - Occupational Stress [...] 1:23 PM EDT Polly Lacey RN * [place] Suicide Severity Rating Scale (Screener/Recent Self-Report) Question [...] Labs beginning of week and f/u with pa Seng Test Results Pending at Discharge Pending Labs Order Current Status Tissue Pathology Exam In process Rob Wharton MD 08/20/24 15:36 EDT Time: Discharge <30 min documented in this encounter Discharge Instructions * Attachments The following attachments cannot be sent through Care Everywhere. * Second Trimester of (Estonian) * Upper Endoscopy Adult Care After (Estonian) documented in this encounter Medications at Time [...] EDT Daily Progress Note Patient name: Carole Girrad Date of : 1990 Referring Provider: Rob Wharton Admission Date: 08/19/2024 Date of Service: 08/20/2024 Carole Girard is a 34 y.o. at 25w2d admitted on 08/19/2024 for hypokalemia, N/V Hospital day 0 Diagnoses: History of Labs Lab Results Component Value Date HGB 10.5 (L) 08/19/2024 ABO O 08/19/2024 RH Positive 08/19/2024 ABSCRN Negative 08/19/2024 [id number] non-reactive 04/12/2024 HEPCVIRUSABY negative 04/12/2024 URINECX Final [...] IUPC: Resting Tone: Resting Tone by IUPC: [place] Units: Cervix: Exam by: Method: sterile vaginal [...] from the original note were not included. [facility] Obstetric History and Physical Referring Provider: [...] her third trimesters prior pregnancies(etiology unknown). 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 She states has never had [...] IUPC: Resting Tone: Resting Tone by IUPC: [place] Units: Laboratory Results: Lab Results (last 24 [...] AM EDTAssociated Order(s): IP CONSULT TO GASTROENTEROLOGY [facility] Gastroenterology Consult Referring Provider: Dr. Fan/Dr. Wharton [...] expresses concern regarding recent CT scan at [facility] revealing a hiatal hernia. CT scan done prior to most recent due to ovarian cyst and incidentally revealed hiatal hernia. She reports chronic gastrointestinal symptoms. Review of medical record revealed prior GI referral due to blood per rectum. She reports colonoscopy in 2020 at outside facility that revealed diverticulosis and benign colon polyp. She is currently established with provider at [facility] for gastroenterology care she reports [...] , await recommendations following EGD - consider DUMP ATTENDANT evaluation if no etiology for difficulty swallowing [...] from the original note were not included. [facility] Obstetric History and Physical Referring Provider: [...] her third trimesters prior pregnancies(etiology unknown). 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 She states has never had [...] IUPC: Resting Tone: Resting Tone by IUPC: [place] Units: Laboratory Results: Lab Results (last 24 [...] [facility] [address] [facility] [phone] Robbin Escalante MD [address] [facility] [address] [address] documented as of this encounter Procedures Procedure [...] TEST Routine 08/19/2024 4:17 PM EDT [facility] Routine 08/19/2024 3:25 PM EDT [...] EDT) Case Report Surgical Pathology Report Case: [id number] Authorizing Provider: Blu Alvarado MD Collected: 08/20/2024 01:55 PM Ordering Location: [facility] Received: 08/20/2024 02:14 PM ENDO SUITES Pathologist: Khalida Rhoades DO Specimen: Gastric, Antrum, antrum bx for path 08/22/2024 9:18 AM EDT [facility] Clinical Information Dysphagia, unspecified type 08/22/2024 9:18 AM EDT [facility] Final Diagnosis Stomach, antrum, biopsy: 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 pylori is negative (no organisms are identified) Negative for intestinal metaplasia, dysplasia, or malignancy 08/22/2024 9:18 AM EDT [facility] at 0918 EDT Gross Description 1. Gastric, Antrum. Received in formalin labeled antrum biopsy is a 0.4 x 0.2 x 0.2 cm pink-see soft tissue fragment submitted entirely in a single cassette. HDM 08/22/2024 9:18 AM EDT [facility] Microscopic Description The slides are reviewed and demonstrate histopathologic features supporting the above rendered diagnosis. 08/22/2024 9:18 AM EDT [facility] Tissue Pyloric antrum structure / Unknown 08/20/2024 1:55 PM EDT 08/20/2024 2:14 PM EDT us Blu Alvarado MD PATHOLOGY/CYTOLOGY ORDERABLES Final Result [facility]
[address] [place] [address], * Upper GI Endoscopy (08/20/2024 1:09 PM EDT) us Blu Alvarado MD INTERFACE NEEDS Final Result * (ABNORMAL) Basic Metabolic Panel (08/20/2024 5:25 AM EDT) Glucose 84 65 - 99 mg/dL 08/20/2024 6:13 AM EDT [facility] BUN 2.3(L) 6.0 - 20.0 mg/dL 08/20/2024 6:13 AM EDT [facility] Creatinine 0.51(L) 0.57 - 1.00 mg/dL 08/20/2024 6:13 AM EDT [facility] Sodium 139 136 - 145 mmol/L 08/20/2024 6:13 AM EDT [facility] Potassium 3.5 3.5 - 5.2 mmol/L 08/20/2024 6:13 AM EDT [facility] Chloride 109(H) 98 - 107 mmol/L 08/20/2024 6:13 AM EDT [facility] CO2 23.5 22.0 - 29.0 mmol/L 08/20/2024 6:13 AM EDT [facility] Calcium 7.8(L) 8.6 - 10.5 mg/dL 08/20/2024 6:13 AM EDT [facility] BUN/Creatinine Ratio 4.5(L) 7.0 - 25.0 08/20/2024 6:13 AM EDT [facility] Anion Gap 6.5 5.0 - 15.0 mmol/L 08/20/2024 6:13 AM T [facility] eGFR 126.6 >60.0 mL/min/1.7 3 08/20/2024 6:13 AM T [facility] Blood Venipuncture / Unknown 08/20/2024 5:25 AM EDT 08/20/2024 5:46 AM EDT [facility] - 08/20/2024 6:13 AM [...] Address City/[facility]/ZIP Co de Phone Number [facility]
[address] [place] [address], * (ABNORMAL) Potassium (08/19/2024 8:53 PM EDT) Potassium 2.7(L) 3.5 - 5.2 mmol/L 08/19/2024 9:20 PM EDT [facility] Blood Venipuncture / Unknown 08/19/2024 8:53 PM EDT 08/19/2024 9:04 PM EDT Kt Fan DO LAB BLOOD ORDERABLES Final Result Performing Organization Address [facility] Co de Phone Number [facility]
[address] [place] [address], * ABO RH Specimen Verification (08/19/2024 4:34 PM EDT) ABO Type O 08/19/2024 7:39 PM EDT [facility] RH type Positive 08/19/2024 7:39 PM EDT [facility] Blood Venipuncture / Unknown 08/19/2024 4:34 PM EDT 08/19/2024 4:53 PM EDT Rob Wharton MD BLOOD BANK TEST ORDER FRANCO Final Result Performing Organization Address City/[facility]/ZIP Co de Phone Number [facility]
[address] [place] [address], * [facility] (08/19/2024 3:25 PM EDT) Anatomical Region Laterality Modality Ultrasound 08/19/2024 3:09 PM EDT Narrative 08/19/2024 4:54 PM EDT PAT NAME: CAROLE GIRARD MED REC#: [id number] DA: 1990 PAT GEND: F PAT TYPE: E EXAM TRAVIS: [id number] REF PHYS ROB WHARTON Comparison Studies The [...] EFW (oz) 9 oz EFW by: Hadlock ([id number]) Extended Cav. septi pel. tr 4.7 mm Spinning Mule Operator 3.8 mm CM 7.5 mm 84% [...] Heart / Thorax 3-vessel view: Appears normal 3-xofehc-hnyihcl view: Appears normal Stomach: Appears normal Kidneys: [...] in 4wks for growth. Coding ======= Description: 24335-60 Follow Up Training And Development Director: RT Annetta Hartmann , [facility] Physician: Jo Chappell MD Electronically signed by: Jo Chappell MD at: 16:54 Procedure Note Jo Chappell MD - 08/19/2024 PAT NAME: CAROLE GIRARD MED REC#: [id number] DA: 1990 PAT GEND: F PAT TYPE: E EXAM TRAVIS: [id number] REF PHYS ROB WHARTON Comparison Studies The findings of this study are compared to the prior ultrasound studydated 07/22/24 Patient Status Inpatient Indication ======== History of c/s x1. History of . Vaginal bleeding. Maternal Assessment Mjqzzu178 cm Height (ft)5 ft Height (in)4 in Fvomgq89 kg Weight (lb)158 lb BMI27.31 kg/m Method ======= Transabdominal ultrasound examination. View: Limited by patient bodyhabitus ========= Love . Number of fetuses: 1 Dating ====== Method of dating:based on stated DUSTY GA by prior [email or web address] w + 1 d DUSTY by prior assessment:12/01/2024 Ultrasound examination on:08/19/2024 GA by U/S based upon:AC, BPD, Femur, HC GA by U/S24 w + 2 d DUSTY by U/S:12/07/2024 Previous dating:based on stated DUSTY, selected on 07/22/2024 Agreed DUSTY of previous datin12/01/2024 Assigned:based on stated DUSTY, selected on 08/19/2024 Assigned GA25 w + 1 d Assigned DUSTY:12/01/2024 [id number] d Biometry Standard BPD57.6 mm 23w 4d 5% Hadlock OFD81.6 mm 26w 4d 88% Jamal HC225.7 mm 24w 4d 13% Hadlock Cerebellum tr28.9 mm 25w 2d 62% Hill AC194.9 mm 24w 1d 15% Hadlock Femur44.9 mm 24w 6d 27% Hadlock Ydbkdcv62.3 mm 25w 3d 50% Jamal HC / AC1.16 FWB578 g 24w 2d 16% Hadlock EFW (lb)1 lb EFW (oz)9 oz EFW by:Hadlock ([id number]-FL) Extended Cav. septi pel. tr4.7 mm Vp3.8 mm CM7.5 mm 84% Nicolaides Head / Face / Neck Cephalic index0.71 <1% Nicolaides Extremities / Bony Struc FL / BPD0.78 FL / HC0.20 FL / AC0.23 Other Structures [id number] bpm General Evaluation Cardiac activity present. FHR [...] normal Heart / Thorax 3-vessel view:Appears normal 6-wplfoq-xvhecsg view:Appears normal Stomach:Appears normal Kidneys:Appears normal Bladder:Appears [...] office in 4wks for growth. Coding ======= Description:49015-98 Follow Up Training And Development Director: RT Annetta Hartmann , RDMS Physician: Jo [...] [facility]
[address] [place] [address], [place] [phone] * (ABNORMAL) Magnesium (08/19/2024 3:02 PM EDT) Magnesium 1.5(L) 1.6 - 2.6 mg/dL 08/19/2024 5:12 PM EDT [facility] Blood Line / Unknown 08/19/2024 3: 02 PM EDT 08/19/2024 3:10 PM EDT Kt Fan DO LAB BLOOD ORDERABLES Final Result [facility]
[address] [place] [address], [place] [phone] * Urinalysis, Microscopic Only - Urine, Clean Catch (08/19/2024 3:02 PM EDT) RBC, UA 0-2 None Seen, 0-2 /HPF 08/19/2024 3:33 PM EDT [facility] WBC, UA 0-2 None Seen, 0-2 /HPF 08/19/2024 3:33 PM EDT [facility] Bacteria, UA None Seen None Seen /HPF 08/19/2024 3:33 PM EDT [facility] Squamous Epithelial Cells, UA 0-2 None Seen, 0-2 /HPF 08/19/2024 3:33 PM EDT [facility] Hyaline Casts, UA None Seen None Seen /LPF 08/19/2024 3:33 PM EDT [facility] Methodology Automated Microscopy 08/19/2024 3:33 PM EDT [facility] Urine Urine specimen obtained by clean catch procedure / Unknown Collection / Unknown 08/19/2024 3:02 PM EDT 08/19/2024 3:13 PM EDT us Kt Fan DO URINE ORDERABLES Final Resu lt [facility]
[address] [place] [address], * (ABNORMAL) CBC Auto Differential (08/19/2024 3:02 PM EDT) WBC 9.19 3.40 - 10.80 10*3/mm3 08/19/2024 3:23 PM EDT [facility] RBC 3.58(L) 3.77 - 5.28 10*6/mm3 08/19/2024 3:23 PM EDT [facility] Hemoglobin 10.5(L) 12.0 - 15.9 g/dL 08/19/2024 3:23 PM EDT [facility] Hematocrit 31.4(L) 34.0 - 46.6 % 08/19/2024 3:23 PM EDT [facility] MCV 87.7 79.0 - 97.0 fL 08/19/2024 3:23 PM EDT [facility] MCH 29.3 26.6 - 33.0 pg 08/19/2024 3:23 PM EDT [facility] MCHC 33.4 31.5 - 35.7 g/dL 08/19/2024 3:23 PM EDT [facility] RDW 13.4 12.3 - 15.4 % 08/19/2024 3:23 PM EDT [facility] RDW-SD 42.4 37.0 - 54.0 fl 08/19/2024 3:23 PM EDT [facility] MPV 12.0 6.0 - 12.0 fL 08/19/2024 3:23 PM EDT [facility] Platelets 241 140 - 450 10*3/mm3 08/19/2024 3:23 PM EDT [facility] Neutrophil % 66.8 42.7 - 76.0 % 08/19/2024 3:23 PM EDT [facility] Lymphocyte % 24.4 19.6 - 45.3 % 08/19/2024 3:[facility] Monocyte % 7.6 5.0 - 12.0 % 08/19/2024 3:23 PM [facility] Eosinophil % 0.7 0.3 - 6.2 % 08/19/2024 3:23 PM [facility] Basophil % 0.2 0.0 - 1.5 % 08/19/2024 3:23 PM [facility] Immature Grans % 0.3 0.0 - 0.5 % 08/19/2024 3:23 PM [facility] Neutrophils, Absolute 6.14 1.70 - 7.00 10*3/mm3 08/19/2024 3:23 PM [facility] Lymphocytes, Absolute 2.24 0.70 - 3.10 10*3/mm3 08/19/2024 3:23 PM EDT [facility] Monocytes, Absolute 0.70 0.10 - 0.90 10*3/mm3 08/19/2024 3:23 PM EDT [facility] Eosinophils, Absolute 0.06 0.00 - 0.40 10*3/mm3 08/19/2024 3:23 PM [facility] Basophils, Absolute 0.02 0.00 - 0.20 10*3/mm3 08/19/2024 3:23 PM EDT [facility] Immature Grans, Absolute 0.03 0.00 - 0.05 10*3/mm3 08/19/2024 3:23 PM EDT [facility] nRBC 0.0 0.0 - 0.2 /100 WBC 08/19/2024 3:23 PM EDT [facility] Blood Line / Unknown 08/19/2024 3: 02 PM EDT 08/19/2024 3:10 PM EDT Kt Fan DO LAB BLOOD ORDERABLES Final Result [facility]
[address] [place] [address], * (ABNORMAL) Urinalysis With Microscopic If Indicated (No Culture) - Urine, Clean Catch (08/19/2024 3:02 PM EDT) Color, UA Yellow Yellow, Straw 08/19/2024 3:33 PM EDT [facility] Appearance, UA Clear Clear 08/19/2024 3:33 PM EDT [facility] pH, UA >=9.0(H) 5.0 - 8.0 08/19/2024 3:33 PM EDT [facility] Specific Thorpe, UA 1.018 1.005 - 1.030 08/19/2024 3:33 PM EDT [facility] Glucose, UA Negative Negative 08/19/2024 3:33 PM EDT [facility] Ketones, UA 15 mg/dL (1+)(A) Negative 08/19/2024 3:33 PM EDT [facility] Bilirubin, UA Negative Negative 08/19/2024 3:33 PM EDT [facility] Blood, UA Negative Negative 08/19/2024 3:33 PM EDT [facility] Protein, UA 30 mg/dL (1+)(A) Negative 08/19/2024 3:33 PM EDT [facility] Leuk Esterase, UA Negative Negative 08/19/2024 3:33 PM EDT [facility] Nitrite, UA Negative Negative 08/19/2024 3:33 PM EDT [facility] Urobilinogen, UA 1.0 E.U./dL 0.2 - 1.0 E.U./dL 08/19/2024 3:33 PM EDT [facility] Urine Urine specimen obtained by clean catch procedure / Unknown Collection / Unknown 08/19/2024 3:02 PM EDT 08/19/2024 3:13 PM EDT us Kt Fan DO URINE ORDERABLES Final Resu lt Performing Organization Address City/[facility]/ZIP Co de Phone Number [facility]
[address] [place] [address], [place] [phone] * Amylase (08/19/2024 3:02 PM EDT) Amylase 73 28 - 100 U/L 08/19/2024 3:36 PM EDT [facility] Blood Line / Unknown 08/19/2024 3: 02 PM EDT 08/19/2024 3:10 PM EDT us Kt Fan DO LAB BLOOD ORDERABLES Final Result Performing Organization Address [facility] Co de Phone Number [facility]
[address] [place] [address], [place] [phone] * Lipase (08/19/2024 3:02 PM EDT) Lipase 13 13 - 60 U/L 08/19/2024 3:36 PM EDT [facility] Blood Line / Unknown 08/19/2024 3: 02 PM EDT 08/19/2024 3:10 PM EDT us Kt Fan DO LAB BLOOD ORDERABLES Final Result Performing Organization Address City/[facility]/ZIP Co de Phone Number [facility]
[address] [place] [address], * (ABNORMAL) Comprehensive Metabolic Panel (08/19/2024 3:02 PM EDT) [facility] Glucose 75 65 - 99 mg/dL 08/19/2024 3:38 PM EDT [facility] BUN 3.6(L) 6.0 - 20.0 mg/dL 08/19/2024 3:38 PM EDT [facility] Creatinine 0.51(L) 0.57 - 1.00 mg/dL 08/19/2024 3:38 PM EDT [facility] Sodium 137 136 - 145 mmol/L 08/19/2024 3:38 PM EDT [facility] Potassium 2.6(LL) 3.5 - 5.2 mmol/L 08/19/2024 3:38 PM EDT [facility] Comment:Specimen hemolyzed. Result may be falsely elevated. Chloride 99 98 - 107 mmol/L 08/19/2024 3:38 PM EDT [facility] CO2 24.2 22.0 - 29.0 mmol/L 08/19/2024 3:38 PM EDT [facility] Calcium 8.8 8.6 - 10.5 mg/dL 08/19/2024 3:38 PM EDT [facility] Total Protein 6.6 6.0 - 8.5 g/dL 08/19/2024 3:38 PM EDT [facility] Albumin 3.4(L) 3.5 - 5.2 g/dL 08/19/2024 3:38 PM EDT [facility] ALT (SGPT) 10 1 - 33 U/L 08/19/2024 3:38 PM EDT [facility] AST (SGOT) 22 1 - 32 U/L 08/19/2024 3:38 PM EDT [facility] Alkaline Phosphatase 64 39 - 117 U/L 08/19/2024 3:38 PM EDT [facility] Total Bilirubin 0.5 0.0 - 1.2 mg/dL 08/19/2024 3:38 PM EDT [facility] Globulin 3.2 gm/dL 08/19/2024 3:38 PM EDT [facility] Comment:Calculated Result A/G Ratio 1.1 g/dL 08/19/2024 3:38 PM EDT [facility] BUN/Creatinine Ratio 7.1 7.0 - 25.0 08/19/2024 3:38 PM EDT [facility] Anion Gap 13.8 5.0 - 15.0 mmol/L 08/19/2024 3:38 PM EDT [facility] eGFR 126.6 >60.0 mL/min/1.7 3 08/19/2024 3:38 PM EDT [facility] Blood Line / Unknown 08/19/2024 3: 02 PM EDT 08/19/2024 3:10 PM EDT Narrative [facility] - 08/19/2024 3:38 PM EDT [...] Fan DO LAB BLOOD ORDERABLES Final Result [facility]
[address] [place] [address], * Type & Screen (08/19/2024 3:02 PM EDT) ABO Type O 08/19/2024 3:51 PM EDT [facility] RH type Positive 08/19/2024 3:51 PM EDT [facility] Antibody Screen Negative 08/19/2024 3:51 PM EDT [facility] T&S Expiration Date 08/22/2024 11:59:59 PM 08/19/2024 3:51 PM EDT [facility] Blood Line / Unknown 08/19/2024 3: 02 PM EDT 08/19/2024 3:15 PM EDT Kt Fan DO BLOOD BANK TEST ORDERABLES Edited Result - Final [facility]
[address] [place] [address], documented in this encounter Visit Diagnoses Diagnosis [...] documented as of this encounter Care Teams Waste Collector Relationship Specialty Start Date End Date Norma Friedman APRN [address] [place] G3 RAFAELA APPIAH [id number] PCP - General Family Medicine 05/14/24 documented as of this encounter
--- OUTSIDE RECORDS SUMMARY | 2024-08-20 13:33 | XMS_ITS | Encounter Summary ---
[facility] Address [address] [place] [address] Care Team Providers Care Maintenance Worker House Trailer Name Role Phone Norma Friedman APRN Primary Care Provider + [phone] Reason for Visit * Reason Comments Vaginal Bleeding * Auth/Cert (Routine) Specialty Diagnoses / Procedures Referred By Tarik t Referred To Contact Referral ID Status Reason Start Date Expiration Date Visits Re quested Visits Authorized [id number] 1 1 Encounter Details Date Type Department Care Team (Late st Contact Info) Description 08/20/2024 1:33 PM EDT - 08/20/2024 2:05 PM EDT Surgery [facility] ENDO SUITES [address] [place] [address] Blu Alvarado MD [address] [facility] [address] [place] [address] ESOPHAGOGASTRODUODENOSCOPY [17789 (CPT )] Social History Tobacco Use Types Packs/Day Years Used Date Smoking Tobacco: Never Smokeless Tobacco: Never Alcohol Use Standard Drinks/Week Comments Never 0 (1 standard drink = 0.6 oz pur e alcohol) [facility] Utilities Answer Date Recorded In [...] and heating? Not hard at all 05/28/2024 [facility] - Occupational Stress Questionnaire Answer Date [...] GED or equivalent No 05/28/2024 Preferred Language Cameroonian 05/28/2024 PHQ-2 Answer Date Recorded Patient Health [...] 1:23 PM EDT Polly Lacey RN * Maury Suicide Severity Rating Scale (Screener/Recent Self-Report) Question [...] Labs [facility] Results Pending at Discharge Pending Labs Order Current Status Tissue Pathology Exam In process Rob Wharton MD 08/20/24 15:36 EDT Time: Discharge <30 min documented in this encounter Discharge Instructions * Attachments The following attachments cannot be sent through Care Everywhere. * Second Trimester of (Cameroonian) * Upper Endoscopy Adult Care After (Cameroonian) documented in this encounter Medications at Time [...] 08/19/2024 RH Positive 08/19/2024 ABSCRN Negative 08/19/2024 [id number] non-reactive 04/12/2024 HEPCVIRUSABY negative 04/12/2024 URINECX Final [...] IUPC: Resting Tone: Resting Tone by IUPC: Letona Units: Cervix: Exam by: Method: sterile vaginal [...] her third trimesters prior pregnancies(etiology unknown). Patient's clean up person is in [facility]. She states has never had a [...] IUPC: Resting Tone: Resting Tone by IUPC: Letona Units: Laboratory Results: Lab Results (last 24 [...] AM EDTAssociated Order(s): IP CONSULT TO GASTROENTEROLOGY [facility] Gastroenterology Consult Referring Provider: [...] , await recommendations following EGD - consider METER READER CHIEF evaluation if no etiology for difficulty swallowing [...] her third trimesters prior pregnancies(etiology unknown). Patient's clean up person is in [facility]. She states has never had a [...] IUPC: Resting Tone: Resting Tone by IUPC: Letona Units: Laboratory Results: Lab Results (last 24 [...] Visit [facility] GASTROENTEROLOGY [address] [address] Robbin Esclaante MD [address] [address] documented as of this encounter Procedures Procedure [...] NONSTRESS TEST Routine 08/19/2024 4:17 PM EDT [facility] Routine 08/19/2024 3:25 [...] EDT) Case Report Surgical Pathology Report Case: [id number] Authorizing Provider: Blu Alvarado MD Collected: 08/20/2024 01:55 PM Ordering Location: [facility] Received: 08/20/2024 02:14 PM ENDO SUITES Pathologist: Khalida Rhoades DO Specimen: Gastric, Antrum, antrum bx for path 08/22/2024 9:18 AM EDT [facility] LABORATORY Clinical Information Dysphagia, unspecified type 08/22/2024 9:18 AM EDT [facility] LABORATORY Final Diagnosis Stomach, antrum, biopsy: 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 pylori is negative (no organisms are identified) Negative for intestinal metaplasia, dysplasia, or malignancy 08/22/2024 9:18 AM EDT [facility] LABORATORY at 0918 EDT Gross Description 1. Gastric, Antrum. Received in formalin labeled antrum biopsy is a 0.4 x 0.2 x 0.2 cm pink-see soft tissue fragment submitted entirely in a single cassette. HDM 08/22/2024 9:18 AM EDT [facility] LABORATORY Microscopic Description The slides are reviewed and demonstrate histopathologic features supporting the above rendered diagnosis. 08/22/2024 9:18 AM EDT [facility] LABORATORY Tissue Pyloric antrum structure / Unknown 08/20/2024 1:55 PM EDT 08/20/2024 2:14 PM EDT us Blu Alvarado MD PATHOLOGY/CYTOLOGY ORDERABLES Final Result [facility] LABORATORY
[address] [place] [address], * Upper GI Endoscopy (08/20/2024 1:09 PM EDT) us Blu Alvarado MD INTERFACE NEEDS Final Result * (ABNORMAL) Basic Metabolic Panel (08/20/2024 5:25 AM EDT) Glucose 84 65 - 99 mg/dL 08/20/2024 6:13 AM EDT [facility]ORY BUN 2.3(L) 6.0 - 20.0 mg/dL 08/20/2024 6:13 AM T [facility] LABORATORY Creatinine 0.51(L) 0.57 - 1.00 mg/dL 08/20/2024 6:13 AM [facility] Sodium 139 136 - 145 mmol/L 08/20/2024 6:13 AM EDT [facility]ORY Potassium 3.5 3.5 - 5.2 mmol/L 08/20/2024 6:13 AM EDT [facility]ORY Chloride 109(H) 98 - 107 mmol/L 08/20/2024 6:13 AM [facility] CO2 23.5 22.0 - 29.0 mmol/L 08/20/2024 6:13 AM [facility] Calcium 7.8(L) 8.6 - 10.5 mg/dL 08/20/2024 6:13 AM [facility] BUN/Creatinine Ratio 4.5(L) 7.0 - 25.0 08/20/2024 6:13 AM [facility] Anion Gap 6.5 5.0 - 15.0 mmol/L 08/20/2024 6:13 AM [facility] eGFR 126.6 >60.0 mL/min/1.7 3 08/20/2024 6:13 AM [facility] Blood Venipuncture / Unknown 08/20/2024 5:25 AM EDT 08/20/2024 5:46 AM T [facility] LABORATORY - 08/20/2024 6:13 AM [...] ORDERABLES Final Resu lt Performing Organization Address City/[facility]/ZIP Co de Phone Number [facility] LABORATORY
[address] [place] [address], * (ABNORMAL) Potassium (08/19/2024 8:53 PM EDT) Potassium 2.7(L) 3.5 - 5.2 mmol/L 08/19/2024 9:20 PM EDT [facility] LABOR[facility]ORY Blood Venipuncture / Unknown 08/19/2024 8:53 PM EDT 08/19/2024 9:04 PM EDT Kt Fan DO LAB BLOOD ORDERABLES Final Result Performing Organization Address [facility] Co de Phone Number [facility] LABORATORY
[address] [place] [address], * ABO RH Specimen Verification (08/19/2024 4:34 PM EDT) ABO Type O 08/19/2024 7:39 PM EDT [facility] BB LABORATORY RH type Positive 08/19/2024 7:39 PM EDT [facility] LABORATORY Blood Venipuncture / Unknown 08/19/2024 4:34 PM EDT 08/19/2024 4:53 PM EDT Rob Wharton MD BLOOD BANK TEST ORDER FRANCO Final Result Performing Organization Address City/[facility]/ZIP Co de Phone Number [facility] BB LABORATORY
[address] [place] [address], * [facility] (08/19/2024 3:25 PM EDT) Anatomical Region Laterality Modality Ultrasound 08/19/2024 3:09 PM EDT Narrative 08/19/2024 4:54 PM EDT PAT NAME: CAROLE GIRARD MED REC#: [id number] DA: 1990 PAT GEND: F PAT TYPE: E EXAM TRAVIS: [id number] REF PHYS ROB WHARTON Comparison Studies The [...] EFW (oz) 9 oz EFW by: Hadlock ([id number]) Extended Cav. septi pel. tr 4.7 mm Salvationist 3.8 mm CM 7.5 mm 84% Nicolaides [...] Heart / Thorax 3-vessel view: Appears normal 5-okpvvx-yrwqduh view: Appears normal Stomach: Appears normal Kidneys: [...] in 4wks for growth. Coding ======= Description: [id number] Follow Up Assistant Refinery Operator: Alison Verduzco RT R , MS Physician: Jo Chappell MD Electronically signed by: Jo Chappell MD at: 16:54 Procedure Note Jo Chappell MD - 08/19/2024 PAT NAME: CAROLE GIRARD MED REC#: [id number] DA: [id number] PAT GEND: F PAT TYPE: E EXAM TRAVIS: [id number] REF PHYS ROB WHARTON Comparison Studies The findings of this study are compared to the prior ultrasound studydated 07/22/24 Patient Status Inpatient Indication ======== History of c/s x1. History of . Vaginal bleeding. Maternal Assessment Ppnjla270 cm Height (ft)5 ft Height (in)4 in [place]07 kg Weight (lb)158 lb BMI27.31 kg/m Method ======= Transabdominal ultrasound examination. View: Limited by patient bodyhabitus ========= Love . Number of fetuses: 1 Dating ====== Method of dating:based on stated DUSTY GA by prior [id number] w + 1 d DUSTY by prior [...] Hadlock Femur44.9 mm 24w 6d 27% Hadlock Emauljn28.3 mm 25w 3d 50% Jamal HC / AC1.16 [id number] g 24w 2d 16% Hadlock EFW (lb)1 lb EFW (oz)9 oz EFW by:Hadlock ([id number]) Extended Cav. septi pel. tr4.7 mm Vp3.8 mm CM7.5 mm 84% Nicolaides Head / Face / Neck Cephalic index0.71 <1% Nicolaides Extremities / Bony Struc FL / BPD0.78 FL / HC0.20 FL / AC0.23 Other Structures [id number] bpm General Evaluation Cardiac activity present. FHR [...] normal Heart / Thorax 3-vessel view:Appears normal 4-fylome-gbiunyb view:Appears normal Stomach:Appears normal Kidneys:Appears normal Bladder:Appears normal Gender:female Wants to know gender:yes Maternal Structures Uterus / Cervix Cervix:Visualized Approach:Transabdominal Cervical smzuiu64.9 mm Doppler Arterial Umbilical A PI1.01 32% [...] office in 4wks for growth. Coding ======= Description:[id number] Follow Up Assistant Refinery Operator: RT Annetta Hartmann , [facility] Physician: Jo Chappell MD Electronically signed by: oJ Chappell MD at: 16:54 us Kt Fan DO [facility] US ORDERABLES Final Res ult * Protein / Creatinine Ratio, Urine - Urine, Clean Catch (08/19/2024 3:02 PM EDT) Protein/Creati nine Ratio, Urine 126.1 0.0 - 200.0 mg/G Crea 08/20/2024 12:47 AM EDT [facility] Creatinine, Urine 148.3 mg/dL 08/20/2024 12:47 AM EDT [facility] Total Protein, Urine 18.7 mg/dL 08/20/2024 12:47 AM EDT [facility] Urine Urine specimen obtained by clean catch procedure / Unknown Collection / Unknown 08/19/2024 3:02 PM EDT 08/19/2024 4:26 PM EDT Kt Fan DO URINE ORDERABLES Final Resu lt [facility]
[address] [place] [address], [place] [phone] * (ABNORMAL) Magnesium (08/19/2024 3:02 PM EDT) Magnesium 1.5(L) 1.6 - 2.6 mg/dL 08/19/2024 5:12 PM EDT [facility] Blood Line / Unknown 08/19/2024 3: 02 PM EDT 08/19/2024 3:10 PM EDT Kt Fan DO LAB BLOOD ORDERABLES Final Result Performing Organization Address City/[facility]/ZIP Co de Phone Number [facility] LABORATORY
[address] [place] [address], [place] [phone] * Urinalysis, Microscopic Only - Urine, Clean Catch (08/19/2024 3:02 PM EDT) RBC, UA 0-2 None Seen, 0-2 /HPF 08/19/2024 3:33 PM EDT [facility] WBC, UA 0-2 None Seen, 0-2 /HPF 08/19/2024 3:33 PM EDT [facility] Bacteria, UA None Seen None Seen /HPF 08/19/2024 3:33 PM EDT [facility] Squamous Epithelial Cells, UA 0-2 None Seen, 0-2 /HPF 08/19/2024 3:33 PM EDT [facility] Hyaline Casts, UA None Seen None Seen /LPF 08/19/2024 3:33 PM EDT [facility] Methodology Automated Microscopy 08/19/2024 3:33 PM EDT [facility] Urine Urine specimen obtained by clean catch procedure / Unknown Collection / Unknown 08/19/2024 3:02 PM EDT 08/19/2024 3:13 PM EDT Kt Fan DO URINE ORDERABLES Final Resu lt [facility]OR[facility]ORY
[address] [place] [address], * (ABNORMAL) CBC Auto Differential (08/19/2024 3:02 PM EDT) WBC 9.19 3.40 - 10.80 10*3/mm3 08/19/2024 3:23 PM EDT [facility] RBC 3.58(L) 3.77 - 5.28 10*6/mm3 08/19/2024 3:23 PM EDT [facility] Hemoglobin 10.5(L) 12.0 - 15.9 g/dL 08/19/2024 3:23 PM EDT [facility] Hematocrit 31.4(L) 34.0 - 46.6 % 08/19/2024 3:23 PM EDT [facility] MCV 87.7 79.0 - 97.0 fL 08/19/2024 3:23 PM EDT [facility] MCH 29.3 26.6 - 33.0 pg 08/19/2024 3:23 PM EDT [facility] MCHC 33.4 31.5 - 35.7 g/dL 08/19/2024 3:23 PM EDT [facility] RDW 13.4 12.3 - 15.4 % 08/19/2024 3:23 PM EDT [facility] RDW-SD 42.4 37.0 - 54.0 fl 08/19/2024 3:23 PM EDT [facility] MPV 12.0 6.0 - 12.0 fL 08/19/2024 3:23 PM EDT [facility] Platelets 241 140 - 450 10*3/mm3 08/19/2024 3:23 PM EDT [facility] Neutrophil % 66.8 42.7 - 76.0 % 08/19/2024 3:23 PM EDT [facility] Lymphocyte % 24.4 19.6 - 45.3 % 08/19/2024 3:23 PM EDT [facility] Monocyte % 7.6 5.0 - 12.0 % 08/19/2024 3:23 PM EDT [facility] Eosinophil % 0.7 0.3 - 6.2 % 08/19/2024 3:23 PM EDT [facility] Basophil % 0.2 0.0 - 1.5 % 08/19/2024 3:23 PM EDT [facility] Immature Grans % 0.3 0.0 - 0.5 % 08/19/2024 3:23 PM EDT [facility] Neutrophils, Absolute 6.14 1.70 - 7.00 10*3/mm3 08/19/2024 3:23 PM EDT [facility] Lymphocytes, Absolute 2.24 0.70 - 3.10 10*3/mm3 08/19/2024 3:23 PM EDT [facility] Monocytes, Absolute 0.70 0.10 - 0.90 10*3/mm3 08/19/2024 3:23 PM EDT [facility] Eosinophils, Absolute 0.06 0.00 - 0.40 10*3/mm3 08/19/2024 3:23 PM EDT [facility] Basophils, Absolute 0.02 0.00 - 0.20 10*3/mm3 08/19/2024 3:23 PM EDT [facility] Immature Grans, Absolute 0.03 0.00 - 0.05 10*3/mm3 08/19/2024 3:23 PM EDT [facility] nRBC 0.0 0.0 - 0.2 /100 WBC 08/19/2024 3:23 PM EDT [facility] Blood Line / Unknown 08/19/2024 3: 02 PM EDT 08/19/2024 3:10 PM EDT Kt Fan DO LAB BLOOD ORDERABLES Final Result [facility]ORY
[address] [place] [address], * (ABNORMAL) Urinalysis With Microscopic If Indicated (No Culture) - Urine, Clean Catch (08/19/2024 3:02 PM EDT) Color, UA Yellow Yellow, Straw 08/19/2024 3:33 PM EDT [facility] Appearance, UA Clear Clear 08/19/2024 3:33 PM EDT [facility] pH, UA >=9.0(H) 5.0 - 8.0 08/19/2024 3:33 PM EDT [facility] Specific [place], UA 1.018 1.005 - 1.030 08/19/2024 3:33 PM EDT [facility] Glucose, UA Negative Negative 08/19/2024 3:33 PM EDT [facility] Ketones, UA 15 mg/dL (1+)(A) Negative 08/19/2024 3:33 PM EDT [facility] Bilirubin, UA Negative Negative 08/19/2024 3:33 PM EDT [facility] Blood, UA Negative Negative 08/19/2024 3:33 PM EDT [facility] Protein, UA 30 mg/dL (1+)(A) Negative 08/19/2024 3:33 PM EDT [facility] Leuk Esterase, UA Negative Negative 08/19/2024 3:33 PM EDT [facility] Nitrite, UA Negative Negative 08/19/2024 3:33 PM EDT [facility] Urobilinogen, UA 1.0 E.U./dL 0.2 - 1.0 E.U./dL 08/19/2024 3:33 PM EDT [facility] Urine Urine specimen obtained by clean catch procedure / Unknown Collection / Unknown 08/19/2024 3:02 PM EDT 08/19/2024 3:13 PM EDT us Kt Fan DO URINE ORDERABLES Final Resu lt [facility]OR[facility]ORY
[address] [place] [address], [place] [phone] * Amylase (08/19/2024 3:02 PM EDT) Amylase 73 28 - 100 U/L 08/19/2024 3:36 PM EDT [facility] Blood Line / Unknown 08/19/2024 3: 02 PM EDT 08/19/2024 3:10 PM EDT us Kt Fan DO LAB BLOOD ORDERABLES Final Result Performing Organization Address [facility] Co de Phone Number [facility]
[address] [place] [address], [place] [phone] * Lipase (08/19/2024 3:02 PM EDT) Lipase 13 13 - 60 U/L 08/19/2024 3:36 PM EDT [facility] Blood Line / Unknown 08/19/2024 3: 02 PM EDT 08/19/2024 3:10 PM EDT us Kt Fan DO LAB BLOOD ORDERABLES Final Result Performing Organization Address City/[facility]/ZIP Co de Phone Number [facility]
[address] [place] [address], [place] [phone] * (ABNORMAL) Comprehensive Metabolic Panel (08/19/2024 3:02 PM EDT) Glucose 75 65 - 99 mg/dL 08/19/2024 3:38 PM EDT [facility] BUN 3.6(L) 6.0 - 20.0 mg/dL 08/19/2024 3:38 PM T [facility] Creatinine 0.51(L) 0.57 - 1.00 mg/dL 08/19/2024 3:38 PM EDT [facility] Sodium 137 136 - 145 mmol/L 08/19/2024 3:38 PM T [facility] Potassium 2.6(LL) 3.5 - 5.2 mmol/L 08/19/2024 3:38 PM [facility] Comment:Specimen hemolyzed. Result may be falsely elevated. Chloride 99 98 - 107 mmol/L 08/19/2024 3:38 PM [facility] CO2 24.2 22.0 - 29.0 mmol/L 08/19/2024 3:38 PM T [facility] Calcium 8.8 8.6 - 10.5 mg/dL 08/19/2024 3:38 PM T [facility] Total Protein 6.6 6.0 - 8.5 g/dL 08/19/2024 3:38 PM [facility] Albumin 3.4(L) 3.5 - 5.2 g/dL 08/19/2024 3:38 PM [facility] ALT (SGPT) 10 1 - 33 U/L 08/19/2024 3:38 PM T [facility] AST (SGOT) 22 1 - 32 U/L 08/19/2024 3:38 PM T [facility] Alkaline Phosphatase 64 39 - 117 U/L 08/19/2024 3:38 PM [facility] Total Bilirubin 0.5 0.0 - 1.2 mg/dL 08/19/2024 3:38 PM T [facility] Globulin 3.2 gm/dL 08/19/2024 3:38 PM T [facility] Comment:Calculated Result A/G Ratio 1.1 g/dL 08/19/2024 3:38 PM EDT [facility] BUN/Creatinine Ratio 7.1 7.0 - 25.0 08/19/2024 3:38 PM EDT [facility] Anion Gap 13.8 5.0 - 15.0 mmol/L 08/19/2024 3:38 PM EDT [facility] eGFR 126.6 >60.0 mL/min/1.7 3 08/19/2024 3:38 PM EDT [facility] Blood Line / Unknown 08/19/2024 3: 02 PM EDT 08/19/2024 3:10 PM EDT [facility] - 08/19/2024 3:38 PM [...] BLOOD ORDERABLES Final Result [facility]
[address] [place] [address], * Type & Screen (08/19/2024 3:02 PM EDT) ABO Type O 08/19/2024 3:51 PM EDT [facility] RH type Positive 08/19/2024 3:51 PM EDT [facility] Antibody Screen Negative 08/19/2024 3:51 PM EDT [facility] T&S Expiration Date 08/22/2024 11:59:59 PM 08/19/2024 3:51 PM EDT [facility] Blood Line / Unknown 08/19/2024 3: 02 PM EDT 08/19/2024 3:15 PM EDT Kt Fan DO BLOOD BANK TEST ORDERABLES Edited Result - Final [facility] LABORATORY
[address] [place] [address], documented in this encounter Visit Diagnoses Diagnosis [...] [phone] (Not Given - Provider: Yun iNcole RN - Reason: Other (Comment Required) - [...] documented as of this encounter Care Teams Maintenance Worker House Trailer Relationship Specialty Start Date End Date Norma Friedman APRN [address] [place] [place] [address] PCP - General Family Medicine 05/14/24 documented as of this encounter
--- OUTSIDE RECORDS SUMMARY | 2024-08-20 13:44 | XMS_ITS | Encounter Summary ---
[facility] Address [address] [place] [id number] Care Team Providers Care Curator Herbarium Name Role Phone IvyKade goldbergdev FERNÁNDEZ Primary Care Provider + [phone] Reason for Visit * Auth/Cert (Routine) Specialty Diagnoses / Procedures Referred By Contac t Referred To Contact Referral ID Status Reason Start Date Expiration Date Visits Re quested Visits Authorized 1 1 Encounter Details Date Type Department Care Team (Late st Contact Info) Description 08/20/2024 1:44 PM EDT Anesthesia Event [facility] ENDO SUITES [address] [place] [address] Akash Anguiano MD [address] [place] [address] Liborio Peralta CRNA [address] [place] [address] Anesthesia Record Procedure Summary Procedure Name Responsible Anesthesiologist Anesthesia Start Time Anesthesia Stop Time ESOPHAGOGASTRODUODENOSCOPY Akash Anguiano MD 08/20/24 1344 08/20/24 1418 Events Date Time Event Comment 08/20/2024 1331 1344 AN Equip Check 1344 An Start The patient was reevaluated immediately before moderate or deep sedation use and before anesthesia induction. 1344 An Start Data 1347 An Induction 1349 An Intubation 1401 An Extubation 1413 an stop data 1418 Handoff to RN The following has been completed: 1. Identification of Patient, jonas family member(s) or patient surrogate 2. Identification of the responsible Practitioner (primary service) 3. Discussion of the pertinent/attainable medical history 4. Discussion of the surgical/procedure course (procedure, reason for surgery, procedure performed) 5. Intraoperative anesthetic management and issue/concerns to include things such as airway, hemodynamics, narcotic, sedation level and paralytic management and intravenous fluids/blood products and urine output during the procedure 6. Expectations/Plans for the early post-procedure period to include things such as anticipated course (anticipatory guidance), complications, need for laboratory or ECG and medication administration 7. Opportunity for questions and acknowledgment of understanding of report from the receiving PACU/ICU team 1418 An Stop Meds Name Total propofol 10 MG/ML 200 mg lidocaine PF 1% 1 % 50 mg Succinylcholine Chloride 200 MG/10ML 140 mg ondansetron 2 mg/mL 4 mg dexAMETHasone 4 MG/ML 4 mg Phenylephrine HCl-NaCl 1000-0.9 MCG/10ML -% 200 mcg glycopyrrolate (ROBINUL) injection 0.2 m cg neostigmine (PROSTIGMINE) 10 mg/10 mL vi al 1 mg rocuronium (ZEMURON) 50 mg/5 mL injectio n 5 mg sodium chloride 0.9 % infusion 600 mL * Agents Name O2 N2O Air Sevoflurane Inspired Sevoflurane * Blood No blood administrations on file. Lines, Drains, and Airways Type Details Placement Removal Peripheral IV Placement Date: 08/06 05/31; Placement Time: 1458; Catheter Size: 20 G; Orientation: Anterior, Right; Location: Forearm; Site Prep: Chlorhexidine; Local Anes: None; Technique: Anatomical landmarks; Inserted by: Halie Cross RN; Insertion Attempts: 2; Patient Tolerance: Tolerated well 08/19/24 1458 by Nneka Cross RN ETT Placement Date: 08/06 06/30; Placement Time: 1402 (created via procedure documentation); Blade Size: 3; Location: Oral; Removal Date: 08/20/24; Removal Time: 1405 08/20/24 1402 by Liborio Peralta CRNA 08/20/24 1405 by Liborio Peralta CRNA documented in this encounter Social History Tobacco Use Types Packs/Day Years Used Date Smoking Tobacco: Never Smokeless Tobacco: Never Alcohol Use Standard Drinks/Week Comments Never 0 (1 standard drink = 0.6 oz pur e alcohol) [facility] Utilities Answer Date Recorded In [...] hard at all 05/28/2024 [facility] [place] of Occupat ional Health - Occupational Stress [...] on file documented as of this encounter Functional Status * Question Answer [...] 1:23 PM EDT Polly Lacey RN * [place] Suicide Severity Rating Scale (Screener/Recent Self-Report) Question Answer Date of Assessment Author 6. Suicidal Behavior (Lifetime) No 1:23 PM EDT Polly Cabrera RN documented as of this encounter OR Notes * Anesthesia Postprocedure Evaluation - Liborio Peralta CRNA - 08/20/2024 2:18 PM EDT Patient: Whitney Presley Procedure Summary Date: 08/20/24 Room / Location: [facility] ENDOSCOPY 3 / [facility] Anesthesia Start: 1344 Anesthesia Stop: 1418 Procedure: ESOPHAGOGASTRODUODENOSCOPY Diagnosis: Dysphagia, unspecified type (Dysphagia, unspecified type [R13.10]) Surgeons: Blu Alvarado MD Provider: Akash Anguiano MD Anesthesia Type: general ASA Status: 2 Anesthesia Type: general Vitals Vitals Value Taken Time BP Temp Pulse 90 08/20/24 14:18 Resp SpO2 99 % 08/20/24 14:18 Vitals shown include unfiled device data. Post Anesthesia Care and Evaluation Patient location during evaluation: PACU Patient participation: complete - patient participated Level of consciousness: awake and alert Pain management: adequate Airway patency: patent Anesthetic complications: No anesthetic complications PONV Status: none Cardiovascular status: hemodynamically stable and acceptable Respiratory status: nonlabored ventilation, acceptable and nasal cannula Hydration status: acceptable Comments: 99/58 97.0 rr15 * Anesthesia Procedure Notes - Liborio Peralta CRNA - 08/20/2024 2:02 PM EDT Associated Order(s): Airway Airway Reason: elective Date/Time: 08/20/2024 2:02 PM Airway not difficult General Information and Staff Patient location during procedure: OR DAYNE/CAA: Junior Zbigniew Jain CRNA Indications and Patient Condition Indications for airway management: airway protection Preoxygenated: yes MILS not maintained throughout Mask difficulty assessment: 1 - vent by mask Final Airway Details Final airway type: endotracheal airway Successful airway: ETT Cuffed: yes Successful intubation technique: direct laryngoscopy and RSI Adjuncts used in placement: cricoid pressure and intubating stylet Endotracheal tube insertion site: oral Blade: Mcdonald Blade size: 3 ETT size (mm): 6.5 Cormack-Lehane Classification: grade I - full view of glottis Placement verified by: chest auscultation and capnometry Measured from: lips ETT/EBT to lips (cm): 20 Number of attempts at approach: 1 Assessment: lips, teeth, and gum same as pre-op and atraumatic intubation Additional Comments Negative epigastric sounds, Breath sound equal bilaterally with symmetric chest rise and fall * Anesthesia Preprocedure Evaluation - Akash Anguiano MD - 08/20/2024 1:23 PM EDT Anesthesia Evaluation Patient summary reviewed and Nursing notes reviewed Airway Mallampati: I TM distance: >3 FB Neck ROM: full No difficulty expected Dental - normal exam Pulmonary - negative pulmonary ROS and normal exam Cardiovascular - negative cardio ROS and normal exam Neuro/Psych (+) psychiatric history Anxiety GI/Hepatic/Renal/Endo (+) hiatal hernia, GERD Musculoskeletal (-) negative ROS Abdominal - normal exam Bowel sounds: normal. 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 Plan discussed with PROMOTIONAL MODEL. CODE STATUS: documented in this encounter Plan of Treatment Upcoming Encounters Date Type Department Care Team (Late st Contact Info) Description 01/20/2025 3:30 PM EST Office Visit [facility] [address] [facility] [address] [address] Robbin Escalante MD [address] [address] documented as of this encounter Procedures Procedure Name Priority Date/Time Associated Diagnosis Comments ANESTHESIA INTUBATION Routine 08/20/2024 2:02 PM EDT documented in this encounter Results * BH AN ETT AIRWAY (08/20/2024 2:02 PM EDT) Liborio Shook CRNA - 08/20/2024 2:02 PM EDT Liborio Peralta CRNA 08/20/2024 2:03 PM Airway Reason: elective Date/Time: 08/20/2024 2:02 PM Airway not difficult General Information and Staff Patient location during procedure: OR PROMOTIONAL MODEL/CAA: Junior Zbigniew Jain, DAYNE Indications and Patient Condition Indications for airway management: airway protection Preoxygenated: yes MILS not maintained throughout Mask difficulty assessment: 1 - vent by mask Final Airway Details Final airway type: endotracheal airway Successful airway: ETT Cuffed: yes Successful intubation technique: direct laryngoscopy and RSI Adjuncts used in placement: cricoid pressure and intubating stylet Endotracheal tube insertion site: oral Blade: Mcdonald Blade size: 3 ETT size (mm): 6.5 Cormack-Lehane Classification: grade I - full view of glottis Placement verified by: chest auscultation and capnometry Measured from: lips ETT/EBT to lips (cm): 20 Number of attempts at approach: 1 Assessment: lips, teeth, and gum same as pre-op and atraumatic intubation Additional Comments Negative epigastric sounds, Breath sound equal bilaterally with symmetric chest rise and fall Liborio Peralta CRNA ANESTHESIA ORDERABLES Final Res ult documented in this encounter Visit Diagnoses Not on filedocumented in this encounter Administered Medications Inactive Administered Medications - up to 3 most recent administrations Medication Order MAR Action Action Date Dose Rate Site dexAMETHasone (DECADRON) injection Intravenous, As Needed, Starting on Mon08/20/24 at 1350 Given 08/20/2024 1:50 PM EDT 4 mg glycopyrrolate (ROBINUL) injection Intravenous, As Needed, Starting on Mon08/20/24 at 1410 Given 08/20/2024 2:01 PM EDT 0.2 mcg lidocaine PF 1% (XYLOCAINE) injection Intravenous, As Needed, Starting on Mon08/20/24 at 1347 Given 08/20/2024 1:47 PM EDT 50 mg neostigmine injection Intravenous, As Needed, Starting on Mon08/20/24 at 1405 Given 08/20/2024 2:01 PM EDT 1 mg ondansetron (ZOFRAN) injection Intravenous, As Needed, Starting on Mon08/20/24 at 1356 Given 08/20/2024 1:56 PM EDT 4 mg Phenylephrine HCl-NaCl 100 mcg/ml injection Intravenous, As Needed, Starting on Mon08/20/24 at 1354 Given 08/20/2024 1:58 PM EDT 100 mcg Given 08/20/2024 1:54 PM EDT 100 mcg propofol (DIPRIVAN) injection Intravenous, As Needed, Starting on Mon08/20/24 at 1347 Given 08/20/2024 1:47 PM EDT 200 mg rocuronium (ZEMURON) injection Intravenous, As Needed, Starting on Mon08/20/24 at 1347 Given 08/20/2024 1:47 PM EDT 5 mg sodium chloride 0.9 % infusion Intravenous, Continuous PRN, Starting on Mon08/20/24 at 1344 New Bag 08/20/2024 1:44 PM EDT Succinylcholine Chloride (ANECTINE) injection Intravenous, As Needed, Starting on Mon08/20/24 at 1347 Given 08/20/2024 1:47 PM EDT 140 mg documented in this encounter Additional Health Concerns Assessment Noted Time PHQ-2 Depression Total Score: 2 05/28/19 4:39 PM EDT documented as of this encounter Care Teams Curator Herbarium Relationship Specialty Start Date End Date Norma Friedman APRN [address] [place] RAFA[place] APPIAH [address] PCP - General Family Medicine 05/14/24 documented as of this encounter
--- OUTSIDE RECORDS SUMMARY | 2024-08-29 10:00 | XMS_ITS | Encounter Summary ---
Author Organization [facility] Address [address] [place] [address] Care Team Providers Care Certified Emergency Vehicle Technician Name Role Phone IvyKade goldbergjoseseven JOLENE Primary Care Provider + [phone] Reason for Visit * Reason Comments Problem Encounter Details Date Type Department Care Team (Late st Contact Info) Description 08/29/2024 10:00 AM EDT Routine [facility] OBGYN [address] [place] [address] Staci Jain MD [address] [place] [address] [place]: 26w4d Social History Tobacco Use Types Packs/Day Years Used Date Smoking Tobacco: Never Smokeless Tobacco: Never Alcohol Use Standard Drinks/Week Comments Never 0 (1 standard drink = 0.6 oz pur e alcohol) [facility] Utilities Answer Date Recorded In the past 12 months has [employer] gas, oil, or water [employer] threatened to shut off services in your [...] and heating? Not hard at all 05/28/2024 [facility] [place] [facility] Health - Occupational Stress Questionnaire Answer Date [...] [facility] GASTROENTEROLOGY [address] [address] Robbin Escalante MD [address] [address] documented as of this encounter Procedures Procedure [...] 08/30/2024 6:09 AM EDT Performed at: [address] [id number] Mobile Service Rv Technician: Kevin Harman MD, Phone: [phone] Patient Fasting: N us Staci Jain MD LAB BLOOD ORDERABLES Final Result [facility] ([facility]) [address] [place] [address], [facility] [address] [place] [address], * (ABNORMAL) Comprehensive Metabolic Panel (08/29/2024 11:05 [...] 11:0 5 AM EDT 08/29/2024 Narrative [facility] (AMBULATORY) - 08/30/2024 6:09 AM EDT Performed at: 01 - [place] [address] [address] [place], [place] [id number] Mobile Service Rv Technician: Kevin Harman MD, Phone: [phone] Patient Fasting: N Staci Jain MD LAB BLOOD ORDERABLES Final Result Performing Organization Address City/[facility]/ZIP Co de Phone Number [facility] ([facility]) [address] [place] [address], [place] [phone] [facility] [address] [place] [address], [place] [phone] * (ABNORMAL) POC Urinalysis Dipstick (08/29/2024 10:13 AM EDT) Glucose, UA Negative Negative mg/dL [facility] Protein, POC Trace(A) Negative mg/dL [facility] Urine 08/29/2024 10:1 3 AM EDT us Staci Jain MD POINT OF CARE TEST OR DERABLES Final Result Performing Organization Address City/[facility]/ZIP Co de Phone Number [facility]
[address] [place] [address], documented in this encounter Visit Diagnoses Diagnosis [...] documented as of this encounter Care Teams Certified Emergency Vehicle Technician Relationship Specialty Start Date End Date Norma Friedman APRN [address] [place] G3 RAFAELA APPIAH [address] PCP - General Family Medicine 05/14/24 documented as of this encounter
--- OUTSIDE RECORDS SUMMARY | 2024-09-23 10:00 | XMS_ITS | Encounter Summary ---
Author Organization [facility] Address [address] [place] [address] Care Team Providers Care Fruit Cutter Name Role Phone Norma Friedman JOLENE Primary Care Provider +1- [phone] Reason for Referral * Consultation (Routine) - Authorized Specialty Diagnoses / Procedures Referred By Contleyla t Referred To Contact Cardiology Diagnoses Supervision of high risk , antepartum Cardiac arrhythmia, unspecified cardiac arrhythmia type Liborio Weller MD [address] [facility] [address] [place] [address] Phone: tel: fax: Referral ID Status Reason Start Date Expiration Date Visits Requested Visits Authorized [id number] Authorized Specialty Services Required 09/23/2024 03/25/2026 1 1 Encounter Details Date Type Department Care Team ([facility] st Contact Info) Description 09/23/2024 10:00 AM EDT Office Visit Medical Office Building Obstetrics and Gynecology [address] [facility], [address] [place] [address] Liborio Weller MD [address] [facility] [address] [place] [address] Supervision of high risk , [...] more drinks on one occasion? Never 09/23/2024 [place] Depression Scale Answer Date Recorded [place] Depression Scale Total 0 09/23/2024 The thought of harming myself has occurred to me . Never 09/23/2024 Education Answer Date Recorded What is the highest level of school you have completed or the highest degree you have received? Associate degree: academic program 09/23/2024 Estimated Date of Delivery Comme nts Yes 12/01/2024 Sex and Gender Information Value Date Recorded [...] last week on 09/19. She presented to [facility] for chest pain and palpitations. She has [...] 09/25 and has otherwise never seen a logistics project manager. She has never seen a a&p technician. She also reports during this admission she [...] None N JAGDISH Complications: Potassium (K) deficiency [place] Depression Scale Total: 0 Gynecology History No [...] has a past surgical history that includes [place] tooth extraction (N/A); section, low transverse (N/A); [...] prescription(s): ferosul, potassium chloride cr, prenat mv-min w/zw-hhqtpi-ylh, and thiamine. Allergies Allergies[1] Review of Systems [...] UAD, CL 3.9cm Plan for TOLAC PPBC BTL, KMA signed 09/23/24 Tachycardia Arrhythmia Had tachycardia and arrhythmia during admission to [facility] on 09/19 HR to 170s-180s with [...] other day Has never been evaluated by logistics project manager for salt wasting nephropathy PLAN Has [...] the patient, and documenting this visit. (Est [id number]) Brandee Pringle MD Obstetrics & Gynecology, PGY-2 [...] Care Team (Late st Contact Info) Description 09/25/2024 2:20 PM EDT Office Visit [facility] Nephrology, Bone & Mineral Metabolism [address] [place] [address] Scheduled Referrals Name Type Priority [...] Ketones, Urine 40(A) Negative mg/dL POCT Specific [place], Urine 1.015 POCT Blood, Urine Negative Negative POCT pH, Urine >=9.0(A) 5.0 to 8.0 POCT Protein, Urine 100(A) Negative mg/dL POCT Urobilinogen, Urine 0.2 0.2, 1 E.U./dL POCT Nitrite, Urine Negative Negative POCT Leukocyte Esterase, Urine Negative Negative Test Strip Lot Number [id number] Test Strip Lot Expiration 07/2025 Urine Urine [...] documented as of this encounter Care Teams Fruit Cutter Relationship Specialty Start Date End Date Norma Friedman APRN [address] [id number] PCP - General 09/23/24 documented as of this encounter
[2024-09-24] VITALS (13 sets, daily range): BP systolic 101–122; BP diastolic 48–71; PULSE 77–95; RESP 18; O2SAT 100
--- OUTSIDE RECORDS SUMMARY | 2024-09-24 09:04 | XMS_ITS | Clinical Summary ---
Author Organization [facility] [place] [address] Phone Care Team Providers Care Associate Software Developer Name Role Phone Unavailable Primary Care [...] migh t be different from the original. [facility] - Edwardo Ojeda MD Interventional Pain Protocol: NS Appt 03/29/22 Letter Sent Maxime report completed (EVERY 3 MONTHS) ( 03/23/22) Pharmacy: [facility] [address] [place] [address] [address] [facility] south - [phone] No known active problems Social History Tobacco [...] patient's age to complete this topic Insurance [employer] [facility] [id number] [id number] [address] [id number] [facility] [employer] [facility] [address]
--- OUTSIDE RECORDS SUMMARY | 2024-09-24 09:04 | XMS_ITS | Clinical Summary ---
Author Organization Healthcare Address [address] [place] [address] Care Team Providers Care Outreach Assistant Name Role Phone Norma Friedman RECYCLING OR RUBBISH COLLECTOR Primary Care Provider +1- [phone] Allergies Active Allergy Reactions Criticality Noted Date Comments Peanut Allergen Powder-Dnfp Hives Medium 09/24/19 25 Medications Prenat MV-Min w/Nr-Sksqdz-TT A ( COMPLETE PO) 9 Active potassium chloride CR 10 MEQ PO ER tablet Take 1 tablet by mouth 2 times a day. 5 Active thiamine (Vitamin B-1) 100 MG tablet Take 1 tablet by mouth 1 time each day. 5 Active FeroSul 325 (65 Fe) MG tablet Take 1 tablet by mouth daily. 5 Active metoprolol succinate XL (Toprol XL) 25 MG 24 hr tablet Take 0.5 tablets by mouth 2 times a day. Do not crush or chew. 30 tablet 1 5 Active metoprolol succinate XL (Toprol XL) 25 MG 24 hr tablet Take 1 tablet by mouth 2 times a day. Do not crush or chew. 60 tablet 1 5 09/24/19 25 Discontinued Encounters Date Type Department Care Team Description 09/23/2024 10:00 AM EDT Office Visit Medical Office Building Obstetrics and Gynecology [address] [facility], [address] [place] [address] Liborio Weller MD Supervision of high risk , antepartum (Primary Dx); Cardiac arrhythmia, unspecified cardiac arrhythmia type 09/23/2024 Travel 09/17/2024 Telephone [facility] Nephrology, Bone & Mineral Metabolism [address] [facility], [address] [place] [address] Sherley Gold CNA 09/17/2024 Telephone Medical Office Building Obstetrics and Gynecology [address] [facility], [address] [place] [address] Josefina Shay RN 09/14/2024 Telephone [facility] Obstetrics & Gynecology [address] [place] [address] Susi Wren MD 07/22/2024 [facility] [address] [place] [address] Staci Jain MD History of proteinuria syndrome (Primary Dx); care, subsequent , second trimester 07/22/2024 [facility] [address] [place] [address] Sandy Cardenas MD from Last 3 Months [...] more drinks on one occasion? Never 09/23/2024 [place] Depression Scale Answer Date Recorded [place] Depression Scale Total 0 09/23/2024 The thought [...] Mass Index 26.91 09/23/2024 10:18 AM EDT Plan of Treatment Upcoming Encounters Date Type Department Care Team (Late st Contact Info) Description 09/25/2024 2:20 PM EDT Office Visit [facility] Nephrology, Bone & Mineral Metabolism [address] [facility], [address] [place] [address] Health Maintenance Due Date Last Done Comments [facility]-/Child/Adol SDOH Screenings 1991 [facility]-Varicella Vaccines (1 of 2 - 13+ 2-dose series) 2004 [facility]- SDOH Screenings 2009 [facility]-Adult SDOH Screenings 2009 [facility]-Hepatitis B Vaccines (1 of 3 - 19+ 3-dose series) 2010 [facility]-Pap Smear 2012 [facility]-Cervical Cancer Screening 2021 [facility]-HPV/Cotest 2021 [id number] Vaccine (2 - season) 2023 05/04/2022 [facility]-Influenza Vaccine (#1) 2024 03/30/2016, [facility]-RSV Vaccine: 60+ Years or (1 - Risk 1-dose series) 10/07/2024 [facility]-Depression Screening 09/23/2025 09/23/2024 [facility]-DTaP,Tdap,and Td Vaccines (8 - Td or Tdap) 09/09/2034 09/09/2024, 06/01/2022, 10/03/2020, Additional history exists [facility]-Zoster Vaccines (1 of 2) 2041 HPV Vaccines Completed 03/29/2017, 07/08, 06/23/2016 [facility]-Hepatitis A Vaccines Aged Out 01/15/2018 No longer eligible based on patient's age to complete this topic [facility]-HIV Screening Completed 01/22/2019 [facility]-Hepatitis C Screening Completed 01/22/2019 [facility]-Obesity Intervention Completed 09/23/2024 [facility]-HIB Vaccines Aged Out No longer e [...] EDT Supervision of high risk , antepartum HEPATITIS C ANTIBODY W/REFLEX TO HCV QUANT PCR Routine 01/22/2019 9:57 AM EST HIV 1/2 ANTIBODY/ANTIGEN SCREEN WITH REFLEX TO HIV I/II DIFFERENTIATION Routine 01/22/2019 9:57 AM EST from Last 3 Months or Most Recently Relevant to Health Maintenance Results * (ABNORMAL) POCT Urinalysis Dipstick (09/23/2024 10:54 AM EDT) POCT Urine Color Yellow POCT Urine Clarity Clear POCT Glucose Urine Negative Negative mg/dL POCT Bilirubin, Urine Small(A) Negative POCT Ketones, Urine 40(A) Negative mg/dL POCT Specific [place], Urine 1.015 POCT Blood, Urine Negative Negative POCT pH, Urine >=9.0(A) 5.0 to 8.0 POCT Protein, Urine 100(A) Negative mg/dL POCT Urobilinogen, Urine 0.2 0.2, 1 E.U./dL POCT Nitrite, Urine Negative Negative POCT Leukocyte Esterase, Urine Negative Negative Test Strip Lot Number [id number] Test Strip Lot Expiration 07/2025 Urine Urine specimen obtained by clean catch procedure / Unknown 09/23/2024 10:54 AM EDT Liborio Weller MD POINT OF CARE TEST ENTER/EDIT ORDERABLES Edited Result - Final * HIV 1 & 2 Antibody/Antigen Screen [...] LAB BLOOD ORDERABLES Fin al Result SUNQUEST from Last 3 Months or Most Recently Relevant to Health Maintenance Insurance [employer] [facility] MEDICAID Care Teams Outreach Assistant Relationship Specialty Start Date End Date Norma rFiedman APRN [address] [place] [id number] PCP - General 09/23/24
--- OUTSIDE RECORDS SUMMARY | 2024-09-24 09:04 | XMS_ITS | Encounter Summary ---
Author Organization Healthcare Address [address] [place] [address] Care Team Providers Care Truck Driver Supervisor Name Role Phone Norma Friedman APRN Primary Care Provider +1- [phone] Encounter Details Date Type Department Care Team (Latest Contact Info) Description 09/23/2024 Travel Social History Tobacco Use Types Packs/Day [...] more drinks on one occasion? Never 09/23/2024 Bertrand Depression Scale Answer Date Recorded Bertrand Depression Scale Total 0 09/23/2024 The thought [...] as of this encounter Functional Status * AUDIT-C Score [...] Hailey Crandall documented as of this encounter Plan of Treatment Upcoming Encounters Date Type Department Care Team (Late st Contact Info) Description 09/25/2024 2:20 PM EDT Office Visit [facility] Nephrology, Bone & Mineral Metabolism [address] [facility], [address] [place] [address] documented as of this encounter Visit Diagnoses Not on filedocumented in this encounter Additional Health Concerns Assessment Noted Time A Body Mass Index follow-up plan has been documented for the patient 09/23/2024 8:28 PM EDT documented as of this encounter Care Teams Truck Driver Supervisor Relationship Specialty Start Date End Date Norma Friedman APRN [address] [place] [address] PCP - General 09/23/24 documented as of this encounter
--- OUTSIDE RECORDS SUMMARY | 2024-09-24 09:04 | XMS_ITS | Encounter Summary ---
Author Organization Healthcare Address [address] [place] [address] Care Team Providers Care Wrapper Hands Sprayer Name Role Phone Unavailable Primary Care Provider Unavailabl e Encounter Details Date Type Department Care Team (Late st Contact Info) Description 09/17/2024 Telephone [facility] Nephrology, Bone & Mineral Metabolism [address] [place] [address] Sherley Gold, SEPARATOR OPERATOR [employer] - 7 MAIN MEDICAL-SURGICAL Social History [...] pt no answer left Vm about dr Waterman} documented in this encounter Plan of Treatment Upcoming Encounters Date Type Department Care Team (Late st Contact Info) Description 09/25/2024 2:20 PM EDT Office Visit [facility] Nephrology, Bone & Mineral Metabolism [address] , [address] [place] [address] documented as of this encounter Visit Diagnoses Not on filedocumented in this encounter
--- OUTSIDE RECORDS SUMMARY | 2024-09-24 09:05 | XMS_ITS | Encounter Summary ---
[facility] Organization [facility] Address [address] [place] [id number] Care Team Providers Care Apparel Rental Clerk Name Role Phone Ivyashlyn Norma FERNÁNDEZ Primary Care Provider + [phone] Encounter Details Date Type Department Care Team (Late st Contact Info) Description 08/28/2024 Telephone [facility] OBGYN [address] [address] Staci Jain MD [address] [place] [id number] Social History Tobacco Use Types Packs/Day Years Used Date Smoking Tobacco: Never Smokeless Tobacco: Never Alcohol Use Standard Drinks/Week Comments Never 0 (1 standard drink = 0.6 oz pur e alcohol) [facility] Utilities Answer Date Recorded In the past 12 months has [employer], gas, oil, or water Workables threatened to shut off services in your [...] heating? Not hard at all 05/28/2024 [facility] - Occupational [...] sit with a family member admitted to [facility] today and does not know if she can make it back for labs (BMP). She does have an appt in [facility] at 10 am tomorrow. Advisedthat it would [...] states she was supposed to come into [facility] today to have labs drawn however sheis currently hung up at [facility] is wondering if she could just have labs drawn there? documented in this encounter Plan of Treatment Upcoming Encounters Date Type Department Care Team (Late st Contact Info) Description 01/20/2025 3:30 PM EST Office Visit [facility] GASTROENTEROLOGY [address] [facility] [address] [place] [address] Robbin Escalante MD [address] [facility] [address] [place] [address] documented as of this encounter Visit Diagnoses Not on filedocumented in this encounter Additional Health Concerns Assessment Noted Time PHQ-2 Depression Total Score: 2 05/28/19 25 4:39 PM EDT documented as of this encounter Care Teams Apparel Rental Clerk Relationship Specialty Start Date End Date Norma Friedman APRN [address] [place] [address] [place]FA[place] APPIAH [address] PCP - General Family Medicine 05/14/24 documented as of this encounter
--- OUTSIDE RECORDS SUMMARY | 2024-09-24 09:05 | XMS_ITS ---
Author Organization [facility] Address [address] [place] [address] Care Team Providers Care Cabinet Maker Name Role Phone Unavailable Primary Care Provider Unavailabl e Transplant Episode Kidney Potential Donor [facility] ([place], [place]) - [facility] Referred on 05/03/2022 Marked as Deferred on 05/04/2022 Reason: Other Kidney CoordinatorNadine Augustin R.N. Phone: N/A Fax: N/A Email: N/A Care Team Name Role Phone Fax Email Nadine Augustin R.N. Kidney Coordinator N/A N/A N/A Events Pre-Donation Referred: 05/03/2022
--- OUTSIDE RECORDS SUMMARY | 2024-09-24 09:05 | XMS_ITS | Encounter Summary ---
Author Organization [facility] Address [address] [place] [id number] Care Team Providers Care Solder Sprayer Name Role Phone Norma Friedman JOLENE Primary Care Provider +1- [phone] Reason for Referral * Consultation (Routine) - Authorized Specialty Diagnoses / Procedures Referred By Tarik pedersen Referred To Contact Nephrology Diagnoses History of proteinuria syndrome care, subsequent , second trimester Staci Jain MD [address] [address] Phone: tel: fax: [facility] Nephrology, Bone & Mineral Metabolism [address] [facility], [address] [place] [address] Phone: tel: fax: Referral ID Status Reason Start Date Expiration Date Visits Requested Visits Authorized [id number] Authorized Specialty Services Required 07/22/2024 01/21/2026 1 1 Encounter Details Date Type Department Care Team (Late st Contact Info) Description 07/22/2024 [facility] [address] [place] [address] Staci Jain MD [address] [place] [address] History of proteinuria syndrome (Primary Dx); care, [...] Upcoming Encounters Date Type Department Care Team ([facility] st Contact Info) Description 09/25/2024 2:20 PM EDT Office Visit [facility] Nephrology, Bone & Mineral Metabolism [address] [facility], [address] [place] [address] Scheduled Referrals Name Type Priority Associated Diagnoses Orde r Schedule Ambulatory referral to Nephrology Outpatient Referral Routine History of proteinuria syndrome care, subsequent , second trimester Expected: 07/22/2024 (Approximate), Expires: 01/23/2026 documented as of this encounter Visit Diagnoses Diagnosis History of proteinuria syndrome- Primary care, subsequent , second trimester documented in this encounter Care Teams Solder Sprayer Relationship Specialty Start Date End Date Norma Friedman APRN [address] [place] [address] PCP - General 09/23/24 documented as of this encounter
--- OUTSIDE RECORDS SUMMARY | 2024-09-24 09:05 | XMS_ITS | Clinical Summary ---
Author Organization [facility] Address [address] [place] [address] Care Team Providers Care Director Telemetry Name Role Phone Norma Friedman APRN Primary Care Provider + [phone] Allergies Active Allergy Reactions Criticality Noted Date [...] Department Care Team Description 5 Results Follow-Up [facility] OBGYN [address] [place] [address] Rob Wharton MD 5 Telephone [facility] [address] [facility] [address] [place] [address] Rob Wharton MD 5 10:00 AM EDT Routine [facility] OBG[facility] [address] [place] [address] Rob Wharton MD GA: 26w4d 5 Travel 5 Telephone [facility] [address] [facility] [address] [address] [place] [address] Rob Wharton MD 5 Telephone [facility] [address] [place] [address] Rob Wharton MD 5 1:44 PM EDT Anesthesia Event [facility] ENDO SUITES [address] [place] [address] Akash Anguiano MD Lanham, John, CRNA 5 1:33 PM EDT - 5 2:05 PM EDT Surgery [facility] END[facility] SU[facility] [address] [place] [address] Blu Alvarado MD ESOPHAGOGASTRODUODENOSCOPY [71123 (CPT )] 5 1:59 PM EDT - 5 4:28 PM EDT Hospital Encounter [facility] ANTEPARTUM [address] [place] [address] Rob Wharton MD Brunner, Mark I, MD Dysphagia, unspecified type (Primary Dx) Discharge Disposition: Home or Self Care 5 10:15 AM EDT Routine [facility] [address] [place] [address] Jacey Mathews, SENIOR SCHEDULER GA: 25w1d 5 Telephone [facility] OBGYN [address] [place] [address] Jacey Mathews, SENIOR SCHEDULER 5 Travel 5 Patient Outreach [facility] LABOR DELIVERY [address] [place] [address] Christy Zabala RN 5 9:10 AM EDT Routine [facility]BGYN [address] [facility] [address] [place] [address] Rob Wharton MD GA: 21w1d 5 8:00 AM EDT Office Visit [facility] MATERNAL MEDICINE [address] [facility] [address] [place] [address] Sebastian Larsen MD History of prior with small for gestational age (Primary Dx) 5 7:44 AM EDT - 5 11:59 PM EDT Hospital Encounter [facility] US PER DIAG CTR [address] [place] [address] Kelly Delgado, SENIOR SCHEDULER care, antepartum, unspecified ; High risk due to history of labor, antepartum; History of prior with small for gestational age Discharge Disposition: Home or Self Care 5 Travel 5 Results Follow-Up [facility] [address] [facility] [address] [place] [address] Kelly Delgado, JOLENE 5 10:10 AM EDT Routine [facility] [address] [facility] [address] [place] [address] Kelly Delgado, SENIOR SCHEDULER GA: 18w5d 5 9:30 AM EDT Ancillary Procedure [facility] [address] [facility] [address] [place] [id number] care in second trimester, unspecified 5 Travel 5 Telephone [facility] [address] [facility] [address] [address] [place] [address] Uriel Russ MD TRANSFER OF CARE REQ 5 10:15 PM EDT - 5 11:59 PM EDT Hospital Encounter [facility] LABOR DELIVERY [address] [place] [id number] Rob Wharton MD Mirsky, Elizabeth, MD Discharge Disposition: Home or Self Care 5 Travel 5 Telephone [facility] [address] [facility] [address] [address] [place] [address] Uriel Russ MD [facility], OB 5 Telephone [facility] OBG[facility] [address] [place] [address] Uriel Russ MD [facility] 5 E-Visit [facility] [address] [place] [address] E-VisitToni MD 5 Results Follow-Up [facility] OBGYN [address] [place] [address] Uriel Russ MD 5 3:20 PM EDT Routine [facility] OBGYN [address] [place] [address] Uriel Russ MD GA: 17w2d 5 3:00 PM EDT Ancillary Procedure [facility] O[facility] [address] [place] [address] Bleeding in early (Primary Dx) 5 Travel from Last 3 Months Family [...] In the past 12 months has e [employer], gas, oil, or water [employer] threatened to shut off services in your [...] Not hard at all 05/28/2024 [facility] of Occupat ional Health - [...] Office Visit [facility] GASTROENTEROLOGY [address] [phone] Robbin Escalante MD [address] [address] Health Maintenance Due Date Last Done Comments [...] TEST Routine 08/19/2024 4:17 PM EDT [facility] Routine 08/19/2024 3:25 PM [...] AM EDT Multigravida in second trimester [facility] Routine 07/22/2024 9:10 AM [...] 6:09 AM EDT Performed at: 01 - [address] [id number] Brim Blocker: Kevin Harman MD, Phone: [phone] Patient Fasting: N us Rob Wharton MD LAB BLOOD ORDERABLES Final Result [facility] (AMBULATORY) [address] [place] [address], [place] [phone] [facility] [address] [place] [address], [place] [phone] * (ABNORMAL) Comprehensive Metabolic Panel (08/29/2024 11:05 AM EDT) Only the most recent of3 resultswithin the time period is included. [facility] Glucose 72 65 - 99 mg/dL [...] - 08/30/2024 6:09 AM EDT Performed at: [address] [place] [id number] Brim Blocker: Kevin Harman MD, Phone: [phone] Patient Fasting: N Rob Wharton MD LAB BLOOD ORDERABLES Final Result Performing Organization Address City/[facility]/ZIP Co de Phone Number [facility] (AMBULATORY) [address] [place] [address], [place] [phone] [facility] [address] [place] [address], [place] [phone] * (ABNORMAL) POC Urinalysis Dipstick (08/29/2024 10:13 AM EDT) Only the most recent of5 resultswithin the time period is included. Pathologist [facility] Glucose, UA Negative Negative mg/dL [facility] Protein, POC Trace(A) Negative mg/dL [facility] Urine 08/29/2024 10:1 3 AM EDT us Rob Wharton MD POINT OF CARE TEST OR DERABLES Final Result [facility]
[address] [place] [address], [place] [phone] * BH AN ETT AIRWAY (08/20/2024 2:02 [...] bilaterally with symmetric chest rise and fall [facility] ANESTHESIA ORDERABLES Final Res ult * Tissue Pathology Exam (08/20/2024 1:55 PM EDT) Case Report Surgical Pathology Report Case: [id number] Authorizing Provider: Blu Alvarado MD Collected: 08/20/2024 01:55 PM Ordering Location: [facility] Received: 08/20/2024 02:14 PM ENDO SUITES Pathologist: Khalida Rhoades DO Specimen: Gastric, Antrum, antrum bx for path 08/22/2024 9:18 AM EDT [facility] Clinical Information Dysphagia, unspecified type 08/22/2024 9:18 AM EDT [facility] Final Diagnosis Stomach, antrum, biopsy: 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 pylori is negative (no organisms are identified) Negative for intestinal metaplasia, dysplasia, or malignancy 08/22/2024 9:18 AM EDT [facility] at 0918 EDT Gross Description 1. Gastric, Antrum. Received in formalin labeled antrum biopsy is a 0.4 x 0.2 x 0.2 cm pink-see soft tissue fragment submitted entirely in a single cassette. HDM 08/22/2024 9:18 AM EDT [facility] Microscopic Description The slides are reviewed and demonstrate histopathologic features supporting the above rendered diagnosis. 08/22/2024 9:18 AM EDT [facility] Tissue Pyloric antrum structure / Unknown 08/20/2024 1:55 PM EDT 08/20/2024 2:14 PM EDT us Blu Alvarado MD PATHOLOGY/CYTOLOGY ORDERABLES Final Result [facility]
[address] [place] [address], * Upper GI Endoscopy (08/20/2024 1:09 PM EDT) us Blu Alvarado MD INTERFACE NEEDS Final Result * (ABNORMAL) Basic Metabolic Panel (08/20/2024 5:25 AM EDT) Glucose 84 65 - 99 mg/dL 08/20/2024 6:13 AM EDT [facility] BUN 2.3(L) 6.0 - 20.0 mg/dL 08/20/2024 6:13 AM EDT [facility] Creatinine 0.51(L) 0.57 - 1.00 mg/dL 08/20/2024 6:13 AM EDT [facility] Sodium 139 136 - 145 mmol/L 08/20/2024 6:13 AM EDT [facility] Potassium 3.5 3.5 - 5.2 mmol/L 08/20/2024 6:13 AM EDT [facility] Chloride 109(H) 98 - 107 mmol/L 08/20/2024 6:13 AM EDT [facility] CO2 23.5 22.0 - 29.0 mmol/L 08/20/2024 6:13 AM EDT [facility] Calcium 7.8(L) 8.6 - 10.5 mg/dL 08/20/2024 6:13 AM EDT [facility] BUN/Creatinine Ratio 4.5(L) 7.0 - 25.0 08/20/2024 6:13 AM EDT [facility] Anion Gap 6.5 5.0 - 15.0 mmol/L 08/20/2024 6:13 AM EDT [facility] eGFR 126.6 >60.0 mL/min/1.7 3 08/20/2024 6:13 AM EDT [facility] Blood Venipuncture / Unknown 08/20/2024 5:25 AM EDT 08/20/2024 5:46 AM EDT Narrative [facility] - 08/20/2024 6:13 AM EDT [...] MD LAB BLOOD ORDERABLES Final Resu lt [facility]
[address] [place] [address], * (ABNORMAL) Potassium (08/19/2024 8:53 PM EDT) Potassium 2.7(L) 3.5 - 5.2 mmol/L 08/19/2024 9:20 PM EDT [facility] Blood Venipuncture / Unknown 08/19/2024 8:53 PM EDT 08/19/2024 9:04 PM EDT Kt Fan DO LAB BLOOD ORDERABLES Final Result [facility]
[address] [place] [address], * ABO RH Specimen Verification (08/19/2024 4:34 PM EDT) ABO Type O 08/19/2024 7:39 PM EDT [facility] LABORAT[facility] RH type Positive 08/19/2024 7:39 PM EDT [facility] Blood Venipuncture / Unknown 08/19/2024 4:34 PM EDT 08/19/2024 4:53 PM EDT Rob Wharton MD BLOOD BANK TEST ORDER FRANCO Final Result Performing Organization Address [facility] Co de Phone Number [facility]
[address] [place] [address], * Counts include 234 beds at the [facility] (08/19/2024 3:25 PM EDT) Only the most recent of2 resultswithin the time period is included. Anatomical Region Laterality Modality Ultrasound 08/19/2024 3:09 PM EDT Narrative 08/19/2024 4:54 PM EDT PAT NAME: CAROLE GIRARD MED REC#: [id number] DA: [id number] PAT GEND: F PAT TYPE: E EXAM TRAVIS: [id number] REF PHYS ROB WHARTON Comparison Studies The [...] EFW (oz) 9 oz EFW by: Hadlock ([id number]) Extended Cav. septi pel. tr 4.7 mm Conveyor Maintenance Mechanic 3.8 mm CM 7.5 mm 84% Nicolaides [...] Heart / Thorax 3-vessel view: Appears normal 6-benugs-vugjngd view: Appears normal Stomach: Appears normal Kidneys: [...] in 4wks for growth. Coding ======= Description: 63192-99 Follow Up Senior Shipping Clerk: RT Annetta Hartmann , [facility] Physician: Jo Chappell MD Electronically signed by: Jo Chappell MD at: 16:54 Procedure Note Jo Chappell MD - 08/19/2024 PAT NAME: CAROLE IGRARD MED REC#: [id number] DA: 1990 PAT GEND: F PAT TYPE: E EXAM TRAVIS: [id number] REF PHYS ROB WHARTON Comparison Studies The findings of this study are compared to the prior ultrasound studydated 07/22/24 Patient Status Inpatient Indication ======== History of c/s x1. History of . Vaginal bleeding. Maternal Assessment Xfaytr390 cm Height (ft)5 ft Height (in)4 in Xsbnve22 kg Weight (lb)158 lb BMI27.31 kg/m Method [...] Hadlock Femur44.9 mm 24w 6d 27% Hadlock Mswermx04.3 mm 25w 3d 50% Jamal HC / AC1.16 VBU275 g 24w 2d 16% Hadlock EFW (lb)1 lb EFW (oz)9 oz EFW by:Hadlock ([id number]) Extended Cav. septi pel. tr4.7 mm Vp3.8 mm CM7.5 mm 84% Nicolaides Head / Face / Neck Cephalic index0.71 <1% Nicolaides Extremities / Bony Struc FL / BPD0.78 FL / HC0.20 FL / AC0.23 Other Structures AJS994 bpm General Evaluation Cardiac activity present. FHR [...] normal Heart / Thorax 3-vessel view:Appears normal 0-lmhbgv-blnbdim view:Appears normal Stomach:Appears normal Kidneys:Appears normal Bladder:Appears [...] office in 4wks for growth. Coding ======= Description:65217-67 Follow Up Senior Shipping Clerk: Alison Verduzco RT R , [facility] Physician: Jo Chappell MD Electronically signed by: Jo Chappell MD at: 16:54 Kt Fan DO IMG US ORDERABLES Final Res ult * Urinalysis, Microscopic Only - Urine, Clean Catch (08/19/2024 3:02 PM EDT) Only the most recent of2 resultswithin the time period is included. RBC, UA 0-2 None Seen, 0-2 /HPF 08/19/2024 3:33 PM EDT [facility] WBC, UA 0-2 None Seen, 0-2 /HPF 08/19/2024 3:33 PM EDT [facility] Bacteria, UA None Seen None Seen /HPF 08/19/2024 3:33 PM EDT [facility] Squamous Epithelial Cells, UA 0-2 None Seen, 0-2 /HPF 08/19/2024 3:33 PM EDT [facility] Hyaline Casts, UA None Seen None Seen /LPF 08/19/2024 3:33 PM EDT [facility] Methodology Automated Microscopy 08/19/2024 3:33 PM EDT [facility] Urine Urine specimen obtained by clean catch procedure / Unknown Collection / Unknown 08/19/2024 3:02 PM EDT 08/19/2024 3:13 PM EDT Kt Fan DO URINE ORDERABLES Final Resu lt [facility]
[address] [place] [address], [place] [phone] * (ABNORMAL) Urinalysis With Microscopic If Indicated (No Culture) - Urine, Clean Catch (08/19/2024 3:02 PM EDT) Only the most recent of2 resultswithin the time period is included. Color, UA Yellow Yellow, Straw 08/19/2024 3:33 PM EDT [facility] Appearance, UA Clear Clear 08/19/2024 3:33 PM EDT [facility] pH, UA >=9.0(H) 5.0 - 8.0 08/19/2024 3:33 PM EDT [facility] Specific [place], UA 1.018 1.005 - 1.030 08/19/2024 3:33 PM EDT [facility] Glucose, UA Negative Negative 08/19/2024 3:33 PM EDT [facility] Ketones, UA 15 mg/dL (1+)(A) Negative 08/19/2024 3:33 PM EDT [facility] Bilirubin, UA Negative Negative 08/19/2024 3:33 PM EDT [facility] Blood, UA Negative Negative 08/19/2024 3:33 PM EDT [facility] Protein, UA 30 mg/dL (1+)(A) Negative 08/19/2024 3:33 PM EDT [facility] Leuk Esterase, UA Negative Negative 08/19/2024 3:33 PM EDT [facility] Nitrite, UA Negative Negative 08/19/2024 3:33 PM EDT [facility] Urobilinogen, UA 1.0 E.U./dL 0.2 - 1.0 E.U./dL 08/19/2024 3:33 PM EDT [facility] Urine Urine specimen obtained by clean catch procedure / Unknown Collection / Unknown 08/19/2024 3:02 PM EDT 08/19/2024 3:13 PM EDT us Kt Fan DO URINE ORDERABLES Final Resu lt [facility]
[address] [place] [address], * (ABNORMAL) CBC Auto Differential (08/19/2024 3:02 PM EDT) WBC 9.19 3.40 - 10.80 10*3/mm3 08/19/2024 3:23 PM EDT [facility] RBC 3.58(L) 3.77 - 5.28 10*6/mm3 08/19/2024 3:23 PM EDT [facility] Hemoglobin 10.5(L) 12.0 - 15.9 g/dL 08/19/2024 3:23 PM EDT [facility] Hematocrit 31.4(L) 34.0 - 46.6 % 08/19/2024 3:23 PM EDT [facility] MCV 87.7 79.0 - 97.0 fL 08/19/2024 3:23 PM EDT [facility] MCH 29.3 26.6 - 33.0 pg 08/19/2024 3:23 PM EDT [facility] MCHC 33.4 31.5 - 35.7 g/dL 08/19/2024 3:23 PM EDT [facility] RDW 13.4 12.3 - 15.4 % 08/19/2024 3:23 PM EDT [facility] RDW-SD 42.4 37.0 - 54.0 fl 08/19/2024 3:23 PM EDT [facility] MPV 12.0 6.0 - 12.0 fL 08/19/2024 3:23 PM EDT [facility] Platelets 241 140 - 450 10*3/mm3 08/19/2024 3:23 PM EDT [facility] Neutrophil % 66.8 42.7 - 76.0 % 08/19/2024 3:23 PM EDT [facility] Lymphocyte % 24.4 19.6 - 45.3 % 08/19/2024 3:23 PM EDT [facility] Monocyte % 7.6 5.0 - 12.0 % 08/19/2024 3:23 PM EDT [facility] Eosinophil % 0.7 0.3 - 6.2 % 08/19/2024 3:23 PM EDT [facility] Basophil % 0.2 0.0 - 1.5 % 08/19/2024 3:23 PM EDT [facility] Immature Grans % 0.3 0.0 - 0.5 % 08/19/2024 3:23 PM EDT [facility] Neutrophils, Absolute 6.14 1.70 - 7.00 10*3/mm3 08/19/2024 3:23 PM EDT [facility] Lymphocytes, Absolute 2.24 0.70 - 3.10 10*3/mm3 08/19/2024 3:23 PM EDT [facility] Monocytes, Absolute 0.70 0.10 - 0.90 10*3/mm3 08/19/2024 3:23 PM EDT [facility] Eosinophils, Absolute 0.06 0.00 - 0.40 10*3/mm3 08/19/2024 3:23 PM EDT [facility] Basophils, Absolute 0.02 0.00 - 0.20 10*3/mm3 08/19/2024 3:23 PM EDT [facility] Immature Grans, Absolute 0.03 0.00 - 0.05 10*3/mm3 08/19/2024 3:23 PM EDT [facility] nRBC 0.0 0.0 - 0.2 /100 WBC 08/19/2024 3:23 PM EDT [facility] Blood Line / Unknown 08/19/2024 3: 02 PM EDT 08/19/2024 3:10 PM EDT Kt Fan DO LAB BLOOD ORDERABLES Final Result [facility]
[address] [place] [address], [place] [phone] * Protein / Creatinine Ratio, Urine - [...] Fan DO URINE ORDERABLES Final Resu lt [facility]
[address] [place] [address], [place] [phone] * Type & Screen (08/19/2024 3:02 PM EDT) ABO Type O 08/19/2024 3:51 PM EDT [facility] RH type Positive 08/19/2024 3:51 PM EDT [facility] Antibody Screen Negative 08/19/2024 3:51 PM EDT [facility] T&S Expiration Date 08/22/2024 11:59:59 PM 08/19/2024 3:51 PM EDT [facility] Blood Line / Unknown 08/19/2024 3: 02 PM EDT 08/19/2024 3:15 PM EDT us Kt Fan DO BLOOD BANK TEST ORDERABLES Edited Result - Final [facility] LABOR[facility]
[address] [place] [address], [place] [phone] * (ABNORMAL) Magnesium (08/19/2024 3:02 PM EDT) Magnesium 1.5(L) 1.6 - 2.6 mg/dL 08/19/2024 5:12 PM EDT [facility] Blood Line / Unknown 08/19/2024 3: 02 PM EDT 08/19/2024 3:10 PM EDT us Kt Fan DO LAB BLOOD ORDERABLES Final Result Performing Organization Address [facility]/ZIP Co de Phone Number [facility]
[address] [place] [address], [place] [phone] * Lipase (08/19/2024 3:02 PM EDT) Lipase 13 13 - 60 U/L 08/19/2024 3:36 PM EDT [facility] Blood Line / Unknown 08/19/2024 3: 02 PM EDT 08/19/2024 3:10 PM EDT us Kt Fan DO LAB BLOOD ORDERABLES Final Result Performing Organization Address City/[facility]/ZIP Co de Phone Number [facility]
[address] [place] [address], [place] [phone] * Amylase (08/19/2024 3:02 PM EDT) Amylase 73 28 - 100 U/L 08/19/2024 3:36 PM EDT [facility] Blood Line / Unknown 08/19/2024 3: 02 PM EDT 08/19/2024 3:10 PM EDT us Kt Fan DO LAB BLOOD ORDERABLES Final Result [facility]
[address] [place] [address], * [place] Ob 14 + Weeks Single or First Gestation (07/05/2024 10:17 AM EDT) Anatomical Region Laterality Modality Body Ultrasound 07/05/2024 10:2 8 AM EDT Narrative 07/09/2024 7:02 PM EDT PAT NAME: CAROLE GIRARD MED REC#: [id number] DA: 1990 PAT GEND: F PAT TYPE: O EXAM TRAVIS: [id number] REF PHYS URIEL RUSS Erection Shop Supervisor Comments Still need heart views and PCI [...] EFW (oz) 9 oz EFW by: Hadlock ([id number]) Extended Conveyor Maintenance Mechanic 6.4 mm CM 3.3 mm 11% Nicolaides [...] Heart / Thorax 3-vessel view: not visualized 6-kwubob-pkjucko view: not visualized Diaphragm: Appears normal Diaphragm: [...] subsequent visit to complete the anatomic screening. Erection Shop Supervisor: Soo Harding RDMS Physician: Uriel Russ II, MD, FACOG Electronically signed by: Uriel Russ II, MD, FACOG at: 19:02 Procedure Note Uriel Russ MD - 07/09/2024 PAT NAME: CAROLE GIRARD MED REC#: [id number] DA: [id number] PAT GEND: F PAT TYPE: O EXAM TRAVIS: [id number] REF PHYS URIEL RUSS Erection Shop Supervisor Comments Still need heart views and PCI N/L, Kidneys, Legs suboptimal Indication ======== anatomy survey Comparison Studies There are no relevant prior studies to which this study is beingcompared Method ======= Voluson E6, Transabdominal ultrasound examination. View: Suboptimal view:limited by early gestational age ========= Love . Number of fetuses: 1 Dating ====== Method of dating:based on stated DUSTY GA by prior [id number] w + 5 d DUSTY by prior assessment:12/01/2024 Ultrasound examination on:07/05/2024 GA by U/S based upon:AC, BPD, Femur, HC GA by U/S18 w + 3 d DUSTY by U/S:12/03/2024 Previous dating:based on stated DUSTY, selected on 06/25/2024 Agreed DUSTY of previous datin12/01/2024 Assigned:based on stated DUSTY, selected on 07/05/2024 Assigned GA18 w + 5 d Assigned DUSTY:12/01/2024 [id number] d General Evaluation Cardiac activity present. FHR [...] 67% Hadlock HC / AC1.13 20% Hadlock KMA914 g 18w 6d 56% Hadlock EFW (lb)0 lb EFW (oz)9 oz EFW by:Hadlock ([id number]) Extended Vp6.4 mm CM3.3 mm 11% Nicolaides Extremities / Bony Struc FL / BPD0.80 >99% Hadlock FL / HC0.20 98% Hadlock FL / AC0.23 89% Hadlock Other Structures [id number] bpm Anatomy Cranium:Appears normal Lateral ventricles:Appears normal Choroid plexus:Appears normal Midline falx:Appears normal Cavum septi pellucidi:Appears normal Cerebellum:Appears normal Cisterna magna:Appears normal Lips:suboptimal Profile:Appears normal Nose:suboptimal 4-chamber view:not visualized RVOT view:not visualized LVOT view:not visualized Heart / Thorax 3-vessel view:not visualized 5-svqlls-buabaeo view:not visualized Diaphragm:Appears normal Diaphragm:Intact Cord insertion:Appears [...] Structures Uterus / Cervix Uterus:Visualized Cervix:Visualized Cervical jdqomy56.6 mm Ovaries / Tubes / Adnexa Rt [...] a subsequent visit tocomplete the anatomic screening. Erection Shop Supervisor: Soo Harding RDMS Physician: Uriel Russ II, MD, FACOG Electronically signed by: Uriel Russ II, MD, FACOG at: 9:02 us Uriel Russ MD [facility] US ORDERABLES Final Result * Urine Culture [...] / Unknown 07/05/2024 07/05/2024 Comment:Urine Release to [facility] Rufus [facility] (AMBULATORY) - 07/07/2024 3:35 AM EDT Performed at: - Lab[address] [id number] Brim Blocker: Michael Martinez PhD, Phone: [phone] us Kelly Delgado APRN MICROBIOLOGY - GENERAL ORDER [place] Final [facility] [address] [place] [address], [facility] [address] [place] [address], * Tryptase (06/25/2024 4:34 PM EDT) Tryptase 6.1 2.2 - 13.2 ug/L [facility] Blood 06/25/2024 4:34 PM EDT 06/25/2024 Narrative [facility] (AMBULATORY) - 06/28/2024 9:10 AM EDT Performed at: - Lab[address] [id number] Brim Blocker: Fang Yu MD, Phone: [phone] us Uriel Russ MD LAB BLOOD ORDERABLES Final Resu lt [facility] [address] [place] [address], [facility] [address] [place] [address], * Vitamin D,25-Hydroxy (06/25/2024 4:34 PM EDT) 25 Hydroxy, Vitamin D 33.7 30.0 - 100.0 ng/mL [facility] Comment: Vitamin D deficiency has been defined by the [place] [employer] and an Endocrine Society practice guideline as a level of serum 25-OH vitamin D less than 20 ng/mL (1,2). The Endocrine Society went on to further define vitamin D insufficiency as a level between 21 and 29 ng/mL (2). 1. IOM ([place] [employer]). 2010. Dietary reference intakes for calcium and D. [place]: The National Academies Press. 2. [place], [place], Wade MITCHELL, et al. Evaluation, treatment, and prevention of vitamin D deficiency: an Endocrine Society clinical practice guideline. JCEM. 2010; 96(7):1911-30. Blood 06/25/2024 4:34 PM EDT 06/25/2024 Narrative [facility] (AMBULATORY) - 06/26/2024 7:37 AM EDT Performed at: - [facility] [address] [place] [id number] Brim Blocker: Michael Martinez PhD, Phone: [phone] us Uriel Russ MD LAB BLOOD ORDERABLES Final Resu lt Performing Organization Address City/[facility]/ZIP Co de Phone Number [facility] (AMBULATORY) [address] [place] [address], [facility] [address] [place] [address], [place] [phone] * TSH (06/25/2024 4:34 PM EDT) TSH 0.593 0.450 - 4.500 uIU/mL [facility] Blood 06/25/2024 4:34 PM EDT 06/25/2024 Narrative [facility] ([facility]) - 06/26/2024 7:37 AM EDT Performed at: [address] [id number] Brim Blocker: Michael Martinez PhD, Phone: [phone] us Uriel Russ MD LAB BLOOD ORDERABLES Final Resu lt Performing Organization Address City/[facility]/ZIP Co de Phone Number [facility] (AMBULATORY) [address] [place] [address], [place] [phone] [facility] [address] [place] [address], * T4, Free (06/25/2024 4:34 PM EDT) Free T4 1.09 0.82 - 1.77 ng/dL [facility] Blood 06/25/2024 4:34 PM EDT 06/25/2024 Narrative [facility] ([facility]) - 06/26/2024 7:37 AM EDT Performed at: [address] [id number] Brim Blocker: Michael Martinez PhD, Phone: [phone] us Uriel Rsus MD LAB BLOOD ORDERABLES Final Resu lt Performing Organization Address City/[facility]/ZIP Co de Phone Number [facility] [address] [place] [address], [facility] [address] [place] [address], [place] [phone] * (ABNORMAL) Hemoglobin A1c (06/25/2024 4:34 PM EDT) Pathologist [facility] Hemoglobin A1C 4.7(L) 4.8 - 5.6 % [facility] Comment: Prediabetes: 5.7 - 6.4 Diabetes: >6.4 Glycemic control for adults with diabetes: <7.0 Blood 06/25/2024 4:34 PM EDT 06/25/2024 Narrative [facility] (AMBULATORY) - 06/26/2024 4:35 AM EDT Performed at: - [facility] [address] [place] [id number] Brim Blocker: Michael Martinez PhD, Phone: [phone] Uriel Russ MD LAB BLOOD ORDERABLES Final Resu lt Performing Organization Address City/[facility]/ZIP Co de Phone Number [facility] [address] [place] [address], [place] [phone] [facility] [address] [place] [address], [place] [phone] * (ABNORMAL) Lipid Panel (06/25/2024 4:34 PM EDT) Total Cholesterol 203(H) 100 - 199 mg/dL [facility] Triglycerides 125 0 - 149 mg/dL [facility] HDL Cholesterol 52 >39 mg/dL [facility] VLDL Cholesterol Rom 22 5 - 40 mg/dL [facility] LDL Chol Calc (NIH) 129(H) 0 - 99 mg/dL [facility] Blood 06/25/2024 4:34 PM EDT 06/25/2024 Narrative [facility] (AMBULATORY) - 06/26/2024 6:36 AM EDT Performed at: 01 - [facility] [address] [facility], [place], [place] [id number] Brim Blocker: Michael Martinez PhD, Phone: [phone] us Uriel Russ MD LAB BLOOD ORDERABLES Final Resu lt [facility] (AMBULATORY) [address] [place] [address], [facility] [address] [place] [address], * US Ob Limited 1 + Fetuses (06/25/2024 3:10 PM EDT) Anatomical Region Laterality Modality Body Ultrasound 06/25/2024 3:54 PM EDT Narrative 06/26/2024 1:34 PM EDT PAT NAME: CAROLE GIRARD MED REC#: [id number] DA: [id number] PAT GEND: F PAT TYPE: O EXAM TRAVIS: [id number] REF PHYS JEB URIEL Indication ======== Heart Tones Comparison Studies The [...] clinically indicated for the condition being monitored. Erection Shop Supervisor: RT Annetta Bruno, [facility] Physician: Uriel Russ II, MD, FACOG Electronically signed by: Uriel Russ II, MD, FACOG at: 13:34 Procedure Note Uriel Russ MD - 06/26/2024 PAT NAME: CAROLE GIRARD MED REC#: [id number] DA: 1990 PAT GEND: F PAT TYPE: O EXAM TRAVIS: [id number] REF PHYS URIEL RUSS Indication ======== Heart Tones Comparison Studies The findings of this study are compared to the prior ultrasound studydated 05/27/2024 Method ======= Transabdominal ultrasound examination. View: Suboptimal view: limited byfetal position ========= Love . Number of fetuses: 1 Dating ====== Method of dating:based on stated DUSTY GA by prior [id number] w + 2 d DUSTY by prior assessment:12/01/2024 Previous dating:based on stated DUSTY, selected on 05/27/2024 Agreed DUSTY of previous datin12/01/2024 Assigned:based on stated DUSTY, selected on 06/25/2024 Assigned [id number] w + 2 d Assigned DUSTY:12/01/2024 [email or web address] d General Evaluation Cardiac activity present. FHR 150 bpm. movements visualized. Presentation variable. Placenta Placental site: anterior. Amniotic fluid Amount of AF: normal. MVP 2.7 cm. Maternal Structures Uterus / Cervix Cervical paqmjv43.1 mm Impression heart tones 150. 17 weeks 2 days. EDC 12/01/2024. Single fetus.Cervical length 33 mm. Recommendation Follow-up scan as clinically indicated for the condition beingmonitored. Erection Shop Supervisor: RT Annetta Bruno, [facility] Physician: Uriel Russ II, MD, FACOG Electronically signed by: Uriel Russ II, MD, FACOG at: :34 Uriel Russ MD [facility] US ORDERABLES Final Result * Hepatitis C Antibody (04/12/2024) Hep C Virus Ab negative Blood Historical Provider LAB BLOOD ORDERABLES Lena l Result from Last 3 Months or Most Recently Relevant to Health Maintenance Insurance [employer] [facility] Care Teams Director Telemetry Relationship Specialty Start Date End Date Norma Friedman APRN [address] [place] G3 RAFAELA APPIAH [address] PCP - General Family Medicine 05/14/24
--- OUTSIDE RECORDS SUMMARY | 2024-09-24 09:05 | XMS_ITS | Encounter Summary ---
[facility] Address [address] [place] [address] Care Team Providers Care Monument Setter Name Role Phone Norma Friedman APRN Primary Care Provider + [phone] Encounter Details Date Type Department Care Team (Late st Contact Info) Description 08/19/[address] [facility] OBGYN [address] [place] [address] Jacey Mathews, BOARD ATTENDANT [address] [facility] [address] [place] [address] Social History Tobacco Use Types Packs/Day Years Used Date Smoking Tobacco: Never Smokeless Tobacco: Never Alcohol Use Standard Drinks/Week Comments Never 0 (1 standard drink = 0.6 oz pur e alcohol) [facility] Utilities Answer Date Recorded In the past 12 months has [employer], [employer], oil, or water [employer] threatened to shut off services in your [...] 05/28/2024 [facility] of Occupat ional [facility] - Occupational Stress Questionnaire Answer Date [...] Visit [facility] GASTROENTEROLOGY [address] [address] Robbin Escalante MD [address] [address] documented as of this encounter Visit Diagnoses Not on filedocumented in this encounter Additional Health Concerns Assessment Noted Time PHQ-2 Depression Total Score: 2 05/28/19 25 4:39 PM EDT documented as of this encounter Care Teams Monument Setter Relationship Specialty Start Date End Date Norma Friedman APRN [address] [place] G3 RAFAELA APPIAH [address] PCP - General Family Medicine 05/14/24 documented as of this encounter
--- OUTSIDE RECORDS SUMMARY | 2024-09-24 09:05 | XMS_ITS | Encounter Summary ---
Author Organization [facility] Address [address] [place] [address] Care Team Providers Care Timber Skidder Name Role Phone Elder Norma FERNÁNDEZ Primary Care Provider + [phone] Encounter Details Date Type Department Care Team (Latest Contact Info) Description 08/29/2024 Travel Social History Tobacco Use Types Packs/Day Years Used Date Smoking Tobacco: Never Smokeless Tobacco: Never Alcohol Use Standard Drinks/Week Comments Never 0 (1 standard drink = 0.6 oz pur e alcohol) [facility] Utilities Answer Date Recorded In the past 12 months has [employer] electric, gas, oil, or water company threatened [...] Not hard at all 05/28/2024 [facility] of Occupat ional Health - Occupational Stress [...] GED or equivalent No 05/28/2024 Preferred Language Cay[place] Islander 05/28/2024 PHQ-2 Answer Date Recorded Patient [...] Visit [facility] GASTROENTEROLOGY [address] [facility] [address] [place] [address] Robbin Escalante MD [address] [facility] [address] [place] [address] documented as of this encounter Visit Diagnoses Not on filedocumented in this encounter Additional Health Concerns Assessment Noted Time PHQ-2 Depression Total Score: 2 05/28/19 25 4:39 PM EDT documented as of this encounter Care Teams Timber Skidder Relationship Specialty Start Date End Date Norma Friedman APRN [address] [place] G[address] RAFAELA APPIAH [address] PCP - General Family Medicine 05/14/24 documented as of this encounter
--- OUTSIDE RECORDS SUMMARY | 2024-09-24 09:05 | XMS_ITS | Encounter Summary ---
Author Organization Healthcare Address [address] [place] [address] Care Team Providers Care Civil Laboratory Technician Name Role Phone Norma Friedman APRN Primary Care Provider [phone] Encounter Details Date Type Department Care Team (Late Contact Info) Description 07/22/2024 Community [facility] Community Practice [address] [place] [address] Sandy Cardenas MD 1700 [facility] [address] [place] [address] Social History Tobacco Use Types Packs/Day Years [...] Description 09/25/2024 2:20 PM EDT Office Visit [facility] Nephrology, Bone & Mineral Metabolism [address] [facility], [address] [place] [address] documented as of this encounter Visit Diagnoses Not on filedocumented in this encounter Care Teams Civil Laboratory Technician Relationship Specialty Start Date End Date Norma Friedman APRN [address] [place] [address] PCP - General 09/23/24 documented as of this encounter
--- OUTSIDE RECORDS SUMMARY | 2024-09-24 09:05 | XMS_ITS | Encounter Summary ---
Author Organization [facility] Address [address] [place] [id number] Care Team Providers Care Collaborating Supervising Physician Name Role Phone Unavailable Primary Care Provider Unavailabl e Encounter Details Date Type Department Care Team (Late st Contact Info) Description 09/17/2024 Telephone Medical Office Building Obstetrics and Gynecology [address] [facility], [address] [place] [address] Josefina Shay RN AMB[facility] [address] [place] [address] Social History Tobacco Use Types Packs/Day Years [...] recently had a full Nephrology work-up at [facility] that was negative and was [...] 09/25/2024 2:20 PM EDT Office Visit Professional [facility] Nephrology, Bone & Mineral Metabolism [address] [facility], [address] [place] [address] documented as of this encounter Visit Diagnoses Not on filedocumented in this encounter
--- OUTSIDE RECORDS SUMMARY | 2024-09-24 09:05 | XMS_ITS ---
Author Organization [facility] Address [address] [place] [address] Care Team Providers Care Casing Sewer Name Role Phone Norma Friedman APRN Primary Care Provider Motherhood Connection Status:Engaged (Active) Start date:05/23/2024 Enrollment date:05/23/2024 Case Team Name Relationship Phone Bindu Castellon RN Nurse Navigator Christy Zabala RN(Responsible Staff) Nurse Navig ator Continued Care and Services Coordination
--- OUTSIDE RECORDS SUMMARY | 2024-09-24 09:05 | XMS_ITS | Clinical Summary ---
Author Organization [facility] Address [address] [place] [address] Care Team Providers Care Senior Wind Energy Consultant Name Role Phone Unavailable Primary Care Provider Unavailabl e Source Comments [facility] is fully rolled out with thefollowing exceptions:General Clinical Research [facility] Social History Tobacco Use Types [...] season) 2023 AMB SEASONAL FLU VACCINE (#1) 12/07/2024 HIB IMMUNIZATION Aged Out No longer e [...]
--- OUTSIDE RECORDS SUMMARY | 2024-09-24 09:05 | XMS_ITS | Encounter Summary ---
[facility] Address [address] [place] [id number] Care Team Providers Care Records Custodian Name Role Phone Elder Norma FERNÁNDEZ Primary Care Provider + [phone] Encounter Details Date Type Department Care Team (Late st Contact Info) Description 07/07/2024 Results Follow-Up [facility] OBGYN [address] [place] [address] [place] [phone] Kelly Delgado APRN [address] [facility] [address] [place] [address] Social History Tobacco Use Types Packs/Day Years Used Date Smoking Tobacco: Never Smokeless Tobacco: Never Alcohol Use Standard Drinks/Week Comments Never 0 (1 standard drink = 0.6 oz pur e alcohol) [facility] Utilities Answer Date Recorded In the past 12 months has [employer], gas, oil, or water [employer] threatened to shut off services in your [...] and heating? Not hard at all 05/28/2024 [facility] of Occupat ional Health - [...] GED or equivalent No 05/28/2024 Preferred Language Togolese 05/28/2024 PHQ-2 Answer Date Recorded Patient Health [...] Office Visit [facility] GASTROENTEROLOGY [address] [facility] [address] [address] Robbin Escalante MD [address] [address] documented as of this encounter Visit Diagnoses Not on filedocumented in this encounter Additional Health Concerns Assessment Noted Time PHQ-2 Depression Total Score: 2 05/28/19 25 4:39 PM EDT documented as of this encounter Care Teams Records Custodian Relationship Specialty Start Date End Date Norma Friedman APRN [address] [place] G[address] RAFAELA APPIAH [address] PCP - General Family Medicine 05/14/24 documented as of this encounter
--- OUTSIDE RECORDS SUMMARY | 2024-09-24 09:05 | XMS_ITS | Encounter Summary ---
Author Organization [facility] Address [address] [place] [address] Care Team Providers Care Assembly Machine Tool Setter Name Role Phone Unavailable Primary Care Provider Unavailabl e Reason for Referral * Consultation (Routine) - Authorized Specialty Diagnoses / Procedures Referred By Contac t Referred To Contact Nephrology Diagnoses Hypokalemia Liborio Weller MD [address] [facility] [address] [place] [address] Phone: tel: fax: [facility] Nephrology, Bone & Mineral Metabolism [address] [facility], [address] [place] [address] Phone: tel: fax: Referral ID Status Reason Start Date Expiration Date Visits Requested Visits Authorized [id number] Authorized Specialty Services Required 09/14/2024 03/16/2026 1 1 Scheduling Instructions Severe hypokalemia in the setting of Encounter Details Date Type Department Care Team (Late st Contact Info) Description 09/14/2024 Telephone [facility] Obstetrics & Gynecology [address] [place] [address] Susi Wren MD [address] [place] [address] Social History Tobacco Use Types Packs/Day [...] had an outpatient workup with Nephrology at [facility] that was negative, she was not amenable [...] Description 09/25/2024 2:20 PM EDT Office Visit [facility] Nephrology, Bone & Mineral Metabolism [address] [facility], [address] [place] [address] Scheduled Referrals Name Type Priority Associated Diagnoses Order Schedule Ambulatory referral to Nephrology Clinic Outpatient Referral Routine Hypokalemia 1 Occurrences starting 09/14/2024 until 03/18/2026 documented as of this encounter Visit Diagnoses Diagnosis Hypokalemia- Primary Hypopotassemia documented in this encounter
--- OUTSIDE RECORDS SUMMARY | 2024-09-24 09:05 | XMS_ITS | Clinical Summary ---
Author Organization [employer] ([place], [place], [place], [place]) Address [address] [place] [address] Care Team Providers Care Senior Environmental Engineer Name Role Phone Unavailable Primary Care [...]
--- OUTSIDE RECORDS SUMMARY | 2024-09-24 09:05 | XMS_ITS | Encounter Summary ---
Author Organization [employer] ([place], [place], [place], [place]) Address [address] [place] [address] Care Team Providers Care National Stormwater Leader Name Role Phone Unavailable Primary Care Provider Unavailabl e Encounter Details Date Type Department Care Team (Late st Contact Info) Description 07/17/2019 Transcribed Document [facility] Family Medicine [address] [place] [address] ProviderEleno MD [address] [place], [place] [address] Social History Tobacco Use Types Packs/Day Years [...] On: 07/17/2019 19:17 EDT by KARLENE MCKINLEY hydraulic punch press operator Process Patient Disposition : AMA/Elope/LWBS KARLENE MCKINLEY [...]
--- OUTSIDE RECORDS SUMMARY | 2024-09-24 09:05 | XMS_ITS | Referral Summary ---
Author Organization [employer] ([place], [place], [place], [place]) Address [address] [place] [address] Care Team Providers Care Laborer Hoisting Name Role Phone Unavailable Primary Care Provider [...]
--- OUTSIDE RECORDS SUMMARY | 2024-09-24 09:05 | XMS_ITS | Encounter Summary ---
[facility] Address [address] [place] [address] Care Team Providers Care Electroneurodiagnostic Technologist Name Role Phone Elder Norma FERNÁNDEZ Primary Care Provider + [phone] Encounter Details Date Type Department Care Team (Latest Contact Info) Description 08/19/2024 Travel Social History Tobacco Use Types Packs/Day Years Used Date Smoking Tobacco: Never Smokeless Tobacco: Never Alcohol Use Standard Drinks/Week Comments Never 0 (1 standard drink = 0.6 oz pur e alcohol) [facility] Utilities Answer Date Recorded In the past 12 months has [employer] electric, gas, oil, or water company threatened [...] hard at all 05/28/2024 [facility] [place] of Occupat ional Health - Occupational Stress [...] GED or equivalent No 05/28/2024 Preferred Language Argentine 05/28/2024 PHQ-2 Answer Date Recorded Patient Health [...] 2:34 PM EDT Nneka Cross RN * [place] Suicide Severity Rating Scale (Screener/Recent Self-Report) Question Answer Date of Assessment Author 6. Suicidal Behavior (Lifetime) No 2:34 PM EDT Nneka Cross RN documented as of this encounter Plan of Treatment Upcoming Encounters Date Type Department Care Team (Late st Contact Info) Description 01/20/2025 3:30 PM EST Office Visit [facility] GASTROENTEROLOGY [address] [address] Robbin Escalante MD [address] [address] documented as of this encounter Visit Diagnoses Not on filedocumented in this encounter Additional Health Concerns Assessment Noted Time PHQ-2 Depression Total Score: 2 05/28/19 25 4:39 PM EDT documented as of this encounter Care Teams Electroneurodiagnostic Technologist Relationship Specialty Start Date End Date Norma Friedman APRN [address] [place] G[address] RAFAELA APPIAH [address] PCP - General Family Medicine 05/14/24 documented as of this encounter
--- OUTSIDE RECORDS SUMMARY | 2024-09-24 09:05 | XMS_ITS | Encounter Summary ---
Author Organization [facility] Address [address] [place] [address] Care Team Providers Care Service Shop Foreman Name Role Phone Ivyashlyn Norma FERNÁNDEZ Primary Care Provider + [phone] Encounter Details Date Type Department Care Team (Late st Contact Info) Description 08/27/2024 Telephone [facility] OBGYN [address] [place] [address] Staci Jain MD 1700 [facility] [address] [place] [address] Social History Tobacco Use Types Packs/Day Years Used Date Smoking Tobacco: Never Smokeless Tobacco: Never Alcohol Use Standard Drinks/Week Comments Never 0 (1 standard drink = 0.6 oz pur e alcohol) [facility] Utilities Answer Date Recorded In the past 12 months has [employer], [employer], oil, or water [employer] threatened to shut off services in your [...] at all 05/28/2024 [facility] of Occupat ional Health - Occupational Stress [...] Office Visit [facility] GASTROENTEROLOGY [address] [phone] Robbin Escalante MD [address] [address] documented as of this encounter Visit Diagnoses Diagnosis History of hypokalemia- Primary documented in this encounter Additional Health Concerns Assessment Noted Time PHQ-2 Depression Total Score: 2 05/28/19 25 4:39 PM EDT documented as of this encounter Care Teams Service Shop Foreman Relationship Specialty Start Date End Date Norma Friedman APRN [address] [place] [address] [place]FA[place] APPIA[place] [address] PCP - General Family Medicine 05/14/24 documented as of this encounter
--- OUTSIDE RECORDS SUMMARY | 2024-09-24 09:06 | XMS_ITS | Encounter Summary ---
[facility] Address [address] [place] [phone] Care Team Providers Care Agronomy Professor Name Role Phone IvyKade goldbergjoseseven JOLENE Primary Care Provider + [phone] Encounter Details Date Type Department Care Team (Late st Contact Info) Description 09/03/2024 Results Follow-Up [facility] OBGYN [address] [place] [address] Staci Jain MD [address]00 [facility] [address] [place] [address] Social History Tobacco Use Types Packs/Day Years Used Date Smoking Tobacco: Never Smokeless Tobacco: Never Alcohol Use Standard Drinks/Week Comments Never 0 (1 standard drink = 0.6 oz pur e alcohol) [facility] Utilities Answer Date Recorded In the past 12 months has [employer], gas, oil, or water [employer] threatened to shut off services in your [...] and heating? Not hard at all 05/28/2024 [facility] of Occupat ional Health - [...] Visit [facility] GASTROENTEROLOGY [address] [address] Robbin Escalante MD [address] [address] documented as of this encounter Visit Diagnoses Not on filedocumented in this encounter Additional Health Concerns Assessment Noted Time PHQ-2 Depression Total Score: 2 05/28/19 4:39 PM EDT documented as of this encounter Care Teams Agronomy Professor Relationship Specialty Start Date End Date Norma Friedman APRN [address] [place] G[address] [place]FA[place] APPIAH [address] PCP - General Family Medicine 05/14/24 documented as of this encounter
--- OUTSIDE RECORDS SUMMARY | 2024-09-24 09:06 | XMS_ITS | Encounter Summary ---
Author [facility] Address [address] [place] [id number] Care Team Providers Care Soda Drier Feeder Name Role Phone Ivyashlyn Valentinoseven JOLENE Primary Care Provider + [phone] Encounter Details Date Type Department Care Team (Late st Contact Info) Description 06/26/2024 Results Follow-Up [facility] OBGYN [address] [address] Koby Roberts MD [address] [place] [address] Social History Tobacco Use Types Packs/Day Years Used Date Smoking Tobacco: Never Smokeless Tobacco: Never Alcohol Use Standard Drinks/Week Comments Never 0 (1 standard drink = 0.6 oz pur e alcohol) [facility] Utilities Answer Date Recorded In the past 12 months has [employer], gas, oil, or water [employer] threatened to shut off services in your [...] hard at all 05/28/2024 [facility] [place] of Occupat ional Health - Occupational Stress [...] Visit [facility]ENTEROLOGY [address] [facility] [address] [address] Robbin Escalnate MD [address] [address] documented as of this encounter Visit Diagnoses Not on filedocumented in this encounter Additional Health Concerns Assessment Noted Time PHQ-2 Depression Total Score: 2 05/28/19 25 4:39 PM EDT documented as of this encounter Care Teams Soda Drier Feeder Relationship Specialty Start Date End Date Norma Friedman APRN [address] [place] [address] [place]FA[place] [address] PCP - General Family Medicine 05/14/24 documented as of this encounter
--- OUTSIDE RECORDS SUMMARY | 2024-09-24 09:06 | XMS_ITS | Encounter Summary ---
Author Organization [facility] Address [address] [place] [id number] Care Team Providers Care Advertising Teacher Name Role Phone Ivyashlyn Norma FERNÁNDEZ Primary Care Provider + [phone] Encounter Details Date Type Department Care Team (Late st Contact Info) Description 09/02/2024 Telephone [facility] OBGYN [address] [phone] Staci Jain MD [address] [place] [phone] Social History Tobacco Use Types Packs/Day Years Used Date Smoking Tobacco: Never Smokeless Tobacco: Never Alcohol Use Standard Drinks/Week Comments Never 0 (1 standard drink = 0.6 oz pur e alcohol) [facility] Utilities Answer Date Recorded In the past 12 months has iLost, gas, oil, or water [employer] threatened to shut off services in your [...] and heating? Not hard at all 05/28/2024 [facility] - [...] PM EDT She just got d/c'd from [facility] 2 hours ago and they gave her a total 10 MLE of K+ and 3 units of Mag and 2 liters of LR. She has decided to transfer care to [facility] as it iscloser to her like 15 min away. She wants you (Dr. Jain) to know this has nothing to you but rather the nurses and crime prevention police officer doctor did not relay the labs to you in a faster fashion. She said you can call her if you want and she is not angry. Dr. Jain was notified. * Telephone Encounter - Frederick Gruber RN - 09/02/2024 3:10 PM EDT Giveyt message sent to the pt regarding outpt infusion apt tomorrow at [place]. documented in this encounter Plan of Treatment Upcoming Encounters Date Type Department Care Team (Late st Contact Info) Description 01/20/2025 3:30 PM EST Office Visit [facility] [address] [place] [address] [place] [phone] Robbin Escalante MD [address] [facility] [address] [place] [address] documented as of this encounter Visit Diagnoses Not on filedocumented in this encounter Additional Health Concerns Assessment Noted Time PHQ-2 Depression Total Score: 2 05/28/19 25 4:39 PM EDT documented as of this encounter Care Teams Advertising Teacher Relationship Specialty Start Date End Date Norma Friedman APRN [address] [place] [address] [place] [address] PCP - General Family Medicine 05/14/24 documented as of this encounter
[2024-09-24 09:21] LABS: Alanine Aminotransferase 34 U/L (12-78); Albumin Level 3.3 g/dl (3.5-5.0); Albumin/Globulin Ratio 1.1 (1.1-1.8); Alkaline Phosphatase 87 U/L (38-126); Anion Gap 8.8 mEq/L (5-15); Aspartate Amino Transferase 50 U/L (14-36); Bilirubin,Total 0.6 mg/dl (0.2-1.3); Blood Urea Nitrogen 4 mg/dl (7-17); Calcium 9.0 mg/dl (8.4-10.2); Carbon Dioxide 29 mmol/L (22.0-30.0); Chloride 98 mmol/L (98-107); Creatinine,Serum 0.60 mg/dl (0.52-1.04); Estimated Glomerular Filt Rate 115 ml/min (>60); GFR (African American) 139 ML/MIN (>60); Globulin 2.9 g/dL (1.3-3.2); Glucose 76 mg/dl (74-100); Magnesium 1.2 mg/dl (1.6-2.3); Sodium 133 mmol/L (136-145); Total Protein,Serum 6.2 g/dl (6.3-8.2)
[2024-09-24 09:27] LABS: Potassium 2.8 mmoL/L (3.5-5.1)
[2024-09-24] MEDS: 0.9 % SODIUM CHLORIDE 50 ML 100 ML IV (10:05)
[2024-09-24] MEDS: MAGNESIUM SULFATE IN WATER 2 GM/50 ML PIGGYBACK IV ×2 (11:45→12:45)
[2024-09-24] MEDS: ONDANSETRON 4MG/2ML VIAL 8 MG (11:55)
== END 2024-09-24 16:32 | disposition home or self-care (01) ==
LOC: INF 08:47
PROVIDERS: PCP Nurse Practitioner Family; Visit Provider Nurse Practitioner Obstetrics & Gynecology
DX: E87.6 Hypokalemia (principal)
CPT/HCPCS: 80053; 83735; 96365; 96366; 96367; 96375; J2405; J3475; J3480

== ENCOUNTER 2024-09-26 11:09 | Outpatient (CLI) | payer OTHER, SELFPAY ==
--- OUTSIDE RECORDS SUMMARY | 2024-08-19 10:15 | XMS_ITS | Encounter Summary ---
[facility] Address [address] [place] [address] Care Team Providers Care Aircraft Refueller Name Role Phone Norma Friedman APRN Primary Care Provider + [phone] Reason for Visit * Reason Comments Routine Visit Encounter Details Date Type Department Care Team (Late st Contact Info) Description 08/19/2024 10:15 AM EDT Routine [facility] OBGYN [address] [place] [address] Jacey Mathews, EDUCATIONAL DIRECTOR [address] [place] [address] GA: 25w1d Social History Tobacco Use Types Packs/Day Years Used Date Smoking Tobacco: Never Smokeless Tobacco: Never Alcohol Use Standard Drinks/Week Comments Never 0 (1 standard drink = 0.6 oz pur e alcohol) [facility] Utilities Answer Date Recorded In the past 12 months has [employer], gas, oil, or water [employer] threatened to shut off services in your [...] and heating? Not hard at all 05/28/2024 [facility] [place] [facility] - Occupational Stress Questionnaire Answer [...] GED or equivalent No 05/28/2024 Preferred Language Croatian 05/28/2024 PHQ-2 Answer Date Recorded Patient Health [...] encounter Progress Notes * Jacey Mathews, EDUCATIONAL DIRECTOR - 08/19/2024 10:15 AM EDT Images from [...] Description 01/20/2025 3:30 PM EST Office Visit [facility] GASTROENTEROLOGY [address] [place] [address] Robbin Escalante MD [address] [place] [address] documented as of this encounter Visit Diagnoses Diagnosis Vaginal bleeding in - Primary 25 weeks gestation of documented in this encounter Additional Health Concerns Assessment Noted Time PHQ-2 Depression Total Score: 2 05/28/19 25 4:39 PM EDT documented as of this encounter Care Teams Aircraft Refueller Relationship Specialty Start Date End Date Norma Friedman APRN [address] [place] [address] [place] [address] PCP - General Family Medicine 05/14/24 documented as of this encounter
--- OUTSIDE RECORDS SUMMARY | 2024-08-19 13:59 | XMS_ITS | Encounter Summary ---
[facility] [address] [place] [id number] Care Team Providers Care Dental Internship Name Role Phone Ivyashlyn Norma FERNÁNDEZ Primary Care Provider + [phone] Reason for Visit * Reason Comments Vaginal Bleeding * Auth/Cert (Routine) Specialty Diagnoses / Procedures Referred By Contleyla t Referred To Contact Referral ID Status Reason Start Date Expiration Date Visits Re quested Visits Authorized [id number] 1 1 Encounter Details Date Type Department Care Team (Late st Contact Info) Description 08/19/2024 1:59 PM EDT - 08/20/2024 4:28 PM EDT Hospital Encounter [facility] [address] [place] [id number] Rob Wharton MD [address] [facility] [address] [place] [address] Blu Alvarado MD [address] [facility] [address] [place] [address] Dysphagia, unspecified type (Primary Dx) Discharge Disposition: Home or Self Care Social History Tobacco Use Types Packs/Day Years Used Date Smoking Tobacco: Never Smokeless Tobacco: Never Alcohol Use Standard Drinks/Week Comments Never 0 (1 standard drink = 0.6 oz pur e alcohol) [facility] Utilities Answer Date Recorded In the past 12 months has Speed Dating by [place], gas, oil, or water Tzee threatened to shut off services in your [...] Not hard at all 05/28/2024 [facility] of Occupat ional Health - Occupational Stress [...] GED or equivalent No 05/28/2024 Preferred Language Nauruan 05/28/2024 PHQ-2 Answer Date Recorded Patient Health [...] 1:23 PM EDT Polly Lacey RN * Lane Suicide Severity Rating Scale (Screener/Recent Self-Report) Question [...] Labs beginning of week and f/u with ut Seng Test Results Pending at Discharge Pending Labs Order Current Status Tissue Pathology Exam In process Rob Wharton MD 08/20/24 15:36 EDT Time: Discharge <30 min documented in this encounter Discharge Instructions * Attachments The following attachments cannot be sent through Care Everywhere. * Second Trimester of (Nauruan) * Upper Endoscopy Adult Care After (Nauruan) documented in this encounter Medications at Time [...] 08/19/2024 RH Positive 08/19/2024 ABSCRN Negative 08/19/2024 [id number] non-reactive 04/12/2024 HEPCVIRUSABY negative 04/12/2024 URINECX Final [...] IUPC: Resting Tone: Resting Tone by IUPC: [place] Units: Cervix: Exam by: Method: sterile vaginal [...] her third trimesters prior pregnancies(etiology unknown). 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 She states has never had [...] IUPC: Resting Tone: Resting Tone by IUPC: [place] Units: Laboratory Results: Lab Results (last 24 [...] AM EDTAssociated Order(s): IP CONSULT TO GASTROENTEROLOGY [facility] [place] Consult Referring Provider: Dr. [...] expresses concern regarding recent CT scan at [facility] revealing a hiatal hernia. CT scan done prior to most recent due to ovarian cyst and incidentally revealed hiatal hernia. She reports chronic gastrointestinal symptoms. Review of medical record revealed prior GI referral due to blood per rectum. She reports colonoscopy in 2020 at outside facility that revealed diverticulosis and benign colon polyp. She is currently established with provider at [facility] for gastroenterology care she reports [...] , await recommendations following EGD - consider FORENSIC SCIENCE EXAMINER evaluation if no etiology for difficulty swallowing [...] in this encounter Nursing Notes * Pilar Vreduzco RN - 08/20/2024 12:58 PM EDT heart [...] Miscellaneous Notes * BOOM Notes - Kt Fna DO - 08/19/2024 2:58 PM EDT Images [...] her third trimesters prior pregnancies(etiology unknown). 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 She states has never had [...] IUPC: Resting Tone: Resting Tone by IUPC: [place] Units: Laboratory Results: Lab Results (last 24 [...] Description 01/20/2025 3:30 PM EST Office Visit [facility] [address] [phone] Robbin Escalante MD [address] [address] documented as of this encounter Procedures Procedure Name Priority Date/Time Associated Diagnosis Comments TISSUE PATHOLOGY EXAM Routine 08/20/2024 1:55 PM EDT Dysphagia, unspecified type OR ESOPHAGOGASTRODUODENOSCOP Y TRANSORAL DIAGNOSTIC 08/20/2024 1:44 PM EDT Dysphagia, unspecified type UPPER GI ENDOSCOPY 08/20/2024 1:09 PM EDT BASIC METABOLIC PANEL STAT 08/20/2024 5:25 AM EDT POTASSIUM STAT 08/19/2024 8:53 PM EDT ABORH 2ND SPECIMEN VERIFICATION STAT 08/19/2024 4:34 PM EDT NONSTRESS TEST Routine 08/19/2024 4:17 PM EDT [facility] Routine 08/19/2024 3:25 PM [...] EDT) Case Report Surgical Pathology Report Case: [id number] Authorizing Provider: Blu Alvarado MD Collected: 08/20/2024 01:55 PM Ordering Location: [facility] Received: 08/20/2024 02:14 PM ENDO SUITES Pathologist: Khalida Rhoades DO Specimen: Gastric, Antrum, antrum bx for path 08/22/2024 9:18 AM EDT [facility] Clinical Information Dysphagia, unspecified type 08/22/2024 9:18 AM EDT [facility] Final Diagnosis Stomach, antrum, biopsy: 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 pylori is negative (no organisms are identified) Negative for intestinal metaplasia, dysplasia, or malignancy 08/22/2024 9:18 AM EDT [facility] at 0918 EDT Gross Description 1. Gastric, Antrum. Received in formalin labeled antrum biopsy is a 0.4 x 0.2 x 0.2 cm pink-see soft tissue fragment submitted entirely in a single cassette. HDM 08/22/2024 9:18 AM EDT [facility] Microscopic Description The slides are reviewed and demonstrate histopathologic features supporting the above rendered diagnosis. 08/22/2024 9:18 AM EDT [facility] Tissue Pyloric antrum structure / Unknown 08/20/2024 1:55 PM EDT 08/20/2024 2:14 PM EDT us Blu Alvarado MD PATHOLOGY/CYTOLOGY ORDERABLES Final Result [facility]
[address] [place] [address], * Upper GI Endoscopy (08/20/2024 1:09 PM EDT) us Blu Alvarado MD INTERFACE NEEDS Final Result * (ABNORMAL) Basic Metabolic Panel (08/20/2024 5:25 AM EDT) Glucose 84 65 - 99 mg/dL 08/20/2024 6:13 AM EDT [facility] BUN 2.3(L) 6.0 - 20.0 mg/dL 08/20/2024 6:13 AM EDT [facility] Creatinine 0.51(L) 0.57 - 1.00 mg/dL 08/20/2024 6:13 AM EDT [facility] Sodium 139 136 - 145 mmol/L 08/20/2024 6:13 AM EDT [facility] Potassium 3.5 3.5 - 5.2 mmol/L 08/20/2024 6:13 AM EDT [facility] Chloride 109(H) 98 - 107 mmol/L 08/20/2024 6:13 AM EDT [facility] CO2 23.5 22.0 - 29.0 mmol/L 08/20/2024 6:13 AM EDT [facility] Calcium 7.8(L) 8.6 - 10.5 mg/dL 08/20/2024 6:13 AM EDT [facility] BUN/Creatinine Ratio 4.5(L) 7.0 - 25.0 08/20/2024 6:13 AM EDT [facility] Anion Gap 6.5 5.0 - 15.0 mmol/L 08/20/2024 6:13 AM T [facility] eGFR 126.6 >60.0 mL/min/1.7 3 08/20/2024 6:13 AM T [facility] Blood Venipuncture / Unknown 08/20/2024 5:25 AM EDT 08/20/2024 5:46 AM EDT [facility] - 08/20/2024 6:13 AM EDT [...] ORDERABLES Final Resu lt Performing Organization Address City/[facility]/ZIP Co de Phone Number [facility]
[address] [place] [address], * (ABNORMAL) Potassium (08/19/2024 8:53 PM EDT) Potassium 2.7(L) 3.5 - 5.2 mmol/L 08/19/2024 9:20 PM EDT [facility] Blood Venipuncture / Unknown 08/19/2024 8:53 PM EDT 08/19/2024 9:04 PM EDT Kt Fan DO LAB BLOOD ORDERABLES Final Result Performing Organization Address [facility] Co de Phone Number [facility]
[address] [place] [address], * ABO RH Specimen Verification (08/19/2024 4:34 PM EDT) ABO Type O 08/19/2024 7:39 PM EDT [facility] RH type Positive 08/19/2024 7:39 PM EDT [facility] Blood Venipuncture / Unknown 08/19/2024 4:34 PM EDT 08/19/2024 4:53 PM EDT Rob Wharton MD BLOOD BANK TEST ORDER FRANCO Final Result Performing Organization Address City/[facility]/ZIP Co de Phone Number [facility]
[address] [place] [address], * [facility] (08/19/2024 3:25 PM EDT) Anatomical Region Laterality Modality Ultrasound 08/19/2024 3:09 PM EDT Narrative 08/19/2024 4:54 PM EDT PAT NAME: CAROLE GIRARD MED REC#: [id number] DA: 1990 PAT GEND: F PAT TYPE: E EXAM TRAVIS: [id number] REF PHYS ROB WHARTON Comparison Studies The [...] EFW (oz) 9 oz EFW by: Hadlock ([id number]) Extended Cav. septi pel. tr 4.7 mm Financial Investment Adviser 3.8 mm CM 7.5 mm 84% Nicolaides [...] Heart / Thorax 3-vessel view: Appears normal 2-owiisq-rtiznik view: Appears normal Stomach: Appears normal Kidneys: [...] in 4wks for growth. Coding ======= Description: 97667-32 Follow Up Site Supervisor: RT Annetta Hartmann , [facility] Physician: Jo Chappell MD Electronically signed by: Jo Chappell MD at: 16:54 Procedure Note Jo Chappell MD - 08/19/2024 PAT NAME: CAROLE GIRARD MED REC#: [id number] DA: 1990 PAT GEND: F PAT TYPE: E EXAM TRAVIS: [id number] REF PHYS ROB WHARTON Comparison Studies The findings of this study are compared to the prior ultrasound studydated 07/22/24 Patient Status Inpatient Indication ======== History of c/s x1. History of . Vaginal bleeding. Maternal Assessment Qgfylm546 cm Height (ft)5 ft Height (in)4 in Jyiwwr56 kg Weight (lb)158 lb BMI27.31 kg/m Method ======= Transabdominal ultrasound examination. View: Limited by patient bodyhabitus ========= Love . Number of fetuses: 1 Dating ====== Method of dating:based on stated DUSTY GA by prior zyppdnblpc40 w + 1 d DUSTY by prior [...] Hadlock Femur44.9 mm 24w 6d 27% Hadlock Hndlvsj83.3 mm 25w 3d 50% Jamal HC / AC1.16 MIA976 g 24w 2d 16% Hadlock EFW (lb)1 lb EFW (oz)9 oz EFW by:Hadlock ([id number]) Extended Cav. septi pel. tr4.7 mm Vp3.8 mm CM7.5 mm 84% Nicolaides Head / Face / Neck Cephalic index0.71 <1% Nicolaides Extremities / Bony Struc FL / BPD0.78 FL / HC0.20 FL / AC0.23 Other Structures LOX900 bpm General Evaluation Cardiac activity present. FHR [...] normal Heart / Thorax 3-vessel view:Appears normal 2-tekvou-dgyscok view:Appears normal Stomach:Appears normal Kidneys:Appears normal Bladder:Appears normal Gender:female Wants to know gender:yes Maternal Structures Uterus / Cervix Cervix:Visualized Approach:Transabdominal Cervical oycyay13.9 mm Doppler Arterial Umbilical A PI1.01 32% Colt Umbilical A RI0.65 28% Colt Umbilical A PS25.46 cm/s <1% Ebbing Umbilical A ED8.82 cm/s Umbilical A TAmax16.45 cm/s <1% Ebbing Umbilical A MD8.47 cm/s Umbilical A S / D2.89 24% Colt Umbilical A HR128 bpm Impression Carole presented to [facility] today with complaints of vaginal bleeding. On [...] office in 4wks for growth. Coding ======= Description:[id number] Follow Up Site Supervisor: RT Annetta Hartmann , RDMS Physician: Jo Chappell MD Electronically signed by: Jo Chappell MD at: 16:54 us Kt Fan DO G US ORDERABLES Final Res ult * Protein / Creatinine Ratio, Urine - Urine, Clean Catch (08/19/2024 3:02 PM EDT) Protein/Creati nine Ratio, Urine 126.1 0.0 - 200.0 mg/G Crea 08/20/2024 12:47 AM EDT [facility] Creatinine, Urine 148.3 mg/dL 08/20/2024 12:47 AM EDT [facility] Total Protein, Urine 18.7 mg/dL 08/20/2024 12:47 AM EDT [facility] Urine Urine specimen obtained by clean catch procedure / Unknown Collection / Unknown 08/19/2024 3:02 PM EDT 08/19/2024 4:26 PM EDT Kt Fan URINE ORDERABLES Final Resu lt [facility]
[address] [place] [address], [place] [phone] * (ABNORMAL) Magnesium (08/19/2024 3:02 PM EDT) Magnesium 1.5(L) 1.6 - 2.6 mg/dL 08/19/2024 5:12 PM EDT [facility] Blood Line / Unknown 08/19/2024 3: 02 PM EDT 08/19/2024 3:10 PM EDT Kt Fan DO LAB BLOOD ORDERABLES Final Result [facility]
[address] [place] [address], [place] [phone] * Urinalysis, Microscopic Only - Urine, Clean Catch (08/19/2024 3:02 PM EDT) RBC, UA 0-2 None Seen, 0-2 /HPF 08/19/2024 3:33 PM EDT [facility] WBC, UA 0-2 None Seen, 0-2 /HPF 08/19/2024 3:33 PM EDT [facility] Bacteria, UA None Seen None Seen /HPF 08/19/2024 3:33 PM EDT [facility] Squamous Epithelial Cells, UA 0-2 None Seen, 0-2 /HPF 08/19/2024 3:33 PM EDT [facility] Hyaline Casts, UA None Seen None Seen /LPF 08/19/2024 3:33 PM EDT [facility] Methodology Automated Microscopy 08/19/2024 3:33 PM EDT [facility] Urine Urine specimen obtained by clean catch procedure / Unknown Collection / Unknown 08/19/2024 3:02 PM EDT 08/19/2024 3:13 PM EDT us Kt Fan DO URINE ORDERABLES Final Resu lt [facility]
[address] [place] [address], * (ABNORMAL) CBC Auto Differential (08/19/2024 3:02 PM EDT) WBC 9.19 3.40 - 10.80 10*3/mm3 08/19/2024 3:23 PM EDT [facility] RBC 3.58(L) 3.77 - 5.28 10*6/mm3 08/19/2024 3:23 PM EDT [facility] Hemoglobin 10.5(L) 12.0 - 15.9 g/dL 08/19/2024 3:23 PM EDT [facility] Hematocrit 31.4(L) 34.0 - 46.6 % 08/19/2024 3:23 PM EDT [facility] MCV 87.7 79.0 - 97.0 fL 08/19/2024 3:23 PM EDT [facility] MCH 29.3 26.6 - 33.0 pg 08/19/2024 3:23 PM EDT [facility] MCHC 33.4 31.5 - 35.7 g/dL 08/19/2024 3:23 PM EDT [facility] RDW 13.4 12.3 - 15.4 % 08/19/2024 3:23 PM EDT [facility] RDW-SD 42.4 37.0 - 54.0 fl 08/19/2024 3:23 PM EDT [facility] MPV 12.0 6.0 - 12.0 fL 08/19/2024 3:23 PM EDT [facility] Platelets 241 140 - 450 10*3/mm3 08/19/2024 3:23 PM EDT [facility] Neutrophil % 66.8 42.7 - 76.0 % 08/19/2024 3:23 PM EDT [facility] Lymphocyte % 24.4 19.6 - 45.3 % 08/19/2024 3:[facility] Monocyte % 7.6 5.0 - 12.0 % 08/19/2024 3:23 PM [facility] Eosinophil % 0.7 0.3 - 6.2 % 08/19/2024 3:23 PM [facility] Basophil % 0.2 0.0 - 1.5 % 08/19/2024 3:23 PM [facility] Immature Grans % 0.3 0.0 - 0.5 % 08/19/2024 3:23 PM [facility] Neutrophils, Absolute 6.14 1.70 - 7.00 10*3/mm3 08/19/2024 3:23 PM [facility] Lymphocytes, Absolute 2.24 0.70 - 3.10 10*3/mm3 08/19/2024 3:23 PM EDT [facility] Monocytes, Absolute 0.70 0.10 - 0.90 10*3/mm3 08/19/2024 3:23 PM EDT [facility] Eosinophils, Absolute 0.06 0.00 - 0.40 10*3/mm3 08/19/2024 3:23 PM [facility] Basophils, Absolute 0.02 0.00 - 0.20 10*3/mm3 08/19/2024 3:23 PM EDT [facility] Immature Grans, Absolute 0.03 0.00 - 0.05 10*3/mm3 08/19/2024 3:23 PM EDT [facility] nRBC 0.0 0.0 - 0.2 /100 WBC 08/19/2024 3:23 PM EDT [facility] Blood Line / Unknown 08/19/2024 3: 02 PM EDT 08/19/2024 3:10 PM EDT Kt Fan DO LAB BLOOD ORDERABLES Final Result [facility]
[address] [place] [address], * (ABNORMAL) Urinalysis With Microscopic If Indicated (No Culture) - Urine, Clean Catch (08/19/2024 3:02 PM EDT) Color, UA Yellow Yellow, Straw 08/19/2024 3:33 PM EDT [facility] Appearance, UA Clear Clear 08/19/2024 3:33 PM EDT [facility] pH, UA >=9.0(H) 5.0 - 8.0 08/19/2024 3:33 PM EDT [facility] Specific [place], UA 1.018 1.005 - 1.030 08/19/2024 3:33 PM EDT [facility] Glucose, UA Negative Negative 08/19/2024 3:33 PM EDT [facility] Ketones, UA 15 mg/dL (1+)(A) Negative 08/19/2024 3:33 PM EDT [facility] Bilirubin, UA Negative Negative 08/19/2024 3:33 PM EDT [facility] Blood, UA Negative Negative 08/19/2024 3:33 PM EDT [facility] Protein, UA 30 mg/dL (1+)(A) Negative 08/19/2024 3:33 PM EDT [facility] Leuk Esterase, UA Negative Negative 08/19/2024 3:33 PM EDT [facility] Nitrite, UA Negative Negative 08/19/2024 3:33 PM EDT [facility] Urobilinogen, UA 1.0 E.U./dL 0.2 - 1.0 E.U./dL 08/19/2024 3:33 PM EDT [facility] Urine Urine specimen obtained by clean catch procedure / Unknown Collection / Unknown 08/19/2024 3:02 PM EDT 08/19/2024 3:13 PM EDT us Kt Fan DO URINE ORDERABLES Final Resu lt Performing Organization Address City/[facility]/ZIP Co de Phone Number [facility]
[address] [place] [address], [place] [phone] * Amylase (08/19/2024 3:02 PM EDT) Amylase 73 28 - 100 U/L 08/19/2024 3:36 PM EDT [facility] Blood Line / Unknown 08/19/2024 3: 02 PM EDT 08/19/2024 3:10 PM EDT us Kt Fan DO LAB BLOOD ORDERABLES Final Result Performing Organization Address [facility] Co de Phone Number [facility]
[address] [place] [address], [place] [phone] * Lipase (08/19/2024 3:02 PM EDT) Lipase 13 13 - 60 U/L 08/19/2024 3:36 PM EDT [facility] Blood Line / Unknown 08/19/2024 3: 02 PM EDT 08/19/2024 3:10 PM EDT us Kt Fan DO LAB BLOOD ORDERABLES Final Result Performing Organization Address City/[facility]/ZIP Co de Phone Number [facility]
[address] [place] [address], * (ABNORMAL) Comprehensive Metabolic Panel (08/19/2024 3:02 PM EDT) [facility] Glucose 75 65 - 99 mg/dL 08/19/2024 3:38 PM EDT [facility] BUN 3.6(L) 6.0 - 20.0 mg/dL 08/19/2024 3:38 PM EDT [facility] Creatinine 0.51(L) 0.57 - 1.00 mg/dL 08/19/2024 3:38 PM EDT [facility] Sodium 137 136 - 145 mmol/L 08/19/2024 3:38 PM EDT [facility] Potassium 2.6(LL) 3.5 - 5.2 mmol/L 08/19/2024 3:38 PM EDT [facility] Comment:Specimen hemolyzed. Result may be falsely elevated. Chloride 99 98 - 107 mmol/L 08/19/2024 3:38 PM EDT [facility] CO2 24.2 22.0 - 29.0 mmol/L 08/19/2024 3:38 PM EDT [facility] Calcium 8.8 8.6 - 10.5 mg/dL 08/19/2024 3:38 PM EDT [facility] Total Protein 6.6 6.0 - 8.5 g/dL 08/19/2024 3:38 PM EDT [facility] Albumin 3.4(L) 3.5 - 5.2 g/dL 08/19/2024 3:38 PM EDT [facility] ALT (SGPT) 10 1 - 33 U/L 08/19/2024 3:38 PM EDT [facility] AST (SGOT) 22 1 - 32 U/L 08/19/2024 3:38 PM EDT [facility] Alkaline Phosphatase 64 39 - 117 U/L 08/19/2024 3:38 PM EDT [facility] Total Bilirubin 0.5 0.0 - 1.2 mg/dL 08/19/2024 3:38 PM EDT [facility] Globulin 3.2 gm/dL 08/19/2024 3:38 PM EDT [facility] Comment:Calculated Result A/G Ratio 1.1 g/dL 08/19/2024 3:38 PM EDT [facility] BUN/Creatinine Ratio 7.1 7.0 - 25.0 08/19/2024 3:38 PM EDT [facility] Anion Gap 13.8 5.0 - 15.0 mmol/L 08/19/2024 3:38 PM EDT [facility] eGFR 126.6 >60.0 mL/min/1.7 3 08/19/2024 3:38 PM EDT [facility] Blood Line / Unknown 08/19/2024 3: 02 PM EDT 08/19/2024 3:10 PM EDT Narrative [facility] - 08/19/2024 3:38 PM EDT GFR [...] Fan DO LAB BLOOD ORDERABLES Final Result [facility]
[address] [place] [address], * Type & Screen (08/19/2024 3:02 PM EDT) ABO Type O 08/19/2024 3:51 PM EDT [facility] RH type Positive 08/19/2024 3:51 PM EDT [facility] Antibody Screen Negative 08/19/2024 3:51 PM EDT [facility] T&S Expiration Date 08/22/2024 11:59:59 PM 08/19/2024 3:51 PM EDT [facility] Blood Line / Unknown 08/19/2024 3: 02 PM EDT 08/19/2024 3:15 PM EDT Kt Fan DO BLOOD BANK TEST ORDERABLES Edited Result - Final [facility]
[address] [place] [address], documented in this encounter Visit Diagnoses Diagnosis [...] day 2151 (New Bag - Provider: Yun Nicloe, RN) 0438 (New Bag - Provider: Yun [...] documented as of this encounter Care Teams Dental Internship Relationship Specialty Start Date End Date Norma Friedman APRN [address] [place] G3 RAFAELA APPIAH [id number] PCP - General Family Medicine 05/14/24 documented as of this encounter
--- OUTSIDE RECORDS SUMMARY | 2024-08-20 13:33 | XMS_ITS | Encounter Summary ---
[facility] Address [address] [place] [address] Care Team Providers Care Box Finisher Name Role Phone Norma Friedman APRN Primary Care Provider + [phone] Reason for Visit * Reason Comments Vaginal Bleeding * Auth/Cert (Routine) Specialty Diagnoses / Procedures Referred By Tarik t Referred To Contact Referral ID Status Reason Start Date Expiration Date Visits Re quested Visits Authorized [id number] 1 1 Encounter Details Date Type Department Care Team (Late st Contact Info) Description 08/20/2024 1:33 PM EDT - 08/20/2024 2:05 PM EDT Surgery [facility] [address] [place] [address] Blu Alvarado MD [address] [facility] [address] [place] [address] ESOPHAGOGASTRODUODENOSCOPY [35456 (CPT )] Social History Tobacco Use Types Packs/Day Years Used Date Smoking Tobacco: Never Smokeless Tobacco: Never Alcohol Use Standard Drinks/Week Comments Never 0 (1 standard drink = 0.6 oz pur e alcohol) [facility] Utilities Answer Date Recorded In [...] Not hard at all 05/28/2024 [facility] - Occupational Stress Questionnaire Answer Date [...] GED or equivalent No 05/28/2024 Preferred Language Greek 05/28/2024 PHQ-2 Answer Date Recorded Patient Health [...] 1:23 PM EDT Polly Lacey RN * [place] Suicide Severity Rating Scale (Screener/Recent Self-Report) Question [...] Labs [facility] Results Pending at Discharge Pending Labs Order Current Status Tissue Pathology Exam In process Rob Wharton MD 08/20/24 15:36 EDT Time: Discharge <30 min documented in this encounter Discharge Instructions * Attachments The following attachments cannot be sent through Care Everywhere. * Second Trimester of (Greek) * Upper Endoscopy Adult Care After (Greek) documented in this encounter Medications at Time [...] 08/19/2024 RH Positive 08/19/2024 ABSCRN Negative 08/19/2024 [id number] non-reactive 04/12/2024 HEPCVIRUSABY negative 04/12/2024 URINECX Final [...] IUPC: Resting Tone: Resting Tone by IUPC: [place] Units: Cervix: Exam by: Method: sterile vaginal [...] her third trimesters prior pregnancies(etiology unknown). 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 She states has never had [...] IUPC: Resting Tone: Resting Tone by IUPC: [place] Units: Laboratory Results: Lab Results (last 24 [...] AM EDTAssociated Order(s): IP CONSULT TO GASTROENTEROLOGY [facility] Gastroenterology Consult Referring Provider: Dr. Fan/Dr. Wharton [...] , await recommendations following EGD - consider BIG DATA ADMIN evaluation if no etiology for difficulty swallowing [...] her third trimesters prior pregnancies(etiology unknown). 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 She states has never had [...] ECTOPIC Comments: D&C 4 Term 04/21/16 F JAGIDSH 3 06/19/14 35w0d M CS-Unspec JAGDISH Comments: [...] IUPC: Resting Tone: Resting Tone by IUPC: [place] Units: Laboratory Results: Lab Results (last 24 [...] Description 01/20/2025 3:30 PM EST Office Visit [facility] [address] [phone] Robbin Escalante MD [address] [address] documented as of this encounter Procedures Procedure Name Priority Date/Time Associated Diagnosis Comments TISSUE PATHOLOGY EXAM Routine 08/20/2024 1:55 PM EDT Dysphagia, unspecified type PA ESOPHAGOGASTRODUODENOSCOP Y TRANSORAL DIAGNOSTIC 08/20/2024 1:44 PM EDT Dysphagia, unspecified type UPPER GI ENDOSCOPY 08/20/2024 1:09 PM EDT BASIC METABOLIC PANEL STAT 08/20/2024 5:25 AM EDT POTASSIUM STAT 08/19/2024 8:53 PM EDT ABORH 2ND SPECIMEN VERIFICATION STAT 08/19/2024 4:34 PM EDT NONSTRESS TEST Routine 08/19/2024 4:[address] [facility] Routine 08/19/2024 3:25 PM EDT [...] EDT) Case Report Surgical Pathology Report Case: [id number] Authorizing Provider: Blu Alvarado MD Collected: 08/20/2024 01:55 PM Ordering Location: [facility] Received: 08/20/2024 02:14 PM ENDO SUITES Pathologist: Khalida Rhoades DO Specimen: Gastric, Antrum, antrum bx for path 08/22/2024 9:18 AM EDT [facility] Clinical Information Dysphagia, unspecified type 08/22/2024 9:18 AM EDT [facility] Final Diagnosis Stomach, antrum, biopsy: 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 pylori is negative (no organisms are identified) Negative for intestinal metaplasia, dysplasia, or malignancy 08/22/2024 9:18 AM EDT [facility] at 0918 EDT Gross Description 1. Gastric, Antrum. Received in formalin labeled antrum biopsy is a 0.4 x 0.2 x 0.2 cm pink-see soft tissue fragment submitted entirely in a single cassette. HDM 08/22/2024 9:18 AM EDT [facility] Microscopic Description The slides are reviewed and demonstrate histopathologic features supporting the above rendered diagnosis. 08/22/2024 9:18 AM EDT [facility] Tissue Pyloric antrum structure / Unknown 08/20/2024 1:55 PM EDT 08/20/2024 2:14 PM EDT us Blu Alvarado MD PATHOLOGY/CYTOLOGY ORDERABLES Final Result [facility]
[address] [place] [address], * Upper GI Endoscopy (08/20/2024 1:09 PM EDT) us Blu Alvarado MD INTERFACE NEEDS Final Result * (ABNORMAL) Basic Metabolic Panel (08/20/2024 5:25 AM EDT) Glucose 84 65 - 99 mg/dL 08/20/2024 6:13 AM EDT [facility] BUN 2.3(L) 6.0 - 20.0 mg/dL 08/20/2024 6:13 AM T [facility] Creatinine 0.51(L) 0.57 - 1.00 mg/dL 08/20/2024 6:13 AM [facility] Sodium 139 136 - 145 mmol/L 08/20/2024 6:13 AM EDT [facility] Potassium 3.5 3.5 - 5.2 mmol/L 08/20/2024 6:13 AM EDT [facility] Chloride 109(H) 98 - 107 mmol/L 08/20/2024 6:13 AM [facility] CO2 23.5 22.0 - 29.0 mmol/L 08/20/2024 6:13 AM [facility] Calcium 7.8(L) 8.6 - 10.5 mg/dL 08/20/2024 6:13 AM [facility] BUN/Creatinine Ratio 4.5(L) 7.0 - 25.0 08/20/2024 6:13 AM [facility] Anion Gap 6.5 5.0 - 15.0 mmol/L 08/20/2024 6:13 AM [facility] eGFR 126.6 >60.0 mL/min/1.7 3 08/20/2024 6:13 AM [facility] Blood Venipuncture / Unknown 08/20/2024 5:25 AM EDT 08/20/2024 5:46 AM T [facility] - 08/20/2024 6:13 AM EDT [...] ORDERABLES Final Resu lt Performing Organization Address City/[facility]/ZIP Co de Phone Number [facility]
[address] [place] [address], * (ABNORMAL) Potassium (08/19/2024 8:53 PM EDT) Potassium 2.7(L) 3.5 - 5.2 mmol/L 08/19/2024 9:20 PM EDT [facility] Blood Venipuncture / Unknown 08/19/2024 8:53 PM EDT 08/19/2024 9:04 PM EDT Kt Fna DO LAB BLOOD ORDERABLES Final Result Performing Organization Address [facility] Co de Phone Number [facility]
[address] [place] [address], * ABO RH Specimen Verification (08/19/2024 4:34 PM EDT) ABO Type O 08/19/2024 7:39 PM EDT [facility] RH type Positive 08/19/2024 7:39 PM EDT [facility] Blood Venipuncture / Unknown 08/19/2024 4:34 PM EDT 08/19/2024 4:53 PM EDT Rob Wharton MD BLOOD BANK TEST ORDER FRANCO Final Result Performing Organization Address City/[facility]/ZIP Co de Phone Number [facility]
[address] [place] [address], * [facility] (08/19/2024 3:25 PM EDT) Anatomical Region Laterality Modality Ultrasound 08/19/2024 3:09 PM EDT Narrative 08/19/2024 4:54 PM EDT PAT NAME: CAROLE GIRARD MED REC#: [id number] DA: 1990 PAT GEND: F PAT TYPE: E EXAM TRAVIS: [id number] REF PHYS ROB WHARTON Comparison Studies The [...] EFW (oz) 9 oz EFW by: Hadlock ([id number]) Extended Cav. septi pel. tr 4.7 mm Registered Midwife 3.8 mm CM 7.5 mm 84% Nicolaides [...] Heart / Thorax 3-vessel view: Appears normal 7-hepvhk-nwcvakw view: Appears normal Stomach: Appears normal Kidneys: [...] in 4wks for growth. Coding ======= Description: 75391-61 Follow Up Ball Mill Operator: Alison Verduzco RT R , [place] Physician: Jo Chappell MD Electronically signed by: Jo Chappell MD at: 16:54 Procedure Note Jo Chappell MD - 08/19/2024 PAT NAME: CAROLE GIRARD MED REC#: [id number] DA: [id number] PAT GEND: F PAT TYPE: E EXAM TRAVIS: [id number] REF PHYS ROB WHARTON Comparison Studies The findings of this study are compared to the prior ultrasound studydated 07/22/24 Patient Status Inpatient Indication ======== History of c/s x1. History of . Vaginal bleeding. Maternal Assessment Pzoxhe053 cm Height (ft)5 ft Height (in)4 in Naaxxc29 kg Weight (lb)158 lb BMI27.31 kg/m Method ======= Transabdominal ultrasound examination. View: Limited by patient bodyhabitus ========= Love . Number of fetuses: 1 Dating ====== Method of dating:based on stated DUSTY GA by prior [id number] w + 1 d DUSTY by prior [...] Hadlock Femur44.9 mm 24w 6d 27% Hadlock Ccfbuno49.3 mm 25w 3d 50% Jamal HC / AC1.16 DBC799 g 24w 2d 16% Hadlock EFW (lb)1 lb EFW (oz)9 oz EFW by:Hadlock ([id number]) Extended Cav. septi pel. tr4.7 mm Vp3.8 mm CM7.5 mm 84% Nicolaides Head / Face / Neck Cephalic index0.71 <1% Nicolaides Extremities / Bony Struc FL / BPD0.78 FL / HC0.20 FL / AC0.23 Other Structures CZA222 bpm General Evaluation Cardiac activity present. FHR [...] normal Heart / Thorax 3-vessel view:Appears normal 8-szabyo-xndlcve view:Appears normal Stomach:Appears normal Kidneys:Appears normal Bladder:Appears normal Gender:female Wants to know gender:yes Maternal Structures Uterus / Cervix Cervix:Visualized Approach:Transabdominal Cervical reakxy04.9 mm Doppler Arterial Umbilical A PI1.01 32% [...] office in 4wks for growth. Coding ======= Description:56502-62 Follow Up Ball Mill Operator: RT Annetta Hartmann , [facility] Physician: Jo Chappell MD Electronically signed by: Jo Chappell MD at: 16:54 us Kt Fan DO [facility] US ORDERABLES Final Res ult * Protein / Creatinine Ratio, Urine - Urine, Clean Catch (08/19/2024 3:02 PM EDT) Protein/Creati nine Ratio, Urine 126.1 0.0 - 200.0 mg/G Crea 08/20/2024 12:47 AM EDT [facility] Creatinine, Urine 148.3 mg/dL 08/20/2024 12:47 AM EDT [facility] Total Protein, Urine 18.7 mg/dL 08/20/2024 12:47 AM EDT [facility] Urine Urine specimen obtained by clean catch procedure / Unknown Collection / Unknown 08/19/2024 3:02 PM EDT 08/19/2024 4:26 PM EDT Kt Fan DO URINE ORDERABLES Final Resu lt [facility]
[address] [place] [address], [place] [phone] * (ABNORMAL) Magnesium (08/19/2024 3:02 PM EDT) Magnesium 1.5(L) 1.6 - 2.6 mg/dL 08/19/2024 5:12 PM EDT [facility] Blood Line / Unknown 08/19/2024 3: 02 PM EDT 08/19/2024 3:10 PM EDT Kt Fan DO LAB BLOOD ORDERABLES Final Result Performing Organization Address City/[facility]/ZIP Co de Phone Number [facility]
[address] [place] [address], [place] [phone] * Urinalysis, Microscopic Only - Urine, Clean Catch (08/19/2024 3:02 PM EDT) RBC, UA 0-2 None Seen, 0-2 /HPF 08/19/2024 3:33 PM EDT [facility] WBC, UA 0-2 None Seen, 0-2 /HPF 08/19/2024 3:33 PM EDT [facility] Bacteria, UA None Seen None Seen /HPF 08/19/2024 3:33 PM EDT [facility] Squamous Epithelial Cells, UA 0-2 None Seen, 0-2 /HPF 08/19/2024 3:33 PM EDT [facility] Hyaline Casts, UA None Seen None Seen /LPF 08/19/2024 3:33 PM EDT [facility] Methodology Automated Microscopy 08/19/2024 3:33 PM EDT [facility] Urine Urine specimen obtained by clean catch procedure / Unknown Collection / Unknown 08/19/2024 3:02 PM EDT 08/19/2024 3:13 PM EDT Kt Fan DO URINE ORDERABLES Final Resu lt [facility]
[address] [place] [address], * (ABNORMAL) CBC Auto Differential (08/19/2024 3:02 PM EDT) WBC 9.19 3.40 - 10.80 10*3/mm3 08/19/2024 3:23 PM EDT [facility] RBC 3.58(L) 3.77 - 5.28 10*6/mm3 08/19/2024 3:23 PM EDT [facility] Hemoglobin 10.5(L) 12.0 - 15.9 g/dL 08/19/2024 3:23 PM EDT [facility] Hematocrit 31.4(L) 34.0 - 46.6 % 08/19/2024 3:23 PM EDT [facility] MCV 87.7 79.0 - 97.0 fL 08/19/2024 3:23 PM EDT [facility] MCH 29.3 26.6 - 33.0 pg 08/19/2024 3:23 PM EDT [facility] MCHC 33.4 31.5 - 35.7 g/dL 08/19/2024 3:23 PM EDT [facility] RDW 13.4 12.3 - 15.4 % 08/19/2024 3:23 PM EDT [facility] RDW-SD 42.4 37.0 - 54.0 fl 08/19/2024 3:23 PM EDT [facility] MPV 12.0 6.0 - 12.0 fL 08/19/2024 3:23 PM EDT [facility] Platelets 241 140 - 450 10*3/mm3 08/19/2024 3:23 PM EDT [facility] Neutrophil % 66.8 42.7 - 76.0 % 08/19/2024 3:23 PM EDT [facility] Lymphocyte % 24.4 19.6 - 45.3 % 08/19/2024 3:23 PM EDT [facility] Monocyte % 7.6 5.0 - 12.0 % 08/19/2024 3:23 PM EDT [facility] Eosinophil % 0.7 0.3 - 6.2 % 08/19/2024 3:23 PM EDT [facility] Basophil % 0.2 0.0 - 1.5 % 08/19/2024 3:23 PM EDT [facility] Immature Grans % 0.3 0.0 - 0.5 % 08/19/2024 3:23 PM EDT [facility] Neutrophils, Absolute 6.14 1.70 - 7.00 10*3/mm3 08/19/2024 3:23 PM EDT [facility] Lymphocytes, Absolute 2.24 0.70 - 3.10 10*3/mm3 08/19/2024 3:23 PM EDT [facility] Monocytes, Absolute 0.70 0.10 - 0.90 10*3/mm3 08/19/2024 3:23 PM EDT [facility] Eosinophils, Absolute 0.06 0.00 - 0.40 10*3/mm3 08/19/2024 3:23 PM EDT [facility] Basophils, Absolute 0.02 0.00 - 0.20 10*3/mm3 08/19/2024 3:23 PM EDT [facility] Immature Grans, Absolute 0.03 0.00 - 0.05 10*3/mm3 08/19/2024 3:23 PM EDT [facility] nRBC 0.0 0.0 - 0.2 /100 WBC 08/19/2024 3:23 PM EDT [facility] Blood Line / Unknown 08/19/2024 3: 02 PM EDT 08/19/2024 3:10 PM EDT Kt Fan DO LAB BLOOD ORDERABLES Final Result [facility]
[address] [place] [address], * (ABNORMAL) Urinalysis With Microscopic If Indicated (No Culture) - Urine, Clean Catch (08/19/2024 3:02 PM EDT) Color, UA Yellow Yellow, Straw 08/19/2024 3:33 PM EDT [facility] Appearance, UA Clear Clear 08/19/2024 3:33 PM EDT [facility] pH, UA >=9.0(H) 5.0 - 8.0 08/19/2024 3:33 PM EDT [facility] Specific [place], UA 1.018 1.005 - 1.030 08/19/2024 3:33 PM EDT [facility] Glucose, UA Negative Negative 08/19/2024 3:33 PM EDT [facility] Ketones, UA 15 mg/dL (1+)(A) Negative 08/19/2024 3:33 PM EDT [facility] Bilirubin, UA Negative Negative 08/19/2024 3:33 PM EDT [facility] Blood, UA Negative Negative 08/19/2024 3:33 PM EDT [facility] Protein, UA 30 mg/dL (1+)(A) Negative 08/19/2024 3:33 PM EDT [facility] Leuk Esterase, UA Negative Negative 08/19/2024 3:33 PM EDT [facility] Nitrite, UA Negative Negative 08/19/2024 3:33 PM EDT [facility] Urobilinogen, UA 1.0 E.U./dL 0.2 - 1.0 E.U./dL 08/19/2024 3:33 PM EDT [facility] Urine Urine specimen obtained by clean catch procedure / Unknown Collection / Unknown 08/19/2024 3:02 PM EDT 08/19/2024 3:13 PM EDT us Kt Fan DO URINE ORDERABLES Final Resu lt [facility]
[address] [place] [address], [place] [phone] * Amylase (08/19/2024 3:02 PM EDT) Amylase 73 28 - 100 U/L 08/19/2024 3:36 PM EDT [facility] Blood Line / Unknown 08/19/2024 3: 02 PM EDT 08/19/2024 3:10 PM EDT us Kt Fan DO LAB BLOOD ORDERABLES Final Result Performing Organization Address [facility] Co de Phone Number [facility]
[address] [place] [address], [place] [phone] * Lipase (08/19/2024 3:02 PM EDT) Lipase 13 13 - 60 U/L 08/19/2024 3:36 PM EDT [facility] Blood Line / Unknown 08/19/2024 3: 02 PM EDT 08/19/2024 3:10 PM EDT us Kt Fan DO LAB BLOOD ORDERABLES Final Result Performing Organization Address City/[facility]/ZIP Co de Phone Number [facility]
[address] [place] [address], [place] [phone] * (ABNORMAL) Comprehensive Metabolic Panel (08/19/2024 3:02 PM EDT) Glucose 75 65 - 99 mg/dL 08/19/2024 3:38 PM EDT [facility] BUN 3.6(L) 6.0 - 20.0 mg/dL 08/19/2024 3:38 PM T [facility] Creatinine 0.51(L) 0.57 - 1.00 mg/dL 08/19/2024 3:38 PM EDT [facility] Sodium 137 136 - 145 mmol/L 08/19/2024 3:38 PM T [facility] Potassium 2.6(LL) 3.5 - 5.2 mmol/L 08/19/2024 3:38 PM [facility] Comment:Specimen hemolyzed. Result may be falsely elevated. Chloride 99 98 - 107 mmol/L 08/19/2024 3:38 PM [facility] CO2 24.2 22.0 - 29.0 mmol/L 08/19/2024 3:38 PM T [facility] Calcium 8.8 8.6 - 10.5 mg/dL 08/19/2024 3:38 PM T [facility] Total Protein 6.6 6.0 - 8.5 g/dL 08/19/2024 3:38 PM [facility] Albumin 3.4(L) 3.5 - 5.2 g/dL 08/19/2024 3:38 PM [facility] ALT (SGPT) 10 1 - 33 U/L 08/19/2024 3:38 PM T [facility] AST (SGOT) 22 1 - 32 U/L 08/19/2024 3:38 PM T [facility] Alkaline Phosphatase 64 39 - 117 U/L 08/19/2024 3:38 PM [facility] Total Bilirubin 0.5 0.0 - 1.2 mg/dL 08/19/2024 3:38 PM T [facility] Globulin 3.2 gm/dL 08/19/2024 3:38 PM T [facility] Comment:Calculated Result A/G Ratio 1.1 g/dL 08/19/2024 3:38 PM EDT [facility] BUN/Creatinine Ratio 7.1 7.0 - 25.0 08/19/2024 3:38 PM EDT [facility] Anion Gap 13.8 5.0 - 15.0 mmol/L 08/19/2024 3:38 PM EDT [facility] eGFR 126.6 >60.0 mL/min/1.7 3 08/19/2024 3:38 PM EDT [facility] Blood Line / Unknown 08/19/2024 3: 02 PM EDT 08/19/2024 3:10 PM EDT [facility] - 08/19/2024 3:38 PM EDT [...] DO LAB BLOOD ORDERABLES Final Result [facility]
[address] [place] [address], * Type & Screen (08/19/2024 3:02 PM EDT) ABO Type O 08/19/2024 3:51 PM EDT [facility] RH type Positive 08/19/2024 3:51 PM EDT [facility] Antibody Screen Negative 08/19/2024 3:51 PM EDT [facility] T&S Expiration Date 08/22/2024 11:59:59 PM 08/19/2024 3:51 PM EDT [facility] Blood Line / Unknown 08/19/2024 3: 02 PM EDT 08/19/2024 3:15 PM EDT Kt Fan DO BLOOD BANK TEST ORDERABLES Edited Result - Final [facility]
[address] [place] [address], documented in this encounter Visit Diagnoses Diagnosis [...] BPA Driven Protocol Open Order & [facility] Electrolyte Replacement Protocol Algorithm [...] Slowed down infusion)2234 (New Bag - Provider: uYn Nicole RN)233 (New Bag - Provider: Yun [...] documented as of this encounter Care Teams Box Finisher Relationship Specialty Start Date End Date Norma Friedman APRN [address] [place] G3 RAFAELA APPIAH [id number] PCP - General Family Medicine 05/14/24 documented as of this encounter
--- OUTSIDE RECORDS SUMMARY | 2024-08-20 13:44 | XMS_ITS | Encounter Summary ---
[facility] Address [address] [place] [phone] Care Team Providers Care Field Applications Specialist Name Role Phone IvyKade goldbergdev FERNÁNDEZ Primary Care Provider + [phone] Reason for Visit * Auth/Cert (Routine) Specialty Diagnoses / Procedures Referred By Contac t Referred To Contact Referral ID Status Reason Start Date Expiration Date Visits Re quested Visits Authorized 1 1 Encounter Details Date Type Department Care Team (Late st Contact Info) Description 08/20/2024 1:44 PM EDT Anesthesia Event [facility] ENDO SUITES [address] [place] [address] Akash Anguiano MD [address] [place] [address] Liborio Peralta CRNA [address] [place] [address] Anesthesia Record Procedure Summary Procedure Name Responsible [...] = 0.6 oz pur e alcohol) [facility] Utilities Answer Date Recorded In [...] [facility] [place] of Occupat ional Health - Occupational Stress [...] GED or equivalent No 05/28/2024 Preferred Language Uzbek 05/28/2024 PHQ-2 Answer Date Recorded Patient Health [...] 1:23 PM EDT Polly Lacey RN * [place] Suicide Severity Rating Scale (Screener/Recent Self-Report) Question Answer Date of Assessment Author 6. Suicidal Behavior (Lifetime) No 1:23 PM EDT Polly Cabrera RN documented as of this encounter OR Notes * Anesthesia Postprocedure Evaluation - Liborio Peralta CRNA - 08/20/2024 2:18 PM EDT Patient: Whitney Presley Procedure Summary Date: 08/20/24 Room / Location: [facility] ENDOSCOPY 3 / [facility] Anesthesia [...] sounds: normal. Substance History - negative use AN/SSN 2 4 OPERATOR (+) (25 wks, FHT 147) Other Anesthesia Plan ASA 2 general Rapid sequence intravenous induction Anesthetic plan, risks, benefits, and alternatives have been provided, discussed and informed consent has been obtained with: patient. Plan discussed with BENEFITS OFFICER. CODE STATUS: documented in this encounter Plan of Treatment Upcoming Encounters Date Type Department Care Team (Late st Contact Info) Description 01/20/2025 3:30 PM EST Office Visit [facility]STROENTEROLOGY [address] [facility] [address] Robbin Escalante MD [address] [address] documented as of this encounter Procedures Procedure [...] and Staff Patient location during procedure: OR BENEFITS OFFICER/CAA: Junior Zbigniew Jain, DAYNE Indications and Patient [...] documented as of this encounter Care Teams Field Applications Specialist Relationship Specialty Start Date End Date Norma Friedman APRN [address] [place] [address] [place] [id number] PCP - General Family Medicine 05/14/24 documented as of this encounter
--- OUTSIDE RECORDS SUMMARY | 2024-08-29 10:00 | XMS_ITS | Encounter Summary ---
[facility] Organization [facility] Address [address] [place] [address] Care Team Providers Care Casino Floor Person Name Role Phone IvyKade goldbergjoseseven JOLENE Primary Care Provider + [phone] Reason for Visit * Reason Comments Problem Encounter Details Date Type Department Care Team (Late st Contact Info) Description 08/29/2024 10:00 AM EDT Routine [facility] OBGYN [address] [place] [address] Staci Jain MD [address] [place] [address] GA: 26w4d Social History Tobacco Use Types Packs/Day Years Used Date Smoking Tobacco: Never Smokeless Tobacco: Never Alcohol Use Standard Drinks/Week Comments Never 0 (1 standard drink = 0.6 oz pur e alcohol) [facility] Utilities Answer Date Recorded In the past 12 months has [employer], gas, oil, or water [employer] threatened to shut off services in your [...] and heating? Not hard at all 05/28/2024 [facility] [place] [facility] healthal Health - Occupational Stress Questionnaire Answer [...] GED or equivalent No 05/28/2024 Preferred Language American 05/28/2024 PHQ-2 Answer Date Recorded Patient Health [...] [facility] [address] [address] Robbin Escalante MD [address] [address] documented as of this encounter Procedures Procedure [...] 08/30/2024 6:09 AM EDT Performed at: [address] [id number] Soft Tile Setter: Kevin Harman MD, Phone: [phone] Patient Fasting: N us Staci Jain MD LAB BLOOD ORDERABLES Final Result [facility] ([facility]) [address] [place] [address], [facility] [address] [place] [address], * (ABNORMAL) Comprehensive Metabolic Panel (08/29/2024 11:05 [...] 11:0 5 AM EDT 08/29/2024 Narrative [facility] (AMBULATORY) - 08/30/2024 6:09 AM EDT Performed at: 01 - [place] [address] [place], [place] [id number] Soft Tile Setter: Kevin Harman MD, Phone: [phone] Patient Fasting: N Staci Jain MD LAB BLOOD ORDERABLES Final Result Performing Organization Address City/[facility]/ZIP Co de Phone Number [facility] ([facility]) [address] [place] [address], [place] [phone] [facility] [address] [place] [address], [place] [phone] * (ABNORMAL) POC Urinalysis Dipstick (08/29/2024 10:13 AM EDT) Glucose, UA Negative Negative mg/dL [facility] Protein, POC Trace(A) Negative mg/dL [facility] Urine 08/29/2024 10:1 3 AM EDT us Staci Jain MD POINT OF CARE TEST OR DERABLES Final Result Performing Organization Address City/[facility]/ZIP Co de Phone Number [facility]
[address] [place] [address], documented in this encounter Visit Diagnoses Diagnosis [...] documented as of this encounter Care Teams Casino Floor Person Relationship Specialty Start Date End Date Norma Friedman APRN [address] [place] [address] RAFAEL[place] APPIAH [address] PCP - General Family Medicine 05/14/24 documented as of this encounter
--- OUTSIDE RECORDS SUMMARY | 2024-09-23 10:00 | XMS_ITS | Encounter Summary ---
Author Organization [facility] Address [address] [place] [address] Care Team Providers Care Vending Machine Technician Name Role Phone Norma Friedman JOLENE Primary Care Provider +1- [phone] Reason for Referral * Consultation (Routine) - Closed Specialty Diagnoses / Procedures Referred By Contac t Referred To Contact Cardiology Diagnoses Supervision of high risk , antepartum Cardiac arrhythmia, unspecified cardiac arrhythmia type Liborio Weller MD [address] [facility] [address] [place] [address] Phone: tel: fax: Referral ID Status Reason Start Date Expiration Date V isits Requested Visits Authorized [id number] Closed Specialty Services Required 09/23/2024 03/25/2026 1 1 Encounter Details Date Type Department Care Team ([facility] st Contact Info) Description 09/23/2024 10:00 AM EDT Office Visit Medical Office Building Obstetrics and Gynecology [address] [facility], [address] [place] [address] Liborio Weller MD [address] [facility] 140 [place] [address] Supervision of [...] more drinks on one occasion? Never 09/23/2024 [place] Depression Scale Answer Date Recorded [place] Depression Scale Total 0 09/23/2024 The thought [...] last week on 09/19. She presented to [facility] for chest pain and [...] 09/25 and has otherwise never seen a office nurse. She has never seen a fisher sponge hooking. She also reports during this admission she [...] None N JAGDISH Complications: Potassium (K) deficiency [place] Depression Scale Total: 0 Gynecology History No [...] has a past surgical history that includes [place] tooth extraction (N/A); section, low transverse (N/A); [...] prescription(s): ferosul, potassium chloride cr, prenat mv-min w/of-zrmofm-jba, and thiamine. Allergies Allergies[1] Review of Systems [...] and arrhythmia during admission to [facility] on 09/19 HR to 170s-180s with standing, [...] other day Has never been evaluated by office nurse for salt wasting nephropathy PLAN Has nephrology [...] the patient, and documenting this visit. (Est 95910) Brandee Pringle MD Obstetrics & Gynecology, PGY-2 [...] Description 10/24/2024 8:00 AM EDT Office Visit [facility] [place] [address], [address] [place] [address] Nneka Block MD [address] [place] [address] 12/25/2024 1:00 PM EST Office Visit [facility] Nephrology, Bone & Mineral Metabolism [address] [facility], [address] [place] [address] Scheduled Referrals [...] Ketones, Urine 40(A) Negative mg/dL POCT Specific [place], Urine 1.015 POCT Blood, Urine Negative Negative POCT pH, Urine >=9.0(A) 5.0 to 8.0 POCT Protein, Urine 100(A) Negative mg/dL POCT Urobilinogen, Urine 0.2 0.2, 1 E.U./dL POCT Nitrite, Urine Negative Negative POCT Leukocyte Esterase, Urine Negative Negative Test Strip Lot Number [id number] Test Strip Lot Expiration 07/2025 Urine Urine [...] documented as of this encounter Care Teams Vending Machine Technician Relationship Specialty Start Date End Date Norma Friedman APRN [address] [place] [id number] PCP - General 09/23/24 documented as of this encounter
--- OUTSIDE RECORDS SUMMARY | 2024-09-25 14:20 | XMS_ITS | Encounter Summary ---
Author Organization Healthcare Address [address] [place] [address] Care Team Providers Care Tile Sprayer Name Role Phone Norma Friedman JOLENE Primary Care Provider [phone]- [phone] Reason for Referral * Consultation (Routine) - Authorized Specialty Diagnoses / Procedures Referred By Tarik pedersen Referred To Contact Diagnoses Hypokalemia Bill Patrick MD [address] [place] [phone] Phone: tel: fax: Referral ID Status Reason Start Date Expiration Date V isits Requested Visits Authorized [id number] Authorized 09/25/2024 03/27/2026 1 1 * Imaging (Routine) - Authorized Specialty Diagnoses / Procedures Referred By Tarik pedersen Referred To Contact Radiology Diagnoses Hypokalemia Procedures US Renal Complete Bill Patrick MD [address] [place] [phone] Phone: tel: fax: Referral ID Status Reason Start Date Expiration Date V isits Requested Visits Authorized [id number] Authorized 09/25/2024 03/27/2026 1 1 Reason for Visit * Reason Comments Consult * Consultation (Routine) - Closed Specialty Diagnoses / Procedures Referred By Tarik pedersen Referred To Contact Nephrology Diagnoses Hypokalemia Liborio Weller MD [address] [address] Phone: tel: fax: [facility] Nephrology, Bone & Mineral Metabolism [address] , [address] [place] [address] Phone: tel: fax: Referral ID Status Reason Start Date Expiration Date V isits Requested Visits Authorized [id number] Closed Specialty Services Required 09/14/2024 03/16/2026 1 1 Encounter Details Date Type Department Care Team (Late st Contact Info) Description 09/25/2024 2:20 PM EDT Office Visit [facility] Nephrology, Bone & Mineral Metabolism [address], [address] [place] [address] Hypokalemia (Primary Dx) Social History Tobacco Use [...] more drinks on one occasion? Never 09/23/2024 [place] Depression Scale Answer Date Recorded [place] Depression Scale Total 0 09/23/2024 The [...] Follow up with us after 3 months documented in this encounter Plan of Treatment Upcoming Encounters Date Type Department Care Team (Late st Contact Info) Description 10/24/2024 8:00 AM EDT Office Visit [facility] [address] [facility], [address] [place] [address] Nneka Block MD [address] [place] [address] 12/25/2024 1:00 PM EST Office Visit [facility] Nephrology, Bone & Mineral Metabolism [address] [facility], [address] [place] [address] Pending Results Name Type Priority Associated Diagnoses Date /Time Chloride, urine, random Lab Routine Hypokalemia 09/26/2024 10:07 AM EDT Sodium, urine, random Lab Routine Hypokalemia 09/26/2024 10:02 AM EDT Osmolality, urine Lab Routine Hypokalemia 09/26/2024 10:02 AM EDT Protein, Random, Urine with Creatinine Lab Routine Hypokalemia 09/26/2024 10:03 AM EDT Osmolality Lab Routine Hypokalemia 09/26/2024 9:32 AM EDT Potassium, urine, random Lab Routine Hypokalemia 09/26/2024 10:02 AM EDT Renal function panel Lab Routine Hypokalemia 09/26/2024 9:32 AM EDT SSA 52 and 60 (Ro) (YARA) Antibodies, IgG Lab Routine Hypokalemia 09/26/2024 9:32 AM EDT SSB (LA) (YARA) ANTIBODY, IGG Lab Routine Hypokalemia 09/26/2024 9:32 AM EDT Rheumatoid factor, plasma Lab Routine Hypokalemia 09/26/2024 9:32 AM EDT Antinuclear Antibody (JEFFERY), HEp-2, IgG Lab Routine Hypokalemia 09/26/2024 9:32 AM EDT Scheduled Orders Name Type Priority Associated Diagnoses Orde r Schedule Urinalysis with reflex microscopic (Culture NOT Included) Lab Routine Hypokalemia Expected: 09/25/2024 (Approximate), Expires: 03/28/2026 Chloride, urine, random Lab Routine Hypokalemia Expected: 09/25/2024 (Approximate), Expires: 03/29/2026 Sodium, urine, random Lab Routine Hypokalemia Expected: 09/25/2024 (Approximate), Expires: 03/29/2026 Osmolality, urine Lab Routine Hypokalemia Expected: 09/25/2024 (Approximate), Expires: 03/29/2026 Protein, Random, Urine with Creatinine Lab Routine Hypokalemia Expected: 09/25/2024 (Approximate), Expires: 03/29/2026 Osmolality Lab Routine Hypokalemia Expected: 09/25/2024 (Approximate), Expires: 03/29/2026 Potassium, urine, random Lab Routine Hypokalemia Expected: 09/25/2024 (Approximate), Expires: 03/29/2026 Renal function panel Lab Routine Hypokalemia Expected: 09/25/2024 (Approximate), Expires: 03/29/2026 SSA 52 and 60 (Ro) (YARA) Antibodies, IgG Lab Routine Hypokalemia Expected: 09/25/2024 (Approximate), Expires: 03/29/2026 SSB (LA) (YARA) ANTIBODY, IGG Lab Routine Hypokalemia Expected: 09/25/2024 (Approximate), Expires: 03/29/2026 Rheumatoid factor, plasma Lab Routine Hypokalemia Expected: 09/25/2024 (Approximate), Expires: 03/29/2026 Antinuclear Antibody (JEFFERY), HEp-2, IgG Lab Routine Hypokalemia Expected: 09/25/2024 (Approximate), Expires: 03/28/2026 Renal Complete Imaging Routine Hypokalemia Expected: 09/25/2024 (Approximate), Expires: 03/29/2026 Scheduled Referrals Name Type Priority Associated Diagnoses Order Schedule Follow Up Nephrology Outpatient Referral Routine Hypokalemia Expected: 12/26/2024 (Approximate), Expires: 10/26/2025 documented as of this encounter Visit Diagnoses Diagnosis Hypokalemia- Primary Hypopotassemia documented in this encounter Additional Health Concerns Assessment Noted Time A fall risk assessment has been complete d for the patient 09/25/2024 3:05 PM EDT A Body Mass Index follow-up plan has been documented for the patient 09/23/2024 8:28 PM EDT documented as of this encounter Care Teams Tile Sprayer Relationship Specialty Start Date End Date Norma Friedman APRN [address] [place], [place] [id number] PCP - General 09/23/24 documented as of this encounter
[2024-09-26] VITALS (7 sets, daily range): BP systolic 94–113; BP diastolic 45–66; PULSE 66–120; RESP 18; O2SAT 100
--- OUTSIDE RECORDS SUMMARY | 2024-09-26 08:00 | XMS_ITS | Encounter Summary ---
Author Organization [facility] Address [address] [place] [address] Care Team Providers Care Tumblers Supervisor Name Role Phone Norma Friedman BLANKET WINDER OPERATOR Primary Care Provider +1- [phone] Lizz Trinh RN Unavailable Unavailable Reason for Referral * Consultation (Routine) - Authorized Specialty Diagnoses / Procedures Referred By Tarik pedersen Referred To Contact Diagnoses Palpitations Syncope and collapse Nneka Block MD [address] [place] [phone] Phone: tel: fax: Referral ID Status Reason Start Date Expiration Date V isits Requested Visits Authorized [id number] Authorized 09/26/2024 03/28/2026 1 1 * Cardiac Stress Testing (Routine) - Closed Specialty Diagnoses / Procedures Referred By Contac t Referred To Contact Cardiology Diagnoses Palpitations Syncope and collapse Procedures Adult Patch Monitor - 7 Day Nneka Block MD [address] [place] [phone] Phone: tel: fax: Referral ID Status Reason Start Date Expiration Date Visits Re quested Visits Authorized [id number] Closed 09/26/2024 03/28/2026 1 1 Reason for Visit * Consultation (Routine) - Closed Specialty Diagnoses / Procedures Referred By Contac t Referred To Contact Cardiology Diagnoses Supervision of high risk , antepartum Cardiac arrhythmia, unspecified cardiac arrhythmia type KerkhovenLiborio Preciado MD [address] [address] Phone: tel: fax: Referral ID Status Reason Start Date Expiration Date V isits Requested Visits Authorized [id number] Closed Specialty Services Required 09/23/2024 03/25/2026 1 1 Encounter Details Date Type Department Care Team (Late st Contact Info) Description 09/26/2024 8:00 AM EDT Office Visit [facility] [place] [facility] [address] [facility], [address] [place] [address] Nneka Block MD [address] [place] [address] Syncope and collapse (Primary Dx); Atrial fibrillation, unspecified type (CMS/HCC); Palpitations Social History Tobacco Use Types Packs/Day Years Used Date Smoking Tobacco: Never Passive Smoke Exposure: Never Smokeless Tobacco: Never Tobacco Cessation:Counseling Given: [...] more drinks on one occasion? Never 09/23/2024 [place] Depression Scale Answer Date Recorded [place] Depression Scale Total 0 09/23/2024 The thought [...] Sign Reading Time Taken Comments Blood Pressure 90/63 09/26/2024 8:04 AM EDT Pulse 104 09/26/2024 8:04 AM EDT Temperature - - Respiratory Rate - - Oxygen Saturation 99% 09/26/2024 8: 04 AM EDT Inhaled Oxygen Concentration - - Weight 70.3 kg (154 lb 15.7 oz) 09/26/2024 8:04 AM EDT Height 162.6 cm (5' 4 ) 09/26/2024 8:04 AM EDT Body Mass Index 26.6 09/26/2024 8:04 AM EDT documented in this encounter Plan of Treatment Upcoming Encounters Date Type Department Care Team (Late st Contact Info) Description 10/24/2024 8:00 AM EDT Office Visit [facility] [place] [address] [facility], [address] [place] [address] Nneka Block MD [address] [place] [address] 12/25/2024 1:00 PM EST Office Visit [facility] [address] [facility], [address] [place] [address] Pending Results Name Type Priority Associated Diagnoses Date /Time ECG Adult (Now - Performed in your clinic) ECG Routine Atrial fibrillation, unspecified type (CMS/HCC) 09/26/2024 8:21 AM EDT Adult Patch Monitor - 7 Day Cardiac Services Routine Palpitations Syncope and collapse 09/26/2024 9:23 AM EDT Scheduled Orders Name Type Priority Associated Diagnoses Orde r Schedule Adult Patch Monitor - 7 Day Cardiac Services Routine Palpitations Syncope and collapse 1 Occurrences starting 09/26/2024 until 09/26/2026 Scheduled Referrals Name Type Priority Associated Diagnoses Order Schedule Follow Up Cardiology Outpatient Referral Routine Palpitations Syncope and collapse Expected: 10/24/2024, Expires: 03/29/2026 documented as of this encounter Procedures Procedure Name Priority Date/Time Associated Diagnosis Comments ECG ADULT Routine 09/26/2024 8:21 AM EDT Atrial fibrillation, unspecified type (CMS/HCC) documented in this encounter Visit Diagnoses Diagnosis Syncope and collapse- Primary Atrial fibrillation, unspecified type (CMS/HCC) Palpitations documented in this encounter Additional Health Concerns Assessment Noted Time A fall risk assessment has been complete d for the patient 09/26/2024 8:15 AM EDT A Body Mass Index follow-up plan has been documented for the patient 09/23/2024 8:28 PM EDT documented as of this encounter Care Teams Tumblers Supervisor Relationship Specialty Start Date End Date Norma Friedman APRN [address] [place] [address] PCP - General 09/23/24 Lizz Trinh, RN [facility] Registered Nurse Cardiology 09/26/24 documented as of this encounter
--- OUTSIDE RECORDS SUMMARY | 2024-09-26 09:06 | XMS_ITS | Encounter Summary ---
Author Organization [facility] Address [address] [place] [address] Care Team Providers Care Art Sales Consultant Name Role Phone Elder Kadedev Coy VEST FRONT PRESSER Primary Care Provider +1- [phone] Lizz Trinh RN Unavailable Unavailable Reason for Referral * Cardiac Stress Testing (Routine) - Closed Specialty Diagnoses / Procedures Referred By Tarik pedersen Referred To Contact Cardiology Diagnoses Palpitations Syncope and collapse Procedures Adult Patch Monitor - 7 Day Nneka Block MD [address] [place] [address] Phone: tel: fax: Referral ID Status Reason Start Date Expiration Date Visits Re quested Visits Authorized [id number] Closed 09/26/2024 03/28/2026 1 1 Reason for Visit * Cardiac Stress Testing (Routine) - Closed Specialty Diagnoses / Procedures Referred By Tarik pedersen Referred To Contact Cardiology Diagnoses Palpitations Syncope and collapse Procedures Adult Patch Monitor - 7 Day Nneka Block MD [address] [place] [address] Phone: tel: fax: Referral ID Status Reason Start Date Expiration Date Visits Re quested Visits Authorized [id number] Closed 09/26/2024 03/28/2026 1 1 Encounter Details Date Type Department Care Team (Latest Contact Info) Description 09/26/2024 9:06 AM EDT Hospital Encounter Medical Office Building Cardiac Diagnostic Testing Medical Office Building Echo Lab [address] [facility], [address] [place] [address] Palpitations; Syncope and collapse Social History Tobacco Use Types Packs/Day Years [...] more drinks on one occasion? Never 09/23/2024 [place] Depression Scale Answer Date Recorded [place] Depression Scale Total 0 09/23/2024 The thought [...] Description 10/24/2024 8:00 AM EDT Office Visit [facility] [place] [address] [facility], [address] [place] [address] Nneka Block MD [address] [place] [address] 12/25/2024 1:00 PM EST Office [facility] Nephrology, Bone & Mineral Metabolism [address] [facility], [address] [place] [address] Pending Results Name Type Priority [...] as of this encounter Care Teams Art Sales Consultant Relationship Specialty Start Date End Date Norma Friedman APRN [address] [place] [address] PCP - General 09/23/24 Lizz Trinh, RN [facility] Registered Nurse Cardiology 09/26/24 documented as of this encounter
--- OUTSIDE RECORDS SUMMARY | 2024-09-26 11:12 | XMS_ITS | Encounter Summary ---
[facility] Organization [facility] Address [address] [place] [address] Care Team Providers Care Respiratory Care Program Director Name Role Phone Elder Norma FERNÁNDEZ Primary Care Provider + [phone] Encounter Details Date Type Department Care Team (Latest Contact Info) Description 08/29/2024 Travel Social History Tobacco Use Types Packs/Day Years Used Date Smoking Tobacco: Never Smokeless Tobacco: Never Alcohol Use Standard Drinks/Week Comments Never 0 (1 standard drink = 0.6 oz pur e alcohol) [facility] Utilities Answer Date Recorded In the past 12 months has [employer] electric, gas, oil, or water company threatened [...] hard at all 05/28/2024 [facility] [place] of Occupat ional Health - Occupational [...] GED or equivalent No 05/28/2024 Preferred Language Macedonian 05/28/2024 PHQ-2 Answer Date Recorded Patient Health [...] Visit [facility] GASTROENTEROLOGY [address] [facility] [address] [place] [address] Robbin Escalante MD [address] [facility] [address] [place] [address] documented as of this encounter Visit Diagnoses Not on filedocumented in this encounter Additional Health Concerns Assessment Noted Time PHQ-2 Depression Total Score: 2 05/28/19 25 4:39 PM EDT documented as of this encounter Care Teams Respiratory Care Program Director Relationship Specialty Start Date End Date Norma Friedman APRN [address] [place] [address] [place] [address] PCP - General Family Medicine 05/14/24 documented as of this encounter
--- OUTSIDE RECORDS SUMMARY | 2024-09-26 11:12 | XMS_ITS | Encounter Summary ---
[facility] Address [address] [place] [id number] Care Team Providers Care Lens Assorter Name Role Phone Ivyashlyn Valentinoseven JOLENE Primary Care Provider + [phone] Encounter Details Date Type Department Care Team (Late st Contact Info) Description 06/26/2024 Results Follow-Up [facility] OBGYN [address] [address] Koby Roberts MD [address] [place] [address] Social History Tobacco Use Types Packs/Day Years Used Date Smoking Tobacco: Never Smokeless Tobacco: Never Alcohol Use Standard Drinks/Week Comments Never 0 (1 standard drink = 0.6 oz pur e alcohol) [facility] Utilities Answer Date Recorded In the past 12 months has [employer], gas, oil, or water [employer] threatened to shut off services in [...] hard at all 05/28/2024 [facility] [place] of Occupat ional Health - Occupational Stress [...] GED or equivalent No 05/28/2024 Preferred Language Turkmen 05/28/2024 PHQ-2 Answer Date Recorded Patient Health [...] Visit [facility] GASTROENTEROLOGY [address] [address] Robbin Escalante MD [address] [address] documented as of this encounter Visit Diagnoses Not on filedocumented in this encounter Additional Health Concerns Assessment Noted Time PHQ-2 Depression Total Score: 2 05/28/19 25 4:39 PM EDT documented as of this encounter Care Teams Lens Assorter Relationship Specialty Start Date End Date Norma Friedman APRN [address] [place] [address] [place] [address] PCP - General Family Medicine 05/14/24 documented as of this encounter
--- OUTSIDE RECORDS SUMMARY | 2024-09-26 11:12 | XMS_ITS | Encounter Summary ---
[facility] Address [address] [place] [id number] Care Team Providers Care Manager Valuation Name Role Phone Ivyashlyn Norma FERNÁNDEZ Primary Care Provider + [phone] Encounter Details Date Type Department Care Team (Late st Contact Info) Description 08/28/2024 Telephone [facility] OBGYN [address] [address] Staci Jain MD [address] [place] [id number] Social History Tobacco Use Types Packs/Day Years Used Date Smoking Tobacco: Never Smokeless Tobacco: Never Alcohol Use Standard Drinks/Week Comments Never 0 (1 standard drink = 0.6 oz pur e alcohol) [facility] Utilities Answer Date Recorded In the past 12 months has [employer], gas, oil, or water [employer] threatened to shut off services in your [...] Not hard at all 05/28/2024 [facility] of Occupat ional Health - [...] sit with a family member admitted to [facility] today and does not know if she can make it back for labs (BMP). She does have an appt in [facility] at 10 am tomorrow. Advisedthat it [...] states she was supposed to come into [place] office today to have labs drawn however sheis currently hung up [facility] is wondering if she could just have labs drawn there? documented in this encounter Plan of Treatment Upcoming Encounters Date Type Department Care Team (Late st Contact Info) Description 01/20/2025 3:30 PM EST Office Visit [facility] GASTROENTEROLOGY [address] [facility] [address] [place] [address] Robbin Escalante MD [address] [facility] [address] [place] [address] documented as of this encounter Visit Diagnoses Not on filedocumented in this encounter Additional Health Concerns Assessment Noted Time PHQ-2 Depression Total Score: 2 05/28/19 25 4:39 PM EDT documented as of this encounter Care Teams Manager Valuation Relationship Specialty Start Date End Date Norma Friedman APRN [address] [place] [address] [place] [address] PCP - General Family Medicine 05/14/24 documented as of this encounter
--- OUTSIDE RECORDS SUMMARY | 2024-09-26 11:12 | XMS_ITS | Encounter Summary ---
[facility] Address [address] [place] [address] Care Team Providers Care Taping Machine Operator Name Role Phone Norma Friedman APRN Primary Care Provider + [phone] Encounter Details Date Type Department Care Team (Late st Contact Info) Description 08/19/2024 Telephone [facility] OBGYN [address] [place] [address] Jacey Mathews, MANAGING PARTNER [address] [facility] [address] [place] [address] Social History Tobacco Use Types Packs/Day Years Used Date Smoking Tobacco: Never Smokeless Tobacco: Never Alcohol Use Standard Drinks/Week Comments Never 0 (1 standard drink = 0.6 oz pur e alcohol) [facility] Utilities Answer Date Recorded In the past 12 months has [employer], [employer], oil, or water [employer] threatened to shut off services in your [...] heating? Not hard at all 05/28/2024 [facility] of Occupat ional [facility] - Occupational Stress Questionnaire Answer Date [...] [facility] GASTR[facility]OLOGY [address] [address] Robbin Escalante MD [address] [address] documented as of this encounter Visit Diagnoses Not on filedocumented in this encounter Additional Health Concerns Assessment Noted Time PHQ-2 Depression Total Score: 2 05/28/19 25 4:39 PM EDT documented as of this encounter Care Teams Taping Machine Operator Relationship Specialty Start Date End Date Norma Friedman APRN [address] [place] [address] [place] [address] PCP - General Family Medicine 05/14/24 documented as of this encounter
--- OUTSIDE RECORDS SUMMARY | 2024-09-26 11:12 | XMS_ITS ---
Author Organization [facility] Address [address] [place] [address] Care Team Providers Care Windlasser Name Role Phone Norma Friedman APRN Primary Care Provider Motherhood Connection Status:Engaged (Active) Start date:05/23/2024 Enrollment date:05/23/2024 Case Team Name Relationship Phone Bindu Castellon RN Nurse Navigator Christy Zabala RN(Responsible Staff) Nurse Navig ator Continued Care and Services Coordination
--- OUTSIDE RECORDS SUMMARY | 2024-09-26 11:12 | XMS_ITS | Encounter Summary ---
[facility] Address [address] [place] [id number] Care Team Providers Care Carpet Binder Name Role Phone Elder Norma FERNÁNDEZ Primary Care Provider + [phone] Encounter Details Date Type Department Care Team (Late st Contact Info) Description 07/07/2024 Results Follow-Up [facility] OBGYN [address] [place] [address] [place] [phone] Kelly Delgado APRN [address] [facility] [address] [place] [address] Social History Tobacco Use Types Packs/Day Years Used Date Smoking Tobacco: Never Smokeless Tobacco: Never Alcohol Use Standard Drinks/Week Comments Never 0 (1 standard drink = 0.6 oz pur e alcohol) [facility] Utilities Answer Date Recorded In the past 12 months has [employer], gas, oil, or water [employer] threatened to shut off services in [...] and heating? Not hard at all 05/28/2024 [facility] of Occupat ional Health - Occupational [...] Office Visit [facility]ENTEROLOGY [address] [facility] [address] [address] Robbin Escalante MD [address] [address] documented as of this encounter Visit Diagnoses Not on filedocumented in this encounter Additional Health Concerns Assessment Noted Time PHQ-2 Depression Total Score: 2 05/28/19 25 4:39 PM EDT documented as of this encounter Care Teams Carpet Binder Relationship Specialty Start Date End Date Norma Friedman APRN [address] [place] [address] [place] [address] PCP - General Family Medicine 05/14/24 documented as of this encounter
--- OUTSIDE RECORDS SUMMARY | 2024-09-26 11:12 | XMS_ITS | Encounter Summary ---
[facility] Address [address] [place] [address] Care Team Providers Care Hotel Or Motel Cleaning Supervisor Name Role Phone Elder Norma FERNÁNDEZ Primary Care Provider + [phone] Encounter Details Date Type Department Care Team (Latest Contact Info) Description 08/19/2024 Travel Social History Tobacco Use Types Packs/Day Years Used Date Smoking Tobacco: Never Smokeless Tobacco: Never Alcohol Use Standard Drinks/Week Comments Never 0 (1 standard drink = 0.6 oz pur e alcohol) [facility] Utilities Answer Date Recorded In the past 12 months has [employer] electric, gas, oil, or water company threatened [...] and heating? Not hard at all 05/28/2024 [facility] [place] of Occupat ional Health - Occupational Stress [...] GED or equivalent No 05/28/2024 Preferred Language Tristanian 05/28/2024 PHQ-2 Answer Date Recorded Patient Health [...] 2:34 PM EDT Nneka Cross RN * [place] Suicide Severity Rating Scale (Screener/Recent Self-Report) Question Answer Date of Assessment Author 6. Suicidal Behavior (Lifetime) No 2:34 PM EDT Nneka Cross RN documented as of this encounter Plan of Treatment Upcoming Encounters Date Type Department Care Team (Late st Contact Info) Description 01/20/2025 3:30 PM EST Office Visit [facility] GASTROENTEROLOGY [address] [address] Robbin Escalante MD [address] [address] documented as of this encounter Visit Diagnoses Not on filedocumented in this encounter Additional Health Concerns Assessment Noted Time PHQ-2 Depression Total Score: 2 05/28/19 25 4:39 PM EDT documented as of this encounter Care Teams Hotel Or Motel Cleaning Supervisor Relationship Specialty Start Date End Date Norma Friedman APRN [address] [place] [address] [place] [address] PCP - General Family Medicine 05/14/24 documented as of this encounter
--- OUTSIDE RECORDS SUMMARY | 2024-09-26 11:12 | XMS_ITS | Clinical Summary ---
Author Organization [facility] Address [place] [address] Phone Care Team Providers Care Substance Abuse Services Director Name Role Phone Unavailable Primary Care [...] migh t be different from the original. [facility] - Edwardo Ojeda MD Interventional Pain Protocol: NS Appt 03/29/22 Letter Sent Maxime report completed (EVERY 3 MONTHS) ( 03/23/22) Pharmacy: [facility] [address] [place] [address] [address] - [phone] No known active problems Social History Tobacco [...] patient's age to complete this topic Insurance Perfect Price [facility] [address]
--- OUTSIDE RECORDS SUMMARY | 2024-09-26 11:12 | XMS_ITS | Encounter Summary ---
Author Organization [employer] ([place], [place], [place], [place]) Address [address] [place] [address] Care Team Providers Care Economics Department Chair Name Role Phone Unavailable Primary Care Provider Unavailabl e Encounter Details Date Type Department Care Team (Late st Contact Info) Description 07/17/2019 Transcribed Document [facility] Family Medicine [address] [place] [address] ProviderEleno MD [address] [place], [place] [address] Social History Tobacco Use Types Packs/Day Years [...] On: 07/17/2019 19:17 EDT by KARLENE MCKINLEY field service analyst Process Patient Disposition : AMA/Elope/LWBS KARLENE MCKINLEY [...]
--- OUTSIDE RECORDS SUMMARY | 2024-09-26 11:12 | XMS_ITS | Encounter Summary ---
Author Organization [facility] [place] Address [address] [place] [address] Care Team Providers Care Spike Driver Name Role Phone Ivyashlyn Norma FERNÁNDEZ Primary Care Provider + [phone] Encounter Details Date Type Department Care Team (Late st Contact Info) Description 08/27/2024 Telephone [facility] OBGYN [address] [place] [address] Staci Jain MD 1700 [facility] [address] [place] [address] Social History Tobacco Use Types Packs/Day Years Used Date Smoking Tobacco: Never Smokeless Tobacco: Never Alcohol Use Standard Drinks/Week Comments Never 0 (1 standard drink = 0.6 oz pur e alcohol) [facility] Utilities Answer Date Recorded In the past 12 months has [employer], [employer], oil, or water [email or web address] threatened to shut off services in your [...] and heating? Not hard at all 05/28/2024 [facility] [place] of Occupat ional Health - Occupational Stress [...] GED or equivalent No 05/28/2024 Preferred Language French 05/28/2024 PHQ-2 Answer Date Recorded Patient Health [...] EST Office Visit [facility] GASTROENTEROLOGY [address] [phone] Robbin Escalante MD [address] [address] documented as of this encounter Visit Diagnoses Diagnosis History of hypokalemia- Primary documented in this encounter Additional Health Concerns Assessment Noted Time PHQ-2 Depression Total Score: 2 05/28/19 25 4:39 PM EDT documented as of this encounter Care Teams Spike Driver Relationship Specialty Start Date End Date Norma Friedman APRN [address] [place] RAFAELA APPIAH [address] PCP - General Family Medicine 05/14/24 documented as of this encounter
--- OUTSIDE RECORDS SUMMARY | 2024-09-26 11:12 | XMS_ITS | Encounter Summary ---
Author Organization [facility] Address [address] [place] [address] Care Team Providers Care Measurement Advisor Name Role Phone Elder Kadedev Coy APRN Primary Care Provider +1- [phone] Lizz Trinh RN Unavailable Unavailable Reason for Referral * Consultation (Routine) - Authorized Specialty Diagnoses / Procedures Referred By Tarik pedersen Referred To Contact Nephrology Diagnoses History of proteinuria syndrome care, subsequent , second trimester Staci Jain MD [address] [address] Phone: tel: fax: [facility] Nephrology, Bone & Mineral Metabolism [address] [facility], [address] [place] [address] Phone: tel: fax: Referral ID Status Reason Start Date Expiration Date Visits Requested Visits Authorized [id number] Authorized Specialty Services Required 07/22/2024 01/21/2026 1 1 Encounter Details Date Type Department Care Team (Late st Contact Info) Description 07/22/2024 [facility] [address] [place] [address] Staci Jain MD 1700 [place] [address] History of proteinuria syndrome (Primary Dx); care, [...] Description 10/24/2024 8:00 AM EDT Office Visit [facility] [place] [address] [facility], [address] [place] [address] Nneka Block MD [address] [place] [address] 12/25/2024 1:00 PM EST Office Visit [facility] [place] Nephrology, Bone & Mineral Metabolism [address] [facility], [address] [place] [address] Scheduled Referrals Name Type Priority Associated Diagnoses Orde r Schedule Ambulatory referral to Nephrology Outpatient Referral Routine History of proteinuria syndrome care, subsequent , second trimester Expected: 07/22/2024 (Approximate), Expires: 01/23/2026 documented as of this encounter Visit Diagnoses Diagnosis History of proteinuria syndrome- Primary care, subsequent , second trimester documented in this encounter Care Teams Measurement Advisor Relationship Specialty Start Date End Date Norma Friedman APRN [address] [place] [id number] PCP - General 09/23/24 Lizz Trinh, RN [facility] Registered Nurse Cardiology 09/26/24 documented as of this encounter
--- OUTSIDE RECORDS SUMMARY | 2024-09-26 11:12 | XMS_ITS | Encounter Summary ---
[facility] Organization [facility] Address [address] [place] [id number] Care Team Providers Care Class C Driver Name Role Phone IvyKade goldbergjoseseven JOLENE Primary Care Provider + [phone] Encounter Details Date Type Department Care Team (Late st Contact Info) Description 09/26/2024 Documentation [facility]OR DELIVERY [address] [place] [phone] Christy Zabala, RN Social History Tobacco Use [...] Not hard at all 05/28/2024 [facility] of Occupat ional Health - Occupational Stress [...] GED or equivalent No 05/28/2024 Preferred Language Cape Verdean 05/28/2024 PHQ-2 Answer Date Recorded Patient Health [...] Visit [facility] GASTROENTEROLOGY 1720 [facility] [address] [place] [address] Robbin Escalante MD [address] [address] documented as of this encounter Visit Diagnoses Not on filedocumented in this encounter Additional Health Concerns Assessment Noted Time PHQ-2 Depression Total Score: 2 05/28/19 25 4:39 PM EDT documented as of this encounter Care Teams Class C Driver Relationship Specialty Start Date End Date Norma Friedman APRN [address] [place] [address] PCP - General Family Medicine 05/14/24 documented as of this encounter
--- OUTSIDE RECORDS SUMMARY | 2024-09-26 11:12 | XMS_ITS | Referral Summary ---
Author Organization [facility] ([place], [place], [place], [place]) Address [address] [place] [address] Care Team Providers Care Clinical Audiologist Name Role Phone Unavailable Primary Care Provider [...]
--- OUTSIDE RECORDS SUMMARY | 2024-09-26 11:12 | XMS_ITS | Encounter Summary ---
[facility] Organization [facility] Address [address] [place] [id number] Care Team Providers Care Audit Officer Name Role Phone IvyKade goldbergjoseseven JOLENE Primary Care Provider + [phone] Encounter Details Date Type Department Care Team (Late st Contact Info) Description 09/03/2024 Results Follow-Up [facility] OBGYN [address] [place] [address] Staci Jain MD 1700 [facility] [address] [place] [address] Social History Tobacco Use Types Packs/Day Years Used Date Smoking Tobacco: Never Smokeless Tobacco: Never Alcohol Use Standard Drinks/Week Comments Never 0 (1 standard drink = 0.6 oz pur e alcohol) [facility] Utilities Answer Date Recorded In the past 12 months has [employer], gas, oil, or water [employer] threatened to shut off services in your [...] and heating? Not hard at all 05/28/2024 [facility] of Occupat ional Health - [...] GED or equivalent No 05/28/2024 Preferred Language Kinyarwanda 05/28/2024 PHQ-2 Answer Date Recorded Patient Health [...] Office Visit [facility] GASTROENTEROLOGY [address] [address] Robbin Escalante MD [address] [address] documented as of this encounter Visit Diagnoses Not on filedocumented in this encounter Additional Health Concerns Assessment Noted Time PHQ-2 Depression Total Score: 2 05/28/19 4:39 PM EDT documented as of this encounter Care Teams Audit Officer Relationship Specialty Start Date End Date Norma Friedman APRN [address] [place] [address] RAFAELA APPIAH [address] PCP - General Family Medicine 05/14/24 documented as of this encounter
--- OUTSIDE RECORDS SUMMARY | 2024-09-26 11:12 | XMS_ITS | Encounter Summary ---
Author Organization [facility] Address [address] [place] [id number] Care Team Providers Care Embalmer Apprentice Name Role Phone Ivyashlyn Norma FERNÁNDEZ Primary Care Provider + [phone] Encounter Details Date Type Department Care Team (Late st Contact Info) Description 09/02/[address] [facility] OBGYN [address] [address] Staci Jain MD [address] [place] [id number] Social History Tobacco Use Types Packs/Day Years Used Date Smoking Tobacco: Never Smokeless Tobacco: Never Alcohol Use Standard Drinks/Week Comments Never 0 (1 standard drink = 0.6 oz pur e alcohol) [facility] Utilities Answer Date Recorded In the past 12 months has [employer], [employer], oil, or water [employer] threatened to shut off services in your [...] PM EDT She just got d/c'd from [facility] 2 hours ago and they gave her a total 10 MLE of K+ and 3 units of Mag and 2 liters of LR. She has decided to transfer care to [facility] as it iscloser to her like 15 min away. She wants you (Dr. Jain) to know this has nothing to you but rather the nurses and gem stone cutter doctor did not relay the labs to you in a faster fashion. She said you can call her if you want and she is not angry. Dr. Jain was notified. * Telephone Encounter - Frederick Gruber RN - 09/02/2024 3:10 PM EDT Spontlyt message sent to the pt regarding outpt infusion apt tomorrow at [place]. documented in this encounter Plan of Treatment Upcoming Encounters Date Type Department Care Team (Late st Contact Info) Description 01/20/2025 3:30 PM EST Office Visit [facility] GASTROENTEROLOGY [address] [place] [address] [place] [address] Robbin Escalante MD [facility] [facility] [address] [place] [address] documented as of this encounter Visit Diagnoses Not on filedocumented in this encounter Additional Health Concerns Assessment Noted Time PHQ-2 Depression Total Score: 2 05/28/19 25 4:39 PM EDT documented as of this encounter Care Teams Embalmer Apprentice Relationship Specialty Start Date End Date Norma Friedman APRN [address] [place] [address] [place] [address] PCP - General Family Medicine 05/14/24 documented as of this encounter
--- OUTSIDE RECORDS SUMMARY | 2024-09-26 11:12 | XMS_ITS ---
Author Organization [facility] Address [address] [place] [address] Care Team Providers Care Drapery Seamstress Name Role Phone Unavailable Primary Care Provider Unavailabl e Transplant Episode Kidney Potential Donor [facility] ([place], [place]) - [facility] Referred on 05/03/2022 Marked as Deferred on 05/04/2022 Reason: Other Kidney CoordinatorNadine Augustin R.N. Phone: N/A Fax: N/A Email: N/A Care Team Name Role Phone Fax Email Nadine Augustin R.N. Kidney Coordinator N/A N/A N/A Events Pre-Donation Referred: 05/03/2022
--- OUTSIDE RECORDS SUMMARY | 2024-09-26 11:12 | XMS_ITS | Clinical Summary ---
Author Organization [facility] Address [address] [place] [address] Care Team Providers Care Brush Fabrication Supervisor Name Role Phone Unavailable Primary Care Provider Unavailabl e Source Comments [facility] is fully rolled out with thefollowing exceptions:General Clinical Research [facility] Social History Tobacco Use Types Packs/Day [...]
--- OUTSIDE RECORDS SUMMARY | 2024-09-26 11:12 | XMS_ITS | Encounter Summary ---
Author Organization Healthcare Address [address] [place] [address] Care Team Providers Care Gas And Oil Checker Name Role Phone Norma burger JOLENE Primary Care Provider +1- [phone] Lizz Trinh RN Unavailable Unavailable Encounter Details Date Type Department Care Team (Late Contact Info) Description 07/22/2024 Community [facility] Community Practice [address] [place] [address] Sandy Cardenas MD 1700 [facility] [address] [place] [address] Social History Tobacco Use Types Packs/Day Years [...] Department Care Team (Late Contact Info) Description 10/24/2024 8:00 AM EDT Office Visit [facility] [place] [address] [facility], [address] [place] [address] Nneka Block MD [address] [place] [address] 12/25/2024 1:00 PM EST Office Visit [facility] Nephrology, Bone & Mineral Metabolism [address] [facility], [address] [place] [address] documented as of this encounter Visit Diagnoses Not on filedocumented in this encounter Care Teams Gas And Oil Checker Relationship Specialty Start Date End Date Norma Friedman, JOLENE [address] [place], [place] [phone] PCP - General 09/23/24 Lizz Trinh, RN [facility] Registered Nurse Cardiology 09/26/24 documented as of this encounter
--- OUTSIDE RECORDS SUMMARY | 2024-09-26 11:12 | XMS_ITS | Clinical Summary ---
Author Organization [employer] ([place], [place], [place], [place]) Address [address] [place] [address] Care Team Providers Care Customer Experience Leader Name Role Phone Unavailable Primary Care [...]
--- OUTSIDE RECORDS SUMMARY | 2024-09-26 11:13 | XMS_ITS | Encounter Summary ---
Author Organization Healthcare Address [address] [place] [address] Care Team Providers Care Equipment Application Specialist Name Role Phone Norma Friedman APRN Primary Care Provider +1- [phone] Encounter Details Date Type Department Care Team (Latest Contact Info) Description 09/25/2024 Travel Social History Tobacco Use Types Packs/Day [...] more drinks on one occasion? Never 09/23/2024 [place] Depression Scale Answer Date Recorded [place] Depression Scale Total 0 09/23/2024 The thought [...] Description 10/24/2024 8:00 AM EDT Office Visit [facility] [place] [address] [facility], [address] [place] [address] Nneka Block MD [address] [place] [address] 12/25/2024 1:00 PM EST Office Visit [facility] Nephrology, Bone & Mineral Metabolism [address] [facility], [address] [place] [address] documented as of this encounter Visit Diagnoses Not on filedocumented in this encounter Additional Health Concerns Assessment Noted Time A fall risk assessment has been complete d for the patient 09/25/2024 3:05 PM EDT A Body Mass Index follow-up plan has been documented for the patient 09/23/2024 8:28 PM EDT documented as of this encounter Care Teams Equipment Application Specialist Relationship Specialty Start Date End Date Norma Friedman APRN [address] [place] [address] PCP - General 09/23/24 documented as of this encounter
--- OUTSIDE RECORDS SUMMARY | 2024-09-26 11:13 | XMS_ITS | Encounter Summary ---
Author Organization Healthcare Address [address] [place] [address] Care Team Providers Care Lithoduplicator Operator Name Role Phone Norma Friedman APRN Primary Care Provider +1- [phone] Encounter Details Date Type Department Care Team [...] more drinks on one occasion? Never 09/23/2024 [place] Depression Scale Answer Date Recorded [place] Depression Scale Total 0 09/23/2024 The thought [...] Description 10/24/2024 8:00 AM EDT Office Visit [facility] [place] [address] [facility], [address] [place] [address] Nneka Block MD [address] [place] [address] 12/25/2024 1:00 PM EST Office Visit [facility] Nephrology, Bone & Mineral Metabolism [address] [facility], [address] [place] [address] documented as of this encounter Visit Diagnoses Not on filedocumented in this encounter Additional Health Concerns Assessment Noted Time A Body Mass Index follow-up plan has been documented for the patient 09/23/2024 8:28 PM EDT documented as of this encounter Care Teams Lithoduplicator Operator Relationship Specialty Start Date End Date Norma Friedman APRN [address] [place] [address] PCP - General 09/23/24 documented as of this encounter
--- OUTSIDE RECORDS SUMMARY | 2024-09-26 11:13 | XMS_ITS | Clinical Summary ---
Author Organization Healthcare Address [address] [place] [address] Care Team Providers Care Electrical Tester Name Role Phone Norma Friedman JOLENE Primary Care Provider +1- [phone] Lizz Trinh RN Unavailable Unavailable Allergies Active Allergy Reactions Criticality Noted Date Comments Bismuth Subsalicylate Other - please document in the comment field,Unknown - Patient states they do not know rxn details,Swelling High 01/04/2021 na Peanut Allergen Powder-Dnfp Hives Medium 09/23/2024 Tobacco Other - please document in the comment field,Shortness of breath High 05/28/2024 SOB when exposed to smoke, contact dermatitis with skin contact Medications Prenat MV-Min w/Qe-Fzpern-ZLL ( COMPLETE PO) Active potassium chloride CR 10 MEQ PO ER tablet Take 1 tablet by mouth 2 times a day. Active thiamine (Vitamin B-1) 100 MG tablet Take 1 tablet by mouth 1 time each day. 025 Active FeroSul 325 (65 Fe) MG tablet Take 1 tablet by mouth daily. Active metoprolol succinate XL (Toprol XL) 25 MG 24 hr tablet Take 0.5 tablets by mouth 2 times a day. Do not crush or chew. 30 tablet 1 Active Additional Information Patient not taking.Reported on 09/26/2024 potassium chloride (Klor-Con) 20 MEQ packet Take twice a day for 3 days each week. Weekly labs 025 Active pantoprazole (Protonix) 40 MG EC tablet Active ondansetron ODT (Zofran-ODT) 4 MG disintegrating tablet DISSOLVE 1 TABLET IN MOUTH EVERY 8 HOURS NEEDED FOR NAUSEA AND VOMITING FOR 4 DAYS Active omeprazole (PriLOSEC) [address] capsule Take 1 capsule by mouth 1 time each day. Active metoprolol succinate XL (Toprol XL) 25 MG 24 hr tablet Take 1 tablet by mouth 2 times a day. Do not crush or chew. 60 tablet 1 025 2024 Discontinued Tkpxbvqy-Wsn-Wi-F A ( 1 + IRON PO) 2024 Discontinued Active Problems Problem Noted Date Diagnosed Date Hypokalemia 09/25/2024 Estimated Date of Delivery Comme nts Yes 12/01/2024 Encounters Date Type Department Care Team Description 09/26/2024 9:06 AM EDT Hospital Encounter [facility] Cardiac Diagnostic Testing Medical Office Building Echo Lab [address] [facility], [address] [place] [address] Palpitations; Syncope and collapse 09/26/2024 8:00 AM EDT Office Visit [facility] [place] [address] [facility], [address] [place] [address] Nneka Block MD Syncope and collapse (Primary Dx); Atrial fibrillation, unspecified type (CMS/HCC); Palpitations 09/26/2024 Travel 09/25/2024 2:20 PM EDT Office Visit [facility] Nephrology, Bone & Mineral Metabolism [address] [facility], [address] [place] [address] Hypokalemia (Primary Dx) 09/25/2024 Travel 09/23/2024 10:00 AM EDT Office Visit [facility] Obstetrics and Gynecology [address] [facility], [address] [place] [address] Liborio Weller MD Supervision of high risk , antepartum (Primary Dx); Cardiac arrhythmia, unspecified cardiac arrhythmia type 09/23/2024 Travel 09/17/2024 Telephone [facility] Nephrology, Bone & Mineral Metabolism [address] [facility], [address] [place] [address] Sherley Gold, MANAGER ERP 09/17/2024 Telephone [facility] Obstetrics [facility] Gynecology [address] [facility], [address] [place] [address] Josefina Shay RN 09/14/2024 Telephone [facility] Obstetrics & Gynecology [address] [place] [address] Susi Wren MD 07/22/2024 [facility] [address] [place] [address] Staci Jain MD History of proteinuria syndrome (Primary Dx); care, subsequent , second trimester 07/22/2024 [facility] [address] [place] [address] Sandy Cardenas MD from Last 3 Months [...] more drinks on one occasion? Never 09/23/2024 [place] Depression Scale Answer Date Recorded [place] Depression Scale Total 0 09/23/2024 The thought [...] Pulse 104 09/26/2024 8:04 AM EDT Temperature 37 C (98.6 F) 09/25/2024 2:56 PM EDT Respiratory Rate 18 09/23/2024 10:1 8 AM EDT Oxygen Saturation 99% 09/26/2024 8:04 AM EDT Inhaled Oxygen Concentration - - Weight 70.3 kg (154 lb 15.7 oz) 09/26/2024 8:04 AM EDT Height 162.6 cm (5' 4 ) 09/26/2024 8:04 AM EDT Body Mass Index 26.6 09/26/2024 8:04 AM EDT Plan of Treatment Upcoming Encounters Date Type Department Care Team (Late st Contact Info) Description 10/24/2024 8:00 AM EDT Office Visit [facility] [place] [place] [address] [facility], [address] [place] [address] Nneka Block MD [address] [place] [address] 12/25/2024 1:00 PM EST Office Visit [facility] Nephrology, Bone & Mineral Metabolism [address] [facility], [address] [place] [address] Health Maintenance Due Date Last Done Comments [facility]-/Child/Adol SDOH Screenings 1991 [facility]-Varicella Vaccines (1 of 2 - 13+ 2-dose series) 2004 [facility]- SDOH Screenings 2009 [facility]-Adult SDOH Screenings 2009 [facility]-Hepatitis B Vaccines (1 of 3 - 19+ 3-dose series) 2010 [facility]-Pap Smear 2012 [facility]-Cervical Cancer Screening 2021 [facility]-HPV/Cotest 2021 [id number] Vaccine ( season) 2023 05/04/2022 [facility]-Influenza Vaccine [...] AM EDT Atrial fibrillation, unspecified type (CMS/HCC) POCT URINALYSIS DIPSTICK Routine 09/23/2024 10:54 AM [...] Ketones, Urine 40(A) Negative mg/dL POCT Specific [place], Urine 1.015 POCT Blood, Urine Negative Negative POCT pH, Urine >=9.0(A) 5.0 to 8.0 POCT Protein, Urine 100(A) Negative mg/dL POCT Urobilinogen, Urine 0.2 0.2, 1 E.U./dL POCT Nitrite, Urine Negative Negative POCT Leukocyte Esterase, Urine Negative Negative Test Strip Lot Number [id number] Test Strip Lot Expiration 07/2025 Urine Urine specimen obtained by clean catch procedure / Unknown 09/23/2024 10:54 AM EDT Liborio Weller MD POINT OF CARE TEST ENTER/EDIT ORDERABLES Edited Result - Final * HIV 1 & 2 Antibody/Antigen Screen (01/22/2019 9:57 AM EST) Pathologist [facility] HIV 1 Result NONREACTIVE Screening for HIV 1 and 2 antibodies is NONREACTIVE. No confirmatory testing is required. SUNQUEST 01/22/2019 9:57 AM EST 01/22/2019 12:12 PM EST Pradip Damico APRN, CNM LAB BLOOD ORDERABLES Fin al Result Performing Organization Address City/[facility] de Phone Number SUNQUEST * Hepatitis C Antibody (01/22/2019 9:57 AM EST) Pathologist [facility] Hepatitis C Antibody NEGATIVE Reference Range: Negative SUNQUEST 01/22/2019 9:57 AM EST 01/22/2019 12:12 PM EST Pradip Damico APRN, CNM LAB BLOOD ORDERABLES Fin al Result SUNQUEST from Last 3 Months or Most Recently Relevant to Health Maintenance Insurance [employer] [facility] MEDICAID Care Teams Electrical Tester Relationship Specialty Start Date End Date Norma Friedman APRN [address] [place] [address] PCP - General 09/23/24 Lizz Trinh, RN [facility] Registered Nurse Cardiology 09/26/24
--- OUTSIDE RECORDS SUMMARY | 2024-09-26 11:13 | XMS_ITS | Encounter Summary ---
Author Organization Healthcare Address [address] [place] [address] Care Team Providers Care Tumbling Instructor Name Role Phone Norma Friedman [employer] INSPECTOR Primary Care Provider [phone] Lizz Trinh RN Unavailable Unavailable Encounter Details Date Type Department Care Team (Latest Contact Info) Description 09/26/2024 Travel Social History Tobacco Use Types Packs/Day [...] more drinks on one occasion? Never 09/23/2024 [place] Depression Scale Answer Date Recorded [place] Depression Scale Total 0 09/23/2024 The [...] Description 10/24/2024 8:00 AM EDT Office Visit [facility] [place] [id number], [address] [place] [address] Nneka Block MD [address] [place] [address] 12/25/2024 1:00 PM EST Office Visit [facility] [place] [facility] Met[facility] [address], [address] [place] [address] documented as of this encounter Visit Diagnoses Not on filedocumented in this encounter Additional Health Concerns Assessment Noted Time A fall risk assessment has been complete d for the patient 09/26/2024 8:15 AM EDT A Body Mass Index follow-up plan has been documented for the patient 09/23/2024 8:28 PM EDT documented as of this encounter Care Teams Tumbling Instructor Relationship Specialty Start Date End Date Norma Friedman APRN [address] [place] [id number] PCP - General 09/23/24 Lizz Trinh, RN [facility] Registered Nurse Cardiology 09/26/24 documented as of this encounter
--- OUTSIDE RECORDS SUMMARY | 2024-09-26 11:13 | XMS_ITS | Encounter Summary ---
Author Organization Healthcare Address [address] [place] [address] Care Team Providers Care Script Reader Name Role Phone Unavailable Primary Care Provider Unavailabl e Encounter Details Date Type Department Care Team (Late Contact Info) Description 09/17/2024 Telephone Professional [facility] Nephrology, Bone & Mineral Metabolism [address], [address] [place] [address] Sherley Gold, UNARMED SECURITY OFFICER GS - 7 MAIN MEDICAL-SURGICAL Social History [...] Description 10/24/2024 8:00 AM EDT Office Visit [facility] [place] [address], [address] [place] [address] Nneka Block MD [address] [place] [address] 12/25/2024 1:00 PM EST Office Visit [facility] [address], [address] [place] [address] documented as of this encounter Visit Diagnoses Not on filedocumented in this encounter
--- OUTSIDE RECORDS SUMMARY | 2024-09-26 11:13 | XMS_ITS | Clinical Summary ---
Author Organization [facility] Address [address] [place] [address] Care Team Providers Care Field Recorder Name Role Phone Norma Friedman APRN Primary Care Provider + [phone] Allergies Active Allergy Reactions Criticality Noted Date [...] Date Type Department Care Team Description 5 Documentation [facility] LABOR DELIVERY [address] [place] [address] Christy Zabala RN 5 Results Follow-Up [facility] OBGYN [address] [place] [address] Rob Wharton MD 5 Telephone [facility] OBGYN [address]00 [facility] [address] [place] [address] Rob Wharton MD 5 10:00 AM EDT Routine [facility] OBGYN [address] [place] [address] Rob Wharton MD GA: 26w4d 5 Travel 5 Telephone [facility] OBGYN [address] [address] Rob Wharton MD 5 Telephone [facility] OBGYN [address] [place] [address] Rob Wharton MD 5 1:44 PM EDT Anesthesia Event [facility] ENDO SUITES [address] [place] [address] Akash Anguiano MD Lanham, John, CRNA 5 1:33 PM EDT - 5 2:05 PM EDT Surgery [facility] ENDO SUITES [address] [place] [address] Blu Alvarado MD ESOPHAGOGASTRODUODENOSCOPY [44801 (CPT )] 5 1:59 PM EDT - 5 4:28 PM EDT Hospital Encounter [facility] ANTEPARTUM [address] [place] [address] Rob Wharton MD Brunner, Mark I, MD Dysphagia, unspecified type (Primary Dx) Discharge Disposition: Home or Self Care 5 10:15 AM EDT Routine [facility] OBGYN [address] [place] [address] Jacey Mathews, THERMOPLASTIC TECHNICIAN GA: w 5 Telephone [facility] OBGYN [address] [place] [address] Jacey Mathews, THERMOPLASTIC TECHNICIAN 5 Travel 5 Patient Outreach [facility] LABOR DELIVERY [address] [place] [address] Christy Zabala RN 5 9:10 AM EDT Routine [facility] OBGYN [address]00 [facility] [address] [place] [address] Rob Wharton MD GA: 5 8:00 AM EDT Office Visit [facility] MATERNAL MEDICINE [address]00 [facility] [address] [place] [address] Sebastian Larsen MD History of prior with small for gestational age (Primary Dx) 5 7:44 AM EDT - 5 11:59 PM EDT Hospital Encounter [facility] US PER DIAG CTR [address] [place] [address] Kelly Delgado, THERMOPLASTIC TECHNICIAN care, antepartum, unspecified ; High risk due to history of labor, antepartum; History of prior with small for gestational age Discharge Disposition: Home or Self Care 5 Travel 5 Results Follow-Up [facility] OBGYN [address] [facility] [place] [address] [place] [address] Kelly Delgado APRN 5 10:10 AM EDT Routine [facility] OBGYN [address]00 [facility] [place] [address] [place] [address] Kelly Delgado, THERMOPLASTIC TECHNICIAN GA: 18w5d 5 9:30 AM EDT Ancillary Procedure [facility] OBGYN 1700 [facility] [place] [address] [place] [address] care in second trimester, unspecified 5 Travel 5 Telephone [facility] OBGYN 1700 [facility] [place] [address] [place] [address] Uriel Russ MD TRANSFER OF CARE REQ 5 10:15 PM EDT - 5 11:59 PM EDT Hospital Encounter [facility] LABOR DELIVERY [address] [place] [address] Rob Wharton MD Mirsky, Elizabeth, MD Discharge Disposition: Home or Self Care 5 Travel 5 Telephone [facility] OBGYN 1700 [facility] [address] [place] [address] Uriel Russ MD [facility], OB 5 Telephone [facility] OBGYN [address]00 [facility] [address] [place] [address] Uriel Russ MD [facility] 5 [facility]Visit [facility] [address] [place] [address] [place] [address] E-Visit, MD Toni 5 Results Follow-Up [facility] OBGYN [address]00 [facility] [address] [place] [address] Uriel Russ MD from Last 3 Months [...] oz pur e alcohol) [facility] Utilities Answer Date Recorded [...] hard at all 05/28/2024 [facility] [place] of Occupat ional Health - Occupational Stress [...] Visit [facility] GASTROENTEROLOGY [address] [facility] [address] [place] [address] Robbin Escalante MD [address] [facility] [address] [place] [address] Health Maintenance Due Date Last Done Comments Annual Gynecologic Pelvic and Breast Exam 1990 PAP SMEAR 2012 COVID-19 Vaccine (2 - season) 2023 05/04/2022 ANNUAL PHYSICAL 05/21/2024 [...] 08/20/2024 1:55 PM EDT Dysphagia, unspecified type OK ESOPHAGOGASTRODUODENOSCOP Y TRANSORAL DIAGNOSTIC 08/20/2024 1:44 PM EDT Dysphagia, unspecified type UPPER GI ENDOSCOPY 08/20/2024 1:09 PM EDT BASIC METABOLIC PANEL STAT 08/20/2024 5:25 AM EDT POTASSIUM STAT 08/19/2024 8:53 PM EDT ABORH 2ND SPECIMEN VERIFICATION STAT 08/19/2024 4:34 PM EDT NONSTRESS TEST Routine 08/19/2024 4:17 PM EDT [facility] Routine 08/19/2024 3:25 PM EDT [...] 10:02 AM EDT Multigravida in second trimester [facility] Routine 07/22/2024 9:10 AM [...] (NO CULTURE) Routine 07/02/2024 11:09 PM EDT HEPATITIS C ANTIBODY Routine 04/12/2024 from Last [...] 08/30/2024 6:09 AM EDT Performed at: [address] [id number] Polysomnographic Tech: Kevin Harman MD, Phone: [phone] Patient Fasting: N us Rob Wharton MD LAB BLOOD ORDERABLES Final Result [facility] (AMBULATORY) [address] [place] [address], [facility] [address] [place] [address], * (ABNORMAL) Comprehensive Metabolic Panel (08/29/2024 11:05 AM EDT) Only the most recent of2 resultswithin the time period is included. [facility] Glucose 72 65 - 99 mg/dL [...] - 08/30/2024 6:09 AM EDT Performed at: [address] [place] [id number] Polysomnographic Tech: Kevin Harman MD, Phone: [phone] Patient Fasting: N Rob Wharton MD LAB BLOOD ORDERABLES Final Result Performing Organization Address City/[facility]/ZIP Co de Phone Number [facility] (AMBULATORY) [address] [place] [address], [place] [phone] [facility] [address] [place] [address], [place] [phone] * (ABNORMAL) POC Urinalysis Dipstick (08/29/2024 10:13 AM EDT) Only the most recent of3 resultswithin the time period is included. [facility] Glucose, UA Negative Negative mg/dL [facility] Protein, POC Trace(A) Negative mg/dL [facility] Urine 08/29/2024 10:1 3 AM EDT Rob Wharton MD POINT OF CARE TEST OR DERABLES Final Result [facility]
[address] [place] [address], * BH AN ETT AIRWAY (08/20/2024 2:02 [...] bilaterally with symmetric chest rise and fall [facility] ANESTHESIA ORDERABLES Final Res ult * Tissue Pathology Exam (08/20/2024 1:55 PM EDT) Case Report Surgical Pathology Report Case: [id number] Authorizing Provider: Blu Alvarado MD Collected: 08/20/2024 01:55 PM Ordering Location: [facility] Received: 08/20/2024 02:14 PM ENDO SUITES Pathologist: Khalida Rhoades DO Specimen: Gastric, Antrum, antrum bx for path 08/22/2024 9:18 AM EDT [facility] Clinical Information Dysphagia, unspecified type 08/22/2024 9:18 AM EDT [facility] Final Diagnosis Stomach, antrum, biopsy: 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 pylori is negative (no organisms are identified) Negative for intestinal metaplasia, dysplasia, or malignancy 08/22/2024 9:18 AM EDT [facility]OR[facility] at 0918 EDT Gross Description 1. Gastric, Antrum. Received in formalin labeled antrum biopsy is a 0.4 x 0.2 x 0.2 cm pink-see soft tissue fragment submitted entirely in a single cassette. HDM 08/22/2024 9:18 AM EDT [facility] Microscopic Description The slides are reviewed and demonstrate histopathologic features supporting the above rendered diagnosis. 08/22/2024 9:18 AM EDT [facility] Tissue Pyloric antrum structure / Unknown 08/20/2024 1:55 PM EDT 08/20/2024 2:14 PM EDT Blu Alvarado MD PATHOLOGY/CYTOLOGY ORDERABLES Final Result [facility]OR[facility]ORY
[address] [place] [address], [place] [phone] * Upper GI Endoscopy (08/20/2024 1:09 PM EDT) us Blu Alvarado MD INTERFACE NEEDS Final Result * (ABNORMAL) Basic Metabolic Panel (08/20/2024 5:25 AM EDT) Glucose 84 65 - 99 mg/dL 08/20/2024 6:13 AM EDT [facility] BUN 2.3(L) 6.0 - 20.0 mg/dL 08/20/2024 6:13 AM EDT [facility] Creatinine 0.51(L) 0.57 - 1.00 mg/dL 08/20/2024 6:13 AM EDT [facility] Sodium 139 136 - 145 mmol/L 08/20/2024 6:13 AM EDT [facility] Potassium 3.5 3.5 - 5.2 mmol/L 08/20/2024 6:13 AM EDT [facility] Chloride 109(H) 98 - 107 mmol/L 08/20/2024 6:13 AM EDT [facility] CO2 23.5 22.0 - 29.0 mmol/L 08/20/2024 6:13 AM EDT [facility] Calcium 7.8(L) 8.6 - 10.5 mg/dL 08/20/2024 6:13 AM EDT [facility] BUN/Creatinine Ratio 4.5(L) 7.0 - 25.0 08/20/2024 6:13 AM EDT [facility] Anion Gap 6.5 5.0 - 15.0 mmol/L 08/20/2024 6:13 AM EDT [facility] eGFR 126.6 >60.0 mL/min/1.7 3 08/20/2024 6:13 AM EDT [facility] Blood Venipuncture / Unknown 08/20/2024 5:25 AM EDT 08/20/2024 5:46 AM EDT Narrative [facility] - 08/20/2024 6:13 AM EDT [...] MD LAB BLOOD ORDERABLES Final Resu lt [facility]OR[facility]ORY
[address] [place] [address], * (ABNORMAL) Potassium (08/19/2024 8:53 PM EDT) Potassium 2.7(L) 3.5 - 5.2 mmol/L 08/19/2024 9:20 PM EDT [facility] Blood Venipuncture / Unknown 08/19/2024 8:53 PM EDT 08/19/2024 9:04 PM EDT us Kt Fan DO LAB BLOOD ORDERABLES Final Result [facility]
[address] [place] [address], * ABO RH Specimen Verification (08/19/2024 4:34 PM EDT) ABO Type O 08/19/2024 7:39 PM EDT [facility] BB LABORATORY RH type Positive 08/19/2024 7:39 PM EDT [facility] BB LABORATORY Blood Venipuncture / Unknown 08/19/2024 4:34 PM EDT 08/19/2024 4:53 PM EDT us Rob Wharton MD BLOOD BANK TEST ORDER FRANCO Final Result [facility] LABORATORY
[address] [place] [address], * [facility] (08/19/2024 3:25 PM EDT) Only the most recent of2 resultswithin the time period is included. Anatomical Region Laterality Modality Ultrasound 08/19/2024 3:09 PM EDT Narrative 08/19/2024 4:54 PM EDT PAT NAME: CAROLE GIRARD MED REC#: [id number] DA: 1990 PAT GEND: F PAT TYPE: E EXAM TRAVIS: [id number] REF PHYS ROB WHARTON Comparison Studies The [...] EFW (oz) 9 oz EFW by: Hadlock ([id number]) Extended Cav. septi pel. tr 4.7 mm Clinic Manager 3.8 mm CM 7.5 mm 84% [...] Heart / Thorax 3-vessel view: Appears normal 4-uejdes-mpilhtx view: Appears normal Stomach: Appears normal Kidneys: [...] in 4wks for growth. Coding ======= Description: 33802-79 Follow Up Sql Report Analyst: RT Annetta Hartmann , [facility] Physician: Jo Chappell MD Electronically signed by: Jo Chappell MD at: 16:54 Procedure Note Jo Chappell MD - 08/19/2024 PAT NAME: GIRARDCAROLE QUINONES MED REC#: [id number] DA: [id number] PAT GEND: F PAT TYPE: E EXAM TRAVIS: [id number] REF PHYS ROB WHARTON Comparison Studies The findings of this study are compared to the prior ultrasound studydated 07/22/24 Patient Status Inpatient Indication ======== History of c/s x1. History of . Vaginal bleeding. Maternal Assessment Poovas041 cm Height (ft)5 ft Height (in)4 in Sljmzc94 kg Weight (lb)158 lb BMI27.31 kg/m Method ======= Transabdominal ultrasound examination. View: Limited by patient bodyhabitus ========= Love . Number of fetuses: 1 Dating ====== Method of dating:based on stated DUSTY GA by prior [id number] w + 1 d DUSTY by prior assessment:12/01/2024 Ultrasound examination on:08/19/2024 GA by U/S based upon:AC, BPD, Femur, HC GA by U/S24 w + 2 d DUSTY by U/S:12/07/2024 Previous dating:based on stated DUSTY, selected on 07/22/2024 Agreed DUSTY of previous datin12/01/2024 Assigned:based on stated DUSTY, selected on 08/19/2024 Assigned GA25 w + 1 d Assigned DUSTY:12/01/2024 [id number] d Biometry Standard BPD57.6 mm 23w 4d 5% Hadlock OFD81.6 mm 26w 4d 88% Jamal HC225.7 mm 24w 4d 13% Hadlock Cerebellum tr28.9 mm 25w 2d 62% Hill AC194.9 mm 24w 1d 15% Hadlock Femur44.9 mm 24w 6d 27% Hadlock Kevfjnb42.3 mm 25w 3d 50% Jamal HC / AC1.16 HJD099 g 24w 2d 16% Hadlock EFW (lb)1 lb EFW (oz)9 oz EFW by:Hadlock (PHS-[id number]-BH-FL) Extended Cav. septi pel. tr4.7 mm Vp3.8 mm CM7.5 mm 84% Nicolaides Head / Face / Neck Cephalic index0.71 <1% Nicolaides Extremities / Bony Struc FL / BPD0.78 FL / HC0.20 FL / AC0.23 Other Structures [id number] bpm General Evaluation Cardiac activity present. FHR [...] normal Heart / Thorax 3-vessel view:Appears normal 8-pvfykt-pnflzcd view:Appears normal Stomach:Appears normal Kidneys:Appears normal Bladder:Appears [...] office in 4wks for growth. Coding ======= Description:70722-79 Follow Up Sql Report Analyst: RT Annetta Hartmann , [facility] Physician: Jo Chappell MD Electronically signed by: Jo Chappell MD at: 16:54 us Kt Fan DO IMG US ORDERABLES Final Res ult * Urinalysis, Microscopic Only - Urine, Clean Catch (08/19/2024 3:02 PM EDT) Only the most recent of2 resultswithin the time period is included. RBC, UA 0-2 None Seen, 0-2 /HPF 08/19/2024 3:33 PM EDT [facility] WBC, UA 0-2 None Seen, 0-2 /HPF 08/19/2024 3:33 PM EDT [facility] Bacteria, UA None Seen None Seen /HPF 08/19/2024 3:33 PM EDT [facility] Squamous Epithelial Cells, UA 0-2 None Seen, 0-2 /HPF 08/19/2024 3:33 PM EDT [facility] Hyaline Casts, UA None Seen None Seen /LPF 08/19/2024 3:33 PM EDT [facility] Methodology Automated Microscopy 08/19/2024 3:33 PM EDT [facility] Urine Urine specimen obtained by clean catch procedure / Unknown Collection / Unknown 08/19/2024 3:02 PM EDT 08/19/2024 3:13 PM EDT us Kt Fan DO URINE ORDERABLES Final Resu lt [facility]
[address] [place] [address], [place] [phone] * (ABNORMAL) Urinalysis With Microscopic If Indicated (No Culture) - Urine, Clean Catch (08/19/2024 3:02 PM EDT) Only the most recent of2 resultswithin the time period is included. Color, UA Yellow Yellow, Straw 08/19/2024 3:33 PM EDT [facility] Appearance, UA Clear Clear 08/19/2024 3:33 PM EDT [facility] pH, UA >=9.0(H) 5.0 - 8.0 08/19/2024 3:33 PM EDT [facility] Specific [place], UA 1.018 1.005 - 1.030 08/19/2024 3:33 PM EDT [facility] Glucose, UA Negative Negative 08/19/2024 3:33 PM EDT [facility] Ketones, UA 15 mg/dL (1+)(A) Negative 08/19/2024 3:33 PM EDT [facility] Bilirubin, UA Negative Negative 08/19/2024 3:33 PM EDT [facility] Blood, UA Negative Negative 08/19/2024 3:33 PM EDT [facility] Protein, UA 30 mg/dL (1+)(A) Negative 08/19/2024 3:33 PM EDT [facility] Leuk Esterase, UA Negative Negative 08/19/2024 3:33 PM EDT [facility] Nitrite, UA Negative Negative 08/19/2024 3:33 PM EDT [facility] Urobilinogen, UA 1.0 E.U./dL 0.2 - 1.0 E.U./dL 08/19/2024 3:33 PM EDT [facility] Urine Urine specimen obtained by clean catch procedure / Unknown Collection / Unknown 08/19/2024 3:02 PM EDT 08/19/2024 3:13 PM EDT Kt Fan DO URINE ORDERABLES Final Resu lt [facility]
[address] [place] [address], * (ABNORMAL) CBC Auto Differential (08/19/2024 3:02 PM EDT) WBC 9.19 3.40 - 10.80 10*3/mm3 08/19/2024 3:23 PM EDT [facility] RBC 3.58(L) 3.77 - 5.28 10*6/mm3 08/19/2024 3:23 PM EDT [facility] Hemoglobin 10.5(L) 12.0 - 15.9 g/dL 08/19/2024 3:23 PM EDT [facility] Hematocrit 31.4(L) 34.0 - 46.6 % 08/19/2024 3:23 PM EDT [facility] MCV 87.7 79.0 - 97.0 fL 08/19/2024 3:23 PM EDT [facility] MCH 29.3 26.6 - 33.0 pg 08/19/2024 3:23 PM EDT [facility] MCHC 33.4 31.5 - 35.7 g/dL 08/19/2024 3:23 PM EDT [facility] RDW 13.4 12.3 - 15.4 % 08/19/2024 3:23 PM EDT [facility] RDW-SD 42.4 37.0 - 54.0 fl 08/19/2024 3:23 PM EDT [facility] MPV 12.0 6.0 - 12.0 fL 08/19/2024 3:23 PM EDT [facility] Platelets 241 140 - 450 10*3/mm3 08/19/2024 3:23 PM EDT [facility] Neutrophil % 66.8 42.7 - 76.0 % 08/19/2024 3:23 PM EDT [facility] Lymphocyte % 24.4 19.6 - 45.3 % 08/19/2024 3:23 PM EDT [facility] Monocyte % 7.6 5.0 - 12.0 % 08/19/2024 3:23 PM EDT [facility] Eosinophil % 0.7 0.3 - 6.2 % 08/19/2024 3:23 PM EDT [facility] Basophil % 0.2 0.0 - 1.5 % 08/19/2024 3:23 PM EDT [facility] Immature Grans % 0.3 0.0 - 0.5 % 08/19/2024 3:23 PM EDT [facility] Neutrophils, Absolute 6.14 1.70 - 7.00 10*3/mm3 08/19/2024 3:23 PM EDT [facility] Lymphocytes, Absolute 2.24 0.70 - 3.10 10*3/mm3 08/19/2024 3:23 PM EDT [facility] Monocytes, Absolute 0.70 0.10 - 0.90 10*3/mm3 08/19/2024 3:23 PM EDT [facility] Eosinophils, Absolute 0.06 0.00 - 0.40 10*3/mm3 08/19/2024 3:23 PM EDT [facility] Basophils, Absolute 0.02 0.00 - 0.20 10*3/mm3 08/19/2024 3:23 PM EDT [facility] Immature Grans, Absolute 0.03 0.00 - 0.05 10*3/mm3 08/19/2024 3:23 PM EDT [facility] nRBC 0.0 0.0 - 0.2 /100 WBC 08/19/2024 3:23 PM EDT [facility] Blood Line / Unknown 08/19/2024 3: 02 PM EDT 08/19/2024 3:10 PM EDT Kt Fan DO LAB BLOOD ORDERABLES Final Result [facility]
[address] [place] [address], [place] [phone] * Protein / Creatinine Ratio, Urine - [...] Resu lt [facility]
[address] [place] [address], [place] [phone] * Type & Screen (08/19/2024 3:02 PM EDT) ABO Type O 08/19/2024 3:51 PM EDT [facility]OR[facility] RH type Positive 08/19/2024 3:51 PM EDT [facility] Antibody Screen Negative 08/19/2024 3:51 PM EDT [facility] T&S Expiration Date 08/22/2024 11:59:59 PM 08/19/2024 3:51 PM EDT [facility] Blood Line / Unknown 08/19/2024 3: 02 PM EDT 08/19/2024 3:15 PM EDT us Kt Fan DO BLOOD BANK TEST ORDERABLES Edited Result - Final [facility]
[address] [place] [address], [place] [phone] * (ABNORMAL) Magnesium (08/19/2024 3:02 PM EDT) Magnesium 1.5(L) 1.6 - 2.6 mg/dL 08/19/2024 5:12 PM EDT [facility] Blood Line / Unknown 08/19/2024 3: 02 PM EDT 08/19/2024 3:10 PM EDT us Kt Fan DO LAB BLOOD ORDERABLES Final Result [facility]
[address] [place] [address], [place] [phone] * Lipase (08/19/2024 3:02 PM EDT) Lipase 13 13 - 60 U/L 08/19/2024 3:36 PM EDT [facility] Blood Line / Unknown 08/19/2024 3: 02 PM EDT 08/19/2024 3:10 PM EDT us Kt Fan DO LAB BLOOD ORDERABLES Final Result Performing Organization Address [facility]/ZIP Co de Phone Number [facility]
[address] [place] [address], [place] [phone] * Amylase (08/19/2024 3:02 PM EDT) Amylase 73 28 - 100 U/L 08/19/2024 3:36 PM EDT [facility] Blood Line / Unknown 08/19/2024 3: 02 PM EDT 08/19/2024 3:10 PM EDT us Kt Fan DO LAB BLOOD ORDERABLES Final Result [facility]
[address] [place] [address], * [place] Ob 14 + Weeks Single or First Gestation (07/05/2024 10:17 AM EDT) Anatomical Region Laterality Modality Body Ultrasound 07/05/2024 10:2 8 AM EDT Narrative 07/09/2024 7:02 PM EDT PAT NAME: CAROLE GIRARD MED REC#: [id number] DA: [id number] PAT GEND: F PAT TYPE: O EXAM TRAVIS: [id number] REF PHYS URIEL RUSS Telephoto Engineer Comments Still need heart views and PCI [...] EFW (oz) 9 oz EFW by: Hadlock ([id number]) Extended Clinic Manager 6.4 mm CM 3.3 mm 11% Nicolaides [...] Heart / Thorax 3-vessel view: not visualized 8-qqigeb-athnzar view: not visualized Diaphragm: Appears normal Diaphragm: [...] subsequent visit to complete the anatomic screening. Telephoto Engineer: Soo Harding RDMS Physician: Uriel Russ II, MD, FACOG Electronically signed by: Uriel Russ II, MD, FACOG at: 19:02 Procedure Note Uriel Russ MD - 07/09/2024 PAT NAME: CAROLE GIRARD MED REC#: [id number] DA: [id number] PAT GEND: F PAT TYPE: O EXAM TRAVIS: [id number] REF PHYS URIEL RUSS Telephoto Engineer Comments Still need heart views and PCI N/L, Kidneys, Legs suboptimal Indication ======== anatomy survey Comparison Studies There are no relevant prior studies to which this study is beingcompared Method ======= [place] E6, Transabdominal ultrasound examination. View: Suboptimal view:limited by early gestational age ========= Love . Number of fetuses: 1 Dating ====== Method of dating:based on stated DUSTY GA by prior [id number] w + 5 d DUSTY by prior [...] 67% Hadlock HC / AC1.13 20% Hadlock BQI428 g 18w 6d 56% Hadlock EFW (lb)0 lb EFW (oz)9 oz EFW by:Hadlock ([id number]) Extended Vp6.4 mm CM3.3 mm 11% Nicolaides Extremities / Bony Struc FL / BPD0.80 >99% Hadlock FL / HC0.20 98% Hadlock FL / AC0.23 89% Hadlock Other Structures JIT235 bpm Anatomy Cranium:Appears normal Lateral ventricles:Appears normal Choroid plexus:Appears normal Midline falx:Appears normal Cavum septi pellucidi:Appears normal Cerebellum:Appears normal Cisterna magna:Appears normal Lips:suboptimal Profile:Appears normal Nose:suboptimal 4-chamber view:not visualized RVOT view:not visualized LVOT view:not visualized Heart / Thorax 3-vessel view:not visualized 5-[id number]-aguzuwp view:not visualized Diaphragm:Appears normal Diaphragm:Intact Cord insertion:Appears [...] Structures Uterus / Cervix Uterus:Visualized Cervix:Visualized Cervical psnrxy19.6 mm Ovaries / Tubes / Adnexa Rt [...] a subsequent visit tocomplete the anatomic screening. Telephoto Engineer: Soo Harding RDMS Physician: Uriel Russ II, MD, FACOG Electronically signed by: Uriel Russ II, MD, FACOG at: 9:02 us Uriel Russ MD [facility] [place] ORDERABLES Final Result * Urine Culture [...] Comment:Urine Release to [facility] hospital [facility] (AMBUL[facility]) - 07/07/2024 3:35 AM EDT Performed at: - [address] [id number] Polysomnographic Tech: Michael Martinez PhD, Phone: [phone] us Kelly Delgado APRN MICROBIOLOGY - GENERAL ORDER FRANCO Final Result [facility] ([facility]) [address] [place] [address], [facility] [address] [place] [address], * Hepatitis C Antibody (04/12/2024) Hep C Virus Ab negative Blood us Historical Provider LAB BLOOD ORDERABLES Lena l Result from Last 3 Months or Most Recently Relevant to Health Maintenance Insurance [facility] Care Teams Field Recorder Relationship Specialty Start Date End Date Norma Friedman APRN [address] [place] G3 RAFAELA APPIAH [id number] PCP - General Family Medicine 05/14/24
--- OUTSIDE RECORDS SUMMARY | 2024-09-26 11:13 | XMS_ITS | Encounter Summary ---
Author Organization [facility] Address [address] [id number] Care Team Providers Care Hospital Aides And Assistants Teacher Name Role Phone Unavailable Primary Care Provider Unavailabl e Encounter Details Date Type Department Care Team (Late st Contact Info) Description 09/17/2024 Telephone Medical Office Building Obstetrics and Gynecology [address] [facility], [address] [place] [address] Josefina Shay RN [facility] [address] [place] [address] Social History Tobacco Use Types Packs/Day Years [...] recently had a full Nephrology work-up at [facility] that was negative and was not [...] Description 10/24/2024 8:00 AM EDT Office Visit [facility] [place] [address] [facility], [address] [place] [address] Nneka Block MD [address] [place] [address] 12/25/2024 1:00 PM EST Office Visit [facility] Nephrology, Bone & Mineral Metabolism [address] [facility], [address] [place] [address] documented as of this encounter Visit Diagnoses Not on filedocumented in this encounter
--- OUTSIDE RECORDS SUMMARY | 2024-09-26 11:13 | XMS_ITS | Encounter Summary ---
Author Organization Healthcare Address [address] [place] [address] Care Team Providers Care Programming Specialist Name Role Phone Unavailable Primary Care Provider Unavailabl e Reason for Referral * Consultation (Routine) - Closed Specialty Diagnoses / Procedures Referred By Contac t Referred To Contact Nephrology Diagnoses Hypokalemia Liborio Weller MD [address] [facility] [address] [place] [address] Phone: tel: fax: [facility] Nephrology, Bone & Mineral Metabolism [address] [facility], [address] [place] [address] Phone: tel: fax: Referral ID Status Reason Start Date Expiration Date V isits Requested Visits Authorized [id number] Closed Specialty Services Required 09/14/2024 03/16/2026 1 1 Scheduling Instructions Severe hypokalemia in the setting of Encounter Details Date Type Department Care Team (Late st Contact Info) Description 09/14/2024 Telephone [facility] Obstetrics & Gynecology [address] [place] [address] Susi Wren MD [address] [place] [address] Social History Tobacco Use Types [...] had an outpatient workup with Nephrology at [facility] that was negative, she was not [...] Description 10/24/2024 8:00 AM EDT Office Visit [facility] [place] [address] [facility], [address] [place] [address] Nneka Block MD [address] [place] [address] 12/25/2024 1:00 PM EST Office Visit [facility] Nephrology, Bone & Mineral Metabolism [address] [facility], [address] [place] [address] Scheduled Referrals Name Type Priority Associated Diagnoses Order Schedule Ambulatory referral to Nephrology Clinic Outpatient Referral Routine Hypokalemia 1 Occurrences starting 09/14/2024 until 03/18/2026 documented as of this encounter Visit Diagnoses Diagnosis Hypokalemia- Primary Hypopotassemia documented in this encounter
[2024-09-26 11:32] LABS: Alanine Aminotransferase 36 U/L (12-78); Albumin Level 3.7 g/dl (3.5-5.0); Albumin/Globulin Ratio 1.1 (1.1-1.8); Alkaline Phosphatase 91 U/L (38-126); Anion Gap 10.8 mEq/L (5-15); Aspartate Amino Transferase 48 U/L (14-36); Bilirubin,Total 0.7 mg/dl (0.2-1.3); Blood Urea Nitrogen 4 mg/dl (7-17); Calcium 9.0 mg/dl (8.4-10.2); Carbon Dioxide 30 mmol/L (22.0-30.0); Chloride 97 mmol/L (98-107); Creatinine,Serum 0.60 mg/dl (0.52-1.04); Estimated Glomerular Filt Rate 115 ml/min (>60); GFR (African American) 139 ML/MIN (>60); Globulin 3.5 g/dL (1.3-3.2); Glucose 77 mg/dl (74-100); Magnesium 1.2 mg/dl (1.6-2.3); Sodium 135 mmol/L (136-145); Total Protein,Serum 7.2 g/dl (6.3-8.2)
[2024-09-26 11:51] LABS: Potassium 2.8 mmoL/L (3.5-5.1)
[2024-09-26] MEDS: MAGNESIUM SULFATE IN WATER 2 GM/50 ML PIGGYBACK IV ×3 (13:00→14:52)
== END 2024-09-26 16:00 | disposition home or self-care (01) ==
LOC: INF 11:10
PROVIDERS: PCP Nurse Practitioner Family; Visit Provider Obstetrics & Gynecology
DX: E87.6 Hypokalemia (principal)
CPT/HCPCS: 80053; 83735; 96365; 96366; 96367; J3475; J3480

== ENCOUNTER 2024-09-28 06:45 | Outpatient (CLI) | payer OTHER, SELFPAY ==
--- OUTSIDE RECORDS SUMMARY | 2024-08-19 10:15 | XMS_ITS | Encounter Summary ---
[facility] Organization [facility] Address [address] [place] [address] Care Team Providers Care Cardiac Nurse Practitioner Name Role Phone Norma Friedman APRN Primary Care Provider + [phone] Reason for Visit * Reason Comments Routine Visit Encounter Details Date Type Department Care Team (Late st Contact Info) Description 08/19/2024 10:15 AM EDT Routine [facility] OBGYN [address] [place] [address] Jacey Mathews, RECEPTIONIST TELEPHONE OPERATOR [address] [place] [address] GA: 25w1d Social History Tobacco Use Types Packs/Day Years Used Date Smoking Tobacco: Never Smokeless Tobacco: Never Alcohol Use Standard Drinks/Week Comments Never 0 (1 standard drink = 0.6 oz pur e alcohol) [facility] Utilities Answer Date Recorded In the past 12 months has Who is [employer], gas, oil, or water [email or web address] threatened to shut off services in your [...] and heating? Not hard at all 05/28/2024 [facility] [place] [facility] Health - Occupational Stress Questionnaire Answer Date [...] GED or equivalent No 05/28/2024 Preferred Language Czech 05/28/2024 PHQ-2 Answer Date Recorded Patient Health [...] this encounter Progress Notes * Jacey Mathews, RECEPTIONIST TELEPHONE OPERATOR - 08/19/2024 10:15 AM EDT Images from [...] Visit [facility] GASTROENTEROLOGY [address] [facility] [address] [place] [address] Robbin Escalante MD [address] [facility] [address] [place] [address] documented as of this encounter Visit Diagnoses Diagnosis Vaginal bleeding in - Primary 25 weeks gestation of documented in this encounter Additional Health Concerns Assessment Noted Time PHQ-2 Depression Total Score: 2 05/28/19 25 4:39 PM EDT documented as of this encounter Care Teams Cardiac Nurse Practitioner Relationship Specialty Start Date End Date Norma Friedman APRN [address] [place] [address] [place] [id number] PCP - General Family Medicine 05/14/24 documented as of this encounter
--- OUTSIDE RECORDS SUMMARY | 2024-08-19 13:59 | XMS_ITS | Encounter Summary ---
[facility] Address [address] [place] [id number] Care Team Providers Care Senior Engineering Manager Name Role Phone Ivyashlyn Norma FERNÁNDEZ Primary Care Provider + [phone] Reason for Visit * Reason Comments Vaginal Bleeding * Auth/Cert (Routine) Specialty Diagnoses / Procedures Referred By Contleyla t Referred To Contact Referral ID Status Reason Start Date Expiration Date Visits Re quested Visits Authorized [id number] 1 1 Encounter Details Date Type Department Care Team (Late st Contact Info) Description 08/19/2024 1:59 PM EDT - 08/20/2024 4:28 PM EDT Hospital Encounter [facility] [address] [place] [phone] Rob Wharton MD [address] [facility] [address] [place] [address] Blu Alvarado MD [address] [facility] [address] [place] [address] Dysphagia, unspecified type (Primary Dx) Discharge Disposition: Home or Self Care Social History Tobacco Use Types Packs/Day Years Used Date Smoking Tobacco: Never Smokeless Tobacco: Never Alcohol Use Standard Drinks/Week Comments Never 0 (1 standard drink = 0.6 oz pur e alcohol) [facility] Utilities Answer Date Recorded In the past 12 months has [employer]Port, gas, oil, or water [employer] threatened to shut off services in your [...] and heating? Not hard at all 05/28/2024 [facility] [place] of Occupat ional Health - Occupational Stress [...] 1:23 PM EDT Polly Lacey RN * Dickens Suicide Severity Rating Scale (Screener/Recent Self-Report) Question [...] Labs beginning of week and f/u with nd Seng Test Results Pending at Discharge Pending Labs Order Current Status Tissue Pathology Exam In process Rob Wharton MD 08/20/24 15:36 EDT Time: Discharge <30 min documented in this encounter Discharge Instructions * Attachments The following attachments cannot be sent through Care Everywhere. * Second Trimester of (Eritrean) * Upper Endoscopy Adult Care After (Eritrean) documented in this encounter Medications at Time [...] 08/19/2024 RH Positive 08/19/2024 ABSCRN Negative 08/19/2024 [id number] non-reactive 04/12/2024 HEPCVIRUSABY negative 04/12/2024 URINECX Final [...] IUPC: Resting Tone: Resting Tone by IUPC: [place] Varina Units: Cervix: Exam by: Method: sterile vaginal [...] from the original note were not included. [facility] Obstetric History and Physical Referring Provider: [...] her third trimesters prior pregnancies(etiology unknown). Patient's ornamental plaster sticker is in [facility]. She states has never had a [...] IUPC: Resting Tone: Resting Tone by IUPC: [place] Varina Units: Laboratory Results: Lab Results (last 24 [...] AM EDTAssociated Order(s): IP CONSULT TO GASTROENTEROLOGY [facility] Gastroenterology Consult Referring Provider: Dr. Fan/Dr. Wharton [...] , await recommendations following EGD - consider BEEF RIBBER evaluation if no etiology for difficulty swallowing [...] from the original note were not included. [facility] Obstetric History and Physical Referring Provider: [...] her third trimesters prior pregnancies(etiology unknown). Patient's ornamental plaster sticker is in [facility]. She states has never had a [...] IUPC: Resting Tone: Resting Tone by IUPC: [place] Varina Units: Laboratory Results: Lab Results (last 24 [...] Visit [facility] [address] [facility] [address] [phone] Robbin Escalante MD [address] [facility] [address] [address] documented as of this encounter Procedures Procedure Name Priority Date/Time Associated Diagnosis Comments TISSUE PATHOLOGY EXAM Routine 08/20/2024 1:55 PM EDT Dysphagia, unspecified type NE ESOPHAGOGASTRODUODENOSCOP Y TRANSORAL DIAGNOSTIC 08/20/2024 1:44 PM EDT Dysphagia, unspecified type UPPER GI ENDOSCOPY 08/20/2024 1:09 PM EDT BASIC METABOLIC PANEL STAT 08/20/2024 5:25 AM EDT POTASSIUM STAT 08/19/2024 8:53 PM EDT ABORH 2ND SPECIMEN VERIFICATION STAT 08/19/2024 4:34 PM EDT NONSTRESS TEST Routine 08/19/2024 4:17 PM EDT [facility] Routine 08/19/2024 3:25 PM [...] EDT) Case Report Surgical Pathology Report Case: [id number] Authorizing Provider: Blu Alvarado MD Collected: 08/20/2024 01:55 PM Ordering Location: [facility] Received: 08/20/2024 02:14 PM ENDO SUITES Pathologist: Khalida Rhoades DO Specimen: Gastric, Antrum, antrum bx for path 08/22/2024 9:18 AM EDT [facility] Clinical Information Dysphagia, unspecified type 08/22/2024 9:18 AM EDT [facility] Final Diagnosis Stomach, antrum, biopsy: 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 pylori is negative (no organisms are identified) Negative for intestinal metaplasia, dysplasia, or malignancy 08/22/2024 9:18 AM EDT [facility] at 0918 EDT Gross Description 1. Gastric, Antrum. Received in formalin labeled antrum biopsy is a 0.4 x 0.2 x 0.2 cm pink-see soft tissue fragment submitted entirely in a single cassette. HDM 08/22/2024 9:18 AM EDT [facility] Microscopic Description The slides are reviewed and demonstrate histopathologic features supporting the above rendered diagnosis. 08/22/2024 9:18 AM EDT [facility] Tissue Pyloric antrum structure / Unknown 08/20/2024 1:55 PM EDT 08/20/2024 2:14 PM EDT us Blu lAvarado MD PATHOLOGY/CYTOLOGY ORDERABLES Final Result [facility]
[address] [place] [address], * Upper GI Endoscopy (08/20/2024 1:09 PM EDT) us Blu Alvarado MD INTERFACE NEEDS Final Result * (ABNORMAL) Basic Metabolic Panel (08/20/2024 5:25 AM EDT) Glucose 84 65 - 99 mg/dL 08/20/2024 6:13 AM EDT [facility] BUN 2.3(L) 6.0 - 20.0 mg/dL 08/20/2024 6:13 AM EDT [facility] Creatinine 0.51(L) 0.57 - 1.00 mg/dL 08/20/2024 6:13 AM EDT [facility] Sodium 139 136 - 145 mmol/L 08/20/2024 6:13 AM EDT [facility] Potassium 3.5 3.5 - 5.2 mmol/L 08/20/2024 6:13 AM EDT [facility] Chloride 109(H) 98 - 107 mmol/L 08/20/2024 6:13 AM EDT [facility] CO2 23.5 22.0 - 29.0 mmol/L 08/20/2024 6:13 AM EDT [facility] Calcium 7.8(L) 8.6 - 10.5 mg/dL 08/20/2024 6:13 AM EDT [facility] BUN/Creatinine Ratio 4.5(L) 7.0 - 25.0 08/20/2024 6:13 AM EDT [facility] Anion Gap 6.5 5.0 - 15.0 mmol/L 08/20/2024 6:13 AM T [facility] eGFR 126.6 >60.0 mL/min/1.7 3 08/20/2024 6:13 AM T [facility] Blood Venipuncture / Unknown 08/20/2024 5:25 AM EDT 08/20/2024 5:46 AM EDT [facility] - 08/20/2024 6:13 AM EDT [...] ORDERABLES Final Resu lt Performing Organization Address City/[facility]/ZIP Co de Phone Number [facility]
[address] [place] [address], * (ABNORMAL) Potassium (08/19/2024 8:53 PM EDT) Potassium 2.7(L) 3.5 - 5.2 mmol/L 08/19/2024 9:20 PM EDT [facility] Blood Venipuncture / Unknown 08/19/2024 8:53 PM EDT 08/19/2024 9:04 PM EDT Kt Fan DO LAB BLOOD ORDERABLES Final Result Performing Organization Address [facility] Co de Phone Number [facility]
[address] [place] [address], * ABO RH Specimen Verification (08/19/2024 4:34 PM EDT) ABO Type O 08/19/2024 7:39 PM EDT [facility] RH type Positive 08/19/2024 7:39 PM EDT [facility] Blood Venipuncture / Unknown 08/19/2024 4:34 PM EDT 08/19/2024 4:53 PM EDT Rob Wharton MD BLOOD BANK TEST ORDER FRANCO Final Result Performing Organization Address City/[facility]/ZIP Co de Phone Number [facility]
[address] [place] [address], * [facility] (08/19/2024 3:25 PM EDT) Anatomical Region Laterality Modality Ultrasound 08/19/2024 3:09 PM EDT Narrative 08/19/2024 4:54 PM EDT PAT NAME: CAROLE GIRARD MED REC#: [id number] DA: 1990 PAT GEND: F PAT TYPE: E EXAM TRAVIS: [id number] REF PHYS ROB WHARTON Comparison Studies The [...] EFW (oz) 9 oz EFW by: Hadlock ([id number]) Extended Cav. septi pel. tr 4.7 mm Lathmaker 3.8 mm CM 7.5 mm 84% Nicolaides [...] Heart / Thorax 3-vessel view: Appears normal 0-lzutuv-ardzisy view: Appears normal Stomach: Appears normal Kidneys: [...] in 4wks for growth. Coding ======= Description: [id number] Follow Up Windmill Technician: RT Annetta Hartmann , [facility] Physician: Jo Chappell MD Electronically signed by: Jo Chappell MD at: 16:54 Procedure Note Jo Chappell MD - 08/19/2024 PAT NAME: CAROLE GIRARD MED REC#: [id number] DA: 1990 PAT GEND: F PAT TYPE: E EXAM TRAVIS: [id number] REF PHYS ROB WHARTON Comparison Studies The findings of this study are compared to the prior ultrasound studydated 07/22/24 Patient Status Inpatient Indication ======== History of c/s x1. History of . Vaginal bleeding. Maternal Assessment Qvgkgl444 cm Height (ft)5 ft Height (in)4 in Miwbvo91 kg Weight (lb)158 lb BMI27.31 kg/m Method ======= Transabdominal ultrasound examination. View: Limited by patient bodyhabitus ========= Love . Number of fetuses: 1 Dating ====== Method of dating:based on stated DUSTY GA by prior [email or web address] w + 1 d DUSTY by prior assessment:12/01/2024 Ultrasound examination on:08/19/2024 GA by U/S based upon:AC, BPD, Femur, HC GA by U/S24 w + 2 d DUSTY by U/S:12/07/2024 Previous dating:based on stated DUSTY, selected on 07/22/2024 Agreed DUSTY of previous datin12/01/2024 Assigned:based on stated DUSTY, selected on 08/19/2024 Assigned GA25 w + 1 d Assigned DUSTY:12/01/2024 d Biometry Standard BPD57.6 mm 23w 4d 5% Hadlock OFD81.6 mm 26w 4d 88% Jamal HC225.7 mm 24w 4d 13% Hadlock Cerebellum tr28.9 mm 25w 2d 62% Hill AC194.9 mm 24w 1d 15% Hadlock Femur44.9 mm 24w 6d 27% Hadlock Budcnxg39.3 mm 25w 3d 50% Jamal HC / AC1.16 JAS218 g 24w 2d 16% Hadlock EFW (lb)1 lb EFW (oz)9 oz EFW by:Hadlock ([id number]) Extended Cav. septi pel. tr4.7 mm Vp3.8 mm CM7.5 mm 84% Nicolaides Head / Face / Neck Cephalic index0.71 <1% Nicolaides Extremities / Bony Struc FL / BPD0.78 FL / HC0.20 FL / AC0.23 Other Structures [id number] bpm General Evaluation Cardiac activity present. FHR [...] normal Heart / Thorax 3-vessel view:Appears normal 9-motvqm-luiutiv view:Appears normal Stomach:Appears normal Kidneys:Appears normal Bladder:Appears normal Gender:female Wants to know gender:yes Maternal Structures Uterus / Cervix Cervix:Visualized Approach:Transabdominal Cervical wonrsb58.9 mm Doppler Arterial Umbilical A PI1.01 32% [...] office in 4wks for growth. Coding ======= Description:[id number] Follow Up Windmill Technician: RT Annetta Hartmann , RDMS Physician: Jo Chappell MD Electronically signed by: Jo Chappell MD at: 16:54 us Kt Fan DO G US ORDERABLES Final Res ult * Protein / Creatinine Ratio, Urine - Urine, Clean Catch (08/19/2024 3:02 PM EDT) Protein/Creati nine Ratio, Urine 126.1 0.0 - 200.0 mg/G Crea 08/20/2024 12:47 AM EDT [facility] Creatinine, Urine 148.3 mg/dL 08/20/2024 12:47 AM EDT [facility] Total Protein, Urine 18.7 mg/dL 08/20/2024 12:47 AM EDT [facility] Urine Urine specimen obtained by clean catch procedure / Unknown Collection / Unknown 08/19/2024 3:02 PM EDT 08/19/2024 4:26 PM EDT Kt Fan URINE ORDERABLES Final Resu lt [facility]
[address] [place] [address], [place] [phone] * (ABNORMAL) Magnesium (08/19/2024 3:02 PM EDT) Magnesium 1.5(L) 1.6 - 2.6 mg/dL 08/19/2024 5:12 PM EDT [facility] Blood Line / Unknown 08/19/2024 3: 02 PM EDT 08/19/2024 3:10 PM EDT Kt Fan DO LAB BLOOD ORDERABLES Final Result [facility]
[address] [place] [address], [place] [phone] * Urinalysis, Microscopic Only - Urine, Clean Catch (08/19/2024 3:02 PM EDT) RBC, UA 0-2 None Seen, 0-2 /HPF 08/19/2024 3:33 PM EDT [facility] WBC, UA 0-2 None Seen, 0-2 /HPF 08/19/2024 3:33 PM EDT [facility] Bacteria, UA None Seen None Seen /HPF 08/19/2024 3:33 PM EDT [facility] Squamous Epithelial Cells, UA 0-2 None Seen, 0-2 /HPF 08/19/2024 3:33 PM EDT [facility] Hyaline Casts, UA None Seen None Seen /LPF 08/19/2024 3:33 PM EDT [facility] Methodology Automated Microscopy 08/19/2024 3:33 PM EDT [facility] Urine Urine specimen obtained by clean catch procedure / Unknown Collection / Unknown 08/19/2024 3:02 PM EDT 08/19/2024 3:13 PM EDT us Kt Fan DO URINE ORDERABLES Final Resu lt [facility]
[address] [place] [address], * (ABNORMAL) CBC Auto Differential (08/19/2024 3:02 PM EDT) WBC 9.19 3.40 - 10.80 10*3/mm3 08/19/2024 3:23 PM EDT [facility] RBC 3.58(L) 3.77 - 5.28 10*6/mm3 08/19/2024 3:23 PM EDT [facility] Hemoglobin 10.5(L) 12.0 - 15.9 g/dL 08/19/2024 3:23 PM EDT [facility] Hematocrit 31.4(L) 34.0 - 46.6 % 08/19/2024 3:23 PM EDT [facility] MCV 87.7 79.0 - 97.0 fL 08/19/2024 3:23 PM EDT [facility] MCH 29.3 26.6 - 33.0 pg 08/19/2024 3:23 PM EDT [facility] MCHC 33.4 31.5 - 35.7 g/dL 08/19/2024 3:23 PM EDT [facility] RDW 13.4 12.3 - 15.4 % 08/19/2024 3:23 PM EDT [facility] RDW-SD 42.4 37.0 - 54.0 fl 08/19/2024 3:23 PM EDT [facility] MPV 12.0 6.0 - 12.0 fL 08/19/2024 3:23 PM EDT [facility] Platelets 241 140 - 450 10*3/mm3 08/19/2024 3:23 PM EDT [facility] Neutrophil % 66.8 42.7 - 76.0 % 08/19/2024 3:23 PM EDT [facility] Lymphocyte % 24.4 19.6 - 45.3 % [facility] Monocyte % 7.6 5.0 - 12.0 % [facility]2024 [facility] Eosinophil % 0.7 0.3 - 6.2 % 08/19/2024 3:[facility] Basophil % 0.2 0.0 - 1.5 % [facility]/19[facility]2024 3:[facility] Immature Grans % 0.3 0.0 - 0.5 % 08/19/2024 3:23 [facility] Neutrophils, Absolute 6.14 1.70 - 7.00 10*3/mm3 08/19/2024 3:[facility] Lymphocytes, Absolute 2.24 0.70 - 3.10 10*3/mm3 08/19/2024 3:23 PM EDT [facility] Monocytes, Absolute 0.70 0.10 - 0.90 10*3/mm3 08/19/2024 3:23 PM EDT [facility] Eosinophils, Absolute 0.06 0.00 - 0.40 10*3/mm3 08/19/2024 3:[facility] Basophils, Absolute 0.02 0.00 - 0.20 10*3/mm3 08/19/2024 3:23 PM EDT [facility] Immature Grans, Absolute 0.03 0.00 - 0.05 10*3/mm3 08/19/2024 3:23 PM EDT [facility] nRBC 0.0 0.0 - 0.2 /100 WBC 08/19/2024 3:23 PM EDT [facility] Blood Line / Unknown 08/19/2024 3: 02 PM EDT 08/19/2024 3:10 PM EDT Kt Fan DO LAB BLOOD ORDERABLES Final Result [facility]
[address] [place] [address], * (ABNORMAL) Urinalysis With Microscopic If Indicated (No Culture) - Urine, Clean Catch (08/19/2024 3:02 PM EDT) Color, UA Yellow Yellow, Straw 08/19/2024 3:33 PM EDT [facility] Appearance, UA Clear Clear 08/19/2024 3:33 PM EDT [facility] pH, UA >=9.0(H) 5.0 - 8.0 08/19/2024 3:33 PM EDT [facility] Specific Shafter, UA 1.018 1.005 - 1.030 08/19/2024 3:33 PM EDT [facility] Glucose, UA Negative Negative 08/19/2024 3:33 PM EDT [facility] Ketones, UA 15 mg/dL (1+)(A) Negative 08/19/2024 3:33 PM EDT [facility] Bilirubin, UA Negative Negative 08/19/2024 3:33 PM EDT [facility] Blood, UA Negative Negative 08/19/2024 3:33 PM EDT [facility] Protein, UA 30 mg/dL (1+)(A) Negative 08/19/2024 3:33 PM EDT [facility] Leuk Esterase, UA Negative Negative 08/19/2024 3:33 PM EDT [facility] Nitrite, UA Negative Negative 08/19/2024 3:33 PM EDT [facility] Urobilinogen, UA 1.0 E.U./dL 0.2 - 1.0 E.U./dL 08/19/2024 3:33 PM EDT [facility] Urine Urine specimen obtained by clean catch procedure / Unknown Collection / Unknown 08/19/2024 3:02 PM EDT 08/19/2024 3:13 PM EDT us Kt Fan DO URINE ORDERABLES Final Resu lt Performing Organization Address City/[facility]/ZIP Co de Phone Number [facility]
[address] [place] [address], [place] [phone] * Amylase (08/19/2024 3:02 PM EDT) Amylase 73 28 - 100 U/L 08/19/2024 3:36 PM EDT [facility] Blood Line / Unknown 08/19/2024 3: 02 PM EDT 08/19/2024 3:10 PM EDT us Kt Fan DO LAB BLOOD ORDERABLES Final Result Performing Organization Address [facility] Co de Phone Number [facility]
[address] [place] [address], [place] [phone] * Lipase (08/19/2024 3:02 PM EDT) Lipase 13 13 - 60 U/L 08/19/2024 3:36 PM EDT [facility] Blood Line / Unknown 08/19/2024 3: 02 PM EDT 08/19/2024 3:10 PM EDT us Kt Fan DO LAB BLOOD ORDERABLES Final Result Performing Organization Address City/[facility]/ZIP Co de Phone Number [facility]
[address] [place] [address], * (ABNORMAL) Comprehensive Metabolic Panel (08/19/2024 3:02 PM EDT) [facility] Glucose 75 65 - 99 mg/dL 08/19/2024 3:38 PM EDT [facility] BUN 3.6(L) 6.0 - 20.0 mg/dL 08/19/2024 3:38 PM EDT [facility] Creatinine 0.51(L) 0.57 - 1.00 mg/dL 08/19/2024 3:38 PM EDT [facility] Sodium 137 136 - 145 mmol/L 08/19/2024 3:38 PM EDT [facility] Potassium 2.6(LL) 3.5 - 5.2 mmol/L 08/19/2024 3:38 PM EDT [facility] Comment:Specimen hemolyzed. Result may be falsely elevated. Chloride 99 98 - 107 mmol/L 08/19/2024 3:38 PM EDT [facility] CO2 24.2 22.0 - 29.0 mmol/L 08/19/2024 3:38 PM EDT [facility] Calcium 8.8 8.6 - 10.5 mg/dL 08/19/2024 3:38 PM EDT [facility] Total Protein 6.6 6.0 - 8.5 g/dL 08/19/2024 3:38 PM EDT [facility] Albumin 3.4(L) 3.5 - 5.2 g/dL 08/19/2024 3:38 PM EDT [facility] ALT (SGPT) 10 1 - 33 U/L 08/19/2024 3:38 PM EDT [facility] AST (SGOT) 22 1 - 32 U/L 08/19/2024 3:38 PM EDT [facility] Alkaline Phosphatase 64 39 - 117 U/L 08/19/2024 3:38 PM EDT [facility] Total Bilirubin 0.5 0.0 - 1.2 mg/dL 08/19/2024 3:38 PM EDT [facility] Globulin 3.2 gm/dL 08/19/2024 3:38 PM EDT [facility] Comment:Calculated Result A/G Ratio 1.1 g/dL 08/19/2024 3:38 PM EDT [facility] BUN/Creatinine Ratio 7.1 7.0 - 25.0 08/19/2024 3:38 PM EDT [facility] Anion Gap 13.8 5.0 - 15.0 mmol/L 08/19/2024 3:38 PM EDT [facility] eGFR 126.6 >60.0 mL/min/1.7 3 08/19/2024 3:38 PM EDT [facility] Blood Line / Unknown 08/19/2024 3: 02 PM EDT 08/19/2024 3:10 PM EDT Narrative [facility] - 08/19/2024 3:38 PM EDT [...] Fan DO LAB BLOOD ORDERABLES Final Result [facility]
[address] [place] [address], * Type & Screen (08/19/2024 3:02 PM EDT) ABO Type O 08/19/2024 3:51 PM EDT [facility] RH type Positive 08/19/2024 3:51 PM EDT [facility] Antibody Screen Negative 08/19/2024 3:51 PM EDT [facility] T&S Expiration Date 08/22/2024 11:59:59 PM 08/19/2024 3:51 PM EDT [facility] Blood Line / Unknown 08/19/2024 3: 02 PM EDT 08/19/2024 3:15 PM EDT Kt Fan DO BLOOD BANK TEST ORDERABLES Edited Result - Final [facility]
[address] [place] [address], documented in this encounter Visit Diagnoses Diagnosis [...] or patient unable to swallow. Given 08/20/2024 6 :08 AM EDT 4 mg Given 08/19/2024 7:03 [...] as of this encounter Care Teams Senior Engineering Manager Relationship Specialty Start Date End Date Norma Friedman APRN [address] [place] G3 RAFAELA APPIAH [address] PCP - General Family Medicine 05/14/24 documented as of this encounter
--- OUTSIDE RECORDS SUMMARY | 2024-08-20 13:33 | XMS_ITS | Encounter Summary ---
[facility] Address [address] [place] [address] Care Team Providers Care Pipe Setter Name Role Phone Norma Friedman APRN Primary Care Provider + [phone] Reason for Visit * Reason Comments Vaginal Bleeding * Auth/Cert (Routine) Specialty Diagnoses / Procedures Referred By Tarik t Referred To Contact Referral ID Status Reason Start Date Expiration Date Visits Re quested Visits Authorized [id number] 1 1 Encounter Details Date Type Department Care Team (Late st Contact Info) Description 08/20/2024 1:33 PM EDT - 08/20/2024 2:05 PM EDT Surgery [facility] [address] [place] [address] Blu Alvarado MD [address] [facility] [address] [place] [address] ESOPHAGOGASTRODUODENOSCOPY [61476 (CPT )] Social History Tobacco Use Types Packs/Day Years Used Date Smoking Tobacco: Never Smokeless Tobacco: Never Alcohol Use Standard Drinks/Week Comments Never 0 (1 standard drink = 0.6 oz pur e alcohol) [facility] Utilities Answer Date Recorded In [...] and heating? Not hard at all 05/28/2024 [facility] - Occupational Stress Questionnaire Answer Date [...] 1:23 PM EDT Polly Lacey RN * [place]flower Suicide Severity Rating Scale (Screener/Recent Self-Report) Question [...] [facility] Pending at Discharge Pending Labs [...] 08/19/2024 RH Positive 08/19/2024 ABSCRN Negative 08/19/2024 [id number] non-reactive 04/12/2024 HEPCVIRUSABY negative 04/12/2024 URINECX Final [...] IUPC: Resting Tone: Resting Tone by IUPC: [place] Units: Cervix: Exam by: Method: sterile vaginal [...] from the original note were not included. [facility] Obstetric History and Physical Referring Provider: [...] her third trimesters prior pregnancies(etiology unknown). 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 She states has never [...] IUPC: Resting Tone: Resting Tone by IUPC: [place] Units: Laboratory Results: Lab Results (last 24 [...] AM EDTAssociated Order(s): IP CONSULT TO GASTROENTEROLOGY [facility] Gastroenterology Consult Referring Provider: Dr. Fan/Dr. Wharton [...] expresses concern regarding recent CT scan at [facility] revealing a hiatal hernia. CT scan done prior to most recent due to ovarian cyst and incidentally revealed hiatal hernia. She reports chronic gastrointestinal symptoms. Review of medical record revealed prior GI referral due to blood per rectum. She reports colonoscopy in 2020 at outside facility that revealed diverticulosis and benign colon polyp. She is currently established with provider at [facility] for gastroenterology care she [...] , await recommendations following EGD - consider SCOUT EXECUTIVE evaluation if no etiology for difficulty swallowing [...] from the original note were not included. [facility] Obstetric History and Physical Referring Provider: [...] her third trimesters prior pregnancies(etiology unknown). 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 She states has never [...] IUPC: Resting Tone: Resting Tone by IUPC: [place] Units: Laboratory Results: Lab Results (last 24 [...] Description 01/20/2025 3:30 PM EST Office Visit [facility] GASTROENTEROLOGY [address] [phone] Robbin Escalante MD [address] [address] documented as of this encounter Procedures Procedure Name Priority Date/Time Associated Diagnosis Comments TISSUE PATHOLOGY EXAM Routine 08/20/2024 1:55 PM EDT Dysphagia, unspecified type [place] ESOPHAGOGASTRODUODENOSCOP Y TRANSORAL DIAGNOSTIC 08/20/2024 1:44 PM EDT Dysphagia, unspecified type UPPER GI ENDOSCOPY 08/20/2024 1:09 PM EDT BASIC METABOLIC PANEL STAT 08/20/2024 5:25 AM EDT POTASSIUM STAT 08/19/2024 8:53 PM EDT ABORH 2ND SPECIMEN VERIFICATION STAT 08/19/2024 4:34 PM EDT NONSTRESS TEST Routine 08/19/2024 4:17 PM EDT [facility] Routine 08/19/2024 3:25 PM [...] EDT) Case Report Surgical Pathology Report Case: [id number] Authorizing Provider: Blu Alvarado MD Collected: 08/20/2024 01:55 PM Ordering Location: [facility] Received: 08/20/2024 02:14 PM ENDO SUITES Pathologist: Khalida Rhoades DO Specimen: Gastric, Antrum, antrum bx for path 08/22/2024 9:18 AM EDT [facility] Clinical Information Dysphagia, unspecified type 08/22/2024 9:18 AM EDT [facility] Final Diagnosis Stomach, antrum, biopsy: 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 pylori is negative (no organisms are identified) Negative for intestinal metaplasia, dysplasia, or malignancy 08/22/2024 9:18 AM EDT [facility] at 0918 EDT Gross Description 1. Gastric, Antrum. Received in formalin labeled antrum biopsy is a 0.4 x 0.2 x 0.2 cm pink-see soft tissue fragment submitted entirely in a single cassette. HDM 08/22/2024 9:18 AM EDT [facility] Microscopic Description The slides are reviewed and demonstrate histopathologic features supporting the above rendered diagnosis. 08/22/2024 9:18 AM EDT [facility] Tissue Pyloric antrum structure / Unknown 08/20/2024 1:55 PM EDT 08/20/2024 2:14 PM EDT us Blu Alvarado MD PATHOLOGY/CYTOLOGY ORDERABLES Final Result [facility]
[address] [place] [address], * Upper GI Endoscopy (08/20/2024 1:09 PM EDT) us Blu Alvarado MD INTERFACE NEEDS Final Result * (ABNORMAL) Basic Metabolic Panel (08/20/2024 5:25 AM EDT) Glucose 84 65 - 99 mg/dL 08/20/2024 6:13 AM EDT [facility] BUN 2.3(L) 6.0 - 20.0 mg/dL 08/20/2024 6:13 AM T [facility] Creatinine 0.51(L) 0.57 - 1.00 mg/dL 08/20/2024 6:13 AM [facility] Sodium 139 136 - 145 mmol/L 08/20/2024 6:13 AM EDT [facility] Potassium 3.5 3.5 - 5.2 mmol/L 08/20/2024 6:13 AM EDT [facility] Chloride 109(H) 98 - 107 mmol/L 08/20/2024 6:13 AM [facility] CO2 23.5 22.0 - 29.0 mmol/L 08/20/2024 6:13 AM [facility] Calcium 7.8(L) 8.6 - 10.5 mg/dL 08/20/2024 6:13 AM [facility] BUN/Creatinine Ratio 4.5(L) 7.0 - 25.0 08/20/2024 6:13 AM [facility] Anion Gap 6.5 5.0 - 15.0 mmol/L 08/20/2024 6:13 AM [facility] eGFR 126.6 >60.0 mL/min/1.7 3 08/20/2024 6:13 AM [facility] Blood Venipuncture / Unknown 08/20/2024 5:25 AM EDT 08/20/2024 5:46 AM T [facility] - 08/20/2024 6:13 [...] ORDERABLES Final Resu lt Performing Organization Address City/[facility]/ZIP Co de Phone Number [facility]
[address] [place] [address], * (ABNORMAL) Potassium (08/19/2024 8:53 PM EDT) Potassium 2.7(L) 3.5 - 5.2 mmol/L 08/19/2024 9:20 PM EDT [facility] Blood Venipuncture / Unknown 08/19/2024 8:53 PM EDT 08/19/2024 9:04 PM EDT Kt Fan DO LAB BLOOD ORDERABLES Final Result Performing Organization Address [facility] Co de Phone Number [facility]
[address] [place] [address], * ABO RH Specimen Verification (08/19/2024 4:34 PM EDT) ABO Type O 08/19/2024 7:39 PM EDT [facility] RH type Positive 08/19/2024 7:39 PM EDT [facility] Blood Venipuncture / Unknown 08/19/2024 4:34 PM EDT 08/19/2024 4:53 PM EDT Rob Wharton MD BLOOD BANK TEST ORDER FRANCO Final Result Performing Organization Address City/[facility]/ZIP Co de Phone Number [facility]
[address] [place] [address], * [facility] (08/19/2024 3:25 PM EDT) Anatomical Region Laterality Modality Ultrasound 08/19/2024 3:09 PM EDT Narrative 08/19/2024 4:54 PM EDT PAT NAME: CAROLE GIRARD MED REC#: [id number] DA: 1990 PAT GEND: F PAT TYPE: E EXAM TRAVIS: [id number] REF PHYS ROB WHARTON Comparison Studies The [...] EFW (oz) 9 oz EFW by: Hadlock (YNL-PM-PE-FL) Extended Cav. septi pel. tr 4.7 mm Strip Picker 3.8 mm CM 7.5 mm 84% Nicolaides [...] Heart / Thorax 3-vessel view: Appears normal 8-mcunyz-dbzygfx view: Appears normal Stomach: Appears normal Kidneys: [...] in 4wks for growth. Coding ======= Description: 09083-50 Follow Up [employer]: Alison Verduzco RT R , [place] Physician: Jo Chappell MD Electronically signed by: Jo Chappell MD at: 16:54 Procedure Note Jo Chappell MD - 08/19/2024 PAT NAME: CAROLE GIRARD MED REC#: [id number] DA: [id number] PAT GEND: F PAT TYPE: E EXAM TRAVIS: [id number] REF PHYS ROB WHARTON Comparison Studies The findings of this study are compared to the prior ultrasound studydated 07/22/24 Patient Status Inpatient Indication ======== History of c/s x1. History of . Vaginal bleeding. Maternal Assessment [id number] cm Height (ft)5 ft Height (in)4 in Rbbrtu36 kg Weight (lb)158 lb BMI27.31 kg/m Method ======= Transabdominal ultrasound examination. View: Limited by patient bodyhabitus ========= Love . Number of fetuses: 1 Dating ====== Method of dating:based on stated DUSTY GA by prior [id number] w + 1 d DUSTY by prior assessment:12/01/2024 Ultrasound examination on:08/19/2024 GA by U/S based upon:AC, BPD, Femur, HC GA by U/S24 w + 2 d DUSTY by U/S:12/07/2024 Previous dating:based on stated DUSTY, selected on 07/22/2024 Agreed DUSTY of previous datin12/01/2024 Assigned:based on stated DUSTY, selected on 08/19/2024 Assigned GA25 w + 1 d Assigned DUSTY:12/01/2024 [id number] d Biometry Standard BPD57.6 mm 23w 4d 5% Hadlock OFD81.6 mm 26w 4d 88% Jamal HC225.7 mm 24w 4d 13% Hadlock Cerebellum tr28.9 mm 25w 2d 62% Hill AC194.9 mm 24w 1d 15% Hadlock Femur44.9 mm 24w 6d 27% Hadlock Uyxlqyg10.3 mm 25w 3d 50% Jamal HC / AC1.16 LIT089 g 24w 2d 16% Hadlock EFW (lb)1 lb EFW (oz)9 oz EFW by:Hadlock (YSR-TV-AY-FL) Extended Cav. septi pel. tr4.7 mm Vp3.8 mm CM7.5 mm 84% Nicolaides Head / Face / Neck Cephalic index0.71 <1% Nicolaides Extremities / Bony Struc FL / BPD0.78 FL / HC0.20 FL / AC0.23 Other Structures [id number] bpm General Evaluation Cardiac activity present. FHR [...] normal Heart / Thorax 3-vessel view:Appears normal 4-zfvwhj-zjddacm view:Appears normal Stomach:Appears normal Kidneys:Appears normal Bladder:Appears normal Gender:female Wants to know gender:yes Maternal Structures Uterus / Cervix Cervix:Visualized Approach:Transabdominal Cervical pipzmp11.9 mm Doppler Arterial Umbilical A PI1.01 32% [...] office in 4wks for growth. Coding ======= Description:06436-13 Follow Up [employer]: RT Annetta Hartmann , [facility] Physician: Jo Chappell MD Electronically signed by: Jo Chappell MD at: 16:54 us Kt Fan DO [facility] US ORDERABLES Final Res ult * Protein / Creatinine Ratio, Urine - Urine, Clean Catch (08/19/2024 3:02 PM EDT) Protein/Creati nine Ratio, Urine 126.1 0.0 - 200.0 mg/G Crea 08/20/2024 12:47 AM EDT [facility] Creatinine, Urine 148.3 mg/dL 08/20/2024 12:47 AM EDT [facility] Total Protein, Urine 18.7 mg/dL 08/20/2024 12:47 AM EDT [facility] Urine Urine specimen obtained by clean catch procedure / Unknown Collection / Unknown 08/19/2024 3:02 PM EDT 08/19/2024 4:26 PM EDT Kt Fan DO URINE ORDERABLES Final Resu lt [facility]
[address] [place] [address], [place] [phone] * (ABNORMAL) Magnesium (08/19/2024 3:02 PM EDT) Magnesium 1.5(L) 1.6 - 2.6 mg/dL 08/19/2024 5:12 PM EDT [facility] Blood Line / Unknown 08/19/2024 3: 02 PM EDT 08/19/2024 3:10 PM EDT Kt Fan DO LAB BLOOD ORDERABLES Final Result Performing Organization Address City/[facility]/ZIP Co de Phone Number [facility]
[address] [place] [address], [place] [phone] * Urinalysis, Microscopic Only - Urine, Clean Catch (08/19/2024 3:02 PM EDT) RBC, UA 0-2 None Seen, 0-2 /HPF 08/19/2024 3:33 PM EDT [facility] WBC, UA 0-2 None Seen, 0-2 /HPF 08/19/2024 3:33 PM EDT [facility] Bacteria, UA None Seen None Seen /HPF 08/19/2024 3:33 PM EDT [facility] Squamous Epithelial Cells, UA 0-2 None Seen, 0-2 /HPF 08/19/2024 3:33 PM EDT [facility] Hyaline Casts, UA None Seen None Seen /LPF 08/19/2024 3:33 PM EDT [facility] Methodology Automated Microscopy 08/19/2024 3:33 PM EDT [facility] Urine Urine specimen obtained by clean catch procedure / Unknown Collection / Unknown 08/19/2024 3:02 PM EDT 08/19/2024 3:13 PM EDT Kt Fan DO URINE ORDERABLES Final Resu lt [facility]
[address] [place] [address], * (ABNORMAL) CBC Auto Differential (08/19/2024 3:02 PM EDT) WBC 9.19 3.40 - 10.80 10*3/mm3 08/19/2024 3:23 PM EDT [facility] RBC 3.58(L) 3.77 - 5.28 10*6/mm3 08/19/2024 3:23 PM EDT [facility] Hemoglobin 10.5(L) 12.0 - 15.9 g/dL 08/19/2024 3:23 PM EDT [facility] Hematocrit 31.4(L) 34.0 - 46.6 % 08/19/2024 3:23 PM EDT [facility] MCV 87.7 79.0 - 97.0 fL 08/19/2024 3:23 PM EDT [facility] MCH 29.3 26.6 - 33.0 pg 08/19/2024 3:23 PM EDT [facility] MCHC 33.4 31.5 - 35.7 g/dL 08/19/2024 3:23 PM EDT [facility] RDW 13.4 12.3 - 15.4 % 08/19/2024 3:23 PM EDT [facility] RDW-SD 42.4 37.0 - 54.0 fl 08/19/2024 3:23 PM EDT [facility] MPV 12.0 6.0 - 12.0 fL 08/19/2024 3:23 PM EDT [facility] Platelets 241 140 - 450 10*3/mm3 08/19/2024 3:23 PM EDT [facility] Neutrophil % 66.8 42.7 - 76.0 % 08/19/2024 3:23 PM EDT [facility] Lymphocyte % 24.4 19.6 - 45.3 % 08/19/2024 3:23 PM EDT [facility] Monocyte % 7.6 5.0 - 12.0 % 08/19/2024 3:23 PM EDT [facility] Eosinophil % 0.7 0.3 - 6.2 % 08/19/2024 3:23 PM EDT [facility] Basophil % 0.2 0.0 - 1.5 % 08/19/2024 3:23 PM EDT [facility] Immature Grans % 0.3 0.0 - 0.5 % 08/19/2024 3:23 PM EDT [facility] Neutrophils, Absolute 6.14 1.70 - 7.00 10*3/mm3 08/19/2024 3:23 PM EDT [facility] Lymphocytes, Absolute 2.24 0.70 - 3.10 10*3/mm3 08/19/2024 3:23 PM EDT [facility] Monocytes, Absolute 0.70 0.10 - 0.90 10*3/mm3 08/19/2024 3:23 PM EDT [facility] Eosinophils, Absolute 0.06 0.00 - 0.40 10*3/mm3 08/19/2024 3:23 PM EDT [facility] Basophils, Absolute 0.02 0.00 - 0.20 10*3/mm3 08/19/2024 3:23 PM EDT [facility] Immature Grans, Absolute 0.03 0.00 - 0.05 10*3/mm3 08/19/2024 3:23 PM EDT [facility] nRBC 0.0 0.0 - 0.2 /100 WBC 08/19/2024 3:23 PM EDT [facility] Blood Line / Unknown 08/19/2024 3: 02 PM EDT 08/19/2024 3:10 PM EDT Kt Fan DO LAB BLOOD ORDERABLES Final Result [facility]
[address] [place] [address], * (ABNORMAL) Urinalysis With Microscopic If Indicated (No Culture) - Urine, Clean Catch (08/19/2024 3:02 PM EDT) Color, UA Yellow Yellow, Straw 08/19/2024 3:33 PM EDT [facility] Appearance, UA Clear Clear 08/19/2024 3:33 PM EDT [facility] pH, UA >=9.0(H) 5.0 - 8.0 08/19/2024 3:33 PM EDT [facility] Specific [place], UA 1.018 1.005 - 1.030 08/19/2024 3:33 PM EDT [facility] Glucose, UA Negative Negative 08/19/2024 3:33 PM EDT [facility] Ketones, UA 15 mg/dL (1+)(A) Negative 08/19/2024 3:33 PM EDT [facility] Bilirubin, UA Negative Negative 08/19/2024 3:33 PM EDT [facility] Blood, UA Negative Negative 08/19/2024 3:33 PM EDT [facility] Protein, UA 30 mg/dL (1+)(A) Negative 08/19/2024 3:33 PM EDT [facility] Leuk Esterase, UA Negative Negative 08/19/2024 3:33 PM EDT [facility] Nitrite, UA Negative Negative 08/19/2024 3:33 PM EDT [facility] Urobilinogen, UA 1.0 E.U./dL 0.2 - 1.0 E.U./dL 08/19/2024 3:33 PM EDT [facility] Urine Urine specimen obtained by clean catch procedure / Unknown Collection / Unknown 08/19/2024 3:02 PM EDT 08/19/2024 3:13 PM EDT us Kt Fan DO URINE ORDERABLES Final Resu lt [facility]
[address] [place] [address], [place] [phone] * Amylase (08/19/2024 3:02 PM EDT) Amylase 73 28 - 100 U/L 08/19/2024 3:36 PM EDT [facility] Blood Line / Unknown 08/19/2024 3: 02 PM EDT 08/19/2024 3:10 PM EDT us Kt Fan DO LAB BLOOD ORDERABLES Final Result Performing Organization Address [facility] Co de Phone Number [facility]
[address] [place] [address], [place] [phone] * Lipase (08/19/2024 3:02 PM EDT) Lipase 13 13 - 60 U/L 08/19/2024 3:36 PM EDT [facility] Blood Line / Unknown 08/19/2024 3: 02 PM EDT 08/19/2024 3:10 PM EDT us Kt Fan DO LAB BLOOD ORDERABLES Final Result Performing Organization Address City/[facility]/ZIP Co de Phone Number [facility]
[address] [place] [address], [place] [phone] * (ABNORMAL) Comprehensive Metabolic Panel (08/19/2024 3:02 PM EDT) Glucose 75 65 - 99 mg/dL 08/19/2024 3:38 PM EDT [facility] BUN 3.6(L) 6.0 - 20.0 mg/dL 08/19/2024 3:38 PM T [facility] Creatinine 0.51(L) 0.57 - 1.00 mg/dL 08/19/2024 3:38 PM EDT [facility] Sodium 137 136 - 145 mmol/L 08/19/2024 3:38 PM T [facility] Potassium 2.6(LL) 3.5 - 5.2 mmol/L 08/19/2024 3:38 PM [facility] Comment:Specimen hemolyzed. Result may be falsely elevated. Chloride 99 98 - 107 mmol/L 08/19/2024 3:38 PM [facility] CO2 24.2 22.0 - 29.0 mmol/L 08/19/2024 3:38 PM T [facility] Calcium 8.8 8.6 - 10.5 mg/dL 08/19/2024 3:38 PM T [facility] Total Protein 6.6 6.0 - 8.5 g/dL 08/19/2024 3:38 PM [facility] Albumin 3.4(L) 3.5 - 5.2 g/dL 08/19/2024 3:38 PM [facility] ALT (SGPT) 10 1 - 33 U/L 08/19/2024 3:38 PM T [facility] AST (SGOT) 22 1 - 32 U/L 08/19/2024 3:38 PM T [facility] Alkaline Phosphatase 64 39 - 117 U/L 08/19/2024 3:38 PM [facility] Total Bilirubin 0.5 0.0 - 1.2 mg/dL 08/19/2024 3:38 PM T [facility] Globulin 3.2 gm/dL 08/19/2024 3:38 PM T [facility] Comment:Calculated Result A/G Ratio 1.1 g/dL 08/19/2024 3:38 PM EDT [facility] BUN/Creatinine Ratio 7.1 7.0 - 25.0 08/19/2024 3:38 PM EDT [facility] Anion Gap 13.8 5.0 - 15.0 mmol/L 08/19/2024 3:38 PM EDT [facility] eGFR 126.6 >60.0 mL/min/1.7 3 08/19/2024 3:38 PM EDT [facility] Blood Line / Unknown 08/19/2024 3: 02 PM EDT 08/19/2024 3:10 PM EDT [facility] - 08/19/2024 3:38 PM EDT GFR [...] Fan DO LAB BLOOD ORDERABLES Final Result [facility]
[address] [place] [address], * Type & Screen (08/19/2024 3:02 PM EDT) ABO Type O 08/19/2024 3:51 PM EDT [facility] RH type Positive 08/19/2024 3:51 PM EDT [facility] Antibody Screen Negative 08/19/2024 3:51 PM EDT [facility] T&S Expiration Date 08/22/2024 11:59:59 PM 08/19/2024 3:51 PM EDT [facility] Blood Line / Unknown 08/19/2024 3: 02 PM EDT 08/19/2024 3:15 PM EDT Kt Fan DO BLOOD BANK TEST ORDERABLES Edited Result - Final [facility]
[address] [place] [address], documented in this encounter Visit Diagnoses Diagnosis [...] BPA Driven Protocol Open Order & Select [facility] Electrolyte Replacement Protocol Algorithm to View Details [...] down infusion)2234 (New Bag - Provider: Yun Nicloe RN)233 (New Bag - Provider: Yun Nicole [...] documented as of this encounter Care Teams Pipe Setter Relationship Specialty Start Date End Date Norma Friedman APRN [address] [place] G3 RAFAELA APPIAH [address] PCP - General Family Medicine 05/14/24 documented as of this encounter
--- OUTSIDE RECORDS SUMMARY | 2024-08-20 13:44 | XMS_ITS | Encounter Summary ---
[facility] Address [address] [place] [phone] Care Team Providers Care Ems Helicopter Pilot Name Role Phone IvyKade goldbergdev FERNÁNDEZ Primary Care Provider + [phone] Reason for Visit * Auth/Cert (Routine) Specialty Diagnoses / Procedures Referred By Contac t Referred To Contact Referral ID Status Reason Start Date Expiration Date Visits Re quested Visits Authorized 1 1 Encounter Details Date Type Department Care Team (Late st Contact Info) Description 08/20/2024 1:44 PM EDT Anesthesia Event [facility] [address] [place] [phone] Akash Anguiano MD [address] [place] [address] Liborio Peralta CRNA [address] [place] [address] Anesthesia Record Procedure Summary Procedure Name Responsible [...] = 0.6 oz pur e alcohol) [facility] Utilities Answer Date Recorded In the [...] and heating? Not hard at all 05/28/2024 [facility] [place] of Occupat ional Health - Occupational Stress [...] GED or equivalent No 05/28/2024 Preferred Language Northern Irish 05/28/2024 PHQ-2 Answer Date Recorded Patient [...] 1:23 PM EDT Polly Lacey RN * [place] Suicide Severity Rating Scale (Screener/Recent Self-Report) Question Answer Date of Assessment Author 6. Suicidal Behavior (Lifetime) No 1:23 PM EDT Polly Cabrera RN documented as of this encounter OR Notes * Anesthesia Postprocedure Evaluation - Liborio Peralta CRNA - 08/20/2024 2:18 PM EDT Patient: Whitney Presley Procedure Summary Date: 08/20/24 Room / Location: [facility] ENDOSCOPY 3 / [facility] Anesthesia Start: [...] sounds: normal. 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 Plan discussed with QUILLER HAND. CODE STATUS: documented in this encounter Plan of Treatment Upcoming Encounters Date Type Department Care Team (Late st Contact Info) Description 01/20/2025 3:30 PM EST Office Visit [facility] [address] [facility] [address] Robbin Escalante MD [address] [address] documented as of this encounter Procedures Procedure [...] and Staff Patient location during procedure: [place] QUILLER HAND/CAA: Junior Zbigniew Jain, DAYNE Indications and Patient [...] documented as of this encounter Care Teams Ems Helicopter Pilot Relationship Specialty Start Date End Date Norma Friedman APRN [address] [place] [address] [place] [address] PCP - General Family Medicine 05/14/24 documented as of this encounter
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
--- OUTSIDE RECORDS SUMMARY | 2024-09-23 10:00 | XMS_ITS | Encounter Summary ---
Author Organization [facility] Address [address] [place] [address] Care Team Providers Care Director Of Capital Giving Name Role Phone Norma Friedman JOLENE Primary Care Provider +1- [phone] Reason for Referral * Consultation (Routine) - Closed Specialty Diagnoses / Procedures Referred By Contac t Referred To Contact Cardiology Diagnoses Supervision of high risk , antepartum Cardiac arrhythmia, unspecified cardiac arrhythmia type Liborio Weller MD [address] [facility] [address] [place] [address] Phone: tel: fax: Referral ID Status Reason Start Date Expiration Date V isits Requested Visits Authorized [id number] Closed Specialty Services Required 09/23/2024 03/25/2026 1 1 Encounter Details Date Type Department Care Team ([facility] st Contact Info) Description 09/23/2024 10:00 AM EDT Office Visit Medical Office Building Obstetrics and Gynecology [address] [facility], [address] [place] [address] Liborio Weller MD [address] [facility] 140 [place] [address] Supervision of high risk , [...] more drinks on one occasion? Never 09/23/2024 [place] Depression Scale Answer Date Recorded [place] Depression Scale Total 0 09/23/2024 The thought [...] last week on 09/19. She presented to [facility] for chest pain and palpitations. [...] 09/25 and has otherwise never seen a coremaker machine. She has never seen a virtual assistant. She also reports during this admission she [...] None N JAGDISH Complications: Potassium (K) deficiency [place] Depression Scale Total: 0 Gynecology History No [...] has a past surgical history that includes [place] tooth extraction (N/A); section, low transverse (N/A); [...] prescription(s): ferosul, potassium chloride cr, prenat mv-min w/kh-imqzci-cml, and thiamine. Allergies Allergies[1] Review of Systems [...] Had tachycardia and arrhythmia during admission to [facility] on 09/19 HR to 170s-180s with [...] other day Has never been evaluated by coremaker machine for salt wasting nephropathy PLAN Has nephrology [...] the patient, and documenting this visit. (Est [id number]) Brandee Pringle MD Obstetrics & Gynecology, PGY-2 [...] Description 10/24/2024 8:00 AM EDT Office Visit [facility] [place] [address], [address] [place] [address] Nneka Block MD [address] [place] [address] 12/25/2024 1:00 PM EST Office Visit [facility] Nephrology, Bone & Mineral Metabolism [address] [facility], [address] [place] [address] Scheduled Referrals Name Type Priority [...] Ketones, Urine 40(A) Negative mg/dL POCT Specific [place], Urine 1.015 POCT Blood, Urine Negative Negative POCT pH, Urine >=9.0(A) 5.0 to 8.0 POCT Protein, Urine 100(A) Negative mg/dL POCT Urobilinogen, Urine 0.2 0.2, 1 E.U./dL POCT Nitrite, Urine Negative Negative POCT Leukocyte Esterase, Urine Negative Negative Test Strip Lot Number [id number] Test Strip Lot Expiration 07/2025 Urine Urine [...] as of this encounter Care Teams Director Of Capital Giving Relationship Specialty Start Date End Date Norma Friedman APRN [address] [place] [id number] PCP - General 09/23/24 documented as of this encounter
--- OUTSIDE RECORDS SUMMARY | 2024-09-25 14:20 | XMS_ITS | Encounter Summary ---
Author Organization Healthcare Address [address] [place] [address] Care Team Providers Care Entry Level Lab Technician Name Role Phone Norma Friedman JOLENE Primary Care Provider +1- [phone] Reason for Referral * Consultation (Routine) - Authorized Specialty Diagnoses / Procedures Referred By Tarik pedersen Referred To Contact Diagnoses Hypokalemia Bill Patrick MD [address] [place] [phone] Phone: tel: fax: Referral ID Status Reason Start Date Expiration Date V isits Requested Visits Authorized [id number] Authorized 09/25/2024 03/27/2026 1 1 * Imaging (Routine) - Authorized Specialty Diagnoses / Procedures Referred By Tarik pedersen Referred To Contact Radiology Diagnoses Hypokalemia Procedures US Renal Complete Bill Patrick MD [address] [place] [id number] Phone: tel: fax: Referral ID Status Reason Start Date Expiration Date V isits Requested Visits Authorized [id number] Authorized 09/25/2024 03/27/2026 1 1 Reason for Visit * Reason Comments Consult * Consultation (Routine) - Closed Specialty Diagnoses / Procedures Referred By Tarik pedersen Referred To Contact Nephrology Diagnoses Hypokalemia Liborio Weller MD [address] [address] Phone: tel: fax: [facility] Nephrology, Bone & Mineral Metabolism [address] , [address] [place] [address] Phone: tel: fax: Referral ID Status Reason Start Date Expiration Date V isits Requested Visits Authorized [id number] Closed Specialty Services Required 09/14/2024 03/16/2026 1 1 Encounter Details Date Type Department Care Team (Late st Contact Info) Description 09/25/2024 2:20 PM EDT Office Visit [facility] Nephrology, Bone & Mineral Metabolism [address], [address] [place] [address] Hypokalemia (Primary Dx) Social History [...] more drinks on one occasion? Never 09/23/2024 Pass [place] Depression Scale Answer Date Recorded Pass Christian Depression Scale Total 0 09/23/2024 The thought [...] Description 10/24/2024 8:00 AM EDT Office Visit [facility] [address] [facility] [address] [facility], [address] [place] [address] Nneka Block MD [address] [place] [address] 12/25/2024 1:00 PM EST Office Visit [facility] Nephrology, Bone & Mineral Metabolism [address] [facility] [facility] [address], [address] [place] [address] Pending Results Name Type Priority Associated Diagnoses Date /Time SSA 52 and 60 (Ro) (YARA) Antibodies, [...] Routine Hypokalemia Expected: 09/25/2024 (Approximate), Expires: 03/28/2026 SSA 52 and 60 (Ro) (YARA) Antibodies, [...] Chloride, Urine 25 mmol/L 2:03 PM EDT [facility] Urine Urine specimen obtained by clean catch procedure / Unknown Non-blood Collection / Unknown 09/26/2024 10:07 AM EDT 09/26/2024 10:07 AM EDT Result [facility] us Bill Patrick MD LAB URINE ORDERABLES Final Resul t [facility] [address] [place] [address] * Protein, Random, Urine with Creatinine (09/26/2024 10:03 AM EDT) Protein, Urine 26 mg/dL 09/26/2024 12:08 PM EDT [facility] Creatinine, Urine 199 mg/dL 09/26/2024 12:08 PM EDT [facility] Protein/Creati nine Ratio 0.1 mg/mg Creat 09/26/2024 12:08 PM EDT [facility] Urine Urine specimen obtained by clean catch procedure / Unknown Non-blood Collection / Unknown 09/26/2024 10:03 AM EDT 09/26/2024 10:04 AM EDT us Bill Patrick MD LAB URINE ORDERABLES Final Resul t Performing Organization Address City/[facility] Co de Phone Number [facility] [address] [place] [address] * Potassium, urine, random (09/26/2024 10:02 AM EDT) Potassium, Urine 43 mmol/L 09/26/2024 11:55 AM EDT [facility] Urine Urine specimen obtained by clean catch procedure / Unknown Non-blood Collection / Unknown 09/26/2024 10:02 AM EDT 09/26/2024 10:02 AM EDT us Bill Patrick MD LAB URINE ORDERABLES Final Resul t Performing Organization Address [facility] de Phone Number [facility] [address] [place] [address] * Osmolality, urine (09/26/2024 10:02 AM EDT) Osmolality, Urine 404 50 - 1,200 mOsm/kg 09/26/2024 1:48 PM EDT [facility] Urine Urine specimen obtained by clean catch procedure / Unknown Non-blood Collection / Unknown 09/26/2024 10:02 AM EDT 09/26/2024 10:02 AM EDT us Bill Patrick MD LAB URINE ORDERABLES Final Resul t Performing Organization Address [facility] Co de Phone Number [facility] [address] [place] [address] * Sodium, urine, random (09/26/2024 10:02 AM EDT) Sodium, Urine 110 mmol/L 09/26/2024 11:55 AM EDT [facility] Urine Urine specimen obtained by clean catch procedure / Unknown Non-blood Collection / Unknown 09/26/2024 10:02 AM EDT 09/26/2024 10:02 AM EDT us Bill Patrick MD LAB URINE ORDERABLES Final Resul t Performing Organization Address City/[facility] Co de Phone Number [facility] [address] [place] [address] * Rheumatoid factor, plasma (09/26/2024 9:32 AM EDT) [facility] Rheumatoid Factor, Plasma <10 <14 IU/mL 09/26/2024 1:49 PM EDT [facility] Blood Venous blood specimen / Unknown Venipuncture / Unknown 09/26/2024 9:32 AM EDT 09/26/2024 9:32 AM EDT us Bill Patrick MD LAB BLOOD ORDERABLES Final Resul t [facility] [address] [place] [address] * (ABNORMAL) Renal function panel (09/26/2024 9:32 AM EDT) [facility] Glucose, Plasma 87 74 - 99 mg/dL 09/26/2024 12:24 PM EDT [facility] BUN, Plasma 5(L) 7 - 21 mg/dL 09/26/2024 12:24 PM EDT [facility] Creatinine, Plasma 0.72 0.60 - 1.10 mg/dL 09/26/2024 12:24 PM EDT [facility] BUN/Creatinine Ratio 7 09/26/2024 12:24 PM EDT [facility] Sodium, Plasma 135(L) 136 - 145 mmol/L 09/26/2024 12:24 PM EDT [facility] Potassium, Plasma 3.1(L) 3.6 - 4.9 mmol/L 09/26/2024 12:24 PM EDT [facility] Chloride, Plasma 95(L) 97 - 107 mmol/L 09/26/2024 12:24 PM EDT [facility] CO2, Plasma 26 22 - 29 mmol/L 09/26/2024 12:24 PM EDT [facility] Anion Gap 14 6 - 16 mmol/L 09/26/2024 12:24 PM EDT [facility] Total Calcium, Plasma 9.4 8.9 - 10.2 mg/dL 09/26/2024 12:24 PM EDT [facility] Phosphorus, Plasma 3.5 2.5 - 4.5 mg/dL 09/26/2024 12:24 PM EDT [facility] Albumin, Plasma 3.6 3.5 - 5.2 g/dL 09/26/2024 12:24 PM EDT [facility] eGFRcr 113.4 mL/min/1.7 3m*2 09/26/2024 12:24 PM EDT [facility] Comment:Reported eGFRcr in m L/min/1.73m2 is based the CKD-EPI 2020 equation that does not use a race coefficient. Blood Venous blood specimen / Unknown Venipuncture / Unknown 09/26/2024 9:32 AM EDT 09/26/2024 9:32 AM EDT us Bill Patrick MD LAB BLOOD ORDERABLES Final Resul t Performing Organization Address City/[facility] Co de Phone Number [facility] [address] [place] [address] * (ABNORMAL) Osmolality (09/26/2024 9:32 AM EDT) Osmolality, Serum 273(L) 275 - 295 mOsm/Kg 09/26/2024 2:10 PM EDT [facility] Blood Venous blood specimen / Unknown Venipuncture / Unknown 09/26/2024 9:32 AM EDT 09/26/2024 9:32 AM EDT us Bill Patrick MD LAB BLOOD ORDERABLES Final Resul t Performing Organization Address [facility] Co de Phone Number [facility] [address] [place] [address] documented in this encounter Visit Diagnoses Diagnosis Hypokalemia- Primary Hypopotassemia documented in this encounter Additional Health Concerns Assessment Noted Time A fall risk assessment has been complete d for the patient 09/25/2024 3:05 PM EDT A Body Mass Index follow-up plan has been documented for the patient 09/23/2024 8:28 PM EDT documented as of this encounter Care Teams Entry Level Lab Technician Relationship Specialty Start Date End Date Norma Friedman APRN [address] [place] [address] PCP - General 09/23/24 documented as of this encounter
--- OUTSIDE RECORDS SUMMARY | 2024-09-26 08:00 | XMS_ITS | Encounter Summary ---
Author Organization [facility] Address [address] [place] [address] Care Team Providers Care Stamp Analyst Name Role Phone Norma Friedman HEAD OF MATHEMATICS Primary Care Provider [phone]- [phone] Lizz Trinh RN Unavailable Unavailable Reason for Referral * Consultation (Routine) - Authorized Specialty Diagnoses / Procedures Referred By Tarik pedersen Referred To Contact Diagnoses Palpitations Syncope and collapse Nneka Block MD [address] [place] [phone] Phone: tel: fax: Referral ID Status Reason Start Date Expiration Date V isits Requested Visits Authorized [id number] Authorized 09/26/2024 03/28/2026 1 1 * Cardiac Stress Testing (Routine) - Closed Specialty Diagnoses / Procedures Referred By Contac t Referred To Contact Cardiology Diagnoses Palpitations Syncope and collapse Procedures Adult Patch Monitor - 7 Day Nneka Block MD [address] [place] [phone] Phone: tel: fax: Referral ID Status Reason Start Date Expiration Date Visits Re quested Visits Authorized [id number] Closed 09/26/2024 03/28/2026 1 1 Reason for Visit * Consultation (Routine) - Closed Specialty Diagnoses / Procedures Referred By Contac t Referred To Contact Cardiology Diagnoses Supervision of high risk , antepartum Cardiac arrhythmia, unspecified cardiac arrhythmia type [place] RidgeLib[place] Preciado MD [address] [address] Phone: tel: fax: Referral ID Status Reason Start Date Expiration Date V isits Requested Visits Authorized [id number] Closed Specialty Services Required 09/23/2024 03/25/2026 1 1 Encounter Details Date Type Department Care Team (Late st Contact Info) Description 09/26/2024 8:00 AM EDT Office Visit [facility] [place] [address] [facility], [address] [place] [address] Nneka Block MD [address] [place] [address] Syncope and collapse (Primary Dx); [...] more drinks on one occasion? Never 09/23/2024 [place] Depression Scale Answer Date Recorded [place] Depression Scale Total 0 09/23/2024 The thought [...] Block MD - 09/26/2024 8:00 AM EDT [place] [facility] ([facility]) Problem List #Hypomagnesium and Hypokalemia -- PICC [...] home with no plans. 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 to evaluate for abnormal rhythms and [...] TOOTH EXTRACTION N/A Oral Surgery Tooth Extraction [place] Tooth from [employer] [3] Social History Socioeconomic [...] Low Risk (05/28/2024) Received from [facility] Overall Financial Resource Strain (CARDIA) Difficulty of Paying Living Expenses: Not hard at all Food Insecurity: No Food Insecurity (05/28/2024) Received from [facility] Hunger Vital Sign Within the past 12 months, you worried that your food would run out before you got the money to buymore.: Never true Within the past 12 months, the food you bought just didn't last and you didn't have money to get more.: Never true Transportation Needs: No Transportation Needs (05/28/2024) Received from [facility] PRAPARE - Transportation In the past 12 months, has lack of transportation kept you from medical appointments or from getting medications?: No In the past 12 months, has lack of transportation kept you from meetings, work, or from getting things needed for daily living?: No Physical Activity: Sufficiently Active (05/28/2024) Received from [facility] Exercise Vital Sign On average, how many days per week do you engage in moderate to strenuous exercise (like a brisk walk)?: 5 days On average, how many minutes do you engage in exercise at this level?: 40 min Stress: Stress Concern Present (05/27/2024) Received from [facility] [place] [employer] - Occupational Stress Questionnaire Feeling of Stress : To some extent Social Connections: Not At Risk (05/28/2024) Received from [facility] Family and Community Support If for any reason you need help with day-to-day activities such as bathing, preparing meals, shopping, managing finances, etc., do you get the help you need?: I don't need any help How often do you feel lonely or isolated from those around you?: Sometimes Intimate Partner Violence: Not At Risk (08/19/2024) Received from [facility] Abuse Screen Feels Unsafe at Home or Work/School: no Feels Threatened by Someone: no Does Anyone Try to Keep You From Having Contact with Others or Doing Things Outside Your Home?: no Physical Signs of Abuse Present: no Housing Stability: Not At Risk (08/20/2024) Received from [facility] Housing Stability Current Living Arrangements: home [...] Description 10/24/2024 8:00 AM EDT Office Visit [facility] [place] [address], [address] [place] [address] Nneka Block MD [address] [place] [address] 12/25/2024 1:00 PM EST Office Visit [facility] Nephrology, Bone & Mineral Metabolism [address], [address] [place] [address] Pending Results Name Type Priority [...] QTC Interval 441 ms MUSE ECG P [place] 60 degrees MUSE ECG R [place] 36 degrees MUSE ECG T Wave [place] 55 degrees MUSE ECG Diagnosis Normal sinus rhythm with sinus arrhythmia MUSE ECG Diagnosis Normal ECG MUSE ECG Diagnosis MUSE ECG Diagnosis Confirmed by Abad South ([id number]) on 09/26/2024 12:13:59 PM MUSE ECG 09/26/2024 [...] documented as of this encounter Care Teams Stamp Analyst Relationship Specialty Start Date End Date Norma Friedman APRN [address] [place], [place] [phone] PCP - General 09/23/24 Lizz Trinh, RN [facility] Registered Nurse Cardiology 09/26/24 documented as of this encounter
--- OUTSIDE RECORDS SUMMARY | 2024-09-26 09:06 | XMS_ITS | Encounter Summary ---
Author Organization [facility] Address [address] [place] [address] Care Team Providers Care Customer Marketing Manager Name Role Phone Elder Kadedev Coy CONTAINER COORDINATOR Primary Care Provider +1- [phone] iLzz Trinh RN Unavailable Unavailable Reason for Referral * Cardiac Stress Testing (Routine) - Closed Specialty Diagnoses / Procedures Referred By Tarik pedersen Referred To Contact Cardiology Diagnoses Palpitations Syncope and collapse Procedures Adult Patch Monitor - 7 Day Nneka Block MD [address] [place] [address] Phone: tel: fax: Referral ID Status Reason Start Date Expiration Date Visits Re quested Visits Authorized [id number] Closed 09/26/2024 03/28/2026 1 1 Reason for Visit * Cardiac Stress Testing (Routine) - Closed Specialty Diagnoses / Procedures Referred By Tarik pedersen Referred To Contact Cardiology Diagnoses Palpitations Syncope and collapse Procedures Adult Patch Monitor - 7 Day Nneka Block MD [address] [place] [address] Phone: tel: fax: Referral ID Status Reason Start Date Expiration Date Visits Re quested Visits Authorized [id number] Closed 09/26/2024 03/28/2026 1 1 Encounter Details Date Type Department Care Team (Latest Contact Info) Description 09/26/2024 9:06 AM EDT - 09/26/2024 11:59 PM EDT Hospital Encounter Medical Office Building Cardiac Diagnostic Testing Medical Office Building Echo Lab [address] [facility], [address] [place] [address] Palpitations; Syncope and collapse Discharge [...] more drinks on one occasion? Never 09/23/2024 [place] Depression Scale Answer Date Recorded [place] Depression Scale Total 0 09/23/2024 The thought [...] 2 times a day. 09/02/2024 Prenat MV-Min w/Nc-Tzuxua-JNI ( COMPLETE PO) 12/25/2018 thiamine (Vitamin B-1) 100 MG tablet Take 1 tablet by mouth 1 time each day. 09/01/2024 documented as of this encounter Plan of Treatment Upcoming Encounters Date Type Department Care Team (Late st Contact Info) Description 10/24/2024 8:00 AM EDT Office Visit [facility] [place] [address] [facility], [address] [place] [address] Nneka Block MD [address] [place] [address] 12/25/2024 1:00 PM EST Office Visit [facility] Nephrology, Bone & Mineral Metabolism [address] [facility], [address] [place] [address] Pending Results Name Type Priority [...] as of this encounter Care Teams Customer Marketing Manager Relationship Specialty Start Date End Date Norma Friedman APRN [address] [place] [address] PCP - General 09/23/24 Lizz Trinh, RN [facility] Registered Nurse Cardiology 09/26/24 documented as of this encounter
--- OUTSIDE RECORDS SUMMARY | 2024-09-28 06:49 | XMS_ITS | Encounter Summary ---
Author Organization [facility] Address [address] [place] [address] Care Team Providers Care Service Station Manager Name Role Phone Elder Kadedev Coy APRN Primary Care Provider +[phone] Lizz Trinh RN Unavailable Unavailable Reason for Referral * Consultation (Routine) - Authorized Specialty Diagnoses / Procedures Referred By Tarik pedersen Referred To Contact Nephrology Diagnoses History of proteinuria syndrome care, subsequent , second trimester Staci Jain MD [address] [address] Phone: tel: fax: [facility] Nephrology, Bone & Mineral Metabolism [address] [facility], [address] [place] [address] Phone: tel: fax: Referral ID Status Reason Start Date Expiration Date Visits Requested Visits Authorized [id number] Authorized Specialty Services Required 07/22/2024 01/21/2026 1 1 Encounter Details Date Type Department Care Team (Late st Contact Info) Description 07/22/2024 [facility] [address] [place] [address] Staci Jain MD [address] [place] [address] History of proteinuria syndrome (Primary Dx); care, [...] Description 10/24/2024 8:00 AM EDT Office Visit [facility] [place] [address] [facility], [address] [place] [address] Nneka Block MD [address] [place] [address] 12/25/2024 1:00 PM EST Office Visit [facility] [place] Nephrology, Bone & Mineral Metabolism [address] [facility], [address] [place] [address] Scheduled Referrals Name Type Priority Associated Diagnoses Orde r Schedule Ambulatory referral to Nephrology Outpatient Referral Routine History of proteinuria syndrome care, subsequent , second trimester Expected: 07/22/2024 (Approximate), Expires: 01/23/2026 documented as of this encounter Visit Diagnoses Diagnosis History of proteinuria syndrome- Primary care, subsequent , second trimester documented in this encounter Care Teams Service Station Manager Relationship Specialty Start Date End Date Norma Friedman APRN [address] [id number] PCP - General 09/23/24 Lizz Trinh, RN [facility] Registered Nurse Cardiology 09/26/24 documented as of this encounter
--- OUTSIDE RECORDS SUMMARY | 2024-09-28 06:49 | XMS_ITS | Encounter Summary ---
[facility] Address [address] [place] [id number] Care Team Providers Care Associate Dean Of Women Name Role Phone Ivyashlyn Norma FERNÁNDEZ Primary Care Provider + [phone] Encounter Details Date Type Department Care Team (Late st Contact Info) Description 09/02/2024 Telephone [facility] OBGYN [address] [address] Staci Jain MD [address] [place] [id number] Social History Tobacco Use Types Packs/Day Years Used Date Smoking Tobacco: Never Smokeless Tobacco: Never Alcohol Use Standard Drinks/Week Comments Never 0 (1 standard drink = 0.6 oz pur e alcohol) [facility] Utilities Answer Date Recorded In the past 12 months has [employer] gas, oil, or water [employer] threatened to shut off services in your [...] and heating? Not hard at all 05/28/2024 [facility] of Occupat ional Health - [...] GED or equivalent No 05/28/2024 Preferred Language Belarusian 05/28/2024 PHQ-2 Answer Date Recorded Patient Health [...] just got d[facility] from [facility] hours ago and they gave her a total 10 MLE of K+ and 3 units of Mag and 2 liters of LR. She has decided to transfer care to [facility] as it iscloser to her like 15 min away. She wants you (Dr. Jain) to know this has nothing to you but rather the nurses and aws consultant doctor did not relay the labs to you in a faster fashion. She said you can call her if you want and she is not angry. Dr. Jain was notified. * Telephone Encounter - Frederick Gruber RN - 09/02/2024 3:10 PM EDT Cell-A-Spott message sent to the pt regarding outpt infusion apt tomorrow at [place]. documented in this encounter Plan of Treatment Upcoming Encounters Date Type Department Care Team (Late st Contact Info) Description 01/20/2025 3:30 PM EST Office Visit [facility] GASTROENTEROLOGY [address] [place] [address] [place] [address] Robbin Escalante MD [address] [facility] [address] [place] [address] documented as of this encounter Visit Diagnoses Not on filedocumented in this encounter Additional Health Concerns Assessment Noted Time PHQ-2 Depression Total Score: 2 05/28/19 25 4:39 PM EDT documented as of this encounter Care Teams Associate Dean Of Women Relationship Specialty Start Date End Date Norma Friedman APRN [address] [place] [address] [place] [address] PCP - General Family Medicine 05/14/24 documented as of this encounter
--- OUTSIDE RECORDS SUMMARY | 2024-09-28 06:49 | XMS_ITS | Encounter Summary ---
[facility] Address [address] [place] [id number] Care Team Providers Care Reservationist Name Role Phone Ivyashlyn Valentinoseven JOLENE Primary Care Provider + [phone] Encounter Details Date Type Department Care Team (Late st Contact Info) Description 06/26/2024 Results Follow-Up [facility] OBGYN [address] [address] Koby Roberts MD [address] [place] [address] Social History Tobacco Use Types Packs/Day Years Used Date Smoking Tobacco: Never Smokeless Tobacco: Never Alcohol Use Standard Drinks/Week Comments Never 0 (1 standard drink = 0.6 oz pur e alcohol) [facility] Utilities Answer Date Recorded In the past 12 months has [employer], gas, oil, or water [employer] threatened to shut off services in your [...] heating? Not hard at all 05/28/2024 [facility] of Occupat ional Health - Occupational Stress [...] [facility]STROENTEROLOGY [address] [facility] [address] Robbin Escalante MD [address] [address] documented as of this encounter Visit Diagnoses Not on filedocumented in this encounter Additional Health Concerns Assessment Noted Time PHQ-2 Depression Total Score: 2 05/28/19 25 4:39 PM EDT documented as of this encounter Care Teams Reservationist Relationship Specialty Start Date End Date Norma Friedman APRN [address] [place] [address] RAFAEL[place] APPIAH [address] PCP - General Family Medicine 05/14/24 documented as of this encounter
--- OUTSIDE RECORDS SUMMARY | 2024-09-28 06:49 | XMS_ITS | Encounter Summary ---
[facility] [address] [place] [id number] Care Team Providers Care Recorder Helper Seismograph Name Role Phone IvyKade goldbergjoseseven JOLENE Primary Care Provider + [phone] Encounter Details Date Type Department Care Team (Late st Contact Info) Description 09/03/2024 Results Follow-Up [facility] OBGYN [address] [place] [address] Staci Jain MD [address]00 [facility] [address] [place] [address] Social History Tobacco Use Types Packs/Day Years Used Date Smoking Tobacco: Never Smokeless Tobacco: Never Alcohol Use Standard Drinks/Week Comments Never 0 (1 standard drink = 0.6 oz pur e alcohol) [facility] Utilities Answer Date Recorded In the past 12 months has [employer], gas, oil, or water [employer] threatened to shut off services in your [...] heating? Not hard at all 05/28/2024 [facility] of Occupat ional Health - Occupational [...] Visit [facility] GASTROENTEROLOGY [address] [address] Robbin Escalante MD [address] [address] documented as of this encounter Visit Diagnoses Not on filedocumented in this encounter Additional Health Concerns Assessment Noted Time PHQ-2 Depression Total Score: 2 05/28/19 4:39 PM EDT documented as of this encounter Care Teams Recorder Helper Seismograph Relationship Specialty Start Date End Date Norma Friedman APRN [address] [place] [address] RAFAEL[place] APPIAH [address] PCP - General Family Medicine 05/14/24 documented as of this encounter
--- OUTSIDE RECORDS SUMMARY | 2024-09-28 06:49 | XMS_ITS | Clinical Summary ---
Author Organization [facility] Address [place] [address] Phone Care Team Providers Care Bioinformatics Team Member Name Role Phone Unavailable Primary Care Provider [...] migh t be different from the original. [facility] - Edwardo Ojeda MD Interventional Pain Protocol: NS Appt 03/29/22 Letter Sent Maxime report completed (EVERY 3 MONTHS) ( 03/23/22) Pharmacy: [facility] [address] [place] [address] [address] [facility] south - [phone] No known active problems Social History Tobacco [...] patient's age to complete this topic Insurance [employer] [facility] [place] [address] [id number] [facility] [employer] [facility] [place]
--- OUTSIDE RECORDS SUMMARY | 2024-09-28 06:49 | XMS_ITS | Encounter Summary ---
Author Organization Healthcare Address [address] [place] [address] Care Team Providers Care Technology Risk Intern Name Role Phone Norma burger JOLENE Primary Care Provider +[phone]- [phone] Lizz Trinh RN Unavailable Unavailable Encounter Details Date Type Department Care Team (Late Contact Info) Description 07/22/2024 Community [facility] [address] [place] [address] Sandy Cardenas MD 1700 [facility] [address] [place] [address] Social History Tobacco Use Types Packs/Day Years [...] Description 10/24/2024 8:00 AM EDT Office Visit [facility] [place] [address] [facility], [address] [place] [address] Nneka Block MD [address] [place] [address] 12/25/2024 1:00 PM EST Office Visit [facility] Nephrology, Bone & Mineral Metabolism [address] [facility], [address] [place] [address] documented as of this encounter Visit Diagnoses Not on filedocumented in this encounter Care Teams Technology Risk Intern Relationship Specialty Start Date End Date Norma Friedman, JOLENE [address] [place], [place] [id number] PCP - General 09/23/24 Lizz Trinh, RN [facility] Registered Nurse Cardiology 09/26/24 documented as of this encounter
--- OUTSIDE RECORDS SUMMARY | 2024-09-28 06:49 | XMS_ITS | Encounter Summary ---
Author [facility] Address [address] [place] [id number] Care Team Providers Care Government Affairs Specialist Name Role Phone Ivyashlyn Norma FERNÁNDEZ Primary Care Provider + [phone] Encounter Details Date Type Department Care Team (Late st Contact Info) Description 08/28/2024 Telephone [facility] OBGYN [address] [address] Staci Jain MD [address] [place] [id number] Social History Tobacco Use Types Packs/Day Years Used Date Smoking Tobacco: Never Smokeless Tobacco: Never Alcohol Use Standard Drinks/Week Comments Never 0 (1 standard drink = 0.6 oz pur e alcohol) [facility] Utilities Answer Date Recorded In the past 12 months has [employer], gas, oil, or water [employer] threatened to shut off services in your [...] and heating? Not hard at all 05/28/2024 [facility] of Occupat ional Health - Occupational Stress [...] (BMP). She does have an appt in [facility] at 10 am tomorrow. Advisedthat it would [...] states she was supposed to come into [place] office today to have labs drawn however sheis currently hung up [facility] is wondering if she could just have labs drawn there? documented in this encounter Plan of Treatment Upcoming Encounters Date Type Department Care Team (Late st Contact Info) Description 01/20/2025 3:30 PM EST Office Visit [facility] GASTROENTEROLOGY 1720 [facility] [address] [place] [address] Robbin Escalante MD 1720 [facility] [address] [place] [address] documented as of this encounter Visit Diagnoses Not on filedocumented in this encounter Additional Health Concerns Assessment Noted Time PHQ-2 Depression Total Score: 2 05/28/19 25 4:39 PM EDT documented as of this encounter Care Teams Government Affairs Specialist Relationship Specialty Start Date End Date Norma Friedman APRN [address] [place] [address] RAFAEL[place] APPIAH [address] PCP - General Family Medicine 05/14/24 documented as of this encounter
--- OUTSIDE RECORDS SUMMARY | 2024-09-28 06:49 | XMS_ITS | Encounter Summary ---
[facility] Address [address] [place] [address] Care Team Providers Care Meat Molder Name Role Phone Norma Friedman APRN Primary Care Provider + [phone] Encounter Details Date Type Department Care Team (Late st Contact Info) Description 08/19/2024 Telephone [facility] OBGYN [address] [place] [address] Jacey Mathews, WOOD WINDOW AND DOOR CRAFTSMAN 1700 [facility] [address] [place] [address] Social History Tobacco Use Types Packs/Day Years Used Date Smoking Tobacco: Never Smokeless Tobacco: Never Alcohol Use Standard Drinks/Week Comments Never 0 (1 standard drink = 0.6 oz pur e alcohol) [facility] Utilities Answer Date Recorded In the past 12 months has [employer], oil, or water [employer] threatened to shut off services in your [...] and heating? Not hard at all 05/28/2024 [facility] of Occupat ional [facility] [...] Visit [facility] GASTROENTEROLOGY [address] [address] Robbin Escalante MD [address] [address] documented as of this encounter Visit Diagnoses Not on filedocumented in this encounter Additional Health Concerns Assessment Noted Time PHQ-2 Depression Total Score: 2 05/28/19 25 4:39 PM EDT documented as of this encounter Care Teams Meat Molder Relationship Specialty Start Date End Date Norma Friedman APRN [address] [place] [address] [place]FA[place] APPIAH [address] PCP - General Family Medicine 05/14/24 documented as of this encounter
--- OUTSIDE RECORDS SUMMARY | 2024-09-28 06:49 | XMS_ITS | Encounter Summary ---
[facility] Address [address] [place] [address] Care Team Providers Care Plant Sprayer Name Role Phone Ivyashlyn Norma FERNÁNDEZ Primary Care Provider + [phone] Encounter Details Date Type Department Care Team (Late st Contact Info) Description 08/27/2024 Telephone [facility] OBGYN [address] [place] [address] Staci Jain MD 1700 [facility] [address] [place] [address] Social History Tobacco Use Types Packs/Day Years Used Date Smoking Tobacco: Never Smokeless Tobacco: Never Alcohol Use Standard Drinks/Week Comments Never 0 (1 standard drink = 0.6 oz pur e alcohol) [facility] Utilities Answer Date Recorded In the past 12 months has [employer], [employer], oil, or water [employer] threatened to shut off services in your [...] and heating? Not hard at all 05/28/2024 [facility] [place] of Occupat ional Health - Occupational Stress [...] GED or equivalent No 05/28/2024 Preferred Language Monegasque 05/28/2024 PHQ-2 Answer Date Recorded Patient Health [...] [facility] [address] [address] Robbin Escalante MD [address] [address] documented as of this encounter Visit Diagnoses Diagnosis History of hypokalemia- Primary documented in this encounter Additional Health Concerns Assessment Noted Time PHQ-2 Depression Total Score: 2 05/28/19 25 4:39 PM EDT documented as of this encounter Care Teams Plant Sprayer Relationship Specialty Start Date End Date Norma Friedman APRN [address] [place] [address] [place] [address] PCP - General Family Medicine 05/14/24 documented as of this encounter
--- OUTSIDE RECORDS SUMMARY | 2024-09-28 06:49 | XMS_ITS | Encounter Summary ---
[facility] Address [address] [place] [address] Care Team Providers Care Roller Pneumatic Name Role Phone Elder Norma FERNÁNDEZ Primary Care Provider + [phone] Encounter Details Date Type Department Care Team (Latest Contact Info) Description 08/29/2024 Travel Social History Tobacco Use Types Packs/Day Years Used Date Smoking Tobacco: Never Smokeless Tobacco: Never Alcohol Use Standard Drinks/Week Comments Never 0 (1 standard drink = 0.6 oz pur e alcohol) [facility] Utilities Answer Date Recorded In the past 12 months has [employer], gas, oil, or water company threatened [...] hard at all 05/28/2024 [facility] [place] of Occupat ional Health - Occupational Stress [...] [facility] [address] [facility] [address] [place] [address] Robbin Escalante MD [address]20 [facility] [address] [place] [address] documented as of this encounter Visit Diagnoses Not on filedocumented in this encounter Additional Health Concerns Assessment Noted Time PHQ-2 Depression Total Score: 2 05/28/19 25 4:39 PM EDT documented as of this encounter Care Teams Roller Pneumatic Relationship Specialty Start Date End Date Norma Friedman APRN [address] [place] [address] [place] [address] PCP - General Family Medicine 05/14/24 documented as of this encounter
--- OUTSIDE RECORDS SUMMARY | 2024-09-28 06:50 | XMS_ITS ---
Author Organization [facility] Address [address] [place] [address] Care Team Providers Care Walnut Dehydrator Operator Name Role Phone Norma Friedman APRN Primary Care Provider [phone] Motherhood Connection Status:Engaged (Active) Start date:05/23/2024 Enrollment date:05/23/2024 Case Team Name Relationship Phone Bindu Castellon RN Nurse Navigator Christy Zabala RN(Responsible Staff) Nurse Navig ator Continued Care and Services Coordination
--- OUTSIDE RECORDS SUMMARY | 2024-09-28 06:50 | XMS_ITS | Encounter Summary ---
[facility] Address [address] [place] [address] Care Team Providers Care Garment Sewer Hand Name Role Phone Elder Norma FERNÁNDEZ Primary Care Provider + [phone] Encounter Details Date Type Department Care Team (Latest Contact Info) Description 08/19/2024 Travel Social History Tobacco Use Types Packs/Day Years Used Date Smoking Tobacco: Never Smokeless Tobacco: Never Alcohol Use Standard Drinks/Week Comments Never 0 (1 standard drink = 0.6 oz pur e alcohol) [facility] Utilities Answer Date Recorded In the past 12 months has [employer] electric, gas, oil, or water company threatened [...] hard at all 05/28/2024 [facility] [place] of Occupat ional Health - Occupational Stress [...] GED or equivalent No 05/28/2024 Preferred Language Swazi 05/28/2024 PHQ-2 Answer Date Recorded Patient Health [...] 2:34 PM EDT Nneka Cross RN * [place] Suicide Severity Rating Scale (Screener/Recent Self-Report) Question Answer Date of Assessment Author 6. Suicidal Behavior (Lifetime) No 2:34 PM EDT Nneka Cross RN documented as of this encounter Plan of Treatment Upcoming Encounters Date Type Department Care Team (Late st Contact Info) Description 01/20/2025 3:30 PM EST Office Visit [facility] GASTROENTEROLOGY [address] [phone] Robbin Escalante MD [address] [address] documented as of this encounter Visit Diagnoses Not on filedocumented in this encounter Additional Health Concerns Assessment Noted Time PHQ-2 Depression Total Score: 2 05/28/19 25 4:39 PM EDT documented as of this encounter Care Teams Garment Sewer Hand Relationship Specialty Start Date End Date Norma Friedman APRN [address] [place] [address] RAFAELA APPIAH [address] PCP - General Family Medicine 05/14/24 documented as of this encounter
--- OUTSIDE RECORDS SUMMARY | 2024-09-28 06:50 | XMS_ITS | Referral Summary ---
Author Organization [employer] ([place], [place], [place], [place]) Address [address] [place] [address] Care Team Providers Care Mexican Food Maker Name Role Phone Unavailable Primary Care [...]
--- OUTSIDE RECORDS SUMMARY | 2024-09-28 06:50 | XMS_ITS | Encounter Summary ---
Author Organization [facility] Address [address] [place] [id number] Care Team Providers Care Editor Greeting Card Name Role Phone Elder Norma FERNÁNDEZ Primary Care Provider + [phone] Encounter Details Date Type Department Care Team (Late st Contact Info) Description 07/07/2024 Results Follow-Up [facility] [address] [place] [address] [place] [phone] Kelly Delgado APRN [address] [facility] [address] [place] [address] Social History Tobacco Use Types Packs/Day Years Used Date Smoking Tobacco: Never Smokeless Tobacco: Never Alcohol Use Standard Drinks/Week Comments Never 0 (1 standard drink = 0.6 oz pur e alcohol) [facility] Utilities Answer Date Recorded In the past 12 months has [employer], gas, oil, or water [employer] threatened to shut off services in your [...] GED or equivalent No 05/28/2024 Preferred Language Congolese 05/28/2024 PHQ-2 Answer Date Recorded Patient Health [...] Office Visit [facility] [address] [facility] [address] Robbin Escalante MD [address] [address] documented as of this encounter Visit Diagnoses Not on filedocumented in this encounter Additional Health Concerns Assessment Noted Time PHQ-2 Depression Total Score: 2 05/28/19 25 4:39 PM EDT documented as of this encounter Care Teams Editor Greeting Card Relationship Specialty Start Date End Date Norma Friedman APRN [address] [place] [place]FA[place] APPIAH [address] PCP - General Family Medicine 05/14/24 documented as of this encounter
--- OUTSIDE RECORDS SUMMARY | 2024-09-28 06:50 | XMS_ITS | Encounter Summary ---
[facility] Address [address] [place] [id number] Care Team Providers Care Medical Insurance Claims Processor Name Role Phone IvyKade goldbergjoseseven JOLENE Primary Care Provider + [phone] Encounter Details Date Type Department Care Team (Late st Contact Info) Description 09/26/2024 Documentation [facility] [address] [place] [phone] Christy Zabala, RN Social History Tobacco Use [...] and heating? Not hard at all 05/28/2024 [facility] [place] of Occupat ional Health - Occupational Stress [...] as of this encounter Progress Notes * Christy Zabala RN - 09/26/2024 11:05 AM EDTSummary: Motherhood Connection Review of chart reveals patient [facility] to [facility] to continue care. Will plan to review chart around [facility]C for delivery information. documented in this encounter Plan of Treatment Upcoming Encounters Date Type Department Care Team (Late st Contact Info) Description 01/20/2025 3:30 PM EST Office Visit [facility] [address] [phone] Robbin Escalante MD [address] [address] documented as of this encounter Visit Diagnoses Not on filedocumented in this encounter Additional Health Concerns Assessment Noted Time PHQ-2 Depression Total Score: 2 05/28/19 25 4:39 PM EDT documented as of this encounter Care Teams Medical Insurance Claims Processor Relationship Specialty Start Date End Date Norma Friedamn APRN [address] [place] [address] [place] [address] PCP - General Family Medicine 05/14/24 documented as of this encounter
--- OUTSIDE RECORDS SUMMARY | 2024-09-28 06:50 | XMS_ITS | Clinical Summary ---
Author Organization [employer] ([place], [place], [place], [place]) Address [address] [place] [address] Care Team Providers Care Automobile Body Worker Name Role Phone Unavailable Primary Care [...]
--- OUTSIDE RECORDS SUMMARY | 2024-09-28 06:50 | XMS_ITS | Encounter Summary ---
Author Organization [employer] ([place], [place]) Address [address] [place] [address] Care Team Providers Care Chief Radiologic Technologist Name Role Phone Unavailable Primary Care Provider Unavailabl e Encounter Details Date Type Department Care Team (Late st Contact Info) Description 07/17/2019 Transcribed Document [facility] [place] [address] [place] [address] ProviderEleno MD [address] [place], [place] [address] Social History Tobacco Use Types Packs/Day Years [...] On: 07/17/2019 19:17 EDT by KARLENE MCKINLEY application security architect Process Patient Disposition : AMA/[place]ope/LWBS KARLENE MCKINLEY [...]
--- OUTSIDE RECORDS SUMMARY | 2024-09-28 06:50 | XMS_ITS ---
Author Organization [facility] Address [address] [place] [address] Care Team Providers Care Chief Of Surgery Name Role Phone Unavailable Primary Care Provider Unavailabl e Transplant Episode Kidney Potential Donor [facility] ([place], [place]) - [facility] Referred on 05/03/2022 Marked as Deferred on 05/04/2022 Reason: Other Kidney CoordinatorNadine Augustin R.N. Phone: N/A Fax: N/A Email: N/A Care Team Name Role Phone Fax Email Nadine Augustin R.N. Kidney Coordinator N/A N/A N/A Events Pre-Donation Referred: 05/03/2022
--- OUTSIDE RECORDS SUMMARY | 2024-09-28 06:50 | XMS_ITS | Clinical Summary ---
Author Organization [facility] Address [address] [place] [address] Care Team Providers Care Executive Assistant To President Name Role Phone Unavailable Primary Care Provider Unavailabl e Source Comments [facility] is fully rolled out with thefollowing exceptions:General Clinical Research [facility] Social History Tobacco Use Types Packs/Day [...]
--- OUTSIDE RECORDS SUMMARY | 2024-09-28 06:51 | XMS_ITS | Encounter Summary ---
Author Organization [facility] Address [address] [place] [address] Care Team Providers Care Router Operator Radial Name Role Phone Unavailable Primary Care Provider Unavailabl e Reason for Referral * Consultation (Routine) - Closed Specialty Diagnoses / Procedures Referred By Contac t Referred To Contact Nephrology Diagnoses Hypokalemia Liborio Weller MD [address] [facility] [address] [place] [address] Phone: tel: fax: [facility] Nephrology, Bone & Mineral Metabolism [address] [facility], [address] [place] [address] Phone: tel: fax: Referral ID Status Reason Start Date Expiration Date V isits Requested Visits Authorized [id number] Closed Specialty Services Required 09/14/2024 03/16/2026 1 1 Scheduling Instructions Severe hypokalemia in the setting of Encounter Details Date Type Department Care Team (Late st Contact Info) Description 09/14/2024 Telephone [facility] Obstetrics & Gynecology [address] [place] [address] Susi Wren MD [address] [place] [address] Social History Tobacco Use Types [...] had an outpatient workup with Nephrology at [facility] that was negative, she was [...] Description 10/24/2024 8:00 AM EDT Office Visit [facility] [address] [facility], [address] [place] [address] Nneka Block MD [address] [place] [phone] 12/25/2024 1:00 PM EST Office Visit [facility] Nephrology, Bone & Mineral Metabolism [address] [facility], [address] [place] [address] Scheduled Referrals Name Type Priority Associated Diagnoses Order Schedule Ambulatory referral to Nephrology Clinic Outpatient Referral Routine Hypokalemia 1 Occurrences starting 09/14/2024 until 03/18/2026 documented as of this encounter Visit Diagnoses Diagnosis Hypokalemia- Primary Hypopotassemia documented in this encounter
--- OUTSIDE RECORDS SUMMARY | 2024-09-28 06:51 | XMS_ITS | Encounter Summary ---
Author Organization [facility] Address [address] [place] [address] Care Team Providers Care Pot Room Supervisor Name Role Phone Norma Friedman BARBACK Primary Care Provider [phone] Lizz Trinh RN Unavailable Unavailable Encounter Details [...] more drinks on one occasion? Never 09/23/2024 [place] Depression Scale Answer Date Recorded [place] Depression Scale Total 0 09/23/2024 The thought [...] Description 10/24/2024 8:00 AM EDT Office Visit [facility] [place] [address] [facility], [address] [place] [address] Nneka Block MD [address] [place] [address] 12/25/2024 1:00 PM EST Office Visit [facility] Nephrology, Bone & Mineral Metabolism [address] [facility], [address] [place] [address] documented as of this encounter Visit Diagnoses Not on filedocumented in this encounter Additional Health Concerns Assessment Noted Time A fall risk assessment has been complete d for the patient 09/26/2024 8:15 AM EDT A Body Mass Index follow-up plan has been documented for the patient 09/27/2024 10:22 AM EDT documented as of this encounter Care Teams Pot Room Supervisor Relationship Specialty Start Date End Date Norma Friedman APRN [address] [place] [address] PCP - General 09/23/24 Lizz Trinh, RN [facility] Registered Nurse Cardiology 09/26/24 documented as of this encounter
--- OUTSIDE RECORDS SUMMARY | 2024-09-28 06:51 | XMS_ITS | Encounter Summary ---
Author Organization [facility] Address [address] [place] [address] Care Team Providers Care Acoustic Warfare Analyst Name Role Phone Norma Friedman APRN Primary Care Provider +1- [phone] Encounter Details Date Type Department Care Team [...] more drinks on one occasion? Never 09/23/2024 [place] Depression Scale Answer Date Recorded [place] Depression Scale Total 0 09/23/2024 The thought [...] Description 10/24/2024 8:00 AM EDT Office Visit [facility] [place] [facility] [address] [facility], [address] [place] [phone] Nneka Block MD [address] [place] [address] 12/25/2024 1:00 PM EST Office Visit [facility] Nephrology, Bone & Mineral Metabolism [address] [facility], [address] [place] [address] documented as of this encounter Visit Diagnoses Not on filedocumented in this encounter Additional Health Concerns Assessment Noted Time A fall risk assessment has been complete d for the patient 09/25/2024 3:05 PM EDT A Body Mass Index follow-up plan has been documented for the patient 09/23/2024 8:28 PM EDT documented as of this encounter Care Teams Acoustic Warfare Analyst Relationship Specialty Start Date End Date Norma Friedman APRN [address] [place] [address] PCP - General 09/23/24 documented as of this encounter
--- OUTSIDE RECORDS SUMMARY | 2024-09-28 06:51 | XMS_ITS | Clinical Summary ---
Author Organization Healthcare Address [address] [place] [address] Care Team Providers Care Master Rigger Name Role Phone Norma Friedman JOLENE Primary Care Provider [phone] Lizz Trinh RN Unavailable Unavailable Allergies Active [...] dermatitis with skin contact Medications Prenat MV-Min w/Qy-Bqpiwv-MWS ( COMPLETE PO) 019 Active potassium chloride CR 10 MEQ PO [...] chew. 60 tablet 1 025 2024 Discontinued [id number]-[id number]-F A ( 1 + IRON PO) 2024 Discontinued Active Problems Problem Noted Date Diagnosed Date Hypokalemia 09/25/2024 Estimated Date of Delivery Comme nts Yes 12/01/2024 Encounters Date Type Department Care Team Description 09/26/2024 9:06 AM EDT - 09/26/2024 11:59 PM EDT Hospital Encounter Medical Office Building Cardiac Diagnostic Testing Medical Office Building Echo Lab [address], [address] [place] [address] Palpitations; Syncope and collapse Discharge Disposition: Home or Self Care 09/26/2024 8:00 AM EDT Office Visit [facility] [place] [address], [address] [place] [address] Nneka Block MD Syncope and collapse (Primary Dx); Atrial fibrillation, unspecified type (CMS/HCC); Palpitations 09/26/2024 Travel 09/25/2024 2:20 PM EDT Office Visit [facility] Nephrology, Bone & Mineral Metabolism [address], [address] [place] [address] Hypokalemia (Primary Dx) 09/25/2024 Travel 09/23/2024 10:00 AM EDT Office Visit Medical Office Building Obstetrics and Gynecology [address], [address] [place] [address] Liborio Weller MD Supervision of high risk , antepartum (Primary Dx); Cardiac arrhythmia, unspecified cardiac arrhythmia type 09/23/2024 Travel 09/17/2024 Telephone [facility] Nephrology, Bone & Mineral Metabolism [address], [address] [place] [address] Sherley Gold, DOUBLE BACK OPERATOR 09/17/2024 Telephone Medical [facility] Obstetrics and Gynecology [address], [address] [place] [address] Josefina Shay, RN 09/14/2024 Telephone [facility] Obstetrics & Gynecology [address] [place] [address] Susi Wren MD 07/22/2024 [facility] [address] [place] [address] Staci Jain MD History of proteinuria syndrome (Primary Dx); care, subsequent , second trimester 07/22/2024 [facility] [address] [place] [address] Sandy Cardenas MD from Last 3 Months [...] more drinks on one occasion? Never 09/23/2024 [place] Depression Scale Answer Date Recorded [place] Depression Scale Total 0 09/23/2024 The thought [...] Description 10/24/2024 8:00 AM EDT Office Visit [facility] [place] [address], [address] [place] [address] Nneka Block MD [address] [place] [address] 12/25/2024 1:00 PM EST Office Visit [facility] Nephrology, Bone & Mineral Metabolism [address], [address] [place] [address] Health Maintenance Due Date Last Done Comments [facility]-Infant/Child/Adol SDOH Screenings 1991 [facility]-Varicella Vaccines (1 of 2 - 13+ 2-dose series) 2004 [facility]- SDOH Screenings 2009 [facility]-Adult SDOH Screenings 2009 [facility]-Hepatitis B Vaccines (1 of 3 - 19+ 3-dose series) 2010 [facility]-Pap Smear 2012 [facility]-Cervical Cancer Screening 2021 [facility]-HPV/Cotest 2021 [id number] Vaccine (2 - season) 2023 05/04/2022 [facility]-Influenza [...] C Screening Completed 01/22/2019 [facility]-Obesity Intervention Completed 09/26/2024, 09/06 [facility]-HIB Vaccines Aged Out No longer e [...] Procedure Name Priority Date/Time Associated Diagnosis Comments CHLORIDE, RANDOM URINE Routine 10:07 AM EDT Hypokalemia PROTEIN, URINE, RANDOM WITH CREATININE Routine 09/26/2024 10:03 AM EDT Hypokalemia SODIUM, URINE, RANDOM Routine 09/26/2024 10:02 AM EDT Hypokalemia OSMOLALITY, URINE Routine 09/26/2024 10: 02 AM EDT Hypokalemia POTASSIUM, URINE, RANDOM Routine 09/26/2024 10:02 AM EDT Hypokalemia OSMOLALITY, SERUM Routine 09/26/2024 9:3 2 AM EDT Hypokalemia RENAL FUNCTION PANEL, PLASMA Routine 09/26/2024 9:32 AM EDT Hypokalemia RHEUMATOID FACTOR, PLASMA Routine 09/26/2024 9:32 AM EDT Hypokalemia ECG ADULT Routine 09/26/2024 8:21 AM EDT [...] Recently Relevant to Health Maintenance Results * Chloride, urine, random (09/26/2024 10:07 AM EDT) Chloride, Urine 25 mmol/L 2:03 PM EDT [facility] Urine Urine specimen obtained by clean catch procedure / Unknown Non-blood Collection / Unknown 09/26/2024 10:07 AM EDT 09/26/2024 10:07 AM EDT us Bill Patrick MD LAB URINE ORDERABLES Final Resul t [facility] [address] [place] [address] * Protein, Random, Urine with Creatinine (09/26/2024 10:03 AM EDT) Protein, Urine 26 mg/dL 09/26/2024 12:08 PM EDT [facility] Creatinine, Urine 199 mg/dL 09/26/2024 12:08 PM EDT [facility] Protein/Creati nine Ratio 0.1 mg/mg Creat 09/26/2024 12:08 PM EDT [facility] Urine Urine specimen obtained by clean catch procedure / Unknown Non-blood Collection / Unknown 09/26/2024 10:03 AM EDT 09/26/2024 10:04 AM EDT us Bill Patrick MD LAB URINE ORDERABLES Final Resul t Performing Organization Address City/[facility] Co de Phone Number [facility] [address] [place] [address] * Sodium, urine, random (09/26/2024 10:02 AM EDT) Sodium, Urine 110 mmol/L 09/26/2024 11:55 AM EDT [facility] Urine Urine specimen obtained by clean catch procedure / Unknown Non-blood Collection / Unknown 09/26/2024 10:02 AM EDT 09/26/2024 10:02 AM EDT us Bill Patrick MD LAB URINE ORDERABLES Final Resul t Performing Organization Address [facility] de Phone Number [facility] [address] [place] [address] * Potassium, urine, random (09/26/2024 10:02 AM EDT) Potassium, Urine 43 mmol/L 09/26/2024 11:55 AM EDT [facility] Urine Urine specimen obtained by clean catch procedure / Unknown Non-blood Collection / Unknown 09/26/2024 10:02 AM EDT 09/26/2024 10:02 AM EDT us Bill Patrick MD LAB URINE ORDERABLES Final Resul t Performing Organization Address City/[facility] Co de Phone Number [facility] [address] [place] [address] * Osmolality, urine (09/26/2024 10:02 AM EDT) Osmolality, Urine 404 50 - 1,200 mOsm/kg 09/26/2024 1:48 PM EDT [facility] Urine Urine specimen obtained by clean catch procedure / Unknown Non-blood Collection / Unknown 09/26/2024 10:02 AM EDT 09/26/2024 10:02 AM EDT us Bill Patrick MD LAB URINE ORDERABLES Final Resul t [facility] [address] [place] [address] * Rheumatoid factor, plasma (09/26/2024 9:32 AM EDT) Rheumatoid Factor, Plasma <10 <14 IU/mL 09/26/2024 1:49 PM EDT [facility] Blood Venous blood specimen / Unknown Venipuncture / Unknown 09/26/2024 9:32 AM EDT 09/26/2024 9:32 AM EDT us Bill Patrick MD LAB BLOOD ORDERABLES Final Resul t Performing Organization Address [facility]/ZIP Co de Phone Number [facility] [address] [place] [address] * (ABNORMAL) Osmolality (09/26/2024 9:32 AM EDT) Osmolality, Serum 273(L) 275 - 295 mOsm/Kg 09/26/2024 2:10 PM EDT [facility] Blood Venous blood specimen / Unknown Venipuncture / Unknown 09/26/2024 9:32 AM EDT 09/26/2024 9:32 AM EDT us Bill Patrick MD LAB BLOOD ORDERABLES Final Resul t Performing Organization Address City/[facility]/ZIP Co de Phone Number [facility] [address] [place] [address] * (ABNORMAL) Renal function panel (09/26/2024 9:32 AM EDT) Glucose, Plasma 87 74 - 99 mg/dL 09/26/2024 12:24 PM EDT [facility] BUN, Plasma 5(L) 7 - 21 mg/dL 09/26/2024 12:24 PM EDT [facility] Creatinine, Plasma 0.72 0.60 - 1.10 mg/dL 09/26/2024 12:24 PM EDT [facility] BUN/Creatinine Ratio 7 09/26/2024 12:24 PM EDT [facility] Sodium, Plasma 135(L) 136 - 145 mmol/L 09/26/2024 12:24 PM EDT [facility] Potassium, Plasma 3.1(L) 3.6 - 4.9 mmol/L 09/26/2024 12:24 PM EDT [facility] Chloride, Plasma 95(L) 97 - 107 mmol/L 09/26/2024 12:24 PM EDT [facility] CO2, Plasma 26 22 - 29 mmol/L 09/26/2024 12:24 PM EDT [facility] Anion Gap 14 6 - 16 mmol/L 09/26/2024 12:24 PM EDT [facility] Total Calcium, Plasma 9.4 8.9 - 10.2 mg/dL 09/26/2024 12:24 PM EDT [facility] Phosphorus, Plasma 3.5 2.5 - 4.5 mg/dL 09/26/2024 12:24 PM EDT [facility] Albumin, Plasma 3.6 3.5 - 5.2 g/dL 09/26/2024 12:24 PM EDT [facility] eGFRcr 113.4 mL/min/1.7 3m*2 09/26/2024 12:24 PM EDT [facility] Comment:Reported eGFRcr in m L/min/1.73m2 is based the CKD-EPI 2020 equation that does not use a race coefficient. Blood Venous blood specimen / Unknown Venipuncture / Unknown 09/26/2024 9:32 AM EDT 09/26/2024 9:32 AM EDT us Bill Patrick MD LAB BLOOD ORDERABLES Final Resul t [facility] [address] [place] [address] * ECG Adult (Now - Performed in your clinic) (09/26/2024 8:21 AM EDT) EKG DIAGNOSIS CLASS Normal MUSE ECG Ventricular Rate 84 BPM MUSE ECG Atrial Rate 84 BPM MUSE ECG SC Interval 148 ms MUSE ECG QRSD Interval 74 ms MUSE ECG QT Interval 374 ms MUSE ECG QTC Interval 441 ms MUSE ECG P [place] 60 degrees MUSE ECG R [place] 36 degrees MUSE ECG T Wave [place] 55 degrees MUSE ECG Diagnosis Normal sinus rhythm with sinus arrhythmia MUSE ECG Diagnosis Normal ECG MUSE ECG Diagnosis MUSE ECG Diagnosis Confirmed by Abad South ([id number]) on 09/26/2024 12:13:59 PM MUSE ECG 09/26/2024 8:21 AM EDT 09/26/2024 12:13 PM EDT us Nneka Block MD ECG ORDERABLES Final Resu lt MUSE ECG * (ABNORMAL) POCT Urinalysis Dipstick (09/23/2024 10:54 AM EDT) POCT Urine Color Yellow POCT Urine Clarity Clear POCT Glucose Urine Negative Negative mg/dL POCT Bilirubin, Urine Small(A) Negative POCT Ketones, Urine 40(A) Negative mg/dL POCT Specific [place], Urine 1.015 POCT Blood, Urine Negative Negative POCT pH, Urine >=9.0(A) 5.0 to 8.0 POCT Protein, Urine 100(A) Negative mg/dL POCT Urobilinogen, Urine 0.2 0.2, 1 E.U./dL POCT Nitrite, Urine Negative Negative POCT Leukocyte Esterase, Urine Negative Negative Test Strip Lot Number [id number] Test Strip Lot Expiration 07/2025 Urine Urine specimen obtained by clean catch procedure / Unknown 09/23/2024 10:54 AM EDT us Liborio Weller MD POINT OF CARE TEST [...] ORDERABLES Fin al Result Performing Organization Address City/State/[facility] Co de Phone Number [facility] * Hepatitis C Antibody (01/22/2019 9:57 AM EST) Hepatitis C Antibody NEGATIVE Reference Range: Negative [facility] 01/22/2019 9:57 AM EST 01/22/2019 12:12 PM EST Pradip Damcio APRN, CNM LAB BLOOD ORDERABLES Fin al Result Performing Organization Address City/[facility] Co de Phone Number [facility] from Last 3 Months or Most Recently Relevant to Health Maintenance Insurance [facility] MEDICAID Care Teams Master Rigger Relationship Specialty Start Date End Date Norma Friedman APRN [address] [place] [address] [place] [address] PCP - General 09/23/24 Lizz Trinh, RN [id number] Registered Nurse Cardiology 09/26/24
--- OUTSIDE RECORDS SUMMARY | 2024-09-28 06:51 | XMS_ITS | Encounter Summary ---
Author Organization Healthcare Address [address] [place] [address] Care Team Providers Care Date Pitter Name Role Phone Unavailable Primary Care Provider Unavailabl e Encounter Details Date Type Department Care Team (Late Contact Info) Description 09/17/2024 Telephone [facility] Nephrology, Bone & Mineral Metabolism [address], [address] [place] [address] Sherley Gold, VINEYARDIST GS - 7 MAIN MEDICAL-SURGICAL Social History [...] Description 10/24/2024 8:00 AM EDT Office Visit [facility] [place] [address], [address] [place] [address] Nneka Block MD [address] [place] [address] 12/25/2024 1:00 PM EST Office Visit [facility] Metabolism [address], [address] [place] [address] documented as of this encounter Visit Diagnoses Not on filedocumented in this encounter
--- OUTSIDE RECORDS SUMMARY | 2024-09-28 06:51 | XMS_ITS | Clinical Summary ---
Author Organization [facility] Address [address] [place] [address] Care Team Providers Care Measurement Operator Name Role Phone Norma Friedman APRN Primary Care Provider + [phone] Allergies Active Allergy Reactions Criticality Noted Date [...] Type Department Care Team Description 5 Documentation [facility] LABOR DELIVERY [address] [place] [address] Christy Zabala RN 5 Results Follow-Up [facility] [address] [place] [address] Rob Wharton MD [address] [facility] [address] [facility] [address] [place] [address] Rob Wharton MD 5 10:00 AM EDT Routine [facility] [address] [place] [address] Rob Wharton MD GA: 26w4d 5 Travel [address] [facility] OBGYN [address] [address] Rob Wharton MD [address] [facility] [address] [place] [address] Rob Wharton MD 5 1:44 PM EDT Anesthesia Event [facility] ENDO SUITES [address] [place] [address] Akash Anguiano MD Lanham, John, CRNA 5 1:33 PM EDT - 5 2:05 PM EDT Surgery [facility] END[facility] SU[facility] [address] [place] [address] Blu Alvarado MD ESOPHAGOGASTRODUODENOSCOPY [95080 (CPT )] 5 1:59 PM EDT - 5 4:28 PM EDT Hospital Encounter [facility] ANTEPARTUM [address] [place] [address] Rob Wharton MD Brunner, Mark I, MD Dysphagia, unspecified type (Primary Dx) Discharge Disposition: Home or Self Care 5 10:15 AM EDT Routine [facility] [address] [place] [address] Jacey Mathews, WIRE TECHNICIAN GA: w [address] [facility] [address] [place] [address] Jacey Mathews, WIRE TECHNICIAN 5 Travel 5 Patient Outreach [facility] DELIVERY [address] [place] [address] Christy Zabala RN 5 9:10 AM EDT Routine [facility] [address] [facility] [address] [place] [address] Rob Wharton MD [place]: 5 8:00 AM EDT Office Visit [facility] MATERNAL MEDICINE [address] [facility] [address] [place] [address] Sebastian Larsen MD History of prior with small for gestational age (Primary Dx) 5 7:44 AM EDT - 5 11:59 PM EDT Hospital Encounter [facility] US PER DIAG CTR [address] [place] [address] Kelly Delgado, WIRE TECHNICIAN care, antepartum, unspecified ; High risk due to history of labor, antepartum; History of prior with small for gestational age Discharge Disposition: Home or Self Care 5 Travel 5 Results Follow-Up [facility] [address] [facility] [address] [place] [address] Kelly Delgado APRN 5 10:10 AM EDT Routine [facility] [address] [facility] [address] [place] [address] Kelly Delgado, WIRE TECHNICIAN GA: 18w5d 5 9:30 AM EDT Ancillary Procedure [facility] [address] [facility] [address] [place] [address] care in second trimester, unspecified 5 Travel [address] [facility] [address] [facility] [address] [place] [address] Uriel Russ MD TRANSFER OF CARE REQ 5 10:15 PM EDT - 5 11:59 PM EDT Hospital Encounter [facility] LABOR DELIVERY [address] [place] [phone] Rob Wharton MD Mirsky, Elizabeth, MD Discharge Disposition: Home or Self Care 5 Travel [address] [facility] OBGYN [address] [facility] [address] [place] [address] Uriel Russ MD PARROTT-SAME DAY RS, OB [address] [facility]BGYN [address] [facility] [address] [place] [address] Uriel Russ MD FY 5 E-Visit [facility] [address] [place] [address] [place] [address] E-Visit, MD Toni from Last 3 Months Family History Medical [...] and heating? Not hard at all 05/28/2024 [facility] - [...] Visit [facility] GASTROENTEROLOGY [address] [facility] [address] [place] [address] Robbin Escalante MD [address] [facility] [address] [place] [address] Health Maintenance Due Date Last Done [...] 08/20/2024 1:55 PM EDT Dysphagia, unspecified type SD ESOPHAGOGASTRODUODENOSCOP Y TRANSORAL DIAGNOSTIC 08/20/2024 1:44 PM EDT Dysphagia, unspecified type UPPER GI ENDOSCOPY 08/20/2024 1:09 PM EDT BASIC METABOLIC PANEL STAT 08/20/2024 5:25 AM EDT POTASSIUM STAT 08/19/2024 8:53 PM EDT ABORH 2ND SPECIMEN VERIFICATION STAT 08/19/2024 4:34 PM EDT NONSTRESS TEST Routine 08/19/2024 4:17 PM EDT [facility] Routine 08/19/2024 3:25 [...] 10:02 AM EDT Multigravida in second trimester [facility] Routine 07/22/2024 9:10 AM EDT care, antepartum, unspecified High risk due to history of labor, antepartum History of prior with small for gestational age POCT URINALYSIS DIPSTICK, MANUAL Routine 07/05/2024 10:41 AM EDT care, antepartum, unspecified OB 14 + WEEKS SINGLE OR FIRST [...] - 08/30/2024 6:09 AM EDT Performed at: [address] [place] [id number] Supervisor Twisting Department: Kevin Harman MD, Phone: [phone] Patient Fasting: N us Rob Wharton MD LAB BLOOD ORDERABLES Final Result [facility] (AMBULATORY) [address] [place] [address], [place] [phone] [facility] [address] [place] [address], * (ABNORMAL) Comprehensive Metabolic Panel (08/29/2024 11:05 AM EDT) Only the most recent of2 resultswithin the time period is included. Pathologist [facility] Glucose 72 65 - 99 mg/dL [...] 11:0 5 AM EDT 08/29/2024 Narrative [facility] (AMBULATORY) - 08/30/2024 6:09 AM EDT Performed at: [address] [place] [address] [id number] Supervisor Twisting Department: Kevin Harman MD, Phone: [phone] Patient Fasting: N us Rob Wharton MD LAB BLOOD ORDERABLES Final Result Performing Organization Address City/[facility]/ZIP Co de Phone Number [facility] (AMBULATORY) [address] [place] [address], [place] [phone] [facility] [address] [place] [address], [place] [phone] * (ABNORMAL) POC Urinalysis Dipstick (08/29/2024 10:13 AM EDT) Only the most recent of3 resultswithin the time period is included. Pathologist [facility] Glucose, UA Negative Negative mg/dL [facility] Protein, POC Trace(A) Negative mg/dL [facility] Urine 08/29/2024 10:1 3 AM EDT Rob Wharton MD POINT OF CARE TEST OR DERABLES Final Result Performing Organization Address City/[facility]/ZIP Co de Phone Number [facility]
[address] [place] [address], [place] [phone] * BH AN ETT AIRWAY (08/20/2024 2:02 [...] bilaterally with symmetric chest rise and fall [facility] ANESTHESIA ORDERABLES Final Res ult * Tissue Pathology Exam (08/20/2024 1:55 PM EDT) Case Report Surgical Pathology Report Case: [id number] Authorizing Provider: Blu Alvarado MD Collected: 08/20/2024 01:55 PM Ordering Location: [facility] Received: 08/20/2024 02:14 PM ENDO SUITES Pathologist: Khalida Rhoades DO Specimen: Gastric, Antrum, antrum bx for path 08/22/2024 9:18 AM EDT [facility] Clinical Information Dysphagia, unspecified type 08/22/2024 9:18 AM EDT [facility] Final Diagnosis Stomach, antrum, biopsy: 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 pylori is negative (no organisms are identified) Negative for intestinal metaplasia, dysplasia, or malignancy 08/22/2024 9:18 AM T [facility] at 0918 EDT Gross Description 1. Gastric, Antrum. Received in formalin labeled antrum biopsy is a 0.4 x 0.2 x 0.2 cm pink-see soft tissue fragment submitted entirely in a single cassette. HDM 08/22/2024 9:18 AM EDT [facility] Microscopic Description The slides are reviewed and demonstrate histopathologic features supporting the above rendered diagnosis. 08/22/2024 9:18 AM EDT [facility] Tissue Pyloric antrum structure / Unknown 08/20/2024 1:55 PM EDT 08/20/2024 2:14 PM EDT us Blu Alvarado MD PATHOLOGY/CYTOLOGY ORDERABLES Final Result [facility]
[address] [place] [address], [place] [phone] * Upper GI Endoscopy (08/20/2024 1:09 PM EDT) us Blu Alvarado MD INTERFACE NEEDS Final Result * (ABNORMAL) Basic Metabolic Panel (08/20/2024 5:25 AM EDT) Glucose 84 65 - 99 mg/dL 08/20/2024 6:13 AM EDT [facility] BUN 2.3(L) 6.0 - 20.0 mg/dL 08/20/2024 6:13 AM EDT [facility] Creatinine 0.51(L) 0.57 - 1.00 mg/dL 08/20/2024 6:13 AM EDT [facility] Sodium 139 136 - 145 mmol/L 08/20/2024 6:13 AM EDT [facility] Potassium 3.5 3.5 - 5.2 mmol/L 08/20/2024 6:13 AM EDT [facility] Chloride 109(H) 98 - 107 mmol/L 08/20/2024 6:13 AM EDT [facility] CO2 23.5 22.0 - 29.0 mmol/L 08/20/2024 6:13 AM EDT [facility] Calcium 7.8(L) 8.6 - 10.5 mg/dL 08/20/2024 6:13 AM EDT [facility] BUN/Creatinine Ratio 4.5(L) 7.0 - 25.0 08/20/2024 6:13 AM EDT [facility] Anion Gap 6.5 5.0 - 15.0 mmol/L 08/20/2024 6:13 AM EDT [facility] eGFR 126.6 >60.0 mL/min/1.7 3 08/20/2024 6:13 AM EDT [facility] Blood Venipuncture / Unknown 08/20/2024 5:25 AM EDT 08/20/2024 5:46 AM EDT Narrative [facility] - 08/20/2024 6:13 AM EDT [...] LAB BLOOD ORDERABLES Final Resu lt [facility]
[address] [place] [address], * (ABNORMAL) Potassium (08/19/2024 8:53 PM EDT) Potassium 2.7(L) 3.5 - 5.2 mmol/L 08/19/2024 9:20 PM EDT [facility] Blood Venipuncture / Unknown 08/19/2024 8:53 PM EDT 08/19/2024 9:04 PM EDT Kt Fan DO LAB BLOOD ORDERABLES Final Result [facility]
[address] [place] [address], * ABO RH Specimen Verification (08/19/2024 4:34 PM EDT) ABO Type O 08/19/2024 7:39 PM EDT [facility] BB LABORATORY RH type Positive 08/19/2024 7:39 PM EDT [facility]OR[facility] Blood Venipuncture / Unknown 08/19/2024 4:34 PM EDT 08/19/2024 4:53 PM EDT Rob Wharton MD BLOOD BANK TEST ORDER FRANCO Final Result [facility] BB LABORATORY
[address] [place] [address], * [facility] (08/19/2024 3:25 PM EDT) Only the most recent of2 resultswithin the time period is included. Anatomical Region Laterality Modality Ultrasound 08/19/2024 3:09 PM EDT Narrative 08/19/2024 4:54 PM EDT PAT NAME: CAROLE GIRARD MED REC#: [id number] DA: [id number] PAT GEND: F PAT TYPE: E EXAM TRAVIS: [id number] REF PHYS ROB WHARTON Comparison Studies The [...] EFW (oz) 9 oz EFW by: Hadlock ([id number]-[id number]-FL) Extended Cav. septi pel. tr 4.7 mm Vp [employer] 3.8 mm CM 7.5 mm 84% Nicolaides [...] Heart / Thorax 3-vessel view: Appears normal 3-kjrtoc-anpvyte view: Appears normal Stomach: Appears normal Kidneys: [...] in 4wks for growth. Coding ======= Description: [id number] Follow Up Marine Equipment Engineer: RT Annetta Hartmann , [facility] Physician: Jo Chappell MD Electronically signed by: Jo Chappell MD at: 16:54 Procedure Note Jo Chappell MD - 08/19/2024 PAT NAME: CAROLE GIRARD MED REC#: [id number] DA: 1990 PAT GEND: F PAT TYPE: E EXAM TRAVIS: [id number] REF PHYS ROB WHARTON Comparison Studies The findings of this study are compared to the prior ultrasound studydated 07/22/24 Patient Status Inpatient Indication ======== History of c/s x1. History of . Vaginal bleeding. Maternal Assessment Nxpgml201 cm Height (ft)5 ft Height (in)4 in Qcjlcr24 kg Weight (lb)158 lb BMI27.31 kg/m Method ======= Transabdominal ultrasound examination. View: Limited by patient bodyhabitus ========= Love . Number of fetuses: 1 Dating ====== Method of dating:based on stated DUSTY GA by prior [id number] w + 1 d DUSTY by prior assessment:12/01/2024 Ultrasound examination on:08/19/2024 GA by U/S based upon:AC, BPD, Femur, HC GA by U/S24 w + 2 d DUSTY by U/S:12/07/2024 Previous dating:based on stated DUSTY, selected on 07/22/2024 Agreed DUSTY of previous datin12/01/2024 Assigned:based on stated DUSTY, selected on 08/19/2024 Assigned GA25 w + 1 d Assigned DUSTY:12/01/2024 [id number] d Biometry Standard BPD57.6 mm 23w 4d 5% Hadlock OFD81.6 mm 26w 4d 88% Jamal HC225.7 mm 24w 4d 13% Hadlock Cerebellum tr28.9 mm 25w 2d 62% Hill AC194.9 mm 24w 1d 15% Hadlock Femur44.9 mm 24w 6d 27% Hadlock Gbrwomz98.3 mm 25w 3d 50% Jamal HC / AC1.16 WSZ919 g 24w 2d 16% Hadlock EFW (lb)1 lb EFW (oz)9 oz EFW by:Hadlock (FGD-PA-PF-FL) Extended Cav. septi pel. tr4.7 mm Vp3.8 mm CM7.5 mm 84% Nicolaides Head / Face / Neck Cephalic index0.71 <1% Nicolaides Extremities / Bony Struc FL / BPD0.78 FL / HC0.20 FL / AC0.23 Other Structures HDR338 bpm General Evaluation Cardiac activity present. FHR [...] normal Heart / Thorax 3-vessel view:Appears normal 9-lckega-wfofxsu view:Appears normal Stomach:Appears normal Kidneys:Appears normal Bladder:Appears normal Gender:female Wants to know gender:yes Maternal Structures Uterus / Cervix Cervix:Visualized Approach:Transabdominal Cervical nitcyk56.9 mm Doppler Arterial Umbilical A PI1.01 32% [...] office in 4wks for growth. Coding ======= Description:[id number] Follow Up Marine Equipment Engineer: Alison Verduzco RT R , [facility] Physician: Jo Chappell MD Electronically signed by: oJ Chappell MD at: 16:54 Kt Fan DO IMG US ORDERABLES Final Res ult * Urinalysis, Microscopic Only - Urine, Clean Catch (08/19/2024 3:02 PM EDT) Only the most recent of2 resultswithin the time period is included. RBC, UA 0-2 None Seen, 0-2 /HPF 08/19/2024 3:33 PM EDT [facility] WBC, UA 0-2 None Seen, 0-2 /HPF 08/19/2024 3:33 PM EDT [facility] Bacteria, UA None Seen None Seen /HPF 08/19/2024 3:33 PM EDT [facility] Squamous Epithelial Cells, UA 0-2 None Seen, 0-2 /HPF 08/19/2024 3:33 PM EDT [facility] Hyaline Casts, UA None Seen None Seen /LPF 08/19/2024 3:33 PM EDT [facility] Methodology Automated Microscopy 08/19/2024 3:33 PM EDT [facility] Urine Urine specimen obtained by clean catch procedure / Unknown Collection / Unknown 08/19/2024 3:02 PM EDT 08/19/2024 3:13 PM EDT Kt Fan DO URINE ORDERABLES Final Resu lt [facility]
[address] [place] [address], [place] [phone] * (ABNORMAL) Urinalysis With Microscopic If Indicated (No Culture) - Urine, Clean Catch (08/19/2024 3:02 PM EDT) Only the most recent of2 resultswithin the time period is included. Color, UA Yellow Yellow, Straw 08/19/2024 3:33 PM EDT [facility] Appearance, UA Clear Clear 08/19/2024 3:33 PM EDT [facility] pH, UA >=9.0(H) 5.0 - 8.0 08/19/2024 3:33 PM EDT [facility] Specific [place], UA 1.018 1.005 - 1.030 08/19/2024 3:33 PM EDT [facility] Glucose, UA Negative Negative 08/19/2024 3:33 PM EDT [facility] Ketones, UA 15 mg/dL (1+)(A) Negative 08/19/2024 3:33 PM EDT [facility] Bilirubin, UA Negative Negative 08/19/2024 3:33 PM EDT [facility] Blood, UA Negative Negative 08/19/2024 3:33 PM EDT [facility] Protein, UA 30 mg/dL (1+)(A) Negative 08/19/2024 3:33 PM EDT [facility] Leuk Esterase, UA Negative Negative 08/19/2024 3:33 PM EDT [facility] Nitrite, UA Negative Negative 08/19/2024 3:33 PM EDT [facility] Urobilinogen, UA 1.0 E.U./dL 0.2 - 1.0 E.U./dL 08/19/2024 3:33 PM EDT [facility] Urine Urine specimen obtained by clean catch procedure / Unknown Collection / Unknown 08/19/2024 3:02 PM EDT 08/19/2024 3:13 PM EDT us Kt Fan DO URINE ORDERABLES Final Resu lt [facility]
[address] [place] [address], * (ABNORMAL) CBC Auto Differential (08/19/2024 3:02 PM EDT) [facility] WBC 9.19 3.40 - 10.80 10*3/mm3 08/19/2024 3:23 PM EDT [facility] RBC 3.58(L) 3.77 - 5.28 10*6/mm3 08/19/2024 3:23 PM EDT [facility] Hemoglobin 10.5(L) 12.0 - 15.9 g/dL 08/19/2024 3:23 PM EDT [facility] Hematocrit 31.4(L) 34.0 - 46.6 % 08/19/2024 3:23 PM EDT [facility] MCV 87.7 79.0 - 97.0 fL 08/19/2024 3:23 PM EDT [facility] MCH 29.3 26.6 - 33.0 pg 08/19/2024 3:23 PM EDT [facility] MCHC 33.4 31.5 - 35.7 g/dL 08/19/2024 3:23 PM EDT [facility] RDW 13.4 12.3 - 15.4 % 08/19/2024 3:23 PM EDT [facility] RDW-SD 42.4 37.0 - 54.0 fl 08/19/2024 3:23 PM EDT [facility] MPV 12.0 6.0 - 12.0 fL 08/19/2024 3:23 PM EDT [facility] Platelets 241 140 - 450 10*3/mm3 08/19/2024 3:23 PM EDT [facility] Neutrophil % 66.8 42.7 - 76.0 % 08/19/2024 3:23 PM EDT [facility] Lymphocyte % 24.4 19.6 - 45.3 % 08/19/2024 3:23 PM EDT [facility] Monocyte % 7.6 5.0 - 12.0 % 08/19/2024 3:23 PM EDT [facility] Eosinophil % 0.7 0.3 - 6.2 % 08/19/2024 3:23 PM EDT [facility] Basophil % 0.2 0.0 - 1.5 % 08/19/2024 3:23 PM EDT [facility] Immature Grans % 0.3 0.0 - 0.5 % 08/19/2024 3:23 PM EDT [facility] Neutrophils, Absolute 6.14 1.70 - 7.00 10*3/mm3 08/19/2024 3:23 PM EDT [facility] Lymphocytes, Absolute 2.24 0.70 - 3.10 10*3/mm3 08/19/2024 3:23 PM EDT [facility] Monocytes, Absolute 0.70 0.10 - 0.90 10*3/mm3 08/19/2024 3:23 PM EDT [facility] Eosinophils, Absolute 0.06 0.00 - 0.40 10*3/mm3 08/19/2024 3:23 PM EDT [facility] Basophils, Absolute 0.02 0.00 - 0.20 10*3/mm3 08/19/2024 3:23 PM EDT [facility] Immature Grans, Absolute 0.03 0.00 - 0.05 10*3/mm3 08/19/2024 3:23 PM EDT [facility] nRBC 0.0 0.0 - 0.2 /100 WBC 08/19/2024 3:23 PM EDT [facility] Blood Line / Unknown 08/19/2024 3: 02 PM EDT 08/19/2024 3:10 PM EDT us Kt Fan DO LAB BLOOD ORDERABLES Final Result [facility]
[address] [place] [address], * Protein / Creatinine Ratio, Urine - Urine, Clean Catch (08/19/2024 3:02 PM EDT) [facility] Protein/Creati nine Ratio, Urine 126.1 0.0 - [...] [facility]/ZIP Co de Phone Number [facility]
[address] [place] [address], [place] [phone] * Type & Screen (08/19/2024 3:02 PM EDT) [facility] ABO Type O 08/19/2024 3:51 PM EDT [facility] RH type Positive 08/19/2024 3:51 PM EDT [facility] Antibody Screen Negative 08/19/2024 3:51 PM EDT [facility] T&S Expiration Date 08/22/2024 11:59:59 PM 08/19/2024 3:51 PM EDT [facility] Blood Line / Unknown 08/19/2024 3: 02 PM EDT 08/19/2024 3:15 PM EDT us Kt Fan DO BLOOD BANK TEST ORDERABLES Edited Result - Final [facility]
[address] [place] [address], [place] [phone] * (ABNORMAL) Magnesium (08/19/2024 3:02 PM EDT) Magnesium 1.5(L) 1.6 - 2.6 mg/dL 08/19/2024 5:12 PM EDT [facility] Blood Line / Unknown 08/19/2024 3: 02 PM EDT 08/19/2024 3:10 PM EDT us Kt Fan DO LAB BLOOD ORDERABLES Final Result [facility]
[address] [place] [address], [place] [phone] * Lipase (08/19/2024 3:02 PM EDT) Lipase 13 13 - 60 U/L 08/19/2024 3:36 PM EDT [facility] Blood Line / Unknown 08/19/2024 3: 02 PM EDT 08/19/2024 3:10 PM EDT us Kt Fan DO LAB BLOOD ORDERABLES Final Result Performing Organization Address City/[facility]/ZIP Co de Phone Number [facility]
[address] [place] [address], [place] [phone] * Amylase (08/19/2024 3:02 PM EDT) Amylase 73 28 - 100 U/L 08/19/2024 3:36 PM EDT [facility] Blood Line / Unknown 08/19/2024 3: 02 PM EDT 08/19/2024 3:10 PM EDT us Kt Fan DO LAB BLOOD ORDERABLES Final Result Performing Organization Address City/[facility]/ZIP Co de Phone Number [facility]
[address] [place] [address], [place] [phone] * [place] Ob 14 + Weeks Single or First Gestation (07/05/2024 10:17 AM EDT) Anatomical Region Laterality Modality Body Ultrasound 07/05/2024 10:2 8 AM EDT Narrative 07/09/2024 7:02 PM EDT PAT NAME: CAROLE GIRARD MED REC#: [id number] DA: [id number] PAT GEND: F PAT TYPE: O EXAM TRAVIS: [id number] REF PHYS URIEL RUSS Scallop Shucker Comments Still need heart views and PCI [...] EFW (oz) 9 oz EFW by: Hadlock (AZQ-MS-HT-FL) Extended [employer] 6.4 mm CM 3.3 mm 11% Nicolaides [...] Heart / Thorax 3-vessel view: not visualized 9-sbkncm-qeynzwu view: not visualized Diaphragm: Appears normal Diaphragm: [...] subsequent visit to complete the anatomic screening. Scallop Shucker: Soo Harding RDMS Physician: Uriel Russ II, MD, FACOG Electronically signed by: Uriel Russ II, MD, FACOG at: 19:02 Procedure Note Uriel Russ MD - 07/09/2024 PAT NAME: CAROLE GIRARD MED REC#: [id number] DA: 1990 PAT GEND: F PAT TYPE: O EXAM TRAVIS: [id number] REF PHYS URIEL RUSS Scallop Shucker Comments Still need heart views and PCI N/L, Kidneys, Legs suboptimal Indication ======== anatomy survey Comparison Studies There are no relevant prior studies to which this study is beingcompared Method ======= [place] E6, Transabdominal ultrasound examination. View: Suboptimal view:limited by early gestational age ========= Love . Number of fetuses: 1 Dating ====== Method of dating:based on stated DUSTY GA by prior [id number] w + 5 d DUSTY by prior [...] 67% Hadlock HC / AC1.13 20% Hadlock KBR014 g 18w 6d 56% Hadlock EFW (lb)0 lb EFW (oz)9 oz EFW by:Hadlock (IHM-VA-CE-FL) Extended Vp6.4 mm CM3.3 mm 11% Nicolaides Extremities / Bony Struc FL / BPD0.80 >99% Hadlock FL / HC0.20 98% Hadlock FL / AC0.23 89% Hadlock Other Structures IHI001 bpm Anatomy Cranium:Appears normal Lateral ventricles:Appears normal Choroid plexus:Appears normal Midline falx:Appears normal Cavum septi pellucidi:Appears normal Cerebellum:Appears normal Cisterna magna:Appears normal Lips:suboptimal Profile:Appears normal Nose:suboptimal 4-chamber view:not visualized RVOT view:not visualized LVOT view:not visualized Heart / Thorax 3-vessel view:not visualized 6-wsezsb-tzfvhci view:not visualized Diaphragm:Appears normal Diaphragm:Intact Cord insertion:Appears [...] Structures Uterus / Cervix Uterus:Visualized Cervix:Visualized Cervical owlxeq72.6 mm Ovaries / Tubes / Adnexa Rt [...] a subsequent visit tocomplete the anatomic screening. Scallop Shucker: Soo Harding RDMS Physician: Uriel Russ II, MD, FACOG Electronically signed by: Uriel Russ II, MD, FACOG at: 9:02 Uriel Russ MD [facility] [place] US ORDERABLES Final Result [...] / Unknown 07/05/2024 07/05/2024 Comment:Urine Release to [facility] N[facility]ative [facility] - 07/07/2024 3:35 AM EDT Performed at: - [address] [id number] Supervisor Twisting Department: Michael Martinez PhD, Phone: [phone] Kelly Delgado APRN MICROBIOLOGY - GENERAL ORDER FRANCO Final Result [facility] (AMBULATORY) [address] [id number], [facility] [address] [place] [address], * Hepatitis C Antibody (04/12/2024) Hep C Virus Ab negative Blood Historical Provider LAB BLOOD ORDERABLES Lena l Result from Last 3 Months or Most Recently Relevant to Health Maintenance Insurance [employer] [facility] Care Teams Measurement Operator Relationship Specialty Start Date End Date Norma Friedman APRN [address] [place] G3 RAFAELA APPIAH [id number] PCP - General Family Medicine 05/14/24
--- OUTSIDE RECORDS SUMMARY | 2024-09-28 06:51 | XMS_ITS | Encounter Summary ---
Author Organization Healthcare Address [address] [place] [address] Care Team Providers Care Deputy Sheriff Civil Division Name Role Phone Norma Friedman APRN Primary Care Provider [phone] Encounter Details Date Type Department Care Team [...] more drinks on one occasion? Never 09/23/2024 [place] Depression Scale Answer Date Recorded [place] Depression Scale Total 0 09/23/2024 The thought [...] Description 10/24/2024 8:00 AM EDT Office Visit [facility] [place] [address], [address] [place] [address] Nneka Block MD [address] [place] [address] 12/25/2024 1:00 PM EST Office Visit [facility] Nephrology, Bone & Mineral Metabolism [address], [address] [place] [address] documented as of this encounter Visit Diagnoses Not on filedocumented in this encounter Additional Health Concerns Assessment Noted Time A Body Mass Index follow-up plan has been documented for the patient 09/23/2024 8:28 PM EDT documented as of this encounter Care Teams Deputy Sheriff Civil Division Relationship Specialty Start Date End Date Norma Friedman APRN [address] [place] [id number] PCP - General 09/23/24 documented as of this encounter
--- OUTSIDE RECORDS SUMMARY | 2024-09-28 06:51 | XMS_ITS | Encounter Summary ---
Author Organization [facility] Address [address] [id number] Care Team Providers Care Seismograph Observer Name Role Phone Unavailable Primary Care Provider Unavailabl e Encounter Details Date Type Department Care Team (Late st Contact Info) Description 09/17/2024 Telephone Medical Office Building Obstetrics and Gynecology [address], [address] [place] [address] Josefina Shay RN [facility] [address] [place] [address] Social History Tobacco Use Types Packs/Day Years [...] recently had a full Nephrology work-up at [facility] that was negative and was not [...] Description 10/24/2024 8:00 AM EDT Office Visit [facility] [place] [address], [address] [place] [address] Nneka Block MD [address] [place] [address] 12/25/2024 1:00 PM EST Office Visit [facility] Nephrology, Bone & Mineral Metabolism [address], [address] [place] [address] documented as of this encounter Visit Diagnoses Not on filedocumented in this encounter
[2024-09-28 09:42] VITALS: BMI 25.7
[2024-09-28 09:58] LABS: Albumin Level 3.4 g/dl (3.5-5.0); Chloride 96 mmol/L (98-107); Sodium 133 mmol/L (136-145)
[2024-09-28 10:00] LABS: Blood Urea Nitrogen 7 mg/dl (7-17); Creatinine Clearance Estimated 178 mL/min (50-200); Creatinine,Serum 0.50 mg/dl (0.52-1.04); Estimated Glomerular Filt Rate 142 ml/min (>60); GFR (African American) 172 ML/MIN (>60)
[2024-09-28 10:01] LABS: Alanine Aminotransferase 40 U/L (12-78); Albumin/Globulin Ratio 1.0 (1.1-1.8); Alkaline Phosphatase 93 U/L (38-126); Anion Gap 8.5 mEq/L (5-15); Aspartate Amino Transferase 60 U/L (14-36); Bilirubin,Total 0.7 mg/dl (0.2-1.3); Calcium 9.0 mg/dl (8.4-10.2); Carbon Dioxide 31 mmol/L (22.0-30.0); Globulin 3.3 g/dL (1.3-3.2); Glucose 83 mg/dl (74-100); Magnesium 1.2 mg/dl (1.6-2.3); Total Protein,Serum 6.7 g/dl (6.3-8.2)
[2024-09-28 10:04] LABS: Potassium 2.5 mmoL/L (3.5-5.1)
--- NOTE | 2024-09-28 10:06 | PC.NURSE ---
reported critical potassium and mag level to Dr. Justice at this time. MD gave verbal order to give 6 runs of 20meq of potassium instead of following the electrolyte protocol. Informed pt of the doctors orders. pt agreeable to stay for the extra potassium runs
[2024-09-28] MEDS: MAGNESIUM SULFATE IN WATER 2 GM/50 ML PIGGYBACK IV ×3 (10:30→12:20)
--- NOTE | 2024-09-29 21:36 | PC.NURSE ---
Patient called OB on 09/29 at 2019 and reported her most recent potassium level, recent infusions, but states she feels she had a pulmonary episode where she could not catch her breath for 5-10 seconds or questionably seized. Patient reports that she feels fine now and does not wish to come to the hospital as she states the episode may not reoccur and that she feels as at this point we have exhausted our capability of caring for her here and that she may need induced soon at a higher level facility. She wanted for OB and the MD marketing operations coordinator to be aware. Dr. Justice phoned at 2023 and relayed patient statement, MD states for RN to call patient back and encourage her to go to OB triage ROGER at a higher level care facility such as [facility] or . Patient phoned back at 2026 and told of MD's recommendation. Patient states she is going to make arrangements and proceed to do so. Patient then phoned OB unit at 2114 to state that she called both and [facility] to evaluate which option would be best and both facilities told her that their plan of care would include stabilization but antepartum care or induction would not be probable at this time without evaluation by her OB here with a decision made between this OB and M that the patient requires antepartum care or induction. Patient strongly encouraged to come for evaluation here given her reports of the episode but patient states she wishes to wait until tomorrow to consult with her OB.
== END 2024-09-28 23:59 | disposition home or self-care (01) ==
LOC: INF 06:47
PROVIDERS: PCP Nurse Practitioner Family; Visit Provider Nurse Practitioner Obstetrics & Gynecology
DX: E83.42 Hypomagnesemia (principal); F43.10 Post-traumatic stress disorder, unspecified; E87.6 Hypokalemia; O21.9 Vomiting of pregnancy, unspecified; Z3A.00 Weeks of gestation of pregnancy not specified
CPT/HCPCS: 80053; 83735; 96365; 96366; 96367; J3475; J3480

== ENCOUNTER 2024-09-30 09:41 | Observation (INO) | payer OTHER, SELFPAY ==
[2024-09-30 08:14] VITALS: BMI 26.6
[2024-09-30 08:36] LABS: Chloride 89 mmol/L (98-107); Sodium 132 mmol/L (136-145)
[2024-09-30 08:38] LABS: Blood Urea Nitrogen 7 mg/dl (7-17); Creatinine Clearance Estimated 127 mL/min (50-200); Creatinine,Serum 0.70 mg/dl (0.52-1.04); Estimated Glomerular Filt Rate 96 ml/min (>60); GFR (African American) 117 ML/MIN (>60)
[2024-09-30 08:39] LABS: Alanine Aminotransferase 63 U/L (12-78); Alkaline Phosphatase 98 U/L (38-126); Aspartate Amino Transferase 83 U/L (14-36); Bilirubin,Total 1.0 mg/dl (0.2-1.3); Calcium 9.2 mg/dl (8.4-10.2); Carbon Dioxide 34 mmol/L (22.0-30.0); Glucose 104 mg/dl (74-100); Total Protein,Serum 7.1 g/dl (6.3-8.2)
[2024-09-30 08:40] LABS: Anion Gap 11.5 mEq/L (5-15); Potassium 2.5 mmoL/L (3.5-5.1)
[2024-09-30 09:05] VITALS: BP 99/62; PULSE 114; RESP 14; TEMP 36.4; O2SAT 100
[2024-09-30 09:26] LABS: Magnesium 0.9 mg/dl (1.6-2.3)
[2024-09-30] MEDS: MAGNESIUM SULFATE IN WATER 2 GM/50 ML PIGGYBACK IV ×4 (09:45→14:30)
--- NOTE | 2024-09-30 09:52 | PC.NURSE ---
Report received from Giacomo in infusion.
[2024-09-30 10:22] LABS: Albumin Level 3.7 g/dl (3.5-5.0); Albumin/Globulin Ratio 1.1 (1.1-1.8); Globulin 3.4 g/dL (1.3-3.2)
--- NOTE | 2024-09-30 10:27 | ECG_ITS ---
APPROVED REPORT Exam: Resting ECG HR:90 bpm ECG Measurements Heart Rate 90 AXES RI 151 P 51 QRSd 82 QRS 23 QT 351 T 49 QTc 399 Conclusion SINUS RHYTHM LOW QRS VOLTAGE IN PRECORDIAL LEADS [QRS DEFLECTION < 1.0 mV IN CHEST LEADS] BORDERLINE ECG UNCONFIRMED REPORT Electronically signed by : Martín Gonsales MD 10/02/2024 08:44:15
[2024-09-30 10:48] VITALS: BP 120/71; PULSE 87; RESP 17; TEMP 36.9; O2SAT 100; BMI 26.6
[2024-09-30 11:03] LABS: Troponin I < 0.01 ng/ml (0.00-0.034)
--- NOTE | 2024-09-30 11:08 | EXP.HPDC ---
General Admission date:: 09/30/24 *Admission Date: 09/30/24 *Chief complaint: pulmonary episodes *History of present illness: Whitney Presley is a 34yo presenting today for chest pain, chest burning, pulm episodes , dizziness, syncopal episodes, concerns for seizure [] She had electrolyte replacement on monday and presents today with critical levels She complains today of pulmonay PFSH [facility] Disclaimer: The information contained in this section may have been updated after the patient was seen, as this information can be updated by other users. Medical History Generalized abdominal pain Vaginal bleeding in Nausea vomiting and diarrhea Normal esophagogastroduodenoscopy (EGD) Vaginal discharge UTI (urinary tract infection) UTI (urinary tract infection) Subchorionic hematoma Patient left without being seen Vaginal spotting Bilateral ovarian cysts Vulvar lesion Lower abdominal pain Traumatic iritis Corneal abrasion Subconjunctival hemorrhage Bright red blood per rectum Hematemesis Obstipation Irregular bowel habits Dyspepsia Early satiety Bloating Back pain Abdominal pain Low back ache Acute viral syndrome Gastroenteritis Dehydration Hypocalcemia Missed GERD (gastroesophageal reflux disease) Grand multipara History of recurrent miscarriages History of miscarriage, currently History of anemia Urinary tract infection History of gastroesophageal reflux (GERD) Endometriosis Dysmenorrhea Menorrhagia History of miscarriage History of fainting History of heavy periods Surgical History History of tympanostomy tube placement History of section Hx of section Family History Other Family history of diabetes mellitus type II Family history of myocardial infarction Social History (Updated 09/30/24 @ 10:17 by Brigitte Bryant RN) Smoking Status: Never smoker alcohol intake: never substance use type: denies use current occupational status: unemployed Travel in the last 8 weeks?: None household members: spouse housing: house 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 Have you lived/traveled outside US in past 30 days?: No Contact w/someone who lives/traveled outside US past 30 days?: No Exposure to someone with infectious disease in past 14 days?: No Do you have a fever (greater than 100.4 F or 38 C)?: No Have you tested positive for COVID-19?: No Exposed to someone with COVID-19 in past 14 days?: No Do you have a sore throat?: No Do you have a cough?: No Do you have any weakness?: No Are you experiencing any nausea/vomitting?: No Do you have any diarrhea?: No Are you experiencing any unusual bleeding?: No Do you have any muscle aches/pain?: No Do you have any abdominal pain?: No Are you experiencing loss of taste or smell?: No Other Medical History Have you received the Flu Vaccine for this season: No Have you received the Pneumonia Vaccine: No Review of Systems Review of Systems Review of systems (narrative): Review of Systems Constitutional: Denies fever, chills, and sweats Eyes: Denies vision change/ pain Respiratory: Denies cough and shortness of breath Cardiovascular: Denies chest pain and lightheadedness Gastrointestinal: Admits abdominal pain with contractions. Denies nausea, vomiting. Genitourinary: Denies dysuria and incontinence Musculoskeletal: Denies shoulder pain and back pain Neurological: Denies change in speech or headaches Exam Data for Last 24 hours Vital signs and Labs for Last 24 Hours: Temp Pulse Resp BP Pulse Ox O2 Del Method 98.5 F 87 17 120/71 100 Room Air 09/30/24 10:48 09/30/24 10:48 09/30/24 10:48 09/30/24 10:48 09/30/24 10:48 09/30/24 10:48 Laboratory Results - last 24 hr 09/30/24 08:12: Sodium 132 L, Potassium 2.5 L*, Chloride 89 L, Carbon Dioxide 34 H, Anion Gap 11.5, BUN 7, Creatinine 0.70 D, Estimated Creat Clear 127, Estimated GFR 96, Est GFR ( Amer) 117 D, Glucose 104 H, Calcium 9.2, Magnesium 0.9 L D, Total Bilirubin 1.0, AST 83 H D, ALT 63 D, Alkaline Phosphatase 98, Total Protein 7.1, Albumin 3.7, Globulin 3.4 H, Albumin/Globulin Ratio 1.1 09/30/24 10:25: Troponin I < 0.01 I & O for Last 24 hours: Intake & Output 09/27/24 09/28/24 09/29/24 09/30/24 23:59 23:59 23:59 23:59 Intake Total 200 / 200 Balance 200 / 200 Weight 155 lb Narrative: General: patient is alert oriented in no acute distress and responds appropriately to questions. HEENT: NCAT, EOMI, moist mucous membranes, neck supple with full ROM Cardiovascular: RRR +S1/S2, no murmurs or rubs Pulmonary: Clear to auscultation bilaterally, nonlabored breathing, symmetric chest rise Abdominal: Gravid abdomen appropriate for gestation. No guarding, rebound, or tenderness noted. SVE: On admission the patient was so uncomfortable the RN was not able to adequately assess the cervix. The patient was admitted, received an epidural and then was checked and noted to be 8cm. Extremities: trace edema, no tenderness or cyanosis noted Skin: Normal turgor, intact, warm. Negative for erythema, pallor, petechia, or lesions Neurologic: Negative for sensory or motor deficit Psychiatric: Normal affect, normal thought process, good judgment and insight, no depression or anxious mood appreciated. *Routine HEENT Exam Head: Present normocephalic and atraumatic Eye: Present EOMI, PERRL and normal accommodation; Absent conjunctival icterus, scleral injection, nystagmus or exophthalmos ENT: Present mucous membranes moist *Routine Respiratory Exam Respiratory: Present CTA bilaterally, normal respiratory effort, able to speak in complete sentences and symmetric chest movement; Absent accessory muscle use, decreased breath sounds, rales, respiratory distress, wheezes, distant breath sounds or diminished air movement *Routine Cardiovascular Exam Cardiovascular: Present RRR, Normal S1 and Normal S2; Absent murmur or gallop *Routine Abdominal Exam Abdominal: Present soft and normoactive bowel sounds; Absent tenderness, distended, rebound or guarding *Routine Rectal Exam Rectal:: deferred *Routine Genitalia Exam Genitalia:: normal female Meds Home Medications and Allergies Home Medications ?Medication ?Instructions ?Recorded ?Confirmed ?Type omeprazole 20 mg capsule,delayed 20 mg PO DAILY 09/02/24 09/26/24 History release vit no.95-ferrous 1 tab PO DAILY 09/02/24 09/26/24 History fumarate 28 mg-folic acid 800 mcg tablet () thiamine HCl (vitamin B1) 100 mg 100 mg PO DAILY 09/02/24 09/26/24 History tablet ferrous sulfate 325 mg (65 mg 325 mg PO DAILY #30 tabs 09/12/24 09/26/24 Rx iron) tablet (Iron (ferrous sulfate)) pyridoxine (vitamin B6) 25 mg 25 mg PO Q8H 09/17/24 09/26/24 History tablet (Vitamin B-6) metoprolol succinate 25 mg 25 mg PO DAILY 09/25/24 09/26/24 History tablet,extended release 24 hr potassium chloride 10 mEq 20 meq PO BID 09/25/24 09/26/24 History tablet,extended release(part/cryst) potassium chloride 20 mEq 40 meq (2 x 20 mEq) PO .twice #4 09/26/24 Rx tablet,extended tabs release(part/cryst) (Klor-Con M) promethazine 12.5 mg tablet 12.5 mg PO TID #90 tabs 09/27/24 Rx New Prescriptions to Start Prescriptions: Allergies Allergy/AdvReac Type Severity Reaction Status Date / Time peanut Allergy Severe Hives Verified 09/26/24 12:00 Results Data Completed and Pending Labs on day of discharge: Labs from last 24 hours 09/30/24 09/30/24 10:25 08:12 Sodium 132 L Potassium 2.5 L* Chloride 89 L Carbon Dioxide 34 H Anion Gap 11.5 BUN 7 Creatinine 0.70 D Estimated Creat Clear 127 Estimated GFR 96 Est GFR ( Amer) 117 D Glucose 104 H Calcium 9.2 Magnesium 0.9 L D Total Bilirubin 1.0 AST 83 H D ALT 63 D Alkaline Phosphatase 98 Troponin I < 0.01 Total Protein 7.1 Albumin 3.7 Globulin 3.4 H Albumin/Globulin Ratio 1.1 Discharge Plan Follow up Plan Prescriptions/Medication Reconciliation: No Action pyridoxine (vitamin B6) [Vitamin B-6] 25 mg tablet 25 mg PO Q8H Patient Comments: TAKE 1 TABLET BY MOUTH EVERY 8 HOURS metoprolol succinate 25 mg tablet extended release 24 hr 25 mg PO DAILY potassium chloride 10 mEq tablet,ER particles/crystals 20 meq PO BID Patient Comments: TAKE 1 TABLET BY MOUTH TWICE DAILY potassium chloride [Klor-Con M20] 20 mEq tablet,ER particles/crystals 40 meq PO .twice Qty: 4 0RF Rx Instructions: 40mEq at 7pm & 11pm promethazine 12.5 mg tablet 12.5 mg PO TID Qty: 90 0RF omeprazole 20 mg Capsule,Delayed Release(Dr/Ec) 20 mg PO DAILY thiamine HCl (vitamin B1) 100 mg tablet 100 mg PO DAILY PNV no.95-ferrous fumarate-FA [] 28 mg iron- 800 mcg Tablet 1 tab PO DAILY ferrous sulfate [Iron (ferrous sulfate)] 325 mg (65 mg iron) Tablet 325 mg PO DAILY Qty: 30 3RF Patient Discharge Instructions Print Language: [place] Providers Primary Care Provider: Norma Friedman Admit Provider: Josefina Justice Attending Provider: Josefina Justice
--- NOTE | 2024-09-30 11:41 | EXP.HP ---
History of Present Illness *Admission Date: 09/30/24 *Reason for visit:: Pulmonary Episodes *History of present illness: Whitney Presley is a 34yo presenting today for chest pain, chest burning, pulmonary episodes , dizziness, syncopal episodes, and concerns for seizure activity at home. She is 31w1d gestation today. She had electrolyte replacement on Monday and and presents today with critical levels. She has had evaluation from nephrology, [facility], and [facility]. After discussing electrolyte symptoms pt complained of lower abdominal pain and cramping and increased vaginal discharge. [facility] Disclaimer: The information contained in this section may have been updated after the patient was seen, as this information can be updated by other users. Medical History Generalized abdominal pain Vaginal bleeding in Nausea vomiting and diarrhea Normal esophagogastroduodenoscopy (EGD) Vaginal discharge UTI (urinary tract infection) UTI (urinary tract infection) Subchorionic hematoma Patient left without being seen Vaginal spotting Bilateral ovarian cysts Vulvar lesion Lower abdominal pain Traumatic iritis Corneal abrasion Subconjunctival hemorrhage Bright red blood per rectum Hematemesis Obstipation Irregular bowel habits Dyspepsia Early satiety Bloating Back pain Abdominal pain Low back ache Acute viral syndrome Gastroenteritis Dehydration Hypocalcemia Missed GERD (gastroesophageal reflux disease) Grand multipara History of recurrent miscarriages History of miscarriage, currently History of anemia Urinary tract infection History of gastroesophageal reflux (GERD) Endometriosis Dysmenorrhea Menorrhagia History of miscarriage History of fainting History of heavy periods Surgical History History of tympanostomy tube placement History of section Hx of section Family History Other Family history of diabetes mellitus type II Family history of myocardial infarction Social History (Updated 09/30/24 @ 10:17 by Brigitte Bryant RN) Smoking Status: Never smoker alcohol intake: never substance use type: denies use current occupational status: unemployed Travel in the last 8 weeks?: None household members: spouse housing: house 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 Have you lived/traveled outside US in past 30 days?: No Contact w/someone who lives/traveled outside US past 30 days?: No Exposure to someone with infectious disease in past 14 days?: No Do you have a fever (greater than 100.4 F or 38 C)?: No Have you tested positive for COVID-19?: No Exposed to someone with COVID-19 in past 14 days?: No Do you have a sore throat?: No Do you have a cough?: No Do you have any weakness?: No Are you experiencing any nausea/vomitting?: No Do you have any diarrhea?: No Are you experiencing any unusual bleeding?: No Do you have any muscle aches/pain?: No Do you have any abdominal pain?: No Are you experiencing loss of taste or smell?: No Other Medical History Have you received the Flu Vaccine for this season: No Have you received the Pneumonia Vaccine: No Review of Systems Review of Systems Review of systems (narrative): Review of Systems Constitutional: Denies fever, chills, and sweats Eyes: Denies vision change/ pain Respiratory: Denies cough and shortness of breath Cardiovascular: endorses chest pain and lightheadedness Gastrointestinal: Admits abdominal pain. endorses nausea, vomiting. Genitourinary: Denies dysuria and incontinence Musculoskeletal: Denies shoulder pain and back pain Neurological: Denies change in speech or headaches. endorses lightheadness and dizziness Meds Home Medications and Allergies Home Medications ?Medication ?Instructions ?Recorded ?Confirmed ?Type omeprazole 20 mg capsule,delayed 20 mg PO DAILY 09/02/24 09/26/24 History release vit no.95-ferrous 1 tab PO DAILY 09/02/24 09/26/24 History fumarate 28 mg-folic acid 800 mcg tablet () thiamine HCl (vitamin B1) 100 mg 100 mg PO DAILY 09/02/24 09/26/24 History tablet ferrous sulfate 325 mg (65 mg 325 mg PO DAILY #30 tabs 09/12/24 09/26/24 Rx iron) tablet (Iron (ferrous sulfate)) pyridoxine (vitamin B6) 25 mg 25 mg PO Q8H 09/17/24 09/26/24 History tablet (Vitamin B-6) metoprolol succinate 25 mg 25 mg PO DAILY 09/25/24 09/26/24 History tablet,extended release 24 hr potassium chloride 10 mEq 20 meq PO BID 09/25/24 09/26/24 History tablet,extended release(part/cryst) potassium chloride 20 mEq 40 meq (2 x 20 mEq) PO .twice #4 09/26/24 Rx tablet,extended tabs release(part/cryst) (Klor-Con M) promethazine 12.5 mg tablet 12.5 mg PO TID #90 tabs 09/27/24 Rx New Prescriptions to Start Prescriptions: Allergies Allergy/AdvReac Type Severity Reaction Status Date / Time peanut Allergy Severe Hives Verified 09/26/24 12:00 Exam Data for Last 24 hours Vital signs and Labs for Last 24 Hours: Temp Pulse Resp BP Pulse Ox O2 Del Method 98.5 F 87 17 120/71 100 Room Air 09/30/24 10:48 09/30/24 10:48 09/30/24 10:48 09/30/24 10:48 09/30/24 10:48 09/30/24 10:48 Laboratory Results - last 24 hr 09/30/24 08:12: Sodium 132 L, Potassium 2.5 L*, Chloride 89 L, Carbon Dioxide 34 H, Anion Gap 11.5, BUN 7, Creatinine 0.70 D, Estimated Creat Clear 127, Estimated GFR 96, Est GFR ( Amer) 117 D, Glucose 104 H, Calcium 9.2, Magnesium 0.9 L D, Total Bilirubin 1.0, AST 83 H D, ALT 63 D, Alkaline Phosphatase 98, Total Protein 7.1, Albumin 3.7, Globulin 3.4 H, Albumin/Globulin Ratio 1.1 09/30/24 10:25: Troponin I < 0.01 I & O for Last 24 hours: Intake & Output 09/27/24 09/28/24 09/29/24 09/30/24 23:59 23:59 23:59 23:59 Intake Total 300 / 300 Balance 300 / 300 Weight 155 lb Constitutional Constitutional: no acute distress *Routine HEENT Exam Head: Present normocephalic Eye: Present EOMI and PERRL ENT: Present mucous membranes moist *Routine Neck Exam Neck: Present supple; Absent lymphadenopathy *Routine Respiratory Exam Respiratory: Present CTA bilaterally *Routine Cardiovascular Exam Cardiovascular: Present tachycardia *Routine Abdominal Exam Abdominal: Present soft and normoactive bowel sounds; Absent tenderness *Routine Rectal Exam Rectal:: deferred *Routine Genitalia Exam Genitalia:: deferred *Routine Extremities Exam Extremities: Absent cyanosis, clubbing or edema *Routine Skin Exam Skin: Present warm; Absent rash *Routine Neurological Exam Neurological: Present alert and oriented X3 Assessment and Plan *Assessment and plan (1) Loss of appetite: Status: Acute Category: Medical Code(s): R63.0 - Anorexia (2) Generalized abdominal pain: Status: Acute Category: Medical Code(s): R10.84 - Generalized abdominal pain (3) Chronic constipation: Status: Acute Category: Medical Code(s): K59.09 - Other constipation (4) Proteinuria affecting : Status: Acute Category: Medical Code(s): O12.10 - Gestational proteinuria, unspecified trimester (5) History of section: Status: Acute Category: Surgical Code(s): Z98.891 - History of uterine scar from previous surgery (6) History of cervical cone biopsy affecting care of mother in third trimester, antepartum: Status: Acute Category: Medical Code(s): O34.43 - Maternal care for other abnormalities of cervix, third trimester (7) Mitral regurgitation: Status: Acute Category: Medical Code(s): I34.0 - Nonrheumatic mitral (valve) insufficiency (8) IUGR (intrauterine growth restriction) in prior , : Status: Acute Category: Medical Code(s): O09.299 - Supervision of with other poor reproductive or obstetric history, unspecified trimester (9) PTSD (post-traumatic stress disorder): Status: Acute Category: Medical Code(s): F43.10 - Post-traumatic stress disorder, unspecified (10) Acute stress reaction: Status: Acute Category: Medical Code(s): F43.0 - Acute stress reaction (11) Sinus tachycardia: Status: Acute Category: Medical Code(s): R00.0 - Tachycardia, unspecified (12) Hypomagnesemia: Status: Acute Category: Medical Code(s): E83.42 - Hypomagnesemia (13) Vomiting affecting : Status: Acute Category: Medical Code(s): O21.9 - Vomiting of , unspecified (14) Nausea and vomiting: Status: Acute Qualifiers: Vomiting type: unspecified Qualified Code(s): R11.2 - Nausea with vomiting, unspecified Category: Medical Code(s): R11.2 - Nausea with vomiting, unspecified (15) GERD (gastroesophageal reflux disease): Status: Acute Qualifiers: Esophagitis presence: without esophagitis Qualified Code(s): K21.9 - Gastro-esophageal reflux disease without esophagitis Category: Medical Code(s): K21.9 - Gastro-esophageal reflux disease without esophagitis (16) Hypokalemia: Status: Acute Category: Medical Code(s): E87.6 - Hypokalemia Plan Complete electrolyte replacement, per protocol. We will check levels 10-12 hours after initiation [facility] and discussed pt care with certifed refrigeration operator MFM who stated they were on red diversion and that they could not accept transfer at this time. Spoke with Dr. Cruz who also recommended electrolyte optimization and follow up outpatient with [facility] secondary to cardiac symptoms troponin and EKG ordered Follow closely for labor
[2024-09-30] MEDS: ONDANSETRON 4MG/2ML VIAL 4 MG IV (12:14)
[2024-09-30] MEDS: POTASSIUM CHLORIDE 20MEQ TAB 40 MEQ PO ×2 (12:47→22:44)
[2024-09-30 14:35] LABS: Troponin I < 0.01 ng/ml (0.00-0.034)
--- NOTE | 2024-09-30 15:50 | PC.NURSE ---
1000 Patient transported via wheelchair/transferred to room 275 OB for further evaluation/treatment. Patient transported via Morena Menendez RN. BP 112/61, resp 18, O2 sat 98% room air, HR 120, temp 97.8. Patient does complain of some dizziness when up to bathroom. repair technician shows sinus tachycardia with occasional PVC noted. potassium 10mEq IV and magnesium 2 grams IV infusing as ordered/per protocol. Report given to BRIT Contreras prior to her transporting patient to OB.
[2024-09-30 17:31] LABS: Troponin I 0.02 ng/ml (0.00-0.034)
[2024-09-30 20:32] VITALS: BP 106/62; PULSE 95; RESP 17; TEMP 36.8; O2SAT 100
[2024-09-30 20:36] VITALS: PULSE 120
[2024-09-30 21:28] LABS: Chloride 90 mmol/L (98-107); Sodium 132 mmol/L (136-145)
[2024-09-30 21:31] LABS: Blood Urea Nitrogen 6 mg/dl (7-17); Calcium 9.0 mg/dl (8.4-10.2); Carbon Dioxide 32 mmol/L (22.0-30.0); Creatinine Clearance Estimated 127 mL/min (50-200); Creatinine,Serum 0.70 mg/dl (0.52-1.04); Estimated Glomerular Filt Rate 96 ml/min (>60); GFR (African American) 117 ML/MIN (>60); Glucose 111 mg/dl (74-100)
[2024-09-30 21:32] LABS: Magnesium 1.7 mg/dl (1.6-2.3); Potassium 2.6 mmoL/L (3.5-5.1)
[2024-09-30 21:33] LABS: Anion Gap 12.6 mEq/L (5-15)
[2024-09-30] MEDS: PROMETHAZINE HCL 25MG/ML 1ML VIAL 25 MG IV (21:59)
[2024-09-30] MEDS: SODIUM CHLORIDE 0.9% 25ML BAG 25 ML IV (21:59)
[2024-09-30] MEDS: CALCIUM CARBONATE 500MG CHEWTAB 1000 MG PO (22:52)
[2024-10-01] VITALS (7 sets, daily range): BP systolic 95–102; BP diastolic 57–64; PULSE 85–101; RESP 17–18; TEMP 36.7–36.9; O2SAT 98–99
[2024-10-01] MEDS: POTASSIUM CHLORIDE 20MEQ TAB 40 MEQ PO ×5 (01:37→21:40)
[2024-10-01 09:19] LABS: Hematocrit 30.4 % (37.0-47.0); Hemoglobin 9.9 g/dL (12.2-16.2); Immature Granulocytes % 0.2 %; Mean Corpuscular HGB Conc 32.6 g/dL (31.8-35.4); Mean Corpuscular Hemoglobin 29.0 pg (27.0-31.2); Mean Corpuscular Volume 89.1 fl (81-99); Nucleated Red Blood Cells % 0 %; Platelet Count 244 K/mm3 (142-424); Red Blood Count 3.41 M/mm3 (4.20-5.40); Red Cell Distribution Width-SD 46.5 fL; White Blood Count 8.2 K/mm3 (4.8-10.8)
[2024-10-01 09:35] LABS: Anion Gap 10.3 mEq/L (5-15); Blood Urea Nitrogen 7 mg/dl (7-17); Calcium 8.7 mg/dl (8.4-10.2); Carbon Dioxide 28 mmol/L (22.0-30.0); Chloride 97 mmol/L (98-107); Creatinine Clearance Estimated 127 mL/min (50-200); Creatinine,Serum 0.70 mg/dl (0.52-1.04); Estimated Glomerular Filt Rate 96 ml/min (>60); GFR (African American) 117 ML/MIN (>60); Glucose 74 mg/dl (74-100); Magnesium 1.3 mg/dl (1.6-2.3); Potassium 4.3 mmoL/L (3.5-5.1); Sodium 131 mmol/L (136-145)
[2024-10-01] MEDS: ONDANSETRON 4MG/2ML VIAL 4 MG IV (10:13)
[2024-10-01] MEDS: MAGNESIUM SULFATE IN WATER 2 GM/50 ML PIGGYBACK IV ×3 (10:55→12:37)
--- NOTE | 2024-10-01 13:55 | EXP.ACUTE.PN ---
Subjective *Date: 10/01/24 *Time: 13:57 Interval history: Resting comfortably in bed. Baby is active. No new complaints or concerns. Medical Exam Vital signs and Labs for Last 24 Hours: Vital Signs Temp Pulse Pulse Resp BP Pulse Ox O2 Del Method 10/01/24 08:13 100 H 10/01/24 07:05 98.1 F 88 18 102/61 L 98 Room Air 10/01/24 04:58 98.0 F 98 H 17 98/64 L 99 Room Air 10/01/24 04:00 85 10/01/24 00:29 85 09/30/24 20:36 120 H 09/30/24 20:32 98.2 F 95 H 17 106/62 L 100 Room Air Intake and Output 09/30/24 10/01/24 10/01/24 23:59 07:59 15:59 Intake Total 50 / 938.333 135.000 / 135.000 Balance 50 / 938.333 135.000 / 135.000 Intake: Intake, Total IV Amount 50 / 938.333 135.000 / 135.000 Magnesium Sulfate in Water 2 gm 50 / 138.333 In 50 ml @ 25 mls/hr IV Q2H RENE Rx#:[id number] Magnesium Sulfate in Water 2 gm 135.000 / 135.000 In 50 ml @ 50 mls/hr IV Q1H RENE Rx#:[id number] Laboratory Results - last 24 hr 09/30/24 13:40: Troponin I < 0.01 09/30/24 16:38: Troponin I 0.02 09/30/24 21:06: Sodium 132 L, Potassium 2.6 L*, Chloride 90 L, Carbon Dioxide 32 H, Anion Gap 12.6, BUN 6 L, Creatinine 0.70, Estimated Creat Clear 127, Estimated GFR 96, Est GFR ( Amer) 117, Glucose 111 H, Calcium 9.0, Magnesium 1.7 D 10/01/24 09:13: WBC 8.2, RBC 3.41 L, Hgb 9.9 L, Hct 30.4 L, MCV 89.1, MCH 29.0, MCHC 32.6, RDW 14.5, Plt Count 244, MPV 11.7 H, Neut % (Auto) 59.7, Lymph % (Auto) 27.7, [place] % (Auto) 10.9 H, Eos % (Auto) 1.1, Baso % (Auto) 0.4, Neut # (Auto) 4.9, Lymph # (Auto) 2.3, [place] # (Auto) 0.9, Eos # (Auto) 0.1, Baso # (Auto) 0.0, Sodium 131 L, Potassium 4.3 D, Chloride 97 L, Carbon Dioxide 28, Anion Gap 10.3, BUN 7, Creatinine 0.70, Estimated Creat Clear 127, Estimated GFR 96, Est GFR ( Amer) 117, Glucose 74 D, Calcium 8.7, Magnesium 1.3 L D I & O for Labs for Last 24 Hours: Intake & Output 09/28/24 09/29/24 09/30/24 10/01/24 23:59 23:59 23:59 23:59 Intake Total 938.333 / 938.333 135.000 / 135.000 Balance 938.333 / 938.333 135.000 / 135.000 Weight 155 lb Head: Present atraumatic and normocephalic ENT: Present normal exam Neck: Present full ROM Respiratory: Present CTA bilaterally and normal respiratory effort Cardiac: Present Reg Rate and Rhythm GI: Present soft (Gravid); Absent tenderness Rectal (female): Present deferred (female): Present deferred Extremities: Present full ROM; Absent edema Neuro: Present alert, awake and moves all extremities Assessment and Plan *Assessment and plan (1) Hypokalemia: Status: Acute Category: Medical Code(s): E87.6 - Hypokalemia (2) Hypomagnesemia: Status: Acute Category: Medical Code(s): E83.42 - Hypomagnesemia (3) Vomiting affecting : Status: Acute Category: Medical Code(s): O21.9 - Vomiting of , unspecified (4) Loss of appetite: Status: Acute Category: Medical Code(s): R63.0 - Anorexia (5) Chronic constipation: Status: Acute Category: Medical Code(s): K59.09 - Other constipation (6) PTSD (post-traumatic stress disorder): Status: Acute Category: Medical Code(s): F43.10 - Post-traumatic stress disorder, unspecified Plan AM potassium 4.3 after receiving Klor-con 40 mEq PO q 3 hours overnight. Will continue Klor-con 40 mEq PO BID AM Mag 1.3 (1.7 yesterday) - mag replacement per protocol - discussed oral magnesium replacement Consult hospitalist. Appreciate input and care. Renin lab was ordered by hospitalist 09/20/24 and was 23.46, aldosterone also elevated 09/20/24 at 90.7. Discussed looking for a dose of oral potassium to help patient maintain with infusion as needed NST q shift Pepcid PRN Zofran and promethazine PRN Regular diet AM CBC and CMP
--- NOTE | 2024-10-01 14:30 | P.PN_ITS ---
Subjective *Date: 10/01/24 *Time: 14:30 Interval history: Patient states she is feeling well, no complaints at this time. Tolerating p.o. intake without issues. Denies abdominal pain, nausea, vomiting, diarrhea. Medical Exam Vital signs and Labs for Last 24 Hours: Vital Signs Temp Pulse Pulse Resp BP Pulse Ox O2 Del Method 10/01/24 08:13 100 H 10/01/24 07:05 98.1 F 88 18 102/61 L 98 Room Air 10/01/24 04:58 98.0 F 98 H 17 98/64 L 99 Room Air 10/01/24 04:00 85 10/01/24 00:29 85 09/30/24 20:36 120 H 09/30/24 20:32 98.2 F 95 H 17 106/62 L 100 Room Air Intake and Output 09/30/24 10/01/24 10/01/24 23:59 07:59 15:59 Intake Total 50 / 938.333 135.000 / 135.000 Balance 50 / 938.333 135.000 / 135.000 Intake: Intake, Total IV Amount 50 / 938.333 135.000 / 135.000 Magnesium Sulfate in Water 2 gm 50 / 138.333 In 50 ml @ 25 mls/hr IV Q2H RENE Rx#:[id number] Magnesium Sulfate in Water 2 gm 135.000 / 135.000 In 50 ml @ 50 mls/hr IV Q1H RENE Rx#:[id number] Laboratory Results - last 24 hr 09/30/24 13:40: Troponin I < 0.01 09/30/24 16:38: Troponin I 0.02 09/30/24 21:06: Sodium 132 L, Potassium 2.6 L*, Chloride 90 L, Carbon Dioxide 32 H, Anion Gap 12.6, BUN 6 L, Creatinine 0.70, Estimated Creat Clear 127, Estimated GFR 96, Est GFR ( Amer) 117, Glucose 111 H, Calcium 9.0, Magnesium 1.7 D 10/01/24 09:13: WBC 8.2, RBC 3.41 L, Hgb 9.9 L, Hct 30.4 L, MCV 89.1, MCH 29.0, MCHC 32.6, RDW 14.5, Plt Count 244, MPV 11.7 H, Neut % (Auto) 59.7, Lymph % (Auto) 27.7, [place] % (Auto) 10.9 H, Eos % (Auto) 1.1, Baso % (Auto) 0.4, Neut # (Auto) 4.9, Lymph # (Auto) 2.3, [place] # (Auto) 0.9, Eos # (Auto) 0.1, Baso # (Auto) 0.0, Sodium 131 L, Potassium 4.3 D, Chloride 97 L, Carbon Dioxide 28, Anion Gap 10.3, BUN 7, Creatinine 0.70, Estimated Creat Clear 127, Estimated GFR 96, Est GFR ( Amer) 117, Glucose 74 D, Calcium 8.7, Magnesium 1.3 L D I & O for Labs for Last 24 Hours: Intake & Output 09/28/24 09/29/24 09/30/24 10/01/24 23:59 23:59 23:59 23:59 Intake Total 938.333 / 938.333 135.000 / 135.000 Balance 938.333 / 938.333 135.000 / 135.000 Weight 70.307 kg Assessment and Plan *Assessment and plan (1) Hypokalemia: Status: Acute Category: Medical Code(s): E87.6 - Hypokalemia (2) Hypomagnesemia: Status: Acute Category: Medical Code(s): E83.42 - Hypomagnesemia (3) : Status: Acute Qualifiers: Weeks of gestation: 28 weeks Qualified Code(s): Z3A.28 - 28 weeks gestation of Category: Medical Code(s): Z34.90 - Encounter for supervision of normal , unspecified, unspecified trimester (4) Secondary aldosteronism: Status: Acute Category: Medical Code(s): E26.1 - Secondary hyperaldosteronism Plan Ms. Presley is a 34-year-old female, G9, P5 admitted due to hypokalemia and hypomagnesia. She currently denies nausea or vomiting at this time. Denies abdominal pain. She is tolerating p.o. diet without problems. Lab work this morning remarkable for potassium of 4.3 after repletion, no leukocytosis WBC 8.2, mild anemia hemoglobin 9.9, kidney function within normal limits, creatinine 0.7. Patient had echo on 09/20/2024 showing LVEF of 55%, normal BiV function. Magnesium 1.3, replating today per protocol. She has been seeing outpatient nephrology at who recommends possible kidney MRI for further evaluation of adrenal insufficiency. Transvaginal ultrasound shows shortened cervix of 2.3-defer to OB. #Hypokalemia, resolved #Hypomagnesemia #Secondary aldosteronism ? Patient has been getting regular outpatient infusions of magnesium and potassium. She states this has been a chronic issue throughout this and previous pregnancies. She states that this is not been an issue for her previously when she is not . 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 ? During patient's last admission renin activity and aldosterone were checked (send out labs). Renin activity 23.460 and aldosterone 90.7-indicative of secondary aldosteronism. Patient currently sees nephrology with , patient needs to continue to follow with them for further workup. ? Would recommend tapering off of omeprazole 20 mg daily, as this can contribute to hypomagnesemia and hypokalemia. Recommend tapering medicine every other day x 1 week. Consider switching to famotidine or antacids as needed. ? Continue to monitor CBC, CMP, magnesium levels during admission. # ? Patient is 31w2d gestation. Following with [facility] and our ENVIRONMENTAL CHANGE ANALYST team. Full code Regular diet Ambulate as tolerated #Will continue to follow.
[2024-10-01] MEDS: SODIUM CHLORIDE 0.9% 25ML BAG 25 ML IV (21:17)
[2024-10-01] MEDS: PROMETHAZINE HCL 25MG/ML 1ML VIAL 12.5 MG IV (21:18)
[2024-10-02 05:53] LABS: Hematocrit 27.7 % (37.0-47.0); Hemoglobin 9.1 g/dL (12.2-16.2); Immature Granulocytes % 0.4 %; Mean Corpuscular HGB Conc 32.9 g/dL (31.8-35.4); Mean Corpuscular Hemoglobin 29.7 pg (27.0-31.2); Mean Corpuscular Volume 90.5 fl (81-99); Nucleated Red Blood Cells % 0 %; Platelet Count 202 K/mm3 (142-424); Red Blood Count 3.06 M/mm3 (4.20-5.40); Red Cell Distribution Width-SD 47.8 fL; White Blood Count 7.4 K/mm3 (4.8-10.8)
[2024-10-02 05:58] LABS: Chloride 103 mmol/L (98-107)
[2024-10-02 05:59] LABS: Albumin Level 3.0 g/dl (3.5-5.0); Potassium 3.8 mmoL/L (3.5-5.1); Sodium 134 mmol/L (136-145)
[2024-10-02 06:01] LABS: Blood Urea Nitrogen 7 mg/dl (7-17); Creatinine Clearance Estimated 127 mL/min (50-200); Creatinine,Serum 0.70 mg/dl (0.52-1.04); Estimated Glomerular Filt Rate 96 ml/min (>60); GFR (African American) 117 ML/MIN (>60)
[2024-10-02 06:02] LABS: Alanine Aminotransferase 76 U/L (12-78); Albumin/Globulin Ratio 1.0 (1.1-1.8); Alkaline Phosphatase 79 U/L (38-126); Anion Gap 8.8 mEq/L (5-15); Aspartate Amino Transferase 111 U/L (14-36); Bilirubin,Total 1.2 mg/dl (0.2-1.3); Calcium 8.6 mg/dl (8.4-10.2); Carbon Dioxide 26 mmol/L (22.0-30.0); Globulin 3.0 g/dL (1.3-3.2); Glucose 75 mg/dl (74-100); Total Protein,Serum 6.0 g/dl (6.3-8.2)
[2024-10-02 07:07] LABS: Magnesium 1.3 mg/dl (1.6-2.3)
[2024-10-02 07:55] VITALS: BP 100/66; PULSE 107; RESP 18; TEMP 36.9; O2SAT 100
[2024-10-02] MEDS: MAGNESIUM SULFATE IN WATER 2 GM/50 ML PIGGYBACK IV ×2 (08:48→09:33)
[2024-10-02] MEDS: ONDANSETRON 4MG/2ML VIAL 4 MG IV (08:49)
[2024-10-02] MEDS: POTASSIUM CHLORIDE 20MEQ TAB 40 MEQ PO ×3 (09:33→21:21)
[2024-10-02 11:33] VITALS: BP 109/65; PULSE 96; RESP 17; O2SAT 97
--- NOTE | 2024-10-02 12:19 | P.PN_ITS ---
Subjective *Date: 10/02/24 *Time: 12:19 Interval history: Whitney is laying in bed complaining of dizziness, lightheadedness, MITCHELL, heart racing, and nausea. She is concerned about a possible adrenal issue and concerned about her liver function. Exam Data for Last 24 hours Vital signs and Labs for Last 24 Hours: Temp Pulse Resp BP Pulse Ox O2 Del Method 98.4 F 96 H 17 109/65 L 97 Room Air 10/02/24 07:55 10/02/24 11:33 10/02/24 11:33 10/02/24 11:33 10/02/24 11:33 10/02/24 11:33 Laboratory Results - last 24 hr 10/02/24 05:30: WBC 7.4, RBC 3.06 L, Hgb 9.1 L, Hct 27.7 L, MCV 90.5, MCH 29.7, MCHC 32.9, RDW 14.6, Plt Count 202, MPV 12.0 H, Neut % (Auto) 51.6, Lymph % (Auto) 35.4, [place] % (Auto) 10.3 H, Eos % (Auto) 1.9, Baso % (Auto) 0.4, Neut # (Auto) 3.8, Lymph # (Auto) 2.6, [place] # (Auto) 0.8, Eos # (Auto) 0.1, Baso # (Auto) 0.0, Sodium 134 L, Potassium 3.8, Chloride 103, Carbon Dioxide 26, Anion Gap 8.8, BUN 7, Creatinine 0.70, Estimated Creat Clear 127, Estimated GFR 96, Est GFR ( Amer) 117, Glucose 75, Calcium 8.6, Magnesium 1.3 L, Total Bilirubin 1.2, AST 111 H D, ALT 76, Alkaline Phosphatase 79, Total Protein 6.0 L , Albumin 3.0 L, Globulin 3.0, Albumin/Globulin Ratio 1.0 L I & O for Last 24 hours: Intake & Output 09/29/24 09/30/24 10/01/24 10/02/24 23:59 23:59 23:59 23:59 Intake Total 938.333 / 938.333 135.000 / 135.000 87.5 / 87.5 Balance 938.333 / 938.333 135.000 / 135.000 87.5 / 87.5 Weight 155 lb Constitutional Constitutional: no acute distress *Routine HEENT Exam Head: Present normocephalic Eye: Present EOMI and PERRL ENT: Present mucous membranes moist *Routine Neck Exam Neck: Present supple; Absent lymphadenopathy *Routine Respiratory Exam Respiratory: Present CTA bilaterally *Routine Cardiovascular Exam Cardiovascular: Present tachycardia *Routine Abdominal Exam Abdominal: Present soft and normoactive bowel sounds; Absent tenderness *Routine Extremities Exam Extremities: Absent cyanosis, clubbing or edema *Routine Skin Exam Skin: Present warm; Absent rash *Routine Neurological Exam Neurological: Present alert and oriented X3 Assessment and Plan *Assessment and plan (1) Hypokalemia: Status: Acute Category: Medical Code(s): E87.6 - Hypokalemia (2) Hypomagnesemia: Status: Acute Category: Medical Code(s): E83.42 - Hypomagnesemia (3) : Status: Acute Qualifiers: Weeks of gestation: 28 weeks Qualified Code(s): Z3A.28 - 28 weeks gestation of Category: Medical Code(s): Z34.90 - Encounter for supervision of normal , unspecified, unspecified trimester (4) Secondary aldosteronism: Status: Acute Category: Medical Code(s): E26.1 - Secondary hyperaldosteronism (5) Vomiting affecting : Status: Acute Category: Medical Code(s): O21.9 - Vomiting of , unspecified (6) Loss of appetite: Status: Acute Category: Medical Code(s): R63.0 - Anorexia (7) Chronic constipation: Status: Acute Category: Medical Code(s): K59.09 - Other constipation (8) PTSD (post-traumatic stress disorder): Status: Acute Category: Medical Code(s): F43.10 - Post-traumatic stress disorder, unspecified (9) Proteinuria affecting : Status: Acute Category: Medical Code(s): O12.10 - Gestational proteinuria, unspecified trimester (10) History of section: Status: Acute Category: Surgical Code(s): Z98.891 - History of uterine scar from previous surgery (11) History of cervical cone biopsy affecting care of mother in third trimester, antepartum: Status: Acute Category: Medical Code(s): O34.43 - Maternal care for other abnormalities of cervix, third trimester (12) Mitral regurgitation: Status: Acute Category: Medical Code(s): I34.0 - Nonrheumatic mitral (valve) insufficiency (13) IUGR (intrauterine growth restriction) in prior , : Status: Acute Category: Medical Code(s): O09.299 - Supervision of with other poor reproductive or obstetric history, unspecified trimester (14) Acute stress reaction: Status: Acute Category: Medical Code(s): F43.0 - Acute stress reaction (15) Sinus tachycardia: Status: Acute Category: Medical Code(s): R00.0 - Tachycardia, unspecified (16) Nausea and vomiting: Status: Acute Qualifiers: Vomiting type: unspecified Qualified Code(s): R11.2 - Nausea with vomiting, unspecified Category: Medical Code(s): R11.2 - Nausea with vomiting, unspecified (17) GERD (gastroesophageal reflux disease): Status: Acute Qualifiers: Esophagitis presence: without esophagitis Qualified Code(s): K21.9 - Gastro-esophageal reflux disease without esophagitis Category: Medical Code(s): K21.9 - Gastro-esophageal reflux disease without esophagitis Plan Continue with electrolyte replacement. Seems like she is tolerating and maintaining her potassium with p.o. replacement we will increase potassium to 40 mEq 3 times daily She is given 2 g of mag to replace her magnesium per protocol Given patient concern and slight increase in her LFTs and previously being eval uated by GI we have asked further help on this patient while she is inpatient Appreciate continued recommendations from medicine specifically regarding her abnormal renin and aldosterone testing. Would appreciate recommendations on follow-up imaging and if imaging of the adrenal glands with MRI is indicated Work on follow up appt with [facility]
--- NOTE | 2024-10-02 12:32 | EXP.GE.CONS ---
History of Present Illness *Admission Date: 09/30/24 *History of present illness: Whitney Presley is a 34yo presenting today for chest pain, chest burning, pulmonary episodes , dizziness, syncopal episodes, and concerns for seizure activity at home. She is 31w1d gestation today. She had electrolyte replacement on Monday and and presents today with critical levels. She has had evaluation from nephrology, [facility], and [facility]. After discussing electrolyte symptoms pt complained of lower abdominal pain and cramping and increased vaginal discharge. admission H&P This is a 34-year-old female who was seen in our GI office last week. The patient has a history of bowel dysfunction and acid reflux. She was seen by Dr. Baer at the end of last year and was scheduled for panendoscopy. Before she could complete that, she found out she was . During , she reports she has had worsening constipation nausea and vomiting. The patient reports no bowel movement for 5 weeks. She currently takes 2 capfuls of MiraLAX plus a Citrucel tablet daily. Over the past 5 or 6 weeks she has tried glycerin suppositories for a week, saline enemas for 4 days, 2 days of stimulant laxatives, 2 weeks of milk of magnesia that she has tried multiple times. She is taking a stool softener daily. She is taking 2 capfuls of MiraLAX and 1 tablet of Citrucel every day. She tried a mag citrate bottle 2 weeks ago without any production. She does take Pepcid and omeprazole every day. She is eating 6 Tums per day because of the severe acid reflux. She reports dysphagia and globus sensation. Some of the symptoms are issues from prior to her but seem to have just gotten progressively worse. She previously reported a diagnosis of gastroparesis and a delayed gastric emptying study previously. The patient initially reported loss of appetite and weight loss. She reports electrolyte imbalances and inability to keep food or fluids down. Last week the patient reported that because of the severe constipation and the nausea and vomiting and the loss of appetite she has had weight loss and subsequent intrauterine growth restriction. She has been giving mixed information and different stories about her symptoms. Today the patient reports that she has had no loss of appetite just the vomiting was keeping her from gaining weight. Since inpatient admission, the patient's potassium has normalized with oral replacement. She is sitting up in bed eating a large lunch. Per nursing the patient has not had a bowel movement since admission but she has been eating large meals persistently. She has been drinking lots of fluid. The patient denies nausea, vomiting, loss of appetite, abdominal pain currently. [facility] Disclaimer: The information contained in this section may have been updated after the patient was seen, as this information can be updated by other users. Medical History (Updated 10/01/24 @ 15:51 by Anila Mujica APRN) Generalized abdominal pain Vaginal bleeding in Nausea vomiting and diarrhea Normal esophagogastroduodenoscopy (EGD) Vaginal discharge UTI (urinary tract infection) UTI (urinary tract infection) Subchorionic hematoma Patient left without being seen Vaginal spotting Bilateral ovarian cysts Vulvar lesion Lower abdominal pain Traumatic iritis Corneal abrasion Subconjunctival hemorrhage Bright red blood per rectum Hematemesis Obstipation Irregular bowel habits Dyspepsia Early satiety Bloating Back pain Abdominal pain Low back ache Acute viral syndrome Gastroenteritis Dehydration Hypocalcemia Missed GERD (gastroesophageal reflux disease) Grand multipara History of recurrent miscarriages History of miscarriage, currently History of anemia Urinary tract infection History of gastroesophageal reflux (GERD) Endometriosis Dysmenorrhea Menorrhagia History of miscarriage History of fainting History of heavy periods Surgical History History of tympanostomy tube placement History of section Hx of section Family History Other Family history of diabetes mellitus type II Family history of myocardial infarction Social History (Updated 09/30/24 @ 10:17 by Brigitte Bryant RN) Smoking Status: Never smoker alcohol intake: never substance use type: denies use current occupational status: unemployed Travel in the last 8 weeks?: None household members: spouse housing: house current occupation: [employer] Review of Systems Review of Systems Review of systems:: pertinent systems reviewed and negative unless documented below Constitutional Constitutional: Reports system reviewed and no additional complaints, except as documented, Reports fatigue, Reports weakness and Reports weight loss Eyes Eyes: Reports system reviewed and no additional complaints, except as documented ENT Ears, Nose, Mouth, and Throat: Reports system reviewed and no additional complaints, except as documented and Reports dizziness *Cardiovascular Cardiovascular: Reports system reviewed and no additional complaints, except as documented *Respiratory Respiratory: Reports system reviewed and no additional complaints, except as documented *Gastrointestinal Gastrointestinal: Reports constipation, Reports nausea and Reports vomiting Comments: Denies abdominal pain current vomiting but reports ongoing nausea as she is eating lunch *Genitourinary Genitourinary: Reports system reviewed and no additional complaints, except as documented *Musculoskeletal Musculoskeletal: Reports muscle weakness *Neurologic Neurologic: Reports system reviewed and no additional complaints, except as documented, Reports dizziness and Reports weakness Psychiatric Psychiatric: Reports system reviewed and no additional complaints, except as documented Endocrine Endocrine: Reports fatigue Meds Home Medications and Allergies Home Medications ?Medication ?Instructions ?Recorded ?Confirmed ?Type omeprazole 20 mg capsule,delayed 20 mg PO DAILY 09/02/24 09/30/24 History release vit no.95-ferrous 1 tab PO DAILY 09/02/24 09/30/24 History fumarate 28 mg-folic acid 800 mcg tablet () thiamine HCl (vitamin B1) 100 mg 100 mg PO DAILY 09/02/24 09/30/24 History tablet ferrous sulfate 325 mg (65 mg 325 mg PO DAILY #30 tabs 09/12/24 09/30/24 Rx iron) tablet (Iron (ferrous sulfate)) metoprolol succinate 25 mg 12.5 mg PO DAILY 09/25/24 09/30/24 History tablet,extended release 24 hr potassium chloride 10 mEq 20 meq PO BID 09/25/24 09/30/24 History tablet,extended release(part/cryst) magnesium glycinate 100 mg (as 420 mg PO DAILY 09/30/24 09/30/24 History glycinate) tablet promethazine 12.5 mg tablet 12.5 mg PO TID PRN Nausea And 09/30/24 09/30/24 History Vomiting New Prescriptions to Start Prescriptions: Allergies Allergy/AdvReac Type Severity Reaction Status Date / Time peanut Allergy Severe Hives Verified 09/26/24 12:00 Exam (Inpt) Vital signs and Labs for Last 24 Hours: Temp Pulse Resp BP Pulse Ox O2 Del Method 98.4 F 96 H 17 109/65 L 97 Room Air 10/02/24 07:55 10/02/24 11:33 10/02/24 11:33 10/02/24 11:33 10/02/24 11:33 10/02/24 11:33 Laboratory Results - last 24 hr 10/02/24 05:30: WBC 7.4, RBC 3.06 L, Hgb 9.1 L, Hct 27.7 L, MCV 90.5, MCH 29.7, MCHC 32.9, RDW 14.6, Plt Count 202, MPV 12.0 H, Neut % (Auto) 51.6, Lymph % (Auto) 35.4, [place] % (Auto) 10.3 H, Eos % (Auto) 1.9, Baso % (Auto) 0.4, Neut # (Auto) 3.8, Lymph # (Auto) 2.6, [place] # (Auto) 0.8, Eos # (Auto) 0.1, Baso # (Auto) 0.0, Sodium 134 L, Potassium 3.8, Chloride 103, Carbon Dioxide 26, Anion Gap 8.8, BUN 7, Creatinine 0.70, Estimated Creat Clear 127, Estimated GFR 96, Est GFR ( Amer) 117, Glucose 75, Calcium 8.6, Magnesium 1.3 L, Total Bilirubin 1.2, AST 111 H D, ALT 76, Alkaline Phosphatase 79, Total Protein 6.0 L, Albumin 3.0 L, Globulin 3.0, Albumin/Globulin Ratio 1.0 L I & O for Labs for Last 24 Hours: Intake & Output 08/25/25 08/26/25 08/27/25 08/28/25 11:59 11:59 11:59 11:59 Intake Total 300 682.500 178.333 Balance 300 682.500 178.333 Weight 70.307 kg Constitutional: no acute distress Comment:: gravid Head: Present normocephalic and atraumatic Neck: Present normal inspection Respiratory: Present CTA bilaterally Cardiac: Present Reg Rate and Rhythm GI: Present soft and normal bowel sounds; Absent tenderness Comments:: gravid Extremities: Present normal inspection and full ROM Skin: Present intact Additional Findings:: Patient giving conflicting answers to the same question throughout the conversation. Rapidly jumping from topic to topic but is quickly redirectable. Patient somewhat hyperfocused on her concerns being dismissed with multiple specialties of both and [facility]. She is hyperfocused on multiple specialties at and [facility] refusing to see her in office. When confronted with conflicting information, she changes topic rapidly. But again, quickly redirectable. Results Labs 10/02/24 05:30 10/02/24 05:30 Labs: Laboratory Results - last 24 hr 10/02/24 05:30: WBC 7.4, RBC 3.06 L, Hgb 9.1 L, Hct 27.7 L, MCV 90.5, MCH 29.7, MCHC 32.9, RDW 14.6, Plt Count 202, MPV 12.0 H, Neut % (Auto) 51.6, Lymph % (Auto) 35.4, [place] % (Auto) 10.3 H, Eos % (Auto) 1.9, Baso % (Auto) 0.4, Neut # (Auto) 3.8, Lymph # (Auto) 2.6, [place] # (Auto) 0.8, Eos # (Auto) 0.1, Baso # (Auto) 0.0, Sodium 134 L, Potassium 3.8, Chloride 103, Carbon Dioxide 26, Anion Gap 8.8, BUN 7, Creatinine 0.70, Estimated Creat Clear 127, Estimated GFR 96, Est GFR ( Amer) 117, Glucose 75, Calcium 8.6, Magnesium 1.3 L, Total Bilirubin 1.2, AST 111 H D, ALT 76, Alkaline Phosphatase 79, Total Protein 6.0 L, Albumin 3.0 L, Globulin 3.0, Albumin/Globulin Ratio 1.0 L Assessment and Plan *Assessment and plan (1) Loss of appetite: Status: Acute Category: Medical Code(s): R63.0 - Anorexia (2) Generalized abdominal pain: Status: Acute Category: Medical Code(s): R10.84 - Generalized abdominal pain (3) Chronic constipation: Status: Acute Category: Medical Code(s): K59.09 - Other constipation (4) Nausea and vomiting: Status: Acute Qualifiers: Vomiting type: unspecified Qualified Code(s): R11.2 - Nausea with vomiting, unspecified Category: Medical Code(s): R11.2 - Nausea with vomiting, unspecified (5) GERD (gastroesophageal reflux disease): Status: Acute Qualifiers: Esophagitis presence: without esophagitis Qualified Code(s): K21.9 - Gastro-esophageal reflux disease without esophagitis Category: Medical Code(s): K21.9 - Gastro-esophageal reflux disease without esophagitis Plan 1. Chronic constipation/nausea vomiting/GERD/generalized abdominal pain/loss of appetite Patient has a long history of variable bowel movements, poor gastric emptying, and acid reflux, dyspepsia symptoms. Symptoms have worsened throughout her and she denies having a bowel movement at all for the past 5 weeks. She does give a lot of mixed information and so I am not 100% sure of accuracy of responses but per nursing, she has not had a bowel movement since being in the hospital. She has not been on any laxatives since admission. She has had resolution of her nausea vomiting abdominal pain and loss of appetite today. Per nursing, the patient has been eating voraciously since admission. She is eating a large lunch as I am speaking to her in the room. She had a single episode of vomiting yesterday and none today. Previously patient reported loss of appetite. Today she reports that she never lost her appetite just had vomiting. She has tried and failed glycerin suppositories, saline enemas, milk of magnesia, mag citrate, stool softeners and at home reportedly was taking 2 capfuls of MiraLAX and Citrucel tablet daily. She reports severe acid reflux and is on Pepcid and omeprazole and 6 Tums a day. She has dysphagia and globus sensation. Some of these are symptoms that she had before that are just worse. Some of her symptoms will not improve until we get her bowels moving. I recommend we put her back on her double dose of MiraLAX and change her fiber tablets to powdered fiber Citrucel. I recommend she go home on that combination. I recommend twice a day dosing. She is scheduled for abdominal ultrasound tomorrow. She still has good bowel sounds. I recommend we go ahead and schedule her for EGD and colonoscopy after delivery. We can try prescription laxatives after delivery if needed. I agree with weaning off of the omeprazole to improve her nutritional absorption. May utilize Pepcid twice daily if needed.
[2024-10-02] MEDS: PSYLLIUM UD PACKET 1 EACH PO (13:26)
[2024-10-02] MEDS: POLYETHYLENE GLYCOL 3350 17 GM PACKET 34 GM PO ×2 (13:26→21:22)
[2024-10-02 16:50] VITALS: BP 107/63; PULSE 110; RESP 17; TEMP 36.7; O2SAT 98
[2024-10-02 19:42] VITALS: BP 87/62; PULSE 100; RESP 18; TEMP 36.7; O2SAT 99
[2024-10-02] MEDS: PROMETHAZINE HCL 25MG/ML 1ML VIAL 12.5 MG IV (22:13)
--- NOTE | 2024-10-02 22:31 | P.PN_ITS ---
Subjective *Date: 10/02/24 *Time: 22:35 Interval history: Patient in bed without acute distress. Denies decreased p.o. intake, nausea/vomiting, diarrhea, urinary frequency to explain electrolyte abnormalities. Exam Data for Last 24 hours Vital signs and Labs for Last 24 Hours: Temp Pulse Resp BP Pulse Ox O2 Del Method 98.0 F 100 H 18 87/62 L 99 Room Air 10/02/24 19:42 10/02/24 19:42 10/02/24 19:42 10/02/24 19:42 10/02/24 19:42 10/02/24 19:42 Laboratory Results - last 24 hr 10/01/24 09:13: ACTH 10.9 10/02/24 05:30: WBC 7.4, RBC 3.06 L, Hgb 9.1 L, Hct 27.7 L, MCV 90.5, MCH 29.7, MCHC 32.9, RDW 14.6, Plt Count 202, MPV 12.0 H, Neut % (Auto) 51.6, Lymph % (Auto) 35.4, [place] % (Auto) 10.3 H, Eos % (Auto) 1.9, Baso % (Auto) 0.4, Neut # (Auto) 3.8, Lymph # (Auto) 2.6, [place] # (Auto) 0.8, Eos # (Auto) 0.1, Baso # (Auto) 0.0, Sodium 134 L, Potassium 3.8, Chloride 103, Carbon Dioxide 26, Anion Gap 8.8, BUN 7, Creatinine 0.70, Estimated Creat Clear 127, Estimated GFR 96, Est GFR ( Amer) 117, Glucose 75, Calcium 8.6, Magnesium 1.3 L, Total Bilirubin 1.2, AST 111 H D, ALT 76, Alkaline Phosphatase 79, Total Protein 6.0 L , Albumin 3.0 L, Globulin 3.0, Albumin/Globulin Ratio 1.0 L I & O for Last 24 hours: Intake & Output 09/29/24 09/30/24 10/01/24 10/02/24 23:59 23:59 23:59 23:59 Intake Total 938.333 / 938.333 135.000 / 135.000 87.5 / 87.5 Output Total 650 / 650 Balance 938.333 / 938.333 135.000 / 135.000 -562.5 / -562.5 Weight 70.307 kg Constitutional Constitutional: no acute distress *Routine HEENT Exam Head: Present normocephalic Eye: Present EOMI and PERRL ENT: Present mucous membranes moist *Routine Neck Exam Neck: Present supple; Absent lymphadenopathy *Routine Respiratory Exam Respiratory: Present CTA bilaterally *Routine Cardiovascular Exam Cardiovascular: Present tachycardia *Routine Abdominal Exam Abdominal: Present soft and normoactive bowel sounds; Absent tenderness *Routine Extremities Exam Extremities: Absent cyanosis, clubbing or edema *Routine Skin Exam Skin: Present warm; Absent rash *Routine Neurological Exam Neurological: Present alert and oriented X3 Assessment and Plan *Assessment and plan (1) Hypokalemia: Status: Acute Category: Medical Code(s): E87.6 - Hypokalemia (2) Hypomagnesemia: Status: Acute Category: Medical Code(s): E83.42 - Hypomagnesemia (3) : Status: Acute Qualifiers: Weeks of gestation: 28 weeks Qualified Code(s): Z3A.28 - 28 weeks gestation of Category: Medical Code(s): Z34.90 - Encounter for supervision of normal , unspecified, unspecified trimester (4) Secondary aldosteronism: Status: Acute Category: Medical Code(s): E26.1 - Secondary hyperaldosteronism Plan Ms. Presley is a 34-year-old female, G9, P5 admitted due to hypokalemia and hypomagnesia. She currently denies nausea or vomiting at this time. Denies abdominal pain. She is tolerating p.o. diet without problems. Lab work this morning remarkable for potassium of 4.3 after repletion, no leukocytosis WBC 8.2, mild anemia hemoglobin 9.9, kidney function within normal limits, creatinine 0.7. Patient had echo on 09/20/2024 showing LVEF of 55%, normal BiV function. Transvaginal ultrasound shows shortened cervix of 2.3-defer to OB. #Secondary hyperaldosteronism #Hypokalemia #Hypomagnesemia ? Patient has been getting regular outpatient infusions of magnesium and potassium. She states this has been a chronic issue throughout this and previous pregnancies. She states that this is not been an issue for her previously when she is not . 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 ? During patient's last admission renin activity and aldosterone were checked (send out labs). Renin activity 23.460 and aldosterone 90.7 suggestive of secondary hyperaldosteronism. ? While elevated renin, aldosterone levels during are often adaptive, persistent hypokalemia suggests a more pathological response. Progesterone typically inhibits activity aldosterone activity and helps with potassium retention. Secondary hyperaldosteronism is often a response to an underlying condition such as low blood pressure, renal artery stenosis, nephrotic syndrome or more rarely renin secreting tumor. Adrenal glands are not involved. ? Morning cortisol level normal, less likely to be adrenal insufficiency. ? Follow-up renal duplex ultrasound to evaluate for renal artery stenosis. ? Urine protein previously significantly elevated, 300++ on UA on 09/20/2024. However, urine total [id number] ratio was < 3.5 making nephrotic syndrome unlikely. Will defer proteinuria to primary team. ? Patient's blood pressures have been persistently low, with systolics often in the 90s since March. Low blood pressure can cause low renal perfusion activating RAAS system which in turn can exacerbate underlying secondary hyperaldosteronism. Patient does not seem intravascularly depleted on exam, though fluid resuscitation with bolus can be considered by primary team. Sodium in the low 130s. Consider salt repletion to help with intravascular retention and blood pressure; however, this needs to be balanced with potential volume overload state during . Would recommend consulting MFM on patient's low blood pressures. ? Ultimately, conservative management is recommended for secondary hyperaldosteronism in the setting of . Mineralocorticoid receptor antagonist are typically mainstay of treatment for refractory hypokalemia in secondary hyperaldosteronism, however spironolactone has antiandrogenic effects and is contraindicated during . Would consider amiloride to help reduce effects of elevated aldosterone and help with potassium retention. ? PPIs such as omeprazole can cause hypomagnesemia, patient has discontinued this about 2 weeks ago. ? Ultimately patient needs very close follow-up nephrology for further recommendations. ? Continue to monitor CBC, CMP, magnesium levels during admission. # ?Defer to primary team. Following with [facility] and our [employer] team. Full code Regular diet Ambulate as tolerated #Will continue to follow.
[2024-10-03] VITALS (7 sets, daily range): BP systolic 95–115; BP diastolic 61–63; PULSE 82–120; RESP 16–18; TEMP 36.5–36.8; O2SAT 97–99
--- NOTE | 2024-10-03 06:32 | US_ITS ---
FINAL REPORT TECHNIQUE: Sonographic images of the abdomen were obtained in all four quadrants. CLINICAL HISTORY: abd pain, severe constipation, 31 weeks COMPARISON: None FINDINGS: LIVER: Homogeneous. No focal hepatic lesion or intrahepatic biliary dilatation. Portal vein is normal. GALLBLADDER: No gallstones. No pericholecystic fluid collection or gallbladder wall thickening. The common duct measures 4 mm. This is within normal limits for age. PANCREAS: Tail is obscured, head is normal. RIGHT KIDNEY: 9.1 cm. Minimal dilatation of the right renal collecting system.. LEFT KIDNEY: 10.7 cm. No hydronephrosis, mass or stone. SPLEEN: 11.4 cm. No focal splenic lesion. AORTA/IVC: Aorta is only visualized in the upper abdomen and that portion is normal. OTHER: No ascites. IMPRESSION: Very mild dilatation right renal collecting system, likely hydronephrosis of . No other acute abnormality. Reviewed, Interpreted and Dictated by Jolene Castellon MD Transcribed by Alison Marin Authenticated and [facility]
[2024-10-03 06:33] LABS: Albumin Level 3.0 g/dl (3.5-5.0); Chloride 103 mmol/L (98-107); Potassium 3.5 mmoL/L (3.5-5.1); Sodium 132 mmol/L (136-145)
[2024-10-03 06:35] LABS: Blood Urea Nitrogen 6 mg/dl (7-17); Creatinine Clearance Estimated 178 mL/min (50-200); Creatinine,Serum 0.50 mg/dl (0.52-1.04); Estimated Glomerular Filt Rate 142 ml/min (>60); GFR (African American) 172 ML/MIN (>60)
[2024-10-03 06:36] LABS: Alanine Aminotransferase 83 U/L (12-78); Albumin/Globulin Ratio 1.0 (1.1-1.8); Alkaline Phosphatase 76 U/L (38-126); Anion Gap 6.5 mEq/L (5-15); Aspartate Amino Transferase 107 U/L (14-36); Bilirubin,Total 0.7 mg/dl (0.2-1.3); Calcium 8.3 mg/dl (8.4-10.2); Carbon Dioxide 26 mmol/L (22.0-30.0); Globulin 3.1 g/dL (1.3-3.2); Glucose 77 mg/dl (74-100); Magnesium 1.1 mg/dl (1.6-2.3); Total Protein,Serum 6.1 g/dl (6.3-8.2)
--- NOTE | 2024-10-03 07:00 | CA_ITS ---
FINAL REPORT CLINICAL HISTORY: Secondary hyperaldosteronism,Pt is 31 weeks preg COMPARISON: Ultrasound images of the kidneys were obtained. Duplex Doppler of the renal arteries, RAR and RI also obtained. Spectral analysis was performed. FINDINGS: Limited images of the liver parenchyma demonstrate normal echogenicity. The right kidney measures 9.2 cm in length. It is normal echogenicity. There is no hydronephrosis. RI is 0.46-0.57. The renal artery/aortic ratio: 1.25. The left kidney measures 11.8 cm in length. It is normal echogenicity. There is no hydronephrosis. RI is 0.50-0.60. The renal artery/aortic ratio: 1.4. IMPRESSION: No significant stenosis is identified in the renal arteries. Reviewed, Interpreted and Dictated by Jolene Castellon MD Transcribed by Diana Gomez Authenticated and [facility]
[2024-10-03 07:22] LABS: Hematocrit 27.4 % (37.0-47.0); Hemoglobin 8.9 g/dL (12.2-16.2); Immature Granulocytes % 0.3 %; Mean Corpuscular HGB Conc 32.5 g/dL (31.8-35.4); Mean Corpuscular Hemoglobin 29.3 pg (27.0-31.2); Mean Corpuscular Volume 90.1 fl (81-99); Nucleated Red Blood Cells % 0 %; Platelet Count 214 K/mm3 (142-424); Red Blood Count 3.04 M/mm3 (4.20-5.40); Red Cell Distribution Width-SD 47.2 fL; White Blood Count 7.9 K/mm3 (4.8-10.8)
--- NOTE | 2024-10-03 07:44 | MR_ITS ---
FINAL REPORT TECHNIQUE: Multiplanar multisequence imaging of the abdomen was obtained without contrast. CLINICAL HISTORY: kidneys pt is 31 weeks pain around kidneys FINDINGS: The liver is homogeneous. There is no focal hepatic lesion. The gallbladder is present. The spleen is normal in size and signal intensity. The adrenal glands and pancreas are unremarkable. There is mild right hydronephrosis, likely related to hydronephrosis of . There is no left hydronephrosis. The GI tract is without acute abnormality. No renal mass is identified. There is no ascites or lymphadenopathy. The uterus is enlarged and gravid. The uterus is incompletely imaged. The placenta is anterior. IMPRESSION: Mild right hydronephrosis, likely related to hydronephrosis of . Reviewed, Interpreted and Dictated by Jolene Castellon MD Transcribed by Klarissa Galindo Authenticated and [facility]
--- NOTE | 2024-10-03 07:59 | P.PN_ITS ---
Subjective *Date: 10/03/24 *Time: 07:59 Interval history: Feeling better this morning. Still having some nausea but tolerating PO. She a small firm BM last night followed by some loose stool. She thinks some of the nausea and uneasiness in her stomach is from Miralax. She admits palpitations, muscle weakness and dizziness has been much better. No chest pain or shortness of breath. Baby is active. Medical Exam Vital signs and Labs for Last 24 Hours: Vital Signs Temp Pulse Resp BP Pulse Ox O2 Del Method 10/03/24 04:23 97.7 F 106 H 16 95/62 L 97 Room Air 10/03/24 00:04 98.2 F 93 H 16 110/61 97 Room Air 10/02/24 19:42 98.0 F 100 H 18 87/62 L 99 Room Air 10/02/24 16:50 98.1 F 110 H 17 107/63 L 98 Room Air 10/02/24 11:33 96 H 17 109/65 L 97 Room Air Intake and Output 10/02/24 10/02/24 10/03/24 15:59 23:59 07:59 Intake Total 87.5 / 87.5 Output Total 900 / 900 250 / 250 Balance 87.5 / -812.5 -900 / -812.5 -250 / -250 Intake: Intake, Total IV Amount 87.5 / 87.5 Magnesium Sulfate in Water 2 gm 87.5 / 87.5 In 50 ml @ 50 mls/hr IV Q1H [facility] Rx#:[id number] Output: Output, Urine Amount 900 / 900 250 / 250 Laboratory Results - last 24 hr 10/01/24 09:13: ACTH 10.9 10/03/24 06:05: WBC 7.9, RBC 3.04 L, Hgb 8.9 L, Hct 27.4 L, MCV 90.1, MCH 29.3, MCHC 32.5, RDW 14.5, Plt Count 214, MPV 12.3 H, Neut % (Auto) 50.1, Lymph % (Auto) 36.9, [place] % (Auto) 10.1 H, Eos % (Auto) 2.3, Baso % (Auto) 0.3, Neut # (Auto) 4.0, Lymph # (Auto) 2.9, [place] # (Auto) 0.8, Eos # (Auto) 0.2, Baso # (Auto) 0.0, Sodium 132 L, Potassium 3.5, Chloride 103, Carbon Dioxide 26, Anion Gap 6.5, BUN 6 L, Creatinine 0.50 L D, Estimated Creat Clear 178, Estimated GFR 142, Est GFR ( Amer) 172 D, Glucose 77, Calcium 8.3 L, Magnesium 1.1 L D , Total Bilirubin 0.7, AST 107 H, ALT 83 H, Alkaline Phosphatase 76, Total Protein 6.1 L, Albumin 3.0 L, Globulin 3.1, Albumin/Globulin Ratio 1.0 L I & O for Labs for Last 24 Hours: Intake & Output 09/30/24 10/01/24 10/02/24 10/03/24 23:59 23:59 23:59 23:59 Intake Total 938.333 / 938.333 135.000 / 135.000 87.5 / 87.5 Output Total 900 / 900 250 / 250 Balance 938.333 / 938.333 135.000 / 135.000 -812.5 / -812.5 -250 / -250 Weight 155 lb Head: Present atraumatic and normocephalic ENT: Present normal exam Neck: Present normal inspection and full ROM Respiratory: Present CTA bilaterally and normal respiratory effort Cardiac: Present Reg Rate and Rhythm GI: Present soft (Gravid); Absent tenderness Rectal (female): Present deferred (female): Present deferred Extremities: Present normal inspection and full ROM; Absent edema or calf tenderness Neuro: Present alert, awake and moves all extremities Assessment and Plan *Assessment and plan (1) Hypomagnesemia: Status: Acute Category: Medical Code(s): E83.42 - Hypomagnesemia (2) Hypokalemia: Status: Acute Category: Medical Code(s): E87.6 - Hypokalemia (3) Secondary aldosteronism: Status: Acute Category: Medical Code(s): E26.1 - Secondary hyperaldosteronism (4) Chronic constipation: Status: Acute Category: Medical Code(s): K59.09 - Other constipation (5) IUGR (intrauterine growth restriction) in prior , : Status: Acute Category: Medical Code(s): O09.299 - Supervision of with other poor reproductive or obstetric history, unspecified trimester Plan * Hypokalemia -- She took Klor-con 40 mEq PO TID yesterday -- AM potassium 3.5 (3.8 on 10/02/24) -- Increase Klor-con 40 mEq PO to QID to help maintain and stabilize potassium -- no PPIs. She stopped omeprazole 2 weeks ago. Continue famotidine * Hypomagnesemia -- AM mag level 1.1 -- She received IV mag replacement yesterday -- Discussed PO mag with pharmacy. Will give mag oxide 800 mg this AM followed by 400 mg at 1300 today and recheck mag level later this afternoon. If not improved, will give IV replacement -- Will try to get patient on oral replacement so she can keep magnesium level stable at home * Appreciate hospitalist care and recommendations -- MRI of abdomen ordered to look at kidneys -- Renal duplex ultrasound ordered to look for renal artery stenosis * Transaminitis -- AST stable this morning, 107 (111 on 10/02) -- ALT slightly increased/stable 83 (76 on 10/02) -- RUQ ultrasound this morning -- Appreciated recommendations and care from GI team * chronic constipation -- following with GI -- Continue miralax Continue NST q shift Regular diet Ultrasound 09/19 demonstrated EFW 11%ile. Plan for repeat growth scan outpatient ~ 10/17 Whitney reports she would like to go home today if possible. Will reevaluate this afternoon and repeat mag level. Possible d/c home later today or tomorrow with close follow-up outpatient
[2024-10-03] MEDS: POLYETHYLENE GLYCOL 3350 17 GM PACKET 34 GM PO (10:09)
[2024-10-03] MEDS: PSYLLIUM UD PACKET 1 EACH PO (10:10)
[2024-10-03] MEDS: POTASSIUM CHLORIDE 20MEQ TAB 40 MEQ PO ×4 (10:11→21:10)
[2024-10-03] MEDS: MAGNESIUM OXIDE 400MG TABLET 800 MG PO (10:11)
[2024-10-03] MEDS: MAGNESIUM OXIDE 400MG TABLET 400 MG PO ×2 (12:55→21:10)
--- NOTE | 2024-10-03 13:02 | P.PN_ITS ---
Subjective *Date: 10/03/24 *Time: 13:18 Interval history: Patient ambulating in room. She reports she feels better today. She had a small bowel movement last night and then has had loose stool since then. She denies nausea vomiting or loss of appetite. She is been able to eat well since admission. Still struggling with some electrolyte abnormalities. She also has elevation and not just AST but now ALT as well this morning. Bilirubin 0.7, AST up to 107, ALT at 83 and alk phos of 76. Ultrasound showed no acute abnormalities with liver, CBD, visualized pancreas. Patient does report itching for the past 2 weeks Exam Data for Last 24 hours Vital signs and Labs for Last 24 Hours: Temp Pulse Resp BP Pulse Ox O2 Del Method 98.1 F 82 18 101/63 L 99 Room Air 10/03/24 08:21 10/03/24 08:21 10/03/24 08:21 10/03/24 08:21 10/03/24 08:21 10/03/24 08:21 Laboratory Results - last 24 hr 10/01/24 09:13: ACTH 10.9 10/03/24 06:05: WBC 7.9, RBC 3.04 L, Hgb 8.9 L, Hct 27.4 L, MCV 90.1, MCH 29.3, MCHC 32.5, RDW 14.5, Plt Count 214, MPV 12.3 H, Neut % (Auto) 50.1, Lymph % (Auto) 36.9, [place] % (Auto) 10.1 H, Eos % (Auto) 2.3, Baso % (Auto) 0.3, Neut # (Auto) 4.0, Lymph # (Auto) 2.9, [place] # (Auto) 0.8, Eos # (Auto) 0.2, Baso # (Auto) 0.0, Sodium 132 L, Potassium 3.5, Chloride 103, Carbon Dioxide 26, Anion Gap 6.5, BUN 6 L, Creatinine 0.50 L D, Estimated Creat Clear 178, Estimated GFR 142, Est GFR ( Amer) 172 D, Glucose 77, Calcium 8.3 L, Magnesium 1.1 L D , Total Bilirubin 0.7, AST 107 H, ALT 83 H, Alkaline Phosphatase 76, Total Protein 6.1 L, Albumin 3.0 L, Globulin 3.1, Albumin/Globulin Ratio 1.0 L I & O for Last 24 hours: Intake & Output 10/01/24 10/02/24 10/03/24 10/04/24 11:59 11:59 11:59 11:59 Intake Total 682.500 178.333 Output Total 1250 Balance 682.500 178.333 -1250 Constitutional Constitutional: no acute distress *Routine HEENT Exam Head: Present normocephalic and atraumatic *Routine Neck Exam Neck: Present supple *Routine Respiratory Exam Respiratory: Present CTA bilaterally *Routine Cardiovascular Exam Cardiovascular: Present RRR *Routine Abdominal Exam Abdominal: Present normoactive bowel sounds Comments: gravid *Routine Extremities Exam Extremities: Present pulses intact *Routine Skin Exam Skin: Present intact *Routine Neurological Exam Neurological: Present alert and oriented X3 Assessment and Plan *Assessment and plan (1) Loss of appetite: Status: Acute Category: Medical Code(s): R63.0 - Anorexia (2) Generalized abdominal pain: Status: Acute Category: Medical Code(s): R10.84 - Generalized abdominal pain (3) Chronic constipation: Status: Acute Category: Medical Code(s): K59.09 - Other constipation (4) Nausea and vomiting: Status: Acute Qualifiers: Vomiting type: unspecified Qualified Code(s): R11.2 - Nausea with vomiting, unspecified Category: Medical Code(s): R11.2 - Nausea with vomiting, unspecified (5) GERD (gastroesophageal reflux disease): Status: Acute Qualifiers: Esophagitis presence: without esophagitis Qualified Code(s): K21.9 - Gastro-esophageal reflux disease without esophagitis Category: Medical Code(s): K21.9 - Gastro-esophageal reflux disease without esophagitis (6) Elevated liver enzymes: Status: Acute Category: Medical Code(s): R74.8 - Abnormal levels of other serum enzymes (7) Pruritus: Status: Acute Category: Medical Code(s): L29.9 - Pruritus, unspecified Plan 1. Chronic constipation/nausea vomiting/GERD/generalized abdominal pain/loss of appetite Patient has a long history of variable bowel movements, poor gastric emptying, and acid reflux, dyspepsia symptoms. Symptoms have worsened throughout her and she denies having a bowel movement at all for the past 5 weeks. Unsure of patient's compliance with at home medications. After her first dose of 34 g of MiraLAX plus Citrucel yesterday she had a small bowel movement and then loose stool since. She has had second dose this morning. Currently nausea vomiting, abdominal pain, loss of appetite, GERD symptoms have resolved. She has been able to eat and drink appropriately. We are working on p.o. intake of electrolyte replacement. As this regimen seems to work for her, I recommend double dose MiraLAX plus powdered fiber Citrucel twice daily at home. I agree with weaning off of the omeprazole to improve her nutritional absorption. May utilize Pepcid twice daily if needed. Will see her in the office 2 weeks after discharge. Will need EGD and colonoscopy as an outpatient after delivery. 2. Elevated LFTs/pruritus Liver enzymes have gradually and slowly increase since admission with normal bilirubin 0.7, AST at 107 this morning, ALT at 83, and alk phos 76. In the setting of nausea vomiting weight loss and electrolyte abnormalities the patient has been experiencing, mild AST and ALT elevations can be seen. Usually after patient is able to reintroduce foods nausea vomiting is controlled electrolyte abnormalities are addressed that will they will return to normal. With the increasing AST and the elevation of ALT. Patient now reports has been itching for 2 weeks. She also reports that both mom and dad had POSADA cirrhosis. No signs of abnormalities in liver or CBD. No hepatic steatosis noted on ultrasound. Will check serum bile acid, repeat hepatitis panel, look at autoimmune markers and alpha-1 antitrypsin given family history of cirrhosis on both sides. I would like to see patient for follow-up about 2 weeks after discharge. Most of these labs should be resulted by then.
[2024-10-03 13:36] LABS: Collection Time,Urine 24 hours; Total Volume,Urine 850 mL (600-1600)
[2024-10-03 13:37] LABS: Total Volume,Urine 850 mL (600-1600)
[2024-10-03 13:45] LABS: Total Protein 24 Hour,Urine 68 mg/24 hr (40-90)
[2024-10-03 13:46] LABS: Creatinine 24 Hour,Urine 859 mg/24hr (630-2500)
--- NOTE | 2024-10-03 17:15 | P.PN_ITS ---
Subjective *Date: 10/03/24 *Time: 21:58 Interval history: Patient is doing well, no acute concerns. She states she has not had a bowel movement in 5 weeks, has been started on MiraLAX by primary team and has had bowel movements today. Exam Data for Last 24 hours Vital signs and Labs for Last 24 Hours: Temp Pulse Resp BP Pulse Ox O2 Del Method 98.2 F 108 H 18 115/61 97 Room Air 10/03/24 16:43 10/03/24 16:43 10/03/24 16:43 10/03/24 16:43 10/03/24 16:43 10/03/24 16:43 Laboratory Results - last 24 hr 10/02/24 12:45: Urine Collection Time 24, Urine Total Volume 850 10/02/24 12:45: Urine Total Volume 850, Urine Creatinine 101, Ur Creatinine 24 Hour 859, Ur Total Protein 24 Hr 68, Urine Total Protein 8.0 10/03/24 06:05: WBC 7.9, RBC 3.04 L, Hgb 8.9 L, Hct 27.4 L, MCV 90.1, MCH 29.3, MCHC 32.5, RDW 14.5, Plt Count 214, MPV 12.3 H, Neut % (Auto) 50.1, Lymph % (Auto) 36.9, [place] % (Auto) 10.1 H, Eos % (Auto) 2.3, Baso % (Auto) 0.3, Neut # (Auto) 4.0, Lymph # (Auto) 2.9, [place] # (Auto) 0.8, Eos # (Auto) 0.2, Baso # (Auto) 0.0, Sodium 132 L, Potassium 3.5, Chloride 103, Carbon Dioxide 26, Anion Gap 6.5, BUN 6 L, Creatinine 0.50 L D, Estimated Creat Clear 178, Estimated GFR 142, Est GFR ( Amer) 172 D, Glucose 77, Calcium 8.3 L, Magnesium 1.1 L D , Total Bilirubin 0.7, AST 107 H, ALT 83 H, Alkaline Phosphatase 76, Total Protein 6.1 L, Albumin 3.0 L, Globulin 3.1, Albumin/Globulin Ratio 1.0 L 10/03/24 16:39: PT 12.3, INR 1.12 H, Potassium 3.3 L, Magnesium 1.1 L Temp Pulse Resp BP Pulse Ox O2 Del Method 98.1 F 82 18 101/63 L 99 Room Air 10/03/24 08:21 10/03/24 08:21 10/03/24 08:21 10/03/24 08:21 10/03/24 08:21 10/03/24 08:21 Laboratory Results - last 24 hr 10/01/24 09:13: ACTH 10.9 10/03/24 06:05: WBC 7.9, RBC 3.04 L, Hgb 8.9 L, Hct 27.4 L, MCV 90.1, MCH 29.3, MCHC 32.5, RDW 14.5, Plt Count 214, MPV 12.3 H, Neut % (Auto) 50.1, Lymph % (Auto) 36.9, [place] % (Auto) 10.1 H, Eos % (Auto) 2.3, Baso % (Auto) 0.3, Neut # (Auto) 4.0, Lymph # (Auto) 2.9, [place] # (Auto) 0.8, Eos # (Auto) 0.2, Baso # (Auto) 0.0, Sodium 132 L, Potassium 3.5, Chloride 103, Carbon Dioxide 26, Anion Gap 6.5, BUN 6 L, Creatinine 0.50 L D, Estimated Creat Clear 178, Estimated GFR 142, Est GFR ( Amer) 172 D, Glucose 77, Calcium 8.3 L, Magnesium 1.1 L D , Total Bilirubin 0.7, AST 107 H, ALT 83 H, Alkaline Phosphatase 76, Total Protein 6.1 L, Albumin 3.0 L, Globulin 3.1, Albumin/Globulin Ratio 1.0 L I & O for Last 24 hours: Intake & Output 09/30/24 10/01/24 10/02/24 10/03/24 23:59 23:59 23:59 23:59 Intake Total 938.333 / 938.333 135.000 / 135.000 87.5 / 87.5 150 / 150 Output Total 900 / 900 350 / 350 Balance 938.333 / 938.333 135.000 / 135.000 -812.5 / -812.5 -200 / -200 Weight 70.307 kg Intake & Output 10/01/24 10/02/24 10/03/24 10/04/24 11:59 11:59 11:59 11:59 Intake Total 682.500 178.333 Output Total 1250 Balance 682.500 178.333 -1250 Constitutional Constitutional: no acute distress *Routine HEENT Exam Head: Present normocephalic and atraumatic *Routine Neck Exam Neck: Present supple *Routine Respiratory Exam Respiratory: Present CTA bilaterally *Routine Cardiovascular Exam Cardiovascular: Present RRR *Routine Abdominal Exam Abdominal: Present normoactive bowel sounds Comments: gravid *Routine Extremities Exam Extremities: Present pulses intact *Routine Skin Exam Skin: Present intact *Routine Neurological Exam Neurological: Present alert and oriented X3 Assessment and Plan *Assessment and plan (1) Hypokalemia: Status: Acute Category: Medical Code(s): E87.6 - Hypokalemia (2) Hypomagnesemia: Status: Acute Category: Medical Code(s): E83.42 - Hypomagnesemia (3) : Status: Acute Qualifiers: Weeks of gestation: 28 weeks Qualified Code(s): Z3A.28 - 28 weeks gestation of Category: Medical Code(s): Z34.90 - Encounter for supervision of normal , unspecified, unspecified trimester (4) Secondary aldosteronism: Status: Acute Category: Medical Code(s): E26.1 - Secondary hyperaldosteronism Plan Ms. Presley is a 34-year-old female, G9, P5 admitted due to hypokalemia and hypomagnesia. She currently denies nausea or vomiting at this time. Denies abdominal pain. She is tolerating p.o. diet without problems. Lab work this morning remarkable for potassium of 4.3 after repletion, no leukocytosis WBC 8.2, mild anemia hemoglobin 9.9, kidney function within normal limits, creatinine 0.7. Patient had echo on 09/20/2024 showing LVEF of 55%, normal BiV function. Transvaginal ultrasound shows shortened cervix of 2.3-defer to OB. #Secondary hyperaldosteronism #Hypokalemia #Hypomagnesemia ? Patient has been getting regular outpatient infusions of magnesium and potassium. She states this has been a chronic issue throughout this and previous pregnancies. She states that this is not been an issue for her previously when she is not . Is following with high risk ob and nephrology. ? During patient's last admission renin activity and aldosterone were checked (send out labs). Renin activity 23.460 and aldosterone 90.7 suggestive of secondary hyperaldosteronism. ? While elevated renin, aldosterone levels during are often adaptive, persistent hypokalemia suggests a more pathological response. Progesterone typically inhibits activity aldosterone activity and helps with potassium retention. Secondary hyperaldosteronism is often a response to an underlying condition such as low blood pressure, renal artery stenosis, nephrotic syndrome or more rarely renin secreting tumor. Adrenal glands are not involved. ? Morning cortisol level normal, less likely to be adrenal insufficiency. ? Renal duplex ultrasound did not show renal artery stenosis, and abdominal MRI did not show tumor burden. ? Urine protein previously significantly elevated, 300++ on UA on 09/20/2024. However, urine total [id number] ratio was < 3.5 making nephrotic syndrome unlikely. Will defer proteinuria to primary team. ? Patient's blood pressures have been persistently low, with systolics often in the 90s since March. Low blood pressure can cause low renal perfusion activating RAAS system which in turn can exacerbate underlying secondary hyperaldosteronism. Patient does not seem intravascularly depleted on exam. Sodium in the low 130s. Consider salt repletion to help with intravascular retention and blood pressure; however, this needs to be balanced with potential volume overload state during . ? Follow-up phosphorus level, which may sometimes affect magnesium and potassium levels. ? Follow-up comprehensive JEFFERY panel to evaluate for possible autoimmune renal pathologies. ? Would consider decreasing dose of MiraLAX if patient is no longer constipated to reduce risk of GI electrolyte loss from diarrhea. ? Appreciate GI recommendations and workup for malabsorption conditions. Agree with EGD after . ? Conservative management is recommended for secondary hyperaldosteronism in the setting of . Mineralocorticoid receptor antagonist are typically mainstay of treatment for refractory hypokalemia in secondary hyperaldosteronism, however spironolactone has antiandrogenic effects and is contraindicated during . Would consider amiloride to help reduce effects of elevated aldosterone and help with potassium retention. ? PPIs such as omeprazole can cause hypomagnesemia, patient has discontinued this about 2 weeks ago. ? Ultimately patient needs very close follow-up with nephrology for further recommendations. ? Continue to monitor CBC, CMP, magnesium levels during admission. ? Continue magnesium, potassium repletion per primary team. # ? Defer to primary team. Following with [facility] and our [employer] ANALYST team.
--- NOTE | 2024-10-03 17:30 | P.DS_ITS ---
General Admission date:: 09/30/24 Hospital Course Hospital Course Hospital Course: Mrs Whitney Presley is a 34yo at 31w1d admitted to [facility] L&D with complaints of for chest pain, chest burning, pulmonary episodes , dizziness, syncopal episodes, and concerns for seizure activity at home. She has been receiving frequent potassium and magnesium replacement for excessive loss of potassium and magnesium in . She has frequent admission and office visits. She reports this occurs every but this has been the worst. She had electrolyte replacement on 09/28/24, and and presented 09/30/24 with critical levels. Potassium was 2.5 and magnesium was 0.9. She has had evaluation from nephrology, [facility], and [facility] After discussing electrolyte symptoms pt complained of lower abdominal pain and cramping and increased vaginal discharge. She had a negative FFN 09/19 and cervical length was 2.3-2.7, no funneling. She has also been struggling with constipation and following outpatient with GI. She is taking Miralax and famotidine. She is also using antiemetics to help with nausea. While inpatient she had IV potassium and magnesium replacement. She was converted to oral potassium replacement with stable potassium levels in AM labs. Mag level was still variable after IV replacement. She was seen by the hospitalist and GI while inpatient and labs and imaging were ordered. She had mild transmaminitis of unknown etiology. RUQ ultrasound was within normal limits and only showed mild right hydronephrosis. Renal artery duplex showed no stenosis in the renal arteries. AM Cortisol level was normal. Renin and aldosterone levels were elevated. MRI of kidneys and adrenals demonstrated mild hydronephrosis but otherwise normal MRI. Exam Data for Last 24 hours Vital signs and Labs for Last 24 Hours: Temp Pulse Resp BP Pulse Ox O2 Del Method 98.1 F 82 18 101/63 L 99 Room Air 10/03/24 08:21 10/03/24 08:21 10/03/24 08:21 10/03/24 08:21 10/03/24 08:21 10/03/24 08:21 Laboratory Results - last 24 hr 10/02/24 12:45: Urine Collection Time 24, Urine Total Volume 850 10/02/24 12:45: Urine Total Volume 850, Urine Creatinine 101, Ur Creatinine 24 Hour 859, Ur Total Protein 24 Hr 68, Urine Total Protein 8.0 10/03/24 06:05: WBC 7.9, RBC 3.04 L, Hgb 8.9 L, Hct 27.4 L, MCV 90.1, MCH 29.3, MCHC 32.5, RDW 14.5, Plt Count 214, MPV 12.3 H, Neut % (Auto) 50.1, Lymph % (Auto) 36.9, [place] % (Auto) 10.1 H, Eos % (Auto) 2.3, Baso % (Auto) 0.3, Neut # (Auto) 4.0, Lymph # (Auto) 2.9, [place] # (Auto) 0.8, Eos # (Auto) 0.2, Baso # (Auto) 0.0, Sodium 132 L, Potassium 3.5, Chloride 103, Carbon Dioxide 26, Anion Gap 6.5, BUN 6 L, Creatinine 0.50 L D, Estimated Creat Clear 178, Estimated GFR 142, Est GFR ( Amer) 172 D, Glucose 77, Calcium 8.3 L, Magnesium 1.1 L D , Total Bilirubin 0.7, AST 107 H, ALT 83 H, Alkaline Phosphatase 76, Total Protein 6.1 L, Albumin 3.0 L, Globulin 3.1, Albumin/Globulin Ratio 1.0 L I & O for Last 24 hours: Intake & Output 09/30/24 10/01/24 10/02/24 10/03/24 23:59 23:59 23:59 23:59 Intake Total 938.333 / 938.333 135.000 / 135.000 87.5 / 87.5 Output Total 900 / 900 350 / 350 Balance 938.333 / 938.333 135.000 / 135.000 -812.5 / -812.5 -350 / -350 Weight 155 lb Results Data Completed and Pending Labs on day of discharge: Labs from last 24 hours 10/03/24 10/02/24 10/02/24 06:05 12:45 12:45 WBC 7.9 RBC 3.04 L Hgb 8.9 L Hct 27.4 L MCV 90.1 MCH 29.3 MCHC 32.5 RDW 14.5 Plt Count 214 MPV 12.3 H Neut % (Auto) 50.1 Lymph % (Auto) 36.9 [place] % (Auto) 10.1 H Eos % (Auto) 2.3 Baso % (Auto) 0.3 Neut # (Auto) 4.0 Lymph # (Auto) 2.9 [place] # (Auto) 0.8 Eos # (Auto) 0.2 Baso # (Auto) 0.0 Sodium 132 L Potassium 3.5 Chloride 103 Carbon Dioxide 26 Anion Gap 6.5 BUN 6 L Creatinine 0.50 L D Estimated Creat Clear 178 Estimated GFR 142 Est GFR ( Amer) 172 D Glucose 77 Calcium 8.3 L Magnesium 1.1 L D Total Bilirubin 0.7 AST 107 H ALT 83 H Alkaline Phosphatase 76 Total Protein 6.1 L Albumin 3.0 L Globulin 3.1 Albumin/Globulin Ratio 1.0 L Urine Collection Time 24 Urine Total Volume 850 850 Urine Creatinine 101 Ur Creatinine 24 Hour 859 Ur Total Protein 24 Hr 68 Urine Total Protein 8.0 DS: Diagnosis Discharge Diagnosis (1) Hypokalemia: Status: Acute Code(s): E87.6 - Hypokalemia (2) Hypomagnesemia: Status: Acute Code(s): E83.42 - Hypomagnesemia (3) : Status: Acute Code(s): Z34.90 - Encounter for supervision of normal , unspecified, unspecified trimester Qualifiers: Weeks of gestation: 28 weeks Qualified Code(s): Z3A.28 - 28 weeks gestation of (4) Secondary aldosteronism: Status: Acute Code(s): E26.1 - Secondary hyperaldosteronism Meds Home Medications and Allergies Home Medications ?Medication ?Instructions ?Recorded ?Confirmed ?Type omeprazole 20 mg capsule,delayed 20 mg PO DAILY 09/30/24 History release vit no.95-ferrous 1 tab PO DAILY 09/02/24 History fumarate 28 mg-folic acid 800 mcg tablet () thiamine HCl (vitamin B1) 100 mg 100 mg PO DAILY 09/0209/30/24 History tablet ferrous sulfate 325 mg (65 mg 325 mg PO DAILY #30 tabs 09/12/24 09/30/24 Rx iron) tablet (Iron (ferrous sulfate)) metoprolol succinate 25 mg 12.5 mg PO DAILY 09/25/24 0 09/30/24 History tablet,extended release 24 hr potassium chloride 10 mEq 20 meq PO BID 09/25/2409/30 History tablet,extended release(part/cryst) magnesium glycinate 100 mg (as 420 mg PO DAILY 5 09/30/24 History glycinate) tablet promethazine 12.5 mg tablet 12.5 mg PO TID PRN Nausea And 09/30/24 09/30/24 Hist ory Vomiting New Prescriptions to Start Prescriptions: Allergies Allergy/AdvReac Type Severity Reaction Status Date / Time peanut Allergy Severe Hives Verified 09/26/24 12:00 Discharge Plan Follow up Plan Follow up with: Claudia Hooper APRN [Nurse Practitioner, Gastroenterology] - Enter time for follow up Prescriptions/Medication Reconciliation: No Action metoprolol succinate 25 mg tablet extended release 24 hr 12.5 mg PO DAILY potassium chloride 10 mEq tablet,ER particles/crystals 20 meq PO BID Patient Comments: Patient reports taking 2 10 meq twice daily omeprazole 20 mg Capsule,Delayed Release(Dr/Ec) 20 mg PO DAILY thiamine HCl (vitamin B1) 100 mg tablet 100 mg PO DAILY PNV no.95-ferrous fumarate-FA [] 28 mg iron- 800 mcg Tablet 1 tab PO DAILY ferrous sulfate [Iron (ferrous sulfate)] 325 mg (65 mg iron) Tablet 325 mg PO DAILY Qty: 30 3RF magnesium glycinate 100 mg Tablet 420 mg PO DAILY Patient Comments: Patient reports taking an OTC magnesium glycinate 420mg at HS promethazine 12.5 mg tablet 12.5 mg PO TID PRN (Reason: Nausea And Vomiting) Patient Discharge Instructions Print Language: Amharic Providers Primary Care Provider: Norma Friedman Admit Provider: Josefina Justice Attending Provider: Josefina Justice
[2024-10-03 17:39] LABS: Potassium 3.3 mmoL/L (3.5-5.1)
[2024-10-03 17:47] LABS: INR 1.12 (0.9-1.1); Prothrombin Time 12.3 seconds (10.1-12.5)
[2024-10-03 17:57] LABS: Magnesium 1.1 mg/dl (1.6-2.3)
[2024-10-03] MEDS: MAGNESIUM SULFATE IN WATER 2 GM/50 ML PIGGYBACK IV ×3 (20:36→22:52)
[2024-10-03] MEDS: PROMETHAZINE HCL 25MG/ML 1ML VIAL 25 MG IV (20:56)
[2024-10-03 22:18] LABS: Phosphorous 3.5 mg/dl (2.5-4.5)
[2024-10-04] VITALS: BP 93/55; PULSE 78; PULSE 92; RESP 15; TEMP 36.5; O2SAT 97
[2024-10-04 04:00] VITALS: PULSE 84
[2024-10-04] MEDS: PROMETHAZINE HCL 25MG/ML 1ML VIAL 25 MG IV (06:52)
[2024-10-04 06:59] LABS: Magnesium 2.0 mg/dl (1.6-2.3)
[2024-10-04 07:25] LABS: Albumin Level 2.6 g/dl (3.5-5.0); Chloride 108 mmol/L (98-107); Potassium 4.4 mmoL/L (3.5-5.1); Sodium 132 mmol/L (136-145)
[2024-10-04 07:28] LABS: Alanine Aminotransferase 71 U/L (12-78); Albumin/Globulin Ratio 1.0 (1.1-1.8); Alkaline Phosphatase 75 U/L (38-126); Anion Gap 4.4 mEq/L (5-15); Aspartate Amino Transferase 86 U/L (14-36); Bilirubin,Total 0.8 mg/dl (0.2-1.3); Blood Urea Nitrogen 5 mg/dl (7-17); Calcium 8.1 mg/dl (8.4-10.2); Carbon Dioxide 24 mmol/L (22.0-30.0); Creatinine Clearance Estimated 178 mL/min (50-200); Creatinine,Serum 0.50 mg/dl (0.52-1.04); Estimated Glomerular Filt Rate 142 ml/min (>60); GFR (African American) 172 ML/MIN (>60); Globulin 2.5 g/dL (1.3-3.2); Glucose 70 mg/dl (74-100); Total Protein,Serum 5.1 g/dl (6.3-8.2)
[2024-10-04 07:30] VITALS: BP 98/63; PULSE 90; RESP 17; TEMP 36.8; O2SAT 100
[2024-10-04 08:37] LABS: Hematocrit 26.1 % (37.0-47.0); Hemoglobin 8.2 g/dL (12.2-16.2); Immature Granulocytes % 0.4 %; Mean Corpuscular HGB Conc 31.4 g/dL (31.8-35.4); Mean Corpuscular Hemoglobin 28.9 pg (27.0-31.2); Mean Corpuscular Volume 91.9 fl (81-99); Nucleated Red Blood Cells % 0 %; Platelet Count 170 K/mm3 (142-424); Red Blood Count 2.84 M/mm3 (4.20-5.40); Red Cell Distribution Width-SD 48.3 fL; White Blood Count 7.6 K/mm3 (4.8-10.8)
--- NOTE | 2024-10-04 08:49 | EXP.DC.SUM ---
General Admission date:: 09/30/24 Discharge date: 10/04/24 HPI HPI HPI: Whitney Presley is a 34yo presenting today for chest pain, chest burning, pulmonary episodes , dizziness, syncopal episodes, and concerns for seizure activity at home. She is 31w1d gestation today. She had electrolyte replacement on Monday and and presents today with critical levels. She has had evaluation from nephrology, [facility], and [facility]. After discussing electrolyte symptoms pt complained of lower abdominal pain and cramping and increased vaginal discharge. admission H&P This is a 34-year-old female who was seen in our GI office last week. The patient has a history of bowel dysfunction and acid reflux. She was seen by Dr. Baer at the end of last year and was scheduled for panendoscopy. Before she could complete that, she found out she was . During , she reports she has had worsening constipation nausea and vomiting. The patient reports no bowel movement for 5 weeks. She currently takes 2 capfuls of MiraLAX plus a Citrucel tablet daily. Over the past 5 or 6 weeks she has tried glycerin suppositories for a week, saline enemas for 4 days, 2 days of stimulant laxatives, 2 weeks of milk of magnesia that she has tried multiple times. She is taking a stool softener daily. She is taking 2 capfuls of MiraLAX and 1 tablet of Citrucel every day. She tried a mag citrate bottle 2 weeks ago without any production. She does take Pepcid and omeprazole every day. She is eating 6 Tums per day because of the severe acid reflux. She reports dysphagia and globus sensation. Some of the symptoms are issues from prior to her but seem to have just gotten progressively worse. She previously reported a diagnosis of gastroparesis and a delayed gastric emptying study previously. The patient initially reported loss of appetite and weight loss. She reports electrolyte imbalances and inability to keep food or fluids down. Last week the patient reported that because of the severe constipation and the nausea and vomiting and the loss of appetite she has had weight loss and subsequent intrauterine growth restriction. She has been giving mixed information and different stories about her symptoms. Today the patient reports that she has had no loss of appetite just the vomiting was keeping her from gaining weight. Since inpatient admission, the patient's potassium has normalized with oral replacement. She is sitting up in bed eating a large lunch. Per nursing the patient has not had a bowel movement since admission but she has been eating large meals persistently. She has been drinking lots of fluid. The patient denies nausea, vomiting, loss of appetite, abdominal pain currently. Hospital Course Hospital Course Hospital Course: Jazmyne Presley is a 34-year-old who presented to labor and delivery the morning of 09/30/2024 with symptoms described in HPI. She was admitted and during this stay she was evaluated by her primary [employer] team, internal medicine team, and GI. It is noteworthy that that we were able to establish that Ana is able to maintain her potassium with p.o. potassium. On the admission date of 09/30/2024 she received several rounds of IV potassium without significant improvement in her potassium and that evening we did 40 mEq of p.o. potassium every 3 hours and it significantly improved her potassium levels. At discharge we are doing 4 times daily 40 mEq of potassium. Her magnesium is still requiring some IV magnesium to maintain her at therapeutic levels but she is also taking 800 mg twice daily of magnesium oxide. She was having issues with constipation which has since resolved with MiraLAX and fiber packets. Very appreciative of internal medicine's help with this interesting case: See their most recent note below Ms. Presley is a 34-year-old female, G9, P5 admitted due to hypokalemia and hypomagnesia. She currently denies nausea or vomiting at this time. Denies abdominal pain. She is tolerating p.o. diet without problems. Lab work this morning remarkable for potassium of 4.3 after repletion, no leukocytosis WBC 8.2, mild anemia hemoglobin 9.9, kidney function within normal limits, creatinine 0.7. Patient had echo on 09/20/2024 showing LVEF of 55%, normal BiV function. Transvaginal ultrasound shows shortened cervix of 2.3-defer to OB. #Secondary hyperaldosteronism #Hypokalemia #Hypomagnesemia ? Patient has been getting regular outpatient infusions of magnesium and potassium. She states this has been a chronic issue throughout this and previous pregnancies. She states that this is not been an issue for her previously when she is not . 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 ? During patient's last admission renin activity and aldosterone were checked (send out labs). Renin activity 23.460 and aldosterone 90.7 suggestive of secondary hyperaldosteronism. ? While elevated renin, aldosterone levels during are often adaptive, persistent hypokalemia suggests a more pathological response. Progesterone typically inhibits activity aldosterone activity and helps with potassium retention. Secondary hyperaldosteronism is often a response to an underlying condition such as low blood pressure, renal artery stenosis, nephrotic syndrome or more rarely renin secreting tumor. Adrenal glands are not involved. ? Morning cortisol level normal, less likely to be adrenal insufficiency. ? Renal duplex ultrasound did not show renal artery stenosis, and abdominal MRI did not show tumor burden. ? Urine protein previously significantly elevated, 300++ on UA on 09/20/2024. However, urine total [id number] ratio was < 3.5 making nephrotic syndrome unlikely. Will defer proteinuria to primary team. ? Patient's blood pressures have been persistently low, with systolics often in the 90s since March. Low blood pressure can cause low renal perfusion activating RAAS system which in turn can exacerbate underlying secondary hyperaldosteronism. Patient does not seem intravascularly depleted on exam. Sodium in the low 130s. Consider salt repletion to help with intravascular retention and blood pressure; however, this needs to be balanced with potential volume overload state during . ? Follow-up phosphorus level, which may sometimes affect magnesium and potassium levels. ? Follow-up comprehensive JEFFERY panel to evaluate for possible autoimmune renal pathologies. ? Would consider decreasing dose of MiraLAX if patient is no longer constipated to reduce risk of GI electrolyte loss from diarrhea. ? Appreciate GI recommendations and workup for malabsorption conditions. Agree with EGD after . ? Conservative management is recommended for secondary hyperaldosteronism in the setting of . Mineralocorticoid receptor antagonist are typically mainstay of treatment for refractory hypokalemia in secondary hyperaldosteronism, however spironolactone has antiandrogenic effects and is contraindicated during . Would consider amiloride to help reduce effects of elevated aldosterone and help with potassium retention. ? PPIs such as omeprazole can cause hypomagnesemia, patient has discontinued this about 2 weeks ago. ? Ultimately patient needs very close follow-up with nephrology for further recommendations. ? Continue to monitor CBC, CMP, magnesium levels during admission. ? Continue magnesium, potassium repletion per primary team. The gastroenterology team also was extremely helpful in the care of this patient, their note is also summarized below For a GI standpoint we are still following her transaminitis with an AST at 107 and ALT at 83. She had a right upper quadrant ultrasound with no abnormalities of the liver, common bile duct, and the pancreas was visualized without abnormalities 1. Chronic constipation/nausea vomiting/GERD/generalized abdominal pain/loss of appetite Patient has a long history of variable bowel movements, poor gastric emptying, and acid reflux, dyspepsia symptoms. Symptoms have worsened throughout her and she denies having a bowel movement at all for the past 5 weeks. Unsure of patient's compliance with at home medications. After her first dose of 34 g of MiraLAX plus Citrucel yesterday she had a small bowel movement and then loose stool since. She has had second dose this morning. Currently nausea vomiting, abdominal pain, loss of appetite, GERD symptoms have resolved. She has been able to eat and drink appropriately. We are working on p.o. intake of electrolyte replacement. As this regimen seems to work for her, I recommend double dose MiraLAX plus powdered fiber Citrucel twice daily at home. I agree with weaning off of the omeprazole to improve her nutritional absorption. May utilize Pepcid twice daily if needed. Will see her in the office 2 weeks after discharge. Will need EGD and colonoscopy as an outpatient after delivery. 2. Elevated LFTs/pruritus Liver enzymes have gradually and slowly increase since admission with normal bilirubin 0.7, AST at 107 this morning, ALT at 83, and alk phos 76. In the setting of nausea vomiting weight loss and electrolyte abnormalities the patient has been experiencing, mild AST and ALT elevations can be seen. Usually after patient is able to reintroduce foods nausea vomiting is controlled electrolyte abnormalities are addressed that will they will return to normal. With the increasing AST and the elevation of ALT. Patient now reports has been itching for 2 weeks. She also reports that both mom and dad had POSADA cirrhosis. No signs of abnormalities in liver or CBD. No hepatic steatosis noted on ultrasound. Will check serum bile acid, repeat hepatitis panel, look at autoimmune markers and alpha-1 antitrypsin given family history of cirrhosis on both sides. I would like to see patient for follow-up about 2 weeks after discharge. Most of these labs should be resulted by then. Of note AST and ALT are significantly improved this morning AST is down to 86 from 107 and ALT is down to 71 from 83 At this time Jazmyne's constipation has significantly improved and she is having regular bowel movements. Her electrolytes seem to be doing well with p.o. replacement. She will follow-up on Monday and we will do a CMP with a magnesium and replace her as necessary. When she returns on Monday we should address the low sodium and discuss replacing that as well. We should also replace her calcium, and this will be given prior to discharge today Exam Data for Last 24 hours Vital signs and Labs for Last 24 Hours: Temp Pulse Resp BP Pulse Ox O2 Del Method 98.3 F 90 17 98/63 L 100 Room Air 10/04/24 07:30 10/04/24 07:30 10/04/24 07:30 10/04/24 07:30 10/04/24 07:30 10/04/24 07:30 Laboratory Results - last 24 hr 10/02/24 12:45: Urine Collection Time 24, Urine Total Volume 850 10/02/24 12:45: Urine Total Volume 850, Urine Creatinine 101, Ur Creatinine 24 Hour 859, Ur Total Protein 24 Hr 68, Urine Total Protein 8.0 10/03/24 16:39: PT 12.3, INR 1.12 H, Potassium 3.3 L, Phosphorus 3.5, Magnesium 1.1 L 10/04/24 06:28: WBC 7.6, RBC 2.84 L, Hgb 8.2 L, Hct 26.1 L, MCV 91.9, MCH 28.9, MCHC 31.4 L, RDW 14.5, Plt Count 170, MPV 12.3 H, Neut % (Auto) 53.3, Lymph % (Auto) 35.7, [place] % (Auto) 9.1, Eos % (Auto) 1.2, Baso % (Auto) 0.3, Neut # (Auto) 4.1, Lymph # (Auto) 2.7, [place] # (Auto) 0.7, Eos # (Auto) 0.1, Baso # (Auto) 0.0, Sodium 132 L, Potassium 4.4 D, Chloride 108 H, Carbon Dioxide 24, Anion Gap 4.4 L, BUN 5 L, Creatinine 0.50 L, Estimated Creat Clear 178, Estimated GFR 142, Est GFR ( Amer) 172, Glucose 70 L, Calcium 8.1 L, Magnesium 2.0 D, Total Bilirubin 0.8, AST 86 H, ALT 71, Alkaline Phosphatase 75, Total Protein 5.1 L, Albumin 2.6 L D, Globulin 2.5, Albumin/Globulin Ratio 1.0 L I & O for Last 24 hours: Intake & Output 10/01/24 10/02/24 10/03/24 10/04/24 23:59 23:59 23:59 23:59 Intake Total 135.000 / 135.000 87.5 / 87.5 449.167 / 449.167 700 / 700 Output Total 900 / 900 350 / 350 Balance 135.000 / 135.000 -812.5 / -812.5 99.167 / 99.167 700 / 700 Constitutional Constitutional: no acute distress *Routine HEENT Exam Head: Present normocephalic Eye: Present EOMI and PERRL ENT: Present mucous membranes moist *Routine Neck Exam Neck: Present supple; Absent lymphadenopathy *Routine Respiratory Exam Respiratory: Present CTA bilaterally *Routine Cardiovascular Exam Cardiovascular: Present tachycardia *Routine Abdominal Exam Abdominal: Present soft and normoactive bowel sounds; Absent tenderness *Routine Extremities Exam Extremities: Absent cyanosis, clubbing or edema *Routine Skin Exam Skin: Present warm; Absent rash *Routine Neurological Exam Neurological: Present alert and oriented X3 Results Data Completed and Pending Labs on day of discharge: Labs from last 24 hours 10/04/24 10/03/24 10/02/24 06:28 16:39 12:45 WBC 7.6 RBC 2.84 L Hgb 8.2 L Hct 26.1 L MCV 91.9 MCH 28.9 MCHC 31.4 L RDW 14.5 Plt Count 170 MPV 12.3 H Neut % (Auto) 53.3 Lymph % (Auto) 35.7 [place] % (Auto) 9.1 Eos % (Auto) 1.2 Baso % (Auto) 0.3 Neut # (Auto) 4.1 Lymph # (Auto) 2.7 [place] # (Auto) 0.7 Eos # (Auto) 0.1 Baso # (Auto) 0.0 PT 12.3 INR 1.12 H Sodium 132 L Potassium 4.4 D 3.3 L Chloride 108 H Carbon Dioxide 24 Anion Gap 4.4 L BUN 5 L Creatinine 0.50 L Estimated Creat Clear 178 Estimated GFR 142 Est GFR ( Amer) 172 Glucose 70 L Calcium 8.1 L Phosphorus 3.5 Magnesium 2.0 D 1.1 L Total Bilirubin 0.8 AST 86 H ALT 71 Alkaline Phosphatase 75 Total Protein 5.1 L Albumin 2.6 L D Globulin 2.5 Albumin/Globulin Ratio 1.0 L Urine Collection Time Urine Total Volume 850 Urine Creatinine 101 Ur Creatinine 24 Hour 859 Ur Total Protein 24 Hr 68 Urine Total Protein 8.0 10/02/24 12:45 WBC RBC Hgb Hct MCV MCH MCHC RDW Plt Count MPV Neut % (Auto) Lymph % (Auto) [place] % (Auto) Eos % (Auto) Baso % (Auto) Neut # (Auto) Lymph # (Auto) [place] # (Auto) Eos # (Auto) Baso # (Auto) PT INR Sodium Potassium Chloride Carbon Dioxide Anion Gap BUN Creatinine Estimated Creat Clear Estimated GFR Est GFR ( Amer) Glucose Calcium Phosphorus Magnesium Total Bilirubin AST ALT Alkaline Phosphatase Total Protein Albumin Globulin Albumin/Globulin Ratio Urine Collection Time 24 Urine Total Volume 850 Urine Creatinine Ur Creatinine 24 Hour Ur Total Protein 24 Hr Urine Total Protein DS: Diagnosis Discharge Diagnosis (1) Hypokalemia: Status: Acute Code(s): E87.6 - Hypokalemia (2) Hypomagnesemia: Status: Acute Code(s): E83.42 - Hypomagnesemia (3) : Status: Acute Code(s): Z34.90 - Encounter for supervision of normal , unspecified, unspecified trimester Qualifiers: Weeks of gestation: 28 weeks Qualified Code(s): Z3A.28 - 28 weeks gestation of (4) Secondary aldosteronism: Status: Acute Code(s): E26.1 - Secondary hyperaldosteronism Meds Home Medications and Allergies Home Medications ?Medication ?Instructions ?Recorded ?Confirmed ?Type omeprazole 20 mg capsule,delayed 20 mg PO DAILY 09/02/24 09/30/24 History release vit no.95-ferrous 1 tab PO DAILY 09/02/24 09/30/24 History fumarate 28 mg-folic acid 800 mcg tablet () thiamine HCl (vitamin B1) 100 mg 100 mg PO DAILY 09/02/24 09/30/24 History tablet ferrous sulfate 325 mg (65 mg 325 mg PO DAILY #30 tabs 09/12/24 09/30/24 Rx iron) tablet (Iron (ferrous sulfate)) metoprolol succinate 25 mg 12.5 mg PO DAILY 09/25/24 09/30/24 History tablet,extended release 24 hr potassium chloride 10 mEq 20 meq PO BID 09/25/24 09/30/24 History tablet,extended release(part/cryst) magnesium glycinate 100 mg (as 420 mg PO DAILY 09/30/24 09/30/24 History glycinate) tablet promethazine 12.5 mg tablet 12.5 mg PO TID PRN Nausea And 09/30/24 09/30/24 History Vomiting New Prescriptions to Start Prescriptions: Allergies Allergy/AdvReac Type Severity Reaction Status Date / Time peanut Allergy Severe Hives Verified 09/26/24 12:00 Discharge Plan Disposition Patient Disposition: Home, Self-Care Follow up Plan Follow up with: Nneka Stanley DO [Staff Physician, [employer]] - 10/08/24 10:00 am Claudia Hooper APRN [Nurse Practitioner, Gastroenterology] - 10/08/24 2:00 pm Prescriptions/Medication Reconciliation: Continued metoprolol succinate 25 mg tablet extended release 24 hr 12.5 mg PO DAILY potassium chloride 10 mEq tablet,ER particles/crystals 20 meq PO BID Patient Comments: Patient reports taking 2 10 meq twice daily omeprazole 20 mg Capsule,Delayed Release(Dr/Ec) 20 mg PO DAILY thiamine HCl (vitamin B1) 100 mg tablet 100 mg PO DAILY PNV no.95-ferrous fumarate-FA [] 28 mg iron- 800 mcg Tablet 1 tab PO DAILY ferrous sulfate [Iron (ferrous sulfate)] 325 mg (65 mg iron) Tablet 325 mg PO DAILY Qty: 30 3RF magnesium glycinate 100 mg Tablet 420 mg PO DAILY Patient Comments: Patient reports taking an OTC magnesium glycinate 420mg at HS promethazine 12.5 mg tablet 12.5 mg PO TID PRN (Reason: Nausea And Vomiting) Problem Reconciliation Problems Reviewed?: Yes Patient Discharge Instructions ACTIVITY: Continue current activity DIET: regular diet Additional Instructions: Please return to L&D on Monday for evaluation of electrolytes. We discussed coming in at 6am so we could replace and get you home the same day. Patient Instructions: Antepartum Care Print Language: British Providers Primary Care Provider: Norma Friedman Admit Provider: Josefina Justice Attending Provider: Josefina Justice
[2024-10-04] MEDS: MAGNESIUM OXIDE 400MG TABLET 800 MG PO (09:33)
[2024-10-04] MEDS: POTASSIUM CHLORIDE 20MEQ TAB 40 MEQ PO (09:33)
[2024-10-05 15:32] LABS: Deamidated Gliadin Abs, IgA 8 units (0-19); Deamidated Gliadin Abs, IgG 2 units (0-19)
[2024-10-08 15:28] LABS: Antinuclear Antibodies (ANA) Negative (Negative)
[2024-10-09 08:13] LABS: Reticulin IgA Antibody Negative titer (Neg:<1:2.5)
[2024-10-13 11:11] LABS: Potassium, Urine >100.0; Potassium, Urine 24 Hr >85
== END 2024-10-04 11:30 | disposition home or self-care (01) ==
LOC: OB 09:41
PROVIDERS: Nurse Practitioner Family; Nurse Practitioner Obstetrics & Gynecology; Obstetrics & Gynecology; Student in an Organized Health Care Education/Training Program; Admitting Provider Obstetrics & Gynecology; PCP Nurse Practitioner Family; Visit Provider Obstetrics & Gynecology
DX: O99.283 Endocrine, nutritional and metabolic diseases complicating pregnancy, third trimester (principal); O99.613 Diseases of the digestive system complicating pregnancy, third trimester; O26.893 Other specified pregnancy related conditions, third trimester; O99.343 Other mental disorders complicating pregnancy, third trimester; O12.13 Gestational proteinuria, third trimester; O34.43 Maternal care for other abnormalities of cervix, third trimester; O99.413 Diseases of the circulatory system complicating pregnancy, third trimester; O26.613 Liver and biliary tract disorders in pregnancy, third trimester; O21.9 Vomiting of pregnancy, unspecified; E87.6 Hypokalemia; E83.42 Hypomagnesemia; E26.1 Secondary hyperaldosteronism; K59.09 Other constipation; K21.9 Gastro-esophageal reflux disease without esophagitis; R74.01 Elevation of levels of liver transaminase levels; L29.9 Pruritus, unspecified; F43.10 Post-traumatic stress disorder, unspecified; I34.0 Nonrheumatic mitral (valve) insufficiency; R00.0 Tachycardia, unspecified; Z3A.31 31 weeks gestation of pregnancy; Z87.59 Personal history of other complications of pregnancy, childbirth and the puerperium; Z98.891 History of uterine scar from previous surgery; Z91.010 Allergy to peanuts; Z79.899 Other long term (current) drug therapy
CPT/HCPCS: 96365; 96366 ×5; 96367; 96375; 96376 ×5; 36415; 59025; 74181; 76700; 80048; 80053; 80074; 82024; 82088; 82103; 82104; 82164; 82239; 82570; 83735; 84100; 84132; 84133; 84144; 84155; 84484; 85025; 85610; 86015; 86038; 86225; 86231; 86235; 86256; 86258; 86364; 86381; 93005; 93976; 94761; G0378; J2405; J2550; J3475; J3480

== ENCOUNTER 2024-10-06 06:13 | Outpatient (CLI) | payer OTHER, SELFPAY ==
--- OUTSIDE RECORDS SUMMARY | 2024-08-19 10:15 | XMS_ITS | Encounter Summary ---
Author [facility] Address [address] [place] [address] Care Team Providers Care Claim Rep Name Role Phone Norma Friedman APRN Primary Care Provider + [phone] Reason for Visit * Reason Comments Routine Visit Encounter Details Date Type Department Care Team (Late st Contact Info) Description 08/19/2024 10:15 AM EDT Routine [facility] OBGYN [address] [place] [address] Jacey Mathews, ACCOUNTING MANAGER CONTROLLER [address] [place] [address] GA: 25w1d Social History Tobacco Use Types Packs/Day Years Used Date Smoking Tobacco: Never Smokeless Tobacco: Never Alcohol Use Standard Drinks/Week Comments Never 0 (1 standard drink = 0.6 oz pur e alcohol) [facility] Utilities Answer Date Recorded In the past 12 months has [employer], gas, oil, or water [employer] threatened to shut off services in [...] and heating? Not hard at all 05/28/2024 [facility] [place] of [facility] healthal Health - Occupational Stress [...] GED or equivalent No 05/28/2024 Preferred Language Occitan 05/28/2024 PHQ-2 Answer Date Recorded Patient Health [...] this encounter Progress Notes * Jacey Mathews, ACCOUNTING MANAGER CONTROLLER - 08/19/2024 10:15 AM EDT Images from [...] Description 01/20/2025 3:30 PM EST Office Visit [facility] GASTROENTEROLOGY [address] [facility] [address] [place] [address] Robbin Escalante MD [address] [facility] [address] [place] [address] documented as of this encounter Visit Diagnoses Diagnosis Vaginal bleeding in - Primary 25 weeks gestation of documented in this encounter Additional Health Concerns Assessment Noted Time PHQ-2 Depression Total Score: 2 05/28/19 25 4:39 PM EDT documented as of this encounter Care Teams Claim Rep Relationship Specialty Start Date End Date Norma Friedman APRN [address] [place] [address] [place] [address] PCP - General Family Medicine 05/14/24 documented as of this encounter
--- OUTSIDE RECORDS SUMMARY | 2024-08-19 13:59 | XMS_ITS | Encounter Summary ---
[facility] [address] [place] [id number] Care Team Providers Care Epic Ambulatory Analyst Name Role Phone Ivyashlyn Norma FERNÁNDEZ Primary Care Provider + [phone] Reason for Visit * Reason Comments Vaginal Bleeding * Auth/Cert (Routine) Specialty Diagnoses / Procedures Referred By Contleyla t Referred To Contact Referral ID Status Reason Start Date Expiration Date Visits Re quested Visits Authorized [id number] 1 1 Encounter Details Date Type Department Care Team (Late st Contact Info) Description 08/19/2024 1:59 PM EDT - 08/20/2024 4:28 PM EDT Hospital Encounter [facility] [address] [place] [phone] Rob Wharton MD [address] [facility] [address] [place] [address] Blu Alvarado MD [address] [facility] [address] [place] [address] Dysphagia, unspecified type (Primary Dx) Discharge Disposition: Home or Self Care Social History Tobacco Use Types Packs/Day Years Used Date Smoking Tobacco: Never Smokeless Tobacco: Never Alcohol Use Standard Drinks/Week Comments Never 0 (1 standard drink = 0.6 oz pur e alcohol) [facility] Utilities Answer Date Recorded In the past 12 months has [employer], gas, oil, or water [employer] threatened to shut off services in [...] and heating? Not hard at all 05/28/2024 [facility] [place] of Occupat ional Health - Occupational Stress [...] GED or equivalent No 05/28/2024 Preferred Language Bruneian 05/28/2024 PHQ-2 Answer Date Recorded Patient Health [...] 1:23 PM EDT Polly Lacey RN * [place] Suicide Severity Rating Scale (Screener/Recent Self-Report) Question [...] Labs beginning of week and f/u with mt Seng Test Results Pending at Discharge Pending Labs Order Current Status Tissue Pathology Exam In process Rob Wharton MD 08/20/24 15:36 EDT Time: Discharge <30 min documented in this encounter Discharge Instructions * Attachments The following attachments cannot be sent through Care Everywhere. * Second Trimester of (Bruneian) * Upper Endoscopy Adult Care After (Bruneian) documented in this encounter Medications at Time [...] 08/19/2024 RH Positive 08/19/2024 ABSCRN Negative 08/19/2024 [id number] non-reactive 04/12/2024 HEPCVIRUSABY negative 04/12/2024 URINECX Final [...] IUPC: Resting Tone: Resting Tone by IUPC: [place] Units: Cervix: Exam by: Method: sterile vaginal [...] from the original note were not included. [facility] Obstetric History and Physical Referring Provider: [...] her third trimesters prior pregnancies(etiology unknown). 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 She states has never had [...] IUPC: Resting Tone: Resting Tone by IUPC: [place] Units: Laboratory Results: Lab Results (last 24 [...] AM EDTAssociated Order(s): IP CONSULT TO GASTROENTEROLOGY [facility] Gastroenterology Consult Referring Provider: Dr. Fan/Dr. [...] expresses concern regarding recent CT scan at [facility] revealing a hiatal hernia. CT scan done prior to most recent due to ovarian cyst and incidentally revealed hiatal hernia. She reports chronic gastrointestinal symptoms. Review of medical record revealed prior GI referral due to blood per rectum. She reports colonoscopy in 2020 at outside facility that revealed diverticulosis and benign colon polyp. She is currently established with provider at [facility] for gastroenterology care she reports [...] , await recommendations following EGD - consider VIDEO GAME CREATOR evaluation if no etiology for difficulty swallowing [...] from the original note were not included. [facility] Obstetric History and Physical Referring Provider: [...] her third trimesters prior pregnancies(etiology unknown). 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 She states has never had [...] IUPC: Resting Tone: Resting Tone by IUPC: [place] Units: Laboratory Results: Lab Results (last 24 [...] Office Visit [facility] [address] [phone] Robbin Escalante MD [address] [address] documented as of this encounter Procedures Procedure Name Priority Date/Time Associated Diagnosis Comments TISSUE PATHOLOGY EXAM Routine 08/20/2024 1:55 PM EDT Dysphagia, unspecified type MD ESOPHAGOGASTRODUODENOSCOP Y TRANSORAL DIAGNOSTIC 08/20/2024 1:44 PM EDT Dysphagia, unspecified type UPPER GI ENDOSCOPY 08/20/2024 1:09 PM EDT BASIC METABOLIC PANEL STAT 08/20/2024 5:25 AM EDT POTASSIUM STAT 08/19/2024 8:53 PM EDT ABORH 2ND SPECIMEN VERIFICATION STAT 08/19/2024 4:34 PM EDT NONSTRESS TEST Routine 08/19/2024 4:17 PM EDT [facility] Routine 08/19/2024 3:25 [...] EDT) Case Report Surgical Pathology Report Case: [id number] Authorizing Provider: Blu Alvarado MD Collected: 08/20/2024 [...] Final Result [facility]
[address] [place] [address], * Upper GI Endoscopy (08/20/2024 1:09 PM [...] 5:25 AM EDT 08/20/2024 5:46 AM EDT [facility] - 08/20/2024 6:13 AM EDT [...] ORDERABLES Final Resu lt Performing Organization Address City/[facility]/ZIP Co de Phone Number [facility]
[address] [place] [address], * (ABNORMAL) Potassium (08/19/2024 8:53 PM EDT) Potassium 2.7(L) 3.5 - 5.2 mmol/L 08/19/2024 9:20 PM EDT [facility] Blood Venipuncture / Unknown 08/19/2024 8:53 PM EDT 08/19/2024 9:04 PM EDT Kt Fan DO LAB BLOOD ORDERABLES Final Result Performing Organization Address [facility] Co de Phone Number [facility]
[address] [place] [address], * ABO RH Specimen Verification (08/19/2024 4:34 PM EDT) ABO Type O 08/19/2024 7:39 PM EDT [facility] RH type Positive 08/19/2024 7:39 PM EDT [facility] Blood Venipuncture / Unknown 08/19/2024 4:34 PM EDT 08/19/2024 4:53 PM EDT Rob Wharton MD BLOOD BANK TEST ORDER FARNCO Final Result Performing Organization Address City/[facility]/ZIP Co de Phone Number [facility]
[address] [place] [address], * [facility] (08/19/2024 3:25 PM EDT) Anatomical Region Laterality Modality Ultrasound 08/19/2024 3:09 PM EDT Narrative 08/19/2024 4:54 PM EDT PAT NAME: CAROLE GIRARD MED REC#: [id number] DA: 1990 PAT GEND: F PAT TYPE: E EXAM TRAVIS: [id number] REF PHYS ROB WHARTON Comparison Studies The [...] EFW (oz) 9 oz EFW by: Hadlock (IKB-IU-PN-FL) Extended Cav. septi pel. tr 4.7 mm Education Administrative Assistant 3.8 mm CM 7.5 mm 84% Nicolaides [...] Heart / Thorax 3-vessel view: Appears normal 1-efhhst-qobgkja view: Appears normal Stomach: Appears normal Kidneys: [...] in 4wks for growth. Coding ======= Description: 98470-05 Follow Up Glue Mixer: RT Annetta Hartmann , [facility] Physician: Jo Chappell MD Electronically signed by: Jo Chappell MD at: 16:54 Procedure Note Jo Chappell MD - 08/19/2024 PAT NAME: CAROLE GIRARD MED REC#: [id number] DA: 1990 PAT GEND: F PAT TYPE: E EXAM TRAVIS: [id number] REF PHYS ROB WHARTON Comparison Studies The findings of this study are compared to the prior ultrasound studydated 07/22/24 Patient Status Inpatient Indication ======== History of c/s x1. History of . Vaginal bleeding. Maternal Assessment Eptula990 cm Height (ft)5 ft Height (in)4 in Skuhrr70 kg Weight (lb)158 lb BMI27.31 kg/m Method ======= Transabdominal ultrasound examination. View: Limited by patient bodyhabitus ========= Love . Number of fetuses: 1 Dating ====== Method of dating:based on stated DUSTY GA by prior [id number] w + 1 d DUSTY by prior assessment:12/01/2024 Ultrasound examination on:08/19/2024 GA by U/S based upon:AC, BPD, Femur, HC GA by U/S24 w + 2 d DUSTY by U/S:12/07/2024 Previous dating:based on stated DUSTY, selected on 07/22/2024 Agreed DUSTY of previous datin12/01/2024 Assigned:based on stated DUSTY, selected on 08/19/2024 Assigned GA25 w + 1 d Assigned DUSTY:12/01/2024 [id number] d Biometry Standard BPD57.6 mm 23w 4d 5% Hadlock OFD81.6 mm 26w 4d 88% Jamal HC225.7 mm 24w 4d 13% Hadlock Cerebellum tr28.9 mm 25w 2d 62% Hill AC194.9 mm 24w 1d 15% Hadlock Femur44.9 mm 24w 6d 27% Hadlock Dezxodo31.3 mm 25w 3d 50% Jamal HC / AC1.16 AIW476 g 24w 2d 16% Hadlock EFW (lb)1 lb EFW (oz)9 oz EFW by:Hadlock (ARH-QO-QA-FL) Extended Cav. septi pel. tr4.7 mm Vp3.8 mm CM7.5 mm 84% Nicolaides Head / Face / Neck Cephalic index0.71 <1% Nicolaides Extremities / Bony Struc FL / BPD0.78 FL / HC0.20 FL / AC0.23 Other Structures [id number] bpm General Evaluation Cardiac activity present. FHR [...] normal Heart / Thorax 3-vessel view:Appears normal 0-nyxsuq-jekuurp view:Appears normal Stomach:Appears normal Kidneys:Appears normal Bladder:Appears normal Gender:female Wants to know gender:yes Maternal Structures Uterus / Cervix Cervix:Visualized Approach:Transabdominal Cervical sagddk70.9 mm Doppler Arterial Umbilical A PI1.01 32% [...] office in 4wks for growth. Coding ======= Description:03129-13 Follow Up Glue Mixer: RT Annetta Hartmann , RDMS Physician: Jo Chappell MD Electronically signed by: oJ Chappell MD at: 16:54 us Kt Fan DO G US ORDERABLES Final Res ult * Protein / Creatinine Ratio, Urine - Urine, Clean Catch (08/19/2024 3:02 PM EDT) Protein/Creati nine Ratio, Urine 126.1 0.0 - 200.0 mg/G Crea 08/20/2024 12:47 AM EDT [facility] Creatinine, Urine 148.3 mg/dL 08/20/2024 12:47 AM EDT [facility] Total Protein, Urine 18.7 mg/dL 08/20/2024 12:47 AM EDT [facility] Urine Urine specimen obtained by clean catch procedure / Unknown Collection / Unknown 08/19/2024 3:02 PM EDT 08/19/2024 4:26 PM EDT Kt Fan URINE ORDERABLES Final Resu lt [facility]
[address] [place] [address], [place] [phone] * (ABNORMAL) Magnesium (08/19/2024 3:02 PM EDT) Magnesium 1.5(L) 1.6 - 2.6 mg/dL 08/19/2024 5:12 PM EDT [facility] Blood Line / Unknown 08/19/2024 3: 02 PM EDT 08/19/2024 3:10 PM EDT Kt Fan DO LAB BLOOD ORDERABLES Final Result [facility]
[address] [place] [address], [place] [phone] * Urinalysis, Microscopic Only - Urine, Clean [...] Resu lt [facility]
[address] [place] [address], * (ABNORMAL) CBC Auto Differential (08/19/2024 3:02 [...] 19.6 - 45.3 % [facility] Monocyte % 7.6 5.0 - 12.0 % 08/19/2024 3:[facility] Eosinophil % 0.7 0.3 - 6.2 % 08/19/2024 3:[facility] Basophil % 0.2 0.0 - 1.5 % 08/19/2024 3:[facility] Immature Grans % 0.3 0.0 - 0.5 % 08/19/2024 3:[facility] Neutrophils, Absolute 6.14 1.70 - 7.00 10*3/mm3 08/19/2024 3:[facility] Lymphocytes, Absolute 2.24 0.70 - 3.10 10*3/mm3 08/19/2024 3:23 PM EDT [facility] Monocytes, Absolute 0.70 0.10 - 0.90 10*3/mm3 08/19/2024 3:23 PM EDT [facility] Eosinophils, Absolute 0.06 0.00 - 0.40 10*3/mm3 08/19/2024 3:[facility] Basophils, Absolute 0.02 0.00 - 0.20 [...] Result [facility]
[address] [place] [address], * (ABNORMAL) Urinalysis With Microscopic If Indicated (No Culture) - Urine, Clean Catch (08/19/2024 3:02 PM EDT) Color, UA Yellow Yellow, Straw 08/19/2024 3:33 PM EDT [facility] Appearance, UA Clear Clear 08/19/2024 3:33 PM EDT [facility] pH, UA >=9.0(H) 5.0 - 8.0 08/19/2024 3:33 PM EDT [facility] Specific [place], UA 1.018 1.005 - 1.030 08/19/2024 3:33 [...] ORDERABLES Final Resu lt Performing Organization Address City/[facility]/ZIP Co de Phone Number [facility]
[address] [place] [address], [place] [phone] * Amylase (08/19/2024 3:02 PM EDT) Amylase 73 28 - 100 U/L 08/19/2024 3:36 PM EDT [facility] Blood Line / Unknown 08/19/2024 3: 02 PM EDT 08/19/2024 3:10 PM EDT us Kt Fan DO LAB BLOOD ORDERABLES Final Result Performing Organization Address [facility] Co de Phone Number [facility]
[address] [place] [address], [place] [phone] * Lipase (08/19/2024 3:02 PM EDT) Lipase 13 13 - 60 U/L 08/19/2024 3:36 PM EDT [facility] Blood Line / Unknown 08/19/2024 3: 02 PM EDT 08/19/2024 3:10 PM EDT us Kt Fan DO LAB BLOOD ORDERABLES Final Result Performing Organization Address City/[facility]/ZIP Co de Phone Number [facility]
[address] [place] [address], * (ABNORMAL) Comprehensive Metabolic Panel (08/19/2024 3:02 PM EDT) [facility] Glucose 75 65 - 99 mg/dL 08/19/2024 [...] Result [facility]
[address] [place] [address], * Type & Screen (08/19/2024 3:02 PM [...] [facility]
[address] [place] [address], documented in this encounter Visit Diagnoses Diagnosis [...] 1 dose 1342 (Given - Provider: Polly Carbera RN - Comment: prior to procedure) sodium [...] documented as of this encounter Care Teams Epic Ambulatory Analyst Relationship Specialty Start Date End Date Norma Friedman APRN [address] [place] G3 RAFAELA APPIAH [address] PCP - General Family Medicine 05/14/24 documented as of this encounter
--- OUTSIDE RECORDS SUMMARY | 2024-08-20 13:33 | XMS_ITS | Encounter Summary ---
[facility] Address [address] [place] [address] Care Team Providers Care Political Aide Name Role Phone Norma Friedman APRN Primary Care Provider + [phone] Reason for Visit * Reason Comments Vaginal Bleeding * Auth/Cert (Routine) Specialty Diagnoses / Procedures Referred By Tarik t Referred To Contact Referral ID Status Reason Start Date Expiration Date Visits Re quested Visits Authorized [id number] 1 1 Encounter Details Date Type Department Care Team (Late st Contact Info) Description 08/20/2024 1:33 PM EDT - 08/20/2024 2:05 PM EDT Surgery [facility] ENDO SUITES [address] [place] [address] Blu Alvarado MD [address] [facility] [address] [place] [address] ESOPHAGOGASTRODUODENOSCOPY [47623 (CPT )] Social History Tobacco Use Types [...] and heating? Not hard at all 05/28/2024 [facility] - Occupational Stress Questionnaire Answer Date [...] 1:23 PM EDT Polly Lacey RN * Harlan Suicide Severity Rating Scale (Screener/Recent Self-Report) Question [...] [facility] Results Pending at Discharge Pending Labs Order Current Status Tissue Pathology Exam In process Rob Wharton MD 08/20/24 15:36 EDT Time: Discharge <30 min documented in this encounter Discharge Instructions * Attachments The following attachments cannot be sent through Care Everywhere. * Second Trimester of (Vincentian) * Upper Endoscopy Adult Care After (Vincentian) documented in this encounter Medications at Time [...] 08/19/2024 RH Positive 08/19/2024 ABSCRN Negative 08/19/2024 [id number] non-reactive 04/12/2024 HEPCVIRUSABY negative 04/12/2024 URINECX Final [...] IUPC: Resting Tone: Resting Tone by IUPC: [place] Units: Cervix: Exam by: Method: sterile vaginal [...] from the original note were not included. [facility] Obstetric History and Physical Referring Provider: [...] her third trimesters prior pregnancies(etiology unknown). 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 She states has never had [...] IUPC: Resting Tone: Resting Tone by IUPC: [place] Units: Laboratory Results: Lab Results (last 24 [...] AM EDTAssociated Order(s): IP CONSULT TO GASTROENTEROLOGY [facility] Gastroenterology Consult Referring Provider: Dr. Fan/Dr. Wharton [...] expresses concern regarding recent CT scan at [facility] revealing a hiatal hernia. CT scan done prior to most recent due to ovarian cyst and incidentally revealed hiatal hernia. She reports chronic gastrointestinal symptoms. Review of medical record revealed prior GI referral due to blood per rectum. She reports colonoscopy in 2020 at outside facility that revealed diverticulosis and benign colon polyp. She is currently established with provider at [facility] for gastroenterology care she reports repeat [...] , await recommendations following EGD - consider [employer]INE [employer]EDER evaluation if no etiology for difficulty swallowing [...] from the original note were not included. [facility] Obstetric History and Physical Referring Provider: [...] her third trimesters prior pregnancies(etiology unknown). 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 She states has never had [...] IUPC: Resting Tone: Resting Tone by IUPC: [place] Units: Laboratory Results: Lab Results (last 24 [...] PM EST Office Visit [facility] GASTROENTEROLOGY [address] [phone] Robbin Escalante MD [address] [address] documented as of this encounter Procedures Procedure Name Priority Date/Time Associated Diagnosis Comments TISSUE PATHOLOGY EXAM Routine 08/20/2024 1:55 PM EDT Dysphagia, unspecified type LA ESOPHAGOGASTRODUODENOSCOP Y TRANSORAL DIAGNOSTIC 08/20/2024 1:44 PM EDT Dysphagia, unspecified type UPPER GI ENDOSCOPY 08/20/2024 1:09 PM EDT BASIC METABOLIC PANEL STAT 08/20/2024 5:25 AM EDT POTASSIUM STAT 08/19/2024 8:53 PM EDT ABORH 2ND SPECIMEN VERIFICATION STAT 08/19/2024 4:34 PM EDT NONSTRESS TEST Routine 08/19/2024 4:[address] [facility] Routine 08/19/2024 3:25 PM EDT [...] EDT) Case Report Surgical Pathology Report Case: [id number] Authorizing Provider: Blu Alvarado MD Collected: 08/20/2024 01:55 PM Ordering Location: [facility] Received: 08/20/2024 02:14 PM ENDO SUITES Pathologist: Khalida Rhoades DO Specimen: Gastric, Antrum, antrum bx for path 08/22/2024 9:18 AM EDT [facility] Clinical Information Dysphagia, unspecified type 08/22/2024 9:18 AM EDT [facility] Final Diagnosis Stomach, antrum, biopsy: 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 pylori is negative (no organisms are identified) Negative for intestinal metaplasia, dysplasia, or malignancy 08/22/2024 9:18 AM EDT [facility] at 0918 EDT Gross Description 1. Gastric, Antrum. Received in formalin labeled antrum biopsy is a 0.4 x 0.2 x 0.2 cm pink-see soft tissue fragment submitted entirely in a single cassette. HDM 08/22/2024 9:18 AM EDT [facility] Microscopic Description The slides are reviewed and demonstrate histopathologic features supporting the above rendered diagnosis. 08/22/2024 9:18 AM EDT [facility] Tissue Pyloric antrum structure / Unknown 08/20/2024 1:55 PM EDT 08/20/2024 2:14 PM EDT us Blu Alvarado MD PATHOLOGY/CYTOLOGY ORDERABLES Final Result [facility]
[address] [place] [address], * Upper GI Endoscopy (08/20/2024 1:09 PM EDT) us Blu Alvarado MD INTERFACE NEEDS Final Result * (ABNORMAL) Basic Metabolic Panel (08/20/2024 5:25 AM EDT) Glucose 84 65 - 99 mg/dL 08/20/2024 6:13 AM EDT [facility] BUN 2.3(L) 6.0 - 20.0 mg/dL 08/20/2024 6:13 AM T [facility] Creatinine 0.51(L) 0.57 - 1.00 mg/dL 08/20/2024 6:13 AM [facility] Sodium 139 136 - 145 mmol/L 08/20/2024 6:13 AM EDT [facility] Potassium 3.5 3.5 - 5.2 mmol/L 08/20/2024 6:13 AM EDT [facility] Chloride 109(H) 98 - 107 mmol/L 08/20/2024 6:13 AM [facility] CO2 23.5 22.0 - 29.0 mmol/L 08/20/2024 6:13 AM [facility] Calcium 7.8(L) 8.6 - 10.5 mg/dL 08/20/2024 6:13 AM [facility] BUN/Creatinine Ratio 4.5(L) 7.0 - 25.0 08/20/2024 6:13 AM [facility] Anion Gap 6.5 5.0 - 15.0 mmol/L 08/20/2024 6:13 AM [facility] eGFR 126.6 >60.0 mL/min/1.7 3 08/20/2024 6:13 AM [facility] Blood Venipuncture / Unknown 08/20/2024 5:25 AM EDT 08/20/2024 5:46 AM T [facility] LAB[facility] - 08/20/2024 6:13 AM EDT [...] Final Resu lt Performing Organization Address City/[facility]/ZIP Co de Phone Number [facility]
[address] [place] [address], * (ABNORMAL) Potassium (08/19/2024 8:53 PM EDT) Potassium 2.7(L) 3.5 - 5.2 mmol/L 08/19/2024 9:20 PM EDT [facility] Blood Venipuncture / Unknown 08/19/2024 8:53 PM EDT 08/19/2024 9:04 PM EDT Kt Fan DO LAB BLOOD ORDERABLES Final Result Performing Organization Address [facility] Co de Phone Number [facility]
[address] [place] [address], * ABO RH Specimen Verification (08/19/2024 4:34 PM EDT) ABO Type O 08/19/2024 7:39 PM EDT [facility] RH type Positive 08/19/2024 7:39 PM EDT [facility] Blood Venipuncture / Unknown 08/19/2024 4:34 PM EDT 08/19/2024 4:53 PM EDT Rob Wharton MD BLOOD BANK TEST ORDER FRANCO Final Result Performing Organization Address City/[facility]/ZIP Co de Phone Number [facility] LABORATORY
[address] [place] [address], * [facility] (08/19/2024 3:25 PM EDT) Anatomical Region Laterality Modality Ultrasound 08/19/2024 3:09 PM EDT Narrative 08/19/2024 4:54 PM EDT PAT NAME: CAROLE GIRARD MED REC#: [id number] DA: 1990 PAT GEND: F PAT TYPE: E EXAM TRAVIS: [id number] REF PHYS ROB WHARTON Comparison Studies The [...] EFW (oz) 9 oz EFW by: Hadlock ([id number]-[id number]-FL) Extended Cav. septi pel. tr 4.7 mm Manager Metrology 3.8 mm CM 7.5 mm 84% Nicolaides [...] Heart / Thorax 3-vessel view: Appears normal 5-djrmfq-kgrukdy view: Appears normal Stomach: Appears normal Kidneys: [...] in 4wks for growth. Coding ======= Description: [id number] Follow Up Heavy Repairer: Alison Verduzco RT R , [place] Physician: Jo Chappell MD Electronically signed by: Jo Chappell MD at: 16:54 Procedure Note Jo Chappell MD - 08/19/2024 PAT NAME: CAROLE GIRARD MED REC#: [id number] DA: [id number] PAT GEND: F PAT TYPE: E EXAM TRAVIS: [id number] REF PHYS ROB WHARTON Comparison Studies The findings of this study are compared to the prior ultrasound studydated 07/22/24 Patient Status Inpatient Indication ======== History of c/s x1. History of . Vaginal bleeding. Maternal Assessment Sigojq999 cm Height (ft)5 ft Height (in)4 in Bqytud20 kg Weight (lb)158 lb BMI27.31 kg/m Method ======= Transabdominal ultrasound examination. View: Limited by patient bodyhabitus ========= Love . Number of fetuses: 1 Dating ====== Method of dating:based on stated DUSTY GA by prior [id number] w + 1 d DUSTY by prior assessment:12/01/2024 Ultrasound examination on:08/19/2024 GA by U/S based upon:AC, BPD, Femur, HC GA by U/S24 w + 2 d DUSTY by U/S:12/07/2024 Previous dating:based on stated DUSTY, selected on 07/22/2024 Agreed DUSTY of previous datin12/01/2024 Assigned:based on stated DUSTY, selected on 08/19/2024 Assigned GA25 w + 1 d Assigned DUSTY:12/01/2024 [id number] d Biometry Standard BPD57.6 mm 23w 4d 5% Hadlock OFD81.6 mm 26w 4d 88% Jamal HC225.7 mm 24w 4d 13% Hadlock Cerebellum tr28.9 mm 25w 2d 62% Hill AC194.9 mm 24w 1d 15% Hadlock Femur44.9 mm 24w 6d 27% Hadlock Tuwmrgc48.3 mm 25w 3d 50% Jamal HC / AC1.16 DVJ438 g 24w 2d 16% Hadlock EFW (lb)1 lb EFW (oz)9 oz EFW by:Hadlock ([id number]) Extended Cav. septi pel. tr4.7 mm Vp3.8 mm CM7.5 mm 84% Nicolaides Head / Face / Neck Cephalic index0.71 <1% Nicolaides Extremities / Bony Struc FL / BPD0.78 FL / HC0.20 FL / AC0.23 Other Structures [id number] bpm General Evaluation Cardiac activity present. FHR [...] normal Heart / Thorax 3-vessel view:Appears normal 5-drnlzf-bhihcqs view:Appears normal Stomach:Appears normal Kidneys:Appears normal Bladder:Appears normal Gender:female Wants to know gender:yes Maternal Structures Uterus / Cervix Cervix:Visualized Approach:Transabdominal Cervical nqzqxu84.9 mm Doppler Arterial Umbilical A PI1.01 32% [...] office in 4wks for growth. Coding ======= Description:[id number] Follow Up Heavy Repairer: RT Annetta Hartmann , [facility] Physician: Jo Chappell MD Electronically signed by: Jo Chappell MD at: 16:54 us Kt Fan DO [facility] [place] ORDERABLES Final Res ult * Protein / Creatinine Ratio, Urine - Urine, Clean Catch (08/19/2024 3:02 PM EDT) Protein/Creati nine Ratio, Urine 126.1 0.0 - 200.0 mg/G Crea 08/20/2024 12:47 AM EDT [facility] Creatinine, Urine 148.3 mg/dL 08/20/2024 12:47 AM EDT [facility] Total Protein, Urine 18.7 mg/dL 08/20/2024 12:47 AM EDT [facility] Urine Urine specimen obtained by clean catch procedure / Unknown Collection / Unknown 08/19/2024 3:02 PM EDT 08/19/2024 4:26 PM EDT Kt Fan DO URINE ORDERABLES Final Resu lt [facility]
[address] [place] [address], [place] [phone] * (ABNORMAL) Magnesium (08/19/2024 3:02 PM EDT) Magnesium 1.5(L) 1.6 - 2.6 mg/dL 08/19/2024 5:12 PM EDT [facility] Blood Line / Unknown 08/19/2024 3: 02 PM EDT 08/19/2024 3:10 PM EDT Kt Fan DO LAB BLOOD ORDERABLES Final Result Performing Organization Address City/[facility]/ZIP Co de Phone Number [facility]
[address] [place] [address], [place] [phone] * Urinalysis, Microscopic Only - Urine, Clean Catch (08/19/2024 3:02 PM EDT) RBC, UA 0-2 None Seen, 0-2 /HPF 08/19/2024 3:33 PM EDT [facility] WBC, UA 0-2 None Seen, 0-2 /HPF 08/19/2024 3:33 PM EDT [facility] Bacteria, UA None Seen None Seen /HPF 08/19/2024 3:33 PM EDT [facility] Squamous Epithelial Cells, UA 0-2 None Seen, 0-2 /HPF 08/19/2024 3:33 PM EDT [facility] Hyaline Casts, UA None Seen None Seen /LPF 08/19/2024 3:33 PM EDT [facility] Methodology Automated Microscopy 08/19/2024 3:33 PM EDT [facility] Urine Urine specimen obtained by clean catch procedure / Unknown Collection / Unknown 08/19/2024 3:02 PM EDT 08/19/2024 3:13 PM EDT Kt Fan DO URINE ORDERABLES Final Resu lt [facility]
[address] [place] [address], * (ABNORMAL) CBC Auto Differential (08/19/2024 3:02 PM EDT) WBC 9.19 3.40 - 10.80 10*3/mm3 08/19/2024 3:23 PM EDT [facility] RBC 3.58(L) 3.77 - 5.28 10*6/mm3 08/19/2024 3:23 PM EDT [facility] Hemoglobin 10.5(L) 12.0 - 15.9 g/dL 08/19/2024 3:23 PM EDT [facility] Hematocrit 31.4(L) 34.0 - 46.6 % 08/19/2024 3:23 PM EDT [facility] MCV 87.7 79.0 - 97.0 fL 08/19/2024 3:23 PM EDT [facility] MCH 29.3 26.6 - 33.0 pg 08/19/2024 3:23 PM EDT [facility] MCHC 33.4 31.5 - 35.7 g/dL 08/19/2024 3:23 PM EDT [facility] RDW 13.4 12.3 - 15.4 % 08/19/2024 3:23 PM EDT [facility] RDW-SD 42.4 37.0 - 54.0 fl 08/19/2024 3:23 PM EDT [facility] MPV 12.0 6.0 - 12.0 fL 08/19/2024 3:23 PM EDT [facility] Platelets 241 140 - 450 10*3/mm3 08/19/2024 3:23 PM EDT [facility] Neutrophil % 66.8 42.7 - 76.0 % 08/19/2024 3:23 PM EDT [facility] Lymphocyte % 24.4 19.6 - 45.3 % 08/19/2024 3:23 PM EDT [facility] Monocyte % 7.6 5.0 - 12.0 % 08/19/2024 3:23 PM EDT [facility] Eosinophil % 0.7 0.3 - 6.2 % 08/19/2024 3:23 PM EDT [facility] Basophil % 0.2 0.0 - 1.5 % 08/19/2024 3:23 PM EDT [facility] Immature Grans % 0.3 0.0 - 0.5 % 08/19/2024 3:23 PM EDT [facility] Neutrophils, Absolute 6.14 1.70 - 7.00 10*3/mm3 08/19/2024 3:23 PM EDT [facility] Lymphocytes, Absolute 2.24 0.70 - 3.10 10*3/mm3 08/19/2024 3:23 PM EDT [facility] Monocytes, Absolute 0.70 0.10 - 0.90 10*3/mm3 08/19/2024 3:23 PM EDT [facility] Eosinophils, Absolute 0.06 0.00 - 0.40 10*3/mm3 08/19/2024 3:23 PM EDT [facility] Basophils, Absolute 0.02 0.00 - 0.20 10*3/mm3 08/19/2024 3:23 PM EDT [facility] Immature Grans, Absolute 0.03 0.00 - 0.05 10*3/mm3 08/19/2024 3:23 PM EDT [facility] nRBC 0.0 0.0 - 0.2 /100 WBC 08/19/2024 3:23 PM EDT [facility] Blood Line / Unknown 08/19/2024 3: 02 PM EDT 08/19/2024 3:10 PM EDT Kt Fan DO LAB BLOOD ORDERABLES Final Result [facility]
[address] [place] [address], * (ABNORMAL) Urinalysis With Microscopic If Indicated (No Culture) - Urine, Clean Catch (08/19/2024 3:02 PM EDT) Color, UA Yellow Yellow, Straw 08/19/2024 3:33 PM EDT [facility] Appearance, UA Clear Clear 08/19/2024 3:33 PM EDT [facility] pH, UA >=9.0(H) 5.0 - 8.0 08/19/2024 3:33 PM EDT [facility] Specific [place], UA 1.018 1.005 - 1.030 08/19/2024 3:33 PM EDT [facility] Glucose, UA Negative Negative 08/19/2024 3:33 PM EDT [facility] Ketones, UA 15 mg/dL (1+)(A) Negative 08/19/2024 3:33 PM EDT [facility] Bilirubin, UA Negative Negative 08/19/2024 3:33 PM EDT [facility] Blood, UA Negative Negative 08/19/2024 3:33 PM EDT [facility] Protein, UA 30 mg/dL (1+)(A) Negative 08/19/2024 3:33 PM EDT [facility] Leuk Esterase, UA Negative Negative 08/19/2024 3:33 PM EDT [facility] Nitrite, UA Negative Negative 08/19/2024 3:33 PM EDT [facility] Urobilinogen, UA 1.0 E.U./dL 0.2 - 1.0 E.U./dL 08/19/2024 3:33 PM EDT [facility] Urine Urine specimen obtained by clean catch procedure / Unknown Collection / Unknown 08/19/2024 3:02 PM EDT 08/19/2024 3:13 PM EDT us Kt Fan DO URINE ORDERABLES Final Resu lt [facility]
[address] [place] [address], [place] [phone] * Amylase (08/19/2024 3:02 PM EDT) Amylase 73 28 - 100 U/L 08/19/2024 3:36 PM EDT [facility] Blood Line / Unknown 08/19/2024 3: 02 PM EDT 08/19/2024 3:10 PM EDT us Kt Fan DO LAB BLOOD ORDERABLES Final Result Performing Organization Address [facility] Co de Phone Number [facility]
[address] [place] [address], [place] [phone] * Lipase (08/19/2024 3:02 PM EDT) Lipase 13 13 - 60 U/L 08/19/2024 3:36 PM EDT [facility] Blood Line / Unknown 08/19/2024 3: 02 PM EDT 08/19/2024 3:10 PM EDT us Kt Fan DO LAB BLOOD ORDERABLES Final Result Performing Organization Address City/[facility]/ZIP Co de Phone Number [facility]
[address] [place] [address], [place] [phone] * (ABNORMAL) Comprehensive Metabolic Panel (08/19/2024 3:02 PM EDT) Glucose 75 65 - 99 mg/dL 08/19/2024 3:38 PM EDT [facility] BUN 3.6(L) 6.0 - 20.0 mg/dL 08/19/2024 3:38 PM T [facility] Creatinine 0.51(L) 0.57 - 1.00 mg/dL 08/19/2024 3:38 PM EDT [facility] Sodium 137 136 - 145 mmol/L 08/19/2024 3:38 PM T [facility] Potassium 2.6(LL) 3.5 - 5.2 mmol/L 08/19/2024 3:38 PM [facility] Comment:Specimen hemolyzed. Result may be falsely elevated. Chloride 99 98 - 107 mmol/L 08/19/2024 3:38 PM [facility] CO2 24.2 22.0 - 29.0 mmol/L 08/19/2024 3:38 PM T [facility] Calcium 8.8 8.6 - 10.5 mg/dL 08/19/2024 3:38 PM T [facility] Total Protein 6.6 6.0 - 8.5 g/dL 08/19/2024 3:38 PM [facility] Albumin 3.4(L) 3.5 - 5.2 g/dL 08/19/2024 3:38 PM [facility] ALT (SGPT) 10 1 - 33 U/L 08/19/2024 3:38 PM T [facility] AST (SGOT) 22 1 - 32 U/L 08/19/2024 3:38 PM T [facility] Alkaline Phosphatase 64 39 - 117 U/L 08/19/2024 3:38 PM [facility] Total Bilirubin 0.5 0.0 - 1.2 mg/dL 08/19/2024 3:38 PM T [facility] Globulin 3.2 gm/dL 08/19/2024 3:38 PM T [facility] Comment:Calculated Result A/G Ratio 1.1 g/dL 08/19/2024 3:38 PM EDT [facility] BUN/Creatinine Ratio 7.1 7.0 - 25.0 08/19/2024 3:38 PM EDT [facility] Anion Gap 13.8 5.0 - 15.0 mmol/L 08/19/2024 3:38 PM EDT [facility] eGFR 126.6 >60.0 mL/min/1.7 3 08/19/2024 3:38 PM EDT [facility] Blood Line / Unknown 08/19/2024 3: 02 PM EDT 08/19/2024 3:10 PM EDT [facility] - 08/19/2024 3:38 PM EDT [...] Fan DO LAB BLOOD ORDERABLES Final Result [facility]
[address] [place] [address], * Type & Screen (08/19/2024 3:02 PM EDT) ABO Type O 08/19/2024 3:51 PM EDT [facility] RH type Positive 08/19/2024 3:51 PM EDT [facility] Antibody Screen Negative 08/19/2024 3:51 PM EDT [facility] T&S Expiration Date 08/22/2024 11:59:59 PM 08/19/2024 3:51 PM EDT [facility] Blood Line / Unknown 08/19/2024 3: 02 PM EDT 08/19/2024 3:15 PM EDT Kt Fan DO BLOOD BANK TEST ORDERABLES Edited Result - Final [facility]
[address] [place] [address], documented in this encounter Visit Diagnoses Diagnosis [...] BPA Driven Protocol Open Order & Select [facility] Electrolyte Replacement Protocol Algorithm to View [...] documented as of this encounter Care Teams Political Aide Relationship Specialty Start Date End Date Norma Friedman APRN [address] [place] G3 RAFAELA APPIAH [address] PCP - General Family Medicine 05/14/24 documented as of this encounter
--- OUTSIDE RECORDS SUMMARY | 2024-08-20 13:44 | XMS_ITS | Encounter Summary ---
Author [facility] Address [address] [place] [id number] Care Team Providers Care Cardiac Monitor Technician Name Role Phone IvyKade goldbergdev FERNÁNDEZ Primary Care Provider + [phone] Reason for Visit * Auth/Cert (Routine) Specialty Diagnoses / Procedures Referred By Contac t Referred To Contact Referral ID Status Reason Start Date Expiration Date Visits Re quested Visits Authorized 1 1 Encounter Details Date Type Department Care Team (Late st Contact Info) Description 08/20/2024 1:44 PM EDT Anest[facility] Event [facility] [address] [place] [address] Akash Anguiano MD [address] [place] [address] Liborio Peralta CRNA [address] [place] [address] Anesthesia Record Procedure Summary Procedure Name Responsible [...] Patient Tolerance: Tolerated well 08/19/24 1458 by Nnkea Cross RN ETT Placement Date: 08/06 06/30; [...] heating? Not hard at all 05/28/2024 [facility] [place] of Occupat ional Health - Occupational Stress [...] GED or equivalent No 05/28/2024 Preferred Language Guinean 05/28/2024 PHQ-2 Answer Date Recorded Patient [...] 1:23 PM EDT Polly Lacey RN * [place] Suicide Severity Rating Scale (Screener/Recent Self-Report) Question Answer Date of Assessment Author 6. Suicidal Behavior (Lifetime) No 1:23 PM EDT Polly Cabrera RN documented as of this encounter OR Notes * Anesthesia Postprocedure Evaluation - Liborio Peralta CRNA - 08/20/2024 2:18 PM EDT Patient: Whitney Presley Procedure Summary Date: 08/20/24 Room / Location: [facility]COPY 3 / [facility] Anesthesia Start: [...] sounds: normal. Substance History - negative use INFORMATION SECURITY DIRECTOR (+) (25 wks, FHT 147) Other Anesthesia Plan ASA 2 general Rapid sequence intravenous induction Anesthetic plan, risks, benefits, and alternatives have been provided, discussed and informed consent has been obtained with: patient. Plan discussed with PRODUCTION STAGE MANAGER. CODE STATUS: documented in this encounter Plan of Treatment Upcoming Encounters Date Type Department Care Team (Late st Contact Info) Description 01/20/2025 3:30 PM EST Office Visit [facility] [address] [facility] [address] Robbin Escalante MD [address] [address] documented as of this encounter Procedures Procedure [...] and Staff Patient location during procedure: [place] PRODUCTION STAGE MANAGER/CAA: Junior Zbigniew Jain, DAYNE Indications and Patient [...] as of this encounter Care Teams Cardiac Monitor Technician Relationship Specialty Start Date End Date Norma Friedman APRN [address] [place] [address] [place] [address] PCP - General Family Medicine 05/14/24 documented as of this encounter
--- OUTSIDE RECORDS SUMMARY | 2024-08-29 10:00 | XMS_ITS | Encounter Summary ---
[facility] Address [address] [place] [address] Care Team Providers Care Channel Manager Name Role Phone IvyKade goldbergjoseseven JOLENE Primary Care Provider + [phone] Reason for Visit * Reason Comments Problem Encounter Details Date Type Department Care Team (Late st Contact Info) Description 08/29/2024 10:00 AM EDT Routine [facility] OBGYN [address] [place] [address] Staci Jain MD [address] [place] [address] GA: 26w4d Social History Tobacco Use Types Packs/Day Years Used Date Smoking Tobacco: Never Smokeless Tobacco: Never Alcohol Use Standard Drinks/Week Comments Never 0 (1 standard drink = 0.6 oz pur e alcohol) [facility] Utilities Answer Date Recorded In the past 12 months has [employer], gas, oil, or water [employer] threatened to shut off services in your [...] and heating? Not hard at all 05/28/2024 [facility] [place] [facility] Health - Occupational Stress Questionnaire Answer [...] GED or equivalent No 05/28/2024 Preferred Language Jamaican 05/28/2024 PHQ-2 Answer Date Recorded Patient Health [...] 01/20/2025 3:30 PM EST Office Visit [facility] GASTROENTEROLOGY [address] [address] Robbin Escalante MD [address] [address] documented as of this encounter Procedures Procedure [...] 08/30/2024 6:09 AM EDT Performed at: [address] [id number] Crane Rigger: Kevin Harman MD, Phone: [phone] Patient Fasting: N us Staci Jain MD LAB BLOOD ORDERABLES Final Result [facility] ([facility]) [address] [place] [address], [facility] [address] [place] [address], * (ABNORMAL) Comprehensive Metabolic Panel (08/29/2024 11:05 [...] 11:0 5 AM EDT 08/29/2024 Narrative [facility] (AMBULATORY) - 08/30/2024 6:09 AM EDT Performed at: 01 - [place] [address] [address] [place], [place] [id number] Crane Rigger: Kevin Harman MD, Phone: [phone] Patient Fasting: N Staci Jain MD LAB BLOOD ORDERABLES Final Result Performing Organization Address City/[facility]/ZIP Co de Phone Number [facility] ([facility]) [address] [place] [address], [place] [phone] [facility] [address] [place] [address], [place] [phone] * (ABNORMAL) POC Urinalysis Dipstick (08/29/2024 10:13 AM EDT) Glucose, UA Negative Negative mg/dL [facility] Protein, POC Trace(A) Negative mg/dL [facility] Urine 08/29/2024 10:1 3 AM EDT us Staci Jain MD POINT OF CARE TEST OR DERABLES Final Result Performing Organization Address City/[facility]/ZIP Co de Phone Number [facility]
[address] [place] [place] [address], documented in this encounter Visit Diagnoses Diagnosis [...] documented as of this encounter Care Teams Channel Manager Relationship Specialty Start Date End Date Norma Friedman APRN [address] [place] [address] RAFAEL[place] APPIAH [address] PCP - General Family Medicine 05/14/24 documented as of this encounter
--- OUTSIDE RECORDS SUMMARY | 2024-09-23 10:00 | XMS_ITS | Encounter Summary ---
Author Organization [facility] Address [address] [place] [address] Care Team Providers Care Car Sales Consultant Name Role Phone Norma Friedman JOLENE Primary Care Provider +1- [phone] Reason for Referral * Consultation (Routine) - Closed Specialty Diagnoses / Procedures Referred By Contac t Referred To Contact Cardiology Diagnoses Supervision of high risk , antepartum Cardiac arrhythmia, unspecified cardiac arrhythmia type Liborio Weller MD [address] [address] [place] [address] Phone: tel: fax: Referral ID Status Reason Start Date Expiration Date V isits Requested Visits Authorized [id number] Closed Specialty Services Required 09/23/2024 03/25/2026 1 1 Encounter Details Date Type Department Care Team ([facility] st Contact Info) Description 09/23/2024 10:00 AM EDT Office Visit Medical Office Building Obstetrics and Gynecology [address], [address] [place] [address] Liborio Weller MD [address] [facility] [address] [place] [address] Supervision of high risk , [...] more drinks on one occasion? Never 09/23/2024 [place] Depression Scale Answer Date Recorded [place] Depression Scale Total 0 09/23/2024 The thought [...] last week on 09/19. She presented to [facility] for chest pain and palpitations. She [...] 09/25 and has otherwise never seen a strategy manager. She has never seen a car body mechanic. She also reports during this admission she [...] None N JAGDISH Complications: Potassium (K) deficiency [place] Depression Scale Total: 0 Gynecology History No [...] has a past surgical history that includes [place] tooth extraction (N/A); section, low transverse (N/A); [...] prescription(s): ferosul, potassium chloride cr, prenat mv-min w/fb-udcmhw-dpv, and thiamine. Allergies Allergies[1] Review of Systems [...] Had tachycardia and arrhythmia during admission to [facility] on 09/19 HR to 170s-180s with standing, [...] other day Has never been evaluated by strategy manager for salt wasting nephropathy PLAN Has [...] the patient, and documenting this visit. (Est [id number]) Brandee Pringle MD Obstetrics & Gynecology, PGY-2 [...] Care Team (Late st Contact Info) Description 10/24/2024 8:00 AM EDT Office Visit [facility] [place] [address], [address] [place] [address] Nneka Block MD [address] [place] [address] 12/25/2024 1:00 PM EST Office Visit [facility] Nephrology, Bone & Mineral Metabolism [address], [address] [place] [address] Scheduled Referrals Name Type Priority [...] Ketones, Urine 40(A) Negative mg/dL POCT Specific [place], Urine 1.015 POCT Blood, Urine Negative Negative POCT pH, Urine >=9.0(A) 5.0 to 8.0 POCT Protein, Urine 100(A) Negative mg/dL POCT Urobilinogen, Urine 0.2 0.2, 1 E.U./dL POCT Nitrite, Urine Negative Negative POCT Leukocyte Esterase, Urine Negative Negative Test Strip Lot Number [id number] Test Strip Lot Expiration 07/2025 Urine Urine [...] documented as of this encounter Care Teams Car Sales Consultant Relationship Specialty Start Date End Date Norma Friedman APRN [address] [place] [id number] PCP - General 09/23/24 documented as of this encounter
--- OUTSIDE RECORDS SUMMARY | 2024-09-25 14:20 | XMS_ITS | Encounter Summary ---
Author Organization Healthcare Address [address] [place] [address] Care Team Providers Care Malted Milk Mixer Name Role Phone Norma Friedman JOLENE Primary Care Provider +1- [phone] Reason for Referral * Consultation (Routine) - Authorized Specialty Diagnoses / Procedures Referred By Tarik pedersen Referred To Contact Diagnoses Hypokalemia Bill Patrick MD [address] [place] [phone] Phone: tel: fax: Referral ID Status Reason Start Date Expiration Date V isits Requested Visits Authorized [id number] Authorized 09/25/2024 03/27/2026 1 1 * Imaging (Routine) - Authorized Specialty Diagnoses / Procedures Referred By Tarik pedersen Referred To Contact Radiology Diagnoses Hypokalemia Procedures US Renal Complete Bill Patrick MD [address] [place] [phone] Phone: tel: fax: Referral ID Status Reason Start Date Expiration Date V isits Requested Visits Authorized [id number] Authorized 09/25/2024 03/27/2026 1 1 Reason for Visit * Reason Comments Consult * Consultation (Routine) - Closed Specialty Diagnoses / Procedures Referred By Tarik pedersen Referred To Contact Nephrology Diagnoses Hypokalemia Liborio Weller MD [address] [address] Phone: tel: fax: [facility], [place], [facility] Nephrology, Bone & Mineral Metabolism [address] , [address] [place] [address] Phone: tel: fax: Referral ID Status Reason Start Date Expiration Date V isits Requested Visits Authorized [id number] Closed Specialty Services Required 09/14/2024 03/16/2026 1 1 Encounter Details Date Type Department Care Team (Late st Contact Info) Description 09/25/2024 2:20 PM EDT Office Visit [facility], [place], [facility] Nephrology, Bone & Mineral Metabolism [address] , [address] [place] [address] Bill Patrick MD [address] [place] [address] Hypokalemia (Primary Dx) Social History [...] more drinks on one occasion? Never 09/23/2024 [place] Depression Scale Answer Date Recorded [place] Depression Scale Total 0 09/23/2024 The thought [...] 37 weeks andshe did not see a [employer] at that time. Also notes she has [...] Date SECTION, LOW TRANSVERSE N/A section from [facility] [employer] DILATION AND CURETTAGE OF UTERUS N/A Dilation and curettage from [facility] WISDOM TOOTH EXTRACTION N/A Oral Surgery Tooth Extraction [place] Tooth from [facility] [3] Family History Problem Relation Name Age [...] mouth 3 times a day.) Prenat MV-Min w/[id number]-[id number]-[id number] ( COMPLETE PO) thiamine (Vitamin B-1) 100 [...] Description 10/24/2024 8:00 AM EDT Office Visit [facility] [place] [address], [address] [place] [address] Nneka Block MD [address] [place] [address] 12/25/2024 1:00 PM EST Office Visit [facility], [place] Nephrology, Bone & Mineral Metabolism [address], [address] [place] [address] Scheduled Orders Name Type Priority [...] Chloride, Urine 25 mmol/L 2:03 PM EDT [facility] Urine Urine specimen obtained by clean catch procedure / Unknown Non-blood Collection / Unknown 09/26/2024 10:07 AM EDT 09/26/2024 10:07 AM EDT us Bill Patrick MD LAB URINE ORDERABLES Final Resul t [facility] [address] [place] [address] * Protein, Random, Urine with Creatinine (09/26/2024 10:03 AM EDT) Protein, Urine 26 mg/dL 09/26/2024 12:08 PM EDT [facility] Creatinine, Urine 199 mg/dL 09/26/2024 12:08 PM EDT [facility] Protein/Creati nine Ratio 0.1 mg/mg Creat 09/26/2024 12:08 PM EDT [facility] Urine Urine specimen obtained by clean catch procedure / Unknown Non-blood Collection / Unknown 09/26/2024 10:03 AM EDT 09/26/2024 10:04 AM EDT us Bill Patrick MD LAB URINE ORDERABLES Final Resul t Performing Organization Address City/[facility] Co de Phone Number [facility] [address] [place] [address] * Potassium, urine, random (09/26/2024 10:02 AM EDT) Potassium, Urine 43 mmol/L 09/26/2024 11:55 AM EDT [facility] Urine Urine specimen obtained by clean catch procedure / Unknown Non-blood Collection / Unknown 09/26/2024 10:02 AM EDT 09/26/2024 10:02 AM EDT us Bill Patrick MD LAB URINE ORDERABLES Final Resul t Performing Organization Address [facility] Co de Phone Number [facility] [address] [place] [address] * Osmolality, urine (09/26/2024 10:02 AM EDT) Osmolality, Urine 404 50 - 1,200 mOsm/kg 09/26/2024 1:48 PM EDT [facility] Urine Urine specimen obtained by clean catch procedure / Unknown Non-blood Collection / Unknown 09/26/2024 10:02 AM EDT 09/26/2024 10:02 AM EDT us Bill Patrick MD LAB URINE ORDERABLES Final Resul t Performing Organization Address [facility] Co de Phone Number [facility] [address] [place] [address] * Sodium, urine, random (09/26/2024 10:02 AM EDT) Sodium, Urine 110 mmol/L 09/26/2024 11:55 AM EDT [facility] Urine Urine specimen obtained by clean catch procedure / Unknown Non-blood Collection / Unknown 09/26/2024 10:02 AM EDT 09/26/2024 10:02 AM EDT us Bill Patrick MD LAB URINE ORDERABLES Final Resul t Performing Organization Address City/[facility] Co de Phone Number [facility] [address] [place] [address] * Antinuclear Antibody (JEFFERY), HEp-2, IgG (09/26/2024 9:32 AM EDT) JEFFERY INTERPRETIVE COMMENT See Note 09/28/2024 5:13 PM EDT [facility] ([facility]) Anti Nuc Ab Screen <1:80 <1:80 09/28/2024 5:13 PM EDT [facility] ([facility]) Blood Venous blood specimen / Unknown Venipuncture / Unknown 09/26/2024 9:32 AM EDT 09/26/2024 9:32 AM EDT Narrative [facility] ([facility]) - 09/28/2024 5:13 PM EDT INTERPRETIVE INFORMATION: [...] rings, and cytoplasmic speckled patterns. Performed By: [facility] [address] [place] [address] [employer] Batching Plant Operator: Brandon Bell MD, PhD CLIA Number: [id number] Bill Patrick MD LAB BLOOD ORDERABLES Final Resul t Performing Organization Address City/[facility]/ZIP Co de Phone Number [facility] ([facility]) [address] [place] [address] * Rheumatoid factor, plasma (09/26/2024 9:32 AM EDT) Rheumatoid Factor, Plasma <10 <14 IU/mL 09/26/2024 1:49 PM EDT [facility] Blood Venous blood specimen / Unknown Venipuncture / Unknown 09/26/2024 9:32 AM EDT 09/26/2024 9:32 AM EDT Bill Patrick MD LAB BLOOD ORDERABLES Final Resul t [facility] [address] [place] [address] * SSB (LA) (YARA) ANTIBODY, IGG (09/26/2024 9:32 AM EDT) SSB (LA) (YARA) Antibody, IgG 0 0 - 40 AU/mL 09/28/2024 5:47 PM EDT [facility] ([facility]) Serum Venous blood specimen / Unknown 09/26/2024 9:32 AM EDT 09/26/2024 9:32 AM EDT [facility]ative [facility] - 09/28/2024 5:47 PM EDT INTERPRETIVE INFORMATION: [...] (PSS) also have this antibody. Performed By: [facility] [address] [place] [address] Con[employer] Batching Plant Operator: Brandon Bell MD, PhD CLIA Number: [id number] us Bill Patrick MD LAB BLOOD ORDERABLES Final Resul t [facility] ([facility]) [address] [place] [address] * SSA 52 and 60 (Ro) (YARA) Antibodies, IgG (09/26/2024 9:32 AM EDT) SSA-52 (RO52) (YARA) Antibody, IgG 2 0 - 40 AU/mL 09/28/2024 5:47 PM EDT [facility] ([facility]) SSA-60 (RO60) (YARA) Antibody, IgG 0 0 - 40 AU/mL 09/28/2024 5:47 PM EDT [facility] ([facility]) Serum 09/26/2024 9:32 AM EDT 09/26/2024 9:32 AM EDT Narrative [facility] ([facility]) - 09/28/2024 5:47 PM EDT INTERPRETIVE INFORMATION: [...] AU/mL or Greater .......... Positive Performed By: [facility] [address] [place] [address] Concrete Batching Plant Operator: Brandon Bell MD, PhD CLIA Number: [id number] Bill Patrick MD LAB REF LAB BLOOD AND FLUID ORD Final Result [facility]) [address] [place] [address] * (ABNORMAL) Renal function panel (09/26/2024 9:32 AM EDT) Glucose, Plasma 87 74 - 99 mg/dL 09/26/2024 12:24 PM EDT [facility] BUN, Plasma 5(L) 7 - 21 mg/dL 09/26/2024 12:24 PM EDT [facility] Creatinine, Plasma 0.72 0.60 - 1.10 mg/dL 09/26/2024 12:24 PM EDT [facility] BUN/Creatinine Ratio 7 09/26/2024 12:24 PM EDT [facility] Sodium, Plasma 135(L) 136 - 145 mmol/L 09/26/2024 12:24 PM EDT [facility] Potassium, Plasma 3.1(L) 3.6 - 4.9 mmol/L 09/26/2024 12:24 PM EDT [facility] Chloride, Plasma 95(L) 97 - 107 mmol/L 09/26/2024 12:24 PM EDT [facility] CO2, Plasma 26 22 - 29 mmol/L 09/26/2024 12:24 PM EDT [facility] Anion Gap 14 6 - 16 mmol/L 09/26/2024 12:24 PM EDT [facility] Total Calcium, Plasma 9.4 8.9 - 10.2 mg/dL 09/26/2024 12:24 PM EDT [facility] Phosphorus, Plasma 3.5 2.5 - 4.5 mg/dL 09/26/2024 12:24 PM EDT [facility] Albumin, Plasma 3.6 3.5 - 5.2 g/dL 09/26/2024 12:24 PM EDT [facility] eGFRcr 113.4 mL/min/1.7 3m*2 09/26/2024 12:24 PM EDT [facility] Comment:Reported eGFRcr in m L/min/1.73m2 is based the CKD-EPI 2020 equation that does not use a race coefficient. Blood Venous blood specimen / Unknown Venipuncture / Unknown 09/26/2024 9:32 AM EDT 09/26/2024 9:32 AM EDT us Bill Patrick MD LAB BLOOD ORDERABLES Final Resul t Performing Organization Address City/[facility] Co de Phone Number [facility] [address] [place] [address] * (ABNORMAL) Osmolality (09/26/2024 9:32 AM EDT) Osmolality, Serum 273(L) 275 - 295 mOsm/Kg 09/26/2024 2:10 PM EDT [facility] Blood Venous blood specimen / Unknown Venipuncture / Unknown 09/26/2024 9:32 AM EDT 09/26/2024 9:32 AM EDT us Bill Patrick MD LAB BLOOD ORDERABLES Final Resul t Performing Organization Address City/[facility] de Phone Number [facility] [address] [place] [address] documented in this encounter Visit Diagnoses Diagnosis Hypokalemia- Primary Hypopotassemia documented in this encounter Additional Health Concerns Assessment Noted Time A fall risk assessment has been complete d for the patient 09/25/2024 3:05 PM EDT A Body Mass Index follow-up plan has been documented for the patient 10/05/2024 8:54 PM EDT documented as of this encounter Care Teams Malted Milk Mixer Relationship Specialty Start Date End Date Norma Friedman APRN [address] [place] [id number] PCP - General 09/23/24 documented as of this encounter
--- OUTSIDE RECORDS SUMMARY | 2024-09-26 08:00 | XMS_ITS | Encounter Summary ---
Author Organization [facility] Address [address] [place] [address] Care Team Providers Care Platform Beater Name Role Phone Norma Friedman OFFICE EQUIPMENT TECHNICIAN Primary Care Provider +1- [phone] Lizz Trinh RN Unavailable Unavailable Reason for Referral * Consultation (Routine) - Authorized Specialty Diagnoses / Procedures Referred By Tarik pedersen Referred To Contact Diagnoses Palpitations Syncope and collapse Nneka Block MD [address] [place] [phone] Phone: tel: fax: Referral ID Status Reason Start Date Expiration Date V isits Requested Visits Authorized [id number] Authorized 09/26/2024 03/28/2026 1 1 * Cardiac Stress Testing (Routine) - Closed Specialty Diagnoses / Procedures Referred By Contac t Referred To Contact Cardiology Diagnoses Palpitations Syncope and collapse Procedures Adult Patch Monitor - 7 Day Nneka Block MD [address] [place] [phone] Phone: tel: fax: Referral ID Status Reason Start Date Expiration Date Visits Re quested Visits Authorized [id number] Closed 09/26/2024 03/28/2026 1 1 Reason for Visit * Consultation (Routine) - Closed Specialty Diagnoses / Procedures Referred By Contac t Referred To Contact Cardiology Diagnoses Supervision of high risk , antepartum Cardiac arrhythmia, unspecified cardiac arrhythmia type [place] Preciado MD [address] [address] Phone: tel: fax: Referral ID Status Reason Start Date Expiration Date V isits Requested Visits Authorized [id number] Closed Specialty Services Required 09/23/2024 03/25/2026 1 1 Encounter Details Date Type Department Care Team (Late st Contact Info) Description 09/26/2024 8:00 AM EDT Office Visit [facility] [place] [address] [facility], [address] [place] [address] Nneka Block MD [address] [place] [address] Syncope and collapse (Primary Dx); [...] more drinks on one occasion? Never 09/23/2024 [place] Depression Scale Answer Date Recorded [place] Depression Scale Total 0 09/23/2024 The [...] Block MD - 09/26/2024 8:00 AM EDT [place] [facility] ([facility]) Problem List #Hypomagnesium and Hypokalemia -- PICC [...] home with no plans. 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 and [...] TOOTH EXTRACTION N/A Oral Surgery Tooth Extraction [place] To[facility] from [employer] [3] Social History Socioeconomic [...] Resource Strain: Low Risk (05/28/2024) Received from [facility] Overall Financial Resource Strain (CARDIA) Difficulty of Paying Living Expenses: Not hard at all Food Insecurity: No Food Insecurity (05/28/2024) Received from [facility] Hunger Vital Sign Within the past 12 months, you worried that your food would run out before you got the money to buymore.: Never true Within the past 12 months, the food you bought just didn't last and you didn't have money to get more.: Never true Transportation Needs: No Transportation Needs (05/28/2024) Received from [facility] PRAPARE - Transportation In the past 12 months, has lack of transportation kept you from medical appointments or from getting medications?: No In the past 12 months, has lack of transportation kept you from meetings, work, or from getting things needed for daily living?: No Physical Activity: Sufficiently Active (05/28/2024) Received from [facility] Exercise Vital Sign On average, how many days per week do you engage in moderate to strenuous exercise (like a brisk walk)?: 5 days On average, how many minutes do you engage in exercise at this level?: 40 min Stress: Stress Concern Present (05/27/2024) Received from [facility] [place] of Occupational [facility] - Occupational Stress Questionnaire Feeling of Stress : To some extent Social Connections: Not At Risk (05/28/2024) Received from [facility] Family and Community Support If for any reason you need help with day-to-day activities such as bathing, preparing meals, shopping, managing finances, etc., do you get the help you need?: I don't need any help How often do you feel lonely or isolated from those around you?: Sometimes Intimate Partner Violence: Not At Risk (08/19/2024) Received from [facility] Abuse Screen Feels Unsafe at Home or Work/School: no Feels Threatened by Someone: no Does Anyone Try to Keep You From Having Contact with Others or Doing Things Outside Your Home?: no Physical Signs of Abuse Present: no Housing Stability: Not At Risk (08/20/2024) Received from [facility] Housing Stability Current Living Arrangements: home Potentially [...] Description 10/24/2024 8:00 AM EDT Office Visit [facility] [place] [address], [address] [place] [address] Nneka Block MD [address] [place] [address] 12/25/2024 1:00 PM EST Office Visit [facility] [place] Nephrology, Bone & Mineral Metabolism [address], [address] [place] [address] Pending Results Name Type Priority [...] ECG Atrial Rate 84 BPM MUSE ECG [place] Interval 148 ms MUSE ECG QRSD Interval 74 ms MUSE ECG QT Interval 374 ms MUSE ECG QTC Interval 441 ms MUSE ECG P [place] 60 degrees MUSE ECG R [place] 36 degrees MUSE ECG T Wave [place] 55 degrees MUSE ECG Diagnosis Normal sinus rhythm with sinus arrhythmia MUSE ECG Diagnosis Normal ECG MUSE ECG Diagnosis MUSE ECG Diagnosis Confirmed by Abad South ([id number]) on 09/26/2024 12:13:59 PM MUSE ECG 09/26/2024 [...] documented as of this encounter Care Teams Platform Beater Relationship Specialty Start Date End Date Norma Friedman APRN [address] [place], [place] [id number] PCP - General 09/23/24 Lizz Trinh, RN [facility] Registered Nurse Cardiology 09/26/24 documented as of this encounter
--- OUTSIDE RECORDS SUMMARY | 2024-09-26 09:06 | XMS_ITS | Encounter Summary ---
Author Organization [facility] Address [address] [place] [address] Care Team Providers Care Occupational Therapist Rehab Manager Name Role Phone Elder Kadedev Coy AGRICULTURAL PLOW OPERATOR Primary Care Provider +1- [phone] Lizz Trinh RN Unavailable Unavailable Reason for Referral * Cardiac Stress Testing (Routine) - Closed Specialty Diagnoses / Procedures Referred By Tarik pedersen Referred To Contact Cardiology Diagnoses Palpitations Syncope and collapse Procedures Adult Patch Monitor - 7 Day Nneka Block MD [address] [place] [address] Phone: tel: fax: Referral ID Status Reason Start Date Expiration Date Visits Re quested Visits Authorized [id number] Closed 09/26/2024 03/28/2026 1 1 Reason for Visit * Cardiac Stress Testing (Routine) - Closed Specialty Diagnoses / Procedures Referred By Tarik pedersen Referred To Contact Cardiology Diagnoses Palpitations Syncope and collapse Procedures Adult Patch Monitor - 7 Day Nneka Block MD [address] [place] [address] Phone: tel: fax: Referral ID Status Reason Start Date Expiration Date Visits Re quested Visits Authorized [id number] Closed 09/26/2024 03/28/2026 1 1 Encounter Details Date Type Department Care Team (Latest Contact Info) Description 09/26/2024 9:06 AM EDT - 09/26/2024 11:59 PM EDT Hospital Encounter Medical Office Building Cardiac Diagnostic Testing Medical Office Building Echo Lab [address] [facility], [address] [place] [address] Palpitations; Syncope and collapse Discharge Disposition: Home or Self Care Social [...] more drinks on one occasion? Never 09/23/2024 [place] Depression Scale Answer Date Recorded [place] Depression Scale Total 0 09/23/2024 The thought [...] this encounter Medications at Time of Discharge FeroSul 325 (65 Fe) MG tablet Take 1 tablet by mouth daily. 09/12/2024 metoprolol succinate XL (Toprol XL) 25 MG 24 hr tablet Take 0.5 tablets by mouth 2 times a day. Do not crush or chew. 30 tablet 1 09/23/2024 omeprazole (PriLOSEC) [address] capsule Take 1 capsule by mouth 1 time each day. ondansetron ODT (Zofran-ODT) 4 MG disintegrating tablet DISSOLVE 1 TABLET IN MOUTH EVERY 8 HOURS NEEDED FOR NAUSEA AND VOMITING FOR 4 DAYS pantoprazole (Protonix) 40 MG EC tablet 12/14/2023 potassium chloride (Klor-Con) 20 MEQ packet Take twice a day for 3 days each week. Weekly labs 09/01/2024 potassium chloride CR 10 MEQ PO ER tablet Take 1 tablet by mouth 2 times a day. 09/02/2024 Prenat MV-Min w/Ez-Vwvhek-HBX ( COMPLETE PO) 12/25/2018 thiamine (Vitamin B-1) 100 MG tablet Take 1 tablet by mouth 1 time each day. 09/01/2024 documented as of this encounter Plan of Treatment Upcoming Encounters Date Type Department Care Team (Late st Contact Info) Description 10/24/2024 8:00 AM EDT Office Visit [facility] [place] [address] [facility], [address] [place] [address] Nneka Block MD [address] [place] [address] 12/25/2024 1:00 PM EST Office Visit [facility] Nephrology, Bone & Mineral Metabolism [address] [facility], [address] [place] [address] Pending Results Name Type Priority Associated Diagnoses Date /Time Adult Patch Monitor - 7 Day Cardiac Services Routine Palpitations Syncope and collapse 09/26/2024 9:23 AM EDT Scheduled Orders Name Type Priority Associated Diagnoses Orde r Schedule Adult Patch Monitor - 7 Day Cardiac Services Routine Palpitations Syncope and collapse Once for 1 Occurrences starting 09/26/2024 until 09/26/2024 documented as of this encounter Visit Diagnoses Diagnosis Palpitations Syncope and collapse documented in this encounter Additional Health Concerns Assessment Noted Time A fall risk assessment has been complete d for the patient 09/26/2024 8:15 AM EDT A Body Mass Index follow-up plan has been documented for the patient 09/27/2024 10:22 AM EDT documented as of this encounter Care Teams Occupational Therapist Rehab Manager Relationship Specialty Start Date End Date Norma Friedman APRN [address] [place] [address] PCP - General 09/23/24 Lizz Trinh, RN [facility] Registered Nurse Cardiology 09/26/24 documented as of this encounter
[2024-10-06 06:17] VITALS: BMI 27.4
--- OUTSIDE RECORDS SUMMARY | 2024-10-06 06:17 | XMS_ITS | Clinical Summary ---
Author Organization [facility] [place] [address] Phone Care Team Providers Care Gang Worker Name Role Phone Unavailable Primary Care [...] migh t be different from the original. [facility] - Edwardo Ojeda MD Interventional Pain Protocol: NS Appt 03/29/22 Letter Sent Maxime report completed (EVERY 3 MONTHS) ( 03/23/22) Pharmacy: [facility] [address] [place] [id number] [phone] [facility] south - [phone] No known active problems Social History Tobacco [...] patient's age to complete this topic Insurance [email or web address] [facility] [place]
--- OUTSIDE RECORDS SUMMARY | 2024-10-06 06:17 | XMS_ITS | Encounter Summary ---
[facility] Address [address] [place] [address] Care Team Providers Care Pin Drafter Name Role Phone Norma Friedman APRN Primary Care Provider + [phone] Encounter Details Date Type Department Care Team (Late st Contact Info) Description 08/19/[address] [facility] OBGYN [address] [place] [address] Jacey Mathews, DEBIT AGENT 1700 [facility] [address] [place] [address] Social History Tobacco Use Types Packs/Day Years Used Date Smoking Tobacco: Never Smokeless Tobacco: Never Alcohol Use Standard Drinks/Week Comments Never 0 (1 standard drink = 0.6 oz pur e alcohol) [facility] Utilities Answer Date Recorded In the past 12 months has [employer], [employer], oil, or water [employer] threatened to shut off services in your [...] 05/28/2024 [facility] of Occupat ional [facility] - Occupational Stress Questionnaire Answer Date [...] Visit [facility] GASTROENTEROLOGY [address] [address] Robbin Escalante MD [address] [address] documented as of this encounter Visit Diagnoses Not on filedocumented in this encounter Additional Health Concerns Assessment Noted Time PHQ-2 Depression Total Score: 2 05/28/19 25 4:39 PM EDT documented as of this encounter Care Teams Pin Drafter Relationship Specialty Start Date End Date Norma Friedman APRN [address] [place] [place]FA[place] APPIAH [address] PCP - General Family Medicine 05/14/24 documented as of this encounter
--- OUTSIDE RECORDS SUMMARY | 2024-10-06 06:17 | XMS_ITS | Encounter Summary ---
Author Organization [facility] Address [address] [place] [address] Care Team Providers Care Wash Driller Helper Name Role Phone Elder Kadedev Coy APRN Primary Care Provider +[phone]- [phone] Lizz Trinh RN Unavailable Unavailable Reason for Referral * Consultation (Routine) - Authorized Specialty Diagnoses / Procedures Referred By Tarik pedersen Referred To Contact Nephrology Diagnoses History of proteinuria syndrome care, subsequent , second trimester Staci Jain MD [address] [address] Phone: tel: fax: [facility] [place] Nephrology, Bone & Mineral Metabolism [address] [facility], [address] [place] [address] Phone: tel: fax: Referral ID Status Reason Start Date Expiration Date Visits Requested Visits Authorized [id number] Authorized Specialty Services Required 07/22/2024 01/21/2026 1 1 Encounter Details Date Type Department Care Team (Late st Contact Info) Description 07/22/2024 Community Orders [facility] [address] [place] [address] Staci Jain MD 1700 [place] [address] History of proteinuria syndrome (Primary Dx); care, [...] Description 10/24/2024 8:00 AM EDT Office Visit [facility] [place] [address] [facility], [address] [place] [address] Nneka Block MD [address] [place] [address] 12/25/2024 1:00 PM EST Office Visit [facility] [employer] [facility] [place] Nephrology, Bone & Mineral Metabolism [address] [facility], [address] [place] [address] Scheduled Referrals Name Type Priority Associated Diagnoses Orde r Schedule Ambulatory referral to Nephrology Outpatient Referral Routine History of proteinuria syndrome care, subsequent , second trimester Expected: 07/22/2024 (Approximate), Expires: 01/23/2026 documented as of this encounter Visit Diagnoses Diagnosis History of proteinuria syndrome- Primary care, subsequent , second trimester documented in this encounter Care Teams Wash Driller Helper Relationship Specialty Start Date End Date Norma Friedman APRN [address] [place] [id number] PCP - General 09/23/24 Lizz Trinh, RN [facility] Registered Nurse Cardiology 09/26/24 documented as of this encounter
--- OUTSIDE RECORDS SUMMARY | 2024-10-06 06:17 | XMS_ITS | Encounter Summary ---
[facility] Address [address] [place] [id number] Care Team Providers Care Grinder Set Up Operator Centerless Name Role Phone Ivyashlyn Valentinoseven JOLENE Primary Care Provider + [phone] Encounter Details Date Type Department Care Team (Late st Contact Info) Description 06/26/2024 Results Follow-Up [facility] OBGYN [address] [address] Koby Roberts MD 1700 [place] [address] Social History Tobacco Use Types Packs/Day Years Used Date Smoking Tobacco: Never Smokeless Tobacco: Never Alcohol Use Standard Drinks/Week Comments Never 0 (1 standard drink = 0.6 oz pur e alcohol) [facility] Utilities Answer Date Recorded In the past 12 months has [employer], gas, oil, or water [employer] threatened to shut off services in your [...] all 05/28/2024 [facility] [place] of Occupat ional Health - Occupational Stress [...] 01/20/2025 3:30 PM EST Office Visit [facility]OLOGY [address] [facility] [address] Robbin Escalante MD [address] [address] documented as of this encounter Visit Diagnoses Not on filedocumented in this encounter Additional Health Concerns Assessment Noted Time PHQ-2 Depression Total Score: 2 05/28/19 25 4:39 PM EDT documented as of this encounter Care Teams Grinder Set Up Operator Centerless Relationship Specialty Start Date End Date Norma Friedman APRN [address] [place] [address] [place]FA[place] APP[place] [address] PCP - General Family Medicine 05/14/24 documented as of this encounter
--- OUTSIDE RECORDS SUMMARY | 2024-10-06 06:17 | XMS_ITS | Encounter Summary ---
Author Organization Healthcare Address [address] [place] [address] Care Team Providers Care Airline Radio Operator Name Role Phone Norma burger JOLENE Primary Care Provider +[phone]- [phone] Lizz Trinh RN Unavailable Unavailable Encounter Details Date Type Department Care Team (Late Contact Info) Description 07/22/2024 Community [facility] Community Practice [address] [place] [address] Sandy Cardenas MD 1700 [facility] [address] [place] [address] Social History Tobacco Use Types Packs/Day Years [...] Description 10/24/2024 8:00 AM EDT Office Visit [facility] [place] [address] [facility], [address] [place] [address] Nneka Block MD [address] [place] [address] 12/25/2024 1:00 PM EST Office Visit [facility] Nephrology, Bone & Mineral Metabolism [address] [facility], [address] [place] [address] documented as of this encounter Visit Diagnoses Not on filedocumented in this encounter Care Teams Airline Radio Operator Relationship Specialty Start Date End Date Norma Friedman, JOLENE [address] [place], [place] [id number] PCP - General 09/23/24 Lizz Trinh, RN [facility] Registered Nurse Cardiology 09/26/24 documented as of this encounter
--- OUTSIDE RECORDS SUMMARY | 2024-10-06 06:18 | XMS_ITS | Encounter Summary ---
Author Organization [facility] Address [address] [place] [address] Care Team Providers Care Product Applications Scientist Name Role Phone Ivyashlyn Norma FERNÁNDEZ Primary Care Provider + [phone] Encounter Details Date Type Department Care Team (Late st Contact Info) Description 08/27/2024 Telephone [facility] OBGYN [address] [place] [address] Staci Jain MD 1700 [facility] [address] [place] [address] Social History Tobacco Use Types Packs/Day Years Used Date Smoking Tobacco: Never Smokeless Tobacco: Never Alcohol Use Standard Drinks/Week Comments Never 0 (1 standard drink = 0.6 oz pur e alcohol) [facility] Utilities Answer Date Recorded In the past 12 months has [employer], [employer], oil, or water [employer] threatened to shut off services in your [...] and heating? Not hard at all 05/28/2024 [facility] [place] of Occupat ional Health - Occupational Stress [...] GED or equivalent No 05/28/2024 Preferred Language Libyan 05/28/2024 PHQ-2 Answer Date Recorded Patient Health [...] Office Visit [facility] GASTROENTEROLOGY [address] [address] Robbin Escalante MD [address] [address] documented as of this encounter Visit Diagnoses Diagnosis History of hypokalemia- Primary documented in this encounter Additional Health Concerns Assessment Noted Time PHQ-2 Depression Total Score: 2 05/28/19 25 4:39 PM EDT documented as of this encounter Care Teams Product Applications Scientist Relationship Specialty Start Date End Date Norma Friedman APRN [address] [place] [address] [place]IA[place] [address] PCP - General Family Medicine 05/14/24 documented as of this encounter
--- OUTSIDE RECORDS SUMMARY | 2024-10-06 06:18 | XMS_ITS | Clinical Summary ---
Author Organization [facility] Address [address] [place] [address] Care Team Providers Care Health Commissioner Name Role Phone Unavailable Primary Care Provider Unavailabl e Source Comments [facility] is fully rolled out with thefollowing exceptions:General Clinical Research [facility] Social History Tobacco Use Types [...]
--- OUTSIDE RECORDS SUMMARY | 2024-10-06 06:18 | XMS_ITS | Encounter Summary ---
Author Organization [facility] Address [address] [place] [id number] Care Team Providers Care Cabinetmaker Supervisor Name Role Phone IvyKade goldbergjoseseven JOLENE Primary Care Provider + [phone] Encounter Details Date Type Department Care Team (Late st Contact Info) Description 09/03/2024 Results Follow-Up [facility] OBGYN [address] [place] [address] Staci Jain MD 1700 [facility] [address] [place] [address] Social History Tobacco Use Types Packs/Day Years Used Date Smoking Tobacco: Never Smokeless Tobacco: Never Alcohol Use Standard Drinks/Week Comments Never 0 (1 standard drink = 0.6 oz pur e alcohol) [facility] Utilities Answer Date Recorded In the past 12 months has [employer], gas, oil, or water [employer] threatened to shut off services in your [...] heating? Not hard at all 05/28/2024 [facility] of Occupat ional Health - [...] Office Visit [facility] GASTR[facility]ENTEROLOGY [address] [address] Robbin Escalante MD [address] [address] documented as of this encounter Visit Diagnoses Not on filedocumented in this encounter Additional Health Concerns Assessment Noted Time PHQ-2 Depression Total Score: 2 05/28/19 4:39 PM EDT documented as of this encounter Care Teams Cabinetmaker Supervisor Relationship Specialty Start Date End Date Norma Friedman APRN [address] [place] [address] [place] APPIA[place] [address] PCP - General Family Medicine 05/14/24 documented as of this encounter
--- OUTSIDE RECORDS SUMMARY | 2024-10-06 06:18 | XMS_ITS | Encounter Summary ---
[facility] Address [address] [place] [address] Care Team Providers Care Stock Preparation Supervisor Name Role Phone Norma Friedman APRN Primary Care Provider + [phone] Encounter Details Date Type Department Care Team (Latest Contact Info) Description 08/29/2024 Travel Social History Tobacco Use Types Packs/Day Years Used Date Smoking Tobacco: Never Smokeless Tobacco: Never Alcohol Use Standard Drinks/Week Comments Never 0 (1 standard drink = 0.6 oz pur e alcohol) [facility] Utilities Answer Date Recorded In the past 12 months has [employer] electric, gas, oil, or water company threatened [...] heating? Not hard at all 05/28/2024 [facility] [place] of Occupat ional Health - Occupational [...] Visit [facility] 1720 [facility] [address] [place] [address] Robbin Escalante MD [address]20 [facility] [address] [place] [address] documented as of this encounter Visit Diagnoses Not on filedocumented in this encounter Additional Health Concerns Assessment Noted Time PHQ-2 Depression Total Score: 2 05/28/19 25 4:39 PM EDT documented as of this encounter Care Teams Stock Preparation Supervisor Relationship Specialty Start Date End Date Norma Friedman APRN [address] [place] [address] [place] [address] PCP - General Family Medicine 05/14/24 documented as of this encounter
--- OUTSIDE RECORDS SUMMARY | 2024-10-06 06:18 | XMS_ITS | Referral Summary ---
Author Organization [employer] ([place], [place], [place], [place] Address [address] [place] [address] Care Team Providers Care Senior Games Technician Name Role Phone Unavailable Primary Care [...]
--- OUTSIDE RECORDS SUMMARY | 2024-10-06 06:18 | XMS_ITS | Encounter Summary ---
[facility] Organization [facility] Address [address] [place] [id number] Care Team Providers Care Microfilm Technician Name Role Phone Ivyashlyn Norma FERNÁNDEZ Primary Care Provider + [phone] Encounter Details Date Type Department Care Team (Late st Contact Info) Description 09/02/2024 Telephone [facility] OBGYN [address] [address] Staci Jain MD [address] [place] [id number] Social History Tobacco Use Types Packs/Day Years Used Date Smoking Tobacco: Never Smokeless Tobacco: Never Alcohol Use Standard Drinks/Week Comments Never 0 (1 standard drink = 0.6 oz pur e alcohol) [facility] Utilities Answer Date Recorded In the past 12 months has [employer], [employer], oil, or water [employer] threatened to shut off services in [...] and heating? Not hard at all 05/28/2024 [facility] of Occupat ional Health - [...] PM EDT She just got [facility] and they gave her a total 10 MLE of K+ and 3 units of Mag and 2 liters of LR. She has decided to transfer care to [facility] as it iscloser to her like 15 min away. She wants you (Dr. Jain) to know this has nothing to you but rather the nurses and alliance consultant doctor did not relay the labs to you in a faster fashion. She said you can call her if you want and she is not angry. Dr. Jain was notified. * Telephone Encounter - Frederick Gruber RN - 09/02/2024 3:10 PM EDT NitroSellt message sent to the pt regarding outpt infusion apt tomorrow at [place]. documented in this encounter Plan of Treatment Upcoming Encounters Date Type Department Care Team (Late st Contact Info) Description 01/20/2025 3:30 PM EST Office Visit [facility] GASTR[facility] [address] [place] [address] [place] [address] Robbin Escalante MD [address] [facility] [address] [place] [address] documented as of this encounter Visit Diagnoses Not on filedocumented in this encounter Additional Health Concerns Assessment Noted Time PHQ-2 Depression Total Score: 2 05/28/19 25 4:39 PM EDT documented as of this encounter Care Teams Microfilm Technician Relationship Specialty Start Date End Date Norma Friedman APRN [address] [place] [address] [place] [address] PCP - General Family Medicine 05/14/24 documented as of this encounter
--- OUTSIDE RECORDS SUMMARY | 2024-10-06 06:18 | XMS_ITS ---
Author Organization [facility] Address [address] [place] [address] Care Team Providers Care Field Sales Manager Name Role Phone Norma Friedman APRN Primary Care Provider Motherhood Connection Status:Engaged (Active) Start date:05/23/2024 Enrollment date:05/23/2024 Case Team Name Relationship Phone Bindu Castellon RN Nurse Navigator Christy Zabala RN(Responsible Staff) Nurse Navig ator Continued Care and Services Coordination
--- OUTSIDE RECORDS SUMMARY | 2024-10-06 06:18 | XMS_ITS ---
Author Organization [facility] Address [address] [place] [address] Care Team Providers Care Insights Strategist Name Role Phone Unavailable Primary Care Provider Unavailabl e Transplant Episode Kidney Potential Donor [facility] ([place], [place]) - [facility] Referred on 05/03/2022 Marked as Deferred on 05/04/2022 Reason: Other Kidney CoordinatorNadine Augustin R.N. Phone: N/A Fax: N/A Email: N/A Care Team Name Role Phone Fax Email Nadine Augustin R.N. Kidney Coordinator N/A N/A N/A Events Pre-Donation Referred: 05/03/2022
--- OUTSIDE RECORDS SUMMARY | 2024-10-06 06:18 | XMS_ITS | Encounter Summary ---
[facility] Address [address] [place] [address] Care Team Providers Care Crime Laboratory Analyst Name Role Phone Elder Norma FERNÁNDEZ Primary Care Provider + [phone] Encounter Details Date Type Department Care Team (Latest Contact Info) Description 08/19/2024 Travel Social History Tobacco Use Types Packs/Day Years Used Date Smoking Tobacco: Never Smokeless Tobacco: Never Alcohol Use Standard Drinks/Week Comments Never 0 (1 standard drink = 0.6 oz pur e alcohol) [facility] Utilities Answer Date Recorded In the past 12 months has [employer], gas, oil, or water company threatened [...] at all 05/28/2024 [facility] [place] of Occupat ional Health - Occupational Stress [...] 2:34 PM EDT Nneka Cross RN * [place] Suicide Severity Rating Scale (Screener/Recent Self-Report) Question Answer Date of Assessment Author 6. Suicidal Behavior (Lifetime) No 2:34 PM EDT Nneka Cross RN documented as of this encounter Plan of Treatment Upcoming Encounters Date Type Department Care Team (Late st Contact Info) Description 01/20/2025 3:30 PM EST Office Visit [facility] GASTROENTEROLOGY [address] [address] Robbin Escalante MD [address] [address] documented as of this encounter Visit Diagnoses Not on filedocumented in this encounter Additional Health Concerns Assessment Noted Time PHQ-2 Depression Total Score: 2 05/28/19 25 4:39 PM EDT documented as of this encounter Care Teams Crime Laboratory Analyst Relationship Specialty Start Date End Date Norma Friedman APRN [address] [place] [address] [place] [address] PCP - General Family Medicine 05/14/24 documented as of this encounter
--- OUTSIDE RECORDS SUMMARY | 2024-10-06 06:18 | XMS_ITS | Encounter Summary ---
Author Organization [facility] Address [address] [place] [id number] Care Team Providers Care Quality Control Tech Raw Materials Name Role Phone Ivyashlyn Norma FERNÁNDEZ Primary Care Provider + [phone] Encounter Details Date Type Department Care Team (Late st Contact Info) Description 08/28/2024 Telephone [facility] OBGYN [address] [address] Staci Jain MD [address] [place] [id number] Social History Tobacco Use Types Packs/Day Years Used Date Smoking Tobacco: Never Smokeless Tobacco: Never Alcohol Use Standard Drinks/Week Comments Never 0 (1 standard drink = 0.6 oz pur e alcohol) [facility] Utilities Answer Date Recorded In the past 12 months has [employer], [employer], oil, or water [employer] threatened to shut off services in your [...] and heating? Not hard at all 05/28/2024 [facility] of Occupat ional Health - Occupational [...] GED or equivalent No 05/28/2024 Preferred Language Setswana 05/28/2024 PHQ-2 Answer Date Recorded Patient Health [...] sit with a family member admitted to [facility] today and does not know if she can make it back for labs (BMP). She does have an appt in [facility] at 10 am tomorrow. Advisedthat it would [...] states she was supposed to come into [place] office today to have labs drawn however sheis currently hung up at [facility] is wondering if she could just have labs drawn there? documented in this encounter Plan of Treatment Upcoming Encounters Date Type Department Care Team (Late st Contact Info) Description 01/20/2025 3:30 PM EST Office Visit [facility]STR[facility]OLOGY 1720 [facility] [address] [place] [address] Robbin Escalante MD 1720 [facility] [address] [place] [address] documented as of this encounter Visit Diagnoses Not on filedocumented in this encounter Additional Health Concerns Assessment Noted Time PHQ-2 Depression Total Score: 2 05/28/19 25 4:39 PM EDT documented as of this encounter Care Teams Quality Control Tech Raw Materials Relationship Specialty Start Date End Date Norma Friedman APRN [address] [place] [address] [place] [address] PCP - General Family Medicine 05/14/24 documented as of this encounter
--- OUTSIDE RECORDS SUMMARY | 2024-10-06 06:18 | XMS_ITS | Encounter Summary ---
[facility] [address] [place] [id number] Care Team Providers Care Guide Travel Name Role Phone Elder Norma FERNÁNDEZ Primary Care Provider + [phone] Encounter Details Date Type Department Care Team (Late st Contact Info) Description 07/07/2024 Results Follow-Up [facility] OBGYN [address] [place] [address] [place] [phone] Kelly Delgado APRN 1700 [facility] [address] [place] [address] Social History Tobacco Use Types Packs/Day Years Used Date Smoking Tobacco: Never Smokeless Tobacco: Never Alcohol Use Standard Drinks/Week Comments Never 0 (1 standard drink = 0.6 oz pur e alcohol) [facility] Utilities Answer Date Recorded In the past 12 months has [employer], gas, oil, or water [employer] threatened to shut off services in your [...] and heating? Not hard at all 05/28/2024 [facility] of Occupat ional Health - Occupational [...] Visit [facility] [address] [address] Robbin Escalante MD [address] [address] documented as of this encounter Visit Diagnoses Not on filedocumented in this encounter Additional Health Concerns Assessment Noted Time PHQ-2 Depression Total Score: 2 05/28/19 25 4:39 PM EDT documented as of this encounter Care Teams Guide Travel Relationship Specialty Start Date End Date Norma Friedman APRN [address] [place] [address] [place] [address] PCP - General Family Medicine 05/14/24 documented as of this encounter
--- OUTSIDE RECORDS SUMMARY | 2024-10-06 06:19 | XMS_ITS | Encounter Summary ---
Author Organization [facility] Address [address] [id number] Care Team Providers Care Field Trainer Name Role Phone Unavailable Primary Care Provider Unavailabl e Encounter Details Date Type Department Care Team (Late st Contact Info) Description 09/17/2024 Telephone Medical Office Building Obstetrics and Gynecology [address] [facility], [address] [place] [address] Josefina Shay RN [facility] [address] [place] [address] Social History Tobacco Use Types Packs/Day Years [...] recently had a full Nephrology work-up at [facility] [place] that was negative and was not interested [...] Description 10/24/2024 8:00 AM EDT Office Visit [facility] [address] [facility] [address] [facility] [address], [address] [place] [address] Nneka Block MD [address] [place] [address] 12/25/2024 1:00 PM EST Office Visit [facility] Nephrology, Bone & Mineral Metabolism [address] [address] [facility] [address] [facility] [address], [address] [place] [address] documented as of this encounter Visit Diagnoses Not on filedocumented in this encounter
--- OUTSIDE RECORDS SUMMARY | 2024-10-06 06:19 | XMS_ITS | Clinical Summary ---
Author Organization Healthcare Address [address] [place] [address] Care Team Providers Care Watch Repairer Name Role Phone Norma Friedman JOLENE Primary Care Provider [phone] Lizz Trinh RN Unavailable Unavailable Allergies Active [...] dermatitis with skin contact Medications Prenat MV-Min w/Oy-Cjkbsd-HMP ( COMPLETE PO) Active potassium chloride CR [...] chew. 60 tablet 1 025 2024 Discontinued Bplazhyp-Dvq-Dc-F A ( 1 + IRON PO) 2024 Discontinued Active Problems Problem Noted Date Diagnosed Date Hypokalemia 09/25/2024 Estimated Date of Delivery Comme nts Yes 12/01/2024 Encounters Date Type Department Care Team Description 09/26/2024 9:06 AM EDT - 09/26/2024 11:59 PM EDT Hospital Encounter Medical Office Building Cardiac Diagnostic Testing Medical Office Building Echo Lab [address] [facility], [address] [place] [address] Palpitations; Syncope and collapse Discharge Disposition: Home or Self Care 09/26/2024 8:00 AM EDT Office Visit [facility] [address] [facility] [address], [address] [place] [address] Nneka Block MD Syncope and collapse (Primary Dx); Atrial fibrillation, unspecified type (CMS/HCC); Palpitations 09/26/2024 Travel 09/25/2024 2:20 PM EDT Office Visit [facility] Nephrology, Bone & Mineral Metabolism [address] [facility] [address], [address] [place] [address] Bill Patrick MD Hypokalemia (Primary Dx) 09/25/2024 Travel 09/23/2024 10:00 AM EDT Office Visit Medical Office Building Obstetrics and Gynecology [address] [facility], [address] [place] [address] Liborio Weller MD Supervision of high risk , antepartum (Primary Dx); Cardiac arrhythmia, unspecified cardiac arrhythmia type 09/23/2024 Travel 09/17/2024 Telephone [facility] Nephrology, Bone & Mineral Metabolism [address], [address] [place] [address] Sherley Gold CNA 09/17/2024 Telephone Medical Office Building Obstetrics and Gynecology [address], [address] [place] [address] Josefina Shay RN 09/14/2024 Telephone [facility] Obstetrics & Gynecology [address] [place] [address] Susi Wren MD 07/22/2024 [facility] [address] [place] [address] Staci Jain MD History of proteinuria syndrome (Primary Dx); care, subsequent , second trimester 07/22/2024 [facility] [address] [place] [address] Sandy Cardenas MD from Last 3 Months [...] more drinks on one occasion? Never 09/23/2024 [place] Depression Scale Answer Date Recorded [place] Depression Scale Total 0 09/23/2024 The thought [...] Description 10/24/2024 8:00 AM EDT Office Visit [facility] [address], [address] [place] [address] Nneka Block MD [address] [place] [address] 12/25/2024 1:00 PM EST Office Visit [facility] Nephrology, Bone & Mineral Metabolism [address] [facility] [address], [address] [place] [address] Health Maintenance Due Date Last Done Comments [facility]-/Child/Adol SDOH Screenings 1991 [facility]-Varicella Vaccines (1 of 2 - 13+ 2-dose series) 2004 [facility]- SDOH Screenings 2009 [facility]-Adult SDOH Screenings 2009 [facility]-Hepatitis B Vaccines (1 of 3 - 19+ 3-dose series) 2010 [facility]-Pap Smear 2012 [facility]-Cervical Cancer Screening 2021 [facility]-HPV/Cotest 2021 PEN-ECUDS-87 Vaccine (2 - season) 2023 05/04/2022 [facility]-Influenza [...] C Screening Completed 01/22/2019 [facility]-Obesity Intervention Completed 025, 09/25/2024, 09/23/2024 [facility]-HIB Vaccines Aged Out No longer [...] PLASMA Routine 09/26/2024 9:32 AM EDT Hypokalemia SSA 52 AND 60 (RO) (YARA) ANTIBODIES, IGG (SO) Routine 09/26/2024 9:32 AM EDT Hypokalemia SSB (LA) (YARA) ANTIBODY, IGG (SO) Routine 09/26/2024 9:32 AM EDT Hypokalemia RHEUMATOID FACTOR, PLASMA Routine 09/26/2024 9:32 AM EDT Hypokalemia ANTINUCLEAR ANTIBODY (JEFFERY) WITH HEP-2 SUBSTRATE, IGG BY IFA (SO) Routine 09/26/2024 9:32 AM EDT Hypokalemia ECG [...] Chloride, Urine 25 mmol/L 2:03 PM EDT [facility] Urine Urine specimen obtained by clean catch procedure / Unknown Non-blood Collection / Unknown 09/26/2024 10:07 AM EDT 09/26/2024 10:07 AM EDT us Bill Patrick MD LAB URINE ORDERABLES Final Resul t Performing Organization Address City/[facility]/ZIP Co de Phone Number [facility] [address] [place] [address] * Protein, Random, Urine with Creatinine (09/26/2024 10:03 AM EDT) Protein, Urine 26 mg/dL 09/26/2024 12:08 PM EDT [facility] Creatinine, Urine 199 mg/dL 09/26/2024 12:08 PM EDT [facility] Protein/Creati nine Ratio 0.1 mg/mg Creat 09/26/2024 12:08 PM EDT [facility] Urine Urine specimen obtained by clean catch procedure / Unknown Non-blood Collection / Unknown 09/26/2024 10:03 AM EDT 09/26/2024 10:04 AM EDT us Bill Patrick MD LAB URINE ORDERABLES Final Resul t Performing Organization Address [facility] Co de Phone Number [facility] [address] [place] [address] * Sodium, urine, random (09/26/2024 10:02 AM EDT) Sodium, Urine 110 mmol/L 09/26/2024 11:55 AM EDT [facility] Urine Urine specimen obtained by clean catch procedure / Unknown Non-blood Collection / Unknown 09/26/2024 10:02 AM EDT 09/26/2024 10:02 AM EDT Result Jaden Patrick MD LAB URINE ORDERABLES Final Resul t Performing Organization Address City/[facility]/ZIP Co de Phone Number [facility] [address] [place] [address] * Potassium, urine, random (09/26/2024 10:02 AM EDT) Potassium, Urine 43 mmol/L 09/26/2024 11:55 AM EDT [facility] Urine Urine specimen obtained by clean catch procedure / Unknown Non-blood Collection / Unknown 09/26/2024 10:02 AM EDT 09/26/2024 10:02 AM EDT us Bill Patrick MD LAB URINE ORDERABLES Final Resul t Performing Organization Address City/[facility]/ZIP Co de Phone Number [facility] [address] [place] [address] * Osmolality, urine (09/26/2024 10:02 AM EDT) Osmolality, Urine 404 50 - 1,200 mOsm/kg 09/26/2024 1:48 PM EDT [facility] Urine Urine specimen obtained by clean catch procedure / Unknown Non-blood Collection / Unknown 09/26/2024 10:02 AM EDT 09/26/2024 10:02 AM EDT us Bill Patrick MD LAB URINE ORDERABLES Final Resul t Performing Organization Address City/[facility] [place] [address] * SSA 52 and 60 (Ro) (YARA) Antibodies, IgG (09/26/2024 9:32 AM EDT) SSA-52 (RO52) (YARA) Antibody, IgG 2 0 - 40 AU/mL 09/28/2024 5:47 PM EDT [facility] ([facility]) SSA-60 (RO60) (YARA) Antibody, IgG 0 0 - 40 AU/mL 09/28/2024 5:47 PM EDT [facility] ([facility]) Serum 09/26/2024 9:32 AM EDT 09/26/2024 9:32 AM EDT Narrative [facility] ([facility]) - 09/28/2024 5:47 PM EDT INTERPRETIVE INFORMATION: [...] AU/mL or Greater .......... Positive Performed By: [facility] [address] [place], [place] [id number] Chain Offbearer: Brandon Bell MD, PhD CLIA Number: [id number] Bill Patrick MD LAB REF LAB BLOOD AND FLUID ORD Final Result [facility]) [address] [place], [place] [id number] * SSB (LA) (YARA) ANTIBODY, IGG (09/26/2024 9:32 AM EDT) SSB (LA) (YARA) Antibody, IgG 0 0 - 40 AU/mL 09/28/2024 5:47 PM EDT [facility]) Serum Venous blood specimen / Unknown 09/26/2024 9:32 AM EDT 09/26/2024 9:32 AM EDT Narrative [facility]) - 09/28/2024 5:47 PM EDT INTERPRETIVE INFORMATION: [...] (PSS) also have this antibody. Performed By: [facility] [address] [place] [id number] Chain Offbearer: Brandon Bell MD, PhD CLIA Number: [id number] Bill Patrick MD LAB BLOOD ORDERABLES Final Resul t Performing Organization Address City/[facility]/ZIP Co de Phone Number [facility]) [address] [place] [address] * Rheumatoid factor, plasma (09/26/2024 9:32 AM EDT) Rheumatoid Factor, Plasma <10 <14 IU/mL 09/26/2024 1:49 PM EDT [facility] Blood Venous blood specimen / Unknown Venipuncture / Unknown 09/26/2024 9:32 AM EDT 09/26/2024 9:32 AM EDT Bill Ptarick MD LAB BLOOD ORDERABLES Final Resul t [facility] [address] [place] [address] * Antinuclear Antibody (JEFFERY), HEp-2, IgG (09/26/2024 9:32 AM EDT) JEFFERY INTERPRETIVE COMMENT See Note 09/28/2024 5:13 PM EDT [facility] ([facility]) Anti Nuc Ab Screen <1:80 <1:80 09/28/2024 5:13 PM EDT [facility] ([facility]) Blood Venous blood specimen / Unknown Venipuncture / Unknown 09/26/2024 9:32 AM EDT 09/26/2024 9:32 AM EDT Narrative [facility]) - 09/28/2024 5:13 PM EDT INTERPRETIVE INFORMATION: [...] rings, and cytoplasmic speckled patterns. Performed By: [facility] [address] [place] [address] Chain Offbearer: Brandon Bell MD, PhD CLIA Number: [id number] us Bill Patrick MD LAB BLOOD ORDERABLES Final Resul t Performing Organization Address City/[facility]/ZIP Co de Phone Number [facility] ([facility]) [address] [place] [address] * (ABNORMAL) Osmolality (09/26/2024 9:32 AM EDT) Osmolality, Serum 273(L) 275 - 295 mOsm/Kg 09/26/2024 2:10 PM EDT [facility] Blood Venous blood specimen / Unknown Venipuncture / Unknown 09/26/2024 9:32 AM EDT 09/26/2024 9:32 AM EDT us Bill Patrick MD LAB BLOOD ORDERABLES Final Resul t [facility] [address] [place] [address] * (ABNORMAL) Renal function panel (09/26/2024 9:32 AM EDT) Pathologist [facility] Glucose, Plasma 87 74 - 99 mg/dL 09/26/2024 12:24 PM EDT [facility] BUN, Plasma 5(L) 7 - 21 mg/dL 09/26/2024 12:24 PM EDT [facility] Creatinine, Plasma 0.72 0.60 - 1.10 mg/dL 09/26/2024 12:24 PM EDT [facility] BUN/Creatinine Ratio 7 09/26/2024 12:24 PM EDT [facility] Sodium, Plasma 135(L) 136 - 145 mmol/L 09/26/2024 12:24 PM EDT [facility] Potassium, Plasma 3.1(L) 3.6 - 4.9 mmol/L 09/26/2024 12:24 PM EDT [facility] Chloride, Plasma 95(L) 97 - 107 mmol/L 09/26/2024 12:24 PM EDT [facility] CO2, Plasma 26 22 - 29 mmol/L 09/26/2024 12:24 PM EDT [facility] Anion Gap 14 6 - 16 mmol/L 09/26/2024 12:24 PM EDT [facility] Total Calcium, Plasma 9.4 8.9 - 10.2 mg/dL 09/26/2024 12:24 PM EDT [facility] Phosphorus, Plasma 3.5 2.5 - 4.5 mg/dL 09/26/2024 12:24 PM EDT [facility] Albumin, Plasma 3.6 3.5 - 5.2 g/dL 09/26/2024 12:24 PM EDT [facility] eGFRcr 113.4 mL/min/1.7 3m*2 09/26/2024 12:24 PM EDT [facility] Comment:Reported eGFRcr in m L/min/1.73m2 is based the CKD-EPI 2020 equation that does not use a race coefficient. Blood Venous blood specimen / Unknown Venipuncture / Unknown 09/26/2024 9:32 AM EDT 09/26/2024 9:32 AM EDT Bill Patrick MD LAB BLOOD ORDERABLES Final Resul t Performing Organization Address [facility] de Phone Number [facility] [address] [place] [address] * ECG Adult (Now - Performed in your clinic) (09/26/2024 8:21 AM EDT) EKG DIAGNOSIS CLASS Normal MUSE ECG Ventricular Rate 84 BPM MUSE ECG Atrial Rate 84 BPM MUSE ECG WI Interval 148 ms MUSE ECG QRSD Interval 74 ms MUSE ECG QT Interval 374 ms MUSE ECG QTC Interval 441 ms MUSE ECG P [place] 60 degrees MUSE ECG R [place] 36 degrees MUSE ECG T Wave Hamm[place] 55 degrees MUSE ECG Diagnosis Normal sinus rhythm with sinus arrhythmia MUSE ECG Diagnosis Normal ECG MUSE ECG Diagnosis MUSE ECG Diagnosis Confirmed by Abad South ([id number]) on 09/26/2024 12:13:59 PM MUSE ECG 09/26/2024 8:21 AM EDT 09/26/2024 12:13 PM EDT us Nneka Block MD ECG ORDERABLES Final Resu lt Performing Organization Address [facility] de Phone Number MUSE ECG * (ABNORMAL) POCT Urinalysis Dipstick (09/23/2024 10:54 AM EDT) POCT Urine Color Yellow POCT Urine Clarity Clear POCT Glucose Urine Negative Negative mg/dL POCT Bilirubin, Urine Small(A) Negative POCT Ketones, Urine 40(A) Negative mg/dL POCT Specific [place], Urine 1.015 POCT Blood, Urine Negative Negative POCT pH, Urine >=9.0(A) 5.0 to 8.0 POCT Protein, Urine 100(A) Negative mg/dL POCT Urobilinogen, Urine 0.2 0.2, 1 E.U./dL POCT Nitrite, Urine Negative Negative POCT Leukocyte Esterase, Urine Negative Negative Test Strip Lot Number [id number] Test Strip Lot Expiration 07/2025 Urine Urine [...] 01/22/2019 12:12 PM EST Pradip Damico APRN, TERRY LAB BLOOD ORDERABLES Fin al Result Performing Organization Address [facility] de Phone Number [facility] * Hepatitis C Antibody (01/22/2019 9:57 AM EST) Hepatitis C Antibody NEGATIVE Reference Range: Negative [facility] 01/22/2019 9:57 AM EST 01/22/2019 12:12 PM EST Pradip Damico APRN, TERRY LAB BLOOD ORDERABLES Fin al Result Performing Organization Address [facility] de Phone Number SUNQUEST from Last 3 Months or Most Recently Relevant to Health Maintenance Insurance [facility] MED[facility] Care Teams Watch Repairer Relationship Specialty Start Date End Date Norma Friedman APRN [address] [place] [id number] PCP - General 09/23/24 Lizz Trinh, RN [facility] Registered Nurse Cardiology 09/26/24
--- OUTSIDE RECORDS SUMMARY | 2024-10-06 06:19 | XMS_ITS | Clinical Summary ---
Author Organization [facility] Address [address] [place] [address] Care Team Providers Care Apparatus Operator Name Role Phone Norma Friedman APRN Primary Care Provider + [phone] Allergies Active Allergy Reactions Criticality Noted Date [...] Type Department Care Team Description 5 Documentation [facility] LABOR DELIVERY [address] [place] [address] Christy Zabala RN 5 Results Follow-Up [facility] OBGYN [address] [place] [address] Rob Wharton MD 5 Telephone [facility] OBGYN [address] [facility] [address] [place] [address] Rob Wharton MD 5 10:00 AM EDT Routine [facility] OBGYN [address] [place] [address] Rob Wharton MD GA: 26w4d 5 Travel 5 Telephone [facility] OBGYN [address] [address] Rob Wharton MD 5 Telephone [facility] OBGYN [address] [place] [address] Rob Wharton MD 5 1:44 PM EDT Anesthesia Event [facility] ENDO SUITES [address] [place] [address] Akash Anguiano MD [place]ham, John, CRNA 5 1:33 PM EDT - 5 2:05 PM EDT Surgery [facility] ENDO SUITES [address] [place] [address] Blu Alvarado MD ESOPHAGOGASTRODUODENOSCOPY [[id number] (CPT )] 5 1:59 PM EDT - 5 4:28 PM EDT Hospital Encounter [facility] ANTEPARTUM [address] [place] [address] Rob Wharton MD Brunner, Mark I, MD Dysphagia, unspecified type (Primary Dx) Discharge Disposition: Home or Self Care 5 10:15 AM EDT Routine [facility] OBGYN [address] [place] [address] Jacey Mathews, ACETYLENE PLANT OPERATOR GA: w 5 Telephone [facility] OBGYN [address] [place] [address] Jacey Mathews, ACETYLENE PLANT OPERATOR 5 Travel 5 Patient Outreach [facility] LABOR DELIVERY [address] [place] [address] Christy Zabala RN 5 9:10 AM EDT Routine [facility] OBGYN [address] [facility] [address] [place] [address] Rob Wharton MD [place]: 5 8:00 AM EDT Office Visit [facility] MATERNAL MEDICINE [address] [facility] [address] [place] [address] Sebastian Larsen MD History of prior with small for gestational age (Primary Dx) 5 7:44 AM EDT - 5 11:59 PM EDT Hospital Encounter [facility] US PER DIAG CTR [address] [place] [address] Kelly Delgado, ACETYLENE PLANT OPERATOR care, antepartum, unspecified ; High risk due to history of labor, antepartum; History of prior with small for gestational age Discharge Disposition: Home or Self Care 5 Travel 5 Results Follow-Up [facility] OBGYN [address] [place] [address] [place] [address] Kelly Delgado APRN from Last 3 Months Family History Medical [...] 0.6 oz pur e alcohol) [facility] Utilities Answer Date Recorded In the [...] at all 05/28/2024 [facility] [place] of Occupat ional Health - [...] Description 01/20/2025 3:30 PM EST Office Visit [facility] GASTROENTEROLOGY [address] [address] Robbin Escalante MD [address]20 [facility] [address] [place] [address] Health Maintenance Due Date Last [...] PM EDT [facility] Routine 08/19/2024 3:25 PM EDT [...] second trimester [facility] Routine 07/22/2024 9:10 AM EDT care, antepartum, unspecified High risk due to history of labor, antepartum History of prior with small for gestational age HEPATITIS C ANTIBODY Routine 04/12/2024 from Last [...] 08/30/2024 6:09 AM EDT Performed at: [address] [place] [id number] Hot Roll Laminator: Kevin Harman MD, Phone: [phone] Patient Fasting: N Rob Wharton MD LAB BLOOD ORDERABLES Final Result [facility] (AMBULATORY) [address] [place] [address], [facility] [address] [place] [address], [place] [phone] * (ABNORMAL) Comprehensive Metabolic Panel (08/29/2024 11:05 AM EDT) Only the most recent of2 resultswithin the time period is included. [facility] Glucose 72 65 - 99 mg/dL [...] - 08/30/2024 6:09 AM EDT Performed at: [address] [id number] Hot Roll Laminator: Kevin Harman MD, Phone: [phone] Patient Fasting: N us Rob Wharton MD LAB BLOOD ORDERABLES Final Result [facility] (AMBULATORY) [address] [place] [address], [place] [phone] [facility] [address] [place] [address], [place] [phone] * (ABNORMAL) POC Urinalysis Dipstick (08/29/2024 10:13 AM EDT) Only the most recent of2 resultswithin the time period is included. Glucose, UA Negative Negative mg/dL [facility] LABORATORY Protein, POC Trace(A) Negative mg/dL [facility]ORY Urine 08/29/2024 10:1 3 AM EDT Rob Wharton MD POINT OF CARE TEST OR DERABLES Final Result [facility] LABORATORY
[address] [place] [address], [place] [phone] * BH AN ETT AIRWAY (08/20/2024 2:02 [...] symmetric chest rise and fall us Liborio Campoham OCCUPATIONAL THERAPY ASSISTANT ANESTHESIA ORDERABLES Final Res ult * Tissue Pathology Exam (08/20/2024 1:55 PM EDT) Case Report Surgical Pathology Report Case: [id number] Authorizing Provider: Blu Alvarado MD Collected: 08/20/2024 [...] Result [facility] LABORATORY
[address] [place] [address], * Upper GI Endoscopy (08/20/2024 1:09 PM [...] - 15.0 mmol/L 08/20/2024 6:13 AM EDT [facility] LABORATORY eGFR 126.6 >60.0 mL/min/1.7 3 08/20/2024 6:13 AM EDT [facility] LABORATORY Blood Venipuncture / Unknown 08/20/2024 5:25 AM EDT 08/20/2024 5:46 AM EDT Narrative [facility] LABORATORY - 08/20/2024 6:13 AM [...] Final Resu lt Performing Organization Address City/[facility]/ZIP Co de Phone Number [facility] LABORATORY
[address] [place] [address], * (ABNORMAL) Potassium (08/19/2024 8:53 PM EDT) Potassium 2.7(L) 3.5 - 5.2 mmol/L 08/19/2024 9:20 PM EDT [facility] LABORATORY Blood Venipuncture / Unknown 08/19/2024 8:53 PM EDT 08/19/2024 9:04 PM EDT Kt Fan DO LAB BLOOD ORDERABLES Final Result Performing Organization Address City/[facility]/ZIP Co de Phone Number [facility] LABORATORY
[address] [place] [address], * ABO RH Specimen Verification (08/19/2024 4:34 PM EDT) ABO Type O 08/19/2024 7:39 PM EDT [facility] BB LABORATORY RH type Positive 08/19/2024 7:39 PM EDT [facility] BB LABORATORY Blood Venipuncture / Unknown 08/19/2024 4:34 PM EDT 08/19/2024 4:53 PM EDT Rob Wharton MD BLOOD BANK TEST ORDER FRANCO Final Result [facility] LABORATORY
[address] [place] [id number], * [facility] (08/19/2024 3:25 PM EDT) Only the most recent of2 resultswithin the time period is included. Anatomical Region Laterality Modality Ultrasound 08/19/2024 3:09 PM EDT Narrative 08/19/2024 4:54 PM EDT PAT NAME: CAROLE GIARRD MED REC#: [id number] DA: [id number] PAT GEND: F PAT TYPE: E EXAM TRAVIS: [id number] REF PHYS ROB WHARTON Comparison Studies The [...] EFW (oz) 9 oz EFW by: Hadlock ([id number]) Extended Cav. septi pel. tr 4.7 mm Pin Pusher 3.8 mm CM 7.5 mm 84% Nicolaides [...] Heart / Thorax 3-vessel view: Appears normal 3-flidyc-ogqsppj view: Appears normal Stomach: Appears normal Kidneys: [...] in 4wks for growth. Coding ======= Description: 34793-18 Follow Up [employer] Head Inspector: RT Annetta Hartmann , [facility] Physician: Jo Chappell MD Electronically signed by: Jo Chappell MD at: 16:54 Procedure Note Jo Chappell MD - 08/19/2024 PAT NAME: CAROLE GIRARD MED REC#: [id number] DA: 1990 PAT GEND: F PAT TYPE: E EXAM TRAVIS: [id number] REF PHYS ROB WHARTON Comparison Studies The findings of this study are compared to the prior ultrasound studydated 07/22/24 Patient Status Inpatient Indication ======== History of c/s x1. History of . Vaginal bleeding. Maternal Assessment Cwkuem588 cm Height (ft)5 ft Height (in)4 in Vslunu56 kg Weight (lb)158 lb BMI27.31 kg/m Method ======= Transabdominal ultrasound examination. View: Limited by patient bodyhabitus ========= Love . Number of fetuses: 1 Dating ====== Method of dating:based on stated DUSTY GA by prior gjcskqacxs61 w + 1 d DUSTY by prior [...] Hadlock Femur44.9 mm 24w 6d 27% Hadlock Bmdpzol15.3 mm 25w 3d 50% Jamal HC / AC1.16 TDT348 g 24w 2d 16% Hadlock EFW (lb)1 lb EFW (oz)9 oz EFW by:Hadlock ([id number]) Extended Cav. septi pel. tr4.7 mm Vp3.8 mm CM7.5 mm 84% Nicolaides Head / Face / Neck Cephalic index0.71 <1% Nicolaides Extremities / Bony Struc FL / BPD0.78 FL / HC0.20 FL / AC0.23 Other Structures KGI610 bpm General Evaluation Cardiac activity present. FHR [...] normal Heart / Thorax 3-vessel view:Appears normal 2-emjkes-gtnrrrq view:Appears normal Stomach:Appears normal Kidneys:Appears normal Bladder:Appears normal Gender:female Wants to know gender:yes Maternal Structures Uterus / Cervix Cervix:Visualized Approach:Transabdominal Cervical sxkatt33.9 mm Doppler Arterial Umbilical A PI1.01 32% [...] office in 4wks for growth. Coding ======= Description:21549-21 Follow Up [place] Head Inspector: RT Annetta Hartmann , [facility] Physician: Jo Chappell MD Electronically signed by: Jo Chappell MD at: 16:54 us Kt Fan DO G US ORDERABLES Final Res ult * Urinalysis, [...] lt [facility] LABORATORY
[address] [place] [address], * (ABNORMAL) Urinalysis With Microscopic If Indicated (No Culture) - Urine, Clean Catch (08/19/2024 3:02 PM EDT) Color, UA Yellow Yellow, Straw 08/19/2024 3:33 PM EDT [facility] LABOR[facility] Appearance, UA Clear Clear 08/19/2024 3:33 PM EDT [facility] pH, UA >=9.0(H) 5.0 - 8.0 08/19/2024 3:33 PM EDT [facility] LABOR[facility] Specific [place], UA 1.018 1.005 - 1.030 08/19/2024 3:33 [...] lt [facility] LABOR[facility]ORY
[address] [place] [address], * (ABNORMAL) CBC Auto Differential (08/19/2024 3:02 [...] - 45.3 % 08/19/2024 3:23 PM EDT [facility] Monocyte % 7.6 5.0 - 12.0 % 08/19/2024 3:23 PM EDT [facility] Eosinophil % 0.7 0.3 - 6.2 % 08/19/2024 3:23 PM EDT [facility] Basophil % 0.2 0.0 - 1.5 % 08/19/2024 3:23 PM EDT [facility] Immature Grans % 0.3 0.0 - 0.5 % 08/19/2024 3:23 PM EDT [facility] Neutrophils, Absolute 6.14 1.70 - 7.00 10*3/mm3 08/19/2024 3:23 PM EDT [facility] Lymphocytes, Absolute 2.24 0.70 - 3.10 10*3/mm3 08/19/2024 3:23 PM EDT [facility] Monocytes, Absolute 0.70 0.10 - 0.90 10*3/mm3 08/19/2024 3:23 PM EDT [facility] Eosinophils, Absolute 0.06 0.00 - 0.40 10*3/mm3 08/19/2024 3:23 PM EDT [facility] Basophils, Absolute 0.02 0.00 [...] Result [facility]
[address] [place] [address], * Protein / Creatinine Ratio, Urine - Urine, Clean Catch (08/19/2024 3:02 PM EDT) Protein/Creati nine Ratio, Urine 126.1 0.0 - 200.0 mg/G Crea 08/20/2024 12:47 AM EDT [facility] Creatinine, Urine 148.3 mg/dL 08/20/2024 12:47 AM EDT [facility] Total Protein, Urine 18.7 mg/dL 08/20/2024 12:47 AM EDT [facility] Urine Urine specimen obtained by clean catch procedure / Unknown Collection / Unknown 08/19/2024 3:02 PM EDT 08/19/2024 4:26 PM EDT Kt Fan DO URINE ORDERABLES Final Resu lt [facility]
[address] [place] [address], * Type & Screen (08/19/2024 3:02 PM EDT) ABO Type O 08/19/2024 3:51 PM EDT [facility] BB LABORATORY RH type Positive 08/19/2024 3:51 PM EDT [facility] LABORATORY Antibody Screen Negative 08/19/2024 3:51 PM EDT [facility] T&S Expiration Date 08/22/2024 11:59:59 PM 08/19/2024 3:51 PM EDT [facility] Blood Line / Unknown 08/19/2024 3: 02 PM EDT 08/19/2024 3:15 PM EDT Kt Fan DO BLOOD BANK TEST ORDERABLES Edited Result - Final Performing Organization Address City/[facility]/ZIP Co de Phone Number [facility]
[address] [place] [address], * (ABNORMAL) Magnesium (08/19/2024 3:02 PM EDT) Magnesium 1.5(L) 1.6 - 2.6 mg/dL 08/19/2024 5:12 PM EDT [facility] Blood Line / Unknown 08/19/2024 3: 02 PM EDT 08/19/2024 3:10 PM EDT us Kt Fan DO LAB BLOOD ORDERABLES Final Result [facility]OR[facility]
[address] [place] [address], * Lipase (08/19/2024 3:02 PM EDT) Lipase 13 13 - 60 U/L 08/19/2024 3:36 PM EDT [facility] Blood Line / Unknown 08/19/2024 3: 02 PM EDT 08/19/2024 3:10 PM EDT Kt Fan DO LAB BLOOD ORDERABLES Final Result [facility]
[address] [place] [address], * Amylase (08/19/2024 3:02 PM EDT) Pathologist [facility] Amylase 73 28 - 100 U/L 08/19/2024 3:36 PM EDT [facility] Blood Line / Unknown 08/19/2024 3: 02 PM EDT 08/19/2024 3:10 PM EDT Kt Fan DO LAB BLOOD ORDERABLES Final Result Performing Organization Address [facility] de Phone Number [facility]
[address] [place] [address], * Hepatitis C Antibody (04/12/2024) Pathologist [facility] Hep C Virus Ab negative Blood [facility] Provider LAB BLOOD ORDERABLES Lena l Result from Last 3 Months or Most Recently Relevant to Health Maintenance Insurance [facility] Care Teams Apparatus Operator Relationship Specialty Start Date End Date Norma Friedman APRN [address] [place] G3 RAFAELA APPIAH [address] PCP - General Family Medicine 05/14/24
--- OUTSIDE RECORDS SUMMARY | 2024-10-06 06:19 | XMS_ITS | Encounter Summary ---
Author Organization [employer] ([place], [place], [place], [place]) Address [address] [place] [address] Care Team Providers Care Cook Cold Meat Name Role Phone Unavailable Primary Care Provider Unavailabl e Encounter Details Date Type Department Care Team (Late st Contact Info) Description 07/17/2019 Transcribed Document [facility] Family Medicine [address] [place] [address] ProviderEleno MD [address] [place], [place] [address] Social History Tobacco Use Types Packs/Day Years [...] On: 07/17/2019 19:17 EDT by KARLENE MCKINLEY travel administrator Process Patient Disposition : AMA/Elope/LWBS KARLENE MCKINLEY RN - 07/17/2019 23:04 EDT LWBS/Elopement/AMA Patient Left Prior To Medical Screening : Unseen Patient Elopement : Yes Provider Notified : No KARLENE MCKINLEY RN - 07/17/2019 23:04 EDT Electronically signed by Quintin Forte Conversion Dental Laboratory Technician Apprentice Cerner at 05/27/2022 5:18 PM CDT documented in this encounter Plan of Treatment Not on file documented as of this encounter Visit Diagnoses Not on filedocumented in this encounter
--- OUTSIDE RECORDS SUMMARY | 2024-10-06 06:19 | XMS_ITS | Encounter Summary ---
Author Organization Healthcare Address [address] [place] [address] Care Team Providers Care Physical Medicine Specialist Name Role Phone Unavailable Primary Care Provider Unavailabl e Reason for Referral * Consultation (Routine) - Closed Specialty Diagnoses / Procedures Referred By Contac t Referred To Contact Nephrology Diagnoses Hypokalemia Liborio Weller MD [address] [facility] [address] [place] [address] Phone: tel: fax: [facility] Nephrology, Bone & Mineral Metabolism [address] [facility], [address] [place] [address] Phone: tel: fax: Referral ID Status Reason Start Date Expiration Date V isits Requested Visits Authorized [id number] Closed Specialty Services Required 09/14/2024 03/16/2026 1 1 Scheduling Instructions Severe hypokalemia in the setting of Encounter Details Date Type Department Care Team (Late st Contact Info) Description 09/14/[address] [facility] Obstetrics & Gynecology [address] [place] [address] Susi Wren MD [address] [place] [address] Social History Tobacco Use Types [...] had an outpatient workup with Nephrology at [facility] that was negative, she was [...] Description 10/24/2024 8:00 AM EDT Office Visit [facility] [place] [address] [facility], [address] [place] [address] Nneka Block MD [address] [place] [address] 12/25/2024 1:00 PM EST Office Visit [facility] Nephrology, Bone & Mineral Metabolism [address] [facility], [address] [place] [address] Scheduled Referrals Name Type Priority Associated Diagnoses Order Schedule Ambulatory referral to Nephrology Clinic Outpatient Referral Routine Hypokalemia 1 Occurrences starting 09/14/2024 until 03/18/2026 documented as of this encounter Visit Diagnoses Diagnosis Hypokalemia- Primary Hypopotassemia documented in this encounter
--- OUTSIDE RECORDS SUMMARY | 2024-10-06 06:19 | XMS_ITS | Encounter Summary ---
[facility] Address [address] [place] [id number] Care Team Providers Care Technical Support Analyst Name Role Phone IvyKade [email or web address] JOLENE Primary Care Provider + [phone] Encounter Details Date Type Department Care Team (Late st Contact Info) Description 09/26/2024 Documentation [facility] LABOR DELIVERY [address] [place] [address] Christy Zabala, RN Social History Tobacco Use Types Packs/Day Years Used Date Smoking Tobacco: Never Smokeless Tobacco: Never Alcohol Use Standard Drinks/Week Comments Never 0 (1 standard drink = 0.6 oz pur e alcohol) [facility] Utilities Answer Date Recorded In [...] hard at all 05/28/2024 [facility] [place] of Occupat ional Health - Occupational [...] Review of chart reveals patient ZAIN to [facility] to continue care. Will plan to review chart around EDC for delivery information. documented in this encounter Plan of Treatment Upcoming Encounters Date Type Department Care Team (Late st Contact Info) Description 01/20/2025 3:30 PM EST Office Visit [facility] GASTROENTEROLOGY [address] [phone] Robbin Escalante MD [address] [address] documented as of this encounter Visit Diagnoses Not on filedocumented in this encounter Additional Health Concerns Assessment Noted Time PHQ-2 Depression Total Score: 2 05/28/19 25 4:39 PM EDT documented as of this encounter Care Teams Technical Support Analyst Relationship Specialty Start Date End Date Norma Friedman APRN [address] [place] G3 RAFAELA APPIAH [address] PCP - General Family Medicine 05/14/24 documented as of this encounter
--- OUTSIDE RECORDS SUMMARY | 2024-10-06 06:19 | XMS_ITS | Clinical Summary ---
Author Organization [employer] ([place], [place], [place], [place]) Address [address] [place] [address] Care Team Providers Care Business Asst Name Role Phone Unavailable Primary Care Provider [...]
--- OUTSIDE RECORDS SUMMARY | 2024-10-06 06:19 | XMS_ITS | Encounter Summary ---
Author Organization Healthcare Address [address] [place] [address] Care Team Providers Care Internal Control Analyst Name Role Phone Norma Friedman APRN Primary Care Provider [phone]- [phone] Encounter Details Date Type Department Care Team [...] more drinks on one occasion? Never 09/23/2024 [place] Depression Scale Answer Date Recorded [place] Depression Scale Total 0 09/23/2024 The thought [...] Description 10/24/2024 8:00 AM EDT Office Visit [facility] [place] [address] [facility], [address] [place] [address] Nneka Block MD [address] [place] [address] 12/25/2024 1:00 PM EST Office Visit [facility] Nephrology, Bone & Mineral Metabolism [address] [facility], [address] [place] [address] documented as of this encounter Visit Diagnoses Not on filedocumented in this encounter Additional Health Concerns Assessment Noted Time A fall risk assessment has been complete d for the patient 09/25/2024 3:05 PM EDT A Body Mass Index follow-up plan has been documented for the patient 10/05/2024 8:54 PM EDT documented as of this encounter Care Teams Internal Control Analyst Relationship Specialty Start Date End Date Norma Friedman APRN [address] [place] [address] PCP - General 09/23/24 documented as of this encounter
--- OUTSIDE RECORDS SUMMARY | 2024-10-06 06:19 | XMS_ITS | Encounter Summary ---
Author Organization Healthcare Address [address] [place] [address] Care Team Providers Care Major Account Representative Name Role Phone Norma Friedman APRN Primary Care Provider [phone]- [phone] Encounter Details Date Type Department Care Team [...] more drinks on one occasion? Never 09/23/2024 [place] Depression Scale Answer Date Recorded [place] Depression Scale Total 0 09/23/2024 The thought [...] Description 10/24/2024 8:00 AM EDT Office Visit [facility] [place] [address] [facility], [address] [place] [address] Nneka Block MD [address] [place] [address] 12/25/2024 1:00 PM EST Office Visit [facility] Nephrology, Bone & Mineral Metabolism [address] [facility], [address] [place] [address] documented as of this encounter Visit Diagnoses Not on filedocumented in this encounter Additional Health Concerns Assessment Noted Time A Body Mass Index follow-up plan has been documented for the patient 09/23/2024 8:28 PM EDT documented as of this encounter Care Teams Major Account Representative Relationship Specialty Start Date End Date Norma Friedman APRN [address] [place] [address] PCP - General 09/23/24 documented as of this encounter
--- OUTSIDE RECORDS SUMMARY | 2024-10-06 06:19 | XMS_ITS | Encounter Summary ---
Author Organization Healthcare Address [address] [place] [address] Care Team Providers Care Rectifier Operator Name Role Phone Norma Friedman HYDRAULIC JACK OPERATOR Primary Care Provider +1- [phone] Lizz Trinh RN Unavailable Unavailable Encounter Details [...] more drinks on one occasion? Never 09/23/2024 [place] Depression Scale Answer Date Recorded [place] Depression Scale Total 0 09/23/2024 The thought [...] Description 10/24/2024 8:00 AM EDT Office Visit [facility] [place] [address] [facility], [address] [place] [address] Nneka Block MD [address] [place] [address] 12/25/2024 1:00 PM EST Office Visit [facility] Nephrology, Bone & Mineral Metabolism [address] [facility], [address] [place] [address] documented as of this encounter Visit Diagnoses Not on filedocumented in this encounter Additional Health Concerns Assessment Noted Time A fall risk assessment has been complete d for the patient 09/26/2024 8:15 AM EDT A Body Mass Index follow-up plan has been documented for the patient 09/27/2024 10:22 AM EDT documented as of this encounter Care Teams Rectifier Operator Relationship Specialty Start Date End Date Norma Friedman APRN [address] [place] [id number] PCP - General 09/23/24 Lizz Trinh, RN [facility] Registered Nurse Cardiology 09/26/24 documented as of this encounter
--- OUTSIDE RECORDS SUMMARY | 2024-10-06 06:19 | XMS_ITS | Encounter Summary ---
Author Organization Healthcare Address [address] [place] [address] Care Team Providers Care Life Guard Name Role Phone Unavailable Primary Care Provider Unavailabl e Encounter Details Date Type Department Care Team (Late Contact Info) Description 09/17/2024 Telephone [facility] Nephrology, Bone & Mineral Metabolism [address] [facility], [address] [place] [address] Sherley Gold, FIELD MARKETING LEAD GS - 7 MAIN MEDICAL-SURGICAL Social History [...] Description 10/24/2024 8:00 AM EDT Office Visit [facility] [place] [address] [facility] [address] [facility], [address] [place] [address] Nneka Block MD [address] [place] [address] 12/25/2024 1:00 PM EST Office Visit [facility] [place] Nephrology, Bone & Mineral Metabolism [address] [facility], [address] [place] [address] documented as of this encounter Visit Diagnoses Not on filedocumented in this encounter
[2024-10-06 06:21] VITALS: BMI 26.4
[2024-10-06 07:39] LABS: Alanine Aminotransferase 74 U/L (12-78); Albumin Level 3.4 g/dl (3.5-5.0); Albumin/Globulin Ratio 1.0 (1.1-1.8); Alkaline Phosphatase 91 U/L (38-126); Anion Gap 9.9 mEq/L (5-15); Aspartate Amino Transferase 68 U/L (14-36); Bilirubin,Total 0.9 mg/dl (0.2-1.3); Blood Urea Nitrogen 4 mg/dl (7-17); Calcium 8.7 mg/dl (8.4-10.2); Carbon Dioxide 30 mmol/L (22.0-30.0); Chloride 95 mmol/L (98-107); Creatinine Clearance Estimated 127 mL/min (50-200); Creatinine,Serum 0.70 mg/dl (0.52-1.04); Estimated Glomerular Filt Rate 96 ml/min (>60); GFR (African American) 117 ML/MIN (>60); Globulin 3.3 g/dL (1.3-3.2); Glucose 81 mg/dl (74-100); Magnesium 1.1 mg/dl (1.6-2.3); Sodium 132 mmol/L (136-145); Total Protein,Serum 6.7 g/dl (6.3-8.2)
[2024-10-06 07:42] LABS: Potassium 2.9 mmoL/L (3.5-5.1)
[2024-10-06 08:29] LABS: Vitamin B12 603 pg/mL (239-931)
[2024-10-06 08:35] VITALS: BP 94/62; PULSE 88; RESP 17; TEMP 37.1; O2SAT 100
[2024-10-06] MEDS: MAGNESIUM SULFATE IN WATER 2 GM/50 ML PIGGYBACK IV ×3 (08:50→10:30)
[2024-10-06 09:04] LABS: Folate 11.00 ng/mL
[2024-10-06] MEDS: POTASSIUM CHLORIDE 20MEQ TAB 40 MEQ PO ×2 (09:32→12:27)
[2024-10-06] MEDS: CALCIUM CARBONATE 500MG CHEWTAB 1000 MG PO (12:27)
[2024-10-06 13:13] LABS: Iron 93 ug/dL (37-170)
[2024-10-06 13:29] LABS: Total Iron Binding Capacity 499 ug/dL (265-497)
[2024-10-06 13:50] LABS: Ferritin 7.32 ng/ml (6.24-137)
[2024-10-06] MEDS: IRON SUCROSE COMPLEX 200 MG in 0.9 % SODIUM CHLORIDE 100 ML 220 MG IV (15:18)
[2024-10-06 16:15] LABS: Alanine Aminotransferase 67 U/L (12-78); Albumin Level 3.0 g/dl (3.5-5.0); Albumin/Globulin Ratio 1.0 (1.1-1.8); Alkaline Phosphatase 77 U/L (38-126); Anion Gap 10.5 mEq/L (5-15); Aspartate Amino Transferase 67 U/L (14-36); Bilirubin,Total 0.7 mg/dl (0.2-1.3); Blood Urea Nitrogen 3 mg/dl (7-17); Calcium 8.2 mg/dl (8.4-10.2); Carbon Dioxide 28 mmol/L (22.0-30.0); Chloride 95 mmol/L (98-107); Creatinine Clearance Estimated 148 mL/min (50-200); Creatinine,Serum 0.60 mg/dl (0.52-1.04); Estimated Glomerular Filt Rate 115 ml/min (>60); GFR (African American) 139 ML/MIN (>60); Globulin 2.9 g/dL (1.3-3.2); Glucose 108 mg/dl (74-100); Potassium 3.5 mmoL/L (3.5-5.1); Sodium 130 mmol/L (136-145); Total Protein,Serum 5.9 g/dl (6.3-8.2)
[2024-10-08 16:19] LABS: Calcium, Ionized 4.9 mg/dL (4.5-5.6)
== END 2024-10-06 16:28 | disposition home or self-care (01) ==
LOC: OBOUT 06:15 → OB 06:15
PROVIDERS: PCP Nurse Practitioner Family; Visit Provider Obstetrics & Gynecology
DX: Z34.83 Encounter for supervision of other normal pregnancy, third trimester (principal); Z36.9 Encounter for antenatal screening, unspecified; Z3A.32 32 weeks gestation of pregnancy
CPT/HCPCS: 59025; 80053; 82330; 82607; 82728; 82746; 83540; 83550; 83735; 99212; G0463; J1756; J3475; J3480

== ENCOUNTER 2024-10-08 10:02 | Observation (INO) | payer OTHER, SELFPAY ==
--- OUTSIDE RECORDS SUMMARY | 2024-08-19 10:15 | XMS_ITS | Encounter Summary ---
Author [facility] Address [address] [place] [address] Care Team Providers Care Assembler Cards And Announcements Name Role Phone Norma Friedman APRN Primary Care Provider + [phone] Reason for Visit * Reason Comments Routine Visit Encounter Details Date Type Department Care Team (Late st Contact Info) Description 08/19/2024 10:15 AM EDT Routine [facility] OBGYN [address] [place] [address] Jacey Mathews, DRINK MIXER [address] [place] [address] GA: 25w1d Social History Tobacco Use Types Packs/Day Years Used Date Smoking Tobacco: Never Smokeless Tobacco: Never Alcohol Use Standard Drinks/Week Comments Never 0 (1 standard drink = 0.6 oz pur e alcohol) [facility] Utilities Answer Date Recorded In the past 12 months has [employer], gas, oil, or water [employer] threatened to shut off services in your [...] hard at all 05/28/2024 [facility] [place] of [facility] an[facility]al Health - Occupational Stress Questionnaire Answer Date [...] GED or equivalent No 05/28/2024 Preferred Language Paraguayan 05/28/2024 PHQ-2 Answer Date Recorded Patient Health [...] this encounter Progress Notes * Jacey Mathews, DRINK MIXER - 08/19/2024 10:15 AM EDT Images from [...] Description 01/20/2025 3:30 PM EST Office Visit [facility] GASTROENTEROLOGY [address] [facility] [address] [place] [address] Robbin Escalante MD [address] [facility] [address] [place] [address] documented as of this encounter Visit Diagnoses Diagnosis Vaginal bleeding in - Primary 25 weeks gestation of documented in this encounter Additional Health Concerns Assessment Noted Time PHQ-2 Depression Total Score: 2 05/28/19 25 4:39 PM EDT documented as of this encounter Care Teams Assembler Cards And Announcements Relationship Specialty Start Date End Date Norma Friedman APRN [address] [place] [address] [place] [address] PCP - General Family Medicine 05/14/24 documented as of this encounter
--- OUTSIDE RECORDS SUMMARY | 2024-08-19 13:59 | XMS_ITS | Encounter Summary ---
[facility] Address [address] [place] [id number] Care Team Providers Care Children'S Program Coordinator Name Role Phone Ivyashlyn Norma FERNÁNDEZ Primary Care Provider + [phone] Reason for Visit * Reason Comments Vaginal Bleeding * Auth/Cert (Routine) Specialty Diagnoses / Procedures Referred By Contleyla t Referred To Contact Referral ID Status Reason Start Date Expiration Date Visits Re quested Visits Authorized [id number] 1 1 Encounter Details Date Type Department Care Team (Late st Contact Info) Description 08/19/2024 1:59 PM EDT - 08/20/2024 4:28 PM EDT Hospital Encounter [facility] [address] [place] [phone] Rob Wharton MD [address] [facility] [address] [place] [address] Blu Alvarado MD [address] [facility] [address] [place] [address] Dysphagia, unspecified type (Primary Dx) Discharge Disposition: Home or Self Care Social History Tobacco Use Types Packs/Day Years Used Date Smoking Tobacco: Never Smokeless Tobacco: Never Alcohol Use Standard Drinks/Week Comments Never 0 (1 standard drink = 0.6 oz pur e alcohol) [facility] Utilities Answer Date Recorded In the past 12 months has [email or web address], gas, oil, or water [employer] threatened to shut off services in your [...] and heating? Not hard at all 05/28/2024 [facility] [place] of Occupat ional Health - Occupational Stress [...] 1:23 PM EDT Polly Lacey RN * [place] Suicide Severity Rating Scale (Screener/Recent Self-Report) Question [...] Labs beginning of week and f/u with id Seng Test Results Pending at Discharge Pending [...] 08/19/2024 RH Positive 08/19/2024 ABSCRN Negative 08/19/2024 [id number] non-reactive 04/12/2024 HEPCVIRUSABY negative 04/12/2024 URINECX Final [...] IUPC: Resting Tone: Resting Tone by IUPC: [place] Units: Cervix: Exam by: Method: sterile vaginal [...] from the original note were not included. [facility] Obstetric History and Physical Referring [...] her third trimesters prior pregnancies(etiology unknown). 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 She states has never had a [...] IUPC: Resting Tone: Resting Tone by IUPC: [place] Units: Laboratory Results: Lab Results (last 24 [...] AM EDTAssociated Order(s): IP CONSULT TO GASTROENTEROLOGY [facility] Gastroenterology Consult Referring Provider: Dr. Fan/Dr. Wharton [...] expresses concern regarding recent CT scan at [facility] revealing a hiatal hernia. CT scan done prior to most recent due to ovarian cyst and incidentally revealed hiatal hernia. She reports chronic gastrointestinal symptoms. Review of medical record revealed prior GI referral due to blood per rectum. She reports colonoscopy in 2020 at outside facility that revealed diverticulosis and benign colon polyp. She is currently established with provider at [facility] for gastroenterology care she reports repeat [...] , await recommendations following EGD - consider TOMBSTONE POLISHER evaluation if no etiology for difficulty swallowing [...] from the original note were not included. [facility] Obstetric History and Physical Referring [...] her third trimesters prior pregnancies(etiology unknown). 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 She states has never had a [...] IUPC: Resting Tone: Resting Tone by IUPC: [place] Units: Laboratory Results: Lab Results (last 24 [...] Visit [facility] [address] [facility] [address] Robbin Escalante MD [address] [facility] [address] documented as of this encounter Procedures Procedure Name Priority Date/Time Associated Diagnosis Comments TISSUE PATHOLOGY EXAM Routine 08/20/2024 1:55 PM EDT Dysphagia, unspecified type NM ESOPHAGOGASTRODUODENOSCOP Y TRANSORAL DIAGNOSTIC 08/20/2024 1:44 PM EDT Dysphagia, unspecified type UPPER GI ENDOSCOPY 08/20/2024 1:09 PM EDT BASIC METABOLIC PANEL STAT 08/20/2024 5:25 AM EDT POTASSIUM STAT 08/19/2024 8:53 PM EDT ABORH 2ND SPECIMEN VERIFICATION STAT 08/19/2024 4:34 PM EDT NONSTRESS TEST Routine 08/19/2024 4:17 PM EDT [facility] Routine 08/19/2024 3:25 PM EDT [...] EDT) Case Report Surgical Pathology Report Case: [id number] Authorizing Provider: Blu Alvarado MD Collected: 08/20/2024 01:55 PM Ordering Location: [facility] Received: 08/20/2024 02:14 PM ENDO SUITES Pathologist: Khalida Rhoades DO Specimen: Gastric, Antrum, antrum bx for path 08/22/2024 9:18 AM EDT [facility] Clinical Information Dysphagia, unspecified type 08/22/2024 9:18 AM EDT [facility] Final Diagnosis Stomach, antrum, biopsy: 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 pylori is negative (no organisms are identified) Negative for intestinal metaplasia, dysplasia, or malignancy 08/22/2024 9:18 AM EDT [facility] at 0918 EDT Gross Description 1. Gastric, Antrum. Received in formalin labeled antrum biopsy is a 0.4 x 0.2 x 0.2 cm pink-see soft tissue fragment submitted entirely in a single cassette. HDM 08/22/2024 9:18 AM EDT [facility] Microscopic Description The slides are reviewed and demonstrate histopathologic features supporting the above rendered diagnosis. 08/22/2024 9:18 AM EDT [facility] Tissue Pyloric antrum structure / Unknown 08/20/2024 1:55 PM EDT 08/20/2024 2:14 PM EDT us Blu Alvarado MD PATHOLOGY/CYTOLOGY ORDERABLES Final Result [facility]
[address] [place] [address], * Upper GI Endoscopy (08/20/2024 1:09 PM EDT) us Blu Alvarado MD INTERFACE NEEDS Final Result * (ABNORMAL) Basic Metabolic Panel (08/20/2024 5:25 AM EDT) Glucose 84 65 - 99 mg/dL 08/20/2024 6:13 AM EDT [facility] BUN 2.3(L) 6.0 - 20.0 mg/dL 08/20/2024 6:13 AM EDT [facility] Creatinine 0.51(L) 0.57 - 1.00 mg/dL 08/20/2024 6:13 AM EDT [facility] Sodium 139 136 - 145 mmol/L 08/20/2024 6:13 AM EDT [facility] Potassium 3.5 3.5 - 5.2 mmol/L 08/20/2024 6:13 AM EDT [facility] Chloride 109(H) 98 - 107 mmol/L 08/20/2024 6:13 AM EDT [facility] CO2 23.5 22.0 - 29.0 mmol/L 08/20/2024 6:13 AM EDT [facility] Calcium 7.8(L) 8.6 - 10.5 mg/dL 08/20/2024 6:13 AM EDT [facility] BUN/Creatinine Ratio 4.5(L) 7.0 - 25.0 08/20/2024 6:13 AM EDT [facility] Anion Gap 6.5 5.0 - 15.0 mmol/L 08/20/2024 6:13 AM T [facility] eGFR 126.6 >60.0 mL/min/1.7 3 08/20/2024 6:13 AM T [facility] Blood Venipuncture / Unknown [...] Resu lt Performing Organization Address City/[facility]/ZIP Co de Phone Number [facility]
[address] [place] [address], * (ABNORMAL) Potassium (08/19/2024 8:53 PM EDT) Potassium 2.7(L) 3.5 - 5.2 mmol/L 08/19/2024 9:20 PM EDT [facility] Blood Venipuncture / Unknown 08/19/2024 8:53 PM EDT 08/19/2024 9:04 PM EDT Kt Fan DO LAB BLOOD ORDERABLES Final Result Performing Organization Address [facility] Co de Phone Number [facility]
[address] [place] [address], * ABO RH Specimen Verification (08/19/2024 4:34 PM EDT) ABO Type O 08/19/2024 7:39 PM EDT [facility] RH type Positive 08/19/2024 7:39 PM EDT [facility] Blood Venipuncture / Unknown 08/19/2024 4:34 PM EDT 08/19/2024 4:53 PM EDT Rob Wharton MD BLOOD BANK TEST ORDER FRANCO Final Result Performing Organization Address City/[facility]/ZIP Co de Phone Number [facility]
[address] [place] [address], * [facility] (08/19/2024 3:25 PM EDT) Anatomical Region Laterality Modality Ultrasound 08/19/2024 3:09 PM EDT Narrative 08/19/2024 4:54 PM EDT PAT NAME: CAROLE GIRARD MED REC#: [id number] DA: 1990 PAT GEND: F PAT TYPE: E EXAM TRAVIS: [id number] REF PHYS ROB WHARTON Comparison Studies The [...] EFW (oz) 9 oz EFW by: Hadlock ([id number]) Extended Cav. septi pel. tr 4.7 mm Distillery Miller Helper 3.8 mm CM 7.5 mm 84% Nicolaides [...] Heart / Thorax 3-vessel view: Appears normal 7-sbmdrj-dgteaua view: Appears normal Stomach: Appears normal Kidneys: [...] in 4wks for growth. Coding ======= Description: 97987-60 Follow Up Business Systems Architect: RT Annetta Hartmann , [facility] Physician: Jo Chappell MD Electronically signed by: Jo Chappell MD at: 16:54 Procedure Note Jo Chappell MD - 08/19/2024 PAT NAME: CAROLE GIRARD MED REC#: [id number] DA: 1990 PAT GEND: F PAT TYPE: E EXAM TRAVIS: [id number] REF PHYS ROB WHARTON Comparison Studies The findings of this study are compared to the prior ultrasound studydated 07/22/24 Patient Status Inpatient Indication ======== History of c/s x1. History of . Vaginal bleeding. Maternal Assessment Zbpfix194 cm Height (ft)5 ft Height (in)4 in Fvmqyf63 kg Weight (lb)158 lb BMI27.31 kg/m Method ======= Transabdominal ultrasound examination. View: Limited by patient bodyhabitus ========= Love . Number of fetuses: 1 Dating ====== Method of dating:based on stated DUSTY GA by prior [id number] w + 1 d DUSTY by prior assessment:12/01/2024 Ultrasound examination on:08/19/2024 GA by U/S based upon:AC, BPD, Femur, HC GA by U/S24 w + 2 d DUSTY by U/S:12/07/2024 Previous dating:based on stated DUSTY, selected on 07/22/2024 Agreed DUSTY of previous datin12/01/2024 Assigned:based on stated DUSTY, selected on 08/19/2024 Assigned GA25 w + 1 d Assigned DUSTY:12/01/2024 [id number] d Biometry Standard BPD57.6 mm 23w 4d 5% Hadlock OFD81.6 mm 26w 4d 88% Jamal HC225.7 mm 24w 4d 13% Hadlock Cerebellum tr28.9 mm 25w 2d 62% Hill AC194.9 mm 24w 1d 15% Hadlock Femur44.9 mm 24w 6d 27% Hadlock Cwhylpp62.3 mm 25w 3d 50% Jamal HC / AC1.16 IOY604 g 24w 2d 16% Hadlock EFW (lb)1 lb EFW (oz)9 oz EFW by:Hadlock ([id number]) Extended Cav. septi pel. tr4.7 mm Vp3.8 mm CM7.5 mm 84% Nicolaides Head / Face / Neck Cephalic index0.71 <1% Nicolaides Extremities / Bony Struc FL / BPD0.78 FL / HC0.20 FL / AC0.23 Other Structures [id number] bpm General Evaluation Cardiac activity present. FHR [...] normal Heart / Thorax 3-vessel view:Appears normal 5-fbairr-fiezacl view:Appears normal Stomach:Appears normal Kidneys:Appears normal Bladder:Appears normal Gender:female Wants to know gender:yes Maternal Structures Uterus / Cervix Cervix:Visualized Approach:Transabdominal Cervical ecitqq55.9 mm Doppler Arterial Umbilical A PI1.01 32% [...] office in 4wks for growth. Coding ======= Description:[id number] Follow Up Business Systems Architect: RT Annetta Hartmann , RDMS Physician: Jo Chappell MD Electronically signed by: Jo Chappell MD at: 16:54 us Kt Fan DO G US ORDERABLES Final Res ult * Protein / Creatinine Ratio, Urine - Urine, Clean Catch (08/19/2024 3:02 PM EDT) Protein/Creati nine Ratio, Urine 126.1 0.0 - 200.0 mg/G Crea 08/20/2024 12:47 AM EDT [facility] Creatinine, Urine 148.3 mg/dL 08/20/2024 12:47 AM EDT [facility] Total Protein, Urine 18.7 mg/dL 08/20/2024 12:47 AM EDT [facility] Urine Urine specimen obtained by clean catch procedure / Unknown Collection / Unknown 08/19/2024 3:02 PM EDT 08/19/2024 4:26 PM EDT Kt Fan URINE ORDERABLES Final Resu lt [facility]
[address] [place] [address], [place] [phone] * (ABNORMAL) Magnesium (08/19/2024 3:02 PM EDT) Magnesium 1.5(L) 1.6 - 2.6 mg/dL 08/19/2024 5:12 PM EDT [facility] Blood Line / Unknown 08/19/2024 3: 02 PM EDT 08/19/2024 3:10 PM EDT Kt Fan DO LAB BLOOD ORDERABLES Final Result [facility]
[address] [place] [address], [place] [phone] * Urinalysis, Microscopic Only - Urine, Clean Catch (08/19/2024 3:02 PM EDT) RBC, UA 0-2 None Seen, 0-2 /HPF 08/19/2024 3:33 PM EDT [facility] WBC, UA 0-2 None Seen, 0-2 /HPF 08/19/2024 3:33 PM EDT [facility] Bacteria, UA None Seen None Seen /HPF 08/19/2024 3:33 PM EDT [facility] Squamous Epithelial Cells, UA 0-2 None Seen, 0-2 /HPF 08/19/2024 3:33 PM EDT [facility] Hyaline Casts, UA None Seen None Seen /LPF 08/19/2024 3:33 PM EDT [facility] Methodology Automated Microscopy 08/19/2024 3:33 PM EDT [facility] Urine Urine specimen obtained by clean catch procedure / Unknown Collection / Unknown 08/19/2024 3:02 PM EDT 08/19/2024 3:13 PM EDT us Kt Fan DO URINE ORDERABLES Final Resu lt [facility]
[address] [place] [address], * (ABNORMAL) CBC Auto Differential (08/19/2024 3:02 PM EDT) WBC 9.19 3.40 - 10.80 10*3/mm3 08/19/2024 3:23 PM EDT [facility] RBC 3.58(L) 3.77 - 5.28 10*6/mm3 08/19/2024 3:23 PM EDT [facility] Hemoglobin 10.5(L) 12.0 - 15.9 g/dL 08/19/2024 3:23 PM EDT [facility] Hematocrit 31.4(L) 34.0 - 46.6 % 08/19/2024 3:23 PM EDT [facility] MCV 87.7 79.0 - 97.0 fL 08/19/2024 3:23 PM EDT [facility] MCH 29.3 26.6 - 33.0 pg 08/19/2024 3:23 PM EDT [facility] MCHC 33.4 31.5 - 35.7 g/dL 08/19/2024 3:23 PM EDT [facility] RDW 13.4 12.3 - 15.4 % 08/19/2024 3:23 PM EDT [facility] RDW-SD 42.4 37.0 - 54.0 fl 08/19/2024 3:23 PM EDT [facility] MPV 12.0 6.0 - 12.0 fL 08/19/2024 3:23 PM EDT [facility] Platelets 241 140 - 450 10*3/mm3 08/19/2024 3:23 PM EDT [facility] Neutrophil % 66.8 42.7 - 76.0 % 08/19/2024 3:23 PM EDT [facility] Lymphocyte % 24.4 19.6 - 45.3 % 08/19/2024 3:23 PM [facility] Monocyte % 7.6 5.0 - 12.0 % 08/19/2024 3:23 PM [facility] Eosinophil % 0.7 0.3 - 6.2 % 08/19/2024 3:23 PM [facility] Basophil % 0.2 0.0 - 1.5 % 08/19/2024 3:23 PM [facility] Immature Grans % 0.3 0.0 - 0.5 % 08/19/2024 3:23 PM [facility] Neutrophils, Absolute 6.14 1.70 - 7.00 10*3/mm3 08/19/2024 3:23 PM [facility] Lymphocytes, Absolute 2.24 0.70 - 3.10 10*3/mm3 08/19/2024 3:23 PM EDT [facility] Monocytes, Absolute 0.70 0.10 - 0.90 10*3/mm3 08/19/2024 3:23 PM EDT [facility] Eosinophils, Absolute 0.06 0.00 - 0.40 10*3/mm3 08/19/2024 3:23 PM [facility] Basophils, Absolute 0.02 0.00 - 0.20 10*3/mm3 08/19/2024 3:23 PM EDT [facility] Immature Grans, Absolute 0.03 0.00 - 0.05 10*3/mm3 08/19/2024 3:23 PM EDT [facility] nRBC 0.0 0.0 - 0.2 /100 WBC 08/19/2024 3:23 PM EDT [facility] Blood Line / Unknown 08/19/2024 3: 02 PM EDT 08/19/2024 3:10 PM EDT Kt Fan DO LAB BLOOD ORDERABLES Final Result [facility]
[address] [place] [address], * (ABNORMAL) Urinalysis With Microscopic If Indicated (No Culture) - Urine, Clean Catch (08/19/2024 3:02 PM EDT) Color, UA Yellow Yellow, Straw 08/19/2024 3:33 PM EDT [facility] Appearance, UA Clear Clear 08/19/2024 3:33 PM EDT [facility] pH, UA >=9.0(H) 5.0 - 8.0 08/19/2024 3:33 PM EDT [facility] Specific Mershon, UA 1.018 1.005 - 1.030 08/19/2024 3:33 PM EDT [facility] Glucose, UA Negative Negative 08/19/2024 3:33 PM EDT [facility] Ketones, UA 15 mg/dL (1+)(A) Negative 08/19/2024 3:33 PM EDT [facility] Bilirubin, UA Negative Negative 08/19/2024 3:33 PM EDT [facility] Blood, UA Negative Negative 08/19/2024 3:33 PM EDT [facility] Protein, UA 30 mg/dL (1+)(A) Negative 08/19/2024 3:33 PM EDT [facility] Leuk Esterase, UA Negative Negative 08/19/2024 3:33 PM EDT [facility] Nitrite, UA Negative Negative 08/19/2024 3:33 PM EDT [facility] Urobilinogen, UA 1.0 E.U./dL 0.2 - 1.0 E.U./dL 08/19/2024 3:33 PM EDT [facility] Urine Urine specimen obtained by clean catch procedure / Unknown Collection / Unknown 08/19/2024 3:02 PM EDT 08/19/2024 3:13 PM EDT us Kt Fan DO URINE ORDERABLES Final Resu lt Performing Organization Address City/[facility]/ZIP Co de Phone Number [facility]
[address] [place] [address], [place] [phone] * Amylase (08/19/2024 3:02 PM EDT) Amylase 73 28 - 100 U/L 08/19/2024 3:36 PM EDT [facility] Blood Line / Unknown 08/19/2024 3: 02 PM EDT 08/19/2024 3:10 PM EDT us Kt Fan DO LAB BLOOD ORDERABLES Final Result Performing Organization Address [facility] Co de Phone Number [facility]
[address] [place] [address], [place] [phone] * Lipase (08/19/2024 3:02 PM EDT) Lipase 13 13 - 60 U/L 08/19/2024 3:36 PM EDT [facility] Blood Line / Unknown 08/19/2024 3: 02 PM EDT 08/19/2024 3:10 PM EDT us Kt Fan DO LAB BLOOD ORDERABLES Final Result Performing Organization Address City/[facility]/ZIP Co de Phone Number [facility]
[address] [place] [address], * (ABNORMAL) Comprehensive Metabolic Panel (08/19/2024 3:02 PM EDT) [facility] Glucose 75 65 - 99 mg/dL 08/19/2024 3:38 PM EDT [facility] BUN 3.6(L) 6.0 - 20.0 mg/dL 08/19/2024 3:38 PM EDT [facility] Creatinine 0.51(L) 0.57 - 1.00 mg/dL 08/19/2024 3:38 PM EDT [facility] Sodium 137 136 - 145 mmol/L 08/19/2024 3:38 PM EDT [facility] Potassium 2.6(LL) 3.5 - 5.2 mmol/L 08/19/2024 3:38 PM EDT [facility] Comment:Specimen hemolyzed. Result may be falsely elevated. Chloride 99 98 - 107 mmol/L 08/19/2024 3:38 PM EDT [facility] CO2 24.2 22.0 - 29.0 mmol/L 08/19/2024 3:38 PM EDT [facility] Calcium 8.8 8.6 - 10.5 mg/dL 08/19/2024 3:38 PM EDT [facility] Total Protein 6.6 6.0 - 8.5 g/dL 08/19/2024 3:38 PM EDT [facility] Albumin 3.4(L) 3.5 - 5.2 g/dL 08/19/2024 3:38 PM EDT [facility] ALT (SGPT) 10 1 - 33 U/L 08/19/2024 3:38 PM EDT [facility] AST (SGOT) 22 1 - 32 U/L 08/19/2024 3:38 PM EDT [facility] Alkaline Phosphatase 64 39 - 117 U/L 08/19/2024 3:38 PM EDT [facility] Total Bilirubin 0.5 0.0 - 1.2 mg/dL 08/19/2024 3:38 PM EDT [facility] Globulin 3.2 gm/dL 08/19/2024 3:38 PM EDT [facility] Comment:Calculated Result A/G Ratio 1.1 g/dL 08/19/2024 3:38 PM EDT [facility] BUN/Creatinine Ratio 7.1 7.0 - 25.0 08/19/2024 3:38 PM EDT [facility] Anion Gap 13.8 5.0 - 15.0 mmol/L 08/19/2024 3:38 PM EDT [facility] eGFR 126.6 >60.0 mL/min/1.7 3 08/19/2024 3:38 PM EDT [facility] Blood Line / Unknown 08/19/2024 3: 02 PM EDT 08/19/2024 3:10 PM EDT Narrative [facility] - 08/19/2024 3:38 PM [...] Fan DO LAB BLOOD ORDERABLES Final Result [facility]
[address] [place] [address], * Type & Screen (08/19/2024 3:02 PM EDT) ABO Type O 08/19/2024 3:51 PM EDT [facility] RH type Positive 08/19/2024 3:51 PM EDT [facility] Antibody Screen Negative 08/19/2024 3:51 PM EDT [facility] T&S Expiration Date 08/22/2024 11:59:59 PM 08/19/2024 3:51 PM EDT [facility] Blood Line / Unknown 08/19/2024 3: 02 PM EDT 08/19/2024 3:15 PM EDT Kt Fan DO BLOOD BANK TEST ORDERABLES Edited Result - Final [facility]
[address] [place] [address], documented in this encounter Visit Diagnoses Diagnosis [...] documented as of this encounter Care Teams Children'S Program Coordinator Relationship Specialty Start Date End Date Norma Friedman APRN [address] [place] [place]FA[place] APPIAH [id number] PCP - General Family Medicine 05/14/24 documented as of this encounter
--- OUTSIDE RECORDS SUMMARY | 2024-08-20 13:33 | XMS_ITS | Encounter Summary ---
[facility] Organization [facility] Address [address] [place] [address] Care Team Providers Care Repairer General Name Role Phone Norma Friedman APRN Primary Care Provider + [phone] Reason for Visit * Reason Comments Vaginal Bleeding * Auth/Cert (Routine) Specialty Diagnoses / Procedures Referred By Tarik t Referred To Contact Referral ID Status Reason Start Date Expiration Date Visits Re quested Visits Authorized [id number] 1 1 Encounter Details Date Type Department Care Team (Late st Contact Info) Description 08/20/2024 1:33 PM EDT - 08/20/2024 2:05 PM EDT Surgery [facility] ENDO SUITES [address] [place] [address] Blu Alvarado MD [address] [facility] [address] [place] [address] ESOPHAGOGASTRODUODENOSCOPY [08791 (CPT )] Social History Tobacco Use Types Packs/Day Years Used Date Smoking Tobacco: Never Smokeless Tobacco: Never Alcohol Use Standard Drinks/Week Comments Never 0 (1 standard drink = 0.6 oz pur e alcohol) [facility] Utilities Answer Date Recorded In the [...] Not hard at all 05/28/2024 [facility] - Occupational Stress Questionnaire Answer Date Recorded [...] GED or equivalent No 05/28/2024 Preferred Language Hong [place]er 05/28/2024 PHQ-2 Answer Date Recorded Patient Health [...] 1:23 PM EDT Polly Lacey RN * [place] Suicide Severity Rating Scale (Screener/Recent Self-Report) Question [...] [facility] Pending at Discharge Pending Labs Order Current Status Tissue Pathology Exam In process Rob Wharton MD 08/20/24 15:36 EDT Time: Discharge <30 min documented in this encounter Discharge Instructions * Attachments The following attachments cannot be sent through Care Everywhere. * Second Trimester of (Hong Konger) * Upper Endoscopy Adult Care After ([place]er) documented in this encounter Medications at Time [...] 08/19/2024 RH Positive 08/19/2024 ABSCRN Negative 08/19/2024 [id number] non-reactive 04/12/2024 HEPCVIRUSABY negative 04/12/2024 URINECX Final [...] IUPC: Resting Tone: Resting Tone by IUPC: [place] Units: Cervix: Exam by: Method: sterile vaginal [...] from the original note were not included. [facility] Obstetric History and Physical Referring [...] her third trimesters prior pregnancies(etiology unknown). Patient's residential director is in [facility]. She states has never had [...] IUPC: Resting Tone: Resting Tone by IUPC: [place] Units: Laboratory Results: Lab Results (last 24 [...] AM EDTAssociated Order(s): IP CONSULT TO GASTROENTEROLOGY [facility] Gastroenterology Consult Referring Provider: [...] expresses concern regarding recent CT scan at [facility] revealing a hiatal hernia. CT scan done prior to most recent due to ovarian cyst and incidentally revealed hiatal hernia. She reports chronic gastrointestinal symptoms. Review of medical record revealed prior GI referral due to blood per rectum. She reports colonoscopy in 2020 at outside facility that revealed diverticulosis and benign colon polyp. She is currently established with provider at [facility] for gastroenterology care she reports [...] , await recommendations following EGD - consider COMMUNITY DIRECTOR evaluation if no etiology for difficulty swallowing [...] from the original note were not included. [facility] Obstetric History and Physical Referring [...] her third trimesters prior pregnancies(etiology unknown). Patient's residential director is in [facility]. She states has never had [...] IUPC: Resting Tone: Resting Tone by IUPC: [place] Units: Laboratory Results: Lab Results (last 24 [...] [facility] GASTROENTEROLOGY [address] [id number] Robbin Escalante MD [address] [address] documented as of this encounter Procedures Procedure Name Priority Date/Time Associated Diagnosis Comments TISSUE PATHOLOGY EXAM Routine 08/20/2024 1:55 PM EDT Dysphagia, unspecified type TX ESOPHAGOGASTRODUODENOSCOP Y TRANSORAL DIAGNOSTIC 08/20/2024 1:44 PM EDT Dysphagia, unspecified type UPPER GI ENDOSCOPY 08/20/2024 1:09 PM EDT BASIC METABOLIC PANEL STAT 08/20/2024 5:25 AM EDT POTASSIUM STAT 08/19/2024 8:53 PM EDT ABORH 2ND SPECIMEN VERIFICATION STAT 08/19/2024 4:34 PM EDT NONSTRESS TEST Routine 08/19/2024 4:17 PM EDT [facility] Routine 08/19/2024 3:25 [...] EDT) Case Report Surgical Pathology Report Case: [id number] Authorizing Provider: Blu Alvarado MD Collected: 08/20/2024 01:55 PM Ordering Location: [facility] Received: 08/20/2024 02:14 PM ENDO SUITES Pathologist: Khalida Rhoades DO Specimen: Gastric, Antrum, antrum bx for path 08/22/2024 9:18 AM EDT [facility] Clinical Information Dysphagia, unspecified type 08/22/2024 9:18 AM EDT [facility] Final Diagnosis Stomach, antrum, biopsy: 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 pylori is negative (no organisms are identified) Negative for intestinal metaplasia, dysplasia, or malignancy 08/22/2024 9:18 AM EDT [facility] at 0918 EDT Gross Description 1. Gastric, Antrum. Received in formalin labeled antrum biopsy is a 0.4 x 0.2 x 0.2 cm pink-see soft tissue fragment submitted entirely in a single cassette. HDM 08/22/2024 9:18 AM EDT [facility] Microscopic Description The slides are reviewed and demonstrate histopathologic features supporting the above rendered diagnosis. 08/22/2024 9:18 AM EDT [facility] Tissue Pyloric antrum structure / Unknown 08/20/2024 1:55 PM EDT 08/20/2024 2:14 PM EDT us Blu Alvarado MD PATHOLOGY/CYTOLOGY ORDERABLES Final Result [facility]
[address] [place] [address], * Upper GI Endoscopy (08/20/2024 1:09 PM EDT) us Blu Alvarado MD INTERFACE NEEDS Final Result * (ABNORMAL) Basic Metabolic Panel (08/20/2024 5:25 AM EDT) Glucose 84 65 - 99 mg/dL 08/20/2024 6:13 AM EDT [facility] BUN 2.3(L) 6.0 - 20.0 mg/dL 08/20/2024 6:13 AM T [facility] Creatinine 0.51(L) 0.57 - 1.00 mg/dL 08/20/2024 6:13 AM [facility] Sodium 139 136 - 145 mmol/L 08/20/2024 6:13 AM EDT [facility] Potassium 3.5 3.5 - 5.2 mmol/L 08/20/2024 6:13 AM EDT [facility] Chloride 109(H) 98 - 107 mmol/L 08/20/2024 6:13 AM [facility] CO2 23.5 22.0 - 29.0 mmol/L 08/20/2024 6:13 AM [facility] Calcium 7.8(L) 8.6 - 10.5 mg/dL 08/20/2024 6:13 AM [facility] BUN/Creatinine Ratio 4.5(L) 7.0 - 25.0 08/20/2024 6:13 AM [facility] Anion Gap 6.5 5.0 - 15.0 mmol/L 08/20/2024 6:13 AM [facility] eGFR 126.6 >60.0 mL/min/1.7 3 08/20/2024 6:13 AM [facility] Blood Venipuncture / Unknown 08/20/2024 5:25 AM EDT 08/20/2024 5:46 AM T [facility] LABORATORY - 08/20/2024 6:13 AM EDT [...] Resu lt Performing Organization Address City/[facility]/ZIP Co de Phone Number [facility]
[address] [place] [address], * (ABNORMAL) Potassium (08/19/2024 8:53 PM EDT) Potassium 2.7(L) 3.5 - 5.2 mmol/L 08/19/2024 9:20 PM EDT [facility] Blood Venipuncture / Unknown 08/19/2024 8:53 PM EDT 08/19/2024 9:04 PM EDT Kt Fan DO LAB BLOOD ORDERABLES Final Result Performing Organization Address [facility] [[email or web address]] Co de Phone Number [facility]
[address] [place] [address], * ABO RH Specimen Verification (08/19/2024 4:34 PM EDT) ABO Type O 08/19/2024 7:39 PM EDT [facility] LABORATORY RH type Positive 08/19/2024 7:39 PM EDT [facility] Blood Venipuncture / Unknown 08/19/2024 4:34 PM EDT 08/19/2024 4:53 PM EDT Rob Wharton MD BLOOD BANK TEST ORDER FRANCO Final Result Performing Organization Address City/[facility]/ZIP Co de Phone Number [facility] BB LABORATORY
[address] [place] [address], * [facility] (08/19/2024 3:25 PM EDT) Anatomical Region Laterality Modality Ultrasound 08/19/2024 3:09 PM EDT Narrative 08/19/2024 4:54 PM EDT PAT NAME: CAROLE GIRARD MED REC#: [id number] DA: 1990 PAT GEND: F PAT TYPE: E EXAM TRAVIS: [id number] REF PHYS ROB WHARTON Comparison Studies The [...] EFW (oz) 9 oz EFW by: Hadlock ([id number]) Extended Cav. septi pel. tr 4.7 mm Taker Off Braker Machine 3.8 mm CM 7.5 mm 84% Nicolaides [...] Heart / Thorax 3-vessel view: Appears normal 7-zuayet-igjvpzm view: Appears normal Stomach: Appears normal Kidneys: [...] in 4wks for growth. Coding ======= Description: 60939-39 Follow Up Metal Gauge Maker: Alison Verduzco RT R , MS Physician: Jo Chappell MD Electronically signed by: Jo Chappell MD at: 16:54 Procedure Note Jo Chappell MD - 08/19/2024 PAT NAME: CAROLE GIRARD MED REC#: [id number] DA: [id number] PAT GEND: F PAT TYPE: E EXAM TRAVIS: [id number] REF PHYS ROB WHARTON Comparison Studies The findings of this study are compared to the prior ultrasound studydated 07/22/24 Patient Status Inpatient Indication ======== History of c/s x1. History of . Vaginal bleeding. Maternal Assessment Emmwzt644 cm Height (ft)5 ft Height (in)4 in Piertl77 kg Weight (lb)158 lb BMI27.31 kg/m Method ======= Transabdominal ultrasound examination. View: Limited by patient bodyhabitus ========= Love . Number of fetuses: 1 Dating ====== Method of dating:based on stated DUSTY GA by prior [id number] w + 1 d DUSTY by prior assessment:12/01/2024 Ultrasound examination on:08/19/2024 GA by U/S based upon:AC, BPD, Femur, HC GA by U/S24 w + 2 d DUSTY by U/S:12/07/2024 Previous dating:based on stated DUSTY, selected on 07/22/2024 Agreed DUSTY of previous datin12/01/2024 Assigned:based on stated DUSTY, selected on 08/19/2024 Assigned GA25 w + 1 d Assigned DUSTY:12/01/2024 [id number] d Biometry Standard BPD57.6 mm 23w 4d 5% Hadlock OFD81.6 mm 26w 4d 88% Jamal HC225.7 mm 24w 4d 13% Hadlock Cerebellum tr28.9 mm 25w 2d 62% Hill AC194.9 mm 24w 1d 15% Hadlock Femur44.9 mm 24w 6d 27% Hadlock Nidhyrx96.3 mm 25w 3d 50% Jamal HC / AC1.16 EKX642 g 24w 2d 16% Hadlock EFW (lb)1 lb EFW (oz)9 oz EFW by:Hadlock ([id number]) Extended Cav. septi pel. tr4.7 mm Vp3.8 mm CM7.5 mm 84% Nicolaides Head / Face / Neck Cephalic index0.71 <1% Nicolaides Extremities / Bony Struc FL / BPD0.78 FL / HC0.20 FL / AC0.23 Other Structures [id number] bpm General Evaluation Cardiac activity present. FHR [...] normal Heart / Thorax 3-vessel view:Appears normal 9-yvqurf-becftnb view:Appears normal Stomach:Appears normal Kidneys:Appears normal Bladder:Appears [...] office in 4wks for growth. Coding ======= Description:98189-46 Follow Up Metal Gauge Maker: RT Annetta Hartmann , [facility] Physician: Jo Chappell MD Electronically signed by: Jo Chappell MD at: 16:54 us Kt Fan DO [facility] US ORDERABLES Final Res ult * Protein / Creatinine Ratio, Urine - Urine, Clean Catch (08/19/2024 3:02 PM EDT) Protein/Creati nine Ratio, Urine 126.1 0.0 - 200.0 mg/G Crea 08/20/2024 12:47 AM EDT [facility] Creatinine, Urine 148.3 mg/dL 08/20/2024 12:47 AM EDT [facility] Total Protein, Urine 18.7 mg/dL 08/20/2024 12:47 AM EDT [facility] Urine Urine specimen obtained by clean catch procedure / Unknown Collection / Unknown 08/19/2024 3:02 PM EDT 08/19/2024 4:26 PM EDT Kt Fan DO URINE ORDERABLES Final Resu lt [facility]
[address] [place] [address], [place] [phone] * (ABNORMAL) Magnesium (08/19/2024 3:02 PM EDT) Magnesium 1.5(L) 1.6 - 2.6 mg/dL 08/19/2024 5:12 PM EDT [facility] Blood Line / Unknown 08/19/2024 3: 02 PM EDT 08/19/2024 3:10 PM EDT Kt Fan DO LAB BLOOD ORDERABLES Final Result Performing Organization Address City/[facility]/ZIP Co de Phone Number [facility]
[address] [place] [address], [place] [phone] * Urinalysis, Microscopic Only - Urine, Clean Catch (08/19/2024 3:02 PM EDT) RBC, UA 0-2 None Seen, 0-2 /HPF 08/19/2024 3:33 PM EDT [facility] WBC, UA 0-2 None Seen, 0-2 /HPF 08/19/2024 3:33 PM EDT [facility] Bacteria, UA None Seen None Seen /HPF 08/19/2024 3:33 PM EDT [facility] Squamous Epithelial Cells, UA 0-2 None Seen, 0-2 /HPF 08/19/2024 3:33 PM EDT [facility] Hyaline Casts, UA None Seen None Seen /LPF 08/19/2024 3:33 PM EDT [facility] Methodology Automated Microscopy 08/19/2024 3:33 PM EDT [facility] Urine Urine specimen obtained by clean catch procedure / Unknown Collection / Unknown 08/19/2024 3:02 PM EDT 08/19/2024 3:13 PM EDT Kt Fan DO URINE ORDERABLES Final Resu lt [facility]
[address] [place] [address], * (ABNORMAL) CBC Auto Differential (08/19/2024 3:02 PM EDT) WBC 9.19 3.40 - 10.80 10*3/mm3 08/19/2024 3:23 PM EDT [facility] RBC 3.58(L) 3.77 - 5.28 10*6/mm3 08/19/2024 3:23 PM EDT [facility] Hemoglobin 10.5(L) 12.0 - 15.9 g/dL 08/19/2024 3:23 PM EDT [facility] Hematocrit 31.4(L) 34.0 - 46.6 % 08/19/2024 3:23 PM EDT [facility] MCV 87.7 79.0 - 97.0 fL 08/19/2024 3:23 PM EDT [facility] MCH 29.3 26.6 - 33.0 pg 08/19/2024 3:23 PM EDT [facility] MCHC 33.4 31.5 - 35.7 g/dL 08/19/2024 3:23 PM EDT [facility] RDW 13.4 12.3 - 15.4 % 08/19/2024 3:23 PM EDT [facility] RDW-SD 42.4 37.0 - 54.0 fl 08/19/2024 3:23 PM EDT [facility] MPV 12.0 6.0 - 12.0 fL 08/19/2024 3:23 PM EDT [facility] Platelets 241 140 - 450 10*3/mm3 08/19/2024 3:23 PM EDT [facility] Neutrophil % 66.8 42.7 - 76.0 % 08/19/2024 3:23 PM EDT [facility] Lymphocyte % 24.4 19.6 - 45.3 % 08/19/2024 3:23 PM EDT [facility] Monocyte % 7.6 5.0 - 12.0 % 08/19/2024 3:23 PM EDT [facility] Eosinophil % 0.7 0.3 - 6.2 % 08/19/2024 3:23 PM EDT [facility] Basophil % 0.2 0.0 - 1.5 % 08/19/2024 3:23 PM EDT [facility] Immature Grans % 0.3 0.0 - 0.5 % 08/19/2024 3:23 PM EDT [facility] Neutrophils, Absolute 6.14 1.70 - 7.00 10*3/mm3 08/19/2024 3:23 PM EDT [facility] Lymphocytes, Absolute 2.24 0.70 - 3.10 10*3/mm3 08/19/2024 3:23 PM EDT [facility] Monocytes, Absolute 0.70 0.10 - 0.90 10*3/mm3 08/19/2024 3:23 PM EDT [facility] Eosinophils, Absolute 0.06 0.00 - 0.40 10*3/mm3 08/19/2024 3:23 PM EDT [facility] Basophils, Absolute 0.02 0.00 - 0.20 10*3/mm3 08/19/2024 3:23 PM EDT [facility] Immature Grans, Absolute 0.03 0.00 - 0.05 10*3/mm3 08/19/2024 3:23 PM EDT [facility] nRBC 0.0 0.0 - 0.2 /100 WBC 08/19/2024 3:23 PM EDT [facility] Blood Line / Unknown 08/19/2024 3: 02 PM EDT 08/19/2024 3:10 PM EDT Kt Fan DO LAB BLOOD ORDERABLES Final Result [facility]
[address] [place] [address], * (ABNORMAL) Urinalysis With Microscopic If Indicated (No Culture) - Urine, Clean Catch (08/19/2024 3:02 PM EDT) Color, UA Yellow Yellow, Straw 08/19/2024 3:33 PM EDT [facility] Appearance, UA Clear Clear 08/19/2024 3:33 PM EDT [facility] pH, UA >=9.0(H) 5.0 - 8.0 08/19/2024 3:33 PM EDT [facility] Specific [place], UA 1.018 1.005 - 1.030 08/19/2024 3:33 PM EDT [facility] Glucose, UA Negative Negative 08/19/2024 3:33 PM EDT [facility] Ketones, UA 15 mg/dL (1+)(A) Negative 08/19/2024 3:33 PM EDT [facility] Bilirubin, UA Negative Negative 08/19/2024 3:33 PM EDT [facility] Blood, UA Negative Negative 08/19/2024 3:33 PM EDT [facility] Protein, UA 30 mg/dL (1+)(A) Negative 08/19/2024 3:33 PM EDT [facility] Leuk Esterase, UA Negative Negative 08/19/2024 3:33 PM EDT [facility] Nitrite, UA Negative Negative 08/19/2024 3:33 PM EDT [facility] Urobilinogen, UA 1.0 E.U./dL 0.2 - 1.0 E.U./dL 08/19/2024 3:33 PM EDT [facility] Urine Urine specimen obtained by clean catch procedure / Unknown Collection / Unknown 08/19/2024 3:02 PM EDT 08/19/2024 3:13 PM EDT us Kt Fan DO URINE ORDERABLES Final Resu lt [facility]
[address] [place] [address], [place] [phone] * Amylase (08/19/2024 3:02 PM EDT) Amylase 73 28 - 100 U/L 08/19/2024 3:36 PM EDT [facility] Blood Line / Unknown 08/19/2024 3: 02 PM EDT 08/19/2024 3:10 PM EDT us Kt Fan DO LAB BLOOD ORDERABLES Final Result Performing Organization Address [facility] [[email or web address]] Co de Phone Number [facility]
[address] [place] [address], [place] [phone] * Lipase (08/19/2024 3:02 PM EDT) Lipase 13 13 - 60 U/L 08/19/2024 3:36 PM EDT [facility] Blood Line / Unknown 08/19/2024 3: 02 PM EDT 08/19/2024 3:10 PM EDT us Kt Fan DO LAB BLOOD ORDERABLES Final Result Performing Organization Address City/[facility]/ZIP Co de Phone Number [facility]
[address] [place] [address], [place] [phone] * (ABNORMAL) Comprehensive Metabolic Panel (08/19/2024 3:02 PM EDT) Glucose 75 65 - 99 mg/dL 08/19/2024 3:38 PM EDT [facility] BUN 3.6(L) 6.0 - 20.0 mg/dL 08/19/2024 3:38 PM T [facility] Creatinine 0.51(L) 0.57 - 1.00 mg/dL 08/19/2024 3:38 PM EDT [facility] Sodium 137 136 - 145 mmol/L 08/19/2024 3:38 PM T [facility] Potassium 2.6(LL) 3.5 - 5.2 mmol/L 08/19/2024 3:38 PM [facility] Comment:Specimen hemolyzed. Result may be falsely elevated. Chloride 99 98 - 107 mmol/L 08/19/2024 3:38 PM [facility] CO2 24.2 22.0 - 29.0 mmol/L 08/19/2024 3:38 PM T [facility] Calcium 8.8 8.6 - 10.5 mg/dL 08/19/2024 3:38 PM T [facility] Total Protein 6.6 6.0 - 8.5 g/dL 08/19/2024 3:38 PM [facility] Albumin 3.4(L) 3.5 - 5.2 g/dL 08/19/2024 3:38 PM [facility] ALT (SGPT) 10 1 - 33 U/L 08/19/2024 3:38 PM T [facility] AST (SGOT) 22 1 - 32 U/L 08/19/2024 3:38 PM T [facility] Alkaline Phosphatase 64 39 - 117 U/L 08/19/2024 3:38 PM [facility] Total Bilirubin 0.5 0.0 - 1.2 mg/dL 08/19/2024 3:38 PM T [facility] Globulin 3.2 gm/dL 08/19/2024 3:38 PM T [facility] Comment:Calculated Result A/G Ratio 1.1 g/dL 08/19/2024 3:38 PM EDT [facility] BUN/Creatinine Ratio 7.1 7.0 - 25.0 08/19/2024 3:38 PM EDT [facility] Anion Gap 13.8 5.0 - 15.0 mmol/L 08/19/2024 3:38 PM EDT [facility] eGFR 126.6 >60.0 mL/min/1.7 3 08/19/2024 3:38 PM EDT [facility] Blood Line / Unknown 08/19/2024 3: 02 PM EDT 08/19/2024 3:10 PM EDT [facility] LAB[facility] - 08/19/2024 3:38 PM EDT [...] Fan DO LAB BLOOD ORDERABLES Final Result [facility]
[address] [place] [address], * Type & Screen (08/19/2024 3:02 PM EDT) ABO Type O 08/19/2024 3:51 PM EDT [facility] LABORAT[facility] RH type Positive 08/19/2024 3:51 PM EDT [facility] Antibody Screen Negative 08/19/2024 3:51 PM EDT [facility] T&S Expiration Date 08/22/2024 11:59:59 PM 08/19/2024 3:51 PM EDT [facility] Blood Line / Unknown 08/19/2024 3: 02 PM EDT 08/19/2024 3:15 PM EDT Kt Fan DO BLOOD BANK TEST ORDERABLES Edited Result - Final [facility] LABOR[facility]
[address] [place] [address], documented in this encounter Visit Diagnoses Diagnosis [...] BPA Driven Protocol Open Order & [facility] Electrolyte Replacement Protocol Algorithm to [...] documented as of this encounter Care Teams Repairer General Relationship Specialty Start Date End Date Norma Friedman APRN [address] [place] G3 RAFAELA APPIAH [id number] PCP - General Family Medicine 05/14/24 documented as of this encounter
--- OUTSIDE RECORDS SUMMARY | 2024-08-20 13:44 | XMS_ITS | Encounter Summary ---
[facility] Address [address] [place] [id number] Care Team Providers Care Checkroom Attendant Name Role Phone IvyKade goldbergdev FERNÁNDEZ Primary Care Provider + [phone] Reason for Visit * Auth/Cert (Routine) Specialty Diagnoses / Procedures Referred By Contac t Referred To Contact Referral ID Status Reason Start Date Expiration Date Visits Re quested Visits Authorized 1 1 Encounter Details Date Type Department Care Team (Late st Contact Info) Description 08/20/2024 1:44 PM EDT Anesthesia Event [facility] ENDO SUITES [address] [place] [phone] Akash Anguiano MD [address] [place] [address] Liborio Peralta CRNA [address] [place] [address] Anesthesia Record Procedure Summary Procedure Name Responsible [...] drink = 0.6 oz pur e alcohol) [facility] Utilities Answer Date Recorded In the [...] hard at all 05/28/2024 [facility] [place] of Occupat ional Health - Occupational Stress [...] GED or equivalent No 05/28/2024 Preferred Language German 05/28/2024 PHQ-2 Answer Date Recorded Patient Health [...] 1:23 PM EDT Polly Lacey RN * [place] Suicide Severity Rating Scale (Screener/Recent Self-Report) Question Answer Date of Assessment Author 6. Suicidal Behavior (Lifetime) No 1:23 PM EDT Polly Cabrera RN documented as of this encounter OR Notes * Anesthesia Postprocedure Evaluation - Liborio Peralta CRNA - 08/20/2024 2:18 PM EDT Patient: Whitney Presley Procedure Summary Date: 08/20/24 Room / Location: [facility] ENDOSCOPY 3 / [facility] Anesthesia Start: [...] sounds: normal. 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 Plan discussed with MICROFILM MACHINE OPERATOR. CODE STATUS: documented in this encounter Plan of Treatment Upcoming Encounters Date Type Department Care Team (Late st Contact Info) Description 01/20/2025 3:30 PM EST Office Visit [facility]OLOGY [address] [facility] [address] Robbin Escalante MD [address] [address] documented as of this encounter Procedures Procedure [...] and Staff Patient location during procedure: OR MICROFILM MACHINE OPERATOR/CAA: Junior Zbigniew Jain, DAYNE Indications and Patient [...] documented as of this encounter Care Teams Checkroom Attendant Relationship Specialty Start Date End Date Norma Friedman APRN [address] [place] RAFAEL[place] APPIAH [id number] PCP - General Family Medicine 05/14/24 documented as of this encounter
--- OUTSIDE RECORDS SUMMARY | 2024-08-29 10:00 | XMS_ITS | Encounter Summary ---
Author [facility] Address [address] [place] [address] Care Team Providers Care Turpentine Farmer Name Role Phone IvyKade goldbergjoseseven JOLENE Primary Care Provider + [phone] Reason for Visit * Reason Comments Problem Encounter Details Date Type Department Care Team (Late st Contact Info) Description 08/29/2024 10:00 AM EDT Routine [facility] OBGYN [address] [place] [address] Staci Jain MD [address] [place] [address] [place]: 26w4d Social History Tobacco Use Types Packs/Day Years Used Date Smoking Tobacco: Never Smokeless Tobacco: Never Alcohol Use Standard Drinks/Week Comments Never 0 (1 standard drink = 0.6 oz pur e alcohol) [facility] Utilities Answer Date Recorded In the past 12 months has [employer], gas, oil, or water [email or web address] threatened to shut off services in your [...] hard at all 05/28/2024 [facility] [place] [facility] Health - Occupational Stress Questionnaire Answer Date [...] Visit [facility] GASTROENTEROLOGY [address] [address] Robbin Escalante MD [address] [address] documented as of this encounter Procedures Procedure [...] 6:09 AM EDT Performed at: [address] [id number] Supply Technician: Kevin Harman MD, Phone: [phone] Patient Fasting: N us Staci Jain MD LAB BLOOD ORDERABLES Final Result [facility] ([facility]) [address] [place] [address], [facility] [address] [place] [address], * (ABNORMAL) Comprehensive Metabolic Panel (08/29/2024 11:05 [...] 11:0 5 AM EDT 08/29/2024 Narrative [facility] (AMBULATORY) - 08/30/2024 6:09 AM EDT Performed at: 01 - [place] [address] [address] [place], [place] [id number] Supply Technician: Kevin Harman MD, Phone: [phone] Patient Fasting: N Staci Jain MD LAB BLOOD ORDERABLES Final Result Performing Organization Address City/[facility]/ZIP Co de Phone Number [facility] ([facility]) [address] [place] [address], [place] [phone] [facility] [address] [place] [address], [place] [phone] * (ABNORMAL) POC Urinalysis Dipstick (08/29/2024 10:13 AM EDT) Glucose, UA Negative Negative mg/dL [facility] Protein, POC Trace(A) Negative mg/dL [facility] Urine 08/29/2024 10:1 3 AM EDT us Staci Jain MD POINT OF CARE TEST OR DERABLES Final Result Performing Organization Address City/[facility]/ZIP Co de Phone Number [facility]
[address] [place] [address], documented in this encounter Visit Diagnoses Diagnosis [...] documented as of this encounter Care Teams Turpentine Farmer Relationship Specialty Start Date End Date Norma Friedman APRN [address] [place] G[address] RAFAELA APPIAH [address] PCP - General Family Medicine 05/14/24 documented as of this encounter
--- OUTSIDE RECORDS SUMMARY | 2024-09-23 10:00 | XMS_ITS | Encounter Summary ---
Author Organization [facility] Address [address] [place] [address] Care Team Providers Care Project Geologist Name Role Phone Norma Friedman JOLENE Primary Care Provider +1- [phone] Reason for Referral * Consultation (Routine) - Closed Specialty Diagnoses / Procedures Referred By Contac t Referred To Contact Cardiology Diagnoses Supervision of high risk , antepartum Cardiac arrhythmia, unspecified cardiac arrhythmia type Liborio Weller MD [address] [facility] [address] [place] [address] Phone: tel: fax: Referral ID Status Reason Start Date Expiration Date V isits Requested Visits Authorized [id number] Closed Specialty Services Required 09/23/2024 03/25/2026 1 1 Encounter Details Date Type Department Care Team ([facility] st Contact Info) Description 09/23/2024 10:00 AM EDT Office Visit Medical Office Building Obstetrics and Gynecology [address] [facility], [address] [place] [address] Liborio Weller MD [address] [facility] 140 [place] [address] Supervision of high risk , [...] more drinks on one occasion? Never 09/23/2024 [place] Depression Scale Answer Date Recorded [place] Depression Scale Total 0 09/23/2024 The thought [...] last week on 09/19. She presented to [facility] for chest pain and palpitations. She [...] 09/25 and has otherwise never seen a patient support partner. She has never seen a boom cat operator. She also reports during this admission [...] None N JAGDISH Complications: Potassium (K) deficiency [place] Depression Scale Total: 0 Gynecology History No [...] has a past surgical history that includes [place] tooth extraction (N/A); section, low transverse (N/A); [...] prescription(s): ferosul, potassium chloride cr, prenat mv-min w/qd-hhespx-nci, and thiamine. 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 (Est 37300) Brandee Pringle MD Obstetrics & Gynecology, PGY-2 [...] Description 10/24/2024 8:00 AM EDT Office Visit [facility] [place] [address], [address] [place] [address] Nneka Block MD [address] [place] [address] 12/25/2024 1:00 PM EST Office Visit [facility] Nephrology, Bone & Mineral Metabolism [address] [facility], [address] [place] [address] Scheduled Referrals Name Type Priority [...] Ketones, Urine 40(A) Negative mg/dL POCT Specific [place], Urine 1.015 POCT Blood, Urine Negative Negative POCT pH, Urine >=9.0(A) 5.0 to 8.0 POCT Protein, Urine 100(A) Negative mg/dL POCT Urobilinogen, Urine 0.2 0.2, 1 E.U./dL POCT Nitrite, Urine Negative Negative POCT Leukocyte Esterase, Urine Negative Negative Test Strip Lot Number [id number] Test Strip Lot Expiration 07/2025 Urine Urine [...] as of this encounter Care Teams Project Geologist Relationship Specialty Start Date End Date Norma Friedman APRN [address] [place] [address] PCP - General 09/23/24 documented as of this encounter
--- OUTSIDE RECORDS SUMMARY | 2024-09-25 14:20 | XMS_ITS | Encounter Summary ---
Author Organization Healthcare Address [address] [place] [address] Care Team Providers Care Supervisor Buffing And Pasting Name Role Phone Norma Friedman JOLENE Primary Care Provider +1- [phone] Reason for Referral * Consultation (Routine) - Authorized Specialty Diagnoses / Procedures Referred By Tarik pedersen Referred To Contact Diagnoses Hypokalemia Bill Patrick MD [address] [place] [phone] Phone: tel: fax: Referral ID Status Reason Start Date Expiration Date V isits Requested Visits Authorized [id number] Authorized 09/25/2024 03/27/2026 1 1 * Imaging (Routine) - Authorized Specialty Diagnoses / Procedures Referred By Tarik pedersen Referred To Contact Radiology Diagnoses Hypokalemia Procedures US Renal Complete Bill Patrick MD [address] [place] [phone] Phone: tel: fax: Referral ID Status Reason Start Date Expiration Date V isits Requested Visits Authorized [id number] Authorized 09/25/2024 03/27/2026 1 1 Reason for Visit * Reason Comments Consult * Consultation (Routine) - Closed Specialty Diagnoses / Procedures Referred By Tarik pedersen Referred To Contact Nephrology Diagnoses Hypokalemia Liborio Weller MD [address] [address] Phone: tel: fax: [facility] Nephrology, Bone & Mineral Metabolism [address] , [address] [place] [address] Phone: tel: fax: Referral ID Status Reason Start Date Expiration Date V isits Requested Visits Authorized [id number] Closed Specialty Services Required 09/14/2024 03/16/2026 1 1 Encounter Details Date Type Department Care Team (Late st Contact Info) Description 09/25/2024 2:20 PM EDT Office Visit [facility] Nephrology, Bone & Mineral Metabolism [address] , [address] [place] [address] Bill Patrick MD [address] [place] [address] Hypokalemia (Primary Dx) Social History [...] more drinks on one occasion? Never 09/23/2024 Hilton Depression Scale Answer Date Recorded Hilton Depression Scale Total 0 09/23/2024 The thought [...] 37 weeks andshe did not see a Manager Underwriting at that time. Also notes she has [...] Date SECTION, LOW TRANSVERSE N/A section from [employer] DILATION AND CURETTAGE OF UTERUS N/A Dilation and curettage from [employer] WISDOM TOOTH EXTRACTION N/A Oral Surgery Tooth Extraction [place] Tooth from [employer] [3] Family History Problem Relation Name Age [...] mouth 3 times a day.) Prenat MV-Min w/Ze-[id number]-AYU ( COMPLETE PO) thiamine (Vitamin B-1) 100 [...] Description 10/24/2024 8:00 AM EDT Office Visit [facility] [place] [address], [address] [place] [address] Nneka Block MD [address] [place] [address] 12/25/2024 1:00 PM EST Office Visit [facility] Nephrology, Bone & Mineral Metabolism [address], [address] [place] [address] Scheduled Orders Name Type Priority [...] Chloride, Urine 25 mmol/L 2:03 PM EDT [facility] Urine Urine specimen obtained by clean catch procedure / Unknown Non-blood Collection / Unknown 09/26/2024 10:07 AM EDT 09/26/2024 10:07 AM EDT us Bill Patrick MD LAB URINE ORDERABLES Final Resul t [facility] [address] [place] [address] * Protein, Random, Urine with Creatinine (09/26/2024 10:03 AM EDT) Protein, Urine 26 mg/dL 09/26/2024 12:08 PM EDT [facility] Creatinine, Urine 199 mg/dL 09/26/2024 12:08 PM EDT [facility] Protein/Creati nine Ratio 0.1 mg/mg Creat 09/26/2024 12:08 PM EDT [facility] Urine Urine specimen obtained by clean catch procedure / Unknown Non-blood Collection / Unknown 09/26/2024 10:03 AM EDT 09/26/2024 10:04 AM EDT us Bill Patrick MD LAB URINE ORDERABLES Final Resul t Performing Organization Address City/[facility] Co de Phone Number [facility] [address] [place] [address] * Potassium, urine, random (09/26/2024 10:02 AM EDT) Potassium, Urine 43 mmol/L 09/26/2024 11:55 AM EDT [facility] Urine Urine specimen obtained by clean catch procedure / Unknown Non-blood Collection / Unknown 09/26/2024 10:02 AM EDT 09/26/2024 10:02 AM EDT us Bill Patrick MD LAB URINE ORDERABLES Final Resul t Performing Organization Address [facility] Co de Phone Number [facility] [address] [place] [address] * Osmolality, urine (09/26/2024 10:02 AM EDT) Osmolality, Urine 404 50 - 1,200 mOsm/kg 09/26/2024 1:48 PM EDT [facility] Urine Urine specimen obtained by clean catch procedure / Unknown Non-blood Collection / Unknown 09/26/2024 10:02 AM EDT 09/26/2024 10:02 AM EDT us Bill Patrick MD LAB URINE ORDERABLES Final Resul t Performing Organization Address [facility] Co de Phone Number [facility] [address] [place] [address] * Sodium, urine, random (09/26/2024 10:02 AM EDT) Sodium, Urine 110 mmol/L 09/26/2024 11:55 AM EDT [facility] Urine Urine specimen obtained by clean catch procedure / Unknown Non-blood Collection / Unknown 09/26/2024 10:02 AM EDT 09/26/2024 10:02 AM EDT us Bill Patrick MD LAB URINE ORDERABLES Final Resul t Performing Organization Address City/[facility] Co de Phone Number [facility] [address] [place] [address] * Antinuclear Antibody (JEFFERY), HEp-2, IgG (09/26/2024 9:32 AM EDT) JEFFERY INTERPRETIVE COMMENT See Note 09/28/2024 5:[address] [facility] ([facility]) Anti Nuc Ab Screen <1:80 <1:80 09/28/2024 5:[address] [facility] ([facility]) Blood Venous blood specimen / Unknown Venipuncture / Unknown 09/26/2024 9:32 AM EDT 09/26/2024 9:32 AM EDT Narrative [facility] ([facility]) - 09/28/2024 5:13 PM EDT [...] rings, and cytoplasmic speckled patterns. Performed By: [facility] [address] [place] [address] Lpn Medical Assistant: Brandon Bell MD, PhD CLIA Number: [id number] Bill Patrick MD LAB BLOOD ORDERABLES Final Resul t Performing Organization Address City/[facility]/ZIP Co de Phone Number [facility] (TER[facility]) [address] [place] [address] * Rheumatoid factor, plasma (09/26/2024 9:32 AM EDT) Rheumatoid Factor, Plasma <10 <14 IU/mL 09/26/2024 1:49 PM EDT [facility] Blood Venous blood specimen / Unknown Venipuncture / Unknown 09/26/2024 9:32 AM EDT 09/26/2024 9:32 AM EDT Bill Patrick MD LAB BLOOD ORDERABLES Final Resul t [facility] [address] [place] [address] * SSB (LA) (YARA) ANTIBODY, IGG (09/26/2024 9:32 AM EDT) SSB (LA) (YARA) Antibody, IgG 0 0 - 40 AU/mL 09/28/2024 5:47 PM EDT [facility] ([facility]) Serum Venous blood specimen / Unknown 09/26/2024 9:32 AM EDT 09/26/2024 9:32 AM EDT Narrative [facility]) - 09/28/2024 5:47 PM EDT INTERPRETIVE INFORMATION: [...] (PSS) also have this antibody. Performed By: [facility] [address] [place] [address] Lpn Medical Assistant: Brandon Bell MD, PhD CLIA Number: [id number] us Bill Patrick MD LAB BLOOD ORDERABLES Final Resul t [facility] ([employer]) [address] [place] [address] * SSA 52 and 60 (Ro) (YARA) Antibodies, IgG (09/26/2024 9:32 AM EDT) SSA-52 (RO52) (YARA) Antibody, IgG 2 0 - 40 AU/mL 09/28/2024 5:47 PM EDT [facility] ([employer]) SSA-60 (RO60) (YARA) Antibody, IgG 0 0 - 40 AU/mL 09/28/2024 5:47 PM EDT [facility] ([employer]) Serum 09/26/2024 9:32 AM EDT 09/26/2024 9:32 AM EDT Narrative [facility] ([employer]) - 09/28/2024 5:47 PM EDT INTERPRETIVE INFORMATION: [...] AU/mL or Greater .......... Positive Performed By: [facility] [address] [place] [address] Lpn Medical Assistant: Brandon Bell MD, PhD CLIA Number: [id number] Bill Patrick MD LAB REF LAB BLOOD AND FLUID ORD Final Result [facility]) [address] [place] [address] * (ABNORMAL) Renal function panel (09/26/2024 9:32 AM EDT) Glucose, Plasma 87 74 - 99 mg/dL 09/26/2024 12:24 PM EDT [facility] BUN, Plasma 5(L) 7 - 21 mg/dL 09/26/2024 12:24 PM EDT [facility] Creatinine, Plasma 0.72 0.60 - 1.10 mg/dL 09/26/2024 12:24 PM EDT [facility] BUN/Creatinine Ratio 7 09/26/2024 12:24 PM ED[address] [facility] Sodium, Plasma 135(L) 136 - 145 mmol/L 09/26/2024 12:24 PM EDT [facility] Potassium, Plasma 3.1(L) 3.6 - 4.9 mmol/L 09/26/2024 12:24 PM EDT [facility] Chloride, Plasma 95(L) 97 - 107 mmol/L 09/26/2024 12:24 PM EDT [facility] CO2, Plasma 26 22 - 29 mmol/L 09/26/2024 12:24 PM EDT [facility] Anion Gap 14 6 - 16 mmol/L 09/26/2024 12:24 PM EDT [facility] Total Calcium, Plasma 9.4 8.9 - 10.2 mg/dL 09/26/2024 12:24 PM ED[address] [facility] Phosphorus, Plasma 3.5 2.5 - 4.5 mg/dL 09/26/2024 12:24 PM EDT [facility] Albumin, Plasma 3.6 3.5 - 5.2 g/dL 09/26/2024 12:24 PM EDT [facility] eGFRcr 113.4 mL/min/1.7 3m*2 09/26/2024 12:24 PM EDT [facility] Comment:Reported eGFRcr in m L/min/1.73m2 is based the CKD-EPI 2020 equation that does not use a race coefficient. Blood Venous blood specimen / Unknown Venipuncture / Unknown 09/26/2024 9:32 AM EDT 09/26/2024 9:32 AM EDT us Bill Patrick MD LAB BLOOD ORDERABLES Final Resul t Performing Organization Address City/[facility] Co de Phone Number [facility] [address] [place] [address] * (ABNORMAL) Osmolality (09/26/2024 9:32 AM EDT) Osmolality, Serum 273(L) 275 - 295 mOsm/Kg 09/26/2024 2:10 PM EDT [facility] Blood Venous blood specimen / Unknown Venipuncture / Unknown 09/26/2024 9:32 AM EDT 09/26/2024 9:32 AM EDT us Bill Patrick MD LAB BLOOD ORDERABLES Final Resul t Performing Organization Address City/[facility] de Phone Number [facility] [address] [place] [address] documented in this encounter Visit Diagnoses Diagnosis Hypokalemia- Primary Hypopotassemia documented in this encounter Additional Health Concerns Assessment Noted Time A fall risk assessment has been complete d for the patient 09/25/2024 3:05 PM EDT A Body Mass Index follow-up plan has been documented for the patient 10/05/2024 8:54 PM EDT documented as of this encounter Care Teams Supervisor Buffing And Pasting Relationship Specialty Start Date End Date Norma Friedman APRN [address] [place] [id number] PCP - General 09/23/24 documented as of this encounter
--- OUTSIDE RECORDS SUMMARY | 2024-09-26 08:00 | XMS_ITS | Encounter Summary ---
Author Organization [facility] Address [address] [place] [address] Care Team Providers Care Installer Metal Flooring Name Role Phone Norma Friedman DIGITAL MEDIA ANALYST Primary Care Provider +1- [phone] Lizz Trinh RN Unavailable Unavailable Reason for Referral * Consultation (Routine) - Authorized Specialty Diagnoses / Procedures Referred By Tarik pedersen Referred To Contact Diagnoses Palpitations Syncope and collapse Nneka Block MD [address] [place] [address] Phone: tel: fax: Referral ID Status Reason Start Date Expiration Date V isits Requested Visits Authorized [id number] Authorized 09/26/2024 03/28/2026 1 1 * Cardiac Stress Testing (Routine) - Closed Specialty Diagnoses / Procedures Referred By Contac t Referred To Contact Cardiology Diagnoses Palpitations Syncope and collapse Procedures Adult Patch Monitor - 7 Day Nneka Block MD [address] [place] [address] Phone: tel: fax: Referral ID Status Reason Start Date Expiration Date Visits Re quested Visits Authorized [id number] Closed 09/26/2024 03/28/2026 1 1 Reason for Visit * Consultation (Routine) - Closed Specialty Diagnoses / Procedures Referred By Contac t Referred To Contact Cardiology Diagnoses Supervision of high risk , antepartum Cardiac arrhythmia, unspecified cardiac arrhythmia type WrensLiborio Preciado MD [address] [address] Phone: tel: fax: Referral ID Status Reason Start Date Expiration Date V isits Requested Visits Authorized [id number] Closed Specialty Services Required 09/23/2024 03/25/2026 1 1 Encounter Details Date Type Department Care Team (Late st Contact Info) Description 09/26/2024 8:00 AM EDT Office Visit [facility] [place] [address] [facility], [address] [place] [address] Nneka Block MD [address] [place] [address] Syncope and collapse (Primary Dx); [...] more drinks on one occasion? Never 09/23/2024 [place] Depression Scale Answer Date Recorded [place] Depression Scale Total 0 09/23/2024 The thought [...] Block MD - 09/26/2024 8:00 AM EDT [place] [facility] ([facility]) Problem List #Hypomagnesium and Hypokalemia -- PICC [...] home with no plans. 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 Overall Financial Resource Strain (CARDIA) Difficulty of Paying Living Expenses: Not hard at all Food Insecurity: No Food Insecurity (05/28/2024) Received from [facility] Hunger Vital Sign Within the past 12 months, you worried that your food would run out before you got the money to buymore.: Never true Within the past 12 months, the food you bought just didn't last and you didn't have money to get more.: Never true Transportation Needs: No Transportation Needs (05/28/2024) Received from [facility] PRAPARE - Transportation In the past 12 months, has lack of transportation kept you from medical appointments or from getting medications?: No In the past 12 months, has lack of transportation kept you from meetings, work, or from getting things needed for daily living?: No Physical Activity: Sufficiently Active (05/28/2024) Received from [facility] Exercise Vital Sign On average, how many days per week do you engage in moderate to strenuous exercise (like a brisk walk)?: 5 days On average, how many minutes do you engage in exercise at this level?: 40 min Stress: Stress Concern Present (05/27/2024) Received from [facility] [place] [facility] [employer] - Occupational Stress Questionnaire Feeling of Stress : To some extent Social Connections: Not At Risk (05/28/2024) Received from [facility] Family and Community Support If for any reason you need help with day-to-day activities such as bathing, preparing meals, shopping, managing finances, etc., do you get the help you need?: I don't need any help How often do you feel lonely or isolated from those around you?: Sometimes Intimate Partner Violence: Not At Risk (08/19/2024) Received from [facility] Abuse Screen Feels Unsafe at Home or Work/School: no Feels Threatened by Someone: no Does Anyone Try to Keep You From Having Contact with Others or Doing Things Outside Your Home?: no Physical Signs of Abuse Present: no Housing Stability: Not At Risk (08/20/2024) Received from [facility] Housing Stability Current Living Arrangements: home [...] Description 10/24/2024 8:00 AM EDT Office Visit [facility] [place] [address], [address] [place] [address] Nneka Block MD [address] [place] [address] 12/25/2024 1:00 PM EST Office Visit [facility] Nephrology, Bone & Mineral Metabolism [address], [address] [place] [address] Pending Results Name Type Priority [...] ECG Atrial Rate 84 BPM MUSE ECG SC Interval 148 ms MUSE ECG QRSD Interval 74 ms MUSE ECG QT Interval 374 ms MUSE ECG QTC Interval 441 ms MUSE ECG P Burchard 60 degrees MUSE ECG R [place]urchard 36 degrees MUSE ECG T Wave Burchard 55 degrees MUSE ECG Diagnosis Normal sinus rhythm with sinus arrhythmia MUSE ECG Diagnosis Normal ECG MUSE ECG Diagnosis MUSE ECG Diagnosis Confirmed by Abad South ([id number]) on 09/26/2024 12:13:59 PM MUSE ECG 09/26/2024 [...] documented as of this encounter Care Teams Installer Metal Flooring Relationship Specialty Start Date End Date Norma Friedman APRN [address] [place], [place] [id number] PCP - General 09/23/24 Lizz Trinh, RN [facility] Registered Nurse Cardiology 09/26/24 documented as of this encounter
--- OUTSIDE RECORDS SUMMARY | 2024-09-26 09:06 | XMS_ITS | Encounter Summary ---
Author Organization [facility] Address [address] [place] [address] Care Team Providers Care Terminal Operator Name Role Phone Elder Kadedev Coy EVENTS SPECIALIST Primary Care Provider +1- [phone] Lizz Trinh RN Unavailable Unavailable Reason for Referral * Cardiac Stress Testing (Routine) - Closed Specialty Diagnoses / Procedures Referred By Tarik pedersen Referred To Contact Cardiology Diagnoses Palpitations Syncope and collapse Procedures Adult Patch Monitor - 7 Day Nneka Block MD [address] [place] [address] Phone: tel: fax: Referral ID Status Reason Start Date Expiration Date Visits Re quested Visits Authorized [id number] Closed 09/26/2024 03/28/2026 1 1 Reason for Visit * Cardiac Stress Testing (Routine) - Closed Specialty Diagnoses / Procedures Referred By Tarik pedersen Referred To Contact Cardiology Diagnoses Palpitations Syncope and collapse Procedures Adult Patch Monitor - 7 Day Nneka Block MD [address] [place] [address] Phone: tel: fax: Referral ID Status Reason Start Date Expiration Date Visits Re quested Visits Authorized [id number] Closed 09/26/2024 03/28/2026 1 1 Encounter Details Date Type Department Care Team (Latest Contact Info) Description 09/26/2024 9:06 AM EDT - 09/26/2024 11:59 PM EDT Hospital Encounter Medical Office Building Cardiac Diagnostic Testing Medical Office Building Echo Lab [address] [facility], [address] [place] [address] Palpitations; Syncope and collapse Discharge [...] more drinks on one occasion? Never 09/23/2024 [place] Depression Scale Answer Date Recorded [place] Depression Scale Total 0 09/23/2024 The thought [...] 2 times a day. 09/02/2024 Prenat MV-Min w/Ss-Qraxji-WNK ( COMPLETE PO) 12/25/2018 thiamine (Vitamin B-1) 100 MG tablet Take 1 tablet by mouth 1 time each day. 09/01/2024 documented as of this encounter Plan of Treatment Upcoming Encounters Date Type Department Care Team (Late st Contact Info) Description 10/24/2024 8:00 AM EDT Office Visit [facility] [place] [address] [facility], [address] [place] [address] Nneka Block MD [address] [place] [address] 12/25/2024 1:00 PM EST Office Visit [facility] Nephrology, Bone & Mineral Metabolism [address] [facility], [address] [place] [address] Pending Results Name Type Priority [...] documented as of this encounter Care Teams Terminal Operator Relationship Specialty Start Date End Date Norma Friedman APRN [address] [place] [address] PCP - General 09/23/24 Lizz Trinh, RN [facility] Registered Nurse Cardiology 09/26/24 documented as of this encounter
--- OUTSIDE RECORDS SUMMARY | 2024-10-08 02:21 | XMS_ITS | Clinical Summary ---
Author Organization [facility] [place] [address] Phone Care Team Providers Care Substitute Teacher Name Role Phone Unavailable Primary Care [...] migh t be different from the original. [facility] - Edwardo Ojeda MD Interventional Pain Protocol: NS Appt 03/29/22 Letter Sent Maxime report completed (EVERY 3 MONTHS) ( 03/23/22) Pharmacy: [facility] [address] [place] [phone] [phone] [facility] south - [phone] No known active problems Social History Tobacco [...] patient's age to complete this topic Insurance [employer] [facility] [place] [address] [place] [id number] [facility] [employer] [facility] [place]
--- OUTSIDE RECORDS SUMMARY | 2024-10-08 02:21 | XMS_ITS | Encounter Summary ---
Author Organization Healthcare Address [address] [place] [address] Care Team Providers Care Food Safety Manager Name Role Phone Norma burger JOLENE Primary Care Provider +[phone]- [phone] Lizz Trinh RN Unavailable Unavailable Encounter Details Date Type Department Care Team (Late Contact Info) Description 07/22/2024 Community [facility] Community Practice [address] [place] [address] Sandy Cardenas MD 1700 [facility] [address] [place] [address] Social History Tobacco Use Types Packs/Day Years [...] Description 10/24/2024 8:00 AM EDT Office Visit [facility] [place] [address] [facility], [address] [place] [address] Nneka Block MD [address] [place] [address] 12/25/2024 1:00 PM EST Office Visit [facility] Nephrology, Bone & Mineral Metabolism [address] [facility], [address] [place] [address] documented as of this encounter Visit Diagnoses Not on filedocumented in this encounter Care Teams Food Safety Manager Relationship Specialty Start Date End Date Norma Friedman, JOLENE [address] [place], [place] [id number] PCP - General 09/23/24 Lizz Trinh, RN [facility] Registered Nurse Cardiology 09/26/24 documented as of this encounter
--- OUTSIDE RECORDS SUMMARY | 2024-10-08 02:21 | XMS_ITS | Encounter Summary ---
[facility] Address [address] [place] [id number] Care Team Providers Care Senior Firmware Engineer Name Role Phone Ivyashlyn Norma FERNÁNDEZ Primary Care Provider + [phone] Encounter Details Date Type Department Care Team (Late st Contact Info) Description 06/26/2024 Results Follow-Up [facility] OBGYN [address] [address] Koby Roberts MD 1700 [facility] [address] [place] [address] Social History Tobacco Use Types Packs/Day Years Used Date Smoking Tobacco: Never Smokeless Tobacco: Never Alcohol Use Standard Drinks/Week Comments Never 0 (1 standard drink = 0.6 oz pur e alcohol) [facility] Utilities Answer Date Recorded In the past 12 months has [employer], gas, oil, or water [employer] threatened to shut off services in your [...] and heating? Not hard at all 05/28/2024 [facility] [place] of Occupat ional Health - Occupational Stress [...] Office Visit [facility] [address] [facility] [address] Robbin Escalante MD [address] [address] documented as of this encounter Visit Diagnoses Not on filedocumented in this encounter Additional Health Concerns Assessment Noted Time PHQ-2 Depression Total Score: 2 05/28/19 25 4:39 PM EDT documented as of this encounter Care Teams Senior Firmware Engineer Relationship Specialty Start Date End Date Norma Friedman APRN [address] [place] [address] [place] [address] PCP - General Family Medicine 05/14/24 documented as of this encounter
--- OUTSIDE RECORDS SUMMARY | 2024-10-08 02:21 | XMS_ITS | Encounter Summary ---
Author Organization [facility] Address [address] [place] [address] Care Team Providers Care Medicaid Nurse Name Role Phone Elder Kadedev Coy APRN Primary Care Provider [phone]- [phone] Lizz Trinh RN Unavailable Unavailable Reason for Referral * Consultation (Routine) - Authorized Specialty Diagnoses / Procedures Referred By Tarik pedersen Referred To Contact Nephrology Diagnoses History of proteinuria syndrome care, subsequent , second trimester Staci Jain MD [address] [address] Phone: tel: fax: [facility] Nephrology, Bone & Mineral Metabolism [address] [facility], [address] [place] [address] Phone: tel: fax: Referral ID Status Reason Start Date Expiration Date Visits Requested Visits Authorized [id number] Authorized Specialty Services Required 07/22/2024 01/21/2026 1 1 Encounter Details Date Type Department Care Team (Late st Contact Info) Description 07/22/2024 Community Orders Community Practice [address] [place] [address] Staci Jain MD 1700 [place] [address] History of proteinuria syndrome (Primary Dx); care, [...] Description 10/24/2024 8:00 AM EDT Office Visit [facility] [place] [address] [facility], [address] [place] [address] Nneka Block MD [address] [place] [address] 12/25/2024 1:00 PM EST Office Visit [facility] Nephrology, Bone & Mineral Metabolism [address] [facility], [address] [place] [address] Scheduled Referrals Name Type Priority Associated Diagnoses Orde r Schedule Ambulatory referral to Nephrology Outpatient Referral Routine History of proteinuria syndrome care, subsequent , second trimester Expected: 07/22/2024 (Approximate), Expires: 01/23/2026 documented as of this encounter Visit Diagnoses Diagnosis History of proteinuria syndrome- Primary care, subsequent , second trimester documented in this encounter Care Teams Medicaid Nurse Relationship Specialty Start Date End Date Norma Friedman APRN [address] [place] [id number] PCP - General 09/23/24 Lizz Trinh, RN [facility] Registered Nurse Cardiology 09/26/24 documented as of this encounter
--- OUTSIDE RECORDS SUMMARY | 2024-10-08 02:21 | XMS_ITS | Encounter Summary ---
[facility] [address] [place] [address] Care Team Providers Care Coin Purse Framer Name Role Phone Norma Friedman APRN Primary Care Provider + [phone] Encounter Details Date Type Department Care Team (Late st Contact Info) Description 08/19/2024 Telephone [facility] OBGYN [address] [place] [address] Jacey Mathews, SOFTBALL CORE MOLDER 1700 [facility] [address] [place] [address] Social History Tobacco Use Types Packs/Day Years Used Date Smoking Tobacco: Never Smokeless Tobacco: Never Alcohol Use Standard Drinks/Week Comments Never 0 (1 standard drink = 0.6 oz pur e alcohol) [facility] Utilities Answer Date Recorded In the past 12 months has [employer]mi, [employer], oil, or water [employer] threatened to shut off services in your [...] and heating? Not hard at all 05/28/2024 [facility] of Occupat ional [facility] - Occupational Stress Questionnaire Answer Date [...] Office Visit [facility] GASTROENTEROLOGY [address] [address] Robbin Escalante MD [address] [address] documented as of this encounter Visit Diagnoses Not on filedocumented in this encounter Additional Health Concerns Assessment Noted Time PHQ-2 Depression Total Score: 2 05/28/19 25 4:39 PM EDT documented as of this encounter Care Teams Coin Purse Framer Relationship Specialty Start Date End Date Norma Friedman APRN [address] [place] [address] [place] [address] PCP - General Family Medicine 05/14/24 documented as of this encounter
--- OUTSIDE RECORDS SUMMARY | 2024-10-08 02:22 | XMS_ITS | Encounter Summary ---
Author [facility] [address] [place] [address] Care Team Providers Care Cut Off Operator Scorer Name Role Phone Norma Friedman APRN Primary Care Provider + [phone] Encounter Details Date Type Department Care Team (Late st Contact Info) Description 07/07/2024 Results Follow-Up [facility] OBGYN [address] [place] [address] [place] [address] Kelly Delgado APRN [address] [facility] [address] [place] [address] Social History Tobacco Use Types Packs/Day Years Used Date Smoking Tobacco: Never Smokeless Tobacco: Never Alcohol Use Standard Drinks/Week Comments Never 0 (1 standard drink = 0.6 oz pur e alcohol) [facility] Utilities Answer Date Recorded In the past 12 months has [employer], gas, oil, or water [employer] threatened to shut off services in your [...] and heating? Not hard at all 05/28/2024 [facility] of Occupat ional Health - [...] GED or equivalent No 05/28/2024 Preferred Language Puerto Rican 05/28/2024 PHQ-2 Answer Date Recorded Patient [...] Visit [facility]STROENTEROLOGY [address] [facility] [address] Robbin Escalante MD [address] [address] documented as of this encounter Visit Diagnoses Not on filedocumented in this encounter Additional Health Concerns Assessment Noted Time PHQ-2 Depression Total Score: 2 05/28/19 25 4:39 PM EDT documented as of this encounter Care Teams Cut Off Operator Scorer Relationship Specialty Start Date End Date Norma Friedman APRN [address] [place] [address] [place] [address] PCP - General Family Medicine 05/14/24 documented as of this encounter
--- OUTSIDE RECORDS SUMMARY | 2024-10-08 02:22 | XMS_ITS | Referral Summary ---
Author Organization [facility] ([place], [place], [place], [place]) Address [address] [place] [address] Care Team Providers Care Manager Corporate Communications Name Role Phone Unavailable Primary Care Provider [...]
--- OUTSIDE RECORDS SUMMARY | 2024-10-08 02:22 | XMS_ITS | Encounter Summary ---
[facility] Address [address] [place] [address] Care Team Providers Care Mold Cleaner Name Role Phone Elder Norma FERNÁNDEZ Primary Care Provider + [phone] Encounter Details Date Type Department Care Team (Latest Contact Info) Description 08/19/2024 Travel Social History Tobacco Use Types Packs/Day Years Used Date Smoking Tobacco: Never Smokeless Tobacco: Never Alcohol Use Standard Drinks/Week Comments Never 0 (1 standard drink = 0.6 oz pur e alcohol) [facility] Utilities Answer Date Recorded In the past 12 months has [employer], gas, oil, or water company threatened [...] and heating? Not hard at all 05/28/2024 [facility] [place] of Occupat ional Health - Occupational Stress [...] GED or equivalent No 05/28/2024 Preferred Language Nigerien 05/28/2024 PHQ-2 Answer Date Recorded Patient Health [...] 2:34 PM EDT Nneka Cross RN * [place] Suicide Severity Rating Scale (Screener/Recent Self-Report) Question Answer Date of Assessment Author 6. Suicidal Behavior (Lifetime) No 2:34 PM EDT Nneka Cross RN documented as of this encounter Plan of Treatment Upcoming Encounters Date Type Department Care Team (Late st Contact Info) Description 01/20/2025 3:30 PM EST Office Visit [facility] GASTROENTEROLOGY [address] [address] Robbin Escalante MD [address] [address] documented as of this encounter Visit Diagnoses Not on filedocumented in this encounter Additional Health Concerns Assessment Noted Time PHQ-2 Depression Total Score: 2 05/28/19 25 4:39 PM EDT documented as of this encounter Care Teams Mold Cleaner Relationship Specialty Start Date End Date Norma Friedman APRN [address] [place] [address] [place] [address] PCP - General Family Medicine 05/14/24 documented as of this encounter
--- OUTSIDE RECORDS SUMMARY | 2024-10-08 02:22 | XMS_ITS ---
Author Organization [facility] Address [address] [place] [address] Care Team Providers Care Machinist Supervisor Name Role Phone Unavailable Primary Care Provider Unavailabl e Transplant Episode Kidney Potential Donor [facility] ([place], [place]) - [facility] Referred on 05/03/2022 Marked as Deferred on 05/04/2022 Reason: Other Kidney CoordinatorNadine Augustin R.N. Phone: N/A Fax: N/A Email: N/A Care Team Name Role Phone Fax Email Nadine Augustin R.N. Kidney Coordinator N/A N/A N/A Events Pre-Donation Referred: 05/03/2022
--- OUTSIDE RECORDS SUMMARY | 2024-10-08 02:22 | XMS_ITS | Clinical Summary ---
Author Organization [facility] Address [address] [place] [address] Care Team Providers Care Car Detailer Name Role Phone Unavailable Primary Care Provider Unavailabl e Source Comments [facility] is fully rolled out with thefollowing exceptions:General Clinical Research [facility] Social History Tobacco Use Types Packs/Day [...]
--- OUTSIDE RECORDS SUMMARY | 2024-10-08 02:22 | XMS_ITS | Encounter Summary ---
[facility] Address [address] [place] [id number] Care Team Providers Care Manager Rn Case Name Role Phone Ivyashlyn Norma FERNÁNDEZ Primary Care Provider + [phone] Encounter Details Date Type Department Care Team (Late st Contact Info) Description 09/02/2024 Telephone [facility] OBGYN [address] [address] Staci Jain MD [address] [place] [id number] Social History Tobacco Use Types Packs/Day Years Used Date Smoking Tobacco: Never Smokeless Tobacco: Never Alcohol Use Standard Drinks/Week Comments Never 0 (1 standard drink = 0.6 oz pur e alcohol) [facility] Utilities Answer Date Recorded In the past 12 months has [employer], [employer], oil, or water [employer] threatened to shut off services in your [...] PM EDT She just got d/c'd from [facility] 2 hours ago and they gave her a total 10 MLE of K+ and 3 units of Mag and 2 liters of LR. She has decided to transfer care to [facility] as it iscloser to her like 15 min away. She wants you (Dr. Jain) to know this has nothing to you but rather the nurses and cooperative education coordinator doctor did not relay the labs to you in a faster fashion. She said you can call her if you want and she is not angry. Dr. Jain was notified. * Telephone Encounter - Frederick Gruber RN - 09/02/2024 3:10 PM EDT [employer] message sent to the pt regarding outpt infusion apt tomorrow at [place]. documented in this encounter Plan of Treatment Upcoming Encounters Date Type Department Care Team (Late st Contact Info) Description 01/20/2025 3:30 PM EST Office Visit [facility] GASTROENTEROLOGY [address] [place] [address] [place] [address] Robbin Escalante MD [address] [facility] [address] [place] [address] documented as of this encounter Visit Diagnoses Not on filedocumented in this encounter Additional Health Concerns Assessment Noted Time PHQ-2 Depression Total Score: 2 05/28/19 25 4:39 PM EDT documented as of this encounter Care Teams Manager Rn Case Relationship Specialty Start Date End Date Norma Friedman APRN [address] [place] [address] [place] [address] PCP - General Family Medicine 05/14/24 documented as of this encounter
--- OUTSIDE RECORDS SUMMARY | 2024-10-08 02:22 | XMS_ITS ---
Author Organization [facility] Address [address] [place] [address] Care Team Providers Care Tying Machine Operator Name Role Phone Norma Friedman APRN Primary Care Provider [phone] Motherhood Connection Status:Engaged (Active) Start date:05/23/2024 Enrollment date:05/23/2024 Case Team Name Relationship Phone Bindu Castellon RN Nurse Navigator Christy Zabala RN(Responsible Staff) Nurse Navig ator Continued Care and Services Coordination
--- OUTSIDE RECORDS SUMMARY | 2024-10-08 02:22 | XMS_ITS | Encounter Summary ---
[facility] [address] [place] [id number] Care Team Providers Care Neurology Physician Assistant Name Role Phone Ivyashlyn Norma FERNÁNDEZ Primary Care Provider + [phone] Encounter Details Date Type Department Care Team (Late st Contact Info) Description 08/28/2024 Telephone [facility] OBGYN [address] [address] Satci aJin MD [address] [place] [id number] Social History Tobacco Use Types Packs/Day Years Used Date Smoking Tobacco: Never Smokeless Tobacco: Never Alcohol Use Standard Drinks/Week Comments Never 0 (1 standard drink = 0.6 oz pur e alcohol) [facility] Utilities Answer Date Recorded In the past 12 months has [employer], gas, oil, or water [employer] threatened to shut off services in your [...] encounter Miscellaneous Notes * Telephone Encounter - Sjeal Escobar APRN - 08/28/2024 10:17 AM EDT SWP. She is needing to sit with a family member admitted to [facility] today and does not know if she can make it back for labs (BMP). She does have an appt in [facility] at 10 am tomorrow. Advisedthat [...] states she was supposed to come into [place] office today to have labs drawn however sheis currently hung up at [facility] is wondering if she could just have labs drawn there? documented in this encounter Plan of Treatment Upcoming Encounters Date Type Department Care Team (Late st Contact Info) Description 01/20/2025 3:30 PM EST Office Visit [facility] GASTROENTEROLOGY 17[address] [facility] [address] [place] [address] Robbin Escalante MD 17[address] [facility] [address] [place] [address] documented as of this encounter Visit Diagnoses Not on filedocumented in this encounter Additional Health Concerns Assessment Noted Time PHQ-2 Depression Total Score: 2 05/28/19 25 4:39 PM EDT documented as of this encounter Care Teams Neurology Physician Assistant Relationship Specialty Start Date End Date Norma Friedman APRN [address] [place] [address] [place] [address] PCP - General Family Medicine 05/14/24 documented as of this encounter
--- OUTSIDE RECORDS SUMMARY | 2024-10-08 02:22 | XMS_ITS | Encounter Summary ---
[facility] [address] [place] [address] Care Team Providers Care Jailer/Training Officer Name Role Phone Ivyashlyn Norma FERNÁNDEZ Primary Care Provider + [phone] Encounter Details Date Type Department Care Team (Late st Contact Info) Description 08/27/2024 Telephone [facility] OBGYN [address] [place] [address] Staci Jain MD 1700 [facility] [address] [place] [address] Social History Tobacco Use Types Packs/Day Years Used Date Smoking Tobacco: Never Smokeless Tobacco: Never Alcohol Use Standard Drinks/Week Comments Never 0 (1 standard drink = 0.6 oz pur e alcohol) [facility] Utilities Answer Date Recorded In the past 12 months has [employer], [employer], oil, or water [employer] threatened to shut off services in your [...] hard at all 05/28/2024 [facility] [place] of Occupat ional Health - [...] GED or equivalent No 05/28/2024 Preferred Language Azerbaijani 05/28/2024 PHQ-2 Answer Date Recorded Patient Health [...] Office Visit [facility] GASTROENTEROLOGY [address] [address] Robbin Escalante MD [address] [address] documented as of this encounter Visit Diagnoses Diagnosis History of hypokalemia- Primary documented in this encounter Additional Health Concerns Assessment Noted Time PHQ-2 Depression Total Score: 2 05/28/19 25 4:39 PM EDT documented as of this encounter Care Teams Jailer/Training Officer Relationship Specialty Start Date End Date Norma Friedman APRN [address] [place] [address] [place] [address] PCP - General Family Medicine 05/14/24 documented as of this encounter
--- OUTSIDE RECORDS SUMMARY | 2024-10-08 02:22 | XMS_ITS | Encounter Summary ---
Author [facility] [address] [place] [id number] Care Team Providers Care Operations Technician Name Role Phone IvyKade [email or web address] JOLENE Primary Care Provider + [phone] Encounter Details Date Type Department Care Team (Late st Contact Info) Description 09/03/2024 Results Follow-Up [facility] OBGYN [address] [place] [address] Staci Jain MD 1700 [facility] [address] [place] [address] Social History Tobacco Use Types Packs/Day Years Used Date Smoking Tobacco: Never Smokeless Tobacco: Never Alcohol Use Standard Drinks/Week Comments Never 0 (1 standard drink = 0.6 oz pur e alcohol) [facility] Utilities Answer Date Recorded In the past 12 months has [employer], gas, oil, or water [employer] threatened to shut off services in your [...] Office Visit [facility] GASTROENTEROLOGY [address] [address] Robbin Escalante MD [address] [address] documented as of this encounter Visit Diagnoses Not on filedocumented in this encounter Additional Health Concerns Assessment Noted Time PHQ-2 Depression Total Score: 2 05/28/19 4:39 PM EDT documented as of this encounter Care Teams Operations Technician Relationship Specialty Start Date End Date Norma Friedman APRN [address] [place] [address] [place] [address] PCP - General Family Medicine 05/14/24 documented as of this encounter
--- OUTSIDE RECORDS SUMMARY | 2024-10-08 02:22 | XMS_ITS | Encounter Summary ---
[facility] Organization [facility] Address [address] [place] [address] Care Team Providers Care Author Agent Name Role Phone Elder Norma FERNÁNDEZ Primary Care Provider + [phone] Encounter Details Date Type Department Care Team (Latest Contact Info) Description 08/29/2024 Travel Social History Tobacco Use Types Packs/Day Years Used Date Smoking Tobacco: Never Smokeless Tobacco: Never Alcohol Use Standard Drinks/Week Comments Never 0 (1 standard drink = 0.6 oz pur e alcohol) [facility] Utilities Answer Date Recorded In the past 12 months has [employer] electric, gas, oil, or water company threatened [...] and heating? Not hard at all 05/28/2024 [facility] [place] of Occupat ional Health - Occupational Stress [...] GED or equivalent No 05/28/2024 Preferred Language Qatari 05/28/2024 PHQ-2 Answer Date Recorded Patient Health [...] Visit [facility] GA[facility] [address] [facility] [address] [place] [id number] Robbin Escalante MD [address] [facility] [address] [place] [address] documented as of this encounter Visit Diagnoses Not on filedocumented in this encounter Additional Health Concerns Assessment Noted Time PHQ-2 Depression Total Score: 2 05/28/19 25 4:39 PM EDT documented as of this encounter Care Teams Author Agent Relationship Specialty Start Date End Date Norma Friedman APRN [address] [place] G3 RAFAELA APPIAH [id number] PCP - General Family Medicine 05/14/24 documented as of this encounter
--- OUTSIDE RECORDS SUMMARY | 2024-10-08 02:22 | XMS_ITS | Encounter Summary ---
Author Organization [employer] ([place], [place], [place], [place]) Address [address] [place] [address] Care Team Providers Care Child Care Cook Name Role Phone Unavailable Primary Care Provider Unavailabl e Encounter Details Date Type Department Care Team (Late st Contact Info) Description 07/17/2019 Transcribed Document [facility] Family Medicine [address] [place] [address] ProviderEleno MD [address] [place], [place] [address] Social History Tobacco Use Types Packs/Day Years [...] On: 07/17/2019 19:17 EDT by KARLENE MCKINLEY corporate development manager Process Patient Disposition : AMA/Elope/LWBS KARLENE MCKINLEY RN - 07/17/2019 23:04 EDT LWBS/Elopement/AMA Patient Left Prior To Medical Screening : Unseen Patient Elopement : Yes Provider Notified : No KARLENE MCKINLEY RN - 07/17/2019 23:04 EDT Electronically signed by Quintin Forte Conversion Railroad Car Cleaning Supervisor Cerner at 05/27/2022 5:18 PM CDT documented in this encounter Plan of Treatment Not on file documented as of this encounter Visit Diagnoses Not on filedocumented in this encounter
--- OUTSIDE RECORDS SUMMARY | 2024-10-08 02:23 | XMS_ITS | Encounter Summary ---
Author Organization Healthcare Address [address] [place] [address] Care Team Providers Care Mailroom Supervisor Name Role Phone Norma Friedman JOLENE Primary Care Provider [phone] Lizz Trinh RN Unavailable Unavailable Encounter Details [...] more drinks on one occasion? Never 09/23/2024 [place] Depression Scale Answer Date Recorded [place] Depression Scale Total 0 09/23/2024 The thought [...] Description 10/24/2024 8:00 AM EDT Office Visit [facility] [place] [address] [facility], [address] [place] [address] Nneka Block MD [address] [place] [address] 12/25/2024 1:00 PM EST Office Visit [facility] Nephrology, Bone & Mineral Metabolism [address] [facility], [address] [place] [address] documented as of this encounter Visit Diagnoses Not on filedocumented in this encounter Additional Health Concerns Assessment Noted Time A fall risk assessment has been complete d for the patient 09/26/2024 8:15 AM EDT A Body Mass Index follow-up plan has been documented for the patient 09/27/2024 10:22 AM EDT documented as of this encounter Care Teams Mailroom Supervisor Relationship Specialty Start Date End Date Norma Friedman APRN [address] [place] [id number] PCP - General 09/23/24 Lizz Trinh, RN [facility] Registered Nurse Cardiology 09/26/24 documented as of this encounter
--- OUTSIDE RECORDS SUMMARY | 2024-10-08 02:23 | XMS_ITS | Clinical Summary ---
Author Organization [facility] Address [address] [place] [address] Care Team Providers Care Electronic Repair Troubleshooter Name Role Phone Norma Friedman APRN Primary Care Provider + [phone] Allergies Active Allergy Reactions Criticality Noted Date [...] Type Department Care Team Description 5 Documentation [facility] LABOR DELIVERY [address] [place] [address] Christy Zabala RN 5 Results Follow-Up [facility]YN [address] [place] [address] Rob Wharton MD 5 Telephone [facility] OBGYN [address] [facility] [address] [place] [address] Rob Wharton MD 5 10:00 AM EDT Routine [facility] OBGYN [address] [place] [address] Rob Wharton MD [place]: 26w4d 5 Travel 5 Telephone [facility] OBGYN [address] [address] Rob Wharton MD 5 Telephone [facility] OBGYN [address] [place] [address] Rob Wharton MD 5 1:44 PM EDT Anesthesia Event [facility] ENDO SUITES [address] [place] [address] Akash Anguiano MD Lanham, John, CRNA 5 1:33 PM EDT - 5 2:05 PM EDT Surgery [facility] ENDO SUITES [address] [place] [address] Blu Alvarado MD ESOPHAGOGASTRODUODENOSCOPY [03047 (CPT )] 5 1:59 PM EDT - 5 4:28 PM EDT Hospital Encounter [facility] ANTEPARTUM [address] [place] [address] Rob Wharton MD Brunner, Mark I, MD Dysphagia, unspecified type (Primary Dx) Discharge Disposition: Home or Self Care 5 10:15 AM EDT Routine [facility] OBGYN [address] [place] [address] Jacey Mathews, SPECIAL EDUCATION ITINERANT TEACHER [place]: w 5 Telephone [facility] OBGYN [address] [place] [address] Jacey Mathews, SPECIAL EDUCATION ITINERANT TEACHER 5 Travel 5 Patient Outreach [facility] LABOR DELIVERY [address] [place] [address] Christy Zabala RN 5 9:10 AM EDT Routine [facility] OBGYN [address] [facility] [place] [address] [place] [address] Rob Wharton MD [place]: 5 8:00 AM EDT Office Visit [facility] MATERNAL MEDICINE [address] [facility] [address] [place] [address] Sebastian Larsen MD History of prior with small for gestational age (Primary Dx) 5 7:44 AM EDT - 5 11:59 PM EDT Hospital Encounter [facility] US PER DIAG CTR [address] [place] [address] Kelly Delgado, SPECIAL EDUCATION ITINERANT TEACHER care, antepartum, unspecified ; High risk due to history of labor, antepartum; History of prior with small for gestational age Discharge Disposition: Home or Self Care 5 Travel from Last 3 Months Family [...] drink = 0.6 oz pur e alcohol) [facility] Utilities Answer Date Recorded In [...] and heating? Not hard at all 05/28/2024 [facility] of Occupat ional Health - Occupational Stress [...] Visit [facility] GASTROENTEROLOGY [address] [facility] [address] [place] [address] Robbin Escalante MD [address] [facility] [address] [place] [address] Health Maintenance Due Date Last [...] NONSTRESS TEST Routine 08/19/2024 4:17 PM EDT [facility] DIAGNOSTIC CENTER Routine 08/19/2024 3:25 PM [...] - 08/30/2024 6:09 AM EDT Performed at: [address] [place] [id number] Acid Changer: Kevin Harman MD, Phone: [phone] Patient Fasting: N Rob Wharton MD LAB BLOOD ORDERABLES Final Result [facility] (AMBULATORY) [address] [id number], [facility] [address] [place] [id number], * (ABNORMAL) Comprehensive Metabolic Panel (08/29/2024 11:05 AM EDT) Only the most recent of2 resultswithin the time period is included. [facility] Glucose 72 65 - 99 mg/dL [facility] [...] - 08/30/2024 6:09 AM EDT Performed at: [address] [place] [id number] Acid Changer: Kevin Harman MD, Phone: [phone] Patient Fasting: N us Rob Wharton MD LAB BLOOD ORDERABLES Final Result [facility] (AMBULATORY) [address] [place] [address], [place] [phone] [facility] [address] [place] [address], [place] [phone] * (ABNORMAL) POC Urinalysis Dipstick (08/29/2024 10:13 [...] [facility]
[address] [place] [address], * BH AN ETT [employer]WAY (08/20/2024 2:02 PM EDT) Narrative Liborio Pearlta CRNA - 08/20/2024 2:02 PM EDT Liborio [...] EDT) Case Report Surgical Pathology Report Case: [id number] Authorizing Provider: Blu Alvarado MD Collected: 08/20/2024 01:55 PM Ordering Location: [facility] Received: 08/20/2024 02:14 PM ENDO SUITES Pathologist: Khalida Rhoades DO Specimen: Gastric, Antrum, antrum bx for path 08/22/2024 9:18 AM EDT [facility] Clinical Information Dysphagia, unspecified type 08/22/2024 9:18 AM EDT [facility] Final Diagnosis Stomach, antrum, biopsy: 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 pylori is negative (no organisms are identified) Negative for intestinal metaplasia, dysplasia, or malignancy 08/22/2024 9:18 AM EDT [facility] at 0918 EDT Gross Description 1. Gastric, Antrum. Received in formalin labeled antrum biopsy is a 0.4 x 0.2 x 0.2 cm pink-see soft tissue fragment submitted entirely in a single cassette. HDM 08/22/2024 9:18 AM EDT [facility] Microscopic Description The slides are reviewed and demonstrate histopathologic features supporting the above rendered diagnosis. 08/22/2024 9:18 AM EDT [facility] Tissue Pyloric antrum structure / Unknown 08/20/2024 1:55 PM EDT 08/20/2024 2:14 PM EDT us Blu Alvarado MD PATHOLOGY/CYTOLOGY ORDERABLES Final Result [facility]
[address] [place] [address], [place] [phone] * Upper GI Endoscopy (08/20/2024 1:09 PM EDT) us Blu Alvarado MD INTERFACE NEEDS Final Result * (ABNORMAL) Basic Metabolic Panel (08/20/2024 5:25 AM EDT) [facility] Glucose 84 65 - 99 mg/dL 08/20/2024 6:13 AM T [facility] BUN 2.3(L) 6.0 - 20.0 mg/dL 08/20/2024 6:13 AM [facility] Creatinine 0.51(L) 0.57 - 1.00 mg/dL 08/20/2024 6:13 AM EDT [facility] Sodium 139 136 - 145 mmol/L 08/20/2024 6:13 AM EDT [facility] Potassium 3.5 3.5 - 5.2 mmol/L 08/20/2024 6:13 AM T [facility] Chloride 109(H) 98 - 107 mmol/L 08/20/2024 6:[facility] CO2 23.5 22.0 - 29.0 mmol/L 08/20/2024 6:13 AM T [facility] Calcium 7.8(L) 8.6 - 10.5 mg/dL 08/20/2024 6:13 AM T [facility] BUN/Creatinine Ratio 4.5(L) 7.0 - 25.0 08/20/2024 6:13 AM [facility] Anion Gap 6.5 5.0 - 15.0 mmol/L 08/20/2024 6:13 AM [facility] eGFR 126.6 >60.0 mL/min/1.7 3 08/20/2024 6:13 AM T [facility] Blood Venipuncture / Unknown 08/20/2024 5:25 AM EDT 08/20/2024 5:46 AM T [facility] LABORATORY - 08/20/2024 6:13 AM EDT GFR [...] ORDERABLES Final Resu lt Performing Organization Address [facility]/ZIP Co de Phone Number [facility]
[address] [place] [address], * (ABNORMAL) Potassium (08/19/2024 8:53 PM EDT) Potassium 2.7(L) 3.5 - 5.2 mmol/L 08/19/2024 9:20 PM EDT [facility] Blood Venipuncture / Unknown 08/19/2024 8:53 PM EDT 08/19/2024 9:04 PM EDT Kt Fan DO LAB BLOOD ORDERABLES Final Result Performing Organization Address [facility] Co de Phone Number [facility]OR[facility]
[address] [place] [address], * ABO RH Specimen Verification (08/19/2024 4:34 PM EDT) ABO Type O 08/19/2024 7:39 PM EDT [facility] LABORATORY RH type Positive 08/19/2024 7:39 PM EDT [facility] LAB[facility] Blood Venipuncture / Unknown 08/19/2024 4:34 PM EDT 08/19/2024 4:53 PM EDT Rob Wharton MD BLOOD BANK TEST ORDER FRANCO Final Result Performing Organization Address [facility] Co de Phone Number [facility] LABORATORY
[address] [place] [address], * [facility] (08/19/2024 3:25 PM EDT) Only the most recent of2 resultswithin the time period is included. Anatomical Region Laterality Modality Ultrasound 08/19/2024 3:09 PM EDT Narrative 08/19/2024 4:54 PM EDT PAT NAME: CAROLE GIRARD MED REC#: [id number] DA: 1990 PAT GEND: F PAT TYPE: E EXAM TRAVIS: [id number] REF PHYS ROB WHARTON Comparison Studies The [...] EFW (oz) 9 oz EFW by: Hadlock ([id number]) Extended Cav. septi pel. tr 4.7 mm Tombstone Erector Helper 3.8 mm CM 7.5 mm 84% [...] Heart / Thorax 3-vessel view: Appears normal 8-dcpjxc-xgzfdzs view: Appears normal Stomach: Appears normal Kidneys: [...] in 4wks for growth. Coding ======= Description: 91136-51 Follow Up English Adjunct Faculty: RT Annetta Hartmann , [facility] Physician: Jo Chappell MD Electronically signed by: Jo Chappell MD at: 16:54 Procedure Note Jo Chappell MD - 08/19/2024 PAT NAME: CAROLE GIRARD MED REC#: [id number] DA: [id number] PAT GEND: F PAT TYPE: E EXAM TRAVIS: [id number] REF PHYS ROB WHARTON Comparison Studies The findings of this study are compared to the prior ultrasound studydated 07/22/24 Patient Status Inpatient Indication ======== History of c/s x1. History of . Vaginal bleeding. Maternal Assessment Fjksct820 cm Height (ft)5 ft Height (in)4 in Ekojsn08 kg Weight (lb)158 lb BMI27.31 kg/m Method ======= Transabdominal ultrasound examination. View: Limited by patient bodyhabitus ========= Love . Number of fetuses: 1 Dating ====== Method of dating:based on stated DUSTY GA by prior rklmblkgxe29 w + 1 d DUSTY by prior [...] Hadlock Femur44.9 mm 24w 6d 27% Hadlock Qfahmjn30.3 mm 25w 3d 50% Jamal HC / AC1.16 ONU674 g 24w 2d 16% Hadlock EFW (lb)1 lb EFW (oz)9 oz EFW by:Hadlock ([id number]-FL) Extended Cav. septi pel. tr4.7 mm Vp3.8 mm CM7.5 mm 84% Nicolaides Head / Face / Neck Cephalic index0.71 <1% Nicolaides Extremities / Bony Struc FL / BPD0.78 FL / HC0.20 FL / AC0.23 Other Structures JSB352 bpm General Evaluation Cardiac activity present. FHR [...] normal Heart / Thorax 3-vessel view:Appears normal 1-hykgkt-xvfueym view:Appears normal Stomach:Appears normal Kidneys:Appears normal Bladder:Appears normal Gender:female Wants to know gender:yes Maternal Structures Uterus / Cervix Cervix:Visualized Approach:Transabdominal Cervical gfbfuy31.9 mm Doppler Arterial Umbilical A PI1.01 32% [...] office in 4wks for growth. Coding ======= Description:33629-17 Follow Up English Adjunct Faculty: RT Mary Kate R , [facility] Physician: Jo Chappell MD Electronically signed by: Jo Chappell MD at: 16:54 us Kt Fan DO [facility] US ORDERABLES Final Res ult * Urinalysis, Microscopic Only - Urine, Clean Catch (08/19/2024 3:02 PM EDT) RBC, UA 0-2 None Seen, 0-2 /HPF 08/19/2024 3:33 PM EDT [facility] WBC, UA 0-2 None Seen, 0-2 /HPF 08/19/2024 3:33 PM EDT [facility] Bacteria, UA None Seen None Seen /HPF 08/19/2024 3:33 PM EDT [facility] Squamous Epithelial Cells, UA 0-2 None Seen, 0-2 /HPF 08/19/2024 3:33 PM EDT [facility] Hyaline Casts, UA None Seen None Seen /LPF 08/19/2024 3:33 PM EDT [facility] Methodology Automated Microscopy 08/19/2024 3:33 PM EDT [facility] Urine Urine specimen obtained by clean catch procedure / Unknown Collection / Unknown 08/19/2024 3:02 PM EDT 08/19/2024 3:13 PM EDT Kt Fan DO URINE ORDERABLES Final Resu lt [facility]
[address] [place] [address], * (ABNORMAL) Urinalysis With Microscopic If Indicated (No Culture) - Urine, Clean Catch (08/19/2024 3:02 PM EDT) Color, UA Yellow Yellow, Straw 08/19/2024 3:33 PM EDT [facility] Appearance, UA Clear Clear 08/19/2024 3:33 PM EDT [facility] pH, UA >=9.0(H) 5.0 - 8.0 08/19/2024 3:33 PM EDT [facility] Specific [place], UA 1.018 1.005 - 1.030 08/19/2024 3:33 PM EDT [facility] Glucose, UA Negative Negative 08/19/2024 3:33 PM EDT [facility] Ketones, UA 15 mg/dL (1+)(A) Negative 08/19/2024 3:33 PM EDT [facility] Bilirubin, UA Negative Negative 08/19/2024 3:33 PM EDT [facility] Blood, UA Negative Negative 08/19/2024 3:33 PM EDT [facility] Protein, UA 30 mg/dL (1+)(A) Negative 08/19/2024 3:33 PM EDT [facility] Leuk Esterase, UA Negative Negative 08/19/2024 3:33 PM EDT [facility] Nitrite, UA Negative Negative 08/19/2024 3:33 PM EDT [facility] Urobilinogen, UA 1.0 E.U./dL 0.2 - 1.0 E.U./dL 08/19/2024 3:33 PM EDT [facility] Urine Urine specimen obtained by clean catch procedure / Unknown Collection / Unknown 08/19/2024 3:02 PM EDT 08/19/2024 3:13 PM EDT Kt Fan DO URINE ORDERABLES Final Resu lt [facility]
[address] [place] [address], * (ABNORMAL) CBC Auto Differential (08/19/2024 3:02 PM EDT) WBC 9.19 3.40 - 10.80 10*3/mm3 08/19/2024 3:23 PM EDT [facility] RBC 3.58(L) 3.77 - 5.28 10*6/mm3 08/19/2024 3:23 PM EDT [facility] Hemoglobin 10.5(L) 12.0 - 15.9 g/dL 08/19/2024 3:23 PM EDT [facility] Hematocrit 31.4(L) 34.0 - 46.6 % 08/19/2024 3:23 PM EDT [facility] MCV 87.7 79.0 - 97.0 fL 08/19/2024 3:23 PM EDT [facility] MCH 29.3 26.6 - 33.0 pg 08/19/2024 3:23 PM EDT [facility] MCHC 33.4 31.5 - 35.7 g/dL 08/19/2024 3:23 PM EDT [facility] RDW 13.4 12.3 - 15.4 % 08/19/2024 3:23 PM EDT [facility] RDW-SD 42.4 37.0 - 54.0 fl 08/19/2024 3:23 PM EDT [facility] MPV 12.0 6.0 - 12.0 fL 08/19/2024 3:23 PM EDT [facility] Platelets 241 140 - 450 10*3/mm3 08/19/2024 3:23 PM EDT [facility] Neutrophil % 66.8 42.7 - 76.0 % 08/19/2024 3:23 PM EDT [facility] Lymphocyte % 24.4 19.6 - 45.3 % 08/19/2024 3:23 PM EDT [facility] Monocyte % 7.6 5.0 - 12.0 % 08/19/2024 3:23 PM EDT [facility] Eosinophil % 0.7 0.3 - 6.2 % 08/19/2024 3:23 PM EDT [facility] Basophil % 0.2 0.0 - 1.5 % 08/19/2024 3:23 PM EDT [facility] Immature Grans % 0.3 0.0 - 0.5 % 08/19/2024 3:23 PM EDT [facility] Neutrophils, Absolute 6.14 1.70 - 7.00 10*3/mm3 08/19/2024 3:23 PM EDT [facility] Lymphocytes, Absolute 2.24 0.70 - 3.10 10*3/mm3 08/19/2024 3:23 PM EDT [facility] Monocytes, Absolute 0.70 0.10 - 0.90 10*3/mm3 08/19/2024 3:23 PM EDT [facility] Eosinophils, Absolute 0.06 0.00 - 0.40 10*3/mm3 08/19/2024 3:23 PM EDT [facility] Basophils, Absolute 0.02 0.00 - 0.20 10*3/mm3 08/19/2024 3:23 PM EDT [facility] Immature Grans, Absolute 0.03 0.00 - 0.05 10*3/mm3 08/19/2024 3:23 PM EDT [facility] nRBC 0.0 0.0 - 0.2 /100 WBC 08/19/2024 3:23 PM EDT [facility] Blood Line / Unknown 08/19/2024 3: 02 PM EDT 08/19/2024 3:10 PM EDT Kt Fan DO LAB BLOOD ORDERABLES Final Result Performing Organization Address City/[facility]/ZIP Co de Phone Number [facility]
[address] [place] [address], * Protein / Creatinine Ratio, Urine - [...] Fan DO URINE ORDERABLES Final Resu lt [facility]
[address] [place] [address], * Type & Screen (08/19/2024 3:02 PM EDT) ABO Type O 08/19/2024 3:51 PM EDT [facility] RH type Positive 08/19/2024 3:51 PM EDT [facility] Antibody Screen Negative 08/19/2024 3:51 PM EDT [facility] T&S Expiration Date 08/22/2024 11:59:59 PM 08/19/2024 3:51 PM EDT [facility] Blood Line / Unknown 08/19/2024 3: 02 PM EDT 08/19/2024 3:15 PM EDT Kt Fan BLOOD BANK TEST ORDERABLES Edited Result - Final Performing Organization Address City/[facility]/ZIP Co de Phone Number [facility]
[address] [place] [address], [place] [phone] * (ABNORMAL) Magnesium (08/19/2024 3:02 PM EDT) Magnesium 1.5(L) 1.6 - 2.6 mg/dL 08/19/2024 5:12 PM EDT [facility] Blood Line / Unknown 08/19/2024 3: 02 PM EDT 08/19/2024 3:10 PM EDT Kt Fan LAB BLOOD ORDERABLES Final Result [facility]
[address] [place] [address], [place] [phone] * Lipase (08/19/2024 3:02 PM EDT) Lipase 13 13 - 60 U/L 08/19/2024 3:36 PM EDT [facility] Blood Line / Unknown 08/19/2024 3: 02 PM EDT 08/19/2024 3:10 PM EDT Kt Fan DO LAB BLOOD ORDERABLES Final Result [facility]
[address] [place] [address], * Amylase (08/19/2024 3:02 PM EDT) Amylase 73 28 - 100 U/L 08/19/2024 3:36 PM EDT [facility] Blood Line / Unknown 08/19/2024 3: 02 PM EDT 08/19/2024 3:10 PM EDT Kt Fan DO LAB BLOOD ORDERABLES Final Result Performing Organization Address City/[facility]/ZIP Co de Phone Number [facility]
[address] [place] [address], * Hepatitis C Antibody (04/12/2024) Hep C Virus Ab negative Blood Historical Provider LAB BLOOD ORDERABLES Lena l Result from Last 3 Months or Most Recently Relevant to Health Maintenance Insurance [facility] Care Teams Electronic Repair Troubleshooter Relationship Specialty Start Date End Date Norma Friedman APRN [address] [place] G3 RAFAELA APPIAH [address] PCP - General Family Medicine 05/14/24
--- OUTSIDE RECORDS SUMMARY | 2024-10-08 02:23 | XMS_ITS | Encounter Summary ---
[facility] Address [address] [place] [id number] Care Team Providers Care Supervisor Of Operations Name Role Phone IvyKade goldbergjoseseven JOLENE Primary Care Provider + [phone] Encounter Details Date Type Department Care Team (Late st Contact Info) Description 09/26/2024 Documentation [facility] [address] [place] [phone] Christy Zabala, RN Social History Tobacco Use Types Packs/Day Years Used Date Smoking Tobacco: Never Smokeless Tobacco: Never Alcohol Use Standard Drinks/Week Comments Never 0 (1 standard drink = 0.6 oz pur e alcohol) [facility] Utilities Answer Date Recorded In [...] all 05/28/2024 [facility] [place] of Occupat ional Health - Occupational Stress [...] GED or equivalent No 05/28/2024 Preferred Language Botswanan 05/28/2024 PHQ-2 Answer Date Recorded Patient Health [...] Review of chart reveals patient ZAIN to [facility] to continue care. Will plan to review chart around EDC for delivery information. documented in this encounter Plan of Treatment Upcoming Encounters Date Type Department Care Team (Late st Contact Info) Description 01/20/2025 3:30 PM EST Office Visit [facility] [address] [phone] Robbin Escalante MD [address] [address] documented as of this encounter Visit Diagnoses Not on filedocumented in this encounter Additional Health Concerns Assessment Noted Time PHQ-2 Depression Total Score: 2 05/28/19 25 4:39 PM EDT documented as of this encounter Care Teams Supervisor Of Operations Relationship Specialty Start Date End Date Norma Friedman APRN [address] [place]FA[place]A APPIAH [address] PCP - General Family Medicine 05/14/24 documented as of this encounter
--- OUTSIDE RECORDS SUMMARY | 2024-10-08 02:23 | XMS_ITS | Encounter Summary ---
Author Organization Healthcare Address [address] [place] [address] Care Team Providers Care Regional Wildlife Agent Name Role Phone Norma Friedman APRN Primary Care Provider +1- [phone] Encounter Details Date Type Department Care Team [...] drinks on one occasion? Never 09/23/2024 [place] Depression Scale Answer Date Recorded [place] Depression Scale Total 0 09/23/2024 The thought [...] 10/24/2024 8:00 AM EDT Office Visit [facility] [place] [address] [facility], [address] [place] [phone] Nneka Block MD [address] [place] [address] 12/25/2024 1:00 PM EST Office Visit [facility] Nephrology, Bone & Mineral Metabolism [address] [facility], [address] [place] [address] documented as of this encounter Visit Diagnoses Not on filedocumented in this encounter Additional Health Concerns Assessment Noted Time A fall risk assessment has been complete d for the patient 09/25/2024 3:05 PM EDT A Body Mass Index follow-up plan has been documented for the patient 10/05/2024 8:54 PM EDT documented as of this encounter Care Teams Regional Wildlife Agent Relationship Specialty Start Date End Date Norma Friedman APRN [address] [place] [address] PCP - General 09/23/24 documented as of this encounter
--- OUTSIDE RECORDS SUMMARY | 2024-10-08 02:23 | XMS_ITS | Clinical Summary ---
Author Organization Healthcare Address [address] [place] [address] Care Team Providers Care Supervisor Incising Name Role Phone Norma Friedman JOLENE Primary Care Provider +1- [phone] Lizz Trinh RN Unavailable Unavailable Allergies Active [...] dermatitis with skin contact Medications Prenat MV-Min w/Cp-Ppxejl-FBM ( COMPLETE PO) 019 Active potassium chloride [...] chew. 60 tablet 1 025 2024 Discontinued [id number] A ( 1 + IRON PO) 2024 [...] [facility] [address] [place] [address] Palpitations; Syncope and collapse Discharge Disposition: Home or Self Care 09/26/2024 8:00 AM EDT Office Visit [facility] [place] [address] [facility], [address] [place] [address] Nneka Block MD Syncope and collapse (Primary Dx); Atrial fibrillation, unspecified type (CMS/HCC); Palpitations 09/26/2024 Travel 09/25/2024 2:20 PM EDT Office Visit [facility] Nephrology, Bone & Mineral Metabolism [address] [facility], [address] [place] [address] Bill Patrick MD Hypokalemia (Primary Dx) 09/25/2024 Travel 09/23/2024 10:00 AM EDT Office Visit [facility] Obstetrics [facility] Gynecology [address] [facility], [address] [place] [address] Liborio Weller MD Supervision of high risk , antepartum (Primary Dx); Cardiac arrhythmia, unspecified cardiac arrhythmia type 09/23/2024 Travel 09/17/2024 Telephone [facility] Nephrology, Bone & Mineral Metabolism [address] [facility], [address] [place] [address] Sherley Gold CNA 09/17/2024 Telephone [facility] Obstetrics and Gynecology [address] [facility], [address] [place] [address] Josefina Shay RN 09/14/2024 Telephone [facility] Obstetrics & Gynecology [address] [place] [address] Susi Wren MD 07/22/2024 [facility] [address] [place] [address] Staci Jain MD History of proteinuria syndrome (Primary Dx); care, subsequent , second trimester 07/22/2024 [facility] [address] [place] [address] Sandy Cardenas MD from Last 3 Months [...] more drinks on one occasion? Never 09/23/2024 [place] Depression Scale Answer Date Recorded [place] Depression Scale Total 0 09/23/2024 The thought [...] Description 10/24/2024 8:00 AM EDT Office Visit [facility] [place] [address] [facility], [address] [place] [address] Nneka Block MD [address] [place] [address] 12/25/2024 1:00 PM EST Office Visit [facility] Nephrology, Bone & Mineral Metabolism [address] [facility], [address] [place] [address] Health Maintenance Due Date Last Done Comments [facility]-Infant/Child/Adol SDOH Screenings 1991 [facility]-Varicella Vaccines (1 of 2 - 13+ 2-dose series) 2004 [facility]- SDOH Screenings 2009 [facility]-Adult SDOH Screenings 2009 [facility]-Hepatitis B Vaccines (1 of 3 - 19+ 3-dose series) 2010 [facility]-Pap Smear 2012 [facility]-Cervical Cancer Screening 2021 [facility]-HPV/Cotest 2021 [facility]-LFBIB-16 Vaccine (2 - season) 2023 05/04/2022 [facility]-Influenza [...] Chloride, Urine 25 mmol/L 2:03 PM EDT [facility] Urine Urine specimen obtained by clean catch procedure / Unknown Non-blood Collection / Unknown 09/26/2024 10:07 AM EDT 09/26/2024 10:07 AM EDT us Bill Patrick MD LAB URINE ORDERABLES Final Resul t Performing Organization Address City/[facility]/ZIP Co de Phone Number [facility] [address] [place] [address] * Protein, Random, Urine with Creatinine (09/26/2024 10:03 AM EDT) Protein, Urine 26 mg/dL 09/26/2024 12:08 PM EDT [facility] Creatinine, Urine 199 mg/dL 09/26/2024 12:08 PM EDT [facility] Protein/Creati nine Ratio 0.1 mg/mg Creat 09/26/2024 12:08 PM EDT [facility] Urine Urine specimen obtained by clean catch procedure / Unknown Non-blood Collection / Unknown 09/26/2024 10:03 AM EDT 09/26/2024 10:04 AM EDT us Bill Patrick MD LAB URINE ORDERABLES Final Resul t Performing Organization Address [facility] Co de Phone Number [facility] [address] [place] [address] * Sodium, urine, random (09/26/2024 10:02 AM EDT) Sodium, Urine 110 mmol/L 09/26/2024 11:55 AM EDT [facility] Urine Urine specimen obtained by clean catch procedure / Unknown Non-blood Collection / Unknown 09/26/2024 10:02 AM EDT 09/26/2024 10:02 AM EDT Result Jaden Patrick MD LAB URINE ORDERABLES Final Resul t Performing Organization Address City/[facility]/ZIP Co de Phone Number [facility] [address] [place] [address] * Potassium, urine, random (09/26/2024 10:02 AM EDT) Potassium, Urine 43 mmol/L 09/26/2024 11:55 AM EDT [facility] Urine Urine specimen obtained by clean catch procedure / Unknown Non-blood Collection / Unknown 09/26/2024 10:02 AM EDT 09/26/2024 10:02 AM EDT us Bill Patrick MD LAB URINE ORDERABLES Final Resul t Performing Organization Address City/[facility]/ZIP Co de Phone Number [facility] [address] [place] [address] * Osmolality, urine (09/26/2024 10:02 AM EDT) Osmolality, Urine 404 50 - 1,200 mOsm/kg 09/26/2024 1:48 PM EDT [facility] Urine Urine specimen obtained by clean catch procedure / Unknown Non-blood Collection / Unknown 09/26/2024 10:02 AM EDT 09/26/2024 10:02 AM EDT us Bill Patrick MD LAB URINE ORDERABLES Final Resul t Performing Organization Address City/[facility] [place] [address] * SSA 52 and 60 (Ro) (YARA) Antibodies, IgG (09/26/2024 9:32 AM EDT) SSA-52 (RO52) (YARA) Antibody, IgG 2 0 - 40 AU/mL 09/28/2024 5:47 PM EDT [facility] ([facility]) SSA-60 (RO60) (YARA) Antibody, IgG 0 0 - 40 AU/mL 09/28/2024 5:47 PM EDT [facility] ([facility]) Serum 09/26/2024 9:32 AM EDT 09/26/2024 9:32 AM EDT Narrative [facility] ([facility]) - 09/28/2024 5:47 PM EDT INTERPRETIVE INFORMATION: [...] AU/mL or Greater .......... Positive Performed By: [facility] [address] [place], [place] [id number] Asset Accountant: Brandon Bell MD, PhD CLIA Number: [id number] Bill Patrick MD LAB REF LAB BLOOD AND FLUID ORD Final Result [facility]) [address] [place], [place] [id number] * SSB (LA) (YARA) ANTIBODY, IGG (09/26/2024 9:32 AM EDT) SSB (LA) (YARA) Antibody, IgG 0 0 - 40 AU/mL 09/28/2024 5:47 PM EDT [facility]) Serum Venous blood specimen / Unknown 09/26/2024 9:32 AM EDT 09/26/2024 9:32 AM EDT Narrative [facility]) - 09/28/2024 5:47 PM EDT INTERPRETIVE INFORMATION: [...] (PSS) also have this antibody. Performed By: [facility] [address] [place] [id number] Asset Accountant: Brandon Bell MD, PhD CLIA Number: [id number] Bill Patrick MD LAB BLOOD ORDERABLES Final Resul t Performing Organization Address City/[facility]/ZIP Co de Phone Number [facility]) [address] [place] [address] * Rheumatoid factor, plasma (09/26/2024 9:32 AM EDT) Rheumatoid Factor, Plasma <10 <14 IU/mL 09/26/2024 1:49 PM EDT [facility] Blood Venous blood specimen / Unknown Venipuncture / Unknown 09/26/2024 9:32 AM EDT 09/26/2024 9:32 AM EDT Bill Patrick MD LAB BLOOD ORDERABLES Final Resul t [facility] [address] [place] [address] * Antinuclear Antibody (JEFFERY), HEp-2, IgG (09/26/2024 9:32 AM EDT) JEFFERY INTERPRETIVE COMMENT See Note 09/28/2024 5:13 PM EDT [email or web address] ([place]) Anti Nuc Ab Screen <1:80 <1:80 09/28/2024 5:13 PM EDT [email or web address] ([facility]) Blood Venous blood specimen / Unknown Venipuncture / Unknown 09/26/2024 9:32 AM EDT 09/26/2024 9:32 AM EDT Narrative [email or web address] [employer] [facility]) - 09/28/2024 5:13 PM EDT INTERPRETIVE INFORMATION: [...] rings, and cytoplasmic speckled patterns. Performed By: [facility] [address] [place] [address] Asset Accountant: Brandon Bell MD, PhD CLIA Number: [id number] us Bill Patrick MD LAB BLOOD ORDERABLES Final Resul t Performing Organization Address City/[facility]/ZIP Co de Phone Number [email or web address] ([facility]) [address] [place] [address] * (ABNORMAL) Osmolality (09/26/2024 9:32 AM EDT) Osmolality, Serum 273(L) 275 - 295 mOsm/Kg 09/26/2024 2:10 PM EDT [facility] Blood Venous blood specimen / Unknown Venipuncture / Unknown 09/26/2024 9:32 AM EDT 09/26/2024 9:32 AM EDT us Bill Patrick MD LAB BLOOD ORDERABLES Final Resul t [facility] [address] [place] [address] * (ABNORMAL) Renal function panel (09/26/2024 9:32 AM EDT) Pathologist [facility] Glucose, Plasma 87 74 - 99 mg/dL 09/26/2024 12:24 PM EDT [facility] BUN, Plasma 5(L) 7 - 21 mg/dL 09/26/2024 12:24 PM EDT [facility] Creatinine, Plasma 0.72 0.60 - 1.10 mg/dL 09/26/2024 12:24 PM EDT [facility] BUN/Creatinine Ratio 7 09/26/2024 12:24 PM EDT [facility] Sodium, Plasma 135(L) 136 - 145 mmol/L 09/26/2024 12:24 PM EDT [facility] Potassium, Plasma 3.1(L) 3.6 - 4.9 mmol/L 09/26/2024 12:24 PM EDT [facility] Chloride, Plasma 95(L) 97 - 107 mmol/L 09/26/2024 12:24 PM EDT [facility] CO2, Plasma 26 22 - 29 mmol/L 09/26/2024 12:24 PM EDT [facility] Anion Gap 14 6 - 16 mmol/L 09/26/2024 12:24 PM EDT [facility] Total Calcium, Plasma 9.4 8.9 - 10.2 mg/dL 09/26/2024 12:24 PM EDT [facility] Phosphorus, Plasma 3.5 2.5 - 4.5 mg/dL 09/26/2024 12:24 PM EDT [facility] Albumin, Plasma 3.6 3.5 - 5.2 g/dL 09/26/2024 12:24 PM EDT [facility] eGFRcr 113.4 mL/min/1.7 3m*2 09/26/2024 12:24 PM EDT [facility] Comment:Reported eGFRcr in m L/min/1.73m2 is based the CKD-EPI 2020 equation that does not use a race coefficient. Blood Venous blood specimen / Unknown Venipuncture / Unknown 09/26/2024 9:32 AM EDT 09/26/2024 9:32 AM EDT Bill Patrick MD LAB BLOOD ORDERABLES Final Resul t Performing Organization Address [facility] de Phone Number [facility] [address] [place] [address] * ECG Adult (Now - Performed in your clinic) (09/26/2024 8:21 AM EDT) EKG DIAGNOSIS CLASS Normal MUSE ECG Ventricular Rate 84 BPM MUSE ECG Atrial Rate [address] Interval 148 ms MUSE ECG QRSD Interval 74 ms MUSE ECG QT Interval 374 ms MUSE ECG QTC Interval 441 ms MUSE ECG P [place] 60 degrees MUSE ECG R [place] 36 degrees MUSE ECG T Wave [place] 55 degrees MUSE ECG Diagnosis Normal sinus rhythm with sinus arrhythmia MUSE ECG Diagnosis Normal ECG MUSE ECG Diagnosis MUSE ECG Diagnosis Confirmed by Abad South ([id number]) on 09/26/2024 12:13:59 PM MUSE ECG 09/26/2024 8:21 AM EDT 09/26/2024 12:13 PM EDT us Nneka Block MD ECG ORDERABLES Final Resu lt Performing Organization Address [facility] de Phone Number MUSE ECG * (ABNORMAL) POCT Urinalysis Dipstick (09/23/2024 10:54 AM EDT) POCT Urine Color Yellow POCT Urine Clarity Clear POCT Glucose Urine Negative Negative mg/dL POCT Bilirubin, Urine Small(A) Negative POCT Ketones, Urine 40(A) Negative mg/dL POCT Specific [place], Urine 1.015 POCT Blood, Urine Negative Negative POCT pH, Urine >=9.0(A) 5.0 to 8.0 POCT Protein, Urine 100(A) Negative mg/dL POCT Urobilinogen, Urine 0.2 0.2, 1 E.U./dL POCT Nitrite, Urine Negative Negative POCT Leukocyte Esterase, Urine Negative Negative Test Strip Lot Number [id number] Test Strip Lot Expiration 07/2025 Urine Urine [...] ORDERABLES Fin al Result Performing Organization Address [facility] de Phone Number [facility]QUEST * Hepatitis C Antibody (01/22/2019 9:57 AM EST) Hepatitis C Antibody NEGATIVE Reference Range: Negative [facility]QUEST 01/22/2019 9:57 AM EST 01/22/2019 12:12 PM EST Pradip Damico APRN, TERRY LAB BLOOD ORDERABLES Fin al Result Performing Organization Address [facility] de Phone Number SUNQUEST from Last 3 Months or Most Recently Relevant to Health Maintenance Insurance [employer] [facility] MEDICAID Care Teams Supervisor Incising Relationship Specialty Start Date End Date Norma Friedman APRN [address] [place] [address] PCP - General 09/23/24 Lizz Trinh, RN [facility] Registered Nurse Cardiology 09/26/24
--- OUTSIDE RECORDS SUMMARY | 2024-10-08 02:23 | XMS_ITS | Encounter Summary ---
Author Organization [facility] Address [address] [place] [id number] Care Team Providers Care Data Typist Name Role Phone Unavailable Primary Care Provider Unavailabl e Encounter Details Date Type Department Care Team (Late st Contact Info) Description 09/17/2024 Telephone Medical Office Building Obstetrics and Gynecology [address] [facility], [address] [place] [address] Josefina Shay RN [facility] [address] [place] [address] Social History Tobacco Use Types Packs/Day Years [...] recently had a full Nephrology work-up at [facility] that was negative and was not [...] Description 10/24/2024 8:00 AM EDT Office Visit [facility] [place] [address] [facility], [address] [place] [address] Nneka Block MD [address] [place] [address] 12/25/2024 1:00 PM EST Office Visit [facility] Nephrology, Bone & Mineral Metabolism [address] [facility], [address] [place] [address] documented as of this encounter Visit Diagnoses Not on filedocumented in this encounter
--- OUTSIDE RECORDS SUMMARY | 2024-10-08 02:23 | XMS_ITS | Clinical Summary ---
Author Organization [employer] ([place], [place], [place], [place]) Address [address] [place] [address] Care Team Providers Care Business Performance Manager Name Role Phone Unavailable Primary Care [...]
--- OUTSIDE RECORDS SUMMARY | 2024-10-08 02:24 | XMS_ITS | Encounter Summary ---
Author Organization Healthcare Address [address] [place] [address] Care Team Providers Care Portrait Studio Photographer Name Role Phone Norma Friedman APRN Primary Care Provider +1- [phone] Encounter Details Date Type Department Care Team [...] more drinks on one occasion? Never 09/23/2024 [place] Depression Scale Answer Date Recorded [place] Depression Scale Total 0 09/23/2024 The [...] Description 10/24/2024 8:00 AM EDT Office Visit [facility] [place] [address] [facility], [address] [place] [address] Nneka Block MD [address] [place] [address] 12/25/2024 1:00 PM EST Office Visit [facility] Nephrology, Bone & Mineral Metabolism [address] [facility], [address] [place] [address] documented as of this encounter Visit Diagnoses Not on filedocumented in this encounter Additional Health Concerns Assessment Noted Time A Body Mass Index follow-up plan has been documented for the patient 09/23/2024 8:28 PM EDT documented as of this encounter Care Teams Portrait Studio Photographer Relationship Specialty Start Date End Date Norma Friedman APRN [address] [place] [address] PCP - General 09/23/24 documented as of this encounter
--- OUTSIDE RECORDS SUMMARY | 2024-10-08 02:24 | XMS_ITS | Encounter Summary ---
Author Organization Healthcare Address [address] [place] [address] Care Team Providers Care Shopper Insights Manager Name Role Phone Unavailable Primary Care Provider Unavailabl e Reason for Referral * Consultation (Routine) - Closed Specialty Diagnoses / Procedures Referred By Contac t Referred To Contact Nephrology Diagnoses Hypokalemia Liborio Weller MD [address] [facility] [address] [place] [address] Phone: tel: fax: [facility] Nephrology, Bone & Mineral Metabolism [address] [facility], [address] [place] [address] Phone: tel: fax: Referral ID Status Reason Start Date Expiration Date V isits Requested Visits Authorized [id number] Closed Specialty Services Required 09/14/2024 03/16/2026 1 1 Scheduling Instructions Severe hypokalemia in the setting of Encounter Details Date Type Department Care Team (Late st Contact Info) Description 09/14/2024 Telephone [facility] Obstetrics & Gynecology [address] [place] [address] Susi Wren MD [address] [place] [address] Social History Tobacco Use Types [...] Description 10/24/2024 8:00 AM EDT Office Visit [facility] [place] [address] [facility], [address] [place] [address] Nneka Block MD [address] [place] [address] 12/25/2024 1:00 PM EST Office Visit [facility] Nephrology, Bone & Mineral Metabolism [address] [facility], [address] [place] [address] Scheduled Referrals Name Type Priority Associated Diagnoses Order Schedule Ambulatory referral to Nephrology Clinic Outpatient Referral Routine Hypokalemia 1 Occurrences starting 09/14/2024 until 03/18/2026 documented as of this encounter Visit Diagnoses Diagnosis Hypokalemia- Primary Hypopotassemia documented in this encounter
--- OUTSIDE RECORDS SUMMARY | 2024-10-08 02:24 | XMS_ITS | Encounter Summary ---
Author Organization Healthcare Address [address] [place] [address] Care Team Providers Care Glass Processing Worker Name Role Phone Unavailable Primary Care Provider Unavailabl e Encounter Details Date Type Department Care Team (Late Contact Info) Description 09/17/2024 Telephone [facility] Nephrology, Bone & Mineral Metabolism [address] [facility], [address] [place] [address] Sherley Gold, DIRECTOR OF CONSERVATION GS - 7 MAIN MEDICAL-SURGICAL Social History [...] Description 10/24/2024 8:00 AM EDT Office Visit [facility] [place] [address] [facility], [address] [place] [address] Nneka Block MD [address] [place] [address] 12/25/2024 1:00 PM EST Office Visit [facility] [place] Nephrology, Bone & Mineral Metabolism [address] [facility], [address] [place] [address] documented as of this encounter Visit Diagnoses Not on filedocumented in this encounter
[2024-10-08 02:29] VITALS: BMI 26.6
[2024-10-08 02:40] LABS: Microscopic, Urine URINE MICROSCOPIC (MICROSCOPIC)
[2024-10-08 02:45] LABS: Bilirubin,Urine Negative (Negative); Color,Urine YELLOW (Yellow); Glucose,Urine (UA) Negative (Negative); Ketones,Urine 1+ (Negative); Leukocyte Esterase,Urine Negative (Negative); PH,Urine 8.5 (5.0-8.5); Protein,Urine Negative (Negative); Specific Gravity, Urine 1.010 (1.005-1.030); Urobilinogen,Urine 0.2 EU/dl (0.2)
[2024-10-08 02:54] VITALS: BP 112/74; PULSE 113; RESP 18; TEMP 36.5; O2SAT 97; BMI 26.6
[2024-10-08 02:59] LABS: Bacteria,Urine 1+ /lpf; RBC,Urine Occasional #/hpf (0-3)
[2024-10-08] MEDS: LACTATED RINGERS 1000ML 1,000 ML 999 ML IV ×2 (03:19→16:02)
[2024-10-08 03:39] LABS: Albumin Level 3.6 g/dl (3.5-5.0); Chloride 93 mmol/L (98-107); Sodium 130 mmol/L (136-145)
[2024-10-08 03:42] LABS: Alanine Aminotransferase 54 U/L (12-78); Albumin/Globulin Ratio 1.1 (1.1-1.8); Alkaline Phosphatase 91 U/L (38-126); Anion Gap 10.6 mEq/L (5-15); Aspartate Amino Transferase 57 U/L (14-36); Bilirubin,Total 0.7 mg/dl (0.2-1.3); Blood Urea Nitrogen 5 mg/dl (7-17); Carbon Dioxide 29 mmol/L (22.0-30.0); Creatinine Clearance Estimated 148 mL/min (50-200); Creatinine,Serum 0.60 mg/dl (0.52-1.04); Estimated Glomerular Filt Rate 115 ml/min (>60); GFR (African American) 139 ML/MIN (>60); Globulin 3.2 g/dL (1.3-3.2); Total Protein,Serum 6.8 g/dl (6.3-8.2)
[2024-10-08 03:43] LABS: Calcium 9.4 mg/dl (8.4-10.2); Glucose 80 mg/dl (74-100)
[2024-10-08 04:01] LABS: Magnesium 1.0 mg/dl (1.6-2.3); Potassium 2.6 mmoL/L (3.5-5.1)
[2024-10-08] MEDS: MAGNESIUM SULFATE IN WATER 2 GM/50 ML PIGGYBACK IV ×3 (05:26→07:37)
[2024-10-08 08:46] VITALS: BP 89/52; PULSE 82; RESP 14; TEMP 36.6; O2SAT 99
[2024-10-08] MEDS: POTASSIUM CHLORIDE 20MEQ TAB 40 MEQ PO ×2 (09:53→13:53)
[2024-10-08] MEDS: CALCIUM CARBONATE 500MG CHEWTAB 500 MG PO (13:17)
[2024-10-08 15:59] VITALS: BP 105/66; PULSE 86; RESP 16; TEMP 36.7; O2SAT 100
[2024-10-08 15:59] LABS: Hematocrit 26.6 % (37.0-47.0); Hemoglobin 8.7 g/dL (12.2-16.2); Immature Granulocytes % 0.3 %; Mean Corpuscular HGB Conc 32.7 g/dL (31.8-35.4); Mean Corpuscular Hemoglobin 29.3 pg (27.0-31.2); Mean Corpuscular Volume 89.6 fl (81-99); Nucleated Red Blood Cells % 0 %; Platelet Count 181 K/mm3 (142-424); Red Blood Count 2.97 M/mm3 (4.20-5.40); Red Cell Distribution Width-SD 48.0 fL; White Blood Count 7.8 K/mm3 (4.8-10.8)
[2024-10-08 16:12] LABS: Potassium 3.6 mmoL/L (3.5-5.1)
[2024-10-08 16:15] LABS: Magnesium 1.8 mg/dl (1.6-2.3)
--- NOTE | 2024-10-08 16:58 | EXP.HPDC ---
General Admission date:: 10/08/24 Discharge date: 10/08/24 *Admission Date: 10/08/24 *Chief complaint: Contractions *History of present illness: Ms Whitney Presley is a 34 yo at 32w2d who presented to [facility] with complaint of painful contractions. She admits she did have intercourse prior to contractions starting. She received IV fluids and contractions stopped. While in triage labs were drawn and potassium was noted to be 2.6 and magnesium was 1.0. She received 8 bags of potassium on Monday. She states she has also been taking Klor-Con 40 mEq QID. She was kept for potassiun infusion per protocol as well as Klor-Con 40 mEq q 4 hours. Baby is active. No leakage of fluid or vaginal bleeding. [facility] Disclaimer: The information contained in this section may have been updated after the patient was seen, as this information can be updated by other users. Medical History Generalized abdominal pain Vaginal bleeding in Nausea vomiting and diarrhea Normal esophagogastroduodenoscopy (EGD) Vaginal discharge UTI (urinary tract infection) UTI (urinary tract infection) Subchorionic hematoma Patient left without being seen Vaginal spotting Bilateral ovarian cysts Vulvar lesion Lower abdominal pain Traumatic iritis Corneal abrasion Subconjunctival hemorrhage Bright red blood per rectum Hematemesis Obstipation Irregular bowel habits Dyspepsia Early satiety Bloating Back pain Abdominal pain Low back ache Acute viral syndrome Gastroenteritis Dehydration Hypocalcemia Missed GERD (gastroesophageal reflux disease) Grand multipara History of recurrent miscarriages History of miscarriage, currently History of anemia Urinary tract infection History of gastroesophageal reflux (GERD) Endometriosis Dysmenorrhea Menorrhagia History of miscarriage History of fainting History of heavy periods Surgical History History of tympanostomy tube placement History of section Hx of section Family History Other Family history of diabetes mellitus type II Family history of myocardial infarction Social History Smoking Status: Never smoker alcohol intake: never substance use type: denies use current occupational status: unemployed Travel in the last 8 weeks?: None household members: spouse housing: house current occupation: [employer] Other Medical History Have you received the Flu Vaccine for this season: No Have you received the Pneumonia Vaccine: No Review of Systems Review of Systems Review of systems:: pertinent systems reviewed and negative unless documented below Exam Data for Last 24 hours Vital signs and Labs for Last 24 Hours: Temp Pulse Resp BP Pulse Ox O2 Del Method 98.1 F 86 16 105/66 L 100 Room Air 10/08/24 15:59 10/08/24 15:59 10/08/24 15:59 10/08/24 15:59 10/08/24 15:59 10/08/24 15:59 Laboratory Results - last 24 hr 10/08/24 02:25: Urine Color Yellow, Urine Appearance Clear, Urine pH 8.5, Ur Specific Wickett 1.010, Urine Protein Negative, Urine Glucose (UA) Negative, Urine Ketones 1+, Urine Blood Negative, Urine Nitrate Negative, Urine Bilirubin Negative, Urine Urobilinogen 0.2, Ur Leukocyte Esterase Negative, Urine RBC Occasional, Urine WBC 3-5, Ur Squamous Epith Cells 10-20, Urine Bacteria 1+ 10/08/24 03:18: Sodium 130 L, Potassium 2.6 L* D, Chloride 93 L, Carbon Dioxide 29, Anion Gap 10.6, BUN 5 L D, Creatinine 0.60, Estimated Creat Clear 148, Estimated GFR 115, Est GFR ( Amer) 139, Glucose 80, Calcium 9.4, Magnesium 1.0 L, Total Bilirubin 0.7, AST 57 H, ALT 54, Alkaline Phosphatase 91, Total Protein 6.8, Albumin 3.6, Globulin 3.2, Albumin/Globulin Ratio 1.1 10/08/24 15:50: WBC 7.8, RBC 2.97 L, Hgb 8.7 L, Hct 26.6 L, MCV 89.6, MCH 29.3, MCHC 32.7, RDW 14.9, Plt Count 181, MPV 12.5 H, Neut % (Auto) 61.8, Lymph % (Auto) 26.9, Dodge % (Auto) 10.2 H, Eos % (Auto) 0.5, Baso % (Auto) 0.3, Neut # (Auto) 4.8, Lymph # (Auto) 2.1, Dodge # (Auto) 0.8, Eos # (Auto) 0.0, Baso # (Auto) 0.0, Potassium 3.6 D, Magnesium 1.8 D I & O for Last 24 hours: Intake & Output 10/05/24 10/06/24 10/07/24 10/08/24 23:59 23:59 23:59 23:59 Intake Total 1936.500 / 1936.500 Balance 1936.500 / 1936.500 Weight 155 lb Constitutional Constitutional: no acute distress and cooperative *Routine HEENT Exam Head: Present normocephalic and atraumatic Eye: Absent conjunctivae pink ENT: Present mucous membranes moist *Routine Neck Exam Neck: Present full ROM *Routine Respiratory Exam Respiratory: Present CTA bilaterally and normal respiratory effort *Routine Cardiovascular Exam Cardiovascular: Present RRR *Routine Abdominal Exam Abdominal: Present soft (Gravid) *Routine Rectal Exam Rectal:: deferred *Routine Genitalia Exam Genitalia:: deferred *Routine Extremities Exam Extremities: Present full ROM; Absent edema or calf tenderness *Routine Neurological Exam Neurological: Present alert, moving all extremities and normal speech Routine Psychiatric Exam Psychiatric: Present normal affect and cooperative Meds Home Medications and Allergies Home Medications ?Medication ?Instructions ?Recorded ?Confirmed ?Type omeprazole 20 mg capsule,delayed 20 mg PO DAILY 09/02/24 09/30/24 History release vit no.95-ferrous 1 tab PO DAILY 09/02/24 09/30/24 History fumarate 28 mg-folic acid 800 mcg tablet () thiamine HCl (vitamin B1) 100 mg 100 mg PO DAILY 09/02/24 09/30/24 History tablet ferrous sulfate 325 mg (65 mg 325 mg PO DAILY #30 tabs 09/12/24 09/30/24 Rx iron) tablet (Iron (ferrous sulfate)) metoprolol succinate 25 mg 12.5 mg PO DAILY 09/25/24 09/30/24 History tablet,extended release 24 hr promethazine 12.5 mg tablet 12.5 mg PO TID PRN Nausea And 09/30/24 09/30/24 History Vomiting magnesium glycinate 100 mg (as 400 mg (4 x 100 mg) PO BID #240 10/08/24 09/30/24 Rx glycinate) tablet tabs potassium chloride 10 mEq 40 meq (4 x 10 mEq) PO Q4H #360 10/08/24 09/30/24 Rx tablet,extended release(part/cryst) tabs New Prescriptions to Start Prescriptions: Allergies Allergy/AdvReac Type Severity Reaction Status Date / Time peanut Allergy Severe Hives Verified 09/26/24 12:00 Hospital Course Hospital Course Hospital Course: Ms Whitney Presley is a 34 yo at 32w2d who presented to [facility] with complaint of painful contractions. She admits she did have intercourse prior to contractions starting. She received IV fluids and contractions stopped. While in triage labs were drawn and potassium was noted to be 2.6 and magnesium was 1.0. She received 8 bags of potassium on Monday. She states she has also been taking Klor-Con 40 mEq QID. She was kept for potassium and magnesium infusion per protocol as well as Klor-Con 40 mEq q 4 hours. Baby is active. No leakage of fluid or vaginal bleeding. Repeat potassium after infusion and PO was 3.6 and repeat mag after replacement was 1.8. She was discharged home with instructions to follow-up for repeat labs and infusion on . We will call her tomorrow to set this up. Plan for growth ultrasound next week as well as ob office visit Monday or Monday next week. NST reactive, category 1. Results Data Completed and Pending Labs on day of discharge: Labs from last 24 hours 10/08/24 10/08/24 10/08/24 15:50 03:18 02:25 WBC 7.8 RBC 2.97 L Hgb 8.7 L Hct 26.6 L MCV 89.6 MCH 29.3 MCHC 32.7 RDW 14.9 Plt Count 181 MPV 12.5 H Neut % (Auto) 61.8 Lymph % (Auto) 26.9 Dodge % (Auto) 10.2 H Eos % (Auto) 0.5 Baso % (Auto) 0.3 Neut # (Auto) 4.8 Lymph # (Auto) 2.1 Dodge # (Auto) 0.8 Eos # (Auto) 0.0 Baso # (Auto) 0.0 Sodium 130 L Potassium 3.6 D 2.6 L* D Chloride 93 L Carbon Dioxide 29 Anion Gap 10.6 BUN 5 L D Creatinine 0.60 Estimated Creat Clear 148 Estimated GFR 115 Est GFR ( Amer) 139 Glucose 80 Calcium 9.4 Magnesium 1.8 D 1.0 L Total Bilirubin 0.7 AST 57 H ALT 54 Alkaline Phosphatase 91 Total Protein 6.8 Albumin 3.6 Globulin 3.2 Albumin/Globulin Ratio 1.1 Urine Color Yellow Urine Appearance Clear Urine pH 8.5 Ur Specific Wickett 1.010 Urine Protein Negative Urine Glucose (UA) Negative Urine Ketones 1+ Urine Blood Negative Urine Nitrate Negative Urine Bilirubin Negative Urine Urobilinogen 0.2 Ur Leukocyte Esterase Negative Urine RBC Occasional Urine WBC 3-5 Ur Squamous Epith Cells 10-20 Urine Bacteria 1+ DS: Diagnosis Discharge Diagnosis (1) Hypokalemia: Status: Acute Code(s): E87.6 - Hypokalemia (2) Hypomagnesemia: Status: Acute Code(s): E83.42 - Hypomagnesemia (3) Sinus tachycardia: Status: Acute Code(s): R00.0 - Tachycardia, unspecified (4) Acute stress reaction: Status: Acute Code(s): F43.0 - Acute stress reaction (5) Secondary aldosteronism: Status: Acute Code(s): E26.1 - Secondary hyperaldosteronism (6) Elevated liver enzymes: Status: Acute Code(s): R74.8 - Abnormal levels of other serum enzymes (7) Chronic constipation: Status: Acute Code(s): K59.09 - Other constipation (8) IUGR (intrauterine growth restriction) in prior , : Status: Acute Code(s): O09.299 - Supervision of with other poor reproductive or obstetric history, unspecified trimester (9) GERD (gastroesophageal reflux disease): Status: Acute Code(s): K21.9 - Gastro-esophageal reflux disease without esophagitis Qualifiers: Esophagitis presence: without esophagitis Qualified Code(s): K21.9 - Gastro-esophageal reflux disease without esophagitis Discharge Plan Disposition Patient Disposition: Home, Self-Care Condition: Good Follow up Plan Follow up with: Boby Ramon MD [Staff Physician, ELECTRONICS DEPARTMENT MANAGER] - 10/14/24 Rd Baer II, MD [Staff Physician, Gastroenterology] - 10/10/24 10:30 am Prescriptions/Medication Reconciliation: Continued metoprolol succinate 25 mg tablet extended release 24 hr 12.5 mg PO DAILY omeprazole 20 mg Capsule,Delayed Release(Dr/Ec) 20 mg PO DAILY thiamine HCl (vitamin B1) 100 mg tablet 100 mg PO DAILY PNV no.95-ferrous fumarate-FA [] 28 mg iron- 800 mcg Tablet 1 tab PO DAILY ferrous sulfate [Iron (ferrous sulfate)] 325 mg (65 mg iron) Tablet 325 mg PO DAILY Qty: 30 3RF promethazine 12.5 mg tablet 12.5 mg PO TID PRN (Reason: Nausea And Vomiting) Changed potassium chloride 10 mEq tablet,ER particles/crystals 40 meq PO Q4H Qty: 360 0RF Patient Comments: Patient reports taking 2 10 meq twice daily magnesium glycinate 100 mg Tablet 400 mg PO BID Qty: 240 0RF Patient Comments: Patient reports taking an OTC magnesium glycinate 420mg at HS Problem Reconciliation Problems Reviewed?: Yes Patient Discharge Instructions ACTIVITY: Continue current activity DIET: regular diet Patient Instructions: DI for Hypokalemia, How to Do Kick Counts, Antepartum Care, and Pelvic Rest Print Language: Gambian Providers Primary Care Provider: Norma Friedman Admit Provider: Nneka Stanley Attending Provider: Nneka Stanley
== END 2024-10-08 17:50 | disposition home or self-care (01) ==
LOC: OBOUT 10:16 → OB 10:16
PROVIDERS: Obstetrics & Gynecology; Admitting Provider Obstetrics & Gynecology; PCP Nurse Practitioner Family; Visit Provider Obstetrics & Gynecology
DX: O99.283 Endocrine, nutritional and metabolic diseases complicating pregnancy, third trimester (principal); O99.891 Other specified diseases and conditions complicating pregnancy; O99.343 Other mental disorders complicating pregnancy, third trimester; O26.613 Liver and biliary tract disorders in pregnancy, third trimester; O99.613 Diseases of the digestive system complicating pregnancy, third trimester; O09.293 Supervision of pregnancy with other poor reproductive or obstetric history, third trimester; E87.6 Hypokalemia; E83.42 Hypomagnesemia; R00.0 Tachycardia, unspecified; F43.0 Acute stress reaction; E26.1 Secondary hyperaldosteronism; R74.01 Elevation of levels of liver transaminase levels; K59.09 Other constipation; K21.9 Gastro-esophageal reflux disease without esophagitis; Z3A.32 32 weeks gestation of pregnancy; Z98.891 History of uterine scar from previous surgery; Z87.59 Personal history of other complications of pregnancy, childbirth and the puerperium; Z91.010 Allergy to peanuts; Z79.899 Other long term (current) drug therapy
CPT/HCPCS: 59025; 80053; 81001; 83735; 84132; 85025; 96361; 96365; 96366; 96367; 99212; G0378; G0463; J3475; J3480; J7120

== ENCOUNTER 2024-10-10 08:11 | Outpatient (CLI) | payer OTHER, SELFPAY ==
--- OUTSIDE RECORDS SUMMARY | 2024-08-19 10:15 | XMS_ITS | Encounter Summary ---
Author Organization [facility] Address [address] [place] [address] Care Team Providers Care Complaints Coordinator Name Role Phone Norma Friedman APRN Primary Care Provider + [phone] Reason for Visit * Reason Comments Routine Visit Encounter Details Date Type Department Care Team (Late st Contact Info) Description 08/19/2024 10:15 AM EDT Routine [facility] OBGYN [address] [place] [address] Jcaey Mathews, EDUCATIONAL ASSISTANT TEACHER [address] [place] [address] GA: 25w1d Social History Tobacco Use Types Packs/Day Years Used Date Smoking Tobacco: Never Smokeless Tobacco: Never Alcohol Use Standard Drinks/Week Comments Never 0 (1 standard drink = 0.6 oz pur e alcohol) [facility] Utilities Answer Date Recorded In the past 12 months has [employer], gas, oil, or water [employer] threatened to shut off services in your [...] heating? Not hard at all 05/28/2024 [facility] [place] [facility] Health - Occupational Stress Questionnaire Answer [...] GED or equivalent No 05/28/2024 Preferred Language Venezuelan 05/28/2024 PHQ-2 Answer Date Recorded Patient Health [...] this encounter Progress Notes * Jacey Mathews, EDUCATIONAL ASSISTANT TEACHER - 08/19/2024 10:15 AM EDT Images from [...] Visit [facility] GASTR[facility]Y [address] [facility] [address] [place] [address] Robbin Escalante MD [address] [facility] [address] [place] [address] documented as of this encounter Visit Diagnoses Diagnosis Vaginal bleeding in - Primary 25 weeks gestation of documented in this encounter Additional Health Concerns Assessment Noted Time PHQ-2 Depression Total Score: 2 05/28/19 25 4:39 PM EDT documented as of this encounter Care Teams Complaints Coordinator Relationship Specialty Start Date End Date Norma Friedman APRN [address] [place] [address] [place] [id number] PCP - General Family Medicine 05/14/24 documented as of this encounter
--- OUTSIDE RECORDS SUMMARY | 2024-08-19 13:59 | XMS_ITS | Encounter Summary ---
[facility] [address] [place] [address] Care Team Providers Care Digital Field Service Technician Name Role Phone Ivyashlyn Norma FERNÁNDEZ Primary Care Provider + [phone] Reason for Visit * Reason Comments Vaginal Bleeding * Auth/Cert (Routine) Specialty Diagnoses / Procedures Referred By Contleyla t Referred To Contact Referral ID Status Reason Start Date Expiration Date Visits Re quested Visits Authorized [id number] 1 1 Encounter Details Date Type Department Care Team (Late st Contact Info) Description 08/19/2024 1:59 PM EDT - 08/20/2024 4:28 PM EDT Hospital Encounter [facility] [address] [place] [phone] Rob Wharton MD [address] [facility] [address] [place] [address] Blu Alvarado MD [address] [facility] [address] [place] [address] Dysphagia, unspecified type (Primary Dx) Discharge Disposition: Home or Self Care Social History Tobacco Use Types Packs/Day Years Used Date Smoking Tobacco: Never Smokeless Tobacco: Never Alcohol Use Standard Drinks/Week Comments Never 0 (1 standard drink = 0.6 oz pur e alcohol) [facility] Utilities Answer Date Recorded In the past 12 months has [employer], gas, oil, or water Compound Time threatened to shut off services in your [...] Not hard at all 05/28/2024 [facility] of Occupat ional Health - Occupational Stress [...] GED or equivalent No 05/28/2024 Preferred Language Citizen Of [place] 05/28/2024 PHQ-2 Answer Date Recorded Patient Health [...] 1:23 PM EDT Polly Lacey RN * Nicholas Suicide Severity Rating Scale (Screener/Recent Self-Report) Question [...] Labs beginning of week and f/u with az Seng Test Results Pending at Discharge Pending Labs Order Current Status Tissue Pathology Exam In process Rob Wharton MD 08/20/24 15:36 EDT Time: Discharge <30 min documented in this encounter Discharge Instructions * Attachments The following attachments cannot be sent through Care Everywhere. * Second Trimester of (Citizen Of [place]) * Upper Endoscopy Adult Care After (Citizen Of [place]) documented in this encounter Medications at Time [...] 08/19/2024 RH Positive 08/19/2024 ABSCRN Negative 08/19/2024 [id number] non-reactive 04/12/2024 HEPCVIRUSABY negative 04/12/2024 URINECX Final [...] IUPC: Resting Tone: Resting Tone by IUPC: Bigelow Units: Cervix: Exam by: Method: sterile vaginal [...] from the original note were not included. [facility] Obstetric History and Physical Referring [...] her third trimesters prior pregnancies(etiology unknown). 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 She states has never had a [...] IUPC: Resting Tone: Resting Tone by IUPC: Bigelow Units: Laboratory Results: Lab Results (last 24 [...] AM EDTAssociated Order(s): IP CONSULT TO GASTROENTEROLOGY [facility] Consult Referring Provider: Dr. Fan/Dr. Wharton [...] expresses concern regarding recent CT scan at [facility] revealing a hiatal hernia. CT scan done prior to most recent due to ovarian cyst and incidentally revealed hiatal hernia. She reports chronic gastrointestinal symptoms. Review of medical record revealed prior GI referral due to blood per rectum. She reports colonoscopy in 2020 at outside facility that revealed diverticulosis and benign colon polyp. She is currently established with provider at [facility] for gastroenterology care she reports repeat [...] , await recommendations following EGD - consider WATER HAULER evaluation if no etiology for difficulty swallowing [...] from the original note were not included. [facility] Obstetric History and Physical Referring [...] her third trimesters prior pregnancies(etiology unknown). 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 She states has never had a [...] IUPC: Resting Tone: Resting Tone by IUPC: Bigelow Units: Laboratory Results: Lab Results (last 24 [...] 3:30 PM EST Office Visit [facility] [address] [facility] [phone] Robbin Escalante MD [address] [facility] [address] documented as of this encounter Procedures Procedure Name Priority Date/Time Associated Diagnosis Comments TISSUE PATHOLOGY EXAM Routine 08/20/2024 1:55 PM EDT Dysphagia, unspecified type ND ESOPHAGOGASTRODUODENOSCOP Y TRANSORAL DIAGNOSTIC 08/20/2024 1:44 PM EDT Dysphagia, unspecified type UPPER GI ENDOSCOPY 08/20/2024 1:09 PM EDT BASIC METABOLIC PANEL STAT 08/20/2024 5:25 AM EDT POTASSIUM STAT 08/19/2024 8:53 PM EDT ABORH 2ND SPECIMEN VERIFICATION STAT 08/19/2024 4:34 PM EDT NONSTRESS TEST Routine 08/19/2024 4:17 PM EDT [facility] Routine 08/19/2024 3:25 PM [...] EDT) Case Report Surgical Pathology Report Case: [id number] Authorizing Provider: Blu Alvarado MD Collected: 08/20/2024 [...] ORDERABLES Final Result [facility]
[address] [place] [address], * Upper GI Endoscopy (08/20/2024 1:09 PM EDT) us Blu Alvarado MD INTERFACE NEEDS Final Result * (ABNORMAL) Basic Metabolic Panel (08/20/2024 5:25 AM EDT) Glucose 84 65 - 99 mg/dL 08/20/2024 6:13 AM EDT [facility] BUN 2.3(L) 6.0 - 20.0 mg/dL 08/20/2024 6:13 AM EDT [facility] Creatinine 0.51(L) 0.57 - 1.00 mg/dL 08/20/2024 6:13 AM EDT [facility] Sodium 139 136 - 145 mmol/L 08/20/2024 6:13 AM EDT [facility] Potassium 3.5 3.5 - 5.2 mmol/L 08/20/2024 6:13 AM EDT [facility] Chloride 109(H) 98 - 107 mmol/L 08/20/2024 6:13 AM EDT [facility] CO2 23.5 22.0 - 29.0 mmol/L 08/20/2024 6:13 AM EDT [facility] Calcium 7.8(L) 8.6 - 10.5 mg/dL 08/20/2024 6:13 AM EDT [facility] BUN/Creatinine Ratio 4.5(L) 7.0 - 25.0 08/20/2024 6:13 AM EDT [facility] Anion Gap 6.5 5.0 - 15.0 mmol/L 08/20/2024 6:13 AM T [facility] eGFR 126.6 >60.0 mL/min/1.7 3 08/20/2024 6:13 AM T [facility] Blood Venipuncture / Unknown 08/20/2024 5:25 AM EDT 08/20/2024 5:46 AM EDT [facility] - 08/20/2024 6:13 AM EDT [...] ORDERABLES Final Resu lt Performing Organization Address City/[facility]/ZIP Co de Phone Number [facility]
[address] [place] [address], * (ABNORMAL) Potassium (08/19/2024 8:53 PM EDT) Potassium 2.7(L) 3.5 - 5.2 mmol/L 08/19/2024 9:20 PM EDT [facility] Blood Venipuncture / Unknown 08/19/2024 8:53 PM EDT 08/19/2024 9:04 PM EDT Kt Fan DO LAB BLOOD ORDERABLES Final Result Performing Organization Address [facility] Co de Phone Number [facility]
[address] [place] [address], * ABO RH Specimen Verification (08/19/2024 4:34 PM EDT) ABO Type O 08/19/2024 7:39 PM EDT [facility] RH type Positive 08/19/2024 7:39 PM EDT [facility] Blood Venipuncture / Unknown 08/19/2024 4:34 PM EDT 08/19/2024 4:53 PM EDT Rob Wharton MD BLOOD BANK TEST ORDER FRANCO Final Result Performing Organization Address City/[facility]/ZIP Co de Phone Number [facility]
[address] [place] [address], * [facility] (08/19/2024 3:25 PM EDT) Anatomical Region Laterality Modality Ultrasound 08/19/2024 3:09 PM EDT Narrative 08/19/2024 4:54 PM EDT PAT NAME: CAROLE GIRARD MED REC#: [id number] DA: 1990 PAT GEND: F PAT TYPE: E EXAM TRAVIS: [id number] REF PHYS ROB WHARTON Comparison Studies The [...] EFW (oz) 9 oz EFW by: Hadlock ([id number]) Extended Cav. septi pel. tr 4.7 mm Barrel Roller Operator 3.8 mm CM 7.5 mm 84% [...] Heart / Thorax 3-vessel view: Appears normal 9-qfgvjy-vesuwua view: Appears normal Stomach: Appears normal Kidneys: [...] Colt Umbilical A HR 128 bpm Impression Craole presented to [facility] today with complaints of [...] in 4wks for growth. Coding ======= Description: [id number] Follow Up National Flatbed Truck Driver: RT Annetta Hartmann , [facility] Physician: Jo Chappell MD Electronically signed by: oJ Chappell MD at: 16:54 Procedure Note Jo Chappell MD - 08/19/2024 PAT NAME: CAROLE GIRARD MED REC#: [id number] DA: 1990 PAT GEND: F PAT TYPE: E EXAM TRAVIS: [id number] REF PHYS ROB WHARTON Comparison Studies The findings of this study are compared to the prior ultrasound studydated 07/22/24 Patient Status Inpatient Indication ======== History of c/s x1. History of . Vaginal bleeding. Maternal Assessment Uvgdcc175 cm Height (ft)5 ft Height (in)4 in Kolrtg71 kg Weight (lb)158 lb BMI27.31 kg/m Method ======= Transabdominal ultrasound examination. View: Limited by patient bodyhabitus ========= Love . Number of fetuses: 1 Dating ====== Method of dating:based on stated DUSTY GA by prior [id number] w + 1 d DUSTY by prior assessment:12/01/2024 Ultrasound examination on:08/19/2024 GA by U/S based upon:AC, BPD, Femur, HC GA by U/S24 w + 2 d DUSTY by U/S:12/07/2024 Previous dating:based on stated DUSTY, selected on 07/22/2024 Agreed DUSTY of previous datin12/01/2024 Assigned:based on stated DUSTY, selected on 08/19/2024 Assigned GA25 w + 1 d Assigned DUSTY:12/01/2024 [id number] d Biometry Standard BPD57.6 mm 23w 4d 5% Hadlock OFD81.6 mm 26w 4d 88% Jamal HC225.7 mm 24w 4d 13% Hadlock Cerebellum tr28.9 mm 25w 2d 62% Hill AC194.9 mm 24w 1d 15% Hadlock Femur44.9 mm 24w 6d 27% Hadlock Iyzwkgs71.3 mm 25w 3d 50% Jamal HC / AC1.16 AGS406 g 24w 2d 16% Hadlock EFW (lb)1 lb EFW (oz)9 oz EFW by:Hadlock ([id number]) Extended Cav. septi pel. tr4.7 mm Vp3.8 mm CM7.5 mm 84% Nicolaides Head / Face / Neck Cephalic index0.71 <1% Nicolaides Extremities / Bony Struc FL / BPD0.78 FL / HC0.20 FL / AC0.23 Other Structures BIW783 bpm General Evaluation Cardiac activity present. FHR [...] normal Heart / Thorax 3-vessel view:Appears normal 5-aymniu-dqaammt view:Appears normal Stomach:Appears normal Kidneys:Appears normal Bladder:Appears normal Gender:female Wants to know gender:yes Maternal Structures Uterus / Cervix Cervix:Visualized Approach:Transabdominal Cervical erjcia12.9 mm Doppler Arterial Umbilical A PI1.01 32% [...] office in 4wks for growth. Coding ======= Description:[id number] Follow Up National Flatbed Truck Driver: RT Annetta Hartmann , RDMS Physician: Jo Chappell MD Electronically signed by: Jo Chappell MD at: 16:54 us Kt Fan DO G US ORDERABLES Final Res ult * Protein / Creatinine Ratio, Urine - Urine, Clean Catch (08/19/2024 3:02 PM EDT) Protein/Creati nine Ratio, Urine 126.1 0.0 - 200.0 mg/G Crea 08/20/2024 12:47 AM EDT [facility] Creatinine, Urine 148.3 mg/dL 08/20/2024 12:47 AM EDT [facility] Total Protein, Urine 18.7 mg/dL 08/20/2024 12:47 AM EDT [facility] Urine Urine specimen obtained by clean catch procedure / Unknown Collection / Unknown 08/19/2024 3:02 PM EDT 08/19/2024 4:26 PM EDT Kt Fan URINE ORDERABLES Final Resu lt [facility]
[address] [place] [address], [place] [phone] * (ABNORMAL) Magnesium (08/19/2024 3:02 PM EDT) Magnesium 1.5(L) 1.6 - 2.6 mg/dL 08/19/2024 5:12 PM EDT [facility] Blood Line / Unknown 08/19/2024 3: 02 PM EDT 08/19/2024 3:10 PM EDT Kt Fan DO LAB BLOOD ORDERABLES Final Result [facility]
[address] [place] [address], [place] [phone] * Urinalysis, Microscopic Only - Urine, Clean [...] Final Resu lt [facility]
[address] [place] [address], * (ABNORMAL) CBC Auto Differential (08/19/2024 3:02 [...] - 450 10*3/mm3 08/19/2024 3:23 PM EDT [facility] Neutrophil % 66.8 42.7 - 76.0 % 08/19/2024 3:23 PM EDT [facility] Lymphocyte % 24.4 19.6 - 45.3 % 08/19/2024 3:[facility] Monocyte % 7.6 5.0 - 12.0 % 08/19/2024 3:23 PM [facility] Eosinophil % 0.7 0.3 - 6.2 % 08/19/2024 3:23 PM [facility] Basophil % 0.2 0.0 - 1.5 % 08/19/2024 3:23 PM [facility] Immature Grans % 0.3 0.0 - 0.5 % 08/19/2024 3:23 PM [facility] Neutrophils, Absolute 6.14 1.70 - 7.00 10*3/mm3 08/19/2024 3:23 PM [facility] Lymphocytes, Absolute 2.24 0.70 - 3.10 10*3/mm3 08/19/2024 3:23 PM EDT [facility] Monocytes, Absolute 0.70 0.10 - 0.90 10*3/mm3 08/19/2024 3:23 PM EDT [facility] Eosinophils, Absolute 0.06 0.00 - 0.40 10*3/mm3 08/19/2024 3:23 PM [facility] Basophils, Absolute 0.02 0.00 - 0.20 10*3/mm3 08/19/2024 3:23 PM EDT [facility] Immature Grans, Absolute 0.03 0.00 - 0.05 10*3/mm3 08/19/2024 3:23 PM EDT [facility] nRBC 0.0 0.0 - 0.2 /100 WBC 08/19/2024 3:23 PM EDT [facility] Blood Line / Unknown 08/19/2024 3: 02 PM EDT 08/19/2024 3:10 PM EDT Kt Fan DO LAB BLOOD ORDERABLES Final Result [facility]
[address] [place] [address], * (ABNORMAL) Urinalysis With Microscopic If Indicated (No Culture) - Urine, Clean Catch (08/19/2024 3:02 PM EDT) Color, UA Yellow Yellow, Straw 08/19/2024 3:33 PM EDT [facility] Appearance, UA Clear Clear 08/19/2024 3:33 PM EDT [facility] pH, UA >=9.0(H) 5.0 - 8.0 08/19/2024 3:33 PM EDT [facility] Specific [place], UA 1.018 1.005 - 1.030 08/19/2024 3:33 [...] ORDERABLES Final Resu lt Performing Organization Address City/[facility]/ZIP Co de Phone Number [facility]
[address] [place] [address], [place] [phone] * Amylase (08/19/2024 3:02 PM EDT) Amylase 73 28 - 100 U/L 08/19/2024 3:36 PM EDT [facility] Blood Line / Unknown 08/19/2024 3: 02 PM EDT 08/19/2024 3:10 PM EDT us Kt Fan DO LAB BLOOD ORDERABLES Final Result Performing Organization Address [facility] Co de Phone Number [facility]
[address] [place] [address], [place] [phone] * Lipase (08/19/2024 3:02 PM EDT) Lipase 13 13 - 60 U/L 08/19/2024 3:36 PM EDT [facility] Blood Line / Unknown 08/19/2024 3: 02 PM EDT 08/19/2024 3:10 PM EDT us Kt Fan DO LAB BLOOD ORDERABLES Final Result Performing Organization Address City/[facility]/ZIP Co de Phone Number [facility]
[address] [place] [address], * (ABNORMAL) Comprehensive Metabolic Panel (08/19/2024 3:02 PM EDT) [facility] Glucose 75 65 - 99 mg/dL [...] - 5.2 mmol/L 08/19/2024 3:38 PM EDT [facility] Comment:Specimen hemolyzed. Result may be falsely elevated. Chloride 99 98 - 107 mmol/L 08/19/2024 3:38 PM EDT [facility] CO2 24.2 22.0 - 29.0 mmol/L 08/19/2024 3:38 PM EDT [facility] Calcium 8.8 8.6 - 10.5 mg/dL 08/19/2024 3:38 PM EDT [facility] Total Protein 6.6 6.0 - 8.5 g/dL 08/19/2024 3:38 PM EDT [facility] Albumin 3.4(L) 3.5 - 5.2 g/dL 08/19/2024 3:38 PM EDT [facility] ALT (SGPT) 10 1 - 33 U/L 08/19/2024 3:38 PM EDT [facility] AST (SGOT) 22 1 - 32 U/L 08/19/2024 3:38 PM EDT [facility] Alkaline Phosphatase 64 39 - 117 U/L 08/19/2024 3:38 PM EDT [facility] Total Bilirubin 0.5 0.0 - 1.2 mg/dL 08/19/2024 3:38 PM EDT [facility] Globulin 3.2 gm/dL 08/19/2024 3:38 PM EDT [facility] Comment:Calculated Result A/G [...] PM EDT 08/19/2024 3:10 PM EDT Narrative [facility] - 08/19/2024 3:38 PM [...] Final Result [facility]
[address] [place] [address], * Type & Screen (08/19/2024 3:02 PM [...] BANK TEST ORDERABLES Edited Result - Final [facility]
[address] [place] [address], documented in this encounter Visit Diagnoses Diagnosis [...] Nicole RN)[id number] (New Bag - Provider: Yun Nicoel RN) 0042 (New Bag - Provider: Yun [...] documented as of this encounter Care Teams Digital Field Service Technician Relationship Specialty Start Date End Date Norma Friedman APRN [address] [place] G3 [place]IAH [address] PCP - General Family Medicine 05/14/24 documented as of this encounter
--- OUTSIDE RECORDS SUMMARY | 2024-08-20 13:33 | XMS_ITS | Encounter Summary ---
[facility] Address [address] [place] [address] Care Team Providers Care Home Theater Specialist Name Role Phone Norma Friedman APRN Primary Care Provider + [phone] Reason for Visit * Reason Comments Vaginal Bleeding * Auth/Cert (Routine) Specialty Diagnoses / Procedures Referred By Tarik t Referred To Contact Referral ID Status Reason Start Date Expiration Date Visits Re quested Visits Authorized [id number] 1 1 Encounter Details Date Type Department Care Team (Late st Contact Info) Description 08/20/2024 1:33 PM EDT - 08/20/2024 2:05 PM EDT Surgery [facility] ENDO SUITES [address] [place] [address] Blu Alvarado MD [address] [facility] [address] [place] [address] ESOPHAGOGASTRODUODENOSCOPY [11511 (CPT )] Social History Tobacco Use Types Packs/Day Years Used Date Smoking Tobacco: Never Smokeless Tobacco: Never Alcohol Use Standard Drinks/Week Comments Never 0 (1 standard drink = 0.6 oz pur e alcohol) [facility] Utilities Answer Date Recorded In the [...] and heating? Not hard at all 05/28/2024 [facility] - Occupational Stress Questionnaire Answer Date [...] GED or equivalent No 05/28/2024 Preferred Language [place] Island[place] 05/28/2024 PHQ-2 Answer Date Recorded Patient [...] 1:23 PM EDT Polly Lacey RN * Logan Suicide Severity Rating Scale (Screener/Recent Self-Report) Question [...] [facility] Results Pending at Discharge Pending Labs Order Current Status Tissue Pathology Exam In process Rob Wharton MD 08/20/24 15:36 EDT Time: Discharge <30 min documented in this encounter Discharge Instructions * Attachments The following attachments cannot be sent through Care Everywhere. * Second Trimester of ([place] Islander) * Upper Endoscopy Adult Care After ([place] Islander) documented in this encounter Medications at [...] 08/19/2024 RH Positive 08/19/2024 ABSCRN Negative 08/19/2024 [id number] non-reactive 04/12/2024 HEPCVIRUSABY negative 04/12/2024 URINECX Final [...] IUPC: Resting Tone: Resting Tone by IUPC: [place] Units: Cervix: Exam by: Method: sterile vaginal [...] the original note were not included. [facility] Obstetric History and Physical Referring Provider: Rob [...] her third trimesters prior pregnancies(etiology unknown). Patient's escort service attendant is in [facility]. She states has never had [...] IUPC: Resting Tone: Resting Tone by IUPC: [place] Units: Laboratory Results: Lab Results (last 24 [...] AM EDTAssociated Order(s): IP CONSULT TO [facility]STRO[facility]OLOGY [facility] Gastroenterology Consult Referring Provider: [...] expresses concern regarding recent CT scan at [facility] revealing a hiatal hernia. CT scan done prior to most recent due to ovarian cyst and incidentally revealed hiatal hernia. She reports chronic gastrointestinal symptoms. Review of medical record revealed prior GI referral due to blood per rectum. She reports colonoscopy in 2020 at outside facility that revealed diverticulosis and benign colon polyp. She is currently established with provider at [facility] for gastroenterology care she reports [...] , await recommendations following EGD - consider MEDICAL RECORD CODER evaluation if no etiology for difficulty swallowing [...] the original note were not included. [facility] Obstetric History and Physical Referring Provider: Rob [...] her third trimesters prior pregnancies(etiology unknown). Patient's escort service attendant is in [facility]. She states has never had [...] IUPC: Resting Tone: Resting Tone by IUPC: [place] Units: Laboratory Results: Lab Results (last 24 [...] Visit [facility] GASTROENTEROLOGY [address] [id number] Robbin Escalante MD [address] [address] documented as of this encounter Procedures Procedure [...] EDT) Case Report Surgical Pathology Report Case: [id number] Authorizing Provider: Blu Alvarado MD Collected: 08/20/2024 01:55 PM Ordering Location: [facility] Received: 08/20/2024 02:14 PM ENDO SUITES Pathologist: Khalida Rhoades DO Specimen: Gastric, Antrum, antrum bx for path 08/22/2024 9:18 AM EDT [facility] Clinical Information Dysphagia, unspecified type 08/22/2024 9:18 AM EDT [facility] Final Diagnosis Stomach, antrum, biopsy: 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 pylori is negative (no organisms are identified) Negative for intestinal metaplasia, dysplasia, or malignancy 08/22/2024 9:18 AM EDT [facility] at 0918 EDT Gross Description 1. Gastric, Antrum. Received in formalin labeled antrum biopsy is a 0.4 x 0.2 x 0.2 cm pink-see soft tissue fragment submitted entirely in a single cassette. HDM 08/22/2024 9:18 AM EDT [facility] Microscopic Description The slides are reviewed and demonstrate histopathologic features supporting the above rendered diagnosis. 08/22/2024 9:18 AM EDT [facility] Tissue Pyloric antrum structure / Unknown 08/20/2024 1:55 PM EDT 08/20/2024 2:14 PM EDT us Blu Alvarado MD PATHOLOGY/CYTOLOGY ORDERABLES Final Result [facility]
[address] [place] [address], * Upper GI Endoscopy (08/20/2024 1:09 PM EDT) us Blu Alvarado MD INTERFACE NEEDS Final Result * (ABNORMAL) Basic Metabolic Panel (08/20/2024 5:25 AM EDT) Glucose 84 65 - 99 mg/dL 08/20/2024 6:13 AM EDT [facility] BUN 2.3(L) 6.0 - 20.0 mg/dL 08/20/2024 6:13 AM T [facility] Creatinine 0.51(L) 0.57 - 1.00 mg/dL 08/20/2024 6:13 AM [facility] Sodium 139 136 - 145 mmol/L 08/20/2024 6:13 AM EDT [facility] Potassium 3.5 3.5 - 5.2 mmol/L 08/20/2024 6:13 AM EDT [facility] Chloride 109(H) 98 - 107 mmol/L 08/20/2024 6:13 AM [facility] CO2 23.5 22.0 - 29.0 mmol/L 08/20/2024 6:13 AM [facility] Calcium 7.8(L) 8.6 - 10.5 mg/dL 08/20/2024 6:13 AM [facility] BUN/Creatinine Ratio 4.5(L) 7.0 - 25.0 08/20/2024 6:13 AM [facility] Anion Gap 6.5 5.0 - 15.0 mmol/L 08/20/2024 6:13 AM [facility] eGFR 126.6 >60.0 mL/min/1.7 3 08/20/2024 6:13 AM [facility] Blood Venipuncture / Unknown 08/20/2024 5:25 AM EDT 08/20/2024 5:46 AM T [facility] LABORATORY - 08/20/2024 6:13 [...] City/[facility]/ZIP Co de Phone Number [facility]
[address] [place] [address], * (ABNORMAL) Potassium (08/19/2024 8:53 PM EDT) Potassium 2.7(L) 3.5 - 5.2 mmol/L 08/19/2024 9:20 PM EDT [facility] Blood Venipuncture / Unknown 08/19/2024 8:53 PM EDT 08/19/2024 9:04 PM EDT Kt Fan DO LAB BLOOD ORDERABLES Final Result Performing Organization Address [facility] Co de Phone Number [facility]
[address] [place] [address], * ABO RH Specimen Verification (08/19/2024 4:34 PM EDT) ABO Type O 08/19/2024 7:39 PM EDT [facility] LABORATORY RH type Positive 08/19/2024 7:39 PM EDT [facility] Blood Venipuncture / Unknown 08/19/2024 4:34 PM EDT 08/19/2024 4:53 PM EDT Rob Wharton MD BLOOD BANK TEST ORDER FRANCO Final Result Performing Organization Address City/[facility]/ZIP Co de Phone Number [facility] BB LABORATORY
[address] [place] [address], * [facility] (08/19/2024 3:25 PM EDT) Anatomical Region Laterality Modality Ultrasound 08/19/2024 3:09 PM EDT Narrative 08/19/2024 4:54 PM EDT PAT NAME: CAROLE GIRARD MED REC#: [id number] DA: 1990 PAT GEND: F PAT TYPE: E EXAM TRAVIS: [id number] REF PHYS ROB WHARTON Comparison Studies The [...] ====== Method of dating: based on stated DUTSY GA by prior assessment 25 w + 1 d DUSYT by prior assessment: 12/01/2024 Ultrasound examination on: [...] EFW (oz) 9 oz EFW by: Hadlock ([id number]) Extended Cav. septi pel. tr 4.7 mm Special Systems Technician 3.8 mm CM 7.5 mm 84% Nicolaides [...] Heart / Thorax 3-vessel view: Appears normal 9-hkuyng-nnkofzx view: Appears normal Stomach: Appears normal Kidneys: [...] in 4wks for growth. Coding ======= Description: [id number] Follow Up Guard Supervisor: Alison Verduzco RT R , [place] Physician: Jo Chappell MD Electronically signed by: Jo Chappell MD at: 16:54 Procedure Note Jo Chappell MD - 08/19/2024 PAT NAME: CAROLE GIRARD MED REC#: [id number] DA: [id number] PAT GEND: F PAT TYPE: E EXAM TRAVIS: [id number] REF PHYS ROB WHARTON Comparison Studies The findings of this study are compared to the prior ultrasound studydated 07/22/24 Patient Status Inpatient Indication ======== History of c/s x1. History of . Vaginal bleeding. Maternal Assessment Afypne328 cm Height (ft)5 ft Height (in)4 in Bfrjcr91 kg Weight (lb)158 lb BMI27.31 kg/m Method ======= Transabdominal ultrasound examination. View: Limited by patient bodyhabitus ========= Love . Number of fetuses: 1 Dating ====== Method of dating:based on stated DUSTY GA by prior [id number] w + 1 d DUSTY by prior assessment:12/01/2024 Ultrasound examination on:08/19/2024 GA by U/S based upon:AC, BPD, Femur, HC GA by U/S24 w + 2 d DUSTY by U/S:12/07/2024 Previous dating:based on stated DUSTY, selected on 07/22/2024 Agreed DUSTY of previous datin12/01/2024 Assigned:based on stated DUSTY, selected on 08/19/2024 Assigned GA25 w + 1 d Assigned DUSTY:12/01/2024 [id number] d Biometry Standard BPD57.6 mm 23w 4d 5% Hadlock OFD81.6 mm 26w 4d 88% Jamal HC225.7 mm 24w 4d 13% Hadlock Cerebellum tr28.9 mm 25w 2d 62% Hill AC194.9 mm 24w 1d 15% Hadlock Femur44.9 mm 24w 6d 27% Hadlock Opyqzzb78.3 mm 25w 3d 50% Jamal HC / AC1.16 RZV458 g 24w 2d 16% Hadlock EFW (lb)1 lb EFW (oz)9 oz EFW by:Hadlock ([id number]) Extended Cav. septi pel. tr4.7 mm Vp3.8 mm CM7.5 mm 84% Nicolaides Head / Face / Neck Cephalic index0.71 <1% Nicolaides Extremities / Bony Struc FL / BPD0.78 FL / HC0.20 FL / AC0.23 Other Structures [id number] bpm General Evaluation Cardiac activity present. FHR [...] normal Heart / Thorax 3-vessel view:Appears normal 7-etjjrb-hamkjay view:Appears normal Stomach:Appears normal Kidneys:Appears normal Bladder:Appears normal Gender:female Wants to know gender:yes Maternal Structures Uterus / Cervix Cervix:Visualized Approach:Transabdominal Cervical yxnyoa06.9 mm Doppler Arterial Umbilical A PI1.01 32% [...] office in 4wks for growth. Coding ======= Description:[id number] Follow Up Guard Supervisor: RT Annetta Hartmann , [facility] Physician: Jo Chappell MD Electronically signed by: Jo Chappell MD at: 16:54 us Kt Fan DO [facility] US ORDERABLES Final Res ult * Protein / Creatinine Ratio, Urine - Urine, Clean Catch (08/19/2024 3:02 PM EDT) Protein/Creati nine Ratio, Urine 126.1 0.0 - 200.0 mg/G Crea 08/20/2024 12:47 AM EDT [facility] Creatinine, Urine 148.3 mg/dL 08/20/2024 12:47 AM EDT [facility] Total Protein, Urine 18.7 mg/dL 08/20/2024 12:47 AM EDT [facility] Urine Urine specimen obtained by clean catch procedure / Unknown Collection / Unknown 08/19/2024 3:02 PM EDT 08/19/2024 4:26 PM EDT Kt Fan DO URINE ORDERABLES Final Resu lt [facility]
[address] [place] [address], [place] [phone] * (ABNORMAL) Magnesium (08/19/2024 3:02 PM EDT) Magnesium 1.5(L) 1.6 - 2.6 mg/dL 08/19/2024 5:12 PM EDT [facility] Blood Line / Unknown 08/19/2024 3: 02 PM EDT 08/19/2024 3:10 PM EDT Kt Fan DO LAB BLOOD ORDERABLES Final Result Performing Organization Address City/[facility]/ZIP Co de Phone Number [facility]
[address] [place] [address], [place] [phone] * Urinalysis, Microscopic Only - Urine, Clean Catch (08/19/2024 3:02 PM EDT) RBC, UA 0-2 None Seen, 0-2 /HPF 08/19/2024 3:33 PM EDT [facility] WBC, UA 0-2 None Seen, 0-2 /HPF 08/19/2024 3:33 PM EDT [facility] Bacteria, UA None Seen None Seen /HPF 08/19/2024 3:33 PM EDT [facility] Squamous Epithelial Cells, UA 0-2 None Seen, 0-2 /HPF 08/19/2024 3:33 PM EDT [facility] Hyaline Casts, UA None Seen None Seen /LPF 08/19/2024 3:33 PM EDT [facility] Methodology Automated Microscopy 08/19/2024 3:33 PM EDT [facility] Urine Urine specimen obtained by clean catch procedure / Unknown Collection / Unknown 08/19/2024 3:02 PM EDT 08/19/2024 3:13 PM EDT Kt Fan DO URINE ORDERABLES Final Resu lt [facility]
[address] [place] [address], * (ABNORMAL) CBC Auto Differential (08/19/2024 3:02 PM EDT) WBC 9.19 3.40 - 10.80 10*3/mm3 08/19/2024 3:23 PM EDT [facility] RBC 3.58(L) 3.77 - 5.28 10*6/mm3 08/19/2024 3:23 PM EDT [facility] Hemoglobin 10.5(L) 12.0 - 15.9 g/dL 08/19/2024 3:23 PM EDT [facility] Hematocrit 31.4(L) 34.0 - 46.6 % 08/19/2024 3:23 PM EDT [facility] MCV 87.7 79.0 - 97.0 fL 08/19/2024 3:23 PM EDT [facility] MCH 29.3 26.6 - 33.0 pg 08/19/2024 3:23 PM EDT [facility] MCHC 33.4 31.5 - 35.7 g/dL 08/19/2024 3:23 PM EDT [facility] RDW 13.4 12.3 - 15.4 % 08/19/2024 3:23 PM EDT [facility] RDW-SD 42.4 37.0 - 54.0 fl 08/19/2024 3:23 PM EDT [facility] MPV 12.0 6.0 - 12.0 fL 08/19/2024 3:23 PM EDT [facility] Platelets 241 140 - 450 10*3/mm3 08/19/2024 3:23 PM EDT [facility] Neutrophil % 66.8 42.7 - 76.0 % 08/19/2024 3:23 PM EDT [facility] Lymphocyte % 24.4 19.6 - 45.3 % 08/19/2024 3:23 PM EDT [facility] Monocyte % 7.6 5.0 - 12.0 % 08/19/2024 3:23 PM EDT [facility] Eosinophil % 0.7 0.3 - 6.2 % 08/19/2024 3:23 PM EDT [facility] Basophil % 0.2 0.0 - 1.5 % 08/19/2024 3:23 PM EDT [facility] Immature Grans % 0.3 0.0 - 0.5 % 08/19/2024 3:23 PM EDT [facility] Neutrophils, Absolute 6.14 1.70 - 7.00 10*3/mm3 08/19/2024 3:23 PM EDT [facility] Lymphocytes, Absolute 2.24 0.70 - 3.10 10*3/mm3 08/19/2024 3:23 PM EDT [facility] Monocytes, Absolute 0.70 0.10 - 0.90 10*3/mm3 08/19/2024 3:23 PM EDT [facility] Eosinophils, Absolute 0.06 0.00 - 0.40 10*3/mm3 08/19/2024 3:23 PM EDT [facility] Basophils, Absolute 0.02 0.00 - 0.20 10*3/mm3 08/19/2024 3:23 PM EDT [facility] Immature Grans, Absolute 0.03 0.00 - 0.05 10*3/mm3 08/19/2024 3:23 PM EDT [facility] nRBC 0.0 0.0 - 0.2 /100 WBC 08/19/2024 3:23 PM EDT [facility] Blood Line / Unknown 08/19/2024 3: 02 PM EDT 08/19/2024 3:10 PM EDT Kt Fan DO LAB BLOOD ORDERABLES Final Result [facility]
[address] [place] [address], * (ABNORMAL) Urinalysis With Microscopic If Indicated (No Culture) - Urine, Clean Catch (08/19/2024 3:02 PM EDT) Color, UA Yellow Yellow, Straw 08/19/2024 3:33 PM EDT [facility] Appearance, UA Clear Clear 08/19/2024 3:33 PM EDT [facility] pH, UA >=9.0(H) 5.0 - 8.0 08/19/2024 3:33 PM EDT [facility] Specific [place], UA 1.018 1.005 - 1.030 08/19/2024 3:33 PM EDT [facility] Glucose, UA Negative Negative 08/19/2024 3:33 PM EDT [facility] Ketones, UA 15 mg/dL (1+)(A) Negative 08/19/2024 3:33 PM EDT [facility] Bilirubin, UA Negative Negative 08/19/2024 3:33 PM EDT [facility] Blood, UA Negative Negative 08/19/2024 3:33 PM EDT [facility] Protein, UA 30 mg/dL (1+)(A) Negative 08/19/2024 3:33 PM EDT [facility] Leuk Esterase, UA Negative Negative 08/19/2024 3:33 PM EDT [facility] Nitrite, UA Negative Negative 08/19/2024 3:33 PM EDT [facility] Urobilinogen, UA 1.0 E.U./dL 0.2 - 1.0 E.U./dL 08/19/2024 3:33 PM EDT [facility] Urine Urine specimen obtained by clean catch procedure / Unknown Collection / Unknown 08/19/2024 3:02 PM EDT 08/19/2024 3:13 PM EDT us Kt Fan DO URINE ORDERABLES Final Resu lt [facility]
[address] [place] [address], [place] [phone] * Amylase (08/19/2024 3:02 PM EDT) Amylase 73 28 - 100 U/L 08/19/2024 3:36 PM EDT [facility] Blood Line / Unknown 08/19/2024 3: 02 PM EDT 08/19/2024 3:10 PM EDT us Kt Fan DO LAB BLOOD ORDERABLES Final Result Performing Organization Address [facility] Co de Phone Number [facility]
[address] [place] [address], [place] [phone] * Lipase (08/19/2024 3:02 PM EDT) Lipase 13 13 - 60 U/L 08/19/2024 3:36 PM EDT [facility] Blood Line / Unknown 08/19/2024 3: 02 PM EDT 08/19/2024 3:10 PM EDT us Kt Fan DO LAB BLOOD ORDERABLES Final Result Performing Organization Address City/[facility]/ZIP Co de Phone Number [facility]
[address] [place] [address], [place] [phone] * (ABNORMAL) Comprehensive Metabolic Panel (08/19/2024 3:02 PM EDT) Glucose 75 65 - 99 mg/dL 08/19/2024 3:38 PM EDT [facility] BUN 3.6(L) 6.0 - 20.0 mg/dL 08/19/2024 3:38 PM T [facility] Creatinine 0.51(L) 0.57 - 1.00 mg/dL 08/19/2024 3:38 PM EDT [facility] Sodium 137 136 - 145 mmol/L 08/19/2024 3:38 PM T [facility] Potassium 2.6(LL) 3.5 - 5.2 mmol/L 08/19/2024 3:38 PM [facility] Comment:Specimen hemolyzed. Result may be falsely elevated. Chloride 99 98 - 107 mmol/L 08/19/2024 3:38 PM [facility] CO2 24.2 22.0 - 29.0 mmol/L 08/19/2024 3:38 PM T [facility] Calcium 8.8 8.6 - 10.5 mg/dL 08/19/2024 3:38 PM T [facility] Total Protein 6.6 6.0 - 8.5 g/dL 08/19/2024 3:38 PM [facility] Albumin 3.4(L) 3.5 - 5.2 g/dL 08/19/2024 3:38 PM [facility] ALT (SGPT) 10 1 - 33 U/L 08/19/2024 3:38 PM T [facility] AST (SGOT) 22 1 - 32 U/L 08/19/2024 3:38 PM T [facility] Alkaline Phosphatase 64 39 - 117 U/L 08/19/2024 3:38 PM [facility] Total Bilirubin 0.5 0.0 - 1.2 mg/dL 08/19/2024 3:38 PM T [facility] Globulin 3.2 gm/dL 08/19/2024 3:38 PM T [facility] Comment:Calculated Result A/G Ratio 1.1 g/dL 08/19/2024 3:38 PM EDT [facility] BUN/Creatinine Ratio 7.1 7.0 - 25.0 08/19/2024 3:38 PM EDT [facility] Anion Gap 13.8 5.0 - 15.0 mmol/L 08/19/2024 3:38 PM EDT [facility] eGFR 126.6 >60.0 mL/min/1.7 3 08/19/2024 3:38 PM EDT [facility] Blood Line / Unknown 08/19/2024 3: 02 PM EDT 08/19/2024 3:10 PM EDT [facility] LABORATORY - 08/19/2024 3:38 PM EDT [...] Fan DO LAB BLOOD ORDERABLES Final Result [facility]
[address] [place] [address], * Type & Screen (08/19/2024 3:02 PM EDT) ABO Type O 08/19/2024 3:51 PM EDT [facility] LABORAT[facility] RH type Positive 08/19/2024 3:51 PM EDT [facility] Antibody Screen Negative 08/19/2024 3:51 PM EDT [facility] T&S Expiration Date 08/22/2024 11:59:59 PM 08/19/2024 3:51 PM EDT [facility] Blood Line / Unknown 08/19/2024 3: 02 PM EDT 08/19/2024 3:15 PM EDT Kt Fan DO BLOOD BANK TEST ORDERABLES Edited Result - Final [facility] LAB[facility]
[address] [place] [address], documented in this encounter Visit Diagnoses Diagnosis [...] BPA Driven Protocol Open Order & Select [facility] Electrolyte Replacement Protocol Algorithm to [...] unable to swallow. 1903 (Given - Provider: Pliar Verduzco, BRIT) 0608 (Given - Provider: Yun [...] documented as of this encounter Care Teams Home Theater Specialist Relationship Specialty Start Date End Date Norma Friedman APRN [address] [place] G3 RAFAELA APPIAH [id number] PCP - General Family Medicine 05/14/24 documented as of this encounter
--- OUTSIDE RECORDS SUMMARY | 2024-08-20 13:44 | XMS_ITS | Encounter Summary ---
[facility] Address [address] [place] [phone] Care Team Providers Care Technologist Development Name Role Phone IvyKade goldbergdev FERNÁNDEZ Primary Care Provider + [phone] Reason for Visit * Auth/Cert (Routine) Specialty Diagnoses / Procedures Referred By Contac t Referred To Contact Referral ID Status Reason Start Date Expiration Date Visits Re quested Visits Authorized 1 1 Encounter Details Date Type Department Care Team (Late st Contact Info) Description 08/20/2024 1:44 PM EDT Anesthesia Event [facility] ENDO SUITES [address] [place] [address] Akash Anguiano MD [address] [place] [address] Liborio Peralta CRNA [address] [place] [address] Anesthesia Record Procedure Summary Procedure Name Responsible [...] = 0.6 oz pur e alcohol) [facility] Utilities Answer Date Recorded In [...] and heating? Not hard at all 05/28/2024 [facility] [place] of Occupat ional Health - Occupational Stress [...] GED or equivalent No 05/28/2024 Preferred Language Iranian 05/28/2024 PHQ-2 Answer Date Recorded Patient Health [...] 1:23 PM EDT Polly Lacey RN * [place] Suicide Severity Rating Scale (Screener/Recent Self-Report) Question Answer Date of Assessment Author 6. Suicidal Behavior (Lifetime) No 1:23 PM EDT Polly Cabrera RN documented as of this encounter OR Notes * Anesthesia Postprocedure Evaluation - Liborio Peralta CRNA - 08/20/2024 2:18 PM EDT Patient: Whitney Presley Procedure Summary Date: 08/20/24 Room / Location: [facility] ENDOSCOPY 3 / [facility] Anesthesia Start: [...] sounds: normal. 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 Plan discussed with COW WASHER. CODE STATUS: documented in this encounter Plan of Treatment Upcoming Encounters Date Type Department Care Team (Late st Contact Info) Description 01/20/2025 3:30 PM EST Office Visit [facility] GASTROENTEROLOGY [address] [facility] [address] Robbin Escalante MD [address] [address] documented as of this encounter Procedures Procedure [...] and Staff Patient location during procedure: OR COW WASHER/CAA: Junior Zbigniew Jain, DAYNE Indications and Patient [...] documented as of this encounter Care Teams Technologist Development Relationship Specialty Start Date End Date Norma Friedman APRN [address] [place] [address] [place] [address] PCP - General Family Medicine 05/14/24 documented as of this encounter
--- OUTSIDE RECORDS SUMMARY | 2024-08-29 10:00 | XMS_ITS | Encounter Summary ---
[facility] Address [address] [place] [address] Care Team Providers Care Industrial Nurse Name Role Phone IvyKade goldbergjoseseven JOLENE Primary Care Provider + [phone] Reason for Visit * Reason Comments Problem Encounter Details Date Type Department Care Team (Late st Contact Info) Description 08/29/2024 10:00 AM EDT Routine [facility] OBGYN [address] [place] [address] Satci Jain MD [address] [place] [address] GA: 26w4d Social History Tobacco Use Types Packs/Day Years Used Date Smoking Tobacco: Never Smokeless Tobacco: Never Alcohol Use Standard Drinks/Week Comments Never 0 (1 standard drink = 0.6 oz pur e alcohol) [facility] Utilities Answer Date Recorded In the past 12 months has [employer], gas, oil, or water [employer] threatened to shut off services [...] hard at all 05/28/2024 [facility] [place] [facility] - Occupational Stress Questionnaire [...] GED or equivalent No 05/28/2024 Preferred Language [place] Citizen 05/28/2024 PHQ-2 Answer Date Recorded Patient Health [...] Visit [facility] GASTROENTEROLOGY [address] [address] Robbin Escalante MD [address] [address] documented as of this encounter Procedures Procedure [...] 08/30/2024 6:09 AM EDT Performed at: [address] [id number] Ergonomics Consultant: Kevin Harman MD, Phone: [phone] Patient Fasting: N us Staci Jain MD LAB BLOOD ORDERABLES Final Result [facility] (AMBULATORY) [address] [place] [address], [facility] [address] [place] [address], * (ABNORMAL) Comprehensive Metabolic Panel (08/29/2024 11:05 [...] 11:0 5 AM EDT 08/29/2024 Narrative [facility] (AMBULATORY) - 08/30/2024 6:09 AM EDT Performed at: 01 - [place] [address] [address] [place], [place] [id number] Ergonomics Consultant: Kevin Harman MD, Phone: [phone] Patient Fasting: N Staci Jain MD LAB BLOOD ORDERABLES Final Result Performing Organization Address City/[facility]/ZIP Co de Phone Number [facility] (AMBULATORY) [address] [place] [address], [place] [phone] [facility] [address] [place] [address], [place] [phone] * (ABNORMAL) POC Urinalysis Dipstick (08/29/2024 10:13 AM EDT) Glucose, UA Negative Negative mg/dL [facility] Protein, POC Trace(A) Negative mg/dL [facility] Urine 08/29/2024 10:1 3 AM EDT us Staci Jain MD POINT OF CARE TEST OR DERABLES Final Result Performing Organization Address City/[facility]/ZIP Co de Phone Number [facility]
[address] [place] [address], documented in this encounter Visit Diagnoses Diagnosis [...] documented as of this encounter Care Teams Industrial Nurse Relationship Specialty Start Date End Date Norma Friedman APRN [address] [place] [place] [address] PCP - General Family Medicine 05/14/24 documented as of this encounter
--- OUTSIDE RECORDS SUMMARY | 2024-09-23 10:00 | XMS_ITS | Encounter Summary ---
Author Organization [facility] Address [address] [place] [address] Care Team Providers Care Collar Closer Lockstitch Name Role Phone Norma Friedman JOLENE Primary Care Provider +1- [phone] Reason for Referral * Consultation (Routine) - Closed Specialty Diagnoses / Procedures Referred By Contac t Referred To Contact Cardiology Diagnoses Supervision of high risk , antepartum Cardiac arrhythmia, unspecified cardiac arrhythmia type Liborio Weller MD [address] [facility] [address] [place] [address] Phone: tel: fax: Referral ID Status Reason Start Date Expiration Date V isits Requested Visits Authorized [id number] Closed Specialty Services Required 09/23/2024 03/25/2026 1 1 Encounter Details Date Type Department Care Team ([facility] st Contact Info) Description 09/23/2024 10:00 AM EDT Office Visit Medical Office Building Obstetrics and Gynecology [address] [facility], [address] [place] [address] Liborio Weller MD [address] [facility] 140 [place] [address] Supervision of high risk , [...] more drinks on one occasion? Never 09/23/2024 [place] Depression Scale Answer Date Recorded [place] Depression Scale Total 0 09/23/2024 The thought [...] last week on 09/19. She presented to [facility] for chest pain and palpitations. [...] 09/25 and has otherwise never seen a lead welder. She has never seen a salt lifter. She also reports during this admission she [...] None N JAGDISH Complications: Potassium (K) deficiency [place] Depression Scale Total: 0 Gynecology History No [...] has a past surgical history that includes [place] tooth extraction (N/A); section, low transverse (N/A); [...] prescription(s): ferosul, potassium chloride cr, prenat mv-min w/tp-qkburx-utv, and thiamine. Allergies Allergies[1] Review of Systems [...] Had tachycardia and arrhythmia during admission to [facility] on 09/19 HR to 170s-180s with [...] other day Has never been evaluated by lead welder for salt wasting nephropathy PLAN Has nephrology [...] the patient, and documenting this visit. (Est [id number]) Brandee Pringle MD Obstetrics & Gynecology, PGY-2 [...] Info) Description 10/17/2024 8:30 AM EDT Appointment [facility] Ultrasound [address] [place] [address] 10/24/2024 8:00 AM EDT Office Visit [facility] [place] [address] [facility], [address] [place] [address] Nneka Block MD [address] [place] [address] 12/25/2024 1:00 PM EST Office Visit [facility] [place] Nephrology, Bone & Mineral Metabolism [address] [facility], [address] [place] [address] Scheduled Referrals Name Type Priority [...] Ketones, Urine 40(A) Negative mg/dL POCT Specific [place], Urine 1.015 POCT Blood, Urine Negative Negative POCT pH, Urine >=9.0(A) 5.0 to 8.0 POCT Protein, Urine 100(A) Negative mg/dL POCT Urobilinogen, Urine 0.2 0.2, 1 E.U./dL POCT Nitrite, Urine Negative Negative POCT Leukocyte Esterase, Urine Negative Negative Test Strip Lot Number [id number] Test Strip Lot Expiration 07/2025 Urine Urine [...] documented as of this encounter Care Teams Collar Closer Lockstitch Relationship Specialty Start Date End Date Norma Friedman APRN [address] [place] [id number] PCP - General 09/23/24 documented as of this encounter
--- OUTSIDE RECORDS SUMMARY | 2024-09-25 14:20 | XMS_ITS | Encounter Summary ---
Author Organization Healthcare Address [address] [place] [address] Care Team Providers Care Flight Surveyor Name Role Phone Norma Friedman JOLENE Primary Care Provider +1- [phone] Reason for Referral * Consultation (Routine) - Authorized Specialty Diagnoses / Procedures Referred By Tarik pedersen Referred To Contact Diagnoses Hypokalemia Bill Patrick MD [address] [place] [phone] Phone: tel: fax: Referral ID Status Reason Start Date Expiration Date V isits Requested Visits Authorized [id number] Authorized 09/25/2024 03/27/2026 1 1 * Imaging (Routine) - Authorized Specialty Diagnoses / Procedures Referred By Tarik pedersen Referred To Contact Radiology Diagnoses Hypokalemia Procedures US Renal Complete Bill Patrick MD [address] [place] [phone] Phone: tel: fax: Referral ID Status Reason Start Date Expiration Date V isits Requested Visits Authorized [id number] Authorized 09/25/2024 03/27/2026 1 1 Reason for Visit * Reason Comments Consult * Consultation (Routine) - Closed Specialty Diagnoses / Procedures Referred By Tarik pedersen Referred To Contact Nephrology Diagnoses Hypokalemia Liborio Weller MD [address] [address] Phone: tel: fax: [facility] Nephrology, Bone & Mineral Metabolism [address] , [address] [place] [address] Phone: tel: fax: Referral ID Status Reason Start Date Expiration Date V isits Requested Visits Authorized [id number] Closed Specialty Services Required 09/14/2024 03/16/2026 1 1 Encounter Details Date Type Department Care Team (Late st Contact Info) Description 09/25/2024 2:20 PM EDT Office Visit [facility] Nephrology, Bone & Mineral Metabolism [address] , [address] [place] [address] Bill Patrick MD [address] [place] [address] Hypokalemia (Primary Dx) Social History [...] more drinks on one occasion? Never 09/23/2024 [place] Depression Scale Answer Date Recorded [place] Depression Scale Total 0 09/23/2024 The thought [...] 37 weeks andshe did not see a Anger Control Counselor at that time. Also notes she has [...] Date SECTION, LOW TRANSVERSE N/A section from [facility] DILATION AND CURETTAGE OF UTERUS N/A Dilation and curettage from [facility] WISDOM TOOTH EXTRACTION N/A Oral Surgery Tooth Extraction [place] Tooth from [employer] [3] Family History Problem Relation Name Age [...] mouth 3 times a day.) Prenat MV-Min w/Cy-Cicsib-TTR ( COMPLETE PO) thiamine (Vitamin B-1) 100 [...] Info) Description 10/17/2024 8:30 AM EDT Appointment [facility] Ultrasound [address] [place] [address] 10/24/2024 8:00 AM EDT Office Visit [facility] [place] [address], [address] [place] [address] Nneka Block MD [address] [place] [address] 12/25/2024 1:00 PM EST Office Visit [facility] Nephrology, Bone & Mineral Metabolism [address], [address] [place] [address] Scheduled Orders Name Type Priority [...] Chloride, Urine 25 mmol/L 2:03 PM EDT [facility] Urine Urine specimen obtained by clean catch procedure / Unknown Non-blood Collection / Unknown 09/26/2024 10:07 AM EDT 09/26/2024 10:07 AM EDT us Bill Patrick MD LAB URINE ORDERABLES Final Resul t [facility] [address] [place] [address] * Protein, Random, Urine with Creatinine (09/26/2024 10:03 AM EDT) Protein, Urine 26 mg/dL 09/26/2024 12:08 PM EDT [facility] Creatinine, Urine 199 mg/dL 09/26/2024 12:08 PM EDT [facility] Protein/Creati nine Ratio 0.1 mg/mg Creat 09/26/2024 12:08 PM EDT [facility] Urine Urine specimen obtained by clean catch procedure / Unknown Non-blood Collection / Unknown 09/26/2024 10:03 AM EDT 09/26/2024 10:04 AM EDT us Bill Patrick MD LAB URINE ORDERABLES Final Resul t Performing Organization Address City/[facility] Co de Phone Number [facility] [address] [place] [address] * Potassium, urine, random (09/26/2024 10:02 AM EDT) Potassium, Urine 43 mmol/L 09/26/2024 11:55 AM EDT [facility] Urine Urine specimen obtained by clean catch procedure / Unknown Non-blood Collection / Unknown 09/26/2024 10:02 AM EDT 09/26/2024 10:02 AM EDT us Bill Patrick MD LAB URINE ORDERABLES Final Resul t Performing Organization Address [facility] de Phone Number [facility] [address] [place] [address] * Osmolality, urine (09/26/2024 10:02 AM EDT) Osmolality, Urine 404 50 - 1,200 mOsm/kg 09/26/2024 1:48 PM EDT [facility] Urine Urine specimen obtained by clean catch procedure / Unknown Non-blood Collection / Unknown 09/26/2024 10:02 AM EDT 09/26/2024 10:02 AM EDT us Bill Patrick MD LAB URINE ORDERABLES Final Resul t Performing Organization Address City/[facility] Co de Phone Number [facility] [address] [place] [address] * Sodium, urine, random (09/26/2024 10:02 AM EDT) Sodium, Urine 110 mmol/L 09/26/2024 11:55 AM EDT [facility] Urine Urine specimen obtained by clean catch procedure / Unknown Non-blood Collection / Unknown 09/26/2024 10:02 AM EDT 09/26/2024 10:02 AM EDT us Bill Patrick MD LAB URINE ORDERABLES Final Resul t [facility] [address] [place] [address] * Antinuclear Antibody (JEFFERY), HEp-2, IgG (09/26/2024 9:32 AM EDT) JEFFERY INTERPRETIVE COMMENT See Note 09/28/2024 5:13 PM EDT [facility] ([email or web address]) Anti Nuc Ab Screen <1:80 <1:80 09/28/2024 5:13 PM EDT [facility] ([email or web address]) Blood Venous blood specimen / Unknown Venipuncture / Unknown 09/26/2024 9:32 AM EDT 09/26/2024 9:32 AM EDT Narrative [facility] ([facility]RI) - 09/28/2024 5:13 PM EDT [...] rings, and cytoplasmic speckled patterns. Performed By: [facility] [address] [place] [address] Dressmaker Garment Fitter: Brandon Bell MD, PhD CLIA Number: [id number] Bill Patrick MD LAB BLOOD ORDERABLES Final Resul t [facility]) [address] [place] [address] * Rheumatoid factor, plasma (09/26/2024 9:32 AM EDT) Rheumatoid Factor, Plasma <10 <14 IU/mL 09/26/2024 1:49 PM EDT [facility] Blood Venous blood specimen / Unknown Venipuncture / Unknown 09/26/2024 9:32 AM EDT 09/26/2024 9:32 AM EDT Bill Patrick MD LAB BLOOD ORDERABLES Final Resul t [facility] [address] [place] [address] * SSB (LA) (YARA) ANTIBODY, IGG (09/26/2024 9:32 AM EDT) SSB (LA) (YARA) Antibody, IgG 0 0 - 40 AU/mL 09/28/2024 5:47 PM EDT [facility] [employer] (TERRI) Serum Venous blood specimen / Unknown 09/26/2024 9:32 AM EDT 09/26/2024 9:32 AM EDT Narrative [facility]) - 09/28/2024 5:47 PM EDT INTERPRETIVE INFORMATION: [...] (PSS) also have this antibody. Performed By: [facility] [address] [place] [address] Dressmaker Garment Fitter: Brandon Bell MD, PhD CLIA Number: [id number] Bill Patrick MD LAB BLOOD ORDERABLES Final Resul t [facility] ([email or web address]) [address] [place] [address] * SSA 52 and 60 (Ro) (YARA) Antibodies, IgG (09/26/2024 9:32 AM EDT) SSA-52 (RO52) (YARA) Antibody, IgG 2 0 - 40 AU/mL 09/28/2024 5:47 PM EDT [facility] ([email or web address]) SSA-60 (RO60) (YARA) Antibody, IgG 0 0 - 40 AU/mL 09/28/2024 5:47 PM EDT [facility] ([email or web address]) Serum 09/26/2024 9:32 AM EDT 09/26/2024 9:32 AM EDT Narrative [facility] ([email or web address]) - 09/28/2024 5:47 PM EDT INTERPRETIVE INFORMATION: [...] AU/mL or Greater .......... Positive Performed By: [facility] [address] [place] [address] Dressmaker Garment Fitter: Brandon Bell MD, PhD CLIA Number: [id number] Bill Patrick MD LAB REF LAB BLOOD AND FLUID ORD Final Result [facility] ([facility]) [address] [place] [address] * (ABNORMAL) Renal function panel (09/26/2024 9:32 AM EDT) Pathologist [facility] Glucose, Plasma 87 74 - 99 mg/dL 09/26/2024 12:24 PM EDT [facility] BUN, Plasma 5(L) 7 - 21 mg/dL 09/26/2024 12:24 PM EDT [facility] Creatinine, Plasma 0.72 0.60 - 1.10 mg/dL 09/26/2024 12:24 PM EDT [facility] BUN/Creatinine Ratio 7 09/26/2024 12:24 PM EDT [facility] Sodium, Plasma 135(L) 136 - 145 mmol/L 09/26/2024 12:24 PM EDT [facility] Potassium, Plasma 3.1(L) 3.6 - 4.9 mmol/L 09/26/2024 12:24 PM EDT [facility] Chloride, Plasma 95(L) 97 - 107 mmol/L 09/26/2024 12:24 PM EDT [facility] CO2, Plasma 26 22 - 29 mmol/L 09/26/2024 12:24 PM EDT [facility] Anion Gap 14 6 - 16 mmol/L 09/26/2024 12:24 PM EDT [facility] Total Calcium, Plasma 9.4 8.9 - 10.2 mg/dL 09/26/2024 12:24 PM EDT [facility] Phosphorus, Plasma 3.5 2.5 - 4.5 mg/dL 09/26/2024 12:24 PM EDT [facility] Albumin, Plasma 3.6 3.5 - 5.2 g/dL 09/26/2024 12:24 PM EDT [facility] eGFRcr 113.4 mL/min/1.7 3m*2 09/26/2024 12:24 PM EDT [facility] Comment:Reported eGFRcr in m L/min/1.73m2 is based the CKD-EPI 2020 equation that does not use a race coefficient. Blood Venous blood specimen / Unknown Venipuncture / Unknown 09/26/2024 9:32 AM EDT 09/26/2024 9:32 AM EDT us Bill Patrick MD LAB BLOOD ORDERABLES Final Resul t Performing Organization Address City/[facility] Co de Phone Number [facility] [address] [place] [address] * (ABNORMAL) Osmolality (09/26/2024 9:32 AM EDT) Osmolality, Serum 273(L) 275 - 295 mOsm/Kg 09/26/2024 2:10 PM EDT [facility] Blood Venous blood specimen / Unknown Venipuncture / Unknown 09/26/2024 9:32 AM EDT 09/26/2024 9:32 AM EDT us Bill Patrick MD LAB BLOOD ORDERABLES Final Resul t Performing Organization Address [facility] de Phone Number [facility] [address] [place] [address] documented in this encounter Visit Diagnoses Diagnosis Hypokalemia- Primary Hypopotassemia documented in this encounter Additional Health Concerns Assessment Noted Time A fall risk assessment has been complete d for the patient 09/25/2024 3:05 PM EDT A Body Mass Index follow-up plan has been documented for the patient 10/05/2024 8:54 PM EDT documented as of this encounter Care Teams Flight Surveyor Relationship Specialty Start Date End Date Norma Friedman APRN [address] [place] [address] PCP - General 09/23/24 documented as of this encounter
--- OUTSIDE RECORDS SUMMARY | 2024-09-26 08:00 | XMS_ITS | Encounter Summary ---
Author Organization [facility] Address [address] [place] [address] Care Team Providers Care Toll Ticket Clerk Name Role Phone Norma Friedman LIFE INSURANCE AGENT Primary Care Provider +1- [phone] Lizz Trinh RN Unavailable Unavailable Reason for Referral * Consultation (Routine) - Authorized Specialty Diagnoses / Procedures Referred By Tarik pedesren Referred To Contact Diagnoses Palpitations Syncope and collapse Nneka Block MD [address] [place] [phone] Phone: tel: fax: Referral ID Status Reason Start Date Expiration Date V isits Requested Visits Authorized [id number] Authorized 09/26/2024 03/28/2026 1 1 * Cardiac Stress Testing (Routine) - Closed Specialty Diagnoses / Procedures Referred By Contac t Referred To Contact Cardiology Diagnoses Palpitations Syncope and collapse Procedures Adult Patch Monitor - 7 Day Nneka Block MD [address] [place] [phone] Phone: tel: fax: Referral ID Status Reason Start Date Expiration Date Visits Re quested Visits Authorized [id number] Closed 09/26/2024 03/28/2026 1 1 Reason for Visit * Consultation (Routine) - Closed Specialty Diagnoses / Procedures Referred By Contac t Referred To Contact Cardiology Diagnoses Supervision of high risk , antepartum Cardiac arrhythmia, unspecified cardiac arrhythmia type HoneydewLiborio Preciado MD [address] [address] Phone: tel: fax: Referral ID Status Reason Start Date Expiration Date V isits Requested Visits Authorized [id number] Closed Specialty Services Required 09/23/2024 03/25/2026 1 1 Encounter Details Date Type Department Care Team (Late st Contact Info) Description 09/26/2024 8:00 AM EDT Office Visit [facility] [place] [address] [facility], [address] [place] [address] Nneka Block MD [address] [place] [address] Syncope and collapse (Primary Dx); [...] more drinks on one occasion? Never 09/23/2024 [place] Depression Scale Answer Date Recorded [place] Depression Scale Total 0 09/23/2024 The thought [...] Block MD - 09/26/2024 8:00 AM EDT [place] [facility] ([facility]) Problem List #Hypomagnesium and Hypokalemia [...] home with no plans. 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 to evaluate for abnormal rhythms and [...] TOOTH EXTRACTION N/A Oral Surgery Tooth Extraction [place] Tooth from [employer] [3] Social History [...] Strain: Low Risk (05/28/2024) Received from [facility] Overall Financial Resource Strain (CARDIA) Difficulty of Paying Living Expenses: Not hard at all Food Insecurity: No Food Insecurity (05/28/2024) Received from [facility] Hunger Vital Sign Within the past 12 months, you worried that your food would run out before you got the money to buymore.: Never true Within the past 12 months, the food you bought just didn't last and you didn't have money to get more.: Never true Transportation Needs: No Transportation Needs (05/28/2024) Received from [facility] PRAPARE - Transportation In the past 12 months, has lack of transportation kept you from medical appointments or from getting medications?: No In the past 12 months, has lack of transportation kept you from meetings, work, or from getting things needed for daily living?: No Physical Activity: Sufficiently Active (05/28/2024) Received from [facility] Exercise Vital Sign On average, how many days per week do you engage in moderate to strenuous exercise (like a brisk walk)?: 5 days On average, how many minutes do you engage in exercise at this level?: 40 min Stress: Stress Concern Present (05/27/2024) Received from [facility] [employer] - Occupational Stress Questionnaire Feeling of Stress : To some extent Social Connections: Not At Risk (05/28/2024) Received from [facility] Family and Community Support If for any reason you need help with day-to-day activities such as bathing, preparing meals, shopping, managing finances, etc., do you get the help you need?: I don't need any help How often do you feel lonely or isolated from those around you?: Sometimes Intimate Partner Violence: Not At Risk (08/19/2024) Received from [facility] Abuse Screen Feels Unsafe at Home or Work/School: no Feels Threatened by Someone: no Does Anyone Try to Keep You From Having Contact with Others or Doing Things Outside Your Home?: no Physical Signs of Abuse Present: no Housing Stability: Not At Risk (08/20/2024) Received from [facility] Housing Stability Current Living Arrangements: home Potentially [...] EDT Appointment [facility] Ultrasound [address] [place] [address] 10/24/2024 8:00 AM EDT Office Visit [facility] [place] [address] [facility], [address] [place] [address] Nneka Block MD [address] [place] [address] 12/25/2024 1:00 PM EST Office Visit [facility] Nephrology, Bone & Mineral Metabolism [address] [facility], [address] [place] [address] Pending Results Name Type Priority [...] ECG Atrial Rate 84 BPM MUSE ECG PA Interval 148 ms MUSE ECG QRSD Interval 74 ms MUSE ECG QT Interval 374 ms MUSE ECG QTC Interval 441 ms MUSE ECG P [place] 60 degrees MUSE ECG R [place] 36 degrees MUSE ECG T Wave [place] 55 degrees MUSE ECG Diagnosis Normal sinus rhythm with sinus arrhythmia MUSE ECG Diagnosis Normal ECG MUSE ECG Diagnosis MUSE ECG Diagnosis Confirmed by Abad South ([id number]) on 09/26/2024 12:13:59 PM MUSE ECG 09/26/2024 [...] documented as of this encounter Care Teams Toll Ticket Clerk Relationship Specialty Start Date End Date Norma Friedman APRN [address] [place] [address] PCP - General 09/23/24 Lizz Trinh, RN [facility] Registered Nurse Cardiology 09/26/24 documented as of this encounter
--- OUTSIDE RECORDS SUMMARY | 2024-09-26 09:06 | XMS_ITS | Encounter Summary ---
Author Organization [facility] Address [address] [place] [address] Care Team Providers Care Hands And Dial Inspector Name Role Phone Elder Kadedev Coy BATTERY CONTAINER FINISHING HAND Primary Care Provider +1- [phone] Lizz Trinh RN Unavailable Unavailable Reason for Referral * Cardiac Stress Testing (Routine) - Closed Specialty Diagnoses / Procedures Referred By Tarik pedersen Referred To Contact Cardiology Diagnoses Palpitations Syncope and collapse Procedures Adult Patch Monitor - 7 Day Nneka Block MD [address] [place] [address] Phone: tel: fax: Referral ID Status Reason Start Date Expiration Date Visits Re quested Visits Authorized [id number] Closed 09/26/2024 03/28/2026 1 1 Reason for Visit * Cardiac Stress Testing (Routine) - Closed Specialty Diagnoses / Procedures Referred By Tarik pedersen Referred To Contact Cardiology Diagnoses Palpitations Syncope and collapse Procedures Adult Patch Monitor - 7 Day Nneka Block MD [address] [place] [address] Phone: tel: fax: Referral ID Status Reason Start Date Expiration Date Visits Re quested Visits Authorized [id number] Closed 09/26/2024 03/28/2026 1 1 Encounter Details Date Type Department Care Team (Latest Contact Info) Description 09/26/2024 9:06 AM EDT - 09/26/2024 11:59 PM EDT Hospital Encounter Medical Office Building Cardiac Diagnostic Testing Medical Office Building Echo Lab [address], [address] [place] [address] Palpitations; Syncope and collapse Discharge [...] more drinks on one occasion? Never 09/23/2024 [facility] Depression Scale Answer Date Recorded [facility] Depression Scale Total 0 09/23/2024 The thought [...] Take 1 tablet by mouth daily. 09/12/2024 omeprazole (PriLOSEC) [address] capsule Take 1 capsule by mouth 1 time each day. ondansetron ODT (Zofran-ODT) 4 MG disintegrating tablet DISSOLVE 1 TABLET IN MOUTH EVERY 8 HOURS NEEDED FOR NAUSEA AND VOMITING FOR 4 DAYS pantoprazole (Protonix) 40 MG EC tablet 12/14/2023 potassium chloride CR 10 MEQ PO ER tablet Take 1 tablet by mouth 2 times a day. 09/02/2024 Prenat MV-Min w/Cp-Sqsnpg-[facility] ( COMPLETE PO) 12/25/2018 thiamine (Vitamin B-1) 100 MG tablet Take 1 tablet by mouth 1 time each day. 09/01/2024 metoprolol succinate XL (Toprol XL) 25 MG 24 hr tablet Take 0.5 tablets by mouth 2 times a day. Do not crush or chew. 30 tablet 1 09/23/2024 potassium chloride (Klor-Con) 20 MEQ packet Take twice a day for 3 days each week. Weekly labs 09/01/2024 documented as of this encounter Plan of Treatment Upcoming Encounters Date Type Department Care Team (Late st Contact Info) Description 10/17/2024 8:30 AM EDT Appointment [facility] Ultrasound [address], [address] [place] [address] 10/24/2024 8:00 AM EDT Office Visit [facility] [place] [address], [address] [place] [address] Nneka Block MD [address] [place] [address] 12/25/2024 1:00 PM EST Office Visit [facility] Nephrology, Bone & Mineral Metabolism [address], [address] [place] [address] Pending Results Name Type Priority [...] documented as of this encounter Care Teams Hands And Dial Inspector Relationship Specialty Start Date End Date Norma Friedman APRN [address] [place] [address] PCP - General 09/23/24 Lizz Trinh, RN [facility] Registered Nurse Cardiology 09/26/24 documented as of this encounter
[2024-10-10 08:15] VITALS: BP 111/64; PULSE 99; RESP 18; O2SAT 99
--- OUTSIDE RECORDS SUMMARY | 2024-10-10 08:29 | XMS_ITS | Clinical Summary ---
Author Organization [facility] [place] [address] Phone Care Team Providers Care Powder Blender Name Role Phone Unavailable Primary Care Provider [...] migh t be different from the original. [facility] - Edwardo Ojeda MD Interventional Pain Protocol: NS Appt 03/29/22 Letter Sent Maxime report completed (EVERY 3 MONTHS) ( 03/23/22) Pharmacy: [facility] [address] [place] [id number] - [phone] [facility] south - [phone] No known active problems Social History Tobacco [...] patient's age to complete this topic Insurance [employer] [facility] [place] [address] [place] [id number] FORMERLY [facility], [facility] [employer] [facility] [address]
--- OUTSIDE RECORDS SUMMARY | 2024-10-10 08:30 | XMS_ITS | Encounter Summary ---
Author Organization [facility] Address [address] [place] [id number] Care Team Providers Care Hide Dyer Name Role Phone Elder Norma FERNÁNDEZ Primary Care Provider + [phone] Encounter Details Date Type Department Care Team (Late st Contact Info) Description 07/07/2024 Results Follow-Up [facility] OBGYN [address] [place] [address] [place] [phone] Kelly Delgado APRN [address] [facility] [address] [place] [address] Social History Tobacco Use Types Packs/Day Years Used Date Smoking Tobacco: Never Smokeless Tobacco: Never Alcohol Use Standard Drinks/Week Comments Never 0 (1 standard drink = 0.6 oz pur e alcohol) [facility] Utilities Answer Date Recorded In the past 12 months has [employer], gas, oil, or water [employer] threatened to shut off services in [...] and heating? Not hard at all 05/28/2024 [facility] of Occupat ional Health [...] 01/20/2025 3:30 PM EST Office Visit [facility] GASTROENTEROLOGY [address] [facility] [address] [address] Robbin Escalante MD [address] [address] documented as of this encounter Visit Diagnoses Not on filedocumented in this encounter Additional Health Concerns Assessment Noted Time PHQ-2 Depression Total Score: 2 05/28/19 25 4:39 PM EDT documented as of this encounter Care Teams Hide Dyer Relationship Specialty Start Date End Date Norma Friedman APRN [address] [place] [address] [place] [address] PCP - General Family Medicine 05/14/24 documented as of this encounter
--- OUTSIDE RECORDS SUMMARY | 2024-10-10 08:30 | XMS_ITS | Encounter Summary ---
[facility] Organization [facility] Address [address] [place] [address] Care Team Providers Care Cook Helper Pastry Name Role Phone Elder Norma FERNÁNDEZ Primary Care Provider + [phone] Encounter Details Date Type Department Care Team (Latest Contact Info) Description 08/29/2024 Travel Social History Tobacco Use Types Packs/Day Years Used Date Smoking Tobacco: Never Smokeless Tobacco: Never Alcohol Use Standard Drinks/Week Comments Never 0 (1 standard drink = 0.6 oz pur e alcohol) [facility] Utilities Answer Date Recorded In the past 12 months has [employer], gas, oil, or water company threatened [...] and heating? Not hard at all 05/28/2024 [facility] of Occupat ional Health - Occupational Stress [...] GED or equivalent No 05/28/2024 Preferred Language Guamanian 05/28/2024 PHQ-2 Answer Date Recorded Patient Health [...] EST Office Visit [facility] GASTROENTEROLOGY [address] [facility] [address] [place] [phone] Robbin Escalante MD [address] [facility] [address] [place] [address] documented as of this encounter Visit Diagnoses Not on filedocumented in this encounter Additional Health Concerns Assessment Noted Time PHQ-2 Depression Total Score: 2 05/28/19 25 4:39 PM EDT documented as of this encounter Care Teams Cook Helper Pastry Relationship Specialty Start Date End Date Norma Friedman APRN [address] [place] [address] [place] [address] PCP - General Family Medicine 05/14/24 documented as of this encounter
--- OUTSIDE RECORDS SUMMARY | 2024-10-10 08:30 | XMS_ITS | Encounter Summary ---
Author Organization [facility] Address [address] [place] [address] Care Team Providers Care Player Piano Technician Name Role Phone Elder Kadedev Coy APRN Primary Care Provider [phone] Lizz Trinh RN Unavailable Unavailable Reason for Referral * Consultation (Routine) - Authorized Specialty Diagnoses / Procedures Referred By Tarik pedersen Referred To Contact Nephrology Diagnoses History of proteinuria syndrome care, subsequent , second trimester Staci Jain MD [address] [address] Phone: tel: fax: [facility] [place] Nephrology, Bone & Mineral Metabolism [address] [facility], [address] [place] [address] Phone: tel: fax: Referral ID Status Reason Start Date Expiration Date Visits Requested Visits Authorized [id number] Authorized Specialty Services Required 07/22/2024 01/21/2026 1 1 Encounter Details Date Type Department Care Team (Late st Contact Info) Description 07/22/2024 Community Orders [facility] [address] [place] [address] Staci Jain MD [address] [place] [address] History of proteinuria syndrome (Primary Dx); care, [...] Info) Description 10/17/2024 8:30 AM EDT Appointment [facility] Ultrasound [address] [place] [address] 10/24/2024 8:00 AM EDT Office Visit [facility] [facility] [address] [facility], [address] [place] [address] Nneka Block MD [address] [place] [address] 12/25/2024 1:00 PM EST Office Visit [facility] Nephrology, Bone & Mineral Metabolism [address] [facility], [address] [place] [address] Scheduled Referrals Name Type Priority Associated Diagnoses Orde r Schedule Ambulatory referral to Nephrology Outpatient Referral Routine History of proteinuria syndrome care, subsequent , second trimester Expected: 07/22/2024 (Approximate), Expires: 01/23/2026 documented as of this encounter Visit Diagnoses Diagnosis History of proteinuria syndrome- Primary care, subsequent , second trimester documented in this encounter Care Teams Player Piano Technician Relationship Specialty Start Date End Date Norma Friedman APRN [address] [place] [address] PCP - General 09/23/24 Lizz Trinh, RN [facility] Registered Nurse Cardiology 09/26/24 documented as of this encounter
--- OUTSIDE RECORDS SUMMARY | 2024-10-10 08:30 | XMS_ITS | Encounter Summary ---
[facility] Address [address] [place] [phone] Care Team Providers Care Geophysical Engineer Name Role Phone Ivyashlyn Norma FERNÁNDEZ Primary Care Provider + [phone] Encounter Details Date Type Department Care Team (Late st Contact Info) Description 09/02/2024 Telephone [facility] OBGYN [address] [address] Staci Jain MD [address] [place] [id number] Social History Tobacco Use Types Packs/Day Years Used Date Smoking Tobacco: Never Smokeless Tobacco: Never Alcohol Use Standard Drinks/Week Comments Never 0 (1 standard drink = 0.6 oz pur e alcohol) [facility] Utilities Answer Date Recorded In the past 12 months has [employer], [employer], oil, or water [employer] threatened to shut off services in your [...] GED or equivalent No 05/28/2024 Preferred Language Nicaraguan 05/28/2024 PHQ-2 Answer Date Recorded Patient Health [...] PM EDT She just got d/c'd from [facility] 2 hours ago and they gave her a total 10 MLE of K+ and 3 units of Mag and 2 liters of LR. She has decided to transfer care to [facility] as it iscloser to her like 15 min away. She wants you (Dr. Jain) to know this has nothing to you but rather the nurses and salesperson fashion accessories doctor did not relay the labs to you in a faster fashion. She said you can call her if you want and she is not angry. Dr. Jain was notified. * Telephone Encounter - Frederick Gurber RN - 09/02/2024 3:10 PM EDT [email or web address] message sent to the pt regarding outpt infusion apt tomorrow at [facility]. documented in this encounter Plan of Treatment Upcoming Encounters Date Type Department Care Team (Late st Contact Info) Description 01/20/2025 3:30 PM EST Office Visit [facility] GASTROENTEROLOGY [address] [place] [address] [place] [address] Robbin Escalante MD [address] [facility] [address] [place] [address] documented as of this encounter Visit Diagnoses Not on filedocumented in this encounter Additional Health Concerns Assessment Noted Time PHQ-2 Depression Total Score: 2 05/28/19 25 4:39 PM EDT documented as of this encounter Care Teams Geophysical Engineer Relationship Specialty Start Date End Date Norma Friedman APRN [address] [place] [address] [place] [address] PCP - General Family Medicine 05/14/24 documented as of this encounter
--- OUTSIDE RECORDS SUMMARY | 2024-10-10 08:30 | XMS_ITS | Encounter Summary ---
[facility] Address [address] [place] [phone] Care Team Providers Care Manager Of Compensation Name Role Phone Ivyashlyn Norma FERNÁNDEZ Primary Care Provider + [phone] Encounter Details Date Type Department Care Team (Late st Contact Info) Description 08/28/2024 Telephone [facility] OBGYN [address] [address] Staci Jain MD [address] [place] [phone] Social History Tobacco Use Types Packs/Day Years Used Date Smoking Tobacco: Never Smokeless Tobacco: Never Alcohol Use Standard Drinks/Week Comments Never 0 (1 standard drink = 0.6 oz pur e alcohol) [facility] Utilities Answer Date Recorded In the past 12 months has [employer], gas, oil, or water [employer] threatened to shut off services in your [...] sit with a family member admitted to [facility] today and does not know if she can make it back for labs (BMP). She does have an appt in [facility] at 10 am tomorrow. Advisedthat it [...] states she was supposed to come into [facility] office today to have labs drawn however sheis currently hung [facility] is wondering if she could just have labs drawn there? documented in this encounter Plan of Treatment Upcoming Encounters Date Type Department Care Team (Late st Contact Info) Description 01/20/2025 3:30 PM EST Office Visit [facility] GASTROENTEROLOGY [address] [facility] [address] [place] [address] Robbin Escalante MD [address] [facility] [address] [place] [address] documented as of this encounter Visit Diagnoses Not on filedocumented in this encounter Additional Health Concerns Assessment Noted Time PHQ-2 Depression Total Score: 2 05/28/19 25 4:39 PM EDT documented as of this encounter Care Teams Manager Of Compensation Relationship Specialty Start Date End Date Norma Friedman APRN [address] [place] [address] [place] [address] PCP - General Family Medicine 05/14/24 documented as of this encounter
--- OUTSIDE RECORDS SUMMARY | 2024-10-10 08:30 | XMS_ITS | Encounter Summary ---
[facility] Address [address] [place] [address] Care Team Providers Care Collarette Separator Name Role Phone Ivyashlyn Norma FERNÁNDEZ Primary Care Provider + [phone] Encounter Details Date Type Department Care Team (Late st Contact Info) Description 08/27/2024 Telephone [facility] OBGYN [address] [place] [address] Staci Jian MD [address] [facility] [address] [place] [address] Social History Tobacco Use Types Packs/Day Years Used Date Smoking Tobacco: Never Smokeless Tobacco: Never Alcohol Use Standard Drinks/Week Comments Never 0 (1 standard drink = 0.6 oz pur e alcohol) [facility] Utilities Answer Date Recorded In the past 12 months has [employer], [employer], oil, or water [employer] threatened to shut off services in [...] hard at all 05/28/2024 [facility] [place] of Occupat ional Health - Occupational Stress [...] Visit [facility] GASTROENTEROLOGY [address] [phone] Robbin Escalante MD [address] [address] documented as of this encounter Visit Diagnoses Diagnosis History of hypokalemia- Primary documented in this encounter Additional Health Concerns Assessment Noted Time PHQ-2 Depression Total Score: 2 05/28/19 25 4:39 PM EDT documented as of this encounter Care Teams Collarette Separator Relationship Specialty Start Date End Date Norma Friedman APRN [address] [place] [address] [place] [address] PCP - General Family Medicine 05/14/24 documented as of this encounter
--- OUTSIDE RECORDS SUMMARY | 2024-10-10 08:30 | XMS_ITS | Encounter Summary ---
[facility] Address [address] [place] [address] Care Team Providers Care Power And Recovery Superintendent Name Role Phone Norma Friedman APRN Primary Care Provider + [phone] Encounter Details Date Type Department Care Team (Late st Contact Info) Description 08/19/2024 Telephone [facility] OBGYN [address] [place] [address] Jacey Mathews, DIRECTOR OF ACQUISITIONS 1700 [facility] [address] [place] [address] Social History Tobacco Use Types Packs/Day Years Used Date Smoking Tobacco: Never Smokeless Tobacco: Never Alcohol Use Standard Drinks/Week Comments Never 0 (1 standard drink = 0.6 oz pur e alcohol) [facility] Utilities Answer Date Recorded In the past 12 months has [employer], oil, or water [employer] threatened to shut off services in [...] all 05/28/2024 [facility] of Occupat ional [facility] [...] Visit [facility] GASTROENTEROLOGY [address] [phone] Robbin Escalante MD [address] [address] documented as of this encounter Visit Diagnoses Not on filedocumented in this encounter Additional Health Concerns Assessment Noted Time PHQ-2 Depression Total Score: 2 05/28/19 25 4:39 PM EDT documented as of this encounter Care Teams Power And Recovery Superintendent Relationship Specialty Start Date End Date Norma Friedman APRN [address] [place] [place] APPIAH [address] PCP - General Family Medicine 05/14/24 documented as of this encounter
--- OUTSIDE RECORDS SUMMARY | 2024-10-10 08:30 | XMS_ITS | Encounter Summary ---
[facility] [address] [place] [address] Care Team Providers Care Porter Marina Name Role Phone Elder Norma FERNÁNDEZ Primary Care Provider + [phone] Encounter Details Date Type Department Care Team (Latest Contact Info) Description 08/19/2024 Travel Social History Tobacco Use Types Packs/Day Years Used Date Smoking Tobacco: Never Smokeless Tobacco: Never Alcohol Use Standard Drinks/Week Comments Never 0 (1 standard drink = 0.6 oz pur e alcohol) [facility] Utilities Answer Date Recorded In the past 12 months has [employer], gas, oil, or water company threatened [...] and heating? Not hard at all 05/28/2024 [facility] [place] of Occupat ional Health - Occupational Stress [...] 2:34 PM EDT Nneka Cross RN * [place] Suicide Severity Rating Scale (Screener/Recent Self-Report) Question Answer Date of Assessment Author 6. Suicidal Behavior (Lifetime) No 2:34 PM EDT Nneka Cross RN documented as of this encounter Plan of Treatment Upcoming Encounters Date Type Department Care Team (Late st Contact Info) Description 01/20/2025 3:30 PM EST Office Visit [facility] GASTROENTEROLOGY [address] [address] Robbin Escalante MD [address] [address] documented as of this encounter Visit Diagnoses Not on filedocumented in this encounter Additional Health Concerns Assessment Noted Time PHQ-2 Depression Total Score: 2 05/28/19 25 4:39 PM EDT documented as of this encounter Care Teams Porter Marina Relationship Specialty Start Date End Date Norma Friedman APRN [address] [place] [place] [address] PCP - General Family Medicine 05/14/24 documented as of this encounter
--- OUTSIDE RECORDS SUMMARY | 2024-10-10 08:30 | XMS_ITS | Encounter Summary ---
Author Organization Healthcare Address [address] [place] [address] Care Team Providers Care Automotive Refinisher Name Role Phone Norma Friedman JOLENE Primary Care Provider [phone] Lizz Trinh RN Unavailable Unavailable Encounter Details Date Type Department Care Team (Late Contact Info) Description 07/22/2024 [facility] Community Practice [address] [place] [address] Sandy Cardenas MD 1700 [facility] [address] [place] [phone] Social History Tobacco Use Types Packs/Day Years [...] Department Care Team (Late Contact Info) Description 10/17/2024 8:30 AM EDT Appointment [facility] Ultrasound [address] [place] [phone] 10/24/2024 8:00 AM EDT Office Visit [facility] [place] [facility] [address], [address] [place] [address] Nneka Block MD [address] [place] [address] 12/25/2024 1:00 PM EST Office Visit [facility] Nephrology, Bone & Mineral Metabolism [address], [address] [place] [address] documented as of this encounter Visit Diagnoses Not on filedocumented in this encounter Care Teams Automotive Refinisher Relationship Specialty Start Date End Date Norma Friedman APRN [address] [place] [phone] PCP - General 09/23/24 Lizz Trinh, RN [facility] Registered Nurse Cardiology 09/26/24 documented as of this encounter
--- OUTSIDE RECORDS SUMMARY | 2024-10-10 08:30 | XMS_ITS | Referral Summary ---
Author Organization [employer] ([place], [place], [place], [place]) Address [address] [place] [address] Care Team Providers Care Gui Developer Name Role Phone Unavailable Primary Care [...]
--- OUTSIDE RECORDS SUMMARY | 2024-10-10 08:30 | XMS_ITS | Encounter Summary ---
[facility] [address] [place] [id number] Care Team Providers Care Head Of Mobile Name Role Phone Ivyashlyn Valentinoseven JOLENE Primary Care Provider + [phone] Encounter Details Date Type Department Care Team (Late st Contact Info) Description 06/26/2024 Results Follow-Up [facility] OBGYN [address] [address] Koby Roberts MD [address] [place] [address] Social History Tobacco Use Types Packs/Day Years Used Date Smoking Tobacco: Never Smokeless Tobacco: Never Alcohol Use Standard Drinks/Week Comments Never 0 (1 standard drink = 0.6 oz pur e alcohol) [facility] Utilities Answer Date Recorded In the past 12 months has [employer], gas, oil, or water [email or web address] threatened to shut off services in your [...] at all 05/28/2024 [facility] [place] of Occupat ional Health - Occupational Stress [...] Visit [facility]STR[facility]ENTEROLOGY [address] [address] Robbin Escalante MD [address] [address] documented as of this encounter Visit Diagnoses Not on filedocumented in this encounter Additional Health Concerns Assessment Noted Time PHQ-2 Depression Total Score: 2 05/28/19 25 4:39 PM EDT documented as of this encounter Care Teams Head Of Mobile Relationship Specialty Start Date End Date Norma Friedman APRN [address] [place] [address] [place] [address] PCP - General Family Medicine 05/14/24 documented as of this encounter
--- OUTSIDE RECORDS SUMMARY | 2024-10-10 08:30 | XMS_ITS ---
Author Organization [facility] Address [address] [place] [address] Care Team Providers Care Dental Tech Name Role Phone Unavailable Primary Care Provider Unavailabl e Transplant Episode Kidney Potential Donor [facility] ([place], [place]) - [facility] Referred on 05/03/2022 Marked as Deferred on 05/04/2022 Reason: Other Kidney CoordinatorNadine Augustin R.N. Phone: N/A Fax: N/A Email: N/A Care Team Name Role Phone Fax Email Nadine Augustin R.N. Kidney Coordinator N/A N/A N/A Events Pre-Donation Referred: 05/03/2022
--- OUTSIDE RECORDS SUMMARY | 2024-10-10 08:30 | XMS_ITS | Clinical Summary ---
Author Organization [facility] Address [address] [place] [address] Care Team Providers Care Insecticide Expert Name Role Phone Unavailable Primary Care Provider Unavailabl e Source Comments [facility] is fully rolled out with thefollowing exceptions:General Clinical Research [facility] Social History Tobacco Use Types Packs/Day [...]
--- OUTSIDE RECORDS SUMMARY | 2024-10-10 08:30 | XMS_ITS | Encounter Summary ---
[facility] [address] [place] [id number] Care Team Providers Care Bobbin Coil Winder Name Role Phone IvyKade goldbergjoseseven JOLENE Primary Care Provider + [phone] Encounter Details Date Type Department Care Team (Late st Contact Info) Description 09/03/2024 Results Follow-Up [facility] OBGYN [address] [place] [address] Staci Jain MD 1700 [facility] [address] [place] [address] Social History Tobacco Use Types Packs/Day Years Used Date Smoking Tobacco: Never Smokeless Tobacco: Never Alcohol Use Standard Drinks/Week Comments Never 0 (1 standard drink = 0.6 oz pur e alcohol) [facility] Utilities Answer Date Recorded In the past 12 months has [employer], gas, oil, or water [employer] threatened to shut off services in [...] Visit [facility] GASTROENTEROLOGY [address] [address] Robbin Escalante MD [address] [address] documented as of this encounter Visit Diagnoses Not on filedocumented in this encounter Additional Health Concerns Assessment Noted Time PHQ-2 Depression Total Score: 2 05/28/19 4:39 PM EDT documented as of this encounter Care Teams Bobbin Coil Winder Relationship Specialty Start Date End Date Norma Friedman APRN [address] [place] [address] [place] [address] PCP - General Family Medicine 05/14/24 documented as of this encounter
--- OUTSIDE RECORDS SUMMARY | 2024-10-10 08:30 | XMS_ITS ---
Author Organization [facility] Address [address] [place] [address] Care Team Providers Care Manager Molecular Name Role Phone Norma Friedman APRN Primary Care Provider Motherhood Connection Status:Engaged (Active) Start date:05/23/2024 Enrollment date:05/23/2024 Case Team Name Relationship Phone Bindu Castellon RN Nurse Navigator Christy Zabala RN(Responsible Staff) Nurse Navig ator Continued Care and Services Coordination
--- OUTSIDE RECORDS SUMMARY | 2024-10-10 08:31 | XMS_ITS | Encounter Summary ---
Author Organization [employer] ([place], [place], [place], [place]) Address [address] [place] [address] Care Team Providers Care Tape Maker Name Role Phone Unavailable Primary Care Provider Unavailabl e Encounter Details Date Type Department Care Team (Late st Contact Info) Description 07/17/2019 Transcribed Document [facility] Family Medicine [address] [place] [address] ProviderEleno MD [address] [place], [place] [phone] Social History Tobacco Use Types Packs/Day Years [...] On: 07/17/2019 19:17 EDT by KARLENE MCKINLEY phlebotomy specialist Process Patient Disposition : AMA/[place]/LWBS KARLENE [...]
--- OUTSIDE RECORDS SUMMARY | 2024-10-10 08:31 | XMS_ITS | Clinical Summary ---
Author Organization [employer] ([place], [place], [place], [place]) Address [address] [place] [address] Care Team Providers Care Core Stacker Name Role Phone Unavailable Primary Care Provider [...]
--- OUTSIDE RECORDS SUMMARY | 2024-10-10 08:31 | XMS_ITS | Encounter Summary ---
[facility] [address] [place] [id number] Care Team Providers Care Phlebotomy Program Coordinator Name Role Phone IvyKade goldbergjoseseven JOLENE Primary Care Provider + [phone] Encounter Details Date Type Department Care Team (Late st Contact Info) Description 09/26/2024 Documentation [facility] [address] [place] [phone] Christy Zabala, RN Social History Tobacco Use [...] Not hard at all 05/28/2024 [facility] [place] of Occupat ional Health - Occupational Stress [...] GED or equivalent No 05/28/2024 Preferred Language Niuean 05/28/2024 PHQ-2 Answer Date Recorded Patient Health [...] Review of chart reveals patient [facility] to [facility] care. Will plan to review chart around EDC for delivery information. documented in this encounter Plan of Treatment Upcoming Encounters Date Type Department Care Team (Late st Contact Info) Description 01/20/2025 3:30 PM EST Office Visit [facility] GASTROENTEROLOGY [address] [phone] Robbin Escalante MD [address] [address] documented as of this encounter Visit Diagnoses Not on filedocumented in this encounter Additional Health Concerns Assessment Noted Time PHQ-2 Depression Total Score: 2 05/28/19 25 4:39 PM EDT documented as of this encounter Care Teams Phlebotomy Program Coordinator Relationship Specialty Start Date End Date Norma Friedman APRN [address] [place] [address] [place] [address] PCP - General Family Medicine 05/14/24 documented as of this encounter
--- OUTSIDE RECORDS SUMMARY | 2024-10-10 08:31 | XMS_ITS | Clinical Summary ---
Author Organization [facility] Address [address] [place] [address] Care Team Providers Care Surgical Coordinator Name Role Phone Norma Friedman APRN Primary Care Provider + [phone] Allergies Active Allergy Reactions Criticality Noted Date [...] Type Department Care Team Description 5 Documentation [facility] LABOR DELIVERY [address] [place] [address] Christy Zabala RN 5 Results Follow-Up [facility] OBGYN [address] [place] [address] Rob Wharton MD 5 Telephone [facility] OBGYN [address]00 [facility] [address] [place] [address] Rob Wharton MD 5 10:00 AM EDT Routine [facility] OBGYN [address] [place] [address] Rob Wharton MD GA: 26w4d 5 Travel 5 Telephone [facility] OBGYN [address] [address] Rob Wharton MD 5 Telephone [facility] OBGYN [address] [place] [address] Rob Wharton MD 5 1:44 PM EDT Anesthesia Event [facility] ENDO SUITES [address] [place] [address] Akash Anguiano MD Lanham, John, CRNA 5 1:33 PM EDT - 5 2:05 PM EDT Surgery [facility] ENDO SUITES [address] [place] [address] Blu Alvarado MD ESOPHAGOGASTRODUODENOSCOPY [86023 (CPT )] 5 1:59 PM EDT - 5 4:28 PM EDT Hospital Encounter [facility] ANTEPARTUM [address] [place] [address] Rob Wharton MD Brunner, Mark I, MD Dysphagia, unspecified type (Primary Dx) Discharge Disposition: Home or Self Care 5 10:15 AM EDT Routine [facility] OBGYN [address] [place] [address] Jacey Mathews, STONE ENGRAVER GA: w 5 Telephone [facility] OBGYN [address] [place] [address] Jacey Mathews, STONE ENGRAVER 5 Travel 5 Patient Outreach [facility] LABOR DELIVERY [address] [place] [address] Christy Zabala RN 5 9:10 AM EDT Routine [facility] OBGYN [address] [facility] [place] [address] [place] [address] Rob Wharton MD GA: 5 8:00 AM EDT Office Visit [facility] MATERNAL MEDICINE [address]00 [facility] [address] [place] [address] Sebastian Larsen MD History of prior with small for gestational age (Primary Dx) 5 7:44 AM EDT - 5 11:59 PM EDT Hospital Encounter [facility] US PER DIAG CTR [address] [place] [address] Kelly Delgado, STONE ENGRAVER care, antepartum, unspecified ; High risk due [...] heating? Not hard at all 05/28/2024 [facility] - [...] Visit [facility] GASTROENTEROLOGY [address]20 [facility] [address] [place] [address] Robbin Escalante MD [address]20 [facility] [address] [place] [address] Health Maintenance Due Date Last Done Comments Annual Gynecologic Pelvic and Breast Exam 1990 PAP SMEAR 2012 ANNUAL PHYSICAL 05/21/2024 COVID-19 Vaccine ( season) 2024 05/04/2022 RSV Vaccine - Adults (1 - Risk [...] NONSTRESS TEST Routine 08/19/2024 4:17 PM EDT [facility] Routine 08/19/2024 3:25 PM [...] 10:02 AM EDT Multigravida in second trimester [facility] DI[facility]NOSTIC C[facility] Routine 07/22/2024 9:10 [...] - 08/30/2024 6:09 AM EDT Performed at: [address] [place] [id number] Unclaimed Property Officer: Kevin Harman MD, Phone: [phone] Patient Fasting: N Rob Wharton MD LAB BLOOD ORDERABLES Final Result [facility] (AMBULATORY) [address] [id number], [facility] [address] [id number], * (ABNORMAL) Comprehensive Metabolic Panel (08/29/2024 11:05 AM EDT) Only the most recent of2 resultswithin the time period is included. [facility] Glucose 72 65 - 99 [...] - 08/30/2024 6:09 AM EDT Performed at: [address] [place] [id number] Unclaimed Property Officer: Kevin Harman MD, Phone: [phone] Patient Fasting: N us Rob Wharton MD LAB BLOOD ORDERABLES Final Result [facility] (AMBULATORY) [address] [place] [address], [place] [phone] [facility] [address] [place] [address], [place] [phone] * (ABNORMAL) POC Urinalysis Dipstick (08/29/2024 10:13 AM EDT) Only the most recent of2 resultswithin the time period is included. Glucose, UA Negative Negative mg/dL [facility]OR[facility] Protein, POC Trace(A) Negative mg/dL [facility] Urine 08/29/2024 10:1 3 AM EDT Rob Wharton MD POINT OF CARE TEST OR DERABLES Final Result [facility] LABORATORY
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 pylori is negative (no organisms are identified) Negative for intestinal metaplasia, dysplasia, or malignancy 08/22/2024 9:18 AM EDT [facility] LABORATORY at 0918 EDT Gross Description 1. Gastric, Antrum. Received in formalin labeled antrum biopsy is a 0.4 x 0.2 x 0.2 cm pink-see soft tissue fragment submitted entirely in a single cassette. HDM 08/22/2024 9:18 AM EDT [facility] Microscopic Description The slides are reviewed and demonstrate histopathologic features supporting the above rendered diagnosis. 08/22/2024 9:18 AM EDT [facility] Tissue Pyloric antrum structure / Unknown 08/20/2024 1:55 PM EDT 08/20/2024 2:14 PM EDT us Blu Alvarado MD PATHOLOGY/CYTOLOGY ORDERABLES Final Result [facility] LAB[facility]
[address] [place] [address], [place] [phone] * Upper GI Endoscopy (08/20/2024 1:09 PM EDT) us Blu Alvarado MD INTERFACE NEEDS Final Result * (ABNORMAL) Basic Metabolic Panel (08/20/2024 5:25 AM EDT) [facility] Glucose 84 65 - 99 mg/dL 08/20/2024 6:13 AM T [facility] BUN 2.3(L) 6.0 - 20.0 mg/dL 08/20/2024 6:13 AM [facility] Creatinine 0.51(L) 0.57 - 1.00 mg/dL 08/20/2024 6:13 AM EDT [facility] Sodium 139 136 - 145 mmol/L 08/20/2024 6:13 AM EDT [facility] Potassium 3.5 3.5 - 5.2 mmol/L 08/20/2024 6:13 AM T [facility] Chloride 109(H) 98 - 107 mmol/L 08/20/2024 6:13 [facility] CO2 23.5 22.0 - 29.0 mmol/L 08/20/2024 6:13 AM T [facility] Calcium 7.8(L) 8.6 - 10.5 mg/dL 08/20/2024 6:13 AM T [facility] BUN/Creatinine Ratio 4.5(L) 7.0 - 25.0 08/20/2024 6:13 AM [facility] Anion Gap 6.5 5.0 - 15.0 mmol/L 08/20/2024 6:13 AM [facility] eGFR 126.6 >60.0 mL/min/1.7 3 08/20/2024 6:13 AM T [facility] Blood Venipuncture / Unknown 08/20/2024 5:25 AM EDT 08/20/2024 5:46 AM T [facility] LABORATORY - 08/20/2024 6:13 AM [...] ORDERABLES Final Resu lt Performing Organization Address [facility]/ZIP Co de Phone Number [facility] LABORATORY
[address] [place] [address], * (ABNORMAL) Potassium (08/19/2024 8:53 PM EDT) Potassium 2.7(L) 3.5 - 5.2 mmol/L 08/19/2024 9:20 PM EDT [facility] Blood Venipuncture / Unknown 08/19/2024 8:53 PM EDT 08/19/2024 9:04 PM EDT Kt Fan DO LAB BLOOD ORDERABLES Final Result Performing Organization Address [facility] Co de Phone Number [facility] LABORATORY
[address] [place] [address], * ABO RH Specimen Verification (08/19/2024 4:34 PM EDT) ABO Type O 08/19/2024 7:39 PM EDT [facility] BB LABORATORY RH type Positive 08/19/2024 7:39 PM EDT [facility] BB LABORATORY Blood Venipuncture / Unknown 08/19/2024 4:34 PM EDT 08/19/2024 4:53 PM EDT Rob Wharton MD BLOOD BANK TEST ORDER FRANCO Final Result Performing Organization Address [facility] Co de Phone Number [facility] BB LABORATORY
[address] [place] [address], * [facility] (08/19/2024 3:25 PM EDT) Only the most recent of2 resultswithin the time period is included. Anatomical Region Laterality Modality Ultrasound 08/19/2024 3:09 PM EDT Narrative 08/19/2024 4:54 PM EDT PAT NAME: CAROLE GIRARD MED REC#: [id number] DA: 1990 PAT GEND: F PAT TYPE: E EXAM TRAVIS: [id number] REF PHYS ROB WHARTON Comparison Studies The [...] EFW (oz) 9 oz EFW by: Hadlock (VGL-ET-LK-FL) Extended Cav. septi pel. tr 4.7 mm Specialties Operator 3.8 mm CM 7.5 mm 84% [...] Heart / Thorax 3-vessel view: Appears normal 6-vrylwj-ganlcbg view: Appears normal Stomach: Appears normal Kidneys: [...] in 4wks for growth. Coding ======= Description: 19289-53 Follow Up Assembling Motor Builder: RT Annetta Hartmann , [facility] Physician: Jo Chappell MD Electronically signed by: Jo Chappell MD at: 16:54 Procedure Note Jo Chappell MD - 08/19/2024 PAT NAME: CAROLE GIRARD MED REC#: [id number] DA: [id number] PAT GEND: F PAT TYPE: E EXAM TRAVIS: [id number] REF PHYS ROB WHARTON Comparison Studies The findings of this study are compared to the prior ultrasound studydated 07/22/24 Patient Status Inpatient Indication ======== History of c/s x1. History of . Vaginal bleeding. Maternal Assessment Jozocz878 cm Height (ft)5 ft Height (in)4 in Tljjke34 kg Weight (lb)158 lb BMI27.31 kg/m Method ======= Transabdominal ultrasound examination. View: Limited by patient bodyhabitus ========= Love . Number of fetuses: 1 Dating ====== Method of dating:based on stated DUSTY GA by prior opgifvhzza96 w + 1 d DUSTY by prior assessment:12/01/2024 Ultrasound examination on:08/19/2024 GA by U/S based upon:AC, BPD, Femur, HC GA by U/S24 w + 2 d DUSTY by U/S:12/07/2024 Previous dating:based on stated DUSTY, selected on 07/22/2024 Agreed DUSTY of previous datin12/01/2024 Assigned:based on stated DUSTY, selected on 08/19/2024 Assigned GA25 w + 1 d Assigned DUSTY:12/01/2024 [id number] d Biometry Standard BPD57.6 mm 23w 4d 5% Hadlock OFD81.6 mm 26w 4d 88% Jamal HC225.7 mm 24w 4d 13% Hadlock Cerebellum tr28.9 mm 25w 2d 62% Hill AC194.9 mm 24w 1d 15% Hadlock Femur44.9 mm 24w 6d 27% Hadlock Drxyqwq24.3 mm 25w 3d 50% Jamal HC / AC1.16 DCH236 g 24w 2d 16% Hadlock EFW (lb)1 lb EFW (oz)9 oz EFW by:Hadlock (GWO-CI-QL-FL) Extended Cav. septi pel. tr4.7 mm Vp3.8 mm CM7.5 mm 84% Nicolaides Head / Face / Neck Cephalic index0.71 <1% Nicolaides Extremities / Bony Struc FL / BPD0.78 FL / HC0.20 FL / AC0.23 Other Structures NOH050 bpm General Evaluation Cardiac activity present. FHR [...] normal Heart / Thorax 3-vessel view:Appears normal 6-dyyjyp-llzzhxb view:Appears normal Stomach:Appears normal Kidneys:Appears normal Bladder:Appears normal Gender:female Wants to know gender:yes Maternal Structures Uterus / Cervix Cervix:Visualized Approach:Transabdominal Cervical ummxvm46.9 mm Doppler Arterial Umbilical A PI1.01 32% [...] office in 4wks for growth. Coding ======= Description:01871-64 Follow Up Assembling Motor Builder: RT Mary Kate R , [facility] Physician: Jo Chappell MD Electronically signed by: Jo Chappell MD at: 16:54 us Kt Fan DO [facility] US ORDERABLES Final Res ult * Urinalysis, Microscopic Only - Urine, Clean Catch (08/19/2024 3:02 PM EDT) RBC, UA 0-2 None Seen, 0-2 /HPF 08/19/2024 3:33 PM EDT [facility] WBC, UA 0-2 None Seen, 0-2 /HPF 08/19/2024 3:33 PM EDT [facility] Bacteria, UA None Seen None Seen /HPF 08/19/2024 3:33 PM EDT [facility] Squamous Epithelial Cells, UA 0-2 None Seen, 0-2 /HPF 08/19/2024 3:33 PM EDT [facility] Hyaline Casts, UA None Seen None Seen /LPF 08/19/2024 3:33 PM EDT [facility] Methodology Automated Microscopy 08/19/2024 3:33 PM EDT [facility] Urine Urine specimen obtained by clean catch procedure / Unknown Collection / Unknown 08/19/2024 3:02 PM EDT 08/19/2024 3:13 PM EDT Kt Fan DO URINE ORDERABLES Final Resu lt [facility]
[address] [place] [address], * (ABNORMAL) Urinalysis With Microscopic If Indicated (No Culture) - Urine, Clean Catch (08/19/2024 3:02 PM EDT) Color, UA Yellow Yellow, Straw 08/19/2024 3:33 PM EDT [facility] Appearance, UA Clear Clear 08/19/2024 3:33 PM EDT [facility] pH, UA >=9.0(H) 5.0 - 8.0 08/19/2024 3:33 PM EDT [facility] Specific [place], UA 1.018 1.005 - 1.030 08/19/2024 3:33 PM EDT [facility] Glucose, UA Negative Negative 08/19/2024 3:33 PM EDT [facility] Ketones, UA 15 mg/dL (1+)(A) Negative 08/19/2024 3:33 PM EDT [facility] Bilirubin, UA Negative Negative 08/19/2024 3:33 PM EDT [facility] Blood, UA Negative Negative 08/19/2024 3:33 PM EDT [facility] Protein, UA 30 mg/dL (1+)(A) Negative 08/19/2024 3:33 PM EDT [facility] Leuk Esterase, UA Negative Negative 08/19/2024 3:33 PM EDT [facility] Nitrite, UA Negative Negative 08/19/2024 3:33 PM EDT [facility] Urobilinogen, UA 1.0 E.U./dL 0.2 - 1.0 E.U./dL 08/19/2024 3:33 PM EDT [facility] Urine Urine specimen obtained by clean catch procedure / Unknown Collection / Unknown 08/19/2024 3:02 PM EDT 08/19/2024 3:13 PM EDT Kt Fan DO URINE ORDERABLES Final Resu lt [facility]
[address] [place] [address], * (ABNORMAL) CBC Auto Differential (08/19/2024 3:02 PM EDT) WBC 9.19 3.40 - 10.80 10*3/mm3 08/19/2024 3:23 PM EDT [facility] RBC 3.58(L) 3.77 - 5.28 10*6/mm3 08/19/2024 3:23 PM EDT [facility] Hemoglobin 10.5(L) 12.0 - 15.9 g/dL 08/19/2024 3:23 PM EDT [facility] Hematocrit 31.4(L) 34.0 - 46.6 % 08/19/2024 3:23 PM EDT [facility] MCV 87.7 79.0 - 97.0 fL 08/19/2024 3:23 PM EDT [facility] MCH 29.3 26.6 - 33.0 pg 08/19/2024 3:23 PM EDT [facility] MCHC 33.4 31.5 - 35.7 g/dL 08/19/2024 3:23 PM EDT [facility] RDW 13.4 12.3 - 15.4 % 08/19/2024 3:23 PM EDT [facility] RDW-SD 42.4 37.0 - 54.0 fl 08/19/2024 3:23 PM EDT [facility] MPV 12.0 6.0 - 12.0 fL 08/19/2024 3:23 PM EDT [facility] Platelets 241 140 - 450 10*3/mm3 08/19/2024 3:23 PM EDT [facility] Neutrophil % 66.8 42.7 - 76.0 % 08/19/2024 3:23 PM EDT [facility] Lymphocyte % 24.4 19.6 - 45.3 % 08/19/2024 3:23 PM EDT [facility] Monocyte % 7.6 5.0 - 12.0 % 08/19/2024 3:23 PM EDT [facility] Eosinophil % 0.7 0.3 - 6.2 % 08/19/2024 3:23 PM EDT [facility] Basophil % 0.2 0.0 - 1.5 % 08/19/2024 3:23 PM EDT [facility] Immature Grans % 0.3 0.0 - 0.5 % 08/19/2024 3:23 PM EDT [facility] Neutrophils, Absolute 6.14 1.70 - 7.00 10*3/mm3 08/19/2024 3:23 PM EDT [facility] Lymphocytes, Absolute 2.24 0.70 - 3.10 10*3/mm3 08/19/2024 3:23 PM EDT [facility] Monocytes, Absolute 0.70 0.10 - 0.90 10*3/mm3 08/19/2024 3:23 PM EDT [facility] Eosinophils, Absolute 0.06 0.00 - 0.40 10*3/mm3 08/19/2024 3:23 PM EDT [facility] Basophils, Absolute 0.02 0.00 - 0.20 10*3/mm3 08/19/2024 3:23 PM EDT [facility] Immature Grans, Absolute 0.03 0.00 - 0.05 10*3/mm3 08/19/2024 3:23 PM EDT [facility] nRBC 0.0 0.0 - 0.2 /100 WBC 08/19/2024 3:23 PM EDT [facility] Blood Line / Unknown 08/19/2024 3: 02 PM EDT 08/19/2024 3:10 PM EDT Kt Fan DO LAB BLOOD ORDERABLES Final Result Performing Organization Address City/[facility]/ZIP Co de Phone Number [facility]
[address] [place] [address], * Protein / Creatinine Ratio, Urine - [...] Resu lt [facility]OR[facility]
[address] [place] [address], * Type & Screen (08/19/2024 3:02 PM EDT) ABO Type O 08/19/2024 3:51 PM EDT [facility] LABORATORY RH type Positive 08/19/2024 3:51 PM EDT [facility] LAB[facility] Antibody Screen Negative 08/19/2024 3:51 PM EDT [facility] T&S Expiration Date 08/22/2024 11:59:59 PM 08/19/2024 3:51 PM EDT [facility] Blood Line / Unknown 08/19/2024 3 :02 PM EDT 08/19/2024 3:15 PM EDT Kt Fan BLOOD BANK TEST ORDERABLES Edited Result - Final Performing Organization Address City/[facility]/ZIP Co de Phone Number [facility] LABORATORY
[address] [place] [address], [place] [phone] * (ABNORMAL) Magnesium (08/19/2024 3:02 PM EDT) Magnesium 1.5(L) 1.6 - 2.6 mg/dL 08/19/2024 5:12 PM EDT [facility] Blood Line / Unknown 08/19/2024 3: 02 PM EDT 08/19/2024 3:10 PM EDT Kt Fan LAB BLOOD ORDERABLES Final Result [facility]
[address] [place] [address], [place] [phone] * Lipase (08/19/2024 3:02 PM EDT) Lipase 13 13 - 60 U/L 08/19/2024 3:36 PM EDT [facility] Blood Line / Unknown 08/19/2024 3: 02 PM EDT 08/19/2024 3:10 PM EDT Kt Fan DO LAB BLOOD ORDERABLES Final Result [facility]
[address] [place] [address], * Amylase (08/19/2024 3:02 PM EDT) Amylase 73 28 - 100 U/L 08/19/2024 3:36 PM EDT [facility] Blood Line / Unknown 08/19/2024 3: 02 PM EDT 08/19/2024 3:10 PM EDT Kt Fan DO LAB BLOOD ORDERABLES Final Result Performing Organization Address City/[facility]/ZIP Co de Phone Number [facility]
[address] [place] [address], * Hepatitis C Antibody (04/12/2024) Hep C Virus Ab negative Blood Historical Provider LAB BLOOD ORDERABLES Lena l Result from Last 3 Months or Most Recently Relevant to Health Maintenance Insurance [facility] Care Teams Surgical Coordinator Relationship Specialty Start Date End Date Norma Friedman APRN [address] [place] G3 RAFAELA APPIAH [id number] PCP - General Family Medicine 05/14/24
--- OUTSIDE RECORDS SUMMARY | 2024-10-10 08:32 | XMS_ITS | Encounter Summary ---
Author Organization [facility] Address [address] [id number] Care Team Providers Care Slabber Name Role Phone Unavailable Primary Care Provider Unavailabl e Encounter Details Date Type Department Care Team (Late st Contact Info) Description 09/17/2024 Telephone Medical Office Building Obstetrics and Gynecology [address] [facility], [address] [place] [address] Josefina Shay RN [facility] [address] [place] [address] Social History Tobacco Use Types Packs/Day Years [...] recently had a full Nephrology work-up at [facility] that was negative and was [...] Description 10/17/2024 8:30 AM EDT Appointment [facility] Ultrasound [address] [place] [address] 10/24/2024 8:00 AM EDT Office Visit [facility] [place] [address] [facility], [address] [place] [address] Nneka Block MD [address] [place] [address] 12/25/2024 1:00 PM EST Office Visit [facility] Nephrology, Bone & Mineral Metabolism [address] [facility], [address] [place] [address] documented as of this encounter Visit Diagnoses Not on filedocumented in this encounter
--- OUTSIDE RECORDS SUMMARY | 2024-10-10 08:32 | XMS_ITS | Encounter Summary ---
Author Organization Healthcare Address [address] [place] [address] Care Team Providers Care Leather Crafter Name Role Phone Norma Friedman DIRECTOR OF MARKET RESEARCH Primary Care Provider [phone] Lizz Trinh RN Unavailable Unavailable Encounter Details [...] drinks on one occasion? Never 09/23/2024 [place] Depression Scale Answer Date Recorded [place] Depression Scale Total 0 09/23/2024 The thought [...] [facility] Ultrasound [address] [place] [address] 10/24/2024 8:00 AM EDT Office Visit [facility] [place] [address] [facility], [address] [place] [address] Nneka Block MD [address] [place] [address] 12/25/2024 1:00 PM EST Office Visit [facility] [place] Nephrology, Bone & Mineral Metabolism [address] [facility], [address] [place] [address] documented as of this encounter Visit Diagnoses Not on filedocumented in this encounter Additional Health Concerns Assessment Noted Time A fall risk assessment has been complete d for the patient 09/26/2024 8:15 AM EDT A Body Mass Index follow-up plan has been documented for the patient 09/27/2024 10:22 AM EDT documented as of this encounter Care Teams Leather Crafter Relationship Specialty Start Date End Date Norma Friedman APRN [address] [place] [address] PCP - General 09/23/24 Lizz Trinh, RN [facility] Registered Nurse Cardiology 09/26/24 documented as of this encounter
--- OUTSIDE RECORDS SUMMARY | 2024-10-10 08:32 | XMS_ITS | Encounter Summary ---
Author Organization Healthcare Address [address] [place] [address] Care Team Providers Care Edge Kitter Name Role Phone Unavailable Primary Care Provider Unavailabl e Reason for Referral * Consultation (Routine) - Closed Specialty Diagnoses / Procedures Referred By Contac t Referred To Contact Nephrology Diagnoses Hypokalemia Liborio Weller MD [address] [facility] [address] [place] [address] Phone: tel: fax: [facility] Nephrology, Bone & Mineral Metabolism [address] [facility], [address] [place] [address] Phone: tel: fax: Referral ID Status Reason Start Date Expiration Date V isits Requested Visits Authorized [id number] Closed Specialty Services Required 09/14/2024 03/16/2026 1 1 Scheduling Instructions Severe hypokalemia in the setting of Encounter Details Date Type Department Care Team (Late st Contact Info) Description 09/14/2024 Telephone [facility] Obstetrics & Gynecology [address] [place] [address] Susi Wren MD [address] [place] [address] Social History Tobacco Use Types [...] had an outpatient workup with Nephrology at [facility] that was negative, she was not [...] System [facility] Ultrasound [address] [place] [address] 10/24/2024 8:00 AM EDT Office Visit [facility] [place] [address] [facility], [address] [place] [address] Nneka Block MD [address] [place] [address] 12/25/2024 1:00 PM EST Office Visit [facility] [place] Nephrology, Bone & Mineral Metabolism [address] [facility], [address] [place] [address] Scheduled Referrals Name Type Priority Associated Diagnoses Order Schedule Ambulatory referral to Nephrology Clinic Outpatient Referral Routine Hypokalemia 1 Occurrences starting 09/14/2024 until 03/18/2026 documented as of this encounter Visit Diagnoses Diagnosis Hypokalemia- Primary Hypopotassemia documented in this encounter
--- OUTSIDE RECORDS SUMMARY | 2024-10-10 08:32 | XMS_ITS | Encounter Summary ---
Author Organization Healthcare Address [address] [place] [address] Care Team Providers Care Residential Collections Name Role Phone Unavailable Primary Care Provider Unavailabl e Encounter Details Date Type Department Care Team (Late st Contact Info) Description 09/17/2024 Telephone [facility] Nephrology, Bone & Mineral Metabolism [address], [address] [place] [address] Sherley Gold, COOKER SYRUP GS - 7 MAIN MEDICAL-SURGICAL Social History [...] Info) Description 10/17/2024 8:30 AM EDT Appointment [facility] Ultrasound [address], [address]nd [place] [address] 10/24/2024 8:00 AM EDT Office Visit [facility] [place] [address], [address] [place] [address] Nneka Block MD [address] [place] [address] 12/25/2024 1:00 PM EST Office Visit [facility] Nephrology, Bone & Mineral Metabolism [address], [address] [place] [address] documented as of this encounter Visit Diagnoses Not on filedocumented in this encounter
--- OUTSIDE RECORDS SUMMARY | 2024-10-10 08:32 | XMS_ITS | Encounter Summary ---
Author Organization Healthcare Address [address] [place] [address] Care Team Providers Care Applications Sales Representative Name Role Phone Norma Friedman APRN Primary Care Provider +1- [phone] Encounter Details Date Type Department Care Team [...] more drinks on one occasion? Never 09/23/2024 Enfield Depression Scale Answer Date Recorded Enfield Depression Scale Total 0 09/23/2024 The thought [...] Description 10/17/2024 8:30 AM EDT Appointment [facility] Ultrasound [address]nd [place] [address] 10/24/2024 8:00 AM EDT Office Visit [facility] [place] [address], [address] [place] [address] Nneka Block MD [address] [place] [address] 12/25/2024 1:00 PM EST Office Visit [facility] Nephrology, Bone & Mineral Metabolism [address] [facility], [address] [place] [address] documented as of this encounter Visit Diagnoses Not on filedocumented in this encounter Additional Health Concerns Assessment Noted Time A fall risk assessment has been complete d for the patient 09/25/2024 3:05 PM EDT A Body Mass Index follow-up plan has been documented for the patient 10/05/2024 8:54 PM EDT documented as of this encounter Care Teams Applications Sales Representative Relationship Specialty Start Date End Date Norma Friedman APRN [address] [place] [address] PCP - General 09/23/24 documented as of this encounter
--- OUTSIDE RECORDS SUMMARY | 2024-10-10 08:32 | XMS_ITS | Clinical Summary ---
Author Organization Healthcare Address [address] [place] [address] Care Team Providers Care Ampoule Examiner Name Role Phone Norma Friedman JOLENE Primary Care Provider +1- [phone] Lizz Trinh RN Unavailable Unavailable Allergies Active [...] dermatitis with skin contact Medications Prenat MV-Min w/Eu-Doknqn-DOO ( COMPLETE PO) 019 Active potassium chloride [...] chew. 60 tablet 1 025 2024 Discontinued Gzcmxina-Wfp-Yq-F A ( 1 + IRON PO) 2024 Discontinued Active Problems Problem Noted Date Diagnosed Date Hypokalemia 09/25/2024 Estimated Date of Delivery Comme nts Yes 12/01/2024 Encounters Date Type Department Care Team Description 09/26/2024 9:06 AM EDT - 09/26/2024 11:59 PM EDT Hospital Encounter [facility] Cardiac Diagnostic Testing Medical Office Building Echo Lab [address] [address] [facility], [address] [place] [address] Palpitations; Syncope and collapse Discharge Disposition: Home or Self Care 09/26/2024 8:00 AM EDT Office Visit [facility] [place] [address] [address] [facility] [address], [address] [place] [address] Nneka Block MD Syncope and collapse (Primary Dx); Atrial fibrillation, unspecified type (CMS/HCC); Palpitations 09/26/2024 Travel 09/25/2024 2:20 PM EDT Office Visit [facility] Nephrology, Bone & Mineral Metabolism [address] [address] [facility] [address], [address] [place] [address] Bill Patrick MD Hypokalemia (Primary Dx) 09/25/2024 Travel 09/23/2024 10:00 AM EDT Office Visit [facility] Obstetrics and Gynecology [address] [address] [facility], [address] [place] [address] Liborio Weller MD Supervision of high risk , antepartum (Primary Dx); Cardiac arrhythmia, unspecified cardiac arrhythmia type 09/23/2024 Travel 09/17/2024 Telephone [facility] Nephrology, Bone & Mineral Metabolism [address] [facility] [address] [facility], [address] [place] [address] Sherley Gold CNA 09/17/2024 Telephone [facility] Obstetrics and Gynecology [address] [address] [facility] [address], [address] [place] [address] Josefina Shay RN 09/14/2024 Telephone [facility] Obstetrics & Gynecology [address] [place] [address] Susi Wren MD 07/22/2024 [facility] [address] [place] [address] Staci Jain MD History of proteinuria syndrome (Primary Dx); care, subsequent , second trimester 07/22/2024 [facility] [address] [place] [address] Sandy Cardenas MD from Last 3 Months [...] more drinks on one occasion? Never 09/23/2024 Erwin Depression Scale Answer Date Recorded Erwin Depression Scale Total 0 09/23/2024 The thought [...] 10/17/2024 8:30 AM EDT Appointment [facility] Ultrasound [address]nd [place] [address] 10/24/2024 8:00 AM EDT Office Visit [facility] [place] [address] [address] [facility], [address] [place] [address] Nneka Block MD [address] [place] [address] 12/25/2024 1:00 PM EST Office Visit [facility] Nephrology, Bone & Mineral Metabolism [address] [address] [facility], [address] [place] [address] Health Maintenance Due Date Last Done Comments [facility]-/Child/Adol SDOH Screenings 1991 [facility]-Varicella Vaccines (1 of 2 - 13+ 2-dose series) 2004 [facility]- SDOH Screenings 2009 [facility]-Adult SDOH Screenings 2009 [facility]-Hepatitis B Vaccines (1 of 3 - 19+ 3-dose series) 2010 [facility]-Pap Smear 2012 [facility]-Cervical Cancer Screening 2021 [facility]-HPV/Cotest 2021 [id number]-20 Vaccine (2 - 2024- season) 2024 05/04/2022 [facility]-Influenza Vaccine (#1) 2024 03/30/2016, [facility]-RSV [...] Chloride, Urine 25 mmol/L 2:03 PM EDT [facility] Urine Urine specimen obtained by clean catch procedure / Unknown Non-blood Collection / Unknown 09/26/2024 10:07 AM EDT 09/26/2024 10:07 AM EDT us Bill Patrick MD LAB URINE ORDERABLES Final Resul t Performing Organization Address City/[facility]/ZIP Co de Phone Number [facility] [address] [place] [address] * Protein, Random, Urine with Creatinine (09/26/2024 10:03 AM EDT) Protein, Urine 26 mg/dL 09/26/2024 12:08 PM EDT [facility] Creatinine, Urine 199 mg/dL 09/26/2024 12:08 PM EDT [facility] Protein/Creati nine Ratio 0.1 mg/mg Creat 09/26/2024 12:08 PM EDT [facility] Urine Urine specimen obtained by clean catch procedure / Unknown Non-blood Collection / Unknown 09/26/2024 10:03 AM EDT 09/26/2024 10:04 AM EDT us Bill Patrick MD LAB URINE ORDERABLES Final Resul t Performing Organization Address City/[facility]/ZIP Co de Phone Number [facility] [address] [place] [address] * Sodium, urine, random (09/26/2024 10:02 AM EDT) Sodium, Urine 110 mmol/L 09/26/2024 11:55 AM EDT [facility] Urine Urine specimen obtained by clean catch procedure / Unknown Non-blood Collection / Unknown 09/26/2024 10:02 AM EDT 09/26/2024 10:02 AM EDT us Bill Patrick MD LAB URINE ORDERABLES Final Resul t Performing Organization Address City/State/[facility] Co de Phone Number [facility]ARE [facility] [address] [place] [address] * Potassium, urine, random (09/26/2024 10:02 AM EDT) Potassium, Urine 43 mmol/L 09/26/2024 11:55 AM EDT [facility] Urine Urine specimen obtained by clean catch procedure / Unknown Non-blood Collection / Unknown 09/26/2024 10:02 AM EDT 09/26/2024 10:02 AM EDT us Bill Patrick MD LAB URINE ORDERABLES Final Resul t Performing Organization Address [facility] de Phone Number [facility] [address] [place] [address] * Osmolality, urine (09/26/2024 10:02 AM EDT) Osmolality, Urine 404 50 - 1,200 mOsm/kg 09/26/2024 1:48 PM EDT [facility] Urine Urine specimen obtained by clean catch procedure / Unknown Non-blood Collection / Unknown 09/26/2024 10:02 AM EDT 09/26/2024 10:02 AM EDT us Bill Patrick MD LAB URINE ORDERABLES Final Resul t Performing Organization Address [facility] de Phone Number [facility] [address] [place] [address] * SSA 52 and 60 (Ro) (YARA) Antibodies, IgG (09/26/2024 9:32 AM EDT) SSA-52 (RO52) (YARA) Antibody, IgG 2 0 - 40 AU/mL 09/28/2024 5:47 PM EDT [facility] (BEAKER) SSA-60 (RO60) (YARA) Antibody, IgG 0 0 - 40 AU/mL 09/28/2024 5:47 PM EDT [facility] (BEAKER) Serum 09/26/2024 9:32 AM EDT 09/26/2024 9:32 AM EDT Narrative [facility] (TERRI) - 09/28/2024 5:47 PM EDT INTERPRETIVE [...] AU/mL or Greater .......... Positive Performed By: [facility] [address] [place] [id number] Hole Digger: Brandon Bell MD, PhD CLIA Number: [id number] Bill Patrick MD LAB REF LAB BLOOD AND FLUID ORD Final Result [facility] CRAZE) [address] [id number] * SSB (LA) (YARA) ANTIBODY, IGG (09/26/2024 9:32 AM EDT) SSB (LA) (YARA) Antibody, IgG 0 0 - 40 AU/mL 09/28/2024 5:47 PM EDT [facility] [employer]) Serum Venous blood specimen / Unknown 09/26/2024 9:32 AM EDT 09/26/2024 9:32 AM EDT Narrative [facility] [employer]) - 09/28/2024 5:47 PM EDT INTERPRETIVE [...] (PSS) also have this antibody. Performed By: [facility] [address] [place] [address] Hole Digger: Brandon Bell MD, PhD CLIA Number: [id number] us Bill Patrick MD LAB BLOOD ORDERABLES Final Resul t Performing Organization Address City/[facility]/ZIP Co de Phone Number [facility]) [address] [place] [address] * Rheumatoid factor, plasma (09/26/2024 9:32 AM EDT) Rheumatoid Factor, Plasma <10 <14 IU/mL 09/26/2024 1:49 PM EDT [facility] Blood Venous blood specimen / Unknown Venipuncture / Unknown 09/26/2024 9:32 AM EDT 09/26/2024 9:32 AM EDT us Bill Patrick MD LAB BLOOD ORDERABLES Final Resul t [facility] [address] [place] [address] * Antinuclear Antibody (JEFFERY), HEp-2, IgG (09/26/2024 9:32 AM EDT) JEFFERY INTERPRETIVE COMMENT See Note 09/28/2024 5:13 PM EDT [facility] ([employer]) Anti Nuc Ab Screen <1:80 <1:80 09/28/2024 5:13 PM EDT [facility] ([employer]) Blood Venous blood specimen / Unknown Venipuncture / Unknown 09/26/2024 9:32 AM EDT 09/26/2024 9:32 AM EDT Narrative [facility] JULIEN SORENSEN) - 09/28/2024 5:13 PM EDT INTERPRETIVE INFORMATION: [...] rings, and cytoplasmic speckled patterns. Performed By: [facility] [address] [place] [address] Hole Digger: Brandon Bell MD, PhD CLIA Number: [id number] us Bill Patrick MD LAB BLOOD ORDERABLES Final Resul t [facility] (TERRI) [address] [id number] * (ABNORMAL) Osmolality (09/26/2024 9:32 AM EDT) Osmolality, Serum 273(L) 275 - 295 mOsm/Kg 09/26/2024 2:10 PM EDT [facility] Blood Venous blood specimen / Unknown Venipuncture / Unknown 09/26/2024 9:32 AM EDT 09/26/2024 9:32 AM EDT us Bill Patrick MD LAB BLOOD ORDERABLES Final Resul t [facility] [address] [place] [address] * (ABNORMAL) Renal function panel (09/26/2024 9:32 AM EDT) Glucose, Plasma 87 74 - 99 mg/dL 09/26/2024 12:24 PM EDT [facility] BUN, Plasma 5(L) 7 - 21 mg/dL 09/26/2024 12:24 PM EDT [facility] Creatinine, Plasma 0.72 0.60 - 1.10 mg/dL 09/26/2024 12:24 PM EDT [facility] BUN/Creatinine Ratio 7 09/26/2024 12:24 PM EDT [facility] Sodium, Plasma 135(L) 136 - 145 mmol/L 09/26/2024 12:24 PM EDT [facility] Potassium, Plasma 3.1(L) 3.6 - 4.9 mmol/L 09/26/2024 12:24 PM EDT [facility] Chloride, Plasma 95(L) 97 - 107 mmol/L 09/26/2024 12:24 PM EDT [facility] CO2, Plasma 26 22 - 29 mmol/L 09/26/2024 12:24 PM EDT [facility] Anion Gap 14 6 - 16 mmol/L 09/26/2024 12:24 PM EDT [facility] Total Calcium, Plasma 9.4 8.9 - 10.2 mg/dL 09/26/2024 12:24 PM EDT [facility] Phosphorus, Plasma 3.5 2.5 - 4.5 mg/dL 09/26/2024 12:24 PM EDT [facility] Albumin, Plasma 3.6 3.5 - 5.2 g/dL 09/26/2024 12:24 PM EDT [facility] eGFRcr 113.4 mL/min/1.7 3m*2 09/26/2024 12:24 PM EDT [facility] Comment:Reported eGFRcr in m L/min/1.73m2 is based the CKD-EPI 2020 equation that does not use a race coefficient. Blood Venous blood specimen / Unknown Venipuncture / Unknown 09/26/2024 9:32 AM EDT 09/26/2024 9:32 AM EDT Bill Patrick MD LAB BLOOD ORDERABLES Final Resul t Performing Organization Address [facility] Co de Phone Number [facility] [address] [place] [address] * ECG Adult (Now - Performed in your clinic) (09/26/2024 8:21 AM EDT) EKG DIAGNOSIS CLASS Normal MUSE ECG Ventricular Rate 84 BPM MUSE ECG Atrial Rate 84 BPM MUSE ECG KS Interval 148 ms MUSE ECG QRSD Interval 74 ms MUSE ECG QT Interval 374 ms MUSE ECG QTC Interval 441 ms MUSE ECG P Moxee 60 degrees MUSE ECG R Moxee 36 degrees MUSE ECG T Wave Moxee 55 degrees MUSE ECG Diagnosis Normal sinus rhythm with sinus arrhythmia MUSE ECG Diagnosis Normal ECG MUSE ECG Diagnosis MUSE ECG Diagnosis Confirmed by Abad South ([id number]) on 09/26/2024 12:13:59 PM MUSE ECG 09/26/2024 8:21 AM EDT 09/26/2024 12:13 PM EDT Nneka Block MD ECG ORDERABLES Final Resu lt Performing Organization Address [facility] de Phone Number MUSE ECG * (ABNORMAL) POCT Urinalysis Dipstick (09/23/2024 10:54 AM EDT) POCT Urine Color Yellow POCT Urine Clarity Clear POCT Glucose Urine Negative Negative mg/dL POCT Bilirubin, Urine Small(A) Negative POCT Ketones, Urine 40(A) Negative mg/dL POCT Specific [place], Urine 1.015 POCT Blood, Urine Negative Negative POCT pH, Urine >=9.0(A) 5.0 to 8.0 POCT Protein, Urine 100(A) Negative mg/dL POCT Urobilinogen, Urine 0.2 0.2, 1 E.U./dL POCT Nitrite, Urine Negative Negative POCT Leukocyte Esterase, Urine Negative Negative Test Strip Lot Number [id number] Test Strip Lot Expiration 07/2025 Urine Urine [...] ORDERABLES Fin al Result Performing Organization Address City/[facility] Co de Phone Number [facility] * Hepatitis C Antibody (01/22/2019 9:57 AM EST) Hepatitis C Antibody NEGATIVE Reference Range: Negative [facility] 01/22/2019 9:57 AM EST 01/22/2019 12:12 PM EST Pradip Damico APRN, CNM LAB BLOOD ORDERABLES Fin al Result Performing Organization Address City/[facility] Co de Phone Number [facility] from Last 3 Months or Most Recently Relevant to Health Maintenance Insurance [facility] MEDICAID Care Teams Ampoule Examiner Relationship Specialty Start Date End Date Norma Friedman APRN [address] [facility] [place]FA[place] [address] PCP - General 09/23/24 Lizz Trinh, RN [facility] Registered Nurse Cardiology 09/26/24
--- OUTSIDE RECORDS SUMMARY | 2024-10-10 08:33 | XMS_ITS | Encounter Summary ---
Author Organization Healthcare Address [address] [place] [address] Care Team Providers Care Enrolled Nurse Name Role Phone Norma Friedman APRN Primary Care Provider +1- [phone] Encounter Details Date Type Department Care Team [...] more drinks on one occasion? Never 09/23/2024 [place] Depression Scale Answer Date Recorded [place] Depression Scale Total 0 09/23/2024 The thought [...] Info) Description 10/17/2024 8:30 AM EDT Appointment [facility] Ultrasound [address] [place] [address] 10/24/2024 8:00 AM EDT Office Visit [facility] [place] [address], [address] [place] [address] Nneka Block MD [address] [place] [address] 12/25/2024 1:00 PM EST Office Visit [facility] Nephrology, Bone & Mineral Metabolism [address], [address] [place] [address] documented as of this encounter Visit Diagnoses Not on filedocumented in this encounter Additional Health Concerns Assessment Noted Time A Body Mass Index follow-up plan has been documented for the patient 09/23/2024 8:28 PM EDT documented as of this encounter Care Teams Enrolled Nurse Relationship Specialty Start Date End Date Norma Friedman APRN [address] [place] [id number] PCP - General 09/23/24 documented as of this encounter
[2024-10-10 08:45] LABS: Alanine Aminotransferase 45 U/L (12-78); Albumin Level 3.3 g/dl (3.5-5.0); Albumin/Globulin Ratio 1.1 (1.1-1.8); Alkaline Phosphatase 89 U/L (38-126); Anion Gap 9.6 mEq/L (5-15); Aspartate Amino Transferase 57 U/L (14-36); Bilirubin,Total 0.5 mg/dl (0.2-1.3); Blood Urea Nitrogen 5 mg/dl (7-17); Calcium 8.3 mg/dl (8.4-10.2); Carbon Dioxide 29 mmol/L (22.0-30.0); Chloride 95 mmol/L (98-107); Creatinine,Serum 0.60 mg/dl (0.52-1.04); Estimated Glomerular Filt Rate 115 ml/min (>60); GFR (African American) 139 ML/MIN (>60); Globulin 3.1 g/dL (1.3-3.2); Glucose 87 mg/dl (74-100); Sodium 131 mmol/L (136-145); Total Protein,Serum 6.4 g/dl (6.3-8.2)
[2024-10-10 08:53] LABS: Potassium 2.6 mmoL/L (3.5-5.1)
[2024-10-10 08:57] LABS: Magnesium 1.0 mg/dl (1.6-2.3)
[2024-10-10] MEDS: MAGNESIUM SULFATE IN WATER 2 GM/50 ML PIGGYBACK IV ×3 (09:30→12:20)
[2024-10-10 10:00] VITALS: BP 115/71; PULSE 102; RESP 17; O2SAT 98
[2024-10-10 11:15] VITALS: BP 122/61; PULSE 101; RESP 18; O2SAT 98
[2024-10-10 12:55] VITALS: BP 142/82; PULSE 98; RESP 18; O2SAT 99
== END 2024-10-10 12:56 | disposition home or self-care (01) ==
PROVIDERS: PCP Nurse Practitioner Family; Visit Provider Nurse Practitioner Obstetrics & Gynecology
DX: E87.6 Hypokalemia (principal)
CPT/HCPCS: 80053; 83735; 96365; 96366; 96367; J3475; J3480

== ENCOUNTER 2024-10-12 11:22 | Outpatient (CLI) | payer OTHER, SELFPAY ==
--- OUTSIDE RECORDS SUMMARY | 2024-08-19 10:15 | XMS_ITS | Encounter Summary ---
Author [facility] Address [address] [place] [address] Care Team Providers Care Senior Bi Architect Name Role Phone Norma Friedman APRN Primary Care Provider + [phone] Reason for Visit * Reason Comments Routine Visit Encounter Details Date Type Department Care Team (Late st Contact Info) Description 08/19/2024 10:15 AM EDT Routine [facility] OBGYN [address] [place] [address] Jacey Mathews, SKIN DRIER [address] [place] [address] GA: 25w1d Social History Tobacco Use Types Packs/Day Years Used Date Smoking Tobacco: Never Smokeless Tobacco: Never Alcohol Use Standard Drinks/Week Comments Never 0 (1 standard drink = 0.6 oz pur e alcohol) [facility] Utilities Answer Date Recorded In the past 12 months has [employer], gas, oil, or water [employer] threatened to shut off services in your [...] and heating? Not hard at all 05/28/2024 [facility] [place] [facility] - Occupational Stress Questionnaire [...] GED or equivalent No 05/28/2024 Preferred Language Dutch 05/28/2024 PHQ-2 Answer Date Recorded Patient Health [...] this encounter Progress Notes * Jacey Mathews, SKIN DRIER - 08/19/2024 10:15 AM EDT Images from [...] [facility] GASTROENTEROLOGY [address] [facility] [address] [place] [address] Robbin Escalante MD [address] [facility] [address] [place] [address] documented as of this encounter Visit Diagnoses Diagnosis Vaginal bleeding in - Primary 25 weeks gestation of documented in this encounter Additional Health Concerns Assessment Noted Time PHQ-2 Depression Total Score: 2 05/28/19 25 4:39 PM EDT documented as of this encounter Care Teams Senior Bi Architect Relationship Specialty Start Date End Date Norma Friedman APRN [address] [place] [address] [place] [address] PCP - General Family Medicine 05/14/24 documented as of this encounter
--- OUTSIDE RECORDS SUMMARY | 2024-08-19 13:59 | XMS_ITS | Encounter Summary ---
[facility] [address] [place] [id number] Care Team Providers Care Mental Tester Name Role Phone Ivyashlyn Norma FERNÁNDEZ Primary Care Provider + [phone] Reason for Visit * Reason Comments Vaginal Bleeding * Auth/Cert (Routine) Specialty Diagnoses / Procedures Referred By Contleyla t Referred To Contact Referral ID Status Reason Start Date Expiration Date Visits Re quested Visits Authorized [id number] 1 1 Encounter Details Date Type Department Care Team (Late st Contact Info) Description 08/19/2024 1:59 PM EDT - 08/20/2024 4:28 PM EDT Hospital Encounter [facility] [address] [place] [phone] Rob Wharton MD [address] [facility] [address] [place] [address] Blu Alvarado MD [address] [facility] [address] [place] [address] Dysphagia, unspecified type (Primary Dx) Discharge Disposition: Home or Self Care Social History Tobacco Use Types Packs/Day Years Used Date Smoking Tobacco: Never Smokeless Tobacco: Never Alcohol Use Standard Drinks/Week Comments Never 0 (1 standard drink = 0.6 oz pur e alcohol) [facility] Utilities Answer Date Recorded In the past 12 months has [employer], gas, oil, or water [employer] threatened to shut off services in your [...] and heating? Not hard at all 05/28/2024 [facility] [place] of Occupat ional Health - Occupational Stress [...] GED or equivalent No 05/28/2024 Preferred Language Prydeinig 05/28/2024 PHQ-2 Answer Date Recorded Patient Health [...] 1:23 PM EDT Polly Lacey RN * [place]offey Suicide Severity Rating Scale (Screener/Recent Self-Report) Question [...] Labs beginning of week and f/u with va Seng Test Results Pending at Discharge Pending Labs Order Current Status Tissue Pathology Exam In process Rob Wharton MD 08/20/24 15:36 EDT Time: Discharge <30 min documented in this encounter Discharge Instructions * Attachments The following attachments cannot be sent through Care Everywhere. * Second Trimester of (Prydeinig) * Upper Endoscopy Adult Care After (Prydeinig) documented in this encounter Medications at Time [...] 08/19/2024 RH Positive 08/19/2024 ABSCRN Negative 08/19/2024 [id number] non-reactive 04/12/2024 HEPCVIRUSABY negative 04/12/2024 URINECX Final [...] IUPC: Resting Tone: Resting Tone by IUPC: [place] Units: Cervix: Exam by: Method: sterile vaginal [...] from the original note were not included. [facility] Obstetric History and Physical Referring [...] her third trimesters prior pregnancies(etiology unknown). Patient's water supervisor is in [facility]. She states has never had a EGD [...] IUPC: Resting Tone: Resting Tone by IUPC: [place] Units: Laboratory Results: Lab Results (last 24 [...] AM EDTAssociated Order(s): IP CONSULT TO GASTROENTEROLOGY [facility] [place]astro[facility] Consult Referring Provider: Dr. Fan/Dr. Wharton PCP: oNrma Friedman APRN Reason for Consultation: IUP 25 [...] , await recommendations following EGD - consider REPAIR ORDER CLERK evaluation if no etiology for difficulty [...] from the original note were not included. [facility] Obstetric History and Physical Referring [...] her third trimesters prior pregnancies(etiology unknown). Patient's water supervisor is in [facility]. She states has never had a EGD [...] IUPC: Resting Tone: Resting Tone by IUPC: [place] Units: Laboratory Results: Lab Results (last 24 [...] [facility] [address] [facility] [phone] Robbin Escalante MD [address] [facility] [address] documented as of this encounter Procedures Procedure Name Priority Date/Time Associated Diagnosis Comments TISSUE PATHOLOGY EXAM Routine 08/20/2024 1:55 PM EDT Dysphagia, unspecified type MS ESOPHAGOGASTRODUODENOSCOP Y TRANSORAL DIAGNOSTIC 08/20/2024 1:44 PM EDT Dysphagia, unspecified type UPPER GI ENDOSCOPY 08/20/2024 1:09 PM EDT BASIC METABOLIC PANEL STAT 08/20/2024 5:25 AM EDT POTASSIUM STAT 08/19/2024 8:53 PM EDT ABORH 2ND SPECIMEN VERIFICATION STAT 08/19/2024 4:34 PM EDT NONSTRESS TEST Routine 08/19/2024 4:17 PM EDT [facility] Routine 08/19/2024 3:25 PM EDT [...] EDT) Case Report Surgical Pathology Report Case: [id number] Authorizing Provider: Blu Alvarado MD Collected: 08/20/2024 01:55 PM Ordering Location: [facility] Received: 08/20/2024 02:14 PM ENDO SUITES Pathologist: Khalida Rhoades DO Specimen: Gastric, Antrum, antrum bx for path 08/22/2024 9:18 AM EDT [facility] Clinical Information Dysphagia, unspecified type 08/22/2024 9:18 AM EDT [facility] Final Diagnosis Stomach, antrum, biopsy: 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 pylori is negative (no organisms are identified) Negative for intestinal metaplasia, dysplasia, or malignancy 08/22/2024 9:18 AM EDT [facility] at 0918 EDT Gross Description 1. Gastric, Antrum. Received in formalin labeled antrum biopsy is a 0.4 x 0.2 x 0.2 cm pink-see soft tissue fragment submitted entirely in a single cassette. HDM 08/22/2024 9:18 AM EDT [facility] Microscopic Description The slides are reviewed and demonstrate histopathologic features supporting the above rendered diagnosis. 08/22/2024 9:18 AM EDT [facility] Tissue Pyloric antrum structure / Unknown 08/20/2024 1:55 PM EDT 08/20/2024 2:14 PM EDT us Blu Alvarado MD PATHOLOGY/CYTOLOGY ORDERABLES Final Result [facility]
[address] [place] [address], * Upper GI Endoscopy (08/20/2024 1:09 PM EDT) us Blu Alvarado MD INTERFACE NEEDS Final Result * (ABNORMAL) Basic Metabolic Panel (08/20/2024 5:25 AM EDT) Glucose 84 65 - 99 mg/dL 08/20/2024 6:13 AM EDT [facility] BUN 2.3(L) 6.0 - 20.0 mg/dL 08/20/2024 6:13 AM EDT [facility] Creatinine 0.51(L) 0.57 - 1.00 mg/dL 08/20/2024 6:13 AM EDT [facility] Sodium 139 136 - 145 mmol/L 08/20/2024 6:13 AM EDT [facility] Potassium 3.5 3.5 - 5.2 mmol/L 08/20/2024 6:13 AM EDT [facility] Chloride 109(H) 98 - 107 mmol/L 08/20/2024 6:13 AM EDT [facility] CO2 23.5 22.0 - 29.0 mmol/L 08/20/2024 6:13 AM EDT [facility] Calcium 7.8(L) 8.6 - 10.5 mg/dL 08/20/2024 6:13 AM EDT [facility] BUN/Creatinine Ratio 4.5(L) 7.0 - 25.0 08/20/2024 6:13 AM EDT [facility] Anion Gap 6.5 5.0 - 15.0 mmol/L 08/20/2024 6:13 AM T [facility] eGFR 126.6 >60.0 mL/min/1.7 3 08/20/2024 6:13 AM T [facility] Blood Venipuncture / Unknown 08/20/2024 5:25 AM EDT 08/20/2024 5:46 AM EDT [facility] - 08/20/2024 6:13 AM EDT [...] ORDERABLES Final Resu lt Performing Organization Address City/[facility]/ZIP Co de Phone Number [facility]
[address] [place] [address], * (ABNORMAL) Potassium (08/19/2024 8:53 PM EDT) Potassium 2.7(L) 3.5 - 5.2 mmol/L 08/19/2024 9:20 PM EDT [facility] Blood Venipuncture / Unknown 08/19/2024 8:53 PM EDT 08/19/2024 9:04 PM EDT Kt Fan DO LAB BLOOD ORDERABLES Final Result Performing Organization Address [facility] Co de Phone Number [facility]
[address] [place] [address], * ABO RH Specimen Verification (08/19/2024 4:34 PM EDT) ABO Type O 08/19/2024 7:39 PM EDT [facility] RH type Positive 08/19/2024 7:39 PM EDT [facility] Blood Venipuncture / Unknown 08/19/2024 4:34 PM EDT 08/19/2024 4:53 PM EDT Rob Wharton MD BLOOD BANK TEST ORDER FRANCO Final Result Performing Organization Address City/[facility]/ZIP Co de Phone Number [facility]
[address] [place] [address], * [facility] (08/19/2024 3:25 PM EDT) Anatomical Region Laterality Modality Ultrasound 08/19/2024 3:09 PM EDT Narrative 08/19/2024 4:54 PM EDT PAT NAME: CAROLE GIRARD MED REC#: [id number] DA: 1990 PAT GEND: F PAT TYPE: E EXAM TRAVIS: [id number] REF PHYS ROB WHARTON Comparison Studies The [...] EFW (oz) 9 oz EFW by: Hadlock ([id number]) Extended Cav. septi pel. tr 4.7 mm Financial Reserve Clerk 3.8 mm CM 7.5 mm 84% Nicolaides [...] Heart / Thorax 3-vessel view: Appears normal 0-xbdkzn-lqeagmp view: Appears normal Stomach: Appears normal Kidneys: [...] in 4wks for growth. Coding ======= Description: 89057-60 Follow Up Grooming Assistant: RT Annetta Hartmann , [facility] Physician: Jo Chappell MD Electronically signed by: Jo Chappell MD at: 16:54 Procedure Note Jo Chappell MD - 08/19/2024 PAT NAME: CAROLE GIRARD MED REC#: [id number] DA: 1990 PAT GEND: F PAT TYPE: E EXAM TRAVIS: [id number] REF PHYS ROB WHARTON Comparison Studies The findings of this study are compared to the prior ultrasound studydated 07/22/24 Patient Status Inpatient Indication ======== History of c/s x1. History of . Vaginal bleeding. Maternal Assessment Nmspjw919 cm Height (ft)5 ft Height (in)4 in Mstoxr04 kg Weight (lb)158 lb BMI27.31 kg/m Method ======= Transabdominal ultrasound examination. View: Limited by patient bodyhabitus ========= Love . Number of fetuses: 1 Dating ====== Method of dating:based on stated DUSTY GA by prior [id number] w + 1 d DUSTY by prior assessment:12/01/2024 Ultrasound examination on:08/19/2024 GA by U/S based upon:AC, BPD, Femur, HC GA by U/S24 w + 2 d DUSTY by U/S:12/07/2024 Previous dating:based on stated DUSTY, selected on 07/22/2024 Agreed DUSTY of previous datin12/01/2024 Assigned:based on stated DUSTY, selected on 08/19/2024 Assigned GA25 w + 1 d Assigned DUSTY:12/01/2024 [id number] d Biometry Standard BPD57.6 mm 23w 4d 5% Hadlock OFD81.6 mm 26w 4d 88% Jamal HC225.7 mm 24w 4d 13% Hadlock Cerebellum tr28.9 mm 25w 2d 62% Hill AC194.9 mm 24w 1d 15% Hadlock Femur44.9 mm 24w 6d 27% Hadlock Cnmijao52.3 mm 25w 3d 50% Jamal HC / AC1.16 NTZ628 g 24w 2d 16% Hadlock EFW (lb)1 lb EFW (oz)9 oz EFW by:Hadlock ([id number]) Extended Cav. septi pel. tr4.7 mm Vp3.8 mm CM7.5 mm 84% Nicolaides Head / Face / Neck Cephalic index0.71 <1% Nicolaides Extremities / Bony Struc FL / BPD0.78 FL / HC0.20 FL / AC0.23 Other Structures [id number] bpm General Evaluation Cardiac activity present. FHR [...] normal Heart / Thorax 3-vessel view:Appears normal 4-gakobn-ofkdzer view:Appears normal Stomach:Appears normal Kidneys:Appears normal Bladder:Appears normal Gender:female Wants to know gender:yes Maternal Structures Uterus / Cervix Cervix:Visualized Approach:Transabdominal Cervical nurfpq08.9 mm Doppler Arterial Umbilical A PI1.01 32% [...] office in 4wks for growth. Coding ======= Description:02356-21 Follow Up Grooming Assistant: RT Annetta Hartmann , RDMS Physician: Jo Chappell MD Electronically signed by: Jo Chappell MD at: 16:54 us Kt Fan DO G US ORDERABLES Final Res ult * Protein / Creatinine Ratio, Urine - Urine, Clean Catch (08/19/2024 3:02 PM EDT) Protein/Creati nine Ratio, Urine 126.1 0.0 - 200.0 mg/G Crea 08/20/2024 12:47 AM EDT [facility] Creatinine, Urine 148.3 mg/dL 08/20/2024 12:47 AM EDT [facility] Total Protein, Urine 18.7 mg/dL 08/20/2024 12:47 AM EDT [facility] Urine Urine specimen obtained by clean catch procedure / Unknown Collection / Unknown 08/19/2024 3:02 PM EDT 08/19/2024 4:26 PM EDT Kt Fan URINE ORDERABLES Final Resu lt [facility]
[address] [place] [address], [place] [phone] * (ABNORMAL) Magnesium (08/19/2024 3:02 PM EDT) Magnesium 1.5(L) 1.6 - 2.6 mg/dL 08/19/2024 5:12 PM EDT [facility] Blood Line / Unknown 08/19/2024 3: 02 PM EDT 08/19/2024 3:10 PM EDT Kt Fan DO LAB BLOOD ORDERABLES Final Result [facility]
[address] [place] [address], [place] [phone] * Urinalysis, Microscopic Only - Urine, Clean Catch (08/19/2024 3:02 PM EDT) RBC, UA 0-2 None Seen, 0-2 /HPF 08/19/2024 3:33 PM EDT [facility] WBC, UA 0-2 None Seen, 0-2 /HPF 08/19/2024 3:33 PM EDT [facility] Bacteria, UA None Seen None Seen /HPF 08/19/2024 3:33 PM EDT [facility] Squamous Epithelial Cells, UA 0-2 None Seen, 0-2 /HPF 08/19/2024 3:33 PM EDT [facility] Hyaline Casts, UA None Seen None Seen /LPF 08/19/2024 3:33 PM EDT [facility] Methodology Automated Microscopy 08/19/2024 3:33 PM EDT [facility] Urine Urine specimen obtained by clean catch procedure / Unknown Collection / Unknown 08/19/2024 3:02 PM EDT 08/19/2024 3:13 PM EDT us Kt Fan DO URINE ORDERABLES Final Resu lt [facility]
[address] [place] [address], * (ABNORMAL) CBC Auto Differential (08/19/2024 3:02 PM EDT) WBC 9.19 3.40 - 10.80 10*3/mm3 08/19/2024 3:23 PM EDT [facility] RBC 3.58(L) 3.77 - 5.28 10*6/mm3 08/19/2024 3:23 PM EDT [facility] Hemoglobin 10.5(L) 12.0 - 15.9 g/dL 08/19/2024 3:23 PM EDT [facility] Hematocrit 31.4(L) 34.0 - 46.6 % 08/19/2024 3:23 PM EDT [facility] MCV 87.7 79.0 - 97.0 fL 08/19/2024 3:23 PM EDT [facility] MCH 29.3 26.6 - 33.0 pg 08/19/2024 3:23 PM EDT [facility] MCHC 33.4 31.5 - 35.7 g/dL 08/19/2024 3:23 PM EDT [facility] RDW 13.4 12.3 - 15.4 % 08/19/2024 3:23 PM EDT [facility] RDW-SD 42.4 37.0 - 54.0 fl 08/19/2024 3:23 PM EDT [facility] MPV 12.0 6.0 - 12.0 fL 08/19/2024 3:23 PM EDT [facility] Platelets 241 140 - 450 10*3/mm3 08/19/2024 3:23 PM EDT [facility] Neutrophil % 66.8 42.7 - 76.0 % 08/19/2024 3:23 PM EDT [facility] Lymphocyte % 24.4 19.6 - 45.3 % 08/19/2024 3:[facility] Monocyte % 7.6 5.0 - 12.0 % 08/19/2024 3:23 PM [facility] Eosinophil % 0.7 0.3 - 6.2 % 08/19/2024 3:23 PM [facility] Basophil % 0.2 0.0 - 1.5 % 08/19/2024 3:23 PM [facility] Immature Grans % 0.3 0.0 - 0.5 % 08/19/2024 3:23 PM [facility] Neutrophils, Absolute 6.14 1.70 - 7.00 10*3/mm3 08/19/2024 3:23 PM [facility] Lymphocytes, Absolute 2.24 0.70 - 3.10 10*3/mm3 08/19/2024 3:23 PM EDT [facility] Monocytes, Absolute 0.70 0.10 - 0.90 10*3/mm3 08/19/2024 3:23 PM EDT [facility] Eosinophils, Absolute 0.06 0.00 - 0.40 10*3/mm3 08/19/2024 3:23 PM [facility] Basophils, Absolute 0.02 0.00 - 0.20 10*3/mm3 08/19/2024 3:23 PM EDT [facility] Immature Grans, Absolute 0.03 0.00 - 0.05 10*3/mm3 08/19/2024 3:23 PM EDT [facility] nRBC 0.0 0.0 - 0.2 /100 WBC 08/19/2024 3:23 PM EDT [facility] Blood Line / Unknown 08/19/2024 3: 02 PM EDT 08/19/2024 3:10 PM EDT Kt Fan DO LAB BLOOD ORDERABLES Final Result [facility]
[address] [place] [address], * (ABNORMAL) Urinalysis With Microscopic If Indicated (No Culture) - Urine, Clean Catch (08/19/2024 3:02 PM EDT) Color, UA Yellow Yellow, Straw 08/19/2024 3:33 PM EDT [facility] Appearance, UA Clear Clear 08/19/2024 3:33 PM EDT [facility] pH, UA >=9.0(H) 5.0 - 8.0 08/19/2024 3:33 PM EDT [facility] Specific [place], UA 1.018 1.005 - 1.030 08/19/2024 3:33 PM EDT [facility] Glucose, UA Negative Negative 08/19/2024 3:33 PM EDT [facility] Ketones, UA 15 mg/dL (1+)(A) Negative 08/19/2024 3:33 PM EDT [facility] Bilirubin, UA Negative Negative 08/19/2024 3:33 PM EDT [facility] Blood, UA Negative Negative 08/19/2024 3:33 PM EDT [facility] Protein, UA 30 mg/dL (1+)(A) Negative 08/19/2024 3:33 PM EDT [facility] Leuk Esterase, UA Negative Negative 08/19/2024 3:33 PM EDT [facility] Nitrite, UA Negative Negative 08/19/2024 3:33 PM EDT [facility] Urobilinogen, UA 1.0 E.U./dL 0.2 - 1.0 E.U./dL 08/19/2024 3:33 PM EDT [facility] Urine Urine specimen obtained by clean catch procedure / Unknown Collection / Unknown 08/19/2024 3:02 PM EDT 08/19/2024 3:13 PM EDT us Kt Fan DO URINE ORDERABLES Final Resu lt Performing Organization Address City/[facility]/ZIP Co de Phone Number [facility]
[address] [place] [address], [place] [phone] * Amylase (08/19/2024 3:02 PM EDT) Amylase 73 28 - 100 U/L 08/19/2024 3:36 PM EDT [facility] Blood Line / Unknown 08/19/2024 3: 02 PM EDT 08/19/2024 3:10 PM EDT us Kt Fan DO LAB BLOOD ORDERABLES Final Result Performing Organization Address [facility] Co de Phone Number [facility]
[address] [place] [address], [place] [phone] * Lipase (08/19/2024 3:02 PM EDT) Lipase 13 13 - 60 U/L 08/19/2024 3:36 PM EDT [facility] Blood Line / Unknown 08/19/2024 3: 02 PM EDT 08/19/2024 3:10 PM EDT us Kt Fan DO LAB BLOOD ORDERABLES Final Result Performing Organization Address City/[facility]/ZIP Co de Phone Number [facility]
[address] [place] [address], * (ABNORMAL) Comprehensive Metabolic Panel (08/19/2024 3:02 PM EDT) [facility] Glucose 75 65 - 99 mg/dL 08/19/2024 3:38 PM EDT [facility] BUN 3.6(L) 6.0 - 20.0 mg/dL 08/19/2024 3:38 PM EDT [facility] Creatinine 0.51(L) 0.57 - 1.00 mg/dL 08/19/2024 3:38 PM EDT [facility] Sodium 137 136 - 145 mmol/L 08/19/2024 3:38 PM EDT [facility] Potassium 2.6(LL) 3.5 - 5.2 mmol/L 08/19/2024 3:38 PM EDT [facility] Comment:Specimen hemolyzed. Result may be falsely elevated. Chloride 99 98 - 107 mmol/L 08/19/2024 3:38 PM EDT [facility] CO2 24.2 22.0 - 29.0 mmol/L 08/19/2024 3:38 PM EDT [facility] Calcium 8.8 8.6 - 10.5 mg/dL 08/19/2024 3:38 PM EDT [facility] Total Protein 6.6 6.0 - 8.5 g/dL 08/19/2024 3:38 PM EDT [facility] Albumin 3.4(L) 3.5 - 5.2 g/dL 08/19/2024 3:38 PM EDT [facility] ALT (SGPT) 10 1 - 33 U/L 08/19/2024 3:38 PM EDT [facility] AST (SGOT) 22 1 - 32 U/L 08/19/2024 3:38 PM EDT [facility] Alkaline Phosphatase 64 39 - 117 U/L 08/19/2024 3:38 PM EDT [facility] Total Bilirubin 0.5 0.0 - 1.2 mg/dL 08/19/2024 3:38 PM EDT [facility] Globulin 3.2 gm/dL 08/19/2024 3:38 PM EDT [facility] Comment:Calculated Result A/G Ratio 1.1 g/dL 08/19/2024 3:38 PM EDT [facility] BUN/Creatinine Ratio 7.1 7.0 - 25.0 08/19/2024 3:38 PM EDT [facility] Anion Gap 13.8 5.0 - 15.0 mmol/L 08/19/2024 3:38 PM EDT [facility] eGFR 126.6 >60.0 mL/min/1.7 3 08/19/2024 3:38 PM EDT [facility] Blood Line / Unknown 08/19/2024 3: 02 PM EDT 08/19/2024 3:10 PM EDT Narrative [facility] - 08/19/2024 3:38 PM EDT GFR [...] Fan DO LAB BLOOD ORDERABLES Final Result [facility]
[address] [place] [address], * Type & Screen (08/19/2024 3:02 PM EDT) ABO Type O 08/19/2024 3:51 PM EDT [facility] RH type Positive 08/19/2024 3:51 PM EDT [facility] Antibody Screen Negative 08/19/2024 3:51 PM EDT [facility] T&S Expiration Date 08/22/2024 11:59:59 PM 08/19/2024 3:51 PM EDT [facility] Blood Line / Unknown 08/19/2024 3: 02 PM EDT 08/19/2024 3:15 PM EDT Kt Fan DO BLOOD BANK TEST ORDERABLES Edited Result - Final [facility]
[address] [place] [address], documented in this encounter Visit Diagnoses Diagnosis [...] documented as of this encounter Care Teams Mental Tester Relationship Specialty Start Date End Date Norma Friedman APRN [address] [place] G3 RAFAELA APPIAH [id number] PCP - General Family Medicine 05/14/24 documented as of this encounter
--- OUTSIDE RECORDS SUMMARY | 2024-08-20 13:33 | XMS_ITS | Encounter Summary ---
[facility] Address [address] [place] [address] Care Team Providers Care Cloud Operations Engineer Name Role Phone Norma Friedman APRN Primary Care Provider + [phone] Reason for Visit * Reason Comments Vaginal Bleeding * Auth/Cert (Routine) Specialty Diagnoses / Procedures Referred By Tarik t Referred To Contact Referral ID Status Reason Start Date Expiration Date Visits Re quested Visits Authorized [id number] 1 1 Encounter Details Date Type Department Care Team (Late st Contact Info) Description 08/20/2024 1:33 PM EDT - 08/20/2024 2:05 PM EDT Surgery [facility] ENDO SUITES [address] [place] [address] Blu Alvarado MD [address] [facility] [address] [place] [address] ESOPHAGOGASTRODUODENOSCOPY [99627 (CPT )] Social History Tobacco Use Types Packs/Day Years Used Date Smoking Tobacco: Never Smokeless Tobacco: Never Alcohol Use Standard Drinks/Week Comments Never 0 (1 standard drink = 0.6 oz pur e alcohol) [facility] Utilities Answer Date Recorded In [...] and heating? Not hard at all 05/28/2024 [facility] - Occupational Stress Questionnaire Answer Date [...] 1:23 PM EDT Polly Lacey RN * Warren Suicide Severity Rating Scale (Screener/Recent Self-Report) Question [...] [facility] Pending at Discharge [...] 08/19/2024 RH Positive 08/19/2024 ABSCRN Negative 08/19/2024 [id number] non-reactive 04/12/2024 HEPCVIRUSABY negative 04/12/2024 URINECX Final [...] IUPC: Resting Tone: Resting Tone by IUPC: Ribera Units: Cervix: Exam by: Method: sterile vaginal [...] from the original note were not included. [facility] Obstetric History and Physical Referring Provider: [...] her third trimesters prior pregnancies(etiology unknown). 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 She states has never had a EGD [...] IUPC: Resting Tone: Resting Tone by IUPC: Ribera Units: Laboratory Results: Lab Results (last 24 [...] EDTAssociated Order(s): IP CONSULT TO GASTROENTEROLOGY [facility] Gastroenterology Consult Referring Provider: [...] expresses concern regarding recent CT scan at [facility] revealing a hiatal hernia. CT scan done prior to most recent due to ovarian cyst and incidentally revealed hiatal hernia. She reports chronic gastrointestinal symptoms. Review of medical record revealed prior GI referral due to blood per rectum. She reports colonoscopy in 2020 at outside facility that revealed diverticulosis and benign colon polyp. She is currently established with provider at [facility] for gastroenterology care she reports [...] , await recommendations following EGD - consider FORMULATION CHEMIST evaluation if no etiology for difficulty swallowing [...] from the original note were not included. [facility] Obstetric History and Physical Referring Provider: [...] her third trimesters prior pregnancies(etiology unknown). 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 She states has never had a EGD [...] IUPC: Resting Tone: Resting Tone by IUPC: Ribera Units: Laboratory Results: Lab Results (last 24 [...] Description 01/20/2025 3:30 PM EST Office Visit [facility] GASTROENTEROLOGY [address] [address] Robbin Escalante MD [address] [address] documented as of this encounter Procedures Procedure [...] NONSTRESS TEST Routine 08/19/2024 4:17 PM EDT [facility] Routine 08/19/2024 3:25 [...] EDT) Case Report Surgical Pathology Report Case: [id number] Authorizing Provider: Blu Alvarado MD Collected: 08/20/2024 01:55 PM Ordering Location: [facility] Received: 08/20/2024 02:14 PM ENDO SUITES Pathologist: Khalida Rhoades DO Specimen: Gastric, Antrum, antrum bx for path 08/22/2024 9:18 AM EDT [facility] Clinical Information Dysphagia, unspecified type 08/22/2024 9:18 AM EDT [facility] Final Diagnosis Stomach, antrum, biopsy: 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 pylori is negative (no organisms are identified) Negative for intestinal metaplasia, dysplasia, or malignancy 08/22/2024 9:18 AM EDT [facility] at 0918 EDT Gross Description 1. Gastric, Antrum. Received in formalin labeled antrum biopsy is a 0.4 x 0.2 x 0.2 cm pink-see soft tissue fragment submitted entirely in a single cassette. HDM 08/22/2024 9:18 AM EDT [facility] Microscopic Description The slides are reviewed and demonstrate histopathologic features supporting the above rendered diagnosis. 08/22/2024 9:18 AM EDT [facility] Tissue Pyloric antrum structure / Unknown 08/20/2024 1:55 PM EDT 08/20/2024 2:14 PM EDT us Blu Alvarado MD PATHOLOGY/CYTOLOGY ORDERABLES Final Result [facility]
[address] [place] [address], * Upper GI Endoscopy (08/20/2024 1:09 PM EDT) us Blu Alvarado MD INTERFACE NEEDS Final Result * (ABNORMAL) Basic Metabolic Panel (08/20/2024 5:25 AM EDT) Glucose 84 65 - 99 mg/dL 08/20/2024 6:13 AM EDT [facility] BUN 2.3(L) 6.0 - 20.0 mg/dL 08/20/2024 6:13 AM T [facility] Creatinine 0.51(L) 0.57 - 1.00 mg/dL 08/20/2024 6:13 AM [facility] Sodium 139 136 - 145 mmol/L 08/20/2024 6:13 AM EDT [facility] Potassium 3.5 3.5 - 5.2 mmol/L 08/20/2024 6:13 AM EDT [facility] Chloride 109(H) 98 - 107 mmol/L 08/20/2024 6:13 AM [facility] CO2 23.5 22.0 - 29.0 mmol/L 08/20/2024 6:13 AM [facility] Calcium 7.8(L) 8.6 - 10.5 mg/dL 08/20/2024 6:13 AM [facility] BUN/Creatinine Ratio 4.5(L) 7.0 - 25.0 08/20/2024 6:13 AM [facility] Anion Gap 6.5 5.0 - 15.0 mmol/L 08/20/2024 6:13 AM [facility] eGFR 126.6 >60.0 mL/min/1.7 3 08/20/2024 6:13 AM [facility] Blood Venipuncture / Unknown 08/20/2024 5:25 AM EDT 08/20/2024 5:46 AM T [facility] LABORATORY - 08/20/2024 6:13 AM EDT [...] Final Resu lt Performing Organization Address City/[facility]/ZIP Co de Phone Number [facility]
[address] [place] [address], * (ABNORMAL) Potassium (08/19/2024 8:53 PM EDT) Potassium 2.7(L) 3.5 - 5.2 mmol/L 08/19/2024 9:20 PM EDT [facility] Blood Venipuncture / Unknown 08/19/2024 8:53 PM EDT 08/19/2024 9:04 PM EDT Kt Fan DO LAB BLOOD ORDERABLES Final Result Performing Organization Address [facility] Co de Phone Number [facility]
[address] [place] [address], * ABO RH Specimen Verification (08/19/2024 4:34 PM EDT) ABO Type O 08/19/2024 7:39 PM EDT [facility] LABORATORY RH type Positive 08/19/2024 7:39 PM EDT [facility] Blood Venipuncture / Unknown 08/19/2024 4:34 PM EDT 08/19/2024 4:53 PM EDT Rob Wharton MD BLOOD BANK TEST ORDER FRANCO Final Result Performing Organization Address City/[facility]/ZIP Co de Phone Number [facility] LABORATORY
[address] [place] [address], * [facility] (08/19/2024 3:25 PM EDT) Anatomical Region Laterality Modality Ultrasound 08/19/2024 3:09 PM EDT Narrative 08/19/2024 4:54 PM EDT PAT NAME: CAROLE GIRARD MED REC#: [id number] DA: 1990 PAT GEND: F PAT TYPE: E EXAM TRAVIS: [id number] REF PHYS ROB WHARTON Comparison Studies The [...] EFW (oz) 9 oz EFW by: Hadlock ([id number]) Extended Cav. septi pel. tr 4.7 mm Automatic Toe Laster 3.8 mm CM 7.5 mm 84% Nicolaides [...] Heart / Thorax 3-vessel view: Appears normal 8-pkfaue-jkxwgjp view: Appears normal Stomach: Appears normal Kidneys: [...] in 4wks for growth. Coding ======= Description: 29970-29 Follow Up Cad Draftsman: Alison Verduzco RT R , MS Physician: Jo Chappell MD Electronically signed by: oJ Chappell MD at: 16:54 Procedure Note Jo Chappell MD - 08/19/2024 PAT NAME: CAROLE GIRARD MED REC#: [id number] DA: [id number] PAT GEND: F PAT TYPE: E EXAM TRAVIS: [id number] REF PHYS ROB WHARTON Comparison Studies The findings of this study are compared to the prior ultrasound studydated 07/22/24 Patient Status Inpatient Indication ======== History of c/s x1. History of . Vaginal bleeding. Maternal Assessment Agnexw001 cm Height (ft)5 ft Height (in)4 in Fpbzyn69 kg Weight (lb)158 lb BMI27.31 kg/m Method ======= Transabdominal ultrasound examination. View: Limited by patient bodyhabitus ========= Love . Number of fetuses: 1 Dating ====== Method of dating:based on stated DUSTY GA by prior [id number] w + 1 d DUSTY by prior [...] Hadlock Femur44.9 mm 24w 6d 27% Hadlock Mpduuch02.3 mm 25w 3d 50% Jamal HC / AC1.16 YJA054 g 24w 2d 16% Hadlock EFW (lb)1 lb EFW (oz)9 oz EFW by:Hadlock ([id number]) Extended Cav. septi pel. tr4.7 mm Vp3.8 mm CM7.5 mm 84% Nicolaides Head / Face / Neck Cephalic index0.71 <1% Nicolaides Extremities / Bony Struc FL / BPD0.78 FL / HC0.20 FL / AC0.23 Other Structures UAY746 bpm General Evaluation Cardiac activity present. FHR [...] normal Heart / Thorax 3-vessel view:Appears normal 4-hgyrtx-kesnjwv view:Appears normal Stomach:Appears normal Kidneys:Appears normal Bladder:Appears [...] office in 4wks for growth. Coding ======= Description:36261-37 Follow Up Cad Draftsman: RT Annetta Hartmann , [facility] Physician: Jo Chappell MD Electronically signed by: Jo Chappell MD at: 16:54 us Kt Fan DO [facility] US ORDERABLES Final Res ult * Protein [...] Fan DO URINE ORDERABLES Final Resu lt [facility]
[address] [place] [address], [place] [phone] * (ABNORMAL) Magnesium (08/19/2024 3:02 PM EDT) Magnesium 1.5(L) 1.6 - 2.6 mg/dL 08/19/2024 5:12 PM EDT [facility] Blood Line / Unknown 08/19/2024 3: 02 PM EDT 08/19/2024 3:10 PM EDT Kt Fan DO LAB BLOOD ORDERABLES Final Result Performing Organization Address City/[facility]/ZIP Co de Phone Number [facility]
[address] [place] [address], [place] [phone] * Urinalysis, Microscopic Only - Urine, Clean Catch (08/19/2024 3:02 PM EDT) RBC, UA 0-2 None Seen, 0-2 /HPF 08/19/2024 3:33 PM EDT [facility] WBC, UA 0-2 None Seen, 0-2 /HPF 08/19/2024 3:33 PM EDT [facility] Bacteria, UA None Seen None Seen /HPF 08/19/2024 3:33 PM EDT [facility] Squamous Epithelial Cells, UA 0-2 None Seen, 0-2 /HPF 08/19/2024 3:33 PM EDT [facility] Hyaline Casts, UA None Seen None Seen /LPF 08/19/2024 3:33 PM EDT [facility] Methodology Automated Microscopy 08/19/2024 3:33 PM EDT [facility] Urine Urine specimen obtained by clean catch procedure / Unknown Collection / Unknown 08/19/2024 3:02 PM EDT 08/19/2024 3:13 PM EDT Kt Fan DO URINE ORDERABLES Final Resu lt [facility]
[address] [place] [address], * (ABNORMAL) CBC Auto Differential (08/19/2024 3:02 PM EDT) WBC 9.19 3.40 - 10.80 10*3/mm3 08/19/2024 3:23 PM EDT [facility] RBC 3.58(L) 3.77 - 5.28 10*6/mm3 08/19/2024 3:23 PM EDT [facility] Hemoglobin 10.5(L) 12.0 - 15.9 g/dL 08/19/2024 3:23 PM EDT [facility] Hematocrit 31.4(L) 34.0 - 46.6 % 08/19/2024 3:23 PM EDT [facility] MCV 87.7 79.0 - 97.0 fL 08/19/2024 3:23 PM EDT [facility] MCH 29.3 26.6 - 33.0 pg 08/19/2024 3:23 PM EDT [facility] MCHC 33.4 31.5 - 35.7 g/dL 08/19/2024 3:23 PM EDT [facility] RDW 13.4 12.3 - 15.4 % 08/19/2024 3:23 PM EDT [facility] RDW-SD 42.4 37.0 - 54.0 fl 08/19/2024 3:23 PM EDT [facility] MPV 12.0 6.0 - 12.0 fL 08/19/2024 3:23 PM EDT [facility] Platelets 241 140 - 450 10*3/mm3 08/19/2024 3:23 PM EDT [facility] Neutrophil % 66.8 42.7 - 76.0 % 08/19/2024 3:23 PM EDT [facility] Lymphocyte % 24.4 19.6 - 45.3 % 08/19/2024 3:23 PM EDT [facility] Monocyte % 7.6 5.0 - 12.0 % 08/19/2024 3:23 PM EDT [facility] Eosinophil % 0.7 0.3 - 6.2 % 08/19/2024 3:23 PM EDT [facility] Basophil % 0.2 0.0 - 1.5 % 08/19/2024 3:23 PM EDT [facility] Immature Grans % 0.3 0.0 - 0.5 % 08/19/2024 3:23 PM EDT [facility] Neutrophils, Absolute 6.14 1.70 - 7.00 10*3/mm3 08/19/2024 3:23 PM EDT [facility] Lymphocytes, Absolute 2.24 0.70 - 3.10 10*3/mm3 08/19/2024 3:23 PM EDT [facility] Monocytes, Absolute 0.70 0.10 - 0.90 10*3/mm3 08/19/2024 3:23 PM EDT [facility] Eosinophils, Absolute 0.06 0.00 - 0.40 10*3/mm3 08/19/2024 3:23 PM EDT [facility] Basophils, Absolute 0.02 0.00 - 0.20 10*3/mm3 08/19/2024 3:23 PM EDT [facility] Immature Grans, Absolute 0.03 0.00 - 0.05 10*3/mm3 08/19/2024 3:23 PM EDT [facility] nRBC 0.0 0.0 - 0.2 /100 WBC 08/19/2024 3:23 PM EDT [facility] Blood Line / Unknown 08/19/2024 3: 02 PM EDT 08/19/2024 3:10 PM EDT Kt Fna DO LAB BLOOD ORDERABLES Final Result [facility]
[address] [place] [address], * (ABNORMAL) Urinalysis With Microscopic If Indicated (No Culture) - Urine, Clean Catch (08/19/2024 3:02 PM EDT) Color, UA Yellow Yellow, Straw 08/19/2024 3:33 PM EDT [facility] Appearance, UA Clear Clear 08/19/2024 3:33 PM EDT [facility] pH, UA >=9.0(H) 5.0 - 8.0 08/19/2024 3:33 PM EDT [facility] Specific [place], UA 1.018 1.005 - 1.030 08/19/2024 3:33 PM EDT [facility] Glucose, UA Negative Negative 08/19/2024 3:33 PM EDT [facility] Ketones, UA 15 mg/dL (1+)(A) Negative 08/19/2024 3:33 PM EDT [facility] Bilirubin, UA Negative Negative 08/19/2024 3:33 PM EDT [facility] Blood, UA Negative Negative 08/19/2024 3:33 PM EDT [facility] Protein, UA 30 mg/dL (1+)(A) Negative 08/19/2024 3:33 PM EDT [facility] Leuk Esterase, UA Negative Negative 08/19/2024 3:33 PM EDT [facility] Nitrite, UA Negative Negative 08/19/2024 3:33 PM EDT [facility] Urobilinogen, UA 1.0 E.U./dL 0.2 - 1.0 E.U./dL 08/19/2024 3:33 PM EDT [facility] Urine Urine specimen obtained by clean catch procedure / Unknown Collection / Unknown 08/19/2024 3:02 PM EDT 08/19/2024 3:13 PM EDT us Kt Fan DO URINE ORDERABLES Final Resu lt [facility]
[address] [place] [address], [place] [phone] * Amylase (08/19/2024 3:02 PM EDT) Amylase 73 28 - 100 U/L 08/19/2024 3:36 PM EDT [facility] Blood Line / Unknown 08/19/2024 3: 02 PM EDT 08/19/2024 3:10 PM EDT us Kt Fan DO LAB BLOOD ORDERABLES Final Result Performing Organization Address [facility] Co de Phone Number [facility]
[address] [place] [address], [place] [phone] * Lipase (08/19/2024 3:02 PM EDT) Lipase 13 13 - 60 U/L 08/19/2024 3:36 PM EDT [facility] Blood Line / Unknown 08/19/2024 3: 02 PM EDT 08/19/2024 3:10 PM EDT us Kt Fan DO LAB BLOOD ORDERABLES Final Result Performing Organization Address City/[facility]/ZIP Co de Phone Number [facility]
[address] [place] [address], [place] [phone] * (ABNORMAL) Comprehensive Metabolic Panel (08/19/2024 3:02 PM EDT) Glucose 75 65 - 99 mg/dL 08/19/2024 3:38 PM EDT [facility] BUN 3.6(L) 6.0 - 20.0 mg/dL 08/19/2024 3:38 PM T [facility] Creatinine 0.51(L) 0.57 - 1.00 mg/dL 08/19/2024 3:38 PM EDT [facility] Sodium 137 136 - 145 mmol/L 08/19/2024 3:38 PM T [facility] Potassium 2.6(LL) 3.5 - 5.2 mmol/L 08/19/2024 3:38 PM [facility] Comment:Specimen hemolyzed. Result may be falsely elevated. Chloride 99 98 - 107 mmol/L 08/19/2024 3:38 PM [facility] CO2 24.2 22.0 - 29.0 mmol/L 08/19/2024 3:38 PM T [facility] Calcium 8.8 8.6 - 10.5 mg/dL 08/19/2024 3:38 PM T [facility] Total Protein 6.6 6.0 - 8.5 g/dL 08/19/2024 3:38 PM [facility] Albumin 3.4(L) 3.5 - 5.2 g/dL 08/19/2024 3:38 PM [facility] ALT (SGPT) 10 1 - 33 U/L 08/19/2024 3:38 PM T [facility] AST (SGOT) 22 1 - 32 U/L 08/19/2024 3:38 PM T [facility] Alkaline Phosphatase 64 39 - 117 U/L 08/19/2024 3:38 PM [facility] Total Bilirubin 0.5 0.0 - 1.2 mg/dL 08/19/2024 3:38 PM T [facility] Globulin 3.2 gm/dL 08/19/2024 3:38 PM T [facility] Comment:Calculated Result A/G Ratio 1.1 g/dL 08/19/2024 3:38 PM EDT [facility] BUN/Creatinine Ratio 7.1 7.0 - 25.0 08/19/2024 3:38 PM EDT [facility] Anion Gap 13.8 5.0 - 15.0 mmol/L 08/19/2024 3:38 PM EDT [facility] eGFR 126.6 >60.0 mL/min/1.7 3 08/19/2024 3:38 PM EDT [facility] Blood Line / Unknown 08/19/2024 3: 02 PM EDT 08/19/2024 3:10 PM EDT [facility] LABOR[facility] - 08/19/2024 3:38 PM EDT [...] Fan DO LAB BLOOD ORDERABLES Final Result [facility]
[address] [place] [address], * Type & Screen (08/19/2024 3:02 PM EDT) ABO Type O 08/19/2024 3:51 PM EDT [facility] RH type Positive 08/19/2024 3:51 PM EDT [facility] Antibody Screen Negative 08/19/2024 3:51 PM EDT [facility] T&S Expiration Date 08/22/2024 11:59:59 PM 08/19/2024 3:51 PM EDT [facility] Blood Line / Unknown 08/19/2024 3: 02 PM EDT 08/19/2024 3:15 PM EDT Kt Fan DO BLOOD BANK TEST ORDERABLES Edited Result - Final [facility] LABOR[facility]ORY
[address] [place] [address], documented in this encounter Visit Diagnoses Diagnosis [...] BPA Driven Protocol Open Order & Select [facility] Electrolyte Replacement Protocol Algorithm to [...] documented as of this encounter Care Teams Cloud Operations Engineer Relationship Specialty Start Date End Date Norma Friedman APRN [address] [place] G3 RAFAELA APPIAH [address] PCP - General Family Medicine 05/14/24 documented as of this encounter
--- OUTSIDE RECORDS SUMMARY | 2024-08-20 13:44 | XMS_ITS | Encounter Summary ---
[facility] Address [address] [place] [phone] Care Team Providers Care Engraver Jewelry Name Role Phone IvyKade goldbergdev FERNÁNDEZ Primary Care Provider + [phone] Reason for Visit * Auth/Cert (Routine) Specialty Diagnoses / Procedures Referred By Contac t Referred To Contact Referral ID Status Reason Start Date Expiration Date Visits Re quested Visits Authorized 1 1 Encounter Details Date Type Department Care Team (Late st Contact Info) Description 08/20/2024 1:44 PM EDT Anesthesia Event [facility] END[facility] SU[facility]ES [address] [place] [address] Akash Anguiano MD [address] [place] [address] Liborio Peralta CRNA [address] [place] [address] Anesthesia Record Procedure Summary Procedure Name Responsible [...] oz pur e alcohol) [facility] Utilities Answer Date Recorded In [...] and heating? Not hard at all 05/28/2024 [facility] [place] of Occupat ional Health - Occupational Stress [...] equivalent No 05/28/2024 Preferred Language Citizen Of [place] 05/28/2024 PHQ-2 Answer Date Recorded Patient Health [...] 1:23 PM EDT Polly Lacey RN * [place] Suicide Severity Rating Scale (Screener/Recent Self-Report) Question [...] sounds: normal. 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 Plan discussed with AIRCRAFT NAVIGATOR. CODE STATUS: documented in this encounter Plan of Treatment Upcoming Encounters Date Type Department Care Team (Late st Contact Info) Description 01/20/2025 3:30 PM EST Office Visit [facility] [address] [facility] [address] Robbin Escalante MD [address] [address] documented as of this encounter Procedures Procedure [...] and Staff Patient location during procedure: [place] AIRCRAFT NAVIGATOR/CAA: Junior Zbigniew Jain, DAYNE Indications and Patient [...] documented as of this encounter Care Teams Engraver Jewelry Relationship Specialty Start Date End Date Norma Friedman APRN [address] [place] [address] [place] [id number] PCP - General Family Medicine 05/14/24 documented as of this encounter
--- OUTSIDE RECORDS SUMMARY | 2024-08-29 10:00 | XMS_ITS | Encounter Summary ---
Author Organization [facility] Address [address] [place] [address] Care Team Providers Care Shell Shop Supervisor Name Role Phone IvyKade goldbergjoseseven JOLENE Primary Care Provider + [phone] Reason for Visit * Reason Comments Problem Encounter Details Date Type Department Care Team (Late st Contact Info) Description 08/29/2024 10:00 AM EDT Routine [facility] OBGYN [address] [place] [address] Staci Jain MD [address] [place] [address] [place]: 26w4d Social History Tobacco Use Types Packs/Day Years Used Date Smoking Tobacco: Never Smokeless Tobacco: Never Alcohol Use Standard Drinks/Week Comments Never 0 (1 standard drink = 0.6 oz pur e alcohol) [facility] Utilities Answer Date Recorded In the past 12 months has [employer], gas, oil, or water [employer] threatened to shut off services in your [...] hard at all 05/28/2024 [facility] [place] [facility] Health - Occupational [...] GED or equivalent No 05/28/2024 Preferred Language Luxembourger 05/28/2024 PHQ-2 Answer Date Recorded Patient Health [...] 3:30 PM EST Office Visit [facility] [address] [address] Robbin Escalante MD [address] [address] documented as of this encounter Procedures Procedure [...] 08/30/2024 6:09 AM EDT Performed at: [address] [id number] Affiliate Marketing Coordinator: Kevin Harman MD, Phone: [phone] Patient Fasting: N us Staci Jain MD LAB BLOOD ORDERABLES Final Result [facility] ([facility]) [address] [place] [address], [facility] [address] [place] [address], * (ABNORMAL) Comprehensive Metabolic Panel (08/29/2024 11:05 [...] 11:0 5 AM EDT 08/29/2024 Narrative [facility] (AMBULATORY) - 08/30/2024 6:09 AM EDT Performed at: 01 - [place] [address] [address] [place], [place] [id number] Affiliate Marketing Coordinator: Kevin Harman MD, Phone: [phone] Patient Fasting: N Staci Jain MD LAB BLOOD ORDERABLES Final Result Performing Organization Address City/[facility]/ZIP Co de Phone Number [facility] ([facility]) [address] [place] [address], [place] [phone] [facility] [address] [place] [address], [place] [phone] * (ABNORMAL) POC Urinalysis Dipstick (08/29/2024 10:13 AM EDT) Glucose, UA Negative Negative mg/dL [facility] Protein, POC Trace(A) Negative mg/dL [facility] Urine 08/29/2024 10:1 3 AM EDT us Staci Jain MD POINT OF CARE TEST OR DERABLES Final Result Performing Organization Address City/[facility]/ZIP Co de Phone Number [facility]
[address] [place] [address], documented in this encounter Visit Diagnoses Diagnosis [...] documented as of this encounter Care Teams Shell Shop Supervisor Relationship Specialty Start Date End Date Norma Friedamn APRN [address] [place] G[address] RAFAELA APPIAH [address] PCP - General Family Medicine 05/14/24 documented as of this encounter
--- OUTSIDE RECORDS SUMMARY | 2024-09-23 10:00 | XMS_ITS | Encounter Summary ---
Author Organization [facility] Address [address] [place] [address] Care Team Providers Care Marriage Performer Name Role Phone Norma Friedman JOLENE Primary Care Provider +1- [phone] Reason for Referral * Consultation (Routine) - Closed Specialty Diagnoses / Procedures Referred By Contac t Referred To Contact Cardiology Diagnoses Supervision of high risk , antepartum Cardiac arrhythmia, unspecified cardiac arrhythmia type Liborio Weller MD [address] [facility] [address] [place] [address] Phone: tel: fax: Referral ID Status Reason Start Date Expiration Date V isits Requested Visits Authorized [id number] Closed Specialty Services Required 09/23/2024 03/25/2026 1 1 Encounter Details Date Type Department Care Team ([facility] st Contact Info) Description 09/23/2024 10:00 AM EDT Office Visit Medical Office Building Obstetrics and Gynecology [address] [facility], [address] [place] [address] Liborio Weller MD [address] [facility] 140 [place] [address] Supervision of high risk , [...] more drinks on one occasion? Never 09/23/2024 [place] Depression Scale Answer Date Recorded [place] Depression Scale Total 0 09/23/2024 The thought [...] last week on 09/19. She presented to [facility] for chest pain and palpitations. She [...] 09/25 and has otherwise never seen a archery instructor. She has never seen a rail manager. She also reports during this admission she [...] None N JAGDISH Complications: Potassium (K) deficiency [place] Depression Scale Total: 0 Gynecology History No [...] has a past surgical history that includes [place] tooth extraction (N/A); section, low transverse (N/A); [...] prescription(s): ferosul, potassium chloride cr, prenat mv-min w/xm-idwqkh-ysz, and thiamine. Allergies Allergies[1] Review of Systems [...] Had tachycardia and arrhythmia during admission to [facility] on 09/19 HR to 170s-180s [...] other day Has never been evaluated by archery instructor for salt wasting nephropathy PLAN Has nephrology [...] the patient, and documenting this visit. (Est [id number]) Brandee Pringle MD Obstetrics & Gynecology, PGY-2 [...] Info) Description 10/17/2024 8:30 AM EDT Appointment [facility] Ultrasound [address] [place] [address] 10/17/2024 9:15 AM EDT Routine Medical Office Building Obstetrics and Gynecology [address] [facility], [address] [place] [address] Laury Cruz MD [address] [facility] [address] [place] [address] 10/24/2024 8:00 AM EDT Office Visit [facility] [place] [address] [facility], [address] [place] [address] Nneka Block MD [address] [place] [address] 12/25/2024 1:00 PM EST Office Visit [facility] Nephrology, Bone & Mineral Metabolism [address] [facility], [address] [place] [address] Scheduled Referrals Name Type Priority [...] Ketones, Urine 40(A) Negative mg/dL POCT Specific [place], Urine 1.015 POCT Blood, Urine Negative Negative POCT pH, Urine >=9.0(A) 5.0 to 8.0 POCT Protein, Urine 100(A) Negative mg/dL POCT Urobilinogen, Urine 0.2 0.2, 1 E.U./dL POCT Nitrite, Urine Negative Negative POCT Leukocyte Esterase, Urine Negative Negative Test Strip Lot Number [id number] Test Strip Lot Expiration 07/2025 Urine Urine [...] documented as of this encounter Care Teams Marriage Performer Relationship Specialty Start Date End Date Norma Friedman APRN [address] [place] [address] PCP - General 09/23/24 documented as of this encounter
--- OUTSIDE RECORDS SUMMARY | 2024-09-25 14:20 | XMS_ITS | Encounter Summary ---
Author Organization Healthcare Address [address] [place] [address] Care Team Providers Care [employer] Program Coordinator Name Role Phone Norma Friedman JOLENE Primary Care Provider +1- [phone] Reason for Referral * Consultation (Routine) - Authorized Specialty Diagnoses / Procedures Referred By Tarik pedersen Referred To Contact Diagnoses Hypokalemia Bill Patrick MD [address] [place] [phone] Phone: tel: fax: Referral ID Status Reason Start Date Expiration Date V isits Requested Visits Authorized [id number] Authorized 09/25/2024 03/27/2026 1 1 * Imaging (Routine) - Authorized Specialty Diagnoses / Procedures Referred By Tarik pedersen Referred To Contact Radiology Diagnoses Hypokalemia Procedures US Renal Complete Bill Patrick MD [address] [place] [phone] Phone: tel: fax: Referral ID Status Reason Start Date Expiration Date V isits Requested Visits Authorized [id number] Authorized 09/25/2024 03/27/2026 1 1 Reason for Visit * Reason Comments Consult * Consultation (Routine) - Closed Specialty Diagnoses / Procedures Referred By Tarik pedersen Referred To Contact Nephrology Diagnoses Hypokalemia Liborio Weller MD [address] [address] Phone: tel: fax: [facility] Nephrology, Bone & Mineral Metabolism [address] , [address] [place] [address] Phone: tel: fax: Referral ID Status Reason Start Date Expiration Date V isits Requested Visits Authorized [id number] Closed Specialty Services Required 09/14/2024 03/16/2026 1 1 Encounter Details Date Type Department Care Team (Late st Contact Info) Description 09/25/2024 2:20 PM EDT Office Visit [facility] Nephrology, Bone & Mineral Metabolism [address] , [address] [place] [address] Bill Patrick MD [address] [place] [address] Hypokalemia (Primary Dx) Social History [...] more drinks on one occasion? Never 09/23/2024 [place] Depression Scale Answer Date Recorded [place] Depression Scale Total 0 09/23/2024 The thought [...] 37 weeks andshe did not see a Brand Inspector at that time. Also notes she has [...] Date SECTION, LOW TRANSVERSE N/A section from [facility] DILATION AND CURETTAGE OF UTERUS N/A Dilation and curettage from [facility] WISDOM TOOTH EXTRACTION N/A Oral Surgery Tooth Extraction [place] Tooth from [facility] [3] Family History Problem Relation Name Age [...] mouth 3 times a day.) Prenat MV-Min w/[id number]-[id number]-[id number] ( COMPLETE PO) thiamine (Vitamin B-1) 100 [...] Info) Description 10/17/2024 8:30 AM EDT Appointment [facility] Ultrasound [address] [place] [address] 10/17/2024 9:15 AM EDT Routine Medical Office Building Obstetrics and Gynecology [address] [facility], [address] [place] [address] Laury Cruz MD [address] [place] [address] 10/24/2024 8:00 AM EDT Office Visit [facility] [place] [address], [address] [place] [address] Nneka Block MD [address] [place] [address] 12/25/2024 1:00 PM EST Office Visit [facility] Nephrology, Bone & Mineral Metabolism [address] [facility], [address] [place] [address] Scheduled Orders Name Type Priority [...] Chloride, Urine 25 mmol/L 2:03 PM EDT [facility] Urine Urine specimen obtained by clean catch procedure / Unknown Non-blood Collection / Unknown 09/26/2024 10:07 AM EDT 09/26/2024 10:07 AM EDT us Bill Patrick MD LAB URINE ORDERABLES Final Resul t [facility] [address] [place] [address] * Protein, Random, Urine with Creatinine (09/26/2024 10:03 AM EDT) Protein, Urine 26 mg/dL 09/26/2024 12:08 PM EDT [facility] Creatinine, Urine 199 mg/dL 09/26/2024 12:08 PM EDT [facility] Protein/Creati nine Ratio 0.1 mg/mg Creat 09/26/2024 12:08 PM EDT [facility] Urine Urine specimen obtained by clean catch procedure / Unknown Non-blood Collection / Unknown 09/26/2024 10:03 AM EDT 09/26/2024 10:04 AM EDT us Bill Patrick MD LAB URINE ORDERABLES Final Resul t Performing Organization Address City/[facility] Co de Phone Number [facility] [address] [place] [address] * Potassium, urine, random (09/26/2024 10:02 AM EDT) Potassium, Urine 43 mmol/L 09/26/2024 11:55 AM EDT [facility] Urine Urine specimen obtained by clean catch procedure / Unknown Non-blood Collection / Unknown 09/26/2024 10:02 AM EDT 09/26/2024 10:02 AM EDT us Bill Patrick MD LAB URINE ORDERABLES Final Resul t Performing Organization Address [facility] Co de Phone Number [facility] [address] [place] [address] * Osmolality, urine (09/26/2024 10:02 AM EDT) Osmolality, Urine 404 50 - 1,200 mOsm/kg 09/26/2024 1:48 PM EDT [facility] Urine Urine specimen obtained by clean catch procedure / Unknown Non-blood Collection / Unknown 09/26/2024 10:02 AM EDT 09/26/2024 10:02 AM EDT us Bill Patrick MD LAB URINE ORDERABLES Final Resul t Performing Organization Address City/[facility] Co de Phone Number [facility] [address] [place] [address] * Sodium, urine, random (09/26/2024 10:02 AM EDT) Sodium, Urine 110 mmol/L 09/26/2024 11:55 AM EDT [facility] Urine Urine specimen obtained by clean catch procedure / Unknown Non-blood Collection / Unknown 09/26/2024 10:02 AM EDT 09/26/2024 10:02 AM EDT Bill Patrick MD LAB URINE ORDERABLES Final Resul t [facility] [address] [place] [address] * Antinuclear Antibody (JEFFERY), HEp-2, IgG (09/26/2024 9:32 AM EDT) JEFFERY INTERPRETIVE COMMENT See Note 09/28/2024 5:13 PM EDT [facility] ([employer]) Anti Nuc Ab Screen <1:80 <1:80 09/28/2024 5:13 PM EDT [facility] ([employer]) Blood Venous blood specimen / Unknown Venipuncture / Unknown 09/26/2024 9:32 AM EDT 09/26/2024 9:32 AM EDT Narrative [facility] ([employer]) - 09/28/2024 5:13 PM EDT INTERPRETIVE INFORMATION: JFEFERY Interpretive Comment Presence of antinuclear antibodies (JEFFERY) [...] rings, and cytoplasmic speckled patterns. Performed By: [facility] [address] [place] [address] Job Placement Counselor: Brandon Bell MD, PhD CLIA Number: [id number] Bill Patrick MD LAB BLOOD ORDERABLES Final Resul t [facility] ([employer]) [address] [place] [address] * Rheumatoid factor, plasma (09/26/2024 9:32 AM EDT) Pathologist [facility] Rheumatoid Factor, Plasma <10 <14 IU/mL 09/26/2024 1:49 PM EDT [facility] Blood Venous blood specimen / Unknown Venipuncture / Unknown 09/26/2024 9:32 AM EDT 09/26/2024 9:32 AM EDT Bill Patrick MD LAB BLOOD ORDERABLES Final Resul t [facility] [address] [place] [address] * SSB (LA) (YARA) ANTIBODY, IGG (09/26/2024 9:32 AM EDT) SSB (LA) (YARA) Antibody, IgG 0 0 - 40 AU/mL 09/28/2024 5:47 PM EDT [facility]) Serum Venous blood specimen / Unknown 09/26/2024 9:32 AM EDT 09/26/2024 9:32 AM EDT Narrative [facility]) - 09/28/2024 5:47 PM EDT INTERPRETIVE INFORMATION: [...] (PSS) also have this antibody. Performed By: [facility] [address] [place] [id number] Job Placement Counselor: Brandon Bell MD, PhD CLIA Number: [id number] us Bill Patrick MD LAB BLOOD ORDERABLES Final Resul t [facility] ([employer]) [address] [place] [address] * SSA 52 and 60 (Ro) (YARA) Antibodies, IgG (09/26/2024 9:32 AM EDT) SSA-52 (RO52) (YARA) Antibody, IgG 2 0 - 40 AU/mL 09/28/2024 5:47 PM EDT [facility] ([facility]) SSA-60 (RO60) (YARA) Antibody, IgG 0 0 - 40 AU/mL 09/28/2024 5:47 PM EDT [facility] ([employer]) Serum 09/26/2024 9:32 AM EDT 09/26/2024 9:32 AM EDT Narrative [facility] ([employer]) - 09/28/2024 5:47 PM EDT INTERPRETIVE INFORMATION: [...] AU/mL or Greater .......... Positive Performed By: [facility] [address] [place] [address] Job Placement Counselor: Brandon Bell MD, PhD CLIA Number: [id number] us Bill Patrick MD LAB REF LAB BLOOD AND FLUID ORD Final Result [facility] [address] [place] [address] * (ABNORMAL) Renal function panel (09/26/2024 9:32 AM EDT) Glucose, Plasma 87 74 - 99 mg/dL 09/26/2024 12:24 PM EDT [facility] BUN, Plasma 5(L) 7 - 21 mg/dL 09/26/2024 12:24 PM EDT [facility] Creatinine, Plasma 0.72 0.60 - 1.10 mg/dL 09/26/2024 12:24 PM EDT [facility] BUN/Creatinine Ratio 7 09/26/2024 12:24 PM EDT [facility] Sodium, Plasma 135(L) 136 - 145 mmol/L 09/26/2024 12:24 PM EDT [facility] Potassium, Plasma 3.1(L) 3.6 - 4.9 mmol/L 09/26/2024 12:24 PM EDT [facility] Chloride, Plasma 95(L) 97 - 107 mmol/L 09/26/2024 12:24 PM EDT [facility] CO2, Plasma 26 22 - 29 mmol/L 09/26/2024 12:24 PM EDT [facility] Anion Gap 14 6 - 16 mmol/L 09/26/2024 12:24 PM EDT [facility] Total Calcium, Plasma 9.4 8.9 - 10.2 mg/dL 09/26/2024 12:24 PM EDT [facility] Phosphorus, Plasma 3.5 2.5 - 4.5 mg/dL 09/26/2024 12:24 PM EDT [facility] Albumin, Plasma 3.6 3.5 - 5.2 g/dL 09/26/2024 12:24 PM EDT [facility] eGFRcr 113.4 mL/min/1.7 3m*2 09/26/2024 12:24 PM EDT [facility] Comment:Reported eGFRcr in m L/min/1.73m2 is based the CKD-EPI 2020 equation that does not use a race coefficient. Blood Venous blood specimen / Unknown Venipuncture / Unknown 09/26/2024 9:32 AM EDT 09/26/2024 9:32 AM EDT us Bill Patrick MD LAB BLOOD ORDERABLES Final Resul t Performing Organization Address City/[facility] Co de Phone Number [facility] [address] [place] [address] * (ABNORMAL) Osmolality (09/26/2024 9:32 AM EDT) Osmolality, Serum 273(L) 275 - 295 mOsm/Kg 09/26/2024 2:10 PM EDT [facility] Blood Venous blood specimen / Unknown Venipuncture / Unknown 09/26/2024 9:32 AM EDT 09/26/2024 9:32 AM EDT us Bill Patrick MD LAB BLOOD ORDERABLES Final Resul t Performing Organization Address City/[facility] Co de Phone Number [facility] [address] [place] [address] documented in this encounter Visit Diagnoses Diagnosis Hypokalemia- Primary Hypopotassemia documented in this encounter Additional Health Concerns Assessment Noted Time A fall risk assessment has been complete d for the patient 09/25/2024 3:05 PM EDT A Body Mass Index follow-up plan has been documented for the patient 10/05/2024 8:54 PM EDT documented as of this encounter Care Teams [facility] Program Coordinator Relationship Specialty Start Date End Date Norma Friedman APRN [address] [place] [address] PCP - General 09/23/24 documented as of this encounter
--- OUTSIDE RECORDS SUMMARY | 2024-09-26 08:00 | XMS_ITS | Encounter Summary ---
Author Organization [facility] Address [address] [place] [address] Care Team Providers Care Grinder Outside Diameter Name Role Phone Norma Friedman INTERVENTION NURSE Primary Care Provider +1- [phone] Lizz Trinh RN Unavailable Unavailable Reason for Referral * Consultation (Routine) - Authorized Specialty Diagnoses / Procedures Referred By Tarik pedersen Referred To Contact Diagnoses Palpitations Syncope and collapse Nneka Block MD [address] [place] [phone] Phone: tel: fax: Referral ID Status Reason Start Date Expiration Date V isits Requested Visits Authorized [id number] Authorized 09/26/2024 03/28/2026 1 1 * Cardiac Stress Testing (Routine) - Closed Specialty Diagnoses / Procedures Referred By Contac t Referred To Contact Cardiology Diagnoses Palpitations Syncope and collapse Procedures Adult Patch Monitor - 7 Day Nneka Block MD [address] [place] [phone] Phone: tel: fax: Referral ID Status Reason Start Date Expiration Date Visits Re quested Visits Authorized [id number] Closed 09/26/2024 03/28/2026 1 1 Reason for Visit * Consultation (Routine) - Closed Specialty Diagnoses / Procedures Referred By Contac t Referred To Contact Cardiology Diagnoses Supervision of high risk , antepartum Cardiac arrhythmia, unspecified cardiac arrhythmia type BruleLiborio Preciado MD [address] [address] Phone: tel: fax: Referral ID Status Reason Start Date Expiration Date V isits Requested Visits Authorized [id number] Closed Specialty Services Required 09/23/2024 03/25/2026 1 1 Encounter Details Date Type Department Care Team (Late st Contact Info) Description 09/26/2024 8:00 AM EDT Office Visit [facility] [place] [address] [facility], [address] [place] [address] Nneka Block MD [address] [place] [address] Syncope and collapse (Primary Dx); [...] more drinks on one occasion? Never 09/23/2024 [place] Depression Scale Answer Date Recorded [place] Depression Scale Total 0 09/23/2024 The thought [...] Rate - - Oxygen Saturation 99% 09/26/2024 8:04 AM EDT Inhaled Oxygen Concentration - - Weight 70.3 kg (154 lb 15.7 oz) 09/26/2024 8:04 AM EDT Height 162.6 cm (5' 4 ) 09/26/2024 8:04 AM EDT Body Mass Index 26.6 09/26/2024 8:04 AM EDT documented in this encounter Miscellaneous Notes * Progress Notes - Nneka Block MD - 09/26/2024 8:00 AM EDT [facility]) Problem List #Hypomagnesium and Hypokalemia -- PICC line for infusions # HPI Whitney Presley is a 34 y.o. with a history of GERD, ovarian cysts, with history of low potassium coming in for evaluation as a consult from Dr. Weller and she is currently . Whitney was recently hospitalized 09/19/2024-09/20/2024 and was found to have low potassium and magnesium and had sinus tachycardia. Patient was admitted and monitored on telemetry and received IV potassium and magnesium. She had an echocardiogram that was performed that showed normal biventricular function, and mild mitral regurgitation and mild tricuspid regurgitation. She has a PICC line and has her electrolytes checked frequently and received IV infusion of electrolytes. She states she has been told arrhythmia - but unsure which type. Whitney states her prior pregnancies she had issues with low electrolytes and received IV infusions.This one is different as it has happened earlier than her prior pregnancies. She states she has hadthese issues with every . She also states she has syncope - states she can feel it when itcomes feels a numbness, heart rate goes up, she then feels like veil is coming over her and she loses consciousness, she wakes up and is nauseated and breaks out into a sweat and is then cold. She always feels the symptoms prior to the episodes. It is the same every time. If she is standing she knows to sit or lay down. She denies lower extremity swelling. She has never had a heart monitor. She has not started metoprolol due to concern for her low BP already. She is drinking water with liquid IV. Whitney states prior deliveries she was on telemetry due to low potassium and needing IV potassium. Whitney saw Nephrology yesterday and are concerned with possible disorders causing her to waste her potassium. They did comment that there is limited things they can do at this time due to her being but are running multiple urine electrolytes and labs. Whitney is seeing GI soon due to issues with a hiatal hernia and not tolerating eating and drinking well. Whitney states outside she does not have any of these issues and does well. ROS A 10 point ROS performed with pertinent in HPI. Medical History[1] Surgical History[2] Social History[3] Family History[4] Vitals Visit Vitals BP 90/63 (BP Location: Right arm, Patient Position: Sitting) Pulse 104 Ht 1.626 m (5' 4 ) Wt 70.3 kg (154 lb 15.7 oz) SpO2 99% BMI 26.60 kg/m?? OB Status Smoking Status Never BSA 1.78 m?? Physical Exam Physical Exam Vitals reviewed. Constitutional: Appearance: Normal appearance. Cardiovascular: Rate and Rhythm: Normal rate and regular rhythm. Pulses: Normal pulses. Heart sounds: Normal heart sounds. No murmur heard. Pulmonary: Effort: Pulmonary effort is normal. No respiratory distress. Breath sounds: Normal breath sounds. Skin: General: Skin is warm and dry. Capillary Refill: Capillary refill takes less than 2 seconds. Neurological: Mental Status: She is alert. Diagnostic Testing ECG Normal sinus rhythm with sinus arrhythmia ECHO ECHO 09/20/2024 (OSH) (personally reviewed) Normal LV size and function. LVEF >55%. Normal RV size and function. Trileaflet aortic valve. No aortic stenosis or regurgitation. Grossly normal mitral valve. Mild mitral regurgitation. No mitral stenosis. Grossly normal tricuspid valve. Mild tricuspid regurgitation. Unable to estimate RVSP. Pulmonic valve is not well visualized. No pulmonic stenosis or regurgitation. Assessment/Plan Whitney is a 34 y.o. with a history of GERD, ovarian cysts, with history of low potassium coming in for evaluation currently . Whitney has normal HR and BP in clinic today. She is anxious about starting metoprolol due to her lower blood pressure. She has discussed with with her primary OB and her primary OB is okay with holding off at this time. Discussed with her that with the diagnosis of arrhythmia will perform a heartmonitor to evaluate for arrhythmias. Discussed at this time reviewing ECG and telemetry strips fromhere and from OSH she was in normal sinus rhythm and sinus tachycardia. Discussed with her that herechocardiogram was personally reviewed and she has normal biventricular function, mild MR and TR. Discussed plan from a cardiac standpoint is to perform a heart monitor today to evaluate for arrhythmias. Discussed that abnormal electrolytes and cause rhythm issues in the heart. Whitney states that her electrolytes are being very closely monitored at this time and are being repleted. Discussed the need to monitor this closely and continue to follow. Patient voiced understanding. Whitney's syncopal episodes sound vasovagal in origin as she has prodromal symptoms. Discussed if she has symptoms to sit down or lay down, patient states she is doing this. Whitney would like o hold off on metoprolol till the rhythm issues are further evaluated. Discussed if she were to start this prior to evaluating her at next appointment to trial it when she will be at home with no plans. 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 Nneka Block MD [1] Past Medical History: Diagnosis Date Maternal [...] Date SECTION, LOW TRANSVERSE N/A section from [facility] DILATION AND CURETTAGE OF UTERUS N/A Dilation and curettage from [facility] WISDOM TOOTH EXTRACTION N/A Oral Surgery Tooth Extraction Ransom Tooth from [facility] [3] Social History Socioeconomic History Marital status: Spouse name: Glenda Presley Highest education level: Associate degree: academic program Tobacco Use Smoking status: Never Passive exposure: Never Smokeless tobacco: Never Vaping Use Vaping status: Never Used Substance and Sexual Activity Alcohol use: Never Drug use: Never Sexual activity: Yes Partners: Male Social History Narrative Caffeine use Marital Status: Social Drivers of Health Financial Resource Strain: Low Risk (05/28/2024) Received from [facility] Overall Financial Resource Strain (CARDIA) Difficulty of Paying Living Expenses: Not hard at all Food Insecurity: No Food Insecurity (05/28/2024) Received from [facility] Hunger Vital Sign Within the past 12 months, you worried that your food would run out before you got the money to buymore.: Never true Within the past 12 months, the food you bought just didn't last and you didn't have money to get more.: Never true Transportation Needs: No Transportation Needs (05/28/2024) Received from [facility] PRAPARE - Transportation In the past 12 months, has lack of transportation kept you from medical appointments or from getting medications?: No In the past 12 months, has lack of transportation kept you from meetings, work, or from getting things needed for daily living?: No Physical Activity: Sufficiently Active (05/28/2024) Received from [facility] Exercise Vital Sign On average, how many days per week do you engage in moderate to strenuous exercise (like a brisk walk)?: 5 days On average, how many minutes do you engage in exercise at this level?: 40 min Stress: Stress Concern Present (05/27/2024) Received from [facility] [place] [employer] - Occupational Stress Questionnaire Feeling of Stress : To some extent Social Connections: Not At Risk (05/28/2024) Received from [facility] Family and Community Support If for any reason you need help with day-to-day activities such as bathing, preparing meals, shopping, managing finances, etc., do you get the help you need?: I don't need any help How often do you feel lonely or isolated from those around you?: Sometimes Intimate Partner Violence: Not At Risk (08/19/2024) Received from [facility] Abuse Screen Feels Unsafe at Home or Work/School: no Feels Threatened by Someone: no Does Anyone Try to Keep You From Having Contact with Others or Doing Things Outside Your Home?: no Physical Signs of Abuse Present: no Housing Stability: Not At Risk (08/20/2024) Received from [facility] Housing Stability Current Living Arrangements: home Potentially Unsafe Housing Conditions: none [4] Family History Problem Relation Name Age of Onset Diabetes Mother Diabetes Father Diabetes Paternal Grandmother Conversions - Other Father first degree relative with congenital heart disease Hypertension Mother Hypertension Father Hypertension Other Obesity Mother Obesity Father Obesity Sister Obesity Other Thyroid disease Mother Thyroid disease Father Thyroid disease Sister Hyperlipidemia Mother Hyperlipidemia Father Hyperlipidemia Other Conversions - Other Other Known health problems: none documented in this encounter Plan of Treatment Upcoming Encounters Date Type Department Care Team (Late st Contact Info) Description 10/17/2024 8:30 AM EDT Appointment [facility] Ul[facility]ound [address] [place] [address] 10/17/2024 9:15 AM EDT Routine Medical Office Building Obstetrics and Gynecology [address] [facility], [address] [place] [address] Laury Cruz MD [address] [facility] [address] [place] [address] 10/24/2024 8:00 AM EDT Office Visit [facility] [place] [address] [facility], [address] [place] [address] Nneka Block MD [address] [place] [address] 12/25/2024 1:00 PM EST Office Visit [facility] [address] [facility], [address] [place] [address] Pending Results Name Type Priority Associated Diagnoses Date /Time Adult Patch Monitor - 7 Day Cardiac [...] unspecified type (CMS/HCC) documented in this encounter Results * ECG Adult (Now - Performed in your clinic) (09/26/2024 8:21 AM EDT) EKG DIAGNOSIS CLASS Normal MUSE ECG Ventricular Rate 84 BPM MUSE ECG Atrial Rate 84 BPM MUSE ECG WY Interval 148 ms MUSE ECG QRSD Interval 74 ms MUSE ECG QT Interval 374 ms MUSE ECG QTC Interval 441 ms MUSE ECG P [place] 60 degrees MUSE ECG R [place] 36 degrees MUSE ECG T Wave [place] 55 degrees MUSE ECG Diagnosis Normal sinus rhythm with sinus arrhythmia MUSE ECG Diagnosis Normal ECG MUSE ECG Diagnosis MUSE ECG Diagnosis Confirmed by Abad South ([id number]) on 09/26/2024 12:13:59 PM MUSE ECG 09/26/2024 8:21 AM EDT 09/26/2024 12:13 PM EDT us Nneka Block MD ECG ORDERABLES Final Resu lt MUSE ECG documented in this encounter Visit Diagnoses Diagnosis Syncope and collapse- Primary Atrial fibrillation, unspecified type (CMS/HCC) Palpitations documented in this encounter Additional Health Concerns Assessment Noted Time A fall risk assessment has been complete d for the patient 09/26/2024 8:15 AM EDT A Body Mass Index follow-up plan has been documented for the patient 09/27/2024 10:22 AM EDT documented as of this encounter Care Teams Grinder Outside Diameter Relationship Specialty Start Date End Date Norma Friedman APRN [address] [place] [id number] PCP - General 09/23/24 Lizz Trinh, RN [facility] Registered Nurse Cardiology 09/26/24 documented as of this encounter
--- OUTSIDE RECORDS SUMMARY | 2024-09-26 09:06 | XMS_ITS | Encounter Summary ---
Author Organization [facility] Address [address] [place] [address] Care Team Providers Care Channel Layer Name Role Phone Elder Kadedev Coy LD TEACHER Primary Care Provider +1- [phone] Lizz Trinh RN Unavailable Unavailable Reason for Referral * Cardiac Stress Testing (Routine) - Closed Specialty Diagnoses / Procedures Referred By Tarik pedersen Referred To Contact Cardiology Diagnoses Palpitations Syncope and collapse Procedures Adult Patch Monitor - 7 Day Nneka Block MD [address] [place] [address] Phone: tel: fax: Referral ID Status Reason Start Date Expiration Date Visits Re quested Visits Authorized [id number] Closed 09/26/2024 03/28/2026 1 1 Reason for Visit * Cardiac Stress Testing (Routine) - Closed Specialty Diagnoses / Procedures Referred By Tarik pedersen Referred To Contact Cardiology Diagnoses Palpitations Syncope and collapse Procedures Adult Patch Monitor - 7 Day Nneka Block MD [address] [place] [address] Phone: tel: fax: Referral ID Status Reason Start Date Expiration Date Visits Re quested Visits Authorized [id number] Closed 09/26/2024 03/28/2026 1 1 Encounter Details Date Type Department Care Team (Latest Contact Info) Description 09/26/2024 9:06 AM EDT - 09/26/2024 11:59 PM EDT Hospital Encounter Medical Office Building Cardiac Diagnostic Testing Medical Office Building Echo Lab [address] [facility], [address] [place] [address] Palpitations; Syncope and collapse Discharge [...] more drinks on one occasion? Never 09/23/2024 [place] Depression Scale Answer Date Recorded [place] Depression Scale Total 0 09/23/2024 The thought [...] 2 times a day. 09/02/2024 Prenat MV-Min w/Mz-Pgpbau-CAD ( COMPLETE PO) 12/25/2018 thiamine (Vitamin B-1) 100 MG tablet Take 1 tablet by mouth 1 time each day. 09/01/2024 documented as of this encounter Plan of Treatment Upcoming Encounters Date Type Department Care Team ([facility] st Contact Info) Description 10/17/2024 8:30 AM EDT Appointment [facility] Ultrasound [address] [place] [address] 10/17/2024 9:15 AM EDT Routine Medical Office Building Obstetrics and Gynecology [address] [facility], [address] [place] [address] Laury Cruz MD [address] [facility] [address] [place] [address] 10/24/2024 8:00 AM EDT Office Visit [facility] [address] [facility], [address] [place] [address] Nneka Block MD [address] [place] [address] 12/25/2024 1:00 PM EST Office Visit [facility] Nephrology, Bone & Mineral Metabolism [address] [facility], [address] [place] [address] Pending Results Name Type Priority [...] as of this encounter Care Teams Channel Layer Relationship Specialty Start Date End Date Norma Friedman APRN [address] [facility] [place] [address] PCP - General 09/23/24 Lizz Trinh, RN [facility] Registered Nurse Cardiology 09/26/24 documented as of this encounter
--- OUTSIDE RECORDS SUMMARY | 2024-10-12 11:27 | XMS_ITS | Encounter Summary ---
[facility] [address] [place] [address] Care Team Providers Care District Court Justice Name Role Phone Ivyashlyn Norma FERNÁNDEZ Primary Care Provider + [phone] Encounter Details Date Type Department Care Team (Late st Contact Info) Description 08/27/2024 Telephone [facility] OBGYN [address] [place] [address] Staci Jain MD [address] [facility] [address] [place] [address] Social History Tobacco Use Types Packs/Day Years Used Date Smoking Tobacco: Never Smokeless Tobacco: Never Alcohol Use Standard Drinks/Week Comments Never 0 (1 standard drink = 0.6 oz pur e alcohol) [facility] Utilities Answer Date Recorded In the past 12 months has [employer], oil, or water [employer] threatened to shut off services in your [...] heating? Not hard at all 05/28/2024 [facility] [place] of Occupat ional Health - Occupational Stress [...] Visit [facility] GASTROENTEROLOGY [address] [phone] Robbin Escalante MD [address] [address] documented as of this encounter Visit Diagnoses Diagnosis History of hypokalemia- Primary documented in this encounter Additional Health Concerns Assessment Noted Time PHQ-2 Depression Total Score: 2 05/28/19 25 4:39 PM EDT documented as of this encounter Care Teams District Court Justice Relationship Specialty Start Date End Date Norma Friedman APRN [address] [place]FAEL[place] APPIAH [address] PCP - General Family Medicine 05/14/24 documented as of this encounter
--- OUTSIDE RECORDS SUMMARY | 2024-10-12 11:27 | XMS_ITS | Encounter Summary ---
[facility] [address] [place] [id number] Care Team Providers Care Director Of Research And Development Name Role Phone Ivyashlyn Valentinoseven JOLENE Primary Care Provider + [phone] Encounter Details Date Type Department Care Team (Late st Contact Info) Description 06/26/2024 Results Follow-Up [facility] OBGYN [address] [address] Koby Roberts MD [address] [place] [address] Social History Tobacco Use Types Packs/Day Years Used Date Smoking Tobacco: Never Smokeless Tobacco: Never Alcohol Use Standard Drinks/Week Comments Never 0 (1 standard drink = 0.6 oz pur e alcohol) [facility] Utilities Answer Date Recorded In the past 12 months has [employer], gas, oil, or water [employer] threatened to shut off services in your [...] and heating? Not hard at all 05/28/2024 [facility] [place] of Occupat ional Health - Occupational Stress [...] GED or equivalent No 05/28/2024 Preferred Language Fijian 05/28/2024 PHQ-2 Answer Date Recorded Patient Health [...] [facility] GASTROENTEROLOGY [address] [address] Robbin Escalante MD [address] [address] documented as of this encounter Visit Diagnoses Not on filedocumented in this encounter Additional Health Concerns Assessment Noted Time PHQ-2 Depression Total Score: 2 05/28/19 25 4:39 PM EDT documented as of this encounter Care Teams Director Of Research And Development Relationship Specialty Start Date End Date Norma Friedman APRN [address] [place] [place]FAEL[place] APPIAH [address] PCP - General Family Medicine 05/14/24 documented as of this encounter
--- OUTSIDE RECORDS SUMMARY | 2024-10-12 11:27 | XMS_ITS | Encounter Summary ---
[facility] [address] [place] [address] Care Team Providers Care Yarn Comber Name Role Phone Norma Friedman APRN Primary Care Provider + [phone] Encounter Details Date Type Department Care Team (Late st Contact Info) Description 08/19/2024 Telephone [facility] OBGYN [address] [place] [address] Jacey Mathews, HAND WORKER [address] [facility] [address] [place] [address] Social History Tobacco Use Types Packs/Day Years Used Date Smoking Tobacco: Never Smokeless Tobacco: Never Alcohol Use Standard Drinks/Week Comments Never 0 (1 standard drink = 0.6 oz pur e alcohol) [facility] Utilities Answer Date Recorded In the past 12 months has [employer], [employer], oil, or water [employer] threatened to shut off services in your [...] and heating? Not hard at all 05/28/2024 [facility] of Occupat ional [facility] - Occupational Stress Questionnaire Answer [...] GED or equivalent No 05/28/2024 Preferred Language Cypriot 05/28/2024 PHQ-2 Answer Date Recorded Patient Health [...] Visit [facility] GASTROENTEROLOGY [address] [address] Robbin Escalante MD [address] [address] documented as of this encounter Visit Diagnoses Not on filedocumented in this encounter Additional Health Concerns Assessment Noted Time PHQ-2 Depression Total Score: 2 05/28/19 25 4:39 PM EDT documented as of this encounter Care Teams Yarn Comber Relationship Specialty Start Date End Date Norma Friedman APRN [address] [place] [place]FA[place] APPIAH [address] PCP - General Family Medicine 05/14/24 documented as of this encounter
--- OUTSIDE RECORDS SUMMARY | 2024-10-12 11:27 | XMS_ITS | Encounter Summary ---
[facility] Address [address] [place] [id number] Care Team Providers Care Car Installations Supervisor Name Role Phone IvyKade goldbergjoseseven JOLENE Primary Care Provider + [phone] Encounter Details Date Type Department Care Team (Late st Contact Info) Description 09/26/2024 Documentation [facility] [address] [place] [phone] Christy Zabala, RN Social History Tobacco Use Types Packs/Day Years Used Date Smoking Tobacco: Never Smokeless Tobacco: Never Alcohol Use Standard Drinks/Week Comments Never 0 (1 standard drink = 0.6 oz pur e alcohol) [facility] Utilities Answer Date Recorded In [...] and heating? Not hard at all 05/28/2024 [facility] [place] of Occupat ional Health - Occupational Stress [...] GED or equivalent No 05/28/2024 Preferred Language Palestinian 05/28/2024 PHQ-2 Answer Date Recorded Patient Health [...] Review of chart reveals patient [facility] to [facility] to continue care. Will plan to review chart around [facility]C for delivery information. documented in this encounter Plan of Treatment Upcoming Encounters Date Type Department Care Team (Late st Contact Info) Description 01/20/2025 3:30 PM EST Office Visit [facility] GASTROENTEROLOGY [address] [phone] Robbin Escalante MD [address] [address] documented as of this encounter Visit Diagnoses Not on filedocumented in this encounter Additional Health Concerns Assessment Noted Time PHQ-2 Depression Total Score: 2 05/28/19 25 4:39 PM EDT documented as of this encounter Care Teams Car Installations Supervisor Relationship Specialty Start Date End Date Norma Friedman APRN [address] [place] [address] [place] APPIAH [address] PCP - General Family Medicine 05/14/24 documented as of this encounter
--- OUTSIDE RECORDS SUMMARY | 2024-10-12 11:27 | XMS_ITS ---
Author Organization [facility] Address [address] [place] [address] Care Team Providers Care Supervisor Sewing Room Name Role Phone Unavailable Primary Care Provider Unavailabl e Transplant Episode Kidney Potential Donor [facility] ([place], [place]) - [facility] Referred on 05/03/2022 Marked as Deferred on 05/04/2022 Reason: Other Kidney CoordinatorNadine Augustin R.N. Phone: N/A Fax: N/A Email: N/A Care Team Name Role Phone Fax Email Nadine Augustin R.N. Kidney Coordinator N/A N/A N/A Events Pre-Donation Referred: 05/03/2022
--- OUTSIDE RECORDS SUMMARY | 2024-10-12 11:27 | XMS_ITS | Encounter Summary ---
[facility] [address] [place] [id number] Care Team Providers Care Ocean Biologist Name Role Phone Ivyashlyn Norma FERNÁNDEZ Primary Care Provider + [phone] Encounter Details Date Type Department Care Team (Late st Contact Info) Description 09/02/2024 Telephone [facility] OBGYN [address] [address] Staci Jain MD [address] [place] [id number] Social History Tobacco Use Types Packs/Day Years Used Date Smoking Tobacco: Never Smokeless Tobacco: Never Alcohol Use Standard Drinks/Week Comments Never 0 (1 standard drink = 0.6 oz pur e alcohol) [facility] Utilities Answer Date Recorded In the past 12 months has [employer], [employer], oil, or water [employer] threatened to shut off services in [...] heating? Not hard at all 05/28/2024 [facility] of Occupat ional Health - [...] GED or equivalent No 05/28/2024 Preferred Language British 05/28/2024 PHQ-2 Answer Date Recorded Patient Health [...] PM EDT She just got d/c'd from [facility] 2 hours ago and they gave her a total 10 MLE of K+ and 3 units of Mag and 2 liters of LR. She has decided to transfer care to [facility] as it iscloser to her like 15 min away. She wants you (Dr. Jain) to know this has nothing to you but rather the nurses and superannuation funds manager doctor did not relay the labs to you in a faster fashion. She said you can call her if you want and she is not angry. Dr. Jain was notified. * Telephone Encounter - Frederick Gruber RN - 09/02/2024 3:10 PM EDT [employer] message sent to the pt regarding outpt infusion apt tomorrow at [place]. documented in this encounter Plan of Treatment Upcoming Encounters Date Type Department Care Team (Late st Contact Info) Description 01/20/2025 3:30 PM EST Office Visit [facility] GASTROENTEROLOGY [address] [place] [address] [place] [address] Robbin Escalante MD [address] [facility] [address] [place] [address] documented as of this encounter Visit Diagnoses Not on filedocumented in this encounter Additional Health Concerns Assessment Noted Time PHQ-2 Depression Total Score: 2 05/28/19 25 4:39 PM EDT documented as of this encounter Care Teams Ocean Biologist Relationship Specialty Start Date End Date Norma Friedman APRN [address] [place] [address] [place] [address] PCP - General Family Medicine 05/14/24 documented as of this encounter
--- OUTSIDE RECORDS SUMMARY | 2024-10-12 11:27 | XMS_ITS | Clinical Summary ---
Author Organization [facility] Address [address] [place] [address] Care Team Providers Care Warehouse Order Selector Name Role Phone Unavailable Primary Care Provider Unavailabl e Source Comments [facility] is fully rolled out with thefollowing exceptions:General Clinical Research [facility] Social History Tobacco Use Types Packs/Day [...] IMMUNIZATION (1 - 3-dose SCDM series) 2018 AMB SEASONAL FLU VACCINE (#1) 10/07/2024 COVID-19 Vaccine (1 - 2023-2 5 season) 2024 HIB IMMUNIZATION Aged Out No longer e [...]
--- OUTSIDE RECORDS SUMMARY | 2024-10-12 11:27 | XMS_ITS | Encounter Summary ---
Author Organization [facility] Address [address] [place] [address] Care Team Providers Care Furnace Unloader Name Role Phone Elder Kadedev Coy APRN Primary Care Provider [phone]- [phone] Lizz Trinh RN Unavailable Unavailable Reason for Referral * Consultation (Routine) - Authorized Specialty Diagnoses / Procedures Referred By Tarik pedersen Referred To Contact Nephrology Diagnoses History of proteinuria syndrome care, subsequent , second trimester Staci Jain MD [address] [address] Phone: tel: fax: [facility] Nephrology, Bone & Mineral Metabolism [address], [address] [place] [address] Phone: tel: fax: Referral ID Status Reason Start Date Expiration Date Visits Requested Visits Authorized [id number] Authorized Specialty Services Required 07/22/2024 01/21/2026 1 1 Encounter Details Date Type Department Care Team (Late st Contact Info) Description 07/22/2024 Community Orders Community Practice [address] [place] [address] Staci Jain MD [address] [place] [address] History of proteinuria syndrome (Primary Dx); care, [...] Info) Description 10/17/2024 8:30 AM EDT Appointment [facility] Ultrasound [address] [place] [address] 10/17/2024 9:15 AM EDT Routine Medical Office Building Obstetrics and Gynecology [address], [address] [place] [address] Laury Cruz MD [address] [facility] [address] [place] [address] 10/24/2024 8:00 AM EDT Office Visit [facility] [place] [address], [address] [place] [address] Nneka Block MD [address] [place] [address] 12/25/2024 1:00 PM EST Office Visit [facility] Nephrology, Bone & Mineral Metabolism [address], [address] [place] [address] Scheduled Referrals Name Type Priority Associated Diagnoses Orde r Schedule Ambulatory referral to Nephrology Outpatient Referral Routine History of proteinuria syndrome care, subsequent , second trimester Expected: 07/22/2024 (Approximate), Expires: 01/23/2026 documented as of this encounter Visit Diagnoses Diagnosis History of proteinuria syndrome- Primary care, subsequent , second trimester documented in this encounter Care Teams Furnace Unloader Relationship Specialty Start Date End Date Norma Friedman APRN [address] [place] [address] PCP - General 09/23/24 Lizz Trinh, RN [facility] Registered Nurse Cardiology 09/26/24 documented as of this encounter
--- OUTSIDE RECORDS SUMMARY | 2024-10-12 11:27 | XMS_ITS | Encounter Summary ---
Author Organization [facility] Address [address] [place] [address] Care Team Providers Care Telescope Maintenance Name Role Phone Norma Friedman JOLENE Primary Care Provider +[phone]- [phone] Lizz Trinh RN Unavailable Unavailable Encounter Details Date Type Department Care Team (Late Contact Info) Description 07/22/2024 [facility] [address] [place] [address] Sandy Cardenas MD [address] [facility] [address] [place] [address] Social History Tobacco Use Types Packs/Day Years [...] 8:30 AM EDT Appointment [facility] Ultrasound [address] [place] [address] 10/17/2024 9:15 AM EDT Routine Medical Office Building Obstetrics and Gynecology [address] [facility], [address] [place] [address] Laury Cruz MD [address] [facility] [address] [place] [address] 10/24/2024 8:00 AM EDT Office Visit [facility] [place] [address] [facility], [address] [place] [address] Nneka Block MD [address] [place] [address] 12/25/2024 1:00 PM EST Office Visit [facility] Nephrology, Bone & Mineral Metabolism [address] [facility], [address] [place] [address] documented as of this encounter Visit Diagnoses Not on filedocumented in this encounter Care Teams Telescope Maintenance Relationship Specialty Start Date End Date Norma Friedman APRN [address] [place] [address] PCP - General 09/23/24 Lizz Trinh, RN [facility] Registered Nurse Cardiology 09/26/24 documented as of this encounter
--- OUTSIDE RECORDS SUMMARY | 2024-10-12 11:27 | XMS_ITS ---
Author Organization [facility] Address [address] [place] [address] Care Team Providers Care Foam Cutting Supervisor Name Role Phone Norma Friedman APRN Primary Care Provider Motherhood Connection Status:Engaged (Active) Start date:05/23/2024 Enrollment date:05/23/2024 Case Team Name Relationship Phone Bindu Castellon RN Nurse Navigator Christy Zabala RN(Responsible Staff) Nurse Navig ator Continued Care and Services Coordination
--- OUTSIDE RECORDS SUMMARY | 2024-10-12 11:27 | XMS_ITS | Encounter Summary ---
[facility] [address] [place] [phone] Care Team Providers Care Black Powder Glazing Operator Name Role Phone IvyKade goldbergjoseseven JOLENE Primary Care Provider + [phone] Encounter Details Date Type Department Care Team (Late st Contact Info) Description 09/03/2024 Results Follow-Up [facility] OBGYN [address] [place] [address] Staci Jain MD [address] [facility] [address] [place] [address] Social History Tobacco Use Types Packs/Day Years Used Date Smoking Tobacco: Never Smokeless Tobacco: Never Alcohol Use Standard Drinks/Week Comments Never 0 (1 standard drink = 0.6 oz pur e alcohol) [facility] Utilities Answer Date Recorded In the past 12 months has [employer], gas, oil, or water [employer] threatened to shut off services in your [...] [facility] GASTR[facility] [address] [address] Robbin Escalante MD [address] [address] documented as of this encounter Visit Diagnoses Not on filedocumented in this encounter Additional Health Concerns Assessment Noted Time PHQ-2 Depression Total Score: 2 05/28/19 4:39 PM EDT documented as of this encounter Care Teams Black Powder Glazing Operator Relationship Specialty Start Date End Date Norma Friedman APRN [address] [place] [address] [place] [address] PCP - General Family Medicine 05/14/24 documented as of this encounter
--- OUTSIDE RECORDS SUMMARY | 2024-10-12 11:27 | XMS_ITS | Encounter Summary ---
[facility] [address] [place] [address] Care Team Providers Care Compliance And Control Analyst Name Role Phone Elder Norma FERNÁNDEZ Primary Care Provider + [phone] Encounter Details Date Type Department Care Team (Latest Contact Info) Description 08/19/2024 Travel Social History Tobacco Use Types Packs/Day Years Used Date Smoking Tobacco: Never Smokeless Tobacco: Never Alcohol Use Standard Drinks/Week Comments Never 0 (1 standard drink = 0.6 oz pur e alcohol) [facility] Utilities Answer Date Recorded In the past 12 months has [employer] electric, gas, oil, or water company [...] and heating? Not hard at all 05/28/2024 [facility] [place] of Occupat ional Health - Occupational [...] 2:34 PM EDT Nneka Cross RN * [place] Suicide Severity Rating Scale (Screener/Recent Self-Report) Question Answer Date of Assessment Author 6. Suicidal Behavior (Lifetime) No 2:34 PM EDT Nneka Cross RN documented as of this encounter Plan of Treatment Upcoming Encounters Date Type Department Care Team (Late st Contact Info) Description 01/20/2025 3:30 PM EST Office Visit [facility] GASTR[facility]ENTEROLOGY [address] [address] Robbin Escalante MD [address] [address] documented as of this encounter Visit Diagnoses Not on filedocumented in this encounter Additional Health Concerns Assessment Noted Time PHQ-2 Depression Total Score: 2 05/28/19 25 4:39 PM EDT documented as of this encounter Care Teams Compliance And Control Analyst Relationship Specialty Start Date End Date Norma Friedman APRN [address] [place] [address] [place] [address] PCP - General Family Medicine 05/14/24 documented as of this encounter
--- OUTSIDE RECORDS SUMMARY | 2024-10-12 11:27 | XMS_ITS | Clinical Summary ---
Author Organization [facility] Address [address] [place] [address] Care Team Providers Care Boiler Service Technician Name Role Phone Norma Friedman APRN Primary Care Provider + [phone] Allergies Active Allergy Reactions Criticality Noted Date [...] Date Type Department Care Team Description 5 Telephone [facility] MATERNAL MEDICINE [address] [facility] [place] [address] [place] [address] Lyudmila Germain, housing court judge Only 5 Documentation [facility] DELIVERY [address] [place] [address] Christy Zabala RN 5 Results Follow-Up [facility] OBGYN [address] [place] [address] Rob Wharton MD 5 Telephone [facility] [address] [facility] [address] [place] [address] Rob Wharton MD 5 10:00 AM EDT Routine [facility] [place] [address] Rob Wharton MD GA: 26w4d 5 Travel 5 Telephone [facility] OBGYN [address] [facility] [address] [place] [phone] Rob Wharton MD 5 Telephone [facility] [place] [address] Rob Wharton MD 5 1:44 PM EDT Anesthesia Event [facility] [address] [place] [address] Akash Anguiano MD Lanham, John, CRNA 5 1:33 PM EDT - 5 2:05 PM EDT Surgery [facility] [address] [facility] [place] [address] Blu Alvarado MD ESOPHAGOGASTRODUODENOSCOPY [36445 (CPT )] 5 1:59 PM EDT - 5 4:28 PM EDT Hospital Encounter [facility] ANTEPARTUM [address] [place] [address] Rob Wharton MD Brunner, Mark I, MD Dysphagia, unspecified type (Primary Dx) Discharge Disposition: Home or Self Care 5 10:15 AM EDT Routine [facility] OBGYN [address] [place] [address] Jacey Mathews, DREDGE LEVER OPERATOR GA: 25w 5 Telephone [facility] OBGYN [address] [place] [address] Jacey Mathews, DREDGE LEVER OPERATOR 5 Travel 5 Patient Outreach [facility] DEL[facility] [address] [place] [address] Christy Zabala RN 5 9:10 AM EDT Routine [facility] OBGYN [address] [facility] [address] [place] [address] Rob Wharton MD GA: 21w 5 8:00 AM EDT Office Visit [facility] MATERNAL MEDICINE 17[address] [facility] [address] [place] [phone] Sebastian Larsen MD History of prior with small for gestational age (Primary Dx) 5 7:44 AM EDT - 5 11:59 PM EDT Hospital Encounter [facility] US PER DIAG CTR [address] [place] [address] Kelly Delgado, DREDGE LEVER OPERATOR care, antepartum, unspecified ; High risk [...] at all 05/28/2024 [facility] of Occupat ional Health - Occupational Stress [...] Visit [facility] GASTROENTEROLOGY [address] [facility] [address] [place] [address] Robbin Escalante MD [address] [facility] [address] [place] [address] Health Maintenance Due Date Last [...] 08/20/2024 1:55 PM EDT Dysphagia, unspecified type CT ESOPHAGOGASTRODUODENOSCOP Y TRANSORAL DIAGNOSTIC 08/20/2024 1:44 PM [...] AM EDT Multigravida in second trimester [facility] DI[facility]NOSTIC CENTER Routine 07/22/2024 9:10 [...] - 08/30/2024 6:09 AM EDT Performed at: [address] [place] [id number] Manager It Training: Kevin Harman MD, Phone: [phone] Patient Fasting: N Rob Wharton MD LAB BLOOD ORDERABLES Final Result [facility] (AMBULATORY) [address] [place] [address], [facility] [address] [place] [address], [place] [phone] * (ABNORMAL) Comprehensive Metabolic Panel (08/29/2024 11:05 AM EDT) Only the most recent of2 resultswithin the time period is included. [facility] Glucose 72 65 - 99 mg/dL [...] - 08/30/2024 6:09 AM EDT Performed at: [address] [place] [id number] Manager It Training: Kevin Harman MD, Phone: [phone] Patient Fasting: N us Rob Wharton MD LAB BLOOD ORDERABLES Final Result [facility] (AMBULATORY) [address] [place] [address], [facility] [address] [place] [address], [place] [phone] * (ABNORMAL) POC Urinalysis Dipstick (08/29/2024 10:13 AM EDT) Only the most recent of2 resultswithin the time period is included. Glucose, UA Negative Negative mg/dL [facility] Protein, POC Trace(A) Negative mg/dL [facility] Urine 08/29/2024 10:1 3 AM EDT Rob Wharton MD POINT OF CARE TEST OR DERABLES Final Result [facility]
[address] [place] [address], [place] [phone] * BH AN ETT AIRWAY (08/20/2024 2:02 [...] symmetric chest rise and fall Liborio Peralta DIRECTOR OF CATERING ANESTHESIA ORDERABLES Final Res ult * Tissue Pathology Exam (08/20/2024 1:55 PM EDT) Case Report Surgical Pathology Report Case: [id number] Authorizing Provider: Blu Alvarado MD Collected: 08/20/2024 01:55 PM Ordering Location: [facility] Received: 08/20/2024 02:14 PM ENDO SUITES Pathologist: Khalida Rhoades DO Specimen: Gastric, Antrum, antrum bx for path 08/22/2024 9:18 AM EDT [facility] Clinical Information Dysphagia, unspecified type 08/22/2024 9:18 AM EDT [facility] Final Diagnosis Stomach, antrum, biopsy: 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 pylori is negative (no organisms are identified) Negative for intestinal metaplasia, dysplasia, or malignancy 08/22/2024 9:18 AM EDT [facility] at 0918 EDT Gross Description 1. Gastric, Antrum. Received in formalin labeled antrum biopsy is a 0.4 x 0.2 x 0.2 cm pink-see soft tissue fragment submitted entirely in a single cassette. HDM 08/22/2024 9:18 AM EDT [facility] Microscopic Description The slides are reviewed and demonstrate histopathologic features supporting the above rendered diagnosis. 08/22/2024 9:18 AM EDT [facility] Tissue Pyloric antrum structure / Unknown 08/20/2024 1:55 PM EDT 08/20/2024 2:14 PM EDT us Blu Alvarado MD PATHOLOGY/CYTOLOGY ORDERABLES Final Result [facility]
[address] [place] [address], * Upper GI Endoscopy (08/20/2024 1:09 PM EDT) us Blu Alvarado MD INTERFACE NEEDS Final Result * (ABNORMAL) Basic Metabolic Panel (08/20/2024 5:25 AM EDT) Glucose 84 65 - 99 mg/dL 08/20/2024 6:13 AM EDT [facility] BUN 2.3(L) 6.0 - 20.0 mg/dL 08/20/2024 6:13 AM EDT [facility] Creatinine 0.51(L) 0.57 - 1.00 mg/dL 08/20/2024 6:13 AM EDT [facility] Sodium 139 136 - 145 mmol/L 08/20/2024 6:13 AM EDT [facility] Potassium 3.5 3.5 - 5.2 mmol/L 08/20/2024 6:13 AM EDT [facility] Chloride 109(H) 98 - 107 mmol/L 08/20/2024 6:13 AM EDT [facility] CO2 23.5 22.0 - 29.0 mmol/L 08/20/2024 6:13 AM EDT [facility] Calcium 7.8(L) 8.6 - 10.5 mg/dL 08/20/2024 6:13 AM EDT [facility] BUN/Creatinine Ratio 4.5(L) 7.0 - 25.0 08/20/2024 6:13 AM EDT [facility] Anion Gap 6.5 5.0 - 15.0 mmol/L 08/20/2024 6:13 AM EDT [facility] eGFR 126.6 >60.0 mL/min/1.7 3 08/20/2024 6:13 AM EDT [facility] Blood Venipuncture / Unknown 08/20/2024 5:25 AM EDT 08/20/2024 5:46 AM EDT Narrative [facility] - 08/20/2024 6:13 AM EDT GFR [...] Final Resu lt Performing Organization Address City/[facility] Co de Phone Number [facility]
[address] [place] [address], * (ABNORMAL) Potassium (08/19/2024 8:53 PM EDT) Potassium 2.7(L) 3.5 - 5.2 mmol/L 08/19/2024 9:20 PM EDT [facility] Blood Venipuncture / Unknown 08/19/2024 8:53 PM EDT 08/19/2024 9:04 PM EDT Kt Fan DO LAB BLOOD ORDERABLES Final Result Performing Organization Address [facility] Co de Phone Number [facility]
[address] [place] [address], [place] [phone] * ABO RH Specimen Verification (08/19/2024 4:34 PM EDT) ABO Type O 08/19/2024 7:39 PM EDT [facility] RH type Positive 08/19/2024 7:39 PM EDT [facility] Blood Venipuncture / Unknown 08/19/2024 4:34 PM EDT 08/19/2024 4:53 PM EDT Rob Wharton MD BLOOD BANK TEST ORDER FRANCO Final Result [facility]
[address] [place] [address], * On license of [facility] (08/19/2024 3:25 PM EDT) Only the most recent of2 resultswithin the time period is included. Anatomical Region Laterality Modality Ultrasound 08/19/2024 3:09 PM EDT Narrative 08/19/2024 4:54 PM EDT PAT NAME: CAROLE GIRARD MED REC#: [id number] DA: [id number] PAT GEND: F PAT TYPE: E EXAM TRAVIS: [id number] REF PHYS ROB WHARTON Comparison Studies The [...] EFW (oz) 9 oz EFW by: Hadlock ([id number]) Extended Cav. septi pel. tr 4.7 mm Supervisor Belt And Link Assembly 3.8 mm CM 7.5 mm 84% Nicolaides [...] Heart / Thorax 3-vessel view: Appears normal 5-edimxi-rjbsomt view: Appears normal Stomach: Appears normal Kidneys: [...] in 4wks for growth. Coding ======= Description: 81157-65 Follow Up Nuclear Worker Technician: RT Annetta Hartmann , [facility] Physician: Jo Chappell MD Electronically signed by: Jo Chappell MD at: 16:54 Procedure Note Jo Chappell MD - 08/19/2024 PAT NAME: CAROLE GIRARD MED REC#: [id number] DA: 1990 PAT GEND: F PAT TYPE: E EXAM TRAVIS: [id number] REF PHYS ROB WHARTON Comparison Studies The findings of this study are compared to the prior ultrasound studydated 07/22/24 Patient Status Inpatient Indication ======== History of c/s x1. History of . Vaginal bleeding. Maternal Assessment Cmzoug662 cm Height (ft)5 ft Height (in)4 in Pnwthc36 kg Weight (lb)158 lb BMI27.31 kg/m Method ======= Transabdominal ultrasound examination. View: Limited by patient bodyhabitus ========= Love . Number of fetuses: 1 Dating ====== Method of dating:based on stated DUSTY GA by prior [id number] w + 1 d DUSTY by prior [...] Hadlock Femur44.9 mm 24w 6d 27% Hadlock Ubuvqci74.3 mm 25w 3d 50% Jamal HC / AC1.16 EVY073 g 24w 2d 16% Hadlock EFW (lb)1 lb EFW (oz)9 oz EFW by:Hadlock ([id number]) Extended Cav. septi pel. tr4.7 mm Vp3.8 mm CM7.5 mm 84% Nicolaides Head / Face / Neck Cephalic index0.71 <1% Nicolaides Extremities / Bony Struc FL / BPD0.78 FL / HC0.20 FL / AC0.23 Other Structures [id number] bpm General Evaluation Cardiac activity present. FHR [...] normal Heart / Thorax 3-vessel view:Appears normal 2-gdxgpq-rlkbjwh view:Appears normal Stomach:Appears normal Kidneys:Appears normal Bladder:Appears [...] office in 4wks for growth. Coding ======= Description:26421-15 Follow Up Nuclear Worker Technician: RT Annetta Hartmann , [facility] Physician: Jo Chappell MD Electronically signed by: Jo Chappell MD at: 16:54 us Kt Fan DO [facility] US ORDERABLES Final Res ult * Urinalysis, Microscopic Only - Urine, Clean Catch (08/19/2024 3:02 PM EDT) RBC, UA 0-2 None Seen, 0-2 /HPF 08/19/2024 3:33 PM EDT [facility] WBC, UA 0-2 None Seen, 0-2 /HPF 08/19/2024 3:33 PM EDT [facility] Bacteria, UA None Seen None Seen /HPF 08/19/2024 3:33 PM EDT [facility] Squamous Epithelial Cells, UA 0-2 None Seen, 0-2 /HPF 08/19/2024 3:33 PM EDT [facility] Hyaline Casts, UA None Seen None Seen /LPF 08/19/2024 3:33 PM EDT [facility] Methodology Automated Microscopy 08/19/2024 3:33 PM EDT [facility] Urine Urine specimen obtained by clean catch procedure / Unknown Collection / Unknown 08/19/2024 3:02 PM EDT 08/19/2024 3:13 PM EDT us Kt Fan DO URINE ORDERABLES Final Resu lt [facility]
[address] [place] [address], * (ABNORMAL) Urinalysis With Microscopic If Indicated (No Culture) - Urine, Clean Catch (08/19/2024 3:02 PM EDT) Color, UA Yellow Yellow, Straw 08/19/2024 3:33 PM EDT [facility] Appearance, UA Clear Clear 08/19/2024 3:33 PM EDT [facility] pH, UA >=9.0(H) 5.0 - 8.0 08/19/2024 3:33 PM EDT [facility] Specific Morse, UA 1.018 1.005 - 1.030 08/19/2024 3:33 PM EDT [facility] Glucose, UA Negative Negative 08/19/2024 3:33 PM EDT [facility] Ketones, UA 15 mg/dL (1+)(A) Negative 08/19/2024 3:33 PM EDT [facility] Bilirubin, UA Negative Negative 08/19/2024 3:33 PM EDT [facility] Blood, UA Negative Negative 08/19/2024 3:33 PM EDT [facility] Protein, UA 30 mg/dL (1+)(A) Negative 08/19/2024 3:33 PM EDT [facility] Leuk Esterase, UA Negative Negative 08/19/2024 3:33 PM EDT [facility] Nitrite, UA Negative Negative 08/19/2024 3:33 PM EDT [facility] Urobilinogen, UA 1.0 E.U./dL 0.2 - 1.0 E.U./dL 08/19/2024 3:33 PM EDT [facility] Urine Urine specimen obtained by clean catch procedure / Unknown Collection / Unknown 08/19/2024 3:02 PM EDT 08/19/2024 3:13 PM EDT Kt Fan DO URINE ORDERABLES Final Resu lt [facility]
[address] [place] [address], * (ABNORMAL) CBC Auto Differential (08/19/2024 3:02 PM EDT) WBC 9.19 3.40 - 10.80 10*3/mm3 08/19/2024 3:23 PM EDT [facility] RBC 3.58(L) 3.77 - 5.28 10*6/mm3 08/19/2024 3:23 PM EDT [facility] Hemoglobin 10.5(L) 12.0 - 15.9 g/dL 08/19/2024 3:23 PM EDT [facility] Hematocrit 31.4(L) 34.0 - 46.6 % 08/19/2024 3:23 PM EDT [facility] MCV 87.7 79.0 - 97.0 fL 08/19/2024 3:23 PM EDT [facility] MCH 29.3 26.6 - 33.0 pg 08/19/2024 3:23 PM EDT [facility] MCHC 33.4 31.5 - 35.7 g/dL 08/19/2024 3:23 PM EDT [facility] RDW 13.4 12.3 - 15.4 % 08/19/2024 3:23 PM EDT [facility] RDW-SD 42.4 37.0 - 54.0 fl 08/19/2024 3:23 PM EDT [facility] MPV 12.0 6.0 - 12.0 fL 08/19/2024 3:23 PM EDT [facility] Platelets 241 140 - 450 10*3/mm3 08/19/2024 3:23 PM EDT [facility] Neutrophil % 66.8 42.7 - 76.0 % 08/19/2024 3:23 PM EDT [facility] Lymphocyte % 24.4 19.6 - 45.3 % 08/19/2024 3:23 PM EDT [facility] Monocyte % 7.6 5.0 - 12.0 % 08/19/2024 3:23 PM EDT [facility] Eosinophil % 0.7 0.3 - 6.2 % 08/19/2024 3:23 PM EDT [facility] Basophil % 0.2 0.0 - 1.5 % 08/19/2024 3:23 PM EDT [facility] Immature Grans % 0.3 0.0 - 0.5 % 08/19/2024 3:23 PM EDT [facility] Neutrophils, Absolute 6.14 1.70 - 7.00 10*3/mm3 08/19/2024 3:23 PM EDT [facility] Lymphocytes, Absolute 2.24 0.70 - 3.10 10*3/mm3 08/19/2024 3:23 PM EDT [facility] Monocytes, Absolute 0.70 0.10 - 0.90 10*3/mm3 08/19/2024 3:23 PM EDT [facility] Eosinophils, Absolute 0.06 0.00 - 0.40 10*3/mm3 08/19/2024 3:23 PM EDT [facility] Basophils, Absolute 0.02 0.00 - 0.20 10*3/mm3 08/19/2024 3:23 PM EDT [facility] Immature Grans, Absolute 0.03 0.00 - 0.05 10*3/mm3 08/19/2024 3:23 PM EDT [facility] nRBC 0.0 0.0 - 0.2 /100 WBC 08/19/2024 3:23 PM EDT [facility] Blood Line / Unknown 08/19/2024 3: 02 PM EDT 08/19/2024 3:10 PM EDT Kt Fan DO LAB BLOOD ORDERABLES Final Result [facility]
[address] [place] [address], * Protein / Creatinine Ratio, Urine - Urine, Clean Catch (08/19/2024 3:02 PM EDT) Protein/Creati nine Ratio, Urine 126.1 0.0 - 200.0 mg/G Crea 08/20/2024 12:47 AM EDT [facility] Creatinine, Urine 148.3 mg/dL 08/20/2024 12:47 AM EDT [facility] Total Protein, Urine 18.7 mg/dL 08/20/2024 12:47 AM EDT [facility] Urine Urine specimen obtained by clean catch procedure / Unknown Collection / Unknown 08/19/2024 3:02 PM EDT 08/19/2024 4:26 PM EDT Kt Fan DO URINE ORDERABLES Final Resu lt [facility]
[address] [place] [address], * Type & Screen (08/19/2024 3:02 PM EDT) ABO Type O 08/19/2024 3:51 PM EDT [facility] RH type Positive 08/19/2024 3:51 PM EDT [facility] Antibody Screen Negative 08/19/2024 3:51 PM EDT [facility] T&S Expiration Date 08/22/2024 11:59:59 PM 08/19/2024 3:51 PM EDT [facility] Blood Line / Unknown 08/19/2024 3: 02 PM EDT 08/19/2024 3:15 PM EDT Kt Fan DO BLOOD BANK TEST ORDERABLES Edited Result - Final Performing Organization Address City/[facility]/ZIP Co de Phone Number [facility]
[address] [place] [address], * (ABNORMAL) Magnesium (08/19/2024 3:02 PM EDT) Magnesium 1.5(L) 1.6 - 2.6 mg/dL 08/19/2024 5:12 PM EDT [facility] Blood Line / Unknown 08/19/2024 3: 02 PM EDT 08/19/2024 3:10 PM EDT us Kt Fan DO LAB BLOOD ORDERABLES Final Result [facility]
[address] [place] [address], * Lipase (08/19/2024 3:02 PM EDT) Lipase 13 13 - 60 U/L 08/19/2024 3:36 PM EDT [facility] Blood Line / Unknown 08/19/2024 3: 02 PM EDT 08/19/2024 3:10 PM EDT Kt Fan DO LAB BLOOD ORDERABLES Final Result Performing Organization Address City/[facility]/ZIP Co de Phone Number [facility]
[address] [place] [address], * Amylase (08/19/2024 3:02 PM EDT) Pathologist [facility] Amylase 73 28 - 100 U/L 08/19/2024 3:36 PM EDT [facility] Blood Line / Unknown 08/19/2024 3: 02 PM EDT 08/19/2024 3:10 PM EDT Kt Fan DO LAB BLOOD ORDERABLES Final Result Performing Organization Address [facility] de Phone Number [facility]
[address] [place] [address], * Hepatitis C Antibody (04/12/2024) Pathologist [facility] Hep C Virus Ab negative Blood Historical Provider LAB BLOOD ORDERABLES Lena l Result from Last 3 Months or Most Recently Relevant to Health Maintenance Insurance [facility] Care Teams Boiler Service Technician Relationship Specialty Start Date End Date Norma Friedman APRN [address] [place] G3 RAFAELA APPIAH [id number] PCP - General Family Medicine 05/14/24
--- OUTSIDE RECORDS SUMMARY | 2024-10-12 11:27 | XMS_ITS | Encounter Summary ---
[facility] Address [address] [place] [address] Care Team Providers Care Laboratory Immunologist Name Role Phone Elder Norma FERNÁNDEZ Primary Care Provider + [phone] Encounter Details Date Type Department Care Team (Latest Contact Info) Description 08/29/2024 Travel Social History Tobacco Use Types Packs/Day Years Used Date Smoking Tobacco: Never Smokeless Tobacco: Never Alcohol Use Standard Drinks/Week Comments Never 0 (1 standard drink = 0.6 oz pur e alcohol) [facility] Utilities Answer Date Recorded In the past 12 months has Social Median electric, gas, oil, or water company threatened [...] and heating? Not hard at all 05/28/2024 [facility] [place] of Occupat ional Health - Occupational Stress [...] Visit [facility] GASTR[facility]OLOG[facility] [address] [facility] [address] [place] [id number] Robbin Escalante MD [address] [facility] [address] [place] [address] documented as of this encounter Visit Diagnoses Not on filedocumented in this encounter Additional Health Concerns Assessment Noted Time PHQ-2 Depression Total Score: 2 05/28/19 25 4:39 PM EDT documented as of this encounter Care Teams Laboratory Immunologist Relationship Specialty Start Date End Date Norma Friedman APRN [address] [place] G3 RAFAELA APPIAH [id number] PCP - General Family Medicine 05/14/24 documented as of this encounter
--- OUTSIDE RECORDS SUMMARY | 2024-10-12 11:27 | XMS_ITS | Clinical Summary ---
Author Organization [facility] Address [place] [address] Phone Care Team Providers Care Director Of Purchasing Name Role Phone Unavailable Primary Care Provider [...] migh t be different from the original. [facility] - Edwardo Ojeda MD Interventional Pain Protocol: NS Appt 03/29/22 Letter Sent Maxime report completed (EVERY 3 MONTHS) ( 03/23/22) Pharmacy: [facility] [address] [place] [phone] - [phone] [facility] south - [phone] No known active problems Social History Tobacco [...] Cotest 2021 COVID-19 Vaccine (2023-2 5 season) 2024 Influenza Vaccine (#1) 2024 03/28/2012 Hepatitis B Vaccine Completed 06/26/2002, 01/15/2002, 11/30/2001 Meningococcal B Vaccine Aged Out No l onger eligible based on patient's age to complete this topic Pneumococcal Vaccine 0-49 Aged Out No longer eligible based on patient's age to complete this topic Insurance [employer] [facility] [id number]
--- OUTSIDE RECORDS SUMMARY | 2024-10-12 11:27 | XMS_ITS | Referral Summary ---
Author Organization [employer] ([place], [place], [place], [place]) Address [address] [place] [address] Care Team Providers Care Signal Operator Name Role Phone Unavailable Primary Care [...]
--- OUTSIDE RECORDS SUMMARY | 2024-10-12 11:27 | XMS_ITS | Encounter Summary ---
[facility] Address [address] [place] [id number] Care Team Providers Care Therapist Respiratory Name Role Phone Ivyashlyn Norma FERNÁNDEZ Primary Care Provider + [phone] Encounter Details Date Type Department Care Team (Late st Contact Info) Description 08/28/2024 Telephone [facility] OBGYN [address] [address] Staci Jain MD [address] [place] [id number] Social History Tobacco Use Types Packs/Day Years Used Date Smoking Tobacco: Never Smokeless Tobacco: Never Alcohol Use Standard Drinks/Week Comments Never 0 (1 standard drink = 0.6 oz pur e alcohol) [facility] Utilities Answer Date Recorded In the past 12 months has [employer], gas, oil, or water [employer] threatened to shut off services in your [...] sit with a family member admitted to [facility] today and does not know if she can make it back for labs (BMP). She does have an appt in [facility] at 10 am tomorrow. Advisedthat [...] states she was supposed to come into [place] office today to have labs drawn however sheis currently hung up at [facility] is wondering if she could just have labs drawn there? documented in this encounter Plan of Treatment Upcoming Encounters Date Type Department Care Team (Late st Contact Info) Description 01/20/2025 3:30 PM EST Office Visit [facility] GASTROENTEROLOGY [address] [facility] [address] [place] [address] Robbin Escalante MD [address] [facility] [address] [place] [address] documented as of this encounter Visit Diagnoses Not on filedocumented in this encounter Additional Health Concerns Assessment Noted Time PHQ-2 Depression Total Score: 2 05/28/19 25 4:39 PM EDT documented as of this encounter Care Teams Therapist Respiratory Relationship Specialty Start Date End Date Norma Friedman APRN [address] [place] [place]FA[place] APPIAH [address] PCP - General Family Medicine 05/14/24 documented as of this encounter
--- OUTSIDE RECORDS SUMMARY | 2024-10-12 11:27 | XMS_ITS | Encounter Summary ---
[facility] [address] [place] [id number] Care Team Providers Care Records Management Assistant Name Role Phone IvyNorma goldberg JOLENE Primary Care Provider + [phone] Reason for Visit * Reason Onset Date Comments Advice Only 10/10/2024 Encounter Details Date Type Department Care Team (Late st Contact Info) Description 10/10/2024 Telephone [facility] MATERNAL MEDICINE [address] [facility] [place] [address] [place] [address] Lyudmila Germain, electric meter setter Only Social History Tobacco Use Types Packs/Day Years Used Date Smoking Tobacco: Never Smokeless Tobacco: Never Alcohol Use Standard Drinks/Week Comments Never 0 (1 standard drink = 0.6 oz pur e alcohol) [facility] Utilities Answer Date Recorded In the past 12 months has [employer], gas, oil, or water [email or web address] threatened to shut off services in your [...] Not hard at all 05/28/2024 [facility] [place] [facility] - Occupational Stress [...] Miscellaneous Notes * Telephone Encounter - Lyudmila Germain, RN - 10/10/2024 12:38 PM EDT Late entry: Patient called desiring appointment with [facility] due to hypokalemia and hypomagnesemia requiring infusions every other day. Per orthodontic treatment coordinator, referral was received here last week but our physicians determined patient needs to continue receiving [facility] care at as she sees otherspeciality physicians (cardiology, nephrology) there as well. Discussed this with patient who states Dr. Weller () refused to see her again and she has no options. Patient reported her physicians at [facility] told her if she has another cardiac event she will . Upon reviewing notes from specialists at , cardiology note states patient will wear case monitor and return in 4 weeks to discuss r esults and delivery plans and monitoring. Patient states cardiology refuses to see her until she ispostpartum - although it appears she has an appointment on 10/24. Per note from nephrology at , limited options for treatment other than continued repletion. Informed patient our office will reach out to [facility] at to determine if there is an issue in scheduling her there and we will call her back. After our office talked to [facility], a nurse there states there is no issue with her scheduling and she is more than welcome to come back for appointments. Called patient back, informed her she is welcome to schedule a follow-up at [facility] and gave her their office number. documented in this encounter Plan of Treatment Upcoming Encounters Date Type Department Care Team (Late st Contact Info) Description 01/20/2025 3:30 PM EST Office Visit [facility] GASTROENTEROLOGY [address] [facility] [address] [place] [address] Robbin Escalante MD [address] [facility] [address] [place] [address] documented as of this encounter Visit Diagnoses Not on filedocumented in this encounter Additional Health Concerns Assessment Noted Time PHQ-2 Depression Total Score: 2 05/28/19 4:39 PM EDT documented as of this encounter Care Teams Records Management Assistant Relationship Specialty Start Date End Date Norma Friedman APRN [address] [place] [address] [place] APPIAH [address] PCP - General Family Medicine 05/14/24 documented as of this encounter
--- OUTSIDE RECORDS SUMMARY | 2024-10-12 11:28 | XMS_ITS | Encounter Summary ---
Author Organization Healthcare Address [address] [place] [address] Care Team Providers Care Mortgage Loan Officer Name Role Phone Unavailable Primary Care Provider Unavailabl e Reason for Referral * Consultation (Routine) - Closed Specialty Diagnoses / Procedures Referred By Contac t Referred To Contact Nephrology Diagnoses Hypokalemia Liborio Weller MD [address] [facility] [address] [place] [address] Phone: tel: fax: [facility] Nephrology, Bone & Mineral Metabolism [address] [facility], [address] [place] [address] Phone: tel: fax: Referral ID Status Reason Start Date Expiration Date V isits Requested Visits Authorized [id number] Closed Specialty Services Required 09/14/2024 03/16/2026 1 1 Scheduling Instructions Severe hypokalemia in the setting of Encounter Details Date Type Department Care Team (Late st Contact Info) Description 09/14/[address] [facility] Obstetrics & Gynecology [address] [place] [address] Susi Wren MD [address] [place] [address] Social History Tobacco Use Types [...] had an outpatient workup with Nephrology at [facility] that was negative, she was [...] Description 10/17/2024 8:[address] [facility] Ultrasound [address] [place] [address] 10/17/2024 9:15 AM EDT [facility] Obstetrics and Gynecology [address] [facility], [address] [place] [address] Laury Cruz MD [address] [facility] [address] [place] [address] 10/24/2024 8:00 AM EDT Office Visit [facility] [place] [address] [facility], [address] [place] [address] Nneka Block MD [address] [place] [address] 12/25/2024 1:00 PM EST Office Visit [facility] Nephrology, Bone & Mineral Metabolism [address] [facility], [address] [place] [address] Scheduled Referrals Name Type Priority Associated Diagnoses Order Schedule Ambulatory referral to Nephrology Clinic Outpatient Referral Routine Hypokalemia 1 Occurrences starting 09/14/2024 until 03/18/2026 documented as of this encounter Visit Diagnoses Diagnosis Hypokalemia- Primary Hypopotassemia documented in this encounter
--- OUTSIDE RECORDS SUMMARY | 2024-10-12 11:28 | XMS_ITS | Encounter Summary ---
Author Organization Healthcare Address [address] [place] [address] Care Team Providers Care Assistant Athletic Trainer Name Role Phone Unavailable Primary Care Provider Unavailabl e Encounter Details Date Type Department Care Team (Late st Contact Info) Description 09/17/2024 Telephone [facility] Nephrology, Bone & Mineral Metabolism [address] [facility], [address] [place] [address] Sherley Gold, BEHAVIORAL ANALYST GS - 7 MAIN MEDICAL-SURGICAL Social History [...] Description 10/17/2024 8:30 AM EDT Appointment [facility] Ultrasound [address] [place] [address] 10/17/2024 9:15 AM EDT Routine Medical Office Building Obstetrics and Gynecology [address], [address] [place] [address] Laury Cruz MD [address] [place] [address] 10/24/2024 8:00 AM EDT Office Visit [facility] [place] [address] [facility], [address] [place] [address] Nneka Block MD [address] [place] [address] 12/25/2024 1:00 PM EST Office Visit [facility] [place] Nephrology, Bone & Mineral Metabolism [address] [facility], [address] [place] [address] documented as of this encounter Visit Diagnoses Not on filedocumented in this encounter
--- OUTSIDE RECORDS SUMMARY | 2024-10-12 11:28 | XMS_ITS | Encounter Summary ---
Author Organization [facility] Address [address] [place] [id number] Care Team Providers Care Outside Physical Damage Appraiser Name Role Phone Unavailable Primary Care Provider Unavailabl e Encounter Details Date Type Department Care Team (Late st Contact Info) Description 09/17/2024 Telephone [facility] Obstetrics and Gynecology [address] [facility], [address] [place] [address] Josefina Shay RN [facility] [address] [place] [address] Social History Tobacco Use Types Packs/Day Years [...] recently had a full Nephrology work-up at [facility] that was negative and was [...] Info) Description 10/17/2024 8:30 AM EDT Appointment [facility] Ultrasound [address] [place] [address] 10/17/2024 9:15 AM EDT Routine Medical Office Building Obstetrics and Gynecology [address] [facility], [address] [place] [address] Laury Cruz MD [address] [facility] [address] [place] [address] 10/24/2024 8:00 AM EDT Office Visit [facility] [place] [address] [facility], [address] [place] [address] Nneka Block MD [address] [place] [address] 12/25/2024 1:00 PM EST Office Visit [facility] [place] Nephrology, Bone & Mineral Metabolism [address] [facility], [address] [place] [address] documented as of this encounter Visit Diagnoses Not on filedocumented in this encounter
--- OUTSIDE RECORDS SUMMARY | 2024-10-12 11:28 | XMS_ITS | Encounter Summary ---
Author Organization Healthcare Address [address] [place] [address] Care Team Providers Care Checkering Machine Adjuster Name Role Phone Norma Friedman APRN Primary Care Provider [phone]- [phone] Encounter Details Date Type Department Care Team [...] more drinks on one occasion? Never 09/23/2024 Ola Depression Scale Answer Date Recorded Ola Depression Scale Total 0 09/23/2024 The thought [...] Info) Description 10/17/2024 8:30 AM EDT Appointment [facility] Ultrasound [address] [place] [address] 10/17/2024 9:15 AM EDT Routine Medical Office Building Obstetrics and Gynecology [address] [facility], [address] [place] [address] Laury Cruz MD [address] [facility] [address] [place] [address] 10/24/2024 8:00 AM EDT Office Visit [facility] [place] [address] [facility], [address] [place] [address] Nneka Block MD [address] [place] [address] 12/25/2024 1:00 PM EST Office Visit [email or web address] [place] Nephrology, Bone & Mineral Metabolism [address] [facility], [address] [place] [address] documented as of this encounter Visit Diagnoses Not on filedocumented in this encounter Additional Health Concerns Assessment Noted Time A fall risk assessment has been complete d for the patient 09/25/2024 3:05 PM EDT A Body Mass Index follow-up plan has been documented for the patient 10/05/2024 8:54 PM EDT documented as of this encounter Care Teams Checkering Machine Adjuster Relationship Specialty Start Date End Date Norma Friedman APRN [address] [place] [address] PCP - General 09/23/24 documented as of this encounter
--- OUTSIDE RECORDS SUMMARY | 2024-10-12 11:28 | XMS_ITS | Encounter Summary ---
Author Organization Healthcare Address [address] [place] [address] Care Team Providers Care [place] Transportation Worker Name Role Phone Norma Friedman HEALTH FACILITIES SURVEYOR Primary Care Provider [phone] Lizz Trinh RN Unavailable Unavailable Encounter Details [...] more drinks on one occasion? Never 09/23/2024 Milner Depression Scale Answer Date Recorded Milner Depression Scale Total 0 09/23/2024 The thought [...] [facility] Ultrasound [address] [place] [address] 10/17/2024 9:15 AM EDT Routine Medical Office Building Obstetrics and Gynecology [address] [facility], [address] [place] [address] Laury Cruz MD [address] [place] [address] 10/24/2024 8:00 AM EDT Office [facility] [place] [address] [facility], [address] [place] [address] Nneka Block MD [address] [place] [address] 12/25/2024 1:00 PM EST Office Visit [facility] Nephrology, Bone & Mineral Metabolism [address] [facility], [address] [place] [address] documented as of this encounter Visit Diagnoses Not on filedocumented in this encounter Additional Health Concerns Assessment Noted Time A fall risk assessment has been complete d for the patient 09/26/2024 8:15 AM EDT A Body Mass Index follow-up plan has been documented for the patient 09/27/2024 10:22 AM EDT documented as of this encounter Care Teams River Transportation Worker Relationship Specialty Start Date End Date Norma Friedman APRN [address] [place] [address] PCP - General 09/23/24 Lizz Trinh, RN [facility] Registered Nurse Cardiology 09/26/24 documented as of this encounter
--- OUTSIDE RECORDS SUMMARY | 2024-10-12 11:28 | XMS_ITS | Clinical Summary ---
Author Organization [employer] ([place], [place], [place], [place]) Address [address] [place] [address] Care Team Providers Care Package Reinspector Name Role Phone Unavailable Primary Care Provider [...]
--- OUTSIDE RECORDS SUMMARY | 2024-10-12 11:28 | XMS_ITS | Encounter Summary ---
Author Organization [employer] ([place], [place], [place], [place]) Address [address] [place] [address] Care Team Providers Care Feather Edger Name Role Phone Unavailable Primary Care Provider Unavailabl e Encounter Details Date Type Department Care Team (Late st Contact Info) Description 07/17/2019 Transcribed Document [facility] [place] Family Medicine [address] [place] [address] ProviderEleno MD [address] [place], [place] [address] Social History Tobacco Use Types Packs/Day Years [...] On: 07/17/2019 19:17 EDT by KARLENE MCKINLEY billet sawyer Process Patient Disposition : AMA/Elope/LWBS KARLENE MCKINLEY [...]
--- OUTSIDE RECORDS SUMMARY | 2024-10-12 11:28 | XMS_ITS | Encounter Summary ---
[facility] Address [address] [place] [phone] Care Team Providers Care Sheet Metal Worker Helper Name Role Phone Elder Norma FERNÁNDEZ Primary Care Provider + [phone] Encounter Details Date Type Department Care Team (Late st Contact Info) Description 07/07/2024 Results Follow-Up [facility] OBGYN [address] [place] [address] [place] [id number] Kelly Delgado APRN [address] [facility] [address] [place] [address] Social History Tobacco Use Types Packs/Day Years Used Date Smoking Tobacco: Never Smokeless Tobacco: Never Alcohol Use Standard Drinks/Week Comments Never 0 (1 standard drink = 0.6 oz pur e alcohol) [facility] Utilities Answer Date Recorded In the past 12 months has [employer], gas, oil, or water [employer] threatened to shut off services in your [...] Visit [facility] GASTROENTEROLOGY [address] [facility] [address] Robbin Escalante MD [address] [address] documented as of this encounter Visit Diagnoses Not on filedocumented in this encounter Additional Health Concerns Assessment Noted Time PHQ-2 Depression Total Score: 2 05/28/19 25 4:39 PM EDT documented as of this encounter Care Teams Sheet Metal Worker Helper Relationship Specialty Start Date End Date Norma Friedman APRN [address] [place] [address] [place] [address] PCP - General Family Medicine 05/14/24 documented as of this encounter
--- OUTSIDE RECORDS SUMMARY | 2024-10-12 11:28 | XMS_ITS | Clinical Summary ---
Author Organization Healthcare Address [address] [place] [address] Care Team Providers Care Ship Carpenter Name Role Phone Norma Friedman JOLENE Primary Care Provider +1- [phone] Lizz Trinh RN Unavailable Unavailable Allergies Active [...] dermatitis with skin contact Medications Prenat MV-Min w/Xr-Oybpus-NRX ( COMPLETE PO) 019 Active potassium chloride [...] chew. 60 tablet 1 025 2024 Discontinued Kfpaujeq-Jqb-Wx-F A ( 1 + IRON PO) 2024 Discontinued Active Problems Problem Noted Date Diagnosed Date Hypokalemia 09/25/2024 Estimated Date of Delivery Comme nts Yes 12/01/2024 Encounters Date Type Department Care Team Description 09/26/2024 9:06 AM EDT - 09/26/2024 11:59 PM EDT Hospital Encounter Medical Office Building Cardiac Diagnostic Testing Medical Office Building Echo Lab [address], [address] [place] [address] Palpitations; Syncope and collapse Discharge Disposition: Home or Self Care 09/26/2024 8:00 AM EDT Office Visit [facility] [place] [address], [address] [place] [address] Nneka Block MD Syncope and collapse (Primary Dx); Atrial fibrillation, unspecified type (CMS/HCC); Palpitations 09/26/2024 Travel 09/25/2024 2:20 PM EDT Office Visit [facility] Nephrology, Bone & Mineral Metabolism [address], [address] [place] [address] Bill Patrick MD Hypokalemia (Primary Dx) 09/25/2024 Travel 09/23/2024 10:00 AM EDT Office Visit Medical Office Building Obstetrics and Gynecology [address], [address] [place] [address] Liborio Weller MD Supervision of high risk , antepartum (Primary Dx); Cardiac arrhythmia, unspecified cardiac arrhythmia type 09/23/2024 Travel 09/17/2024 Telephone [facility] Nephrology, Bone & Mineral Metabolism [address], [address] [place] [address] Sherley Gold CNA 09/17/2024 Telephone Medical Office Building Obstetrics and Gynecology [address], [address] [place] [address] Josefina Shay RN 09/14/2024 Telephone [facility] Obstetrics & Gynecology [address] [place] [address] Susi Wren MD 07/22/2024 [facility] [address] [place] [address] Staci Jain MD History of proteinuria syndrome (Primary Dx); care, subsequent , second trimester 07/22/2024 [facility] [address] [place] [address] Sandy Cardenas MD from Last 3 Months [...] more drinks on one occasion? Never 09/23/2024 [place] Depression Scale Answer Date Recorded [place] Depression Scale Total 0 09/23/2024 The thought [...] Info) Description 10/17/2024 8:30 AM EDT Appointment [facility] Ultrasound [address] [place] [address] 10/17/2024 9:15 AM EDT Routine Medical Office Building Obstetrics and Gynecology [address], [address] [place] [address] Laury Cruz MD [address] [place] [address] 10/24/2024 8:00 AM EDT Office Visit [facility] [place] [address], [address] [place] [address] Nneka Block MD [address] [place] [address] 12/25/2024 1:00 PM EST Office Visit [facility] Nephrology, Bone & Mineral Metabolism [address], [address] [place] [address] Health Maintenance Due Date Last Done Comments [facility]-/Child/Adol SDOH Screenings 1991 [facility]-Varicella Vaccines (1 of 2 - 13+ 2-dose series) 2004 [facility]- SDOH Screenings 2009 [facility]-Adult SDOH Screenings 2009 [facility]-Hepatitis B Vaccines (1 of 3 - 19+ 3-dose series) 2010 [facility]-Pap Smear 2012 [facility]-Cervical Cancer Screening 2021 [facility]-HPV/Cotest 2021 [facility]-HJURS-45 Vaccine (2 - 2024- season) 2024 05/04/2022 [...] Chloride, Urine 25 mmol/L 2:03 PM EDT [facility] Urine Urine specimen obtained by clean catch procedure / Unknown Non-blood Collection / Unknown 09/26/2024 10:07 AM EDT 09/26/2024 10:07 AM EDT us Bill Patrick MD LAB URINE ORDERABLES Final Resul t Performing Organization Address City/[facility] Co de Phone Number [facility] [address] [place] [address] * Protein, Random, Urine with Creatinine (09/26/2024 10:03 AM EDT) Protein, Urine 26 mg/dL 09/26/2024 12:08 PM EDT [facility] Creatinine, Urine 199 mg/dL 09/26/2024 12:08 PM EDT [facility] Protein/Creati nine Ratio 0.1 mg/mg Creat 09/26/2024 12:08 PM EDT [facility] Urine Urine specimen obtained by clean catch procedure / Unknown Non-blood Collection / Unknown 09/26/2024 10:03 AM EDT 09/26/2024 10:04 AM EDT us Bill Patrick MD LAB URINE ORDERABLES Final Resul t Performing Organization Address City/[facility] Co de Phone Number [facility] [address] [place] [address] * Sodium, urine, random (09/26/2024 10:02 AM EDT) Sodium, Urine 110 mmol/L 09/26/2024 11:55 AM EDT [facility] Urine Urine specimen obtained by clean catch procedure / Unknown Non-blood Collection / Unknown 09/26/2024 10:02 AM EDT 09/26/2024 10:02 AM EDT us Bill Patrick MD LAB URINE ORDERABLES Final Resul t Performing Organization Address City/[facility] Co de Phone Number [facility] [address] [place] [address] * Potassium, urine, random (09/26/2024 10:02 AM EDT) Potassium, Urine 43 mmol/L 09/26/2024 11:55 AM EDT [facility] Urine Urine specimen obtained by clean catch procedure / Unknown Non-blood Collection / Unknown 09/26/2024 10:02 AM EDT 09/26/2024 10:02 AM EDT us Bill Patrick MD LAB URINE ORDERABLES Final Resul t Performing Organization Address [facility] Co de Phone Number [facility] [address] [place] [address] * Osmolality, urine (09/26/2024 10:02 AM EDT) Osmolality, Urine 404 50 - 1,200 mOsm/kg 09/26/2024 1:48 PM EDT [facility] Urine Urine specimen obtained by clean catch procedure / Unknown Non-blood Collection / Unknown 09/26/2024 10:02 AM EDT 09/26/2024 10:02 AM EDT us Bill Patrick MD LAB URINE ORDERABLES Final Resul t Performing Organization Address City/[facility] Co de Phone Number [facility] [address] [place] [address] * SSA 52 and 60 (Ro) (YARA) Antibodies, IgG (09/26/2024 9:32 AM EDT) SSA-52 (RO52) (YARA) Antibody, IgG 2 0 - 40 AU/mL 09/28/2024 5:47 PM EDT [facility] (TERRI) SSA-60 (RO60) (YARA) Antibody, IgG 0 0 - 40 AU/mL 09/28/2024 5:47 PM EDT [facility] (TERRI) Serum 09/26/2024 9:32 AM EDT 09/26/2024 9:32 AM EDT Narrative [facility] (TERRI) - 09/28/2024 5:47 PM EDT [...] AU/mL or Greater .......... Positive Performed By: [facility] [address] [place] [address] Senior Linux Administrator: Brandon Bell MD, PhD CLIA Number: [id number] us Bill Patrick MD LAB REF LAB BLOOD AND FLUID ORD Final Result [facility] [employer]TERRI) [address] [place] [address] * SSB (LA) (YARA) ANTIBODY, IGG (09/26/2024 9:32 AM EDT) SSB (LA) (YARA) Antibody, IgG 0 0 - 40 AU/mL 09/28/2024 5:47 PM EDT [facility] (TERRI) Serum Venous blood specimen / Unknown 09/26/2024 9:32 AM EDT 09/26/2024 9:32 AM EDT Narrative [facility] JULIEN SORENSEN) - 09/28/2024 5:47 PM EDT INTERPRETIVE INFORMATION: [...] (PSS) also have this antibody. Performed By: [facility] [address] [place] [address] Senior Linux Administrator: Brandon Bell MD, PhD CLIA Number: [id number] Bill Patrick MD LAB BLOOD ORDERABLES Final Resul t [facility] [employer]TERRI) [address] [place], [place] [id number] * Rheumatoid factor, plasma (09/26/2024 9:32 AM EDT) Pathologist [facility] Rheumatoid Factor, Plasma <10 <14 IU/mL 09/26/2024 1:49 PM EDT [facility] Blood Venous blood specimen / Unknown Venipuncture / Unknown 09/26/2024 9:32 AM EDT 09/26/2024 9:32 AM EDT Bill Patrick MD LAB BLOOD ORDERABLES Final Resul t [facility] [address] [place] [facility] [place] [address] * Antinuclear Antibody (JEFFERY), HEp-2, IgG (09/26/2024 9:32 AM EDT) JEFFERY INTERPRETIVE COMMENT See Note 09/28/2024 5:13 PM EDT [facility] (TERRI) Anti Nuc Ab Screen <1:80 <1:80 09/28/2024 5:13 PM EDT [facility] (TERRI) Blood Venous blood specimen / Unknown Venipuncture / Unknown 09/26/2024 9:32 AM EDT 09/26/2024 9:32 AM EDT Narrative [facility] (TERRI) - 09/28/2024 5:13 PM EDT INTERPRETIVE [...] rings, and cytoplasmic speckled patterns. Performed By: [facility] [address] [place] [address] Senior Linux Administrator: Brandon Bell MD, PhD CLIA Number: [id number] Bill Patrick MD LAB BLOOD ORDERABLES Final Resul t [facility] [employer]) [address] [place] [address] * (ABNORMAL) Osmolality (09/26/2024 9:32 AM EDT) Osmolality, Serum 273(L) 275 - 295 mOsm/Kg 09/26/2024 2:10 PM EDT [facility] Blood Venous blood specimen / Unknown Venipuncture / Unknown 09/26/2024 9:32 AM EDT 09/26/2024 9:32 AM EDT us Bill Patrick MD LAB BLOOD ORDERABLES Final Resul t [facility] [address] [place] [address] * (ABNORMAL) Renal function panel (09/26/2024 9:32 AM EDT) Pathologist [facility] Glucose, Plasma 87 74 - 99 mg/dL 09/26/2024 12:24 PM EDT [facility] BUN, Plasma 5(L) 7 - 21 mg/dL 09/26/2024 12:24 PM EDT [facility] Creatinine, Plasma 0.72 0.60 - 1.10 mg/dL 09/26/2024 12:24 PM EDT [facility] BUN/Creatinine Ratio 7 09/26/2024 12:24 PM EDT [facility] Sodium, Plasma 135(L) 136 - 145 mmol/L 09/26/2024 12:24 PM EDT [facility] Potassium, Plasma 3.1(L) 3.6 - 4.9 mmol/L 09/26/2024 12:24 PM EDT [facility] Chloride, Plasma 95(L) 97 - 107 mmol/L 09/26/2024 12:24 PM EDT [facility] CO2, Plasma 26 22 - 29 mmol/L 09/26/2024 12:24 PM EDT [facility] Anion Gap 14 6 - 16 mmol/L 09/26/2024 12:24 PM EDT [facility] Total Calcium, Plasma 9.4 8.9 - 10.2 mg/dL 09/26/2024 12:24 PM EDT [facility] Phosphorus, Plasma 3.5 2.5 - 4.5 mg/dL 09/26/2024 12:24 PM EDT [facility] Albumin, Plasma 3.6 3.5 - 5.2 g/dL 09/26/2024 12:24 PM EDT [facility] eGFRcr 113.4 mL/min/1.7 3m*2 09/26/2024 12:24 PM EDT [facility] Comment:Reported eGFRcr in m L/min/1.73m2 is based the CKD-EPI 2020 equation that does not use a race coefficient. Blood Venous blood specimen / Unknown Venipuncture / Unknown 09/26/2024 9:32 AM EDT 09/26/2024 9:32 AM EDT Bill Patrick MD LAB BLOOD ORDERABLES Final Resul t Performing Organization Address [facility] Co de Phone Number [facility] [address] [place] [address] * ECG Adult (Now - Performed in your clinic) (09/26/2024 8:21 AM EDT) EKG DIAGNOSIS CLASS Normal MUSE ECG Ventricular Rate 84 BPM MUSE ECG Atrial Rate 84 BPM MUSE ECG IN Interval 148 ms MUSE ECG QRSD Interval 74 ms MUSE ECG QT Interval 374 ms MUSE ECG QTC Interval 441 ms MUSE ECG P [place] 60 degrees MUSE ECG R [place] 36 degrees MUSE ECG T Wave [place] 55 degrees MUSE ECG Diagnosis Normal sinus rhythm with sinus arrhythmia MUSE ECG Diagnosis Normal ECG MUSE ECG Diagnosis MUSE ECG Diagnosis Confirmed by Abad South ([id number]) on 09/26/2024 12:13:59 PM MUSE ECG 09/26/2024 8:21 AM EDT 09/26/2024 12:13 PM EDT Nneka Block MD ECG ORDERABLES Final Resu lt Performing Organization Address [facility] Co de Phone Number MUSE ECG * (ABNORMAL) POCT Urinalysis Dipstick (09/23/2024 10:54 AM EDT) POCT Urine Color Yellow POCT Urine Clarity Clear POCT Glucose Urine Negative Negative mg/dL POCT Bilirubin, Urine Small(A) Negative POCT Ketones, Urine 40(A) Negative mg/dL POCT Specific [place], Urine 1.015 POCT Blood, Urine Negative Negative POCT pH, Urine >=9.0(A) 5.0 to 8.0 POCT Protein, Urine 100(A) Negative mg/dL POCT Urobilinogen, Urine 0.2 0.2, 1 E.U./dL POCT Nitrite, Urine Negative Negative POCT Leukocyte Esterase, Urine Negative Negative Test Strip Lot Number [id number] Test Strip Lot Expiration 07/2025 Urine Urine [...] ORDERABLES Fin al Result Performing Organization Address City/[facility] de Phone Number [facility] * Hepatitis C Antibody (01/22/2019 9:57 AM EST) Pathologist [facility] Hepatitis C Antibody NEGATIVE Reference Range: Negative [facility] 01/22/2019 9:57 AM EST 01/22/2019 12:12 PM EST Pradip Damico APRN, CNM LAB BLOOD ORDERABLES Fin al Result Performing Organization Address City/State/[facility] Co de Phone Number [facility] from Last 3 Months or Most Recently Relevant to Health Maintenance Insurance [employer] [facility] MEDICAID Care Teams Ship Carpenter Relationship Specialty Start Date End Date Norma Friedman APRN [address] [place] [address] PCP - General 09/23/24 Lizz Trinh, RN [facility] Registered Nurse Cardiology 09/26/24
--- OUTSIDE RECORDS SUMMARY | 2024-10-12 11:29 | XMS_ITS | Encounter Summary ---
Author Organization Healthcare Address [address] [place] [address] Care Team Providers Care South Asian History Professor Name Role Phone Norma Friedman APRN Primary Care Provider +1- [phone] Encounter Details Date Type Department Care Team [...] more drinks on one occasion? Never 09/23/2024 [place] Depression Scale Answer Date Recorded [place] Depression Scale Total 0 09/23/2024 The thought [...] Info) Description 10/17/2024 8:30 AM EDT Appointment [facility] Ultrasound [address] [place] [address] 10/17/2024 9:15 AM EDT Routine Medical Office Building Obstetrics and Gynecology [address], [address] [place] [address] Laury Cruz MD [address] [place] [address] 10/24/2024 8:00 AM EDT Office Visit [facility] [place] [address], [address] [place] [address] Nneka Block MD [address] [place] [address] 12/25/2024 1:00 PM EST Office Visit [facility] Nephrology, Bone & Mineral Metabolism [address], [address] [place] [address] documented as of this encounter Visit Diagnoses Not on filedocumented in this encounter Additional Health Concerns Assessment Noted Time A Body Mass Index follow-up plan has been documented for the patient 09/23/2024 8:28 PM EDT documented as of this encounter Care Teams South Asian History Professor Relationship Specialty Start Date End Date Norma Friedman APRN [address] [place] [address] PCP - General 09/23/24 documented as of this encounter
[2024-10-12 12:56] VITALS: BMI 24.9
[2024-10-12 12:57] LABS: Albumin Level 3.5 g/dl (3.5-5.0); Chloride 95 mmol/L (98-107); Sodium 133 mmol/L (136-145)
[2024-10-12 12:59] LABS: Alanine Aminotransferase 55 U/L (12-78); Aspartate Amino Transferase 81 U/L (14-36); Blood Urea Nitrogen 6 mg/dl (7-17); Creatinine Clearance Estimated 138 mL/min (50-200); Creatinine,Serum 0.60 mg/dl (0.52-1.04); Estimated Glomerular Filt Rate 115 ml/min (>60); GFR (African American) 139 ML/MIN (>60)
[2024-10-12 13:00] LABS: Albumin/Globulin Ratio 1.1 (1.1-1.8); Alkaline Phosphatase 86 U/L (38-126); Anion Gap 10.9 mEq/L (5-15); Bilirubin,Total 0.8 mg/dl (0.2-1.3); Calcium 9.1 mg/dl (8.4-10.2); Carbon Dioxide 30 mmol/L (22.0-30.0); Globulin 3.1 g/dL (1.3-3.2); Glucose 101 mg/dl (74-100); Magnesium 1.4 mg/dl (1.6-2.3); Total Protein,Serum 6.6 g/dl (6.3-8.2)
[2024-10-12 13:06] LABS: Potassium 2.9 mmoL/L (3.5-5.1)
--- NOTE | 2024-10-12 13:06 | PC.NURSE ---
Shannan Banerjee from the lab called with critcal Potassium 2.9. Pts name and verified
--- NOTE | 2024-10-12 13:14 | XR_ITS ---
PROCEDURE INFORMATION: Exam: XR Chest Exam date and time: 10/12/2024 1:37 PM Age: 34 years old Clinical indication: Condition or disease; Catheter placement, adjustment or replacement and other: Picc line placement TECHNIQUE: Imaging protocol: Radiologic exam of the chest. Views: 1 view. COMPARISON: CR XR CHEST PORTABLE 09/11/2024 11:15 AM FINDINGS: Tubes, catheters and devices: Left upper extremity PICC tip in the lower superior vena cava, near the cavoatrial junction. Lungs: Calcified granuloma within the left lower. Accessory azygos fissure. No focal consolidations or pulmonary edema. Pleural spaces: Normal. Heart/Mediastinum: Normal. Bones/joints: No acute abnormality. IMPRESSION: 1. Left upper extremity PICC tip in the lower superior vena cava, near the cavoatrial junction. 2. No acute cardiopulmonary abnormality.
--- NOTE | 2024-10-12 13:45 | EXP.ACUTE.PN ---
Subjective *Date: 10/12/24 *Time: 13:45 Interval history: She is known to have chronic hypokalemia and receives IV infusions of this every couple of days. She also has chronic hypomagnesemia and receives infusions of this as well. Today she was feeling unwell and not able to keep anything down. She came here to labor and delivery. Her potassium is 2.9 today and her magnesium is 1.4. She received IV potassium 48 hours ago. She also is known to have chronic tachycardia. She has GERD as well. She was seen by Claudia in GI and found to have a hiatal hernia. She was recently diagnosed with intra hepatic cholestasis of as well. Her liver enzymes have been slightly elevated. Her AST was 57 2 days ago and today it is 81. We will continue to monitor this closely. She is not having any contractions and the nonstress test is reactive. We will also plan to give her steroids today and tomorrow since she is going to deliver between 36 and 37 weeks. Medical Exam Vital signs and Labs for Last 24 Hours: Intake and Output 10/12/24 10/12/24 10/12/24 03:59 11:59 19:59 Other: Weight 145 lb Patient Weight 10/13/24 11:59 Weight 145 lb Laboratory Results - last 24 hr 10/12/24 11:40: Sodium 133 L, Potassium 2.9 L*, Chloride 95 L, Carbon Dioxide 30, Anion Gap 10.9, BUN 6 L, Creatinine 0.60, Estimated Creat Clear 138, Estimated GFR 115, Est GFR ( Amer) 139, Glucose 101 H, Calcium 9.1, Magnesium 1.4 L D, Total Bilirubin 0.8, AST 81 H D, ALT 55, Alkaline Phosphatase 86, Total Protein 6.6, Albumin 3.5, Globulin 3.1, Albumin/Globulin Ratio 1.1 I & O for Labs for Last 24 Hours: Intake & Output 10/10/24 10/11/24 10/12/24 10/13/24 11:59 11:59 11:59 11:59 Weight 145 lb Head: Present normocephalic Neck: Present normal inspection Respiratory: Present normal respiratory effort; Absent accessory muscle use Assessment and Plan *Assessment and plan (1) Intrahepatic cholestasis of : Status: Acute Qualifiers: Trimester: third trimester Qualified Code(s): O26.643 - Intrahepatic cholestasis of , third trimester Category: Medical Code(s): O26.649 - Intrahepatic cholestasis of , unspecified trimester (2) Dysphagia: Status: Acute Qualifiers: Dysphagia type: unspecified Qualified Code(s): R13.10 - Dysphagia, unspecified Category: Medical Code(s): R13.10 - Dysphagia, unspecified (3) Elevated liver enzymes: Status: Acute Category: Medical Code(s): R74.8 - Abnormal levels of other serum enzymes (4) History of section: Status: Acute Category: Surgical Code(s): Z98.891 - History of uterine scar from previous surgery (5) Hypomagnesemia: Status: Acute Category: Medical Code(s): E83.42 - Hypomagnesemia (6) Sinus tachycardia: Status: Acute Category: Medical Code(s): R00.0 - Tachycardia, unspecified (7) Hypokalemia: Status: Acute Category: Medical Code(s): E87.6 - Hypokalemia Plan Her potassium and magnesium are low today. We will infuse her today with potassium and magnesium as per the infusion protocols. She has a PICC line and she does complain of some pain. We will plan to have this changed in 48 hours time.
[2024-10-12 15:00] VITALS: BP 110/74; PULSE 116; RESP 18; TEMP 36.7; O2SAT 100; BMI 26.6
[2024-10-12] MEDS: LACTATED RINGERS 1000ML 500 ML 999 ML IV (15:27)
[2024-10-12] MEDS: ONDANSETRON 4MG/2ML VIAL 4 MG IV (15:28)
[2024-10-12] MEDS: MAGNESIUM SULFATE IN WATER 2 GM/50 ML PIGGYBACK IV ×3 (16:13→18:11)
[2024-10-12] MEDS: BETAMETHASONE ACET/PHOS 6MG/ML 5ML MDV 12 MG IM (17:47)
[2024-10-12] MEDS: PROMETHAZINE HCL 25MG/ML 1ML VIAL 12.5 MG IV (20:06)
[2024-10-12] MEDS: SODIUM CHLORIDE 0.9% 25ML BAG 25 ML IV (20:07)
[2024-10-12 23:15] VITALS: BP 109/67; PULSE 88; RESP 16; O2SAT 100
== END 2024-10-13 01:10 | disposition home or self-care (01) ==
LOC: OBOUT 11:25 → OB 11:28
PROVIDERS: PCP Nurse Practitioner Family; Visit Provider Nurse Practitioner Obstetrics & Gynecology
DX: Z34.83 Encounter for supervision of other normal pregnancy, third trimester (principal); Z3A.32 32 weeks gestation of pregnancy
CPT/HCPCS: 59025; 71045; 80053; 83735; 96372; 99212; G0463; J0702; J2405; J2550; J3475; J3480; J7120

== ENCOUNTER 2024-10-13 18:08 | Outpatient (CLI) | payer OTHER, SELFPAY ==
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
--- OUTSIDE RECORDS SUMMARY | 2024-08-19 13:59 | XMS_ITS | Encounter Summary ---
Author Organization [facility] Address [address] [place] [id number] Care Team Providers Care Housing Relocation Name Role Phone Ivyashlyn Norma FERNÁNDEZ Primary Care Provider + [phone] Reason for Visit * Reason Comments Vaginal Bleeding * Auth/Cert (Routine) Specialty Diagnoses / Procedures Referred By Contleyla t Referred To Contact Referral ID Status Reason Start Date Expiration Date Visits Re quested Visits Authorized [id number] 1 1 Encounter Details Date Type Department Care Team (Late st Contact Info) Description 08/19/2024 1:59 PM EDT - 08/20/2024 4:28 PM EDT Hospital Encounter [facility] [address] [place] [id number] Rob Wharton MD [address] [facility] [address] [place] [address] Blu Alvarado MD [address] [facility] [address] [place] [address] Dysphagia, unspecified type (Primary Dx) Discharge Disposition: Home or Self Care Social History Tobacco Use Types Packs/Day Years Used Date Smoking Tobacco: Never Smokeless Tobacco: Never Alcohol Use Standard Drinks/Week Comments Never 0 (1 standard drink = 0.6 oz pur e alcohol) [facility] Utilities Answer Date Recorded In the past 12 months has [employer], gas, oil, or water [employer] threatened to shut off services in your [...] all 05/28/2024 [facility] [place] [facility] Occupat ional Health - Occupational [...] 1:23 PM EDT Polly Lacey RN * [place] Suicide Severity Rating Scale (Screener/Recent Self-Report) Question [...] through Care Everywhere. * Second Trimester of (Liberian) * Upper Endoscopy Adult Care After (Liberian) documented in this encounter Medications at Time [...] 08/19/2024 RH Positive 08/19/2024 ABSCRN Negative 08/19/2024 [id number] non-reactive 04/12/2024 HEPCVIRUSABY negative 04/12/2024 URINECX Final [...] IUPC: Resting Tone: Resting Tone by IUPC: [place] Units: Cervix: Exam by: Method: sterile vaginal [...] from the original note were not included. [facility] Obstetric History and Physical Referring Provider: Rob hWarton* Chief Complaint Patient presents with Vaginal Bleeding [...] her third trimesters prior pregnancies(etiology unknown). 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 She states [...] IUPC: Resting Tone: Resting Tone by IUPC: [place] Units: Laboratory Results: Lab Results (last 24 [...] AM EDTAssociated Order(s): IP CONSULT TO GASTROENTEROLOGY [facility] Gastroenterology Consult Referring Provider: Dr. [...] expresses concern regarding recent CT scan at [facility] revealing a hiatal hernia. CT scan done prior to most recent due to ovarian cyst and incidentally revealed hiatal hernia. She reports chronic gastrointestinal symptoms. Review of medical record revealed prior GI referral due to blood per rectum. She reports colonoscopy in 2020 at outside facility that revealed diverticulosis and benign colon polyp. She is currently established with provider at [facility] for gastroenterology care she reports repeat [...] , await recommendations following EGD - consider DIP TANKER evaluation if no etiology for difficulty swallowing [...] from the original note were not included. [facility] Obstetric History and Physical Referring Provider: [...] her third trimesters prior pregnancies(etiology unknown). 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 She states [...] IUPC: Resting Tone: Resting Tone by IUPC: [place] Units: Laboratory Results: Lab Results (last 24 [...] Description 01/20/2025 3:30 PM EST Office Visit [facility] [address] [facility] [address] [address] Robbin Escalante MD [address] [facility] [address] [address] documented as of this encounter Procedures Procedure Name Priority Date/Time Associated Diagnosis Comments TISSUE PATHOLOGY EXAM Routine 08/20/2024 1:55 PM EDT Dysphagia, unspecified type AK ESOPHAGOGASTRODUODENOSCOP Y TRANSORAL DIAGNOSTIC 08/20/2024 1:44 PM EDT Dysphagia, unspecified type UPPER GI ENDOSCOPY 08/20/2024 1:09 PM EDT BASIC METABOLIC PANEL STAT 08/20/2024 5:25 AM EDT POTASSIUM STAT 08/19/2024 8:53 PM EDT ABORH 2ND SPECIMEN VERIFICATION STAT 08/19/2024 4:34 PM EDT NONSTRESS TEST Routine 08/19/2024 4:17 PM EDT [facility] Routine 08/19/2024 3:25 PM [...] EDT) Case Report Surgical Pathology Report Case: [id number] Authorizing Provider: Blu Alvarado MD Collected: 08/20/2024 01:55 PM Ordering Location: [facility] Received: 08/20/2024 02:14 PM ENDO SUITES Pathologist: Khalida Rhoades DO Specimen: Gastric, Antrum, antrum bx for path 08/22/2024 9:18 AM EDT [facility] Clinical Information Dysphagia, unspecified type 08/22/2024 9:18 AM EDT [facility] Final Diagnosis Stomach, antrum, biopsy: 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 pylori is negative (no organisms are identified) Negative for intestinal metaplasia, dysplasia, or malignancy 08/22/2024 9:18 AM EDT [facility] at 0918 EDT Gross Description 1. Gastric, Antrum. Received in formalin labeled antrum biopsy is a 0.4 x 0.2 x 0.2 cm pink-see soft tissue fragment submitted entirely in a single cassette. HDM 08/22/2024 9:18 AM EDT [facility] Microscopic Description The slides are reviewed and demonstrate histopathologic features supporting the above rendered diagnosis. 08/22/2024 9:18 AM EDT [facility] Tissue Pyloric antrum structure / Unknown 08/20/2024 1:55 PM EDT 08/20/2024 2:14 PM EDT us Blu Alvarado MD PATHOLOGY/CYTOLOGY ORDERABLES Final Result [facility]
[address] [place] [address], * Upper GI Endoscopy (08/20/2024 1:09 PM EDT) us Blu Alvarado MD INTERFACE NEEDS Final Result * (ABNORMAL) Basic Metabolic Panel (08/20/2024 5:25 AM EDT) Glucose 84 65 - 99 mg/dL 08/20/2024 6:13 AM EDT [facility] BUN 2.3(L) 6.0 - 20.0 mg/dL 08/20/2024 6:13 AM EDT [facility] Creatinine 0.51(L) 0.57 - 1.00 mg/dL 08/20/2024 6:13 AM EDT [facility] Sodium 139 136 - 145 mmol/L 08/20/2024 6:13 AM EDT [facility] Potassium 3.5 3.5 - 5.2 mmol/L 08/20/2024 6:13 AM EDT [facility] Chloride 109(H) 98 - 107 mmol/L 08/20/2024 6:13 AM EDT [facility] CO2 23.5 22.0 - 29.0 mmol/L 08/20/2024 6:13 AM EDT [facility] Calcium 7.8(L) 8.6 - 10.5 mg/dL 08/20/2024 6:13 AM EDT [facility] BUN/Creatinine Ratio 4.5(L) 7.0 - 25.0 08/20/2024 6:13 AM EDT [facility] Anion Gap 6.5 5.0 - 15.0 mmol/L 08/20/2024 6:13 AM T [facility] eGFR 126.6 >60.0 mL/min/1.7 3 08/20/2024 6:13 AM T [facility] Blood Venipuncture / Unknown 08/20/2024 5:25 AM EDT 08/20/2024 5:46 AM EDT [facility] - 08/20/2024 6:13 AM [...] ORDERABLES Final Resu lt Performing Organization Address City/[facility]/ZIP Co de Phone Number [facility]
[address] [place] [address], * (ABNORMAL) Potassium (08/19/2024 8:53 PM EDT) Potassium 2.7(L) 3.5 - 5.2 mmol/L 08/19/2024 9:20 PM EDT [facility] Blood Venipuncture / Unknown 08/19/2024 8:53 PM EDT 08/19/2024 9:04 PM EDT Kt Fan DO LAB BLOOD ORDERABLES Final Result Performing Organization Address [facility] Co de Phone Number [facility]
[address] [place] [address], * ABO RH Specimen Verification (08/19/2024 4:34 PM EDT) ABO Type O 08/19/2024 7:39 PM EDT [facility] RH type Positive 08/19/2024 7:39 PM EDT [facility] Blood Venipuncture / Unknown 08/19/2024 4:34 PM EDT 08/19/2024 4:53 PM EDT Rob Wharton MD BLOOD BANK TEST ORDER FRANCO Final Result Performing Organization Address City/[facility]/ZIP Co de Phone Number [facility]
[address] [place] [address], * [facility] (08/19/2024 3:25 PM EDT) Anatomical Region Laterality Modality Ultrasound 08/19/2024 3:09 PM EDT Narrative 08/19/2024 4:54 PM EDT PAT NAME: CAROLE GIRARD MED REC#: [id number] DA: 1990 PAT GEND: F PAT TYPE: E EXAM TRAVIS: [id number] REF PHYS ROB WHARTON Comparison Studies The [...] EFW (oz) 9 oz EFW by: Hadlock ([id number]) Extended Cav. septi pel. tr 4.7 mm Escort Vehicle Driver 3.8 mm CM 7.5 mm 84% Nicolaides [...] Heart / Thorax 3-vessel view: Appears normal 0-gzubpg-ruhsifg view: Appears normal Stomach: Appears normal Kidneys: [...] in 4wks for growth. Coding ======= Description: 69118-14 Follow Up Hat Former: RT Annetta Hratmann , [facility] Physician: Jo Chappell MD Electronically signed by: Jo Chappell MD at: 16:54 Procedure Note Jo Chappell MD - 08/19/2024 PAT NAME: CRAOLE GIRARD MED REC#: [id number] DA: 1990 PAT GEND: F PAT TYPE: E EXAM TRAVIS: [id number] REF PHYS ROB WHARTON Comparison Studies The findings of this study are compared to the prior ultrasound studydated 07/22/24 Patient Status Inpatient Indication ======== History of c/s x1. History of . Vaginal bleeding. Maternal Assessment Sxgsap741 cm Height (ft)5 ft Height (in)4 in Uxidrz94 kg Weight (lb)158 lb BMI27.31 kg/m Method ======= Transabdominal ultrasound examination. View: Limited by patient bodyhabitus ========= Love . Number of fetuses: 1 Dating ====== Method of dating:based on stated DUSTY GA by prior bckipwfqkn32 w + 1 d DUSTY by prior [...] Hadlock Femur44.9 mm 24w 6d 27% Hadlock Whpudua21.3 mm 25w 3d 50% Jamal HC / AC1.16 GLP275 g 24w 2d 16% Hadlock EFW (lb)1 lb EFW (oz)9 oz EFW by:Hadlock ([id number]) Extended Cav. septi pel. tr4.7 mm Vp3.8 mm CM7.5 mm 84% Nicolaides Head / Face / Neck Cephalic index0.71 <1% Nicolaides Extremities / Bony Struc FL / BPD0.78 FL / HC0.20 FL / AC0.23 Other Structures [id number] bpm General Evaluation Cardiac activity present. FHR [...] normal Heart / Thorax 3-vessel view:Appears normal 7-wpdnyx-gdkyxuj view:Appears normal Stomach:Appears normal Kidneys:Appears normal Bladder:Appears normal Gender:female Wants to know gender:yes Maternal Structures Uterus / Cervix Cervix:Visualized Approach:Transabdominal Cervical ozdjru97.9 mm Doppler Arterial Umbilical A PI1.01 32% [...] office in 4wks for growth. Coding ======= Description:34584-22 Follow Up Hat Former: RT Annetta Hartmann , RDMS Physician: Jo [...] lt [facility]
[address] [place] [address], [place] [phone] * (ABNORMAL) Magnesium (08/19/2024 3:02 PM EDT) Magnesium 1.5(L) 1.6 - 2.6 mg/dL 08/19/2024 5:12 PM EDT [facility] Blood Line / Unknown 08/19/2024 3: 02 PM EDT 08/19/2024 3:10 PM EDT Kt Fan DO LAB BLOOD ORDERABLES Final Result [facility]
[address] [place] [address], [place] [phone] * Urinalysis, Microscopic Only - Urine, Clean Catch (08/19/2024 3:02 PM EDT) RBC, UA 0-2 None Seen, 0-2 /HPF 08/19/2024 3:33 PM EDT [facility] WBC, UA 0-2 None Seen, 0-2 /HPF 08/19/2024 3:33 PM EDT [facility] Bacteria, UA None Seen None Seen /HPF 08/19/2024 3:33 PM EDT [facility] Squamous Epithelial Cells, UA 0-2 None Seen, 0-2 /HPF 08/19/2024 3:33 PM EDT [facility] Hyaline Casts, UA None Seen None Seen /LPF 08/19/2024 3:33 PM EDT [facility] Methodology Automated Microscopy 08/19/2024 3:33 PM EDT [facility] Urine Urine specimen obtained by clean catch procedure / Unknown Collection / Unknown 08/19/2024 3:02 PM EDT 08/19/2024 3:13 PM EDT us Kt Fan DO URINE ORDERABLES Final Resu lt [facility]
[address] [place] [address], * (ABNORMAL) CBC Auto Differential (08/19/2024 3:02 PM EDT) WBC 9.19 3.40 - 10.80 10*3/mm3 08/19/2024 3:23 PM EDT [facility] RBC 3.58(L) 3.77 - 5.28 10*6/mm3 08/19/2024 3:23 PM EDT [facility] Hemoglobin 10.5(L) 12.0 - 15.9 g/dL 08/19/2024 3:23 PM EDT [facility] Hematocrit 31.4(L) 34.0 - 46.6 % 08/19/2024 3:23 PM EDT [facility] MCV 87.7 79.0 - 97.0 fL 08/19/2024 3:23 PM EDT [facility] MCH 29.3 26.6 - 33.0 pg 08/19/2024 3:23 PM EDT [facility] MCHC 33.4 31.5 - 35.7 g/dL 08/19/2024 3:23 PM EDT [facility] RDW 13.4 12.3 - 15.4 % 08/19/2024 3:23 PM EDT [facility] RDW-SD 42.4 37.0 - 54.0 fl 08/19/2024 3:23 PM EDT [facility] MPV 12.0 6.0 - 12.0 fL 08/19/2024 3:23 PM EDT [facility] Platelets 241 140 - 450 10*3/mm3 08/19/2024 3:23 PM EDT [facility] Neutrophil % 66.8 42.7 - 76.0 % 08/19/2024 3:23 PM EDT [facility] Lymphocyte % 24.4 19.6 - 45.3 % [facility] Monocyte % 7.6 5.0 - 12.0 % 08/19[facility]2024 [facility] Eosinophil % 0.7 0.3 - 6.2 % 08/19/2024 3:[facility] Basophil % 0.2 0.0 - 1.5 % 08/19[facility]2024 3:[facility] Immature Grans % 0.3 0.0 - 0.5 % 08/19/2024 3:[facility] Neutrophils, Absolute 6.14 1.70 - 7.00 10*3/mm3 08/19/2024 3:[facility] Lymphocytes, Absolute 2.24 0.70 - 3.10 10*3/mm3 08/19/2024 3:23 PM EDT [facility] Monocytes, Absolute 0.70 0.10 - 0.90 10*3/mm3 08/19/2024 3:23 PM EDT [facility] Eosinophils, Absolute 0.06 0.00 - 0.40 10*3/mm3 08/19/2024 3:[facility] Basophils, Absolute 0.02 0.00 - 0.20 10*3/mm3 08/19/2024 3:23 PM EDT [facility] Immature Grans, Absolute 0.03 0.00 - 0.05 10*3/mm3 08/19/2024 3:23 PM EDT [facility] nRBC 0.0 0.0 - 0.2 /100 WBC 08/19/2024 3:23 PM EDT [facility] Blood Line / Unknown 08/19/2024 3: 02 PM EDT 08/19/2024 3:10 PM EDT Kt Fan DO LAB BLOOD ORDERABLES Final Result [facility]
[address] [place] [address], * (ABNORMAL) Urinalysis With Microscopic If Indicated (No Culture) - Urine, Clean Catch (08/19/2024 3:02 PM EDT) Color, UA Yellow Yellow, Straw 08/19/2024 3:33 PM EDT [facility] Appearance, UA Clear Clear 08/19/2024 3:33 PM EDT [facility] pH, UA >=9.0(H) 5.0 - 8.0 08/19/2024 3:33 PM EDT [facility] Specific [place], UA 1.018 1.005 - 1.030 08/19/2024 3:33 PM EDT [facility] Glucose, UA Negative Negative 08/19/2024 3:33 PM EDT [facility] Ketones, UA 15 mg/dL (1+)(A) Negative 08/19/2024 3:33 PM EDT [facility] Bilirubin, UA Negative Negative 08/19/2024 3:33 PM EDT [facility] Blood, UA Negative Negative 08/19/2024 3:33 PM EDT [facility] Protein, UA 30 mg/dL (1+)(A) Negative 08/19/2024 3:33 PM EDT [facility] Leuk Esterase, UA Negative Negative 08/19/2024 3:33 PM EDT [facility] Nitrite, UA Negative Negative 08/19/2024 3:33 PM EDT [facility] Urobilinogen, UA 1.0 E.U./dL 0.2 - 1.0 E.U./dL 08/19/2024 3:33 PM EDT [facility] Urine Urine specimen obtained by clean catch procedure / Unknown Collection / Unknown 08/19/2024 3:02 PM EDT 08/19/2024 3:13 PM EDT us Kt Fan DO URINE ORDERABLES Final Resu lt Performing Organization Address City/[facility]/ZIP Co de Phone Number [facility]
[address] [place] [address], [place] [phone] * Amylase (08/19/2024 3:02 PM EDT) Amylase 73 28 - 100 U/L 08/19/2024 3:36 PM EDT [facility] Blood Line / Unknown 08/19/2024 3: 02 PM EDT 08/19/2024 3:10 PM EDT us Kt Fan DO LAB BLOOD ORDERABLES Final Result Performing Organization Address [facility] Co de Phone Number [facility]
[address] [place] [address], [place] [phone] * Lipase (08/19/2024 3:02 PM EDT) Lipase 13 13 - 60 U/L 08/19/2024 3:36 PM EDT [facility] Blood Line / Unknown 08/19/2024 3: 02 PM EDT 08/19/2024 3:10 PM EDT us Kt Fan DO LAB BLOOD ORDERABLES Final Result Performing Organization Address City/[facility]/ZIP Co de Phone Number [facility]
[address] [place] [address], * (ABNORMAL) Comprehensive Metabolic Panel (08/19/2024 3:02 PM EDT) [facility] Glucose 75 65 - 99 mg/dL 08/19/2024 3:38 PM EDT [facility] BUN 3.6(L) 6.0 - 20.0 mg/dL 08/19/2024 3:38 PM EDT [facility] Creatinine 0.51(L) 0.57 - 1.00 mg/dL 08/19/2024 3:38 PM EDT [facility] Sodium 137 136 - 145 mmol/L 08/19/2024 3:38 PM EDT [facility] Potassium 2.6(LL) 3.5 - 5.2 mmol/L 08/19/2024 3:38 PM EDT [facility] Comment:Specimen hemolyzed. Result may be falsely elevated. Chloride 99 98 - 107 mmol/L 08/19/2024 3:38 PM EDT [facility] CO2 24.2 22.0 - 29.0 mmol/L 08/19/2024 3:38 PM EDT [facility] Calcium 8.8 8.6 - 10.5 mg/dL 08/19/2024 3:38 PM EDT [facility] Total Protein 6.6 6.0 - 8.5 g/dL 08/19/2024 3:38 PM EDT [facility] Albumin 3.4(L) 3.5 - 5.2 g/dL 08/19/2024 3:38 PM EDT [facility] ALT (SGPT) 10 1 - 33 U/L 08/19/2024 3:38 PM EDT [facility] AST (SGOT) 22 1 - 32 U/L 08/19/2024 3:38 PM EDT [facility] Alkaline Phosphatase 64 39 - 117 U/L 08/19/2024 3:38 PM EDT [facility] Total Bilirubin 0.5 0.0 - 1.2 mg/dL 08/19/2024 3:38 PM EDT [facility] Globulin 3.2 gm/dL 08/19/2024 3:38 PM EDT [facility] Comment:Calculated Result A/G Ratio 1.1 g/dL 08/19/2024 3:38 PM EDT [facility] BUN/Creatinine Ratio 7.1 7.0 - 25.0 08/19/2024 3:38 PM EDT [facility] Anion Gap 13.8 5.0 - 15.0 mmol/L 08/19/2024 3:38 PM EDT [facility] eGFR 126.6 >60.0 mL/min/1.7 3 08/19/2024 3:38 PM EDT [facility] Blood Line / Unknown 08/19/2024 3: 02 PM EDT 08/19/2024 3:10 PM EDT Narrative [facility] - 08/19/2024 3:38 PM EDT [...] Fan DO LAB BLOOD ORDERABLES Final Result [facility]
[address] [place] [address], * Type & Screen (08/19/2024 3:02 PM EDT) ABO Type O 08/19/2024 3:51 PM EDT [facility] RH type Positive 08/19/2024 3:51 PM EDT [facility] Antibody Screen Negative 08/19/2024 3:51 PM EDT [facility] T&S Expiration Date 08/22/2024 11:59:59 PM 08/19/2024 3:51 PM EDT [facility] Blood Line / Unknown 08/19/2024 3: 02 PM EDT 08/19/2024 3:15 PM EDT Kt aFn DO BLOOD BANK TEST ORDERABLES Edited Result - Final [facility]
[address] [place] [address], documented in this encounter Visit Diagnoses Diagnosis [...] documented as of this encounter Care Teams Housing Relocation Relationship Specialty Start Date End Date Norma Friedman APRN [address] [place]3 RAFAELA APPIAH [address] PCP - General Family Medicine 05/14/24 documented as of this encounter
--- OUTSIDE RECORDS SUMMARY | 2024-08-20 13:33 | XMS_ITS | Encounter Summary ---
[facility] Address [address] [place] [address] Care Team Providers Care Horse Wrangler Name Role Phone Norma Friedman APRN Primary Care Provider + [phone] Reason for Visit * Reason Comments Vaginal Bleeding * Auth/Cert (Routine) Specialty Diagnoses / Procedures Referred By Tarik t Referred To Contact Referral ID Status Reason Start Date Expiration Date Visits Re quested Visits Authorized [id number] 1 1 Encounter Details Date Type Department Care Team (Late st Contact Info) Description 08/20/2024 1:33 PM EDT - 08/20/2024 2:05 PM EDT Surgery [facility] ENDO SUITES [address] [place] [address] Blu Alvarado MD [address] [facility] [address] [place] [address] ESOPHAGOGASTRODUODENOSCOPY [13288 (CPT )] Social History Tobacco Use Types Packs/Day Years Used Date Smoking Tobacco: Never Smokeless Tobacco: Never Alcohol Use Standard Drinks/Week Comments Never 0 (1 standard drink = 0.6 oz pur e alcohol) [facility] Utilities Answer Date Recorded In the [...] and heating? Not hard at all 05/28/2024 [facility] - Occupational Stress Questionnaire Answer Date Recorded [...] GED or equivalent No 05/28/2024 Preferred Language Chadian 05/28/2024 PHQ-2 Answer Date Recorded Patient Health [...] 1:23 PM EDT Polly Lacey RN * [place] Suicide Severity Rating Scale (Screener/Recent Self-Report) Question [...] Labs [facility] Results Pending at Discharge Pending Labs Order Current Status Tissue Pathology Exam In process Rob Wharton MD 08/20/24 15:36 EDT Time: Discharge <30 min documented in this encounter Discharge Instructions * Attachments The following attachments cannot be sent through Care Everywhere. * Second Trimester of (Chadian) * Upper Endoscopy Adult Care After (Chadian) documented in this encounter Medications at Time [...] 08/19/2024 RH Positive 08/19/2024 ABSCRN Negative 08/19/2024 [id number] non-reactive 04/12/2024 HEPCVIRUSABY negative 04/12/2024 URINECX Final [...] IUPC: Resting Tone: Resting Tone by IUPC: [place] Units: Cervix: Exam by: Method: sterile vaginal [...] in this encounter H&P Notes * Kt Fna DO - 08/19/2024 4:18 PM EDT Potassium 2.6, replace potassium start proton pump inhibitors every 12, and GI consult. Source Note - Kt Fan DO - 08/19/2024 2:58 PM EDT Images from the original note were not included. [facility] Obstetric History and Physical Referring [...] third trimesters prior pregnancies(etiology unknown). 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 She states has never had a EGD [...] IUPC: Resting Tone: Resting Tone by IUPC: [place] Units: Laboratory Results: Lab Results (last 24 [...] AM EDTAssociated Order(s): IP CONSULT TO GASTROENTEROLOGY [facility] Gastro[facility]ology Consult Referring Provider: Dr. Fan/Dr. Wharton [...] expresses concern regarding recent CT scan at [facility] revealing a hiatal hernia. CT scan done prior to most recent due to ovarian cyst and incidentally revealed hiatal hernia. She reports chronic gastrointestinal symptoms. Review of medical record revealed prior GI referral due to blood per rectum. She reports colonoscopy in 2020 at outside facility that revealed diverticulosis and benign colon polyp. She is currently established with provider at [facility] for gastroenterology care she reports [...] , await recommendations following EGD - consider FURNITURE DUSTER evaluation if no etiology for difficulty swallowing [...] from the original note were not included. [facility] Obstetric History and Physical Referring [...] third trimesters prior pregnancies(etiology unknown). 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 She states has never had a EGD [...] IUPC: Resting Tone: Resting Tone by IUPC: [place] Units: Laboratory Results: Lab Results (last 24 [...] Visit [facility] GASTRO[facility]OLOGY [address] [id number] Robbin Escalante MD [address] [address] documented as of this encounter Procedures Procedure [...] NONSTRESS TEST Routine 08/19/2024 4:17 PM EDT [facility] Routine 08/19/2024 3:25 PM [...] EDT) Case Report Surgical Pathology Report Case: [id number] Authorizing Provider: Blu Alvarado MD Collected: 08/20/2024 01:55 PM Ordering Location: [facility] Received: 08/20/2024 02:14 PM ENDO SUITES Pathologist: Khalida Rhoades DO Specimen: Gastric, Antrum, antrum bx for path 08/22/2024 9:18 AM EDT [facility] Clinical Information Dysphagia, unspecified type 08/22/2024 9:18 AM EDT [facility] Final Diagnosis Stomach, antrum, biopsy: 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 pylori is negative (no organisms are identified) Negative for intestinal metaplasia, dysplasia, or malignancy 08/22/2024 9:18 AM EDT [facility] at 0918 EDT Gross Description 1. Gastric, Antrum. Received in formalin labeled antrum biopsy is a 0.4 x 0.2 x 0.2 cm pink-see soft tissue fragment submitted entirely in a single cassette. HDM 08/22/2024 9:18 AM EDT [facility] Microscopic Description The slides are reviewed and demonstrate histopathologic features supporting the above rendered diagnosis. 08/22/2024 9:18 AM EDT [facility] Tissue Pyloric antrum structure / Unknown 08/20/2024 1:55 PM EDT 08/20/2024 2:14 PM EDT us Blu Alvarado MD PATHOLOGY/CYTOLOGY ORDERABLES Final Result [facility]
[address] [place] [address], * Upper GI Endoscopy (08/20/2024 1:09 PM EDT) us Blu Alvarado MD INTERFACE NEEDS Final Result * (ABNORMAL) Basic Metabolic Panel (08/20/2024 5:25 AM EDT) Glucose 84 65 - 99 mg/dL 08/20/2024 6:13 AM EDT [facility] BUN 2.3(L) 6.0 - 20.0 mg/dL 08/20/2024 6:13 AM T [facility] Creatinine 0.51(L) 0.57 - 1.00 mg/dL 08/20/2024 6:13 AM [facility] Sodium 139 136 - 145 mmol/L 08/20/2024 6:13 AM EDT [facility] Potassium 3.5 3.5 - 5.2 mmol/L 08/20/2024 6:13 AM EDT [facility] Chloride 109(H) 98 - 107 mmol/L 08/20/2024 6:13 AM [facility] CO2 23.5 22.0 - 29.0 mmol/L 08/20/2024 6:13 AM [facility] Calcium 7.8(L) 8.6 - 10.5 mg/dL 08/20/2024 6:13 AM [facility] BUN/Creatinine Ratio 4.5(L) 7.0 - 25.0 08/20/2024 6:13 AM [facility] Anion Gap 6.5 5.0 - 15.0 mmol/L 08/20/2024 6:13 AM [facility] eGFR 126.6 >60.0 mL/min/1.7 3 08/20/2024 6:13 AM [facility] Blood Venipuncture / Unknown 08/20/2024 5:25 AM EDT 08/20/2024 5:46 AM T [facility] LABORATORY - 08/20/2024 6:13 AM [...] [facility]/ZIP Co de Phone Number [facility]
[address] [place] [address], * (ABNORMAL) Potassium (08/19/2024 8:53 PM EDT) Potassium 2.7(L) 3.5 - 5.2 mmol/L 08/19/2024 9:20 PM EDT [facility] Blood Venipuncture / Unknown 08/19/2024 8:53 PM EDT 08/19/2024 9:04 PM EDT Kt Fan DO LAB BLOOD ORDERABLES Final Result Performing Organization Address [facility] Co de Phone Number [facility]
[address] [place] [address], * ABO RH Specimen Verification (08/19/2024 4:34 PM EDT) ABO Type O 08/19/2024 7:39 PM EDT [facility] RH type Positive 08/19/2024 7:39 PM EDT [facility] Blood Venipuncture / Unknown 08/19/2024 4:34 PM EDT 08/19/2024 4:53 PM EDT Rob Wharton MD BLOOD BANK TEST ORDER FRANCO Final Result Performing Organization Address City/[facility]/ZIP Co de Phone Number [facility]
[address] [place] [address], * [facility] (08/19/2024 3:25 PM EDT) Anatomical Region Laterality Modality Ultrasound 08/19/2024 3:09 PM EDT Narrative 08/19/2024 4:54 PM EDT PAT NAME: CAROLE GIRARD MED REC#: [id number] DA: 1990 PAT GEND: F PAT TYPE: E EXAM TRAVIS: [id number] REF PHYS ROB WHARTON Comparison Studies The [...] EFW (oz) 9 oz EFW by: Hadlock ([id number]) Extended Cav. septi pel. tr 4.7 mm Sounding Device Operator 3.8 mm CM 7.5 mm 84% [...] Heart / Thorax 3-vessel view: Appears normal 6-yixftn-dksghhn view: Appears normal Stomach: Appears normal Kidneys: [...] in 4wks for growth. Coding ======= Description: 21989-89 Follow Up Interactive Media Marketing Specialist: Alison Verduzco RT R , MS Physician: Jo Chappell MD Electronically signed by: Jo Chappell MD at: 16:54 Procedure Note Jo Chappell MD - 08/19/2024 PAT NAME: CAROLE GIRARD MED REC#: [id number] DA: [id number] PAT GEND: F PAT TYPE: E EXAM TRAVIS: [id number] REF PHYS ROB WHARTON Comparison Studies The findings of this study are compared to the prior ultrasound studydated 07/22/24 Patient Status Inpatient Indication ======== History of c/s x1. History of . Vaginal bleeding. Maternal Assessment [id number] cm Height (ft)5 ft Height (in)4 in Pnkugq91 kg Weight (lb)158 lb BMI27.31 kg/m Method [...] GA25 w + 1 d Assigned DUSTY:12/01/2024 [id number] d Biometry Standard BPD57.6 mm 23w 4d 5% Hadlock OFD81.6 mm 26w 4d 88% Jamal HC225.7 mm 24w 4d 13% Hadlock Cerebellum tr28.9 mm 25w 2d 62% Hill AC194.9 mm 24w 1d 15% Hadlock Femur44.9 mm 24w 6d 27% Hadlock Uzcncrc31.3 mm 25w 3d 50% Jamal HC / AC1.16 QPT264 g 24w 2d 16% Hadlock EFW (lb)1 lb EFW (oz)9 oz EFW by:Hadlock ([id number]) Extended Cav. septi pel. tr4.7 mm Vp3.8 mm CM7.5 mm 84% Nicolaides Head / Face / Neck Cephalic index0.71 <1% Nicolaides Extremities / Bony Struc FL / BPD0.78 FL / HC0.20 FL / AC0.23 Other Structures [id number] bpm General Evaluation Cardiac activity present. FHR [...] normal Heart / Thorax 3-vessel view:Appears normal 0-bdmznv-qeapafo view:Appears normal Stomach:Appears normal Kidneys:Appears normal Bladder:Appears normal Gender:female Wants to know gender:yes Maternal Structures Uterus / Cervix Cervix:Visualized Approach:Transabdominal Cervical yokmuy09.9 mm Doppler Arterial Umbilical A PI1.01 32% [...] office in 4wks for growth. Coding ======= Description:01348-26 Follow Up Interactive Media Marketing Specialist: RT Annetta Hartmann , [facility] Physician: Jo Chappell MD Electronically signed by: Jo Chappell MD at: 16:54 us Kt Fan DO [facility] US ORDERABLES Final Res ult * Protein / Creatinine Ratio, Urine - Urine, Clean Catch (08/19/2024 3:02 PM EDT) Protein/Creati nine Ratio, Urine 126.1 0.0 - 200.0 mg/G Crea 08/20/2024 12:47 AM EDT [facility] Creatinine, Urine 148.3 mg/dL 08/20/2024 12:47 AM EDT [facility] Total Protein, Urine 18.7 mg/dL 08/20/2024 12:47 AM EDT [facility] Urine Urine specimen obtained by clean catch procedure / Unknown Collection / Unknown 08/19/2024 3:02 PM EDT 08/19/2024 4:26 PM EDT Kt Fan DO URINE ORDERABLES Final Resu lt [facility]
[address] [place] [address], [place] [phone] * (ABNORMAL) Magnesium (08/19/2024 3:02 PM EDT) Magnesium 1.5(L) 1.6 - 2.6 mg/dL 08/19/2024 5:12 PM EDT [facility] Blood Line / Unknown 08/19/2024 3: 02 PM EDT 08/19/2024 3:10 PM EDT Kt Fan DO LAB BLOOD ORDERABLES Final Result Performing Organization Address City/[facility]/ZIP Co de Phone Number [facility]
[address] [place] [address], [place] [phone] * Urinalysis, Microscopic Only - Urine, Clean Catch (08/19/2024 3:02 PM EDT) RBC, UA 0-2 None Seen, 0-2 /HPF 08/19/2024 3:33 PM EDT [facility] WBC, UA 0-2 None Seen, 0-2 /HPF 08/19/2024 3:33 PM EDT [facility] Bacteria, UA None Seen None Seen /HPF 08/19/2024 3:33 PM EDT [facility] Squamous Epithelial Cells, UA 0-2 None Seen, 0-2 /HPF 08/19/2024 3:33 PM EDT [facility] Hyaline Casts, UA None Seen None Seen /LPF 08/19/2024 3:33 PM EDT [facility] Methodology Automated Microscopy 08/19/2024 3:33 PM EDT [facility] Urine Urine specimen obtained by clean catch procedure / Unknown Collection / Unknown 08/19/2024 3:02 PM EDT 08/19/2024 3:13 PM EDT tK Fan DO URINE ORDERABLES Final Resu lt [facility]
[address] [place] [address], * (ABNORMAL) CBC Auto Differential (08/19/2024 3:02 PM EDT) WBC 9.19 3.40 - 10.80 10*3/mm3 08/19/2024 3:23 PM EDT [facility] RBC 3.58(L) 3.77 - 5.28 10*6/mm3 08/19/2024 3:23 PM EDT [facility] Hemoglobin 10.5(L) 12.0 - 15.9 g/dL 08/19/2024 3:23 PM EDT [facility] Hematocrit 31.4(L) 34.0 - 46.6 % 08/19/2024 3:23 PM EDT [facility] MCV 87.7 79.0 - 97.0 fL 08/19/2024 3:23 PM EDT [facility] MCH 29.3 26.6 - 33.0 pg 08/19/2024 3:23 PM EDT [facility] MCHC 33.4 31.5 - 35.7 g/dL 08/19/2024 3:23 PM EDT [facility] RDW 13.4 12.3 - 15.4 % 08/19/2024 3:23 PM EDT [facility] RDW-SD 42.4 37.0 - 54.0 fl 08/19/2024 3:23 PM EDT [facility] MPV 12.0 6.0 - 12.0 fL 08/19/2024 3:23 PM EDT [facility] Platelets 241 140 - 450 10*3/mm3 08/19/2024 3:23 PM EDT [facility] Neutrophil % 66.8 42.7 - 76.0 % 08/19/2024 3:23 PM EDT [facility] Lymphocyte % 24.4 19.6 - 45.3 % 08/19/2024 3:23 PM EDT [facility] Monocyte % 7.6 5.0 - 12.0 % 08/19/2024 3:23 PM EDT [facility] Eosinophil % 0.7 0.3 - 6.2 % 08/19/2024 3:23 PM EDT [facility] Basophil % 0.2 0.0 - 1.5 % 08/19/2024 3:23 PM EDT [facility] Immature Grans % 0.3 0.0 - 0.5 % 08/19/2024 3:23 PM EDT [facility] Neutrophils, Absolute 6.14 1.70 - 7.00 10*3/mm3 08/19/2024 3:23 PM EDT [facility] Lymphocytes, Absolute 2.24 0.70 - 3.10 10*3/mm3 08/19/2024 3:23 PM EDT [facility] Monocytes, Absolute 0.70 0.10 - 0.90 10*3/mm3 08/19/2024 3:23 PM EDT [facility] Eosinophils, Absolute 0.06 0.00 - 0.40 10*3/mm3 08/19/2024 3:23 PM EDT [facility] Basophils, Absolute 0.02 0.00 - 0.20 10*3/mm3 08/19/2024 3:23 PM EDT [facility] Immature Grans, Absolute 0.03 0.00 - 0.05 10*3/mm3 08/19/2024 3:23 PM EDT [facility] nRBC 0.0 0.0 - 0.2 /100 WBC 08/19/2024 3:23 PM EDT [facility] Blood Line / Unknown 08/19/2024 3: 02 PM EDT 08/19/2024 3:10 PM EDT Kt Fan DO LAB BLOOD ORDERABLES Final Result [facility]
[address] [place] [address], * (ABNORMAL) Urinalysis With Microscopic If Indicated (No Culture) - Urine, Clean Catch (08/19/2024 3:02 PM EDT) Color, UA Yellow Yellow, Straw 08/19/2024 3:33 PM EDT [facility] Appearance, UA Clear Clear 08/19/2024 3:33 PM EDT [facility] pH, UA >=9.0(H) 5.0 - 8.0 08/19/2024 3:33 PM EDT [facility] Specific [place], UA 1.018 1.005 - 1.030 08/19/2024 3:33 PM EDT [facility] Glucose, UA Negative Negative 08/19/2024 3:33 PM EDT [facility] Ketones, UA 15 mg/dL (1+)(A) Negative 08/19/2024 3:33 PM EDT [facility] Bilirubin, UA Negative Negative 08/19/2024 3:33 PM EDT [facility] Blood, UA Negative Negative 08/19/2024 3:33 PM EDT [facility] Protein, UA 30 mg/dL (1+)(A) Negative 08/19/2024 3:33 PM EDT [facility] Leuk Esterase, UA Negative Negative 08/19/2024 3:33 PM EDT [facility] Nitrite, UA Negative Negative 08/19/2024 3:33 PM EDT [facility] Urobilinogen, UA 1.0 E.U./dL 0.2 - 1.0 E.U./dL 08/19/2024 3:33 PM EDT [facility] Urine Urine specimen obtained by clean catch procedure / Unknown Collection / Unknown 08/19/2024 3:02 PM EDT 08/19/2024 3:13 PM EDT us Kt Fan DO URINE ORDERABLES Final Resu lt [facility]
[address] [place] [address], [place] [phone] * Amylase (08/19/2024 3:02 PM EDT) Amylase 73 28 - 100 U/L 08/19/2024 3:36 PM EDT [facility] Blood Line / Unknown 08/19/2024 3: 02 PM EDT 08/19/2024 3:10 PM EDT us Kt Fan DO LAB BLOOD ORDERABLES Final Result Performing Organization Address [facility] Co de Phone Number [facility]
[address] [place] [address], [place] [phone] * Lipase (08/19/2024 3:02 PM EDT) Lipase 13 13 - 60 U/L 08/19/2024 3:36 PM EDT [facility] Blood Line / Unknown 08/19/2024 3: 02 PM EDT 08/19/2024 3:10 PM EDT us Kt Fan DO LAB BLOOD ORDERABLES Final Result Performing Organization Address City/[facility]/ZIP Co de Phone Number [facility]
[address] [place] [address], [place] [phone] * (ABNORMAL) Comprehensive Metabolic Panel (08/19/2024 3:02 PM EDT) Glucose 75 65 - 99 mg/dL 08/19/2024 3:38 PM EDT [facility] BUN 3.6(L) 6.0 - 20.0 mg/dL 08/19/2024 3:38 PM T [facility] Creatinine 0.51(L) 0.57 - 1.00 mg/dL 08/19/2024 3:38 PM EDT [facility] Sodium 137 136 - 145 mmol/L 08/19/2024 3:38 PM T [facility] Potassium 2.6(LL) 3.5 - 5.2 mmol/L 08/19/2024 3:38 PM [facility] Comment:Specimen hemolyzed. Result may be falsely elevated. Chloride 99 98 - 107 mmol/L 08/19/2024 3:38 PM [facility] CO2 24.2 22.0 - 29.0 mmol/L 08/19/2024 3:38 PM T [facility] Calcium 8.8 8.6 - 10.5 mg/dL 08/19/2024 3:38 PM T [facility] Total Protein 6.6 6.0 - 8.5 g/dL 08/19/2024 3:38 PM [facility] Albumin 3.4(L) 3.5 - 5.2 g/dL 08/19/2024 3:38 PM [facility] ALT (SGPT) 10 1 - 33 U/L 08/19/2024 3:38 PM T [facility] AST (SGOT) 22 1 - 32 U/L 08/19/2024 3:38 PM T [facility] Alkaline Phosphatase 64 39 - 117 U/L 08/19/2024 3:38 PM [facility] Total Bilirubin 0.5 0.0 - 1.2 mg/dL 08/19/2024 3:38 PM T [facility] Globulin 3.2 gm/dL 08/19/2024 3:38 PM T [facility] Comment:Calculated Result A/G Ratio 1.1 g/dL 08/19/2024 3:38 PM EDT [facility] BUN/Creatinine Ratio 7.1 7.0 - 25.0 08/19/2024 3:38 PM EDT [facility] Anion Gap 13.8 5.0 - 15.0 mmol/L 08/19/2024 3:38 PM EDT [facility] eGFR 126.6 >60.0 mL/min/1.7 3 08/19/2024 3:38 PM EDT [facility] Blood Line / Unknown 08/19/2024 3: 02 PM EDT 08/19/2024 3:10 PM EDT [facility] LABORAT[facility] - 08/19/2024 3:38 PM [...] Fan DO LAB BLOOD ORDERABLES Final Result [facility]
[address] [place] [address], * Type & Screen (08/19/2024 3:02 PM EDT) ABO Type O 08/19/2024 3:51 PM EDT [facility] RH type Positive 08/19/2024 3:51 PM EDT [facility] Antibody Screen Negative 08/19/2024 3:51 PM EDT [facility] T&S Expiration Date 08/22/2024 11:59:59 PM 08/19/2024 3:51 PM EDT [facility] Blood Line / Unknown 08/19/2024 3: 02 PM EDT 08/19/2024 3:15 PM EDT Kt Fan DO BLOOD BANK TEST ORDERABLES Edited Result - Final [facility]
[address] [place] [address], documented in this encounter Visit Diagnoses Diagnosis [...] BPA Driven Protocol Open Order & Select [facility] Electrolyte Replacement Protocol Algorithm to [...] unable to swallow. 1903 (Given - Provider: Pilra Verduzco, BR[place]) 0608 (Given - Provider: Yun [...] documented as of this encounter Care Teams Horse Wrangler Relationship Specialty Start Date End Date Norma Friedman APRN [address] [place] G3 RAFAELA APPIAH [address] PCP - General Family Medicine 05/14/24 documented as of this encounter
--- OUTSIDE RECORDS SUMMARY | 2024-08-20 13:44 | XMS_ITS | Encounter Summary ---
[facility] Address [address] [place] [id number] Care Team Providers Care Food And Beverage Intern Name Role Phone IvyKade goldbergdev FERNÁNDEZ Primary Care Provider + [phone] Reason for Visit * Auth/Cert (Routine) Specialty Diagnoses / Procedures Referred By Contac t Referred To Contact Referral ID Status Reason Start Date Expiration Date Visits Re quested Visits Authorized 1 1 Encounter Details Date Type Department Care Team (Late st Contact Info) Description 08/20/2024 1:44 PM EDT Anesthesia Event [facility] ENDO SUITES [address] [place] [phone] Akash Anguiano MD [address] [place] [address] Liborio Peralta CRNA [address] [place] [address] Anesthesia Record Procedure Summary Procedure Name Responsible [...] drink = 0.6 oz pur e alcohol) [facility] Utilities Answer Date Recorded In [...] heating? Not hard at all 05/28/2024 [facility] [place] of Occupat ional Health - Occupational Stress [...] GED or equivalent No 05/28/2024 Preferred Language Panamanian 05/28/2024 PHQ-2 Answer Date Recorded Patient Health [...] 1:23 PM EDT Polly Lacey RN * [place] Suicide Severity Rating Scale (Screener/Recent Self-Report) Question Answer Date of Assessment Author 6. Suicidal Behavior (Lifetime) No 1:23 PM EDT Polly Cabrera RN documented as of this encounter OR Notes * Anesthesia Postprocedure Evaluation - Liborio Peralta CRNA - 08/20/2024 2:18 PM EDT Patient: Whitney Presley Procedure Summary Date: 08/20/24 Room / Location: [facility] ENDOSCOPY 3 / [facility] Anesthesia Start: [...] sounds: normal. Substance History - negative use TREATMENT SUPERVISOR (+) (25 wks, FHT 147) Other Anesthesia Plan ASA 2 general Rapid sequence intravenous induction Anesthetic plan, risks, benefits, and alternatives have been provided, discussed and informed consent has been obtained with: patient. Plan discussed with HOLLOW CORE DOOR FRAME ASSEMBLER. CODE STATUS: documented in this encounter Plan of Treatment Upcoming Encounters Date Type Department Care Team (Late st Contact Info) Description 01/20/2025 3:30 PM EST Office Visit [facility] [address] [facility] [address] Robbin Escalante MD [address] [address] documented as of this encounter Procedures Procedure [...] and Staff Patient location during procedure: OR HOLLOW CORE DOOR FRAME ASSEMBLER/CAA: Junior Zbigniew Jain, DAYNE Indications and Patient [...] documented as of this encounter Care Teams Food And Beverage Intern Relationship Specialty Start Date End Date Norma Friedman APRN [address] [place] G[address] [place] [address] PCP - General Family Medicine 05/14/24 documented as of this encounter
--- OUTSIDE RECORDS SUMMARY | 2024-08-29 10:00 | XMS_ITS | Encounter Summary ---
Author Organization [facility] Address [address] [place] [address] Care Team Providers Care Teacher Asst Name Role Phone IvyKade goldbergjoseseven JOLENE Primary Care Provider + [phone] Reason for Visit * Reason Comments Problem Encounter Details Date Type Department Care Team (Late st Contact Info) Description 08/29/2024 10:00 AM EDT Routine [facility] OBGYN [address] [place] [address] Staci Jain MD [address] [place] [address] [place]: 26w4d Social History Tobacco Use Types Packs/Day Years Used Date Smoking Tobacco: Never Smokeless Tobacco: Never Alcohol Use Standard Drinks/Week Comments Never 0 (1 standard drink = 0.6 oz pur e alcohol) [facility] Utilities Answer Date Recorded In the past 12 months has [employer], gas, oil, or water [employer] threatened to shut off services in your [...] heating? Not hard at all 05/28/2024 [facility] - Occupational Stress Questionnaire Answer Date [...] GED or equivalent No 05/28/2024 Preferred Language Martiniquais 05/28/2024 PHQ-2 Answer Date Recorded Patient Health [...] [facility] GASTR[facility]Y [address] [address] Robbin Escalante MD [address] [address] documented as of this encounter Procedures Procedure [...] 08/30/2024 6:09 AM EDT Performed at: [address] [id number] Plate Corrector: Kevin Harman MD, Phone: [phone] Patient Fasting: N us Staci Jain MD LAB BLOOD ORDERABLES Final Result [facility] (AM[facility]) [address] [place] [address], [facility] [address] [place] [address], * (ABNORMAL) Comprehensive Metabolic Panel (08/29/2024 11:05 [...] 11:0 5 AM EDT 08/29/2024 Narrative [facility] (AMBULATORY) - 08/30/2024 6:09 AM EDT Performed at: 01 - [place] [address] [address] [place], [place] [id number] Plate Corrector: Kevin Harman MD, Phone: [phone] Patient Fasting: N Staci Jain MD LAB BLOOD ORDERABLES Final Result Performing Organization Address City/[facility]/ZIP Co de Phone Number [facility]) [address] [place] [address], [place] [phone] [facility] [address] [place] [address], [place] [phone] * (ABNORMAL) POC Urinalysis Dipstick (08/29/2024 10:13 AM EDT) Glucose, UA Negative Negative mg/dL [facility] Protein, POC Trace(A) Negative mg/dL [facility] Urine 08/29/2024 10:1 3 AM EDT us Staci Jain MD POINT OF CARE TEST OR DERABLES Final Result Performing Organization Address City/[facility]/ZIP Co de Phone Number [facility]
[address] [place] [address], documented in this encounter Visit Diagnoses Diagnosis [...] documented as of this encounter Care Teams Teacher Asst Relationship Specialty Start Date End Date Norma Friedman APRN [address] [place] G3 RAFAELA APPIAH [address] PCP - General Family Medicine 05/14/24 documented as of this encounter
--- OUTSIDE RECORDS SUMMARY | 2024-09-23 10:00 | XMS_ITS | Encounter Summary ---
Author Organization [facility] Address [address] [place] [address] Care Team Providers Care Meat Inspector Name Role Phone Norma Friedman JOLENE Primary Care Provider +1- [phone] Reason for Referral * Consultation (Routine) - Closed Specialty Diagnoses / Procedures Referred By Contac t Referred To Contact Cardiology Diagnoses Supervision of high risk , antepartum Cardiac arrhythmia, unspecified cardiac arrhythmia type Liborio Weller MD [address] [facility] [address] [place] [address] Phone: tel: fax: Referral ID Status Reason Start Date Expiration Date V isits Requested Visits Authorized [id number] Closed Specialty Services Required 09/23/2024 03/25/2026 1 1 Encounter Details Date Type Department Care Team ([facility] st Contact Info) Description 09/23/2024 10:00 AM EDT Office Visit Medical Office Building Obstetrics and Gynecology [address] [facility] [address], [address] [place] [address] Liborio Weller MD [address] [facility] 140 [place] [address] Supervision of high risk , [...] more drinks on one occasion? Never 09/23/2024 [place] Depression Scale Answer Date Recorded [place] Depression Scale Total 0 09/23/2024 The thought [...] last week on 09/19. She presented to [facility] for chest pain and palpitations. She has [...] 09/25 and has otherwise never seen a climbing guide. She has never seen a gateman. She also reports during this admission she [...] None N JAGDISH Complications: Potassium (K) deficiency [place] Depression Scale Total: 0 Gynecology History No [...] has a past surgical history that includes [place] tooth extraction (N/A); section, low transverse (N/A); [...] prescription(s): ferosul, potassium chloride cr, prenat mv-min w/zo-wgjqmu-weg, and thiamine. Allergies Allergies[1] Review of Systems [...] Had tachycardia and arrhythmia during admission to [facility] on 09/19 HR to 170s-180s with [...] other day Has never been evaluated by climbing guide for salt wasting nephropathy PLAN Has nephrology [...] the patient, and documenting this visit. (Est [id number]) Brandee Pringle MD Obstetrics & Gynecology, PGY-2 [...] Info) Description 10/17/2024 8:30 AM EDT Appointment [facility] Ultrasound [address] [place] [address] 10/17/2024 9:15 AM EDT Routine Medical Office Building Obstetrics and Gynecology [address] [facility] [address], [address] [place] [address] Laury Cruz MD [address] [facility] [address] [place] [address] 10/24/2024 8:00 AM EDT Office Visit [facility] [place] [address] [facility] [address], [address] [place] [address] Nneka Block MD [address] [place] [address] 12/25/2024 1:00 PM EST Office Visit [facility] Nephrology, Bone & Mineral Metabolism [address] [facility] [address], [address] [place] [address] Scheduled Referrals Name Type Priority [...] Ketones, Urine 40(A) Negative mg/dL POCT Specific [place], Urine 1.015 POCT Blood, Urine Negative Negative POCT pH, Urine >=9.0(A) 5.0 to 8.0 POCT Protein, Urine 100(A) Negative mg/dL POCT Urobilinogen, Urine 0.2 0.2, 1 E.U./dL POCT Nitrite, Urine Negative Negative POCT Leukocyte Esterase, Urine Negative Negative Test Strip Lot Number [id number] Test Strip Lot Expiration 07/2025 Urine Urine [...] documented as of this encounter Care Teams Meat Inspector Relationship Specialty Start Date End Date Norma Friedman APRN [address] [place] [address] PCP - General 09/23/24 documented as of this encounter
--- OUTSIDE RECORDS SUMMARY | 2024-09-25 14:20 | XMS_ITS | Encounter Summary ---
Author Organization Healthcare Address [address] [place] [address] Care Team Providers Care Patient Care Secretary Name Role Phone Norma Friedman JOLENE Primary Care Provider +1- [phone] Reason for Referral * Consultation (Routine) - Authorized Specialty Diagnoses / Procedures Referred By Tarik pedersen Referred To Contact Diagnoses Hypokalemia Bill Patrick MD [address] [place] [phone] Phone: tel: fax: Referral ID Status Reason Start Date Expiration Date V isits Requested Visits Authorized [id number] Authorized 09/25/2024 03/27/2026 1 1 * Imaging (Routine) - Authorized Specialty Diagnoses / Procedures Referred By Tarik pedersen Referred To Contact Radiology Diagnoses Hypokalemia Procedures US Renal Complete Bill Patrick MD [address] [place] [phone] Phone: tel: fax: Referral ID Status Reason Start Date Expiration Date V isits Requested Visits Authorized [id number] Authorized 09/25/2024 03/27/2026 1 1 Reason for Visit * Reason Comments Consult * Consultation (Routine) - Closed Specialty Diagnoses / Procedures Referred By Tarik pedersen Referred To Contact Nephrology Diagnoses Hypokalemia Liborio Weller MD [address] [address] Phone: tel: fax: [facility] Nephrology, Bone & Mineral Metabolism [address] , [address] [place] [address] Phone: tel: fax: Referral ID Status Reason Start Date Expiration Date V isits Requested Visits Authorized [id number] Closed Specialty Services Required 09/14/2024 03/16/2026 1 1 Encounter Details Date Type Department Care Team (Late st Contact Info) Description 09/25/2024 2:20 PM EDT Office Visit [facility] Nephrology, Bone & Mineral Metabolism [address] , [address] [place] [address] Bill Patrick MD [address] [place] [address] Hypokalemia (Primary Dx) Social History [...] more drinks on one occasion? Never 09/23/2024 [place] Depression Scale Answer Date Recorded [place] Depression Scale Total 0 09/23/2024 The thought [...] 37 weeks andshe did not see a Agent Licensing Clerk at that time. Also notes she has [...] Date SECTION, LOW TRANSVERSE N/A section from [facility] DILATION AND CURETTAGE OF UTERUS N/A Dilation and curettage from [facility] WISDOM TOOTH EXTRACTION N/A Oral Surgery Tooth Extraction [place] Tooth from [facility] [3] Family History Problem Relation Name Age [...] mouth 3 times a day.) Prenat MV-Min [id number] ( COMPLETE PO) thiamine (Vitamin B-1) 100 [...] Description 10/17/2024 8:[address] [facility] Ultrasound [address] [place] [address] 10/17/2024 9:15 AM EDT Routine Medical Office Building Obstetrics and Gynecology [address] [facility], [address] [place] [address] Laury Cruz MD [address] [place] [address] 10/24/2024 8:00 AM EDT Office Visit [facility] [place] [address], [address] [place] [address] Nneka Block MD [address] [place] [address] 12/25/2024 1:00 PM EST Office Visit [facility] Nephrology, Bone & Mineral Metabolism [address], [address] [place] [address] Scheduled Orders Name Type Priority [...] Chloride, Urine 25 mmol/L 2:03 PM EDT [facility] Urine Urine specimen obtained by clean catch procedure / Unknown Non-blood Collection / Unknown 09/26/2024 10:07 AM EDT 09/26/2024 10:07 AM EDT us Bill Patrick MD LAB URINE ORDERABLES Final Resul t [facility] [address] [place] [address] * Protein, Random, Urine with Creatinine (09/26/2024 10:03 AM EDT) Protein, Urine 26 mg/dL 09/26/2024 12:08 PM EDT [facility] Creatinine, Urine 199 mg/dL 09/26/2024 12:08 PM EDT [facility] Protein/Creati nine Ratio 0.1 mg/mg Creat 09/26/2024 12:08 PM EDT [facility] Urine Urine specimen obtained by clean catch procedure / Unknown Non-blood Collection / Unknown 09/26/2024 10:03 AM EDT 09/26/2024 10:04 AM EDT us Bill Patrick MD LAB URINE ORDERABLES Final Resul t Performing Organization Address City/[facility] Co de Phone Number [facility] [address] [place] [address] * Potassium, urine, random (09/26/2024 10:02 AM EDT) Potassium, Urine 43 mmol/L 09/26/2024 11:55 AM EDT [facility] Urine Urine specimen obtained by clean catch procedure / Unknown Non-blood Collection / Unknown 09/26/2024 10:02 AM EDT 09/26/2024 10:02 AM EDT us Bill Patrick MD LAB URINE ORDERABLES Final Resul t Performing Organization Address [facility] Co de Phone Number [facility] [address] [place] [address] * Osmolality, urine (09/26/2024 10:02 AM EDT) Osmolality, Urine 404 50 - 1,200 mOsm/kg 09/26/2024 1:48 PM EDT [facility] Urine Urine specimen obtained by clean catch procedure / Unknown Non-blood Collection / Unknown 09/26/2024 10:02 AM EDT 09/26/2024 10:02 AM EDT us Bill Patrick MD LAB URINE ORDERABLES Final Resul t Performing Organization Address City/[facility] Co de Phone Number [facility] [address] [place] [address] * Sodium, urine, random (09/26/2024 10:02 AM EDT) Sodium, Urine 110 mmol/L 09/26/2024 11:55 AM EDT [facility] Urine Urine specimen obtained by clean catch procedure / Unknown Non-blood Collection / Unknown 09/26/2024 10:02 AM EDT 09/26/2024 10:02 AM EDT Bill Patrick MD LAB URINE ORDERABLES Final Resul t [facility] [address] [place] [address] * Antinuclear Antibody (JEFFERY), HEp-2, IgG (09/26/2024 9:32 AM EDT) JEFFERY INTERPRETIVE COMMENT See Note 09/28/2024 5:13 PM EDT [facility] ([facility]) Anti Nuc Ab Screen <1:80 <1:80 09/28/2024 5:13 PM EDT [facility] ([facility]) Blood Venous blood specimen / Unknown Venipuncture / Unknown 09/26/2024 9:32 AM EDT 09/26/2024 9:32 AM EDT Narrative [facility] ([facility]) - 09/28/2024 5:13 PM EDT INTERPRETIVE INFORMATION: [...] rings, and cytoplasmic speckled patterns. Performed By: [id number] [address] [place] [address] Gravel Weigher: Brandon Bell MD, PhD CLIA Number: [id number] Bill Patrick MD LAB BLOOD ORDERABLES Final Resul t [facility] ([facility]) [address] [place] [address] * Rheumatoid factor, plasma (09/26/2024 9:32 AM EDT) Pathologist [facility] Rheumatoid Factor, Plasma <10 <14 IU/mL 09/26/2024 1:49 PM EDT [facility] Blood Venous blood specimen / Unknown Venipuncture / Unknown 09/26/2024 9:32 AM EDT 09/26/2024 9:32 AM EDT Bill Patrick MD LAB BLOOD ORDERABLES Final Resul t [facility] [address] [place] [address] * SSB (LA) (YARA) ANTIBODY, IGG (09/26/2024 9:32 AM EDT) SSB (LA) (YARA) Antibody, IgG 0 0 - 40 AU/mL 09/28/2024 5:47 PM EDT [facility]) Serum Venous blood specimen / Unknown 09/26/2024 9:32 AM EDT 09/26/2024 9:32 AM EDT Narrative [facility]) - 09/28/2024 5:47 PM EDT INTERPRETIVE INFORMATION: [...] (PSS) also have this antibody. Performed By: [id number] [address] [place] [id number] Gravel Weigher: Brandon Bell MD, PhD CLIA Number: [id number] us Bill Patrick MD LAB BLOOD ORDERABLES Final Resul t [facility] [employer] ([facility]) [address] [place] [id number] * SSA 52 and 60 (Ro) (YARA) Antibodies, IgG (09/26/2024 9:32 AM EDT) SSA-52 (RO52) (YARA) Antibody, IgG 2 0 - 40 AU/mL 09/28/2024 5:47 PM EDT [facility] ([facility]) SSA-60 (RO60) (YARA) Antibody, IgG 0 0 - 40 AU/mL 09/28/2024 5:47 PM EDT [facility] ([facility]) Serum 09/26/2024 9:32 AM EDT 09/26/2024 9:32 AM EDT Narrative [facility] ([facility]) - 09/28/2024 5:47 PM EDT INTERPRETIVE INFORMATION: [...] AU/mL or Greater .......... Positive Performed By: [id number] [address] [place] [address] Gravel Weigher: Brandon Bell MD, PhD CLIA Number: [id number] us Bill Patrick MD LAB REF LAB BLOOD AND FLUID ORD Final Result [facility] ([facility]) [address] [place] [address] * (ABNORMAL) Renal function panel (09/26/2024 9:32 AM EDT) Glucose, Plasma 87 74 - 99 mg/dL 09/26/2024 12:24 PM EDT [facility] BUN, Plasma 5(L) 7 - 21 mg/dL 09/26/2024 12:24 PM EDT [facility] Creatinine, Plasma 0.72 0.60 - 1.10 mg/dL 09/26/2024 12:24 PM EDT [facility] BUN/Creatinine Ratio 7 09/26/2024 12:24 PM EDT [facility] Sodium, Plasma 135(L) 136 - 145 mmol/L 09/26/2024 12:24 PM EDT [facility] Potassium, Plasma 3.1(L) 3.6 - 4.9 mmol/L 09/26/2024 12:24 PM EDT [facility] Chloride, Plasma 95(L) 97 - 107 mmol/L 09/26/2024 12:24 PM EDT [facility] CO2, Plasma 26 22 - 29 mmol/L 09/26/2024 12:24 PM EDT [facility] Anion Gap 14 6 - 16 mmol/L 09/26/2024 12:24 PM EDT [facility] Total Calcium, Plasma 9.4 8.9 - 10.2 mg/dL 09/26/2024 12:24 PM EDT [facility] Phosphorus, Plasma 3.5 2.5 - 4.5 mg/dL 09/26/2024 12:24 PM EDT [facility] Albumin, Plasma 3.6 3.5 - 5.2 g/dL 09/26/2024 12:24 PM EDT [facility] eGFRcr 113.4 mL/min/1.7 3m*2 09/26/2024 12:24 PM EDT [facility] Comment:Reported eGFRcr in m L/min/1.73m2 is based the CKD-EPI 2020 equation that does not use a race coefficient. Blood Venous blood specimen / Unknown Venipuncture / Unknown 09/26/2024 9:32 AM EDT 09/26/2024 9:32 AM EDT us Bill Patrick MD LAB BLOOD ORDERABLES Final Resul t Performing Organization Address City/[facility] Co de Phone Number [facility] [address] [place] [address] * (ABNORMAL) Osmolality (09/26/2024 9:32 AM EDT) Osmolality, Serum 273(L) 275 - 295 mOsm/Kg 09/26/2024 2:10 PM EDT [facility] Blood Venous blood specimen / Unknown Venipuncture / Unknown 09/26/2024 9:32 AM EDT 09/26/2024 9:32 AM EDT us Bill Patrick MD LAB BLOOD ORDERABLES Final Resul t Performing Organization Address City/[facility] Co de Phone Number [facility] [address] [place] [address] documented in this encounter Visit Diagnoses Diagnosis Hypokalemia- Primary Hypopotassemia documented in this encounter Additional Health Concerns Assessment Noted Time A fall risk assessment has been complete d for the patient 09/25/2024 3:05 PM EDT A Body Mass Index follow-up plan has been documented for the patient 10/05/2024 8:54 PM EDT documented as of this encounter Care Teams Patient Care Secretary Relationship Specialty Start Date End Date Norma Friedman APRN [address] [place] [address] PCP - General 09/23/24 documented as of this encounter
--- OUTSIDE RECORDS SUMMARY | 2024-09-26 08:00 | XMS_ITS | Encounter Summary ---
Author Organization [facility] Address [address] [place] [address] Care Team Providers Care Sulky Driver Name Role Phone Norma Friedman ROLLER TURNER Primary Care Provider +1- [phone] Lizz Trinh RN Unavailable Unavailable Reason for Referral * Consultation (Routine) - Authorized Specialty Diagnoses / Procedures Referred By Tarik pedersen Referred To Contact Diagnoses Palpitations Syncope and collapse Nneka Vasquez MD [address] [place] [phone] Phone: tel: fax: Referral ID Status Reason Start Date Expiration Date V isits Requested Visits Authorized [id number] Authorized 09/26/2024 03/28/2026 1 1 * Cardiac Stress Testing (Routine) - Closed Specialty Diagnoses / Procedures Referred By Contac t Referred To Contact Cardiology Diagnoses Palpitations Syncope and collapse Procedures Adult Patch Monitor - 7 Day Nneka Vasquez MD [address] [place] [phone] Phone: tel: fax: Referral ID Status Reason Start Date Expiration Date Visits Re quested Visits Authorized [id number] Closed 09/26/2024 03/28/2026 1 1 Reason for Visit * Consultation (Routine) - Closed Specialty Diagnoses / Procedures Referred By Contac t Referred To Contact Cardiology Diagnoses Supervision of high risk , antepartum Cardiac arrhythmia, unspecified cardiac arrhythmia type [place] Preciado MD [address] [phone] Phone: tel: fax: Referral ID Status Reason Start Date Expiration Date V isits Requested Visits Authorized [id number] Closed Specialty Services Required 09/23/2024 03/25/2026 1 1 Encounter Details Date Type Department Care Team (Late st Contact Info) Description 09/26/2024 8:00 AM EDT Office Visit [facility] [place] [address] [facility], [address] [place] [address] Nneka Vasquez MD [address] [place] [address] Syncope and collapse (Primary Dx); [...] more drinks on one occasion? Never 09/23/2024 [place] Depression Scale Answer Date Recorded [place] Depression Scale Total 0 09/23/2024 The thought [...] Vasquez MD - 09/26/2024 8:00 AM EDT [place] [facility] ([facility]) Problem List #Hypomagnesium and Hypokalemia -- PICC line for infusions # HPI Whitney Presley is a 34 y.o. with a history of GERD, ovarian cysts, with history of low potassium coming in for evaluation as a consult from Dr. Welelr and she is currently . Whitney was [...] home with no plans. 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 compliance monitor today to evaluate for abnormal rhythms [...] TOOTH EXTRACTION N/A Oral Surgery Tooth Extraction [place] Tooth from [employer] [3] Social History Socioeconomic [...] Resource Strain: Low Risk (05/28/2024) Received from [facility] Overall Financial Resource Strain (CARDIA) Difficulty of Paying Living Expenses: Not hard at all Food Insecurity: No Food Insecurity (05/28/2024) Received from [facility] Hunger Vital Sign Within the past 12 months, you worried that your food would run out before you got the money to buymore.: Never true Within the past 12 months, the food you bought just didn't last and you didn't have money to get more.: Never true Transportation Needs: No Transportation Needs (05/28/2024) Received from [facility] PRAPARE - Transportation In the past 12 months, has lack of transportation kept you from medical appointments or from getting medications?: No In the past 12 months, has lack of transportation kept you from meetings, work, or from getting things needed for daily living?: No Physical Activity: Sufficiently Active (05/28/2024) Received from [facility] Exercise Vital Sign On average, how many days per week do you engage in moderate to strenuous exercise (like a brisk walk)?: 5 days On average, how many minutes do you engage in exercise at this level?: 40 min Stress: Stress Concern Present (05/27/2024) Received from [facility] [place] of Occupational Health - Occupational Stress Questionnaire Feeling of Stress : To some extent Social Connections: Not At Risk (05/28/2024) Received from [facility] Family and Community Support If for any reason you need help with day-to-day activities such as bathing, preparing meals, shopping, managing finances, etc., do you get the help you need?: I don't need any help How often do you feel lonely or isolated from those around you?: Sometimes Intimate Partner Violence: Not At Risk (08/19/2024) Received from [facility] Abuse Screen Feels Unsafe at Home or Work/School: no Feels Threatened by Someone: no Does Anyone Try to Keep You From Having Contact with Others or Doing Things Outside Your Home?: no Physical Signs of Abuse Present: no Housing Stability: Not At Risk (08/20/2024) Received from [facility] Housing Stability Current Living Arrangements: home Potentially [...] 10/17/2024 8:30 AM EDT Appointment [facility] Ultrasound [address] [place] [address] 10/17/2024 9:15 AM EDT Routine Medical Office Building Obstetrics and Gynecology [address] [facility], [address] [place] [address] Laury Cruz MD [address] [facility] [address] [place] [address] 10/24/2024 8:00 AM EDT Office Visit [facility] [place] [address] [facility], [address] [place] [address] Nneka Vasquez MD [address] [place] [address] 12/25/2024 1:00 PM EST Office Visit [facility] Nephrology, Bone & Mineral Metabolism [address] [facility], [address] [place] [address] Scheduled Referrals Name Type Priority [...] on Day 3 / 08:47:57 pm SVE(s): [place] was 3.46 %, [id number] total SVE(s) SV Arrhythmia(s): 21 events, longest event 7 beats on Day 03:05:26 am, fastest event 111 bpm on Day 02:02:39 am PVC(s): [place] was 0.03 %, 189 total PVC(s), 1 [...] ECG Atrial Rate 84 BPM MUSE ECG [place] Interval 148 ms MUSE ECG QRSD Interval 74 ms MUSE ECG QT Interval 374 ms MUSE ECG QTC Interval 441 ms MUSE ECG P [place] 60 degrees MUSE ECG R [place] 36 degrees MUSE ECG T Wave [place] 55 degrees MUSE ECG Diagnosis Normal sinus rhythm with sinus arrhythmia MUSE ECG Diagnosis Normal ECG MUSE ECG Diagnosis MUSE ECG Diagnosis Confirmed by Abad South ([id number]) on 09/26/2024 12:13:59 PM MUSE ECG 09/26/2024 [...] documented as of this encounter Care Teams Sulky Driver Relationship Specialty Start Date End Date Norma Friedman, ROLLER TURNER [address] [place] [address] PCP - General 09/23/24 Lizz Trinh, RN [facility] Registered Nurse Cardiology 09/26/24 documented as of this encounter
--- OUTSIDE RECORDS SUMMARY | 2024-09-26 09:06 | XMS_ITS | Encounter Summary ---
Author Organization [facility] Address [address] [place] [address] Care Team Providers Care Raveler Name Role Phone Elder Kadedev Coy REVENUE COLLECTOR Primary Care Provider +1- [phone] Lizz Trinh RN Unavailable Unavailable Reason for Referral * Cardiac Stress Testing (Routine) - Closed Specialty Diagnoses / Procedures Referred By Tarik pedersen Referred To Contact Cardiology Diagnoses Palpitations Syncope and collapse Procedures Adult Patch Monitor - 7 Day Nneka Vasquez MD [address] [place] [address] Phone: tel: fax: Referral ID Status Reason Start Date Expiration Date Visits Re quested Visits Authorized [id number] Closed 09/26/2024 03/28/2026 1 1 Reason for Visit * Cardiac Stress Testing (Routine) - Closed Specialty Diagnoses / Procedures Referred By Tarik pedersen Referred To Contact Cardiology Diagnoses Palpitations Syncope and collapse Procedures Adult Patch Monitor - 7 Day Nneka Vasquez MD [address] [place] [address] Phone: tel: fax: Referral ID Status Reason Start Date Expiration Date Visits Re quested Visits Authorized [id number] Closed 09/26/2024 03/28/2026 1 1 Encounter Details Date Type Department Care Team (Latest Contact Info) Description 09/26/2024 9:06 AM EDT - 09/26/2024 11:59 PM EDT Hospital Encounter Medical Office Building Cardiac Diagnostic Testing Medical Office Building Echo Lab [address], [address] [place] [address] Palpitations; Syncope and collapse Discharge [...] more drinks on one occasion? Never 09/23/2024 [place] Depression Scale Answer Date Recorded [place] Depression Scale Total 0 09/23/2024 The thought [...] 2 times a day. 09/02/2024 Prenat MV-Min w/Kk-Nllaqh-AIT ( COMPLETE PO) 12/25/2018 thiamine (Vitamin B-1) 100 MG tablet Take 1 tablet by mouth 1 time each day. 09/01/2024 documented as of this encounter Plan of Treatment Upcoming Encounters Date Type Department Care Team ([facility] st Contact Info) Description 10/17/2024 8:30 AM EDT Appointment [facility] Ultrasound [address] [place] [address] 10/17/2024 9:15 AM EDT Routine Medical Office Building Obstetrics and Gynecology [address] [facility] [address] [facility], [address] [place] [address] Laury Cruz MD [address] [facility] [address] [place] [address] 10/24/2024 8:00 AM EDT Office Visit [facility] [place] [address], [address] [place] [address] Nneka Vasquez MD [address] [place] [address] 12/25/2024 1:00 PM EST Office Visit [facility] [place] Nephrology, Bone & Mineral Metabolism [address] [facility], [address] [place] [address] documented as of this encounter [...] on Day 3 / :47:57 pm SVE(s): [place] was 3.46 %, [id number] total SVE(s) SV Arrhythmia(s): 21 events, longest event 7 beats on Day :05:26 am, fastest event 111 bpm on Day :02:39 am PVC(s): [place] was 0.03 %, 189 total PVC(s), 1 [...] documented as of this encounter Care Teams Raveler Relationship Specialty Start Date End Date Norma Friedman APRN [address] [place] [address] PCP - General 09/23/24 Lizz Trinh, RN [facility] Registered Nurse Cardiology 09/26/24 documented as of this encounter
--- OUTSIDE RECORDS SUMMARY | 2024-10-13 18:12 | XMS_ITS | Encounter Summary ---
[facility] [address] [place] [id number] Care Team Providers Care Events Associate Name Role Phone Ivyashlyn Valentinoseven JOLENE Primary Care Provider + [phone] Encounter Details Date Type Department Care Team (Late st Contact Info) Description 06/26/2024 Results Follow-Up [facility] OBGYN [address] [address] Koby Roberts MD [address] [place] [address] Social History Tobacco Use Types Packs/Day Years Used Date Smoking Tobacco: Never Smokeless Tobacco: Never Alcohol Use Standard Drinks/Week Comments Never 0 (1 standard drink = 0.6 oz pur e alcohol) [facility] Utilities Answer Date Recorded In the past 12 months has [employer], gas, oil, or water [employer] threatened to shut off services in your [...] 05/28/2024 [facility] [place] of Occupat ional Health - Occupational Stress [...] Description 01/20/2025 3:30 PM EST Office Visit [facility] [address] [facility] [address] [address] Robbin Escalante MD [address] [address] documented as of this encounter Visit Diagnoses Not on filedocumented in this encounter Additional Health Concerns Assessment Noted Time PHQ-2 Depression Total Score: 2 05/28/19 25 4:39 PM EDT documented as of this encounter Care Teams Events Associate Relationship Specialty Start Date End Date Norma Friedman APRN [address] [place] [address] PCP - General Family Medicine 05/14/24 documented as of this encounter
--- OUTSIDE RECORDS SUMMARY | 2024-10-13 18:12 | XMS_ITS | Encounter Summary ---
[facility] [address] [place] [id number] Care Team Providers Care Earth Science Technical Officer Name Role Phone IvyKade goldbergjoseseven JOLENE Primary Care Provider + [phone] Encounter Details Date Type Department Care Team (Late st Contact Info) Description 09/03/2024 Results Follow-Up [facility] OBGYN [address] [place] [address] Staci Jain MD [address] [facility] [address] [place] [address] Social History Tobacco Use Types Packs/Day Years Used Date Smoking Tobacco: Never Smokeless Tobacco: Never Alcohol Use Standard Drinks/Week Comments Never 0 (1 standard drink = 0.6 oz pur e alcohol) [facility] Utilities Answer Date Recorded In the past 12 months has [employer], gas, oil, or water [employer] threatened to shut off services in your [...] and heating? Not hard at all 05/28/2024 [facility] of Occupat ional [...] [facility] [address] [address] Robbin Escalante MD [address] [address] documented as of this encounter Visit Diagnoses Not on filedocumented in this encounter Additional Health Concerns Assessment Noted Time PHQ-2 Depression Total Score: 2 05/28/19 4:39 PM EDT documented as of this encounter Care Teams Earth Science Technical Officer Relationship Specialty Start Date End Date Norma Friedman APRN [address] [place] [place] [address] PCP - General Family Medicine 05/14/24 documented as of this encounter
--- OUTSIDE RECORDS SUMMARY | 2024-10-13 18:12 | XMS_ITS | Encounter Summary ---
[facility] Address [address] [place] [id number] Care Team Providers Care Hospital Orderly Name Role Phone IvyKade goldbergjoseseven JOLENE Primary Care Provider + [phone] Encounter Details Date Type Department Care Team (Late st Contact Info) Description 09/26/2024 Documentation [facility] LABOR DELIVERY [address] [place] [address] Christy Zabala, RN Social History Tobacco Use [...] Not hard at all 05/28/2024 [facility] of Occupat ional Health - Occupational Stress [...] Office Visit [facility] GASTROENTEROLOGY [address] [phone] Robbin Escalante MD [address] [address] documented as of this encounter Visit Diagnoses Not on filedocumented in this encounter Additional Health Concerns Assessment Noted Time PHQ-2 Depression Total Score: 2 05/28/19 25 4:39 PM EDT documented as of this encounter Care Teams Hospital Orderly Relationship Specialty Start Date End Date Norma Friedman APRN [address] [place] G3 RAFAELA APPIAH [address] PCP - General Family Medicine 05/14/24 documented as of this encounter
--- OUTSIDE RECORDS SUMMARY | 2024-10-13 18:12 | XMS_ITS | Clinical Summary ---
Author Organization [facility] Address [address] [place] [address] Care Team Providers Care Wildlife Management Professor Name Role Phone Norma Friedman APRN Primary Care Provider + [phone] Allergies Active Allergy Reactions Criticality Noted Date [...] Type Department Care Team Description 5 Telephone [facility] MATERNAL MEDICINE 1700 [facility] [place] [address] [place] [address] Lyudmila Germain, storage solutions architect Only 5 Documentation [facility] LABOR DELIVERY [address] [place] [address] Christy Zabala RN 5 Results Follow-Up [facility] OBGYN [address] [place] [address] Rob Wharton MD 5 Telephone [facility] OBGYN [address] [facility] [address] [place] [address] Rob Wharton MD 5 10:00 AM EDT Routine [facility] [place] [address] Rob Wharton MD GA: 26w4d 5 Travel 5 Telephone [facility] OBGYN [address] [facility] [address] [place] [address] Rob Wharton MD 5 Telephone [facility] [place] [address] Rob Wharton MD 5 1:44 PM EDT Anesthesia Event [facility] ENDO SUITES [address] [place] [address] Akash Anguiano MD Lanham, John, CRNA 5 1:33 PM EDT - 5 2:05 PM EDT Surgery [facility] ENDO SUITES [address] [place] [address] Blu Alvarado MD ESOPHAGOGASTRODUODENOSCOPY [53121 (CPT )] 5 1:59 PM EDT - 5 4:28 PM EDT Hospital Encounter [facility] ANTEPARTUM [address] [place] [address] Rob Wharton MD Brunner, Mark I, MD Dysphagia, unspecified type (Primary Dx) Discharge Disposition: Home or Self Care 5 10:15 AM EDT Routine [facility] OBGYN [address] [place] [address] Jacey Mathews, SAMPLE DRILLER GA: 25w 5 Telephone [facility] OBGYN [address] [place] [address] Jacey Mathews, SAMPLE DRILLER 5 Travel 5 Patient Outreach [facility] LABOR DELIVERY [address] [place] [address] Christy Zabala RN 5 9:10 AM EDT Routine [facility] OBGYN 1700 [facility] [address] [place] [address] Rob Wharton MD GA: 21w 5 8:00 AM EDT Office Visit [facility] MATERNAL MEDICINE 1700 [facility] [address] [place] [address] Sebastian Larsen MD History of prior with small for gestational age (Primary Dx) 5 7:44 AM EDT - 5 11:59 PM EDT Hospital Encounter [facility] US PER DIAG CTR [address] [place] [address] Kelly Delgado, SAMPLE DRILLER care, antepartum, unspecified ; High risk due [...] = 0.6 oz pur e alcohol) [facility] Utilities Answer Date Recorded In the [...] heating? Not hard at all 05/28/2024 [facility] of Occupat ional Health - Occupational Stress [...] Visit [facility] GASTROENTEROLOGY 1720 [facility] [address] [place] [address] Robbin Escalante MD 1720 [facility] [address] [place] [address] Health Maintenance Due Date Last [...] Routine 08/19/2024 4:17 PM EDT [facility] Routine 08/19/2024 3:25 PM EDT [...] 10:02 AM EDT Multigravida in second trimester [facility] Routine 07/22/2024 9:10 [...] - 08/30/2024 6:09 AM EDT Performed at: [address] [place] [id number] Solvent Plant Treater: Kevin Harman MD, Phone: [phone] Patient Fasting: N Rob Wharton MD LAB BLOOD ORDERABLES Final Result [facility] (AMBULATORY) [address] [place] [address], [facility] [address] [place] [address], [place] [phone] * (ABNORMAL) Comprehensive Metabolic Panel (08/29/2024 11:05 AM EDT) Only the most recent of2 resultswithin the time period is included. [facility] Glucose 72 65 - 99 mg/dL [...] - 08/30/2024 6:09 AM EDT Performed at: [address] [place] [id number] Solvent Plant Treater: Kevin Harman MD, Phone: [phone] Patient Fasting: N us Rob Wharton MD LAB BLOOD ORDERABLES Final Result [facility] (AMBULATORY) [address] [place] [address], [facility] [address] [place] [address], [place] [phone] * (ABNORMAL) POC Urinalysis Dipstick (08/29/2024 10:13 AM EDT) Only the most recent of2 resultswithin the time period is included. Glucose, UA Negative Negative mg/dL [facility] Protein, POC Trace(A) Negative mg/dL [facility] Urine 08/29/2024 10:1 3 AM EDT Rob Wharton MD POINT OF CARE TEST OR DERABLES Final Result [facility]
[address] [place] [address], [place] [phone] * BH AN ETT AIRWAY (08/20/2024 2:02 [...] symmetric chest rise and fall Liborio Peralta PIE MAKER MACHINE ANESTHESIA ORDERABLES Final Res ult * Tissue Pathology Exam (08/20/2024 1:55 PM EDT) Case Report Surgical Pathology Report Case: [id number] Authorizing Provider: Blu Alvarado MD Collected: 08/20/2024 [...] ORDERABLES Final Result [facility]
[address] [place] [address], * Upper GI Endoscopy (08/20/2024 1:09 PM [...] ORDERABLES Final Resu lt Performing Organization Address City/[facility] Co de Phone Number [facility]OR[facility]ORY
[address] [place] [address], * (ABNORMAL) Potassium (08/19/2024 8:53 PM EDT) Potassium 2.7(L) 3.5 - 5.2 mmol/L 08/19/2024 9:20 PM EDT [facility] Blood Venipuncture / Unknown 08/19/2024 8:53 PM EDT 08/19/2024 9:04 PM EDT Kt Fan DO LAB BLOOD ORDERABLES Final Result Performing Organization Address [facility] Co de Phone Number [facility]
[address] [place] [address], [place] [phone] * ABO RH Specimen Verification (08/19/2024 4:34 PM EDT) ABO Type O 08/19/2024 7:39 PM EDT [facility] BB LABORATORY RH type Positive 08/19/2024 7:39 PM EDT [facility] Blood Venipuncture / Unknown 08/19/2024 4:34 PM EDT 08/19/2024 4:53 PM EDT Rob Wharton MD BLOOD BANK TEST ORDER FRANCO Final Result [facility] BB LABORATORY
[address] [place] [address], * [facility] (08/19/2024 3:25 PM EDT) Only the most recent of2 resultswithin the time period is included. Anatomical Region Laterality Modality Ultrasound 08/19/2024 3:09 PM EDT Narrative 08/19/2024 4:54 PM EDT PAT NAME: CAROLE GIRARD MED REC#: [id number] DA: [id number] PAT GEND: F PAT TYPE: E EXAM TRAVIS: [id number] REF PHYS ROB WHARTON Comparison Studies The [...] EFW (oz) 9 oz EFW by: Hadlock ([id number]) Extended Cav. septi pel. tr 4.7 mm Production Machine Tender 3.8 mm CM 7.5 mm 84% Nicolaides [...] Heart / Thorax 3-vessel view: Appears normal 6-jsqubh-yjkumfe view: Appears normal Stomach: Appears normal Kidneys: [...] in 4wks for growth. Coding ======= Description: 54681-42 Follow Up Hematology Technician: RT Annetta Hartmann , [facility] Physician: Jo Chappell MD Electronically signed by: Jo Chappell MD at: 16:54 Procedure Note Jo Chappell MD - 08/19/2024 PAT NAME: CAROLE GIRARD MED REC#: [id number] DA: 1990 PAT GEND: F PAT TYPE: E EXAM TRAVIS: [id number] REF PHYS ROB WHARTON Comparison Studies The findings of this study are compared to the prior ultrasound studydated 07/22/24 Patient Status Inpatient Indication ======== History of c/s x1. History of . Vaginal bleeding. Maternal Assessment Tjnrii859 cm Height (ft)5 ft Height (in)4 in Cbawkg61 kg Weight (lb)158 lb BMI27.31 kg/m Method [...] GA25 w + 1 d Assigned DUSTY:12/01/2024 [id number] d Biometry Standard BPD57.6 mm 23w 4d 5% Hadlock OFD81.6 mm 26w 4d 88% Jamal HC225.7 mm 24w 4d 13% Hadlock Cerebellum tr28.9 mm 25w 2d 62% Hill AC194.9 mm 24w 1d 15% Hadlock Femur44.9 mm 24w 6d 27% Hadlock Kfghcqm56.3 mm 25w 3d 50% Jamal HC / AC1.16 OJR089 g 24w 2d 16% Hadlock EFW (lb)1 lb EFW (oz)9 oz EFW by:Hadlock ([id number]) Extended Cav. septi pel. tr4.7 mm Vp3.8 mm CM7.5 mm 84% Nicolaides Head / Face / Neck Cephalic index0.71 <1% Nicolaides Extremities / Bony Struc FL / BPD0.78 FL / HC0.20 FL / AC0.23 Other Structures VGF698 bpm General Evaluation Cardiac activity present. FHR [...] normal Heart / Thorax 3-vessel view:Appears normal 3-lxynio-htsgpyi view:Appears normal Stomach:Appears normal Kidneys:Appears normal Bladder:Appears normal Gender:female Wants to know gender:yes Maternal Structures Uterus / Cervix Cervix:Visualized Approach:Transabdominal Cervical ypyavj51.9 mm Doppler Arterial Umbilical A PI1.01 32% [...] office in 4wks for growth. Coding ======= Description:99725-53 Follow Up Hematology Technician: RT Annetta Hartmann , [facility] Physician: Jo Chappell MD Electronically signed by: Jo Chappell MD at: 16:54 us Kt Fan DO [facility] US ORDERABLES Final [...] Final Resu lt [facility]
[address] [place] [address], * (ABNORMAL) Urinalysis With Microscopic If Indicated (No Culture) - Urine, Clean Catch (08/19/2024 3:02 PM EDT) Color, UA Yellow Yellow, Straw 08/19/2024 3:33 PM EDT [facility] Appearance, UA Clear Clear 08/19/2024 3:33 PM EDT [facility] pH, UA >=9.0(H) 5.0 - 8.0 08/19/2024 3:33 PM EDT [facility] Specific [place], UA 1.018 1.005 - 1.030 08/19/2024 3:33 [...] Resu lt [facility]
[address] [place] [address], * (ABNORMAL) CBC Auto Differential (08/19/2024 3:02 [...] ORDERABLES Final Result [facility]
[address] [place] [address], * Protein / Creatinine Ratio, Urine - Urine, Clean Catch (08/19/2024 3:02 PM EDT) Protein/Creati nine Ratio, Urine 126.1 0.0 - 200.0 mg/G Crea 08/20/2024 12:47 AM EDT [facility] Creatinine, Urine 148.3 mg/dL 08/20/2024 12:47 AM EDT [facility] Total Protein, Urine 18.7 mg/dL 08/20/2024 12:47 AM EDT [facility] Urine Urine specimen obtained by clean catch procedure / Unknown Collection / Unknown 08/19/2024 3:02 PM EDT 08/19/2024 4:26 PM EDT Kt Fan DO URINE ORDERABLES Final Resu lt [facility]
[address] [place] [address], * Type & Screen (08/19/2024 3:02 PM EDT) ABO Type O 08/19/2024 3:51 PM EDT [facility] BB LABORATORY RH type Positive 08/19/2024 3:51 PM EDT [facility] Antibody Screen Negative 08/19/2024 3:51 PM EDT [facility] T&S Expiration Date 08/22/2024 11:59:59 PM 08/19/2024 3:51 PM EDT [facility] Blood Line / Unknown 08/19/2024 3: 02 PM EDT 08/19/2024 3:15 PM EDT Kt Fan DO BLOOD BANK TEST ORDERABLES Edited Result - Final Performing Organization Address City/[facility]/ZIP Co de Phone Number [facility]
[address] [place] [address], * (ABNORMAL) Magnesium (08/19/2024 3:02 PM EDT) Magnesium 1.5(L) 1.6 - 2.6 mg/dL 08/19/2024 5:12 PM EDT [facility] Blood Line / Unknown 08/19/2024 3: 02 PM EDT 08/19/2024 3:10 PM EDT us Kt Fna DO LAB BLOOD ORDERABLES Final Result [facility]
[address] [place] [address], * Lipase (08/19/2024 3:02 PM EDT) Lipase 13 13 - 60 U/L 08/19/2024 3:36 PM EDT [facility] Blood Line / Unknown 08/19/2024 3: 02 PM EDT 08/19/2024 3:10 PM EDT Kt Fan DO LAB BLOOD ORDERABLES Final Result Performing Organization Address City/[facility]/ZIP Co de Phone Number [facility]
[address] [place] [address], * Amylase (08/19/2024 3:02 PM EDT) Pathologist [facility] Amylase 73 28 - 100 U/L 08/19/2024 3:36 PM EDT [facility] Blood Line / Unknown 08/19/2024 3: 02 PM EDT 08/19/2024 3:10 PM EDT Kt Fan DO LAB BLOOD ORDERABLES Final Result Performing Organization Address [facility] de Phone Number [facility]
[address] [place] [address], * Hepatitis C Antibody (04/12/2024) Pathologist [facility] Hep C Virus Ab negative Blood Historical Provider LAB BLOOD ORDERABLES Lena l Result from Last 3 Months or Most Recently Relevant to Health Maintenance Insurance [facility] Care Teams Wildlife Management Professor Relationship Specialty Start Date End Date Norma Friedman APRN [address] [place] G3 RAFAELA APPIAH [address] PCP - General Family Medicine 05/14/24
--- OUTSIDE RECORDS SUMMARY | 2024-10-13 18:12 | XMS_ITS | Encounter Summary ---
[facility] Address [address] [place] [address] Care Team Providers Care Manager Work Name Role Phone Norma Friedman APRN Primary Care Provider + [phone] Encounter Details Date Type Department Care Team (Late st Contact Info) Description 08/19/2024 Telephone [facility] OBGYN [address] [place] [address] Jacey Mathews, INFECTION CONTROL SPECIALIST 1700 [facility] [address] [place] [address] Social History Tobacco Use Types Packs/Day Years Used Date Smoking Tobacco: Never Smokeless Tobacco: Never Alcohol Use Standard Drinks/Week Comments Never 0 (1 standard drink = 0.6 oz pur e alcohol) [facility] Utilities Answer Date Recorded In the past 12 months has [employer], [employer], oil, or water [employer] threatened to shut off services in your [...] and heating? Not hard at all 05/28/2024 [facility] of Occupat ional [facility] - Occupational Stress Questionnaire Answer Date [...] Visit [facility] GASTROENTEROLOGY [address] [address] Robbin Escalante MD [address] [address] documented as of this encounter Visit Diagnoses Not on filedocumented in this encounter Additional Health Concerns Assessment Noted Time PHQ-2 Depression Total Score: 2 05/28/19 25 4:39 PM EDT documented as of this encounter Care Teams Manager Work Relationship Specialty Start Date End Date Norma Friedman APRN [address] [place] G3 RAFAELA APPIAH [address] PCP - General Family Medicine 05/14/24 documented as of this encounter
--- OUTSIDE RECORDS SUMMARY | 2024-10-13 18:12 | XMS_ITS | Encounter Summary ---
Author Organization [facility] Address [address] [place] [address] Care Team Providers Care Precinct I Police Sergeant Name Role Phone Elder Norma FERNÁNDEZ Primary Care Provider + [phone] Encounter Details Date Type Department Care Team (Latest Contact Info) Description 08/29/2024 Travel Social History Tobacco Use Types Packs/Day Years Used Date Smoking Tobacco: Never Smokeless Tobacco: Never Alcohol Use Standard Drinks/Week Comments Never 0 (1 standard drink = 0.6 oz pur e alcohol) [facility] Utilities Answer Date Recorded In the past 12 months has [employer] electric, gas, oil, or water company threatened [...] and heating? Not hard at all 05/28/2024 [facility] of Occupat ional Health - Occupational [...] GED or equivalent No 05/28/2024 Preferred Language Ecuadorean 05/28/2024 PHQ-2 Answer Date Recorded Patient Health [...] Visit [facility] GASTROENTEROLOGY 1720 [facility] [address] [place] [phone] Robbin Escalante MD 1720 [facility] [address] [place] [address] documented as of this encounter Visit Diagnoses Not on filedocumented in this encounter Additional Health Concerns Assessment Noted Time PHQ-2 Depression Total Score: 2 05/28/19 25 4:39 PM EDT documented as of this encounter Care Teams Precinct I Police Sergeant Relationship Specialty Start Date End Date Norma Friedman APRN [address] [place] G3 RAFAELA APPIAH [address] PCP - General Family Medicine 05/14/24 documented as of this encounter
--- OUTSIDE RECORDS SUMMARY | 2024-10-13 18:12 | XMS_ITS | Encounter Summary ---
Author Organization Healthcare Address [address] [place] [address] Care Team Providers Care Wallpaper Inspector And Shipper Name Role Phone Norma Friedman JOLENE Primary Care Provider [phone] Lizz Trinh RN Unavailable Unavailable Encounter Details Date Type Department Care Team (Late Contact Info) Description 07/22/2024 [facility] [address] [place] [address] Sandy Cardenas MD 1700 [facility] [address] [place] [address] Social History Tobacco Use Types Packs/Day Years [...] Info) Description 10/17/2024 8:30 AM EDT Appointment [facility] Ultrasound [address] [place] [address] 10/17/2024 9:15 AM EDT Routine Medical Office Building Obstetrics and Gynecology [address] [facility], [address] [place] [address] Laury Cruz MD [address] [facility] [address] [place] [address] 10/24/2024 8:00 AM EDT Office Visit [facility] [place] [address] [facility], [address] [place] [address] Nneka Block MD [address] [place] [address] 12/25/2024 1:00 PM EST Office Visit Professional [facility] Nephrology, Bone & Mineral Metabolism [address] [facility], [address] [place] [address] documented as of this encounter Visit Diagnoses Not on filedocumented in this encounter Care Teams Wallpaper Inspector And Shipper Relationship Specialty Start Date End Date Norma Friedman APRN [address] [place] [address] PCP - General 09/23/24 Lizz Trinh, RN [facility] Registered Nurse Cardiology 09/26/24 documented as of this encounter
--- OUTSIDE RECORDS SUMMARY | 2024-10-13 18:12 | XMS_ITS | Encounter Summary ---
[facility] Address [address] [place] [id number] Care Team Providers Care Corner Trimmer Operator Name Role Phone Ivyashlyn Norma FERNÁNDEZ Primary Care Provider + [phone] Encounter Details Date Type Department Care Team (Late st Contact Info) Description 08/28/2024 Telephone [facility] OBGYN [address] [address] Staci Jain MD [address] [place] [phone] Social History Tobacco Use Types Packs/Day Years Used Date Smoking Tobacco: Never Smokeless Tobacco: Never Alcohol Use Standard Drinks/Week Comments Never 0 (1 standard drink = 0.6 oz pur e alcohol) [facility] Utilities Answer Date Recorded In the past 12 months has [employer], gas, oil, or water [employer] threatened to shut off services in your [...] 05/28/2024 [facility] of Occupat ional Health - Occupational [...] sit with a family member admitted to [facility] today and does not know if she can make it back for labs (BMP). She does have an appt in [facility] at 10 am tomorrow. Advisedthat it [...] states she was supposed to come into [place] office today to have labs drawn however sheis currently hung up [facility] is wondering if she could just have labs drawn there? documented in this encounter Plan of Treatment Upcoming Encounters Date Type Department Care Team (Late st Contact Info) Description 01/20/2025 3:30 PM EST Office Visit [facility] GASTROENTEROLOGY 1720 [facility] [address] [place] [address] Robbin Escalante MD 1720 [facility] [address] [place] [address] documented as of this encounter Visit Diagnoses Not on filedocumented in this encounter Additional Health Concerns Assessment Noted Time PHQ-2 Depression Total Score: 2 05/28/19 25 4:39 PM EDT documented as of this encounter Care Teams Corner Trimmer Operator Relationship Specialty Start Date End Date Norma Friedman APRN [address] [place] G3 RAFAELA APPIAH [address] PCP - General Family Medicine 05/14/24 documented as of this encounter
--- OUTSIDE RECORDS SUMMARY | 2024-10-13 18:12 | XMS_ITS | Referral Summary ---
Author Organization [employer] ([place], [place], [place], [place]) Address [address] [place] [address] Care Team Providers Care Tare Man Name Role Phone Unavailable Primary Care [...]
--- OUTSIDE RECORDS SUMMARY | 2024-10-13 18:12 | XMS_ITS | Encounter Summary ---
[facility] Address [address] [place] [id number] Care Team Providers Care Finishing Tunnel Operator Name Role Phone Ivyashlyn Norma FERNÁNDEZ Primary Care Provider + [phone] Encounter Details Date Type Department Care Team (Late st Contact Info) Description 09/02/2024 Telephone [facility] OBGYN [address] [address] Staci Jain MD [address] [place] [id number] Social History Tobacco Use Types Packs/Day Years Used Date Smoking Tobacco: Never Smokeless Tobacco: Never Alcohol Use Standard Drinks/Week Comments Never 0 (1 standard drink = 0.6 oz pur e alcohol) [facility] Utilities Answer Date Recorded In the past 12 months has [employer], [employer], oil, or water [employer] threatened to shut off services in your [...] GED or equivalent No 05/28/2024 Preferred Language Rwandan 05/28/2024 PHQ-2 Answer Date Recorded Patient Health [...] EDT She just got d/c'd from [facility] 2 hours ago and they gave her a total 10 MLE of K+ and 3 units of Mag and 2 liters of LR. She has decided to transfer care to [facility] as it iscloser to her like 15 min away. She wants you (Dr. Jain) to know this has nothing to you but rather the nurses and butcher scullion doctor did not relay the labs to you in a faster fashion. She said you can call her if you want and she is not angry. Dr. Jain was notified. * Telephone Encounter - Frederick Gruber RN - 09/02/2024 3:10 PM EDT [place]at message sent to the pt regarding outpt infusion apt tomorrow at [facility]. documented in this encounter Plan of Treatment Upcoming Encounters Date Type Department Care Team (Late st Contact Info) Description 01/20/2025 3:30 PM EST Office Visit [facility] GASTROENTEROLOGY [address] [place] [address] [place] [address] Robbin Escalante MD [address] [place] [address] [place] [address] documented as of this encounter Visit Diagnoses Not on filedocumented in this encounter Additional Health Concerns Assessment Noted Time PHQ-2 Depression Total Score: 2 05/28/19 25 4:39 PM EDT documented as of this encounter Care Teams Finishing Tunnel Operator Relationship Specialty Start Date End Date Norma Friedman APRN [address] [place] [address] [place] [address] PCP - General Family Medicine 05/14/24 documented as of this encounter
--- OUTSIDE RECORDS SUMMARY | 2024-10-13 18:12 | XMS_ITS | Encounter Summary ---
[facility] Address [address] [place] [address] Care Team Providers Care Chute Loader Name Role Phone Elder Norma FERNÁNDEZ Primary Care Provider + [phone] Encounter Details Date Type Department Care Team (Latest Contact Info) Description 08/19/2024 Travel Social History Tobacco Use Types Packs/Day Years Used Date Smoking Tobacco: Never Smokeless Tobacco: Never Alcohol Use Standard Drinks/Week Comments Never 0 (1 standard drink = 0.6 oz pur e alcohol) [facility] Utilities Answer Date Recorded In the past 12 months has Mr. Number electric, gas, oil, or water company threatened [...] and heating? Not hard at all 05/28/2024 [facility] [place] of Occupat ional Health - Occupational Stress [...] 2:34 PM EDT Nneka Cross RN * [place] Suicide Severity Rating Scale (Screener/Recent Self-Report) Question Answer Date of Assessment Author 6. Suicidal Behavior (Lifetime) No 2:34 PM EDT Nneka Cross RN documented as of this encounter Plan of Treatment Upcoming Encounters Date Type Department Care Team (Late st Contact Info) Description 01/20/2025 3:30 PM EST Office Visit [facility] GASTROENTEROLOGY [address] [address] Robbin Escalante MD [address] [address] documented as of this encounter Visit Diagnoses Not on filedocumented in this encounter Additional Health Concerns Assessment Noted Time PHQ-2 Depression Total Score: 2 05/28/19 25 4:39 PM EDT documented as of this encounter Care Teams Chute Loader Relationship Specialty Start Date End Date Norma Friedman APRN [address] [place] [address] [place] [address] PCP - General Family Medicine 05/14/24 documented as of this encounter
--- OUTSIDE RECORDS SUMMARY | 2024-10-13 18:12 | XMS_ITS | Encounter Summary ---
Author Organization [facility] Address [address] [place] [address] Care Team Providers Care Actuarial Mathematician Name Role Phone Elder Kadedev Coy APRN Primary Care Provider +1- [phone] Lizz Trinh RN Unavailable Unavailable Reason for Referral * Consultation (Routine) - Authorized Specialty Diagnoses / Procedures Referred By Tarik pedersen Referred To Contact Nephrology Diagnoses History of proteinuria syndrome care, subsequent , second trimester Staci Jain MD [address] [address] Phone: tel: fax: [facility] Nephrology, Bone & Mineral Metabolism [address] [facility], [address] [place] [address] Phone: tel: fax: Referral ID Status Reason Start Date Expiration Date Visits Requested Visits Authorized [id number] Authorized Specialty Services Required 07/22/2024 01/21/2026 1 1 Encounter Details Date Type Department Care Team (Late st Contact Info) Description 07/22/2024 [facility] [address] [place] [address] Staci Jain MD [address] [place] [address] History of proteinuria syndrome (Primary Dx); care, [...] Info) Description 10/17/2024 8:30 AM EDT Appointment [facility] Ultrasound [address] [place] [address] 10/17/2024 9:15 AM EDT Routine Medical Office Building Obstetrics and Gynecology [address] [facility], [address] [place] [address] Laury Cruz MD [address] [facility] [address] [place] [address] 10/24/2024 8:00 AM EDT Office Visit [facility] [place] [address] [facility], [address] [place] [address] Nneka Block MD [address] [place] [address] 12/25/2024 1:00 PM EST Office Visit [facility] Nephrology, Bone & Mineral Metabolism [address] [facility], [address] [place] [address] Scheduled Referrals Name Type Priority Associated Diagnoses Orde r Schedule Ambulatory referral to Nephrology Outpatient Referral Routine History of proteinuria syndrome care, subsequent , second trimester Expected: 07/22/2024 (Approximate), Expires: 01/23/2026 documented as of this encounter Visit Diagnoses Diagnosis History of proteinuria syndrome- Primary care, subsequent , second trimester documented in this encounter Care Teams Actuarial Mathematician Relationship Specialty Start Date End Date Norma Friedman APRN [address] [place] [address] PCP - General 09/23/24 Lizz Trinh, RN [facility] Registered Nurse Cardiology 09/26/24 documented as of this encounter
--- OUTSIDE RECORDS SUMMARY | 2024-10-13 18:12 | XMS_ITS ---
Author Organization [facility] Address [address] [place] [address] Care Team Providers Care Benefits Advisor Name Role Phone Unavailable Primary Care Provider Unavailabl e Transplant Episode Kidney Potential Donor [facility] ([place], [place]) - [facility] Referred on 05/03/2022 Marked as Deferred on 05/04/2022 Reason: Other Kidney CoordinatorNadine Augustin R.N. Phone: N/A Fax: N/A Email: N/A Care Team Name Role Phone Fax Email Nadine Augustin R.N. Kidney Coordinator N/A N/A N/A Events Pre-Donation Referred: 05/03/2022
--- OUTSIDE RECORDS SUMMARY | 2024-10-13 18:12 | XMS_ITS | Clinical Summary ---
Author Organization [facility] Address [address] [place] [address] Care Team Providers Care Buggy Man Name Role Phone Unavailable Primary Care Provider Unavailabl e Source Comments [facility] is fully rolled out with thefollowing exceptions:General Clinical Research [facility] Social History Tobacco Use [...]
--- OUTSIDE RECORDS SUMMARY | 2024-10-13 18:12 | XMS_ITS | Clinical Summary ---
Author Organization [facility] [place] [address] Phone Care Team Providers Care School Crossing Guard Name Role Phone Unavailable Primary Care [...] migh t be different from the original. [facility] - Edwardo Ojeda MD Interventional Pain Protocol: NS Appt 03/29/22 Letter Sent Maxime report completed (EVERY 3 MONTHS) ( 03/23/22) Pharmacy: [facility] [address] [place] [address] [address] [facility] south - [phone] No known active problems Social History Tobacco [...] patient's age to complete this topic Insurance [employer] [facility] [id number]
--- OUTSIDE RECORDS SUMMARY | 2024-10-13 18:12 | XMS_ITS | Encounter Summary ---
[facility] Address [address] [place] [id number] Care Team Providers Care Broiler Chef Or Cook Name Role Phone IvyNorma goldberg JOLENE Primary Care Provider + [phone] Reason for Visit * Reason Onset Date Comments Advice Only 10/10/2024 Encounter Details Date Type Department Care Team (Late st Contact Info) Description 10/10/2024 Telephone [facility] MATERNAL MEDICINE [address] [facility] [place] [address] [place] [address] Lyudmila Germain, chocolate temperer Only Social History Tobacco Use Types Packs/Day Years Used Date Smoking Tobacco: Never Smokeless Tobacco: Never Alcohol Use Standard Drinks/Week Comments Never 0 (1 standard drink = 0.6 oz pur e alcohol) [facility] Utilities Answer Date Recorded In the past 12 months has [employer], gas, oil, or water [employer] threatened to shut off services in your [...] hard at all 05/28/2024 [facility] [place] of Occupat ional Health - Occupational Stress [...] Late entry: Patient called desiring appointment with [facility] due to hypokalemia and hypomagnesemia requiring infusions every other day. Per advertising coordinator, referral was received here last week but our physicians determined patient needs to continue receiving [facility] care at as she sees otherspeciality physicians (cardiology, nephrology) there as well. Discussed this with patient who states Dr. Weller () refused to see her again and she has no options. Patient reported her physicians at [facility] told her if she has another cardiac event she will . 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 Patient states cardiology refuses to see her until she ispostpartum - although it appears she has an appointment on 10/24. Per note from nephrology at , limited options for treatment other than continued repletion. Informed patient our office will reach out to [facility] at to determine if there is an issue in scheduling her there and we will call her back. After our office talked to [facility], a nurse there states there is no issue with her scheduling and she is more than welcome to come back for appointments. Called patient back, informed her she is welcome to schedule a follow-up at [facility] and gave her their office number. documented in this encounter Plan of Treatment Upcoming Encounters Date Type Department Care Team (Late st Contact Info) Description 01/20/2025 3:30 PM EST Office Visit [facility] GASTROENTEROLOGY [address] [facility] [address] [place] [address] Robbin Escalante MD [address] [facility] [address] [place] [address] documented as of this encounter Visit Diagnoses Not on filedocumented in this encounter Additional Health Concerns Assessment Noted Time PHQ-2 Depression Total Score: 2 05/28/19 4:39 PM EDT documented as of this encounter Care Teams Broiler Chef Or Cook Relationship Specialty Start Date End Date Norma Friedman APRN [address] [place] [address] [place] [address] PCP - General Family Medicine 05/14/24 documented as of this encounter
--- OUTSIDE RECORDS SUMMARY | 2024-10-13 18:13 | XMS_ITS ---
Author Organization [facility] Address [address] [place] [address] Care Team Providers Care Teletype Or Varitype Keyboard Operator Name Role Phone Norma Friedman APRN Primary Care Provider Motherhood Connection Status:Engaged (Active) Start date:05/23/2024 Enrollment date:05/23/2024 Case Team Name Relationship Phone Bindu Castellon RN Nurse Navigator Christy Zabala RN(Responsible Staff) Nurse Navig ator Continued Care and Services Coordination
--- OUTSIDE RECORDS SUMMARY | 2024-10-13 18:13 | XMS_ITS | Clinical Summary ---
Author Organization [employer] ([place], [place], [place], [place]) Address [address] [place] [address] Care Team Providers Care Document Control Associate Name Role Phone Unavailable Primary Care [...]
--- OUTSIDE RECORDS SUMMARY | 2024-10-13 18:13 | XMS_ITS | Encounter Summary ---
Author Organization Healthcare Address [address] [place] [address] Care Team Providers Care Project Structural Engineer Name Role Phone Norma Friedman APRN Primary Care Provider +1- [phone] Encounter Details Date Type Department Care Team [...] more drinks on one occasion? Never 09/23/2024 Boyd Depression Scale Answer Date Recorded Boyd Depression Scale Total 0 09/23/2024 The thought [...] Info) Description 10/17/2024 8:30 AM EDT Appointment [facility] Ultrasound [address] [place] [address] 10/17/2024 9:15 AM EDT Routine Medical Office Building Obstetrics and Gynecology [address] [facility], [address] [place] [address] Laury Cruz MD [address] [place] [address] 10/24/2024 8:00 AM EDT Office Visit [facility] [place] [address] [facility], [address] [place] [address] Nneka Block MD [address] [place] [address] 12/25/2024 1:00 PM EST Office Visit [facility] Nephrology, Bone & Mineral Metabolism [address] [facility], [address] [place] [address] documented as of this encounter Visit Diagnoses Not on filedocumented in this encounter Additional Health Concerns Assessment Noted Time A Body Mass Index follow-up plan has been documented for the patient 09/23/2024 8:28 PM EDT documented as of this encounter Care Teams Project Structural Engineer Relationship Specialty Start Date End Date Norma Friedman APRN [address] [place] [address] PCP - General 09/23/24 documented as of this encounter
--- OUTSIDE RECORDS SUMMARY | 2024-10-13 18:13 | XMS_ITS | Encounter Summary ---
Author Organization [facility] Address [address] [place] [address] Care Team Providers Care Relief Master Name Role Phone Norma Friedman [facility] Primary Care Provider +1- [phone] Lizz Trinh RN Unavailable Unavailable Encounter Details [...] more drinks on one occasion? Never 09/23/2024 [place] Depression Scale Answer Date Recorded [place] Depression Scale Total 0 09/23/2024 The thought [...] EDT Appointment [facility] Ultrasound [address] [place] [address] 10/17/2024 9:15 AM EDT Routine Medical Office Building Obstetrics and Gynecology [address] [facility], [address] [place] [address] Laury Cruz MD [address] [place] [address] 10/24/2024 8:00 AM EDT Office Visit [facility] [place] [address] [facility], [address] [place] [address] Nneka Block MD [address] [place] [address] 12/25/2024 1:00 PM EST Office Visit [facility] Nephrology, Bone & Mineral Metabolism [address] [facility], [address] [place] [address] documented as of this encounter Visit Diagnoses Not on filedocumented in this encounter Additional Health Concerns Assessment Noted Time A fall risk assessment has been complete d for the patient 09/26/2024 8:15 AM EDT A Body Mass Index follow-up plan has been documented for the patient 09/27/2024 10:22 AM EDT documented as of this encounter Care Teams Relief Master Relationship Specialty Start Date End Date Norma Friedman APRN [address] [place] [address] PCP - General 09/23/24 Lizz Trinh, RN [facility] Registered Nurse Cardiology 09/26/24 documented as of this encounter
--- OUTSIDE RECORDS SUMMARY | 2024-10-13 18:13 | XMS_ITS | Encounter Summary ---
Author Organization [facility] Address [address] [place] [address] Care Team Providers Care Marketing/Sales Person Name Role Phone Unavailable Primary Care Provider Unavailabl e Reason for Referral * Consultation (Routine) - Closed Specialty Diagnoses / Procedures Referred By Contac t Referred To Contact Nephrology Diagnoses Hypokalemia Liborio Weller MD [address] [facility] [address] [place] [address] Phone: tel: fax: [facility] Nephrology, Bone & Mineral Metabolism [address] [facility], [address] [place] [address] Phone: tel: fax: Referral ID Status Reason Start Date Expiration Date V isits Requested Visits Authorized [id number] Closed Specialty Services Required 09/14/2024 03/16/2026 1 1 Scheduling Instructions Severe hypokalemia in the setting of Encounter Details Date Type Department Care Team (Late st Contact Info) Description 09/14/2024 Telephone [facility] Obstetrics & Gynecology [address] [place] [address] Susi Wren MD [address] [place] [address] Social History Tobacco Use Types [...] had an outpatient workup with Nephrology at [facility] that was negative, she was [...] [facility] Ultrasound [address] [place] [address] 10/17/2024 9:15 AM EDT Routine Medical Office Building Obstetrics and Gynecology [address] [facility], [address] [place] [address] Laury Cruz MD [address] [facility] [address] [place] [address] 10/24/2024 8:00 AM EDT Office Visit [facility] [place] [address] [facility], [address] [place] [address] Nneka Block MD [address] [place] [address] 12/25/2024 1:00 PM EST Office Visit [facility] Nephrology, Bone & Mineral Metabolism [address] [facility], [address] [place] [address] Scheduled Referrals Name Type Priority Associated Diagnoses Order Schedule Ambulatory referral to Nephrology Clinic Outpatient Referral Routine Hypokalemia 1 Occurrences starting 09/14/2024 until 03/18/2026 documented as of this encounter Visit Diagnoses Diagnosis Hypokalemia- Primary Hypopotassemia documented in this encounter
--- OUTSIDE RECORDS SUMMARY | 2024-10-13 18:13 | XMS_ITS | Clinical Summary ---
Author Organization Healthcare Address [address] [place] [address] Care Team Providers Care Talent Associate Name Role Phone Norma Friedman JOLENE Primary Care Provider +1- [phone] Lizz Trinh RN Unavailable Unavailable Allergies Active [...] dermatitis with skin contact Medications Prenat MV-Min w/Ur-Htduqv-VKE ( COMPLETE PO) Active potassium chloride CR [...] chew. 60 tablet 1 025 2024 Discontinued Awovwbot-Paw-Fu-F A ( 1 + IRON PO) 2024 Discontinued Active Problems Problem Noted Date Diagnosed Date Hypokalemia 09/25/2024 Estimated Date of Delivery Comme nts Yes 12/01/2024 Encounters Date Type Department Care Team Description 09/26/2024 9:06 AM EDT - 09/26/2024 11:59 PM EDT Hospital Encounter Medical Office Building Cardiac Diagnostic Testing Medical Office Building Echo Lab [address] [facility], [address] [place] [address] Palpitations; Syncope and collapse Discharge Disposition: Home or Self Care 09/26/2024 8:00 AM EDT Office Visit [facility] [place] [address], [address] [place] [address] Dilip Vasquez MD Syncope and collapse (Primary Dx); Atrial fibrillation, unspecified type (CMS/HCC); Palpitations 09/26/2024 Travel 09/25/2024 2:20 PM EDT Office Visit [facility] Nephrology, Bone & Mineral Metabolism [address] [facility] [address], [address] [place] [address] Bill Patrick MD Hypokalemia (Primary Dx) 09/25/2024 Travel 09/23/2024 10:00 AM EDT Office Visit Medical Office Building Obstetrics and Gynecology [address] [facility], [address] [place] [address] Liborio Weller MD Supervision of high risk , antepartum (Primary Dx); Cardiac arrhythmia, unspecified cardiac arrhythmia type 09/23/2024 Travel 09/17/2024 Telephone [facility] Nephrology, Bone & Mineral Metabolism [address] [facility] [address], [address] [place] [address] Sherley Gold CNA 09/17/2024 Telephone Medical Office Building Obstetrics and Gynecology [address], [address] [place] [address] Josefina Shay RN 09/14/2024 Telephone [facility] Obstetrics & Gynecology [address] [place] [address] Susi Wren MD 07/22/2024 [facility] [address] [place] [address] Staci Jain MD History of proteinuria syndrome (Primary Dx); care, subsequent , second trimester 07/22/2024 [facility] [address] [place] [address] Sandy Cardenas MD from Last 3 Months [...] more drinks on one occasion? Never 09/23/2024 [place] Depression Scale Answer Date Recorded [place] Depression Scale Total 0 09/23/2024 The [...] Description 10/17/2024 8:30 AM EDT Appointment [facility] Ultrasound [address] [place] [address] 10/17/2024 9:15 AM EDT Routine Medical Office Building Obstetrics and Gynecology [address] [facility], [address] [place] [address] Laury Cruz MD [address] [place] [address] 10/24/2024 8:00 AM EDT Office Visit [facility] [place] [address], [address] [place] [address] Dilip Vasquez MD [address] [place] [address] 12/25/2024 1:00 PM EST Office Visit [facility] Nephrology, Bone & Mineral Metabolism [address], [address] [place] [address] Health Maintenance Due Date Last Done Comments [facility]-/Child/Adol SDOH Screenings 1991 [facility]-Varicella Vaccines (1 of 2 - 13+ 2-dose series) 2004 [facility]- SDOH Screenings 2009 [facility]-Adult SDOH Screenings 2009 [facility]-Hepatitis B Vaccines (1 of 3 - 19+ 3-dose series) 2010 [facility]-Pap Smear 2012 [facility]-Cervical Cancer Screening 2021 [facility]-HPV/Cotest 2021 I[facility]-LYRHD-88 Vaccine (2 - 2024- season) 2024 05/04/2022 [...] (SO) Routine 09/26/2024 9:32 AM EDT Hypokalemia ADULT PATCH MONITOR - 7 DAY Routine 09/26/2024 9:23 AM EDT Palpitations Syncope and collapse ECG ADULT Routine 09/26/2024 8:21 AM EDT [...] Resul t [facility] [address] [place] [address] * Protein, Random, Urine with Creatinine (09/26/2024 10:03 AM EDT) Protein, Urine 26 mg/dL 09/26/2024 12:08 PM EDT [facility] Creatinine, Urine 199 mg/dL 09/26/2024 12:08 PM EDT [facility] Protein/Creati nine Ratio 0.1 mg/mg Creat 09/26/2024 12:08 PM EDT [facility] Urine Urine specimen obtained by clean catch procedure / Unknown Non-blood Collection / Unknown 09/26/2024 10:03 AM EDT 09/26/2024 10:04 AM EDT us Bill Patrick MD LAB URINE ORDERABLES Final Resul t Performing Organization Address City/[facility]/ZIP Co de Phone Number [facility] [address] [place] [address] * Sodium, urine, random (09/26/2024 10:02 AM EDT) Sodium, Urine 110 mmol/L 09/26/2024 11:55 AM EDT [facility] Urine Urine specimen obtained by clean catch procedure / Unknown Non-blood Collection / Unknown 09/26/2024 10:02 AM EDT 09/26/2024 10:02 AM EDT us Bill Patrick MD LAB URINE ORDERABLES Final Resul t Performing Organization Address City/[facility] Co de Phone Number [facility] [address] [place] [address] * Potassium, urine, random (09/26/2024 10:02 AM EDT) Potassium, Urine 43 mmol/L 09/26/2024 11:55 AM EDT [facility] Urine Urine specimen obtained by clean catch procedure / Unknown Non-blood Collection / Unknown 09/26/2024 10:02 AM EDT 09/26/2024 10:02 AM EDT us Bill Patrick MD LAB URINE ORDERABLES Final Resul t Performing Organization Address [facility] de Phone Number [facility] [address] [place] [address] * Osmolality, urine (09/26/2024 10:02 AM EDT) Osmolality, Urine 404 50 - 1,200 mOsm/kg 09/26/2024 1:48 PM EDT [facility] Urine Urine specimen obtained by clean catch procedure / Unknown Non-blood Collection / Unknown 09/26/2024 10:02 AM EDT 09/26/2024 10:02 AM EDT us Bill Patrick MD LAB URINE ORDERABLES Final Resul t Performing Organization Address City/[facility] Co de Phone Number [facility] [address] [place] [address] * SSA 52 and 60 (Ro) (YARA) Antibodies, IgG (09/26/2024 9:32 AM EDT) SSA-52 (RO52) (YARA) Antibody, IgG 2 0 - 40 AU/mL 09/28/2024 5:47 PM EDT [facility] (TERRI) SSA-60 (RO60) (YARA) Antibody, IgG 0 0 - 40 AU/mL 09/28/2024 5:47 PM EDT [facility] (TERRI) Serum 09/26/2024 9:32 AM EDT 09/26/2024 9:32 AM EDT Narrative [facility] (TERRI) - 09/28/2024 5:47 PM [...] AU/mL or Greater .......... Positive Performed By: [facility] [address] [place] [address] Hair Colorist: Brandon Bell MD, PhD CLIA Number: [id number] us Bill Patrick MD LAB REF LAB BLOOD AND FLUID ORD Final Result [facility] ([employer]) [address] [place] [address] * SSB (LA) (YARA) ANTIBODY, IGG (09/26/2024 9:32 AM EDT) SSB (LA) (YARA) Antibody, IgG 0 0 - 40 AU/mL 09/28/2024 5:47 PM EDT [facility]) Serum Venous blood specimen / Unknown 09/26/2024 9:32 AM EDT 09/26/2024 9:32 AM EDT Narrative [facility]) - 09/28/2024 5:47 PM EDT INTERPRETIVE INFORMATION: [...] (PSS) also have this antibody. Performed By: [facility] [address] [place] [address] Hair Colorist: Brandon Bell MD, PhD CLIA Number: [id number] us Bill Patrick MD LAB BLOOD ORDERABLES Final Resul t Performing Organization Address City/[facility] Co de Phone Number [facility]) [address] [place] [address] * Rheumatoid factor, plasma (09/26/2024 9:32 AM EDT) Pathologist [facility] Rheumatoid Factor, Plasma <10 <14 IU/mL 09/26/2024 1:49 PM EDT [facility] Blood Venous blood specimen / Unknown Venipuncture / Unknown 09/26/2024 9:32 AM EDT 09/26/2024 9:32 AM EDT Bill Patrick MD LAB BLOOD ORDERABLES Final Resul t [facility] [address] [place] [address] * Antinuclear Antibody (JEFFERY), HEp-2, IgG (09/26/2024 9:32 AM EDT) JEFFERY INTERPRETIVE COMMENT See Note 09/28/2024 5:13 PM EDT [facility] ([facility]RI) Anti Nuc Ab Screen <1:80 <1:80 09/28/2024 5:13 PM EDT [facility] (TERRI) Blood Venous blood specimen / Unknown Venipuncture / Unknown 09/26/2024 9:32 AM EDT 09/26/2024 9:32 AM EDT Narrative [facility] ([facility]) - 09/28/2024 5:13 PM [...] rings, and cytoplasmic speckled patterns. Performed By: [facility] [address] [place] [address] Hair Colorist: Brandon Bell MD, PhD CLIA Number: [id number] Bill Patrick MD LAB BLOOD ORDERABLES Final Resul t [facility]) [address] [place] [address] * (ABNORMAL) Osmolality (09/26/2024 9:32 AM EDT) Osmolality, Serum 273(L) 275 - 295 mOsm/Kg 09/26/2024 2:10 PM EDT [facility] Blood Venous blood specimen / Unknown Venipuncture / Unknown 09/26/2024 9:32 AM EDT 09/26/2024 9:32 AM EDT us Bill Patrick MD LAB BLOOD ORDERABLES Final Resul t [facility] [address] [place] [address] * (ABNORMAL) Renal function panel (09/26/2024 9:32 AM EDT) Glucose, Plasma 87 74 - 99 mg/dL 09/26/2024 12:24 PM EDT [facility] BUN, Plasma 5(L) 7 - 21 mg/dL 09/26/2024 12:24 PM EDT [facility] Creatinine, Plasma 0.72 0.60 - 1.10 mg/dL 09/26/2024 12:24 PM EDT [facility] BUN/Creatinine Ratio 7 09/26/2024 12:24 PM EDT [facility] Sodium, Plasma 135(L) 136 - 145 mmol/L 09/26/2024 12:24 PM EDT [facility] Potassium, Plasma 3.1(L) 3.6 - 4.9 mmol/L 09/26/2024 12:24 PM EDT [facility] Chloride, Plasma 95(L) 97 - 107 mmol/L 09/26/2024 12:24 PM EDT [facility] CO2, Plasma 26 22 - 29 mmol/L 09/26/2024 12:24 PM EDT [facility] Anion Gap 14 6 - 16 mmol/L 09/26/2024 12:24 PM EDT [facility] Total Calcium, Plasma 9.4 8.9 - 10.2 mg/dL 09/26/2024 12:24 PM EDT [facility] Phosphorus, Plasma 3.5 2.5 - 4.5 mg/dL 09/26/2024 12:24 PM EDT [facility] Albumin, Plasma 3.6 3.5 - [...] MD LAB BLOOD ORDERABLES Final Resul t [facility] [address] [place] [address] * Adult Patch Monitor - 7 Day (09/26/2024 9:23 AM EDT) BSA 1.78 m2 BIOTELEMETRY Anatomical Region Laterality Modality Other Narrative 10/12/2024 5:12 PM EDT DILIP VASQUEZ MD has been notified of the [...] bpm on Day 3 :47:57 pm SVE(s): [place] was 3.46 %, [id number] total SVE(s) SV Arrhythmia(s): 21 events, longest event 7 beats on Day :05:26 am, fastest event 111 bpm on :02:39 am PVC(s): [place] was 0.03 %, 189 total PVC(s), 1 disparate morphologies Patient recorded 6 event(s) during the monitoring period PHYSICIAN COMMENTS: Predominant rhythm is sinus rhythm. Occasional premature atrial and rare premature ventricular complexes were recorded during the monitoring period. No malignant cardiac rhythms were recorded during the monitoring period. Triggered events were not associated with clinical arrhythmias (all during sinus rhythm). Dilip Vasquez MD CV CARDIAC SERVICES PROCED URES Final Result * ECG Adult (Now - Performed in your clinic) (09/26/2024 8:21 AM EDT) EKG DIAGNOSIS CLASS Normal MUSE ECG Ventricular Rate 84 BPM MUSE ECG Atrial Rate 84 BPM MUSE ECG OR Interval 148 ms MUSE ECG QRSD Interval 74 ms MUSE ECG QT Interval 374 ms MUSE ECG QTC Interval 441 ms MUSE ECG P Sargents 60 degrees MUSE ECG R Sargents 36 degrees MUSE ECG T Wave Sargents 55 degrees MUSE ECG Diagnosis Normal sinus rhythm with sinus arrhythmia MUSE ECG Diagnosis Normal ECG MUSE ECG Diagnosis MUSE ECG Diagnosis Confirmed by Abad South ([id number]) on 09/26/2024 12:13:59 PM MUSE ECG 09/26/2024 8:21 AM EDT 09/26/2024 12:13 PM EDT Dilip Vasquez MD ECG ORDERABLES Final Resu lt MUSE ECG * (ABNORMAL) POCT Urinalysis Dipstick (09/23/2024 10:54 AM EDT) POCT Urine Color Yellow POCT Urine Clarity Clear POCT Glucose Urine Negative Negative mg/dL POCT Bilirubin, Urine Small(A) Negative POCT Ketones, Urine 40(A) Negative mg/dL POCT Specific [place], Urine 1.015 POCT Blood, Urine Negative Negative POCT pH, Urine >=9.0(A) 5.0 to 8.0 POCT Protein, Urine 100(A) Negative mg/dL POCT Urobilinogen, Urine 0.2 0.2, 1 E.U./dL POCT Nitrite, Urine Negative Negative POCT Leukocyte Esterase, Urine Negative Negative Test Strip Lot Number [id number] Test Strip Lot Expiration 07/2025 Urine Urine specimen obtained by clean catch procedure / Unknown 09/23/2024 10:54 AM EDT Liborio Weller MD POINT OF CARE TEST ENTER/EDIT ORDERABLES Edited Result - Final * HIV 1 & 2 Antibody/Antigen Screen (01/22/2019 9:57 AM EST) Pathologist [facility] HIV 1 Result NONREACTIVE Screening for HIV 1 and 2 antibodies is NONREACTIVE. No confirmatory testing is required. [facility]QUEST 01/22/2019 9:57 AM EST 01/22/2019 12:12 PM EST Pradip Damico APRN, CNM LAB BLOOD ORDERABLES Fin al Result Performing Organization Address City/State/[facility] Co de Phone Number [facility]QUEST * Hepatitis C Antibody (01/22/2019 9:57 AM EST) Pathologist [facility] Hepatitis C Antibody NEGATIVE Reference Range: Negative [facility] 01/22/2019 9:57 AM EST 01/22/2019 12:12 PM EST Pradip Damico APRN, CNM LAB BLOOD ORDERABLES Fin al Result SUNQUEST from Last 3 Months or Most Recently Relevant to Health Maintenance Insurance [employer] [facility] MEDICAID Care Teams Talent Associate Relationship Specialty Start Date End Date Norma Friedman APRN [address] [place] [address] PCP - General 09/23/24 Lizz Trinh, RN [facility] Registered Nurse Cardiology 09/26/24
--- OUTSIDE RECORDS SUMMARY | 2024-10-13 18:13 | XMS_ITS | Encounter Summary ---
Author Organization [facility] Address [address] [id number] Care Team Providers Care Ham Rolling Machine Operator Name Role Phone Unavailable Primary Care Provider Unavailabl e Encounter Details Date Type Department Care Team (Late st Contact Info) Description 09/17/2024 Telephone Medical Office Building Obstetrics and Gynecology [address], [address] [place] [address] Josefina Shay RN [facility] [address] [place] [address] Social History Tobacco Use Types Packs/Day Years [...] recently had a full Nephrology work-up at [facility] that was negative and was not [...] 10/17/2024 8:30 AM EDT Appointment [facility] Ultrasound [address] [place] [address] 10/17/2024 9:15 AM EDT Routine Medical Office Building Obstetrics and Gynecology [address], [address] [place] [address] Laury Cruz MD [address] [place] [address] 10/24/2024 8:00 AM EDT Office Visit [facility] [place] [address], [address] [place] [address] Nneka Block MD [address] [place] [address] 12/25/2024 1:00 PM EST Office Visit [facility] [place] Nephrology, Bone & Mineral Metabolism [address], [address] [place] [address] documented as of this encounter Visit Diagnoses Not on filedocumented in this encounter
--- OUTSIDE RECORDS SUMMARY | 2024-10-13 18:13 | XMS_ITS | Encounter Summary ---
[facility] Address [address] [place] [id number] Care Team Providers Care Card Game Operator Name Role Phone Elder Norma FERNÁNDEZ Primary Care Provider + [phone] Encounter Details Date Type Department Care Team (Late st Contact Info) Description 07/07/2024 Results Follow-Up [facility] OBGYN [address] [place] [address] [place] [phone] Kelly Delgado APRN [address] [facility] [address] [place] [address] Social History Tobacco Use Types Packs/Day Years Used Date Smoking Tobacco: Never Smokeless Tobacco: Never Alcohol Use Standard Drinks/Week Comments Never 0 (1 standard drink = 0.6 oz pur e alcohol) [facility] Utilities Answer Date Recorded In the past 12 months has [employer], gas, oil, or water [employer] threatened to shut off services in your [...] and heating? Not hard at all 05/28/2024 [facility] - [...] Description 01/20/2025 3:30 PM EST Office Visit [facility] GASTROENTEROLOGY [address] [address] Robbin Escalante MD [address] [address] documented as of this encounter Visit Diagnoses Not on filedocumented in this encounter Additional Health Concerns Assessment Noted Time PHQ-2 Depression Total Score: 2 05/28/19 25 4:39 PM EDT documented as of this encounter Care Teams Card Game Operator Relationship Specialty Start Date End Date Norma Friedman APRN [address] [place] [address] [place] [place]FA[place] APPIAH [address] PCP - General Family Medicine 05/14/24 documented as of this encounter
--- OUTSIDE RECORDS SUMMARY | 2024-10-13 18:13 | XMS_ITS | Encounter Summary ---
Author Organization Healthcare Address [address] [place] [address] Care Team Providers Care Freight Adjuster Name Role Phone Norma Friedman APRN Primary Care Provider [phone] Encounter Details Date Type Department Care Team [...] more drinks on one occasion? Never 09/23/2024 [place] Depression Scale Answer Date Recorded [place] Depression Scale Total 0 09/23/2024 The thought [...] Info) Description 10/17/2024 8:30 AM EDT Appointment [facility] Ultrasound [address] [place] [address] 10/17/2024 9:15 AM EDT Routine Medical Office Building Obstetrics and Gynecology [address] [facility] [place] [address] Laury Cruz MD [address] [facility] [address] [place] [address] 10/24/2024 8:00 AM EDT Office Visit [facility] [place] [address] [facility], [address] [place] [address] Nneka Block MD [address] [place] [address] 12/25/2024 1:00 PM EST Office Visit [facility] [place] [facility], Bone & Mineral Metabolism [address] [facility], [address] [place] [address] documented as of this encounter Visit Diagnoses Not on filedocumented in this encounter Additional Health Concerns Assessment Noted Time A fall risk assessment has been complete d for the patient 09/25/2024 3:05 PM EDT A Body Mass Index follow-up plan has been documented for the patient 10/05/2024 8:54 PM EDT documented as of this encounter Care Teams Freight Adjuster Relationship Specialty Start Date End Date Norma Friedman APRN [address] [place] [address] PCP - General 09/23/24 documented as of this encounter
--- OUTSIDE RECORDS SUMMARY | 2024-10-13 18:13 | XMS_ITS | Encounter Summary ---
Author Organization Healthcare Address [address] [place] [address] Care Team Providers Care Sales Account Specialist Name Role Phone Unavailable Primary Care Provider Unavailabl e Encounter Details Date Type Department Care Team (Late st Contact Info) Description 09/17/2024 Telephone [facility] Nephrology, Bone [facility] Mineral Metabolism [address] [facility], [address] [place] [address] Sherley Gold, FINANCIAL SALES MANAGER GS - 7 MAIN MEDICAL-SURGICAL Social History [...] Info) Description 10/17/2024 8:30 AM EDT Appointment [facility] Ultrasound [address] [place] [address] 10/17/2024 9:15 AM EDT Routine Medical Office Building Obstetrics and Gynecology [address], [address] [place] [address] Laury Cruz MD [address] [place] [address] 10/24/2024 8:00 AM EDT Office Visit [facility] [place] [address] [facility], [address] [place] [address] Nneka Block MD [address] [place] [address] 12/25/2024 1:00 PM EST Office Visit [facility], Bone & Mineral Metabolism [address] [facility], [address] [place] [address] documented as of this encounter Visit Diagnoses Not on filedocumented in this encounter
--- OUTSIDE RECORDS SUMMARY | 2024-10-13 18:13 | XMS_ITS | Encounter Summary ---
Author Organization [employer] ([place], [place], [place], [place]) Address [address] [place] [address] Care Team Providers Care Land Developer Name Role Phone Unavailable Primary Care Provider Unavailabl e Encounter Details Date Type Department Care Team (Late st Contact Info) Description 07/17/2019 Transcribed Document [facility] Family Medicine [address] [place] [address] ProviderEleno MD [address] [place], [place] [address] Social History Tobacco Use Types Packs/Day Years [...] On: 07/17/2019 19:17 EDT by KARLENE MCKINLEY laborer filter plant Process Patient Disposition : AMA/Elope/LWBS KARLENE MCKINLEY [...]
--- OUTSIDE RECORDS SUMMARY | 2024-10-13 18:13 | XMS_ITS | Encounter Summary ---
[facility] Address [address] [place] [address] Care Team Providers Care Slip Bridge Operator Name Role Phone Ivyashlyn Nomra FERNÁNDEZ Primary Care Provider + [phone] Encounter Details Date Type Department Care Team (Late st Contact Info) Description 08/27/2024 Telephone [facility] OBGYN [address] [place] [address] Staci Jain MD [address] [facility] [address] [place] [address] Social History Tobacco Use Types Packs/Day Years Used Date Smoking Tobacco: Never Smokeless Tobacco: Never Alcohol Use Standard Drinks/Week Comments Never 0 (1 standard drink = 0.6 oz pur e alcohol) [facility] Utilities Answer Date Recorded In the past 12 months has [employer], [employer], oil, or water [employer] threatened to shut off services in your [...] at all 05/28/2024 [facility] [place] of Occupat ional Health - Occupational [...] Office Visit [facility] GASTROENTEROLOGY [address] [phone] Robbin Escalante MD [address] [address] documented as of this encounter Visit Diagnoses Diagnosis History of hypokalemia- Primary documented in this encounter Additional Health Concerns Assessment Noted Time PHQ-2 Depression Total Score: 2 05/28/19 25 4:39 PM EDT documented as of this encounter Care Teams Slip Bridge Operator Relationship Specialty Start Date End Date Norma Friedman APRN [address] [place] [place]FA[place] APPIAH [address] PCP - General Family Medicine 05/14/24 documented as of this encounter
[2024-10-13 18:30] VITALS: BP 130/60; PULSE 106; RESP 18; TEMP 36.7; O2SAT 100
[2024-10-13] MEDS: BETAMETHASONE ACET/PHOS 6MG/ML 5ML MDV 12 MG IM (18:40)
== END 2024-10-13 18:42 | disposition home or self-care (01) ==
LOC: OBOUT 18:10
PROVIDERS: PCP Nurse Practitioner Family; Visit Provider Nurse Practitioner Obstetrics & Gynecology
DX: Z34.93 Encounter for supervision of normal pregnancy, unspecified, third trimester (principal); Z51.89 Encounter for other specified aftercare; Z3A.00 Weeks of gestation of pregnancy not specified
CPT/HCPCS: 96372; 99212; G0463; J0702

== ENCOUNTER 2024-10-14 07:22 | Outpatient (CLI) | payer OTHER, SELFPAY ==
--- OUTSIDE RECORDS SUMMARY | 2024-08-19 10:15 | XMS_ITS | Encounter Summary ---
[facility] [address] [place] [address] Care Team Providers Care Dog Daycare Provider Name Role Phone Norma Friedman APRN Primary Care Provider + [phone] Reason for Visit * Reason Comments Routine Visit Encounter Details Date Type Department Care Team (Late st Contact Info) Description 08/19/2024 10:15 AM EDT Routine [facility] [address] [place] [address] Jacey Mathews, COST ESTIMATOR [address] [place] [address] GA: [id number] Social History Tobacco Use Types Packs/Day Years Used Date Smoking Tobacco: Never Smokeless Tobacco: Never Alcohol Use Standard Drinks/Week Comments Never 0 (1 standard drink = 0.6 oz pur e alcohol) [facility] Utilities Answer Date Recorded In the past 12 months has [employer], gas, oil, or water [employer] threatened to shut off services in your [...] heating? Not hard at all 05/28/2024 [facility] [place] [facility] Stress Questionnaire Answer [...] GED or equivalent No 05/28/2024 Preferred Language Kittitian 05/28/2024 PHQ-2 Answer Date Recorded Patient Health [...] this encounter Progress Notes * Jacey Mathews, COST ESTIMATOR - 08/19/2024 10:15 AM EDT Images from [...] 01/20/2025 3:30 PM EST Office Visit [facility] GA[facility] [address] [facility] [address] [place] [address] Robbin Escalante MD [address] [facility] [address] [place] [address] documented as of this encounter Visit Diagnoses Diagnosis Vaginal bleeding in - Primary 25 weeks gestation of documented in this encounter Additional Health Concerns Assessment Noted Time PHQ-2 Depression Total Score: 2 05/28/19 25 4:39 PM EDT documented as of this encounter Care Teams Dog Daycare Provider Relationship Specialty Start Date End Date Norma Friedman APRN [address] [place] G3 [place]FA[place] APPIAH [id number] PCP - General Family Medicine 05/14/24 documented as of this encounter
--- OUTSIDE RECORDS SUMMARY | 2024-08-19 13:59 | XMS_ITS | Encounter Summary ---
[facility] Address [address] [place] [id number] Care Team Providers Care Mds Rn Name Role Phone Ivyashlyn Norma FERNÁNDEZ Primary Care Provider + [phone] Reason for Visit * Reason Comments Vaginal Bleeding * Auth/Cert (Routine) Specialty Diagnoses / Procedures Referred By Contleyla t Referred To Contact Referral ID Status Reason Start Date Expiration Date Visits Re quested Visits Authorized [id number] 1 1 Encounter Details Date Type Department Care Team (Late st Contact Info) Description 08/19/2024 1:59 PM EDT - 08/20/2024 4:28 PM EDT Hospital Encounter [facility] [address] [place] [phone] Rob Wharton MD [address] [facility] [address] [place] [address] Blu Alvarado MD [address] [facility] [address] [place] [address] Dysphagia, unspecified type (Primary Dx) Discharge Disposition: Home or Self Care Social History Tobacco Use Types Packs/Day Years Used Date Smoking Tobacco: Never Smokeless Tobacco: Never Alcohol Use Standard Drinks/Week Comments Never 0 (1 standard drink = 0.6 oz pur e alcohol) [facility] Utilities Answer Date Recorded In the past 12 months has [employer], gas, oil, or water THYME threatened to shut off services in your [...] Not hard at all 05/28/2024 [facility] [place] of Occupat ional Health - Occupational Stress [...] GED or equivalent No 05/28/2024 Preferred Language [place] Zealander 05/28/2024 PHQ-2 Answer Date Recorded Patient Health [...] 1:23 PM EDT Polly Lacey RN * [place] Suicide Severity Rating Scale (Screener/Recent Self-Report) Question [...] through Care Everywhere. * Second Trimester of ([place] Zealander) * Upper Endoscopy Adult Care After ([place]alander) documented in this encounter Medications at Time [...] 08/19/2024 RH Positive 08/19/2024 ABSCRN Negative 08/19/2024 [id number] non-reactive 04/12/2024 HEPCVIRUSABY negative 04/12/2024 URINECX Final [...] IUPC: Resting Tone: Resting Tone by IUPC: [place] Units: Cervix: Exam by: Method: sterile vaginal [...] her third trimesters prior pregnancies(etiology unknown). Patient's exchange trouble shooter is in [facility]. She states has never had [...] IUPC: Resting Tone: Resting Tone by IUPC: [place] Units: Laboratory Results: Lab Results (last 24 [...] AM EDTAssociated Order(s): IP CONSULT TO GASTROENTEROLOGY [facility] Gastroenterology Consult Referring Provider: Dr. Fan/Dr. Wharton [...] expresses concern regarding recent CT scan at [facility] revealing a hiatal hernia. CT scan done prior to most recent due to ovarian cyst and incidentally revealed hiatal hernia. She reports chronic gastrointestinal symptoms. Review of medical record revealed prior GI referral due to blood per rectum. She reports colonoscopy in 2020 at outside facility that revealed diverticulosis and benign colon polyp. She is currently established with provider at [facility] for gastroenterology care she reports repeat [...] await recommendations following EGD - consider DIP PAINTER evaluation if no etiology for difficulty swallowing [...] her third trimesters prior pregnancies(etiology unknown). Patient's exchange trouble shooter is in [facility]. She states has never had [...] IUPC: Resting Tone: Resting Tone by IUPC: [place] Units: Laboratory Results: Lab Results (last 24 [...] Visit [facility] [address] [facility] [phone] Robbin Escalante MD [address] [facility] [address] documented as of this encounter Procedures Procedure [...] NONSTRESS TEST Routine 08/19/2024 4:17 PM EDT [facility] Routine 08/19/2024 3:25 PM EDT [...] EDT) Case Report Surgical Pathology Report Case: [id number] Authorizing Provider: Blu Alvarado MD Collected: 08/20/2024 01:55 PM Ordering Location: [facility] Received: 08/20/2024 02:14 PM ENDO SUITES Pathologist: Khalida Rhoades DO Specimen: Gastric, Antrum, antrum bx for path 08/22/2024 9:18 AM EDT [facility] Clinical Information Dysphagia, unspecified type 08/22/2024 9:18 AM EDT [facility] Final Diagnosis Stomach, antrum, biopsy: 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 pylori is negative (no organisms are identified) Negative for intestinal metaplasia, dysplasia, or malignancy 08/22/2024 9:18 AM EDT [facility] at 0918 EDT Gross Description 1. Gastric, Antrum. Received in formalin labeled antrum biopsy is a 0.4 x 0.2 x 0.2 cm pink-see soft tissue fragment submitted entirely in a single cassette. HDM 08/22/2024 9:18 AM EDT [facility] Microscopic Description The slides are reviewed and demonstrate histopathologic features supporting the above rendered diagnosis. 08/22/2024 9:18 AM EDT [facility] Tissue Pyloric antrum structure / Unknown 08/20/2024 1:55 PM EDT 08/20/2024 2:14 PM EDT us Blu Alvarado MD PATHOLOGY/CYTOLOGY ORDERABLES Final Result [facility]
[address] [place] [address], * Upper GI Endoscopy (08/20/2024 1:09 PM EDT) us Blu Alvarado MD INTERFACE NEEDS Final Result * (ABNORMAL) Basic Metabolic Panel (08/20/2024 5:25 AM EDT) Glucose 84 65 - 99 mg/dL 08/20/2024 6:13 AM EDT [facility] BUN 2.3(L) 6.0 - 20.0 mg/dL 08/20/2024 6:13 AM EDT [facility] Creatinine 0.51(L) 0.57 - 1.00 mg/dL 08/20/2024 6:13 AM EDT [facility] Sodium 139 136 - 145 mmol/L 08/20/2024 6:13 AM EDT [facility] Potassium 3.5 3.5 - 5.2 mmol/L 08/20/2024 6:13 AM EDT [facility] Chloride 109(H) 98 - 107 mmol/L 08/20/2024 6:13 AM EDT [facility] CO2 23.5 22.0 - 29.0 mmol/L 08/20/2024 6:13 AM EDT [facility] Calcium 7.8(L) 8.6 - 10.5 mg/dL 08/20/2024 6:13 AM EDT [facility] BUN/Creatinine Ratio 4.5(L) 7.0 - 25.0 08/20/2024 6:13 AM EDT [facility] Anion Gap 6.5 5.0 - 15.0 mmol/L 08/20/2024 6:13 AM T [facility] eGFR 126.6 >60.0 mL/min/1.7 3 08/20/2024 6:13 AM T [facility] Blood Venipuncture / Unknown [...] ORDERABLES Final Resu lt Performing Organization Address City/[facility]/ZIP Co de Phone Number [facility]
[address] [place] [address], * (ABNORMAL) Potassium (08/19/2024 8:53 PM EDT) Potassium 2.7(L) 3.5 - 5.2 mmol/L 08/19/2024 9:20 PM EDT [facility] Blood Venipuncture / Unknown 08/19/2024 8:53 PM EDT 08/19/2024 9:04 PM EDT Kt Fan DO LAB BLOOD ORDERABLES Final Result Performing Organization Address [facility] Co de Phone Number [facility]
[address] [place] [address], * ABO RH Specimen Verification (08/19/2024 4:34 PM EDT) ABO Type O 08/19/2024 7:39 PM EDT [facility] RH type Positive 08/19/2024 7:39 PM EDT [facility] Blood Venipuncture / Unknown 08/19/2024 4:34 PM EDT 08/19/2024 4:53 PM EDT Rob Wharton MD BLOOD BANK TEST ORDER FRANCO Final Result Performing Organization Address City/[facility]/ZIP Co de Phone Number [facility]
[address] [place] [address], * [facility] (08/19/2024 3:25 PM EDT) Anatomical Region Laterality Modality Ultrasound 08/19/2024 3:09 PM EDT Narrative 08/19/2024 4:54 PM EDT PAT NAME: CAROLE GIRARD MED REC#: [id number] DA: 1990 PAT GEND: F PAT TYPE: E EXAM TRAVIS: [id number] REF PHYS ROB WHARTON Comparison Studies The [...] EFW (oz) 9 oz EFW by: Hadlock ([id number]) Extended Cav. septi pel. tr 4.7 mm Standards Engineer 3.8 mm CM 7.5 mm 84% Nicolaides [...] Heart / Thorax 3-vessel view: Appears normal 5-dznwtf-zptbzea view: Appears normal Stomach: Appears normal Kidneys: [...] in 4wks for growth. Coding ======= Description: 40323-38 Follow Up New Car Get Ready Mechanic: RT Annetta Hartmann , [facility] Physician: Jo Chappell MD Electronically signed by: Jo Chappell MD at: 16:54 Procedure Note Jo Chappell MD - 08/19/2024 PAT NAME: CAROLE GIRARD MED REC#: [id number] DA: 1990 PAT GEND: F PAT TYPE: E EXAM TRAVIS: [id number] REF PHYS ROB WHARTON Comparison Studies The findings of this study are compared to the prior ultrasound studydated 07/22/24 Patient Status Inpatient Indication ======== History of c/s x1. History of . Vaginal bleeding. Maternal Assessment Cwavgn479 cm Height (ft)5 ft Height (in)4 in Vsoqgb26 kg Weight (lb)158 lb BMI27.31 kg/m Method [...] GA25 w + 1 d Assigned DUSTY:12/01/2024 [id number] d Biometry Standard BPD57.6 mm 23w 4d 5% Hadlock OFD81.6 mm 26w 4d 88% Jamal HC225.7 mm 24w 4d 13% Hadlock Cerebellum tr28.9 mm 25w 2d 62% Hill AC194.9 mm 24w 1d 15% Hadlock Femur44.9 mm 24w 6d 27% Hadlock Ywprlye35.3 mm 25w 3d 50% Jamal HC / AC1.16 CKH883 g 24w 2d 16% Hadlock EFW (lb)1 lb EFW (oz)9 oz EFW by:Hadlock ([id number]) Extended Cav. septi pel. tr4.7 mm Vp3.8 mm CM7.5 mm 84% Nicolaides Head / Face / Neck Cephalic index0.71 <1% Nicolaides Extremities / Bony Struc FL / BPD0.78 FL / HC0.20 FL / AC0.23 Other Structures KGS429 bpm General Evaluation Cardiac activity present. FHR [...] normal Heart / Thorax 3-vessel view:Appears normal 1-ktedls-plkargh view:Appears normal Stomach:Appears normal Kidneys:Appears normal Bladder:Appears [...] office in 4wks for growth. Coding ======= Description:38656-99 Follow Up New Car Get Ready Mechanic: RT Annetta Hartmann , RDMS Physician: Jo Chappell MD Electronically signed by: Jo Chappell MD at: 16:54 us Kt Fan DO G US ORDERABLES Final Res ult * Protein / Creatinine Ratio, Urine - Urine, Clean Catch (08/19/2024 3:02 PM EDT) Protein/Creati nine Ratio, Urine 126.1 0.0 - 200.0 mg/G Crea 08/20/2024 12:47 AM EDT [facility] Creatinine, Urine 148.3 mg/dL 08/20/2024 12:47 AM EDT [facility] Total Protein, Urine 18.7 mg/dL 08/20/2024 12:47 AM EDT [facility] Urine Urine specimen obtained by clean catch procedure / Unknown Collection / Unknown 08/19/2024 3:02 PM EDT 08/19/2024 4:26 PM EDT Kt Fan URINE ORDERABLES Final Resu lt [facility]
[address] [place] [address], [place] [phone] * (ABNORMAL) Magnesium (08/19/2024 3:02 PM EDT) Magnesium 1.5(L) 1.6 - 2.6 mg/dL 08/19/2024 5:12 PM EDT [facility] Blood Line / Unknown 08/19/2024 3: 02 PM EDT 08/19/2024 3:10 PM EDT Kt Fan DO LAB BLOOD ORDERABLES Final Result [facility]
[address] [place] [address], [place] [phone] * Urinalysis, Microscopic Only - Urine, Clean Catch (08/19/2024 3:02 PM EDT) RBC, UA 0-2 None Seen, 0-2 /HPF 08/19/2024 3:33 PM EDT [facility] WBC, UA 0-2 None Seen, 0-2 /HPF 08/19/2024 3:33 PM EDT [facility] Bacteria, UA None Seen None Seen /HPF 08/19/2024 3:33 PM EDT [facility] Squamous Epithelial Cells, UA 0-2 None Seen, 0-2 /HPF 08/19/2024 3:33 PM EDT [facility] Hyaline Casts, UA None Seen None Seen /LPF 08/19/2024 3:33 PM EDT [facility] Methodology Automated Microscopy 08/19/2024 3:33 PM EDT [facility] Urine Urine specimen obtained by clean catch procedure / Unknown Collection / Unknown 08/19/2024 3:02 PM EDT 08/19/2024 3:13 PM EDT us Kt Fan DO URINE ORDERABLES Final Resu lt [facility]
[address] [place] [address], * (ABNORMAL) CBC Auto Differential (08/19/2024 3:02 PM EDT) WBC 9.19 3.40 - 10.80 10*3/mm3 08/19/2024 3:23 PM EDT [facility] RBC 3.58(L) 3.77 - 5.28 10*6/mm3 08/19/2024 3:23 PM EDT [facility] Hemoglobin 10.5(L) 12.0 - 15.9 g/dL 08/19/2024 3:23 PM EDT [facility] Hematocrit 31.4(L) 34.0 - 46.6 % 08/19/2024 3:23 PM EDT [facility] MCV 87.7 79.0 - 97.0 fL 08/19/2024 3:23 PM EDT [facility] MCH 29.3 26.6 - 33.0 pg 08/19/2024 3:23 PM EDT [facility] MCHC 33.4 31.5 - 35.7 g/dL 08/19/2024 3:23 PM EDT [facility] RDW 13.4 12.3 - 15.4 % 08/19/2024 3:23 PM EDT [facility] RDW-SD 42.4 37.0 - 54.0 fl 08/19/2024 3:23 PM EDT [facility] MPV 12.0 6.0 - 12.0 fL 08/19/2024 3:23 PM EDT [facility] Platelets 241 140 - 450 10*3/mm3 08/19/2024 3:23 PM EDT [facility] Neutrophil % 66.8 42.7 - 76.0 % 08/19/2024 3:23 PM EDT [facility] Lymphocyte % 24.4 19.6 - 45.3 % 08/[facility]2024 [facility] Monocyte % 7.6 5.0 - 12.0 % 08/19/2024 3:[facility] Eosinophil % 0.7 0.3 - 6.2 % 08/19/2024 3:[facility] Basophil % 0.2 0.0 - 1.5 % 08/19/2024 3:[facility] Immature Grans % 0.3 0.0 - 0.5 % 08/19/2024 3:23 PM [facility] Neutrophils, Absolute 6.14 1.70 - 7.00 10*3/mm3 08/19/2024 3:23 [facility] Lymphocytes, Absolute 2.24 0.70 - 3.10 10*3/mm3 08/19/2024 3:23 PM EDT [facility] Monocytes, Absolute 0.70 0.10 - 0.90 10*3/mm3 08/19/2024 3:23 PM EDT [facility] Eosinophils, Absolute 0.06 0.00 - 0.40 10*3/mm3 08/19/2024 3:23 [facility] Basophils, Absolute 0.02 0.00 - 0.20 10*3/mm3 08/19/2024 3:23 PM EDT [facility] Immature Grans, Absolute 0.03 0.00 - 0.05 10*3/mm3 08/19/2024 3:23 PM EDT [facility] nRBC 0.0 0.0 - 0.2 /100 WBC 08/19/2024 3:23 PM EDT [facility] Blood Line / Unknown 08/19/2024 3: 02 PM EDT 08/19/2024 3:10 PM EDT Kt Fan DO LAB BLOOD ORDERABLES Final Result [facility]
[address] [place] [address], * (ABNORMAL) Urinalysis With Microscopic If Indicated (No Culture) - Urine, Clean Catch (08/19/2024 3:02 PM EDT) Color, UA Yellow Yellow, Straw 08/19/2024 3:33 PM EDT [facility] Appearance, UA Clear Clear 08/19/2024 3:33 PM EDT [facility] pH, UA >=9.0(H) 5.0 - 8.0 08/19/2024 3:33 PM EDT [facility] Specific Eloy, UA 1.018 1.005 - 1.030 08/19/2024 3:33 PM EDT [facility] Glucose, UA Negative Negative 08/19/2024 3:33 PM EDT [facility] Ketones, UA 15 mg/dL (1+)(A) Negative 08/19/2024 3:33 PM EDT [facility] Bilirubin, UA Negative Negative 08/19/2024 3:33 PM EDT [facility] Blood, UA Negative Negative 08/19/2024 3:33 PM EDT [facility] Protein, UA 30 mg/dL (1+)(A) Negative 08/19/2024 3:33 PM EDT [facility] Leuk Esterase, UA Negative Negative 08/19/2024 3:33 PM EDT [facility] Nitrite, UA Negative Negative 08/19/2024 3:33 PM EDT [facility] Urobilinogen, UA 1.0 E.U./dL 0.2 - 1.0 E.U./dL 08/19/2024 3:33 PM EDT [facility] Urine Urine specimen obtained by clean catch procedure / Unknown Collection / Unknown 08/19/2024 3:02 PM EDT 08/19/2024 3:13 PM EDT us Kt Fan DO URINE ORDERABLES Final Resu lt Performing Organization Address City/[facility]/ZIP Co de Phone Number [facility]
[address] [place] [address], [place] [phone] * Amylase (08/19/2024 3:02 PM EDT) Amylase 73 28 - 100 U/L 08/19/2024 3:36 PM EDT [facility] Blood Line / Unknown 08/19/2024 3: 02 PM EDT 08/19/2024 3:10 PM EDT us Kt Fan DO LAB BLOOD ORDERABLES Final Result Performing Organization Address [facility] Co de Phone Number [facility]
[address] [place] [address], [place] [phone] * Lipase (08/19/2024 3:02 PM EDT) Lipase 13 13 - 60 U/L 08/19/2024 3:36 PM EDT [facility] Blood Line / Unknown 08/19/2024 3: 02 PM EDT 08/19/2024 3:10 PM EDT us Kt Fan DO LAB BLOOD ORDERABLES Final Result Performing Organization Address City/[facility]/ZIP Co de Phone Number [facility]
[address] [place] [address], * (ABNORMAL) Comprehensive Metabolic Panel (08/19/2024 3:02 PM EDT) [facility] Glucose 75 65 - 99 mg/dL 08/19/2024 3:38 PM EDT [facility] BUN 3.6(L) 6.0 - 20.0 mg/dL 08/19/2024 3:38 PM EDT [facility] Creatinine 0.51(L) 0.57 - 1.00 mg/dL 08/19/2024 3:38 PM EDT [facility] Sodium 137 136 - 145 mmol/L 08/19/2024 3:38 PM EDT [facility] Potassium 2.6(LL) 3.5 - 5.2 mmol/L 08/19/2024 3:38 PM EDT [facility] Comment:Specimen hemolyzed. Result may be falsely elevated. Chloride 99 98 - 107 mmol/L 08/19/2024 3:38 PM EDT [facility] CO2 24.2 22.0 - 29.0 mmol/L 08/19/2024 3:38 PM EDT [facility] Calcium 8.8 8.6 - 10.5 mg/dL 08/19/2024 3:38 PM EDT [facility] Total Protein 6.6 6.0 - 8.5 g/dL 08/19/2024 3:38 PM EDT [facility] Albumin 3.4(L) 3.5 - 5.2 g/dL 08/19/2024 3:38 PM EDT [facility] ALT (SGPT) 10 1 - 33 U/L 08/19/2024 3:38 PM EDT [facility] AST (SGOT) 22 1 - 32 U/L 08/19/2024 3:38 PM EDT [facility] Alkaline Phosphatase 64 39 - 117 U/L 08/19/2024 3:38 PM EDT [facility] Total Bilirubin 0.5 0.0 - 1.2 mg/dL 08/19/2024 3:38 PM EDT [facility] Globulin 3.2 gm/dL 08/19/2024 3:38 PM EDT [facility] Comment:Calculated Result A/G Ratio 1.1 g/dL 08/19/2024 3:38 PM EDT [facility] BUN/Creatinine Ratio 7.1 7.0 - 25.0 08/19/2024 3:38 PM EDT [facility] Anion Gap 13.8 5.0 - 15.0 mmol/L 08/19/2024 3:38 PM EDT [facility] eGFR 126.6 >60.0 mL/min/1.7 3 08/19/2024 3:38 PM EDT [facility] Blood Line / Unknown 08/19/2024 3: 02 PM EDT 08/19/2024 3:10 PM EDT Narrative [facility] - 08/19/2024 3:38 PM [...] Fan DO LAB BLOOD ORDERABLES Final Result [facility]
[address] [place] [address], * Type & Screen (08/19/2024 3:02 PM EDT) ABO Type O 08/19/2024 3:51 PM EDT [facility] RH type Positive 08/19/2024 3:51 PM EDT [facility] Antibody Screen Negative 08/19/2024 3:51 PM EDT [facility] T&S Expiration Date 08/22/2024 11:59:59 PM 08/19/2024 3:51 PM EDT [facility] Blood Line / Unknown 08/19/2024 3: 02 PM EDT 08/19/2024 3:15 PM EDT Kt Fan DO BLOOD BANK TEST ORDERABLES Edited Result - Final [facility]
[address] [place] [address], documented in this encounter Visit Diagnoses Diagnosis [...] documented as of this encounter Care Teams Mds Rn Relationship Specialty Start Date End Date Norma Friedman APRN [address] [place] G3 RAFAELA APPIAH [id number] PCP - General Family Medicine 05/14/24 documented as of this encounter
--- OUTSIDE RECORDS SUMMARY | 2024-08-20 13:33 | XMS_ITS | Encounter Summary ---
[facility] Address [address] [place] [address] Care Team Providers Care Ice Skating Coach Name Role Phone Norma Friedman APRN Primary Care Provider + [phone] Reason for Visit * Reason Comments Vaginal Bleeding * Auth/Cert (Routine) Specialty Diagnoses / Procedures Referred By Tarik t Referred To Contact Referral ID Status Reason Start Date Expiration Date Visits Re quested Visits Authorized [id number] 1 1 Encounter Details Date Type Department Care Team (Late st Contact Info) Description 08/20/2024 1:33 PM EDT - 08/20/2024 2:05 PM EDT Surgery [facility] [address] [place] [address] Blu Alvarado MD [address] [facility] [address] [place] [address] ESOPHAGOGASTRODUODENOSCOPY [38613 (CPT )] Social History Tobacco Use Types Packs/Day Years Used Date Smoking Tobacco: Never Smokeless Tobacco: Never Alcohol Use Standard Drinks/Week Comments Never 0 (1 standard drink = 0.6 oz pur e alcohol) [facility] Utilities Answer Date Recorded In the past [...] and heating? Not hard at all 05/28/2024 [facility] - Occupational Stress Questionnaire Answer Date [...] equivalent No 05/28/2024 Preferred Language Citizen Of [place] 05/28/2024 PHQ-2 Answer Date Recorded Patient Health [...] 1:23 PM EDT Polly Lacey RN * [facility] Suicide Severity Rating Scale (Screener/Recent Self-Report) Question [...] [facility] Results Pending at Discharge Pending Labs Order Current Status Tissue Pathology Exam In process Rob Wharton MD 08/20/24 15:36 EDT Time: Discharge <30 min documented in this encounter Discharge Instructions * Attachments The following attachments cannot be sent through Care Everywhere. * Second Trimester of (Citizen Of [place]) * Upper Endoscopy Adult Care After (Citizen Of [place]) documented in this encounter Medications at Time [...] 08/19/2024 RH Positive 08/19/2024 ABSCRN Negative 08/19/2024 [id number] non-reactive 04/12/2024 HEPCVIRUSABY negative 04/12/2024 URINECX Final [...] IUPC: Resting Tone: Resting Tone by IUPC: [place]: Cervix: Exam by: Method: sterile vaginal [...] from the original note were not included. [facility] Obstetric History and Physical Referring [...] her third trimesters prior pregnancies(etiology unknown). 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 She states has never had [...] IUPC: Resting Tone: Resting Tone by IUPC: [place]: Laboratory Results: Lab Results (last 24 [...] expresses concern regarding recent CT scan at [facility] revealing a hiatal hernia. CT scan done prior to most recent due to ovarian cyst and incidentally revealed hiatal hernia. She reports chronic gastrointestinal symptoms. Review of medical record revealed prior GI referral due to blood per rectum. She reports colonoscopy in 2020 at outside facility that revealed diverticulosis and benign colon polyp. She is currently established with provider at [facility] for gastroenterology care she reports repeat [...] , await recommendations following EGD - consider ANODE WORKER evaluation if no etiology for difficulty swallowing [...] from the original note were not included. [facility] Obstetric History and Physical Referring [...] her third trimesters prior pregnancies(etiology unknown). 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 She states has never had [...] IUPC: Resting Tone: Resting Tone by IUPC: [place]: Laboratory Results: Lab Results (last 24 [...] Description 01/20/2025 3:30 PM EST Office Visit [facility] GASTRO[facility]OLOGY [address] [address] Robbin Escalante MD [address] [address] documented as of this encounter Procedures Procedure Name Priority Date/Time Associated Diagnosis Comments TISSUE PATHOLOGY EXAM Routine 08/20/2024 1:55 PM EDT Dysphagia, unspecified type TN ESOPHAGOGASTRODUODENOSCOP Y TRANSORAL DIAGNOSTIC 08/20/2024 1:44 PM EDT Dysphagia, unspecified type UPPER GI ENDOSCOPY 08/20/2024 1:09 PM EDT BASIC METABOLIC PANEL STAT 08/20/2024 5:25 AM EDT POTASSIUM STAT 08/19/2024 8:53 PM EDT ABORH 2ND SPECIMEN VERIFICATION STAT 08/19/2024 4:34 PM EDT NONSTRESS TEST Routine 08/19/2024 4:17 PM EDT [facility] Routine 08/19/2024 3:25 [...] EDT) Case Report Surgical Pathology Report Case: [id number] Authorizing Provider: Blu Alvarado MD Collected: 08/20/2024 [...] Final Result [facility]
[address] [place] [address], * Upper GI Endoscopy (08/20/2024 1:09 PM EDT) us Blu Alvarado MD INTERFACE NEEDS Final Result * (ABNORMAL) Basic Metabolic Panel (08/20/2024 5:25 AM EDT) Glucose 84 65 - 99 mg/dL 08/20/2024 6:13 AM EDT [facility] BUN 2.3(L) 6.0 - 20.0 mg/dL 08/20/2024 6:13 AM T [facility] Creatinine 0.51(L) 0.57 - 1.00 mg/dL 08/20/2024 6:13 AM [facility] Sodium 139 136 - 145 mmol/L 08/20/2024 6:13 AM EDT [facility] Potassium 3.5 3.5 - 5.2 mmol/L 08/20/2024 6:13 AM EDT [facility] Chloride 109(H) 98 - 107 mmol/L 08/20/2024 6:13 AM [facility] CO2 23.5 22.0 - 29.0 mmol/L 08/20/2024 6:13 AM [facility] Calcium 7.8(L) 8.6 - 10.5 mg/dL 08/20/2024 6:13 AM [facility] BUN/Creatinine Ratio 4.5(L) 7.0 - 25.0 08/20/2024 6:13 AM [facility] Anion Gap 6.5 5.0 - 15.0 mmol/L 08/20/2024 6:13 AM [facility] eGFR 126.6 >60.0 mL/min/1.7 3 08/20/2024 6:13 AM [facility] Blood Venipuncture / Unknown 08/20/2024 5:25 [...] ORDERABLES Final Resu lt Performing Organization Address City/[facility]/ZIP Co de Phone Number [facility]
[address] [place] [address], * (ABNORMAL) Potassium (08/19/2024 8:53 PM EDT) Potassium 2.7(L) 3.5 - 5.2 mmol/L 08/19/2024 9:20 PM EDT [facility] Blood Venipuncture / Unknown 08/19/2024 8:53 PM EDT 08/19/2024 9:04 PM EDT Kt Fan DO LAB BLOOD ORDERABLES Final Result Performing Organization Address [facility] Co de Phone Number [facility]
[address] [place] [address], * ABO RH Specimen Verification (08/19/2024 4:34 PM EDT) ABO Type O 08/19/2024 7:39 PM EDT [facility] RH type Positive 08/19/2024 7:39 PM EDT [facility] Blood Venipuncture / Unknown 08/19/2024 4:34 PM EDT 08/19/2024 4:53 PM EDT Rob Wharton MD BLOOD BANK TEST ORDER FRANCO Final Result Performing Organization Address City/[facility]/ZIP Co de Phone Number [facility]
[address] [place] [address], * [facility] (08/19/2024 3:25 PM EDT) Anatomical Region Laterality Modality Ultrasound 08/19/2024 3:09 PM EDT Narrative 08/19/2024 4:54 PM EDT PAT NAME: CAROLE GIRARD MED REC#: [id number] DA: 1990 PAT GEND: F PAT TYPE: E EXAM TRAVIS: [id number] REF PHYS ROB WHARTON Comparison Studies The [...] EFW (oz) 9 oz EFW by: Hadlock ([id number]) Extended Cav. septi pel. tr 4.7 mm Merchandising Internship 3.8 mm CM 7.5 mm 84% Nicolaides [...] Heart / Thorax 3-vessel view: Appears normal 5-pahfzg-noqikun view: Appears normal Stomach: Appears normal Kidneys: [...] in 4wks for growth. Coding ======= Description: 46072-07 Follow Up Business Services Manager: Alison Verduzco RT R , [place] Physician: Jo Chappell MD Electronically signed by: Jo Chappell MD at: 16:54 Procedure Note Jo Chappell MD - 08/19/2024 PAT NAME: CAROLE GIRARD MED REC#: [id number] DA: [id number] PAT GEND: F PAT TYPE: E EXAM TRAVIS: [id number] REF PHYS ROB WHARTON Comparison Studies The findings of this study are compared to the prior ultrasound studydated 07/22/24 Patient Status Inpatient Indication ======== History of c/s x1. History of . Vaginal bleeding. Maternal Assessment Hxkpey067 cm Height (ft)5 ft Height (in)4 in Rlvsfi72 kg Weight (lb)158 lb BMI27.31 kg/m Method ======= Transabdominal ultrasound examination. View: Limited by patient bodyhabitus ========= Love . Number of fetuses: 1 Dating ====== Method of dating:based on stated DUSTY GA by prior [id number] w + 1 d DUSTY by prior assessment:12/01/2024 Ultrasound examination on:08/19/2024 GA by U/S based upon:AC, BPD, Femur, HC GA by U/S24 w + 2 d DUSTY by U/S:12/07/2024 Previous dating:based on stated DUSTY, selected on 07/22/2024 Agreed DUSTY of previous datin12/01/2024 Assigned:based on stated DUSTY, selected on 08/19/2024 Assigned GA25 w + 1 d Assigned DUSTY:12/01/2024 [id number] d Biometry Standard BPD57.6 mm 23w 4d 5% Hadlock OFD81.6 mm 26w 4d 88% Jamal HC225.7 mm 24w 4d 13% Hadlock Cerebellum tr28.9 mm 25w 2d 62% Hill AC194.9 mm 24w 1d 15% Hadlock Femur44.9 mm 24w 6d 27% Hadlock Zkmropx34.3 mm 25w 3d 50% Jamal HC / AC1.16 DGJ357 g 24w 2d 16% Hadlock EFW (lb)1 lb EFW (oz)9 oz EFW by:Hadlock ([id number]) Extended Cav. septi pel. tr4.7 mm Vp3.8 mm CM7.5 mm 84% Nicolaides Head / Face / Neck Cephalic index0.71 <1% Nicolaides Extremities / Bony Struc FL / BPD0.78 FL / HC0.20 FL / AC0.23 Other Structures SWY171 bpm General Evaluation Cardiac activity present. FHR [...] normal Heart / Thorax 3-vessel view:Appears normal 4-lhdxnh-dghwogv view:Appears normal Stomach:Appears normal Kidneys:Appears normal Bladder:Appears [...] office in 4wks for growth. Coding ======= Description:90829-11 Follow Up Business Services Manager: RT Annetta Hartmann , [facility] Physician: Jo Chappell MD Electronically signed by: Jo Chappell MD at: 16:54 us Kt Fan DO [facility] [place] [place] US ORDERABLES Final Res ult * Protein / Creatinine Ratio, Urine - Urine, Clean Catch (08/19/2024 3:02 PM EDT) Protein/Creati nine Ratio, Urine 126.1 0.0 - 200.0 mg/G Crea 08/20/2024 12:47 AM EDT [facility] Creatinine, Urine 148.3 mg/dL 08/20/2024 12:47 AM EDT [facility] Total Protein, Urine 18.7 mg/dL 08/20/2024 12:47 AM EDT [facility] Urine Urine specimen obtained by clean catch procedure / Unknown Collection / Unknown 08/19/2024 3:02 PM EDT 08/19/2024 4:26 PM EDT Kt Fan DO URINE ORDERABLES Final Resu lt [facility]
[address] [place] [address], [place] [phone] * (ABNORMAL) Magnesium (08/19/2024 3:02 PM EDT) Magnesium 1.5(L) 1.6 - 2.6 mg/dL 08/19/2024 5:12 PM EDT [facility] Blood Line / Unknown 08/19/2024 3: 02 PM EDT 08/19/2024 3:10 PM EDT Kt Fan DO LAB BLOOD ORDERABLES Final Result Performing Organization Address City/[facility]/ZIP Co de Phone Number [facility]
[address] [place] [address], [place] [phone] * Urinalysis, Microscopic Only - Urine, Clean [...] lt [facility]
[address] [place] [address], * (ABNORMAL) CBC Auto Differential (08/19/2024 3:02 [...] Result [facility]
[address] [place] [address], * (ABNORMAL) Urinalysis With Microscopic If Indicated (No Culture) - Urine, Clean Catch (08/19/2024 3:02 PM EDT) Color, UA Yellow Yellow, Straw 08/19/2024 3:33 PM EDT [facility] Appearance, UA Clear Clear 08/19/2024 3:33 PM EDT [facility] pH, UA >=9.0(H) 5.0 - 8.0 08/19/2024 3:33 PM EDT [facility] Specific Axis, UA 1.018 1.005 - 1.030 08/19/2024 3:33 [...] lt [facility]
[address] [place] [address], [place] [phone] * Amylase (08/19/2024 3:02 PM EDT) Amylase 73 28 - 100 U/L 08/19/2024 3:36 PM EDT [facility] Blood Line / Unknown 08/19/2024 3: 02 PM EDT 08/19/2024 3:10 PM EDT us Kt Fan DO LAB BLOOD ORDERABLES Final Result Performing Organization Address [facility] Co de Phone Number [facility]
[address] [place] [address], [place] [phone] * Lipase (08/19/2024 3:02 PM EDT) Lipase 13 13 - 60 U/L 08/19/2024 3:36 PM EDT [facility] Blood Line / Unknown 08/19/2024 3: 02 PM EDT 08/19/2024 3:10 PM EDT us Kt Fan DO LAB BLOOD ORDERABLES Final Result Performing Organization Address City/[facility]/ZIP Co de Phone Number [facility]
[address] [place] [address], [place] [phone] * (ABNORMAL) Comprehensive Metabolic Panel (08/19/2024 3:02 PM EDT) Glucose 75 65 - 99 mg/dL 08/19/2024 3:38 PM EDT [facility] BUN 3.6(L) 6.0 - 20.0 mg/dL 08/19/2024 3:38 PM T [facility] Creatinine 0.51(L) 0.57 - 1.00 mg/dL 08/19/2024 3:38 PM EDT [facility] Sodium 137 136 - 145 mmol/L 08/19/2024 3:38 PM T [facility] Potassium 2.6(LL) 3.5 - 5.2 mmol/L 08/19/2024 3:38 PM [facility] Comment:Specimen hemolyzed. Result may be falsely elevated. Chloride 99 98 - 107 mmol/L 08/19/2024 3:38 PM [facility] CO2 24.2 22.0 - 29.0 mmol/L 08/19/2024 3:38 PM T [facility] Calcium 8.8 8.6 - 10.5 mg/dL 08/19/2024 3:38 PM T [facility] Total Protein 6.6 6.0 - 8.5 g/dL 08/19/2024 3:38 PM [facility] Albumin 3.4(L) 3.5 - 5.2 g/dL 08/19/2024 3:38 PM [facility] ALT (SGPT) 10 1 - 33 U/L 08/19/2024 3:38 PM T [facility] AST (SGOT) 22 1 - 32 U/L 08/19/2024 3:38 PM T [facility] Alkaline Phosphatase 64 39 - 117 U/L 08/19/2024 3:38 PM [facility] Total Bilirubin 0.5 0.0 - 1.2 mg/dL 08/19/2024 3:38 PM T [facility] Globulin 3.2 gm/dL 08/19/2024 3:38 PM T [facility] Comment:Calculated Result A/G Ratio 1.1 g/dL 08/19/2024 3:38 PM EDT [facility] BUN/Creatinine [...] Final Result [facility]
[address] [place] [address], * Type & Screen (08/19/2024 3:02 PM EDT) ABO Type O 08/19/2024 3:51 PM EDT [facility] RH type Positive 08/19/2024 3:51 PM EDT [facility] Antibody Screen Negative 08/19/2024 3:51 PM EDT [facility] T&S Expiration Date 08/22/2024 11:59:59 PM 08/19/2024 3:51 PM EDT [facility] Blood Line / Unknown 08/19/2024 3: 02 PM EDT 08/19/2024 3:15 PM EDT Kt Fan DO BLOOD BANK TEST ORDERABLES Edited Result - Final [facility]
[address] [place] [address], documented in this encounter Visit Diagnoses Diagnosis [...] BPA Driven Protocol Open Order & [facility] Electrolyte Replacement Protocol Algorithm [...] documented as of this encounter Care Teams Ice Skating Coach Relationship Specialty Start Date End Date Norma Friedman APRN [address] [place] G3 RAFAELA APPIAH [address] PCP - General Family Medicine 05/14/24 documented as of this encounter
--- OUTSIDE RECORDS SUMMARY | 2024-08-20 13:44 | XMS_ITS | Encounter Summary ---
[facility] Address [address] [place] [id number] Care Team Providers Care Automotive Salesperson Name Role Phone IvyKade goldbergdev FERNÁNDEZ Primary Care Provider + [phone] Reason for Visit * Auth/Cert (Routine) Specialty Diagnoses / Procedures Referred By Contac t Referred To Contact Referral ID Status Reason Start Date Expiration Date Visits Re quested Visits Authorized 1 1 Encounter Details Date Type Department Care Team (Late st Contact Info) Description 08/20/2024 1:44 PM EDT Anest[facility] Event [facility] [address] [place] [address] Akash Anguiano MD [address] [place] [address] Liborio Peralta CRNA [address] [place] [address] Anesthesia Record Procedure Summary Procedure Name Responsible [...] drink = 0.6 oz pur e alcohol) [facility] Utilities Answer Date Recorded In the [...] and heating? Not hard at all 05/28/2024 [facility] [place] of Occupat ional Health - Occupational Stress [...] 1:23 PM EDT Polly Lacey RN * [place] Suicide Severity Rating Scale (Screener/Recent Self-Report) Question Answer Date of Assessment Author 6. Suicidal Behavior (Lifetime) No 1:23 PM EDT Polly Cabrera RN documented as of this encounter OR Notes * Anesthesia Postprocedure Evaluation - Liborio Peralta CRNA - 08/20/2024 2:18 PM EDT Patient: Whitney Presley Procedure Summary Date: 08/20/24 Room / Location: [facility] Anesthesia Start: [...] sounds: normal. Substance History - negative use PROTOZOOLOGIST (+) (25 wks, FHT 147) Other Anesthesia Plan ASA 2 general Rapid sequence intravenous induction Anesthetic plan, risks, benefits, and alternatives have been provided, discussed and informed consent has been obtained with: patient. Plan discussed with CYBER ENGINEER. CODE STATUS: documented in this encounter Plan of Treatment Upcoming Encounters Date Type Department Care Team (Late st Contact Info) Description 01/20/2025 3:30 PM EST Office Visit [facility] [address] [facility] [address] Robbin Escalante MD [address] [address] documented as of this encounter Procedures Procedure [...] and Staff Patient location during procedure: [place] CYBER ENGINEER/CAA: Junior Zbigniew Jain, DAYNE Indications and Patient [...] documented as of this encounter Care Teams Automotive Salesperson Relationship Specialty Start Date End Date Norma Friedman APRN [address] [place] [address] [place] APPIAH [id number] PCP - General Family Medicine 05/14/24 documented as of this encounter
--- OUTSIDE RECORDS SUMMARY | 2024-08-29 10:00 | XMS_ITS | Encounter Summary ---
Author Organization [facility] Address [address] [place] [address] Care Team Providers Care Professional Bass Fisherman Name Role Phone IvyKade goldbergjoseseven JOLENE Primary Care Provider + [phone] Reason for Visit * Reason Comments Problem Encounter Details Date Type Department Care Team (Late st Contact Info) Description 08/29/2024 10:00 AM EDT Routine [facility] OBGYN [address] [place] [address] Staci Jain MD [address] [place] [address] [place]: 26w4d Social History Tobacco Use Types Packs/Day Years Used Date Smoking Tobacco: Never Smokeless Tobacco: Never Alcohol Use Standard Drinks/Week Comments Never 0 (1 standard drink = 0.6 oz pur e alcohol) [facility] Utilities Answer Date Recorded In the past 12 months has [employer], gas, oil, or water [employer] threatened to shut off services in your [...] and heating? Not hard at all 05/28/2024 [facility] Health - Occupational Stress Questionnaire Answer [...] GED or equivalent No 05/28/2024 Preferred Language Ethiopian 05/28/2024 PHQ-2 Answer Date Recorded Patient Health [...] Office Visit [facility] GASTROENTEROLOGY [address] [address] Robbin Escalante MD [address] [address] documented as of this encounter Procedures Procedure [...] 08/30/2024 6:09 AM EDT Performed at: [address] [id number] Construction Cost Estimator: Kevin Harman MD, Phone: [phone] Patient Fasting: N us Staci Jain MD LAB BLOOD ORDERABLES Final Result [facility] (AM[facility]ULATORY) [address] [place] [address], [facility] [address] [place] [address], * (ABNORMAL) Comprehensive Metabolic Panel (08/29/2024 11:05 [...] 11:0 5 AM EDT 08/29/2024 Narrative [facility] (AMBULATORY) - 08/30/2024 6:09 AM EDT Performed at: 01 - [place] [address] [address] [place], [place] [id number] Construction Cost Estimator: Kevin Harman MD, Phone: [phone] Patient Fasting: N Staci Jain MD LAB BLOOD ORDERABLES Final Result Performing Organization Address City/[facility]/ZIP Co de Phone Number [facility] ([facility]) [address] [place] [address], [place] [phone] [facility] [address] [place] [address], [place] [phone] * (ABNORMAL) POC Urinalysis Dipstick (08/29/2024 10:13 AM EDT) Glucose, UA Negative Negative mg/dL [facility] Protein, POC Trace(A) Negative mg/dL [facility] Urine 08/29/2024 10:1 3 AM EDT us Staci Jain MD POINT OF CARE TEST OR DERABLES Final Result Performing Organization Address City/[facility]/ZIP Co de Phone Number [facility]
[address] [place] [address], documented in this encounter Visit Diagnoses Diagnosis [...] documented as of this encounter Care Teams Professional Bass Fisherman Relationship Specialty Start Date End Date Norma Friedman APRN [address] [place] G[address] RAFAELA APPIAH [address] PCP - General Family Medicine 05/14/24 documented as of this encounter
--- OUTSIDE RECORDS SUMMARY | 2024-09-23 10:00 | XMS_ITS | Encounter Summary ---
Author Organization [facility] Address [address] [place] [address] Care Team Providers Care Nanoscience Technician Name Role Phone Norma Friedman JOLENE Primary Care Provider +1- [phone] Reason for Referral * Consultation (Routine) - Closed Specialty Diagnoses / Procedures Referred By Contac t Referred To Contact Cardiology Diagnoses Supervision of high risk , antepartum Cardiac arrhythmia, unspecified cardiac arrhythmia type Liborio Weller MD [address] [facility] [address] [place] [address] Phone: tel: fax: Referral ID Status Reason Start Date Expiration Date V isits Requested Visits Authorized [id number] Closed Specialty Services Required 09/23/2024 03/25/2026 1 1 Encounter Details Date Type Department Care Team ([facility] st Contact Info) Description 09/23/2024 10:00 AM EDT Office Visit Medical Office Building Obstetrics and Gynecology [address] [facility], [address] [place] [address] Liborio Weller MD [address] [facility] [address] [place] [address] Supervision of high risk , [...] more drinks on one occasion? Never 09/23/2024 [place] Depression Scale Answer Date Recorded [place] Depression Scale Total 0 09/23/2024 The thought [...] on one occasion? Never 09/23/2024 10:39 AM EDHailey Conteh documented as of this encounter Miscellaneous Notes [...] last week on 09/19. She presented to [facility] for chest pain and palpitations. She has [...] 09/25 and has otherwise never seen a geometrician. She has never seen a plant scientist. She also reports during this admission she [...] None N JAGDISH Complications: Potassium (K) deficiency [place] Depression Scale Total: 0 Gynecology History No [...] has a past surgical history that includes [place] tooth extraction (N/A); section, low transverse (N/A); [...] prescription(s): ferosul, potassium chloride cr, prenat mv-min w/av-ukgfhv-kkf, and thiamine. Allergies Allergies[1] Review of Systems [...] Had tachycardia and arrhythmia during admission to [facility] on 09/19 HR to 170s-180s with [...] other day Has never been evaluated by geometrician for salt wasting nephropathy PLAN Has nephrology [...] the patient, and documenting this visit. (Est [id number]) Brandee Pringle MD Obstetrics & Gynecology, PGY-2 [...] Care Team (Late st Contact Info) Description 10/17/2024 8:30 AM EDT Appointment [facility] Ultrasound [address] [place] [address] 10/17/2024 9:15 AM EDT Routine Medical Office Building Obstetrics and Gynecology [address] [facility], [address] [place] [address] Laury Cruz MD [address] [place] [address] 10/24/2024 8:00 AM EDT Office Visit [facility] [place] [address] [facility], [address] [place] [address] Nneka Block MD [address] [place] [address] 12/25/2024 1:00 PM EST Office Visit [facility] Nephrology, Bone & Mineral Metabolism [address] [facility], [address] [place] [address] Scheduled Referrals Name Type Priority [...] Ketones, Urine 40(A) Negative mg/dL POCT Specific [place], Urine 1.015 POCT Blood, Urine Negative Negative POCT pH, Urine >=9.0(A) 5.0 to 8.0 POCT Protein, Urine 100(A) Negative mg/dL POCT Urobilinogen, Urine 0.2 0.2, 1 E.U./dL POCT Nitrite, Urine Negative Negative POCT Leukocyte Esterase, Urine Negative Negative Test Strip Lot Number [id number] Test Strip Lot Expiration 07/2025 Urine Urine [...] documented as of this encounter Care Teams Nanoscience Technician Relationship Specialty Start Date End Date Norma Friedman APRN [address] [place] [address] PCP - General 09/23/24 documented as of this encounter
--- OUTSIDE RECORDS SUMMARY | 2024-09-25 14:20 | XMS_ITS | Encounter Summary ---
Author Organization Healthcare Address [address] [place] [address] Care Team Providers Care Cold Roll Packer Sheet Iron Name Role Phone Norma Friedman JOLENE Primary Care Provider [phone]- [phone] Reason for Referral * Consultation (Routine) - Authorized Specialty Diagnoses / Procedures Referred By Tarik pedersen Referred To Contact Diagnoses Hypokalemia Bill Patrick MD [address] [place] [phone] Phone: tel: fax: Referral ID Status Reason Start Date Expiration Date V isits Requested Visits Authorized [id number] Authorized 09/25/2024 03/27/2026 1 1 * Imaging (Routine) - Authorized Specialty Diagnoses / Procedures Referred By Tarik pedersen Referred To Contact Radiology Diagnoses Hypokalemia Procedures US Renal Complete Bill Patrick MD [address] [place] [phone] Phone: tel: fax: Referral ID Status Reason Start Date Expiration Date V isits Requested Visits Authorized [id number] Authorized 09/25/2024 03/27/2026 1 1 Reason for Visit * Reason Comments Consult * Consultation (Routine) - Closed Specialty Diagnoses / Procedures Referred By Tarik pedersen Referred To Contact Nephrology Diagnoses Hypokalemia Liborio Weller MD [address] [address] Phone: tel: fax: [facility] Nephrology, Bone & Mineral Metabolism [address] , [address] [place] [address] Phone: tel: fax: Referral ID Status Reason Start Date Expiration Date V isits Requested Visits Authorized [id number] Closed Specialty Services Required 09/14/2024 03/16/2026 1 1 Encounter Details Date Type Department Care Team (Late st Contact Info) Description 09/25/2024 2:20 PM EDT Office Visit [facility] Nephrology, Bone & Mineral Metabolism [address] , [address] [place] [address] Bill Patrick MD [address] [place] [address] Hypokalemia (Primary Dx) Social History [...] more drinks on one occasion? Never 09/23/2024 [place] Depression Scale Answer Date Recorded [place] Depression Scale Total 0 09/23/2024 The thought [...] 37 weeks andshe did not see a Pharmaceutical Scientist at that time. Also notes she has [...] Date SECTION, LOW TRANSVERSE N/A section from [facility] DILATION AND CURETTAGE OF UTERUS N/A Dilation and curettage from [facility] WISDOM TOOTH EXTRACTION N/A Oral Surgery Tooth Extraction [place] Tooth from [facility] [3] Family History Problem Relation Name Age [...] mouth 3 times a day.) Prenat MV-Min w/Ki-Tchevc-NHN ( COMPLETE PO) thiamine (Vitamin B-1) 100 [...] Info) Description 10/17/2024 8:30 AM EDT Appointment [facility] Ultrasound [address] [place] [address] 10/17/2024 9:15 AM EDT Routine Medical Office Building Obstetrics and Gynecology [address], [address] [place] [address] Laury Cruz MD [address] [place] [address] 10/24/2024 8:00 AM EDT Office Visit [facility] [place] [address], [address] [place] [address] Nneka Block MD [address] [place] [address] 12/25/2024 1:00 PM EST Office Visit Professional [facility] Nephrology, Bone & Mineral Metabolism [address], [address] [place] [address] Scheduled Orders Name Type Priority [...] Chloride, Urine 25 mmol/L 2:03 PM EDT [facility] Urine Urine specimen obtained by clean catch procedure / Unknown Non-blood Collection / Unknown 09/26/2024 10:07 AM EDT 09/26/2024 10:07 AM EDT us Bill Patrick MD LAB URINE ORDERABLES Final Resul t [facility] [address] [place] [address] * Protein, Random, Urine with Creatinine (09/26/2024 10:03 AM EDT) Protein, Urine 26 mg/dL 09/26/2024 12:08 PM EDT [facility] Creatinine, Urine 199 mg/dL 09/26/2024 12:08 PM EDT [facility] Protein/Creati nine Ratio 0.1 mg/mg Creat 09/26/2024 12:08 PM EDT [facility] Urine Urine specimen obtained by clean catch procedure / Unknown Non-blood Collection / Unknown 09/26/2024 10:03 AM EDT 09/26/2024 10:04 AM EDT us Bill Patrick MD LAB URINE ORDERABLES Final Resul t Performing Organization Address City/[facility] Co de Phone Number [facility] [address] [place] [address] * Potassium, urine, random (09/26/2024 10:02 AM EDT) Potassium, Urine 43 mmol/L 09/26/2024 11:55 AM EDT [facility] Urine Urine specimen obtained by clean catch procedure / Unknown Non-blood Collection / Unknown 09/26/2024 10:02 AM EDT 09/26/2024 10:02 AM EDT us Bill Patrick MD LAB URINE ORDERABLES Final Resul t Performing Organization Address [facility] Co de Phone Number [facility] [address] [place] [address] * Osmolality, urine (09/26/2024 10:02 AM EDT) Osmolality, Urine 404 50 - 1,200 mOsm/kg 09/26/2024 1:48 PM EDT [facility] Urine Urine specimen obtained by clean catch procedure / Unknown Non-blood Collection / Unknown 09/26/2024 10:02 AM EDT 09/26/2024 10:02 AM EDT us Bill Patrick MD LAB URINE ORDERABLES Final Resul t Performing Organization Address City/[facility] Co de Phone Number [facility] [address] [place] [address] * Sodium, urine, random (09/26/2024 10:02 AM EDT) Sodium, Urine 110 mmol/L 09/26/2024 11:55 AM EDT [facility] Urine Urine specimen obtained by clean catch procedure / Unknown Non-blood Collection / Unknown 09/26/2024 10:02 AM EDT 09/26/2024 10:02 AM EDT Bill Patrick MD LAB URINE ORDERABLES Final Resul t [facility] [address] [place] [address] * Antinuclear Antibody (JEFFERY), HEp-2, IgG (09/26/2024 9:32 AM EDT) JEFFERY INTERPRETIVE COMMENT See Note 09/28/2024 5:13 PM EDT [facility] ([facility]) Anti Nuc Ab Screen <1:80 <1:80 09/28/2024 5:13 PM EDT [facility] ([facility]) Blood Venous blood specimen / Unknown Venipuncture / Unknown 09/26/2024 9:32 AM EDT 09/26/2024 9:32 AM EDT Narrative [facility] ([facility]) - 09/28/2024 5:13 PM EDT INTERPRETIVE INFORMATION: [...] rings, and cytoplasmic speckled patterns. Performed By: [facility] [address] [place] [address] Sales Demonstrator: Brandon Bell MD, PhD CLIA Number: [id number] Bill Patrick MD LAB BLOOD ORDERABLES Final Resul t [facility] ([facility]) [address] [place] [address] * Rheumatoid factor, plasma (09/26/2024 9:32 AM EDT) Pathologist [facility] Rheumatoid Factor, Plasma <10 <14 IU/mL 09/26/2024 1:49 PM EDT [facility] Blood Venous blood specimen / Unknown Venipuncture / Unknown 09/26/2024 9:32 AM EDT 09/26/2024 9:32 AM EDT Bill Patrick MD LAB BLOOD ORDERABLES Final Resul t [facility] [address] [place] [address] * SSB (LA) (YARA) ANTIBODY, IGG (09/26/2024 9:32 AM EDT) SSB (LA) (YARA) Antibody, IgG 0 0 - 40 AU/mL 09/28/2024 5:47 PM EDT [facility]) Serum Venous blood specimen / Unknown 09/26/2024 9:32 AM EDT 09/26/2024 9:32 AM EDT Narrative [facility]) - 09/28/2024 5:47 PM EDT INTERPRETIVE INFORMATION: [...] (PSS) also have this antibody. Performed By: [facility] [address] [place] [address] Sales Demonstrator: Brandon Bell MD, PhD CLIA Number: [id number] us Bill Patrick MD LAB BLOOD ORDERABLES Final Resul t [facility] ([facility]) [address] [place] [address] * SSA 52 and 60 (Ro) (YARA) Antibodies, IgG (09/26/2024 9:32 AM EDT) SSA-52 (RO52) (YARA) Antibody, IgG 2 0 - 40 AU/mL 09/28/2024 5:47 PM EDT [facility] ([facility]) SSA-60 (RO60) (YARA) Antibody, IgG 0 0 - 40 AU/mL 09/28/2024 5:47 PM EDT [facility] ([facility]) Serum 09/26/2024 9:32 AM EDT 09/26/2024 9:32 AM EDT Narrative [facility] ([facility]) - 09/28/2024 5:47 PM EDT INTERPRETIVE INFORMATION: [...] AU/mL or Greater .......... Positive Performed By: [facility] [address] [place] [address] Sales Demonstrator: Brandon Bell MD, PhD CLIA Number: [id number] us Bill Patrick MD LAB REF LAB BLOOD AND FLUID ORD Final Result [facility] ([facility]) [address] [place] [address] * (ABNORMAL) Renal function panel (09/26/2024 9:32 AM EDT) Glucose, Plasma 87 74 - 99 mg/dL 09/26/2024 12:24 PM EDT [facility] BUN, Plasma 5(L) 7 - 21 mg/dL 09/26/2024 12:24 PM EDT [facility] Creatinine, Plasma 0.72 0.60 - 1.10 mg/dL 09/26/2024 12:24 PM EDT [facility] BUN/Creatinine Ratio 7 09/26/2024 12:24 PM EDT [facility] Sodium, Plasma 135(L) 136 - 145 mmol/L 09/26/2024 12:24 PM EDT [facility] Potassium, Plasma 3.1(L) 3.6 - 4.9 mmol/L 09/26/2024 12:24 PM EDT [facility] Chloride, Plasma 95(L) 97 - 107 mmol/L 09/26/2024 12:24 PM EDT [facility] CO2, Plasma 26 22 - 29 mmol/L 09/26/2024 12:24 PM EDT [facility] Anion Gap 14 6 - 16 mmol/L 09/26/2024 12:24 PM EDT [facility] Total Calcium, Plasma 9.4 8.9 - 10.2 mg/dL 09/26/2024 12:24 PM EDT [facility] Phosphorus, Plasma 3.5 2.5 - 4.5 mg/dL 09/26/2024 12:24 PM EDT [facility] Albumin, Plasma 3.6 3.5 - 5.2 g/dL 09/26/2024 12:24 PM EDT [facility] eGFRcr 113.4 mL/min/1.7 3m*2 09/26/2024 12:24 PM EDT [facility] Comment:Reported eGFRcr in m L/min/1.73m2 is based the CKD-EPI 2020 equation that does not use a race coefficient. Blood Venous blood specimen / Unknown Venipuncture / Unknown 09/26/2024 9:32 AM EDT 09/26/2024 9:32 AM EDT us Bill Patrick MD LAB BLOOD ORDERABLES Final Resul t Performing Organization Address City/[facility] Co de Phone Number [facility] [address] [place] [address] * (ABNORMAL) Osmolality (09/26/2024 9:32 AM EDT) Osmolality, Serum 273(L) 275 - 295 mOsm/Kg 09/26/2024 2:10 PM EDT [facility] Blood Venous blood specimen / Unknown Venipuncture / Unknown 09/26/2024 9:32 AM EDT 09/26/2024 9:32 AM EDT us Bill Patrick MD LAB BLOOD ORDERABLES Final Resul t Performing Organization Address City/[facility] Co de Phone Number [facility] [address] [place] [address] documented in this encounter Visit Diagnoses Diagnosis Hypokalemia- Primary Hypopotassemia documented in this encounter Additional Health Concerns Assessment Noted Time A fall risk assessment has been complete d for the patient 09/25/2024 3:05 PM EDT A Body Mass Index follow-up plan has been documented for the patient 10/05/2024 8:54 PM EDT documented as of this encounter Care Teams Cold Roll Packer Sheet Iron Relationship Specialty Start Date End Date Norma Friedman APRN [address] [place] [address] PCP - General 09/23/24 documented as of this encounter
--- OUTSIDE RECORDS SUMMARY | 2024-09-26 08:00 | XMS_ITS | Encounter Summary ---
Author Organization [facility] Address [address] [place] [address] Care Team Providers Care Driver'S License Reviewing Officer Name Role Phone Norma Friedman STITCH BONDING MACHINE OPERATOR Primary Care Provider +1- [phone] Lizz Trinh RN Unavailable Unavailable Reason for Referral * Consultation (Routine) - Authorized Specialty Diagnoses / Procedures Referred By Tarik pedersen Referred To Contact Diagnoses Palpitations Syncope and collapse Nneka Vasquez MD [address] [place] [phone] Phone: tel: fax: Referral ID Status Reason Start Date Expiration Date V isits Requested Visits Authorized [id number] Authorized 09/26/2024 03/28/2026 1 1 * Cardiac Stress Testing (Routine) - Closed Specialty Diagnoses / Procedures Referred By Contac t Referred To Contact Cardiology Diagnoses Palpitations Syncope and collapse Procedures Adult Patch Monitor - 7 Day Nneka Vasquez MD [address] [place] [phone] Phone: tel: fax: Referral ID Status Reason Start Date Expiration Date Visits Re quested Visits Authorized [id number] Closed 09/26/2024 03/28/2026 1 1 Reason for Visit * Consultation (Routine) - Closed Specialty Diagnoses / Procedures Referred By Contac t Referred To Contact Cardiology Diagnoses Supervision of high risk , antepartum Cardiac arrhythmia, unspecified cardiac arrhythmia type [place]Liborio Preciado MD [address] [address] Phone: tel: fax: Referral ID Status Reason Start Date Expiration Date V isits Requested Visits Authorized [id number] Closed Specialty Services Required 09/23/2024 03/25/2026 1 1 Encounter Details Date Type Department Care Team (Late st Contact Info) Description 09/26/2024 8:00 AM EDT Office Visit [facility] [place] [address] [facility], [address] [place] [address] Nneka Vasquez MD [address] [place] [address] Syncope and collapse (Primary Dx); [...] more drinks on one occasion? Never 09/23/2024 [place] Depression Scale Answer Date Recorded [place] Depression Scale Total 0 09/23/2024 The thought [...] Vasquez MD - 09/26/2024 8:00 AM EDT [place] [facility] ([facility]) Problem List #Hypomagnesium and Hypokalemia [...] home with no plans. 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 teletypesetter monitor today to evaluate for abnormal rhythms [...] TOOTH EXTRACTION N/A Oral Surgery Tooth Extraction [place] Tooth from [employer] [3] Social History Socioeconomic [...] Low Risk (05/28/2024) Received from [facility] Overall Financial Resource Strain (CARDIA) Difficulty of Paying Living Expenses: Not hard at all Food Insecurity: No Food Insecurity (05/28/2024) Received from [facility] Hunger Vital Sign Within the past 12 months, you worried that your food would run out before you got the money to buymore.: Never true Within the past 12 months, the food you bought just didn't last and you didn't have money to get more.: Never true Transportation Needs: No Transportation Needs (05/28/2024) Received from [facility] PRAPARE - Transportation In the past 12 months, has lack of transportation kept you from medical appointments or from getting medications?: No In the past 12 months, has lack of transportation kept you from meetings, work, or from getting things needed for daily living?: No Physical Activity: Sufficiently Active (05/28/2024) Received from [facility] Exercise Vital Sign On average, how many days per week do you engage in moderate to strenuous exercise (like a brisk walk)?: 5 days On average, how many minutes do you engage in exercise at this level?: 40 min Stress: Stress Concern Present (05/27/2024) Received from [facility] [place] [employer] - Occupational Stress Questionnaire Feeling of Stress : To some extent Social Connections: Not At Risk (05/28/2024) Received from [facility] Family and Community Support If for any reason you need help with day-to-day activities such as bathing, preparing meals, shopping, managing finances, etc., do you get the help you need?: I don't need any help How often do you feel lonely or isolated from those around you?: Sometimes Intimate Partner Violence: Not At Risk (08/19/2024) Received from [facility] Abuse Screen Feels Unsafe at Home or Work/School: no Feels Threatened by Someone: no Does Anyone Try to Keep You From Having Contact with Others or Doing Things Outside Your Home?: no Physical Signs of Abuse Present: no Housing Stability: Not At Risk (08/20/2024) Received from [facility] Housing Stability Current Living Arrangements: home [...] Info) Description 10/17/2024 8:30 AM EDT Appointment [facility] Ul[facility]ound [address] [place] [address] 10/17/2024 9:15 AM EDT Routine Medical Office Building Obstetrics and Gynecology [address] [facility], [address] [place] [address] Laury Cruz MD [address] [facility] [address] [place] [address] 10/24/2024 8:00 AM EDT Office Visit [facility] [place] [address] [facility], [address] [place] [address] Nneka Vasquez MD [address] [place] [address] 12/25/2024 1:00 PM EST Office Visit [facility] Nephrology, Bone & Mineral Metabolism [address] [facility], [address] [place] [address] Scheduled Referrals Name Type Priority [...] on Day 3 / 08:47:57 pm SVE(s): [place] was 3.46 %, [address] total SVE(s) SV Arrhythmia(s): 21 events, longest event 7 beats on Day 03:05:26 am, fastest event 111 bpm on Day 02:02:39 am PVC(s): [place] was 0.03 %, 189 total PVC(s), 1 [...] ECG Atrial Rate 84 BPM MUSE ECG [place] Interval 148 ms MUSE ECG QRSD Interval 74 ms MUSE ECG QT Interval 374 ms MUSE ECG QTC Interval 441 ms MUSE ECG P [place] 60 degrees MUSE ECG R [place] 36 degrees MUSE ECG T Wave [place] 55 degrees MUSE ECG Diagnosis Normal sinus rhythm with sinus arrhythmia MUSE ECG Diagnosis Normal ECG MUSE ECG Diagnosis MUSE ECG Diagnosis Confirmed by Abad South ([id number]) on 09/26/2024 12:13:59 PM MUSE ECG 09/26/2024 [...] documented as of this encounter Care Teams Driver'S License Reviewing Officer Relationship Specialty Start Date End Date Norma Friedman, STITCH BONDING MACHINE OPERATOR [address] [place] [address] PCP - General 09/23/24 Lizz Trinh, RN [facility] Registered Nurse Cardiology 09/26/24 documented as of this encounter
--- OUTSIDE RECORDS SUMMARY | 2024-09-26 09:06 | XMS_ITS | Encounter Summary ---
Author Organization [facility] Address [address] [place] [address] Care Team Providers Care General Road Foreman Name Role Phone Elder Kadedev Coy OIL AND GAS EXPLORATION TECHNICIAN Primary Care Provider +1- [phone] Lizz Trinh RN Unavailable Unavailable Reason for Referral * Cardiac Stress Testing (Routine) - Closed Specialty Diagnoses / Procedures Referred By Tarik pedersen Referred To Contact Cardiology Diagnoses Palpitations Syncope and collapse Procedures Adult Patch Monitor - 7 Day Nneka Vasquez MD [address] [place] [address] Phone: tel: fax: Referral ID Status Reason Start Date Expiration Date Visits Re quested Visits Authorized [id number] Closed 09/26/2024 03/28/2026 1 1 Reason for Visit * Cardiac Stress Testing (Routine) - Closed Specialty Diagnoses / Procedures Referred By Tarik pedersen Referred To Contact Cardiology Diagnoses Palpitations Syncope and collapse Procedures Adult Patch Monitor - 7 Day Nneka Vasquez MD [address] [place] [address] Phone: tel: fax: Referral ID Status Reason Start Date Expiration Date Visits Re quested Visits Authorized [id number] Closed 09/26/2024 03/28/2026 1 1 Encounter Details Date Type Department Care Team (Latest Contact Info) Description 09/26/2024 9:06 AM EDT - 09/26/2024 11:59 PM EDT Hospital Encounter Medical Office Building Cardiac Diagnostic Testing Medical Office Building Echo Lab [address] [facility], [address] [place] [address] Palpitations; Syncope and collapse Discharge [...] more drinks on one occasion? Never 09/23/2024 [place] Depression Scale Answer Date Recorded [place] Depression Scale Total 0 09/23/2024 The thought [...] 2 times a day. 09/02/2024 Prenat MV-Min w/Iu-Pcrvud-TEF ( COMPLETE PO) 12/25/2018 thiamine (Vitamin B-1) 100 MG tablet Take 1 tablet by mouth 1 time each day. 09/01/2024 documented as of this encounter Plan of Treatment Upcoming Encounters Date Type Department Care Team ([facility] st Contact Info) Description 10/17/2024 8:30 AM EDT Appointment [facility] Ultrasound [address] [place] [address] 10/17/2024 9:15 AM EDT Routine Medical Office Building Obstetrics and Gynecology [address] [facility], [address] [place] [address] Laury Cruz MD [address] [facility] [facility] [address] [place] [address] 10/24/2024 8:00 AM EDT Office Visit [facility] [place] [address] [facility] [facility], [address] [place] [address] Nneka Vasquez MD [address] [place] [address] 12/25/2024 1:00 PM EST Office Visit [facility] Nephrology, Bone & Mineral Metabolism [address] [facility] [facility], [address] [place] [address] documented as of this encounter [...] on Day 3 / :47:57 pm SVE(s): [place] was 3.46 %, [address] total SVE(s) SV Arrhythmia(s): 21 events, longest event 7 beats on Day :05:26 am, fastest event 111 bpm on Day :02:39 am PVC(s): [place] was 0.03 %, 189 total PVC(s), 1 [...] as of this encounter Care Teams General Road Foreman Relationship Specialty Start Date End Date Norma Friedman APRN [address] [place] [address] PCP - General 09/23/24 Lizz Trinh, RN [facility] Registered Nurse Cardiology 09/26/24 documented as of this encounter
--- OUTSIDE RECORDS SUMMARY | 2024-10-14 07:25 | XMS_ITS | Encounter Summary ---
Author Organization [facility] Address [address] [place] [address] Care Team Providers Care Supervisor Felting Name Role Phone Elder Kadedev Coy APRN Primary Care Provider +1- [phone] Lizz Trinh RN Unavailable Unavailable Reason for Referral * Consultation (Routine) - Authorized Specialty Diagnoses / Procedures Referred By Tarik pedersen Referred To Contact Nephrology Diagnoses History of proteinuria syndrome care, subsequent , second trimester Staci Jain MD [address] [address] Phone: tel: fax: [facility] Nephrology, Bone & Mineral Metabolism [address], [address] [place] [address] Phone: tel: fax: Referral ID Status Reason Start Date Expiration Date Visits Requested Visits Authorized [id number] Authorized Specialty Services Required 07/22/2024 01/21/2026 1 1 Encounter Details Date Type Department Care Team (Late st Contact Info) Description 07/22/2024 Community Orders Community Practice [address] [place] [address] Staci Jain MD [address] [place] [address] History of proteinuria syndrome (Primary Dx); care, [...] Info) Description 10/17/2024 8:30 AM EDT Appointment [facility] Ultrasound [address], [address] [place] [address] 10/17/2024 9:15 AM EDT Routine Medical Office Building Obstetrics and Gynecology [address], [address] [place] [address] Laury Cruz MD [address] [place] [address] 10/24/2024 8:00 AM EDT Office Visit [facility] [address], [address] [place] [address] Nneka Block MD [address] [place] [address] 12/25/2024 1:00 PM EST Office Visit [facility] Nephrology, Bone & Mineral Metabolism [address], [address] [place] [address] Scheduled Referrals Name Type Priority Associated Diagnoses Orde r Schedule Ambulatory referral to Nephrology Outpatient Referral Routine History of proteinuria syndrome care, subsequent , second trimester Expected: 07/22/2024 (Approximate), Expires: 01/23/2026 documented as of this encounter Visit Diagnoses Diagnosis History of proteinuria syndrome- Primary care, subsequent , second trimester documented in this encounter Care Teams Supervisor Felting Relationship Specialty Start Date End Date Norma Friedman APRN [address] [place] [address] PCP - General 09/23/24 Lizz Trinh, RN [facility] Registered Nurse Cardiology 09/26/24 documented as of this encounter
--- OUTSIDE RECORDS SUMMARY | 2024-10-14 07:25 | XMS_ITS | Encounter Summary ---
Author Organization Healthcare Address [address] [place] [address] Care Team Providers Care Online Education Manager Name Role Phone Norma Friedman JOLENE Primary Care Provider +1- [phone] Lizz Trinh RN Unavailable Unavailable Encounter Details Date Type Department Care Team (Late Contact Info) Description 07/22/2024 [facility] [address] [place] [address] Sandy Cardenas MD [address] [facility] [address] [place] [address] Social History Tobacco Use Types Packs/Day Years [...] Info) Description 10/17/2024 8:30 AM EDT Appointment [facility] Ultrasound [address], [address]nd [place] [address] 10/17/2024 9:15 AM EDT Routine Medical Office Building Obstetrics and Gynecology [address] [facility] [address], [address] [place] [address] Laury Cruz MD [address] [facility] [address] [place] [address] 10/24/2024 8:00 AM EDT Office Visit [facility] [place] [address], [address] [place] [address] Nneka Block MD [address] [place] [address] 12/25/2024 1:00 PM EST Office Visit [facility] Nephrology, Bone & Mineral Metabolism [address] [facility], [address] [place] [address] documented as of this encounter Visit Diagnoses Not on filedocumented in this encounter Care Teams Online Education Manager Relationship Specialty Start Date End Date Norma Friedman APRN [address] [place] [address] PCP - General 09/23/24 Lizz Trinh, RN [facility] Registered Nurse Cardiology 09/26/24 documented as of this encounter
--- OUTSIDE RECORDS SUMMARY | 2024-10-14 07:25 | XMS_ITS | Clinical Summary ---
Author Organization [facility] [place] [address] Phone Care Team Providers Care Commercial Loan Underwriter Name Role Phone Unavailable Primary Care Provider [...] migh t be different from the original. [facility] - Edwardo Ojeda MD Interventional Pain Protocol: NS Appt 03/29/22 Letter Sent Maxime report completed (EVERY 3 MONTHS) ( 03/23/22) Pharmacy: [facility] [address] [place] [phone] [facility] south - [phone] No known active problems Social History Tobacco [...] patient's age to complete this topic Insurance [employer] [facility] [id number]
--- OUTSIDE RECORDS SUMMARY | 2024-10-14 07:26 | XMS_ITS | Clinical Summary ---
Author Organization [facility] Address [address] [place] [address] Care Team Providers Care Warehouse Helper Name Role Phone Norma Friedman APRN Primary Care Provider + [phone] Allergies Active Allergy Reactions Criticality Noted Date [...] Type Department Care Team Description 5 Telephone [facility] MATERNAL MEDICINE 1700 [facility] [address] [place] [address] Lyudmila Germain, sports book writer Only 5 Documentation [facility] LABOR DELIVERY [address] [place] [address] Christy Zabala RN 5 Results Follow-Up [facility] [address] [place] [address] Rob Wharton MD 5 Telephone [facility] [address] [facility] [address] [place] [address] Rob Wharton MD 5 10:00 AM EDT Routine [facility] OBG[facility] [place] [address] Rob Wharton MD GA: 26w4d 5 Travel 5 Telephone [facility] 17[address] [facility] [address] [place] [address] Rob Wharton MD 5 Telephone [facility] OBG[facility] [place] [address] Rob Wharton MD 5 1:44 PM EDT Anesthesia Event [facility] END[facility] SUITES [address] [place] [address] Akash Anguiano MD Lanham, John, CRNA 5 1:33 PM EDT - 5 2:05 PM EDT Surgery [facility] [address] [facility] [place] [address] Blu Alvarado MD ESOPHAGOGASTRODUODENOSCOPY [[id number] (CPT )] 5 1:59 PM EDT - 5 4:28 PM EDT Hospital Encounter [facility] ANTEPARTUM [address] [place] [address] Rob Wharton MD Brunner, Mark I, MD Dysphagia, unspecified type (Primary Dx) Discharge Disposition: Home or Self Care 5 10:15 AM EDT Routine [facility] OBG[facility] [address] [place] [address] Jacey Mathews, CONTINUOUS IMPROVEMENT BLACK BELT GA: 25w 5 Telephone [facility] [address] [place] [address] Jacey Mathews, CONTINUOUS IMPROVEMENT BLACK BELT 5 Travel 5 Patient Outreach [facility] DELIV[facility] [address] [place] [address] Christy Zabala RN 5 9:10 AM EDT Routine [facility] 1700 [facility] [address] [place] [address] Rob Wharton MD GA: 21w 5 8:00 AM EDT Office Visit [facility] MATERNAL MEDICINE 1700 [facility] [address] [place] [address] Sebastian Larsen MD History of prior with small for gestational age (Primary Dx) 5 7:44 AM EDT - 5 11:59 PM EDT Hospital Encounter [facility] US PER DIAG CTR [address] [place] [address] Kelly Delgado, CONTINUOUS IMPROVEMENT BLACK BELT care, antepartum, unspecified ; High risk due [...] Not hard at all 05/28/2024 [facility] of Occupat ional Health - Occupational Stress [...] Office Visit [facility] [facility] [address] [place] [address] Robbin Escalante MD [address] [facility] [address] [place] [address] Health Maintenance Due Date Last [...] 08/20/2024 1:55 PM EDT Dysphagia, unspecified type UT ESOPHAGOGASTRODUODENOSCOP Y TRANSORAL DIAGNOSTIC 08/20/2024 1:44 PM [...] AM EDT Multigravida in second trimester [facility] Routine 07/22/2024 9:10 AM [...] 08/30/2024 6:09 AM EDT Performed at: [address] [place] [id number] Hotel Front Office Manager: Kevin Harman MD, Phone: [phone] Patient Fasting: N Rob Wharton MD LAB BLOOD ORDERABLES Final Result [facility] (AMBULATORY) [address] [place] [address], [facility] [address] [place] [address], [place] [phone] * (ABNORMAL) Comprehensive Metabolic Panel (08/29/2024 11:05 AM EDT) Only the most recent of2 resultswithin the time period is included. [facility] Glucose 72 65 - 99 mg/dL [...] 08/30/2024 6:09 AM EDT Performed at: [address] [place] [id number] Hotel Front Office Manager: Kevin Harman MD, Phone: [phone] Patient Fasting: N us Rob Wharton MD LAB BLOOD ORDERABLES Final Result [facility] (AMBULATORY) [address] [place] [address], [facility] [address] [place] [address], [place] [phone] * (ABNORMAL) POC Urinalysis Dipstick (08/29/2024 10:13 AM EDT) Only the most recent of2 resultswithin the time period is included. Glucose, UA Negative Negative mg/dL [facility] Protein, POC Trace(A) Negative mg/dL [facility] Urine 08/29/2024 10:1 3 AM EDT Rob Wharton MD POINT OF CARE TEST OR DERABLES Final Result [facility]
[address] [place] [address], [place] [phone] * BH AN ETT AIRWAY (08/20/2024 2:02 [...] symmetric chest rise and fall Liborio Peralta AMPOULE FILLER ANESTHESIA ORDERABLES Final Res ult * Tissue Pathology Exam (08/20/2024 1:55 PM EDT) Case Report Surgical Pathology Report Case: [id number] Authorizing Provider: Blu Alvarado MD Collected: 08/20/2024 [...] or malignancy 08/22/2024 9:18 AM EDT [facility] at 0918 EDT [...] ORDERABLES Final Result [facility]
[address] [place] [address], * Upper GI Endoscopy (08/20/2024 1:09 PM [...] not include race as a factor Hernando Vargsa MD LAB BLOOD ORDERABLES Final Resu lt Performing Organization Address City/[facility] Co de Phone Number [facility]
[address] [place] [address], * (ABNORMAL) Potassium (08/19/2024 8:53 PM EDT) Potassium 2.7(L) 3.5 - 5.2 mmol/L 08/19/2024 9:20 PM EDT [facility] Blood Venipuncture / Unknown 08/19/2024 8:53 PM EDT 08/19/2024 9:04 PM EDT Kt Fan DO LAB BLOOD ORDERABLES Final Result Performing Organization Address [facility] Co de Phone Number [facility]
[address] [place] [address], [place] [phone] * ABO RH Specimen Verification (08/19/2024 4:34 PM EDT) ABO Type O 08/19/2024 7:39 PM EDT [facility]OR[facility] RH type Positive 08/19/2024 7:39 PM EDT [facility] Blood Venipuncture / Unknown 08/19/2024 4:34 PM EDT 08/19/2024 4:53 PM EDT Rob Wharton MD BLOOD BANK TEST ORDER FRANCO Final Result [facility]
[address] [place] [address], * [facility] (08/19/2024 3:25 PM EDT) Only the most recent of2 resultswithin the time period is included. Anatomical Region Laterality Modality Ultrasound 08/19/2024 3:09 PM EDT Narrative 08/19/2024 4:54 PM EDT PAT NAME: CAROLE GIRARD MED REC#: [id number] DA: [id number] PAT GEND: F PAT TYPE: E EXAM TRAVIS: [id number] REF PHYS ROB WHARTON Comparison Studies The [...] EFW (oz) 9 oz EFW by: Hadlock (PBD-VS-BB-FL) Extended Cav. septi pel. tr 4.7 mm Reformatory Attendant 3.8 mm CM 7.5 mm 84% [...] Heart / Thorax 3-vessel view: Appears normal 8-dmvtki-gbkredn view: Appears normal Stomach: Appears normal Kidneys: [...] in 4wks for growth. Coding ======= Description: 39360-76 Follow Up Facing End Trimmer: RT Annetta Hartmann , [facility] Physician: Jo Chappell MD Electronically signed by: Jo Chappell MD at: 16:54 Procedure Note Jo Chappell MD - 08/19/2024 PAT NAME: CAROLE GIRARD MED REC#: [id number] DA: 1990 PAT GEND: F PAT TYPE: E EXAM TRAVIS: [id number] REF PHYS ROB WHARTON Comparison Studies The findings of this study are compared to the prior ultrasound studydated 07/22/24 Patient Status Inpatient Indication ======== History of c/s x1. History of . Vaginal bleeding. Maternal Assessment Rexzrq104 cm Height (ft)5 ft Height (in)4 in Mqxwbm81 kg Weight (lb)158 lb BMI27.31 kg/m Method ======= Transabdominal ultrasound examination. View: Limited by patient bodyhabitus ========= Love . Number of fetuses: 1 Dating ====== Method of dating:based on stated DUSTY GA by prior [id number] w + 1 d DUSTY by prior assessment:12/01/2024 Ultrasound examination on:08/19/2024 GA by U/S based upon:AC, BPD, Femur, HC GA by U/S24 w + 2 d DUSTY by U/S:12/07/2024 Previous dating:based on stated DUSTY, selected on 07/22/2024 Agreed DUSTY of previous datin12/01/2024 Assigned:based on stated DUSTY, selected on 08/19/2024 Assigned GA25 w + 1 d Assigned DUSTY:12/01/2024 [id number] d Biometry Standard BPD57.6 mm 23w 4d 5% Hadlock OFD81.6 mm 26w 4d 88% Jamal HC225.7 mm 24w 4d 13% Hadlock Cerebellum tr28.9 mm 25w 2d 62% Hill AC194.9 mm 24w 1d 15% Hadlock Femur44.9 mm 24w 6d 27% Hadlock Lpabfbn44.3 mm 25w 3d 50% Jamal HC / AC1.16 JRI991 g 24w 2d 16% Hadlock EFW (lb)1 lb EFW (oz)9 oz EFW by:Hadlock (OWM-PS-ZO-FL) Extended Cav. septi pel. tr4.7 mm Vp3.8 mm CM7.5 mm 84% Nicolaides Head / Face / Neck Cephalic index0.71 <1% Nicolaides Extremities / Bony Struc FL / BPD0.78 FL / HC0.20 FL / AC0.23 Other Structures LBP886 bpm General Evaluation Cardiac activity present. FHR [...] normal Heart / Thorax 3-vessel view:Appears normal 7-wglhph-fpssvuh view:Appears normal Stomach:Appears normal Kidneys:Appears normal Bladder:Appears normal Gender:female Wants to know gender:yes Maternal Structures Uterus / Cervix Cervix:Visualized Approach:Transabdominal Cervical piplvt46.9 mm Doppler Arterial Umbilical A PI1.01 32% [...] office in 4wks for growth. Coding ======= Description:38675-25 Follow Up Facing End Trimmer: RT Annetta Hartmann , [facility] Physician: Jo Chappell MD Electronically signed by: Jo Chappell MD at: 16:54 us Kt Fan DO [facility] US ORDERABLES Final Res ult * Urinalysis, [...] Final Resu lt [facility]
[address] [place] [address], * (ABNORMAL) Urinalysis With Microscopic If Indicated (No Culture) - Urine, Clean Catch (08/19/2024 3:02 PM EDT) Color, UA Yellow Yellow, Straw 08/19/2024 3:33 PM EDT [facility] Appearance, UA Clear Clear 08/19/2024 3:33 PM EDT [facility] pH, UA >=9.0(H) 5.0 - 8.0 08/19/2024 3:33 PM EDT [facility] Specific [place], UA 1.018 1.005 - 1.030 08/19/2024 3:33 [...] Resu lt [facility]
[address] [place] [address], * (ABNORMAL) CBC Auto Differential (08/19/2024 3:02 [...] ORDERABLES Final Result [facility]
[address] [place] [address], * Protein / Creatinine Ratio, Urine - Urine, Clean Catch (08/19/2024 3:02 PM EDT) Protein/Creati nine Ratio, Urine 126.1 0.0 - 200.0 mg/G Crea 08/20/2024 12:47 AM EDT [facility] Creatinine, Urine 148.3 mg/dL 08/20/2024 12:47 AM EDT [facility] Total Protein, Urine 18.7 mg/dL 08/20/2024 12:47 AM EDT [facility] Urine Urine specimen obtained by clean catch procedure / Unknown Collection / Unknown 08/19/2024 3:02 PM EDT 08/19/2024 4:26 PM EDT Kt Fan DO URINE ORDERABLES Final Resu lt [facility]
[address] [place] [address], * Type & Screen (08/19/2024 3:02 PM EDT) ABO Type O 08/19/2024 3:51 PM EDT [facility] RH type Positive 08/19/2024 3:51 PM EDT [facility] Antibody Screen Negative 08/19/2024 3:51 PM EDT [facility] T&S Expiration Date 08/22/2024 11:59:59 PM 08/19/2024 3:51 PM EDT [facility] Blood Line / Unknown 08/19/2024 3: 02 PM EDT 08/19/2024 3:15 PM EDT Kt Fan DO BLOOD BANK TEST ORDERABLES Edited Result - Final Performing Organization Address City/[facility]/ZIP Co de Phone Number [facility]
[address] [place] [address], * (ABNORMAL) Magnesium (08/19/2024 3:02 PM EDT) Magnesium 1.5(L) 1.6 - 2.6 mg/dL 08/19/2024 5:12 PM EDT [facility] Blood Line / Unknown 08/19/2024 3: 02 PM EDT 08/19/2024 3:10 PM EDT us Kt Fan DO LAB BLOOD ORDERABLES Final Result [facility]
[address] [place] [address], * Lipase (08/19/2024 3:02 PM EDT) Lipase 13 13 - 60 U/L 08/19/2024 3:36 PM EDT [facility] Blood Line / Unknown 08/19/2024 3: 02 PM EDT 08/19/2024 3:10 PM EDT Kt Fan DO LAB BLOOD ORDERABLES Final Result Performing Organization Address City/[facility]/ZIP Co de Phone Number [facility]
[address] [place] [address], * Amylase (08/19/2024 3:02 PM EDT) Pathologist [facility] Amylase 73 28 - 100 U/L 08/19/2024 3:36 PM EDT [facility] Blood Line / Unknown 08/19/2024 3: 02 PM EDT 08/19/2024 3:10 PM EDT Kt Fan DO LAB BLOOD ORDERABLES Final Result Performing Organization Address [facility] de Phone Number [facility]
[address] [place] [address], * Hepatitis C Antibody (04/12/2024) Pathologist [facility] Hep C Virus Ab negative Blood Historical Provider LAB BLOOD ORDERABLES Lena l Result from Last 3 Months or Most Recently Relevant to Health Maintenance Insurance [facility] Care Teams Warehouse Helper Relationship Specialty Start Date End Date Norma Friedman APRN [address] [place] [address] [place]FA[place] APPIAH [address] PCP - General Family Medicine 05/14/24
--- OUTSIDE RECORDS SUMMARY | 2024-10-14 07:26 | XMS_ITS ---
Author Organization [facility] Address [address] [place] [address] Care Team Providers Care Auto Engine Mechanic Name Role Phone Norma Friedman APRN Primary Care Provider Motherhood Connection Status:Engaged (Active) Start date:05/23/2024 Enrollment date:05/23/2024 Case Team Name Relationship Phone Bindu Castellon RN Nurse Navigator Christy Zabala RN(Responsible Staff) Nurse Navig ator Continued Care and Services Coordination
--- OUTSIDE RECORDS SUMMARY | 2024-10-14 07:26 | XMS_ITS | Clinical Summary ---
Author Organization [facility] Address [address] [place] [address] Care Team Providers Care Paste Up Artist Name Role Phone Unavailable Primary Care Provider Unavailabl e Source Comments [facility] is fully rolled out with thefollowing exceptions:General Clinical Research [facility] Social History Tobacco Use Types Packs/Day [...]
--- OUTSIDE RECORDS SUMMARY | 2024-10-14 07:26 | XMS_ITS | Encounter Summary ---
Author Organization [facility] Address [address] [place] [address] Care Team Providers Care Textile Worker Name Role Phone Norma Friedman APRN Primary Care Provider + [phone] Encounter Details Date Type Department Care Team (Late st Contact Info) Description 08/19/2024 Telephone [facility] O[facility] [address] [place] [address] Jacey Mathews, FAMILY MANAGER [address]00 [facility] [address] [place] [address] Social History Tobacco Use Types Packs/Day Years Used Date Smoking Tobacco: Never Smokeless Tobacco: Never Alcohol Use Standard Drinks/Week Comments Never 0 (1 standard drink = 0.6 oz pur e alcohol) [facility] Utilities Answer Date Recorded In the past 12 months has [employer], [employer], oil, or water [employer] threatened to shut off services in your [...] all 05/28/2024 [facility] of Occupat ional [facility] - Occupational Stress Questionnaire Answer Date [...] Visit [facility] GASTROENTEROLOGY [address] [address] Robbin Escalante MD [address] [address] documented as of this encounter Visit Diagnoses Not on filedocumented in this encounter Additional Health Concerns Assessment Noted Time PHQ-2 Depression Total Score: 2 05/28/19 25 4:39 PM EDT documented as of this encounter Care Teams Textile Worker Relationship Specialty Start Date End Date Norma Friedman APRN [address] [place] [address] [place] [address] PCP - General Family Medicine 05/14/24 documented as of this encounter
--- OUTSIDE RECORDS SUMMARY | 2024-10-14 07:26 | XMS_ITS | Encounter Summary ---
[facility] Address [address] [place] [address] Care Team Providers Care Rerolling Machine Operator Name Role Phone Ivyashlyn Norma FERNÁNDEZ Primary Care Provider + [phone] Encounter Details Date Type Department Care Team (Late st Contact Info) Description 08/27/2024 Telephone [facility] O[facility] [address] [place] [address] Staci Jain MD 1700 [facility] [address] [place] [address] Social History Tobacco Use Types Packs/Day Years Used Date Smoking Tobacco: Never Smokeless Tobacco: Never Alcohol Use Standard Drinks/Week Comments Never 0 (1 standard drink = 0.6 oz pur e alcohol) [facility] Utilities Answer Date Recorded In the past 12 months has [employer], [employer], oil, or water [employer] threatened to shut off services in your [...] hard at all 05/28/2024 [facility] of Occupat ional Health - Occupational Stress [...] Office Visit [facility] GASTR[facility]OLOG[facility] [address] [address] Robbin Escalante MD [address] [address] documented as of this encounter Visit Diagnoses Diagnosis History of hypokalemia- Primary documented in this encounter Additional Health Concerns Assessment Noted Time PHQ-2 Depression Total Score: 2 05/28/19 25 4:39 PM EDT documented as of this encounter Care Teams Rerolling Machine Operator Relationship Specialty Start Date End Date Norma Friedman APRN [address] [place] [address] [place]FA[place] [address] PCP - General Family Medicine 05/14/24 documented as of this encounter
--- OUTSIDE RECORDS SUMMARY | 2024-10-14 07:26 | XMS_ITS | Clinical Summary ---
Author Organization [email or web address] ([place], [place], [place], [place]) Address [address] [place] [address] Care Team Providers Care Balance Staff Staker Name Role Phone Unavailable Primary Care Provider [...]
--- OUTSIDE RECORDS SUMMARY | 2024-10-14 07:26 | XMS_ITS | Encounter Summary ---
[facility] Address [address] [place] [address] Care Team Providers Care [employer] Industrial Arts Teacher Name Role Phone Elder Norma FERNÁNDEZ Primary Care Provider + [phone] Encounter Details Date Type Department Care Team (Latest Contact Info) Description 08/29/2024 Travel Social History Tobacco Use Types Packs/Day Years Used Date Smoking Tobacco: Never Smokeless Tobacco: Never Alcohol Use Standard Drinks/Week Comments Never 0 (1 standard drink = 0.6 oz pur e alcohol) [facility] Utilities Answer Date Recorded In the past 12 months has [employer] electric, gas, oil, or water company threatened [...] all 05/28/2024 [facility] [place] of Occupat ional Health - Occupational Stress [...] EST Office Visit [facility] GASTROENTEROLOGY [address] [facility] [address] [place] [address] Robbin Escalante MD [address] [facility] [address] [place] [address] documented as of this encounter Visit Diagnoses Not on filedocumented in this encounter Additional Health Concerns Assessment Noted Time PHQ-2 Depression Total Score: 2 05/28/19 25 4:39 PM EDT documented as of this encounter Care Teams High [employer] Industrial Arts Teacher Relationship Specialty Start Date End Date Norma Friedman APRN [address] [place] [place] APP[place] [address] PCP - General Family Medicine 05/14/24 documented as of this encounter
--- OUTSIDE RECORDS SUMMARY | 2024-10-14 07:26 | XMS_ITS | Encounter Summary ---
[facility] Address [address] [place] [id number] Care Team Providers Care Mud Mixer Operator Name Role Phone Ivyashlyn Valentinoseven JOLENE Primary Care Provider + [phone] Encounter Details Date Type Department Care Team (Late st Contact Info) Description 06/26/2024 Results Follow-Up [facility] OBGYN [address] [address] Koby Roberts MD 1700 [place] [address] Social History Tobacco Use Types Packs/Day Years Used Date Smoking Tobacco: Never Smokeless Tobacco: Never Alcohol Use Standard Drinks/Week Comments Never 0 (1 standard drink = 0.6 oz pur e alcohol) [facility] Utilities Answer Date Recorded In the past 12 months has [employer], gas, oil, or water [employer] threatened to shut off services in your [...] hard at all 05/28/2024 [facility] [place] of Occupat ional Health - Occupational Stress [...] Visit [facility]ENTEROLOGY [address] [facility] [address] Robbin Escalante MD [address] [address] documented as of this encounter Visit Diagnoses Not on filedocumented in this encounter Additional Health Concerns Assessment Noted Time PHQ-2 Depression Total Score: 2 05/28/19 25 4:39 PM EDT documented as of this encounter Care Teams Mud Mixer Operator Relationship Specialty Start Date End Date Norma Friedman APRN [address] [place] [place] [address] PCP - General Family Medicine 05/14/24 documented as of this encounter
--- OUTSIDE RECORDS SUMMARY | 2024-10-14 07:26 | XMS_ITS | Encounter Summary ---
[facility] Address [address] [place] [id number] Care Team Providers Care Mechanical Assembly Technician Name Role Phone IvyNorma goldberg JOLENE Primary Care Provider + [phone] Reason for Visit * Reason Onset Date Comments Advice Only 10/10/2024 Encounter Details Date Type Department Care Team (Late st Contact Info) Description 10/10/2024 Telephone [facility] MATERNAL MEDICINE [address] [facility] [place] [address] [place] [address] Lyudmila Germain, inventory technician Only Social History Tobacco Use Types Packs/Day Years Used Date Smoking Tobacco: Never Smokeless Tobacco: Never Alcohol Use Standard Drinks/Week Comments Never 0 (1 standard drink = 0.6 oz pur e alcohol) [facility] Utilities Answer Date Recorded In the past 12 months has [employer], gas, oil, or water [employer] threatened to shut off services in your [...] all 05/28/2024 [facility] [place] of Occupat ional Health - Occupational Stress [...] GED or equivalent No 05/28/2024 Preferred Language Belgian 05/28/2024 PHQ-2 Answer Date Recorded Patient Health [...] Late entry: Patient called desiring appointment with [facility] due to hypokalemia and hypomagnesemia requiring infusions every other day. Per breastfeeding program coordinator, referral was received here last week but our physicians determined patient needs to continue receiving [facility] care at as she sees otherspeciality physicians (cardiology, nephrology) there as well. Discussed this with patient who states Dr. Weller () refused to see her again and she has no options. Patient reported her physicians at [facility] told her if she has another cardiac event she will . 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 Patient states cardiology refuses to see her until she ispostpartum - although it appears she has an appointment on 10/24. Per note from nephrology at , limited options for treatment other than continued repletion. Informed patient our office will reach out to [facility] at to determine if there is an issue in scheduling her there and we will call her back. After our office talked to [facility], a nurse there states there is no issue with her scheduling and she is more than welcome to come back for appointments. Called patient back, informed her she is welcome to schedule a follow-up at [facility] and gave her their office number. documented in this encounter Plan of Treatment Upcoming Encounters Date Type Department Care Team (Late st Contact Info) Description 01/20/2025 3:30 PM EST Office Visit [facility] GASTROENTEROLOGY [address] [facility] [address] [place] [address] Robbin Escalante MD [address] [facility] [address] [place] [address] documented as of this encounter Visit Diagnoses Not on filedocumented in this encounter Additional Health Concerns Assessment Noted Time PHQ-2 Depression Total Score: 2 05/28/19 4:39 PM EDT documented as of this encounter Care Teams Mechanical Assembly Technician Relationship Specialty Start Date End Date Norma Friedman APRN [address] [place] [address] [place] [address] PCP - General Family Medicine 05/14/24 documented as of this encounter
--- OUTSIDE RECORDS SUMMARY | 2024-10-14 07:26 | XMS_ITS | Encounter Summary ---
[facility] [address] [place] [id number] Care Team Providers Care Sock Knitting Machine Operator Name Role Phone Ivyashlyn Norma FERNÁNDEZ Primary Care Provider + [phone] Encounter Details Date Type Department Care Team (Late st Contact Info) Description 08/28/2024 Telephone [facility] OBGYN [address] [address] Staci Jain MD [address] [place] [id number] Social History Tobacco Use Types Packs/Day Years Used Date Smoking Tobacco: Never Smokeless Tobacco: Never Alcohol Use Standard Drinks/Week Comments Never 0 (1 standard drink = 0.6 oz pur e alcohol) [facility] Utilities Answer Date Recorded In the past 12 months has [employer], [employer], oil, or water [employer] threatened to shut off services in your [...] GED or equivalent No 05/28/2024 Preferred Language Malian 05/28/2024 PHQ-2 Answer Date Recorded Patient Health [...] with a family member admitted to [facility] today and does not know if she can make it back for labs (BMP). She does have an appt in [facility] at 10 am tomorrow. Advisedthat it would [...] states she was supposed to come into [place] office today to have labs drawn however sheis currently hung up at [facility] is wondering if she could just have labs drawn there? documented in this encounter Plan of Treatment Upcoming Encounters Date Type Department Care Team (Late st Contact Info) Description 01/20/2025 3:30 PM EST Office Visit [facility] GASTROENTEROLOGY 1720 [facility] [address] [place] [address] Robbin Escalante MD [address] [facility] [address] [place] [address] documented as of this encounter Visit Diagnoses Not on filedocumented in this encounter Additional Health Concerns Assessment Noted Time PHQ-2 Depression Total Score: 2 05/28/19 25 4:39 PM EDT documented as of this encounter Care Teams Sock Knitting Machine Operator Relationship Specialty Start Date End Date Norma Friedman APRN [address] [place] [address] [place] [address] PCP - General Family Medicine 05/14/24 documented as of this encounter
--- OUTSIDE RECORDS SUMMARY | 2024-10-14 07:26 | XMS_ITS | Encounter Summary ---
[facility] [address] [place] [id number] Care Team Providers Care Senior Director Finance Name Role Phone Ivyashlyn Norma FERNÁNDEZ Primary Care Provider + [phone] Encounter Details Date Type Department Care Team (Late st Contact Info) Description 09/02/2024 Telephone [facility] OBGYN [address] [address] Staci Jain MD [address] [place] [id number] Social History Tobacco Use Types Packs/Day Years Used Date Smoking Tobacco: Never Smokeless Tobacco: Never Alcohol Use Standard Drinks/Week Comments Never 0 (1 standard drink = 0.6 oz pur e alcohol) [facility] Utilities Answer Date Recorded In the past 12 months has Employee [employer], [employer], oil, or water [email or web address] threatened to shut off services in your [...] PM EDT She just got d/c'd from [facility] 2 hours ago and they gave her a total 10 MLE of K+ and 3 units of Mag and 2 liters of LR. She has decided to transfer care to [facility] as it iscloser to her like 15 min away. She wants you (Dr. Jain) to know this has nothing to you but rather the nurses and salesperson women's dresses doctor did not relay the labs to you in a faster fashion. She said you can call her if you want and she is not angry. Dr. Jain was notified. * Telephone Encounter - Frederick Gruber RN - 09/02/2024 3:10 PM EDT Polarizonicst message sent to the pt regarding outpt infusion apt tomorrow at [facility]. documented in this encounter Plan of Treatment Upcoming Encounters Date Type Department Care Team (Late st Contact Info) Description 01/20/2025 3:30 PM EST Office Visit [facility] GASTROENTEROLOGY [address] [place] [address] [place] [address] Robbin Escalante MD [address] [facility] [address] [place] [address] documented as of this encounter Visit Diagnoses Not on filedocumented in this encounter Additional Health Concerns Assessment Noted Time PHQ-2 Depression Total Score: 2 05/28/19 25 4:39 PM EDT documented as of this encounter Care Teams Senior Director Finance Relationship Specialty Start Date End Date Norma Friedman APRN [address] [place] [address] [place] [address] PCP - General Family Medicine 05/14/24 documented as of this encounter
--- OUTSIDE RECORDS SUMMARY | 2024-10-14 07:26 | XMS_ITS | Encounter Summary ---
[facility] Address [address] [place] [address] Care Team Providers Care Contact Center Consultant Name Role Phone Elder Norma FERNÁNDEZ Primary Care Provider + [phone] Encounter Details Date Type Department Care Team (Latest Contact Info) Description 08/19/2024 Travel Social History Tobacco Use Types Packs/Day Years Used Date Smoking Tobacco: Never Smokeless Tobacco: Never Alcohol Use Standard Drinks/Week Comments Never 0 (1 standard drink = 0.6 oz pur e alcohol) [facility] Utilities Answer Date Recorded In the past 12 months has [employer], gas, oil, or water company threatened [...] and heating? Not hard at all 05/28/2024 [facility] [place] of Occupat ional Health - Occupational Stress [...] 2:34 PM EDT Nneka Cross RN * [place] Suicide Severity Rating Scale (Screener/Recent Self-Report) Question Answer Date of Assessment Author 6. Suicidal Behavior (Lifetime) No 2:34 PM EDT Nneka Cross RN documented as of this encounter Plan of Treatment Upcoming Encounters Date Type Department Care Team (Late st Contact Info) Description 01/20/2025 3:30 PM EST Office Visit [facility] GASTROENTEROLOGY [address] [address] Robbin Escalante MD [address] [address] documented as of this encounter Visit Diagnoses Not on filedocumented in this encounter Additional Health Concerns Assessment Noted Time PHQ-2 Depression Total Score: 2 05/28/19 25 4:39 PM EDT documented as of this encounter Care Teams Contact Center Consultant Relationship Specialty Start Date End Date Norma Friedman APRN [address] [place] [address] [place] [address] PCP - General Family Medicine 05/14/24 documented as of this encounter
--- OUTSIDE RECORDS SUMMARY | 2024-10-14 07:26 | XMS_ITS | Referral Summary ---
Author Organization [employer] ([place], [place], [place], [place]) Address [address] [place] [address] Care Team Providers Care Safety And Health Consultant Name Role Phone Unavailable Primary Care [...]
--- OUTSIDE RECORDS SUMMARY | 2024-10-14 07:26 | XMS_ITS | Encounter Summary ---
[facility] Address [address] [place] [phone] Care Team Providers Care Plastic Jig And Fixture Builder Name Role Phone IvyKade goldbergjoseseven JOLENE Primary Care Provider + [phone] Encounter Details Date Type Department Care Team (Late st Contact Info) Description 09/03/2024 Results Follow-Up [facility] OBGYN [address] [place] [address] Staci Jain MD [address] [facility] [address] [place] [address] Social History Tobacco Use Types Packs/Day Years Used Date Smoking Tobacco: Never Smokeless Tobacco: Never Alcohol Use Standard Drinks/Week Comments Never 0 (1 standard drink = 0.6 oz pur e alcohol) [facility] Utilities Answer Date Recorded In the past 12 months has [employer] gas, oil, or water [employer] threatened to shut off services in your [...] 05/28/2024 [facility] of Occupat ional Health - [...] Visit [facility] GASTROENTEROLOGY [address] [address] Robbin Escalante MD [address] [address] documented as of this encounter Visit Diagnoses Not on filedocumented in this encounter Additional Health Concerns Assessment Noted Time PHQ-2 Depression Total Score: 2 05/28/19 4:39 PM EDT documented as of this encounter Care Teams Plastic Jig And Fixture Builder Relationship Specialty Start Date End Date Norma Friedman APRN [address] [place] [address] [place] [address] PCP - General Family Medicine 05/14/24 documented as of this encounter
--- OUTSIDE RECORDS SUMMARY | 2024-10-14 07:26 | XMS_ITS ---
Author Organization [facility] Address [address] [place] [address] Care Team Providers Care Crumb Packer Name Role Phone Unavailable Primary Care Provider Unavailabl e Transplant Episode Kidney Potential Donor [facility] ([place], [place]) - [facility] Referred on 05/03/2022 Marked as Deferred on 05/04/2022 Reason: Other Kidney CoordinatorNadine Augustin R.N. Phone: N/A Fax: N/A Email: N/A Care Team Name Role Phone Fax Email Nadine Augustin R.N. Kidney Coordinator N/A N/A N/A Events Pre-Donation Referred: 05/03/2022
--- OUTSIDE RECORDS SUMMARY | 2024-10-14 07:26 | XMS_ITS | Encounter Summary ---
Author Organization [employer] ([place], [place], [place], [place]) Address [address] [place] [address] Care Team Providers Care Spudder Name Role Phone Unavailable Primary Care Provider Unavailabl e Encounter Details Date Type Department Care Team (Late st Contact Info) Description 07/17/2019 Transcribed Document [facility] Family Medicine [address] [place] [address] ProviderEleno MD [address] [place], [place] [address] Social History Tobacco Use Types Packs/Day Years [...] On: 07/17/2019 19:17 EDT by KARLENE MCKINLEY wireline field operator Process Patient Disposition : AMA/Elope/LWBS KARLENE [...]
--- OUTSIDE RECORDS SUMMARY | 2024-10-14 07:26 | XMS_ITS | Encounter Summary ---
Author Organization [facility] Address [address] [place] [phone] Care Team Providers Care Tobacco Stripping Machine Operator Name Role Phone IvyKade goldbergjoseseven JOLENE Primary Care Provider + [phone] Encounter Details Date Type Department Care Team (Late st Contact Info) Description 09/26/2024 Documentation [facility] LABOR DELIVERY [address] [place] [address] Christy Zabala, RN Social History Tobacco Use Types Packs/Day Years Used Date Smoking Tobacco: Never Smokeless Tobacco: Never Alcohol Use Standard Drinks/Week Comments Never 0 (1 standard drink = 0.6 oz pur e alcohol) [facility] Utilities Answer Date Recorded In the past [...] hard at all 05/28/2024 [facility] [place] of Occupat ional Health - Occupational Stress [...] Review of chart reveals patient [facility] to [facility] to continue care. Will plan to review chart around EDC for delivery information. documented in this encounter Plan of Treatment Upcoming Encounters Date Type Department Care Team (Late st Contact Info) Description 01/20/2025 3:30 PM EST Office Visit [facility] GASTROENTEROLOGY [address] [address] Robbin Escalante MD [address] [address] documented as of this encounter Visit Diagnoses Not on filedocumented in this encounter Additional Health Concerns Assessment Noted Time PHQ-2 Depression Total Score: 2 05/28/19 25 4:39 PM EDT documented as of this encounter Care Teams Tobacco Stripping Machine Operator Relationship Specialty Start Date End Date Norma Friedman APRN [address] [place] [address] [place] [address] PCP - General Family Medicine 05/14/24 documented as of this encounter
--- OUTSIDE RECORDS SUMMARY | 2024-10-14 07:27 | XMS_ITS | Encounter Summary ---
Author Organization [facility] Address [address] [place] [address] Care Team Providers Care Calender Runner Name Role Phone Norma Friedman APRN Primary Care Provider +[phone]- [phone] Encounter Details Date Type Department Care Team [...] more drinks on one occasion? Never 09/23/2024 [place] Depression Scale Answer Date Recorded [place] Depression Scale Total 0 09/23/2024 The thought [...] 8:30 AM EDT Appointment [facility] [address] [place] [address] 10/17/2024 9:15 AM EDT Routine Medical Office Building Obstetrics and Gynecology [address] [facility] [address], [address] [place] [address] Laury Cruz MD [address] [place] [address] 10/24/2024 8:00 AM EDT Office Visit [facility] [place] [address], [address] [place] [address] Nneka Block MD [address] [place] [address] 12/25/2024 1:00 PM EST Office Visit [facility] Nephrology, Bone & Mineral Metabolism [address], [address] [place] [address] documented as of this encounter Visit Diagnoses Not on filedocumented in this encounter Additional Health Concerns Assessment Noted Time A Body Mass Index follow-up plan has been documented for the patient 09/23/2024 8:28 PM EDT documented as of this encounter Care Teams Calender Runner Relationship Specialty Start Date End Date Norma Friedman APRN [address] [place] [address] PCP - General 09/23/24 documented as of this encounter
--- OUTSIDE RECORDS SUMMARY | 2024-10-14 07:27 | XMS_ITS | Encounter Summary ---
Author Organization [facility] Address [address] [place] [address] Care Team Providers Care Environmental Construction Engineer Name Role Phone Norma Friedman CAMPUS RECRUITER Primary Care Provider +1- [phone] Lizz Trinh RN Unavailable Unavailable Encounter Details [...] more drinks on one occasion? Never 09/23/2024 [employer] Depression Scale Answer Date Recorded [employer] Depression Scale Total 0 09/23/2024 The thought [...] Appointment [facility] Ultrasound [address] [place] [address] 10/17/2024 9:15 AM EDT Routine Medical Office Building Obstetrics and Gynecology [address] [facility], [address] [place] [address] Laury Cruz MD [address] [place] [address] 10/24/2024 8:00 AM EDT Office Visit [facility] [place] [address] [facility], [address] [place] [address] Nneka Block MD [address] [place] [address] 12/25/2024 1:00 PM EST Office Visit [facility] Nephrology, Bone & Mineral Metabolism [address] [facility], [address] [place] [address] documented as of this encounter Visit Diagnoses Not on filedocumented in this encounter Additional Health Concerns Assessment Noted Time A fall risk assessment has been complete d for the patient 09/26/2024 8:15 AM EDT A Body Mass Index follow-up plan has been documented for the patient 09/27/2024 10:22 AM EDT documented as of this encounter Care Teams Environmental Construction Engineer Relationship Specialty Start Date End Date Norma Friedman APRN [address] [place] [address] PCP - General 09/23/24 Lizz Trinh, RN [facility] Registered Nurse Cardiology 09/26/24 documented as of this encounter
--- OUTSIDE RECORDS SUMMARY | 2024-10-14 07:27 | XMS_ITS | Encounter Summary ---
Author Organization [facility] Address [address] [place] [id number] Care Team Providers Care Immigration Inspector Name Role Phone Unavailable Primary Care Provider Unavailabl e Encounter Details Date Type Department Care Team (Late st Contact Info) Description 09/17/2024 Telephone Medical Office Building Obstetrics and Gynecology [address] [facility], [address] [place] [address] Josefina Shay RN [facility] [address] [place] [address] Social History Tobacco Use Types Packs/Day Years [...] recently had a full Nephrology work-up at [facility] that was negative and was not [...] Info) Description 10/17/2024 8:30 AM EDT Appointment [facility] Ultrasound [address] [place] [address] 10/17/2024 9:15 AM EDT Routine Medical Office Building Obstetrics and Gynecology [address] [facility], [address] [place] [address] Laury Cruz MD [address] [facility] [address] [place] [address] 10/24/2024 8:00 AM EDT Office [facility] [place] [address] [facility], [address] [place] [address] Nneka Block MD [address] [place] [address] 12/25/2024 1:00 PM EST Office Visit [facility] [place] Nephrology, Bone & Mineral Metabolism [address] [facility], [address] [place] [address] documented as of this encounter Visit Diagnoses Not on filedocumented in this encounter
--- OUTSIDE RECORDS SUMMARY | 2024-10-14 07:27 | XMS_ITS | Clinical Summary ---
Author Organization Healthcare Address [address] [place] [address] Care Team Providers Care Contract Management Specialist Name Role Phone Norma Friedman JOLENE Primary Care Provider +1- [phone] Lizz Trinh RN Unavailable Unavailable Allergies Active [...] dermatitis with skin contact Medications Prenat MV-Min w/Ys-Dfvbxw-ODM ( COMPLETE PO) Active potassium chloride CR [...] chew. 60 tablet 1 025 2024 Discontinued Uwjkryri-Eut-Gz-F A ( 1 + IRON PO) 2024 Discontinued Active Problems Problem Noted Date Diagnosed Date Hypokalemia 09/25/2024 Estimated Date of Delivery Comme nts Yes 12/01/2024 Encounters Date Type Department Care Team Description 09/26/2024 9:06 AM EDT - 09/26/2024 11:59 PM EDT Hospital Encounter Medical Office Building Cardiac Diagnostic Testing Medical Office Building Echo Lab [address], [address] [place] [address] Palpitations; Syncope and collapse Discharge Disposition: Home or Self Care 09/26/2024 8:00 AM EDT Office Visit [facility] [place] [address], [address] [place] [address] Dilip Vasquez MD Syncope and collapse (Primary Dx); Atrial fibrillation, unspecified type (CMS/HCC); Palpitations 09/26/2024 Travel 09/25/2024 2:20 PM EDT Office Visit [facility] Nephrology, Bone & Mineral Metabolism [address], [address] [place] [address] Bill Patrick MD Hypokalemia (Primary Dx) 09/25/2024 Travel 09/23/2024 10:00 AM EDT Office Visit Medical Office Building Obstetrics and Gynecology [address], [address] [place] [address] Liborio Weller MD Supervision of high risk , antepartum (Primary Dx); Cardiac arrhythmia, unspecified cardiac arrhythmia type 09/23/2024 Travel 09/17/2024 Telephone [facility] Nephrology, Bone & Mineral Metabolism [address], [address] [place] [address] Sherley Gold CNA 09/17/2024 Telephone Medical Office Building Obstetrics and Gynecology [address], [address] [place] [address] Josefina Shay RN 09/14/2024 Telephone [facility] Obstetrics & Gynecology [address] [place] [address] Susi Wren MD 07/22/2024 [facility] [address] [place] [address] Staci Jain MD History of proteinuria syndrome (Primary Dx); care, subsequent , second trimester 07/22/2024 [facility] [address] [place] [address] Sandy Cardenas MD from Last 3 Months [...] more drinks on one occasion? Never 09/23/2024 [place] Depression Scale Answer Date Recorded [place] Depression Scale Total 0 09/23/2024 The thought [...] Info) Description 10/17/2024 8:30 AM EDT Appointment [facility] Ultrasound [address] [place] [address] 10/17/2024 9:15 AM EDT Routine Medical Office Building Obstetrics and Gynecology [address], [address] [place] [address] Laury Cruz MD [address] [place] [address] 10/24/2024 8:00 AM EDT Office Visit [facility] [place] [address], [address] [place] [address] Dilip Vasquez MD [address] [place] [address] 12/25/2024 1:00 PM EST Office Visit [facility] Nephrology, Bone & Mineral Metabolism [address], [address] [place] [address] Health Maintenance Due Date Last Done Comments [facility]-/Child/Adol SDOH Screenings 1991 [facility]-Varicella Vaccines (1 of 2 - 13+ 2-dose series) 2004 [facility]- SDOH Screenings 2009 [facility]-Adult SDOH Screenings 2009 [facility]-Hepatitis B Vaccines (1 of 3 - 19+ 3-dose series) 2010 [facility]-Pap Smear 2012 [facility]-Cervical Cancer Screening 2021 [facility]-HPV/Cotest 2021 DPS-QLFJM-81 Vaccine (2 - 2024- season) 2024 05/04/2022 [...] MD LAB URINE ORDERABLES Final Resul t [facility] [address] [place] [address] * Protein, Random, Urine with Creatinine (09/26/2024 10:03 AM EDT) Protein, Urine 26 mg/dL 09/26/2024 12:08 PM EDT [facility] Creatinine, Urine 199 mg/dL 09/26/2024 12:08 PM EDT [facility] Protein/Creati nine Ratio 0.1 mg/mg Creat 09/26/2024 12:08 PM EDT [facility] Urine Urine specimen obtained by clean catch procedure / Unknown Non-blood Collection / Unknown 09/26/2024 10:03 AM EDT 09/26/2024 10:04 AM EDT us Bill Patrick MD LAB URINE ORDERABLES Final Resul t Performing Organization Address City/[facility]/ZIP Co de Phone Number [facility] [address] [place] [address] * Sodium, urine, random (09/26/2024 10:02 AM EDT) Sodium, Urine 110 mmol/L 09/26/2024 11:55 AM EDT [facility] Urine Urine specimen obtained by clean catch procedure / Unknown Non-blood Collection / Unknown 09/26/2024 10:02 AM EDT 09/26/2024 10:02 AM EDT us Bill Patrick MD LAB URINE ORDERABLES Final Resul t Performing Organization Address City/[facility] Co de Phone Number [facility] [address] [place] [address] * Potassium, urine, random (09/26/2024 10:02 AM EDT) Potassium, Urine 43 mmol/L 09/26/2024 11:55 AM EDT [facility] Urine Urine specimen obtained by clean catch procedure / Unknown Non-blood Collection / Unknown 09/26/2024 10:02 AM EDT 09/26/2024 10:02 AM EDT us Bill Patrick MD LAB URINE ORDERABLES Final Resul t Performing Organization Address [facility] de Phone Number [facility] [address] [place] [address] * Osmolality, urine (09/26/2024 10:02 AM EDT) Osmolality, Urine 404 50 - 1,200 mOsm/kg 09/26/2024 1:48 PM EDT [facility] Urine Urine specimen obtained by clean catch procedure / Unknown Non-blood Collection / Unknown 09/26/2024 10:02 AM EDT 09/26/2024 10:02 AM EDT us Bill Patrick MD LAB URINE ORDERABLES Final Resul t Performing Organization Address City/[facility] Co de Phone Number [facility] [address] [place] [address] * SSA 52 and 60 (Ro) (YARA) Antibodies, IgG (09/26/2024 9:32 AM EDT) SSA-52 (RO52) (YARA) Antibody, IgG 2 0 - 40 AU/mL 09/28/2024 5:47 PM EDT [facility] ([facility]) SSA-60 (RO60) (YARA) Antibody, IgG 0 0 - 40 AU/mL 09/28/2024 5:47 PM EDT [facility] ([facility]) Serum 09/26/2024 9:32 AM EDT 09/26/2024 9:32 AM EDT Narrative [facility] ([facility]) - 09/28/2024 5:47 [...] AU/mL or Greater .......... Positive Performed By: [employer] [address] [place] [address] Rope Coiling Machine Operator: Brandon Bell MD, PhD CLIA Number: [id number] us Bill Patrick MD LAB REF LAB BLOOD AND FLUID ORD Final Result [facility] ([employer]) [address] [place] [address] * SSB (LA) (YARA) ANTIBODY, IGG (09/26/2024 9:32 AM EDT) SSB (LA) (YARA) Antibody, IgG 0 0 - 40 AU/mL 09/28/2024 5:47 PM EDT [facility] Serum Venous blood specimen / Unknown 09/26/2024 9:32 AM EDT 09/26/2024 9:32 AM EDT Narrative [facility]) - 09/28/2024 5:47 PM EDT INTERPRETIVE [...] (PSS) also have this antibody. Performed By: [employer] [address] [place] [address] Rope Coiling Machine Operator: Brandon Bell MD, PhD CLIA Number: [id number] us Bill Patrick MD LAB BLOOD ORDERABLES Final Resul t Performing Organization Address City/[facility] Co de Phone Number [facility] [address] [place] [address] * Rheumatoid factor, plasma (09/26/2024 9:32 AM EDT) Pathologist [facility] Rheumatoid Factor, Plasma <10 <14 IU/mL 09/26/2024 1:49 PM EDT [facility] Blood Venous blood specimen / Unknown Venipuncture / Unknown 09/26/2024 9:32 AM EDT 09/26/2024 9:32 AM EDT Bill Patrick MD LAB BLOOD ORDERABLES Final Resul t [facility] [address] [place] [address] * Antinuclear Antibody (JEFFERY), HEp-2, IgG (09/26/2024 9:32 AM EDT) JEFFERY INTERPRETIVE COMMENT See Note 09/28/2024 5:13 PM EDT [facility] ([facility]) Anti Nuc Ab Screen <1:80 <1:80 09/28/2024 5:13 PM EDT [facility] ([facility]) Blood Venous blood specimen / Unknown Venipuncture / Unknown 09/26/2024 9:32 AM EDT 09/26/2024 9:32 AM EDT Narrative [facility] ([facility]) - 09/28/2024 5:13 [...] rings, and cytoplasmic speckled patterns. Performed By: [employer] [address] [place] [id number] Rope Coiling Machine Operator: Brandon Bell MD, PhD CLIA Number: [id number] Bill Patrick MD LAB BLOOD ORDERABLES Final Resul t [facility] [employer]) [address] [place] [address] * (ABNORMAL) Osmolality (09/26/2024 9:32 AM EDT) Osmolality, Serum 273(L) 275 - 295 mOsm/Kg 09/26/2024 2:10 PM EDT [facility] Blood Venous blood specimen / Unknown Venipuncture / Unknown 09/26/2024 9:32 AM EDT 09/26/2024 9:32 AM EDT us Bill Patrick MD LAB BLOOD ORDERABLES Final Resul t [facility] [address] [place] [address] * (ABNORMAL) Renal function panel (09/26/2024 9:32 AM EDT) Glucose, Plasma 87 74 - 99 mg/dL 09/26/2024 12:24 PM EDT [facility] BUN, Plasma 5(L) 7 - 21 mg/dL 09/26/2024 12:24 PM EDT [facility] Creatinine, Plasma 0.72 0.60 - 1.10 mg/dL 09/26/2024 12:24 PM EDT [facility] BUN/Creatinine Ratio 7 09/26/2024 12:24 PM EDT [facility] Sodium, Plasma 135(L) 136 - 145 mmol/L 09/26/2024 12:24 PM EDT [facility] Potassium, Plasma 3.1(L) 3.6 - 4.9 mmol/L 09/26/2024 12:24 PM EDT [facility] Chloride, Plasma 95(L) 97 - 107 mmol/L 09/26/2024 12:24 PM EDT [facility] CO2, Plasma 26 22 - 29 mmol/L 09/26/2024 12:24 PM EDT [facility] Anion Gap 14 6 - 16 mmol/L 09/26/2024 12:24 PM EDT [facility] Total Calcium, Plasma 9.4 8.9 - 10.2 mg/dL 09/26/2024 12:24 PM EDT [facility] Phosphorus, Plasma 3.5 2.5 - [...] BLOOD ORDERABLES Final Resul t [facility] [address] [place] [address] * Adult Patch Monitor - 7 Day [...] bpm on Day 3 :47:57 pm SVE(s): [place] was 3.46 %, [id number] total SVE(s) SV Arrhythmia(s): 21 events, longest event 7 beats on Day :05:26 am, fastest event 111 bpm on :02:39 am PVC(s): [place] was 0.03 %, 189 total PVC(s), 1 [...] QTC Interval 441 ms MUSE ECG P [place] 60 degrees MUSE ECG R [place] 36 degrees MUSE ECG T Wave [place] 55 degrees MUSE ECG Diagnosis Normal sinus rhythm with sinus arrhythmia MUSE ECG Diagnosis Normal ECG MUSE ECG Diagnosis MUSE ECG Diagnosis Confirmed by Abad South ([id number]) on 09/26/2024 12:13:59 PM MUSE ECG 09/26/2024 8:21 AM EDT 09/26/2024 12:13 PM EDT Dilip Vasquez MD ECG ORDERABLES Final Resu lt MUSE ECG * (ABNORMAL) POCT Urinalysis Dipstick (09/23/2024 10:54 AM EDT) POCT Urine Color Yellow POCT Urine Clarity Clear POCT Glucose Urine Negative Negative mg/dL POCT Bilirubin, Urine Small(A) Negative POCT Ketones, Urine 40(A) Negative mg/dL POCT Specific [place], Urine 1.015 POCT Blood, Urine Negative Negative POCT pH, Urine >=9.0(A) 5.0 to 8.0 POCT Protein, Urine 100(A) Negative mg/dL POCT Urobilinogen, Urine 0.2 0.2, 1 E.U./dL POCT Nitrite, Urine Negative Negative POCT Leukocyte Esterase, Urine Negative Negative Test Strip Lot Number [id number] Test Strip Lot Expiration 07/2025 Urine Urine specimen obtained by clean catch procedure / Unknown 09/23/2024 10:54 AM EDT Liborio Weller MD POINT OF CARE TEST ENTER/EDIT ORDERABLES Edited Result - Final * HIV 1 & 2 Antibody/Antigen Screen (01/22/2019 9:57 AM EST) Pathologist [facility] HIV 1 Result NONREACTIVE Screening for HIV 1 and 2 antibodies is NONREACTIVE. No confirmatory testing is required. [facility] 01/22/2019 9:57 AM EST 01/22/2019 12:12 PM EST Pradip Damico APRN, CNM LAB BLOOD ORDERABLES Fin al Result Performing Organization Address City/State/[facility] Co de Phone Number [facility]QUEST * Hepatitis C Antibody (01/22/2019 9:57 AM EST) Pathologist [facility] Hepatitis C Antibody NEGATIVE Reference Range: Negative [facility] 01/22/2019 9:57 AM EST 01/22/2019 12:12 PM EST Pradip Damico APRN, CNM LAB BLOOD ORDERABLES Fin al Result [facility]QUEST from Last 3 Months or Most Recently Relevant to Health Maintenance Insurance [employer] [facility] MEDICAID Care Teams Contract Management Specialist Relationship Specialty Start Date End Date Norma Friedman APRN [address] [place] [address] PCP - General 09/23/24 Lizz Trinh, RN [facility] Registered Nurse Cardiology 09/26/24
--- OUTSIDE RECORDS SUMMARY | 2024-10-14 07:27 | XMS_ITS | Encounter Summary ---
Author Organization Healthcare Address [address] [place] [address] Care Team Providers Care Paste Mixing Supervisor Name Role Phone Unavailable Primary Care Provider Unavailabl e Encounter Details Date Type Department Care Team (Late st Contact Info) Description 09/17/2024 Telephone [facility] Nephrology, Bone & Mineral Metabolism [address], [address] [place] [address] Sherley Gold, LAMINA SEARCHER GS - 7 MAIN MEDICAL-SURGICAL Social History [...] 8:30 AM EDT Appointment [facility] Ultrasound [address] [place] [address] 10/17/2024 9:15 AM EDT Routine Medical Office Building Obstetrics and Gynecology [address], [address] [place] [address] Laury Cruz MD [address] [place] [address] 10/24/2024 8:00 AM EDT Office Visit [facility] [place] [address], [address] [place] [address] Nneka Block MD [address] [place] [address] 12/25/2024 1:00 PM EST Office Visit [facility] Nephrology, Bone & Mineral Metabolism [address], [address] [place] [address] documented as of this encounter Visit Diagnoses Not on filedocumented in this encounter
--- OUTSIDE RECORDS SUMMARY | 2024-10-14 07:27 | XMS_ITS | Encounter Summary ---
[facility] Address [address] [place] [id number] Care Team Providers Care Rug Weaver Name Role Phone Elder Norma FERNÁNDEZ Primary Care Provider + [phone] Encounter Details Date Type Department Care Team (Late st Contact Info) Description 07/07/2024 Results Follow-Up [facility] OBGYN [address] [place] [address] [place] [id number] Kelly Delgado APRN [address] [place] [address] Social History Tobacco Use Types Packs/Day Years Used Date Smoking Tobacco: Never Smokeless Tobacco: Never Alcohol Use Standard Drinks/Week Comments Never 0 (1 standard drink = 0.6 oz pur e alcohol) [facility] Utilities Answer Date Recorded In the past 12 months has [employer], gas, oil, or water [employer] threatened to shut off services in your [...] Visit [facility] GASTROENTEROLOGY [address] [facility] [address] Robbin Escalante MD [address] [address] documented as of this encounter Visit Diagnoses Not on filedocumented in this encounter Additional Health Concerns Assessment Noted Time PHQ-2 Depression Total Score: 2 05/28/19 25 4:39 PM EDT documented as of this encounter Care Teams Rug Weaver Relationship Specialty Start Date End Date Norma Friedman APRN [address] [place] [address] [place] [address] [place] [address] PCP - General Family Medicine 05/14/24 documented as of this encounter
--- OUTSIDE RECORDS SUMMARY | 2024-10-14 07:27 | XMS_ITS | Encounter Summary ---
Author Organization Healthcare Address [address] [place] [address] Care Team Providers Care Valet Manager Name Role Phone Norma Friedman APRN Primary Care Provider [phone]- [phone] Encounter Details Date Type Department Care Team [...] more drinks on one occasion? Never 09/23/2024 [place] Depression Scale Answer Date Recorded [place] Depression Scale Total 0 09/23/2024 The thought [...] 10/17/2024 8:30 AM EDT Appointment [facility] Ultrasound [address] [place] [address] 10/17/2024 9:15 AM EDT Routine Medical Office Building Obstetrics and Gynecology [address] [facility] [facility], [address] [place] [address] Laury Cruz MD [address] [facility] [address] [place] [address] 10/24/2024 8:00 AM EDT Office Visit [facility] [place] [address] [facility], [address] [place] [address] Nneka Block MD [address] [place] [address] 12/25/2024 1:00 PM EST Office Visit [facility] Nephrology, Bone & Mineral Metabolism [address] [facility], [address] [place] [address] documented as of this encounter Visit Diagnoses Not on filedocumented in this encounter Additional Health Concerns Assessment Noted Time A fall risk assessment has been complete d for the patient 09/25/2024 3:05 PM EDT A Body Mass Index follow-up plan has been documented for the patient 10/05/2024 8:54 PM EDT documented as of this encounter Care Teams Valet Manager Relationship Specialty Start Date End Date Norma Friedman APRN [address] [place] [address] PCP - General 09/23/24 documented as of this encounter
--- OUTSIDE RECORDS SUMMARY | 2024-10-14 07:27 | XMS_ITS | Encounter Summary ---
Author Organization Healthcare Address [address] [place] [address] Care Team Providers Care Conference Translator Name Role Phone Unavailable Primary Care Provider Unavailabl e Reason for Referral * Consultation (Routine) - Closed Specialty Diagnoses / Procedures Referred By Contac t Referred To Contact Nephrology Diagnoses Hypokalemia Liborio Weller MD [address] [place] [address] Phone: tel: fax: [facility] Nephrology, Bone & Mineral Metabolism [address] [place] [address] Phone: tel: fax: Referral ID Status Reason Start Date Expiration Date V isits Requested Visits Authorized [id number] Closed Specialty Services Required 09/14/2024 03/16/2026 1 1 Scheduling Instructions Severe hypokalemia in the setting of Encounter Details Date Type Department Care Team (Late st Contact Info) Description 09/14/2024 Telephone [facility] Obstetrics & Gynecology [address] [place] [address] Susi Wren MD [address] [place] [address] Social History Tobacco Use Types [...] had an outpatient workup with Nephrology at [facility] [place] that was negative, she was not amenable [...] Description 10/17/2024 8:30 AM EDT Appointment [facility] Ultrasound [address] [place] [address] 10/17/2024 9:15 AM EDT Routine Medical Office Building Obstetrics and Gynecology [address] [facility] [facility] [place] [address] Laury Cruz MD [address] [facility] [address] [place] [address] 10/24/2024 8:00 AM EDT Office Visit [facility] [place] [address], [address] [place] [address] Nneka Block MD [address] [place] [address] 12/25/2024 1:00 PM EST Office Visit [facility] Nephrology, Bone & Mineral Metabolism [address] [facility] [facility], [address] [place] [address] Scheduled Referrals Name Type Priority Associated Diagnoses Order Schedule Ambulatory referral to Nephrology Clinic Outpatient Referral Routine Hypokalemia 1 Occurrences starting 09/14/2024 until 03/18/2026 documented as of this encounter Visit Diagnoses Diagnosis Hypokalemia- Primary Hypopotassemia documented in this encounter
--- NOTE | 2024-10-14 08:00 | US_ITS ---
PROCEDURE: US OB FOLLOW UP CLINICAL INDICATION: Growth SD Ratio COMPARISON: US US OB TRANSVAGINAL from 09/19/2024 US US OB BIOPHYSICAL PROFILE from 09/19/2024 FINDINGS: Transabdominal sonographic images of the uterus were obtained. From her established due date she is 33weeks 1day. The following parameters are obtained: Viable Fetus in the cephalic presentation with an anterior placenta grade 1-2. Average ultrasound age is 31weeks 6days Estimated weight 1,816g, 4 lb 0 oz The cervix measures 2.61 cm in length. Measurements: heart Rate = 134bpm BPD = 30weeks 6days, <2 percentile HC = 33weeks 0 days, 12 percentile AC = 32weeks 0 days, 18 percentile FL = 31weeks 1day, 4 percentile HC/AC is 1.07 FL/BPD is 0.78 FL/AC is 0.21 9 percentile Amniotic fluid index: 12.63cm, MVP 5.55 cm Doppler evaluation of the umbilical artery: SD ratio: 1.79-2.36 normal Resistive index: 0.58 No obvious anomalies evident.Kidneys, profile, stomach, bladder, four-chamber heart, three-vessel cord appear normal. IMPRESSION: 1. Viable fetus in the cephalic presentation with an anterior placenta grade 1-2. 2. The fluid is within normal limits with an amniotic fluid index 12.63 cm, MVP 5.55 cm. 3. Biophysical profile was not done but breathing movement and movement were seen. 4. The fetus has shown good interval growth but continues to be small for gestational is at 9th percentile. Four weeks ago the fetus was 11th percentile. 5. SD ratio is normal 1.79-2.36. 6. Limited anatomical scan appears normal. Dictated by: Boby Ramon MD 10/15/2024 09:37 Boby Ramon MD in OV 10/15/2024 09:37
[2024-10-14 08:33] LABS: Albumin Level 3.4 g/dl (3.5-5.0); Chloride 93 mmol/L (98-107); Potassium 3.1 mmoL/L (3.5-5.1); Sodium 131 mmol/L (136-145)
[2024-10-14 08:35] LABS: Blood Urea Nitrogen 7 mg/dl (7-17); Creatinine,Serum 0.70 mg/dl (0.52-1.04); Estimated Glomerular Filt Rate 96 ml/min (>60); GFR (African American) 117 ML/MIN (>60)
[2024-10-14 08:36] LABS: Alanine Aminotransferase 92 U/L (12-78); Alkaline Phosphatase 98 U/L (38-126); Anion Gap 12.1 mEq/L (5-15); Aspartate Amino Transferase 161 U/L (14-36); Bilirubin,Total 0.7 mg/dl (0.2-1.3); Carbon Dioxide 29 mmol/L (22.0-30.0)
[2024-10-14 09:15] LABS: Albumin/Globulin Ratio 1.2 (1.1-1.8); Calcium 9.5 mg/dl (8.4-10.2); Globulin 2.9 g/dL (1.3-3.2); Glucose 139 mg/dl (74-100); Magnesium 1.1 mg/dl (1.6-2.3); Total Protein,Serum 6.3 g/dl (6.3-8.2)
--- NOTE | 2024-10-14 11:28 | XR_ITS ---
FINAL REPORT TECHNIQUE: Single view chest CLINICAL HISTORY: PICC line placement pt shielded, 38 weeks COMPARISON: 10/12/2024 FINDINGS: A single view of the chest was obtained. There has been interval placement of a right PICC with the tip at the cavoatrial junction. The heart and mediastinum are within normal limits. The lungs are clear. There is no pneumothorax. IMPRESSION: No acute cardiopulmonary process. Interval placement of right PICC with the tip at the cavoatrial junction. Reviewed, Interpreted and Dictated by Jolene Castellon MD Transcribed by Elizabeth Pascual Authenticated and [facility]
--- NOTE | 2024-10-14 11:50 | PC.NURSE ---
1150-rad here for stat chest xray for picc placement.
--- NOTE | 2024-10-14 12:30 | PC.NURSE ---
1230-confirm picc placement per radiology; ok to proceed
[2024-10-14] MEDS: MAGNESIUM SULFATE IN WATER 2 GM/50 ML PIGGYBACK IV ×3 (12:48→14:56)
[2024-10-14 12:53] VITALS: BP 102/53; PULSE 112; RESP 18; O2SAT 99
[2024-10-14] MEDS: ONDANSETRON 4MG/2ML VIAL 4 MG IV (13:20)
[2024-10-14 13:50] VITALS: BP 102/67; PULSE 94; RESP 18; O2SAT 97
[2024-10-14 14:58] VITALS: BP 103/63; PULSE 105; RESP 18; O2SAT 98
[2024-10-14 15:00] VITALS: BP 105/62; PULSE 94; RESP 18; O2SAT 99
[2024-10-14 16:27] VITALS: BP 95/71; PULSE 115; RESP 18; O2SAT 98
== END 2024-10-14 16:27 | disposition home or self-care (01) ==
LOC: RAD 07:23 → INF 10:43
PROVIDERS: Nurse Practitioner Obstetrics & Gynecology; PCP Nurse Practitioner Family; Visit Provider Obstetrics & Gynecology
DX: O12.13 Gestational proteinuria, third trimester (principal); O26.893 Other specified pregnancy related conditions, third trimester; O34.43 Maternal care for other abnormalities of cervix, third trimester; O99.413 Diseases of the circulatory system complicating pregnancy, third trimester; O26.613 Liver and biliary tract disorders in pregnancy, third trimester; L29.9 Pruritus, unspecified; E87.6 Hypokalemia; I34.0 Nonrheumatic mitral (valve) insufficiency; R74.8 Abnormal levels of other serum enzymes; Z3A.28 28 weeks gestation of pregnancy
CPT/HCPCS: 36410; 36415; 36569; 71045; 76816; 76820; 80053; 83735; 87077; 96365; 96366; 96367; 96375; 96376; C1751; J2405; J3475; J3480

== ENCOUNTER 2024-10-16 08:49 | Outpatient (CLI) | payer OTHER, SELFPAY ==
--- OUTSIDE RECORDS SUMMARY | 2024-08-19 10:15 | XMS_ITS | Encounter Summary ---
[facility] [address] [place] [address] Care Team Providers Care Insurance Business Analyst Name Role Phone Norma Friedman APRN Primary Care Provider + [phone] Reason for Visit * Reason Comments Routine Visit Encounter Details Date Type Department Care Team (Late st Contact Info) Description 08/19/2024 10:15 AM EDT Routine [facility] OBGYN [address] [place] [address] Jacey Mathews, C D AREA SUPERVISOR [address] [place] [address] GA: 25w1d Social History Tobacco Use Types Packs/Day Years Used Date Smoking Tobacco: Never Smokeless Tobacco: Never Alcohol Use Standard Drinks/Week Comments Never 0 (1 standard drink = 0.6 oz pur e alcohol) [facility] Utilities Answer Date Recorded In the past 12 months has [employer], gas, oil, or water [employer] threatened to shut off services in your [...] 05/28/2024 [facility] [place] [facility]al Health - Occupational Stress [...] GED or equivalent No 05/28/2024 Preferred Language Albanian 05/28/2024 PHQ-2 Answer Date Recorded Patient Health [...] this encounter Progress Notes * Jacey Mathews, C D AREA SUPERVISOR - 08/19/2024 10:15 AM EDT Images from [...] [facility] GASTROENTEROLOGY [address] [facility] [address] [place] [address] Robbin Escalante MD [address] [facility] [address] [place] [address] documented as of this encounter Visit Diagnoses Diagnosis Vaginal bleeding in - Primary 25 weeks gestation of documented in this encounter Additional Health Concerns Assessment Noted Time PHQ-2 Depression Total Score: 2 05/28/19 25 4:39 PM EDT documented as of this encounter Care Teams Insurance Business Analyst Relationship Specialty Start Date End Date Norma Friedman APRN [address] [place] [address] [place] [address] PCP - General Family Medicine 05/14/24 documented as of this encounter
--- OUTSIDE RECORDS SUMMARY | 2024-08-19 13:59 | XMS_ITS | Encounter Summary ---
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 Role Phone Ivyashlyn Norma FERNÁNDEZ Primary Care Provider + [phone] Reason for Visit * Reason Comments Vaginal Bleeding * Auth/Cert (Routine) Specialty Diagnoses / Procedures Referred By Contleyla t Referred To Contact Referral ID Status Reason Start Date Expiration Date Visits Re quested Visits Authorized [id number] 1 1 Encounter Details Date Type Department Care Team (Late st Contact Info) Description 08/19/2024 1:59 PM EDT - 08/20/2024 4:28 PM EDT Hospital Encounter [facility] [address] [place] [id number] Rob Wharton MD [address] [facility] [address] [place] [address] Blu Alvarado MD [address] [facility] [address] [place] [address] Dysphagia, unspecified type (Primary Dx) Discharge Disposition: Home or Self Care Social History Tobacco Use Types Packs/Day Years Used Date Smoking Tobacco: Never Smokeless Tobacco: Never Alcohol Use Standard Drinks/Week Comments Never 0 (1 standard drink = 0.6 oz pur e alcohol) [facility] Utilities Answer Date Recorded In the past 12 months has [employer], gas, oil, or water [employer] threatened to shut off services in your [...] and heating? Not hard at all 05/28/2024 [facility] of Occupat ional Health - Occupational Stress [...] GED or equivalent No 05/28/2024 Preferred Language Emirati 05/28/2024 PHQ-2 Answer Date Recorded Patient Health [...] 1:23 PM EDT Polly Lacey RN * [place] Suicide Severity Rating Scale (Screener/Recent Self-Report) Question [...] through Care Everywhere. * Second Trimester of (Emirati) * Upper Endoscopy Adult Care After (Emirati) documented in this encounter Medications at Time [...] 08/19/2024 RH Positive 08/19/2024 ABSCRN Negative 08/19/2024 [id number] non-reactive 04/12/2024 HEPCVIRUSABY negative 04/12/2024 URINECX Final [...] IUPC: Resting Tone: Resting Tone by IUPC: [place] Units: Cervix: Exam by: Method: sterile vaginal [...] her third trimesters prior pregnancies(etiology unknown). 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 She states [...] IUPC: Resting Tone: Resting Tone by IUPC: [place] Units: Laboratory Results: Lab Results (last 24 [...] AM EDTAssociated Order(s): IP CONSULT TO [place] [facility] Referring Provider: Dr. [...] expresses concern regarding recent CT scan at [facility] revealing a hiatal hernia. CT scan done prior to most recent due to ovarian cyst and incidentally revealed hiatal hernia. She reports chronic gastrointestinal symptoms. Review of medical record revealed prior GI referral due to blood per rectum. She reports colonoscopy in 2020 at outside facility that revealed diverticulosis and benign colon polyp. She is currently established with provider at [facility] for gastroenterology care she reports [...] , await recommendations following EGD - consider DISTRIBUTION LEAD evaluation if no etiology for difficulty swallowing [...] her third trimesters prior pregnancies(etiology unknown). 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 She states [...] IUPC: Resting Tone: Resting Tone by IUPC: [place] Units: Laboratory Results: Lab Results (last 24 [...] 01/20/2025 3:30 PM EST Office Visit [facility] [address] [facility] [phone] Robbin Escalante MD [address] [facility] [address] documented as of this encounter Procedures Procedure Name Priority Date/Time Associated Diagnosis Comments TISSUE PATHOLOGY EXAM Routine 08/20/2024 1:55 PM EDT Dysphagia, unspecified type ID ESOPHAGOGASTRODUODENOSCOP Y TRANSORAL DIAGNOSTIC 08/20/2024 1:44 PM EDT Dysphagia, unspecified type UPPER GI ENDOSCOPY 08/20/2024 1:09 PM EDT BASIC METABOLIC PANEL STAT 08/20/2024 5:25 AM EDT POTASSIUM STAT 08/19/2024 8:53 PM EDT ABORH 2ND SPECIMEN VERIFICATION STAT 08/19/2024 4:34 PM EDT NONSTRESS TEST Routine 08/19/2024 4:17 PM EDT [facility] Routine 08/19/2024 3:25 PM EDT [...] EDT) Case Report Surgical Pathology Report Case: [id number] Authorizing Provider: Blu Alvarado MD Collected: 08/20/2024 01:55 PM Ordering Location: [facility] Received: 08/20/2024 02:14 PM ENDO SUITES Pathologist: Khalida Rhoades DO Specimen: Gastric, Antrum, antrum bx for path 08/22/2024 9:18 AM EDT [facility] Clinical Information Dysphagia, unspecified type 08/22/2024 9:18 AM EDT [facility] Final Diagnosis Stomach, antrum, biopsy: 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 pylori is negative (no organisms are identified) Negative for intestinal metaplasia, dysplasia, or malignancy 08/22/2024 9:18 AM EDT [facility] at 0918 EDT Gross Description 1. Gastric, Antrum. Received in formalin labeled antrum biopsy is a 0.4 x 0.2 x 0.2 cm pink-see soft tissue fragment submitted entirely in a single cassette. HDM 08/22/2024 9:18 AM EDT [facility] Microscopic Description The slides are reviewed and demonstrate histopathologic features supporting the above rendered diagnosis. 08/22/2024 9:18 AM EDT [facility] Tissue Pyloric antrum structure / Unknown 08/20/2024 1:55 PM EDT 08/20/2024 2:14 PM EDT us Blu Alvarado MD PATHOLOGY/CYTOLOGY ORDERABLES Final Result [facility]
[address] [place] [address], * Upper GI Endoscopy (08/20/2024 1:09 PM EDT) us Blu Alvarado MD INTERFACE NEEDS Final Result * (ABNORMAL) Basic Metabolic Panel (08/20/2024 5:25 AM EDT) Glucose 84 65 - 99 mg/dL 08/20/2024 6:13 AM EDT [facility] BUN 2.3(L) 6.0 - 20.0 mg/dL 08/20/2024 6:13 AM EDT [facility] Creatinine 0.51(L) 0.57 - 1.00 mg/dL 08/20/2024 6:13 AM EDT [facility] Sodium 139 136 - 145 mmol/L 08/20/2024 6:13 AM EDT [facility] Potassium 3.5 3.5 - 5.2 mmol/L 08/20/2024 6:13 AM EDT [facility] Chloride 109(H) 98 - 107 mmol/L 08/20/2024 6:13 AM EDT [facility] CO2 23.5 22.0 - 29.0 mmol/L 08/20/2024 6:13 AM EDT [facility] Calcium 7.8(L) 8.6 - 10.5 mg/dL 08/20/2024 6:13 AM EDT [facility] BUN/Creatinine Ratio 4.5(L) 7.0 - 25.0 08/20/2024 6:13 AM EDT [facility] Anion Gap 6.5 5.0 - 15.0 mmol/L 08/20/2024 6:13 AM T [facility] eGFR 126.6 >60.0 mL/min/1.7 3 08/20/2024 6:13 AM T [facility] Blood Venipuncture / Unknown 08/20/2024 5:25 AM EDT 08/20/2024 5:46 AM EDT [facility] - 08/20/2024 6:13 AM [...] ORDERABLES Final Resu lt Performing Organization Address City/[facility]/ZIP Co de Phone Number [facility]
[address] [place] [address], * (ABNORMAL) Potassium (08/19/2024 8:53 PM EDT) Potassium 2.7(L) 3.5 - 5.2 mmol/L 08/19/2024 9:20 PM EDT [facility] Blood Venipuncture / Unknown 08/19/2024 8:53 PM EDT 08/19/2024 9:04 PM EDT Kt Fan DO LAB BLOOD ORDERABLES Final Result Performing Organization Address [facility] Co de Phone Number [facility]
[address] [place] [address], * ABO RH Specimen Verification (08/19/2024 4:34 PM EDT) ABO Type O 08/19/2024 7:39 PM EDT [facility] RH type Positive 08/19/2024 7:39 PM EDT [facility] Blood Venipuncture / Unknown 08/19/2024 4:34 PM EDT 08/19/2024 4:53 PM EDT Rob Wharton MD BLOOD BANK TEST ORDER FRANCO Final Result Performing Organization Address City/[facility]/ZIP Co de Phone Number [facility]
[address] [place] [address], * [facility] (08/19/2024 3:25 PM EDT) Anatomical Region Laterality Modality Ultrasound 08/19/2024 3:09 PM EDT Narrative 08/19/2024 4:54 PM EDT PAT NAME: CAROLE GIRARD MED REC#: [id number] DA: 1990 PAT GEND: F PAT TYPE: E EXAM TRAVIS: [id number] REF PHYS ROB WHARTON Comparison Studies The [...] EFW (oz) 9 oz EFW by: Hadlock ([id number]) Extended Cav. septi pel. tr 4.7 mm Bird Trapper 3.8 mm CM 7.5 mm 84% Nicolaides [...] Heart / Thorax 3-vessel view: Appears normal 6-biahlw-bickrbr view: Appears normal Stomach: Appears normal Kidneys: [...] in 4wks for growth. Coding ======= Description: 55369-43 Follow Up Business Office Associate: RT Annetta Hartmann , [facility] Physician: Jo Chappell MD Electronically signed by: Jo Chappell MD at: 16:54 Procedure Note Jo Chappell MD - 08/19/2024 PAT NAME: CAROLE GIRARD MED REC#: [id number] DA: 1990 PAT GEND: F PAT TYPE: E EXAM TRAVIS: [id number] REF PHYS ROB WHARTON Comparison Studies The findings of this study are compared to the prior ultrasound studydated 07/22/24 Patient Status Inpatient Indication ======== History of c/s x1. History of . Vaginal bleeding. Maternal Assessment Onhoph725 cm Height (ft)5 ft Height (in)4 in Ugztjx65 kg Weight (lb)158 lb BMI27.31 kg/m Method ======= Transabdominal ultrasound examination. View: Limited by patient bodyhabitus ========= Love . Number of fetuses: 1 Dating ====== Method of dating:based on stated DUSTY GA by prior [id number] w + 1 d DUSTY by prior assessment:12/01/2024 Ultrasound examination on:08/19/2024 GA by U/S based upon:AC, BPD, Femur, HC GA by U/S24 w + 2 d DUSTY by U/S:12/07/2024 Previous dating:based on stated DUSTY, selected on 07/22/2024 Agreed DUSTY of previous datin12/01/2024 Assigned:based on stated DUSTY, selected on 08/19/2024 Assigned GA25 w + 1 d Assigned DUSTY:12/01/2024 [email or web address] d Biometry Standard BPD57.6 mm 23w 4d 5% Hadlock OFD81.6 mm 26w 4d 88% Jamal HC225.7 mm 24w 4d 13% Hadlock Cerebellum tr28.9 mm 25w 2d 62% Hill AC194.9 mm 24w 1d 15% Hadlock Femur44.9 mm 24w 6d 27% Hadlock Plqftqc80.3 mm 25w 3d 50% Jamal HC / AC1.16 YVP128 g 24w 2d 16% Hadlock EFW (lb)1 lb EFW (oz)9 oz EFW by:Hadlock ([id number]) Extended Cav. septi pel. tr4.7 mm Vp3.8 mm CM7.5 mm 84% Nicolaides Head / Face / Neck Cephalic index0.71 <1% Nicolaides Extremities / Bony Struc FL / BPD0.78 FL / HC0.20 FL / AC0.23 Other Structures UCO655 bpm General Evaluation Cardiac activity present. FHR [...] normal Heart / Thorax 3-vessel view:Appears normal 2-lfwyzm-vspocib view:Appears normal Stomach:Appears normal Kidneys:Appears normal Bladder:Appears normal Gender:female Wants to know gender:yes Maternal Structures Uterus / Cervix Cervix:Visualized Approach:Transabdominal Cervical ycwqgd14.9 mm Doppler Arterial Umbilical A PI1.01 32% [...] office in 4wks for growth. Coding ======= Description:21535-95 Follow Up Business Office Associate: RT Annetta Hartmann , RDMS Physician: Jo Chappell MD Electronically signed by: Jo Chappell MD at: 16:54 us Kt Fan DO G US ORDERABLES Final Res ult * Protein / Creatinine Ratio, Urine - Urine, Clean Catch (08/19/2024 3:02 PM EDT) Protein/Creati nine Ratio, Urine 126.1 0.0 - 200.0 mg/G Crea 08/20/2024 12:47 AM EDT [facility] Creatinine, Urine 148.3 mg/dL 08/20/2024 12:47 AM EDT [facility] Total Protein, Urine 18.7 mg/dL 08/20/2024 12:47 AM EDT [facility] Urine Urine specimen obtained by clean catch procedure / Unknown Collection / Unknown 08/19/2024 3:02 PM EDT 08/19/2024 4:26 PM EDT Kt Fan URINE ORDERABLES Final Resu lt [facility]
[address] [place] [address], [place] [phone] * (ABNORMAL) Magnesium (08/19/2024 3:02 PM EDT) Magnesium 1.5(L) 1.6 - 2.6 mg/dL 08/19/2024 5:12 PM EDT [facility] Blood Line / Unknown 08/19/2024 3: 02 PM EDT 08/19/2024 3:10 PM EDT Kt Fan DO LAB BLOOD ORDERABLES Final Result [facility]
[address] [place] [address], [place] [phone] * Urinalysis, Microscopic Only - Urine, Clean Catch (08/19/2024 3:02 PM EDT) RBC, UA 0-2 None Seen, 0-2 /HPF 08/19/2024 3:33 PM EDT [facility] WBC, UA 0-2 None Seen, 0-2 /HPF 08/19/2024 3:33 PM EDT [facility] Bacteria, UA None Seen None Seen /HPF 08/19/2024 3:33 PM EDT [facility] Squamous Epithelial Cells, UA 0-2 None Seen, 0-2 /HPF 08/19/2024 3:33 PM EDT [facility] Hyaline Casts, UA None Seen None Seen /LPF 08/19/2024 3:33 PM EDT [facility] Methodology Automated Microscopy 08/19/2024 3:33 PM EDT [facility] Urine Urine specimen obtained by clean catch procedure / Unknown Collection / Unknown 08/19/2024 3:02 PM EDT 08/19/2024 3:13 PM EDT us Kt Fan DO URINE ORDERABLES Final Resu lt [facility]
[address] [place] [address], * (ABNORMAL) CBC Auto Differential (08/19/2024 3:02 PM EDT) WBC 9.19 3.40 - 10.80 10*3/mm3 08/19/2024 3:23 PM EDT [facility] RBC 3.58(L) 3.77 - 5.28 10*6/mm3 08/19/2024 3:23 PM EDT [facility] Hemoglobin 10.5(L) 12.0 - 15.9 g/dL 08/19/2024 3:23 PM EDT [facility] Hematocrit 31.4(L) 34.0 - 46.6 % 08/19/2024 3:23 PM EDT [facility] MCV 87.7 79.0 - 97.0 fL 08/19/2024 3:23 PM EDT [facility] MCH 29.3 26.6 - 33.0 pg 08/19/2024 3:23 PM EDT [facility] MCHC 33.4 31.5 - 35.7 g/dL 08/19/2024 3:23 PM EDT [facility] RDW 13.4 12.3 - 15.4 % 08/19/2024 3:23 PM EDT [facility] RDW-SD 42.4 37.0 - 54.0 fl 08/19/2024 3:23 PM EDT [facility] MPV 12.0 6.0 - 12.0 fL 08/19/2024 3:23 PM EDT [facility] Platelets 241 140 - 450 10*3/mm3 08/19/2024 3:23 PM EDT [facility] Neutrophil % 66.8 42.7 - 76.0 % 08/19/2024 3:23 PM EDT [facility] Lymphocyte % 24.4 19.6 - 45.3 % 08/19/2024 3:[facility] Monocyte % 7.6 5.0 - 12.0 % 08/19/2024 3:23 [facility] Eosinophil % 0.7 0.3 - 6.2 % 08/19/2024 3:23 [facility] Basophil % 0.2 0.0 - 1.5 % 08/19/2024 3:23 PM [facility] Immature Grans % 0.3 0.0 - 0.5 % 08/19/2024 3:23 PM [facility] Neutrophils, Absolute 6.14 1.70 - 7.00 10*3/mm3 08/19/2024 3:23 PM [facility] Lymphocytes, Absolute 2.24 0.70 - 3.10 10*3/mm3 08/19/2024 3:23 PM EDT [facility] Monocytes, Absolute 0.70 0.10 - 0.90 10*3/mm3 08/19/2024 3:23 PM EDT [facility] Eosinophils, Absolute 0.06 0.00 - 0.40 10*3/mm3 08/19/2024 3:23 PM [facility] Basophils, Absolute 0.02 0.00 - 0.20 10*3/mm3 08/19/2024 3:23 PM EDT [facility] Immature Grans, Absolute 0.03 0.00 - 0.05 10*3/mm3 08/19/2024 3:23 PM EDT [facility] nRBC 0.0 0.0 - 0.2 /100 WBC 08/19/2024 3:23 PM EDT [facility] Blood Line / Unknown 08/19/2024 3: 02 PM EDT 08/19/2024 3:10 PM EDT Kt Fan DO LAB BLOOD ORDERABLES Final Result [facility]
[address] [place] [address], * (ABNORMAL) Urinalysis With Microscopic If Indicated (No Culture) - Urine, Clean Catch (08/19/2024 3:02 PM EDT) Color, UA Yellow Yellow, Straw 08/19/2024 3:33 PM EDT [facility] Appearance, UA Clear Clear 08/19/2024 3:33 PM EDT [facility] pH, UA >=9.0(H) 5.0 - 8.0 08/19/2024 3:33 PM EDT [facility] Specific [place], UA 1.018 1.005 - 1.030 08/19/2024 3:33 PM EDT [facility] Glucose, UA Negative Negative 08/19/2024 3:33 PM EDT [facility] Ketones, UA 15 mg/dL (1+)(A) Negative 08/19/2024 3:33 PM EDT [facility] Bilirubin, UA Negative Negative 08/19/2024 3:33 PM EDT [facility] Blood, UA Negative Negative 08/19/2024 3:33 PM EDT [facility] Protein, UA 30 mg/dL (1+)(A) Negative 08/19/2024 3:33 PM EDT [facility] Leuk Esterase, UA Negative Negative 08/19/2024 3:33 PM EDT [facility] Nitrite, UA Negative Negative 08/19/2024 3:33 PM EDT [facility] Urobilinogen, UA 1.0 E.U./dL 0.2 - 1.0 E.U./dL 08/19/2024 3:33 PM EDT [facility] Urine Urine specimen obtained by clean catch procedure / Unknown Collection / Unknown 08/19/2024 3:02 PM EDT 08/19/2024 3:13 PM EDT us Kt Fan DO URINE ORDERABLES Final Resu lt Performing Organization Address City/[facility]/ZIP Co de Phone Number [facility]
[address] [place] [address], [place] [phone] * Amylase (08/19/2024 3:02 PM EDT) Amylase 73 28 - 100 U/L 08/19/2024 3:36 PM EDT [facility] Blood Line / Unknown 08/19/2024 3: 02 PM EDT 08/19/2024 3:10 PM EDT us Kt Fan DO LAB BLOOD ORDERABLES Final Result Performing Organization Address [facility] Co de Phone Number [facility]
[address] [place] [address], [place] [phone] * Lipase (08/19/2024 3:02 PM EDT) Lipase 13 13 - 60 U/L 08/19/2024 3:36 PM EDT [facility] Blood Line / Unknown 08/19/2024 3: 02 PM EDT 08/19/2024 3:10 PM EDT us Kt Fan DO LAB BLOOD ORDERABLES Final Result Performing Organization Address City/[facility]/ZIP Co de Phone Number [facility]
[address] [place] [address], * (ABNORMAL) Comprehensive Metabolic Panel (08/19/2024 3:02 PM EDT) [facility] Glucose 75 65 - 99 mg/dL 08/19/2024 3:38 PM EDT [facility] BUN 3.6(L) 6.0 - 20.0 mg/dL 08/19/2024 3:38 PM EDT [facility] Creatinine 0.51(L) 0.57 - 1.00 mg/dL 08/19/2024 3:38 PM EDT [facility] Sodium 137 136 - 145 mmol/L 08/19/2024 3:38 PM EDT [facility] Potassium 2.6(LL) 3.5 - 5.2 mmol/L 08/19/2024 3:38 PM EDT [facility] Comment:Specimen hemolyzed. Result may be falsely elevated. Chloride 99 98 - 107 mmol/L 08/19/2024 3:38 PM EDT [facility] CO2 24.2 22.0 - 29.0 mmol/L 08/19/2024 3:38 PM EDT [facility] Calcium 8.8 8.6 - 10.5 mg/dL 08/19/2024 3:38 PM EDT [facility] Total Protein 6.6 6.0 - 8.5 g/dL 08/19/2024 3:38 PM EDT [facility] Albumin 3.4(L) 3.5 - 5.2 g/dL 08/19/2024 3:38 PM EDT [facility] ALT (SGPT) 10 1 - 33 U/L 08/19/2024 3:38 PM EDT [facility] AST (SGOT) 22 1 - 32 U/L 08/19/2024 3:38 PM EDT [facility] Alkaline Phosphatase 64 39 - 117 U/L 08/19/2024 3:38 PM EDT [facility] Total Bilirubin 0.5 0.0 - 1.2 mg/dL 08/19/2024 3:38 PM EDT [facility] Globulin 3.2 gm/dL 08/19/2024 3:38 PM EDT [facility] Comment:Calculated Result A/G Ratio 1.1 g/dL 08/19/2024 3:38 PM EDT [facility] BUN/Creatinine Ratio 7.1 7.0 - 25.0 08/19/2024 3:38 PM EDT [facility] Anion Gap 13.8 5.0 - 15.0 mmol/L 08/19/2024 3:38 PM EDT [facility] eGFR 126.6 >60.0 mL/min/1.7 3 08/19/2024 3:38 PM EDT [facility] Blood Line / Unknown 08/19/2024 3: 02 PM EDT 08/19/2024 3:10 PM EDT Narrative [facility] - 08/19/2024 3:38 PM EDT [...] Fan DO LAB BLOOD ORDERABLES Final Result [facility]
[address] [place] [address], * Type & Screen (08/19/2024 3:02 PM EDT) ABO Type O 08/19/2024 3:51 PM EDT [facility] RH type Positive 08/19/2024 3:51 PM EDT [facility] Antibody Screen Negative 08/19/2024 3:51 PM EDT [facility] T&S Expiration Date 08/22/2024 11:59:59 PM 08/19/2024 3:51 PM EDT [facility] Blood Line / Unknown 08/19/2024 3: 02 PM EDT 08/19/2024 3:15 PM EDT Kt Fan DO BLOOD BANK TEST ORDERABLES Edited Result - Final [facility]
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
--- OUTSIDE RECORDS SUMMARY | 2024-08-20 13:33 | XMS_ITS | Encounter Summary ---
[facility] Address [address] [place] [address] Care Team Providers Care Stick Puller Name Role Phone Norma Friedman APRN Primary Care Provider + [phone] Reason for Visit * Reason Comments Vaginal Bleeding * Auth/Cert (Routine) Specialty Diagnoses / Procedures Referred By Tarik t Referred To Contact Referral ID Status Reason Start Date Expiration Date Visits Re quested Visits Authorized [id number] 1 1 Encounter Details Date Type Department Care Team (Late st Contact Info) Description 08/20/2024 1:33 PM EDT - 08/20/2024 2:05 PM EDT Surgery [facility] END[facility] SUITES [address] [place] [address] Blu Alvarado MD [address] [facility] [address] [place] [address] ESOPHAGOGASTRODUODENOSCOPY [75267 (CPT )] Social History Tobacco Use Types Packs/Day Years Used Date Smoking Tobacco: Never Smokeless Tobacco: Never Alcohol Use Standard Drinks/Week Comments Never 0 (1 standard drink = 0.6 oz pur e alcohol) [facility] Utilities Answer Date Recorded In the [...] and heating? Not hard at all 05/28/2024 [facility] - Occupational Stress Questionnaire Answer Date [...] 1:23 PM EDT Polly Lacey RN * [place] Suicide Severity Rating Scale (Screener/Recent Self-Report) Question [...] [facility] Results Pending at Discharge Pending Labs Order Current Status Tissue Pathology Exam In process Rob Wharton MD 08/20/24 15:36 EDT Time: Discharge <30 min documented in this encounter Discharge Instructions * Attachments The following attachments cannot be sent through Care Everywhere. * Second Trimester of (Polish) * Upper Endoscopy Adult Care After (Polish) documented in this encounter Medications at Time [...] 08/19/2024 RH Positive 08/19/2024 ABSCRN Negative 08/19/2024 [id number] non-reactive 04/12/2024 HEPCVIRUSABY negative 04/12/2024 URINECX Final [...] IUPC: Resting Tone: Resting Tone by IUPC: Trinity Units: Cervix: Exam by: Method: sterile vaginal [...] from the original note were not included. [facility] Obstetric History and Physical [...] her third trimesters prior pregnancies(etiology unknown). Patient's health information tech is in [facility]. She [...] IUPC: Resting Tone: Resting Tone by IUPC: Trinity Units: Laboratory Results: Lab Results (last 24 [...] Order(s): IP CONSULT TO [place] [facility] [place] Referring Provider: Dr. Fan/Dr. Wharton [...] expresses concern regarding recent CT scan at [facility] revealing a hiatal hernia. CT scan done prior to most recent due to ovarian cyst and incidentally revealed hiatal hernia. She reports chronic gastrointestinal symptoms. Review of medical record revealed prior GI referral due to blood per rectum. She reports colonoscopy in 2020 at outside facility that revealed diverticulosis and benign colon polyp. She is currently established with provider at [facility] for gastroenterology care she reports [...] , await recommendations following EGD - consider PHOTOGRAMMETRIC SURVEYOR evaluation if no etiology for difficulty swallowing [...] from the original note were not included. [facility] Obstetric History and Physical [...] her third trimesters prior pregnancies(etiology unknown). Patient's health information tech is in [facility]. She [...] IUPC: Resting Tone: Resting Tone by IUPC: Trinity Units: Laboratory Results: Lab Results (last 24 [...] 3:30 PM EST Office Visit [facility] [address] [id number] Robbin Escalante MD [address] [address] documented as of this encounter Procedures Procedure [...] TEST Routine 08/19/2024 4:[address] [facility] Routine 08/19/2024 3:25 [...] EDT) Case Report Surgical Pathology Report Case: [id number] Authorizing Provider: Blu Alvarado MD Collected: 08/20/2024 [...] Final Result [facility]
[address] [place] [address], * Upper GI Endoscopy (08/20/2024 1:09 PM [...] 0.57 - 1.00 mg/dL 08/20/2024 6:13 AM [facility] Sodium 139 136 - 145 mmol/L 08/20/2024 6:13 AM EDT [facility] Potassium 3.5 3.5 - 5.2 mmol/L 08/20/2024 6:13 AM EDT [facility] Chloride 109(H) 98 - 107 mmol/L 08/20/2024 6:13 AM [facility] CO2 23.5 22.0 - 29.0 mmol/L 08/20/2024 6:13 AM [facility] Calcium 7.8(L) 8.6 - 10.5 mg/dL 08/20/2024 6:13 AM [facility] BUN/Creatinine Ratio 4.5(L) 7.0 - 25.0 08/20/2024 6:13 AM [facility] Anion Gap 6.5 5.0 - 15.0 mmol/L 08/20/2024 6:13 AM [facility] eGFR 126.6 >60.0 mL/min/1.7 3 08/20/2024 6:13 AM [facility] Blood Venipuncture / Unknown 08/20/2024 5:25 AM EDT 08/20/2024 5:46 AM T [facility] LABORATORY - 08/20/2024 6:13 AM EDT [...] lt Performing Organization Address City/[facility]/ZIP Co de Phone Number [facility]
[address] [place] [address], * (ABNORMAL) Potassium (08/19/2024 8:53 PM EDT) Potassium 2.7(L) 3.5 - 5.2 mmol/L 08/19/2024 9:20 PM EDT [facility] Blood Venipuncture / Unknown 08/19/2024 8:53 PM EDT 08/19/2024 9:04 PM EDT Kt Fan DO LAB BLOOD ORDERABLES Final Result Performing Organization Address [facility] Co de Phone Number [facility]
[address] [place] [address], * ABO RH Specimen Verification (08/19/2024 4:34 PM EDT) ABO Type O 08/19/2024 7:39 PM EDT [facility] BB LABORATORY RH type Positive 08/19/2024 7:39 PM EDT [facility] Blood Venipuncture / Unknown 08/19/2024 4:34 PM EDT 08/19/2024 4:53 PM EDT Rob Wharton MD BLOOD BANK TEST ORDER FRANCO Final Result Performing Organization Address City/[facility]/ZIP Co de Phone Number [facility] BB LABORATORY
[address] [place] [address], * [facility] (08/19/2024 3:25 PM EDT) Anatomical Region Laterality Modality Ultrasound 08/19/2024 3:09 PM EDT Narrative 08/19/2024 4:54 PM EDT PAT NAME: CAROLE GIRARD MED REC#: [id number] DA: 1990 PAT GEND: F PAT TYPE: E EXAM TRAVIS: [id number] REF PHYS ROB WHARTON Comparison Studies The [...] EFW (oz) 9 oz EFW by: Hadlock ([id number]) Extended Cav. septi pel. tr 4.7 mm Refueling Ramp Supervisor 3.8 mm CM 7.5 mm 84% Nicolaides [...] Heart / Thorax 3-vessel view: Appears normal 3-cwbzgj-crinqdf view: Appears normal Stomach: Appears normal Kidneys: [...] in 4wks for growth. Coding ======= Description: 58227-20 Follow Up Qi Specialist: Alison Verduzco RT R , MS Physician: Jo Chappell MD Electronically signed by: Jo Chappell MD at: 16:54 Procedure Note Jo Chappell MD - 08/19/2024 PAT NAME: CAROLE GIRARD MED REC#: [id number] DA: [id number] PAT GEND: F PAT TYPE: E EXAM TRAVIS: [id number] REF PHYS ROB WHARTON Comparison Studies The findings of this study are compared to the prior ultrasound studydated 07/22/24 Patient Status Inpatient Indication ======== History of c/s x1. History of . Vaginal bleeding. Maternal Assessment Tyaayq439 cm Height (ft)5 ft Height (in)4 in Fjabfk31 kg Weight (lb)158 lb BMI27.31 kg/m Method ======= Transabdominal ultrasound examination. View: Limited by patient bodyhabitus ========= Love . Number of fetuses: 1 Dating ====== Method of dating:based on stated DUSTY GA by prior uvtyyutuxp54 w + 1 d DUSTY by prior assessment:12/01/2024 Ultrasound examination on:08/19/2024 GA by U/S based upon:AC, BPD, Femur, HC GA by U/S24 w + 2 d DUSTY by U/S:12/07/2024 Previous dating:based on stated DUSTY, selected on 07/22/2024 Agreed DUSTY of previous datin12/01/2024 Assigned:based on stated DUSTY, selected on 08/19/2024 Assigned GA25 w + 1 d Assigned DUSTY:12/01/2024 [id number] d Biometry Standard BPD57.6 mm 23w 4d 5% Hadlock OFD81.6 mm 26w 4d 88% Jamal HC225.7 mm 24w 4d 13% Hadlock Cerebellum tr28.9 mm 25w 2d 62% Hill AC194.9 mm 24w 1d 15% Hadlock Femur44.9 mm 24w 6d 27% Hadlock Ejridfi48.3 mm 25w 3d 50% Jamal HC / AC1.16 BKM765 g 24w 2d 16% Hadlock EFW (lb)1 lb EFW (oz)9 oz EFW by:Hadlock ([id number]) Extended Cav. septi pel. tr4.7 mm Vp3.8 mm CM7.5 mm 84% Nicolaides Head / Face / Neck Cephalic index0.71 <1% Nicolaides Extremities / Bony Struc FL / BPD0.78 FL / HC0.20 FL / AC0.23 Other Structures ANK636 bpm General Evaluation Cardiac activity present. FHR [...] normal Heart / Thorax 3-vessel view:Appears normal 8-kifgug-vbgffwt view:Appears normal Stomach:Appears normal Kidneys:Appears normal Bladder:Appears normal Gender:female Wants to know gender:yes Maternal Structures Uterus / Cervix Cervix:Visualized Approach:Transabdominal Cervical ifsopg61.9 mm Doppler Arterial Umbilical A PI1.01 32% [...] office in 4wks for growth. Coding ======= Description:87535-97 Follow Up Qi Specialist: RT Annetta Hartmann , [facility] Physician: Jo Chappell [...] [facility]
[address] [place] [address], [place] [phone] * (ABNORMAL) Magnesium (08/19/2024 3:02 PM EDT) Magnesium 1.5(L) 1.6 - 2.6 mg/dL 08/19/2024 5:12 PM EDT [facility] Blood Line / Unknown 08/19/2024 3: 02 PM EDT 08/19/2024 3:10 PM EDT Kt Fan DO LAB BLOOD ORDERABLES Final Result Performing Organization Address City/[facility]/ZIP Co de Phone Number [facility]
[address] [place] [address], [place] [phone] * Urinalysis, Microscopic Only - Urine, Clean [...] lt [facility]
[address] [place] [address], * (ABNORMAL) CBC Auto Differential (08/19/2024 3:02 [...] Result [facility]
[address] [place] [address], * (ABNORMAL) Urinalysis With Microscopic If Indicated (No Culture) - Urine, Clean Catch (08/19/2024 3:02 PM EDT) Color, UA Yellow Yellow, Straw 08/19/2024 3:33 PM EDT [facility] Appearance, UA Clear Clear 08/19/2024 3:33 PM EDT [facility] pH, UA >=9.0(H) 5.0 - 8.0 08/19/2024 3:33 PM EDT [facility] Specific Winston, UA 1.018 1.005 - 1.030 08/19/2024 3:33 [...] lt [facility]
[address] [place] [address], [place] [phone] * Amylase (08/19/2024 3:02 PM EDT) Amylase 73 28 - 100 U/L 08/19/2024 3:36 PM EDT [facility] Blood Line / Unknown 08/19/2024 3: 02 PM EDT 08/19/2024 3:10 PM EDT us Kt Fan DO LAB BLOOD ORDERABLES Final Result Performing Organization Address [facility] Co de Phone Number [facility]
[address] [place] [address], [place] [phone] * Lipase (08/19/2024 3:02 PM EDT) Lipase 13 13 - 60 U/L 08/19/2024 3:36 PM EDT [facility] Blood Line / Unknown 08/19/2024 3: 02 PM EDT 08/19/2024 3:10 PM EDT us Kt Fan DO LAB BLOOD ORDERABLES Final Result Performing Organization Address City/[facility]/ZIP Co de Phone Number [facility]
[address] [place] [address], [place] [phone] * (ABNORMAL) Comprehensive Metabolic Panel (08/19/2024 3:02 [...] 3.5 - 5.2 mmol/L 08/19/2024 3:38 PM [facility] Comment:Specimen hemolyzed. Result may be falsely elevated. Chloride 99 98 - 107 mmol/L 08/19/2024 3:38 PM [facility] CO2 24.2 22.0 - 29.0 mmol/L 08/19/2024 3:38 PM T [facility] Calcium 8.8 8.6 - 10.5 mg/dL 08/19/2024 3:38 PM T [facility] Total Protein 6.6 6.0 - 8.5 g/dL 08/19/2024 3:38 PM [facility] Albumin 3.4(L) 3.5 - 5.2 g/dL 08/19/2024 3:38 PM [facility] ALT (SGPT) 10 1 - 33 U/L 08/19/2024 3:38 PM T [facility] AST (SGOT) 22 1 - 32 U/L 08/19/2024 3:38 PM T [facility] Alkaline Phosphatase 64 39 - 117 U/L 08/19/2024 3:38 PM [facility] Total Bilirubin 0.5 0.0 - [...] 02 PM EDT 08/19/2024 3:10 PM EDT [facility] LABORAT[facility] - 08/19/2024 3:38 PM EDT [...] Final Result [facility]
[address] [place] [address], * Type & Screen (08/19/2024 3:02 PM [...] [facility] LABORATORY
[address] [place] [address], documented in this encounter Visit Diagnoses Diagnosis [...] BPA Driven Protocol Open Order & [facility] Electrolyte Replacement Protocol Algorithm to View [...] documented as of this encounter Care Teams Stick Puller Relationship Specialty Start Date End Date Norma Friedman APRN [address] [place] G3 RAFAELA APPIAH [address] PCP - General Family Medicine 05/14/24 documented as of this encounter
--- OUTSIDE RECORDS SUMMARY | 2024-08-20 13:44 | XMS_ITS | Encounter Summary ---
[facility] Address [address] [place] [phone] Care Team Providers Care Pedicab Driver Name Role Phone IvyKade goldbergdev FERNÁNDEZ Primary Care Provider + [phone] Reason for Visit * Auth/Cert (Routine) Specialty Diagnoses / Procedures Referred By Contac t Referred To Contact Referral ID Status Reason Start Date Expiration Date Visits Re quested Visits Authorized 1 1 Encounter Details Date Type Department Care Team (Late st Contact Info) Description 08/20/2024 1:44 PM EDT Anesthesia Event [facility] ENDO SUITES [address] [place] [address] Akash Anguiano MD [address] [place] [address] Liborio Peralta CRNA [address] [place] [address] Anesthesia Record Procedure Summary Procedure Name Responsible [...] drink = 0.6 oz pur e alcohol) [facility] Utilities Answer Date Recorded In the [...] and heating? Not hard at all 05/28/2024 [facility] [place] of Occupat ional Health - Occupational Stress [...] GED or equivalent No 05/28/2024 Preferred Language Barbadian 05/28/2024 PHQ-2 Answer Date Recorded Patient Health [...] 1:23 PM EDT Polly Lacey RN * [place] Suicide Severity Rating Scale (Screener/Recent Self-Report) Question Answer Date of Assessment Author 6. Suicidal Behavior (Lifetime) No 1:23 PM EDT Polly Cabrera RN documented as of this encounter OR Notes * Anesthesia Postprocedure Evaluation - Liborio Peralta CRNA - 08/20/2024 2:18 PM EDT Patient: Whitney Presley Procedure Summary Date: 08/20/24 Room / Location: [facility] ENDOSCOPY 3 / [facility] Anesthesia [...] sounds: normal. 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 Plan discussed with SWAGING MACHINE OPERATOR. CODE STATUS: documented in this encounter Plan of Treatment Upcoming Encounters Date Type Department Care Team (Late st Contact Info) Description 01/20/2025 3:30 PM EST Office Visit [facility] GASTROENTEROLOGY [address] [facility] [address] Robbin Escalante MD [address] [address] documented as of this encounter Procedures Procedure [...] and Staff Patient location during procedure: OR SWAGING MACHINE OPERATOR/CAA: Junior Zbigniew Jain, DAYNE Indications [...] documented as of this encounter Care Teams Pedicab Driver Relationship Specialty Start Date End Date Norma Friedman APRN [address] [place] [address] [place] [id number] PCP - General Family Medicine 05/14/24 documented as of this encounter
--- OUTSIDE RECORDS SUMMARY | 2024-08-29 10:00 | XMS_ITS | Encounter Summary ---
[facility] [address] [place] [address] Care Team Providers Care Steel Fixer Name Role Phone IvyKade goldbergjoseseven JOLENE Primary Care Provider + [phone] Reason for Visit * Reason Comments Problem Encounter Details Date Type Department Care Team (Late st Contact Info) Description 08/29/2024 10:00 AM EDT Routine [facility] OBGYN [address] [place] [address] Staci Jain MD [address] [place] [address] GA: 26w4d Social History Tobacco Use Types Packs/Day Years Used Date Smoking Tobacco: Never Smokeless Tobacco: Never Alcohol Use Standard Drinks/Week Comments Never 0 (1 standard drink = 0.6 oz pur e alcohol) [facility] Utilities Answer Date Recorded In the past 12 months has [employer], gas, oil, or water [employer] threatened to shut off services in your [...] and heating? Not hard at all 05/28/2024 [facility] - Occupational Stress Questionnaire Answer Date [...] EST Office Visit [facility] GASTROENTEROLOGY [address] [address] Robbin Escalante MD [address] [address] documented as of this encounter Procedures Procedure [...] 08/30/2024 6:09 AM EDT Performed at: [address] [id number] Montessori Preschool Teacher: Kevin Harman MD, Phone: [phone] Patient Fasting: N us Staci Jain MD LAB BLOOD ORDERABLES Final Result [facility] (AMBULATORY) [address] [place] [address], [facility] [address] [place] [address], * (ABNORMAL) Comprehensive Metabolic Panel (08/29/2024 11:05 [...] 11:0 5 AM EDT 08/29/2024 Narrative [facility] (AMBULATORY) - 08/30/2024 6:09 AM EDT Performed at: 01 - [place] [address] [place], [place] [id number] Montessori Preschool Teacher: Kevin Harman MD, Phone: [phone] Patient Fasting: N Staci Jain MD LAB BLOOD ORDERABLES Final Result Performing Organization Address City/[facility]/ZIP Co de Phone Number [facility] ([facility]) [address] [place] [address], [place] [phone] [facility] [address] [place] [address], [place] [phone] * (ABNORMAL) POC Urinalysis Dipstick (08/29/2024 10:13 AM EDT) Glucose, UA Negative Negative mg/dL [facility] Protein, POC Trace(A) Negative mg/dL [facility] Urine 08/29/2024 10:1 3 AM EDT us Staci Jain MD POINT OF CARE TEST OR DERABLES Final Result Performing Organization Address City/[facility]/ZIP Co de Phone Number [facility]
[address] [place] [address], documented in this encounter Visit Diagnoses Diagnosis [...] documented as of this encounter Care Teams Steel Fixer Relationship Specialty Start Date End Date Norma Friedman APRN [address] [place] [place]IA[place] [address] PCP - General Family Medicine 05/14/24 documented as of this encounter
--- OUTSIDE RECORDS SUMMARY | 2024-09-23 10:00 | XMS_ITS | Encounter Summary ---
Author Organization [facility] Address [address] [place] [address] Care Team Providers Care Lighting Adviser Name Role Phone Norma Friedman JOLENE Primary Care Provider +1- [phone] Reason for Referral * Consultation (Routine) - Closed Specialty Diagnoses / Procedures Referred By Contac t Referred To Contact Cardiology Diagnoses Supervision of high risk , antepartum Cardiac arrhythmia, unspecified cardiac arrhythmia type Liborio Weller MD [address] [facility] [address] [place] [address] Phone: tel: fax: Referral ID Status Reason Start Date Expiration Date V isits Requested Visits Authorized [id number] Closed Specialty Services Required 09/23/2024 03/25/2026 1 1 Encounter Details Date Type Department Care Team ([facility] st Contact Info) Description 09/23/2024 10:00 AM EDT Office Visit Medical Office Building Obstetrics and Gynecology [address] [facility], [address] [place] [address] Liborio Weller MD [address] [facility] 140 [place] [address] Supervision of high risk , [...] more drinks on one occasion? Never 09/23/2024 [place] Depression Scale Answer Date Recorded [place] Depression Scale Total 0 09/23/2024 The thought [...] last week on 09/19. She presented to [facility] for chest pain and palpitations. She has [...] 09/25 and has otherwise never seen a commercial lending assistant. She has never seen a rail car painter/sandblaster. She also reports during this admission she [...] 08/21/19 37w5d 2807 g M Vag-Spont EPI JGADISH Complications: Potassium (K) deficiency 5 SAB 07/20/18 [...] None N JAGDISH Complications: Potassium (K) deficiency [place] Depression Scale Total: 0 Gynecology History No [...] has a past surgical history that includes [place] tooth extraction (N/A); section, low transverse (N/A); [...] prescription(s): ferosul, potassium chloride cr, prenat mv-min w/io-czplog-qzy, and thiamine. Allergies Allergies[1] Review of Systems [...] [facility] to 170s-180s with standing, [...] other day Has never been evaluated by commercial lending assistant for salt wasting nephropathy PLAN Has nephrology [...] the patient, and documenting this visit. (Est [id number]) Brandee Pringle MD Obstetrics & Gynecology, PGY-2 [...] Info) Description 10/17/2024 8:30 AM EDT Appointment [facility] Ultrasound [address] [place] [address] 10/17/2024 9:15 AM EDT Routine Medical Office Building Obstetrics and Gynecology [address] [facility], [address] [place] [address] Laury Cruz MD [address] [facility] [address] [place] [address] 10/24/2024 8:00 AM EDT Office Visit [facility] [place] [address] [facility], [address] [place] [address] Nneka Block MD [address] [place] [address] 12/25/2024 1:00 PM EST Office Visit [facility] Nephrology, Bone & Mineral Metabolism [address] [facility], [address] [place] [address] Scheduled Referrals Name Type Priority [...] Ketones, Urine 40(A) Negative mg/dL POCT Specific [place], Urine 1.015 POCT Blood, Urine Negative Negative POCT pH, Urine >=9.0(A) 5.0 to 8.0 POCT Protein, Urine 100(A) Negative mg/dL POCT Urobilinogen, Urine 0.2 0.2, 1 E.U./dL POCT Nitrite, Urine Negative Negative POCT Leukocyte Esterase, Urine Negative Negative Test Strip Lot Number [id number] Test Strip Lot Expiration 07/2025 Urine Urine [...] documented as of this encounter Care Teams Lighting Adviser Relationship Specialty Start Date End Date Norma Friedman APRN [address] [place] [address] PCP - General 09/23/24 documented as of this encounter
--- OUTSIDE RECORDS SUMMARY | 2024-09-25 14:20 | XMS_ITS | Encounter Summary ---
Author Organization Healthcare Address [address] [place] [address] Care Team Providers Care Receptionist Secretary Name Role Phone Norma Friedman JOLENE Primary Care Provider +1- [phone] Reason for Referral * Consultation (Routine) - Authorized Specialty Diagnoses / Procedures Referred By Tarik pedersen Referred To Contact Diagnoses Hypokalemia Bill Patrick MD [address] [place] [phone] Phone: tel: fax: Referral ID Status Reason Start Date Expiration Date V isits Requested Visits Authorized [id number] Authorized 09/25/2024 03/27/2026 1 1 * Imaging (Routine) - Authorized Specialty Diagnoses / Procedures Referred By Tarik pedersen Referred To Contact Radiology Diagnoses Hypokalemia Procedures US Renal Complete Bill Patrick MD [address] [place] [phone] Phone: tel: fax: Referral ID Status Reason Start Date Expiration Date V isits Requested Visits Authorized [id number] Authorized 09/25/2024 03/27/2026 1 1 Reason for Visit * Reason Comments Consult * Consultation (Routine) - Closed Specialty Diagnoses / Procedures Referred By Tarik pedersen Referred To Contact Nephrology Diagnoses Hypokalemia Liborio Weller MD [address] [address] Phone: tel: fax: [facility] Nephrology, Bone & Mineral Metabolism [address] , [address] [place] [address] Phone: tel: fax: Referral ID Status Reason Start Date Expiration Date V isits Requested Visits Authorized [id number] Closed Specialty Services Required 09/14/2024 03/16/2026 1 1 Encounter Details Date Type Department Care Team (Late st Contact Info) Description 09/25/2024 2:20 PM EDT Office Visit [facility] Nephrology, Bone & Mineral Metabolism [address] , [address] [place] [address] Bill Patrick MD [address] [place] [address] Hypokalemia (Primary Dx) Social History [...] more drinks on one occasion? Never 09/23/2024 [place] Depression Scale Answer Date Recorded [place] Depression Scale Total 0 09/23/2024 The thought [...] 37 weeks andshe did not see a Electronic Resources Librarian at that time. Also notes she has [...] Date SECTION, LOW TRANSVERSE N/A section from [facility] DILATION AND CURETTAGE OF UTERUS N/A Dilation and curettage from [facility] WISDOM TOOTH EXTRACTION N/A Oral Surgery Tooth Extraction [place] Tooth from [facility] [3] Family History Problem Relation Name Age [...] mouth 3 times a day.) Prenat MV-Min w/Vf-Whhtee-TYX ( COMPLETE PO) thiamine (Vitamin B-1) 100 [...] Info) Description 10/17/2024 8:[address] [facility] Ultrasound [address] [place] [address] 10/17/2024 9:15 AM EDT Routine Medical Office Building Obstetrics and Gynecology [address], [address] [place] [address] Laury Cruz MD [address] [place] [address] 10/24/2024 8:00 AM EDT Office Visit [facility] [place] [address], [address] [place] [address] Nneka Block MD [address] [place] [address] 12/25/2024 1:00 PM EST Office Visit [facility] Nephrology, Bone & Mineral Metabolism [address], [address] [place] [address] Scheduled Orders Name Type Priority Associated Diagnoses Orde r Schedule Urinalysis with reflex microscopic (Culture NOT Included) Lab Routine Hypokalemia Expected: 09/25/2024 (Approximate), Expires: 03/28/2026 US Renal Complete Imaging Routine Hypokalemia Expected: 09/25/2024 (Approximate), Expires: 03/29/2026 Scheduled Referrals Name Type Priority Associated Diagnoses Order Schedule Follow Up Nephrology Outpatient Referral Routine Hypokalemia Expected: 12/26/2024 (Approximate), Expires: 10/26/2025 documented as of this encounter Results * Chloride, urine, random (09/26/2024 10:07 AM EDT) Chloride, Urine 25 mmol/L 2:03 PM EDT [facility] Urine Urine specimen obtained by clean catch procedure / Unknown Non-blood Collection / Unknown 09/26/2024 10:07 AM EDT 09/26/2024 10:07 AM EDT us Bill Patrick MD LAB URINE ORDERABLES Final Resul t [facility] [address] [place] [address] * Protein, Random, Urine with Creatinine (09/26/2024 10:03 AM EDT) Protein, Urine 26 mg/dL 09/26/2024 12:08 PM EDT [facility] Creatinine, Urine 199 mg/dL 09/26/2024 12:08 PM EDT [facility] Protein/Creati nine Ratio 0.1 mg/mg Creat 09/26/2024 12:08 PM EDT [facility] Urine Urine specimen obtained by clean catch procedure / Unknown Non-blood Collection / Unknown 09/26/2024 10:03 AM EDT 09/26/2024 10:04 AM EDT us Bill Patrick MD LAB URINE ORDERABLES Final Resul t Performing Organization Address City/[facility] Co de Phone Number [facility] [address] [place] [address] * Potassium, urine, random (09/26/2024 10:02 AM EDT) Potassium, Urine 43 mmol/L 09/26/2024 11:55 AM EDT [facility] Urine Urine specimen obtained by clean catch procedure / Unknown Non-blood Collection / Unknown 09/26/2024 10:02 AM EDT 09/26/2024 10:02 AM EDT us Bill Patrick MD LAB URINE ORDERABLES Final Resul t Performing Organization Address [facility] Co de Phone Number [facility] [address] [place] [address] * Osmolality, urine (09/26/2024 10:02 AM EDT) Osmolality, Urine 404 50 - 1,200 mOsm/kg 09/26/2024 1:48 PM EDT [facility] Urine Urine specimen obtained by clean catch procedure / Unknown Non-blood Collection / Unknown 09/26/2024 10:02 AM EDT 09/26/2024 10:02 AM EDT us Bill Patrick MD LAB URINE ORDERABLES Final Resul t Performing Organization Address City/[facility] Co de Phone Number [facility] [address] [place] [address] * Sodium, urine, random (09/26/2024 10:02 AM EDT) Sodium, Urine 110 mmol/L 09/26/2024 11:55 AM EDT [facility] Urine Urine specimen obtained by clean catch procedure / Unknown Non-blood Collection / Unknown 09/26/2024 10:02 AM EDT 09/26/2024 10:02 AM EDT Bill Patrick MD LAB URINE ORDERABLES Final Resul t [facility] [address] [place] [address] * Antinuclear Antibody (JEFFERY), HEp-2, IgG (09/26/2024 9:32 AM EDT) JEFFERY INTERPRETIVE COMMENT See Note 09/28/2024 5:13 PM EDT [facility] ([employer]) Anti Nuc Ab Screen <1:80 <1:80 09/28/2024 5:13 PM EDT [facility] ([facility] [employer]) Blood Venous blood specimen / Unknown Venipuncture / Unknown 09/26/2024 9:32 AM EDT 09/26/2024 9:32 AM EDT Narrative [facility] ([facility] [employer]) - 09/28/2024 5:13 PM EDT INTERPRETIVE INFORMATION: [...] rings, and cytoplasmic speckled patterns. Performed By: [facility] [address] [place] [address] Salon Manager: Brandon Bell MD, PhD CLIA Number: [id number] Bill Patrick MD LAB BLOOD ORDERABLES Final Resul t [facility] ([facility]) [address] [place] [address] * Rheumatoid factor, plasma (09/26/2024 9:32 AM EDT) Pathologist [facility] Rheumatoid Factor, Plasma <10 <14 IU/mL 09/26/2024 1:49 PM EDT [facility] Blood Venous blood specimen / Unknown Venipuncture / Unknown 09/26/2024 9:32 AM EDT 09/26/2024 9:32 AM EDT Bill Patrick MD LAB BLOOD ORDERABLES Final Resul t [facility] [address] [place] [address] * SSB (LA) (YARA) ANTIBODY, IGG (09/26/2024 9:32 AM EDT) SSB (LA) (YARA) Antibody, IgG 0 0 - 40 AU/mL 09/28/2024 5:47 PM EDT [facility]) Serum Venous blood specimen / Unknown 09/26/2024 9:32 AM EDT 09/26/2024 9:32 AM EDT Narrative [facility]) - 09/28/2024 5:47 PM EDT INTERPRETIVE INFORMATION: [...] (PSS) also have this antibody. Performed By: [facility] [address] [place] [address] Salon Manager: Brandon Bell MD, PhD CLIA Number: [id number] us Bill Patrick MD LAB BLOOD ORDERABLES Final Resul t [facility] [employer] ([facility]) [address] [place] [address] * SSA 52 and 60 (Ro) (YARA) Antibodies, IgG (09/26/2024 9:32 AM EDT) SSA-52 (RO52) (YARA) Antibody, IgG 2 0 - 40 AU/mL 09/28/2024 5:47 PM EDT [facility] ([facility]) SSA-60 (RO60) (YARA) Antibody, IgG 0 0 - 40 AU/mL 09/28/2024 5:47 PM EDT [facility] ([facility]) Serum 09/26/2024 9:32 AM EDT 09/26/2024 9:32 AM EDT Narrative [facility] ([facility]) - 09/28/2024 5:47 PM EDT INTERPRETIVE INFORMATION: [...] AU/mL or Greater .......... Positive Performed By: [facility] [address] [place] [address] Salon Manager: Brandon Bell MD, PhD CLIA Number: [id number] us Bill Patrick MD LAB REF LAB BLOOD AND FLUID ORD Final Result [facility] ([facility] [address] [place] [address] * (ABNORMAL) Renal function panel (09/26/2024 9:32 AM EDT) Glucose, Plasma 87 74 - 99 mg/dL 09/26/2024 12:24 PM EDT [facility] BUN, Plasma 5(L) 7 - 21 mg/dL 09/26/2024 12:24 PM EDT [facility] Creatinine, Plasma 0.72 0.60 - 1.10 mg/dL 09/26/2024 12:24 PM EDT [facility] BUN/Creatinine Ratio 7 09/26/2024 12:24 PM EDT [facility] Sodium, Plasma 135(L) 136 - 145 mmol/L 09/26/2024 12:24 PM EDT [facility] Potassium, Plasma 3.1(L) 3.6 - 4.9 mmol/L 09/26/2024 12:24 PM EDT [facility] Chloride, Plasma 95(L) 97 - 107 mmol/L 09/26/2024 12:24 PM EDT [facility] CO2, Plasma 26 22 - 29 mmol/L 09/26/2024 12:24 PM EDT [facility] Anion Gap 14 6 - 16 mmol/L 09/26/2024 12:24 PM EDT [facility] Total Calcium, Plasma 9.4 8.9 - 10.2 mg/dL 09/26/2024 12:24 PM EDT [facility] Phosphorus, Plasma 3.5 2.5 - 4.5 mg/dL 09/26/2024 12:24 PM EDT [facility] Albumin, Plasma 3.6 3.5 - 5.2 g/dL 09/26/2024 12:24 PM EDT [facility] eGFRcr 113.4 mL/min/1.7 3m*2 09/26/2024 12:24 PM EDT [facility] Comment:Reported eGFRcr in m L/min/1.73m2 is based the CKD-EPI 2020 equation that does not use a race coefficient. Blood Venous blood specimen / Unknown Venipuncture / Unknown 09/26/2024 9:32 AM EDT 09/26/2024 9:32 AM EDT us Bill Patrick MD LAB BLOOD ORDERABLES Final Resul t Performing Organization Address City/[facility] Co de Phone Number [facility] [address] [place] [address] * (ABNORMAL) Osmolality (09/26/2024 9:32 AM EDT) Osmolality, Serum 273(L) 275 - 295 mOsm/Kg 09/26/2024 2:10 PM EDT [facility] Blood Venous blood specimen / Unknown Venipuncture / Unknown 09/26/2024 9:32 AM EDT 09/26/2024 9:32 AM EDT us Bill Patrick MD LAB BLOOD ORDERABLES Final Resul t [facility] [address] [place] [address] documented in this encounter Visit Diagnoses Diagnosis Hypokalemia- Primary Hypopotassemia Supervision of high risk , antepartum- Primary documented in this encounter Additional Health Concerns Assessment Noted Time A fall risk assessment has been complete d for the patient 09/25/2024 3:05 PM EDT A Body Mass Index follow-up plan has been documented for the patient 10/05/2024 8:54 PM EDT documented as of this encounter Care Teams Receptionist Secretary Relationship Specialty Start Date End Date Norma Friedman APRN [address] [place] [address] RAFAELA Shin [address] PCP - General 09/23/24 documented as of this encounter
--- OUTSIDE RECORDS SUMMARY | 2024-09-26 08:00 | XMS_ITS | Encounter Summary ---
Author Organization [facility] Address [address] [place] [address] Care Team Providers Care Supervisor Brake Repair Name Role Phone Norma Friedman ADMINISTRATIVE COORDINATOR Primary Care Provider +1- [phone] Lizz Trinh RN Unavailable Unavailable Reason for Referral * Consultation (Routine) - Authorized Specialty Diagnoses / Procedures Referred By Tarik pedersen Referred To Contact Diagnoses Palpitations Syncope and collapse Nneka Vasquez MD [address] [place] [phone] Phone: tel: fax: Referral ID Status Reason Start Date Expiration Date V isits Requested Visits Authorized [id number] Authorized 09/26/2024 03/28/2026 1 1 * Cardiac Stress Testing (Routine) - Closed Specialty Diagnoses / Procedures Referred By Contac t Referred To Contact Cardiology Diagnoses Palpitations Syncope and collapse Procedures Adult Patch Monitor - 7 Day Nneka Vasquez MD [address] [place] [phone] Phone: tel: fax: Referral ID Status Reason Start Date Expiration Date Visits Re quested Visits Authorized [id number] Closed 09/26/2024 03/28/2026 1 1 Reason for Visit * Consultation (Routine) - Closed Specialty Diagnoses / Procedures Referred By Contac t Referred To Contact Cardiology Diagnoses Supervision of high risk , antepartum Cardiac arrhythmia, unspecified cardiac arrhythmia type [place] MineLiborio Preciado MD [address] [address] Phone: tel: fax: Referral ID Status Reason Start Date Expiration Date V isits Requested Visits Authorized [id number] Closed Specialty Services Required 09/23/2024 03/25/2026 1 1 Encounter Details Date Type Department Care Team (Late st Contact Info) Description 09/26/2024 8:00 AM EDT Office Visit [facility] [place] [address] [facility], [address] [place] [address] Nneka Vasquez MD [address] [place] [address] Syncope and collapse (Primary Dx); [...] more drinks on one occasion? Never 09/23/2024 [place] Depression Scale Answer Date Recorded [place] Depression Scale Total 0 09/23/2024 The thought [...] Vasquez MD - 09/26/2024 8:00 AM EDT [place] [facility] ([facility]) Problem List #Hypomagnesium and Hypokalemia -- PICC [...] with no plans. 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 cardiac care nurse today to evaluate for abnormal rhythms and [...] TOOTH EXTRACTION N/A Oral Surgery Tooth Extraction [place] Tooth from [employer] [3] Social History Socioeconomic [...] Strain: Low Risk (05/28/2024) Received from [facility] Overall Financial Resource Strain (CARDIA) Difficulty of Paying Living Expenses: Not hard at all Food Insecurity: No Food Insecurity (05/28/2024) Received from [facility] Hunger Vital Sign Within the past 12 months, you worried that your food would run out before you got the money to buymore.: Never true Within the past 12 months, the food you bought just didn't last and you didn't have money to get more.: Never true Transportation Needs: No Transportation Needs (05/28/2024) Received from [facility] PRAPARE - Transportation In the past 12 months, has lack of transportation kept you from medical appointments or from getting medications?: No In the past 12 months, has lack of transportation kept you from meetings, work, or from getting things needed for daily living?: No Physical Activity: Sufficiently Active (05/28/2024) Received from [facility] Exercise Vital Sign On average, how many days per week do you engage in moderate to strenuous exercise (like a brisk walk)?: 5 days On average, how many minutes do you engage in exercise at this level?: 40 min Stress: Stress Concern Present (05/27/2024) Received from [facility] [place] [facility] [employer]ational Health - Occupational Stress Questionnaire Feeling of Stress : To some extent Social Connections: Not At Risk (05/28/2024) Received from [facility] Family and Community Support If for any reason you need help with day-to-day activities such as bathing, preparing meals, shopping, managing finances, etc., do you get the help you need?: I don't need any help How often do you feel lonely or isolated from those around you?: Sometimes Intimate Partner Violence: Not At Risk (08/19/2024) Received from [facility] Abuse Screen Feels Unsafe at Home or Work/School: no Feels Threatened by Someone: no Does Anyone Try to Keep You From Having Contact with Others or Doing Things Outside Your Home?: no Physical Signs of Abuse Present: no Housing Stability: Not At Risk (08/20/2024) Received from [facility] Housing Stability Current Living Arrangements: home Potentially [...] Info) Description 10/17/2024 8:30 AM EDT Appointment [facility] Ultrasound [address] [place] [address] 10/17/2024 9:15 AM EDT Routine Medical Office Building Obstetrics and Gynecology [address] [facility], [address] [place] [address] Laury Cruz MD [address] [facility] [address] [place] [address] 10/24/2024 8:00 AM EDT Office Visit [facility] [place] [address] [facility], [address] [place] [address] Nneka Vasquez MD [address] [place] [address] 12/25/2024 1:00 PM EST Office Visit [facility] Nephrology, Bone & Mineral Metabolism [address] [facility], [address] [place] [address] Scheduled Referrals Name Type Priority [...] on Day 3 / 08:47:57 pm SVE(s): [place] was 3.46 %, [id number] total SVE(s) SV Arrhythmia(s): 21 events, longest event 7 beats on Day 03:05:26 am, fastest event 111 bpm on Day 02:02:39 am PVC(s): [place] was 0.03 %, 189 total PVC(s), 1 [...] ECG Atrial Rate 84 BPM MUSE ECG [place] Interval 148 ms MUSE ECG QRSD Interval 74 ms MUSE ECG QT Interval 374 ms MUSE ECG QTC Interval 441 ms MUSE ECG P [place] 60 degrees MUSE ECG R [place] 36 degrees MUSE ECG T Wave [place] 55 degrees MUSE ECG Diagnosis Normal sinus rhythm with sinus arrhythmia MUSE ECG Diagnosis Normal ECG MUSE ECG Diagnosis MUSE ECG Diagnosis Confirmed by Abad South ([id number]) on 09/26/2024 12:13:59 PM MUSE ECG 09/26/2024 8:21 AM EDT 09/26/2024 12:13 PM EDT us Nneka Vasquez MD ECG ORDERABLES Final Resu lt MUSE ECG documented in this encounter Visit Diagnoses Diagnosis Syncope and collapse- Primary Atrial fibrillation, unspecified type (CMS/HCC) Palpitations Palpitations Syncope and collapse Supervision of high risk , antepartum- Primary documented in this encounter Additional Health Concerns Assessment Noted Time A fall risk assessment has been complete d for the patient 09/26/2024 8:15 AM EDT A Body Mass Index follow-up plan has been documented for the patient 09/27/2024 10:22 AM EDT documented as of this encounter Care Teams Supervisor Brake Repair Relationship Specialty Start Date End Date Norma Friedman, ADMINISTRATIVE COORDINATOR [address] [place] [address] PCP - General 09/23/24 Lizz Trinh, RN [facility] Registered Nurse Cardiology 09/26/24 documented as of this encounter
--- OUTSIDE RECORDS SUMMARY | 2024-09-26 09:06 | XMS_ITS | Encounter Summary ---
Author Organization [facility] Address [address] [place] [address] Care Team Providers Care Physicians And Surgeons Name Role Phone Elder Kadedev Coy SUCCESSFACTORS CONSULTANT Primary Care Provider +1- [phone] Lizz Trinh RN Unavailable Unavailable Reason for Referral * Cardiac Stress Testing (Routine) - Closed Specialty Diagnoses / Procedures Referred By Tarik pedersen Referred To Contact Cardiology Diagnoses Palpitations Syncope and collapse Procedures Adult Patch Monitor - 7 Day Nneka Vasquez MD [address] [place] [address] Phone: tel: fax: Referral ID Status Reason Start Date Expiration Date Visits Re quested Visits Authorized [id number] Closed 09/26/2024 03/28/2026 1 1 Reason for Visit * Cardiac Stress Testing (Routine) - Closed Specialty Diagnoses / Procedures Referred By Tarik pedersen Referred To Contact Cardiology Diagnoses Palpitations Syncope and collapse Procedures Adult Patch Monitor - 7 Day Nneka Vasquez MD [address] [place] [address] Phone: tel: fax: Referral ID Status Reason Start Date Expiration Date Visits Re quested Visits Authorized [id number] Closed 09/26/2024 03/28/2026 1 1 Encounter Details Date Type Department Care Team (Latest Contact Info) Description 09/26/2024 9:06 AM EDT - 09/26/2024 11:59 PM EDT Hospital Encounter Medical Office Building Cardiac Diagnostic Testing Medical Office Building Echo Lab [address], [address] [place] [address] Palpitations; Syncope and collapse Discharge [...] more drinks on one occasion? Never 09/23/2024 [place] Depression Scale Answer Date Recorded [place] Depression Scale Total 0 09/23/2024 The thought [...] 2 times a day. 09/02/2024 Prenat MV-Min w/Gz-Fkdvaa-LGR ( COMPLETE PO) 12/25/2018 thiamine (Vitamin B-1) 100 MG tablet Take 1 tablet by mouth 1 time each day. 09/01/2024 documented as of this encounter Plan of Treatment Upcoming Encounters Date Type Department Care Team ([facility] st Contact Info) Description 10/17/2024 8:30 AM EDT Appointment [facility] Ultrasound [address]nd [place] [address] 10/17/2024 9:15 AM EDT Routine Medical Office Building Obstetrics and Gynecology [address], [address] [place] [address] Laury Cruz MD [address] [place] [address] 10/24/2024 8:00 AM EDT Office Visit [facility] [place] [address], [address] [place] [address] Nneka Vasquez MD [address] [place] [address] 12/25/2024 1:00 PM EST Office Visit [facility] Nephrology, Bone & Mineral Metabolism [address], [address] [place] [address] documented as of this encounter [...] on Day 3 / :47:57 pm SVE(s): [place] was 3.46 %, [id number] total SVE(s) SV Arrhythmia(s): 21 events, longest event 7 beats on Day :05:26 am, fastest event 111 bpm on Day :02:39 am PVC(s): [place] was 0.03 %, 189 total PVC(s), 1 [...] documented as of this encounter Care Teams Physicians And Surgeons Relationship Specialty Start Date End Date Norma Friedman APRN [address] [place] [address] PCP - General 09/23/24 Lizz Trinh, RN [facility] Registered Nurse Cardiology 09/26/24 documented as of this encounter
[2024-10-16 08:58] VITALS: BMI 25.7
--- OUTSIDE RECORDS SUMMARY | 2024-10-16 09:09 | XMS_ITS | Clinical Summary ---
Author Organization [facility] Address [address] [place] [address] Care Team Providers Care Aged Or Disabled Carer Name Role Phone Unavailable Primary Care Provider Unavailabl e Source Comments [facility] is fully rolled out with thefollowing exceptions:General Clinical Research [facility] Social History Tobacco Use Types Packs/Day [...]
--- OUTSIDE RECORDS SUMMARY | 2024-10-16 09:09 | XMS_ITS | Encounter Summary ---
[facility] Address [address] [place] [id number] Care Team Providers Care Software Application Tester Name Role Phone IvyNorma goldberg JOLENE Primary Care Provider + [phone] Reason for Visit * Reason Onset Date Comments Advice Only 10/10/2024 Encounter Details Date Type Department Care Team (Late st Contact Info) Description 10/10/2024 Telephone [facility] MATERNAL MEDICINE [address] [facility] [place] [address] [place] [address] Lyudmila Germain, parts cleaner Only Social History Tobacco Use Types Packs/Day Years Used Date Smoking Tobacco: Never Smokeless Tobacco: Never Alcohol Use Standard Drinks/Week Comments Never 0 (1 standard drink = 0.6 oz pur e alcohol) [facility] Utilities Answer Date Recorded In the past 12 months has [employer], gas, oil, or water [employer] threatened to shut off services in [...] all 05/28/2024 [facility] [place] of Occupat ional Health - Occupational Stress [...] GED or equivalent No 05/28/2024 Preferred Language Sami 05/28/2024 PHQ-2 Answer Date Recorded Patient Health [...] Late entry: Patient called desiring appointment with [facility] due to hypokalemia and hypomagnesemia requiring infusions every other day. Per clinic coordinator, referral was received here last week but our physicians determined patient needs to continue receiving [facility] care at as she sees otherspeciality physicians (cardiology, nephrology) there as well. Discussed this with patient who states Dr. Weller () refused to see her again and she has no options. Patient reported her physicians at [facility] told her if she has another cardiac event she will . Upon reviewing notes from specialists at , cardiology note states patient will wear media monitor and return in 4 weeks to discuss r esults and delivery plans and monitoring. Patient states cardiology refuses to see her until she ispostpartum - although it appears she has an appointment on 10/24. Per note from nephrology at , limited options for treatment other than continued repletion. Informed patient our office will reach out to [facility] at to determine if there is an issue in scheduling her there and we will call her back. After our office talked to [facility], a nurse there states there is no issue with her scheduling and she is more than welcome to come back for appointments. Called patient back, informed her she is welcome to schedule a follow-up at [facility] and gave her their office number. documented in this encounter Plan of Treatment Upcoming Encounters Date Type Department Care Team (Late st Contact Info) Description 01/20/2025 3:30 PM EST Office Visit [facility] GASTROENTEROLOGY [address] [facility] [address] [place] [address] Robbin Escalante MD [address]20 [facility] [address] [place] [address] documented as of this encounter Visit Diagnoses Not on filedocumented in this encounter Additional Health Concerns Assessment Noted Time PHQ-2 Depression Total Score: 2 05/28/19 4:39 PM EDT documented as of this encounter Care Teams Software Application Tester Relationship Specialty Start Date End Date Norma Friedman APRN [address] [place] [address] [place] [address] PCP - General Family Medicine 05/14/24 documented as of this encounter
--- OUTSIDE RECORDS SUMMARY | 2024-10-16 09:09 | XMS_ITS | Encounter Summary ---
Author Organization Healthcare Address [address] [place] [address] Care Team Providers Care Bag Press Operator Name Role Phone Norma Friedman JOLENE Primary Care Provider +1- [phone] Lizz Trinh RN Unavailable Unavailable Encounter Details Date Type Department Care Team (Late st Contact Info) Description 10/16/2024 Results Follow-Up [facility] [place] [address] [facility] [place] [address] Nneka Block MD [address] [place] [address] Social History Tobacco Use Types Packs/Day Years [...] more drinks on one occasion? Never 09/23/2024 Meadow Depression Scale Answer Date Recorded Meadow Depression Scale Total 0 09/23/2024 The thought [...] 10/17/2024 8:30 AM EDT Appointment [facility] Ultrasound [address] [place] [address] 10/17/2024 9:15 AM EDT Routine Medical Office Building Obstetrics and Gynecology [address] [facility], [address] [place] [address] Laury Cruz MD [address] [place] [address] 10/24/2024 8:00 AM EDT Office Visit [facility] [place] [address] [facility], [address] [place] [address] Nneka Block MD [address] [place] [address] 12/25/2024 1:00 PM EST Office Visit [facility] [place] Nephrology, Bone & Mineral Metabolism [address] [facility], [address] [place] [address] documented as of this encounter Visit Diagnoses Not on filedocumented in this encounter Additional Health Concerns Assessment Noted Time A fall risk assessment has been complete d for the patient 09/26/2024 8:15 AM EDT A Body Mass Index follow-up plan has been documented for the patient 09/27/2024 10:22 AM EDT documented as of this encounter Care Teams Bag Press Operator Relationship Specialty Start Date End Date Norma Friedman APRN [address] [place] [address] PCP - General 09/23/24 Lizz Trinh, RN [facility] Registered Nurse Cardiology 09/26/24 documented as of this encounter
--- OUTSIDE RECORDS SUMMARY | 2024-10-16 09:09 | XMS_ITS | Encounter Summary ---
Author Organization Healthcare Address [address] [place] [address] Care Team Providers Care S3B Multi Sensor Operator Name Role Phone Norma Friedman JOLENE Primary Care Provider +1- [phone] Lizz Trinh RN Unavailable Unavailable Encounter Details Date Type Department Care Team (Late Contact Info) Description 07/22/2024 [facility] 800 [place] [address] Sandy Cardenas MD 1700 [facility] [address] [place] [address] Social History Tobacco Use Types Packs/Day Years [...] Info) Description 10/17/2024 8:30 AM EDT Appointment [facility] Ultrasound [address] [place] [address] 10/17/2024 9:15 AM EDT Routine Medical Office Building Obstetrics and Gynecology [address] [facility], [address] [place] [address] Laury Cruz MD [address] [facility] [address] [place] [address] 10/24/2024 8:00 AM EDT Office Visit [facility] [place] [address] [facility], [address] [place] [address] Nneka Block MD [address] [place] [address] 12/25/2024 1:00 PM EST Office Visit [facility] Nephrology, Bone & Mineral Metabolism [address] [facility], [address] [place] [address] documented as of this encounter Visit Diagnoses Not on filedocumented in this encounter Care Teams S3B Multi Sensor Operator Relationship Specialty Start Date End Date Norma Friedman APRN [address] [place] [address] PCP - General 09/23/24 Lizz Trinh, RN [facility] Registered Nurse Cardiology 09/26/24 documented as of this encounter
--- OUTSIDE RECORDS SUMMARY | 2024-10-16 09:09 | XMS_ITS | Clinical Summary ---
Author Organization [facility] [place] [address] Phone Care Team Providers Care Sander Setter Name Role Phone Unavailable Primary Care [...] migh t be different from the original. [facility] - Edwardo Ojeda MD Interventional Pain Protocol: NS Appt 03/29/22 Letter Sent Maxime report completed (EVERY 3 MONTHS) ( 03/23/22) Pharmacy: [facility] [address] [place] [address] - [phone] [facility] south - [phone] No known active problems Social History Tobacco [...] patient's age to complete this topic Insurance [employer] [id number]
--- OUTSIDE RECORDS SUMMARY | 2024-10-16 09:09 | XMS_ITS | Encounter Summary ---
Author Organization [facility] Address [address] [place] [address] Care Team Providers Care J2Ee Programmer Name Role Phone Elder Kadedev Coy APRN Primary Care Provider +1- [phone] Lizz Trinh RN Unavailable Unavailable Reason for Referral * Consultation (Routine) - Authorized Specialty Diagnoses / Procedures Referred By Tarik pedersen Referred To Contact Nephrology Diagnoses History of proteinuria syndrome care, subsequent , second trimester Staci Jain MD [address] [address] Phone: tel: fax: [facility] Nephrology, Bone & Mineral Metabolism [address] [facility], [address] [place] [address] Phone: tel: fax: Referral ID Status Reason Start Date Expiration Date Visits Requested Visits Authorized [id number] Authorized Specialty Services Required 07/22/2024 01/21/2026 1 1 Encounter Details Date Type Department Care Team (Late st Contact Info) Description 07/22/2024 [facility] 800 [place] [address] Staci Jain MD 1700 [place] [address] History of proteinuria syndrome (Primary Dx); care, [...] Info) Description 10/17/2024 8:30 AM EDT Appointment [facility] Ultrasound [address] [place] [address] 10/17/2024 9:15 AM EDT Routine Medical Office Building Obstetrics and Gynecology [address] [facility], [address] [place] [address] Laury Cruz MD [address] [facility] [address] [place] [address] 10/24/2024 8:00 AM EDT Office Visit [facility] [place] [address] [facility], [address] [place] [address] Nneka Block MD [address] [place] [address] 12/25/2024 1:00 PM EST Office Visit [facility] Nephrology, Bone & Mineral Metabolism [address] [facility], [address] [place] [address] Scheduled Referrals Name Type Priority Associated Diagnoses Orde r Schedule Ambulatory referral to Nephrology Outpatient Referral Routine History of proteinuria syndrome care, subsequent , second trimester Expected: 07/22/2024 (Approximate), Expires: 01/23/2026 documented as of this encounter Visit Diagnoses Diagnosis History of proteinuria syndrome- Primary care, subsequent , second trimester documented in this encounter Care Teams J2Ee Programmer Relationship Specialty Start Date End Date Norma Friedman APRN [address] [place] [address] PCP - General 09/23/24 Lizz Trinh, RN [facility] Registered Nurse Cardiology 09/26/24 documented as of this encounter
--- OUTSIDE RECORDS SUMMARY | 2024-10-16 09:09 | XMS_ITS | Encounter Summary ---
[facility] Address [address] [place] [id number] Care Team Providers Care Re Etcher Name Role Phone IvyKade goldbergjoseseven JOLENE Primary Care Provider + [phone] Encounter Details Date Type Department Care Team (Late st Contact Info) Description 09/26/2024 Documentation [facility] LABOR DELIVERY [address] [place] [address] Christy Zabala, RN Social History Tobacco Use [...] heating? Not hard at all 05/28/2024 [facility] [place] of Occupat ional Health - Occupational Stress [...] Review of chart reveals patient [facility] to [facility] to continue care. Will plan to review chart around [facility]C for delivery information. documented in this encounter Plan of Treatment Upcoming Encounters Date Type Department Care Team (Late st Contact Info) Description 01/20/2025 3:30 PM EST Office Visit [facility] GASTROENTEROLOGY [address] [address] Robbin Escalante MD [address] [address] documented as of this encounter Visit Diagnoses Not on filedocumented in this encounter Additional Health Concerns Assessment Noted Time PHQ-2 Depression Total Score: 2 05/28/19 25 4:39 PM EDT documented as of this encounter Care Teams Re Etcher Relationship Specialty Start Date End Date Norma Friedman APRN [address] [place] [address] [place] [address] PCP - General Family Medicine 05/14/24 documented as of this encounter
--- OUTSIDE RECORDS SUMMARY | 2024-10-16 09:09 | XMS_ITS | Encounter Summary ---
[facility] Address [address] [place] [id number] Care Team Providers Care Cleaning Laborer Name Role Phone Ivyashlyn Valentinoseven JOLENE Primary Care Provider + [phone] Encounter Details Date Type Department Care Team (Late st Contact Info) Description 06/26/2024 Results Follow-Up [facility] OBGYN [address] [address] Koby Roberts MD 1700 [place] [address] Social History Tobacco Use Types Packs/Day Years Used Date Smoking Tobacco: Never Smokeless Tobacco: Never Alcohol Use Standard Drinks/Week Comments Never 0 (1 standard drink = 0.6 oz pur e alcohol) [facility] Utilities Answer Date Recorded In the past 12 months has [employer], gas, oil, or water [employer] threatened to shut off services in your [...] and heating? Not hard at all 05/28/2024 [facility] [place] of Occupat ional Health - Occupational [...] Office Visit [facility] GASTROENTEROLOGY [address] [facility] [address] Robbin Escalante MD [address] [address] documented as of this encounter Visit Diagnoses Not on filedocumented in this encounter Additional Health Concerns Assessment Noted Time PHQ-2 Depression Total Score: 2 05/28/19 25 4:39 PM EDT documented as of this encounter Care Teams Cleaning Laborer Relationship Specialty Start Date End Date Norma Friedman APRN [address] [place] [address] [place] [address] PCP - General Family Medicine 05/14/24 documented as of this encounter
--- OUTSIDE RECORDS SUMMARY | 2024-10-16 09:10 | XMS_ITS | Encounter Summary ---
[facility] Address [address] [place] [address] Care Team Providers Care Oil Paint Shader Name Role Phone Elder Norma FERNÁNDEZ Primary Care Provider + [phone] Encounter Details Date Type Department Care Team (Latest Contact Info) Description 08/29/2024 Travel Social History Tobacco Use Types Packs/Day Years Used Date Smoking Tobacco: Never Smokeless Tobacco: Never Alcohol Use Standard Drinks/Week Comments Never 0 (1 standard drink = 0.6 oz pur e alcohol) [facility] Utilities Answer Date Recorded In the past 12 months has [employer] electric, gas, oil, or water company [...] at all 05/28/2024 [facility] [place] of Occupat ional Health - Occupational Stress [...] GED or equivalent No 05/28/2024 Preferred Language Hebrew 05/28/2024 PHQ-2 Answer Date Recorded Patient Health [...] Visit [facility] GASTROENTEROLOGY [address] [facility] [address] [place] [address] Robbin Escalante MD 1720 [facility] [address] [place] [address] documented as of this encounter Visit Diagnoses Not on filedocumented in this encounter Additional Health Concerns Assessment Noted Time PHQ-2 Depression Total Score: 2 05/28/19 25 4:39 PM EDT documented as of this encounter Care Teams Oil Paint Shader Relationship Specialty Start Date End Date Norma Friedman APRN [address] [place] [address] [place] [address] PCP - General Family Medicine 05/14/24 documented as of this encounter
--- OUTSIDE RECORDS SUMMARY | 2024-10-16 09:10 | XMS_ITS | Encounter Summary ---
[facility] Address [address] [place] [address] Care Team Providers Care Advertising Representative Name Role Phone Ivyashlyn Norma FERNÁNDEZ Primary Care Provider + [phone] Encounter Details Date Type Department Care Team (Late st Contact Info) Description 09/02/2024 Telephone [facility] OBGYN [address] [address] Staci Jain MD 1700 [place] [id number] Social History Tobacco Use Types Packs/Day Years Used Date Smoking Tobacco: Never Smokeless Tobacco: Never Alcohol Use Standard Drinks/Week Comments Never 0 (1 standard drink = 0.6 oz pur e alcohol) [facility] Utilities Answer Date Recorded In the past 12 months has [employer], oil, or water [employer] threatened to shut off services in [...] and heating? Not hard at all 05/28/2024 [facility] of Occupat ional Health - Occupational [...] She has decided to transfer care to [facility] as it iscloser to her like 15 min away. She wants you (Dr. Jain) to know this has nothing to you but rather the nurses and conventional mortgage underwriter doctor did not relay the labs to you in a faster fashion. She said you can call her if you want and she is not angry. Dr. Jain was notified. * Telephone Encounter - Frederick Gruber RN - 09/02/2024 3:10 PM EDT Websupportt message sent to the pt regarding outpt infusion apt tomorrow at [facility]. documented in this encounter Plan of Treatment Upcoming Encounters Date Type Department Care Team (Late st Contact Info) Description 01/20/2025 3:30 PM EST Office Visit [facility] GASTROENTEROLOGY [address] [place] [address] [place] [address] Robbin Escalante MD 1720 [facility] [address] [place] [address] documented as of this encounter Visit Diagnoses Not on filedocumented in this encounter Additional Health Concerns Assessment Noted Time PHQ-2 Depression Total Score: 2 05/28/19 25 4:39 PM EDT documented as of this encounter Care Teams Advertising Representative Relationship Specialty Start Date End Date Norma Friedman APRN [address] [place] [address] [place] [address] PCP - General Family Medicine 05/14/24 documented as of this encounter
--- OUTSIDE RECORDS SUMMARY | 2024-10-16 09:10 | XMS_ITS | Referral Summary ---
Author Organization [facility] ([place], [place], [place], [place]) Address [address] [place] [address] Care Team Providers Care Rubber Mill Tender Name Role Phone Unavailable Primary Care [...]
--- OUTSIDE RECORDS SUMMARY | 2024-10-16 09:10 | XMS_ITS | Encounter Summary ---
[facility] [address] [place] [address] Care Team Providers Care Advanced Manufacturing Associate Name Role Phone Norma Friedman APRN Primary Care Provider + [phone] Encounter Details Date Type Department Care Team (Late st Contact Info) Description 08/19/2024 Telephone [facility] OBGYN [address] [place] [address] Jacey Mathews, TREAD BUILDER 17[address] [facility] [address] [place] [address] Social History Tobacco Use Types Packs/Day Years Used Date Smoking Tobacco: Never Smokeless Tobacco: Never Alcohol Use Standard Drinks/Week Comments Never 0 (1 standard drink = 0.6 oz pur e alcohol) [facility] Utilities Answer Date Recorded In the past 12 months has [employer], oil, or water [employer] threatened to shut off services in your [...] 05/28/2024 [facility] of Occupat ional [facility] - Occupational Stress Questionnaire Answer Date [...] Office Visit [facility] GASTROENTEROLOGY [address] [address] Robbin Escalante MD [address] [address] documented as of this encounter Visit Diagnoses Not on filedocumented in this encounter Additional Health Concerns Assessment Noted Time PHQ-2 Depression Total Score: 2 05/28/19 25 4:39 PM EDT documented as of this encounter Care Teams Advanced Manufacturing Associate Relationship Specialty Start Date End Date Norma Friedman APRN [address] [place] [address] [place] [address] PCP - General Family Medicine 05/14/24 documented as of this encounter
--- OUTSIDE RECORDS SUMMARY | 2024-10-16 09:10 | XMS_ITS | Encounter Summary ---
[facility] Address [address] [place] [id number] Care Team Providers Care Die Machine Operator Name Role Phone Ivyashlyn Norma FERNÁNDEZ Primary Care Provider + [phone] Encounter Details Date Type Department Care Team (Late st Contact Info) Description 08/28/2024 Telephone [facility] OBGYN [address] [address] Staci Jain MD 1700 [place] [id number] Social History Tobacco Use Types Packs/Day Years Used Date Smoking Tobacco: Never Smokeless Tobacco: Never Alcohol Use Standard Drinks/Week Comments Never 0 (1 standard drink = 0.6 oz pur e alcohol) [facility] Utilities Answer Date Recorded In the past 12 months has [employer], gas, oil, or water [employer] threatened to shut off services in your [...] sit with a family member admitted to [facility] today and does not know if she can make it back for labs (BMP). She does have an appt [facility] at 10 am tomorrow. Advisedthat it would [...] states she was supposed to come into [facility] office today to have labs drawn however [facility]is [facility] is wondering if she could just have labs drawn there? documented in this encounter Plan of Treatment Upcoming Encounters Date Type Department Care Team (Late st Contact Info) Description 01/20/2025 3:30 PM EST Office Visit [facility] GASTROENTEROLOGY 1720 [facility] [address] [place] [address] Robbin Escalante MD [address]20 [facility] [address] [place] [address] documented as of this encounter Visit Diagnoses Not on filedocumented in this encounter Additional Health Concerns Assessment Noted Time PHQ-2 Depression Total Score: 2 05/28/19 25 4:39 PM EDT documented as of this encounter Care Teams Die Machine Operator Relationship Specialty Start Date End Date Norma Friedman APRN [address] [place] [address] [place] [address] PCP - General Family Medicine 05/14/24 documented as of this encounter
--- OUTSIDE RECORDS SUMMARY | 2024-10-16 09:10 | XMS_ITS | Clinical Summary ---
Author Organization [facility] Address [address] [place] [address] Care Team Providers Care Core Shaper Top Name Role Phone Norma Friedman APRN Primary Care Provider + [phone] Allergies Active Allergy Reactions Criticality Noted Date [...] Type Department Care Team Description 5 Telephone [facility] MATERNAL MEDICINE [address] [facility] [place] [address] [place] [address] Lyudmila Germain, advertising copy writer Only 5 Documentation [facility] LABOR DELIVERY [address] [place] [address] Christy Zabala RN 5 Results Follow-Up [facility] OBGYN [address] [place] [address] Rob Wharton MD 5 Telephone [facility] OBGYN [address]00 [facility] [address] [place] [address] Rob Wharton MD 5 10:00 AM EDT Routine [facility] [place] [address] Rob Wharton MD [place]: 26w4d 5 Travel 5 Telephone [facility] OBGYN 1700 [facility] [address] [place] [phone] Rob Wharton MD 5 Telephone [facility] [place] [address] Rob Wharton MD 5 1:44 PM EDT Anesthesia Event [facility] ENDO SUITES [address] [place] [address] Akash Anguiano MD Lanham, John, CRNA 5 1:33 PM EDT - 5 2:05 PM EDT Surgery [facility] ENDO SUITES [address] [facility] [place] [address] Blu Alvarado MD ESOPHAGOGASTRODUODENOSCOPY [[id number] (CPT )] 5 1:59 PM EDT - 5 4:28 PM EDT Hospital Encounter [facility] ANTEPARTUM [address] [place] [address] Rob Wharton MD Brunner, Mark I, MD Dysphagia, unspecified type (Primary Dx) Discharge Disposition: Home or Self Care 5 10:15 AM EDT Routine [facility] OBGYN [address] [place] [address] Jacey Mathews, [employer]RE[employer] OFF[employer] [place] [employer] [place] [employer] GA: 25w 5 Telephone [facility] OBGYN [address] [place] [address] Jacye Mathews, [employer] [place] [employer] [place] [employer] 5 Travel 5 Patient Outreach [facility] LABOR DELIVERY [address] [place] [address] Christy Zabala RN 5 9:10 AM EDT Routine [facility] OBGYN 1700 [facility] [address] [place] [address] Rob Wharton MD [place]: 21w 5 8:00 AM EDT Office Visit [facility] MATERNAL MEDICINE 1700 [facility] [address] [place] [address] Sebastian Larsen MD History of prior with small for gestational age (Primary Dx) 5 7:44 AM EDT - 5 11:59 PM EDT Hospital Encounter [facility] US PER DIAG CTR [address] [place] [address] Kelly Delgado, [employer] [place] [employer] [place] care, antepartum, unspecified ; High risk due [...] 0.6 oz pur e alcohol) [facility] Utilities Answer Date Recorded In the [...] hard at all 05/28/2024 [facility] [place] of Occupat ional Health - Occupational Stress [...] GED or equivalent No 05/28/2024 Preferred Language Angolan 05/28/2024 PHQ-2 Answer Date Recorded Patient Health [...] Visit [facility] GASTROENTEROLOGY [address] [facility] [address] [place] [address] Robbin Escalante MD [address] [facility] [address] [place] [address] Health Maintenance Due Date Last [...] TEST Routine 08/19/2024 4:17 PM EDT [facility] Routine 08/19/2024 3:25 PM EDT [...] 10:02 AM EDT Multigravida in second trimester [facility] Routine 07/22/2024 9:10 AM [...] - 08/30/2024 6:09 AM EDT Performed at: [address] [place] [id number] Sap Bi Developer: Kevin Harman MD, Phone: [phone] Patient Fasting: N Rob Wharton MD LAB BLOOD ORDERABLES Final Result [facility] (AMBULATORY) [address] [place] [address], [facility] [address] [place] [address], [place] [phone] * (ABNORMAL) Comprehensive Metabolic Panel (08/29/2024 11:05 AM EDT) Only the most recent of2 resultswithin the time period is included. [place] [...] - 08/30/2024 6:09 AM EDT Performed at: [address] [place] [id number] Sap Bi Developer: Kevin Harman MD, Phone: [phone] Patient Fasting: N us Rob Wharton MD LAB BLOOD ORDERABLES Final Result [facility] (AMBULATORY) [address] [place] [address], [facility] [address] [place] [address], [place] [phone] * (ABNORMAL) POC Urinalysis Dipstick (08/29/2024 10:13 AM EDT) Only the most recent of2 resultswithin the time period is included. Glucose, UA Negative Negative mg/dL [facility] Protein, POC Trace(A) Negative mg/dL [facility] Urine 08/29/2024 10:1 3 AM EDT Rob Wharton MD POINT OF CARE TEST OR DERABLES Final Result [facility]ORY
[address] [place] [address], [place] [phone] * BH AN ETT AIRWAY (08/20/2024 2:02 [...] symmetric chest rise and fall Liborio Peralta DEAF INTERPRETER ANESTHESIA ORDERABLES Final Res ult * Tissue Pathology Exam (08/20/2024 1:55 PM EDT) Case Report Surgical Pathology Report Case: [id number] Authorizing Provider: Blu Alvarado MD Collected: 08/20/2024 01:55 PM Ordering Location: [facility] Received: 08/20/2024 02:14 PM ENDO SUITES Pathologist: Khalida Rhoades DO Specimen: Gastric, Antrum, antrum bx for path 08/22/2024 9:18 AM EDT [facility] Clinical Information Dysphagia, unspecified type 08/22/2024 9:18 AM EDT [facility] Final Diagnosis Stomach, antrum, biopsy: 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 pylori is negative (no organisms are identified) Negative for intestinal metaplasia, dysplasia, or malignancy 08/22/2024 9:18 AM EDT [facility]ORATORY at 0918 EDT Gross Description 1. Gastric, Antrum. Received in formalin labeled antrum biopsy is a 0.4 x 0.2 x 0.2 cm pink-see soft tissue fragment submitted entirely in a single cassette. HDM 08/22/2024 9:18 AM EDT [facility] Microscopic Description The slides are reviewed and demonstrate histopathologic features supporting the above rendered diagnosis. 08/22/2024 9:18 AM EDT [facility] Tissue Pyloric antrum structure / Unknown 08/20/2024 1:55 PM EDT 08/20/2024 2:14 PM EDT us Blu Alvarado MD PATHOLOGY/CYTOLOGY ORDERABLES Final Result [facility]
[address] [place] [address], * Upper GI Endoscopy (08/20/2024 1:09 PM EDT) us Blu Alvarado MD INTERFACE NEEDS Final Result * (ABNORMAL) Basic Metabolic Panel (08/20/2024 5:25 AM EDT) Glucose 84 65 - 99 mg/dL 08/20/2024 6:13 AM EDT [facility] BUN 2.3(L) 6.0 - 20.0 mg/dL 08/20/2024 6:13 AM EDT [facility] Creatinine 0.51(L) 0.57 - 1.00 mg/dL 08/20/2024 6:13 AM EDT [facility] Sodium 139 136 - 145 mmol/L 08/20/2024 6:13 AM EDT [facility] Potassium 3.5 3.5 - 5.2 mmol/L 08/20/2024 6:13 AM EDT [facility] Chloride 109(H) 98 - 107 mmol/L 08/20/2024 6:13 AM EDT [facility] CO2 23.5 22.0 - 29.0 mmol/L 08/20/2024 6:13 AM EDT [facility] Calcium 7.8(L) 8.6 - 10.5 mg/dL 08/20/2024 6:13 AM EDT [facility] BUN/Creatinine Ratio 4.5(L) 7.0 - 25.0 08/20/2024 6:13 AM EDT [facility] Anion Gap 6.5 5.0 - 15.0 mmol/L 08/20/2024 6:13 AM EDT [facility] eGFR 126.6 >60.0 mL/min/1.7 3 08/20/2024 6:13 AM EDT [facility] Blood Venipuncture / Unknown 08/20/2024 5:25 AM EDT 08/20/2024 5:46 AM EDT Narrative [facility] - 08/20/2024 6:13 AM EDT GFR [...] ORDERABLES Final Resu lt Performing Organization Address City/[facility] Co de Phone Number [facility]
[address] [place] [address], * (ABNORMAL) Potassium (08/19/2024 8:53 PM EDT) Potassium 2.7(L) 3.5 - 5.2 mmol/L 08/19/2024 9:20 PM EDT [facility] Blood Venipuncture / Unknown 08/19/2024 8:53 PM EDT 08/19/2024 9:04 PM EDT Kt Fan DO LAB BLOOD ORDERABLES Final Result Performing Organization Address [facility] Co de Phone Number [facility]
[address] [place] [address], [place] [phone] * ABO RH Specimen Verification (08/19/2024 4:34 PM EDT) ABO Type O 08/19/2024 7:39 PM EDT [facility] BB LABORATORY RH type Positive 08/19/2024 7:39 PM EDT [facility] LABOR[facility]ORY Blood Venipuncture / Unknown 08/19/2024 4:34 PM EDT 08/19/2024 4:53 PM EDT Rob Wharton MD BLOOD BANK TEST ORDER FRANCO Final Result [facility] BB LABORATORY
[address] [place] [address], * Critical [facility] hospital [facility] (08/19/2024 3:25 PM EDT) Only the most recent of2 resultswithin the time period is included. Anatomical Region Laterality Modality Ultrasound 08/19/2024 3:09 PM EDT Narrative 08/19/2024 4:54 PM EDT PAT NAME: CAROLE GIRARD MED REC#: [id number] DA: [id number] PAT GEND: F PAT TYPE: E EXAM TRAVIS: [id number] REF PHYS ROB WHARTON Comparison Studies The [...] EFW (oz) 9 oz EFW by: Hadlock ([id number]) Extended Cav. septi pel. tr 4.7 mm Engine Installer 3.8 mm CM 7.5 mm 84% [...] Heart / Thorax 3-vessel view: Appears normal 1-ejccnq-yyzsfbn view: Appears normal Stomach: Appears normal Kidneys: [...] in 4wks for growth. Coding ======= Description: 57335-24 Follow Up Breakdown Person: RT Annetta Hartamnn , [facility] Physician: Jo Chappell MD Electronically signed by: Jo Chappell MD at: 16:54 Procedure Note Jo Chappell MD - 08/19/2024 PAT NAME: CAROLE GIRARD MED REC#: [id number] DA: 1990 PAT GEND: F PAT TYPE: E EXAM TRAVIS: [id number] REF PHYS ROB WHARTON Comparison Studies The findings of this study are compared to the prior ultrasound studydated 07/22/24 Patient Status Inpatient Indication ======== History of c/s x1. History of . Vaginal bleeding. Maternal Assessment Vsduhs129 cm Height (ft)5 ft Height (in)4 in Iblxoy69 kg Weight (lb)158 lb BMI27.31 kg/m Method ======= Transabdominal ultrasound examination. View: Limited by patient bodyhabitus ========= Love . Number of fetuses: 1 Dating ====== Method of dating:based on stated DUSTY GA by prior [id number] w + 1 d DUSTY by prior [...] Hadlock Femur44.9 mm 24w 6d 27% Hadlock Iysexam14.3 mm 25w 3d 50% Jamal HC / AC1.16 RVT079 g 24w 2d 16% Hadlock EFW (lb)1 lb EFW (oz)9 oz EFW by:Hadlock ([id number]) Extended Cav. septi pel. tr4.7 mm Vp3.8 mm CM7.5 mm 84% Nicolaides Head / Face / Neck Cephalic index0.71 <1% Nicolaides Extremities / Bony Struc FL / BPD0.78 FL / HC0.20 FL / AC0.23 Other Structures [id number] bpm General Evaluation Cardiac activity present. FHR [...] normal Heart / Thorax 3-vessel view:Appears normal 4-ijizbv-jwieqgi view:Appears normal Stomach:Appears normal Kidneys:Appears normal Bladder:Appears [...] office in 4wks for growth. Coding ======= Description:[id number] Follow Up Breakdown Person: RT Annetta Hartmann , [facility] Physician: Jo Chappell MD Electronically signed by: Jo Chappell MD at: 16:54 us Kt Fan DO [facility] US ORDERABLES Final Res ult * Urinalysis, Microscopic Only - Urine, Clean Catch (08/19/2024 3:02 PM EDT) RBC, UA 0-2 None Seen, 0-2 /HPF 08/19/2024 3:33 PM EDT [facility] WBC, UA 0-2 None Seen, 0-2 /HPF 08/19/2024 3:33 PM EDT [facility] Bacteria, UA None Seen None Seen /HPF 08/19/2024 3:33 PM EDT [facility] Squamous Epithelial Cells, UA 0-2 None Seen, 0-2 /HPF 08/19/2024 3:33 PM EDT [facility] Hyaline Casts, UA None Seen None Seen /LPF 08/19/2024 3:33 PM EDT [facility] Methodology Automated Microscopy 08/19/2024 3:33 PM EDT [facility] Urine Urine specimen obtained by clean catch procedure / Unknown Collection / Unknown 08/19/2024 3:02 PM EDT 08/19/2024 3:13 PM EDT us Kt Fan DO URINE ORDERABLES Final Resu lt [facility]
[address] [place] [address], * (ABNORMAL) Urinalysis With Microscopic If Indicated (No Culture) - Urine, Clean Catch (08/19/2024 3:02 PM EDT) Color, UA Yellow Yellow, Straw 08/19/2024 3:33 PM EDT [facility] Appearance, UA Clear Clear 08/19/2024 3:33 PM EDT [facility] pH, UA >=9.0(H) 5.0 - 8.0 08/19/2024 3:33 PM EDT [facility] Specific [place], UA 1.018 1.005 - 1.030 08/19/2024 3:33 PM EDT [facility] Glucose, UA Negative Negative 08/19/2024 3:33 PM EDT [facility] Ketones, UA 15 mg/dL (1+)(A) Negative 08/19/2024 3:33 PM EDT [facility] Bilirubin, UA Negative Negative 08/19/2024 3:33 PM EDT [facility] Blood, UA Negative Negative 08/19/2024 3:33 PM EDT [facility] Protein, UA 30 mg/dL (1+)(A) Negative 08/19/2024 3:33 PM EDT [facility] Leuk Esterase, UA Negative Negative 08/19/2024 3:33 PM EDT [facility] Nitrite, UA Negative Negative 08/19/2024 3:33 PM EDT [facility] Urobilinogen, UA 1.0 E.U./dL 0.2 - 1.0 E.U./dL 08/19/2024 3:33 PM EDT [facility] Urine Urine specimen obtained by clean catch procedure / Unknown Collection / Unknown 08/19/2024 3:02 PM EDT 08/19/2024 3:13 PM EDT Kt Fan DO URINE ORDERABLES Final Resu lt [facility]
[address] [place] [address], * (ABNORMAL) CBC Auto Differential (08/19/2024 3:02 PM EDT) WBC 9.19 3.40 - 10.80 10*3/mm3 08/19/2024 3:23 PM EDT [facility] RBC 3.58(L) 3.77 - 5.28 10*6/mm3 08/19/2024 3:23 PM EDT [facility] Hemoglobin 10.5(L) 12.0 - 15.9 g/dL 08/19/2024 3:23 PM EDT [facility] Hematocrit 31.4(L) 34.0 - 46.6 % 08/19/2024 3:23 PM EDT [facility] MCV 87.7 79.0 - 97.0 fL 08/19/2024 3:23 PM EDT [facility] MCH 29.3 26.6 - 33.0 pg 08/19/2024 3:23 PM EDT [facility] MCHC 33.4 31.5 - 35.7 g/dL 08/19/2024 3:23 PM EDT [facility] RDW 13.4 12.3 - 15.4 % 08/19/2024 3:23 PM EDT [facility] RDW-SD 42.4 37.0 - 54.0 fl 08/19/2024 3:23 PM EDT [facility] MPV 12.0 6.0 - 12.0 fL 08/19/2024 3:23 PM EDT [facility] Platelets 241 140 - 450 10*3/mm3 08/19/2024 3:23 PM EDT [facility] Neutrophil % 66.8 42.7 - 76.0 % 08/19/2024 3:23 PM EDT [facility] Lymphocyte % 24.4 19.6 - 45.3 % 08/19/2024 3:23 PM EDT [facility] Monocyte % 7.6 5.0 - 12.0 % 08/19/2024 3:23 PM EDT [facility] Eosinophil % 0.7 0.3 - 6.2 % 08/19/2024 3:23 PM EDT [facility] Basophil % 0.2 0.0 - 1.5 % 08/19/2024 3:23 PM EDT [facility] Immature Grans % 0.3 0.0 - 0.5 % 08/19/2024 3:23 PM EDT [facility] Neutrophils, Absolute 6.14 1.70 - 7.00 10*3/mm3 08/19/2024 3:23 PM EDT [facility] Lymphocytes, Absolute 2.24 0.70 - 3.10 10*3/mm3 08/19/2024 3:23 PM EDT [facility] Monocytes, Absolute 0.70 0.10 - 0.90 10*3/mm3 08/19/2024 3:23 PM EDT [facility] Eosinophils, Absolute 0.06 0.00 - 0.40 10*3/mm3 08/19/2024 3:23 PM EDT [facility] Basophils, Absolute 0.02 0.00 - 0.20 10*3/mm3 08/19/2024 3:23 PM EDT [facility] Immature Grans, Absolute 0.03 0.00 - 0.05 10*3/mm3 08/19/2024 3:23 PM EDT [facility] nRBC 0.0 0.0 - 0.2 /100 WBC 08/19/2024 3:23 PM EDT [facility] Blood Line / Unknown 08/19/2024 3: 02 PM EDT 08/19/2024 3:10 PM EDT Kt Fan DO LAB BLOOD ORDERABLES Final Result [facility]
[address] [place] [address], * Protein / Creatinine Ratio, Urine - Urine, Clean Catch (08/19/2024 3:02 PM EDT) Protein/Creati nine Ratio, Urine 126.1 0.0 - 200.0 mg/G Crea 08/20/2024 12:47 AM EDT [facility] Creatinine, Urine 148.3 mg/dL 08/20/2024 12:47 AM EDT [facility] Total Protein, Urine 18.7 mg/dL 08/20/2024 12:47 AM EDT [facility] Urine Urine specimen obtained by clean catch procedure / Unknown Collection / Unknown 08/19/2024 3:02 PM EDT 08/19/2024 4:26 PM EDT Kt Fan DO URINE ORDERABLES Final Resu lt [facility]
[address] [place] [address], * Type & Screen (08/19/2024 3:02 PM EDT) ABO Type O 08/19/2024 3:51 PM EDT [facility] LABORATORY RH type Positive 08/19/2024 3:51 PM EDT [facility] Antibody Screen Negative 08/19/2024 3:51 PM EDT [facility] T&S Expiration Date 08/22/2024 11:59:59 PM 08/19/2024 3:51 PM EDT [facility] Blood Line / Unknown 08/19/2024 3: 02 PM EDT 08/19/2024 3:15 PM EDT Kt Fan DO BLOOD BANK TEST ORDERABLES Edited Result - Final Performing Organization Address City/[facility]/ZIP Co de Phone Number [facility]
[address] [place] [address], * (ABNORMAL) Magnesium (08/19/2024 3:02 PM EDT) Magnesium 1.5(L) 1.6 - 2.6 mg/dL 08/19/2024 5:12 PM EDT [facility] Blood Line / Unknown 08/19/2024 3: 02 PM EDT 08/19/2024 3:10 PM EDT us Kt Fan DO LAB BLOOD ORDERABLES Final Result [facility]
[address] [place] [address], * Lipase (08/19/2024 3:02 PM EDT) Lipase 13 13 - 60 U/L 08/19/2024 3:36 PM EDT [facility] Blood Line / Unknown 08/19/2024 3: 02 PM EDT 08/19/2024 3:10 PM EDT Kt Fan DO LAB BLOOD ORDERABLES Final Result Performing Organization Address City/[facility]/ZIP Co de Phone Number [facility]
[address] [place] [address], * Amylase (08/19/2024 3:02 PM EDT) Pathologist [facility] Amylase 73 28 - 100 U/L 08/19/2024 3:36 PM EDT [facility] Blood Line / Unknown 08/19/2024 3: 02 PM EDT 08/19/2024 3:10 PM EDT Kt Fan DO LAB BLOOD ORDERABLES Final Result Performing Organization Address [facility] de Phone Number [facility]
[address] [place] [address], * Hepatitis C Antibody (04/12/2024) Pathologist [facility] Hep C Virus Ab negative Blood Historical Provider LAB BLOOD ORDERABLES Lena l Result from Last 3 Months or Most Recently Relevant to Health Maintenance Insurance [facility] Care Teams Core Shaper Top Relationship Specialty Start Date End Date Norma Friedman APRN [address] [place] G3 RAFAELA APPIAH [id number] PCP - General Family Medicine 05/14/24
--- OUTSIDE RECORDS SUMMARY | 2024-10-16 09:10 | XMS_ITS | Encounter Summary ---
[facility] Address [address] [place] [id number] Care Team Providers Care Furniture Removalist'S Assistant Name Role Phone IvyKade goldbergjoseseven JOLENE Primary Care Provider + [phone] Encounter Details Date Type Department Care Team (Late st Contact Info) Description 09/03/2024 Results Follow-Up [facility] OBGYN [address] [place] [address] Staci Jain MD 1700 [facility] [address] [place] [address] Social History Tobacco Use Types Packs/Day Years Used Date Smoking Tobacco: Never Smokeless Tobacco: Never Alcohol Use Standard Drinks/Week Comments Never 0 (1 standard drink = 0.6 oz pur e alcohol) [facility] Utilities Answer Date Recorded In the past 12 months has [employer], gas, oil, or water [employer] threatened to shut off services in your [...] 05/28/2024 [facility] Occupat ional Health - [...] [facility] [address] [address] Robbin Escalante MD [address] [address] documented as of this encounter Visit Diagnoses Not on filedocumented in this encounter Additional Health Concerns Assessment Noted Time PHQ-2 Depression Total Score: 2 05/28/19 4:39 PM EDT documented as of this encounter Care Teams Furniture Removalist'S Assistant Relationship Specialty Start Date End Date Norma Friedman APRN [address] [place] G3 RAFAELA APPIAH [id number] PCP - General Family Medicine 05/14/24 documented as of this encounter
--- OUTSIDE RECORDS SUMMARY | 2024-10-16 09:10 | XMS_ITS | Encounter Summary ---
[facility] Address [address] [place] [address] Care Team Providers Care Telephone Lineman Name Role Phone vIyashlyn Norma FERNÁNDEZ Primary Care Provider + [phone] Encounter Details Date Type Department Care Team (Late st Contact Info) Description 08/27/2024 Telephone [facility] OBGYN [address] [place] [address] Satci Jain MD 1700 [facility] [address] [place] [address] Social History Tobacco Use Types Packs/Day Years Used Date Smoking Tobacco: Never Smokeless Tobacco: Never Alcohol Use Standard Drinks/Week Comments Never 0 (1 standard drink = 0.6 oz pur e alcohol) [facility] Utilities Answer Date Recorded In the past 12 months has [employer], [employer], oil, or water [employer] threatened to shut off services in your [...] hard at all 05/28/2024 [facility] of Occupat ional Health - Occupational Stress [...] Office Visit [facility] [address] [phone] Robbin Escalante MD [address] [address] documented as of this encounter Visit Diagnoses Diagnosis History of hypokalemia- Primary documented in this encounter Additional Health Concerns Assessment Noted Time PHQ-2 Depression Total Score: 2 05/28/19 25 4:39 PM EDT documented as of this encounter Care Teams Telephone Lineman Relationship Specialty Start Date End Date Norma Friedman APRN [address] [place] G3 RAFAELA APPIAH [id number] PCP - General Family Medicine 05/14/24 documented as of this encounter
--- OUTSIDE RECORDS SUMMARY | 2024-10-16 09:10 | XMS_ITS | Encounter Summary ---
[facility] Organization [facility] Address [address] [place] [address] Care Team Providers Care Retail Event Assistant Name Role Phone Elder Norma FERNÁNDEZ Primary Care Provider + [phone] Encounter Details Date Type Department Care Team (Latest Contact Info) Description 08/19/2024 Travel Social History Tobacco Use Types Packs/Day Years Used Date Smoking Tobacco: Never Smokeless Tobacco: Never Alcohol Use Standard Drinks/Week Comments Never 0 (1 standard drink = 0.6 oz pur e alcohol) [facility] Utilities Answer Date Recorded In the past 12 months has [employer] electric, gas, oil, or water company threatened [...] and heating? Not hard at all 05/28/2024 [facility] of Occupat ional Health - Occupational Stress [...] 2:34 PM EDT Nneka Cross RN * [place] Suicide Severity Rating Scale (Screener/Recent Self-Report) Question Answer Date of Assessment Author 6. Suicidal Behavior (Lifetime) No 2:34 PM EDT Nneka Cross RN documented as of this encounter Plan of Treatment Upcoming Encounters Date Type Department Care Team (Late st Contact Info) Description 01/20/2025 3:30 PM EST Office Visit [facility] GASTROENTEROLOGY [address] [address] Robbin Escalante MD [address] [address] documented as of this encounter Visit Diagnoses Not on filedocumented in this encounter Additional Health Concerns Assessment Noted Time PHQ-2 Depression Total Score: 2 05/28/19 25 4:39 PM EDT documented as of this encounter Care Teams Retail Event Assistant Relationship Specialty Start Date End Date Norma Friedman APRN [address] [place] RAFAELA APPIAH [address] PCP - General Family Medicine 05/14/24 documented as of this encounter
--- OUTSIDE RECORDS SUMMARY | 2024-10-16 09:10 | XMS_ITS ---
Author Organization [facility] Address [address] [place] [address] Care Team Providers Care Hat Brusher Machine Name Role Phone Norma Friedman APRN Primary Care Provider Motherhood Connection Status:Engaged (Active) Start date:05/23/2024 Enrollment date:05/23/2024 Case Team Name Relationship Phone Bindu Castellon RN Nurse Navigator Christy Zabala RN(Responsible Staff) Nurse Navig ator Continued Care and Services Coordination
--- OUTSIDE RECORDS SUMMARY | 2024-10-16 09:10 | XMS_ITS ---
Author Organization [facility] Address [address] [place] [address] Care Team Providers Care Shop Clerk Name Role Phone Unavailable Primary Care Provider Unavailabl e Transplant Episode Kidney Potential Donor [facility] ([place], [place]) - [facility] Referred on 05/03/2022 Marked as Deferred on 05/04/2022 Reason: Other Kidney CoordinatorNadine Augustin R.N. Phone: N/A Fax: N/A Email: N/A Care Team Name Role Phone Fax Email Nadine Augustin R.N. Kidney Coordinator N/A N/A N/A Events Pre-Donation Referred: 05/03/2022
--- OUTSIDE RECORDS SUMMARY | 2024-10-16 09:11 | XMS_ITS | Encounter Summary ---
[facility] [address] [place] [id number] Care Team Providers Care Warp Knitter Name Role Phone Elder Norma FERNÁNDEZ Primary Care Provider + [phone] Encounter Details Date Type Department Care Team (Late st Contact Info) Description 07/07/2024 Results Follow-Up [facility] OBGYN [address] [place] [address] [place] [phone] Kelly Delgado APRN [address] In[address] [facility] [address] [place] [address] Social History Tobacco Use Types Packs/Day Years Used Date Smoking Tobacco: Never Smokeless Tobacco: Never Alcohol Use Standard Drinks/Week Comments Never 0 (1 standard drink = 0.6 oz pur e alcohol) [facility] Utilities Answer Date Recorded In the past 12 months has [employer], gas, oil, or water [employer] threatened to shut off services in [...] and heating? Not hard at all 05/28/2024 [facility] of Occupat ional Health - [...] Visit [facility] [address] [address] Robbin Escalante MD [address] [address] documented as of this encounter Visit Diagnoses Not on filedocumented in this encounter Additional Health Concerns Assessment Noted Time PHQ-2 Depression Total Score: 2 05/28/19 25 4:39 PM EDT documented as of this encounter Care Teams Warp Knitter Relationship Specialty Start Date End Date Norma Friedman APRN [address] [place] [address] [place]FA[place] APPIAH [address] PCP - General Family Medicine 05/14/24 documented as of this encounter
--- OUTSIDE RECORDS SUMMARY | 2024-10-16 09:11 | XMS_ITS | Encounter Summary ---
Author Organization [employer] ([place], [place], [place], [place]) Address [address] [place] [address] Care Team Providers Care Cementing Machine Operator Name Role Phone Unavailable Primary Care Provider Unavailabl e Encounter Details Date Type Department Care Team (Late st Contact Info) Description 07/17/2019 Transcribed Document [facility] [address] [place] [address] ProviderEleno MD [address] [place], [place] [address] Social History Tobacco Use Types Packs/Day Years [...] On: 07/17/2019 19:17 EDT by KARLENE MCKINLEY real estate executive assistant Process Patient Disposition : AMA/[place]ope/LWBS KARLENE MCKINLEY [...]
--- OUTSIDE RECORDS SUMMARY | 2024-10-16 09:11 | XMS_ITS | Clinical Summary ---
Author Organization [employer] ([place], [place], [place], [place]) Address [address] [place] [address] Care Team Providers Care Comb Winder Name Role Phone Unavailable Primary Care Provider [...]
--- OUTSIDE RECORDS SUMMARY | 2024-10-16 09:12 | XMS_ITS | Clinical Summary ---
Author Organization Healthcare Address [address] [place] [address] Care Team Providers Care Plastic Technician Name Role Phone Norma Friedman JOLENE Primary Care Provider [phone]- [phone] Lizz Trinh RN Unavailable Unavailable Allergies Active [...] dermatitis with skin contact Medications Prenat MV-Min w/At-Ssghmb-JCN ( COMPLETE PO) 019 Active potassium chloride [...] chew. 60 tablet 1 025 2024 Discontinued Pqruyijm-Pov-Jo-F A ( 1 + IRON PO) 2024 Discontinued Active Problems Problem Noted Date Diagnosed Date Hypokalemia 09/25/2024 Estimated Date of Delivery Comme nts Yes 12/01/2024 Encounters Date Type Department Care Team Description 10/16/2024 Results Follow-Up [facility] [address] [place] [address] Dilip Vasquez MD 09/26/2024 9:06 AM EDT - 09/26/2024 11:59 PM EDT Hospital Encounter Medical Office Building Cardiac Diagnostic Testing Medical Office Building Echo Lab [address], [address] [place] [address] Palpitations; Syncope and collapse Discharge Disposition: Home or Self Care 09/26/2024 8:00 AM EDT Office Visit [facility] [address] [facility] [address], [address] [place] [address] Dilip Vasquez MD Syncope and collapse (Primary Dx); Atrial fibrillation, unspecified type (CMS/HCC); Palpitations 09/26/2024 Travel 09/25/2024 2:20 PM EDT Office Visit [facility]ph[facility] Bone [facility] Mineral Metabolism [address], [address] [place] [address] Bill Patrick MD Hypokalemia (Primary Dx) 09/25/2024 Travel 09/23/2024 10:00 AM EDT Office Visit Medical [facility] Building Obstetrics and Gynecology [address] [facility] [address], [address] [place] [address] Liborio Weller MD Supervision of high risk , antepartum (Primary Dx); Cardiac arrhythmia, unspecified cardiac arrhythmia type 09/23/2024 Travel 09/17/2024 Telephone [facility] Nephrology, Bone & Mineral Metabolism [address] [facility] [address], [address] [place] [address] Sherley Gold CNA 09/17/2024 Telephone Medical Office Building Obstetrics and Gynecology [address] [facility] [address], [address] [place] [address] Josefina Shay RN 09/14/2024 Telephone [facility] Obstetrics & Gynecology [address] [place] [address] Susi Wren MD 07/22/2024 [facility] [address] [place] [address] Staci Jain MD History of proteinuria syndrome (Primary Dx); care, subsequent , second trimester 07/22/2024 [facility] [address] [place] [address] Sandy Cardenas MD from Last 3 Months [...] more drinks on one occasion? Never 09/23/2024 [place] Depression Scale Answer Date Recorded [place] Depression Scale Total 0 09/23/2024 The thought [...] Info) Description 10/17/2024 8:30 AM EDT Appointment [facility] Ul[facility]ound [address] [place] [address] 10/17/2024 9:15 AM EDT Routine Medical Office Building Obstetrics and Gynecology [address] [facility] [address], [address] [place] [address] Laury Cruz MD [address] [place] [address] 10/24/2024 8:00 AM EDT Office Visit [facility] [place] [address] [place] [address] Dilip Vasquez MD [address] [place] [address] 12/25/2024 1:00 PM EST Office Visit [facility] Nephrology, Bone & Mineral Metabolism [address] [facility] [address], [address] [place] [address] Health Maintenance Due Date Last Done Comments [facility]-/Child/Adol SDOH Screenings 1991 [facility]-Varicella Vaccines (1 of 2 - 13+ 2-dose series) 2004 [facility]- SDOH Screenings 2009 [facility]-Adult SDOH Screenings 2009 [facility]-Hepatitis B Vaccines (1 of 3 - 19+ 3-dose series) 2010 [facility]-Pap Smear 2012 [facility]-Cervical Cancer Screening 2021 [facility]-HPV/Cotest 2021 [id number] Vaccine (2 - season) 2024 05/04/2022 [facility]-Influenza Vaccine (#1) 2024 [...] Chloride, Urine 25 mmol/L 2:03 PM EDT [facility] Urine Urine specimen obtained by clean catch procedure / Unknown Non-blood Collection / Unknown 09/26/2024 10:07 AM EDT 09/26/2024 10:07 AM EDT us Bill Patrick MD LAB URINE ORDERABLES Final Resul t [facility] [address] [place] [address] * Protein, Random, Urine with Creatinine (09/26/2024 10:03 AM EDT) Protein, Urine 26 mg/dL 09/26/2024 12:08 PM EDT [facility] Creatinine, Urine 199 mg/dL 09/26/2024 12:08 PM EDT [facility] Protein/Creati nine Ratio 0.1 mg/mg Creat 09/26/2024 12:08 PM EDT [facility] Urine Urine specimen obtained by clean catch procedure / Unknown Non-blood Collection / Unknown 09/26/2024 10:03 AM EDT 09/26/2024 10:04 AM EDT us Bill Patrick MD LAB URINE ORDERABLES Final Resul t Performing Organization Address City/[facility]/ZIP Co de Phone Number [facility] [address] [place] [address] * Sodium, urine, random (09/26/2024 10:02 AM EDT) Sodium, Urine 110 mmol/L 09/26/2024 11:55 AM EDT [facility] Urine Urine specimen obtained by clean catch procedure / Unknown Non-blood Collection / Unknown 09/26/2024 10:02 AM EDT 09/26/2024 10:02 AM EDT us Bill Patrick MD LAB URINE ORDERABLES Final Resul t Performing Organization Address [facility] de Phone Number [facility] [address] [place] [address] * Potassium, urine, random (09/26/2024 10:02 AM EDT) Potassium, Urine 43 mmol/L 09/26/2024 11:55 AM EDT [facility] Urine Urine specimen obtained by clean catch procedure / Unknown Non-blood Collection / Unknown 09/26/2024 10:02 AM EDT 09/26/2024 10:02 AM EDT us Bill Patrick MD LAB URINE ORDERABLES Final Resul t Performing Organization Address City/[facility] Co de Phone Number [facility] [address] [place] [address] * Osmolality, urine (09/26/2024 10:02 AM EDT) Osmolality, Urine 404 50 - 1,200 mOsm/kg 09/26/2024 1:48 PM EDT [facility] Urine Urine specimen obtained by clean catch procedure / Unknown Non-blood Collection / Unknown 09/26/2024 10:02 AM EDT 09/26/2024 10:02 AM EDT us Bill Patrick MD LAB URINE ORDERABLES Final Resul t Performing Organization Address City/[facility]/ZIP Co de Phone Number [facility] [address] [place] [address] * SSA 52 and 60 (Ro) (YARA) Antibodies, IgG (09/26/2024 9:32 AM EDT) SSA-52 (RO52) (YARA) Antibody, IgG 2 0 - 40 AU/mL 09/28/2024 5:47 PM EDT [facility] ([employer]) SSA-60 (RO60) (YARA) Antibody, IgG 0 0 - 40 AU/mL 09/28/2024 5:47 PM EDT [facility] ([employer]) Serum 09/26/2024 9:32 AM EDT 09/26/2024 9:32 AM EDT Narrative [facility] ([employer]) - 09/28/2024 5:47 PM EDT INTERPRETIVE INFORMATION: [...] AU/mL or Greater .......... Positive Performed By: [employer] [address] [place] [id number] Professional Poker Player: Brandon Bell MD, PhD CLIA Number: [id number] Bill Patrick MD LAB REF LAB BLOOD AND FLUID ORD Final Result [facility] (TERRI) [address] [place] [address] * SSB (LA) (YARA) ANTIBODY, IGG (09/26/2024 9:32 AM EDT) SSB (LA) (YARA) Antibody, IgG 0 0 - 40 AU/mL 09/28/2024 5:47 PM EDT [facility] (TERRI) Serum Venous blood specimen / Unknown 09/26/2024 9:32 AM EDT 09/26/2024 9:32 AM EDT Narrative [facility] [employer]) - 09/28/2024 5:47 PM EDT INTERPRETIVE [...] (PSS) also have this antibody. Performed By: [employer] [address] [place] [id number] Professional Poker Player: Brandon Bell MD, PhD CLIA Number: [id number] Bill Patrick MD LAB BLOOD ORDERABLES Final Resul t [facility] Dx[facility]) [address] [place] [address] * Rheumatoid factor, plasma (09/26/2024 9:32 AM EDT) Rheumatoid Factor, Plasma <10 <14 IU/mL 09/26/2024 1:49 PM EDT [facility] Blood Venous blood specimen / Unknown Venipuncture / Unknown 09/26/2024 9:32 AM EDT 09/26/2024 9:32 AM EDT us Bill Patrick MD LAB BLOOD ORDERABLES Final Resul t [facility] [address] [place] [address] * Antinuclear Antibody (JEFFERY), HEp-2, IgG (09/26/2024 9:32 AM EDT) JEFFERY INTERPRETIVE COMMENT See Note 09/28/2024 5:13 PM EDT [facility] ([employer]) Anti Nuc Ab Screen <1:80 <1:80 09/28/2024 5:13 PM EDT [facility] ([employer]) Blood Venous blood specimen / Unknown Venipuncture / Unknown 09/26/2024 9:32 AM EDT 09/26/2024 9:32 AM EDT Narrative [facility] (TERRI) - 09/28/2024 5:13 PM EDT [...] rings, and cytoplasmic speckled patterns. Performed By: [employer] [address] [place] [id number] Professional Poker Player: Brandon Bell MD, PhD CLIA Number: [id number] us Bill Patrick MD LAB BLOOD ORDERABLES Final Resul t [facility] (TERRI) [address] [place] [address] * (ABNORMAL) Osmolality (09/26/2024 9:32 AM EDT) Osmolality, Serum 273(L) 275 - 295 mOsm/Kg 09/26/2024 2:10 PM EDT [facility] Blood Venous blood specimen / Unknown Venipuncture / Unknown 09/26/2024 9:32 AM EDT 09/26/2024 9:32 AM EDT us Bill Patrick MD LAB BLOOD ORDERABLES Final Resul t [facility] [address] [place] [address] * (ABNORMAL) Renal function panel (09/26/2024 9:32 AM EDT) Glucose, Plasma 87 74 - 99 mg/dL 09/26/2024 12:24 PM EDT [facility] BUN, Plasma 5(L) 7 - 21 mg/dL 09/26/2024 12:24 PM EDT [facility] Creatinine, Plasma 0.72 0.60 - 1.10 mg/dL 09/26/2024 12:24 PM EDT [facility] BUN/Creatinine Ratio 7 09/26/2024 12:24 PM EDT [facility] Sodium, Plasma 135(L) 136 - 145 mmol/L 09/26/2024 12:24 PM EDT [facility] Potassium, Plasma 3.1(L) 3.6 - 4.9 mmol/L 09/26/2024 12:24 PM EDT [facility] Chloride, Plasma 95(L) 97 - 107 mmol/L 09/26/2024 12:24 PM EDT [facility] CO2, Plasma 26 22 - 29 mmol/L 09/26/2024 12:24 PM EDT [facility] Anion Gap 14 6 - 16 mmol/L 09/26/2024 12:24 PM EDT [facility] Total Calcium, Plasma 9.4 8.9 - 10.2 mg/dL 09/26/2024 12:24 PM EDT [facility] Phosphorus, Plasma 3.5 2.5 - 4.5 mg/dL 09/26/2024 12:24 PM EDT [facility] Albumin, Plasma 3.6 3.5 [...] ORDERABLES Final Resul t Performing Organization Address City/State/[facility] Co de Phone Number [facility] [address] [place] [address] * Adult Patch Monitor - 7 Day (09/26/2024 9:23 AM EDT) BSA 1.78 m2 BI[employer] Anatomical Region Laterality Modality Other Narrative 10/12/2024 5:12 PM EDT DILIP VASQUEZ MD has been notified of the fainting/syncope [09/30/2024 11:56:25 AM - VICKEY HARLEY] PRELIMINARY FINDINGS: Analysis date: 09/30/24 - by GABRIELLA ALRA REPORT MET PHYSICIAN S NOTIFICATION CRITERIA: Patient [...] bpm on Day 3 :47:57 pm SVE(s): [place] was 3.46 %, [address] total SVE(s) SV Arrhythmia(s): 21 events, longest event 7 beats on Day :05:26 am, fastest event 111 bpm on Day :02:39 am PVC(s): [place] was 0.03 %, 189 total PVC(s), 1 [...] ECG Atrial Rate 84 BPM MUSE ECG NV Interval 148 ms MUSE ECG QRSD Interval 74 ms MUSE ECG QT Interval 374 ms MUSE ECG QTC Interval 441 ms MUSE ECG P [place] 60 degrees MUSE ECG R [place] 36 degrees MUSE ECG T Wave [place] 55 degrees MUSE ECG Diagnosis Normal sinus rhythm with sinus arrhythmia MUSE ECG Diagnosis Normal ECG MUSE ECG Diagnosis MUSE ECG Diagnosis Confirmed by Abad South ([id number]) on 09/26/2024 12:13:59 PM MUSE ECG 09/26/2024 8:21 AM EDT 09/26/2024 12:13 PM EDT Dilip Vasquez MD ECG ORDERABLES Final Resu lt MUSE ECG * (ABNORMAL) POCT Urinalysis Dipstick (09/23/2024 10:54 AM EDT) POCT Urine Color Yellow POCT Urine Clarity Clear POCT Glucose Urine Negative Negative mg/dL POCT Bilirubin, Urine Small(A) Negative POCT Ketones, Urine 40(A) Negative mg/dL POCT Specific [place], Urine 1.015 POCT Blood, Urine Negative Negative POCT pH, Urine >=9.0(A) 5.0 to 8.0 POCT Protein, Urine 100(A) Negative mg/dL POCT Urobilinogen, Urine 0.2 0.2, 1 E.U./dL POCT Nitrite, Urine Negative Negative POCT Leukocyte Esterase, Urine Negative Negative Test Strip Lot Number [id number] Test Strip Lot Expiration 07/2025 Urine Urine [...] ORDERABLES Fin al Result Performing Organization Address City/[facility] de Phone Number [facility] * Hepatitis C Antibody (01/22/2019 9:57 AM EST) Hepatitis C Antibody NEGATIVE Reference Range: Negative [facility] 01/22/2019 9:57 AM EST 01/22/2019 12:12 PM EST Pradip Damico APRN, CNM LAB BLOOD ORDERABLES Fin al Result Performing Organization Address City/[facility] Co de Phone Number [facility] from Last 3 Months or Most Recently Relevant to Health Maintenance Insurance [employer] [facility] MEDICAID Care Teams Plastic Technician Relationship Specialty Start Date End Date Norma Friedman APRN [address] [place] [address] PCP - General 09/23/24 Lizz Trinh, RN [facility] Registered Nurse Cardiology 09/26/24
--- OUTSIDE RECORDS SUMMARY | 2024-10-16 09:12 | XMS_ITS | Encounter Summary ---
Author Organization Healthcare Address [address] [place] [address] Care Team Providers Care Sofa Back Upholsterer Name Role Phone Norma Friedman MOTORCYCLE RACER Primary Care Provider +[phone]- [phone] Lizz Trinh RN Unavailable Unavailable Encounter Details [...] more drinks on one occasion? Never 09/23/2024 [place] Depression Scale Answer Date Recorded [place] Depression Scale Total 0 09/23/2024 The thought [...] Info) Description 10/17/2024 8:30 AM EDT Appointment [facility] Ultrasound [address] [place] [address] 10/17/2024 9:15 AM EDT Routine Medical Office Building Obstetrics and Gynecology [address], [address] [place] [address] Laury Cruz MD [address] [place] [address] 10/24/2024 8:00 AM EDT Office Visit [facility] [place] [address] [facility] [address], [address] [place] [address] Nneka Block MD [address] [place] [address] 12/25/2024 1:00 PM EST Office Visit [facility] Nephrology, Bone & Mineral Metabolism [address], [address] [place] [address] documented as of this encounter Visit Diagnoses Not on filedocumented in this encounter Additional Health Concerns Assessment Noted Time A fall risk assessment has been complete d for the patient 09/26/2024 8:15 AM EDT A Body Mass Index follow-up plan has been documented for the patient 09/27/2024 10:22 AM EDT documented as of this encounter Care Teams Sofa Back Upholsterer Relationship Specialty Start Date End Date Norma Friedman APRN [address] [place] [address] PCP - General 09/23/24 Lizz Trinh, RN [facility] Registered Nurse Cardiology 09/26/24 documented as of this encounter
--- OUTSIDE RECORDS SUMMARY | 2024-10-16 09:12 | XMS_ITS | Encounter Summary ---
Author Organization [facility] Address [address] [place] [id number] Care Team Providers Care Radiophone Operator Name Role Phone Unavailable Primary Care Provider Unavailabl e Encounter Details Date Type Department Care Team (Late st Contact Info) Description 09/17/2024 Telephone Medical Office Building Obstetrics and Gynecology [address] [facility] [facility] [address] [facility], [address] [place] [address] Josefina Shay RN [facility] [address] [place] [address] Social History Tobacco Use Types Packs/Day Years [...] recently had a full Nephrology work-up at [facility] that was negative and was not interested [...] 10/17/2024 8:30 AM EDT Appointment [facility] Ultrasound [address] [place] [address] 10/17/2024 9:15 AM EDT Routine Medical Office Building Obstetrics and Gynecology [address] [facility], [address] [place] [address] Laury Cruz MD [address] [facility] [address] [place] [address] 10/24/2024 8:00 AM EDT Office Visit [facility] [place] [address] [facility] [facility] [address], [address] [place] [address] Nneka Block MD [address] [place] [address] 12/25/2024 1:00 PM EST Office Visit [facility] Nephrology, Bone & Mineral Metabolism [address] [facility] [facility] [address], [address] [place] [address] documented as of this encounter Visit Diagnoses Not on filedocumented in this encounter
--- OUTSIDE RECORDS SUMMARY | 2024-10-16 09:12 | XMS_ITS | Encounter Summary ---
Author Organization Healthcare Address [address] [place] [place] [address] Care Team Providers Care Insulator Helper Name Role Phone Unavailable Primary Care Provider Unavailabl e Encounter Details Date Type Department Care Team (Late st Contact Info) Description 09/17/2024 Telephone [facility] Nephrology, Bone & Mineral Metabolism [address], [address] [place] [address] Sherley Gold, ROLL UP MACHINE OPERATOR GS - 7 MAIN MEDICAL-SURGICAL Social History [...] Info) Description 10/17/2024 8:30 AM EDT Appointment [facility] Ultrasound [address], [address]nd [place] [address] 10/17/2024 9:15 AM EDT [facility] Obstetrics and Gynecology [address], [address] [place] [address] Laury rCuz MD [address] [place] [address] 10/24/2024 8:00 AM EDT Office Visit [facility] [place] [address], [address] [place] [address] Nneka Block MD [address] [place] [address] 12/25/2024 1:00 PM EST Office Visit [facility] Nephrology, Bone & Mineral Metabolism [address], [address] [place] [address] documented as of this encounter Visit Diagnoses Not on filedocumented in this encounter
--- OUTSIDE RECORDS SUMMARY | 2024-10-16 09:12 | XMS_ITS | Encounter Summary ---
Author Organization Healthcare Address [address] [place] [address] Care Team Providers Care Assistant Distribution Manager Name Role Phone Norma Friedman APRN Primary Care Provider +1- [phone] Encounter Details Date Type Department Care Team [...] AM EDT Appointment [facility] Ultrasound [address] [place] [address] 10/17/2024 9:15 AM EDT Routine [facility] Obstetrics and Gynecology [address] [facility], [address] [place] [address] Laury Cruz MD [address] [facility] [address] [place] [address] 10/24/2024 8:00 AM EDT Office Visit [facility] [place] [address] [facility], [address] [place] [address] Nneka Block MD [address] [place] [address] 12/25/2024 1:00 PM EST Office Visit [facility] Nephrology, Bone & Mineral Metabolism [address] [facility], [address] [place] [address] documented as of this encounter Visit Diagnoses Not on filedocumented in this encounter Additional Health Concerns Assessment Noted Time A fall risk assessment has been complete d for the patient 09/25/2024 3:05 PM EDT A Body Mass Index follow-up plan has been documented for the patient 10/05/2024 8:54 PM EDT documented as of this encounter Care Teams Assistant Distribution Manager Relationship Specialty Start Date End Date Norma Friedman APRN [address] [place] [id number] PCP - General 09/23/24 documented as of this encounter
--- OUTSIDE RECORDS SUMMARY | 2024-10-16 09:12 | XMS_ITS | Encounter Summary ---
Author Organization Healthcare Address [address] [place] [address] Care Team Providers Care Asphalt Paving Superintendent Name Role Phone Unavailable Primary Care Provider Unavailabl e Reason for Referral * Consultation (Routine) - Closed Specialty Diagnoses / Procedures Referred By Contac t Referred To Contact Nephrology Diagnoses Hypokalemia Liborio Weller MD [address] [facility] [address] [place] [address] Phone: tel: fax: [facility] Nephrology, Bone & Mineral Metabolism [address] [facility], [address] [place] [address] Phone: tel: fax: Referral ID Status Reason Start Date Expiration Date V isits Requested Visits Authorized [id number] Closed Specialty Services Required 09/14/2024 03/16/2026 1 1 Scheduling Instructions Severe hypokalemia in the setting of Encounter Details Date Type Department Care Team (Late st Contact Info) Description 09/14/2024 Telephone [facility] Obstetrics & Gynecology [address] [place] [address] Susi Wren MD [address] [place] [address] Social History Tobacco Use Types [...] had an outpatient workup with Nephrology at [facility] [place] that was negative, [...] Info) Description 10/17/2024 8:30 AM EDT Appointment [facility] Ultrasound [address]nd [place] [address] 10/17/2024 9:15 AM EDT Routine Medical Office Building Obstetrics and Gynecology [address] [facility], [address] [place] [address] Laury Cruz MD [address] [facility] [address] [place] [address] 10/24/2024 8:00 AM EDT Office Visit [facility] [place] [address], [address] [place] [address] Nneka Block MD [address] [place] [address] 12/25/2024 1:00 PM EST Office Visit [facility] Nephrology, Bone & Mineral Metabolism [address] [facility], [address] [place] [address] Scheduled Referrals Name Type Priority Associated Diagnoses Order Schedule Ambulatory referral to Nephrology Clinic Outpatient Referral Routine Hypokalemia 1 Occurrences starting 09/14/2024 until 03/18/2026 documented as of this encounter Visit Diagnoses Diagnosis Hypokalemia- Primary Hypopotassemia Supervision of high risk , antepartum- Primary documented in this encounter
--- OUTSIDE RECORDS SUMMARY | 2024-10-16 09:12 | XMS_ITS | Encounter Summary ---
Author Organization Healthcare Address [address] [place] [address] Care Team Providers Care Field Cane Scaler Name Role Phone Norma Friedman APRN Primary Care Provider +1- [phone] Encounter Details Date Type Department Care Team [...] more drinks on one occasion? Never 09/23/2024 Orinda Depression Scale Answer Date Recorded Orinda Depression Scale Total 0 09/23/2024 The thought [...] of Assessment Author 0 09/23/2024 10:39 AM LUKAST Hailey Crandall * Question Answer Date of [...] Info) Description 10/17/2024 8:30 AM EDT Appointment [facility] Ultrasound [address] 2[address] [place] [address] 10/17/2024 9:15 AM EDT Routine Medical Office Building Obstetrics and Gynecology [address] [facility], [address] [place] [address] Laury Cruz MD [address] [place] [address] 10/24/2024 8:00 AM EDT Office Visit [facility] Ursa Burton [address] [facility], [address] [place] [address] Nneka Block MD [address] [place] [address] 12/25/2024 1:00 PM EST Office Visit [facility] Nephrology, Bone & Mineral Metabolism [address] [facility], [address] [place] [address] documented as of this encounter Visit Diagnoses Not on filedocumented in this encounter Additional Health Concerns Assessment Noted Time A Body Mass Index follow-up plan has been documented for the patient 09/23/2024 8:28 PM EDT documented as of this encounter Care Teams Field Cane Scaler Relationship Specialty Start Date End Date Norma Friedman APRN [address] [place] [address] PCP - General 09/23/24 documented as of this encounter
[2024-10-16 09:14] LABS: Anion Gap 9.4 mEq/L (5-15); Blood Urea Nitrogen 8 mg/dl (7-17); Calcium 8.8 mg/dl (8.4-10.2); Carbon Dioxide 37 mmol/L (22.0-30.0); Chloride 87 mmol/L (98-107); Creatinine Clearance Estimated 123 mL/min (50-200); Creatinine,Serum 0.70 mg/dl (0.52-1.04); Estimated Glomerular Filt Rate 96 ml/min (>60); GFR (African American) 117 ML/MIN (>60); Glucose 94 mg/dl (74-100); Magnesium 1.1 mg/dl (1.6-2.3); Sodium 131 mmol/L (136-145)
[2024-10-16 09:22] LABS: Potassium 2.4 mmoL/L (3.5-5.1)
[2024-10-16 10:08] VITALS: BP 131/86; PULSE 86; RESP 17; O2SAT 99
[2024-10-16] MEDS: MAGNESIUM SULFATE IN WATER 2 GM/50 ML PIGGYBACK IV ×3 (10:08→12:20)
[2024-10-16 11:10] VITALS: BP 105/54; PULSE 110; RESP 18; O2SAT 99
[2024-10-16 12:20] VITALS: BP 102/61; PULSE 85; RESP 18; O2SAT 99
[2024-10-16 13:20] VITALS: BP 101/58; PULSE 82; RESP 18; O2SAT 99
[2024-10-16 14:39] VITALS: BP 130/86; PULSE 100; RESP 18; O2SAT 99
== END 2024-10-16 14:39 | disposition home or self-care (01) ==
LOC: INF 08:50
PROVIDERS: PCP Nurse Practitioner Family; Visit Provider Nurse Practitioner Obstetrics & Gynecology
DX: E87.6 Hypokalemia (principal)
CPT/HCPCS: 80048; 83735; 96365; 96366; 96367; J3475; J3480

== ENCOUNTER 2024-10-16 10:00 | Outpatient (CLI) | payer OTHER, SELFPAY ==
--- OUTSIDE RECORDS SUMMARY | 2024-08-19 10:15 | XMS_ITS | Encounter Summary ---
[facility] Organization [facility] Address [address] [place] [address] Care Team Providers Care Country Manager Name Role Phone Norma Friedman APRN Primary Care Provider + [phone] Reason for Visit * Reason Comments Routine Visit Encounter Details Date Type Department Care Team (Late st Contact Info) Description 08/19/2024 10:15 AM EDT Routine [facility] OBGYN [address] [place] [address] Jacey Mathews, SET DECORATOR [address] [place] [address] GA: 25w1d Social History Tobacco Use Types Packs/Day Years Used Date Smoking Tobacco: Never Smokeless Tobacco: Never Alcohol Use Standard Drinks/Week Comments Never 0 (1 standard drink = 0.6 oz pur e alcohol) [facility] Utilities Answer Date Recorded In the past 12 months has [employer], gas, oil, or water [employer] threatened to shut off services in your [...] and heating? Not hard at all 05/28/2024 [facility] [place] [facility] - Occupational Stress Questionnaire Answer Date [...] GED or equivalent No 05/28/2024 Preferred Language Maori 05/28/2024 PHQ-2 Answer Date Recorded Patient Health [...] this encounter Progress Notes * Jacey Mathews, SET DECORATOR - 08/19/2024 10:15 AM EDT Images from [...] 3:30 PM EST Office Visit [facility] GASTROENTEROLOGY [address] [facility] [address] [place] [address] Robbin Escalante MD [address] [facility] [address] [place] [address] documented as of this encounter Visit Diagnoses Diagnosis Vaginal bleeding in - Primary 25 weeks gestation of documented in this encounter Additional Health Concerns Assessment Noted Time PHQ-2 Depression Total Score: 2 05/28/19 25 4:39 PM EDT documented as of this encounter Care Teams Country Manager Relationship Specialty Start Date End Date Norma Friedman APRN [address] [place] [address] [place] [address] PCP - General Family Medicine 05/14/24 documented as of this encounter
--- OUTSIDE RECORDS SUMMARY | 2024-08-19 13:59 | XMS_ITS | Encounter Summary ---
[facility] [address] [place] [id number] Care Team Providers Care General Contractor Name Role Phone Ivyashlyn Norma FERNÁNDEZ Primary Care Provider + [phone] Reason for Visit * Reason Comments Vaginal Bleeding * Auth/Cert (Routine) Specialty Diagnoses / Procedures Referred By Contleyla t Referred To Contact Referral ID Status Reason Start Date Expiration Date Visits Re quested Visits Authorized [id number] 1 1 Encounter Details Date Type Department Care Team (Late st Contact Info) Description 08/19/2024 1:59 PM EDT - 08/20/2024 4:28 PM EDT Hospital Encounter [facility] [address] [place] [id number] Rob Wharton MD [address] [facility] [address] [place] [address] Blu Alvarado MD [address] [facility] [address] [place] [address] Dysphagia, unspecified type (Primary Dx) Discharge Disposition: Home or Self Care Social History Tobacco Use Types Packs/Day Years Used Date Smoking Tobacco: Never Smokeless Tobacco: Never Alcohol Use Standard Drinks/Week Comments Never 0 (1 standard drink = 0.6 oz pur e alcohol) [facility] Utilities Answer Date Recorded In the past 12 months has [employer], gas, oil, or water bubl threatened to shut off services in your [...] and heating? Not hard at all 05/28/2024 [facility] [place] of Occupat ional Health - Occupational Stress [...] 1:23 PM EDT Polly Lacey RN * [place] Suicide Severity Rating Scale (Screener/Recent Self-Report) Question [...] Labs beginning of week and f/u with al Seng Test Results Pending at Discharge Pending Labs Order Current Status Tissue Pathology Exam In process Rob Wharton MD 08/20/24 15:36 EDT Time: Discharge <30 min documented in this encounter Discharge Instructions * Attachments The following attachments cannot be sent through Care Everywhere. * Second Trimester of (Hungarian) * Upper Endoscopy Adult Care After (Hungarian) documented in this encounter Medications at Time [...] 08/19/2024 RH Positive 08/19/2024 ABSCRN Negative 08/19/2024 [id number] non-reactive 04/12/2024 HEPCVIRUSABY negative 04/12/2024 URINECX Final [...] IUPC: Resting Tone: Resting Tone by IUPC: [place] Units: Cervix: Exam by: Method: sterile vaginal [...] from the original note were not included. [facility] Obstetric History and Physical Referring [...] her third trimesters prior pregnancies(etiology unknown). 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 She states has never had [...] IUPC: Resting Tone: Resting Tone by IUPC: [place] Units: Laboratory Results: Lab Results (last 24 [...] AM EDTAssociated Order(s): IP CONSULT TO GASTROENTEROLOGY [facility] Gastroenterology Consult Referring [...] expresses concern regarding recent CT scan at [facility] revealing a hiatal hernia. CT scan done prior to most recent due to ovarian cyst and incidentally revealed hiatal hernia. She reports chronic gastrointestinal symptoms. Review of medical record revealed prior GI referral due to blood per rectum. She reports colonoscopy in 2020 at outside facility that revealed diverticulosis and benign colon polyp. She is currently established with provider at [facility] for gastroenterology care she reports [...] , await recommendations following EGD - consider SEMICONDUCTOR BONDER evaluation if no etiology for difficulty swallowing [...] from the original note were not included. [facility] Obstetric History and Physical Referring [...] her third trimesters prior pregnancies(etiology unknown). 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 She states has never had [...] IUPC: Resting Tone: Resting Tone by IUPC: [place] Units: Laboratory Results: Lab Results (last 24 [...] Description 01/20/2025 3:30 PM EST Office Visit [facility] [address] [facility] [address] [address] [phone] Robbin Escalante MD [address] [facility] [address] [address] documented as of this encounter Procedures Procedure [...] NONSTRESS TEST Routine 08/19/2024 4:17 PM EDT [facility] Routine 08/19/2024 3:25 PM [...] EDT) Case Report Surgical Pathology Report Case: [id number] Authorizing Provider: Blu Alvarado MD Collected: 08/20/2024 01:55 PM Ordering Location: [facility] Received: 08/20/2024 02:14 PM ENDO SUITES Pathologist: Khalida Rhoades DO Specimen: Gastric, Antrum, antrum bx for path 08/22/2024 9:18 AM EDT [facility] Clinical Information Dysphagia, unspecified type 08/22/2024 9:18 AM EDT [facility] Final Diagnosis Stomach, antrum, biopsy: 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 pylori is negative (no organisms are identified) Negative for intestinal metaplasia, dysplasia, or malignancy 08/22/2024 9:18 AM EDT [facility] at 0918 EDT Gross Description 1. Gastric, Antrum. Received in formalin labeled antrum biopsy is a 0.4 x 0.2 x 0.2 cm pink-see soft tissue fragment submitted entirely in a single cassette. HDM 08/22/2024 9:18 AM EDT [facility] Microscopic Description The slides are reviewed and demonstrate histopathologic features supporting the above rendered diagnosis. 08/22/2024 9:18 AM EDT [facility] Tissue Pyloric antrum structure / Unknown 08/20/2024 1:55 PM EDT 08/20/2024 2:14 PM EDT us Blu Alvarado MD PATHOLOGY/CYTOLOGY ORDERABLES Final Result [facility]
[address] [place] [address], * Upper GI Endoscopy (08/20/2024 1:09 PM EDT) us Blu Alvarado MD INTERFACE NEEDS Final Result * (ABNORMAL) Basic Metabolic Panel (08/20/2024 5:25 AM EDT) Glucose 84 65 - 99 mg/dL 08/20/2024 6:13 AM EDT [facility] BUN 2.3(L) 6.0 - 20.0 mg/dL 08/20/2024 6:13 AM EDT [facility] Creatinine 0.51(L) 0.57 - 1.00 mg/dL 08/20/2024 6:13 AM EDT [facility] Sodium 139 136 - 145 mmol/L 08/20/2024 6:13 AM EDT [facility] Potassium 3.5 3.5 - 5.2 mmol/L 08/20/2024 6:13 AM EDT [facility] Chloride 109(H) 98 - 107 mmol/L 08/20/2024 6:13 AM EDT [facility] CO2 23.5 22.0 - 29.0 mmol/L 08/20/2024 6:13 AM EDT [facility] Calcium 7.8(L) 8.6 - 10.5 mg/dL 08/20/2024 6:13 AM EDT [facility] BUN/Creatinine Ratio 4.5(L) 7.0 - 25.0 08/20/2024 6:13 AM EDT [facility] Anion Gap 6.5 5.0 - 15.0 mmol/L 08/20/2024 6:13 AM T [facility] eGFR 126.6 >60.0 mL/min/1.7 3 08/20/2024 6:13 AM T [facility] Blood Venipuncture / Unknown 08/20/2024 5:25 AM EDT 08/20/2024 5:46 AM EDT [facility] LAB[facility]ATORY - 08/20/2024 6:13 AM [...] ORDERABLES Final Resu lt Performing Organization Address City/[facility]/ZIP Co de Phone Number [facility]
[address] [place] [address], * (ABNORMAL) Potassium (08/19/2024 8:53 PM EDT) Potassium 2.7(L) 3.5 - 5.2 mmol/L 08/19/2024 9:20 PM EDT [facility] Blood Venipuncture / Unknown 08/19/2024 8:53 PM EDT 08/19/2024 9:04 PM EDT Kt Fan DO LAB BLOOD ORDERABLES Final Result Performing Organization Address [facility] Co de Phone Number [facility]
[address] [place] [address], * ABO RH Specimen Verification (08/19/2024 4:34 PM EDT) ABO Type O 08/19/2024 7:39 PM EDT [facility] BB [facility]OR[facility] RH type Positive 08/19/2024 7:39 PM EDT [facility] Blood Venipuncture / Unknown 08/19/2024 4:34 PM EDT 08/19/2024 4:53 PM EDT Rob Wharton MD BLOOD BANK TEST ORDER FRANCO Final Result Performing Organization Address City/[facility]/ZIP Co de Phone Number [facility] BB LABORATORY
[address] [place] [address], * Formerly [facility], later [facility] (08/19/2024 3:25 PM EDT) Anatomical Region Laterality Modality Ultrasound 08/19/2024 3:09 PM EDT Narrative 08/19/2024 4:54 PM EDT PAT NAME: CAROLE GIRARD MED REC#: [id number] DA: 1990 PAT GEND: F PAT TYPE: E EXAM TRAVIS: [id number] REF PHYS ROB WHARTON Comparison Studies The [...] View: Limited by patient body habitus ========= Loev . Number of fetuses: 1 Dating ====== [...] EFW (oz) 9 oz EFW by: Hadlock (YUF-[id number]-FL) Extended Cav. septi pel. tr 4.7 mm Ceramic Mold Designer 3.8 mm CM 7.5 mm 84% Nicolaides [...] Heart / Thorax 3-vessel view: Appears normal 4-roibsg-nrqurfj view: Appears normal Stomach: Appears normal Kidneys: [...] in 4wks for growth. Coding ======= Description: [id number] Follow Up Can Dryer: RT Annetta Hartmann , [facility] Physician: Jo Chappell MD Electronically signed by: Jo Chappell MD at: 16:54 Procedure Note Jo Chappell MD - 08/19/2024 PAT NAME: CAROLE GIRARD MED REC#: [id number] DA: 1990 PAT GEND: F PAT TYPE: E EXAM TRAVIS: [id number] REF PHYS ROB WHARTON Comparison Studies The findings of this study are compared to the prior ultrasound studydated 07/22/24 Patient Status Inpatient Indication ======== History of c/s x1. History of . Vaginal bleeding. Maternal Assessment [id number] cm Height (ft)5 ft Height (in)4 in Djnodn32 kg Weight (lb)158 lb BMI27.31 kg/m Method ======= Transabdominal ultrasound examination. View: Limited by patient bodyhabitus ========= Love . Number of fetuses: 1 Dating ====== Method of dating:based on stated DUSTY GA by prior [id number] w + 1 d DUSTY by prior assessment:12/01/2024 Ultrasound examination on:08/19/2024 GA by U/S based upon:AC, BPD, Femur, HC GA by U/S24 w + 2 d DUSTY by U/S:12/07/2024 Previous dating:based on stated DUSTY, selected on 07/22/2024 Agreed DUSTY of previous datin12/01/2024 Assigned:based on stated DUSTY, selected on 08/19/2024 Assigned GA25 w + 1 d Assigned DUSTY:12/01/2024 [id number] d Biometry Standard BPD57.6 mm 23w 4d 5% Hadlock OFD81.6 mm 26w 4d 88% Jamal HC225.7 mm 24w 4d 13% Hadlock Cerebellum tr28.9 mm 25w 2d 62% Hill AC194.9 mm 24w 1d 15% Hadlock Femur44.9 mm 24w 6d 27% Hadlock Zciztir86.3 mm 25w 3d 50% Jamal HC / AC1.16 QHK835 g 24w 2d 16% Hadlock EFW (lb)1 lb EFW (oz)9 oz EFW by:Hadlock (LVD-SI-EB-FL) Extended Cav. septi pel. tr4.7 mm Vp3.8 mm CM7.5 mm 84% Nicolaides Head / Face / Neck Cephalic index0.71 <1% Nicolaides Extremities / Bony Struc FL / BPD0.78 FL / HC0.20 FL / AC0.23 Other Structures EDS136 bpm General Evaluation Cardiac activity present. FHR [...] normal Heart / Thorax 3-vessel view:Appears normal 4-upfpbp-xzbrzvp view:Appears normal Stomach:Appears normal Kidneys:Appears normal Bladder:Appears [...] 24% Colt Umbilical A HR128 bpm Impression Caroel presented to [facility] today with complaints of [...] office in 4wks for growth. Coding ======= Description:[id number] Follow Up Can Dryer: RT Annetta Hartmann , RDMS Physician: Jo Chappell MD Electronically signed by: Jo Chappell MD at: 16:54 us Kt Fan DO G US ORDERABLES Final Res ult * Protein / Creatinine Ratio, Urine - Urine, Clean Catch (08/19/2024 3:02 PM EDT) Protein/Creati nine Ratio, Urine 126.1 0.0 - 200.0 mg/G Crea 08/20/2024 12:47 AM EDT [facility] Creatinine, Urine 148.3 mg/dL 08/20/2024 12:47 AM EDT [facility] Total Protein, Urine 18.7 mg/dL 08/20/2024 12:47 AM EDT [facility] Urine Urine specimen obtained by clean catch procedure / Unknown Collection / Unknown 08/19/2024 3:02 PM EDT 08/19/2024 4:26 PM EDT Kt Fan URINE ORDERABLES Final Resu lt [facility]
[address] [place] [address], [place] [phone] * (ABNORMAL) Magnesium (08/19/2024 3:02 PM EDT) Magnesium 1.5(L) 1.6 - 2.6 mg/dL 08/19/2024 5:12 PM EDT [facility] Blood Line / Unknown 08/19/2024 3: 02 PM EDT 08/19/2024 3:10 PM EDT Kt Fan DO LAB BLOOD ORDERABLES Final Result [facility]
[address] [place] [address], [place] [phone] * Urinalysis, Microscopic Only - Urine, Clean Catch (08/19/2024 3:02 PM EDT) RBC, UA 0-2 None Seen, 0-2 /HPF 08/19/2024 3:33 PM EDT [facility] WBC, UA 0-2 None Seen, 0-2 /HPF 08/19/2024 3:33 PM EDT [facility] Bacteria, UA None Seen None Seen /HPF 08/19/2024 3:33 PM EDT [facility] Squamous Epithelial Cells, UA 0-2 None Seen, 0-2 /HPF 08/19/2024 3:33 PM EDT [facility] Hyaline Casts, UA None Seen None Seen /LPF 08/19/2024 3:33 PM EDT [facility] Methodology Automated Microscopy 08/19/2024 3:33 PM EDT [facility] Urine Urine specimen obtained by clean catch procedure / Unknown Collection / Unknown 08/19/2024 3:02 PM EDT 08/19/2024 3:13 PM EDT us Kt Fan DO URINE ORDERABLES Final Resu lt [facility]
[address] [place] [address], * (ABNORMAL) CBC Auto Differential (08/19/2024 3:02 PM EDT) WBC 9.19 3.40 - 10.80 10*3/mm3 08/19/2024 3:23 PM EDT [facility] RBC 3.58(L) 3.77 - 5.28 10*6/mm3 08/19/2024 3:23 PM EDT [facility] Hemoglobin 10.5(L) 12.0 - 15.9 g/dL 08/19/2024 3:23 PM EDT [facility] Hematocrit 31.4(L) 34.0 - 46.6 % 08/19/2024 3:23 PM EDT [facility] MCV 87.7 79.0 - 97.0 fL 08/19/2024 3:23 PM EDT [facility] MCH 29.3 26.6 - 33.0 pg 08/19/2024 3:23 PM EDT [facility] MCHC 33.4 31.5 - 35.7 g/dL 08/19/2024 3:23 PM EDT [facility] RDW 13.4 12.3 - 15.4 % 08/19/2024 3:23 PM EDT [facility] RDW-SD 42.4 37.0 - 54.0 fl 08/19/2024 3:23 PM EDT [facility] MPV 12.0 6.0 - 12.0 fL 08/19/2024 3:23 PM EDT [facility] Platelets 241 140 - 450 10*3/mm3 08/19/2024 3:23 PM EDT [facility] Neutrophil % 66.8 42.7 - 76.0 % 08/19/2024 3:23 PM EDT [facility] Lymphocyte % 24.4 19.6 - 45.3 % 08/19[facility]2024 [facility] Monocyte % 7.6 5.0 - 12.0 % 08/19/2024 3:[facility] Eosinophil % 0.7 0.3 - 6.2 % 08/19/2024 3:[facility] Basophil % 0.2 0.0 - 1.5 % 08/19/2024 3:[facility] Immature Grans % 0.3 0.0 - 0.5 % 08/19/2024 3:23 [facility] Neutrophils, Absolute 6.14 1.70 - 7.00 10*3/mm3 08/19/2024 3:23 [facility] Lymphocytes, Absolute 2.24 0.70 - 3.10 10*3/mm3 08/19/2024 3:23 PM EDT [facility] Monocytes, Absolute 0.70 0.10 - 0.90 10*3/mm3 08/19/2024 3:23 PM EDT [facility] Eosinophils, Absolute 0.06 0.00 - 0.40 10*3/mm3 08/19/2024 3:[facility] Basophils, Absolute 0.02 0.00 - 0.20 10*3/mm3 08/19/2024 3:23 PM EDT [facility] Immature Grans, Absolute 0.03 0.00 - 0.05 10*3/mm3 08/19/2024 3:23 PM EDT [facility] nRBC 0.0 0.0 - 0.2 /100 WBC 08/19/2024 3:23 PM EDT [facility] Blood Line / Unknown 08/19/2024 3: 02 PM EDT 08/19/2024 3:10 PM EDT Kt Fan DO LAB BLOOD ORDERABLES Final Result [facility]
[address] [place] [address], * (ABNORMAL) Urinalysis With Microscopic If Indicated (No Culture) - Urine, Clean Catch (08/19/2024 3:02 PM EDT) Color, UA Yellow Yellow, Straw 08/19/2024 3:33 PM EDT [facility] Appearance, UA Clear Clear 08/19/2024 3:33 PM EDT [facility] pH, UA >=9.0(H) 5.0 - 8.0 08/19/2024 3:33 PM EDT [facility] Specific [place], UA 1.018 1.005 - 1.030 08/19/2024 3:33 PM EDT [facility] Glucose, UA Negative Negative 08/19/2024 3:33 PM EDT [facility] Ketones, UA 15 mg/dL (1+)(A) Negative 08/19/2024 3:33 PM EDT [facility] Bilirubin, UA Negative Negative 08/19/2024 3:33 PM EDT [facility] Blood, UA Negative Negative 08/19/2024 3:33 PM EDT [facility] Protein, UA 30 mg/dL (1+)(A) Negative 08/19/2024 3:33 PM EDT [facility] Leuk Esterase, UA Negative Negative 08/19/2024 3:33 PM EDT [facility] Nitrite, UA Negative Negative 08/19/2024 3:33 PM EDT [facility] Urobilinogen, UA 1.0 E.U./dL 0.2 - 1.0 E.U./dL 08/19/2024 3:33 PM EDT [facility] Urine Urine specimen obtained by clean catch procedure / Unknown Collection / Unknown 08/19/2024 3:02 PM EDT 08/19/2024 3:13 PM EDT us Kt Fan DO URINE ORDERABLES Final Resu lt Performing Organization Address City/[facility]/ZIP Co de Phone Number [facility]
[address] [place] [address], [place] [phone] * Amylase (08/19/2024 3:02 PM EDT) Amylase 73 28 - 100 U/L 08/19/2024 3:36 PM EDT [facility] Blood Line / Unknown 08/19/2024 3: 02 PM EDT 08/19/2024 3:10 PM EDT us Kt Fan DO LAB BLOOD ORDERABLES Final Result Performing Organization Address [facility] Co de Phone Number [facility]
[address] [place] [address], [place] [phone] * Lipase (08/19/2024 3:02 PM EDT) Lipase 13 13 - 60 U/L 08/19/2024 3:36 PM EDT [facility] Blood Line / Unknown 08/19/2024 3: 02 PM EDT 08/19/2024 3:10 PM EDT us Kt Fan DO LAB BLOOD ORDERABLES Final Result Performing Organization Address City/[facility]/ZIP Co de Phone Number [facility]
[address] [place] [address], * (ABNORMAL) Comprehensive Metabolic Panel (08/19/2024 3:02 PM EDT) [facility] Glucose 75 65 - 99 mg/dL 08/19/2024 3:38 PM EDT [facility] BUN 3.6(L) 6.0 - 20.0 mg/dL 08/19/2024 3:38 PM EDT [facility] Creatinine 0.51(L) 0.57 - 1.00 mg/dL 08/19/2024 3:38 PM EDT [facility] Sodium 137 136 - 145 mmol/L 08/19/2024 3:38 PM EDT [facility] Potassium 2.6(LL) 3.5 - 5.2 mmol/L 08/19/2024 3:38 PM EDT [facility] Comment:Specimen hemolyzed. Result may be falsely elevated. Chloride 99 98 - 107 mmol/L 08/19/2024 3:38 PM EDT [facility] CO2 24.2 22.0 - 29.0 mmol/L 08/19/2024 3:38 PM EDT [facility] Calcium 8.8 8.6 - 10.5 mg/dL 08/19/2024 3:38 PM EDT [facility] Total Protein 6.6 6.0 - 8.5 g/dL 08/19/2024 3:38 PM EDT [facility] Albumin 3.4(L) 3.5 - 5.2 g/dL 08/19/2024 3:38 PM EDT [facility] ALT (SGPT) 10 1 - 33 U/L 08/19/2024 3:38 PM EDT [facility] AST (SGOT) 22 1 - 32 U/L 08/19/2024 3:38 PM EDT [facility] Alkaline Phosphatase 64 39 - 117 U/L 08/19/2024 3:38 PM EDT [facility] Total Bilirubin 0.5 0.0 - 1.2 mg/dL 08/19/2024 3:38 PM EDT [facility] Globulin 3.2 gm/dL 08/19/2024 3:38 PM EDT [facility] Comment:Calculated Result A/G Ratio 1.1 g/dL 08/19/2024 3:38 PM EDT [facility] BUN/Creatinine Ratio 7.1 7.0 - 25.0 08/19/2024 3:38 PM EDT [facility] Anion Gap 13.8 5.0 - 15.0 mmol/L 08/19/2024 3:38 PM EDT [facility] eGFR 126.6 >60.0 mL/min/1.7 3 08/19/2024 3:38 PM EDT [facility] Blood Line / Unknown 08/19/2024 3: 02 PM EDT 08/19/2024 3:10 PM EDT Narrative [facility] - 08/19/2024 3:38 PM EDT GFR [...] Fan DO LAB BLOOD ORDERABLES Final Result [facility]
[address] [place] [address], * Type & Screen (08/19/2024 3:02 PM EDT) ABO Type O 08/19/2024 3:51 PM EDT [facility] RH type Positive 08/19/2024 3:51 PM EDT [facility] Antibody Screen Negative 08/19/2024 3:51 PM EDT [facility] T&S Expiration Date 08/22/2024 11:59:59 PM 08/19/2024 3:51 PM EDT [facility] Blood Line / Unknown 08/19/2024 3: 02 PM EDT 08/19/2024 3:15 PM EDT Kt Fan DO BLOOD BANK TEST ORDERABLES Edited Result - Final [facility]
[address] [place] [address], documented in this encounter Visit Diagnoses Diagnosis [...] documented as of this encounter Care Teams General Contractor Relationship Specialty Start Date End Date Norma Friedman APRN [address] [place] G3 RAFAELA APPIAH [id number] PCP - General Family Medicine 05/14/24 documented as of this encounter
--- OUTSIDE RECORDS SUMMARY | 2024-08-20 13:33 | XMS_ITS | Encounter Summary ---
[facility] Address [address] [place] [address] Care Team Providers Care Review Analyst Name Role Phone Norma Friedman APRN Primary Care Provider + [phone] Reason for Visit * Reason Comments Vaginal Bleeding * Auth/Cert (Routine) Specialty Diagnoses / Procedures Referred By Tarik t Referred To Contact Referral ID Status Reason Start Date Expiration Date Visits Re quested Visits Authorized [id number] 1 1 Encounter Details Date Type Department Care Team (Late st Contact Info) Description 08/20/2024 1:33 PM EDT - 08/20/2024 2:05 PM EDT Surgery [facility] [address] [place] [address] Blu Alvarado MD [address] [facility] [address] [place] [address] ESOPHAGOGASTRODUODENOSCOPY [26524 (CPT )] Social History Tobacco Use Types Packs/Day Years Used Date Smoking Tobacco: Never Smokeless Tobacco: Never Alcohol Use Standard Drinks/Week Comments Never 0 (1 standard drink = 0.6 oz pur e alcohol) [facility] Utilities Answer Date Recorded In the [...] and heating? Not hard at all 05/28/2024 [facility] - Occupational Stress Questionnaire Answer Date [...] GED or equivalent No 05/28/2024 Preferred Language Burkinan 05/28/2024 PHQ-2 Answer Date Recorded Patient Health [...] Polly Cabrera, BRIT 2. Non-Specific Active Suici miek Thoughts (Past 1 Month) No 08/20/2024 1:23 PM EDT Diego Cabrera RN * Calculated C-SSRS Risk Score (Lifetime/Recent) Answer Date of Assessment Author No Risk Indicated 08/20/2024 1:23 PM EDT Polly Lacey RN * [place] Suicide Severity Rating Scale (Screener/Recent Self-Report) Question [...] [facility] Results Pending at Discharge Pending Labs Order Current Status Tissue Pathology Exam In process Rob Wharton MD 08/20/24 15:36 EDT Time: Discharge <30 min documented in this encounter Discharge Instructions * Attachments The following attachments cannot be sent through Care Everywhere. * Second Trimester of (Burkinan) * Upper Endoscopy Adult Care After (Burkinan) documented in this encounter Medications at Time [...] 08/19/2024 RH Positive 08/19/2024 ABSCRN Negative 08/19/2024 [id number] non-reactive 04/12/2024 HEPCVIRUSABY negative 04/12/2024 URINECX Final [...] IUPC: Resting Tone: Resting Tone by IUPC: [place] Units: Cervix: Exam by: Method: sterile vaginal [...] from the original note were not included. [facility] Obstetric History and Physical Referring Provider: [...] her third trimesters prior pregnancies(etiology unknown). 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 She states has never [...] IUPC: Resting Tone: Resting Tone by IUPC: [place] Units: Laboratory Results: Lab Results (last 24 [...] AM EDTAssociated Order(s): IP CONSULT TO GASTROENTEROLOGY [facility] Gastroenterology Consult Referring Provider: [...] expresses concern regarding recent CT scan at [facility] revealing a hiatal hernia. CT scan done prior to most recent due to ovarian cyst and incidentally revealed hiatal hernia. She reports chronic gastrointestinal symptoms. Review of medical record revealed prior GI referral due to blood per rectum. She reports colonoscopy in 2020 at outside facility that revealed diverticulosis and benign colon polyp. She is currently established with provider at [facility] for gastroenterology care she reports [...] , await recommendations following EGD - consider CORRECTIONAL OFFICER CAPTAIN evaluation if no etiology for difficulty swallowing [...] from the original note were not included. [facility] Obstetric History and Physical Referring Provider: [...] her third trimesters prior pregnancies(etiology unknown). 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 She states has never [...] IUPC: Resting Tone: Resting Tone by IUPC: [place] Units: Laboratory Results: Lab Results (last 24 [...] Visit [facility] GASTROENTEROLOGY [address] [id number] Robbin Escalante MD [address] [address] documented as of this encounter Procedures Procedure Name Priority Date/Time Associated Diagnosis Comments TISSUE PATHOLOGY EXAM Routine 08/20/2024 1:55 PM EDT Dysphagia, unspecified type HI ESOPHAGOGASTRODUODENOSCOP Y TRANSORAL DIAGNOSTIC 08/20/2024 1:44 PM EDT Dysphagia, unspecified type UPPER GI ENDOSCOPY 08/20/2024 1:09 PM EDT BASIC METABOLIC PANEL STAT 08/20/2024 5:25 AM EDT POTASSIUM STAT 08/19/2024 8:53 PM EDT ABORH 2ND SPECIMEN VERIFICATION STAT 08/19/2024 4:34 PM EDT NONSTRESS TEST Routine 08/19/2024 4:17 PM EDT [facility] Routine 08/19/2024 3:25 PM [...] EDT) Case Report Surgical Pathology Report Case: [id number] Authorizing Provider: Blu Alvarado MD Collected: 08/20/2024 01:55 PM Ordering Location: [facility] Received: 08/20/2024 02:14 PM ENDO SUITES Pathologist: Khalida Rhaodes DO Specimen: Gastric, Antrum, antrum bx for path 08/22/2024 9:18 AM EDT [facility] Clinical Information Dysphagia, unspecified type 08/22/2024 9:18 AM EDT [facility] Final Diagnosis Stomach, antrum, biopsy: 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 pylori is negative (no organisms are identified) Negative for intestinal metaplasia, dysplasia, or malignancy 08/22/2024 9:18 AM EDT [facility] at 0918 EDT Gross Description 1. Gastric, Antrum. Received in formalin labeled antrum biopsy is a 0.4 x 0.2 x 0.2 cm pink-see soft tissue fragment submitted entirely in a single cassette. HDM 08/22/2024 9:18 AM EDT [facility] Microscopic Description The slides are reviewed and demonstrate histopathologic features supporting the above rendered diagnosis. 08/22/2024 9:18 AM EDT [facility] Tissue Pyloric antrum structure / Unknown 08/20/2024 1:55 PM EDT 08/20/2024 2:14 PM EDT us Blu Alvarado MD PATHOLOGY/CYTOLOGY ORDERABLES Final Result [facility]
[address] [place] [address], * Upper GI Endoscopy (08/20/2024 1:09 PM EDT) us Blu Alvarado MD INTERFACE NEEDS Final Result * (ABNORMAL) Basic Metabolic Panel (08/20/2024 5:25 AM EDT) Glucose 84 65 - 99 mg/dL 08/20/2024 6:13 AM EDT [facility] BUN 2.3(L) 6.0 - 20.0 mg/dL 08/20/2024 6:13 AM T [facility] Creatinine 0.51(L) 0.57 - 1.00 mg/dL 08/20/2024 6:13 AM [facility] Sodium 139 136 - 145 mmol/L 08/20/2024 6:13 AM EDT [facility] Potassium 3.5 3.5 - 5.2 mmol/L 08/20/2024 6:13 AM EDT [facility] Chloride 109(H) 98 - 107 mmol/L 08/20/2024 6:13 AM [facility] CO2 23.5 22.0 - 29.0 mmol/L 08/20/2024 6:13 AM [facility] Calcium 7.8(L) 8.6 - 10.5 mg/dL 08/20/2024 6:13 AM [facility] BUN/Creatinine Ratio 4.5(L) 7.0 - 25.0 08/20/2024 6:13 AM [facility] Anion Gap 6.5 5.0 - 15.0 mmol/L 08/20/2024 6:13 AM [facility] eGFR 126.6 >60.0 mL/min/1.7 3 08/20/2024 6:13 AM [facility] Blood Venipuncture / Unknown 08/20/2024 5:25 AM EDT 08/20/2024 5:46 AM T [facility] - 08/20/2024 6:13 AM EDT [...] ORDERABLES Final Resu lt Performing Organization Address City/[facility]/ZIP Co de Phone Number [facility]
[address] [place] [address], * (ABNORMAL) Potassium (08/19/2024 8:53 PM EDT) Potassium 2.7(L) 3.5 - 5.2 mmol/L 08/19/2024 9:20 PM EDT [facility] Blood Venipuncture / Unknown 08/19/2024 8:53 PM EDT 08/19/2024 9:04 PM EDT Kt Fan DO LAB BLOOD ORDERABLES Final Result Performing Organization Address [facility] Co de Phone Number [facility]
[address] [place] [address], * ABO RH Specimen Verification (08/19/2024 4:34 PM EDT) ABO Type O 08/19/2024 7:39 PM EDT [facility] RH type Positive 08/19/2024 7:39 PM EDT [facility] Blood Venipuncture / Unknown 08/19/2024 4:34 PM EDT 08/19/2024 4:53 PM EDT Rob Wharton MD BLOOD BANK TEST ORDER FRANCO Final Result Performing Organization Address City/[facility]/ZIP Co de Phone Number [facility]
[address] [place] [address], * [facility] (08/19/2024 3:25 PM EDT) Anatomical Region Laterality Modality Ultrasound 08/19/2024 3:09 PM EDT Narrative 08/19/2024 4:54 PM EDT PAT NAME: CAROLE GIRARD MED REC#: [id number] DA: 1990 PAT GEND: F PAT TYPE: E EXAM TRAVIS: [id number] REF PHYS ROB WHARTON Comparison Studies The [...] EFW (oz) 9 oz EFW by: Hadlock ([id number]) Extended Cav. septi pel. tr 4.7 mm Clinical Dietitian 3.8 mm CM 7.5 mm 84% Nicolaides [...] Heart / Thorax 3-vessel view: Appears normal 4-pcmuun-hexrola view: Appears normal Stomach: Appears normal Kidneys: [...] in 4wks for growth. Coding ======= Description: 63715-72 Follow Up Implementation Architect: Alison Verduzco RT R , MS Physician: Jo Chappell MD Electronically signed by: Jo Chappell MD at: 16:54 Procedure Note Jo Chappell MD - 08/19/2024 PAT NAME: CAROLE GIRARD MED REC#: [id number] DA: [id number] PAT GEND: F PAT TYPE: E EXAM TRAVIS: [id number] REF PHYS ROB WHARTON Comparison Studies The findings of this study are compared to the prior ultrasound studydated 07/22/24 Patient Status Inpatient Indication ======== History of c/s x1. History of . Vaginal bleeding. Maternal Assessment Ivherj371 cm Height (ft)5 ft Height (in)4 in Cusbsw72 kg Weight (lb)158 lb BMI27.31 kg/m Method ======= Transabdominal ultrasound examination. View: Limited by patient bodyhabitus ========= Love . Number of fetuses: 1 Dating ====== Method of dating:based on stated DUSTY GA by prior [id number] w + 1 d DUSTY by prior assessment:12/01/2024 Ultrasound examination on:08/19/2024 GA by U/S based upon:AC, BPD, Femur, HC GA by U/S24 w + 2 d DUSTY by U/S:12/07/2024 Previous dating:based on stated DUSTY, selected on 07/22/2024 Agreed DUSTY of previous datin12/01/2024 Assigned:based on stated DUSTY, selected on 08/19/2024 Assigned GA25 w + 1 d Assigned DUSTY:12/01/2024 [id number] d Biometry Standard BPD57.6 mm 23w 4d 5% Hadlock OFD81.6 mm 26w 4d 88% Jamal HC225.7 mm 24w 4d 13% Hadlock Cerebellum tr28.9 mm 25w 2d 62% Hill AC194.9 mm 24w 1d 15% Hadlock Femur44.9 mm 24w 6d 27% Hadlock Ybhsrgk70.3 mm 25w 3d 50% Jamal HC / AC1.16 KJX910 g 24w 2d 16% Hadlock EFW (lb)1 lb EFW (oz)9 oz EFW by:Hadlock ([id number]) Extended Cav. septi pel. tr4.7 mm Vp3.8 mm CM7.5 mm 84% Nicolaides Head / Face / Neck Cephalic index0.71 <1% Nicolaides Extremities / Bony Struc FL / BPD0.78 FL / HC0.20 FL / AC0.23 Other Structures WLD317 bpm General Evaluation Cardiac activity present. FHR [...] normal Heart / Thorax 3-vessel view:Appears normal 8-ffbiyo-xfgdnmb view:Appears normal Stomach:Appears normal Kidneys:Appears normal Bladder:Appears normal Gender:female Wants to know gender:yes Maternal Structures Uterus / Cervix Cervix:Visualized Approach:Transabdominal Cervical mnuneu76.9 mm Doppler Arterial Umbilical A PI1.01 32% [...] office in 4wks for growth. Coding ======= Description:02436-57 Follow Up Implementation Architect: RT Annetta Hartmann , [facility] Physician: Jo Chappell MD Electronically signed by: Jo Chappell MD at: 16:54 us Kt Fan DO [facility] US ORDERABLES Final Res ult * Protein / Creatinine Ratio, Urine - Urine, Clean Catch (08/19/2024 3:02 PM EDT) Protein/Creati nine Ratio, Urine 126.1 0.0 - 200.0 mg/G Crea 08/20/2024 12:47 AM EDT [facility] Creatinine, Urine 148.3 mg/dL 08/20/2024 12:47 AM EDT [facility] Total Protein, Urine 18.7 mg/dL 08/20/2024 12:47 AM EDT [facility] Urine Urine specimen obtained by clean catch procedure / Unknown Collection / Unknown 08/19/2024 3:02 PM EDT 08/19/2024 4:26 PM EDT Kt Fan DO URINE ORDERABLES Final Resu lt [facility]
[address] [place] [address], [place] [phone] * (ABNORMAL) Magnesium (08/19/2024 3:02 PM EDT) Magnesium 1.5(L) 1.6 - 2.6 mg/dL 08/19/2024 5:12 PM EDT [facility] Blood Line / Unknown 08/19/2024 3: 02 PM EDT 08/19/2024 3:10 PM EDT Kt Fan DO LAB BLOOD ORDERABLES Final Result Performing Organization Address City/[facility]/ZIP Co de Phone Number [facility]
[address] [place] [address], [place] [phone] * Urinalysis, Microscopic Only - Urine, Clean Catch (08/19/2024 3:02 PM EDT) RBC, UA 0-2 None Seen, 0-2 /HPF 08/19/2024 3:33 PM EDT [facility] WBC, UA 0-2 None Seen, 0-2 /HPF 08/19/2024 3:33 PM EDT [facility] Bacteria, UA None Seen None Seen /HPF 08/19/2024 3:33 PM EDT [facility] Squamous Epithelial Cells, UA 0-2 None Seen, 0-2 /HPF 08/19/2024 3:33 PM EDT [facility] Hyaline Casts, UA None Seen None Seen /LPF 08/19/2024 3:33 PM EDT [facility] Methodology Automated Microscopy 08/19/2024 3:33 PM EDT [facility] Urine Urine specimen obtained by clean catch procedure / Unknown Collection / Unknown 08/19/2024 3:02 PM EDT 08/19/2024 3:13 PM EDT Kt Fan DO URINE ORDERABLES Final Resu lt [facility]
[address] [place] [address], * (ABNORMAL) CBC Auto Differential (08/19/2024 3:02 PM EDT) WBC 9.19 3.40 - 10.80 10*3/mm3 08/19/2024 3:23 PM EDT [facility] RBC 3.58(L) 3.77 - 5.28 10*6/mm3 08/19/2024 3:23 PM EDT [facility] Hemoglobin 10.5(L) 12.0 - 15.9 g/dL 08/19/2024 3:23 PM EDT [facility] Hematocrit 31.4(L) 34.0 - 46.6 % 08/19/2024 3:23 PM EDT [facility] MCV 87.7 79.0 - 97.0 fL 08/19/2024 3:23 PM EDT [facility] MCH 29.3 26.6 - 33.0 pg 08/19/2024 3:23 PM EDT [facility] MCHC 33.4 31.5 - 35.7 g/dL 08/19/2024 3:23 PM EDT [facility] RDW 13.4 12.3 - 15.4 % 08/19/2024 3:23 PM EDT [facility] RDW-SD 42.4 37.0 - 54.0 fl 08/19/2024 3:23 PM EDT [facility] MPV 12.0 6.0 - 12.0 fL 08/19/2024 3:23 PM EDT [facility] Platelets 241 140 - 450 10*3/mm3 08/19/2024 3:23 PM EDT [facility] Neutrophil % 66.8 42.7 - 76.0 % 08/19/2024 3:23 PM EDT [facility] Lymphocyte % 24.4 19.6 - 45.3 % 08/19/2024 3:23 PM EDT [facility] Monocyte % 7.6 5.0 - 12.0 % 08/19/2024 3:23 PM EDT [facility] Eosinophil % 0.7 0.3 - 6.2 % 08/19/2024 3:23 PM EDT [facility] Basophil % 0.2 0.0 - 1.5 % 08/19/2024 3:23 PM EDT [facility] Immature Grans % 0.3 0.0 - 0.5 % 08/19/2024 3:23 PM EDT [facility] Neutrophils, Absolute 6.14 1.70 - 7.00 10*3/mm3 08/19/2024 3:23 PM EDT [facility] Lymphocytes, Absolute 2.24 0.70 - 3.10 10*3/mm3 08/19/2024 3:23 PM EDT [facility] Monocytes, Absolute 0.70 0.10 - 0.90 10*3/mm3 08/19/2024 3:23 PM EDT [facility] Eosinophils, Absolute 0.06 0.00 - 0.40 10*3/mm3 08/19/2024 3:23 PM EDT [facility] Basophils, Absolute 0.02 0.00 - 0.20 10*3/mm3 08/19/2024 3:23 PM EDT [facility] Immature Grans, Absolute 0.03 0.00 - 0.05 10*3/mm3 08/19/2024 3:23 PM EDT [facility] nRBC 0.0 0.0 - 0.2 /100 WBC 08/19/2024 3:23 PM EDT [facility] Blood Line / Unknown 08/19/2024 3: 02 PM EDT 08/19/2024 3:10 PM EDT Kt Fan DO LAB BLOOD ORDERABLES Final Result [facility]
[address] [place] [address], * (ABNORMAL) Urinalysis With Microscopic If Indicated (No Culture) - Urine, Clean Catch (08/19/2024 3:02 PM EDT) Color, UA Yellow Yellow, Straw 08/19/2024 3:33 PM EDT [facility] Appearance, UA Clear Clear 08/19/2024 3:33 PM EDT [facility] pH, UA >=9.0(H) 5.0 - 8.0 08/19/2024 3:33 PM EDT [facility] Specific [place], UA 1.018 1.005 - 1.030 08/19/2024 3:33 PM EDT [facility] Glucose, UA Negative Negative 08/19/2024 3:33 PM EDT [facility] Ketones, UA 15 mg/dL (1+)(A) Negative 08/19/2024 3:33 PM EDT [facility] Bilirubin, UA Negative Negative 08/19/2024 3:33 PM EDT [facility] Blood, UA Negative Negative 08/19/2024 3:33 PM EDT [facility] Protein, UA 30 mg/dL (1+)(A) Negative 08/19/2024 3:33 PM EDT [facility] Leuk Esterase, UA Negative Negative 08/19/2024 3:33 PM EDT [facility] Nitrite, UA Negative Negative 08/19/2024 3:33 PM EDT [facility] Urobilinogen, UA 1.0 E.U./dL 0.2 - 1.0 E.U./dL 08/19/2024 3:33 PM EDT [facility] Urine Urine specimen obtained by clean catch procedure / Unknown Collection / Unknown 08/19/2024 3:02 PM EDT 08/19/2024 3:13 PM EDT us Kt Fan DO URINE ORDERABLES Final Resu lt [facility]
[address] [place] [address], [place] [phone] * Amylase (08/19/2024 3:02 PM EDT) Amylase 73 28 - 100 U/L 08/19/2024 3:36 PM EDT [facility] Blood Line / Unknown 08/19/2024 3: 02 PM EDT 08/19/2024 3:10 PM EDT us Kt Fan DO LAB BLOOD ORDERABLES Final Result Performing Organization Address [facility] Co de Phone Number [facility]
[address] [place] [address], [place] [phone] * Lipase (08/19/2024 3:02 PM EDT) Lipase 13 13 - 60 U/L 08/19/2024 3:36 PM EDT [facility] Blood Line / Unknown 08/19/2024 3: 02 PM EDT 08/19/2024 3:10 PM EDT us Kt Fan DO LAB BLOOD ORDERABLES Final Result Performing Organization Address City/[facility]/ZIP Co de Phone Number [facility]
[address] [place] [address], [place] [phone] * (ABNORMAL) Comprehensive Metabolic Panel (08/19/2024 3:02 PM EDT) Glucose 75 65 - 99 mg/dL 08/19/2024 3:38 PM EDT [facility] BUN 3.6(L) 6.0 - 20.0 mg/dL 08/19/2024 3:38 PM T [facility] Creatinine 0.51(L) 0.57 - 1.00 mg/dL 08/19/2024 3:38 PM EDT [facility] Sodium 137 136 - 145 mmol/L 08/19/2024 3:38 PM T [facility] Potassium 2.6(LL) 3.5 - 5.2 mmol/L 08/19/2024 3:38 PM [facility] Comment:Specimen hemolyzed. Result may be falsely elevated. Chloride 99 98 - 107 mmol/L 08/19/2024 3:38 PM [facility] CO2 24.2 22.0 - 29.0 mmol/L 08/19/2024 3:38 PM T [facility] Calcium 8.8 8.6 - 10.5 mg/dL 08/19/2024 3:38 PM T [facility] Total Protein 6.6 6.0 - 8.5 g/dL 08/19/2024 3:38 PM [facility] Albumin 3.4(L) 3.5 - 5.2 g/dL 08/19/2024 3:38 PM [facility] ALT (SGPT) 10 1 - 33 U/L 08/19/2024 3:38 PM T [facility] AST (SGOT) 22 1 - 32 U/L 08/19/2024 3:38 PM T [facility] Alkaline Phosphatase 64 39 - 117 U/L 08/19/2024 3:38 PM [facility] Total Bilirubin 0.5 0.0 - 1.2 mg/dL 08/19/2024 3:38 PM T [facility] Globulin 3.2 gm/dL 08/19/2024 3:38 PM T [facility] Comment:Calculated Result A/G Ratio 1.1 g/dL 08/19/2024 3:38 PM EDT [facility] BUN/Creatinine Ratio 7.1 7.0 - 25.0 08/19/2024 3:38 PM EDT [facility] Anion Gap 13.8 5.0 - 15.0 mmol/L 08/19/2024 3:38 PM EDT [facility] eGFR 126.6 >60.0 mL/min/1.7 3 08/19/2024 3:38 PM EDT [facility] Blood Line / Unknown 08/19/2024 3: 02 PM EDT 08/19/2024 3:10 PM EDT [facility] - 08/19/2024 3:38 PM EDT [...] LAB BLOOD ORDERABLES Final Result [facility]
[address] [place] [address], * Type & Screen (08/19/2024 3:02 PM EDT) ABO Type O 08/19/2024 3:51 PM EDT [facility] RH type Positive 08/19/2024 3:51 PM EDT [facility] Antibody Screen Negative 08/19/2024 3:51 PM EDT [facility] T&S Expiration Date 08/22/2024 11:59:59 PM 08/19/2024 3:51 PM EDT [facility] Blood Line / Unknown 08/19/2024 3: 02 PM EDT 08/19/2024 3:15 PM EDT Kt Fan DO BLOOD BANK TEST ORDERABLES Edited Result - Final [facility]
[address] [place] [address], documented in this encounter Visit Diagnoses Diagnosis [...] BPA Driven Protocol Open Order & Select [facility] Electrolyte Replacement Protocol Algorithm to View Details [...] documented as of this encounter Care Teams Review Analyst Relationship Specialty Start Date End Date Norma Friedman APRN [address] [place] G3 RAFAELA APPIAH [id number] PCP - General Family Medicine 05/14/24 documented as of this encounter
--- OUTSIDE RECORDS SUMMARY | 2024-08-20 13:44 | XMS_ITS | Encounter Summary ---
[facility] Address [address] [place] [id number] Care Team Providers Care Distribution Designer Name Role Phone IvyKade goldbergdev FERNÁNDEZ Primary Care Provider + [phone] Reason for Visit * Auth/Cert (Routine) Specialty Diagnoses / Procedures Referred By Contac t Referred To Contact Referral ID Status Reason Start Date Expiration Date Visits Re quested Visits Authorized 1 1 Encounter Details Date Type Department Care Team (Late st Contact Info) Description 08/20/2024 1:44 PM EDT Anesthesia Event [facility] ENDO SUITES [address] [place] [phone] Akash Anguiano MD 425 [place] [address] Liborio Peralta CRNA 425 [place] [address] Anesthesia Record Procedure Summary Procedure Name Responsible [...] heating? Not hard at all 05/28/2024 [facility] [place] of Occupat ional Health - Occupational Stress [...] GED or equivalent No 05/28/2024 Preferred Language Mozambican 05/28/2024 PHQ-2 Answer Date Recorded Patient Health [...] 1:23 PM EDT Polly Lacey RN * [place] Suicide Severity Rating Scale (Screener/Recent Self-Report) Question Answer Date of Assessment Author 6. Suicidal Behavior (Lifetime) No 1:23 PM EDT Polly Cabrera RN documented as of this encounter OR Notes * Anesthesia Postprocedure Evaluation - Liborio Peralta CRNA - 08/20/2024 2:18 PM EDT Patient: Whitney Presley Procedure Summary Date: 08/20/24 Room / Location: [facility] ENDOSCOPY 3 / [facility] Anesthesia Start: [...] sounds: normal. 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 Plan discussed with PRICE CLERK. CODE STATUS: documented in this encounter Plan of Treatment Upcoming Encounters Date Type Department Care Team (Late st Contact Info) Description 01/20/2025 3:30 PM EST Office Visit [facility] GASTROENTEROLOGY [address] [facility] [address] Robbin Escalante MD [address] [address] documented as of this encounter Procedures Procedure [...] and Staff Patient location during procedure: [place] PRICE CLERK/CAA: Junior Zbigniew Jain, DAYNE Indications and Patient [...] as of this encounter Care Teams Distribution Designer Relationship Specialty Start Date End Date Norma Friedman APRN [address] [place] [place] [id number] PCP - General Family Medicine 05/14/24 documented as of this encounter
--- OUTSIDE RECORDS SUMMARY | 2024-08-29 10:00 | XMS_ITS | Encounter Summary ---
[facility] Address [address] [place] [address] Care Team Providers Care Carpet Cleaner Name Role Phone IvyKade goldbergjoseseven JOLENE Primary Care Provider + [phone] Reason for Visit * Reason Comments Problem Encounter Details Date Type Department Care Team (Late st Contact Info) Description 08/29/2024 10:00 AM EDT Routine [facility] OBGYN [address] [place] [address] Staci Jain MD [address] [place] [address] GA: 26w4d Social History Tobacco Use Types Packs/Day Years Used Date Smoking Tobacco: Never Smokeless Tobacco: Never Alcohol Use Standard Drinks/Week Comments Never 0 (1 standard drink = 0.6 oz pur e alcohol) [facility] Utilities Answer Date Recorded In the past 12 months has [employer], gas, oil, or water [employer] threatened to shut off services in your [...] hard at all 05/28/2024 [facility] [place] [facility] - Occupational Stress Questionnaire [...] Visit [facility] GASTROENTEROLOGY [address] [address] Robbin Escalante MD [address] [address] documented as of this encounter Procedures Procedure [...] 08/30/2024 6:09 AM EDT Performed at: [address] [id number] Telegraph Service Rater: Kevin Harman MD, Phone: [phone] Patient Fasting: N us Staci Jain MD LAB BLOOD ORDERABLES Final Result [facility] (AMBULATORY) [address] [place] [address], [facility] [address] [place] [address], * (ABNORMAL) Comprehensive Metabolic Panel (08/29/2024 11:05 [...] 11:0 5 AM EDT 08/29/2024 Narrative [facility] (AMBULATORY) - 08/30/2024 6:09 AM EDT Performed at: 01 - [place] [address] [place], [place] [id number] Telegraph Service Rater: Kevin Harman MD, Phone: [phone] Patient Fasting: N Staci Jain MD LAB BLOOD ORDERABLES Final Result Performing Organization Address City/[facility]/ZIP Co de Phone Number [facility] (AMBULATORY) [address] [place] [address], [place] [phone] [facility] [address] [place] [address], [place] [phone] * (ABNORMAL) POC Urinalysis Dipstick (08/29/2024 10:13 AM EDT) Glucose, UA Negative Negative mg/dL [facility] Protein, POC Trace(A) Negative mg/dL [facility] Urine 08/29/2024 10:1 3 AM EDT us Staci Jain MD POINT OF CARE TEST OR DERABLES Final Result Performing Organization Address City/[facility]/ZIP Co de Phone Number [facility]
[address] [place] [address], documented in this encounter Visit Diagnoses Diagnosis [...] documented as of this encounter Care Teams Carpet Cleaner Relationship Specialty Start Date End Date Norma Friedman APRN [address] [place] [place] [address] PCP - General Family Medicine 05/14/24 documented as of this encounter
--- OUTSIDE RECORDS SUMMARY | 2024-09-23 10:00 | XMS_ITS | Encounter Summary ---
Author Organization [facility] Address [address] [place] [address] Care Team Providers Care Crankshaft Balancer Name Role Phone Norma Friedman JOLENE Primary Care Provider +1- [phone] Reason for Referral * Consultation (Routine) - Closed Specialty Diagnoses / Procedures Referred By Contac t Referred To Contact Cardiology Diagnoses Supervision of high risk , antepartum Cardiac arrhythmia, unspecified cardiac arrhythmia type Liborio Weller MD [address] [facility] [address] [place] [address] Phone: tel: fax: Referral ID Status Reason Start Date Expiration Date V isits Requested Visits Authorized [id number] Closed Specialty Services Required 09/23/2024 03/25/2026 1 1 Encounter Details Date Type Department Care Team ([facility] st Contact Info) Description 09/23/2024 10:00 AM EDT Office Visit Medical Office Building Obstetrics and Gynecology [address] [facility], [address] [place] [address] Liborio Weller MD [address] [facility] [address] [place] [address] Supervision of high risk , [...] more drinks on one occasion? Never 09/23/2024 [place] Depression Scale Answer Date Recorded [place] Depression Scale Total 0 09/23/2024 The thought [...] last week on 09/19. She presented to [facility] for chest pain and palpitations. She [...] 09/25 and has otherwise never seen a principal ios developer. She has never seen a rn social work. She also reports during this admission she [...] None N JAGDISH Complications: Potassium (K) deficiency [place] Depression Scale Total: 0 Gynecology History No [...] has a past surgical history that includes [place] tooth extraction (N/A); section, low transverse (N/A); [...] prescription(s): ferosul, potassium chloride cr, prenat mv-min w/jy-ehoaxe-znf, and thiamine. Allergies Allergies[1] Review of Systems [...] Had tachycardia and arrhythmia during admission to [facility] on 09/19 HR to 170s-180s with standing, [...] other day Has never been evaluated by principal ios developer for salt wasting nephropathy PLAN Has nephrology [...] the patient, and documenting this visit. (Est [id number]) Brandee Pringle MD Obstetrics & Gynecology, PGY-2 [...] Description 10/24/2024 8:00 AM EDT Office Visit [facility] [place] [address] [facility] [facility], [address] [place] [address] Nneka Block MD [address] [place] [address] 10/24/2024 9:45 AM EDT Routine Medical Office Building Obstetrics and Gynecology [address] [facility], [address] [place] [address] Nneka Gipson MD [address] [place] [address] 12/25/2024 1:00 PM EST Office Visit [facility] Nephrology, Bone & Mineral Metabolism [address] [facility], [address] [place] [address] Scheduled Referrals Name Type Priority [...] Ketones, Urine 40(A) Negative mg/dL POCT Specific [place], Urine 1.015 POCT Blood, Urine Negative Negative POCT pH, Urine >=9.0(A) 5.0 to 8.0 POCT Protein, Urine 100(A) Negative mg/dL POCT Urobilinogen, Urine 0.2 0.2, 1 E.U./dL POCT Nitrite, Urine Negative Negative POCT Leukocyte Esterase, Urine Negative Negative Test Strip Lot Number [id number] Test Strip Lot Expiration 07/2025 Urine Urine specimen obtained by clean catch procedure / Unknown 09/23/2024 10:54 AM EDT iLborio Weller MD POINT OF CARE TEST ENTER/EDIT [...] documented as of this encounter Care Teams Crankshaft Balancer Relationship Specialty Start Date End Date Norma Friedman APRN [address] [place] [address] PCP - General 09/23/24 documented as of this encounter
--- OUTSIDE RECORDS SUMMARY | 2024-09-25 14:20 | XMS_ITS | Encounter Summary ---
Author Organization Healthcare Address [address] [place] [address] Care Team Providers Care Hatchery Employee Name Role Phone Norma Friedman JOLENE Primary Care Provider +1- [phone] Reason for Referral * Consultation (Routine) - Authorized Specialty Diagnoses / Procedures Referred By Tarik pedersen Referred To Contact Diagnoses Hypokalemia Bill Patrick MD [address] [place] [phone] Phone: tel: fax: Referral ID Status Reason Start Date Expiration Date V isits Requested Visits Authorized [id number] Authorized 09/25/2024 03/27/2026 1 1 * Imaging (Routine) - Authorized Specialty Diagnoses / Procedures Referred By Tarik pedersen Referred To Contact Radiology Diagnoses Hypokalemia Procedures US Renal Complete Bill Patrick MD [address] [place] [phone] Phone: tel: fax: Referral ID Status Reason Start Date Expiration Date V isits Requested Visits Authorized [id number] Authorized 09/25/2024 03/27/2026 1 1 Reason for Visit * Reason Comments Consult * Consultation (Routine) - Closed Specialty Diagnoses / Procedures Referred By Tarik pedersen Referred To Contact Nephrology Diagnoses Hypokalemia Liborio Weller MD [address] [address] Phone: tel: fax: [facility] Nephrology, Bone & Mineral Metabolism [address] , [address] [place] [address] Phone: tel: fax: Referral ID Status Reason Start Date Expiration Date V isits Requested Visits Authorized [id number] Closed Specialty Services Required 09/14/2024 03/16/2026 1 1 Encounter Details Date Type Department Care Team (Late st Contact Info) Description 09/25/2024 2:20 PM EDT Office Visit [facility] Nephrology, Bone & Mineral Metabolism [address] , [address] [place] [address] Bill Patrick MD [address] [place] [address] Hypokalemia (Primary Dx) Social History [...] more drinks on one occasion? Never 09/23/2024 [place] Depression Scale Answer Date Recorded [place] Depression Scale Total 0 09/23/2024 The thought [...] 37 weeks andshe did not see a Auto Driver at that time. Also notes she has [...] Date SECTION, LOW TRANSVERSE N/A section from [facility] DILATION AND CURETTAGE OF UTERUS N/A Dilation and curettage from [facility] WISDOM TOOTH EXTRACTION N/A Oral Surgery Tooth Extraction [place] Tooth from [facility] [3] Family History Problem Relation Name Age [...] mouth 3 times a day.) Prenat MV-Min w/Wv-[id number]-[id number] ( COMPLETE PO) thiamine (Vitamin B-1) 100 [...] Description 10/24/2024 8:00 AM EDT Office Visit [facility] [place] [address] [facility] [address] [facility], [address] [place] [address] Nneka Block MD [address] [place] [address] 10/24/2024 9:45 AM EDT Routine [facility] Building Obstetrics and Gynecology [address] [facility] [address] [facility], [address] [place] [address] Nneka Gipson MD [address] [place] [address] 12/25/2024 1:00 PM EST Office Visit [facility] Nephrology, Bone & Mineral Metabolism [address] [facility], [address] [place] [address] Scheduled Orders Name Type Priority [...] Chloride, Urine 25 mmol/L 2:03 PM EDT [facility] Urine Urine specimen obtained by clean catch procedure / Unknown Non-blood Collection / Unknown 09/26/2024 10:07 AM EDT 09/26/2024 10:07 AM EDT us Bill Patrick MD LAB URINE ORDERABLES Final Resul t [facility] [address] [place] [address] * Protein, Random, Urine with Creatinine (09/26/2024 10:03 AM EDT) Protein, Urine 26 mg/dL 09/26/2024 12:08 PM EDT [facility] Creatinine, Urine 199 mg/dL 09/26/2024 12:08 PM EDT [facility] Protein/Creati nine Ratio 0.1 mg/mg Creat 09/26/2024 12:08 PM EDT [facility] Urine Urine specimen obtained by clean catch procedure / Unknown Non-blood Collection / Unknown 09/26/2024 10:03 AM EDT 09/26/2024 10:04 AM EDT us Bill Patrick MD LAB URINE ORDERABLES Final Resul t Performing Organization Address City/[facility] Co de Phone Number [facility] [address] [place] [address] * Potassium, urine, random (09/26/2024 10:02 AM EDT) Potassium, Urine 43 mmol/L 09/26/2024 11:55 AM EDT [facility] Urine Urine specimen obtained by clean catch procedure / Unknown Non-blood Collection / Unknown 09/26/2024 10:02 AM EDT 09/26/2024 10:02 AM EDT us Bill Patrick MD LAB URINE ORDERABLES Final Resul t Performing Organization Address [facility] de Phone Number [facility] [address] [place] [address] * Osmolality, urine (09/26/2024 10:02 AM EDT) Osmolality, Urine 404 50 - 1,200 mOsm/kg 09/26/2024 1:48 PM EDT [facility] Urine Urine specimen obtained by clean catch procedure / Unknown Non-blood Collection / Unknown 09/26/2024 10:02 AM EDT 09/26/2024 10:02 AM EDT us Bill Patrick MD LAB URINE ORDERABLES Final Resul t Performing Organization Address City/[facility] Co de Phone Number [facility] [address] [place] [address] * Sodium, urine, random (09/26/2024 10:02 AM EDT) Sodium, Urine 110 mmol/L 09/26/2024 11:55 AM EDT [facility] Urine Urine specimen obtained by clean catch procedure / Unknown Non-blood Collection / Unknown 09/26/2024 10:02 AM EDT 09/26/2024 10:02 AM EDT Bill Patrick MD LAB URINE ORDERABLES Final Resul t [facility] [address] [place] [address] * Antinuclear Antibody (JEFFERY), HEp-2, IgG (09/26/2024 9:32 AM EDT) JEFFERY INTERPRETIVE COMMENT See Note 09/28/2024 5:13 PM EDT [facility] ([email or web address]) Anti Nuc Ab Screen <1:80 <1:80 09/28/2024 5:13 PM EDT [facility] ([employer]) Blood Venous blood specimen / Unknown Venipuncture / Unknown 09/26/2024 9:32 AM EDT 09/26/2024 9:32 AM EDT Narrative [facility] ([facility]) - 09/28/2024 5:13 PM EDT [...] rings, and cytoplasmic speckled patterns. Performed By: [facility] [address] [place] [address] Associate Entertainment Editor: Brandon Bell MD, PhD CLIA Number: [id number] Bill Patrick MD LAB BLOOD ORDERABLES Final Resul t Performing Organization Address City/[facility]/ZIP Co de Phone Number [employer]) [address] [place] [address] * Rheumatoid factor, plasma (09/26/2024 9:32 AM EDT) Rheumatoid Factor, Plasma <10 <14 IU/mL 09/26/2024 1:49 PM EDT [facility] Blood Venous blood specimen / Unknown Venipuncture / Unknown 09/26/2024 9:32 AM EDT 09/26/2024 9:32 AM EDT Bill Patrick MD LAB BLOOD ORDERABLES Final Resul t [facility] [address] [place] [address] * SSB (LA) (YARA) ANTIBODY, IGG (09/26/2024 9:32 AM EDT) SSB (LA) (YARA) Antibody, IgG 0 0 - 40 AU/mL 09/28/2024 5:47 PM EDT [employer]) Serum Venous blood specimen / Unknown 09/26/2024 9:32 AM EDT 09/26/2024 9:32 AM EDT Narrative [employer]) - 09/28/2024 5:47 PM EDT INTERPRETIVE INFORMATION: [...] (PSS) also have this antibody. Performed By: [facility] [address] [place] [address] Associate Entertainment Editor: Brandon Bell MD, PhD CLIA Number: [id number] Bill Patrick MD LAB BLOOD ORDERABLES Final Resul t [facility] ([employer]) [address] [place] [address] * SSA 52 and 60 (Ro) (YARA) Antibodies, IgG (09/26/2024 9:32 AM EDT) SSA-52 (RO52) (YARA) Antibody, IgG 2 0 - 40 AU/mL 09/28/2024 5:47 PM EDT [facility] ([employer]) SSA-60 (RO60) (YARA) Antibody, IgG 0 0 - 40 AU/mL 09/28/2024 5:47 PM EDT [facility] ([employer]) Serum 09/26/2024 9:32 AM EDT 09/26/2024 9:32 AM EDT Narrative [facility] ([employer]) - 09/28/2024 5:47 PM EDT INTERPRETIVE INFORMATION: [...] AU/mL or Greater .......... Positive Performed By: [facility] [address] [place] [address] Associate Entertainment Editor: Brandon Bell MD, PhD CLIA Number: [id number] Bill Patrick MD LAB REF LAB BLOOD AND FLUID ORD Final Result [facility] ([employer]) [address] [place] [address] * (ABNORMAL) Renal function panel (09/26/2024 9:32 [...] 113.4 mL/min/1.7 3m*2 09/26/2024 12:24 PM EDT [facility] Comment:Reported eGFRcr in m L/min/1.73m2 is based the CKD-EPI 2020 equation that does not use a race coefficient. Blood Venous blood specimen / Unknown Venipuncture / Unknown 09/26/2024 9:32 AM EDT 09/26/2024 9:32 AM EDT us Bill Patrick MD LAB BLOOD ORDERABLES Final Resul t Performing Organization Address City/[facility] Co de Phone Number [facility] [address] [place] [address] * (ABNORMAL) Osmolality (09/26/2024 9:32 AM EDT) Osmolality, Serum 273(L) 275 - 295 mOsm/Kg 09/26/2024 2:10 PM EDT [facility] Blood Venous blood specimen / Unknown Venipuncture / Unknown 09/26/2024 9:32 AM EDT 09/26/2024 9:32 AM EDT us Bill Patrick MD LAB BLOOD ORDERABLES Final Resul t Performing Organization Address City/[facility] Co de Phone Number [facility] [address] [place] [address] documented in this encounter Visit Diagnoses Diagnosis Hypokalemia- Primary Hypopotassemia documented in this encounter Additional Health Concerns Assessment Noted Time A fall risk assessment has been complete d for the patient 09/25/2024 3:05 PM EDT A Body Mass Index follow-up plan has been documented for the patient 10/05/2024 8:54 PM EDT documented as of this encounter Care Teams Hatchery Employee Relationship Specialty Start Date End Date Norma Friedman APRN [address] [place] [address] PCP - General 09/23/24 documented as of this encounter
--- OUTSIDE RECORDS SUMMARY | 2024-09-26 08:00 | XMS_ITS | Encounter Summary ---
Author Organization [facility] Address [address] [place] [address] Care Team Providers Care Programs Assistant Name Role Phone Norma Friedman LIBRARIAN SPECIAL LIBRARY Primary Care Provider +1- [phone] Lizz Trinh RN Unavailable Unavailable Reason for Referral * Consultation (Routine) - Authorized Specialty Diagnoses / Procedures Referred By Tarik pedersen Referred To Contact Diagnoses Palpitations Syncope and collapse Nneka Vasquez MD [address] [place] [phone] Phone: tel: fax: Referral ID Status Reason Start Date Expiration Date V isits Requested Visits Authorized [id number] Authorized 09/26/2024 03/28/2026 1 1 * Cardiac Stress Testing (Routine) - Closed Specialty Diagnoses / Procedures Referred By Contac t Referred To Contact Cardiology Diagnoses Palpitations Syncope and collapse Procedures Adult Patch Monitor - 7 Day Nneka Vasquez MD [address] [place] [phone] Phone: tel: fax: Referral ID Status Reason Start Date Expiration Date Visits Re quested Visits Authorized [id number] Closed 09/26/2024 03/28/2026 1 1 Reason for Visit * Consultation (Routine) - Closed Specialty Diagnoses / Procedures Referred By Contac t Referred To Contact Cardiology Diagnoses Supervision of high risk , antepartum Cardiac arrhythmia, unspecified cardiac arrhythmia type EliotLiborio Preciado MD [address] [address] Phone: tel: fax: Referral ID Status Reason Start Date Expiration Date V isits Requested Visits Authorized [id number] Closed Specialty Services Required 09/23/2024 03/25/2026 1 1 Encounter Details Date Type Department Care Team (Late st Contact Info) Description 09/26/2024 8:00 AM EDT Office Visit [facility] [place] [address] [facility], [address] [place] [address] Nneka Vasquez MD [address] [place] [address] Syncope and collapse (Primary Dx); [...] more drinks on one occasion? Never 09/23/2024 [place] Depression Scale Answer Date Recorded [place] Depression Scale Total 0 09/23/2024 The thought [...] Vasquez MD - 09/26/2024 8:00 AM EDT [place] [facility] ([facility]) Problem List #Hypomagnesium and Hypokalemia -- [...] home with no plans. 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 and [...] TOOTH EXTRACTION N/A Oral Surgery Tooth Extraction [place] Tooth from [employer] [3] Social History Socioeconomic History Marital status: [...] Low Risk (05/28/2024) Received from [facility] Overall Financial Resource Strain (CARDIA) Difficulty of Paying Living Expenses: Not hard at all Food Insecurity: No Food Insecurity (05/28/2024) Received from [facility] Hunger Vital Sign Within the past 12 months, you worried that your food would run out before you got the money to buymore.: Never true Within the past 12 months, the food you bought just didn't last and you didn't have money to get more.: Never true Transportation Needs: No Transportation Needs (05/28/2024) Received from [facility] PRAPARE - Transportation In the past 12 months, has lack of transportation kept you from medical appointments or from getting medications?: No In the past 12 months, has lack of transportation kept you from meetings, work, or from getting things needed for daily living?: No Physical Activity: Sufficiently Active (05/28/2024) Received from [facility] Exercise Vital Sign On average, how many days per week do you engage in moderate to strenuous exercise (like a brisk walk)?: 5 days On average, how many minutes do you engage in exercise at this level?: 40 min Stress: Stress Concern Present (05/27/2024) Received from [facility] Citizen Of [place] [employer] - Occupational Stress Questionnaire Feeling of Stress : To some extent Social Connections: Not At Risk (05/28/2024) Received from [facility] Family and Community Support If for any reason you need help with day-to-day activities such as bathing, preparing meals, shopping, managing finances, etc., do you get the help you need?: I don't need any help How often do you feel lonely or isolated from those around you?: Sometimes Intimate Partner Violence: Not At Risk (08/19/2024) Received from [facility] Abuse Screen Feels Unsafe at Home or Work/School: no Feels Threatened by Someone: no Does Anyone Try to Keep You From Having Contact with Others or Doing Things Outside Your Home?: no Physical Signs of Abuse Present: no Housing Stability: Not At Risk (08/20/2024) Received from [facility] Housing Stability Current Living Arrangements: home [...] Description 10/24/2024 8:00 AM EDT Office Visit [facility] [place] [address] [facility], [address] [place] [address] Nneka Vasquez MD [address] [place] [address] 10/24/2024 9:45 AM EDT Routine Medical Office Building Obstetrics and Gynecology [address] [facility], [address] [place] [address] Nneka Gipson MD [address] [place] [address] 12/25/2024 1:00 PM EST Office Visit [facility] Nephrology, Bone & Mineral Metabolism [address] [facility], [address] [place] [address] Scheduled Referrals Name Type Priority [...] rate was 181 bpm on Day 3 08:47:57 pm SVE(s): [place] was 3.46 %, [address] total SVE(s) SV Arrhythmia(s): 21 events, longest event 7 beats on Day 03:05:26 am, fastest event 111 bpm on Day 02:02:39 am PVC(s): [place] was 0.03 %, 189 total PVC(s), 1 [...] ECG Atrial Rate 84 BPM MUSE ECG [place] Interval 148 ms MUSE ECG QRSD Interval 74 ms MUSE ECG QT Interval 374 ms MUSE ECG QTC Interval 441 ms MUSE ECG P [place] 60 degrees MUSE ECG R [place] 36 degrees MUSE ECG T Wave [place] 55 degrees MUSE ECG Diagnosis Normal sinus rhythm with sinus arrhythmia MUSE ECG Diagnosis Normal ECG MUSE ECG Diagnosis MUSE ECG Diagnosis Confirmed by Abad South ([id number]) on 09/26/2024 12:13:59 PM MUSE ECG 09/26/2024 [...] documented as of this encounter Care Teams Programs Assistant Relationship Specialty Start Date End Date Norma Friedman APRN [address] [place] [address] PCP - General 09/23/24 Lizz Trinh, RN [facility] Registered Nurse Cardiology 09/26/24 documented as of this encounter
--- OUTSIDE RECORDS SUMMARY | 2024-09-26 09:06 | XMS_ITS | Encounter Summary ---
Author Organization [facility] Address [address] [place] [address] Care Team Providers Care Distance Learning Coordinator Name Role Phone Elder Kadedev Coy INFECTION CONTROL COORDINATOR Primary Care Provider +1- [phone] Lizz Trinh RN Unavailable Unavailable Reason for Referral * Cardiac Stress Testing (Routine) - Closed Specialty Diagnoses / Procedures Referred By Tarik pedersen Referred To Contact Cardiology Diagnoses Palpitations Syncope and collapse Procedures Adult Patch Monitor - 7 Day Nneka Vasquez MD [address] [place] [address] Phone: tel: fax: Referral ID Status Reason Start Date Expiration Date Visits Re quested Visits Authorized [id number] Closed 09/26/2024 03/28/2026 1 1 Reason for Visit * Cardiac Stress Testing (Routine) - Closed Specialty Diagnoses / Procedures Referred By Tarik pedersen Referred To Contact Cardiology Diagnoses Palpitations Syncope and collapse Procedures Adult Patch Monitor - 7 Day Nneka Vasquez MD [address] [place] [address] Phone: tel: fax: Referral ID Status Reason Start Date Expiration Date Visits Re quested Visits Authorized [id number] Closed 09/26/2024 03/28/2026 1 1 Encounter Details Date Type Department Care Team (Latest Contact Info) Description 09/26/2024 9:06 AM EDT - 09/26/2024 11:59 PM EDT Hospital Encounter Medical Office Building Cardiac Diagnostic Testing Medical Office Building Echo Lab [address], [address] [place] [address] Palpitations; Syncope and collapse Discharge [...] more drinks on one occasion? Never 09/23/2024 [place] Depression Scale Answer Date Recorded [place] Depression Scale Total 0 09/23/2024 The thought [...] tablet by mouth daily. 09/12/2024 Prenat MV-Min w/Qa-Ymzzpn-GAQ ( COMPLETE PO) 12/25/2018 thiamine (Vitamin B-1) [...] Upcoming Encounters Date Type Department Care Team ([facility] st Contact Info) Description 10/24/2024 8:00 AM EDT Office Visit [facility] [place] [address], [address] [place] [address] Nneka Vasquez MD [address] [place] [address] 10/24/2024 9:45 AM EDT Routine Medical Office Building Obstetrics and Gynecology [address], [address] [place] [address] Nneka Gipson MD [address] [place] [address] 12/25/2024 1:00 PM EST Office Visit [facility] [place] Nephrology, Bone & Mineral Metabolism [address], [address] [place] [address] documented as of this encounter [...] was 181 bpm on Day 3 / :47:57 pm SVE(s): [place] was 3.46 %, [address] total SVE(s) SV Arrhythmia(s): 21 events, longest event 7 beats on Day :05:26 am, fastest event 111 bpm on Day :02:39 am PVC(s): [place] was 0.03 %, 189 total PVC(s), 1 [...] documented as of this encounter Care Teams Distance Learning Coordinator Relationship Specialty Start Date End Date Norma Friedman APRN [address] [place] [address] PCP - General 09/23/24 Lizz Trinh, RN [facility] Registered Nurse Cardiology 09/26/24 documented as of this encounter
--- OUTSIDE RECORDS SUMMARY | 2024-10-17 09:15 | XMS_ITS | Encounter Summary ---
Author Organization Healthcare Address [address] [place] [address] Care Team Providers Care Medicare Compliance Auditor Name Role Phone Norma Friedman JOLENE Primary Care Provider +1- [phone] Lizz Trinh RN Unavailable Unavailable Encounter Details Date Type Department Care Team (Latest Contact Info) Description 10/17/2024 9:15 AM EDT Routine Medical Office Building Obstetrics and Gynecology [address] [facility], [address] [place] [address] Nneka Gipson MD [address] [place] [address] NST (non-stress test) nonreactive (Primary [...] more drinks on one occasion? Never 09/23/2024 [place] Depression Scale Answer Date Recorded [place] Depression Scale Total 0 09/23/2024 The thought [...] Brandan with primary OB Dr Marin in [facility] O+/RI/HCV-/HIV- Needs HBV and syphilis G/C negative [...] Had tachycardia and arrhythmia during admission to [facility] on 09/19 HR to 170s-180s with [...] Kaitlyn Richter MD PGY-2, Obstetrics and Gynecology [facility] Cosigned by Nneka Gipson MD at 10/17/2024 12:41 PM EDT Associated attestation - Nneka Gipson MD - 10/17/2024 12:41 PM EDT I saw and evaluated the patient with the resident/fellow. I discussed the case with the resident/fellow and agree with the findings and plan as documented. Patient lives in [facility] about 1.5h away, has primary OB Dr [...] Description 10/24/2024 8:00 AM EDT Office Visit [facility] [place] [address] [facility], [address] [place] [address] Nneka Block MD [address] [place] [address] 10/24/2024 9:45 AM EDT Routine Medical Office Building Obstetrics and Gynecology [address] [facility], [address] [place] [address] Nneka Gipson MD [address] [place] [address] 12/25/2024 1:00 PM EST Office Visit [facility] Nephrology, Bone & Mineral Metabolism [address] [facility], [address] [place] [address] documented as of this encounter [...] Ketones, Urine Negative Negative mg/dL POCT Specific [place], Urine 1.015 POCT Blood, Urine Negative Negative POCT pH, Urine 8.5(A) 5.0 to 8.0 POCT Protein, Urine 30(A) Negative mg/dL POCT Urobilinogen, Urine 0.2 0.2, 1 E.U./dL POCT Nitrite, Urine Negative Negative POCT Leukocyte Esterase, Urine Negative Negative Test Strip Lot Number [id number] Test Strip Lot Expiration 07/2025 Urine Urine [...] as of this encounter Care Teams Medicare Compliance Auditor Relationship Specialty Start Date End Date Norma Friedman APRN [address] [place] [address] PCP - General 09/23/24 Lizz Trinh, RN [facility] Registered Nurse Cardiology 09/26/24 documented as of this encounter
--- OUTSIDE RECORDS SUMMARY | 2024-10-17 10:30 | XMS_ITS | Encounter Summary ---
Author Organization Healthcare Address [address] [place] [address] Care Team Providers Care Bias Cutting Machine Operator Name Role Phone Norma Friedman APRN Primary Care Provider +1- [phone] Lizz Trinh RN Unavailable Unavailable Reason for Visit * Imaging (Routine) - Closed Specialty Diagnoses / Procedures Referred By Tarik t Referred To Contact Obstetrics Diagnoses NST (non-stress test) nonreactive Procedures OB US Detail Anatomy OB US Biophysical Profile w Non Stress Test Nneka Gipson MD [address] [place] [address] Phone: tel: fax: Referral ID Status Reason Start Date Expiration Date Visits Re quested Visits Authorized [id number] Closed 10/17/2024 04/18/2026 1 1 Encounter Details Date Type Department Care Team (Latest Contact Info) Description 10/17/2024 10:30 AM EDT - 10/17/2024 3:46 PM EDT Hospital Encounter Medical Office Building Obstetrics and Gynecology [address] [facility], [address] [place] [address] NST (non-stress test) nonreactive Discharge [...] more drinks on one occasion? Never 09/23/2024 [place] Depression Scale Answer Date Recorded [place] Depression Scale Total 0 09/23/2024 The thought [...] Take 1 tablet by mouth daily. 09/12/2024 magnesium oxide (Mag-Ox) 400 (240 Mg) MG [...] not crush, chew, or split. Prenat MV-Min w/Sp-Gmtnhn-GDC ( COMPLETE PO) 12/25/2018 promethazine (Phenergan) 12.5 [...] Encounters Date Type Department Care Team ([facility] st Contact Info) Description 10/24/2024 8:00 AM EDT Office Visit [facility] [place] [address] [facility], [address] [place] [address] Nneka Block MD [address] [place] [address] 10/24/2024 9:45 AM EDT Routine Medical Office Building Obstetrics and Gynecology [address] [facility], [address] [place] [address] Nneka Gipson MD [address] [place] [address] 12/25/2024 1:00 PM EST Office Visit [facility] Nephrology, Bone & Mineral Metabolism [address] [facility], [address] [place] [address] documented as of this encounter [...] Please navigate to the Imaging tab in [employer] for review. This message has been generated by the interface. Narrative Procedure Note Melonie Wheeler MD - 10/17/2024 IMPRESSION: The OB Ultrasound you requested has been resulted. Please navigate to theImaging tab in [employer] for review. This message has been generated [...] documented as of this encounter Care Teams Bias Cutting Machine Operator Relationship Specialty Start Date End Date Norma Friedman APRN [address] [place] [address] PCP - General 09/23/24 Lizz Trinh, RN [facility] Registered Nurse Cardiology 09/26/24 documented as of this encounter
--- OUTSIDE RECORDS SUMMARY | 2024-10-17 15:47 | XMS_ITS | Encounter Summary ---
Author Organization Healthcare Address [address] [place] [address] Care Team Providers Care Acute Coordinator Name Role Phone dewayneashlyn Kadedev Coy CONTENT DEVELOPMENT SPECIALIST Primary Care Provider [phone] Lizz Trinh RN Unavailable Unavailable Reason for Visit * Auth/Cert (Routine) Specialty Diagnoses / Procedures Referred By Tarik pedersen Referred To Contact Diagnoses Hypokalemia Electrolyte abnormality Hilton Montelongo MD [address] [address] Phone: tel: fax: [facility] [address] [place] [address] Phone: tel: fax: Referral ID Status Reason Start Date Expiration Date Visits Re quested Visits Authorized [id number] 1 1 Encounter Details Date Type Department Care Team (Late st Contact Info) Description 10/17/2024 3:47 PM EDT - Present Hospital Encounter [facility] [address] [place] [address] Hilton Montelongo MD [address] [address] Social History Tobacco Use Types Packs/Day Years [...] more drinks on one occasion? Never 09/23/2024 [place] Depression Scale Answer Date Recorded [place] Depression Scale Total 0 09/23/2024 The thought [...] Sign Reading Time Taken Comments Blood Pressure 130/68 10/18/2024 10:45 AM EDT Pulse 99 10/18/2024 10:45 AM EDT Temperature 36.8 C (98.2 F) 10/17/2024 3:51 PM EDT Respiratory Rate 14 10/18/2024 10:45 AM EDT Oxygen Saturation 99% 10/18/2024 10:45 AM EDT Inhaled Oxygen Concentration - - Weight - - Height - - Body Mass Index - - documented in this encounter Miscellaneous Notes * Care Plan - Orlin Jimenez RN - 10/18/2024 3:05 AM EDT Problem: Adult Inpatient Plan of Care Goal: Plan of Care Review Outcome: Ongoing, Progressing Flowsheets (Taken 10/18/2024 0302) Progress: no change Plan of Care Reviewed With: patient Goal: Patient-Specific Goal (Individualized) Outcome: Ongoing, Progressing Flowsheets (Taken 10/18/2024 0302) Patient/Family-Specific Goals (Include Timeframe): PT will report pain >5, MITCHELL, LOF or increased SOB this PM shift to the RN. Individualized Care Needs: CLUSTER CARE Anxieties, Fears or Concerns: PT states she scared she will if her cardiac issues continue. Goal: Absence of Hospital-Acquired Illness or Injury Outcome: Ongoing, Progressing Goal: Optimal Comfort and Wellbeing Outcome: Ongoing, Progressing Intervention: Provide Person-Centered Care Flowsheets (Taken 10/18/2024 0302) Trust Relationship/Rapport: care explained choices provided emotional support provided empathic listening provided questions answered questions encouraged thoughts/feelings acknowledged reassurance provided Problem: Hospitalized Patient Goal: Optimal Patient- Wellbeing Outcome: Ongoing, Progressing Intervention: Support Psychosocial Response Flowsheets (Taken 10/18/2024 0302) Supportive Measures: active listening utilized Family/Support System Care: self-care encouraged support provided * Consults - Nya Long MD - 10/17/2024 10:31 PM EDTAssociated Order(s): Inpatient consult to Hospital Medicine Hospital Medicine Consult History & Physical 10/17/24 Inpatient consult to Hospital Medicine Consult performed by: Nya Long MD Consult ordered by: Hilton Montelongo MD History: Reason for consult: Electrolyte derangements with EKG changes History of Present Illness: 34 year-old female with PMH -related hyperaldosteronism currently admitted to the obstetric unit for severe electrolyte abnormalities. She presented to the hospital for chest pain and dyspnea which she states has been present constantly for the past 2 weeks. She first began having these symptoms at the end of her second trimester when electrolytes were found to be low and began requiring more aggressive potassium and magnesium replacement. At that time the chest pain and dyspnea were occurring daily but with symptom-free periods as well. She currently takes daily PO [id number] and PO magnesium 1600mg in addition to the IV replacement she receives every other day. Electrolyte disturbances have been an issue in prior pregnancies but patient reports this time is much worse. She began requiring aggressive replacement earlier in this than she had in prior pregnancies and cardiac symptoms have also been more prominent. She notes difficulty maintaining appropriate caloric intake over this due to the chest discomfort and as a result has been losing weight over the course of the . Since admission patient has been hemodynamically stable. Labs notable for severe hypokalemia and hypomagnesemia. Chest pain and generalized weakness have continued. No issues voiding. Does note that she has not had a bowel movement in over 1 week. Patient was recently seen by Dr. Block with cardiology for evaluation of tachycardia and syncope. At that time syncopal episodes were thought to be vasovagal in origin given prodromal symptoms. Initiation of metoprolol was discussed but patient preferred to hold off until further evaluation with a heart monitor. PMHx: GERD, depression PSHx: , D and C Home Medications: Current Outpatient Medications Medication Instructions FeroSul 325 (65 Fe) MG tablet 1 tablet, Daily metoprolol succinate XL (TOPROL XL) 12.5 mg, Oral, 2 times daily, Do not crush or chew. omeprazole (PRILOSEC) 20 mg, ZZ Daily RT ondansetron ODT (Zofran-ODT) 4 MG disintegrating tablet DISSOLVE 1 TABLET IN MOUTH EVERY 8 HOURS ASNEEDED FOR NAUSEA AND VOMITING FOR 4 DAYS pantoprazole (Protonix) 40 MG EC tablet potassium chloride (Klor-Con) 20 MEQ packet Take twice a day for 3 days each week. Weekly labs potassium chloride CR 10 MEQ PO ER tablet 10 mEq, 2 times daily Prenat MV-Min w/[id number] ( COMPLETE PO) thiamine (VITAMIN B-1) 100 mg, ZZ Daily RT Allergies: Allergies[1] Vitals and Physical Exam: Temp: [36.4 ??C (97.5 ??F)-36.8 ??C (98.2 ??F)] 36.8 ??C (98.2 ??F) Heart Rate: [94] 94 Resp: [16-17] 17 BP: (94)/(69) 94/69 Physical Exam Constitutional: General: She is not in acute distress. Appearance: She is not ill-appearing, toxic-appearing or diaphoretic. HENT: Head: Normocephalic and atraumatic. Nose: Nose normal. Eyes: General: No scleral icterus. Cardiovascular: Rate and Rhythm: Normal rate and regular rhythm. Heart sounds: Normal heart sounds. Pulmonary: Effort: Pulmonary effort is normal. No respiratory distress. Breath sounds: Normal breath sounds. No wheezing or rales. Musculoskeletal: Right lower leg: No edema. Left lower leg: No edema. Skin: General: Skin is warm and dry. Coloration: Skin is not jaundiced or pale. Findings: No rash. Neurological: Mental Status: She is alert. Psychiatric: Mood and Affect: Mood normal. Behavior: Behavior normal. Thought Content: Thought content normal. Labs and Imaging: Labs notable for K 2.5, Mg 1.1 Assessment and Recommendations: 34 year-old female with PMH -related hyperaldosteronism currently admitted to the obstetric unit for severe electrolyte abnormalities and EKG changes. # Hyperaldosteronism Unclear if patient has had evaluation for adrenal adenoma in the past but patient does report previous renin/julita testing. EKG changes are most likely related to underlying electrolyte disturbances. Options for treatment are limited due to . Typical agents such as spironolactone, eplerenone, and potassium sparing diuretics are not recommended in ; therefore the safest option is to monitor and replace electrolytes aggressively. Recommendations: - Q4 hour potassium and magnesium checks until stabilized - magnesium oxide 400mg BID, potassium chloride 40mEq TID with additional IV replacement as indicated by labs - continue telemetry monitoring - rest of care per primary team Nya Long MD Internal Medicine PGY-2 Pager: [phone] [1] Allergies Allergen Reactions Bismuth Subsalicylate Other - please document in the comment field, Unknown - Patient states they do not know rxn details and Swelling na Tobacco Other - please document in the comment field and Shortness of breath SOB when exposed to smoke, contact dermatitis with skin contact Peanuts [Peanut Allergen Powder-Dnfp] Hives Cosigned by Leatha Gustafson DO at 10/18/2024 2:46 AM EDT Associated attestation - Leatha Gustafson DO - 10/18/2024 2:46 AM EDT I saw and evaluated the patient. I discussed the case with the resident/fellow and agree with the findings and plan as documented. * Significant Event - Chinyere Nieto MD - 10/17/2024 10:00 PM EDT To bedside after patient called out with increased chest pain and shortness of air with flushing. She endorses worsening chest pressure and feeling short of breath from her baseline symptoms on admission. She has additionally developed increasingly painful contractions. Earlier cardiorespiratory workup largely normal with the exception of elevated D-dimer. Troponins negative, BNP wnl, CXR unremarkable. Placed on telemetry due to electrolyte derangements. On exam, short shallow breathing with tachypnea. On O2 for comfort. Patient agitated and in distress. Visibly flushed and diaphoretic. Lungs clear to auscultation, heart rate regular. Vitals overall normal, though has had times of hypoxia to 91% on chart review since admission. Telemetry showing arrhythmias with bigeminy and PVCs. Potassium and magnesium infusions paused. STAT repeat labs drawn demonstrating respiratory alkalosis in the setting of hyperventilation. Magnesium normalized. Potassium remains critically low at 2.5.Hospital medicine updated about patient's change in status. Cardiology called due to patient's history of tachycardia and arrhythmias with symptomatic telemetry changes in the setting of her electrolyte derangements and will come to bedside to assess. Potassium repletion restarted. Will consider CTPE given periodically low O2 saturations and elevated d-Dimer. Suspect component of anxiety contributing to hyperventilation and respiratory alkalosis. documented in this encounter Plan of Treatment Upcoming Encounters Date Type Department Care Team (Late st Contact Info) Description 10/24/2024 8:00 AM EDT Office Visit [facility] [place] [address], [address] [place] [address] Nneka Block MD [address] [place] [id number] 10/24/2024 9:45 AM EDT Routine Medical Office Building Obstetrics and Gynecology [address], [address] [place] [address] Nneka Gipson MD [address] [place] [address] 12/25/2024 1:00 PM EST Office Visit [facility] [address], [address] [place] [address] Pending Results Name Type Priority Associated Diagnoses Date/Time ECG Adult ECG STAT 10/17/2024 4:1 7 PM EDT SARS CoV-2/COVID-19 by PCR Microbiology STAT 10/17/2024 8:50 PM EDT ECG Adult ECG STAT 10/17/2024 10: 50 PM EDT Bile acids, total Lab STAT 025 1:12 AM EDT Echo, Adult Transthoracic Complete Echocardiography Routine 10/19/19 9:52 AM EDT ECG Adult ECG STAT 10/18/2024 8:5 4 AM EDT Extra Tubes Lab Routine 10/18/2024 9: 14 AM EDT Light Green Top Lab Routine 9:14 AM EDT Scheduled Orders Name Type Priority Associated Diagnoses Order Schedule SARS CoV-2/COVID-19 by PCR Microbiology STAT STAT (Lab) for 1 Occurrences starting 10/17/2024 until 10/17/2024 Bile acids, total Lab STAT Add-on STAT ( Lab) for 1 Occurrences starting 10/17/2024 until 10/17/2024 Basic metabolic panel Lab Timed Adia ry 4 hours (Lab) for 3 Days starting 10/18/2024 until 10/20/2024, 2 completed Magnesium Lab Timed Every 4 hours (Lab) for 3 Days starting 10/18/2024 until 10/20/2024, 2 completed Phosphorus, Plasma Lab Timed Every 4 hours (Lab) for 3 Days starting 10/18/2024 until 10/20/2024, 2 completed Echo, Adult Transthoracic Complete Echocardiography Routine Once for 1 Occurrences starting 10/18/2024 until 10/18/2024 Extra Tubes Lab Routine Once (Lab) fo r 1 Occurrences starting 10/18/2024 until 10/18/2024 Light Green Top Lab Timed Once for 1 Occurrences starting 10/18/2024 until 10/18/2024 documented as of this encounter Procedures * The patient is currently admitted. The information in this section might not be complete until the patient is discharged. Procedure Name Priority Date/Time Associated Diagnosis Comments POCT GLUCOSE METER UNSOLICITED RESULTS Routine 10/18/2024 9:42 AM EDT PHOSPHORUS, PLASMA Timed 10/18/2024 9: 14 AM EDT MAGNESIUM, PLASMA Timed 10/18/2024 9:1 4 AM EDT BASIC METABOLIC PANEL, PLASMA Timed 10/18/2024 9:14 AM EDT ECG ADULT STAT 10/18/2024 8:54 AM EDT OB US BIOPHYSICAL PROFILE WO NON STRESS TESTING Routine 10/18/2024 8:50 AM EDT PROTEIN, URINE, RANDOM WITH CREATININE Routine 10/18/2024 4:03 AM EDT IONIZED CALCIUM, WHOLE BLOOD STAT Add-on 10/18/2024 3:38 AM EDT PHOSPHORUS, PLASMA Timed 10/18/2024 3: 38 AM EDT MAGNESIUM, PLASMA Timed 10/18/2024 3:3 8 AM EDT BLOOD GAS PANEL, VENOUS Routine 10/18/2024 3:38 AM EDT BASIC METABOLIC PANEL, PLASMA Timed 10/18/2024 3:38 AM EDT TROPONIN T, HIGH SENSITIVITY, 2 HOUR, PLASMA Timed 10/18/2024 1:12 AM EDT GROUP A STREPTOCOCCUS BY PCR Routine 10/17/2024 11:25 PM EDT ECG ADULT STAT 10/17/2024 10:50 PM EDT TROPONIN T, HIGH SENSITIVITY, 0 HOUR, PLASMA, REFLEX TO 2 HOUR STAT 10/17/2024 10:41 PM EDT CBC W/O DIFFERENTIAL STAT 10/17/2024 10:41 PM EDT MAGNESIUM, PLASMA STAT Add-on 10/17/2024 10: 41 PM EDT BLOOD GAS PANEL, VENOUS STAT 10/17/2024 10:41 PM EDT COMPREHENSIVE METABOLIC PANEL, PLASMA STAT 10/17/2024 10:41 PM EDT NASOPHARYNGEAL RESPIRATORY PANEL STAT 10/17/2024 8:50 PM EDT TREPONEMA PALLIDUM (SYPHILIS) ANTIBODIES WITH REFLEX TO RPR AND RPR TITER (THOSE WITH NO KNOWN SYPHILIS) Routine 10/17/2024 7:31 PM EDT TYPE AND SCREEN STAT 10/17/2024 7:31 PM EDT TROPONIN T, HIGH SENSITIVITY, 2 HOUR, PLASMA Timed 10/17/2024 6:18 PM EDT XR CHEST 1 VIEW STAT 10/17/2024 4:38 PM EDT ECG ADULT STAT 10/17/2024 4:17 PM EDT TROPONIN T, HIGH SENSITIVITY, 0 HOUR, PLASMA, REFLEX TO 2 HOUR STAT 10/17/2024 4:05 PM EDT D DIMER, QUANTITATIVE STAT 10/17/2024 4:05 PM EDT N-TERMINAL PROBNP, PLASMA STAT 10/17/2024 4:05 PM EDT CBC WITH AUTO DIFFERENTIAL STAT 10/17/2024 4:05 PM EDT URIC ACID, PLASMA Add-On 10/17/2024 4:0 5 PM EDT PHOSPHORUS, PLASMA STAT 10/17/2024 4: 05 PM EDT MAGNESIUM, PLASMA STAT 10/17/2024 4:0 5 PM EDT LACTATE DEHYDROGENASE, PLASMA Add-On 10/17/2024 4:05 PM EDT COMPREHENSIVE METABOLIC PANEL, PLASMA STAT 10/17/2024 4:05 PM EDT documented in this encounter Results * POCT glucose meter (10/18/2024 9:42 AM EDT) [facility] POCT Glucose 78 74 - 99 mg/dL 10/18/2024 9:52 AM EDT [facility] Comment:Accuracy of a glucos e result obtained from a capillary whole blood specimen relies upon adequate, non-compromised capillary blood flow. If the capillary glucose result is not consistent with the patient's clinical signs and symptoms, glucose testing should be repeated with either an arterial or venous sample on the glucometer or sent to the main labortory for testing. Comment 10/18/2024 9:52 AM EDT [facility] Furniture Mover Driver ID Tex Harman 025 9:52 AM EDT [facility]ALTH[facility]ARE [facility] Device ID [id number] 10/18/2024 9:52 AM EDT [facility] Specimen Type POC Capillary 10/18/2024 9:52 AM EDT [facility] Blood Capillary blood specimen / Unknown 10/18/2024 9:42 AM EDT 10/18/2024 9:52 AM EDT us Hilton Montelongo MD LAB POINT OF CARE TE ST DOCKED DEVICE UNSOLICITED RESULTS Final Result Performing Organization Address [facility] Co de Phone Number [facility] [address] [place] [address] * Phosphorus, Plasma (10/18/2024 9:14 AM EDT) [facility] Phosphorus, Plasma 3.2 2.5 - 4.5 mg/dL 10/18/2024 10:29 AM EDT [facility] Blood Venous blood specimen / Unknown Venipuncture / Unknown 10/18/2024 9:14 AM EDT 10/18/2024 9:36 AM EDT us Hilton Montelongo MD LAB BLOOD ORDERABLES Final Re sult Performing Organization Address City/[facility]/ZIP Co de Phone Number [facility] [address] [place] [address] * (ABNORMAL) Magnesium (10/18/2024 9:14 AM EDT) Magnesium, Plasma 1.8(L) 1.9 - 2.4 mg/dL 10/18/2024 10:29 AM EDT [facility] Blood Venous blood specimen / Unknown Venipuncture / Unknown 10/18/2024 9:14 AM EDT 10/18/2024 9:36 AM EDT us Hilton Montelongo MD LAB BLOOD ORDERABLES Final Re sult [facility] [address] [place] [address] * (ABNORMAL) Basic metabolic panel (10/18/2024 9:14 AM EDT) Glucose, Plasma 76 74 - 99 mg/dL 10/18/2024 10:29 AM EDT [facility] BUN, Plasma 9 7 - 21 mg/dL 10/18/2024 10:29 AM EDT [facility] Creatinine, Plasma 0.66 0.60 - 1.10 mg/dL 10/18/2024 10:29 AM EDT [facility] BUN/Creatinine Ratio 14 10/18/2024 10:29 AM EDT [facility] Sodium, Plasma 134(L) 136 - 145 mmol/L 10/18/2024 10:29 AM EDT [facility] Potassium, Plasma 3.2(L) 3.6 - 4.9 mmol/L 10/18/2024 10:29 AM EDT [facility] Chloride, Plasma 94(L) 97 - 107 mmol/L 10/18/2024 10:29 AM EDT [facility] CO2, Plasma 27 22 - 29 mmol/L 10/18/2024 10:29 AM EDT [facility] Anion Gap 13 6 - 16 mmol/L 10/18/2024 10:29 AM EDT [facility] Total Calcium, Plasma 8.2(L) 8.9 - 10.2 mg/dL 10/18/2024 10:29 AM EDT [facility] eGFRcr 119.0 mL/min/1.7 3m*2 10/18/2024 10:29 AM EDT [facility] Comment:Reported eGFRcr in m L/min/1.73m2 is based the CKD-EPI 2020 equation that does not use a race coefficient. Blood Venous blood specimen / Unknown Venipuncture / Unknown 10/18/2024 9:14 AM EDT 10/18/2024 9:36 AM EDT Result [facility] us Hilton Montelongo MD LAB BLOOD ORDERABLES Final Re sult [facility] [address] [place] [address] * OB US Biophysical Profile wo Non Stress Testing (10/18/2024 8:50 AM EDT) Anatomical Region Laterality Modality Body Ultrasound 10/18/2024 8:28 AM EDT Impressions 10/18/2024 9:40 AM EDT The OB Ultrasound you requested has been resulted. Please navigate to the Imaging tab in [employer] for review. This message has been generated by the interface. Narrative Procedure Note Nneka Gipson MD - 10/18/2024 IMPRESSION: The OB Ultrasound you requested has been resulted. Please navigate to theImaging tab in [employer] for review. This message has been generated by theinterface. Hilton Montelongo MD IMG OB US PROCEDURES Final Re sult * Protein, Random, Urine with Creatinine (10/18/2024 4:03 AM EDT) Protein, Urine 10 mg/dL 10/18/2024 4:44 AM EDT [facility] Creatinine, Urine 62 mg/dL 10/18/2024 4:44 AM EDT [facility] Protein/Creatin ine Ratio 0.2 mg/mg Creat 10/18/2024 4:44 AM EDT [facility] Urine Urine specimen obtained by clean catch procedure / Unknown Non-blood Collection / Unknown 10/18/2024 4:03 AM EDT 10/18/2024 4:11 AM EDT us Hilton Montelongo MD LAB URINE ORDERABLES Final Re sult Performing Organization Address [facility]/ZIP Co de Phone Number [facility] [address] [place] [address] * (ABNORMAL) Ionized calcium, whole blood (10/18/2024 3:38 AM EDT) [facility] Ionized Calcium, Whole Blood 4.3(L) 4.6 - 5.1 mg/dL LAB HEMATOLOGY METHOD 10/18/2024 5:42 AM EDT [facility] Blood Venous blood specimen / Unknown Venipuncture / Unknown 10/18/2024 3:38 AM EDT 10/18/2024 3:48 AM EDT us Hilton Montelongo MD LAB BLOOD ORDERABLES Final Re sult Performing Organization Address [facility] Co de Phone Number [facility] [address] [place] [address] * (ABNORMAL) Blood gas panel, venous (10/18/2024 3:38 AM EDT) Pathologist [facility] pH, Venous 7.47(H) 7.32 - 7.43 LAB HEMATOLOGY METHOD 10/18/2024 3:50 AM EDT [facility] pCO2, Venous 44 37 - 52 mmHg LAB HEMATOLOGY METHOD 10/18/2024 3:50 AM EDT [facility] pO2, Venous 115(H) 25 - 40 mmHg LAB HEMATOLOGY METHOD 10/18/2024 3:50 AM EDT [facility] SO2, Measured, Venous 100(H) 65 - 80 % LAB HEMATOLOGY METHOD 10/18/2024 3:50 AM EDT [facility] Base Excess, Venous 7.1(H) -2.0 - 3.0 mmol/L LAB HEMATOLOGY METHOD 10/18/2024 3:50 AM EDT [facility] Bicarbonate, Calculated, Venous 32(H) 22 - 26 mmol/L LAB HEMATOLOGY METHOD 10/18/2024 3:50 AM EDT [facility] Hematocrit, Whole Blood 27.5(L) 34.0 - 45.0 % LAB HEMATOLOGY METHOD 10/18/2024 3:50 AM EDT [facility] Sodium, Whole Blood 133(L) 136 - 145 mmol/L LAB HEMATOLOGY METHOD 10/18/2024 3:50 AM EDT [facility] Potassium, Whole Blood 2.8(L) 3.6 - 4.9 mmol/L LAB HEMATOLOGY METHOD 10/18/2024 3:50 AM EDT [facility] Chloride, Whole Blood 91(L) 97 - 107 mmol/L LAB HEMATOLOGY METHOD 10/18/2024 3:50 AM EDT [facility] Glucose, Whole Blood 72(L) 74 - 99 mg/dL LAB HEMATOLOGY METHOD 10/18/2024 3:50 AM EDT [facility] Lactate, Venous, Whole Blood 0.7 0.5 - 2.2 mmol/L LAB HEMATOLOGY METHOD 10/18/2024 3:50 AM EDT [facility] Ionized Calcium, Whole Blood 4.3(L) 4.6 - 5.1 mg/dL LAB HEMATOLOGY METHOD 10/18/2024 3:50 AM EDT [facility] Blood Venous blood specimen / Unknown Venipuncture / Unknown 10/18/2024 3:38 AM EDT 10/18/2024 3:48 AM EDT us Hilton Montelongo MD LAB BLOOD ORDERABLES Final Re sult [facility] [address] [place] [address] * Phosphorus, Plasma (10/18/2024 3:38 AM EDT) Phosphorus, Plasma 3.4 2.5 - 4.5 mg/dL 10/18/2024 4:17 AM EDT [facility] Blood Venous blood specimen / Unknown Venipuncture / Unknown 10/18/2024 3:38 AM EDT 10/18/2024 3:49 AM EDT us Hilton Montelongo MD LAB BLOOD ORDERABLES Final Re sult Performing Organization Address City/[facility]/ZIP Co de Phone Number [facility] [address] [place] [address] * Magnesium (10/18/2024 3:38 AM EDT) Magnesium, Plasma 2.1 1.9 - 2.4 mg/dL 10/18/2024 4:17 AM EDT [facility] Blood Venous blood specimen / Unknown Venipuncture / Unknown 10/18/2024 3:38 AM EDT 10/18/2024 3:49 AM EDT us Hilton Montelongo MD LAB BLOOD ORDERABLES Final Re sult Performing Organization Address [facility]/ZIP Co de Phone Number [facility] [address] [place] [address] * (ABNORMAL) Basic metabolic panel (10/18/2024 3:38 AM EDT) Glucose, Plasma 73(L) 74 - 99 mg/dL 10/18/2024 4:17 AM EDT [facility] BUN, Plasma 8 7 - 21 mg/dL 10/18/2024 4:17 AM EDT [facility] Creatinine, Plasma 0.66 0.60 - 1.10 mg/dL 10/18/2024 4:17 AM EDT [facility] BUN/Creatinine Ratio 12 10/18/2024 4:17 AM EDT [facility] Sodium, Plasma 133(L) 136 - 145 mmol/L 10/18/2024 4:17 AM EDT [facility] Potassium, Plasma 3.1(L) 3.6 - 4.9 mmol/L 10/18/2024 4:17 AM EDT [facility] Chloride, Plasma 92(L) 97 - 107 mmol/L 10/18/2024 4:17 AM EDT [facility] CO2, Plasma 27 22 - 29 mmol/L 10/18/2024 4:17 AM EDT [facility] Anion Gap 14 6 - 16 mmol/L 10/18/2024 4:17 AM EDT [facility] Total Calcium, Plasma 8.0(L) 8.9 - 10.2 mg/dL 10/18/2024 4:17 AM EDT [facility] eGFRcr 119.0 mL/min/1.7 3m*2 10/18/2024 4:17 AM EDT [facility] Comment:Reported eGFRcr in m L/min/1.73m2 is based the CKD-EPI 2020 equation that does not use a race coefficient. Blood Venous blood specimen / Unknown Venipuncture / Unknown 10/18/2024 3:38 AM EDT 10/18/2024 3:49 AM EDT us Hilton Montelongo MD LAB BLOOD ORDERABLES Final Re sult Performing Organization Address [facility] Co de Phone Number [facility] [address] [place] [address] * Troponin T, High Sensitivity, 2 Hour, Plasma (10/18/2024 1:12 AM EDT) Troponin T, High Sensitivity, 2 Hour <6 <14 ng/L 10/18/2024 1:46 AM EDT [facility] Blood Venous blood specimen / Unknown Venipuncture / Unknown 10/18/2024 1:12 AM EDT 10/18/2024 1:18 AM EDT Result Jaden Montelongo MD LAB BLOOD ORDERABLES Final Re sult Performing Organization Address [facility] Co de Phone Number [facility] [address] [place] [address] * Group A Streptococcus by PCR (10/17/2024 11:25 PM EDT) Group A Streptococcus PCR Result Not Detected Not Detected 10/18/2024 12:38 AM EDT [facility] Swab Structure of peritonsillar tissue / Unknown Non-blood Collection / Unknown 10/17/2024 11:25 PM EDT 10/17/2024 11:49 PM EDT Result Jaden Montelongo MD LAB MICROBIOLOGY - GENERAL OR DERABLES Final Result [facility] [address] [place] [address] * Magnesium (10/17/2024 10:41 PM EDT) Pathologist [facility] Magnesium, Plasma 2.2 1.9 - 2.4 mg/dL 10/17/2024 11:16 PM EDT [facility] Blood Venous blood specimen / Unknown Venipuncture / Unknown 10/17/2024 10:41 PM EDT 10/17/2024 10:45 PM EDT us Hilton Montelongo MD LAB BLOOD ORDERABLES Final Re sult Performing Organization Address [facility]/ZIP Co de Phone Number [facility] [address] [place] [address] * Troponin T, High Sensitivity, 0 Hour Plasma, Reflex to 2 Hour (10/17/2024 10:41 PM EDT) [facility] Troponin T, High Sensitivity, 0 Hour <6 <14 ng/L 10/17/2024 11:16 PM EDT [facility] Blood Venous blood specimen / Unknown Venipuncture / Unknown 10/17/2024 10:41 PM EDT 10/17/2024 10:45 PM EDT us Hilton Montelongo MD LAB BLOOD ORDERABLES Final Re sult Performing Organization Address [facility]/ZIP Co de Phone Number [facility] [address] [place] [address] * (ABNORMAL) Blood gas panel, venous (10/17/2024 10:41 PM EDT) Pathologist [facility] pH, Venous 7.62(HH) 7.32 - 7.43 LAB HEMATOLOGY METHOD 10/17/2024 10:47 PM EDT [facility] pCO2, Venous 31(L) 37 - 52 mmHg LAB HEMATOLOGY METHOD 10/17/2024 10:47 PM EDT [facility] pO2, Venous 185(H) 25 - 40 mmHg LAB HEMATOLOGY METHOD 10/17/2024 10:47 PM EDT [facility] SO2, Measured, Venous 100(H) 65 - 80 % LAB HEMATOLOGY METHOD 10/17/2024 10:47 PM EDT [facility] Base Excess, Venous 10.6(H) -2.0 - 3.0 mmol/L LAB HEMATOLOGY METHOD 10/17/2024 10:47 PM EDT [facility] Bicarbonate, Calculated, Venous 32(H) 22 - 26 mmol/L LAB HEMATOLOGY METHOD 10/17/2024 10:47 PM EDT [facility] Hematocrit, Whole Blood 29.4(L) 34.0 - 45.0 % LAB HEMATOLOGY METHOD 10/17/2024 10:47 PM EDT [facility] Sodium, Whole Blood 132(L) 136 - 145 mmol/L LAB HEMATOLOGY METHOD 10/17/2024 10:47 PM EDT [facility] Potassium, Whole Blood 2.3(LL) 3.6 - 4.9 mmol/L LAB HEMATOLOGY METHOD 10/17/2024 10:47 PM EDT [facility] Chloride, Whole Blood 87(L) 97 - 107 mmol/L LAB HEMATOLOGY METHOD 10/17/2024 10:47 PM EDT [facility] Glucose, Whole Blood 76 74 - 99 mg/dL LAB HEMATOLOGY METHOD 10/17/2024 10:47 PM EDT [facility] Lactate, Venous, Whole Blood 1.1 0.5 - 2.2 mmol/L LAB HEMATOLOGY METHOD 10/17/2024 10:47 PM EDT [facility] Ionized Calcium, Whole Blood 4.2(L) 4.6 - 5.1 mg/dL LAB HEMATOLOGY METHOD 10/17/2024 10:47 PM EDT [facility] Blood Venous blood specimen / Unknown Venipuncture / Unknown 10/17/2024 10:41 PM EDT 10/17/2024 10:45 PM EDT us Hilton Montelongo MD LAB BLOOD ORDERABLES Final Re sult [facility] [address] [place] [address] * (ABNORMAL) Comprehensive metabolic panel (10/17/2024 10:41 PM EDT) Glucose, Plasma 77 74 - 99 mg/dL 10/17/2024 11:16 PM EDT [facility] BUN, Plasma 9 7 - 21 mg/dL 10/17/2024 11:16 PM EDT [facility] Creatinine, Plasma 0.70 0.60 - 1.10 mg/dL 10/17/2024 11:16 PM EDT [facility] BUN/Creatinine Ratio 13 10/17/2024 11:16 PM EDT [facility] Sodium, Plasma 132(L) 136 - 145 mmol/L 10/17/2024 11:16 PM EDT [facility] Potassium, Plasma 2.5(LL) 3.6 - 4.9 mmol/L 10/17/2024 11:16 PM EDT [facility] Chloride, Plasma 88(L) 97 - 107 mmol/L 10/17/2024 11:16 PM EDT [facility] CO2, Plasma 27 22 - 29 mmol/L 10/17/2024 11:16 PM EDT [facility] Anion Gap 17(H) 6 - 16 mmol/L 10/17/2024 11:16 PM EDT [facility] Total Calcium, Plasma 8.4(L) 8.9 - 10.2 mg/dL 10/17/2024 11:16 PM EDT [facility] Total Protein 5.8(L) 6.3 - 7.9 g/dL 10/17/2024 11:16 PM EDT [facility] Albumin, Plasma 3.0(L) 3.5 - 5.2 g/dL 10/17/2024 11:16 PM EDT [facility] AST, Plasma 69(H) 10 - 35 U/L 10/17/2024 11:16 PM EDT [facility] ALT, Plasma 76(H) 10 - 35 U/L 10/17/2024 11:16 PM EDT [facility] Alkaline Phosphatase, Plasma 76 35 - 104 U/L 10/17/2024 11:16 PM EDT [facility] Total Bilirubin, Plasma 0.7 0.2 - 1.1 mg/dL 10/17/2024 11:16 PM EDT [facility] eGFRcr 117.3 mL/min/1.7 3m*2 10/17/2024 11:16 PM EDT [facility] Comment:Reported eGFRcr in m L/min/1.73m2 is based the CKD-EPI 2020 equation that does not use a race coefficient. Blood Venous blood specimen / Unknown Venipuncture / Unknown 10/17/2024 10:41 PM EDT 10/17/2024 10:45 PM EDT us Hilton Montelongo MD LAB BLOOD ORDERABLES Final Re sult [facility] [address] [place] [address] * (ABNORMAL) CBC (10/17/2024 10:41 PM EDT) WBC Count 10.63(H) 3.70 - 10.30 10*3/uL LAB HEMATOLOGY METHOD 10/17/2024 10:53 PM EDT [facility] RBC Count 3.27(L) 3.90 - 5.20 10*6/uL LAB HEMATOLOGY METHOD 10/17/2024 10:53 PM EDT [facility] HGB 9.7(L) 11.2 - 15.7 g/dL LAB HEMATOLOGY METHOD 10/17/2024 10:53 PM EDT [facility] HCT 28.7(L) 34.0 - 45.0 % LAB HEMATOLOGY METHOD 10/17/2024 10:53 PM EDT [facility] Platelet Count 185 155 - 369 10*3/uL LAB HEMATOLOGY METHOD 10/17/2024 10:53 PM EDT [facility] MCV 88 79 - 98 fL LAB HEMATOLOGY METHOD 10/17/2024 10:53 PM EDT [facility] MCH 29.7 26.0 - 32.0 pg LAB HEMATOLOGY METHOD 10/17/2024 10:53 PM EDT [facility] MCHC 33.8 30.7 - 35.5 g/dL LAB HEMATOLOGY METHOD 10/17/2024 10:53 PM EDT [facility] RDW 15.8(H) 11.5 - 14.5 % LAB HEMATOLOGY METHOD 10/17/2024 10:53 PM EDT [facility] MPV 12.3 8.8 - 12.5 fL LAB HEMATOLOGY METHOD 10/17/2024 10:53 PM EDT [facility] nRBC 0.0 <=0.0 per 100 WBCs LAB HEMATOLOGY METHOD 10/17/2024 10:53 PM EDT [facility] Blood Venous blood specimen / Unknown Venipuncture / Unknown 10/17/2024 10:41 PM EDT 10/17/2024 10:45 PM EDT us Hilton Montelongo MD LAB BLOOD ORDERABLES Final Re sult [facility] [address] [place] [address] * Nasopharyngeal Respiratory Panel (10/17/2024 8:50 PM EDT) Nasopharyngeal Respiratory PCR Interpretation Not Detected for all analytes Not Detected for all analytes 10/17/2024 11:23 PM EDT [facility] Swab Nasopharyngeal structure / Unknown Non-blood Collection / Unknown 10/17/2024 8:50 PM EDT 10/17/2024 9:28 PM EDT Narrative [facility] - 10/17/2024 11:23 PM EDT This assay can detect Adenovirus, Coronavirus, Human Metapneumovirus, Human Rhino/Enterovirus, Influenza A, Influenza A H1, Influenza A H1 2009, Influenza A H3, Influenza B, Parainfluenza Virus 1, Parainfluenza Virus 2, Parainfluenza Virus 3, Parainfluenza Virus 4, Respiratory Syncytial Virus A, Respiratory Syncytial Virus B, Chlamydia pneumoniae, and Mycoplasma pneumoniae. Note: This assay does NOT detect SARS/CoV, novel Coronavirus 2019-nCoV, Bordetella pertussis or Bordetella parapertussis. Nasopharyngeal Respiratory PCR Panel is performed using the [employer] instrument. This test is FDA approved for use with Nasopharyngeal swabs only. This test is used for clinical purposes. It should not be regarded as investigational or for research. The [facility] Clinical Microbiology Laboratory is certified under the Clinical Laboratory Improvement Amendments of 1988 (CLIA-88) as qualified to perform high complexity clinical laboratory testing. us Hilton Montelongo MD LAB MICROBIOLOGY - GENERAL OR DERABLES Final Result [facility] [address] [place] [address] * Treponema Pallidum (Syphilis) Antibodies with Reflex to RPR and RPR Titer (Those with NO known Syphilis) (10/17/2024 7:31 PM EDT) [facility] Syphilis Antibody (IgG+IgM) Nonreactive Nonreactive 10/17/2024 10:00 PM EDT [facility] Comment:Nonreactive. No sero logic evidence of syphilis. No follow-up necessary unless clinically indicated (e.g., early syphilis). Blood Venous blood specimen / Unknown Venipuncture / Unknown 10/17/2024 7:31 PM EDT 10/17/2024 7:44 PM EDT Hilton Montelongo MD LAB BLOOD ORDERABLES Final Re sult Performing Organization Address City/[facility]/ZIP Co de Phone Number [facility] [address] [place] [address] * Type and Screen (10/17/2024 7:31 PM EDT) [facility] ABO/Rh O Positive 10/17/2024 7:10 PM EDT BLOOD BANK Antibody Screen Negative 10/17/2024 7:10 PM EDT BLOOD BANK Specimen Expiration 10/20/2024 23:59 10/17/2024 7:10 PM EDT BLOOD BANK Blood Venous blood specimen / Unknown Venipuncture / Unknown 10/17/2024 7:31 PM EDT 10/17/2024 7:44 PM EDT Hilton Montelongo MD LAB BLOOD BANK TEST ORDERABLE S Final Result Performing Organization Address City/[facility] Co de Phone Number BLOOD BANK [address] [place] [address], [place] * Troponin T, High Sensitivity, 2 Hour, Plasma (10/17/2024 6:18 PM EDT) [facility] Troponin T, High Sensitivity, 2 Hour <6 <14 ng/L 10/17/2024 7:18 PM EDT [facility] Blood Venous blood specimen / Unknown Venipuncture / Unknown 10/17/2024 6:18 PM EDT 10/17/2024 6:46 PM EDT Job N Devine CONTENT DEVELOPMENT SPECIALIST, CNM LAB BLOOD ORDERABLES Final Result [facility] [address] [place] [address] * XR Chest 1 View (10/17/2024 4:38 PM EDT) Anatomical Region Laterality Modality Chest Digital Radiogra phy Impressions 10/17/2024 4:40 PM EDT No acute finding CRITICAL RESULT: No. COMMUNICATION: Per this written report. Drafted by Brandin Morales MD on 10/17/2024 4:39 PM Final report signed by Brandin Morales MD on 10/17/2024 4:40 PM Narrative 10/17/2024 4:40 PM EDT CLINICAL INDICATION: chest pain TECHNIQUE: XR CHEST 1 VIEW COMPARISON: 06/03/2009 FINDINGS: Lungs are clear. Right upper extremity PICC line tip in the region of the SVC. There is an azygos fissure is a normal variant. Calcified granuloma left lung base unchanged Heart and mediastinal contours are within normal limits. No pneumothorax. No pleural effusion. Bony structures are unremarkable. Procedure Note Brandin Morales MD - 10/17/2024 CLINICAL INDICATION: chest pain TECHNIQUE: XR CHEST 1 VIEW COMPARISON: 06/03/2009 FINDINGS: Lungs are clear. Right upper extremity PICC line tip in the region of theSVC. There is an azygos fissure is a normal variant. Calcified granulomaleft lung base unchanged Heart and mediastinal contours are within normallimits. No pneumothorax. No pleural effusion. Bony structures areunremarkable. IMPRESSION: No acute finding CRITICAL RESULT: No. COMMUNICATION: Per this written report. Drafted by Brandin Morales MD on 10/17/2024 4:39 PM Final report signed by Brandin Morales MD on 10/17/2024 4:40 PM Job Brandon Devine CONTENT DEVELOPMENT SPECIALIST, CNM IMG XR PROCEDURES Fi nal Result * (ABNORMAL) Uric acid (10/17/2024 4:05 PM EDT) Uric Acid, Plasma 10.1(H) 3.1 - 7.1 mg/dL 10/17/2024 9:51 PM EDT [facility] Blood Venous blood specimen / Unknown Venipuncture / Unknown 10/17/2024 4:05 PM EDT 10/17/2024 4:20 PM EDT Result [facility] Hilton Montelongo MD LAB BLOOD ORDERABLES Final Re sult Performing Organization Address City/[facility]/ZIP Co de Phone Number [facility] [address] [place] [address] * (ABNORMAL) Lactate dehydrogenase (10/17/2024 4:05 PM EDT) LDH, Plasma 267(H) 116 - 250 U/L 10/17/2024 9:51 PM EDT [facility] Comment:Hemolyzed, result ma y be falsely increased. Blood Venous blood specimen / Unknown Venipuncture / Unknown 10/17/2024 4:05 PM EDT 10/17/2024 4:20 PM EDT Result [facility] Hilton Montelongo MD LAB BLOOD ORDERABLES Final Re sult [facility] [address] [place] [address] * Phosphorus (10/17/2024 4:05 PM EDT) Phosphorus, Plasma 2.5 2.5 - 4.5 mg/dL 10/17/2024 5:07 PM EDT [facility] Blood Venous blood specimen / Unknown Venipuncture / Unknown 10/17/2024 4:05 PM EDT 10/17/2024 4:20 PM EDT Hilton Montelongo MD LAB BLOOD ORDERABLES Final Re sult Performing Organization Address [facility] Co de Phone Number [facility] [address] [place] [address] * (ABNORMAL) Magnesium (10/17/2024 4:05 PM EDT) Magnesium, Plasma 1.4(L) 1.9 - 2.4 mg/dL 10/17/2024 5:07 PM EDT [facility] Blood Venous blood specimen / Unknown Venipuncture / Unknown 10/17/2024 4:05 PM EDT 10/17/2024 4:20 PM EDT Hilton Montelongo MD LAB BLOOD ORDERABLES Final Re sult Performing Organization Address [facility]/ZIP Co de Phone Number [facility] [address] [place] [address] * N-Terminal Probnp (10/17/2024 4:05 PM EDT) N-Terminal, PROBNP, Plasma 125 0 - 449 pg/mL 10/17/2024 5:07 PM EDT [facility] Blood Venous blood specimen / Unknown Venipuncture / Unknown 10/17/2024 4:05 PM EDT 10/17/2024 4:20 PM EDT Job Devine CONTENT DEVELOPMENT SPECIALIST, CNM LAB BLOOD ORDERABLES Final Result Performing Organization Address [facility]/ZIP Co de Phone Number [facility] [address] [place] [address] * Troponin T, High Sensitivity, 0 Hour Plasma, Reflex to 2 Hour (10/17/2024 4:05 PM EDT) Troponin T, High Sensitivity, 0 Hour <6 <14 ng/L 10/17/2024 5:07 PM EDT [facility] Blood Venous blood specimen / Unknown Venipuncture / Unknown 10/17/2024 4:05 PM EDT 10/17/2024 4:20 PM EDT Job Devine APRN, CNM LAB BLOOD ORDERABLES Final Result Performing Organization Address [facility]/ZIP Co de Phone Number [facility] [address] [place] [address] * (ABNORMAL) D DIMER, QUANTITATIVE (10/17/2024 4:05 PM EDT) Pathologist [facility] D Dimer, Quantitative 2.33(H) <0.50 ug/mL FEU LAB COAGULATION METHOD 10/17/2024 4:47 PM EDT [facility] Blood Venous blood specimen / Unknown Venipuncture / Unknown 10/17/2024 4:05 PM EDT 10/17/2024 4:19 PM EDT Narrative [facility] - 10/17/2024 4:47 PM EDT Test performed by [facility] D-dimer assay. Values greater than 0.50 ug/mL FEU should be evaluated for risk stratification of patients with possible venous thromboembolism. In addition to expected elevations following injury or surgery, D-dimer levels increase in normal and increase steadily with normal aging. Values in healthy individuals often exceed the VTE exclusion cutoff value, and should be considered in the clinical context. Job Devine APRN, MARYANA LAB BLOOD ORDERABLES Final Result Performing Organization Address [facility] Co de Phone Number [facility] [address] [place] [address] * (ABNORMAL) Comprehensive metabolic panel (10/17/2024 4:05 PM EDT) Pathologist [facility] Glucose, Plasma 78 74 - 99 mg/dL 10/17/2024 5:07 PM EDT [facility] BUN, Plasma 9 7 - 21 mg/dL 10/17/2024 5:07 PM EDT [facility] Creatinine, Plasma 0.74 0.60 - 1.10 mg/dL 10/17/2024 5:07 PM EDT [facility] BUN/Creatinine Ratio 12 10/17/2024 5:07 PM EDT [facility] Sodium, Plasma 136 136 - 145 mmol/L 10/17/2024 5:07 PM EDT [facility] Potassium, Plasma 2.5(LL) 3.6 - 4.9 mmol/L 10/17/2024 5:07 PM EDT [facility] Chloride, Plasma 87(L) 97 - 107 mmol/L 10/17/2024 5:07 PM EDT [facility] CO2, Plasma 32(H) 22 - 29 mmol/L 10/17/2024 5:07 PM EDT [facility] Anion Gap 17(H) 6 - 16 mmol/L 10/17/2024 5:07 PM EDT [facility] Total Calcium, Plasma 9.0 8.9 - 10.2 mg/dL 10/17/2024 5:07 PM EDT [facility] Total Protein 6.5 6.3 - 7.9 g/dL 10/17/2024 5:07 PM EDT [facility] Albumin, Plasma 3.1(L) 3.5 - 5.2 g/dL 10/17/2024 5:07 PM EDT [facility] AST, Plasma 82(H) 10 - 35 U/L 10/17/2024 5:07 PM EDT [facility] ALT, Plasma 93(H) 10 - 35 U/L 10/17/2024 5:07 PM EDT [facility] Alkaline Phosphatase, Plasma 83 35 - 104 U/L 10/17/2024 5:07 PM EDT [facility] Total Bilirubin, Plasma 0.6 0.2 - 1.1 mg/dL 10/17/2024 5:07 PM EDT [facility] eGFRcr 109.7 mL/min/1.7 3m*2 10/17/2024 5:07 PM EDT [facility] Comment:Reported eGFRcr in m L/min/1.73m2 is based the CKD-EPI 2020 equation that does not use a race coefficient. Blood Venous blood specimen / Unknown Venipuncture / Unknown 10/17/2024 4:05 PM EDT 10/17/2024 4:20 PM EDT Job Devine CONTENT DEVELOPMENT SPECIALIST, CNM LAB BLOOD ORDERABLES Final Result [facility] [address] [place] [address] * (ABNORMAL) CBC and Differential (10/17/2024 4:05 PM EDT) WBC Count 9.54 3.70 - 10.30 10*3/uL LAB HEMATOLOGY METHOD 10/17/2024 4:41 PM EDT [facility] RBC Count 3.40(L) 3.90 - 5.20 10*6/uL LAB HEMATOLOGY METHOD 10/17/2024 4:41 PM EDT [facility] HGB 10.2(L) 11.2 - 15.7 g/dL LAB HEMATOLOGY METHOD 10/17/2024 4:41 PM EDT [facility] HCT 29.7(L) 34.0 - 45.0 % LAB HEMATOLOGY METHOD 10/17/2024 4:41 PM EDT [facility] Platelet Count 177 155 - 369 10*3/uL LAB HEMATOLOGY METHOD 10/17/2024 4:41 PM EDT [facility] MCV 87 79 - 98 fL LAB HEMATOLOGY METHOD 10/17/2024 4:41 PM EDT [facility] MCH 30.0 26.0 - 32.0 pg LAB HEMATOLOGY METHOD 10/17/2024 4:41 PM EDT [facility] MCHC 34.3 30.7 - 35.5 g/dL LAB HEMATOLOGY METHOD 10/17/2024 4:41 PM EDT [facility] RDW 15.9(H) 11.5 - 14.5 % LAB HEMATOLOGY METHOD 10/17/2024 4:41 PM EDT [facility] MPV 12.1 8.8 - 12.5 fL LAB HEMATOLOGY METHOD 10/17/2024 4:41 PM EDT [facility] nRBC 0.0 <=0.0 per 100 WBCs LAB HEMATOLOGY METHOD 10/17/2024 4:41 PM EDT [facility] Differential Type Automated LAB HEMATOLOGY METHOD 10/17/2024 4:41 PM EDT [facility] Neutrophils % 63 % LAB HEMATOLOGY METHOD 10/17/2024 4:41 PM EDT [facility] Lymphocytes % 24 % LAB HEMATOLOGY METHOD 10/17/2024 4:41 PM EDT [facility] Monocytes % 11 % LAB HEMATOLOGY METHOD 10/17/2024 4:41 PM EDT [facility] Eosinophils % 1 % LAB HEMATOLOGY METHOD 10/17/2024 4:41 PM EDT [facility] Basophils % 0 % LAB HEMATOLOGY METHOD 10/17/2024 4:41 PM EDT [facility] Immature Granulocytes % 1 % LAB HEMATOLOGY METHOD 10/17/2024 4:41 PM EDT [facility] Neutrophils Absolute 6.06 1.60 - 6.10 10*3/uL LAB HEMATOLOGY METHOD 10/17/2024 4:41 PM EDT [facility] Lymphocytes Absolute 2.31 1.20 - 3.90 10*3/uL LAB HEMATOLOGY METHOD 10/17/2024 4:41 PM EDT [facility] Monocytes Absolute 1.05(H) 0.30 - 0.90 10*3/uL LAB HEMATOLOGY METHOD 10/17/2024 4:41 PM EDT [facility] Eosinophils Absolute 0.06 0.00 - 0.50 10*3/uL LAB HEMATOLOGY METHOD 10/17/2024 4:41 PM EDT [facility] Basophils Absolute 0.01 0.00 - 0.10 10*3/uL LAB HEMATOLOGY METHOD 10/17/2024 4:41 PM EDT [facility] Immature Granulocytes Absolute 0.05 0.00 - 0.06 10*3/uL LAB HEMATOLOGY METHOD 10/17/2024 4:41 PM EDT [facility] Blood Venous blood specimen / Unknown Venipuncture / Unknown 10/17/2024 4:05 PM EDT 10/17/2024 4:24 PM EDT Narrative [facility] - 10/17/2024 4:41 PM EDT Therapeutic decision making should be based on absolute values, rather than percentages. Job Devine CONTENT DEVELOPMENT SPECIALIST, CNM LAB BLOOD ORDERABLES Final Result [facility] [address] [place] [address] documented in this encounter Visit Diagnoses Diagnosis Hypokalemia- Primary Hypopotassemia Electrolyte abnormality Electrolyte and fluid disorders not elsewhere classified documented in this encounter Admitting Diagnoses Diagnosis Hypokalemia Hypopotassemia Electrolyte abnormality Electrolyte and fluid disorders not elsewhere classified documented in this encounter Administered Medications Active Administered Medications - up to 3 most recent administrations Medication Order MAR Action Action Date Dose Rate Site acetaminophen (Tylenol) tablet 650 mg 650 mg, Oral, Every 4 hours PRN, Starting on Mon10/17/24 at 191, Until Discontinued, Routine, Pre-Delivery, mild pain Given 10/17/2024 8:59 PM EDT 650 mg azithromycin (Zithromax) 500 mg in sodium chloride 0.9% 250 mL IVPB (vial adapter required) 500 mg, Intravenous, Once in OR, 1 dose, Starting on Mon10/17/24 at 2040, Until Discontinued, Routine, Pre-Delivery calcium carbonate (Tums) chewable tablet 1,000 mg 1,000 mg, Oral, 4 times daily PRN, Starting on Mon10/17/24 at 191, Until Discontinued, Routine, Pre-Delivery, indigestion, heartburn ceFAZolin (Ancef) injection 2 g 2 g, Intravenous, Once in OR, 1 dose, Starting on Mon10/17/24 at 204, Until Discontinued, Routine, Pre-Delivery cyclobenzaprine (Flexeril) tablet 5 mg 5 mg, Oral, 3 times daily PRN, Starting on Mon10/17/24 at 2338, Until Discontinued, Routine, muscle spasms Given 10/18/2024 10:02 AM EDT 5 mg Given 10/17/2024 11:50 PM EDT 5 mg dextrose 5 % and lactated Ringer's infusion 75 mL/hr, Intravenous, Continuous, Starting on Mon10/18/24 at 1030, Until Discontinued, Routine New Bag 10/18/2024 10:25 AM EDT 75 mL/hr 75 mL/hr famotidine (Pepcid) tablet 20 mg 20 mg, Oral, 2 times daily PRN, Starting on Mon10/17/24 at 191, Until Discontinued, Routine, Pre-Delivery, indigestion, heartburn, or inj IV famotidine PF (Pepcid) injection 20 mg 20 mg, Intravenous, 2 times daily PRN, Starting on Mon10/17/24 at 1911, Until Discontinued, Routine, Pre-Delivery, indigestion, heartburn, or tablet po Given 10/18/2024 10:02 AM EDT 20 mg Given 10/17/2024 11:34 PM EDT 20 mg hydrOXYzine pamoate (Vistaril) capsule 25 mg 25 mg, Oral, Every 6 hours PRN, Starting on Mon10/17/24 at 2328, Until Discontinued, Routine, anxiety Given 10/18/2024 12:18 AM EDT 25 mg magnesium oxide (Mag-Ox) tablet 800 mg 800 mg, Oral, 2 times daily, First dose (after last modification) on Mon10/18/24 at 2100, Until Discontinued, Routine magnesium sulfate IVPB 4 g 4 g, Intravenous, Once, 1 dose, On Mon10/18/24 at 1145, Routine melatonin tablet 3 mg 3 mg, Oral, Nightly PRN, Starting on Mon10/17/24 at 2349, Until Discontinued, Routine, sleep multivitamin tablet 1 tablet 1 tablet, Oral, Daily, First dose on Mon10/17/24 at 2000, Until Discontinued, Routine, Pre-Delivery Given 10/18/2024 9:15 AM EDT 1 tablet mupirocin (Bactroban) 2 % ointment 1 Application Each Nostril, 2 times daily, 10 doses, First dose on Mon10/18/24 at 1030, Last dose on Mon10/22/24 at 2100, Routine Given 10/18/2024 10:02 AM EDT 1 Application ondansetron (Zofran) 4 MG/5ML solution 4 mg 4 mg, Oral, Every 6 hours PRN, Starting on Mon10/17/24 at 1911, Until Discontinued, Routine, Pre-Delivery, nausea, vomiting ondansetron (Zofran) injection 4 mg 4 mg, Intravenous, Every 6 hours PRN, Starting on Mon10/17/24 at 1911, Until Discontinued, Routine, Pre-Delivery, vomiting, nausea ondansetron ODT (Zofran-ODT) disintegrating tablet 4 mg 4 mg, Oral, Every 6 hours PRN, Starting on Mon10/17/24 at 1911, Until Discontinued, Routine, Pre-Delivery, nausea, vomiting potassium chloride CR (Klor-Con) ER tablet 40 mEq 40 mEq, Oral, 3 times daily, First dose on Mon10/17/24 at 2100, Until Discontinued, Routine Given 10/18/2024 9:15 AM EDT 40 mEq potassium chloride IVPB 10 mEq 10 mEq, Intravenous, Every 1 hour, 4 doses, First dose on Mon10/18/24 at 0700, Last dose on Mon10/18/24 at 1000, RoutineIndications:Hypokalemia New Bag 10/18/2024 10:36 AM EDT 10 mEq 100 mL/hr New Bag 10/18/2024 9:32 AM EDT 10 mEq 100 mL/hr prochlorperazine (Compazine) injection 5 mg 5 mg, Intravenous, Every 6 hours PRN, Starting on Mon10/17/24 at 2335, Until Discontinued, Routine, nausea, vomiting Given 10/18/2024 12:17 AM EDT 5 m g promethazine (Phenergan) tablet 12.5 mg 12.5 mg, Oral, Every 6 hours PRN, Starting on Mon10/17/24 at 2110, Until Discontinued, Routine, nausea, vomiting sodium chloride 0.9 % flush 3 mL 3 mL, Intravenous, As needed, Starting on Mon10/17/24 at 1909, Until Discontinued, Routine, Pre-Delivery, line care, 3 mL flush for PERIPHERAL IV CARE ONLY. sodium citrate-citric acid (Bicitra) 500-334 MG/5ML solution 30 mL 30 mL, Oral, Once in OR, 1 dose, Starting on Mon10/17/24 at 2040, Until Discontinued, Routine, Pre-Delivery terbutaline (Brethine) injection 0.25 mg 0.25 mg, Subcutaneous, Once as needed, 1 dose, Starting on Mon10/17/24 at 2040, Until Discontinued, Routine, Pre-Delivery, per MD ordersIndications:Tachysystole ursodiol (Actigall) capsule 300 mg 300 mg, Oral, 3 times daily, First dose on Mon10/18/24 at 0900, Until Discontinued, Routine Given 10/18/2024 9:15 AM EDT 300 mg Inactive Administered Medications - up to 3 most recent administrations Medication Order MAR Action Action Date Dose Rate Site HYDROmorphone (Dilaudid) injection 0.25 mg 0.25 mg, Intravenous, Once, 1 dose, On Mon10/18/24 at 1030, Routine Given 10/18/2024 10:02 AM EDT 0.25 mg lactated Ringer's infusion 75 mL/hr, Intravenous, Continuous, Starting on Mon10/17/24 at 2230, Until Mon10/18/24 at 0933, Routine New Bag 10/17/2024 9:57 PM EDT 75 mL/hr 75 mL/ hr magnesium oxide (Mag-Ox) tablet 400 mg 400 mg, Oral, 2 times daily, First dose on Mon10/17/24 at 2100, Until Discontinued, Routine Given 10/18/2024 9:15 AM EDT 400 mg Given 10/17/2024 8:59 PM EDT 400 mg magnesium sulfate IVPB 4 g 4 g, Intravenous, Once, 1 dose, On Mon10/17/24 at 2000, Routine New Bag 10/17/2024 8:26 PM EDT 4 g 25 mL/hr potassium chloride IVPB 20 mEq 20 mEq, Intravenous, Every 1 hour, 3 doses, First dose on Mon10/17/24 at 2030, Last dose on Mon10/17/24 at 223, RoutineIndications:Hypokalemia 10/17/2024 11:18 PM EDT 20 mEq 50 mL/hr New 10/17/2024 9:54 PM EDT 20 mEq 50 mL/hr potassium chloride IVPB 20 mEq 20 mEq, Intravenous, Once, 1 dose, On Mon10/18/24 at 0215, RoutineIndications:Hypokalemia 10/18/2024 1:22 AM EDT 20 mEq 25 mL/hr documented in this encounter Active and Recently Administered Medications Times are shown in EDT. Scheduled Medication Order 10/16/2024 10/17/2024 10/18/2024 azithromycin (Zithromax) 500 mg in sodium chloride 0.9% 250 mL IVPB (vial adapter required) 500 mg, Intravenous, Once in OR, 1 dose, Starting on Mon10/17/24 at 2040, Until Discontinued, Routine, Pre-Delivery ceFAZolin (Ancef) injection 2 g 2 g, Intravenous, Once in OR, 1 dose, Starting on Mon10/17/24 at 204, Until Discontinued, Routine, Pre-Delivery HYDROmorphone (Dilaudid) injection 0.25 mg (COMPLETED) 0.25 mg, Intravenous, Once, 1 dose, On Mon10/18/24 at 1030, Routine 1002 (Given - Provid er: Tex Harman RN) magnesium oxide (Mag-Ox) tablet 400 mg (CANCELED) 400 mg, Oral, 2 times daily, First dose on Mon10/17/24 at 2100, Until Discontinued, Routine 2058 (Given - Provider: Orlin Jimenez RN) 0915 (Given - Provider: Tex Harman RN) magnesium oxide (Mag-Ox) tablet 800 mg 800 mg, Oral, 2 times daily, First dose (after last modification) on Mon10/18/24 at 2100, Until Discontinued, Routine 2099 (Due) magnesium sulfate IVPB 4 g (COMPLETED) 4 g, Intravenous, Once, 1 dose, On Mon10/17/24 at 2000, Routine 2025 (New Bag - Provider: Orlin Jimenez RN)2318 (Stopped - Provider: Trista Luque RN - Comment: approved per MD Art) magnesium sulfate IVPB 4 g 4 g, Intravenous, Once, 1 dose, On Mon10/18/24 at 1145, Routine 1145 (Due) multivitamin tablet 1 tablet 1 tablet, Oral, Daily, First dose on Mon10/17/24 at 2000, Until Discontinued, Routine, Pre-Delivery 2101 (Not Given - Provider: Orlin Jimenez RN - Reason: Patient/family refused - Comment: Pt took some this AM.) 0915 (Given - Provider: Tex Harman RN) mupirocin (Bactroban) 2 % ointment 1 Application Each Nostril, 2 times daily, 10 doses, First dose on Mon10/18/24 at 1030, Last dose on Mon10/22/24 at 2100, Routine 1002 (Given - Provid er: Tex Harman RN)2099 (Due) potassium chloride CR (Klor-Con) ER tablet 40 mEq 40 mEq, Oral, 3 times daily, First dose on Mon10/17/24 at 2100, Until Discontinued, Routine 2099 (Due) 0915 (Given - Provider: Tex Harman RN)1600 (Due)2099 (Due) potassium chloride IVPB 10 mEq 10 mEq, Intravenous, Every 1 hour, 4 doses, First dose on Mon10/18/24 at 0700, Last dose on Mon10/18/24 at 1000, Routine 0932 (New Bag - Provider: Tex Harman RN)1036 (New Bag - Provider: Tex Harman RN)1130 (Due - Provider: Tex Harman RN)1230 (Due - Provider: Tex Harman RN) potassium chloride IVPB 20 mEq 20 mEq, Intravenous, Every 1 hour, 3 doses, First dose on Mon10/17/24 at 2030, Last dose on Mon10/17/24 at 2230, Routine 2154 (New Bag - Provider: Orlin Jimenez RN)2230 (Due)2318 (New Bag - Provider: Orlin Jimenez RN) potassium chloride IVPB 20 mEq (COMPLETED) 20 mEq, Intravenous, Once, 1 dose, On Mon10/18/24 at 0215, Routine 0122 (New Bag - Provider: Orlin Jimenez RN) sodium citrate-citric acid (Bicitra) 500-334 MG/5ML solution 30 mL 30 mL, Oral, Once in OR, 1 dose, Starting on Mon10/17/24 at 2040, Until Discontinued, Routine, Pre-Delivery ursodiol (Actigall) capsule 300 mg 300 mg, Oral, 3 times daily, First dose on Mon10/18/24 at 0900, Until Discontinued, Routine 0915 (Given - Provid er: Tex Harman RN)1600 (Due)2100 (Due) Continuous Medication Order 10/16/2024 10/17/2024 10/18/2024 dextrose 5 % and lactated Ringer's infusion 75 mL/hr, Intravenous, Continuous, Starting on Mon10/18/24 at 1030, Until Discontinued, Routine 1025 (New Bag - Provider: Tex Harman RN) lactated Ringer's infusion (CANCELED) 75 mL/hr, Intravenous, Continuous, Starting on Mon10/17/24 at 2230, Until Mon10/18/24 at 0933, Routine 215 (New Bag - Provider: Orlin Jimenez RN) PRN Medication Order 10/16/2024 10/17/2024 10/18/2024 acetaminophen (Tylenol) tablet 650 mg 650 mg, Oral, Every 4 hours PRN, Starting on Mon10/17/24 at 1911, Until Discontinued, Routine, Pre-Delivery, mild pain 2058 (Given - Provider: Orlin Jimenez RN) calcium carbonate (Tums) chewable tablet 1,000 mg 1,000 mg, Oral, 4 times daily PRN, Starting on Mon10/17/24 at 1911, Until Discontinued, Routine, Pre-Delivery, indigestion, heartburn cyclobenzaprine (Flexeril) tablet 5 mg 5 mg, Oral, 3 times daily PRN, Starting on Mon10/17/24 at 2338, Until Discontinued, Routine, muscle spasms 2350 (Given - Provider: Orlin Jimenez RN) 1002 (Given - Provider: Tex Harman, BRIT) famotidine (Pepcid) tablet 20 mg(Linked Group 1) 20 mg, Oral, 2 times daily PRN, Starting on Mon10/17/24 at 1911, Until Discontinued, Routine, Pre-Delivery, indigestion, heartburn, or inj IV 2334 (See Alternative - Provider: Orlin Jimenez RN) 1002 (See Alternative - Provider: Tex Harman RN) famotidine PF (Pepcid) injection 20 mg(Linked Group 1) 20 mg, Intravenous, 2 times daily PRN, Starting on Mon10/17/24 at 1911, Until Discontinued, Routine, Pre-Delivery, indigestion, heartburn, or tablet po 2334 (Given - Provider: Orlin Jimenez RN) 1002 (Given - Provider: Tex Harman, BRIT) hydrOXYzine pamoate (Vistaril) capsule 25 mg 25 mg, Oral, Every 6 hours PRN, Starting on Mon10/17/24 at 2328, Until Discontinued, Routine, anxiety 0018 (Given - Provid er: Orlin Jimenez RN) melatonin tablet 3 mg 3 mg, Oral, Nightly PRN, Starting on Mon10/17/24 at 2349, Until Discontinued, Routine, sleep ondansetron (Zofran) 4 MG/5ML solution 4 mg(Linked Group 2) 4 mg, Oral, Every 6 hours PRN, Starting on Carrie 10/17/24 at 1911, Until Discontinued, Routine, Pre-Delivery, nausea, vomiting 210 (See Alternative - Provider: Orlin Jimenez RN) ondansetron (Zofran) injection 4 mg(Linked Group 2) 4 mg, Intravenous, Every 6 hours PRN, Starting on Mon10/17/24 at 191, Until Discontinued, Routine, Pre-Delivery, vomiting, nausea 2102 ([facility]: Orlin Jimenez RN - Comment: Pt states it does not work for her.) ondansetron ODT (Zofran-ODT) disintegrating tablet 4 mg(Linked Group 2) 4 mg, Oral, Every 6 hours PRN, Starting on Mon10/17/24 at 191, Until Discontinued, Routine, Pre-Delivery, nausea, vomiting 2102 (See Alternative - Provider: Orlin Jimenez RN) prochlorperazine (Compazine) injection 5 mg 5 mg, Intravenous, Every 6 hours PRN, Starting on Mon10/17/24 at 233, Until Discontinued, Routine, nausea, vomiting 16 (Given - Provid er: Orlin Jimenez RN) promethazine (Phenergan) tablet 12.5 mg 12.5 mg, Oral, Every 6 hours PRN, Starting on Mon10/17/24 at 2110, Until Discontinued, Routine, nausea, vomiting 2338 (Return to [facility] - Provider: Orlin Jimenez RN - Comment: Pt denied to take by mouth.) sodium chloride 0.9 % flush 3 mL(Linked Group 3) 3 mL, Intravenous, As needed, Starting on Mon10/17/24 at 1909, Until Discontinued, Routine, Pre-Delivery, line care, 3 mL flush for PERIPHERAL IV CARE ONLY. terbutaline (Brethine) injection 0.25 mg 0.25 mg, Subcutaneous, Once as needed, 1 dose, Starting on Mon10/17/24 at 2040, Until Discontinued, Routine, Pre-Delivery, per MD orders Linked Groups Order Group 1: famotidine (Pepcid) tablet 20 mgJump to med 20 mg, Oral, 2 times daily PRN, Starting on Mon10/17/24 at 1911, Until Discontinued, Routine, Pre-Delivery, indigestion, heartburn, or inj IV Or famotidine PF (Pepcid) injection 20 mgJump to med 20 mg, Intravenous, 2 times daily PRN, Starting on Carrie 10/17/24 at 1911, Until Discontinued, Routine, Pre-Delivery, indigestion, heartburn, or tablet po Group 2: ondansetron ODT (Zofran-ODT) disintegrating tablet 4 mgJump to med 4 mg, Oral, Every 6 hours PRN, Starting on Carrie 10/17/24 at 1911, Until Discontinued, Routine, Pre-Delivery, nausea, vomiting Or ondansetron (Zofran) injection 4 mgJump to med 4 mg, Intravenous, Every 6 hours PRN, Starting on Carrie 10/17/24 at 1911, Until Discontinued, Routine, Pre-Delivery, vomiting, nausea Or ondansetron (Zofran) 4 MG/5ML solution 4 mgJump to med 4 mg, Oral, Every 6 hours PRN, Starting on Mon10/17/24 at 191, Until Discontinued, Routine, Pre-Delivery, nausea, vomiting Group 3: Insert peripheral IV Once, On Carrie 10/17/24 at 1910, For 1 occurrence, Pre-Delivery And Saline lock IV Once, On Carrie 10/17/24 at 1910, For 1 occurrence, Pre-Delivery And sodium chloride 0.9 % flush 3 mLJump to med 3 mL, Intravenous, As needed, Starting on Carrie 10/17/24 at 1909, Until Discontinued, Routine, Pre-Delivery, line care, 3 mL flush for PERIPHERAL IV CARE ONLY. documented in this encounter Additional Health Concerns Infection Onset Date Last Indicated Resolved Time COVID-19 Rule-Out 10/17/2024 10/17/2024 Respiratory Rule-Out 10/17/2024 10/17/2024 025 11:23 PM EDT Assessment Noted Time A fall risk assessment has been complete d for the patient 09/26/2024 8:15 AM EDT A Body Mass Index follow-up plan has been documented for the patient 09/27/2024 10:22 AM EDT documented as of this encounter Care Teams Acute Coordinator Relationship Specialty Start Date End Date Norma Friedman APRN [address] [place] [id number] PCP - General 09/23/24 Lizz Trinh, RN [facility] Registered Nurse Cardiology 09/26/24 documented as of this encounter
--- OUTSIDE RECORDS SUMMARY | 2024-10-18 11:11 | XMS_ITS | Encounter Summary ---
Author Organization Healthcare Address [address] [place] [address] Care Team Providers Care Airplane First Officer Name Role Phone Norma Friedman JOLENE Primary Care Provider +1- [phone] Lizz Trinh RN Unavailable Unavailable Encounter Details Date Type Department Care Team (Late Contact Info) Description 07/22/2024 Community [facility] [address] [place] [address] Sandy Cardenas MD [address] [facility] [address] [place] [id number] Social History Tobacco Use Types Packs/Day Years [...] Description 10/24/2024 8:00 AM EDT Office Visit [facility] [place] [address], [address] [place] [address] Nneka Block MD [address] [place] [address] 10/24/2024 9:45 AM EDT Routine Medical Office Building Obstetrics and Gynecology [address], [address] [place] [address] Nneka Gipson MD [address] [place] [address] 12/25/2024 1:00 PM EST Office Visit Professional [facility] Nephrology, Bone & Mineral Metabolism [address], [address] [place] [address] documented as of this encounter Visit Diagnoses Not on filedocumented in this encounter Additional Health Concerns Infection Onset Date Last Indicated Resolved Time COVID-19 Rule-Out 10/17/2024 10/17/2024 Respiratory Rule-Out 10/17/2024 10/17/2024 025 11:23 PM EDT documented as of this encounter Care Teams Airplane First Officer Relationship Specialty Start Date End Date Norma Friedman APRN [address] [place] [address] PCP - General 09/23/24 Lizz Trinh, RN [facility] Registered Nurse Cardiology 09/26/24 documented as of this encounter
--- OUTSIDE RECORDS SUMMARY | 2024-10-18 11:11 | XMS_ITS | Clinical Summary ---
Author Organization [facility] [place] [address] Phone Care Team Providers Care Director Of Customer Service Name Role Phone Unavailable Primary Care Provider [...] migh t be different from the original. [facility] - Edwardo Ojeda MD Interventional Pain Protocol: NS Appt 03/29/22 Letter Sent Maxime report completed (EVERY 3 MONTHS) ( 03/23/22) Pharmacy: [facility] [address] [place] [address] [address] [facility] south - [phone] No known active problems Social History Tobacco [...] patient's age to complete this topic Insurance [employer] [facility] [place] [address] [place] [id number] [facility] [employer] [facility] [address]
--- OUTSIDE RECORDS SUMMARY | 2024-10-18 11:11 | XMS_ITS | Encounter Summary ---
Author Organization Healthcare Address [address] [place] [address] Care Team Providers Care Photo Studio Assistant Name Role Phone Norma Friedman APRN Primary Care Provider [phone]- [phone] Encounter Details Date Type Department Care Team [...] more drinks on one occasion? Never 09/23/2024 [place] Depression Scale Answer Date Recorded [place] Depression Scale Total 0 09/23/2024 The thought [...] Description 10/24/2024 8:00 AM EDT Office Visit [facility] [place] [address], [address] [place] [address] Nneka Block MD [address] [place] [address] 10/24/2024 9:45 AM EDT Routine Medical Office Building Obstetrics and Gynecology [address], [address] [place] [address] Nneka Gipson MD [address] [place] [address] 12/25/2024 1:00 PM EST Office Visit [facility] [place] Nephrology, Bone & Mineral Metabolism [address], [address] [place] [address] documented as of this encounter Visit Diagnoses Not on filedocumented in this encounter Additional Health Concerns Assessment Noted Time A fall risk assessment has been complete d for the patient 09/25/2024 3:05 PM EDT A Body Mass Index follow-up plan has been documented for the patient 10/05/2024 8:54 PM EDT documented as of this encounter Care Teams Photo Studio Assistant Relationship Specialty Start Date End Date Norma Friedman APRN [address] [place] [address] PCP - General 09/23/24 documented as of this encounter
--- OUTSIDE RECORDS SUMMARY | 2024-10-18 11:11 | XMS_ITS | Encounter Summary ---
Author Organization [facility] Address [address] [place] [id number] Care Team Providers Care Auto Top Mechanic Name Role Phone Unavailable Primary Care Provider Unavailabl e Encounter Details Date Type Department Care Team (Late st Contact Info) Description 09/17/2024 Telephone Medical Office Building Obstetrics and Gynecology [address], [address] [place] [address] Josefina Sahy RN [facility] [address] [place] [address] Social History Tobacco Use Types Packs/Day Years [...] had a full Nephrology work-up at [facility] that was negative and was not [...] Description 10/24/2024 8:00 AM EDT Office Visit [facility] [place] [address], [address] [place] [address] Nneka Block MD [address] [place] [address] 10/24/2024 9:45 AM EDT Routine Medical Office Building Obstetrics and Gynecology [address], [address] [place] [address] Nneka Gipson MD [address] [place] [address] 12/25/2024 1:00 PM EST Office Visit [facility] Nephrology, Bone & Mineral Metabolism [address], [address] [place] [address] documented as of this encounter Visit Diagnoses Not on filedocumented in this encounter
--- OUTSIDE RECORDS SUMMARY | 2024-10-18 11:11 | XMS_ITS | Encounter Summary ---
Author Organization Healthcare Address [address] [place] [address] Care Team Providers Care Craft Center Director Name Role Phone Unavailable Primary Care Provider Unavailabl e Reason for Referral * Consultation (Routine) - Closed Specialty Diagnoses / Procedures Referred By Contac t Referred To Contact Nephrology Diagnoses Hypokalemia Liborio Weller MD [address] [place] [address] Phone: tel: fax: [facility] Nephrology, Bone & Mineral Metabolism [address], [address] [place] [address] Phone: tel: fax: Referral ID Status Reason Start Date Expiration Date V isits Requested Visits Authorized [id number] Closed Specialty Services Required 09/14/2024 03/16/2026 1 1 Scheduling Instructions Severe hypokalemia in the setting of Encounter Details Date Type Department Care Team (Late st Contact Info) Description 09/14/2024 Telephone [facility] Obstetrics & Gynecology [address] [place] [address] Susi Wren MD [address] [place] [address] Social History Tobacco Use Types [...] had an outpatient workup with Nephrology at [facility] that was negative, she was [...] Description 10/24/2024 8:00 AM EDT Office Visit [facility] [place] [address], [address] [place] [address] Nneka Block MD [address] [place] [address] 10/24/2024 9:45 AM EDT Routine Medical Office Building Obstetrics and Gynecology [address], [address] [place] [address] Nneka Gipson MD [address] [place] [address] 12/25/2024 1:00 PM EST Office Visit Professional [facility] Nephrology, Bone & Mineral Metabolism [address], [address] [place] [address] Scheduled Referrals Name Type Priority Associated Diagnoses Order Schedule Ambulatory referral to Nephrology Clinic Outpatient Referral Routine Hypokalemia 1 Occurrences starting 09/14/2024 until 03/18/2026 documented as of this encounter Visit Diagnoses Diagnosis Hypokalemia- Primary Hypopotassemia documented in this encounter
--- OUTSIDE RECORDS SUMMARY | 2024-10-18 11:11 | XMS_ITS | Clinical Summary ---
Author Organization [facility] Address [address] [place] [address] Care Team Providers Care Charging Manipulator Name Role Phone Unavailable Primary Care Provider Unavailabl e Source Comments [facility] is fully rolled out with thefollowing exceptions:General Clinical Research [facility] Social History Tobacco Use Types Packs/Day [...]
--- OUTSIDE RECORDS SUMMARY | 2024-10-18 11:11 | XMS_ITS | Encounter Summary ---
Author Organization [facility] Address [address] [place] [address] Care Team Providers Care Client Operations Manager Name Role Phone Elder Kadedev Coy APRN Primary Care Provider [phone]- [phone] Lizz Trinh RN Unavailable Unavailable Reason for Referral * Consultation (Routine) - Authorized Specialty Diagnoses / Procedures Referred By Tarik pedersen Referred To Contact Nephrology Diagnoses History of proteinuria syndrome care, subsequent , second trimester Staci Jain MD [address] [address] Phone: tel: fax: [facility] Nephrology, Bone & Mineral Metabolism [address], [address] [place] [address] Phone: tel: fax: Referral ID Status Reason Start Date Expiration Date Visits Requested Visits Authorized [id number] Authorized Specialty Services Required 07/22/2024 01/21/2026 1 1 Encounter Details Date Type Department Care Team (Late st Contact Info) Description 07/22/2024 Community Orders Community [facility] [address] [place] [address] Staci Jain MD [address] [place] [address] History of proteinuria syndrome (Primary Dx); care, [...] Upcoming Encounters Date Type Department Care Team ([facility] st Contact Info) Description 10/24/2024 8:00 AM EDT Office Visit [facility] [place] [address], [address] [place] [address] Nneka Block MD [address] [place] [address] 10/24/2024 9:45 AM EDT Routine Medical Office Building Obstetrics and Gynecology [address], [address] [place] [address] Nneka Gipson MD [address] [place] [address] 12/25/2024 1:00 PM EST Office Visit [facility] Nephrology, Bone & Mineral Metabolism [address], [address] [place] [address] Scheduled Referrals Name Type Priority Associated Diagnoses Orde r Schedule Ambulatory referral to Nephrology Outpatient Referral Routine History of proteinuria syndrome care, subsequent , second trimester Expected: 07/22/2024 (Approximate), Expires: 01/23/2026 documented as of this encounter Visit Diagnoses Diagnosis History of proteinuria syndrome- Primary care, subsequent , second trimester documented in this encounter Additional Health Concerns Infection Onset Date Last Indicated Resolved Time COVID-19 Rule-Out 10/17/2024 10/17/2024 Respiratory Rule-Out 10/17/2024 10/17/2024 025 11:23 PM EDT documented as of this encounter Care Teams Client Operations Manager Relationship Specialty Start Date End Date Norma Friedman APRN [address] [place] [address] PCP - General 09/23/24 Lizz Trinh, RN [facility] Registered Nurse Cardiology 09/26/24 documented as of this encounter
--- OUTSIDE RECORDS SUMMARY | 2024-10-18 11:11 | XMS_ITS | Encounter Summary ---
[facility] Organization [facility] Address [address] [place] [id number] Care Team Providers Care Beef Skinner Name Role Phone Ivyashlyn Norma FERNÁNDEZ Primary Care Provider + [phone] Encounter Details Date Type Department Care Team (Late st Contact Info) Description 06/26/2024 Results Follow-Up [facility] OBGYN [address] [address] Koby Roberts MD [address] [place] [address] Social History Tobacco Use Types Packs/Day Years Used Date Smoking Tobacco: Never Smokeless Tobacco: Never Alcohol Use Standard Drinks/Week Comments Never 0 (1 standard drink = 0.6 oz pur e alcohol) [facility] Utilities Answer Date Recorded In the past 12 months has [employer], gas, oil, or water [employer] threatened to shut off services in your [...] and heating? Not hard at all 05/28/2024 [facility] of Occupat ional Health - Occupational Stress [...] Visit [facility] GASTROENTEROLOGY [address] [facility] [address] Robbin Escalante MD [address] [address] documented as of this encounter Visit Diagnoses Not on filedocumented in this encounter Additional Health Concerns Assessment Noted Time PHQ-2 Depression Total Score: 2 05/28/19 25 4:39 PM EDT documented as of this encounter Care Teams Beef Skinner Relationship Specialty Start Date End Date Norma Friedman APRN [address] [place] [address] [place] [address] PCP - General Family Medicine 05/14/24 documented as of this encounter
--- OUTSIDE RECORDS SUMMARY | 2024-10-18 11:11 | XMS_ITS | Encounter Summary ---
Author Organization Healthcare Address [address] [place] [address] Care Team Providers Care Molded Goods Controls Operator Name Role Phone Norma Friedman APRN Primary Care Provider [phone]- [phone] Encounter Details Date Type Department Care Team [...] more drinks on one occasion? Never 09/23/2024 [place] Depression Scale Answer Date Recorded [place] Depression Scale Total 0 09/23/2024 The thought [...] Description 10/24/2024 8:00 AM EDT Office Visit [facility] [place] [address], [address] [place] [address] Nneka Block MD [address] [place] [address] 10/24/2024 9:45 AM EDT Routine Medical Office Building Obstetrics and Gynecology [address], [address] [place] [address] Nneka Gipson MD [address] [place] [address] 12/25/2024 1:00 PM EST Office Visit [facility] Nephrology, Bone & Mineral Metabolism [address], [address] [place] [address] documented as of this encounter Visit Diagnoses Not on filedocumented in this encounter Additional Health Concerns Assessment Noted Time A Body Mass Index follow-up plan has been documented for the patient 09/23/2024 8:28 PM EDT documented as of this encounter Care Teams Molded Goods Controls Operator Relationship Specialty Start Date End Date Norma Friedman APRN [address] [place] [address] PCP - General 09/23/24 documented as of this encounter
--- OUTSIDE RECORDS SUMMARY | 2024-10-18 11:11 | XMS_ITS | Encounter Summary ---
Author Organization [facility] Address [address] [place] [address] Care Team Providers Care Ladle Builder Name Role Phone Unavailable Primary Care Provider Unavailabl e Encounter Details Date Type Department Care Team (Late Contact Info) Description 09/17/2024 Telephone [facility] Nephrology, Bone & Mineral Metabolism [address], [address] [place] [address] Sherley Gold, PROCESS CONTROL OPERATOR GS - 7 MAIN MEDICAL-SURGICAL Social [...] Description 10/24/2024 8:00 AM EDT Office Visit [facility] [place] [address], [address] [place] [address] Nneka Block MD [address] [place] [address] 10/24/2024 9:45 AM EDT Routine Medical Office Building Obstetrics and Gynecology [address], [address] [place] [address] Nneka Gipson MD [address] [place] [address] 12/25/2024 1:00 PM EST Office Visit [facility] Nephrology, Bone & Mineral Metabolism [address], [address] [place] [address] documented as of this encounter Visit Diagnoses Not on filedocumented in this encounter
--- OUTSIDE RECORDS SUMMARY | 2024-10-18 11:11 | XMS_ITS | Encounter Summary ---
[facility] Address [address] [place] [id number] Care Team Providers Care Refuge Worker Name Role Phone IvyKade goldbergjoseseven JOLENE Primary Care Provider + [phone] Encounter Details Date Type Department Care Team (Late st Contact Info) Description 09/26/2024 Documentation [facility] LABOR DELIVERY [address] [place] [address] Christy Zabala, RN Social History Tobacco Use Types Packs/Day Years Used Date Smoking Tobacco: Never Smokeless Tobacco: Never Alcohol Use Standard Drinks/Week Comments Never 0 (1 standard drink = 0.6 oz pur e alcohol) [facility] Utilities Answer Date Recorded In [...] and heating? Not hard at all 05/28/2024 [facility] of Occupat ional Health - Occupational Stress [...] Review of chart reveals patient [facility] to [facility] to continue care. Will plan to review chart around [facility]C for delivery information. documented in this encounter Plan of Treatment Upcoming Encounters Date Type Department Care Team (Late st Contact Info) Description 01/20/2025 3:30 PM EST Office Visit [facility] GASTROENTEROLOGY [address] [phone] Robbin Escalante MD [address] [address] documented as of this encounter Visit Diagnoses Not on filedocumented in this encounter Additional Health Concerns Assessment Noted Time PHQ-2 Depression Total Score: 2 05/28/19 25 4:39 PM EDT documented as of this encounter Care Teams Refuge Worker Relationship Specialty Start Date End Date Norma Friedman APRN [address] [place] [address] [place] [address] PCP - General Family Medicine 05/14/24 documented as of this encounter
--- OUTSIDE RECORDS SUMMARY | 2024-10-18 11:11 | XMS_ITS | Encounter Summary ---
[facility] [address] [place] [id number] Care Team Providers Care Material Requirements Worker Name Role Phone IvyNorma goldberg JOLENE Primary Care Provider + [phone] Reason for Visit * Reason Onset Date Comments Advice Only 10/10/2024 Encounter Details Date Type Department Care Team (Late st Contact Info) Description 10/10/2024 Telephone [facility] MATERNAL MEDICINE [address] [facility] [place] [address] [place] [address] Lyudmila Germain, gasket notcher Only Social History Tobacco Use Types Packs/Day Years Used Date Smoking Tobacco: Never Smokeless Tobacco: Never Alcohol Use Standard Drinks/Week Comments Never 0 (1 standard drink = 0.6 oz pur e alcohol) [facility] Utilities Answer Date Recorded In the past 12 months has [employer], gas, oil, or water [email or web address] threatened to shut off services in your [...] Not hard at all 05/28/2024 [facility] [place] of Occupat ional Health - Occupational Stress [...] Late entry: Patient called desiring appointment with [facility] due to hypokalemia and hypomagnesemia requiring infusions every other day. Per hospice care transitions coordinator, referral was received here last week but our physicians determined patient needs to continue receiving [facility] care at as she sees otherspeciality physicians (cardiology, nephrology) there as well. Discussed this with patient who states Dr. Weller () refused to see her again and she has no options. Patient reported her physicians at [facility] told her if she has another cardiac event she will . Upon reviewing notes from specialists at , cardiology note states patient will wear compliance monitor and return in 4 weeks to discuss r esults and delivery plans and monitoring. Patient states cardiology refuses to see her until she ispostpartum - although it appears she has an appointment on 10/24. Per note from nephrology at , limited options for treatment other than continued repletion. Informed patient our office will reach out to [facility] at to determine if there is an issue in scheduling her there and we will call her back. After our office talked to [facility], a nurse there states there is no issue with her scheduling and she is more than welcome to come back for appointments. Called patient back, informed her she is welcome to schedule a follow-up at [facility] and gave her their office number. documented in this encounter Plan of Treatment Upcoming Encounters Date Type Department Care Team (Late st Contact Info) Description 01/20/2025 3:30 PM EST Office Visit [facility] GASTROENTEROLOGY [address] [facility] [address] [place] [address] Robbin Escalante MD [address] [facility] [address] [place] [address] documented as of this encounter Visit Diagnoses Not on filedocumented in this encounter Additional Health Concerns Assessment Noted Time PHQ-2 Depression Total Score: 2 05/28/19 4:39 PM EDT documented as of this encounter Care Teams Material Requirements Worker Relationship Specialty Start Date End Date Norma Friedman APRN [address] [place] [address] [place] [address] PCP - General Family Medicine 05/14/24 documented as of this encounter
--- OUTSIDE RECORDS SUMMARY | 2024-10-18 11:12 | XMS_ITS | Encounter Summary ---
Author Organization Healthcare Address [address] [place] [address] Care Team Providers Care Conference Services Director Name Role Phone Norma Friedman JOLENE Primary Care Provider [phone] Lizz Trinh RN Unavailable Unavailable Reason for Visit * Reason Onset Date Comments [facility] Care coordiantion 10/17/2024 Encounter Details Date Type Department Care Team ([facility] st Contact Info) Description 10/17/2024 Telephone Medical Office Building Obstetrics and Gynecology [address] [facility] [address] [facility] [address] [facility], [address] [place] [address] Tracy Segovia, RN [facility] OB ULTRASOUND CLINIC 1st FLR [facility] Care coordiantion Social History Tobacco Use Types Packs/Day Years [...] more drinks on one occasion? Never 09/23/2024 [place] Depression Scale Answer Date Recorded [place] Depression Scale Total 0 09/23/2024 The thought [...] encounter Miscellaneous Notes * Telephone Encounter - Tracy Segovia RN - 10/17/2024 1:01 PM EDT Request received from SOLOMON Champion to contact patient's local OB, Dr. Ramon to schedule NST tomorrow with her scheduled infusion. I reached out to Qi at Dr. Ramon's office, we reviewed that Whitney was seen today by [facility],she had a non reactive NST, and BPP 6/8 ( breathing not seen). Discussed that Whitney declined presenting to [facility] for extended monitoring today or returning to our clinic tomorrow (10/18/24) for a repeat NST. Whitney is agreeable for do an NST with her local OB provider as she is already scheduled for an infusion with their office. Qi agreeable to schedule patient for NST on10/18/24. Offered to send notes from today's appointment, Qi provided me with her office's fax# ([phone]). No additional questions at this time. documented in this encounter Plan of Treatment Upcoming Encounters Date Type Department Care Team (Late st Contact Info) Description 10/24/2024 8:00 AM EDT Office Visit [facility] [place] [address] [facility], [address] [place] [address] Nneka Block MD [address] [place] [address] 10/24/2024 9:45 AM EDT Routine Medical Office Building Obstetrics and Gynecology [address] [facility] [place] [address] Nneka Gipson MD [address] [place] [address] 12/25/2024 1:00 PM EST Office Visit [facility] [place] Nephrology, Bone & Mineral Metabolism [address] [facility], [address] [place] [address] documented as of this encounter Visit Diagnoses Not on filedocumented in this encounter Additional Health Concerns Assessment Noted Time A fall risk assessment has been complete d for the patient 09/26/2024 8:15 AM EDT A Body Mass Index follow-up plan has been documented for the patient 09/27/2024 10:22 AM EDT documented as of this encounter Care Teams Conference Services Director Relationship Specialty Start Date End Date Norma Friedman APRN [address] [place] [address] PCP - General 09/23/24 Lizz Trinh, RN [facility] Registered Nurse Cardiology 09/26/24 documented as of this encounter
--- OUTSIDE RECORDS SUMMARY | 2024-10-18 11:12 | XMS_ITS | Clinical Summary ---
Author Organization [facility] Address [address] [place] [address] Care Team Providers Care Roof Designer Name Role Phone Norma Friedman APRN Primary Care Provider + [phone] Allergies Active Allergy Reactions Criticality Noted Date [...] Type Department Care Team Description 5 Telephone [facility] MATERNAL MEDICINE [address] [facility] [place] [address] [place] [address] Lyudmila Germain, desulfurizer hand Only 5 Documentation [facility] LABOR DELIVERY [address] [place] [address] Christy Zabala RN 5 Results Follow-Up [facility] OBGYN [address] [place] [address] Rob Wharton MD 5 Telephone [facility] OBGYN [address] [facility] [address] [place] [address] Rob Wharton MD 5 10:00 AM EDT Routine [facility] [place] [address] Rob Wharton MD GA: 26w4d 5 Travel 5 Telephone [facility] OBGYN 1700 [facility] [address] [place] [address] Rob Wharton MD 5 Telephone [facility] [place] [address] Rob Wharton MD 5 1:44 PM EDT Anesthesia Event [facility] ENDO SUITES [address] [place] [address] Akash Anguiano MD Lanham, John, CRNA 5 1:33 PM EDT - 5 2:05 PM EDT Surgery [facility] ENDO SUITES [address] [place] [address] Blu Alvarado MD ESOPHAGOGASTRODUODENOSCOPY [25498 (CPT )] 5 1:59 PM EDT - 5 4:28 PM EDT Hospital Encounter [facility] ANTEPARTUM [address] [place] [address] Rob Wharton MD Brunner, Mark I, MD Dysphagia, unspecified type (Primary Dx) Discharge Disposition: Home or Self Care 5 10:15 AM EDT Routine [facility] OBGYN [address] [place] [address] Jacey Mathews, BOTTLED BEVERAGE INSPECTOR GA: 25w 5 Telephone [facility] OBGYN [address] [place] [address] Jacey Mathews, BOTTLED BEVERAGE INSPECTOR 5 Travel 5 Patient Outreach [facility] LABOR DELIVERY [address] [place] [address] Christy Zabala RN 5 9:10 AM EDT Routine [facility] OBGYN 1700 [facility] [address] [place] [address] Rob Wharton MD GA: 21w 5 8:00 AM EDT Office Visit [facility] MATERNAL MEDICINE 1700 [facility] [address] [place] [address] Sebastian Larsen MD History of prior with small for gestational age (Primary Dx) 5 7:44 AM EDT - 5 11:59 PM EDT Hospital Encounter [facility] US PER DIAG CTR [address] [place] [address] Kelly Delgado, BOTTLED BEVERAGE INSPECTOR care, antepartum, unspecified ; High risk due [...] e alcohol) [facility] Utilities Answer Date Recorded In the past [...] Not hard at all 05/28/2024 [facility] of Occupat ional Health - Occupational Stress [...] GED or equivalent No 05/28/2024 Preferred Language Belizean 05/28/2024 PHQ-2 Answer Date Recorded Patient Health [...] Visit [facility] GASTROENTEROLOGY [address] [facility] [address] [place] [address] Robbin Escalante MD [address] [facility] [address] [place] [address] Health Maintenance Due Date Last [...] 08/20/2024 1:55 PM EDT Dysphagia, unspecified type NV ESOPHAGOGASTRODUODENOSCOP Y TRANSORAL DIAGNOSTIC 08/20/2024 1:44 PM EDT Dysphagia, unspecified type UPPER GI ENDOSCOPY 08/20/2024 1:09 PM EDT BASIC METABOLIC PANEL STAT 08/20/2024 5:25 AM EDT POTASSIUM STAT 08/19/2024 8:53 PM EDT ABORH 2ND SPECIMEN VERIFICATION STAT 08/19/2024 4:34 PM EDT NONSTRESS TEST Routine 08/19/2024 4:17 PM EDT [facility] Routine 08/19/2024 3:25 PM EDT [...] 10:02 AM EDT Multigravida in second trimester [facility] Routine 07/22/2024 9:10 AM EDT [...] 08/30/2024 6:09 AM EDT Performed at: [address] [place] [id number] Lay Out Maker: Kevin Harman MD, Phone: [phone] Patient Fasting: N Rob Wharton MD LAB BLOOD ORDERABLES Final Result [facility] (AMBULATORY) [address] [place] [address], [facility] [address] [place] [address], [place] [phone] * (ABNORMAL) Comprehensive Metabolic Panel (08/29/2024 11:05 AM EDT) Only the most recent of2 resultswithin the time period is included. [facility] [address] Glucose 72 65 - 99 mg/dL [facility] [...] 08/30/2024 6:09 AM EDT Performed at: [address] [place] [id number] Lay Out Maker: Kevin Harman MD, Phone: [phone] Patient Fasting: N us Rob Wharton MD LAB BLOOD ORDERABLES Final Result [facility] (AMBULATORY) [address] [place] [address], [facility] [address] [place] [address], [place] [phone] * (ABNORMAL) POC Urinalysis Dipstick (08/29/2024 10:13 AM EDT) Only the most recent of2 resultswithin the time period is included. Glucose, UA Negative Negative mg/dL [facility] Protein, POC Trace(A) Negative mg/dL [facility] Urine 08/29/2024 10:1 3 AM EDT Rob Wharton MD POINT OF CARE TEST OR DERABLES Final Result [facility]
[address] [place] [address], [place] [phone] * BH AN ETT AIRWAY (08/20/2024 2:02 [...] symmetric chest rise and fall Liborio Peralta SOIL SCIENCE TEACHER ANESTHESIA ORDERABLES Final Res ult * Tissue Pathology Exam (08/20/2024 1:55 PM EDT) Case Report Surgical Pathology Report Case: [id number] Authorizing Provider: Blu Alvarado MD Collected: 08/20/2024 01:55 PM Ordering Location: [facility] Received: 08/20/2024 02:14 PM ENDO SUITES Pathologist: Khalida Rhoades DO Specimen: Gastric, Antrum, antrum bx for path 08/22/2024 9:18 AM EDT [facility] Clinical Information Dysphagia, unspecified type 08/22/2024 9:18 AM EDT [facility] Final Diagnosis Stomach, antrum, biopsy: 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 pylori is negative (no organisms are identified) Negative for intestinal metaplasia, dysplasia, or malignancy 08/22/2024 9:18 AM EDT [facility] at 0918 EDT Gross Description 1. Gastric, Antrum. Received in formalin labeled antrum biopsy is a 0.4 x 0.2 x 0.2 cm pink-see soft tissue fragment submitted entirely in a single cassette. HDM 08/22/2024 9:18 AM EDT [facility] Microscopic Description The slides are reviewed and demonstrate histopathologic features supporting the above rendered diagnosis. 08/22/2024 9:18 AM EDT [facility] Tissue Pyloric antrum structure / Unknown 08/20/2024 1:55 PM EDT 08/20/2024 2:14 PM EDT us Blu Alvarado MD PATHOLOGY/CYTOLOGY ORDERABLES Final Result [facility]
[address] [place] [address], * Upper GI Endoscopy (08/20/2024 1:09 PM EDT) us Blu Alvarado MD INTERFACE NEEDS Final Result * (ABNORMAL) Basic Metabolic Panel (08/20/2024 5:25 AM EDT) Glucose 84 65 - 99 mg/dL 08/20/2024 6:13 AM EDT [facility] BUN 2.3(L) 6.0 - 20.0 mg/dL 08/20/2024 6:13 AM EDT [facility] Creatinine 0.51(L) 0.57 - 1.00 mg/dL 08/20/2024 6:13 AM EDT [facility] Sodium 139 136 - 145 mmol/L 08/20/2024 6:13 AM EDT [facility] Potassium 3.5 3.5 - 5.2 mmol/L 08/20/2024 6:13 AM EDT [facility] Chloride 109(H) 98 - 107 mmol/L 08/20/2024 6:13 AM EDT [facility] CO2 23.5 22.0 - 29.0 mmol/L 08/20/2024 6:13 AM EDT [facility] Calcium 7.8(L) 8.6 - 10.5 mg/dL 08/20/2024 6:13 AM EDT [facility] BUN/Creatinine Ratio 4.5(L) 7.0 - 25.0 08/20/2024 6:13 AM EDT [facility] Anion Gap 6.5 5.0 - 15.0 mmol/L 08/20/2024 6:13 AM EDT [facility] eGFR 126.6 >60.0 mL/min/1.7 3 08/20/2024 6:13 AM EDT [facility] Blood Venipuncture / Unknown 08/20/2024 5:25 AM EDT 08/20/2024 5:46 AM EDT Narrative [facility] - 08/20/2024 6:13 AM EDT [...] Performing Organization Address City/[facility] Co de Phone Number [facility]
[address] [place] [address], * (ABNORMAL) Potassium (08/19/2024 8:53 PM EDT) Potassium 2.7(L) 3.5 - 5.2 mmol/L 08/19/2024 9:20 PM EDT [facility] Blood Venipuncture / Unknown 08/19/2024 8:53 PM EDT 08/19/2024 9:04 PM EDT Kt Fan DO LAB BLOOD ORDERABLES Final Result Performing Organization Address [facility] Co de Phone Number [facility]
[address] [place] [address], [place] [phone] * ABO RH Specimen Verification (08/19/2024 4:34 PM EDT) ABO Type O 08/19/2024 7:39 PM EDT [facility] RH type Positive 08/19/2024 7:39 PM EDT [facility] Blood Venipuncture / Unknown 08/19/2024 4:34 PM EDT 08/19/2024 4:53 PM EDT Rob Wharton MD BLOOD BANK TEST ORDER FRANCO Final Result [facility] LABOR[facility]
[address] [place] [address], * [facility] (08/19/2024 3:25 PM EDT) Only the most recent of2 resultswithin the time period is included. Anatomical Region Laterality Modality Ultrasound 08/19/2024 3:09 PM EDT Narrative 08/19/2024 4:54 PM EDT PAT NAME: CAROLE GIRARD MED REC#: [id number] DA: [id number] PAT GEND: F PAT TYPE: E EXAM TRAVIS: [id number] REF PHYS ROB WHARTON Comparison Studies The [...] EFW (oz) 9 oz EFW by: Hadlock ([id number]) Extended Cav. septi pel. tr 4.7 mm Cattle Dealer 3.8 mm CM 7.5 mm 84% Nicolaides [...] Heart / Thorax 3-vessel view: Appears normal 2-yrclxk-ligqaqt view: Appears normal Stomach: Appears normal Kidneys: [...] in 4wks for growth. Coding ======= Description: [id number] Follow Up It Portfolio Manager: RT Annetta Hartmann , [facility] Physician: Jo Chappell MD Electronically signed by: Jo Chappell MD at: 16:54 Procedure Note Jo Chappell MD - 08/19/2024 PAT NAME: CAROLE GIRARD MED REC#: [id number] DA: 1990 PAT GEND: F PAT TYPE: E EXAM TRAVIS: [id number] REF PHYS ROB WHARTON Comparison Studies The findings of this study are compared to the prior ultrasound studydated 07/22/24 Patient Status Inpatient Indication ======== History of c/s x1. History of . Vaginal bleeding. Maternal Assessment Xpmlgo747 cm Height (ft)5 ft Height (in)4 in Gzyamu01 kg Weight (lb)158 lb BMI27.31 kg/m Method ======= Transabdominal ultrasound examination. View: Limited by patient bodyhabitus ========= Love . Number of fetuses: 1 Dating ====== Method of dating:based on stated DUSTY GA by prior lqnndjzyrb80 w + 1 d DUSTY by prior [...] Hadlock Femur44.9 mm 24w 6d 27% Hadlock Dyczkwm91.3 mm 25w 3d 50% Jamal HC / AC1.16 OVS879 g 24w 2d 16% Hadlock EFW (lb)1 lb EFW (oz)9 oz EFW by:Hadlock ([id number]) Extended Cav. septi pel. tr4.7 mm Vp3.8 mm CM7.5 mm 84% Nicolaides Head / Face / Neck Cephalic index0.71 <1% Nicolaides Extremities / Bony Struc FL / BPD0.78 FL / HC0.20 FL / AC0.23 Other Structures TOQ292 bpm General Evaluation Cardiac activity present. FHR [...] normal Heart / Thorax 3-vessel view:Appears normal 8-eyxtru-xdsgken view:Appears normal Stomach:Appears normal Kidneys:Appears normal Bladder:Appears normal Gender:female Wants to know gender:yes Maternal Structures Uterus / Cervix Cervix:Visualized Approach:Transabdominal Cervical seejlu03.9 mm Doppler Arterial Umbilical A PI1.01 32% [...] office in 4wks for growth. Coding ======= Description:69023-35 Follow Up It Portfolio Manager: RT Annetta Hartmann , [facility] Physician: Jo Chappell MD Electronically signed by: Jo Chappell MD at: 16:54 us Kt Fan DO [facility] [place] ORDERABLES Final Res ult * Urinalysis, Microscopic Only - Urine, Clean Catch (08/19/2024 3:02 PM EDT) RBC, UA 0-2 None Seen, 0-2 /HPF 08/19/2024 3:33 PM EDT [facility] WBC, UA 0-2 None Seen, 0-2 /HPF 08/19/2024 3:33 PM EDT [facility] Bacteria, UA None Seen None Seen /HPF 08/19/2024 3:33 PM EDT [facility] Squamous Epithelial Cells, UA 0-2 None Seen, 0-2 /HPF 08/19/2024 3:33 PM EDT [facility] Hyaline Casts, UA None Seen None Seen /LPF 08/19/2024 3:33 PM EDT [facility] Methodology Automated Microscopy 08/19/2024 3:33 PM EDT [facility] Urine Urine specimen obtained by clean catch procedure / Unknown Collection / Unknown 08/19/2024 3:02 PM EDT 08/19/2024 3:13 PM EDT us Kt Fan DO URINE ORDERABLES Final Resu lt [facility]
[address] [place] [address], * (ABNORMAL) Urinalysis With Microscopic If Indicated (No Culture) - Urine, Clean Catch (08/19/2024 3:02 PM EDT) Color, UA Yellow Yellow, Straw 08/19/2024 3:33 PM EDT [facility] Appearance, UA Clear Clear 08/19/2024 3:33 PM EDT [facility] pH, UA >=9.0(H) 5.0 - 8.0 08/19/2024 3:33 PM EDT [facility] Specific [place], UA 1.018 1.005 - 1.030 08/19/2024 3:33 PM EDT [facility] Glucose, UA Negative Negative 08/19/2024 3:33 PM EDT [facility] Ketones, UA 15 mg/dL (1+)(A) Negative 08/19/2024 3:33 PM EDT [facility] Bilirubin, UA Negative Negative 08/19/2024 3:33 PM EDT [facility] Blood, UA Negative Negative 08/19/2024 3:33 PM EDT [facility] Protein, UA 30 mg/dL (1+)(A) Negative 08/19/2024 3:33 PM EDT [facility] Leuk Esterase, UA Negative Negative 08/19/2024 3:33 PM EDT [facility] Nitrite, UA Negative Negative 08/19/2024 3:33 PM EDT [facility] Urobilinogen, UA 1.0 E.U./dL 0.2 - 1.0 E.U./dL 08/19/2024 3:33 PM EDT [facility] Urine Urine specimen obtained by clean catch procedure / Unknown Collection / Unknown 08/19/2024 3:02 PM EDT 08/19/2024 3:13 PM EDT Kt Fan DO URINE ORDERABLES Final Resu lt [facility]
[address] [place] [address], * (ABNORMAL) CBC Auto Differential (08/19/2024 3:02 PM EDT) WBC 9.19 3.40 - 10.80 10*3/mm3 08/19/2024 3:23 PM EDT [facility] RBC 3.58(L) 3.77 - 5.28 10*6/mm3 08/19/2024 3:23 PM EDT [facility] Hemoglobin 10.5(L) 12.0 - 15.9 g/dL 08/19/2024 3:23 PM EDT [facility] Hematocrit 31.4(L) 34.0 - 46.6 % 08/19/2024 3:23 PM EDT [facility] MCV 87.7 79.0 - 97.0 fL 08/19/2024 3:23 PM EDT [facility] MCH 29.3 26.6 - 33.0 pg 08/19/2024 3:23 PM EDT [facility] MCHC 33.4 31.5 - 35.7 g/dL 08/19/2024 3:23 PM EDT [facility] RDW 13.4 12.3 - 15.4 % 08/19/2024 3:23 PM EDT [facility] RDW-SD 42.4 37.0 - 54.0 fl 08/19/2024 3:23 PM EDT [facility] MPV 12.0 6.0 - 12.0 fL 08/19/2024 3:23 PM EDT [facility] Platelets 241 140 - 450 10*3/mm3 08/19/2024 3:23 PM EDT [facility] Neutrophil % 66.8 42.7 - 76.0 % 08/19/2024 3:23 PM EDT [facility] Lymphocyte % 24.4 19.6 - 45.3 % 08/19/2024 3:23 PM EDT [facility] Monocyte % 7.6 5.0 - 12.0 % 08/19/2024 3:23 PM EDT [facility] Eosinophil % 0.7 0.3 - 6.2 % 08/19/2024 3:23 PM EDT [facility] Basophil % 0.2 0.0 - 1.5 % 08/19/2024 3:23 PM EDT [facility] Immature Grans % 0.3 0.0 - 0.5 % 08/19/2024 3:23 PM EDT [facility] Neutrophils, Absolute 6.14 1.70 - 7.00 10*3/mm3 08/19/2024 3:23 PM EDT [facility] Lymphocytes, Absolute 2.24 0.70 - 3.10 10*3/mm3 08/19/2024 3:23 PM EDT [facility] Monocytes, Absolute 0.70 0.10 - 0.90 10*3/mm3 08/19/2024 3:23 PM EDT [facility] Eosinophils, Absolute 0.06 0.00 - 0.40 10*3/mm3 08/19/2024 3:23 PM EDT [facility] Basophils, Absolute 0.02 0.00 - 0.20 10*3/mm3 08/19/2024 3:23 PM EDT [facility] Immature Grans, Absolute 0.03 0.00 - 0.05 10*3/mm3 08/19/2024 3:23 PM EDT [facility] nRBC 0.0 0.0 - 0.2 /100 WBC 08/19/2024 3:23 PM EDT [facility] Blood Line / Unknown 08/19/2024 3: 02 PM EDT 08/19/2024 3:10 PM EDT Kt Fan DO LAB BLOOD ORDERABLES Final Result [facility]
[address] [place] [address], * Protein / Creatinine Ratio, Urine - [...] Fan DO URINE ORDERABLES Final Resu lt [facility]
[address] [place] [address], * Type & Screen (08/19/2024 3:02 PM EDT) ABO Type O 08/19/2024 3:51 PM EDT [facility] RH type Positive 08/19/2024 3:51 PM EDT [facility] Antibody Screen Negative 08/19/2024 3:51 PM EDT [facility] T&S Expiration Date 08/22/2024 11:59:59 PM 08/19/2024 3:51 PM EDT [facility] Blood Line / Unknown 08/19/2024 3: 02 PM EDT 08/19/2024 3:15 PM EDT Kt Fan DO BLOOD BANK TEST ORDERABLES Edited Result - Final Performing Organization Address City/[facility]/ZIP Co de Phone Number [facility]
[address] [place] [address], * (ABNORMAL) Magnesium (08/19/2024 3:02 PM EDT) Magnesium 1.5(L) 1.6 - 2.6 mg/dL 08/19/2024 5:12 PM EDT [facility] Blood Line / Unknown 08/19/2024 3: 02 PM EDT 08/19/2024 3:10 PM EDT us Kt Fan DO LAB BLOOD ORDERABLES Final Result [facility]
[address] [place] [address], * Lipase (08/19/2024 3:02 PM EDT) Lipase 13 13 - 60 U/L 08/19/2024 3:36 PM EDT [facility] Blood Line / Unknown 08/19/2024 3: 02 PM EDT 08/19/2024 3:10 PM EDT Kt Fan DO LAB BLOOD ORDERABLES Final Result Performing Organization Address City/[facility]/ZIP Co de Phone Number [facility]
[address] [place] [address], * Amylase (08/19/2024 3:02 PM EDT) Pathologist [facility] Amylase 73 28 - 100 U/L 08/19/2024 3:36 PM EDT [facility] Blood Line / Unknown 08/19/2024 3: 02 PM EDT 08/19/2024 3:10 PM EDT Kt Fan DO LAB BLOOD ORDERABLES Final Result Performing Organization Address [facility] de Phone Number [facility]
[address] [place] [address], * Hepatitis C Antibody (04/12/2024) Pathologist [facility] Hep C Virus Ab negative Blood Historical Provider LAB BLOOD ORDERABLES Lena l Result from Last 3 Months or Most Recently Relevant to Health Maintenance Insurance [facility] Care Teams Roof Designer Relationship Specialty Start Date End Date Norma Friedman APRN [address] [place] G[address] RAFAELA APPIAH [address] PCP - General Family Medicine 05/14/24
--- OUTSIDE RECORDS SUMMARY | 2024-10-18 11:12 | XMS_ITS | Encounter Summary ---
[facility] Address [address] [place] [address] Care Team Providers Care Land Reclamation Specialist Name Role Phone Norma Friedman APRN Primary Care Provider + [phone] Encounter Details Date Type Department Care Team (Late st Contact Info) Description 08/19/2024 Telephone [facility] O[facility] [address] [place] [address] Jacey Mathews, MIG TIG WELDER [address] [facility] [address] [place] [address] Social History Tobacco Use Types Packs/Day Years Used Date Smoking Tobacco: Never Smokeless Tobacco: Never Alcohol Use Standard Drinks/Week Comments Never 0 (1 standard drink = 0.6 oz pur e alcohol) [facility] Utilities Answer Date Recorded In the past 12 months has [employer], [employer], oil, or water [employer] threatened to shut off services in your [...] [facility] of Occupat ional [facility] - Occupational Stress Questionnaire Answer Date Recorded [...] Office Visit [facility] GASTROENTEROLOGY [address] [address] Robbin Escalante MD [address] [address] documented as of this encounter Visit Diagnoses Not on filedocumented in this encounter Additional Health Concerns Assessment Noted Time PHQ-2 Depression Total Score: 2 05/28/19 25 4:39 PM EDT documented as of this encounter Care Teams Land Reclamation Specialist Relationship Specialty Start Date End Date Norma Friedman APRN [address] [place] G[address] RAFAEL[place] APPIAH [address] PCP - General Family Medicine 05/14/24 documented as of this encounter
--- OUTSIDE RECORDS SUMMARY | 2024-10-18 11:12 | XMS_ITS | Encounter Summary ---
[facility] Address [address] [place] [address] Care Team Providers Care Fabrication Technician Name Role Phone Norma Friedman APRN Primary Care Provider + [phone] Encounter Details Date Type Department Care Team (Latest Contact Info) Description 08/29/2024 Travel Social History Tobacco Use Types Packs/Day Years Used Date Smoking Tobacco: Never Smokeless Tobacco: Never Alcohol Use Standard Drinks/Week Comments Never 0 (1 standard drink = 0.6 oz pur e alcohol) [facility] Utilities Answer Date Recorded In the past 12 months has [employer] electric, gas, oil, or water company threatened [...] hard at all 05/28/2024 [facility] of Occupat ional Health - Occupational Stress [...] Office Visit [facility] GASTROENTEROLOGY [address] [facility] [address] [place] [id number] Robbin Escalante MD [address] [facility] [address] [place] [address] documented as of this encounter Visit Diagnoses Not on filedocumented in this encounter Additional Health Concerns Assessment Noted Time PHQ-2 Depression Total Score: 2 05/28/19 25 4:39 PM EDT documented as of this encounter Care Teams Fabrication Technician Relationship Specialty Start Date End Date Norma Friedman APRN [address] [place] G[address] [place]FA[place] APPIA[place] [address] PCP - General Family Medicine 05/14/24 documented as of this encounter
--- OUTSIDE RECORDS SUMMARY | 2024-10-18 11:12 | XMS_ITS ---
Author Organization [facility] Address [address] [place] [address] Care Team Providers Care Blockers Skiver Name Role Phone Norma Friedman APRN Primary Care Provider Motherhood Connection Status:Engaged (Active) Start date:05/23/2024 Enrollment date:05/23/2024 Case Team Name Relationship Phone Bindu Castellon RN Nurse Navigator Christy Zabala RN(Responsible Staff) Nurse Navig ator Continued Care and Services Coordination
--- OUTSIDE RECORDS SUMMARY | 2024-10-18 11:12 | XMS_ITS | Encounter Summary ---
Author Organization Healthcare Address [address] [place] [address] Care Team Providers Care Telesales Manager Name Role Phone Norma Friedman WATCH ADJUSTER Primary Care Provider +1- [phone] Lizz Trinh RN Unavailable Unavailable Encounter Details [...] more drinks on one occasion? Never 09/23/2024 [place] Depression Scale Answer Date Recorded [place] Depression Scale Total 0 09/23/2024 The thought [...] Description 10/24/2024 8:00 AM EDT Office Visit [facility] [place] [address] [facility], [address] [place] [address] Nneka Block MD [address] [place] [address] 10/24/2024 9:45 AM EDT Routine Medical Office Building Obstetrics and Gynecology [address] [facility], [address] [place] [address] Nneka Gipson MD [address] [place] [address] 12/25/2024 1:00 PM EST Office Visit [facility]ph[facility], Bone & Mineral Metabolism [address] [facility], [address] [place] [address] documented as of this encounter Visit Diagnoses Not on filedocumented in this encounter Additional Health Concerns Assessment Noted Time A fall risk assessment has been complete d for the patient 09/26/2024 8:15 AM EDT A Body Mass Index follow-up plan has been documented for the patient 09/27/2024 10:22 AM EDT documented as of this encounter Care Teams Telesales Manager Relationship Specialty Start Date End Date Norma Friedman APRN [address] [place] [address] PCP - General 09/23/24 Lizz Trinh, RN [facility] Registered Nurse Cardiology 09/26/24 documented as of this encounter
--- OUTSIDE RECORDS SUMMARY | 2024-10-18 11:12 | XMS_ITS | Encounter Summary ---
[facility] [address] [place] [id number] Care Team Providers Care Record Systems Analyst Name Role Phone Ivyashlyn Norma FERNÁNDEZ Primary Care Provider + [phone] Encounter Details Date Type Department Care Team (Late st Contact Info) Description 09/02/2024 Telephone [facility] OBGYN [address] [address] Staci Jain MD [address] [place] [phone] Social History Tobacco Use Types Packs/Day Years Used Date Smoking Tobacco: Never Smokeless Tobacco: Never Alcohol Use Standard Drinks/Week Comments Never 0 (1 standard drink = 0.6 oz pur e alcohol) [facility] Utilities Answer Date Recorded In the past 12 months has [employer], oil, or water [employer] threatened to shut off services in your [...] and heating? Not hard at all 05/28/2024 [facility] of Occupat ional Health - Occupational [...] She has decided to transfer care to [facility] as it iscloser to her like 15 min away. She wants you (Dr. Jain) to know this has nothing to you but rather the nurses and environmental protection inspector doctor did not relay the labs to you in a faster fashion. She said you can call her if you want and she is not angry. Dr. Jain was notified. * Telephone Encounter - Frederick Gruber RN - 09/02/2024 3:10 PM EDT Dianwobat message sent to the pt regarding outpt infusion apt tomorrow at [facility]. documented in this encounter Plan of Treatment Upcoming Encounters Date Type Department Care Team (Late st Contact Info) Description 01/20/2025 3:30 PM EST Office Visit [facility] GASTROENTEROLOGY [address] [place] [address] [place] [address] Robbin Escalante MD [address] [facility] [address] [place] [address] documented as of this encounter Visit Diagnoses Not on filedocumented in this encounter Additional Health Concerns Assessment Noted Time PHQ-2 Depression Total Score: 2 05/28/19 25 4:39 PM EDT documented as of this encounter Care Teams Record Systems Analyst Relationship Specialty Start Date End Date Norma Friedman APRN [address] [place] [address] [place] [address] PCP - General Family Medicine 05/14/24 documented as of this encounter
--- OUTSIDE RECORDS SUMMARY | 2024-10-18 11:12 | XMS_ITS | Encounter Summary ---
Author Organization Healthcare Address [address] [place] [address] Care Team Providers Care Instrument Room Technician Name Role Phone Norma Friedman JOLENE Primary Care Provider +1- [phone] Lizz Trinh RN Unavailable Unavailable Encounter Details Date Type Department Care Team (Late st Contact Info) Description 10/16/2024 Results Follow-Up [facility] [place] [address] [facility] [place] [address] Nneka Block MD [address] [place] [address] Social History Tobacco Use Types [...] more drinks on one occasion? Never 09/23/2024 [place] Depression Scale Answer Date Recorded [place] Depression Scale Total 0 09/23/2024 The [...] Description 10/24/2024 8:00 AM EDT Office Visit [facility] [place] [address] [facility], [address] [place] [address] Nneka Block MD [address] [place] [address] 10/24/2024 9:45 AM EDT Routine Medical Office Building Obstetrics and Gynecology [address] [facility], [address] [place] [address] Nneka Gipson MD [address] [place] [address] 12/25/2024 1:00 PM EST Office Visit [facility], Bone [facility] Mineral Metabolism [address] [facility], [address] [place] [address] documented as of this encounter [...] documented as of this encounter Care Teams Instrument Room Technician Relationship Specialty Start Date End Date Norma Friedman APRN [address] [place] [address] PCP - General 09/23/24 Lizz Trinh, RN [facility] Registered Nurse Cardiology 09/26/24 documented as of this encounter
--- OUTSIDE RECORDS SUMMARY | 2024-10-18 11:12 | XMS_ITS | Encounter Summary ---
[facility] [address] [place] [id number] Care Team Providers Care Blade Grader Operator Name Role Phone Ivyashlyn Norma FERNÁNDEZ Primary Care Provider + [phone] Encounter Details Date Type Department Care Team (Late st Contact Info) Description 08/28/2024 Telephone [facility] OBGYN [address] [address] Staci Jain MD [address] [place] [phone] Social History Tobacco Use Types Packs/Day Years Used Date Smoking Tobacco: Never Smokeless Tobacco: Never Alcohol Use Standard Drinks/Week Comments Never 0 (1 standard drink = 0.6 oz pur e alcohol) [facility] Utilities Answer Date Recorded In the past 12 months has [employer], gas, oil, or water [employer] threatened to shut off services in your [...] [facility] of Occupat ional Health [...] sit with a family member admitted to [facility] today and does not know if she can make it back for labs (BMP). She does have an appt in [facility] at 10 am tomorrow. Advisedthat it would [...] states she was supposed to come into [place] office today to have labs drawn however sheis currently hung up at [facility] is wondering if she could just have labs drawn there? documented in this encounter Plan of Treatment Upcoming Encounters Date Type Department Care Team (Late st Contact Info) Description 01/20/2025 3:30 PM EST Office Visit [facility] GASTROENTEROLOGY [address] [facility] [address] [place] [address] Robbin Escalante MD [address] [facility] [address] [place] [address] documented as of this encounter Visit Diagnoses Not on filedocumented in this encounter Additional Health Concerns Assessment Noted Time PHQ-2 Depression Total Score: 2 05/28/19 25 4:39 PM EDT documented as of this encounter Care Teams Blade Grader Operator Relationship Specialty Start Date End Date Norma Friedman APRN [address] [place] [address] [place] [address] PCP - General Family Medicine 05/14/24 documented as of this encounter
--- OUTSIDE RECORDS SUMMARY | 2024-10-18 11:12 | XMS_ITS | Encounter Summary ---
[facility] [address] [place] [id number] Care Team Providers Care Framing And Hanging Name Role Phone IvyKade goldbergjoseseven JOLENE Primary Care Provider + [phone] Encounter Details Date Type Department Care Team (Late st Contact Info) Description 09/03/2024 Results Follow-Up [facility] OBGYN [address] [place] [address] Staci Jain MD 1700 [facility] [address] [place] [address] Social History Tobacco Use Types Packs/Day Years Used Date Smoking Tobacco: Never Smokeless Tobacco: Never Alcohol Use Standard Drinks/Week Comments Never 0 (1 standard drink = 0.6 oz pur e alcohol) [facility] Utilities Answer Date Recorded In the past 12 months has [employer], gas, oil, or water [employer] threatened to shut off services in [...] Visit [facility] GASTROENTEROLOGY [address] [address] Robbin Escalante MD [address] [address] documented as of this encounter Visit Diagnoses Not on filedocumented in this encounter Additional Health Concerns Assessment Noted Time PHQ-2 Depression Total Score: 2 05/28/19 4:39 PM EDT documented as of this encounter Care Teams Framing And Hanging Relationship Specialty Start Date End Date Norma Friedman APRN [address] [place] [address] [place] [address] PCP - General Family Medicine 05/14/24 documented as of this encounter
--- OUTSIDE RECORDS SUMMARY | 2024-10-18 11:12 | XMS_ITS | Encounter Summary ---
[facility] [address] [place] [address] Care Team Providers Care Peanut Blancher Name Role Phone Norma Friedman APRN Primary Care Provider + [phone] Encounter Details Date Type Department Care Team (Latest Contact Info) Description 08/19/2024 Travel Social History Tobacco Use Types Packs/Day Years Used Date Smoking Tobacco: Never Smokeless Tobacco: Never Alcohol Use Standard Drinks/Week Comments Never 0 (1 standard drink = 0.6 oz pur e alcohol) [facility] Utilities Answer Date Recorded In the past 12 months has [employer] electric, gas, oil, or water company [...] Not hard at all 05/28/2024 [facility] [place] of Occupat ional Health - Occupational Stress [...] 2:34 PM EDT Nneka Cross RN * [place] Suicide Severity Rating Scale (Screener/Recent Self-Report) Question Answer Date of Assessment Author 6. Suicidal Behavior (Lifetime) No 2:34 PM EDT Nneka Cross RN documented as of this encounter Plan of Treatment Upcoming Encounters Date Type Department Care Team (Late st Contact Info) Description 01/20/2025 3:30 PM EST Office Visit [facility] GASTROENTEROLOGY [address] [address] Robbin Escalante MD [address] [address] documented as of this encounter Visit Diagnoses Not on filedocumented in this encounter Additional Health Concerns Assessment Noted Time PHQ-2 Depression Total Score: 2 05/28/19 25 4:39 PM EDT documented as of this encounter Care Teams Peanut Blancher Relationship Specialty Start Date End Date Norma Friedman APRN [address] [place] [address] [place] [address] PCP - General Family Medicine 05/14/24 documented as of this encounter
--- OUTSIDE RECORDS SUMMARY | 2024-10-18 11:12 | XMS_ITS | Encounter Summary ---
Author Organization Healthcare Address [address] [place] [address] Care Team Providers Care Inspector Packer Glass Container Name Role Phone Norma Friedman JOLENE Primary Care Provider +1- [phone] Lizz Trinh RN Unavailable Unavailable Encounter Details Date Type Department Care Team ([facility] Contact Info) Description 10/17/2024 Telephone Medical Office Building Obstetrics and Gynecology [address] [facility], [address] [place] [address] Tracy Segovia, RN [facility] OB ULTRASOUND CLINIC 1st [facility] Social History Tobacco Use Types Packs/Day Years [...] more drinks on one occasion? Never 09/23/2024 [place] Depression Scale Answer Date Recorded [place] Depression Scale Total 0 09/23/2024 The thought [...] Miscellaneous Notes * Telephone Encounter - Tracy Segovia, RN - 10/17/2024 3:00 PM EDT Received call from Brandee at Dr. Ramon's office in [place], she was calling because Whitney is notscheduled for infusion at their clinic on 10/18/24, her next infusion is on 10/21/24. Brandee shared that she reached out to the patient to discuss and to schedule her for a NST on 10/18/24. Whitney reports that Brandee stated that she did not refuse extended monitoring, she said she couldn't go because she had other things to do and that she was under the impression that is wasn't a big deal. Whitney then reported that she was experiencing chest pain and was advised to present to ED for evaluation. I contacted Brenda OB batt packer with report on expectant patient. Message sent to Dr. Wheeler with patient update. documented in this encounter Plan of Treatment Upcoming Encounters Date Type Department Care Team (Late st Contact Info) Description 10/24/2024 8:00 AM EDT Office Visit [facility] [place] [address] [facility], [address] [place] [address] Nneka Block MD [address] [place] [address] 10/24/2024 9:45 AM EDT Routine Medical Office Building Obstetrics and Gynecology [address] [facility], [address] [place] [address] Nneka Gipson MD [address] [place] [address] 12/25/2024 1:00 PM EST Office Visit [facility] Nephrology, Bone & Mineral Metabolism [address] [facility], [address] [place] [address] documented as of this encounter Visit Diagnoses Not on filedocumented in this encounter Additional Health Concerns Assessment Noted Time A fall risk assessment has been complete d for the patient 09/26/2024 8:15 AM EDT A Body Mass Index follow-up plan has been documented for the patient 09/27/2024 10:22 AM EDT documented as of this encounter Care Teams Inspector Packer [employer] Container Relationship Specialty Start Date End Date Norma Friedman APRN [address] [place] [address] PCP - General 09/23/24 Lizz Trinh, RN [facility] Registered Nurse Cardiology 09/26/24 documented as of this encounter
--- OUTSIDE RECORDS SUMMARY | 2024-10-18 11:12 | XMS_ITS | Encounter Summary ---
[facility] [address] [place] [address] Care Team Providers Care Rehabilitation Physician Name Role Phone Elder Norma FERNÁNDEZ Primary Care Provider + [phone] Encounter Details Date Type Department Care Team (Late st Contact Info) Description 08/27/2024 Telephone [facility] OBGYN [address] [place] [address] Staci Jain MD 17[address] [facility] [address] [place] [address] Social History Tobacco Use Types Packs/Day Years Used Date Smoking Tobacco: Never Smokeless Tobacco: Never Alcohol Use Standard Drinks/Week Comments Never 0 (1 standard drink = 0.6 oz pur e alcohol) [facility] Utilities Answer Date Recorded In the past 12 months has [employer], oil, or water [employer] threatened to shut off services in your [...] and heating? Not hard at all 05/28/2024 [facility] of Occupat ional Health - Occupational [...] GED or equivalent No 05/28/2024 Preferred Language Pashto 05/28/2024 PHQ-2 Answer Date Recorded Patient Health [...] Office Visit [facility] GASTROENTEROLOGY [address] [address] Robbin Escalante MD [address] [address] documented as of this encounter Visit Diagnoses Diagnosis History of hypokalemia- Primary documented in this encounter Additional Health Concerns Assessment Noted Time PHQ-2 Depression Total Score: 2 05/28/19 25 4:39 PM EDT documented as of this encounter Care Teams Rehabilitation Physician Relationship Specialty Start Date End Date Norma Friedman APRN [address] [place] [address] [place] [address] PCP - General Family Medicine 05/14/24 documented as of this encounter
--- OUTSIDE RECORDS SUMMARY | 2024-10-18 11:12 | XMS_ITS | Encounter Summary ---
Author Organization Healthcare Address [address] [place] [address] Care Team Providers Care Reject Opener And Filler Name Role Phone Norma Friedman DIRECTOR OF INCOME TAX Primary Care Provider +1- [phone] Lizz Trinh RN Unavailable Unavailable Encounter Details Date Type Department Care Team (Latest Contact Info) Description 10/17/2024 Travel Social History Tobacco Use Types Packs/Day [...] more drinks on one occasion? Never 09/23/2024 [place] Depression Scale Answer Date Recorded [place] Depression Scale Total 0 09/23/2024 The [...] 10/24/2024 8:00 AM EDT Office Visit [facility] [place] [address] [facility], [address] [place] [address] Nneka Block MD [address] [place] [address] 10/24/2024 9:45 AM EDT Routine Medical Office Building Obstetrics and Gynecology [address] [facility], [address] [place] [address] Nneka Gipson MD [address] [place] [address] 12/25/2024 1:00 PM EST Office Visit [facility] [place] [facility]phrology, Bone & Mineral Metabolism [address] [facility], [address] [place] [address] documented as of this encounter [...] documented as of this encounter Care Teams Reject Opener And Filler Relationship Specialty Start Date End Date Norma Friedman APRN [address] [place] [address] PCP - General 09/23/24 Lizz Trinh, RN [facility] Registered Nurse Cardiology 09/26/24 documented as of this encounter
--- OUTSIDE RECORDS SUMMARY | 2024-10-18 11:12 | XMS_ITS ---
Author Organization [facility] Address [address] [place] [address] Care Team Providers Care Client Specialist Name Role Phone Unavailable Primary Care Provider Unavailabl e Transplant Episode Kidney Potential Donor [facility] ([place], [place]) - [facility] Referred on 05/03/2022 Marked as Deferred on 05/04/2022 Reason: Other Kidney CoordinatorNadine Augustin R.N. Phone: N/A Fax: N/A Email: N/A Care Team Name Role Phone Fax Email Nadine Augustin R.N. Kidney Coordinator N/A N/A N/A Events Pre-Donation Referred: 05/03/2022
--- OUTSIDE RECORDS SUMMARY | 2024-10-18 11:13 | XMS_ITS | Encounter Summary ---
Author Organization Healthcare Address [address] [place] [address] Care Team Providers Care Clinical Statistical Programmer Name Role Phone Norma Friedman TIMBER INSPECTOR Primary Care Provider +1- [phone] Lizz Trinh RN Unavailable Unavailable Encounter Details Date Type Department Care Team (Latest Contact Info) Description 10/18/2024 Travel Social History Tobacco Use Types Packs/Day [...] more drinks on one occasion? Never 09/23/2024 [place] Depression Scale Answer Date Recorded [place] Depression Scale Total 0 09/23/2024 The thought [...] Description 10/24/2024 8:00 AM EDT Office Visit [facility] [place] [address] [facility], [address] [place] [address] Nneka Block MD [address] [place] [address] 10/24/2024 9:45 AM EDT Routine Medical Office Building Obstetrics and Gynecology [address] [facility], [address] [place] [address] Nneka Gipson MD [address] [place] [address] 12/25/2024 1:00 PM EST Office Visit Professional [facility] [place] Nephrology, Bone & Mineral Metabolism [address] [facility], [address] [place] [address] documented as of this encounter Visit Diagnoses Not on filedocumented in this encounter Additional Health Concerns Infection Onset Date Last Indicated Resolved Time COVID-19 Rule-Out 10/17/2024 10/17/2024 Assessment Noted Time A fall risk assessment has been complete d for the patient 09/26/2024 8:15 AM EDT A Body Mass Index follow-up plan has been documented for the patient 09/27/2024 10:22 AM EDT documented as of this encounter Care Teams Clinical Statistical Programmer Relationship Specialty Start Date End Date Norma Friedman APRN [address] [place] [address] PCP - General 09/23/24 Lizz Trinh, RN [facility] Registered Nurse Cardiology 09/26/24 documented as of this encounter
--- OUTSIDE RECORDS SUMMARY | 2024-10-18 11:13 | XMS_ITS | Encounter Summary ---
[facility] [address] [place] [id number] Care Team Providers Care Electron Gun Inspector Name Role Phone Elder Norma FERNÁNDEZ Primary Care Provider + [phone] Encounter Details Date Type Department Care Team (Late st Contact Info) Description 07/07/2024 Results Follow-Up [facility] OBGYN [address] [place] [address] [place] [phone] Kelly Delgado APRN [address] [facility] [address] [place] [address] Social History Tobacco Use Types Packs/Day Years Used Date Smoking Tobacco: Never Smokeless Tobacco: Never Alcohol Use Standard Drinks/Week Comments Never 0 (1 standard drink = 0.6 oz pur e alcohol) [facility] Utilities Answer Date Recorded In the past 12 months has [employer], gas, oil, or water [employer] threatened to shut off services in your [...] Office Visit [facility] [address] [facility] [address] Robbin Escalante MD [address] [address] documented as of this encounter Visit Diagnoses Not on filedocumented in this encounter Additional Health Concerns Assessment Noted Time PHQ-2 Depression Total Score: 2 05/28/19 25 4:39 PM EDT documented as of this encounter Care Teams Electron Gun Inspector Relationship Specialty Start Date End Date Norma Friedman APRN [address] [place] [address] [place] [address] PCP - General Family Medicine 05/14/24 documented as of this encounter
--- OUTSIDE RECORDS SUMMARY | 2024-10-18 11:14 | XMS_ITS | Clinical Summary ---
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 09/03/19 25 025 Discontinued(E ntered in Error) thiamine (Vitamin B-1) 100 MG tablet Take 1 tablet by mouth 1 time each day. 09/02/19 25 Suspended FeroSul 325 (65 Fe) MG tablet Take 1 tablet by mouth daily. 09/13/19 25 Suspended metoprolol succinate XL (Toprol XL) 25 MG 24 hr tablet Take 1 tablet by mouth 2 times a day. Do not crush or chew. 60 tablet 1 09/24/19 25 025 Discontinued metoprolol succinate XL (Toprol XL) 25 MG 24 hr tablet Take 0.5 tablets by mouth 2 times a day. Do not crush or chew. 30 tablet 1 09/24/19 25 025 Discontinued Viqyebgg-Xbg-Zy-F A ( 1 + IRON PO) 025 Discontinued potassium chloride (Klor-Con) 20 MEQ packet Take twice a day for 3 days each week. Weekly labs 09/02/19 25 025 Discontinued(E ntered in Error) pantoprazole (Protonix) 40 MG EC tablet 12/14/19 24 025 Discontinued(E ntered in Error) ondansetron ODT (Zofran-ODT) 4 MG disintegrating tablet DISSOLVE 1 TABLET IN MOUTH EVERY 8 HOURS NEEDED FOR NAUSEA AND VOMITING FOR 4 DAYS 025 Discontinued(E ntered in Error) omeprazole (PriLOSEC) [address] capsule Take 1 capsule by mouth 1 time each day. 025 Discontinued(E ntered in Error) potassium chloride CR (K-Tab) 20 MEQ ER tablet Take 2 tablets by mouth every 4 hours. Do not crush, chew, or split. Suspended magnesium oxide (Mag-Ox) 400 (240 Mg) MG tablet Take 2 tablets by mouth 2 times a day. 10/05/19 25 Suspended polyethylene glycol (Miralax) 17 GM/SCOOP powder Take 17 g by mouth 2 times a day. 10/05/19 25 Suspended promethazine (Phenergan) 12.5 MG tablet Take 1 tablet by mouth 3 times a day. 09/28/19 25 Suspended ursodiol (Actigall) 300 MG capsule Take 1 capsule by mouth 2 times a day. 10/12/19 25 Suspended potassium chloride 20 MEQ/100ML IVPB Infuse 400 mL into a venous catheter every other day. Given 80-100 mEq every other day. Suspended Active Problems Problem Noted Date Diagnosed Date Electrolyte abnormality 10/17/2024 Hypokalemia 09/25/2024 Estimated Date of Delivery Comme nts Yes 12/01/2024 Date entered eliel or to episode creation Encounters Date Type Department Care Team Description 10/18/2024 11:59 PM EDT Anesthesia Event [facility] [address] [place] [address] Everett Farrar MD 10/18/2024 Travel 10/17/2024 3:47 PM EDT - Present Hospital Encounter [facility] [address] [place] [address] Hilton Montelongo MD 10/17/2024 10:30 AM EDT - 10/17/2024 3:46 PM EDT Hospital Encounter [facility] [address] [facility], [address] [place] [address] NST (non-stress test) nonreactive Discharge Disposition: Home or Self Care 10/17/2024 9:15 AM EDT Routine [facility] [address] [facility], [address] [place] [address] Dilip Gipson MD NST (non-stress test) nonreactive (Primary Dx); Supervision of high risk , antepartum 10/17/2024 Telephone [facility] [address] [facility], [address] [place] [address] Tracy Segovia, RN 10/17/2024 Telephone [facility] Obstetrics and Gynecology [address] [facility] [address], [address] [place] [address] Tracy Segovia, RN [facility] Care coordiantion 10/17/2024 Travel 10/16/2024 Results Follow-Up [facility] [place] [address] [facility] [place] [address] Dilip Vasquez MD 09/26/2024 9:06 AM EDT - 09/26/2024 11:59 PM EDT Hospital Encounter [facility] Cardiac Diagnostic Testing [facility] Echo Lab [address] [facility], [address] [place] [address] Palpitations; Syncope and collapse Discharge Disposition: Home or Self Care 09/26/2024 8:00 AM EDT Office Visit [facility] [place] [address], [address] [place] [address] Dilip Vasquez MD Syncope and collapse (Primary Dx); Atrial fibrillation, unspecified type (CMS/HCC); Palpitations 09/26/2024 Travel 09/25/2024 2:20 PM EDT Office Visit [facility] Nephrology, Bone & Mineral Metabolism [address] [facility], [address] [place] [address] Bill Patrick MD Hypokalemia (Primary Dx) 09/25/2024 Travel 09/23/2024 10:00 AM EDT Office Visit [facility] [address] [facility], [address] [place] [address] Liborio Weller MD Supervision of high risk , antepartum (Primary Dx); Cardiac arrhythmia, unspecified cardiac arrhythmia type 09/23/2024 Travel 09/17/2024 Telephone [facility] Nephrology, Bone [facility] Mineral Metabolism [address], [address] [place] [address] Sherley Gold CNA 09/17/2024 Telephone [facility] Obstetrics [facility] Gynecology [address], [address] [place] [address] Josefina Shay RN 09/14/2024 Telephone [facility] Obstetrics & Gynecology [address] [place] [address] Susi Wren MD 07/22/2024 [facility] [address] [place] [address] Staci Jain MD History of proteinuria syndrome (Primary Dx); care, subsequent , second trimester 07/22/2024 [facility] [address] [place] [address] Sandy Cardenas MD from Last 3 Months [...] Mass Index 25.35 10/17/2024 9:08 AM EDT Plan of Treatment Upcoming Encounters Date Type Department Care Team (Late st Contact Info) Description 10/24/2024 8:00 AM EDT Office Visit [facility] [place] [address], [address] [place] [address] Dilip Vasquez MD [address] [place] [address] 10/24/2024 9:45 AM EDT Routine [facility] Obstetrics and Gynecology [address], [address] [place] [address] Dilip Gipson MD [address] [place] [address] 12/25/2024 1:00 PM EST Office Visit [facility] Nephrology, Bone & Mineral Metabolism [address] , [address] [place] [address] Health Maintenance Due Date Last Done Comments [facility]-Infant/Child/Adol SDOH Screenings 1991 [facility]-Varicella Vaccines (1 of 2 - 13+ 2-dose series) 2004 [facility]- SDOH Screenings 2009 [facility]-Adult SDOH Screenings 2009 [facility]-Hepatitis B Vaccines (1 of 3 - 19+ 3-dose series) 2010 [facility]-Pap Smear 2012 [facility]-Cervical Cancer Screening 2021 [facility]-HPV/Cotest 2021 [id number] Vaccine (2 - 2024- season) 2024 05/04/2022 [...] patient's age to complete this topic Procedures * The patient is currently admitted. [...] BLOOD STAT Add-on 10/18/2024 3:38 AM EDT BLOOD GAS PANEL, VENOUS Routine 10/18/2024 3:38 AM EDT PHOSPHORUS, PLASMA Timed 10/18/2024 3: 38 AM EDT MAGNESIUM, PLASMA Timed 10/18/2024 3:3 8 AM EDT BASIC METABOLIC PANEL, PLASMA Timed 10/18/2024 3:38 AM EDT TROPONIN T, HIGH SENSITIVITY, 2 HOUR, PLASMA Timed 10/18/2024 1:12 AM EDT GROUP A STREPTOCOCCUS BY PCR Routine 10/17/2024 11:25 PM EDT ECG ADULT STAT 10/17/2024 10:50 PM EDT MAGNESIUM, PLASMA STAT Add-on 10/17/2024 10: 41 PM EDT TROPONIN T, HIGH SENSITIVITY, 0 HOUR, PLASMA, REFLEX TO 2 HOUR STAT 10/17/2024 10:41 PM EDT BLOOD GAS PANEL, VENOUS STAT 10/17/2024 10:41 PM EDT COMPREHENSIVE METABOLIC PANEL, PLASMA STAT 10/17/2024 10:41 PM EDT CBC W/O DIFFERENTIAL STAT 10/17/2024 10:41 PM EDT NASOPHARYNGEAL RESPIRATORY [...] ECG ADULT STAT 10/17/2024 4:17 PM EDT URIC ACID, PLASMA Add-On 10/17/2024 4:0 5 PM EDT LACTATE DEHYDROGENASE, PLASMA Add-On 10/17/2024 4:05 PM EDT PHOSPHORUS, PLASMA STAT 10/17/2024 4: 05 PM EDT MAGNESIUM, PLASMA STAT 10/17/2024 4:0 5 PM EDT N-TERMINAL PROBNP, PLASMA STAT 10/17/2024 4:05 PM EDT TROPONIN T, HIGH SENSITIVITY, 0 HOUR, PLASMA, REFLEX TO 2 HOUR STAT 10/17/2024 4:05 PM EDT D DIMER, QUANTITATIVE STAT 10/17/2024 4:05 PM EDT COMPREHENSIVE METABOLIC PANEL, PLASMA STAT 10/17/2024 4:05 PM EDT CBC WITH AUTO DIFFERENTIAL STAT 10/17/2024 4:05 PM EDT OB US DETAIL ANATOMY Routine 10/17/2024 1:34 PM EDT NST (non-stress test) nonreactive POCT URINALYSIS DIPSTICK Routine 10/17/2024 9:14 AM EDT Supervision of high risk , antepartum CHLORIDE, RANDOM URINE Routine 10:07 AM EDT [...] Recently Relevant to Health Maintenance Results * POCT glucose meter (10/18/2024 9:42 AM EDT) POCT Glucose 78 74 - 99 mg/dL 10/18/2024 9:52 AM EDT [facility] Comment:Accuracy of a glucos e result [...] Comment 10/18/2024 9:52 AM EDT [facility] Leaf Conditioner ID Tex Harman 025 9:52 AM EDT [facility] Device ID [id number] 10/18/2024 9:52 AM EDT [facility] Specimen Type POC Capillary 10/18/2024 9:52 AM EDT [facility] Blood Capillary blood specimen / Unknown 10/18/2024 9:42 AM EDT 10/18/2024 9:52 AM EDT us Hilton Montelongo MD LAB POINT OF CARE TE ST DOCKED DEVICE UNSOLICITED RESULTS Final Result Performing Organization Address City/[facility]/ZIP Co de Phone Number [facility] [address] [place] [address] * Phosphorus, Plasma (10/18/2024 9:14 AM EDT) Only the most recent of3 resultswithin the time period is included. Phosphorus, Plasma 3.2 2.5 - 4.5 mg/dL 10/18/2024 10:29 AM EDT [facility] Blood Venous blood specimen / Unknown Venipuncture / Unknown 10/18/2024 9:14 AM EDT 10/18/2024 9:36 AM EDT us Hilton Montelongo MD LAB BLOOD ORDERABLES Final Re sult [facility] [address] [place] [address] * (ABNORMAL) Magnesium (10/18/2024 9:14 AM EDT) Only the most recent of4 resultswithin the time period is included. Magnesium, Plasma 1.8(L) 1.9 - 2.4 mg/dL 10/18/2024 10:29 AM EDT [facility] Blood Venous blood specimen / Unknown Venipuncture / Unknown 10/18/2024 9:14 AM EDT 10/18/2024 9:36 AM EDT us Hilton Montelongo MD LAB BLOOD ORDERABLES Final Re sult [facility] [address] [place] [address] * (ABNORMAL) Basic metabolic panel (10/18/2024 9:14 AM EDT) Only the most recent of2 resultswithin the time period is included. Glucose, Plasma 76 74 - 99 mg/dL 10/18/2024 10:29 AM EDT [facility] BUN, Plasma 9 7 - 21 mg/dL 10/18/2024 10:29 AM EDT [facility] Creatinine, Plasma 0.66 0.60 - 1.10 mg/dL 10/18/2024 10:29 AM EDT [facility] BUN/Creatinine Ratio 14 10/18/2024 10:29 AM EDT [facility] Sodium, Plasma 134(L) 136 - 145 mmol/L 10/18/2024 10:29 AM EDT [facility] Potassium, Plasma 3.2(L) 3.6 - 4.9 mmol/L 10/18/2024 10:29 AM EDT [facility] Chloride, Plasma 94(L) 97 - 107 mmol/L 10/18/2024 10:29 AM EDT [facility] CO2, Plasma 27 22 - 29 mmol/L 10/18/2024 10:29 AM EDT [facility] Anion Gap 13 6 - 16 mmol/L 10/18/2024 10:29 AM EDT [facility] Total Calcium, Plasma 8.2(L) 8.9 - 10.2 mg/dL 10/18/2024 10:29 AM EDT [facility] eGFRcr 119.0 mL/min/1.7 3m*2 10/18/2024 10:29 AM EDT [facility] Comment:Reported eGFRcr in m L/min/1.73m2 is based the CKD-EPI 2020 equation that does not use a race coefficient. Blood Venous blood specimen / Unknown Venipuncture / Unknown 10/18/2024 9:14 AM EDT 10/18/2024 9:36 AM EDT us Hilton Montelongo MD LAB BLOOD ORDERABLES Final Re sult Performing Organization Address City/[facility]/ZIP Co de Phone Number [facility] [address] [place] [address] * OB US Biophysical Profile wo Non Stress Testing (10/18/2024 8:50 AM EDT) Anatomical Region Laterality Modality Body Ultrasound 10/18/2024 8:28 AM EDT Impressions 10/18/2024 9:40 AM EDT The OB Ultrasound you requested has been resulted. Please navigate to the Imaging tab in [employer] for review. This message has been generated by the interface. Narrative Procedure Note Dilip Gipson MD - 10/18/2024 IMPRESSION: The OB Ultrasound you requested has been resulted. Please navigate to theImaging tab in [employer] for review. This message has been generated by theinterface. Result [facility] us Hilton Montelongo MD IMG OB US PROCEDURES Final Re sult * Protein, Random, Urine with Creatinine (10/18/2024 4:03 AM EDT) Only the most recent of2 resultswithin the time period is included. Protein, Urine 10 mg/dL 10/18/2024 4:44 AM EDT [facility] Creatinine, Urine 62 mg/dL 10/18/2024 4:44 AM EDT [facility] Protein/Creatin ine Ratio 0.2 mg/mg Creat 10/18/2024 4:44 AM EDT [facility] Urine Urine specimen obtained by clean catch procedure / Unknown Non-blood Collection / Unknown 10/18/2024 4:03 AM EDT 10/18/2024 4:11 AM EDT Result [facility] us Hilton Montelongo MD LAB URINE ORDERABLES Final Re sult [facility] [address] [place] [address] * (ABNORMAL) Ionized calcium, whole blood (10/18/2024 3:38 AM EDT) Ionized Calcium, Whole Blood 4.3(L) 4.6 - 5.1 mg/dL LAB HEMATOLOGY METHOD 10/18/2024 5:42 AM EDT [facility] Blood Venous blood specimen / Unknown Venipuncture / Unknown 10/18/2024 3:38 AM EDT 10/18/2024 3:48 AM EDT us Hilton Montelongo MD LAB BLOOD ORDERABLES Final Re sult [facility] [address] [place] [address] * (ABNORMAL) Blood gas panel, venous (10/18/2024 3:38 AM EDT) Only the most recent of2 resultswithin the time period is included. pH, Venous 7.47(H) 7.32 - 7.43 LAB HEMATOLOGY METHOD 10/18/2024 3:50 AM EDT [facility] pCO2, Venous 44 37 - 52 mmHg LAB HEMATOLOGY METHOD 10/18/2024 3:50 AM EDT [facility] pO2, Venous 115(H) 25 - 40 mmHg LAB HEMATOLOGY METHOD 10/18/2024 3:50 AM EDT [facility] SO2, Measured, Venous 100(H) 65 - 80 % LAB HEMATOLOGY METHOD 10/18/2024 3:50 AM EDT [facility] Base Excess, Venous 7.1(H) -2.0 - 3.0 mmol/L LAB HEMATOLOGY METHOD 10/18/2024 3:50 AM EDT [facility] Bicarbonate, Calculated, Venous 32(H) 22 - 26 mmol/L LAB HEMATOLOGY METHOD 10/18/2024 3:50 AM EDT [facility] Hematocrit, Whole Blood 27.5(L) 34.0 - 45.0 % LAB HEMATOLOGY METHOD 10/18/2024 3:50 AM EDT [facility] Sodium, Whole Blood 133(L) 136 - 145 mmol/L LAB HEMATOLOGY METHOD 10/18/2024 3:50 AM EDT [facility] Potassium, Whole Blood 2.8(L) 3.6 - 4.9 mmol/L LAB HEMATOLOGY METHOD 10/18/2024 3:50 AM EDT [facility] Chloride, Whole Blood 91(L) 97 - 107 mmol/L LAB HEMATOLOGY METHOD 10/18/2024 3:50 AM EDT [facility] Glucose, Whole Blood 72(L) 74 - 99 mg/dL LAB HEMATOLOGY METHOD 10/18/2024 3:50 AM EDT [facility] Lactate, Venous, Whole Blood 0.7 0.5 - 2.2 mmol/L LAB HEMATOLOGY METHOD 10/18/2024 3:50 AM EDT [facility] Ionized Calcium, Whole Blood 4.3(L) 4.6 - 5.1 mg/dL LAB HEMATOLOGY METHOD 10/18/2024 3:50 AM EDT [facility] Blood Venous blood specimen / Unknown Venipuncture / Unknown 10/18/2024 3:38 AM EDT 10/18/2024 3:48 AM EDT Hilton Montelongo MD LAB BLOOD ORDERABLES Final Re sult Performing Organization Address City/[facility]/ZIP Co de Phone Number [facility] [address] [place] [address] * Troponin T, High Sensitivity, 2 Hour, Plasma (10/18/2024 1:12 AM EDT) Only the most recent of2 resultswithin the time period is included. [facility] Troponin T, High Sensitivity, 2 Hour <6 <14 ng/L 10/18/2024 1:46 AM EDT [facility] Blood Venous blood specimen / Unknown Venipuncture / Unknown 10/18/2024 1:12 AM EDT 10/18/2024 1:18 AM EDT Hilton Montelongo MD LAB BLOOD ORDERABLES Final Re sult Performing Organization Address [facility]/ZIP Co de Phone Number [facility] [address] [place] [address] * Group A Streptococcus by PCR (10/17/2024 11:25 PM EDT) Pathologist [facility] Group A Streptococcus PCR Result Not Detected Not Detected 10/18/2024 12:38 AM EDT [facility] Swab Structure of peritonsillar tissue / Unknown Non-blood Collection / Unknown 10/17/2024 11:25 PM EDT 10/17/2024 11:49 PM EDT Hilton Montelongo MD LAB MICROBIOLOGY - GENERAL OR DERABLES Final Result Performing Organization Address [facility] Co de Phone Number [facility] [address] [place] [address] * Troponin T, High Sensitivity, 0 Hour Plasma, Reflex to 2 Hour (10/17/2024 10:41 PM EDT) Only the most recent of2 resultswithin the time period is included. Troponin T, High Sensitivity, 0 Hour <6 <14 ng/L 10/17/2024 11:16 PM EDT [facility] Blood Venous blood specimen / Unknown Venipuncture / Unknown 10/17/2024 10:41 PM EDT 10/17/2024 10:45 PM EDT us Hilton Montelongo MD LAB BLOOD ORDERABLES Final Re sult Performing Organization Address [facility] Co de Phone Number [facility] [address] [place] [address] * (ABNORMAL) CBC (10/17/2024 10:41 PM EDT) WBC Count 10.63(H) 3.70 - 10.30 10*3/uL LAB HEMATOLOGY METHOD 10/17/2024 10:53 PM EDT [facility] RBC Count 3.27(L) 3.90 - 5.20 10*6/uL LAB HEMATOLOGY METHOD 10/17/2024 10:53 PM EDT [facility] HGB 9.7(L) 11.2 - 15.7 g/dL LAB HEMATOLOGY METHOD 10/17/2024 10:53 PM EDT [facility] HCT 28.7(L) 34.0 - 45.0 % LAB HEMATOLOGY METHOD 10/17/2024 10:53 PM EDT [facility] Platelet Count 185 155 - 369 10*3/uL LAB HEMATOLOGY METHOD 10/17/2024 10:53 PM EDT [facility] MCV 88 79 - 98 fL LAB HEMATOLOGY METHOD 10/17/2024 10:53 PM EDT [facility] MCH 29.7 26.0 - 32.0 pg LAB HEMATOLOGY METHOD 10/17/2024 10:53 PM EDT [facility] MCHC 33.8 30.7 - 35.5 g/dL LAB HEMATOLOGY METHOD 10/17/2024 10:53 PM EDT [facility] RDW 15.8(H) 11.5 - 14.5 % LAB HEMATOLOGY METHOD 10/17/2024 10:53 PM EDT [facility] MPV 12.3 8.8 - 12.5 fL LAB HEMATOLOGY METHOD 10/17/2024 10:53 PM EDT [facility] nRBC 0.0 <=0.0 per 100 WBCs LAB HEMATOLOGY METHOD 10/17/2024 10:53 PM EDT [facility] Blood Venous blood specimen / Unknown Venipuncture / Unknown 10/17/2024 10:41 PM EDT 10/17/2024 10:45 PM EDT us Hilton Montelongo MD LAB BLOOD ORDERABLES Final Re sult [facility] [address] [place] [address] * (ABNORMAL) Comprehensive metabolic panel (10/17/2024 10:41 PM EDT) Only the most recent of2 resultswithin the time period is included. Glucose, Plasma 77 74 - 99 mg/dL 10/17/2024 11:16 PM EDT [facility] BUN, Plasma 9 7 - 21 mg/dL 10/17/2024 11:16 PM EDT [facility] Creatinine, Plasma 0.70 0.60 - 1.10 mg/dL 10/17/2024 11:16 PM EDT [facility] BUN/Creatinine Ratio 13 10/17/2024 11:16 PM EDT [facility] Sodium, Plasma 132(L) 136 - 145 mmol/L 10/17/2024 11:16 PM EDT [facility] Potassium, Plasma 2.5(LL) 3.6 - 4.9 mmol/L 10/17/2024 11:16 PM EDT [facility] Chloride, Plasma 88(L) 97 - 107 mmol/L 10/17/2024 11:16 PM EDT [facility] CO2, Plasma 27 22 - 29 mmol/L 10/17/2024 11:16 PM EDT [facility] Anion Gap 17(H) 6 - 16 mmol/L 10/17/2024 11:16 PM EDT [facility] Total Calcium, Plasma 8.4(L) 8.9 - 10.2 mg/dL 10/17/2024 11:16 PM EDT [facility] Total Protein 5.8(L) 6.3 - 7.9 g/dL 10/17/2024 11:16 PM EDT [facility] Albumin, Plasma 3.0(L) 3.5 - 5.2 g/dL 10/17/2024 11:16 PM EDT [facility] AST, Plasma 69(H) 10 - 35 U/L 10/17/2024 11:16 PM EDT [facility] ALT, Plasma 76(H) 10 - 35 U/L 10/17/2024 11:16 PM EDT [facility] Alkaline Phosphatase, Plasma 76 35 - 104 U/L 10/17/2024 11:16 PM EDT [facility] Total Bilirubin, Plasma 0.7 0.2 - 1.1 mg/dL 10/17/2024 11:16 PM EDT [facility] eGFRcr 117.3 mL/min/1.7 3m*2 10/17/2024 11:16 PM EDT [facility] Comment:Reported eGFRcr in m L/min/1.73m2 is based the CKD-EPI 2020 equation that does not use a race coefficient. Blood Venous blood specimen / Unknown Venipuncture / Unknown 10/17/2024 10:41 PM EDT 10/17/2024 10:45 PM EDT us Hilton Montelongo MD LAB BLOOD ORDERABLES Final Re sult Performing Organization Address City/[facility]/ZIP Co de Phone Number [facility] [address] [place] [address] * Nasopharyngeal Respiratory Panel (10/17/2024 8:50 PM EDT) [facility] Nasopharyngeal Respiratory PCR Interpretation Not Detected for all analytes Not Detected for all analytes 10/17/2024 11:23 PM EDT [facility] Swab Nasopharyngeal structure / Unknown Non-blood Collection / Unknown 10/17/2024 8:50 PM EDT 10/17/2024 9:28 PM EDT Narrative [facility] - 10/17/2024 11:23 PM [...] Respiratory PCR Panel is performed using the depict [employer] instrument. This test is FDA approved for use with Nasopharyngeal swabs only. This test is used for clinical purposes. It should not be regarded as investigational or for research. The [facility] is certified under the Clinical Laboratory Improvement Amendments of 1988 (CLIA-88) as qualified to perform high complexity clinical laboratory testing. us Hilton Montelongo MD LAB MICROBIOLOGY - GENERAL OR DERABLES Final Result Performing Organization Address City/[facility]/ZIP Co de Phone Number [facility] [address] [place] [address] * Treponema Pallidum (Syphilis) Antibodies with Reflex to RPR and RPR Titer (Those with NO known Syphilis) (10/17/2024 7:31 PM EDT) [facility] Syphilis Antibody (IgG+IgM) Nonreactive Nonreactive 10/17/2024 10:00 PM EDT [facility] Comment:Nonreactive. No sero logic evidence of syphilis. No follow-up necessary unless clinically indicated (e.g., early syphilis). Blood Venous blood specimen / Unknown Venipuncture / Unknown 10/17/2024 7:31 PM EDT 10/17/2024 7:44 PM EDT Hilton Montelongo MD LAB BLOOD ORDERABLES Final Re sult Performing Organization Address [facility] Co de Phone Number [facility] [address] [place] [address] * Type and Screen (10/17/2024 7:31 PM [...] ORDERABLE S Final Result Performing Organization Address [facility] Phone Number BLOOD BANK [address] [place] [address], [place] * XR Chest 1 View (10/17/2024 4:38 [...] XR PROCEDURES Fi nal Result * (ABNORMAL) D DIMER, QUANTITATIVE (10/17/2024 4:05 PM EDT) D Dimer, Quantitative 2.33(H) <0.50 ug/mL FEU LAB COAGULATION METHOD 10/17/2024 4:47 PM EDT [facility] Blood Venous blood specimen / Unknown Venipuncture / Unknown 10/17/2024 4:05 PM EDT 10/17/2024 4:19 PM EDT Narrative [facility] - 10/17/2024 4:47 PM [...] APRN, CNM LAB BLOOD ORDERABLES Final Result [facility] [address] [place] [address] * N-Terminal Probnp (10/17/2024 4:05 PM EDT) N-Terminal, PROBNP, Plasma 125 0 - 449 pg/mL 10/17/2024 5:07 PM EDT [facility] Blood Venous blood specimen / Unknown Venipuncture / Unknown 10/17/2024 4:05 PM EDT 10/17/2024 4:20 PM EDT Job Devine DIRECT SUPPORT STAFF, CNM LAB BLOOD ORDERABLES Final Result [facility] [address] [place] [address] * (ABNORMAL) CBC and Differential (10/17/2024 4:05 PM EDT) WBC Count 9.54 3.70 - 10.30 10*3/uL LAB HEMATOLOGY METHOD 10/17/2024 4:41 PM EDT [facility] RBC Count 3.40(L) 3.90 - 5.20 10*6/uL LAB HEMATOLOGY METHOD 10/17/2024 4:41 PM EDT [facility] HGB 10.2(L) 11.2 - 15.7 g/dL LAB HEMATOLOGY METHOD 10/17/2024 4:41 PM EDT [facility] HCT 29.7(L) 34.0 - 45.0 % LAB HEMATOLOGY METHOD 10/17/2024 4:41 PM EDT [facility] Platelet Count 177 155 - 369 10*3/uL LAB HEMATOLOGY METHOD 10/17/2024 4:41 PM EDT [facility] MCV 87 79 - 98 fL LAB HEMATOLOGY METHOD 10/17/2024 4:41 PM EDT [facility] MCH 30.0 26.0 - 32.0 pg LAB HEMATOLOGY METHOD 10/17/2024 4:41 PM EDT [facility] MCHC 34.3 30.7 - 35.5 g/dL LAB HEMATOLOGY METHOD 10/17/2024 4:41 PM EDT [facility] RDW 15.9(H) 11.5 - 14.5 % LAB HEMATOLOGY METHOD 10/17/2024 4:41 PM EDT [facility] MPV 12.1 8.8 - 12.5 fL LAB HEMATOLOGY METHOD 10/17/2024 4:41 PM EDT [facility] nRBC 0.0 <=0.0 per 100 WBCs LAB HEMATOLOGY METHOD 10/17/2024 4:41 PM EDT [facility] Differential Type Automated LAB HEMATOLOGY METHOD 10/17/2024 4:41 PM EDT [facility] Neutrophils % 63 % LAB HEMATOLOGY METHOD 10/17/2024 4:41 PM EDT [facility] Lymphocytes % 24 % LAB HEMATOLOGY METHOD 10/17/2024 4:41 PM EDT [facility] Monocytes % 11 % LAB HEMATOLOGY METHOD 10/17/2024 4:41 PM EDT [facility] Eosinophils % 1 % LAB HEMATOLOGY METHOD 10/17/2024 4:41 PM EDT [facility] Basophils % 0 % LAB HEMATOLOGY METHOD 10/17/2024 4:41 PM EDT [facility] Immature Granulocytes % 1 % LAB HEMATOLOGY METHOD 10/17/2024 4:41 PM EDT [facility] Neutrophils Absolute 6.06 1.60 - 6.10 10*3/uL LAB HEMATOLOGY METHOD 10/17/2024 4:41 PM EDT [facility] Lymphocytes Absolute 2.31 1.20 - 3.90 10*3/uL LAB HEMATOLOGY METHOD 10/17/2024 4:41 PM EDT [facility] Monocytes Absolute 1.05(H) 0.30 - 0.90 10*3/uL LAB HEMATOLOGY METHOD 10/17/2024 4:41 PM EDT [facility] Eosinophils Absolute 0.06 0.00 - 0.50 10*3/uL LAB HEMATOLOGY METHOD 10/17/2024 4:41 PM EDT [facility] Basophils Absolute 0.01 0.00 - 0.10 10*3/uL LAB HEMATOLOGY METHOD 10/17/2024 4:41 PM EDT [facility] Immature Granulocytes Absolute 0.05 0.00 - 0.06 10*3/uL LAB HEMATOLOGY METHOD 10/17/2024 4:41 PM EDT [facility] Blood Venous blood specimen / Unknown Venipuncture / Unknown 10/17/2024 4:05 PM EDT 10/17/2024 4:24 PM EDT Narrative [facility] - 10/17/2024 4:41 PM EDT Therapeutic decision making should be based on absolute values, rather than percentages. Job Devine DIRECT SUPPORT STAFF, CNM LAB BLOOD ORDERABLES Final Result Performing Organization Address [facility]/ZIP Co de Phone Number [facility] [address] [place] [address] * (ABNORMAL) Uric acid (10/17/2024 4:05 PM EDT) Uric Acid, Plasma 10.1(H) 3.1 - 7.1 mg/dL 10/17/2024 9:51 PM EDT [facility] Blood Venous blood specimen / Unknown Venipuncture / Unknown 10/17/2024 4:05 PM EDT 10/17/2024 4:20 PM EDT Hilton Montelongo MD LAB BLOOD ORDERABLES Final Re sult Performing Organization Address [facility] Co de Phone Number [facility] [address] [place] [address] * (ABNORMAL) Lactate dehydrogenase (10/17/2024 4:05 PM EDT) LDH, Plasma 267(H) 116 - 250 U/L 10/17/2024 9:51 PM EDT [facility] Comment:Hemolyzed, result ma y be falsely increased. Blood Venous blood specimen / Unknown Venipuncture / Unknown 10/17/2024 4:05 PM EDT 10/17/2024 4:20 PM EDT Hilton Montelongo MD LAB BLOOD ORDERABLES Final Re sult Performing Organization Address City/[facility] Co de Phone Number [facility] [address] [place] [address] * OB US Detail Anatomy (10/17/2024 1:34 PM EDT) Anatomical Region Laterality Modality Body Ultrasound 10/17/2024 11:2 0 AM EDT Impressions 10/17/2024 2:52 PM EDT The OB Ultrasound you requested has been resulted. Please navigate to the Imaging tab in [employer] for review. This message has been generated by the interface. Narrative Procedure Note Melonie Wheeler MD - 10/17/2024 IMPRESSION: The OB Ultrasound you requested has been resulted. Please navigate to theImaging tab in [employer] for review. This message has been generated by theinterface. us Dilip Gipson MD IMG OB US PROCEDURES Lena l Result * (ABNORMAL) POCT Urinalysis Dipstick (10/17/2024 9:14 AM EDT) Only the most recent of2 resultswithin the time period is included. POCT Urine Color Yellow POCT Urine Clarity Clear POCT Glucose Urine Negative Negative mg/dL POCT Bilirubin, Urine Negative Negative POCT Ketones, Urine Negative Negative mg/dL POCT Specific Crane, Urine 1.015 POCT Blood, Urine Negative Negative POCT pH, Urine 8.5(A) 5.0 to 8.0 POCT Protein, Urine 30(A) Negative mg/dL POCT Urobilinogen, Urine 0.2 0.2, 1 E.U./dL POCT Nitrite, Urine Negative Negative POCT Leukocyte Esterase, Urine Negative Negative Test Strip Lot Number [id number] Test Strip Lot Expiration 07/2025 Urine Urine specimen obtained by clean catch procedure / Unknown 10/17/2024 9:14 AM EDT us Dilip Gipson MD POINT OF CARE TEST ENTER/ EDIT ORDERABLES Final Result * Chloride, urine, random (09/26/2024 10:07 AM EDT) Chloride, Urine 25 mmol/L 2:03 PM EDT [facility] Urine Urine specimen obtained by clean catch procedure / Unknown Non-blood Collection / Unknown 09/26/2024 10:07 AM EDT 09/26/2024 10:07 AM EDT us Bill Patrick MD LAB URINE ORDERABLES Final Resul t [facility] [address] [place] [address] * Sodium, urine, random (09/26/2024 10:02 AM EDT) Sodium, Urine 110 mmol/L 09/26/2024 11:55 AM EDT [facility] Urine Urine specimen obtained by clean catch procedure / Unknown Non-blood Collection / Unknown 09/26/2024 10:02 AM EDT 09/26/2024 10:02 AM EDT us Bill Patrick MD LAB URINE ORDERABLES Final Resul t Performing Organization Address City/[facility] Co de Phone Number [facility] [address] [place] [address] * Potassium, urine, random (09/26/2024 10:02 AM EDT) Potassium, Urine 43 mmol/L 09/26/2024 11:55 AM EDT [facility] Urine Urine specimen obtained by clean catch procedure / Unknown Non-blood Collection / Unknown 09/26/2024 10:02 AM EDT 09/26/2024 10:02 AM EDT us Bill Patrick MD LAB URINE ORDERABLES Final Resul t Performing Organization Address City/[facility]/ZIP Co de Phone Number [facility] [address] [place] [address] * Osmolality, urine (09/26/2024 10:02 AM EDT) Osmolality, Urine 404 50 - 1,200 mOsm/kg 09/26/2024 1:48 PM EDT [facility] Urine Urine specimen obtained by clean catch procedure / Unknown Non-blood Collection / Unknown 09/26/2024 10:02 AM EDT 09/26/2024 10:02 AM EDT us Bill Patrick MD LAB URINE ORDERABLES Final Resul t [facility] [address] [place] [phone] * SSA 52 and 60 (Ro) (YARA) Antibodies, IgG (09/26/2024 9:32 AM EDT) SSA-52 (RO52) (YARA) Antibody, IgG 2 0 - 40 AU/mL 09/28/2024 5:47 PM EDT [facility] ([employer] [place]) SSA-60 (RO60) (YARA) Antibody, IgG 0 0 - 40 AU/mL 09/28/2024 5:47 PM EDT [facility] ([employer] [place]) Serum 09/26/2024 9:32 AM EDT 09/26/2024 9:32 AM EDT Narrative [facility] ([employer] [place]) - 09/28/2024 5:47 PM EDT INTERPRETIVE INFORMATION: [...] AU/mL or Greater .......... Positive Performed By: [facility] [address] [place] [address] Manager Dish: Brandon Bell MD, PhD CLIA Number: [id number] Bill Patrick MD LAB REF LAB BLOOD AND FLUID ORD Final Result Performing Organization Address City/[facility]/ZIP Co de Phone Number [facility] ([facility]) [address] [place] [phone] * SSB (LA) (YARA) ANTIBODY, IGG (09/26/2024 9:32 AM EDT) SSB (LA) (YARA) Antibody, IgG 0 0 - 40 AU/mL 09/28/2024 5:47 PM EDT [facility] ([facility]) Serum Venous blood specimen / Unknown 09/26/2024 9:32 AM EDT 09/26/2024 9:32 AM EDT [facility] [employer]) - 09/28/2024 5:47 PM EDT INTERPRETIVE INFORMATION: [...] (PSS) also have this antibody. Performed By: [facility] [address] [place], [place] [id number] Manager Dish: Brandon Bell MD, PhD CLIA Number: [id number] Bill Patrick MD LAB BLOOD ORDERABLES Final Resul t [facility] ([facility]) [address] [place] [address] * Rheumatoid factor, plasma (09/26/2024 9:32 AM EDT) Rheumatoid Factor, Plasma <10 <14 IU/mL 09/26/2024 1:49 PM EDT [facility] Blood Venous blood specimen / Unknown Venipuncture / Unknown 09/26/2024 9:32 AM EDT 09/26/2024 9:32 AM EDT us Bill Patrick MD LAB BLOOD ORDERABLES Final Resul t [facility] [address] [place] [address] * Antinuclear Antibody (JEFFERY), HEp-2, IgG (09/26/2024 9:32 AM EDT) JEFFERY INTERPRETIVE COMMENT See Note 09/28/2024 5:13 PM EDT [facility] ([employer] [place]) Anti Nuc Ab Screen <1:80 <1:80 09/28/2024 5:13 PM EDT [facility] ([employer] [place]) Blood Venous blood specimen / Unknown Venipuncture / Unknown 09/26/2024 9:32 AM EDT 09/26/2024 9:32 AM EDT Narrative [facility] ([facility]) - 09/28/2024 5:13 PM EDT [...] rings, and cytoplasmic speckled patterns. Performed By: [facility] [address] [place] [address] Manager Dish: Brandon Bell MD, PhD CLIA Number: [id number] us Bill Patrick MD LAB BLOOD ORDERABLES Final Resul t [facility] ([facility]) [address] [place] [address] * (ABNORMAL) Osmolality (09/26/2024 9:32 AM EDT) Osmolality, Serum 273(L) 275 - 295 mOsm/Kg 09/26/2024 2:10 PM EDT [facility] Blood Venous blood specimen / Unknown Venipuncture / Unknown 09/26/2024 9:32 AM EDT 09/26/2024 9:32 AM EDT us Bill Patrick MD LAB BLOOD ORDERABLES Final Resul t [facility] [address] [place] [address] * (ABNORMAL) Renal function panel (09/26/2024 9:32 AM EDT) Glucose, Plasma 87 74 - 99 mg/dL 09/26/2024 12:24 PM EDT [facility] BUN, Plasma 5(L) 7 - 21 mg/dL 09/26/2024 12:24 PM EDT [facility] Creatinine, Plasma 0.72 0.60 - 1.10 mg/dL 09/26/2024 12:24 PM EDT [facility] BUN/Creatinine Ratio 7 09/26/2024 12:24 PM EDT [facility] Sodium, Plasma 135(L) 136 - 145 mmol/L 09/26/2024 12:24 PM EDT [facility] Potassium, Plasma 3.1(L) 3.6 - 4.9 mmol/L 09/26/2024 12:24 PM EDT [facility] Chloride, Plasma 95(L) 97 - 107 mmol/L 09/26/2024 12:24 PM EDT [facility] CO2, Plasma 26 22 - 29 mmol/L 09/26/2024 12:24 PM EDT [facility] Anion Gap 14 6 - 16 mmol/L 09/26/2024 12:24 PM EDT [facility] Total Calcium, Plasma 9.4 8.9 - 10.2 mg/dL 09/26/2024 12:24 PM EDT [facility] Phosphorus, Plasma 3.5 2.5 - 4.5 mg/dL 09/26/2024 12:24 PM EDT [facility] Albumin, Plasma 3.6 3.5 - 5.2 g/dL 09/26/2024 12:24 PM EDT [facility] eGFRcr 113.4 mL/min/1.7 3m*2 09/26/2024 12:24 PM EDT [facility] Comment:Reported eGFRcr in m L/min/1.73m2 is based the CKD-EPI 2020 equation that does not use a race coefficient. Blood Venous blood specimen / Unknown Venipuncture / Unknown 09/26/2024 9:32 AM EDT 09/26/2024 9:32 AM EDT Bill Patrick MD LAB BLOOD ORDERABLES Final Resul t [facility] [address] [place] [address] * Adult Patch Monitor - 7 Day [...] on Day 3 / 08:47:57 pm SVE(s): [place] was 3.46 %, 6[address] total SVE(s) SV Arrhythmia(s): 21 events, longest event 7 beats on Day 03:05:26 am, fastest event 111 bpm on Day 02:02:39 am PVC(s): [place] was 0.03 %, 189 total PVC(s), 1 [...] ECG Atrial Rate 84 BPM MUSE ECG [place] Interval 148 ms MUSE ECG QRSD Interval 74 ms MUSE ECG QT Interval 374 ms MUSE ECG QTC Interval 441 ms MUSE ECG P Omar 60 degrees MUSE ECG R Omar 36 degrees MUSE ECG T Wave Omar 55 degrees MUSE ECG Diagnosis Normal sinus rhythm with sinus arrhythmia MUSE ECG Diagnosis Normal ECG MUSE ECG Diagnosis MUSE ECG Diagnosis Confirmed by Abad South ([id number]) on 09/26/2024 12:13:59 PM MUSE ECG 09/26/2024 8:21 AM EDT 09/26/2024 12:13 PM EDT Dilip Vasquez MD ECG ORDERABLES Final Resu lt MUSE ECG * HIV 1 & 2 Antibody/Antigen Screen [...] EST 01/22/2019 12:12 PM EST Pradip Damico DIRECT SUPPORT STAFF, CNM LAB BLOOD ORDERABLES Fin al Result SUNQUEST from Last 3 Months or Most Recently Relevant to Health Maintenance Additional Health Concerns Infection Onset Date Last Indicated Resolved Time COVID-19 Rule-Out 10/17/2024 10/17/2024 Insurance [employer] MEDICAID Advance Directives * Full Code (Latest Code Status on File) Date Activated Date Inactivated Comments 10/17/2024 7:12 PM Question Answer Comments I have reviewed the capacity from the link above and, if needed, have updated to appropriate status: Yes Care Teams Taxi Driver Supervisor Relationship Specialty Start Date End Date Norma Friedman APRN [address] [place] [id number] PCP - General 09/23/24 Lizz Trinh, RN [facility] Registered Nurse Cardiology 09/26/24
--- OUTSIDE RECORDS SUMMARY | 2024-10-18 23:59 | XMS_ITS | Encounter Summary ---
Author Organization Healthcare Address [address] [place] [phone] Care Team Providers Care Powder Coat Painter Name Role Phone Norma Friedman JOLENE Primary Care Provider +1- [phone] Lizz Trinh RN Unavailable Unavailable Encounter Details Date Type Department Care Team (Late st Contact Info) Description 10/18/2024 11:59 PM EDT Anesthesia Event [facility] Delivery [address] [place] [phone] Everett Farrar MD [address] [place] [address] Anesthesia Record Procedure Summary Procedure Name Responsible Anesthesiologist Anesthesia Start Time Anesthesia Stop Time Labor Consult Events No events on file. Meds * Agents No agents on file. * Blood No blood administrations on file. Lines, Drains, and Airways No LDAs on file. documented in this encounter Social History Tobacco [...] more drinks on one occasion? Never 09/23/2024 [place] Depression Scale Answer Date Recorded [place] Depression Scale Total 0 09/23/2024 The thought [...] as of this encounter Miscellaneous Notes * Anesthesia IP Labor Consult - Everett Farrar MD - 10/18/2024 4:46 AM EDT Patient: Whitney Presley Procedure Information Date: 10/18/24 Procedure: Labor Consult 34 year-old female with PMH -related hyperaldosteronism currently admitted to the obstetric unit for severe electrolyte abnormalities: hypokalemia/hypomagnesemia. also c/b IUGR, cholestasis of . Prior hx of hyperaldosteronism w/ electrolyte abnormalities that resolved after delivery. 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 Does not have a history of anesthetic complications. Physical Exam Airway Mallampati: II Mouth opening: normal Neck ROM: full Cardiovascular Rhythm: regular Rate: normal Dental - normal exam Pulmonary Neurological Skin Musculoskeletal Extremities Anesthesia Plan ASA 2 Plan was reviewed with: resident and attending Anesthesia technique(s) discussed with the patient/family: CSE, epidural, general and spinal Anesthetic plan and risks discussed with patient. Additional Equipment Requests documented in this encounter Plan of Treatment Upcoming Encounters Date Type Department Care Team (Late st Contact Info) Description 10/24/2024 8:00 AM EDT Office Visit [facility] [place] [address], [address] [place] [address] Nneka Block MD [address] [place] [address] 10/24/2024 9:45 AM EDT Routine [facility] Building Obstetrics and Gynecology [address], [address] [place] [address] Nneka Gipson MD [address] [place] [address] 12/25/2024 1:00 PM EST Office Visit [facility] [employer] [place] [facility] [address], [address] [place] [phone] documented as of this encounter Visit Diagnoses [...] documented as of this encounter Care Teams Powder Coat Painter Relationship Specialty Start Date End Date Norma Friedman APRN [address] [place] [address] PCP - General 09/23/24 Lizz Trinh, RN [facility] Registered Nurse Cardiology 09/26/24 documented as of this encounter
== END 2024-10-16 23:59 | disposition home or self-care (01) ==
LOC: LAB.DROPOF 10-18 11:09
PROVIDERS: PCP Nurse Practitioner Obstetrics & Gynecology; Visit Provider Nurse Practitioner Obstetrics & Gynecology
DX: O26.643 Intrahepatic cholestasis of pregnancy, third trimester (principal); J02.9 Acute pharyngitis, unspecified
CPT/HCPCS: 87070; 87077; 87186

== ENCOUNTER 2024-10-21 08:09 | Outpatient (CLI) | payer OTHER, SELFPAY ==
[2024-10-21] VITALS (7 sets, daily range): BP systolic 124–131; BP diastolic 62–81; PULSE 71–88; RESP 18; TEMP 36.8; O2SAT 99
[2024-10-21 09:03] LABS: Alanine Aminotransferase 39 U/L (12-78); Albumin Level 2.9 g/dl (3.5-5.0); Albumin/Globulin Ratio 1.0 (1.1-1.8); Alkaline Phosphatase 81 U/L (38-126); Anion Gap 5.9 mEq/L (5-15); Aspartate Amino Transferase 34 U/L (14-36); Bilirubin,Total 0.4 mg/dl (0.2-1.3); Blood Urea Nitrogen 5 mg/dl (7-17); Calcium 8.4 mg/dl (8.4-10.2); Carbon Dioxide 22 mmol/L (22.0-30.0); Chloride 109 mmol/L (98-107); Creatinine,Serum 0.60 mg/dl (0.52-1.04); Estimated Glomerular Filt Rate 115 ml/min (>60); GFR (African American) 139 ML/MIN (>60); Globulin 2.9 g/dL (1.3-3.2); Glucose 90 mg/dl (74-100); Magnesium 1.2 mg/dl (1.6-2.3); Potassium 3.9 mmoL/L (3.5-5.1); Sodium 133 mmol/L (136-145); Total Protein,Serum 5.8 g/dl (6.3-8.2)
[2024-10-21] MEDS: MAGNESIUM SULFATE IN WATER 2 GM/50 ML PIGGYBACK IV ×3 (09:25→11:20)
== END 2024-10-21 12:40 | disposition home or self-care (01) ==
LOC: INF 08:11
PROVIDERS: PCP Nurse Practitioner Family; Visit Provider Nurse Practitioner Obstetrics & Gynecology
DX: O26.643 Intrahepatic cholestasis of pregnancy, third trimester (principal); O12.13 Gestational proteinuria, third trimester; Z3A.33 33 weeks gestation of pregnancy; Z98.891 History of uterine scar from previous surgery
CPT/HCPCS: 80053; 83735; 96365; 96366; J3475

== ENCOUNTER 2024-10-22 13:31 | Outpatient (CLI) | payer OTHER, SELFPAY ==
--- OUTSIDE RECORDS SUMMARY | 2024-08-29 10:00 | XMS_ITS | Encounter Summary ---
[facility] Organization [facility] Address [address] [place] [address] Care Team Providers Care Weaving Machine Operator Name Role Phone IvyKade goldbergjoseseven JOLENE Primary Care Provider + [phone] Reason for Visit * Reason Comments Problem Encounter Details Date Type Department Care Team (Late st Contact Info) Description 08/29/2024 10:00 AM EDT Routine [facility] OBGYN [address] [place] [address] Staci Jain MD [address] [place] [address] GA: 26w4d Social History Tobacco Use Types Packs/Day Years Used Date Smoking Tobacco: Never Smokeless Tobacco: Never Alcohol Use Standard Drinks/Week Comments Never 0 (1 standard drink = 0.6 oz pur e alcohol) [facility] Utilities Answer Date Recorded In the past 12 months has [employer], gas, oil, or water [employer] threatened to shut off services in your [...] and heating? Not hard at all 05/28/2024 [facility] [place] [facility] hospitalal Health - Occupational Stress Questionnaire Answer [...] Description 01/20/2025 3:30 PM EST Office Visit [facility] GASTROENTEROLOGY [address] [address] Robbin Escalante MD [address] [address] documented as of this encounter Procedures Procedure [...] 08/30/2024 6:09 AM EDT Performed at: [address] [id number] Wide Area Network Systems Administrator: Kevin Harman MD, Phone: [phone] Patient Fasting: N us Staci Jain MD LAB BLOOD ORDERABLES Final Result [facility] ([facility]) [address] [place] [address], [facility] [address] [place] [address], * (ABNORMAL) Comprehensive Metabolic Panel (08/29/2024 11:05 [...] 11:0 5 AM EDT 08/29/2024 Narrative [facility] (AMBULATORY) - 08/30/2024 6:09 AM EDT Performed at: 01 - [place] [address] [address] [place], [place] [id number] Wide Area Network Systems Administrator: Kevin Harman MD, Phone: [phone] Patient Fasting: N Staci Jain MD LAB BLOOD ORDERABLES Final Result Performing Organization Address City/[facility]/ZIP Co de Phone Number [facility] ([facility]) [address] [place] [address], [place] [phone] [facility] [address] [place] [address], [place] [phone] * (ABNORMAL) POC Urinalysis Dipstick (08/29/2024 10:13 AM EDT) Glucose, UA Negative Negative mg/dL [facility] Protein, POC Trace(A) Negative mg/dL [facility] Urine 08/29/2024 10:1 3 AM EDT us Staci Jain MD POINT OF CARE TEST OR DERABLES Final Result Performing Organization Address City/[facility]/ZIP Co de Phone Number [facility]
[address] [place] [address], documented in this encounter Visit Diagnoses Diagnosis [...] documented as of this encounter Care Teams Weaving Machine Operator Relationship Specialty Start Date End Date Norma Friedman APRN [address] [place] RAFAEL[place] APPIAH [address] PCP - General Family Medicine 05/14/24 documented as of this encounter
--- OUTSIDE RECORDS SUMMARY | 2024-09-23 10:00 | XMS_ITS | Encounter Summary ---
Author Organization [facility] Address [address] [place] [address] Care Team Providers Care Bottom Turning Lathe Turner Name Role Phone Norma Friedman JOLENE Primary Care Provider +1- [phone] Reason for Referral * Consultation (Routine) - Closed Specialty Diagnoses / Procedures Referred By Contac t Referred To Contact Cardiology Diagnoses Supervision of high risk , antepartum Cardiac arrhythmia, unspecified cardiac arrhythmia type Liborio Weller MD [address] [facility] [address] [place] [address] Phone: tel: fax: Referral ID Status Reason Start Date Expiration Date V isits Requested Visits Authorized [id number] Closed Specialty Services Required 09/23/2024 03/25/2026 1 1 Encounter Details Date Type Department Care Team ([facility] st Contact Info) Description 09/23/2024 10:00 AM EDT Office Visit Medical Office Building Obstetrics and Gynecology [address] [facility], [address] [place] [address] Liborio Weller MD [address] [facility] [address] [place] [address] Supervision of high risk , [...] more drinks on one occasion? Never 09/23/2024 [place] Depression Scale Answer Date Recorded [place] Depression Scale Total 0 09/23/2024 The thought [...] last week on 09/19. [facility]. [...] 09/25 and has otherwise never seen a etl software engineer. She has never seen a lumber sorter. She also reports during this admission she [...] None N JAGDISH Complications: Potassium (K) deficiency [place] Depression Scale Total: 0 Gynecology History No [...] has a past surgical history that includes [place] tooth extraction (N/A); section, low transverse (N/A); [...] prescription(s): ferosul, potassium chloride cr, prenat mv-min w/zx-pxzggy-igu, and thiamine. Allergies Allergies[1] Review of Systems [...] Had tachycardia and arrhythmia during admission to [facility] on 09/19 HR to 170s-180s with standing, [...] other day Has never been evaluated by etl software engineer for salt wasting nephropathy PLAN Has nephrology [...] the patient, and documenting this visit. (Est [id number]) Brandee Pringle MD Obstetrics & Gynecology, PGY-2 [...] Description 10/24/2024 8:00 AM EDT Office Visit [facility] [place] [address] [facility], [address] [place] [address] Nneka Block MD [address] [place] [address] 10/24/2024 9:45 AM EDT Routine Medical Office Building Obstetrics and Gynecology [address] [facility], [address] [place] [address] Nneka Gipson MD [address] [place] [address] 12/25/2024 1:00 PM EST Office Visit [facility] [place] Nephrology, Bone & Mineral Metabolism [address], [address] [place] [address] Scheduled Referrals Name Type Priority [...] Ketones, Urine 40(A) Negative mg/dL POCT Specific [place], Urine 1.015 POCT Blood, Urine Negative Negative POCT pH, Urine >=9.0(A) 5.0 to 8.0 POCT Protein, Urine 100(A) Negative mg/dL POCT Urobilinogen, Urine 0.2 0.2, 1 E.U./dL POCT Nitrite, Urine Negative Negative POCT Leukocyte Esterase, Urine Negative Negative Test Strip Lot Number [id number] Test Strip Lot Expiration 07/2025 Urine Urine specimen obtained by clean catch procedure / Unknown 09/23/2024 10:54 AM EDT Liborio Weller MD POINT OF CARE TEST ENTER/EDIT ORDERABLES Edited Result - Final documented in this encounter Visit Diagnoses Diagnosis Supervision of high risk , antepartum- Primary Cardiac arrhythmia, unspecified cardiac arrhythmia type Supervision of high risk , antepartum- Primary documented in this encounter Additional Health Concerns Assessment Noted Time A Body Mass Index follow-up plan has been documented for the patient 09/23/2024 8:28 PM EDT documented as of this encounter Care Teams Bottom Turning Lathe Turner Relationship Specialty Start Date End Date Norma Friedman APRN [address] [place] [address] PCP - General 09/23/24 documented as of this encounter
--- OUTSIDE RECORDS SUMMARY | 2024-09-25 14:20 | XMS_ITS | Encounter Summary ---
Author Organization Healthcare Address [address] [place] [address] Care Team Providers Care [employer] Consultant Name Role Phone Norma Friedman JOLENE Primary Care Provider [phone]- [phone] Reason for Referral * Consultation (Routine) - Authorized Specialty Diagnoses / Procedures Referred By Tarik pedersen Referred To Contact Diagnoses Hypokalemia Bill Patrick MD [address] [place] [phone] Phone: tel: fax: Referral ID Status Reason Start Date Expiration Date V isits Requested Visits Authorized [id number] Authorized 09/25/2024 03/27/2026 1 1 * Imaging (Routine) - Authorized Specialty Diagnoses / Procedures Referred By Tarik pedersen Referred To Contact Radiology Diagnoses Hypokalemia Procedures US Renal Complete Bill Patrick MD [address] [place] [phone] Phone: tel: fax: Referral ID Status Reason Start Date Expiration Date V isits Requested Visits Authorized [id number] Authorized 09/25/2024 03/27/2026 1 1 Reason for Visit * Reason Comments Consult * Consultation (Routine) - Closed Specialty Diagnoses / Procedures Referred By Tarik pedersen Referred To Contact Nephrology Diagnoses Hypokalemia Liborio Weller MD [address] [address] Phone: tel: fax: [facility] Nephrology, Bone & Mineral Metabolism [address] , [address] [place] [address] Phone: tel: fax: Referral ID Status Reason Start Date Expiration Date V isits Requested Visits Authorized [id number] Closed Specialty Services Required 09/14/2024 03/16/2026 1 1 Encounter Details Date Type Department Care Team (Late st Contact Info) Description 09/25/2024 2:20 PM EDT Office Visit [facility] Nephrology, Bone & Mineral Metabolism [address] , [address] [place] [address] Bill Patrick MD [address] [place] [address] Hypokalemia (Primary Dx) Social History [...] more drinks on one occasion? Never 09/23/2024 [place] Depression Scale Answer Date Recorded [place] Depression Scale Total 0 09/23/2024 The thought [...] 37 weeks andshe did not see a Electronics Test Engineer at that time. Also notes she has [...] Date SECTION, LOW TRANSVERSE N/A section from [facility] DILATION AND CURETTAGE OF UTERUS N/A Dilation and curettage from [facility] WISDOM TOOTH EXTRACTION N/A Oral Surgery Tooth Extraction [place] Tooth from [facility] [3] Family History Problem Relation Name Age [...] mouth 3 times a day.) Prenat MV-Min w/Ht-Ifuvln-ORM ( COMPLETE PO) thiamine (Vitamin B-1) 100 [...] Description 10/24/2024 8:00 AM EDT Office Visit [facility] [place] [address] [facility], [address] [place] [address] Nneka Block MD [address] [place] [address] 10/24/2024 9:45 AM EDT Routine Medical Office Building Obstetrics and Gynecology [address] [facility], [address] [place] [address] Nneka Gipson MD [address] [place] [address] 12/25/2024 1:00 PM EST Office Visit [facility] Nephrology, Bone & Mineral Metabolism [address] [facility], [address] [place] [address] Scheduled Orders Name Type Priority [...] Chloride, Urine 25 mmol/L 2:03 PM EDT [facility] Urine Urine specimen obtained by clean catch procedure / Unknown Non-blood Collection / Unknown 09/26/2024 10:07 AM EDT 09/26/2024 10:07 AM EDT us Bill Patrick MD LAB URINE ORDERABLES Final Resul t [facility] [address] [place] [address] * Protein, Random, Urine with Creatinine (09/26/2024 10:03 AM EDT) Protein, Urine 26 mg/dL 09/26/2024 12:08 PM EDT [facility] Creatinine, Urine 199 mg/dL 09/26/2024 12:08 PM EDT [facility] Protein/Creati nine Ratio 0.1 mg/mg Creat 09/26/2024 12:08 PM EDT [facility] Urine Urine specimen obtained by clean catch procedure / Unknown Non-blood Collection / Unknown 09/26/2024 10:03 AM EDT 09/26/2024 10:04 AM EDT us Bill Patrick MD LAB URINE ORDERABLES Final Resul t Performing Organization Address City/[facility] Co de Phone Number [facility] [address] [place] [address] * Potassium, urine, random (09/26/2024 10:02 AM EDT) Potassium, Urine 43 mmol/L 09/26/2024 11:55 AM EDT [facility] Urine Urine specimen obtained by clean catch procedure / Unknown Non-blood Collection / Unknown 09/26/2024 10:02 AM EDT 09/26/2024 10:02 AM EDT us Bill Patrick MD LAB URINE ORDERABLES Final Resul t Performing Organization Address [facility] de Phone Number [facility] [address] [place] [address] * Osmolality, urine (09/26/2024 10:02 AM EDT) Osmolality, Urine 404 50 - 1,200 mOsm/kg 09/26/2024 1:48 PM EDT [facility] Urine Urine specimen obtained by clean catch procedure / Unknown Non-blood Collection / Unknown 09/26/2024 10:02 AM EDT 09/26/2024 10:02 AM EDT us Bill Patrick MD LAB URINE ORDERABLES Final Resul t Performing Organization Address City/[facility] Co de Phone Number [facility] [address] [place] [address] * Sodium, urine, random (09/26/2024 10:02 AM EDT) Sodium, Urine 110 mmol/L 09/26/2024 11:55 AM EDT [facility] Urine Urine specimen obtained by clean catch procedure / Unknown Non-blood Collection / Unknown 09/26/2024 10:02 AM EDT 09/26/2024 10:02 AM EDT Bill Patrick MD LAB URINE ORDERABLES Final Resul t [facility] [address] [place] [address] * Antinuclear Antibody (JEFFERY), HEp-2, IgG (09/26/2024 9:32 AM EDT) JEFFERY INTERPRETIVE COMMENT See Note 09/28/2024 5:13 PM EDT [facility] ([facility]) Anti Nuc Ab Screen <1:80 <1:80 09/28/2024 5:13 PM EDT [facility] ([facility]) Blood Venous blood specimen / Unknown Venipuncture / Unknown 09/26/2024 9:32 AM EDT 09/26/2024 9:32 AM EDT Narrative [facility] ([facility]) - 09/28/2024 5:13 PM EDT [...] rings, and cytoplasmic speckled patterns. Performed By: [facility] [address] [place] [address] Water Treatment Plant Engineer: Brandon Bell MD, PhD CLIA Number: [id number] Bill Patrick MD LAB BLOOD ORDERABLES Final Resul t Performing Organization Address City/[facility]/ZIP Co de Phone Number [facility]) [address] [place] [address] * Rheumatoid factor, plasma (09/26/2024 9:32 AM EDT) Rheumatoid Factor, Plasma <10 <14 IU/mL 09/26/2024 1:49 PM EDT [facility] Blood Venous blood specimen / Unknown Venipuncture / Unknown 09/26/2024 9:32 AM EDT 09/26/2024 9:32 AM EDT Bill Patrick MD LAB BLOOD ORDERABLES Final Resul t [facility] [address] [place] [address] * SSB (LA) (YARA) ANTIBODY, IGG (09/26/2024 9:32 AM EDT) SSB (LA) (YARA) Antibody, IgG 0 0 - 40 AU/mL 09/28/2024 5:47 PM EDT [facility]) Serum Venous blood specimen / Unknown 09/26/2024 9:32 AM EDT 09/26/2024 9:32 AM EDT Narrative [facility]) - 09/28/2024 5:47 PM EDT INTERPRETIVE INFORMATION: [...] (PSS) also have this antibody. Performed By: [facility] [address] [place] [address] Water Treatment Plant Engineer: Brandon Bell MD, PhD CLIA Number: [id number] Bill Patrick MD LAB BLOOD ORDERABLES Final Resul t [facility] ([facility]) [address] [place] [address] * SSA 52 and 60 (Ro) (YARA) Antibodies, IgG (09/26/2024 9:32 AM EDT) SSA-52 (RO52) (YARA) Antibody, IgG 2 0 - 40 AU/mL 09/28/2024 5:47 PM EDT [facility] ([facility]) SSA-60 (RO60) (YARA) Antibody, IgG 0 0 - 40 AU/mL 09/28/2024 5:47 PM EDT [facility] ([facility]) Serum 09/26/2024 9:32 AM EDT 09/26/2024 9:32 AM EDT Narrative [facility] ([facility]) - 09/28/2024 5:47 PM EDT INTERPRETIVE INFORMATION: [...] AU/mL or Greater .......... Positive Performed By: [facility] [address] [place] [address] Water Treatment Plant Engineer: Brandon Bell MD, PhD CLIA Number: [id number] Bill Patrick MD LAB REF LAB BLOOD AND FLUID ORD Final Result [facility] ([facility]) [address] [place] [address] * (ABNORMAL) Renal function panel (09/26/2024 9:32 [...] - 5.2 g/dL 09/26/2024 12:24 PM EDT [facility] eGFRcr 113.4 mL/min/1.7 3m*2 09/26/2024 12:24 PM EDT [facility] Comment:Reported eGFRcr in m L/min/1.73m2 is based the CKD-EPI 2020 equation that does not use a race coefficient. Blood Venous blood specimen / Unknown Venipuncture / Unknown 09/26/2024 9:32 AM EDT 09/26/2024 9:32 AM EDT us Bill Patrick MD LAB BLOOD ORDERABLES Final Resul t Performing Organization Address City/[facility] Co de Phone Number [facility] [address] [place] [address] * (ABNORMAL) Osmolality (09/26/2024 9:32 AM EDT) Osmolality, Serum 273(L) 275 - 295 mOsm/Kg 09/26/2024 2:10 PM EDT [facility] Blood Venous blood specimen / Unknown Venipuncture / Unknown 09/26/2024 9:32 AM EDT 09/26/2024 9:32 AM EDT us Bill Patrick MD LAB BLOOD ORDERABLES Final Resul t Performing Organization Address City/[facility] Co de Phone Number [facility] [address] [place] [address] documented in this encounter Visit Diagnoses Diagnosis [...] documented as of this encounter Care Teams [employer] Consultant Relationship Specialty Start Date End Date Norma Friedman APRN [address] [place] [address] PCP - General 09/23/24 documented as of this encounter
--- OUTSIDE RECORDS SUMMARY | 2024-09-26 08:00 | XMS_ITS | Encounter Summary ---
Author Organization [facility] Address [address] [place] [address] Care Team Providers Care Production Quality Analyst Name Role Phone Norma Friedman TRAFFIC PERSONNEL SUPERVISOR Primary Care Provider +1- [phone] Lizz Trinh RN Unavailable Unavailable Reason for Referral * Consultation (Routine) - Authorized Specialty Diagnoses / Procedures Referred By Tarik pedersen Referred To Contact Diagnoses Palpitations Syncope and collapse Nneka Vasquez MD [address] [place] [phone] Phone: tel: fax: Referral ID Status Reason Start Date Expiration Date V isits Requested Visits Authorized [id number] Authorized 09/26/2024 03/28/2026 1 1 * Cardiac Stress Testing (Routine) - Closed Specialty Diagnoses / Procedures Referred By Contac t Referred To Contact Cardiology Diagnoses Palpitations Syncope and collapse Procedures Adult Patch Monitor - 7 Day Nneka Vasquez MD [address] [place] [phone] Phone: tel: fax: Referral ID Status Reason Start Date Expiration Date Visits Re quested Visits Authorized [id number] Closed 09/26/2024 03/28/2026 1 1 Reason for Visit * Consultation (Routine) - Closed Specialty Diagnoses / Procedures Referred By Contac t Referred To Contact Cardiology Diagnoses Supervision of high risk , antepartum Cardiac arrhythmia, unspecified cardiac arrhythmia type [place]orio Preciado MD [address] [address] Phone: tel: fax: Referral ID Status Reason Start Date Expiration Date V isits Requested Visits Authorized [id number] Closed Specialty Services Required 09/23/2024 03/25/2026 1 1 Encounter Details Date Type Department Care Team (Late st Contact Info) Description 09/26/2024 8:00 AM EDT Office Visit [facility] [place] [address] [facility], [address] [place] [address] Nneka Vasquez MD [address] [place] [address] Syncope and collapse (Primary Dx); [...] more drinks on one occasion? Never 09/23/2024 [place] Depression Scale Answer Date Recorded [place] Depression Scale Total 0 09/23/2024 The thought [...] MD - 09/26/2024 8:00 AM EDT [place] [facility] ([facility]) [...] home with no plans. 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 manager monitoring today to evaluate for abnormal rhythms and [...] TOOTH EXTRACTION N/A Oral Surgery Tooth Extraction [place] [employer] from [employer] [3] Social History Socioeconomic History Marital status: [...] Resource Strain: Low Risk (05/28/2024) Received from [facility] Overall Financial Resource Strain (CARDIA) Difficulty of Paying Living Expenses: Not hard at all Food Insecurity: No Food Insecurity (05/28/2024) Received from [facility] Hunger Vital Sign Within the past 12 months, you worried that your food would run out before you got the money to buymore.: Never true Within the past 12 months, the food you bought just didn't last and you didn't have money to get more.: Never true Transportation Needs: No Transportation Needs (05/28/2024) Received from [facility] PRAPARE - Transportation In the past 12 months, has lack of transportation kept you from medical appointments or from getting medications?: No In the past 12 months, has lack of transportation kept you from meetings, work, or from getting things needed for daily living?: No Physical Activity: Sufficiently Active (05/28/2024) Received from [facility] Exercise Vital Sign On average, how many days per week do you engage in moderate to strenuous exercise (like a brisk walk)?: 5 days On average, how many minutes do you engage in exercise at this level?: 40 min Stress: Stress Concern Present (05/27/2024) Received from [facility] [place] [employer] Occupational Health - Occupational Stress Questionnaire Feeling of Stress : To some extent Social Connections: Not At Risk (05/28/2024) Received from [facility] Family and Community Support If for any reason you need help with day-to-day activities such as bathing, preparing meals, shopping, managing finances, etc., do you get the help you need?: I don't need any help How often do you feel lonely or isolated from those around you?: Sometimes Intimate Partner Violence: Not At Risk (08/19/2024) Received from [facility] Abuse Screen Feels Unsafe at Home or Work/School: no Feels Threatened by Someone: no Does Anyone Try to Keep You From Having Contact with Others or Doing Things Outside Your Home?: no Physical Signs of Abuse Present: no Housing Stability: Not At Risk (08/20/2024) Received from [facility] Housing Stability Current Living Arrangements: home [...] Description 10/24/2024 8:00 AM EDT Office Visit [facility] [place] [address] [facility], [address] [place] [address] Nneka Vasquez MD [address] [place] [address] 10/24/2024 9:45 AM EDT Routine Medical Office Building Obstetrics and Gynecology [address] [facility], [address] [place] [address] Nneka Gipson MD [address] [place] [address] 12/25/2024 1:00 PM EST Office Visit [facility] Nephrology, Bone & Mineral Metabolism [address] [facility], [address] [place] [address] Scheduled Referrals Name Type Priority [...] bpm on Day 3 08:47:57 pm SVE(s): [place] was 3.46 %, [address] total SVE(s) SV Arrhythmia(s): 21 events, longest event 7 beats on Day 03:05:26 am, fastest event 111 bpm on Day 02:02:39 am PVC(s): [place] was 0.03 %, 189 total PVC(s), 1 [...] ECG Atrial Rate 84 BPM MUSE ECG [place] Interval 148 ms MUSE ECG QRSD Interval 74 ms MUSE ECG QT Interval 374 ms MUSE ECG QTC Interval 441 ms MUSE ECG P [place] 60 degrees MUSE ECG R [place] 36 degrees MUSE ECG T Wave [place] 55 degrees MUSE ECG Diagnosis Normal sinus rhythm with sinus arrhythmia MUSE ECG Diagnosis Normal ECG MUSE ECG Diagnosis MUSE ECG Diagnosis Confirmed by Abad South ([id number]) on 09/26/2024 12:13:59 PM MUSE ECG 09/26/2024 8:21 AM EDT 09/26/2024 12:13 PM EDT us Nneka Vaqsuez MD ECG ORDERABLES Final Resu lt MUSE [...] as of this encounter Care Teams Production Quality Analyst Relationship Specialty Start Date End Date Norma Friedman APRN [address] [place] [address] PCP - General 09/23/24 Lizz Trinh, RN [facility] Registered Nurse Cardiology 09/26/24 documented as of this encounter
--- OUTSIDE RECORDS SUMMARY | 2024-09-26 09:06 | XMS_ITS | Encounter Summary ---
Author Organization [facility] Address [address] [place] [address] Care Team Providers Care Sleeve Separator Name Role Phone Elder Kadedev Coy PRINCIPAL MILITARY ANALYST Primary Care Provider +1- [phone] Lizz Trinh RN Unavailable Unavailable Reason for Referral * Cardiac Stress Testing (Routine) - Closed Specialty Diagnoses / Procedures Referred By Tarik pedersen Referred To Contact Cardiology Diagnoses Palpitations Syncope and collapse Procedures Adult Patch Monitor - 7 Day Nneka Vasquez MD [address] [place] [address] Phone: tel: fax: Referral ID Status Reason Start Date Expiration Date Visits Re quested Visits Authorized [id number] Closed 09/26/2024 03/28/2026 1 1 Reason for Visit * Cardiac Stress Testing (Routine) - Closed Specialty Diagnoses / Procedures Referred By Tarik pedersen Referred To Contact Cardiology Diagnoses Palpitations Syncope and collapse Procedures Adult Patch Monitor - 7 Day Nneka Vasquez MD [address] [place] [address] Phone: tel: fax: Referral ID Status Reason Start Date Expiration Date Visits Re quested Visits Authorized [id number] Closed 09/26/2024 03/28/2026 1 1 Encounter Details Date Type Department Care Team (Latest Contact Info) Description 09/26/2024 9:06 AM EDT - 09/26/2024 11:59 PM EDT Hospital Encounter Medical Office Building Cardiac Diagnostic Testing Medical Office Building Echo Lab [address] [facility] [facility], [address] [place] [address] Palpitations; Syncope and collapse Discharge [...] more drinks on one occasion? Never 09/23/2024 [place] Depression Scale Answer Date Recorded [place] Depression Scale Total 0 09/23/2024 The thought [...] tablet by mouth daily. 09/12/2024 Prenat MV-Min w/Cy-Hxlcip-IJH ( COMPLETE PO) 12/25/2018 thiamine (Vitamin B-1) [...] Upcoming Encounters Date Type Department Care Team ([facility] st Contact Info) Description 10/24/2024 8:00 AM EDT Office Visit [facility] [place] [address] [facility], [address] [place] [address] Nneka Vasquez MD [address] [place] [address] 10/24/2024 9:45 AM EDT Routine Medical Office Building Obstetrics and Gynecology [address] [facility], [address] [place] [address] Nneka Gipson MD [address] [place] [address] 12/25/2024 1:00 PM EST Office Visit [facility] Nephrology, Bone & Mineral Metabolism [address] [facility], [address] [place] [address] documented as of this encounter [...] on Day 3 / :47:57 pm SVE(s): [place] was 3.46 %, [address] total SVE(s) SV Arrhythmia(s): 21 events, longest event 7 beats on Day :05:26 am, fastest event 111 bpm on Day :02:39 am PVC(s): [place] was 0.03 %, 189 total PVC(s), 1 [...] Visit Diagnoses Diagnosis Palpitations Syncope and collapse Supervision of high risk , antepartum- Primary documented in this encounter Additional Health Concerns Assessment Noted Time A fall risk assessment has been complete d for the patient 09/26/2024 8:15 AM EDT A Body Mass Index follow-up plan has been documented for the patient 09/27/2024 10:22 AM EDT documented as of this encounter Care Teams Sleeve Separator Relationship Specialty Start Date End Date Norma Friedman APRN [address] [place] [address] PCP - General 09/23/24 Lizz Trinh, RN [facility] Registered Nurse Cardiology 09/26/24 documented as of this encounter
--- OUTSIDE RECORDS SUMMARY | 2024-10-17 09:15 | XMS_ITS | Encounter Summary ---
Author Organization Healthcare Address [address] [place] [address] Care Team Providers Care Air Conditioning Specialist Name Role Phone Norma Friedman JOLENE Primary Care Provider +1- [phone] Lizz Trinh RN Unavailable Unavailable Encounter Details Date Type Department Care Team (Latest Contact Info) Description 10/17/2024 9:15 AM EDT Routine Medical Office Building Obstetrics and Gynecology [address] [facility], [address] [place] [address] Nneka Gipson MD [address] [place] [address] NST (non-stress test) nonreactive (Primary [...] more drinks on one occasion? Never 09/23/2024 [place] Depression Scale Answer Date Recorded [place] Depression Scale Total 0 09/23/2024 The thought [...] Brandan with primary OB Dr Marin in [facility] O+/RI/HCV-/HIV- Needs HBV and syphilis G/C [...] Had tachycardia and arrhythmia during admission to [facility] on 09/19 HR to 170s-180s with [...] Kaitlyn Richter MD PGY-2, Obstetrics and Gynecology [facility] Cosigned by Nneka Gipson MD at 10/17/2024 12:41 PM EDT Associated attestation - Nneka Gipson MD - 10/17/2024 12:41 PM EDT I saw and evaluated the patient with the resident/fellow. I discussed the case with the resident/fellow and agree with the findings and plan as documented. Patient lives in [facility] about 1.5h away, has primary OB [...] Description 10/24/2024 8:00 AM EDT Office Visit [facility] [address] [facility], [address] [place] [address] Nneka Block MD [address] [place] [address] 10/24/2024 9:45 AM EDT Routine Medical Office Building Obstetrics and Gynecology [address] [facility], [address] [place] [address] Nneka Gipson MD [address] [place] [address] 12/25/2024 1:00 PM EST Office Visit [facility] Nephrology, Bone & Mineral Metabolism [address] [facility], [address] [place] [address] documented as of this encounter [...] Urine Negative Negative mg/dL POCT Specific [place], Urine 1.015 POCT Blood, Urine Negative Negative POCT pH, Urine 8.5(A) 5.0 to 8.0 POCT Protein, Urine 30(A) Negative mg/dL POCT Urobilinogen, Urine 0.2 0.2, 1 E.U./dL POCT Nitrite, Urine Negative Negative POCT Leukocyte Esterase, Urine Negative Negative Test Strip Lot Number [id number] Test Strip Lot Expiration 07/2025 Urine Urine specimen obtained by clean catch procedure / Unknown 10/17/2024 9:14 AM EDT Nneka Gipson MD POINT OF CARE TEST ENTER/ EDIT ORDERABLES Final Result documented in this encounter Visit Diagnoses Diagnosis NST (non-stress test) nonreactive- Primary Abnormal findings on screening Supervision of high risk , antepartum Supervision of high risk , antepartum- Primary documented in this encounter Additional Health Concerns Assessment Noted Time A fall risk assessment has been complete d for the patient 09/26/2024 8:15 AM EDT A Body Mass Index follow-up plan has been documented for the patient 10/20/2024 9:52 AM EDT documented as of this encounter Care Teams Air Conditioning Specialist Relationship Specialty Start Date End Date Norma Friedman APRN [address] [place] [address] PCP - General 09/23/24 Lizz Trinh, RN [facility] Registered Nurse Cardiology 09/26/24 documented as of this encounter
--- OUTSIDE RECORDS SUMMARY | 2024-10-17 09:30 | XMS_ITS | Encounter Summary ---
Author Organization Healthcare Address [address] [place] [address] Care Team Providers Care Plasterer Tender Name Role Phone Norma Friedman EXECUTIVE VICE PRESIDENT OF SALES Primary Care Provider +1- [phone] Lizz Trinh RN Unavailable Unavailable Reason for Visit * Reason Comments NST/BPP Visit FGR * Auth/Cert (Routine) Specialty Diagnoses / Procedures Referred By Contac t Referred To Contact Diagnoses Hypokalemia Electrolyte abnormality Hilton Montelongo MD [address] [facility] [address] [place] [address] Phone: tel: fax: [facility] H Labor and Delivery [address] [place] [address] Phone: tel: fax: Referral ID Status Reason Start Date Expiration Date Visits Re quested Visits Authorized [id number] 1 1 Encounter Details Date Type Department Care Team ([facility] st Contact Info) Description 10/17/2024 9:30 AM EDT NST Medical Office Building Obstetrics and Gynecology [address] [facility], [address] [place] [address] growth restriction antepartum (Primary Dx) [...] more drinks on one occasion? Never 09/23/2024 [place] Depression Scale Answer Date Recorded [place] Depression Scale Total 0 09/23/2024 The thought [...] AND GYNECOLOGY for a nonstress test with [facility] RPV. complicated by growth restriction. See [...] Description 10/24/2024 8:00 AM EDT Office Visit [facility] [place] [address] [facility], [address] [place] [address] Nneka Block MD [address] [place] [address] 10/24/2024 9:45 AM EDT Routine Medical Office Building Obstetrics and Gynecology [address] [facility], [address] [place] [address] Nneka Gipson MD [address] [place] [address] 12/25/2024 1:00 PM EST Office Visit [facility] Nephrology, Bone & Mineral Metabolism [address] [facility], [address] [place] [address] documented as of this encounter Visit Diagnoses Diagnosis growth restriction antepartum- Primary Supervision of high risk , antepartum- Primary documented in this encounter Additional Health Concerns Assessment Noted Time A fall risk assessment has been complete d for the patient 09/26/2024 8:15 AM EDT A Body Mass Index follow-up plan has been documented for the patient 10/20/2024 9:52 AM EDT documented as of this encounter Care Teams Plasterer Tender Relationship Specialty Start Date End Date Norma Friedman APRN [address] [place] [address] PCP - General 09/23/24 Lizz Trinh, RN [facility] Registered Nurse Cardiology 09/26/24 documented as of this encounter
--- OUTSIDE RECORDS SUMMARY | 2024-10-17 10:30 | XMS_ITS | Encounter Summary ---
Author Organization Healthcare Address [address] [place] [address] Care Team Providers Care Certified Orthoptist Name Role Phone Norma Friedman APRN Primary Care Provider +1- [phone] Lizz Trinh RN Unavailable Unavailable Reason for Visit * Imaging (Routine) - Closed Specialty Diagnoses / Procedures Referred By Tarik t Referred To Contact Obstetrics Diagnoses NST (non-stress test) nonreactive Procedures OB US Detail Anatomy OB US Biophysical Profile w Non Stress Test Nneka Gipson MD [address] [place] [address] Phone: tel: fax: Referral ID Status Reason Start Date Expiration Date Visits Re quested Visits Authorized [id number] Closed 10/17/2024 04/18/2026 1 1 Encounter Details Date Type Department Care Team (Latest Contact Info) Description 10/17/2024 10:30 AM EDT - 10/17/2024 3:46 PM EDT Hospital Encounter Medical Office Building Obstetrics and Gynecology [address] [facility], [address] [place] [address] NST (non-stress test) nonreactive Discharge [...] drinks on one occasion? Never 09/23/2024 [place] Depression Scale Answer Date Recorded [place] Depression Scale Total 0 09/23/2024 The thought [...] 3 times a day. 30 tablet 10/20/2024 FeroSul 325 (65 Fe) MG tablet Take [...] not crush, chew, or split. Prenat MV-Min w/Mp-Cikosp-GXK ( COMPLETE PO) 12/25/2018 promethazine (Phenergan) 12.5 [...] Upcoming Encounters Date Type Department Care Team ([facility] st Contact Info) Description 10/24/2024 8:00 AM EDT Office Visit [facility] [place] [address] [facility], [address] [place] [address] Nneka Block MD [address] [place] [address] 10/24/2024 9:45 AM EDT Routine Medical Office Building Obstetrics and Gynecology [address] [facility], [address] [place] [address] Nneka Gipson MD [address] [place] [address] 12/25/2024 1:00 PM EST Office Visit [facility] Nephrology, Bone & Mineral Metabolism [address] [facility], [address] [place] [address] documented as of this encounter [...] Please navigate to the Imaging tab in [employer] for review. This message has been generated by the interface. Narrative Procedure Note Melonie Wheeler MD - 10/17/2024 IMPRESSION: The OB Ultrasound you requested has been resulted. Please navigate to theImaging tab in [employer] for review. This message has been generated by [employer]. us Nneka Gipson MD IMG OB US PROCEDURES Lena l Result documented in this encounter Visit Diagnoses Diagnosis NST (non-stress test) nonreactive Abnormal findings on screening Supervision of high risk , antepartum- Primary documented in this encounter Additional Health Concerns Assessment Noted Time A fall risk assessment has been complete d for the patient 09/26/2024 8:15 AM EDT A Body Mass Index follow-up plan has been documented for the patient 10/20/2024 9:52 AM EDT documented as of this encounter Care Teams Certified Orthoptist Relationship Specialty Start Date End Date Norma Friedman APRN [address] [place] [address] PCP - General 09/23/24 Lizz Trinh, RN [facility] Registered Nurse Cardiology 09/26/24 documented as of this encounter
--- OUTSIDE RECORDS SUMMARY | 2024-10-17 15:47 | XMS_ITS | Encounter Summary ---
Author Organization Healthcare Address [address] [place] [address] Care Team Providers Care News Technical Director Name Role Phone Valentino burgerseven Coy HY[employer] SITE MANAGER Primary Care Provider [phone] Lizz Trinh RN Unavailable Unavailable Reason for Visit * Auth/Cert (Routine) Specialty Diagnoses / Procedures Referred By Tarik pedersen Referred To Contact Diagnoses Hypokalemia Electrolyte abnormality Hilton Montelongo MD [address] [address] Phone: tel: fax: [facility] [address] [place] [address] Phone: tel: fax: Referral ID Status Reason Start Date Expiration Date Visits Re quested Visits Authorized [id number] 1 1 Encounter Details Date Type Department Care Team (Latest Contact Info) Description 10/17/2024 3:47 PM EDT - 10/20/2024 10:16 AM EDT Hospital Encounter [facility] [address] [place] [address] Hilton Montelongo MD [address] [address] Discharge Disposition: Home or Self [...] more drinks on one occasion? Never 09/23/2024 [place] Depression Scale Answer Date Recorded [place] Depression Scale Total 0 09/23/2024 The thought [...] not crush, chew, or split. Prenat MV-Min w/Xm-Evdtuu-UKP ( COMPLETE PO) 12/25/2018 promethazine (Phenergan) 12.5 [...] Herrmann MD PhD Division of Hospital Medicine [phone] [1] azithromycin, 500 mg, Intravenous, Once in [...] famotidine OR famotidine PF, hydrOXYzinepamoate, magic mouthwash diphen/lido/iktb-zgv-rzluvx, melatonin, ondansetron ODT OR ondansetronOR ondansetron, prochlorperazine, promethazine, Insert peripheral IV AND Saline lock IV AN D sodium chloride, terbutaline * Sybil Real RN - 10/20/2024 9:51 AM EDT Images from the original note were not included. [id number] Hypokalemia Hypokalemia means a low level of [...] consciousness Last Reviewed Date: 2022 00:00:00 ?? [id number] [employer]. All rights reserved. This information is not [...] with a nurse. [facility] (Triage) [facility] [address] [place] [address] [facility] Obstetrics [facility] Gyne[facility] Medical Office Building [address], [address] [place] [address] [facility] [address] [place] [address] Family Practice [address], Third Floor [address] [place] [address] [facility] [address] [place] [address] [facility] Obstetrics & Gynecology [place] [address] [place] [address] [facility] Obstetrics & Gynecology [place] [address] [place] [address] * Discharge Summary - Shazia Booker MD - 10/20/2024 9:50 AM EDT Images from the original note were not included. Hospitalization Admit Date/Time: 10/17/2024 3:47 PM Admitting Attending: Hilton Montelongo Discharge Date: 10/20/2024 Discharge Attending Physician: Laury Cruz MD PCP name and Address: Norma Friedman, HYDRO PLANT SITE MANAGER [address] [facility] / [place] [id number] Referring provider name and address: No referring [...] Your Medications These medications were sent to [facility] [place], [place] - [address] [facility] [id number] cyclobenzaprine 5 MG tablet hydrOXYzine pamoate 25 [...] Center 10/24/2024 8:00 AM Nneka Block MD [facility] 10/24/2024 9:45 AM Nneka Gipson MD OBMFMGSMOB [facility] 12/25/2024 1:00 PM (ARIEL REYNA FELLOW [facility] PAC Test Results Pending At Discharge Pending [...] status upon discharge. Will schedule delivery at [facility] visit this week. Given the persistent and worsening electrolyteabnormalities resulting in cardiac arrhythmias despite aggressive IV and PO supplementation, it would be reasonable to move toward delivery sooner then previously planned. * Sybil Real, RN - 10/20/2024 9:50 AM EDT Images from the original note were not included. [id number] About Arrhythmias Your heart beats about 60 [...] the doctor as soon as youcan to roll picker the device. You may have other [...] them. Last Reviewed Date: 2023 00:00:00 ?? [id number] [employer]. All rights reserved. This information is not [...] use. Last Reviewed Date: 2021 00:00:00 ?? [id number] [employer]. All rights reserved. This information is not [...] care, please call OB resident workroom at #[phone]. Susi Wren MD PGY3 Obstetrics and Gynecology [...] magnesium, potassium chloride and ursodiol ordered for 2099. Once RN talked with patient, she stated [...] present and clear. Leads intact. Batteries changed. [id number]. Will continue to monitor. Vitals: 10/19/24 1735 [...] Herrmann MD PhD Division of Hospital Medicine [phone] [1] azithromycin, 500 mg, Intravenous, Once in [...] Status Stable. Patient on remote telemetry box [id number]. Has good signal and function. Lead placement [...] Presley Date of : 1990 [facility] Reason for consultation: Epigastric pain Subjective: [...] Elvis Kay MD GI Fellow, PGY-5 Pager: [phone] [1] Past Medical History: Diagnosis Date Maternal [...] TOOTH EXTRACTION N/A Oral Surgery Tooth Extraction Hermitage Tooth from [employer] [3] Family History Problem Relation Name Age [...] Santos Herrmann MD, 800 mg at 10/19/24 0802 melatonin tablet 3 mg, 3 mg, Oral, [...] Santos Herrmann MD, 2 packet at 10/18/24 2112 potassium chloride CR (Klor-Con) ER tablet 40 mEq, 40 mEq, Oral, TID, Mo Guaman MD, 40 mEq at 10/19/24 0802 potassium chloride IVPB 10 mEq, 10 mEq, [...] pt Multiple Births: No Uterine Activity Mode: [place] Contraction Frequency: one traced Contraction Duration: 140 [...] care, please call OB resident workroom at #[phone]. Shazia Booker MD OBGYN Resident PGY-3 Cosigned [...] Does have intermittent depressed T waves. Hard registered nurse cardiac telemetry at bedside. * Care Plan - Tex Harman RN - 10/18/2024 5:44 PM EDT Problem: Adult Inpatient Plan of Care Goal: Plan of Care Review Outcome: Ongoing, Progressing Flowsheets Taken 10/18/2024 174 by Tex Harman RN Progress: improving Taken [...] Intervention: Promote Patient- Wellbeing Flowsheets (Taken 10/18/2024 1743) Wellbeing Promotion: heart rate monitored Intervention: Support Psychosocial Response Flowsheets Taken 10/18/2024 1743 by Tex [place]man RN Supportive Measures: decision-making [...] Resource Strain: Low Risk (05/28/2024) Received from [facility] Overall Financial Resource Strain (CARDIA) Difficulty of Paying Living Expenses: Not hard at all Food Insecurity: No Food Insecurity (05/28/2024) Received from [facility] Hunger Vital Sign Within the past 12 months, you worried that your food would run out before you got the money to buymore.: Never true Within the past 12 months, the food you bought just didn't last and you didn't have money to get more.: Never true Transportation Needs: No Transportation Needs (05/28/2024) Received from [facility] PRAPARE - Transportation In the past 12 months, has lack of transportation kept you from medical appointments or from getting medications?: No In the past 12 months, has lack of transportation kept you from meetings, work, or from getting things needed for daily living?: No Physical Activity: Sufficiently Active (05/28/2024) Received from [facility] Exercise Vital Sign On average, how many days per week do you engage in moderate to strenuous exercise (like a brisk walk)?: 5 days On average, how many minutes do you engage in exercise at this level?: 40 min Stress: Stress Concern Present (05/27/2024) Received from [facility] [place] [facility] Occupational [facility] - Occupational Stress Questionnaire Feeling of Stress : To some extent Social Connections: Not At Risk (05/28/2024) Received from [facility] Family and Community Support If for any reason you need help with day-to-day activities such as bathing, preparing meals, shopping, managing finances, etc., do you get the help you need?: I don't need any help How often do you feel lonely or isolated from those around you?: Sometimes Intimate Partner Violence: Not At Risk (08/19/2024) Received from [facility] Abuse Screen Feels Unsafe at Home or Work/School: no Feels Threatened by Someone: no Does Anyone Try to Keep You From Having Contact with Others or Doing Things Outside Your Home?: no Physical Signs of Abuse Present: no Housing Stability: Not At Risk (08/20/2024) Received from [facility] Housing Stability Current Living Arrangements: home [...] follow. Urbano Donohue DO Nephrology Fellow Page [phone] [1] Past Medical History: Diagnosis Date Maternal [...] Date SECTION, LOW TRANSVERSE N/A section from [employer] DILATION AND CURETTAGE OF UTERUS N/A Dilation and curettage from [employer] WISDOM TOOTH EXTRACTION N/A Oral Surgery Tooth Extraction Hermitage Tooth from [employer] [4] Family History Problem Relation Name Age [...] abnormalities Santos Herrmann MD PhD Division of [facility] Medicine [phone] [1] azithromycin, 500 mg, Intravenous, Once in [...] Resource Strain: Low Risk (05/28/2024) Received from [facility] Overall Financial Resource Strain (CARDIA) Difficulty of Paying Living Expenses: Not hard at all Food Insecurity: No Food Insecurity (05/28/2024) Received from [facility] Hunger Vital Sign Within the past 12 months, you worried that your food would run out before you got the money to buymore.: Never true Within the past 12 months, the food you bought just didn't last and you didn't have money to get more.: Never true Transportation Needs: No Transportation Needs (05/28/2024) Received from [facility] PRAPARE - Transportation In the past 12 months, has lack of transportation kept you from medical appointments or from getting medications?: No In the past 12 months, has lack of transportation kept you from meetings, work, or from getting things needed for daily living?: No Physical Activity: Sufficiently Active (05/28/2024) Received from [facility] Exercise Vital Sign On average, how many days per week do you engage in moderate to strenuous exercise (like a brisk walk)?: 5 days On average, how many minutes do you engage in exercise at this level?: 40 min Stress: Stress Concern Present (05/27/2024) Received from [facility] [place] [facility]ational [facility] - Occupational Stress Questionnaire Feeling of Stress : To some extent Social Connections: Not At Risk (05/28/2024) Received from [facility] Family and Community Support If for any reason you need help with day-to-day activities such as bathing, preparing meals, shopping, managing finances, etc., do you get the help you need?: I don't need any help How often do you feel lonely or isolated from those around you?: Sometimes Intimate Partner Violence: Not At Risk (08/19/2024) Received from [facility] Abuse Screen Feels Unsafe at Home or Work/School: no Feels Threatened by Someone: no Does Anyone Try to Keep You From Having Contact with Others or Doing Things Outside Your Home?: no Physical Signs of Abuse Present: no Housing Stability: Not At Risk (08/20/2024) Received from [facility] Housing Stability Current Living Arrangements: home [...] and consequences of such a bleed, including commissioner of officials neurodevelopmental delay. I outlined the plans for [...] Date SECTION, LOW TRANSVERSE N/A section from [employer] DILATION AND CURETTAGE OF UTERUS N/A Dilation and curettage from [employer] WISDOM TOOTH EXTRACTION N/A Oral Surgery Tooth Extraction Hermitage Tooth from [employer] [3] No current facility-administered medications on file [...] Do not crush,chew, or split. Prenat MV-Min w/Vz-Zqzuny-IIB ( COMPLETE PO) promethazine (Phenergan) 12.5 MG [...] Review Outcome: Ongoing, Progressing Flowsheets (Taken 10/18/2024 030) Progress: no change Plan of Care Reviewed With: patient Goal: Patient-Specific Goal (Individualized) Outcome: Ongoing, Progressing Flowsheets (Taken 10/18/2024 030) Patient/Family-Specific Goals (Include Timeframe): PT will report [...] with prior who initially presented to the [facility] with chief complaint of dyspnea and chest [...] 10 mEq, 2 times daily Prenat MV-Min w/Ae-Drzajk-FPX ( COMPLETE PO) thiamine (VITAMIN B-1) 100 [...] y.o. female who initially presented to the [facility] todaywith chief complaint of -related chest pain, [...] her dyspnea Please page the on-call paper carrier with any further questions. I spent 45 minutes performing the following components of the encounter (on the day of the encounter): reviewing History, examining the patient, reviewing imaging and/or labs, Independently interpreting echocardiogram, ECG and/or other imaging results, counseling the patient and family/caregiver, communicating with other health day care assistant, care coordination, and entering clinical information in the EHR. Greater than 50% of the time spent on the encounter was face to face providing direct patient care, counseling for the patient/caregiver, and care coordination. Ania Mccabe DO PGY-4 [facility] 10/18/24 4:22 AM [1] Past Medical History: [...] TOOTH EXTRACTION N/A Oral Surgery Tooth Extraction Hermitage Tooth from [employer] Cosigned by Noel Osman MD at 10/18/2024 [...] as well. She currently takes daily PO [id number] and PO magnesium 1600mg in addition to [...] 10 mEq, 2 times daily Prenat MV-Min w/Gh-Bwvoyc-EDI ( COMPLETE PO) thiamine (VITAMIN B-1) 100 [...] - rest of care per primary team yNa Logn MD Internal Medicine PGY-2 Pager: [phone] [1] Allergies Allergen Reactions Bismuth Subsalicylate Other [...] Nieto MD - 10/17/2024 5:05 PM EDT [facility] OBSTETRICS OBSTETRIC EMERGENCY HISTORY & PHYSICAL Patient Name: Whitney Presley : 1990 CHIEF CONCERN: Non-reactive NST, SOA PRIMARY OB: Boby Marin MD Subjective Subjective HPI: Whitney Presley is a 34 y.o. at 33w4d (12/01/2024) who presents with shortness of breath and chest pain that started 2 hours ago. States that she went to see M today and she had an US and failed her BPP and had a non- reactive NST. She also has a complicated past medical history duringthis in which she follows with M, cardiology, and nephrology. is [...] 10 mEq, 2 times daily Prenat MV-Min w/Fl-Nheyed-ENG ( COMPLETE PO) thiamine (VITAMIN B-1) 100 [...] and management. Please contact first-call provider on [email or web address] Secure Chat for questions or concerns. For emergencies [place] [phone]. Jasen Li DO Family Medicine, PGY-1 [facility] Chinyere Cordova MD Obstetrics and Gynecology, PGY-3 [...] TOOTH EXTRACTION N/A Oral Surgery Tooth Extraction Hermitage Tooth from [employer] [3] Social History Tobacco [...] Description 10/24/2024 8:00 AM EDT Office Visit [facility] [place] [address] [place] [address] Nneka Block MD [address] [place] [address] 10/24/2024 9:45 AM EDT Routine Medical Office Building Obstetrics and Gynecology [address], [address] [place] [address] Nneka Gipson MD [address] [place] [address] 12/25/2024 1:00 PM EST Office Visit [facility] Nephrology, Bone & Mineral Metabolism [address], [address] [place] [address] Pending Results Name Type Priority Associated Diagnoses Date /Time Plasma Renin Activity (LC/MS/MS) Lab Routine 10/18/2024 10:56 PM EDT Aldosterone, urine, 24 hour Lab Routine 10/19/2024 2:42 PM EDT Brooke Mejias Virus (EBV) Quantitative PCR Lab Routine 10/19/2024 9:28 PM EDT Scheduled Orders Name Type Priority Associated Diagnoses Orde r Schedule Plasma Renin Activity (LC/MS/MS) Lab Routine Morning draw (La b) for 1 Occurrences starting 10/19/2024 until 10/19/2024 Aldosterone, urine, 24 hour Lab Routine Once [...] EDT PROTEIN, URINE, 24 HOUR Routine 10/20/19 25 2:43 PM EDT POTASSIUM, URINE, 24 HOUR [...] EDT ALDOSTERONE Routine 10/18/2024 10:56 PM EDT PHOSPHORUS, PLASMA [...] Detected(AA) Not Detected 10/21/2024 11:30 AM EDT [facility] Comment:Previously prelim ve rified as Not Detected on 10/20/2024 at 1221 EDT. Herpes Simplex Virus 2 (HSV-2) PCR Result Not Detected Not Detected 10/21/2024 11:30 AM EDT [facility] Serum Venous blood specimen / Unknown 10/19/2024 9:28 PM EDT 10/19/2024 11:58 PM EDT Narrative [facility] - 10/21/2024 11:30 AM EDT This PCR assay was developed and its performance characteristics determined by [facility] as appropriate for clinical purposes. This assay has not been cleared or approved by the FDA, but is performed in a CLIA regulated laboratory that is qualified to perform high-complexity testing. This PCR assay was developed and its performance characteristics determined by [facility] as appropriate for clinical purposes. This assay has not been cleared or approved by the FDA, but is performed in a CLIA regulated laboratory that is qualified to perform high-complexity testing. This PCR assay was developed and its performance characteristics determined by [facility] as appropriate for clinical purposes. This assay has not been cleared or approved by the FDA, but is performed in a CLIA regulated laboratory that is qualified to perform high-complexity testing. us Hilton Montelongo MD LAB MICROBIOLOGY - GENERAL OR DERABLES Final Result Performing Organization Address [facility]/ZIP Co de Phone Number [facility] [address] [place] [address] * Cytomegalovirus (CMV) Quantitative PCR (10/19/2024 9:28 PM EDT) [facility] Cytomegalovirus (CMV) Quantitative Interpretation Not Detected Not Detected 10/21/2024 12:44 PM EDT [facility] Blood Venous blood specimen / Unknown Venipuncture / Unknown 10/19/2024 9:28 PM EDT 10/19/2024 11:58 PM EDT Narrative [facility] - 10/21/2024 12:44 PM EDT [facility] M2000 CMV test is a Real Time [...] ORDERABLES Final Re sult Performing Organization Address City/[facility]/ZIP Co de Phone Number [facility] [address] [place] [address] * Phosphorus, Plasma (10/19/2024 9:28 PM EDT) Phosphorus, Plasma 2.5 2.5 - 4.5 mg/dL 10/19/2024 10:07 PM EDT [facility] Blood Venous blood specimen / Unknown Venipuncture / Unknown 10/19/2024 9:28 PM EDT 10/19/2024 9:38 PM EDT us Santos Herrmann MD LAB BLOOD ORDERABLES Final Resu lt Performing Organization Address [facility] Co de Phone Number [facility] [address] [place] [address] * (ABNORMAL) Magnesium (10/19/2024 9:28 PM EDT) Pathologist [facility] Magnesium, Plasma 1.7(L) 1.9 - 2.4 mg/dL 10/19/2024 10:07 PM EDT [facility] Blood Venous blood specimen / Unknown Venipuncture / Unknown 10/19/2024 9:28 PM EDT 10/19/2024 9:38 PM EDT Santos Herrmann MD LAB BLOOD ORDERABLES Final Resu lt Performing Organization Address [facility] de Phone Number [facility] [address] [place] [address] * (ABNORMAL) Basic metabolic panel (10/19/2024 9:28 PM EDT) [facility] Glucose, Plasma 78 74 - 99 mg/dL 10/19/2024 10:07 PM EDT [facility] BUN, Plasma 4(L) 7 - 21 mg/dL 10/19/2024 10:07 PM EDT [facility] Creatinine, Plasma 0.61 0.60 - 1.10 mg/dL 10/19/2024 10:07 PM EDT [facility] BUN/Creatinine Ratio 7 10/19/2024 10:07 PM EDT [facility] Sodium, Plasma 137 136 - 145 mmol/L 10/19/2024 10:07 PM EDT [facility] Potassium, Plasma 4.3 3.6 - 4.9 mmol/L 10/19/2024 10:07 PM EDT [facility] Chloride, Plasma 108(H) 97 - 107 mmol/L 10/19/2024 10:07 PM EDT [facility] CO2, Plasma 20(L) 22 - 29 mmol/L 10/19/2024 10:07 PM EDT [facility] Anion Gap 9 6 - 16 mmol/L 10/19/2024 10:07 PM EDT [facility] Total Calcium, Plasma 7.8(L) 8.9 - 10.2 mg/dL 10/19/2024 10:07 PM EDT [facility] eGFRcr 121.2 mL/min/1.7 3m*2 10/19/2024 10:07 PM EDT [facility] Comment:Reported eGFRcr in m L/min/1.73m2 is based the CKD-EPI 2020 equation that does not use a race coefficient. Blood Venous blood specimen / Unknown Venipuncture / Unknown 10/19/2024 9:28 PM EDT 10/19/2024 9:38 PM EDT us Santos Herrmann MD LAB BLOOD ORDERABLES Final Resu lt Performing Organization Address City/State/[facility] Co de Phone Number [facility] [address] [place] [address] * ECG Adult (10/19/2024 6:45 PM EDT) EKG DIAGNOSIS CLASS Normal MUSE ECG Ventricular Rate 82 BPM MUSE ECG Atrial Rate 82 BPM MUSE ECG UT Interval 138 ms MUSE ECG QRSD Interval 80 ms MUSE ECG QT Interval 360 ms MUSE ECG QTC Interval 420 ms MUSE ECG P Radisson 46 degrees MUSE ECG R Radisson 29 degrees MUSE ECG T Wave Radisson 36 degrees MUSE ECG Diagnosis Normal sinus rhythm MUSE ECG Diagnosis Normal ECG MUSE ECG Diagnosis MUSE ECG Diagnosis Confirmed by Noel Osman ([id number]) on 10/20/2024 12:15:29 PM MUSE ECG 10/19/2024 6:45 PM EDT 10/20/2024 12:15 PM EDT us Hilton Montelongo MD ECG ORDERABLES Final Result MUSE ECG * (ABNORMAL) Hepatic function panel (10/19/2024 5:12 PM EDT) Direct Bilirubin, Plasma <0.2 <=0.3 mg/dL 10/19/2024 7:32 PM EDT [facility] Alkaline Phosphatase, Plasma 68 35 - 104 U/L 10/19/2024 7:32 PM EDT [facility] Total Bilirubin, Plasma 0.3 0.2 - 1.1 mg/dL 10/19/2024 7:32 PM EDT [facility] Albumin, Plasma 2.5(L) 3.5 - 5.2 g/dL 10/19/2024 7:32 PM EDT [facility] Total Protein 5.2(L) 6.3 - 7.9 g/dL 10/19/2024 7:32 PM EDT [facility] ALT, Plasma 48(H) 10 - 35 U/L 10/19/2024 7:32 PM EDT [facility] AST, Plasma 35 10 - 35 U/L 10/19/2024 7:32 PM EDT [facility] Blood Venous blood specimen / Unknown Venipuncture / Unknown 10/19/2024 5:12 PM EDT 10/19/2024 5:30 PM EDT us Hilton Montelongo MD LAB BLOOD ORDERABLES Final Re sult [facility] [address] [place] [address] * (ABNORMAL) Phosphorus, Plasma (10/19/2024 5:12 PM EDT) Phosphorus, Plasma 2.2(L) 2.5 - 4.5 mg/dL 10/19/2024 6:02 PM EDT [facility] Blood Venous blood specimen / Unknown Venipuncture / Unknown 10/19/2024 5:12 PM EDT 10/19/2024 5:30 PM EDT us Santos Herrmann MD LAB BLOOD ORDERABLES Final Resu lt [facility] [address] [place] [address] * (ABNORMAL) Magnesium (10/19/2024 5:12 PM EDT) Magnesium, Plasma 1.5(L) 1.9 - 2.4 mg/dL 10/19/2024 6:02 PM EDT [facility] Blood Venous blood specimen / Unknown Venipuncture / Unknown 10/19/2024 5:12 PM EDT 10/19/2024 5:30 PM EDT Sanots Herrmann MD LAB BLOOD ORDERABLES Final Resu lt Performing Organization Address City/[facility]/ZIP Co de Phone Number [facility] [address] [place] [address] * (ABNORMAL) Basic metabolic panel (10/19/2024 5:12 PM EDT) Glucose, Plasma 121(H) 74 - 99 mg/dL 10/19/2024 6:02 PM EDT [facility] BUN, Plasma 4(L) 7 - 21 mg/dL 10/19/2024 6:02 PM EDT [facility] Creatinine, Plasma 0.58(L) 0.60 - 1.10 mg/dL 10/19/2024 6:02 PM EDT [facility] BUN/Creatinine Ratio 7 10/19/2024 6:02 PM EDT [facility] [facility] Sodium, Plasma 137 136 - 145 mmol/L 10/19/2024 6:02 PM EDT [facility] Potassium, Plasma 4.0 3.6 - 4.9 mmol/L 10/19/2024 6:02 PM EDT [facility] Chloride, Plasma 105 97 - 107 mmol/L 10/19/2024 6:02 PM EDT [facility] CO2, Plasma 20(L) 22 - 29 mmol/L 10/19/2024 6:02 PM EDT [facility] Anion Gap 12 6 - 16 mmol/L 10/19/2024 6:02 PM EDT [facility] Total Calcium, Plasma 8.0(L) 8.9 - 10.2 mg/dL 10/19/2024 6:02 PM EDT [facility] eGFRcr 122.7 mL/min/1.7 3m*2 10/19/2024 6:02 PM EDT [facility] Comment:Reported eGFRcr in m L/min/1.73m2 is based the CKD-EPI 2020 equation that does not use a race coefficient. Blood Venous blood specimen / Unknown Venipuncture / Unknown 10/19/2024 5:12 PM EDT 10/19/2024 5:30 PM EDT us Santos Herrmann MD LAB BLOOD ORDERABLES Final Resu lt [facility] [address] [place] [address] * US Abdomen Focused Region Liver, GB, [...] Urine <6 mg/dL 10/19/2024 3:39 PM EDT [facility] Total Protein per day 10/19/2024 3:39 PM EDT [facility] Comment:Unable to calculate, at least one value is above or below the detection limit. Hours Of Collection 24 HRS 10/19/2024 3:39 PM EDT [facility] Urine, Volume 2,750 mL 10/19/2024 3:39 PM EDT [facility] Urine Urine specimen obtained by clean catch procedure / Unknown Non-blood Collection / Unknown 10/19/2024 2:43 PM EDT 10/19/2024 2:52 PM EDT Narrative [facility] - 10/19/2024 3:39 PM EDT Reference Range <80 mg/day if bed rest <150 mg/day if ambulatory us Santos Herrmann MD LAB URINE ORDERABLES Final Resu lt [facility] [address] [place] [address] * Potassium, Urine, 24 Hour (10/19/2024 2:43 PM EDT) Potassium, Urine 20 mmol/L 10/19/2024 3:39 PM EDT [facility] Hours Of Collection 24 HRS 10/19/2024 3:39 PM EDT [facility] Urine, Volume 2,750 mL 10/19/2024 3:39 PM EDT [facility] Potassium per day, Urine 55 18 - 58 mmol/d 10/19/2024 3:39 PM EDT [facility] Urine Urine specimen obtained by clean catch procedure / Unknown Non-blood Collection / Unknown 10/19/2024 2:43 PM EDT 10/19/2024 2:52 PM EDT us Santos Herrmann MD LAB URINE ORDERABLES Final Resu lt Performing Organization Address [facility] de Phone Number [facility] [address] [place] [address] * Sodium, 24 Hour, Urine (10/19/2024 2:43 PM EDT) Sodium, Urine 45 mmol/L 10/19/2024 3:39 PM EDT [facility] Sodium per day 124 48 - 168 mmol/d 10/19/2024 3:39 PM EDT [facility] Hours Of Collection 24 HRS 10/19/2024 3:39 PM EDT [facility] Urine, Volume 2,750 mL 10/19/2024 3:39 PM EDT [facility] Urine Urine specimen obtained by clean catch procedure / Unknown Non-blood Collection / Unknown 10/19/2024 2:43 PM EDT 10/19/2024 2:52 PM EDT us Santos Herrmann MD LAB URINE ORDERABLES Final Resu lt Performing Organization Address [facility] Co de Phone Number [facility] [address] [place] [address] * Phosphorus, Urine, 24 Hour (10/19/2024 2:43 PM EDT) Phosphorus, Urine 29.1 mg/dL 10/19/2024 3:24 PM EDT [facility] Phosphorus per day, Urine 0.8 0.4 - 1.3 g/d 10/19/2024 3:24 PM EDT [facility] Hours Of Collection 24 HRS 10/19/2024 3:24 PM EDT [facility] Urine, Volume 2,750 mL 10/19/2024 3:24 PM EDT [facility] Urine Urine specimen obtained by clean catch procedure / Unknown Non-blood Collection / Unknown 10/19/2024 2:43 PM EDT 10/19/2024 2:53 PM EDT us Santos Herrmann MD LAB URINE ORDERABLES Final Resu lt Performing Organization Address [facility] Co de Phone Number [facility] [address] [place] [address] * (ABNORMAL) Magnesium, urine, 24 hour (10/19/2024 2:43 PM EDT) Magnesium, Random Urine 24.3 mg/dL 10/19/2024 3:24 PM EDT [facility] Magnesium per day 668.3(H) 70.0 - 120.0 mg/d 10/19/2024 3:24 PM EDT [facility] Hours Of Collection 24 HRS 10/19/2024 3:24 PM EDT [facility] Urine, Volume 2,750 mL 10/19/2024 3:24 PM EDT [facility] Urine Urine specimen obtained by clean catch procedure / Unknown Non-blood Collection / Unknown 10/19/2024 2:43 PM EDT 10/19/2024 2:53 PM EDT us Santos Herrmann MD LAB URINE ORDERABLES Final Resu lt Performing Organization Address [facility] Co de Phone Number [facility] [address] [place] [address] * Creatinine, 24 Hour Urine (10/19/2024 2:43 PM EDT) Creatinine, Urine 30 mg/dL 10/19/2024 3:39 PM EDT [facility] Creatinine per day, Urine 825 500 - 1,600 mg/d 10/19/2024 3:39 PM EDT [facility] Hours Of Collection 24 HRS 10/19/2024 3:39 PM EDT [facility] Urine, Volume 2,750 mL 10/19/2024 3:39 PM EDT [facility] Urine Urine specimen obtained by clean catch procedure / Unknown Non-blood Collection / Unknown 10/19/2024 2:43 PM EDT 10/19/2024 2:52 PM EDT Santos Herrmann MD LAB URINE ORDERABLES Final Resu lt Performing Organization Address [facility]/ZIP Co de Phone Number [facility] [address] [place] [address] * Chloride, 24 Hour Urine (10/19/2024 2:43 PM EDT) Chloride, Urine <20 mmol/L 3:39 PM EDT [facility] Hours Of Collection 24 HRS 10/19/2024 3:39 PM EDT [facility] Urine, Volume 2,750 mL 10/19/2024 3:39 PM EDT [facility] Chloride per day, Urine 10/19/2024 3:39 PM EDT [facility] Comment:Unable to calculate, at least one value is above or below the detection limit. Urine Urine specimen obtained by clean catch procedure / Unknown Non-blood Collection / Unknown 10/19/2024 2:43 PM EDT 10/19/2024 2:52 PM EDT Santos Herrmann MD LAB URINE ORDERABLES Final Resu lt Performing Organization Address City/[facility] Co de Phone Number [facility] [address] [place] [address] * Calcium, 24 Hour Urine (10/19/2024 2:43 PM EDT) Calcium, Urine 3.1 mg/dL 10/19/2024 3:24 PM EDT [facility] Calcium per day, Urine 85 mg/day 10/19/2024 3:24 PM EDT [facility] Hours Of Collection 24 HRS 10/19/2024 3:24 PM EDT [facility] Urine, Volume 2,750 mL 10/19/2024 3:24 PM EDT [facility] Urine Urine specimen obtained by clean catch procedure / Unknown Non-blood Collection / Unknown 10/19/2024 2:43 PM EDT 10/19/2024 2:53 PM EDT Narrative [facility] - 10/19/2024 3:24 PM EDT Free Ca diet 5 - 40 mg/d Low to average Ca diet 50 - 150 mg/d Average Ca diet 100 - 300 mg/d us Santos Herrmann MD LAB URINE ORDERABLES Final Resu lt Performing Organization Address City/[facility]/ZIP Co de Phone Number [facility] [address] [place] [address] * Albumin-creatinine ratio, 24 hr urine (10/19/2024 2:43 PM EDT) Microalbumin, Urine <1.2 <1.9 mg/dL 10/19/2024 3:39 PM EDT [facility] Albumin per day 3:39 PM EDT [facility] Comment:Unable to calculate, at least one value is above or below the detection limit. Microalbumin Excretion Rate 10/19/2024 3:39 PM EDT [facility] Comment:Unable to calculate, at least one value is above or below the detection limit. Creatinine, Urine 30 mg/dL 025 3:39 PM EDT [facility] Creatinine, 24H Ur 825 500 - 1,600 mg/d 10/19/2024 3:39 PM EDT [facility] Comment:Unable to calculate, at least one value is above or below the detection limit. Albumin/Creatinin e Ratio 10/19/2024 3:39 PM EDT [facility] Comment:Unable to calculate, at least one value is above or below the detection limit. Hours Of Collection 24 HRS 10/19/2024 3:39 PM EDT [facility] Urine, Volume 2,750 mL 10/19/2024 3:39 PM EDT [facility] Urine Urine specimen obtained by clean catch procedure / Unknown Non-blood Collection / Unknown 10/19/2024 2:43 PM EDT 10/19/2024 2:52 PM EDT us Santos Hrermann MD LAB URINE ORDERABLES Final Resu lt Performing Organization Address City/[facility]/ZIP Co de Phone Number [facility] [address] [place] [address] * Magnesium (10/19/2024 7:03 AM EDT) Magnesium, Plasma 2.1 1.9 - 2.4 mg/dL 10/19/2024 7:54 AM EDT [facility] Blood Venous blood specimen / Unknown Venipuncture / Unknown 10/19/2024 7:03 AM EDT 10/19/2024 7:06 AM EDT us Hilton Montelongo MD LAB BLOOD ORDERABLES Final Re sult [facility] [address] [place] [address] * Phosphorus (10/19/2024 7:03 AM EDT) Phosphorus, Plasma 3.3 2.5 - 4.5 mg/dL 10/19/2024 7:54 AM EDT [facility] Blood Venous blood specimen / Unknown Venipuncture / Unknown 10/19/2024 7:03 AM EDT 10/19/2024 7:06 AM EDT us Hilton Montelongo MD LAB BLOOD ORDERABLES Final Re sult Performing Organization Address [facility]/ZIP Co de Phone Number [address] [address] * Phosphorus, Plasma (10/19/2024 7:03 AM EDT) Phosphorus, Plasma 3.3 2.5 - 4.5 mg/dL 10/19/2024 7:32 AM EDT [facility] Blood Venous blood specimen / Unknown Venipuncture / Unknown 10/19/2024 7:03 AM EDT 10/19/2024 7:06 AM EDT us Hilton Montelongo MD LAB BLOOD ORDERABLES Final Re sult Performing Organization Address City/[facility]/ZIP Co de Phone Number [address] [address] * Magnesium (10/19/2024 7:03 AM EDT) Magnesium, Plasma 2.1 1.9 - 2.4 mg/dL 10/19/2024 7:32 AM EDT [facility] Blood Venous blood specimen / Unknown Venipuncture / Unknown 10/19/2024 7:03 AM EDT 10/19/2024 7:06 AM EDT us Hilton Montelongo MD LAB BLOOD ORDERABLES Final Re sult [facility] [address] [place] [address] * (ABNORMAL) Basic metabolic panel (10/19/2024 7:03 AM EDT) Glucose, Plasma 88 74 - 99 mg/dL 10/19/2024 7:36 AM EDT [facility] BUN, Plasma 6(L) 7 - 21 mg/dL 10/19/2024 7:36 AM EDT [facility] Creatinine, Plasma 0.60 0.60 - 1.10 mg/dL 10/19/2024 7:36 AM EDT [facility] BUN/Creatinine Ratio 10 10/19/2024 7:36 AM EDT [facility] Sodium, Plasma 139 136 - 145 mmol/L 10/19/2024 7:36 AM EDT [facility] Potassium, Plasma 3.5(L) 3.6 - 4.9 mmol/L 10/19/2024 7:36 AM EDT [facility] Chloride, Plasma 105 97 - 107 mmol/L 10/19/2024 7:36 AM EDT [facility] CO2, Plasma 24 22 - 29 mmol/L 10/19/2024 7:36 AM EDT [facility] Anion Gap 10 6 - 16 mmol/L 10/19/2024 7:36 AM EDT [facility] Total Calcium, Plasma 8.3(L) 8.9 - 10.2 mg/dL 10/19/2024 7:36 AM EDT [facility] eGFRcr 121.7 mL/min/1.7 3m*2 10/19/2024 7:36 AM EDT [facility] Comment:Reported eGFRcr in m L/min/1.73m2 is based the CKD-EPI 2020 equation that does not use a race coefficient. Blood Venous blood specimen / Unknown Venipuncture / Unknown 10/19/2024 7:03 AM EDT 10/19/2024 7:06 AM EDT us Hilton Montelongo MD LAB BLOOD ORDERABLES Final Re sult Performing Organization Address City/[facility]/ZIP Co de Phone Number [facility] [address] [place] [address] * Phosphorus, Plasma (10/18/2024 10:56 PM EDT) Phosphorus, Plasma 3.3 2.5 - 4.5 mg/dL 10/18/2024 11:57 PM EDT [facility] Blood Venous blood specimen / Unknown Venipuncture / Unknown 10/18/2024 10:56 PM EDT 10/18/2024 11:07 PM EDT us Hilton Montelongo MD LAB BLOOD ORDERABLES Final Re sult Performing Organization Address [facility] Co [place] [address] * (ABNORMAL) Magnesium (10/18/2024 10:56 PM EDT) Magnesium, Plasma 3.1(H) 1.9 - 2.4 mg/dL 10/18/2024 11:57 PM EDT [facility] Blood Venous blood specimen / Unknown Venipuncture / Unknown 10/18/2024 10:56 PM EDT 10/18/2024 11:07 PM EDT us Hilton Montelongo MD LAB BLOOD ORDERABLES Final Re sult Performing Organization Address [facility] Co de Phone Number [facility] [address] [place] [address] * (ABNORMAL) Basic metabolic panel (10/18/2024 10:56 PM EDT) Glucose, Plasma 104(H) 74 - 99 mg/dL 10/18/2024 11:57 PM EDT [facility] BUN, Plasma 7 7 - 21 mg/dL 10/18/2024 11:57 PM EDT [facility] Creatinine, Plasma 0.63 0.60 - 1.10 mg/dL 10/18/2024 11:57 PM EDT [facility] BUN/Creatinine Ratio 11 10/18/2024 11:57 PM EDT [facility] Sodium, Plasma 136 136 - 145 mmol/L 10/18/2024 11:57 PM EDT [facility] Potassium, Plasma 3.5(L) 3.6 - 4.9 mmol/L 10/18/2024 11:57 PM EDT [facility] Chloride, Plasma 100 97 - 107 mmol/L 10/18/2024 11:57 PM EDT [facility] CO2, Plasma 26 22 - 29 mmol/L 10/18/2024 11:57 PM EDT [facility] Anion Gap 10 6 - 16 mmol/L 10/18/2024 11:57 PM EDT [facility] Total Calcium, Plasma 7.8(L) 8.9 - 10.2 mg/dL 10/18/2024 11:57 PM EDT [facility] eGFRcr 120.3 mL/min/1.7 3m*2 10/18/2024 11:57 PM EDT [facility] Comment:Reported eGFRcr in m L/min/1.73m2 is based the CKD-EPI 2020 equation that does not use a race coefficient. Blood Venous blood specimen / Unknown Venipuncture / Unknown 10/18/2024 10:56 PM EDT 10/18/2024 11:07 PM EDT us Hilton Montelongo MD LAB BLOOD ORDERABLES Final Re sult [facility] [address] [place] [address] * (ABNORMAL) Aldosterone (10/18/2024 10:56 PM EDT) Aldosterone 115.0(H) 4.0 - 31.0 ng/dL 10/21/2024 8:21 AM EDT [facility] Blood Venous blood specimen / Unknown Venipuncture / Unknown 10/18/2024 10:56 PM EDT 10/18/2024 11:29 PM EDT Santos Herrmann MD LAB BLOOD ORDERABLES Final Resu lt Performing Organization Address [facility]/ZIP Co de Phone Number [facility] [address] [place] [address] * (ABNORMAL) Phosphorus, Plasma (10/18/2024 6:30 PM EDT) Phosphorus, Plasma 1.8(L) 2.5 - 4.5 mg/dL 10/18/2024 7:14 PM EDT [facility] Blood Venous blood specimen / Unknown Venipuncture / Unknown 10/18/2024 6:30 PM EDT 10/18/2024 6:42 PM EDT us Hilton Mnotelongo MD LAB BLOOD ORDERABLES Final Re sult Performing Organization Address [facility]/ZIP Co [place] [address] * (ABNORMAL) Magnesium (10/18/2024 6:30 PM EDT) Magnesium, Plasma 2.5(H) 1.9 - 2.4 mg/dL 10/18/2024 7:14 PM EDT [facility] Blood Venous blood specimen / Unknown Venipuncture / Unknown 10/18/2024 6:30 PM EDT 10/18/2024 6:42 PM EDT us Hilton Montelongo MD LAB BLOOD ORDERABLES Final Re sult Performing Organization Address [facility] Co [place] [address] * (ABNORMAL) Basic metabolic panel (10/18/2024 6:30 PM EDT) Glucose, Plasma 100(H) 74 - 99 mg/dL 10/18/2024 7:14 PM EDT [facility] BUN, Plasma 7 7 - 21 mg/dL 10/18/2024 7:14 PM EDT [facility] Creatinine, Plasma 0.65 0.60 - 1.10 mg/dL 10/18/2024 7:14 PM EDT [facility] BUN/Creatinine Ratio 11 10/18/2024 7:14 PM EDT [facility] Sodium, Plasma 137 136 - 145 mmol/L 10/18/2024 7:14 PM EDT [facility] Potassium, Plasma 3.9 3.6 - 4.9 mmol/L 10/18/2024 7:14 PM EDT [facility] Chloride, Plasma 102 97 - 107 mmol/L 10/18/2024 7:14 PM EDT [facility] CO2, Plasma 25 22 - 29 mmol/L 10/18/2024 7:14 PM EDT [facility] Anion Gap 10 6 - 16 mmol/L 10/18/2024 7:14 PM EDT [facility] Total Calcium, Plasma 8.1(L) 8.9 - 10.2 mg/dL 10/18/2024 7:14 PM EDT [facility] eGFRcr 119.4 mL/min/1.7 3m*2 10/18/2024 7:14 PM EDT [facility] Comment:Reported eGFRcr in m L/min/1.73m2 is based the CKD-EPI 2020 equation that does not use a race coefficient. Blood Venous blood specimen / Unknown Venipuncture / Unknown 10/18/2024 6:30 PM EDT 10/18/2024 6:42 PM EDT us Hilton Montelongo MD LAB BLOOD ORDERABLES Final Re sult [facility] [address] [place] [address] * Group B Streptococcus by PCR (10/18/2024 1:47 PM EDT) Group B Streptococcus PCR Result Not Detected Not Detected 10/20/2024 7:26 AM EDT [facility] Swab Rectovaginal / Unknown Non-blood Collection / Unknown 10/18/2024 1:47 PM EDT 10/18/2024 1:59 PM EDT Narrative [facility] - 10/20/2024 7:26 AM EDT [...] OR DERABLES Final Result Performing Organization Address [facility]/ZIP Co [place] [address] * (ABNORMAL) Phosphorus, Plasma (10/18/2024 1:47 PM EDT) Phosphorus, Plasma 1.5(L) 2.5 - 4.5 mg/dL 10/18/2024 3:05 PM EDT [facility] Blood Venous blood specimen / Unknown Venipuncture / Unknown 10/18/2024 1:47 PM EDT 10/18/2024 2:26 PM EDT Hilton Montelongo MD LAB BLOOD ORDERABLES Final Re sult Performing Organization Address City/[facility]/ZIP Co [place] [address] * (ABNORMAL) Magnesium (10/18/2024 1:47 PM EDT) Magnesium, Plasma 1.7(L) 1.9 - 2.4 mg/dL 10/18/2024 3:05 PM EDT [facility] Blood Venous blood specimen / Unknown Venipuncture / Unknown 10/18/2024 1:47 PM EDT 10/18/2024 2:26 PM EDT Hilton Montelongo MD LAB BLOOD ORDERABLES Final Re sult [facility] [address] [place] [address] * (ABNORMAL) Basic metabolic panel (10/18/2024 1:47 PM EDT) Glucose, Plasma 119(H) 74 - 99 mg/dL 10/18/2024 3:05 PM EDT [facility] BUN, Plasma 8 7 - 21 mg/dL 10/18/2024 3:05 PM EDT [facility] Creatinine, Plasma 0.64 0.60 - 1.10 mg/dL 10/18/2024 3:05 PM EDT [facility] BUN/Creatinine Ratio 13 10/18/2024 3:05 PM EDT [facility] Sodium, Plasma 132(L) 136 - 145 mmol/L 10/18/2024 3:05 PM EDT [facility] Potassium, Plasma 3.9 3.6 - 4.9 mmol/L 10/18/2024 3:05 PM EDT [facility] Chloride, Plasma 98 97 - 107 mmol/L 10/18/2024 3:05 PM EDT [facility] CO2, Plasma 23 22 - 29 mmol/L 10/18/2024 3:05 PM EDT [facility] Anion Gap 11 6 - 16 mmol/L 10/18/2024 3:05 PM EDT [facility] Total Calcium, Plasma 8.0(L) 8.9 - 10.2 mg/dL 10/18/2024 3:05 PM EDT [facility] eGFRcr 119.8 mL/min/1.7 3m*2 10/18/2024 3:05 PM EDT [facility] Comment:Reported eGFRcr in m L/min/1.73m2 is based the CKD-EPI 2020 equation that does not use a race coefficient. Blood Venous blood specimen / Unknown Venipuncture / Unknown 10/18/2024 1:47 PM EDT 10/18/2024 2:26 PM EDT us Hilton Montelongo MD LAB BLOOD ORDERABLES Final Re sult Performing Organization Address City/[facility]/ZIP Co de Phone Number [facility] [address] [place] [address] * (ABNORMAL) Phosphorus, Plasma (10/18/2024 1:46 PM EDT) Phosphorus, Plasma 1.5(L) 2.5 - 4.5 mg/dL 10/18/2024 3:05 PM EDT [facility] Blood Venous blood specimen / Unknown Venipuncture / Unknown 10/18/2024 1:46 PM EDT 10/18/2024 2:26 PM EDT us Hilton Montelongo MD LAB BLOOD ORDERABLES Final Re sult Performing Organization Address [facility]/ZIP Co de Phone Number [facility] [address] [place] [address] * (ABNORMAL) Magnesium (10/18/2024 1:46 PM EDT) Magnesium, Plasma 1.7(L) 1.9 - 2.4 mg/dL 10/18/2024 3:05 PM EDT [facility] Blood Venous blood specimen / Unknown Venipuncture / Unknown 10/18/2024 1:46 PM EDT 10/18/2024 2:26 PM EDT us Hilton Montelongo MD LAB BLOOD ORDERABLES Final Re sult Performing Organization Address [facility] Co de Phone Number [facility] [address] [place] [address] * (ABNORMAL) Basic metabolic panel (10/18/2024 1:46 PM EDT) Glucose, Plasma 121(H) 74 - 99 mg/dL 10/18/2024 3:05 PM EDT [facility] BUN, Plasma 8 7 - 21 mg/dL 10/18/2024 3:05 PM EDT [facility] Creatinine, Plasma 0.65 0.60 - 1.10 mg/dL 10/18/2024 3:05 PM EDT [facility] BUN/Creatinine Ratio 12 10/18/2024 3:05 PM EDT [facility] Sodium, Plasma 134(L) 136 - 145 mmol/L 10/18/2024 3:05 PM EDT [facility] Potassium, Plasma 4.0 3.6 - 4.9 mmol/L 10/18/2024 3:05 PM EDT [facility] Chloride, Plasma 100 97 - 107 mmol/L 10/18/2024 3:05 PM EDT [facility] CO2, Plasma 23 22 - 29 mmol/L 10/18/2024 3:05 PM EDT [facility] Anion Gap 11 6 - 16 mmol/L 10/18/2024 3:05 PM EDT [facility] Total Calcium, Plasma 8.0(L) 8.9 - 10.2 mg/dL 10/18/2024 3:05 PM EDT [facility] eGFRcr 119.4 mL/min/1.7 3m*2 10/18/2024 3:05 PM EDT [facility] Comment:Reported eGFRcr in m L/min/1.73m2 is based the CKD-EPI 2020 equation that does not use a race coefficient. Blood Venous blood specimen / Unknown Venipuncture / Unknown 10/18/2024 1:46 PM EDT 10/18/2024 2:26 PM EDT us Hilton Montelongo MD LAB BLOOD ORDERABLES Final Re sult [facility] [address] [place] [address] * ECHO, ADULT TRANSTHORACIC COMPLETE (10/18/2024 11:40 AM EDT) BSA 1.71 m2 [facility] Height 162.6 [facility] Weight 65.8 [facility] LVIDd 34 mm [facility] LVIDs 25 mm [facility] IVSd 8 mm [facility] LVPWd 5 mm [facility] LV MASS(C)D 54 g [facility] CV ECHO LV MASS INDEX 31 g/m2 [...] Root Diam 31 mm [facility] PA UT(ACCEL) 28.2 mmHg [facility] LVLs ap2 6.7 [...] is no recent study available for direct cwaz-hs-olas comparison. Patient is 33 wks 5 days [...] is no recent study available for direct rnyj-kw-[id number] comparison. us Hilton Montelongo MD CV ECHO PROCEDURES Final Resu lt * POCT glucose meter (10/18/2024 9:42 AM EDT) Pathologist [facility] POCT Glucose 78 74 - 99 mg/dL 10/18/2024 9:52 AM EDT [facility] Comment:Accuracy of a glucos e result [...] Comment 10/18/2024 9:52 AM EDT [facility] Surgical Specialist ID Tex Harman 025 9:52 AM EDT [facility] Device ID [id number] 10/18/2024 9:52 AM EDT [facility] Specimen Type POC Capillary 10/18/2024 9:52 AM EDT [facility] Blood Capillary blood specimen / Unknown 10/18/2024 9:42 AM EDT 10/18/2024 9:52 AM EDT Result Jaden Montelongo MD LAB POINT OF CARE TE ST DOCKED DEVICE UNSOLICITED RESULTS Final Result Performing Organization Address [facility] Co de Phone Number [facility] [address] [place] [address] * Light Green Top (10/18/2024 9:14 AM EDT) Extra Hold for add-ons 10/18/2024 12:01 PM EDT [facility] Comment:Auto resulted. Blood Venous blood specimen / Unknown 10/18/2024 9:14 AM EDT 10/18/2024 9:27 AM EDT Result Jaden Montelongo MD LAB BLOOD ORDERABLES Final Re sult [facility] [address] [place] [address] * Phosphorus, Plasma (10/18/2024 9:14 AM EDT) Phosphorus, Plasma 3.2 2.5 - 4.5 mg/dL 10/18/2024 10:29 AM EDT [facility] Blood Venous blood specimen / Unknown Venipuncture / Unknown 10/18/2024 9:14 AM EDT 10/18/2024 9:36 AM EDT us Hilton Montelongo MD LAB BLOOD ORDERABLES Final Re sult [facility] [address] [place] [address] * (ABNORMAL) Magnesium (10/18/2024 9:14 AM EDT) Magnesium, Plasma 1.8(L) 1.9 - 2.4 mg/dL 10/18/2024 10:29 AM EDT [facility] Blood Venous blood specimen / Unknown Venipuncture / Unknown 10/18/2024 9:14 AM EDT 10/18/2024 9:36 AM EDT Hilton Montelongo MD LAB BLOOD ORDERABLES Final Re sult Performing Organization Address [facility]/ZIP Co de Phone Number [facility] [address] [place] [address] * (ABNORMAL) Basic metabolic panel (10/18/2024 9:14 AM EDT) Glucose, Plasma 76 74 - 99 mg/dL 10/18/2024 10:29 AM EDT [facility] BUN, Plasma 9 7 - 21 mg/dL 10/18/2024 10:29 AM EDT [facility] Creatinine, Plasma 0.66 0.60 - 1.10 mg/dL 10/18/2024 10:29 AM EDT [facility] BUN/Creatinine Ratio 14 10/18/2024 10:29 AM EDT [facility] Sodium, Plasma 134(L) 136 - 145 mmol/L 10/18/2024 10:29 AM EDT [facility] Potassium, Plasma 3.2(L) 3.6 - 4.9 mmol/L 10/18/2024 10:29 AM EDT [facility] Chloride, Plasma 94(L) 97 - 107 mmol/L 10/18/2024 10:29 AM EDT [facility] CO2, Plasma 27 22 - 29 mmol/L 10/18/2024 10:29 AM EDT [facility] Anion Gap 13 6 - 16 mmol/L 10/18/2024 10:29 AM EDT [facility] Total Calcium, Plasma 8.2(L) 8.9 - 10.2 mg/dL 10/18/2024 10:29 AM EDT [facility] eGFRcr 119.0 mL/min/1.7 3m*2 10/18/2024 10:29 AM EDT [facility] Comment:Reported eGFRcr in m L/min/1.73m2 is based the CKD-EPI 2020 equation that does not use a race coefficient. Blood Venous blood specimen / Unknown Venipuncture / Unknown 10/18/2024 9:14 AM EDT 10/18/2024 9:36 AM EDT us Hilton Montelongo MD LAB BLOOD ORDERABLES Final Re sult Performing Organization Address City/[facility]/ZIP Co de Phone Number [facility] [address] [place] [address] * ECG Adult (10/18/2024 8:54 AM EDT) EKG DIAGNOSIS CLASS Abnormal MUSE ECG Ventricular Rate 95 BPM MUSE ECG Atrial Rate 95 BPM MUSE ECG UT Interval 146 ms MUSE ECG QRSD Interval 80 ms MUSE ECG QT Interval 346 ms MUSE ECG QTC Interval 434 ms MUSE ECG P Radisson 53 degrees MUSE ECG R Radisson 46 degrees MUSE ECG T Wave Radisson 42 degrees MUSE ECG Diagnosis Sinus rhythm with frequent premature ventricular complexes and premature atrial complexes MUSE ECG Diagnosis Nonspecific ST abnormality MUSE ECG Diagnosis Abnormal ECG MUSE ECG Diagnosis MUSE ECG Diagnosis Confirmed by Amish Paz ([id number]) on 10/18/2024 1:47:52 PM MUSE ECG 10/18/2024 8:54 AM EDT 10/18/2024 1:47 PM EDT us Hilton Montelongo MD ECG ORDERABLES Final Result Performing Organization Address City/[facility]/ZIP Co de Phone Number MUSE ECG * OB US Biophysical Profile wo Non Stress Testing (10/18/2024 8:50 AM EDT) Anatomical Region Laterality Modality Body Ultrasound 10/18/2024 8:28 AM EDT Impressions 10/18/2024 9:40 AM EDT The OB Ultrasound you requested has been resulted. Please navigate to the Imaging tab in [email or web address] for review. This message has been generated by the interface. Narrative Procedure Note Nneka Gipson MD - 10/18/2024 IMPRESSION: The OB Ultrasound you requested has been resulted. Please navigate to theImaging tab in [email or web address] for review. This message has been generated by theinterface. Hilton Montelongo MD IMG OB US PROCEDURES Final Re sult * Protein, Random, Urine with Creatinine (10/18/2024 4:03 AM EDT) Protein, Urine 10 mg/dL 10/18/2024 4:44 AM EDT [facility] Creatinine, Urine 62 mg/dL 10/18/2024 4:44 AM EDT [facility] Protein/Creatin ine Ratio 0.2 mg/mg Creat 10/18/2024 4:44 AM EDT [facility] Urine Urine specimen obtained by clean catch procedure / Unknown Non-blood Collection / Unknown 10/18/2024 4:03 AM EDT 10/18/2024 4:11 AM EDT Result [facility] Hilton Montelongo MD LAB URINE ORDERABLES Final Re sult [facility] [address] [place] [address] * (ABNORMAL) Ionized calcium, whole blood (10/18/2024 3:38 AM EDT) Ionized Calcium, Whole Blood 4.3(L) 4.6 - 5.1 mg/dL LAB HEMATOLOGY METHOD 10/18/2024 5:42 AM EDT [facility] Blood Venous blood specimen / Unknown Venipuncture / Unknown 10/18/2024 3:38 AM EDT 10/18/2024 3:48 AM EDT Result [facility] Hilton Montelongo MD LAB BLOOD ORDERABLES Final Re sult [facility] [address] [place] [address] * (ABNORMAL) Blood gas panel, venous (10/18/2024 3:38 AM EDT) pH, Venous 7.47(H) 7.32 - 7.43 LAB HEMATOLOGY METHOD 10/18/2024 3:50 AM EDT [facility] pCO2, Venous 44 37 - 52 mmHg LAB HEMATOLOGY METHOD 10/18/2024 3:50 AM EDT [facility] pO2, Venous 115(H) 25 - 40 mmHg LAB HEMATOLOGY METHOD 10/18/2024 3:50 AM EDT [facility] SO2, Measured, Venous 100(H) 65 - 80 % LAB HEMATOLOGY METHOD 10/18/2024 3:50 AM EDT [facility] Base Excess, Venous 7.1(H) -2.0 - 3.0 mmol/L LAB HEMATOLOGY METHOD 10/18/2024 3:50 AM EDT [facility] Bicarbonate, Calculated, Venous 32(H) 22 - 26 mmol/L LAB HEMATOLOGY METHOD 10/18/2024 3:50 AM EDT [facility] Hematocrit, Whole Blood 27.5(L) 34.0 - 45.0 % LAB HEMATOLOGY METHOD 10/18/2024 3:50 AM EDT [facility] Sodium, Whole Blood 133(L) 136 - 145 mmol/L LAB HEMATOLOGY METHOD 10/18/2024 3:50 AM EDT [facility] Potassium, Whole Blood 2.8(L) 3.6 - 4.9 mmol/L LAB HEMATOLOGY METHOD 10/18/2024 3:50 AM EDT [facility] Chloride, Whole Blood 91(L) 97 - 107 mmol/L LAB HEMATOLOGY METHOD 10/18/2024 3:50 AM EDT [facility] Glucose, Whole Blood 72(L) 74 - 99 mg/dL LAB HEMATOLOGY METHOD 10/18/2024 3:50 AM EDT [facility] Lactate, Venous, Whole Blood 0.7 0.5 - 2.2 mmol/L LAB HEMATOLOGY METHOD 10/18/2024 3:50 AM EDT [facility] Ionized Calcium, Whole Blood 4.3(L) 4.6 - 5.1 mg/dL LAB HEMATOLOGY METHOD 10/18/2024 3:50 AM EDT [facility] Blood Venous blood specimen / Unknown Venipuncture / Unknown 10/18/2024 3:38 AM EDT 10/18/2024 3:48 AM EDT us Hilton Montelongo MD LAB BLOOD ORDERABLES Final Re sult Performing Organization Address City/[facility]/ZIP Co de Phone Number [facility] [address] [place] [address] * Phosphorus, Plasma (10/18/2024 3:38 AM EDT) Phosphorus, Plasma 3.4 2.5 - 4.5 mg/dL 10/18/2024 4:17 AM EDT [facility] Blood Venous blood specimen / Unknown Venipuncture / Unknown 10/18/2024 3:38 AM EDT 10/18/2024 3:49 AM EDT us Hilton Montelongo MD LAB BLOOD ORDERABLES Final Re sult Performing Organization Address [facility] [place] [address] * Magnesium (10/18/2024 3:38 AM EDT) Magnesium, Plasma 2.1 1.9 - 2.4 mg/dL 10/18/2024 4:17 AM EDT [facility] Blood Venous blood specimen / Unknown Venipuncture / Unknown 10/18/2024 3:38 AM EDT 10/18/2024 3:49 AM EDT us Hilton Montelongo MD LAB BLOOD ORDERABLES Final Re sult Performing Organization Address [facility] Co [place] [address] * (ABNORMAL) Basic metabolic panel (10/18/2024 3:38 AM EDT) Glucose, Plasma 73(L) 74 - 99 mg/dL 10/18/2024 4:17 AM EDT [facility] BUN, Plasma 8 7 - 21 mg/dL 10/18/2024 4:17 AM EDT [facility] Creatinine, Plasma 0.66 0.60 - 1.10 mg/dL 10/18/2024 4:17 AM EDT [facility] BUN/Creatinine Ratio 12 10/18/2024 4:17 AM EDT [facility] Sodium, Plasma 133(L) 136 - 145 mmol/L 10/18/2024 4:17 AM EDT [facility] Potassium, Plasma 3.1(L) 3.6 - 4.9 mmol/L 10/18/2024 4:17 AM EDT [facility] Chloride, Plasma 92(L) 97 - 107 mmol/L 10/18/2024 4:17 AM EDT [facility] CO2, Plasma 27 22 - 29 mmol/L 10/18/2024 4:17 AM EDT [facility] Anion Gap 14 6 - 16 mmol/L 10/18/2024 4:17 AM EDT [facility] Total Calcium, Plasma 8.0(L) 8.9 - 10.2 mg/dL 10/18/2024 4:17 AM EDT [facility] eGFRcr 119.0 mL/min/1.7 3m*2 10/18/2024 4:17 AM EDT [facility] Comment:Reported eGFRcr in m L/min/1.73m2 is based the CKD-EPI 2020 equation that does not use a race coefficient. Blood Venous blood specimen / Unknown Venipuncture / Unknown 10/18/2024 3:38 AM EDT 10/18/2024 3:49 AM EDT us Hilton Montelongo MD LAB BLOOD ORDERABLES Final Re sult [facility] [address] [place] [address] * Bile acids, total (10/18/2024 1:12 AM EDT) BILE ACIDS, TOTAL 5 0 - 10 umol/L 10/20/2024 12:29 AM EDT [facility] Blood Venous blood specimen / Unknown Venipuncture / Unknown 10/18/2024 1:12 AM EDT 10/18/2024 1:18 AM EDT Narrative [facility] - 10/20/2024 12:29 AM EDT INTERPRETIVE INFORMATION: Bile Acids, Total Reference Interval applies to fasting specimens. Performed By: [email or web address] [address] [place] [address] Box Fabricator: Brandon Bell MD, PhD CLIA Number: [id number] us Hilton Montelongo MD LAB BLOOD ORDERABLES Final Re sult Performing Organization Address City/[facility]/ZIP Co de Phone Number [facility] [address] [place] [address] * Troponin T, High Sensitivity, 2 Hour, Plasma (10/18/2024 1:12 AM EDT) Troponin T, High Sensitivity, 2 Hour <6 <14 ng/L 10/18/2024 1:46 AM EDT [facility] Blood Venous blood specimen / Unknown Venipuncture / Unknown 10/18/2024 1:12 AM EDT 10/18/2024 1:18 AM EDT us Hilton Montelongo MD LAB BLOOD ORDERABLES Final Re sult [facility] [address] [place] [address] * Group A Streptococcus by PCR (10/17/2024 11:25 PM EDT) Group A Streptococcus PCR Result Not Detected Not Detected 10/18/2024 12:38 AM EDT [facility] Swab Structure of peritonsillar tissue / Unknown Non-blood Collection / Unknown 10/17/2024 11:25 PM EDT 10/17/2024 11:49 PM EDT us Hilton Montelongo MD LAB MICROBIOLOGY - GENERAL OR DERABLES Final Result Performing Organization Address City/[facility]/ZIP Co de Phone Number [facility] [address] [place] [address] * ECG Adult (10/17/2024 10:50 PM EDT) EKG DIAGNOSIS CLASS Borderline Normal MUSE ECG Ventricular Rate 92 BPM MUSE ECG Atrial Rate 92 BPM MUSE ECG UT Interval 142 ms MUSE ECG QRSD Interval 78 ms MUSE ECG QT Interval 366 ms MUSE ECG QTC Interval 452 ms MUSE ECG P Radisson 62 degrees MUSE ECG R Radisson 45 degrees MUSE ECG T Wave Radisson 61 degrees MUSE ECG Diagnosis Sinus rhythm with premature atrial complexes with aberrant conduction MUSE ECG Diagnosis Otherwise normal ECG MUSE ECG Diagnosis MUSE ECG Diagnosis Confirmed by Amish Paz ([id number]) on 10/18/2024 8:04:52 PM MUSE ECG 10/17/2024 10:5 0 PM EDT 10/18/2024 8:04 PM EDT Hilton Montelongo MD ECG ORDERABLES Final Result Performing Organization Address [facility] Co de Phone Number MUSE ECG * Magnesium (10/17/2024 10:41 PM EDT) [facility] Magnesium, Plasma 2.2 1.9 - 2.4 mg/dL 10/17/2024 11:16 PM EDT [facility] Blood Venous blood specimen / Unknown Venipuncture / Unknown 10/17/2024 10:41 PM EDT 10/17/2024 10:45 PM EDT Hilton Montelongo MD LAB BLOOD ORDERABLES Final Re sult [facility] [address] [place] [address] * Troponin T, High Sensitivity, 0 Hour Plasma, Reflex to 2 Hour (10/17/2024 10:41 PM EDT) [facility] Troponin T, High Sensitivity, 0 Hour <6 <14 ng/L 10/17/2024 11:16 PM EDT [facility] Blood Venous blood specimen / Unknown Venipuncture / Unknown 10/17/2024 10:41 PM EDT 10/17/2024 10:45 PM EDT us Hilton Montelongo MD LAB BLOOD ORDERABLES Final Re sult [facility] [address] [place] [address] * (ABNORMAL) Blood gas panel, venous (10/17/2024 10:41 PM EDT) pH, Venous 7.62(HH) 7.32 - 7.43 LAB HEMATOLOGY METHOD 10/17/2024 10:47 PM EDT [facility] pCO2, Venous 31(L) 37 - 52 mmHg LAB HEMATOLOGY METHOD 10/17/2024 10:47 PM EDT [facility] pO2, Venous 185(H) 25 - 40 mmHg LAB HEMATOLOGY METHOD 10/17/2024 10:47 PM EDT [facility] SO2, Measured, Venous 100(H) 65 - 80 % LAB HEMATOLOGY METHOD 10/17/2024 10:47 PM EDT [facility] Base Excess, Venous 10.6(H) -2.0 - 3.0 mmol/L LAB HEMATOLOGY METHOD 10/17/2024 10:47 PM EDT [facility] Bicarbonate, Calculated, Venous 32(H) 22 - 26 mmol/L LAB HEMATOLOGY METHOD 10/17/2024 10:47 PM EDT [facility] Hematocrit, Whole Blood 29.4(L) 34.0 - 45.0 % LAB HEMATOLOGY METHOD 10/17/2024 10:47 PM EDT [facility] Sodium, Whole Blood 132(L) 136 - 145 mmol/L LAB HEMATOLOGY METHOD 10/17/2024 10:47 PM EDT [facility] Potassium, Whole Blood 2.3(LL) 3.6 - 4.9 mmol/L LAB HEMATOLOGY METHOD 10/17/2024 10:47 PM EDT [facility] Chloride, Whole Blood 87(L) 97 - 107 mmol/L LAB HEMATOLOGY METHOD 10/17/2024 10:47 PM EDT [facility] Glucose, Whole Blood 76 74 - 99 mg/dL LAB HEMATOLOGY METHOD 10/17/2024 10:47 PM EDT [facility] Lactate, Venous, Whole Blood 1.1 0.5 - 2.2 mmol/L LAB HEMATOLOGY METHOD 10/17/2024 10:47 PM EDT [facility] Ionized Calcium, Whole Blood 4.2(L) 4.6 - 5.1 mg/dL LAB HEMATOLOGY METHOD 10/17/2024 10:47 PM EDT [facility] Blood Venous blood specimen / Unknown Venipuncture / Unknown 10/17/2024 10:41 PM EDT 10/17/2024 10:45 PM EDT us Hilton Montelongo MD LAB BLOOD ORDERABLES Final Re sult [facility] [address] [place] [address] * (ABNORMAL) Comprehensive metabolic panel (10/17/2024 10:41 PM EDT) Glucose, Plasma 77 74 - 99 mg/dL 10/17/2024 11:16 PM EDT [facility] BUN, Plasma 9 7 - 21 mg/dL 10/17/2024 11:16 PM EDT [facility] Creatinine, Plasma 0.70 0.60 - 1.10 mg/dL 10/17/2024 11:16 PM EDT [facility] BUN/Creatinine Ratio 13 10/17/2024 11:16 PM EDT [facility] Sodium, Plasma 132(L) 136 - 145 mmol/L 10/17/2024 11:16 PM EDT [facility] Potassium, Plasma 2.5(LL) 3.6 - 4.9 mmol/L 10/17/2024 11:16 PM EDT [facility] Chloride, Plasma 88(L) 97 - 107 mmol/L 10/17/2024 11:16 PM EDT [facility] CO2, Plasma 27 22 - 29 mmol/L 10/17/2024 11:16 PM EDT [facility] Anion Gap 17(H) 6 - 16 mmol/L 10/17/2024 11:16 PM EDT [facility] Total Calcium, Plasma 8.4(L) 8.9 - 10.2 mg/dL 10/17/2024 11:16 PM EDT [facility] Total Protein 5.8(L) 6.3 - 7.9 g/dL 10/17/2024 11:16 PM EDT [facility] Albumin, Plasma 3.0(L) 3.5 - 5.2 g/dL 10/17/2024 11:16 PM EDT [facility] AST, Plasma 69(H) 10 - 35 U/L 10/17/2024 11:16 PM EDT [facility] ALT, Plasma 76(H) 10 - 35 U/L 10/17/2024 11:16 PM EDT [facility] Alkaline Phosphatase, Plasma 76 35 - 104 U/L 10/17/2024 11:16 PM EDT [facility] Total Bilirubin, Plasma 0.7 0.2 - 1.1 mg/dL 10/17/2024 11:16 PM EDT [facility] eGFRcr 117.3 mL/min/1.7 3m*2 10/17/2024 11:16 PM EDT [facility] Comment:Reported eGFRcr in m L/min/1.73m2 is based the CKD-EPI 2020 equation that does not use a race coefficient. Blood Venous blood specimen / Unknown Venipuncture / Unknown 10/17/2024 10:41 PM EDT 10/17/2024 10:45 PM EDT us Hilton Montelongo MD LAB BLOOD ORDERABLES Final Re sult [facility] [address] [place] [address] * (ABNORMAL) CBC (10/17/2024 10:41 PM EDT) WBC Count 10.63(H) 3.70 - 10.30 10*3/uL LAB HEMATOLOGY METHOD 10/17/2024 10:53 PM EDT [facility] RBC Count 3.27(L) 3.90 - 5.20 10*6/uL LAB HEMATOLOGY METHOD 10/17/2024 10:53 PM EDT [facility] HGB 9.7(L) 11.2 - 15.7 g/dL LAB HEMATOLOGY METHOD 10/17/2024 10:53 PM EDT [facility] HCT 28.7(L) 34.0 - 45.0 % LAB HEMATOLOGY METHOD 10/17/2024 10:53 PM EDT [facility] Platelet Count 185 155 - 369 10*3/uL LAB HEMATOLOGY METHOD 10/17/2024 10:53 PM EDT [facility] MCV 88 79 - 98 fL LAB HEMATOLOGY METHOD 10/17/2024 10:53 PM EDT [facility] MCH 29.7 26.0 - 32.0 pg LAB HEMATOLOGY METHOD 10/17/2024 10:53 PM EDT [facility] MCHC 33.8 30.7 - 35.5 g/dL LAB HEMATOLOGY METHOD 10/17/2024 10:53 PM EDT [facility] RDW 15.8(H) 11.5 - 14.5 % LAB HEMATOLOGY METHOD 10/17/2024 10:53 PM EDT [facility] MPV 12.3 8.8 - 12.5 fL LAB HEMATOLOGY METHOD 10/17/2024 10:53 PM EDT [facility] nRBC 0.0 <=0.0 per 100 WBCs LAB HEMATOLOGY METHOD 10/17/2024 10:53 PM EDT [facility] Blood Venous blood specimen / Unknown Venipuncture / Unknown 10/17/2024 10:41 PM EDT 10/17/2024 10:45 PM EDT Hilton Montelongo MD LAB BLOOD ORDERABLES Final Re sult [facility] [address] [place] [address] * SARS CoV-2/COVID-19 by PCR (10/17/2024 8:50 PM EDT) SARS CoV-2/COVID-1 9 RNA PCR Result Not Detected Not Detected 10/19/2024 1:56 AM EDT [facility] Swab Nasopharyngeal structure / Unknown Non-blood Collection / Unknown 10/17/2024 8:50 PM EDT 10/17/2024 9:28 PM EDT Narrative [facility] - 10/19/2024 1:56 AM EDT [...] clinical signs and symptoms consistent with COVID-19. Hilton Montelongo MD LAB MICROBIOLOGY - GENERAL OR DERABLES Final Result [facility] [address] [place] [address] * Nasopharyngeal Respiratory Panel (10/17/2024 8:50 PM EDT) Nasopharyngeal Respiratory PCR Interpretation Not Detected for all analytes Not Detected for all analytes 10/17/2024 11:23 PM EDT [facility] Swab Nasopharyngeal structure / Unknown Non-blood Collection / Unknown 10/17/2024 8:50 PM EDT 10/17/2024 9:28 PM EDT Narrative [facility] - 10/17/2024 11:23 PM EDT [...] Respiratory PCR Panel is performed using the [employer] ePlex instrument. This test is FDA approved for use with Nasopharyngeal swabs only. This test is used for clinical purposes. It should not be regarded as investigational or for research. [facility] Clinical Microbiology [facility] is certified under the Clinical Laboratory Improvement Amendments of 1988 (CLIA-88) as qualified to perform high complexity clinical laboratory testing. us Hilton Montelongo MD LAB MICROBIOLOGY - GENERAL OR DERABLES Final Result Performing Organization Address [facility] Co [place] [address] * Treponema Pallidum (Syphilis) Antibodies with Reflex to RPR and RPR Titer (Those with NO known Syphilis) (10/17/2024 7:31 PM EDT) Pathologist [facility] Syphilis Antibody (IgG+IgM) Nonreactive Nonreactive 10/17/2024 10:00 PM EDT [facility] Comment:Nonreactive. No sero logic evidence of syphilis. No follow-up necessary unless clinically indicated (e.g., early syphilis). Blood Venous blood specimen / Unknown Venipuncture / Unknown 10/17/2024 7:31 PM EDT 10/17/2024 7:44 PM EDT Hilton Montelongo MD LAB BLOOD ORDERABLES Final Re sult Performing Organization Address [facility] Co [place] [address] * Type and Screen (10/17/2024 7:31 PM EDT) ABO/Rh O Positive 10/17/2024 7:10 PM EDT [facility] Antibody Screen Negative 10/17/2024 7:10 PM EDT [facility] Specimen Expiration 10/20/2024 23:59 10/17/2024 7:10 PM EDT [facility] Blood Venous blood specimen / Unknown Venipuncture / Unknown 10/17/2024 7:31 PM EDT 10/17/2024 7:44 PM EDT us Hilton Montelongo MD LAB BLOOD BANK TEST ORDERABLE S Final Result [facility] [address] [place] [address], [place] * Troponin T, High Sensitivity, 2 Hour, Plasma (10/17/2024 6:18 PM EDT) Troponin T, High Sensitivity, 2 Hour <6 <14 ng/L 10/17/2024 7:18 PM EDT [facility] Blood Venous blood specimen / Unknown Venipuncture / Unknown 10/17/2024 6:18 PM EDT 10/17/2024 6:46 PM EDT us Jbo N Devine [employer], CNM LAB BLOOD ORDERABLES Final Result Performing Organization Address City/[facility]/ZIP Co de Phone Number [facility] [address] [place] [address] * XR Chest 1 View (10/17/2024 4:38 [...] ECG Atrial Rate 116 BPM MUSE ECG UT Interval 140 ms MUSE ECG QRSD Interval 80 ms MUSE ECG QT Interval 324 ms MUSE ECG QTC Interval 450 ms MUSE ECG P Radisson 63 degrees MUSE ECG R Radisson 39 degrees MUSE ECG T Wave Radisson 50 degrees MUSE ECG Diagnosis Sinus tachycardia [...] - 7.1 mg/dL 10/17/2024 9:51 PM EDT [facility] Blood Venous blood specimen / Unknown Venipuncture / Unknown 10/17/2024 4:05 PM EDT 10/17/2024 4:20 PM EDT Hilton Montelongo MD LAB BLOOD ORDERABLES Final Re sult [facility] [address] [place] [address] * (ABNORMAL) Lactate dehydrogenase (10/17/2024 4:05 PM EDT) LDH, Plasma 267(H) 116 - 250 U/L 10/17/2024 9:51 PM EDT [facility] Comment:Hemolyzed, result ma y be falsely increased. Blood Venous blood specimen / Unknown Venipuncture / Unknown 10/17/2024 4:05 PM EDT 10/17/2024 4:20 PM EDT us Hilton Montelongo MD LAB BLOOD ORDERABLES Final Re sult [facility] [address] [place] [address] * Phosphorus (10/17/2024 4:05 PM EDT) Pathologist [facility] Phosphorus, Plasma 2.5 2.5 - 4.5 mg/dL 10/17/2024 5:07 PM EDT [facility] Blood Venous blood specimen / Unknown Venipuncture / Unknown 10/17/2024 4:05 PM EDT 10/17/2024 4:20 PM EDT us Hilton Montelongo MD LAB BLOOD ORDERABLES Final Re sult [facility] [address] [place] [address] * (ABNORMAL) Magnesium (10/17/2024 4:05 PM EDT) Pathologist [facility] Magnesium, Plasma 1.4(L) 1.9 - 2.4 mg/dL 10/17/2024 5:07 PM EDT [facility] Blood Venous blood specimen / Unknown Venipuncture / Unknown 10/17/2024 4:05 PM EDT 10/17/2024 4:20 PM EDT us Hilton Montelongo MD LAB BLOOD ORDERABLES Final Re sult [facility] [address] [place] [address] * N-Terminal Probnp (10/17/2024 4:05 PM EDT) N-Terminal, PROBNP, Plasma 125 0 - 449 pg/mL 10/17/2024 5:07 PM EDT [facility] Blood Venous blood specimen / Unknown Venipuncture / Unknown 10/17/2024 4:05 PM EDT 10/17/2024 4:20 PM EDT Jbo Devine HYDRO PLANT SITE MANAGER, CN LAB BLOOD ORDERABLES Final Result [facility] [address] [place] [address] * Troponin T, High Sensitivity, 0 Hour Plasma, Reflex to 2 Hour (10/17/2024 4:05 PM EDT) Pathologist [facility] Troponin T, High Sensitivity, 0 Hour <6 <14 ng/L 10/17/2024 5:07 PM EDT [facility] Blood Venous blood specimen / Unknown Venipuncture / Unknown 10/17/2024 4:05 PM EDT 10/17/2024 4:20 PM EDT Job Devine HYDRO PLANT SITE MANAGER, CN LAB BLOOD ORDERABLES Final Result [facility] [address] [place] [address] * (ABNORMAL) D DIMER, QUANTITATIVE (10/17/2024 4:05 PM EDT) Pathologist [facility] D Dimer, Quantitative 2.33(H) <0.50 ug/mL FEU LAB COAGULATION METHOD 10/17/2024 4:47 PM EDT [facility] Blood Venous blood specimen / Unknown Venipuncture / Unknown 10/17/2024 4:05 PM EDT 10/17/2024 4:19 PM EDT Narrative [facility] - 10/17/2024 4:47 PM EDT [...] considered in the clinical context. Job Devine HYDRO PLANT SITE MANAGER, CNM LAB BLOOD ORDERABLES Final Result [facility] [address] [place] [address] * (ABNORMAL) Comprehensive metabolic panel (10/17/2024 4:05 PM EDT) Glucose, Plasma 78 74 - 99 mg/dL 10/17/2024 5:07 PM EDT [facility] BUN, Plasma 9 7 - 21 mg/dL 10/17/2024 5:07 PM EDT [facility] Creatinine, Plasma 0.74 0.60 - 1.10 mg/dL 10/17/2024 5:07 PM EDT [facility] BUN/Creatinine Ratio 12 10/17/2024 5:07 PM EDT [facility] Sodium, Plasma 136 136 - 145 mmol/L 10/17/2024 5:07 PM EDT [facility] Potassium, Plasma 2.5(LL) 3.6 - 4.9 mmol/L 10/17/2024 5:07 PM EDT [facility] Chloride, Plasma 87(L) 97 - 107 mmol/L 10/17/2024 5:07 PM EDT [facility] CO2, Plasma 32(H) 22 - 29 mmol/L 10/17/2024 5:07 PM EDT [facility] Anion Gap 17(H) 6 - 16 mmol/L 10/17/2024 5:07 PM EDT [facility] Total Calcium, Plasma 9.0 8.9 - 10.2 mg/dL 10/17/2024 5:07 PM EDT [facility] Total Protein 6.5 6.3 - 7.9 g/dL 10/17/2024 5:07 PM EDT [facility] Albumin, Plasma 3.1(L) 3.5 - 5.2 g/dL 10/17/2024 5:07 PM EDT [facility] AST, Plasma 82(H) 10 - 35 U/L 10/17/2024 5:07 PM EDT [facility] ALT, Plasma 93(H) 10 - 35 U/L 10/17/2024 5:07 PM EDT [facility] Alkaline Phosphatase, Plasma 83 35 - 104 U/L 10/17/2024 5:07 PM EDT [facility] Total Bilirubin, Plasma 0.6 0.2 - 1.1 mg/dL 10/17/2024 5:07 PM EDT [facility] eGFRcr 109.7 mL/min/1.7 3m*2 10/17/2024 5:07 PM EDT [facility] Comment:Reported eGFRcr in m L/min/1.73m2 is based the CKD-EPI 2020 equation that does not use a race coefficient. Blood Venous blood specimen / Unknown Venipuncture / Unknown 10/17/2024 4:05 PM EDT 10/17/2024 4:20 PM EDT Job Devine HYDRO PLANT SITE MANAGER, CNM LAB BLOOD ORDERABLES Final Result [facility] [address] [place] [address] * (ABNORMAL) CBC and Differential (10/17/2024 4:05 PM EDT) WBC Count 9.54 3.70 - 10.30 10*3/uL LAB HEMATOLOGY METHOD 10/17/2024 4:41 PM EDT [facility] RBC Count 3.40(L) 3.90 - 5.20 10*6/uL LAB HEMATOLOGY METHOD 10/17/2024 4:41 PM EDT [facility] HGB 10.2(L) 11.2 - 15.7 g/dL LAB HEMATOLOGY METHOD 10/17/2024 4:41 PM EDT [facility] HCT 29.7(L) 34.0 - 45.0 % LAB HEMATOLOGY METHOD 10/17/2024 4:41 PM EDT [facility] Platelet Count 177 155 - 369 10*3/uL LAB HEMATOLOGY METHOD 10/17/2024 4:41 PM EDT [facility] MCV 87 79 - 98 fL LAB HEMATOLOGY METHOD 10/17/2024 4:41 PM EDT [facility] MCH 30.0 26.0 - 32.0 pg LAB HEMATOLOGY METHOD 10/17/2024 4:41 PM EDT [facility] MCHC 34.3 30.7 - 35.5 g/dL LAB HEMATOLOGY METHOD 10/17/2024 4:41 PM EDT [facility] RDW 15.9(H) 11.5 - 14.5 % LAB HEMATOLOGY METHOD 10/17/2024 4:41 PM EDT [facility] MPV 12.1 8.8 - 12.5 fL LAB HEMATOLOGY METHOD 10/17/2024 4:41 PM EDT [facility] nRBC 0.0 <=0.0 per 100 WBCs LAB HEMATOLOGY METHOD 10/17/2024 4:41 PM EDT [facility] Differential Type Automated LAB HEMATOLOGY METHOD 10/17/2024 4:41 PM EDT [facility] Neutrophils % 63 % LAB HEMATOLOGY METHOD 10/17/2024 4:41 PM EDT [facility] Lymphocytes % 24 % LAB HEMATOLOGY METHOD 10/17/2024 4:41 PM EDT [facility] Monocytes % 11 % LAB HEMATOLOGY METHOD 10/17/2024 4:41 PM EDT [facility] Eosinophils % 1 % LAB HEMATOLOGY METHOD 10/17/2024 4:41 PM EDT [facility] Basophils % 0 % LAB HEMATOLOGY METHOD 10/17/2024 4:41 PM EDT [facility] Immature Granulocytes % 1 % LAB HEMATOLOGY METHOD 10/17/2024 4:41 PM EDT [facility] Neutrophils Absolute 6.06 1.60 - 6.10 10*3/uL LAB HEMATOLOGY METHOD 10/17/2024 4:41 PM EDT [facility] Lymphocytes Absolute 2.31 1.20 - 3.90 10*3/uL LAB HEMATOLOGY METHOD 10/17/2024 4:41 PM EDT [facility] Monocytes Absolute 1.05(H) 0.30 - 0.90 10*3/uL LAB HEMATOLOGY METHOD 10/17/2024 4:41 PM EDT [facility] Eosinophils Absolute 0.06 0.00 - 0.50 10*3/uL LAB HEMATOLOGY METHOD 10/17/2024 4:41 PM EDT [facility] Basophils Absolute 0.01 0.00 - 0.10 10*3/uL LAB HEMATOLOGY METHOD 10/17/2024 4:41 PM EDT [facility] Immature Granulocytes Absolute 0.05 0.00 - 0.06 10*3/uL LAB HEMATOLOGY METHOD 10/17/2024 4:41 PM EDT [facility] Blood Venous blood specimen / Unknown Venipuncture / Unknown 10/17/2024 4:05 PM EDT 10/17/2024 4:24 PM EDT Narrative [facility] - 10/17/2024 4:41 PM EDT Therapeutic decision making should be based on absolute values, rather than percentages. Job Devine HYDRO PLANT SITE MANAGER, CNM LAB BLOOD ORDERABLES Final Result [facility] [address] [place] [address] documented in this encounter Visit Diagnoses Diagnosis Hypokalemia- Primary Hypopotassemia Electrolyte abnormality Electrolyte and fluid disorders not elsewhere classified Supervision of high risk , antepartum- Primary documented in this encounter Admitting Diagnoses Diagnosis [...] Mon10/20/24 at 1216, Routine, Pre-Delivery, indigestion, heartburn ceFAZolin (Ancef) injection 2 g 2 g, Intravenous, Once in OR, 1 dose, Starting on Mon10/17/24 at 2040, Until Ryan 10/20/24 at 1216, Routine, Pre-Delivery cyclobenzaprine (Flexeril) tablet 5 mg 5 mg, Oral, 3 times daily PRN, Starting on Mon10/17/24 at 2338, Until Ryan 10/20/24 at 0744, Routine, muscle spasms Given 10/19/2024 12:19 PM EDT 5 mg Given 10/19/2024 1:21 AM EDT 5 mg Given 10/18/2024 6:39 PM EDT 5 mg dextrose 5 % and lactated Ringer's infusion 75 mL/hr, Intravenous, Continuous, Starting on Mon10/18/24 at 1030, Until Ryan 10/20/24 at 1216, Routine New Bag 10/18/2024 10:25 AM EDT 75 mL/hr 75 mL /hr famotidine (Pepcid) tablet 20 mg 20 mg, Oral, 2 times daily PRN, Starting on Mon10/17/24 at 1911, Until Ryan 10/20/24 at 1216, Routine, Pre-Delivery, indigestion, heartburn, or inj IV famotidine PF (Pepcid) injection 20 mg 20 mg, Intravenous, 2 times daily PRN, Starting on Mon10/17/24 at 1911, Until Ryan 10/20/24 at 1216, Routine, Pre-Delivery, indigestion, heartburn, [...] Starting on Carrie 10/17/24 at 2328, Until Mon10/20/24 at 1216, Routine, [...] Spit, 4 times daily PRN, Starting on Ryan 10/20/24 at 0402, Until Mon10/20/24 at 1216, Routine, [...] 1 dose, On Mon10/20/24 at 0315, Routine 10/20/2024 3:25 AM EDT 2 g 25 mL/hr magnesium sulfate IVPB 4 g 4 g, Intravenous, Once, 1 dose, On Mon10/17/24 at 2000, Routine 10/17/2024 8:26 PM EDT 4 g 25 mL/hr magnesium sulfate IVPB 4 g 4 g, Intravenous, Once, 1 dose, On Mon10/18/24 at 1145, Routine 10/18/2024 12:38 PM EDT 4 g 25 mL/hr magnesium sulfate IVPB 4 g 4 g, Intravenous, Once, 1 dose, On Mon10/18/24 at 1915, Routine 10/18/2024 6:56 PM EDT 4 g 25 [...] Intravenous, Every 6 hours PRN, Starting on [facility] 10/17/24 at 1911, Until Ryan 10/20/24 at 1216, Routine, Pre-Delivery, vomiting, nausea ondansetron ODT (Zofran-ODT) disintegrating tablet 4 mg 4 mg, Oral, Every 6 hours PRN, Starting on [facility] 10/17/24 at 1911, Until Ryan 10/20/24 at 1216, Routine, Pre-Delivery, nausea, vomiting pantoprazole (Protonix) EC tablet 40 mg 40 mg, Oral, Daily, First dose on [facility] 10/19/24 at 0200, Until Discontinued, Routine Given 10/19/2024 1:21 AM EDT 40 mg pantoprazole (Protonix) injection 40 mg 40 mg, Intravenous, Daily, First dose on Ryan 10/20/24 at 0900, Until Discontinued, Routine potassium [...] Oral, 3 times daily, First dose on [facility] 10/17/24 at 2100, Until Discontinued, Routine Given [...] doses, First dose (after last reorder) on [facility] 10/19/24 at 0900, Last dose on [facility] 10/19/24 at 1400, RoutineIndications:Hypokalemia New 10/19/2024 3:08 PM EDT 10 mEq 100 mL/hr 10/19/2024 1:42 PM EDT 10 mEq 100 mL/hr 10/19/2024 12:39 PM EDT 10 mEq 100 mL/hr potassium chloride IVPB 10 mEq 10 mEq, Intravenous, Every 1 hour, 2 doses, First dose on [facility] 10/19/24 at 1715, Last dose on [facility] 10/19/24 at 1815, RoutineIndications:Hypokalemia 10/19/2024 6:34 PM EDT 10 mEq 100 mL/hr 10/19/2024 5:17 PM EDT 10 mEq 100 mL/hr potassium chloride IVPB 20 mEq 20 mEq, Intravenous, Every 1 hour, 3 doses, First dose on [facility] 10/17/24 at 2030, Last dose on [facility] 10/17/24 at 2230, RoutineIndications:Hypokalemia 10/17/2024 11:18 PM EDT [...] Starting on [facility] 10/17/24 at 1909, Until Ryan 10/20/24 at 1216, Routine, Pre-Delivery, line care, 3 mL flush for PERIPHERAL IV CARE ONLY. sodium citrate-citric acid (Bicitra) 500-334 MG/5ML solution 30 mL 30 mL, Oral, Once in OR, 1 dose, Starting on Carrie 10/17/24 at 2040, Until Ryan 10/20/24 at 1216, Routine, Pre-Delivery sodium phosphates [...] Starting on [facility] 10/17/24 at 2040, Until Ryan 10/20/24 at 1216, Routine, Pre-Delivery, per MD ordersIndications:Tachysystole traZODone (Desyrel) tablet 50 mg 50 mg, Oral, Daily, First dose (after last modification) on Ryan 10/20/24 at 1015, Until Discontinued, Routine ursodiol (Actigall) [...] 1030, Routine 1002 (Given - Provider: Tex Harman RN) hydrOXYzine (Vistaril) injection 25 mg (COMPLETED) 25 mg, Intramuscular, Once, 1 dose, On Mon10/20/24 at 0045, Routine 0336 (Given - Provider: Kelly Sanabria RN - Comment: patient wanted to wait and take medication now) magnesium oxide (Mag-Ox) tablet 400 mg (CANCELED) 400 mg, Oral, 2 times daily, First dose on Carrie 10/17/24 at 2100, Until Discontinued, Routine 0915 (Given - Provider: Tex Harman RN) magnesium oxide (Mag-Ox) tablet 800 mg 800 mg, Oral, 2 times daily, First dose (after last modification) on Mon10/18/24 at 2100, Until Discontinued, Routine 2045 (Given - Provider: Tiffany Fabian RN) 0802 (Given - Provider: Brandee Cross RN)2250 (Not Given - Provider: Kelly Sanabria, [...] Mon10/17/24 at 2000, Until Discontinued, Routine, Pre-Delivery 0915 [...] 2100, Routine 1002 (Given - Provider: Tex Harman, BRIT)2045 (Given - Provider: Tiffany Fabian RN) 08 (Given - Provider: Brandee Cross RN)2102 (Given - Provider: Kelly Sanabria RN) [...] on 10/20/24 at 0900, Until Discontinued, Routine 952 (Not Given - Provider: Sybil Lockett RN - Reason: Patient/family refused) potassium & sodium phosphates (Phos-NaK) 280-160-250 MG packet 2 packet 2 packet, Oral, 4 times daily with meals and nightly, First dose on Mon10/18/24 at 2100, Until Discontinued, Routine 2111 (Given - Provider: Tiffany Fabina RN) 0953 (Not Given - Provider: Brandee [...] to swallow meds)2108 (Given - Provider: Kelly Sanabria RN) 0953 (Not Given - Provider: Sybil Lockett RN - Reason: Patient/family refused) potassium chloride CR (Klor-Con) ER tablet 40 mEq 40 mEq, Oral, 3 times daily, First dose on Carrie 10/17/24 at 2100, Until Discontinued, Routine 0915 (Given - Provider: Tex Harman RN)1128 (Canceled Entry - Provider: Tex Harman RN)162 (Given - Provider: Tex Harman RN)2045 (Given [...] RN)1036 (New Bag - Provider: Tex Harman RN)1257 (New Bag - Provider: Tex Harman RN)1449 (New Bag - Provider: Tex Harman RN) potassium chloride IVPB 10 mEq (COMPLETED) 10 mEq, Intravenous, Every 1 hour, 6 doses, First dose (after last reorder) on 10/19/24 at 0900, Last dose on Mon10/19/24 at 1400, Routine 0904 (New Bag - Provider: Brandee Cross RN)1010 (New Bag - Provider: Brandee Cross RN)1128 (New Bag - Provider: Brandee Cross RN)1239 (New Bag - Provider: Brandee Cross, RN)1342 (New Bag - Provider: Brandee Cross RN)1508 (New Bag - Provider: Brandee Cross RN) potassium chloride IVPB 10 mEq (COMPLETED) 10 mEq, Intravenous, Every 1 hour, 2 doses, First dose on 10/19/24 at 1715, Last dose on 10/19/24 at 1815, Routine 1717 (New Bag - [...] 2040 (New Bag - Provider: Tiffany Fabian, RN) sucralfate (Carafate) 1 GM/10ML suspension 1 [...] Routine 0915 (Given - Provider: Tex Harman, BRIT)1626 (Given - Provider: Tex Harman, BRIT)2045 (Given - Provider: Tiffany Fabian, RN) 0802 [...] Continuous, Starting on Mon10/18/24 at 1030, Until 10/20/24 at 1216, Routine 1025 (New Bag - [...] Tex Harman, BRIT)1839 (Given - Provider: Tex Harman, BRIT) 0121 (Given - Provider: Rosio Dunne RN)1219 (Given - Provider: Brandee Cross, BRIT) famotidine (Pepcid) tablet 20 mg(Linked Group 1) 20 mg, Oral, 2 times daily PRN, Starting on Carrie 10/17/24 at 1911, Until 10/20/24 at 1216, Routine, Pre-Delivery, indigestion, heartburn, or inj IV 1002 (See Alternative - Provider: Tex HarmanBRIT) famotidine PF (Pepcid) injection 20 mg(Linked Group [...] Harman RN) 0122 (Given - Provider: Rosio Dunne RN)2338 (Given - Provider: Kelly Sanabria RN) magic mouthwash BLM (FIRST-Mouthwash) suspension 15 mL 15 mL, Swish & Spit, 4 times daily PRN, Starting on 10/20/24 at 0402, Until 10/20/24 at 1216, Routine, mucositis melatonin tablet 3 mg 3 mg, Oral, Nightly PRN, Starting on Carrie 10/17/24 at 2349, Until 10/20/24 at 1216, Routine, sleep 0122 (Given - Provider: Rosio Dunne RN) ondansetron (Zofran) 4 MG/5ML solution 4 mg(Linked [...] PRN, Starting on Mon10/17/24 at 2335, Until 10/20/24 at 1216, Routine, nausea, vomiting 0017 (Given - Provider: Orlin Jimenez, RN)1353 (Given - Provider: Tex Harman, RN) 1219 (Given - Provider: Brandee Cross RN) promethazine (Phenergan) tablet 12.5 mg 12.5 mg, Oral, Every 6 hours PRN, Starting on Carrie 10/17/24 at 2110, Until 10/20/24 at 1216, Routine, nausea, vomiting 0121 (Given - Provider: Rosio Dunne RN) sodium chloride 0.9 % flush 3 mL(Linked [...] Intravenous, Every 6 hours PRN, Starting on [facility] 10/17/24 at 1911, Until Ryan 10/20/24 at 1216, Routine, Pre-Delivery, vomiting, nausea Or ondansetron (Zofran) 4 MG/5ML solution 4 mgJump to med 4 mg, Oral, Every 6 hours PRN, Starting on [facility] 10/17/24 at 1911, Until Ryan 10/20/24 at 1216, Routine, Pre-Delivery, nausea, vomiting Group 3: Insert peripheral IV (CANCELED) Once, On [facility] 10/17/24 at 1910, For 1 occurrence, Pre-Delivery And Saline lock IV (CANCELED) Once, On [facility] 10/17/24 at 1910, For 1 occurrence, Pre-Delivery And sodium chloride 0.9 % flush 3 mLJump to med 3 mL, Intravenous, As needed, Starting on [facility] 10/17/24 at 1909, Until Ryan 10/20/24 at 1216, Routine, Pre-Delivery, line care, [...] documented as of this encounter Care Teams News Technical Director Relationship Specialty Start Date End Date Norma Friedman APRN [address] [place] [address] RAFAELA Shin [id number] PCP - General 09/23/24 Lizz Trinh, RN [facility] Registered Nurse Cardiology 09/26/24 documented as of this encounter
--- OUTSIDE RECORDS SUMMARY | 2024-10-19 01:03 | XMS_ITS | Encounter Summary ---
Author Organization Healthcare Address [address] [place] [address] Care Team Providers Care Summer Clerk Name Role Phone jennyfer Kadedev Coy APRN Primary Care Provider +1- [phone] Lizz Trinh RN Unavailable Unavailable Reason for Visit * Auth/Cert (Routine) Specialty Diagnoses / Procedures Referred By Tarik t Referred To Contact Diagnoses Hypokalemia Electrolyte abnormality Hilton Montelongo MD [address] [address] Phone: tel: fax: [facility] Delivery [address] [place] [address] Phone: tel: fax: Referral ID Status Reason Start Date Expiration Date Visits Re quested Visits Authorized [id number] 1 1 Encounter Details Date Type Department Care Team (Late st Contact Info) Description 10/19/2024 1:03 AM EDT Anesthesia Event [facility] Delivery [address] [place] [address] Everett Farrar MD [address] [place] [address] Anesthesia Record Procedure Summary Procedure Name Responsible [...] more drinks on one occasion? 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 No relevant active problems [...] [facility] [place] st Contact Info) Description 10/24/2024 8:00 AM EDT Office Visit [facility] [place] [address] [facility], [address] [place] [address] Nneka Block MD [address] [place] [address] 10/24/2024 9:45 AM EDT Routine Medical Office Building Obstetrics and Gynecology [address] [facility] [address] [facility], [address] [place] [address] Nneka Gipson MD [address] [place] [address] 12/25/2024 1:00 PM EST Office Visit [facility] [address] [facility] [address] [facility], [address] [place] [address] documented as of this encounter [...] documented as of this encounter Care Teams Summer Clerk Relationship Specialty Start Date End Date Norma Friedman APRN [address] [place] [address] PCP - General 09/23/24 Lizz Trinh, RN [facility] Registered Nurse Cardiology 09/26/24 documented as of this encounter
--- OUTSIDE RECORDS SUMMARY | 2024-10-22 13:35 | XMS_ITS | Encounter Summary ---
[facility] [address] [place] [id number] Care Team Providers Care Reel Hooker Name Role Phone IvyNorma goldberg JOLENE Primary Care Provider + [phone] Reason for Visit * Reason Onset Date Comments Advice Only 10/10/2024 Encounter Details Date Type Department Care Team (Late st Contact Info) Description 10/10/2024 Telephone [facility] MATERNAL MEDICINE [address] [facility] [place] [address] [place] [address] Lyudmila Germain, regional sales executive Only Social History Tobacco Use Types Packs/Day Years Used Date Smoking Tobacco: Never Smokeless Tobacco: Never Alcohol Use Standard Drinks/Week Comments Never 0 (1 standard drink = 0.6 oz pur e alcohol) [facility] Utilities Answer Date Recorded In the past 12 months has [employer], gas, oil, or water [employer] threatened to shut off services in your [...] and heating? Not hard at all 05/28/2024 [facility] of Occupat ional Health - Occupational Stress [...] Late entry: Patient called desiring appointment with [facility] due to hypokalemia and hypomagnesemia requiring infusions every other day. Per practice coordinator, referral was received here last week but our physicians determined patient needs to continue receiving [facility] care at as she sees otherspeciality physicians (cardiology, nephrology) there as well. Discussed this with patient who states Dr. Weller () refused to see her again and she has no options. Patient reported her physicians at [facility] told her if she has another cardiac event she will . Upon reviewing notes from specialists at , cardiology note states patient will wear environmental monitoring specialist and return in 4 weeks to discuss r esults and delivery plans and monitoring. Patient states cardiology refuses to see her until she ispostpartum - although it appears she has an appointment on 10/24. Per note from nephrology at , limited options for treatment other than continued repletion. Informed patient our office will reach out to [facility] at to determine if there is an issue in scheduling her there and we will call her back. After our office talked to [facility], a nurse there states there is no issue with her scheduling and she is more than welcome to come back for appointments. Called patient back, informed her she is welcome to schedule a follow-up at [facility] and gave her their office number. documented in this encounter Plan of Treatment Upcoming Encounters Date Type Department Care Team (Late st Contact Info) Description 01/20/2025 3:30 PM EST Office Visit [facility] GASTROENTEROLOGY [address] [facility] [address] [place] [address] Robbin Escalante MD [address] [facility] [address] [place] [address] documented as of this encounter Visit Diagnoses Not on filedocumented in this encounter Additional Health Concerns Assessment Noted Time PHQ-2 Depression Total Score: 2 05/28/19 4:39 PM EDT documented as of this encounter Care Teams Reel Hooker Relationship Specialty Start Date End Date Norma Friedman APRN [address] [place] [address] [place] [address] PCP - General Family Medicine 05/14/24 documented as of this encounter
--- OUTSIDE RECORDS SUMMARY | 2024-10-22 13:35 | XMS_ITS | Clinical Summary ---
Author Organization [facility] Address [address] [place] [address] Care Team Providers Care Brush Or Broom Cutter Name Role Phone Unavailable Primary Care Provider Unavailabl e Source Comments [facility] is fully rolled out with thefollowing exceptions:General Clinical Research [facility] Social History Tobacco Use Types [...]
--- OUTSIDE RECORDS SUMMARY | 2024-10-22 13:35 | XMS_ITS | Encounter Summary ---
Author Organization Healthcare Address [address] [place] [address] Care Team Providers Care Mannequin Wig Maker Name Role Phone Norma Friedman JOLENE Primary Care Provider +1- [phone] Lizz Trinh RN Unavailable Unavailable Encounter Details Date Type Department Care Team ([facility] Contact Info) Description 10/21/2024 Telephone Ch costume designer (l&d) Virtual Dept. [address] [place] [address] Ana Deal MD [address] [place] [address] Social History Tobacco Use Types Packs/Day Years [...] more drinks on one occasion? Never 09/23/2024 [place] Depression Scale Answer Date Recorded [place] Depression Scale Total 0 09/23/2024 The thought [...] encounter Miscellaneous Notes * Telephone Encounter - Ana Deal MD - 10/21/2024 7:08 PM EDT Called patient to discuss results for positive PICC cath tip culture at OSH revealing micrococcus luteus/lylae as well as positive serum HSV while inpatient. She also reported that she tested positive for staph esophagitis as well today and is receiving antibiotics for treatment from her PCP. 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 Discussed with [facility] and MFM Fellow clinical application consultant, Perry Gaeg, who agree that the patient should have repeat cultures as soon as possible. She reports that she is feeling well overall, denies fever/chills. Reports persistent esophageal pain. Wediscussed return precautions at length including general malaise, fever, chills, etc. She states that she will present to the hospital if she begins to have these symptoms. She plans to have labs drawn at her clinic visit 10/24 due to inability to get to a lab sooner. RTC precautions discussed at length. documented in this encounter Plan of Treatment Upcoming Encounters Date Type Department Care Team ([facility] st Contact Info) Description 10/24/2024 8:00 AM EDT Office Visit [facility] [address] [facility], [address] [place] [address] Nneka Block MD [address] [place] [address] 10/24/2024 9:45 AM EDT Routine Medical Office Building Obstetrics and Gynecology [address] [facility], [address] [place] [address] Nneka Gipson MD [address] [place] [address] 12/25/2024 1:00 PM EST Office Visit [facility] Nephrology, Bone & Mineral Metabolism [address] [facility], [address] [place] [address] documented as of this encounter Visit Diagnoses Diagnosis Esophagitis- Primary Unspecified esophagitis Supervision of high risk , antepartum- Primary documented in this encounter Additional Health Concerns Assessment Noted Time A fall risk assessment has been complete d for the patient 09/26/2024 8:15 AM EDT A Body Mass Index follow-up plan has been documented for the patient 10/20/2024 9:52 AM EDT documented as of this encounter Care Teams Mannequin Wig Maker Relationship Specialty Start Date End Date Norma Friedman APRN [address] [place] [address] PCP - General 09/23/24 Lizz Trinh, RN [facility] Registered Nurse Cardiology 09/26/24 documented as of this encounter
--- OUTSIDE RECORDS SUMMARY | 2024-10-22 13:35 | XMS_ITS | Encounter Summary ---
[facility] [address] [place] [id number] Care Team Providers Care Waitstaff Captain Name Role Phone Ivyashlyn Valentinoseven JOLENE Primary Care Provider + [phone] Encounter Details Date Type Department Care Team (Late st Contact Info) Description 06/26/2024 Results Follow-Up [facility] OBGYN [address] [address] Koby Roberts MD [address] [place] [address] Social History Tobacco Use Types Packs/Day Years Used Date Smoking Tobacco: Never Smokeless Tobacco: Never Alcohol Use Standard Drinks/Week Comments Never 0 (1 standard drink = 0.6 oz pur e alcohol) [facility] Utilities Answer Date Recorded In the past 12 months has [employer], gas, oil, or water [employer] threatened to shut off services in your [...] hard at all 05/28/2024 [facility] of Occupat ional Health - Occupational Stress [...] Visit [facility] GASTROENTEROLOGY [address] [facility] [address] [facility] [address] Robbin Escalante MD [address] [address] documented as of this encounter Visit Diagnoses Not on filedocumented in this encounter Additional Health Concerns Assessment Noted Time PHQ-2 Depression Total Score: 2 05/28/19 25 4:39 PM EDT documented as of this encounter Care Teams Waitstaff Captain Relationship Specialty Start Date End Date Norma Friedman APRN [address] [place] [address] [place] APPIAH [address] PCP - General Family Medicine 05/14/24 documented as of this encounter
--- OUTSIDE RECORDS SUMMARY | 2024-10-22 13:35 | XMS_ITS | Encounter Summary ---
[facility] [address] [place] [id number] Care Team Providers Care Insurance Operations Rep Name Role Phone IvyKade goldbergjoseseven JOLENE Primary Care Provider + [phone] Encounter Details Date Type Department Care Team (Late st Contact Info) Description 09/26/2024 Documentation [facility]OR DELIVERY [address] [place] [address] Christy Zabala, RN Social History Tobacco Use [...] hard at all 05/28/2024 [facility] of Occupat ional Health - Occupational Stress [...] Review of chart [facility]. Will plan to review chart around [facility]C for delivery information. documented in this encounter Plan of Treatment Upcoming Encounters Date Type Department Care Team (Late st Contact Info) Description 01/20/2025 3:30 PM EST Office Visit [facility] GASTROENTEROLOGY [address] [phone] Robbin Escalante MD [address] [address] documented as of this encounter Visit Diagnoses Not on filedocumented in this encounter Additional Health Concerns Assessment Noted Time PHQ-2 Depression Total Score: 2 05/28/19 25 4:39 PM EDT documented as of this encounter Care Teams Insurance Operations Rep Relationship Specialty Start Date End Date Norma Friedman APRN [address] [place] [address] [place] [address] PCP - General Family Medicine 05/14/24 documented as of this encounter
--- OUTSIDE RECORDS SUMMARY | 2024-10-22 13:35 | XMS_ITS | Clinical Summary ---
Author Organization [facility] [place] [address] Phone Care Team Providers Care Construction Engineering Manager Name Role Phone Unavailable Primary Care [...] migh t be different from the original. [facility] - Edwardo Ojeda MD Interventional Pain Protocol: NS Appt 03/29/22 Letter Sent Maxime report completed (EVERY 3 MONTHS) ( 03/23/22) Pharmacy: [facility] [address] [place] [address] [phone] - [phone] No known active problems Social History Tobacco [...] patient's age to complete this topic Insurance [facility] [id number]
--- OUTSIDE RECORDS SUMMARY | 2024-10-22 13:36 | XMS_ITS | Referral Summary ---
Author Organization [facility] ([place], [place], [place], [place]) Address [address] [place] [address] Care Team Providers Care Size Mixer Name Role Phone Unavailable Primary Care Provider [...]
--- OUTSIDE RECORDS SUMMARY | 2024-10-22 13:36 | XMS_ITS | Encounter Summary ---
[facility] [address] [place] [phone] Care Team Providers Care Milling/Polishing Operator Name Role Phone IvyKade goldbergjoseseven JOLENE Primary Care Provider + [phone] Encounter Details Date Type Department Care Team (Late st Contact Info) Description 09/03/2024 Results Follow-Up [facility] OBGYN [address] [place] [address] Staci Jain MD [address] [facility] [address] [place] [address] Social History Tobacco Use Types Packs/Day Years Used Date Smoking Tobacco: Never Smokeless Tobacco: Never Alcohol Use Standard Drinks/Week Comments Never 0 (1 standard drink = 0.6 oz pur e alcohol) [facility] Utilities Answer Date Recorded In the past 12 months has Remote Assistant, gas, oil, or water [employer] threatened to shut off services in [...] [facility] of Occupat ional Health - Occupational [...] Office Visit [facility] GASTROENTEROLOGY [address] [address] Robbin Escalante MD [address] [address] documented as of this encounter Visit Diagnoses Not on filedocumented in this encounter Additional Health Concerns Assessment Noted Time PHQ-2 Depression Total Score: 2 05/28/19 4:39 PM EDT documented as of this encounter Care Teams Milling/Polishing Operator Relationship Specialty Start Date End Date Norma Friedman APRN [address] [place] [address] [place] [address] PCP - General Family Medicine 05/14/24 documented as of this encounter
--- OUTSIDE RECORDS SUMMARY | 2024-10-22 13:36 | XMS_ITS | Encounter Summary ---
Author Organization Healthcare Address [address] [place] [address] Care Team Providers Care Pocket Stitcher Name Role Phone Norma Friedman AUDIT CLERK Primary Care Provider +[phone]- [phone] Lizz Trinh RN Unavailable Unavailable Encounter Details [...] more drinks on one occasion? Never 09/23/2024 [place] Depression Scale Answer Date Recorded [place] Depression Scale Total 0 09/23/2024 The thought [...] Description 10/24/2024 8:00 AM EDT Office Visit [facility] [place] [address] [facility], [address] [place] [address] Nneka Block MD [address] [place] [address] 10/24/2024 9:45 AM EDT Routine Medical Office Building Obstetrics and Gynecology [address] [facility], [address] [place] [address] Nneka Gipson MD [address] [place] [address] 12/25/2024 1:00 PM EST Office Visit [facility] Nephrology, Bone & Mineral Metabolism [address] [facility], [address] [place] [address] documented as of this encounter Visit Diagnoses Not on filedocumented in this encounter Additional Health Concerns Assessment Noted Time A fall risk assessment has been complete d for the patient 09/26/2024 8:15 AM EDT A Body Mass Index follow-up plan has been documented for the patient 09/27/2024 10:22 AM EDT documented as of this encounter Care Teams Pocket Stitcher Relationship Specialty Start Date End Date Norma Friedman APRN [address] [place] [address] PCP - General 09/23/24 Lizz Trinh, RN [facility] Registered Nurse Cardiology 09/26/24 documented as of this encounter
--- OUTSIDE RECORDS SUMMARY | 2024-10-22 13:36 | XMS_ITS | Encounter Summary ---
[facility] [address] [place] [address] Care Team Providers Care Theatrical Agent Name Role Phone Ivyashlyn Norma FERNÁNDEZ Primary Care Provider + [phone] Encounter Details Date Type Department Care Team (Late st Contact Info) Description 08/27/2024 Telephone [facility] OBGYN [address] [place] [address] Staci Jain MD [address] [facility] [address] [place] [address] Social History Tobacco Use Types Packs/Day Years Used Date Smoking Tobacco: Never Smokeless Tobacco: Never Alcohol Use Standard Drinks/Week Comments Never 0 (1 standard drink = 0.6 oz pur e alcohol) [facility] Utilities Answer Date Recorded In the past 12 months has [employer], [employer], oil, or water [employer] threatened to shut off services in your [...] at all 05/28/2024 [facility] [place] of Occupat ional Health - Occupational [...] Office Visit [facility] GASTROENTEROLOGY [address] [phone] Robbin Escalante MD [address] [address] documented as of this encounter Visit Diagnoses Diagnosis History of hypokalemia- Primary documented in this encounter Additional Health Concerns Assessment Noted Time PHQ-2 Depression Total Score: 2 05/28/19 25 4:39 PM EDT documented as of this encounter Care Teams Theatrical Agent Relationship Specialty Start Date End Date Norma Friedman APRN [address] [place] [address] [place] [address] PCP - General Family Medicine 05/14/24 documented as of this encounter
--- OUTSIDE RECORDS SUMMARY | 2024-10-22 13:36 | XMS_ITS | Encounter Summary ---
Author Organization Healthcare Address [address] [place] [address] Care Team Providers Care Reinforcing Steel Machine Operator Name Role Phone Norma Friedman JOLENE Primary Care Provider +1- [phone] Lizz Trinh RN Unavailable Unavailable Encounter Details Date Type Department Care Team (Late st Contact Info) Description 10/16/2024 Results Follow-Up [facility] [address] [place] [address] Nneka Block MD [address] [place] [address] Social History Tobacco Use Types [...] more drinks on one occasion? Never 09/23/2024 [place] Depression Scale Answer Date Recorded [place] Depression Scale Total 0 09/23/2024 The thought [...] Risk Indicated 10/18/2024 4:00 PM EDT Tex Harman, RN * Question Answer Date of Assessment Author 1. Wish to be (Past 1 Month) No 025 4:00 PM EDT Tex Harman, RN 2. Non-Specific Active Suici mike Thoughts (Past 1 Month) No 10/18/2024 4:00 PM EDT Dandre Harman, RN 6. Suicidal Behavior (Lifetime) No 4:00 PM EDT Tex Harman, RN documented as of this encounter Plan of Treatment Upcoming Encounters Date Type Department Care Team (Late st Contact Info) Description 10/24/2024 8:00 AM EDT Office Visit [facility] [address], [address] [place] [address] Nneka Block MD [address] [place] [address] 10/24/2024 9:45 AM EDT Routine Medical Office Building Obstetrics and Gynecology [address] [facility] [address] [facility] [address], [address] [place] [address] Nneka Gipson MD [address] [place] [address] 12/25/2024 1:00 PM EST Office Visit [facility] [address] [facility] [address] [facility] [address], [address] [place] [address] documented as of this encounter [...] documented as of this encounter Care Teams Reinforcing Steel Machine Operator Relationship Specialty Start Date End Date Norma Friedman APRN [address] [place] [address] PCP - General 09/23/24 Lizz Trnih, RN [facility] Registered Nurse Cardiology 09/26/24 documented as of this encounter
--- OUTSIDE RECORDS SUMMARY | 2024-10-22 13:36 | XMS_ITS | Encounter Summary ---
Author Organization Healthcare Address [address] [place] [address] Care Team Providers Care Centrex Radio Operator Name Role Phone Norma Friedman JOLENE Primary Care Provider [phone]- [phone] Lizz Trinh RN Unavailable Unavailable Reason for Visit * Reason Onset Date Comments [facility] Care coordiantion 10/17/2024 Encounter Details Date Type Department Care Team ([facility] st Contact Info) Description 10/17/2024 Telephone Medical Office Building Obstetrics and Gynecology [address], [address] [place] [address] Tracy Segovia, RN [facility] OB ULTRASOUND CLINIC 1st FLR [facility] Care coordiantion Social History Tobacco Use Types [...] more drinks on one occasion? Never 09/23/2024 [place] Depression Scale Answer Date Recorded [place] Depression Scale Total 0 09/23/2024 The [...] reviewed that Whitney was seen today by [facility],she had a non reactive NST, and BPP 6/8 ( breathing not seen). Discussed that Whitney declined presenting to [facility] for extended monitoring today or returning to our clinic tomorrow (10/18/24) for a repeat NST. Whitney is agreeable for do an NST with her local OB provider as she is already scheduled for an infusion with their office. Qi agreeable to schedule patient for NST on10/18/24. Offered to send notes from today's appointment, Qi provided me with her office's fax# ([phone]). No additional questions at this time. documented in this encounter Plan of Treatment Upcoming Encounters Date Type Department Care Team (Late st Contact Info) Description 10/24/2024 8:00 AM EDT Office Visit [facility] [address], [address] [place] [address] Nneka Block MD [address] [place] [address] 10/24/2024 9:45 AM EDT Routine Medical Office Building Obstetrics and Gynecology [address], [address] [place] [address] Nneka Gipson MD [address] [place] [address] 12/25/2024 1:00 PM EST Office Visit [facility] Nephrology, Bone & Mineral Metabolism [address], [address] [place] [address] documented as of this encounter Visit Diagnoses Not on filedocumented in this encounter Additional Health Concerns Assessment Noted Time A fall risk assessment has been complete d for the patient 09/26/2024 8:15 AM EDT A Body Mass Index follow-up plan has been documented for the patient 10/20/2024 9:52 AM EDT documented as of this encounter Care Teams Centrex Radio Operator Relationship Specialty Start Date End Date Norma Friedman APRN [address] [place] [address] PCP - General 09/23/24 Lizz Trinh, RN [facility] Registered Nurse Cardiology 09/26/24 documented as of this encounter
--- OUTSIDE RECORDS SUMMARY | 2024-10-22 13:36 | XMS_ITS | Encounter Summary ---
[facility] Address [address] [place] [id number] Care Team Providers Care Event Attendant Name Role Phone Ivyashlyn Norma FERNÁNDEZ Primary Care Provider + [phone] Encounter Details Date Type Department Care Team (Late st Contact Info) Description 09/02/2024 Telephone [facility] OBGYN [address] [address] Staci Jain MD [address] [place] [phone] Social History Tobacco Use Types Packs/Day Years Used Date Smoking Tobacco: Never Smokeless Tobacco: Never Alcohol Use Standard Drinks/Week Comments Never 0 (1 standard drink = 0.6 oz pur e alcohol) [facility] Utilities Answer Date Recorded In the past 12 months has [employer], [employer], oil, or water [employer] threatened to shut off services in your [...] She just got d/c'd from [facility] 2 hours ago and they gave her a total 10 MLE of K+ and 3 units of Mag and 2 liters of LR. She has decided to transfer care to [facility] as it iscloser to her like 15 min away. She wants you (Dr. Jain) to know this has nothing to you but rather the nurses and swimming pool salesperson doctor did not relay the labs to you in a faster fashion. She said you can call her if you want and she is not angry. Dr. Jain was notified. * Telephone Encounter - Frederick Gruber RN - 09/02/2024 3:10 PM EDT Emtricst message sent to the pt regarding outpt infusion apt tomorrow at [place]. documented in this encounter Plan of Treatment Upcoming Encounters Date Type Department Care Team (Late st Contact Info) Description 01/20/2025 3:30 PM EST Office Visit [facility] GASTROENTEROLOGY [address] [address] [place] [address] Robbin Escalante MD [address] [facility] [address] [place] [address] documented as of this encounter Visit Diagnoses Not on filedocumented in this encounter Additional Health Concerns Assessment Noted Time PHQ-2 Depression Total Score: 2 05/28/19 25 4:39 PM EDT documented as of this encounter Care Teams Event Attendant Relationship Specialty Start Date End Date Norma Friedman APRN [address] [place] [address] [place] [address] PCP - General Family Medicine 05/14/24 documented as of this encounter
--- OUTSIDE RECORDS SUMMARY | 2024-10-22 13:36 | XMS_ITS ---
Author Organization [facility] Address [address] [place] [address] Care Team Providers Care Edger Machine Setter Name Role Phone Unavailable Primary Care Provider Unavailabl e Transplant Episode Kidney Potential Donor [facility] ([place], [place]) - [facility] Referred on 05/03/2022 Marked as Deferred on 05/04/2022 Reason: Other Kidney CoordinatorNadine Augustin R.N. Phone: N/A Fax: N/A Email: N/A Care Team Name Role Phone Fax Email Nadine Augustin R.N. Kidney Coordinator N/A N/A N/A Events Pre-Donation Referred: 05/03/2022
--- OUTSIDE RECORDS SUMMARY | 2024-10-22 13:36 | XMS_ITS | Encounter Summary ---
[facility] Address [address] [place] [address] Care Team Providers Care Irrigation Laborer Name Role Phone Elder Norma FERNÁNDEZ Primary Care Provider + [phone] Encounter Details Date Type Department Care Team (Latest Contact Info) Description 08/29/2024 Travel Social History Tobacco Use Types Packs/Day Years Used Date Smoking Tobacco: Never Smokeless Tobacco: Never Alcohol Use Standard Drinks/Week Comments Never 0 (1 standard drink = 0.6 oz pur e alcohol) [facility] Utilities Answer Date Recorded In the past 12 months has [employer] electric, gas, oil, or water company threatened [...] at all 05/28/2024 [facility] [place] of Occupat ional Health - Occupational Stress [...] Office Visit [facility]STR[facility] [address] [facility] [place] [address] Robbin Escalante MD [address] [place] [address] documented as of this encounter Visit Diagnoses Not on filedocumented in this encounter Additional Health Concerns Assessment Noted Time PHQ-2 Depression Total Score: 2 05/28/19 25 4:39 PM EDT documented as of this encounter Care Teams Irrigation Laborer Relationship Specialty Start Date End Date Nomra Friedman APRN [address] [place] [address] [place] [address] PCP - General Family Medicine 05/14/24 documented as of this encounter
--- OUTSIDE RECORDS SUMMARY | 2024-10-22 13:36 | XMS_ITS | Encounter Summary ---
[facility] [address] [place] [id number] Care Team Providers Care Tax Associate Name Role Phone Ivyashlyn Norma FERNÁNDEZ Primary Care Provider + [phone] Encounter Details Date Type Department Care Team (Late st Contact Info) Description 08/28/2024 Telephone [facility] O[facility]YN [address] [address] Staci Jain MD [address] [place] [phone] Social History Tobacco Use Types Packs/Day Years Used Date Smoking Tobacco: Never Smokeless Tobacco: Never Alcohol Use Standard Drinks/Week Comments Never 0 (1 standard drink = 0.6 oz pur e alcohol) [facility] Utilities Answer Date Recorded In the past 12 months has [employer], gas, oil, or water [employer] threatened to shut off services in your [...] hard at all 05/28/2024 [facility] of Occupat ional Health - Occupational [...] GED or equivalent No 05/28/2024 Preferred Language Persian 05/28/2024 PHQ-2 Answer Date Recorded Patient Health [...] sit with a family member admitted to [facility] today and does not know if she can make it back for labs (BMP). She does have an appt in [facility] at 10 am tomorrow. Advisedthat it [...] states she was supposed to come into [place] office today to have labs drawn however sheis currently hung up at [facility] is wondering if she could just have labs drawn there? documented in this encounter Plan of Treatment Upcoming Encounters Date Type Department Care Team (Late st Contact Info) Description 01/20/2025 3:30 PM EST Office Visit [facility] [address] [facility] [address] [place] [address] Robbin Escalante MD [address] [facility] [address] [place] [address] documented as of this encounter Visit Diagnoses Not on filedocumented in this encounter Additional Health Concerns Assessment Noted Time PHQ-2 Depression Total Score: 2 05/28/19 25 4:39 PM EDT documented as of this encounter Care Teams Tax Associate Relationship Specialty Start Date End Date Norma Friedman APRN [address] [place] [address] [place] [address] PCP - General Family Medicine 05/14/24 documented as of this encounter
--- OUTSIDE RECORDS SUMMARY | 2024-10-22 13:36 | XMS_ITS | Clinical Summary ---
Author Organization [facility] Address [address] [place] [address] Care Team Providers Care Repair Servicer Name Role Phone Norma Friedman APRN Primary Care Provider + [phone] Allergies Active Allergy Reactions Criticality Noted Date [...] Care Team Description 5 Telephone [facility] [address] [facility] [address] [place] [address] Lyudmila Germain, refining still operator Only 5 Documentation [facility] LABOR DELIVERY [address] [place] [address] Christy Zabala RN 5 Results Follow-Up [facility] OBGYN [address] [place] [address] Rob Wharton MD 5 Telephone [facility] [facility] [address] [place] [address] Rob Wharton MD 5 10:00 AM EDT Routine [facility] [place] [address] Rob Wharton MD GA: 26w4d 5 Travel 5 Telephone [facility] [address] [facility] [address] [place] [address] Rob Wharton MD 5 Telephone [facility] [place] [address] Rob Wharton MD 5 1:44 PM EDT Anesthesia Event [facility] ENDO SUITES [address] [place] [address] Akash Anguiano MD Lanham, John, CRNA 5 1:33 PM EDT - 5 2:05 PM EDT Surgery [facility] [address] [facility] [place] [address] Blu Alvarado MD ESOPHAGOGASTRODUODENOSCOPY [36910 (CPT )] 5 1:59 PM EDT - 5 4:28 PM EDT Hospital Encounter [facility] ANTEPARTUM [address] [place] [address] Rob Wharton MD Brunner, Mark I, MD Dysphagia, unspecified type (Primary Dx) Discharge Disposition: Home or Self Care 5 10:15 AM EDT Routine [facility] OBGYN [address] [place] [address] Jacey Mathews, MANUSCRIPT EDITOR GA: 25w 5 Telephone [facility] O[facility] [address] [place] [address] Jacey Mathews, MANUSCRIPT EDITOR 5 Travel 5 Patient Outreach [facility] DEL[facility] [address] [place] [address] Christy Zabala RN 5 9:10 AM EDT Routine [facility] [address]00 [facility] [address] [place] [address] Rob Wharton MD GA: 21w 5 8:00 AM EDT Office Visit [facility] MATERNAL MEDICINE 1700 [facility] [address] [place] [address] Sebastian Larsen MD History of prior with small for gestational age (Primary Dx) 5 7:44 AM EDT - 5 11:59 PM EDT Hospital Encounter [facility] US PER DIAG CTR [address] [place] [address] Kelly Delgado, MANUSCRIPT EDITOR care, antepartum, unspecified ; High risk due [...] hard at all 05/28/2024 [facility] [place] [facility] Occupat ional Health - Occupational Stress [...] Visit [facility]Y [address] [facility] [address] [place] [address] Robbin Escalante MD [address] [facility] [address] [place] [address] Health Maintenance Due Date Last [...] 08/20/2024 1:55 PM EDT Dysphagia, unspecified type DE ESOPHAGOGASTRODUODENOSCOP Y TRANSORAL DIAGNOSTIC 08/20/2024 1:44 PM EDT Dysphagia, unspecified type UPPER GI ENDOSCOPY 08/20/2024 1:09 PM EDT BASIC METABOLIC PANEL STAT 08/20/2024 5:25 AM EDT POTASSIUM STAT 08/19/2024 8:53 PM EDT ABORH 2ND SPECIMEN VERIFICATION STAT 08/19/2024 4:34 PM EDT NONSTRESS TEST Routine 08/19/2024 4:17 PM EDT [facility] Routine 08/19/2024 3:25 [...] AM EDT Multigravida in second trimester [facility] Routine 07/22/2024 9:10 [...] 08/30/2024 6:09 AM EDT Performed at: [address] [place] [id number] Import Coordinator: Kevin Harman MD, Phone: [phone] Patient Fasting: N Rob Wharton MD LAB BLOOD ORDERABLES Final Result [facility] (AMBULATORY) [address] [place] [address], [facility] [address] [place] [address], [place] [phone] * (ABNORMAL) Comprehensive Metabolic Panel (08/29/2024 11:05 AM EDT) Only the most recent of2 resultswithin the time period is included. [facility] Glucose 72 65 - 99 [...] 08/30/2024 6:09 AM EDT Performed at: [address] [place] [address] [id number] Import Coordinator: Kevin Harman MD, Phone: [phone] Patient Fasting: N us Rob Wharton MD LAB BLOOD ORDERABLES Final Result [facility] (AMBULATORY) [address] [place] [address], [facility] [address] [place] [address], [place] [phone] * (ABNORMAL) POC Urinalysis Dipstick (08/29/2024 10:13 AM EDT) Only the most recent of2 resultswithin the time period is included. Glucose, UA Negative Negative mg/dL [facility] Protein, POC Trace(A) Negative mg/dL [facility] Urine 08/29/2024 10:1 3 AM EDT Rob Wharton MD POINT OF CARE TEST OR DERABLES Final Result [facility]
[address] [place] [address], [place] [phone] * BH AN ETT AIRWAY (08/20/2024 2:02 [...] symmetric chest rise and fall Liborio Peralta INSOLE RASPER ANESTHESIA ORDERABLES Final Res ult * Tissue Pathology Exam (08/20/2024 1:55 PM EDT) Case Report Surgical Pathology Report Case: [id number] Authorizing Provider: Blu Alvarado MD Collected: 08/20/2024 01:55 PM Ordering Location: [facility] Received: 08/20/2024 02:14 PM ENDO SUITES Pathologist: Khalida Rhoades DO Specimen: Gastric, Antrum, antrum bx for path 08/22/2024 9:18 AM EDT [facility] Clinical Information Dysphagia, unspecified type 08/22/2024 9:18 AM EDT [facility] Final Diagnosis Stomach, antrum, biopsy: 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 pylori is negative (no organisms are identified) Negative for intestinal metaplasia, dysplasia, or malignancy 08/22/2024 9:18 AM EDT [facility] at 0918 EDT Gross Description 1. Gastric, Antrum. Received in formalin labeled antrum biopsy is a 0.4 x 0.2 x 0.2 cm pink-see soft tissue fragment submitted entirely in a single cassette. HDM 08/22/2024 9:18 AM EDT [facility] Microscopic Description The slides are reviewed and demonstrate histopathologic features supporting the above rendered diagnosis. 08/22/2024 9:18 AM EDT [facility] Tissue Pyloric antrum structure / Unknown 08/20/2024 1:55 PM EDT 08/20/2024 2:14 PM EDT us Blu Alvarado MD PATHOLOGY/CYTOLOGY ORDERABLES Final Result [facility]
[address] [place] [address], * Upper GI Endoscopy (08/20/2024 1:09 PM EDT) us Blu Alvarado MD INTERFACE NEEDS Final Result * (ABNORMAL) Basic Metabolic Panel (08/20/2024 5:25 AM EDT) Glucose 84 65 - 99 mg/dL 08/20/2024 6:13 AM EDT [facility] BUN 2.3(L) 6.0 - 20.0 mg/dL 08/20/2024 6:13 AM EDT [facility] Creatinine 0.51(L) 0.57 - 1.00 mg/dL 08/20/2024 6:13 AM EDT [facility] Sodium 139 136 - 145 mmol/L 08/20/2024 6:13 AM EDT [facility] Potassium 3.5 3.5 - 5.2 mmol/L 08/20/2024 6:13 AM EDT [facility] Chloride 109(H) 98 - 107 mmol/L 08/20/2024 6:13 AM EDT [facility] CO2 23.5 22.0 - 29.0 mmol/L 08/20/2024 6:13 AM EDT [facility] Calcium 7.8(L) 8.6 - 10.5 mg/dL 08/20/2024 6:13 AM EDT [facility] BUN/Creatinine Ratio 4.5(L) 7.0 - 25.0 08/20/2024 6:13 AM EDT [facility] Anion Gap 6.5 5.0 - 15.0 mmol/L 08/20/2024 6:13 AM EDT [facility] eGFR 126.6 >60.0 mL/min/1.7 3 08/20/2024 6:13 AM EDT [facility] Blood Venipuncture / Unknown 08/20/2024 5:25 AM EDT 08/20/2024 5:46 AM EDT Narrative [facility] - 08/20/2024 6:13 AM EDT GFR [...] Final Resu lt Performing Organization Address City/[facility] Co de Phone Number [facility]
[address] [place] [address], * (ABNORMAL) Potassium (08/19/2024 8:53 PM EDT) Potassium 2.7(L) 3.5 - 5.2 mmol/L 08/19/2024 9:20 PM EDT [facility] Blood Venipuncture / Unknown 08/19/2024 8:53 PM EDT 08/19/2024 9:04 PM EDT Kt Fan DO LAB BLOOD ORDERABLES Final Result Performing Organization Address [facility] Co de Phone Number [facility]
[address] [place] [address], [place] [phone] * ABO RH Specimen Verification (08/19/2024 4:34 PM EDT) ABO Type O 08/19/2024 7:39 PM EDT [facility] LABOR[facility] RH type Positive 08/19/2024 7:39 PM EDT [facility] Blood Venipuncture / Unknown 08/19/2024 4:34 PM EDT 08/19/2024 4:53 PM EDT Rob Wharton MD BLOOD BANK TEST ORDER FRANCO Final Result [facility]OR[facility]
[address] [place] [address], * [facility] (08/19/2024 3:25 PM EDT) Only the most recent of2 resultswithin the time period is included. Anatomical Region Laterality Modality Ultrasound 08/19/2024 3:09 PM EDT Narrative 08/19/2024 4:54 PM EDT PAT NAME: CAROLE GIRARD MED REC#: [id number] DA: [id number] PAT GEND: F PAT TYPE: E EXAM TRAVIS: [id number] REF PHYS ROB WHARTON Comparison Studies The [...] EFW (oz) 9 oz EFW by: Hadlock (WEY-DI-FC-FL) Extended Cav. septi pel. tr 4.7 mm Supervisor Sample 3.8 mm CM 7.5 mm 84% Nicolaides [...] Heart / Thorax 3-vessel view: Appears normal 1-kzjxrl-swtsfdh view: Appears normal Stomach: Appears normal Kidneys: [...] in 4wks for growth. Coding ======= Description: [id number] Follow Up Tree Doctor: RT Annetta Hartmann , RUST Physician: Jo Chappell MD Electronically signed by: Jo Chappell MD at: 16:54 Procedure Note Jo Chappell MD - 08/19/2024 PAT NAME: CAROLE GIRARD MED REC#: [id number] DA: 1990 PAT GEND: F PAT TYPE: E EXAM TRAVIS: [id number] REF PHYS ROB WHARTON Comparison Studies The findings of this study are compared to the prior ultrasound studydated 07/22/24 Patient Status Inpatient Indication ======== History of c/s x1. History of . Vaginal bleeding. Maternal Assessment Ytdfsq901 cm Height (ft)5 ft Height (in)4 in Xpprly84 kg Weight (lb)158 lb BMI27.31 kg/m Method ======= Transabdominal ultrasound examination. View: Limited by patient bodyhabitus ========= Love . Number of fetuses: 1 Dating ====== Method of dating:based on stated DUSTY GA by prior [id number] w + 1 d DUSTY by prior assessment:12/01/2024 Ultrasound examination on:08/19/2024 GA by U/S based upon:AC, BPD, Femur, HC GA by U/S24 w + 2 d DUSTY by U/S:12/07/2024 Previous dating:based on stated DUSTY, selected on 07/22/2024 Agreed DUSTY of previous datin12/01/2024 Assigned:based on stated DUSTY, selected on 08/19/2024 Assigned GA25 w + 1 d Assigned DUSTY:12/01/2024 [id number] d Biometry Standard BPD57.6 mm 23w 4d 5% Hadlock OFD81.6 mm 26w 4d 88% Jamal HC225.7 mm 24w 4d 13% Hadlock Cerebellum tr28.9 mm 25w 2d 62% Hill AC194.9 mm 24w 1d 15% Hadlock Femur44.9 mm 24w 6d 27% Hadlock Vtvpwjw00.3 mm 25w 3d 50% Jamal HC / AC1.16 PVL258 g 24w 2d 16% Hadlock EFW (lb)1 lb EFW (oz)9 oz EFW by:Hadlock (SMV-NF-ON-FL) Extended Cav. septi pel. tr4.7 mm Vp3.8 mm CM7.5 mm 84% Nicolaides Head / Face / Neck Cephalic index0.71 <1% Nicolaides Extremities / Bony Struc FL / BPD0.78 FL / HC0.20 FL / AC0.23 Other Structures UAB629 bpm General Evaluation Cardiac activity present. FHR [...] normal Heart / Thorax 3-vessel view:Appears normal 6-twfrfc-zhfxnod view:Appears normal Stomach:Appears normal Kidneys:Appears normal Bladder:Appears normal Gender:female Wants to know gender:yes Maternal Structures Uterus / Cervix Cervix:Visualized Approach:Transabdominal Cervical ujncer91.9 mm Doppler Arterial Umbilical A PI1.01 32% [...] office in 4wks for growth. Coding ======= Description:51346-52 Follow Up Tree Doctor: RT Annetta Hartmann , RUST Physician: Jo Chappell MD Electronically signed by: Jo Chappell MD at: 16:54 us Kt Fan DO [facility] US ORDERABLES Final Res ult * Urinalysis, Microscopic Only - Urine, Clean Catch (08/19/2024 3:02 PM EDT) RBC, UA 0-2 None Seen, 0-2 /HPF 08/19/2024 3:33 PM EDT [facility] WBC, UA 0-2 None Seen, 0-2 /HPF 08/19/2024 3:33 PM EDT [facility] Bacteria, UA None Seen None Seen /HPF 08/19/2024 3:33 PM EDT [facility] Squamous Epithelial Cells, UA 0-2 None Seen, 0-2 /HPF 08/19/2024 3:33 PM EDT [facility] Hyaline Casts, UA None Seen None Seen /LPF 08/19/2024 3:33 PM EDT [facility] Methodology Automated Microscopy 08/19/2024 3:33 PM EDT [facility] Urine Urine specimen obtained by clean catch procedure / Unknown Collection / Unknown 08/19/2024 3:02 PM EDT 08/19/2024 3:13 PM EDT us Kt Fan DO URINE ORDERABLES Final Resu lt [facility]
[address] [place] [address], * (ABNORMAL) Urinalysis With Microscopic If Indicated (No Culture) - Urine, Clean Catch (08/19/2024 3:02 PM EDT) Color, UA Yellow Yellow, Straw 08/19/2024 3:33 PM EDT [facility] Appearance, UA Clear Clear 08/19/2024 3:33 PM EDT [facility] pH, UA >=9.0(H) 5.0 - 8.0 08/19/2024 3:33 PM EDT [facility] Specific Carrie, UA 1.018 1.005 - 1.030 08/19/2024 3:33 PM EDT [facility] Glucose, UA Negative Negative 08/19/2024 3:33 PM EDT [facility] Ketones, UA 15 mg/dL (1+)(A) Negative 08/19/2024 3:33 PM EDT [facility] Bilirubin, UA Negative Negative 08/19/2024 3:33 PM EDT [facility] Blood, UA Negative Negative 08/19/2024 3:33 PM EDT [facility] Protein, UA 30 mg/dL (1+)(A) Negative 08/19/2024 3:33 PM EDT [facility] Leuk Esterase, UA Negative Negative 08/19/2024 3:33 PM EDT [facility] Nitrite, UA Negative Negative 08/19/2024 3:33 PM EDT [facility] Urobilinogen, UA 1.0 E.U./dL 0.2 - 1.0 E.U./dL 08/19/2024 3:33 PM EDT [facility] Urine Urine specimen obtained by clean catch procedure / Unknown Collection / Unknown 08/19/2024 3:02 PM EDT 08/19/2024 3:13 PM EDT Kt Fan DO URINE ORDERABLES Final Resu lt [facility]
[address] [place] [address], * (ABNORMAL) CBC Auto Differential (08/19/2024 3:02 PM EDT) WBC 9.19 3.40 - 10.80 10*3/mm3 08/19/2024 3:23 PM EDT [facility] RBC 3.58(L) 3.77 - 5.28 10*6/mm3 08/19/2024 3:23 PM EDT [facility] Hemoglobin 10.5(L) 12.0 - 15.9 g/dL 08/19/2024 3:23 PM EDT [facility] Hematocrit 31.4(L) 34.0 - 46.6 % 08/19/2024 3:23 PM EDT [facility] MCV 87.7 79.0 - 97.0 fL 08/19/2024 3:23 PM EDT [facility] MCH 29.3 26.6 - 33.0 pg 08/19/2024 3:23 PM EDT [facility] MCHC 33.4 31.5 - 35.7 g/dL 08/19/2024 3:23 PM EDT [facility] RDW 13.4 12.3 - 15.4 % 08/19/2024 3:23 PM EDT [facility] RDW-SD 42.4 37.0 - 54.0 fl 08/19/2024 3:23 PM EDT [facility] MPV 12.0 6.0 - 12.0 fL 08/19/2024 3:23 PM EDT [facility] Platelets 241 140 - 450 10*3/mm3 08/19/2024 3:23 PM EDT [facility] Neutrophil % 66.8 42.7 - 76.0 % 08/19/2024 3:23 PM EDT [facility] Lymphocyte % 24.4 19.6 - 45.3 % 08/19/2024 3:23 PM EDT [facility] Monocyte % 7.6 5.0 - 12.0 % 08/19/2024 3:23 PM EDT [facility] Eosinophil % 0.7 0.3 - 6.2 % 08/19/2024 3:23 PM EDT [facility] Basophil % 0.2 0.0 - 1.5 % 08/19/2024 3:23 PM EDT [facility] Immature Grans % 0.3 0.0 - 0.5 % 08/19/2024 3:23 PM EDT [facility] Neutrophils, Absolute 6.14 1.70 - 7.00 10*3/mm3 08/19/2024 3:23 PM EDT [facility] Lymphocytes, Absolute 2.24 0.70 - 3.10 10*3/mm3 08/19/2024 3:23 PM EDT [facility] Monocytes, Absolute 0.70 0.10 - 0.90 10*3/mm3 08/19/2024 3:23 PM EDT [facility] Eosinophils, Absolute 0.06 0.00 - 0.40 10*3/mm3 08/19/2024 3:23 PM EDT [facility] Basophils, Absolute 0.02 0.00 - 0.20 10*3/mm3 08/19/2024 3:23 PM EDT [facility] Immature Grans, Absolute 0.03 0.00 - 0.05 10*3/mm3 08/19/2024 3:23 PM EDT [facility] nRBC 0.0 0.0 - 0.2 /100 WBC 08/19/2024 3:23 PM EDT [facility] Blood Line / Unknown 08/19/2024 3: 02 PM EDT 08/19/2024 3:10 PM EDT Kt Fan DO LAB BLOOD ORDERABLES Final Result [facility]
[address] [place] [address], * Protein / Creatinine Ratio, Urine - [...] [facility]
[address] [place] [address], * Type & Screen (08/19/2024 3:02 PM EDT) ABO Type O 08/19/2024 3:51 PM EDT [facility] RH type Positive 08/19/2024 3:51 PM EDT [facility] Antibody Screen Negative 08/19/2024 3:51 PM EDT [facility] T&S Expiration Date 08/22/2024 11:59:59 PM 08/19/2024 3:51 PM EDT [facility] Blood Line / Unknown 08/19/2024 3: 02 PM EDT 08/19/2024 3:15 PM EDT Kt Fan DO BLOOD BANK TEST ORDERABLES Edited Result - Final Performing Organization Address City/[facility]/ZIP Co de Phone Number [facility]
[address] [place] [address], * (ABNORMAL) Magnesium (08/19/2024 3:02 PM EDT) Magnesium 1.5(L) 1.6 - 2.6 mg/dL 08/19/2024 5:12 PM EDT [facility] Blood Line / Unknown 08/19/2024 3: 02 PM EDT 08/19/2024 3:10 PM EDT us Kt Fan DO LAB BLOOD ORDERABLES Final Result [facility]
[address] [place] [address], * Lipase (08/19/2024 3:02 PM EDT) Lipase 13 13 - 60 U/L 08/19/2024 3:36 PM EDT [facility] Blood Line / Unknown 08/19/2024 3: 02 PM EDT 08/19/2024 3:10 PM EDT Kt Fan DO LAB BLOOD ORDERABLES Final Result Performing Organization Address City/[facility]/ZIP Co de Phone Number [facility]
[address] [place] [address], * Amylase (08/19/2024 3:02 PM EDT) Pathologist [facility] Amylase 73 28 - 100 U/L 08/19/2024 3:36 PM EDT [facility] Blood Line / Unknown 08/19/2024 3: 02 PM EDT 08/19/2024 3:10 PM EDT Kt Fan DO LAB BLOOD ORDERABLES Final Result Performing Organization Address [facility] de Phone Number [facility]
[address] [place] [address], * Hepatitis C Antibody (04/12/2024) Pathologist [facility] Hep C Virus Ab negative Blood Historical Provider LAB BLOOD ORDERABLES Lena l Result from Last 3 Months or Most Recently Relevant to Health Maintenance Insurance [facility] Care Teams Repair Servicer Relationship Specialty Start Date End Date Norma Friedman APRN [address] [place] G[address] [place]FA[place] APPIAH [id number] PCP - General Family Medicine 05/14/24
--- OUTSIDE RECORDS SUMMARY | 2024-10-22 13:37 | XMS_ITS | Encounter Summary ---
Author Organization Healthcare Address [address] [place] [address] Care Team Providers Care Desk Editor Name Role Phone Unavailable Primary Care Provider Unavailabl e Encounter Details Date Type Department Care Team (Late Contact Info) Description 09/17/2024 Telephone [facility] Nephrology, Bone & Mineral Metabolism [address], [address] [place] [address] Sherley Gold, ULTRASOUND TECHNOLOGIST SONOGRAPHER GS - 7 MAIN MEDICAL-SURGICAL Social History [...] Description 10/24/2024 8:00 AM EDT Office Visit [facility] [place] [address], [address] [place] [address] Nneka Block MD [address] [place] [address] 10/24/2024 9:45 AM EDT Routine Medical Office Building Obstetrics and Gynecology [address], [address] [place] [address] Nneka Gipson MD [address] [place] [address] 12/25/2024 1:00 PM EST Office Visit [facility] Nephrology, Bone & Mineral Metabolism [address], [address] [place] [address] documented as of this encounter Visit Diagnoses Not on filedocumented in this encounter
--- OUTSIDE RECORDS SUMMARY | 2024-10-22 13:37 | XMS_ITS | Encounter Summary ---
Author Organization Healthcare Address [address] [place] [address] Care Team Providers Care Cotton Dispatcher Name Role Phone Norma Friedman JOLENE Primary Care Provider [phone] Lizz Trinh RN Unavailable Unavailable Encounter Details Date Type Department Care Team ([facility] Contact Info) Description 10/17/2024 Telephone Medical Office Building Obstetrics and Gynecology [address], [address] [place] [address] Tracy Segovia, RN [facility] [facility] Social History Tobacco Use Types Packs/Day [...] more drinks on one occasion? Never 09/23/2024 [place] Depression Scale Answer Date Recorded [place] Depression Scale Total 0 09/23/2024 The thought [...] from Brandee at Dr. Ramon's office in [place], she was calling because Whitney is notscheduled [...] ED for evaluation. I contacted Brenda OB bobtail driver with report on expectant patient. Message sent to Dr. Wheeler with patient update. documented in this encounter Plan of Treatment Upcoming Encounters Date Type Department Care Team (Late st Contact Info) Description 10/24/2024 8:00 AM EDT Office Visit [facility] [place] [address], [address] [place] [address] Nneka Block MD [address] [place] [address] 10/24/2024 9:45 AM EDT Routine Medical Office Building Obstetrics and Gynecology [address], [address] [place] [address] Nneka Gipson MD [address] [place] [address] 12/25/2024 1:00 PM EST Office Visit [facility] Nephrology, Bone & Mineral Metabolism [address], [address] [place] [address] documented as of this encounter Visit Diagnoses Not on filedocumented in this encounter Additional Health Concerns Assessment Noted Time A fall risk assessment has been complete d for the patient 09/26/2024 8:15 AM EDT A Body Mass Index follow-up plan has been documented for the patient 10/20/2024 9:52 AM EDT documented as of this encounter Care Teams Cotton Dispatcher Relationship Specialty Start Date End Date Norma Friedman APRN [address] [place] [address] PCP - General 09/23/24 Lizz Trinh, RN [facility] Registered Nurse Cardiology 09/26/24 documented as of this encounter
--- OUTSIDE RECORDS SUMMARY | 2024-10-22 13:37 | XMS_ITS | Encounter Summary ---
Author Organization Healthcare Address [address] [place] [address] Care Team Providers Care Process Artist Name Role Phone Norma Friedman JOLENE Primary Care Provider +1- [phone] Lizz Trinh RN Unavailable Unavailable Encounter Details Date Type Department Care Team (Late Contact Info) Description 07/22/2024 Community [facility] Community Practice [address] [place] [address] Sandy Cardenas MD [address] [facility] [address] [place] [id number] Social History Tobacco Use Types Packs/Day Years [...] Description 10/24/2024 8:00 AM EDT Office Visit [facility] [place] [address] [facility], [address] [place] [address] Nneka Block MD [address] [place] [address] 10/24/2024 9:45 AM EDT Routine Medical Office Building Obstetrics and Gynecology [address] [facility], [address] [place] [address] Nneka Gipson MD [address] [place] [address] 12/25/2024 1:00 PM EST Office Visit [facility] Nephrology, Bone & Mineral Metabolism [address] [facility], [address] [place] [address] documented as of this encounter Visit Diagnoses Not on filedocumented in this encounter Additional Health Concerns Infection Onset Date Last Indicated Resolved Time COVID-19 Rule-Out 10/17/2024 10/17/2024 10/19/2024 1:56 AM EDT Respiratory Rule-Out 10/17/2024 10/17/2024 025 11:23 PM EDT documented as of this encounter Care Teams Process Artist Relationship Specialty Start Date End Date Norma Friedman APRN [address] [place] [address] PCP - General 09/23/24 Lizz Trinh, RN [facility] Registered Nurse Cardiology 09/26/24 documented as of this encounter
--- OUTSIDE RECORDS SUMMARY | 2024-10-22 13:37 | XMS_ITS | Encounter Summary ---
Author Organization Healthcare Address [address] [place] [address] Care Team Providers Care Aircraft Machinist Helper Name Role Phone Norma Friedman APRN Primary Care Provider +1- [phone] Encounter Details Date Type Department Care Team [...] more drinks on one occasion? Never 09/23/2024 [place] Depression Scale Answer Date Recorded [place] Depression Scale Total 0 09/23/2024 The thought [...] Description 10/24/2024 8:00 AM EDT Office Visit [facility] [place] [address] [facility], [address] [place] [address] Nneka Block MD [address] [place] [address] 10/24/2024 9:45 AM EDT Routine Medical Office Building Obstetrics and Gynecology [address] [facility], [address] [place] [address] Nneka Gipson MD [address] [place] [address] 12/25/2024 1:00 PM EST Office Visit [facility] Nephrology, Bone & Mineral Metabolism [address] [facility], [address] [place] [address] documented as of this encounter Visit Diagnoses Not on filedocumented in this encounter Additional Health Concerns Assessment Noted Time A Body Mass Index follow-up plan has been documented for the patient 09/23/2024 8:28 PM EDT documented as of this encounter Care Teams Aircraft Machinist Helper Relationship Specialty Start Date End Date Norma Friedman APRN [address] [place] [address] PCP - General 09/23/24 documented as of this encounter
--- OUTSIDE RECORDS SUMMARY | 2024-10-22 13:37 | XMS_ITS | Encounter Summary ---
Author Organization [employer] ([place], [place], [place] Address [address] [place] [address] Care Team Providers Care Ice Guard Skating Rink Name Role Phone Unavailable Primary Care Provider Unavailabl e Encounter Details Date Type Department Care Team (Late st Contact Info) Description 07/17/2019 Transcribed Document [facility] Family Medicine [address] [place] [address] ProviderEleno MD [address] [place], [place] [address] Social History Tobacco Use Types Packs/Day Years [...] On: 07/17/2019 19:17 EDT by KARLENE MCKINLEY process stripper Process Patient Disposition : AMA/[place]/LWBS KARLENE MCKINLEY [...]
--- OUTSIDE RECORDS SUMMARY | 2024-10-22 13:37 | XMS_ITS | Encounter Summary ---
Author Organization [facility] Address [address] [place] [address] Care Team Providers Care Copper Flotation Operator Name Role Phone Elder Kadedev Coy APRN Primary Care Provider +1- [phone] Lizz Trinh RN Unavailable Unavailable Reason for Referral * Consultation (Routine) - Authorized Specialty Diagnoses / Procedures Referred By Tarik pedersen Referred To Contact Nephrology Diagnoses History of proteinuria syndrome care, subsequent , second trimester Staci Jain MD [address] [address] Phone: tel: fax: [facility] [place] Nephrology, Bone & Mineral Metabolism [address] [facility], [address] [place] [address] Phone: tel: fax: Referral ID Status Reason Start Date Expiration Date Visits Requested Visits Authorized [id number] Authorized Specialty Services Required 07/22/2024 01/21/2026 1 1 Encounter Details Date Type Department Care Team (Late st Contact Info) Description 07/22/2024 Community Orders Community Practice [address] [place] [address] Staci Jain MD [address] [place] [address] History of proteinuria syndrome (Primary Dx); care, [...] Upcoming Encounters Date Type Department Care Team ([facility] st Contact Info) Description 10/24/2024 8:00 AM EDT Office Visit [facility] [place] [address] [facility], [address] [place] [address] Nneka Block MD [address] [place] [address] 10/24/2024 9:45 AM EDT Routine Medical Office Building Obstetrics and Gynecology [address] [facility], [address] [place] [address] Nneka Gipson MD [address] [place] [address] 12/25/2024 1:00 PM EST Office Visit [facility] [place] Nephrology, Bone & Mineral Metabolism [address] [facility], [address] [place] [address] Scheduled Referrals Name Type Priority Associated Diagnoses Orde r Schedule Ambulatory referral to Nephrology Outpatient Referral Routine History of proteinuria syndrome care, subsequent , second trimester Expected: 07/22/2024 (Approximate), Expires: 01/23/2026 documented as of this encounter Visit Diagnoses Diagnosis History of proteinuria syndrome- Primary care, subsequent , second trimester Supervision of high risk , antepartum- Primary documented in this encounter Additional Health Concerns Infection Onset Date Last Indicated Resolved Time COVID-19 Rule-Out 10/17/2024 10/17/2024 10/19/2024 1:56 AM EDT Respiratory Rule-Out 10/17/2024 10/17/2024 025 11:23 PM EDT documented as of this encounter Care Teams Copper Flotation Operator Relationship Specialty Start Date End Date Norma Friedman APRN [address] [place] [address] PCP - General 09/23/24 Lizz Trinh, RN [facility] Registered Nurse Cardiology 09/26/24 documented as of this encounter
--- OUTSIDE RECORDS SUMMARY | 2024-10-22 13:37 | XMS_ITS | Encounter Summary ---
Author Organization [facility] Address [address] [place] [id number] Care Team Providers Care Glass Grinder Name Role Phone Elder Norma FERNÁNDEZ Primary Care Provider + [phone] Encounter Details Date Type Department Care Team (Late st Contact Info) Description 07/07/2024 Results Follow-Up [facility] OBGYN [address] [place] [address] [place] [id number] Kelly Delgado APRN [address] [facility] [address] [place] [address] Social History Tobacco Use Types Packs/Day Years Used Date Smoking Tobacco: Never Smokeless Tobacco: Never Alcohol Use Standard Drinks/Week Comments Never 0 (1 standard drink = 0.6 oz pur e alcohol) [facility] Utilities Answer Date Recorded In the past 12 months has [employer], gas, oil, or water [employer] threatened to shut off services in your [...] [facility] GASTROENTEROLOGY [address] [facility] [address] Robbin Escalante MD [address] [address] documented as of this encounter Visit Diagnoses Not on filedocumented in this encounter Additional Health Concerns Assessment Noted Time PHQ-2 Depression Total Score: 2 05/28/19 25 4:39 PM EDT documented as of this encounter Care Teams Glass Grinder Relationship Specialty Start Date End Date Norma Friedman APRN [address] [place] [address] [place] [place] [address] PCP - General Family Medicine 05/14/24 documented as of this encounter
--- OUTSIDE RECORDS SUMMARY | 2024-10-22 13:37 | XMS_ITS | Encounter Summary ---
Author Organization Healthcare Address [address] [place] [address] Care Team Providers Care Pm Head Cook Name Role Phone Norma Friedman APRN Primary Care Provider +1- [phone] Encounter Details Date Type Department Care Team [...] drinks on one occasion? Never 09/23/2024 [place] Depression Scale Answer Date Recorded [place] Depression Scale Total 0 09/23/2024 The thought [...] Description 10/24/2024 8:00 AM EDT Office Visit [facility] [place] [address] [facility], [address] [place] [address] Nneka Block MD [address] [place] [address] 10/24/2024 9:45 AM EDT Routine Medical Office Building Obstetrics and Gynecology [address] [facility], [address] [place] [address] Nneka Gipson MD [address] [place] [address] 12/25/2024 1:00 PM EST Office Visit [facility] [place] Nephrology, Bone & Mineral Metabolism [address] [facility], [address] [place] [address] documented as of this encounter Visit Diagnoses Not on filedocumented in this encounter Additional Health Concerns Assessment Noted Time A fall risk assessment has been complete d for the patient 09/25/2024 3:05 PM EDT A Body Mass Index follow-up plan has been documented for the patient 10/05/2024 8:54 PM EDT documented as of this encounter Care Teams Pm Head Cook Relationship Specialty Start Date End Date Norma Friedman APRN [address] [place] [address] PCP - General 09/23/24 documented as of this encounter
--- OUTSIDE RECORDS SUMMARY | 2024-10-22 13:37 | XMS_ITS | Encounter Summary ---
Author Organization [facility] Address [address] [place] [id number] Care Team Providers Care Campaign Consultant Name Role Phone Unavailable Primary Care Provider Unavailabl e Encounter Details Date Type Department Care Team (Late st Contact Info) Description 09/17/2024 Telephone Medical Office Building Obstetrics and Gynecology [address] [facility], [address] [place] [address] Josefina Shay RN [facility] [address] [place] [address] Social History Tobacco Use Types Packs/Day Years [...] Description 10/24/2024 8:00 AM EDT Office Visit [facility] [place] [address] [facility], [address] [place] [address] Nneka Block MD [address] [place] [address] 10/24/2024 9:45 AM EDT Routine Medical Office Building Obstetrics and Gynecology [address] [facility], [address] [place] [address] Nneka Gipson MD [address] [place] [address] 12/25/2024 1:00 PM EST Office Visit [facility] Nephrology, Bone & Mineral Metabolism [address] [facility], [address] [place] [address] documented as of this encounter Visit Diagnoses Not on filedocumented in this encounter
--- OUTSIDE RECORDS SUMMARY | 2024-10-22 13:37 | XMS_ITS | Encounter Summary ---
Author Organization Healthcare Address [address] [place] [address] Care Team Providers Care Pulling Unit Floorhand Name Role Phone Norma Friedman CENTRAL OFFICE MAINTAINER Primary Care Provider +1- [phone] Lizz Trinh RN Unavailable Unavailable Encounter Details [...] more drinks on one occasion? Never 09/23/2024 [place] Depression Scale Answer Date Recorded [place] Depression Scale Total 0 09/23/2024 The thought [...] Description 10/24/2024 8:00 AM EDT Office Visit [facility] [place] [address] [facility], [address] [place] [address] Nneka Block MD [address] [place] [address] 10/24/2024 9:45 AM EDT Routine Medical Office Building Obstetrics and Gynecology [address] [facility], [address] [place] [address] Nneka Gipson MD [address] [place] [address] 12/25/2024 1:00 PM EST Office Visit [facility] Nephrology, Bone & Mineral Metabolism [address] [facility], [address] [place] [address] documented as of this encounter [...] documented as of this encounter Care Teams Pulling Unit Floorhand Relationship Specialty Start Date End Date Norma Friedman APRN [address] [place] [address] PCP - General 09/23/24 Lizz Trinh, RN [facility] Registered Nurse Cardiology 09/26/24 documented as of this encounter
--- OUTSIDE RECORDS SUMMARY | 2024-10-22 13:37 | XMS_ITS | Encounter Summary ---
Author Organization Healthcare Address [address] [place] [address] Care Team Providers Care Route Inspector Name Role Phone Unavailable Primary Care Provider Unavailabl e Reason for Referral * Consultation (Routine) - Closed Specialty Diagnoses / Procedures Referred By Contac t Referred To Contact Nephrology Diagnoses Hypokalemia Liborio Weller MD [address] [facility] [address] [place] [address] Phone: tel: fax: [facility] Nephrology, Bone & Mineral Metabolism [address] [facility], [address] [place] [address] Phone: tel: fax: Referral ID Status Reason Start Date Expiration Date V isits Requested Visits Authorized [id number] Closed Specialty Services Required 09/14/2024 03/16/2026 1 1 Scheduling Instructions Severe hypokalemia in the setting of Encounter Details Date Type Department Care Team (Late st Contact Info) Description 09/14/2024 Telephone [facility] Obstetrics & Gynecology [address] [place] [address] Susi Wren MD [address] [place] [address] Social History Tobacco Use Types [...] had an outpatient workup with Nephrology at [facility] that was negative, she [...] Description 10/24/2024 8:00 AM EDT Office Visit [facility] [place] [address] [facility], [address] [place] [address] Nneka Block MD [address] [place] [address] 10/24/2024 9:45 AM EDT Routine Medical Office Building Obstetrics and Gynecology [address] [facility], [address] [place] [address] Nneka Gipson MD [address] [place] [address] 12/25/2024 1:00 PM EST Office Visit [facility] Nephrology, Bone & Mineral Metabolism [address] [facility], [address] [place] [address] Scheduled Referrals Name Type Priority Associated Diagnoses Order Schedule Ambulatory referral to Nephrology Clinic Outpatient Referral Routine Hypokalemia 1 Occurrences starting 09/14/2024 until 03/18/2026 documented as of this encounter Visit Diagnoses Diagnosis Hypokalemia- Primary Hypopotassemia Supervision of high risk , antepartum- Primary documented in this encounter
--- OUTSIDE RECORDS SUMMARY | 2024-10-22 13:37 | XMS_ITS ---
Author Organization [facility] Address [address] [place] [address] Care Team Providers Care Scrubber Operator Name Role Phone Norma Friedman APRN Primary Care Provider Motherhood Connection Status:Engaged (Active) Start date:05/23/2024 Enrollment date:05/23/2024 Case Team Name Relationship Phone Bindu Castellon RN Nurse Navigator Christy Zabala RN(Responsible Staff) Nurse Navig ator Continued Care and Services Coordination
--- OUTSIDE RECORDS SUMMARY | 2024-10-22 13:37 | XMS_ITS | Clinical Summary ---
Author Organization [employer] ([place], [place], [place], [place]) Address [address] [place] [address] Care Team Providers Care Aviation Ordnance Officer Name Role Phone Unavailable Primary Care [...]
--- OUTSIDE RECORDS SUMMARY | 2024-10-22 13:38 | XMS_ITS | Encounter Summary ---
Author Organization Healthcare Address [address] [place] [address] Care Team Providers Care Evs Tech Name Role Phone Norma Friedman JOLENE Primary Care Provider +1- [phone] Lizz Trinh RN Unavailable Unavailable Encounter Details [...] more drinks on one occasion? Never 09/23/2024 [place] Depression Scale Answer Date Recorded [place] Depression Scale Total 0 09/23/2024 The thought [...] Description 10/24/2024 8:00 AM EDT Office Visit [facility] [place] [address] [facility], [address] [place] [address] Nneka Block MD [address] [place] [address] 10/24/2024 9:45 AM EDT Routine Medical Office Building Obstetrics and Gynecology [address] [facility], [address] [place] [address] Nneka Gipson MD [address] [place] [address] 12/25/2024 1:00 PM EST Office Visit [facility] Nephrology, Bone & Mineral Metabolism [address] [facility], [address] [place] [address] documented as of this encounter [...] documented as of this encounter Care Teams Evs Tech Relationship Specialty Start Date End Date Norma Friedman APRN [address] [place] [address] PCP - General 09/23/24 Lizz Trinh, RN [facility] Registered Nurse Cardiology 09/26/24 documented as of this encounter
--- OUTSIDE RECORDS SUMMARY | 2024-10-22 13:38 | XMS_ITS | Encounter Summary ---
Author Organization Healthcare Address [address] [place] [address] Care Team Providers Care Pharmaceutical Specialty Representative Name Role Phone Norma Friedman MMI TEACHER Primary Care Provider +1- [phone] Lizz Trinh RN Unavailable Unavailable Encounter Details Date Type Department Care Team (Latest Contact Info) Description 10/19/2024 Travel Social History Tobacco Use Types Packs/Day [...] more drinks on one occasion? Never 09/23/2024 [place] Depression Scale Answer Date Recorded [place] Depression Scale Total 0 09/23/2024 The thought [...] Description 10/24/2024 8:00 AM EDT Office Visit [facility] [place] [address] [facility], [address] [place] [address] Nneka Block MD [address] [place] [address] 10/24/2024 9:45 AM EDT Routine Medical Office Building Obstetrics and Gynecology [address] [facility], [address] [place] [address] Nneka Gipson MD [address] [place] [address] 12/25/2024 1:00 PM EST Office Visit [facility] [place] Nephrology, Bone & Mineral Metabolism [address] [facility], [address] [place] [address] documented as of this encounter [...] as of this encounter Care Teams Pharmaceutical Specialty Representative Relationship Specialty Start Date End Date Norma Friedman APRN [address] [place] [address] PCP - General 09/23/24 Lizz Trinh, RN [facility] Registered Nurse Cardiology 09/26/24 documented as of this encounter
--- OUTSIDE RECORDS SUMMARY | 2024-10-22 13:39 | XMS_ITS | Clinical Summary ---
Author Organization [facility] Address [address] [place] [address] Care Team Providers Care Director Talent Name Role Phone Norma burger JOLENE Primary Care Provider [phone] Lizz Trinh RN Unavailable Unavailable Allergies Active Allergy Reactions Criticality Noted Date Comments Peanut Allergen Powder-Dnfp Hives Medium 09/23/2024 Tobacco Other - please document in the comment field,Shortness of breath High 05/28/2024 SOB when exposed to smoke, contact dermatitis with skin contact Medications Prenat MV-Min w/Vs-Kfhgws-EHZ ( COMPLETE PO) 12/26/19 19 Active thiamine (Vitamin B-1) 100 MG tablet Take 1 tablet by mouth 1 time each day. 09/02/19 25 Active FeroSul 325 (65 Fe) MG tablet Take 1 tablet by mouth daily. 09/13/19 25 Active potassium chloride CR (K-Tab) 20 MEQ ER tablet Take 2 tablets by mouth every 4 hours. Do not crush, chew, or split. Active magnesium oxide (Mag-Ox) 400 (240 Mg) MG tablet Take 2 tablets by mouth 2 times a day. 10/05/19 25 Active polyethylene glycol (Miralax) 17 GM/SCOOP powder Take 17 g by mouth 2 times a day. 10/05/19 25 Active promethazine (Phenergan) 12.5 MG tablet Take 1 tablet by mouth 3 times a day. 09/28/19 25 Active ursodiol (Actigall) 300 MG capsule Take 1 capsule by mouth 2 times a day. 10/12/19 25 Active potassium chloride 20 MEQ/100ML IVPB Infuse 400 mL into a venous catheter every other day. Given 80-100 mEq every other day. Active hydrOXYzine pamoate (Vistaril) 25 MG capsule Take 1 capsule by mouth every 6 hours as needed for anxiety. 30 capsule 10/21/19 25 Active cyclobenzaprine (Flexeril) 5 MG tablet Take 1 tablet by mouth 3 times a day. 30 tablet 10/21/19 25 Active valACYclovir (Valtrex) 1 g tabletIndications :Esophagitis Take 1 tablet by mouth 2 times a day for 10 days. 20 tablet 10/22/19 25 025 Active potassium chloride CR 10 MEQ PO ER tablet Take 1 tablet by mouth 2 times a day. 09/03/19 25 025 Discontinued(E ntered in Error) metoprolol succinate XL (Toprol XL) 25 MG 24 hr tablet Take 1 tablet by mouth 2 times a day. Do not crush or chew. 60 tablet 1 09/24/19 25 025 Discontinued metoprolol succinate XL (Toprol XL) 25 MG 24 hr tablet Take 0.5 tablets by mouth 2 times a day. Do not crush or chew. 30 tablet 1 09/24/19 25 025 Discontinued Jnkvhsfq-Rzj-By-F A ( 1 + IRON PO) 025 [...] each day. 025 Discontinued(E ntered in Error) Active Problems Problem Noted Date Diagnosed Date Electrolyte abnormality 10/17/2024 Hypokalemia 09/25/2024 Estimated Date of Delivery Comme nts Yes 12/01/2024 Date entered eliel or to episode creation Encounters Date Type Department Care Team Description 10/21/2024 Telephone after school program assistant (l&d) Virtual Dept. [address] [place] [address] Ana Deal MD 10/19/2024 1:03 AM EDT Anesthesia Event [facility] Labor and Delivery [address] [place] [address] Everett Farrar MD 10/19/2024 Travel 10/18/2024 Travel 10/17/2024 3:47 PM EDT - 10/20/2024 10:16 AM EDT Hospital Encounter [facility] Labor and Delivery [address] [place] [address] Hilton Montelongo MD Discharge Disposition: Home or Self Care 10/17/2024 10:30 AM EDT - 10/17/2024 3:46 PM EDT Hospital Encounter [facility] Obstetrics and Gynecology [address], [address] [place] [address] NST (non-stress test) nonreactive Discharge Disposition: Home or Self Care 10/17/2024 9:30 AM EDT NST Medical Office Building Obstetrics and Gynecology [address], [address] [place] [address] growth restriction antepartum (Primary Dx) 10/17/2024 9:15 AM EDT Routine [facility] Obstetrics and Gynecology [address], [address] [place] [address] Dilip Gipson MD NST (non-stress test) nonreactive (Primary Dx); Supervision of high risk , antepartum 10/17/2024 Telephone [facility] Obstetrics and Gynecology [address], [address] [place] [address] Tracy Segovia, RN 10/17/2024 Telephone Medical [facility] Building Obstetrics and Gynecology [address], [address] [place] [address] Tracy Segovia, RN [facility] Care coordiantion 10/17/2024 Travel 10/16/2024 Results Follow-Up [facility] [place] [address] [facility] [place] [address] Dilip Vasquez MD 09/26/2024 9:06 AM EDT - 09/26/2024 11:59 PM EDT Hospital Encounter Medical Office Building Cardiac Diagnostic Testing Medical Office Building Echo Lab [address], [address] [place] [address] Palpitations; Syncope and collapse Discharge Disposition: Home or Self Care 09/26/2024 8:00 AM EDT Office Visit [facility] [place] [address], [address] [place] [address] Dilip Vasquez MD Syncope and collapse (Primary Dx); Atrial fibrillation, unspecified type ([facility]/HCC); Palpitations 09/26/2024 Travel 09/25/2024 2:20 PM EDT Office Visit [facility] Nephrology, Bone & Mineral Metabolism [address], [address] [place] [address] Bill Patrick MD Hypokalemia (Primary Dx) 09/25/2024 Travel 09/23/2024 10:00 AM EDT Office Visit Medical [facility] Obstetrics and Gynecology [address], [address] [place] [address] Lee CenterLiborio Preciado MD Supervision of high risk , antepartum (Primary Dx); Cardiac arrhythmia, unspecified cardiac arrhythmia type 09/23/2024 Travel 09/17/2024 Telephone [facility] Nephrology, Bone & Mineral Metabolism [address], [address] [place] [address] Sherley Gold, WILLIAM 09/17/2024 Telephone Medical [facility] Obstetrics and Gynecology [address], [address] [place] [address] Josefina Shay RN 09/14/2024 Telephone [facility] Obstetrics [facility] Gynecology [address] [place] [address] Susi Wren MD 07/22/2024 [facility] [address] [place] [address] Staci Jain MD History of proteinuria syndrome (Primary Dx); care, subsequent , second trimester 07/22/2024 Community [facility] [address] [place] [address] Sandy Cardenas MD from Last 3 Months [...] Mass Index 25.23 10/18/2024 4:44 PM EDT Plan of Treatment Upcoming Encounters Date Type Department Care Team (Late st Contact Info) Description 10/24/2024 8:00 AM EDT Office Visit [facility] [place] [address], [address] [place] [address] Dilip Vasquez MD [address] [place] [address] 10/24/2024 9:45 AM EDT Routine Medical Office Building Obstetrics and Gynecology [address], [address] [place] [address] Dilip Gipson MD [address] [place] [address] 12/25/2024 1:00 PM EST Office Visit [facility] Nephrology, Bone & Mineral Metabolism [address], [address] [place] [address] Health Maintenance Due Date Last Done Comments [facility]-Infant/Child/Adol SDOH Screenings 1991 [facility]-Varicella Vaccines (1 of 2 - 13+ 2-dose series) 2004 [facility]- SDOH Screenings 2009 [facility]-Adult SDOH Screenings 2009 [facility]-Hepatitis B Vaccines (1 of 3 - 19+ 3-dose series) 2010 [facility]-Pap Smear 2012 [facility]-Hepatitis A Vaccines (2 of 2 - Risk 2-dose series) 07/16/2018 01/15/2018 [facility]-Cervical Cancer Screening 2021 [facility]-HPV/Cotest 2021 FLO-UFWOH-64 Vaccine ( - season) 2024 05/04/2022 [facility]-Influenza Vaccine (#1) 2024 03/30/2016, [facility]-RSV Vaccine: 60+ Years or (1 - Risk 1-dose series) 10/07/2024 [facility]-Depression Screening 09/23/2025 09/23/2024 [facility]-DTaP,Tdap,and Td Vaccines (8 - Td or Tdap) 09/09/2034 09/09/2024, 06/01/2022, 10/03/2020, Additional history exists [facility]-Zoster Vaccines (1 of 2) 2041 HPV Vaccines Completed 03/29/2017, 07/08, 06/23/2016 [facility]-HIV Screening Completed 01/22/2019 [facility]-Hepatitis C Screening Completed 01/22/2019 [facility]-Obesity Intervention Completed 025, 09/26/2024, 09/25/2024, Additional history exists [facility]-HIB Vaccines Aged Out No longer e [...] Procedure Name Priority Date/Time Associated Diagnosis Comments ROD MEJIAS VIRUS (EBV) QUANTITATIVE PCR Routine 10/19/2024 9:28 PM EDT CYTOMEGALOVIRUS (CMV) QUANTITATIVE PCR Routine 10/19/2024 9:28 PM EDT PHOSPHORUS, PLASMA Timed 10/19/2024 9: 28 PM EDT MAGNESIUM, PLASMA Timed 10/19/2024 9:2 8 PM EDT BASIC METABOLIC PANEL, PLASMA Timed 10/19/2024 9:28 PM EDT HERPES SIMPLEX VIRUS 1/2 QUALITATIVE BY PCR, SERUM Routine 10/19/2024 9:28 PM EDT ECG ADULT STAT 10/19/2024 6:45 PM EDT HEPATIC FUNCTION PANEL STAT Add-on 5:12 PM EDT PHOSPHORUS, PLASMA Timed 10/19/2024 5: 12 PM EDT MAGNESIUM, PLASMA Timed 10/19/2024 5:1 2 PM EDT BASIC METABOLIC PANEL, PLASMA Timed 10/19/2024 5:12 PM EDT US ABDOMEN FOCUSED REGION Routine 10/19/2024 4:42 PM EDT PROTEIN, URINE, 24 HOUR Routine 10/19/2024 2:43 PM EDT POTASSIUM, URINE, 24 HOUR Routine 10/19/2024 2:43 PM EDT SODIUM, URINE, 24 HOUR Routine 2:43 PM EDT PHOSPHORUS, 24 HR URINE Routine 10/19/2024 2:43 PM EDT MAGNESIUM, 24 HOUR URINE Routine 10/19/2024 2:43 PM EDT CREATININE, 24 HOUR URINE Routine 10/19/2024 2:43 PM EDT CHLORIDE, 24 HOUR URINE Routine 10/19/2024 2:43 PM EDT CALCIUM, 24 HOUR URINE Routine 2:43 PM EDT ALBUMIN-CREATININE RATIO, 24 HR URINE Routine 10/19/2024 2:43 PM EDT MAGNESIUM, PLASMA Add-On 10/19/2024 7:0 3 AM EDT PHOSPHORUS, PLASMA Add-On 10/19/2024 7: 03 AM EDT PHOSPHORUS, PLASMA Timed 10/19/2024 7: 03 AM EDT MAGNESIUM, PLASMA Timed 10/19/2024 7:0 [...] PANEL, PLASMA Timed 10/18/2024 6:30 PM EDT PHOSPHORUS, PLASMA Timed 10/18/2024 1: 47 PM EDT MAGNESIUM, PLASMA Timed 10/18/2024 1:4 7 PM EDT BASIC METABOLIC PANEL, PLASMA Timed 10/18/2024 1:47 PM EDT GROUP B STREPTOCOCCUS BY PCR [...] PANEL, PLASMA Timed 10/18/2024 3:38 AM EDT BILE ACIDS, TOTAL STAT 10/18/2024 1:1 2 AM EDT TROPONIN T, HIGH SENSITIVITY, 2 [...] W/O DIFFERENTIAL STAT 10/17/2024 10:41 PM EDT SARS COV-2/COVID-19 [...] Relevant to Health Maintenance Results * (ABNORMAL) Herpes Simplex Virus by PCR (Serum) (10/19/2024 9:28 PM EDT) Herpes Simplex Virus 1 (HSV-1) PCR Result Detected(AA) Not Detected 10/21/2024 11:30 AM EDT [facility] Comment:Previously prelim ve rified as Not Detected on 10/20/2024 at 1221 EDT. Herpes Simplex Virus 2 (HSV-2) PCR Result Not Detected Not Detected 10/21/2024 11:30 AM EDT [facility] Serum Venous blood specimen / Unknown 10/19/2024 9:28 PM EDT 10/19/2024 11:58 PM EDT Narrative [facility] - 10/21/2024 11:30 AM EDT This PCR assay was developed and its performance characteristics determined by [facility] as appropriate for clinical purposes. This assay has not been cleared or approved by the FDA, but is performed in a CLIA regulated laboratory that is qualified to perform high-complexity testing. This PCR assay was developed and its performance characteristics determined by [facility] as appropriate for clinical purposes. This assay has not been cleared or approved by the FDA, but is performed in a CLIA regulated laboratory that is qualified to perform high-complexity testing. This PCR assay was developed and its performance characteristics determined by [facility] as appropriate for clinical purposes. This assay has not been cleared or approved by the FDA, but is performed in a CLIA regulated laboratory that is qualified to perform high-complexity testing. us Hilton Montelongo MD LAB MICROBIOLOGY - GENERAL OR DERABLES Final Result [facility] [address] [place] [address] * Cytomegalovirus (CMV) Quantitative PCR (10/19/2024 9:28 PM EDT) Cytomegalovirus (CMV) Quantitative Interpretation Not Detected Not Detected 10/21/2024 12:44 PM EDT [facility] Blood Venous blood specimen / Unknown Venipuncture / Unknown 10/19/2024 9:28 PM EDT 10/19/2024 11:58 PM EDT Narrative [facility] - 10/21/2024 12:44 PM EDT The [employer] M2000 CMV test is a Real Time [...] ORDERABLES Final Re sult Performing Organization Address [facility] [place] [address] * Phosphorus, Plasma (10/19/2024 9:28 PM EDT) Only the most recent of11 resultswithin the time period is included. Pathologist [facility] Phosphorus, Plasma 2.5 2.5 - 4.5 mg/dL 10/19/2024 10:07 PM EDT [facility] Blood Venous blood specimen / Unknown Venipuncture / Unknown 10/19/2024 9:28 PM EDT 10/19/2024 9:38 PM EDT Santos Herrmann MD LAB BLOOD ORDERABLES Final Resu lt Performing Organization Address [facility] [place] [address] * (ABNORMAL) Magnesium (10/19/2024 9:28 PM EDT) Only the most recent of12 resultswithin the time period is included. Magnesium, Plasma 1.7(L) 1.9 - 2.4 mg/dL 10/19/2024 10:07 PM EDT [facility] Blood Venous blood specimen / Unknown Venipuncture / Unknown 10/19/2024 9:28 PM EDT 10/19/2024 9:38 PM EDT us Santos Herrmann MD LAB BLOOD ORDERABLES Final Resu lt Performing Organization Address [facility] de Phone Number [facility] [address] [place] [address] * (ABNORMAL) Basic metabolic panel (10/19/2024 9:28 PM EDT) Only the most recent of9 resultswithin the time period is included. Glucose, Plasma 78 74 - 99 mg/dL 10/19/2024 10:07 PM EDT [facility] BUN, Plasma 4(L) 7 - 21 mg/dL 10/19/2024 10:07 PM EDT [facility] Creatinine, Plasma 0.61 0.60 - 1.10 mg/dL 10/19/2024 10:07 PM EDT [facility] BUN/Creatinine Ratio 7 10/19/2024 10:07 PM EDT [facility] Sodium, Plasma 137 136 - 145 mmol/L 10/19/2024 10:07 PM EDT [facility] Potassium, Plasma 4.3 3.6 - 4.9 mmol/L 10/19/2024 10:07 PM EDT [facility] Chloride, Plasma 108(H) 97 - 107 mmol/L 10/19/2024 10:07 PM EDT [facility] CO2, Plasma 20(L) 22 - 29 mmol/L 10/19/2024 10:07 PM EDT [facility] Anion Gap 9 6 - 16 mmol/L 10/19/2024 10:07 PM EDT [facility] Total Calcium, Plasma 7.8(L) 8.9 - 10.2 mg/dL 10/19/2024 10:07 PM EDT [facility] eGFRcr 121.2 mL/min/1.7 3m*2 10/19/2024 10:07 PM EDT [facility] Comment:Reported eGFRcr in m L/min/1.73m2 is based the CKD-EPI 2020 equation that does not use a race coefficient. Blood Venous blood specimen / Unknown Venipuncture / Unknown 10/19/2024 9:28 PM EDT 10/19/2024 9:38 PM EDT us Santos Herrmann MD LAB BLOOD ORDERABLES Final Resu lt [facility] [address] [place] [address] * ECG Adult (10/19/2024 6:45 PM EDT) Only the most recent of5 resultswithin the time period is included. EKG DIAGNOSIS CLASS Normal MUSE ECG Ventricular Rate 82 BPM MUSE ECG Atrial Rate 82 BPM MUSE ECG CA Interval 138 ms MUSE ECG QRSD Interval 80 ms MUSE ECG QT Interval 360 ms MUSE ECG QTC Interval 420 ms MUSE ECG P [place] 46 degrees MUSE ECG R [place] 29 degrees MUSE ECG T Wave [place] 36 degrees MUSE ECG Diagnosis Normal sinus rhythm MUSE ECG Diagnosis Normal ECG MUSE ECG Diagnosis MUSE ECG Diagnosis Confirmed by Noel Osman ([id number]) on 10/20/2024 12:15:29 PM MUSE ECG 10/19/2024 6:45 PM EDT 10/20/2024 12:15 PM EDT us Hilton Montelongo MD ECG ORDERABLES Final Result [facility] ECG * (ABNORMAL) Hepatic function panel (10/19/2024 5:12 PM EDT) Direct Bilirubin, Plasma <0.2 <=0.3 mg/dL 10/19/2024 7:32 PM EDT [facility] Alkaline Phosphatase, Plasma 68 35 - 104 U/L 10/19/2024 7:32 PM EDT [facility] Total Bilirubin, Plasma 0.3 0.2 - 1.1 mg/dL 10/19/2024 7:32 PM EDT [facility] Albumin, Plasma 2.5(L) 3.5 - 5.2 g/dL 10/19/2024 7:32 PM EDT [facility] Total Protein 5.2(L) 6.3 - 7.9 g/dL 10/19/2024 7:32 PM EDT [facility] ALT, Plasma 48(H) 10 - 35 U/L 10/19/2024 7:32 PM EDT [facility] AST, Plasma 35 10 - 35 U/L 10/19/2024 7:32 PM EDT [facility] Blood Venous blood specimen / Unknown Venipuncture / Unknown 10/19/2024 5:12 PM EDT 10/19/2024 5:30 PM EDT us Hilton Montelongo MD LAB BLOOD ORDERABLES Final Re sult [facility] [address] [place] [address] * US Abdomen Focused Region Liver, GB, [...] IMG US PROCEDURES Final Resul t * Phosphorus, Urine, 24 Hour (10/19/2024 2:43 PM EDT) Phosphorus, Urine 29.1 mg/dL 10/19/2024 3:24 PM EDT [facility] Phosphorus per day, Urine 0.8 0.4 - 1.3 g/d 10/19/2024 3:24 PM EDT [facility] Hours Of Collection 24 HRS 10/19/2024 3:24 PM EDT [facility] Urine, Volume 2,750 mL 10/19/2024 3:24 PM EDT [facility] Urine Urine specimen obtained by clean catch procedure / Unknown Non-blood Collection / Unknown 10/19/2024 2:43 PM EDT 10/19/2024 2:53 PM EDT us Santos Herrmann MD LAB URINE ORDERABLES Final Resu lt [facility] [address] [place] [address] * Albumin-creatinine ratio, 24 hr urine (10/19/2024 2:43 PM EDT) Microalbumin, Urine <1.2 <1.9 mg/dL 10/19/2024 3:39 PM EDT [facility] Albumin per day 3:39 PM EDT [facility] Comment:Unable to calculate, at least one value is above or below the detection limit. Microalbumin Excretion Rate 10/19/2024 3:39 PM EDT [facility] Comment:Unable to calculate, at least one value is above or below the detection limit. Creatinine, Urine 30 mg/dL 025 3:39 PM EDT [facility] Creatinine, 24H Ur 825 500 - 1,600 mg/d 10/19/2024 3:39 PM EDT [facility] Comment:Unable to calculate, at least one value is above or below the detection limit. Albumin/Creatinin e Ratio 10/19/2024 3:39 PM EDT [facility] Comment:Unable to calculate, at least one value is above or below the detection limit. Hours Of Collection 24 HRS 10/19/2024 3:39 PM EDT [facility] Urine, Volume 2,750 mL 10/19/2024 3:39 PM EDT [facility] Urine Urine specimen obtained by clean catch procedure / Unknown Non-blood Collection / Unknown 10/19/2024 2:43 PM EDT 10/19/2024 2:52 PM EDT us Santos Herrmann MD LAB URINE ORDERABLES Final Resu lt Performing Organization Address [facility]/ZIP Co de Phone Number [facility] [address] [place] [address] * Calcium, 24 Hour Urine (10/19/2024 2:43 PM EDT) Calcium, Urine 3.1 mg/dL 10/19/2024 3:24 PM EDT [facility] Calcium per day, Urine 85 mg/day 10/19/2024 3:24 PM EDT [facility] Hours Of Collection 24 HRS 10/19/2024 3:24 PM EDT [facility] Urine, Volume 2,750 mL 10/19/2024 3:24 PM EDT [facility] Urine Urine specimen obtained by clean catch procedure / Unknown Non-blood Collection / Unknown 10/19/2024 2:43 PM EDT 10/19/2024 2:53 PM EDT Narrative [facility] - 10/19/2024 3:24 PM EDT Free Ca diet 5 - 40 mg/d Low to average Ca diet 50 - 150 mg/d Average Ca diet 100 - 300 mg/d Santos Herrmann MD LAB URINE ORDERABLES Final Resu lt Performing Organization Address [facility]/ZIP Co de Phone Number [facility] [address] [place] [address] * Creatinine, 24 Hour Urine (10/19/2024 2:43 PM EDT) Creatinine, Urine 30 mg/dL 10/19/2024 3:39 PM EDT [facility] Creatinine per day, Urine 825 500 - 1,600 mg/d 10/19/2024 3:39 PM EDT [facility] Hours Of Collection 24 HRS 10/19/2024 3:39 PM EDT [facility] Urine, Volume 2,750 mL 10/19/2024 3:39 PM EDT [facility] Urine Urine specimen obtained by clean catch procedure / Unknown Non-blood Collection / Unknown 10/19/2024 2:43 PM EDT 10/19/2024 2:52 PM EDT us Santos Herrmann MD LAB URINE ORDERABLES Final Resu lt Performing Organization Address [facility] de Phone Number [facility] [address] [place] [address] * Sodium, 24 Hour, Urine (10/19/2024 2:43 PM EDT) Sodium, Urine 45 mmol/L 10/19/2024 3:39 PM EDT [facility] Sodium per day 124 48 - 168 mmol/d 10/19/2024 3:39 PM EDT [facility] Hours Of Collection 24 HRS 10/19/2024 3:39 PM EDT [facility] Urine, Volume 2,750 mL 10/19/2024 3:39 PM EDT [facility] Urine Urine specimen obtained by clean catch procedure / Unknown Non-blood Collection / Unknown 10/19/2024 2:43 PM EDT 10/19/2024 2:52 PM EDT us Santos Herrmann MD LAB URINE ORDERABLES Final Resu lt Performing Organization Address [facility] de Phone Number [facility] [address] [place] [address] * Total Protein, 24 Hour Urine (10/19/2024 2:43 PM EDT) Protein, Urine <6 mg/dL 10/19/2024 3:39 PM EDT [facility] Total Protein per day 10/19/2024 3:39 PM EDT [facility] Comment:Unable to calculate, at least one value is above or below the detection limit. Hours Of Collection 24 HRS 10/19/2024 3:39 PM EDT [facility] Urine, Volume 2,750 mL 10/19/2024 3:39 PM EDT [facility] Urine Urine specimen obtained by clean catch procedure / Unknown Non-blood Collection / Unknown 10/19/2024 2:43 PM EDT 10/19/2024 2:52 PM EDT Narrative [facility] - 10/19/2024 3:39 PM EDT Reference Range <80 mg/day if bed rest <150 mg/day if ambulatory Santos Herrmann MD LAB URINE ORDERABLES Final Resu lt Performing Organization Address [facility]/ZIP Co de Phone Number [facility] [address] [place] [id number] * Potassium, Urine, 24 Hour (10/19/2024 2:43 PM EDT) Potassium, Urine 20 mmol/L 10/19/2024 3:39 PM EDT [facility] Hours Of Collection 24 HRS 10/19/2024 3:39 PM EDT [facility] Urine, Volume 2,750 mL 10/19/2024 3:39 PM EDT [facility] Potassium per day, Urine 55 18 - 58 mmol/d 10/19/2024 3:39 PM EDT [facility] Urine Urine specimen obtained by clean catch procedure / Unknown Non-blood Collection / Unknown 10/19/2024 2:43 PM EDT 10/19/2024 2:52 PM EDT Santos Herrmann MD LAB URINE ORDERABLES Final Resu lt Performing Organization Address [facility] Co de Phone Number [facility] [address] [place] [address] * (ABNORMAL) Magnesium, urine, 24 hour (10/19/2024 2:43 PM EDT) Magnesium, Random Urine 24.3 mg/dL 10/19/2024 3:24 PM EDT [facility] Magnesium per day 668.3(H) 70.0 - 120.0 mg/d 10/19/2024 3:24 PM EDT [facility] Hours Of Collection 24 HRS 10/19/2024 3:24 PM EDT [facility] Urine, Volume 2,750 mL 10/19/2024 3:24 PM EDT [facility] Urine Urine specimen obtained by clean catch procedure / Unknown Non-blood Collection / Unknown 10/19/2024 2:43 PM EDT 10/19/2024 2:53 PM EDT Santos Herrmann MD LAB URINE ORDERABLES Final Resu lt Performing Organization Address City/[facility]/ZIP Co de Phone Number [facility] [address] [place] [address] * Chloride, 24 Hour Urine (10/19/2024 2:43 PM EDT) Chloride, Urine <20 mmol/L 3:39 PM EDT [facility] Hours Of Collection 24 HRS 10/19/2024 3:39 PM EDT [facility] Urine, Volume 2,750 mL 10/19/2024 3:39 PM EDT [facility] Chloride per day, Urine 10/19/2024 3:39 PM EDT [facility] Comment:Unable to calculate, at least one value is above or below the detection limit. Urine Urine specimen obtained by clean catch procedure / Unknown Non-blood Collection / Unknown 10/19/2024 2:43 PM EDT 10/19/2024 2:52 PM EDT Santos Herrmann MD LAB URINE ORDERABLES Final Resu lt Performing Organization Address City/[facility]/ZIP Co de Phone Number [facility] [address] [place] [address] * (ABNORMAL) Aldosterone (10/18/2024 10:56 PM EDT) Aldosterone 115.0(H) 4.0 - 31.0 ng/dL 10/21/2024 8:21 AM EDT [facility] Blood Venous blood specimen / Unknown Venipuncture / Unknown 10/18/2024 10:56 PM EDT 10/18/2024 11:29 PM EDT Santos Herrmann MD LAB BLOOD ORDERABLES Final Resu lt Performing Organization Address City/[facility]/ZIP Co de Phone Number [facility] [address] [place] [address] * Group B Streptococcus by PCR (10/18/2024 1:47 PM EDT) Group B Streptococcus PCR Result Not Detected Not Detected 10/20/2024 7:26 AM EDT [facility] Swab Rectovaginal / Unknown Non-blood Collection / Unknown 10/18/2024 1:47 PM EDT 10/18/2024 1:59 PM EDT Narrative [facility] - 10/20/2024 7:26 AM EDT [...] OR DERABLES Final Result Performing Organization Address City/[facility]/ZIP Co de Phone Number [facility] [address] [place] [address] * ECHO, ADULT TRANSTHORACIC COMPLETE (10/18/2024 11:40 [...] Root Diam 31 mm RILEY ISCV PA CA(ACCEL) 28.2 mmHg RILEY ISCV LVLs ap2 6.7 [...] is no recent study available for direct [id number] comparison. Patient is 33 wks 5 days [...] is no recent study available for direct [id number] comparison. us Hilton Montelongo MD CV ECHO PROCEDURES Final Resu lt * POCT glucose meter (10/18/2024 9:42 AM EDT) Pathologist [facility] POCT Glucose 78 74 - 99 mg/dL 10/18/2024 9:52 AM EDT [facility] Comment:Accuracy of a glucos e result [...] Comment 10/18/2024 9:52 AM EDT [facility] Dining Room Host/Hostess ID Tex Harman 025 9:52 AM EDT [facility] Device ID [id number] 10/18/2024 9:52 AM EDT [facility] Specimen Type POC Capillary 10/18/2024 9:52 AM EDT [facility] Blood Capillary blood specimen / Unknown 10/18/2024 9:42 AM EDT 10/18/2024 9:52 AM EDT us Hilton Montelongo MD LAB POINT OF CARE TE ST DOCKED DEVICE UNSOLICITED RESULTS Final Result Performing Organization Address City/[facility]/ZIP Co de Phone Number [facility] [address] [place] [address] * Light Green Top (10/18/2024 9:14 AM EDT) Extra Hold for add-ons 10/18/2024 12:[address] [facility] Comment:Auto resulted. Blood Venous blood specimen / Unknown 10/18/2024 9:14 AM EDT 10/18/2024 9:27 AM EDT us Hilton Montelongo MD LAB BLOOD ORDERABLES Final Re sult [facility] [address] [place] [address] * OB US Biophysical Profile wo Non Stress Testing (10/18/2024 8:50 AM EDT) Anatomical Region Laterality Modality Body Ultrasound 10/18/2024 8:28 AM EDT Impressions 10/18/2024 9:40 AM EDT The OB Ultrasound you requested has been resulted. Please navigate to the Imaging tab in Jumblets for review. This message has been generated by the interface. Narrative Procedure Note Dilip Gipson MD - 10/18/2024 IMPRESSION: The OB Ultrasound you requested has been resulted. Please navigate to theImaging tab in Jumblets for review. This message has been generated by [employer]. Hilton Montelongo MD IMG OB US PROCEDURES Final Re sult * Protein, Random, Urine with Creatinine (10/18/2024 4:03 AM EDT) Only the most recent of2 resultswithin the time period is included. Protein, Urine 10 mg/dL 10/18/2024 4:44 AM EDT [facility] Creatinine, Urine 62 mg/dL 10/18/2024 4:44 AM EDT [facility] Protein/Creatin ine Ratio 0.2 mg/mg Creat 10/18/2024 4:44 AM EDT [facility] Urine Urine specimen obtained by clean catch procedure / Unknown Non-blood Collection / Unknown 10/18/2024 4:03 AM EDT 10/18/2024 4:11 AM EDT Result [facility] Hilton Montelongo MD LAB URINE ORDERABLES Final Re sult Performing Organization Address City/[facility]/ZIP Co de Phone Number [facility] [address] [place] [address] * (ABNORMAL) Ionized calcium, whole blood (10/18/2024 3:38 AM EDT) [facility] Ionized Calcium, Whole Blood 4.3(L) 4.6 - 5.1 mg/dL LAB HEMATOLOGY METHOD 10/18/2024 5:42 AM EDT [facility] Blood Venous blood specimen / Unknown Venipuncture / Unknown 10/18/2024 3:38 AM EDT 10/18/2024 3:48 AM EDT Result [facility] Hilton Montelongo MD LAB BLOOD ORDERABLES Final Re sult Performing Organization Address City/[facility]/ZIP Co de Phone Number [facility] [address] [place] [address] * (ABNORMAL) Blood gas panel, venous (10/18/2024 3:38 AM EDT) Only the most recent of2 resultswithin the time period is included. pH, Venous 7.47(H) 7.32 - 7.43 LAB HEMATOLOGY METHOD 10/18/2024 3:50 AM EDT [facility] pCO2, Venous 44 37 - 52 mmHg LAB HEMATOLOGY METHOD 10/18/2024 3:50 AM EDT [facility] pO2, Venous 115(H) 25 - 40 mmHg LAB HEMATOLOGY METHOD 10/18/2024 3:50 AM EDT [facility] SO2, Measured, Venous 100(H) 65 - 80 % LAB HEMATOLOGY METHOD 10/18/2024 3:50 AM EDT [facility] Base Excess, Venous 7.1(H) -2.0 - 3.0 mmol/L LAB HEMATOLOGY METHOD 10/18/2024 3:50 AM EDT [facility] Bicarbonate, Calculated, Venous 32(H) 22 - 26 mmol/L LAB HEMATOLOGY METHOD 10/18/2024 3:50 AM EDT [facility] Hematocrit, Whole Blood 27.5(L) 34.0 - 45.0 % LAB HEMATOLOGY METHOD 10/18/2024 3:50 AM EDT [facility] Sodium, Whole Blood 133(L) 136 - 145 mmol/L LAB HEMATOLOGY METHOD 10/18/2024 3:50 AM EDT [facility] Potassium, Whole Blood 2.8(L) 3.6 - 4.9 mmol/L LAB HEMATOLOGY METHOD 10/18/2024 3:50 AM EDT [facility] Chloride, Whole Blood 91(L) 97 - 107 mmol/L LAB HEMATOLOGY METHOD 10/18/2024 3:50 AM EDT [facility] Glucose, Whole Blood 72(L) 74 - 99 mg/dL LAB HEMATOLOGY METHOD 10/18/2024 3:50 AM EDT [facility] Lactate, Venous, Whole Blood 0.7 0.5 - 2.2 mmol/L LAB HEMATOLOGY METHOD 10/18/2024 3:50 AM EDT [facility] Ionized Calcium, Whole Blood 4.3(L) 4.6 - 5.1 mg/dL LAB HEMATOLOGY METHOD 10/18/2024 3:50 AM EDT [facility] Blood Venous blood specimen / Unknown Venipuncture / Unknown 10/18/2024 3:38 AM EDT 10/18/2024 3:48 AM EDT Hilton Montelongo MD LAB BLOOD ORDERABLES Final Re sult [facility] [address] [place] [address] * Troponin T, High Sensitivity, 2 Hour, Plasma (10/18/2024 1:12 AM EDT) Only the most recent of2 resultswithin the time period is included. Troponin T, High Sensitivity, 2 Hour <6 <14 ng/L 10/18/2024 1:[address] [facility] Blood Venous blood specimen / Unknown Venipuncture / Unknown 10/18/2024 1:12 AM EDT 10/18/2024 1:18 AM EDT Hilton Montelongo MD LAB BLOOD ORDERABLES Final Re sult Performing Organization Address [facility] [place] [place] [address] * Bile acids, total (10/18/2024 1:12 AM EDT) BILE ACIDS, TOTAL 5 0 - 10 umol/L 10/20/2024 12:29 AM EDT [facility] ([facility]) Blood Venous blood specimen / Unknown Venipuncture / Unknown 10/18/2024 1:12 AM EDT 10/18/2024 1:18 AM EDT Narrative [facility] - 10/20/2024 12:29 AM EDT INTERPRETIVE INFORMATION: Bile Acids, Total Reference Interval applies to fasting specimens. Performed By: [employer] [address] [place] [address] Remediation Consultant: Brandon Bell MD, PhD CLIA Number: [id number] Hilton Montelongo MD LAB BLOOD ORDERABLES Final Re sult Performing Organization Address City/[facility]/ZIP Co de Phone Number [facility] ([place]) [address] [phone] * Group A Streptococcus by PCR (10/17/2024 11:25 PM EDT) [facility] Group A Streptococcus PCR Result Not Detected Not Detected 10/18/2024 12:38 AM EDT [facility] Swab Structure of peritonsillar tissue / Unknown Non-blood Collection / Unknown 10/17/2024 11:25 PM EDT 10/17/2024 11:49 PM EDT Hilton Montelongo MD LAB MICROBIOLOGY - GENERAL OR DERABLES Final Result Performing Organization Address [facility]/ZIP Co de Phone Number [facility] [address] [place] [address] * Troponin T, High Sensitivity, 0 Hour Plasma, Reflex to 2 Hour (10/17/2024 10:41 PM EDT) Only the most recent of2 resultswithin the time period is included. [facility] Troponin T, High Sensitivity, 0 Hour <6 <14 ng/L 10/17/2024 11:16 PM EDT [facility] Blood Venous blood specimen / Unknown Venipuncture / Unknown 10/17/2024 10:41 PM EDT 10/17/2024 10:45 PM EDT Hilton Montelongo MD LAB BLOOD ORDERABLES Final Re sult Performing Organization Address City/[facility]/ZIP Co de Phone Number [facility] [address] [place] [address] * (ABNORMAL) CBC (10/17/2024 10:41 PM EDT) [facility] WBC Count 10.63(H) 3.70 - 10.30 10*3/uL LAB HEMATOLOGY METHOD 10/17/2024 10:53 PM EDT [facility] RBC Count 3.27(L) 3.90 - 5.20 10*6/uL LAB HEMATOLOGY METHOD 10/17/2024 10:53 PM EDT [facility] HGB 9.7(L) 11.2 - 15.7 g/dL LAB HEMATOLOGY METHOD 10/17/2024 10:53 PM EDT [facility] HCT 28.7(L) 34.0 - 45.0 % LAB HEMATOLOGY METHOD 10/17/2024 10:53 PM EDT [facility] Platelet Count 185 155 - 369 10*3/uL LAB HEMATOLOGY METHOD 10/17/2024 10:53 PM EDT [facility] MCV 88 79 - 98 fL LAB HEMATOLOGY METHOD 10/17/2024 10:53 PM EDT [facility] MCH 29.7 26.0 - 32.0 pg LAB HEMATOLOGY METHOD 10/17/2024 10:53 PM EDT [facility] MCHC 33.8 30.7 - 35.5 g/dL LAB HEMATOLOGY METHOD 10/17/2024 10:53 PM EDT [facility] RDW 15.8(H) 11.5 - 14.5 % LAB HEMATOLOGY METHOD 10/17/2024 10:53 PM EDT [facility] MPV 12.3 8.8 - 12.5 fL LAB HEMATOLOGY METHOD 10/17/2024 10:53 PM EDT [facility] nRBC 0.0 <=0.0 per 100 WBCs LAB HEMATOLOGY METHOD 10/17/2024 10:53 PM EDT [facility] Blood Venous blood specimen / Unknown Venipuncture / Unknown 10/17/2024 10:41 PM EDT 10/17/2024 10:45 PM EDT us Hilton Montelongo MD LAB BLOOD ORDERABLES Final Re sult [facility] [address] [place] [address] * (ABNORMAL) Comprehensive metabolic panel (10/17/2024 10:41 PM EDT) Only the most recent of2 resultswithin the time period is included. Glucose, Plasma 77 74 - 99 mg/dL 10/17/2024 11:16 PM EDT [facility] BUN, Plasma 9 7 - 21 mg/dL 10/17/2024 11:16 PM EDT [facility] Creatinine, Plasma 0.70 0.60 - 1.10 mg/dL 10/17/2024 11:16 PM EDT [facility] BUN/Creatinine Ratio 13 10/17/2024 11:16 PM EDT [facility] Sodium, Plasma 132(L) 136 - 145 mmol/L 10/17/2024 11:16 PM EDT [facility] Potassium, Plasma 2.5(LL) 3.6 - 4.9 mmol/L 10/17/2024 11:16 PM EDT [facility] Chloride, Plasma 88(L) 97 - 107 mmol/L 10/17/2024 11:16 PM EDT [facility] CO2, Plasma 27 22 - 29 mmol/L 10/17/2024 11:16 PM EDT [facility] Anion Gap 17(H) 6 - 16 mmol/L 10/17/2024 11:16 PM EDT [facility] Total Calcium, Plasma 8.4(L) 8.9 - 10.2 mg/dL 10/17/2024 11:16 PM EDT [facility] Total Protein 5.8(L) 6.3 - 7.9 g/dL 10/17/2024 11:16 PM EDT [facility] Albumin, Plasma 3.0(L) 3.5 - 5.2 g/dL 10/17/2024 11:16 PM EDT [facility] AST, Plasma 69(H) 10 - 35 U/L 10/17/2024 11:16 PM EDT [facility] ALT, Plasma 76(H) 10 - 35 U/L 10/17/2024 11:16 PM EDT [facility] Alkaline Phosphatase, Plasma 76 35 - 104 U/L 10/17/2024 11:16 PM EDT [facility] Total Bilirubin, Plasma 0.7 0.2 - 1.1 mg/dL 10/17/2024 11:16 PM EDT [facility] eGFRcr 117.3 mL/min/1.7 3m*2 10/17/2024 11:16 PM EDT [facility] Comment:Reported eGFRcr in m L/min/1.73m2 is based the CKD-EPI 2020 equation that does not use a race coefficient. Blood Venous blood specimen / Unknown Venipuncture / Unknown 10/17/2024 10:41 PM EDT 10/17/2024 10:45 PM EDT Hilton Montelongo MD LAB BLOOD ORDERABLES Final Re sult Performing Organization Address [facility] Co de Phone Number [facility] [address] [place] [address] * SARS CoV-2/COVID-19 by PCR (10/17/2024 8:50 PM EDT) Pathologist [facility] SARS CoV-2/COVID-1 9 RNA PCR Result Not Detected Not Detected 10/19/2024 1:[address] [facility] Swab Nasopharyngeal structure / Unknown Non-blood Collection / Unknown 10/17/2024 8:50 PM EDT 10/17/2024 9:28 PM EDT Narrative [facility] - 10/19/2024 1:56 AM EDT [...] OR DERABLES Final Result Performing Organization Address [facility] Co de Phone Number [facility] [address] [place] [address] * Nasopharyngeal Respiratory Panel (10/17/2024 8:50 PM EDT) [facility] Nasopharyngeal Respiratory PCR Interpretation Not Detected for all analytes Not Detected for all analytes 10/17/2024 11:23 PM EDT [facility] Swab Nasopharyngeal structure / Unknown Non-blood Collection / Unknown 10/17/2024 8:50 PM EDT 10/17/2024 9:28 PM EDT Narrative [facility] - 10/17/2024 11:23 PM EDT [...] Respiratory PCR Panel is performed using the [employer] instrument. This test is FDA approved for [...] OR DERABLES Final Result Performing Organization Address City/[facility]/ZIP Co de Phone Number [facility] [address] [place] [address] * Treponema Pallidum (Syphilis) Antibodies with Reflex to RPR and RPR Titer (Those with NO known Syphilis) (10/17/2024 7:31 PM EDT) Syphilis Antibody (IgG+IgM) Nonreactive Nonreactive 10/17/2024 10:00 PM EDT [facility] Comment:Nonreactive. No sero logic evidence of syphilis. No follow-up necessary unless clinically indicated (e.g., early syphilis). Blood Venous blood specimen / Unknown Venipuncture / Unknown 10/17/2024 7:31 PM EDT 10/17/2024 7:44 PM EDT us Hilton Montelongo MD LAB BLOOD ORDERABLES Final Re sult Performing Organization Address City/[facility]/ZIP Co de Phone Number [facility] [address] [place] [address] * Type and Screen (10/17/2024 7:31 PM [...] ORDERABLE S Final Result BLOOD BANK [address] [place] [address], * XR Chest 1 View (10/17/2024 4:38 [...] LAB COAGULATION METHOD 10/17/2024 4:47 PM EDT [facility] Blood Venous blood specimen / Unknown Venipuncture / Unknown 10/17/2024 4:05 PM EDT 10/17/2024 4:19 PM EDT Narrative [facility] - 10/17/2024 4:47 PM EDT [...] BLOOD ORDERABLES Final Result Performing Organization Address City/[facility] Co de Phone Number [facility] [address] [place] [address] * N-Terminal Probnp (10/17/2024 4:05 PM EDT) N-Terminal, PROBNP, Plasma 125 0 - 449 pg/mL 10/17/2024 5:07 PM EDT [facility] Blood Venous blood specimen / Unknown Venipuncture / Unknown 10/17/2024 4:05 PM EDT 10/17/2024 4:20 PM EDT Job Devine APRN, CNM LAB BLOOD ORDERABLES Final Result [facility] [address] [place] [address] * (ABNORMAL) CBC and Differential (10/17/2024 4:05 PM EDT) WBC Count 9.54 3.70 - 10.30 10*3/uL LAB HEMATOLOGY METHOD 10/17/2024 4:41 PM EDT [facility] RBC Count 3.40(L) 3.90 - 5.20 10*6/uL LAB HEMATOLOGY METHOD 10/17/2024 4:41 PM EDT [facility] HGB 10.2(L) 11.2 - 15.7 g/dL LAB HEMATOLOGY METHOD 10/17/2024 4:41 PM EDT [facility] HCT 29.7(L) 34.0 - 45.0 % LAB HEMATOLOGY METHOD 10/17/2024 4:41 PM EDT [facility] Platelet Count 177 155 - 369 10*3/uL LAB HEMATOLOGY METHOD 10/17/2024 4:41 PM EDT [facility] MCV 87 79 - 98 fL LAB HEMATOLOGY METHOD 10/17/2024 4:41 PM EDT [facility] MCH 30.0 26.0 - 32.0 pg LAB HEMATOLOGY METHOD 10/17/2024 4:41 PM EDT [facility] MCHC 34.3 30.7 - 35.5 g/dL LAB HEMATOLOGY METHOD 10/17/2024 4:41 PM EDT [facility] RDW 15.9(H) 11.5 - 14.5 % LAB HEMATOLOGY METHOD 10/17/2024 4:41 PM EDT [facility] MPV 12.1 8.8 - 12.5 fL LAB HEMATOLOGY METHOD 10/17/2024 4:41 PM EDT [facility] nRBC 0.0 <=0.0 per 100 WBCs LAB HEMATOLOGY METHOD 10/17/2024 4:41 PM EDT [facility] Differential Type Automated LAB HEMATOLOGY METHOD 10/17/2024 4:41 PM EDT [facility] Neutrophils % 63 % LAB HEMATOLOGY METHOD 10/17/2024 4:41 PM EDT [facility] Lymphocytes % 24 % LAB HEMATOLOGY METHOD 10/17/2024 4:41 PM EDT [facility] Monocytes % 11 % LAB HEMATOLOGY METHOD 10/17/2024 4:41 PM EDT [facility] Eosinophils % 1 % LAB HEMATOLOGY METHOD 10/17/2024 4:41 PM EDT [facility] Basophils % 0 % LAB HEMATOLOGY METHOD 10/17/2024 4:41 PM EDT [facility] Immature Granulocytes % 1 % LAB HEMATOLOGY METHOD 10/17/2024 4:41 PM EDT [facility] Neutrophils Absolute 6.06 1.60 - 6.10 10*3/uL LAB HEMATOLOGY METHOD 10/17/2024 4:41 PM EDT [facility] Lymphocytes Absolute 2.31 1.20 - 3.90 10*3/uL LAB HEMATOLOGY METHOD 10/17/2024 4:41 PM EDT [facility] Monocytes Absolute 1.05(H) 0.30 - 0.90 10*3/uL LAB HEMATOLOGY METHOD 10/17/2024 4:41 PM EDT [facility] Eosinophils Absolute 0.06 0.00 - 0.50 10*3/uL LAB HEMATOLOGY METHOD 10/17/2024 4:41 PM EDT [facility] Basophils Absolute 0.01 0.00 - 0.10 10*3/uL LAB HEMATOLOGY METHOD 10/17/2024 4:41 PM EDT [facility] Immature Granulocytes Absolute 0.05 0.00 - 0.06 10*3/uL LAB HEMATOLOGY METHOD 10/17/2024 4:41 PM EDT [facility] Blood Venous blood specimen / Unknown Venipuncture / Unknown 10/17/2024 4:05 PM EDT 10/17/2024 4:24 PM EDT Narrative [facility] - 10/17/2024 4:41 PM EDT Therapeutic decision making should be based on absolute values, rather than percentages. Job Devine MANAGER POST, CNM LAB BLOOD ORDERABLES Final Result [facility] [address] [place] [address] * (ABNORMAL) Uric acid (10/17/2024 4:05 PM EDT) Uric Acid, Plasma 10.1(H) 3.1 - 7.1 mg/dL 10/17/2024 9:51 PM EDT [facility] Blood Venous blood specimen / Unknown Venipuncture / Unknown 10/17/2024 4:05 PM EDT 10/17/2024 4:20 PM EDT us Hilton Montelongo MD LAB BLOOD ORDERABLES Final Re sult Performing Organization Address [facility] Co de Phone Number [facility] [address] [place] [address] * (ABNORMAL) Lactate dehydrogenase (10/17/2024 4:05 PM EDT) LDH, Plasma 267(H) 116 - 250 U/L 10/17/2024 9:51 PM EDT [facility] Comment:Hemolyzed, result ma y be falsely increased. Blood Venous blood specimen / Unknown Venipuncture / Unknown 10/17/2024 4:05 PM EDT 10/17/2024 4:20 PM EDT Result [facility] us Hilton Montelongo MD LAB BLOOD ORDERABLES Final Re sult Performing Organization Address [facility] de Phone Number [facility] [address] [place] [address] * OB US Detail Anatomy (10/17/2024 1:34 PM EDT) Anatomical Region Laterality Modality Body Ultrasound 10/17/2024 11:2 0 AM EDT Impressions 10/17/2024 2:52 PM EDT The OB Ultrasound you requested has been resulted. Please navigate to the Imaging tab in [employer] for review. This message has been generated by the interface. Narrative Procedure Note Melonie Wheeler MD - 10/17/2024 IMPRESSION: The OB Ultrasound you requested has been resulted. Please navigate to theImaging tab in [employer] for review. This message has been generated [...] Urine Negative Negative Test Strip Lot Number [id number] Test Strip Lot Expiration 07/2025 Urine Urine specimen obtained by clean catch procedure / Unknown 10/17/2024 9:14 AM EDT Dilip Gipson MD POINT OF CARE TEST ENTER/ EDIT ORDERABLES Final Result * Chloride, urine, random (09/26/2024 10:07 AM EDT) Chloride, Urine 25 mmol/L 2:03 PM EDT [facility] Urine Urine specimen obtained by clean catch procedure / Unknown Non-blood Collection / Unknown 09/26/2024 10:07 AM EDT 09/26/2024 10:07 AM EDT Bill Patrick MD LAB URINE ORDERABLES Final Resul t [facility] [address] [place] [address] * Sodium, urine, random (09/26/2024 10:02 AM EDT) Sodium, Urine 110 mmol/L 09/26/2024 11:55 AM EDT [facility] Urine Urine specimen obtained by clean catch procedure / Unknown Non-blood Collection / Unknown 09/26/2024 10:02 AM EDT 09/26/2024 10:02 AM EDT us Bill Patrick MD LAB URINE ORDERABLES Final Resul t Performing Organization Address City/[facility] Co de Phone Number [facility] [address] [place] [address] * Potassium, urine, random (09/26/2024 10:02 AM EDT) Potassium, Urine 43 mmol/L 09/26/2024 11:55 AM EDT [facility] Urine Urine specimen obtained by clean catch procedure / Unknown Non-blood Collection / Unknown 09/26/2024 10:02 AM EDT 09/26/2024 10:02 AM EDT us Bill Patrick MD LAB URINE ORDERABLES Final Resul t Performing Organization Address [facility] Co de Phone Number [facility] [address] [place] [address] * Osmolality, urine (09/26/2024 10:02 AM EDT) Osmolality, Urine 404 50 - 1,200 mOsm/kg 09/26/2024 1:48 PM EDT [facility] Urine Urine specimen obtained by clean catch procedure / Unknown Non-blood Collection / Unknown 09/26/2024 10:02 AM EDT 09/26/2024 10:02 AM EDT us Bill Patrick MD LAB URINE ORDERABLES Final Resul t Performing Organization Address City/[facility] Co de Phone Number [facility] [address] [place] [address] * SSA 52 and 60 (Ro) (YRAA) Antibodies, IgG (09/26/2024 9:32 AM EDT) SSA-52 (RO52) (YARA) Antibody, IgG 2 0 - 40 AU/mL 09/28/2024 5:47 PM EDT [facility] (TER[facility]) SSA-60 (RO60) (YARA) Antibody, IgG 0 0 - 40 AU/mL 09/28/2024 5:47 PM EDT [facility] (TER[facility]) Serum 09/26/2024 9:32 AM EDT 09/26/2024 9:32 AM EDT Narrative [facility] ([facility]) - 09/28/2024 5:47 PM EDT [...] AU/mL or Greater .......... Positive Performed By: [employer] [address] [phone] Remediation Consultant: Brandon Bell MD, PhD CLIA Number: [id number] Bill Patrick MD LAB REF LAB BLOOD AND FLUID ORD Final Result [facility] [employer] [facility]) [address] [place] [address] * SSB (LA) (YARA) ANTIBODY, IGG (09/26/2024 9:32 AM EDT) SSB (LA) (YARA) Antibody, IgG 0 0 - 40 AU/mL 09/28/2024 5:[address] [facility] (TERRI) Serum Venous blood specimen / Unknown 09/26/2024 9:32 AM EDT 09/26/2024 9:32 AM EDT Narrative [facility] [employer]) - 09/28/2024 5:47 PM EDT INTERPRETIVE INFORMATION: [...] (PSS) also have this antibody. Performed By: [employer] [address] [place] [address] Remediation Consultant: Brandon Bell MD, PhD CLIA Number: [id number] Bill Patrick MD LAB BLOOD ORDERABLES Final Resul t [facility] [employer] [address] [place] [address] * Rheumatoid factor, plasma (09/26/2024 9:32 AM EDT) Rheumatoid Factor, Plasma <10 <14 IU/mL 09/26/2024 1:49 PM EDT [facility] Blood Venous blood specimen / Unknown Venipuncture / Unknown 09/26/2024 9:32 AM EDT 09/26/2024 9:32 AM EDT Bill Patrick MD LAB BLOOD ORDERABLES Final Resul t [facility] [address] [place] [address] * Antinuclear Antibody (JEFFERY), HEp-2, IgG (09/26/2024 9:32 AM EDT) JEFFERY INTERPRETIVE COMMENT See Note 09/28/2024 5:13 PM EDT [facility] [employer] ([facility]) Anti Nuc Ab Screen <1:80 <1:80 09/28/2024 5:13 PM EDT [facility] ([facility]) Blood Venous blood specimen / Unknown Venipuncture / Unknown 09/26/2024 9:32 AM EDT 09/26/2024 9:32 AM EDT Narrative ANUJA JULIEN SORENSEN) - 09/28/2024 5:13 PM EDT [...] rings, and cytoplasmic speckled patterns. Performed By: [employer] [address] [place] [address] Remediation Consultant: Brandon Bell MD, PhD CLIA Number: [id number] us Bill Patrick MD LAB BLOOD ORDERABLES Final Resul t [facility] JULIEN SORENSEN) [address] [place] [address] * (ABNORMAL) Osmolality (09/26/2024 9:32 AM EDT) Osmolality, Serum 273(L) 275 - 295 mOsm/Kg 09/26/2024 2:10 PM EDT [facility] Blood Venous blood specimen / Unknown Venipuncture / Unknown 09/26/2024 9:32 AM EDT 09/26/2024 9:32 AM EDT Bill Patrick MD LAB BLOOD ORDERABLES Final Resul t [facility] [address] [place] [address] * (ABNORMAL) Renal function panel (09/26/2024 9:32 AM EDT) Glucose, Plasma 87 74 - 99 mg/dL 09/26/2024 12:24 PM [facility]T [facility] BUN, Plasma 5(L) 7 - 21 mg/dL 09/26/2024 12:24 PM EDT [facility] Creatinine, Plasma 0.72 0.60 - 1.10 mg/dL 09/26/2024 12:24 PM EDT [facility] BUN/Creatinine Ratio 7 09/26/2024 12:24 PM EDT [facility] Sodium, Plasma 135(L) 136 - 145 mmol/L 09/26/2024 12:24 PM EDT [facility] Potassium, Plasma 3.1(L) 3.6 - 4.9 mmol/L 09/26/2024 12:24 PM EDT [facility] Chloride, Plasma 95(L) 97 - 107 mmol/L 09/26/2024 12:24 PM EDT [facility] CO2, Plasma 26 22 - 29 mmol/L 09/26/2024 12:24 PM EDT [facility] Anion Gap 14 6 - 16 mmol/L 09/26/2024 12:24 PM EDT [facility] Total Calcium, Plasma 9.4 8.9 - 10.2 mg/dL 09/26/2024 12:24 PM EDT [facility] Phosphorus, Plasma 3.5 2.5 - 4.5 mg/dL 09/26/2024 12:24 PM EDT [facility] Albumin, Plasma 3.6 3.5 - 5.2 g/dL 09/26/2024 12:24 PM EDT [facility] eGFRcr 113.4 mL/min/1.7 3m*2 09/26/2024 12:24 PM EDT [facility] Comment:Reported eGFRcr in m L/min/1.73m2 is based the CKD-EPI 2020 equation that does not use a race coefficient. Blood Venous blood specimen / Unknown Venipuncture / Unknown 09/26/2024 9:32 AM EDT 09/26/2024 9:32 AM EDT Bill Patrick MD LAB BLOOD ORDERABLES Final Resul t [facility] [address] [place] [id number] * Adult Patch Monitor - 7 Day [...] on Day 3 / 08:47:57 pm SVE(s): [place] was 3.46 %, 55125 total SVE(s) SV Arrhythmia(s): 21 events, longest event 7 beats on Day :05:26 am, fastest event 111 bpm on Day :02:39 am PVC(s): [place] was 0.03 %, 189 total PVC(s), 1 [...] CARDIAC SERVICES PROCED URES Final Result * HIV 1 & 2 Antibody/Antigen Screen (01/22/2019 9:57 AM EST) HIV 1 Result NONREACTIVE Screening for HIV 1 and 2 antibodies is NONREACTIVE. No confirmatory testing is required. SUNQUEST 01/22/2019 9:57 AM EST 01/22/2019 12:12 PM EST Pradip Damico APRN, MARYANA LAB BLOOD ORDERABLES Fin al Result Performing Organization Address City/[facility] Co de Phone Number SUNQUEST * Hepatitis C Antibody (01/22/2019 9:57 AM EST) Pathologist [facility] Hepatitis C Antibody NEGATIVE Reference Range: Negative SUNQUEST 01/22/2019 9:57 AM EST 01/22/2019 12:12 PM EST Pradip Damico APRN, TERRY LAB BLOOD ORDERABLES Fin al Result Performing Organization Address City/[facility] Co de Phone Number SUNQUEST from Last 3 Months or Most Recently Relevant to Health Maintenance Insurance [facility] MEDICAID Advance Directives * Full Code (Latest Code Status on File) Date Activated Date Inactivated Comments 10/17/2024 7:12 PM 10/20/2024 12:16 PM Question Answer Comments I have reviewed the capacity from the link above and, if needed, have updated to appropriate status: Yes Care Teams Director Talent Relationship Specialty Start Date End Date Norma Friedman APRN [address] [place] [address] [phone] PCP - General 09/23/24 Lizz Trinh, RN [facility] Registered Nurse Cardiology 09/26/24
--- NOTE | 2024-10-22 14:15 | US_ITS ---
PROCEDURE: US OB BIOPHYSICAL PROFILE CLINICAL INDICATION: Cholestasis/IUGR COMPARISON: US US OB TRANSVAGINAL from 03/27/2024 US US OB TRANSVAGINAL from 09/19/2024 US US OB BIOPHYSICAL PROFILE from 09/19/2024 US US OB FOLLOW UP from 10/14/2024 FINDINGS: Transabdominal sonographic images of the uterus were obtained. From her established due date she is 34weeks 2days. The following parameters are obtained: Viable Fetus in the cephalic presentation with an anterior placenta grade 2. The cervix measures 3.19 cm Measurements: heart Rate = 135bpm Amniotic fluid index: 11.41cm, MVP 3.72 cm Qualitative AFV:2 Breathing movements: 2 Gross Body Movements: 2 Tone: 2 Biophysical profile score: 8 Doppler evaluation of the umbilical artery: SD ratio: 1.96-2.25 normal Resistive index: 0.56 No obvious anomalies evident.Kidneys, profile, stomach, bladder, four-chamber heart, three-vessel cord appear normal. IMPRESSION: 1. Viable fetus in the cephalic presentation with an anterior placenta grade 2. 2. The fluid is within normal limits with an amniotic fluid index 11.41 cm, MVP 3.72 cm. 3. Biophysical profile is 8/8 with good breathing movement and movement seen. 4. SD ratio is normal 1.96-2.25. 5. Limited anatomical scan appears normal. Dictated by: Boby Ramon MD 10/22/2024 18:42 Boby Ramon MD in OV 10/22/2024 18:42
== END 2024-10-22 23:59 | disposition home or self-care (01) ==
LOC: RAD 13:32
PROVIDERS: PCP Nurse Practitioner Obstetrics & Gynecology; Visit Provider Nurse Practitioner Obstetrics & Gynecology
DX: O26.643 Intrahepatic cholestasis of pregnancy, third trimester (principal); O09.293 Supervision of pregnancy with other poor reproductive or obstetric history, third trimester; R74.8 Abnormal levels of other serum enzymes; Z3A.34 34 weeks gestation of pregnancy
CPT/HCPCS: 76819; 76820

== ENCOUNTER 2024-10-23 08:01 | Outpatient (CLI) | payer OTHER, SELFPAY ==
[2024-10-23 08:28] LABS: Alanine Aminotransferase 24 U/L (12-78); Albumin Level 2.8 g/dl (3.5-5.0); Albumin/Globulin Ratio 1.0 (1.1-1.8); Alkaline Phosphatase 76 U/L (38-126); Anion Gap 5.4 mEq/L (5-15); Aspartate Amino Transferase 29 U/L (14-36); Bilirubin,Total 0.5 mg/dl (0.2-1.3); Blood Urea Nitrogen 5 mg/dl (7-17); Calcium 8.1 mg/dl (8.4-10.2); Carbon Dioxide 21 mmol/L (22.0-30.0); Chloride 109 mmol/L (98-107); Creatinine,Serum 0.50 mg/dl (0.52-1.04); Estimated Glomerular Filt Rate 142 ml/min (>60); GFR (African American) 172 ML/MIN (>60); Globulin 2.9 g/dL (1.3-3.2); Glucose 74 mg/dl (74-100); Magnesium 1.3 mg/dl (1.6-2.3); Potassium 3.4 mmoL/L (3.5-5.1); Sodium 132 mmol/L (136-145); Total Protein,Serum 5.7 g/dl (6.3-8.2)
[2024-10-23 09:10] VITALS: BP 105/62; PULSE 78; RESP 18; O2SAT 97
[2024-10-23] MEDS: MAGNESIUM SULFATE IN WATER 2 GM/50 ML PIGGYBACK IV ×3 (09:10→10:50)
[2024-10-23 10:20] VITALS: BP 102/81; PULSE 78; RESP 18; O2SAT 99
[2024-10-23 11:20] VITALS: BP 108/73; PULSE 84; RESP 18; O2SAT 99
[2024-10-23 12:30] VITALS: BP 110/76; PULSE 78; RESP 18; O2SAT 99
== END 2024-10-23 12:30 | disposition home or self-care (01) ==
LOC: INF 08:02
PROVIDERS: PCP Nurse Practitioner Family; Visit Provider Nurse Practitioner Obstetrics & Gynecology
DX: E87.6 Hypokalemia (principal)
CPT/HCPCS: 80053; 83735; 96365; 96366; 96367; J3475; J3480

== ENCOUNTER 2024-10-25 07:03 | Outpatient (CLI) | payer OTHER, SELFPAY ==
--- OUTSIDE RECORDS SUMMARY | 2024-08-29 10:00 | XMS_ITS | Encounter Summary ---
[facility] Address [address] [place] [address] Care Team Providers Care Road Cutter Name Role Phone IvyKade goldbergjoseseven JOLENE Primary Care Provider + [phone] Reason for Visit * Reason Comments Problem Encounter Details Date Type Department Care Team (Late st Contact Info) Description 08/29/2024 10:00 AM EDT Routine [facility] OBGYN [address] [place] [address] Staci Jain MD [address] [place] [address] GA: 26w4d Social History Tobacco Use Types Packs/Day Years Used Date Smoking Tobacco: Never Smokeless Tobacco: Never Alcohol Use Standard Drinks/Week Comments Never 0 (1 standard drink = 0.6 oz pur e alcohol) [facility] Utilities Answer Date Recorded In the past 12 months has [employer], gas, oil, or water [employer] threatened to shut off services in your [...] hard at all 05/28/2024 [facility] [place] [facility] - Occupational Stress Questionnaire Answer Date [...] GED or equivalent No 05/28/2024 Preferred Language Mohawk 05/28/2024 PHQ-2 Answer Date Recorded Patient Health [...] Description 01/20/2025 3:30 PM EST Office Visit [facility] GASTROENTEROLOGY [address] [address] Robbin Escalante MD [address] [address] documented as of this encounter Procedures Procedure [...] 08/30/2024 6:09 AM EDT Performed at: [address] [id number] Insurance Coordinator: Kevin Harman MD, Phone: [phone] Patient Fasting: N us Staci Jain MD LAB BLOOD ORDERABLES Final Result [facility] (AMBULATORY) [address] [place] [address], [facility] [address] [place] [address], * (ABNORMAL) Comprehensive Metabolic Panel (08/29/2024 11:05 [...] 11:0 5 AM EDT 08/29/2024 Narrative [facility] (AMBULATORY) - 08/30/2024 6:09 AM EDT Performed at: 01 - [place] [address] [address] [place], [place] [id number] Insurance Coordinator: Kevin Harman MD, Phone: [phone] Patient Fasting: N Staci Jain MD LAB BLOOD ORDERABLES Final Result Performing Organization Address City/[facility]/ZIP Co de Phone Number [facility] ([facility]) [address] [place] [address], [place] [phone] [facility] [address] [place] [address], [place] [phone] * (ABNORMAL) POC Urinalysis Dipstick (08/29/2024 10:13 AM EDT) Glucose, UA Negative Negative mg/dL [facility] Protein, POC Trace(A) Negative mg/dL [facility] Urine 08/29/2024 10:1 3 AM EDT us Staci Jain MD POINT OF CARE TEST OR DERABLES Final Result Performing Organization Address City/[facility]/ZIP Co de Phone Number [facility]
[address] [place] [address], documented in this encounter Visit Diagnoses Diagnosis [...] documented as of this encounter Care Teams Road Cutter Relationship Specialty Start Date End Date Norma Friedman APRN [address] [place] G3 RAFAELA APPIAH [address] PCP - General Family Medicine 05/14/24 documented as of this encounter
--- OUTSIDE RECORDS SUMMARY | 2024-09-23 10:00 | XMS_ITS | Encounter Summary ---
Author Organization [facility] Address [address] [place] [address] Care Team Providers Care Denial Resolution Specialist Name Role Phone Norma Friedman JOLENE Primary Care Provider +1- [phone] Reason for Referral * Consultation (Routine) - Closed Specialty Diagnoses / Procedures Referred By Contac t Referred To Contact Cardiology Diagnoses Supervision of high risk , antepartum Cardiac arrhythmia, unspecified cardiac arrhythmia type Liborio Weller MD [address] [facility] [address] [place] [address] Phone: tel: fax: Referral ID Status Reason Start Date Expiration Date V isits Requested Visits Authorized [id number] Closed Specialty Services Required 09/23/2024 03/25/2026 1 1 Encounter Details Date Type Department Care Team ([facility] st Contact Info) Description 09/23/2024 10:00 AM EDT Office Visit Medical Office Building Obstetrics and Gynecology [address] [facility], [address] [place] [address] Liborio Weller MD [address] [facility] [address] [place] [address] Supervision of high risk , [...] more drinks on one occasion? Never 09/23/2024 [place] Depression Scale Answer Date Recorded [place] Depression Scale Total 0 09/23/2024 The thought [...] last week on 09/19. She presented to [facility] for chest pain and palpitations. She [...] 09/25 and has otherwise never seen a fiberglass boat builder. She has never seen a electrolysis needle operator. She also reports during this admission [...] None N JAGDISH Complications: Potassium (K) deficiency [place] Depression Scale Total: 0 Gynecology History No [...] has a past surgical history that includes [place] tooth extraction (N/A); section, low transverse (N/A); [...] prescription(s): ferosul, potassium chloride cr, prenat mv-min w/cs-ixfdzn-arx, and thiamine. Allergies Allergies[1] Review of Systems [...] and arrhythmia during admission to [facility] on 09/19 HR to 170s-180s with standing, [...] other day Has never been evaluated by fiberglass boat builder for salt wasting nephropathy PLAN Has nephrology [...] the patient, and documenting this visit. (Est [id number]) Brandee Pringle MD Obstetrics & Gynecology, PGY-2 [...] Care Team (Late st Contact Info) Description 10/31/2024 Hospital Encounter [facility] [address] [place] [address] 11/14/2024 11:15 AM EDT Visit Medical Office Building Obstetrics and Gynecology [address] [facility], [address] [place] [address] Nneka Gipson MD [address] [place] [address] 12/25/2024 1:00 PM EST Office Visit [facility] Nephrology, Bone & Mineral Metabolism [address] [facility], [address] [place] [address] Scheduled Referrals Name Type Priority [...] Ketones, Urine 40(A) Negative mg/dL POCT Specific [place], Urine 1.015 POCT Blood, Urine Negative Negative POCT pH, Urine >=9.0(A) 5.0 to 8.0 POCT Protein, Urine 100(A) Negative mg/dL POCT Urobilinogen, Urine 0.2 0.2, 1 E.U./dL POCT Nitrite, Urine Negative Negative POCT Leukocyte Esterase, Urine Negative Negative Test Strip Lot Number [id number] Test Strip Lot Expiration 07/2025 Urine Urine [...] documented as of this encounter Care Teams Denial Resolution Specialist Relationship Specialty Start Date End Date Norma Friedman APRN [address] [place] [address] PCP - General 09/23/24 documented as of this encounter
--- OUTSIDE RECORDS SUMMARY | 2024-09-25 14:20 | XMS_ITS | Encounter Summary ---
Author Organization Healthcare Address [address] [place] [address] Care Team Providers Care Pumping Station Supervisor Name Role Phone Norma Friedman JOLENE Primary Care Provider +1- [phone] Reason for Referral * Consultation (Routine) - Authorized Specialty Diagnoses / Procedures Referred By Tarik pedersen Referred To Contact Diagnoses Hypokalemia Bill Patrick MD [address] [place] [phone] Phone: tel: fax: Referral ID Status Reason Start Date Expiration Date V isits Requested Visits Authorized [id number] Authorized 09/25/2024 03/27/2026 1 1 * Imaging (Routine) - Authorized Specialty Diagnoses / Procedures Referred By Tarik pedersen Referred To Contact Radiology Diagnoses Hypokalemia Procedures US Renal Complete Bill Patrick MD [address] [place] [phone] Phone: tel: fax: Referral ID Status Reason Start Date Expiration Date V isits Requested Visits Authorized [id number] Authorized 09/25/2024 03/27/2026 1 1 Reason for Visit * Reason Comments Consult * Consultation (Routine) - Closed Specialty Diagnoses / Procedures Referred By Tarik pedersen Referred To Contact Nephrology Diagnoses Hypokalemia Liborio Weller MD [address] [address] Phone: tel: fax: [facility] Nephrology, Bone & Mineral Metabolism [address] , [address] [place] [address] Phone: tel: fax: Referral ID Status Reason Start Date Expiration Date V isits Requested Visits Authorized [id number] Closed Specialty Services Required 09/14/2024 03/16/2026 1 1 Encounter Details Date Type Department Care Team (Late st Contact Info) Description 09/25/2024 2:20 PM EDT Office Visit [facility] Nephrology, Bone & Mineral Metabolism [address] , [address] [place] [address] Bill Patrick MD [address] [place] [address] Hypokalemia (Primary Dx) Social History [...] more drinks on one occasion? Never 09/23/2024 [place] Depression Scale Answer Date Recorded [place] Depression Scale Total 0 09/23/2024 The thought [...] 37 weeks andshe did not see a Director Of Regulatory Affairs at that time. Also notes she has [...] Date SECTION, LOW TRANSVERSE N/A section from [facility] DILATION AND CURETTAGE OF UTERUS N/A Dilation and curettage from [facility] WISDOM TOOTH EXTRACTION N/A Oral Surgery Tooth Extraction [place] Tooth from [facility] [3] Family History Problem Relation Name Age [...] mouth 3 times a day.) Prenat MV-Min w/Pp-Cbtmmk-ZRZ ( COMPLETE PO) thiamine (Vitamin B-1) 100 [...] Encounter [facility] Delivery [address] [place] [address] 11/14/2024 11:15 AM EDT Visit Medical Office Building Obstetrics and Gynecology [address], [address] [place] [address] Nneka Gipson MD [address] [place] [address] 12/25/2024 1:00 PM EST Office Visit [facility] Nephrology, Bone & Mineral Metabolism [address] , [address] [place] [address] Scheduled Orders Name Type Priority [...] Chloride, Urine 25 mmol/L 2:03 PM EDT [facility] Urine Urine specimen obtained by clean catch procedure / Unknown Non-blood Collection / Unknown 09/26/2024 10:07 AM EDT 09/26/2024 10:07 AM EDT us Bill Patrick MD LAB URINE ORDERABLES Final Resul t [facility] [address] [place] [address] * Protein, Random, Urine with Creatinine (09/26/2024 10:03 AM EDT) Protein, Urine 26 mg/dL 09/26/2024 12:08 PM EDT [facility] Creatinine, Urine 199 mg/dL 09/26/2024 12:08 PM EDT [facility] Protein/Creati nine Ratio 0.1 mg/mg Creat 09/26/2024 12:08 PM EDT [facility] Urine Urine specimen obtained by clean catch procedure / Unknown Non-blood Collection / Unknown 09/26/2024 10:03 AM EDT 09/26/2024 10:04 AM EDT us Bill Patrick MD LAB URINE ORDERABLES Final Resul t Performing Organization Address City/[facility]/ZIP Co de Phone Number [facility] [address] [place] [address] * Potassium, urine, random (09/26/2024 10:02 AM EDT) Potassium, Urine 43 mmol/L 09/26/2024 11:55 AM EDT [facility] Urine Urine specimen obtained by clean catch procedure / Unknown Non-blood Collection / Unknown 09/26/2024 10:02 AM EDT 09/26/2024 10:02 AM EDT us Bill Patrick MD LAB URINE ORDERABLES Final Resul t Performing Organization Address City/[facility] de Phone Number [facility] [address] [place] [address] * Osmolality, urine (09/26/2024 10:02 AM EDT) Osmolality, Urine 404 50 - 1,200 mOsm/kg 09/26/2024 1:48 PM EDT [facility] Urine Urine specimen obtained by clean catch procedure / Unknown Non-blood Collection / Unknown 09/26/2024 10:02 AM EDT 09/26/2024 10:02 AM EDT us Bill Patrick MD LAB URINE ORDERABLES Final Resul t Performing Organization Address City/[facility]/ZIP Co de Phone Number [facility] [address] [place] [address] * Sodium, urine, random (09/26/2024 10:02 AM EDT) Sodium, Urine 110 mmol/L 09/26/2024 11:55 AM EDT [facility] Urine Urine specimen obtained by clean catch procedure / Unknown Non-blood Collection / Unknown 09/26/2024 10:02 AM EDT 09/26/2024 10:02 AM EDT Bill Patrick MD LAB URINE ORDERABLES Final Resul t [facility] [address] [place] [address] * Antinuclear Antibody (JEFFERY), HEp-2, IgG (09/26/2024 9:32 AM EDT) JEFFERY INTERPRETIVE COMMENT See Note 09/28/2024 5:13 PM EDT [facility] ([facility]) Anti Nuc Ab Screen <1:80 <1:80 09/28/2024 5:13 PM EDT [facility] ([facility]) Blood Venous blood specimen / Unknown Venipuncture / Unknown 09/26/2024 9:32 AM EDT 09/26/2024 9:32 AM EDT Narrative [facility] ([facility]) - 09/28/2024 5:13 PM EDT INTERPRETIVE INFORMATION: [...] rings, and cytoplasmic speckled patterns. Performed By: [facility] [address] [place] [id number] Package Line Relief Operator: Brandon Bell MD, PhD CLIA Number: [id number] Bill Patrick MD LAB BLOOD ORDERABLES Final Resul t [facility] [address] [place] [address] * Rheumatoid factor, plasma (09/26/2024 9:32 AM EDT) Rheumatoid Factor, Plasma <10 <14 IU/mL 09/26/2024 1:49 PM EDT [facility] Blood Venous blood specimen / Unknown Venipuncture / Unknown 09/26/2024 9:32 AM EDT 09/26/2024 9:32 AM EDT Bill Patrick MD LAB BLOOD ORDERABLES Final Resul t [facility] [address] [place] [address] * SSB (LA) (YARA) ANTIBODY, IGG (09/26/2024 9:32 AM EDT) SSB (LA) (YARA) Antibody, IgG 0 0 - 40 AU/mL 09/28/2024 5:47 PM EDT [facility] Serum Venous blood specimen / Unknown 09/26/2024 9:32 AM EDT 09/26/2024 9:32 AM EDT Narrative [facility]) - 09/28/2024 5:47 PM EDT INTERPRETIVE INFORMATION: [...] (PSS) also have this antibody. Performed By: [facility] [address] [place] [address] Package Line Relief Operator: Brandon Bell MD, PhD CLIA Number: [id number] Bill Ptarick MD LAB BLOOD ORDERABLES Final Resul t [facility] ([facility]) [address] [place] [address] * SSA 52 and 60 (Ro) (YARA) Antibodies, IgG (09/26/2024 9:32 AM EDT) SSA-52 (RO52) (YARA) Antibody, IgG 2 0 - 40 AU/mL 09/28/2024 5:47 PM EDT [facility] ([facility]) SSA-60 (RO60) (YARA) Antibody, IgG 0 0 - 40 AU/mL 09/28/2024 5:47 PM EDT [facility] ([facility]) Serum 09/26/2024 9:32 AM EDT 09/26/2024 9:32 AM EDT Narrative [facility] ([facility]) - 09/28/2024 5:47 PM EDT INTERPRETIVE INFORMATION: [...] AU/mL or Greater .......... Positive Performed By: [facility] [address] [place] [address] Package Line Relief Operator: Brandon Bell MD, PhD CLIA Number: [id number] Bill Patrick MD LAB REF LAB BLOOD AND FLUID ORD Final Result [facility] ([facility]) [address] [place] [address] * (ABNORMAL) Renal function panel (09/26/2024 9:32 AM EDT) [facility] Glucose, Plasma 87 74 - 99 [...] ORDERABLES Final Resul t Performing Organization Address City/[facility] de Phone Number [facility] [address] [place] [address] * (ABNORMAL) Osmolality (09/26/2024 9:32 AM EDT) Osmolality, Serum 273(L) 275 - 295 mOsm/Kg 09/26/2024 2:10 PM EDT [facility] Blood Venous blood specimen / Unknown Venipuncture / Unknown 09/26/2024 9:32 AM EDT 09/26/2024 9:32 AM EDT us Bill Patrick MD LAB BLOOD ORDERABLES Final Resul t Performing Organization Address [facility] de Phone Number [facility] [address] [place] [address] documented in this encounter Visit Diagnoses Diagnosis Hypokalemia- Primary Hypopotassemia documented in this encounter Additional Health Concerns Assessment Noted Time A fall risk assessment has been complete d for the patient 09/25/2024 3:05 PM EDT A Body Mass Index follow-up plan has been documented for the patient 10/05/2024 8:54 PM EDT documented as of this encounter Care Teams Pumping Station Supervisor Relationship Specialty Start Date End Date Norma Friedman APRN [address] [place] [address] PCP - General 09/23/24 documented as of this encounter
--- OUTSIDE RECORDS SUMMARY | 2024-09-26 08:00 | XMS_ITS | Encounter Summary ---
Author Organization [facility] Address [address] [place] [address] Care Team Providers Care V Belt Skiver Name Role Phone Norma Friedman CRIMINALIST TECHNICIAN Primary Care Provider +1- [phone] Lizz Trinh RN Unavailable Unavailable Reason for Referral * Consultation (Routine) - Closed Specialty Diagnoses / Procedures Referred By Tarik t Referred To Contact Diagnoses Palpitations Syncope and collapse Nneka Vasquez MD [address] [place] [phone] Phone: tel: fax: Referral ID Status Reason Start Date Expiration Date Visits Re quested Visits Authorized [id number] Closed 09/26/2024 03/28/2026 1 1 * Cardiac Stress Testing (Routine) - Closed Specialty Diagnoses / Procedures Referred By Contac t Referred To Contact Cardiology Diagnoses Palpitations Syncope and collapse Procedures Adult Patch Monitor - 7 Day Nneka Vasquez MD [address] [place] [phone] Phone: tel: fax: Referral ID Status Reason Start Date Expiration Date Visits Re quested Visits Authorized [id number] Closed 09/26/2024 03/28/2026 1 1 Reason for Visit * Consultation (Routine) - Closed Specialty Diagnoses / Procedures Referred By Contac t Referred To Contact Cardiology Diagnoses Supervision of high risk , antepartum Cardiac arrhythmia, unspecified cardiac arrhythmia type [place] Preciado MD [address] [address] Phone: tel: fax: Referral ID Status Reason Start Date Expiration Date V isits Requested Visits Authorized [id number] Closed Specialty Services Required 09/23/2024 03/25/2026 1 1 Encounter Details Date Type Department Care Team (Late st Contact Info) Description 09/26/2024 8:00 AM EDT Office Visit [facility] [place] [address] [facility], [address] [place] [address] Nneka Vasquez MD [address] [place] [address] Syncope and collapse (Primary Dx); [...] more drinks on one occasion? Never 09/23/2024 [place] Depression Scale Answer Date Recorded [place] Depression Scale Total 0 09/23/2024 The thought [...] Vasquez MD - 09/26/2024 8:00 AM EDT [place] [facility] ([facility]) Problem List #Hypomagnesium and Hypokalemia -- PICC [...] home with no plans. 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 miner pick today to evaluate for abnormal rhythms and [...] TOOTH EXTRACTION N/A Oral Surgery Tooth Extraction [place] Tooth from [employer] [3] Social History Socioeconomic History Marital status: [...] Resource Strain: Low Risk (05/28/2024) Received from [facility] Overall Financial Resource Strain (CARDIA) Difficulty of Paying Living Expenses: Not hard at all Food Insecurity: No Food Insecurity (05/28/2024) Received from [facility] Hunger Vital Sign Within the past 12 months, you worried that your food would run out before you got the money to buymore.: Never true Within the past 12 months, the food you bought just didn't last and you didn't have money to get more.: Never true Transportation Needs: No Transportation Needs (05/28/2024) Received from [facility] PRAPARE - Transportation In the past 12 months, has lack of transportation kept you from medical appointments or from getting medications?: No In the past 12 months, has lack of transportation kept you from meetings, work, or from getting things needed for daily living?: No Physical Activity: Sufficiently Active (05/28/2024) Received from [facility] Exercise Vital Sign On average, how many days per week do you engage in moderate to strenuous exercise (like a brisk walk)?: 5 days On average, how many minutes do you engage in exercise at this level?: 40 min Stress: Stress Concern Present (05/27/2024) Received from [facility] [place] of Occupational Health - Occupational Stress Questionnaire Feeling of Stress : To some extent Social Connections: Not At Risk (05/28/2024) Received from [facility] Family and Community Support If for any reason you need help with day-to-day activities such as bathing, preparing meals, shopping, managing finances, etc., do you get the help you need?: I don't need any help How often do you feel lonely or isolated from those around you?: Sometimes Intimate Partner Violence: Not At Risk (08/19/2024) Received from [facility] Abuse Screen Feels Unsafe at Home or Work/School: no Feels Threatened by Someone: no Does Anyone Try to Keep You From Having Contact with Others or Doing Things Outside Your Home?: no Physical Signs of Abuse Present: no Housing Stability: Not At Risk (08/20/2024) Received from [facility] Housing Stability Current Living Arrangements: home [...] Encounter [facility] [address] [place] [address] 11/14/2024 11:15 AM EDT Visit Medical Office Building Obstetrics and Gynecology [address] [facility], [address] [place] [phone] Nneka Gipson MD [address] [place] [address] 12/25/2024 1:00 PM EST Office Visit [facility] Nephrology, Bone & Mineral Metabolism [address] [facility], [address] [place] [phone] Scheduled Referrals Name Type Priority Associated Diagnoses [...] was 73 bpm on Day 2 / 05:24:57 am, Max heart rate was 181 bpm on Day 3 / 08:47:57 pm SVE(s): [place] was 3.46 %, [id number] total SVE(s) SV Arrhythmia(s): 21 events, longest event 7 beats on Day 03:05:26 am, fastest event 111 bpm on Day 02:02:39 am PVC(s): [place] was 0.03 %, 189 total PVC(s), 1 disparate morphologies Patient recorded 6 event(s) during the monitoring period PHYSICIAN COMMENTS: Predominant rhythm is sinus rhythm. Occasional premature atrial and rare premature ventricular complexes were recorded during the monitoring period. No malignant cardiac rhythms were recorded during the monitoring period. Triggered events were not associated with clinical arrhythmias (all during sinus rhythm). us Nneka Vasquez MD CV CARDIAC SERVICES PROCED URES Final Result * ECG Adult (Now - Performed in your clinic) (09/26/2024 8:21 AM EDT) EKG DIAGNOSIS CLASS Normal MUSE ECG Ventricular Rate 84 BPM MUSE ECG Atrial Rate 84 BPM MUSE ECG [place] Interval 148 ms MUSE ECG QRSD Interval 74 ms MUSE ECG QT Interval 374 ms MUSE ECG QTC Interval 441 ms MUSE ECG P [place] 60 degrees MUSE ECG R [place] 36 degrees MUSE ECG T Wave [place] 55 degrees MUSE ECG Diagnosis Normal sinus rhythm with sinus arrhythmia MUSE ECG Diagnosis Normal ECG MUSE ECG Diagnosis MUSE ECG Diagnosis Confirmed by Abad South ([id number]) on 09/26/2024 12:13:59 PM MUSE ECG 09/26/2024 8:21 AM EDT 09/26/2024 12:13 PM EDT us Nneka Vasquez MD ECG ORDERABLES Final Resu [...] documented as of this encounter Care Teams V Belt Skiver Relationship Specialty Start Date End Date Norma Friedman APRN [address] [place] [address] PCP - General 09/23/24 Lizz Trinh, RN [facility] Registered Nurse Cardiology 09/26/24 documented as of this encounter
--- OUTSIDE RECORDS SUMMARY | 2024-09-26 09:06 | XMS_ITS | Encounter Summary ---
Author Organization [facility] Address [address] [place] [address] Care Team Providers Care Foreign Diplomat Name Role Phone Elder Kadedev Coy MAPLE PRODUCTS SUPERVISOR Primary Care Provider +1- [phone] Lizz Trinh RN Unavailable Unavailable Reason for Referral * Cardiac Stress Testing (Routine) - Closed Specialty Diagnoses / Procedures Referred By Tarik pedersen Referred To Contact Cardiology Diagnoses Palpitations Syncope and collapse Procedures Adult Patch Monitor - 7 Day Nneka Vasquez MD [address] [place] [address] Phone: tel: fax: Referral ID Status Reason Start Date Expiration Date Visits Re quested Visits Authorized [id number] Closed 09/26/2024 03/28/2026 1 1 Reason for Visit * Cardiac Stress Testing (Routine) - Closed Specialty Diagnoses / Procedures Referred By Tarik pedersen Referred To Contact Cardiology Diagnoses Palpitations Syncope and collapse Procedures Adult Patch Monitor - 7 Day Nneka Vasquez MD [address] [place] [address] Phone: tel: fax: Referral ID Status Reason Start Date Expiration Date Visits Re quested Visits Authorized [id number] Closed 09/26/2024 03/28/2026 1 1 Encounter Details Date Type Department Care Team (Latest Contact Info) Description 09/26/2024 9:06 AM EDT - 09/26/2024 11:59 PM EDT Hospital Encounter Medical Office Building Cardiac Diagnostic Testing Medical Office Building Echo Lab [address] [facility], [address] [place] [address] Palpitations; Syncope and collapse Discharge [...] more drinks on one occasion? Never 09/23/2024 [place] Depression Scale Answer Date Recorded [place] Depression Scale Total 0 09/23/2024 The thought [...] encounter Medications at Time of Discharge famotidine (Pepcid) 20 MG tablet Take 1 tablet by mouth 2 times a day. 04/12/2024 FeroSul 325 (65 Fe) MG tablet Take 1 tablet by mouth daily. 09/12/2024 Prenat MV-Min w/Le-Ubtgcc-HDE ( COMPLETE PO) 12/25/2018 thiamine (Vitamin B-1) 100 MG tablet Take 1 tablet by mouth 1 time each day. 09/01/2024 metoprolol succinate XL (Toprol XL) 25 MG [...] FOR NAUSEA AND VOMITING FOR 4 DAYS 5 pantoprazole (Protonix) 40 MG EC tablet 12/14/2023 5 potassium chloride (Klor-Con) 20 MEQ packet Take twice a day for 3 days each week. Weekly labs 09/01/2024 5 potassium chloride CR 10 MEQ PO ER tablet Take 1 tablet by mouth 2 times a day. 09/02/2024 5 documented as of this encounter Plan of Treatment Upcoming Encounters Date Type Department Care Team ([facility] st Contact Info) Description 10/31/2024 Hospital Encounter [facility] [address] [place] [address] 11/14/2024 11:15 AM EDT Visit Medical Office Building Obstetrics and Gynecology [address] [facility], [address] [place] [address] Nneka Gipson MD [address] [place] [address] 12/25/2024 1:00 PM EST Office Visit [facility] Nephrology, Bone & Mineral Metabolism [address] [facility], [address] [place] [address] documented as of this encounter Procedures Procedure Name Priority Date/Time Associated Diagnosis Comments ADULT PATCH MONITOR - 7 DAY Routine 09/26/2024 9:23 AM EDT Palpitations Syncope and collapse documented in this encounter Results * Adult Patch Monitor - 7 Day (09/26/2024 9:23 AM EDT) BSA 1.78 m2 BIOTELEMETRY Anatomical Region Laterality Modality Other Narrative 10/12/2024 5:12 PM EDT NNEKA VASQUEZ MD has been notified of the fainting/syncope [09/30/2024 11:56:25 AM - VICKEY AHRLEY] PRELIMINARY FINDINGS: Analysis date: 09/30/24 - by GABRIELLA LARA REPORT MET PHYSICIAN S NOTIFICATION CRITERIA: Patient reported Syncope/ Fainting at 04:51 PM on 09/27/24. Patient monitored for 3d 22h, analyzable time was 3d 22h starting on 09/26/2024 09:19 am. Primary rhythm was Sinus tachycardia. Average heart rate was 105 bpm, Minimum heart rate was 73 bpm on Day 2 :24:57 am, Max heart rate was 181 bpm on Day 3 / 08:47:57 pm SVE(s): Cranks was 3.46 %, [id number] total SVE(s) SV Arrhythmia(s): 21 events, longest event 7 beats on Day :05:26 am, fastest event 111 bpm on Day :02:39 am PVC(s): Cranks was 0.03 %, 189 total PVC(s), 1 [...] CV CARDIAC SERVICES PROCED URES Final Result documented in this encounter Visit Diagnoses Diagnosis Palpitations Syncope and collapse documented in this encounter Additional Health Concerns Assessment Noted Time A fall risk assessment has been complete d for the patient 09/26/2024 8:15 AM EDT A Body Mass Index follow-up plan has been documented for the patient 09/27/2024 10:22 AM EDT documented as of this encounter Care Teams Foreign Diplomat Relationship Specialty Start Date End Date Norma Friedman APRN [address] [place] [id number] PCP - General 09/23/24 Lizz Trinh, RN [facility] Registered Nurse Cardiology 09/26/24 documented as of this encounter
--- OUTSIDE RECORDS SUMMARY | 2024-10-17 09:15 | XMS_ITS | Encounter Summary ---
Author Organization Healthcare Address [address] [place] [address] Care Team Providers Care Ceramics Engineer Name Role Phone Norma Friedman JOLENE Primary Care Provider +1- [phone] Lizz Trinh RN Unavailable Unavailable Encounter Details Date Type Department Care Team (Latest Contact Info) Description 10/17/2024 9:15 AM EDT Routine Medical Office Building Obstetrics and Gynecology [address] [facility], [address] [place] [address] Nneka Gipson MD [address] [place] [address] NST (non-stress test) nonreactive (Primary [...] more drinks on one occasion? Never 09/23/2024 [place] Depression Scale Answer Date Recorded [place] Depression Scale Total 0 09/23/2024 The thought [...] Brandan with primary OB Dr Marin in [facility] O+/RI/HCV-/HIV- Needs HBV and syphilis G/C [...] Had tachycardia and arrhythmia during admission to [facility] on 09/19 HR to 170s-180s with [...] Kaitlyn Richter MD PGY-2, Obstetrics and Gynecology [facility] Cosigned by Nneka Gipson MD at 10/17/2024 12:41 PM EDT Associated attestation - Nneka Gipson MD - 10/17/2024 12:41 PM EDT I saw and evaluated the patient with the resident/fellow. I discussed the case with the resident/fellow and agree with the findings and plan as documented. Patient lives in [facility] about 1.5h away, has primary OB [...] Encounter [facility] [address] [place] [address] 11/14/2024 11:15 AM EDT Visit Medical Office Building Obstetrics and Gynecology [address] [facility], [address] [place] [address] Nneka Gipson MD [address] [place] [address] 12/25/2024 1:00 PM EST Office Visit [facility] Nephrology, Bone & Mineral Metabolism [address] [facility], [address] [place] [address] documented as of this encounter [...] Ketones, Urine Negative Negative mg/dL POCT Specific [place], Urine 1.015 POCT Blood, Urine Negative Negative POCT pH, Urine 8.5(A) 5.0 to 8.0 POCT Protein, Urine 30(A) Negative mg/dL POCT Urobilinogen, Urine 0.2 0.2, 1 E.U./dL POCT Nitrite, Urine Negative Negative POCT Leukocyte Esterase, Urine Negative Negative Test Strip Lot Number [id number] Test Strip Lot Expiration 07/2025 Urine Urine [...] Date End Date Norma Friedman APRN [address] [place] [address] PCP - General 09/23/24 Lizz Trinh, RN [facility] Registered Nurse Cardiology 09/26/24 documented as of this encounter
--- OUTSIDE RECORDS SUMMARY | 2024-10-17 09:30 | XMS_ITS | Encounter Summary ---
Author Organization Healthcare Address [address] [place] [address] Care Team Providers Care Community Relations Assistant Name Role Phone Norma Friedman FINAL TESTER Primary Care Provider +1- [phone] iLzz Trinh RN Unavailable Unavailable Reason for Visit * Reason Comments NST/BPP Visit [facility] * Auth/Cert (Routine) Specialty Diagnoses / Procedures Referred By Contac t Referred To Contact Diagnoses Hypokalemia Electrolyte abnormality Hilton Montelongo MD [address] [facility] [address] [place] [address] Phone: tel: fax: [facility] H Labor and Delivery [address] [place] [address] Phone: tel: fax: Referral ID Status Reason Start Date Expiration Date Visits Re quested Visits Authorized [id number] 1 1 Encounter Details Date Type Department Care Team ([facility] st Contact Info) Description 10/17/2024 9:30 AM EDT NST Medical Office Building Obstetrics and Gynecology [address] [facility], [address] [place] [address] growth restriction antepartum (Primary Dx) [...] drinks on one occasion? Never 09/23/2024 [place] Depression Scale Answer Date Recorded [place] Depression Scale Total 0 09/23/2024 The thought [...] AND GYNECOLOGY for a nonstress test with [facility] RPV. complicated by growth restriction. See encounter [...] Encounter [facility] H Labor and Delivery [address] [place] [address] 11/14/2024 11:15 AM EDT Visit Medical Office Building Obstetrics and Gynecology [address] [facility], [address] [place] [address] Nneka Gipson MD [address] [place] [address] 12/25/2024 1:00 PM EST Office Visit [facility] Nephrology, Bone & Mineral Metabolism [address] [facility], [address] [place] [address] documented as of this encounter Visit Diagnoses Diagnosis growth restriction antepartum- Primary documented in this encounter Additional Health Concerns Assessment Noted Time A fall risk assessment has been complete d for the patient 09/26/2024 8:15 AM EDT A Body Mass Index follow-up plan has been documented for the patient 10/20/2024 9:52 AM EDT documented as of this encounter Care Teams Community Relations Assistant Relationship Specialty Start Date End Date Norma Friedman APRN [address] [place] [address] PCP - General 09/23/24 Lizz Trinh, RN [facility] Registered Nurse Cardiology 09/26/24 documented as of this encounter
--- OUTSIDE RECORDS SUMMARY | 2024-10-17 10:30 | XMS_ITS | Encounter Summary ---
Author Organization Healthcare Address [address] [place] [address] Care Team Providers Care Paper Slitter Name Role Phone Norma Friedman APRN Primary Care Provider +1- [phone] Lizz Trinh RN Unavailable Unavailable Reason for Visit * Imaging (Routine) - Closed Specialty Diagnoses / Procedures Referred By Tarik t Referred To Contact Obstetrics Diagnoses NST (non-stress test) nonreactive Procedures OB US Detail Anatomy OB US Biophysical Profile w Non Stress Test Nneka Gipson MD [address] [place] [address] Phone: tel: fax: Referral ID Status Reason Start Date Expiration Date Visits Re quested Visits Authorized [id number] Closed 10/17/2024 04/18/2026 1 1 Encounter Details Date Type Department Care Team (Latest Contact Info) Description 10/17/2024 10:30 AM EDT - 10/17/2024 3:46 PM EDT Hospital Encounter Medical Office Building Obstetrics and Gynecology [address] [facility], [address] [place] [address] NST (non-stress test) nonreactive Discharge [...] more drinks on one occasion? Never 09/23/2024 [place] Depression Scale Answer Date Recorded [place] Depression Scale Total 0 09/23/2024 The thought [...] Harman RN 6. Suicidal Behavior (Lifetime) No 5 4:00 PM EDT [place] Harman RN documented [...] not crush, chew, or split. Prenat MV-Min w/Jy-Qjqqkh-LZP ( COMPLETE PO) 12/25/2018 promethazine (Phenergan) 12.5 [...] Encounter [facility] Labor and Delivery [address] [place] [address] 11/14/2024 11:15 AM EDT Visit Medical Office Building Obstetrics and Gynecology [address] [facility], [address] [place] [address] Nneka Gipson MD [address] [place] [address] 12/25/2024 1:00 PM EST Office Visit [facility] Nephrology, Bone & Mineral Metabolism [address] [facility], [address] [place] [address] documented as of this encounter [...] Please navigate to the Imaging tab in [employer] for review. This message has been generated by the interface. Narrative Procedure Note Melonie Wheeler MD - 10/17/2024 IMPRESSION: The OB Ultrasound you requested has been resulted. Please navigate to theImaging tab in [employer] for review. This message has been generated [...] documented as of this encounter Care Teams Paper Slitter Relationship Specialty Start Date End Date Norma Friedman APRN [address] [place] [address] PCP - General 09/23/24 Lizz Trinh, RN [facility] Registered Nurse Cardiology 09/26/24 documented as of this encounter
--- OUTSIDE RECORDS SUMMARY | 2024-10-17 15:47 | XMS_ITS | Encounter Summary ---
Author Organization Healthcare Address [address] [place] [address] Care Team Providers Care Hotel Or Motel Manager Name Role Phone Valentino burgerseven Coy [facility] Primary Care Provider [phone] Lizz Trinh RN Unavailable Unavailable Reason for Visit * Auth/Cert (Routine) Specialty Diagnoses / Procedures Referred By Tarik pedersen Referred To Contact Diagnoses Hypokalemia Electrolyte abnormality Hilton Montelongo MD [address] [address] Phone: tel: fax: [facility] [address] [place] [address] Phone: tel: fax: Referral ID Status Reason Start Date Expiration Date Visits Re quested Visits Authorized [id number] 1 1 Encounter Details Date Type Department Care Team (Latest Contact Info) Description 10/17/2024 3:47 PM EDT - 10/20/2024 10:16 AM EDT Hospital Encounter [facility] [address] [place] [address] Hilton Montelongo MD [address] [address] Discharge Disposition: Home or Self Care Social [...] more drinks on one occasion? Never 09/23/2024 [place] Depression Scale Answer Date Recorded [place] Depression Scale Total 0 09/23/2024 The thought [...] Sign Reading Time Taken Comments Blood Pressure 110/58 10/20/2024 7:50 AM EDT Pulse 85 10/20/2024 7:50 AM EDT Temperature 36.8 C (98.2 F) 10/20/2024 7:50 AM EDT Respiratory Rate 18 10/20/2024 7:50 AM EDT Oxygen Saturation 100% 10/18/2024 8:10 PM EDT Inhaled Oxygen Concentration - - Weight 66.7 kg (147 lb) 10/18/2024 4:44 PM EDT Height 162.6 cm (5' 4 ) 10/18/2024 4:44 PM EDT Body Mass Index 25.23 10/18/2024 4:44 PM EDT documented in this encounter Functional Status * Calculated C-SSRS Risk Score (Lifetime/Recent) Answer Date of Assessment Author No Risk Indicated 10/18/2024 4:00 PM EDT Tex Harman RN * Question Answer Date of Assessment Author 1. Wish to be (Past 1 Month) No 025 4:00 PM EDT Tex Harman RN 2. Non-Specific Active Suici mike Thoughts (Past 1 Month) No 10/18/2024 4:00 PM EDT Dandre Harman, RN 6. Suicidal Behavior (Lifetime) No 4:00 [...] not crush, chew, or split. Prenat MV-Min w/Xw-Vrtujn-QLB ( COMPLETE PO) 12/25/2018 promethazine (Phenergan) 12.5 MG tablet Take 1 tablet by mouth 3 times a day. 09/27/2024 thiamine (Vitamin B-1) 100 MG tablet Take 1 tablet by mouth 1 time each day. 09/01/2024 ursodiol (Actigall) 300 MG capsule Take 1 capsule by mouth 2 times a day. 10/11/2024 documented as of this encounter Miscellaneous Notes * Nursing Note - Amando Chahal RN - 10/20/2024 10:16 AM EDT Remote Telemetry Nursing Note Event Type: Patient educated on telemetry monitoring and Routine rounds Heart Rate of 97 normal sinus rhthym S1/S2: Audible Patient Condition: Telemetry Status Stable Patient Disposition: Discontinue Remote Telemetry: Patient discharged home * Progress Notes - Santos Herrmann MD - 10/20/2024 10:16 AM EDT Subjective: No acute events overnight Review of Systems: Constitutional: no fevers, no weakness, no weight loss, normal appetite Cardiovascular: + chest pain, no palpitations, no edema Respiratory: + shortness of breath, no cough Gastrointestinal: + nausea, no vomiting, no diarrhea, no constipation, no abdominal pain Musculoskeletal: no back pain, no shoulder pain, no hip pain, no knee pain All other review of systems are negative. Active Medications: Current Scheduled Medications[1] Current Continuous Medications[2] Current PRN Medications[3] Objective: Visit Vitals BP 110/58 Pulse 85 Temp 36.8 ??C (98.2 ??F) (Oral) Resp 18 Ht 1.626 m (5' 4 ) Wt 66.7 kg (147 lb) SpO2 100% BMI 25.23 kg/m?? OB Status Smoking Status Never BSA 1.74 m?? Physical Exam: General: AOx3, no acute distress, well-nourished Cardiovascular: regular s1/s2, no murmurs, no JVD, no lower extremity edema Pulmonary: clear, no crackles, no wheezes, non-labored Abdom: normal bowel sounds, soft, non-tender, non-distended Muskuloskeletal: full RoM in BUE, full RoM in Knees, full RoM in Hips Dermatologic: no rashes, no lesions, no ulcers Labs: Lab Results Component Value Date NA 137 10/19/2024 K 4.3 10/19/2024 CL 108 (H) 10/19/2024 CO2 20 (L) 10/19/2024 BUN 4 (L) 10/19/2024 CREATININE 0.61 10/19/2024 ALT 48 (H) 10/19/2024 AST 35 10/19/2024 Lab Results Component Value Date WBC 10.63 (H) 10/17/2024 HGB 9.7 (L) 10/17/2024 PLT 185 10/17/2024 MCV 88 10/17/2024 ASSESSMENT/PLAN: Whitney Presley: 34yo female PMHx -related hyperaldosteronism, cardiac arrest in thesetting of severe hypokalemia with prior admitted for chest pain, severe electrolyte abnormalities #) Hypokalemia #) Hypomagnesemia #) Secondary Hyperaldosteronism Her electrolyte abnormalities have happened on previous pregnancies, usually during the second and third trimerster. They do not happen when she is not . She was taking daily PO potassium 240mEq and PO magnesium 1600mg in addition to the IV replacement she receives every other day. She says she has been diagnosed with Hyperaldo, but her BP is not high (although may counteract that). She also is not terribly alkalotic, which seems odd in a hyperaldo state Her Urine Fractional Excretion of Potassium is 11% based on 24hr Urine. This is slightly high (somepapers put a max around 9%) Her Urine Magnesium is quite high, at 668, over 19% (the online calc will not let me enter her trueurine Mg. A low Mg can cause urine K loss, so this may be a primary Mg problem. Traditional treatments (MRA inhiboritors) and less-traditional treatments (aliskiren) are not safe in . /Plan: - Magnesium oxide 400mg BID, potassium chloride 40mEq TID with additional IV replacement of both K and Mg - continue telemetry monitoring - Check AM Julita and Renin (pending) - 24hr Urine Julita (pending, it's a sendout) #) -Related Dyspnea #) -Related Chest Pressure TTE showed no valvular or functional abnormalities Patient care included the following components: Complexity: a severe exacerbation or progression of 1 or more chronic illnesses or with side effects of treatment Data: Review of at least three lab results: inflammatory markers (WBC, CRP, Procal), renal functionmarkers (Creatinine, BUN, potassium), electrolyte levels (Potassium, Magnesium, Phos, Calcium) Data: Discussion of management with other physicians Santos Herrmann MD PhD Division of Hospital Medicine [phone] [1] azithromycin, 500 mg, Intravenous, Once in OR baclofen, 10 mg, Oral, TID ceFAZolin, 2 g, Intravenous, Once in OR ferrous sulfate, 324 mg, Oral, Daily with breakfast magnesium oxide, 800 mg, Oral, BID magnesium sulfate, 2 g, Intravenous, Once multivitamin , 1 tablet, Oral, Daily mupirocin, 1 Application, Each Nostril, BID pantoprazole, 40 mg, Intravenous, Daily potassium & sodium phosphates, 2 packet, Oral, With meals & nightly potassium chloride, 40 mEq, Oral, TID sodium citrate-citric acid, 30 mL, Oral, Once in OR sucralfate, 1 g, Oral, Before meals & nightly traZODone, 50 mg, Oral, Daily ursodiol, 300 mg, Oral, TID [2] dextrose 5 % and lactated Ringer's, 75 mL/hr, Last Rate: 75 mL/hr (10/18/24 1025) [3] PRN medications: acetaminophen, calcium carbonate, famotidine OR famotidine PF, hydrOXYzinepamoate, magic mouthwash diphen/lido/wfwf-jtv-odptih, melatonin, ondansetron ODT OR ondansetronOR ondansetron, prochlorperazine, promethazine, Insert peripheral IV AND Saline lock IV AN D sodium chloride, terbutaline * Sybil Real RN - 10/20/2024 9:51 AM EDT Images from the original note were not included. [id number] Hypokalemia Hypokalemia means a low level of potassium in the blood. This most often occurs in people who take water pills (diuretics). It can also result from severe vomiting or diarrhea. You may also have it if you take laxatives for long periods of time. It sometimes happens if you have low magnesium (hypoma gnesemia). If you have this, your healthcare provider will treat the low magnesium first. A mild case of hypokalemia often causes no symptoms. It is only found with blood testing. More severe potassium loss causes: ? Overall weakness ? Muscle or stomach cramps ? Rapid or irregular heartbeats (heart palpitations) ? Low blood pressure ? Muscle weakness ? Short-term paralysis in some people Home care ? Take any potassium supplements as prescribed. ? Eat foods rich in potassium. High amounts of potassium are found in baked potatoes, baked sweet potatoes, spinach, cantaloupe, cod, halibut, salmon, and scallops. White, red, or watson beans are also very good sources. So are avocados, orange juice, bananas, and tomato juice. ? If you take certain types of diuretics, you will also need to take potassium supplements. Talk with your healthcare provider. Follow-up care Follow up with your healthcare provider for a repeat blood test within the next week, or as advisedby our staff. When to get medical advice Call your healthcare provider right away if you have: ? Increased weakness, fatigue, or muscle cramps ? Dizziness Call 911 Call 911 if you have: ? Irregular heartbeat, extra beats, or very fast heart rate ? Loss of consciousness Last Reviewed Date: 2022 00:00:00 ?? [id number] [employer]. All rights reserved. This information is not intended as a substitute for professional medical care. Always follow your healthcare professional's instructions. * Caleb ZieglerCHIRAG - Sybil Lockett RN - 10/20/2024 9:51 AM EDT Images from the original note were not included. 248 Important OB Phone Numbers If you have any questions or concerns or think you may need to be seen by a doctor, call the officein which you have been seen during normal business hours, Monday through Monday. If you have a question after 4:30 p.m., on a weekend, or holiday that cannot wait until the following day, you may call the Birthing Center (Triage) and ask to speak with a nurse. The Birthing Center (Triage) [facility] [address] [place] [address] [facility] Medical Office Building [address] [facility], [address] [place] [address] [facility] [address] [place] [address] Family Practice [address], Third Floor [address] [place] [address] [facility] [address] [place] [address] [facility] Obstetrics & Gynecology [place] [address] [place] [address] [facility] Obstetrics & Gynecology [place] [address] [place] [address] * Discharge Summary - Shazia Booker MD - 10/20/2024 9:50 AM EDT Images from the original note were not included. Hospitalization Admit Date/Time: 10/17/2024 3:47 PM Admitting Attending: Hilton Montelongo Discharge Date: 10/20/2024 Discharge Attending Physician: Laury Cruz MD PCP name and Address: Norma Friedman, [facility] [address] [facility] [address] Referring provider name and address: No referring provider defined for this encounter. Chief Concern, Brief History of Present Illness, and Hospital Course Whitney Presley is a 34 y.o. at 33w4d (12/01/2024) who presented with shortness of breath and chest pain. States that she went to see MFM today and she had an US and failed her BPP and had a non-reactive NST. She also has a complicated past medical history during this in whichshe follows with M, cardiology, and nephrology. 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 Patient was admitted for monitoring and further work-up. She was found to have electrolyte derangements in which her potassium was found to be 2.5 and 1.4 magnesium. Cardiology and hospital medicine was consulted for further management. Electrolytes were repleted and cardiology work-up was within normal limits. Gastroenterology was consulted as patient reports dysphagia but eventually declined barium swallow given it could not be completed over the weekend and patient did not want to remain inpatient. At discharge, patient was stable and electrolytes were within normal limits. Patient was discharged home with appointment with Dr. Gipson on 10/24. Surgeries and Procedures Procedures performed in this encounter Procedures nonstress test Medication List .. cyclobenzaprine 5 MG tablet Commonly known as: Flexeril Take 1 tablet by mouth 3 times a day. FeroSul 325 (65 Fe) MG tablet Generic drug: ferrous sulfate Take 1 tablet by mouth daily. hydrOXYzine pamoate 25 MG capsule Commonly known as: Vistaril Take 1 capsule by mouth every 6 hours as needed for anxiety. magnesium oxide 400 (240 Mg) MG tablet Commonly known as: Mag-Ox Take 2 tablets by mouth 2 times a day. polyethylene glycol 17 GM/SCOOP powder Commonly known as: Miralax Take 17 g by mouth 2 times a day. * potassium chloride CR 20 MEQ ER tablet Commonly known as: K-Tab Take 2 tablets by mouth every 4 hours. Do not crush, chew, or split. * potassium chloride 20 MEQ/100ML IVPB Infuse 400 mL into a venous catheter every other day. Given 80-100 mEq every other day. COMPLETE PO promethazine 12.5 MG tablet Commonly known as: Phenergan Take 1 tablet by mouth 3 times a day. thiamine 100 MG tablet Commonly known as: Vitamin B-1 Take 1 tablet by mouth 1 time each day. ursodiol 300 MG capsule Commonly known as: Actigall Take 1 capsule by mouth 2 times a day. * This list has 2 medication(s) that are the same as other medications prescribed for you. Read thedirections carefully, and ask your doctor or other care provider to review them with you. Where to Get Your Medications These medications were sent to [facility] - [place], [place] - [address] [facility] [id number] cyclobenzaprine 5 MG tablet hydrOXYzine pamoate 25 MG capsule Discharge Diagnosis Medical Problems Active and Resolved Hospital Problems Hospital * (Principal) Hypokalemia Electrolyte abnormality Post Discharge Instructions Discharge home with return precautions for fever greater than 100.4, vaginal bleeding > 1pad/hr,leaking of fluid, contractions every 3-5 min for an hour or longer, uncontrolled pain, nausea/vomiting Outpatient Follow-Up Future Appointments Date Time Provider Department Center 10/24/2024 8:00 AM Nneka Block MD [facility] 10/24/2024 9:45 AM Nneka Gipson MD [facility] 12/25/2024 1:00 PM ([facility] Test Results Pending At Discharge Pending Labs Order Current Status Aldosterone In process Aldosterone, urine, 24 hour In process Cytomegalovirus (CMV) Quantitative PCR In process Brooke Mejias Virus (EBV) Quantitative PCR In process Herpes Simplex Virus by PCR (Serum) In process Plasma Renin Activity (LC/MS/MS) In process Pertinent Physical Exam At Time of Discharge Physical Exam Cardiovascular: Rate and Rhythm: Normal rate. Pulses: Normal pulses. Pulmonary: Effort: Pulmonary effort is normal. Neurological: Mental Status: She is alert and oriented to person, place, and time. Discharge Disposition/Condition Disposition: Home Condition: Stable (s/sx potential problems absent or manageable) I spent < 30 minutes of patient care and instruction time in preparation for this discharge. Cosigned by Laury Cruz MD at 10/20/2024 2:21 PM EDT Associated attestation - Laury Cruz MD - 10/20/2024 2:21 PM EDT I saw and evaluated the patient. I discussed the case with the resident/fellow and agree with the findings and plan as documented. Whitney was on telemetry secondary to arrhythmia (bigeminy, frequent PVCs) likely due to electrolyte derangements which were repleeted. Reassuring status upon discharge. Will schedule delivery at [facility] visit this week. Given the persistent and worsening electrolyteabnormalities resulting in cardiac arrhythmias despite aggressive IV and PO supplementation, it would be reasonable to move toward delivery sooner then previously planned. * Sybil Real RN - 10/20/2024 9:50 AM EDT Images from the original note were not included. [id number] About Arrhythmias Your heart beats about 60 to 100 times a minute while at rest. Each beat sends blood through the heart and out to your body. An arrhythmia is a change from the normal speed or pattern of your pulse. Your heart may beat too fast, too slow, or unsteadily. Symptoms of arrhythmias Arrhythmias affect different people in different ways. And arrhythmias can cause different symptoms. Sometimes you may not have symptoms, but you just notice a change in your pulse. Symptoms can include: ? Palpitations. This is the sense that your heart is fluttering or beating fast or hard or irregularly. ? Shortness of breath. ? Chest pain or pressure. ? Neck fullness. ? Feeling lightheaded or dizzy, or fainting. ? Feeling tired, fatigued, or weak. ? Cardiac arrest, and , in serious arrhythmias. Causes of arrhythmias Arrhythmias can be caused by heart disease, such as: ? Coronary artery disease ( blocked arteries ). ? Heart valve disease. ? Enlarged heart. ? High blood pressure. ? Heart failure. Other causes include: ? Older age (most common). ? Some medicines, such as asthma inhalers and decongestants. ? Some herbal supplements. ? Drugs and medicines that stimulate the heart. These include cocaine, amphetamines, diet pills, some decongestant cold medicines, caffeine, and nicotine. ? Heavy use of alcohol. ? Anxiety and panic disorder. ? Thyroid disease. ? Anemia. ? Diabetes. ? Sleep apnea. ? Obesity. ? Heart disease since (congenital). ? Heart diseases passed down through families. ? Electrolyte imbalance. Electrolytes are substances that help regulate normal heartbeat. High or low levels of certain electrolytes such as potassium or magnesium may lead to arrhythmia. Some arrhythmias can be prevented. The cause and type of arrhythmia determines the best treatment. Your health care provider may want to track your heart rate over 24 hours or longer. This can help find the cause of your arrhythmia and the best treatment. Your provider may use a Holter monitor. This is a portable recording device attached to your chest. Or you may get an event monitor, which records heart rhythms. You can carry this with you as you go about your daily routine. Some of these monitors can record your heart rhythm for up to 4 weeks. You may also have an implantable loop recorder. This can record your heart rhythm for up to 5 years. This tiny device goes under the skin over your heart. Home care To help you care for yourself at home: ? Stay away from heart stimulants. These include cocaine, amphetamine, diet pills, some decongestant cold medicines, caffeine, and nicotine. ? Do not smoke. If you need help quitting, talk to your health care provider. ? Tell your provider about any medicines you take. These may be affecting your heart rhythm. Follow-up care Follow up with your provider. If you're getting a Holter monitor, contact the doctor as soon as youcan to orange picker the device. You may have other tests at that time. Call 911 Calling 911 is the fastest and safest way to get to the emergency room. The paramedics can start treatment on the way to the hospital, if needed. Don't wait until your symptoms are severe to call 911. Call 911 if: ? You have chest pain that spreads to your shoulder, arm, neck, or back. ? You are short of breath. ? You feel lightheaded, faint, or dizzy. ? You have unexplained fainting. ? Your heartbeat is faster or slower than normal. ? Your heartbeat is very irregular. ? You have chest pain with weakness, dizziness, heavy sweating, nausea, or vomiting. ? You feel extremely drowsy or confused. ? You have weakness in an arm or leg or one side of your face. ? You have trouble with speech or vision. When to get medical advice ? Get help for chest pain or if something feels off, even if your symptoms are mild. ? Don't drive yourself. Have someone else drive. If no one can drive you, call 911. ? If your provider gave you medicines to take when you have symptoms, take them, but don't delay getting help while trying to find them. Last Reviewed Date: 2023 00:00:00 ?? [id number] [employer]. All rights reserved. This information is not intended as a substitute for professional medical care. Always follow your healthcare professional's instructions. * Caleb Leonardo - Sybil Lockett RN - 10/20/2024 9:50 AM EDT Images from the original note were not included. electrolytes Electrolytes Does this test have other names? Electrolyte panel, Lytes, sodium (Na), potassium (K), chloride (Cl), bicarbonate (HCO3) What is this test? This test measures the main electrolytes in your body. These are sodium, chloride, potassium, and carbon dioxide. The cells in your body carefully balance fluids and electrolytes. Electrolytes are electrically-charged minerals. Electrolytes move fluid in and out of your cells. They carry nutrients into the cellsand waste products back out. They help keep your water level normal and your pH level stable. They help the acids and bases in your blood stay in balance. Electrolytes in blood and tissues are in the form of salts. You get electrolytes from the food you eat and fluids you drink. Why do I need this test? You may need this test if you feel confused, nauseated, and weak. These are often signs that your body's electrolytes may be out of balance. If you are in the hospital, your healthcare provider may order an electrolyte panel to help make a diagnosis or rule out other problems. You may also need this test if your healthcare provider wants to keep track of your treatment for another condition. For example, heart failure can cause an electrolyte imbalance. People in the hospital for heart failure may have this test to see if treatment isworking. You may also have this test if you have: ? Diarrhea ? Vomiting ? Fatigue ? Dizziness ? Weakness ? Diabetes ? Heart disease ? Nerve damage ? Muscle problems ? Cancer treatment ? Chronic kidney disease You may also have your electrolytes tested if you're taking diuretics or other medicines that causeyou to urinate more often. You may also have this test if you collapse while playing sports or exercising, or if you are in the hospital for a heat-related illness. You lose electrolytes as you sweat. So if you are dehydrated from sports or heat, this can lead to an unsafe electrolyte imbalance. What other tests might I have along with this test? You may also have a urine test for chloride, a blood test for glucose, or a basic urinalysis. If you've had a heart attack, you may have an electrocardiogram (ECG) along with an electrolyte test. Youmay have other blood tests to see how well your kidneys are working. What do my test results mean? Test results may vary depending on your age, gender, health history, and other things. Your test results may be different depending on the lab used. They may not mean you have a problem. Ask your healthcare provider what your test results mean for you. Each part of an electrolyte panel checks for a different electrolyte. Results differ depending on your age and health. Results are given in milliequivalents per liter (mEq/L). Here are the normal ranges for each type of electrolyte in blood: Potassium (K) ? Adults: 3.5 to 5 mEq/L ? Children: 3.4 to 4.7 mEq/L ? Babies: 4.1 to 5.3 mEq/L ? Newborns (0-7 days old): 3.7 to 5.9 mEq/L If your potassium levels are too high or too low, you may be in danger of shock or a dangerous heart rhythm. Chloride (Cl) ? Adults: 96 to 106 mEq/L ? Newborns: 96 to 113 mEq/L Sodium (Na) ? Adults: 136 to 145 mEq/L ? Children: 136 to 145 mEq/L ? Premature babies: 132 to 140 mEq/L ? Full-term babies: 133 to 142 mEq/L Bicarbonate (HCO3) ? Adults: 23 to 28 mEq/L ? Children (2-10 years): 17 to 30 mEq/L How is this test done? Your electrolytes can be checked with either a blood or urine test. The blood test is done with a blood sample. A needle is used to draw blood from a vein in your arm or hand. For a urine test, you provide a urine sample in a specimen container. Does this test pose any risks? Having a blood test with a needle has some risks. These include bleeding, infection, bruising, and feeling lightheaded. When the needle pricks your arm or hand, you may feel a slight sting or pain. Afterward, the site may be sore. A urine test has no known risks. What might affect my test results? The amount of fluid you drink or lose can affect your test results. Results can also be affected byvomiting, diarrhea, or sweating a lot from exercise. Some medicines, such as those used to lower high blood pressure or reduce stomach acid, can cause electrolyte problems. How do I get ready for this test? Ask your healthcare provider if you need to stop eating certain foods or taking certain medicines before this test. Tell your healthcare provider about all medicines, herbs, vitamins, and supplementsyou are taking. This includes medicines that don't need a prescription and any illegal drugs you may use. Last Reviewed Date: 2021 00:00:00 ?? [id number] [employer]. All rights reserved. This information is not intended as a substitute for professional medical care. Always follow your healthcare professional's instructions. * Hospital Course - Shazia Booker MD - 10/20/2024 9:50 AM EDT Whitney Presley is a 34 y.o. at 33w4d (12/01/2024) who presented with shortness of breath and chest pain. States that she went to see MFM today and she had an US and failed her BPP and had a non-reactive NST. She also has a complicated past medical history during this in whichshe follows with MFM, cardiology, and nephrology. 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 Patient was admitted for monitoring and further work-up. She was found to have electrolyte derangements in which her potassium was found to be 2.5 and 1.4 magnesium. Cardiology and hospital medicine was consulted for further management. Electrolytes were repleted and cardiology work-up was within normal limits. Gastroenterology was consulted as patient reports dysphagia but eventually declined barium swallow given it could not be completed over the weekend and patient did not want to remain inpatient. At discharge, patient was stable and electrolytes were within normal limits. Patient was discharged home with appointment with Dr. Gipson on 10/24. * Progress Notes - Susi Wren MD - 10/20/2024 7:34 AM EDT Maternal Medicine Progress Note Subjective Patient continues to complain of severe epigastric and esophageal pain that feels like a sharp stabbing in her throat. She reports that it has prevented her from getting any sleep overnight, and has effectively limited her PO intake to zero as she states it is too painful to swallow. Denies fever, chills, SOA, chest pain, nausea/vomiting. REVIEW OF SYSTEMS 10-point review of systems was performed and negative except as stated in HPI. Objective Temp: [36.4 ??C (97.5 ??F)-36.9 ??C (98.5 ??F)] 36.4 ??C (97.5 ??F) Heart Rate: [66-96] 86 Resp: [18] 18 BP: (86-108)/(47-70) 108/54 Vitals: 10/20/24 0340 BP: 108/54 Pulse: 86 Resp: Temp: 36.4 ??C (97.5 ??F) SpO2: I/O last 3 completed shifts: In: 0 (0 mL/kg) Out: 450 (6.7 mL/kg) [Urine:450 (0.2 mL/kg/hr)] Weight: 66.7 kg GENERAL: Alert, well-appearing, in NAD CARDIOVASCULAR: Normal rate. No peripheral edema. RESPIRATORY: Normal respiratory effort on room air GASTROINTESTINAL: Soft, gravid, mildly tender, no rebound or guarding. GENITOURINARY: Deferred SKIN: Warm, dry, well-perfused. PSYCHIATRIC: AO x3, with appropriate affect, normal thought processes EXTREMITIES: Symmetric. No peripheral edema. Lab Results Component Value Date WBC 10.63 (H) 10/17/2024 RBC 3.27 (L) 10/17/2024 HGB 9.7 (L) 10/17/2024 HCT 28.7 (L) 10/17/2024 PLT 185 10/17/2024 MCV 88 10/17/2024 MCH 29.7 10/17/2024 MCHC 33.8 10/17/2024 RDW 15.8 (H) 10/17/2024 MPV 12.3 10/17/2024 NRBC 0.0 10/17/2024 Lab Results Component Value Date URATECRYU 10.1 (H) 10/17/2024 CREATININE 0.61 10/19/2024 EGFR 121.2 10/19/2024 ALT 48 (H) 10/19/2024 AST 35 10/19/2024 LDH 267 (H) 10/17/2024 NST: pending Assessment/Plan 34 yo at 34w0d admitted after presentation for chest pain/SOA with significant electrolyte derangements in the setting of hyperaldosteronism/RTA. 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 - Currently managed by internal medicine provider at OSH, has seen Nephrology at for consult as well - Currently receiving 160 mEq potassium every other day at outside hospital with PO repletion of magnesium and potassium daily - Reports last infusion 10/16 prior to admission - Significant electrolyte disturbances on admission including potassium of 2.5 and magnesium of 1.4 - Generalized symptoms including N/V, SOA, tingling as described below - S/p weigh in by Nephrology on repletion plan PLAN: - Telemetry monitoring due to electrolyte disturbances - Trend BMP, electrolytes with repletion as indicated - HM consulted, recommendations appreciated > Magnesium oxide 400 mg BID + potassium chloride 40 mEq TID w/ additional IV replacement of both K and Mg > Check AM Julita and Renin (in process) > 24hr urine aldosterone (pending) # Epigastric Pain - Patient reporting long history of GERD with recently diagnosed hiatal hernia - Patient describes her current pain as a sharp/stabbing sensation in her stomach and a globus sensation/inability to swallow without pain - Patient with limited to no PO intake 2/2 pain Plan: - Continue PPI, pepcid; carafate for symptomatic support - GI consulted, recommendations appreciated: > Continue PPI, carafate > Add baclofen > Obtain RUQ US given mildly elevated transaminases on admission > Check CMV/EBV/HSV PCRs > Consider barium study if safe in # Tachycardia # Frequent PAC's - Seen by Dr. Block with Cardiology 09/26 - Reports history of tachycardia and arrhythmias during hospitalizations of electrolyte disturbances PLAN: - Cards: tele, replete electrolytes - Telemetry as above # Chest pain # Dyspnea - Endorses chest pressure with shortness of air - Episodic dizziness - Symptoms similar to prior episodes of electrolyte abnormalities - Trop and BNP WNL - D-dimer 2.33 - Vitals normal on arrival - EKG w/ sinus tach with PACs - Repeat EKG w/ sinus rhythm with PACs - Symptoms improved overnight # ICP - Bile acids 14 10/03 - On ursodiol at home - LFTs elevated increased at 93/82; awaiting morning labs # FGR - FGR diagnosed at OSH by US 10/14 by EFW 9% - Updated growth obtained 10/17 with AC 1%, EFW 15% - ANCS 10/11-10/12 # Status - Non-reactive NST in clinic today - Sent for BPP which was 07/14 off for breathing - Non-reactive tracing while in OB ED - Repeat BPP 10/18 # Prior C/S x1 - prior c/s for bradycardia - x2, x2 - Consented for TOLAC # Desires sterilization - KMA signed in clinic 09/23 and in media tab # contractions - painful contractions yesterday evening - CE /-3, unchanged over two checks - Start GBS prophylaxis if making cervical change DISPO: Continue inpatient management. For any questions or concerns regarding this patient's care, please call OB resident workroom at #[phone]. Susi Wren MD PGY3 Obstetrics and Gynecology Cosigned by Laury Cruz MD at 10/20/2024 11:04 AM EDT Associated attestation - Laury Cruz MD - 10/20/2024 11:04 AM EDT I saw and evaluated the patient with the resident/fellow. I discussed the case with the resident/fellow and agree with the findings and plan as documented. * Nursing Note - Kelly Sanabria RN - 10/19/2024 11:20 PM EDT Patient had magnesium, potassium chloride and ursodiol ordered for 2100. Once RN talked with patient, she stated that her day shift nurse left the medication in a medication cup for her to take when she could. Patient told Morena Sanabria RN that she took all those medications around 2029. RN messaged pharmacy as well as talked to Morena Wren MD about the situation. MD notified RN to hold 2100 medications and we could continue to trend her labs. * Nursing Note - Ira Merida RN - 10/19/2024 9:04 PM EDT Remote Telemetry Nursing Note Event Type: Routine rounds Heart Rate of 94 Sinus Rhythm S1/S2: Audible Patient Condition: Telemetry Status Stable Patient Disposition: Remains on remote telemetry Patient alert and in bed. She continues to c/o CP described as sharp pressure. She states if she takes a deep breath it is painful and makes her cough. She rates her pain a 10/10. She feels palpitations/pauses. She denies dizziness. Respirations even and unlabored. Bilateral breath sounds present and clear. Leads intact. Batteries changed. [id number]. Will continue to monitor. Vitals: 10/19/24 1735 BP: 104/62 Pulse: 88 Resp: Temp: SpO2: * Progress Notes - Santos Herrmann MD - 10/19/2024 3:56 PM EDT Subjective: No acute events overnight Review of Systems: Constitutional: no fevers, no weakness, no weight loss, normal appetite Cardiovascular: + chest pain, no palpitations, no edema Respiratory: + shortness of breath, no cough Gastrointestinal: + nausea, no vomiting, no diarrhea, no constipation, no abdominal pain Musculoskeletal: no back pain, no shoulder pain, no hip pain, no knee pain All other review of systems are negative. Active Medications: Current Scheduled Medications[1] Current Continuous Medications[2] Current PRN Medications[3] Objective: Visit Vitals BP 106/64 Pulse 86 Temp 36.9 ??C (98.5 ??F) (Oral) Resp 18 Ht 1.626 m (5' 4 ) Wt 66.7 kg (147 lb) SpO2 100% BMI 25.23 kg/m?? OB Status Smoking Status Never BSA 1.74 m?? Physical Exam: General: AOx3, no acute distress, well-nourished Cardiovascular: regular s1/s2, no murmurs, no JVD, no lower extremity edema Pulmonary: clear, no crackles, no wheezes, non-labored Abdom: normal bowel sounds, soft, non-tender, non-distended Muskuloskeletal: full RoM in BUE, full RoM in Knees, full RoM in Hips Dermatologic: no rashes, no lesions, no ulcers Labs: Lab Results Component Value Date NA 139 10/19/2024 K 3.5 (L) 10/19/2024 CL 105 10/19/2024 CO2 24 10/19/2024 BUN 6 (L) 10/19/2024 CREATININE 0.60 10/19/2024 ALT 76 (H) 10/17/2024 AST 69 (H) 10/17/2024 Lab Results Component Value Date WBC 10.63 (H) 10/17/2024 HGB 9.7 (L) 10/17/2024 PLT 185 10/17/2024 MCV 88 10/17/2024 ASSESSMENT/PLAN: Whitney Presley: 34yo female PMHx -related hyperaldosteronism, cardiac arrest in thesetting of severe hypokalemia with prior admitted for chest pain, severe electrolyte abnormalities #) Hypokalemia #) Hypomagnesemia #) Secondary Hyperaldosteronism Her electrolyte abnormalities have happened on previous pregnancies, usually during the second and third trimerster. They do not happen when she is not . She was taking daily PO potassium 240mEq and PO magnesium 1600mg in addition to the IV replacement she receives every other day. She says she has been diagnosed with Hyperaldo, but her BP is not high (although may counteract that). She also is not terribly alkalotic, which seems odd in a hyperaldo state Her Urine Fractional Excretion of Potassium is 11% based on 24hr Urine. This is slightly high (somepapers put a max around 9%) Her Urine Magnesium is quite high, at 668, over 19% (the online calc will not let me enter her trueurine Mg. A low Mg can cause urine K loss, so this may be a primary Mg problem. Traditional treatments (MRA inhiboritors) and less-traditional treatments (aliskiren) are not safe in . /Plan: - Magnesium oxide 400mg BID, potassium chloride 40mEq TID with additional IV replacement of both K and Mg - continue telemetry monitoring - Check AM Julita and Renin (pending) - 24hr Urine Julita (pending, it's a sendout) #) -Related Dyspnea #) -Related Chest Pressure TTE showed no valvular or functional abnormalities Santos Herrmann MD PhD Division of [facility] Medicine [phone] [1] azithromycin, 500 mg, Intravenous, Once in OR ceFAZolin, 2 g, Intravenous, Once in OR ferrous sulfate, 324 mg, Oral, Daily with breakfast magnesium oxide, 800 mg, Oral, BID multivitamin , 1 tablet, Oral, Daily mupirocin, 1 Application, Each Nostril, BID pantoprazole, 40 mg, Oral, Daily potassium & sodium phosphates, 2 packet, Oral, With meals & nightly potassium chloride, 40 mEq, Oral, TID potassium chloride, 10 mEq, Intravenous, q1h sodium citrate-citric acid, 30 mL, Oral, Once in OR sucralfate, 1 g, Oral, Before meals & nightly ursodiol, 300 mg, Oral, TID [2] dextrose 5 % and lactated Ringer's, 75 mL/hr, Last Rate: 75 mL/hr (10/18/24 1025) [3] PRN medications: acetaminophen, calcium carbonate, cyclobenzaprine, famotidine OR famotidine PF, hydrOXYzine pamoate, melatonin, ondansetron ODT OR ondansetron OR ondansetron, prochlorperazine, promethazine, Insert peripheral IV AND Saline lock IV AND sodium chloride, terbutaline * Nursing Note - Corina Ramon RN - 10/19/2024 3:28 PM EDT Remote Telemetry Nursing Note Event Type: Routine rounds Heart Rate: 82 Rhythm: NSR S1/S2: Audible Pt continues to have chest pressure, palpitations, and dizziness on standing. Denies SOA. Resp effort unlabored. Breath sounds clear bilaterally. On room air Patient Condition: Telemetry Status Stable. Patient on remote telemetry box [id number]. Has good signal and function. Lead placement corrected. Battery level sufficient. Patient Disposition: Pt now appropriate for remote telemetry monitoring. Order changed * Care Plan - Brandee Cross RN - 10/19/2024 11:05 AM EDT Problem: Adult Inpatient Plan of Care Goal: Plan of Care Review Outcome: Ongoing, Progressing Flowsheets Taken 10/18/2024 1743 by Tex Harman RN Progress: improving Taken 10/18/2024 0302 by Orlin Jimenez RN Plan of Care Reviewed With: patient Goal: Patient-Specific Goal (Individualized) Outcome: Ongoing, Progressing Flowsheets (Taken 10/19/2024 0915) Patient/Family-Specific Goals (Include Timeframe): Pt will be able to eat at least half of meals byend of shift or be assessed for nutritional supplementation as needed Individualized Care Needs: Monitoring for signs of electrolyte imbalances Anxieties, Fears or Concerns: Maintainence of electrolyte levels at home Goal: Absence of Hospital-Acquired Illness or Injury Outcome: Ongoing, Progressing Intervention: Identify and Manage Fall Risk Flowsheets (Taken 10/19/2024 1100) Safety Promotion/Fall Prevention: clutter-free environment maintained room organization consistent safety round/check completed Intervention: Prevent and Manage VTE (Venous Thromboembolism) Risk Flowsheets (Taken 10/19/2024 1100) VTE Prevention/Management: SCDs (sequential compression devices) on Goal: Optimal Comfort and Wellbeing Outcome: Ongoing, Progressing Problem: Hospitalized Patient Goal: Optimal Patient- Wellbeing Outcome: Ongoing, Progressing Intervention: Support Psychosocial Response Flowsheets (Taken 10/19/2024 1100) Supportive Measures: self-care encouraged Family/Support System Care: caregiver stress acknowledged Problem: Infection Goal: Absence of Infection Signs and Symptoms Outcome: Ongoing, Progressing Intervention: Prevent or Manage Infection Flowsheets (Taken 10/19/2024 1100) Infection Management: aseptic technique maintained * Significant Event - Kush Diamond DO - 10/19/2024 10:40 AM EDT Whitney Presley is a 34 y.o. female currently 33w with a past medical history of -related electrolyte derangements with resultant cardiac complications who presented to the on 10/17 for SOB and chest discomfort. . Nephrology consulted for electrolyte derangements. Patient's electrolytes have largely been stable with replacement. Would continue with replacement as previously prescribed. Nephrology will continue to monitor labs and follow along. Recommendations and Plan: -Agree with continued aggressive electrolyte replacement with IV potassium, magnesium, phosphorus, in addition, to PO supplements as ordered -labs pending Julita/Renin, 24 urine -- Unfortunately with limited options at this time (as unable to add potassium sparing medications due to ) Will plan to re-evaluate after delivery if symptoms persist (reports after delivery symptoms have resolved in past) * Consults - Elvis Kay MD - 10/19/2024 10:27 AM EDTAssociated Order(s): IP CONSULT TO GASTROENTEROLOGY Inpatient Gastroenterology, Hepatology and Nutrition Initial Consultation Note: Patient: Whitney Presley Date of : 1990 Room: L&D 323/[facility] Reason for consultation: Epigastric pain Subjective: History of present illness: Ms. Whitney Presley is a 34 y.o. year old female admitted on 10/17/2024 for chief complaint of Hypokalemia [E87.6] Electrolyte abnormality [E87.8]. The inpatient gastroenterology, hepatology and nutrition team was asked to see her in consultation for epigastric pain. 34 y.o. female currently 33w with a past medical history of -related electrolyte derangements with resultant cardiac complications including PACs and PVCs who presented to the on 10/17 for SOB and chest discomfort. Nephrology a nd Cardiology has been following. Concern for RTA/hyper aldosteronism. Patient reports worsening dysphagia to solid and liquid over the last few weeks with inadequate by mouth intake. She also reportpain with eating. Pain is localized to epigastric and chest area. She states she had history of hiatal hernia on prior EGDs( not last one). She denied any melena or hematemesis. Labs: ALT 93> 76 AST 82> 69 normal bilirubin and alkaline phosphatase EGD 08/2024: normal esophagus and duodenum. Gastric erosions in body. No mention of hiatal hernia Path: Stomach, antrum, biopsy: Gastric antral type mucosa with moderate chronic inactive gastritis Immunohistochemical stain for H. pylori is negative (no organisms are identified) Negative for intestinal metaplasia, dysplasia, or malignancy Review of Systems: 14 point ROS reviewed and negative except as in HPI Past Medical History[1] Surgical History[2] Family History[3] Family history reviewed and non-contributory Social History[4] Allergies[5] Current Medications[6] Objective: Temp: [36.6 ??C (97.8 ??F)-37.1 ??C (98.7 ??F)] 36.6 ??C (97.8 ??F) Heart Rate: [80-118] 106 Resp: [12-18] 18 BP: (84-130)/(45-76) 103/45 Weight: 66.7 kg (147 lb) Body mass index is 25.23 kg/m??. Physical Examination: General Appearance: Awake, alert, oriented x 3, in no apparent distress Head: Normocephalic, atraumatic Eyes: non icteric Neck: Neck supple, no adenopathy. Lungs: normal resp efforts Heart: mildly tachycardia Abdomen: Abdomen soft, gravid uterus Neurologic: Mental status intact. No gross neurologic deficits. Laboratory: CBC WBC ?? Hb ?? Plt ?? Hct ?? INR ?? PTT ?? BMP Na 139 Cl 105 BUN 6 (L) Glu 88 K 3.5 (L) Co2 24 Cr 0.60 Mg 2.1; 2.1 Phos 3.3; 3.3 LFT AST ?? AlkPhos ?? T Prot ?? ALK ?? T Bili ?? Alb ?? Imaging: @IMAGES@ No results found for this or any previous visit. Assessment and Plan: Whitney Presley is a 34 y.o. year old female admitted on 10/17/2024 for chief complaint of Hypokalemia [E87.6] Electrolyte abnormality [E87.8]. The inpatient gastroenterology, hepatology and nutrition team was asked to see her in consultation for epigastric pain and dysphagia. 1) ??H/o Hiatal hernia 2) Epigastric pain 3) Elevated transaminases 4) Dysphagia/odynophagia RECOMMENDATIONS: - Agree with restarting PPI, carafate - Recommend to obtain RUQ US given mildly elevated transaminases ( new) and epigastric pain - Can consider barium swallow if no contraindication per primary team - No plan for endoscopic eval at this time - If no contraindication, can try baclofen instead of flexiril - Recommend to check CMV, EBVs, HSV PCRs - Further recs pending above tests Thank you for the opportunity to participate in this patient's care! Will continue to follow along with you. Patient seen by and discussed with Dr. Szymanski, gastroenterology, hepatology and nutrition attending physician. Elvis Kay MD GI Fellow, PGY-5 Pager: [phone] [1] Past Medical History: Diagnosis Date Maternal [...] TOOTH EXTRACTION N/A Oral Surgery Tooth Extraction [employer] Tooth from [employer] [3] Family History Problem Relation Name Age [...] Other Other Known health problems: none [4] Social History Tobacco Use Smoking status: Never Passive exposure: Never Smokeless tobacco: Never Vaping Use Vaping status: Never Used Substance Use Topics Alcohol use: Never Drug use: Never [5] Allergies Allergen Reactions Tobacco Other - please document in the comment field and Shortness of breath SOB when exposed to smoke, contact dermatitis with skin contact Peanuts [Peanut Allergen Powder-Dnfp] Hives [6] Current Facility-Administered Medications: acetaminophen (Tylenol) tablet 650 mg, 650 mg, Oral, q4h PRN, Chinyere Nieto MD, 650 mgat 10/17/242058 azithromycin (Zithromax) 500 mg in sodium chloride 0.9% 250 mL IVPB (vial adapter required), 500 mg, Intravenous, Once in OR, Chinyere Nieto MD calcium carbonate (Tums) chewable tablet 1,000 mg, 1,000 mg, Oral, 4x daily PRN, Chinyere Nieto MD ceFAZolin (Ancef) injection 2 g, 2 g, Intravenous, Once in OR, Chinyere Nieto MD cyclobenzaprine (Flexeril) tablet 5 mg, 5 mg, Oral, TID PRN, Chinyere Nieto MD, 5 mg at10/19/24 0121 dextrose 5 % and lactated Ringer's infusion, 75 mL/hr, Intravenous, Continuous, Ana Deal MD, Last Rate: 75 mL/hr at 10/18/24 1025, 75 mL/hr at 10/18/24 1025 famotidine (Pepcid) tablet 20 mg, 20 mg, Oral, BID PRN OR famotidine PF (Pepcid) injection 20 mg, 20 mg, Intravenous, BID PRN, Chinyere Nieto MD, 20 mg at 10/18/24 1002 ferrous sulfate EC tablet 324 mg, 324 mg, Oral, Daily with breakfast, Ana Deal MD, 324 mg at 10/19/24 0802 hydrOXYzine pamoate (Vistaril) capsule 25 mg, 25 mg, Oral, q6h PRN, Chinyere Nieto MD, 25 mg at 10/19/24 0122 magnesium oxide (Mag-Ox) tablet 800 mg, 800 mg, Oral, BID, Santos Herrmann MD, 800 mg at 10/19/24 08 melatonin tablet 3 mg, 3 mg, Oral, Nightly PRN, Chinyere Nieto MD, 3 mg at 10/19/24 012 multivitamin tablet 1 tablet, 1 tablet, Oral, Daily, Chinyere Nieto MD, 1 tablet at 10/19/24 08 mupirocin (Bactroban) 2 % ointment 1 Application, 1 Application, Each Nostril, BID, Ana Deal MD, 1 Application at 10/19/24 08 ondansetron ODT (Zofran-ODT) disintegrating tablet 4 mg, 4 mg, Oral, q6h PRN OR ondansetron (Zofran) injection 4 mg, 4 mg, Intravenous, q6h PRN OR ondansetron (Zofran) 4 MG/5ML solution 4 mg,4 mg, Oral, q6h PRN, Chinyere Nieto MD pantoprazole (Protonix) EC tablet 40 mg, 40 mg, Oral, Daily, Shazia Booker MD, 40 mg at 121 potassium & sodium phosphates (Phos-NaK) 280-160-250 MG packet 2 packet, 2 packet, Oral, With meals & nightly, Santos Herrmann MD, 2 packet at 10/18/24 211 potassium chloride CR (Klor-Con) ER tablet 40 mEq, 40 mEq, Oral, TID, Mo Guaman MD, 40 mEq at 10/19/24 08 potassium chloride IVPB 10 mEq, 10 mEq, Intravenous, q1h, Santos Herrmann MD, Last Rate: 100 mL/hr at 10/19/24 1010, 10 mEq at 10/19/24 1010 prochlorperazine (Compazine) injection 5 mg, 5 mg, Intravenous, q6h PRN, Chinyere Nieto MD, 5 mg at 10/18/24 1353 promethazine (Phenergan) tablet 12.5 mg, 12.5 mg, Oral, q6h PRN, Chinyere Nieto MD, 12.5 mg at 10/19/24 0121 Insert peripheral IV, , , Once AND Saline lock IV, , , Once AND sodium chloride 0.9 % flush3 mL, 3 mL, Intravenous, PRN, Chinyere Nieto MD sodium citrate-citric acid (Bicitra) 500-334 MG/5ML solution 30 mL, 30 mL, Oral, Once in OR, Chinyere Lyons MD sucralfate (Carafate) 1 GM/10ML suspension 1 g, 1 g, Oral, Before meals & nightly, Susi Wren MD terbutaline (Brethine) injection 0.25 mg, 0.25 mg, Subcutaneous, Once PRN, Chinyere Nieto MD ursodiol (Actigall) capsule 300 mg, 300 mg, Oral, TID, Chinyere Nieto MD, 300 mg at 10/19/24 0802 Cosigned by Brenda Szymanski DO at 10/19/2024 9:13 PM EDT Associated attestation - Brenda Szymanski DO - 10/19/2024 9:13 PM EDT I saw and evaluated the patient with the resident/fellow. I discussed the case with the resident/fellow and agree with the findings and plan as documented. * Progress Notes - Shazia Booker MD - 10/19/2024 3:23 AM EDT Maternal- Medicine PROGRESS NOTE S: Overnight, patient reported a sensation in her throat following valsalva while using there bathroom. She states that she has never felt it before and it describes it is similar to feeling full butonly with her throat. Patient doing well, without complaints. Good movement reported. Tolerating PO, denies nausea/vomiting. Denies fever/chills and chest pain/shortness of air. Denies vaginal bleeding, leaking of fluid, contractions. O: Temp: [36.6 ??C (97.8 ??F)-37.1 ??C (98.7 ??F)] 36.6 ??C (97.8 ??F) Heart Rate: [69-118] 106 Resp: [12-19] 18 BP: (84-130)/(45-76) 103/45 Body mass index is 25.23 kg/m??. PHYSICAL EXAM Constitutional: No acute distress, well appearing and well nourished. Neck: Neck symmetric, trachea midline, no visible masses/deformities. Cardiovascular: Normal rate and rhythm. No peripheral edema. Pulmonary: No increased work of breathing or signs of respiratory distress. Lungs clear to auscultation bilaterally. Breast: Deferred Gastrointestinal: Abdomen gravid, non-tender, no masses. Genitourinary: Deferred Neurologic: Alert and oriented. Moves all extremities equally. Skin: Skin and subcutaneous tissue were normal without rashes or lesions on exposed areas. Psychiatric: Mood and affect were normal. monitoring: Heart Rate Mode: External US Baseline Heart Rate: 135 bpm Baseline Classification: Normal Variability: Moderate (Between 6 and 25 BPM) Pattern: 10x10 accelerations, No decelerations Pattern Observations: partly minimal variabilty at times FHR Category: Category I Fetus A Comments: active movement per pt Multiple Births: No Uterine Activity Mode: [place] Contraction Frequency: one traced Contraction Duration: 140 sec Contraction Pattern: Tachysystole Contraction Quality: Mild Resting Tone Palpated: Non relaxed Contraction Comments: none tracing LABS Lab Results Component Value Date WBC 10.63 (H) 10/17/2024 HGB 9.7 (L) 10/17/2024 HCT 28.7 (L) 10/17/2024 MCV 88 10/17/2024 PLT 185 10/17/2024 Lab Results Component Value Date CREATININE 0.63 10/18/2024 A/P: 34 yo at 33w6 d admitted after presentation for chest pain/SOA with significant electrolytederangements in the setting of hyperaldosteronism/RTA. 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 - Currently managed by internal medicine provider at OSH, has seen Nephrology at for consult as well - Currently receiving 160 mEq potassium every other day at outside hospital with PO repletion of magnesium and potassium daily - Reports last infusion 10/16 prior to admission - Significant electrolyte disturbances on admission including potassium of 2.5 and magnesium of 1.4 - Generalized symptoms including N/V, SOA, tingling as described below PLAN: - Telemetry monitoring due to electrolyte disturbances - Trend BMP, electrolytes with repletion as indicated - Due to complexity of repletion in the setting of hyperaldosteronism, telemetry changes, and related symptoms, Hospital Medicine consulted for assistance with adequate repletion of electrolytes - Consider nephrology consult this morning # Tachycardia # Frequent PAC's - Seen by Dr. Block with Cardiology 09/26 - Reports history of tachycardia and arrhythmias during hospitalizations of electrolyte disturbances PLAN: - Cards: tele, replete electrolytes - Telemetry as above # Chest pain # Dyspnea - Endorses chest pressure with shortness of air - Episodic dizziness - Symptoms similar to prior episodes of electrolyte abnormalities - Trop and BNP WNL - D-dimer 2.33 - Vitals normal on arrival - EKG w/ sinus tach with PACs - Repeat EKG w/ sinus rhythm with PACs - Symptoms improved overnight # ICP - Bile acids 14 10/03 - On ursodiol at home - LFTs elevated increased at 93/82; awaiting morning labs # FGR - FGR diagnosed at OSH by US 10/14 by EFW 9% - Updated growth obtained 10/17 with AC 1%, EFW 15% - ANCS 10/11-10/12 # Status - Non-reactive NST in clinic today - Sent for BPP which was 07/14 off for breathing - Non-reactive tracing while in OB ED - Repeat BPP 10/18 # Prior C/S x1 - prior c/s for bradycardia - x2, x2 - Consented for TOLAC # Desires sterilization - KMA signed in clinic 8/18 and in media tab # contractions - painful contractions yesterday evening - CE 50/-3, unchanged over two checks - Start GBS prophylaxis if making cervical change DISPO: Continue inpatient management For any questions or concerns regarding this patient's care, please call OB resident workroom at #[phone]. Shazia Booker MD OBGYN Resident PGY-3 Cosigned by Laury Cruz MD at 10/19/2024 10:46 AM EDT Associated attestation - Laury Cruz MD - 10/19/2024 10:46 AM EDT I saw and evaluated the patient. I discussed the case with the resident/fellow and agree with the findings and plan as documented. The patient describes inability to swallow anything- like there is an actual lump or blockage in her throat. She states she has a hiatal hernia, with significant GERD for which she has been on Omeprazole but it was recently discontinued by nephrology as can worsen the hypokalemia, and she has been taking famotidine. Will reorder Omeprazole equivalent and some Carafate. Will also consult GI. * Nursing Note - Rosio Dunne RN - 10/19/2024 1:32 AM EDT Patient verbalized refusal of monitoring to RN. Discussed with MD Ade and MD Daylin. Off continuous monitoring per patient request at this time. Rosio Dunne RN * Nursing Note - Dave Browning RN - 10/18/2024 8:04 PM EDT Remote Telemetry Nursing Note Event Type: Patient educated on telemetry monitoring and Routine rounds Heart Rate of 118 sinus tachycardia S1/S2: Audible Patient Condition: Telemetry Status Stable Patient Disposition: Remains on remote telemetry Pt resting in bed. States she feels better today but still has her baseline chest pressure. On room air. Monitor shows Sinus Tach w HR 118 no ectopy. Does have intermittent depressed T waves. 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 * Care Plan - Tex Harman RN - 10/18/2024 5:44 PM EDT Problem: Adult Inpatient Plan of Care Goal: Plan of Care Review Outcome: Ongoing, Progressing Flowsheets Taken 10/18/20241742 by Tex Harman RN Progress: improving Taken 10/18/2024 0302 by Orlin Jimenez RN Plan of Care Reviewed With: patient Goal: Patient-Specific Goal (Individualized) Outcome: Ongoing, Progressing Flowsheets (Taken 10/18/2024 0800) Patient/Family-Specific Goals (Include Timeframe): patient will report any changes in chest pain, breathing issues and/or other abnormal symptoms Individualized Care Needs: questions encouraged and education provided, supoort provided Anxieties, Fears or Concerns: patient having anxiety related to early delivery and current condition Goal: Absence of Hospital-Acquired Illness or Injury Outcome: Ongoing, Progressing Intervention: Identify and Manage Fall Risk Flowsheets (Taken 10/18/2024 174) Safety Promotion/Fall Prevention: lighting adjusted Intervention: Prevent Skin Injury Flowsheets (Taken 10/18/2024 1300) Body Position: education provided Intervention: Prevent and Manage VTE (Venous Thromboembolism) Risk Flowsheets (Taken 10/18/2024 1300) VTE Prevention/Management: bilateral SCDs (sequential compression devices) on education provided Intervention: Prevent Infection Flowsheets (Taken 10/18/2024 1743) Infection Prevention: single patient room provided Goal: Optimal Comfort and Wellbeing Outcome: Ongoing, Progressing Intervention: Monitor Pain and Promote Comfort Flowsheets (Taken 10/18/2024 174) Pain Management Interventions: rest Intervention: Provide Person-Centered Care Flowsheets (Taken 10/18/2024 174) Trust Relationship/Rapport: care explained Problem: Hospitalized Patient Goal: Optimal Patient- Wellbeing Outcome: Ongoing, Progressing Intervention: Promote Patient- Wellbeing Flowsheets (Taken 10/18/2024 174) Wellbeing Promotion: heart rate monitored Intervention: Support Psychosocial Response Flowsheets Taken 10/18/2024 174 by Tex Harman RN Supportive Measures: decision-making supported goal-setting facilitated Taken 10/18/2024 0302 by Orlin Jimenez RN Family/Support System Care: self-care encouraged support provided * Consults - Urbano Donohue DO - 10/18/2024 3:40 PM EDTAssociated Order(s): IP CONSULT TO NEPHROLOGY Nephrology Consult Note Patient: Whitney Presley Admit Date: 10/17/2024 Date of Consult: 10/18/2024 Time of Consult: 3:40 PM Requesting Attending: Hilton Montelongo MD Reason for Consult: Electrolyte derangements HPI: Whitney Presley is a 34 y.o. female currently 33w with a past medical history of -related electrolyte derangements with resultant cardiac complications who presented to the on 10/17 for SOB and chest discomfort. Patient was seen by Dr Patrick in nephrology clinic on 10/05 for further evaluation of Severe hypokalemia/hypomagnesemia in the setting of . This has occurred with her prior pregnancies but notto this severity during current . She was taking daily PO potassium 240mEq and PO magnesium 1600mg in addition to the IV replacement she receives every other day. ROS: ROS was obtained in 14 points and is negative except otherwise as noted in the HPI. History: Past Medical History[1] Problem List[2] Surgical History[3] Family History[4] Social History Socioeconomic History Marital status: Spouse name: Glenda Presley Number of children: Not on file Years of education: Not on file Highest education level: Associate degree: academic program Occupational History Not on file Tobacco Use Smoking status: Never Passive exposure: Never Smokeless tobacco: Never Vaping Use Vaping status: Never Used Substance and Sexual Activity Alcohol use: Never Drug use: Never Sexual activity: Yes Partners: Male Other Topics Concern Not on file Social History Narrative Caffeine use Marital Status: Social Drivers of Health Financial Resource Strain: Low Risk (05/28/2024) Received from [facility] Overall Financial Resource Strain (CARDIA) Difficulty of Paying Living Expenses: Not hard at all Food Insecurity: No Food Insecurity (05/28/2024) Received from [facility] Hunger Vital Sign Within the past 12 months, you worried that your food would run out before you got the money to buymore.: Never true Within the past 12 months, the food you bought just didn't last and you didn't have money to get more.: Never true Transportation Needs: No Transportation Needs (05/28/2024) Received from [facility] PRAPARE - Transportation In the past 12 months, has lack of transportation kept you from medical appointments or from getting medications?: No In the past 12 months, has lack of transportation kept you from meetings, work, or from getting things needed for daily living?: No Physical Activity: Sufficiently Active (05/28/2024) Received from [facility] Exercise Vital Sign On average, how many days per week do you engage in moderate to strenuous exercise (like a brisk walk)?: 5 days On average, how many minutes do you engage in exercise at this level?: 40 min Stress: Stress Concern Present (05/27/2024) Received from [facility] [employer] [place] [employer] - Occupational Stress Questionnaire Feeling of Stress : To some extent Social Connections: Not At Risk (05/28/2024) Received from [facility] Family and Community Support If for any reason you need help with day-to-day activities such as bathing, preparing meals, shopping, managing finances, etc., do you get the help you need?: I don't need any help How often do you feel lonely or isolated from those around you?: Sometimes Intimate Partner Violence: Not At Risk (08/19/2024) Received from [facility] Abuse Screen Feels Unsafe at Home or Work/School: no Feels Threatened by Someone: no Does Anyone Try to Keep You From Having Contact with Others or Doing Things Outside Your Home?: no Physical Signs of Abuse Present: no Housing Stability: Not At Risk (08/20/2024) Received from [facility] Housing Stability Current Living Arrangements: home Potentially Unsafe Housing Conditions: none Allergies[5] Medications: Home Medications: Current Medications[6] Current Medications: Current Scheduled Medications[7] Current Continuous Medications[8] Physical Exam: Visit Vitals BP (!) 99/55 Pulse 99 Temp 36.8 ??C (98.2 ??F) (Oral) Resp 14 SpO2 100% OB Status Smoking Status Never Gen: Sitting up in bed; awake, alert, NAD HEENT: MMM, OP clear without lesions or exudate Neck: Supple CV: Regular rhythm, Normal S1/S2 Pulm: Clear to auscultation, normal respiratory effort Abd: Soft, non-tender, non-distended. Active BS. Ext: Trace to 1+ edema Skin: No jaundice. No rashes noted on observed skin Neuro: Alert and oriented. Moving all extremities Laboratory: CBC: Results from last 7 days Lab Units 10/17/24 22410/17/24 1605 WBC 10*3/uL 10.63* 9.54 HEMOGLOBIN g/dL 9.7* 10.2* HEMATOCRIT % 28.7* 29.7* PLATELETS 10*3/uL 185 177 CMP: Results from last 7 days Lab Units 10/18/24 1347 10/18/24 1346 10/18/24 0914 10/18/24 0338 10/17/24224010/17/24 1605 SODIUM mmol/L 132* 134* 134* < > 132* 136 POTASSIUM mmol/L 3.9 4.0 3.2* < > 2.5* 2.5* CHLORIDE mmol/L 98 100 94* < > 88* 87* CO2 mmol/L 23 23 27 < > 27 32* BUN mg/dL 8 8 9 < > 9 9 CREATININE mg/dL 0.64 0.65 0.66 < > 0.70 0.74 CALCIUM mg/dL 8.0* 8.0* 8.2* < > 8.4* 9.0 BILIRUBIN TOTAL mg/dL -- -- -- -- 0.7 0.6 ALKALINE PHOSPHATASE U/L -- -- -- -- 76 83 ALT U/L -- -- -- -- 76* 93* AST U/L -- -- -- -- 69* 82* GLUCOSE mg/dL 119* 121* 76 < > 77 78 < > = values in this interval not displayed. Impression & Plan: Whitney Presley is a 34 y.o. female currently 33w with a past medical history of -related electrolyte derangements with resultant cardiac complications who presented to the on 10/17 for SOB and chest discomfort. . Nephrology consulted for electrolyte derangements. Assessment: #Severe hypokalemia, hypomagnesemia -concern etiology related to RTA/hyperaldosteronism -VBG on 10/17 pH 7.6, PCO2 31, bicarb 32 - was taking daily PO potassium 240mEq and PO magnesium 1600mg in addition to the IV replacement she receives every other day. Inpatient: on IV replacement -on mag oxide 800 mg BID -on K phos 4x daily, KCL 40 meq tid, sodium phos -on bicitria #Hypophosphatemia #33weeks #-Related Dyspnea #-Related Chest Pressure Recommendations and Plan: -Agree with continued aggressive electrolyte replacement with IV potassium, magnesium, phosphorus, in addition, to PO supplements as ordered -labs pending Julita/Renin, 24 urine -- Unfortunately with limited options at this time (as unable to add potassium sparing medications due to ) Will plan to re-evaluate after delivery if symptoms persist (reports after delivery symptoms have resolved in past) Please call or page with any questions. Nephrology will continue to follow. Urbano Donohue DO Nephrology Fellow Page [phone] [1] Past Medical History: Diagnosis Date Maternal [...] , unspecified trimester Spotting in early [2] Patient Active Problem List Diagnosis Hypokalemia Electrolyte abnormality [3] Past Surgical History: Procedure Laterality Date SECTION, LOW TRANSVERSE N/A section from [facility] DILATION AND CURETTAGE OF UTERUS N/A Dilation and curettage from [facility] WISDOM TOOTH EXTRACTION N/A Oral Surgery Tooth Extraction [place] Tooth from [facility] [4] Family History Problem Relation Name Age [...] - Other Other Known health problems: none [5] Allergies Allergen Reactions Tobacco Other - please document in the comment field and Shortness of breath SOB when exposed to smoke, contact dermatitis with skin contact Peanuts [Peanut Allergen Powder-Dnfp] Hives [6] Current Facility-Administered Medications: acetaminophen (Tylenol) tablet 650 mg, 650 mg, Oral, q4h PRN, Chinyere Nieto MD, 650 mgat 10/17/242058 azithromycin (Zithromax) 500 mg in sodium chloride 0.9% 250 mL IVPB (vial adapter required), 500 mg, Intravenous, Once in OR, Chinyere Nieto MD calcium carbonate (Tums) chewable tablet 1,000 mg, 1,000 mg, Oral, 4x daily PRN, Chinyere Nieto MD ceFAZolin (Ancef) injection 2 g, 2 g, Intravenous, Once in OR, Chinyere Nieto MD cyclobenzaprine (Flexeril) tablet 5 mg, 5 mg, Oral, TID PRN, Chinyere Nieto MD, 5 mg at10/18/24 1002 dextrose 5 % and lactated Ringer's infusion, 75 mL/hr, Intravenous, Continuous, Ana Deal MD, Last Rate: 75 mL/hr at 10/18/24 1025, 75 mL/hr at 10/18/24 1025 famotidine (Pepcid) tablet 20 mg, 20 mg, Oral, BID PRN OR famotidine PF (Pepcid) injection 20 mg, 20 mg, Intravenous, BID PRN, Chinyere Nieto MD, 20 mg at 10/18/24 1002 ferrous sulfate EC tablet 324 mg, 324 mg, Oral, Daily with breakfast, Ana Deal MD, 324 mg at 10/18/24 1238 hydrOXYzine pamoate (Vistaril) capsule 25 mg, 25 mg, Oral, q6h PRN, Chinyere Nieto MD, 25 mg at 10/18/24 0018 magnesium oxide (Mag-Ox) tablet 800 mg, 800 mg, Oral, BID, Santos Herrmann MD magnesium sulfate IVPB 4 g, 4 g, Intravenous, Once, Santos Herrmann MD, Last Rate: 25 mL/hr at 10/18/24 1238, 4 g at 10/18/24 1238 melatonin tablet 3 mg, 3 mg, Oral, Nightly PRN, Chinyere Nieto MD multivitamin tablet 1 tablet, 1 tablet, Oral, Daily, Chinyere Nieto MD, 1 tablet at 10/18/24 0915 mupirocin (Bactroban) 2 % ointment 1 Application, 1 Application, Each Nostril, BID, Ana Deal MD, 1 Application at 10/18/24 1002 ondansetron ODT (Zofran-ODT) disintegrating tablet 4 mg, 4 mg, Oral, q6h PRN OR ondansetron (Zofran) injection 4 mg, 4 mg, Intravenous, q6h PRN OR ondansetron (Zofran) 4 MG/5ML solution 4 mg,4 mg, Oral, q6h PRN, Chineyre Nieto MD potassium chloride CR (Klor-Con) ER tablet 40 mEq, 40 mEq, Oral, TID, Mo Guaman MD, 40 mEq at 10/18/24 0915 potassium chloride IVPB 10 mEq, 10 mEq, Intravenous, q1h, Chinyere Nieto MD, Last Rate:100 mL/hr at 10/18/24 1449, 10 mEq at 10/18/24 1449 prochlorperazine (Compazine) injection 5 mg, 5 mg, Intravenous, q6h PRN, Chinyere Nieto MD, 5 mg at 10/18/24 1353 promethazine (Phenergan) tablet 12.5 mg, 12.5 mg, Oral, q6h PRN, Chinyere Nieto MD Insert peripheral IV, , , Once AND Saline lock IV, , , Once AND sodium chloride 0.9 % flush3 mL, 3 mL, Intravenous, PRN, Chinyere Nieto MD sodium citrate-citric acid (Bicitra) 500-334 MG/5ML solution 30 mL, 30 mL, Oral, Once in OR, Chinyere Lyons MD terbutaline (Brethine) injection 0.25 mg, 0.25 mg, Subcutaneous, Once PRN, Chinyere Nieto MD ursodiol (Actigall) capsule 300 mg, 300 mg, Oral, TID, Chinyere Nieto MD, 300 mg at 10/18/24 0915 [7] azithromycin, 500 mg, Intravenous, Once in OR ceFAZolin, 2 g, Intravenous, Once in OR ferrous sulfate, 324 mg, Oral, Daily with breakfast magnesium oxide, 800 mg, Oral, BID magnesium sulfate, 4 g, Intravenous, Once multivitamin , 1 tablet, Oral, Daily mupirocin, 1 Application, Each Nostril, BID potassium chloride, 40 mEq, Oral, TID potassium chloride, 10 mEq, Intravenous, q1h sodium citrate-citric acid, 30 mL, Oral, Once in OR ursodiol, 300 mg, Oral, TID [8] dextrose 5 % and lactated Ringer's, 75 mL/hr, Last Rate: 75 mL/hr (10/18/24 1025) Cosigned by Blu Burr MD at 10/18/2024 9:36 PM EDT Associated attestation - Blu Burr MD - 10/18/2024 9:36 PM EDT I saw and evaluated the patient with the resident/fellow. I discussed the case with the resident/fellow and agree with the findings and plan as documented. * Progress Notes - Santos Herrmann MD - 10/18/2024 2:43 PM EDT Subjective: MEDICINE CONSULT FOLLOW-UP NOTE No acute events overnight Review of Systems: Constitutional: no fevers, no weakness, no weight loss, normal appetite Cardiovascular: + chest pain, no palpitations, no edema Respiratory: + shortness of breath, no cough Gastrointestinal: no nausea, no vomiting, no diarrhea, no constipation, no abdominal pain Musculoskeletal: no back pain, no shoulder pain, no hip pain, no knee pain All other review of systems are negative. Active Medications: Current Scheduled Medications[1] Current Continuous Medications[2] Current PRN Medications[3] Objective: Visit Vitals BP (!) 99/55 Pulse 99 Temp 36.8 ??C (98.2 ??F) (Oral) Resp 14 SpO2 100% OB Status Smoking Status Never Physical Exam: General: AOx3, no acute distress, well-nourished Cardiovascular: regular s1/s2, no murmurs, no JVD, no lower extremity edema Pulmonary: clear, no crackles, no wheezes, non-labored Abdom: normal bowel sounds, soft, non-tender, non-distended Muskuloskeletal: full RoM in BUE, full RoM in Knees, full RoM in Hips Dermatologic: no rashes, no lesions, no ulcers Labs: Lab Results Component Value Date NA 134 (L) 10/18/2024 K 3.2 (L) 10/18/2024 CL 94 (L) 10/18/2024 CO2 27 10/18/2024 BUN 9 10/18/2024 CREATININE 0.66 10/18/2024 ALT 76 (H) 10/17/2024 AST 69 (H) 10/17/2024 Lab Results Component Value Date WBC 10.63 (H) 10/17/2024 HGB 9.7 (L) 10/17/2024 PLT 185 10/17/2024 MCV 88 10/17/2024 ASSESSMENT/PLAN: Whitney Presley: 34yo female PMHx -related hyperaldosteronism, cardiac arrest in thesetting of severe hypokalemia with prior admitted for chest pain, severe electrolyte abnormalities #) Hypokalemia #) Hypomagnesemia #) Secondary Hyperaldosteronism Her electrolyte abnormalities have happened on previous pregnancies, usually during the second and third trimerster. They do not happen when she is not . She was taking daily PO potassium 240mEq and PO magnesium 1600mg in addition to the IV replacement she receives every other day. She says she has been diagnosed with Hyperaldo, but her BP is not high (although may counteract that). She also is not terribly alkalotic, which seems odd in a hyperaldo state /Plan: - Magnesium oxide 400mg BID, potassium chloride 40mEq TID with additional IV replacement - continue telemetry monitoring - Check AM Julita and Renin - 24hr Urine Mg, Ca, K, Cr, Phos #) -Related Dyspnea #) -Related Chest Pressure TTE showed no valvular or functional abnormalities Santos Herrmann MD PhD Division of [facility] Medicine [phone] [1] azithromycin, 500 mg, Intravenous, Once in OR ceFAZolin, 2 g, Intravenous, Once in OR ferrous sulfate, 324 mg, Oral, Daily with breakfast magnesium oxide, 800 mg, Oral, BID magnesium sulfate, 4 g, Intravenous, Once multivitamin , 1 tablet, Oral, Daily mupirocin, 1 Application, Each Nostril, BID potassium chloride, 40 mEq, Oral, TID sodium citrate-citric acid, 30 mL, Oral, Once in OR ursodiol, 300 mg, Oral, TID [2] dextrose 5 % and lactated Ringer's, 75 mL/hr, Last Rate: 75 mL/hr (10/18/24 1025) [3] PRN medications: acetaminophen, calcium carbonate, cyclobenzaprine, famotidine OR famotidine PF, hydrOXYzine pamoate, melatonin, ondansetron ODT OR ondansetron OR ondansetron, prochlorperazine, promethazine, Insert peripheral IV AND Saline lock IV AND sodium chloride, terbutaline * Consults - Elizabeth Campbell DO - 10/18/2024 12:13 PM EDTAssociated Order(s): IP CONSULT TO NEONATOLOGY A NICU consult was requested by OB/MFM for this of 33w5d weeks gestation due to concerns regarding delivery in the setting of RTA and secondary hyperaldosteronism . The mother, Whitney Presley , is a 34 y.o. at 33w5d weeks. 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 She has received infusions every other day of potassium and magnesium. She iscurrently admitted for worsening symptoms and is being followed by cardiology and nephrology. Past Medical History[1] Surgical History[2] Social History Socioeconomic History Marital status: Spouse name: Glenda Presley Number of children: Not on file Years of education: Not on file Highest education level: Associate degree: academic program Occupational History Not on file Tobacco Use Smoking status: Never Passive exposure: Never Smokeless tobacco: Never Vaping Use Vaping status: Never Used Substance and Sexual Activity Alcohol use: Never Drug use: Never Sexual activity: Yes Partners: Male Other Topics Concern Not on file Social History Narrative Caffeine use Marital Status: Social Drivers of Health Financial Resource Strain: Low Risk (05/28/2024) Received from [facility] Overall Financial Resource Strain (CARDIA) Difficulty of Paying Living Expenses: Not hard at all Food Insecurity: No Food Insecurity (05/28/2024) Received from [facility] Hunger Vital Sign Within the past 12 months, you worried that your food would run out before you got the money to buymore.: Never true Within the past 12 months, the food you bought just didn't last and you didn't have money to get more.: Never true Transportation Needs: No Transportation Needs (05/28/2024) Received from [facility] PRAPARE - Transportation In the past 12 months, has lack of transportation kept you from medical appointments or from getting medications?: No In the past 12 months, has lack of transportation kept you from meetings, work, or from getting things needed for daily living?: No Physical Activity: Sufficiently Active (05/28/2024) Received from [facility] Exercise Vital Sign On average, how many days per week do you engage in moderate to strenuous exercise (like a brisk walk)?: 5 days On average, how many minutes do you engage in exercise at this level?: 40 min Stress: Stress Concern Present (05/27/2024) Received from [facility] [place] [facility] Occupational [facility] - Occupational Stress Questionnaire Feeling of Stress : To some extent Social Connections: Not At Risk (05/28/2024) Received from [facility] Family and Community Support If for any reason you need help with day-to-day activities such as bathing, preparing meals, shopping, managing finances, etc., do you get the help you need?: I don't need any help How often do you feel lonely or isolated from those around you?: Sometimes Intimate Partner Violence: Not At Risk (08/19/2024) Received from [facility] Abuse Screen Feels Unsafe at Home or Work/School: no Feels Threatened by Someone: no Does Anyone Try to Keep You From Having Contact with Others or Doing Things Outside Your Home?: no Physical Signs of Abuse Present: no Housing Stability: Not At Risk (08/20/2024) Received from [facility] Housing Stability Current Living Arrangements: home Potentially Unsafe Housing Conditions: none Social History: She is . Father of baby is involved. She denies any use during of alcohol, tobacco products, or recreational/illicit drugs. Medications Ordered Prior to Encounter[3] Allergies[4] Family History[5] She denies any known family history of intellectual disability or defects. Maternal labs: O Positive / RI / RPRNR / HBV- / HCV- / HIV- / GBS unknown Most recent ultrasound: normal anatomy, EFW 1759g I spoke with mother at the bedside today. Mother reports that baby is a girl with planned name of Emi. I first spent time discussing general resuscitative measures at this gestational age including but not limited to drying/warming/stimulating, potentially utilizing respiratory support including CPAP,intubation, and/or endotracheal surfactant administration. I superficially explained RDS and premature lung physiology and the consequences of ventilation including BPD. I then explained the risk forinterventricular hemorrhage and the grades and consequences of such a bleed, including shelter neurodevelopmental delay. I outlined the plans for nutrition as they relate to gestational age including parenteral feeds, enteral feeds, and the importance of breast milk either from maternal pumping or donor breast milk if needed. I described NEC and SIP and explained the risk factors for their development. I then briefly outlined the pathophysiology, risk factors, and treatments for retinopathy of prematurity. I spent some time discussing an overview of some other common conditions in NICU babies including feeding difficulties, hyperbilirubinemia, apnea of prematurity, anemia of prematurity, sepsis, PDA, and iatrogenic complications from a NICU stay. We discussed overall mortality and morbidity as they relate to the gestational age and discussed the potential for moderate to severe disabilities as consequences of prematurity. Parent's goals: Delay delivery until after 35 weeks. Exclusively breastfeed I briefly introduced the idea of potential research studies that this may qualify for andexplained that if her met criteria, someone may discuss opportunities with her later. Mother verbalized understanding and did not have any further questions at this time. I offered a return by NICU providers should questions arise later. Elizabeth Campbell DO PGY-5 Fellow Physician - Medicine [1] Past Medical History: Diagnosis Date Maternal [...] Date SECTION, LOW TRANSVERSE N/A section from [facility] DILATION AND CURETTAGE OF UTERUS N/A Dilation and curettage from [facility] WISDOM TOOTH EXTRACTION N/A Oral Surgery Tooth Extraction [facility] To[facility] from [facility] [3] No current facility-administered medications on file prior to encounter. Current Outpatient Medications on File Prior to Encounter Medication Sig Dispense Refill FeroSul 325 (65 Fe) MG tablet Take 1 tablet by mouth daily. magnesium oxide (Mag-Ox) 400 (240 Mg) MG tablet Take 2 tablets by mouth 2 times a day. polyethylene glycol (Miralax) 17 GM/SCOOP powder Take 17 g by mouth 2 times a day. potassium chloride 20 MEQ/100ML IVPB Infuse 400 mL into a venous catheter every other day. Given 80-100 mEq every other day. potassium chloride CR (K-Tab) 20 MEQ ER tablet Take 2 tablets by mouth every 4 hours. Do not crush,chew, or split. Prenat MV-Min w/Ng-Dytlvu-IKL ( COMPLETE PO) promethazine (Phenergan) 12.5 MG tablet Take 1 tablet by mouth 3 times a day. thiamine (Vitamin B-1) 100 MG tablet Take 1 tablet by mouth 1 time each day. ursodiol (Actigall) 300 MG capsule Take 1 capsule by mouth 2 times a day. [DISCONTINUED] metoprolol succinate XL (Toprol XL) 25 MG 24 hr tablet Take 0.5 tablets by mouth 2 times a day. Do not crush or chew. (Patient not taking: Reported on 10/17/2024) 30 tablet 1 [DISCONTINUED] omeprazole (PriLOSEC) [address] capsule Take 1 capsule by mouth 1 time each day. [DISCONTINUED] ondansetron ODT (Zofran-ODT) 4 MG disintegrating tablet DISSOLVE 1 TABLET IN MOUTH EVERY 8 HOURS NEEDED FOR NAUSEA AND VOMITING FOR 4 DAYS [DISCONTINUED] pantoprazole (Protonix) 40 MG EC tablet [DISCONTINUED] potassium chloride (Klor-Con) 20 MEQ packet Take twice a day for 3 days each week. Weekly labs (Patient not taking: Reported on 10/17/2024) [DISCONTINUED] potassium chloride CR 10 MEQ PO ER tablet Take 1 tablet by mouth 2 times a day. (Patient taking differently: Take 1 tablet by mouth 4 times a day.) [4] Allergies Allergen Reactions Tobacco Other - please document in the comment field and Shortness of breath SOB when exposed to smoke, contact dermatitis with skin contact Peanuts [Peanut Allergen Powder-Dnfp] Hives [5] Family History Problem Relation Name Age of Onset Diabetes Mother Diabetes Father Diabetes Paternal Grandmother Conversions - Other Father first degree relative with congenital heart disease Hypertension Mother Hypertension Father Hypertension Other Obesity Mother Obesity Father Obesity Sister Obesity Other Thyroid disease Mother Thyroid disease Father Thyroid disease Sister Hyperlipidemia Mother Hyperlipidemia Father Hyperlipidemia Other Conversions - Other Other Known health problems: none Cosigned by Azeem Castro MD at 10/18/2024 1:18 PM EDT Associated attestation - Azeem Castro MD - 10/18/2024 1:18 PM EDT I saw and evaluated the patient with the resident/fellow. I discussed the case with the resident/fellow and agree with the findings and plan as documented. Time Spent: I personally spent a total of 40 minutes on this encounter. This time includes face to face with patient, counseling and discussion and/or coordination of care. * Care Plan - Orlin Jimenez RN - 10/18/2024 3:05 AM EDT Problem: Adult Inpatient Plan of Care Goal: Plan of Care Review Outcome: Ongoing, Progressing Flowsheets (Taken 10/18/2024301) Progress: no change Plan of Care Reviewed With: patient Goal: Patient-Specific Goal (Individualized) Outcome: Ongoing, Progressing Flowsheets (Taken 10/18/2024301) Patient/Family-Specific Goals (Include Timeframe): PT will report [...] Progressing Intervention: Provide Person-Centered Care Flowsheets (Taken 10/18/2024301) Trust Relationship/Rapport: care explained choices provided emotional support provided empathic listening provided questions answered questions encouraged thoughts/feelings acknowledged reassurance provided Problem: Hospitalized Patient Goal: Optimal Patient- Wellbeing Outcome: Ongoing, Progressing Intervention: Support Psychosocial Response Flowsheets (Taken 10/18/2024301) Supportive Measures: active listening utilized Family/Support System Care: self-care encouraged support provided * Progress Notes - Chinyere Nieto MD - 10/18/2024 12:23 AM EDT Maternal Medicine Progress Note Subjective Symptomatically improving this morning. Shortness of breath feels improved. Denies chest pain. Ableto rest. Contractions resolved. Denies vaginal bleeding, gushes of fluid. Endorses good movement. REVIEW OF SYSTEMS 10-point review of systems was performed and negative except as stated in HPI. Objective Temp: [36.4 ??C (97.5 ??F)-36.8 ??C (98.2 ??F)] 36.8 ??C (98.2 ??F) Heart Rate: [94] 94 Resp: [16-17] 17 BP: (94)/(69) 94/69 Vitals: 10/17/24 1551 Resp: 17 Temp: 36.8 ??C (98.2 ??F) No intake/output data recorded. GENERAL: Alert, well-appearing, in NAD CARDIOVASCULAR: Normal rate. No peripheral edema. RESPIRATORY: Normal respiratory effort on room air GASTROINTESTINAL: Soft, gravid, nontender, no rebound or guarding. GENITOURINARY: Deferred SKIN: Warm, dry, well-perfused. PSYCHIATRIC: AO x3, with appropriate affect, normal thought processes EXREMITIES: Symmetric. No peripheral edema. Lab Results Component Value Date WBC 10.63 (H) 10/17/2024 RBC 3.27 (L) 10/17/2024 HGB 9.7 (L) 10/17/2024 HCT 28.7 (L) 10/17/2024 PLT 185 10/17/2024 MCV 88 10/17/2024 MCH 29.7 10/17/2024 MCHC 33.8 10/17/2024 RDW 15.8 (H) 10/17/2024 MPV 12.3 10/17/2024 NRBC 0.0 10/17/2024 Lab Results Component Value Date URATECRYU 10.1 (H) 10/17/2024 CREATININE 0.70 10/17/2024 EGFR 117.3 10/17/2024 ALT 76 (H) 10/17/2024 AST 69 (H) 10/17/2024 LDH 267 (H) 10/17/2024 Assessment/Plan 34 yo at 33w5d admitted after presentation for chest pain/SOA with significant electrolyte derangements in the setting of hyperaldosteronism/RTA. 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 - Currently managed by internal medicine provider at OSH, has seen Nephrology at for consult as well - Currently receiving 160 mEq potassium every other day at outside hospital with PO repletion of magnesium and potassium daily - Reports last infusion 10/16 prior to admission - Significant electrolyte disturbances on admission including potassium of 2.5 and magnesium of 1.4 - Generalized symptoms including N/V, SOA, tingling as described below PLAN: - Telemetry monitoring due to electrolyte disturbances - Trend BMP, electrolytes with repletion as indicated - Due to complexity of repletion in the setting of hyperaldosteronism, telemetry changes, and related symptoms, Hospital Medicine consulted for assistance with adequate repletion of electrolytes - Consider nephrology consult this morning # Tachycardia # Frequent PAC's - Seen by Dr. Block with Cardiology 09/26 - Reports history of tachycardia and arrhythmias during hospitalizations of electrolyte disturbances PLAN: - Cards: tele, replete electrolytes - Telemetry as above # Chest pain # Dyspnea - Endorses chest pressure with shortness of air - Episodic dizziness - Symptoms similar to prior episodes of electrolyte abnormalities - Trop and BNP WNL - D-dimer 2.33 - Vitals normal on arrival - EKG w/ sinus tach with PACs - Repeat EKG w/ sinus rhythm with PACs - Symptoms improved overnight # ICP - Bile acids 14 10/03 - On ursodiol at home - LFTs elevated today at 93/82 # FGR - FGR diagnosed at OSH by US 10/14 by EFW 9% - Updated growth obtained 10/17 with AC 1%, EFW 15% - ANCS 10/11-10/12 # Status - Non-reactive NST in clinic today - Sent for BPP which was 07/14 off for breathing - Non-reactive tracing while in OB ED - Repeat BPP 10/18 # Prior C/S x1 - prior c/s for bradycardia - x2, x2 - Consented for TOLAC # Desires sterilization - KMA signed in clinic 09/23 and in media tab # contractions - painful contractions yesterday evening - CE /-3, unchanged over two checks - Start GBS prophylaxis if making cervical change DISPO: Continue inpatient management Chinyere Cordova MD Obstetrics and Gynecology, PGY-3 Cosigned by Laury Cruz MD at 10/18/2024 9:17 PM EDT Associated attestation - Laury Cruz MD - 10/18/2024 9:17 PM EDT I saw and evaluated the patient with the resident/fellow. I discussed the case with the resident/fellow and agree with the findings and plan as documented. Continue to replete K+ and magnesium. Symptoms improving with electrolyte replacement. * Consults - Ania Mccabe DO - 10/17/2024 11:00 PM EDTAssociated Order(s): Inpatient consult to Cardiology Images from the original note were not included. Inpatient consult to Cardiology Consult performed by: Ania Mccabe DO Consult ordered by: Hilton Montelongo MD CARDIOLOGY NEW CONSULT NOTE Reason For Consult: tachycardia, PAC/PVC's, dyspnea Requesting Service: Emergency Department Requested Date: 10/17/2024 SUBJECTIVE History Of Present Illness Whitney Presley is a 34 y.o. female with a past medical history of -related hyperaldosteronism, cardiac arrest in the setting of severe hypokalemia with prior who initially presented to the [facility] with chief complaint of dyspnea and chest pain over thelast several weeks both on exertion and at rest. She describes her chest pain as a pressure like sensation sometimes associated with dyspnea or pleuritic pain. She describes that these symptoms occurred in her prior as well, typically during the 2nd-3rd trimester, though this have been much more severe. She was found to have severe electrolyte derangements with prior with concern for -related hyperaldosteronism requiring significant repletion of K and Mg. She was receiving aggressive repletion outpatient as well, though levels remain severely low. Her chest pain and dyspnea have become more constant with less symptom-free periods. She currently takes daily PO potassium 240mEq and PO magnesium 1600mg in additionto the IV replacement she receives every other day. Since admission patient has been hemodynamically stable. Labs notable for severe hypokalemia and hypomagnesemia. In the setting of her electrolyte abnormalities, she has had frequent ectopy, mainly atrial but also with some PVCs. The patient reports that the only relief she got from her chest pressure and dyspnea during her last was from delivery. Patient was recently seen by Dr. Block with cardiology for evaluation of tachycardia and syncope. At that time syncopal episodes were thought to be vasovagal in origin given prodromal symptoms. Initiation of metoprolol was discussed but patient preferred to hold off until further evaluation with a heart monitor. Review of Systems 14 point ROS reviewed and is otherwise negative except that which is mentioned in the HPI. Past Medical History Past Medical History[1] Surgical History Surgical History[2] Family History Reviewed and non-contributory. Allergies Bismuth subsalicylate, Tobacco, and Peanuts [peanut allergen powder-dnfp] Home Medications Current Outpatient Medications Medication Instructions FeroSul 325 [...] 10 mEq, 2 times daily Prenat MV-Min w/Fb-Ldambh-EKI ( COMPLETE PO) thiamine (VITAMIN B-1) 100 mg, ZZ Daily RT OBJECTIVE Physical Exam Blood pressure (!) 99/55, pulse 80, temperature 36.8 ??C (98.2 ??F), resp. rate 17, SpO2 98%. GENERAL: Awake, alert, appears mildly uncomfortable, intermittently dozing off during conversation HEENT: NCAT NECK: No appreciable JVD CARDIAC: Regular rate, regular rhythm, normal S1/S2, no m/r/g, 2+ radial pulses bilaterally PULM: CTAB without increased work of breathing ABD: +gravid abdomen EXT: Warm and well perfused, +1 LE edema SKIN: No rashes or lesions NEURO: A&Ox4, moving all extremities spontaneously Results / Imaging Results from last 7 days Lab Units 10/18/24 0338 10/17/24 2241 SODIUM mmol/L 133* 132* POTASSIUM mmol/L 3.1* 2.5* CHLORIDE mmol/L 92* 88* CO2 mmol/L 27 27 BUN mg/dL 8 9 CREATININE mg/dL 0.66 0.70 CALCIUM mg/dL 8.0* 8.4* BILIRUBIN TOTAL mg/dL -- 0.7 ALKALINE PHOSPHATASE U/L -- 76 ALT U/L -- 76* AST U/L -- 69* GLUCOSE mg/dL 73* 77 Results from last 7 days Lab Units 10/17/24 2241 WBC 10*3/uL 10.63* HEMOGLOBIN g/dL 9.7* HEMATOCRIT % 28.7* PLATELETS 10*3/uL 185 Most recent Echocardiogram (09/26/2024): ECHO 09/20/2024 ([facility]) Normal LV size and function. LVEF >55%. Normal RV size and function. Trileaflet aortic valve. No aortic stenosis or regurgitation. Grossly normal mitral valve. Mild mitral regurgitation. No mitral stenosis. Grossly normal tricuspid valve. Mild tricuspid regurgitation. Unable to estimate RVSP. Pulmonic valve is not well visualized. No pulmonic stenosis or regurgitation. ECG/Telemetry: ST with PACs (some with aberrant conduction) ASSESSMENT/PLAN Whitney Presley is a 34 y.o. female who initially [facility] todaywith chief complaint of -related chest pain, dyspnea, and electrolyte abnormalities found to have frequent atrial ectopy and less frequently ventricular ectopy. #PACs #PVCs #Severe Hypokalemia, Hypomagnesemia #-Related Hyperaldosteronism Patient with -related hyperaldosteronism and chest pain and dyspnea on exertion associatedwith her presenting with severe hypomagnesemia and hypokalemia. Telemetry/ECG noted frequent PAC's, some of which appear to be aberrantly conducted and less frequently PVC's. Overall, suspect that her PACs and PVCs are related to her severe electrolyte derangements and ultimately will improve once K and Mg levels are more normalized. - Continue with aggressive electrolyte repletion - Continue telemetry #-Related Dyspnea #-Related Chest Pressure Patient with dyspnea and chest pressure associated with ultimately with cardiac biomarkers including HST WNL x4 and BNP 125 and non-ischemic EKG reassuring against ischemia/SCAD or peripartum CM. Overall, seems this is similar to her prior pregnancies though of more severity and anticipate willimprove when she is able to deliver. - Reasonable to obtain TTE while inpatient so we have local images and to re- assess given some progression in her dyspnea Please page the on-call gray mixing operator with any further questions. I spent 45 minutes performing the following components of the encounter (on the day of the encounter): reviewing History, examining the patient, reviewing imaging and/or labs, Independently interpreting echocardiogram, ECG and/or other imaging results, counseling the patient and family/caregiver, communicating with other health critical care physician, care coordination, and entering clinical information in the EHR. Greater than 50% of the time spent on the encounter was face to face providing direct patient care, counseling for the patient/caregiver, and care coordination. Ania Mccabe DO PGY-4 Gear Shaper 10/18/24 4:22 AM [1] Past Medical History: Diagnosis Date Maternal [...] Date SECTION, LOW TRANSVERSE N/A section from [facility] DILATION AND CURETTAGE OF UTERUS N/A Dilation and curettage from [facility] WISDOM TOOTH EXTRACTION N/A Oral Surgery Tooth Extraction [place] Tooth from [facility] Cosigned by Noel Osman MD at 10/18/2024 12:41 PM EDT Associated attestation - Noel Osman MD - 10/18/2024 12:41 PM EDT I saw and evaluated the patient with the resident/fellow. I discussed the case with the resident/fellow and agree with the findings and plan as documented. * Consults - Nya Long MD - [...] as well. She currently takes daily PO [id number] and PO magnesium 1600mg in addition to [...] 10 mEq, 2 times daily Prenat MV-Min w/Nt-Agzonl-BZF ( COMPLETE PO) thiamine (VITAMIN B-1) 100 [...] Nya Long MD Internal Medicine PGY-2 Pager: [phone] [1] Allergies Allergen Reactions Bismuth Subsalicylate Other [...] anxiety contributing to hyperventilation and respiratory alkalosis. * H&P - Chinyere Nieto MD - 10/17/2024 5:05 PM EDT [facility] OBSTETRICS OBSTETRIC EMERGENCY HISTORY & PHYSICAL Patient Name: Whitney Presley : 1990 CHIEF CONCERN: Non-reactive NST, SOA PRIMARY OB: Boby Marin MD Subjective Subjective HPI: Whitney Presley is a 34 y.o. at 33w4d (12/01/2024) who presents with shortness of breath and chest pain that started 2 hours ago. States that she went to see [facility] today and she had an US and failed her BPP and had a non- reactive NST. She also has a complicated past medical history duringthis in which she follows with [facility], cardiology, and nephrology. 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 She states that she has had all of her pregnancies result in this hypoaldosteronism, but this has been the worst case of this. She receives infusions every other day of potassium and magnesiumand also takes oral potassium. Denies painful contractions, vaginal bleeding, or leaking of fluid. Reports decreased movement for the past few days. Of note, patient did receive 2 doses of ANCS10/11- 10/12 for pre-term contractions. Denies fevers/chills, dysuria, constipation/diarrhea. Admits nausea/vomiting, headache/vision changes, chest pain/shortness of air, occasional lower extremity swelling. OBSTETRIC HX: OB History 9 Para 5 Term 4 1 AB 3 Living 5 SAB 3 IAB Ectopic Multiple Live Births 5 Prior x 4 Prior CS x 1 Pelvis proven to 2807 g Denies any history of STI including HSV, chlamydia, gonorrhea, trichomonas. OB ULTRASOUNDS 10/17/2024 - 133, vertex, plac ant, 3 VC, normal ANURADHA, AC 1%, EFW 1759g (15%) 07/16 BPP score, NST non-reactive US 10/14: ANURADHA nml, EFW 9%, AC 16%, normal dopplers US 08/19 at 25w1d: breech, funic, ant plac, 3VC, AF nl, AC 15%, EFW 16% (696g), normal UAD, CL 3.9cm LABS Lab Results Component Value Date ABO O POSITIVE 12/25/2018 HEPBSAG NEGATIVE Reference Value: Negative 01/22/2019 JOSSELINE NEGATIVE Reference Range: Negative 01/22/2019 Past Medical History Asthma: No history Hypertension: No history of hypertension Diabetes: No history of diabetes Coagulopathy: No history of DVT, PE, or clotting disorder Past Medical History[1] Past Surgical History Surgical History[2] Social History Social History[3] Family History Denies any family history of defects/mental disabilities Family History[4] Current Medications Current Outpatient Medications Medication Instructions FeroSul 325 [...] 10 mEq, 2 times daily Prenat MV-Min w/Ba-Wqvjdr-NDO ( COMPLETE PO) thiamine (VITAMIN B-1) 100 mg, ZZ Daily RT Allergies Allergies[5] ROS: Review of Systems Constitutional: Positive for chills. Negative for fever. HENT: Positive for congestion and sore throat. Eyes: Positive for visual disturbance. Respiratory: Positive for cough and shortness of breath. Cardiovascular: Positive for chest pain, palpitations and leg swelling. Gastrointestinal: Positive for abdominal pain and nausea. Negative for diarrhea. Neurological: Positive for dizziness and headaches. Objective Objective VITALS: Visit Vitals Temp 36.8 ??C (98.2 ??F) Resp 17 122/74, 88% O2 on RA, 134 HR BMI- 25.34 kg/m2 PHYSICAL EXAM: Physical Exam Constitutional: Appearance: She is ill-appearing. She is not diaphoretic. Genitourinary: Genitourinary Comments: Deferred HENT: Head: Normocephalic and atraumatic. Nose: Congestion present. No rhinorrhea. Mouth/Throat: Pharynx: Posterior oropharyngeal erythema present. No oropharyngeal exudate. Comments: Cobblestoning in posterior pharynx Cardiovascular: Rate and Rhythm: Regular rhythm. Tachycardia present. Heart sounds: No gallop. Comments: Occasional dropped beat Pulmonary: Effort: Respiratory distress present. Breath sounds: Normal breath sounds. No wheezing. Abdominal: Tenderness: There is abdominal tenderness (mild tenderness to RUQ). Comments: Gravid Neurological: Mental Status: She is alert and oriented to person, place, and time. Skin: General: Skin is warm and dry. Capillary Refill: Capillary refill takes less than 2 seconds. Nonstress test: 130 baseline, nonvariable, accelerations and decelerations absent nonreactive Tocometry: CTX negative LABS: Lab Results Component Value Date WBC 9.54 10/17/2024 HGB 10.2 (L) 10/17/2024 HCT 29.7 (L) 10/17/2024 MCV 87 10/17/2024 PLT 177 10/17/2024 Lab Results Component Value Date GLUCOSE 78 10/17/2024 CALCIUM 9.0 10/17/2024 NA 136 10/17/2024 K 2.5 (LL) 10/17/2024 CO2 32 (H) 10/17/2024 CL 87 (L) 10/17/2024 BUN 9 10/17/2024 CREATININE 0.74 10/17/2024 Magnesium- 2.5 D-dimer- 2.33 IMAGING: XR Chest 1 View Result Date: 10/17/2024 Impression: No acute finding CRITICAL RESULT: No. COMMUNICATION: Per this written report. Drafted by Brandin Morales MD on 10/17/2024 4:39 PM Final report signed by Brandin Morales MD on 10/17/2024 4:40 PM EKG shows sinus tachy with occasional PACs. Assessment/Plan Assessment / Plan Whitney Presley is a 34 y.o. at 33w4d presenting with shortness of breath and chest pain. She has been following with MFM, cardiology, and nephrology who have been working to keep her electrolytes under control while working to get her to target delivery date of 37w0d for IOL at her local hospital. EKG was baseline and she had normal chest xray with mostly unremarkable cardiac labs besides d-dimer of 2.33. 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 - Currently managed by internal medicine provider at OSH, has seen Nephrology at for consult as well - Currently receiving 160 mEq potassium every other day at outside hospital with PO repletion of magnesium and potassium daily - Reports last infusion 10/16 prior to admission - Significant electrolyte disturbances on admission including potassium of 2.5 and magnesium of 1.4 - Generalized symptoms including N/V, SOA, tingling as described below PLAN: - Telemetry monitoring due to electrolyte disturbances - Trend BMP, electrolytes with repletion as indicated - Due to complexity of repletion in the setting of hyperaldosteronism, telemetry changes, and related symptoms, Hospital Medicine consulted for assistance with adequate repletion of electrolytes # Tachycardia - Seen by Dr. Block with Cardiology 09/26 - Reports history of tachycardia and arrhythmias during hospitalizations of electrolyte disturbances PLAN: - Consider cardiology consult while inpatient - Telemetry as above # Chest pain # Dyspnea - Endorses chest pressure with shortness of air - Episodic dizziness - Symptoms similar to prior episodes of electrolyte abnormalities - Trop and BNP WNL - D-dimer 2.33 - Vitals normal on arrival PLAN: - EKG and chest xray pending - Will give GI cocktail to see if improvement in symptoms and with her cholestasis hx # ICP - Bile acids 14 10/03 - On ursodiol at home - LFTs elevated today at 93/82 # FGR - FGR diagnosed at OSH by US 10/14 by EFW 9% - Updated growth obtained 10/17 with AC 1%, EFW 15% # Status - Non-reactive NST in clinic today - Sent for BPP which was 07/14 off for breathing - Non-reactive tracing while in OB ED - Repeat BPP 10/18 # Prior C/S x1 - prior c/s for bradycardia - x2, x2 - Consented for TOLAC # Desires sterilization - KMA signed in clinic 09/23 and in media tab DISPO: Admit to labor and delivery for further evaluation and management. Please contact first-call provider on [employer] Secure Chat for questions or concerns. For emergencies [place] [phone]. Jasen Li DO Family Medicine, PGY-1 [facility] Chinyere Cordova MD Obstetrics and Gynecology, PGY-3 [1] Past Medical History: Diagnosis Date Maternal [...] TOOTH EXTRACTION N/A Oral Surgery Tooth Extraction [employer] [3] Social History Tobacco Use Smoking status: Never Passive exposure: Never Smokeless tobacco: Never Vaping Use Vaping status: Never Used Substance Use Topics Alcohol use: Never Drug use: Never [4] Family History Problem Relation Name Age [...] - Other Other Known health problems: none [5] Allergies Allergen Reactions Bismuth Subsalicylate Other - please document in the comment field, Unknown - Patient states they do not know rxn details and Swelling na Tobacco Other - please document in the comment field and Shortness of breath SOB when exposed to smoke, contact dermatitis with skin contact Peanuts [Peanut Allergen Powder-Dnfp] Hives Cosigned by Laury Cruz MD at 10/18/2024 12:26 PM EDT Associated attestation - Laury Cruz MD - 10/18/2024 12:26 PM EDT I saw and evaluated the patient. I discussed the case with the resident/fellow and agree with the findings and plan as documented. Much of the patient's complaints at this time are likely related to her hypokalemia and hypomagnesemia. Will aggressively replace. FHRT reassuring. Repeat BIOPHYSICAL PROFILE today 09/13. documented in this encounter Plan of Treatment Upcoming Encounters Date Type Department Care Team (Late st Contact Info) Description 10/31/2024 Hospital Encounter [facility] Delivery [address] [place] [address] 11/14/2024 11:15 AM EDT Visit Medical Office Building Obstetrics and Gynecology [address], [address] [place] [address] Nneka Gipson MD [address] [place] [address] 12/25/2024 1:00 PM EST Office Visit [facility] Nephrology, Bone & Mineral Metabolism [address], [address] [place] [address] Pending Results Name Type Priority Associated Diagnoses Date /Time Aldosterone, urine, 24 hour Lab Routine 10/19/2024 2:42 PM EDT Scheduled Orders Name Type Priority Associated Diagnoses Orde r Schedule Aldosterone, urine, 24 hour Lab Routine Once (Lab) for 1 Occurrences starting 10/19/2024 until 10/19/2024 documented as of this encounter Procedures Procedure Name Priority Date/Time Associated Diagnosis Comments HERPES SIMPLEX VIRUS 1/2 QUALITATIVE BY PCR, SERUM Routine 10/19/2024 9:28 PM EDT BROOKE MEJIAS VIRUS (EBV) QUANTITATIVE PCR Routine 10/19/2024 9:28 PM EDT CYTOMEGALOVIRUS (CMV) QUANTITATIVE PCR Routine 10/19/2024 9:28 PM EDT PHOSPHORUS, PLASMA Timed 10/19/2024 9: 28 PM EDT MAGNESIUM, PLASMA Timed 10/19/2024 9:2 8 PM EDT BASIC METABOLIC PANEL, PLASMA Timed 10/19/2024 9:28 PM EDT ECG ADULT STAT 10/19/2024 6:45 PM EDT PHOSPHORUS, PLASMA Timed 10/19/2024 5: 12 PM EDT MAGNESIUM, PLASMA Timed 10/19/2024 5:1 2 PM EDT HEPATIC FUNCTION PANEL STAT Add-on 5:12 PM EDT BASIC METABOLIC PANEL, PLASMA Timed 10/19/2024 5:12 PM EDT US ABDOMEN FOCUSED REGION Routine 10/19/2024 4:42 PM EDT PHOSPHORUS, 24 HR URINE Routine 10/20/19 2:43 PM EDT ALBUMIN-CREATININE RATIO, 24 HR URINE Routine 10/19/2024 2:43 PM EDT CALCIUM, 24 HOUR URINE Routine 2:43 PM EDT CREATININE, 24 HOUR URINE Routine 10/19/2024 2:43 PM EDT SODIUM, URINE, 24 HOUR Routine 2:43 PM EDT PROTEIN, URINE, 24 HOUR Routine 10/20/19 2:43 PM EDT POTASSIUM, URINE, 24 HOUR Routine 10/19/2024 2:43 PM EDT MAGNESIUM, 24 HOUR URINE Routine 10/19/2024 2:43 PM EDT CHLORIDE, 24 HOUR URINE Routine 10/20/19 2:43 PM EDT PHOSPHORUS, PLASMA Add-On 10/19/2024 7: 03 AM EDT PHOSPHORUS, PLASMA Timed 10/19/2024 7: 03 AM EDT MAGNESIUM, PLASMA Add-On 10/19/2024 7:0 3 AM EDT MAGNESIUM, PLASMA Timed 10/19/2024 7:0 3 AM EDT BASIC METABOLIC PANEL, PLASMA Timed 10/19/2024 7:03 AM EDT ALDOSTERONE Routine 10/18/2024 10:56 PM EDT PLASMA RENIN ACTIVITY, LC/MS/MS (SO) Routine 10/18/2024 10:56 PM EDT PHOSPHORUS, PLASMA Timed 10/18/2024 10 :56 PM EDT MAGNESIUM, PLASMA Timed 10/18/2024 10: 56 PM EDT BASIC METABOLIC PANEL, PLASMA Timed 10/18/2024 10:56 PM EDT PHOSPHORUS, PLASMA Timed 10/18/2024 6: 30 PM EDT MAGNESIUM, PLASMA Timed 10/18/2024 6:3 0 PM EDT BASIC METABOLIC PANEL, PLASMA Timed 10/18/2024 6:30 PM EDT GROUP B STREPTOCOCCUS BY PCR Routine 10/18/2024 1:47 PM EDT PHOSPHORUS, PLASMA Timed 10/18/2024 1: 47 PM EDT MAGNESIUM, PLASMA Timed 10/18/2024 1:4 7 PM EDT BASIC METABOLIC PANEL, PLASMA Timed 10/18/2024 1:47 PM EDT PHOSPHORUS, PLASMA Timed 10/18/2024 1: 46 PM EDT MAGNESIUM, PLASMA Timed 10/18/2024 1:4 6 PM EDT BASIC METABOLIC PANEL, PLASMA Timed 10/18/2024 1:46 PM EDT ECHO, ADULT TRANSTHORACIC COMPLETE Routine 10/18/2024 11:40 AM EDT POCT GLUCOSE METER UNSOLICITED RESULTS Routine 10/18/2024 9:42 AM EDT EXTRA TUBE LIGHT GREEN TOP Routine 10/18/2024 9:14 AM EDT EXTRA TUBES Routine 10/18/2024 9:14 AM EDT PHOSPHORUS, PLASMA Timed 10/18/2024 9: [...] AM EDT BLOOD GAS PANEL, VENOUS Routine 10/19/19 25 3:38 AM EDT BASIC METABOLIC PANEL, PLASMA Timed 10/18/2024 3:38 AM EDT TROPONIN T, HIGH SENSITIVITY, 2 HOUR, PLASMA Timed 10/18/2024 1:12 AM EDT BILE ACIDS, TOTAL STAT 10/18/2024 1:1 2 AM EDT GROUP A STREPTOCOCCUS BY PCR Routine 10/17/2024 11:25 PM EDT ECG ADULT STAT 10/17/2024 10:50 PM EDT TROPONIN T, HIGH SENSITIVITY, 0 HOUR, PLASMA, REFLEX TO 2 HOUR STAT 10/17/2024 10:41 PM EDT CBC W/O DIFFERENTIAL STAT 10/17/2024 10:41 PM EDT MAGNESIUM, PLASMA STAT Add-on 10/17/2024 10: 41 PM EDT BLOOD GAS PANEL, VENOUS STAT 10/18/19 25 10:41 PM EDT COMPREHENSIVE METABOLIC PANEL, PLASMA STAT 10/17/2024 10:41 PM EDT SARS COV-2/COVID-19 BY PCR STAT 10/17/2024 8:50 PM EDT NASOPHARYNGEAL RESPIRATORY PANEL STAT 10/17/2024 [...] documented in this encounter Results * (ABNORMAL) Herpes Simplex Virus by PCR (Serum) (10/19/2024 9:28 PM EDT) Herpes Simplex Virus 1 (HSV-1) PCR Result Detected(AA) Not Detected 10/21/2024 11:30 AM EDT [facility] Comment:Previously prelim ve rified as Not Detected on 10/20/2024 at 1221 EDT. Herpes Simplex Virus 2 (HSV-2) PCR Result Not Detected Not Detected 10/21/2024 11:30 AM EDT [facility] Serum Venous blood specimen / Unknown 10/19/2024 9:28 PM EDT 10/19/2024 11:58 PM EDT Narrative [facility] - 10/21/2024 11:30 AM EDT This PCR assay was developed and its performance characteristics determined by [facility] as appropriate for clinical purposes. This assay has not been cleared or approved by the FDA, but is performed in a CLIA regulated laboratory that is qualified to perform high-complexity testing. This PCR assay was developed and its performance characteristics determined by [facility] as appropriate for clinical purposes. This assay has not been cleared or approved by the FDA, but is performed in a CLIA regulated laboratory that is qualified to perform high-complexity testing. This PCR assay was developed and its performance characteristics determined by [facility] as appropriate for clinical purposes. This assay has not been cleared or approved by the FDA, but is performed in a CLIA regulated laboratory that is qualified to perform high-complexity testing. Hilton Montelongo MD LAB MICROBIOLOGY - GENERAL OR DERABLES Final Result [facility] [address] [place] [address] * Brooke Mejias Virus (EBV) Quantitative PCR (10/19/2024 9:28 PM EDT) Brooke Meijas Virus, Blood, Quant DNA Interpretation Not Detected Not Detected 10/23/2024 12:34 PM EDT [facility] Blood Venous blood specimen / Unknown Venipuncture / Unknown 10/19/2024 9:28 PM EDT 10/19/2024 11:58 PM EDT Narrative [facility] - 10/23/2024 12:34 PM EDT EBV Linear Range: 2.7 to 6.7 log10 IU/mL (500 to 5 x 10e6 IU/mL) The limit of Detection (LOD) of this qPCR assay is 313 IU/mL [2.5 log10 IU/mL] and the Limit of Quantitation (LOQ) is 500 IU/mL [2.7 log10 IU/mL]. Results should be used in conjunction with clinical findings and should not be used as the sole basis for a diagnosis or treatment decision. This PCR assay was developed and it's performance characteristics determined by [facility] as appropriate for clinical purposes. This assay has not been cleared or approved by the FDA, but is performed in a CLIA regulated laboratory that is qualified to perform high-complexity testing. EBV Linear Range: 2.7 to 6.7 log10 IU/mL (500 to 5 x 10e6 IU/mL) The limit of Detection (LOD) of this qPCR assay is 313 IU/mL [2.5 log10 IU/mL] and the Limit of Quantitation (LOQ) is 500 IU/mL [2.7 log10 IU/mL]. Results should be used in conjunction with clinical findings and should not be used as the sole basis for a diagnosis or treatment decision. This PCR assay was developed and it's performance characteristics determined by [facility] as appropriate for clinical purposes. This assay has not been cleared or approved by the FDA, but is performed in a CLIA regulated laboratory that is qualified to perform high-complexity testing. Hilton Montelongo MD LAB BLOOD ORDERABLES Final Re sult Performing Organization Address [facility]/ZIP Co de Phone Number [facility] [address] [place] [address] * Cytomegalovirus (CMV) Quantitative PCR (10/19/2024 9:28 PM EDT) [facility] Cytomegalovirus (CMV) Quantitative Interpretation Not Detected Not Detected 10/21/2024 12:44 PM EDT [facility] Blood Venous blood specimen / Unknown Venipuncture / Unknown 10/19/2024 9:28 PM EDT 10/19/2024 11:58 PM EDT Narrative [facility] - 10/21/2024 12:44 PM EDT The [employer] M2000 CMV test is a Real Time in vitro nucleic acid amplification test for the quantitation of Cytomegalovirus (CMV) DNA in human plasma in CMV infected individuals. It is intended to quantify CMV in patients who are infected with this virus. The dynamic range for this test is log10 = 1.70 to 8.19 and/or 50 to 156,000,000 IU/mL. The limit of detection (LOD) for this assay is 31.20 IU/mL and the limit of quantitation (LOQ) is 50 IU/mL. This assay is FDA approved for clinical use. Hilton Montelongo MD LAB BLOOD ORDERABLES Final Re sult Performing Organization Address [facility] Co de Phone Number [facility] [address] [place] [address] * Phosphorus, Plasma (10/19/2024 9:28 PM EDT) [facility] Phosphorus, Plasma 2.5 2.5 - 4.5 mg/dL 10/19/2024 10:07 PM EDT [facility] Blood Venous blood specimen / Unknown Venipuncture / Unknown 10/19/2024 9:28 PM EDT 10/19/2024 9:38 PM EDT us Santos Herrmann MD LAB BLOOD ORDERABLES Final Resu lt Performing Organization Address City/[facility]/ZIP Co de Phone Number [facility] [address] [place] [address] * (ABNORMAL) Magnesium (10/19/2024 9:28 PM EDT) Magnesium, Plasma 1.7(L) 1.9 - 2.4 mg/dL 10/19/2024 10:07 PM EDT [facility] Blood Venous blood specimen / Unknown Venipuncture / Unknown 10/19/2024 9:28 PM EDT 10/19/2024 9:38 PM EDT us Santos Herrmann MD LAB BLOOD ORDERABLES Final Resu lt Performing Organization Address [facility]/ZIP Co de Phone Number [facility] [address] [place] [address] * (ABNORMAL) Basic metabolic panel (10/19/2024 9:28 PM EDT) Glucose, Plasma 78 74 - 99 mg/dL 10/19/2024 10:07 PM EDT [facility] BUN, Plasma 4(L) 7 - 21 mg/dL 10/19/2024 10:07 PM EDT [facility] Creatinine, Plasma 0.61 0.60 - 1.10 mg/dL 10/19/2024 10:07 PM EDT [facility] BUN/Creatinine Ratio 7 10/19/2024 10:07 PM EDT [facility] Sodium, Plasma 137 136 - 145 mmol/L 10/19/2024 10:07 PM EDT [facility] Potassium, Plasma 4.3 3.6 - 4.9 mmol/L 10/19/2024 10:07 PM EDT [facility] Chloride, Plasma 108(H) 97 - 107 mmol/L 10/19/2024 10:07 PM EDT [facility] CO2, Plasma 20(L) 22 - 29 mmol/L 10/19/2024 10:07 PM EDT [facility] Anion Gap 9 6 - 16 mmol/L 10/19/2024 10:07 PM EDT [facility] Total Calcium, Plasma 7.8(L) 8.9 - 10.2 mg/dL 10/19/2024 10:07 PM EDT [facility] eGFRcr 121.2 mL/min/1.7 3m*2 10/19/2024 10:07 PM EDT [facility] Comment:Reported eGFRcr in m L/min/1.73m2 is based the CKD-EPI 2020 equation that does not use a race coefficient. Blood Venous blood specimen / Unknown Venipuncture / Unknown 10/19/2024 9:28 PM EDT 10/19/2024 9:38 PM EDT us Santos Herrmann MD LAB BLOOD ORDERABLES Final Resu lt Performing Organization Address City/[facility]/ZIP Co de Phone Number [facility] [address] [place] [address] * ECG Adult (10/19/2024 6:45 PM EDT) EKG DIAGNOSIS CLASS Normal MUSE ECG Ventricular Rate 82 BPM MUSE ECG Atrial Rate 82 BPM MUSE ECG AL Interval 138 ms MUSE ECG QRSD Interval 80 ms MUSE ECG QT Interval 360 ms MUSE ECG QTC Interval 420 ms MUSE ECG P [place] 46 degrees MUSE ECG R [place] 29 degrees MUSE ECG T Wave [place] 36 degrees MUSE ECG Diagnosis Normal sinus rhythm MUSE ECG Diagnosis Normal ECG MUSE ECG Diagnosis MUSE ECG Diagnosis Confirmed by Noel Osman ([id number]) on 10/20/2024 12:15:29 PM MUSE ECG 10/19/2024 6:45 PM EDT 10/20/2024 12:15 PM EDT us Hilton Montelongo MD ECG ORDERABLES Final Result [facility]USE ECG * (ABNORMAL) Hepatic function panel (10/19/2024 5:12 PM EDT) Direct Bilirubin, Plasma <0.2 <=0.3 mg/dL 10/19/2024 7:32 PM EDT [facility] Alkaline Phosphatase, Plasma 68 35 - 104 U/L 10/19/2024 7:32 PM EDT [facility] Total Bilirubin, Plasma 0.3 0.2 - 1.1 mg/dL 10/19/2024 7:32 PM EDT [facility] Albumin, Plasma 2.5(L) 3.5 - 5.2 g/dL 10/19/2024 7:32 PM EDT [facility] Total Protein 5.2(L) 6.3 - 7.9 g/dL 10/19/2024 7:32 PM EDT [facility] ALT, Plasma 48(H) 10 - 35 U/L 10/19/2024 7:32 PM EDT [facility] AST, Plasma 35 10 - 35 U/L 10/19/2024 7:32 PM EDT [facility] Blood Venous blood specimen / Unknown Venipuncture / Unknown 10/19/2024 5:12 PM EDT 10/19/2024 5:30 PM EDT us Hilton Montelongo MD LAB BLOOD ORDERABLES Final Re sult Performing Organization Address City/[facility]/ZIP Co de Phone Number [facility] [address] [place] [address] * (ABNORMAL) Phosphorus, Plasma (10/19/2024 5:12 PM EDT) Phosphorus, Plasma 2.2(L) 2.5 - 4.5 mg/dL 10/19/2024 6:02 PM EDT [facility] Blood Venous blood specimen / Unknown Venipuncture / Unknown 10/19/2024 5:12 PM EDT 10/19/2024 5:30 PM EDT us Santos Herrmann MD LAB BLOOD ORDERABLES Final Resu lt [facility] [address] [place] [address] * (ABNORMAL) Magnesium (10/19/2024 5:12 PM EDT) Magnesium, Plasma 1.5(L) 1.9 - 2.4 mg/dL 10/19/2024 6:02 PM EDT [facility] Blood Venous blood specimen / Unknown Venipuncture / Unknown 10/19/2024 5:12 PM EDT 10/19/2024 5:30 PM EDT us Santos Herrmann MD LAB BLOOD ORDERABLES Final Resu lt [facility] [address] [place] [address] * (ABNORMAL) Basic metabolic panel (10/19/2024 5:12 PM EDT) Pathologist [facility] Glucose, Plasma 121(H) 74 - 99 mg/dL 10/19/2024 6:02 PM EDT [facility] BUN, Plasma 4(L) 7 - 21 mg/dL 10/19/2024 6:02 PM EDT [facility] Creatinine, Plasma 0.58(L) 0.60 - 1.10 mg/dL 10/19/2024 6:02 PM EDT [facility] BUN/Creatinine Ratio 7 10/19/2024 6:02 PM EDT [facility] Sodium, Plasma 137 136 - 145 mmol/L 10/19/2024 6:02 PM EDT [facility] Potassium, Plasma 4.0 3.6 - 4.9 mmol/L 10/19/2024 6:02 PM EDT [facility] Chloride, Plasma 105 97 - 107 mmol/L 10/19/2024 6:02 PM EDT [facility] CO2, Plasma 20(L) 22 - 29 mmol/L 10/19/2024 6:02 PM EDT [facility] Anion Gap 12 6 - 16 mmol/L 10/19/2024 6:02 PM EDT [facility] Total Calcium, Plasma 8.0(L) 8.9 - 10.2 mg/dL 10/19/2024 6:02 PM EDT [facility] eGFRcr 122.7 mL/min/1.7 3m*2 10/19/2024 6:02 PM EDT [facility] Comment:Reported eGFRcr in m L/min/1.73m2 is based the CKD-EPI 2020 equation that does not use a race coefficient. Blood Venous blood specimen / Unknown Venipuncture / Unknown 10/19/2024 5:12 PM EDT 10/19/2024 5:30 PM EDT us Santos Herrmann MD LAB BLOOD ORDERABLES Final Resu lt [facility] [address] [place] [address] * US Abdomen Focused Region Liver, GB, Bile Ducts (10/19/2024 4:42 PM EDT) Anatomical Region Laterality Modality Abdomen Ultrasound Impressions 10/19/2024 5:39 PM EDT Diffuse hepatic steatosis. No biliary dilatation CRITICAL RESULT: No. COMMUNICATION: Per this written report. Drafted by Seun Miranda MD on 10/19/2024 5:38 PM Final report signed by Seun Miranda MD on 10/19/2024 5:39 PM Narrative 10/19/2024 5:39 PM EDT CLINICAL INDICATION: Mild transaminitis TECHNIQUE: Focused static and cine grayscale ultrasound images of portions of the abdomen were obtained COMPARISON: None. FINDINGS: There is diffuse increased echogenicity of the imaged liver. The gallbladder is unremarkable. The common bile duct measures 3 mm.: . Procedure Note Seun Miranda MD - 10/19/2024 CLINICAL INDICATION: Mild transaminitis TECHNIQUE: Focused static and cine grayscale ultrasound images of portions of theabdomen were obtained COMPARISON: None. FINDINGS: There is diffuse increased echogenicity of the imaged liver. Thegallbladder is unremarkable. The common bile duct measures 3 mm.: . IMPRESSION: Diffuse hepatic steatosis. No biliary dilatation CRITICAL RESULT: No. COMMUNICATION: Per this written report. Drafted by Seun Miranda MD on 10/19/2024 5:38 PM Final report signed by Seun Miranda MD on 10/19/2024 5:39 PM us Hilton Montelongo MD IMG US PROCEDURES Final Resul t * Total Protein, 24 Hour Urine (10/19/2024 2:43 PM EDT) Protein, Urine <6 mg/dL 10/19/2024 3:39 PM EDT [facility] Total Protein per day 10/19/2024 3:39 PM EDT [facility] Comment:Unable to calculate, at least one value is above or below the detection limit. Hours Of Collection 24 HRS 10/19/2024 3:39 PM EDT [facility] Urine, Volume 2,750 mL 10/19/2024 3:39 PM EDT [facility] Urine Urine specimen obtained by clean catch procedure / Unknown Non-blood Collection / Unknown 10/19/2024 2:43 PM EDT 10/19/2024 2:52 PM EDT Narrative [facility] - 10/19/2024 3:39 PM EDT Reference Range <80 mg/day if bed rest <150 mg/day if ambulatory Santos Herrmann MD LAB URINE ORDERABLES Final Resu lt [facility] [address] [place] [address] * Potassium, Urine, 24 Hour (10/19/2024 2:43 PM EDT) Potassium, Urine 20 mmol/L 10/19/2024 3:39 PM EDT [facility] Hours Of Collection 24 HRS 10/19/2024 3:39 PM EDT [facility] Urine, Volume 2,750 mL 10/19/2024 3:39 PM EDT [facility] Potassium per day, Urine 55 18 - 58 mmol/d 10/19/2024 3:39 PM EDT [facility] Urine Urine specimen obtained by clean catch procedure / Unknown Non-blood Collection / Unknown 10/19/2024 2:43 PM EDT 10/19/2024 2:52 PM EDT Santos Herrmann MD LAB URINE ORDERABLES Final Resu lt [facility] [address] [place] [address] * Sodium, 24 Hour, Urine (10/19/2024 2:43 PM EDT) Sodium, Urine 45 mmol/L 10/19/2024 3:39 PM EDT [facility] Sodium per day 124 48 - 168 mmol/d 10/19/2024 3:39 PM EDT [facility] Hours Of Collection 24 HRS 10/19/2024 3:39 PM EDT [facility] Urine, Volume 2,750 mL 10/19/2024 3:39 PM EDT [facility] Urine Urine specimen obtained by clean catch procedure / Unknown Non-blood Collection / Unknown 10/19/2024 2:43 PM EDT 10/19/2024 2:52 PM EDT us Santos Herrmann MD LAB URINE ORDERABLES Final Resu lt Performing Organization Address [facility] Co de Phone Number [facility] [address] [place] [address] * Phosphorus, Urine, 24 Hour (10/19/2024 2:43 PM EDT) Phosphorus, Urine 29.1 mg/dL 10/19/2024 3:24 PM EDT [facility] Phosphorus per day, Urine 0.8 0.4 - 1.3 g/d 10/19/2024 3:24 PM EDT [facility] Hours Of Collection 24 HRS 10/19/2024 3:24 PM EDT [facility] Urine, Volume 2,750 mL 10/19/2024 3:24 PM EDT [facility] Urine Urine specimen obtained by clean catch procedure / Unknown Non-blood Collection / Unknown 10/19/2024 2:43 PM EDT 10/19/2024 2:53 PM EDT us Santos Herrmann MD LAB URINE ORDERABLES Final Resu lt Performing Organization Address [facility]/ZIP Co de Phone Number [facility] [address] [place] [address] * (ABNORMAL) Magnesium, urine, 24 hour (10/19/2024 2:43 PM EDT) Magnesium, Random Urine 24.3 mg/dL 10/19/2024 3:24 PM EDT [facility] Magnesium per day 668.3(H) 70.0 - 120.0 mg/d 10/19/2024 3:24 PM EDT [facility] Hours Of Collection 24 HRS 10/19/2024 3:24 PM EDT [facility] Urine, Volume 2,750 mL 10/19/2024 3:24 PM EDT [facility] Urine Urine specimen obtained by clean catch procedure / Unknown Non-blood Collection / Unknown 10/19/2024 2:43 PM EDT 10/19/2024 2:53 PM EDT Santos Herrmann MD LAB URINE ORDERABLES Final Resu lt Performing Organization Address [facility]/ZIP Co de Phone Number [facility] [address] [place] [address] * Creatinine, 24 Hour Urine (10/19/2024 2:43 PM EDT) Creatinine, Urine 30 mg/dL 10/19/2024 3:39 PM EDT [facility] Creatinine per day, Urine 825 500 - 1,600 mg/d 10/19/2024 3:39 PM EDT [facility] Hours Of Collection 24 HRS 10/19/2024 3:39 PM EDT [facility] Urine, Volume 2,750 mL 10/19/2024 3:39 PM EDT [facility] Urine Urine specimen obtained by clean catch procedure / Unknown Non-blood Collection / Unknown 10/19/2024 2:43 PM EDT 10/19/2024 2:52 PM EDT us Santos Herrmann MD LAB URINE ORDERABLES Final Resu lt Performing Organization Address [facility]/ZIP Co de Phone Number [facility] [address] [place] [address] * Chloride, 24 Hour Urine (10/19/2024 2:43 PM EDT) Chloride, Urine <20 mmol/L 3:39 PM EDT [facility] Hours Of Collection 24 HRS 10/19/2024 3:39 PM EDT [facility] Urine, Volume 2,750 mL 10/19/2024 3:39 PM EDT [facility] Chloride per day, Urine 10/19/2024 3:39 PM EDT [facility] Comment:Unable to calculate, at least one value is above or below the detection limit. Urine Urine specimen obtained by clean catch procedure / Unknown Non-blood Collection / Unknown 10/19/2024 2:43 PM EDT 10/19/2024 2:52 PM EDT us Santos Herrmann MD LAB URINE ORDERABLES Final Resu lt Performing Organization Address City/[facility]/ZIP Co de Phone Number [facility] [address] [place] [address] * Calcium, 24 Hour Urine (10/19/2024 2:43 PM EDT) Calcium, Urine 3.1 mg/dL 10/19/2024 3:24 PM EDT [facility] Calcium per day, Urine 85 mg/day 10/19/2024 3:24 PM EDT [facility] Hours Of Collection 24 HRS 10/19/2024 3:24 PM EDT [facility] Urine, Volume 2,750 mL 10/19/2024 3:24 PM EDT [facility] Urine Urine specimen obtained by clean catch procedure / Unknown Non-blood Collection / Unknown 10/19/2024 2:43 PM EDT 10/19/2024 2:53 PM EDT Narrative [facility] - 10/19/2024 3:24 PM EDT Free Ca diet 5 - 40 mg/d Low to average Ca diet 50 - 150 mg/d Average Ca diet 100 - 300 mg/d us Santos Herrmann MD LAB URINE ORDERABLES Final Resu lt [facility] [address] [place] [address] * Albumin-creatinine ratio, 24 hr urine (10/19/2024 2:43 PM EDT) Microalbumin, Urine <1.2 <1.9 mg/dL 10/19/2024 3:39 PM EDT [facility] Albumin per day 3:39 PM EDT [facility] Comment:Unable to calculate, at least one value is above or below the detection limit. Microalbumin Excretion Rate 10/19/2024 3:39 PM EDT [facility] Comment:Unable to calculate, at least one value is above or below the detection limit. Creatinine, Urine 30 mg/dL 025 3:39 PM EDT [facility] Creatinine, 24H Ur 825 500 - 1,600 mg/d 10/19/2024 3:39 PM EDT [facility] Comment:Unable to calculate, at least one value is above or below the detection limit. Albumin/Creatinin e Ratio 10/19/2024 3:39 PM EDT [facility] Comment:Unable to calculate, at least one value is above or below the detection limit. Hours Of Collection 24 HRS 10/19/2024 3:39 PM EDT [facility] Urine, Volume 2,750 mL 10/19/2024 3:39 PM EDT [facility] Urine Urine specimen obtained by clean catch procedure / Unknown Non-blood Collection / Unknown 10/19/2024 2:43 PM EDT 10/19/2024 2:52 PM EDT us Santos Herrmann MD LAB URINE ORDERABLES Final Resu lt Performing Organization Address City/[facility]/ZIP Co de Phone Number [facility] [address] [place] [address] * Magnesium (10/19/2024 7:03 AM EDT) Magnesium, Plasma 2.1 1.9 - 2.4 mg/dL 10/19/2024 7:54 AM EDT [facility] Blood Venous blood specimen / Unknown Venipuncture / Unknown 10/19/2024 7:03 AM EDT 10/19/2024 7:06 AM EDT us Hilton Montelongo MD LAB BLOOD ORDERABLES Final Re sult [facility] [address] [place] [address] * Phosphorus (10/19/2024 7:03 AM EDT) Phosphorus, Plasma 3.3 2.5 - 4.5 mg/dL 10/19/2024 7:54 AM EDT [facility] Blood Venous blood specimen / Unknown Venipuncture / Unknown 10/19/2024 7:03 AM EDT 10/19/2024 7:06 AM EDT us Hilton Montelongo MD LAB BLOOD ORDERABLES Final Re sult Performing Organization Address [facility]/ZIP Co de Phone Number [facility] [address] [place] [address] * Phosphorus, Plasma (10/19/2024 7:03 AM EDT) Phosphorus, Plasma 3.3 2.5 - 4.5 mg/dL 10/19/2024 7:32 AM EDT [facility] Blood Venous blood specimen / Unknown Venipuncture / Unknown 10/19/2024 7:03 AM EDT 10/19/2024 7:06 AM EDT us Hilton Montelongo MD LAB BLOOD ORDERABLES Final Re sult [facility] [address] [place] [address] * Magnesium (10/19/2024 7:03 AM EDT) Magnesium, Plasma 2.1 1.9 - 2.4 mg/dL 10/19/2024 7:32 AM EDT [facility] Blood Venous blood specimen / Unknown Venipuncture / Unknown 10/19/2024 7:03 AM EDT 10/19/2024 7:06 AM EDT us Hilton Montelongo MD LAB BLOOD ORDERABLES Final Re sult [facility] [address] [place] [address] * (ABNORMAL) Basic metabolic panel (10/19/2024 7:03 AM EDT) Glucose, Plasma 88 74 - 99 mg/dL 10/19/2024 7:36 AM EDT [facility] BUN, Plasma 6(L) 7 - 21 mg/dL 10/19/2024 7:36 AM EDT [facility] Creatinine, Plasma 0.60 0.60 - 1.10 mg/dL 10/19/2024 7:36 AM EDT [facility] BUN/Creatinine Ratio 10 10/19/2024 7:36 AM EDT [facility] Sodium, Plasma 139 136 - 145 mmol/L 10/19/2024 7:36 AM EDT [facility] Potassium, Plasma 3.5(L) 3.6 - 4.9 mmol/L 10/19/2024 7:36 AM EDT [facility] Chloride, Plasma 105 97 - 107 mmol/L 10/19/2024 7:36 AM EDT [facility] CO2, Plasma 24 22 - 29 mmol/L 10/19/2024 7:36 AM EDT [facility] Anion Gap 10 6 - 16 mmol/L 10/19/2024 7:36 AM EDT [facility] Total Calcium, Plasma 8.3(L) 8.9 - 10.2 mg/dL 10/19/2024 7:36 AM EDT [facility] eGFRcr 121.7 mL/min/1.7 3m*2 10/19/2024 7:36 AM EDT [facility] Comment:Reported eGFRcr in m L/min/1.73m2 is based the CKD-EPI 2020 equation that does not use a race coefficient. Blood Venous blood specimen / Unknown Venipuncture / Unknown 10/19/2024 7:03 AM EDT 10/19/2024 7:06 AM EDT Hilton Montelongo MD LAB BLOOD ORDERABLES Final Re sult [facility] [address] [place] [address] * Phosphorus, Plasma (10/18/2024 10:56 PM EDT) Phosphorus, Plasma 3.3 2.5 - 4.5 mg/dL 10/18/2024 11:57 PM EDT [facility] Blood Venous blood specimen / Unknown Venipuncture / Unknown 10/18/2024 10:56 PM EDT 10/18/2024 11:07 PM EDT Hilton Montelongo MD LAB BLOOD ORDERABLES Final Re sult Performing Organization Address City/[facility]/ZIP Co de Phone Number [facility] [address] [place] [address] * (ABNORMAL) Magnesium (10/18/2024 10:56 PM EDT) Magnesium, Plasma 3.1(H) 1.9 - 2.4 mg/dL 10/18/2024 11:57 PM EDT [facility] Blood Venous blood specimen / Unknown Venipuncture / Unknown 10/18/2024 10:56 PM EDT 10/18/2024 11:07 PM EDT us Hilton Montelongo MD LAB BLOOD ORDERABLES Final Re sult [facility] [address] [place] [address] * (ABNORMAL) Basic metabolic panel (10/18/2024 10:56 PM EDT) Glucose, Plasma 104(H) 74 - 99 mg/dL 10/18/2024 11:57 PM EDT [facility] BUN, Plasma 7 7 - 21 mg/dL 10/18/2024 11:57 PM EDT [facility] Creatinine, Plasma 0.63 0.60 - 1.10 mg/dL 10/18/2024 11:57 PM EDT [facility] BUN/Creatinine Ratio 11 10/18/2024 11:57 PM EDT [facility] Sodium, Plasma 136 136 - 145 mmol/L 10/18/2024 11:57 PM EDT [facility] Potassium, Plasma 3.5(L) 3.6 - 4.9 mmol/L 10/18/2024 11:57 PM EDT [facility] Chloride, Plasma 100 97 - 107 mmol/L 10/18/2024 11:57 PM EDT [facility] CO2, Plasma 26 22 - 29 mmol/L 10/18/2024 11:57 PM EDT [facility] Anion Gap 10 6 - 16 mmol/L 10/18/2024 11:57 PM EDT [facility] Total Calcium, Plasma 7.8(L) 8.9 - 10.2 mg/dL 10/18/2024 11:57 PM EDT [facility] eGFRcr 120.3 mL/min/1.7 3m*2 10/18/2024 11:57 PM EDT [facility] Comment:Reported eGFRcr in m L/min/1.73m2 is based the CKD-EPI 2020 equation that does not use a race coefficient. Blood Venous blood specimen / Unknown Venipuncture / Unknown 10/18/2024 10:56 PM EDT 10/18/2024 11:07 PM EDT us Hilton Montelongo MD LAB BLOOD ORDERABLES Final Re sult [facility] [address] [place] [address] * (ABNORMAL) Aldosterone (10/18/2024 10:56 PM EDT) Aldosterone 115.0(H) 4.0 - 31.0 ng/dL 10/21/2024 8:21 AM EDT [facility] Blood Venous blood specimen / Unknown Venipuncture / Unknown 10/18/2024 10:56 PM EDT 10/18/2024 11:29 PM EDT Santos Herrmann MD LAB BLOOD ORDERABLES Final Resu lt [facility] [address] [place] [address] * (ABNORMAL) Plasma Renin Activity (LC/MS/MS) (10/18/2024 10:56 PM EDT) PRA RESULT 30.67(H) 0.25 - 5.82 ng/mL/h 10/24/2024 7:47 PM EDT [facility] ([facility] Comment: This test was developed and its analytical performance characteristics have been determined by [employer]. It has not been cleared or approved by the FDA. This assay has been validated pursuant to the CLIA regulations and is used for clinical purposes. Blood Venous blood specimen / Unknown Venipuncture / Unknown 10/18/2024 10:56 PM EDT 10/18/2024 11:08 PM EDT Narrative [facility] ([facility]) - 10/24/2024 7:47 PM EDT Performing Organization Information: Site ID: [id number] Name: [facility] Address: [address] [place] [id number] Director: Malik Islas MD, PhD Santos Herrmann MD LAB BLOOD ORDERABLES Final Resu lt Performing Organization Address City/[facility]/ZIP Co de Phone Number [facility] ([facility]) [employer] [address] * (ABNORMAL) Phosphorus, Plasma (10/18/2024 6:30 PM EDT) Phosphorus, Plasma 1.8(L) 2.5 - 4.5 mg/dL 10/18/2024 7:14 PM EDT [facility] Blood Venous blood specimen / Unknown Venipuncture / Unknown 10/18/2024 6:30 PM EDT 10/18/2024 6:42 PM EDT Hilton Montelongo MD LAB BLOOD ORDERABLES Final Re sult [facility] [address] [place] [address] * (ABNORMAL) Magnesium (10/18/2024 6:30 PM EDT) Magnesium, Plasma 2.5(H) 1.9 - 2.4 mg/dL 10/18/2024 7:14 PM EDT [facility] Blood Venous blood specimen / Unknown Venipuncture / Unknown 10/18/2024 6:30 PM EDT 10/18/2024 6:42 PM EDT Hilton Montelongo MD LAB BLOOD ORDERABLES Final Re sult Performing Organization Address City/[facility]/ZIP Co de Phone Number [facility] [address] [place] [address] * (ABNORMAL) Basic metabolic panel (10/18/2024 6:30 PM EDT) Glucose, Plasma 100(H) 74 - 99 mg/dL 10/18/2024 7:14 PM EDT [facility] BUN, Plasma 7 7 - 21 mg/dL 10/18/2024 7:14 PM EDT [facility] Creatinine, Plasma 0.65 0.60 - 1.10 mg/dL 10/18/2024 7:14 PM EDT [facility] BUN/Creatinine Ratio 11 10/18/2024 7:14 PM EDT [facility] Sodium, Plasma 137 136 - 145 mmol/L 10/18/2024 7:14 PM EDT [facility] Potassium, Plasma 3.9 3.6 - 4.9 mmol/L 10/18/2024 7:14 PM EDT [facility] Chloride, Plasma 102 97 - 107 mmol/L 10/18/2024 7:14 PM EDT [facility] CO2, Plasma 25 22 - 29 mmol/L 10/18/2024 7:14 PM EDT [facility] Anion Gap 10 6 - 16 mmol/L 10/18/2024 7:14 PM EDT [facility] Total Calcium, Plasma 8.1(L) 8.9 - 10.2 mg/dL 10/18/2024 7:14 PM EDT [facility] eGFRcr 119.4 mL/min/1.7 3m*2 10/18/2024 7:14 PM EDT [facility] Comment:Reported eGFRcr in m L/min/1.73m2 is based the CKD-EPI 2020 equation that does not use a race coefficient. Blood Venous blood specimen / Unknown Venipuncture / Unknown 10/18/2024 6:30 PM EDT 10/18/2024 6:42 PM EDT Hilton Montelongo MD LAB BLOOD ORDERABLES Final Re sult Performing Organization Address [facility] Co de Phone Number [facility] [address] [place] [address] * Group B Streptococcus by PCR (10/18/2024 1:47 PM EDT) Pathologist [facility] Group B Streptococcus PCR Result Not Detected Not Detected 10/20/2024 7:26 AM EDT [facility] Swab Rectovaginal / Unknown Non-blood Collection / Unknown 10/18/2024 1:47 PM EDT 10/18/2024 1:59 PM EDT Narrative [facility] - 10/20/2024 7:26 AM EDT This test is FDA approved for use with vaginal/rectal swab using the eSwabs. This test is used for clinical purposes. It should not be regarded as investigational or for research. This laboratory is certified under the Clinical Laboratory improvement Amendments of 1988 (CLIA-88 as qualified to perform high complexity clinical laboratory testing. Laury Cruz MD LAB MICROBIOLOGY - GENERAL OR DERABLES Final Result Performing Organization Address [facility] Co de Phone Number [facility] [address] [place] [address] * (ABNORMAL) Phosphorus, Plasma (10/18/2024 1:47 PM EDT) Phosphorus, Plasma 1.5(L) 2.5 - 4.5 mg/dL 10/18/2024 3:05 PM EDT [facility] Blood Venous blood specimen / Unknown Venipuncture / Unknown 10/18/2024 1:47 PM EDT 10/18/2024 2:26 PM EDT us Hilton Montelongo MD LAB BLOOD ORDERABLES Final Re sult Performing Organization Address [facility]/ZIP Co de Phone Number [facility] [address] [place] [address] * (ABNORMAL) Magnesium (10/18/2024 1:47 PM EDT) Magnesium, Plasma 1.7(L) 1.9 - 2.4 mg/dL 10/18/2024 3:05 PM EDT [facility] Blood Venous blood specimen / Unknown Venipuncture / Unknown 10/18/2024 1:47 PM EDT 10/18/2024 2:26 PM EDT us Hilton Montelongo MD LAB BLOOD ORDERABLES Final Re sult Performing Organization Address [facility]/ZIP Co de Phone Number [facility] [address] [place] [address] * (ABNORMAL) Basic metabolic panel (10/18/2024 1:47 PM EDT) Glucose, Plasma 119(H) 74 - 99 mg/dL 10/18/2024 3:05 PM EDT [facility] BUN, Plasma 8 7 - 21 mg/dL 10/18/2024 3:05 PM EDT [facility] Creatinine, Plasma 0.64 0.60 - 1.10 mg/dL 10/18/2024 3:05 PM EDT [facility] BUN/Creatinine Ratio 13 10/18/2024 3:05 PM EDT [facility] Sodium, Plasma 132(L) 136 - 145 mmol/L 10/18/2024 3:05 PM EDT [facility] Potassium, Plasma 3.9 3.6 - 4.9 mmol/L 10/18/2024 3:05 PM EDT [facility] Chloride, Plasma 98 97 - 107 mmol/L 10/18/2024 3:05 PM EDT [facility] CO2, Plasma 23 22 - 29 mmol/L 10/18/2024 3:05 PM EDT [facility] Anion Gap 11 6 - 16 mmol/L 10/18/2024 3:05 PM EDT [facility] Total Calcium, Plasma 8.0(L) 8.9 - 10.2 mg/dL 10/18/2024 3:05 PM EDT [facility] eGFRcr 119.8 mL/min/1.7 3m*2 10/18/2024 3:05 PM EDT [facility] Comment:Reported eGFRcr in m L/min/1.73m2 is based the CKD-EPI 2020 equation that does not use a race coefficient. Blood Venous blood specimen / Unknown Venipuncture / Unknown 10/18/2024 1:47 PM EDT 10/18/2024 2:26 PM EDT Hilton Montelongo MD LAB BLOOD ORDERABLES Final Re sult Performing Organization Address City/[facility]/ZIP Co de Phone Number [facility] [address] [place] [address] * (ABNORMAL) Phosphorus, Plasma (10/18/2024 1:46 PM EDT) Phosphorus, Plasma 1.5(L) 2.5 - 4.5 mg/dL 10/18/2024 3:05 PM EDT [facility] Blood Venous blood specimen / Unknown Venipuncture / Unknown 10/18/2024 1:46 PM EDT 10/18/2024 2:26 PM EDT Hilton Montelongo MD LAB BLOOD ORDERABLES Final Re sult Performing Organization Address [facility]/ZIP Co de Phone Number [facility] [address] [place] [address] * (ABNORMAL) Magnesium (10/18/2024 1:46 PM EDT) Magnesium, Plasma 1.7(L) 1.9 - 2.4 mg/dL 10/18/2024 3:05 PM EDT [facility] Blood Venous blood specimen / Unknown Venipuncture / Unknown 10/18/2024 1:46 PM EDT 10/18/2024 2:26 PM EDT us Hilton Montelongo MD LAB BLOOD ORDERABLES Final Re sult [facility] [address] [place] [address] * (ABNORMAL) Basic metabolic panel (10/18/2024 1:46 PM EDT) Glucose, Plasma 121(H) 74 - 99 mg/dL 10/18/2024 3:05 PM EDT [facility] BUN, Plasma 8 7 - 21 mg/dL 10/18/2024 3:05 PM EDT [facility] Creatinine, Plasma 0.65 0.60 - 1.10 mg/dL 10/18/2024 3:05 PM EDT [facility] BUN/Creatinine Ratio 10/18/2024 3:05 PM EDT [facility] Sodium, Plasma 134(L) 136 - 145 mmol/L 10/18/2024 3:05 PM EDT [facility] Potassium, Plasma 4.0 3.6 - 4.9 mmol/L 10/18/2024 3:05 PM EDT [facility] Chloride, Plasma 100 97 - 107 mmol/L 10/18/2024 3:05 PM EDT [facility] CO2, Plasma 23 22 - 29 mmol/L 10/18/2024 3:05 PM EDT [facility] Anion Gap 11 6 - 16 mmol/L 10/18/2024 3:05 PM EDT [facility] Total Calcium, Plasma 8.0(L) 8.9 - 10.2 mg/dL 10/18/2024 3:05 PM EDT [facility] eGFRcr 119.4 mL/min/1.7 3m*2 10/18/2024 3:05 PM EDT [facility] Comment:Reported eGFRcr in m L/min/1.73m2 is based the CKD-EPI 2020 equation that does not use a race coefficient. Blood Venous blood specimen / Unknown Venipuncture / Unknown 10/18/2024 1:46 PM EDT 10/18/2024 2:26 PM EDT us Hilton Montelongo MD LAB BLOOD ORDERABLES Final Re sult [facility] [address] [place] [address] * ECHO, ADULT TRANSTHORACIC COMPLETE (10/18/2024 11:40 AM EDT) BSA 1.71 m2 [facility] Height 162.6 [facility] Weight 65.8 [facility] LVIDd 34 mm [facility] LVIDs 25 mm [facility] IVSd 8 mm [facility] LVPWd 5 mm [facility] LV MASS(C)D 54 g [facility] CV ECHO LV MASS INDEX 31 g/m2 [facility] LV RWT 0.38 mm [facility] LVOT diam 22 mm [facility] LVOT AREA 3.8 cm2 [facility] MV E Vmax 79.5 cm/s [facility] MV A Vmax 48.8 cm/s [facility] MV E/A 1.6 cm/s [facility] LA dimension 27 mm [facility] RV s' Mihir 12.1 cm/s [facility] TAPSE 16 mm [facility] PA acc time 110 msec [facility] mean PAP 30 mmHg [facility] MV dec slope 763 cm/s2 [facility] MV dec time 100 ms [facility] MV P1/2t 29 ms [facility] MVA(P1/2t) 7.6 cm2 [facility] Ao Root Diam 31 mm [facility] PA AL(ACCEL) 28.2 mmHg [facility] LVLs ap2 6.7 mm [facility] LV Lat e' Velocity 15.4 cm/s [facility] LV Sept e' Mihir 8.1 cm/s [facility] Lat E/e' 5.2 [facility] Sep E/e' 9.8 [facility] Avg E/e' 7.5 [facility] RA MOD 4Ch 16 mL [facility] ZACH 9 mL/m2 [facility] RV GREGORY 16.9 cm2 [facility] RV GIN 8.9 cm2 [facility] RV FAC_phl 47 % [facility] Anatomical Region Laterality Modality Echocardiography Narrative 10/18/2024 2:00 PM EDT Left Ventricle: The left ventricle is normal size. There is normal left ventricular myocardial thickness and mass. The left ventricular systolic function is normal. The LVEF is visually estimated at 55 - 60%. The diastolic function is normal. The left ventricular wall motion is normal. Right Ventricle: The right ventricle is normal in size. The right ventricular systolic function is normal. ] All cardiac valves were reasonably well interrogated with 2D imaging and/or Doppler assessment and no significant valve regurgitation or stenosis is seen. There is no recent study available for direct [id number] comparison. Patient is 33 wks 5 days . Left Ventricle The left ventricle is normal size. There is normal left ventricular myocardial thickness and mass. The left ventricular systolic function is normal. The LVEF is visually estimated at 55 - 60%. The diastolic function is normal. The left ventricular wall motion is normal. Right Ventricle The right ventricle is normal in size. The right ventricular systolic function is normal. Unable to estimate the right ventricular systolic pressure (RVSP) due to inadequate TR signal. Left Atrium The left atrial size is normal with an indexed volume of 16-34 mL/m2. The interatrial septum is intact with no evidence for an atrial septal defect. Right Atrium The right atrial volume index is normal (18-32mL/m2). IVC/SVC Based on the IVC size and respiratory variation, the estimated right atrial pressure is 3mmHg. Mitral Valve The mitral valve leaflets are normal in appearance with no evidence of mitral valve prolapse. There is trace mitral regurgitation. There is no mitral stenosis. Tricuspid Valve The tricuspid valve is normal in appearance. There is trace tricuspid regurgitation. There is no tricuspid stenosis. Aortic Valve The aortic valve appears to be trileaflet. There is no valvular regurgitation. There is no hemodynamically significant valvular aortic stenosis. Pulmonic Valve The pulmonic valve was not well visualized. There is trace pulmonic regurgitation. There is no pulmonic stenosis. Pericardium No pericardial effusion. Great Vessels The aortic root is normal in size. The sinus of Valsalva (aortic root) diameter is 31 mm by leading edge to leading edge method. The ascending aorta is not well visualized. In the maximally visualized portion, the aortic arch appears normal in size. The main pulmonary artery is normal in size. Study Details A complete transthoracic echocardiogram using two-dimensional (2D), m-mode, color and spectral flow Doppler imaging was performed. During the study the apical, parasternal, subcostal and suprasternal view was captured. Overall the study quality was good. Heart rate was tachycardic. Height: 162.6 cm. Weight: 65.8 kg. BSA: 1.71 m2. The heart rhythm during this exam was most suggestive of a sinus rhythm. Study Recommendation All cardiac valves were reasonably well interrogated with 2D imaging and/or Doppler assessment and no significant valve regurgitation or stenosis is seen. There is no recent study available for direct [id number] comparison. us Hilton Montelongo MD CV ECHO PROCEDURES Final Resu lt * POCT glucose meter (10/18/2024 9:42 AM EDT) [facility] POCT Glucose 78 74 - 99 mg/dL 10/18/2024 9:52 AM EDT [facility] Comment:Accuracy of a glucos e [...] for testing. Comment 10/18/2024 9:52 AM EDT [facility] [employer] ID Tex Harman [id number] 9:52 AM EDT [facility] Device ID [id number] 10/18/2024 9:52 AM EDT [facility] Specimen Type POC Capillary 10/18/2024 9:52 AM EDT [facility] Blood Capillary blood specimen / Unknown 10/18/2024 9:42 AM EDT 10/18/2024 9:52 AM EDT us Hilton Montelongo MD LAB POINT OF CARE TE ST DOCKED DEVICE UNSOLICITED RESULTS Final Result [facility] [address] [place] [address] * Light Green Top (10/18/2024 9:14 AM EDT) [facility] Extra Hold for add-ons 10/18/2024 12:01 PM EDT [facility] Comment:Auto resulted. Blood Venous blood specimen / Unknown 10/18/2024 9:14 AM EDT 10/18/2024 9:27 AM EDT us Hilton Montelongo MD LAB BLOOD ORDERABLES Final Re sult [facility] [address] [place] [address] * Phosphorus, Plasma (10/18/2024 9:14 AM EDT) [facility] Phosphorus, Plasma 3.2 2.5 - 4.5 mg/dL 10/18/2024 10:29 AM EDT [facility] Blood Venous blood specimen / Unknown Venipuncture / Unknown 10/18/2024 9:14 AM EDT 10/18/2024 9:36 AM EDT us Hilton Montelongo MD LAB BLOOD ORDERABLES Final Re sult Performing Organization Address [facility]/ZIP Co de Phone Number [facility] [address] [place] [address] * (ABNORMAL) Magnesium (10/18/2024 9:14 AM EDT) [facility] Magnesium, Plasma 1.8(L) 1.9 - 2.4 mg/dL 10/18/2024 10:29 AM EDT [facility] Blood Venous blood specimen / Unknown Venipuncture / Unknown 10/18/2024 9:14 AM EDT 10/18/2024 9:36 AM EDT us Hilton Montelongo MD LAB BLOOD ORDERABLES Final Re sult [facility] [address] [place] [address] * (ABNORMAL) Basic metabolic panel (10/18/2024 9:14 AM EDT) [facility] Glucose, Plasma 76 74 - 99 mg/dL 10/18/2024 10:29 AM EDT [facility] BUN, Plasma 9 7 - 21 mg/dL 10/18/2024 10:29 AM EDT [facility] Creatinine, Plasma 0.66 0.60 - 1.10 mg/dL 10/18/2024 10:29 AM EDT [facility] BUN/Creatinine Ratio 14 10/18/2024 10:29 AM EDT [facility] Sodium, Plasma 134(L) 136 - 145 mmol/L 10/18/2024 10:29 AM EDT [facility] Potassium, Plasma 3.2(L) 3.6 - 4.9 mmol/L 10/18/2024 10:29 AM EDT [facility] Chloride, Plasma 94(L) 97 - 107 mmol/L 10/18/2024 10:29 AM EDT [facility] CO2, Plasma 27 22 - 29 mmol/L 10/18/2024 10:29 AM EDT [facility] Anion Gap 13 6 - 16 mmol/L 10/18/2024 10:29 AM EDT [facility] Total Calcium, Plasma 8.2(L) 8.9 - 10.2 mg/dL 10/18/2024 10:29 AM EDT [facility] eGFRcr 119.0 mL/min/1.7 3m*2 10/18/2024 10:29 AM EDT [facility] Comment:Reported eGFRcr in m L/min/1.73m2 is based the CKD-EPI 2020 equation that does not use a race coefficient. Blood Venous blood specimen / Unknown Venipuncture / Unknown 10/18/2024 9:14 AM EDT 10/18/2024 9:36 AM EDT us Hilton Montelongo MD LAB BLOOD ORDERABLES Final Re sult [facility] [address] [place] [address] * ECG Adult (10/18/2024 8:54 AM EDT) EKG DIAGNOSIS CLASS Abnormal MUSE ECG Ventricular Rate 95 BPM MUSE ECG Atrial Rate 95 BPM MUSE ECG AL Interval 146 ms MUSE ECG QRSD Interval 80 ms MUSE ECG QT Interval 346 ms MUSE ECG QTC Interval 434 ms MUSE ECG P [place] 53 degrees MUSE ECG R [place] 46 degrees MUSE ECG T Wave [place] 42 degrees MUSE ECG Diagnosis Sinus rhythm with frequent premature ventricular complexes and premature atrial complexes MUSE ECG Diagnosis Nonspecific ST abnormality MUSE ECG Diagnosis Abnormal ECG MUSE ECG Diagnosis MUSE ECG Diagnosis Confirmed by Amish Paz ([id number]) on 10/18/2024 1:47:52 PM MUSE ECG 10/18/2024 8:54 AM EDT 10/18/2024 1:47 PM EDT us Hilton Montelongo MD ECG ORDERABLES Final Result MUSE ECG * OB US Biophysical Profile wo Non Stress Testing (10/18/2024 8:50 AM EDT) Anatomical Region Laterality Modality Body Ultrasound 10/18/2024 8:28 AM EDT Impressions 10/18/2024 9:40 AM EDT The OB Ultrasound you requested has been resulted. Please navigate to the Imaging tab in [employer] for review. This message has been generated by the interface. Narrative Procedure Note Nneka Gipson MD - 10/18/2024 IMPRESSION: The OB Ultrasound you requested has been resulted. Please navigate to theImaging tab in [employer] for review. This message has been generated by theinterface. us Hilton Montelongo MD IMG OB US PROCEDURES Final Re sult * Protein, Random, Urine with Creatinine (10/18/2024 4:03 AM EDT) Protein, Urine 10 mg/dL 10/18/2024 4:44 AM EDT [facility] Creatinine, Urine 62 mg/dL 10/18/2024 4:44 AM EDT [facility] Protein/Creatin ine Ratio 0.2 mg/mg Creat 10/18/2024 4:44 AM EDT [facility] Urine Urine specimen obtained by clean catch procedure / Unknown Non-blood Collection / Unknown 10/18/2024 4:03 AM EDT 10/18/2024 4:11 AM EDT Hilton Montelongo MD LAB URINE ORDERABLES Final Re sult Performing Organization Address City/[facility]/ZIP Co de Phone Number [facility] [address] [place] [address] * (ABNORMAL) Ionized calcium, whole blood (10/18/2024 3:38 AM EDT) Ionized Calcium, Whole Blood 4.3(L) 4.6 - 5.1 mg/dL LAB HEMATOLOGY METHOD 10/18/2024 5:42 AM EDT [facility] Blood Venous blood specimen / Unknown Venipuncture / Unknown 10/18/2024 3:38 AM EDT 10/18/2024 3:48 AM EDT Hilton Montelongo MD LAB BLOOD ORDERABLES Final Re sult Performing Organization Address [facility]/ZIP Co de Phone Number [facility] [address] [place] [address] * (ABNORMAL) Blood gas panel, venous (10/18/2024 3:38 AM EDT) pH, Venous 7.47(H) 7.32 - 7.43 LAB HEMATOLOGY METHOD 10/18/2024 3:50 AM EDT [facility] pCO2, Venous 44 37 - 52 mmHg LAB HEMATOLOGY METHOD 10/18/2024 3:50 AM EDT [facility] pO2, Venous 115(H) 25 - 40 mmHg LAB HEMATOLOGY METHOD 10/18/2024 3:50 AM EDT [facility] SO2, Measured, Venous 100(H) 65 - 80 % LAB HEMATOLOGY METHOD 10/18/2024 3:50 AM EDT [facility] Base Excess, Venous 7.1(H) -2.0 - 3.0 mmol/L LAB HEMATOLOGY METHOD 10/18/2024 3:50 AM EDT [facility] Bicarbonate, Calculated, Venous 32(H) 22 - 26 mmol/L LAB HEMATOLOGY METHOD 10/18/2024 3:50 AM EDT [facility] Hematocrit, Whole Blood 27.5(L) 34.0 - 45.0 % LAB HEMATOLOGY METHOD 10/18/2024 3:50 AM EDT [facility] Sodium, Whole Blood 133(L) 136 - 145 mmol/L LAB HEMATOLOGY METHOD 10/18/2024 3:50 AM EDT [facility] Potassium, Whole Blood 2.8(L) 3.6 - 4.9 mmol/L LAB HEMATOLOGY METHOD 10/18/2024 3:50 AM EDT [facility] Chloride, Whole Blood 91(L) 97 - 107 mmol/L LAB HEMATOLOGY METHOD 10/18/2024 3:50 AM EDT [facility] Glucose, Whole Blood 72(L) 74 - 99 mg/dL LAB HEMATOLOGY METHOD 10/18/2024 3:50 AM EDT [facility] Lactate, Venous, Whole Blood 0.7 0.5 - 2.2 mmol/L LAB HEMATOLOGY METHOD 10/18/2024 3:50 AM EDT [facility] Ionized Calcium, Whole Blood 4.3(L) 4.6 - 5.1 mg/dL LAB HEMATOLOGY METHOD 10/18/2024 3:50 AM EDT [facility] Blood Venous blood specimen / Unknown Venipuncture / Unknown 10/18/2024 3:38 AM EDT 10/18/2024 3:48 AM EDT us Hilton Montelongo MD LAB BLOOD ORDERABLES Final Re sult [facility] [address] [place] [address] * Phosphorus, Plasma (10/18/2024 3:38 AM EDT) Phosphorus, Plasma 3.4 2.5 - 4.5 mg/dL 10/18/2024 4:17 AM EDT [facility] Blood Venous blood specimen / Unknown Venipuncture / Unknown 10/18/2024 3:38 AM EDT 10/18/2024 3:49 AM EDT us Hilton Montelongo MD LAB BLOOD ORDERABLES Final Re sult Performing Organization Address City/[facility]/ZIP Co de Phone Number [facility] [address] [place] [address] * Magnesium (10/18/2024 3:38 AM EDT) Magnesium, Plasma 2.1 1.9 - 2.4 mg/dL 10/18/2024 4:17 AM EDT [facility] Blood Venous blood specimen / Unknown Venipuncture / Unknown 10/18/2024 3:38 AM EDT 10/18/2024 3:49 AM EDT Hilton Montelongo MD LAB BLOOD ORDERABLES Final Re sult Performing Organization Address [facility]/ZIP Co de Phone Number [facility] [address] [place] [address] * (ABNORMAL) Basic metabolic panel (10/18/2024 3:38 AM EDT) Glucose, Plasma 73(L) 74 - 99 mg/dL 10/18/2024 4:17 AM EDT [facility] BUN, Plasma 8 7 - 21 mg/dL 10/18/2024 4:17 AM EDT [facility] Creatinine, Plasma 0.66 0.60 - 1.10 mg/dL 10/18/2024 4:17 AM EDT [facility] BUN/Creatinine Ratio 12 10/18/2024 4:17 AM EDT [facility] Sodium, Plasma 133(L) 136 - 145 mmol/L 10/18/2024 4:17 AM EDT [facility] Potassium, Plasma 3.1(L) 3.6 - 4.9 mmol/L 10/18/2024 4:17 AM EDT [facility] Chloride, Plasma 92(L) 97 - 107 mmol/L 10/18/2024 4:17 AM EDT [facility] CO2, Plasma 27 22 - 29 mmol/L 10/18/2024 4:17 AM EDT [facility] Anion Gap 14 6 - 16 mmol/L 10/18/2024 4:17 AM EDT [facility] Total Calcium, Plasma 8.0(L) 8.9 - 10.2 mg/dL 10/18/2024 4:17 AM EDT [facility] eGFRcr 119.0 mL/min/1.7 3m*2 10/18/2024 4:17 AM EDT [facility] Comment:Reported eGFRcr in m L/min/1.73m2 is based the CKD-EPI 2020 equation that does not use a race coefficient. Blood Venous blood specimen / Unknown Venipuncture / Unknown 10/18/2024 3:38 AM EDT 10/18/2024 3:49 AM EDT Hilton Montelongo MD LAB BLOOD ORDERABLES Final Re sult Performing Organization Address City/[facility] Co de Phone Number [facility] [address] [place] [address] * Bile acids, total (10/18/2024 1:12 AM EDT) BILE ACIDS, TOTAL 5 0 - 10 umol/L 10/20/2024 12:29 AM EDT [employer] [facility] ([facility]) Blood Venous blood specimen / Unknown Venipuncture / Unknown 10/18/2024 1:12 AM EDT 10/18/2024 1:18 AM EDT Narrative [facility] [employer] ([facility]) - 10/20/2024 12:29 AM EDT INTERPRETIVE INFORMATION: Bile Acids, Total Reference Interval applies to fasting specimens. Performed By: [employer] [address] [place] [address] Certified Hyperbaric Technician: Brandon Bell MD, PhD CLIA Number: [id number] us Hilton Montelongo MD LAB BLOOD ORDERABLES Final Re sult Performing Organization Address City/[facility] Co de Phone Number [facility] [employer]) [address] [place] [id number] * Troponin T, High Sensitivity, 2 Hour, Plasma (10/18/2024 1:12 AM EDT) Troponin T, High Sensitivity, 2 Hour <6 <14 ng/L 10/18/2024 1:46 AM EDT [facility] Blood Venous blood specimen / Unknown Venipuncture / Unknown 10/18/2024 1:12 AM EDT 10/18/2024 1:18 AM EDT us Hilton Montelongo MD LAB BLOOD ORDERABLES Final Re sult Performing Organization Address City/[facility]/ZIP Co de Phone Number [facility] [address] [place] [address] * Group A Streptococcus by PCR (10/17/2024 11:25 PM EDT) Group A Streptococcus PCR Result Not Detected Not Detected 10/18/2024 12:38 AM EDT [facility] Swab Structure of peritonsillar tissue / Unknown Non-blood Collection / Unknown 10/17/2024 11:25 PM EDT 10/17/2024 11:49 PM EDT us Hilton Montelongo MD LAB MICROBIOLOGY - GENERAL OR DERABLES Final Result Performing Organization Address City/[facility] [place] [address] * ECG Adult (10/17/2024 10:50 PM EDT) EKG DIAGNOSIS CLASS Borderline Normal MUSE ECG Ventricular Rate 92 BPM MUSE ECG Atrial Rate 92 BPM MUSE ECG AL Interval 142 ms MUSE ECG QRSD Interval 78 ms MUSE ECG QT Interval 366 ms MUSE ECG QTC Interval 452 ms MUSE ECG P [place] 62 degrees MUSE ECG R [place] 45 degrees MUSE ECG T Wave [place] 61 degrees MUSE ECG Diagnosis Sinus rhythm with premature atrial complexes with aberrant conduction MUSE ECG Diagnosis Otherwise normal ECG MUSE ECG Diagnosis MUSE ECG Diagnosis Confirmed by Amish Paz ([id number]) on 10/18/2024 8:04:52 PM MUSE ECG 10/17/2024 10:5 0 PM EDT 10/18/2024 8:04 PM EDT us Hilton Montelongo MD ECG ORDERABLES Final Result MUSE ECG * Magnesium (10/17/2024 10:41 PM EDT) Magnesium, Plasma 2.2 1.9 - 2.4 mg/dL 10/17/2024 11:16 PM EDT [facility] Blood Venous blood specimen / Unknown Venipuncture / Unknown 10/17/2024 10:41 PM EDT 10/17/2024 10:45 PM EDT Hilton Montelongo MD LAB BLOOD ORDERABLES Final Re sult Performing Organization Address City/[facility]/ZIP Co de Phone Number [facility] [address] [place] [address] * Troponin T, High Sensitivity, 0 Hour Plasma, Reflex to 2 Hour (10/17/2024 10:41 PM EDT) Pathologist [facility] Troponin T, High Sensitivity, 0 Hour <6 <14 ng/L 10/17/2024 11:16 PM EDT [facility] Blood Venous blood specimen / Unknown Venipuncture / Unknown 10/17/2024 10:41 PM EDT 10/17/2024 10:45 PM EDT Hilton Montelongo MD LAB BLOOD ORDERABLES Final Re sult Performing Organization Address [facility]/ZIP Co de Phone Number [facility] [address] [place] [address] * (ABNORMAL) Blood gas panel, venous (10/17/2024 10:41 PM EDT) pH, Venous 7.62(HH) 7.32 - 7.43 LAB HEMATOLOGY METHOD 10/17/2024 10:47 PM EDT [facility] pCO2, Venous 31(L) 37 - 52 mmHg LAB HEMATOLOGY METHOD 10/17/2024 10:47 PM EDT [facility] pO2, Venous 185(H) 25 - 40 mmHg LAB HEMATOLOGY METHOD 10/17/2024 10:47 PM EDT [facility] SO2, Measured, Venous 100(H) 65 - 80 % LAB HEMATOLOGY METHOD 10/17/2024 10:47 PM EDT [facility] Base Excess, Venous 10.6(H) -2.0 - 3.0 mmol/L LAB HEMATOLOGY METHOD 10/17/2024 10:47 PM EDT [facility] Bicarbonate, Calculated, Venous 32(H) 22 - 26 mmol/L LAB HEMATOLOGY METHOD 10/17/2024 10:47 PM EDT [facility] Hematocrit, Whole Blood 29.4(L) 34.0 - 45.0 % LAB HEMATOLOGY METHOD 10/17/2024 10:47 PM EDT [facility] Sodium, Whole Blood 132(L) 136 - 145 mmol/L LAB HEMATOLOGY METHOD 10/17/2024 10:47 PM EDT [facility] Potassium, Whole Blood 2.3(LL) 3.6 - 4.9 mmol/L LAB HEMATOLOGY METHOD 10/17/2024 10:47 PM EDT [facility] Chloride, Whole Blood 87(L) 97 - 107 mmol/L LAB HEMATOLOGY METHOD 10/17/2024 10:47 PM EDT [facility] Glucose, Whole Blood 76 74 - 99 mg/dL LAB HEMATOLOGY METHOD 10/17/2024 10:47 PM EDT [facility] Lactate, Venous, Whole Blood 1.1 0.5 - 2.2 mmol/L LAB HEMATOLOGY METHOD 10/17/2024 10:47 PM EDT [facility] Ionized Calcium, Whole Blood 4.2(L) 4.6 - 5.1 mg/dL LAB HEMATOLOGY METHOD 10/17/2024 10:47 PM EDT [facility] Blood Venous blood specimen / Unknown Venipuncture / Unknown 10/17/2024 10:41 PM EDT 10/17/2024 10:45 PM EDT us Hilton Montelongo MD LAB BLOOD ORDERABLES Final Re sult [facility] [address] [place] [address] * (ABNORMAL) Comprehensive metabolic panel (10/17/2024 10:41 PM EDT) Glucose, Plasma 77 74 - 99 mg/dL 10/17/2024 11:16 PM EDT [facility] BUN, Plasma 9 7 - 21 mg/dL 10/17/2024 11:16 PM EDT [facility] Creatinine, Plasma 0.70 0.60 - 1.10 mg/dL 10/17/2024 11:16 PM EDT [facility] BUN/Creatinine Ratio 13 10/17/2024 11:16 PM EDT [facility] Sodium, Plasma 132(L) 136 - 145 mmol/L 10/17/2024 11:16 PM EDT [facility] Potassium, Plasma 2.5(LL) 3.6 - 4.9 mmol/L 10/17/2024 11:16 PM EDT [facility] Chloride, Plasma 88(L) 97 - 107 mmol/L 10/17/2024 11:16 PM EDT [facility] CO2, Plasma 27 22 - 29 mmol/L 10/17/2024 11:16 PM EDT [facility] Anion Gap 17(H) 6 - 16 mmol/L 10/17/2024 11:16 PM EDT [facility] Total Calcium, Plasma 8.4(L) 8.9 - 10.2 mg/dL 10/17/2024 11:16 PM EDT [facility] Total Protein 5.8(L) 6.3 - 7.9 g/dL 10/17/2024 11:16 PM EDT [facility] Albumin, Plasma 3.0(L) 3.5 - 5.2 g/dL 10/17/2024 11:16 PM EDT [facility] AST, Plasma 69(H) 10 - 35 U/L 10/17/2024 11:16 PM EDT [facility] ALT, Plasma 76(H) 10 - 35 U/L 10/17/2024 11:16 PM EDT [facility] Alkaline Phosphatase, Plasma 76 35 - 104 U/L 10/17/2024 11:16 PM EDT [facility] Total Bilirubin, Plasma 0.7 0.2 - 1.1 mg/dL 10/17/2024 11:16 PM EDT [facility] eGFRcr 117.3 mL/min/1.7 3m*2 10/17/2024 11:16 PM EDT [facility] Comment:Reported eGFRcr in m L/min/1.73m2 is based the CKD-EPI 2020 equation that does not use a race coefficient. Blood Venous blood specimen / Unknown Venipuncture / Unknown 10/17/2024 10:41 PM EDT 10/17/2024 10:45 PM EDT us Hilton Montelongo MD LAB BLOOD ORDERABLES Final Re sult [facility] [address] [place] [address] * (ABNORMAL) CBC (10/17/2024 10:41 PM EDT) WBC Count 10.63(H) 3.70 - 10.30 10*3/uL LAB HEMATOLOGY METHOD 10/17/2024 10:53 PM EDT [facility] RBC Count 3.27(L) 3.90 - 5.20 10*6/uL LAB HEMATOLOGY METHOD 10/17/2024 10:53 PM EDT [facility] HGB 9.7(L) 11.2 - 15.7 g/dL LAB HEMATOLOGY METHOD 10/17/2024 10:53 PM EDT [facility] HCT 28.7(L) 34.0 - 45.0 % LAB HEMATOLOGY METHOD 10/17/2024 10:53 PM EDT [facility] Platelet Count 185 155 - 369 10*3/uL LAB HEMATOLOGY METHOD 10/17/2024 10:53 PM EDT [facility] MCV 88 79 - 98 fL LAB HEMATOLOGY METHOD 10/17/2024 10:53 PM EDT [facility] MCH 29.7 26.0 - 32.0 pg LAB HEMATOLOGY METHOD 10/17/2024 10:53 PM EDT [facility] MCHC 33.8 30.7 - 35.5 g/dL LAB HEMATOLOGY METHOD 10/17/2024 10:53 PM EDT [facility] RDW 15.8(H) 11.5 - 14.5 % LAB HEMATOLOGY METHOD 10/17/2024 10:53 PM EDT [facility] MPV 12.3 8.8 - 12.5 fL LAB HEMATOLOGY METHOD 10/17/2024 10:53 PM EDT [facility] nRBC 0.0 <=0.0 per 100 WBCs LAB HEMATOLOGY METHOD 10/17/2024 10:53 PM EDT [facility] Blood Venous blood specimen / Unknown Venipuncture / Unknown 10/17/2024 10:41 PM EDT 10/17/2024 10:45 PM EDT Hilton Montelongo MD LAB BLOOD ORDERABLES Final Re sult Performing Organization Address [facility]/ZIP Co de Phone Number [facility] [address] [place] [address] * SARS CoV-2/COVID-19 by PCR (10/17/2024 8:50 PM EDT) Pathologist [facility] SARS CoV-2/COVID-1 9 RNA PCR Result Not Detected Not Detected 10/19/2024 1:56 AM EDT [facility] Swab Nasopharyngeal structure / Unknown Non-blood Collection / Unknown 10/17/2024 8:50 PM EDT 10/17/2024 9:28 PM EDT Narrative [facility] - 10/19/2024 1:56 AM EDT This test is FDA approved for use with nasopharyngeal specimens in [employer] (VTM). This test is used for clinical purposes. It should not be regarded as investigational or for research. This laboratory is certified under the Clinical Laboratory improvement Amendments of 1988 (CLIA-88 as qualified to perform high complexity clinical laboratory testing. This test was performed on the Xpert Xpress SARS CoV-2 Plus assay test, a PCR- based method. Negative results should be considered presumptive and do not preclude current or future infection obtained through community transmission or other exposures. Negative results must be considered in the context of an individual's recent exposures, history, presence of clinical signs and symptoms consistent with COVID-19. us Hilton Montelongo MD LAB MICROBIOLOGY - GENERAL OR DERABLES Final Result Performing Organization Address [facility]/ZIP Co de Phone Number [facility] [address] [place] [address] * Nasopharyngeal Respiratory Panel (10/17/2024 8:50 PM EDT) Pathologist [facility] Nasopharyngeal Respiratory PCR Interpretation Not Detected for all analytes Not Detected for all analytes 10/17/2024 11:23 PM EDT [facility] Swab Nasopharyngeal structure / Unknown Non-blood Collection / Unknown 10/17/2024 8:50 PM EDT 10/17/2024 9:28 PM EDT Narrative [facility] - 10/17/2024 11:23 PM EDT [...] Respiratory PCR Panel is performed using the [employer] e[employer]lex instrument. This test is FDA approved for use with Nasopharyngeal swabs only. This test is used for clinical purposes. It should not be regarded as investigational or for research. The [facility] Clinical Microbiology Laboratory is certified under the Clinical Laboratory Improvement Amendments of 1988 (CLIA-88) as qualified to perform high complexity clinical laboratory testing. Hilton Montelongo MD LAB MICROBIOLOGY - GENERAL OR DERABLES Final Result [facility] [address] [place] [address] * Treponema Pallidum (Syphilis) Antibodies with Reflex to RPR and RPR Titer (Those with NO known Syphilis) (10/17/2024 7:31 PM EDT) [facility] Syphilis Antibody (IgG+IgM) Nonreactive Nonreactive 10/17/2024 10:00 PM EDT [facility] Comment:Nonreactive. No sero logic evidence of syphilis. No follow-up necessary unless clinically indicated (e.g., early syphilis). Blood Venous blood specimen / Unknown Venipuncture / Unknown 10/17/2024 7:31 PM EDT 10/17/2024 7:44 PM EDT Hilton Montelongo MD LAB BLOOD ORDERABLES Final Re sult Performing Organization Address [facility]/ZIP Co de Phone Number [facility] [address] [place] [address] * Type and Screen (10/17/2024 7:31 PM EDT) ABO/Rh O Positive 10/17/2024 7:10 PM EDT [facility] Antibody Screen Negative 10/17/2024 7:10 PM EDT [facility] Specimen Expiration 10/20/2024 23:59 10/17/2024 7:10 PM EDT [facility] Blood Venous blood specimen / Unknown Venipuncture / Unknown 10/17/2024 7:31 PM EDT 10/17/2024 7:44 PM EDT Hilton Montelongo MD LAB BLOOD BANK TEST ORDERABLE S Final Result Performing Organization Address [facility] Co de Phone Number BLOOD BANK [address] [place] [address], * Troponin T, High Sensitivity, 2 Hour, Plasma (10/17/2024 6:18 PM EDT) Troponin T, High Sensitivity, 2 Hour <6 <14 ng/L 10/17/2024 7:18 PM EDT [facility] Blood Venous blood specimen / Unknown Venipuncture / Unknown 10/17/2024 6:18 PM EDT 10/17/2024 6:46 PM EDT Job Devine HOSPITAL RECRUITER, CNM LAB BLOOD ORDERABLES Final Result Performing Organization Address City/[facility]/ZIP Co de Phone Number [facility] [address] [place] [address] * XR Chest 1 View (10/17/2024 4:38 [...] Brandin Morales MD on 10/17/2024 4:40 PM us Job N Devine HOSPITAL RECRUITER, CNM IMG XR PROCEDURES Fi nal Result * ECG Adult (10/17/2024 4:17 PM EDT) EKG DIAGNOSIS CLASS Borderline Normal MUSE ECG Ventricular Rate 116 BPM MUSE ECG Atrial Rate 116 BPM MUSE ECG AL Interval 140 ms MUSE ECG QRSD Interval 80 ms MUSE ECG QT Interval 324 ms MUSE ECG QTC Interval 450 ms MUSE ECG P [place] 63 degrees MUSE ECG R [place] 39 degrees MUSE ECG T Wave [place] 50 degrees MUSE ECG Diagnosis Sinus tachycardia with premature atrial complexes with aberrant conduction MUSE ECG Diagnosis Otherwise normal ECG MUSE ECG Diagnosis MUSE ECG Diagnosis Confirmed by Amish Paz ([id number]) on 10/18/2024 6:06:39 PM MUSE ECG 10/17/2024 4:17 PM EDT 10/18/2024 6:06 PM EDT Job Devine HOSPITAL RECRUITER, CNM ECG ORDERABLES Lena l Result MUSE ECG * (ABNORMAL) Uric acid (10/17/2024 4:05 PM EDT) Uric Acid, Plasma 10.1(H) 3.1 - 7.1 mg/dL 10/17/2024 9:51 PM EDT [facility] Blood Venous blood specimen / Unknown Venipuncture / Unknown 10/17/2024 4:05 PM EDT 10/17/2024 4:20 PM EDT Hilton Montelongo MD LAB BLOOD ORDERABLES Final Re sult Performing Organization Address [facility]/ZIP Co de Phone Number [facility] [address] [place] [address] * (ABNORMAL) Lactate dehydrogenase (10/17/2024 4:05 PM EDT) LDH, Plasma 267(H) 116 - 250 U/L 10/17/2024 9:51 PM EDT [facility] Comment:Hemolyzed, result ma y be falsely increased. Blood Venous blood specimen / Unknown Venipuncture / Unknown 10/17/2024 4:05 PM EDT 10/17/2024 4:20 PM EDT Hilton Montelongo MD LAB BLOOD ORDERABLES Final Re sult [facility] [address] [place] [address] * Phosphorus (10/17/2024 4:05 PM EDT) Phosphorus, Plasma 2.5 2.5 - 4.5 mg/dL 10/17/2024 5:07 PM EDT [facility] Blood Venous blood specimen / Unknown Venipuncture / Unknown 10/17/2024 4:05 PM EDT 10/17/2024 4:20 PM EDT Hilton Montelongo MD LAB BLOOD ORDERABLES Final Re sult Performing Organization Address City/[facility]/ZIP Co de Phone Number [facility] [address] [place] [address] * (ABNORMAL) Magnesium (10/17/2024 4:05 PM EDT) Magnesium, Plasma 1.4(L) 1.9 - 2.4 mg/dL 10/17/2024 5:07 PM EDT [facility] Blood Venous blood specimen / Unknown Venipuncture / Unknown 10/17/2024 4:05 PM EDT 10/17/2024 4:20 PM EDT Hilton Montelongo MD LAB BLOOD ORDERABLES Final Re sult Performing Organization Address [facility]/ZIP Co de Phone Number [facility] [address] [place] [address] * N-Terminal Probnp (10/17/2024 4:05 PM EDT) N-Terminal, PROBNP, Plasma 125 0 - 449 pg/mL 10/17/2024 5:07 PM EDT [facility] Blood Venous blood specimen / Unknown Venipuncture / Unknown 10/17/2024 4:05 PM EDT 10/17/2024 4:20 PM EDT Job Devine HOSPITAL RECRUITER, CNM LAB BLOOD ORDERABLES Final Result [facility] [address] [place] [address] * Troponin T, High Sensitivity, 0 Hour Plasma, Reflex to 2 Hour (10/17/2024 4:05 PM EDT) Troponin T, High Sensitivity, 0 Hour <6 <14 ng/L 10/17/2024 5:07 PM EDT [facility] Blood Venous blood specimen / Unknown Venipuncture / Unknown 10/17/2024 4:05 PM EDT 10/17/2024 4:20 PM EDT Job Brandon Devine HOSPITAL RECRUITER, CNM LAB BLOOD ORDERABLES Final Result Performing Organization Address [facility] Co de Phone Number [facility] [address] [place] [address] * (ABNORMAL) D DIMER, QUANTITATIVE (10/17/2024 4:05 PM EDT) D Dimer, Quantitative 2.33(H) <0.50 ug/mL FEU LAB COAGULATION METHOD 10/17/2024 4:47 PM EDT [facility] Blood Venous blood specimen / Unknown Venipuncture / Unknown 10/17/2024 4:05 PM EDT 10/17/2024 4:19 PM EDT Narrative [facility] - 10/17/2024 4:47 PM EDT [...] Final Result Performing Organization Address [facility] de Phone Number [facility] [address] [place] [address] * (ABNORMAL) Comprehensive metabolic panel (10/17/2024 4:05 PM EDT) Glucose, Plasma 78 74 - 99 mg/dL 10/17/2024 5:07 PM EDT [facility] BUN, Plasma 9 7 - 21 mg/dL 10/17/2024 5:07 PM EDT [facility] Creatinine, Plasma 0.74 0.60 - 1.10 mg/dL 10/17/2024 5:07 PM EDT [facility] BUN/Creatinine Ratio 12 10/17/2024 5:07 PM EDT [facility] Sodium, Plasma 136 136 - 145 mmol/L 10/17/2024 5:07 PM EDT [facility] Potassium, Plasma 2.5(LL) 3.6 - 4.9 mmol/L 10/17/2024 5:07 PM EDT [facility] Chloride, Plasma 87(L) 97 - 107 mmol/L 10/17/2024 5:07 PM EDT [facility] CO2, Plasma 32(H) 22 - 29 mmol/L 10/17/2024 5:07 PM EDT [facility] Anion Gap 17(H) 6 - 16 mmol/L 10/17/2024 5:07 PM EDT [facility] Total Calcium, Plasma 9.0 8.9 - 10.2 mg/dL 10/17/2024 5:07 PM EDT [facility] Total Protein 6.5 6.3 - 7.9 g/dL 10/17/2024 5:07 PM EDT [facility] Albumin, Plasma 3.1(L) 3.5 - 5.2 g/dL 10/17/2024 5:07 PM EDT [facility] AST, Plasma 82(H) 10 - 35 U/L 10/17/2024 5:07 PM EDT [facility] ALT, Plasma 93(H) 10 - 35 U/L 10/17/2024 5:07 PM EDT [facility] Alkaline Phosphatase, Plasma 83 35 - 104 U/L 10/17/2024 5:07 PM EDT [facility] Total Bilirubin, Plasma 0.6 0.2 - 1.1 mg/dL 10/17/2024 5:07 PM EDT [facility] eGFRcr 109.7 mL/min/1.7 3m*2 10/17/2024 5:07 PM EDT [facility] Comment:Reported eGFRcr in m L/min/1.73m2 is based the CKD-EPI 2020 equation that does not use a race coefficient. Blood Venous blood specimen / Unknown Venipuncture / Unknown 10/17/2024 4:05 PM EDT 10/17/2024 4:20 PM EDT Job Devine HOSPITAL RECRUITER, CNM LAB BLOOD ORDERABLES Final Result [facility] [address] [place] [address] * (ABNORMAL) CBC and Differential (10/17/2024 4:05 PM EDT) WBC Count 9.54 3.70 - 10.30 10*3/uL LAB HEMATOLOGY METHOD 10/17/2024 4:41 PM EDT [facility] RBC Count 3.40(L) 3.90 - 5.20 10*6/uL LAB HEMATOLOGY METHOD 10/17/2024 4:41 PM EDT [facility] HGB 10.2(L) 11.2 - 15.7 g/dL LAB HEMATOLOGY METHOD 10/17/2024 4:41 PM EDT [facility] HCT 29.7(L) 34.0 - 45.0 % LAB HEMATOLOGY METHOD 10/17/2024 4:41 PM EDT [facility] Platelet Count 177 155 - 369 10*3/uL LAB HEMATOLOGY METHOD 10/17/2024 4:41 PM EDT [facility] MCV 87 79 - 98 fL LAB HEMATOLOGY METHOD 10/17/2024 4:41 PM EDT [facility] MCH 30.0 26.0 - 32.0 pg LAB HEMATOLOGY METHOD 10/17/2024 4:41 PM EDT [facility] MCHC 34.3 30.7 - 35.5 g/dL LAB HEMATOLOGY METHOD 10/17/2024 4:41 PM EDT [facility] RDW 15.9(H) 11.5 - 14.5 % LAB HEMATOLOGY METHOD 10/17/2024 4:41 PM EDT [facility] MPV 12.1 8.8 - 12.5 fL LAB HEMATOLOGY METHOD 10/17/2024 4:41 PM EDT [facility] nRBC 0.0 <=0.0 per 100 WBCs LAB HEMATOLOGY METHOD 10/17/2024 4:41 PM EDT [facility] Differential Type Automated LAB HEMATOLOGY METHOD 10/17/2024 4:41 PM EDT [facility] Neutrophils % 63 % LAB HEMATOLOGY METHOD 10/17/2024 4:41 PM EDT [facility] Lymphocytes % 24 % LAB HEMATOLOGY METHOD 10/17/2024 4:41 PM EDT [facility] Monocytes % 11 % LAB HEMATOLOGY METHOD 10/17/2024 4:41 PM EDT [facility] Eosinophils % 1 % LAB HEMATOLOGY METHOD 10/17/2024 4:41 PM EDT [facility] Basophils % 0 % LAB HEMATOLOGY METHOD 10/17/2024 4:41 PM EDT [facility] Immature Granulocytes % 1 % LAB HEMATOLOGY METHOD 10/17/2024 4:41 PM EDT [facility] Neutrophils Absolute 6.06 1.60 - 6.10 10*3/uL LAB HEMATOLOGY METHOD 10/17/2024 4:41 PM EDT [facility] Lymphocytes Absolute 2.31 1.20 - 3.90 10*3/uL LAB HEMATOLOGY METHOD 10/17/2024 4:41 PM EDT [facility] Monocytes Absolute 1.05(H) 0.30 - 0.90 10*3/uL LAB HEMATOLOGY METHOD 10/17/2024 4:41 PM EDT [facility] Eosinophils Absolute 0.06 0.00 - 0.50 10*3/uL LAB HEMATOLOGY METHOD 10/17/2024 4:41 PM EDT [facility] Basophils Absolute 0.01 0.00 - 0.10 10*3/uL LAB HEMATOLOGY METHOD 10/17/2024 4:41 PM EDT [facility] Immature Granulocytes Absolute 0.05 0.00 - 0.06 10*3/uL LAB HEMATOLOGY METHOD 10/17/2024 4:41 PM EDT [facility] Blood Venous blood specimen / Unknown Venipuncture / Unknown 10/17/2024 4:05 PM EDT 10/17/2024 4:24 PM EDT Narrative [facility] - 10/17/2024 4:41 PM EDT Therapeutic decision making should be based on absolute values, rather than percentages. Job Devine HOSPITAL RECRUITER, CNM LAB BLOOD ORDERABLES Final Result [facility] [address] [place] [address] documented in this encounter Visit Diagnoses Diagnosis Hypokalemia- Primary Hypopotassemia Electrolyte abnormality Electrolyte and fluid disorders not elsewhere classified documented in this encounter Admitting Diagnoses Diagnosis Hypokalemia Hypopotassemia Electrolyte abnormality Electrolyte and fluid disorders not elsewhere classified documented in this encounter Administered Medications Inactive Administered Medications - up to 3 most recent administrations Medication Order MAR Action Action Date Dose Rate Site acetaminophen (Tylenol) tablet 650 mg 650 mg, Oral, Every 4 hours PRN, Starting on Carrie 10/17/24 at 1911, Until Delmita 10/20/24 at 1216, Routine, Pre-Delivery, mild pain Given 10/17/2024 8:59 PM EDT 650 mg azithromycin (Zithromax) 500 mg in sodium chloride 0.9% 250 mL IVPB (vial adapter required) 500 mg, Intravenous, Once in OR, 1 dose, Starting on Carrie 10/17/24 at 2040, Until [place]mita 10/20/24 at 1216, Routine, Pre-Delivery baclofen (Fleqsuvy) 25 MG/5ML oral suspension 10 mg 10 mg, Oral, 3 times daily, First dose on [facility] 10/19/24 at 2100, Until Discontinued, Routine Given 10/19/2024 11:38 PM EDT 10 mg calcium carbonate (Tums) chewable tablet 1,000 mg 1,000 mg, Oral, 4 times daily PRN, Starting on Carrie 10/17/24 at 1911, Until [place] 10/20/24 at 1216, Routine, Pre-Delivery, indigestion, heartburn ceFAZolin (Ancef) injection 2 g 2 g, Intravenous, Once in OR, 1 dose, Starting on Carrie 10/17/24 at 2040, Until [place] 10/20/24 at 1216, Routine, Pre-Delivery cyclobenzaprine (Flexeril) tablet 5 mg 5 mg, Oral, 3 times daily PRN, Starting on Carrie 10/17/24 at 2338, Until [place]mita 10/20/24 at 0744, Routine, muscle spasms Given 10/19/2024 12:19 PM EDT 5 mg Given 10/19/2024 1:21 AM EDT 5 mg Given 10/18/2024 6:39 PM EDT 5 mg dextrose 5 % and lactated Ringer's infusion 75 mL/hr, Intravenous, Continuous, Starting on Mon10/18/24 at 1030, Until Mon10/20/24 at 1216, Routine New Bag 10/18/2024 10:25 AM EDT 75 mL/hr 75 mL /hr famotidine (Pepcid) tablet 20 mg 20 mg, Oral, 2 times daily PRN, Starting on Mon10/17/24 at 1911, Until Mon10/20/24 at 1216, Routine, Pre-Delivery, indigestion, heartburn, or inj IV famotidine PF (Pepcid) injection 20 mg 20 mg, Intravenous, 2 times daily PRN, Starting on Mon10/17/24 at 1911, Until Mon10/20/24 at 1216, Routine, Pre-Delivery, indigestion, heartburn, or tablet po Given 10/18/2024 10:02 AM EDT 20 mg Given 10/17/2024 11:34 PM EDT 20 mg ferrous sulfate EC tablet 324 mg 324 mg, Oral, Daily with breakfast, First dose on Mon10/18/24 at 1245, Until Discontinued, Routine Given 10/19/2024 8:02 AM EDT 324 mg Given 10/18/2024 12:38 PM EDT 324 mg HYDROmorphone (Dilaudid) injection 0.25 mg 0.25 mg, Intravenous, Once, 1 dose, On Mon10/18/24 at 1030, Routine Given 10/18/2024 10:02 AM EDT 0.25 mg hydrOXYzine (Vistaril) injection 25 mg 25 mg, Intramuscular, Once, 1 dose, On Mon10/20/24 at 0045, Routine Given 10/20/2024 3:36 AM EDT 25 mg Right Deltoid hydrOXYzine pamoate (Vistaril) capsule 25 mg 25 mg, Oral, Every 6 hours PRN, Starting on Mon10/17/24 at 2328, Until Mon10/20/24 at 1216, Routine, anxiety Given 10/19/2024 11:38 PM EDT 25 mg Given 10/19/2024 1:22 AM EDT 25 mg Given 10/18/2024 6:38 PM EDT 25 mg lactated Ringer's infusion 75 mL/hr, Intravenous, Continuous, Starting on Mon10/17/24 at 2230, Until Mon10/18/24 at 0933, Routine New Bag 10/17/2024 9:57 PM EDT 75 mL/ hr 75 mL/hr magic mouthwash BLM (FIRST-Mouthwash) suspension 15 mL 15 mL, Swish & Spit, 4 times daily PRN, Starting on 10/20/24 at 0402, Until 10/20/24 at 1216, Routine, mucositis magnesium oxide (Mag-Ox) tablet 400 mg 400 mg, Oral, 2 times daily, First dose on Carrie 10/17/24 at 2100, Until Discontinued, Routine Given 10/18/2024 9:15 AM EDT 400 mg Given 10/17/2024 8:59 PM EDT 400 mg magnesium oxide (Mag-Ox) tablet 800 mg 800 mg, Oral, 2 times daily, First dose (after last modification) on Mon10/18/24 at 2100, Until Discontinued, Routine Given 10/19/2024 8:02 AM EDT 800 mg Given 10/18/2024 8:45 PM EDT 800 mg magnesium sulfate IVPB 2 g 2 g, Intravenous, Once, 1 dose, On 10/19/24 at 1715, Routine New Bag 10/19/2024 5:25 PM EDT 2 g 25 mL/hr magnesium sulfate IVPB 2 g 2 g, Intravenous, Once, 1 dose, On 10/20/24 at 0315, Routine 10/20/2024 3:25 AM EDT 2 g 25 mL/hr magnesium sulfate IVPB 4 g 4 g, Intravenous, Once, 1 dose, On Carrie 10/17/24 at 2000, Routine 10/17/2024 8:26 PM EDT 4 g 25 mL/hr magnesium sulfate IVPB 4 g 4 g, Intravenous, Once, 1 dose, On Mon10/18/24 at 1145, Routine New 10/18/2024 12:38 PM EDT 4 g 25 mL/hr magnesium sulfate IVPB 4 g 4 g, Intravenous, Once, 1 dose, On Mon10/18/24 at 1915, Routine New 10/18/2024 6:56 PM EDT 4 g 25 mL/hr melatonin tablet 3 mg 3 mg, Oral, Nightly PRN, Starting on Carrie 10/17/24 at 2349, Until Mon10/20/24 at 1216, Routine, sleep Given 10/19/2024 1:22 AM EDT 3 mg multivitamin tablet 1 tablet 1 tablet, Oral, Daily, First dose on Carrie 10/17/24 at 2000, Until Discontinued, Routine, Pre-Delivery Given 10/19/2024 8:02 AM EDT 1 tablet Given 10/18/2024 9:15 AM EDT 1 tablet mupirocin (Bactroban) 2 % ointment 1 Application Each Nostril, 2 times daily, 10 doses, First dose on Mon10/18/24 at 1030, Last dose on Mon10/22/24 at 2100, Routine Given 10/19/2024 9:03 PM EDT 1 Application Given 10/19/2024 8:05 AM EDT 1 Application Given 10/18/2024 8:45 PM EDT 1 Application ondansetron (Zofran) 4 MG/5ML solution 4 mg 4 mg, Oral, Every 6 hours PRN, Starting on Carrie 10/17/24 at 1911, Until Mon10/20/24 at 1216, Routine, Pre-Delivery, nausea, vomiting ondansetron (Zofran) injection 4 mg 4 mg, Intravenous, Every 6 hours PRN, Starting on Carrie 10/17/24 at 1911, Until 10/20/24 at 1216, Routine, Pre-Delivery, vomiting, nausea ondansetron ODT (Zofran-ODT) disintegrating tablet 4 mg 4 mg, Oral, Every 6 hours PRN, Starting on Carrie 10/17/24 at 1911, Until Mon10/20/24 at 1216, Routine, Pre-Delivery, nausea, vomiting pantoprazole (Protonix) EC tablet 40 mg 40 mg, Oral, Daily, First dose on 10/19/24 at 0200, Until Discontinued, Routine Given 10/19/2024 1:21 AM EDT 40 mg pantoprazole (Protonix) injection 40 mg 40 mg, Intravenous, Daily, First dose on Mon10/20/24 at 0900, Until Discontinued, Routine potassium & sodium phosphates (Phos-NaK) 280-160-250 MG packet 2 packet 2 packet, Oral, 4 times daily with meals and nightly, First dose on Mon10/18/24 at 2100, Until Discontinued, Routine Given 10/19/2024 9:09 PM EDT Given 10/18/2024 9:12 PM EDT 2 packets potassium chloride CR (Klor-Con) ER tablet 40 mEq 40 mEq, Oral, 3 times daily, First dose on Carrie 10/17/24 at 2100, Until Discontinued, Routine Given 10/19/2024 8:02 AM EDT 40 mEq Given 10/18/2024 8:45 PM EDT 40 mEq Given 10/18/2024 4:25 PM EDT 40 mEq potassium chloride IVPB 10 mEq 10 mEq, Intravenous, Every 1 hour, 4 doses, First dose on Mon10/18/24 at 0700, Last dose on Mon10/18/24 at 1000, RoutineIndications:Hypokalemia New 10/18/2024 2:49 PM EDT 10 mEq 100 mL/hr New Bag 10/18/2024 12:57 PM EDT 10 mEq 100 mL/hr New Bag 10/18/2024 10:36 AM EDT 10 mEq 100 mL/hr potassium chloride IVPB 10 mEq 10 mEq, Intravenous, Every 1 hour, 6 doses, First dose (after last reorder) on [facility] 10/19/24 at 0900, Last dose on [facility] 10/19/24 at 1400, RoutineIndications:Hypokalemia 10/19/2024 3:08 PM EDT 10 mEq 100 mL/hr 10/19/2024 1:42 PM EDT 10 mEq 100 mL/hr New 10/19/2024 12:39 PM EDT 10 mEq 100 mL/hr potassium chloride IVPB 10 mEq 10 mEq, Intravenous, Every 1 hour, 2 doses, First dose on [facility] 10/19/24 at 1715, Last dose on [facility] 10/19/24 at 1815, RoutineIndications:Hypokalemia 10/19/2024 6:34 PM EDT 10 mEq 100 mL/hr New 10/19/2024 5:17 PM EDT 10 mEq 100 mL/hr potassium chloride IVPB 20 mEq 20 mEq, Intravenous, Every 1 hour, 3 doses, First dose on Carrie 10/17/24 at 2030, Last dose on Carrie 10/17/24 at 2230, RoutineIndications:Hypokalemia New 10/17/2024 11:18 PM EDT 20 mEq 50 mL/hr New Bag 10/17/2024 9:54 PM EDT 20 mEq 50 mL/hr potassium chloride IVPB 20 mEq 20 mEq, Intravenous, Once, 1 dose, On Mon10/18/24 at 0215, RoutineIndications:Hypokalemia New Bag 10/18/2024 1:22 AM EDT 20 mEq 25 mL/hr prochlorperazine (Compazine) injection 5 mg 5 mg, Intravenous, Every 6 hours PRN, Starting on Mon10/17/24 at 2335, Until Mon10/20/24 at 1216, Routine, nausea, vomiting Given 10/19/2024 12:19 PM EDT 5 mg Given 10/18/2024 1:53 PM EDT 5 mg Given 10/18/2024 12:17 AM EDT 5 mg promethazine (Phenergan) tablet 12.5 mg 12.5 mg, Oral, Every 6 hours PRN, Starting on Mon10/17/24 at 2110, Until Mon10/20/24 at 1216, Routine, nausea, vomiting Given 10/19/2024 1:21 AM EDT 12.5 mg sodium chloride 0.9 % flush 3 mL 3 mL, Intravenous, As needed, Starting on Mon10/17/24 at 1909, Until Mon10/20/24 at 1216, Routine, Pre-Delivery, line care, 3 mL flush for PERIPHERAL IV CARE ONLY. sodium citrate-citric acid (Bicitra) 500-334 MG/5ML solution 30 mL 30 mL, Oral, Once in OR, 1 dose, Starting on Mon10/17/24 at 2040, Until [place] 10/20/24 at 1216, Routine, Pre-Delivery sodium phosphates 30 mmol in sodium chloride 0.9 % 100 mL IVPB 30 mmol, Intravenous, Once, 1 dose, On Mon10/18/24 at 1915, Routine New 10/18/2024 8:40 PM EDT 30 mmol 30 mL/hr sucralfate (Carafate) 1 GM/10ML suspension 1 g 1 g, Oral, 4 times daily before meals and nightly, First dose on Mon10/19/24 at 1200, Until Discontinued, Routine Given 10/19/2024 11:27 AM EDT 1 g terbutaline (Brethine) injection 0.25 mg 0.25 mg, Subcutaneous, Once as needed, 1 dose, Starting on Carrie 10/17/24 at 2040, Until 10/20/24 at 1216, Routine, Pre-Delivery, per MD ordersIndications:Tachysystole traZODone (Desyrel) tablet 50 mg 50 mg, Oral, Daily, First dose (after last modification) on Mon10/20/24 at 1015, Until Discontinued, Routine ursodiol (Actigall) capsule 300 mg 300 mg, Oral, 3 times daily, First dose on Mon10/18/24 at 0900, Until Discontinued, Routine Given 10/19/2024 8:02 AM EDT 300 mg Given 10/18/2024 8:45 PM EDT 300 mg Given 10/18/2024 4:26 PM EDT 300 mg documented in this encounter Active and Recently Administered Medications Times are shown in EDT. Scheduled Medication Order 10/18/2024 10/19/2024 10/20/2024 azithromycin (Zithromax) 500 mg in sodium chloride 0.9% 250 mL IVPB (vial adapter required) 500 mg, Intravenous, Once in OR, 1 dose, Starting on Carrie 10/17/24 at 2040, Until Mon10/20/24 at 1216, Routine, Pre-Delivery baclofen (Fleqsuvy) 25 MG/5ML oral suspension 10 mg 10 mg, Oral, 3 times daily, First dose on Mon10/19/24 at 2100, Until Discontinued, Routine 2338 (Given - Provider: Kelly Sanabria RN - Comment: patient wanted to wait and take medication now) 0952 (Not Given - Provider: Sybil Lockett RN - Reason: Patient/family refused) ceFAZolin (Ancef) injection 2 g 2 g, Intravenous, Once in OR, 1 dose, Starting on Carrie 10/17/24 at 2040, Until 10/20/24 at 1216, Routine, Pre-Delivery ferrous sulfate EC tablet 324 mg 324 mg, Oral, Daily with breakfast, First dose on Mon10/18/24 at 1245, Until Discontinued, Routine 1238 (Given - Provider: Tex Harman, BRIT) 0802 (Given - Provider: Brandee Cross RN) 0748 (Not Given - Provider: Emiliana Daniel RN - Reason: Patient/family refused) HYDROmorphone (Dilaudid) injection 0.25 mg (COMPLETED) 0.25 mg, Intravenous, Once, 1 dose, On Mon10/18/24 at 1030, Routine 1002 (Given - Provider: Tex Harman, BRIT) hydrOXYzine (Vistaril) injection 25 mg (COMPLETED) 25 mg, Intramuscular, Once, 1 dose, On 10/20/24 at 0045, Routine 0336 (Given - Provider: Kelly Sanabria, BRIT - Comment: patient wanted to wait and take medication now) magnesium oxide (Mag-Ox) tablet 400 mg (CANCELED) 400 mg, Oral, 2 times daily, First dose on Carrie 10/17/24 at 2100, Until Discontinued, Routine 0915 (Given - Provider: Tex Harman, BRIT) magnesium oxide (Mag-Ox) tablet 800 mg 800 mg, Oral, 2 times daily, First dose (after last modification) on Mon10/18/24 at 2100, Until Discontinued, Routine 2045 (Given - Provider: Tiffany Fabian RN) 0802 (Given - Provider: Brandee Cross RN)2250 (Not Given - Provider: Kelly Sanabria RN - Reason: Hold for condition: must add comment - Comment: pt stated she took medication that day shift nurse had left for her. Morena Wren MD aware and states we will continue to monitor patient labs and reorder medication if needed.) 0814 (Not Given - Provider: Emiliana Daniel RN - Reason: Patient/family refused) magnesium sulfate IVPB 2 g (COMPLETED) 2 g, Intravenous, Once, 1 dose, On 10/19/24 at 1715, Routine 1725 (New Bag - Provider: Devorah Marin RN) magnesium sulfate IVPB 2 g (COMPLETED) 2 g, Intravenous, Once, 1 dose, On 10/20/24 at 0315, Routine 0325 (New Bag - Provider: Kelly Sanabria, BRIT) magnesium sulfate IVPB 2 g 2 g, Intravenous, Once, 1 dose, On 10/20/24 at 0830, Routine 0952 (Not Given - Provider: Sybil Lockett RN - Reason: Patient/family refused - Comment: MD Booker aware. Patient educated that she has metabolic imbalance and this should me monitored closely) magnesium sulfate IVPB 4 g (COMPLETED) 4 g, Intravenous, Once, 1 dose, On Mon10/18/24 at 1145, Routine 1238 (New Bag - Provider: Tex Harman, BRIT) magnesium sulfate IVPB 4 g (COMPLETED) 4 g, Intravenous, Once, 1 dose, On Mon10/18/24 at 1915, Routine 1856 (New Bag - Provider: Tex Harman, BRIT) multivitamin tablet 1 tablet 1 tablet, Oral, Daily, First dose on Carrie 10/17/24 at 2000, Until Discontinued, Routine, Pre-Delivery 0915 (Given - Provider: Tex Harman, RN) 0802 (Given - Provider: Brandee Cross, RN) 0814 (Not Given - Provider: Emiliana Daniel RN - Reason: Patient/family refused) mupirocin (Bactroban) 2 % ointment 1 Application Each Nostril, 2 times daily, 10 doses, First dose on Mon10/18/24 at 1030, Last dose on Mon10/22/24 at 2100, Routine 1002 (Given - Provider: Tex Harman RN)2044 (Given - Provider: Tiffany Fabian, BRIT) 08 (Given - Provider: Brandee Cross, BRIT)210 (Given - Provider: Kelly Sanabria RN) 0953 (Not Given - Provider: Sybil Lockett RN - Reason: Patient/family refused) pantoprazole (Protonix) EC tablet 40 mg (CANCELED) 40 mg, Oral, Daily, First dose on 10/19/24 at 0200, Until Discontinued, Routine 012 (Given - Provider: Rosio Dunne, BRIT) pantoprazole (Protonix) injection 40 mg 40 mg, Intravenous, Daily, First dose on 10/20/24 at 0900, Until Discontinued, Routine 0953 (Not Given - Provider: Sybil Lockett RN - Reason: Patient/family refused) potassium & sodium phosphates (Phos-NaK) 280-160-250 MG packet 2 packet 2 packet, Oral, 4 times daily with meals and nightly, First dose on Mon10/18/24 at 2100, Until Discontinued, Routine 2111 (Given - Provider: Tiffany Fabian RN) 0953 (Not Given - Provider: Brandee Cross RN - Reason: Patient/family refused - Comment: Pt educated on need for electrolyte replacement. Refusing at this time r/t pain with swallowing. MD aware, will continue to monitor.)1516 (Not Given - Provider: Brandee Cross RN - Reason: Patient/family refused - Comment: Pt refused due to pain with swallowing. MD aware. Pt educated on risks and benefits. Will continue to monitor.)172 (Not Given - Provider: Devorah Marin RN - Reason: Hold for condition: must add comment - Comment: pt states unable to swallow meds)210 (Given - Provider: Kelly Sanabria, BRIT) 0953 (Not Given - Provider: Sybil Lockett RN - Reason: Patient/family refused) potassium chloride CR (Klor-Con) ER tablet 40 mEq 40 mEq, Oral, 3 times daily, First dose on Mon10/17/24 at 2100, Until Discontinued, Routine 0915 (Given - Provider: Tex Harman, BRIT)1128 (Canceled Entry - Provider: Tex Harman, BRIT)1625 (Given - Provider: Tex Harman RN)2045 (Given - Provider: Tiffany Fabian RN) 0802 (Given - Provider: Brandee Cross, BRIT)1721 (Not Given - Provider: Devorah Marin RN - Reason: Hold for condition: must add comment - Comment: pt having difficulty swallowing)2249 (Not Given - Provider: Kelly Sanabria RN - Reason: Hold for condition: must add comment - Comment: pt stated she took medication that day shift nurse had left for her. Morena Wren MD aware and states we will continue to monitor patient labs and reorder medication if needed.) 0815 (Not Given - Provider: Emiliana Daniel RN - Reason: Patient/family refused) potassium chloride IVPB 10 mEq (COMPLETED) 10 mEq, Intravenous, Every 1 hour, 4 doses, First dose on Mon10/18/24 at 0700, Last dose on Mon10/18/24 at 1000, Routine 0932 (New Bag - Provider: Tex Harman, BRIT)1036 (New Bag - Provider: Tex Harman, RN)1257 (New Bag - Provider: Tex Harman, BRIT)1449 (New Bag - Provider: Tex Harman RN) potassium chloride IVPB 10 mEq (COMPLETED) 10 mEq, Intravenous, Every 1 hour, 6 doses, First dose (after last reorder) on Mon10/19/24 at 0900, Last dose on Mon10/19/24 at 1400, Routine 0904 (New Bag - Provider: Brandee Cross RN)1010 (New Bag - Provider: Brandee Cross, RN)1128 (New Bag - Provider: Brandee Cross, BRIT)1239 (New Bag - Provider: Brandee Cross RN)1342 (New Bag - Provider: Brandee Cross, RN)1508 (New Bag - Provider: Brandee Cross RN) potassium chloride IVPB 10 mEq (COMPLETED) 10 mEq, Intravenous, Every 1 hour, 2 doses, First dose on 10/19/24 at 1715, Last dose on Mon10/19/24 at 1815, Routine 1717 (New Bag - Provider: Devorah Marin RN)1834 (New Bag - Provider: Brandee Cross RN) potassium chloride IVPB 20 mEq (COMPLETED) 20 mEq, Intravenous, Once, 1 dose, On Mon10/18/24 at 0215, Routine 0122 (New Bag - Provider: Orlin Jimenez RN) sodium citrate-citric acid (Bicitra) 500-334 MG/5ML solution 30 mL 30 mL, Oral, Once in OR, 1 dose, Starting on Carrie 10/17/24 at 2040, Until 10/20/24 at 1216, Routine, Pre-Delivery sodium phosphates 30 mmol in sodium chloride 0.9 % 100 mL IVPB (COMPLETED) 30 mmol, Intravenous, Once, 1 dose, On Mon10/18/24 at 1915, Routine 2040 (New Bag - Provider: Tiffany Fabian RN) sucralfate (Carafate) 1 GM/10ML suspension 1 g 1 g, Oral, 4 times daily before meals and nightly, First dose on 10/19/24 at 1200, Until Discontinued, Routine 1127 (Given - Provider: Brandee Cross RN)1700 (Canceled Entry - Provider: Automatic Discharge Provider - Comment: Automatically canceled at discontinue of medication order)2107 (Not Given - Provider: Kelly Sanabria RN - Reason: Patient/family refused) 0954 (Not Given - Provider: Sybil Lockett RN - Reason: Patient/family refused)1200 (Canceled Entry - Provider: Automatic Discharge Provider - Comment: Automatically canceled at discontinue of medication order) traZODone (Desyrel) tablet 50 mg 50 mg, Oral, Daily, First dose (after last modification) on 10/20/24 at 1015, Until Discontinued, Routine 0954 (Not Given - Provider: Sybil Lockett RN - Reason: Patient/family refused) ursodiol (Actigall) capsule 300 mg 300 mg, Oral, 3 times daily, First dose on Mon10/18/24 at 0900, Until Discontinued, Routine 0915 (Given - Provider: Tex Harman, RN)1626 (Given - Provider: Tex Harman, RN)2045 (Given - Provider: Tiffany Fabian RN) 0802 (Given - Provider: Brandee Cross, BRIT)1600 (Canceled Entry - Provider: Automatic Discharge Provider - Comment: Automatically canceled at discontinue of medication order)2251 (Not Given - Provider: Kelly Sanabria RN - Reason: Hold for condition: must add comment - Comment: pt stated she took medication that day shift nurse had left for her. Morena Wren MD aware and states we will continue to monitor patient labs and reorder medication if needed.) 0815 (Not Given - Provider: Emiliana Daniel RN - Reason: Patient/family refused) Continuous Medication Order 10/18/2024 10/19/2024 10/20/2024 dextrose 5 % and lactated Ringer's infusion 75 mL/hr, Intravenous, Continuous, Starting on Mon10/18/24 at 1030, Until Mon10/20/24 at 1216, Routine 1025 (New Bag - Provider: Tex Harman, RN) PRN Medication Order 10/18/2024 10/19/2024 10/20/2024 acetaminophen (Tylenol) tablet 650 mg 650 mg, Oral, Every 4 hours PRN, Starting on Carrie 10/17/24 at 1911, Until 10/20/24 at 1216, Routine, Pre-Delivery, mild pain calcium carbonate (Tums) chewable tablet 1,000 mg 1,000 mg, Oral, 4 times daily PRN, Starting on Carrie 10/17/24 at 1911, Until 10/20/24 at 1216, Routine, Pre-Delivery, indigestion, heartburn cyclobenzaprine (Flexeril) tablet 5 mg (CANCELED) 5 mg, Oral, 3 times daily PRN, Starting on Carrie 10/17/24 at 2338, Until 10/20/24 at 0744, Routine, muscle spasms 1002 (Given - Provider: Tex Harman RN)183 (Given - Provider: Tex Harman RN) 012 (Given - Provider: Rosio Dunne, BRIT)121 (Given - Provider: Brandee Cross RN) famotidine (Pepcid) tablet 20 mg(Linked Group 1) 20 mg, Oral, 2 times daily PRN, Starting on Carrie 10/17/24 at 1911, Until 10/20/24 at 1216, Routine, Pre-Delivery, indigestion, heartburn, or inj IV 1002 (See Alternative - Provider: Tex Harman RN) famotidine PF (Pepcid) injection 20 mg(Linked Group 1) 20 mg, Intravenous, 2 times daily PRN, Starting on Carrie 10/17/24 at 1911, Until 10/20/24 at 1216, Routine, Pre-Delivery, indigestion, heartburn, or tablet po 1002 (Given - Provider: Tex Harman RN) hydrOXYzine pamoate (Vistaril) capsule 25 mg 25 mg, Oral, Every 6 hours PRN, Starting on Carrie 10/17/24 at 2328, Until 10/20/24 at 1216, Routine, anxiety 0018 (Given - Provider: Orlin Jimenez RN)183 (Given - Provider: Tex Harman RN) 012 (Given - Provider: Rosio Dunne, BRIT)233 (Given - Provider: Kelly Sanabria RN) magic mouthwash BLM (FIRST-Mouthwash) suspension 15 mL 15 mL, Swish & Spit, 4 times daily PRN, Starting on 10/20/24 at 0402, Until 10/20/24 at 1216, Routine, mucositis melatonin tablet 3 mg 3 mg, Oral, Nightly PRN, Starting on Carrie 10/17/24 at 2349, Until 10/20/24 at 1216, Routine, sleep 0122 (Given - Provider: Rosio Dunne, BRIT) ondansetron (Zofran) 4 MG/5ML solution 4 mg(Linked Group 2) 4 mg, Oral, Every 6 hours PRN, Starting on Carrie 10/17/24 at 1911, Until 10/20/24 at 1216, Routine, Pre-Delivery, nausea, vomiting ondansetron (Zofran) injection 4 mg(Linked Group 2) 4 mg, Intravenous, Every 6 hours PRN, Starting on Carrie 10/17/24 at 1911, Until 10/20/24 at 1216, Routine, Pre-Delivery, vomiting, nausea ondansetron ODT (Zofran-ODT) disintegrating tablet 4 mg(Linked Group 2) 4 mg, Oral, Every 6 hours PRN, Starting on Carrie 10/17/24 at 1911, Until 10/20/24 at 1216, Routine, Pre-Delivery, nausea, vomiting prochlorperazine (Compazine) injection 5 mg 5 mg, Intravenous, Every 6 hours PRN, Starting on Carrie 10/17/24 at 2335, Until 10/20/24 at 1216, Routine, nausea, vomiting 0017 (Given - Provider: Orlin Jimenez RN)1353 (Given - Provider: Tex Harman RN) 1219 (Given - Provider: Brandee Cross RN) promethazine (Phenergan) tablet 12.5 mg 12.5 mg, Oral, Every 6 hours PRN, Starting on Carrie 10/17/24 at 2110, Until 10/20/24 at 1216, Routine, nausea, vomiting 0121 (Given - Provider: Rosio Dunne, BRIT) sodium chloride 0.9 % flush 3 mL(Linked Group 3) 3 mL, Intravenous, As needed, Starting on Carrie 10/17/24 at 1909, Until 10/20/24 at 1216, Routine, Pre-Delivery, line care, 3 mL flush for PERIPHERAL IV CARE ONLY. terbutaline (Brethine) injection 0.25 mg 0.25 mg, Subcutaneous, Once as needed, 1 dose, Starting on Mon10/17/24 at 2040, Until Mon10/20/24 at 1216, Routine, Pre-Delivery, per MD orders Linked Groups Order Group 1: famotidine (Pepcid) tablet 20 mgJump to med 20 mg, Oral, 2 times daily PRN, Starting on Mon10/17/24 at 191, Until Mon10/20/24 at 1216, Routine, Pre-Delivery, indigestion, heartburn, or inj IV Or famotidine PF (Pepcid) injection 20 mgJump to med 20 mg, Intravenous, 2 times daily PRN, Starting on Mon10/17/24 at 191, Until Mon10/20/24 at 1216, Routine, Pre-Delivery, indigestion, heartburn, or tablet po Group 2: ondansetron ODT (Zofran-ODT) disintegrating tablet 4 mgJump to med 4 mg, Oral, Every 6 hours PRN, Starting on Mon10/17/24 at 191, Until Mon10/20/24 at 1216, Routine, Pre-Delivery, nausea, vomiting Or ondansetron (Zofran) injection 4 mgJump to med 4 mg, Intravenous, Every 6 hours PRN, Starting on Mon10/17/24 at 191, Until Mon10/20/24 at 1216, Routine, Pre-Delivery, vomiting, nausea Or ondansetron (Zofran) 4 MG/5ML solution 4 mgJump to med 4 mg, Oral, Every 6 hours PRN, Starting on Mon10/17/24 at 191, Until Mon10/20/24 at 1216, Routine, Pre-Delivery, nausea, vomiting Group 3: Insert peripheral IV (CANCELED) Once, On Mon10/17/24 at 191, For 1 occurrence, Pre-Delivery And Saline lock IV (CANCELED) Once, On Mon10/17/24 at 191, For 1 occurrence, Pre-Delivery And sodium chloride 0.9 % flush 3 mLJump to med 3 mL, Intravenous, As needed, Starting on Mon10/17/24 at 1909, Until Mon10/20/24 at 1216, Routine, Pre-Delivery, line care, 3 mL flush for PERIPHERAL IV CARE ONLY. documented in this encounter Additional Health Concerns Infection Onset Date Last Indicated Resolved Time COVID-19 Rule-Out 10/17/2024 10/17/2024 10/19/2024 1:56 AM EDT Respiratory Rule-Out 10/17/2024 10/17/2024 025 11:23 PM EDT Assessment Noted Time A fall risk assessment has been complete d for the patient 09/26/2024 8:15 AM EDT A Body Mass Index follow-up plan has been documented for the patient 10/20/2024 9:52 AM EDT documented as of this encounter Care Teams Hotel Or Motel Manager Relationship Specialty Start Date End Date Norma Friedman APRN [address] [place] [address] PCP - General 09/23/24 Lizz Trinh, RN [facility] Registered Nurse Cardiology 09/26/24 documented as of this encounter
--- OUTSIDE RECORDS SUMMARY | 2024-10-19 01:03 | XMS_ITS | Encounter Summary ---
Author Organization Healthcare Address [address] [place] [address] Care Team Providers Care Natural Science Curator Name Role Phone jennyfer Kadedev Coy APRN Primary Care Provider +1- [phone] Lizz Trinh RN Unavailable Unavailable Reason for Visit * Auth/Cert (Routine) Specialty Diagnoses / Procedures Referred By Tarik t Referred To Contact Diagnoses Hypokalemia Electrolyte abnormality Hilton Montelongo MD [address] [address] Phone: tel: fax: [facility] [address] [place] [phone] Phone: tel: fax: Referral ID Status Reason Start Date Expiration Date Visits Re quested Visits Authorized [id number] 1 1 Encounter Details Date Type Department Care Team (Late st Contact Info) Description 10/19/2024 1:03 AM EDT Anesthesia Event [facility] Delivery [address] [place] [address] Everett Farrar MD [address] [place] [address] Anesthesia Record Procedure Summary Procedure Name Responsible Anesthesiologist Anesthesia Start Time Anesthesia Stop Time Labor Consult Events No events on file. Meds * Agents No agents on file. * Blood No blood administrations on file. Lines, Drains, and Airways Type Details Placement Removal PICC Double Lumen Orientation: Right; Location: Brachial vein 10/17/242026 by documented in this encounter Social History Tobacco [...] more drinks on one occasion? 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 No relevant active problems [...] Upcoming Encounters Date Type Department Care Team ([facility] st Contact Info) Description 10/31/2024 Hospital Encounter [facility] Delivery [address] [place] [address] 11/14/2024 11:15 AM EDT Visit Medical Office Building Obstetrics and Gynecology [address] [facility], [address] [place] [phone] Nneka Gipson MD [address] [place] [address] 12/25/2024 1:00 PM EST Office Visit [facility] Min[facility] Metabolism [address], [address] [place] [phone] documented as of this encounter Visit Diagnoses Not on filedocumented in this encounter Additional Health Concerns Infection Onset Date Last Indicated Resolved Time COVID-19 Rule-Out 10/17/2024 10/17/2024 10/19/2024 1:56 AM EDT Assessment Noted Time A fall risk assessment has been complete d for the patient 09/26/2024 8:15 AM EDT A Body Mass Index follow-up plan has been documented for the patient 10/20/2024 9:52 AM EDT documented as of this encounter Care Teams Natural Science Curator Relationship Specialty Start Date End Date Norma Friedman APRN [address] [place], [place] [id number] PCP - General 09/23/24 Lizz Trinh, RN [facility] Registered Nurse Cardiology 09/26/24 documented as of this encounter
--- OUTSIDE RECORDS SUMMARY | 2024-10-24 08:00 | XMS_ITS | Encounter Summary ---
Author Organization Healthcare Address [address] [place] [address] Care Team Providers Care Gallery Intern Name Role Phone Norma Friedman ED TEACHER Primary Care Provider [phone] Lizz Trinh RN Unavailable Unavailable Reason for Visit * Reason Comments Edema * Consultation (Routine) - Closed Specialty Diagnoses / Procedures Referred By Tarik t Referred To Contact Diagnoses Palpitations Syncope and collapse Nneka Block MD [address] [place] [address] Phone: tel: fax: Referral ID Status Reason Start Date Expiration Date Visits Re quested Visits Authorized [id number] Closed 09/26/2024 03/28/2026 1 1 Encounter Details Date Type Department Care Team (Late st Contact Info) Description 10/24/2024 8:00 AM EDT Office Visit [facility] [address], [address] [place] [address] Nneka Block MD [address] [place] [address] Palpitations (Primary Dx) Social History [...] more drinks on one occasion? Never 09/23/2024 Calion Depression Scale Answer Date Recorded Calion Depression Scale Total 0 09/23/2024 The thought [...] ? Natural and processed cheeses such as Slovak, blue, mozzarella, and Emirati Meat and protein substitutes Special instructions: ? [...] ? Oat meal ? Whole wheat ? [place] ? Pumpernickel ? White ? Raisin ? Crackers prepared without butter, lard, coconut, or palm oil ? Dry cereals that contain allowed fats ? Rice and pasta prepared with allowed fats ? Egg noodles (limit to ?? cup per day) ? Malagasy ? Brazilian ? Turkish muffins ? Pancakes, waffles, biscuits, and cornbread made with allowed ingredients ? Flat bread ? Yemi crackers ? Matzoh crackers ? Whole grain or enriched cereals prepared with allowed oils ? Wheat germ Avoid: ? Egg or cheese bread ? Butter rolls ? Commercially prepared products: biscuits, muffins, sweet rolls, cornbread, pancakes and waffles, new zealander toast, croissants ? Noodles ? Cheese crackers ? Flavored crackers prepared with saturated fats ? Any cereal prepared with saturated fat ? Qatari noodles ? Rice and pasta prepared with eggs, cream, or high fat cheese Fruits Choose: ? Any fresh, frozen, canned, or dried fruit or juice ? Avocado Vegetables Choose: ? Any fresh, frozen, or canned vegetables ? Potatoes prepared with allowed fat ? Olives (limit to 10 small or 5 large per day) Avoid: ? Buttered, creamed, or fried vegetables ? [id number], commercially made ? Vegetables prepared in a [...] sizes are listed below: ? Nuts: The [place] [employer] recommends including 5 servings of [...] avocado oil, etc.: 1 tablespoon o The [place] [employer] Association recommends limiting oils to 3 [...] ingredients ? Sorbet ? Ice milk ? Sulphur ? Gum drops ? Jelly beans ? [...] saturated fats, cheese, and/or egg yolks ? [place] chips ? Potato chips and other snack [...] much from the food you eat. Use AgentPiggyer to Help Build Your Meals The Bucky BoxTracker can help you plan and track your meals and activity. You can look up individual foods to see or compare their nutritional value. You can get guidelines for what and how much you should eat. You can compare your food choices. And you can assess personal physical activities and see ways you can improve. Go to www.HazelTreemyplate.gov/Cuetracker/. Eating Heart-Healthy Food: Using the DASH Plan [...] from the original note were not included. [address]87 Aerobic Exercise for a Healthy Heart Exercise [...] provider. Last Reviewed Date: 2024 00:00:00 ?? 5992-2907 The [employer]. All rights reserved. This information is not intended as a substitute for professional medical care. Always follow your healthcare professional's instructions. * Patient Instructions - Lexy Felix RN - 10/24/2024 8:00 AM EDT - For any questions or concerns, please contact Dr. Block's nurse, Lexy [phone]. documented in this encounter Plan of Treatment Upcoming Encounters Date Type Department Care Team ([facility] st Contact Info) Description 10/31/2024 Hospital Encounter [facility] Labor and Delivery [address] [place] [address] 11/14/2024 11:15 AM EDT Visit Medical Office Building Obstetrics and Gynecology [address], [address] [place] [address] Nneka Gipson MD [address] [place] [address] 12/25/2024 1:00 PM EST Office Visit Professional [facility] Nephrology, Bone & Mineral Metabolism [address], [address] [place] [address] documented as of this encounter [...] BLOOD ORDERABLES Final Result Performing Organization Address [facility] Co de Phone Number HEALTHCARE [facility] [address] [place] [address] * N-Terminal Probnp, Plasma (10/24/2024 8:38 AM EDT) N-Terminal, PROBNP, Plasma 175 0 - 449 pg/mL 10/24/2024 11:40 AM EDT HEALTH[facility]ARE [facility] Blood Venous blood specimen / Unknown Venipuncture / Unknown 10/24/2024 8:38 AM EDT 10/24/2024 8:40 AM EDT Nneka Block MD LAB BLOOD ORDERABLES Final Result Performing Organization Address [facility] de Phone Number HEALTHCARE [facility] [address] [place] [address] documented in this encounter Visit Diagnoses Diagnosis [...] documented as of this encounter Care Teams Gallery Intern Relationship Specialty Start Date End Date Norma Friedman APRN [address] [place] [address] PCP - General 09/23/24 Lizz Trinh, RN [facility] Registered Nurse Cardiology 09/26/24 documented as of this encounter
--- OUTSIDE RECORDS SUMMARY | 2024-10-24 09:45 | XMS_ITS | Encounter Summary ---
Author Organization Healthcare Address [address] [place] [address] Care Team Providers Care Cat Wagon Operator Name Role Phone Norma burger JOLENE Primary Care Provider [phone] Lizz Trinh RN Unavailable Unavailable Reason for Visit * Reason Comments Routine Visit Encounter Details Date Type Department Care Team (Latest Contact Info) Description 10/24/2024 9:45 AM EDT Routine Medical Office Building Obstetrics and Gynecology [address], [address] [place] [address] Laury Cruz MD [address] [place] [address] Supervision of high risk , [...] drinks on one occasion? Never 09/23/2024 [place] Depression Scale Answer Date Recorded [place] Depression Scale Total 0 09/23/2024 The thought [...] from the original note were not included. [address] First Trimester Assessment Important phone numbers [facility]: [phone] Genetic Counselor - [place]: [phone] Congratulations on your ! Learn more about [...] NIPT might not be covered. Your maximum pqj-km-qjbygw cost would be $299 if NIPT is not covered. If you would like to check the cost of NIPT based onyour insurance plan, please call the lab. The lab we use is [facility]. Call its billing specialists at [phone]. The name of their NIPT is called ???[id number] Plus.?? Tests for parents (inherited conditions) Carrier [...] the cost of standard carrierscreening, the maximum nrq-vo-puvito cost would be $199. If you would like to check the cost based on your insurance plan, please call the lab. The lab we use is [facility]. Call their billing specialistsat [phone]. Expanded Carrier Screening (ECS): This is an optional test. It checks if you and your partner carrybetween 200-500 genetic conditions. The cost depends on the specific test you choose. If ECS interests you, please call Oliva Hoffman at [phone] for more information. The tests listed above [...] the risk of stillbirth or having a wbu-fdrlu-zgkbgd baby. If you smoke, quit now. Alcohol [...] money problems,housing, access to food, and childcare worker. If you can???t get to medical [...] water with a slice of lemon or salamatof. (These can also help ease an upset [...] water with a slice of lemon or salamatof. (These can also help ease an upset [...] Which medicines are safe? No prescription or lsso-haf-shbbidg medicine is safe for everyone all of [...] bring the load nearer. Get a good salvager helper. Test the weight of the load. Tighten [...] Can I paint my nails? Yes. Nail somali is not thought to be dangerous during . Just be careful about breathing the fumes. Keep windows open or use a fan. However, long-term exposure to the solvents used to removenail somali may not be safe. If you work [...] baby: provides contact that babies love. Frequent livt-vq-jtoc time with Mom is calming andcomforting. Breastmilk [...] rate of diabetes, osteoporosis, and depression. A independent beauty consultant is a healthcare provider specially trained to help moms. Your nurse, laboratory immunologist, cooling machine operator, or family practice doctor can also help [...] with a nurse. [facility] (Triage) [facility] [address] [place] [address] [place] [facility] Medical Office Building [address], [address] [place] [address] [facility] [address] [place] [address] Family Practice [address], Third [address] [place] [address] [facility] [address] [place] [address] [facility] Obstetrics & Gynecology [place] [address] [place] [address] [facility] Obstetrics & Gynecology [place] [address] [place] [address] : Your Second Trimester Changes [...] secondhand smoke. Don???t breathe fumes from nail somali, hair spray, cleansers, or other chemicals. How daily issues affect your health Many things in your daily life impact your health. This can include transportation, money problems,housing, access to food, and childcare worker. If you can???t get to medical [...] you have concerns. Keeping a healthy mouth [place] twice daily with fluoride toothpaste. Floss at [...] expect during a blood glucose screening: The [place] [employer] Obst[employer]ians and Gynecologists (ACOG) advises [...] contact your health care provider or visit www.[employer]. [facility]: Birthing Center Triage: [facility]: Family Practice: [facility] Obstetrics & Gynecology [place]: [facility] Obstetrics [facility] Gynecology [place]: [phone] FAQs How often should I nurse? Feed [...] How many months should I nurse? The [place] [employer] Obstetricians and Gynecologists (ACOG) and the [place] [employer] Pediatrics (AAP) both recommend that parents start as soon as possible after , ideally within the first hour. Research has shown that time fess-ut-dcjk after delivery helps to encourage this. Both [...] important to ask for help from a independent beauty consultant or your healthcare provider. It could be a sign that your baby is having trouble latching correctly and may not be transferring milk from your breast well. Most of the time, this issue is common and can be easilymanaged with a little help. But should not cause ongoing pain. So it is important to find a trained independent beauty consultant who can help evaluate the latch. [...] supplements. How long should I breastfeed? The [place] [employer] Pediatrics recommends that you breast [...] money problems,housing, access to food, and childcare worker. If you can???t get to medical [...] discharge Phone Numbers [facility] (Triage): [facility]: [facility]: [facility]: [facility]: [facility] Obstetrics & Gynecology [place]: [facility] Obstetrics & Gynecology [place]: What Is [...] or irregular heart rate Beginning to Breastfeed: Iizu-bk-Uuqm What is jgld-qq-fjxk? After , your nurse will clean and dry your baby. Your baby will then be placed on your chest kdvp-bt-lclz right away. Your baby???s shoulders should be [...] the first time. Your baby will stay owch-zw-zheh with you for as long as you like after . If you get too sleepy, let your nurse know. Only you or your partner can do bcoj-ho-tpom with your baby these first few hours. Visitors may come in, but you must not pass your baby around during this time. This could cause your baby to get cold and then sick. Docv-vf-cazu is a great way to remind your [...] also lowers your risk of depression. Being mgha-mr-rhmi with your baby can help reduce your [...] for feeding. Placing your baby in the igya-jp-wxco position on your chest. This can help [...] How many months should I nurse? The [place] [employer] Obstetricians and Gynecologists (ACOG) and the [place] Academy [employer] Pediatrics (AAP) both recommend that parents start as soon as possible after , ideally within the first hour. Research has shown that time ymyc-cq-cldm after delivery helps to encourage this. Both [...] important to ask for help from a independent beauty consultant or your healthcare provider. It could be a sign that your baby is having trouble latching correctly and may not be transferring milk from your breast well. Most of the time, this issue is common and can be easilymanaged with a little help. But should not cause ongoing pain. So it is important to find a trained independent beauty consultant who can help evaluate the latch. [...] age 2 or older Beginning to Breastfeed: Yxle-df-Qhii What is vavd-cj-cjxb? After , your nurse will clean and dry your baby. Your baby will then be placed on your chest sdhd-yq-qzqs right away. Your baby???s shoulders should be [...] the first time. Your baby will stay uxeo-hb-kacu with you for as long as you like after . If you get too sleepy, let your nurse know. Only you or your partner can do mzkp-xx-tqaz with your baby these first few hours. Visitors may come in, but you must not pass your baby around during this time. This could cause your baby to get cold and then sick. Xwrf-bx-kwfb is a great way to remind your [...] also lowers your risk of depression. Being dxtl-ur-mxtv with your baby can help reduce your [...] for feeding. Placing your baby in the bueo-zb-mltx position on your chest. This can help [...] to latch on correctly. [facility] can help with any breast feeding [...] with your provider. And talk with a independent beauty consultant who has worked with trans and [...] is whyit???s important to talk with a independent beauty consultant. They can review your health history, answer your questions, and advise you on a plan to help you create a milk supply. Creating a milk supply: inducing Inducing is done by stimulating and emptying the breasts. It will take some work and someeffort to build up a milk supply. Your independent beauty consultant will work closely with you. You will likely need to try a combination of: Breast stimulation. Breast stimulation triggers the hormones that affect milk production. This may be done by using a breast pump or stimulating your nipples by hand. Your independent beauty consultant will advise you on how often [...] Induced takes planning, commitment, and support. Your independent beauty consultant can talk with you about your options. It is helpful to start the process a few months before the baby arrives. What are some issues that may affect my milk supply? Your personal history impacts your ability to chestfeed. Each person???s history as a trans or gender nonbinary person is different. So it???s important to work with a independent beauty consultant who understands your personal situation and [...] is available from human milk echavarria. Your independent beauty consultant can helpyou learn more about finding [...] The time you spend snuggling together with nlui-pf-sllr contact is special and can: Help you mirza with your baby Help your baby go to sleep Help ease your baby???s pain Promote your baby???s sucking reflex Holds Rxal-mi-Cphe : Latch On Cuwf-ub-Fqds Expressing Breastmilk Work, school, or even a [...] Expressing by Hand or by Pump Your independent beauty consultant or other healthcare provider can help [...] on guidelines from the CDC and the [place] [employer] Pediatrics (AAP). Type of storage [...] of your pump is clean. Follow the copy reader???s instructions on which parts to clean. Wash pump parts after each use. You may use a aesthetics instructor to clean your pump parts. Place the setting on hot water and heated drying cycle or sanitize cycle. Place the parts on the upper rack. Be sure to wash your hands before taking them out of the aesthetics instructor. Let them air dry if not already dry. Or you may boil the parts if you do not have a aesthetics instructor. Place the parts in a clean avila [...] expect: We will weigh your baby. A cooling machine operator will check your baby. A independent beauty consultant will be here to answer questions, watch feeding, and provide resources. Location: The clinic is inside the General Pediatrics Clinic. It is on the second floor [facility]: [facility] [place] [address]. Hours: Monday-Monday, 12:45 p.m.-3:20 p.m. For an appointment: Call [phone]. Community Resources Consulting [facility] [address] [place] [address] Care with Nan [email or web address].nexTune Helplines [facility] 24 hour Helpline [facility] Services Online Resources Novaleddroplets.nexTune med.darby.[email or web address]/[email or web address]/professional-education/.html [facility] [address] [place] [id number] Support Groups Ariadna Bustos (MAKI) [facility] meets on the last Monday of each month from 10-11AM. Meetings are held at the [facility]. [address] [place] [address] ([place]) Facebook group: [place], [place] Baby [facility] Group Meetings are monthly. Call or go online to register. www.[employer] Breast Pump Coverage Below are medical supply options to buy double electric breast pumps. Please check with your insurance carrier, as some coverage has changed. You might be able to order a pump 30-60 days before your due date. [employer]: ([facility]ly [facility] Oxygen and Coppola's) [facility] covers: Medela Pump N Style Starter Kit 100%, Spectra II 100% supervisor instrument repair at: Krish Vargas [address] [place], [place] [employer] Website: www.[employer] or Email: [email or web address] [facility] covers: Ameda Finesse, Medela Pump N Style Starter Kit, Spectra S II, Lansinoh Smart Pump. Ships within 30 days of due date [employer]: www.momsgetmore.nexTune Provides Hygeia pumps only (double electric closed system). Text PUMP to for eligibility. [facility] Approved Mom[employer] Express Website: www.mommyexpress.com or info@mommyPersonal Development Bureau.com [facility] covers: 100% for AmJosiane See 2 Upgrades available: $25 fee for Medela Max Ozzie, $55 fee for Spectra S II Delivers to your home Pumps for Mom ([facility]) Office: Email: [email or web address] Also carries support garments for and [employer] Website: [email or web address] Office: * Progress Notes - Kaitlyn Richter MD - 10/24/2024 9:45 AM EDT [facility] Follow Up Subjective Whitney Presley is [...] Brandan with primary OB Dr Marin in [facility] O+/RI/HCV-/HIV- Needs HBV and syphilis G/C negative [...] Had tachycardia and arrhythmia during admission to [facility] on 09/19 HR to 170s-180s [...] Kaitlyn Richter MD PGY-2, Obstetrics and Gynecology [facility] Cosigned by Laury Cruz MD at 10/24/2024 [...] Encounter [facility] Labor and Delivery [address] [place] [address] 11/14/2024 11:15 AM EDT Visit Medical Office Building Obstetrics and Gynecology [address], [address] [place] [id number] Nneka Gipson MD [address] [place] [address] 12/25/2024 1:00 PM EST Office Visit [facility] Nephrology, Bone & Mineral Metabolism [address], [address] [place] [address] Scheduled Orders Name Type Priority [...] Ketones, Urine Negative Negative mg/dL POCT Specific [place], Urine 1.015 POCT Blood, Urine Negative Negative POCT pH, Urine 8.5(A) 5.0 to 8.0 POCT Protein, Urine Trace(A) Negative mg/dL POCT Urobilinogen, Urine 0.2 0.2, 1 E.U./dL POCT Nitrite, Urine Negative Negative POCT Leukocyte Esterase, Urine Negative Negative Test Strip Lot Number [id number] Test Strip Lot Expiration 08/2025 Urine Urine [...] documented as of this encounter Care Teams Cat Wagon Operator Relationship Specialty Start Date End Date Norma Friedman APRN [address] [place] [address] PCP - General 09/23/24 Lizz Trinh, RN [facility] Registered Nurse Cardiology 09/26/24 documented as of this encounter
--- OUTSIDE RECORDS SUMMARY | 2024-10-25 07:08 | XMS_ITS | Clinical Summary ---
Author Organization [facility] [place] [address] Phone Care Team Providers Care Paramedical Aide Name Role Phone Unavailable Primary Care Provider [...] migh t be different from the original. [facility] - Edwardo Ojeda MD Interventional Pain Protocol: NS Appt 03/29/22 Letter Sent Maxime report completed (EVERY 3 MONTHS) ( 03/23/22) Pharmacy: [facility] [address] [place] [address] - [address] [facility] south - [phone] No known active problems Social History Tobacco [...] patient's age to complete this topic Insurance [employer] [facility] [address]
--- OUTSIDE RECORDS SUMMARY | 2024-10-25 07:08 | XMS_ITS | Encounter Summary ---
Author Organization Healthcare Address [address] [place] [address] Care Team Providers Care Surveyor Instrument Assistant Name Role Phone Norma Friedman JOLENE Primary Care Provider +1- [phone] Lizz Trinh RN Unavailable Unavailable Encounter Details Date Type Department Care Team (Late Contact Info) Description 07/22/2024 Community [facility] Community Practice [address] [place] [address] aSndy Cardenas MD [address] [facility] [address] [place] [id number] Social History Tobacco Use Types Packs/Day Years [...] Department Care Team (Late Contact Info) Description 10/31/2024 Hospital Encounter [facility] H Labor and Delivery [address] [place] [address] 11/14/2024 11:15 AM EDT Visit Medical Office Building Obstetrics and Gynecology [address], [address] [place] [address] Nneka Gipson MD [address] [place] [address] 12/25/2024 1:00 PM EST [facility], [facility] Mineral Metabolism [address], [address] [place] [address] documented as of this encounter Visit Diagnoses Not on filedocumented in this encounter Additional Health Concerns Infection Onset Date Last Indicated Resolved Time COVID-19 Rule-Out 10/17/2024 10/17/2024 10/19/2024 1:56 AM EDT Respiratory Rule-Out 10/17/2024 10/17/2024 025 11:23 PM EDT documented as of this encounter Care Teams Surveyor Instrument Assistant Relationship Specialty Start Date End Date Norma Friedman APRN [address] [facility] [place] [address] PCP - General 09/23/24 Lizz Trinh, RN [facility] Registered Nurse Cardiology 09/26/24 documented as of this encounter
--- OUTSIDE RECORDS SUMMARY | 2024-10-25 07:08 | XMS_ITS | Encounter Summary ---
Author Organization Healthcare Address [address] [place] [address] Care Team Providers Care Credit Intern Name Role Phone Norma Friedman SUPERVISOR MAPPING Primary Care Provider +1- [phone] Lizz Trinh RN Unavailable Unavailable Encounter Details [...] more drinks on one occasion? Never 09/23/2024 [place] Depression Scale Answer Date Recorded [place] Depression Scale Total 0 09/23/2024 The thought [...] H Labor and Delivery [address] [place] [address] 11/14/2024 11:15 AM EDT Visit Medical Office Building Obstetrics and Gynecology [address], [address] [place] [address] Nneka Gipson MD [address] [place] [phone] 12/25/2024 1:00 PM EST Office Visit [facility] Nephrology, Bone & Mineral Metabolism [address], [address] [place] [address] documented as of this encounter [...] as of this encounter Care Teams Credit Intern Relationship Specialty Start Date End Date Norma Friedman APRN [address] [place] [address] PCP - General 09/23/24 Lizz Trinh, RN [facility] Registered Nurse Cardiology 09/26/24 documented as of this encounter
--- OUTSIDE RECORDS SUMMARY | 2024-10-25 07:09 | XMS_ITS | Encounter Summary ---
Author Organization Healthcare Address [address] [place] [address] Care Team Providers Care Financial Reporting Specialist Name Role Phone Norma Friedman JOLENE Primary Care Provider +1- [phone] Lizz Trinh RN Unavailable Unavailable Encounter Details Date Type Department Care Team ([facility] Contact Info) Description 10/17/2024 Telephone Medical Office Building Obstetrics and Gynecology [address] [place] [address] Tracy Segovia, RN [facility] ULTRASOUND CLINIC 1st [facility] Social History Tobacco Use Types Packs/Day Years [...] more drinks on one occasion? Never 09/23/2024 [place] Depression Scale Answer Date Recorded [place] Depression Scale Total 0 09/23/2024 The thought [...] Encounter - Tracy Segovia RN - 10/17/2024 3:00 PM EDT Received call from Brandee at Dr. Ramon's office in [place], she was calling because Whitney is notscheduled [...] ED for evaluation. I contacted Brenda OB captain waiter with report on expectant patient. Message sent to Dr. Wheeler with patient update. documented in this encounter Plan of Treatment Upcoming Encounters Date Type Department Care Team (Late st Contact Info) Description 10/31/2024 Hospital Encounter [facility] H Labor and Delivery [address] [place] [address] 11/14/2024 11:15 AM EDT Visit Medical Office Building Obstetrics and Gynecology [address] [place] [address] Nneka Gipson MD [address] [place] [address] 12/25/2024 1:00 PM EST Office [facility] Neph[facility], Bone & Mineral Metabolism [address], [address] [place] [address] documented as of this encounter Visit Diagnoses Not on filedocumented in this encounter Additional Health Concerns Assessment Noted Time A fall risk assessment has been complete d for the patient 09/26/2024 8:15 AM EDT A Body Mass Index follow-up plan has been documented for the patient 10/20/2024 9:52 AM EDT documented as of this encounter Care Teams Financial Reporting Specialist Relationship Specialty Start Date End Date Norma Friedman APRN [address] [place] [address] PCP - General 09/23/24 Lizz Trinh, RN [facility] Registered Nurse Cardiology 09/26/24 documented as of this encounter
--- OUTSIDE RECORDS SUMMARY | 2024-10-25 07:09 | XMS_ITS | Encounter Summary ---
[facility] Organization [facility] Address [address] [place] [id number] Care Team Providers Care Pattern Data Operator Name Role Phone IvyKade goldbergjoseseven JOLENE Primary Care Provider + [phone] Encounter Details Date Type Department Care Team (Late st Contact Info) Description 09/26/2024 Documentation [facility] LABOR DELIVERY [address] [place] [phone] Christy Zabala, RN Social History Tobacco Use [...] hard at all 05/28/2024 [facility] [place] of Occupat ional Health - Occupational Stress [...] of chart reveals patient [facility] to [facility] to continue care. Will plan to review chart around EDC for delivery information. documented in this encounter Plan of Treatment Upcoming Encounters Date Type Department Care Team (Late st Contact Info) Description 01/20/2025 3:30 PM EST Office Visit [facility] GASTROENTEROLOGY [address] [phone] Robbin Escalante MD [address] [address] documented as of this encounter Visit Diagnoses Not on filedocumented in this encounter Additional Health Concerns Assessment Noted Time PHQ-2 Depression Total Score: 2 05/28/19 25 4:39 PM EDT documented as of this encounter Care Teams Pattern Data Operator Relationship Specialty Start Date End Date Norma Friedman APRN [address] [place] [address] [place] [place] [address] PCP - General Family Medicine 05/14/24 documented as of this encounter
--- OUTSIDE RECORDS SUMMARY | 2024-10-25 07:09 | XMS_ITS | Encounter Summary ---
Author Organization Healthcare Address [address] [place] [address] Care Team Providers Care Associate Store Leader Name Role Phone Norma Friedman JOLENE Primary Care Provider +1- [phone] Lizz Trinh RN Unavailable Unavailable Reason for Visit * Reason Onset Date Comments [facility] Care coordiantion 10/17/2024 Encounter Details Date Type Department Care Team ([facility] st Contact Info) Description 10/17/2024 Telephone Medical Office Building Obstetrics and Gynecology [address], [address] [place] [address] Tracy Segovia, RN [facility] OB ULTRASOUND CLINIC 1st FLR [facility] Care coordiantion Social History Tobacco Use [...] more drinks on one occasion? Never 09/23/2024 [place] Depression Scale Answer Date Recorded [place] Depression Scale Total 0 09/23/2024 The thought [...] at Dr. Ramon's office, we reviewed that Whitnye was seen today by [facility],she had a non reactive NST, and BPP 6/8 ( breathing not seen). Discussed that Whitney declined presenting to [facility] for extended monitoring today or returning to our clinic tomorrow (10/18/24) for a repeat NST. Whitney is agreeable for do an NST with her local OB provider as she is already scheduled for an infusion with their office. Qi agreeable to schedule patient for NST on10/18/24. Offered to send notes from today's appointment, Qi provided me with her office's fax# ([phone]). No additional questions at this time. documented in this encounter Plan of Treatment Upcoming Encounters Date Type Department Care Team (Late st Contact Info) Description 10/31/2024 Hospital Encounter [facility] Labor and Delivery [address] [place] [address] 11/14/2024 11:15 AM EDT Visit Medical Office Building Obstetrics and Gynecology [address], [address] [place] [address] Nneka Gipson MD [address] [place] [address] 12/25/2024 1:00 PM EST Office Visit [facility] Nephrology, Bone & Mineral Metabolism [address], [address] [place] [address] documented as of this encounter Visit Diagnoses Not on filedocumented in this encounter Additional Health Concerns Assessment Noted Time A fall risk assessment has been complete d for the patient 09/26/2024 8:15 AM EDT A Body Mass Index follow-up plan has been documented for the patient 10/20/2024 9:52 AM EDT documented as of this encounter Care Teams Associate Store Leader Relationship Specialty Start Date End Date Norma Friedman APRN [address] [place] [address] PCP - General 09/23/24 Lizz Trinh, RN [facility] Registered Nurse Cardiology 09/26/24 documented as of this encounter
--- OUTSIDE RECORDS SUMMARY | 2024-10-25 07:09 | XMS_ITS | Clinical Summary ---
Author Organization [facility] Address [address] [place] [address] Care Team Providers Care Animal Nurse Name Role Phone Unavailable Primary Care Provider Unavailabl e Source Comments [facility] is fully rolled out with thefollowing exceptions:General Clinical Research [facility] Social History Tobacco Use Types Packs/Day Years [...]
--- OUTSIDE RECORDS SUMMARY | 2024-10-25 07:09 | XMS_ITS | Encounter Summary ---
Author Organization Healthcare Address [address] [place] [address] Care Team Providers Care Radiation Officer Name Role Phone Unavailable Primary Care Provider Unavailabl e Encounter Details Date Type Department Care Team (Late Contact Info) Description 09/17/2024 Telephone [facility] Nephrology, Bone & Mineral Metabolism [address] [facility], [address] [place] [address] Sherley Gold, INTEGRATION DEVELOPER GS - 7 MAIN MEDICAL-SURGICAL Social History [...] Encounter [facility] H Labor and Delivery [address] [place] [address] 11/14/2024 11:15 AM EDT Visit Medical Office Building Obstetrics and Gynecology [address] [facility] [address], [address] [place] [address] Nneka Gipson MD [address] [place] [address] 12/25/2024 1:00 PM EST Office Visit [facility] Nephrology, Bone & Mineral Metabolism [address] [facility] [address], [address] [place] [address] documented as of this encounter Visit Diagnoses Not on filedocumented in this encounter
--- OUTSIDE RECORDS SUMMARY | 2024-10-25 07:09 | XMS_ITS | Encounter Summary ---
Author Organization [facility] Address [address] [place] [id number] Care Team Providers Care Glue Maker Name Role Phone Unavailable Primary Care Provider Unavailabl e Encounter Details Date Type Department Care Team (Late st Contact Info) Description 09/17/2024 Telephone Medical Office Building Obstetrics and Gynecology [address] [facility], [address] [place] [address] Josefina Shay RN [facility] [address] [place] [address] Social History Tobacco Use Types Packs/Day Years [...] recently had a full Nephrology work-up at [facility] that was negative and was not [...] Encounter PAV H Labor and Delivery [address] [place] [address] 11/14/2024 11:15 AM EDT Visit Medical Office Building Obstetrics and Gynecology [address] [facility] [address] [facility], [address] [place] [address] Nneka Gipson MD [address] [place] [address] 12/25/2024 1:00 PM EST Office Visit [facility] Nephrology, Bone & Mineral Metabolism [address] [facility] [address], [address] [place] [address] documented as of this encounter Visit Diagnoses Not on filedocumented in this encounter
--- OUTSIDE RECORDS SUMMARY | 2024-10-25 07:09 | XMS_ITS | Encounter Summary ---
[facility] [address] [place] [id number] Care Team Providers Care Boiler Maker Name Role Phone IvyNorma goldberg JOLENE Primary Care Provider + [phone] Reason for Visit * Reason Onset Date Comments Advice Only 10/10/2024 Encounter Details Date Type Department Care Team (Late st Contact Info) Description 10/10/2024 Telephone [facility] MATERNAL MEDICINE [address] [facility] [place] [address] [place] [address] Lyudmila Germain, yard attendant Only Social History Tobacco Use Types Packs/Day Years Used Date Smoking Tobacco: Never Smokeless Tobacco: Never Alcohol Use Standard Drinks/Week Comments Never 0 (1 standard drink = 0.6 oz pur e alcohol) [facility] Utilities Answer Date Recorded In the past 12 months has [employer], gas, oil, or water [employer] threatened to shut off services in your [...] Not hard at all 05/28/2024 [facility] [place] of Occupat ional Health - Occupational Stress [...] Late entry: Patient called desiring appointment with [facility] due to hypokalemia and hypomagnesemia requiring infusions every other day. Per food service coordinator, referral was received here last week but our physicians determined patient needs to continue receiving [facility] care at as she sees otherspeciality physicians (cardiology, nephrology) there as well. Discussed this with patient who states Dr. Weller () refused to see her again and she has no options. Patient reported her physicians at [facility] told her if she has another cardiac event she will . Upon reviewing notes from specialists at , cardiology note states patient will wear teletypesetter monitor and return in 4 weeks to discuss r esults and delivery plans and monitoring. Patient states cardiology refuses to see her until she ispostpartum - although it appears she has an appointment on 10/24. Per note from nephrology at , limited options for treatment other than continued repletion. Informed patient our office will reach out to [facility] at to determine if there is an issue in scheduling her there and we will call her back. After our office talked to [facility], a nurse there states there is no issue with her scheduling and she is more than welcome to come back for appointments. Called patient back, informed her she is welcome to schedule a follow-up at [facility] and gave her their office number. documented in this encounter Plan of Treatment Upcoming Encounters Date Type Department Care Team (Late st Contact Info) Description 01/20/2025 3:30 PM EST Office Visit [facility] GASTROENTEROLOGY [address] [facility] [address] [place] [address] Robbin Escalante MD [address] [facility] [address] [place] [address] documented as of this encounter Visit Diagnoses Not on filedocumented in this encounter Additional Health Concerns Assessment Noted Time PHQ-2 Depression Total Score: 2 05/28/19 4:39 PM EDT documented as of this encounter Care Teams Boiler Maker Relationship Specialty Start Date End Date Norma Friedman APRN [address] [place] [address] [place] [address] PCP - General Family Medicine 05/14/24 documented as of this encounter
--- OUTSIDE RECORDS SUMMARY | 2024-10-25 07:09 | XMS_ITS | Encounter Summary ---
Author Organization [facility] Address [address] [place] [id number] Care Team Providers Care Supervisor Insulation Name Role Phone Ivyashlyn Valentinoseven JOLENE Primary Care Provider + [phone] Encounter Details Date Type Department Care Team (Late st Contact Info) Description 06/26/2024 Results Follow-Up [facility] OBGYN [address] [address] Koby [place] MD [address] [place] [address] Social History Tobacco Use Types Packs/Day Years Used Date Smoking Tobacco: Never Smokeless Tobacco: Never Alcohol Use Standard Drinks/Week Comments Never 0 (1 standard drink = 0.6 oz pur e alcohol) [facility] Utilities Answer Date Recorded In the past 12 months has [employer], gas, oil, or water [employer] threatened to shut off services in [...] hard at all 05/28/2024 [facility] [place] of Occupat ional Health - Occupational Stress [...] Visit [facility] GASTROENTEROLOGY [address] [address] Robbin Escalante MD [address] [address] documented as of this encounter Visit Diagnoses Not on filedocumented in this encounter Additional Health Concerns Assessment Noted Time PHQ-2 Depression Total Score: 2 05/28/19 25 4:39 PM EDT documented as of this encounter Care Teams Supervisor Insulation Relationship Specialty Start Date End Date Norma Friedman APRN [address] [place] [address] [place] [address] PCP - General Family Medicine 05/14/24 documented as of this encounter
--- OUTSIDE RECORDS SUMMARY | 2024-10-25 07:09 | XMS_ITS | Encounter Summary ---
Author Organization Healthcare Address [address] [place] [address] Care Team Providers Care Glass Science Engineer Name Role Phone Norma Friedman JOLENE Primary Care Provider +[phone]- [phone] Lizz Trinh RN Unavailable Unavailable Encounter Details Date Type Department Care Team (Late st Contact Info) Description 10/16/2024 Results Follow-Up [facility] [place] [facility] [address] [facility] [place] [address] Nneka Block MD [address] [place] [address] Social History Tobacco Use Types [...] more drinks on one occasion? Never 09/23/2024 [place] Depression Scale Answer Date Recorded [place] Depression Scale Total 0 09/23/2024 The thought [...] Behavior (Lifetime) No 4:00 PM EDT Tex aHrman RN documented as of this encounter Plan of Treatment Upcoming Encounters Date Type Department Care Team ([facility] st Contact Info) Description 10/31/2024 Hospital Encounter [facility] H Labor and Delivery [address] [place] [address] 11/14/2024 11:15 AM EDT Visit Medical Office Building Obstetrics and Gynecology [address] [facility], [address] [place] [address] Nneka Gipson MD [address] [place] [address] 12/25/2024 1:00 PM EST Office Visit [facility] Nephrology, Bone & Mineral Metabolism [address] [facility], [address] [place] [address] documented as of this encounter [...] as of this encounter Care Teams Glass Science Engineer Relationship Specialty Start Date End Date Norma Friedman APRN [address] [place] [address] PCP - General 09/23/24 Lizz Trinh, RN [facility] Registered Nurse Cardiology 09/26/24 documented as of this encounter
--- OUTSIDE RECORDS SUMMARY | 2024-10-25 07:09 | XMS_ITS | Encounter Summary ---
Author Organization Healthcare Address [address] [place] [address] Care Team Providers Care Integration Software Developer Name Role Phone Norma Friedman INFORMATION SCIENTIST Primary Care Provider +1- [phone] Lizz Trinh RN Unavailable Unavailable Encounter Details [...] more drinks on one occasion? Never 09/23/2024 [place] Depression Scale Answer Date Recorded [place] Depression Scale Total 0 09/23/2024 The thought [...] H Labor and Delivery [address] [place] [address] 11/14/2024 11:15 AM EDT Visit Medical Office Building Obstetrics and Gynecology [address] [facility] [address] [facility], [address] [place] [address] Nneka Gipson MD [address] [place] [address] 12/25/2024 1:00 PM EST Office Visit [facility] Nephrology, Bone & Mineral Metabolism [address] [facility] [address] [facility], [address] [place] [address] documented as of this encounter [...] documented as of this encounter Care Teams Integration Software Developer Relationship Specialty Start Date End Date Norma Friedman APRN [address] [place] [address] PCP - General 09/23/24 Lizz Trinh, RN [facility] Registered Nurse Cardiology 09/26/24 documented as of this encounter
--- OUTSIDE RECORDS SUMMARY | 2024-10-25 07:09 | XMS_ITS | Encounter Summary ---
Author Organization Healthcare Address [address] [place] [address] Care Team Providers Care Polysomnographer Name Role Phone Norma Friedman JOLENE Primary Care Provider +1- [phone] Lizz Trinh RN Unavailable Unavailable Encounter Details [...] more drinks on one occasion? Never 09/23/2024 [place] Depression Scale Answer Date Recorded [place] Depression Scale Total 0 09/23/2024 The thought [...] Encounter [facility] H Labor and Delivery [address] [place] [address] 11/14/2024 11:15 AM EDT Visit Medical Office Building Obstetrics and Gynecology [address] [facility], [address] [place] [address] Nneka Gipson MD [address] [place] [address] 12/25/2024 1:00 PM EST Office Visit [facility] Nephrology, Bone & Mineral Metabolism [address] [facility], [address] [place] [address] documented as of this encounter [...] documented as of this encounter Care Teams Polysomnographer Relationship Specialty Start Date End Date Norma Friedman APRN [address] [place] [address] PCP - General 09/23/24 Lizz Trinh, RN [facility] Registered Nurse Cardiology 09/26/24 documented as of this encounter
--- OUTSIDE RECORDS SUMMARY | 2024-10-25 07:10 | XMS_ITS | Encounter Summary ---
Author Organization Healthcare Address [address] [place] [address] Care Team Providers Care Supervisor Assembling Name Role Phone Norma Friedman APRN Primary Care Provider +1- [phone] Encounter Details Date Type Department Care Team [...] drinks on one occasion? Never 09/23/2024 [place] Depression Scale Answer Date Recorded [place] Depression Scale Total 0 09/23/2024 The thought [...] Encounter PAV H Labor and Delivery [address] [place] [address] 11/14/2024 11:15 AM EDT Visit Medical Office Building Obstetrics and Gynecology [address] [facility], [address] [place] [address] Nneka Gipson MD [address] [place] [address] 12/25/2024 1:00 PM EST Office Visit [facility] Nephrology, Bone & Mineral Metabolism [address] [facility], [address] [place] [address] documented as of this encounter Visit Diagnoses Not on filedocumented in this encounter Additional Health Concerns Assessment Noted Time A Body Mass Index follow-up plan has been documented for the patient 09/23/2024 8:28 PM EDT documented as of this encounter Care Teams Supervisor Assembling Relationship Specialty Start Date End Date Norma Friedman APRN [address] [place] [address] PCP - General 09/23/24 documented as of this encounter
--- OUTSIDE RECORDS SUMMARY | 2024-10-25 07:10 | XMS_ITS | Encounter Summary ---
[facility] Address [address] [place] [address] Care Team Providers Care Quality Assurance Advisor Name Role Phone Ivyashlyn Norma FERNÁNDEZ Primary Care Provider + [phone] Encounter Details Date Type Department Care Team (Late st Contact Info) Description 08/27/2024 Telephone [facility] OBGYN [address] [place] [address] Staci Jain MD [address] [facility] [address] [place] [address] Social History Tobacco Use Types Packs/Day Years Used Date Smoking Tobacco: Never Smokeless Tobacco: Never Alcohol Use Standard Drinks/Week Comments Never 0 (1 standard drink = 0.6 oz pur e alcohol) [facility] Utilities Answer Date Recorded In the past 12 months has [employer], [employer], oil, or water [employer] threatened to shut off services in your [...] hard at all 05/28/2024 [facility] [place] of Occupat ional Health - Occupational Stress [...] Visit [facility] GASTROENTEROLOGY [address] [address] Robbin Escalante MD [address] [address] documented as of this encounter Visit Diagnoses Diagnosis History of hypokalemia- Primary documented in this encounter Additional Health Concerns Assessment Noted Time PHQ-2 Depression Total Score: 2 05/28/19 25 4:39 PM EDT documented as of this encounter Care Teams Quality Assurance Advisor Relationship Specialty Start Date End Date Norma Friedman APRN [address] [place] [address] [place] [address] PCP - General Family Medicine 05/14/24 documented as of this encounter
--- OUTSIDE RECORDS SUMMARY | 2024-10-25 07:10 | XMS_ITS | Encounter Summary ---
[facility] [address] [place] [address] [place] [id number] Care Team Providers Care Biomedical Equipment Specialist Name Role Phone Ivyashlyn Norma FERNÁNDEZ Primary Care Provider + [phone] Encounter Details Date Type Department Care Team (Late st Contact Info) Description 09/02/[address] [facility] OBGYN [address] [address] Staci Jain MD [address] [place] [id number] Social History Tobacco Use Types Packs/Day Years Used Date Smoking Tobacco: Never Smokeless Tobacco: Never Alcohol Use Standard Drinks/Week Comments Never 0 (1 standard drink = 0.6 oz pur e alcohol) [facility] Utilities Answer Date Recorded In the past 12 months has [employer], gas, oil, or water [employer] threatened to shut off services in your [...] She just got d/c'd from [facility] 2 hours ago and they gave her a total 10 MLE of K+ and 3 units of Mag and 2 liters of LR. She has decided to transfer care to [facility] as it iscloser to her like 15 min away. She wants you (Dr. Jain) to know this has nothing to you but rather the nurses and commercial litigation paralegal doctor did not relay the labs to you in a faster fashion. She said you can call her if you want and she is not angry. Dr. Jain was notified. * Telephone Encounter - Frederick Gruber RN - 09/02/2024 3:10 PM EDT [employer] message sent to the pt regarding outpt infusion apt tomorrow at [place]. documented in this encounter Plan of Treatment Upcoming Encounters Date Type Department Care Team (Late st Contact Info) Description 01/20/2025 3:30 PM EST Office Visit [facility] GASTROENTEROLOGY [address] [place] [address] [place] [address] Robbin Escalante MD [address] [facility] [address] [place] [address] documented as of this encounter Visit Diagnoses Not on filedocumented in this encounter Additional Health Concerns Assessment Noted Time PHQ-2 Depression Total Score: 2 05/28/19 25 4:39 PM EDT documented as of this encounter Care Teams Biomedical Equipment Specialist Relationship Specialty Start Date End Date Norma Friedman APRN [address] [place] [address] [place] [address] PCP - General Family Medicine 05/14/24 documented as of this encounter
--- OUTSIDE RECORDS SUMMARY | 2024-10-25 07:10 | XMS_ITS | Encounter Summary ---
Author Organization Healthcare Address [address] [place] [address] Care Team Providers Care Suspect Artist Supervisor Name Role Phone Norma Friedman MARITIME ENGINEER Primary Care Provider +1- [phone] Lizz Trinh RN Unavailable Unavailable Encounter Details [...] more drinks on one occasion? Never 09/23/2024 [place] Depression Scale Answer Date Recorded [place] Depression Scale Total 0 09/23/2024 The thought [...] H Labor and Delivery [address] [place] [address] 11/14/2024 11:15 AM EDT Visit Medical Office Building Obstetrics and Gynecology [address] [facility], [address] [place] [address] Nneka Gipson MD [address] [place] [address] 12/25/2024 1:00 PM EST Office Visit [facility] Nephrology, Bone & Mineral Metabolism [address] [facility], [address] [place] [address] documented as of this encounter Visit Diagnoses Not on filedocumented in this encounter Additional Health Concerns Assessment Noted Time A fall risk assessment has been complete d for the patient 09/26/2024 8:15 AM EDT A Body Mass Index follow-up plan has been documented for the patient 09/27/2024 10:22 AM EDT documented as of this encounter Care Teams Suspect Artist Supervisor Relationship Specialty Start Date End Date Norma Friedman APRN [address] [place] [address] PCP - General 09/23/24 Lizz Trinh, RN [facility] Registered Nurse Cardiology 09/26/24 documented as of this encounter
--- OUTSIDE RECORDS SUMMARY | 2024-10-25 07:10 | XMS_ITS ---
Author Organization [facility] Address [address] [place] [address] Care Team Providers Care Gas Combustion Engineer Name Role Phone Norma Friedman APRN Primary Care Provider [phone] Motherhood Connection Status:Engaged (Active) Start date:05/23/2024 Enrollment date:05/23/2024 Case Team Name Relationship Phone Bindu Castellon RN Nurse Navigator Christy Zabala RN(Responsible Staff) Nurse Navig ator Continued Care and Services Coordination
--- OUTSIDE RECORDS SUMMARY | 2024-10-25 07:10 | XMS_ITS | Encounter Summary ---
Author Organization Healthcare Address [address] [place] [address] Care Team Providers Care Angle Shearer Name Role Phone Unavailable Primary Care Provider Unavailabl e Reason for Referral * Consultation (Routine) - Closed Specialty Diagnoses / Procedures Referred By Contac t Referred To Contact Nephrology Diagnoses Hypokalemia Liborio Weller MD [address] [facility] [address] [place] [address] Phone: tel: fax: [facility] Nephrology, Bone & Mineral Metabolism [address] [facility], [address] [place] [address] Phone: tel: fax: Referral ID Status Reason Start Date Expiration Date V isits Requested Visits Authorized [id number] Closed Specialty Services Required 09/14/2024 03/16/2026 1 1 Scheduling Instructions Severe hypokalemia in the setting of Encounter Details Date Type Department Care Team (Late st Contact Info) Description 09/14/2024 Telephone [facility] Obstetrics & Gynecology [address] [place] [address] Susi Wren MD [address] [place] [address] Social History Tobacco Use Types [...] had an outpatient workup with Nephrology at [facility] that was negative, she was [...] Encounter [facility] Labor and Delivery [address] [place] [address] 11/14/2024 11:15 AM EDT Visit Medical Office Building Obstetrics and Gynecology [address] [facility], [address] [place] [address] Nneka Gipson MD [address] [place] [address] 12/25/2024 1:00 PM EST Office Visit [facility] Nephrology, Bone & Mineral Metabolism [address] [facility], [address] [place] [address] Scheduled Referrals Name Type Priority Associated Diagnoses Order Schedule Ambulatory referral to Nephrology Clinic Outpatient Referral Routine Hypokalemia 1 Occurrences starting 09/14/2024 until 03/18/2026 documented as of this encounter Visit Diagnoses Diagnosis Hypokalemia- Primary Hypopotassemia documented in this encounter
--- OUTSIDE RECORDS SUMMARY | 2024-10-25 07:10 | XMS_ITS | Clinical Summary ---
Author Organization [facility] ([place], [place], [place], [place]) Address [address] [place] [address] Care Team Providers Care Cops Name Role Phone Unavailable Primary Care Provider [...]
--- OUTSIDE RECORDS SUMMARY | 2024-10-25 07:10 | XMS_ITS | Encounter Summary ---
[facility] Organization [facility] Address [address] [place] [address] Care Team Providers Care Loom Technician Name Role Phone Norma Friedman APRN Primary Care Provider + [phone] Encounter Details Date Type Department Care Team (Latest Contact Info) Description 08/29/2024 Travel Social History Tobacco Use Types Packs/Day Years Used Date Smoking Tobacco: Never Smokeless Tobacco: Never Alcohol Use Standard Drinks/Week Comments Never 0 (1 standard drink = 0.6 oz pur e alcohol) [facility] Utilities Answer Date Recorded In the past 12 months has [employer] electric, gas, oil, or water company threatened [...] and heating? Not hard at all 05/28/2024 [facility] [place] of Occupat ional Health - Occupational Stress [...] Visit [facility] GASTROENTEROLOGY [address] [facility] [address] [place] [id number] Robbin Escalante MD [address] [facility] [address] [place] [address] documented as of this encounter Visit Diagnoses Not on filedocumented in this encounter Additional Health Concerns Assessment Noted Time PHQ-2 Depression Total Score: 2 05/28/19 25 4:39 PM EDT documented as of this encounter Care Teams Loom Technician Relationship Specialty Start Date End Date Norma Friedman APRN [address] [place] [address] [place]FA[place] APPIAH [address] PCP - General Family Medicine 05/14/24 documented as of this encounter
--- OUTSIDE RECORDS SUMMARY | 2024-10-25 07:10 | XMS_ITS | Clinical Summary ---
Author Organization [facility] Address [address] [place] [address] Care Team Providers Care Plug Shaper Hand Name Role Phone Norma Friedman APRN Primary Care Provider + [phone] Allergies Active Allergy Reactions Criticality Noted Date [...] Department Care Team Description 5 Telephone [facility]ERNAL MEDICINE [address] [facility] [place] [address] [place] [address] Lyudmila Germain, delivery crew member Only 5 Documentation [facility] LABOR DELIVERY [address] [place] [address] Christy Zabala RN 5 Results Follow-Up [facility] OBGYN [address] [place] [address] Rob Wharton MD 5 Telephone [facility] [address] [facility] [address] [place] [address] Rob Wharton MD 5 10:00 AM EDT Routine [facility] [place] [address] Rob Wharton MD [place]: 26w4d 5 Travel 5 Telephone [facility] OBGYN [address] [facility] [address] [place] [address] Rob Wharton MD 5 Telephone [facility] [place] [address] Rob Wharton MD 5 1:44 PM EDT Anesthesia Event [facility] ENDO SUITES [address] [place] [address] Akash Anguiano MD Lanham, John, CRNA 5 1:33 PM EDT - 5 2:05 PM EDT Surgery [facility] ENDO SUITES [address] [facility] [place] [address] Blu Alvarado MD ESOPHAGOGASTRODUODENOSCOPY [81050 (CPT )] 5 1:59 PM EDT - 5 4:28 PM EDT Hospital Encounter [facility] ANTEPARTUM [address] [place] [address] Rob Wharton MD Brunner, Mark I, MD Dysphagia, unspecified type (Primary Dx) Discharge Disposition: Home or Self Care 5 10:15 AM EDT Routine [facility] OBGYN [address] [place] [address] Jacey Mathews, MOLECULAR GENETICIST GA: 25w1d 5 Telephone [facility] OBGYN [address] [place] [address] Jacey Mathews, MOLECULAR GENETICIST 5 Travel 5 Patient Outreach [facility] LABOR DELIVERY [address] [place] [address] Christy Zabala, RN from Last 3 Months Family History Medical [...] Recorded In the past 12 months has [employer], gas, oil, or water [employer] threatened to shut off services in your [...] hard at all 05/28/2024 [facility] [place] of Occupat ional Health - Occupational Stress [...] GED or equivalent No 05/28/2024 Preferred Language Jordanian 05/28/2024 PHQ-2 Answer Date Recorded Patient Health [...] Office Visit [facility] GASTROENTEROLOGY [address] [address] Robbin Escalante MD [address] [address] Health Maintenance Due Date Last Done Comments Annual Gynecologic Pelvic and Breast Exam 1991 PAP SMEAR 2012 ANNUAL PHYSICAL 05/21/2024 INFLUENZA VACCINE 09/06/2024 03/30/2016, 03/28/2012 RSV Vaccine - Adults (1 - Risk 1-dose series) 10/07/2024 TDAP/TD VACCINES (7 - Td or Tdap) [...] Routine 08/19/2024 4:17 PM EDT [facility] Routine 08/19/2024 3:25 [...] NONSTRESS TEST Routine 08/19/2024 2:33 PM EDT HEPATITIS C ANTIBODY Routine 04/12/2024 [...] 08/30/2024 6:09 AM EDT Performed at: [address] [id number] Harvesting Supervisor: Kevin Harman MD, Phone: [phone] Patient Fasting: N Rob Wharton MD LAB BLOOD ORDERABLES Final Result [facility] (AMBULATORY) [address] [place] [address], [place] [phone] [facility] [address] [place] [address], [place] [phone] * (ABNORMAL) Comprehensive Metabolic Panel (08/29/2024 11:05 AM EDT) Only the most recent of2 resultswithin the time period is included. Glucose 72 65 - 99 mg/dL [facility] [...] Blood 08/29/2024 11:0 5 AM EDT 08/29/2024 [facility] (AMBULATORY) - 08/30/2024 6:09 AM EDT Performed at: [address] [place] [id number] Harvesting Supervisor: Kevin Harman MD, Phone: [phone] Patient Fasting: N Rob Wharton MD LAB BLOOD ORDERABLES Final Result Performing Organization Address City/[facility] Co de Phone Number [facility] (AMBULATORY) [address] [place] [address], [place] [phone] [facility] [address] [place] [address], [place] [phone] * (ABNORMAL) POC Urinalysis Dipstick (08/29/2024 10:13 AM EDT) Pathologist [facility] Glucose, UA Negative Negative mg/dL [facility] Protein, POC Trace(A) Negative mg/dL [facility] Urine 08/29/2024 10:1 3 AM EDT Rob Wharton MD POINT OF CARE TEST OR DERABLES Final Result Performing Organization Address City/[facility] Co de Phone Number [facility]
[address] [place] [address], [place] [phone] * BH AN ETT AIRWAY (08/20/2024 2:02 [...] bilaterally with symmetric chest rise and fall [facility] ANESTHESIA ORDERABLES Final Res ult * Tissue Pathology Exam (08/20/2024 1:55 PM EDT) Case Report Surgical Pathology Report Case: [id number] Authorizing Provider: Blu Alvarado MD Collected: 08/20/2024 01:55 PM Ordering Location: [facility] Received: 08/20/2024 02:14 PM ENDO SUITES Pathologist: Khalida Rhoades DO Specimen: Gastric, Antrum, antrum bx for path 08/22/2024 9:18 AM EDT [facility] Clinical Information Dysphagia, unspecified type 08/22/2024 9:18 AM EDT [facility] Final Diagnosis Stomach, antrum, biopsy: 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 pylori is negative (no organisms are identified) Negative for intestinal metaplasia, dysplasia, or malignancy 08/22/2024 9:18 AM EDT [facility] LABOR[facility] at 0918 EDT Gross Description 1. Gastric, Antrum. Received in formalin labeled antrum biopsy is a 0.4 x 0.2 x 0.2 cm pink-see soft tissue fragment submitted entirely in a single cassette. HDM 08/22/2024 9:18 AM EDT [facility] Microscopic Description The slides are reviewed and demonstrate histopathologic features supporting the above rendered diagnosis. 08/22/2024 9:18 AM EDT [facility] Tissue Pyloric antrum structure / Unknown 08/20/2024 1:55 PM EDT 08/20/2024 2:14 PM EDT Blu Alvarado MD PATHOLOGY/CYTOLOGY ORDERABLES Final Result [facility]
[address] [place] [address], * Upper GI Endoscopy (08/20/2024 1:09 PM EDT) Blu Alvarado MD INTERFACE NEEDS Final Result * (ABNORMAL) Basic Metabolic Panel (08/20/2024 5:25 AM EDT) Glucose 84 65 - 99 mg/dL 08/20/2024 6:13 AM EDT [facility] BUN 2.3(L) 6.0 - 20.0 mg/dL 08/20/2024 6:13 AM EDT [facility] Creatinine 0.51(L) 0.57 - 1.00 mg/dL 08/20/2024 6:13 AM EDT [facility] Sodium 139 136 - 145 mmol/L 08/20/2024 6:13 AM EDT [facility] Potassium 3.5 3.5 - 5.2 mmol/L 08/20/2024 6:13 AM EDT [facility] Chloride 109(H) 98 - 107 mmol/L 08/20/2024 6:13 AM EDT [facility] CO2 23.5 22.0 - 29.0 mmol/L 08/20/2024 6:13 AM EDT [facility] Calcium 7.8(L) 8.6 - 10.5 mg/dL 08/20/2024 6:13 AM EDT [facility] BUN/Creatinine Ratio 4.5(L) 7.0 - 25.0 08/20/2024 6:13 AM EDT [facility] Anion Gap 6.5 5.0 - 15.0 mmol/L 08/20/2024 6:13 AM EDT [facility] eGFR 126.6 >60.0 mL/min/1.7 3 08/20/2024 6:13 AM EDT [facility] Blood Venipuncture / Unknown 08/20/2024 5:25 AM EDT 08/20/2024 5:46 AM EDT Narrative [facility] - 08/20/2024 6:13 AM [...] MD LAB BLOOD ORDERABLES Final Resu lt [facility]OR[facility]
[address] [place] [address], * (ABNORMAL) Potassium (08/19/2024 8:53 PM EDT) Potassium 2.7(L) 3.5 - 5.2 mmol/L 08/19/2024 9:20 PM EDT [facility] Blood Venipuncture / Unknown 08/19/2024 8:53 PM EDT 08/19/2024 9:04 PM EDT Kt Fan DO LAB BLOOD ORDERABLES Final Result Performing Organization Address City/[facility]/ZIP Co de Phone Number [facility]OR[facility]
[address] [place] [address], * ABO RH Specimen Verification (08/19/2024 4:34 PM EDT) ABO Type O 08/19/2024 7:39 PM EDT [facility] BB LABORATORY RH type Positive 08/19/2024 7:39 PM EDT [facility] BB LABORATORY Blood Venipuncture / Unknown 08/19/2024 4:34 PM EDT 08/19/2024 4:53 PM EDT Rob Wharton MD BLOOD BANK TEST ORDER FRANCO Final Result [facility] BB LABORATORY
[address] [place] [address], * [facility] (08/19/2024 3:25 PM EDT) Anatomical Region Laterality Modality Ultrasound 08/19/2024 3:09 PM EDT Narrative 08/19/2024 4:54 PM EDT PAT NAME: CAROLE GIRARD MED REC#: [id number] DA: [id number] PAT GEND: F PAT TYPE: E EXAM TRAVIS: [id number] REF PHYS ROB WHARTON Comparison Studies The [...] EFW (oz) 9 oz EFW by: Hadlock ([id number]) Extended Cav. septi pel. tr 4.7 mm Switch Operators Supervisor 3.8 mm CM 7.5 mm 84% [...] Heart / Thorax 3-vessel view: Appears normal 0-ubgelc-umvhyaa view: Appears normal Stomach: Appears normal Kidneys: [...] in 4wks for growth. Coding ======= Description: 41275-17 Follow Up Photoengraving Retoucher: RT Annetta Hartmann , [facility] Physician: Jo Chappell MD Electronically signed by: Jo Chappell MD at: 16:54 Procedure Note Jo Chappell MD - 08/19/2024 PAT NAME: CAROLE GIRARD MED REC#: [id number] DA: 1990 PAT GEND: F PAT TYPE: E EXAM TRAVIS: [id number] REF PHYS ROB WHARTON Comparison Studies The findings of this study are compared to the prior ultrasound studydated 07/22/24 Patient Status Inpatient Indication ======== History of c/s x1. History of . Vaginal bleeding. Maternal Assessment Mvodcm140 cm Height (ft)5 ft Height (in)4 in Nrwcqb33 kg Weight (lb)158 lb BMI27.31 kg/m Method ======= Transabdominal ultrasound examination. View: Limited by patient bodyhabitus ========= Love . Number of fetuses: 1 Dating ====== Method of dating:based on stated DUSTY GA by prior qazfmmarjf43 w + 1 d DUSTY by prior [...] Hadlock Femur44.9 mm 24w 6d 27% Hadlock Coltmxa04.3 mm 25w 3d 50% Jamal HC / AC1.16 ELU128 g 24w 2d 16% Hadlock EFW (lb)1 lb EFW (oz)9 oz EFW by:Hadlock ([id number]) Extended Cav. septi pel. tr4.7 mm Vp3.8 mm CM7.5 mm 84% Nicolaides Head / Face / Neck Cephalic index0.71 <1% Nicolaides Extremities / Bony Struc FL / BPD0.78 FL / HC0.20 FL / AC0.23 Other Structures KXT796 bpm General Evaluation Cardiac activity present. FHR [...] normal Heart / Thorax 3-vessel view:Appears normal 9-xfnzya-tuiutgw view:Appears normal Stomach:Appears normal Kidneys:Appears normal Bladder:Appears normal Gender:female Wants to know gender:yes Maternal Structures Uterus / Cervix Cervix:Visualized Approach:Transabdominal Cervical cymhta62.9 mm Doppler Arterial Umbilical A PI1.01 32% [...] office in 4wks for growth. Coding ======= Description:51873-45 Follow Up Photoengraving Retoucher: Alison Verduzco RT R , [place] Physician: Jo Chappell MD Electronically signed by: Jo Chappell MD at: 16:54 Kt Fan DO IMG US ORDERABLES Final Res ult * Urinalysis, Microscopic Only - Urine, Clean Catch (08/19/2024 3:02 PM EDT) RBC, UA 0-2 None Seen, 0-2 /HPF 08/19/2024 3:33 PM EDT [facility] WBC, UA 0-2 None Seen, 0-2 /HPF 08/19/2024 3:33 PM EDT [facility] Bacteria, UA None Seen None Seen /HPF 08/19/2024 3:33 PM EDT [facility] Squamous Epithelial Cells, UA 0-2 None Seen, 0-2 /HPF 08/19/2024 3:33 PM EDT [facility] Hyaline Casts, UA None Seen None Seen /LPF 08/19/2024 3:33 PM EDT [facility] Methodology Automated Microscopy 08/19/2024 3:33 PM EDT [facility] Urine Urine specimen obtained by clean catch procedure / Unknown Collection / Unknown 08/19/2024 3:02 PM EDT 08/19/2024 3:13 PM EDT Kt Fan DO URINE ORDERABLES Final Resu lt [facility]
[address] [place] [address], [place] [phone] * (ABNORMAL) Urinalysis With Microscopic If Indicated (No Culture) - Urine, Clean Catch (08/19/2024 3:02 PM EDT) Color, UA Yellow Yellow, Straw 08/19/2024 3:33 PM EDT [facility] Appearance, UA Clear Clear 08/19/2024 3:33 PM EDT [facility] pH, UA >=9.0(H) 5.0 - 8.0 08/19/2024 3:33 PM EDT [facility] Specific [place], UA 1.018 1.005 - 1.030 08/19/2024 3:33 PM EDT [facility] Glucose, UA Negative Negative 08/19/2024 3:33 PM EDT [facility] Ketones, UA 15 mg/dL (1+)(A) Negative 08/19/2024 3:33 PM EDT [facility] Bilirubin, UA Negative Negative 08/19/2024 3:33 PM EDT [facility] Blood, UA Negative Negative 08/19/2024 3:33 PM EDT [facility] Protein, UA 30 mg/dL (1+)(A) Negative 08/19/2024 3:33 PM EDT [facility] Leuk Esterase, UA Negative Negative 08/19/2024 3:33 PM EDT [facility] Nitrite, UA Negative Negative 08/19/2024 3:33 PM EDT [facility] Urobilinogen, UA 1.0 E.U./dL 0.2 - 1.0 E.U./dL 08/19/2024 3:33 PM EDT [facility] Urine Urine specimen obtained by clean catch procedure / Unknown Collection / Unknown 08/19/2024 3:02 PM EDT 08/19/2024 3:13 PM EDT us Kt Fan DO URINE ORDERABLES Final Resu lt [facility]
[address] [place] [address], * (ABNORMAL) CBC Auto Differential (08/19/2024 3:02 PM EDT) WBC 9.19 3.40 - 10.80 10*3/mm3 08/19/2024 3:23 PM EDT [facility] RBC 3.58(L) 3.77 - 5.28 10*6/mm3 08/19/2024 3:23 PM EDT [facility] Hemoglobin 10.5(L) 12.0 - 15.9 g/dL 08/19/2024 3:23 PM EDT [facility] Hematocrit 31.4(L) 34.0 - 46.6 % 08/19/2024 3:23 PM EDT [facility] MCV 87.7 79.0 - 97.0 fL 08/19/2024 3:23 PM EDT [facility] MCH 29.3 26.6 - 33.0 pg 08/19/2024 3:23 PM EDT [facility] MCHC 33.4 31.5 - 35.7 g/dL 08/19/2024 3:23 PM EDT [facility] RDW 13.4 12.3 - 15.4 % 08/19/2024 3:[facility] RDW-SD 42.4 37.0 - 54.0 fl 08/19/2024 3:23 PM EDT [facility] MPV 12.0 6.0 - 12.0 fL 08/19/2024 3:23 PM EDT [facility] Platelets 241 140 - 450 10*3/mm3 08/19/2024 3:23 PM EDT [facility] Neutrophil % 66.8 42.7 - 76.0 % 08/19/2024 3:23 PM EDT [facility] Lymphocyte % 24.4 19.6 - 45.3 % 08/19/2024 3:23 PM EDT [facility] Monocyte % 7.6 5.0 - 12.0 % 08/19/2024 3:23 PM EDT [facility] Eosinophil % 0.7 0.3 - 6.2 % 08/19/2024 3:23 PM EDT [facility] Basophil % 0.2 0.0 - 1.5 % 08/19/2024 3:23 PM EDT [facility] Immature Grans % 0.3 0.0 - 0.5 % 08/19/2024 3:23 PM EDT [facility] Neutrophils, Absolute 6.14 1.70 - 7.00 10*3/mm3 08/19/2024 3:23 PM EDT [facility] Lymphocytes, Absolute 2.24 0.70 - 3.10 10*3/mm3 08/19/2024 3:23 PM EDT [facility] Monocytes, Absolute 0.70 0.10 - 0.90 10*3/mm3 08/19/2024 3:23 PM EDT [facility] Eosinophils, Absolute 0.06 0.00 - 0.40 10*3/mm3 08/19/2024 3:23 PM EDT [facility] Basophils, Absolute 0.02 0.00 - 0.20 10*3/mm3 08/19/2024 3:23 PM EDT [facility] Immature Grans, Absolute 0.03 0.00 - 0.05 10*3/mm3 08/19/2024 3:23 PM EDT [facility] nRBC 0.0 0.0 - 0.2 /100 WBC 08/19/2024 3:23 PM EDT [facility] Blood Line / Unknown 08/19/2024 3: 02 PM EDT 08/19/2024 3:10 PM EDT Kt Fan DO LAB BLOOD ORDERABLES Final Result [facility]
[address] [place] [address], * Protein / Creatinine Ratio, Urine - Urine, Clean Catch (08/19/2024 3:02 PM EDT) Protein/Creati nine Ratio, Urine 126.1 0.0 - 200.0 mg/G Crea 08/20/2024 12:47 AM EDT [facility] Creatinine, Urine 148.3 mg/dL 08/20/2024 12:47 AM EDT [facility] Total Protein, Urine 18.7 mg/dL 08/20/2024 12:47 AM EDT [facility] Urine Urine specimen obtained by clean catch procedure / Unknown Collection / Unknown 08/19/2024 3:02 PM EDT 08/19/2024 4:26 PM EDT us Kt Fan DO URINE ORDERABLES Final Resu lt [facility]
[address] [place] [address], * Type & Screen (08/19/2024 3:02 PM EDT) ABO Type O 08/19/2024 3:51 PM EDT [facility] RH type Positive 08/19/2024 3:51 PM EDT [facility] Antibody Screen Negative 08/19/2024 3:51 PM EDT [facility] T&S Expiration Date 08/22/2024 11:59:59 PM 08/19/2024 3:51 PM EDT [facility] Blood Line / Unknown 08/19/2024 3: 02 PM EDT 08/19/2024 3:15 PM EDT us Kt Fan DO BLOOD BANK TEST ORDERABLES Edited Result - Final [facility]
[address] [place] [address], [place] [phone] * (ABNORMAL) Magnesium (08/19/2024 3:02 PM EDT) Magnesium 1.5(L) 1.6 - 2.6 mg/dL 08/19/2024 5:12 PM EDT [facility] Blood Line / Unknown 08/19/2024 3: 02 PM EDT 08/19/2024 3:10 PM EDT Kt Fan DO LAB BLOOD ORDERABLES Final Result Performing Organization Address City/[facility]/ZIP Co de Phone Number [facility]
[address] [place] [address], * Lipase (08/19/2024 3:02 PM EDT) Lipase 13 13 - 60 U/L 08/19/2024 3:36 PM EDT [facility] Blood Line / Unknown 08/19/2024 3: 02 PM EDT 08/19/2024 3:10 PM EDT Kt Fan DO LAB BLOOD ORDERABLES Final Result Performing Organization Address [facility] Co de Phone Number [facility]
[address] [place] [address], * Amylase (08/19/2024 3:02 PM EDT) Amylase 73 28 - 100 U/L 08/19/2024 3:36 PM EDT [facility] Blood Line / Unknown 08/19/2024 3: 02 PM EDT 08/19/2024 3:10 PM EDT Kt Fan DO LAB BLOOD ORDERABLES Final Result Performing Organization Address City/[facility]/ZIP Co de Phone Number [facility]
[address] [place] [address], [place] [phone] * Hepatitis C Antibody (04/12/2024) Hep C Virus Ab negative Blood us Historical Provider LAB BLOOD ORDERABLES Lena l Result from Last 3 Months or Most Recently Relevant to Health Maintenance Insurance [facility] Care Teams Plug Shaper Hand Relationship Specialty Start Date End Date Norma Friedman APRN [address] [place] G3 B[place]FA[place] [id number] PCP - General Family Medicine 05/14/24
--- OUTSIDE RECORDS SUMMARY | 2024-10-25 07:10 | XMS_ITS | Encounter Summary ---
Author Organization Healthcare Address [address] [place] [address] Care Team Providers Care Web Art Director Name Role Phone Norma Friedman APRN Primary Care Provider +1- [phone] Encounter Details Date Type Department Care Team [...] more drinks on one occasion? Never 09/23/2024 [place] Depression Scale Answer Date Recorded [place] Depression Scale Total 0 09/23/2024 The thought [...] [facility] H Labor and Delivery [address] [place] [address] 11/14/2024 11:15 AM EDT Visit Medical Office Building Obstetrics and Gynecology [address] [facility] [address], [address] [place] [address] Nneka Gipson MD [address] [place] [address] 12/25/2024 1:00 PM EST Office Visit Professional [facility] Nephrology, Bone & Mineral Metabolism [address] [facility] [address], [address] [place] [address] documented as of this encounter Visit Diagnoses Not on filedocumented in this encounter Additional Health Concerns Assessment Noted Time A fall risk assessment has been complete d for the patient 09/25/2024 3:05 PM EDT A Body Mass Index follow-up plan has been documented for the patient 10/05/2024 8:54 PM EDT documented as of this encounter Care Teams Web Art Director Relationship Specialty Start Date End Date Norma Friedman APRN [address] [place] [address] PCP - General 09/23/24 documented as of this encounter
--- OUTSIDE RECORDS SUMMARY | 2024-10-25 07:10 | XMS_ITS ---
Author Organization [facility] Address [address] [place] [address] Care Team Providers Care Foot Tender Name Role Phone Unavailable Primary Care Provider Unavailabl e Transplant Episode Kidney Potential Donor [facility] ([place], [place]) - [facility] Referred on 05/03/2022 Marked as Deferred on 05/04/2022 Reason: Other Kidney CoordinatorNadine Augustin R.N. Phone: N/A Fax: N/A Email: N/A Care Team Name Role Phone Fax Email Nadine Augustin R.N. Kidney Coordinator N/A N/A N/A Events Pre-Donation Referred: 05/03/2022
--- OUTSIDE RECORDS SUMMARY | 2024-10-25 07:10 | XMS_ITS | Encounter Summary ---
Author Organization [employer] ([place], [place], [place], [place]) Address [address] [place] [address] Care Team Providers Care Juvenile Probation Officer Name Role Phone Unavailable Primary Care Provider Unavailabl e Encounter Details Date Type Department Care Team (Late st Contact Info) Description 07/17/2019 Transcribed Document [facility] [address] [place] [address] ProviderEleno MD [address] [place], [place] [address] Social History Tobacco Use Types Packs/Day Years [...] On: 07/17/2019 19:17 EDT by KARLENE MCKINLEY patient case coordinator Process Patient Disposition : AMA/Elope/LWBS KARLENE MCKINLEY [...]
--- OUTSIDE RECORDS SUMMARY | 2024-10-25 07:10 | XMS_ITS | Encounter Summary ---
[facility] Organization [facility] Address [address] [place] [id number] Care Team Providers Care Orchard Sprayer Name Role Phone IvyKade goldbergjoseseven JOLENE Primary Care Provider + [phone] Encounter Details Date Type Department Care Team (Late st Contact Info) Description 09/03/2024 Results Follow-Up [facility] OBGYN [address] [place] [address] Staci Jain MD [address] [facility] [address] [place] [address] Social History Tobacco Use Types Packs/Day Years Used Date Smoking Tobacco: Never Smokeless Tobacco: Never Alcohol Use Standard Drinks/Week Comments Never 0 (1 standard drink = 0.6 oz pur e alcohol) [facility] Utilities Answer Date Recorded In the past 12 months has [employer], gas, oil, or water [employer] threatened to shut off services in your [...] Office Visit [facility] GASTROENTEROLOGY [address] [address] Robbin Escalante MD [address] [address] documented as of this encounter Visit Diagnoses Not on filedocumented in this encounter Additional Health Concerns Assessment Noted Time PHQ-2 Depression Total Score: 2 05/28/19 4:39 PM EDT documented as of this encounter Care Teams Orchard Sprayer Relationship Specialty Start Date End Date Norma Friedman APRN [address] [place] [address] RAFAELA APPIAH [address] PCP - General Family Medicine 05/14/24 documented as of this encounter
--- OUTSIDE RECORDS SUMMARY | 2024-10-25 07:10 | XMS_ITS | Encounter Summary ---
Author Organization [facility] Address [address] [place] [address] Care Team Providers Care Portfolio Architect Name Role Phone Elder Kadedev Coy APRN Primary Care Provider +1- [phone] Lizz Trinh RN Unavailable Unavailable Reason for Referral * Consultation (Routine) - Authorized Specialty Diagnoses / Procedures Referred By Tarik pedersen Referred To Contact Nephrology Diagnoses History of proteinuria syndrome care, subsequent , second trimester Staci Jain MD [address] [address] Phone: tel: fax: [facility] Nephrology, Bone & Mineral Metabolism [address] [facility], [address] [place] [address] Phone: tel: fax: Referral ID Status Reason Start Date Expiration Date Visits Requested Visits Authorized [id number] Authorized Specialty Services Required 07/22/2024 01/21/2026 1 1 Encounter Details Date Type Department Care Team (Late st Contact Info) Description 07/22/2024 Community Orders Community Practice [address] [place] [address] Staci Jain MD [address] [place] [address] History of proteinuria syndrome (Primary Dx); care, [...] Encounter [facility] H Labor and Delivery [address] [place] [address] 11/14/2024 11:15 AM EDT Visit Medical Office Building Obstetrics and Gynecology [address] [facility], [address] [place] [address] Nneka Gipson MD [address] [place] [address] 12/25/2024 1:00 PM EST Office Visit [facility] Nephrology, Bone & Mineral Metabolism [address] [facility], [address] [place] [address] Scheduled Referrals Name Type Priority [...] documented as of this encounter Care Teams Portfolio Architect Relationship Specialty Start Date End Date Norma Friedman APRN [address] [place] [address] PCP - General 09/23/24 Lizz Trinh, RN [facility] Registered Nurse Cardiology 09/26/24 documented as of this encounter
--- OUTSIDE RECORDS SUMMARY | 2024-10-25 07:10 | XMS_ITS | Encounter Summary ---
[facility] [address] [place] [id number] Care Team Providers Care Steel Finisher Name Role Phone Ivyashlyn Norma FERNÁNDEZ Primary Care Provider + [phone] Encounter Details Date Type Department Care Team (Late st Contact Info) Description 08/28/2024 Telephone [facility] OBGYN [address] [address] Staci Jain MD [address] [place] [id number] Social History Tobacco Use Types Packs/Day Years Used Date Smoking Tobacco: Never Smokeless Tobacco: Never Alcohol Use Standard Drinks/Week Comments Never 0 (1 standard drink = 0.6 oz pur e alcohol) [facility] Utilities Answer Date Recorded In the past 12 months has [employer], gas, oil, or water [employer] threatened to shut off services in your [...] and heating? Not hard at all 05/28/2024 [facility] - [facility] [...] sit with a family member admitted to [facility] today and does not know if she can make it back for labs (BMP). She does have an appt in [facility] at 10 am tomorrow. Advisedthat it would be best to come to our lab if possible. She could also come in early tomorrow and have lab drawn stat so results will not be delayed further. She VU * Telephone Encounter - Sejal Esocbar APRN - 08/28/2024 10:02 AM EDT [facility] * Telephone Encounter - Nan Anderson RegSched Rep - 08/28/2024 9:31 AM EDT Patient states she was supposed to come into [place] office today to have labs drawn however sheis currently hung up at [facility] is wondering if she could just have labs drawn there? documented in this encounter Plan of Treatment Upcoming Encounters Date Type Department Care Team (Late st Contact Info) Description 01/20/2025 3:30 PM EST Office Visit [facility] GASTROENTEROLOGY [address] [facility] [address] [place] [address] Robbin Escalante MD [address] [facility] [address] [place] [address] documented as of this encounter Visit Diagnoses Not on filedocumented in this encounter Additional Health Concerns Assessment Noted Time PHQ-2 Depression Total Score: 2 05/28/19 25 4:39 PM EDT documented as of this encounter Care Teams Steel Finisher Relationship Specialty Start Date End Date Norma Friedman APRN [address] [place] [address] RAFA[place] APPIAH [address] PCP - General Family Medicine 05/14/24 documented as of this encounter
--- OUTSIDE RECORDS SUMMARY | 2024-10-25 07:10 | XMS_ITS | Referral Summary ---
Author Organization [employer] ([place], [place], [place], [place]) Address [address] [place] [address] Care Team Providers Care Lunch Counter Manager Name Role Phone Unavailable Primary Care [...]
--- OUTSIDE RECORDS SUMMARY | 2024-10-25 07:11 | XMS_ITS | Encounter Summary ---
Author Organization Healthcare Address [address] [place] [address] Care Team Providers Care Medical Scientist Name Role Phone Norma Friedman JOLENE Primary Care Provider +1- [phone] Lizz Trinh RN Unavailable Unavailable Encounter Details Date Type Department Care Team ([facility] Contact Info) Description 10/24/2024 Orders Only Medical Office Building Obstetrics and Gynecology [address] [facility], [address] [place] [address] Kaitlyn Richter MD [address] [place] [address] Social History Tobacco Use Types Packs/Day Years [...] more drinks on one occasion? Never 09/23/2024 [place] Depression Scale Answer Date Recorded [place] Depression Scale Total 0 09/23/2024 The thought [...] as of this encounter Functional Status * Over the past 2 weeks, how often have you been bothered by any of the following problems? Question Answer Date of Assessment Author Little interest or pleasure in doing things Not at all 10/24/2024 7:52 AM EDNadine Cintron Feeling down, depressed, or hopeless Not at all 10/07 7:52 AM EDNadine Cintron Patient Health Questionnaire-2 Score 0 10/07 7:52 AM Nadine Mayo * Question Answer Date of Assessment Author Trouble falling or staying a sleep, or sleeping too much Not at all 10/24/2024 7:52 AM EDNadine Cintron Feeling tired or having little energy Not at all 7:52 AM Nadine Mayo Poor appetite or overeating Not at all 10/24/2024 7: 52 AM EDNadine Cintron Feeling bad about yourself - or that [...] difficult at all 10/24/2024 7:52 AM EDT Shu tNadine documented as of this encounter Plan of Treatment Upcoming Encounters Date Type Department Care Team (Late st Contact Info) Description 10/31/2024 Hospital Encounter [facility] Labor and Delivery [address] [place] [address] 11/14/2024 11:15 AM EDT Visit Medical Office Building Obstetrics and Gynecology [address] [facility], [address] [place] [address] Nneka Gipson MD [address] [place] [address] 12/25/2024 1:00 PM EST Office Visit [facility] Nephrology, Bone & Mineral Metabolism [address] [facility], [address] [place] [address] documented as of this encounter [...] as of this encounter Care Teams Medical Scientist Relationship Specialty Start Date End Date Norma Friedman APRN [address] [place] [address] PCP - General 09/23/24 Lizz Trinh, RN [facility] Registered Nurse Cardiology 09/26/24 documented as of this encounter
--- OUTSIDE RECORDS SUMMARY | 2024-10-25 07:11 | XMS_ITS | Encounter Summary ---
Author Organization Healthcare Address [address] [place] [address] Care Team Providers Care Curtain Cutter Name Role Phone Norma Friedman JOLENE Primary Care Provider +1- [phone] Lizz Trinh RN Unavailable Unavailable Encounter Details Date Type Department Care Team (Late st Contact Info) Description 10/23/2024 Orders Only [facility] Obstetrics & Gynecology [address] [place] [address] Ana Deal MD [address] [place] [address] Social History Tobacco Use Types Packs/Day Years [...] more drinks on one occasion? Never 09/23/2024 [place] Depression Scale Answer Date Recorded [place] Depression Scale Total 0 09/23/2024 The [...] Encounter P[facility] H Labor and Delivery [address] [place] [address] 11/14/2024 11:15 AM EDT Visit Medical Office Building Obstetrics and Gynecology [address] [facility], [address] [place] [address] Nneka Gipson MD [address] [place] [address] 12/25/2024 1:00 PM EST Office Visit [facility] Nephrology, Bone & Mineral Metabolism [address] [facility], [address] [place] [address] documented as of this encounter Visit Diagnoses Not on filedocumented in this encounter Additional Health Concerns Assessment Noted Time A fall risk assessment has been complete d for the patient 09/26/2024 8:15 AM EDT A Body Mass Index follow-up plan has been documented for the patient 10/20/2024 9:52 AM EDT documented as of this encounter Care Teams Curtain Cutter Relationship Specialty Start Date End Date Norma Friedman APRN [address] [place] [address] PCP - General 09/23/24 Lizz Trinh, RN [facility] Registered Nurse Cardiology 09/26/24 documented as of this encounter
--- OUTSIDE RECORDS SUMMARY | 2024-10-25 07:11 | XMS_ITS | Encounter Summary ---
[facility] [address] [place] [id number] Care Team Providers Care Welder Shielded Metal Arc Name Role Phone Elder Norma FERNÁNDEZ Primary Care Provider + [phone] Encounter Details Date Type Department Care Team (Late st Contact Info) Description 07/07/2024 Results Follow-Up [facility] OBGYN [address] [place] [address] [place] [id number] Kelly Delgado APRN [address] [facility] [address] [place] [address] Social History Tobacco Use Types Packs/Day Years Used Date Smoking Tobacco: Never Smokeless Tobacco: Never Alcohol Use Standard Drinks/Week Comments Never 0 (1 standard drink = 0.6 oz pur e alcohol) [facility] Utilities Answer Date Recorded In the past 12 months has [employer], gas, oil, or water [employer] threatened to shut off services in your [...] Office Visit [facility]STROENTEROLOGY [address] [address] Robbin Escalante MD [address] [address] documented as of this encounter Visit Diagnoses Not on filedocumented in this encounter Additional Health Concerns Assessment Noted Time PHQ-2 Depression Total Score: 2 05/28/19 25 4:39 PM EDT documented as of this encounter Care Teams Welder Shielded Metal Arc Relationship Specialty Start Date End Date Norma Friedman APRN [address] [place] [address] RAFAEL[place] APPIAH [address] PCP - General Family Medicine 05/14/24 documented as of this encounter
--- OUTSIDE RECORDS SUMMARY | 2024-10-25 07:11 | XMS_ITS | Encounter Summary ---
Author Organization Healthcare Address [address] [place] [address] Care Team Providers Care Drop Man Name Role Phone Norma Friedman JOLENE Primary Care Provider +1- [phone] Lizz Trinh RN Unavailable Unavailable Encounter Details Date Type Department Care Team (Latest Contact Info) Description 10/23/2024 Travel Social History Tobacco Use Types Packs/Day [...] more drinks on one occasion? Never 09/23/2024 [place] Depression Scale Answer Date Recorded [place] Depression Scale Total 0 09/23/2024 The thought [...] PAV H Labor and Delivery [address] [place] [address] 11/14/2024 11:15 AM EDT Visit Medical Office Building Obstetrics and Gynecology [address] , [address] [place] [address] Nneka Gipson MD [address] [place] [address] 12/25/2024 1:00 PM EST Office Visit [facility] Nephrology, Bone & Mineral Metabolism [address] [facility], [address] [place] [address] documented as of this encounter Visit Diagnoses Not on filedocumented in this encounter Additional Health Concerns Assessment Noted Time A fall risk assessment has been complete d for the patient 09/26/2024 8:15 AM EDT A Body Mass Index follow-up plan has been documented for the patient 10/20/2024 9:52 AM EDT documented as of this encounter Care Teams Drop Man Relationship Specialty Start Date End Date Norma Friedman APRN [address] [place] [address] PCP - General 09/23/24 Lizz Trinh, RN [facility] Registered Nurse Cardiology 09/26/24 documented as of this encounter
--- OUTSIDE RECORDS SUMMARY | 2024-10-25 07:11 | XMS_ITS | Encounter Summary ---
Author Organization Healthcare Address [address] [place] [address] Care Team Providers Care Crisis Mental Health Therapist Name Role Phone Norma Friedman JOLENE Primary Care Provider +1- [phone] Lizz Trinh RN Unavailable Unavailable Encounter Details Date Type Department Care Team ([facility] Contact Info) Description 10/21/2024 Telephone Ch filter helper (l&d) Virtual Dept. [address] [place] [address] Ana Deal MD [address] [place] [address] Social History Tobacco Use Types Packs/Day Years [...] treatment from her PCP. 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 Discussed with [facility] and MFM Fellow applications packager, Perry Gage, who agree that the patient should have [...] Encounters Date Type Department Care Team ([facility] st Contact Info) Description 10/31/2024 Hospital Encounter [facility] H Labor and Delivery [address] [place] [address] 11/14/2024 11:15 AM EDT Visit Medical Office Building Obstetrics and Gynecology [address] [facility], [address] [place] [address] Nneka Gipson MD [address] [place] [address] 12/25/2024 1:00 PM EST Office Visit [facility] Nephrology, Bone & Mineral Metabolism [address] [facility], [address] [place] [address] documented as of this encounter Visit Diagnoses Diagnosis Esophagitis- Primary Unspecified esophagitis documented in this encounter Additional Health Concerns Assessment Noted Time A fall risk assessment has been complete d for the patient 09/26/2024 8:15 AM EDT A Body Mass Index follow-up plan has been documented for the patient 10/20/2024 9:52 AM EDT documented as of this encounter Care Teams Crisis Mental Health Therapist Relationship Specialty Start Date End Date Norma Friedman APRN [address] [place] [address] PCP - General 09/23/24 Lizz Trinh, RN [facility] Registered Nurse Cardiology 09/26/24 documented as of this encounter
--- OUTSIDE RECORDS SUMMARY | 2024-10-25 07:12 | XMS_ITS | Encounter Summary ---
Author Organization Healthcare Address [address] [place] [address] Care Team Providers Care Hse Manager Name Role Phone Norma Friedman JOLENE Primary Care Provider +1- [phone] Lizz Trinh RN Unavailable Unavailable Encounter Details Date Type Department Care Team (Latest Contact Info) Description 10/24/2024 Travel Social History Tobacco Use Types Packs/Day [...] more drinks on one occasion? Never 09/23/2024 [place] Depression Scale Answer Date Recorded [place] Depression Scale Total 0 09/23/2024 The thought [...] things Not at all 10/24/2024 7:52 AM Nadine Mayo Feeling down, depressed, or hopeless Not at all 10/07 7:52 AM EDNadine Cintron Patient Health Questionnaire-2 Score 0 10/07 7:52 AM Nadine Mayo * Question Answer Date of Assessment Author Trouble falling or staying a sleep, or sleeping too much Not at all 10/24/2024 7:52 AM EDNadine Cintron Feeling tired or having little energy Not at all 7:52 AM EDNadine Cintron Poor appetite or overeating Not at all [...] Not difficult at all 10/24/2024 7:52 AM Nadine Craft documented as of this encounter Plan of Treatment Upcoming Encounters Date Type Department Care Team (Late st Contact Info) Description 10/31/2024 Hospital Encounter [facility] Labor and Delivery [address] [place] [address] 11/14/2024 11:15 AM EDT Visit Medical Office Building Obstetrics and Gynecology [address] [facility], [address] [place] [address] Nneka Gipson MD [address] [place] [address] 12/25/2024 1:00 PM EST Office Visit Professional [email or web address] [place] Nephrology, Bone & Mineral Metabolism [address] [facility], [address] [place] [address] documented as of this encounter [...] documented as of this encounter Care Teams Hse Manager Relationship Specialty Start Date End Date Norma Friedman, CENTRAL PROCESSING TECHNICIAN [address] [place] [address] PCP - General 09/23/24 Lizz Trinh, RN [facility] Registered Nurse Cardiology 09/26/24 documented as of this encounter
--- OUTSIDE RECORDS SUMMARY | 2024-10-25 07:12 | XMS_ITS | Encounter Summary ---
Author Organization Healthcare Address [address] [place] [address] Care Team Providers Care Hide And Skin Fleshing Machine Operator Name Role Phone Valentino Friedmanseven Zbigniew JOLENE Primary Care Provider +1- [phone] Lizz Trinh RN Unavailable Unavailable Encounter Details Date Type Department Care Team (Late st Contact Info) Description 10/23/2024 Telephone [facility] Obstetrics & Gynecology [address] [place] [address] Veronica Deal MD [address] [place] [id number] Social History Tobacco Use Types Packs/Day Years [...] more drinks on one occasion? Never 09/23/2024 [place] Depression Scale Answer Date Recorded [place] Depression Scale Total 0 09/23/2024 The thought [...] as of this encounter Miscellaneous Notes * Addendum Note - Veronica Deal MD - 10/23/2024 6:04 PM EDTAddended by: VERONICA DEAL on: 10/23/2024 06:04 PM Modules accepted: Orders * Telephone Encounter - Veronica Deal MD - 10/23/2024 12:57 PM EDT Spoke with patient over the phone about persistent esophageal pain. She has been taking tylenol/pepcid/omeprazole without relief and is now having trouble tolerating PO due to pain. She states that she has been able to take her antiviral medication as prescribed. Per GI recommendations we will planto send and try Baclofen to help with pain. She will follow-up in M clinic tomorrow morning. Discussed with M on kera, Dr. Gipson. documented in this encounter Plan of Treatment Upcoming Encounters Date Type Department Care Team ([facility] st Contact Info) Description 10/31/2024 Hospital Encounter [facility] H Labor and Delivery [address] [place] [address] 11/14/2024 11:15 AM EDT Visit Medical Office Building Obstetrics and Gynecology [address] [facility], [address] [place] [address] Nneka Gipson MD [address] [place] [address] 12/25/2024 1:00 PM EST Office Visit Professional [facility] Nephrology, Bone & Mineral Metabolism [address] [facility], [address] [place] [address] documented as of this encounter Visit Diagnoses Not on filedocumented in this encounter Additional Health Concerns Assessment Noted Time A fall risk assessment has been complete d for the patient 09/26/2024 8:15 AM EDT A Body Mass Index follow-up plan has been documented for the patient 10/20/2024 9:52 AM EDT documented as of this encounter Care Teams Hide And Skin Fleshing Machine Operator Relationship Specialty Start Date End Date Norma Friedman APRN [address] [place] [address] PCP - General 09/23/24 Lizz Trinh, RN [facility] Registered Nurse Cardiology 09/26/24 documented as of this encounter
--- OUTSIDE RECORDS SUMMARY | 2024-10-25 07:12 | XMS_ITS | Clinical Summary ---
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 20 tablet 10/22/19 25 Active baclofen (Lioresal) 10 MG tablet Take 1 tablet by mouth 3 times a day. 90 tablet 1 10/24/19 25 Active sucralfate (Carafate) 1 GM/10ML suspension Take 10 mL by mouth 4 times a day for 10 days. 400 mL 10/24/19 25 Active cephalexin (Keflex) 500 MG capsule 10/22/19 Active famotidine (Pepcid) 20 MG tablet Take 1 tablet by mouth 2 times a day. 04/13/19 25 Active potassium chloride CR 10 MEQ PO ER tablet Take 1 tablet by mouth 2 times a day. 09/03/19 025 Discontinued(E ntered in Error) metoprolol succinate XL (Toprol XL) 25 MG 24 hr tablet Take 0.5 tablets by mouth 2 times a day. Do not crush or chew. 30 tablet 1 09/24/19 025 Discontinued potassium chloride (Klor-Con) 20 MEQ packet Take twice a day for 3 days each week. 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), sequela; Renal tubular acidosis; Hypokalemia; Cardiac arrhythmia, unspecified cardiac arrhythmia type; Cholestasis during in third trimester 10/24/2024 8:00 AM EDT Office Visit [facility] [address], [address] [place] [address] Dilip Vasquez MD Palpitations (Primary Dx) 10/24/2024 Orders Only Medical Office Building Obstetrics and Gynecology [address], [address] [place] [address] Kaitlyn Richter MD 10/24/2024 Travel 10/23/2024 Telephone [facility] Gyne[facility] [address] [place] [address] Ana Deal MD 10/23/2024 Orders Only [facility] [address] [place] [address] Ana Deal MD 10/23/2024 Travel 10/21/2024 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 [address] [place] [address] Ana Deal MD 10/19/2024 1:03 AM EDT Anesthesia Event [facility] [address] [place] [address] Everett Farrar MD 10/19/2024 Travel 10/18/2024 Travel 10/17/2024 3:47 PM EDT - 10/20/2024 10:16 AM EDT Hospital Encounter [facility] [address] [place] [address] Hilton Montelongo MD Discharge Disposition: Home or Self Care 10/17/2024 10:30 AM EDT - 10/17/2024 3:46 PM EDT Hospital Encounter Medical Office Building Obstetrics and Gynecology [address], [address] [place] [address] NST (non-stress test) nonreactive Discharge Disposition: Home or Self Care 10/17/2024 9:30 AM EDT NST Medical Office Building Obstetrics and Gynecology [address], [address] [place] [address] growth restriction antepartum (Primary Dx) 10/17/2024 9:15 AM EDT Routine Medical Office Building Obstetrics and Gynecology [address], [address] [place] [address] Dilip Gipson MD NST (non-stress test) nonreactive (Primary Dx); Supervision of high risk , antepartum 10/17/2024 Telephone Medical Office Building Obstetrics and Gynecology [address], [address] [place] [address] Tracy Segovia, RN 10/17/2024 Telephone Medical Office Building Obstetrics and Gynecology [address], [address] [place] [address] Tracy Segovia, RN [facility] Care coordiantion 10/17/2024 Travel 10/16/2024 Results Follow-Up [facility] [address] [place] [address] Dilip Vasquez MD 09/26/2024 9:06 AM EDT - 09/26/2024 11:59 PM EDT Hospital Encounter Medical Office Building Cardiac Diagnostic Testing Medical Office Building Echo Lab [address], [address] [place] [address] Palpitations; Syncope and collapse Discharge Disposition: Home or Self Care 09/26/2024 8:00 AM EDT Office Visit [facility] [address], [address] [place] [address] Dilip Vasquez MD Syncope and collapse (Primary Dx); Atrial fibrillation, unspecified type (CMS/HCC); Palpitations 09/26/2024 Travel 09/25/2024 2:20 PM EDT Office Visit Professional [facility] Nephrology, Bone & Mineral Metabolism [address] , [address] [place] [address] Bill Patrick MD Hypokalemia (Primary Dx) 09/25/2024 Travel 09/23/2024 10:00 AM EDT Office Visit Medical Office Building Obstetrics and Gynecology [address] , [address] [place] [address] Liborio Weller MD Supervision of high risk , antepartum (Primary Dx); Cardiac arrhythmia, unspecified cardiac arrhythmia type 09/23/2024 Travel 09/17/2024 Telephone [facility] Nephrology, Bone & Mineral Metabolism [address], [address] [place] [address] Sherley Gold, 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 BOAT OPERATOR 09/17/2024 Telephone Medical Office Building Obstetrics and Gynecology [address], [address] [place] [address] Josefina Shay RN 09/14/2024 Telephone [facility] & [facility]ne[facility] [address] [place] [address] Susi Wren MD from Last 3 Months Immunizations Immunization Administration Dates Next Due HPV 9-Valent 03/29/2017 HPV, Quadrivalent 08/01/2016,06/23/2016 Hep A, Adult 01/15/2018 Influenza, seasonal, injectable 03/28/2012 Influenza, seasonal, injecta ble, preservative free 03/30/2016 MMR 06/01/2022,04/23/2016 TD (adult), 2 Lf tetanus tox oid, preservative free, adsorbed 06/03/2009 Tdap 09/09/2024, 3,10/03/2020,2017,04/23/2016,05/21/2014 Family History Medical History Relation Name Comments [...] Mass Index 26.64 10/24/2024 9:29 AM EDT Plan of Treatment Upcoming Encounters Date Type Department Care Team ([facility] st Contact Info) Description 10/31/2024 Hospital Encounter [facility] Delivery [address] [place] [address] 11/14/2024 11:15 AM EDT Visit Medical Office Building Obstetrics and Gynecology [address], [address] [place] [address] Dilip Gipson MD [address] [place] [address] 12/25/2024 1:00 PM EST Office Visit Professional [facility] Nephrology, Bone & Mineral Metabolism [address], [address] [place] [address] Health Maintenance Due Date Last Done Comments [facility]-/Child/Adol SDOH Screenings 1991 [facility]- SDOH Screenings 2009 [facility]-Adult SDOH Screenings 2009 [facility]-Hepatitis B Vaccines (1 of 3 - 19+ 3-dose series) 2010 [facility]-Pap Smear 2012 [facility]-Hepatitis A Vaccines (2 of 2 - Risk 2-dose series) 07/16/2018 01/15/2018 [facility]-Cervical Cancer Screening 2021 [facility]-HPV/Cotest 2021 [facility]-Varicella Vaccines (1 of 2 - 13+ 2-dose series) 06/29/2022 [id number] Vaccine (2 - 2024- season) 2024 05/04/2022 [facility]-Influenza Vaccine (#1) 2024 03/30/2016, [facility]-RSV Vaccine: 60+ Years or (1 - Risk 1-dose series) 10/07/2024 [facility]-Depression Screening 10/24/2025 025, 10/24/2024, 09/23/2024 [facility]-DTaP,Tdap,and Td Vaccines (8 - Td or Tdap) 09/09/2034 09/09/2024, 06/01/2022, 10/03/2020, Additional history exists [facility]-Zoster Vaccines (1 of 2) 2041 HPV Vaccines Completed 03/29/2017, 07/08, 06/23/2016 [facility]-HIV Screening Completed 01/22/2019 [facility]-Hepatitis C Screening Completed 01/22/2019 [facility]-Obesity Intervention Completed 025, 10/17/2024, 09/26/2024, Additional history exists [facility]-HIB Vaccines Aged Out [...] EDT Supervision of high risk , antepartum TROPONIN T, HIGH SENSITIVITY, CARDIAC RISK ASSESSMENT Routine 10/24/2024 8:38 AM EDT Palpitations N-TERMINAL PROBNP, PLASMA Routine 10/24/2024 8:38 AM EDT Palpitations BROOKE MEJIAS VIRUS (EBV) QUANTITATIVE PCR Routine [...] 03 AM EDT PHOSPHORUS, PLASMA Timed 10/19/2024 7 :03 AM EDT MAGNESIUM, PLASMA Timed 10/19/2024 7:0 [...] Maintenance Results * (ABNORMAL) POCT Urinalysis Dipstick (10/24/2024 10:13 AM EDT) Only the most recent of3 resultswithin the time period is included. Pathologist [facility] [place] POCT Urine Color Yellow POCT Urine Clarity Clear POCT Glucose Urine Negative Negative mg/dL POCT Bilirubin, Urine Negative Negative POCT Ketones, Urine Negative Negative mg/dL POCT Specific [place], Urine 1.015 POCT Blood, Urine Negative Negative POCT pH, Urine 8.5(A) 5.0 to 8.0 POCT Protein, Urine Trace(A) Negative mg/dL POCT Urobilinogen, Urine 0.2 0.2, 1 E.U./dL POCT Nitrite, Urine Negative Negative POCT Leukocyte Esterase, Urine Negative Negative Test Strip Lot Number [id number] Test Strip Lot Expiration 08/2025 Urine Urine specimen obtained by clean catch procedure / Unknown 10/24/2024 10:13 AM EDT Laury Cruz MD POINT OF CARE TEST ENTER/EDIT ORDERABLES Final Result * N-Terminal Probnp, Plasma (10/24/2024 8:38 AM EDT) Only the most recent of2 resultswithin the time period is included. [facility] N-Terminal, PROBNP, Plasma 175 0 - 449 pg/mL 10/24/2024 11:40 AM EDT [facility] Blood Venous blood specimen / Unknown Venipuncture / Unknown 10/24/2024 8:38 AM EDT 10/24/2024 8:40 AM EDT Dilip Vasquez MD LAB BLOOD ORDERABLES Final Result [facility] [address] [place] [address] * Troponin T, High Sensitivity, Cardiac Risk Assessment (10/24/2024 8:38 AM EDT) [facility] Troponin T, High Sensitivity, 0 Hour <6 <14 ng/L 10/24/2024 11:40 AM EDT [facility] Blood Venous blood specimen / Unknown Venipuncture / Unknown 10/24/2024 8:38 AM EDT 10/24/2024 8:40 AM EDT us Dilip Vasquez MD LAB BLOOD ORDERABLES Final Result Performing Organization Address City/[facility]/ZIP Co de Phone Number [facility] [address] [place] [address] * (ABNORMAL) Herpes Simplex Virus by PCR (Serum) (10/19/2024 9:28 PM EDT) Herpes Simplex Virus 1 (HSV-1) PCR Result Detected(AA) Not Detected 10/21/2024 11:30 AM EDT [facility] Comment:Previously prelim ve rified as Not Detected on 10/20/2024 at 1221 EDT. Herpes Simplex Virus 2 (HSV-2) PCR Result Not Detected Not Detected 10/21/2024 11:30 AM EDT [facility] Serum Venous blood specimen / Unknown 10/19/2024 9:28 PM EDT 10/19/2024 11:58 PM EDT Narrative [facility] - 10/21/2024 11:30 AM EDT This PCR assay was developed and its performance characteristics determined by [facility] as appropriate for clinical purposes. This assay has not been cleared or approved by the FDA, but is performed in a CLIA regulated laboratory that is qualified to perform high-complexity testing. This PCR assay was developed and its performance characteristics determined by [facility] as appropriate for clinical purposes. This assay has not been cleared or approved by the FDA, but is performed in a CLIA regulated laboratory that is qualified to perform high-complexity testing. This PCR assay was developed and its performance characteristics determined by [facility] as appropriate for clinical purposes. This assay has not been cleared or approved by the FDA, but is performed in a CLIA regulated laboratory that is qualified to perform high-complexity testing. us Hilton Montelongo MD LAB MICROBIOLOGY - GENERAL OR DERABLES Final Result Performing Organization Address City/[facility]/ZIP Co de Phone Number [facility] [address] [place] [address] * Brooke Mejias Virus (EBV) Quantitative PCR (10/19/2024 9:28 PM EDT) Brooke Mejias Virus, Blood, Quant DNA Interpretation Not Detected Not Detected 10/23/2024 12:34 PM EDT [facility] Blood Venous blood specimen / Unknown Venipuncture / Unknown 10/19/2024 9:28 PM EDT 10/19/2024 11:58 PM EDT Narrative [facility] - 10/23/2024 12:34 PM [...] developed and it's performance characteristics determined by [facility] as appropriate for clinical purposes. [...] developed and it's performance characteristics determined by [facility] as appropriate for clinical purposes. This assay has not been cleared or approved by the FDA, but is performed in a CLIA regulated laboratory that is qualified to perform high-complexity testing. us Hilton Montelongo MD LAB BLOOD ORDERABLES Final Re sult [facility] [address] [place] [address] * Cytomegalovirus (CMV) Quantitative PCR (10/19/2024 9:28 PM EDT) Cytomegalovirus (CMV) Quantitative Interpretation Not Detected Not Detected 10/21/2024 12:44 PM EDT [facility] Blood Venous blood specimen / Unknown Venipuncture / Unknown 10/19/2024 9:28 PM EDT 10/19/2024 11:58 PM EDT Narrative [facility] - 10/21/2024 12:44 PM EDT The YODIL M2000 CMV test is a Real Time [...] ORDERABLES Final Re sult Performing Organization Address City/[facility]/ZIP Co de Phone Number [facility] [address] [place] [address] * Phosphorus, Plasma (10/19/2024 9:28 PM EDT) Only the most recent of11 resultswithin the time period is included. Pathologist [facility] [place] Phosphorus, Plasma 2.5 2.5 - 4.5 mg/dL 10/19/2024 10:07 PM EDT [facility] Blood Venous blood specimen / Unknown Venipuncture / Unknown 10/19/2024 9:28 PM EDT 10/19/2024 9:38 PM EDT Santos Herrmann MD LAB BLOOD ORDERABLES Final Resu lt [facility] [address] [place] [address] * (ABNORMAL) Magnesium (10/19/2024 9:28 PM EDT) Only the most recent of12 resultswithin the time period is included. Magnesium, Plasma 1.7(L) 1.9 - 2.4 mg/dL 10/19/2024 10:07 PM EDT [facility] Blood Venous blood specimen / Unknown Venipuncture / Unknown 10/19/2024 9:28 PM EDT 10/19/2024 9:38 PM EDT us Santos Herrmann MD LAB BLOOD ORDERABLES Final Resu lt [facility] [address] [place] [address] * (ABNORMAL) Basic metabolic panel (10/19/2024 9:28 PM EDT) Only the most recent of9 resultswithin the time period is included. Glucose, Plasma 78 74 - 99 mg/dL 10/19/2024 10:07 PM EDT [facility] BUN, Plasma 4(L) 7 - 21 mg/dL 10/19/2024 10:07 PM EDT [facility] Creatinine, Plasma 0.61 0.60 - 1.10 mg/dL 10/19/2024 10:07 PM EDT [facility] BUN/Creatinine Ratio 7 10/19/2024 10:07 PM EDT [facility] Sodium, Plasma 137 136 - 145 mmol/L 10/19/2024 10:07 PM EDT [facility] Potassium, Plasma 4.3 3.6 - 4.9 mmol/L 10/19/2024 10:07 PM EDT [facility] Chloride, Plasma 108(H) 97 - 107 mmol/L 10/19/2024 10:07 PM EDT [facility] CO2, Plasma 20(L) 22 - 29 mmol/L 10/19/2024 10:07 PM EDT [facility] Anion Gap 9 6 - 16 mmol/L 10/19/2024 10:07 PM EDT [facility] Total Calcium, Plasma 7.8(L) 8.9 - 10.2 mg/dL 10/19/2024 10:07 PM EDT [facility] eGFRcr 121.2 mL/min/1.7 3m*2 10/19/2024 10:07 PM EDT [facility] Comment:Reported eGFRcr in m L/min/1.73m2 is based the CKD-EPI 2020 equation that does not use a race coefficient. Blood Venous blood specimen / Unknown Venipuncture / Unknown 10/19/2024 9:28 PM EDT 10/19/2024 9:38 PM EDT us Santos Herrmann MD LAB BLOOD ORDERABLES Final Resu lt [facility] [address] [place] [address] * ECG Adult (10/19/2024 6:45 PM EDT) Only the most recent of5 resultswithin the time period is included. EKG DIAGNOSIS CLASS Normal MUSE ECG Ventricular Rate 82 BPM MUSE ECG Atrial Rate 82 BPM MUSE ECG NV Interval 138 ms MUSE ECG QRSD Interval 80 ms MUSE ECG QT Interval 360 ms MUSE ECG QTC Interval 420 ms MUSE ECG P [place] 46 degrees MUSE ECG R [place] 29 degrees MUSE ECG T Wave [place] 36 degrees MUSE ECG Diagnosis Normal sinus rhythm MUSE ECG Diagnosis Normal ECG MUSE ECG Diagnosis MUSE ECG Diagnosis Confirmed by Noel Osman ([id number]) on 10/20/2024 12:15:29 PM MUSE ECG 10/19/2024 6:45 PM EDT 10/20/2024 12:15 PM EDT us Hilton Montelongo MD ECG ORDERABLES Final Result Performing Organization Address City/[facility]/ZIP Co de Phone Number MUSE ECG * (ABNORMAL) Hepatic function panel (10/19/2024 5:12 PM EDT) Direct Bilirubin, Plasma <0.2 <=0.3 mg/dL 10/19/2024 7:32 PM EDT [facility] Alkaline Phosphatase, Plasma 68 35 - 104 U/L 10/19/2024 7:32 PM EDT [facility] Total Bilirubin, Plasma 0.3 0.2 - 1.1 mg/dL 10/19/2024 7:32 PM EDT [facility] Albumin, Plasma 2.5(L) 3.5 - 5.2 g/dL 10/19/2024 7:32 PM EDT [facility] Total Protein 5.2(L) 6.3 - 7.9 g/dL 10/19/2024 7:32 PM EDT [facility] ALT, Plasma 48(H) 10 - 35 U/L 10/19/2024 7:32 PM EDT [facility] AST, Plasma 35 10 - 35 U/L 10/19/2024 7:32 PM EDT [facility] Blood Venous blood specimen / Unknown Venipuncture / Unknown 10/19/2024 5:12 PM EDT 10/19/2024 5:30 PM EDT us Hilton Montelongo MD LAB BLOOD ORDERABLES Final Re sult [facility] [address] [place] [address] * US Abdomen Focused Region Liver, GB, [...] Urine 29.1 mg/dL 10/19/2024 3:24 PM EDT [facility] Phosphorus per day, Urine 0.8 0.4 - 1.3 g/d 10/19/2024 3:24 PM EDT [facility] Hours Of Collection 24 HRS 10/19/2024 3:24 PM EDT [facility] Urine, Volume 2,750 mL 10/19/2024 3:24 PM EDT [facility] Urine Urine specimen obtained by clean catch procedure / Unknown Non-blood Collection / Unknown 10/19/2024 2:43 PM EDT 10/19/2024 2:53 PM EDT us Santos Herrmann MD LAB URINE ORDERABLES Final Resu lt [facility] [address] [place] [address] * Albumin-creatinine ratio, 24 hr urine (10/19/2024 2:43 PM EDT) Microalbumin, Urine <1.2 <1.9 mg/dL 10/19/2024 3:39 PM EDT [facility] Albumin per day 3:39 PM EDT [facility] Comment:Unable to calculate, at least one value is above or below the detection limit. Microalbumin Excretion Rate 10/19/2024 3:39 PM EDT [facility] Comment:Unable to calculate, at least one value is above or below the detection limit. Creatinine, Urine 30 mg/dL 025 3:39 PM EDT [facility] Creatinine, 24H Ur 825 500 - 1,600 mg/d 10/19/2024 3:39 PM EDT [facility] Comment:Unable to calculate, at least one value is above or below the detection limit. Albumin/Creatinin e Ratio 10/19/2024 3:39 PM EDT [facility] Comment:Unable to calculate, at least one value is above or below the detection limit. Hours Of Collection 24 HRS 10/19/2024 3:39 PM EDT [facility] Urine, Volume 2,750 mL 10/19/2024 3:39 PM EDT [facility] Urine Urine specimen obtained by clean catch procedure / Unknown Non-blood Collection / Unknown 10/19/2024 2:43 PM EDT 10/19/2024 2:52 PM EDT us Santos Herrmann MD LAB URINE ORDERABLES Final Resu lt [facility] [address] [place] [address] * Calcium, 24 Hour Urine (10/19/2024 2:43 PM EDT) Calcium, Urine 3.1 mg/dL 10/19/2024 3:24 PM EDT [facility] Calcium per day, Urine 85 mg/day 10/19/2024 3:24 PM EDT [facility] Hours Of Collection 24 HRS 10/19/2024 3:24 PM EDT [facility] Urine, Volume 2,750 mL 10/19/2024 3:24 PM EDT [facility] Urine Urine specimen obtained by clean catch procedure / Unknown Non-blood Collection / Unknown 10/19/2024 2:43 PM EDT 10/19/2024 2:53 PM EDT Narrative [facility] - 10/19/2024 3:24 PM EDT Free Ca diet 5 - 40 mg/d Low to average Ca diet 50 - 150 mg/d Average Ca diet 100 - 300 mg/d us Santos Herrmann MD LAB URINE ORDERABLES Final Resu lt Performing Organization Address City/[facility]/ZIP Co de Phone Number [facility] [address] [place] [address] * Creatinine, 24 Hour Urine (10/19/2024 2:43 PM EDT) Creatinine, Urine 30 mg/dL 10/19/2024 3:39 PM EDT [facility] Creatinine per day, Urine 825 500 - 1,600 mg/d 10/19/2024 3:39 PM EDT [facility] Hours Of Collection 24 HRS 10/19/2024 3:39 PM EDT [facility] Urine, Volume 2,750 mL 10/19/2024 3:39 PM EDT [facility] Urine Urine specimen obtained by clean catch procedure / Unknown Non-blood Collection / Unknown 10/19/2024 2:43 PM EDT 10/19/2024 2:52 PM EDT us Santos Herrmann MD LAB URINE ORDERABLES Final Resu lt Performing Organization Address [facility] Co de Phone Number [facility] [address] [place] [address] * Sodium, 24 Hour, Urine (10/19/2024 2:43 PM EDT) Sodium, Urine 45 mmol/L 10/19/2024 3:39 PM EDT [facility] Sodium per day 124 48 - 168 mmol/d 10/19/2024 3:39 PM EDT [facility] Hours Of Collection 24 HRS 10/19/2024 3:39 PM EDT [facility] Urine, Volume 2,750 mL 10/19/2024 3:39 PM EDT [facility] Urine Urine specimen obtained by clean catch procedure / Unknown Non-blood Collection / Unknown 10/19/2024 2:43 PM EDT 10/19/2024 2:52 PM EDT us Santos Herrmann MD LAB URINE ORDERABLES Final Resu lt Performing Organization Address City/[facility]/ZIP Co de Phone Number [facility] [address] [place] [address] * Total Protein, 24 Hour Urine (10/19/2024 2:43 PM EDT) Protein, Urine <6 mg/dL 10/19/2024 3:39 PM EDT [facility] Total Protein per day 10/19/2024 3:39 PM EDT [facility] Comment:Unable to calculate, at least one value is above or below the detection limit. Hours Of Collection 24 HRS 10/19/2024 3:39 PM EDT [facility] Urine, Volume 2,750 mL 10/19/2024 3:39 PM EDT [facility] Urine Urine specimen obtained by clean catch procedure / Unknown Non-blood Collection / Unknown 10/19/2024 2:43 PM EDT 10/19/2024 2:52 PM EDT Narrative [facility] - 10/19/2024 3:39 PM EDT Reference Range <80 mg/day if bed rest <150 mg/day if ambulatory us Santos Herrmann MD LAB URINE ORDERABLES Final Resu lt Performing Organization Address [facility] Co de Phone Number [facility] [address] [place] [address] * Potassium, Urine, 24 Hour (10/19/2024 2:43 PM EDT) Potassium, Urine 20 mmol/L 10/19/2024 3:39 PM EDT [facility] Hours Of Collection 24 HRS 10/19/2024 3:39 PM EDT [facility] Urine, Volume 2,750 mL 10/19/2024 3:39 PM EDT [facility] Potassium per day, Urine 55 18 - 58 mmol/d 10/19/2024 3:39 PM EDT [facility] Urine Urine specimen obtained by clean catch procedure / Unknown Non-blood Collection / Unknown 10/19/2024 2:43 PM EDT 10/19/2024 2:52 PM EDT us Santos Herrmann MD LAB URINE ORDERABLES Final Resu lt Performing Organization Address City/[facility]/ZIP Co de Phone Number [facility] [address] [place] [address] * (ABNORMAL) Magnesium, urine, 24 hour (10/19/2024 2:43 PM EDT) Magnesium, Random Urine 24.3 mg/dL 10/19/2024 3:24 PM EDT [facility] Magnesium per day 668.3(H) 70.0 - 120.0 mg/d 10/19/2024 3:24 PM EDT [facility] Hours Of Collection 24 HRS 10/19/2024 3:24 PM EDT [facility] Urine, Volume 2,750 mL 10/19/2024 3:24 PM EDT [facility] Urine Urine specimen obtained by clean catch procedure / Unknown Non-blood Collection / Unknown 10/19/2024 2:43 PM EDT 10/19/2024 2:53 PM EDT us Santos Herrmann MD LAB URINE ORDERABLES Final Resu lt Performing Organization Address City/[facility] Co de Phone Number [facility] [address] [place] [address] * Chloride, 24 Hour Urine (10/19/2024 2:43 PM EDT) Chloride, Urine <20 mmol/L 3:39 PM EDT [facility] Hours Of Collection 24 HRS 10/19/2024 3:39 PM EDT [facility] Urine, Volume 2,750 mL 10/19/2024 3:39 PM EDT [facility] Chloride per day, Urine 10/19/2024 3:39 PM EDT [facility] Comment:Unable to calculate, at least one value is above or below the detection limit. Urine Urine specimen obtained by clean catch procedure / Unknown Non-blood Collection / Unknown 10/19/2024 2:43 PM EDT 10/19/2024 2:52 PM EDT us Graham F Montez MD LAB URINE ORDERABLES Final Resu lt [facility] [address] [place] [address] * (ABNORMAL) Aldosterone (10/18/2024 10:56 PM EDT) Aldosterone 115.0(H) 4.0 - 31.0 ng/dL 10/21/2024 8:21 AM EDT [facility] Blood Venous blood specimen / Unknown Venipuncture / Unknown 10/18/2024 10:56 PM EDT 10/18/2024 11:29 PM EDT Santos Herrmann MD LAB BLOOD ORDERABLES Final Resu lt Performing Organization Address [facility] Co de Phone Number [facility] [address] [place] [address] * (ABNORMAL) Plasma Renin Activity (LC/MS/MS) (10/18/2024 10:56 PM EDT) PRA RESULT 30.67(H) 0.25 - 5.82 ng/mL/h 10/24/2024 7:47 PM EDT [facility] ([facility] ([facility]) Comment: This test was developed and its analytical performance characteristics have been determined by [employer]. It has not been cleared or approved by the FDA. This assay has been validated pursuant to the CLIA regulations and is used for clinical purposes. Blood Venous blood specimen / Unknown Venipuncture / Unknown 10/18/2024 10:56 PM EDT 10/18/2024 11:08 PM EDT Narrative [facility] ([facility] ([facility]) - 10/24/2024 7:47 PM EDT Performing Organization Information: Site ID: [id number] Name: [employer] Address: [id number] [place] [id number] Director: Malik Islas MD, PhD Santos Herrmann MD LAB BLOOD ORDERABLES Final Resu lt [facility] ([facility]) ([facility]) [employer] [facility] [address] [place] [address] * Group B Streptococcus by PCR (10/18/2024 1:47 PM EDT) Group B Streptococcus PCR Result Not Detected Not Detected 10/20/2024 7:26 AM EDT [facility] Swab Rectovaginal / Unknown Non-blood Collection / Unknown 10/18/2024 1:47 PM EDT 10/18/2024 1:59 PM EDT Narrative [facility] - 10/20/2024 7:26 AM [...] MICROBIOLOGY - GENERAL OR DERABLES Final Result [facility] [address] [place] [address] * ECHO, ADULT TRANSTHORACIC COMPLETE (10/18/2024 11:40 [...] Root Diam 31 mm [facility] PA NV(ACCEL) 28.2 mmHg [facility] LVLs ap2 6.7 [...] is no recent study available for direct [id number] comparison. Patient is 33 wks 5 days [...] is no recent study available for direct [id number]-dw-[id number] comparison. us Hilton Montelongo MD CV ECHO PROCEDURES Final Resu lt * POCT glucose meter (10/18/2024 9:42 AM EDT) [facility] POCT Glucose 78 74 - 99 mg/dL 10/18/2024 9:52 AM EDT [facility] Comment:Accuracy of a glucos e result [...] for testing. Comment 10/18/2024 9:52 AM EDT [facility] Conference Planner ID Tex Harman 09/12/2 025 9:52 AM EDT [facility] Device ID [id number] 10/18/2024 9:52 AM EDT [facility] Specimen Type POC Capillary 10/18/2024 9:52 AM EDT [facility] Blood Capillary blood specimen / Unknown 10/18/2024 9:42 AM EDT 10/18/2024 9:52 AM EDT us Hilton Montelongo MD LAB POINT OF CARE TE ST DOCKED DEVICE UNSOLICITED RESULTS Final Result Performing Organization Address City/[facility]/ZIP Co de Phone Number [facility] [address] [place] [address] * Light Green Top (10/18/2024 9:14 AM EDT) Extra Hold for add-ons 10/18/2024 12:01 PM EDT [facility] Comment:Auto resulted. Blood Venous blood specimen / Unknown 10/18/2024 9:14 AM EDT 10/18/2024 9:27 AM EDT Result [facility] us Hilton Montelongo MD LAB BLOOD ORDERABLES Final Re sult Performing Organization Address [facility] [place] [address] * OB US Biophysical Profile wo Non Stress Testing (10/18/2024 8:50 AM EDT) Anatomical Region Laterality Modality Body Ultrasound 10/18/2024 8:28 AM EDT Impressions 10/18/2024 9:40 AM EDT The OB Ultrasound you requested has been resulted. Please navigate to the Imaging tab in L2C for review. This message has been generated by the interface. Narrative Procedure Note Dilip Gipson MD - 10/18/2024 IMPRESSION: The OB Ultrasound you requested has been resulted. Please navigate to theImaging tab in L2C for review. This message has been generated by theinterface. us Hilton Montelongo MD IMG OB US PROCEDURES Final Re sult * Protein, Random, Urine with Creatinine (10/18/2024 4:03 AM EDT) Only the most recent of2 resultswithin the time period is included. Protein, Urine 10 mg/dL 10/18/2024 4:44 AM EDT [facility] Creatinine, Urine 62 mg/dL 10/18/2024 4:44 AM EDT [facility] Protein/Creatin ine Ratio 0.2 mg/mg Creat 10/18/2024 4:44 AM EDT [facility] Urine Urine specimen obtained by clean catch procedure / Unknown Non-blood Collection / Unknown 10/18/2024 4:03 AM EDT 10/18/2024 4:11 AM EDT Hilton Montelongo MD LAB URINE ORDERABLES Final Re sult Performing Organization Address [facility]/ZIP Co de Phone Number [facility] [address] [place] [address] * (ABNORMAL) Ionized calcium, whole blood (10/18/2024 3:38 AM EDT) Ionized Calcium, Whole Blood 4.3(L) 4.6 - 5.1 mg/dL LAB HEMATOLOGY METHOD 10/18/2024 5:42 AM EDT [facility] Blood Venous blood specimen / Unknown Venipuncture / Unknown 10/18/2024 3:38 AM EDT 10/18/2024 3:48 AM EDT Hilton Montelongo MD LAB BLOOD ORDERABLES Final Re sult [facility] [address] [place] [address] * (ABNORMAL) Blood gas panel, venous (10/18/2024 3:38 AM EDT) Only the most recent of2 resultswithin the time period is included. pH, Venous 7.47(H) 7.32 - 7.43 LAB HEMATOLOGY METHOD 10/18/2024 3:50 AM EDT [facility] pCO2, Venous 44 37 - 52 mmHg LAB HEMATOLOGY METHOD 10/18/2024 3:50 AM EDT [facility] pO2, Venous 115(H) 25 - 40 mmHg LAB HEMATOLOGY METHOD 10/18/2024 3:50 AM EDT [facility] SO2, Measured, Venous 100(H) 65 - 80 % LAB HEMATOLOGY METHOD 10/18/2024 3:50 AM EDT [facility] Base Excess, Venous 7.1(H) -2.0 - 3.0 mmol/L LAB HEMATOLOGY METHOD 10/18/2024 3:50 AM EDT [facility] Bicarbonate, Calculated, Venous 32(H) 22 - 26 mmol/L LAB HEMATOLOGY METHOD 10/18/2024 3:50 AM EDT [facility] Hematocrit, Whole Blood 27.5(L) 34.0 - 45.0 % LAB HEMATOLOGY METHOD 10/18/2024 3:50 AM EDT [facility] Sodium, Whole Blood 133(L) 136 - 145 mmol/L LAB HEMATOLOGY METHOD 10/18/2024 3:50 AM EDT [facility] Potassium, Whole Blood 2.8(L) 3.6 - 4.9 mmol/L LAB HEMATOLOGY METHOD 10/18/2024 3:50 AM EDT [facility] Chloride, Whole Blood 91(L) 97 - 107 mmol/L LAB HEMATOLOGY METHOD 10/18/2024 3:50 AM EDT [facility] Glucose, Whole Blood 72(L) 74 - 99 mg/dL LAB HEMATOLOGY METHOD 10/18/2024 3:50 AM EDT [facility] Lactate, Venous, Whole Blood 0.7 0.5 - 2.2 mmol/L LAB HEMATOLOGY METHOD 10/18/2024 3:50 AM EDT [facility] Ionized Calcium, Whole Blood 4.3(L) 4.6 - 5.1 mg/dL LAB HEMATOLOGY METHOD 10/18/2024 3:50 AM EDT [facility] Blood Venous blood specimen / Unknown Venipuncture / Unknown 10/18/2024 3:38 AM EDT 10/18/2024 3:48 AM EDT us Hilton Montelongo MD LAB BLOOD ORDERABLES Final Re sult Performing Organization Address City/[facility]/ZIP Co de Phone Number [facility] [address] [place] [address] * Troponin T, High Sensitivity, 2 Hour, Plasma (10/18/2024 1:12 AM EDT) Only the most recent of2 resultswithin the time period is included. Troponin T, High Sensitivity, 2 Hour <6 <14 ng/L 10/18/2024 1:46 AM EDT [facility] Blood Venous blood specimen / Unknown Venipuncture / Unknown 10/18/2024 1:12 AM EDT 10/18/2024 1:18 AM EDT Hilton Montelongo MD LAB BLOOD ORDERABLES Final Re sult Performing Organization Address [facility] Co de Phone Number [facility] [address] [place] [address] * Bile acids, total (10/18/2024 1:12 AM EDT) [facility] BILE ACIDS, TOTAL 5 0 - 10 umol/L 10/20/2024 12:29 AM EDT [employer] [facility]) Blood Venous blood specimen / Unknown Venipuncture / Unknown 10/18/2024 1:12 AM EDT 10/18/2024 1:18 AM EDT Narrative [facility] ([facility]) - 10/20/2024 12:29 AM EDT INTERPRETIVE INFORMATION: Bile Acids, Total Reference Interval applies to fasting specimens. Performed By: [employer] [facility] [address] [place] [address] Poultry Processing Supervisor: Brandon Bell MD, PhD CLIA Number: [id number] Hilton Montelongo MD LAB BLOOD ORDERABLES Final Re sult Performing Organization Address [facility] Co de Phone Number [facility] ([employer]) [address] [place] [address] * Group A Streptococcus by PCR (10/17/2024 11:25 PM EDT) [facility] Group A Streptococcus PCR Result Not Detected Not Detected 10/18/2024 12:38 AM EDT [facility] Swab Structure of peritonsillar tissue / Unknown Non-blood Collection / Unknown 10/17/2024 11:25 PM EDT 10/17/2024 11:49 PM EDT Hilton Montelongo MD LAB MICROBIOLOGY - GENERAL OR DERABLES Final Result Performing Organization Address [facility] Co de Phone Number [facility] [address] [place] [address] * Troponin T, High Sensitivity, 0 Hour Plasma, Reflex to 2 Hour (10/17/2024 10:41 PM EDT) Only the most recent of2 resultswithin the time period is included. Troponin T, High Sensitivity, 0 Hour <6 <14 ng/L 10/17/2024 11:16 PM EDT [facility] Blood Venous blood specimen / Unknown Venipuncture / Unknown 10/17/2024 10:41 PM EDT 10/17/2024 10:45 PM EDT us Hilton Montelongo MD LAB BLOOD ORDERABLES Final Re sult Performing Organization Address [facility] Co de Phone Number [facility] [address] [place] [address] * (ABNORMAL) CBC (10/17/2024 10:41 PM EDT) WBC Count 10.63(H) 3.70 - 10.30 10*3/uL LAB HEMATOLOGY METHOD 10/17/2024 10:53 PM EDT [facility] RBC Count 3.27(L) 3.90 - 5.20 10*6/uL LAB HEMATOLOGY METHOD 10/17/2024 10:53 PM EDT [facility] HGB 9.7(L) 11.2 - 15.7 g/dL LAB HEMATOLOGY METHOD 10/17/2024 10:53 PM EDT [facility] HCT 28.7(L) 34.0 - 45.0 % LAB HEMATOLOGY METHOD 10/17/2024 10:53 PM EDT [facility] Platelet Count 185 155 - 369 10*3/uL LAB HEMATOLOGY METHOD 10/17/2024 10:53 PM EDT [facility] MCV 88 79 - 98 fL LAB HEMATOLOGY METHOD 10/17/2024 10:53 PM EDT [facility] MCH 29.7 26.0 - 32.0 pg LAB HEMATOLOGY METHOD 10/17/2024 10:53 PM EDT [facility] MCHC 33.8 30.7 - 35.5 g/dL LAB HEMATOLOGY METHOD 10/17/2024 10:53 PM EDT [facility] RDW 15.8(H) 11.5 - 14.5 % LAB HEMATOLOGY METHOD 10/17/2024 10:53 PM EDT [facility] MPV 12.3 8.8 - 12.5 fL LAB HEMATOLOGY METHOD 10/17/2024 10:53 PM EDT [facility] nRBC 0.0 <=0.0 per 100 WBCs LAB HEMATOLOGY METHOD 10/17/2024 10:53 PM EDT [facility] Blood Venous blood specimen / Unknown Venipuncture / Unknown 10/17/2024 10:41 PM EDT 10/17/2024 10:45 PM EDT us Hilton Montelongo MD LAB BLOOD ORDERABLES Final Re sult [facility] [address] [place] [address] * (ABNORMAL) Comprehensive metabolic panel (10/17/2024 10:41 PM EDT) Only the most recent of2 resultswithin the time period is included. Glucose, Plasma 77 74 - 99 mg/dL 10/17/2024 11:16 PM EDT [facility] BUN, Plasma 9 7 - 21 mg/dL 10/17/2024 11:16 PM EDT [facility] Creatinine, Plasma 0.70 0.60 - 1.10 mg/dL 10/17/2024 11:16 PM EDT [facility] BUN/Creatinine Ratio 13 10/17/2024 11:16 PM EDT [facility] Sodium, Plasma 132(L) 136 - 145 mmol/L 10/17/2024 11:16 PM EDT [facility] Potassium, Plasma 2.5(LL) 3.6 - 4.9 mmol/L 10/17/2024 11:16 PM EDT [facility] Chloride, Plasma 88(L) 97 - 107 mmol/L 10/17/2024 11:16 PM EDT [facility] CO2, Plasma 27 22 - 29 mmol/L 10/17/2024 11:16 PM EDT [facility] Anion Gap 17(H) 6 - 16 mmol/L 10/17/2024 11:16 PM EDT [facility] Total Calcium, Plasma 8.4(L) 8.9 - 10.2 mg/dL 10/17/2024 11:16 PM EDT [facility] Total Protein 5.8(L) 6.3 - 7.9 g/dL 10/17/2024 11:16 PM EDT [facility] Albumin, Plasma 3.0(L) 3.5 - 5.2 g/dL 10/17/2024 11:16 PM EDT [facility] AST, Plasma 69(H) 10 - 35 U/L 10/17/2024 11:16 PM EDT [facility] ALT, Plasma 76(H) 10 - 35 U/L 10/17/2024 11:16 PM EDT [facility] Alkaline Phosphatase, Plasma 76 35 - 104 U/L 10/17/2024 11:16 PM EDT [facility] Total Bilirubin, Plasma 0.7 0.2 - 1.1 mg/dL 10/17/2024 11:16 PM EDT [facility] eGFRcr 117.3 mL/min/1.7 3m*2 10/17/2024 11:16 PM EDT [facility] Comment:Reported eGFRcr in m L/min/1.73m2 is based the CKD-EPI 2020 equation that does not use a race coefficient. Blood Venous blood specimen / Unknown Venipuncture / Unknown 10/17/2024 10:41 PM EDT 10/17/2024 10:45 PM EDT us Hilton Montelongo MD LAB BLOOD ORDERABLES Final Re sult Performing Organization Address City/[facility]/ZIP Co de Phone Number [facility] [address] [place] [address] * SARS CoV-2/COVID-19 by PCR (10/17/2024 8:50 PM EDT) [facility] SARS CoV-2/COVID-1 9 RNA PCR Result Not Detected Not Detected 10/19/2024 1:56 AM EDT [facility] Swab Nasopharyngeal structure / Unknown Non-blood Collection / Unknown 10/17/2024 8:50 PM EDT 10/17/2024 9:28 PM EDT Narrative [facility] - 10/19/2024 1:56 AM EDT This test [...] OR DERABLES Final Result Performing Organization Address [facility]/ZIP Co de Phone Number [facility] [address] [place] [address] * Nasopharyngeal Respiratory Panel (10/17/2024 8:50 PM EDT) [facility] Nasopharyngeal Respiratory PCR Interpretation Not Detected for all analytes Not Detected for all analytes 10/17/2024 11:23 PM EDT [facility] Swab Nasopharyngeal structure / Unknown Non-blood Collection / Unknown 10/17/2024 8:50 PM EDT 10/17/2024 9:28 PM EDT Narrative [facility] - 10/17/2024 11:23 PM [...] Respiratory PCR Panel is performed using the [employer] instrument. This test is FDA approved for use with Nasopharyngeal swabs only. This test is used for clinical purposes. It should not be regarded as investigational or for research. The [facility] Clinical Microbiology Laboratory is certified under the Clinical Laboratory Improvement Amendments of 1988 (CLIA-88) as qualified to perform high complexity clinical laboratory testing. Hilton Montelongo MD LAB MICROBIOLOGY - GENERAL OR DERABLES Final Result Performing Organization Address [facility] Co de Phone Number [facility] [address] [place] [address] * Treponema Pallidum (Syphilis) Antibodies with Reflex to RPR and RPR Titer (Those with NO known Syphilis) (10/17/2024 7:31 PM EDT) [facility] Syphilis Antibody (IgG+IgM) Nonreactive Nonreactive 10/17/2024 10:00 PM EDT [facility] Comment:Nonreactive. No sero logic evidence of syphilis. No follow-up necessary unless clinically indicated (e.g., early syphilis). Blood Venous blood specimen / Unknown Venipuncture / Unknown 10/17/2024 7:31 PM EDT 10/17/2024 7:44 PM EDT Hilton Montelongo MD LAB BLOOD ORDERABLES Final Re sult Performing Organization Address [facility] Co de Phone Number [facility] [address] [place] [address] * Type and Screen (10/17/2024 7:31 PM EDT) Pathologist [facility] [place] ABO/Rh O Positive 10/17/2024 7:10 PM EDT [facility] Antibody Screen Negative 10/17/2024 7:10 PM EDT [facility]LO[facility] Specimen Expiration 10/20/2024 23:59 10/17/2024 7:10 PM EDT [facility] Blood Venous blood specimen / Unknown Venipuncture / Unknown 10/17/2024 7:31 PM EDT 10/17/2024 7:44 PM EDT us Hilton Montelongo MD LAB BLOOD BANK TEST ORDERABLE S Final Result BLOOD BANK [address] [place] [address], * XR Chest 1 View (10/17/2024 4:38 [...] DIMER, QUANTITATIVE (10/17/2024 4:05 PM EDT) Pathologist [facility] [place] D Dimer, Quantitative 2.33(H) <0.50 ug/mL FEU LAB COAGULATION METHOD 10/17/2024 4:47 PM EDT [facility] Blood Venous blood specimen / Unknown Venipuncture / Unknown 10/17/2024 4:05 PM EDT 10/17/2024 4:19 PM EDT Narrative [facility] - 10/17/2024 4:47 PM [...] APRN, CNM LAB BLOOD ORDERABLES Final Result [facility] [address] [place] [address] * (ABNORMAL) CBC and Differential (10/17/2024 4:05 PM EDT) Pathologist [facility] [place] WBC Count 9.54 3.70 - 10.30 10*3/uL LAB HEMATOLOGY METHOD 10/17/2024 4:41 PM EDT [facility] RBC Count 3.40(L) 3.90 - 5.20 10*6/uL LAB HEMATOLOGY METHOD 10/17/2024 4:41 PM EDT [facility] HGB 10.2(L) 11.2 - 15.7 g/dL LAB HEMATOLOGY METHOD 10/17/2024 4:41 PM EDT [facility] HCT 29.7(L) 34.0 - 45.0 % LAB HEMATOLOGY METHOD 10/17/2024 4:41 PM EDT [facility] Platelet Count 177 155 - 369 10*3/uL LAB HEMATOLOGY METHOD 10/17/2024 4:41 PM EDT [facility] MCV 87 79 - 98 fL LAB HEMATOLOGY METHOD 10/17/2024 4:41 PM EDT [facility] MCH 30.0 26.0 - 32.0 pg LAB HEMATOLOGY METHOD 10/17/2024 4:41 PM EDT [facility] MCHC 34.3 30.7 - 35.5 g/dL LAB HEMATOLOGY METHOD 10/17/2024 4:41 PM EDT [facility] RDW 15.9(H) 11.5 - 14.5 % LAB HEMATOLOGY METHOD 10/17/2024 4:41 PM EDT [facility] MPV 12.1 8.8 - 12.5 fL LAB HEMATOLOGY METHOD 10/17/2024 4:41 PM EDT [facility] nRBC 0.0 <=0.0 per 100 WBCs LAB HEMATOLOGY METHOD 10/17/2024 4:41 PM EDT [facility] Differential Type Automated LAB HEMATOLOGY METHOD 10/17/2024 4:41 PM EDT [facility] Neutrophils % 63 % LAB HEMATOLOGY METHOD 10/17/2024 4:41 PM EDT [facility] Lymphocytes % 24 % LAB HEMATOLOGY METHOD 10/17/2024 4:41 PM EDT [facility] Monocytes % 11 % LAB HEMATOLOGY METHOD 10/17/2024 4:41 PM EDT [facility] Eosinophils % 1 % LAB HEMATOLOGY METHOD 10/17/2024 4:41 PM EDT [facility] Basophils % 0 % LAB HEMATOLOGY METHOD 10/17/2024 4:41 PM EDT [facility] Immature Granulocytes % 1 % LAB HEMATOLOGY METHOD 10/17/2024 4:41 PM EDT [facility] Neutrophils Absolute 6.06 1.60 - 6.10 10*3/uL LAB HEMATOLOGY METHOD 10/17/2024 4:41 PM EDT [facility] Lymphocytes Absolute 2.31 1.20 - 3.90 10*3/uL LAB HEMATOLOGY METHOD 10/17/2024 4:41 PM EDT [facility] Monocytes Absolute 1.05(H) 0.30 - 0.90 10*3/uL LAB HEMATOLOGY METHOD 10/17/2024 4:41 PM EDT [facility] Eosinophils Absolute 0.06 0.00 - 0.50 10*3/uL LAB HEMATOLOGY METHOD 10/17/2024 4:41 PM EDT [facility] Basophils Absolute 0.01 0.00 - 0.10 10*3/uL LAB HEMATOLOGY METHOD 10/17/2024 4:41 PM EDT [facility] Immature Granulocytes Absolute 0.05 0.00 - 0.06 10*3/uL LAB HEMATOLOGY METHOD 10/17/2024 4:41 PM EDT [facility] Blood Venous blood specimen / Unknown Venipuncture / Unknown 10/17/2024 4:05 PM EDT 10/17/2024 4:24 PM EDT Narrative [facility] - 10/17/2024 4:41 PM EDT Therapeutic decision making should be based on absolute values, rather than percentages. us Job Devine LOAD DROPPER, CNM LAB BLOOD ORDERABLES Final Result [facility] [address] [place] [address] * (ABNORMAL) Uric acid (10/17/2024 4:05 PM EDT) Uric Acid, Plasma 10.1(H) 3.1 - 7.1 mg/dL 10/17/2024 9:51 PM EDT [facility] Blood Venous blood specimen / Unknown Venipuncture / Unknown 10/17/2024 4:05 PM EDT 10/17/2024 4:20 PM EDT us Hilton Montelongo MD LAB BLOOD ORDERABLES Final Re sult [facility] [address] [place] [address] * (ABNORMAL) Lactate dehydrogenase (10/17/2024 4:05 PM EDT) LDH, Plasma 267(H) 116 - 250 U/L 10/17/2024 9:51 PM EDT [facility] Comment:Hemolyzed, result ma y be falsely increased. Blood Venous blood specimen / Unknown Venipuncture / Unknown 10/17/2024 4:05 PM EDT 10/17/2024 4:20 PM EDT us Hilton Montelongo MD LAB BLOOD ORDERABLES Final Re sult Performing Organization Address City/[facility]/ZIP Co de Phone Number [facility] [address] [place] [address] * OB US Detail Anatomy (10/17/2024 1:34 PM EDT) Anatomical Region Laterality Modality Body Ultrasound 10/17/2024 11:2 0 AM EDT Impressions 10/17/2024 2:52 PM EDT The OB Ultrasound you requested has been resulted. Please navigate to the Imaging tab in L2C for review. This message has been generated by the interface. Narrative Procedure Note Melonie Wheeler MD - 10/17/2024 IMPRESSION: The OB Ultrasound you requested has been resulted. Please navigate to theImaging tab in L2C for review. This message has been generated by theinterface. us Dilip Gipson MD IMG OB US PROCEDURES Lena l Result * Chloride, urine, random (09/26/2024 10:07 AM EDT) Chloride, Urine 25 mmol/L 2:03 PM EDT [facility] Urine Urine specimen obtained by clean catch procedure / Unknown Non-blood Collection / Unknown 09/26/2024 10:07 AM EDT 09/26/2024 10:07 AM EDT us Bill Patrick MD LAB URINE ORDERABLES Final Resul t [facility] [address] [place] [address] * Sodium, urine, random (09/26/2024 10:02 AM EDT) Sodium, Urine 110 mmol/L 09/26/2024 11:55 AM EDT [facility] Urine Urine specimen obtained by clean catch procedure / Unknown Non-blood Collection / Unknown 09/26/2024 10:02 AM EDT 09/26/2024 10:02 AM EDT us Bill Patrick MD LAB URINE ORDERABLES Final Resul t Performing Organization Address City/[facility] Co de Phone Number [facility] [address] [place] [address] * Potassium, urine, random (09/26/2024 10:02 AM EDT) Potassium, Urine 43 mmol/L 09/26/2024 11:55 AM EDT [facility] Urine Urine specimen obtained by clean catch procedure / Unknown Non-blood Collection / Unknown 09/26/2024 10:02 AM EDT 09/26/2024 10:02 AM EDT us Bill Patrick MD LAB URINE ORDERABLES Final Resul t Performing Organization Address [facility] de Phone Number [facility] [address] [place] [address] * Osmolality, urine (09/26/2024 10:02 AM EDT) Osmolality, Urine 404 50 - 1,200 mOsm/kg 09/26/2024 1:48 PM EDT [facility] Urine Urine specimen obtained by clean catch procedure / Unknown Non-blood Collection / Unknown 09/26/2024 10:02 AM EDT 09/26/2024 10:02 AM EDT us Bill Patrick MD LAB URINE ORDERABLES Final Resul t Performing Organization Address [facility] de Phone Number [facility] [address] [place] [address] * SSA 52 and 60 (Ro) (YARA) Antibodies, IgG (09/26/2024 9:32 AM EDT) [id number] ([id number]) (YARA) Antibody, IgG 2 0 - 40 AU/mL 09/28/2024 5:47 PM EDT [facility] (TERRI) SSA-60 (RO60) (YARA) Antibody, IgG 0 0 - 40 AU/mL 09/28/2024 5:47 PM EDT [facility] (TERRI) Serum 09/26/2024 9:32 AM EDT 09/26/2024 9:32 AM EDT Narrative [facility] (TERRI) - 09/28/2024 5:47 PM EDT [...] AU/mL or Greater .......... Positive Performed By: [facility] [address] [place] [address] Poultry Processing Supervisor: Brandon Bell MD, PhD CLIA Number: [id number] us Bill Patrick MD LAB REF LAB BLOOD AND FLUID ORD Final Result [facility] [employer] (TERRI) [address] [place] [address] * SSB (LA) (YARA) ANTIBODY, IGG (09/26/2024 9:32 AM EDT) SSB (LA) (YARA) Antibody, IgG 0 0 - 40 AU/mL 09/28/2024 5:47 PM EDT [facility] (TERRI) Serum Venous blood specimen / Unknown 09/26/2024 9:32 AM EDT 09/26/2024 9:32 AM EDT Narrative [facility] JULIEN SORENSEN) - 09/28/2024 5:47 PM EDT [...] (PSS) also have this antibody. Performed By: [facility] [address] [place] [address] Poultry Processing Supervisor: Brandon Bell MD, PhD CLIA Number: [id number] Bill Patrick MD LAB BLOOD ORDERABLES Final Resul t Performing Organization Address City/[facility]/ZIP Co de Phone Number [facility] FRANCHESCA) [address] [place] [address] * Rheumatoid factor, plasma (09/26/2024 9:32 AM EDT) Rheumatoid Factor, Plasma <10 <14 IU/mL 09/26/2024 1:49 PM EDT [facility] Blood Venous blood specimen / Unknown Venipuncture / Unknown 09/26/2024 9:32 AM EDT 09/26/2024 9:32 AM EDT Bill Patrick MD LAB BLOOD ORDERABLES Final Resul t [facility] [address] [place] [place] [address] * Antinuclear Antibody (JEFFERY), HEp-2, IgG (09/26/2024 9:32 AM EDT) JEFFERY INTERPRETIVE COMMENT See Note 09/28/2024 5:13 PM EDT [facility] (TERRI) Anti Nuc Ab Screen <1:80 <1:80 09/28/2024 5:13 PM EDT [facility] (TERRI) Blood Venous blood specimen / Unknown Venipuncture / Unknown 09/26/2024 9:32 AM EDT 09/26/2024 9:32 AM EDT Narrative [facility] (TERRI) - 09/28/2024 5:13 PM [...] rings, and cytoplasmic speckled patterns. Performed By: [facility] [address] [place] [address] Poultry Processing Supervisor: Brandon Bell MD, PhD CLIA Number: [id number] us Bill Patrick MD LAB BLOOD ORDERABLES Final Resul t [facility] [employer]) [address] [place] [address] * (ABNORMAL) Osmolality (09/26/2024 9:32 AM EDT) Osmolality, Serum 273(L) 275 - 295 mOsm/Kg 09/26/2024 2:10 PM EDT [facility] Blood Venous blood specimen / Unknown Venipuncture / Unknown 09/26/2024 9:32 AM EDT 09/26/2024 9:32 AM EDT Bill Patrick MD LAB BLOOD ORDERABLES Final Resul t [facility] [address] [place] [address] * (ABNORMAL) Renal function panel (09/26/2024 9:32 AM EDT) Pathologist [facility] [place] Glucose, Plasma 87 74 - 99 mg/dL 09/26/2024 12:24 PM EDT [facility] BUN, Plasma 5(L) 7 - 21 mg/dL 09/26/2024 12:24 PM EDT [facility] Creatinine, Plasma 0.72 0.60 - 1.10 mg/dL 09/26/2024 12:24 PM EDT [facility] BUN/Creatinine Ratio 7 09/26/2024 12:24 PM EDT [facility] Sodium, Plasma 135(L) 136 - 145 mmol/L 09/26/2024 12:24 PM EDT [facility] Potassium, Plasma 3.1(L) 3.6 - 4.9 mmol/L 09/26/2024 12:24 PM EDT [facility] Chloride, Plasma 95(L) 97 - 107 mmol/L 09/26/2024 12:24 PM EDT [facility] CO2, Plasma 26 22 - 29 mmol/L 09/26/2024 12:24 PM EDT [facility] Anion Gap 14 6 - 16 mmol/L 09/26/2024 12:24 PM EDT [facility] Total Calcium, Plasma 9.4 8.9 - 10.2 mg/dL 09/26/2024 12:24 PM EDT [facility] Phosphorus, Plasma 3.5 2.5 - 4.5 mg/dL 09/26/2024 12:24 PM EDT [facility] Albumin, Plasma 3.6 3.5 - 5.2 [...] BLOOD ORDERABLES Final Resul t [facility] [address] [place] [address] * Adult Patch Monitor - 7 Day [...] on Day 3 / 08:47:57 pm SVE(s): Pierre Part was 3.46 %, [id number] total SVE(s) SV Arrhythmia(s): 21 events, longest event 7 beats on Day :05:26 am, fastest event 111 bpm on Day :02:39 am PVC(s): Pierre Part was 0.03 %, 189 total PVC(s), 1 [...] ORDERABLES Fin al Result Performing Organization Address City/[facility] de Phone Number SUNQUEST * Hepatitis C Antibody (01/22/2019 9:57 AM EST) Hepatitis C Antibody NEGATIVE Reference Range: Negative [facility]QUEST 01/22/2019 9:57 AM EST 01/22/2019 12:12 PM EST Pradip Damico APRN, CNM LAB BLOOD ORDERABLES Fin al Result Performing Organization Address City/[facility] Co de Phone Number SUNQUEST from Last 3 Months or Most Recently Relevant to Health Maintenance Insurance [employer] [facility] MEDICAID Advance Directives * Full Code (Latest Code Status on File) Date Activated Date Inactivated Comments 10/17/2024 7:12 PM 10/20/2024 12:16 PM Question Answer Comments I have reviewed the capacity from the link above and, if needed, have updated to appropriate status: Yes Care Teams Smoking Pipe Driller And Threader Relationship Specialty Start Date End Date Norma Friedman APRN [address] [place] [address] PCP - General 09/23/24 Lizz Tirnh, RN [facility] Registered Nurse Cardiology 09/26/24
[2024-10-25 09:40] LABS: Albumin Level 2.9 g/dl (3.5-5.0); Chloride 108 mmol/L (98-107)
[2024-10-25 09:40] LABS: Albumin Level 2.9 g/dl (3.5-5.0)
[2024-10-25 09:41] LABS: Potassium 4.1 mmoL/L (3.5-5.1); Sodium 137 mmol/L (136-145)
[2024-10-25 09:42] LABS: Bilirubin,Unconjugated 0.5 mg/dL (0.0-1.1)
[2024-10-25 09:43] LABS: Alanine Aminotransferase 20 U/L (12-78); Anion Gap 11.1 mEq/L (5-15); Aspartate Amino Transferase 34 U/L (14-36); Blood Urea Nitrogen 4 mg/dl (7-17); Carbon Dioxide 22 mmol/L (22.0-30.0); Creatinine,Serum 0.50 mg/dl (0.52-1.04); Estimated Glomerular Filt Rate 142 ml/min (>60); GFR (African American) 172 ML/MIN (>60)
[2024-10-25 09:43] LABS: Alanine Aminotransferase 20 U/L (12-78); Alkaline Phosphatase 81 U/L (38-126); Aspartate Amino Transferase 32 U/L (14-36); Bilirubin,Direct 0.1 mg/dl (0.0-0.4); Bilirubin,Indirect 0.5 mg/dL (0.0-0.9); Bilirubin,Total 0.6 mg/dl (0.2-1.3); Total Protein,Serum 5.7 g/dl (6.3-8.2)
[2024-10-25 09:44] LABS: Albumin/Globulin Ratio 1.0 (1.1-1.8); Alkaline Phosphatase 81 U/L (38-126); Bilirubin,Total 0.7 mg/dl (0.2-1.3); Calcium 8.7 mg/dl (8.4-10.2); Globulin 2.8 g/dL (1.3-3.2); Glucose 73 mg/dl (74-100); Magnesium 1.5 mg/dl (1.6-2.3); Phosphorous 3.9 mg/dl (2.5-4.5); Total Protein,Serum 5.7 g/dl (6.3-8.2)
[2024-10-26 19:12] LABS: Calcium, Ionized 5.0 mg/dL (4.5-5.6)
== END 2024-10-25 23:59 | disposition home or self-care (01) ==
PROVIDERS: Nurse Practitioner Family; PCP Nurse Practitioner Family; Visit Provider Nurse Practitioner Obstetrics & Gynecology
DX: T80.219D Unspecified infection due to central venous catheter, subsequent encounter (principal); E87.6 Hypokalemia
CPT/HCPCS: 36415; 80053; 80076; 82239; 82330; 83735; 84100; 87040; 96523

== ENCOUNTER 2024-10-28 07:03 | Outpatient (CLI) | payer OTHER, SELFPAY ==
--- OUTSIDE RECORDS SUMMARY | 2024-08-29 10:00 | XMS_ITS | Encounter Summary ---
[facility] Organization [facility] Address [address] [place] [address] Care Team Providers Care Production Superintendent Name Role Phone IvyKade goldbergjoseseven JOLENE Primary Care Provider + [phone] Reason for Visit * Reason Comments Problem Encounter Details Date Type Department Care Team (Late st Contact Info) Description 08/29/2024 10:00 AM EDT Routine [facility] OBGYN [address] [place] [address] Staci Jain MD [address] [place] [address] [place]: 26w4d Social History Tobacco Use Types Packs/Day Years Used Date Smoking Tobacco: Never Smokeless Tobacco: Never Alcohol Use Standard Drinks/Week Comments Never 0 (1 standard drink = 0.6 oz pur e alcohol) [facility] Utilities Answer Date Recorded In the past 12 months has [employer], gas, oil, or water [employer] threatened to shut off services in your [...] hard at all 05/28/2024 [facility] [place] [facility] - Occupational Stress Questionnaire Answer [...] GED or equivalent No 05/28/2024 Preferred Language Wolof 05/28/2024 PHQ-2 Answer Date Recorded Patient Health [...] EST Office Visit [facility] GASTROENTEROLOGY [address] [address] Robbin Escalante MD [address] [address] documented as of this encounter Procedures Procedure [...] 08/30/2024 6:09 AM EDT Performed at: [address] [id number] Edm Operator: Kevin Harman MD, Phone: [phone] Patient Fasting: N us Staci Jain MD LAB BLOOD ORDERABLES Final Result [facility] (AMBULATORY) [address] [place] [address], [facility] [address] [place] [address], * (ABNORMAL) Comprehensive Metabolic Panel (08/29/2024 11:05 [...] 11:0 5 AM EDT 08/29/2024 Narrative [facility] (AMBULATORY) - 08/30/2024 6:09 AM EDT Performed at: 01 - [place] [address] [address] [place], [place] [id number] Edm Operator: Kevin Harman MD, Phone: [phone] Patient Fasting: N Staci Jain MD LAB BLOOD ORDERABLES Final Result Performing Organization Address City/[facility]/ZIP Co de Phone Number [facility] ([facility]ORY) [address] [place] [address], [place] [phone] [facility] [address] [place] [address], [place] [phone] * (ABNORMAL) POC Urinalysis Dipstick (08/29/2024 10:13 AM EDT) Glucose, UA Negative Negative mg/dL [facility] Protein, POC Trace(A) Negative mg/dL [facility] Urine 08/29/2024 10:1 3 AM EDT us Staci Jain MD POINT OF CARE TEST OR DERABLES Final Result Performing Organization Address City/[facility]/ZIP Co de Phone Number [facility]
[address] [place] [address], documented in this encounter Visit Diagnoses Diagnosis [...] documented as of this encounter Care Teams Production Superintendent Relationship Specialty Start Date End Date Norma Friedman APRN [address] [place] G[address] RAFAELA APPIAH [address] PCP - General Family Medicine 05/14/24 documented as of this encounter
--- OUTSIDE RECORDS SUMMARY | 2024-09-23 10:00 | XMS_ITS | Encounter Summary ---
Author Organization [facility] Address [address] [place] [address] Care Team Providers Care Director Of Consulting Services Name Role Phone Norma Friedman JOLENE Primary Care Provider +1- [phone] Reason for Referral * Consultation (Routine) - Closed Specialty Diagnoses / Procedures Referred By Contac t Referred To Contact Cardiology Diagnoses Supervision of high risk , antepartum Cardiac arrhythmia, unspecified cardiac arrhythmia type Liborio Weller MD [address] [facility] [address] [place] [address] Phone: tel: fax: Referral ID Status Reason Start Date Expiration Date V isits Requested Visits Authorized [id number] Closed Specialty Services Required 09/23/2024 03/25/2026 1 1 Encounter Details Date Type Department Care Team ([facility] st Contact Info) Description 09/23/2024 10:00 AM EDT Office Visit Medical Office Building Obstetrics and Gynecology [address] [facility], [address] [place] [address] Liborio Weller MD [address] [facility] 140 [place] [address] Supervision of high risk , [...] more drinks on one occasion? Never 09/23/2024 [place] Depression Scale Answer Date Recorded [place] Depression Scale Total 0 09/23/2024 The thought [...] last week on 09/19. She presented to [facility] for chest pain and palpitations. She [...] 09/25 and has otherwise never seen a compliance director. She has never seen a dray truck driver. She also reports during this admission she [...] None N JAGDISH Complications: Potassium (K) deficiency [place] Depression Scale Total: 0 Gynecology History No [...] has a past surgical history that includes [place] tooth extraction (N/A); section, low transverse (N/A); [...] prescription(s): ferosul, potassium chloride cr, prenat mv-min w/xw-jujlcg-zha, and thiamine. Allergies Allergies[1] Review of Systems [...] Had tachycardia and arrhythmia during admission to [facility] on 09/19 HR to 170s-180s with [...] other day Has never been evaluated by compliance director for salt wasting nephropathy PLAN Has nephrology [...] the patient, and documenting this visit. (Est [id number]) Brandee Pringle MD Obstetrics & Gynecology, PGY-2 [...] Encounter [facility] [address] [place] [address] 11/14/2024 11:15 AM EDT Visit Medical Office Building Obstetrics and Gynecology [address] [facility], [address] [place] [address] Nneka Gipson MD [address] [place] [address] 12/25/2024 1:00 PM EST Office Visit [facility] [place] Nephrology, Bone & Mineral Metabolism [address] [facility], [address] [place] [address] Scheduled Referrals Name Type Priority [...] Ketones, Urine 40(A) Negative mg/dL POCT Specific [place], Urine 1.015 POCT Blood, Urine Negative Negative POCT pH, Urine >=9.0(A) 5.0 to 8.0 POCT Protein, Urine 100(A) Negative mg/dL POCT Urobilinogen, Urine 0.2 0.2, 1 E.U./dL POCT Nitrite, Urine Negative Negative POCT Leukocyte Esterase, Urine Negative Negative Test Strip Lot Number [id number] Test Strip Lot Expiration 07/2025 Urine Urine [...] of this encounter Care Teams Director Of Consulting Services Relationship Specialty Start Date End Date Norma Friedman APRN [address] [place] [address] PCP - General 09/23/24 documented as of this encounter
--- OUTSIDE RECORDS SUMMARY | 2024-09-25 14:20 | XMS_ITS | Encounter Summary ---
Author Organization Healthcare Address [address] [place] [address] Care Team Providers Care Barrel Liner Name Role Phone Norma Friedman JOLENE Primary Care Provider +1- [phone] Reason for Referral * Consultation (Routine) - Authorized Specialty Diagnoses / Procedures Referred By Tarik pedersen Referred To Contact Diagnoses Hypokalemia Bill Patrick MD [address] [place] [phone] Phone: tel: fax: Referral ID Status Reason Start Date Expiration Date V isits Requested Visits Authorized [id number] Authorized 09/25/2024 03/27/2026 1 1 * Imaging (Routine) - Authorized Specialty Diagnoses / Procedures Referred By Tarik pedersen Referred To Contact Radiology Diagnoses Hypokalemia Procedures US Renal Complete Bill Patrick MD [address] [place] [phone] Phone: tel: fax: Referral ID Status Reason Start Date Expiration Date V isits Requested Visits Authorized [id number] Authorized 09/25/2024 03/27/2026 1 1 Reason for Visit * Reason Comments Consult * Consultation (Routine) - Closed Specialty Diagnoses / Procedures Referred By Tarik pedersen Referred To Contact Nephrology Diagnoses Hypokalemia Liborio Weller MD [address] [address] Phone: tel: fax: [facility] Nephrology, Bone & Mineral Metabolism [address] , [address] [place] [address] Phone: tel: fax: Referral ID Status Reason Start Date Expiration Date V isits Requested Visits Authorized [id number] Closed Specialty Services Required 09/14/2024 03/16/2026 1 1 Encounter Details Date Type Department Care Team (Late st Contact Info) Description 09/25/2024 2:20 PM EDT Office Visit [facility] Nephrology, Bone & Mineral Metabolism [address] , [address] [place] [address] Bill Patrick MD [address] [place] [address] Hypokalemia (Primary Dx) Social History [...] more drinks on one occasion? 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 Also notes she has [...] below to be done before next visit Lyudmial Heller MD Orders Placed This Encounter Procedures [...] Date SECTION, LOW TRANSVERSE N/A section from [facility] DILATION AND CURETTAGE OF UTERUS N/A Dilation and curettage from [facility] WISDOM TOOTH EXTRACTION N/A Oral Surgery Tooth Extraction [place] [facility] from [facility] [3] Family History Problem Relation Name Age [...] mouth 3 times a day.) Prenat MV-Min w/Es-[id number]-[id number] ( COMPLETE PO) thiamine (Vitamin B-1) 100 [...] Encounter [facility] [address] [place] [address] 11/14/2024 11:15 AM EDT Visit Medical [facility] Obstetrics and Gynecology [address], [address] [place] [address] Nneka Gipson MD [address] [place] [id number] 12/25/2024 1:00 PM EST Office Visit [facility] Nephrology, Bone & Mineral Metabolism [address] , [address] [place] [address] Scheduled Orders Name Type Priority [...] Chloride, Urine 25 mmol/L 2:03 PM EDT [facility] Urine Urine specimen obtained by clean catch procedure / Unknown Non-blood Collection / Unknown 09/26/2024 10:07 AM EDT 09/26/2024 10:07 AM EDT us Bill Patrick MD LAB URINE ORDERABLES Final Resul t [facility] [address] [place] [address] * Protein, Random, Urine with Creatinine (09/26/2024 10:03 AM EDT) Protein, Urine 26 mg/dL 09/26/2024 12:08 PM EDT [facility] Creatinine, Urine 199 mg/dL 09/26/2024 12:08 PM EDT [facility] Protein/Creati nine Ratio 0.1 mg/mg Creat 09/26/2024 12:08 PM EDT [facility] Urine Urine specimen obtained by clean catch procedure / Unknown Non-blood Collection / Unknown 09/26/2024 10:03 AM EDT 09/26/2024 10:04 AM EDT us Bill Patrick MD LAB URINE ORDERABLES Final Resul t Performing Organization Address City/[facility]/ZIP Co de Phone Number [facility] [address] [place] [address] * Potassium, urine, random (09/26/2024 10:02 AM EDT) Potassium, Urine 43 mmol/L 09/26/2024 11:55 AM EDT [facility] Urine Urine specimen obtained by clean catch procedure / Unknown Non-blood Collection / Unknown 09/26/2024 10:02 AM EDT 09/26/2024 10:02 AM EDT us Bill Patrick MD LAB URINE ORDERABLES Final Resul t Performing Organization Address City/[facility] de Phone Number [facility] [address] [place] [address] * Osmolality, urine (09/26/2024 10:02 AM EDT) Osmolality, Urine 404 50 - 1,200 mOsm/kg 09/26/2024 1:48 PM EDT [facility] Urine Urine specimen obtained by clean catch procedure / Unknown Non-blood Collection / Unknown 09/26/2024 10:02 AM EDT 09/26/2024 10:02 AM EDT us Bill Patrick MD LAB URINE ORDERABLES Final Resul t Performing Organization Address City/[facility]/ZIP Co de Phone Number [facility] [address] [place] [address] * Sodium, urine, random (09/26/2024 10:02 AM EDT) Sodium, Urine 110 mmol/L 09/26/2024 11:55 AM EDT [facility] Urine Urine specimen obtained by clean catch procedure / Unknown Non-blood Collection / Unknown 09/26/2024 10:02 AM EDT 09/26/2024 10:02 AM EDT Bill Patrick MD LAB URINE ORDERABLES Final Resul t [facility] [address] [place] [address] * Antinuclear Antibody (JEFFERY), HEp-2, IgG (09/26/2024 9:32 AM EDT) JEFFERY INTERPRETIVE COMMENT See Note 09/28/2024 5:13 PM EDT [facility] ([facility]) Anti Nuc Ab Screen <1:80 <1:80 09/28/2024 5:13 PM EDT [facility] ([facility]) Blood Venous blood specimen / Unknown Venipuncture / Unknown 09/26/2024 9:32 AM EDT 09/26/2024 9:32 AM EDT Narrative [email or web address] ([facility]) - 09/28/2024 5:13 PM EDT INTERPRETIVE INFORMATION: [...] rings, and cytoplasmic speckled patterns. Performed By: [facility] [address] [place] [address] Rate Analyst: Brandon Bell MD, PhD CLIA Number: [id number] Bill Patrick MD LAB BLOOD ORDERABLES Final Resul t [facility] [address] [place] [address] * Rheumatoid factor, plasma (09/26/2024 9:32 AM EDT) Rheumatoid Factor, Plasma <10 <14 IU/mL 09/26/2024 1:49 PM EDT [facility] Blood Venous blood specimen / Unknown Venipuncture / Unknown 09/26/2024 9:32 AM EDT 09/26/2024 9:32 AM EDT Bill Patrick MD LAB BLOOD ORDERABLES Final Resul t [facility] [address] [place] [address] * SSB (LA) (YARA) ANTIBODY, IGG (09/26/2024 9:32 AM EDT) SSB (LA) (YARA) Antibody, IgG 0 0 - 40 AU/mL 09/28/2024 5:47 PM EDT [facility] Serum Venous blood specimen / Unknown 09/26/2024 9:32 AM EDT 09/26/2024 9:32 AM EDT Narrative [facility] [employer] [facility] - 09/28/2024 5:47 PM EDT INTERPRETIVE INFORMATION: [...] (PSS) also have this antibody. Performed By: [facility] [address] [place] [address] Rate Analyst: Brandon Bell MD, PhD CLIA Number: [id number] Bill Patrick MD LAB BLOOD ORDERABLES Final Resul t [facility] ([facility]) [address] [place] [address] * SSA 52 and 60 (Ro) (YARA) Antibodies, IgG (09/26/2024 9:32 AM EDT) SSA-52 (RO52) (YARA) Antibody, IgG 2 0 - 40 AU/mL 09/28/2024 5:47 PM EDT [email or web address] ([facility]) SSA-60 (RO60) (YARA) Antibody, IgG 0 0 - 40 AU/mL 09/28/2024 5:47 PM EDT [facility] ([facility]) Serum 09/26/2024 9:32 AM EDT 09/26/2024 9:32 AM EDT Narrative [email or web address] ([facility]) - 09/28/2024 5:47 PM EDT INTERPRETIVE INFORMATION: [...] AU/mL or Greater .......... Positive Performed By: [facility] [address] [place] [address] Rate Analyst: Brandon Bell MD, PhD CLIA Number: [id number] Bill Patrick MD LAB REF LAB BLOOD AND FLUID ORD Final Result [facility] ([facility]) [address] [place] [address] * (ABNORMAL) Renal function panel (09/26/2024 9:32 AM EDT) [facility] Glucose, Plasma 87 74 - 99 mg/dL [...] ORDERABLES Final Resul t Performing Organization Address City/[facility] de Phone Number [facility] [address] [place] [address] * (ABNORMAL) Osmolality (09/26/2024 9:32 AM EDT) Osmolality, Serum 273(L) 275 - 295 mOsm/Kg 09/26/2024 2:10 PM EDT [facility] Blood Venous blood specimen / Unknown Venipuncture / Unknown 09/26/2024 9:32 AM EDT 09/26/2024 9:32 AM EDT us Bill Patrick MD LAB BLOOD ORDERABLES Final Resul t Performing Organization Address [facility] de Phone Number [facility] [address] [place] [address] documented in this encounter Visit Diagnoses Diagnosis Hypokalemia- Primary Hypopotassemia documented in this encounter Additional Health Concerns Assessment Noted Time A fall risk assessment has been complete d for the patient 09/25/2024 3:05 PM EDT A Body Mass Index follow-up plan has been documented for the patient 10/05/2024 8:54 PM EDT documented as of this encounter Care Teams Barrel Liner Relationship Specialty Start Date End Date Norma Friedman APRN [address] [place] [address] PCP - General 09/23/24 documented as of this encounter
--- OUTSIDE RECORDS SUMMARY | 2024-09-26 08:00 | XMS_ITS | Encounter Summary ---
Author Organization [facility] Address [address] [place] [address] Care Team Providers Care Straight Line Press Setter Name Role Phone Norma Friedman SOLUTION SPECIALIST Primary Care Provider +1- [phone] Lizz Trinh RN Unavailable Unavailable Reason for Referral * Consultation (Routine) - Closed Specialty Diagnoses / Procedures Referred By Tarik t Referred To Contact Diagnoses Palpitations Syncope and collapse Nneka Vasquez MD [address] [place] [phone] Phone: tel: fax: Referral ID Status Reason Start Date Expiration Date Visits Re quested Visits Authorized [id number] Closed 09/26/2024 03/28/2026 1 1 * Cardiac Stress Testing (Routine) - Closed Specialty Diagnoses / Procedures Referred By Contac t Referred To Contact Cardiology Diagnoses Palpitations Syncope and collapse Procedures Adult Patch Monitor - 7 Day Nneka Vasquez MD [address] [place] [phone] Phone: tel: fax: Referral ID Status Reason Start Date Expiration Date Visits Re quested Visits Authorized [id number] Closed 09/26/2024 03/28/2026 1 1 Reason for Visit * Consultation (Routine) - Closed Specialty Diagnoses / Procedures Referred By Contac t Referred To Contact Cardiology Diagnoses Supervision of high risk , antepartum Cardiac arrhythmia, unspecified cardiac arrhythmia type Allison ParkLiborio Preciado MD [address] [address] Phone: tel: fax: Referral ID Status Reason Start Date Expiration Date V isits Requested Visits Authorized [id number] Closed Specialty Services Required 09/23/2024 03/25/2026 1 1 Encounter Details Date Type Department Care Team (Late st Contact Info) Description 09/26/2024 8:00 AM EDT Office Visit [facility] [place] [address] [facility] [address] [facility], [address] [place] [address] Nneka Vasquez MD [address] [place] [address] Syncope and collapse (Primary Dx); [...] more drinks on one occasion? Never 09/23/2024 [place] Depression Scale Answer Date Recorded [place] Depression Scale Total 0 09/23/2024 The thought [...] Vasquez MD - 09/26/2024 8:00 AM EDT [place] [facility] ([facility]) Problem List #Hypomagnesium and Hypokalemia -- [...] home with no plans. 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 night monitor today to evaluate for abnormal rhythms [...] TOOTH EXTRACTION N/A Oral Surgery Tooth Extraction [place] [employer] from [employer] [3] Social History Socioeconomic History Marital status: [...] Resource Strain: Low Risk (05/28/2024) Received from [facility] Overall Financial Resource Strain (CARDIA) Difficulty of Paying Living Expenses: Not hard at all Food Insecurity: No Food Insecurity (05/28/2024) Received from [facility] Hunger Vital Sign Within the past 12 months, you worried that your food would run out before you got the money to buymore.: Never true Within the past 12 months, the food you bought just didn't last and you didn't have money to get more.: Never true Transportation Needs: No Transportation Needs (05/28/2024) Received from [facility] PRAPARE - Transportation In the past 12 months, has lack of transportation kept you from medical appointments or from getting medications?: No In the past 12 months, has lack of transportation kept you from meetings, work, or from getting things needed for daily living?: No Physical Activity: Sufficiently Active (05/28/2024) Received from [facility] Exercise Vital Sign On average, how many days per week do you engage in moderate to strenuous exercise (like a brisk walk)?: 5 days On average, how many minutes do you engage in exercise at this level?: 40 min Stress: Stress Concern Present (05/27/2024) Received from [facility] [place] [employer] - Occupational Stress Questionnaire Feeling of Stress : To some extent Social Connections: Not At Risk (05/28/2024) Received from [facility] Family and Community Support If for any reason you need help with day-to-day activities such as bathing, preparing meals, shopping, managing finances, etc., do you get the help you need?: I don't need any help How often do you feel lonely or isolated from those around you?: Sometimes Intimate Partner Violence: Not At Risk (08/19/2024) Received from [facility] Abuse Screen Feels Unsafe at Home or Work/School: no Feels Threatened by Someone: no Does Anyone Try to Keep You From Having Contact with Others or Doing Things Outside Your Home?: no Physical Signs of Abuse Present: no Housing Stability: Not At Risk (08/20/2024) Received from [facility] Housing Stability Current Living Arrangements: home [...] Encounter [facility] Labor and Delivery [address] [place] [address] 11/14/2024 11:15 AM EDT Visit Medical Office Building Obstetrics and Gynecology [address], [address] [place] [phone] Nneka Gpison MD [address] [place] [address] 12/25/2024 1:00 PM EST Office Visit [facility] Nephrology, Bone & Mineral Metabolism [address], [address] [place] [phone] Scheduled Referrals Name Type Priority Associated Diagnoses [...] on Day 3 / 08:47:57 pm SVE(s): [place] was 3.46 %, [address] total SVE(s) SV Arrhythmia(s): 21 events, longest event 7 beats on Day 03:05:26 am, fastest event 111 bpm on Day 02:02:39 am PVC(s): [place] was 0.03 %, 189 total PVC(s), 1 [...] QTC Interval 441 ms MUSE ECG P [place] 60 degrees MUSE ECG R [place] 36 degrees MUSE ECG T Wave [place] 55 degrees MUSE ECG Diagnosis Normal sinus rhythm with sinus arrhythmia MUSE ECG Diagnosis Normal ECG MUSE ECG Diagnosis MUSE ECG Diagnosis Confirmed by Abad South ([id number]) on 09/26/2024 12:13:59 PM MUSE ECG 09/26/2024 [...] documented as of this encounter Care Teams Straight Line Press Setter Relationship Specialty Start Date End Date Norma Friedman APRN [address] [place] [address] PCP - General 09/23/24 Lizz Trinh, RN [facility] Registered Nurse Cardiology 09/26/24 documented as of this encounter
--- OUTSIDE RECORDS SUMMARY | 2024-09-26 09:06 | XMS_ITS | Encounter Summary ---
Author Organization [facility] Address [address] [place] [address] Care Team Providers Care Machine Engineer Name Role Phone Elder Kadedev Coy PARTS PERSON Primary Care Provider +1- [phone] Lizz Trinh RN Unavailable Unavailable Reason for Referral * Cardiac Stress Testing (Routine) - Closed Specialty Diagnoses / Procedures Referred By Tarik pedersen Referred To Contact Cardiology Diagnoses Palpitations Syncope and collapse Procedures Adult Patch Monitor - 7 Day Nneka Vasquez MD [address] [place] [address] Phone: tel: fax: Referral ID Status Reason Start Date Expiration Date Visits Re quested Visits Authorized [id number] Closed 09/26/2024 03/28/2026 1 1 Reason for Visit * Cardiac Stress Testing (Routine) - Closed Specialty Diagnoses / Procedures Referred By Tarik pedersen Referred To Contact Cardiology Diagnoses Palpitations Syncope and collapse Procedures Adult Patch Monitor - 7 Day Nneka Vasquez MD [address] [place] [address] Phone: tel: fax: Referral ID Status Reason Start Date Expiration Date Visits Re quested Visits Authorized [id number] Closed 09/26/2024 03/28/2026 1 1 Encounter Details Date Type Department Care Team (Latest Contact Info) Description 09/26/2024 9:06 AM EDT - 09/26/2024 11:59 PM EDT Hospital Encounter Medical Office Building Cardiac Diagnostic Testing Medical Office Building Echo Lab [address] [facility], [address] [place] [address] Palpitations; Syncope and collapse Discharge [...] more drinks on one occasion? Never 09/23/2024 [place] Depression Scale Answer Date Recorded [place] Depression Scale Total 0 09/23/2024 The thought [...] tablet by mouth daily. 09/12/2024 Prenat MV-Min w/Nd-Rfyacx-RTF ( COMPLETE PO) 12/25/2018 thiamine (Vitamin B-1) [...] Upcoming Encounters Date Type Department Care Team ([facility] st Contact Info) Description 10/31/2024 Hospital Encounter [facility] Labor and Delivery [address] [place] [address] 11/14/2024 11:15 AM EDT Visit Medical Office Building Obstetrics and Gynecology [address] [facility] [facility], [address] [place] [address] Nneka Gipson MD [address] [place] [address] 12/25/2024 1:00 PM EST Office Visit [facility] Nephrology, Bone & Mineral Metabolism [address] [facility], [address] [place] [address] documented as of this encounter [...] on Day 3 / 08:47:57 pm SVE(s): [place] was 3.46 %, [address] total SVE(s) SV Arrhythmia(s): 21 events, longest event 7 beats on Day :05:26 am, fastest event 111 bpm on Day :02:39 am PVC(s): [place] was 0.03 %, 189 total PVC(s), 1 [...] as of this encounter Care Teams Machine Engineer Relationship Specialty Start Date End Date Norma Friedman APRN [address] [place] [address] PCP - General 09/23/24 Lizz Trinh, RN [facility] Registered Nurse Cardiology 09/26/24 documented as of this encounter
--- OUTSIDE RECORDS SUMMARY | 2024-10-17 09:15 | XMS_ITS | Encounter Summary ---
Author Organization Healthcare Address [address] [place] [address] Care Team Providers Care Metal Dresser Name Role Phone Elder Kadedev Coy MACHINE STAKER Primary Care Provider +1- [phone] Lizz Trinh RN Unavailable Unavailable Reason for Visit * Auth/Cert (Routine) Specialty Diagnoses / Procedures Referred By Tarik pedersen Referred To Contact Diagnoses Hypokalemia Electrolyte abnormality Hilton Montelongo MD [address] [facility] [address] [place] [address] Phone: tel: fax: [facility] [address] [place] [address] Phone: tel: fax: Referral ID Status Reason Start Date Expiration Date Visits Re quested Visits Authorized [id number] 1 1 Encounter Details Date Type Department Care Team (Latest Contact Info) Description 10/17/2024 9:15 AM EDT Routine Medical Office Building Obstetrics and Gynecology [address] [facility], [address] [place] [address] Nneka Gipson MD [address] [place] [address] NST (non-stress test) nonreactive (Primary [...] more drinks on one occasion? Never 09/23/2024 Harmony Depression Scale Answer Date Recorded Harmony Depression Scale Total 0 09/23/2024 The thought [...] Brandan with primary OB Dr Marin in [facility] O+/RI/HCV-/HIV- Needs HBV and syphilis G/C negative [...] Kaitlyn Richter MD PGY-2, Obstetrics and Gynecology [facility] Cosigned by Nneka Gipson MD at 10/17/2024 12:41 PM EDT Associated attestation - Nneka Gipson MD - 10/17/2024 12:41 PM EDT I saw and evaluated the patient with the resident/fellow. I discussed the case with the resident/fellow and agree with the findings and plan as documented. Patient lives in [facility] about 1.5h away, has primary OB Dr [...] Encounter [facility] [address] [place] [address] 11/14/2024 11:15 AM EDT Visit Medical Office Building Obstetrics and Gynecology [address] [facility], [address] [place] [address] Nneka Gipson MD [address] [place] [address] 12/25/2024 1:00 PM EST Office Visit [facility] Nephrology, Bone & Mineral Metabolism [address] [facility], [address] [place] [address] documented as of this encounter Procedures Procedure [...] Ketones, Urine Negative Negative mg/dL POCT Specific [place], Urine 1.015 POCT Blood, Urine Negative Negative POCT pH, Urine 8.5(A) 5.0 to 8.0 POCT Protein, Urine 30(A) Negative mg/dL POCT Urobilinogen, Urine 0.2 0.2, 1 E.U./dL POCT Nitrite, Urine Negative Negative POCT Leukocyte Esterase, Urine Negative Negative Test Strip Lot Number [id number] Test Strip Lot Expiration 07/2025 Urine Urine [...] documented as of this encounter Care Teams Metal Dresser Relationship Specialty Start Date End Date Norma Friedman APRN [address] [place] [address] PCP - General 09/23/24 Lizz Trinh, RN [facility] Registered Nurse Cardiology 09/26/24 documented as of this encounter
--- OUTSIDE RECORDS SUMMARY | 2024-10-17 09:30 | XMS_ITS | Encounter Summary ---
Author Organization Healthcare Address [address] [place] [address] Care Team Providers Care Core Machine Tender Name Role Phone Norma Friedman ELECTRIC MOTOR REPAIRMAN Primary Care Provider +1- [phone] Lizz Trinh RN Unavailable Unavailable Reason for Visit * Reason Comments NST/BPP Visit FGR * Auth/Cert (Routine) Specialty Diagnoses / Procedures Referred By Contac t Referred To Contact Diagnoses Hypokalemia Electrolyte abnormality Hilton Montelongo MD [address] [facility] [address] [place] [address] Phone: tel: fax: [facility] H Labor and Delivery [address] [place] [address] Phone: tel: fax: Referral ID Status Reason Start Date Expiration Date Visits Re quested Visits Authorized [id number] 1 1 Encounter Details Date Type Department Care Team ([facility] st Contact Info) Description 10/17/2024 9:30 AM EDT NST Medical Office Building Obstetrics and Gynecology [address] [facility], [address] [place] [address] growth restriction antepartum (Primary Dx) Social History Tobacco Use Types [...] more drinks on one occasion? Never 09/23/2024 [place] Depression Scale Answer Date Recorded [place] Depression Scale Total 0 09/23/2024 The thought [...] as of this encounter Functional Status * Calculated C-SSRS Risk Score (Lifetime/Recent) Answer Date of Assessment Author No Risk Indicated 10/18/2024 4:00 PM EDT Tex Harman RN * Question Answer Date of Assessment Author 1. Wish to be (Past 1 Month) No 025 4:00 PM EDT Tex Harman RN 2. Non-Specific Active Suici mike Thoughts (Past 1 Month) No 10/18/2024 4:00 PM EDT Dandre Harman RN 6. Suicidal Behavior (Lifetime) No 4:00 PM EDT Tex Harman RN documented as of this encounter Miscellaneous Notes * Procedures - Julia Gruber, RN - 10/17/2024 9:30 AM EDT Non-Stress Test Interpretation Procedures Whitney Presley, [age] at 33w5d with an DUSTY of 12/01/2024, Date entered prior to episode creation, was seen at [facility] for a nonstress test with [facility] RPV. complicated by growth restriction. See encounter for provider's assessment. NST reviewed with provider and noted to be non-reactive. BPP ordered. Pt to RTC as recommendedper OB. See encounter for vitals. Non-Stress Baby A Reason for Non-Stress Test Intrauterine growth restriction Variability in Waveform for Baby A Moderate (periods of minimal) Decelerations in Baby A None Accelerations in Baby A No Acoustic Stimulator for Baby A No Baseline Heart Rate for Baby A 140 BPM Amniotic Fluid Index (If Indicated) (cm) for Baby A Uterine Irritability for Baby A No Contractions in Baby A Not present Minutes Between Contractions in Non-Stress Test Interpretation of Non-Stress Test Interpretation of Non-Stress Test (!) Non-reactive Comments on Non-Stress Test Duration: 51 min Multiple NSTs? No $ NST Charge $ NST Charge (PB) 1 NST performed Cosigned by Nneka Gipson MD at 10/20/2024 8:53 PM EDT Associated attestation - Nneka Gipson MD - 10/20/2024 8:53 PM EDT Reactive NON-STRESS TEST, personally reviewed. Continue surveillance as clinically indicated. Nneka Gipson M.D. Maternal- Medicine 8:53 PM documented in this encounter Plan of Treatment Upcoming Encounters Date Type Department Care Team (Late st Contact Info) Description 10/31/2024 Hospital Encounter [facility] H Labor and Delivery [address] [place] [address] 11/14/2024 11:15 AM EDT Visit Medical Office Building Obstetrics and Gynecology [address] [facility], [address] [place] [address] Nneka Gipson MD [address] [place] [address] 12/25/2024 1:00 PM EST Office Visit [facility] Nephrology, Bone & Mineral Metabolism [address] [facility], [address] [place] [address] documented as of this encounter Visit Diagnoses Diagnosis growth restriction antepartum- Primary documented in this encounter Additional Health Concerns Assessment Noted Time A fall risk assessment has been complete d for the patient 09/26/2024 8:15 AM EDT A Body Mass Index follow-up plan has been documented for the patient 10/20/2024 9:52 AM EDT documented as of this encounter Care Teams Core Machine Tender Relationship Specialty Start Date End Date Norma Friedman APRN [address] [place] [address] PCP - General 09/23/24 Lizz Trinh, RN [facility] Registered Nurse Cardiology 09/26/24 documented as of this encounter
--- OUTSIDE RECORDS SUMMARY | 2024-10-17 10:30 | XMS_ITS | Encounter Summary ---
Author Organization Healthcare Address [address] [place] [address] Care Team Providers Care Engineering Technical Writer Name Role Phone Elder Kadedev Coy SALES STRATEGY MANAGER Primary Care Provider +1- [phone] Lizz Trinh RN Unavailable Unavailable Reason for Visit * Auth/Cert (Routine) Specialty Diagnoses / Procedures Referred By Tarik pedersen Referred To Contact Diagnoses Hypokalemia Electrolyte abnormality Hilton Montelongo MD [address] [facility] [address] [place] [address] Phone: tel: fax: [facility] Labor and Delivery [address] [place] [address] Phone: tel: fax: Referral ID Status Reason Start Date Expiration Date Visits Re quested Visits Authorized [id number] 1 1 Encounter Details Date Type Department Care Team (Latest Contact Info) Description 10/17/2024 10:30 AM EDT - 10/17/2024 3:46 PM EDT Hospital Encounter Medical Office Building Obstetrics and Gynecology [address] [facility], [address] [place] [address] NST (non-stress test) nonreactive Discharge [...] more drinks on one occasion? Never 09/23/2024 [place] Depression Scale Answer Date Recorded [place] Depression Scale Total 0 09/23/2024 The thought [...] not crush, chew, or split. Prenat MV-Min w/Fz-Hgfiql-FUT ( COMPLETE PO) 12/25/2018 promethazine (Phenergan) 12.5 [...] Upcoming Encounters Date Type Department Care Team ([facility] st Contact Info) Description 10/31/2024 Hospital Encounter [facility] Labor and Delivery [address] [place] [address] 11/14/2024 11:15 AM EDT Visit Medical Office Building Obstetrics and Gynecology [address] [facility], [address] [place] [address] Nneka Gipson MD [address] [place] [address] 12/25/2024 1:00 PM EST Office Visit [facility] Nephrology, Bone & Mineral Metabolism [address], [address] [place] [address] documented as of this encounter [...] Please navigate to the Imaging tab in [employer] for review. This message has been generated by the interface. Narrative Procedure Note Melonie Weheler MD - 10/17/2024 IMPRESSION: The OB Ultrasound you requested has been resulted. Please navigate to theImaging tab in [employer] for review. This message has been generated [...] documented as of this encounter Care Teams Engineering Technical Writer Relationship Specialty Start Date End Date Norma Friedman APRN [address] [place] [address] PCP - General 09/23/24 Lizz Trinh, RN [facility] Registered Nurse Cardiology 09/26/24 documented as of this encounter
--- OUTSIDE RECORDS SUMMARY | 2024-10-17 15:47 | XMS_ITS | Encounter Summary ---
Author Organization Healthcare Address [address] 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 Name Role Phone Valentino burgerseven Coy KEY PERSON Primary Care Provider [phone] Lizz Trinh RN Unavailable Unavailable Reason for Visit * Auth/Cert (Routine) Specialty Diagnoses / Procedures Referred By Tarik pedersen Referred To Contact Diagnoses Hypokalemia Electrolyte abnormality Hilton Montelongo MD [address] [address] Phone: tel: fax: [facility] [address] [place] [address] Phone: tel: fax: Referral ID Status Reason Start Date Expiration Date Visits Re quested Visits Authorized [id number] 1 1 Encounter Details Date Type Department Care Team (Latest Contact Info) Description 10/17/2024 3:47 PM EDT - 10/20/2024 10:16 AM EDT Hospital Encounter [facility] [address] [place] [address] Hilton Montelongo MD [address] [address] Discharge Disposition: Home or Self [...] drinks on one occasion? Never 09/23/2024 [place] Depression Scale Answer Date Recorded [place] Depression Scale Total 0 09/23/2024 The thought [...] documented in this encounter Functional Status * Over the past 2 weeks, how often have you been bothered by any of the following problems? Question Answer Date of Assessment Author Little interest or pleasure in doing things Not at all 10/24/2024 7:52 AM EDT Nadine Lamb Feeling down, depressed, or hopeless Not at all 10/07 7:52 AM EDT Nadine Lamb Patient Health Questionnaire-2 Score 0 10/07 7:52 AM EDT Nadine Lamb * Question Answer Date of Assessment Author Trouble falling or staying a sleep, or sleeping too much Not at all 10/24/2024 7:52 AM EDT Ndaine Lamb Feeling tired or having little energy Not at all 7:52 AM EDT Nadine Lamb Poor appetite or overeating Not at all 10/24/2024 7: 52 AM EDT Nadine Lamb Feeling bad about yourself - or that you are a failure or have let yourself or your family down Not at all 10/24/2024 7:52 AM EDT Robina Lamb Trouble concentrating on thi ngs, such as reading the newspaper or watching television Not at all 10/24/2024 7:52 AM EDT Nadine Lamb Moving or speaking so slowly that other people could have noticed? Or the opposite - being so fidgety or restless that you have been moving around a lot more than usual. Not at all 10/24/2024 7:52 AM EDNadine Cintron Thoughts that you would be b hailey off or hurting yourself in some way Not at all 10/24/2024 7:52 AM EDNadine Cintron Patient Health Questionnaire-9 Score 0 10/07 7:52 AM Nadine Mayo * Calculated C-SSRS Risk Score (Lifetime/Recent) Answer Date of Assessment Author No Risk Indicated 10/18/2024 4:00 PM EDT Tex Harman RN * How difficult have these problems made it for you to do your work, take care of things at home, or get along with other people? Answer Date of Assessment Author Not difficult at all 10/24/2024 7:52 AM EDT Nadine Munroe * Question Answer Date of Assessment Author 1. Wish to be (Past 1 Month) No 025 4:00 PM EDT Tex Harman, RN 2. Non-Specific Active Suici mike Thoughts (Past 1 Month) No 10/18/2024 4:00 PM EDT Dandre Harman, RN 6. Suicidal Behavior (Lifetime) No 4:00 PM EDT Tex Harman, RN documented as of this encounter Medications [...] not crush, chew, or split. Prenat MV-Min w/Rv-Iuqzrx-VCG ( COMPLETE PO) 12/25/2018 promethazine (Phenergan) 12.5 [...] Herrmann MD PhD Division of Hospital Medicine [phone] [1] azithromycin, 500 mg, Intravenous, Once in [...] famotidine OR famotidine PF, hydrOXYzinepamoate, magic mouthwash diphen/lido/lrqh-olp-mmxcsf, melatonin, ondansetron ODT OR ondansetronOR ondansetron, prochlorperazine, promethazine, Insert peripheral IV AND Saline lock IV AN D sodium chloride, terbutaline * Sybil Real RN - 10/20/2024 9:51 AM EDT Images from the original note were not included. [id number] Hypokalemia Hypokalemia means a low level of [...] consciousness Last Reviewed Date: 2022 00:00:00 ?? [id number] [employer]. All rights reserved. This information is not intended as a substitute for professional medical care. Always follow your healthcare professional's instructions. * Caleb Leonardo - Sybil Lockett RN - 10/20/2024 9:51 [...] with a nurse. [facility] (Triage) [facility] [address] [place] [address] [facility]st[facility] Gyne[facility] Medical Office Building [address], [address] [place] [address] [facility] [address] [place] [address] Family Practice [address], Third Floor [address] [place] [address] [facility] [address] [place] [address] [facility] Obstetrics & Gynecology [place] [address] [place] [address] [facility] Obstetrics & Gynecology [place] [address] [place] [address] * Discharge Summary - Shazia Booker MD - 10/20/2024 9:50 AM EDT Images from the original note were not included. Hospitalization Admit Date/Time: 10/17/2024 3:47 PM Admitting Attending: Hilton Montelongo Discharge Date: 10/20/2024 Discharge Attending Physician: Laury Cruz MD PCP name and Address: Norma Friedman, KEY PERSON [address] [facility] [place] [id number] Referring provider name and address: No referring [...] Your Medications These medications were sent to [facility] - [place], [place] - [address] [facility] [id number] cyclobenzaprine 5 MG tablet hydrOXYzine pamoate 25 [...] Center 10/24/2024 8:00 AM Nneka Block MD [facility] 10/24/2024 9:45 AM Nneka Gipson MD OBMFMGS[facility]B [facility] 12/25/2024 1:00 PM ([place])ARIEL FELLOW [facility] PAC Test Results Pending At Discharge Pending [...] status upon discharge. Will schedule delivery at [facility] visit this week. Given the persistent and worsening electrolyteabnormalities resulting in cardiac arrhythmias despite aggressive IV and PO supplementation, it would be reasonable to move toward delivery sooner then previously planned. * Sybil Real RN - 10/20/2024 9:50 AM EDT Images from the original note were not included. [id number] About Arrhythmias Your heart beats about 60 [...] the doctor as soon as youcan to coal picker the device. You may have other [...] them. Last Reviewed Date: 2023 00:00:00 ?? [id number] [employer]. All rights reserved. This information is not intended as a substitute for professional medical care. Always follow your healthcare professional's instructions. * Caleb ZieglerCHIRAG - Sybil Lockett RN - 10/20/2024 9:50 [...] use. Last Reviewed Date: 2021 00:00:00 ?? [id number] [employer]. All rights reserved. This information is not [...] care, please call OB resident workroom at #[phone]. Susi Wren MD PGY3 Obstetrics and Gynecology [...] present and clear. Leads intact. Batteries changed. [id number]. Will continue to monitor. Vitals: 10/19/24 1735 [...] PLT 185 10/17/2024 MCV 88 10/17/2024 ASSESSMENT/PLAN: Sakina Whitney: 34yo female PMHx -related hyperaldosteronism, cardiac arrest [...] TTE showed no valvular or functional abnormalities Sanots Herrmann MD PhD Division of Hospital Medicine [phone] [1] azithromycin, 500 mg, Intravenous, Once in [...] Status Stable. Patient on remote telemetry box [id number]. Has good signal and function. Lead placement [...] Date of : 1990 [facility] Reason for consultation: Epigastric pain Subjective: History [...] Elvis Kay MD GI Fellow, PGY-5 Pager: [phone] [1] Past Medical History: Diagnosis Date Maternal [...] Date SECTION, LOW TRANSVERSE N/A section from [facility] DILATION AND CURETTAGE OF UTERUS N/A Dilation and curettage from [facility] WISDOM TOOTH EXTRACTION N/A Oral Surgery Tooth Extraction [place] Tooth from [facility] [3] Family History Problem Relation Name Age [...] Chinyere Nieto MD, 3 mg at 10/19/24 0122 multivitamin tablet 1 tablet, 1 tablet, Oral, Daily, Chinyere Nieto MD, 1 tablet at 10/19/24 0802 mupirocin (Bactroban) 2 % ointment 1 Application, 1 Application, Each Nostril, BID, Ana Deal MD, 1 Application at 10/19/24 0805 ondansetron ODT (Zofran-ODT) disintegrating tablet 4 mg, [...] pt Multiple Births: No Uterine Activity Mode: Hunker Contraction Frequency: one traced Contraction Duration: 140 [...] - painful contractions yesterday evening - CE 250/-3, unchanged over two checks - Start GBS prophylaxis if making cervical change DISPO: Continue inpatient management For any questions or concerns regarding this patient's care, please call OB resident workroom at #[phone]. Shazia Booker MD OBGYN Resident PGY-3 Cosigned [...] Does have intermittent depressed T waves. Hard telephone technician at bedside. * Care Plan - Tex [...] Low Risk (05/28/2024) Received from [facility] Overall Financial Resource Strain (CARDIA) Difficulty of Paying Living Expenses: Not hard at all Food Insecurity: No Food Insecurity (05/28/2024) Received from [facility] Hunger Vital Sign Within the past 12 months, you worried that your food would run out before you got the money to buymore.: Never true Within the past 12 months, the food you bought just didn't last and you didn't have money to get more.: Never true Transportation Needs: No Transportation Needs (05/28/2024) Received from [facility] PRAPARE - Transportation In the past 12 months, has lack of transportation kept you from medical appointments or from getting medications?: No In the past 12 months, has lack of transportation kept you from meetings, work, or from getting things needed for daily living?: No Physical Activity: Sufficiently Active (05/28/2024) Received from [facility] Exercise Vital Sign On average, how many days per week do you engage in moderate to strenuous exercise (like a brisk walk)?: 5 days On average, how many minutes do you engage in exercise at this level?: 40 min Stress: Stress Concern Present (05/27/2024) Received from [facility] [employer] [place] [facility] [employer] - Occupational Stress Questionnaire Feeling of Stress : To some extent Social Connections: Not At Risk (05/28/2024) Received from [facility] Family and Community Support If for any reason you need help with day-to-day activities such as bathing, preparing meals, shopping, managing finances, etc., do you get the help you need?: I don't need any help How often do you feel lonely or isolated from those around you?: Sometimes Intimate Partner Violence: Not At Risk (08/19/2024) Received from [facility] Abuse Screen Feels Unsafe at Home or Work/School: no Feels Threatened by Someone: no Does Anyone Try to Keep You From Having Contact with Others or Doing Things Outside Your Home?: no Physical Signs of Abuse Present: no Housing Stability: Not At Risk (08/20/2024) Received from [facility] Housing Stability Current Living Arrangements: home [...] 1347 10/18/24 1346 10/18/24 0914 10/18/24 0338 10/17/24 2241 10/17/24 1605 SODIUM mmol/L 132* 134* 134* < [...] interval not displayed. Impression & Plan: Whitney Leah Presley is a 34 y.o. female currently [...] follow. Urbano Donohue DO Nephrology Fellow Page [phone] [1] Past Medical History: Diagnosis Date Maternal [...] TOOTH EXTRACTION N/A Oral Surgery Tooth Extraction [place] Tooth from [facility] [4] Family History Problem [...] mg, Oral, q6h PRN, Chinyere Nieto MD potassium chloride CR (Klor-Con) ER [...] abnormalities Santos Herrmann MD PhD Division of [facility] Medicine [phone] [1] azithromycin, 500 mg, Intravenous, Once in [...] Low Risk (05/28/2024) Received from [facility] Overall Financial Resource Strain (CARDIA) Difficulty of Paying Living Expenses: Not hard at all Food Insecurity: No Food Insecurity (05/28/2024) Received from [facility] Hunger Vital Sign Within the past 12 months, you worried that your food would run out before you got the money to buymore.: Never true Within the past 12 months, the food you bought just didn't last and you didn't have money to get more.: Never true Transportation Needs: No Transportation Needs (05/28/2024) Received from [facility] PRAPARE - Transportation In the past 12 months, has lack of transportation kept you from medical appointments or from getting medications?: No In the past 12 months, has lack of transportation kept you from meetings, work, or from getting things needed for daily living?: No Physical Activity: Sufficiently Active (05/28/2024) Received from [facility] Exercise Vital Sign On average, how many days per week do you engage in moderate to strenuous exercise (like a brisk walk)?: 5 days On average, how many minutes do you engage in exercise at this level?: 40 min Stress: Stress Concern Present (05/27/2024) Received from [facility] [place] [facility] - Occupational Stress Questionnaire Feeling of Stress : To some extent Social Connections: Not At Risk (05/28/2024) Received from [facility] Family and Community Support If for any reason you need help with day-to-day activities such as bathing, preparing meals, shopping, managing finances, etc., do you get the help you need?: I don't need any help How often do you feel lonely or isolated from those around you?: Sometimes Intimate Partner Violence: Not At Risk (08/19/2024) Received from [facility] Abuse Screen Feels Unsafe at Home or Work/School: no Feels Threatened by Someone: no Does Anyone Try to Keep You From Having Contact with Others or Doing Things Outside Your Home?: no Physical Signs of Abuse Present: no Housing Stability: Not At Risk (08/20/2024) Received from [facility] Housing Stability Current Living Arrangements: home [...] and consequences of such a bleed, including livestock farmers neurodevelopmental delay. I outlined the plans for [...] Date SECTION, LOW TRANSVERSE N/A section from [facility] DILATION AND CURETTAGE OF UTERUS N/A Dilation and curettage from [facility] WISDOM TOOTH EXTRACTION N/A Oral Surgery Tooth Extraction [place] Tooth from [facility] [3] No current facility-administered medications on file [...] Do not crush,chew, or split. Prenat MV-Min w/So-Vhdpfy-BRT ( COMPLETE PO) promethazine (Phenergan) 12.5 MG [...] Intervention: Provide Person-Centered Care Flowsheets (Taken 10/18/2024 030) Trust Relationship/Rapport: care explained choices provided emotional support provided empathic listening provided questions answered questions encouraged thoughts/feelings acknowledged reassurance provided Problem: Hospitalized Patient Goal: Optimal Patient- Wellbeing Outcome: Ongoing, Progressing Intervention: Support Psychosocial Response Flowsheets (Taken 10/18/2024 030) Supportive Measures: active listening utilized Family/Support System [...] with prior who initially presented to the [facility] with chief complaint of dyspnea and chest [...] 10 mEq, 2 times daily Prenat MV-Min w/Bx-Imgfdb-RTI ( COMPLETE PO) thiamine (VITAMIN B-1) 100 [...] y.o. female who initially presented to the [facility] todaywith chief complaint of -related chest pain, [...] in her dyspnea Please page the on-call investments manager with any further questions. I spent 45 minutes performing the following components of the encounter (on the day of the encounter): reviewing History, examining the patient, reviewing imaging and/or labs, Independently interpreting echocardiogram, ECG and/or other imaging results, counseling the patient and family/caregiver, communicating with other health career based intervention coordinator, care coordination, and entering clinical information in the EHR. Greater than 50% of the time spent on the encounter was face to face providing direct patient care, counseling for the patient/caregiver, and care coordination. Ania Mccabe DO PGY-4 [employer] Senior [employer] 10/18/24 4:22 AM [1] Past Medical History: [...] OF UTERUS N/A Dilation and curettage from [facility] WISDOM TOOTH EXTRACTION N/A Oral Surgery Tooth Extraction [place] Tooth from [facility] Cosigned by Noel Osman MD at 10/18/2024 [...] to Hospital Medicine Consult performed by: Nya oLng MD Consult ordered by: Hilton Montelongo MD [...] as well. She currently takes daily PO [id number] and PO magnesium 1600mg in addition to [...] 10 mEq, 2 times daily Prenat MV-Min w/Cp-Ixtoev-CSC ( COMPLETE PO) thiamine (VITAMIN B-1) 100 [...] Nya Long MD Internal Medicine PGY-2 Pager: [phone] [1] Allergies Allergen Reactions Bismuth Subsalicylate Other [...] Nieto MD - 10/17/2024 5:05 PM EDT [facility] OBST[facility]RICS OBSTETRIC EMERGENCY HISTORY & PHYSICAL Patient Name: Whitney Presley : 1990 CHIEF CONCERN: Non-reactive NST, SOA PRIMARY OB: Boby Marin MD Subjective Subjective HPI: Whitney Presley is a 34 y.o. at 33w4d (12/01/2024) who presents with shortness of breath and chest pain that started 2 hours ago. States that she went to see [facility] today and she had an US and failed her BPP and had a non- reactive NST. She also has a complicated past medical history duringthis in which she follows with [facility], cardiology, and nephrology. is complicated by [...] 10 mEq, 2 times daily Prenat MV-Min w/Qo-Pmqzux-SFE ( COMPLETE PO) thiamine (VITAMIN B-1) 100 [...] and management. Please contact first-call provider on [employer] Secure Chat for questions or concerns. For emergencies [place] [phone]. Jasen Li DO Family Medicine, PGY-1 [facility] Chinyere Cordova MD Obstetrics and Gynecology, PGY-3 [...] TOOTH EXTRACTION N/A Oral Surgery Tooth Extraction [place] Tooth from [facility] [3] Social History Tobacco [...] Encounter [facility] Delivery [address] [place] [address] 11/14/2024 11:15 AM EDT Visit Medical Office Building Obstetrics and Gynecology [address], [address] [place] [address] Nneka Gipson MD [address] [place] [address] 12/25/2024 1:00 PM EST Office Visit [facility] Nephrology, Bone & Mineral Metabolism [address], [address] [place] [address] documented as of this encounter [...] HOUR URINE Routine 10/20/19 2:43 PM EDT ALDOSTERONE, URINE, 24 HOUR Routine 10/19/2024 2:42 PM EDT PHOSPHORUS, PLASMA Add-On 10/19/2024 7: [...] EDT BLOOD GAS PANEL, VENOUS Routine 10/19/19 3:38 AM EDT BASIC METABOLIC PANEL, PLASMA [...] EDT BLOOD GAS PANEL, VENOUS STAT 10/18/19 10:41 PM EDT COMPREHENSIVE METABOLIC PANEL, PLASMA [...] Detected(AA) Not Detected 10/21/2024 11:30 AM EDT [facility] Comment:Previously prelim ve rified as Not Detected on 10/20/2024 at 1221 EDT. Herpes Simplex Virus 2 (HSV-2) PCR Result Not Detected Not Detected 10/21/2024 11:30 AM EDT [facility] Serum Venous blood specimen / Unknown 10/19/2024 9:28 PM EDT 10/19/2024 11:58 PM EDT Narrative [facility] - 10/21/2024 11:30 AM EDT This PCR assay was developed and its performance characteristics determined by [facility] as appropriate for clinical purposes. This assay has not been cleared or approved by the FDA, but is performed in a CLIA regulated laboratory that is qualified to perform high-complexity testing. This PCR assay was developed and its performance characteristics determined by [facility] as appropriate for clinical purposes. This assay has not been cleared or approved by the FDA, but is performed in a CLIA regulated laboratory that is qualified to perform high-complexity testing. This PCR assay was developed and its performance characteristics determined by [facility] as appropriate for clinical purposes. This assay has not been cleared or approved by the FDA, but is performed in a CLIA regulated laboratory that is qualified to perform high-complexity testing. us Hilton Montelongo MD LAB MICROBIOLOGY - GENERAL OR DERABLES Final Result [facility] [address] [place] [address] * Brooke Mejias Virus (EBV) Quantitative PCR (10/19/2024 9:28 PM EDT) Brooke Mejias Virus, Blood, Quant DNA Interpretation Not Detected Not Detected 10/23/2024 12:34 PM EDT [facility] Blood Venous blood specimen / Unknown Venipuncture / Unknown 10/19/2024 9:28 PM EDT 10/19/2024 11:58 PM EDT Narrative [facility] - 10/23/2024 12:34 PM EDT EBV [...] developed and it's performance characteristics determined by [facility] as appropriate for clinical purposes. [...] developed and it's performance characteristics determined by [facility] as appropriate for clinical purposes. This assay has not been cleared or approved by the FDA, but is performed in a CLIA regulated laboratory that is qualified to perform high-complexity testing. Hilton Montelongo MD LAB BLOOD ORDERABLES Final Re sult Performing Organization Address [facility] [place] [address] * Cytomegalovirus (CMV) Quantitative PCR (10/19/2024 9:28 PM EDT) Cytomegalovirus (CMV) Quantitative Interpretation Not Detected Not Detected 10/21/2024 12:44 PM EDT [facility] Blood Venous blood specimen / Unknown Venipuncture / Unknown 10/19/2024 9:28 PM EDT 10/19/2024 11:58 PM EDT Narrative [facility] - 10/21/2024 12:44 PM EDT [facility] [employer] M2000 CMV test is a Real Time [...] ORDERABLES Final Re sult Performing Organization Address [facility] [place] [address] * Phosphorus, Plasma (10/19/2024 9:28 PM EDT) Phosphorus, Plasma 2.5 2.5 - 4.5 mg/dL 10/19/2024 10:07 PM EDT [facility] Blood Venous blood specimen / Unknown Venipuncture / Unknown 10/19/2024 9:28 PM EDT 10/19/2024 9:38 PM EDT Result [facility] Santos Herrmann MD LAB BLOOD ORDERABLES Final Resu lt Performing Organization Address [facility]/ZIP Co de Phone Number [facility] [address] [place] [address] * (ABNORMAL) Magnesium (10/19/2024 9:28 PM EDT) Magnesium, Plasma 1.7(L) 1.9 - 2.4 mg/dL 10/19/2024 10:07 PM EDT [facility] Blood Venous blood specimen / Unknown Venipuncture / Unknown 10/19/2024 9:28 PM EDT 10/19/2024 9:38 PM EDT Santos Herrmann MD LAB BLOOD ORDERABLES Final Resu lt Performing Organization Address [facility]/ZIP Co de Phone Number [facility] [address] [place] [address] * (ABNORMAL) Basic metabolic panel (10/19/2024 9:28 PM EDT) Glucose, Plasma 78 74 - 99 mg/dL 10/19/2024 10:07 PM EDT [facility] BUN, Plasma 4(L) 7 - 21 mg/dL 10/19/2024 10:07 PM EDT [facility] Creatinine, Plasma 0.61 0.60 - 1.10 mg/dL 10/19/2024 10:07 PM EDT [facility] BUN/Creatinine Ratio 7 10/19/2024 10:07 PM EDT [facility] Sodium, Plasma 137 136 - 145 mmol/L 10/19/2024 10:07 PM EDT [facility] Potassium, Plasma 4.3 3.6 - 4.9 mmol/L 10/19/2024 10:07 PM EDT [facility] Chloride, Plasma 108(H) 97 - 107 mmol/L 10/19/2024 10:07 PM EDT [facility] CO2, Plasma 20(L) 22 - 29 mmol/L 10/19/2024 10:07 PM EDT [facility] Anion Gap 9 6 - 16 mmol/L 10/19/2024 10:07 PM EDT [facility] Total Calcium, Plasma 7.8(L) 8.9 - 10.2 mg/dL 10/19/2024 10:07 PM EDT [facility] eGFRcr 121.2 mL/min/1.7 3m*2 10/19/2024 10:07 PM EDT [facility] Comment:Reported eGFRcr in m L/min/1.73m2 is based the CKD-EPI 2020 equation that does not use a race coefficient. Blood Venous blood specimen / Unknown Venipuncture / Unknown 10/19/2024 9:28 PM EDT 10/19/2024 9:38 PM EDT Santos Herrmann MD LAB BLOOD ORDERABLES Final Resu lt [facility] LAB [address] [place] [address] * ECG Adult (10/19/2024 6:45 PM EDT) EKG DIAGNOSIS CLASS Normal MUSE ECG Ventricular Rate 82 BPM MUSE ECG Atrial Rate 82 BPM MUSE ECG MI Interval 138 ms MUSE ECG QRSD Interval 80 ms MUSE ECG QT Interval 360 ms MUSE ECG QTC Interval 420 ms MUSE ECG P [place] 46 degrees MUSE ECG R [place] 29 degrees MUSE ECG T Wave [place] 36 degrees MUSE ECG Diagnosis Normal sinus rhythm MUSE ECG Diagnosis Normal ECG MUSE ECG Diagnosis MUSE ECG Diagnosis Confirmed by Noel Osman ([id number]) on 10/20/2024 12:15:29 PM MUSE ECG 10/19/2024 6:45 PM EDT 10/20/2024 12:15 PM EDT us Hilton Montelongo MD ECG ORDERABLES Final Result MUSE ECG * (ABNORMAL) Hepatic function panel (10/19/2024 5:12 PM EDT) Direct Bilirubin, Plasma <0.2 <=0.3 mg/dL 10/19/2024 7:32 PM EDT [facility] Alkaline Phosphatase, Plasma 68 35 - 104 U/L 10/19/2024 7:32 PM EDT [facility] Total Bilirubin, Plasma 0.3 0.2 - 1.1 mg/dL 10/19/2024 7:32 PM EDT [facility] Albumin, Plasma 2.5(L) 3.5 - 5.2 g/dL 10/19/2024 7:32 PM EDT [facility] Total Protein 5.2(L) 6.3 - 7.9 g/dL 10/19/2024 7:32 PM EDT [facility] ALT, Plasma 48(H) 10 - 35 U/L 10/19/2024 7:32 PM EDT [facility] AST, Plasma 35 10 - 35 U/L 10/19/2024 7:32 PM EDT [facility] Blood Venous blood specimen / Unknown Venipuncture / Unknown 10/19/2024 5:12 PM EDT 10/19/2024 5:30 PM EDT us Hilton Montelongo MD LAB BLOOD ORDERABLES Final Re sult Performing Organization Address City/[facility]/ZIP Co de Phone Number [facility] [address] [place] [address] * (ABNORMAL) Phosphorus, Plasma (10/19/2024 5:12 PM EDT) Phosphorus, Plasma 2.2(L) 2.5 - 4.5 mg/dL 10/19/2024 6:02 PM EDT [facility] Blood Venous blood specimen / Unknown Venipuncture / Unknown 10/19/2024 5:12 PM EDT 10/19/2024 5:30 PM EDT us Santos Herrmann MD LAB BLOOD ORDERABLES Final Resu lt [facility] [address] [place] [address] * (ABNORMAL) Magnesium (10/19/2024 5:12 PM EDT) Magnesium, Plasma 1.5(L) 1.9 - 2.4 mg/dL 10/19/2024 6:02 PM EDT [facility] Blood Venous blood specimen / Unknown Venipuncture / Unknown 10/19/2024 5:12 PM EDT 10/19/2024 5:30 PM EDT us Santos Herrmann MD LAB BLOOD ORDERABLES Final Resu lt [facility] [address] [place] [address] * (ABNORMAL) Basic metabolic panel (10/19/2024 5:12 PM EDT) Glucose, Plasma 121(H) 74 - 99 mg/dL 10/19/2024 6:02 PM EDT [facility] BUN, Plasma 4(L) 7 - 21 mg/dL 10/19/2024 6:02 PM EDT [facility] Creatinine, Plasma 0.58(L) 0.60 - 1.10 mg/dL 10/19/2024 6:02 PM EDT [facility] BUN/Creatinine Ratio 7 10/19/2024 6:02 PM EDT [facility] Sodium, Plasma 137 136 - 145 mmol/L 10/19/2024 6:02 PM EDT [facility] Potassium, Plasma 4.0 3.6 - 4.9 mmol/L 10/19/2024 6:02 PM EDT [facility] Chloride, Plasma 105 97 - 107 mmol/L 10/19/2024 6:02 PM EDT [facility] CO2, Plasma 20(L) 22 - 29 mmol/L 10/19/2024 6:02 PM EDT [facility] Anion Gap 12 6 - 16 mmol/L 10/19/2024 6:02 PM EDT [facility] Total Calcium, Plasma 8.0(L) 8.9 - 10.2 mg/dL 10/19/2024 6:02 PM EDT [facility] eGFRcr 122.7 mL/min/1.7 3m*2 10/19/2024 6:02 PM EDT [facility] Comment:Reported eGFRcr in m L/min/1.73m2 is based the CKD-EPI 2020 equation that does not use a race coefficient. Blood Venous blood specimen / Unknown Venipuncture / Unknown 10/19/2024 5:12 PM EDT 10/19/2024 5:30 PM EDT us Santos Herrmann MD LAB BLOOD ORDERABLES Final Resu lt [facility] [address] [place] [address] * US Abdomen Focused Region Liver, GB, [...] Urine <6 mg/dL 10/19/2024 3:39 PM EDT [facility] Total Protein per day 10/19/2024 3:39 PM EDT [facility] Comment:Unable to calculate, at least one value is above or below the detection limit. Hours Of Collection 24 HRS 10/19/2024 3:39 PM EDT [facility] Urine, Volume 2,750 mL 10/19/2024 3:39 PM EDT [facility] Urine Urine specimen obtained by clean catch procedure / Unknown Non-blood Collection / Unknown 10/19/2024 2:43 PM EDT 10/19/2024 2:52 PM EDT Narrative [facility] - 10/19/2024 3:39 PM EDT Reference Range <80 mg/day if bed rest <150 mg/day if ambulatory us Santos Herrmann MD LAB URINE ORDERABLES Final Resu lt Performing Organization Address [facility] Co de Phone Number [facility] [address] [place] [address] * Potassium, Urine, 24 Hour (10/19/2024 2:43 PM EDT) Potassium, Urine 20 mmol/L 10/19/2024 3:39 PM EDT [facility] Hours Of Collection 24 HRS 10/19/2024 3:39 PM EDT [facility] Urine, Volume 2,750 mL 10/19/2024 3:39 PM EDT [facility] Potassium per day, Urine 55 18 - 58 mmol/d 10/19/2024 3:39 PM EDT [facility] Urine Urine specimen obtained by clean catch procedure / Unknown Non-blood Collection / Unknown 10/19/2024 2:43 PM EDT 10/19/2024 2:52 PM EDT us Santos Herrmann MD LAB URINE ORDERABLES Final Resu lt Performing Organization Address City/[facility]/ZIP Co de Phone Number [facility] [address] [place] [address] * Sodium, 24 Hour, Urine (10/19/2024 2:43 PM EDT) Sodium, Urine 45 mmol/L 10/19/2024 3:39 PM EDT [facility] Sodium per day 124 48 - 168 mmol/d 10/19/2024 3:39 PM EDT [facility] Hours Of Collection 24 HRS 10/19/2024 3:39 PM EDT [facility] Urine, Volume 2,750 mL 10/19/2024 3:39 PM EDT [facility] Urine Urine specimen obtained by clean catch procedure / Unknown Non-blood Collection / Unknown 10/19/2024 2:43 PM EDT 10/19/2024 2:52 PM EDT us Santos Herrmann MD LAB URINE ORDERABLES Final Resu lt Performing Organization Address [facility] de Phone Number [facility] [address] [place] [address] * Phosphorus, Urine, 24 Hour (10/19/2024 2:43 PM EDT) Phosphorus, Urine 29.1 mg/dL 10/19/2024 3:24 PM EDT [facility] Phosphorus per day, Urine 0.8 0.4 - 1.3 g/d 10/19/2024 3:24 PM EDT [facility] Hours Of Collection 24 HRS 10/19/2024 3:24 PM EDT [facility] Urine, Volume 2,750 mL 10/19/2024 3:24 PM EDT [facility] Urine Urine specimen obtained by clean catch procedure / Unknown Non-blood Collection / Unknown 10/19/2024 2:43 PM EDT 10/19/2024 2:53 PM EDT us Santos Herrmann MD LAB URINE ORDERABLES Final Resu lt Performing Organization Address [facility]/ZIP Co de Phone Number [facility] [address] [place] [address] * (ABNORMAL) Magnesium, urine, 24 hour (10/19/2024 2:43 PM EDT) Magnesium, Random Urine 24.3 mg/dL 10/19/2024 3:24 PM EDT [facility] Magnesium per day 668.3(H) 70.0 - 120.0 mg/d 10/19/2024 3:24 PM EDT [facility] Hours Of Collection 24 HRS 10/19/2024 3:24 PM EDT [facility] Urine, Volume 2,750 mL 10/19/2024 3:24 PM EDT [facility] Urine Urine specimen obtained by clean catch procedure / Unknown Non-blood Collection / Unknown 10/19/2024 2:43 PM EDT 10/19/2024 2:53 PM EDT us Santos Herrmann MD LAB URINE ORDERABLES Final Resu lt Performing Organization Address [facility] Co de Phone Number [facility] [address] [place] [address] * Creatinine, 24 Hour Urine (10/19/2024 2:43 PM EDT) Creatinine, Urine 30 mg/dL 10/19/2024 3:39 PM EDT [facility] Creatinine per day, Urine 825 500 - 1,600 mg/d 10/19/2024 3:39 PM EDT [facility] Hours Of Collection 24 HRS 10/19/2024 3:39 PM EDT [facility] Urine, Volume 2,750 mL 10/19/2024 3:39 PM EDT [facility] Urine Urine specimen obtained by clean catch procedure / Unknown Non-blood Collection / Unknown 10/19/2024 2:43 PM EDT 10/19/2024 2:52 PM EDT us Santos Herrmann MD LAB URINE ORDERABLES Final Resu lt Performing Organization Address [facility]/ZIP Co de Phone Number [facility] [address] [place] [address] * Chloride, 24 Hour Urine (10/19/2024 2:43 PM EDT) Chloride, Urine <20 mmol/L 3:39 PM EDT [facility] Hours Of Collection 24 HRS 10/19/2024 3:39 PM EDT [facility] Urine, Volume 2,750 mL 10/19/2024 3:39 PM EDT [facility] Chloride per day, Urine 10/19/2024 3:39 PM EDT [facility] Comment:Unable to calculate, at least one value is above or below the detection limit. Urine Urine specimen obtained by clean catch procedure / Unknown Non-blood Collection / Unknown 10/19/2024 2:43 PM EDT 10/19/2024 2:52 PM EDT Santos Herrmann MD LAB URINE ORDERABLES Final Resu lt Performing Organization Address [facility]/ZIP Co de Phone Number [facility] [address] [place] [address] * Calcium, 24 Hour Urine (10/19/2024 2:43 PM EDT) Calcium, Urine 3.1 mg/dL 10/19/2024 3:24 PM EDT [facility] Calcium per day, Urine 85 mg/day 10/19/2024 3:24 PM EDT [facility] Hours Of Collection 24 HRS 10/19/2024 3:24 PM EDT [facility] Urine, Volume 2,750 mL 10/19/2024 3:24 PM EDT [facility] Urine Urine specimen obtained by clean catch procedure / Unknown Non-blood Collection / Unknown 10/19/2024 2:43 PM EDT 10/19/2024 2:53 PM EDT Narrative [facility] - 10/19/2024 3:24 PM EDT Free Ca diet 5 - 40 mg/d Low to average Ca diet 50 - 150 mg/d Average Ca diet 100 - 300 mg/d us Santos Herrmann MD LAB URINE ORDERABLES Final Resu lt Performing Organization Address [facility]/ZIP Co de Phone Number [facility] [address] [place] [address] * Albumin-creatinine ratio, 24 hr urine (10/19/2024 2:43 PM EDT) Microalbumin, Urine <1.2 <1.9 mg/dL 10/19/2024 3:39 PM EDT [facility] Albumin per day 3:39 PM EDT [facility] Comment:Unable to calculate, at least one value is above or below the detection limit. Microalbumin Excretion Rate 10/19/2024 3:39 PM EDT [facility] Comment:Unable to calculate, at least one value is above or below the detection limit. Creatinine, Urine 30 mg/dL 025 3:39 PM EDT [facility] Creatinine, 24H Ur 825 500 - 1,600 mg/d 10/19/2024 3:39 PM EDT [facility] Comment:Unable to calculate, at least one value is above or below the detection limit. Albumin/Creatinin e Ratio 10/19/2024 3:39 PM EDT [facility] Comment:Unable to calculate, at least one value is above or below the detection limit. Hours Of Collection 24 HRS 10/19/2024 3:39 PM EDT [facility] Urine, Volume 2,750 mL 10/19/2024 3:39 PM EDT [facility] Urine Urine specimen obtained by clean catch procedure / Unknown Non-blood Collection / Unknown 10/19/2024 2:43 PM EDT 10/19/2024 2:52 PM EDT us Santos Herrmann MD LAB URINE ORDERABLES Final Resu lt Performing Organization Address City/State/[facility] Co de Phone Number [facility] [address] [place] [address] * (ABNORMAL) Aldosterone, urine, 24 hour (10/19/2024 2:42 PM EDT) Creatinine, Urine - per 24h 908 700 - 1600 mg/d 10/27/2024 10:59 PM EDT [facility] ([place]) Creatinine, Urine - per volume 33 mg/dL 10/27/2024 10:59 PM EDT [facility] ([facility]) Total Volume 2750 mL 10/27/2024 10:59 PM EDT [facility] ([facility]) Hours Collected 24 hr 10/27/2024 10:59 PM EDT [facility] ([facility]) ALDOSTERONE,UR INE RESULT 310.6(H) 1.2 - 28.1 ug/d 10/27/2024 10:59 PM EDT [facility] ([facility]) Urine Urine specimen obtained by clean catch procedure / Unknown Non-blood Collection / Unknown 10/19/2024 2:42 PM EDT 10/19/2024 4:27 PM EDT Narrative [facility] ([facility]) - 10/27/2024 10:59 PM EDT Per 24h calculations are provided to aid interpretation for collections with a duration of 24 hours and an average daily urine volume. For specimens with notable deviations in collection time or volume, ratios of analytes to a corresponding urine creatinine concentration may assist in result interpretation. Performed By: [employer] [address] [place] [address] Machine Maintenance Repairer: Brandon Bell MD, PhD CLIA Number: [id number] us Santos Herrmann MD LAB URINE ORDERABLES Final Resu lt [facility] ([facility]) [address] [place] [address] * Magnesium (10/19/2024 7:03 AM EDT) Magnesium, Plasma 2.1 1.9 - 2.4 mg/dL 10/19/2024 7:54 AM EDT [facility] Blood Venous blood specimen / Unknown Venipuncture / Unknown 10/19/2024 7:03 AM EDT 10/19/2024 7:06 AM EDT us Hilton Montelongo MD LAB BLOOD ORDERABLES Final Re sult [facility] [address] [place] [address] * Phosphorus (10/19/2024 7:03 AM EDT) Phosphorus, Plasma 3.3 2.5 - 4.5 mg/dL 10/19/2024 7:54 AM EDT [facility] Blood Venous blood specimen / Unknown Venipuncture / Unknown 10/19/2024 7:03 AM EDT 10/19/2024 7:06 AM EDT us Hilton Montelongo MD LAB BLOOD ORDERABLES Final Re sult Performing Organization Address [facility]/ZIP Co de Phone Number [facility] [address] [place] [address] * Phosphorus, Plasma (10/19/2024 7:03 AM EDT) Phosphorus, Plasma 3.3 2.5 - 4.5 mg/dL 10/19/2024 7:32 AM EDT [facility] Blood Venous blood specimen / Unknown Venipuncture / Unknown 10/19/2024 7:03 AM EDT 10/19/2024 7:06 AM EDT us Hilton Montelongo MD LAB BLOOD ORDERABLES Final Re sult Performing Organization Address [facility]/ZIP Co de Phone Number [facility] [address] [place] [address] * Magnesium (10/19/2024 7:03 AM EDT) Magnesium, Plasma 2.1 1.9 - 2.4 mg/dL 10/19/2024 7:32 AM EDT [facility] Blood Venous blood specimen / Unknown Venipuncture / Unknown 10/19/2024 7:03 AM EDT 10/19/2024 7:06 AM EDT us Hilton Montelongo MD LAB BLOOD ORDERABLES Final Re sult Performing Organization Address City/[facility]/ZIP Co de Phone Number [facility] [address] [place] [address] * (ABNORMAL) Basic metabolic panel (10/19/2024 7:03 AM EDT) Glucose, Plasma 88 74 - 99 mg/dL 10/19/2024 7:36 AM EDT [facility] BUN, Plasma 6(L) 7 - 21 mg/dL 10/19/2024 7:36 AM EDT [facility] Creatinine, Plasma 0.60 0.60 - 1.10 mg/dL 10/19/2024 7:36 AM EDT [facility] BUN/Creatinine Ratio 10 10/19/2024 7:36 AM EDT [facility] Sodium, Plasma 139 136 - 145 mmol/L 10/19/2024 7:36 AM EDT [facility] Potassium, Plasma 3.5(L) 3.6 - 4.9 mmol/L 10/19/2024 7:36 AM EDT [facility] Chloride, Plasma 105 97 - 107 mmol/L 10/19/2024 7:36 AM EDT [facility] CO2, Plasma 24 22 - 29 mmol/L 10/19/2024 7:36 AM EDT [facility] Anion Gap 10 6 - 16 mmol/L 10/19/2024 7:36 AM EDT [facility] Total Calcium, Plasma 8.3(L) 8.9 - 10.2 mg/dL 10/19/2024 7:36 AM EDT [facility] eGFRcr 121.7 mL/min/1.7 3m*2 10/19/2024 7:36 AM EDT [facility] Comment:Reported eGFRcr in m L/min/1.73m2 is based the CKD-EPI 2020 equation that does not use a race coefficient. Blood Venous blood specimen / Unknown Venipuncture / Unknown 10/19/2024 7:03 AM EDT 10/19/2024 7:06 AM EDT us Hilton Montelongo MD LAB BLOOD ORDERABLES Final Re sult [facility] [address] [place] [address] * Phosphorus, Plasma (10/18/2024 10:56 PM EDT) Phosphorus, Plasma 3.3 2.5 - 4.5 mg/dL 10/18/2024 11:57 PM EDT [facility] Blood Venous blood specimen / Unknown Venipuncture / Unknown 10/18/2024 10:56 PM EDT 10/18/2024 11:07 PM EDT us Hilton Montelongo MD LAB BLOOD ORDERABLES Final Re sult Performing Organization Address [facility] Co de Phone Number [facility] [address] [place] [address] * (ABNORMAL) Magnesium (10/18/2024 10:56 PM EDT) Magnesium, Plasma 3.1(H) 1.9 - 2.4 mg/dL 10/18/2024 11:57 PM EDT [facility] Blood Venous blood specimen / Unknown Venipuncture / Unknown 10/18/2024 10:56 PM EDT 10/18/2024 11:07 PM EDT us Hilton Montelongo MD LAB BLOOD ORDERABLES Final Re sult Performing Organization Address [facility] Co de Phone Number [facility] [address] [place] [address] * (ABNORMAL) Basic metabolic panel (10/18/2024 10:56 PM EDT) Glucose, Plasma 104(H) 74 - 99 mg/dL 10/18/2024 11:57 PM EDT [facility] BUN, Plasma 7 7 - 21 mg/dL 10/18/2024 11:57 PM EDT [facility] Creatinine, Plasma 0.63 0.60 - 1.10 mg/dL 10/18/2024 11:57 PM EDT [facility] BUN/Creatinine Ratio 11 10/18/2024 11:57 PM EDT [facility] Sodium, Plasma 136 136 - 145 mmol/L 10/18/2024 11:57 PM EDT [facility] Potassium, Plasma 3.5(L) 3.6 - 4.9 mmol/L 10/18/2024 11:57 PM EDT [facility] Chloride, Plasma 100 97 - 107 mmol/L 10/18/2024 11:57 PM EDT [facility] CO2, Plasma 26 22 - 29 mmol/L 10/18/2024 11:57 PM EDT [facility] Anion Gap 10 6 - 16 mmol/L 10/18/2024 11:57 PM EDT [facility] Total Calcium, Plasma 7.8(L) 8.9 - 10.2 mg/dL 10/18/2024 11:57 PM EDT [facility] eGFRcr 120.3 mL/min/1.7 3m*2 10/18/2024 11:57 PM EDT [facility] Comment:Reported eGFRcr in m L/min/1.73m2 is based the CKD-EPI 2020 equation that does not use a race coefficient. Blood Venous blood specimen / Unknown Venipuncture / Unknown 10/18/2024 10:56 PM EDT 10/18/2024 11:07 PM EDT us Hilton Montelongo MD LAB BLOOD ORDERABLES Final Re sult Performing Organization Address City/[facility]/ZIP Co de Phone Number [facility] [address] [place] [address] * (ABNORMAL) Aldosterone (10/18/2024 10:56 PM EDT) Aldosterone 115.0(H) 4.0 - 31.0 ng/dL 10/21/2024 8:21 AM EDT [facility] Blood Venous blood specimen / Unknown Venipuncture / Unknown 10/18/2024 10:56 PM EDT 10/18/2024 11:29 PM EDT us Santos Herrmann MD LAB BLOOD ORDERABLES Final Resu lt [facility] [address] [place] [address] * (ABNORMAL) Plasma Renin Activity (LC/MS/MS) (10/18/2024 10:56 PM EDT) PRA RESULT 30.67(H) 0.25 - 5.82 ng/mL/h 10/24/2024 7:47 PM EDT [facility] ([facility]) Comment: This test was developed and its analytical performance characteristics have been determined by [employer]. It has not been cleared or approved by the FDA. This assay has been validated pursuant to the CLIA regulations and is used for clinical purposes. Blood Venous blood specimen / Unknown Venipuncture / Unknown 10/18/2024 10:56 PM EDT 10/18/2024 11:08 PM EDT Narrative [facility] ([facility]) - 10/24/2024 7:47 PM EDT Performing Organization Information: Site ID: [id number] Name: [facility] Address: [address] [place] [id number] Director: Malik Islas MD, PhD Santos Herrmann MD LAB BLOOD ORDERABLES Final Resu lt Performing Organization Address City/[facility]/ZIP Co de Phone Number [facility] ([facility]) [employer] [address] [address] * (ABNORMAL) Phosphorus, Plasma (10/18/2024 6:30 PM EDT) Phosphorus, Plasma 1.8(L) 2.5 - 4.5 mg/dL 10/18/2024 7:14 PM EDT [facility] Blood Venous blood specimen / Unknown Venipuncture / Unknown 10/18/2024 6:30 PM EDT 10/18/2024 6:42 PM EDT us Hilton Montelongo MD LAB BLOOD ORDERABLES Final Re sult [facility] [address] [place] [address] * (ABNORMAL) Magnesium (10/18/2024 6:30 PM EDT) Magnesium, Plasma 2.5(H) 1.9 - 2.4 mg/dL 10/18/2024 7:14 PM EDT [facility] Blood Venous blood specimen / Unknown Venipuncture / Unknown 10/18/2024 6:30 PM EDT 10/18/2024 6:42 PM EDT us Hilton Montelongo MD LAB BLOOD ORDERABLES Final Re sult [facility] [address] [place] [address] * (ABNORMAL) Basic metabolic panel (10/18/2024 6:30 PM EDT) Glucose, Plasma 100(H) 74 - 99 mg/dL 10/18/2024 7:14 PM EDT [facility] BUN, Plasma 7 7 - 21 mg/dL 10/18/2024 7:14 PM EDT [facility] Creatinine, Plasma 0.65 0.60 - 1.10 mg/dL 10/18/2024 7:14 PM EDT [facility] BUN/Creatinine Ratio 11 10/18/2024 7:14 PM EDT [facility] Sodium, Plasma 137 136 - 145 mmol/L 10/18/2024 7:14 PM EDT [facility] Potassium, Plasma 3.9 3.6 - 4.9 mmol/L 10/18/2024 7:14 PM EDT [facility] Chloride, Plasma 102 97 - 107 mmol/L 10/18/2024 7:14 PM EDT [facility] CO2, Plasma 25 22 - 29 mmol/L 10/18/2024 7:14 PM EDT [facility] Anion Gap 10 6 - 16 mmol/L 10/18/2024 7:14 PM EDT [facility] Total Calcium, Plasma 8.1(L) 8.9 - 10.2 mg/dL 10/18/2024 7:14 PM EDT [facility] eGFRcr 119.4 mL/min/1.7 3m*2 10/18/2024 7:14 PM EDT [facility] Comment:Reported eGFRcr in m L/min/1.73m2 is based the CKD-EPI 2020 equation that does not use a race coefficient. Blood Venous blood specimen / Unknown Venipuncture / Unknown 10/18/2024 6:30 PM EDT 10/18/2024 6:42 PM EDT Hilton Montelongo MD LAB BLOOD ORDERABLES Final Re sult [facility] [address] [place] [address] * Group B Streptococcus by PCR (10/18/2024 1:47 PM EDT) [facility] Group B Streptococcus PCR Result Not Detected Not Detected 10/20/2024 7:26 AM EDT [facility] Swab Rectovaginal / Unknown Non-blood Collection / Unknown 10/18/2024 1:47 PM EDT 10/18/2024 1:59 PM EDT Narrative [facility] - 10/20/2024 7:26 AM EDT This [...] OR DERABLES Final Result Performing Organization Address City/[facility]/[place] [address] * (ABNORMAL) Phosphorus, Plasma (10/18/2024 1:47 PM EDT) [facility] Phosphorus, Plasma 1.5(L) 2.5 - 4.5 mg/dL 10/18/2024 3:05 PM EDT [facility] Blood Venous blood specimen / Unknown Venipuncture / Unknown 10/18/2024 1:47 PM EDT 10/18/2024 2:26 PM EDT Hilton Montelongo MD LAB BLOOD ORDERABLES Final Re sult [facility] [address] [place] [address] * (ABNORMAL) Magnesium (10/18/2024 1:47 PM EDT) Magnesium, Plasma 1.7(L) 1.9 - 2.4 mg/dL 10/18/2024 3:05 PM EDT [facility] Blood Venous blood specimen / Unknown Venipuncture / Unknown 10/18/2024 1:47 PM EDT 10/18/2024 2:26 PM EDT us Hilton Montelongo MD LAB BLOOD ORDERABLES Final Re sult [facility] [address] [place] [address] * (ABNORMAL) Basic metabolic panel (10/18/2024 1:47 PM EDT) Pathologist [facility] Glucose, Plasma 119(H) 74 - 99 mg/dL 10/18/2024 3:05 PM EDT [facility] BUN, Plasma 8 7 - 21 mg/dL 10/18/2024 3:05 PM EDT [facility] Creatinine, Plasma 0.64 0.60 - 1.10 mg/dL 10/18/2024 3:05 PM EDT [facility] BUN/Creatinine Ratio 13 10/18/2024 3:05 PM EDT [facility] Sodium, Plasma 132(L) 136 - 145 mmol/L 10/18/2024 3:05 PM EDT [facility] Potassium, Plasma 3.9 3.6 - 4.9 mmol/L 10/18/2024 3:05 PM EDT [facility] Chloride, Plasma 98 97 - 107 mmol/L 10/18/2024 3:05 PM EDT [facility] CO2, Plasma 23 22 - 29 mmol/L 10/18/2024 3:05 PM EDT [facility] Anion Gap 11 6 - 16 mmol/L 10/18/2024 3:05 PM EDT [facility] Total Calcium, Plasma 8.0(L) 8.9 - 10.2 mg/dL 10/18/2024 3:05 PM EDT [facility] eGFRcr 119.8 mL/min/1.7 3m*2 10/18/2024 3:05 PM EDT [facility] Comment:Reported eGFRcr in m L/min/1.73m2 is based the CKD-EPI 2020 equation that does not use a race coefficient. Blood Venous blood specimen / Unknown Venipuncture / Unknown 10/18/2024 1:47 PM EDT 10/18/2024 2:26 PM EDT us Hilton Montelongo MD LAB BLOOD ORDERABLES Final Re sult Performing Organization Address [facility]/[place] [address] * (ABNORMAL) Phosphorus, Plasma (10/18/2024 1:46 PM EDT) Phosphorus, Plasma 1.5(L) 2.5 - 4.5 mg/dL 10/18/2024 3:05 PM EDT [facility] Blood Venous blood specimen / Unknown Venipuncture / Unknown 10/18/2024 1:46 PM EDT 10/18/2024 2:26 PM EDT Result Jaden Montelongo MD LAB BLOOD ORDERABLES Final Re sult Performing Organization Address [facility] [place] [place] [address] * (ABNORMAL) Magnesium (10/18/2024 1:46 PM EDT) Magnesium, Plasma 1.7(L) 1.9 - 2.4 mg/dL 10/18/2024 3:05 PM EDT [facility] Blood Venous blood specimen / Unknown Venipuncture / Unknown 10/18/2024 1:46 PM EDT 10/18/2024 2:26 PM EDT us Hilton Montelongo MD LAB BLOOD ORDERABLES Final Re sult Performing Organization Address [facility] [place] [place] [address] * (ABNORMAL) Basic metabolic panel (10/18/2024 1:46 PM EDT) Glucose, Plasma 121(H) 74 - 99 mg/dL 10/18/2024 3:05 PM EDT [facility] BUN, Plasma 8 7 - 21 mg/dL 10/18/2024 3:05 PM EDT [facility] Creatinine, Plasma 0.65 0.60 - 1.10 mg/dL 10/18/2024 3:05 PM EDT [facility] BUN/Creatinine Ratio 12 10/18/2024 3:05 PM EDT [facility] Sodium, Plasma 134(L) 136 - 145 mmol/L 10/18/2024 3:05 PM EDT [facility] Potassium, Plasma 4.0 3.6 - 4.9 mmol/L 10/18/2024 3:05 PM EDT [facility] Chloride, Plasma 100 97 - 107 mmol/L 10/18/2024 3:05 PM EDT [facility] CO2, Plasma 23 22 - 29 mmol/L 10/18/2024 3:05 PM EDT [facility] Anion Gap 11 6 - 16 mmol/L 10/18/2024 3:05 PM EDT [facility] Total Calcium, Plasma 8.0(L) 8.9 - 10.2 mg/dL 10/18/2024 3:05 PM EDT [facility] eGFRcr 119.4 mL/min/1.7 3m*2 10/18/2024 3:05 PM EDT [facility] Comment:Reported eGFRcr in m L/min/1.73m2 is based the CKD-EPI 2020 equation that does not use a race coefficient. Blood Venous blood specimen / Unknown Venipuncture / Unknown 10/18/2024 1:46 PM EDT 10/18/2024 2:26 PM EDT us Hilton Monetlongo MD LAB BLOOD ORDERABLES Final Re sult [facility] [address] [place] [address] * ECHO, ADULT TRANSTHORACIC COMPLETE (10/18/2024 11:40 [...] Root Diam 31 mm RILEY ISCV PA MI(ACCEL) 28.2 mmHg RILEY ISCV LVLs ap2 6.7 [...] is no recent study available for direct oyij-qz-efgh comparison. Patient is 33 wks 5 days [...] is no recent study available for direct iixx-ct-ypnp comparison. us Hilton Montelongo MD CV ECHO PROCEDURES Final Resu lt * POCT glucose meter (10/18/2024 9:42 AM EDT) [facility] POCT Glucose 78 74 - 99 mg/dL [...] Comment 10/18/2024 9:52 AM EDT [facility] Bench Lay Out Technician ID Tex Harman 025 9:52 AM EDT [facility] Device ID [id number] 10/18/2024 9:52 AM EDT [facility] Specimen Type POC Capillary 10/18/2024 9:52 AM EDT [facility] Blood Capillary blood specimen / Unknown 10/18/2024 9:42 AM EDT 10/18/2024 9:52 AM EDT us Hilton Montelongo MD LAB POINT OF CARE TE ST DOCKED DEVICE UNSOLICITED RESULTS Final Result Performing Organization Address City/[facility]/ZIP Co de Phone Number [facility] [address] [place] [address] * Light Green Top (10/18/2024 9:14 AM EDT) [facility] Extra Hold for add-ons 10/18/2024 12:01 PM EDT [facility] Comment:Auto resulted. Blood Venous blood specimen / Unknown 10/18/2024 9:14 AM EDT 10/18/2024 9:27 AM EDT us Hilton Montelongo MD LAB BLOOD ORDERABLES Final Re sult [facility] [address] [place] [address] * Phosphorus, Plasma (10/18/2024 9:14 AM EDT) Phosphorus, Plasma 3.2 2.5 - 4.5 mg/dL 10/18/2024 10:29 AM EDT [facility] Blood Venous blood specimen / Unknown Venipuncture / Unknown 10/18/2024 9:14 AM EDT 10/18/2024 9:36 AM EDT Hilton Montelongo MD LAB BLOOD ORDERABLES Final Re sult Performing Organization Address [facility]/ZIP Co de Phone Number [facility] [address] [place] [address] * (ABNORMAL) Magnesium (10/18/2024 9:14 AM EDT) Magnesium, Plasma 1.8(L) 1.9 - 2.4 mg/dL 10/18/2024 10:29 AM EDT [facility] Blood Venous blood specimen / Unknown Venipuncture / Unknown 10/18/2024 9:14 AM EDT 10/18/2024 9:36 AM EDT Hilton Montelongo MD LAB BLOOD ORDERABLES Final Re sult Performing Organization Address [facility]/ZIP Co de Phone Number [facility] [address] [place] [address] * (ABNORMAL) Basic metabolic panel (10/18/2024 9:14 AM EDT) Glucose, Plasma 76 74 - 99 mg/dL 10/18/2024 10:29 AM EDT [facility] BUN, Plasma 9 7 - 21 mg/dL 10/18/2024 10:29 AM EDT [facility] Creatinine, Plasma 0.66 0.60 - 1.10 mg/dL 10/18/2024 10:29 AM EDT [facility] BUN/Creatinine Ratio 14 10/18/2024 10:29 AM EDT [facility] Sodium, Plasma 134(L) 136 - 145 mmol/L 10/18/2024 10:29 AM EDT [facility] Potassium, Plasma 3.2(L) 3.6 - 4.9 mmol/L 10/18/2024 10:29 AM EDT [facility] Chloride, Plasma 94(L) 97 - 107 mmol/L 10/18/2024 10:29 AM EDT [facility] CO2, Plasma 27 22 - 29 mmol/L 10/18/2024 10:29 AM EDT [facility] Anion Gap 13 6 - 16 mmol/L 10/18/2024 10:29 AM EDT [facility] Total Calcium, Plasma 8.2(L) 8.9 - 10.2 mg/dL 10/18/2024 10:29 AM EDT [facility] eGFRcr 119.0 mL/min/1.7 3m*2 10/18/2024 10:29 AM EDT [facility] Comment:Reported eGFRcr in m L/min/1.73m2 is based the CKD-EPI 2020 equation that does not use a race coefficient. Blood Venous blood specimen / Unknown Venipuncture / Unknown 10/18/2024 9:14 AM EDT 10/18/2024 9:36 AM EDT us Hilton Montelongo MD LAB BLOOD ORDERABLES Final Re sult [facility] [address] [place] [address] * ECG Adult (10/18/2024 8:54 AM EDT) EKG DIAGNOSIS CLASS Abnormal MUSE ECG Ventricular Rate 95 BPM MUSE ECG Atrial Rate 95 BPM MUSE ECG MI Interval 146 ms MUSE ECG QRSD Interval 80 ms MUSE ECG QT Interval 346 ms MUSE ECG QTC Interval 434 ms MUSE ECG P [place] 53 degrees MUSE ECG R [place] 46 degrees MUSE ECG T Wave [place] 42 degrees MUSE ECG Diagnosis Sinus rhythm with frequent premature ventricular complexes and premature atrial complexes MUSE ECG Diagnosis Nonspecific ST abnormality MUSE ECG Diagnosis Abnormal ECG MUSE ECG Diagnosis MUSE ECG Diagnosis Confirmed by Amish Paz ([id number]) on 10/18/2024 1:47:52 PM MUSE ECG 10/18/2024 8:54 AM EDT 10/18/2024 1:47 PM EDT Result [facility] Hilton Montelongo MD ECG ORDERABLES Final Result MUSE ECG * OB US Biophysical Profile wo Non Stress Testing (10/18/2024 8:50 AM EDT) Anatomical Region Laterality Modality Body Ultrasound 10/18/2024 8:28 AM EDT Impressions 10/18/2024 9:40 AM EDT The OB Ultrasound you requested has been resulted. Please navigate to the Imaging tab in [employer] for review. This message has been generated by the interface. Narrative Procedure Note Nneka Gipson MD - 10/18/2024 IMPRESSION: The OB Ultrasound you requested has been resulted. Please navigate to theImaging tab in [employer] for review. This message has been generated by [employer]. Result [facility] Hilton Montelongo MD IMG OB US PROCEDURES Final Re sult * Protein, Random, Urine with Creatinine (10/18/2024 4:03 AM EDT) Protein, Urine 10 mg/dL 10/18/2024 4:44 AM EDT [facility] Creatinine, Urine 62 mg/dL 10/18/2024 4:44 AM EDT [facility] Protein/Creatin ine Ratio 0.2 mg/mg Creat 10/18/2024 4:44 AM EDT [facility] Urine Urine specimen obtained by clean catch procedure / Unknown Non-blood Collection / Unknown 10/18/2024 4:03 AM EDT 10/18/2024 4:11 AM EDT Result [facility] Hilton Montelongo MD LAB URINE ORDERABLES Final Re sult [facility] [address] [place] [address] * (ABNORMAL) Ionized calcium, whole blood (10/18/2024 3:38 AM EDT) Ionized Calcium, Whole Blood 4.3(L) 4.6 - 5.1 mg/dL LAB HEMATOLOGY METHOD 10/18/2024 5:42 AM EDT [facility] Blood Venous blood specimen / Unknown Venipuncture / Unknown 10/18/2024 3:38 AM EDT 10/18/2024 3:48 AM EDT us Hilton Montelongo MD LAB BLOOD ORDERABLES Final Re sult [facility] [address] [place] [address] * (ABNORMAL) Blood gas panel, venous (10/18/2024 3:38 AM EDT) Pathologist [facility] pH, Venous 7.47(H) 7.32 - 7.43 LAB HEMATOLOGY METHOD 10/18/2024 3:50 AM EDT [facility] pCO2, Venous 44 37 - 52 mmHg LAB HEMATOLOGY METHOD 10/18/2024 3:50 AM EDT [facility] pO2, Venous 115(H) 25 - 40 mmHg LAB HEMATOLOGY METHOD 10/18/2024 3:50 AM EDT [facility] SO2, Measured, Venous 100(H) 65 - 80 % LAB HEMATOLOGY METHOD 10/18/2024 3:50 AM EDT [facility] Base Excess, Venous 7.1(H) -2.0 - 3.0 mmol/L LAB HEMATOLOGY METHOD 10/18/2024 3:50 AM EDT [facility] Bicarbonate, Calculated, Venous 32(H) 22 - 26 mmol/L LAB HEMATOLOGY METHOD 10/18/2024 3:50 AM EDT [facility] Hematocrit, Whole Blood 27.5(L) 34.0 - 45.0 % LAB HEMATOLOGY METHOD 10/18/2024 3:50 AM EDT [facility] Sodium, Whole Blood 133(L) 136 - 145 mmol/L LAB HEMATOLOGY METHOD 10/18/2024 3:50 AM EDT [facility] Potassium, Whole Blood 2.8(L) 3.6 - 4.9 mmol/L LAB HEMATOLOGY METHOD 10/18/2024 3:50 AM EDT [facility] Chloride, Whole Blood 91(L) 97 - 107 mmol/L LAB HEMATOLOGY METHOD 10/18/2024 3:50 AM EDT [facility] Glucose, Whole Blood 72(L) 74 - 99 mg/dL LAB HEMATOLOGY METHOD 10/18/2024 3:50 AM EDT [facility] Lactate, Venous, Whole Blood 0.7 0.5 - 2.2 mmol/L LAB HEMATOLOGY METHOD 10/18/2024 3:50 AM EDT [facility] Ionized Calcium, Whole Blood 4.3(L) 4.6 - 5.1 mg/dL LAB HEMATOLOGY METHOD 10/18/2024 3:50 AM EDT [facility] Blood Venous blood specimen / Unknown Venipuncture / Unknown 10/18/2024 3:38 AM EDT 10/18/2024 3:48 AM EDT Hilton Montelongo MD LAB BLOOD ORDERABLES Final Re sult Performing Organization Address [facility]/ZIP Co de Phone Number [facility] [address] [place] [address] * Phosphorus, Plasma (10/18/2024 3:38 AM EDT) Phosphorus, Plasma 3.4 2.5 - 4.5 mg/dL 10/18/2024 4:17 AM EDT [facility] Blood Venous blood specimen / Unknown Venipuncture / Unknown 10/18/2024 3:38 AM EDT 10/18/2024 3:49 AM EDT Hilton Montelongo MD LAB BLOOD ORDERABLES Final Re sult [facility] [address] [place] [address] * Magnesium (10/18/2024 3:38 AM EDT) Magnesium, Plasma 2.1 1.9 - 2.4 mg/dL 10/18/2024 4:17 AM EDT [facility] Blood Venous blood specimen / Unknown Venipuncture / Unknown 10/18/2024 3:38 AM EDT 10/18/2024 3:49 AM EDT us Hilton Montelongo MD LAB BLOOD ORDERABLES Final Re sult [facility] [address] [place] [address] * (ABNORMAL) Basic metabolic panel (10/18/2024 3:38 AM EDT) Glucose, Plasma 73(L) 74 - 99 mg/dL 10/18/2024 4:17 AM EDT [facility] BUN, Plasma 8 7 - 21 mg/dL 10/18/2024 4:17 AM EDT [facility] Creatinine, Plasma 0.66 0.60 - 1.10 mg/dL 10/18/2024 4:17 AM EDT [facility] BUN/Creatinine Ratio 12 10/18/2024 4:17 AM EDT [facility] Sodium, Plasma 133(L) 136 - 145 mmol/L 10/18/2024 4:17 AM EDT [facility] Potassium, Plasma 3.1(L) 3.6 - 4.9 mmol/L 10/18/2024 4:17 AM EDT [facility] Chloride, Plasma 92(L) 97 - 107 mmol/L 10/18/2024 4:17 AM EDT [facility] CO2, Plasma 27 22 - 29 mmol/L 10/18/2024 4:17 AM EDT [facility] Anion Gap 14 6 - 16 mmol/L 10/18/2024 4:17 AM EDT [facility] Total Calcium, Plasma 8.0(L) 8.9 - 10.2 mg/dL 10/18/2024 4:17 AM EDT [facility] eGFRcr 119.0 mL/min/1.7 3m*2 10/18/2024 4:17 AM EDT [facility] Comment:Reported eGFRcr in m L/min/1.73m2 is based the CKD-EPI 2020 equation that does not use a race coefficient. Blood Venous blood specimen / Unknown Venipuncture / Unknown 10/18/2024 3:38 AM EDT 10/18/2024 3:49 AM EDT Hilton Montelongo MD LAB BLOOD ORDERABLES Final Re sult Performing Organization Address City/[facility]/ZIP Co de Phone Number [facility] [address] [place] [address] * Bile acids, total (10/18/2024 1:12 AM EDT) BILE ACIDS, TOTAL 5 0 - 10 umol/L 10/20/2024 12:29 AM EDT [facility] ([email or web address]) Blood Venous blood specimen / Unknown Venipuncture / Unknown 10/18/2024 1:12 AM EDT 10/18/2024 1:18 AM EDT Narrative [facility] ([facility]) - 10/20/2024 12:29 AM EDT INTERPRETIVE INFORMATION: Bile Acids, Total Reference Interval applies to fasting specimens. Performed By: [employer] [address] [place] [address] Machine Maintenance Repairer: Brandon Bell MD, PhD CLIA Number: [id number] Result [facility] Hilton Montelongo MD LAB BLOOD ORDERABLES Final Re sult Performing Organization Address [facility] Co de Phone Number [employer]) [address] [place] [address] * Troponin T, High Sensitivity, 2 Hour, Plasma (10/18/2024 1:12 AM EDT) Pathologist [facility] Troponin T, High Sensitivity, 2 Hour <6 <14 ng/L 10/18/2024 1:46 AM EDT [facility] Blood Venous blood specimen / Unknown Venipuncture / Unknown 10/18/2024 1:12 AM EDT 10/18/2024 1:18 AM EDT Hilton Montelongo MD LAB BLOOD ORDERABLES Final Re sult Performing Organization Address City/[facility]/ZIP Co de Phone Number [facility] [address] [place] [address] * Group A Streptococcus by PCR (10/17/2024 11:25 PM EDT) Group A Streptococcus PCR Result Not Detected Not Detected 10/18/2024 12:38 AM EDT [facility] Swab Structure of peritonsillar tissue / Unknown Non-blood Collection / Unknown 10/17/2024 11:25 PM EDT 10/17/2024 11:49 PM EDT Hilton Montelongo MD LAB MICROBIOLOGY - GENERAL OR DERABLES Final Result Performing Organization Address City/State/[facility] Co de Phone Number [facility] [address] [place] [address] * ECG Adult (10/17/2024 10:50 PM EDT) Pathologist [facility] EKG DIAGNOSIS CLASS Borderline Normal MUSE ECG Ventricular Rate 92 BPM MUSE ECG Atrial Rate 92 BPM MUSE ECG MI Interval 142 ms MUSE ECG QRSD Interval 78 ms MUSE ECG QT Interval 366 ms MUSE ECG QTC Interval 452 ms MUSE ECG P [place] 62 degrees MUSE ECG R [place] 45 degrees MUSE ECG T Wave [place] 61 degrees MUSE ECG Diagnosis Sinus rhythm with premature atrial complexes with aberrant conduction MUSE ECG Diagnosis Otherwise normal ECG MUSE ECG Diagnosis MUSE ECG Diagnosis Confirmed by Amish Paz ([id number]) on 10/18/2024 8:04:52 PM MUSE ECG 10/17/2024 10:5 0 PM EDT 10/18/2024 8:04 PM EDT us Hilton Montelongo MD ECG ORDERABLES Final Result Performing Organization Address City/[facility] Co de Phone Number MUSE ECG * Magnesium (10/17/2024 10:41 PM EDT) Pathologist [facility] Magnesium, Plasma 2.2 1.9 - 2.4 mg/dL 10/17/2024 11:16 PM EDT [facility] Blood Venous blood specimen / Unknown Venipuncture / Unknown 10/17/2024 10:41 PM EDT 10/17/2024 10:45 PM EDT Hilton Montelongo MD LAB BLOOD ORDERABLES Final Re sult Performing Organization Address City/[facility]/ZIP Co de Phone Number [facility] [address] [place] [address] * Troponin T, High Sensitivity, 0 Hour Plasma, Reflex to 2 Hour (10/17/2024 10:41 PM EDT) Pathologist [facility] Troponin T, High Sensitivity, 0 Hour <6 <14 ng/L 10/17/2024 11:16 PM EDT [facility] Blood Venous blood specimen / Unknown Venipuncture / Unknown 10/17/2024 10:41 PM EDT 10/17/2024 10:45 PM EDT us Hilton Montelongo MD LAB BLOOD ORDERABLES Final Re sult Performing Organization Address [facility]/ZIP Co de Phone Number [facility] [address] [place] [address] * (ABNORMAL) Blood gas panel, venous (10/17/2024 10:41 PM EDT) Pathologist [facility] pH, Venous 7.62(HH) 7.32 - 7.43 LAB HEMATOLOGY METHOD 10/17/2024 10:47 PM EDT [facility] pCO2, Venous 31(L) 37 - 52 mmHg LAB HEMATOLOGY METHOD 10/17/2024 10:47 PM EDT [facility] pO2, Venous 185(H) 25 - 40 mmHg LAB HEMATOLOGY METHOD 10/17/2024 10:47 PM EDT [facility] SO2, Measured, Venous 100(H) 65 - 80 % LAB HEMATOLOGY METHOD 10/17/2024 10:47 PM EDT [facility] Base Excess, Venous 10.6(H) -2.0 - 3.0 mmol/L LAB HEMATOLOGY METHOD 10/17/2024 10:47 PM EDT [facility] Bicarbonate, Calculated, Venous 32(H) 22 - 26 mmol/L LAB HEMATOLOGY METHOD 10/17/2024 10:47 PM EDT [facility] Hematocrit, Whole Blood 29.4(L) 34.0 - 45.0 % LAB HEMATOLOGY METHOD 10/17/2024 10:47 PM EDT [facility] Sodium, Whole Blood 132(L) 136 - 145 mmol/L LAB HEMATOLOGY METHOD 10/17/2024 10:47 PM EDT [facility] Potassium, Whole Blood 2.3(LL) 3.6 - 4.9 mmol/L LAB HEMATOLOGY METHOD 10/17/2024 10:47 PM EDT [facility] Chloride, Whole Blood 87(L) 97 - 107 mmol/L LAB HEMATOLOGY METHOD 10/17/2024 10:47 PM EDT [facility] Glucose, Whole Blood 76 74 - 99 mg/dL LAB HEMATOLOGY METHOD 10/17/2024 10:47 PM EDT [facility] Lactate, Venous, Whole Blood 1.1 0.5 - 2.2 mmol/L LAB HEMATOLOGY METHOD 10/17/2024 10:47 PM EDT [facility] Ionized Calcium, Whole Blood 4.2(L) 4.6 - 5.1 mg/dL LAB HEMATOLOGY METHOD 10/17/2024 10:47 PM EDT [facility] Blood Venous blood specimen / Unknown Venipuncture / Unknown 10/17/2024 10:41 PM EDT 10/17/2024 10:45 PM EDT us Hilton Montelongo MD LAB BLOOD ORDERABLES Final Re sult [facility] [address] [place] [address] * (ABNORMAL) Comprehensive metabolic panel (10/17/2024 10:41 PM EDT) Glucose, Plasma 77 74 - 99 mg/dL 10/17/2024 11:16 PM EDT [facility] BUN, Plasma 9 7 - 21 mg/dL 10/17/2024 11:16 PM EDT [facility] Creatinine, Plasma 0.70 0.60 - 1.10 mg/dL 10/17/2024 11:16 PM EDT [facility] BUN/Creatinine Ratio 13 10/17/2024 11:16 PM EDT [facility] Sodium, Plasma 132(L) 136 - 145 mmol/L 10/17/2024 11:16 PM EDT [facility] Potassium, Plasma 2.5(LL) 3.6 - 4.9 mmol/L 10/17/2024 11:16 PM EDT [facility] Chloride, Plasma 88(L) 97 - 107 mmol/L 10/17/2024 11:16 PM EDT [facility] CO2, Plasma 27 22 - 29 mmol/L 10/17/2024 11:16 PM EDT [facility] Anion Gap 17(H) 6 - 16 mmol/L 10/17/2024 11:16 PM EDT [facility] Total Calcium, Plasma 8.4(L) 8.9 - 10.2 mg/dL 10/17/2024 11:16 PM EDT [facility] Total Protein 5.8(L) 6.3 - 7.9 g/dL 10/17/2024 11:16 PM EDT [facility] Albumin, Plasma 3.0(L) 3.5 - 5.2 g/dL 10/17/2024 11:16 PM EDT [facility] AST, Plasma 69(H) 10 - 35 U/L 10/17/2024 11:16 PM EDT [facility] ALT, Plasma 76(H) 10 - 35 U/L 10/17/2024 11:16 PM EDT [facility] Alkaline Phosphatase, Plasma 76 35 - 104 U/L 10/17/2024 11:16 PM EDT [facility] Total Bilirubin, Plasma 0.7 0.2 - 1.1 mg/dL 10/17/2024 11:16 PM EDT [facility] eGFRcr 117.3 mL/min/1.7 3m*2 10/17/2024 11:16 PM EDT [facility] Comment:Reported eGFRcr in m L/min/1.73m2 is based the CKD-EPI 2020 equation that does not use a race coefficient. Blood Venous blood specimen / Unknown Venipuncture / Unknown 10/17/2024 10:41 PM EDT 10/17/2024 10:45 PM EDT us Hilton Montelongo MD LAB BLOOD ORDERABLES Final Re sult [facility] [address] [place] [address] * (ABNORMAL) CBC (10/17/2024 10:41 PM EDT) WBC Count 10.63(H) 3.70 - 10.30 10*3/uL LAB HEMATOLOGY METHOD 10/17/2024 10:53 PM EDT [facility] RBC Count 3.27(L) 3.90 - 5.20 10*6/uL LAB HEMATOLOGY METHOD 10/17/2024 10:53 PM EDT [facility] HGB 9.7(L) 11.2 - 15.7 g/dL LAB HEMATOLOGY METHOD 10/17/2024 10:53 PM EDT [facility] HCT 28.7(L) 34.0 - 45.0 % LAB HEMATOLOGY METHOD 10/17/2024 10:53 PM EDT [facility] Platelet Count 185 155 - 369 10*3/uL LAB HEMATOLOGY METHOD 10/17/2024 10:53 PM EDT [facility] MCV 88 79 - 98 fL LAB HEMATOLOGY METHOD 10/17/2024 10:53 PM EDT [facility] MCH 29.7 26.0 - 32.0 pg LAB HEMATOLOGY METHOD 10/17/2024 10:53 PM EDT [facility] MCHC 33.8 30.7 - 35.5 g/dL LAB HEMATOLOGY METHOD 10/17/2024 10:53 PM EDT [facility] RDW 15.8(H) 11.5 - 14.5 % LAB HEMATOLOGY METHOD 10/17/2024 10:53 PM EDT [facility] MPV 12.3 8.8 - 12.5 fL LAB HEMATOLOGY METHOD 10/17/2024 10:53 PM EDT [facility] nRBC 0.0 <=0.0 per 100 WBCs LAB HEMATOLOGY METHOD 10/17/2024 10:53 PM EDT [facility] Blood Venous blood specimen / Unknown Venipuncture / Unknown 10/17/2024 10:41 PM EDT 10/17/2024 10:45 PM EDT us Hilton Montelongo MD LAB BLOOD ORDERABLES Final Re sult [facility] [address] [place] [address] * SARS CoV-2/COVID-19 by PCR (10/17/2024 8:50 PM EDT) [facility] SARS CoV-2/COVID-1 9 RNA PCR Result Not Detected Not Detected 10/19/2024 1:56 AM EDT [facility] Swab Nasopharyngeal structure / Unknown Non-blood Collection / Unknown 10/17/2024 8:50 PM EDT 10/17/2024 9:28 PM EDT Narrative [facility] - 10/19/2024 1:56 AM EDT This [...] MICROBIOLOGY - GENERAL OR DERABLES Final Result [facility] [address] [place] [address] * Nasopharyngeal Respiratory Panel (10/17/2024 8:50 PM EDT) [facility] Nasopharyngeal Respiratory PCR Interpretation Not Detected for all analytes Not Detected for all analytes 10/17/2024 11:23 PM EDT [facility] Swab Nasopharyngeal structure / Unknown Non-blood Collection / Unknown 10/17/2024 8:50 PM EDT 10/17/2024 9:28 PM EDT Narrative [facility] - 10/17/2024 11:23 PM EDT This [...] Respiratory PCR Panel is performed using the Spocklylex instrument. This test is FDA approved for use with Nasopharyngeal swabs only. This test is used for clinical purposes. It should not be regarded as investigational or for research. The [facility] is certified under the Clinical Laboratory Improvement Amendments of 1988 (CLIA-88) as qualified to perform high complexity clinical laboratory testing. Hilton Montelongo MD LAB MICROBIOLOGY - GENERAL OR DERABLES Final Result Performing Organization Address [facility]/ZIP Co de Phone Number [facility] [address] [place] [address] * Treponema Pallidum (Syphilis) Antibodies with Reflex to RPR and RPR Titer (Those with NO known Syphilis) (10/17/2024 7:31 PM EDT) Pathologist [facility] Syphilis Antibody (IgG+IgM) Nonreactive Nonreactive 10/17/2024 10:00 PM EDT [facility] Comment:Nonreactive. No sero logic evidence of syphilis. No follow-up necessary unless clinically indicated (e.g., early syphilis). Blood Venous blood specimen / Unknown Venipuncture / Unknown 10/17/2024 7:31 PM EDT 10/17/2024 7:44 PM EDT Hilton Montelongo MD LAB BLOOD ORDERABLES Final Re sult Performing Organization Address [facility]/ZIP Co de Phone Number [facility] [address] [place] [address] * Type and Screen (10/17/2024 7:31 PM [...] ORDERABLE S Final Result Performing Organization Address [facility] Co de Phone Number BLOOD BANK [address] [place] [address], * Troponin T, High Sensitivity, 2 Hour, Plasma (10/17/2024 6:18 PM EDT) Troponin T, High Sensitivity, 2 Hour <6 <14 ng/L 10/17/2024 7:18 PM EDT [facility] Blood Venous blood specimen / Unknown Venipuncture / Unknown 10/17/2024 6:18 PM EDT 10/17/2024 6:46 PM EDT Job N Devine KEY PERSON, CNM LAB BLOOD ORDERABLES Final Result Performing Organization Address [facility] Co de Phone Number [facility] [address] [place] [address] * XR Chest 1 View (10/17/2024 4:38 [...] Morales MD on 10/17/2024 4:40 PM Job Devine APRN, CNM IMG XR PROCEDURES Fi nal Result * ECG Adult (10/17/2024 4:17 PM EDT) EKG DIAGNOSIS CLASS Borderline Normal MUSE ECG Ventricular Rate 116 BPM MUSE ECG Atrial Rate 116 BPM MUSE ECG MI Interval 140 ms MUSE ECG QRSD Interval 80 ms MUSE ECG QT Interval 324 ms MUSE ECG QTC Interval 450 ms MUSE ECG P [place] 63 degrees MUSE ECG R [place] 39 degrees MUSE ECG T Wave [place] 50 degrees MUSE ECG Diagnosis Sinus tachycardia with premature atrial complexes with aberrant conduction MUSE ECG Diagnosis Otherwise normal ECG MUSE ECG Diagnosis MUSE ECG Diagnosis Confirmed by Amish Paz ([id number]) on 10/18/2024 6:06:39 PM MUSE ECG 10/17/2024 4:17 PM EDT 10/18/2024 6:06 PM EDT Job Devine APRN, CNM ECG ORDERABLES Lena l Result MUSE ECG * (ABNORMAL) Uric acid (10/17/2024 4:05 PM EDT) Uric Acid, Plasma 10.1(H) 3.1 - 7.1 mg/dL 10/17/2024 9:51 PM EDT [facility] Blood Venous blood specimen / Unknown Venipuncture / Unknown 10/17/2024 4:05 PM EDT 10/17/2024 4:20 PM EDT us Hilton Montelongo MD LAB BLOOD ORDERABLES Final Re sult Performing Organization Address City/[facility]/ZIP Co de Phone Number [facility] [address] [place] [address] * (ABNORMAL) Lactate dehydrogenase (10/17/2024 4:05 PM EDT) LDH, Plasma 267(H) 116 - 250 U/L 10/17/2024 9:51 PM EDT [facility] Comment:Hemolyzed, result ma y be falsely increased. Blood Venous blood specimen / Unknown Venipuncture / Unknown 10/17/2024 4:05 PM EDT 10/17/2024 4:20 PM EDT us Hilton Montelongo MD LAB BLOOD ORDERABLES Final Re sult Performing Organization Address [facility]/ZIP Co de Phone Number [facility] [address] [place] [address] * Phosphorus (10/17/2024 4:05 PM EDT) Phosphorus, Plasma 2.5 2.5 - 4.5 mg/dL 10/17/2024 5:07 PM EDT [facility] Blood Venous blood specimen / Unknown Venipuncture / Unknown 10/17/2024 4:05 PM EDT 10/17/2024 4:20 PM EDT us Hilton Montelongo MD LAB BLOOD ORDERABLES Final Re sult Performing Organization Address City/[facility]/ZIP Co de Phone Number [facility] [address] [place] [address] * (ABNORMAL) Magnesium (10/17/2024 4:05 PM EDT) Magnesium, Plasma 1.4(L) 1.9 - 2.4 mg/dL 10/17/2024 5:07 PM EDT [facility] Blood Venous blood specimen / Unknown Venipuncture / Unknown 10/17/2024 4:05 PM EDT 10/17/2024 4:20 PM EDT Hilton Montelongo MD LAB BLOOD ORDERABLES Final Re sult Performing Organization Address City/[facility]/[place] [address] * N-Terminal Probnp (10/17/2024 4:05 PM EDT) N-Terminal, PROBNP, Plasma 125 0 - 449 pg/mL 10/17/2024 5:07 PM EDT [facility] Blood Venous blood specimen / Unknown Venipuncture / Unknown 10/17/2024 4:05 PM EDT 10/17/2024 4:20 PM EDT Job Devine APRN, CNAdeline LAB BLOOD ORDERABLES Final Result Performing Organization Address [facility] [place] [place] [address] * Troponin T, High Sensitivity, 0 Hour Plasma, Reflex to 2 Hour (10/17/2024 4:05 PM EDT) Troponin T, High Sensitivity, 0 Hour <6 <14 ng/L 10/17/2024 5:07 PM EDT [facility] Blood Venous blood specimen / Unknown Venipuncture / Unknown 10/17/2024 4:05 PM EDT 10/17/2024 4:20 PM EDT Job Devine KEY PERSON, CNM LAB BLOOD ORDERABLES Final Result Performing Organization Address City/[facility]/ZIP Co de Phone Number [facility] [address] [place] [address] * (ABNORMAL) D DIMER, QUANTITATIVE (10/17/2024 4:05 PM EDT) D Dimer, Quantitative 2.33(H) <0.50 ug/mL FEU LAB COAGULATION METHOD 10/17/2024 4:47 PM EDT [facility] Blood Venous blood specimen / Unknown Venipuncture / Unknown 10/17/2024 4:05 PM EDT 10/17/2024 4:19 PM EDT Narrative [facility] - 10/17/2024 4:47 PM EDT Test [...] in the clinical context. Job Devine APRN, CNM LAB BLOOD ORDERABLES Final Result [facility] [address] [place] [address] * (ABNORMAL) Comprehensive metabolic panel (10/17/2024 4:05 PM EDT) Glucose, Plasma 78 74 - 99 mg/dL 10/17/2024 5:07 PM EDT [facility] BUN, Plasma 9 7 - 21 mg/dL 10/17/2024 5:07 PM EDT [facility] Creatinine, Plasma 0.74 0.60 - 1.10 mg/dL 10/17/2024 5:07 PM EDT [facility] BUN/Creatinine Ratio 12 10/17/2024 5:07 PM EDT [facility] Sodium, Plasma 136 136 - 145 mmol/L 10/17/2024 5:07 PM EDT [facility] Potassium, Plasma 2.5(LL) 3.6 - 4.9 mmol/L 10/17/2024 5:07 PM EDT [facility] Chloride, Plasma 87(L) 97 - 107 mmol/L 10/17/2024 5:07 PM EDT [facility] CO2, Plasma 32(H) 22 - 29 mmol/L 10/17/2024 5:07 PM EDT [facility] Anion Gap 17(H) 6 - 16 mmol/L 10/17/2024 5:07 PM EDT [facility] Total Calcium, Plasma 9.0 8.9 - 10.2 mg/dL 10/17/2024 5:07 PM EDT [facility] Total Protein 6.5 6.3 - 7.9 g/dL 10/17/2024 5:07 PM EDT [facility] Albumin, Plasma 3.1(L) 3.5 - 5.2 g/dL 10/17/2024 5:07 PM EDT [facility] AST, Plasma 82(H) 10 - 35 U/L 10/17/2024 5:07 PM EDT [facility] ALT, Plasma 93(H) 10 - 35 U/L 10/17/2024 5:07 PM EDT [facility] Alkaline Phosphatase, Plasma 83 35 - 104 U/L 10/17/2024 5:07 PM EDT [facility] Total Bilirubin, Plasma 0.6 0.2 - 1.1 mg/dL 10/17/2024 5:07 PM EDT [facility] eGFRcr 109.7 mL/min/1.7 3m*2 10/17/2024 5:07 PM EDT [facility] Comment:Reported eGFRcr in m L/min/1.73m2 is based the CKD-EPI 2020 equation that does not use a race coefficient. Blood Venous blood specimen / Unknown Venipuncture / Unknown 10/17/2024 4:05 PM EDT 10/17/2024 4:20 PM EDT Job Devine KEY PERSON, CNM LAB BLOOD ORDERABLES Final Result [facility] [address] [place] [address] * (ABNORMAL) CBC and Differential (10/17/2024 4:05 PM EDT) WBC Count 9.54 3.70 - 10.30 10*3/uL LAB HEMATOLOGY METHOD 10/17/2024 4:41 PM EDT [facility] RBC Count 3.40(L) 3.90 - 5.20 10*6/uL LAB HEMATOLOGY METHOD 10/17/2024 4:41 PM EDT [facility] HGB 10.2(L) 11.2 - 15.7 g/dL LAB HEMATOLOGY METHOD 10/17/2024 4:41 PM EDT [facility] HCT 29.7(L) 34.0 - 45.0 % LAB HEMATOLOGY METHOD 10/17/2024 4:41 PM EDT [facility] Platelet Count 177 155 - 369 10*3/uL LAB HEMATOLOGY METHOD 10/17/2024 4:41 PM EDT [facility] MCV 87 79 - 98 fL LAB HEMATOLOGY METHOD 10/17/2024 4:41 PM EDT [facility] MCH 30.0 26.0 - 32.0 pg LAB HEMATOLOGY METHOD 10/17/2024 4:41 PM EDT [facility] MCHC 34.3 30.7 - 35.5 g/dL LAB HEMATOLOGY METHOD 10/17/2024 4:41 PM EDT [facility] RDW 15.9(H) 11.5 - 14.5 % LAB HEMATOLOGY METHOD 10/17/2024 4:41 PM EDT [facility] MPV 12.1 8.8 - 12.5 fL LAB HEMATOLOGY METHOD 10/17/2024 4:41 PM EDT [facility] nRBC 0.0 <=0.0 per 100 WBCs LAB HEMATOLOGY METHOD 10/17/2024 4:41 PM EDT [facility] Differential Type Automated LAB HEMATOLOGY METHOD 10/17/2024 4:41 PM EDT [facility] Neutrophils % 63 % LAB HEMATOLOGY METHOD 10/17/2024 4:41 PM EDT [facility] Lymphocytes % 24 % LAB HEMATOLOGY METHOD 10/17/2024 4:41 PM EDT [facility] Monocytes % 11 % LAB HEMATOLOGY METHOD 10/17/2024 4:41 PM EDT [facility] Eosinophils % 1 % LAB HEMATOLOGY METHOD 10/17/2024 4:41 PM EDT [facility] Basophils % 0 % LAB HEMATOLOGY METHOD 10/17/2024 4:41 PM EDT [facility] Immature Granulocytes % 1 % LAB HEMATOLOGY METHOD 10/17/2024 4:41 PM EDT [facility] Neutrophils Absolute 6.06 1.60 - 6.10 10*3/uL LAB HEMATOLOGY METHOD 10/17/2024 4:41 PM EDT [facility] Lymphocytes Absolute 2.31 1.20 - 3.90 10*3/uL LAB HEMATOLOGY METHOD 10/17/2024 4:41 PM EDT [facility] Monocytes Absolute 1.05(H) 0.30 - 0.90 10*3/uL LAB HEMATOLOGY METHOD 10/17/2024 4:41 PM EDT [facility] Eosinophils Absolute 0.06 0.00 - 0.50 10*3/uL LAB HEMATOLOGY METHOD 10/17/2024 4:41 PM EDT [facility] Basophils Absolute 0.01 0.00 - 0.10 10*3/uL LAB HEMATOLOGY METHOD 10/17/2024 4:41 PM EDT [facility] Immature Granulocytes Absolute 0.05 0.00 - 0.06 10*3/uL LAB HEMATOLOGY METHOD 10/17/2024 4:41 PM EDT [facility] Blood Venous blood specimen / Unknown Venipuncture / Unknown 10/17/2024 4:05 PM EDT 10/17/2024 4:24 PM EDT Narrative [facility] - 10/17/2024 4:41 PM EDT Therapeutic decision making should be based on absolute values, rather than percentages. Job Devine KEY PERSON, CNM LAB BLOOD ORDERABLES Final Result Performing Organization Address City/State/[facility] Co de Phone Number [facility] [address] [place] [address] documented in this encounter Visit Diagnoses Diagnosis [...] 2040, Until 10/20/24 at 1216, Routine, Pre-Delivery baclofen (Fleqsuvy) 25 MG/5ML oral suspension 10 mg 10 mg, Oral, 3 times daily, First dose on 10/19/24 at 2100, Until Discontinued, Routine Given 10/19/2024 11:38 PM EDT 10 mg calcium carbonate (Tums) chewable tablet 1,000 mg 1,000 mg, Oral, 4 times daily PRN, Starting on Mon10/17/24 at 1911, Until 10/20/24 at 1216, Routine, Pre-Delivery, indigestion, heartburn ceFAZolin (Ancef) injection 2 g 2 g, Intravenous, Once in OR, 1 dose, Starting on Carrie 10/17/24 at 2040, Until 10/20/24 at 1216, Routine, Pre-Delivery cyclobenzaprine (Flexeril) tablet 5 mg 5 mg, Oral, 3 times daily PRN, Starting on [place] 10/17/24 at 2338, Until 10/20/24 at 0744, Routine, muscle spasms Given 10/19/2024 12:19 PM EDT 5 mg Given 10/19/2024 1:21 AM EDT 5 mg Given 10/18/2024 6:39 PM EDT 5 mg dextrose 5 % and lactated Ringer's infusion 75 mL/hr, Intravenous, Continuous, Starting on Mon10/18/24 at 1030, Until [place] 10/20/24 at 1216, Routine New Bag 10/18/2024 10:25 AM EDT 75 mL/hr 75 mL /hr famotidine (Pepcid) tablet 20 mg 20 mg, Oral, 2 times daily PRN, Starting on Mon10/17/24 at 1911, Until 10/20/24 at 1216, Routine, Pre-Delivery, indigestion, heartburn, or inj IV famotidine PF (Pepcid) injection 20 mg 20 mg, Intravenous, 2 times daily PRN, Starting on [place] 10/17/24 at 1911, Until [place] 10/20/24 at 1216, Routine, Pre-Delivery, indigestion, heartburn, [...] Spit, 4 times daily PRN, Starting on Mon10/20/24 at 0402, Until Mon10/20/24 at 1216, Routine, mucositis magnesium oxide (Mag-Ox) [...] 2 g, Intravenous, Once, 1 dose, On Mon10/19/24 at 1715, Routine New Bag 10/19/2024 5:25 PM EDT 2 g 25 mL/hr magnesium sulfate IVPB 2 g 2 g, Intravenous, Once, 1 dose, On Mon10/20/24 at 0315, Routine New Bag 10/20/2024 3:25 AM EDT 2 g 25 [...] PRN, Starting on Mon10/17/24 at 2349, Until Mon10/20/24 at 1216, Routine, [...] Oral, Every 6 hours PRN, Starting on [facility] 10/17/24 at 1911, Until Mon10/20/24 at 1216, Routine, Pre-Delivery, nausea, vomiting ondansetron (Zofran) injection 4 mg 4 mg, Intravenous, Every 6 hours PRN, Starting on [place] 10/17/24 at 1911, Until Mon10/20/24 at 1216, Routine, Pre-Delivery, vomiting, nausea ondansetron ODT (Zofran-ODT) disintegrating tablet 4 mg 4 mg, Oral, Every 6 hours PRN, Starting on [facility] 10/17/24 at 1911, Until Mon10/20/24 at 1216, Routine, Pre-Delivery, nausea, vomiting pantoprazole (Protonix) EC tablet 40 mg 40 mg, Oral, Daily, First dose on [facility] 10/19/24 at 0200, Until Discontinued, Routine Given 10/19/2024 1:21 AM EDT 40 mg pantoprazole (Protonix) injection 40 mg 40 mg, Intravenous, Daily, First dose on [place] 10/20/24 at 0900, Until Discontinued, Routine potassium & [...] Mon10/18/24 at 1000, RoutineIndications:Hypokalemia New Bag 10/18/2024 2:49 PM EDT 10 mEq 100 mL/hr New Bag 10/18/2024 12:57 PM EDT 10 mEq 100 mL/hr New 10/18/2024 10:36 AM EDT 10 mEq 100 mL/hr potassium chloride IVPB 10 mEq 10 mEq, Intravenous, Every 1 hour, 6 doses, First dose (after last reorder) on 10/19/24 at 0900, Last dose on 10/19/24 at 1400, RoutineIndications:Hypokalemia New Bag 10/19/2024 3:08 PM EDT 10 mEq 100 mL/hr New Bag 10/19/2024 1:42 PM EDT 10 mEq 100 mL/hr New Bag 10/19/2024 12:39 PM EDT 10 mEq 100 mL/hr potassium chloride IVPB 10 mEq 10 mEq, Intravenous, Every 1 hour, 2 doses, First dose on 10/19/24 at 1715, Last dose on 10/19/24 at 1815, RoutineIndications:Hypokalemia New 10/19/2024 6:34 PM EDT 10 mEq 100 mL/hr New 10/19/2024 5:17 PM EDT 10 mEq 100 mL/hr potassium chloride IVPB 20 mEq 20 mEq, Intravenous, Every 1 hour, 3 doses, First dose on [place] 10/17/24 at 2030, Last dose on Mon10/17/24 at 2230, RoutineIndications:Hypokalemia 10/17/2024 11:18 PM EDT 20 mEq 50 mL/hr 10/17/2024 9:54 PM EDT 20 mEq 50 mL/hr potassium chloride IVPB 20 mEq 20 mEq, Intravenous, Once, 1 dose, On Mon10/18/24 at 0215, RoutineIndications:Hypokalemia New 10/18/2024 1:22 AM EDT 20 mEq 25 mL/hr prochlorperazine (Compazine) injection 5 mg 5 mg, Intravenous, Every 6 hours PRN, Starting on [place] 10/17/24 at 2335, Until 10/20/24 at 1216, Routine, nausea, vomiting Given 10/19/2024 12:19 PM EDT 5 mg Given 10/18/2024 1:53 PM EDT 5 mg Given 10/18/2024 12:17 AM EDT 5 mg promethazine (Phenergan) tablet 12.5 mg 12.5 mg, Oral, Every 6 hours PRN, Starting on [place] 10/17/24 at 2110, Until [place] 10/20/24 at 1216, Routine, nausea, vomiting Given 10/19/2024 1:21 AM EDT 12.5 mg sodium chloride 0.9 % flush 3 mL 3 mL, Intravenous, As needed, Starting on Mon10/17/24 at 1909, Until [place] 10/20/24 at 1216, Routine, Pre-Delivery, line care, 3 mL flush for PERIPHERAL IV CARE ONLY. sodium citrate-citric acid (Bicitra) 500-334 MG/5ML solution 30 mL 30 mL, Oral, Once in OR, 1 dose, Starting on [place] 10/17/24 at 2040, Until [place] 10/20/24 at 1216, Routine, Pre-Delivery sodium phosphates 30 mmol in sodium chloride 0.9 % 100 mL IVPB 30 mmol, Intravenous, Once, 1 dose, On Mon10/18/24 at 1915, Routine New Bag 10/18/2024 8:40 PM EDT 30 mmol 30 mL/hr sucralfate (Carafate) 1 GM/10ML suspension 1 g 1 g, Oral, 4 times daily before meals and nightly, First dose on Mon10/19/24 at 1200, Until Discontinued, Routine Given 10/19/2024 11:27 AM EDT 1 g terbutaline (Brethine) injection 0.25 mg 0.25 mg, Subcutaneous, Once as needed, 1 dose, Starting on [place] 10/17/24 at 2040, Until [place] 10/20/24 at 1216, Routine, Pre-Delivery, per MD [...] Discontinued, Routine 2338 (Given - Provider: Kelly Sanabria, BRIT - Comment: patient wanted to wait and take medication now) 0952 (Not Given - Provider: Sybil Lockett RN - Reason: Patient/family refused) ceFAZolin (Ancef) injection 2 g 2 g, Intravenous, Once in OR, 1 dose, Starting on Mon10/17/24 at 2040, Until 10/20/24 at 1216, Routine, Pre-Delivery ferrous sulfate EC tablet 324 mg 324 mg, Oral, Daily with breakfast, First dose on Mon10/18/24 at 1245, Until Discontinued, Routine 1238 (Given - Provider: Tex Harman, RN) 0802 (Given - Provider: Brandee Cross RN) 0748 (Not Given - Provider: Emiliana Daniel RN - Reason: Patient/family refused) HYDROmorphone (Dilaudid) injection 0.25 mg (COMPLETED) 0.25 mg, Intravenous, Once, 1 dose, On Mon10/18/24 at 1030, Routine 1002 (Given - Provider: Tex Harman, BRIT) hydrOXYzine (Vistaril) injection 25 mg (COMPLETED) 25 mg, Intramuscular, Once, 1 dose, On Mon10/20/24 at 0045, Routine 0336 (Given - Provider: Kelly Sanabria, BRIT - Comment: patient wanted to wait and take medication now) magnesium oxide (Mag-Ox) tablet 400 mg (CANCELED) 400 mg, Oral, 2 times daily, First dose on [place] 10/17/24 at 2100, Until Discontinued, Routine 0915 (Given - Provider: Tex Harman, RN) magnesium oxide (Mag-Ox) tablet 800 mg 800 mg, Oral, 2 times daily, First dose (after last modification) on Mon10/18/24 at 2100, Until Discontinued, Routine 2045 (Given - Provider: Tiffany Fabian RN) 0802 (Given - Provider: Brandee Cross, RN)2250 (Not Given - Provider: Kelly Sanabria, BRIT - Reason: Hold for condition: must add [...] 1238 (New Bag - Provider: Tex Harman, RN) magnesium sulfate IVPB 4 g (COMPLETED) 4 g, Intravenous, Once, 1 dose, On Mon10/18/24 at 1915, Routine 1856 (New Bag - Provider: Tex Harman, RN) multivitamin tablet 1 tablet 1 tablet, Oral, Daily, First dose on [place] 10/17/24 at 2000, Until Discontinued, Routine, Pre-Delivery 0915 (Given - Provider: Tex Harman, BRIT) 0802 (Given - Provider: Brandee Cross RN) 0814 (Not Given - Provider: Emiliana Daniel RN - Reason: Patient/family refused) mupirocin (Bactroban) 2 % ointment 1 Application Each Nostril, 2 times daily, 10 doses, First dose on Mon10/18/24 at 1030, Last dose on Mon10/22/24 at 2100, Routine 1002 (Given - Provider: Tex Harman RN)2044 (Given - Provider: Tiffany Fabian RN) 08 (Given - Provider: Brandee Cross RN)2102 (Given - Provider: Kelly Sanabria, RN) 0953 (Not Given - Provider: Sybil Lockett RN - Reason: Patient/family refused) pantoprazole (Protonix) EC tablet 40 mg (CANCELED) 40 mg, Oral, Daily, First dose on 10/19/24 at 0200, Until Discontinued, Routine 012 (Given - Provider: Rosio Dunne RN) pantoprazole (Protonix) injection 40 mg 40 mg, Intravenous, Daily, First dose on Mon10/20/24 at 0900, Until Discontinued, Routine 0953 (Not [...] with swallowing. MD aware, will continue to monitor.)151 (Not Given - Provider: Brandee Cross RN - Reason: Patient/family refused - Comment: Pt refused due to pain with swallowing. MD aware. Pt educated on risks and benefits. Will continue to monitor.)172 (Not Given - Provider: Devorah Marin RN - Reason: Hold for condition: must add comment - Comment: pt states unable to swallow meds)2108 (Given - Provider: Kelly Sanabria, BRIT) 0953 (Not Given - Provider: Sybil Lockett RN - Reason: Patient/family refused) potassium chloride CR (Klor-Con) ER tablet 40 mEq 40 mEq, Oral, 3 times daily, First dose on [place] 10/17/24 at 2100, Until Discontinued, Routine 0915 (Given - Provider: Tex Harman, BRIT)1128 (Canceled Entry - Provider: Tex Harman, BRIT)1625 (Given - Provider: Tex Harman, BRIT)2045 (Given - Provider: Tiffany Fabian RN) 0802 (Given - Provider: Brandee Cross, RN)1721 (Not Given - Provider: Devorah Marin RN - Reason: Hold for condition: must add comment - Comment: pt having difficulty swallowing)2249 (Not Given - Provider: Kelly Sanabria RN - Reason: Hold for condition: must add comment - Comment: pt stated she took medication that day shift nurse had left for her. oMrena Wren MD aware and states we will [...] Harman RN)1036 (New Bag - Provider: Tex Harman, BRIT)1257 (New Bag - Provider: Tex Harman, BRIT)1449 (New Bag - Provider: Tex Harman RN) potassium chloride IVPB 10 mEq (COMPLETED) 10 mEq, Intravenous, Every 1 hour, 6 doses, First dose (after last reorder) on 10/19/24 at 0900, Last dose on 10/19/24 at 1400, Routine 0904 (New Bag - Provider: Brandee Cross, BRIT)1010 (New Bag - Provider: Brandee Cross, RN)1128 (New Bag - Provider: Brandee Cross, RN)1239 (New Bag - Provider: Brandee Cross, RN)1342 (New Bag - Provider: Brandee Cross, RN)1508 (New Bag - Provider: Brandee Cross, BRIT) potassium chloride IVPB 10 mEq (COMPLETED) 10 mEq, Intravenous, Every 1 hour, 2 doses, First dose on Mon10/19/24 at 1715, Last dose on Mon10/19/24 at 1815, Routine 1717 (New Bag - Provider: Devorah Marin, BRIT)1834 (New Bag - Provider: Brandee Cross, BRIT) potassium chloride IVPB 20 mEq (COMPLETED) 20 mEq, Intravenous, Once, 1 dose, On Mon10/18/24 at 0215, Routine 0122 (New Bag - Provider: Orlin Jimenez, BRIT) sodium citrate-citric acid (Bicitra) 500-334 MG/5ML solution 30 mL 30 mL, Oral, Once in OR, 1 dose, Starting on [place] 10/17/24 at 2040, Until 10/20/24 at 1216, Routine, Pre-Delivery sodium phosphates 30 mmol in sodium chloride 0.9 % 100 mL IVPB (COMPLETED) 30 mmol, Intravenous, Once, 1 dose, On Mon10/18/24 at 1915, Routine 2040 (New Bag - Provider: Tiffany Fabian, BRIT) sucralfate (Carafate) 1 GM/10ML suspension 1 g 1 g, Oral, 4 times daily before meals and nightly, First dose on Mon10/19/24 at 1200, Until Discontinued, Routine 1127 (Given - Provider: Brandee Cross, BRIT)1700 (Canceled Entry - Provider: Automatic Discharge Provider [...] Discontinued, Routine 0954 (Not Given - Provider: Syibl Lockett RN - Reason: Patient/family refused) ursodiol (Actigall) capsule 300 mg 300 mg, Oral, 3 times daily, First dose on Mon10/18/24 at 0900, Until Discontinued, Routine 0915 (Given - Provider: Tex Harman, RN)1626 (Given - Provider: Tex Harman, BRIT)2045 (Given - Provider: Tiffany Fabian RN) 0802 (Given - Provider: Brandee Cross RN)1600 (Canceled Entry - Provider: Automatic Discharge Provider [...] (New Bag - Provider: Tex Harman RN) PRN Medication Order 10/18/2024 10/19/2024 10/20/2024 acetaminophen (Tylenol) tablet 650 mg 650 mg, Oral, Every 4 hours PRN, Starting on [place] 10/17/24 at 1911, Until Mon10/20/24 at 1216, Routine, Pre-Delivery, mild pain calcium carbonate (Tums) chewable tablet 1,000 mg 1,000 mg, Oral, 4 times daily PRN, Starting on [place] 10/17/24 at 1911, Until Mon10/20/24 at 1216, Routine, Pre-Delivery, indigestion, heartburn cyclobenzaprine (Flexeril) tablet 5 mg (CANCELED) 5 mg, Oral, 3 times daily PRN, Starting on Mon10/17/24 at 2338, Until Mon10/20/24 at 0744, Routine, muscle spasms 1002 (Given - Provider: Tex Harman, BRIT)1839 (Given - Provider: Tex Harman RN) 0121 (Given - Provider: Rosio Dunne RN)1219 (Given - Provider: Brandee Cross RN) famotidine [...] anxiety 0018 (Given - Provider: Orlin Jimenez RN)1838 (Given - Provider: Tex Harman RN) 0122 (Given - Provider: Rosio Dunne, BRIT)2338 (Given - Provider: Kelly Sanabria RN) magic [...] nausea, vomiting 0017 (Given - Provider: Orlin Jimenez, BRIT)1353 (Given - Provider: Tex Harman, BRIT) 1219 (Given - Provider: Brandee Cross, BRIT) promethazine (Phenergan) tablet 12.5 mg 12.5 mg, [...] 10/20/24 at 1216, Routine, Pre-Delivery, per MD orders [...] Starting on [place] 10/17/24 at 1911, Until [place] 10/20/24 at 1216, Routine, Pre-Delivery, indigestion, heartburn, or tablet po Group 2: ondansetron ODT (Zofran-ODT) disintegrating tablet 4 mgJump to med 4 mg, Oral, Every 6 hours PRN, Starting on [place] 10/17/24 at 1911, Until [place] 10/20/24 at 1216, Routine, Pre-Delivery, nausea, vomiting Or ondansetron (Zofran) injection 4 mgJump to med 4 mg, Intravenous, Every 6 hours PRN, Starting on [place] 10/17/24 at 1911, Until [place] 10/20/24 at 1216, Routine, Pre-Delivery, vomiting, nausea Or ondansetron (Zofran) 4 MG/5ML solution 4 mgJump to med 4 mg, Oral, Every 6 hours PRN, Starting on [facility] 10/17/24 at 1911, Until [place] 10/20/24 at 1216, Routine, Pre-Delivery, nausea, vomiting Group 3: Insert peripheral IV (CANCELED) Once, On [place] 10/17/24 at 1910, For 1 occurrence, Pre-Delivery And Saline lock IV (CANCELED) Once, On [place] 10/17/24 at 1910, For 1 occurrence, Pre-Delivery And sodium chloride 0.9 % flush 3 mLJump to med 3 mL, Intravenous, As needed, Starting on [facility] 10/17/24 at 1909, Until [place] 10/20/24 at 1216, Routine, Pre-Delivery, line care, [...] documented as of this encounter Care Teams Fireb[employer] Layer Relationship Specialty Start Date End Date Norma Friedman APRN [address] [place] [address] PCP - General 09/23/24 Lizz Trinh, RN [facility] Registered Nurse Cardiology 09/26/24 documented as of this encounter
--- OUTSIDE RECORDS SUMMARY | 2024-10-19 01:03 | XMS_ITS | Encounter Summary ---
Author Organization Healthcare Address [address] [place] [address] Care Team Providers Care Laborer Shipyard Name Role Phone jennyfer Kadedev Coy APRN Primary Care Provider +1- [phone] Lizz Trinh RN Unavailable Unavailable Reason for Visit * Auth/Cert (Routine) Specialty Diagnoses / Procedures Referred By Tarik t Referred To Contact Diagnoses Hypokalemia Electrolyte abnormality Hilton Montelongo MD [address] [address] Phone: tel: fax: [facility] [address] [place] [address] Phone: tel: fax: Referral ID Status Reason Start Date Expiration Date Visits Re quested Visits Authorized [id number] 1 1 Encounter Details Date Type Department Care Team (Late st Contact Info) Description 10/19/2024 1:03 AM EDT Anesthesia Event [facility] [address] [place] [address] Everett Farrar MD [address] [place] [address] Anesthesia Record Procedure Summary Procedure Name Responsible [...] more drinks on one occasion? 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 Nephrology, Bone & Mineral Metabolism [address] [facility], [address] [place] [address] documented as of this encounter Visit Diagnoses [...] as of this encounter Care Teams Laborer Shipyard Relationship Specialty Start Date End Date Norma Friedman APRN [address] [place], [place] [id number] PCP - General 09/23/24 Lizz Trinh, RN [facility] Registered Nurse Cardiology 09/26/24 documented as of this encounter
--- OUTSIDE RECORDS SUMMARY | 2024-10-24 08:00 | XMS_ITS | Encounter Summary ---
Author Organization Healthcare Address [address] [place] [address] Care Team Providers Care Commercial Lines Account Manager Name Role Phone Norma Friedman AUTOMATIC LINE SET UP MECHANIC Primary Care Provider [phone]- [phone] Lizz Trinh RN Unavailable Unavailable Reason for Visit * Reason Comments Edema * Consultation (Routine) - Closed Specialty Diagnoses / Procedures Referred By Tarik t Referred To Contact Diagnoses Palpitations Syncope and collapse Nneka Block MD [address] [place] [address] Phone: tel: fax: Referral ID Status Reason Start Date Expiration Date Visits Re quested Visits Authorized [id number] Closed 09/26/2024 03/28/2026 1 1 Encounter Details Date Type Department Care Team (Late st Contact Info) Description 10/24/2024 8:00 AM EDT Office Visit [facility] [place] [address], [address] [place] [address] Nneka Block MD [address] [place] [address] Palpitations (Primary Dx) Social History [...] more drinks on one occasion? Never 09/23/2024 [place] Depression Scale Answer Date Recorded [place] Depression Scale Total 0 09/23/2024 The thought [...] ? Natural and processed cheeses such as Tuvaluan, blue, mozzarella, and Yemeni Meat and protein substitutes Special instructions: ? Trim excess fat prior to cooking. ? Remove skin of chicken prior to cooking. ? Choose poultry and fish more often than red meat. Red meat includes beef, pork, simpson, and veal. When you do eat red [...] grams fat per ounce ? Eggs ? [place] lean cuts ? Natural peanut butter ? [...] ? Oat meal ? Whole wheat ? [place] ? Pumpernickel ? White ? Raisin ? Crackers prepared without butter, lard, coconut, or palm oil ? Dry cereals that contain allowed fats ? Rice and pasta prepared with allowed fats ? Egg noodles (limit to ?? cup per day) ? Croatian ? Citizen Of [place] ? Lao muffins ? Pancakes, waffles, biscuits, and cornbread made with allowed ingredients ? Flat bread ? Yemi crackers ? Matzoh crackers ? Whole grain or enriched cereals prepared with allowed oils ? Wheat germ Avoid: ? Egg or cheese bread ? Butter rolls ? Commercially prepared products: biscuits, muffins, sweet rolls, cornbread, pancakes and waffles, bermudian toast, croissants ? Noodles ? Cheese crackers ? Flavored crackers prepared with saturated fats ? Any cereal prepared with saturated fat ? [place] Citizen noodles ? Rice and pasta prepared with eggs, cream, or high fat cheese Fruits Choose: ? Any fresh, frozen, canned, or dried fruit or juice ? Avocado Vegetables Choose: ? Any fresh, frozen, or canned vegetables ? Potatoes prepared with allowed fat ? Olives (limit to 10 small or 5 large per day) Avoid: ? Buttered, creamed, or fried vegetables ? Alke-n-ytkgy, commercially made ? Vegetables prepared in a [...] sizes are listed below: ? Nuts: The [place] Heart Association recommends including 5 servings of [...] avocado oil, etc.: 1 tablespoon o The Tu[place] Heart Association recommends limiting oils to 3 [...] ingredients ? Sorbet ? Ice milk ? [place] ? Gum drops ? Jelly beans ? [...] saturated fats, cheese, and/or egg yolks ? Chestnutridge chips ? Potato chips and other snack [...] much from the food you eat. Use Cobaseer to Help Build Your Meals The Objective LogisticsTracker can help you plan and track your meals and activity. You can look up individual foods to see or compare their nutritional value. You can get guidelines for what and how much you should eat. You can compare your food choices. And you can assess personal physical activities and see ways you can improve. Go to www.iProfile Ltdmyplate.gov/Downtowntracker/. Eating Heart-Healthy Food: Using the DASH Plan [...] from the original note were not included. 40132 Aerobic Exercise for a Healthy Heart Exercise [...] provider. Last Reviewed Date: 2024 00:00:00 ?? [id number] The Soundtracker. All rights reserved. This information is not intended as a substitute for professional medical care. Always follow your healthcare professional's instructions. * Patient Instructions - Lexy Felix RN - 10/24/2024 8:00 AM EDT - For any questions or concerns, please contact Dr. Block's nurse, Lexy [phone]. documented in this encounter Plan of Treatment Upcoming Encounters Date Type Department Care Team ([facility] st Contact Info) Description 10/31/2024 Hospital Encounter [facility] Labor and Delivery [address] [place] [address] 11/14/2024 11:15 AM EDT Visit Medical Office Building Obstetrics and Gynecology [address], [address] [place] [address] Nneka Gipson MD [address] [place] [address] 12/25/2024 1:00 PM EST Office Visit [facility] Nephrology, Bone & Mineral Metabolism [address], [address] [place] [address] documented as of this encounter Procedures Procedure Name Priority Date/Time Associated Diagnosis Comments N-TERMINAL PROBNP, PLASMA Routine 10/24/2024 8:38 AM EDT Palpitations documented in this encounter Results * Troponin T, High Sensitivity, Cardiac Risk Assessment (10/24/2024 8:38 AM EDT) Troponin T, High Sensitivity, 0 Hour <6 <14 ng/L 10/24/2024 11:40 AM EDT [facility] Blood Venous blood specimen / Unknown Venipuncture / Unknown 10/24/2024 8:38 AM EDT 10/24/2024 8:40 AM EDT Nneka Block MD LAB BLOOD ORDERABLES Final Result Performing Organization Address [facility] Co de Phone Number HEALTHCARE [facility] [address] [place] [address] * N-Terminal Probnp, Plasma (10/24/2024 8:38 AM EDT) N-Terminal, PROBNP, Plasma 175 0 - 449 pg/mL 10/24/2024 11:40 AM EDT [facility] Blood Venous blood specimen / Unknown Venipuncture / Unknown 10/24/2024 8:38 AM EDT 10/24/2024 8:40 AM EDT Nneka Block MD LAB BLOOD ORDERABLES Final Result Performing Organization Address City/[facility] de Phone Number [facility]ARE [facility] [address] [place] [address] documented in this encounter Visit Diagnoses Diagnosis [...] as of this encounter Care Teams Commercial Lines Account Manager Relationship Specialty Start Date End Date Norma Friedman APRN [address] [place] [address] PCP - General 09/23/24 Lizz Trinh, RN [facility] Registered Nurse Cardiology 09/26/24 documented as of this encounter
--- OUTSIDE RECORDS SUMMARY | 2024-10-24 09:45 | XMS_ITS | Encounter Summary ---
Author Organization Healthcare Address [address] [place] [address] Care Team Providers Care Electrical Line Worker Name Role Phone Norma burger JOLENE Primary Care Provider +1- [phone] Lizz Trinh RN Unavailable Unavailable Reason for Visit * Reason Comments Routine Visit Encounter Details Date Type Department Care Team (Latest Contact Info) Description 10/24/2024 9:45 AM EDT Routine Medical Office Building Obstetrics and Gynecology [address], [address] [place] [address] Laury Cruz MD [address] [place] [address] Supervision of high risk , [...] drinks on one occasion? Never 09/23/2024 [place] Depression Scale Answer Date Recorded [place] Depression Scale Total 0 09/23/2024 The thought [...] at all 10/24/2024 7:52 AM EDT Nadine aLmb Patient Health Questionnaire-9 Score 0 10/07 7:52 [...] from the original note were not included. [address] First Trimester Assessment Important phone numbers [facility] Clinic: [phone] Genetic Counselor - Oliva [place]: [phone] Congratulations on your ! Learn more about [...] NIPT might not be covered. Your maximum rvi-ey-czxeyn cost would be $299 if NIPT is not covered. If you would like to check the cost of NIPT based onyour insurance plan, please call the lab. The lab we use is [facility]. Call its billing specialists at [phone]. The name of their NIPT is called ???[id number] Plus.?? Tests for parents (inherited conditions) Carrier [...] the cost of standard carrierscreening, the maximum ocs-fh-hxncqe cost would be $199. If you would like to check the cost based on your insurance plan, please call the lab. The lab we use is [facility]. Call their billing specialistsat [phone]. Expanded Carrier Screening (ECS): This is an optional test. It checks if you and your partner carrybetween 200-500 genetic conditions. The cost depends on the specific test you choose. If ECS interests you, please call Oliva Hoffman at [phone] for more information. The tests listed above [...] the risk of stillbirth or having a nxv-bivbi-afrxlj baby. If you smoke, quit now. Alcohol [...] money problems,housing, access to food, and child day care teacher. If you can???t get to medical appointments, [...] water with a slice of lemon or cow creek. (These can also help ease an upset [...] water with a slice of lemon or cow creek. (These can also help ease an upset [...] Which medicines are safe? No prescription or zlrq-jgy-ejivtxe medicine is safe for everyone all of [...] bring the load nearer. Get a good medicaid business analyst. Test the weight of the load. Tighten [...] Can I paint my nails? Yes. Nail tunisian is not thought to be dangerous during . Just be careful about breathing the fumes. Keep windows open or use a fan. However, long-term exposure to the solvents used to removenail tunisian may not be safe. If you work [...] baby: provides contact that babies love. Frequent ixuz-cc-dzsc time with Mom is calming andcomforting. Breastmilk [...] rate of diabetes, osteoporosis, and depression. A hearing consultant is a healthcare provider specially trained to help moms. Your nurse, combat systems engineer, improvement manager, or family practice doctor can also help [...] with a nurse. [facility] (Triage) [facility] [address] [place] [address] [place] [facility] Obstetrics & Gynecology [facility] Medical Office Building [address] [place] [address] [facility] [address] [place] [address] Family Practice [address], Third Floor [address] [place] [address] [facility] [address] [place] [address] [facility] Obstetrics & Gynecology [place] [address] [place] [address] [facility] Obstetrics & Gynecology [place] [address] [place] [address] : Your Second Trimester Changes [...] secondhand smoke. Don???t breathe fumes from nail tunisian, hair spray, cleansers, or other chemicals. How daily issues affect your health Many things in your daily life impact your health. This can include transportation, money problems,housing, access to food, and child day care teacher. If you can???t get to medical appointments, [...] you have concerns. Keeping a healthy mouth [place] twice daily with fluoride toothpaste. Floss at [...] expect during a blood glucose screening: The [place] College of Obstetricians and Gynecologists (ACOG) advises [...] contact your health care provider or visit www.[employer]. [facility] Women's Health & Ob[facility]etrics: Birthing Center Triage: Operations Systems Specialist Clinic: Family Practice: [facility] Obstetrics & Gynecology [place]: [facility] Obstetrics & Gynecology [place]: [phone] FAQs How often should I nurse? Feed [...] How many months should I nurse? The [place] College of Obstetricians and Gynecologists (ACOG) and the [place] Academy of Pediatrics (AAP) both recommend that parents start as soon as possible after , ideally within the first hour. Research has shown that time qzne-vs-arcn after delivery helps to encourage this. Both [...] important to ask for help from a hearing consultant or your healthcare provider. It could be a sign that your baby is having trouble latching correctly and may not be transferring milk from your breast well. Most of the time, this issue is common and can be easilymanaged with a little help. But should not cause ongoing pain. So it is important to find a trained hearing consultant who can help evaluate the latch. [...] supplements. How long should I breastfeed? The [place] Academy of Pediatrics recommends that you breast [...] money problems,housing, access to food, and child day care teacher. If you can???t get to medical appointments, [...] discharge Phone Numbers [facility] (Triage): [place] [facility]: [facility]: Operations Systems Specialist Clinic: [facility]: [facility] Obstetrics & Gynecology [place]: [facility] Obstetrics & Gynecology [place]: What Is [...] or irregular heart rate Beginning to Breastfeed: Lnfu-gv-Vpnv What is jndy-nu-tcqn? After , your nurse will clean and dry your baby. Your baby will then be placed on your chest ekle-ph-msto right away. Your baby???s shoulders should be [...] the first time. Your baby will stay hwrc-mb-ixhs with you for as long as you like after . If you get too sleepy, let your nurse know. Only you or your partner can do esld-od-hpor with your baby these first few hours. Visitors may come in, but you must not pass your baby around during this time. This could cause your baby to get cold and then sick. Lcxi-lc-icdv is a great way to remind your [...] also lowers your risk of depression. Being tkfe-ge-esuq with your baby can help reduce your [...] for feeding. Placing your baby in the zgkc-sm-amfa position on your chest. This can help [...] How many months should I nurse? The [place] College of Obstetricians and Gynecologists (ACOG) and the [place] Academy of Pediatrics (AAP) both recommend that parents start as soon as possible after , ideally within the first hour. Research has shown that time gncm-vj-heqo after delivery helps to encourage this. Both [...] important to ask for help from a hearing consultant or your healthcare provider. It could be a sign that your baby is having trouble latching correctly and may not be transferring milk from your breast well. Most of the time, this issue is common and can be easilymanaged with a little help. But should not cause ongoing pain. So it is important to find a trained hearing consultant who can help evaluate the latch. [...] age 2 or older Beginning to Breastfeed: Mxpr-ld-Ohnc What is lbsb-kd-akwy? After , your nurse will clean and dry your baby. Your baby will then be placed on your chest bmsa-zp-hnqv right away. Your baby???s shoulders should be [...] the first time. Your baby will stay yxrc-bw-ylxw with you for as long as you like after . If you get too sleepy, let your nurse know. Only you or your partner can do kzem-zg-ohll with your baby these first few hours. Visitors may come in, but you must not pass your baby around during this time. This could cause your baby to get cold and then sick. Cqxs-vr-hswo is a great way to remind your [...] also lowers your risk of depression. Being ixdu-hz-kopa with your baby can help reduce your [...] for feeding. Placing your baby in the dhzm-wz-vjsu position on your chest. This can help [...] to latch on correctly. [facility] can help with any breast feeding [...] with your provider. And talk with a hearing consultant who has worked with trans and [...] is whyit???s important to talk with a hearing consultant. They can review your health history, answer your questions, and advise you on a plan to help you create a milk supply. Creating a milk supply: inducing Inducing is done by stimulating and emptying the breasts. It will take some work and someeffort to build up a milk supply. Your hearing consultant will work closely with you. You will likely need to try a combination of: Breast stimulation. Breast stimulation triggers the hormones that affect milk production. This may be done by using a breast pump or stimulating your nipples by hand. Your hearing consultant will advise you on how often [...] Induced takes planning, commitment, and support. Your hearing consultant can talk with you about your options. It is helpful to start the process a few months before the baby arrives. What are some issues that may affect my milk supply? Your personal history impacts your ability to chestfeed. Each person???s history as a trans or gender nonbinary person is different. So it???s important to work with a hearing consultant who understands your personal situation and [...] is available from human milk echavarria. Your hearing consultant can helpyou learn more about finding [...] The time you spend snuggling together with xyzc-mu-jcfs contact is special and can: Help you mirza with your baby Help your baby go to sleep Help ease your baby???s pain Promote your baby???s sucking reflex Holds Fvfh-uj-Zapz : Latch On Zluc-tj-Jtrd Expressing Breastmilk Work, school, or even a [...] Expressing by Hand or by Pump Your hearing consultant or other healthcare provider can help [...] on guidelines from the CDC and the [place] Academy of Pediatrics (AAP). Type of storage [...] of your pump is clean. Follow the assistant district attorney???s instructions on which parts to clean. Wash pump parts after each use. You may use a tubing mill operator to clean your pump parts. Place the setting on hot water and heated drying cycle or sanitize cycle. Place the parts on the upper rack. Be sure to wash your hands before taking them out of the tubing mill operator. Let them air dry if not already dry. Or you may boil the parts if you do not have a tubing mill operator. Place the parts in a clean avila [...] expect: We will weigh your baby. A improvement manager will check your baby. A hearing consultant will be here to answer questions, watch feeding, and provide resources. Location: The clinic is inside the General Pediatrics Clinic. It is on the second floor [facility]: [facility] [place] [address]. Hours: Monday-Monday, 12:45 p.m.-3:20 p.m. For an appointment: Call [phone]. Community Resources Consulting [facility] [address] [place] [address] Care with Nan www.lactationcarewithApps & Zertsth.Senscient Helplines [facility] Network 24 hour Helpline [facility] Services Online Resources ZUGGIdroplets.Senscient med.tensed.[facility]/newborns/professional-education/.html [facility] [address] [place] [address] Support Groups Ariadna Bustos (MAKI) [facility] meets on the last Monday of each month from 10-11AM. Meetings are held at the [facility]. [address] [place] [address] ([place]) Facebook group: [place], [place] Baby Wynn Mommas and Milkies Group Meetings are monthly. Call or go online to register. www.[employer] Breast Pump Coverage Below are medical supply options to buy double electric breast pumps. Please check with your insurance carrier, as some coverage has changed. You might be able to order a pump 30-60 days before your due date. [employer]: ([facility]ly [facility] Oxygen and Coppola's) [facility] covers: Medela Pump N Style Starter Kit 100%, Spectra II 100% help desk support at: Krish Vargas [address] [place], [place] [employer] Website: www.[employer] or Email: [email or web address]@[employer] [facility] covers: Ameda Finesse, Medela Pump N Style Starter Kit, Spectra S II, Lansinoh Smart Pump. Ships within 30 days of due date [employer]: www.momsgetmore.Senscient Provides Hygeia pumps only (double electric closed system). Text PUMP to for eligibility. [facility] Approved Mommy Express Website: www.mommyexpress.com or [facility] covers: 100% for AmJosiane See 2 Upgrades available: $25 fee for Medela Max Ozzie, $55 fee for Spectra S II Delivers to your home Pumps for Mom ([facility]) Office: Email: [email or web address] Also carries support garments for and [employer] Medical Supplies Website: https://www.FanattacpJustinmind.Senscient Office: * Progress Notes - Kaitlyn Richter MD - 10/24/2024 9:45 AM EDT [facility] Follow Up Subjective Whitney Presley is seen [...] Brandan with primary OB Dr Marin in [facility] O+/RI/HCV-/HIV- Needs HBV and syphilis G/C negative [...] Had tachycardia and arrhythmia during admission to [facility] on 09/19 HR to 170s-180s with standing, [...] and Gynecology [facility] Cosigned by Laury Cruz MD at 10/24/2024 [...] Encounter [facility] H Labor and Delivery [address] [place] [address] 11/14/2024 11:15 AM EDT Visit Medical Office Building Obstetrics and Gynecology [address], [address] [place] [phone] Nneka Gipson MD [address] [place] [address] 12/25/2024 1:00 PM EST Office Visit [facility] Nephrology, Bone & Mineral Metabolism [address], [address] [place] [address] Scheduled Orders Name Type Priority [...] Ketones, Urine Negative Negative mg/dL POCT Specific [place], Urine 1.015 POCT Blood, Urine Negative Negative POCT pH, Urine 8.5(A) 5.0 to 8.0 POCT Protein, Urine Trace(A) Negative mg/dL POCT Urobilinogen, Urine 0.2 0.2, 1 E.U./dL POCT Nitrite, Urine Negative Negative POCT Leukocyte Esterase, Urine Negative Negative Test Strip Lot Number [id number] Test Strip Lot Expiration 08/2025 Urine Urine [...] documented as of this encounter Care Teams Electrical Line Worker Relationship Specialty Start Date End Date Norma Friedman APRN [address] [place] [address] PCP - General 09/23/24 Lizz Trinh, RN [facility] Registered Nurse Cardiology 09/26/24 documented as of this encounter
--- OUTSIDE RECORDS SUMMARY | 2024-10-28 07:08 | XMS_ITS | Clinical Summary ---
Author Organization 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 [facility] - Edwardo Ojeda MD Interventional Pain Protocol: NS Appt 03/29/22 Letter Sent Maxime report completed (EVERY 3 MONTHS) ( 03/23/22) Pharmacy: [facility] [address] [place] [address] [address] [facility] south - [phone] No known active problems Social History Tobacco [...] patient's age to complete this topic Insurance [employer]. [facility] [id number]
--- OUTSIDE RECORDS SUMMARY | 2024-10-28 07:09 | XMS_ITS | Encounter Summary ---
Author Organization Healthcare Address [address] [place] [address] Care Team Providers Care Hha Name Role Phone Unavailable Primary Care Provider Unavailabl e Encounter Details Date Type Department Care Team (Late Contact Info) Description 09/17/2024 Telephone [facility] Nephrology, Bone & Mineral Metabolism [address] [facility], [address] [place] [address] Sherley Gold, DIRECTOR ENERGY GS - 7 MAIN MEDICAL-SURGICAL Social History [...] Encounter [facility] H Labor and Delivery [address] [place] [address] 11/14/2024 11:15 AM EDT Visit Medical Office Building Obstetrics and Gynecology [address] [facility], [address] [place] [address] Nneka Gipson MD [address] [place] [address] 12/25/2024 1:00 PM EST Office Visit [facility] Nephrology, Bone & Mineral Metabolism [address] [facility], [address] [place] [address] documented as of this encounter Visit Diagnoses Not on filedocumented in this encounter
--- OUTSIDE RECORDS SUMMARY | 2024-10-28 07:09 | XMS_ITS | Encounter Summary ---
[facility] Address [address] [place] [id number] Care Team Providers Care Gas Station Service Attendant Name Role Phone Ivyashlyn Valentinoseven JOLENE Primary Care Provider + [phone] Encounter Details Date Type Department Care Team (Late st Contact Info) Description 06/26/2024 Results Follow-Up [facility] OBGYN [address] [address] Koby Roberts MD [address] [place] [address] Social History Tobacco Use Types Packs/Day Years Used Date Smoking Tobacco: Never Smokeless Tobacco: Never Alcohol Use Standard Drinks/Week Comments Never 0 (1 standard drink = 0.6 oz pur e alcohol) [facility] Utilities Answer Date Recorded In the past 12 months has [employer], gas, oil, or water [employer] threatened to shut off services in your [...] and heating? Not hard at all 05/28/2024 [facility] [place] of Occupat ional Health - Occupational Stress [...] Visit [facility]OLOG[facility] [address] [facility] [address] Robbin Escalante MD [address] [address] documented as of this encounter Visit Diagnoses Not on filedocumented in this encounter Additional Health Concerns Assessment Noted Time PHQ-2 Depression Total Score: 2 05/28/19 25 4:39 PM EDT documented as of this encounter Care Teams Gas Station Service Attendant Relationship Specialty Start Date End Date Norma Friedman APRN [address] [place] [place] [address] PCP - General Family Medicine 05/14/24 documented as of this encounter
--- OUTSIDE RECORDS SUMMARY | 2024-10-28 07:09 | XMS_ITS | Encounter Summary ---
[facility] Organization [facility] Address [address] [place] [id number] Care Team Providers Care Radiation Technician Name Role Phone IvyNorma goldberg JOLENE Primary Care Provider + [phone] Reason for Visit * Reason Onset Date Comments Advice Only 10/10/2024 Encounter Details Date Type Department Care Team (Late st Contact Info) Description 10/10/2024 Telephone [facility] MATERNAL MEDICINE [address] [facility] [place] [address] [place] [address] Lyudmila Germain, inoculator Only Social History Tobacco Use Types Packs/Day Years Used Date Smoking Tobacco: Never Smokeless Tobacco: Never Alcohol Use Standard Drinks/Week Comments Never 0 (1 standard drink = 0.6 oz pur e alcohol) [facility] Utilities Answer Date Recorded In the past 12 months has [employer], gas, oil, or water [employer] threatened to shut off services in [...] hard at all 05/28/2024 [facility] [place] of Occupat ional Health - Occupational Stress [...] Late entry: Patient called desiring appointment with [facility] due to hypokalemia and hypomagnesemia requiring infusions every other day. Per dental treatment coordinator, referral was received here last week but our physicians determined patient needs to continue receiving [facility] care at as she sees otherspeciality physicians (cardiology, nephrology) there as well. Discussed this with patient who states Dr. Weller () refused to see her again and she has no options. Patient reported her physicians at [facility] told her if she has another cardiac event she will . Upon reviewing notes from specialists at , cardiology note states patient will wear color television console monitor and return in 4 weeks to discuss r esults and delivery plans and monitoring. Patient states cardiology refuses to see her until she ispostpartum - although it appears she has an appointment on 10/24. Per note from nephrology at , limited options for treatment other than continued repletion. Informed patient our office will reach out to [facility] at to determine if there is an issue in scheduling her there and we will call her back. After our office talked to [facility], a nurse there states there is no issue with her scheduling and she is more than welcome to come back for appointments. Called patient back, informed her she is welcome to schedule a follow-up at [facility] and gave her their office number. documented in this encounter Plan of Treatment Upcoming Encounters Date Type Department Care Team (Late st Contact Info) Description 01/20/2025 3:30 PM EST Office Visit [facility] GASTROENTEROLOGY [address] [facility] [address] [place] [address] Robbin Escalante MD [address] [facility] [address] [place] [address] documented as of this encounter Visit Diagnoses Not on filedocumented in this encounter Additional Health Concerns Assessment Noted Time PHQ-2 Depression Total Score: 2 05/28/19 4:39 PM EDT documented as of this encounter Care Teams Radiation Technician Relationship Specialty Start Date End Date Norma Friedman APRN [address] [place] [place] [address] PCP - General Family Medicine 05/14/24 documented as of this encounter
--- OUTSIDE RECORDS SUMMARY | 2024-10-28 07:09 | XMS_ITS | Encounter Summary ---
Author Organization Healthcare Address [address] [place] [address] Care Team Providers Care Hardness Tester Name Role Phone Norma Friedman ROOM SERVICE RUNNER Primary Care Provider +1- [phone] Lizz Trinh RN Unavailable Unavailable Encounter Details [...] more drinks on one occasion? Never 09/23/2024 [place] Depression Scale Answer Date Recorded [place] Depression Scale Total 0 09/23/2024 The thought [...] H Labor and Delivery [address] [place] [address] 11/14/2024 11:15 AM EDT Visit Medical Office Building Obstetrics and Gynecology [address] [facility], [address] [place] [address] Nneka Giposn MD [address] [place] [address] 12/25/2024 1:00 PM EST Office Visit [facility] Nephrology, Bone & Mineral Metabolism [address] [facility], [address] [place] [address] documented as of this encounter [...] documented as of this encounter Care Teams Hardness Tester Relationship Specialty Start Date End Date Norma Friedman APRN [address] [place] [address] PCP - General 09/23/24 Lizz Trinh, RN [facility] Registered Nurse Cardiology 09/26/24 documented as of this encounter
--- OUTSIDE RECORDS SUMMARY | 2024-10-28 07:09 | XMS_ITS | Encounter Summary ---
Author Organization Healthcare Address [address] [place] [address] Care Team Providers Care Promotion Officer Name Role Phone Norma Friedman TAX ASSOCIATE Primary Care Provider +1- [phone] Lizz Trinh RN Unavailable Unavailable Encounter Details [...] more drinks on one occasion? Never 09/23/2024 [place] Depression Scale Answer Date Recorded [place] Depression Scale Total 0 09/23/2024 The thought [...] H Labor and Delivery [address] [place] [address] 11/14/2024 11:15 AM EDT Visit Medical Office Building Obstetrics and Gynecology [address] [facility], [address] [place] [address] Nneka Gipson MD [address] [place] [address] 12/25/2024 1:00 PM EST Office Visit [facility] Nephrology, Bone & Mineral Metabolism [address] [facility], [address] [place] [address] documented as of this encounter [...] documented as of this encounter Care Teams Promotion Officer Relationship Specialty Start Date End Date Norma Friedman APRN [address] [place] [address] PCP - General 09/23/24 Lizz Trinh, RN [facility] Registered Nurse Cardiology 09/26/24 documented as of this encounter
--- OUTSIDE RECORDS SUMMARY | 2024-10-28 07:09 | XMS_ITS | Encounter Summary ---
Author Organization Healthcare Address [address] [place] [address] Care Team Providers Care Cost Consultant Name Role Phone Norma Friedman JOLENE Primary Care Provider +1- [phone] Lizz Trinh RN Unavailable Unavailable Encounter Details Date Type Department Care Team ([facility] Contact Info) Description 10/17/2024 Telephone [facility] Obstetrics and Gynecology [address] [facility], [address] [place] [address] Tracy Segovia, RN [facility] 1st [facility] Social History Tobacco Use Types [...] more drinks on one occasion? Never 09/23/2024 [place] Depression Scale Answer Date Recorded [place] Depression Scale Total 0 09/23/2024 The [...] from Brandee at Dr. Ramon's office in [place], she was calling because Whitney is notscheduled [...] ED for evaluation. I contacted Brenda OB speech correction consultant with report on expectant patient. Message sent to Dr. Wheeler with patient update. documented in this encounter Plan of Treatment Upcoming Encounters Date Type Department Care Team (Late st Contact Info) Description 10/31/2024 Hospital Encounter [facility] Labor and Delivery [address] [place] [address] 11/14/2024 11:15 AM EDT Visit Medical Office Building Obstetrics and Gynecology [address] [facility], [address] [place] [address] Nneka Gipson MD [address] [place] [address] 12/25/2024 1:00 PM EST Office [facility] Neph[facility], Bone & Mineral Metabolism [address] [facility], [address] [place] [address] documented as of this encounter Visit Diagnoses Not on filedocumented in this encounter Additional Health Concerns Assessment Noted Time A fall risk assessment has been complete d for the patient 09/26/2024 8:15 AM EDT A Body Mass Index follow-up plan has been documented for the patient 10/20/2024 9:52 AM EDT documented as of this encounter Care Teams Cost Consultant Relationship Specialty Start Date End Date Norma Friedman APRN [address] [place] [address] PCP - General 09/23/24 Lizz Trinh, RN [facility] Registered Nurse Cardiology 09/26/24 documented as of this encounter
--- OUTSIDE RECORDS SUMMARY | 2024-10-28 07:09 | XMS_ITS | Encounter Summary ---
[facility] Organization [facility] Address [address] [place] [address] Care Team Providers Care Baseball Scout Name Role Phone IvyKade goldbergjoseseven JOLENE Primary Care Provider + [phone] Encounter Details Date Type Department Care Team (Late st Contact Info) Description 09/26/2024 Documentation [facility] LABOR DELIVERY [address] [place] [address] Christy Zabala, RN Social History Tobacco Use Types Packs/Day Years Used Date Smoking Tobacco: Never Smokeless Tobacco: Never Alcohol Use Standard Drinks/Week Comments Never 0 (1 standard drink = 0.6 oz pur e alcohol) [facility] Utilities Answer Date Recorded In [...] at all 05/28/2024 [facility] [place] of Occupat ional Health - Occupational Stress [...] Review of chart reveals patient [facility] to [facility] to continue care. Will plan to review chart around EDC for delivery information. documented in this encounter Plan of Treatment Upcoming Encounters Date Type Department Care Team (Late st Contact Info) Description 01/20/2025 3:30 PM EST Office Visit [facility] GASTROENTEROLOGY [address] [phone] Robbin Escalante MD [address] [address] documented as of this encounter Visit Diagnoses Not on filedocumented in this encounter Additional Health Concerns Assessment Noted Time PHQ-2 Depression Total Score: 2 05/28/19 25 4:39 PM EDT documented as of this encounter Care Teams Baseball Scout Relationship Specialty Start Date End Date Norma Friedman APRN [address] [place] [place] [address] PCP - General Family Medicine 05/14/24 documented as of this encounter
--- OUTSIDE RECORDS SUMMARY | 2024-10-28 07:09 | XMS_ITS | Encounter Summary ---
Author Organization Healthcare Address [address] [place] [address] Care Team Providers Care Export Sales Manager Name Role Phone Norma Friedman JOLENE Primary Care Provider +1- [phone] Lizz Trinh RN Unavailable Unavailable Encounter Details [...] more drinks on one occasion? Never 09/23/2024 [place] Depression Scale Answer Date Recorded [place] Depression Scale Total 0 09/23/2024 The thought [...] Encounter [facility] Labor and Delivery [address] [place] [address] 11/14/2024 11:15 AM EDT Visit Medical Office Building Obstetrics and Gynecology [address] [facility], [address] [place] [address] Nneka Gipson MD [address] [place] [address] 12/25/2024 1:00 PM EST Office Visit [facility] Nephrology, Bone & Mineral Metabolism [address] [facility], [address] [place] [address] documented as of this encounter [...] documented as of this encounter Care Teams Export Sales Manager Relationship Specialty Start Date End Date Norma Friedman APRN [address] [place] [address] PCP - General 09/23/24 Lizz Trinh, RN [facility] Registered Nurse Cardiology 09/26/24 documented as of this encounter
--- OUTSIDE RECORDS SUMMARY | 2024-10-28 07:09 | XMS_ITS | Encounter Summary ---
Author Organization [facility] Address [address] [place] [id number] Care Team Providers Care Owner Manager Name Role Phone Unavailable Primary Care Provider Unavailabl e Encounter Details Date Type Department Care Team (Late st Contact Info) Description 09/17/2024 Telephone [facility] Obstetrics and Gynecology [address] [facility], [address] [place] [address] Josefina Shay RN [facility] [address] [place] [address] Social History Tobacco Use Types Packs/Day Years [...] recently had a full Nephrology work-up at [facility] that was negative and was [...] Encounter [facility] H Labor and Delivery [address] [place] [address] 11/14/2024 11:15 AM EDT Visit Medical Office Building Obstetrics and Gynecology [address] [facility], [address] [place] [address] Nneka Gipson MD [address] [place] [address] 12/25/2024 1:00 PM EST Office Visit [facility] Nephrology, Bone & Mineral Metabolism [address] [facility], [address] [place] [address] documented as of this encounter Visit Diagnoses Not on filedocumented in this encounter
--- OUTSIDE RECORDS SUMMARY | 2024-10-28 07:09 | XMS_ITS | Encounter Summary ---
Author Organization Healthcare Address [address] [place] [address] Care Team Providers Care Parking Assistant Name Role Phone Norma Friedman JOLENE Primary Care Provider +1- [phone] Lizz Trinh RN Unavailable Unavailable Encounter Details Date Type Department Care Team (Late Contact Info) Description 07/22/2024 [facility] [address] [place] [address] Sandy Cardenas MD [address] [facility] [address] [place] [id number] Social History Tobacco Use Types Packs/Day Years [...] Encounter [facility] H Labor and Delivery [address] [place] [address] 11/14/2024 11:15 AM EDT Visit Medical Office Building Obstetrics and Gynecology [address] [facility], [address] [place] [address] Nneka Gipson MD [address] [place] [address] 12/25/2024 1:00 PM EST Office [facility] Nephrology, Bone & Mineral Metabolism [address] [facility], [address] [place] [address] documented as of this encounter Visit Diagnoses Not on filedocumented in this encounter Additional Health Concerns Infection Onset Date Last Indicated Resolved Time COVID-19 Rule-Out 10/17/2024 10/17/2024 10/19/2024 1:56 AM EDT Respiratory Rule-Out 10/17/2024 10/17/2024 025 11:23 PM EDT documented as of this encounter Care Teams Parking Assistant Relationship Specialty Start Date End Date Norma Friedman APRN [address] [facility] [place] [address] PCP - General 09/23/24 Lizz Trinh, RN [facility] Registered Nurse Cardiology 09/26/24 documented as of this encounter
--- OUTSIDE RECORDS SUMMARY | 2024-10-28 07:09 | XMS_ITS | Encounter Summary ---
Author Organization Healthcare Address [address] [place] [address] Care Team Providers Care Winding Operator Name Role Phone Norma Friedman JOLENE Primary Care Provider +1- [phone] Lizz Trinh RN Unavailable Unavailable Reason for Visit * Reason Onset Date Comments [facility] Care coordiantion 10/17/2024 Encounter Details Date Type Department Care Team ([facility] st Contact Info) Description 10/17/2024 Telephone Medical Office Building Obstetrics and Gynecology [address] [facility], [address] [place] [address] Tracy Segovia, RN [facility] 1st FLR [facility] Care coordiantion Social History Tobacco Use Types [...] more drinks on one occasion? Never 09/23/2024 [place] Depression Scale Answer Date Recorded [place] Depression Scale Total 0 09/23/2024 The thought [...] reviewed that Whitney was seen today by [facility],she had a non reactive NST, and BPP 6/8 ( breathing not seen). Discussed that Whitney declined presenting to [facility] for extended monitoring today or returning to our clinic tomorrow (10/18/24) for a repeat NST. Whitney is agreeable for do an NST with her local OB provider as she is already scheduled for an infusion with their office. Qi agreeable to schedule patient for NST on10/18/24. Offered to send notes from today's appointment, Qi provided me with her office's fax# ([phone]). No additional questions at this time. documented in this encounter Plan of Treatment Upcoming Encounters Date Type Department Care Team (Late st Contact Info) Description 10/31/2024 Hospital Encounter [facility] Labor and Delivery [address] [place] [address] 11/14/2024 11:15 AM EDT Visit Medical Office Building Obstetrics and Gynecology [address] [facility], [address] [place] [address] Nneka Gipson MD [address] [place] [address] 12/25/2024 1:00 PM EST Office Visit [facility] Nephrology, Bone & Mineral Metabolism [address] [facility], [address] [place] [address] documented as of this encounter Visit Diagnoses Not on filedocumented in this encounter Additional Health Concerns Assessment Noted Time A fall risk assessment has been complete d for the patient 09/26/2024 8:15 AM EDT A Body Mass Index follow-up plan has been documented for the patient 10/20/2024 9:52 AM EDT documented as of this encounter Care Teams Winding Operator Relationship Specialty Start Date End Date Norma Friedman APRN [address] [place] [address] PCP - General 09/23/24 Lizz Trinh, RN [facility] Registered Nurse Cardiology 09/26/24 documented as of this encounter
--- OUTSIDE RECORDS SUMMARY | 2024-10-28 07:09 | XMS_ITS | Encounter Summary ---
Author Organization Healthcare Address [address] [place] [address] Care Team Providers Care Director Of Sales And Marketing Name Role Phone Norma Friedman JOLENE Primary Care Provider +1- [phone] Lizz Trinh RN Unavailable Unavailable Encounter Details Date Type Department Care Team (Late st Contact Info) Description 10/16/2024 Results Follow-Up [facility] [place] [address] [facility] [place] [address] Nneka Block MD [address] [place] [address] Social History Tobacco Use Types [...] more drinks on one occasion? Never 09/23/2024 [place] Depression Scale Answer Date Recorded [place] Depression Scale Total 0 09/23/2024 The thought [...] Harman RN documented as of this encounter Plan of Treatment Upcoming Encounters Date Type Department Care Team ([facility] st Contact Info) Description 10/31/2024 Hospital Encounter [facility] Labor and Delivery [address] [place] [address] 11/14/2024 11:15 AM EDT Visit Medical Office Building Obstetrics and Gynecology [address] [facility], [address] [place] [address] Nneka Gipson MD [address] [place] [address] 12/25/2024 1:00 PM EST Office Visit [facility] Nephrology, Bone & Mineral Metabolism [address] [facility], [address] [place] [address] documented as of this encounter [...] of this encounter Care Teams Director Of Sales And Marketing Relationship Specialty Start Date End Date Norma Friedman APRN [address] [place] [address] PCP - General 09/23/24 Lizz Trinh, RN [facility] Registered Nurse Cardiology 09/26/24 documented as of this encounter
--- OUTSIDE RECORDS SUMMARY | 2024-10-28 07:10 | XMS_ITS | Encounter Summary ---
[facility] Address [address] [address] Care Team Providers Care Cigarette Making Machine Catcher Name Role Phone Elder Norma FERNÁNDEZ Primary Care Provider + [phone] Encounter Details Date Type Department Care Team (Latest Contact Info) Description 08/29/2024 Travel Social History Tobacco Use Types Packs/Day Years Used Date Smoking Tobacco: Never Smokeless Tobacco: Never Alcohol Use Standard Drinks/Week Comments Never 0 (1 standard drink = 0.6 oz pur e alcohol) [facility] Utilities Answer Date Recorded In the past 12 months has [employer] electric, gas, oil, or water company threatened [...] and heating? Not hard at all 05/28/2024 [facility] [place] [facility] Occupat ional Health - Occupational Stress [...] Visit [facility] GASTROENTEROLOGY [address] [facility] [address] [place] [address] Robbin Escalante MD [address] [facility] [address] [place] [address] documented as of this encounter Visit Diagnoses Not on filedocumented in this encounter Additional Health Concerns Assessment Noted Time PHQ-2 Depression Total Score: 2 05/28/19 25 4:39 PM EDT documented as of this encounter Care Teams Cigarette Making Machine Catcher Relationship Specialty Start Date End Date Norma Friedman APRN [address] [place] [address] [place] [address] PCP - General Family Medicine 05/14/24 documented as of this encounter
--- OUTSIDE RECORDS SUMMARY | 2024-10-28 07:10 | XMS_ITS | Encounter Summary ---
[facility] Address [address] [place] [id number] Care Team Providers Care Manager Practice Name Role Phone IvyKade goldbergjoseseven JOLENE Primary Care Provider + [phone] Encounter Details Date Type Department Care Team (Late st Contact Info) Description 09/03/2024 Results Follow-Up [facility] OBGYN [address] [place] [address] Staci Jain MD [address] [facility] [address] [place] [address] Social History Tobacco Use Types Packs/Day Years Used Date Smoking Tobacco: Never Smokeless Tobacco: Never Alcohol Use Standard Drinks/Week Comments Never 0 (1 standard drink = 0.6 oz pur e alcohol) [facility] Utilities Answer Date Recorded In the past 12 months has [employer], gas, oil, or water [employer] threatened to shut off services in your [...] and heating? Not hard at all 05/28/2024 [facility] Occupat ional Health - Occupational Stress [...] Office Visit [facility] GASTROENTEROLOGY [address] [address] Robbin Escalante MD [address] [address] documented as of this encounter Visit Diagnoses Not on filedocumented in this encounter Additional Health Concerns Assessment Noted Time PHQ-2 Depression Total Score: 2 05/28/19 4:39 PM EDT documented as of this encounter Care Teams Manager Practice Relationship Specialty Start Date End Date Norma Friedman APRN [address] [place] [address] [place] [address] PCP - General Family Medicine 05/14/24 documented as of this encounter
--- OUTSIDE RECORDS SUMMARY | 2024-10-28 07:10 | XMS_ITS | Clinical Summary ---
Author Organization [employer] ([place], [place], [place], [place]) Address [address] [place] [address] Care Team Providers Care Paper Stripper Name Role Phone Unavailable Primary Care Provider [...]
--- OUTSIDE RECORDS SUMMARY | 2024-10-28 07:10 | XMS_ITS | Encounter Summary ---
Author Organization Healthcare Address [address] [place] [address] Care Team Providers Care Oil Drilling Engineer Name Role Phone Unavailable Primary Care Provider Unavailabl e Reason for Referral * Consultation (Routine) - Closed Specialty Diagnoses / Procedures Referred By Contac t Referred To Contact Nephrology Diagnoses Hypokalemia Liborio Weller MD [address] [facility] [address] [place] [address] Phone: tel: fax: [facility] Nephrology, Bone & Mineral Metabolism [address] [facility], [address] [place] [address] Phone: tel: fax: Referral ID Status Reason Start Date Expiration Date V isits Requested Visits Authorized [id number] Closed Specialty Services Required 09/14/2024 03/16/2026 1 1 Scheduling Instructions Severe hypokalemia in the setting of Encounter Details Date Type Department Care Team (Late st Contact Info) Description 09/14/2024 Telephone [facility] Obstetrics & Gynecology [address] [place] [address] Susi Wren MD [address] [place] [address] Social History Tobacco Use Types [...] had an outpatient workup with Nephrology at [facility] that was negative, she was not [...] Encounter [facility] Labor and Delivery [address] [place] [address] 11/14/2024 11:15 AM EDT Visit Medical Office Building Obstetrics and Gynecology [address] [facility], [address] [place] [address] Nneka Gipson MD [address] [place] [address] 12/25/2024 1:00 PM EST Office Visit [facility] Nephrology, Bone & Mineral Metabolism [address] [facility], [address] [place] [address] Scheduled Referrals Name Type Priority Associated Diagnoses Order Schedule Ambulatory referral to Nephrology Clinic Outpatient Referral Routine Hypokalemia 1 Occurrences starting 09/14/2024 until 03/18/2026 documented as of this encounter Visit Diagnoses Diagnosis Hypokalemia- Primary Hypopotassemia documented in this encounter
--- OUTSIDE RECORDS SUMMARY | 2024-10-28 07:10 | XMS_ITS | Encounter Summary ---
Author Organization Healthcare Address [address] [place] [address] Care Team Providers Care Firebrick And Refractory Tile Repairer Name Role Phone Norma Friedman APRN Primary Care Provider +1- [phone] Encounter Details Date Type Department Care Team [...] more drinks on one occasion? Never 09/23/2024 [place] Depression Scale Answer Date Recorded [place] Depression Scale Total 0 09/23/2024 The thought [...] [facility] Labor and Delivery [address] [place] [address] 11/14/2024 11:15 AM EDT Visit Medical Office Building Obstetrics and Gynecology [address] [facility], [address] [place] [address] Nneka Gipson MD [address] [place] [address] 12/25/2024 1:00 PM EST Office Visit [facility] Nephrology, Bone & Mineral Metabolism [address] [facility], [address] [place] [address] documented as of this encounter Visit Diagnoses Not on filedocumented in this encounter Additional Health Concerns Assessment Noted Time A fall risk assessment has been complete d for the patient 09/25/2024 3:05 PM EDT A Body Mass Index follow-up plan has been documented for the patient 10/05/2024 8:54 PM EDT documented as of this encounter Care Teams Firebrick And Refractory Tile Repairer Relationship Specialty Start Date End Date Norma Friedman APRN [address] [place] [address] PCP - General 09/23/24 documented as of this encounter
--- OUTSIDE RECORDS SUMMARY | 2024-10-28 07:10 | XMS_ITS | Referral Summary ---
Author Organization [employer] ([place], [place], [place], [place]) Address [address] [place] [address] Care Team Providers Care Print Producer Name Role Phone Unavailable Primary Care Provider [...]
--- OUTSIDE RECORDS SUMMARY | 2024-10-28 07:10 | XMS_ITS | Encounter Summary ---
Author Organization [employer] ([place], [place], [place], [place]) Address [address] [place] [address] Care Team Providers Care Mammography Technologist Name Role Phone Unavailable Primary Care Provider Unavailabl e Encounter Details Date Type Department Care Team (Late st Contact Info) Description 07/17/2019 Transcribed Document [facility] Family Medicine [address] [place] [address] ProviderEleno MD [address] [place], [place] [address] Social History Tobacco Use Types Packs/Day Years [...] On: 07/17/2019 19:17 EDT by KARLENE MCKINLEY embroidery patternmaker Process Patient Disposition : AMA/Elope/LWBS KARLENE MCKINLEY RN - 07/17/2019 23:04 EDT LWBS/Elopement/AMA Patient Left Prior To Medical Screening : Unseen Patient Elopement : Yes Provider Notified : No KARLENE MCKINLEY RN - 07/17/2019 23:04 EDT Electronically signed by Quintin Forte Conversion Professional Development Manager Cerner at 05/27/2022 5:18 PM CDT documented in this encounter Plan of Treatment Not on file documented as of this encounter Visit Diagnoses Not on filedocumented in this encounter
--- OUTSIDE RECORDS SUMMARY | 2024-10-28 07:10 | XMS_ITS | Encounter Summary ---
[facility] Address [address] [place] [id number] Care Team Providers Care Musical Instrument Maker Name Role Phone Ivyashlyn Norma FERNÁNDEZ Primary Care Provider + [phone] Encounter Details Date Type Department Care Team (Late st Contact Info) Description 09/02/2024 Telephone [facility] OBGYN [address] [address] Staci Jain MD [address] [place] [id number] Social History Tobacco Use Types Packs/Day Years Used Date Smoking Tobacco: Never Smokeless Tobacco: Never Alcohol Use Standard Drinks/Week Comments Never 0 (1 standard drink = 0.6 oz pur e alcohol) [facility] Utilities Answer Date Recorded In the past 12 months has [employer], [employer] oil, or water [employer] threatened to shut off services in your [...] PM EDT She just got d/c'd from [facility] 2 hours ago and they gave her a total 10 MLE of K+ and 3 units of Mag and 2 liters of LR. She has decided to transfer care to [facility] as it iscloser to her like 15 min away. She wants you (Dr. Jain) to know this has nothing to you but rather the nurses and consultant luxury and auto. vice president jaguar brand (ex ) doctor did not relay the labs to you in a faster fashion. She said you can call her if you want and she is not angry. Dr. Jain was notified. * Telephone Encounter - Frederick Gruber RN - 09/02/2024 3:10 PM EDT [employer] message sent to the pt regarding outpt infusion apt tomorrow at [facility]. documented in this encounter Plan of Treatment Upcoming Encounters Date Type Department Care Team (Late st Contact Info) Description 01/20/2025 3:30 PM EST Office Visit [facility] GASTROENTEROLOGY [address] [place] [address] [place] [address] Robbin Escalante MD [address] [facility] [address] [place] [address] documented as of this encounter Visit Diagnoses Not on filedocumented in this encounter Additional Health Concerns Assessment Noted Time PHQ-2 Depression Total Score: 2 05/28/19 25 4:39 PM EDT documented as of this encounter Care Teams Musical Instrument Maker Relationship Specialty Start Date End Date Norma Friedman APRN [address] [place] [address] [place] [address] PCP - General Family Medicine 05/14/24 documented as of this encounter
--- OUTSIDE RECORDS SUMMARY | 2024-10-28 07:10 | XMS_ITS ---
Author Organization [facility] Address [address] [place] [address] Care Team Providers Care Employment Programs Analyst Name Role Phone Norma Friedman APRN Primary Care Provider [phone] Motherhood Connection Status:Engaged (Active) Start date:05/23/2024 Enrollment date:05/23/2024 Case Team Name Relationship Phone Bindu Castellon RN Nurse Navigator Christy Zabala RN(Responsible Staff) Nurse Navig ator Continued Care and Services Coordination
--- OUTSIDE RECORDS SUMMARY | 2024-10-28 07:10 | XMS_ITS | Encounter Summary ---
Author Organization Healthcare Address [address] [place] [address] Care Team Providers Care Vehicle Monitor Technician Name Role Phone Norma Friedman APRN Primary Care Provider +1- [phone] Encounter Details Date Type Department Care Team [...] drinks on one occasion? Never 09/23/2024 [place] Depression Scale Answer Date Recorded [place] Depression Scale Total 0 09/23/2024 The thought [...] Encounter [facility] Labor and Delivery [address] [place] [address] 11/14/2024 11:15 AM EDT Visit Medical Office Building Obstetrics and Gynecology [address] [facility], [address] [place] [address] Nneka Gipson MD [address] [place] [address] 12/25/2024 1:00 PM EST Office Visit [facility] Nephrology, Bone & Mineral Metabolism [address] [facility], [address] [place] [address] documented as of this encounter Visit Diagnoses Not on filedocumented in this encounter Additional Health Concerns Assessment Noted Time A Body Mass Index follow-up plan has been documented for the patient 09/23/2024 8:28 PM EDT documented as of this encounter Care Teams Vehicle Monitor Technician Relationship Specialty Start Date End Date Norma Friedman APRN [address] [place] [address] PCP - General 09/23/24 documented as of this encounter
--- OUTSIDE RECORDS SUMMARY | 2024-10-28 07:10 | XMS_ITS | Encounter Summary ---
Author Organization Healthcare Address [address] [place] [address] Care Team Providers Care Corporate Services Manager Name Role Phone Norma Friedman CASHIER COURTESY BOOTH Primary Care Provider +1- [phone] Lizz Trinh RN Unavailable Unavailable Encounter Details [...] drinks on one occasion? Never 09/23/2024 [place] Depression Scale Answer Date Recorded [place] Depression Scale Total 0 09/23/2024 The thought [...] H Labor and Delivery [address] [place] [address] 11/14/2024 11:15 AM EDT Visit Medical Office Building Obstetrics and Gynecology [address] [facility], [address] [place] [address] Nneka Gipson MD [address] [place] [address] 12/25/2024 1:00 PM EST Office Visit [facility] Nephrology, Bone & Mineral Metabolism [address] [facility], [address] [place] [address] documented as of this encounter Visit Diagnoses Not on filedocumented in this encounter Additional Health Concerns Assessment Noted Time A fall risk assessment has been complete d for the patient 09/26/2024 8:15 AM EDT A Body Mass Index follow-up plan has been documented for the patient 09/27/2024 10:22 AM EDT documented as of this encounter Care Teams Corporate Services Manager Relationship Specialty Start Date End Date Norma Friedman APRN [address] [place] [address] PCP - General 09/23/24 Lizz Trinh, RN [facility] Registered Nurse Cardiology 09/26/24 documented as of this encounter
--- OUTSIDE RECORDS SUMMARY | 2024-10-28 07:10 | XMS_ITS | Encounter Summary ---
Author Organization [facility] Address [address] [place] [address] Care Team Providers Care Sledger Name Role Phone Elder Kadedev Coy APRN Primary Care Provider +1- [phone] Lizz Trinh RN Unavailable Unavailable Reason for Referral * Consultation (Routine) - Authorized Specialty Diagnoses / Procedures Referred By Tarik pedersen Referred To Contact Nephrology Diagnoses History of proteinuria syndrome care, subsequent , second trimester Staci Jain MD [address] [address] Phone: tel: fax: [facility] Nephrology, Bone & Mineral Metabolism [address] [facility], [address] [place] [address] Phone: tel: fax: Referral ID Status Reason Start Date Expiration Date Visits Requested Visits Authorized [id number] Authorized Specialty Services Required 07/22/2024 01/21/2026 1 1 Encounter Details Date Type Department Care Team (Late st Contact Info) Description 07/22/2024 [facility] [address] [place] [address] Staci Jain MD [address] [place] [address] History of proteinuria syndrome (Primary Dx); care, [...] Encounter [facility] Labor and Delivery [address] [place] [address] 11/14/2024 11:15 AM EDT Visit Medical Office Building Obstetrics and Gynecology [address] [facility], [address] [place] [address] Nneka Gipson MD [address] [place] [address] 12/25/2024 1:00 PM EST Office Visit [facility] Nephrology, Bone & Mineral Metabolism [address] [facility], [address] [place] [address] Scheduled Referrals Name Type Priority [...] documented as of this encounter Care Teams Sledger Relationship Specialty Start Date End Date Norma Friedman APRN [address] [place] [address] PCP - General 09/23/24 Lizz Trinh, RN [facility] Registered Nurse Cardiology 09/26/24 documented as of this encounter
--- OUTSIDE RECORDS SUMMARY | 2024-10-28 07:10 | XMS_ITS | Clinical Summary ---
Author Organization [facility] Address [address] [place] [address] Care Team Providers Care Assault Boat Coxswain Name Role Phone Norma Friedman APRN Primary Care Provider + [phone] Allergies Active Allergy Reactions Criticality Noted Date [...] Type Department Care Team Description 5 Telephone [facility] MATERNAL MEDICINE [address] [facility] [address] [place] [address] Lyudmila Germain, uncrater Only 5 Documentation [facility] LABOR DELIVERY [address] [place] [address] Christy Zabala RN 5 Results Follow-Up [facility] OBGYN [address] [place] [address] Rob Wharton MD 5 Telephone [facility] [facility] [address] [place] [address] Rob Wharton MD 5 10:00 AM EDT Routine [facility] [place] [address] Rob Wharton MD GA: 26w4d 5 Travel 5 Telephone [facility] OBGYN 17[address] [facility] [address] [place] [address] Rob Wharton MD 5 Telephone [facility] [place] [address] Rob Wharton MD 5 1:44 PM EDT Anesthesia Event [facility] ENDO SUITES [address] [place] [address] Akash Anguiano MD Lanham, John, CRNA 5 1:33 PM EDT - 5 2:05 PM EDT Surgery [facility] ENDO SUITES [address] [place] [address] Blu Alvarado MD ESOPHAGOGASTRODUODENOSCOPY [30457 (CPT )] 5 1:59 PM EDT - 5 4:28 PM EDT Hospital Encounter [facility] ANTEPARTUM [address] [place] [address] Rob Wharton MD Brunner, Mark I, MD Dysphagia, unspecified type (Primary Dx) Discharge Disposition: Home or Self Care 5 10:15 AM EDT Routine [facility] OBGYN [address] [place] [address] Jacey Mathews, LACE FINISHER GA: 25w1d 5 Telephone [facility] OBGYN [address] [place] [address] Jacey Mathews, LACE FINISHER 5 Travel from Last 3 Months Family [...] Recorded In the past 12 months has [employer], gas, oil, or water [employer] threatened to shut off services in your home? No 05/28/2024 AUDIT-C Answer Date Recorded Q1: How often do you have a drink containing alcohol? Never 05/28/2024 Q2: How many drinks containi ng alcohol do you have on a typical day when you are drinking? Patient does not drink 5 Q3: How often do you have si x or more drinks on one occasion? Never 05/28/2024 Overall Financial Resource Strain (CARDIA) Answe r Date Recorded How hard is it for you to pa y for the very basics like food, housing, medical care, and heating? Not hard at all 05/28/2024 Citizen Of [place] [employer] Occupat ional Health - Occupational Stress [...] Office Visit [facility] GASTROENTEROLOGY [address] [address] Robbin Escalante MD [address] [address] Health Maintenance Due Date Last [...] NONSTRESS TEST Routine 08/19/2024 4:17 PM EDT [facility] Routine 08/19/2024 3:25 PM EDT [...] - 08/30/2024 6:09 AM EDT Performed at: [address] [place] [id number] Behavioral Therapy Coordinator: Kevin Harman MD, Phone: [phone] Patient Fasting: N Rob Wharton MD LAB BLOOD ORDERABLES Final Result [facility] (AMBULATORY) [address] [place] [address], [place] [phone] [facility] [address] [place] [address], [place] [phone] * (ABNORMAL) Comprehensive Metabolic Panel (08/29/2024 11:05 AM EDT) Only the most recent of2 resultswithin the time period is included. [facility] Glucose 72 65 - 99 mg/dL [facility] [...] - 08/30/2024 6:09 AM EDT Performed at: [address] [place] [id number] Behavioral Therapy Coordinator: Kevin Harman MD, Phone: [phone] Patient Fasting: N Rob Wharton MD LAB BLOOD ORDERABLES Final Result [facility] (AMBULATORY) [address] [place] [address], [place] [phone] [facility] [address] [place] [address], [place] [phone] * (ABNORMAL) POC Urinalysis Dipstick (08/29/2024 10:13 AM EDT) Glucose, UA Negative Negative mg/dL [facility]ORATORY Protein, POC Trace(A) Negative mg/dL [facility] Urine 08/29/2024 10:1 3 AM EDT Rob Wharton MD POINT OF CARE TEST OR DERABLES Final Result [facility] LABORATORY
[address] [place] [address], * BH AN ETT AIRWAY (08/20/2024 2:02 [...] EDT) Case Report Surgical Pathology Report Case: [id number] Authorizing Provider: Blu Alvarado MD Collected: 08/20/2024 01:55 PM Ordering Location: [facility] Received: 08/20/2024 02:14 PM ENDO SUITES Pathologist: Khalida Rhoades DO Specimen: Gastric, Antrum, antrum bx for path 08/22/2024 9:18 AM EDT [facility] LABORATORY Clinical Information Dysphagia, unspecified type 08/22/2024 9:18 AM EDT [facility] LABORATORY Final Diagnosis Stomach, antrum, biopsy: 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 pylori is negative (no organisms are identified) Negative for intestinal metaplasia, dysplasia, or malignancy 08/22/2024 9:18 AM EDT [facility] LABORATORY at 0918 EDT Gross Description 1. Gastric, Antrum. Received in formalin labeled antrum biopsy is a 0.4 x 0.2 x 0.2 cm pink-see soft tissue fragment submitted entirely in a single cassette. HDM 08/22/2024 9:18 AM EDT [facility] LABORATORY Microscopic Description The slides are reviewed and demonstrate histopathologic features supporting the above rendered diagnosis. 08/22/2024 9:18 AM EDT [facility] LABORATORY Tissue Pyloric antrum structure / Unknown 08/20/2024 1:55 PM EDT 08/20/2024 2:14 PM EDT Blu Alvarado MD PATHOLOGY/CYTOLOGY ORDERABLES Final Result [facility] LABORATORY
[address] [place] [address], * Upper GI Endoscopy (08/20/2024 1:09 PM EDT) Blu Alvarado MD INTERFACE NEEDS Final Result * (ABNORMAL) Basic Metabolic Panel (08/20/2024 5:25 AM EDT) Glucose 84 65 - 99 mg/dL 08/20/2024 6:13 AM EDT [facility] LABORATORY BUN 2.3(L) 6.0 - 20.0 mg/dL 08/20/2024 6:13 AM EDT [facility] LABORATORY Creatinine 0.51(L) 0.57 - 1.00 mg/dL 08/20/2024 6:13 AM EDT [facility] LABORATORY Sodium 139 136 - 145 mmol/L 08/20/2024 6:13 AM EDT [facility] LABORATORY Potassium 3.5 3.5 - 5.2 mmol/L 08/20/2024 6:13 AM EDT [facility] LABORATORY Chloride 109(H) 98 - 107 mmol/L 08/20/2024 6:13 AM EDT [facility] LABORATORY CO2 23.5 22.0 - 29.0 mmol/L 08/20/2024 6:13 AM EDT [facility] LABORATORY Calcium 7.8(L) 8.6 - 10.5 mg/dL 08/20/2024 6:13 AM EDT [facility] LABORATORY BUN/Creatinine Ratio 4.5(L) 7.0 - 25.0 08/20/2024 6:13 AM EDT [facility] LABORATORY Anion Gap 6.5 5.0 - 15.0 mmol/L 08/20/2024 6:13 AM EDT [facility] LABORATORY eGFR 126.6 >60.0 mL/min/1.7 3 08/20/2024 6:13 AM EDT [facility] LABORATORY Blood Venipuncture / Unknown 08/20/2024 5:25 AM EDT 08/20/2024 5:46 AM EDT Narrative [facility] LABORATORY - 08/20/2024 6:13 AM EDT GFR [...] City/[facility]/ZIP Co de Phone Number [facility] LABORATORY
[address] [place] [address], [place] [phone] * (ABNORMAL) Potassium (08/19/2024 8:53 PM EDT) Potassium 2.7(L) 3.5 - 5.2 mmol/L 08/19/2024 9:20 PM EDT [facility] LABORATORY Blood Venipuncture / Unknown 08/19/2024 8:53 PM EDT 08/19/2024 9:04 PM EDT Kt Fan DO LAB BLOOD ORDERABLES Final Result [facility] LABORATORY
[address] [place] [address], [place] [phone] * ABO RH Specimen Verification (08/19/2024 4:34 PM EDT) ABO Type O 08/19/2024 7:39 PM EDT [facility] BB LABORATORY RH type Positive 08/19/2024 7:39 PM EDT [facility] BB LABORATORY Blood Venipuncture / Unknown 08/19/2024 4:34 PM EDT 08/19/2024 4:53 PM EDT Rob Wharton MD BLOOD BANK TEST ORDER FRANCO Final Result [facility] BB LABORATORY
[address] [place] [address], * [facility] (08/19/2024 3:25 PM EDT) Anatomical Region Laterality Modality Ultrasound 08/19/2024 3:09 PM EDT Narrative 08/19/2024 4:54 PM EDT PAT NAME: CAROLE GIRARD MED REC#: [id number] DA: [id number] PAT GEND: F PAT TYPE: E EXAM TRAVIS: [id number] REF PHYS ROB WHARTON Comparison Studies The [...] EFW (oz) 9 oz EFW by: Hadlock ([id number]-[id number]-FL) Extended Cav. septi pel. tr 4.7 mm Manager Management 3.8 mm CM 7.5 mm 84% Nicolaides [...] Heart / Thorax 3-vessel view: Appears normal 4-qgluvy-jhzjndb view: Appears normal Stomach: Appears normal Kidneys: [...] in 4wks for growth. Coding ======= Description: 82047-44 Follow Up Leaflet Distributor: RT Annetta Hartmann , [facility] Physician: Jo Chappell MD Electronically signed by: Jo Chappell MD at: 16:54 Procedure Note Jo Chappell MD - 08/19/2024 PAT NAME: CAROLE GIRARD MED REC#: [id number] DA: [id number] PAT GEND: F PAT TYPE: E EXAM TRAVIS: [id number] REF PHYS ROB WHARTON Comparison Studies The findings of this study are compared to the prior ultrasound studydated 07/22/24 Patient Status Inpatient Indication ======== History of c/s x1. History of . Vaginal bleeding. Maternal Assessment Npfeje611 cm Height (ft)5 ft Height (in)4 in Uuydpz46 kg Weight (lb)158 lb BMI27.31 kg/m Method ======= Transabdominal ultrasound examination. View: Limited by patient bodyhabitus ========= Love . Number of fetuses: 1 Dating ====== Method of dating:based on stated DUSTY GA by prior [id number] w + 1 d DUSTY by prior assessment:12/01/2024 Ultrasound examination on:08/19/2024 GA by U/S based upon:AC, BPD, Femur, HC GA by U/S24 w + 2 d DUSTY by U/S:12/07/2024 Previous dating:based on stated DUSTY, selected on 07/22/2024 Agreed DUSTY of previous datin12/01/2024 Assigned:based on stated DUSTY, selected on 08/19/2024 Assigned GA25 w + 1 d Assigned DUSTY:12/01/2024 [id number] d Biometry Standard BPD57.6 mm 23w 4d 5% Hadlock OFD81.6 mm 26w 4d 88% Jamal HC225.7 mm 24w 4d 13% Hadlock Cerebellum tr28.9 mm 25w 2d 62% Hill AC194.9 mm 24w 1d 15% Hadlock Femur44.9 mm 24w 6d 27% Hadlock Nluesxq94.3 mm 25w 3d 50% Jamal HC / AC1.16 SPG449 g 24w 2d 16% Hadlock EFW (lb)1 lb EFW (oz)9 oz EFW by:Hadlock (HBG-AQ-FD-FL) Extended Cav. septi pel. tr4.7 mm Vp3.8 mm CM7.5 mm 84% Nicolaides Head / Face / Neck Cephalic index0.71 <1% Nicolaides Extremities / Bony Struc FL / BPD0.78 FL / HC0.20 FL / AC0.23 Other Structures [id number] bpm General Evaluation Cardiac activity present. FHR [...] normal Heart / Thorax 3-vessel view:Appears normal 2-ltbecq-ylcasow view:Appears normal Stomach:Appears normal Kidneys:Appears normal Bladder:Appears normal Gender:female Wants to know gender:yes Maternal Structures Uterus / Cervix Cervix:Visualized Approach:Transabdominal Cervical hkeelz74.9 mm Doppler Arterial Umbilical A PI1.01 32% [...] office in 4wks for growth. Coding ======= Description:10616-27 Follow Up Leaflet Distributor: RT Annetta Hartmann , [facility] Physician: Jo Chappell MD Electronically signed by: Jo Chappell MD at: 16:54 Kt Fan DO IMG US ORDERABLES Final Res ult * Urinalysis, Microscopic Only - Urine, Clean Catch (08/19/2024 3:02 PM EDT) RBC, UA 0-2 None Seen, 0-2 /HPF 08/19/2024 3:33 PM EDT [facility] LABORATORY WBC, UA 0-2 None Seen, 0-2 /HPF 08/19/2024 3:33 PM EDT [facility] LABORATORY Bacteria, UA None Seen None Seen /HPF 08/19/2024 3:33 PM EDT [facility] LABORATORY Squamous Epithelial Cells, UA 0-2 None Seen, 0-2 /HPF 08/19/2024 3:33 PM EDT [facility] LABORATORY Hyaline Casts, UA None Seen None Seen /LPF 08/19/2024 3:33 PM EDT [facility] LABORATORY Methodology Automated Microscopy 08/19/2024 3:33 PM EDT [facility] LABORATORY Urine Urine specimen obtained by clean catch procedure / Unknown Collection / Unknown 08/19/2024 3:02 PM EDT 08/19/2024 3:13 PM EDT Kt Fan DO URINE ORDERABLES Final Resu lt [facility] LABORATORY
[address] [place] [address], * (ABNORMAL) Urinalysis With Microscopic If Indicated (No Culture) - Urine, Clean Catch (08/19/2024 3:02 PM EDT) Color, UA Yellow Yellow, Straw 08/19/2024 3:33 PM EDT [facility] LABORATORY Appearance, UA Clear Clear 08/19/2024 3:33 PM EDT [facility] LABORATORY pH, UA >=9.0(H) 5.0 - 8.0 08/19/2024 3:33 PM EDT [facility] LABORATORY Specific [place], UA 1.018 1.005 - 1.030 08/19/2024 3:33 PM EDT [facility] LABORATORY Glucose, UA Negative Negative 08/19/2024 3:33 PM EDT [facility] LABORATORY Ketones, UA 15 mg/dL (1+)(A) Negative 08/19/2024 3:33 PM EDT [facility] LABORATORY Bilirubin, UA Negative Negative 08/19/2024 3:33 PM EDT [facility] LABORATORY Blood, UA Negative Negative 08/19/2024 3:33 PM EDT [facility] LABORATORY Protein, UA 30 mg/dL (1+)(A) Negative 08/19/2024 3:33 PM EDT [facility] LABORATORY Leuk Esterase, UA Negative Negative 08/19/2024 3:33 PM EDT [facility] LABORATORY Nitrite, UA Negative Negative 08/19/2024 3:33 PM EDT [facility] LABORATORY Urobilinogen, UA 1.0 E.U./dL 0.2 - 1.0 E.U./dL 08/19/2024 3:33 PM EDT [facility] LABORATORY Urine Urine specimen obtained by clean catch procedure / Unknown Collection / Unknown 08/19/2024 3:02 PM EDT 08/19/2024 3:13 PM EDT Kt Fan DO URINE ORDERABLES Final Resu lt [facility] LABORATORY
[address] [place] [address], * (ABNORMAL) CBC Auto Differential (08/19/2024 3:02 PM EDT) WBC 9.19 3.40 - 10.80 10*3/mm3 08/19/2024 3:23 PM EDT [facility] LABORATORY RBC 3.58(L) 3.77 - 5.28 10*6/mm3 08/19/2024 3:23 PM EDT [facility] LABORATORY Hemoglobin 10.5(L) 12.0 - 15.9 g/dL 08/19/2024 3:23 PM EDT [facility] LABORATORY Hematocrit 31.4(L) 34.0 - 46.6 % 08/19/2024 3:23 PM EDT [facility] LABORATORY MCV 87.7 79.0 - 97.0 fL 08/19/2024 3:23 PM EDT [facility] LABORATORY MCH 29.3 26.6 - 33.0 pg 08/19/2024 3:23 PM EDT [facility] LABORATORY MCHC 33.4 31.5 - 35.7 g/dL 08/19/2024 3:23 PM EDT [facility] LABORATORY RDW 13.4 12.3 - 15.4 % 08/19/2024 3:23 PM EDT [facility] LABORATORY RDW-SD 42.4 37.0 - 54.0 fl 08/19/2024 3:[facility] MPV 12.0 6.0 - 12.0 fL 08/19/2024 3:23 PM EDT [facility] LABORATORY Platelets 241 140 - 450 10*3/mm3 08/19/2024 3:23 PM EDT [facility] LABORATORY Neutrophil % 66.8 42.7 - 76.0 % 08/19/2024 3:23 PM EDT [facility] LABORATORY Lymphocyte % 24.4 19.6 - 45.3 % 08/19/2024 3:23 PM EDT [facility] LABORATORY Monocyte % 7.6 5.0 - 12.0 % 08/19/2024 3:23 PM EDT [facility] LABORATORY Eosinophil % 0.7 0.3 - 6.2 % 08/19/2024 3:23 PM EDT [facility] LABORATORY Basophil % 0.2 0.0 - 1.5 % 08/19/2024 3:23 PM EDT [facility] LABORATORY Immature Grans % 0.3 0.0 - 0.5 % 08/19/2024 3:23 PM EDT [facility] LABORATORY Neutrophils, Absolute 6.14 1.70 - 7.00 10*3/mm3 08/19/2024 3:23 PM EDT [facility] LABORATORY Lymphocytes, Absolute 2.24 0.70 - 3.10 10*3/mm3 08/19/2024 3:23 PM EDT [facility] LABORATORY Monocytes, Absolute 0.70 0.10 - 0.90 10*3/mm3 08/19/2024 3:23 PM EDT [facility] LABORATORY Eosinophils, Absolute 0.06 0.00 - 0.40 10*3/mm3 08/19/2024 3:23 PM EDT [facility] LABORATORY Basophils, Absolute 0.02 0.00 - 0.20 10*3/mm3 08/19/2024 3:23 PM EDT [facility] LABORATORY Immature Grans, Absolute 0.03 0.00 - 0.05 10*3/mm3 08/19/2024 3:23 PM EDT [facility] LABORATORY nRBC 0.0 0.0 - 0.2 /100 WBC 08/19/2024 3:23 PM EDT [facility] LABORATORY Blood Line / Unknown 08/19/2024 3: 02 PM EDT 08/19/2024 3:10 PM EDT Kt Fan DO LAB BLOOD ORDERABLES Final Result [facility] LABORATORY
[address] [place] [address], * Protein / Creatinine Ratio, Urine - Urine, Clean Catch (08/19/2024 3:02 PM EDT) Protein/Creati nine Ratio, Urine 126.1 0.0 - 200.0 mg/G Crea 08/20/2024 12:47 AM EDT [facility] LABORATORY Creatinine, Urine 148.3 mg/dL 08/20/2024 12:47 AM EDT [facility] LABOR[facility] Total Protein, Urine 18.7 mg/dL 08/20/2024 12:47 AM EDT [facility] LABORATORY Urine Urine specimen obtained by clean catch procedure / Unknown Collection / Unknown 08/19/2024 3:02 PM EDT 08/19/2024 4:26 PM EDT Kt Fan DO URINE ORDERABLES Final Resu lt [facility] LABORATORY
[address] [place] [address], [place] [phone] * Type & Screen (08/19/2024 3:02 PM EDT) ABO Type O 08/19/2024 3:51 PM EDT [facility] BB LABORATORY RH type Positive 08/19/2024 3:51 PM EDT [facility] LABORATORY Antibody Screen Negative 08/19/2024 3:51 PM EDT [facility] T&S Expiration Date 08/22/2024 11:59:59 PM 08/19/2024 3:51 PM EDT [facility] Blood Line / Unknown 08/19/2024 3: 02 PM EDT 08/19/2024 3:15 PM EDT Kt Fan DO BLOOD BANK TEST ORDERABLES Edited Result - Final Performing Organization Address [facility]/ZIP Co de Phone Number [facility] LABORATORY
[address] [place] [address], [place] [phone] * (ABNORMAL) Magnesium (08/19/2024 3:02 PM EDT) Magnesium 1.5(L) 1.6 - 2.6 mg/dL 08/19/2024 5:12 PM EDT [facility] LABOR[facility]ORY Blood Line / Unknown 08/19/2024 3: 02 PM EDT 08/19/2024 3:10 PM EDT us Kt Fan DO LAB BLOOD ORDERABLES Final Result [facility] LABORATORY
[address] [place] [address], * Lipase (08/19/2024 3:02 PM EDT) Lipase 13 13 - 60 U/L 08/19/2024 3:36 PM EDT [facility] LAB[facility]ORY Blood Line / Unknown 08/19/2024 3: 02 PM EDT 08/19/2024 3:10 PM EDT Kt Fan DO LAB BLOOD ORDERABLES Final Result Performing Organization Address City/[facility]/ZIP Co de Phone Number [facility] LABORATORY
[address] [place] [address], * Amylase (08/19/2024 3:02 PM EDT) Pathologist [facility] Amylase 73 28 - 100 U/L 08/19/2024 3:36 PM EDT [facility] LAB[facility] Blood Line / Unknown 08/19/2024 3: 02 PM EDT 08/19/2024 3:10 PM EDT Kt Fan DO LAB BLOOD ORDERABLES Final Result Performing Organization Address City/[facility]/ZIP Co de Phone Number [facility] LABORATORY
[address] [place] [address], * Hepatitis C Antibody (04/12/2024) Pathologist [facility] Hep C Virus Ab negative Blood Historical Provider LAB BLOOD ORDERABLES Lena l Result from Last 3 Months or Most Recently Relevant to Health Maintenance Insurance [facility] Care Teams Assault Boat Coxswain Relationship Specialty Start Date End Date Norma Friedman APRN [address] [place] G3 RAFAELA APPIAH [id number] PCP - General Family Medicine 05/14/24
--- OUTSIDE RECORDS SUMMARY | 2024-10-28 07:11 | XMS_ITS | Encounter Summary ---
[facility] Address [address] [place] [id number] Care Team Providers Care Retail Department Manager Name Role Phone Elder Norma FERNÁNDEZ Primary Care Provider + [phone] Encounter Details Date Type Department Care Team (Late st Contact Info) Description 07/07/2024 Results Follow-Up [facility] O[facility] [address] [place] [address] [place] [phone] Kelly Delgado APRN [address] [facility] [address] [place] [address] Social History Tobacco Use Types Packs/Day Years Used Date Smoking Tobacco: Never Smokeless Tobacco: Never Alcohol Use Standard Drinks/Week Comments Never 0 (1 standard drink = 0.6 oz pur e alcohol) [facility] Utilities Answer Date Recorded In the past 12 months has [employer], gas, oil, or water [employer] threatened to shut off services in your [...] 3:30 PM EST Office Visit [facility]STRO[facility]OLOG[facility] [address] [address] Robbin Escalante MD [address] [address] documented as of this encounter Visit Diagnoses Not on filedocumented in this encounter Additional Health Concerns Assessment Noted Time PHQ-2 Depression Total Score: 2 05/28/19 25 4:39 PM EDT documented as of this encounter Care Teams Retail Department Manager Relationship Specialty Start Date End Date Norma Friedman APRN [address] [place] G3 [place]FAEL[place] APPIAH [id number] PCP - General Family Medicine 05/14/24 documented as of this encounter
--- OUTSIDE RECORDS SUMMARY | 2024-10-28 07:11 | XMS_ITS | Encounter Summary ---
Author Organization Healthcare Address [address] [place] [address] Care Team Providers Care Cleaner Assistant Name Role Phone Norma Friedman JOLENE Primary Care Provider [phone] Lizz Trinh RN Unavailable Unavailable Encounter Details Date Type Department Care Team ([facility] Contact Info) Description 10/24/2024 Orders Only Medical Office Building Obstetrics and Gynecology [address] [address] [facility], [address] [place] [address] Kaitlyn Richter MD [address] [place] [address] Social History Tobacco Use Types Packs/Day Years [...] more drinks on one occasion? Never 09/23/2024 Montgomery Depression Scale Answer Date Recorded Montgomery Depression Scale Total 0 09/23/2024 The thought [...] Encounter [facility] Labor and Delivery [address] [place] [address] 11/14/2024 11:15 AM EDT Visit Medical Office Building Obstetrics and Gynecology [address] [facility], [address] [place] [address] Nneka Gipson MD [address] [place] [address] 12/25/2024 1:00 PM EST Office Visit [facility] [address] [facility], [address] [place] [address] documented as of this encounter [...] documented as of this encounter Care Teams Cleaner Assistant Relationship Specialty Start Date End Date Norma Friedman APRN [address] [place] [id number] PCP - General 09/23/24 Lizz Trinh, RN [facility] Registered Nurse Cardiology 09/26/24 documented as of this encounter
--- OUTSIDE RECORDS SUMMARY | 2024-10-28 07:11 | XMS_ITS | Encounter Summary ---
Author Organization Healthcare Address [address] [place] [address] Care Team Providers Care Colon Therapist Name Role Phone Norma Friedman JOLENE Primary Care Provider +1- [phone] Lizz Trinh RN Unavailable Unavailable Encounter Details [...] drinks on one occasion? Never 09/23/2024 [place] Depression Scale Answer Date Recorded [place] Depression Scale Total 0 09/23/2024 The thought [...] [facility] [address] [place] [address] 11/14/2024 11:15 AM EDT Visit [facility] Obst[facility]s [facility] Gynecology [address] , [address] [place] [address] Nneka Gipson MD [address] [place] [address] 12/25/2024 1:00 PM EST Office Visit [facility] Nephrology, Bone & Mineral Metabolism [address], [address] [place] [address] documented as of this encounter Visit Diagnoses Not on filedocumented in this encounter Additional Health Concerns Assessment Noted Time A fall risk assessment has been complete d for the patient 09/26/2024 8:15 AM EDT A Body Mass Index follow-up plan has been documented for the patient 10/20/2024 9:52 AM EDT documented as of this encounter Care Teams Colon Therapist Relationship Specialty Start Date End Date Norma Friedman APRN [address] [place] [address] PCP - General 09/23/24 Lizz Trinh, RN [facility] Registered Nurse Cardiology 09/26/24 documented as of this encounter
--- OUTSIDE RECORDS SUMMARY | 2024-10-28 07:11 | XMS_ITS | Encounter Summary ---
Author Organization Healthcare Address [address] [place] [address] Care Team Providers Care Video Production Coordinator Name Role Phone Norma Friedman JOLENE Primary Care Provider +1- [phone] Lizz Trinh RN Unavailable Unavailable Encounter Details Date Type Department Care Team ([facility] Contact Info) Description 10/21/2024 Telephone Ch tow operator (l&d) Virtual Dept. [address] [place] [phone] Ana Deal MD [address] [place] [address] Social History Tobacco Use Types Packs/Day Years [...] more drinks on one occasion? Never 09/23/2024 [place] Depression Scale Answer Date Recorded [place] Depression Scale Total 0 09/23/2024 The thought [...] Discussed with [facility] and [facility] Fellow lamination builder, Perry Gage, who agree that the patient [...] Upcoming Encounters Date Type Department Care Team ([facility] st Contact Info) Description 10/31/2024 Hospital Encounter [facility] Delivery [address] [place] [address] 11/14/2024 11:15 AM EDT Visit Medical Office Building Obstetrics and Gynecology [address], [address] [place] [address] Nneka Gipson MD [address] [place] [address] 12/25/2024 1:00 PM EST Office Visit [facility] Nephrology, Bone & Mineral Metabolism [address], [address] [place] [id number] documented as of this encounter Visit Diagnoses Diagnosis Esophagitis- Primary Unspecified esophagitis documented in this encounter Additional Health Concerns Assessment Noted Time A fall risk assessment has been complete d for the patient 09/26/2024 8:15 AM EDT A Body Mass Index follow-up plan has been documented for the patient 10/20/2024 9:52 AM EDT documented as of this encounter Care Teams Video Production Coordinator Relationship Specialty Start Date End Date Norma Friedman APRN [address] [place] [address] PCP - General 09/23/24 Lizz Trinh, RN [facility] Registered Nurse Cardiology 09/26/24 documented as of this encounter
--- OUTSIDE RECORDS SUMMARY | 2024-10-28 07:11 | XMS_ITS | Encounter Summary ---
Author Organization Healthcare Address [address] [place] [address] Care Team Providers Care Fisher Seal Name Role Phone Norma Friedman JOLENE Primary Care Provider +1- [phone] Lizz Trinh RN Unavailable Unavailable Encounter Details Date Type Department Care Team (Late st Contact Info) Description 10/23/2024 Orders Only [facility] Obstetrics & Gynecology [address] [place] [address] Ana Deal MD [address] [place] [address] Social History Tobacco Use Types Packs/Day Years [...] more drinks on one occasion? Never 09/23/2024 [place] Depression Scale Answer Date Recorded [place] Depression Scale Total 0 09/23/2024 The thought [...] Encounter [facility] [address] [place] [address] 11/14/2024 11:15 AM EDT Visit Medical Office Building Obstetrics and Gynecology [address] [facility] [address], [address] [place] [address] Nneka Gipson MD [address] [place] [address] 12/25/2024 1:00 PM EST Office Visit [facility] [place] Nephrology, Bone & Mineral Metabolism [address] [facility] [address], [address] [place] [address] documented as of this encounter Visit Diagnoses Not on filedocumented in this encounter Additional Health Concerns Assessment Noted Time A fall risk assessment has been complete d for the patient 09/26/2024 8:15 AM EDT A Body Mass Index follow-up plan has been documented for the patient 10/20/2024 9:52 AM EDT documented as of this encounter Care Teams Fisher Seal Relationship Specialty Start Date End Date Norma Friedman APRN [address] [place] [id number] PCP - General 09/23/24 Lizz Trinh, RN [facility] Registered Nurse Cardiology 09/26/24 documented as of this encounter
--- OUTSIDE RECORDS SUMMARY | 2024-10-28 07:12 | XMS_ITS | Clinical Summary ---
Author Organization [facility] Address [address] [place] [address] Care Team Providers Care Fur Stylist Name Role Phone Norma burger JOLENE Primary Care Provider [phone]- [phone] Lizz Trinh RN Unavailable Unavailable Allergies Active Allergy Reactions Criticality Noted Date Comments Peanut Allergen Powder-Dnfp Hives Medium 09/23/2024 Tobacco Other - please document in the comment field,Shortness of breath High 05/28/2024 SOB when exposed to smoke, contact dermatitis with skin contact Medications Prenat MV-Min [id number]-[id number] ( COMPLETE PO) 12/26/19 19 Active thiamine [...] [address] [facility], [address] [place] [address] Laury Cruz MD Supervision of high risk , antepartum (Primary Dx); 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), sequela; Renal tubular acidosis; Hypokalemia; Cardiac arrhythmia, unspecified cardiac arrhythmia type; Cholestasis during in third trimester 10/24/2024 8:00 AM EDT Office Visit [facility] [place] [address] [facility], [address] [place] [address] Dilip Vasquez MD Palpitations (Primary Dx) 10/24/2024 Orders Only Medical Office Building Obstetrics and Gynecology [address] [facility], [address] [place] [address] Kaitlyn Richter MD 10/24/2024 Travel 10/23/2024 Telephone [facility] Obstetrics & Gynecology [address] [place] [address] Ana Deal MD 10/23/2024 Orders Only [facility] Obstetrics & Gynecology [address] [place] [address] Ana Deal MD 10/23/2024 Travel 10/21/2024 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 [address] [place] [address] Ana Deal MD 10/19/2024 1:03 AM EDT Anesthesia Event [facility] [address] [place] [address] Everett Farrar MD 10/19/2024 Travel 10/18/2024 Travel 10/17/2024 3:47 PM EDT - 10/20/2024 10:16 AM EDT Hospital Encounter [facility] Labor [facility] Delivery [address] [place] [address] Hilton Montelongo MD Discharge Disposition: Home or Self Care 10/17/2024 10:30 AM EDT - 10/17/2024 3:46 PM EDT Hospital Encounter Medical Office Building Obstetrics and Gynecology [address] [facility], [address] [place] [address] NST (non-stress test) nonreactive Discharge Disposition: Home or Self Care 10/17/2024 9:30 AM EDT NST Medical Office Building Obstetrics and Gynecology [address] [facility], [address] [place] [address] growth restriction antepartum (Primary Dx) 10/17/2024 9:15 AM EDT Routine Medical Office Building Obstetrics and Gynecology [address] [facility], [address] [place] [address] Dilip Gipson MD NST (non-stress test) nonreactive (Primary Dx); Supervision of high risk , antepartum 10/17/2024 Telephone Medical Office Building Obstetrics and Gynecology [address] [facility], [address] [place] [address] Tracy Segovia, RN 10/17/2024 Telephone Medical Office Building Obstetrics and Gynecology [address] [facility], [address] [place] [address] Tracy Segovia, RN [facility] Care coordiantion 10/17/2024 Travel 10/16/2024 Results Follow-Up [facility] [place] [address] [facility] [place] [address] Dilip Vasquez MD 09/26/2024 9:06 AM EDT - 09/26/2024 11:59 PM EDT Hospital Encounter Medical Office Building Cardiac Diagnostic Testing Medical Office Building Echo Lab [address] [facility], [address] [place] [address] Palpitations; Syncope and collapse Discharge Disposition: Home or Self Care 09/26/2024 8:00 AM EDT Office Visit [facility] [place] [address] [facility], [address] [place] [address] Dilip Vasquez MD Syncope and collapse (Primary Dx); Atrial fibrillation, unspecified type (CMS/HCC); Palpitations 09/26/2024 Travel 09/25/2024 2:20 PM EDT Office Visit [facility] Nephrology, Bone [facility] Mineral Metabolism [address] , [address] [place] [address] Bill Patrick MD Hypokalemia (Primary Dx) 09/25/2024 Travel 09/23/2024 10:00 AM EDT Office Visit Medical Office Building Obstetrics and Gynecology [address] , [address] [place] [address] Liborio Weller MD Supervision of high risk , antepartum (Primary Dx); Cardiac arrhythmia, unspecified cardiac arrhythmia type 09/23/2024 Travel 09/17/2024 Telephone [facility] Nephrology, Bone & Mineral Metabolism [address] [facility], [address] [place] [address] Sherley Gold, 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 Never 09/23/2024 Henley Depression Scale Answer Date Recorded Henley Depression Scale Total 0 09/23/2024 The thought [...] Upcoming Encounters Date Type Department Care Team ([facility] st Contact Info) Description 10/31/2024 Hospital Encounter [facility] Labor and Delivery [address] [place] [address] 11/14/2024 11:15 AM EDT Visit Medical Office Building Obstetrics and Gynecology [address] [facility], [address] [place] [address] Dilip Gipson MD [address] [place] [address] 12/25/2024 1:00 PM EST Office Visit [facility] Nephrology, Bone & Mineral Metabolism [address] [facility], [address] [place] [address] Health Maintenance Due Date Last Done Comments [facility]-/Child/Adol SDOH Screenings 1991 [facility]- SDOH Screenings 2009 [facility]-Adult SDOH Screenings 2009 [facility]-Hepatitis B Vaccines (1 of 3 - 19+ 3-dose series) 2010 [facility]-Pap Smear 2012 [facility]-Hepatitis A Vaccines (2 of 2 - Risk 2-dose series) 07/16/2018 01/15/2018 [facility]-Cervical Cancer Screening 2021 [facility]-HPV/Cotest 2021 [facility]-Varicella Vaccines (1 of 2 - 13+ 2-dose series) 06/29/2022 [id number] Vaccine (2 - 2024- season) 2024 05/04/2022 [...] HR URINE Routine 10/19/2024 2:43 PM EDT ALDOSTERONE, URINE, 24 HOUR Routine 10/19/2024 2:42 PM EDT MAGNESIUM, PLASMA Add-On 10/19/2024 7:0 [...] 09/26/2024 9:32 AM EDT Hypokalemia ANTINUCLEAR ANTIBODY (JFEFERY) WITH HEP-2 SUBSTRATE, IGG BY IFA (SO) [...] of3 resultswithin the time period is included. POCT Urine Color Yellow POCT Urine Clarity Clear POCT Glucose Urine Negative Negative mg/dL POCT Bilirubin, Urine Negative Negative POCT Ketones, Urine Negative Negative mg/dL POCT Specific [place], Urine 1.015 POCT Blood, Urine Negative Negative POCT pH, Urine 8.5(A) 5.0 to 8.0 POCT Protein, Urine Trace(A) Negative mg/dL POCT Urobilinogen, Urine 0.2 0.2, 1 E.U./dL POCT Nitrite, Urine Negative Negative POCT Leukocyte Esterase, Urine Negative Negative Test Strip Lot Number [id number] Test Strip Lot Expiration 08/2025 Urine Urine specimen obtained by clean catch procedure / Unknown 10/24/2024 10:13 AM EDT Laury Cruz MD POINT OF CARE TEST ENTER/EDIT ORDERABLES Final Result * N-Terminal Probnp, Plasma (10/24/2024 8:38 AM EDT) Only the most recent of2 resultswithin the time period is included. N-Terminal, PROBNP, Plasma 175 0 - 449 pg/mL 10/24/2024 11:40 AM EDT [facility] Blood Venous blood specimen / Unknown Venipuncture / Unknown 10/24/2024 8:38 AM EDT 10/24/2024 8:40 AM EDT Dilip Vasquez MD LAB BLOOD ORDERABLES Final Result [facility] [address] [place] [address] * Troponin T, High Sensitivity, Cardiac Risk Assessment (10/24/2024 8:38 AM EDT) Pathologist [facility] Troponin T, High Sensitivity, 0 Hour <6 <14 ng/L 10/24/2024 11:40 AM EDT [facility] Blood Venous blood specimen / Unknown Venipuncture / Unknown 10/24/2024 8:38 AM EDT 10/24/2024 8:40 AM EDT Dilip Vasquez MD LAB BLOOD ORDERABLES Final Result [facility] [address] [place] [address] * (ABNORMAL) Herpes Simplex Virus by PCR (Serum) (10/19/2024 9:28 PM EDT) [facility] Herpes Simplex Virus 1 (HSV-1) PCR Result [...] developed and its performance characteristics determined by [facility] as appropriate for clinical purposes. This assay has not been cleared or approved by the FDA, but is performed in a CLIA regulated laboratory that is qualified to perform high-complexity testing. This PCR assay was developed and its performance characteristics determined by [facility] as appropriate for clinical purposes. This assay has not been cleared or approved by the FDA, but is performed in a CLIA regulated laboratory that is qualified to perform high-complexity testing. This PCR assay was developed and its performance characteristics determined by [facility] as appropriate for clinical purposes. This assay has not been cleared or approved by the FDA, but is performed in a CLIA regulated laboratory that is qualified to perform high-complexity testing. us Hilton Montelongo MD LAB MICROBIOLOGY - GENERAL OR DERABLES Final Result [facility] [address] [place] [address] * Brooke Mejias Virus (EBV) Quantitative PCR [...] developed and it's performance characteristics determined by [facility] as appropriate for clinical purposes. [...] developed and it's performance characteristics determined by [facility] as appropriate for clinical purposes. This assay has not been cleared or approved by the FDA, but is performed in a CLIA regulated laboratory that is qualified to perform high-complexity testing. Hilton Montelongo MD LAB BLOOD ORDERABLES Final Re sult Performing Organization Address City/[facility] de Phone Number [facility] [address] [place] [address] * Cytomegalovirus (CMV) Quantitative PCR (10/19/2024 9:28 PM EDT) [facility] Cytomegalovirus (CMV) Quantitative Interpretation Not Detected Not Detected 10/21/2024 12:44 PM EDT [facility] Blood Venous blood specimen / Unknown Venipuncture / Unknown 10/19/2024 9:28 PM EDT 10/19/2024 11:58 PM EDT Narrative [facility] - 10/21/2024 12:44 PM EDT The Sensing Electromagnetic Plus M2000 CMV test is a Real Time [...] Montelongo MD LAB BLOOD ORDERABLES Final Re sul Performing Organization Address [facility] [place] [address] * Phosphorus, Plasma (10/19/2024 9:28 PM EDT) Only the most recent of11 resultswithin the time period is included. [facility] Phosphorus, Plasma 2.5 2.5 - 4.5 mg/dL 10/19/2024 10:07 PM EDT [facility] Blood Venous blood specimen / Unknown Venipuncture / Unknown 10/19/2024 9:28 PM EDT 10/19/2024 9:38 PM EDT Santos Herrmann MD LAB BLOOD ORDERABLES Final Resu lt Performing Organization Address [facility] [place] [address] * (ABNORMAL) Magnesium (10/19/2024 9:28 PM EDT) [...] [facility] [address] [place] [address] * (ABNORMAL) Basic metabolic panel (10/19/2024 9:28 [...] ORDERABLES Final Resu lt Performing Organization Address City/[facility] Co de Phone Number [facility] [address] [place] [address] * ECG Adult (10/19/2024 6:45 PM EDT) Only the most recent of5 resultswithin the time period is included. EKG DIAGNOSIS CLASS Normal MUSE ECG Ventricular Rate 82 BPM MUSE ECG Atrial Rate 82 BPM MUSE ECG SD Interval 138 ms MUSE ECG QRSD Interval 80 ms MUSE ECG QT Interval 360 ms MUSE ECG QTC Interval 420 ms MUSE ECG P [place] 46 degrees MUSE ECG R [place] 29 degrees MUSE ECG T Wave [place] 36 degrees MUSE ECG Diagnosis Normal sinus rhythm MUSE ECG Diagnosis Normal ECG MUSE ECG Diagnosis MUSE ECG Diagnosis Confirmed by Noel Osman ([id number]) on 10/20/2024 12:15:29 PM MUSE ECG 10/19/2024 6:45 PM EDT 10/20/2024 12:15 PM EDT us Hilton Montelongo MD ECG ORDERABLES Final Result Performing Organization Address City/[facility]/ZIP Co de Phone Number MUSE ECG [...] sult [facility] [address] [place] [address] * US Abdomen Focused Region Liver, GB, [...] MD LAB URINE ORDERABLES Final Resu lt [facility] [address] [place] [address] * Albumin-creatinine ratio, 24 hr urine (10/19/2024 [...] MD LAB URINE ORDERABLES Final Resu lt [facility] [address] [place] [address] * Calcium, 24 Hour Urine (10/19/2024 2:43 [...] ORDERABLES Final Resu lt Performing Organization Address [facility] Co de Phone Number [facility] [address] [place] [address] * Creatinine, 24 Hour Urine (10/19/2024 2:43 [...] ORDERABLES Final Resu lt Performing Organization Address City/[facility]/ZIP Co de Phone Number [facility] [address] [place] [address] * Sodium, 24 Hour, Urine (10/19/2024 2:43 [...] ORDERABLES Final Resu lt Performing Organization Address [facility]/ZIP Co de Phone Number [facility] [address] [place] [address] * Total Protein, 24 Hour Urine (10/19/2024 [...] ORDERABLES Final Resu lt Performing Organization Address [facility]/ZIP Co de Phone Number [facility] [address] [place] [address] * Potassium, Urine, 24 Hour (10/19/2024 2:43 [...] ORDERABLES Final Resu lt Performing Organization Address [facility]/ZIP Co de Phone Number [facility] [address] [place] [address] * (ABNORMAL) Magnesium, urine, 24 hour (10/19/2024 [...] ORDERABLES Final Resu lt Performing Organization Address [facility] Co de Phone Number [facility] [address] [place] [address] * Chloride, 24 Hour Urine (10/19/2024 2:43 [...] MD LAB URINE ORDERABLES Final Resu lt [facility] [address] [place] [address] * (ABNORMAL) Aldosterone, urine, 24 hour (10/19/2024 2:42 PM EDT) Creatinine, Urine - per 24h 908 700 - 1600 mg/d 10/27/2024 10:59 PM EDT [facility] ([facility]) Creatinine, Urine - per volume 33 mg/dL 10/27/2024 10:59 PM EDT [facility] ([facility]) Total Volume 2750 mL 10/27/2024 10:59 PM EDT [facility] ([facility]) Hours Collected 24 hr 10/27/2024 10:59 PM EDT [facility] ([facility]) ALDOSTERONE,UR INE RESULT 310.6(H) 1.2 - 28.1 ug/d 10/27/2024 10:59 PM EDT [facility] ([facility]) Urine Urine specimen obtained by clean catch procedure / Unknown Non-blood Collection / Unknown 10/19/2024 2:42 PM EDT 10/19/2024 4:27 PM EDT Narrative [facility] ([facility]) - 10/27/2024 10:59 PM EDT Per 24h calculations are provided to aid interpretation for collections with a duration of 24 hours and an average daily urine volume. For specimens with notable deviations in collection time or volume, ratios of analytes to a corresponding urine creatinine concentration may assist in result interpretation. Performed By: [facility] [address] [place] [address] Neon Glass Bender: Brandon Bell MD, PhD CLIA Number: [id number] Santos Herrmann MD LAB URINE ORDERABLES Final Resu lt [facility] ([facility]) [address] [place] [address] * (ABNORMAL) Aldosterone (10/18/2024 10:56 PM EDT) [facility] Aldosterone 115.0(H) 4.0 - 31.0 ng/dL 10/21/2024 8:21 AM EDT [facility] Blood Venous blood specimen / Unknown Venipuncture / Unknown 10/18/2024 10:56 PM EDT 10/18/2024 11:29 PM EDT Santos Herrmann MD LAB BLOOD ORDERABLES Final Resu lt Performing Organization Address City/[facility]/ZIP Co de Phone Number [facility] [address] [place] [address] * (ABNORMAL) Plasma Renin Activity (LC/MS/MS) (10/18/2024 10:56 PM EDT) [facility] PRA RESULT 30.67(H) 0.25 - 5.82 ng/mL/h 10/24/2024 7:47 PM EDT [facility] ([facility]) ([facility]) Comment: This test was developed and its analytical performance characteristics have been determined by [employer]. It has not been cleared or approved by the FDA. This assay has been validated pursuant to the CLIA regulations and is used for clinical purposes. Blood Venous blood specimen / Unknown Venipuncture / Unknown 10/18/2024 10:56 PM EDT 10/18/2024 11:08 PM EDT Narrative [facility] ([facility]) - 10/24/2024 7:47 PM EDT Performing Organization Information: Site ID: [id number] Name: [facility] Address: [address] [place] [id number] Director: Malik Islas MD, PhD Santos Herrmann MD LAB BLOOD ORDERABLES Final Resu lt Performing Organization Address City/[facility]/ZIP Co de Phone Number [facility] ([facility]) ([facility]) [employer] Alvarez [address] [address] * Group B Streptococcus by PCR (10/18/2024 1:47 PM EDT) [facility] Group B Streptococcus PCR Result Not Detected [...] Result [facility] [address] [place] [address] * ECHO, ADULT TRANSTHORACIC COMPLETE (10/18/2024 11:40 [...] Root Diam 31 mm RILEY ISCV PA SD(ACCEL) 28.2 mmHg RILEY ISCV LVLs ap2 6.7 [...] is no recent study available for direct ggoz-ta-[id number] comparison. Patient is 33 wks 5 days [...] is no recent study available for direct nhyj-xb-ctes comparison. us Hilton Montelongo MD CV ECHO PROCEDURES Final Resu lt * POCT glucose meter (10/18/2024 9:42 AM EDT) POCT Glucose 78 74 - 99 mg/dL 10/18/2024 9:52 AM EDT [facility] Comment:Accuracy of a glucos e [...] for testing. Comment 10/18/2024 9:52 AM EDT [facility] Business Line Controller ID Tex Harman 025 9:52 AM EDT [facility] Device ID [id number] 10/18/2024 9:52 AM EDT HEALTHCARE LAB Specimen Type POC Capillary 10/18/2024 9:52 AM EDT HEALTH[facility]ARE LAB Blood Capillary blood specimen / Unknown 10/18/2024 9:42 AM EDT 10/18/2024 9:52 AM EDT Result Jaden Montelongo MD LAB POINT OF CARE TE ST DOCKED DEVICE UNSOLICITED RESULTS Final Result Performing Organization Address City/[facility]/ZIP Co de Phone Number [facility] [address] [place] [address] * Light Green Top (10/18/2024 9:14 AM EDT) Extra Hold for add-ons 10/18/2024 12:01 PM EDT [facility] Comment:Auto resulted. Blood Venous blood specimen / Unknown 10/18/2024 9:14 AM EDT 10/18/2024 9:27 AM EDT Result Jaden Montelongo MD LAB BLOOD ORDERABLES Final Re sult Performing Organization Address [facility] de Phone Number [facility] [address] [place] [address] * OB US Biophysical Profile wo Non Stress Testing (10/18/2024 8:50 AM EDT) Anatomical Region Laterality Modality Body Ultrasound 10/18/2024 8:28 AM EDT Impressions 10/18/2024 9:40 AM EDT The OB Ultrasound you requested has been resulted. Please navigate to the Imaging tab in [facility] for review. This message has been generated by the interface. Narrative Procedure Note Dilip Gipson MD - 10/18/2024 IMPRESSION: The OB Ultrasound you requested has been resulted. Please navigate to theImaging tab in [facility] for review. This message has been generated by theinterface. Result Jaden Montelongo MD IMG OB US PROCEDURES Final [...] ORDERABLES Final Re sult Performing Organization Address City/[facility]/ZIP Co de Phone Number [facility] [address] [place] [address] * (ABNORMAL) Ionized calcium, whole blood (10/18/2024 3:38 AM EDT) Ionized Calcium, Whole Blood 4.3(L) 4.6 - 5.1 mg/dL LAB HEMATOLOGY METHOD 10/18/2024 5:42 AM EDT [facility] Blood Venous blood specimen / Unknown Venipuncture / Unknown 10/18/2024 3:38 AM EDT 10/18/2024 3:48 AM EDT Hilton Montelongo MD LAB BLOOD ORDERABLES Final Re sult Performing Organization Address City/[facility]/ZIP Co de Phone Number [facility] [address] [place] [address] * (ABNORMAL) Blood gas panel, venous (10/18/2024 [...] [facility] [address] [place] [address] * Troponin T, High Sensitivity, 2 Hour, Plasma (10/18/2024 1:12 AM EDT) Only the most recent of2 resultswithin the time period is included. Pathologist [facility] Troponin T, High Sensitivity, 2 Hour <6 <14 ng/L 10/18/2024 1:46 AM EDT [facility] Blood Venous blood specimen / Unknown Venipuncture / Unknown 10/18/2024 1:12 AM EDT 10/18/2024 1:18 AM EDT Hilton Montelongo MD LAB BLOOD ORDERABLES Final Re sult [facility] [address] [place] [address] * Bile acids, total (10/18/2024 1:12 AM EDT) [facility] BILE ACIDS, TOTAL 5 0 - 10 umol/L 10/20/2024 12:29 AM EDT [facility] ([facility]) Blood Venous blood specimen / Unknown Venipuncture / Unknown 10/18/2024 1:12 AM EDT 10/18/2024 1:18 AM EDT Narrative [facility] ([facility]) - 10/20/2024 12:29 AM EDT INTERPRETIVE INFORMATION: Bile Acids, Total Reference Interval applies to fasting specimens. Performed By: [facility] [address] [place] [address] Neon Glass Bender: Brandon Bell MD, PhD CLIA Number: [id number] Hilton Montelongo MD LAB BLOOD ORDERABLES Final Re sult Performing Organization Address [facility] Co de Phone Number [facility] ([facility]) [address] [place] [address] * Group A Streptococcus by PCR (10/17/2024 11:25 PM EDT) [facility] Group A Streptococcus PCR Result Not Detected Not Detected 10/18/2024 12:38 AM EDT [facility] Swab Structure of peritonsillar tissue / Unknown Non-blood Collection / Unknown 10/17/2024 11:25 PM EDT 10/17/2024 11:49 PM EDT Hilton Montelongo MD LAB MICROBIOLOGY - GENERAL OR DERABLES Final Result Performing Organization Address [facility]/ZIP Co de Phone Number [facility] [address] [place] [address] * Troponin T, High Sensitivity, 0 Hour [...] ORDERABLES Final Re sult Performing Organization Address [facility] Co de Phone Number [facility] [address] [place] [address] * (ABNORMAL) CBC (10/17/2024 10:41 PM EDT) [...] sult [facility] [address] [place] [address] * (ABNORMAL) Comprehensive metabolic panel (10/17/2024 10:41 [...] sult [facility] [address] [place] [address] * SARS CoV-2/COVID-19 by PCR (10/17/2024 8:50 PM EDT) SARS CoV-2/COVID-1 9 RNA PCR Result Not Detected Not Detected 10/19/2024 1:56 AM EDT [facility] Swab Nasopharyngeal structure / Unknown Non-blood [...] MICROBIOLOGY - GENERAL OR DERABLES Final Result [facility] [address] [place] [address] * Nasopharyngeal Respiratory Panel (10/17/2024 8:50 PM EDT) [facility] Nasopharyngeal Respiratory PCR Interpretation Not Detected for all analytes Not Detected for all analytes 10/17/2024 11:23 PM EDT [facility] Swab Nasopharyngeal structure / Unknown Non-blood [...] Respiratory PCR Panel is performed using the [employer] e[employer] instrument. This test is FDA approved [...] OR DERABLES Final Result Performing Organization Address [facility] [place] [address] * Treponema Pallidum (Syphilis) Antibodies with Reflex to RPR and RPR Titer (Those with NO known Syphilis) (10/17/2024 7:31 PM EDT) Pathologist [facility] Syphilis Antibody (IgG+IgM) Nonreactive Nonreactive 10/17/2024 10:00 PM EDT [facility] Comment:Nonreactive. No sero logic evidence of syphilis. No follow-up necessary unless clinically indicated (e.g., early syphilis). Blood Venous blood specimen / Unknown Venipuncture / Unknown 10/17/2024 7:31 PM EDT 10/17/2024 7:44 PM EDT Hilton Montelongo MD LAB BLOOD ORDERABLES Final Re sult Performing Organization Address [facility]/ZIP Co de Phone Number [facility] [address] [place] [address] * Type and Screen (10/17/2024 7:31 PM [...] ORDERABLE S Final Result BLOOD BANK [address] [place] [address], [place] * XR Chest 1 View (10/17/2024 [...] 10/17/2024 4:40 PM us Job N Devine CAPTION WRITER, CNM IMG XR PROCEDURES Fi nal Result * (ABNORMAL) D DIMER, QUANTITATIVE (10/17/2024 4:05 PM EDT) Pathologist [facility] D Dimer, Quantitative 2.33(H) <0.50 ug/mL FEU [...] considered in the clinical context. Job Devine CAPTION WRITER, CNAdeline LAB BLOOD ORDERABLES Final Result [facility] [address] [place] [address] * (ABNORMAL) CBC and Differential (10/17/2024 4:05 PM EDT) [facility] WBC Count 9.54 3.70 - 10.30 10*3/uL [...] PM EDT 10/17/2024 4:24 PM EDT Narrative [facility] - 10/17/2024 4:41 PM EDT Therapeutic decision making should be based on absolute values, rather than percentages. us Job Devine CAPTION WRITER, CNM LAB BLOOD ORDERABLES Final Result Performing Organization Address City/[facility]/ZIP Co de Phone Number [facility] [address] [place] [address] * (ABNORMAL) Uric acid (10/17/2024 4:05 PM EDT) Uric Acid, Plasma 10.1(H) 3.1 - 7.1 mg/dL 10/17/2024 9:51 PM EDT [facility] Blood Venous blood specimen / Unknown Venipuncture / Unknown 10/17/2024 4:05 PM EDT 10/17/2024 4:20 PM EDT us Hilton Montelongo MD LAB BLOOD ORDERABLES Final Re sult Performing Organization Address City/[facility]/ZIP Co de Phone Number [facility] [address] [place] [address] * (ABNORMAL) Lactate dehydrogenase (10/17/2024 4:05 PM EDT) LDH, Plasma 267(H) 116 - 250 U/L 10/17/2024 9:51 PM EDT [facility] Comment:Hemolyzed, result ma y be falsely increased. Blood Venous blood specimen / Unknown Venipuncture / Unknown 10/17/2024 4:05 PM EDT 10/17/2024 4:20 PM EDT us Hilton Montelongo MD LAB BLOOD ORDERABLES Final Re sult Performing Organization Address City/[facility] Co de Phone Number [facility] [address] [place] [address] * OB US Detail Anatomy (10/17/2024 1:34 PM EDT) Anatomical Region Laterality Modality Body Ultrasound 10/17/2024 11:2 0 AM EDT Impressions 10/17/2024 2:52 PM EDT The OB Ultrasound you requested has been resulted. Please navigate to the Imaging tab in [facility] for review. This message has been generated by the interface. Narrative Procedure Note Melonie Wheeler MD - 10/17/2024 IMPRESSION: The OB Ultrasound you requested has been resulted. Please navigate to theImaging tab in [facility] for review. This message has been generated by theinterface. us Dilip Gipson MD IMG OB US PROCEDURES Lena l Result * Chloride, urine, random (09/26/2024 10:07 AM EDT) Chloride, Urine 25 mmol/L 2:03 PM EDT [facility] Urine Urine specimen obtained by clean catch procedure / Unknown Non-blood Collection / Unknown 09/26/2024 10:07 AM EDT 09/26/2024 10:07 AM EDT us Bill Patrick MD LAB URINE ORDERABLES Final Resul t [facility] [address] [place] [address] * Sodium, urine, random (09/26/2024 10:02 AM EDT) Sodium, Urine 110 mmol/L 09/26/2024 11:55 AM EDT [facility] Urine Urine specimen obtained by clean catch procedure / Unknown Non-blood Collection / Unknown 09/26/2024 10:02 AM EDT 09/26/2024 10:02 AM EDT us Bill Patrick MD LAB URINE ORDERABLES Final Resul t Performing Organization Address [facility] de Phone Number [facility] [address] [place] [address] * Potassium, urine, random (09/26/2024 10:02 AM EDT) Potassium, Urine 43 mmol/L 09/26/2024 11:55 AM EDT [facility] Urine Urine specimen obtained by clean catch procedure / Unknown Non-blood Collection / Unknown 09/26/2024 10:02 AM EDT 09/26/2024 10:02 AM EDT us Bill Patrick MD LAB URINE ORDERABLES Final Resul t Performing Organization Address [facility] de Phone Number [facility] [address] [place] [address] * Osmolality, urine (09/26/2024 10:02 AM EDT) Osmolality, Urine 404 50 - 1,200 mOsm/kg 09/26/2024 1:48 PM EDT [facility] Urine Urine specimen obtained by clean catch procedure / Unknown Non-blood Collection / Unknown 09/26/2024 10:02 AM EDT 09/26/2024 10:02 AM EDT us Bill Patrick MD LAB URINE ORDERABLES Final Resul t Performing Organization Address [facility] de Phone Number [facility] [address] [place] [address] * SSA 52 and 60 (Ro) (YARA) Antibodies, IgG (09/26/2024 9:32 AM EDT) SSA-52 (RO52) (YARA) Antibody, IgG 2 0 - 40 AU/mL 09/28/2024 5:47 PM EDT [facility]) SSA-60 (RO60) (YARA) Antibody, IgG 0 0 - 40 AU/mL 09/28/2024 5:47 PM EDT [facility] (BEAKER) Serum 09/26/2024 9:32 AM EDT 09/26/2024 9:32 AM EDT Narrative [facility] (TERRI) - 09/28/2024 5:47 [...] AU/mL or Greater .......... Positive Performed By: [facility] [address] [place] [address] Neon Glass Bender: Brandon Bell MD, PhD CLIA Number: [id number] Bill Patrick MD LAB REF LAB BLOOD AND FLUID ORD Final Result [facility] [employer]) [address] [id number] * SSB (LA) (YARA) ANTIBODY, IGG (09/26/2024 9:32 AM EDT) SSB (LA) (YARA) Antibody, IgG 0 0 - 40 AU/mL 09/28/2024 5:47 PM EDT [facility] (TERRI) Serum Venous blood specimen / Unknown 09/26/2024 9:32 AM EDT 09/26/2024 9:32 AM EDT Narrative [facility] [employer]CH) - 09/28/2024 5:47 PM EDT INTERPRETIVE INFORMATION: [...] (PSS) also have this antibody. Performed By: [facility] [address] [place] [address] Neon Glass Bender: Brandon Bell MD, PhD CLIA Number: [id number] Bill Patrick MD LAB BLOOD ORDERABLES Final Resul t Performing Organization Address City/[facility]/ZIP Co de Phone Number [facility] [employer]) [address] [place] [address] * Rheumatoid factor, plasma (09/26/2024 9:32 AM EDT) Pathologist [facility] Rheumatoid Factor, Plasma <10 <14 IU/mL 09/26/2024 1:49 PM EDT [facility] Blood Venous blood specimen / Unknown Venipuncture / Unknown 09/26/2024 9:32 AM EDT 09/26/2024 9:32 AM EDT Bill Patrick MD LAB BLOOD ORDERABLES Final Resul t [facility] [address] [place] [address] * Antinuclear Antibody (JEFFERY), HEp-2, IgG (09/26/2024 9:32 AM EDT) Pathologist [facility] JEFFERY INTERPRETIVE COMMENT See Note 09/28/2024 5:13 PM EDT [facility] ([employer]) Anti Nuc Ab Screen <1:80 <1:80 09/28/2024 5:13 PM EDT [facility] [employer]CH[employer]) Blood Venous blood specimen / Unknown Venipuncture / Unknown 09/26/2024 9:32 AM EDT 09/26/2024 9:32 AM EDT Narrative [facility] SORENSEN) - 09/28/2024 5:13 PM EDT INTERPRETIVE [...] rings, and cytoplasmic speckled patterns. Performed By: [facility] [address] [place] [address] Neon Glass Bender: Brandon Bell MD, PhD CLIA Number: [id number] us Bill Patrick MD LAB BLOOD ORDERABLES Final Resul t [facility] [employer]) [address] [place] [address] * (ABNORMAL) Osmolality (09/26/2024 9:32 AM EDT) Osmolality, Serum 273(L) 275 - 295 mOsm/Kg 09/26/2024 2:10 PM EDT [facility] Blood Venous blood specimen / Unknown Venipuncture / Unknown 09/26/2024 9:32 AM EDT 09/26/2024 9:32 AM EDT us Bill Patrick MD LAB BLOOD ORDERABLES Final Resul t [facility] [address] [place] [address] * (ABNORMAL) Renal function panel (09/26/2024 9:32 AM EDT) Pathologist [facility] Glucose, Plasma 87 74 - 99 mg/dL 09/26/2024 12:24 PM EDT [facility] BUN, Plasma 5(L) 7 - 21 mg/dL 09/26/2024 12:24 PM EDT [facility] Creatinine, Plasma 0.72 0.60 - 1.10 mg/dL 09/26/2024 12:24 PM EDT [facility] BUN/Creatinine Ratio 7 09/26/2024 12:24 PM EDT [facility] Sodium, Plasma 135(L) 136 - 145 mmol/L 09/26/2024 12:24 PM EDT [facility] Potassium, Plasma 3.1(L) 3.6 - 4.9 mmol/L 09/26/2024 12:24 PM EDT [facility] Chloride, Plasma 95(L) 97 - 107 mmol/L 09/26/2024 12:24 PM EDT [facility] CO2, Plasma 26 22 - 29 mmol/L 09/26/2024 12:24 PM EDT [facility] Anion Gap 14 6 - 16 mmol/L 09/26/2024 12:24 PM EDT [facility] Total Calcium, Plasma 9.4 8.9 - 10.2 mg/dL 09/26/2024 12:24 PM EDT [facility] Phosphorus, Plasma 3.5 2.5 - 4.5 mg/dL 09/26/2024 12:24 PM EDT [facility] Albumin, Plasma 3.6 3.5 - 5.2 g/dL 09/26/2024 12:24 PM EDT [facility] eGFRcr 113.4 mL/min/1.7 3m*2 09/26/2024 12:24 PM EDT [facility] Comment:Reported eGFRcr in m L/min/1.73m2 is based the CKD-EPI 2020 equation that does not use a race coefficient. Blood Venous blood specimen / Unknown Venipuncture / Unknown 09/26/2024 9:32 AM EDT 09/26/2024 9:32 AM EDT Bill Patrick MD LAB BLOOD ORDERABLES Final Resul t [facility] [address] [place] [address] * Adult Patch Monitor - 7 Day [...] on Day 3 / 08:47:57 pm SVE(s): [place] was 3.46 %, [id number] total SVE(s) SV Arrhythmia(s): 21 events, longest event 7 beats on Day :05:26 am, fastest event 111 bpm on Day 02:02:39 am PVC(s): [place] was 0.03 %, 189 total PVC(s), 1 [...] ORDERABLES Fin al Result Performing Organization Address City/[facility] de Phone Number SUNQUEST * Hepatitis C Antibody (01/22/2019 9:57 AM EST) Hepatitis C Antibody NEGATIVE Reference Range: Negative SUNQUEST 01/22/2019 9:57 AM EST 01/22/2019 12:12 PM EST Pradip Damico APRN, TERRY LAB BLOOD ORDERABLES Fin al Result Performing Organization Address City/[facility] Co de Phone Number SUNQUEST from Last 3 Months or Most Recently Relevant to Health Maintenance Insurance [facility] MEDICAID Advance Directives * Full Code (Latest Code Status on File) Date Activated Date Inactivated Comments 10/17/2024 7:12 PM 10/20/2024 12:16 PM Question Answer Comments I have reviewed the capacity from the link above and, if needed, have updated to appropriate status: Yes Care Teams Fur Stylist Relationship Specialty Start Date End Date Norma Friedman, CAPTION WRITER [address] [place] [address] PCP - General 09/23/24 Lizz Trinh, RN [facility] Registered Nurse Cardiology 09/26/24
--- OUTSIDE RECORDS SUMMARY | 2024-10-28 07:12 | XMS_ITS | Encounter Summary ---
Author Organization Healthcare Address [address] [place] [address] Care Team Providers Care Port Surveyor Name Role Phone Norma Friedman JOLENE Primary Care Provider +1- [phone] Lizz Trinh RN Unavailable Unavailable Encounter Details [...] more drinks on one occasion? Never 09/23/2024 [place] Depression Scale Answer Date Recorded [place] Depression Scale Total 0 09/23/2024 The [...] Encounter [facility] Labor and Delivery [address] [place] [address] 11/14/2024 11:15 AM EDT Visit Medical Office Building Obstetrics and Gynecology [address] [facility], [address] [place] [address] Nneka Gipson MD [address] [place] [address] 12/25/2024 1:00 PM EST Office Visit Professional [employer] [place] [facility], [facility] Metabolism [address] [facility], [address] [place] [address] documented as [...] documented as of this encounter Care Teams Port Surveyor Relationship Specialty Start Date End Date Norma Friedman, COMPUTER ENGINEERING TECHNICIAN [address] [place] [address] PCP - General 09/23/24 Lizz Trinh, RN [facility] Registered Nurse Cardiology 09/26/24 documented as of this encounter
--- OUTSIDE RECORDS SUMMARY | 2024-10-28 07:12 | XMS_ITS | Encounter Summary ---
Author Organization Healthcare Address [address] [place] [address] Care Team Providers Care Programming Director Name Role Phone Norma Friedman JOLENE Primary Care Provider +1- [phone] Lizz Trinh RN Unavailable Unavailable Encounter Details Date Type Department Care Team (Late st Contact Info) Description 10/23/2024 Telephone [facility] Obstetrics & Gynecology [address] [place] [address] Veronica Deal MD [address] [place] [id number] Social History Tobacco Use Types Packs/Day Years [...] more drinks on one occasion? Never 09/23/2024 [place] Depression Scale Answer Date Recorded [place] Depression Scale Total 0 09/23/2024 The thought [...] Upcoming Encounters Date Type Department Care Team ([facility] st Contact Info) Description 10/31/2024 Hospital Encounter [facility] H Labor and Delivery [address] [place] [address] 11/14/2024 11:15 AM EDT Visit Medical Office Building Obstetrics and Gynecology [address] [facility], [address] [place] [address] Nneka Gipson MD [address] [place] [address] 12/25/2024 1:00 PM EST Office Visit Professional [facility] Nephrology, Bone & Mineral Metabolism [address] [facility], [address] [place] [address] documented as of this encounter Visit Diagnoses Not on filedocumented in this encounter Additional Health Concerns Assessment Noted Time A fall risk assessment has been complete d for the patient 09/26/2024 8:15 AM EDT A Body Mass Index follow-up plan has been documented for the patient 10/20/2024 9:52 AM EDT documented as of this encounter Care Teams Programming Director Relationship Specialty Start Date End Date Norma Friedman APRN [address] [place] [address] PCP - General 09/23/24 Lizz Trinh, RN [facility] Registered Nurse Cardiology 09/26/24 documented as of this encounter
[2024-10-28 08:14] LABS: Chloride 108 mmol/L (98-107)
[2024-10-28 08:15] LABS: Albumin Level 2.8 g/dl (3.5-5.0); Potassium 3.5 mmoL/L (3.5-5.1); Sodium 136 mmol/L (136-145)
[2024-10-28 08:17] LABS: Blood Urea Nitrogen 5 mg/dl (7-17); Creatinine,Serum 0.60 mg/dl (0.52-1.04); Estimated Glomerular Filt Rate 115 ml/min (>60); GFR (African American) 139 ML/MIN (>60)
[2024-10-28 08:18] LABS: Alanine Aminotransferase 16 U/L (12-78); Albumin/Globulin Ratio 1.0 (1.1-1.8); Alkaline Phosphatase 84 U/L (38-126); Aspartate Amino Transferase 34 U/L (14-36); Bilirubin,Total 0.5 mg/dl (0.2-1.3); Calcium 8.1 mg/dl (8.4-10.2); Globulin 2.8 g/dL (1.3-3.2); Glucose 78 mg/dl (74-100); Magnesium 1.6 mg/dl (1.6-2.3); Phosphorous 4.0 mg/dl (2.5-4.5); Total Protein,Serum 5.6 g/dl (6.3-8.2)
[2024-10-28 08:27] LABS: Anion Gap 8.5 mEq/L (5-15); Carbon Dioxide 23 mmol/L (22.0-30.0)
--- NOTE | 2024-10-28 09:23 | PC.NURSE ---
labs drawn in outpatient lab prior to arrival here. pt did not want to stay for potassium replacement per electrolyte replacement protocol. K+ 3.5, pt was not symptomatic. pt scheduled for lab recheck on monday.
[2024-10-29 20:11] LABS: Calcium, Ionized 4.8 mg/dL (4.5-5.6)
== END 2024-10-28 23:59 | disposition home or self-care (01) ==
LOC: INF 07:06
PROVIDERS: PCP Nurse Practitioner Family; Visit Provider Nurse Practitioner Obstetrics & Gynecology
DX: E87.6 Hypokalemia (principal); E83.42 Hypomagnesemia
CPT/HCPCS: 36415; 80053; 82330; 83735; 84100

== ENCOUNTER 2024-10-29 12:10 | Outpatient (CLI) | payer OTHER, SELFPAY ==
--- OUTSIDE RECORDS SUMMARY | 2024-09-23 10:00 | XMS_ITS | Encounter Summary ---
Author Organization [facility] Address [address] [place] [address] Care Team Providers Care Hot Mix Operator Name Role Phone Norma Friedman JOLENE Primary Care Provider +1- [phone] Reason for Referral * Consultation (Routine) - Closed Specialty Diagnoses / Procedures Referred By Contac t Referred To Contact Cardiology Diagnoses Supervision of high risk , antepartum Cardiac arrhythmia, unspecified cardiac arrhythmia type Liborio Weller MD [address] [facility] [address] [place] [address] Phone: tel: fax: Referral ID Status Reason Start Date Expiration Date V isits Requested Visits Authorized [id number] Closed Specialty Services Required 09/23/2024 03/25/2026 1 1 Encounter Details Date Type Department Care Team ([facility] st Contact Info) Description 09/23/2024 10:00 AM EDT Office Visit Medical Office Building Obstetrics and Gynecology [address] [facility], [address] [place] [address] Liborio Weller MD [address] [facility] [address] [place] [address] Supervision of high risk , [...] more drinks on one occasion? Never 09/23/2024 Chancellor Depression Scale Answer Date Recorded Chancellor Depression Scale Total 0 09/23/2024 The thought [...] last week on 09/19. She presented to [facility] for chest pain and [...] 09/25 and has otherwise never seen a line mechanic. She has never seen a store team leader. She also reports during this admission she [...] None N JAGDISH Complications: Potassium (K) deficiency Chancellor Depression Scale Total: 0 Gynecology History No [...] has a past surgical history that includes [place] tooth extraction (N/A); section, low transverse (N/A); [...] prescription(s): ferosul, potassium chloride cr, prenat mv-min w/ry-rqrvjd-mon, and thiamine. Allergies Allergies[1] Review of Systems [...] tachycardia and arrhythmia during admission to [facility] on 09/19 HR to 170s-180s with standing, [...] other day Has never been evaluated by line mechanic for salt wasting nephropathy PLAN Has nephrology [...] the patient, and documenting this visit. (Est [id number]) Brandee Pringle MD Obstetrics & Gynecology, PGY-2 [...] Encounter [facility] Labor and Delivery [address] [place] [address] 11/21/2024 11:15 AM EDT Visit Medical Office Building Obstetrics and Gynecology [address] [facility], [address] [place] [address] Nneka Gipson MD [address] [place] [address] 12/25/2024 1:00 PM EST Office Visit [facility] Nephrology, Bone & Mineral Metabolism [address] [facility], [address] [place] [address] Scheduled Referrals Name Type Priority [...] Ketones, Urine 40(A) Negative mg/dL POCT Specific [place], Urine 1.015 POCT Blood, Urine Negative Negative POCT pH, Urine >=9.0(A) 5.0 to 8.0 POCT Protein, Urine 100(A) Negative mg/dL POCT Urobilinogen, Urine 0.2 0.2, 1 E.U./dL POCT Nitrite, Urine Negative Negative POCT Leukocyte Esterase, Urine Negative Negative Test Strip Lot Number [id number] Test Strip Lot Expiration 07/2025 Urine Urine [...] documented as of this encounter Care Teams Hot Mix Operator Relationship Specialty Start Date End Date Norma Friedman APRN [address] [place] [address] PCP - General 09/23/24 documented as of this encounter
--- OUTSIDE RECORDS SUMMARY | 2024-09-25 14:20 | XMS_ITS | Encounter Summary ---
Author Organization Healthcare Address [address] [place] [address] Care Team Providers Care Bit Welder Name Role Phone Norma Friedman JOLENE Primary Care Provider [phone] Reason for Referral * Consultation (Routine) - Authorized Specialty Diagnoses / Procedures Referred By Tarik pedersen Referred To Contact Diagnoses Hypokalemia Bill Patrick MD [address] [place] [phone] Phone: tel: fax: Referral ID Status Reason Start Date Expiration Date V isits Requested Visits Authorized [id number] Authorized 09/25/2024 03/27/2026 1 1 * Imaging (Routine) - Authorized Specialty Diagnoses / Procedures Referred By Tarik pedersen Referred To Contact Radiology Diagnoses Hypokalemia Procedures US Renal Complete Bill Patrick MD [address] [place] [phone] Phone: tel: fax: Referral ID Status Reason Start Date Expiration Date V isits Requested Visits Authorized [id number] Authorized 09/25/2024 03/27/2026 1 1 Reason for Visit * Reason Comments Consult * Consultation (Routine) - Closed Specialty Diagnoses / Procedures Referred By Tarik pedersen Referred To Contact Nephrology Diagnoses Hypokalemia Liborio Weller MD [address] [address] Phone: tel: fax: [facility] Nephrology, Bone & Mineral Metabolism [address] , [address] [place] [address] Phone: tel: fax: Referral ID Status Reason Start Date Expiration Date V isits Requested Visits Authorized [id number] Closed Specialty Services Required 09/14/2024 03/16/2026 1 1 Encounter Details Date Type Department Care Team (Late st Contact Info) Description 09/25/2024 2:20 PM EDT Office Visit [facility] Nephrology, Bone & Mineral Metabolism [address] , [address] [place] [address] Bill Patrick MD [address] [place] [address] Hypokalemia (Primary Dx) Social History Tobacco Use Types [...] more drinks on one occasion? Never 09/23/2024 [place] Depression Scale Answer Date Recorded [place] Depression Scale Total 0 09/23/2024 The thought [...] Sign Reading Time Taken Comments Blood Pressure 107/73 09/25/2024 2:56 PM EDT Pulse 89 09/25/2024 2:56 PM EDT Temperature 37 C (98.6 F) 09/25/2024 2:56 PM EDT Respiratory Rate - - Oxygen Saturation 97% 09/25/2024 2:56 PM EDT Inhaled Oxygen Concentration - - Weight 71.6 kg (157 lb 13.6 oz) 09/25/2024 2:56 PM EDT Height 162.6 cm (5' 4 ) 09/25/2024 2:56 PM EDT Body Mass Index 27.09 09/25/2024 2:56 PM EDT documented in this encounter Miscellaneous Notes * Patient Instructions - Bill Patrick MD - 09/25/2024 2:20 PM EDT Blood and urine testing tomorrow Continue taking your potassium supplement and increased potassium in diet Follow up with us after 3 months * Progress Notes - Lyudmila Heller MD - 09/25/2024 2:20 PM EDT Nephrology Outpatient Consult Note Reason for referral: Evaluation for hypokalemia and proteinuria in Referring Provider: Liborio Weller MD HPI: Whitney Presley is a pleasant 34 y.o. female with PMH of: - Hx of proteinuria in - Severe hypokalemia - Hypomagnesemia Family History of CKD/ESRD: No History of Kidney Stones: No NSAID use: No LUTS: No In prior 5 years ago patient required potassium transfusions multiple times per week beginning around 33 weeks of for hypokalemia. Symptoms improved after delivery at 37 weeks andshe did not see a Rn Psychiatric at that time. Also notes she has had issues with potassium in every but never as severe as now. Symptoms fully resolved after each . Initially was not having issues this , however, she has now been requiring 160meq of potassium supplementation every other day since around 27 weeks . She is currently 30w3d with an DUSTY of 12/01/24. Denies hematuria, dysuria, abd pain, SOA, CP. I have personally reviewed records from referring provider and other consultants, summarized above. REVIEW OF SYSTEMS Pertinent positives and negatives are mentioned in HPI Past Medical History[1] Surgical History[2] Family History[3] Social History Tobacco Use Smoking status: Never Passive exposure: Never Smokeless tobacco: Never Substance Use Topics Alcohol use: Never Medications Current Medications[4] Allergies[5] PHYSICAL EXAMINATION Visit Vitals BP 107/73 (BP Location: Right arm, Patient Position: Sitting, BP Cuff Size: Adult) Pulse 89 Temp 37 ??C (98.6 ??F) (Oral) Ht 1.626 m (5' 4 ) Wt 71.6 kg (157 lb 13.6 oz) SpO2 97% BMI 27.09 kg/m?? OB Status Smoking Status Never BSA 1.8 m?? GENERAL: well-developed, well-nourished, in no apparent distress. EYES: anicteric sclera, no injection, no discharge. RESP: Normal resp effort, on room air. CV: Warm and well perfused GI: abdomen. MSK/Ext: no edema. NEUROLOGIC: grossly intact. No focal deficits. Mental status alert, awake and oriented. PSYCH: appropriate mood and affect. Cooperative SKIN: no rash. No ulceration. No jaundice LAB AND IMAGING RESULTS Lab Results Component Value Date CREATININE 0.55 (L) 08/29/2024 CREATININE 0.51 (L) 08/20/2024 EGFR 124.3 08/29/2024 EGFR 126.6 08/20/2024 BUN 6 08/29/2024 BUN 2.3 (L) 08/20/2024 NA 136 08/29/2024 NA 139 08/20/2024 K 2.8 (L) 08/29/2024 K 3.5 08/20/2024 CL 98 08/29/2024 CL 109 (H) 08/20/2024 Lab Results Component Value Date ALBUMIN 3.7 08/29/2024 CALCIUM 8.7 08/29/2024 Lab Results Component Value Date WBC 9.26 08/29/2024 HGB 10.5 (L) 08/29/2024 HCT 31.2 (L) 08/29/2024 MCV 87.9 08/29/2024 PLT 242 08/29/2024 No results found for: CREATU , URINEPRO , UTPCR , ALBCREA No lab exists for component: ALB Renal Panel: Lab Results Component Value Date NA 136 08/29/2024 K 2.8 (L) 08/29/2024 CL 98 08/29/2024 BUN 6 08/29/2024 CREATININE 0.55 (L) 08/29/2024 EGFR 124.3 08/29/2024 CALCIUM 8.7 08/29/2024 MBD: Lab Results Component Value Date CALCIUM 8.7 08/29/2024 CBC: Lab Results Component Value Date WBC 9.26 08/29/2024 RBC 3.55 (L) 08/29/2024 HGB 10.5 (L) 08/29/2024 HCT 31.2 (L) 08/29/2024 PLT 242 08/29/2024 MCV 87.9 08/29/2024 Iron studies: No results found for: TIBC Urinalysis: No results found for: URBC , WBCU , PROTUR No results found for: URINEPRO , CREATU , UTPCR , ALBCREA I have independently reviewed and interpreted the test results and discussed with patient. # I personally spent a total of 61 minutes on this encounter. This time includes face to face with patient, reviewing records and previous notes, counseling the patient about hypokalemia, hypomagnesemia, discussion of the lab results, ordering tests, coordination of care and documenting the findings in the note. ASSESSMENT/PLAN Whitney Presley is a pleasant 34 y.o. female who is here for evaluation of hypokalemia. #Severe hypokalemia with concern for Distal (Type 1) RTA vs incomplete distal RTA - Recent UA with pH >9 - Consistently requiring significant potassium transfusions (160meq every other day) - Unfortunately, treatment options remain limited due to current and at this time can really only proceed with supportive care and management of potassium levels as already being done with primary OB #Hypomagnesemia # Plan: - Will obtain renal US given noted right-sided hydronephrosis on outside imaging - Recommend continued repletion of potassium with IV infusions every other day and current PO potassium - Unfortunately with limited options at this time if this is an RTA other than continued repletion but will plan to re-evaluate after delivery if symptoms persist RTC in 3 months with ordered tests below to be done before next visit Lyudmila Heller MD Orders Placed This Encounter Procedures US Renal Complete Urinalysis with reflex microscopic (Culture NOT Included) Chloride, urine, random Sodium, urine, random Osmolality, urine Protein, Random, Urine with Creatinine Albumin-creatinine ratio, urine, random Osmolality Potassium, urine, random Renal function panel SSA 52 and 60 (Ro) (YARA) Antibodies, IgG SSB (LA) (YARA) ANTIBODY, IGG Rheumatoid factor, plasma Antinuclear Antibody (JEFFERY), HEp-2, IgG [1] Past Medical History: Diagnosis Date Maternal care for unspecified type scar from previous delivery Uterine scar from previous delivery complicating Personal history of other diseases of the digestive system H/O gastroesophageal reflux (GERD) Personal history of other diseases of the female genital tract History of abnormal cervical Pap smear Personal history of other diseases of the female genital tract History of amenorrhea Personal history of other infectious and parasitic diseases History of chlamydia Personal history of other medical treatment History of blood transfusion Personal history of other medical treatment Transfusion history Personal history of other mental and behavioral disorders History of depression related conditions, unspecified, unspecified trimester Abnormal Spotting complicating , unspecified trimester Spotting in early [2] Past Surgical History: Procedure Laterality Date SECTION, LOW TRANSVERSE N/A section from [facility] DILATION AND CURETTAGE OF UTERUS N/A Dilation and curettage from [facility] WISDOM TOOTH EXTRACTION N/A Oral Surgery Tooth Extraction [place] Tooth from [facility] [3] Family History Problem Relation Name Age of Onset Diabetes Mother Diabetes Father Diabetes Paternal Grandmother Conversions - Other Father first degree relative with congenital heart disease Hypertension Mother Hypertension Father Hypertension Other Obesity Mother Obesity Father Obesity Sister Obesity Other Thyroid disease Mother Thyroid disease Father Thyroid disease Sister Hyperlipidemia Mother Hyperlipidemia Father Hyperlipidemia Other Conversions - Other Other Known health problems: none [4] Current Outpatient Medications Medication Sig Dispense Refill FeroSul 325 (65 Fe) MG tablet Take 1 tablet by mouth daily. metoprolol succinate XL (Toprol XL) 25 MG 24 hr tablet Take 0.5 tablets by mouth 2 times a day. Do not crush or chew. 30 tablet 1 omeprazole (PriLOSEC) [address] capsule Take 1 capsule by mouth 1 time each day. ondansetron ODT (Zofran-ODT) 4 MG disintegrating tablet DISSOLVE 1 TABLET IN MOUTH EVERY 8 HOURS ASNEEDED FOR NAUSEA AND VOMITING FOR 4 DAYS pantoprazole (Protonix) 40 MG EC tablet potassium chloride (Klor-Con) 20 MEQ packet Take twice a day for 3 days each week. Weekly labs potassium chloride CR 10 MEQ PO ER tablet Take 1 tablet by mouth 2 times a day. (Patient taking differently: Take 1 tablet by mouth 3 times a day.) Prenat MV-Min w/Fd-Ziirej-BMK ( COMPLETE PO) thiamine (Vitamin B-1) 100 MG tablet Take 1 tablet by mouth 1 time each day. No current facility-administered medications for this visit. [5] Allergies Allergen Reactions Bismuth Subsalicylate Other - please document in the comment field, Unknown - Patient states they do not know rxn details and Swelling na Tobacco Other - please document in the comment field and Shortness of breath SOB when exposed to smoke, contact dermatitis with skin contact Peanuts [Peanut Allergen Powder-Dnfp] Hives Cosigned by Bill Patrick MD at 10/05/2024 8:53 PM EDT Associated attestation - Bill Patrick MD - 10/05/2024 8:53 PM EDT I saw and evaluated the patient. I discussed the case with the resident/fellow and agree with the findings and plan as documented. I personally participated in the management of the patient. Severe hypokalemia/hypomagnesemia in the setting of . This has occurred with her prior pregnancies but not to this severity. This is sometimes associated with an underlying distal RTA (appears to be incomplete as no acidosis on labs). We discussed strategies to maximize oral potassium intake in addition to taking IV infusions she is getting regularly to counteract losses. I suspect this will improve after delivery. Urine testing to confirm losses and estimate replacement needs. Check for Sjogren's syndrome documented in this encounter Plan of Treatment Upcoming Encounters Date Type Department Care Team (Late st Contact Info) Description 10/31/2024 Hospital Encounter [facility] Labor and Delivery [address] [place] [address] 11/21/2024 11:15 AM EDT Visit Medical Office Building Obstetrics and Gynecology [address], [address] [place] [address] Nneka Gipson MD [address] [place] [phone] 12/25/2024 1:00 PM EST Office Visit [facility] Nephrology, Bone & Mineral Metabolism [address] , [address] [place] [address] Scheduled Orders Name Type Priority Associated Diagnoses Orde r Schedule Urinalysis with reflex microscopic (Culture NOT Included) Lab Routine Hypokalemia Expected: 09/25/2024 (Approximate), Expires: 03/28/2026 Renal Complete Imaging Routine Hypokalemia Expected: 09/25/2024 (Approximate), Expires: 03/29/2026 Scheduled Referrals Name Type Priority Associated Diagnoses Order Schedule Follow Up Nephrology Outpatient Referral Routine Hypokalemia Expected: 12/26/2024 (Approximate), Expires: 10/26/2025 documented as of this encounter Results * Chloride, urine, random (09/26/2024 10:07 AM EDT) Chloride, Urine 25 mmol/L 2:[address] [facility] Urine Urine specimen obtained by clean catch procedure / Unknown Non-blood Collection / Unknown 09/26/2024 10:07 AM EDT 09/26/2024 10:07 AM EDT us Bill Patrick MD LAB URINE ORDERABLES Final Resul t [facility] [address] [place] [address] * Protein, Random, Urine with Creatinine (09/26/2024 10:03 AM EDT) Protein, Urine 26 mg/dL 09/26/2024 12:08 PM EDT [facility] Creatinine, Urine 199 mg/dL 09/26/2024 12:08 PM EDT [facility] Protein/Creati nine Ratio 0.1 mg/mg Creat 09/26/2024 12:08 PM EDT [facility] Urine Urine specimen obtained by clean catch procedure / Unknown Non-blood Collection / Unknown 09/26/2024 10:03 AM EDT 09/26/2024 10:04 AM EDT us Bill Patrick MD LAB URINE ORDERABLES Final Resul t Performing Organization Address City/[facility]/ZIP Co de Phone Number [facility] [address] [place] [address] * Potassium, urine, random (09/26/2024 10:02 AM EDT) Potassium, Urine 43 mmol/L 09/26/2024 11:55 AM EDT [facility] Urine Urine specimen obtained by clean catch procedure / Unknown Non-blood Collection / Unknown 09/26/2024 10:02 AM EDT 09/26/2024 10:02 AM EDT us Bill Patrick MD LAB URINE ORDERABLES Final Resul t Performing Organization Address City/[facility] de Phone Number [facility] [address] [place] [address] * Osmolality, urine (09/26/2024 10:02 AM EDT) Osmolality, Urine 404 50 - 1,200 mOsm/kg 09/26/2024 1:[address] [facility] Urine Urine specimen obtained by clean catch procedure / Unknown Non-blood Collection / Unknown 09/26/2024 10:02 AM EDT 09/26/2024 10:02 AM EDT us Bill Patrick MD LAB URINE ORDERABLES Final Resul t Performing Organization Address City/[facility]/ZIP Co de Phone Number [facility] [address] [place] [address] * Sodium, urine, random (09/26/2024 10:02 AM EDT) Sodium, Urine 110 mmol/L 09/26/2024 11:55 AM EDT [facility] Urine Urine specimen obtained by clean catch procedure / Unknown Non-blood Collection / Unknown 09/26/2024 10:02 AM EDT 09/26/2024 10:02 AM EDT Bill Patrick MD LAB URINE ORDERABLES Final Resul t [facility] [address] [place] [address] * Antinuclear Antibody (JEFFERY), HEp-2, IgG (09/26/2024 9:32 AM EDT) JEFFERY INTERPRETIVE COMMENT See Note 09/28/2024 5:13 PM EDT [facility] ([employer]) Anti Nuc Ab Screen <1:80 <1:80 09/28/2024 5:13 PM EDT [facility] ([employer]) Blood Venous blood specimen / Unknown Venipuncture / Unknown 09/26/2024 9:32 AM EDT 09/26/2024 9:32 AM EDT Narrative [facility] ([employer]) - 09/28/2024 5:13 PM EDT INTERPRETIVE INFORMATION: JEFFERY Interpretive Comment Presence of antinuclear antibodies (JEFFERY) is a hallmark feature of systemic autoimmune rheumatic diseases (SARD). However, JEFFERY lacks diagnostic specificity and is associated with a variety of diseases (cancers, autoimmune, infectious, and inflammatory conditions) and may also occur in healthy individuals in varying prevalence. The lack of diagnostic specificity requires confirmation of positive JEFFERY by more specific serologic tests. JEFFERY (nuclear reactivity) positive patterns reported include centromere, homogeneous, nuclear dots, nucleolar, or speckled. JEFFERY (cytoplasmic reactivity) positive patterns reported include reticular/AMA, discrete/GW body-like, polar/golgi-like, cytoplasmic speckled or rods and rings. All positive patterns are reported to endpoint titers (1:2560). Reported patterns may help guide differential diagnosis, although they may not be specific for individual antibodies or diseases. Mitotic staining patterns not reported. Negative results do not necessarily rule out SARD. Clinical Interpretation: Antinuclear antibodies by IFA negative for homogeneous, speckled, nucleolar, centromere, and nuclear dots patterns. Cytoplasmic antibodies by IFA negative for reticular/AMA, discrete/GW body-like, polar/golgi-like, rods and rings, and cytoplasmic speckled patterns. Performed By: [facility] [address] [place] [id number] [employer] Adviser: Brandon Bell MD, PhD CLIA Number: [id number] Bill Patrick MD LAB BLOOD ORDERABLES Final Resul t [facility]) [address] [place] [address] * Rheumatoid factor, plasma (09/26/2024 9:32 AM EDT) Rheumatoid Factor, Plasma <10 <14 IU/mL 09/26/2024 1:49 PM EDT [facility] Blood Venous blood specimen / Unknown Venipuncture / Unknown 09/26/2024 9:32 AM EDT 09/26/2024 9:32 AM EDT Bill Patrick MD LAB BLOOD ORDERABLES Final Resul t [facility] [address] [place] [address] * SSB (LA) (YARA) ANTIBODY, IGG (09/26/2024 9:32 AM EDT) SSB (LA) (YARA) Antibody, IgG 0 0 - 40 AU/mL 09/28/2024 5:47 PM EDT [facility]) Serum Venous blood specimen / Unknown 09/26/2024 9:32 AM EDT 09/26/2024 9:32 AM EDT Narrative [facility]) - 09/28/2024 5:47 PM EDT INTERPRETIVE INFORMATION: SSB (La) (YARA) Ab, IgG 29 AU/mL or Less ............. Negative 30 - 40 AU/mL ................ Equivocal 41 AU/mL or Greater .......... Positive SSB (La) antibody is seen in 50-60% of Sjogren syndrome cases and is specific if it is the only YARA antibody present. 15-25% of patients with systemic lupus erythematosus (SLE) and 5-10% of patients with progressive systemic sclerosis (PSS) also have this antibody. Performed By: [facility] [address] [place] [address] [employer] Adviser: Brandon Bell MD, PhD CLIA Number: [id number] Bill Patrick MD LAB BLOOD ORDERABLES Final Resul t [facility] ([employer]) [address] [place] [address] * SSA 52 and 60 (Ro) (YARA) Antibodies, IgG (09/26/2024 9:32 AM EDT) SSA-52 (RO52) (YARA) Antibody, IgG 2 0 - 40 AU/mL 09/28/2024 5:47 PM EDT [facility] ([employer]) SSA-60 (RO60) (YARA) Antibody, IgG 0 0 - 40 AU/mL 09/28/2024 5:47 PM EDT [facility] ([employer]) Serum 09/26/2024 9:32 AM EDT 09/26/2024 9:32 AM EDT Narrative [facility] ([employer]) - 09/28/2024 5:47 PM EDT INTERPRETIVE INFORMATION: SSA-52 (Ro52) (YARA) Antibody, IgG 29 AU/mL or Less ............. Negative 30 - 40 AU/mL ................ Equivocal 41 AU/mL or Greater .......... Positive SSA-52 (Ro52) and/or SSA-60 (Ro60) antibodies are associated with a diagnosis of Sjogren syndrome, systemic lupus erythematosus (SLE), and systemic sclerosis. SSA-52 antibody overlaps significantly with the major SSc-related antibodies. SSA-52 (Ro52) antibody occurs frequently in patients with inflammatory myopathies, often in the presence of interstitial lung disease. REFERENCE INTERVAL: SSA-60 (Ro60) (YARA) Antibody, IgG 29 AU/mL or Less ............. Negative 30 - 40 AU/mL ................ Equivocal 41 AU/mL or Greater .......... Positive Performed By: [facility] [address] [place] [address] Securities Adviser: Brandon Bell MD, PhD CLIA Number: [id number] Bill Patrick MD LAB REF LAB BLOOD AND FLUID ORD Final Result [facility]) [address] [place] [address] * (ABNORMAL) Renal function panel (09/26/2024 9:32 AM EDT) [facility] Glucose, Plasma 87 74 - 99 mg/dL 09/26/2024 12:24 PM EDT [facility] BUN, Plasma 5(L) 7 - 21 mg/dL 09/26/2024 12:24 PM EDT [facility] Creatinine, Plasma 0.72 0.60 - 1.10 mg/dL 09/26/2024 12:24 PM EDT [facility] BUN/Creatinine Ratio 7 09/26/2024 12:24 PM EDT [facility] Sodium, Plasma 135(L) 136 - 145 mmol/L 09/26/2024 12:24 PM EDT [facility] Potassium, Plasma 3.1(L) 3.6 - 4.9 mmol/L 09/26/2024 12:24 PM EDT [facility] Chloride, Plasma 95(L) 97 - 107 mmol/L 09/26/2024 12:24 PM EDT [facility] CO2, Plasma 26 22 - 29 mmol/L 09/26/2024 12:24 PM EDT [facility] Anion Gap 14 6 - 16 mmol/L 09/26/2024 12:24 PM EDT [facility] Total Calcium, Plasma 9.4 8.9 - 10.2 mg/dL 09/26/2024 12:24 PM EDT [facility] Phosphorus, Plasma 3.5 2.5 - 4.5 mg/dL 09/26/2024 12:24 PM EDT [facility] Albumin, Plasma 3.6 3.5 - 5.2 g/dL 09/26/2024 12:24 PM EDT [facility] eGFRcr 113.4 mL/min/1.7 3m*2 09/26/2024 12:24 PM EDT [facility] Comment:Reported eGFRcr in m L/min/1.73m2 is based the CKD-EPI 2020 equation that does not use a race coefficient. Blood Venous blood specimen / Unknown Venipuncture / Unknown 09/26/2024 9:32 AM EDT 09/26/2024 9:32 AM EDT us Bill Patrick MD LAB BLOOD ORDERABLES Final Resul t Performing Organization Address City/[facility] de Phone Number [facility] [address] [place] [address] * (ABNORMAL) Osmolality (09/26/2024 9:32 AM EDT) Osmolality, Serum 273(L) 275 - 295 mOsm/Kg 09/26/2024 2:[address] [facility] Blood Venous blood specimen / Unknown Venipuncture / Unknown 09/26/2024 9:32 AM EDT 09/26/2024 9:32 AM EDT us Bill Patrick MD LAB BLOOD ORDERABLES Final Resul t Performing Organization Address [facility] de Phone Number [facility] [address] [place] [address] documented in this encounter Visit Diagnoses Diagnosis Hypokalemia- Primary Hypopotassemia documented in this encounter Additional Health Concerns Assessment Noted Time A fall risk assessment has been complete d for the patient 09/25/2024 3:05 PM EDT A Body Mass Index follow-up plan has been documented for the patient 10/05/2024 8:54 PM EDT documented as of this encounter Care Teams Bit Welder Relationship Specialty Start Date End Date Norma Friedman APRN [address] [place] [address] PCP - General 09/23/24 documented as of this encounter
--- OUTSIDE RECORDS SUMMARY | 2024-09-26 08:00 | XMS_ITS | Encounter Summary ---
Author Organization [facility] Address [address] [place] [address] Care Team Providers Care Vp Digital Marketing Name Role Phone Norma Friedmna DISTRIBUTION SPEC Primary Care Provider +1- [phone] Lizz Trinh RN Unavailable Unavailable Reason for Referral * Consultation (Routine) - Closed Specialty Diagnoses / Procedures Referred By Tarik t Referred To Contact Diagnoses Palpitations Syncope and collapse Nneka Vasquez MD [address] [place] [phone] Phone: tel: fax: Referral ID Status Reason Start Date Expiration Date Visits Re quested Visits Authorized [id number] Closed 09/26/2024 03/28/2026 1 1 * Cardiac Stress Testing (Routine) - Closed Specialty Diagnoses / Procedures Referred By Contac t Referred To Contact Cardiology Diagnoses Palpitations Syncope and collapse Procedures Adult Patch Monitor - 7 Day Nneka Vasquez MD [address] [place] [phone] Phone: tel: fax: Referral ID Status Reason Start Date Expiration Date Visits Re quested Visits Authorized [id number] Closed 09/26/2024 03/28/2026 1 1 Reason for Visit * Consultation (Routine) - Closed Specialty Diagnoses / Procedures Referred By Contac t Referred To Contact Cardiology Diagnoses Supervision of high risk , antepartum Cardiac arrhythmia, unspecified cardiac arrhythmia type [place] Preciado MD [address] [address] Phone: tel: fax: Referral ID Status Reason Start Date Expiration Date V isits Requested Visits Authorized [id number] Closed Specialty Services Required 09/23/2024 03/25/2026 1 1 Encounter Details Date Type Department Care Team (Late st Contact Info) Description 09/26/2024 8:00 AM EDT Office Visit [facility] [place] [address] [facility] [facility], [address] [place] [address] Nneka Vasquez MD [address] [place] [address] Syncope and collapse (Primary Dx); [...] more drinks on one occasion? Never 09/23/2024 [place] Depression Scale Answer Date Recorded [place] Depression Scale Total 0 09/23/2024 The thought [...] Vasquez MD - 09/26/2024 8:00 AM EDT [place] [facility] ([facility]) Problem List #Hypomagnesium and Hypokalemia [...] home with no plans. 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 and [...] TOOTH EXTRACTION N/A Oral Surgery Tooth Extraction [place] [employer] from [employer] [3] Social History Socioeconomic History Marital status: Spouse name: Glenda Prseley Highest education level: Associate degree: academic program Tobacco Use Smoking status: Never Passive exposure: Never Smokeless tobacco: Never Vaping Use Vaping status: Never Used Substance and Sexual Activity Alcohol use: Never Drug use: Never Sexual activity: Yes Partners: Male Social History Narrative Caffeine use Marital Status: Social Drivers of Health Financial Resource Strain: Low Risk (05/28/2024) Received from [facility] Overall Financial Resource Strain (CARDIA) Difficulty of Paying Living Expenses: Not hard at all Food Insecurity: No Food Insecurity (05/28/2024) Received from [facility] Hunger Vital Sign Within the past 12 months, you worried that your food would run out before you got the money to buymore.: Never true Within the past 12 months, the food you bought just didn't last and you didn't have money to get more.: Never true Transportation Needs: No Transportation Needs (05/28/2024) Received from [facility] PRAPARE - Transportation In the past 12 months, has lack of transportation kept you from medical appointments or from getting medications?: No In the past 12 months, has lack of transportation kept you from meetings, work, or from getting things needed for daily living?: No Physical Activity: Sufficiently Active (05/28/2024) Received from [facility] Exercise Vital Sign On average, how many days per week do you engage in moderate to strenuous exercise (like a brisk walk)?: 5 days On average, how many minutes do you engage in exercise at this level?: 40 min Stress: Stress Concern Present (05/27/2024) Received from [facility] [place] [employer]ational Health - Occupational Stress Questionnaire Feeling of Stress : To some extent Social Connections: Not At Risk (05/28/2024) Received from [facility] Family and Community Support If for any reason you need help with day-to-day activities such as bathing, preparing meals, shopping, managing finances, etc., do you get the help you need?: I don't need any help How often do you feel lonely or isolated from those around you?: Sometimes Intimate Partner Violence: Not At Risk (08/19/2024) Received from [facility] Abuse Screen Feels Unsafe at Home or Work/School: no Feels Threatened by Someone: no Does Anyone Try to Keep You From Having Contact with Others or Doing Things Outside Your Home?: no Physical Signs of Abuse Present: no Housing Stability: Not At Risk (08/20/2024) Received from [facility] Housing Stability Current Living Arrangements: home Potentially [...] Upcoming Encounters Date Type Department Care Team ([facility] st Contact Info) Description 10/31/2024 Hospital Encounter [facility] Labor and Delivery [address] [place] [address] 11/21/2024 11:15 AM EDT Visit Medical Office Building Obstetrics and Gynecology [address] [facility] [facility], [address] [place] [phone] Nneka Gipson MD [address] [place] [address] 12/25/2024 1:00 PM EST Office Visit [facility] Nephrology, Bone & Mineral Metabolism [address] [facility] [facility], [address] [place] [phone] Scheduled Referrals Name Type Priority Associated Diagnoses [...] on Day 3 / 08:47:57 pm SVE(s): [place] was 3.46 %, [address] total SVE(s) SV Arrhythmia(s): 21 events, longest event 7 beats on Day 03:05:26 am, fastest event 111 bpm on Day 02:02:39 am PVC(s): [place] was 0.03 %, 189 total PVC(s), 1 [...] ECG Atrial Rate 84 BPM MUSE ECG [place] Interval 148 ms MUSE ECG QRSD Interval 74 ms MUSE ECG QT Interval 374 ms MUSE ECG QTC Interval 441 ms MUSE ECG P [place] 60 degrees MUSE ECG R [place] 36 degrees MUSE ECG T Wave [place] 55 degrees MUSE ECG Diagnosis Normal sinus rhythm with sinus arrhythmia MUSE ECG Diagnosis Normal ECG MUSE ECG Diagnosis MUSE ECG Diagnosis Confirmed by Abad South ([id number]) on 09/26/2024 12:13:59 PM MUSE ECG 09/26/2024 [...] documented as of this encounter Care Teams Vp Digital Marketing Relationship Specialty Start Date End Date Norma Friedman APRN [address] [place] [address] PCP - General 09/23/24 Lizz Trinh, RN [facility] Registered Nurse Cardiology 09/26/24 documented as of this encounter
--- OUTSIDE RECORDS SUMMARY | 2024-09-26 09:06 | XMS_ITS | Encounter Summary ---
Author Organization [facility] Address [address] [place] [address] Care Team Providers Care Fur Operator Name Role Phone Elder Kadedev Coy TRACTOR MECHANIC Primary Care Provider +1- [phone] Lizz Trinh RN Unavailable Unavailable Reason for Referral * Cardiac Stress Testing (Routine) - Closed Specialty Diagnoses / Procedures Referred By Tarik pedersen Referred To Contact Cardiology Diagnoses Palpitations Syncope and collapse Procedures Adult Patch Monitor - 7 Day Nneka Vasquez MD [address] [place] [address] Phone: tel: fax: Referral ID Status Reason Start Date Expiration Date Visits Re quested Visits Authorized [id number] Closed 09/26/2024 03/28/2026 1 1 Reason for Visit * Cardiac Stress Testing (Routine) - Closed Specialty Diagnoses / Procedures Referred By Tarik pedersen Referred To Contact Cardiology Diagnoses Palpitations Syncope and collapse Procedures Adult Patch Monitor - 7 Day Nneka Vasquez MD [address] [place] [address] Phone: tel: fax: Referral ID Status Reason Start Date Expiration Date Visits Re quested Visits Authorized [id number] Closed 09/26/2024 03/28/2026 1 1 Encounter Details Date Type Department Care Team (Latest Contact Info) Description 09/26/2024 9:06 AM EDT - 09/26/2024 11:59 PM EDT Hospital Encounter Medical Office Building Cardiac Diagnostic Testing Medical Office Building Echo Lab [address] [facility], [address] [place] [address] Palpitations; Syncope and collapse Discharge [...] more drinks on one occasion? Never 09/23/2024 [place] Depression Scale Answer Date Recorded [place] Depression Scale Total 0 09/23/2024 The thought [...] tablet by mouth daily. 09/12/2024 Prenat MV-Min w/In-Yocoot-RMD ( COMPLETE PO) 12/25/2018 thiamine (Vitamin B-1) [...] Upcoming Encounters Date Type Department Care Team ([facility] st Contact Info) Description 10/31/2024 Hospital Encounter [facility] H Labor and Delivery [address] [place] [address] 11/21/2024 11:15 AM EDT Visit Medical Office Building Obstetrics and Gynecology [address] [facility], [address] [place] [address] Nneka Gipson MD [address] [place] [address] 12/25/2024 1:00 PM EST Office Visit [facility] Nephrology, Bone & Mineral Metabolism [address] [facility], [address] [place] [address] documented as of this encounter [...] on Day 3 / 08:47:57 pm SVE(s): [place] was 3.46 %, [address] total SVE(s) SV Arrhythmia(s): 21 events, longest event 7 beats on Day :05:26 am, fastest event 111 bpm on Day :02:39 am PVC(s): [place] was 0.03 %, 189 total PVC(s), 1 [...] documented as of this encounter Care Teams Fur Operator Relationship Specialty Start Date End Date Norma Friedman APRN [address] [place] [address] PCP - General 09/23/24 Lizz Trinh, RN [facility] Registered Nurse Cardiology 09/26/24 documented as of this encounter
--- OUTSIDE RECORDS SUMMARY | 2024-10-17 09:15 | XMS_ITS | Encounter Summary ---
Author Organization Healthcare Address [address] [place] [address] Care Team Providers Care Stone Rougher Name Role Phone Elder Kadedev Coy UTILITY LOCATE TECHNICIAN Primary Care Provider +1- [phone] Lizz Trinh RN Unavailable Unavailable Reason for Visit * Auth/Cert (Routine) Specialty Diagnoses / Procedures Referred By Tarik pedersen Referred To Contact Diagnoses Hypokalemia Electrolyte abnormality Hilton Montelongo MD [address] [facility] [address] [place] [address] Phone: tel: fax: [facility] [address] [place] [address] Phone: tel: fax: Referral ID Status Reason Start Date Expiration Date Visits Re quested Visits Authorized [id number] 1 1 Encounter Details Date Type Department Care Team (Latest Contact Info) Description 10/17/2024 9:15 AM EDT Routine Medical Office Building Obstetrics and Gynecology [address] [facility], [address] [place] [address] Nneka Gipson MD [address] [place] [address] NST (non-stress test) nonreactive (Primary [...] more drinks on one occasion? Never 09/23/2024 [place] Depression Scale Answer Date Recorded [place] Depression Scale Total 0 09/23/2024 The [...] Brandan with primary OB Dr Marin in [facility] O+/RI/HCV-/HIV- Needs HBV and syphilis G/C [...] Had tachycardia and arrhythmia during admission to [facility] on 09/19 HR to 170s-180s with [...] Kaitlyn Richter MD PGY-2, Obstetrics and Gynecology [facility] Cosigned by Nneka Gipson MD at 10/17/2024 12:41 PM EDT Associated attestation - Nneka Gipson MD - 10/17/2024 12:41 PM EDT I saw and evaluated the patient with the resident/fellow. I discussed the case with the resident/fellow and agree with the findings and plan as documented. Patient lives in [facility] about 1.5h away, has primary OB [...] Encounter [facility] H Labor and Delivery [address] [place] [address] 11/21/2024 11:15 AM EDT Visit Medical Office Building Obstetrics and Gynecology [address] [facility], [address] [place] [address] Nneka Gipson MD [address] [place] [address] 12/25/2024 1:00 PM EST Office Visit [facility] [place] Nephrology, Bone & Mineral Metabolism [address] [facility], [address] [place] [address] documented as of this encounter Procedures Procedure [...] Ketones, Urine Negative Negative mg/dL POCT Specific [place], Urine 1.015 POCT Blood, Urine Negative Negative POCT pH, Urine 8.5(A) 5.0 to 8.0 POCT Protein, Urine 30(A) Negative mg/dL POCT Urobilinogen, Urine 0.2 0.2, 1 E.U./dL POCT Nitrite, Urine Negative Negative POCT Leukocyte Esterase, Urine Negative Negative Test Strip Lot Number [id number] Test Strip Lot Expiration 07/2025 Urine Urine [...] documented as of this encounter Care Teams Stone Rougher Relationship Specialty Start Date End Date Norma Friedman APRN [address] [place] [address] PCP - General 09/23/24 Lizz Trinh, RN [facility] Registered Nurse Cardiology 09/26/24 documented as of this encounter
--- OUTSIDE RECORDS SUMMARY | 2024-10-17 09:30 | XMS_ITS | Encounter Summary ---
Author Organization Healthcare Address [address] [place] [address] Care Team Providers Care Gunstock Spray Unit Adjuster Name Role Phone Norma Friedman TRUCK JUMPER Primary Care Provider +1- [phone] Lizz Trinh RN Unavailable Unavailable Reason for Visit * Reason Comments NST/BPP Visit FGR * Auth/Cert (Routine) Specialty Diagnoses / Procedures Referred By Contac t Referred To Contact Diagnoses Hypokalemia Electrolyte abnormality Hilton Montelongo MD [address] [facility] [address] [place] [address] Phone: tel: fax: [facility] [address] [place] [address] Phone: tel: fax: Referral ID Status Reason Start Date Expiration Date Visits Re quested Visits Authorized [id number] 1 1 Encounter Details Date Type Department Care Team ([facility] st Contact Info) Description 10/17/2024 9:30 AM EDT NST Medical Office Building Obstetrics and Gynecology [address] [facility], [address] [place] [address] growth restriction antepartum (Primary Dx) [...] AND GYNECOLOGY for a nonstress test with [facility]. complicated by growth restriction. See [...] Encounter [facility] Labor and Delivery [address] [place] [address] 11/21/2024 11:15 AM EDT Visit Medical Office Building Obstetrics and Gynecology [address] [facility], [address] [place] [address] Nneka Gipson MD [address] [place] [address] 12/25/2024 1:00 PM EST Office Visit [facility] Nephrology, Bone & Mineral Metabolism [address] [facility], [address] [place] [address] documented as of this encounter Visit Diagnoses Diagnosis growth restriction antepartum- Primary documented in this encounter Additional Health Concerns Assessment Noted Time A fall risk assessment has been complete d for the patient 09/26/2024 8:15 AM EDT A Body Mass Index follow-up plan has been documented for the patient 10/20/2024 9:52 AM EDT documented as of this encounter Care Teams Gunstock Spray Unit Adjuster Relationship Specialty Start Date End Date Norma Friedman APRN [address] [place] [address] PCP - General 09/23/24 Lizz Trinh, RN [facility] Registered Nurse Cardiology 09/26/24 documented as of this encounter
--- OUTSIDE RECORDS SUMMARY | 2024-10-17 10:30 | XMS_ITS | Encounter Summary ---
Author Organization Healthcare Address [address] [place] [address] Care Team Providers Care Want Ad Clerk Name Role Phone Elder Kadedev Coy CARTON FORMING MACHINE TENDER Primary Care Provider +1- [phone] Lizz Trinh RN Unavailable Unavailable Reason for Visit * Auth/Cert (Routine) Specialty Diagnoses / Procedures Referred By Tarik pedersen Referred To Contact Diagnoses Hypokalemia Electrolyte abnormality Hilton Montelongo MD [address] [facility] [address] [place] [address] Phone: tel: fax: [facility] Labor and Delivery [address] [place] [address] Phone: tel: fax: Referral ID Status Reason Start Date Expiration Date Visits Re quested Visits Authorized [id number] 1 1 Encounter Details Date Type Department Care Team (Latest Contact Info) Description 10/17/2024 10:30 AM EDT - 10/17/2024 3:46 PM EDT Hospital Encounter Medical Office Building Obstetrics and Gynecology [address] [facility], [address] [place] [address] NST (non-stress test) nonreactive Discharge [...] more drinks on one occasion? Never 09/23/2024 [place] Depression Scale Answer Date Recorded [place] Depression Scale Total 0 09/23/2024 The thought [...] not crush, chew, or split. Prenat MV-Min w/Kw-Igcqah-DQL ( COMPLETE PO) 12/25/2018 promethazine (Phenergan) 12.5 [...] Upcoming Encounters Date Type Department Care Team ([facility] st Contact Info) Description 10/31/2024 Hospital Encounter [facility] Labor and Delivery [address] [place] [address] 11/21/2024 11:15 AM EDT Visit Medical Office Building Obstetrics and Gynecology [address] [facility], [address] [place] [address] Nneka Gipson MD [address] [place] [address] 12/25/2024 1:00 PM EST Office Visit [facility] Nephrology, Bone & Mineral Metabolism [address], [address] [place] [address] documented as of this encounter [...] Please navigate to the Imaging tab in [employer] for review. This message has been generated by the interface. Narrative Procedure Note Melonie Wheeler MD - 10/17/2024 IMPRESSION: The OB Ultrasound you requested has been resulted. Please navigate to theImaging tab in [employer] for review. This message has been generated [...] documented as of this encounter Care Teams Want Ad Clerk Relationship Specialty Start Date End Date Norma Friedman APRN [address] [place] [address] PCP - General 09/23/24 Lizz Trinh, RN [facility] Registered Nurse Cardiology 09/26/24 documented as of this encounter
--- OUTSIDE RECORDS SUMMARY | 2024-10-17 15:47 | XMS_ITS | Encounter Summary ---
Author Organization Healthcare Address [address] [place] [address] Care Team Providers Care [employer] Name Role Phone Valentino burgerseven Coy GEOLOGICAL MANAGER Primary Care Provider [phone] Lizz Trinh RN Unavailable Unavailable Reason for Visit * Auth/Cert (Routine) Specialty Diagnoses / Procedures Referred By Tarik pedersen Referred To Contact Diagnoses Hypokalemia Electrolyte abnormality Hilton Montelongo MD [address] [address] Phone: tel: fax: [facility] [address] [place] [address] Phone: tel: fax: Referral ID Status Reason Start Date Expiration Date Visits Re quested Visits Authorized [id number] 1 1 Encounter Details Date Type Department Care Team (Latest Contact Info) Description 10/17/2024 3:47 PM EDT - 10/20/2024 10:16 AM EDT Hospital Encounter [facility] [address] [place] [address] Hilton Montelongo MD [address] [address] Discharge Disposition: Home or Self [...] more drinks on one occasion? Never 09/23/2024 [place] Depression Scale Answer Date Recorded [place] Depression Scale Total 0 09/23/2024 The thought [...] not crush, chew, or split. Prenat MV-Min w/Kv-Offmui-CIZ ( COMPLETE PO) 12/25/2018 promethazine (Phenergan) 12.5 [...] Herrmann MD PhD Division of Hospital Medicine [phone] [1] azithromycin, 500 mg, Intravenous, Once in [...] famotidine OR famotidine PF, hydrOXYzinepamoate, magic mouthwash diphen/lido/czsh-jgq-cldoze, melatonin, ondansetron ODT OR ondansetronOR ondansetron, prochlorperazine, promethazine, Insert peripheral IV AND Saline lock IV AN D sodium chloride, terbutaline * Sybil Real RN - 10/20/2024 9:51 AM EDT Images from the original note were not included. [id number] Hypokalemia Hypokalemia means a low level of [...] consciousness Last Reviewed Date: 2022 00:00:00 ?? [id number] [employer]. All rights reserved. This information is not [...] a nurse. [facility] (Triage) [facility] [address] [place] [address] [facility] Obstetric[facility] & Gyne[facility] Medical Office Building [address], [address] [place] [address] [facility] [address] [place] [address] Family Practice [address], Third Floor [address] [place] [address] [facility] [address] [place] [address] [facility] Obstetrics & Gynecology [place] [address] [place] [address] [facility] Obstetrics & Gynecology [place] [address] [place] [address] * Discharge Summary - Shazia Booker MD - 10/20/2024 9:50 AM EDT Images from the original note were not included. Hospitalization Admit Date/Time: 10/17/2024 3:47 PM Admitting Attending: Hilton Montelongo Discharge Date: 10/20/2024 Discharge Attending Physician: Laury Cruz MD PCP name and Address: Norma Friedman, GEOLOGICAL MANAGER [address] [facility] / [place] [id number] Referring provider name and address: No referring provider defined for this encounter. Chief Concern, Brief History of Present Illness, and Hospital Course Whitney Prseley is a 34 y.o. at 33w4d (12/01/2024) [...] Your Medications These medications were sent to [facility] [place], [place] - [address] [facility] [id number] cyclobenzaprine 5 MG tablet hydrOXYzine pamoate 25 [...] [id number] MOB 12/25/2024 1:00 PM ([place])ARIEL FELLOW [facility] [address] PAC Test Results Pending At Discharge Pending [...] status upon discharge. Will schedule delivery at [facility] visit this week. Given the persistent and worsening electrolyteabnormalities resulting in cardiac arrhythmias despite aggressive IV and PO supplementation, it would be reasonable to move toward delivery sooner then previously planned. * Sybil Real RN - 10/20/2024 9:50 AM EDT Images from the original note were not included. [id number] About Arrhythmias Your heart beats about 60 [...] the doctor as soon as youcan to spanish moss picker the device. You may have other [...] them. Last Reviewed Date: 2023 00:00:00 ?? [phone] [employer]. All rights reserved. This information is not [...] use. Last Reviewed Date: 2021 00:00:00 ?? [id number] [employer]. All rights reserved. This information is not [...] care, please call OB resident workroom at #[phone]. Susi Wren MD PGY3 Obstetrics and Gynecology [...] present and clear. Leads intact. Batteries changed. [id number]. Will continue to monitor. Vitals: 10/19/24 1735 [...] Herrmann MD PhD Division of Hospital Medicine [phone] [1] azithromycin, 500 mg, Intravenous, Once in [...] Status Stable. Patient on remote telemetry box [id number]. Has good signal and function. Lead placement [...] Presley Date of : 1990 [facility] Reason for consultation: Epigastric pain Subjective: History [...] Elvis Kay MD GI Fellow, PGY-5 Pager: [phone] [1] Past Medical History: Diagnosis Date Maternal [...] Date SECTION, LOW TRANSVERSE N/A section from DNA13 DILATION AND CURETTAGE OF UTERUS N/A Dilation and curettage from DNA13 WISDOM TOOTH EXTRACTION N/A Oral Surgery Tooth Extraction Inverness Tooth from DNA13 [3] Family History Problem Relation Name Age [...] pt Multiple Births: No Uterine Activity Mode: Mcguffey Contraction Frequency: one traced Contraction Duration: 140 [...] care, please call OB resident workroom at #[phone]. Shazia Booker MD OBGYN Resident PGY-3 Cosigned [...] Does have intermittent depressed T waves. Hard it telecom technician at bedside. * Care Plan - [...] Low Risk (05/28/2024) Received from [facility] Overall Financial Resource Strain (CARDIA) Difficulty of Paying Living Expenses: Not hard at all Food Insecurity: No Food Insecurity (05/28/2024) Received from [facility] Hunger Vital Sign Within the past 12 months, you worried that your food would run out before you got the money to buymore.: Never true Within the past 12 months, the food you bought just didn't last and you didn't have money to get more.: Never true Transportation Needs: No Transportation Needs (05/28/2024) Received from [facility] PRAPARE - Transportation In the past 12 months, has lack of transportation kept you from medical appointments or from getting medications?: No In the past 12 months, has lack of transportation kept you from meetings, work, or from getting things needed for daily living?: No Physical Activity: Sufficiently Active (05/28/2024) Received from [facility] Exercise Vital Sign On average, how many days per week do you engage in moderate to strenuous exercise (like a brisk walk)?: 5 days On average, how many minutes do you engage in exercise at this level?: 40 min Stress: Stress Concern Present (05/27/2024) Received from [facility] [place] [employer] - Occupational Stress Questionnaire Feeling of Stress : To some extent Social Connections: Not At Risk (05/28/2024) Received from [facility] Family and Community Support If for any reason you need help with day-to-day activities such as bathing, preparing meals, shopping, managing finances, etc., do you get the help you need?: I don't need any help How often do you feel lonely or isolated from those around you?: Sometimes Intimate Partner Violence: Not At Risk (08/19/2024) Received from [facility] Abuse Screen Feels Unsafe at Home or Work/School: no Feels Threatened by Someone: no Does Anyone Try to Keep You From Having Contact with Others or Doing Things Outside Your Home?: no Physical Signs of Abuse Present: no Housing Stability: Not At Risk (08/20/2024) Received from [facility] Housing Stability Current Living Arrangements: [...] follow. Urbano Donohue DO Nephrology Fellow Page [phone] [1] Past Medical History: Diagnosis Date Maternal [...] TOOTH EXTRACTION N/A Oral Surgery Tooth Extraction Inverness Tooth from [employer] [4] Family History Problem [...] IVPB 10 mEq, 10 mEq, Intravenous, q1h, Chinyeer Nieto MD, Last Rate:100 mL/hr at 10/18/24 [...] abnormalities Santos Herrmann MD PhD Division of [facility] Medicine [phone] [1] azithromycin, 500 mg, Intravenous, Once in [...] Low Risk (05/28/2024) Received from [facility] Overall Financial Resource Strain (CARDIA) Difficulty of Paying Living Expenses: Not hard at all Food Insecurity: No Food Insecurity (05/28/2024) Received from [facility] Hunger Vital Sign Within the past 12 months, you worried that your food would run out before you got the money to buymore.: Never true Within the past 12 months, the food you bought just didn't last and you didn't have money to get more.: Never true Transportation Needs: No Transportation Needs (05/28/2024) Received from [facility] PRAPARE - Transportation In the past 12 months, has lack of transportation kept you from medical appointments or from getting medications?: No In the past 12 months, has lack of transportation kept you from meetings, work, or from getting things needed for daily living?: No Physical Activity: Sufficiently Active (05/28/2024) Received from [facility] Exercise Vital Sign On average, how many days per week do you engage in moderate to strenuous exercise (like a brisk walk)?: 5 days On average, how many minutes do you engage in exercise at this level?: 40 min Stress: Stress Concern Present (05/27/2024) Received from [facility] - Occupational Stress Questionnaire Feeling of Stress : To some extent Social Connections: Not At Risk (05/28/2024) Received from [facility] Family and Community Support If for any reason you need help with day-to-day activities such as bathing, preparing meals, shopping, managing finances, etc., do you get the help you need?: I don't need any help How often do you feel lonely or isolated from those around you?: Sometimes Intimate Partner Violence: Not At Risk (08/19/2024) Received from [facility] Abuse Screen Feels Unsafe at Home or Work/School: no Feels Threatened by Someone: no Does Anyone Try to Keep You From Having Contact with Others or Doing Things Outside Your Home?: no Physical Signs of Abuse Present: no Housing Stability: Not At Risk (08/20/2024) Received from [facility] Housing Stability Current Living Arrangements: [...] and consequences of such a bleed, 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 I outlined the plans for [...] Date SECTION, LOW TRANSVERSE N/A section from DNA13 DILATION AND CURETTAGE OF UTERUS N/A Dilation and curettage from DNA13 WISDOM TOOTH EXTRACTION N/A Oral Surgery Tooth Extraction Inverness Tooth from DNA13 [3] No current facility-administered medications on file [...] Do not crush,chew, or split. Prenat MV-Min w/Nn-Mbbnzt-PNP ( COMPLETE PO) promethazine (Phenergan) 12.5 MG [...] with prior who initially presented to the [facility] with chief complaint of dyspnea and [...] 10 mEq, 2 times daily Prenat MV-Min w/Qq-Hsnmnq-CUN ( COMPLETE PO) thiamine (VITAMIN B-1) 100 [...] y.o. female who initially presented to the [facility] todaywith chief complaint of -related chest [...] in her dyspnea Please page the on-call fnp with any further questions. I spent 45 minutes performing the following components of the encounter (on the day of the encounter): reviewing History, examining the patient, reviewing imaging and/or labs, Independently interpreting echocardiogram, ECG and/or other imaging results, counseling the patient and family/caregiver, communicating with other health care companion, care coordination, and entering clinical information in the EHR. Greater than 50% of the time spent on the encounter was face to face providing direct patient care, counseling for the patient/caregiver, and care coordination. Ania Mccabe DO PGY-4 Fire Code Inspector 10/18/24 4:22 AM [1] Past Medical History: [...] OF UTERUS N/A Dilation and curettage from DNA13 WISDOM TOOTH EXTRACTION N/A Oral Surgery Tooth Extraction In[place] Tooth from DNA13 Cosigned by Noel Osman MD at 10/18/2024 [...] by: Nya Long MD Consult ordered by: Hitlon Montelongo MD History: Reason for consult: Electrolyte [...] as well. She currently takes daily PO [id number] and PO magnesium 1600mg in addition to [...] 10 mEq, 2 times daily Prenat MV-Min w/Bd-Vixtxl-UAD ( COMPLETE PO) thiamine (VITAMIN B-1) 100 [...] Nya Long MD Internal Medicine PGY-2 Pager: [phone] [1] Allergies Allergen Reactions Bismuth Subsalicylate Other [...] Nieto MD - 10/17/2024 5:05 PM EDT [facility] OBSTETRICS OBSTETRIC EMERGENCY HISTORY & PHYSICAL Patient Name: Whitney Presley : 1990 CHIEF CONCERN: Non-reactive NST, SOA PRIMARY OB: Boby Marin MD Subjective Subjective HPI: Whitney Presley is a 34 y.o. at 33w4d (12/01/2024) who presents with shortness of breath and chest pain that started 2 hours ago. States that she went to see [facility] today and she had an US and failed her BPP and had a non- reactive NST. She also has a complicated past medical history duringthis in which she follows with [facility], cardiology, and nephrology. is complicated by secondary [...] 10 mEq, 2 times daily Prenat MV-Min w/Oa-Ianfkq-RSX ( COMPLETE PO) thiamine (VITAMIN B-1) 100 [...] 4:39 PM Final report signed by Brandin Moraels MD on 10/17/2024 4:40 PM EKG shows [...] and management. Please contact first-call provider on [employer] Secure Chat for questions or concerns. For emergencies [place] [phone]. Jasen iL DO Family Medicine, PGY-1 [facility] Chinyere Cordova MD Obstetrics and Gynecology, [...] TOOTH EXTRACTION N/A Oral Surgery Tooth Extraction Inverness Tooth from [employer] [3] Social History Tobacco [...] Encounter [facility] Labor [facility] Delivery [address] [place] [address] 11/21/2024 11:15 AM EDT Visit Medical Office Building Obstetrics and Gynecology [address], [address] [place] [address] Nneka Gipson MD [address] [place] [address] 12/25/2024 1:00 PM EST Office Visit [facility] Nephrology, Bone & Mineral Metabolism [address], [address] [place] [address] documented as of this encounter [...] Detected(AA) Not Detected 10/21/2024 11:30 AM EDT [facility] Comment:Previously prelim ve rified as Not Detected on 10/20/2024 at 1221 EDT. Herpes Simplex Virus 2 (HSV-2) PCR Result Not Detected Not Detected 10/21/2024 11:30 AM EDT [facility] Serum Venous blood specimen / Unknown 10/19/2024 9:28 PM EDT 10/19/2024 11:58 PM EDT Narrative [facility] - 10/21/2024 11:30 AM EDT This PCR assay was developed and its performance characteristics determined by [facility] as appropriate for clinical purposes. This assay has not been cleared or approved by the FDA, but is performed in a CLIA regulated laboratory that is qualified to perform high-complexity testing. This PCR assay was developed and its performance characteristics determined by [facility] as appropriate for clinical purposes. This assay has not been cleared or approved by the FDA, but is performed in a CLIA regulated laboratory that is qualified to perform high-complexity testing. This PCR assay was developed and its performance characteristics determined by [facility] as appropriate for clinical purposes. This assay has not been cleared or approved by the FDA, but is performed in a CLIA regulated laboratory that is qualified to perform high-complexity testing. us Hilton Montelongo MD LAB MICROBIOLOGY - GENERAL OR DERABLES Final Result [facility] [address] [place] [address] * Brooke Mejias Virus (EBV) Quantitative PCR (10/19/2024 9:28 PM EDT) Brooke Mejias Virus, Blood, Quant DNA Interpretation Not Detected Not Detected 10/23/2024 12:34 PM EDT [facility] Blood Venous blood specimen / Unknown Venipuncture / Unknown 10/19/2024 9:28 PM EDT 10/19/2024 11:58 PM EDT Narrative [facility] - 10/23/2024 12:34 PM [...] developed and it's performance characteristics determined by [facility] as appropriate for clinical purposes. [...] developed and it's performance characteristics determined by [facility] as appropriate for clinical purposes. This assay has not been cleared or approved by the FDA, but is performed in a CLIA regulated laboratory that is qualified to perform high-complexity testing. Hilton Montelongo MD LAB BLOOD ORDERABLES Final Re sult Performing Organization Address [facility] [place] [address] * Cytomegalovirus (CMV) Quantitative PCR (10/19/2024 9:28 PM EDT) Cytomegalovirus (CMV) Quantitative Interpretation Not Detected Not Detected 10/21/2024 12:44 PM EDT [facility] Blood Venous blood specimen / Unknown Venipuncture / Unknown 10/19/2024 9:28 PM EDT 10/19/2024 11:58 PM EDT Narrative [facility] - 10/21/2024 12:44 PM EDT The Accountable M2000 CMV test is a Real Time [...] ORDERABLES Final Re sult Performing Organization Address [facility] [place] [address] * Phosphorus, Plasma (10/19/2024 9:28 PM EDT) Phosphorus, Plasma 2.5 2.5 - 4.5 mg/dL 10/19/2024 10:07 PM EDT [facility] Blood Venous blood specimen / Unknown Venipuncture / Unknown 10/19/2024 9:28 PM EDT 10/19/2024 9:38 PM EDT Result [facility] Santos Herrmann MD LAB BLOOD ORDERABLES Final Resu lt Performing Organization Address [facility]/ZIP Co de Phone Number [facility] [address] [place] [address] * (ABNORMAL) Magnesium (10/19/2024 9:28 PM EDT) Magnesium, Plasma 1.7(L) 1.9 - 2.4 mg/dL 10/19/2024 10:07 PM EDT [facility] Blood Venous blood specimen / Unknown Venipuncture / Unknown 10/19/2024 9:28 PM EDT 10/19/2024 9:38 PM EDT Santos Herrmann MD LAB BLOOD ORDERABLES Final Resu lt Performing Organization Address [facility]/ZIP Co de Phone Number [facility] [address] [place] [address] * (ABNORMAL) Basic metabolic panel (10/19/2024 9:28 PM EDT) Glucose, Plasma 78 74 - 99 mg/dL 10/19/2024 10:07 PM EDT [facility] BUN, Plasma 4(L) 7 - 21 mg/dL 10/19/2024 10:07 PM EDT [facility] Creatinine, Plasma 0.61 0.60 - 1.10 mg/dL 10/19/2024 10:07 PM EDT [facility] BUN/Creatinine Ratio 7 10/19/2024 10:07 PM EDT [facility] Sodium, Plasma 137 136 - 145 mmol/L 10/19/2024 10:07 PM EDT [facility] Potassium, Plasma 4.3 3.6 - 4.9 mmol/L 10/19/2024 10:07 PM EDT [facility] Chloride, Plasma 108(H) 97 - 107 mmol/L 10/19/2024 10:07 PM EDT [facility] CO2, Plasma 20(L) 22 - 29 mmol/L 10/19/2024 10:07 PM EDT [facility] Anion Gap 9 6 - 16 mmol/L 10/19/2024 10:07 PM EDT [facility] Total Calcium, Plasma 7.8(L) 8.9 - 10.2 mg/dL 10/19/2024 10:07 PM EDT [facility] eGFRcr 121.2 mL/min/1.7 3m*2 10/19/2024 10:07 PM EDT [facility] Comment:Reported eGFRcr in m L/min/1.73m2 is based the CKD-EPI 2020 equation that does not use a race coefficient. Blood Venous blood specimen / Unknown Venipuncture / Unknown 10/19/2024 9:28 PM EDT 10/19/2024 9:38 PM EDT Santos Herrmann MD LAB BLOOD ORDERABLES Final Resu lt [facility] [address] [place] [address] * ECG Adult (10/19/2024 6:45 PM EDT) EKG DIAGNOSIS CLASS Normal MUSE ECG Ventricular Rate 82 BPM MUSE ECG Atrial Rate 82 BPM MUSE ECG ME Interval 138 ms MUSE ECG QRSD Interval 80 ms MUSE ECG QT Interval 360 ms MUSE ECG QTC Interval 420 ms MUSE ECG P [place] 46 degrees MUSE ECG R [place] 29 degrees MUSE ECG T Wave [place] 36 degrees MUSE ECG Diagnosis Normal sinus rhythm MUSE ECG Diagnosis Normal ECG MUSE ECG Diagnosis MUSE ECG Diagnosis Confirmed by Noel Osman ([id number]) on 10/20/2024 12:15:29 PM MUSE ECG 10/19/2024 6:45 PM EDT 10/20/2024 12:15 PM EDT us Hilton Montelongo MD ECG ORDERABLES Final Result MUSE ECG * (ABNORMAL) Hepatic function panel (10/19/2024 5:12 PM EDT) Direct Bilirubin, Plasma <0.2 <=0.3 mg/dL 10/19/2024 7:32 PM EDT [facility] Alkaline Phosphatase, Plasma 68 35 - 104 U/L 10/19/2024 7:32 PM EDT [facility] Total Bilirubin, Plasma 0.3 0.2 - 1.1 mg/dL 10/19/2024 7:32 PM EDT [facility] Albumin, Plasma 2.5(L) 3.5 - 5.2 g/dL 10/19/2024 7:32 PM EDT [facility] Total Protein 5.2(L) 6.3 - 7.9 g/dL 10/19/2024 7:32 PM EDT [facility] ALT, Plasma 48(H) 10 - 35 U/L 10/19/2024 7:32 PM EDT [facility] AST, Plasma 35 10 - 35 U/L 10/19/2024 7:32 PM EDT [facility] Blood Venous blood specimen / Unknown Venipuncture / Unknown 10/19/2024 5:12 PM EDT 10/19/2024 5:30 PM EDT us Hilton Montelongo MD LAB BLOOD ORDERABLES Final Re sult Performing Organization Address City/[facility]/ZIP Co de Phone Number [facility] [address] [place] [address] * (ABNORMAL) Phosphorus, Plasma (10/19/2024 5:12 PM EDT) Phosphorus, Plasma 2.2(L) 2.5 - 4.5 mg/dL 10/19/2024 6:02 PM EDT [facility] Blood Venous blood specimen / Unknown Venipuncture / Unknown 10/19/2024 5:12 PM EDT 10/19/2024 5:30 PM EDT us Santos Herrmann MD LAB BLOOD ORDERABLES Final Resu lt [facility] [address] [place] [address] * (ABNORMAL) Magnesium (10/19/2024 5:12 PM EDT) Magnesium, Plasma 1.5(L) 1.9 - 2.4 mg/dL 10/19/2024 6:02 PM EDT [facility] Blood Venous blood specimen / Unknown Venipuncture / Unknown 10/19/2024 5:12 PM EDT 10/19/2024 5:30 PM EDT us Santos Herrmann MD LAB BLOOD ORDERABLES Final Resu lt [facility] [address] [place] [address] * (ABNORMAL) Basic metabolic panel (10/19/2024 5:12 PM EDT) Glucose, Plasma 121(H) 74 - 99 mg/dL 10/19/2024 6:02 PM EDT [facility] BUN, Plasma 4(L) 7 - 21 mg/dL 10/19/2024 6:02 PM EDT [facility] Creatinine, Plasma 0.58(L) 0.60 - 1.10 mg/dL 10/19/2024 6:02 PM EDT [facility] BUN/Creatinine Ratio 7 10/19/2024 6:02 PM EDT [facility] Sodium, Plasma 137 136 - 145 mmol/L 10/19/2024 6:02 PM EDT [facility] Potassium, Plasma 4.0 3.6 - 4.9 mmol/L 10/19/2024 6:02 PM EDT [facility] Chloride, Plasma 105 97 - 107 mmol/L 10/19/2024 6:02 PM EDT [facility] CO2, Plasma 20(L) 22 - 29 mmol/L 10/19/2024 6:02 PM EDT [facility] Anion Gap 12 6 - 16 mmol/L 10/19/2024 6:02 PM EDT [facility] Total Calcium, Plasma 8.0(L) 8.9 - 10.2 mg/dL 10/19/2024 6:02 PM EDT [facility] eGFRcr 122.7 mL/min/1.7 3m*2 10/19/2024 6:02 PM EDT [facility] Comment:Reported eGFRcr in m L/min/1.73m2 is based the CKD-EPI 2020 equation that does not use a race coefficient. Blood Venous blood specimen / Unknown Venipuncture / Unknown 10/19/2024 5:12 PM EDT 10/19/2024 5:30 PM EDT us Santos Herrmann MD LAB BLOOD ORDERABLES Final Resu lt [facility] [address] [place] [address] * US Abdomen Focused Region Liver, GB, [...] Urine <6 mg/dL 10/19/2024 3:39 PM EDT [facility] Total Protein per day 10/19/2024 3:39 PM EDT [facility] Comment:Unable to calculate, at least one value is above or below the detection limit. Hours Of Collection 24 HRS 10/19/2024 3:39 PM EDT [facility] Urine, Volume 2,750 mL 10/19/2024 3:39 PM EDT [facility] Urine Urine specimen obtained by clean catch procedure / Unknown Non-blood Collection / Unknown 10/19/2024 2:43 PM EDT 10/19/2024 2:52 PM EDT Narrative [facility] - 10/19/2024 3:39 PM EDT Reference Range <80 mg/day if bed rest <150 mg/day if ambulatory us Santos Herrmann MD LAB URINE ORDERABLES Final Resu lt Performing Organization Address [facility] [place]/[facility] Co de Phone Number [facility] [address] [place] [address] * Potassium, Urine, 24 Hour (10/19/2024 2:43 PM EDT) Potassium, Urine 20 mmol/L 10/19/2024 3:39 PM EDT [facility] Hours Of Collection 24 HRS 10/19/2024 3:39 PM EDT [facility] Urine, Volume 2,750 mL 10/19/2024 3:39 PM EDT [facility] Potassium per day, Urine 55 18 - 58 mmol/d 10/19/2024 3:39 PM EDT [facility] Urine Urine specimen obtained by clean catch procedure / Unknown Non-blood Collection / Unknown 10/19/2024 2:43 PM EDT 10/19/2024 2:52 PM EDT us Santos Herrmann MD LAB URINE ORDERABLES Final Resu lt Performing Organization Address City/[facility]/ZIP Co de Phone Number [facility] [address] [place] [address] * Sodium, 24 Hour, Urine (10/19/2024 2:43 PM EDT) Sodium, Urine 45 mmol/L 10/19/2024 3:39 PM EDT [facility] Sodium per day 124 48 - 168 mmol/d 10/19/2024 3:39 PM EDT [facility] Hours Of Collection 24 HRS 10/19/2024 3:39 PM EDT [facility] Urine, Volume 2,750 mL 10/19/2024 3:39 PM EDT [facility] Urine Urine specimen obtained by clean catch procedure / Unknown Non-blood Collection / Unknown 10/19/2024 2:43 PM EDT 10/19/2024 2:52 PM EDT us Santos Herrmann MD LAB URINE ORDERABLES Final Resu lt Performing Organization Address [facility] de Phone Number [facility] [address] [place] [address] * Phosphorus, Urine, 24 Hour (10/19/2024 2:43 PM EDT) Phosphorus, Urine 29.1 mg/dL 10/19/2024 3:24 PM EDT [facility] Phosphorus per day, Urine 0.8 0.4 - 1.3 g/d 10/19/2024 3:24 PM EDT [facility] Hours Of Collection 24 HRS 10/19/2024 3:24 PM EDT [facility] Urine, Volume 2,750 mL 10/19/2024 3:24 PM EDT [facility] Urine Urine specimen obtained by clean catch procedure / Unknown Non-blood Collection / Unknown 10/19/2024 2:43 PM EDT 10/19/2024 2:53 PM EDT us Santos Herrmann MD LAB URINE ORDERABLES Final Resu lt Performing Organization Address [facility] [place]/[facility]/ZIP Co de Phone Number [facility] [address] [place] [address] * (ABNORMAL) Magnesium, urine, 24 hour (10/19/2024 2:43 PM EDT) Magnesium, Random Urine 24.3 mg/dL 10/19/2024 3:24 PM EDT [facility] Magnesium per day 668.3(H) 70.0 - 120.0 mg/d 10/19/2024 3:24 PM EDT [facility] Hours Of Collection 24 HRS 10/19/2024 3:24 PM EDT [facility] Urine, Volume 2,750 mL 10/19/2024 3:24 PM EDT [facility] Urine Urine specimen obtained by clean catch procedure / Unknown Non-blood Collection / Unknown 10/19/2024 2:43 PM EDT 10/19/2024 2:53 PM EDT us Santos Herrmann MD LAB URINE ORDERABLES Final Resu lt Performing Organization Address [facility] [place]/[facility] Co de Phone Number [facility] [address] [place] [address] * Creatinine, 24 Hour Urine (10/19/2024 2:43 PM EDT) Creatinine, Urine 30 mg/dL 10/19/2024 3:39 PM EDT [facility] Creatinine per day, Urine 825 500 - 1,600 mg/d 10/19/2024 3:39 PM EDT [facility] Hours Of Collection 24 HRS 10/19/2024 3:39 PM EDT [facility] Urine, Volume 2,750 mL 10/19/2024 3:39 PM EDT [facility] Urine Urine specimen obtained by clean catch procedure / Unknown Non-blood Collection / Unknown 10/19/2024 2:43 PM EDT 10/19/2024 2:52 PM EDT us Santos Herrmann MD LAB URINE ORDERABLES Final Resu lt Performing Organization Address [facility] [place]/[facility]/ZIP Co de Phone Number [facility] [address] [place] [address] * Chloride, 24 Hour Urine (10/19/2024 2:43 PM EDT) Chloride, Urine <20 mmol/L 3:39 PM EDT [facility] Hours Of Collection 24 HRS 10/19/2024 3:39 PM EDT [facility] Urine, Volume 2,750 mL 10/19/2024 3:39 PM EDT [facility] Chloride per day, Urine 10/19/2024 3:39 PM EDT [facility] Comment:Unable to calculate, at least one value is above or below the detection limit. Urine Urine specimen obtained by clean catch procedure / Unknown Non-blood Collection / Unknown 10/19/2024 2:43 PM EDT 10/19/2024 2:52 PM EDT Santos Herrmann MD LAB URINE ORDERABLES Final Resu lt Performing Organization Address [facility] [place]/[facility]/ZIP Co de Phone Number [facility] [address] [place] [address] * Calcium, 24 Hour Urine (10/19/2024 2:43 PM EDT) Calcium, Urine 3.1 mg/dL 10/19/2024 3:24 PM EDT [facility] Calcium per day, Urine 85 mg/day 10/19/2024 3:24 PM EDT [facility] Hours Of Collection 24 HRS 10/19/2024 3:24 PM EDT [facility] Urine, Volume 2,750 mL 10/19/2024 3:24 PM EDT [facility] Urine Urine specimen obtained by clean catch procedure / Unknown Non-blood Collection / Unknown 10/19/2024 2:43 PM EDT 10/19/2024 2:53 PM EDT Narrative [facility] - 10/19/2024 3:24 PM EDT Free Ca diet 5 - 40 mg/d Low to average Ca diet 50 - 150 mg/d Average Ca diet 100 - 300 mg/d us Santos Herrmann MD LAB URINE ORDERABLES Final Resu lt Performing Organization Address [facility] [place]/[facility]/ZIP Co de Phone Number [facility] [address] [place] [address] * Albumin-creatinine ratio, 24 hr urine (10/19/2024 2:43 PM EDT) Microalbumin, Urine <1.2 <1.9 mg/dL 10/19/2024 3:39 PM EDT [facility] Albumin per day 3:39 PM EDT [facility] Comment:Unable to calculate, at least one value is above or below the detection limit. Microalbumin Excretion Rate 10/19/2024 3:39 PM EDT [facility] Comment:Unable to calculate, at least one value is above or below the detection limit. Creatinine, Urine 30 mg/dL 025 3:39 PM EDT [facility] Creatinine, 24H Ur 825 500 - 1,600 mg/d 10/19/2024 3:39 PM EDT [facility] Comment:Unable to calculate, at least one value is above or below the detection limit. Albumin/Creatinin e Ratio 10/19/2024 3:39 PM EDT [facility] Comment:Unable to calculate, at least one value is above or below the detection limit. Hours Of Collection 24 HRS 10/19/2024 3:39 PM EDT [facility] Urine, Volume 2,750 mL 10/19/2024 3:39 PM EDT [facility] Urine Urine specimen obtained by clean catch procedure / Unknown Non-blood Collection / Unknown 10/19/2024 2:43 PM EDT 10/19/2024 2:52 PM EDT us Santos Herrmann MD LAB URINE ORDERABLES Final Resu lt Performing Organization Address City/State/[facility] Co de Phone Number [facility] [address] [place] [address] * (ABNORMAL) Aldosterone, urine, 24 hour (10/19/2024 2:42 PM EDT) Creatinine, Urine - per 24h 908 700 - 1600 mg/d 10/27/2024 10:59 PM EDT [facility] Creatinine, Urine - per volume 33 mg/dL 10/27/2024 10:59 PM EDT [facility] ([facility]) Total Volume 2750 mL 10/27/2024 10:59 PM EDT [facility] ([facility]) Hours Collected 24 hr 10/27/2024 10:59 PM EDT [facility] ([facility]) ALDOSTERONE,UR INE RESULT 310.6(H) 1.2 - 28.1 ug/d 10/27/2024 10:59 PM EDT [facility] ([facility]) Urine Urine specimen obtained by clean catch procedure / Unknown Non-blood Collection / Unknown 10/19/2024 2:42 PM EDT 10/19/2024 4:27 PM EDT Narrative [facility] ([facility]) - 10/27/2024 10:59 PM EDT Per 24h calculations are provided to aid interpretation for collections with a duration of 24 hours and an average daily urine volume. For specimens with notable deviations in collection time or volume, ratios of analytes to a corresponding urine creatinine concentration may assist in result interpretation. Performed By: [facility] [address] [place] [address] [id number] Armor Crewman: Brandon Bell MD, PhD CLIA Number: [id number] us Santos Herrmann MD LAB URINE ORDERABLES Final Resu lt [facility] ([facility]) [address] [place] [address] * Magnesium (10/19/2024 7:03 AM EDT) Magnesium, Plasma 2.1 1.9 - 2.4 mg/dL 10/19/2024 7:54 AM EDT [facility] Blood Venous blood specimen / Unknown Venipuncture / Unknown 10/19/2024 7:03 AM EDT 10/19/2024 7:06 AM EDT us Hilton Montelongo MD LAB BLOOD ORDERABLES Final Re sult [facility] [address] [place] [address] * Phosphorus (10/19/2024 7:03 AM EDT) Phosphorus, Plasma 3.3 2.5 - 4.5 mg/dL 10/19/2024 7:54 AM EDT [facility] Blood Venous blood specimen / Unknown Venipuncture / Unknown 10/19/2024 7:03 AM EDT 10/19/2024 7:06 AM EDT us Hilton Montelongo MD LAB BLOOD ORDERABLES Final Re sult Performing Organization Address [facility] [place]/[facility]/ZIP Co de Phone Number [facility] [address] [place] [address] * Phosphorus, Plasma (10/19/2024 7:03 AM EDT) Phosphorus, Plasma 3.3 2.5 - 4.5 mg/dL 10/19/2024 7:32 AM EDT [facility] Blood Venous blood specimen / Unknown Venipuncture / Unknown 10/19/2024 7:03 AM EDT 10/19/2024 7:06 AM EDT us Hilton Montelongo MD LAB BLOOD ORDERABLES Final Re sult Performing Organization Address [facility] [place]/[facility]/ZIP Co de Phone Number [facility] [address] [place] [address] * Magnesium (10/19/2024 7:03 AM EDT) Magnesium, Plasma 2.1 1.9 - 2.4 mg/dL 10/19/2024 7:32 AM EDT [facility] Blood Venous blood specimen / Unknown Venipuncture / Unknown 10/19/2024 7:03 AM EDT 10/19/2024 7:06 AM EDT us Hilton Montelongo MD LAB BLOOD ORDERABLES Final Re sult Performing Organization Address City/[facility]/ZIP Co de Phone Number [facility] [address] [place] [address] * (ABNORMAL) Basic metabolic panel (10/19/2024 7:03 AM EDT) Glucose, Plasma 88 74 - 99 mg/dL 10/19/2024 7:36 AM EDT [facility] BUN, Plasma 6(L) 7 - 21 mg/dL 10/19/2024 7:36 AM EDT [facility] Creatinine, Plasma 0.60 0.60 - 1.10 mg/dL 10/19/2024 7:36 AM EDT [facility] BUN/Creatinine Ratio 10 10/19/2024 7:36 AM EDT [facility] Sodium, Plasma 139 136 - 145 mmol/L 10/19/2024 7:36 AM EDT [facility] Potassium, Plasma 3.5(L) 3.6 - 4.9 mmol/L 10/19/2024 7:36 AM EDT [facility] Chloride, Plasma 105 97 - 107 mmol/L 10/19/2024 7:36 AM EDT [facility] CO2, Plasma 24 22 - 29 mmol/L 10/19/2024 7:36 AM EDT [facility] Anion Gap 10 6 - 16 mmol/L 10/19/2024 7:36 AM EDT [facility] Total Calcium, Plasma 8.3(L) 8.9 - 10.2 mg/dL 10/19/2024 7:36 AM EDT [facility] eGFRcr 121.7 mL/min/1.7 3m*2 10/19/2024 7:36 AM EDT [facility] Comment:Reported eGFRcr in m L/min/1.73m2 is based the CKD-EPI 2020 equation that does not use a race coefficient. Blood Venous blood specimen / Unknown Venipuncture / Unknown 10/19/2024 7:03 AM EDT 10/19/2024 7:06 AM EDT us Hilton Montelongo MD LAB BLOOD ORDERABLES Final Re sult [facility] [address] [place] [address] * Phosphorus, Plasma (10/18/2024 10:56 PM EDT) Phosphorus, Plasma 3.3 2.5 - 4.5 mg/dL 10/18/2024 11:57 PM EDT [facility] Blood Venous blood specimen / Unknown Venipuncture / Unknown 10/18/2024 10:56 PM EDT 10/18/2024 11:07 PM EDT us Hilton Montelongo MD LAB BLOOD ORDERABLES Final Re sult Performing Organization Address [facility] [place]/[facility] Co de Phone Number [facility] [address] [place] [address] * (ABNORMAL) Magnesium (10/18/2024 10:56 PM EDT) Magnesium, Plasma 3.1(H) 1.9 - 2.4 mg/dL 10/18/2024 11:57 PM EDT [facility] Blood Venous blood specimen / Unknown Venipuncture / Unknown 10/18/2024 10:56 PM EDT 10/18/2024 11:07 PM EDT us Hilton Montelongo MD LAB BLOOD ORDERABLES Final Re sult Performing Organization Address [facility] [place]/[facility] Co de Phone Number [facility] [address] [place] [address] * (ABNORMAL) Basic metabolic panel (10/18/2024 10:56 PM EDT) Glucose, Plasma 104(H) 74 - 99 mg/dL 10/18/2024 11:57 PM EDT [facility] BUN, Plasma 7 7 - 21 mg/dL 10/18/2024 11:57 PM EDT [facility] Creatinine, Plasma 0.63 0.60 - 1.10 mg/dL 10/18/2024 11:57 PM EDT [facility] BUN/Creatinine Ratio 11 10/18/2024 11:57 PM EDT [facility] Sodium, Plasma 136 136 - 145 mmol/L 10/18/2024 11:57 PM EDT [facility] Potassium, Plasma 3.5(L) 3.6 - 4.9 mmol/L 10/18/2024 11:57 PM EDT [facility] Chloride, Plasma 100 97 - 107 mmol/L 10/18/2024 11:57 PM EDT [facility] CO2, Plasma 26 22 - 29 mmol/L 10/18/2024 11:57 PM EDT [facility] Anion Gap 10 6 - 16 mmol/L 10/18/2024 11:57 PM EDT [facility] Total Calcium, Plasma 7.8(L) 8.9 - 10.2 mg/dL 10/18/2024 11:57 PM EDT [facility] eGFRcr 120.3 mL/min/1.7 3m*2 10/18/2024 11:57 PM EDT [facility] Comment:Reported eGFRcr in m L/min/1.73m2 is based the CKD-EPI 2020 equation that does not use a race coefficient. Blood Venous blood specimen / Unknown Venipuncture / Unknown 10/18/2024 10:56 PM EDT 10/18/2024 11:07 PM EDT us Hilton Montelongo MD LAB BLOOD ORDERABLES Final Re sult Performing Organization Address City/[facility]/ZIP Co de Phone Number [facility] [address] [place] [address] * (ABNORMAL) Aldosterone (10/18/2024 10:56 PM EDT) Aldosterone 115.0(H) 4.0 - 31.0 ng/dL 10/21/2024 8:21 AM EDT [facility] Blood Venous blood specimen / Unknown Venipuncture / Unknown 10/18/2024 10:56 PM EDT 10/18/2024 11:29 PM EDT us Santos Herrmann MD LAB BLOOD ORDERABLES Final Resu lt [facility] [address] [place] [address] * (ABNORMAL) Plasma Renin Activity (LC/MS/MS) (10/18/2024 10:56 PM EDT) PRA RESULT 30.67(H) 0.25 - 5.82 ng/mL/h 10/24/2024 7:47 PM EDT [facility] ([facility] ([facility]) Comment: This test was developed and its analytical performance characteristics have been determined by [employer]. It has not been cleared or approved by the FDA. This assay has been validated pursuant to the CLIA regulations and is used for clinical purposes. Blood Venous blood specimen / Unknown Venipuncture / Unknown 10/18/2024 10:56 PM EDT 10/18/2024 11:08 PM EDT Narrative [facility] ([facility] ([facility]) - 10/24/2024 7:47 PM EDT Performing Organization Information: Site ID: [id number] Name: [facility] Address: [address] [place] [id number] Director: Malik Islas MD, PhD Santos Herrmann MD LAB BLOOD ORDERABLES Final Resu lt Performing Organization Address City/[facility]/ZIP Co de Phone Number [facility] ([facility] ([facility]) [employer] [address] [address] * (ABNORMAL) Phosphorus, Plasma (10/18/2024 6:30 PM EDT) Phosphorus, Plasma 1.8(L) 2.5 - 4.5 mg/dL 10/18/2024 7:14 PM EDT [facility] Blood Venous blood specimen / Unknown Venipuncture / Unknown 10/18/2024 6:30 PM EDT 10/18/2024 6:42 PM EDT us Hilton Montelongo MD LAB BLOOD ORDERABLES Final Re sult [facility] [address] [place] [address] * (ABNORMAL) Magnesium (10/18/2024 6:30 PM EDT) Magnesium, Plasma 2.5(H) 1.9 - 2.4 mg/dL 10/18/2024 7:14 PM EDT [facility] Blood Venous blood specimen / Unknown Venipuncture / Unknown 10/18/2024 6:30 PM EDT 10/18/2024 6:42 PM EDT us Hilton Montelongo MD LAB BLOOD ORDERABLES Final Re sult [facility] [address] [place] [address] * (ABNORMAL) Basic metabolic panel (10/18/2024 6:30 PM EDT) Glucose, Plasma 100(H) 74 - 99 mg/dL 10/18/2024 7:14 PM EDT [facility] BUN, Plasma 7 7 - 21 mg/dL 10/18/2024 7:14 PM EDT [facility] Creatinine, Plasma 0.65 0.60 - 1.10 mg/dL 10/18/2024 7:14 PM EDT [facility] BUN/Creatinine Ratio 11 10/18/2024 7:14 PM EDT [facility] Sodium, Plasma 137 136 - 145 mmol/L 10/18/2024 7:14 PM EDT [facility] Potassium, Plasma 3.9 3.6 - 4.9 mmol/L 10/18/2024 7:14 PM EDT [facility] Chloride, Plasma 102 97 - 107 mmol/L 10/18/2024 7:14 PM EDT [facility] CO2, Plasma 25 22 - 29 mmol/L 10/18/2024 7:14 PM EDT [facility] Anion Gap 10 6 - 16 mmol/L 10/18/2024 7:14 PM EDT [facility] Total Calcium, Plasma 8.1(L) 8.9 - 10.2 mg/dL 10/18/2024 7:14 PM EDT [facility] eGFRcr 119.4 mL/min/1.7 3m*2 10/18/2024 7:14 PM EDT [facility] Comment:Reported eGFRcr in m L/min/1.73m2 is based the CKD-EPI 2020 equation that does not use a race coefficient. Blood Venous blood specimen / Unknown Venipuncture / Unknown 10/18/2024 6:30 PM EDT 10/18/2024 6:42 PM EDT Hilton Montelongo MD LAB BLOOD ORDERABLES Final Re sult [facility] [address] [place] [address] * Group B Streptococcus by PCR (10/18/2024 1:47 PM EDT) [facility] Group B Streptococcus PCR Result Not Detected Not Detected 10/20/2024 7:26 AM EDT [facility] Swab Rectovaginal / Unknown Non-blood Collection / Unknown 10/18/2024 1:47 PM EDT 10/18/2024 1:59 PM EDT Narrative [facility] - 10/20/2024 7:26 AM [...] OR DERABLES Final Result Performing Organization Address City/[facility]/[place] [address] * (ABNORMAL) Phosphorus, Plasma (10/18/2024 1:47 PM EDT) [facility] Phosphorus, Plasma 1.5(L) 2.5 - 4.5 mg/dL 10/18/2024 3:05 PM EDT [facility] Blood Venous blood specimen / Unknown Venipuncture / Unknown 10/18/2024 1:47 PM EDT 10/18/2024 2:26 PM EDT Hilton Montelongo MD LAB BLOOD ORDERABLES Final Re sult [facility] [address] [place] [address] * (ABNORMAL) Magnesium (10/18/2024 1:47 PM EDT) Magnesium, Plasma 1.7(L) 1.9 - 2.4 mg/dL 10/18/2024 3:05 PM EDT [facility] Blood Venous blood specimen / Unknown Venipuncture / Unknown 10/18/2024 1:47 PM EDT 10/18/2024 2:26 PM EDT us Hilton Montelongo MD LAB BLOOD ORDERABLES Final Re sult [facility] [address] [place] [address] * (ABNORMAL) Basic metabolic panel (10/18/2024 1:47 PM EDT) Pathologist [facility] Glucose, Plasma 119(H) 74 - 99 mg/dL 10/18/2024 3:05 PM EDT [facility] BUN, Plasma 8 7 - 21 mg/dL 10/18/2024 3:05 PM EDT [facility] Creatinine, Plasma 0.64 0.60 - 1.10 mg/dL 10/18/2024 3:05 PM EDT [facility] BUN/Creatinine Ratio 13 10/18/2024 3:05 PM EDT [facility] Sodium, Plasma 132(L) 136 - 145 mmol/L 10/18/2024 3:05 PM EDT [facility] Potassium, Plasma 3.9 3.6 - 4.9 mmol/L 10/18/2024 3:05 PM EDT [facility] Chloride, Plasma 98 97 - 107 mmol/L 10/18/2024 3:05 PM EDT [facility] CO2, Plasma 23 22 - 29 mmol/L 10/18/2024 3:05 PM EDT [facility] Anion Gap 11 6 - 16 mmol/L 10/18/2024 3:05 PM EDT [facility] Total Calcium, Plasma 8.0(L) 8.9 - 10.2 mg/dL 10/18/2024 3:05 PM EDT [facility] eGFRcr 119.8 mL/min/1.7 3m*2 [...] Re sult Performing Organization Address [facility]/[place] [address] * (ABNORMAL) Phosphorus, Plasma (10/18/2024 1:46 PM EDT) Phosphorus, Plasma 1.5(L) 2.5 - 4.5 mg/dL 10/18/2024 3:05 PM EDT [facility] Blood Venous blood specimen / Unknown Venipuncture / Unknown 10/18/2024 1:46 PM EDT 10/18/2024 2:26 PM EDT Result Jaden Montelongo MD LAB BLOOD ORDERABLES Final Re sult Performing Organization Address [facility] [place] [address] * (ABNORMAL) Magnesium (10/18/2024 1:46 PM EDT) Magnesium, Plasma 1.7(L) 1.9 - 2.4 mg/dL 10/18/2024 3:05 PM EDT [facility] Blood Venous blood specimen / Unknown Venipuncture / Unknown 10/18/2024 1:46 PM EDT 10/18/2024 2:26 PM EDT us Hilton Montelongo MD LAB BLOOD ORDERABLES Final Re sult Performing Organization Address [facility] [place] [address] * (ABNORMAL) Basic metabolic panel (10/18/2024 1:46 PM EDT) Glucose, Plasma 121(H) 74 - 99 mg/dL 10/18/2024 3:05 PM EDT [facility] BUN, Plasma 8 7 - 21 mg/dL 10/18/2024 3:05 PM EDT [facility] Creatinine, Plasma 0.65 0.60 - 1.10 mg/dL 10/18/2024 3:05 PM EDT [facility] BUN/Creatinine Ratio 12 10/18/2024 3:05 PM EDT [facility] Sodium, Plasma 134(L) 136 - 145 mmol/L 10/18/2024 3:05 PM EDT [facility] Potassium, Plasma 4.0 3.6 - 4.9 mmol/L 10/18/2024 3:05 PM EDT [facility] Chloride, Plasma 100 97 - 107 mmol/L 10/18/2024 3:05 PM EDT [facility] CO2, Plasma 23 22 - 29 mmol/L 10/18/2024 3:05 PM EDT [facility] Anion Gap 11 6 - 16 mmol/L 10/18/2024 3:05 PM EDT [facility] Total Calcium, Plasma 8.0(L) 8.9 - 10.2 mg/dL 10/18/2024 3:05 PM EDT [facility] eGFRcr 119.4 mL/min/1.7 3m*2 10/18/2024 3:05 PM EDT [facility] Comment:Reported eGFRcr in m L/min/1.73m2 is based the CKD-EPI 2020 equation that does not use a race coefficient. Blood Venous blood specimen / Unknown Venipuncture / Unknown 10/18/2024 1:46 PM EDT 10/18/2024 2:26 PM EDT us Hilton Montelongo MD LAB BLOOD ORDERABLES Final Re sult [facility] [address] [place] [address] * ECHO, ADULT TRANSTHORACIC COMPLETE (10/18/2024 11:40 [...] Root Diam 31 mm RILEY ISCV PA ME(ACCEL) 28.2 mmHg RILEY ISCV LVLs ap2 6.7 [...] is no recent study available for direct [id number] comparison. Patient is 33 wks 5 days [...] is no recent study available for direct [id number] comparison. us Hilton Montelongo MD CV ECHO PROCEDURES Final Resu lt * POCT glucose meter (10/18/2024 9:42 AM EDT) [facility] POCT Glucose 78 74 - 99 [...] Comment 10/18/2024 9:52 AM EDT [facility] [employer] ID Tex Harman 025 9:52 AM EDT [facility] Device ID [id number] 10/18/2024 9:52 AM EDT [facility] Specimen Type POC Capillary 10/18/2024 9:52 AM EDT [facility] Blood Capillary blood specimen / Unknown 10/18/2024 9:42 AM EDT 10/18/2024 9:52 AM EDT us Hilton Montelongo MD LAB POINT OF CARE TE ST DOCKED DEVICE UNSOLICITED RESULTS Final Result Performing Organization Address City/[facility]/ZIP Co de Phone Number HEALTHCARE LAB [address] [place] [address] * Light Green Top (10/18/2024 9:14 AM EDT) [facility] Extra Hold for add-ons 10/18/2024 12:01 PM EDT [facility] Comment:Auto resulted. Blood Venous blood specimen / Unknown 10/18/2024 9:14 AM EDT 10/18/2024 9:27 AM EDT us Hilton Montelongo MD LAB BLOOD ORDERABLES Final Re sult [facility] [address] [place] [address] * Phosphorus, Plasma (10/18/2024 9:14 AM EDT) Phosphorus, Plasma 3.2 2.5 - 4.5 mg/dL 10/18/2024 10:29 AM EDT [facility] Blood Venous blood specimen / Unknown Venipuncture / Unknown 10/18/2024 9:14 AM EDT 10/18/2024 9:36 AM EDT Hilton Montelongo MD LAB BLOOD ORDERABLES Final Re sult Performing Organization Address [facility] [place]/ZIP Co de Phone Number [facility] [address] [place] [address] * (ABNORMAL) Magnesium (10/18/2024 9:14 AM EDT) Magnesium, Plasma 1.8(L) 1.9 - 2.4 mg/dL 10/18/2024 10:29 AM EDT [facility] Blood Venous blood specimen / Unknown Venipuncture / Unknown 10/18/2024 9:14 AM EDT 10/18/2024 9:36 AM EDT Hilton Montelongo MD LAB BLOOD ORDERABLES Final Re sult Performing Organization Address [facility]/ZIP Co de Phone Number [facility] [address] [place] [address] * (ABNORMAL) Basic metabolic panel (10/18/2024 9:14 AM EDT) Glucose, Plasma 76 74 - 99 mg/dL 10/18/2024 10:29 AM EDT [facility] BUN, Plasma 9 7 - 21 mg/dL 10/18/2024 10:29 AM EDT [facility] Creatinine, Plasma 0.66 0.60 - 1.10 mg/dL 10/18/2024 10:29 AM EDT [facility] BUN/Creatinine Ratio 14 10/18/2024 10:29 AM EDT [facility] Sodium, Plasma 134(L) 136 - 145 mmol/L 10/18/2024 10:29 AM EDT [facility] Potassium, Plasma 3.2(L) 3.6 - 4.9 mmol/L 10/18/2024 10:29 AM EDT [facility] Chloride, Plasma 94(L) 97 - 107 mmol/L 10/18/2024 10:29 AM EDT [facility] CO2, Plasma 27 22 - 29 mmol/L 10/18/2024 10:29 AM EDT [facility] Anion Gap 13 6 - 16 mmol/L 10/18/2024 10:29 AM EDT [facility] Total Calcium, Plasma 8.2(L) 8.9 - 10.2 mg/dL 10/18/2024 10:29 AM EDT [facility] eGFRcr 119.0 mL/min/1.7 3m*2 10/18/2024 10:29 AM EDT [facility] Comment:Reported eGFRcr in m L/min/1.73m2 is based the CKD-EPI 2020 equation that does not use a race coefficient. Blood Venous blood specimen / Unknown Venipuncture / Unknown 10/18/2024 9:14 AM EDT 10/18/2024 9:36 AM EDT us Hilton Montelongo MD LAB BLOOD ORDERABLES Final Re sult [facility] [address] [place] [address] * ECG Adult (10/18/2024 8:54 AM EDT) EKG DIAGNOSIS CLASS Abnormal MUSE ECG Ventricular Rate 95 BPM MUSE ECG Atrial Rate 95 BPM MUSE ECG ME Interval 146 ms MUSE ECG QRSD Interval 80 ms MUSE ECG QT Interval 346 ms MUSE ECG QTC Interval 434 ms MUSE ECG P Valdez 53 degrees MUSE ECG R Valdez 46 degrees MUSE ECG T Wave Valdez 42 degrees MUSE ECG Diagnosis Sinus rhythm with frequent premature ventricular complexes and premature atrial complexes MUSE ECG Diagnosis Nonspecific ST abnormality MUSE ECG Diagnosis Abnormal ECG MUSE ECG Diagnosis MUSE ECG Diagnosis Confirmed by Amish Paz ([id number]) on 10/18/2024 1:47:52 PM MUSE ECG 10/18/2024 8:54 AM EDT 10/18/2024 1:47 PM EDT Result [facility] Hilton Montelongo MD ECG ORDERABLES Final Result MUSE ECG * OB US Biophysical Profile wo Non Stress Testing (10/18/2024 8:50 AM EDT) Anatomical Region Laterality Modality Body Ultrasound 10/18/2024 8:28 AM EDT Impressions 10/18/2024 9:40 AM EDT The OB Ultrasound you requested has been resulted. Please navigate to the Imaging tab in [employer] for review. This message has been generated by the interface. Narrative Procedure Note Nneka Gipson MD - 10/18/2024 IMPRESSION: The OB Ultrasound you requested has been resulted. Please navigate to theImaging tab in [employer] for review. This message has been generated by [employer]. Result [facility] Hilton Montelongo MD IMG OB US PROCEDURES Final Re sult * Protein, Random, Urine with Creatinine (10/18/2024 4:03 AM EDT) Protein, Urine 10 mg/dL 10/18/2024 4:44 AM EDT [facility] Creatinine, Urine 62 mg/dL 10/18/2024 4:44 AM EDT [facility] Protein/Creatin ine Ratio 0.2 mg/mg Creat 10/18/2024 4:44 AM EDT [facility] Urine Urine specimen obtained by clean catch procedure / Unknown Non-blood Collection / Unknown 10/18/2024 4:03 AM EDT 10/18/2024 4:11 AM EDT Result [facility] Hilton Montelongo MD LAB URINE ORDERABLES Final Re sult [facility] [address] [facility] [place] [address] * (ABNORMAL) Ionized calcium, whole blood (10/18/2024 3:38 AM EDT) Ionized Calcium, Whole Blood 4.3(L) 4.6 - 5.1 mg/dL LAB HEMATOLOGY METHOD 10/18/2024 5:42 AM EDT [facility] Blood Venous blood specimen / Unknown Venipuncture / Unknown 10/18/2024 3:38 AM EDT 10/18/2024 3:48 AM EDT us Hilton Montelongo MD LAB BLOOD ORDERABLES Final Re sult [facility] [address] [place] [address] * (ABNORMAL) Blood gas panel, venous (10/18/2024 3:38 AM EDT) Pathologist [facility] pH, Venous 7.47(H) 7.32 - 7.43 LAB HEMATOLOGY METHOD 10/18/2024 3:50 AM EDT [facility] pCO2, Venous 44 37 - 52 mmHg LAB HEMATOLOGY METHOD 10/18/2024 3:50 AM EDT [facility] pO2, Venous 115(H) 25 - 40 mmHg LAB HEMATOLOGY METHOD 10/18/2024 3:50 AM EDT [facility] SO2, Measured, Venous 100(H) 65 - 80 % LAB HEMATOLOGY METHOD 10/18/2024 3:50 AM EDT [facility] Base Excess, Venous 7.1(H) -2.0 - 3.0 mmol/L LAB HEMATOLOGY METHOD 10/18/2024 3:50 AM EDT [facility] Bicarbonate, Calculated, Venous 32(H) 22 - 26 mmol/L LAB HEMATOLOGY METHOD 10/18/2024 3:50 AM EDT [facility] Hematocrit, Whole Blood 27.5(L) 34.0 - 45.0 % LAB HEMATOLOGY METHOD 10/18/2024 3:50 AM EDT [facility] Sodium, Whole Blood 133(L) 136 - 145 mmol/L LAB HEMATOLOGY METHOD 10/18/2024 3:50 AM EDT [facility] Potassium, Whole Blood 2.8(L) 3.6 - 4.9 mmol/L LAB HEMATOLOGY METHOD 10/18/2024 3:50 AM EDT [facility] Chloride, Whole Blood 91(L) 97 - 107 mmol/L LAB HEMATOLOGY METHOD 10/18/2024 3:50 AM EDT [facility] Glucose, Whole Blood 72(L) 74 - 99 mg/dL LAB HEMATOLOGY METHOD 10/18/2024 3:50 AM EDT [facility] Lactate, Venous, Whole Blood 0.7 0.5 - 2.2 mmol/L LAB HEMATOLOGY METHOD 10/18/2024 3:50 AM EDT [facility] Ionized Calcium, Whole Blood 4.3(L) 4.6 - 5.1 mg/dL LAB HEMATOLOGY METHOD 10/18/2024 3:50 AM EDT [facility] Blood Venous blood specimen / Unknown Venipuncture / Unknown 10/18/2024 3:38 AM EDT 10/18/2024 3:48 AM EDT Hilton Montelongo MD LAB BLOOD ORDERABLES Final Re sult Performing Organization Address [facility]/ZIP Co de Phone Number [facility] [address] [place] [address] * Phosphorus, Plasma (10/18/2024 3:38 AM EDT) Phosphorus, Plasma 3.4 2.5 - 4.5 mg/dL 10/18/2024 4:17 AM EDT [facility] Blood Venous blood specimen / Unknown Venipuncture / Unknown 10/18/2024 3:38 AM EDT 10/18/2024 3:49 AM EDT Hilton Montelongo MD LAB BLOOD ORDERABLES Final Re sult [facility] [address] [place] [address] * Magnesium (10/18/2024 3:38 AM EDT) Magnesium, Plasma 2.1 1.9 - 2.4 mg/dL 10/18/2024 4:17 AM EDT [facility] Blood Venous blood specimen / Unknown Venipuncture / Unknown 10/18/2024 3:38 AM EDT 10/18/2024 3:49 AM EDT us Hilton Montelongo MD LAB BLOOD ORDERABLES Final Re sult [facility] [address] [place] [address] * (ABNORMAL) Basic metabolic panel (10/18/2024 3:38 AM EDT) Glucose, Plasma 73(L) 74 - 99 mg/dL 10/18/2024 4:17 AM EDT [facility] BUN, Plasma 8 7 - 21 mg/dL 10/18/2024 4:17 AM EDT [facility] Creatinine, Plasma 0.66 0.60 - 1.10 mg/dL 10/18/2024 4:17 AM EDT [facility] BUN/Creatinine Ratio 12 10/18/2024 4:17 AM EDT [facility] Sodium, Plasma 133(L) 136 - 145 mmol/L 10/18/2024 4:17 AM EDT [facility] Potassium, Plasma 3.1(L) 3.6 - 4.9 mmol/L 10/18/2024 4:17 AM EDT [facility] Chloride, Plasma 92(L) 97 - 107 mmol/L 10/18/2024 4:17 AM EDT [facility] CO2, Plasma 27 22 - 29 mmol/L 10/18/2024 4:17 AM EDT [facility] Anion Gap 14 6 - 16 mmol/L 10/18/2024 4:17 AM EDT [facility] Total Calcium, Plasma 8.0(L) 8.9 - 10.2 mg/dL 10/18/2024 4:17 AM EDT [facility] eGFRcr 119.0 mL/min/1.7 3m*2 10/18/2024 4:17 AM EDT [facility] Comment:Reported eGFRcr in m L/min/1.73m2 is based the CKD-EPI 2020 equation that does not use a race coefficient. Blood Venous blood specimen / Unknown Venipuncture / Unknown 10/18/2024 3:38 AM EDT 10/18/2024 3:49 AM EDT Hilton Montelongo MD LAB BLOOD ORDERABLES Final Re sult Performing Organization Address City/[facility]/ZIP Co de Phone Number [facility] [address] [place] [address] * Bile acids, total (10/18/2024 1:12 AM EDT) BILE ACIDS, TOTAL 5 0 - 10 umol/L 10/20/2024 12:29 AM EDT [facility]) Blood Venous blood specimen / Unknown Venipuncture / Unknown 10/18/2024 1:12 AM EDT 10/18/2024 1:18 AM EDT Narrative [facility] ([facility]) - 10/20/2024 12:29 AM EDT INTERPRETIVE INFORMATION: Bile Acids, Total Reference Interval applies to fasting specimens. Performed By: [facility] [address] [place] [address] [id number] Armor Crewman: Brandon Bell MD, PhD CLIA Number: [id number] Result [facility] Hilton Montelongo MD LAB BLOOD ORDERABLES Final Re sult Performing Organization Address [facility] [place] Co de Phone Number [employer]) [address] [place] [address] * Troponin T, High Sensitivity, 2 Hour, Plasma (10/18/2024 1:12 AM EDT) Pathologist [facility] Troponin T, High Sensitivity, 2 Hour <6 <14 ng/L 10/18/2024 1:46 AM EDT [facility] Blood Venous blood specimen / Unknown Venipuncture / Unknown 10/18/2024 1:12 AM EDT 10/18/2024 1:18 AM EDT Hilton Montelongo MD LAB BLOOD ORDERABLES Final Re sult Performing Organization Address City/[facility]/ZIP Co de Phone Number [facility] [address] [place] [address] * Group A Streptococcus by PCR (10/17/2024 11:25 PM EDT) Group A Streptococcus PCR Result Not Detected Not Detected 10/18/2024 12:38 AM EDT [facility] Swab Structure of peritonsillar tissue / Unknown Non-blood Collection / Unknown 10/17/2024 11:25 PM EDT 10/17/2024 11:49 PM EDT Hilton Montelongo MD LAB MICROBIOLOGY - GENERAL OR DERABLES Final Result Performing Organization Address City/State/[facility] Co de Phone Number [facility] [address] [place] [address] * ECG Adult (10/17/2024 10:50 PM EDT) Pathologist [facility] EKG DIAGNOSIS CLASS Borderline Normal MUSE ECG Ventricular Rate 92 BPM MUSE ECG Atrial Rate 92 BPM MUSE ECG ME Interval 142 ms MUSE ECG QRSD Interval 78 ms MUSE ECG QT Interval 366 ms MUSE ECG QTC Interval 452 ms MUSE ECG P Valdez 62 degrees MUSE ECG R Valdez 45 degrees MUSE ECG T Wave Valdez 61 degrees MUSE ECG Diagnosis Sinus rhythm with premature atrial complexes with aberrant conduction MUSE ECG Diagnosis Otherwise normal ECG MUSE ECG Diagnosis MUSE ECG Diagnosis Confirmed by Amish Paz ([id number]) on 10/18/2024 8:04:52 PM MUSE ECG 10/17/2024 10:5 0 PM EDT 10/18/2024 8:04 PM EDT us Hilton Montelongo MD ECG ORDERABLES Final Result Performing Organization Address City/[facility] Co de Phone Number MUSE ECG * Magnesium (10/17/2024 10:41 PM EDT) Pathologist [facility] Magnesium, Plasma 2.2 1.9 - 2.4 mg/dL 10/17/2024 11:16 PM EDT [facility] Blood Venous blood specimen / Unknown Venipuncture / Unknown 10/17/2024 10:41 PM EDT 10/17/2024 10:45 PM EDT Hilton Montelongo MD LAB BLOOD ORDERABLES Final Re sult Performing Organization Address City/[facility]/ZIP Co de Phone Number [facility] [address] [place] [address] * Troponin T, High Sensitivity, 0 Hour Plasma, Reflex to 2 Hour (10/17/2024 10:41 PM EDT) Pathologist [facility] Troponin T, High Sensitivity, 0 Hour <6 <14 ng/L 10/17/2024 11:16 PM EDT [facility] Blood Venous blood specimen / Unknown Venipuncture / Unknown 10/17/2024 10:41 PM EDT 10/17/2024 10:45 PM EDT us Hilton Montelongo MD LAB BLOOD ORDERABLES Final Re sult Performing Organization Address [facility]/ZIP Co de Phone Number [facility] [address] [place] [address] * (ABNORMAL) Blood gas panel, venous (10/17/2024 10:41 PM EDT) Pathologist [facility] pH, Venous 7.62(HH) 7.32 - 7.43 LAB HEMATOLOGY METHOD 10/17/2024 10:47 PM EDT [facility] pCO2, Venous 31(L) 37 - 52 mmHg LAB HEMATOLOGY METHOD 10/17/2024 10:47 PM EDT [facility] pO2, Venous 185(H) 25 - 40 mmHg LAB HEMATOLOGY METHOD 10/17/2024 10:47 PM EDT [facility] SO2, Measured, Venous 100(H) 65 - 80 % LAB HEMATOLOGY METHOD 10/17/2024 10:47 PM EDT [facility] Base Excess, Venous 10.6(H) -2.0 - 3.0 mmol/L LAB HEMATOLOGY METHOD 10/17/2024 10:47 PM EDT [facility] Bicarbonate, Calculated, Venous 32(H) 22 - 26 mmol/L LAB HEMATOLOGY METHOD 10/17/2024 10:47 PM EDT [facility] Hematocrit, Whole Blood 29.4(L) 34.0 - 45.0 % LAB HEMATOLOGY METHOD 10/17/2024 10:47 PM EDT [facility] Sodium, Whole Blood 132(L) 136 - 145 mmol/L LAB HEMATOLOGY METHOD 10/17/2024 10:47 PM EDT [facility] Potassium, Whole Blood 2.3(LL) 3.6 - 4.9 mmol/L LAB HEMATOLOGY METHOD 10/17/2024 10:47 PM EDT [facility] Chloride, Whole Blood 87(L) 97 - 107 mmol/L LAB HEMATOLOGY METHOD 10/17/2024 10:47 PM EDT [facility] Glucose, Whole Blood 76 74 - 99 mg/dL LAB HEMATOLOGY METHOD 10/17/2024 10:47 PM EDT [facility] Lactate, Venous, Whole Blood 1.1 0.5 - 2.2 mmol/L LAB HEMATOLOGY METHOD 10/17/2024 10:47 PM EDT [facility] Ionized Calcium, Whole Blood 4.2(L) 4.6 - 5.1 mg/dL LAB HEMATOLOGY METHOD 10/17/2024 10:47 PM EDT [facility] Blood Venous blood specimen / Unknown Venipuncture / Unknown 10/17/2024 10:41 PM EDT 10/17/2024 10:45 PM EDT us Hilton Montelongo MD LAB BLOOD ORDERABLES Final Re sult [facility] [address] [place] [address] * (ABNORMAL) Comprehensive metabolic panel (10/17/2024 10:41 PM EDT) Glucose, Plasma 77 74 - 99 mg/dL 10/17/2024 11:16 PM EDT [facility] BUN, Plasma 9 7 - 21 mg/dL 10/17/2024 11:16 PM EDT [facility] Creatinine, Plasma 0.70 0.60 - 1.10 mg/dL 10/17/2024 11:16 PM EDT [facility] BUN/Creatinine Ratio 13 10/17/2024 11:16 PM EDT [facility] Sodium, Plasma 132(L) 136 - 145 mmol/L 10/17/2024 11:16 PM EDT [facility] Potassium, Plasma 2.5(LL) 3.6 - 4.9 mmol/L 10/17/2024 11:16 PM EDT [facility] Chloride, Plasma 88(L) 97 - 107 mmol/L 10/17/2024 11:16 PM EDT [facility] CO2, Plasma 27 22 - 29 mmol/L 10/17/2024 11:16 PM EDT [facility] Anion Gap 17(H) 6 - 16 mmol/L 10/17/2024 11:16 PM EDT [facility] Total Calcium, Plasma 8.4(L) 8.9 - 10.2 mg/dL 10/17/2024 11:16 PM EDT [facility] Total Protein 5.8(L) 6.3 - 7.9 g/dL 10/17/2024 11:16 PM EDT [facility] Albumin, Plasma 3.0(L) 3.5 - 5.2 g/dL 10/17/2024 11:16 PM EDT [facility] AST, Plasma 69(H) 10 - 35 U/L 10/17/2024 11:16 PM EDT [facility] ALT, Plasma 76(H) 10 - 35 U/L 10/17/2024 11:16 PM EDT [facility] Alkaline Phosphatase, Plasma 76 35 - 104 U/L 10/17/2024 11:16 PM EDT [facility] Total Bilirubin, Plasma 0.7 0.2 - 1.1 mg/dL 10/17/2024 11:16 PM EDT [facility] eGFRcr 117.3 mL/min/1.7 3m*2 10/17/2024 11:16 PM EDT [facility] Comment:Reported eGFRcr in m L/min/1.73m2 is based the CKD-EPI 2020 equation that does not use a race coefficient. Blood Venous blood specimen / Unknown Venipuncture / Unknown 10/17/2024 10:41 PM EDT 10/17/2024 10:45 PM EDT us Hilton Montelongo MD LAB BLOOD ORDERABLES Final Re sult [facility] [address] [place] [address] * (ABNORMAL) CBC (10/17/2024 10:41 PM EDT) WBC Count 10.63(H) 3.70 - 10.30 10*3/uL LAB HEMATOLOGY METHOD 10/17/2024 10:53 PM EDT [facility] RBC Count 3.27(L) 3.90 - 5.20 10*6/uL LAB HEMATOLOGY METHOD 10/17/2024 10:53 PM EDT [facility] HGB 9.7(L) 11.2 - 15.7 g/dL LAB HEMATOLOGY METHOD 10/17/2024 10:53 PM EDT [facility] HCT 28.7(L) 34.0 - 45.0 % LAB HEMATOLOGY METHOD 10/17/2024 10:53 PM EDT [facility] Platelet Count 185 155 - 369 10*3/uL LAB HEMATOLOGY METHOD 10/17/2024 10:53 PM EDT [facility] MCV 88 79 - 98 fL LAB HEMATOLOGY METHOD 10/17/2024 10:53 PM EDT [facility] MCH 29.7 26.0 - 32.0 pg LAB HEMATOLOGY METHOD 10/17/2024 10:53 PM EDT [facility] MCHC 33.8 30.7 - 35.5 g/dL LAB HEMATOLOGY METHOD 10/17/2024 10:53 PM EDT [facility] RDW 15.8(H) 11.5 - 14.5 % LAB HEMATOLOGY METHOD 10/17/2024 10:53 PM EDT [facility] MPV 12.3 8.8 - 12.5 fL LAB HEMATOLOGY METHOD 10/17/2024 10:53 PM EDT [facility] nRBC 0.0 <=0.0 per 100 WBCs LAB HEMATOLOGY METHOD 10/17/2024 10:53 PM EDT [facility] Blood Venous blood specimen / Unknown Venipuncture / Unknown 10/17/2024 10:41 PM EDT 10/17/2024 10:45 PM EDT us Hilton Montelongo MD LAB BLOOD ORDERABLES Final Re sult [facility] [address] [place] [address] * SARS CoV-2/COVID-19 by PCR (10/17/2024 8:50 PM EDT) [facility] SARS CoV-2/COVID-1 9 RNA PCR Result Not Detected Not Detected 10/19/2024 1:56 AM EDT [facility] Swab Nasopharyngeal structure / Unknown Non-blood Collection / Unknown 10/17/2024 8:50 PM EDT 10/17/2024 9:28 PM EDT Narrative [facility] - 10/19/2024 1:56 AM [...] MICROBIOLOGY - GENERAL OR DERABLES Final Result [facility] [address] [place] [address] * Nasopharyngeal Respiratory Panel (10/17/2024 8:50 PM EDT) [facility] Nasopharyngeal Respiratory PCR Interpretation Not Detected for all analytes Not Detected for all analytes 10/17/2024 11:23 PM EDT [facility] Swab Nasopharyngeal structure / Unknown Non-blood Collection / Unknown 10/17/2024 8:50 PM EDT 10/17/2024 9:28 PM EDT Narrative [facility] - 10/17/2024 11:23 PM [...] Respiratory PCR Panel is performed using the [id number] instrument. This test is FDA approved for use with Nasopharyngeal swabs only. This test is used for clinical purposes. It should not be regarded as investigational or for research. The [facility] Clinical [facility]biology [facility] is certified under the Clinical Laboratory Improvement Amendments of 1988 (CLIA-88) as qualified to perform high complexity clinical laboratory testing. Hilton Montelongo MD LAB MICROBIOLOGY - GENERAL OR DERABLES Final Result Performing Organization Address [facility]/ZIP Co de Phone Number [facility] [address] [place] [address] * Treponema Pallidum (Syphilis) Antibodies with Reflex to RPR and RPR Titer (Those with NO known Syphilis) (10/17/2024 7:31 PM EDT) Pathologist [facility] Syphilis Antibody (IgG+IgM) Nonreactive Nonreactive 10/17/2024 10:00 PM EDT [facility] Comment:Nonreactive. No sero logic evidence of syphilis. No follow-up necessary unless clinically indicated (e.g., early syphilis). Blood Venous blood specimen / Unknown Venipuncture / Unknown 10/17/2024 7:31 PM EDT 10/17/2024 7:44 PM EDT Hilton Montelongo MD LAB BLOOD ORDERABLES Final Re sult Performing Organization Address [facility]/ZIP Co de Phone Number [facility] [address] [place] [address] * Type and Screen (10/17/2024 7:31 PM [...] ORDERABLE S Final Result Performing Organization Address [facility] Co de Phone Number BLOOD BANK [address] [place] [address], * Troponin T, High Sensitivity, 2 Hour, Plasma (10/17/2024 6:18 PM EDT) Troponin T, High Sensitivity, 2 Hour <6 <14 ng/L 10/17/2024 7:18 PM EDT [facility] Blood Venous blood specimen / Unknown Venipuncture / Unknown 10/17/2024 6:18 PM EDT 10/17/2024 6:46 PM EDT Job N Devine GEOLOGICAL MANAGER, CNM LAB BLOOD ORDERABLES Final Result Performing Organization Address [facility] Co de Phone Number [facility] [address] [place] [address] * XR Chest 1 View (10/17/2024 4:38 [...] ECG Atrial Rate 116 BPM MUSE ECG ME Interval 140 ms MUSE ECG QRSD Interval 80 ms MUSE ECG QT Interval 324 ms MUSE ECG QTC Interval 450 ms MUSE ECG P Valdez 63 degrees MUSE ECG R Valdez 39 degrees MUSE ECG T Wave Valdez 50 degrees MUSE ECG Diagnosis Sinus tachycardia [...] - 7.1 mg/dL 10/17/2024 9:51 PM EDT [facility] Blood Venous blood specimen / Unknown Venipuncture / Unknown 10/17/2024 4:05 PM EDT 10/17/2024 4:20 PM EDT us Hilton Montelongo MD LAB BLOOD ORDERABLES Final Re sult Performing Organization Address City/[facility]/ZIP Co de Phone Number [facility] [address] [place] [address] * (ABNORMAL) Lactate dehydrogenase (10/17/2024 4:05 PM EDT) LDH, Plasma 267(H) 116 - 250 U/L 10/17/2024 9:51 PM EDT [facility] Comment:Hemolyzed, result ma y be falsely increased. Blood Venous blood specimen / Unknown Venipuncture / Unknown 10/17/2024 4:05 PM EDT 10/17/2024 4:20 PM EDT us Hilton Montelongo MD LAB BLOOD ORDERABLES Final Re sult Performing Organization Address [facility] [place]/[facility]/ZIP Co de Phone Number [facility] [address] [place] [address] * Phosphorus (10/17/2024 4:05 PM EDT) Phosphorus, Plasma 2.5 2.5 - 4.5 mg/dL 10/17/2024 5:07 PM EDT [facility] Blood Venous blood specimen / Unknown Venipuncture / Unknown 10/17/2024 4:05 PM EDT 10/17/2024 4:20 PM EDT us Hilton Montelongo MD LAB BLOOD ORDERABLES Final Re sult Performing Organization Address City/[facility]/ZIP Co de Phone Number [facility] [address] [place] [address] * (ABNORMAL) Magnesium (10/17/2024 4:05 PM EDT) Magnesium, Plasma 1.4(L) 1.9 - 2.4 mg/dL 10/17/2024 5:07 PM EDT [facility] Blood Venous blood specimen / Unknown Venipuncture / Unknown 10/17/2024 4:05 PM EDT 10/17/2024 4:20 PM EDT Hilton Montelongo MD LAB BLOOD ORDERABLES Final Re sult Performing Organization Address City/[facility]/[place] [address] * N-Terminal Probnp (10/17/2024 4:05 PM EDT) N-Terminal, PROBNP, Plasma 125 0 - 449 pg/mL 10/17/2024 5:07 PM EDT [facility] Blood Venous blood specimen / Unknown Venipuncture / Unknown 10/17/2024 4:05 PM EDT 10/17/2024 4:20 PM EDT Job Devine APRN, CNAdeline LAB BLOOD ORDERABLES Final Result Performing Organization Address [facility] [place]/[facility] [place] [address] * Troponin T, High Sensitivity, 0 Hour Plasma, Reflex to 2 Hour (10/17/2024 4:05 PM EDT) Troponin T, High Sensitivity, 0 Hour <6 <14 ng/L 10/17/2024 5:07 PM EDT [facility] Blood Venous blood specimen / Unknown Venipuncture / Unknown 10/17/2024 4:05 PM EDT 10/17/2024 4:20 PM EDT Job Devine GEOLOGICAL MANAGER, CNM LAB BLOOD ORDERABLES Final Result Performing Organization Address City/[facility]/ZIP Co de Phone Number [facility] [address] [place] [address] * (ABNORMAL) D DIMER, QUANTITATIVE (10/17/2024 4:05 PM EDT) D Dimer, Quantitative 2.33(H) <0.50 ug/mL FEU LAB COAGULATION METHOD 10/17/2024 4:47 PM EDT [facility] Blood Venous blood specimen / Unknown Venipuncture / Unknown 10/17/2024 4:05 PM EDT 10/17/2024 4:19 PM EDT Narrative [facility] - 10/17/2024 4:47 PM [...] APRN, CNM LAB BLOOD ORDERABLES Final Result [facility] [address] [place] [address] * (ABNORMAL) Comprehensive metabolic panel (10/17/2024 4:05 PM EDT) Glucose, Plasma 78 74 - 99 mg/dL 10/17/2024 5:07 PM EDT [facility] BUN, Plasma 9 7 - 21 mg/dL 10/17/2024 5:07 PM EDT [facility] Creatinine, Plasma 0.74 0.60 - 1.10 mg/dL 10/17/2024 5:07 PM EDT [facility] BUN/Creatinine Ratio 12 10/17/2024 5:07 PM EDT [facility] Sodium, Plasma 136 136 - 145 mmol/L 10/17/2024 5:07 PM EDT [facility] Potassium, Plasma 2.5(LL) 3.6 - 4.9 mmol/L 10/17/2024 5:07 PM EDT [facility] Chloride, Plasma 87(L) 97 - 107 mmol/L 10/17/2024 5:07 PM EDT [facility] CO2, Plasma 32(H) 22 - 29 mmol/L 10/17/2024 5:07 PM EDT [facility] Anion Gap 17(H) 6 - 16 mmol/L 10/17/2024 5:07 PM EDT [facility] Total Calcium, Plasma 9.0 8.9 - 10.2 mg/dL 10/17/2024 5:07 PM EDT [facility] Total Protein 6.5 6.3 - 7.9 g/dL 10/17/2024 5:07 PM EDT [facility] Albumin, Plasma 3.1(L) 3.5 - 5.2 g/dL 10/17/2024 5:07 PM EDT [facility] AST, Plasma 82(H) 10 - 35 U/L 10/17/2024 5:07 PM EDT [facility] ALT, Plasma 93(H) 10 - 35 U/L 10/17/2024 5:07 PM EDT [facility] Alkaline Phosphatase, Plasma 83 35 - 104 U/L 10/17/2024 5:07 PM EDT [facility] Total Bilirubin, Plasma 0.6 0.2 - 1.1 mg/dL 10/17/2024 5:07 PM EDT [facility] eGFRcr 109.7 mL/min/1.7 3m*2 10/17/2024 5:07 PM EDT [facility] Comment:Reported eGFRcr in m L/min/1.73m2 is based the CKD-EPI 2020 equation that does not use a race coefficient. Blood Venous blood specimen / Unknown Venipuncture / Unknown 10/17/2024 4:05 PM EDT 10/17/2024 4:20 PM EDT Job Devine GEOLOGICAL MANAGER, CNM LAB BLOOD ORDERABLES Final Result [facility] [address] [place] [address] * (ABNORMAL) CBC and Differential (10/17/2024 4:05 PM EDT) WBC Count 9.54 3.70 - 10.30 10*3/uL LAB HEMATOLOGY METHOD 10/17/2024 4:41 PM EDT [facility] RBC Count 3.40(L) 3.90 - 5.20 10*6/uL LAB HEMATOLOGY METHOD 10/17/2024 4:41 PM EDT [facility] HGB 10.2(L) 11.2 - 15.7 g/dL LAB HEMATOLOGY METHOD 10/17/2024 4:41 PM EDT [facility] HCT 29.7(L) 34.0 - 45.0 % LAB HEMATOLOGY METHOD 10/17/2024 4:41 PM EDT [facility] Platelet Count 177 155 - 369 10*3/uL LAB HEMATOLOGY METHOD 10/17/2024 4:41 PM EDT [facility] MCV 87 79 - 98 fL LAB HEMATOLOGY METHOD 10/17/2024 4:41 PM EDT [facility] MCH 30.0 26.0 - 32.0 pg LAB HEMATOLOGY METHOD 10/17/2024 4:41 PM EDT [facility] MCHC 34.3 30.7 - 35.5 g/dL LAB HEMATOLOGY METHOD 10/17/2024 4:41 PM EDT [facility] RDW 15.9(H) 11.5 - 14.5 % LAB HEMATOLOGY METHOD 10/17/2024 4:41 PM EDT [facility] MPV 12.1 8.8 - 12.5 fL LAB HEMATOLOGY METHOD 10/17/2024 4:41 PM EDT [facility] nRBC 0.0 <=0.0 per 100 WBCs LAB HEMATOLOGY METHOD 10/17/2024 4:41 PM EDT [facility] Differential Type Automated LAB HEMATOLOGY METHOD 10/17/2024 4:41 PM EDT [facility] Neutrophils % 63 % LAB HEMATOLOGY METHOD 10/17/2024 4:41 PM EDT [facility] Lymphocytes % 24 % LAB HEMATOLOGY METHOD 10/17/2024 4:41 PM EDT [facility] Monocytes % 11 % LAB HEMATOLOGY METHOD 10/17/2024 4:41 PM EDT [facility] Eosinophils % 1 % LAB HEMATOLOGY METHOD 10/17/2024 4:41 PM EDT [facility] Basophils % 0 % LAB HEMATOLOGY METHOD 10/17/2024 4:41 PM EDT [facility] Immature Granulocytes % 1 % LAB HEMATOLOGY METHOD 10/17/2024 4:41 PM EDT [facility] Neutrophils Absolute 6.06 1.60 - 6.10 10*3/uL LAB HEMATOLOGY METHOD 10/17/2024 4:41 PM EDT [facility] Lymphocytes Absolute 2.31 1.20 - 3.90 10*3/uL LAB HEMATOLOGY METHOD 10/17/2024 4:41 PM EDT [facility] Monocytes Absolute 1.05(H) 0.30 - 0.90 10*3/uL LAB HEMATOLOGY METHOD 10/17/2024 4:41 PM EDT [facility] Eosinophils Absolute 0.06 0.00 - 0.50 10*3/uL LAB HEMATOLOGY METHOD 10/17/2024 4:41 PM EDT [facility] Basophils Absolute 0.01 0.00 - 0.10 10*3/uL LAB HEMATOLOGY METHOD 10/17/2024 4:41 PM EDT [facility] Immature Granulocytes Absolute 0.05 0.00 - 0.06 10*3/uL LAB HEMATOLOGY METHOD 10/17/2024 4:41 PM EDT [facility] Blood Venous blood specimen / Unknown Venipuncture / Unknown 10/17/2024 4:05 PM EDT 10/17/2024 4:24 PM EDT [facility]ative [facility] 10/17/2024 4:41 PM EDT Therapeutic decision making should be based on absolute values, rather than percentages. Job Devine GEOLOGICAL MANAGER, CNM LAB BLOOD ORDERABLES Final Result Performing Organization Address City/State/[facility] Co de Phone Number [facility] [address] [place] [address] documented in this encounter Visit Diagnoses Diagnosis [...] Continuous, Starting on Mon10/18/24 at 1030, Until [place] 10/20/24 at 1216, Routine New Bag 10/18/2024 10:25 AM EDT 75 mL/hr 75 mL /hr famotidine (Pepcid) tablet 20 mg 20 mg, Oral, 2 times daily PRN, Starting on Mon10/17/24 at 1911, Until 10/20/24 at 1216, Routine, Pre-Delivery, indigestion, heartburn, or inj IV famotidine PF (Pepcid) injection 20 mg 20 mg, Intravenous, 2 times daily PRN, Starting on [place] 10/17/24 at 1911, Until [place] 10/20/24 at 1216, Routine, Pre-Delivery, indigestion, heartburn, [...] Oral, Every 6 hours PRN, Starting on [facility] 10/17/24 at 1911, Until Mon10/20/24 at 1216, Routine, Pre-Delivery, nausea, vomiting ondansetron (Zofran) injection 4 mg 4 mg, Intravenous, Every 6 hours PRN, Starting on [place] 10/17/24 at 1911, Until Mon10/20/24 at 1216, Routine, Pre-Delivery, vomiting, nausea ondansetron ODT (Zofran-ODT) disintegrating tablet 4 mg 4 mg, Oral, Every 6 hours PRN, Starting on [facility] 10/17/24 at 1911, Until Mon10/20/24 at 1216, Routine, Pre-Delivery, nausea, vomiting pantoprazole (Protonix) EC tablet 40 mg 40 mg, Oral, Daily, First dose on [facility] 10/19/24 at 0200, Until Discontinued, Routine Given 10/19/2024 1:21 AM EDT 40 mg pantoprazole (Protonix) injection 40 mg 40 mg, Intravenous, Daily, First dose on [place] 10/20/24 at 0900, Until Discontinued, Routine potassium [...] Starting on [place] 10/17/24 at 2110, Until [place] 10/20/24 at 1216, Routine, nausea, vomiting Given 10/19/2024 1:21 AM EDT 12.5 mg sodium chloride 0.9 % flush 3 mL 3 mL, Intravenous, As needed, Starting on Mon10/17/24 at 1909, Until [place] 10/20/24 at 1216, Routine, Pre-Delivery, line care, 3 mL flush for PERIPHERAL IV CARE ONLY. sodium citrate-citric acid (Bicitra) 500-334 MG/5ML solution 30 mL 30 mL, Oral, Once in OR, 1 dose, Starting on [place] 10/17/24 at 2040, Until [place] 10/20/24 at 1216, Routine, Pre-Delivery sodium phosphates [...] Starting on [place] 10/17/24 at 2040, Until [place] 10/20/24 at 1216, Routine, Pre-Delivery, per MD [...] Starting on [place] 10/17/24 at 1911, Until [place] 10/20/24 at 1216, Routine, Pre-Delivery, indigestion, heartburn, or tablet po Group 2: ondansetron ODT (Zofran-ODT) disintegrating tablet 4 mgJump to med 4 mg, Oral, Every 6 hours PRN, Starting on [place] 10/17/24 at 1911, Until [place] 10/20/24 at 1216, Routine, Pre-Delivery, nausea, vomiting Or ondansetron (Zofran) injection 4 mgJump to med 4 mg, Intravenous, Every 6 hours PRN, Starting on [place] 10/17/24 at 1911, Until [place] 10/20/24 at 1216, Routine, Pre-Delivery, vomiting, nausea Or ondansetron (Zofran) 4 MG/5ML solution 4 mgJump to med 4 mg, Oral, Every 6 hours PRN, Starting on [facility] 10/17/24 at 1911, Until [place] 10/20/24 at 1216, Routine, Pre-Delivery, nausea, vomiting Group 3: Insert peripheral IV (CANCELED) Once, On [place] 10/17/24 at 1910, For 1 occurrence, Pre-Delivery And Saline lock IV (CANCELED) Once, On [place] 10/17/24 at 1910, For 1 occurrence, Pre-Delivery And sodium chloride 0.9 % flush 3 mLJump to med 3 mL, Intravenous, As needed, Starting on [facility] 10/17/24 at 1909, Until [place] 10/20/24 at 1216, Routine, Pre-Delivery, line care, [...] documented as of this encounter Care Teams [employer] Relationship Specialty Start Date End Date Norma Friedman APRN [address] [place] [address] PCP - General 09/23/24 Lizz Trinh, RN [facility] Registered Nurse Cardiology 09/26/24 documented as of this encounter
--- OUTSIDE RECORDS SUMMARY | 2024-10-19 01:03 | XMS_ITS | Encounter Summary ---
Author Organization Healthcare Address [address] [place] [address] Care Team Providers Care Manager Marketing Communications Name Role Phone jennyfer Kadedev Coy APRN Primary Care Provider +1- [phone] Lizz Trinh RN Unavailable Unavailable Reason for Visit * Auth/Cert (Routine) Specialty Diagnoses / Procedures Referred By Tarik t Referred To Contact Diagnoses Hypokalemia Electrolyte abnormality Hilton Montelongo MD [address] [address] Phone: tel: fax: [facility] Delivery [address] [place] [address] Phone: tel: fax: Referral ID Status Reason Start Date Expiration Date Visits Re quested Visits Authorized [id number] 1 1 Encounter Details Date Type Department Care Team (Late st Contact Info) Description 10/19/2024 1:03 AM EDT Anesthesia Event [facility] [address] [place] [address] Everett Farrar MD [address] [place] [address] Anesthesia Record Procedure Summary Procedure Name Responsible [...] more drinks on one occasion? 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 No relevant active problems [...] Encounters Date Type Department Care Team ([facility] st Contact Info) Description 10/31/2024 Hospital Encounter [facility] Labor [facility] Delivery [address] [place] [address] 11/21/2024 11:15 AM EDT Visit Medical Office Building Obstetrics and Gynecology [address] [facility], [address] [place] [address] Nneka Gipson MD [address] [place] [address] 12/25/2024 1:00 PM EST Office Visit Professional [facility] Nephrology, Bone & Mineral Metabolism [address] [facility], [address] [place] [address] documented as of this encounter Visit Diagnoses [...] as of this encounter Care Teams Manager Marketing Communications Relationship Specialty Start Date End Date Norma Friedman APRN [address] [place], [place] [id number] PCP - General 09/23/24 Lizz Trinh, RN [facility] Registered Nurse Cardiology 09/26/24 documented as of this encounter
--- OUTSIDE RECORDS SUMMARY | 2024-10-24 08:00 | XMS_ITS | Encounter Summary ---
Author Organization Healthcare Address [address] [place] [address] Care Team Providers Care Research Engineer Name Role Phone Norma Friedman SENIOR OUTSIDE SALES REPRESENTATIVE Primary Care Provider [phone] Lizz Trinh RN Unavailable Unavailable Reason for Visit * Reason Comments Edema * Consultation (Routine) - Closed Specialty Diagnoses / Procedures Referred By Tarik t Referred To Contact Diagnoses Palpitations Syncope and collapse Nneka Block MD [address] [place] [address] Phone: tel: fax: Referral ID Status Reason Start Date Expiration Date Visits Re quested Visits Authorized [id number] Closed 09/26/2024 03/28/2026 1 1 Encounter Details Date Type Department Care Team (Late st Contact Info) Description 10/24/2024 8:00 AM EDT Office Visit [facility] Dolph Blackwell [address] [facility], [address] [place] [address] Nneka Block MD [address] [place] [address] Palpitations (Primary Dx) Social History Tobacco Use Types [...] more drinks on one occasion? Never 09/23/2024 [place] Depression Scale Answer Date Recorded [place] Depression Scale Total 0 09/23/2024 The thought [...] Sign Reading Time Taken Comments Blood Pressure 111/76 10/24/2024 7:48 AM EDT Pulse 70 10/24/2024 7:48 AM EDT Temperature - - Respiratory Rate - - Oxygen Saturation 100% 10/24/2024 7:48 AM EDT Inhaled Oxygen Concentration - - Weight 72.9 kg (160 lb 11.5 oz) 10/24/2024 7:48 AM EDT Height 162.6 cm (5' 4 ) 10/24/2024 7:48 AM EDT Body Mass Index 27.59 10/24/2024 7:48 AM EDT documented in this encounter Functional [...] little energy Not at all 7:52 AM Nadine Mayo Poor appetite or overeating Not at all 10/24/2024 7: 52 AM Nadine Mayo Feeling bad about yourself - or that you are a failure or have let yourself or your family down Not at all 10/24/2024 7:52 AM Robina Mayo Trouble concentrating on thi ngs, such as reading the newspaper or watching television Not at all 10/24/2024 7:52 AM Nadine Mayo Moving or speaking so slowly that other people could have noticed? Or the opposite - being so fidgety or restless that you have been moving around a lot more than usual. Not at all 10/24/2024 7:52 AM Nadine Mayo Thoughts that you would be b hailey off or hurting yourself in some way Not at all 10/24/2024 7:52 AM Nadine Mayo Patient Health Questionnaire-9 Score 0 10/07 7:52 AM Nadine Mayo * How difficult have these problems made it for you to do your work, take care of things at home, or get along with other people? Answer Date of Assessment Author Not difficult at all 10/24/2024 7:52 AM LUKAST Nadine Munroe documented as of this encounter Miscellaneous Notes * Caleb Leonardo - Lexy Felix RN - 10/24/2024 8:16 AM EDT Images from the original note were not included. 206 Heart Healthy Diet Understanding Fats, MyPlate, and the DASH Plan The facts on cholesterol Cholesterol is a fat like substance that supports the production of certain hormones. It is found in all foods of animal origin. We not only eat cholesterol, but we also produce it in our liver. Although cholesterol is important, a high blood cholesterol level can be harmful. An elevated cholesterol level can lead to atherosclerosis, which is when arteries become thickened or hard due to plaque buildup in an artery's inner lining. Atherosclerosis can lead to heart disease, strokes, and peripheral vascular disease. Certain risk factors such as an elevated cholesterol level, hypertension, cigarette smoking, lack of exercise, obesity, and a family history of heart disease increase one?s risk of developing atherosclerosis and heart disease. However, most of these risk factors can be controlled. The following dietary guidelines provide information on how to eat properly in order to reduce your risk of developing atherosclerosis. The facts on fats Polyunsaturated: These are considered beneficial fats in limited quantity. Main sources are safflower, sunflower, corn, soybean, and cottonseed oil. Usually liquid at room temperature, but start to turn solid when chilled. They can help to lower the level of blood cholesterol. Monounsaturated Fats: These are considered beneficial fat. Main sources are canola, olive, and peanut oils. They have been demonstrated to reduce the level of blood cholesterol. Saturated Fats: These fats raise blood cholesterol levels. These fats usually fats come from animalfoods, but some vegetable oils such as coconut, palm kernel, and palm oils are saturated. Hydrogenated Fats (also called trans fats): These are considered saturated fats. They are chemically changed from liquid fat to solid fat and can be categorized as partially hydrogenated or hydrogenated. Hydrogenated fats resemble saturated fats and should be avoided. Examples include margarines, shortenings, and regular peanut butter (when liquid oil is not the first ingredient). Guidelines: ? Reduce saturated fat and trans fat intake. ? Choose polyunsaturated and monounsaturated fats in place of saturated fats or trans fats, as these are considered healthy fat. ? Limit sodium intake. ? Increase intake of fiber and complex carbohydrates such as vegetables, fruits, dried beans and peas, and whole grain cereals and breads. Milk and milk products Choose: Milk and milk products with 1% or less milk fat: ? Skim (liquid, powdered or evaporated) ? ?? and 1% milk ? Skim buttermilk ? Low fat buttermilk ? Non-fat yogurt and frozen dessert ? Frozen low-fat yogurt ? Ice milk Low fat cheese containing 3 gms of fat or less per ounce: ? Fleming?s cheese ? Christensen?s cheese ? Part skim mozzarella cheese ? Ricotta cheese ? Low-fat cottage cheese ? Dry curd cottage cheese Always try to buy low-fat dairy products when you can, and always read the labels! Avoid: Milk and milk beverages as listed: ? 2% milk ? Whole milk ? Chocolate milk and chocolate drinks ? Evaporated or condensed whole milk ? Malted milk ? Milkshakes ? Eggnog Milk products as listed: ? Regular Cream ? Sour cream ? Half and half cream ? Whipped topping containing coconut or palm oil Cheeses containing more than 5 grams of fat per ounce: ? Cream cheese ? Creamed cottage cheese ? Natural and processed cheeses such as Chinese, blue, mozzarella, and Kuwaiti Meat and protein substitutes Special instructions: ? Trim excess fat prior to cooking. ? Remove skin of chicken prior to cooking. ? Choose poultry and fish more often than red meat. Red meat includes beef, pork, ramesh, and veal. When you do eat red meat, choose leaner cuts when possible, such as lean ground beef (93/7, 90/10, 85/15), etc. ? Skim the fat from meat juices before adding to stews, soups, and gravy. ? Chilling the meat juices will cause the fat to harden for easier removal. ? To extend meat, use as part of a casserole or mixed with vegetables, rice, or pasta. Choose: ? Fish ? Shellfish ? Water - packed canned tuna or salmon ? Poultry without skin ? Beef and pork, lean cuts ? Veal ? Lentils ? Legumes ? Dried beans and peas ? Egg substitute ? Dried or chipped beef ? Luncheon meats with less than 3 grams fat per ounce ? Eggs ? Ramesh lean cuts ? Natural peanut butter ? Soy and texturized protein Avoid: ? Regular ground beef ? Marbled prime grade and fatty meats ? Spare ribs ? Peng ? Hot dogs ? Sausages ? High fat luncheon meat ? Cold cuts ? Fatty corned beef ? Goose ? Duck ? Poultry skin ? Fish canned in oil or fried ? Dried beans prepared with salt pork ? Caviar ? Organ meats (heart, liver, brains, kidney) ? Sweet breads ? Commercially fried foods ? Canned or frozen meats with gravy or sauces ? Frozen packaged convenience entrees containing more than 10 grams fat per serving ? Other frozen or packaged foods containing more than 3 grams fat per serving Breads, cereals, and grains Choose: ? Oat bran ? Oat meal ? Whole wheat ? Swengel ? Pumpernickel ? White ? Raisin ? Crackers prepared without butter, lard, coconut, or palm oil ? Dry cereals that contain allowed fats ? Rice and pasta prepared with allowed fats ? Egg noodles (limit to ?? cup per day) ? Citizen Of [place] ? Pakistani ? Mohawk muffins ? Pancakes, waffles, biscuits, and cornbread made with allowed ingredients ? Flat bread ? Yemi crackers ? Matzoh crackers ? Whole grain or enriched cereals prepared with allowed oils ? Wheat germ Avoid: ? Egg or cheese bread ? Butter rolls ? Commercially prepared products: biscuits, muffins, sweet rolls, cornbread, pancakes and waffles, bulgarian toast, croissants ? Noodles ? Cheese crackers ? Flavored crackers prepared with saturated fats ? Any cereal prepared with saturated fat ? Taiwanese noodles ? Rice and pasta prepared with eggs, cream, or high fat cheese Fruits Choose: ? Any fresh, frozen, canned, or dried fruit or juice ? Avocado Vegetables Choose: ? Any fresh, frozen, or canned vegetables ? Potatoes prepared with allowed fat ? Olives (limit to 10 small or 5 large per day) Avoid: ? Buttered, creamed, or fried vegetables ? Vplp-y-jhuzm, commercially made ? Vegetables prepared in a cheese sauce Soups Choose: ? Bouillon and clear broth ? Fat free vegetable soup ? Dehydrated soups made with allowed fats Avoid: ? Creamed soups ? Soups made with whole milk, cream, butter, or meat fat Drinks Choose: ? Coffee ? Tea ? Carbonated beverages (If drinking soda, choose the diet version) ? Fruit drinks ? Fruit and vegetable juice ? Hot chocolate made from cocoa, skim milk, and allowed oils Avoid: ? Beverages with cream ? Commercial hot chocolate and chocolate drinks ? Eggnog ? Milkshakes ? Alcohol (except with physician?s approval) Fats Special Instructions: Including healthy fats as part of our diets is essential to giving our bodiesenergy, supporting cell function, protecting our organs, and keeping our bodies warm. They also help our bodies to absorb some nutrients and produce important hormones. There are 9 calories in every gram of fat we eat, regardless of what type of fat it is. Some foods are higher in fat than others, such as nuts, mayonnaise, salad dressings, sandwich spreads, cooking oils, etc. When eating these foods that are higher in fat, it is important to be mindful of their serving sizes. For example, a serving of nuts is considered to be a small handful or 1.5 ounces of whole nuts, or 2 tbsp of nut butter. Some examples of these foods higher in fat and their serving sizes are listed below: ? Nuts: The [employer] Heart Association recommends including 5 servings of nuts per week as part of a healthy diet. Remember to count the hidden fats in bakery products and snack foods, fat used in cooking, or on vegetables and bread. o Almonds: 20-23 almonds, or ?? cup o Hazelnuts: ~21 hazelnuts, or ?? cup o Peanuts: ~28 shelled peanuts (i.e., not in the shell), or ?? cup o Pecans: ~15-19 pecan halves, or ?? cup o Pistachios:49 kernels of pistachio nut, or ?? cup ? Walnuts: 14 walnut halves, or ?? cup ? Nut butters, such as peanut butter: 2 tablespoons ? Mayonnaise and sandwich spreads: 1 tablespoon ? Reduced-calorie salad dressings: 2 tablespoons ? Cooking oils, such as olive oil, butter, canola oil, avocado oil, etc.: 1 tablespoon o The Chinese Heart Association recommends limiting oils to 3 tablespoons, or 9 teaspoons, per day. Choose: ? Liquid vegetable oils (canola, corn, cottonseed, peanut, olive, safflower, sunflower, soybean) ? Margarines with no trans fat ? Non-stick cooking sprays as desired ? Butter imitations as desired ? Commercial salad dressings prepared without cream or cheese ? Mayonnaise Avoid: ? Palm oil ? Coconut oil ? Butter ? Lard ? Salt pork ? Peng ? Meat drippings ? Gravies and cream sauces unless made with allowed fat and/or skim milk ? Sweet and sour milk ? Whipped toppings ? Artificial whipping cream ? Half and half cream ? Hydrogenated shortening ? Salad dressings prepared from unknown or undesirable oils ? Blue cheese salad dressing ? Margarines with first ingredient listed as a hydrogenated oil ? Filberts ? Cashews ? Macadamia nuts Sweets, desserts, and snacks Choose: ? Fresh fruit ? Dried fruits ? Fruit ices ? Sherbet ? Gelatin ? Fruit whips ? Meringues ? Animal crackers ? Fig bars ? Javy food cake ? Cakes, pies, cookies, and frostings prepared with allowed ingredients ? Sorbet ? Ice milk ? De Berry ? Gum drops ? Jelly beans ? Hard candy ? Marshmallows ? Plain sugar ? Mints ? Jam and jelly ? Honey and syrups ? Pretzels ? Popcorn prepared with allowed oils ? Low fat frozen yogurt ? Popsicles Avoid: ? Coconut ? Chocolate ? Commercial cakes, pies, cookies, and ice cream ? Desserts prepared with whole milk, saturated fats, cheese, and/or egg yolks ? Tonalea chips ? Potato chips and other snack chip ? Commercial and microwave popcorn prepared with undesirable oils ? Coffee damian (unless made with polyunsaturated fats) Understanding USDA MyPlate The USDA (US Department of Agriculture) has guidelines to help you make healthy food choices. Theseare called MyPlate. MyPlate shows the food groups that make up healthy meals using the image of a place setting. Before you eat, think about the healthiest choices for what to put onto your plate or into your cup or bowl. To learn more about building a healthy plate, visit www.choosemyplate.gov. The Food Groups ? Fruits: Any fruit or 100% fruit juice counts as part of the Fruit Group. Fruits may be fresh, canned, frozen, or dried, and may be whole, cut-up, or pureed. Make half your plate fruits and vegetables. ? Vegetables: Any vegetable or 100% vegetable juice counts as a member of the Vegetable Group. Vegetables may be fresh, frozen, canned, or dried. They can be served raw or cooked and may be whole, cut-up, or mashed. Make half your plate fruits and vegetables. ? Grains: All foods made from grains are part of the Grains Group. These include wheat, rice, oats,cornmeal, and barley such as bread, pasta, oatmeal, cereal, tortillas, and grits. Grains should be no more than a quarter of your plate. At least half of your grains should be whole grains. ? Protein: This group includes meat, poultry, seafood, beans and peas, eggs, processed soy products(like tofu), nuts (including nut butters), and seeds. Make protein choices no more than a quarter of your plate. Meat and poultry choices should be lean or low fat. ? Dairy: All fluid milk products and foods made from milk that contain calcium, like yogurt and cheese are part of the Dairy Group. (Foods that have little calcium, such as cream, butter, and cream cheese, are not part of the group.) Most dairy choices should be low-fat or fat-free. ? Oils: These are fats that are liquid at room temperature. They include canola, corn, olive, soybean, and sunflower oil. Foods that are mainly oil include mayonnaise, certain salad dressings, and soft margarines. You should have only 5 to 7 teaspoons of oils a day. You probably already get this much from the food you eat. Use NCRer to Help Build Your Meals The [employer]ema LabsTracker can help you plan and track your meals and activity. You can look up individual foods to see or compare their nutritional value. You can get guidelines for what and how much you should eat. You can compare your food choices. And you can assess personal physical activities and see ways you can improve. Go to www.appEatITmyplate.gov/IPP of Americatracker/. Eating Heart-Healthy Food: Using the DASH Plan Eating for your heart doesn?t have to be hard or boring. You just need to know how to make healthier choices. The DASH eating plan has been developed to help you do just that. DASH stands for DietaryApproaches to Stop Hypertension. It is a plan that has been proven to be healthier for your heart and to lower your risk for high blood pressure. It can also help lower your risk for cancer, heart disease, osteoporosis, and diabetes. Choosing from Each Food Group Choose foods from each of the food groups below each day. Try to get the recommended number of servings for each food group. The serving numbers are based on a diet of 2,000 calories a day. Talk to your doctor if you?re unsure about your calorie needs. Along with getting the correct servings, the DASH plan also recommends a sodium intake less than 2,300 mg per day. Grains Servings: 6-8 a day A serving is: ? 1 slice bread ? 1 ounce dry cereal ? Half a cup cooked rice, pasta or cereal Best choices: Whole grains and any grains high in fiber. Vegetables Servings: 4-5 a day A serving is: ? 1 cup raw leafy vegetable ? Half a cup cut-up raw or cooked vegetable ? Half a cup vegetable juice Best choices: Fresh or frozen vegetables prepared without added salt or fat. Fruits Servings: 4-5 a day A serving is: ? 1 medium fruit ? One-quarter cup dried fruit ? Half a cup fresh, frozen, or canned fruit ? Half a cup of 100% fruit juices Best choices: A variety of fresh fruits of different colors. Whole fruits are a better choice than fruit juices. Low-fat or Fat-free Dairy Servings: 2-3 a day A serving is: ? 1 cup milk ? 1 cup yogurt ? One and a half ounces cheese Best choices: Skim or 1% milk, low-fat or fat-free yogurt or buttermilk, and low-fat cheeses. Lean Meats, Poultry, Fish Servings: 6 or fewer a day A serving is: ? 1 ounce cooked meats, poultry, or fish ? 1 egg Best choices: Lean poultry and fish. Trim away visible fat. Broil, grill, roast, or boil instead offrying. Remove skin from poultry before eating. Limit how much red meat you eat. Nuts, Seeds, Beans Servings: 4-5 a week A serving is: ? One-third cup nuts (one and a half ounces) ? 2 tablespoons nut butter or seeds ? Half a cup cooked dry beans or legumes Best choices: ?Dry roasted? nuts with no salt added, lentils, kidney beans, garbanzo beans, and whole watson beans. Fats and Oils Servings: 2-3 a day A serving is: ? 1 teaspoon vegetable oil ? 1 teaspoon soft margarine ? 1 tablespoon mayonnaise ? 2 tablespoons salad dressing Best choices: Nut and vegetable oils (nontropical vegetable oils), such as olive and canola oil. Sweets Servings: 5 a week or fewer A serving is: ? 1 tablespoon sugar, maple syrup, or honey ? 1 tablespoon jam or jelly ? 1 half-ounce jelly beans (about 15) ? 1 cup lemonade Best choices: Dried fruit can be a satisfying sweet. Choose low-fat sweets. And watch your serving sizes! For more on the DASH eating plan, visit: www.nhlbi.nih.gov/health/health-topics/topics/dash * Caleb Leonardo - Lexy Felix RN - 10/24/2024 8:16 AM EDT Images from the original note were not included. [address] Aerobic Exercise for a Healthy Heart Exercise is a lot more than an energy booster and a stress reliever. It also strengthens your heartmuscle, lowers your blood pressure and cholesterol, and castrejon calories. It can also improve your resting muscle tone and your mood. Remember, some activity is better than none. Choose an aerobic activity Choose an activity that makes your heart and lungs work harder than they do when you rest or walk normally. This aerobic exercise can improve the way your heart and other muscles use oxygen. Make it fun by exercising with a friend and choosing an activity you enjoy. Here are some ideas: ? Walking ? Swimming ? Biking ? Stair climbing ? Dancing ? Jogging ? Gardening ? Tennis or pickleball Exercise regularly If you haven?t been exercising regularly, get your health care provider?s okay first. Then start slowly. Here are some tips: ? Start exercising 3 times a week for 5 to 10 minutes at a time. ? When you feel comfortable, add a few minutes each session. ? Slowly build up to exercising 3 or 4 times each week. Each session should last for about 40 minutes. It should include moderate- to vigorous-intensity physical activity. This helps lower blood pressure and cholesterol. Even if you can't meet this goal, moving more and sitting less still has health benefits. It is a good idea to spread out your aerobic activity during the week. ? Your goal should be one of the following: o At least 30 minutes of moderate-intensity aerobic activity at least 5 days per week, for a total of 150 minutes, OR o At least 25 minutes of vigorous aerobic activity at least 3 days per week, for a total of 75 minutes. ? If you have been given nitroglycerin, always carry it when you exercise. ? If you get chest pain (angina) when you?re exercising, stop what you?re doing. Take your nitroglycerin, and call your health care provider. Last Reviewed Date: 2024 00:00:00 ?? 1393-1410 The [employer]. All rights reserved. This information is not intended as a substitute for professional medical care. Always follow your healthcare professional's instructions. * Patient Instructions - Lexy Felix RN - 10/24/2024 8:00 AM EDT - For any questions or concerns, please contact Dr. Block's nurse, Lexy [phone]. * Progress Notes - Nneka Block MD - 10/24/2024 8:00 AM EDT [facility] Problem List #Hypomagnesium and Hypokalemia -- PICC line for infusions #PACs and PVCs # HPI Whitney Presley is a 34 [...] She is drinking water with liquid IV. Whintey states prior deliveries she was on telemetry due to low potassium and needing IV potassium. Interval History Whitney was recently hospitalized. She was on monitor showing PACs and PVCs. She saw Nephrology, Gastroenterology, and Cardiology while inpatient. She was on monitor during the hosptialization. She has not demonstrated any other arrhythmias. She is requiring high doses of potassium and magnesium at this time. Whitney would like to deliver locally. She will be seeing [facility] today as well. Whitney denies chest pain, pressure, lower extremity swelling, or LOC. She continues to have the palpitations. She states she has gained 12 lbs lately. ROS A 10 point ROS performed with pertinent in HPI. Medical History[1] Surgical History[2] Social History[3] Family History[4] Vitals Visit Vitals BP 111/76 (BP Location: Left arm, Patient Position: Sitting, BP Cuff Size: Adult) Pulse 70 Ht 1.626 m (5' 4 ) Wt 72.9 kg (160 lb 11.5 oz) SpO2 100% BMI 27.59 kg/m?? OB Status Smoking Status Never BSA 1.81 m?? Physical Exam Physical Exam Vitals reviewed. [...] Status: She is alert. Diagnostic Testing ECG Sinus rhythm with frequent premature ventricular complexes and premature atrial complexes ECHO ECHO 10/18/2024 Left Ventricle: The left ventricle is normal [...] is no recent study available for direct [id number] comparison. ECHO 09/20/2024 ([facility]) (personally reviewed) Normal LV size and function. LVEF >55%. Normal RV size and function. Trileaflet aortic valve. No aortic stenosis or regurgitation. Grossly normal mitral valve. Mild mitral regurgitation. No mitral stenosis. Grossly normal tricuspid valve. Mild tricuspid regurgitation. Unable to estimate RVSP. Pulmonic valve is not well visualized. No pulmonic stenosis or regurgitation. Heart Monitor 09/26/2024 PHYSICIAN COMMENTS: Predominant rhythm is sinus rhythm. Occasional premature atrial and rare premature ventricular complexes were recorded during the monitoring period. No malignant cardiac rhythms were recorded during the monitoring period. Triggered events were not associated with clinical arrhythmias (all during sinus rhythm). Assessment/Plan Whitney is a 34 y.o. with a history of GERD, ovarian cysts, with history of low potassium coming in for follow up. Whitney has normal HR and BP in clinic today. Monitor showed PACs and PVCs and no malignant cardiac rhythms. She was recently hospitalized on telemetry and had PACs and PVCs. These extra beats are dueto her abnormal electrolytes. Discussed management of these is replacement of potassium and magnesium which she is doing with oral and PICC line infusions. Discussed that with delivery would recommend telemetry during delivery and 24 hours due to risk of her electrolytes dropping while inpatient. Due to her swelling in legs will check BNP and troponin today - this is normal and her symptoms arerelated to . Whitney is planning to follow up with Nephrology and Gastroenterology after delivery for further work up. Follow up as needed with Cardiology - if she continues to have palpitations will call and set up appointment . Nneka Block MD Primary Ep Technologist: Umair Sandoval MFM: Nancy Due Date: Estimated Date of Delivery: 12/01/24 CARPREG Score: 0 Modified WHO Group: I Cardiac Diagnosis: PACs and PVCs Anesthesia Consult Recommended: No Telemetry: If Yes: During labor and 24 hours Assisted Second Stage: No Echo 48 hours post-: No Special recommendations: No Pre-Admit: No Cardiac Medications: No Anticoagulation: No Cardiology Consult on Admission: No Location of delivery: TBD Recent ECHO: ECHO 10/18/2024 Left Ventricle: The left ventricle is normal [...] is no recent study available for direct htdv-oc-klvu comparison. [1] Past Medical History: Diagnosis Date Maternal [...] TOOTH EXTRACTION N/A Oral Surgery Tooth Extraction [place] Tooth from [employer] [3] Social History Socioeconomic [...] Resource Strain: Low Risk (05/28/2024) Received from [facility] Overall Financial Resource Strain (CARDIA) Difficulty of Paying Living Expenses: Not hard at all Food Insecurity: No Food Insecurity (05/28/2024) Received from [facility] Hunger Vital Sign Within the past 12 months, you worried that your food would run out before you got the money to buymore.: Never true Within the past 12 months, the food you bought just didn't last and you didn't have money to get more.: Never true Transportation Needs: No Transportation Needs (05/28/2024) Received from [facility] PRAPARE - Transportation In the past 12 months, has lack of transportation kept you from medical appointments or from getting medications?: No In the past 12 months, has lack of transportation kept you from meetings, work, or from getting things needed for daily living?: No Physical Activity: Sufficiently Active (05/28/2024) Received from [facility] Exercise Vital Sign On average, how many days per week do you engage in moderate to strenuous exercise (like a brisk walk)?: 5 days On average, how many minutes do you engage in exercise at this level?: 40 min Stress: Stress Concern Present (05/27/2024) Received from [facility] [place] of Occupational Health - Occupational Stress Questionnaire Feeling of Stress : To some extent Social Connections: Not At Risk (05/28/2024) Received from [facility] Family and Community Support If for any reason you need help with day-to-day activities such as bathing, preparing meals, shopping, managing finances, etc., do you get the help you need?: I don't need any help How often do you feel lonely or isolated from those around you?: Sometimes Intimate Partner Violence: Not At Risk (08/19/2024) Received from [facility] Abuse Screen Feels Unsafe at Home or Work/School: no Feels Threatened by Someone: no Does Anyone Try to Keep You From Having Contact with Others or Doing Things Outside Your Home?: no Physical Signs of Abuse Present: no Housing Stability: Not At Risk (08/20/2024) Received from [facility] Housing Stability Current Living Arrangements: home [...] Encounter [facility] Labor and Delivery [address] [place] [address] 11/21/2024 11:15 AM EDT Visit Medical Office Building Obstetrics and Gynecology [address], [address] [place] [address] Nneka Gipson MD [address] [place] [address] 12/25/2024 1:00 PM EST Office Visit Professional [facility] Nephrology, Bone & Mineral Metabolism [address], [address] [place] [address] documented as of this encounter Procedures Procedure Name Priority Date/Time Associated Diagnosis Comments N-TERMINAL PROBNP, PLASMA Routine 10/24/2024 8:38 AM EDT Palpitations documented in this encounter Results * Troponin T, High Sensitivity, Cardiac Risk Assessment (10/24/2024 8:38 AM EDT) Troponin T, High Sensitivity, 0 Hour <6 <14 ng/L 10/24/2024 11:40 AM EDT [facility] Blood Venous blood specimen / Unknown Venipuncture / Unknown 10/24/2024 8:38 AM EDT 10/24/2024 8:40 AM EDT us Nneka Block MD LAB BLOOD ORDERABLES Final Result [facility] [address] [place] [address] * N-Terminal Probnp, Plasma (10/24/2024 8:38 AM EDT) N-Terminal, PROBNP, Plasma 175 0 - 449 pg/mL 10/24/2024 11:40 AM EDT [facility] Blood Venous blood specimen / Unknown Venipuncture / Unknown 10/24/2024 8:38 AM EDT 10/24/2024 8:40 AM EDT us Nneka Block MD LAB BLOOD ORDERABLES Final Result Performing Organization Address City/State/[facility] Phone Number HEALTHCARE [facility] [address] [place] [address] documented in this encounter Visit Diagnoses Diagnosis Palpitations- Primary documented in this encounter Additional Health Concerns Assessment Noted Time PHQ-9 Depression Total Score: 0 10/25/19 7:52 AM EDT A fall risk assessment has been complete d for the patient 10/24/2024 7:53 AM EDT A Body Mass Index follow-up plan has been documented for the patient 10/24/2024 10:52 AM EDT documented as of this encounter Care Teams Research Engineer Relationship Specialty Start Date End Date Norma Friedman APRN [address] [place] [address] PCP - General 09/23/24 Lizz Trinh, RN [facility] Registered Nurse Cardiology 09/26/24 documented as of this encounter
--- OUTSIDE RECORDS SUMMARY | 2024-10-24 09:45 | XMS_ITS | Encounter Summary ---
Author Organization Healthcare Address [address] [place] [address] Care Team Providers Care Sales Representative Sales Manager Name Role Phone Norma burger JOLENE Primary Care Provider [phone]- [phone] Lizz Trinh RN Unavailable Unavailable Reason for Visit * Reason Comments Routine Visit Encounter Details Date Type Department Care Team (Latest Contact Info) Description 10/24/2024 9:45 AM EDT Routine Medical Office Building Obstetrics and Gynecology [address] [facility], [address] [place] [address] Laury Cruz MD [address] [place] [address] Supervision of high risk , [...] more drinks on one occasion? Never 09/23/2024 Mccormick Depression Scale Answer Date Recorded Mccormick Depression Scale Total 0 09/23/2024 The thought [...] from the original note were not included. [address] First Trimester Assessment Important phone numbers [facility]: [phone] Genetic Counselor - Oliva [place]: [phone] Congratulations on your ! Learn more about [...] NIPT might not be covered. Your maximum ktd-xa-zdjerv cost would be $299 if NIPT is not covered. If you would like to check the cost of NIPT based onyour insurance plan, please call the lab. The lab we use is [facility]. Call its billing specialists at [phone]. The name of their NIPT is called ???[id number] Plus.?? Tests for parents (inherited conditions) Carrier [...] the cost of standard carrierscreening, the maximum qxt-rs-vfwpqh cost would be $199. If you would like to check the cost based on your insurance plan, please call the lab. The lab we use is [facility]. Call their billing specialistsat [phone]. Expanded Carrier Screening (ECS): This is an optional test. It checks if you and your partner carrybetween 200-500 genetic conditions. The cost depends on the specific test you choose. If ECS interests you, please call Oliva Hoffman at [phone] for more information. The tests listed above [...] the risk of stillbirth or having a oks-knela-oqqdow baby. If you smoke, quit now. Alcohol [...] transportation, money problems,housing, access to food, and childcare provider. If you can???t get to medical appointments, [...] water with a slice of lemon or tanacross. (These can also help ease an upset [...] water with a slice of lemon or tanacross. (These can also help ease an upset [...] Which medicines are safe? No prescription or fpha-uzu-rlbbrhb medicine is safe for everyone all of [...] bring the load nearer. Get a good engineering administrator. Test the weight of the load. Tighten [...] Can I paint my nails? Yes. Nail iranian is not thought to be dangerous during . Just be careful about breathing the fumes. Keep windows open or use a fan. However, long-term exposure to the solvents used to removenail iranian may not be safe. If you work [...] baby: provides contact that babies love. Frequent svqe-fi-spco time with Mom is calming andcomforting. Breastmilk [...] rate of diabetes, osteoporosis, and depression. A it sales consultant is a healthcare provider specially trained to help moms. Your nurse, school plant consultant, cleaning supervisor, or family practice doctor can also help [...] with a nurse. [facility] (Triage) [facility] [address] [place] [address] [place] [facility] Medical Office Building [address], [address] [place] [address] [facility] [address] [place] [address] Family Practice [address], Third Floor [address] [place] [address] [facility] [address] [place] [address] [facility] Obstetrics & Gynecology [place] [address] [place] [address] [facility] Obstetrics & Gynecology [place] [address] [place] [address] : Your Second Trimester Changes [...] secondhand smoke. Don???t breathe fumes from nail iranian, hair spray, cleansers, or other chemicals. How daily issues affect your health Many things in your daily life impact your health. This can include transportation, money problems,housing, access to food, and childcare provider. If you can???t get to medical appointments, [...] you have concerns. Keeping a healthy mouth [place] twice daily with fluoride toothpaste. Floss at [...] expect during a blood glucose screening: The [place] [employer] Obst[employer]ians and Gynecologists (ACOG) advises [...] contact your health care provider or visit [email or web address]. [facility]: Women's Health & Obstetrics: Birthing Center Triage: [facility]: Family Practice: [facility] Obstetrics & Gynecology [place]: [facility] Obstetrics & Gynecology [place]: [phone] FAQs How often should I nurse? Feed [...] How many months should I nurse? The [place] [employer] Obstetricians and Gynecologists (ACOG) and the [place] Academy of Pediatrics (AAP) both recommend that parents start as soon as possible after , ideally within the first hour. Research has shown that time xvkq-ih-yiwq after delivery helps to encourage this. Both [...] important to ask for help from a it sales consultant or your healthcare provider. It could be a sign that your baby is having trouble latching correctly and may not be transferring milk from your breast well. Most of the time, this issue is common and can be easilymanaged with a little help. But should not cause ongoing pain. So it is important to find a trained it sales consultant who can help evaluate the latch. Urine [...] supplements. How long should I breastfeed? The [place] Academy of Pediatrics recommends that you breast [...] transportation, money problems,housing, access to food, and childcare provider. If you can???t get to medical appointments, [...] discharge Phone Numbers [facility] (Triage): [facility]: [facility]: [facility]: [facility]: [facility] Obstetrics & Gynecology [place]: [facility] Obstetrics & Gynecology [place]: What Is [...] or irregular heart rate Beginning to Breastfeed: Dvpr-ih-Qlbl What is kxlp-cc-wqiv? After , your nurse will clean and dry your baby. Your baby will then be placed on your chest nzuw-ej-ubjx right away. Your baby???s shoulders should be [...] the first time. Your baby will stay ieyg-lk-iqzw with you for as long as you like after . If you get too sleepy, let your nurse know. Only you or your partner can do ncji-ep-cceu with your baby these first few hours. Visitors may come in, but you must not pass your baby around during this time. This could cause your baby to get cold and then sick. Oslu-rq-edhs is a great way to remind your [...] also lowers your risk of depression. Being ldtf-un-ftob with your baby can help reduce your [...] for feeding. Placing your baby in the cuwm-gq-gutr position on your chest. This can help [...] How many months should I nurse? The [place] [employer] Obstetricians and Gynecologists (ACOG) and the [place] Academy of Pediatrics (AAP) both recommend that parents start as soon as possible after , ideally within the first hour. Research has shown that time xpgw-vk-tjul after delivery helps to encourage this. Both [...] important to ask for help from a it sales consultant or your healthcare provider. It could be a sign that your baby is having trouble latching correctly and may not be transferring milk from your breast well. Most of the time, this issue is common and can be easilymanaged with a little help. But should not cause ongoing pain. So it is important to find a trained it sales consultant who can help evaluate the latch. Urine [...] age 2 or older Beginning to Breastfeed: Evfo-dq-Atlg What is apdy-iz-zhyh? After , your nurse will clean and dry your baby. Your baby will then be placed on your chest nzyp-wz-zdqa right away. Your baby???s shoulders should be [...] the first time. Your baby will stay qdkb-oq-hikh with you for as long as you like after . If you get too sleepy, let your nurse know. Only you or your partner can do qgxp-de-qqhw with your baby these first few hours. Visitors may come in, but you must not pass your baby around during this time. This could cause your baby to get cold and then sick. Gjdn-ig-uaep is a great way to remind your [...] also lowers your risk of depression. Being nkzm-he-ebhm with your baby can help reduce your [...] for feeding. Placing your baby in the aftx-pa-hgad position on your chest. This can help [...] to latch on correctly. [facility] can help with any breast feeding [...] with your provider. And talk with a it sales consultant who has worked with trans and gender [...] is whyit???s important to talk with a it sales consultant. They can review your health history, answer your questions, and advise you on a plan to help you create a milk supply. Creating a milk supply: inducing Inducing is done by stimulating and emptying the breasts. It will take some work and someeffort to build up a milk supply. Your it sales consultant will work closely with you. You will likely need to try a combination of: Breast stimulation. Breast stimulation triggers the hormones that affect milk production. This may be done by using a breast pump or stimulating your nipples by hand. Your it sales consultant will advise you on how often and [...] Induced takes planning, commitment, and support. Your it sales consultant can talk with you about your options. It is helpful to start the process a few months before the baby arrives. What are some issues that may affect my milk supply? Your personal history impacts your ability to chestfeed. Each person???s history as a trans or gender nonbinary person is different. So it???s important to work with a it sales consultant who understands your personal situation and the [...] is available from human milk echavarria. Your it sales consultant can helpyou learn more about finding and [...] The time you spend snuggling together with rjkm-jg-boad contact is special and can: Help you mirza with your baby Help your baby go to sleep Help ease your baby???s pain Promote your baby???s sucking reflex Holds Zkez-fx-Udoj : Latch On Rkor-ge-Jrhn Expressing Breastmilk Work, school, or even a [...] Expressing by Hand or by Pump Your it sales consultant or other healthcare provider can help you [...] on guidelines from the CDC and the [place] Academy [employer] Pediatrics (AAP). Type of storage [...] of your pump is clean. Follow the test developer???s instructions on which parts to clean. Wash pump parts after each use. You may use a utilities manager to clean your pump parts. Place the setting on hot water and heated drying cycle or sanitize cycle. Place the parts on the upper rack. Be sure to wash your hands before taking them out of the utilities manager. Let them air dry if not already dry. Or you may boil the parts if you do not have a utilities manager. Place the parts in a clean avila [...] expect: We will weigh your baby. A cleaning supervisor will check your baby. A it sales consultant will be here to answer questions, watch feeding, and provide resources. Location: The clinic is inside the General Pediatrics Clinic. It is on the second floor [facility]: [facility] [place] [address]. Hours: Monday-Monday, 12:45 p.m.-3:20 p.m. For an appointment: Call [phone]. [facility] [address] [place] [address] Care with Nan www.[email or web address].Spark Helplines [facility] 24 hour Helpline [facility] Services Online Resources IntelliBattdroplets.Spark med.[place]/newborns/professional-education/.html [facility] [address] [place] [id number] Support Groups Ariadna Bustos (MAKI) [facility] meets on the last Monday of each month from 10-11AM. Meetings are held at the [facility]. [address] [place] [address] ([place]) Facebook group: [place], [place] [facility] Meetings are monthly. Call or go online to register. www.[email or web address] Breast Pump Coverage Below are medical supply options to buy double electric breast pumps. Please check with your insurance carrier, as some coverage has changed. You might be able to order a pump 30-60 days before your due date. [employer]: (Formerly [facility] Oxygen and Coppola's) [facility] covers: Medela Pump N Style Starter Kit 100%, Spectra II 100% order department supervisor at: Krish Vargas [address] [place], [place] The [employer] (AMI) Website: www.GL 2ours or Email: [email or web address]-pumps@GL [email or web address] [facility] covers: Ameda Finesse, Medela Pump N Style Starter Kit, Spectra S II, Lansinoh Smart Pump. Ships within 30 days of due date [employer]: www.momsgetmore.Spark Provides Hygeia pumps only (double electric closed system). Text PUMP to for eligibility. [facility] Approved Mom[employer] Express Website: www.mommyexpress.com or info@mommyiSchool Campus.com [facility] covers: 100% for AmJosiane See 2 Upgrades available: $25 fee for Medela Max Ozzie, $55 fee for Spectra S II Delivers to your home Pumps for Mom ([facility]) Office: Email: [email or web address] Also carries support garments for and [employer] Website: https://www.[employer].pVaccine Technologies International.Spark Office: * Progress Notes - Kaitlyn Richter MD - 10/24/2024 9:45 AM EDT [facility] Follow Up Subjective Whitney Presley is [...] Brandan with primary OB Dr Marin in [facility] O+/RI/HCV-/HIV- Needs HBV and syphilis G/C negative [...] Had tachycardia and arrhythmia during admission to [facility] on 09/19 HR to 170s-180s [...] Kaitlyn Richter MD PGY-2, Obstetrics and Gynecology [facility] Cosigned by Laury Cruz MD at [...] Encounter [facility] Labor and Delivery [address] [place] [address] 11/21/2024 11:15 AM EDT Visit Medical Office Building Obstetrics and Gynecology [address] [facility] [address], [address] [place] [id number] Nneka Gipson MD [address] [place] [address] 12/25/2024 1:00 PM EST Office Visit [facility] Nephrology, Bone & Mineral Metabolism [address] [facility], [address] [place] [address] Scheduled Orders Name Type Priority [...] Ketones, Urine Negative Negative mg/dL POCT Specific [place], Urine 1.015 POCT Blood, Urine Negative Negative POCT pH, Urine 8.5(A) 5.0 to 8.0 POCT Protein, Urine Trace(A) Negative mg/dL POCT Urobilinogen, Urine 0.2 0.2, 1 E.U./dL POCT Nitrite, Urine Negative Negative POCT Leukocyte Esterase, Urine Negative Negative Test Strip Lot Number [id number] Test Strip Lot Expiration 08/2025 Urine Urine [...] documented as of this encounter Care Teams Sales Representative Sales Manager Relationship Specialty Start Date End Date Norma Friedman APRN [address] [place] [address] PCP - General 09/23/24 Lizz Trinh, RN [facility] Registered Nurse Cardiology 09/26/24 documented as of this encounter
--- OUTSIDE RECORDS SUMMARY | 2024-10-29 12:14 | XMS_ITS | Encounter Summary ---
Author Organization Healthcare Address [address] [place] [address] Care Team Providers Care Patient Manager Name Role Phone Norma Friedman JOLENE Primary Care Provider +1- [phone] Lizz Trinh RN Unavailable Unavailable Encounter Details Date Type Department Care Team (Late Contact Info) Description 07/22/2024 Community [facility] [address] [place] [address] Sandy Cardenas MD [address] [facility] [address] [id number] Social History Tobacco Use Types Packs/Day Years [...] Encounter [facility] H Labor and Delivery [address] [place] [address] 11/21/2024 11:15 AM EDT Visit Medical Office Building Obstetrics and Gynecology [address] [facility], [address] [place] [address] Nneka Gipson MD [address] [place] [address] 12/25/2024 1:00 PM EST Office Visit [facility] Nephrology, Bone & Min[facility] Metabolism [address] [facility], [address] [place] [address] documented as of this encounter Visit Diagnoses Not on filedocumented in this encounter Additional Health Concerns Infection Onset Date Last Indicated Resolved Time COVID-19 Rule-Out 10/17/2024 10/17/2024 10/19/2024 1:56 AM EDT Respiratory Rule-Out 10/17/2024 10/17/2024 025 11:23 PM EDT documented as of this encounter Care Teams Patient Manager Relationship Specialty Start Date End Date Norma Friedman APRN [address] [facility] [place] [address] PCP - General 09/23/24 Lizz Trinh, RN [facility] Registered Nurse Cardiology 09/26/24 documented as of this encounter
--- OUTSIDE RECORDS SUMMARY | 2024-10-29 12:14 | XMS_ITS | Clinical Summary ---
Author Organization [facility] [place] [address] Phone Care Team Providers Care Application Systems Administrator Name Role Phone Unavailable Primary Care Provider [...] migh t be different from the original. [facility] - Edwardo Ojeda MD Interventional Pain Protocol: NS Appt 03/29/22 Letter Sent Maxime report completed (EVERY 3 MONTHS) ( 03/23/22) Pharmacy: [facility] [address] [place] [phone] [address] [facility] south - [phone] No known active problems Social History Tobacco [...] patient's age to complete this topic Insurance Tackle [employer] [facility] [place] [address] [address] [id number] [facility] Tackle [employer] [facility] [address]
--- OUTSIDE RECORDS SUMMARY | 2024-10-29 12:15 | XMS_ITS | Encounter Summary ---
Author Organization Healthcare Address [address] [place] [address] Care Team Providers Care Industrial Rehabilitation Consultant Name Role Phone Norma Friedman PRINT DESIGNER Primary Care Provider +1- [phone] Lizz Trinh RN Unavailable Unavailable Encounter Details [...] more drinks on one occasion? Never 09/23/2024 [place] Depression Scale Answer Date Recorded [place] Depression Scale Total 0 09/23/2024 The thought [...] H Labor and Delivery [address] [place] [address] 11/21/2024 11:15 AM EDT Visit Medical Office Building Obstetrics and Gynecology [address] [facility], [address] [place] [address] Nneka Gipson MD [address] [place] [address] 12/25/2024 1:00 PM EST Office Visit Professional [facility] Nephrology, Bone & Mineral Metabolism [address] [facility], [address] [place] [address] documented as of this encounter [...] as of this encounter Care Teams Industrial Rehabilitation Consultant Relationship Specialty Start Date End Date Norma Friedman APRN [address] [place] [address] PCP - General 09/23/24 Lizz Trinh, RN [facility] Registered Nurse Cardiology 09/26/24 documented as of this encounter
--- OUTSIDE RECORDS SUMMARY | 2024-10-29 12:15 | XMS_ITS | Encounter Summary ---
Author Organization Healthcare Address [address] [place] [address] Care Team Providers Care Furnace Reliner Name Role Phone Norma Friedman JOLENE Primary Care Provider +1- [phone] Lizz Trinh RN Unavailable Unavailable Encounter Details Date Type Department Care Team ([facility] Contact Info) Description 10/17/2024 Telephone Medical Office Building Obstetrics and Gynecology [address] [facility], [address] [place] [address] Tracy Segovia, RN [facility] UL[facility]IC 1st [facility] Social History Tobacco Use Types Packs/Day Years [...] more drinks on one occasion? Never 09/23/2024 [place] Depression Scale Answer Date Recorded [place] Depression Scale Total 0 09/23/2024 The thought [...] from Brandee at Dr. Ramon's office in [place], she was calling because Whitney is notscheduled [...] ED for evaluation. I contacted Brenda OB house nurse with report on expectant patient. Message sent to Dr. Wheeler with patient update. documented in this encounter Plan of Treatment Upcoming Encounters Date Type Department Care Team (Late st Contact Info) Description 10/31/2024 Hospital Encounter [facility] H Labor and Delivery [address] [place] [address] 11/21/2024 11:15 AM EDT Visit Medical Office Building Obstetrics and Gynecology [address] [facility], [address] [place] [address] Nneka Gipson MD [address] [place] [address] 12/25/2024 1:00 PM EST Office Visit Professional [facility] Nephrology, Bone & Mineral Metabolism [address] [facility], [address] [place] [address] documented as of this encounter Visit Diagnoses Not on filedocumented in this encounter Additional Health Concerns Assessment Noted Time A fall risk assessment has been complete d for the patient 09/26/2024 8:15 AM EDT A Body Mass Index follow-up plan has been documented for the patient 10/20/2024 9:52 AM EDT documented as of this encounter Care Teams Furnace Reliner Relationship Specialty Start Date End Date Norma Friedman APRN [address] [place] [address] PCP - General 09/23/24 Lizz Trinh, RN [facility] Registered Nurse Cardiology 09/26/24 documented as of this encounter
--- OUTSIDE RECORDS SUMMARY | 2024-10-29 12:15 | XMS_ITS | Encounter Summary ---
Author Organization Healthcare Address [address] [place] [address] Care Team Providers Care Wealth Management Manager Name Role Phone Norma Friedman TIRE WORKER Primary Care Provider +1- [phone] Lizz Trinh RN Unavailable Unavailable Encounter Details [...] more drinks on one occasion? Never 09/23/2024 [place] Depression Scale Answer Date Recorded [place] Depression Scale Total 0 09/23/2024 The thought [...] H Labor and Delivery [address] [place] [address] 11/21/2024 11:15 AM EDT Visit Medical Office Building Obstetrics and Gynecology [address] [facility], [address] [place] [address] Nneka Gipson MD [address] [place] [address] 12/25/2024 1:00 PM EST Office Visit [employer] [facility] Nephrology, Bone & Mineral Metabolism [address] [facility], [address] [place] [address] documented as of this encounter [...] documented as of this encounter Care Teams Wealth Management Manager Relationship Specialty Start Date End Date Norma Friedman APRN [address] [place] [address] PCP - General 09/23/24 Lizz Trinh, RN [facility] Registered Nurse Cardiology 09/26/24 documented as of this encounter
--- OUTSIDE RECORDS SUMMARY | 2024-10-29 12:15 | XMS_ITS | Encounter Summary ---
[facility] Address [address] [place] [phone] Care Team Providers Care Physical Therapy Aide Name Role Phone Ivyashlyn Valentinoseven JOLENE Primary Care Provider + [phone] Encounter Details Date Type Department Care Team (Late st Contact Info) Description 06/26/2024 Results Follow-Up [facility] [address] [address] Koby Roberts MD [address] [place] [address] Social History Tobacco Use Types Packs/Day Years Used Date Smoking Tobacco: Never Smokeless Tobacco: Never Alcohol Use Standard Drinks/Week Comments Never 0 (1 standard drink = 0.6 oz pur e alcohol) [facility] Utilities Answer Date Recorded In the past 12 months has [employer], gas, oil, or water [facility] threatened to shut off services in your [...] at all 05/28/2024 [employer] [facility] - Occupational Stress [...] EST Office Visit [facility] [address] [address] Robbin Escalante MD [address] [address] documented as of this encounter Visit Diagnoses Not on filedocumented in this encounter Additional Health Concerns Assessment Noted Time PHQ-2 Depression Total Score: 2 05/28/19 25 4:39 PM EDT documented as of this encounter Care Teams Physical Therapy Aide Relationship Specialty Start Date End Date Norma Friedman APRN [address] [place] [address] [address] PCP - General Family Medicine 05/14/24 documented as of this encounter
--- OUTSIDE RECORDS SUMMARY | 2024-10-29 12:15 | XMS_ITS | Clinical Summary ---
Author Organization [facility] Address [address] [place] [address] Care Team Providers Care Agricultural Researcher Name Role Phone Unavailable Primary Care Provider Unavailabl e Source Comments [place] is fully rolled out with thefollowing exceptions:General Clinical Research [facility] Social History Tobacco Use Types [...]
--- OUTSIDE RECORDS SUMMARY | 2024-10-29 12:15 | XMS_ITS | Encounter Summary ---
Author Organization Healthcare Address [address] [place] [address] Care Team Providers Care Tea Leaf Reader Name Role Phone Norma Friedman JOLENE Primary Care Provider +1- [phone] Lizz Trinh RN Unavailable Unavailable Encounter Details [...] more drinks on one occasion? Never 09/23/2024 Bonner Depression Scale Answer Date Recorded Bonner Depression Scale Total 0 09/23/2024 The thought [...] Encounter [facility] H Labor and Delivery [address] [place] [address] 11/21/2024 11:15 AM EDT Visit Medical Office Building Obstetrics and Gynecology [address] [facility], [address] [place] [address] Nneka Gipson MD [address] [place] [address] 12/25/2024 1:00 PM EST Office Visit Professional [facility] [place] Nephrology, Bone & Mineral Metabolism [address] [facility], [address] [place] [address] documented as of this encounter [...] documented as of this encounter Care Teams Tea Leaf Reader Relationship Specialty Start Date End Date Norma Friedman APRN [address] [place] [address] PCP - General 09/23/24 Lizz Trinh, RN [facility] Registered Nurse Cardiology 09/26/24 documented as of this encounter
--- OUTSIDE RECORDS SUMMARY | 2024-10-29 12:15 | XMS_ITS | Encounter Summary ---
Author Organization Healthcare Address [address] [place] [address] Care Team Providers Care State Manager Name Role Phone Norma Friedman JOLENE Primary Care Provider +1- [phone] Lizz Trinh RN Unavailable Unavailable Encounter Details Date Type Department Care Team (Late st Contact Info) Description 10/16/2024 Results Follow-Up [facility] [place] [address] [facility] [place] [address] Nneka Block MD [address] [place] [address] Social History Tobacco Use Types [...] more drinks on one occasion? Never 09/23/2024 Oakes Depression Scale Answer Date Recorded Oakes Depression Scale Total 0 09/23/2024 The thought [...] Suicidal Behavior (Lifetime) No 4:00 PM EDT eTx Harman RN documented as of this encounter Plan of Treatment Upcoming Encounters Date Type Department Care Team ([facility] st Contact Info) Description 10/31/2024 Hospital Encounter [facility] H Labor and Delivery [address] [place] [address] 11/21/2024 11:15 AM EDT Visit Medical Office Building Obstetrics and Gynecology [address] [facility], [address] [place] [address] Nneka Gipson MD [address] [place] [address] 12/25/2024 1:00 PM EST Office Visit [facility] Nephrology, Bone & Mineral Metabolism [address] [facility], [address] [place] [address] documented as of this encounter [...] documented as of this encounter Care Teams State Manager Relationship Specialty Start Date End Date Norma Friedman APRN [address] [place] [address] PCP - General 09/23/24 Lizz Trinh, RN [facility] Registered Nurse Cardiology 09/26/24 documented as of this encounter
--- OUTSIDE RECORDS SUMMARY | 2024-10-29 12:16 | XMS_ITS ---
Author Organization [facility] Address [address] [place] [address] Care Team Providers Care Financial Investigator Name Role Phone Unavailable Primary Care Provider Unavailabl e Transplant Episode Kidney Potential Donor [facility] ([place], [place]) - [facility] Referred on 05/03/2022 Marked as Deferred on 05/04/2022 Reason: Other Kidney CoordinatorNadine Augustin R.N. Phone: N/A Fax: N/A Email: N/A Care Team Name Role Phone Fax Email Nadine Augustin R.N. Kidney Coordinator N/A N/A N/A Events Pre-Donation Referred: 05/03/2022
--- OUTSIDE RECORDS SUMMARY | 2024-10-29 12:16 | XMS_ITS | Clinical Summary ---
Author Organization [facility] Address [address] [place] [address] Care Team Providers Care Sprue Cutting Press Operator Name Role Phone Norma Friedman APRN Primary Care Provider + [phone] Allergies Active Allergy Reactions Criticality Noted Date [...] Type Department Care Team Description 5 Telephone [facility] MATERNAL MEDICINE [address] [facility] [place] [address] [place] [address] Lyudmila Germain, wafer production worker Only 5 Documentation [facility] LABOR DELIVERY [address] [place] [address] Christy Zabala RN 5 Results Follow-Up [facility] OBGYN [address] [place] [address] Rob Wharton MD 5 Telephone [facility] OBGYN [address] [facility] [address] [place] [address] Rob Wharton MD 5 10:00 AM EDT Routine [facility] [place] [address] Rob Wharton MD [place]: 26w4d 5 Travel 5 Telephone [facility] OBGYN [address] [facility] [address] [place] [address] Rob Wharton MD 5 Telephone [facility] [place] [address] Rob Wharton MD 5 1:44 PM EDT Anesthesia Event [facility] ENDO SUITES [address] [place] [address] Akash Anguiano MD Lanham, John, CRNA 5 1:33 PM EDT - 5 2:05 PM EDT Surgery [facility] ENDO SUITES [address] [facility] [place] [address] Blu Alvarado MD ESOPHAGOGASTRODUODENOSCOPY [45521 (CPT )] 5 1:59 PM EDT - 5 4:28 PM EDT Hospital Encounter [facility] ANTEPARTUM [address] [place] [address] Rob Wharton MD Brunner, Mark I, MD Dysphagia, unspecified type (Primary Dx) Discharge Disposition: Home or Self Care 5 10:15 AM EDT Routine [facility] OBGYN [address] [place] [address] Jacey Mathwes, CUSTOMS GUARD GA: 25w1d 5 Telephone [facility] OBGYN [address] [place] [address] Jacey Mtahews, CUSTOMS GUARD 5 Travel from Last 3 Months Family [...] 0.6 oz pur e alcohol) [facility] Utilities Answer Date Recorded In the past 12 months has [employer], gas, oil, or water [facility] threatened to shut off services in your [...] and heating? Not hard at all 05/28/2024 [place] [facility] Occupat ional [facility] - Occupational Stress [...] Visit [facility] GASTROENTEROLOGY [address] [address] Robbin Escalante MD [address] [address] Health Maintenance Due Date Last [...] - 08/30/2024 6:09 AM EDT Performed at: [address] [place] [id number] Needle Bar Molder: Kevin Harman MD, Phone: [phone] Patient Fasting: N Rob Wharton MD LAB BLOOD ORDERABLES Final Result [facility] (AMBULATORY) [address] [place] [address], [place] [phone] [facility] [address] [place] [address], [place] [phone] * (ABNORMAL) Comprehensive Metabolic Panel (08/29/2024 11:05 AM EDT) Only the most recent of2 resultswithin the time period is included. [facility] Glucose 72 65 - 99 mg/dL [...] - 08/30/2024 6:09 AM EDT Performed at: [address] [place] [id number] Needle Bar Molder: Kevin Harman MD, Phone: [phone] Patient Fasting: N Rob Wharton MD LAB BLOOD ORDERABLES Final Result [facility] (AMBULATORY) [address] [place] [address], [place] [phone] [facility] [address] [place] [address], [place] [phone] * (ABNORMAL) POC Urinalysis Dipstick (08/29/2024 10:13 AM EDT) Glucose, UA Negative Negative mg/dL [facility] Protein, POC Trace(A) Negative mg/dL [facility] Urine 08/29/2024 10:1 3 AM EDT Rob Wharton MD POINT OF CARE TEST OR DERABLES Final Result [facility]
[address] [place] [address], * BH AN ETT AIRWAY (08/20/2024 2:02 [...] EDT) Case Report Surgical Pathology Report Case: [id number] Authorizing Provider: Blu Alvarado MD Collected: 08/20/2024 01:55 PM Ordering Location: [facility] Received: 08/20/2024 02:14 PM ENDO SUITES Pathologist: Khalida Rhoades DO Specimen: Gastric, Antrum, antrum bx for path 08/22/2024 9:18 AM EDT [facility] LABORATORY Clinical Information Dysphagia, unspecified type 08/22/2024 9:18 AM EDT [facility] LABOR[facility] Final Diagnosis Stomach, antrum, biopsy: 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 pylori is negative (no organisms are identified) Negative for intestinal metaplasia, dysplasia, or malignancy 08/22/2024 9:18 AM EDT [facility] LABOR[facility]ORY at 0918 EDT Gross Description 1. Gastric, Antrum. Received in formalin labeled antrum biopsy is a 0.4 x 0.2 x 0.2 cm pink-see soft tissue fragment submitted entirely in a single cassette. HDM 08/22/2024 9:18 AM EDT [facility] Microscopic Description The slides are reviewed and demonstrate histopathologic features supporting the above rendered diagnosis. 08/22/2024 9:18 AM EDT [facility] Tissue Pyloric antrum structure / Unknown 08/20/2024 1:55 PM EDT 08/20/2024 2:14 PM EDT Blu Alvarado MD PATHOLOGY/CYTOLOGY ORDERABLES Final Result [facility] LABORATORY
[address] [place] [address], * Upper GI Endoscopy (08/20/2024 1:09 PM EDT) Blu Alvarado MD INTERFACE NEEDS Final Result * (ABNORMAL) Basic Metabolic Panel (08/20/2024 5:25 AM EDT) Glucose 84 65 - 99 mg/dL 08/20/2024 6:13 AM EDT [facility] BUN 2.3(L) 6.0 - 20.0 mg/dL 08/20/2024 6:13 AM EDT [facility] Creatinine 0.51(L) 0.57 - 1.00 mg/dL 08/20/2024 6:13 AM EDT [facility] Sodium 139 136 - 145 mmol/L 08/20/2024 6:13 AM EDT [facility] Potassium 3.5 3.5 - 5.2 mmol/L 08/20/2024 6:13 AM EDT [facility] Chloride 109(H) 98 - 107 mmol/L 08/20/2024 6:13 AM EDT [facility] CO2 23.5 22.0 - 29.0 mmol/L 08/20/2024 6:13 AM EDT [facility] Calcium 7.8(L) 8.6 - 10.5 mg/dL 08/20/2024 6:13 AM EDT [facility] BUN/Creatinine Ratio 4.5(L) 7.0 - 25.0 08/20/2024 6:13 AM EDT [facility] Anion Gap 6.5 5.0 - 15.0 mmol/L 08/20/2024 6:13 AM EDT [facility] eGFR 126.6 >60.0 mL/min/1.7 3 08/20/2024 6:13 AM EDT [facility] Blood Venipuncture / Unknown 08/20/2024 5:25 AM EDT 08/20/2024 5:46 AM EDT Narrative [facility] - 08/20/2024 6:13 [...] ORDERABLES Final Resu lt Performing Organization Address City/[facility]/ZIP Co de Phone Number [facility]
[address] [place] [address], [place] [phone] * (ABNORMAL) Potassium (08/19/2024 8:53 PM EDT) Potassium 2.7(L) 3.5 - 5.2 mmol/L 08/19/2024 9:20 PM EDT [facility] Blood Venipuncture / Unknown 08/19/2024 8:53 PM EDT 08/19/2024 9:04 PM EDT Kt Fan DO LAB BLOOD ORDERABLES Final Result [facility] LABORATORY
[address] [place] [address], [place] [phone] * ABO RH Specimen Verification (08/19/2024 4:34 PM EDT) ABO Type O 08/19/2024 7:39 PM EDT [facility] LABORATORY RH type Positive 08/19/2024 7:39 PM EDT [facility] LAB[facility] Blood Venipuncture / Unknown 08/19/2024 4:34 PM EDT 08/19/2024 4:53 PM EDT Rob Wharton MD BLOOD BANK TEST ORDER FRANCO Final Result [facility] LABORATORY
[address] [place] [address], * [facility] (08/19/2024 3:25 PM EDT) Anatomical Region Laterality Modality Ultrasound 08/19/2024 3:09 PM EDT Narrative 08/19/2024 4:54 PM EDT PAT NAME: CAROLE GIRARD MED REC#: [id number] DA: [id number] PAT GEND: F PAT TYPE: E EXAM TRAVIS: [id number] REF PHYS ROB WHARTON Comparison Studies The [...] EFW (oz) 9 oz EFW by: Hadlock ([id number]) Extended Cav. septi pel. tr 4.7 mm Ladderman 3.8 mm CM 7.5 mm 84% Nicolaides [...] Heart / Thorax 3-vessel view: Appears normal 2-rfdauv-fjjtalq view: Appears normal Stomach: Appears normal Kidneys: [...] in 4wks for growth. Coding ======= Description: 18095-24 Follow Up Hand Outside Cutter: RT Annetta Hartmann , [facility] Physician: Jo Chappell MD Electronically signed by: Jo Chappell MD at: 16:54 Procedure Note Jo Chappell MD - 08/19/2024 PAT NAME: CAROLE GIRARD MED REC#: [id number] DA: [id number] PAT GEND: F PAT TYPE: E EXAM TRAVIS: [id number] REF PHYS ROB WHARTON Comparison Studies The findings of this study are compared to the prior ultrasound studydated 07/22/24 Patient Status Inpatient Indication ======== History of c/s x1. History of . Vaginal bleeding. Maternal Assessment Cijryv442 cm Height (ft)5 ft Height (in)4 in Fjwzrx01 kg Weight (lb)158 lb BMI27.31 kg/m Method ======= Transabdominal ultrasound examination. View: Limited by patient bodyhabitus ========= Love . Number of fetuses: 1 Dating ====== Method of dating:based on stated DUSTY GA by prior vwayifuvms92 w + 1 d DUSTY by prior [...] Hadlock Femur44.9 mm 24w 6d 27% Hadlock Jgjjbry83.3 mm 25w 3d 50% Jamal HC / AC1.16 KUR665 g 24w 2d 16% Hadlock EFW (lb)1 lb EFW (oz)9 oz EFW by:Hadlock ([id number]) Extended Cav. septi pel. tr4.7 mm Vp3.8 mm CM7.5 mm 84% Nicolaides Head / Face / Neck Cephalic index0.71 <1% Nicolaides Extremities / Bony Struc FL / BPD0.78 FL / HC0.20 FL / AC0.23 Other Structures AAK733 bpm General Evaluation Cardiac activity present. FHR [...] normal Heart / Thorax 3-vessel view:Appears normal 4-lyqrcu-xcdfkuj view:Appears normal Stomach:Appears normal Kidneys:Appears normal Bladder:Appears normal Gender:female Wants to know gender:yes Maternal Structures Uterus / Cervix Cervix:Visualized Approach:Transabdominal Cervical drqcga84.9 mm Doppler Arterial Umbilical A PI1.01 32% [...] office in 4wks for growth. Coding ======= Description:83146-20 Follow Up Hand Outside Cutter: RT Annetta Hartmann , [facility] Physician: Jo Chappell MD Electronically signed by: Jo Chappell MD at: 16:54 Kt Fan DO IMG US ORDERABLES Final Res ult * Urinalysis, Microscopic Only - Urine, Clean Catch (08/19/2024 3:02 PM EDT) RBC, UA 0-2 None Seen, 0-2 /HPF 08/19/2024 3:33 PM EDT [facility] WBC, UA 0-2 None Seen, 0-2 /HPF 08/19/2024 3:33 PM EDT [facility] Bacteria, UA None Seen None Seen /HPF 08/19/2024 3:33 PM EDT [facility] Squamous Epithelial Cells, UA 0-2 None Seen, 0-2 /HPF 08/19/2024 3:33 PM EDT [facility] Hyaline Casts, UA None Seen None Seen /LPF 08/19/2024 3:33 PM EDT [facility] Methodology Automated Microscopy 08/19/2024 3:33 PM EDT [facility] Urine Urine specimen obtained by clean catch procedure / Unknown Collection / Unknown 08/19/2024 3:02 PM EDT 08/19/2024 3:13 PM EDT Kt Fan DO URINE ORDERABLES Final Resu lt [facility]
[address] [place] [address], * (ABNORMAL) Urinalysis With Microscopic If Indicated (No Culture) - Urine, Clean Catch (08/19/2024 3:02 PM EDT) Color, UA Yellow Yellow, Straw 08/19/2024 3:33 PM EDT [facility] Appearance, UA Clear Clear 08/19/2024 3:33 PM EDT [facility] pH, UA >=9.0(H) 5.0 - 8.0 08/19/2024 3:33 PM EDT [facility] Specific Ingraham, UA 1.018 1.005 - 1.030 08/19/2024 3:33 PM EDT [facility] Glucose, UA Negative Negative 08/19/2024 3:33 PM EDT [facility] Ketones, UA 15 mg/dL (1+)(A) Negative 08/19/2024 3:33 PM EDT [facility] Bilirubin, UA Negative Negative 08/19/2024 3:33 PM EDT [facility] Blood, UA Negative Negative 08/19/2024 3:33 PM EDT [facility] Protein, UA 30 mg/dL (1+)(A) Negative 08/19/2024 3:33 PM EDT [facility] Leuk Esterase, UA Negative Negative 08/19/2024 3:33 PM EDT [facility] Nitrite, UA Negative Negative 08/19/2024 3:33 PM EDT [facility] Urobilinogen, UA 1.0 E.U./dL 0.2 - 1.0 E.U./dL 08/19/2024 3:33 PM EDT [facility] Urine Urine specimen obtained by clean catch procedure / Unknown Collection / Unknown 08/19/2024 3:02 PM EDT 08/19/2024 3:13 PM EDT Kt Fan DO URINE ORDERABLES Final Resu lt [facility]
[address] [place] [address], * (ABNORMAL) CBC Auto Differential (08/19/2024 3:02 PM EDT) WBC 9.19 3.40 - 10.80 10*3/mm3 08/19/2024 3:23 PM EDT [facility] RBC 3.58(L) 3.77 - 5.28 10*6/mm3 08/19/2024 3:23 PM EDT [facility] Hemoglobin 10.5(L) 12.0 - 15.9 g/dL 08/19/2024 3:23 PM EDT [facility] Hematocrit 31.4(L) 34.0 - 46.6 % 08/19/2024 3:23 PM EDT [facility] MCV 87.7 79.0 - 97.0 fL 08/19/2024 3:23 PM EDT [facility] MCH 29.3 26.6 - 33.0 pg 08/19/2024 3:23 PM EDT [facility] MCHC 33.4 31.5 - 35.7 g/dL 08/19/2024 3:23 PM EDT [facility] RDW 13.4 12.3 - 15.4 % 08/19/2024 3:23 PM EDT [facility] RDW-SD 42.4 37.0 - 54.0 fl 08/19/2024 3:[facility] MPV 12.0 6.0 - 12.0 fL 08/19/2024 3:23 PM EDT [facility] Platelets 241 140 - 450 10*3/mm3 08/19/2024 3:23 PM EDT [facility] Neutrophil % 66.8 42.7 - 76.0 % 08/19/2024 3:23 PM EDT [facility] Lymphocyte % 24.4 19.6 - 45.3 % 08/19/2024 3:23 PM EDT [facility] Monocyte % 7.6 5.0 - 12.0 % 08/19/2024 3:23 PM EDT [facility] Eosinophil % 0.7 0.3 - 6.2 % 08/19/2024 3:23 PM EDT [facility] Basophil % 0.2 0.0 - 1.5 % 08/19/2024 3:23 PM EDT [facility] Immature Grans % 0.3 0.0 - 0.5 % 08/19/2024 3:23 PM EDT [facility] Neutrophils, Absolute 6.14 1.70 - 7.00 10*3/mm3 08/19/2024 3:23 PM EDT [facility] Lymphocytes, Absolute 2.24 0.70 - 3.10 10*3/mm3 08/19/2024 3:23 PM EDT [facility] Monocytes, Absolute 0.70 0.10 - 0.90 10*3/mm3 08/19/2024 3:23 PM EDT [facility] Eosinophils, Absolute 0.06 0.00 - 0.40 10*3/mm3 08/19/2024 3:23 PM EDT [facility] Basophils, Absolute 0.02 0.00 - 0.20 10*3/mm3 08/19/2024 3:23 PM EDT [facility] Immature Grans, Absolute 0.03 0.00 - 0.05 10*3/mm3 08/19/2024 3:23 PM EDT [facility] nRBC 0.0 0.0 - 0.2 /100 WBC 08/19/2024 3:23 PM EDT [facility] Blood Line / Unknown 08/19/2024 3: 02 PM EDT 08/19/2024 3:10 PM EDT Kt Fan DO LAB BLOOD ORDERABLES Final Result [facility]
[address] [place] [address], * Protein / Creatinine Ratio, Urine - [...] Resu lt [facility]
[address] [place] [address], [place] [phone] * Type & Screen (08/19/2024 3:02 PM EDT) ABO Type O 08/19/2024 3:51 PM EDT [facility] RH type Positive 08/19/2024 3:51 PM EDT [facility] Antibody Screen Negative 08/19/2024 3:51 PM EDT [facility] T&S Expiration Date 08/22/2024 11:59:59 PM 08/19/2024 3:51 PM EDT [facility] Blood Line / Unknown 08/19/2024 3: 02 PM EDT 08/19/2024 3:15 PM EDT Kt Fan DO BLOOD BANK TEST ORDERABLES Edited Result - Final Performing Organization Address [facility]/ZIP Co de Phone Number [facility]
[address] [place] [address], [place] [phone] * (ABNORMAL) Magnesium (08/19/2024 3:02 PM EDT) Magnesium 1.5(L) 1.6 - 2.6 mg/dL 08/19/2024 5:12 PM EDT [facility] Blood Line / Unknown 08/19/2024 3: 02 PM EDT 08/19/2024 3:10 PM EDT us Kt Fan DO LAB BLOOD ORDERABLES Final Result [facility]
[address] [place] [address], * Lipase (08/19/2024 3:02 PM EDT) Lipase 13 13 - 60 U/L 08/19/2024 3:36 PM EDT [facility] Blood Line / Unknown 08/19/2024 3: 02 PM EDT 08/19/2024 3:10 PM EDT Kt Fan DO LAB BLOOD ORDERABLES Final Result Performing Organization Address City/[facility]/ZIP Co de Phone Number [facility]
[address] [place] [address], * Amylase (08/19/2024 3:02 PM EDT) Pathologist [facility] Amylase 73 28 - 100 U/L 08/19/2024 3:36 PM EDT [facility] Blood Line / Unknown 08/19/2024 3: 02 PM EDT 08/19/2024 3:10 PM EDT Kt Fan DO LAB BLOOD ORDERABLES Final Result Performing Organization Address City/[facility]/ZIP Co de Phone Number [facility]
[address] [place] [address], * Hepatitis C Antibody (04/12/2024) Pathologist [facility] Hep C Virus Ab negative Blood Historical Provider LAB BLOOD ORDERABLES Lena l Result from Last 3 Months or Most Recently Relevant to Health Maintenance Insurance [facility] Care Teams Sprue Cutting Press Operator Relationship Specialty Start Date End Date Norma Friedman APRN [address] [place] [address] [place]FA[place] APPIAH [address] PCP - General Family Medicine 05/14/24
--- OUTSIDE RECORDS SUMMARY | 2024-10-29 12:16 | XMS_ITS | Encounter Summary ---
Author Organization Healthcare Address [address] [place] [address] Care Team Providers Care Commercial Loan Collection Officer Name Role Phone Norma Friedman GAS PUMPING STATION SUPERVISOR Primary Care Provider [phone] Lizz Trinh RN Unavailable Unavailable Encounter Details [...] more drinks on one occasion? Never 09/23/2024 [place]thel Depression Scale Answer Date Recorded [place] Depression Scale Total 0 09/23/2024 The thought [...] H Labor and Delivery [address] [place] [address] 11/21/2024 11:15 AM EDT Visit Medical Office Building Obstetrics and Gynecology [address], [address] [place] [address] Nneka Gipson MD [address] [place] [id number] 12/25/2024 1:00 PM EST Office Visit Professional [facility] [place] [facility], Bone & Mineral Metabolism [address], [address] [place] [address] documented as of this encounter Visit Diagnoses Not on filedocumented in this encounter Additional Health Concerns Assessment Noted Time A fall risk assessment has been complete d for the patient 09/26/2024 8:15 AM EDT A Body Mass Index follow-up plan has been documented for the patient 09/27/2024 10:22 AM EDT documented as of this encounter Care Teams Commercial Loan Collection Officer Relationship Specialty Start Date End Date Norma Friedman APRN [address] [place] [address] PCP - General 09/23/24 Lizz Trinh, RN [facility] Registered Nurse Cardiology 09/26/24 documented as of this encounter
--- OUTSIDE RECORDS SUMMARY | 2024-10-29 12:16 | XMS_ITS | Encounter Summary ---
Author Organization Healthcare Address [address] [place] [address] Care Team Providers Care Developer Architect Name Role Phone Unavailable Primary Care Provider Unavailabl e Reason for Referral * Consultation (Routine) - Closed Specialty Diagnoses / Procedures Referred By Contac t Referred To Contact Nephrology Diagnoses Hypokalemia Liborio Weller MD [address] [facility] [address] [place] [address] Phone: tel: fax: [facility] Nephrology, Bone & Mineral Metabolism [address] [facility], [address] [place] [address] Phone: tel: fax: Referral ID Status Reason Start Date Expiration Date V isits Requested Visits Authorized [id number] Closed Specialty Services Required 09/14/2024 03/16/2026 1 1 Scheduling Instructions Severe hypokalemia in the setting of Encounter Details Date Type Department Care Team (Late st Contact Info) Description 09/14/[address] [facility] Obstetrics & Gynecology [address] [place] [address] Susi Wren MD [address] [place] [address] Social History Tobacco Use Types [...] had an outpatient workup with Nephrology at [facility] that was negative, she was not amenable [...] Encounter [facility] Labor and Delivery [address] [place] [address] 11/21/2024 11:15 AM EDT Visit Medical Office Building Obstetrics and Gynecology [address] [facility], [address] [place] [address] Nneka Gipson MD [address] [place] [address] 12/25/2024 1:00 PM EST Office Visit [facility] Nephrology, Bone & Mineral Metabolism [address] [facility], [address] [place] [address] Scheduled Referrals Name Type Priority Associated Diagnoses Order Schedule Ambulatory referral to Nephrology Clinic Outpatient Referral Routine Hypokalemia 1 Occurrences starting 09/14/2024 until 03/18/2026 documented as of this encounter Visit Diagnoses Diagnosis Hypokalemia- Primary Hypopotassemia documented in this encounter
--- OUTSIDE RECORDS SUMMARY | 2024-10-29 12:16 | XMS_ITS | Encounter Summary ---
Author Organization [facility] Address [address] [place] [address] Care Team Providers Care Senior Sales Representative Name Role Phone Elder Kadedev Coy APRN Primary Care Provider +[phone]- [phone] Lizz Trinh RN Unavailable Unavailable Reason for Referral * Consultation (Routine) - Authorized Specialty Diagnoses / Procedures Referred By Tarik pedersen Referred To Contact Nephrology Diagnoses History of proteinuria syndrome care, subsequent , second trimester Staci Jain MD [address] [address] Phone: tel: fax: [facility] Nephrology, Bone & Mineral Metabolism [address] [facility], [address] [place] [address] Phone: tel: fax: Referral ID Status Reason Start Date Expiration Date Visits Requested Visits Authorized [id number] Authorized Specialty Services Required 07/22/2024 01/21/2026 1 1 Encounter Details Date Type Department Care Team (Late st Contact Info) Description 07/22/2024 Community Orders [facility] [address] [place] [address] Staci Jain MD [address] [place] [address] History of proteinuria syndrome (Primary Dx); care, [...] Upcoming Encounters Date Type Department Care Team ([facility] st Contact Info) Description 10/31/2024 Hospital Encounter [facility] Labor and Delivery [address] [place] [address] 11/21/2024 11:15 AM EDT Visit Medical Office Building Obstetrics and Gynecology [address] [facility], [address] [place] [address] Nneka Gipson MD [address] [place] [address] 12/25/2024 1:00 PM EST Office Visit [facility] Nephrology, Bone & Mineral Metabolism [address] [facility], [address] [place] [address] Scheduled Referrals Name Type Priority [...] as of this encounter Care Teams Senior Sales Representative Relationship Specialty Start Date End Date Norma Friedman APRN [address] [place] [address] PCP - General 09/23/24 Lizz Trinh, RN [facility] Registered Nurse Cardiology 09/26/24 documented as of this encounter
--- OUTSIDE RECORDS SUMMARY | 2024-10-29 12:16 | XMS_ITS | Encounter Summary ---
[facility] Address [address] [place] [id number] Care Team Providers Care Client Portfolio Manager Name Role Phone IvyKade goldbergjoseseven JOLENE Primary Care Provider + [phone] Encounter Details Date Type Department Care Team (Late st Contact Info) Description 09/03/2024 Results Follow-Up [facility] OBGYN [address] [place] [address] Staci Jain MD 1700 [facility] [address] [place] [address] Social History Tobacco Use Types Packs/Day Years Used Date Smoking Tobacco: Never Smokeless Tobacco: Never Alcohol Use Standard Drinks/Week Comments Never 0 (1 standard drink = 0.6 oz pur e alcohol) [facility] Utilities Answer Date Recorded In the past 12 months has [employer], gas, oil, or water [employer] threatened to shut off services in [...] Visit [facility] GASTROENTEROLOGY [address] [address] Robbin Escalante MD [address] [address] documented as of this encounter Visit Diagnoses Not on filedocumented in this encounter Additional Health Concerns Assessment Noted Time PHQ-2 Depression Total Score: 2 05/28/19 4:39 PM EDT documented as of this encounter Care Teams Client Portfolio Manager Relationship Specialty Start Date End Date Norma Friedman APRN [address] [place] [address] [place] [address] PCP - General Family Medicine 05/14/24 documented as of this encounter
--- OUTSIDE RECORDS SUMMARY | 2024-10-29 12:16 | XMS_ITS | Encounter Summary ---
[facility] Address [address] [place] [id number] Care Team Providers Care Superintendent Gas Distribution Name Role Phone IvyKade goldbergjoseseven JOLENE Primary Care Provider + [phone] Encounter Details Date Type Department Care Team (Late st Contact Info) Description 09/26/2024 Documentation [facility] LABOR DELIVERY [address] [place] [address] Christy Zabala, RN Social History Tobacco Use Types Packs/Day Years Used Date Smoking Tobacco: Never Smokeless Tobacco: Never Alcohol Use Standard Drinks/Week Comments Never 0 (1 standard drink = 0.6 oz pur e alcohol) [facility] Utilities Answer Date Recorded In the past [...] hard at all 05/28/2024 [facility] of Occupat ional Health - Occupational Stress [...] Review of chart reveals patient ZAIN to [facility] to continue care. Will plan to review chart around [facility]C for delivery information. documented in this encounter Plan of Treatment Upcoming Encounters Date Type Department Care Team (Late st Contact Info) Description 01/20/2025 3:30 PM EST Office Visit [facility] GASTROENTEROLOGY [address] [address] Robbin Escalante MD [address] [address] documented as of this encounter Visit Diagnoses Not on filedocumented in this encounter Additional Health Concerns Assessment Noted Time PHQ-2 Depression Total Score: 2 05/28/19 25 4:39 PM EDT documented as of this encounter Care Teams Superintendent Gas Distribution Relationship Specialty Start Date End Date Norma Friedman APRN [address] [place] [address] [place] [address] PCP - General Family Medicine 05/14/24 documented as of this encounter
--- OUTSIDE RECORDS SUMMARY | 2024-10-29 12:16 | XMS_ITS | Encounter Summary ---
[facility] Organization [facility] Address [address] [place] [id number] Care Team Providers Care V Belt Inspector Name Role Phone IvyNorma goldberg JOLENE Primary Care Provider + [phone] Reason for Visit * Reason Onset Date Comments Advice Only 10/10/2024 Encounter Details Date Type Department Care Team (Late st Contact Info) Description 10/10/2024 Telephone [facility] MATERNAL MEDICINE [address] [facility] [place] [address] [place] [address] Lyudmila Germain, shade bander Only Social History Tobacco Use Types Packs/Day Years Used Date Smoking Tobacco: Never Smokeless Tobacco: Never Alcohol Use Standard Drinks/Week Comments Never 0 (1 standard drink = 0.6 oz pur e alcohol) [facility] Utilities Answer Date Recorded In the past 12 months has [email or web address], gas, oil, or water [employer] threatened to shut off services in your [...] at all 05/28/2024 [facility] [place] of Occupat ional Health - Occupational Stress [...] GED or equivalent No 05/28/2024 Preferred Language Divehi 05/28/2024 PHQ-2 Answer Date Recorded Patient Health [...] Late entry: Patient called desiring appointment with [facility] due to hypokalemia and hypomagnesemia requiring infusions every other day. Per cash applications coordinator, referral was received here last week but our physicians determined patient needs to continue receiving [facility] care at as she sees otherspeciality physicians (cardiology, nephrology) there as well. Discussed this with patient who states Dr. Weller () refused to see her again and she has no options. Patient reported her physicians at [facility] told her if she has another cardiac event she will . Upon reviewing notes from specialists at , cardiology note states patient will wear drug safety associate and return in 4 weeks to discuss r esults and delivery plans and monitoring. Patient states cardiology refuses to see her until she ispostpartum - although it appears she has an appointment on 10/24. Per note from nephrology at , limited options for treatment other than continued repletion. Informed patient our office will reach out to [facility] at to determine if there is an issue in scheduling her there and we will call her back. After our office talked to [facility], a nurse there states there is no issue with her scheduling and she is more than welcome to come back for appointments. Called patient back, informed her she is welcome to schedule a follow-up at [facility] and gave her their office number. documented in this encounter Plan of Treatment Upcoming Encounters Date Type Department Care Team (Late st Contact Info) Description 01/20/2025 3:30 PM EST Office Visit [facility] GASTROENTEROLOGY [address] [facility] [address] [place] [address] Robbin Escalante MD [address]20 [facility] [address] [place] [address] documented as of this encounter Visit Diagnoses Not on filedocumented in this encounter Additional Health Concerns Assessment Noted Time PHQ-2 Depression Total Score: 2 05/28/19 4:39 PM EDT documented as of this encounter Care Teams V Belt Inspector Relationship Specialty Start Date End Date Norma Friedman APRN [address] [place] [address] [place] [address] PCP - General Family Medicine 05/14/24 documented as of this encounter
--- OUTSIDE RECORDS SUMMARY | 2024-10-29 12:16 | XMS_ITS | Encounter Summary ---
Author Organization Healthcare Address [address] [place] [address] Care Team Providers Care Director Of Finance Name Role Phone Norma Friedman APRN Primary Care Provider +1- [phone] Encounter Details Date Type Department Care Team [...] more drinks on one occasion? Never 09/23/2024 [place] Depression Scale Answer Date Recorded [place] Depression Scale Total 0 09/23/2024 The thought [...] Encounter [facility] Labor and Delivery [address] [place] [address] 11/21/2024 11:15 AM EDT Visit Medical Office Building Obstetrics and Gynecology [address] [facility], [address] [place] [address] Nneka Gipson MD [address] [place] [address] 12/25/2024 1:00 PM EST Office Visit [facility] Nephrology, Bone & Mineral Metabolism [address] [facility], [address] [place] [address] documented as of this encounter Visit Diagnoses Not on filedocumented in this encounter Additional Health Concerns Assessment Noted Time A Body Mass Index follow-up plan has been documented for the patient 09/23/2024 8:28 PM EDT documented as of this encounter Care Teams Director Of Finance Relationship Specialty Start Date End Date Norma Friedman APRN [address] [place] [address] PCP - General 09/23/24 documented as of this encounter
--- OUTSIDE RECORDS SUMMARY | 2024-10-29 12:16 | XMS_ITS | Encounter Summary ---
Author Organization Healthcare Address [address] [place] [address] Care Team Providers Care Event Decorator And Designer Name Role Phone Norma Friedman JOLENE Primary Care Provider +[phone]- [phone] Lizz Trinh RN Unavailable Unavailable Reason for Visit * Reason Onset Date Comments [facility] Care coordiantion 10/17/2024 Encounter Details Date Type Department Care Team ([facility] st Contact Info) Description 10/17/2024 Telephone Medical Office Building Obstetrics and Gynecology [address] [facility], [address] [place] [address] Tracy Segovia, RN [facility] 1st FLR [facility] Care coordiantion Social History Tobacco Use Types [...] reviewed that Whitney was seen today by [facility],she had a non reactive NST, and BPP 6/8 ( breathing not seen). Discussed that Whitney declined presenting to [facility] for extended monitoring today or returning to our clinic tomorrow (10/18/24) for a repeat NST. Whitney is agreeable for do an NST with her local OB provider as she is already scheduled for an infusion with their office. Qi agreeable to schedule patient for NST on10/18/24. Offered to send notes from today's appointment, Qi provided me with her office's fax# ([phone]). No additional questions at this time. documented in this encounter Plan of Treatment Upcoming Encounters Date Type Department Care Team (Late st Contact Info) Description 10/31/2024 Hospital Encounter [facility] Labor and Delivery [address] [place] [address] 11/21/2024 11:15 AM EDT Visit Medical Office Building Obstetrics and Gynecology [address] [facility], [address] [place] [address] Nneka Gipson MD [address] [place] [address] 12/25/2024 1:00 PM EST Office Visit [facility] Nephrology, Bone & Mineral Metabolism [address] [facility], [address] [place] [address] documented as of this encounter Visit Diagnoses Not on filedocumented in this encounter Additional Health Concerns Assessment Noted Time A fall risk assessment has been complete d for the patient 09/26/2024 8:15 AM EDT A Body Mass Index follow-up plan has been documented for the patient 10/20/2024 9:52 AM EDT documented as of this encounter Care Teams Event Decorator And Designer Relationship Specialty Start Date End Date Norma Friedman APRN [address] [place] [address] PCP - General 09/23/24 Lizz Trinh, RN [facility] Registered Nurse Cardiology 09/26/24 documented as of this encounter
--- OUTSIDE RECORDS SUMMARY | 2024-10-29 12:16 | XMS_ITS ---
Author Organization [facility] Address [address] [place] [address] Care Team Providers Care Vascular Physician Name Role Phone Norma Friedman APRN Primary Care Provider [phone] Motherhood Connection Status:Engaged (Active) Start date:05/23/2024 Enrollment date:05/23/2024 Case Team Name Relationship Phone Bindu Castellon RN Nurse Navigator Christy Zabala RN(Responsible Staff) Nurse Navig ator Continued Care and Services Coordination
--- OUTSIDE RECORDS SUMMARY | 2024-10-29 12:16 | XMS_ITS | Encounter Summary ---
Author Organization Healthcare Address [address] [place] [address] Care Team Providers Care Blacksmith Helper Name Role Phone Unavailable Primary Care Provider Unavailabl e Encounter Details Date Type Department Care Team (Late Contact Info) Description 09/17/2024 Telephone [facility] Nephrology, Bone & Mineral Metabolism [address] [facility], [address] [place] [address] Sherley Gold, INTERACTIVE WEB DEVELOPER GS - 7 MAIN MEDICAL-SURGICAL Social [...] Encounter [facility] Labor and Delivery [address] [place] [address] 11/21/2024 11:15 AM EDT Visit Medical Office Building Obstetrics and Gynecology [address] [facility], [address] [place] [address] Nneka Gipson MD [address] [place] [address] 12/25/2024 1:00 PM EST Office Visit [facility] Nephrology, Bone & Mineral Metabolism [address] [facility], [address] [place] [address] documented as of this encounter Visit Diagnoses Not on filedocumented in this encounter
--- OUTSIDE RECORDS SUMMARY | 2024-10-29 12:16 | XMS_ITS | Encounter Summary ---
Author Organization Healthcare Address [address] [place] [address] Care Team Providers Care Commercial Property Administrator Name Role Phone Norma Friedman APRN Primary Care Provider +1- [phone] Encounter Details Date Type Department Care Team [...] more drinks on one occasion? Never 09/23/2024 [place] Depression Scale Answer Date Recorded [place] Depression Scale Total 0 09/23/2024 The thought [...] [facility] Labor and Delivery [address] [place] [address] 11/21/2024 11:15 AM EDT Visit Medical Office Building Obstetrics and Gynecology [address] [facility], [address] [place] [address] Nneka Gipson MD [address] [place] [address] 12/25/2024 1:00 PM EST Office Visit [facility] Nephrology, Bone & Mineral Metabolism [address] [facility], [address] [place] [address] documented as of this encounter Visit Diagnoses Not on filedocumented in this encounter Additional Health Concerns Assessment Noted Time A fall risk assessment has been complete d for the patient 09/25/2024 3:05 PM EDT A Body Mass Index follow-up plan has been documented for the patient 10/05/2024 8:54 PM EDT documented as of this encounter Care Teams Commercial Property Administrator Relationship Specialty Start Date End Date Norma Friedman APRN [address] [place] [address] PCP - General 09/23/24 documented as of this encounter
--- OUTSIDE RECORDS SUMMARY | 2024-10-29 12:16 | XMS_ITS | Encounter Summary ---
Author Organization [facility] Address [address] [place] [id number] Care Team Providers Care Project Control Officer Name Role Phone Unavailable Primary Care Provider Unavailabl e Encounter Details Date Type Department Care Team (Late st Contact Info) Description 09/17/2024 Telephone Medical Office Building Obstetrics and Gynecology [address] [facility], [address] [place] [address] Josefina Shay RN [facility] [address] [place] [address] Social History Tobacco Use Types Packs/Day Years [...] recently had a full Nephrology work-up at [facility] that was negative and was not interested [...] Upcoming Encounters Date Type Department Care Team ([facility] st Contact Info) Description 10/31/2024 Hospital Encounter [facility] Labor and Delivery [address] [place] [address] 11/21/2024 11:15 AM EDT Visit Medical Office Building Obstetrics and Gynecology [address] [facility], [address] [place] [address] Nneka Gipson MD [address] [place] [address] 12/25/2024 1:00 PM EST Office Visit Professional [facility] Nephrology, Bone & Mineral Metabolism [address] [facility], [address] [place] [address] documented as of this encounter Visit Diagnoses Not on filedocumented in this encounter
--- OUTSIDE RECORDS SUMMARY | 2024-10-29 12:16 | XMS_ITS | Encounter Summary ---
Author [facility] Address [address] [place] [id number] Care Team Providers Care National Guard Member Name Role Phone Ivyashlyn Norma FERNÁNDEZ Primary Care Provider + [phone] Encounter Details Date Type Department Care Team (Late st Contact Info) Description 09/02/2024 Telephone [facility] OBGYN [address] [address] Staci Jain MD [address] [place] [id number] Social History Tobacco Use Types Packs/Day Years Used Date Smoking Tobacco: Never Smokeless Tobacco: Never Alcohol Use Standard Drinks/Week Comments Never 0 (1 standard drink = 0.6 oz pur e alcohol) [facility] Utilities Answer Date Recorded In the past 12 months has [employer], gas, oil, or water [employer] threatened to shut off services in [...] PM EDT She just got d/c'd from [facility] 2 hours ago and they gave her a total 10 MLE of K+ and 3 units of Mag and 2 liters of LR. She has decided to transfer care to [facility] as it iscloser to her like 15 min away. She wants you (Dr. Jain) to know this has nothing to you but rather the nurses and building construction estimator doctor did not relay the labs to you in a faster fashion. She said you can call her if you want and she is not angry. Dr. Jain was notified. * Telephone Encounter - Frederick Gruber RN - 09/02/2024 3:10 PM EDT [employer] message sent to the pt regarding outpt infusion apt tomorrow at [place]. documented in this encounter Plan of Treatment Upcoming Encounters Date Type Department Care Team (Late st Contact Info) Description 01/20/2025 3:30 PM EST Office Visit [facility] GASTROENTEROLOGY [address] [place] [address] [place] [address] Robbin Escalante MD [address]20 [facility] [address] [place] [address] documented as of this encounter Visit Diagnoses Not on filedocumented in this encounter Additional Health Concerns Assessment Noted Time PHQ-2 Depression Total Score: 2 05/28/19 25 4:39 PM EDT documented as of this encounter Care Teams National Guard Member Relationship Specialty Start Date End Date Norma Friedman APRN [address] [place] [address] [place] [address] PCP - General Family Medicine 05/14/24 documented as of this encounter
--- OUTSIDE RECORDS SUMMARY | 2024-10-29 12:17 | XMS_ITS | Encounter Summary ---
Author Organization Healthcare Address [address] [place] [address] Care Team Providers Care Hospitalist Medical Director Name Role Phone Norma Friedman JOLENE Primary Care Provider +1- [phone] Lizz Trinh RN Unavailable Unavailable Encounter Details [...] more drinks on one occasion? Never 09/23/2024 Cool Depression Scale Answer Date Recorded Cool Depression Scale Total 0 09/23/2024 The thought [...] Encounter [facility] Labor and Delivery [address] [place] [address] 11/21/2024 11:15 AM EDT Visit Medical Office Building Obstetrics and Gynecology [address] [facility], [address] [place] [address] Nneka Gipson MD [address] [place] [address] 12/25/2024 1:00 PM EST Office Visit [facility] [place] Nephrology, Bone & Mineral Metabolism [address] [facility], [address] [place] [address] documented as of this encounter [...] documented as of this encounter Care Teams Hospitalist Medical Director Relationship Specialty Start Date End Date Norma Friedman, ASSISTANT PROFESSOR OF SURGERY [address] [place] [address] PCP - General 09/23/24 Lizz Trinh, RN [facility] Registered Nurse Cardiology 09/26/24 documented as of this encounter
--- OUTSIDE RECORDS SUMMARY | 2024-10-29 12:17 | XMS_ITS | Encounter Summary ---
[facility] Address [address] [place] [id number] Care Team Providers Care Ethics Manager Name Role Phone Elder Norma FERNÁNDEZ Primary Care Provider + [phone] Encounter Details Date Type Department Care Team (Late st Contact Info) Description 07/07/2024 Results Follow-Up [facility] OBGYN [address] [place] [address] [place] [id number] Kelly Delgado APRN [address] [place] [address] Social History Tobacco Use Types Packs/Day Years Used Date Smoking Tobacco: Never Smokeless Tobacco: Never Alcohol Use Standard Drinks/Week Comments Never 0 (1 standard drink = 0.6 oz pur e alcohol) [facility] Utilities Answer Date Recorded In the past 12 months has [employer], gas, oil, or water [employer] threatened to shut off services in your [...] Visit [facility] GASTROENTEROLOGY [address] [address] Robbin Escaalnte MD [address] [address] documented as of this encounter Visit Diagnoses Not on filedocumented in this encounter Additional Health Concerns Assessment Noted Time PHQ-2 Depression Total Score: 2 05/28/19 25 4:39 PM EDT documented as of this encounter Care Teams Ethics Manager Relationship Specialty Start Date End Date Norma Friedman APRN [address] [place] [address] [place]FA[place] APPIAH [address] PCP - General Family Medicine 05/14/24 documented as of this encounter
--- OUTSIDE RECORDS SUMMARY | 2024-10-29 12:17 | XMS_ITS | Encounter Summary ---
Author Organization Healthcare Address [address] [place] [address] Care Team Providers Care Home Lending Officer Name Role Phone Norma Friedman JOLENE Primary Care Provider [phone] Lizz Trinh RN Unavailable Unavailable Encounter Details [...] more drinks on one occasion? Never 09/23/2024 [place] Depression Scale Answer Date Recorded [place] Depression Scale Total 0 09/23/2024 The thought [...] [facility] [address] [place] [address] 11/21/2024 11:15 AM EDT Visit [facility] [address] , [address] [place] [address] Nneka Gipson MD [address] [place] [address] 12/25/2024 1:00 PM EST Office Visit [facility] [address] [facility], [address] [place] [address] documented as of this encounter Visit Diagnoses Not on filedocumented in this encounter Additional Health Concerns Assessment Noted Time A fall risk assessment has been complete d for the patient 09/26/2024 8:15 AM EDT A Body Mass Index follow-up plan has been documented for the patient 10/20/2024 9:52 AM EDT documented as of this encounter Care Teams Home Lending Officer Relationship Specialty Start Date End Date Norma Friedman APRN [address] [place] [address] PCP - General 09/23/24 Lizz Trinh, RN [facility] Registered Nurse Cardiology 09/26/24 documented as of this encounter
--- OUTSIDE RECORDS SUMMARY | 2024-10-29 12:17 | XMS_ITS | Encounter Summary ---
Author Organization Healthcare Address [address] [place] [address] Care Team Providers Care Vacuum Cleaner Assembler Name Role Phone Norma Friedman JOLENE Primary Care Provider [phone]- [phone] Lizz Trinh RN Unavailable Unavailable Encounter Details Date Type Department Care Team (Late st Contact Info) Description 10/23/2024 Orders Only [facility] Obstetrics & Gynecology [address] [place] [address] Ana Deal MD [address] [place] [address] Social History Tobacco Use Types Packs/Day Years [...] more drinks on one occasion? Never 09/23/2024 [place] Depression Scale Answer Date Recorded [place] Depression Scale Total 0 09/23/2024 The thought [...] [facility] [address] [place] [address] 11/21/2024 11:15 AM EDT Visit [facility] Obstetrics and Gynecology [address] [facility], [address] [place] [address] Nneka Gipson MD [address] [place] [address] 12/25/2024 1:00 PM EST Office Visit [facility] [facility] [address] [facility], [address] [place] [address] documented as of this encounter Visit Diagnoses Not on filedocumented in this encounter Additional Health Concerns Assessment Noted Time A fall risk assessment has been complete d for the patient 09/26/2024 8:15 AM EDT A Body Mass Index follow-up plan has been documented for the patient 10/20/2024 9:52 AM EDT documented as of this encounter Care Teams Vacuum Cleaner Assembler Relationship Specialty Start Date End Date Norma Friedman APRN [address] [place] [id number] PCP - General 09/23/24 Lizz Trinh, RN [facility] Registered Nurse Cardiology 09/26/24 documented as of this encounter
--- OUTSIDE RECORDS SUMMARY | 2024-10-29 12:17 | XMS_ITS | Clinical Summary ---
Author Organization [facility] Address [address] [place] [address] Care Team Providers Care Numerical Control Router Operator Name Role Phone Norma burger JOLENE Primary Care Provider [phone] Lizz Trinh RN Unavailable Unavailable Allergies Active Allergy Reactions Criticality Noted Date Comments Peanut Allergen Powder-Dnfp Hives Medium 09/23/2024 Tobacco Other - please document in the comment field,Shortness of breath High 05/28/2024 SOB when exposed to smoke, contact dermatitis with skin contact Medications Prenat MV-Min [id number] ( COMPLETE PO) 12/26/19 19 Active thiamine [...] Encounters Date Type Department Care Team Description 10/28/2024 Telephone Medical Office Building Obstetrics and Gynecology [address], [address] [place] [address] Tracy Segovia, RN Rescheduling IOL 10/24/2024 9:45 AM EDT Routine Medical Office Building Obstetrics and Gynecology [address], [address] [place] [address] Laury Cruz MD Supervision of high risk , antepartum (Primary Dx); 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), sequela; Renal tubular acidosis; Hypokalemia; Cardiac arrhythmia, unspecified cardiac arrhythmia type; Cholestasis during in third trimester 10/24/2024 8:00 AM EDT Office Visit [facility] [place] [address], [address] [place] [address] Dilip Vasquez MD Palpitations (Primary Dx) 10/24/2024 Orders Only Medical Office Building Obstetrics and Gynecology [address], [address] [place] [address] Kaitlyn Richter MD 10/24/2024 Travel 10/23/2024 Telephone [facility] Obstetrics & Gynecology [address] [place] [address] Ana Deal MD 10/23/2024 Orders Only [facility] Obstetrics & Gynecology [address] [place] [address] Ana Deal MD 10/23/2024 Travel 10/21/2024 Telephone nurse esthetician (l&d) Virtual Dept. [address] [place] [address] Ana Deal MD 10/19/2024 1:03 AM EDT Anesthesia Event [facility] [address] [place] [address] Everett Farrar MD 10/19/2024 Travel 10/18/2024 Travel 10/17/2024 3:47 PM EDT - 10/20/2024 10:16 AM EDT Hospital Encounter [facility] [address] [place] [address] Hilton Montelongo MD Discharge Disposition: Home or Self Care 10/17/2024 10:30 AM EDT - 10/17/2024 3:46 PM EDT Hospital Encounter Medical [facility] Building Obstetrics and Gynecology [address], [address] [place] [address] NST (non-stress test) nonreactive Discharge Disposition: Home or Self Care 10/17/2024 9:30 AM EDT NST Medical Office Building Obstetrics and Gynecology [address], [address] [place] [address] growth restriction antepartum (Primary Dx) 10/17/2024 9:15 AM EDT Routine Medical Office Building Obstetrics and Gynecology [address], [address] [place] [address] Dilip Gipson MD NST (non-stress test) nonreactive (Primary Dx); Supervision of high risk , antepartum 10/17/2024 Telephone [facility] Obstetrics and Gynecology [address], [address] [place] [address] Tracy Segovia, RN 10/17/2024 Telephone Medical [facility] Obstetrics and Gynecology [address], [address] [place] [address] Tracy Segovia, RN [facility] Care coordiantion 10/17/2024 Travel 10/16/2024 Results Follow-Up [facility] [place] [address] [place] [address] Dilip Vasquez MD 09/26/2024 9:06 AM EDT - 09/26/2024 11:59 PM EDT Hospital Encounter Medical Office Building Cardiac Diagnostic Testing Medical Office Building Echo Lab [address], [address] [place] [address] Palpitations; Syncope and collapse Discharge Disposition: Home or Self Care 09/26/2024 8:00 AM EDT Office Visit [facility] [place] [address], [address] [place] [address] Dilip Vasquez MD Syncope and collapse (Primary Dx); Atrial fibrillation, unspecified type (CMS/HCC); Palpitations 09/26/2024 Travel 09/25/2024 2:20 PM EDT Office Visit [facility] Nephrology, Bone [facility] Met[facility] [address], [address] [place] [address] Bill Patrick MD Hypokalemia (Primary Dx) 09/25/2024 Travel 09/23/2024 10:00 AM EDT Office Visit Medical [facility] Building Obstetrics and Gynecology [address], [address] [place] [address] Liborio Weller MD Supervision of high risk , antepartum (Primary Dx); Cardiac arrhythmia, unspecified cardiac arrhythmia type 09/23/2024 Travel 09/17/2024 Telephone [facility] Nephrology, Bone & Mineral Metabolism [address], [address] [place] [address] Sherley Gold, OFFICE SERVICE COORDINATOR 09/17/2024 Telephone Medical [facility] Obstetrics and Gynecology [address], [address] [place] [address] Josefina Shay, RN 09/14/2024 Telephone [facility] Obstetrics & Gynecology [address] [place] [address] Susi Wren MD from Last 3 Months Immunizations Immunization Administration Dates Next Due HPV 9-Valent 03/29/2017 HPV, Quadrivalent 08/01/2016,06/23/2016 Hep A, Adult 01/15/2018 Influenza, seasonal, injectable 03/28/2012 Influenza, seasonal, injecta ble, preservative free 03/30/2016 MMR 06/01/2022,04/23/2016 TD (adult), 2 Lf tetanus tox oid, preservative free, adsorbed 06/03/2009 Tdap 09/09/2024,,10/03/2020,2017,04/23/2016,05/21/2014 Family History Medical History Relation Name Comments [...] more drinks on one occasion? Never 09/23/2024 Rhododendron Depression Scale Answer Date Recorded Rhododendron Depression Scale Total 0 09/23/2024 The thought [...] Encounter [facility] [address] [place] [address] 11/21/2024 11:15 AM EDT Visit Medical Office Building Obstetrics and Gynecology [address], [address] [place] [address] Dilip Gipson MD [address] [place] [address] 12/25/2024 1:00 PM EST Office Visit [facility] Nephrology, Bone & Mineral Metabolism [address], [address] [place] [address] Health Maintenance Due Date Last Done Comments [facility]-Infant/Child/Adol SDOH Screenings 1991 [facility]- SDOH Screenings 2009 [facility]-Adult SDOH Screenings 2009 [facility]-Hepatitis B Vaccines (1 of 3 - 19+ 3-dose series) 2010 [facility]-Pap Smear 2012 [facility]-Hepatitis A Vaccines (2 of 2 - Risk 2-dose series) 07/16/2018 01/15/2018 [facility]-Cervical Cancer Screening 2021 [facility]-HPV/Cotest 2021 [facility]-Varicella Vaccines (1 of 2 - 13+ 2-dose series) 06/29/2022 [id number] Vaccine (2 - 2024- season) 2024 05/04/2022 [...] Screening Completed 01/22/2019 [facility]-Obesity Intervention Completed 025, 10/24/2024, 10/17/2024, Additional history exists [facility]-HIB Vaccines Aged Out [...] Ketones, Urine Negative Negative mg/dL POCT Specific [place], Urine 1.015 POCT Blood, Urine Negative Negative POCT pH, Urine 8.5(A) 5.0 to 8.0 POCT Protein, Urine Trace(A) Negative mg/dL POCT Urobilinogen, Urine 0.2 0.2, 1 E.U./dL POCT Nitrite, Urine Negative Negative POCT Leukocyte Esterase, Urine Negative Negative Test Strip Lot Number [id number] Test Strip Lot Expiration 08/2025 Urine Urine specimen obtained by clean catch procedure / Unknown 10/24/2024 10:13 AM EDT Laury Cruz MD POINT OF CARE TEST ENTER/EDIT ORDERABLES Final Result * N-Terminal Probnp, Plasma (10/24/2024 8:38 AM EDT) Only the most recent of2 resultswithin the time period is included. N-Terminal, PROBNP, Plasma 175 0 - 449 pg/mL 10/24/2024 11:40 AM EDT [facility] Blood Venous blood specimen / Unknown Venipuncture / Unknown 10/24/2024 8:38 AM EDT 10/24/2024 8:40 AM EDT Dilip Vasquez MD LAB BLOOD ORDERABLES Final Result [facility] [address] [place] [address] * Troponin T, High Sensitivity, Cardiac Risk Assessment (10/24/2024 8:38 AM EDT) Troponin T, High Sensitivity, 0 Hour <6 <14 ng/L 10/24/2024 11:40 AM EDT [facility] Blood Venous blood specimen / Unknown Venipuncture / Unknown 10/24/2024 8:38 AM EDT 10/24/2024 8:40 AM EDT Dilip Vasquez MD LAB BLOOD ORDERABLES Final Result Performing Organization Address City/[facility]/ZIP Co de Phone Number [facility] [address] [place] [address] * (ABNORMAL) Herpes Simplex Virus by PCR (Serum) (10/19/2024 9:28 PM EDT) Pathologist [facility] Herpes Simplex Virus 1 (HSV-1) PCR Result Detected(AA) Not Detected 10/21/2024 11:30 AM EDT [facility] Comment:Previously prelim ve rified as Not Detected on 10/20/2024 at 1221 EDT. Herpes Simplex Virus 2 (HSV-2) PCR Result Not Detected Not Detected 10/21/2024 11:30 AM EDT [facility] Serum Venous blood specimen / Unknown 10/19/2024 9:28 PM EDT 10/19/2024 11:58 PM EDT Narrative [facility] - 10/21/2024 11:30 AM EDT This PCR assay was developed and its performance characteristics determined by [facility] as appropriate for clinical purposes. This assay has not been cleared or approved by the FDA, but is performed in a CLIA regulated laboratory that is qualified to perform high-complexity testing. This PCR assay was developed and its performance characteristics determined by [facility] as appropriate for clinical purposes. This assay has not been cleared or approved by the FDA, but is performed in a CLIA regulated laboratory that is qualified to perform high-complexity testing. This PCR assay was developed and its performance characteristics determined by [facility] as appropriate for clinical purposes. This assay has not been cleared or approved by the FDA, but is performed in a CLIA regulated laboratory that is qualified to perform high-complexity testing. Hilton Montelongo MD LAB MICROBIOLOGY - GENERAL OR DERABLES Final Result [facility] [address] [place] [address] * Brooke Mejias Virus (EBV) Quantitative PCR (10/19/2024 9:28 PM EDT) Brooke Mejias Virus, Blood, Quant DNA Interpretation Not Detected Not Detected 10/23/2024 12:34 PM EDT [facility] Blood Venous blood specimen / Unknown Venipuncture / Unknown 10/19/2024 9:28 PM EDT 10/19/2024 11:58 PM EDT Narrative [facility] - 10/23/2024 12:34 PM [...] developed and it's performance characteristics determined by [facility] as appropriate for clinical purposes. [...] developed and it's performance characteristics determined by [facility] as appropriate for clinical purposes. This assay has not been cleared or approved by the FDA, but is performed in a CLIA regulated laboratory that is qualified to perform high-complexity testing. Hilton Montelongo MD LAB BLOOD ORDERABLES Final Re sult Performing Organization Address [facility] Co de Phone Number [facility] [address] [place] [address] * Cytomegalovirus (CMV) Quantitative PCR (10/19/2024 9:28 PM EDT) Pathologist [facility] Cytomegalovirus (CMV) Quantitative Interpretation Not Detected Not Detected 10/21/2024 12:44 PM EDT [facility] Blood Venous blood specimen / Unknown Venipuncture / Unknown 10/19/2024 9:28 PM EDT 10/19/2024 11:58 PM EDT Narrative [facility] - 10/21/2024 12:44 PM EDT [employer] M2000 CMV test is a Real Time [...] ORDERABLES Final Re sult Performing Organization Address [facility] [place] [address] * Phosphorus, Plasma (10/19/2024 9:28 PM EDT) Only the most recent of11 resultswithin the time period is included. Pathologist [facility] Phosphorus, Plasma 2.5 2.5 - 4.5 mg/dL 10/19/2024 10:07 PM EDT [facility] Blood Venous blood specimen / Unknown Venipuncture / Unknown 10/19/2024 9:28 PM EDT 10/19/2024 9:38 PM EDT us Santos Herrmann MD LAB BLOOD ORDERABLES Final Resu lt Performing Organization Address City/[facility]/ZIP Co de Phone Number [facility] [address] [place] [address] * (ABNORMAL) Magnesium (10/19/2024 9:28 PM EDT) Only the most recent of12 resultswithin the time period is included. Magnesium, Plasma 1.7(L) 1.9 - 2.4 mg/dL 10/19/2024 10:07 PM EDT [facility] Blood Venous blood specimen / Unknown Venipuncture / Unknown 10/19/2024 9:28 PM EDT 10/19/2024 9:38 PM EDT us Santos Herrmann MD LAB BLOOD ORDERABLES Final Resu Performing Organization Address [facility] Co de Phone Number [facility] [address] [place] [address] * (ABNORMAL) Basic metabolic panel (10/19/2024 9:28 PM EDT) Only the most recent of9 resultswithin the time period is included. Glucose, Plasma 78 74 - 99 mg/dL 10/19/2024 10:07 PM EDT [facility] BUN, Plasma 4(L) 7 - 21 mg/dL 10/19/2024 10:07 PM EDT [facility] Creatinine, Plasma 0.61 0.60 - 1.10 mg/dL 10/19/2024 10:07 PM EDT [facility] BUN/Creatinine Ratio 7 10/19/2024 10:07 PM EDT [facility] Sodium, Plasma 137 136 - 145 mmol/L 10/19/2024 10:07 PM EDT [facility] Potassium, Plasma 4.3 3.6 - 4.9 mmol/L 10/19/2024 10:07 PM EDT [facility] Chloride, Plasma 108(H) 97 - 107 mmol/L 10/19/2024 10:07 PM EDT [facility] CO2, Plasma 20(L) 22 - 29 mmol/L 10/19/2024 10:07 PM EDT [facility] Anion Gap 9 6 - 16 mmol/L 10/19/2024 10:07 PM EDT [facility] Total Calcium, Plasma 7.8(L) 8.9 - 10.2 mg/dL 10/19/2024 10:07 PM EDT [facility] eGFRcr 121.2 mL/min/1.7 3m*2 10/19/2024 10:07 PM EDT [facility] Comment:Reported eGFRcr in m L/min/1.73m2 is based the CKD-EPI 2020 equation that does not use a race coefficient. Blood Venous blood specimen / Unknown Venipuncture / Unknown 10/19/2024 9:28 PM EDT 10/19/2024 9:38 PM EDT Santos Herrmann MD LAB BLOOD ORDERABLES Final Resu lt Performing Organization Address City/[facility] Co de Phone Number [facility] [address] [place] [address] * ECG Adult (10/19/2024 6:45 PM EDT) Only the most recent of5 resultswithin the time period is included. EKG DIAGNOSIS CLASS Normal MUSE ECG Ventricular Rate 82 BPM MUSE ECG Atrial Rate 82 BPM MUSE ECG MI Interval 138 ms MUSE ECG QRSD Interval 80 ms MUSE ECG QT Interval 360 ms MUSE ECG QTC Interval 420 ms MUSE ECG P [place] 46 degrees MUSE ECG R [place] 29 degrees MUSE ECG T Wave [place] 36 degrees MUSE ECG Diagnosis Normal sinus rhythm MUSE ECG Diagnosis Normal ECG MUSE ECG Diagnosis MUSE ECG Diagnosis Confirmed by Noel Osman ([id number]) on 10/20/2024 12:15:29 PM MUSE ECG 10/19/2024 6:45 PM EDT 10/20/2024 12:15 PM EDT us Hilton Montelongo MD ECG ORDERABLES Final Result Performing Organization Address City/[facility]/ZIP Co de Phone Number MUSE ECG * (ABNORMAL) Hepatic function panel (10/19/2024 5:12 PM EDT) Direct Bilirubin, Plasma <0.2 <=0.3 mg/dL 10/19/2024 7:32 PM EDT [facility] Alkaline Phosphatase, Plasma 68 35 - 104 U/L 10/19/2024 7:32 PM EDT [facility] Total Bilirubin, Plasma 0.3 0.2 - 1.1 mg/dL 10/19/2024 7:32 PM EDT [facility] Albumin, Plasma 2.5(L) 3.5 - 5.2 g/dL 10/19/2024 7:32 PM EDT [facility] Total Protein 5.2(L) 6.3 - 7.9 g/dL 10/19/2024 7:32 PM EDT [facility] ALT, Plasma 48(H) 10 - 35 U/L 10/19/2024 7:32 PM EDT [facility] AST, Plasma 35 10 - 35 U/L 10/19/2024 7:32 PM EDT [facility] Blood Venous blood specimen / Unknown Venipuncture / Unknown 10/19/2024 5:12 PM EDT 10/19/2024 5:30 PM EDT us Hilton Montelongo MD LAB BLOOD ORDERABLES Final Re sult [facility] [address] [place] [address] * US Abdomen Focused Region Liver, GB, [...] Urine 29.1 mg/dL 10/19/2024 3:24 PM EDT [facility] Phosphorus per day, Urine 0.8 0.4 - 1.3 g/d 10/19/2024 3:24 PM EDT [facility] Hours Of Collection 24 HRS 10/19/2024 3:24 PM EDT [facility] Urine, Volume 2,750 mL 10/19/2024 3:24 PM EDT [facility] Urine Urine specimen obtained by clean catch procedure / Unknown Non-blood Collection / Unknown 10/19/2024 2:43 PM EDT 10/19/2024 2:53 PM EDT us Santos Herrmann MD LAB URINE ORDERABLES Final Resu lt [facility] [address] [place] [address] * Albumin-creatinine ratio, 24 hr urine (10/19/2024 2:43 PM EDT) Microalbumin, Urine <1.2 <1.9 mg/dL 10/19/2024 3:39 PM EDT [facility] Albumin per day 3:39 PM EDT [facility] Comment:Unable to calculate, at least one value is above or below the detection limit. Microalbumin Excretion Rate 10/19/2024 3:39 PM EDT [facility] Comment:Unable to calculate, at least one value is above or below the detection limit. Creatinine, Urine 30 mg/dL 025 3:39 PM EDT [facility] Creatinine, 24H Ur 825 500 - 1,600 mg/d 10/19/2024 3:39 PM EDT [facility] Comment:Unable to calculate, at least one value is above or below the detection limit. Albumin/Creatinin e Ratio 10/19/2024 3:39 PM EDT [facility] Comment:Unable to calculate, at least one value is above or below the detection limit. Hours Of Collection 24 HRS 10/19/2024 3:39 PM EDT [facility] Urine, Volume 2,750 mL 10/19/2024 3:39 PM EDT [facility] Urine Urine specimen obtained by clean catch procedure / Unknown Non-blood Collection / Unknown 10/19/2024 2:43 PM EDT 10/19/2024 2:52 PM EDT us Santos Herrmann MD LAB URINE ORDERABLES Final Resu lt [facility] [address] [place] [address] * Calcium, 24 Hour Urine (10/19/2024 2:43 PM EDT) Calcium, Urine 3.1 mg/dL 10/19/2024 3:24 PM EDT [facility] Calcium per day, Urine 85 mg/day 10/19/2024 3:24 PM EDT [facility] Hours Of Collection 24 HRS 10/19/2024 3:24 PM EDT [facility] Urine, Volume 2,750 mL 10/19/2024 3:24 PM EDT [facility] Urine Urine specimen obtained by clean catch procedure / Unknown Non-blood Collection / Unknown 10/19/2024 2:43 PM EDT 10/19/2024 2:53 PM EDT Narrative [facility] - 10/19/2024 3:24 PM EDT Free Ca diet 5 - 40 mg/d Low to average Ca diet 50 - 150 mg/d Average Ca diet 100 - 300 mg/d Santos Herrmann MD LAB URINE ORDERABLES Final Resu lt Performing Organization Address [facility] de Phone Number [facility] [address] [place] [address] * Creatinine, 24 Hour Urine (10/19/2024 2:43 PM EDT) Creatinine, Urine 30 mg/dL 10/19/2024 3:39 PM EDT [facility] Creatinine per day, Urine 825 500 - 1,600 mg/d 10/19/2024 3:39 PM EDT [facility] Hours Of Collection 24 HRS 10/19/2024 3:39 PM EDT [facility] Urine, Volume 2,750 mL 10/19/2024 3:39 PM EDT [facility] Urine Urine specimen obtained by clean catch procedure / Unknown Non-blood Collection / Unknown 10/19/2024 2:43 PM EDT 10/19/2024 2:52 PM EDT Santos Herrmann MD LAB URINE ORDERABLES Final Resu lt Performing Organization Address [facility] Co de Phone Number [facility] [address] [place] [address] * Sodium, 24 Hour, Urine (10/19/2024 2:43 PM EDT) Sodium, Urine 45 mmol/L 10/19/2024 3:39 PM EDT [facility] Sodium per day 124 48 - 168 mmol/d 10/19/2024 3:39 PM EDT [facility] Hours Of Collection 24 HRS 10/19/2024 3:39 PM EDT [facility] Urine, Volume 2,750 mL 10/19/2024 3:39 PM EDT [facility] Urine Urine specimen obtained by clean catch procedure / Unknown Non-blood Collection / Unknown 10/19/2024 2:43 PM EDT 10/19/2024 2:52 PM EDT us Santos Herrmann MD LAB URINE ORDERABLES Final Resu lt Performing Organization Address [facility] Co de Phone Number [facility] [address] [place] [address] * Total Protein, 24 Hour Urine (10/19/2024 2:43 PM EDT) Protein, Urine <6 mg/dL 10/19/2024 3:39 PM EDT [facility] Total Protein per day 10/19/2024 3:39 PM EDT [facility] Comment:Unable to calculate, at least one value is above or below the detection limit. Hours Of Collection 24 HRS 10/19/2024 3:39 PM EDT [facility] Urine, Volume 2,750 mL 10/19/2024 3:39 PM EDT [facility] Urine Urine specimen obtained by clean catch procedure / Unknown Non-blood Collection / Unknown 10/19/2024 2:43 PM EDT 10/19/2024 2:52 PM EDT Narrative [facility] - 10/19/2024 3:39 PM EDT Reference Range <80 mg/day if bed rest <150 mg/day if ambulatory Santos Herrmann MD LAB URINE ORDERABLES Final Resu lt Performing Organization Address City/[facility]/ZIP Co de Phone Number [facility] [address] [place] [address] * Potassium, Urine, 24 Hour (10/19/2024 2:43 PM EDT) Potassium, Urine 20 mmol/L 10/19/2024 3:39 PM EDT [facility] Hours Of Collection 24 HRS 10/19/2024 3:39 PM EDT [facility] Urine, Volume 2,750 mL 10/19/2024 3:39 PM EDT [facility] Potassium per day, Urine 55 18 - 58 mmol/d 10/19/2024 3:39 PM EDT [facility] Urine Urine specimen obtained by clean catch procedure / Unknown Non-blood Collection / Unknown 10/19/2024 2:43 PM EDT 10/19/2024 2:52 PM EDT us Santos Herrmann MD LAB URINE ORDERABLES Final Resu lt Performing Organization Address City/[facility]/ZIP Co de Phone Number [facility] [address] [place] [address] * (ABNORMAL) Magnesium, urine, 24 hour (10/19/2024 2:43 PM EDT) Magnesium, Random Urine 24.3 mg/dL 10/19/2024 3:24 PM EDT [facility] Magnesium per day 668.3(H) 70.0 - 120.0 mg/d 10/19/2024 3:24 PM EDT [facility] Hours Of Collection 24 HRS 10/19/2024 3:24 PM EDT [facility] Urine, Volume 2,750 mL 10/19/2024 3:24 PM EDT [facility] Urine Urine specimen obtained by clean catch procedure / Unknown Non-blood Collection / Unknown 10/19/2024 2:43 PM EDT 10/19/2024 2:53 PM EDT us Santos Herrmann MD LAB URINE ORDERABLES Final Resu lt Performing Organization Address City/[facility]/ZIP Co de Phone Number [facility] [address] [place] [address] * Chloride, 24 Hour Urine (10/19/2024 2:43 PM EDT) Chloride, Urine <20 mmol/L 3:39 PM EDT [facility] Hours Of Collection 24 HRS 10/19/2024 3:39 PM EDT [facility] Urine, Volume 2,750 mL 10/19/2024 3:39 PM EDT [facility] Chloride per day, Urine 10/19/2024 3:39 PM EDT [facility] Comment:Unable to calculate, at least one value is above or below the detection limit. Urine Urine specimen obtained by clean catch procedure / Unknown Non-blood Collection / Unknown 10/19/2024 2:43 PM EDT 10/19/2024 2:52 PM EDT Santos Herrmann MD LAB URINE ORDERABLES Final Resu lt Performing Organization Address City/State/[facility] Co de Phone Number [facility] [address] [place] [address] * (ABNORMAL) Aldosterone, urine, 24 hour (10/19/2024 2:42 PM EDT) Creatinine, Urine - per 24h 908 700 - 1600 mg/d 10/27/2024 10:59 PM EDT [facility] ([facility]) Creatinine, Urine - per volume 33 mg/dL 10/27/2024 10:59 PM EDT [facility] ([facility]) Total Volume 2750 mL 10/27/2024 10:59 PM EDT [facility] ([facility]) Hours Collected 24 hr 10/27/2024 10:59 PM EDT [facility] ([facility]) ALDOSTERONE,UR INE RESULT 310.6(H) 1.2 - 28.1 ug/d 10/27/2024 10:59 PM EDT [facility] ([facility]) Urine Urine specimen obtained by clean catch procedure / Unknown Non-blood Collection / Unknown 10/19/2024 2:42 PM EDT 10/19/2024 4:27 PM EDT Narrative [facility] ([facility]) - 10/27/2024 10:59 PM EDT Per 24h calculations are provided to aid interpretation for collections with a duration of 24 hours and an average daily urine volume. For specimens with notable deviations in collection time or volume, ratios of analytes to a corresponding urine creatinine concentration may assist in result interpretation. Performed By: [facility] [address] [place] [id number] Public Relations Account Supervisor: Brandon Bell MD, PhD CLIA Number: [id number] Santos Herrmann MD LAB URINE ORDERABLES Final Resu lt [facility] ([facility]) [address] [place] [address] * (ABNORMAL) Aldosterone (10/18/2024 10:56 PM EDT) Aldosterone 115.0(H) 4.0 - 31.0 ng/dL 10/21/2024 8:21 AM EDT [facility] Blood Venous blood specimen / Unknown Venipuncture / Unknown 10/18/2024 10:56 PM EDT 10/18/2024 11:29 PM EDT Santos Herrmann MD LAB BLOOD ORDERABLES Final Resu lt Performing Organization Address [facility]/ZIP Co de Phone Number [facility] [address] [place] [address] * (ABNORMAL) Plasma Renin Activity (LC/MS/MS) (10/18/2024 10:56 PM EDT) PRA RESULT 30.67(H) 0.25 - 5.82 ng/mL/h 10/24/2024 7:47 PM EDT [facility] ([facility]) Comment: This test was developed and its analytical performance characteristics have been determined by [employer] [facility]. It has not been cleared or approved by the FDA. This assay has been validated pursuant to the CLIA regulations and is used for clinical purposes. Blood Venous blood specimen / Unknown Venipuncture / Unknown 10/18/2024 10:56 PM EDT 10/18/2024 11:08 PM EDT Narrative [facility] ([facility]) ([facility]) - 10/24/2024 7:47 PM EDT Performing Organization Information: Site ID: [id number] Name: [id number] Address: [address] [place] [id number] Director: Malik Islas MD, PhD us Santos Herrmann MD LAB BLOOD ORDERABLES Final Resu lt Performing Organization Address City/[facility]/ZIP Co de Phone Number [facility] ([facility]) [facility] [address] [place] [address] * Group B Streptococcus by PCR (10/18/2024 1:47 PM EDT) Group B Streptococcus PCR Result Not Detected Not Detected 10/20/2024 7:26 AM EDT [facility] Swab Rectovaginal / Unknown Non-blood Collection / Unknown 10/18/2024 1:47 PM EDT 10/18/2024 1:59 PM EDT Narrative [facility] - 10/20/2024 7:26 AM EDT This test is FDA approved for use with vaginal/rectal swab using the eSwabs. This test is used for clinical purposes. It should not be regarded as investigational or for research. This laboratory is certified under the Clinical Laboratory improvement Amendments of 1988 (CLIA-88 as qualified to perform high complexity clinical laboratory testing. us Laury Cruz MD LAB MICROBIOLOGY - GENERAL OR DERABLES Final Result [facility] [address] [place] [address] * ECHO, ADULT TRANSTHORACIC COMPLETE (10/18/2024 11:40 AM EDT) BSA 1.71 m2 [facility] Height 162.6 [facility] Weight 65.8 [facility] LVIDd 34 mm [facility] LVIDs 25 mm [facility] IVSd 8 mm [facility] LVPWd 5 mm [facility] LV MASS(C)D 54 g [facility] CV ECHO LV MASS INDEX 31 g/m2 [...] is no recent study available for direct [id number] comparison. Patient is 33 wks 5 days [...] is no recent study available for direct [id number] comparison. us Hilton Montelongo MD CV ECHO PROCEDURES Final Resu lt * POCT glucose meter (10/18/2024 9:42 AM EDT) POCT Glucose 78 74 - 99 mg/dL 10/18/2024 9:52 AM EDT [facility] Comment:Accuracy of a glucos e result [...] for testing. Comment 10/18/2024 9:52 AM EDT [facility] [employer] ID Tex Harman 025 9:52 AM EDT [facility] Device ID [id number] 10/18/2024 9:52 AM EDT [facility] Specimen Type POC Capillary 10/18/2024 9:52 AM EDT [facility] Blood Capillary blood specimen / Unknown 10/18/2024 9:42 AM EDT 10/18/2024 9:52 AM EDT us Hilton Montelongo MD LAB POINT OF CARE TE ST DOCKED DEVICE UNSOLICITED RESULTS Final Result Performing Organization Address City/[facility] Co de Phone Number [facility] [address] [place] [address] * Light Green Top (10/18/2024 9:14 AM EDT) Extra Hold for add-ons 10/18/2024 12:01 PM EDT [facility] Comment:Auto resulted. Blood Venous blood specimen / Unknown 10/18/2024 9:14 AM EDT 10/18/2024 9:27 AM EDT Result [facility] us Hilton Montelongo MD LAB BLOOD ORDERABLES Final Re sult Performing Organization Address [facility] de Phone Number [facility] [address] [place] [address] * OB US Biophysical Profile wo Non Stress Testing (10/18/2024 8:50 AM EDT) Anatomical Region Laterality Modality Body Ultrasound 10/18/2024 8:28 AM EDT Impressions 10/18/2024 9:40 AM EDT The OB Ultrasound you requested has been resulted. Please navigate to the Imaging tab in [employer] for review. This message has been generated by the interface. Narrative Procedure Note Dilip Gipson MD - 10/18/2024 IMPRESSION: The OB Ultrasound you requested has been resulted. Please navigate to theImaging tab in [employer] for review. This message has been generated by theinterface. us Hilton Montelongo MD IMG OB US PROCEDURES Final Re sult * Protein, Random, Urine with Creatinine (10/18/2024 4:03 AM EDT) Only the most recent of2 resultswithin the time period is included. Protein, Urine 10 mg/dL 10/18/2024 4:44 AM EDT [facility] Creatinine, Urine 62 mg/dL 10/18/2024 4:44 AM EDT [facility] Protein/Creatin ine Ratio 0.2 mg/mg Creat 10/18/2024 4:44 AM EDT [facility] Urine Urine specimen obtained by clean catch procedure / Unknown Non-blood Collection / Unknown 10/18/2024 4:03 AM EDT 10/18/2024 4:11 AM EDT us Hilton Montelongo MD LAB URINE ORDERABLES Final Re sult Performing Organization Address [facility] Co de Phone Number [facility] [address] [place] [address] * (ABNORMAL) Ionized calcium, whole blood (10/18/2024 3:38 AM EDT) Ionized Calcium, Whole Blood 4.3(L) 4.6 - 5.1 mg/dL LAB HEMATOLOGY METHOD 10/18/2024 5:42 AM EDT [facility] Blood Venous blood specimen / Unknown Venipuncture / Unknown 10/18/2024 3:38 AM EDT 10/18/2024 3:48 AM EDT us Hilton Montelongo MD LAB BLOOD ORDERABLES Final Re sult Performing Organization Address City/[facility]/ZIP Co de Phone Number [facility] [address] [place] [address] * (ABNORMAL) Blood gas panel, venous (10/18/2024 3:38 AM EDT) Only the most recent of2 resultswithin the time period is included. pH, Venous 7.47(H) 7.32 - 7.43 LAB HEMATOLOGY METHOD 10/18/2024 3:50 AM EDT [facility] pCO2, Venous 44 37 - 52 mmHg LAB HEMATOLOGY METHOD 10/18/2024 3:50 AM EDT [facility] pO2, Venous 115(H) 25 - 40 mmHg LAB HEMATOLOGY METHOD 10/18/2024 3:50 AM EDT [facility] SO2, Measured, Venous 100(H) 65 - 80 % LAB HEMATOLOGY METHOD 10/18/2024 3:50 AM EDT [facility] Base Excess, Venous 7.1(H) -2.0 - 3.0 mmol/L LAB HEMATOLOGY METHOD 10/18/2024 3:50 AM EDT [facility] Bicarbonate, Calculated, Venous 32(H) 22 - 26 mmol/L LAB HEMATOLOGY METHOD 10/18/2024 3:50 AM EDT [facility] Hematocrit, Whole Blood 27.5(L) 34.0 - 45.0 % LAB HEMATOLOGY METHOD 10/18/2024 3:50 AM EDT [facility] Sodium, Whole Blood 133(L) 136 - 145 mmol/L LAB HEMATOLOGY METHOD 10/18/2024 3:50 AM EDT [facility] Potassium, Whole Blood 2.8(L) 3.6 - 4.9 mmol/L LAB HEMATOLOGY METHOD 10/18/2024 3:50 AM EDT [facility] Chloride, Whole Blood 91(L) 97 - 107 mmol/L LAB HEMATOLOGY METHOD 10/18/2024 3:50 AM EDT [facility] Glucose, Whole Blood 72(L) 74 - 99 mg/dL LAB HEMATOLOGY METHOD 10/18/2024 3:50 AM EDT [facility] Lactate, Venous, Whole Blood 0.7 0.5 - 2.2 mmol/L LAB HEMATOLOGY METHOD 10/18/2024 3:50 AM EDT [facility] Ionized Calcium, Whole Blood 4.3(L) 4.6 - 5.1 mg/dL LAB HEMATOLOGY METHOD 10/18/2024 3:50 AM EDT [facility] Blood Venous blood specimen / Unknown Venipuncture / Unknown 10/18/2024 3:38 AM EDT 10/18/2024 3:48 AM EDT us Hilton Montelongo MD LAB BLOOD ORDERABLES Final Re sult [facility] [address] [place] [address] * Troponin T, High Sensitivity, 2 Hour, Plasma (10/18/2024 1:12 AM EDT) Only the most recent of2 resultswithin the time period is included. Troponin T, High Sensitivity, 2 Hour <6 <14 ng/L 10/18/2024 1:46 AM EDT [facility] Blood Venous blood specimen / Unknown Venipuncture / Unknown 10/18/2024 1:12 AM EDT 10/18/2024 1:18 AM EDT Hilton Montelongo MD LAB BLOOD ORDERABLES Final Re sult Performing Organization Address [facility] Co de Phone Number [facility] [address] [place] [address] * Bile acids, total (10/18/2024 1:12 AM EDT) [facility] BILE ACIDS, TOTAL 5 0 - 10 umol/L 10/20/2024 12:29 AM EDT [facility] ([facility]) Blood Venous blood specimen / Unknown Venipuncture / Unknown 10/18/2024 1:12 AM EDT 10/18/2024 1:18 AM EDT Narrative [employer]) - 10/20/2024 12:29 AM EDT INTERPRETIVE INFORMATION: Bile Acids, Total Reference Interval applies to fasting specimens. Performed By: [facility] [address] [place] [address] Public Relations Account Supervisor: Brandon Bell MD, PhD CLIA Number: [id number] Hilton Montelongo MD LAB BLOOD ORDERABLES Final Re sult Performing Organization Address [facility] Co de Phone Number [employer]) [address] [place] [address] * Group A Streptococcus by PCR (10/17/2024 11:25 PM EDT) [facility] Group A Streptococcus PCR Result Not Detected Not Detected 10/18/2024 12:38 AM EDT [facility] Swab Structure of peritonsillar tissue / Unknown Non-blood Collection / Unknown 10/17/2024 11:25 PM EDT 10/17/2024 11:49 PM EDT Hilton Montelongo MD LAB MICROBIOLOGY - GENERAL OR DERABLES Final Result Performing Organization Address City/[facility]/ZIP Co de Phone Number [facility] [address] [place] [address] * Troponin T, High Sensitivity, 0 Hour Plasma, Reflex to 2 Hour (10/17/2024 10:41 PM EDT) Only the most recent of2 resultswithin the time period is included. Troponin T, High Sensitivity, 0 Hour <6 <14 ng/L 10/17/2024 11:16 PM EDT [facility] Blood Venous blood specimen / Unknown Venipuncture / Unknown 10/17/2024 10:41 PM EDT 10/17/2024 10:45 PM EDT Hilton Montelongo MD LAB BLOOD ORDERABLES Final Re sult Performing Organization Address City/[facility]/ZIP Co de Phone Number [facility] [address] [place] [address] * (ABNORMAL) CBC (10/17/2024 10:41 PM EDT) WBC Count 10.63(H) 3.70 - 10.30 10*3/uL LAB HEMATOLOGY METHOD 10/17/2024 10:53 PM EDT [facility] RBC Count 3.27(L) 3.90 - 5.20 10*6/uL LAB HEMATOLOGY METHOD 10/17/2024 10:53 PM EDT [facility] HGB 9.7(L) 11.2 - 15.7 g/dL LAB HEMATOLOGY METHOD 10/17/2024 10:53 PM EDT [facility] HCT 28.7(L) 34.0 - 45.0 % LAB HEMATOLOGY METHOD 10/17/2024 10:53 PM EDT [facility] Platelet Count 185 155 - 369 10*3/uL LAB HEMATOLOGY METHOD 10/17/2024 10:53 PM EDT [facility] MCV 88 79 - 98 fL LAB HEMATOLOGY METHOD 10/17/2024 10:53 PM EDT [facility] MCH 29.7 26.0 - 32.0 pg LAB HEMATOLOGY METHOD 10/17/2024 10:53 PM EDT [facility] MCHC 33.8 30.7 - 35.5 g/dL LAB HEMATOLOGY METHOD 10/17/2024 10:53 PM EDT [facility] RDW 15.8(H) 11.5 - 14.5 % LAB HEMATOLOGY METHOD 10/17/2024 10:53 PM EDT [facility] MPV 12.3 8.8 - 12.5 fL LAB HEMATOLOGY METHOD 10/17/2024 10:53 PM EDT [facility] nRBC 0.0 <=0.0 per 100 WBCs LAB HEMATOLOGY METHOD 10/17/2024 10:53 PM EDT [facility] Blood Venous blood specimen / Unknown Venipuncture / Unknown 10/17/2024 10:41 PM EDT 10/17/2024 10:45 PM EDT us Hilton Montelongo MD LAB BLOOD ORDERABLES Final Re sult [facility] [address] [place] [address] * (ABNORMAL) Comprehensive metabolic panel (10/17/2024 10:41 PM EDT) Only the most recent of2 resultswithin the time period is included. Glucose, Plasma 77 74 - 99 mg/dL 10/17/2024 11:16 PM EDT [facility] BUN, Plasma 9 7 - 21 mg/dL 10/17/2024 11:16 PM EDT [facility] Creatinine, Plasma 0.70 0.60 - 1.10 mg/dL 10/17/2024 11:16 PM EDT [facility] BUN/Creatinine Ratio 13 10/17/2024 11:16 PM EDT [facility] Sodium, Plasma 132(L) 136 - 145 mmol/L 10/17/2024 11:16 PM EDT [facility] Potassium, Plasma 2.5(LL) 3.6 - 4.9 mmol/L 10/17/2024 11:16 PM EDT [facility] Chloride, Plasma 88(L) 97 - 107 mmol/L 10/17/2024 11:16 PM EDT [facility] CO2, Plasma 27 22 - 29 mmol/L 10/17/2024 11:16 PM EDT [facility] Anion Gap 17(H) 6 - 16 mmol/L 10/17/2024 11:16 PM EDT [facility] Total Calcium, Plasma 8.4(L) 8.9 - 10.2 mg/dL 10/17/2024 11:16 PM EDT [facility] Total Protein 5.8(L) 6.3 - 7.9 g/dL 10/17/2024 11:16 PM EDT [facility] Albumin, Plasma 3.0(L) 3.5 - 5.2 g/dL 10/17/2024 11:16 PM EDT [facility] AST, Plasma 69(H) 10 - 35 U/L 10/17/2024 11:16 PM EDT [facility] ALT, Plasma 76(H) 10 - 35 U/L 10/17/2024 11:16 PM EDT [facility] Alkaline Phosphatase, Plasma 76 35 - 104 U/L 10/17/2024 11:16 PM EDT [facility] Total Bilirubin, Plasma 0.7 0.2 - 1.1 mg/dL 10/17/2024 11:16 PM EDT [facility] eGFRcr 117.3 mL/min/1.7 3m*2 10/17/2024 11:16 PM EDT [facility] Comment:Reported eGFRcr in m L/min/1.73m2 is based the CKD-EPI 2020 equation that does not use a race coefficient. Blood Venous blood specimen / Unknown Venipuncture / Unknown 10/17/2024 10:41 PM EDT 10/17/2024 10:45 PM EDT us Hilton Montelongo MD LAB BLOOD ORDERABLES Final Re sult [facility] [address] [place] [address] * SARS CoV-2/COVID-19 by PCR (10/17/2024 8:50 PM EDT) [facility] SARS CoV-2/COVID-1 9 RNA PCR Result Not Detected Not Detected 10/19/2024 1:56 AM EDT [facility] Swab Nasopharyngeal structure / Unknown Non-blood Collection / Unknown 10/17/2024 8:50 PM EDT 10/17/2024 9:28 PM EDT Narrative [facility] - 10/19/2024 1:56 AM [...] MICROBIOLOGY - GENERAL OR DERABLES Final Result [facility] [address] [place] [address] * Nasopharyngeal Respiratory Panel (10/17/2024 8:50 PM EDT) [facility] Nasopharyngeal Respiratory PCR Interpretation Not Detected for all analytes Not Detected for all analytes 10/17/2024 11:23 PM EDT [facility] Swab Nasopharyngeal structure / Unknown Non-blood Collection / Unknown 10/17/2024 8:50 PM EDT 10/17/2024 9:28 PM EDT Narrative [facility] - 10/17/2024 11:23 PM [...] Respiratory PCR Panel is performed using the [employer] instrument. This test is FDA approved for use with Nasopharyngeal swabs only. This test is used for clinical purposes. It should not be regarded as investigational or for research. [facility] Clinical Microbiology Laboratory is certified under the Clinical Laboratory Improvement Amendments of 1988 (CLIA-88) as qualified to perform high complexity clinical laboratory testing. Hilton Montelongo MD LAB MICROBIOLOGY - GENERAL OR DERABLES Final Result Performing Organization Address [facility]/ZIP Co de Phone Number [facility] [address] [place] [address] * Treponema Pallidum (Syphilis) Antibodies with Reflex to RPR and RPR Titer (Those with NO known Syphilis) (10/17/2024 7:31 PM EDT) Pathologist [facility] Syphilis Antibody (IgG+IgM) Nonreactive Nonreactive 10/17/2024 10:00 PM EDT [facility] Comment:Nonreactive. No sero logic evidence of syphilis. No follow-up necessary unless clinically indicated (e.g., early syphilis). Blood Venous blood specimen / Unknown Venipuncture / Unknown 10/17/2024 7:31 PM EDT 10/17/2024 7:44 PM EDT Hilton Montelongo MD LAB BLOOD ORDERABLES Final Re sult Performing Organization Address [facility]/ZIP Co de Phone Number [facility] [address] [place] [address] * Type and Screen (10/17/2024 7:31 PM [...] ORDERABLE S Final Result [facility] [address] [place] [address], * XR Chest 1 View (10/17/2024 4:38 [...] DIMER, QUANTITATIVE (10/17/2024 4:05 PM EDT) Pathologist [facility] D Dimer, Quantitative 2.33(H) <0.50 ug/mL FEU LAB COAGULATION METHOD 10/17/2024 4:47 PM EDT [facility] Blood Venous blood specimen / Unknown Venipuncture / Unknown 10/17/2024 4:05 PM EDT 10/17/2024 4:19 PM EDT Narrative [facility] - 10/17/2024 4:47 PM [...] APRN, CNM LAB BLOOD ORDERABLES Final Result [facility] [address] [place] [address] * (ABNORMAL) CBC and Differential (10/17/2024 4:05 PM EDT) Pathologist [facility] WBC Count 9.54 3.70 - 10.30 10*3/uL LAB HEMATOLOGY METHOD 10/17/2024 4:41 PM EDT [facility] RBC Count 3.40(L) 3.90 - 5.20 10*6/uL LAB HEMATOLOGY METHOD 10/17/2024 4:41 PM EDT [facility] HGB 10.2(L) 11.2 - 15.7 g/dL LAB HEMATOLOGY METHOD 10/17/2024 4:41 PM EDT [facility] HCT 29.7(L) 34.0 - 45.0 % LAB HEMATOLOGY METHOD 10/17/2024 4:41 PM EDT [facility] Platelet Count 177 155 - 369 10*3/uL LAB HEMATOLOGY METHOD 10/17/2024 4:41 PM EDT [facility] MCV 87 79 - 98 fL LAB HEMATOLOGY METHOD 10/17/2024 4:41 PM EDT [facility] MCH 30.0 26.0 - 32.0 pg LAB HEMATOLOGY METHOD 10/17/2024 4:41 PM EDT [facility] MCHC 34.3 30.7 - 35.5 g/dL LAB HEMATOLOGY METHOD 10/17/2024 4:41 PM EDT [facility] RDW 15.9(H) 11.5 - 14.5 % LAB HEMATOLOGY METHOD 10/17/2024 4:41 PM EDT [facility] MPV 12.1 8.8 - 12.5 fL LAB HEMATOLOGY METHOD 10/17/2024 4:41 PM EDT [facility] nRBC 0.0 <=0.0 per 100 WBCs LAB HEMATOLOGY METHOD 10/17/2024 4:41 PM EDT [facility] Differential Type Automated LAB HEMATOLOGY METHOD 10/17/2024 4:41 PM EDT [facility] Neutrophils % 63 % LAB HEMATOLOGY METHOD 10/17/2024 4:41 PM EDT [facility] Lymphocytes % 24 % LAB HEMATOLOGY METHOD 10/17/2024 4:41 PM EDT [facility] Monocytes % 11 % LAB HEMATOLOGY METHOD 10/17/2024 4:41 PM EDT [facility] Eosinophils % 1 % LAB HEMATOLOGY METHOD 10/17/2024 4:41 PM EDT [facility] Basophils % 0 % LAB HEMATOLOGY METHOD 10/17/2024 4:41 PM EDT [facility] Immature Granulocytes % 1 % LAB HEMATOLOGY METHOD 10/17/2024 4:41 PM EDT [facility] Neutrophils Absolute 6.06 1.60 - 6.10 10*3/uL LAB HEMATOLOGY METHOD 10/17/2024 4:41 PM EDT [facility] Lymphocytes Absolute 2.31 1.20 - 3.90 10*3/uL LAB HEMATOLOGY METHOD 10/17/2024 4:41 PM EDT [facility] Monocytes Absolute 1.05(H) 0.30 - 0.90 10*3/uL LAB HEMATOLOGY METHOD 10/17/2024 4:41 PM EDT [facility] Eosinophils Absolute 0.06 0.00 - 0.50 10*3/uL LAB HEMATOLOGY METHOD 10/17/2024 4:41 PM EDT [facility] Basophils Absolute 0.01 0.00 - 0.10 10*3/uL LAB HEMATOLOGY METHOD 10/17/2024 4:41 PM EDT [facility] Immature Granulocytes Absolute 0.05 0.00 - 0.06 10*3/uL LAB HEMATOLOGY METHOD 10/17/2024 4:41 PM EDT [facility] Blood Venous blood specimen / Unknown Venipuncture / Unknown 10/17/2024 4:05 PM EDT 10/17/2024 4:24 PM EDT Narrative [facility] - 10/17/2024 4:41 PM EDT Therapeutic decision making should be based on absolute values, rather than percentages. us Job Devine BEREAVEMENT PROGRAM COORDINATOR, CNM LAB BLOOD ORDERABLES Final Result [facility] [address] [place] [address] * (ABNORMAL) Uric acid (10/17/2024 4:05 PM EDT) Uric Acid, Plasma 10.1(H) 3.1 - 7.1 mg/dL 10/17/2024 9:51 PM EDT [facility] Blood Venous blood specimen / Unknown Venipuncture / Unknown 10/17/2024 4:05 PM EDT 10/17/2024 4:20 PM EDT us Hilton Montelongo MD LAB BLOOD ORDERABLES Final Re sult [facility] [address] [place] [address] * (ABNORMAL) Lactate dehydrogenase (10/17/2024 4:05 PM EDT) LDH, Plasma 267(H) 116 - 250 U/L 10/17/2024 9:51 PM EDT [facility] Comment:Hemolyzed, result ma y be falsely increased. Blood Venous blood specimen / Unknown Venipuncture / Unknown 10/17/2024 4:05 PM EDT 10/17/2024 4:20 PM EDT us Hilton Montelongo MD LAB BLOOD ORDERABLES Final Re sult Performing Organization Address [facility] de Phone Number [facility] [address] [place] [address] * OB US Detail Anatomy (10/17/2024 1:34 PM EDT) Anatomical Region Laterality Modality Body Ultrasound 10/17/2024 11:2 0 AM EDT Impressions 10/17/2024 2:52 PM EDT The OB Ultrasound you requested has been resulted. Please navigate to the Imaging tab in [employer] for review. This message has been generated by the interface. Narrative Procedure Note Melonie Wheeler MD - 10/17/2024 IMPRESSION: The OB Ultrasound you requested has been resulted. Please navigate to theImaging tab in [employer] for review. This message has been generated by [employer]. us Dilip Gipson MD IMG OB US PROCEDURES Lena l Result * Chloride, urine, random (09/26/2024 10:07 AM EDT) Chloride, Urine 25 mmol/L 2:03 PM EDT [facility] Urine Urine specimen obtained by clean catch procedure / Unknown Non-blood Collection / Unknown 09/26/2024 10:07 AM EDT 09/26/2024 10:07 AM EDT Bill Patrick MD LAB URINE ORDERABLES Final Resul t Performing Organization Address City/[facility]/ZIP Co de Phone Number [facility] [address] [place] [address] * Sodium, urine, random (09/26/2024 10:02 AM EDT) Sodium, Urine 110 mmol/L 09/26/2024 11:55 AM EDT [facility] Urine Urine specimen obtained by clean catch procedure / Unknown Non-blood Collection / Unknown 09/26/2024 10:02 AM EDT 09/26/2024 10:02 AM EDT us Bill Patrick MD LAB URINE ORDERABLES Final Resul t Performing Organization Address City/[facility] Co de Phone Number [facility] [address] [place] [address] * Potassium, urine, random (09/26/2024 10:02 AM EDT) Potassium, Urine 43 mmol/L 09/26/2024 11:55 AM EDT [facility] Urine Urine specimen obtained by clean catch procedure / Unknown Non-blood Collection / Unknown 09/26/2024 10:02 AM EDT 09/26/2024 10:02 AM EDT us Bill Patrick MD LAB URINE ORDERABLES Final Resul t Performing Organization Address City/[facility] de Phone Number [facility] [address] [place] [address] * Osmolality, urine (09/26/2024 10:02 AM EDT) Osmolality, Urine 404 50 - 1,200 mOsm/kg 09/26/2024 1:48 PM EDT [facility] Urine Urine specimen obtained by clean catch procedure / Unknown Non-blood Collection / Unknown 09/26/2024 10:02 AM EDT 09/26/2024 10:02 AM EDT us Bill Patrick MD LAB URINE ORDERABLES Final Resul t Performing Organization Address City/[facility] Co de Phone Number [facility] [address] [place] [address] * SSA 52 and 60 (Ro) (YARA) Antibodies, IgG (09/26/2024 9:32 AM EDT) SSA-52 (RO52) (YARA) Antibody, IgG 2 0 - 40 AU/mL 09/28/2024 5:47 PM EDT [facility] (TERRI) SSA-60 (RO60) (YARA) Antibody, IgG 0 0 - 40 AU/mL 09/28/2024 5:47 PM EDT [facility] (TERRI) Serum 09/26/2024 9:32 AM EDT 09/26/2024 9:32 AM EDT Narrative [facility] (TERRI) - 09/28/2024 5:47 PM [...] AU/mL or Greater .......... Positive Performed By: [employer] [address] [id number] Public Relations Account Supervisor: Brandon Bell MD, PhD CLIA Number: [id number] us Bill Patrick MD LAB REF LAB BLOOD AND FLUID ORD Final Result [facility] Event 38 [employer]RI) [address] [place] [address] * SSB (LA) (YARA) ANTIBODY, IGG (09/26/2024 9:32 AM EDT) SSB (LA) (YARA) Antibody, IgG 0 0 - 40 AU/mL 09/28/2024 5:47 PM EDT [facility] (TERRI) Serum Venous blood specimen / Unknown 09/26/2024 9:32 AM EDT 09/26/2024 9:32 AM EDT Narrative [facility] JULIEN SORENSEN) - 09/28/2024 5:47 PM [...] (PSS) also have this antibody. Performed By: [employer] [address] [place] [address] Public Relations Account Supervisor: Brandon Bell MD, PhD CLIA Number: [id number] Bill Patrick MD LAB BLOOD ORDERABLES Final Resul t [facility] Event 38 [employer]) [address] [place] [address] * Rheumatoid factor, plasma (09/26/2024 9:32 AM EDT) [facility] Rheumatoid Factor, Plasma <10 <14 IU/mL 09/26/2024 1:49 PM EDT [facility] Blood Venous blood specimen / Unknown Venipuncture / Unknown 09/26/2024 9:32 AM EDT 09/26/2024 9:32 AM EDT Bill Patrick MD LAB BLOOD ORDERABLES Final Resul t [facility] [address] [place] [address] * Antinuclear Antibody (JEFFERY), HEp-2, IgG (09/26/2024 9:32 AM EDT) JEFFERY INTERPRETIVE COMMENT See Note 09/28/2024 5:13 PM EDT [facility] (TERRI) Anti Nuc Ab Screen <1:80 <1:80 09/28/2024 5:13 PM EDT [facility] (TERRI) Blood Venous blood specimen / Unknown Venipuncture / Unknown 09/26/2024 9:32 AM EDT 09/26/2024 9:32 AM EDT Narrative [facility] (TERRI) - 09/28/2024 5:13 PM EDT [...] rings, and cytoplasmic speckled patterns. Performed By: [employer] [address] [place] [address] Public Relations Account Supervisor: Brandon Bell MD, PhD CLIA Number: [id number] Bill Patrick MD LAB BLOOD ORDERABLES Final Resul t [facility] (TERRI) [address] [place] [address] * (ABNORMAL) Osmolality (09/26/2024 9:32 AM EDT) Osmolality, Serum 273(L) 275 - 295 mOsm/Kg 09/26/2024 2:10 PM EDT [facility] Blood Venous blood specimen / Unknown Venipuncture / Unknown 09/26/2024 9:32 AM EDT 09/26/2024 9:32 AM EDT us Bill Patrick MD LAB BLOOD ORDERABLES Final Resul t [facility] [address] [place] [address] * (ABNORMAL) Renal function panel (09/26/2024 9:32 AM EDT) Pathologist [facility] Glucose, Plasma 87 74 - [...] BUN/Creatinine Ratio 7 09/26/2024 12:24 PM EDT [facility] Sodium, Plasma 135(L) 136 [...] - 16 mmol/L 09/26/2024 12:24 PM EDT [facility] Total Calcium, Plasma 9.4 [...] BLOOD ORDERABLES Final Resul t [facility] [address] [place] [address] * Adult Patch Monitor - 7 Day [...] bpm on Day 3 08:47:57 pm SVE(s): Rociada was 3.46 %, [id number] total SVE(s) SV Arrhythmia(s): 21 events, longest event 7 beats on Day :05:26 am, fastest event 111 bpm on Day :02:39 am PVC(s): [place] was 0.03 %, 189 total PVC(s), 1 [...] ORDERABLES Fin al Result Performing Organization Address City/[facility] de Phone Number SUNQUEST * Hepatitis C Antibody (01/22/2019 9:57 AM EST) Hepatitis C Antibody NEGATIVE Reference Range: Negative [facility] 01/22/2019 9:57 AM EST 01/22/2019 12:12 PM EST Pradip Damico APRN, CNM LAB BLOOD ORDERABLES Fin al Result Performing Organization Address City/[facility] Co de Phone Number [facility] from Last 3 Months or Most Recently Relevant to Health Maintenance Insurance [employer] [facility] MEDICAID Advance Directives * Full Code (Latest Code Status on File) Date Activated Date Inactivated Comments 10/17/2024 7:12 PM 10/20/2024 12:16 PM Question Answer Comments I have reviewed the capacity from the link above and, if needed, have updated to appropriate status: Yes Care Teams Numerical Control Router Operator Relationship Specialty Start Date End Date Norma Friedman APRN [address] [place] [address] PCP - General 09/23/24 Lizz Trinh, RN [facility] Registered Nurse Cardiology 09/26/24
--- OUTSIDE RECORDS SUMMARY | 2024-10-29 12:17 | XMS_ITS | Encounter Summary ---
Author Organization Healthcare Address [address] [place] [address] Care Team Providers Care Quarrying Manager Name Role Phone Valentino Friedmanseven Zbigniew JOLENE Primary Care Provider +1- [phone] Lizz Trinh RN Unavailable Unavailable Encounter Details Date Type Department Care Team (Late st Contact Info) Description 10/23/2024 Telephone [facility] Obstetrics & Gynecology [address] [place] [address] Veronica Deal MD [address] [phone] Social History Tobacco Use Types Packs/Day Years [...] more drinks on one occasion? Never 09/23/2024 [place] Depression Scale Answer Date Recorded [place] Depression Scale Total 0 09/23/2024 The thought [...] Upcoming Encounters Date Type Department Care Team ([facility] st Contact Info) Description 10/31/2024 Hospital Encounter [facility] [address] [place] [address] 11/21/2024 11:15 AM EDT Visit Medical Office Building Obstetrics and Gynecology [address] [facility], [address] [place] [address] Nneka Gipson MD [address] [place] [address] 12/25/2024 1:00 PM EST Office Visit Professional [facility] Nephrology, Bone & Mineral Metabolism [address] [facility], [address] [place] [address] documented as of this encounter Visit Diagnoses Not on filedocumented in this encounter Additional Health Concerns Assessment Noted Time A fall risk assessment has been complete d for the patient 09/26/2024 8:15 AM EDT A Body Mass Index follow-up plan has been documented for the patient 10/20/2024 9:52 AM EDT documented as of this encounter Care Teams Quarrying Manager Relationship Specialty Start Date End Date Norma Friedman APRN [address] [place] [address] PCP - General 09/23/24 Lizz Trinh, RN [facility] Registered Nurse Cardiology 09/26/24 documented as of this encounter
--- OUTSIDE RECORDS SUMMARY | 2024-10-29 12:17 | XMS_ITS | Encounter Summary ---
Author Organization Healthcare Address [address] [place] [address] Care Team Providers Care Architectural Model Maker Name Role Phone Norma Friedman JOLENE Primary Care Provider +1- [phone] Lizz Trinh RN Unavailable Unavailable Encounter Details Date Type Department Care Team ([facility] Contact Info) Description 10/21/2024 Telephone Ch electronic field service engineer (l&d) Virtual Dept. [address] [place] [id number] Ana Deal MD [address] [place] [address] Social History Tobacco Use Types Packs/Day Years [...] more drinks on one occasion? Never 09/23/2024 [place] Depression Scale Answer Date Recorded [place] Depression Scale Total 0 09/23/2024 The thought [...] Discussed with [facility] ID and MFM Fellow library sales consultant, Perry Gage, who agree that the patient [...] Upcoming Encounters Date Type Department Care Team ([facility] st Contact Info) Description 10/31/2024 Hospital Encounter [facility] [address] [place] [address] 11/21/2024 11:15 AM EDT Visit Medical Office Building Obstetrics and Gynecology [address] [facility], [address] [place] [address] Nneka Gipson MD [address] [place] [address] 12/25/2024 1:00 PM EST Office Visit [facility] Nephrology, Bone & Mineral Metabolism [address] [facility], [address] [place] [phone] documented as of this encounter Visit Diagnoses Diagnosis Esophagitis- Primary Unspecified esophagitis documented in this encounter Additional Health Concerns Assessment Noted Time A fall risk assessment has been complete d for the patient 09/26/2024 8:15 AM EDT A Body Mass Index follow-up plan has been documented for the patient 10/20/2024 9:52 AM EDT documented as of this encounter Care Teams Architectural Model Maker Relationship Specialty Start Date End Date Norma Friedman APRN [address] [place] [address] PCP - General 09/23/24 Lizz Trinh, RN [facility] Registered Nurse Cardiology 09/26/24 documented as of this encounter
--- OUTSIDE RECORDS SUMMARY | 2024-10-29 12:17 | XMS_ITS | Encounter Summary ---
Author Organization Healthcare Address [address] [place] [address] Care Team Providers Care Traveling Construction Superintendent Name Role Phone Norma Friedman JOLENE Primary Care Provider +1- [phone] Lizz Trinh RN Unavailable Unavailable Encounter Details Date Type Department Care Team ([facility] Contact Info) Description 10/24/2024 Orders Only Medical Office Building Obstetrics and Gynecology [address] [facility], [address] [place] [address] Kaitlyn Richter MD [address] [place] [address] Social History Tobacco Use Types Packs/Day Years [...] more drinks on one occasion? Never 09/23/2024 [place] Depression Scale Answer Date Recorded [place] Depression Scale Total 0 09/23/2024 The thought [...] Encounter [facility] [address] [place] [address] 11/21/2024 11:15 AM EDT Visit Medical Office Building Obstetrics and Gynecology [address] [facility], [address] [place] [address] Nneka Gipson MD [address] [place] [address] 12/25/2024 1:00 PM EST Office Visit [facility] Nephrology, Bone & Mineral Metabolism [address] [facility], [address] [place] [address] documented as of this encounter [...] documented as of this encounter Care Teams Traveling Construction Superintendent Relationship Specialty Start Date End Date Norma Friedman APRN [address] [place] [id number] PCP - General 09/23/24 Lizz Trinh, RN [facility] Registered Nurse Cardiology 09/26/24 documented as of this encounter
--- OUTSIDE RECORDS SUMMARY | 2024-10-29 12:17 | XMS_ITS | Encounter Summary ---
Author Organization Healthcare Address [address] [place] [address] Care Team Providers Care Poolroom/Poolhall Manager Name Role Phone Norma Friedman JOLENE Primary Care Provider +1- [phone] Lizz Trinh RN Unavailable Unavailable Reason for Visit * Reason Onset Date Comments Rescheduling IOL 10/28/2024 Encounter Details Date Type Department Care Team ([facility] Contact Info) Description 10/28/2024 Telephone Medical Office Building Obstetrics and Gynecology [address] [facility], [address] [place] [address] Tracy Segovia, RN [facility] OB ULTRASOUND CLINIC 1st FLR Rescheduling IOL Social History Tobacco Use Types Packs/Day Years [...] more drinks on one occasion? Never 09/23/2024 [place] Depression Scale Answer Date Recorded [place] Depression Scale Total 0 09/23/2024 The thought [...] Telephone Encounter - Tracy Segovia RN - 10/28/2024 10:59 AM EDT I received a call from Whitney requesting to move her IOL from 10/31 at 11/06, Whitney reports her potassium level is the best they have been and she would really like to get to 36+ weeks. IOL moved to 11/06 as requested. Secure chat sent to Dr. Cruz and Dr. Richter with update. Patientunderstands that she can present to OB ED at anytime if there are changes in her health/electrolytelevels if needed. documented in this encounter Plan of Treatment Upcoming Encounters Date Type Department Care Team (Late st Contact Info) Description 10/31/2024 Hospital Encounter [facility] Delivery [address] [place] [address] 11/21/2024 11:15 AM EDT Visit Medical Office Building Obstetrics and Gynecology [address] [facility], [address] [place] [address] Nneka Gipson MD [address] [place] [address] 12/25/2024 1:00 PM EST Office Visit Professional [facility] Nephrology, Bone & Mineral Metabolism [address] [facility], [address] [place] [address] documented as of this [...] documented as of this encounter Care Teams Poolroom/Poolhall Manager Relationship Specialty Start Date End Date Norma Friedman APRN [address] [place] [id number] PCP - General 09/23/24 Lizz Trinh, RN [facility] Registered Nurse Cardiology 09/26/24 documented as of this encounter
--- NOTE | 2024-10-29 13:00 | US_ITS ---
PROCEDURE: US OB BIOPHYSICAL PROFILE CLINICAL INDICATION: Cholestasis/IUGR COMPARISON: US US OB TRANSVAGINAL from 03/27/2024 US US OB TRANSVAGINAL from 09/19/2024 US US OB BIOPHYSICAL PROFILE from 09/19/2024 US US OB BIOPHYSICAL PROFILE from 10/22/2024 FINDINGS: Transabdominal sonographic images of the uterus were obtained. From her established due date she is 35weeks 2days. The following parameters are obtained: Viable Fetus in the cephalic presentation with and anterior placenta grade 2. Average ultrasound age is 32weeks 5days Estimated weight 1,956g Cervix measures 3.47 cm in length Measurements: heart Rate = 152bpm Average ultrasound age 32 weeks 5 days Estimated weight 1956 grams 4 lb 5 oz BPD = 32weeks 3days, <2 percentile HC = 33 weeks 4 days, <2 percentile AC = 32weeks 4days, 3 percentile FL = 31weeks 6days < 2 percentile HC/AC is 1.06 FL/BPD is 0.76 FL/AC is 0.21 <2 percentile Amniotic fluid index: 12.02cm, MVP 5.50 cm Qualitative AFV:2 Breathing movements: 2 Gross Body Movements: 2 Tone: 2 Biophysical profile score: 8 Doppler evaluation of the umbilical artery: SD ratio: 2.28-2.47 normal Resistive index: 0.6 No obvious anomalies evident.Kidneys, profile, stomach, bladder, four-chamber heart, three-vessel cord appear normal. IMPRESSION: 1. Viable fetus in the cephalic presentation with an anterior placenta grade 2. 2. The fluid is within normal limits with an amniotic fluid index 12.02 cm, MVP 5.50 cm. 3. Biophysical profile is 8/8 with good breathing movement and movement seen. 4. SD ratio is normal 2.28-2.47. 5. There has been a falling off of the growth with the fetus now less than the 2nd percentile. 6. Limited anatomical scan appears normal. Dictated by: Boby Ramon MD 10/29/2024 17:18 Boby Ramon MD in OV 10/29/2024 17:18
== END 2024-10-29 23:59 | disposition home or self-care (01) ==
LOC: RAD 12:12 → INF 12:29
PROVIDERS: PCP Nurse Practitioner Family; Visit Provider Nurse Practitioner Obstetrics & Gynecology
DX: Z36.2 Encounter for other antenatal screening follow-up (principal); O26.643 Intrahepatic cholestasis of pregnancy, third trimester; O09.299 Supervision of pregnancy with other poor reproductive or obstetric history, unspecified trimester; E83.42 Hypomagnesemia; Z3A.00 Weeks of gestation of pregnancy not specified
CPT/HCPCS: 76816; 76819; 76820; 96523

== ENCOUNTER 2024-10-30 08:10 | Outpatient (CLI) | payer OTHER, SELFPAY ==
[2024-10-30 08:40] LABS: Alanine Aminotransferase 15 U/L (12-78); Albumin Level 2.8 g/dl (3.5-5.0); Albumin/Globulin Ratio 1.0 (1.1-1.8); Alkaline Phosphatase 85 U/L (38-126); Anion Gap 6.7 mEq/L (5-15); Aspartate Amino Transferase 29 U/L (14-36); Bilirubin,Total 0.5 mg/dl (0.2-1.3); Blood Urea Nitrogen 4 mg/dl (7-17); Calcium 8.0 mg/dl (8.4-10.2); Carbon Dioxide 26 mmol/L (22.0-30.0); Chloride 103 mmol/L (98-107); Creatinine,Serum 0.60 mg/dl (0.52-1.04); Estimated Glomerular Filt Rate 115 ml/min (>60); GFR (African American) 139 ML/MIN (>60); Globulin 2.8 g/dL (1.3-3.2); Glucose 72 mg/dl (74-100); Magnesium 1.3 mg/dl (1.6-2.3); Sodium 133 mmol/L (136-145); Total Protein,Serum 5.6 g/dl (6.3-8.2)
[2024-10-30 08:53] LABS: Potassium 2.7 mmoL/L (3.5-5.1)
[2024-10-30 09:22] VITALS: BP 99/67; PULSE 78; RESP 18; O2SAT 99
[2024-10-30] MEDS: MAGNESIUM SULFATE IN WATER 2 GM/50 ML PIGGYBACK IV ×3 (09:22→11:25)
[2024-10-30] MEDS: 0.9 % SODIUM CHLORIDE 50 ML 100 ML IV (09:22)
[2024-10-30] MEDS: 0.9 % SODIUM CHLORIDE 50 ML IV (09:22)
[2024-10-30 10:23] VITALS: BP 110/69; PULSE 77; RESP 18; O2SAT 99
[2024-10-30 11:35] VITALS: BP 114/72; PULSE 85; RESP 18; O2SAT 99
[2024-10-30] MEDS: LACTATED RINGERS IV (11:35)
[2024-10-30] MEDS: POTASSIUM CHLORIDE IV (11:35)
[2024-10-30 12:35] VITALS: PULSE 92; RESP 18; O2SAT 99
[2024-10-30 13:35] VITALS: BP 113/61; PULSE 82; RESP 18; O2SAT 99
== END 2024-10-30 23:59 | disposition home or self-care (01) ==
PROVIDERS: PCP Nurse Practitioner Family; Visit Provider Nurse Practitioner Obstetrics & Gynecology
DX: E87.6 Hypokalemia (principal)
CPT/HCPCS: 80053; 83735; 96360; 96361; 96365; 96366; 96367; 96376; J3475; J3480; J7120

== ENCOUNTER 2024-10-31 09:25 | Outpatient (CLI) | payer OTHER, SELFPAY | END 2024-10-31 23:59 | LOC: LAB.DROPOF 11-04 08:02 | PROVIDERS: PCP Obstetrics & Gynecology; Visit Provider Obstetrics & Gynecology | DX: O26.643 Intrahepatic cholestasis of pregnancy, third trimester (principal); O34.43 Maternal care for other abnormalities of cervix, third trimester; O09.293 Supervision of pregnancy with other poor reproductive or obstetric history, third trimester; Z3A.00 Weeks of gestation of pregnancy not specified | CPT/HCPCS: 87086 ==

== ENCOUNTER 2024-11-04 08:10 | Outpatient (CLI) | payer OTHER, SELFPAY ==
--- OUTSIDE RECORDS SUMMARY | 2024-09-23 10:00 | XMS_ITS | Encounter Summary ---
Author Organization [facility] Address [address] [place] [address] Care Team Providers Care Pricer Bagger Name Role Phone Norma Friedman JOLENE Primary Care Provider +1- [phone] Reason for Referral * Consultation (Routine) - Closed Specialty Diagnoses / Procedures Referred By Contac t Referred To Contact Cardiology Diagnoses Supervision of high risk , antepartum Cardiac arrhythmia, unspecified cardiac arrhythmia type Liborio Weller MD [address] [facility] [address] [place] [address] Phone: tel: fax: Referral ID Status Reason Start Date Expiration Date V isits Requested Visits Authorized [id number] Closed Specialty Services Required 09/23/2024 03/25/2026 1 1 Encounter Details Date Type Department Care Team ([facility] st Contact Info) Description 09/23/2024 10:00 AM EDT Office Visit Medical Office Building Obstetrics and Gynecology [address] [facility], [address] [place] [address] Liborio Weller MD [address] [facility] [address] [place] [address] Supervision of high risk , antepartum (Primary Dx); Cardiac arrhythmia, unspecified cardiac arrhythmia type Social History Tobacco Use Types Packs/Day Years Used Date Smoking Tobacco: Never Passive Smoke Exposure: Never Smokeless Tobacco: Never Alcohol Use Standard Drinks/Week Comments Never 0 (1 standard drink = 0.6 oz pur e alcohol) AUDIT-C Answer Date Recorded Q1: How often do you have a drink containing alcohol? Never 09/23/2024 Q2: How many drinks containi ng alcohol do you have on a typical day when you are drinking? Patient does not drink Q3: How often do you have si x or more drinks on one occasion? Never 09/23/2024 [place] Depression Scale Answer Date Recorded [place] Depression Scale Total 0 09/23/2024 The thought of harming myself has occurred to me . Never 09/23/2024 Education Answer Date Recorded What is the highest level of school you have completed or the highest degree you have received? Associate degree: academic program 09/23/2024 Estimated Date of Delivery Comme nts Yes 12/01/2024 Date entered eliel or to episode creation Sex and Gender Information Value Date Recorded Sex Assigned at Not on file Legal Sex Female 8:43 PM EDT Gender Identity Not on file Sexual Orientation Not on file documented as of this encounter Last Filed Vital Signs Vital Sign Reading Time Taken Comments Blood Pressure 106/75 09/23/2024 10:18 AM EDT Pulse 88 09/23/2024 10:18 AM EDT Temperature 36.4 C (97.6 F) 09/23/2024 10:18 AM EDT Respiratory Rate 18 09/23/2024 10:18 AM EDT Oxygen Saturation 98% 09/23/2024 10:18 AM EDT Inhaled Oxygen Concentration - - Weight 71.1 kg (156 lb 12 oz) 09/23/2024 10:18 A M EDT Height 162.6 cm (5' 4 ) 09/23/2024 10:18 AM EDT Body Mass Index 26.91 09/23/2024 10:18 AM EDT documented in this encounter Functional Status * AUDIT-C Score Answer Date of Assessment Author 0 09/23/2024 10:39 AM EDT Hailey Crandall * Question Answer Date of Assessment Author Q1: How often do you have a drink containing alcohol? Never 09/23/2024 10:39 AM EDT Hailey Crandall Q2: How many drinks containing alcohol do you have on a typical day when you are drinking? Patient does not drink 09/23/2024 10:39 AM EDT Hailey Crandall Q3: How often do you have six or more drinks on one occasion? Never 09/23/2024 10:39 AM EDT Hailey Crandall documented as of this encounter Miscellaneous Notes * Progress Notes - Brandee Pringle MD - 09/23/2024 10:00 AM EDT MFM Consult Name: Whitney Calixto Date of : 1990 Referring Physician: Dr. Marin Reason for consult: hypokalemia, heart arrhythmia Subjective Whitney Calixto is seen today for a MFM consult. The patient is a 34 y.o. at 30w1d, with an DUSTY of 12/01/24. is complicated by nausea/vomiting, hx proteinuria in not related to BP, vaginal bleeding in current gestation w/ RENE, hx hypokalemia and hypomagnesemia in 3rdtrimester, hx CS x1 (G3 emergency CS), hx x2, hx LEEP (2017), hx cone, hx PPH. She presents today for an MFM consult to discuss recent admission for maternal arrhythmia as well as frequent need for potassium transfusions. Says in her past pregnancies around 33 weeks she will develop hypokalemia and require potassium transfusions 2 times a week. At this time, she will also develop dizziness as sociated with the hypokalemia. In the past, she has delivered at 37 weeks. Her last was 5years ago. In her current , she started requiring potassium transfusions around 27 weeks and is currently needing them every other day. She gets 160mEq of potassium with every infusion. She also is requiring magnesium infusions every other day and has a PICC line for her infusions. She says her biggest concern is a cardiac event that happened last week on 09/19. She presented to [facility] for chest pain and palpitations. She has been having daily syncopal episodes but this time was associated with other cardiac symptoms. She reports she had an EKG that showed sinus tachycardiaand an arrhythmia. She had been having HR in the 170s-180s with standing. Her potassium at the timewas 2.8 and she received an infusion during this admission. She had an ECHO that showed LVEF 55% and mild mitral and tricuspid regurgitation. She also had a renal US that showed moderate right hydroureteronephrosis. She has an appointment with nephrology on 09/25 and has otherwise never seen a flight attendant/inflight manager. She has never seen a bale tie machine operator. She also reports during this admission she was having contractions that were 30 seconds apart and was given procardia. Her cervix was evaluated by US and was 2.3 cm but was not evaluated for dilation. Has not had regular contractions since but does report infrequent painful myriam calixto. No LOF or VB. Normal FM. HPI OB History Para Term AB Living 9 5 4 1 3 5 SAB IAB Ectopic Multiple Live Births 3 5 # Outcome Date GA Lbr Morgan/2nd Weight Sex Type Anes PTL Lv 9 Current 8 SAB 12/21/23 10w0d Incomplete S 7 SAB 06/15/20 5w0d Complete 6 Term 08/21/19 37w5d 2807 g M Vag-Spont EPI JAGDISH Complications: Potassium (K) deficiency 5 SAB 07/20/18 10w0d Incomplete S 4 Term 04/21/16 38w0d 2637 g F Vag-Spont None JAGDISH Complications: Potassium (K) deficiency 3 06/19/14 36w2d 2381 g M CS-LTranv Gen JAGDISH Complications: Potassium (K) deficiency, labor in third trimester 2 Term 09/05/12 37w4d 2325 g M Vag-Spont EPI N JAGDISH Complications: Potassium (K) deficiency 1 Term 08/11/10 37w3d 2580 g F Vag-Spont None N JAGDISH Complications: Potassium (K) deficiency [place] Depression Scale Total: 0 Gynecology History No results found for: PAP Past Medical History She has a past medical history of Maternal care for unspecified type scar from previous delivery, Personal history of other diseases of the digestive system, Personal history of other diseases of the female genital tract, Personal history of other diseases of the female genital tract, Personal history of other infectious and parasitic diseases, Personal history of other medical treatment, Personal history of other medical treatment, Personal history of other mental and behavioral disorders, related conditions, unspecified, unspecified trimester, and Spotting complicating , unspecified trimester. Past Surgical History She has a past surgical history that includes [place] tooth extraction (N/A); section, low transverse (N/A); and Dilation and curettage of uterus (N/A). Social History She reports that she has never smoked. She has never been exposed to tobacco smoke. She has never used smokeless tobacco. She reports that she does not drink alcohol and does not use drugs. Family History Her family history includes Conversions - Other in her father and another family member; Diabetes in her father, mother, and paternal grandmother; Hyperlipidemia in her father, mother, and another family member; Hypertension in her father, mother, and another family member; Obesity in her father, mother, sister, and another family member; Thyroid disease in her father, mother, and sister. Current Medications She has a current medication list which includes the following prescription(s): ferosul, potassium chloride cr, prenat mv-min w/pd-rgmlel-yiw, and thiamine. Allergies Allergies[1] Review of Systems Review of Systems Objective Visit Vitals BP 106/75 Pulse 88 Temp 36.4 ??C (97.6 ??F) (Tympanic) Resp 18 Wt Readings from Last 1 Encounters: 09/23/24 71.1 kg (156 lb 12 oz) Current BMI:: Body mass index is 26.91 kg/m??. Physical Exam OBGyn Exam Constitutional: No acute distress, well appearing and well nourished. Neck: Neck symmetric, trachea midline, no visible masses/deformities. Cardiovascular: No peripheral edema Pulmonary: No increased work of breathing or signs of respiratory distress Breast: Deferred Gastrointestinal: Abdomen gravid, non-tender, no masses. exam: Deferred Neurologic: Alert and oriented. Moves all extremities equally. Skin: Skin and subcutaneous tissue were normal without rashes or lesions on exposed areas. Psychiatric: Mood and affect were normal. FHT 140s Assessment/Plan care O+/RI/HCV-/HIV- Needs HBV and syphilis G/C negative Tdap received US 05/27 at 13w2d: small ant RENE, SIUP US 06/25 at 17w2d: ant plac, CL 3.3cm US 07/05 at 18w5d: breech, ant plac, AF nl, AC 50%, EFW 56% (264g), CL 3.2cm, normal anatomy US 07/22 at 21w1d: transverse, Ant plac, 3VC, AC 43%, EFW 29% (380g), CL 3.7cm, normal completion ofanatomy US 08/19 at 25w1d: breech, funic, ant plac, 3VC, AF nl, AC 15%, EFW 16% (696g), normal UAD, CL 3.9cm Plan for TOLAC PPBC BTLIN Cavazos signed 09/23/24 Tachycardia Arrhythmia Had tachycardia and arrhythmia during admission to [facility] on 09/19 HR to 170s-180s with standing, associated CP and SOA ECHO during this admission showed LVEF 55% with mild mitral and tricuspid regurg per patient report Was not started on medications PLAN Cardiology referral sent, if unable to get in this week recommend admission to labor rosas for expedited inpatient evaluation Metoprolol 12.5mg BID ordered Hypokalemia Hypomagnesemia Proteinuria History of hypokalemia in 3T with prior pregnancies requiring transfusions. Usually starts at 33w but this started 28w Has PICC Most recent labs 09/19: potassium 2.8, mag 1.3 Receives potassium and mag infusions every other day, currently receiving 160mEq potassium every other day Has never been evaluated by flight attendant/inflight manager for salt wasting nephropathy PLAN Has nephrology appt 09/25 May need daily infusions if unable to keep potassium and magnesium within normal range History of cone History of LEEP CL 06/25 3.3cm CL 07/05 3.2cm CL 07/22 3.7cm CL 08/19: 3.9cm Delivery Planning in G1 and G2 CS G3 for bradycardia, emergent x2 PPT 2807g Plan for TOLAC Encounter Time : A total of 30 minutes was spent on this visit reviewing the patient's history, counseling the patient, and documenting this visit. (Est [id number]) Brandee Pringle MD Obstetrics & Gynecology, PGY-2 [1] Allergies Allergen Reactions Peanuts [Peanut Allergen Powder-Dnfp] Hives Cosigned by Liborio Weller MD at 09/23/2024 8:27 PM EDT Associated attestation - Liborio Weller MD - 09/23/2024 8:27 PM EDT I saw and evaluated the patient with the resident/fellow. I discussed the case with the resident/fellow and agree with the findings and plan as documented. documented in this encounter Plan of Treatment Upcoming Encounters Date Type Department Care Team (Late st Contact Info) Description 11/21/2024 11:15 AM EDT Visit Medical Office Building Obstetrics and Gynecology [address] [facility], [address] [place] [address] Nneka Gipson MD [address] [place] [id number] 12/25/2024 1:00 PM EST Office Visit [facility] Nephrology, Bone & Mineral Metabolism [address] [facility], [address] [place] [address] Scheduled Referrals Name Type Priority Associated Diagnoses Orde r Schedule Ambulatory referral to Cardiology Outpatient Referral Routine Supervision of high risk , antepartum Cardiac arrhythmia, unspecified cardiac arrhythmia type Expected: 09/23/2024 (Approximate), Expires: 03/27/2026 documented as of this encounter Procedures Procedure Name Priority Date/Time Associated Diagnosis Comments POCT URINALYSIS DIPSTICK Routine 09/23/2024 10:54 AM EDT Supervision of high risk , antepartum documented in this encounter Results * (ABNORMAL) POCT Urinalysis Dipstick (09/23/2024 10:54 AM EDT) POCT Urine Color Yellow POCT Urine Clarity Clear POCT Glucose Urine Negative Negative mg/dL POCT Bilirubin, Urine Small(A) Negative POCT Ketones, Urine 40(A) Negative mg/dL POCT Specific [place], Urine 1.015 POCT Blood, Urine Negative Negative POCT pH, Urine >=9.0(A) 5.0 to 8.0 POCT Protein, Urine 100(A) Negative mg/dL POCT Urobilinogen, Urine 0.2 0.2, 1 E.U./dL POCT Nitrite, Urine Negative Negative POCT Leukocyte Esterase, Urine Negative Negative Test Strip Lot Number [id number] Test Strip Lot Expiration 07/2025 Urine Urine specimen obtained by clean catch procedure / Unknown 09/23/2024 10:54 AM EDT Liborio Weller MD POINT OF CARE TEST ENTER/EDIT ORDERABLES Edited Result - Final documented in this encounter Visit Diagnoses Diagnosis Supervision of high risk , antepartum- Primary Cardiac arrhythmia, unspecified cardiac arrhythmia type documented in this encounter Additional Health Concerns Assessment Noted Time A Body Mass Index follow-up plan has been documented for the patient 09/23/2024 8:28 PM EDT documented as of this encounter Care Teams Pricer Bagger Relationship Specialty Start Date End Date Norma Friedman APRN [address] [place] [address] PCP - General 09/23/24 documented as of this encounter
--- OUTSIDE RECORDS SUMMARY | 2024-09-25 14:20 | XMS_ITS | Encounter Summary ---
Author Organization Healthcare Address [address] [place] [address] Care Team Providers Care Reservation Agent Name Role Phone Norma Friedman JOLENE Primary Care Provider +1- [phone] Reason for Referral * Consultation (Routine) - Authorized Specialty Diagnoses / Procedures Referred By Tarik pedersen Referred To Contact Diagnoses Hypokalemia Bill Patrick MD [address] [place] [phone] Phone: tel: fax: Referral ID Status Reason Start Date Expiration Date V isits Requested Visits Authorized [id number] Authorized 09/25/2024 03/27/2026 1 1 * Imaging (Routine) - Authorized Specialty Diagnoses / Procedures Referred By Tarik pedersen Referred To Contact Radiology Diagnoses Hypokalemia Procedures US Renal Complete Bill Patrick MD [address] [place] [phone] Phone: tel: fax: Referral ID Status Reason Start Date Expiration Date V isits Requested Visits Authorized [id number] Authorized 09/25/2024 03/27/2026 1 1 Reason for Visit * Reason Comments Consult * Consultation (Routine) - Closed Specialty Diagnoses / Procedures Referred By Tarik pedersen Referred To Contact Nephrology Diagnoses Hypokalemia Liborio Weller MD [address] [address] Phone: tel: fax: [facility] Nephrology, Bone & Mineral Metabolism [address] , [address] [place] [address] Phone: tel: fax: Referral ID Status Reason Start Date Expiration Date V isits Requested Visits Authorized [id number] Closed Specialty Services Required 09/14/2024 03/16/2026 1 1 Encounter Details Date Type Department Care Team (Late st Contact Info) Description 09/25/2024 2:20 PM EDT Office Visit [facility] Nephrology, Bone & Mineral Metabolism [address] , [address] [place] [address] Bill Patrick MD [address] [place] [address] Hypokalemia (Primary Dx) Social History [...] more drinks on one occasion? Never 09/23/2024 [place] Depression Scale Answer Date Recorded [place] Depression Scale Total 0 09/23/2024 The thought [...] 37 weeks andshe did not see a Furnace Repair Mechanic at that time. Also notes she has [...] Date SECTION, LOW TRANSVERSE N/A section from [facility] DILATION AND CURETTAGE OF UTERUS N/A Dilation and curettage from [facility] WISDOM TOOTH EXTRACTION N/A Oral Surgery Tooth Extraction [place] Tooth from [facility] [3] Family History Problem Relation Name Age [...] mouth 3 times a day.) Prenat MV-Min w/[id number] ( COMPLETE PO) thiamine (Vitamin B-1) 100 [...] Upcoming Encounters Date Type Department Care Team ([facility] st Contact Info) Description 11/21/2024 11:15 AM EDT Visit [facility] Obstetrics and Gynecology [address] [facility] [address], [address] [place] [address] Nneka Gipson MD [address] [place] [address] 12/25/2024 1:00 PM EST Office Visit [facility] Nephrology, Bone & Mineral Metabolism [address] [facility] [address] [facility] [address], [address] [place] [address] Scheduled Orders Name Type Priority [...] Chloride, Urine 25 mmol/L 2:03 PM EDT [facility] Urine Urine specimen obtained by clean catch procedure / Unknown Non-blood Collection / Unknown 09/26/2024 10:07 AM EDT 09/26/2024 10:07 AM EDT us Bill Patrick MD LAB URINE ORDERABLES Final Resul t [facility] [address] [place] [address] * Protein, Random, Urine with Creatinine (09/26/2024 10:03 AM EDT) Protein, Urine 26 mg/dL 09/26/2024 12:08 PM EDT [facility] Creatinine, Urine 199 mg/dL 09/26/2024 12:08 PM EDT [facility] Protein/Creati nine Ratio 0.1 mg/mg Creat 09/26/2024 12:08 PM EDT [facility] Urine Urine specimen obtained by clean catch procedure / Unknown Non-blood Collection / Unknown 09/26/2024 10:03 AM EDT 09/26/2024 10:04 AM EDT us Bill Patrick MD LAB URINE ORDERABLES Final Resul t Performing Organization Address City/[facility] Co de Phone Number [facility] [address] [place] [address] * Potassium, urine, random (09/26/2024 10:02 AM EDT) Potassium, Urine 43 mmol/L 09/26/2024 11:55 AM EDT [facility] Urine Urine specimen obtained by clean catch procedure / Unknown Non-blood Collection / Unknown 09/26/2024 10:02 AM EDT 09/26/2024 10:02 AM EDT us Bill Patrick MD LAB URINE ORDERABLES Final Resul t Performing Organization Address [facility] de Phone Number [facility] [address] [place] [address] * Osmolality, urine (09/26/2024 10:02 AM EDT) Osmolality, Urine 404 50 - 1,200 mOsm/kg 09/26/2024 1:48 PM EDT [facility] Urine Urine specimen obtained by clean catch procedure / Unknown Non-blood Collection / Unknown 09/26/2024 10:02 AM EDT 09/26/2024 10:02 AM EDT us Bill Patrick MD LAB URINE ORDERABLES Final Resul t Performing Organization Address City/[facility] Co de Phone Number [facility] [address] [place] [address] * Sodium, urine, random (09/26/2024 10:02 AM EDT) Sodium, Urine 110 mmol/L 09/26/2024 11:55 AM EDT [facility] Urine Urine specimen obtained by clean catch procedure / Unknown Non-blood Collection / Unknown 09/26/2024 10:02 AM EDT 09/26/2024 10:02 AM EDT us Bill Patrick MD LAB URINE ORDERABLES Final Resul t [facility] [address] [place] [address] * Antinuclear Antibody (JEFFERY), HEp-2, IgG (09/26/2024 9:32 AM EDT) JEFFERY INTERPRETIVE COMMENT See Note 09/28/2024 5:13 PM EDT [facility] ([employer]) Anti Nuc Ab Screen <1:80 <1:80 09/28/2024 5:13 PM EDT [facility] ([employer]) Blood Venous blood specimen / Unknown Venipuncture / Unknown 09/26/2024 9:32 AM EDT 09/26/2024 9:32 AM EDT Narrative [facility] ([facility]) - 09/28/2024 5:13 PM EDT [...] rings, and cytoplasmic speckled patterns. Performed By: [facility] [address] [place] [id number] Production Analyst: Brandon Bell MD, PhD CLIA Number: [id number] Bill Patrick MD LAB BLOOD ORDERABLES Final Resul t [facility] ([facility]) [address] [place] [address] * Rheumatoid factor, plasma (09/26/2024 9:32 AM EDT) Rheumatoid Factor, Plasma <10 <14 IU/mL 09/26/2024 1:49 PM EDT [facility] Blood Venous blood specimen / Unknown Venipuncture / Unknown 09/26/2024 9:32 AM EDT 09/26/2024 9:32 AM EDT us Bill Patrick MD LAB BLOOD ORDERABLES Final Resul t [facility] [address] [place] [address] * SSB (LA) (YARA) ANTIBODY, IGG (09/26/2024 9:32 AM EDT) Pathologist [facility] SSB (LA) (YARA) Antibody, IgG 0 0 - 40 AU/mL 09/28/2024 5:47 PM EDT [facility] ([facility]) Serum Venous blood specimen / Unknown 09/26/2024 9:32 AM EDT 09/26/2024 9:32 AM EDT Narrative [facility] ([facility]) - 09/28/2024 5:47 PM EDT INTERPRETIVE INFORMATION: [...] (PSS) also have this antibody. Performed By: [facility] [address] [place] [address] Production Analyst: Brandon Bell MD, PhD CLIA Number: [id number] Bill Patrick MD LAB BLOOD ORDERABLES Final Resul t [employer]) [address] [place] [address] * SSA 52 and 60 (Ro) (YARA) Antibodies, IgG (09/26/2024 9:32 AM EDT) SSA-52 (RO52) (YARA) Antibody, IgG 2 0 - 40 AU/mL 09/28/2024 5:47 PM EDT [facility] ([employer]) SSA-60 (RO60) (YARA) Antibody, IgG 0 0 - 40 AU/mL 09/28/2024 5:47 PM EDT [facility] ([employer]) Serum 09/26/2024 9:32 AM EDT 09/26/2024 9:32 AM EDT Narrative [facility] ([employer]) - 09/28/2024 5:47 PM EDT INTERPRETIVE INFORMATION: [...] AU/mL or Greater .......... Positive Performed By: [facility] [address] [place] [address] Production Analyst: Brandon Bell MD, PhD CLIA Number: [id number] us Bill Patrick MD LAB REF LAB BLOOD AND FLUID ORD Final Result [facility] ([facility]) [address] [place] [address] * (ABNORMAL) Renal function panel (09/26/2024 9:32 AM EDT) Glucose, Plasma 87 74 - 99 mg/dL 09/26/2024 12:24 PM EDT [facility] BUN, Plasma 5(L) 7 - 21 mg/dL 09/26/2024 12:24 PM EDT [facility] Creatinine, Plasma 0.72 0.60 - 1.10 mg/dL 09/26/2024 12:24 PM EDT [facility] BUN/Creatinine Ratio 7 09/26/2024 12:24 PM EDT [facility] Sodium, Plasma 135(L) 136 - 145 mmol/L 09/26/2024 12:24 PM EDT [facility] Potassium, Plasma 3.1(L) 3.6 - 4.9 mmol/L 09/26/2024 12:24 PM EDT [facility] Chloride, Plasma 95(L) 97 - 107 mmol/L 09/26/2024 12:24 PM EDT [facility] CO2, Plasma 26 22 - 29 mmol/L 09/26/2024 12:24 PM EDT [facility] Anion Gap 14 6 - 16 mmol/L 09/26/2024 12:24 PM EDT [facility] Total Calcium, Plasma 9.4 8.9 - 10.2 mg/dL 09/26/2024 12:24 PM EDT [facility] Phosphorus, Plasma 3.5 2.5 - 4.5 mg/dL 09/26/2024 12:24 PM EDT [facility] Albumin, Plasma 3.6 3.5 - 5.2 g/dL 09/26/2024 12:24 PM EDT [facility] eGFRcr 113.4 mL/min/1.7 3m*2 09/26/2024 12:24 PM EDT [facility] Comment:Reported eGFRcr in m L/min/1.73m2 is based the CKD-EPI 2020 equation that does not use a race coefficient. Blood Venous blood specimen / Unknown Venipuncture / Unknown 09/26/2024 9:32 AM EDT 09/26/2024 9:32 AM EDT us Bill Patrick MD LAB BLOOD ORDERABLES Final Resul t Performing Organization Address City/[facility] de Phone Number [facility] [address] [place] [address] * (ABNORMAL) Osmolality (09/26/2024 9:32 AM EDT) Osmolality, Serum 273(L) 275 - 295 mOsm/Kg 09/26/2024 2:10 PM EDT [facility] Blood Venous blood specimen / Unknown Venipuncture / Unknown 09/26/2024 9:32 AM EDT 09/26/2024 9:32 AM EDT us Bill Patrcik MD LAB BLOOD ORDERABLES Final Resul t Performing Organization Address City/[facility] de Phone Number [facility] [address] [place] [address] documented in this encounter Visit Diagnoses Diagnosis Hypokalemia- Primary Hypopotassemia documented in this encounter Additional Health Concerns Assessment Noted Time A fall risk assessment has been complete d for the patient 09/25/2024 3:05 PM EDT A Body Mass Index follow-up plan has been documented for the patient 10/05/2024 8:54 PM EDT documented as of this encounter Care Teams Reservation Agent Relationship Specialty Start Date End Date Norma Friedman APRN [address] [place] [id number] PCP - General 09/23/24 documented as of this encounter
--- OUTSIDE RECORDS SUMMARY | 2024-09-26 08:00 | XMS_ITS | Encounter Summary ---
Author Organization [facility] Address [address] [place] [address] Care Team Providers Care Development Director Name Role Phone Norma Friedman DIVISION OFFICER [employer] DEPARTMENT Primary Care Provider +1- [phone] Lizz Trinh RN Unavailable Unavailable Reason for Referral * Consultation (Routine) - Closed Specialty Diagnoses / Procedures Referred By Tarik t Referred To Contact Diagnoses Palpitations Syncope and collapse Nneka Vasquez MD [address] [place] [phone] Phone: tel: fax: Referral ID Status Reason Start Date Expiration Date Visits Re quested Visits Authorized [id number] Closed 09/26/2024 03/28/2026 1 1 * Cardiac Stress Testing (Routine) - Closed Specialty Diagnoses / Procedures Referred By Contac t Referred To Contact Cardiology Diagnoses Palpitations Syncope and collapse Procedures Adult Patch Monitor - 7 Day Nneka Vasquez MD [address] [place] [phone] Phone: tel: fax: Referral ID Status Reason Start Date Expiration Date Visits Re quested Visits Authorized [id number] Closed 09/26/2024 03/28/2026 1 1 Reason for Visit * Consultation (Routine) - Closed Specialty Diagnoses / Procedures Referred By Contac t Referred To Contact Cardiology Diagnoses Supervision of high risk , antepartum Cardiac arrhythmia, unspecified cardiac arrhythmia type [place] Preciado MD [address] [address] Phone: tel: fax: Referral ID Status Reason Start Date Expiration Date V isits Requested Visits Authorized [id number] Closed Specialty Services Required 09/23/2024 03/25/2026 1 1 Encounter Details Date Type Department Care Team (Late st Contact Info) Description 09/26/2024 8:00 AM EDT Office Visit [facility] [place] [address] [facility], [address] [place] [address] Nneka Vasquez MD [address] [place] [address] Syncope and collapse (Primary Dx); [...] more drinks on one occasion? Never 09/23/2024 [place] Depression Scale Answer Date Recorded [place] Depression Scale Total 0 09/23/2024 The thought [...] Miscellaneous Notes * Progress Notes - Nneka Vasquez MD - 09/26/2024 8:00 AM EDT [place] [facility] ([facility]) Problem List #Hypomagnesium and Hypokalemia -- [...] home with no plans. 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 lunchroom monitor today to evaluate for abnormal rhythms and plan for follow up in 4 weeks to discuss results and discuss delivery plans and monitoring. Nneka Vasquez MD [1] Past Medical History: Diagnosis Date [...] TOOTH EXTRACTION N/A Oral Surgery Tooth Extraction [place] Tooth from [employer] [3] Social History Socioeconomic History Marital status: [...] Resource Strain: Low Risk (05/28/2024) Received from [facility] Overall Financial Resource Strain (CARDIA) Difficulty of Paying Living Expenses: Not hard at all Food Insecurity: No Food Insecurity (05/28/2024) Received from [facility] Hunger Vital Sign Within the past 12 months, you worried that your food would run out before you got the money to buymore.: Never true Within the past 12 months, the food you bought just didn't last and you didn't have money to get more.: Never true Transportation Needs: No Transportation Needs (05/28/2024) Received from [facility] PRAPARE - Transportation In the past 12 months, has lack of transportation kept you from medical appointments or from getting medications?: No In the past 12 months, has lack of transportation kept you from meetings, work, or from getting things needed for daily living?: No Physical Activity: Sufficiently Active (05/28/2024) Received from [facility] Exercise Vital Sign On average, how many days per week do you engage in moderate to strenuous exercise (like a brisk walk)?: 5 days On average, how many minutes do you engage in exercise at this level?: 40 min Stress: Stress Concern Present (05/27/2024) Received from [facility] [place] of Occupational Health - Occupational Stress Questionnaire Feeling of Stress : To some extent Social Connections: Not At Risk (05/28/2024) Received from [facility] Family and Community Support If for any reason you need help with day-to-day activities such as bathing, preparing meals, shopping, managing finances, etc., do you get the help you need?: I don't need any help How often do you feel lonely or isolated from those around you?: Sometimes Intimate Partner Violence: Not At Risk (08/19/2024) Received from [facility] Abuse Screen Feels Unsafe at Home or Work/School: no Feels Threatened by Someone: no Does Anyone Try to Keep You From Having Contact with Others or Doing Things Outside Your Home?: no Physical Signs of Abuse Present: no Housing Stability: Not At Risk (08/20/2024) Received from [facility] Housing Stability Current Living Arrangements: home Potentially [...] Upcoming Encounters Date Type Department Care Team ([facility] st Contact Info) Description 11/21/2024 11:15 AM EDT Visit Medical [facility] Building Obstetrics and Gynecology [address] [facility], [address] [place] [address] Nneka Gipson MD [address] [place] [address] 12/25/2024 1:00 PM EST [facility] Nephrology, Bone & Mineral Metabolism [address] [facility], [address] [place] [address] Scheduled Referrals Name Type Priority Associated Diagnoses Order Schedule Follow Up Cardiology Outpatient Referral Routine Palpitations Syncope and collapse Expected: 10/24/2024, Expires: 03/29/2026 documented as of this encounter Procedures Procedure Name Priority Date/Time Associated Diagnosis Comments ECG ADULT Routine 09/26/2024 8:21 AM EDT Atrial fibrillation, unspecified type (CMS/HCC) documented in this encounter Results * Adult Patch Monitor - 7 Day (09/26/2024 9:23 AM EDT) BSA 1.78 m2 BIOTELEMETRY Anatomical Region Laterality Modality Other Narrative 10/12/2024 5:12 PM EDT NNEKA VASQUEZ MD has been notified of the fainting/syncope [09/30/2024 11:56:25 AM - VICKEY HARLEY] PRELIMINARY FINDINGS: Analysis date: 09/30/24 - by GABRIELLA LARA REPORT MET PHYSICIAN S NOTIFICATION CRITERIA: Patient reported Syncope/ Fainting at 04:51 PM on 09/27/24. Patient monitored for 3d 22h, analyzable time was 3d 22h starting on 09/26/2024 09:19 am. Primary rhythm was Sinus tachycardia. Average heart rate was 105 bpm, Minimum heart rate was 73 bpm on Day 2 / :24:57 am, Max heart rate was 181 bpm on Day 3 / 08:47:57 pm SVE(s): [place] was 3.46 %, [id number] total SVE(s) SV Arrhythmia(s): 21 events, longest event 7 beats on Day :05:26 am, fastest event 111 bpm on Day :02:39 am PVC(s): [place] was 0.03 %, 189 total PVC(s), 1 disparate morphologies Patient recorded 6 event(s) during the monitoring period PHYSICIAN COMMENTS: Predominant rhythm is sinus rhythm. Occasional premature atrial and rare premature ventricular complexes were recorded during the monitoring period. No malignant cardiac rhythms were recorded during the monitoring period. Triggered events were not associated with clinical arrhythmias (all during sinus rhythm). Nneka Vasquez MD CV CARDIAC SERVICES PROCED URES Final Result * ECG Adult (Now - Performed in your clinic) (09/26/2024 8:21 AM EDT) EKG DIAGNOSIS CLASS Normal MUSE ECG Ventricular Rate 84 BPM MUSE ECG Atrial Rate 84 BPM MUSE ECG [place] Interval 148 ms MUSE ECG QRSD Interval 74 ms MUSE ECG QT Interval 374 ms MUSE ECG QTC Interval 441 ms MUSE ECG P [place] 60 degrees MUSE ECG R [place] 36 degrees MUSE ECG T Wave [place] 55 degrees MUSE ECG Diagnosis Normal sinus rhythm with sinus arrhythmia MUSE ECG Diagnosis Normal ECG MUSE ECG Diagnosis MUSE ECG Diagnosis Confirmed by Abad South ([id number]) on 09/26/2024 12:13:59 PM MUSE ECG 09/26/2024 8:21 AM EDT 09/26/2024 12:13 PM EDT Nneka Vasquez MD ECG ORDERABLES Final Resu lt MUSE ECG documented in this encounter Visit Diagnoses Diagnosis Syncope and collapse- Primary Atrial fibrillation, unspecified type (CMS/HCC) Palpitations Palpitations Syncope and collapse documented in this encounter Additional Health Concerns Assessment Noted Time A fall risk assessment has been complete d for the patient 09/26/2024 8:15 AM EDT A Body Mass Index follow-up plan has been documented for the patient 09/27/2024 10:22 AM EDT documented as of this encounter Care Teams Development Director Relationship Specialty Start Date End Date Norma Friedman APRN [address] [place] [address] PCP - General 09/23/24 Lizz Trinh, RN [facility] Registered Nurse Cardiology 09/26/24 documented as of this encounter
--- OUTSIDE RECORDS SUMMARY | 2024-09-26 09:06 | XMS_ITS | Encounter Summary ---
Author Organization [facility] Address [address] [place] [address] Care Team Providers Care Hydrometallurgical Engineer Name Role Phone Elder Kadedev Coy CVT RN Primary Care Provider +1- [phone] Lizz Trinh RN Unavailable Unavailable Reason for Referral * Cardiac Stress Testing (Routine) - Closed Specialty Diagnoses / Procedures Referred By Tarik pedersen Referred To Contact Cardiology Diagnoses Palpitations Syncope and collapse Procedures Adult Patch Monitor - 7 Day Nneka Vasquez MD [address] [place] [address] Phone: tel: fax: Referral ID Status Reason Start Date Expiration Date Visits Re quested Visits Authorized [id number] Closed 09/26/2024 03/28/2026 1 1 Reason for Visit * Cardiac Stress Testing (Routine) - Closed Specialty Diagnoses / Procedures Referred By Tarik pedersen Referred To Contact Cardiology Diagnoses Palpitations Syncope and collapse Procedures Adult Patch Monitor - 7 Day Nneka Vasquez MD [address] [place] [address] Phone: tel: fax: Referral ID Status Reason Start Date Expiration Date Visits Re quested Visits Authorized [id number] Closed 09/26/2024 03/28/2026 1 1 Encounter Details Date Type Department Care Team (Latest Contact Info) Description 09/26/2024 9:06 AM EDT - 09/26/2024 11:59 PM EDT Hospital Encounter Medical Office Building Cardiac Diagnostic Testing Medical Office Building Echo Lab [address] [facility], [address] [place] [address] Palpitations; Syncope and collapse Discharge [...] more drinks on one occasion? Never 09/23/2024 [place] Depression Scale Answer Date Recorded [place] Depression Scale Total 0 09/23/2024 The thought [...] tablet by mouth daily. 09/12/2024 Prenat MV-Min w/Um-Thrwpx-ISU ( COMPLETE PO) 12/25/2018 thiamine (Vitamin B-1) [...] Obstetrics and Gynecology [address] [facility] [facility], [address] [place] [address] Nneka Gipson MD [address] [place] [address] 12/25/2024 1:00 PM EST Office Visit [facility] Nephrology, Bone & Mineral Metabolism [address] [facility], [address] [place] [address] documented as of this encounter [...] rate was 181 bpm on Day 3 :47:57 pm SVE(s): [place] was 3.46 %, [address] total SVE(s) SV Arrhythmia(s): 21 events, longest event 7 beats on Day :05:26 am, fastest event 111 bpm on Day :02:39 am PVC(s): [place] was 0.03 %, 189 total PVC(s), 1 [...] documented as of this encounter Care Teams Hydrometallurgical Engineer Relationship Specialty Start Date End Date Norma Friedman APRN [address] [place] [address] PCP - General 09/23/24 Lizz Trinh, RN [facility] Registered Nurse Cardiology 09/26/24 documented as of this encounter
--- OUTSIDE RECORDS SUMMARY | 2024-10-17 09:15 | XMS_ITS | Encounter Summary ---
Author Organization Healthcare Address [address] [place] [address] Care Team Providers Care Brewery Worker Name Role Phone Elder Kadedev Coy CMO & PRESIDENT Primary Care Provider +1- [phone] Lizz Trinh RN Unavailable Unavailable Reason for Visit * Auth/Cert (Routine) Specialty Diagnoses / Procedures Referred By Tarik pedersen Referred To Contact Diagnoses Hypokalemia Electrolyte abnormality Hilton Montelongo MD [address] [facility] [address] [place] [address] Phone: tel: fax: [facility] [address] [place] [address] Phone: tel: fax: Referral ID Status Reason Start Date Expiration Date Visits Re quested Visits Authorized [id number] 1 1 Encounter Details Date Type Department Care Team (Latest Contact Info) Description 10/17/2024 9:15 AM EDT Routine Medical Office Building Obstetrics and Gynecology [address] [facility], [address] [place] [address] Nneka Gipson MD [address] [place] [address] NST (non-stress test) nonreactive (Primary Dx); Supervision of high risk , antepartum Social History Tobacco Use Types Packs/Day Years [...] more drinks on one occasion? Never 09/23/2024 Carolina Depression Scale Answer Date Recorded [place] Depression Scale Total 0 09/23/2024 The thought [...] Sign Reading Time Taken Comments Blood Pressure 94/69 10/17/2024 9:08 AM EDT Pulse 94 10/17/2024 9:08 AM EDT Temperature 36.4 C (97.5 F) 10/17/2024 9:08 AM EDT Respiratory Rate 16 10/17/2024 9:08 AM EDT Oxygen Saturation 97% 10/17/2024 9:08 AM EDT Inhaled Oxygen Concentration - - Weight 67 kg (147 lb 11.3 oz) 10/17/2024 9:08 AM EDT Height 162.6 cm (5' 4 ) 10/17/2024 9:08 AM EDT Body Mass Index 25.35 10/17/2024 9:08 AM EDT documented in this encounter Miscellaneous Notes * Progress Notes - Kaitlyn Richter MD - 10/17/2024 9:15 AM EDT MFM Follow Up Subjective Whitney Presley is seen today for a follow up visit. Her is complicated by tachycardia and arrhythmia, significant electrolyte abnormalities, and hx of cone and leep. Feeling movement although has been decreased the last few days. No VB, LOF. Feeling pelvic pressure lately. Worked up for PTL over the weekend and given ANCS 10/11-10/12. Objective Visit Vitals BP 94/69 Pulse 94 Temp 36.4 ??C (97.5 ??F) (Tympanic) Resp 16 Wt Readings from Last 1 Encounters: 10/17/24 67 kg (147 lb 11.3 oz) Current BMI:: Body mass index is 25.35 kg/m??. Physical Exam OBGyn Exam Constitutional: No [...] areas. Psychiatric: Mood and affect were normal. NST: non reactive, sent to US for BPP Assessment/Plan care PNC: Brandan with primary OB Dr Marin in [facility] O+/RI/HCV-/HIV- Needs HBV and syphilis G/C negative Status post TDaP US 05/27 at 13w2d: small ant RENE, [...] EFW 16% (696g), normal UAD, CL 3.9cm US 10/14: ANURADHA nml, EFW 9%, AC 16%, normal dopplers Plan: Plan for TOLAC PPBC BTL, KMA signed 09/23/24 S/p ANCS 10/11-10/12 for pre-term contractions -Non reactive NST today, will send to US for BIOPHYSICAL PROFILE Intrauterine Growth Restriction US 10/14: ANURADHA nml, EFW 9%, AC 16%, normal umbilical artery dopplers Plan: -Twice weekly NSTs, weekly ultrasounds with Doppler Hypokalemia Hypomagnesemia Proteinuria History of hypokalemia in 3T with prior pregnancies requiring transfusions. 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, continue repletion with IV infusions every other day and PO potassium, evaluated for Sjogren's and was negative, will re-evaluate for causes after delivery - Told by her current IM physician that she has secondary hyperaldosteronism after 24 hour urine and aldosterone Plan: -Continue 160mEq of IV potassium every other day, PO potassium and Po magnesium Sinus Tachycardia Had tachycardia and arrhythmia during admission to [facility] on 09/19 HR to 170s-180s with standing, associated CP and SOA ECHO during this admission showed LVEF 55% with mild mitral and tricuspid regurg per patient report Was not started on medications Cardiology: seen 09/26, s/p Holter monitor suggestive of sinus tachycardia, discussed syncopal episodes likely vasovagal, holding on Metoprolol due to patient comfort/shared decision making Intrahepatic Cholestasis of 10/12: 81 AST---10/14: AST 161, ALT 92 -10/03: Bile acids 14 -On Ursodiol 900 mg TID, significant itching Plan: -Will repeat liver function labs today History of cone History of LEEP CL 06/25 3.3cm CL 07/05 3.2cm CL 07/22 3.7cm CL 08/19: 3.9cm Plan: Per primary, her recent SVE was 2cm / 30% effaced Delivery Planning in G1 and G2 CS G3 for bradycardia, emergent x2 PPT 2807g Plan for TOLAC Ideally would deliver at 37 weeks pending need for frequency of infusions RTC: 1 week, will send to US for BPP Kaitlyn Richter MD PGY-2, Obstetrics and Gynecology [facility] Cosigned by Nneka Gipson MD at 10/17/2024 12:41 PM EDT Associated attestation - Nneka Gipson MD - 10/17/2024 12:41 PM EDT I saw and evaluated the patient with the resident/fellow. I discussed the case with the resident/fellow and agree with the findings and plan as documented. Patient lives in [facility] about 1.5h away, has primary OB Dr Marin there and prefers to do majority of care there. 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 She has significant electrolyte derangements which are managed with q2d infusions at a hospital locally thru her PICC line. She additionally has developed cholestasis of with elevated LFTs. Her most recent US with her primary OB demonstrated FGR with normal UAD, which she reportswas also present in her previous pregnancies. Goal will be 37wk IOL at her local hospital with supportive care with electrolyte repletion until that time with close monitoring for FGR. Additionally, requested that she repeat CMP for LFT trend and she will get this done tomorrow with her infusions. Nneka Gipson M.D. Maternal- Medicine 12:41 PM documented in this encounter Plan of Treatment Upcoming Encounters Date Type Department Care Team (Late st Contact Info) Description 11/21/2024 11:15 AM EDT Visit [facility] Obstetrics and Gynecology [address] [facility], [address] [place] [address] Nneka Gipson MD [address] [place] [address] 12/25/2024 1:00 PM EST Office Visit [facility] Nephrology, Bone & Mineral Metabolism [address] [facility], [address] [place] [address] documented as of this encounter Procedures Procedure Name Priority Date/Time Associated Diagnosis Comments POCT URINALYSIS DIPSTICK Routine 10/17/2024 9:14 AM EDT Supervision of high risk , antepartum documented in this encounter Results * (ABNORMAL) POCT Urinalysis Dipstick (10/17/2024 9:14 AM EDT) POCT Urine Color Yellow POCT Urine Clarity Clear POCT Glucose Urine Negative Negative mg/dL POCT Bilirubin, Urine Negative Negative POCT Ketones, Urine Negative Negative mg/dL POCT Specific [place], Urine 1.015 POCT Blood, Urine Negative Negative POCT pH, Urine 8.5(A) 5.0 to 8.0 POCT Protein, Urine 30(A) Negative mg/dL POCT Urobilinogen, Urine 0.2 0.2, 1 E.U./dL POCT Nitrite, Urine Negative Negative POCT Leukocyte Esterase, Urine Negative Negative Test Strip Lot Number [id number] Test Strip Lot Expiration 07/2025 Urine Urine specimen obtained by clean catch procedure / Unknown 10/17/2024 9:14 AM EDT Nneka Gipson MD POINT OF CARE TEST ENTER/ EDIT ORDERABLES Final Result documented in this encounter Visit Diagnoses Diagnosis NST (non-stress test) nonreactive- Primary Abnormal findings on screening Supervision of high risk , antepartum documented in this encounter Additional Health Concerns Assessment Noted Time A fall risk assessment has been complete d for the patient 09/26/2024 8:15 AM EDT A Body Mass Index follow-up plan has been documented for the patient 10/20/2024 9:52 AM EDT documented as of this encounter Care Teams Brewery Worker Relationship Specialty Start Date End Date Norma Friedman APRN [address] [place], [place] [id number] PCP - General 09/23/24 Lizz Trinh, RN [facility] Registered Nurse Cardiology 09/26/24 documented as of this encounter
--- OUTSIDE RECORDS SUMMARY | 2024-10-17 09:30 | XMS_ITS | Encounter Summary ---
Author Organization Healthcare Address [address] [place] [address] Care Team Providers Care Cement Finisher Helper Name Role Phone Norma Friedman FRUIT GRADER Primary Care Provider +1- [phone] Lizz Trinh RN Unavailable Unavailable Reason for Visit * Reason Comments NST/BPP Visit [facility]GR * Auth/Cert (Routine) Specialty Diagnoses / Procedures Referred By Contac t Referred To Contact Diagnoses Hypokalemia Electrolyte abnormality Hilton Montelongo MD [address] [facility] [address] [place] [address] Phone: tel: fax: [facility] H Labor and Delivery [address] [place] [address] Phone: tel: fax: Referral ID Status Reason Start Date Expiration Date Visits Re quested Visits Authorized [id number] 1 1 Encounter Details Date Type Department Care Team ([facility] st Contact Info) Description 10/17/2024 9:30 AM EDT NST Medical Office Building Obstetrics and Gynecology [address] [facility], [address] [place] [address] growth restriction antepartum (Primary Dx) [...] more drinks on one occasion? Never 09/23/2024 [place] Depression Scale Answer Date Recorded [place] Depression Scale Total 0 09/23/2024 The thought [...] AND GYNECOLOGY for a nonstress test with [facility] RPV. complicated by growth restriction. See encounter [...] Building Obstetrics and Gynecology [address] [facility], [address] [place] [address] Nneka Gipson MD [address] [place] [address] 12/25/2024 1:00 PM EST Office Visit [facility] Nephrology, Bone & Mineral Metabolism [address] [facility], [address] [place] [address] documented as of this encounter Visit Diagnoses Diagnosis growth restriction antepartum- Primary documented in this encounter Additional Health Concerns Assessment Noted Time A fall risk assessment has been complete d for the patient 09/26/2024 8:15 AM EDT A Body Mass Index follow-up plan has been documented for the patient 10/20/2024 9:52 AM EDT documented as of this encounter Care Teams Cement Finisher Helper Relationship Specialty Start Date End Date Norma Friedman APRN [address] [facility] [place] [address] PCP - General 09/23/24 Lizz Trinh, RN [facility] Registered Nurse Cardiology 09/26/24 documented as of this encounter
--- OUTSIDE RECORDS SUMMARY | 2024-10-17 10:30 | XMS_ITS | Encounter Summary ---
Author Organization Healthcare Address [address] [place] [address] Care Team Providers Care Billboard Mechanic Name Role Phone Elder Kadedev Coy DIRECTOR OF INDIVIDUAL GIVING Primary Care Provider +1- [phone] Lizz Trinh RN Unavailable Unavailable Reason for Visit * Auth/Cert (Routine) Specialty Diagnoses / Procedures Referred By Tarik pedersen Referred To Contact Diagnoses Hypokalemia Electrolyte abnormality Hilton Montelongo MD [address] [facility] [address] [place] [address] Phone: tel: fax: [facility] Labor and Delivery [address] [place] [address] Phone: tel: fax: Referral ID Status Reason Start Date Expiration Date Visits Re quested Visits Authorized [id number] 1 1 Encounter Details Date Type Department Care Team (Latest Contact Info) Description 10/17/2024 10:30 AM EDT - 10/17/2024 3:46 PM EDT Hospital Encounter Medical Office Building Obstetrics and Gynecology [address] [facility], [address] [place] [address] NST (non-stress test) nonreactive Discharge Disposition: Home or Self Care Social History Tobacco Use Types Packs/Day Years Used Date Smoking Tobacco: Never Passive Smoke Exposure: Never Smokeless Tobacco: Never Alcohol Use Standard Drinks/Week Comments Never 0 (1 standard drink = 0.6 oz pur e alcohol) PHQ-2 Answer Date Recorded Patient Health Questionnaire-2 Score 0 10/24/2024 PHQ-9 Answer Date Recorded Patient Health Questionnaire-9 Score 0 10/24/2024 AUDIT-C Answer Date Recorded Q1: How often do you have a drink containing alcohol? Never 09/23/2024 Q2: How many drinks containi ng alcohol do you have on a typical day when you are drinking? Patient does not drink Q3: How often do you have si x or more drinks on one occasion? Never 09/23/2024 [place] Depression Scale Answer Date Recorded [place] Depression Scale Total 0 09/23/2024 The thought [...] Harman RN documented as of this encounter Medications at Time of Discharge cyclobenzaprine (Flexeril) 5 MG tablet Take 1 tablet by mouth 3 times a day. 30 tablet 10/20/2024 famotidine (Pepcid) 20 MG tablet Take 1 tablet by mouth 2 times a day. 04/12/2024 FeroSul 325 (65 Fe) MG tablet Take 1 tablet by mouth daily. 09/12/2024 hydrOXYzine pamoate (Vistaril) 25 MG capsule Take 1 capsule by mouth every 6 hours as needed for anxiety. 30 capsule 10/20/2024 magnesium oxide (Mag-Ox) 400 (240 Mg) MG tablet Take 2 tablets by mouth 2 times a day. 10/04/2024 polyethylene glycol (Miralax) 17 GM/SCOOP powder Take 17 g by mouth 2 times a day. 10/04/2024 potassium chloride 20 MEQ/100ML IVPB Infuse 400 mL into a venous catheter every other day. Given 80-100 mEq every other day. potassium chloride CR (K-Tab) 20 MEQ ER tablet Take 2 tablets by mouth every 4 hours. Do not crush, chew, or split. Prenat MV-Min w/Yb-Zfzdgp-RDW ( COMPLETE PO) 12/25/2018 promethazine (Phenergan) 12.5 MG tablet Take 1 tablet by mouth 3 times a day. 09/27/2024 thiamine (Vitamin B-1) 100 MG tablet Take 1 tablet by mouth 1 time each day. 09/01/2024 ursodiol (Actigall) 300 MG capsule Take 1 capsule by mouth 2 times a day. 10/11/2024 metoprolol succinate XL (Toprol XL) 25 MG 24 hr tablet Take 0.5 tablets by mouth 2 times a day. Do not crush or chew. 30 tablet 1 09/23/2024 5 omeprazole (PriLOSEC) [address] capsule Take 1 capsule by mouth 1 time each day. 5 ondansetron ODT (Zofran-ODT) 4 MG disintegrating tablet [...] Upcoming Encounters Date Type Department Care Team ([facility] st Contact Info) Description 11/21/2024 11:15 AM EDT Visit Medical Office Building Obstetrics and Gynecology [address] [facility], [address] [place] [address] Nneka Gipson MD [address] [place] [address] 12/25/2024 1:00 PM EST Office Visit [facility] Nephrology, Bone & Mineral Metabolism [address] [facility], [address] [place] [address] documented as of this encounter Procedures Procedure Name Priority Date/Time Associated Diagnosis Comments OB US DETAIL ANATOMY Routine 10/17/2024 1:34 PM EDT NST (non-stress test) nonreactive documented in this encounter Results * OB US Detail Anatomy (10/17/2024 1:34 PM EDT) Anatomical Region Laterality Modality Body Ultrasound 10/17/2024 11:2 0 AM EDT Impressions 10/17/2024 2:52 PM EDT The OB Ultrasound you requested has been resulted. Please navigate to the Imaging tab in [employer] for review. This message has been generated by the interface. Narrative Procedure Note Melonie Wheeler MD - 10/17/2024 IMPRESSION: The OB Ultrasound you requested has been resulted. Please navigate to theImaging tab in [employer] for review. This message has been generated by theinterface. us Nneka Gipson MD IMG OB US PROCEDURES Lena l Result documented in this encounter Visit Diagnoses Diagnosis NST (non-stress test) nonreactive Abnormal findings on screening documented in this encounter Additional Health Concerns Assessment Noted Time A fall risk assessment has been complete d for the patient 09/26/2024 8:15 AM EDT A Body Mass Index follow-up plan has been documented for the patient 10/20/2024 9:52 AM EDT documented as of this encounter Care Teams Billboard Mechanic Relationship Specialty Start Date End Date Norma Friedman APRN [address] [place] [address] PCP - General 09/23/24 Lizz Trinh, RN [facility] Registered Nurse Cardiology 09/26/24 documented as of this encounter
--- OUTSIDE RECORDS SUMMARY | 2024-10-17 15:47 | XMS_ITS | Encounter Summary ---
Author Organization Healthcare Address [address] [place] [address] Care Team Providers Care Insurance Case Manager Name Role Phone Valentino burgerseven Coy PRODUCT ENGINEER Primary Care Provider [phone]- [phone] Lizz Trinh RN Unavailable Unavailable Reason for Visit * Auth/Cert (Routine) Specialty Diagnoses / Procedures Referred By Tarik pedersen Referred To Contact Diagnoses Hypokalemia Electrolyte abnormality Hilton Montelongo MD [address] [address] Phone: tel: fax: [facility] [address] [place] [address] Phone: tel: fax: Referral ID Status Reason Start Date Expiration Date Visits Re quested Visits Authorized [id number] 1 1 Encounter Details Date Type Department Care Team (Latest Contact Info) Description 10/17/2024 3:47 PM EDT - 10/20/2024 10:16 AM EDT Hospital Encounter [facility] [address] [place] [address] Hilton Montelongo MD [address] [address] Discharge Disposition: Home or Self [...] more drinks on one occasion? Never 09/23/2024 Lapaz Depression Scale Answer Date Recorded Lapaz Depression Scale Total 0 09/23/2024 The thought [...] 10/24/2024 7:52 AM EDT Nadine Lamb Feeling tired or having little energy [...] not crush, chew, or split. Prenat MV-Min w/Ij-Ayzjbp-CKQ ( COMPLETE PO) 12/25/2018 promethazine (Phenergan) 12.5 [...] Herrmann MD PhD Division of Hospital Medicine [phone] [1] azithromycin, 500 mg, Intravenous, Once in [...] famotidine OR famotidine PF, hydrOXYzinepamoate, magic mouthwash diphen/lido/hlzb-zkx-hsxjrf, melatonin, ondansetron ODT OR ondansetronOR ondansetron, prochlorperazine, promethazine, Insert peripheral IV AND Saline lock IV AN D sodium chloride, terbutaline * Sybil Real RN - 10/20/2024 9:51 AM EDT Images from the original note were not included. [id number] Hypokalemia Hypokalemia means a low level of [...] consciousness Last Reviewed Date: 2022 00:00:00 ?? [id number] [employer]. All rights reserved. This information is not [...] with a nurse. [facility] (Triage) [facility] [address] [place] [address] [facility]st[facility] & Gyne[facility] Medical Office Building [address] [facility], [address] [place] [address] [facility] [address] [place] [address] Family Practice [address], Third Floor [address] [place] [address] [facility] [address] [place] [address] [facility] Obstetrics & Gynecology [place] [address] [place] [address] [facility] Obstetrics & Gynecology [place] [address] [place] [address] * Discharge Summary - Shazia Booker MD - 10/20/2024 9:50 AM EDT Images from the original note were not included. Hospitalization Admit Date/Time: 10/17/2024 3:47 PM Admitting Attending: Hilton Montelongo Discharge Date: 10/20/2024 Discharge Attending Physician: Laury Cruz MD PCP name and Address: Norma Friedman, PRODUCT ENGINEER [address] [facility] [place] [id number] Referring provider name and address: No referring [...] Your Medications These medications were sent to [facility] [place], [place] - [address] [facility] [id number] cyclobenzaprine 5 MG tablet hydrOXYzine pamoate 25 [...] [id number] MOB 12/25/2024 1:00 PM ([place])ARIEL FELLOW [facility] PAC Test Results Pending At Discharge Pending [...] status upon discharge. Will schedule delivery at [facility] visit this week. Given the persistent and worsening electrolyteabnormalities resulting in cardiac arrhythmias despite aggressive IV and PO supplementation, it would be reasonable to move toward delivery sooner then previously planned. * Sybil Real RN - 10/20/2024 9:50 AM EDT Images from the original note were not included. [id number] About Arrhythmias Your heart beats about 60 [...] the doctor as soon as youcan to molded goods spot picker the device. You may have other [...] them. Last Reviewed Date: 2023 00:00:00 ?? [id number] [employer]. All rights reserved. This information is not [...] use. Last Reviewed Date: 2021 00:00:00 ?? [id number] [employer]. All rights reserved. This information is not [...] care, please call OB resident workroom at #[phone]. Susi Wren MD PGY3 Obstetrics and Gynecology [...] present and clear. Leads intact. Batteries changed. [id number]. Will continue to monitor. Vitals: 10/19/24 1735 [...] abnormalities Santos Herrmann MD PhD Division of Hospital Medicine [phone] [1] azithromycin, 500 mg, Intravenous, Once in [...] Status Stable. Patient on remote telemetry box [id number]. Has good signal and function. Lead placement [...] Presley Date of : 1990 [facility] Reason for consultation: Epigastric pain Subjective: History [...] Elvis Kay MD GI Fellow, PGY-5 Pager: [phone] [1] Past Medical History: Diagnosis Date Maternal [...] Date SECTION, LOW TRANSVERSE N/A section from [facility] DILATION AND CURETTAGE OF UTERUS N/A Dilation and curettage from [facility] WISDOM TOOTH EXTRACTION N/A Oral Surgery Tooth Extraction Sharon Tooth from [facility] [3] Family History Problem Relation Name Age [...] pt Multiple Births: No Uterine Activity Mode: Vanderwagen Contraction Frequency: one traced Contraction Duration: 140 [...] care, please call OB resident workroom at #[phone]. Shazia Booker MD OBGYN Resident PGY-3 Cosigned [...] Does have intermittent depressed T waves. Hard cable television program director at bedside. * Care Plan - [place] [...] Low Risk (05/28/2024) Received from [facility] Overall Financial Resource Strain (CARDIA) Difficulty of Paying Living Expenses: Not hard at all Food Insecurity: No Food Insecurity (05/28/2024) Received from [facility] Hunger Vital Sign Within the past 12 months, you worried that your food would run out before you got the money to buymore.: Never true Within the past 12 months, the food you bought just didn't last and you didn't have money to get more.: Never true Transportation Needs: No Transportation Needs (05/28/2024) Received from [facility] PRAPARE - Transportation In the past 12 months, has lack of transportation kept you from medical appointments or from getting medications?: No In the past 12 months, has lack of transportation kept you from meetings, work, or from getting things needed for daily living?: No Physical Activity: Sufficiently Active (05/28/2024) Received from [facility] Exercise Vital Sign On average, how many days per week do you engage in moderate to strenuous exercise (like a brisk walk)?: 5 days On average, how many minutes do you engage in exercise at this level?: 40 min Stress: Stress Concern Present (05/27/2024) Received from [facility] Citizen Of [place] of Occupational Health - Occupational Stress Questionnaire Feeling of Stress : To some extent Social Connections: Not At Risk (05/28/2024) Received from [facility] Family and Community Support If for any reason you need help with day-to-day activities such as bathing, preparing meals, shopping, managing finances, etc., do you get the help you need?: I don't need any help How often do you feel lonely or isolated from those around you?: Sometimes Intimate Partner Violence: Not At Risk (08/19/2024) Received from [facility] Abuse Screen Feels Unsafe at Home or Work/School: no Feels Threatened by Someone: no Does Anyone Try to Keep You From Having Contact with Others or Doing Things Outside Your Home?: no Physical Signs of Abuse Present: no Housing Stability: Not At Risk (08/20/2024) Received from [facility] Housing Stability Current Living Arrangements: home Potentially [...] follow. Urbano Donohue DO Nephrology Fellow Page [phone] [1] Past Medical History: Diagnosis Date Maternal [...] TOOTH EXTRACTION N/A Oral Surgery Tooth Extraction Sharon Tooth from [facility] [4] Family History Problem [...] abnormalities Santos Herrmann MD PhD Division of [facility] Medicine [phone] [1] azithromycin, 500 mg, Intravenous, Once in [...] Low Risk (05/28/2024) Received from [facility] Overall Financial Resource Strain (CARDIA) Difficulty of Paying Living Expenses: Not hard at all Food Insecurity: No Food Insecurity (05/28/2024) Received from [facility] Hunger Vital Sign Within the past 12 months, you worried that your food would run out before you got the money to buymore.: Never true Within the past 12 months, the food you bought just didn't last and you didn't have money to get more.: Never true Transportation Needs: No Transportation Needs (05/28/2024) Received from [facility] PRAPARE - Transportation In the past 12 months, has lack of transportation kept you from medical appointments or from getting medications?: No In the past 12 months, has lack of transportation kept you from meetings, work, or from getting things needed for daily living?: No Physical Activity: Sufficiently Active (05/28/2024) Received from [facility] Exercise Vital Sign On average, how many days per week do you engage in moderate to strenuous exercise (like a brisk walk)?: 5 days On average, how many minutes do you engage in exercise at this level?: 40 min Stress: Stress Concern Present (05/27/2024) Received from [facility] of Occupational Health - Occupational Stress Questionnaire Feeling of Stress : To some extent Social Connections: Not At Risk (05/28/2024) Received from [facility] Family and Community Support If for any reason you need help with day-to-day activities such as bathing, preparing meals, shopping, managing finances, etc., do you get the help you need?: I don't need any help How often do you feel lonely or isolated from those around you?: Sometimes Intimate Partner Violence: Not At Risk (08/19/2024) Received from [facility] Abuse Screen Feels Unsafe at Home or Work/School: no Feels Threatened by Someone: no Does Anyone Try to Keep You From Having Contact with Others or Doing Things Outside Your Home?: no Physical Signs of Abuse Present: no Housing Stability: Not At Risk (08/20/2024) Received from [facility] Housing Stability Current Living Arrangements: home Potentially [...] and consequences of such a bleed, including terminal gauger neurodevelopmental delay. I outlined the plans for [...] difficulties, hyperbilirubinemia, apnea of prematurity, anemia of prematurity,sepsis, PDA, and iatrogenic complications from a NICU [...] Date SECTION, LOW TRANSVERSE N/A section from [facility] DILATION AND CURETTAGE OF UTERUS N/A Dilation and curettage from [facility] WISDOM TOOTH EXTRACTION N/A Oral Surgery Tooth Extraction Sharon Tooth from [facility] [3] No current facility-administered medications on file [...] Do not crush,chew, or split. Prenat MV-Min w/Ff-Xcjigo-RPY ( COMPLETE PO) promethazine (Phenergan) 12.5 MG [...] (Include Timeframe): PT will report pain >5, MITCEHLL, LOF or increased SOB this PM shift [...] with prior who initially presented to the [facility] with chief complaint of dyspnea and chest [...] 10 mEq, 2 times daily Prenat MV-Min w/Up-Pfyxhd-OQE ( COMPLETE PO) thiamine (VITAMIN B-1) 100 [...] y.o. female who initially presented to the [facility] todaywith chief complaint of -related chest pain, [...] in her dyspnea Please page the on-call paper sales manager with any further questions. I spent 45 minutes performing the following components of the encounter (on the day of the encounter): reviewing History, examining the patient, reviewing imaging and/or labs, Independently interpreting echocardiogram, ECG and/or other imaging results, counseling the patient and family/caregiver, communicating with other health acute care nurse, care coordination, and entering clinical information in the EHR. Greater than 50% of the time spent on the encounter was face to face providing direct patient care, counseling for the patient/caregiver, and care coordination. Ania Mccabe DO PGY-4 Injector Assembler 10/18/24 4:22 AM [1] Past Medical History: [...] OF UTERUS N/A Dilation and curettage from [facility] WISDOM TOOTH EXTRACTION N/A Oral Surgery Tooth Extraction Sharon Tooth from [facility] Cosigned by Noel Osman MD at 10/18/2024 12:41 PM EDT Associated attestation - Noel Omsan MD - 10/18/2024 12:41 PM EDT I [...] as well. She currently takes daily PO [id number] and PO magnesium 1600mg in addition to [...] 10 mEq, 2 times daily Prenat MV-Min w/Iy-Ehzkef-CPP ( COMPLETE PO) thiamine (VITAMIN B-1) 100 [...] Nya Long MD Internal Medicine PGY-2 Pager: [phone] [1] Allergies Allergen Reactions Bismuth Subsalicylate Other [...] Nieto MD - 10/17/2024 5:05 PM EDT [facility] OBST[facility] OBSTETRIC EMERGENCY HISTORY & PHYSICAL Patient Name: Whitney Presley : 1990 CHIEF CONCERN: Non-reactive NST, SOA PRIMARY OB: Boby Marin MD Subjective Subjective HPI: Whitney Presley is a 34 y.o. at 33w4d (12/01/2024) who presents with shortness of breath and chest pain that started 2 hours ago. States that she went to see [facility] today and she had an US and failed her BPP and had a non- reactive NST. She also has a complicated past medical history duringthis in which she follows with [facility], cardiology, and nephrology. is complicated by [...] 10 mEq, 2 times daily Prenat MV-Min w/Jr-Hnipnw-YDB ( COMPLETE PO) thiamine (VITAMIN B-1) 100 [...] and management. Please contact first-call provider on [employer] Secure Chat for questions or concerns. For emergencies [place] [phone]. Jasen Li DO Family Medicine, PGY-1 [facility] Chinyere Cordova MD Obstetrics and Gynecology, PGY-3 [...] TOOTH EXTRACTION N/A Oral Surgery Tooth Extraction Sharon Tooth from [facility] [3] Social History Tobacco [...] Gynecology [address], [address] [place] [address] Nneka Gipson MD [address] [place] [address] 12/25/2024 1:00 PM EST Office Visit [facility] Nephrology, Bone & Mineral Metabolism [address] [facility], [address] [place] [address] documented as of this encounter [...] Detected(AA) Not Detected 10/21/2024 11:30 AM EDT [facility] Comment:Previously prelim ve rified as Not Detected on 10/20/2024 at 1221 EDT. Herpes Simplex Virus 2 (HSV-2) PCR Result Not Detected Not Detected 10/21/2024 11:30 AM EDT [facility] Serum Venous blood specimen / Unknown 10/19/2024 9:28 PM EDT 10/19/2024 11:58 PM EDT Narrative [facility] - 10/21/2024 11:30 AM EDT This PCR assay was developed and its performance characteristics determined by [facility] as appropriate for clinical purposes. This assay has not been cleared or approved by the FDA, but is performed in a CLIA regulated laboratory that is qualified to perform high-complexity testing. This PCR assay was developed and its performance characteristics determined by [facility] as appropriate for clinical purposes. This assay has not been cleared or approved by the FDA, but is performed in a CLIA regulated laboratory that is qualified to perform high-complexity testing. This PCR assay was developed and its performance characteristics determined by [facility] as appropriate for clinical purposes. This assay has not been cleared or approved by the FDA, but is performed in a CLIA regulated laboratory that is qualified to perform high-complexity testing. Hilton Montelongo MD LAB MICROBIOLOGY - GENERAL OR DERABLES Final Result [facility] [address] [place] [address] * Brooke Mejias Virus (EBV) Quantitative PCR (10/19/2024 9:28 PM EDT) Brooke Mejias Virus, Blood, Quant DNA Interpretation Not Detected Not Detected 10/23/2024 12:[address] [facility] Blood Venous blood specimen / Unknown Venipuncture / Unknown 10/19/2024 9:28 PM EDT 10/19/2024 11:58 PM EDT Narrative [facility] - 10/23/2024 12:34 PM EDT [...] developed and it's performance characteristics determined by [facility] as appropriate for clinical purposes. [...] developed and it's performance characteristics determined by [facility] as appropriate for clinical purposes. This assay has not been cleared or approved by the FDA, but is performed in a CLIA regulated laboratory that is qualified to perform high-complexity testing. Hilton Montelongo MD LAB BLOOD ORDERABLES Final Re sult Performing Organization Address [facility] Co de Phone Number [facility] [address] [place] [address] * Cytomegalovirus (CMV) Quantitative PCR (10/19/2024 9:28 PM EDT) [facility] Cytomegalovirus (CMV) Quantitative Interpretation Not Detected Not Detected 10/21/2024 12:44 PM EDT [facility] Blood Venous blood specimen / Unknown Venipuncture / Unknown 10/19/2024 9:28 PM EDT 10/19/2024 11:58 PM EDT Narrative [facility] - 10/21/2024 12:44 PM EDT The [employer] M2000 CMV test is a Real Time [...] assay is FDA approved for clinical use. us Hilton Montelongo MD LAB BLOOD ORDERABLES Final Re sult Performing Organization Address [facility] [place] [address] * Phosphorus, Plasma (10/19/2024 9:28 PM EDT) [facility] Phosphorus, Plasma 2.5 2.5 - 4.5 mg/dL 10/19/2024 10:07 PM EDT [facility] Blood Venous blood specimen / Unknown Venipuncture / Unknown 10/19/2024 9:28 PM EDT 10/19/2024 9:38 PM EDT us Santos Herrmann MD LAB BLOOD ORDERABLES Final Resu lt Performing Organization Address [facility]/ZIP Co de Phone Number [facility] [address] [place] [address] * (ABNORMAL) Magnesium (10/19/2024 9:28 PM EDT) Magnesium, Plasma 1.7(L) 1.9 - 2.4 mg/dL 10/19/2024 10:07 PM EDT [facility] Blood Venous blood specimen / Unknown Venipuncture / Unknown 10/19/2024 9:28 PM EDT 10/19/2024 9:38 PM EDT us Santos Herrmann MD LAB BLOOD ORDERABLES Final Resu lt [facility] [address] [place] [address] * (ABNORMAL) Basic metabolic panel (10/19/2024 9:28 PM EDT) Glucose, Plasma 78 74 - 99 mg/dL 10/19/2024 10:07 PM EDT [facility] BUN, Plasma 4(L) 7 - 21 mg/dL 10/19/2024 10:07 PM EDT [facility] Creatinine, Plasma 0.61 0.60 - 1.10 mg/dL 10/19/2024 10:07 PM EDT [facility] BUN/Creatinine Ratio 7 10/19/2024 10:07 PM EDT [facility] Sodium, Plasma 137 136 - 145 mmol/L 10/19/2024 10:07 PM EDT [facility] Potassium, Plasma 4.3 3.6 - 4.9 mmol/L 10/19/2024 10:07 PM EDT [facility] Chloride, Plasma 108(H) 97 - 107 mmol/L 10/19/2024 10:07 PM EDT [facility] CO2, Plasma 20(L) 22 - 29 mmol/L 10/19/2024 10:07 PM EDT [facility] Anion Gap 9 6 - 16 mmol/L 10/19/2024 10:07 PM EDT [facility] Total Calcium, Plasma 7.8(L) 8.9 - 10.2 mg/dL 10/19/2024 10:07 PM EDT [facility] eGFRcr 121.2 mL/min/1.7 3m*2 10/19/2024 10:07 PM EDT [facility] Comment:Reported eGFRcr in m L/min/1.73m2 is based the CKD-EPI 2020 equation that does not use a race coefficient. Blood Venous blood specimen / Unknown Venipuncture / Unknown 10/19/2024 9:28 PM EDT 10/19/2024 9:38 PM EDT Santos Herrmann MD LAB BLOOD ORDERABLES Final Resu lt Performing Organization Address [facility] Co de Phone Number [facility] [address] [place] [address] * ECG Adult (10/19/2024 6:45 PM EDT) EKG DIAGNOSIS CLASS Normal MUSE ECG Ventricular Rate 82 BPM MUSE ECG Atrial Rate 82 BPM MUSE ECG DC Interval 138 ms MUSE ECG QRSD Interval 80 ms MUSE ECG QT Interval 360 ms MUSE ECG QTC Interval 420 ms MUSE ECG P [place] 46 degrees MUSE ECG R [place] 29 degrees MUSE ECG T Wave [place] 36 degrees MUSE ECG Diagnosis Normal sinus rhythm MUSE ECG Diagnosis Normal ECG MUSE ECG Diagnosis MUSE ECG Diagnosis Confirmed by Noel Osman ([id number]) on 10/20/2024 12:15:29 PM MUSE ECG 10/19/2024 6:45 PM EDT 10/20/2024 12:15 PM EDT Hilton Montelongo MD ECG ORDERABLES Final Result Performing Organization Address [facility] Co de Phone Number MUSE ECG * (ABNORMAL) Hepatic function panel (10/19/2024 5:12 PM EDT) Direct Bilirubin, Plasma <0.2 <=0.3 mg/dL 10/19/2024 7:32 PM EDT [facility] Alkaline Phosphatase, Plasma 68 35 - 104 U/L 10/19/2024 7:32 PM EDT [facility] Total Bilirubin, Plasma 0.3 0.2 - 1.1 mg/dL 10/19/2024 7:32 PM EDT [facility] Albumin, Plasma 2.5(L) 3.5 - 5.2 g/dL 10/19/2024 7:32 PM EDT [facility] Total Protein 5.2(L) 6.3 - 7.9 g/dL 10/19/2024 7:32 PM EDT [facility] ALT, Plasma 48(H) 10 - 35 U/L 10/19/2024 7:32 PM EDT [facility] AST, Plasma 35 10 - 35 U/L 10/19/2024 7:32 PM EDT [facility] Blood Venous blood specimen / Unknown Venipuncture / Unknown 10/19/2024 5:12 PM EDT 10/19/2024 5:30 PM EDT us Hilton Montelongo MD LAB BLOOD ORDERABLES Final Re sult Performing Organization Address City/[facility]/ZIP Co de Phone Number [facility] [address] [place] [address] * (ABNORMAL) Phosphorus, Plasma (10/19/2024 5:12 PM EDT) Phosphorus, Plasma 2.2(L) 2.5 - 4.5 mg/dL 10/19/2024 6:02 PM EDT [facility] Blood Venous blood specimen / Unknown Venipuncture / Unknown 10/19/2024 5:12 PM EDT 10/19/2024 5:30 PM EDT us Santos Herrmann MD LAB BLOOD ORDERABLES Final Resu lt [facility] [address] [place] [address] * (ABNORMAL) Magnesium (10/19/2024 5:12 PM EDT) Magnesium, Plasma 1.5(L) 1.9 - 2.4 mg/dL 10/19/2024 6:02 PM EDT [facility] Blood Venous blood specimen / Unknown Venipuncture / Unknown 10/19/2024 5:12 PM EDT 10/19/2024 5:30 PM EDT us Santos Herrmann MD LAB BLOOD ORDERABLES Final Resu lt [facility] [address] [place] [address] * (ABNORMAL) Basic metabolic panel (10/19/2024 5:12 PM EDT) Glucose, Plasma 121(H) 74 - 99 mg/dL 10/19/2024 6:02 PM EDT [facility] BUN, Plasma 4(L) 7 - 21 mg/dL 10/19/2024 6:02 PM EDT [facility] Creatinine, Plasma 0.58(L) 0.60 - 1.10 mg/dL 10/19/2024 6:02 PM EDT [facility] BUN/Creatinine Ratio 7 10/19/2024 6:02 PM EDT [facility] Sodium, Plasma 137 136 - 145 mmol/L 10/19/2024 6:02 PM EDT [facility] Potassium, Plasma 4.0 3.6 - 4.9 mmol/L 10/19/2024 6:02 PM EDT [facility] Chloride, Plasma 105 97 - 107 mmol/L 10/19/2024 6:02 PM EDT [facility] CO2, Plasma 20(L) 22 - 29 mmol/L 10/19/2024 6:02 PM EDT [facility] Anion Gap 12 6 - 16 mmol/L 10/19/2024 6:02 PM EDT [facility] Total Calcium, Plasma 8.0(L) 8.9 - 10.2 mg/dL 10/19/2024 6:02 PM EDT [facility] eGFRcr 122.7 mL/min/1.7 3m*2 10/19/2024 6:02 PM EDT [facility] Comment:Reported eGFRcr in m L/min/1.73m2 is based the CKD-EPI 2020 equation that does not use a race coefficient. Blood Venous blood specimen / Unknown Venipuncture / Unknown 10/19/2024 5:12 PM EDT 10/19/2024 5:30 PM EDT us Santos Herrmann MD LAB BLOOD ORDERABLES Final Resu lt [facility] [address] [place] [address] * US Abdomen Focused Region Liver, GB, [...] Urine <6 mg/dL 10/19/2024 3:39 PM EDT [facility] Total Protein per day 10/19/2024 3:39 PM EDT [facility] Comment:Unable to calculate, at least one value is above or below the detection limit. Hours Of Collection 24 HRS 10/19/2024 3:39 PM EDT [facility] Urine, Volume 2,750 mL 10/19/2024 3:39 PM EDT [facility] Urine Urine specimen obtained by clean catch procedure / Unknown Non-blood Collection / Unknown 10/19/2024 2:43 PM EDT 10/19/2024 2:52 PM EDT Narrative [facility] - 10/19/2024 3:39 PM EDT Reference Range <80 mg/day if bed rest <150 mg/day if ambulatory us Santos Herrmann MD LAB URINE ORDERABLES Final Resu lt Performing Organization Address [facility] Co de Phone Number [facility] [address] [place] [address] * Potassium, Urine, 24 Hour (10/19/2024 2:43 PM EDT) Potassium, Urine 20 mmol/L 10/19/2024 3:39 PM EDT [facility] Hours Of Collection 24 HRS 10/19/2024 3:39 PM EDT [facility] Urine, Volume 2,750 mL 10/19/2024 3:39 PM EDT [facility] Potassium per day, Urine 55 18 - 58 mmol/d 10/19/2024 3:39 PM EDT [facility] Urine Urine specimen obtained by clean catch procedure / Unknown Non-blood Collection / Unknown 10/19/2024 2:43 PM EDT 10/19/2024 2:52 PM EDT us Santos Herrmann MD LAB URINE ORDERABLES Final Resu lt Performing Organization Address [facility] Co de Phone Number [facility] [address] [place] [address] * Sodium, 24 Hour, Urine (10/19/2024 2:43 PM EDT) Sodium, Urine 45 mmol/L 10/19/2024 3:39 PM EDT [facility] Sodium per day 124 48 - 168 mmol/d 10/19/2024 3:39 PM EDT [facility] Hours Of Collection 24 HRS 10/19/2024 3:39 PM EDT [facility] Urine, Volume 2,750 mL 10/19/2024 3:39 PM EDT [facility] Urine Urine specimen obtained by clean catch procedure / Unknown Non-blood Collection / Unknown 10/19/2024 2:43 PM EDT 10/19/2024 2:52 PM EDT Santos Herrmann MD LAB URINE ORDERABLES Final Resu lt Performing Organization Address [facility]/ZIP Co de Phone Number [facility] [address] [place] [address] * Phosphorus, Urine, 24 Hour (10/19/2024 2:43 PM EDT) Phosphorus, Urine 29.1 mg/dL 10/19/2024 3:24 PM EDT [facility] Phosphorus per day, Urine 0.8 0.4 - 1.3 g/d 10/19/2024 3:24 PM EDT [facility] Hours Of Collection 24 HRS 10/19/2024 3:24 PM EDT [facility] Urine, Volume 2,750 mL 10/19/2024 3:24 PM EDT [facility] Urine Urine specimen obtained by clean catch procedure / Unknown Non-blood Collection / Unknown 10/19/2024 2:43 PM EDT 10/19/2024 2:53 PM EDT us Santos Herrmann MD LAB URINE ORDERABLES Final Resu lt Performing Organization Address [facility]/ZIP Co de Phone Number [facility] [address] [place] [address] * (ABNORMAL) Magnesium, urine, 24 hour (10/19/2024 2:43 PM EDT) Magnesium, Random Urine 24.3 mg/dL 10/19/2024 3:24 PM EDT [facility] Magnesium per day 668.3(H) 70.0 - 120.0 mg/d 10/19/2024 3:24 PM EDT [facility] Hours Of Collection 24 HRS 10/19/2024 3:24 PM EDT [facility] Urine, Volume 2,750 mL 10/19/2024 3:24 PM EDT [facility] Urine Urine specimen obtained by clean catch procedure / Unknown Non-blood Collection / Unknown 10/19/2024 2:43 PM EDT 10/19/2024 2:53 PM EDT us Santos Herrmann MD LAB URINE ORDERABLES Final Resu lt Performing Organization Address City/[facility]/ZIP Co de Phone Number [facility] [address] [place] [address] * Creatinine, 24 Hour Urine (10/19/2024 2:43 PM EDT) Creatinine, Urine 30 mg/dL 10/19/2024 3:39 PM EDT [facility] Creatinine per day, Urine 825 500 - 1,600 mg/d 10/19/2024 3:39 PM EDT [facility] Hours Of Collection 24 HRS 10/19/2024 3:39 PM EDT [facility] Urine, Volume 2,750 mL 10/19/2024 3:39 PM EDT [facility] Urine Urine specimen obtained by clean catch procedure / Unknown Non-blood Collection / Unknown 10/19/2024 2:43 PM EDT 10/19/2024 2:52 PM EDT us Santos Herrmann MD LAB URINE ORDERABLES Final Resu lt [facility] [address] [place] [address] * Chloride, 24 Hour Urine (10/19/2024 2:43 PM EDT) Chloride, Urine <20 mmol/L 3:39 PM EDT [facility] Hours Of Collection 24 HRS 10/19/2024 3:39 PM EDT [facility] Urine, Volume 2,750 mL 10/19/2024 3:39 PM EDT [facility] Chloride per day, Urine 10/19/2024 3:39 PM EDT [facility] Comment:Unable to calculate, at least one value is above or below the detection limit. Urine Urine specimen obtained by clean catch procedure / Unknown Non-blood Collection / Unknown 10/19/2024 2:43 PM EDT 10/19/2024 2:52 PM EDT Santos Herrmann MD LAB URINE ORDERABLES Final Resu lt Performing Organization Address [facility] Co de Phone Number [facility] [address] [place] [address] * Calcium, 24 Hour Urine (10/19/2024 2:43 PM EDT) Calcium, Urine 3.1 mg/dL 10/19/2024 3:24 PM EDT [facility] Calcium per day, Urine 85 mg/day 10/19/2024 3:24 PM EDT [facility] Hours Of Collection 24 HRS 10/19/2024 3:24 PM EDT [facility] Urine, Volume 2,750 mL 10/19/2024 3:24 PM EDT [facility] Urine Urine specimen obtained by clean catch procedure / Unknown Non-blood Collection / Unknown 10/19/2024 2:43 PM EDT 10/19/2024 2:53 PM EDT Narrative [facility] - 10/19/2024 3:24 PM EDT Free Ca diet 5 - 40 mg/d Low to average Ca diet 50 - 150 mg/d Average Ca diet 100 - 300 mg/d Santos Herrmann MD LAB URINE ORDERABLES Final Resu lt Performing Organization Address [facility] Co de Phone Number [facility] [address] [place] [address] * Albumin-creatinine ratio, 24 hr urine (10/19/2024 2:43 PM EDT) Microalbumin, Urine <1.2 <1.9 mg/dL 10/19/2024 3:39 PM EDT [facility] Albumin per day 3:39 PM EDT [facility] Comment:Unable to calculate, at least one value is above or below the detection limit. Microalbumin Excretion Rate 10/19/2024 3:39 PM EDT [facility] Comment:Unable to calculate, at least one value is above or below the detection limit. Creatinine, Urine 30 mg/dL 025 3:39 PM EDT [facility] Creatinine, 24H Ur 825 500 - 1,600 mg/d 10/19/2024 3:39 PM EDT [facility] Comment:Unable to calculate, at least one value is above or below the detection limit. Albumin/Creatinin e Ratio 10/19/2024 3:39 PM EDT [facility] Comment:Unable to calculate, at least one value is above or below the detection limit. Hours Of Collection 24 HRS 10/19/2024 3:39 PM EDT [facility] Urine, Volume 2,750 mL 10/19/2024 3:39 PM EDT [facility] Urine Urine specimen obtained by clean catch procedure / Unknown Non-blood Collection / Unknown 10/19/2024 2:43 PM EDT 10/19/2024 2:52 PM EDT us Santos Herrmann MD LAB URINE ORDERABLES Final Resu lt [facility] [address] [place] [address] * (ABNORMAL) Aldosterone, urine, 24 hour (10/19/2024 2:42 PM EDT) Creatinine, Urine - per 24h 908 700 - 1600 mg/d 10/27/2024 10:59 PM EDT [facility] ([facility]) Creatinine, Urine - per volume 33 mg/dL 10/27/2024 10:59 PM EDT [facility] ([facility]) Total Volume 2750 mL 10/27/2024 10:59 PM EDT [facility] ([facility]) Hours Collected 24 hr 10/27/2024 10:59 PM EDT [facility] ([facility]) ALDOSTERONE,UR INE RESULT 310.6(H) 1.2 - 28.1 ug/d 10/27/2024 10:59 PM EDT [facility] ([facility]) Urine Urine specimen obtained by clean catch procedure / Unknown Non-blood Collection / Unknown 10/19/2024 2:42 PM EDT 10/19/2024 4:27 PM EDT Narrative [facility] ([facility]) - 10/27/2024 10:59 PM EDT Per 24h calculations are provided to aid interpretation for collections with a duration of 24 hours and an average daily urine volume. For specimens with notable deviations in collection time or volume, ratios of analytes to a corresponding urine creatinine concentration may assist in result interpretation. Performed By: [employer] [address] [place] [id number] [employer] Operator: Brandon Bell MD, PhD CLIA Number: [id number] us Santos Herrmann MD LAB URINE ORDERABLES Final Resu lt Performing Organization Address City/[facility]/ZIP Co de Phone Number [facility] ([facility]) [address] [place] [address] * Magnesium (10/19/2024 7:03 AM EDT) Magnesium, Plasma 2.1 1.9 - 2.4 mg/dL 10/19/2024 7:54 AM EDT [facility] Blood Venous blood specimen / Unknown Venipuncture / Unknown 10/19/2024 7:03 AM EDT 10/19/2024 7:06 AM EDT us Hilton Montelongo MD LAB BLOOD ORDERABLES Final Re sult [facility] [address] [place] [address] * Phosphorus (10/19/2024 7:03 AM EDT) Phosphorus, Plasma 3.3 2.5 - 4.5 mg/dL 10/19/2024 7:54 AM EDT [facility] Blood Venous blood specimen / Unknown Venipuncture / Unknown 10/19/2024 7:03 AM EDT 10/19/2024 7:06 AM EDT us Hilton Montelongo MD LAB BLOOD ORDERABLES Final Re sult Performing Organization Address [facility]/ZIP Co de Phone Number [facility] [address] [place] [address] * Phosphorus, Plasma (10/19/2024 7:03 AM EDT) Phosphorus, Plasma 3.3 2.5 - 4.5 mg/dL 10/19/2024 7:32 AM EDT [facility] Blood Venous blood specimen / Unknown Venipuncture / Unknown 10/19/2024 7:03 AM EDT 10/19/2024 7:06 AM EDT us Hilton Montelongo MD LAB BLOOD ORDERABLES Final Re sult Performing Organization Address [facility] Co de Phone Number [facility] [address] [place] [address] * Magnesium (10/19/2024 7:03 AM EDT) Magnesium, Plasma 2.1 1.9 - 2.4 mg/dL 10/19/2024 7:32 AM EDT [facility] Blood Venous blood specimen / Unknown Venipuncture / Unknown 10/19/2024 7:03 AM EDT 10/19/2024 7:06 AM EDT us Hilton Montelongo MD LAB BLOOD ORDERABLES Final Re sult Performing Organization Address City/[facility]/ZIP Co de Phone Number [facility] [address] [place] [address] * (ABNORMAL) Basic metabolic panel (10/19/2024 7:03 AM EDT) Glucose, Plasma 88 74 - 99 mg/dL 10/19/2024 7:36 AM EDT [facility] BUN, Plasma 6(L) 7 - 21 mg/dL 10/19/2024 7:36 AM EDT [facility] Creatinine, Plasma 0.60 0.60 - 1.10 mg/dL 10/19/2024 7:36 AM EDT [facility] BUN/Creatinine Ratio 10 10/19/2024 7:36 AM EDT [facility] Sodium, Plasma 139 136 - 145 mmol/L 10/19/2024 7:36 AM EDT [facility] Potassium, Plasma 3.5(L) 3.6 - 4.9 mmol/L 10/19/2024 7:36 AM EDT [facility] Chloride, Plasma 105 97 - 107 mmol/L 10/19/2024 7:36 AM EDT [facility] CO2, Plasma 24 22 - 29 mmol/L 10/19/2024 7:36 AM EDT [facility] Anion Gap 10 6 - 16 mmol/L 10/19/2024 7:36 AM EDT [facility] Total Calcium, Plasma 8.3(L) 8.9 - 10.2 mg/dL 10/19/2024 7:36 AM EDT [facility] eGFRcr 121.7 mL/min/1.7 3m*2 10/19/2024 7:36 AM EDT [facility] Comment:Reported eGFRcr in m L/min/1.73m2 is based the CKD-EPI 2020 equation that does not use a race coefficient. Blood Venous blood specimen / Unknown Venipuncture / Unknown 10/19/2024 7:03 AM EDT 10/19/2024 7:06 AM EDT us Hilton Montelongo MD LAB BLOOD ORDERABLES Final Re sult [facility] [address] [place] [address] * Phosphorus, Plasma (10/18/2024 10:56 PM EDT) Phosphorus, Plasma 3.3 2.5 - 4.5 mg/dL 10/18/2024 11:57 PM EDT [facility] Blood Venous blood specimen / Unknown Venipuncture / Unknown 10/18/2024 10:56 PM EDT 10/18/2024 11:07 PM EDT us Hilton Montelongo MD LAB BLOOD ORDERABLES Final Re sult Performing Organization Address City/[facility]/ZIP Co de Phone Number [facility] [address] [place] [address] * (ABNORMAL) Magnesium (10/18/2024 10:56 PM EDT) Magnesium, Plasma 3.1(H) 1.9 - 2.4 mg/dL 10/18/2024 11:57 PM EDT [facility] Blood Venous blood specimen / Unknown Venipuncture / Unknown 10/18/2024 10:56 PM EDT 10/18/2024 11:07 PM EDT us Hilton Montelongo MD LAB BLOOD ORDERABLES Final Re sult Performing Organization Address [facility] Co de Phone Number [facility] [address] [place] [address] * (ABNORMAL) Basic metabolic panel (10/18/2024 10:56 PM EDT) Glucose, Plasma 104(H) 74 - 99 mg/dL 10/18/2024 11:57 PM EDT [facility] BUN, Plasma 7 7 - 21 mg/dL 10/18/2024 11:57 PM EDT [facility] Creatinine, Plasma 0.63 0.60 - 1.10 mg/dL 10/18/2024 11:57 PM EDT [facility] BUN/Creatinine Ratio 11 10/18/2024 11:57 PM EDT [facility] Sodium, Plasma 136 136 - 145 mmol/L 10/18/2024 11:57 PM EDT [facility] Potassium, Plasma 3.5(L) 3.6 - 4.9 mmol/L 10/18/2024 11:57 PM EDT [facility] Chloride, Plasma 100 97 - 107 mmol/L 10/18/2024 11:57 PM EDT [facility] CO2, Plasma 26 22 - 29 mmol/L 10/18/2024 11:57 PM EDT [facility] Anion Gap 10 6 - 16 mmol/L 10/18/2024 11:57 PM EDT [facility] Total Calcium, Plasma 7.8(L) 8.9 - 10.2 mg/dL 10/18/2024 11:57 PM EDT [facility] eGFRcr 120.3 mL/min/1.7 3m*2 10/18/2024 11:57 PM EDT [facility] Comment:Reported eGFRcr in m L/min/1.73m2 is based the CKD-EPI 2020 equation that does not use a race coefficient. Blood Venous blood specimen / Unknown Venipuncture / Unknown 10/18/2024 10:56 PM EDT 10/18/2024 11:07 PM EDT Hilton Montelongo MD LAB BLOOD ORDERABLES Final Re sult Performing Organization Address [facility]/ZIP Co de Phone Number [facility] [address] [place] [address] * (ABNORMAL) Aldosterone (10/18/2024 10:56 PM EDT) Aldosterone 115.0(H) 4.0 - 31.0 ng/dL 10/21/2024 8:[address] [facility] Blood Venous blood specimen / Unknown Venipuncture / Unknown 10/18/2024 10:56 PM EDT 10/18/2024 11:29 PM EDT Santos Herrmann MD LAB BLOOD ORDERABLES Final Resu lt Performing Organization Address City/[facility]/ZIP Co de Phone Number [facility] [address] [place] [address] * (ABNORMAL) Plasma Renin Activity (LC/MS/MS) (10/18/2024 10:56 PM EDT) PRA RESULT 30.67(H) 0.25 - 5.82 ng/mL/h 10/24/2024 7:47 PM EDT [facility] ([facility] ([facility]) Comment: This test was developed and its analytical performance characteristics have been determined by [facility]. It has not been cleared or approved by the FDA. This assay has been validated pursuant to the CLIA regulations and is used for clinical purposes. Blood Venous blood specimen / Unknown Venipuncture / Unknown 10/18/2024 10:56 PM EDT 10/18/2024 11:08 PM EDT Narrative [facility] ([facility] ([facility]) - 10/24/2024 7:47 PM EDT Performing Organization Information: Site ID: [email or web address] Name: [email or web address] [place] Address: [address] [place] [id number] Director: Malik Islas MD, PhD Santos Herrmann MD LAB BLOOD ORDERABLES Final Resu lt Performing Organization Address City/[facility]/ZIP Co de Phone Number [facility] ([facility] ([facility]) [address] [address] * (ABNORMAL) Phosphorus, Plasma (10/18/2024 6:30 PM EDT) Phosphorus, Plasma 1.8(L) 2.5 - 4.5 mg/dL 10/18/2024 7:14 PM EDT [facility] Blood Venous blood specimen / Unknown Venipuncture / Unknown 10/18/2024 6:30 PM EDT 10/18/2024 6:42 PM EDT Hilton Montelongo MD LAB BLOOD ORDERABLES Final Re sult [facility] [address] [place] [address] * (ABNORMAL) Magnesium (10/18/2024 6:30 PM EDT) Magnesium, Plasma 2.5(H) 1.9 - 2.4 mg/dL 10/18/2024 7:14 PM EDT [facility] Blood Venous blood specimen / Unknown Venipuncture / Unknown 10/18/2024 6:30 PM EDT 10/18/2024 6:42 PM EDT Hilton Montelongo MD LAB BLOOD ORDERABLES Final Re sult [facility] [address] [place] [address] * (ABNORMAL) Basic metabolic panel (10/18/2024 6:30 PM EDT) Glucose, Plasma 100(H) 74 - 99 mg/dL 10/18/2024 7:14 PM EDT [facility] BUN, Plasma 7 7 - 21 mg/dL 10/18/2024 7:14 PM EDT [facility] Creatinine, Plasma 0.65 0.60 - 1.10 mg/dL 10/18/2024 7:14 PM EDT [facility] BUN/Creatinine Ratio 11 10/18/2024 7:14 PM EDT [facility] Sodium, Plasma 137 136 - 145 mmol/L 10/18/2024 7:14 PM EDT [facility] Potassium, Plasma 3.9 3.6 - 4.9 mmol/L 10/18/2024 7:14 PM EDT [facility] Chloride, Plasma 102 97 - 107 mmol/L 10/18/2024 7:14 PM EDT [facility] CO2, Plasma 25 22 - 29 mmol/L 10/18/2024 7:14 PM EDT [facility] Anion Gap 10 6 - 16 mmol/L 10/18/2024 7:14 PM EDT [facility] Total Calcium, Plasma 8.1(L) 8.9 - 10.2 mg/dL 10/18/2024 7:14 PM EDT [facility] eGFRcr 119.4 mL/min/1.7 3m*2 10/18/2024 7:14 PM EDT [facility] Comment:Reported eGFRcr in m L/min/1.73m2 is based the CKD-EPI 2020 equation that does not use a race coefficient. Blood Venous blood specimen / Unknown Venipuncture / Unknown 10/18/2024 6:30 PM EDT 10/18/2024 6:42 PM EDT Hilton Montelongo MD LAB BLOOD ORDERABLES Final Re sult Performing Organization Address City/[facility]/ZIP Co de Phone Number [facility] [address] [place] [address] * Group B Streptococcus by PCR (10/18/2024 1:47 PM EDT) [facility] Group B Streptococcus PCR Result Not Detected Not Detected 10/20/2024 7:26 AM EDT [facility] Swab Rectovaginal / Unknown Non-blood Collection / Unknown 10/18/2024 1:47 PM EDT 10/18/2024 1:59 PM EDT Narrative [facility] - 10/20/2024 7:26 AM EDT [...] OR DERABLES Final Result Performing Organization Address [facility]/ZIP Co de Phone Number [facility] [address] [place] [address] * (ABNORMAL) Phosphorus, Plasma (10/18/2024 1:47 PM EDT) [facility] Phosphorus, Plasma 1.5(L) 2.5 - 4.5 mg/dL 10/18/2024 3:[address] [facility] Blood Venous blood specimen / Unknown Venipuncture / Unknown 10/18/2024 1:47 PM EDT 10/18/2024 2:26 PM EDT Hilton Montelongo MD LAB BLOOD ORDERABLES Final Re sult Performing Organization Address [facility]/ZIP Co de Phone Number [facility] [address] [place] [address] * (ABNORMAL) Magnesium (10/18/2024 1:47 PM EDT) [facility] Magnesium, Plasma 1.7(L) 1.9 - 2.4 mg/dL 10/18/2024 3:05 PM EDT [facility] Blood Venous blood specimen / Unknown Venipuncture / Unknown 10/18/2024 1:47 PM EDT 10/18/2024 2:26 PM EDT us Hilton Monetlongo MD LAB BLOOD ORDERABLES Final Re sult [facility] [address] [place] [address] * (ABNORMAL) Basic metabolic panel (10/18/2024 1:47 PM EDT) Glucose, Plasma 119(H) 74 - 99 mg/dL 10/18/2024 3:05 PM EDT [facility] BUN, Plasma 8 7 - 21 mg/dL 10/18/2024 3:05 PM EDT [facility] Creatinine, Plasma 0.64 0.60 - 1.10 mg/dL 10/18/2024 3:05 PM EDT [facility] BUN/Creatinine Ratio 13 10/18/2024 3:05 PM EDT [facility] Sodium, Plasma 132(L) 136 - 145 mmol/L 10/18/2024 3:05 PM EDT [facility] Potassium, Plasma 3.9 3.6 - 4.9 mmol/L 10/18/2024 3:05 PM EDT [facility] Chloride, Plasma 98 97 - 107 mmol/L 10/18/2024 3:05 PM EDT [facility] CO2, Plasma 23 22 - 29 mmol/L 10/18/2024 3:05 PM EDT [facility] Anion Gap 11 6 - 16 mmol/L 10/18/2024 3:05 PM EDT [facility] Total Calcium, Plasma 8.0(L) 8.9 - 10.2 mg/dL 10/18/2024 3:05 PM EDT [facility] eGFRcr 119.8 mL/min/1.7 3m*2 10/18/2024 3:05 PM EDT [facility] Comment:Reported eGFRcr in m L/min/1.73m2 is based the CKD-EPI 2020 equation that does not use a race coefficient. Blood Venous blood specimen / Unknown Venipuncture / Unknown 10/18/2024 1:47 PM EDT 10/18/2024 2:26 PM EDT us Hilton Montelongo MD LAB BLOOD ORDERABLES Final Re sult Performing Organization Address [facility] Co de Phone Number [facility] [address] [place] [address] * (ABNORMAL) Phosphorus, Plasma (10/18/2024 1:46 PM EDT) Phosphorus, Plasma 1.5(L) 2.5 - 4.5 mg/dL 10/18/2024 3:05 PM EDT [facility] Blood Venous blood specimen / Unknown Venipuncture / Unknown 10/18/2024 1:46 PM EDT 10/18/2024 2:26 PM EDT us Hilton Montelongo MD LAB BLOOD ORDERABLES Final Re sult Performing Organization Address [facility] Co de Phone Number [facility] [address] [place] [address] * (ABNORMAL) Magnesium (10/18/2024 1:46 PM EDT) Magnesium, Plasma 1.7(L) 1.9 - 2.4 mg/dL 10/18/2024 3:05 PM EDT [facility] Blood Venous blood specimen / Unknown Venipuncture / Unknown 10/18/2024 1:46 PM EDT 10/18/2024 2:26 PM EDT us Hilton Montelongo MD LAB BLOOD ORDERABLES Final Re sult Performing Organization Address [facility] de Phone Number [facility] [address] [place] [address] * (ABNORMAL) Basic metabolic panel (10/18/2024 1:46 PM EDT) Glucose, Plasma 121(H) 74 - 99 mg/dL 10/18/2024 3:05 PM EDT [facility] BUN, Plasma 8 7 - 21 mg/dL 10/18/2024 3:05 PM EDT [facility] Creatinine, Plasma 0.65 0.60 - 1.10 mg/dL 10/18/2024 3:05 PM EDT [facility] BUN/Creatinine Ratio 12 10/18/2024 3:05 PM EDT [facility] Sodium, Plasma 134(L) 136 - 145 mmol/L 10/18/2024 3:05 PM EDT [facility] Potassium, Plasma 4.0 3.6 - 4.9 mmol/L 10/18/2024 3:05 PM EDT [facility] Chloride, Plasma 100 97 - 107 mmol/L 10/18/2024 3:05 PM EDT [facility] CO2, Plasma 23 22 - 29 mmol/L 10/18/2024 3:05 PM EDT [facility] Anion Gap 11 6 - 16 mmol/L 10/18/2024 3:05 PM EDT [facility] Total Calcium, Plasma 8.0(L) 8.9 - 10.2 mg/dL 10/18/2024 3:05 PM EDT [facility] eGFRcr 119.4 mL/min/1.7 3m*2 10/18/2024 3:05 PM EDT [facility] Comment:Reported eGFRcr in m L/min/1.73m2 is based the CKD-EPI 2020 equation that does not use a race coefficient. Blood Venous blood specimen / Unknown Venipuncture / Unknown 10/18/2024 1:46 PM EDT 10/18/2024 2:26 PM EDT us Hilton Montelongo MD LAB BLOOD ORDERABLES Final Re sult [facility] [address] [place] [address] * ECHO, ADULT TRANSTHORACIC COMPLETE (10/18/2024 11:40 [...] Root Diam 31 mm RILEY ISCV PA DC(ACCEL) 28.2 mmHg RILEY ISCV LVLs ap2 6.7 [...] is no recent study available for direct fpaj-jg-uhaw comparison. Patient is 33 wks 5 days [...] is no recent study available for direct pfcd-ij-[id number] comparison. us Hilton Montelongo MD CV ECHO PROCEDURES Final Resu lt * POCT glucose meter (10/18/2024 9:42 AM EDT) [facility] POCT Glucose 78 74 - 99 [...] Comment 10/18/2024 9:52 AM EDT [facility] [employer] Finisher ID Tex Harman 025 9:52 AM EDT [facility] Device ID [id number] 10/18/2024 9:52 AM EDT [facility] Specimen Type POC Capillary 10/18/2024 9:52 AM EDT [facility] Blood Capillary blood specimen / Unknown 10/18/2024 9:42 AM EDT 10/18/2024 9:52 AM EDT us Hilton Montelongo MD LAB POINT OF CARE TE ST DOCKED DEVICE UNSOLICITED RESULTS Final Result Performing Organization Address City/[facility]/ZIP Co de Phone Number [facility]ALTH[facility] [address] [place] [address] * Light Green Top (10/18/2024 9:14 AM EDT) [facility] Extra Hold for add-ons 10/18/2024 12:01 PM EDT [facility] Comment:Auto resulted. Blood Venous blood specimen / Unknown 10/18/2024 9:14 AM EDT 10/18/2024 9:27 AM EDT us Hilton Montelongo MD LAB BLOOD ORDERABLES Final Re sult [facility] [address] [place] [address] * Phosphorus, Plasma (10/18/2024 9:14 AM EDT) [facility] Phosphorus, Plasma 3.2 2.5 - 4.5 mg/dL 10/18/2024 10:29 AM EDT [facility] Blood Venous blood specimen / Unknown Venipuncture / Unknown 10/18/2024 9:14 AM EDT 10/18/2024 9:36 AM EDT us Hilton Montelongo MD LAB BLOOD ORDERABLES Final Re sult Performing Organization Address [facility]/ZIP Co de Phone Number [facility] [address] [place] [address] * (ABNORMAL) Magnesium (10/18/2024 9:14 AM EDT) Magnesium, Plasma 1.8(L) 1.9 - 2.4 mg/dL 10/18/2024 10:29 AM EDT [facility] Blood Venous blood specimen / Unknown Venipuncture / Unknown 10/18/2024 9:14 AM EDT 10/18/2024 9:36 AM EDT us Hilton Montelongo MD LAB BLOOD ORDERABLES Final Re sult Performing Organization Address City/[facility]/ZIP Co de Phone Number [facility] [address] [place] [address] * (ABNORMAL) Basic metabolic panel (10/18/2024 9:14 AM EDT) Glucose, Plasma 76 74 - 99 mg/dL 10/18/2024 10:29 AM EDT [facility] BUN, Plasma 9 7 - 21 mg/dL 10/18/2024 10:29 AM EDT [facility] Creatinine, Plasma 0.66 0.60 - 1.10 mg/dL 10/18/2024 10:29 AM EDT [facility] BUN/Creatinine Ratio 14 10/18/2024 10:29 AM EDT [facility] Sodium, Plasma 134(L) 136 - 145 mmol/L 10/18/2024 10:29 AM EDT [facility] Potassium, Plasma 3.2(L) 3.6 - 4.9 mmol/L 10/18/2024 10:29 AM EDT [facility] Chloride, Plasma 94(L) 97 - 107 mmol/L 10/18/2024 10:29 AM EDT [facility] CO2, Plasma 27 22 - 29 mmol/L 10/18/2024 10:29 AM EDT [facility] Anion Gap 13 6 - 16 mmol/L 10/18/2024 10:29 AM EDT [facility] Total Calcium, Plasma 8.2(L) 8.9 - 10.2 mg/dL 10/18/2024 10:29 AM EDT [facility] eGFRcr 119.0 mL/min/1.7 3m*2 10/18/2024 10:29 AM EDT [facility] Comment:Reported eGFRcr in m L/min/1.73m2 is based the CKD-EPI 2020 equation that does not use a race coefficient. Blood Venous blood specimen / Unknown Venipuncture / Unknown 10/18/2024 9:14 AM EDT 10/18/2024 9:36 AM EDT Hilton Montelongo MD LAB BLOOD ORDERABLES Final Re sult [facility] [address] [place] [address] * ECG Adult (10/18/2024 8:54 AM EDT) EKG DIAGNOSIS CLASS Abnormal MUSE ECG Ventricular Rate 95 BPM MUSE ECG Atrial Rate 95 BPM MUSE ECG DC Interval 146 ms MUSE ECG QRSD Interval 80 ms MUSE ECG QT Interval 346 ms MUSE ECG QTC Interval 434 ms MUSE ECG P [place] 53 degrees MUSE ECG R [place] 46 degrees MUSE ECG T Wave [place] 42 degrees MUSE ECG Diagnosis Sinus rhythm with frequent premature ventricular complexes and premature atrial complexes MUSE ECG Diagnosis Nonspecific ST abnormality MUSE ECG Diagnosis Abnormal ECG MUSE ECG Diagnosis MUSE ECG Diagnosis Confirmed by Amish Paz ([id number]) on 10/18/2024 1:47:52 PM MUSE ECG 10/18/2024 8:54 AM EDT 10/18/2024 1:47 PM EDT Hilton Montelongo MD ECG ORDERABLES Final Result MUSE ECG * OB US Biophysical Profile wo Non Stress Testing (10/18/2024 8:50 AM EDT) Anatomical Region Laterality Modality Body Ultrasound 10/18/2024 8:28 AM EDT Impressions 10/18/2024 9:40 AM EDT The OB Ultrasound you requested has been resulted. Please navigate to the Imaging tab in [employer] for review. This message has been generated by the interface. Narrative Procedure Note Nneka Gipson MD - 10/18/2024 IMPRESSION: The OB Ultrasound you requested has been resulted. Please navigate to theImaging tab in [employer] for review. This message has been generated by theinterface. us Hilton Montelongo MD IMG OB US PROCEDURES Final Re sult * Protein, Random, Urine with Creatinine (10/18/2024 4:03 AM EDT) Protein, Urine 10 mg/dL 10/18/2024 4:44 AM EDT [facility] Creatinine, Urine 62 mg/dL 10/18/2024 4:44 AM EDT [facility] Protein/Creatin ine Ratio 0.2 mg/mg Creat 10/18/2024 4:44 AM EDT [facility] Urine Urine specimen obtained by clean catch procedure / Unknown Non-blood Collection / Unknown 10/18/2024 4:03 AM EDT 10/18/2024 4:11 AM EDT us Hilton Montelongo MD LAB URINE ORDERABLES Final Re sult [facility] [address] [place] [address] * (ABNORMAL) Ionized calcium, whole blood (10/18/2024 3:38 AM EDT) Ionized Calcium, Whole Blood 4.3(L) 4.6 - 5.1 mg/dL LAB HEMATOLOGY METHOD 10/18/2024 5:42 AM EDT [facility] Blood Venous blood specimen / Unknown Venipuncture / Unknown 10/18/2024 3:38 AM EDT 10/18/2024 3:48 AM EDT us Hilton Montelongo MD LAB BLOOD ORDERABLES Final Re sult [facility] [address] [place] [address] * (ABNORMAL) Blood gas panel, venous (10/18/2024 3:38 AM EDT) pH, Venous 7.47(H) 7.32 - 7.43 LAB HEMATOLOGY METHOD 10/18/2024 3:50 AM EDT [facility] pCO2, Venous 44 37 - 52 mmHg LAB HEMATOLOGY METHOD 10/18/2024 3:50 AM EDT [facility] pO2, Venous 115(H) 25 - 40 mmHg LAB HEMATOLOGY METHOD 10/18/2024 3:50 AM EDT [facility] SO2, Measured, Venous 100(H) 65 - 80 % LAB HEMATOLOGY METHOD 10/18/2024 3:50 AM EDT [facility] Base Excess, Venous 7.1(H) -2.0 - 3.0 mmol/L LAB HEMATOLOGY METHOD 10/18/2024 3:50 AM EDT [facility] Bicarbonate, Calculated, Venous 32(H) 22 - 26 mmol/L LAB HEMATOLOGY METHOD 10/18/2024 3:50 AM EDT [facility] Hematocrit, Whole Blood 27.5(L) 34.0 - 45.0 % LAB HEMATOLOGY METHOD 10/18/2024 3:50 AM EDT [facility] Sodium, Whole Blood 133(L) 136 - 145 mmol/L LAB HEMATOLOGY METHOD 10/18/2024 3:50 AM EDT [facility] Potassium, Whole Blood 2.8(L) 3.6 - 4.9 mmol/L LAB HEMATOLOGY METHOD 10/18/2024 3:50 AM EDT [facility] Chloride, Whole Blood 91(L) 97 - 107 mmol/L LAB HEMATOLOGY METHOD 10/18/2024 3:50 AM EDT [facility] Glucose, Whole Blood 72(L) 74 - 99 mg/dL LAB HEMATOLOGY METHOD 10/18/2024 3:50 AM EDT [facility] Lactate, Venous, Whole Blood 0.7 0.5 - 2.2 mmol/L LAB HEMATOLOGY METHOD 10/18/2024 3:50 AM EDT [facility] Ionized Calcium, Whole Blood 4.3(L) 4.6 - 5.1 mg/dL LAB HEMATOLOGY METHOD 10/18/2024 3:50 AM EDT [facility] Blood Venous blood specimen / Unknown Venipuncture / Unknown 10/18/2024 3:38 AM EDT 10/18/2024 3:48 AM EDT us Hilton Montelongo MD LAB BLOOD ORDERABLES Final Re sult Performing Organization Address City/[facility]/ZIP Co de Phone Number [facility] [address] [place] [address] * Phosphorus, Plasma (10/18/2024 3:38 AM EDT) Phosphorus, Plasma 3.4 2.5 - 4.5 mg/dL 10/18/2024 4:17 AM EDT [facility] Blood Venous blood specimen / Unknown Venipuncture / Unknown 10/18/2024 3:38 AM EDT 10/18/2024 3:49 AM EDT us Hilton Montelongo MD LAB BLOOD ORDERABLES Final Re sult [facility] [address] [place] [address] * Magnesium (10/18/2024 3:38 AM EDT) Magnesium, Plasma 2.1 1.9 - 2.4 mg/dL 10/18/2024 4:17 AM EDT [facility] Blood Venous blood specimen / Unknown Venipuncture / Unknown 10/18/2024 3:38 AM EDT 10/18/2024 3:49 AM EDT us Hilton Montelongo MD LAB BLOOD ORDERABLES Final Re sult [facility] [address] [place] [address] * (ABNORMAL) Basic metabolic panel (10/18/2024 3:38 AM EDT) Glucose, Plasma 73(L) 74 - 99 mg/dL 10/18/2024 4:17 AM EDT [facility] BUN, Plasma 8 7 - 21 mg/dL 10/18/2024 4:17 AM EDT [facility] Creatinine, Plasma 0.66 0.60 - 1.10 mg/dL 10/18/2024 4:17 AM EDT [facility] BUN/Creatinine Ratio 12 10/18/2024 4:17 AM EDT [facility] Sodium, Plasma 133(L) 136 - 145 mmol/L 10/18/2024 4:17 AM EDT [facility] Potassium, Plasma 3.1(L) 3.6 - 4.9 mmol/L 10/18/2024 4:17 AM EDT [facility] Chloride, Plasma 92(L) 97 - 107 mmol/L 10/18/2024 4:17 AM EDT [facility] CO2, Plasma 27 22 - 29 mmol/L 10/18/2024 4:17 AM EDT [facility] Anion Gap 14 6 - 16 mmol/L 10/18/2024 4:17 AM EDT [facility] Total Calcium, Plasma 8.0(L) 8.9 - 10.2 mg/dL 10/18/2024 4:17 AM EDT [facility] eGFRcr 119.0 mL/min/1.7 3m*2 10/18/2024 4:17 AM EDT [facility] Comment:Reported eGFRcr in m L/min/1.73m2 is based the CKD-EPI 2020 equation that does not use a race coefficient. Blood Venous blood specimen / Unknown Venipuncture / Unknown 10/18/2024 3:38 AM EDT 10/18/2024 3:49 AM EDT us Hilton Montelongo MD LAB BLOOD ORDERABLES Final Re sult [facility] [address] [place] [address] * Bile acids, total (10/18/2024 1:12 AM EDT) [facility] BILE ACIDS, TOTAL 5 0 - 10 umol/L 10/20/2024 12:29 AM EDT [facility] ([employer]) Blood Venous blood specimen / Unknown Venipuncture / Unknown 10/18/2024 1:12 AM EDT 10/18/2024 1:18 AM EDT Narrative [facility] ([facility]) - 10/20/2024 12:29 AM EDT INTERPRETIVE INFORMATION: Bile Acids, Total Reference Interval applies to fasting specimens. Performed By: [employer] [address] [place] [address] [employer] Operator: Brandon Bell MD, PhD CLIA Number: [id number] Hilton Montelongo MD LAB BLOOD ORDERABLES Final Re sult Performing Organization Address [facility] Co de Phone Number [facility] ([employer]) [address] [place] [address] * Troponin T, High Sensitivity, 2 Hour, Plasma (10/18/2024 1:12 AM EDT) [facility] Troponin T, High Sensitivity, 2 Hour <6 <14 ng/L 10/18/2024 1:[address] [facility] Blood Venous blood specimen / Unknown Venipuncture / Unknown 10/18/2024 1:12 AM EDT 10/18/2024 1:18 AM EDT Hilton Montelongo MD LAB BLOOD ORDERABLES Final Re sult [facility] [address] [place] [address] * Group A Streptococcus by PCR (10/17/2024 11:25 PM EDT) [facility] Group A Streptococcus PCR Result Not Detected Not Detected 10/18/2024 12:38 AM EDT [facility] Swab Structure of peritonsillar tissue / Unknown Non-blood Collection / Unknown 10/17/2024 11:25 PM EDT 10/17/2024 11:49 PM EDT Hilton Montelongo MD LAB MICROBIOLOGY - GENERAL OR DERABLES Final Result Performing Organization Address City/[facility]/ZIP Co de Phone Number [facility] [address] [place] [address] * ECG Adult (10/17/2024 10:50 PM EDT) EKG DIAGNOSIS CLASS Borderline Normal MUSE ECG Ventricular Rate 92 BPM MUSE ECG Atrial Rate 92 BPM MUSE ECG DC Interval 142 ms MUSE ECG QRSD Interval 78 ms MUSE ECG QT Interval 366 ms MUSE ECG QTC Interval 452 ms MUSE ECG P [place] 62 degrees MUSE ECG R [place] 45 degrees MUSE ECG T Wave [place] 61 degrees MUSE ECG Diagnosis Sinus rhythm with premature atrial complexes with aberrant conduction MUSE ECG Diagnosis Otherwise normal ECG MUSE ECG Diagnosis MUSE ECG Diagnosis Confirmed by Amish Paz ([id number]) on 10/18/2024 8:04:52 PM MUSE ECG 10/17/2024 10:5 0 PM EDT 10/18/2024 8:04 PM EDT us Hilton Montelongo MD ECG ORDERABLES Final Result Performing Organization Address [facility] Co de Phone Number MUSE ECG * Magnesium (10/17/2024 10:41 PM EDT) Pathologist [facility] Magnesium, Plasma 2.2 1.9 - 2.4 mg/dL 10/17/2024 11:16 PM EDT [facility] Blood Venous blood specimen / Unknown Venipuncture / Unknown 10/17/2024 10:41 PM EDT 10/17/2024 10:45 PM EDT Hilton Montelongo MD LAB BLOOD ORDERABLES Final Re sult Performing Organization Address City/[facility]/ZIP Co de Phone Number [facility] [address] [place] [address] * Troponin T, High Sensitivity, 0 Hour Plasma, Reflex to 2 Hour (10/17/2024 10:41 PM EDT) Pathologist [facility] Troponin T, High Sensitivity, 0 Hour <6 <14 ng/L 10/17/2024 11:16 PM EDT [facility] Blood Venous blood specimen / Unknown Venipuncture / Unknown 10/17/2024 10:41 PM EDT 10/17/2024 10:45 PM EDT us Hilton Montelongo MD LAB BLOOD ORDERABLES Final Re sult [facility] [address] [place] [address] * (ABNORMAL) Blood gas panel, venous (10/17/2024 10:41 PM EDT) Pathologist [facility] pH, Venous 7.62(HH) 7.32 - 7.43 LAB HEMATOLOGY METHOD 10/17/2024 10:47 PM EDT [facility] pCO2, Venous 31(L) 37 - 52 mmHg LAB HEMATOLOGY METHOD 10/17/2024 10:47 PM EDT [facility] pO2, Venous 185(H) 25 - 40 mmHg LAB HEMATOLOGY METHOD 10/17/2024 10:47 PM EDT [facility] SO2, Measured, Venous 100(H) 65 - 80 % LAB HEMATOLOGY METHOD 10/17/2024 10:47 PM EDT [facility] Base Excess, Venous 10.6(H) -2.0 - 3.0 mmol/L LAB HEMATOLOGY METHOD 10/17/2024 10:47 PM EDT [facility] Bicarbonate, Calculated, Venous 32(H) 22 - 26 mmol/L LAB HEMATOLOGY METHOD 10/17/2024 10:47 PM EDT [facility] Hematocrit, Whole Blood 29.4(L) 34.0 - 45.0 % LAB HEMATOLOGY METHOD 10/17/2024 10:47 PM EDT [facility] Sodium, Whole Blood 132(L) 136 - 145 mmol/L LAB HEMATOLOGY METHOD 10/17/2024 10:47 PM EDT [facility] Potassium, Whole Blood 2.3(LL) 3.6 - 4.9 mmol/L LAB HEMATOLOGY METHOD 10/17/2024 10:47 PM EDT [facility] Chloride, Whole Blood 87(L) 97 - 107 mmol/L LAB HEMATOLOGY METHOD 10/17/2024 10:47 PM EDT [facility] Glucose, Whole Blood 76 74 - 99 mg/dL LAB HEMATOLOGY METHOD 10/17/2024 10:47 PM EDT [facility] Lactate, Venous, Whole Blood 1.1 0.5 - 2.2 mmol/L LAB HEMATOLOGY METHOD 10/17/2024 10:47 PM EDT [facility] Ionized Calcium, Whole Blood 4.2(L) 4.6 - 5.1 mg/dL LAB HEMATOLOGY METHOD 10/17/2024 10:47 PM EDT [facility] Blood Venous blood specimen / Unknown Venipuncture / Unknown 10/17/2024 10:41 PM EDT 10/17/2024 10:45 PM EDT us Hilton Montelongo MD LAB BLOOD ORDERABLES Final Re sult [facility] [address] [place] [address] * (ABNORMAL) Comprehensive metabolic panel (10/17/2024 10:41 PM EDT) Glucose, Plasma 77 74 - 99 mg/dL 10/17/2024 11:16 PM EDT [facility] BUN, Plasma 9 7 - 21 mg/dL 10/17/2024 11:16 PM EDT [facility] Creatinine, Plasma 0.70 0.60 - 1.10 mg/dL 10/17/2024 11:16 PM EDT [facility] BUN/Creatinine Ratio 13 10/17/2024 11:16 PM EDT [facility] Sodium, Plasma 132(L) 136 - 145 mmol/L 10/17/2024 11:16 PM EDT [facility] Potassium, Plasma 2.5(LL) 3.6 - 4.9 mmol/L 10/17/2024 11:16 PM EDT [facility] Chloride, Plasma 88(L) 97 - 107 mmol/L 10/17/2024 11:16 PM EDT [facility] CO2, Plasma 27 22 - 29 mmol/L 10/17/2024 11:16 PM EDT [facility] Anion Gap 17(H) 6 - 16 mmol/L 10/17/2024 11:16 PM EDT [facility] Total Calcium, Plasma 8.4(L) 8.9 - 10.2 mg/dL 10/17/2024 11:16 PM EDT [facility] Total Protein 5.8(L) 6.3 - 7.9 g/dL 10/17/2024 11:16 PM EDT [facility] Albumin, Plasma 3.0(L) 3.5 - 5.2 g/dL 10/17/2024 11:16 PM EDT [facility] AST, Plasma 69(H) 10 - 35 U/L 10/17/2024 11:16 PM EDT [facility] ALT, Plasma 76(H) 10 - 35 U/L 10/17/2024 11:16 PM EDT [facility] [facility] Alkaline Phosphatase, Plasma 76 35 - 104 U/L 10/17/2024 11:16 PM EDT [facility] Total Bilirubin, Plasma 0.7 0.2 - 1.1 mg/dL 10/17/2024 11:16 PM EDT [facility] eGFRcr 117.3 mL/min/1.7 3m*2 10/17/2024 11:16 PM EDT [facility] Comment:Reported eGFRcr in m L/min/1.73m2 is based the CKD-EPI 2020 equation that does not use a race coefficient. Blood Venous blood specimen / Unknown Venipuncture / Unknown 10/17/2024 10:41 PM EDT 10/17/2024 10:45 PM EDT us Hilton Montelongo MD LAB BLOOD ORDERABLES Final Re sult [facility] [address] [place] [address] * (ABNORMAL) CBC (10/17/2024 10:41 PM EDT) WBC Count 10.63(H) 3.70 - 10.30 10*3/uL LAB HEMATOLOGY METHOD 10/17/2024 10:53 PM EDT [facility] RBC Count 3.27(L) 3.90 - 5.20 10*6/uL LAB HEMATOLOGY METHOD 10/17/2024 10:53 PM EDT [facility] HGB 9.7(L) 11.2 - 15.7 g/dL LAB HEMATOLOGY METHOD 10/17/2024 10:53 PM EDT [facility] HCT 28.7(L) 34.0 - 45.0 % LAB HEMATOLOGY METHOD 10/17/2024 10:53 PM EDT [facility] Platelet Count 185 155 - 369 10*3/uL LAB HEMATOLOGY METHOD 10/17/2024 10:53 PM EDT [facility] MCV 88 79 - 98 fL LAB HEMATOLOGY METHOD 10/17/2024 10:53 PM EDT [facility] MCH 29.7 26.0 - 32.0 pg LAB HEMATOLOGY METHOD 10/17/2024 10:53 PM EDT [facility] MCHC 33.8 30.7 - 35.5 g/dL LAB HEMATOLOGY METHOD 10/17/2024 10:53 PM EDT [facility] RDW 15.8(H) 11.5 - 14.5 % LAB HEMATOLOGY METHOD 10/17/2024 10:53 PM EDT [facility] MPV 12.3 8.8 - 12.5 fL LAB HEMATOLOGY METHOD 10/17/2024 10:53 PM EDT [facility] nRBC 0.0 <=0.0 per 100 WBCs LAB HEMATOLOGY METHOD 10/17/2024 10:53 PM EDT [facility] Blood Venous blood specimen / Unknown Venipuncture / Unknown 10/17/2024 10:41 PM EDT 10/17/2024 10:45 PM EDT us Hilton Montelongo MD LAB BLOOD ORDERABLES Final Re sult [facility] [address] [place] [address] * SARS CoV-2/COVID-19 by PCR (10/17/2024 8:50 PM EDT) [facility] SARS CoV-2/COVID-1 9 RNA PCR Result Not Detected Not Detected 10/19/2024 1:[address] [facility] Swab Nasopharyngeal structure / Unknown Non-blood Collection / Unknown 10/17/2024 8:50 PM EDT 10/17/2024 9:28 PM EDT Narrative [facility] - 10/19/2024 1:56 AM EDT [...] MICROBIOLOGY - GENERAL OR DERABLES Final Result [facility] [address] [place] [address] * Nasopharyngeal Respiratory Panel (10/17/2024 8:50 PM EDT) [facility] Nasopharyngeal Respiratory PCR Interpretation Not Detected for all analytes Not Detected for all analytes 10/17/2024 11:[address] [facility] Swab Nasopharyngeal structure / Unknown Non-blood Collection / Unknown 10/17/2024 8:50 PM EDT 10/17/2024 9:28 PM EDT Narrative [facility] - 10/17/2024 11:23 PM EDT [...] Respiratory PCR Panel is performed using the [employer] ePlex instrument. This test is FDA approved for use with Nasopharyngeal swabs only. This test is used for clinical purposes. It should not be regarded as investigational or for research. The [facility] Clinical Microbiology [facility] is certified under the Clinical Laboratory Improvement Amendments of 1988 (CLIA-88) as qualified to perform high complexity clinical laboratory testing. Hilton Montelongo MD LAB MICROBIOLOGY - GENERAL OR DERABLES Final Result Performing Organization Address [facility] Co de Phone Number [facility] [address] [place] [address] * Treponema Pallidum (Syphilis) Antibodies with Reflex to RPR and RPR Titer (Those with NO known Syphilis) (10/17/2024 7:31 PM EDT) [facility] Syphilis Antibody (IgG+IgM) Nonreactive Nonreactive 10/17/2024 10:[address] [facility] Comment:Nonreactive. No sero logic evidence of syphilis. No follow-up necessary unless clinically indicated (e.g., early syphilis). Blood Venous blood specimen / Unknown Venipuncture / Unknown 10/17/2024 7:31 PM EDT 10/17/2024 7:44 PM EDT Hilton Montelongo MD LAB BLOOD ORDERABLES Final Re sult Performing Organization Address [facility]/ZIP Co de Phone Number [facility] [address] [place] [address] * Type and Screen (10/17/2024 7:31 PM EDT) Pathologist [facility] ABO/Rh O Positive 10/17/2024 7:10 PM EDT [facility] Antibody Screen Negative 10/17/2024 7:10 PM EDT [facility]LO[facility] Specimen Expiration 10/20/2024 23:59 10/17/2024 7:10 PM EDT BLO[facility] Blood Venous blood specimen / Unknown Venipuncture / Unknown 10/17/2024 7:31 PM EDT 10/17/2024 7:44 PM EDT Hilton Montelongo MD LAB BLOOD BANK TEST ORDERABLE S Final Result Performing Organization Address [facility]/ZIP Co de Phone Number BLOOD BANK [address] [place] [address], * Troponin T, High Sensitivity, 2 Hour, Plasma (10/17/2024 6:18 PM EDT) Troponin T, High Sensitivity, 2 Hour <6 <14 ng/L 10/17/2024 7:[address] [facility] Blood Venous blood specimen / Unknown Venipuncture / Unknown 10/17/2024 6:18 PM EDT 10/17/2024 6:46 PM EDT Job Devine PRODUCT ENGINEER, CNM LAB BLOOD ORDERABLES Final Result Performing Organization Address City/[facility]/ZIP Co de Phone Number [facility] [address] [place] [address] * XR Chest 1 View (10/17/2024 4:38 [...] ECG Atrial Rate 116 BPM MUSE ECG DC Interval 140 ms MUSE ECG QRSD Interval 80 ms MUSE ECG QT Interval 324 ms MUSE ECG QTC Interval 450 ms MUSE ECG P [place] 63 degrees MUSE ECG R [place] 39 degrees MUSE ECG T Wave [place] 50 degrees MUSE ECG Diagnosis Sinus tachycardia [...] - 7.1 mg/dL 10/17/2024 9:51 PM EDT [facility] Blood Venous blood specimen / Unknown Venipuncture / Unknown 10/17/2024 4:05 PM EDT 10/17/2024 4:20 PM EDT us Hilton Montelongo MD LAB BLOOD ORDERABLES Final Re sult Performing Organization Address City/[facility]/ZIP Co de Phone Number [facility] [address] [place] [address] * (ABNORMAL) Lactate dehydrogenase (10/17/2024 4:05 PM EDT) LDH, Plasma 267(H) 116 - 250 U/L 10/17/2024 9:51 PM EDT [facility] Comment:Hemolyzed, result ma y be falsely increased. Blood Venous blood specimen / Unknown Venipuncture / Unknown 10/17/2024 4:05 PM EDT 10/17/2024 4:20 PM EDT us Hilton Montelongo MD LAB BLOOD ORDERABLES Final Re sult Performing Organization Address [facility]/ZIP Co de Phone Number [facility] [address] [place] [address] * Phosphorus (10/17/2024 4:05 PM EDT) Phosphorus, Plasma 2.5 2.5 - 4.5 mg/dL 10/17/2024 5:[address] [facility] Blood Venous blood specimen / Unknown Venipuncture / Unknown 10/17/2024 4:05 PM EDT 10/17/2024 4:20 PM EDT us Hilton Montelongo MD LAB BLOOD ORDERABLES Final Re sult [facility] [address] [place] [address] * (ABNORMAL) Magnesium (10/17/2024 4:05 PM EDT) Magnesium, Plasma 1.4(L) 1.9 - 2.4 mg/dL 10/17/2024 5:07 PM EDT [facility] Blood Venous blood specimen / Unknown Venipuncture / Unknown 10/17/2024 4:05 PM EDT 10/17/2024 4:20 PM EDT Hilton Montelongo MD LAB BLOOD ORDERABLES Final Re sult Performing Organization Address City/[facility]/ZIP Co de Phone Number [facility] [address] [place] [address] * N-Terminal Probnp (10/17/2024 4:05 PM EDT) Pathologist [facility] N-Terminal, PROBNP, Plasma 125 0 - 449 pg/mL 10/17/2024 5:07 PM EDT [facility] Blood Venous blood specimen / Unknown Venipuncture / Unknown 10/17/2024 4:05 PM EDT 10/17/2024 4:20 PM EDT Job Devine PRODUCT ENGINEER, CNM LAB BLOOD ORDERABLES Final Result Performing Organization Address [facility] Co de Phone Number [facility] [address] [place] [address] * Troponin T, High Sensitivity, 0 Hour Plasma, Reflex to 2 Hour (10/17/2024 4:05 PM EDT) [facility] Troponin T, High Sensitivity, 0 Hour <6 <14 ng/L 10/17/2024 5:07 PM EDT [facility] Blood Venous blood specimen / Unknown Venipuncture / Unknown 10/17/2024 4:05 PM EDT 10/17/2024 4:20 PM EDT Job Devine PRODUCT ENGINEER, CNM LAB BLOOD ORDERABLES Final Result Performing Organization Address [facility]/ZIP Co de Phone Number [facility] [address] [place] [address] * (ABNORMAL) D DIMER, QUANTITATIVE (10/17/2024 4:05 PM EDT) Pathologist [facility] D Dimer, Quantitative 2.33(H) <0.50 ug/mL FEU LAB COAGULATION METHOD 10/17/2024 4:47 PM EDT [facility] Blood Venous blood specimen / Unknown Venipuncture / Unknown 10/17/2024 4:05 PM EDT 10/17/2024 4:19 PM EDT Narrative [facility] - 10/17/2024 4:47 PM EDT [...] should be considered in the clinical context. us Job Devine APRN, MARYANA LAB BLOOD ORDERABLES Final Result [facility] [address] [place] [address] * (ABNORMAL) Comprehensive metabolic panel (10/17/2024 4:05 PM EDT) Glucose, Plasma 78 74 - 99 mg/dL 10/17/2024 5:07 PM EDT [facility] BUN, Plasma 9 7 - 21 mg/dL 10/17/2024 5:07 PM EDT [facility] Creatinine, Plasma 0.74 0.60 - 1.10 mg/dL 10/17/2024 5:07 PM EDT [facility] BUN/Creatinine Ratio 12 10/17/2024 5:07 PM EDT [facility] Sodium, Plasma 136 136 - 145 mmol/L 10/17/2024 5:07 PM EDT [facility] Potassium, Plasma 2.5(LL) 3.6 - 4.9 mmol/L 10/17/2024 5:07 PM EDT [facility] Chloride, Plasma 87(L) 97 - 107 mmol/L 10/17/2024 5:07 PM EDT [facility] CO2, Plasma 32(H) 22 - 29 mmol/L 10/17/2024 5:07 PM EDT [facility] Anion Gap 17(H) 6 - 16 mmol/L 10/17/2024 5:07 PM EDT [facility] Total Calcium, Plasma 9.0 8.9 - 10.2 mg/dL 10/17/2024 5:07 PM EDT [facility] Total Protein 6.5 6.3 - 7.9 g/dL 10/17/2024 5:07 PM EDT [facility] Albumin, Plasma 3.1(L) 3.5 - 5.2 g/dL 10/17/2024 5:07 PM EDT [facility] AST, Plasma 82(H) 10 - 35 U/L 10/17/2024 5:07 PM EDT [facility] ALT, Plasma 93(H) 10 - 35 U/L 10/17/2024 5:07 PM EDT [facility] Alkaline Phosphatase, Plasma 83 35 - 104 U/L 10/17/2024 5:07 PM EDT [facility] Total Bilirubin, Plasma 0.6 0.2 - 1.1 mg/dL 10/17/2024 5:07 PM EDT [facility] eGFRcr 109.7 mL/min/1.7 3m*2 10/17/2024 5:07 PM EDT [facility] Comment:Reported eGFRcr in m L/min/1.73m2 is based the CKD-EPI 2020 equation that does not use a race coefficient. Blood Venous blood specimen / Unknown Venipuncture / Unknown 10/17/2024 4:05 PM EDT 10/17/2024 4:20 PM EDT Job Devine PRODUCT ENGINEER, CNM LAB BLOOD ORDERABLES Final Result [facility] [address] [place] [address] * (ABNORMAL) CBC and Differential (10/17/2024 4:05 PM EDT) WBC Count 9.54 3.70 - 10.30 10*3/uL LAB HEMATOLOGY METHOD 10/17/2024 4:41 PM EDT [facility] RBC Count 3.40(L) 3.90 - 5.20 10*6/uL LAB HEMATOLOGY METHOD 10/17/2024 4:41 PM EDT [facility] HGB 10.2(L) 11.2 - 15.7 g/dL LAB HEMATOLOGY METHOD 10/17/2024 4:41 PM EDT [facility] HCT 29.7(L) 34.0 - 45.0 % LAB HEMATOLOGY METHOD 10/17/2024 4:41 PM EDT [facility] Platelet Count 177 155 - 369 10*3/uL LAB HEMATOLOGY METHOD 10/17/2024 4:41 PM EDT [facility] MCV 87 79 - 98 fL LAB HEMATOLOGY METHOD 10/17/2024 4:41 PM EDT [facility] MCH 30.0 26.0 - 32.0 pg LAB HEMATOLOGY METHOD 10/17/2024 4:41 PM EDT [facility] MCHC 34.3 30.7 - 35.5 g/dL LAB HEMATOLOGY METHOD 10/17/2024 4:41 PM EDT [facility] RDW 15.9(H) 11.5 - 14.5 % LAB HEMATOLOGY METHOD 10/17/2024 4:41 PM EDT [facility] MPV 12.1 8.8 - 12.5 fL LAB HEMATOLOGY METHOD 10/17/2024 4:41 PM EDT [facility] nRBC 0.0 <=0.0 per 100 WBCs LAB HEMATOLOGY METHOD 10/17/2024 4:41 PM EDT [facility] Differential Type Automated LAB HEMATOLOGY METHOD 10/17/2024 4:41 PM EDT [facility] Neutrophils % 63 % LAB HEMATOLOGY METHOD 10/17/2024 4:41 PM EDT [facility] Lymphocytes % 24 % LAB HEMATOLOGY METHOD 10/17/2024 4:41 PM EDT [facility] Monocytes % 11 % LAB HEMATOLOGY METHOD 10/17/2024 4:41 PM EDT [facility] Eosinophils % 1 % LAB HEMATOLOGY METHOD 10/17/2024 4:41 PM EDT [facility] Basophils % 0 % LAB HEMATOLOGY METHOD 10/17/2024 4:41 PM EDT [facility] Immature Granulocytes % 1 % LAB HEMATOLOGY METHOD 10/17/2024 4:41 PM EDT [facility] Neutrophils Absolute 6.06 1.60 - 6.10 10*3/uL LAB HEMATOLOGY METHOD 10/17/2024 4:41 PM EDT [facility] Lymphocytes Absolute 2.31 1.20 - 3.90 10*3/uL LAB HEMATOLOGY METHOD 10/17/2024 4:41 PM EDT [facility] Monocytes Absolute 1.05(H) 0.30 - 0.90 10*3/uL LAB HEMATOLOGY METHOD 10/17/2024 4:41 PM EDT [facility] Eosinophils Absolute 0.06 0.00 - 0.50 10*3/uL LAB HEMATOLOGY METHOD 10/17/2024 4:41 PM EDT [facility] Basophils Absolute 0.01 0.00 - 0.10 10*3/uL LAB HEMATOLOGY METHOD 10/17/2024 4:41 PM EDT [facility] Immature Granulocytes Absolute 0.05 0.00 - 0.06 10*3/uL LAB HEMATOLOGY METHOD 10/17/2024 4:41 PM EDT [facility] Blood Venous blood specimen / Unknown Venipuncture / Unknown 10/17/2024 4:05 PM EDT 10/17/2024 4:24 PM EDT Narrative [facility] - 10/17/2024 4:41 PM EDT Therapeutic decision making should be based on absolute values, rather than percentages. Job Devine PRODUCT ENGINEER, MARYANA LAB BLOOD ORDERABLES Final Result [facility] [address] [place] [address] documented in this encounter Visit Diagnoses Diagnosis [...] in OR, 1 dose, Starting on [place] 10/17/25 at 2040, Until 10/20/24 at 1216, Routine, Pre-Delivery baclofen (Fleqsuvy) 25 MG/5ML oral suspension 10 mg 10 mg, Oral, 3 times daily, First dose on Mon10/19/24 at 2100, Until Discontinued, Routine Given 10/19/2024 [...] Starting on [place] 10/17/24 at 2338, Until [place] 10/20/24 at 0744, Routine, muscle spasms Given 10/19/2024 12:19 PM EDT 5 mg Given 10/19/2024 1:21 AM EDT 5 mg Given 10/18/2024 6:39 PM EDT 5 mg dextrose 5 % and lactated Ringer's infusion 75 mL/hr, Intravenous, Continuous, Starting on Mon10/18/24 at 1030, Until [place] 10/20/24 at 1216, Routine New Bag 10/18/2024 [...] dose, On [place] 10/17/24 at 2000, Routine New 10/17/2024 8:26 PM EDT 4 g 25 [...] Starting on [place] 10/17/24 at 1911, Until [place] 10/20/24 at 1216, Routine, Pre-Delivery, vomiting, nausea ondansetron ODT (Zofran-ODT) disintegrating tablet 4 mg 4 mg, Oral, Every 6 hours PRN, Starting on [facility] 10/17/24 at 1911, Until [place] 10/20/24 at 1216, Routine, Pre-Delivery, nausea, vomiting pantoprazole (Protonix) EC tablet 40 mg 40 mg, Oral, Daily, First dose on [facility] 10/19/24 at 0200, Until Discontinued, Routine Given 10/19/2024 1:21 AM EDT 40 mg pantoprazole (Protonix) injection 40 mg 40 mg, Intravenous, Daily, First dose on [place] 10/20/24 at 0900, Until Discontinued, Routine potassium [...] Last dose on 10/19/24 at 1400, RoutineIndications:Hypokalemia 10/19/2024 3:08 PM EDT 10 mEq 100 mL/hr New 10/19/2024 1:42 PM EDT 10 mEq 100 mL/hr New 10/19/2024 12:39 PM EDT 10 mEq 100 mL/hr potassium chloride IVPB 10 mEq 10 mEq, Intravenous, Every 1 hour, 2 doses, First dose on 10/19/24 at 1715, Last dose on [facility] 10/19/24 at 1815, RoutineIndications:Hypokalemia 10/19/2024 6:34 PM EDT 10 mEq 100 mL/hr 10/19/2024 5:17 PM EDT 10 mEq 100 [...] Starting on [place] 10/17/24 at 2335, Until Mon10/20/24 at 1216, Routine, nausea, vomiting Given 10/19/2024 12:19 PM EDT 5 mg Given 10/18/2024 1:53 PM EDT 5 mg Given 10/18/2024 12:17 AM EDT 5 mg promethazine (Phenergan) tablet 12.5 mg 12.5 mg, Oral, Every 6 hours PRN, Starting on [place] 10/17/24 at 2110, Until Mon10/20/24 at 1216, Routine, nausea, vomiting Given 10/19/2024 1:21 AM EDT 12.5 mg sodium chloride 0.9 % flush 3 mL 3 mL, Intravenous, As needed, Starting on [place] 10/17/24 at 1909, Until Mon10/20/24 at 1216, Routine, Pre-Delivery, line care, 3 mL flush for PERIPHERAL IV CARE ONLY. sodium citrate-citric acid (Bicitra) 500-334 MG/5ML solution 30 mL 30 mL, Oral, Once in OR, 1 dose, Starting on [place] 10/17/24 at 2040, Until Mon10/20/24 at 1216, Routine, Pre-Delivery sodium phosphates 30 [...] Mon10/20/24 at 1216, Routine, Pre-Delivery, per MD ordersIndications:Tachysystole [...] on 10/19/24 at 2100, Until Discontinued, Routine 2338 (Given [...] Discontinued, Routine 1238 (Given - Provider: Tex Harman RN) 0802 (Given - Provider: Brandee Cross [...] on Mon10/18/24 at 2100, Until Discontinued, Routine 2044 (Given - Provider: Tiffany Fabian, RN) 0802 (Given - Provider: Brandee Cross, RN)2250 (Not Given - Provider: Kelly Sanabria, BRIT - Reason: Hold for condition: must add comment - Comment: pt stated she took medication that day shift nurse had left for her. Morena Wren MD aware and states we will continue to monitor patient labs and reorder medication if needed.) 08 (Not Given - Provider: Emiliana Daniel RN - Reason: Patient/family refused) magnesium sulfate IVPB 2 g (COMPLETED) 2 g, Intravenous, Once, 1 dose, On 10/19/24 at 1715, Routine 1725 (New Bag - Provider: Devorah Marin, RN) magnesium sulfate IVPB 2 g (COMPLETED) [...] Harman, BRIT) 0802 (Given - Provider: Brandee Cross, RN) 0814 (Not Given - Provider: Emiliana Daniel, BRIT - Reason: Patient/family refused) mupirocin (Bactroban) 2 % ointment 1 Application Each Nostril, 2 times daily, 10 doses, First dose on Mon10/18/24 at 1030, Last dose on Mon10/22/24 at 2100, Routine 1002 (Given - Provider: Tex Harman RN)2044 (Given - Provider: Tiffany Fabian, RN) 08 (Given - Provider: Brandee Cross, RN)2102 (Given - Provider: Kelly Sanabria RN) 0953 (Not Given - Provider: Sybil Lockett RN - Reason: Patient/family refused) pantoprazole (Protonix) EC tablet 40 mg (CANCELED) 40 mg, Oral, Daily, First dose on Mon10/19/24 at 0200, Until Discontinued, Routine 012 (Given - Provider: Rosio Dunne RN) pantoprazole (Protonix) injection 40 mg 40 mg, Intravenous, Daily, First dose on Mon10/20/24 at 0900, Until Discontinued, Routine 09 (Not Given - Provider: Sybil Lockett RN [...] on risks and benefits. Will continue to monitor.)1721 (Not Given - Provider: Devorah Marin RN - Reason: Hold for condition: must add comment - Comment: pt states unable to swallow meds)2108 (Given - Provider: Kelly Sanabria, RN) 0953 (Not Given - Provider: Sybil Lockett RN - Reason: Patient/family refused) potassium chloride CR (Klor-Con) ER tablet 40 mEq 40 mEq, Oral, 3 times daily, First dose on [place] 10/17/24 at 2100, Until Discontinued, Routine 0915 (Given - Provider: Tex Harman, BRIT)1128 (Canceled Entry - Provider: Tex Harman RN)1625 (Given - Provider: Tex Harman, BRIT)2045 (Given [...] BRIT)1257 (New Bag - Provider: Tex Harman, RN)1449 (New Bag - Provider: Tex Harman, BRIT) potassium chloride IVPB 10 mEq (COMPLETED) [...] RN)1508 (New Bag - Provider: Brandee Cross, RN) potassium chloride IVPB 10 mEq (COMPLETED) [...] Discontinued, Routine 0915 (Given - Provider: Tex Harman RN)1626 (Given - Provider: Tex Harman RN)2044 (Given - Provider: Tiffany Fabian RN) 0802 (Given - Provider: Brandee Cross, RN)1600 (Canceled Entry - Provider: Automatic Discharge Provider - Comment: Automatically canceled at discontinue of medication order)225 (Not Given - Provider: Kelly Sanabria RN - Reason: Hold for condition: must add comment - Comment: pt stated she took medication that day shift nurse had left for her. Morena Wren MD aware and states we will continue to monitor patient labs and reorder medication if needed.) 814 (Not Given - Provider: Emiliana Daniel RN - Reason: Patient/family refused) Continuous Medication Order 10/18/2024 10/19/2024 10/20/2024 dextrose 5 % and lactated Ringer's infusion 75 mL/hr, Intravenous, Continuous, Starting on 10/18/24 at 1030, Until Mon10/20/24 at 1216, Routine [...] spasms 1002 (Given - Provider: Tex Harman RN)1839 (Given - Provider: Tex Harman RN) 0121 (Given - Provider: Rosio Dunne RN)1219 (Given - Provider: Brandee Cross RN) famotidine (Pepcid) tablet 20 mg(Linked Group 1) 20 mg, Oral, 2 times daily PRN, Starting on [place] 10/17/24 at 1911, Until 10/20/24 at 1216, Routine, Pre-Delivery, indigestion, heartburn, or inj IV 1002 (See Alternative - Provider: Tex Harman, BRIT) famotidine PF (Pepcid) injection 20 mg(Linked Group 1) 20 mg, Intravenous, 2 times daily PRN, Starting on [place] 10/17/24 at 1911, Until 10/20/24 at 1216, Routine, Pre-Delivery, indigestion, heartburn, or tablet po 1002 (Given - Provider: Tex Harman, BRIT) [...] Mon10/20/24 at 1216, Routine, Pre-Delivery, nausea, vomiting prochlorperazine (Compazine) injection 5 mg 5 mg, Intravenous, Every 6 hours PRN, Starting on Mon10/17/24 at 2335, Until Mon10/20/24 at 1216, Routine, nausea, vomiting 0017 (Given - Provider: Orlin Jimenez, RN)1353 (Given - Provider: Tex Harman, BRIT) 1219 (Given - Provider: Brandee Cross RN) promethazine (Phenergan) tablet 12.5 mg 12.5 mg, Oral, Every 6 hours PRN, Starting on Mon10/17/24 at 2110, Until Mon10/20/24 at 1216, Routine, nausea, vomiting 0121 (Given [...] Oral, Every 6 hours PRN, Starting on [facility] 10/17/24 at 1911, Until [place] 10/20/24 at 1216, Routine, Pre-Delivery, nausea, vomiting Or ondansetron (Zofran) injection 4 mgJump to med 4 mg, Intravenous, Every 6 hours PRN, Starting on [facility] 10/17/24 at 1911, Until [place] 10/20/24 at 1216, Routine, Pre-Delivery, vomiting, nausea Or ondansetron (Zofran) 4 MG/5ML solution 4 mgJump to med 4 mg, Oral, Every 6 hours PRN, Starting on [facility] 10/17/24 at 1911, Until [place] 10/20/24 at 1216, Routine, Pre-Delivery, nausea, vomiting Group 3: Insert peripheral IV (CANCELED) Once, On [facility] 10/17/24 at 1910, For 1 occurrence, Pre-Delivery And Saline lock IV (CANCELED) Once, On [facility] 10/17/24 at 1910, For 1 occurrence, Pre-Delivery And sodium chloride 0.9 % flush 3 mLJump to med 3 mL, Intravenous, As needed, Starting on [facility] 10/17/24 at 1909, Until [place] 10/20/24 at 1216, Routine, Pre-Delivery, line care, [...] as of this encounter Care Teams Insurance Case Manager Relationship Specialty Start Date End Date Norma Friedman APRN [address] [place], [place] [address], [place] [address] PCP - General 09/23/24 Lizz Trinh, RN [facility] Registered Nurse Cardiology 09/26/24 documented as of this encounter
--- OUTSIDE RECORDS SUMMARY | 2024-10-19 01:03 | XMS_ITS | Encounter Summary ---
Author Organization Healthcare Address [address] [place] [address] Care Team Providers Care Water Quality Tester Name Role Phone jennyfer Kadedev Coy APRN Primary Care Provider +1- [phone] Lizz Trinh RN Unavailable Unavailable Reason for Visit * Auth/Cert (Routine) Specialty Diagnoses / Procedures Referred By Tarik t Referred To Contact Diagnoses Hypokalemia Electrolyte abnormality Hilton Montelongo MD [address] [address] Phone: tel: fax: [facility] Labor [facility] Delivery [address] [place] [address] Phone: tel: fax: Referral ID Status Reason Start Date Expiration Date Visits Re quested Visits Authorized [id number] 1 1 Encounter Details Date Type Department Care Team (Late st Contact Info) Description 10/19/2024 1:03 AM EDT Anesthesia Event [facility] Delivery [address] [place] [address] Everett Farrar MD [address] [place] [address] Anesthesia Record Procedure Summary Procedure Name Responsible [...] more drinks on one occasion? 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 Contact Info) Description 11/21/2024 11:15 AM EDT Visit Medical Office Building Obstetrics and Gynecology [address] [facility], [address] [place] [address] Nneka Gipson MD [address] [place] [address] 12/25/2024 1:00 PM EST Office Visit [facility] Nephrology, Bone & Mineral Metabolism [address] [facility], [address] [place] [address] documented as of this encounter [...] documented as of this encounter Care Teams Water Quality Tester Relationship Specialty Start Date End Date Norma Friedman APRN [address] [place] [address] PCP - General 09/23/24 Lizz Trinh, RN [facility] Registered Nurse Cardiology 09/26/24 documented as of this encounter
--- OUTSIDE RECORDS SUMMARY | 2024-10-24 08:00 | XMS_ITS | Encounter Summary ---
Author Organization Healthcare Address [address] [place] [address] Care Team Providers Care Special Skills Officer Name Role Phone Norma Friedman FURNACE LOADER Primary Care Provider [phone]- [phone] Lizz Trinh RN Unavailable Unavailable Reason for Visit * Reason Comments Edema * Consultation (Routine) - Closed Specialty Diagnoses / Procedures Referred By Tarik t Referred To Contact Diagnoses Palpitations Syncope and collapse Nneka Block MD [address] [place] [address] Phone: tel: fax: Referral ID Status Reason Start Date Expiration Date Visits Re quested Visits Authorized [id number] Closed 09/26/2024 03/28/2026 1 1 Encounter Details Date Type Department Care Team (Late st Contact Info) Description 10/24/2024 8:00 AM EDT Office Visit [facility] [place] [address], [address] [place] [address] Nneka Block MD [address] [place] [address] Palpitations (Primary Dx) Social History [...] more drinks on one occasion? Never 09/23/2024 [place] Depression Scale Answer Date Recorded [place] Depression Scale Total 0 09/23/2024 The [...] ? Natural and processed cheeses such as Prydeinig, blue, mozzarella, and Lithuanian Meat and protein substitutes Special instructions: ? [...] ? Oat meal ? Whole wheat ? [place] ? Pumpernickel ? White ? Raisin ? Crackers prepared without butter, lard, coconut, or palm oil ? Dry cereals that contain allowed fats ? Rice and pasta prepared with allowed fats ? Egg noodles (limit to ?? cup per day) ? Vietnamese ? Vincentian ? Belarusian muffins ? Pancakes, waffles, biscuits, and cornbread made with allowed ingredients ? Flat bread ? Yemi crackers ? Matzoh crackers ? Whole grain or enriched cereals prepared with allowed oils ? Wheat germ Avoid: ? Egg or cheese bread ? Butter rolls ? Commercially prepared products: biscuits, muffins, sweet rolls, cornbread, pancakes and waffles, nigerien toast, croissants ? Noodles ? Cheese crackers ? Flavored crackers prepared with saturated fats ? Any cereal prepared with saturated fat ? Zimbabwean noodles ? Rice and pasta prepared with eggs, cream, or high fat cheese Fruits Choose: ? Any fresh, frozen, canned, or dried fruit or juice ? Avocado Vegetables Choose: ? Any fresh, frozen, or canned vegetables ? Potatoes prepared with allowed fat ? Olives (limit to 10 small or 5 large per day) Avoid: ? Buttered, creamed, or fried vegetables ? Tdnd-j-fenfy, commercially made ? Vegetables prepared in a [...] sizes are listed below: ? Nuts: The Prydeinig Heart Association recommends including 5 servings of [...] avocado oil, etc.: 1 tablespoon o The Prydeinig Heart Association recommends limiting oils to 3 [...] ingredients ? Sorbet ? Ice milk ? [place] ? Gum drops ? Jelly beans ? [...] saturated fats, cheese, and/or egg yolks ? [place] chips ? Potato chips and other snack [...] much from the food you eat. Use TargetCast Networkser to Help Build Your Meals The RennoviaTracker can help you plan and track your meals and activity. You can look up individual foods to see or compare their nutritional value. You can get guidelines for what and how much you should eat. You can compare your food choices. And you can assess personal physical activities and see ways you can improve. Go to www.Hedgeablemyplate.gov/General Atomicstracker/. Eating Heart-Healthy Food: Using the DASH Plan [...] from the original note were not included. 70243 Aerobic Exercise for a Healthy Heart Exercise [...] provider. Last Reviewed Date: 2024 00:00:00 ?? [id number] The Digital Bloom. All rights reserved. This information is not intended as a substitute for professional medical care. Always follow your healthcare professional's instructions. * Patient Instructions - Lexy Felix RN - 10/24/2024 8:00 AM EDT - For any questions or concerns, please contact Dr. Block's nurse, Lexy [phone]. * Progress Notes - Nneka Block MD - 10/24/2024 8:00 AM EDT [facility]) Problem List #Hypomagnesium and Hypokalemia -- PICC [...] to deliver locally. She will be seeing [facility] today as well. Whitney denies chest [...] is no recent study available for direct dfkl-go-pvuy comparison. ECHO 09/20/2024 (OSH) (personally reviewed) Normal [...] up appointment . Nneka Block MD Primary Negative Notcher: Umair Sandoval MFM: Nancy Due Date: Estimated [...] is no recent study available for direct yoba-bg-oerb comparison. [1] Past Medical History: Diagnosis Date [...] TOOTH EXTRACTION N/A Oral Surgery Tooth Extraction [place] Tooth from [facility] [3] Social History Socioeconomic [...] Resource Strain: Low Risk (05/28/2024) Received from [facility] Overall Financial Resource Strain (CARDIA) Difficulty of Paying Living Expenses: Not hard at all Food Insecurity: No Food Insecurity (05/28/2024) Received from [facility] Hunger Vital Sign Within the past 12 months, you worried that your food would run out before you got the money to buymore.: Never true Within the past 12 months, the food you bought just didn't last and you didn't have money to get more.: Never true Transportation Needs: No Transportation Needs (05/28/2024) Received from [facility] PRAPARE - Transportation In the past 12 months, has lack of transportation kept you from medical appointments or from getting medications?: No In the past 12 months, has lack of transportation kept you from meetings, work, or from getting things needed for daily living?: No Physical Activity: Sufficiently Active (05/28/2024) Received from [facility] Exercise Vital Sign On average, how many days per week do you engage in moderate to strenuous exercise (like a brisk walk)?: 5 days On average, how many minutes do you engage in exercise at this level?: 40 min Stress: Stress Concern Present (05/27/2024) Received from [facility] [place] of Occupational Health - Occupational Stress Questionnaire Feeling of Stress : To some extent Social Connections: Not At Risk (05/28/2024) Received from [facility] Family and Community Support If for any reason you need help with day-to-day activities such as bathing, preparing meals, shopping, managing finances, etc., do you get the help you need?: I don't need any help How often do you feel lonely or isolated from those around you?: Sometimes Intimate Partner Violence: Not At Risk (08/19/2024) Received from [facility] Abuse Screen Feels Unsafe at Home or Work/School: no Feels Threatened by Someone: no Does Anyone Try to Keep You From Having Contact with Others or Doing Things Outside Your Home?: no Physical Signs of Abuse Present: no Housing Stability: Not At Risk (08/20/2024) Received from [facility] Housing Stability Current Living Arrangements: home [...] Office Building Obstetrics and Gynecology [address], [address] [place] [address] Nneka Gipson MD [address] [place] [address] 12/25/2024 1:00 PM EST Office Visit [facility] Nephrology, Bone & Mineral Metabolism [address], [address] [place] [address] documented as of this encounter Procedures Procedure Name Priority Date/Time Associated Diagnosis Comments N-TERMINAL PROBNP, PLASMA Routine 10/24/2024 8:38 AM EDT Palpitations documented in this encounter Results * Troponin T, High Sensitivity, Cardiac Risk Assessment (10/24/2024 8:38 AM EDT) Troponin T, High Sensitivity, 0 Hour <6 <14 ng/L 10/24/2024 11:40 AM EDT [facility] Blood Venous blood specimen / Unknown Venipuncture / Unknown 10/24/2024 8:38 AM EDT 10/24/2024 8:40 AM EDT us Nneka Block MD LAB BLOOD ORDERABLES Final Result [facility] [address] [place] [address] * N-Terminal Probnp, Plasma (10/24/2024 8:38 AM EDT) N-Terminal, PROBNP, Plasma 175 0 - 449 pg/mL 10/24/2024 11:40 AM EDT [facility] Blood Venous blood specimen / Unknown Venipuncture / Unknown 10/24/2024 8:38 AM EDT 10/24/2024 8:40 AM EDT us Nneka Block MD LAB BLOOD ORDERABLES Final Result [facility] [address] [place] [address] documented in this encounter Visit Diagnoses Diagnosis [...] documented as of this encounter Care Teams Special Skills Officer Relationship Specialty Start Date End Date Norma Friedman APRN [address] [place] [address] PCP - General 09/23/24 Lizz Trinh, RN [facility] Registered Nurse Cardiology 09/26/24 documented as of this encounter
--- OUTSIDE RECORDS SUMMARY | 2024-10-24 09:45 | XMS_ITS | Encounter Summary ---
Author Organization Healthcare Address [address] [place] [address] Care Team Providers Care Candy Waffle Assembler Name Role Phone Norma burger JOLENE Primary Care Provider [phone] Lizz Trinh RN Unavailable Unavailable Reason for Visit * Reason Comments Routine Visit Encounter Details Date Type Department Care Team (Latest Contact Info) Description 10/24/2024 9:45 AM EDT Routine Medical Office Building Obstetrics and Gynecology [address], [address] [place] [address] Laury Cruz MD [address] [place] [address] Supervision of high risk , antepartum (Primary Dx); 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), sequela; Renal tubular acidosis; Hypokalemia; Cardiac arrhythmia, unspecified cardiac arrhythmia type; Cholestasis during in third trimester Social History Tobacco Use Types Packs/Day [...] more drinks on one occasion? Never 09/23/2024 Malin Depression Scale Answer Date Recorded Malin Depression Scale Total 0 09/23/2024 The thought [...] Sign Reading Time Taken Comments Blood Pressure 101/61 10/24/2024 9:29 AM EDT Pulse 80 10/24/2024 9:29 AM EDT Temperature 36.2 C (97.2 F) 10/24/2024 9:29 AM EDT Respiratory Rate 20 10/24/2024 9:29 AM EDT Oxygen Saturation 99% 10/24/2024 9:29 AM EDT Inhaled Oxygen Concentration - - Weight 70.4 kg (155 lb 3.3 oz) 10/24/2024 9:29 A M EDT Height 162.6 cm (5' 4 ) 10/24/2024 9:29 AM EDT Body Mass Index 26.64 10/24/2024 9:29 AM EDT documented in this encounter Functional [...] usual. Not at all 10/24/2024 7:52 AM EDT Nadine Lamb Thoughts that you would be b hailey off or hurting yourself in some way Not at all 10/24/2024 7:52 AM EDT Nadine Lamb Patient Health Questionnaire-9 Score 0 10/07 7:52 AM EDT Nadine Lamb * How difficult have these problems made it for you to do your work, take care of things at home, or get along with other people? Answer Date of Assessment Author Not difficult at all 10/24/2024 7:52 AM EDT Nadine Munroe documented as of this encounter Miscellaneous Notes * Patient Instructions - Eri Calle RN - 10/24/2024 9:45 AM EDT Images from the original note were not included. [id number] First Trimester Assessment Important phone numbers [facility]: [phone] Genetic Counselor - [facility] [place]: [phone] Congratulations on your ! Learn more about how we can assess the health of you and your baby. Pre-eclampsia Risk Assessment: Am I at risk for pre-eclampsia this ? Certain health conditions can increase your risk for pre-eclampsia in . Pre-eclampsia is acomplication. It can cause high blood pressure, swelling, and headaches. It can even lead to organ damage. When it is severe, it can lead to delivery of your baby. We offer screening between 11-13 weeks of to assess your risk of pre- eclampsia. If you have a higher risk, we may ask you to start taking baby aspirin at 12 weeks. If you have a higher risk, studies show that baby aspirin can reduce the risk of delivering a baby early from pre-eclampsia by 62%. What should I expect? We look at your medical and history for risk factors. We do an ultrasound test. This lets us look at the blood flow through your uterus (known as uterineartery Dopplers). It takes less than 5 minutes and is not painful. We check your blood pressure. Defect Screening and Genetic Screening 50% of defects can be detected in the first trimester. Some defects are related to genetic issues and some are not. We offer early screening for all women in . Between 11-13 weeks of , all women should have an ultrasound. At this visit, we can assessseveral areas of your developing baby for abnormalities. These include: early brain anatomy, major heart defects, major body abnormalities, and common chromosome conditions such as Down syndrome. Tests for you baby: Nuchal Translucency (NT) Evaluation: Recommended to all women. This is an ultrasound between 11-14 weeks of . It measures a pocket of fluid near the neck of your developing baby. If this NT area is enlarged, it may be related to a chromosome abnormality, rare genetic condition, heart defect, or other defect. First Trimester Screening (FTS): Offered to all women between 11-14 weeks of . This screening combines the NT evaluation with a blood test (from your arm). It checks two proteins related to . This test screens for two common chromosome conditions. It finds 85% of Down syndrome cases. It finds 80% of trisomy 18 cases. Non-Invasive Testing (NIPT/cell free DNA): Offered to all women any time after 10 weeks ofpregnancy. Recommended if you are over the age of 35 or if you had a affected by a chromosome condition. In , some of the placenta???s DNA travels through your blood. In this bloodtest (from your arm), DNA is measured to check your risk for common chromosome conditions. These include: Down syndrome, trisomy 18, trisomy 13, and sex chromosome abnormalities (like Ovalle syndrome). It finds up to 99% of cases for these conditions. It can also tell the sex of your baby (99.4% accurate and earlier than ultrasound). FTS is very often covered by insurance plans, but NIPT might not be covered. Your maximum gjb-sr-jahpwd cost would be $299 if NIPT is not covered. If you would like to check the cost of NIPT based onyour insurance plan, please call the lab. The lab we use is [facility]. Call its billing specialists at [phone]. The name of their NIPT is called ???RavicaL70 Plus.?? Tests for parents (inherited conditions) Carrier screening is done by a blood draw from your arm or a saliva sample. We all carry changes (mutations) in some of our genes. You may not know you carry a genetic condition if you do not have symptoms. If both parents carry a change in the same gene, then their children could be at risk from the genetic condition. Standard Carrier Screening: All women should have carrier screening for Cystic Fibrosis and Spinal Muscular Atrophy. If you test negative, the chance of having a baby with one of these conditions is low, but not zero. If you test positive, you are considered a carrier. In this case, the father of the baby should be tested and further genetic counseling will be provided. If you do not have insurance or if your insurance does not fully cover the cost of standard carrierscreening, the maximum ufr-hy-urevab cost would be $199. If you would like to check the cost based on your insurance plan, please call the lab. The lab we use is [facility]. Call their billing specialistsat [phone]. Expanded Carrier Screening (ECS): This is an optional test. It checks if you and your partner carrybetween 200-500 genetic conditions. The cost depends on the specific test you choose. If ECS interests you, please call [facility] at [phone] for more information. The tests listed above are screening tests. This means they detect a chance for an issue. A false positive or false negative is possible with any screening test. A true genetic diagnosis can be confirmed by an amniocentesis or chorionic villus sampling (CVS). More genetic testing can also be done after the baby is born. Still unsure which test to choose? There is no ???right?? answer to this question. Every person is different and every is unique. Some women choose very comprehensive genetic testing. Other women choose only to monitor the by ultrasound. We will support whatever decision you make. Please contact us at the numbers above if you need help deciding which tests to have in the first trimester. Please know that not all defects can be detected in early . Some defects cannot be found until after . You should return in the second trimester - at about 20 weeks of - for full anatomy check of the baby. : Your First Trimester Changes The first trimester is a time of rapid development for your baby. Because your baby is growing so quickly, it is important that you start a healthy lifestyle right away. By the end of the first trimester, your baby has formed all of its major body organs and weighs just over an ounce. Month 1 (weeks 1 to 4) The placenta (the organ that nourishes your baby) begins to form. The brain, spinal cord, heart, gastrointestinal tract, and lungs begin to develop. Your baby is about ?? inch long by the end of the first month. Actual size of baby is 1/4 . Month 2 (weeks 5 to 8) All of your baby???s major body organs form. The face, fingers, toes, ears, and eyes appear. By theend of the month, your baby is about 1 inch long. Actual size of baby is 1 . Month 3 (weeks 9 to 12) Your baby can open and close its fists and mouth. The sexual organs begin to form. As the first trimester ends, your baby is about 3 inches long. Actual size of baby is 3 . Adapting to : First Trimester As your body adjusts during your first trimester of , you may have to change or limit yourdaily activities. You???ll need more rest. You may also need to use the energy you have more wisely. Your changing body Almost every part of your body is affected as you adapt to . The uterus and cervix will start to soften right away. You may not look very during the first 3 months. But you are likely to have some common signs of early : Nausea Fatigue Frequent urination Mood swings Bloating of the belly Constipation Heartburn Missed or light periods (first trimester bleeding) Nipple or breast tenderness and breast swelling It???s not too late to start good habits What matters most is protecting your baby from this moment on. If you smoke, drink alcohol, or use drugs, now is the time to stop. If you need help, talk with your healthcare provider: Smoking increases the risk of stillbirth or having a jai-guvdj-ruilbj baby. If you smoke, quit now. Alcohol and drugs have been linked with miscarriage, defects, intellectual disability, and low weight. Don't drink alcohol or take drugs. Tips to relieve nausea During , nausea can happen at any time of the day, but it may be worse in the morning. To help prevent nausea: Eat small, light meals at frequent intervals. Drink fluids often. Get up slowly. Eat a few unsalted crackers before you get out of bed. Avoid smells that bother you. Avoid spicy and fatty foods. Eat an ice pop in your favorite flavor. Get plenty of rest. Ask your healthcare provider about taking erinn or vitamin B6 for nausea and vomiting. Talk with your healthcare provider if you take vitamins that upset your stomach. Work concerns The end of the first trimester is a good time to discuss working during with your employer. Follow your healthcare provider???s advice if your job needs you to stand for a long time, work with hazardous tools, or even sit at a desk all day. Your workspace, workload, or scheduled hours mayneed to be adjusted. Perhaps you can change body postures more often or take an extra break. Advice for travel Talk to your healthcare provider first, but the second trimester may be the best time for any travel. You may be advised to avoid certain trips while you???re . Food and water can be concernsin developing countries. Travel by car is a good choice, as you can stop, get out, and stretch. Bring snacks and water along. Fasten the lap belt below your belly, low over your hips. Also be sure to wear the shoulder harness. Intimacy Unless your healthcare provider tells you to, there's no reason to stop having sex while you???re . You or your partner may notice changes in desire. Desire may be less in the first trimesterdue to nausea and fatigue. In the second trimester, sex may be very enjoyable. The third trimester can be a challenge comfort-solorzano. Try different positions and see what???s best for you both. How daily issues affect your health Many things in your daily life impact your health. This can include transportation, money problems,housing, access to food, and child welfare social worker. If you can???t get to medical appointments, you may not receive the care you need. When money is tight, it may be difficult to pay for medicines. And living far from a grocery store can make it hard to buy healthy food. If you have concerns in any of these or other areas, talk with your healthcare team. They may know of local resources to assist you. Or they may have a staff person who can help. Nutrition During Having a healthy baby depends mostly on you. What you eat matters to your baby and your health. During , you will likely need about 300 more calories per day than before you became .Each day, try to eat the number of servings listed here for each food group. In addition, cut down on salt and caffeine. Limit the amount of sweets and high-fat foods you eat. Don???t smoke or drink alcohol. Important: See your healthcare provider as often as asked. If you have any questions, be sure to ask them. Fruits Vegetables Grains & Cereals@ Fats & Oils 2 cups Examples of 1-cup servings: 1 medium apple 1 medium orange 1 medium banana 1 cup chopped fruit 1 cup 100% fruit juice (pasteurized) 1/2 cup dried fruit 2-1/2 to 3 cups Examples of 1 servin cups raw, leafy greens 1 cup raw or cooked cut-up vegetables 1 cup 100% vegetable juice (pasteurized) 6 to 8 ounces Examples of 1-ounce servings: 1 slice bread 1/2 cup cooked rice 1/2 cup cooked cereal 1/2 cup pasta 1 ounce cold cereal 6 to 8 teaspoons Dairy@@ Protein@@@ Fluids 3 cups Examples of 1-cup servings: 1 cup milk 1 cup yogurt 1-1/2 ounces natural cheese 2 ounces processed cheese 5 to 6-1/2 ounces Examples of 1-ounce servings: 1 egg 1 ounce of lean meat, poultry, or fish 1/4 cup cooked beans 1 tablespoon peanut butter 1/2 ounce nuts 8 or more 8-ounce glasses Examples: Water Mineral water Clear soups, broth @Note: Choose whole grains whenever possible. @@ Note: Try to choose low-fat foods; stay away from soft cheeses and unpasteurized milk. @@@ Notes: Don't eat raw or undercooked meats, eggs, seafood, fish, or shellfish. Some types of fish, such as shark, swordfish, and monie mackerel, should not be eaten during . Don't eat hot dogs, lunch meats, or cold cuts unless heated to steaming just before being served. Ask your healthcare provider about safe choices. supplements A supplement is a pill that you take daily during . It helps make sure you???re getting the right amount of certain nutrients that are important to your baby. Ask your healthcare provider to help you choose the best one for you. Important nutrients during include: Folic acid. It's best to start taking this supplement 1 month before you start trying to get . Folic acid helps prevent certain problems in your baby. During , you need to take 400 micrograms (mcg) of folic acid every day for the first 2 to 3 months after conception. After that, 600 mcg is needed for a growing baby and placenta. Iron, calcium, and vitamin D. You may also be advised to take these supplements during . They help keep you and your baby healthy. Take them at different times because calcium makes it hard for the body to absorb iron. Taking iron with orange juice helps to increase its absorption. Healthy Eating Habits During It???s important to develop healthy eating habits while you are , for you as well as for your baby. Here are some ways to stay healthy. Aim for a healthy weight A slow, steady rate of weight gain is often best. After the first trimester, you may gain about a pound a week. If you were overweight before , you need to gain fewer pounds. Your healthcareprovider can give you a healthy weight goal for your . Don???t diet Now is not the time to diet. You may not get enough of the nutrients you and your baby need. Instead, learn how to be a healthy eater. Start by doing it for your baby. Soon, you may do it for yourself. Vitamins and supplements Talk with your healthcare provider about taking these and other vitamins and supplements. Iron makes the extra blood you need now. Calcium and vitamin D help build and keep strong bones. Folic acid helps prevent certain defects. Iodine helps the thyroid work right. Some vitamins may not be safe to take. Your healthcare provider will tell you which ones to avoid. Fluids Drink at least 8 to 10 cups of fluid daily. Your baby needs fluids. Fluids also decrease constipation, flush out toxins and waste, limit swelling, and help prevent bladder infections. Water is best. Other good choices are: Water or seltzer water with a slice of lemon or chilkat. (These can also help ease an upset stomach.) Clear soups that are low in salt Low-fat or fat-free milk, soy or rice milk with calcium added Ice pops or gelatin Things to avoid Some things might harm your growing baby. Don???t eat or drink: Alcohol Unpasteurized dairy foods and juices Raw or undercooked meat, poultry, fish, or eggs Unwashed fruits and vegetables Prepared meats, like deli meats or hot dogs, unless heated until steaming hot Fish that are high in mercury, like shark, swordfish, monie mackerel, tilefish, and albacore tuna Things to limit Ask your healthcare provider whether it???s safe to eat or drink: Caffeine Artificial sweeteners Organ meats Certain types of fish Fish and shellfish that contain mercury in lower amounts, like shrimp, canned light tuna, salmon, pollock, and catfish Healthy Eating Habits During It???s important to develop healthy eating habits while you are , for you as well as for your baby. Here are some ways to stay healthy. Aim for a healthy weight A slow, steady rate of weight gain is often best. After the first trimester, you may gain about a pound a week. If you were overweight before , you need to gain fewer pounds. Your healthcareprovider can give you a healthy weight goal for your . Don???t diet Now is not the time to diet. You may not get enough of the nutrients you and your baby need. Instead, learn how to be a healthy eater. Start by doing it for your baby. Soon, you may do it for yourself. Vitamins and supplements Talk with your healthcare provider about taking these and other vitamins and supplements. Iron makes the extra blood you need now. Calcium and vitamin D help build and keep strong bones. Folic acid helps prevent certain defects. Iodine helps the thyroid work right. Some vitamins may not be safe to take. Your healthcare provider will tell you which ones to avoid. Fluids Drink at least 8 to 10 cups of fluid daily. Your baby needs fluids. Fluids also decrease constipation, flush out toxins and waste, limit swelling, and help prevent bladder infections. Water is best. Other good choices are: Water or seltzer water with a slice of lemon or chilkat. (These can also help ease an upset stomach.) Clear soups that are low in salt Low-fat or fat-free milk, soy or rice milk with calcium added Ice pops or gelatin Things to avoid Some things might harm your growing baby. Don???t eat or drink: Alcohol Unpasteurized dairy foods and juices Raw or undercooked meat, poultry, fish, or eggs Unwashed fruits and vegetables Prepared meats, like deli meats or hot dogs, unless heated until steaming hot Fish that are high in mercury, like shark, swordfish, monie mackerel, tilefish, and albacore tuna Things to limit Ask your healthcare provider whether it???s safe to eat or drink: Caffeine Artificial sweeteners Organ meats Certain types of fish Fish and shellfish that contain mercury in lower amounts, like shrimp, canned light tuna, salmon, pollock, and catfish : Common Questions There are plenty of myths and ???old wives??? tales?? about . You may need help fact from fiction. On this sheet, you???ll find answers to a few common questions. If you have other questions, talk with your healthcare provider. Will working harm my baby? In most cases, working throughout your is not harmful at all. There may be concerns if the job involves dangerous machinery or chemicals, lifting, or standing for very long periods of time.Talk with your healthcare provider and employer about your particular job and . Is it safe to have sex during ? Yes, unless you are specifically advised not to by your healthcare provider. Why can???t I change the cat litter box? Cats carry a disease called toxoplasmosis. In adult humans, it shows up as a mild infection of the blood and organs. If you are infected during , the baby???s brain and eyes could be damaged. To be safe, have someone else change the litter. If you must handle it, wear a paper mask over your nose and mouth. Also, wear gloves and wash your hands afterward. Which medicines are safe? No prescription or uonw-lwu-waluubg medicine is safe for everyone all of the time. But sometimes medicines are needed. Be sure your healthcare provider knows you are . Then use only the medicines they advise you to take. Is it true that I can overheat my baby? Yes. To prevent making your baby too warm: Don???t sit in a Jacuzzi. A long, warm bath is fine, but not in water over 100??F (37.7??C). Exercise less intensely if you feel tired. Base your workout on how you feel, not on your heart rate. Heart rates aren???t a good way to measure effort during . Can I lift and carry safely? Yes, if your healthcare provider doesn???t tell you otherwise. Learn to lift and carry safely to prevent injury and reduce back pain during . To protect your back: Bend at the knees to bring the load nearer. Get a good bag machine tender. Test the weight of the load. Tighten your belly. Exhale as you lift. Lift with your legs, not with your back. Carry the load close to your body. Hold the load so you can see where you are going. What if I get sick? Most people get sick at least once during . Talk with your healthcare provider if you do. Most likely it will not affect your . Get plenty of rest and fluids and eat what you can. Talk with your provider before taking any medicines. : More Common Questions On this sheet, you???ll find answers to some common questions about . If you have other questions, talk with your healthcare provider. Will traveling be too stressful? Not if you set the pace. When you plan a trip, allow time to stop and rest. You may even want to delay travel until the second trimester, when your body is more adjusted to . Don???t wait aslong as the third trimester, because of the possibility of going into early labor. Travel to a place where healthcare facilities are close by. You may want to take a copy of your records with you in case you need medical care when you are traveling. Can I still be a vegetarian or vegan? Yes. Be sure to consult a registered dietitian. And be sure to get enough of the following: Protein. Eat eggs and milk if you???re an ovo-lacto vegetarian. If you're a vegan, eat plant-based proteins, such as tofu and beans. (Vegans don't eat meat or any products that come from animals, such as milk, eggs, and cheese.) Calcium. If you don???t eat dairy, try soy milk, soy cheese fortified with calcium, and orange juice fortified with calcium. Vitamin B-12. You may need to take a supplement that includes folic acid. Vitamin D. If you don???t drink milk, ask about taking a supplement. Iron. Your healthcare provider may advise a supplement. Can I paint my nails? Yes. Nail andorran is not thought to be dangerous during . Just be careful about breathing the fumes. Keep windows open or use a fan. However, long-term exposure to the solvents used to removenail andorran may not be safe. If you work in a nail salon, talk with your healthcare provider about safety concerns. Should I eat more if I exercise? You will only need an extra 100 calories for each 30 minutes of mild exercise. But you???ll also need more fluids. Drink at least an extra 8 ounces of water. Do I have to stop jogging? You can jog as long as you are comfortable. Many people find the impact or bounce of a jogdoesn???t feel good. Some switch to brisk walking as their advances. What should I limit or not eat or drink? Don't drink unpasteurized milk products or juices. Don't eat raw or undercooked meat, poultry, fish, or eggs. Don't eat prepared meats, like hot dogs or deli meat, unless served steaming hot. Don't drink alcohol. Limit caffeine unless your healthcare provider tells you otherwise. Can I lift weights? If you have been lifting weights, there is no need to stop. Instead, keep the weights light and in control. Never hold your breath. If you haven???t been lifting weights, don???t start now. Ultrasound Ultrasound is a common procedure. It's used to confirm your due date or check your baby???s health. It's used even in low-risk pregnancies. But if there are any concerns that your baby may be at risk, ultrasound can also help. It can give your healthcare provider the information they need.This helps to make sure that you and your baby get the best possible care. Using sound waves to see your baby During ultrasound, high-frequency sound waves pass through your body and your baby. Some of those sound waves reflect off your baby. They then return to a handheld device (transducer.) This device sends the information back to the ultrasound machine. A visual image is then created on a screen. During ultrasound of the stomach While you lie down on the exam table, a layer of gel or oil is put on your stomach. This helps the sound waves more easily reach your baby. Then the transducer is slowly moved back and forth over your stomach. The procedure is painless for baby and mother. It usually takes from about 10 minutes up to about an hour. During vaginal ultrasound The transducer is covered with a condom or other sterile latex or nonlatex shield. Then it's inserted, like a tampon, into your vagina. You should have little discomfort during the test. It often takes less than 30 minutes. The Benefits of gives your new baby the very best start. It supplies food, comfort, and love. Expertsagree: is the healthiest choice for babies during the first year of life and beyond. It???s healthy for Mom, too. may be challenging at first. But you and your baby can succeed together. Healthiest for baby Breastmilk is the ideal food for babies. It has all the nutrients your little one needs to grow healthy and strong. Here are some of the many benefits for your baby: provides contact that babies love. Frequent [id number] time with Mom is calming andcomforting. Breastmilk is full of your antibodies. These are substances that help your baby fight infection. reduces your baby???s risk of ear infections, allergies, colds, childhood obesity, and risk of SIDS (sudden infant syndrome). gives your baby lifelong protection against some diseases, such as asthma, diabetes, inflammatory bowel disease, and some cancers. Formula does not provide any protection. Breastmilk changes as your baby grows, meeting her changing needs. Breastmilk is easy for your baby to digest. Your baby???s digestive system cannot digest other foods until at least 6 months of age. Breastmilk contains DHA, a fat that is good for your baby???s developing brain and eyes. Healthiest for mom For many women, is an amazing experience. It creates a strong mirza between mother andbaby. Other benefits for Mom include: You can feel proud knowing that your baby is growing healthy and strong because of your milk. castrejon calories. This can help you lose weight faster. releases hormones that contract the uterus. This helps the uterus return to its normal size after childbirth. Mothers who breastfeed have a decreased risk of ovarian and breast cancers. They also have a decreased rate of diabetes, osteoporosis, and depression. A sales consultant insurance is a healthcare provider specially trained to help moms. Your nurse, customs patrol officer, at home independent call center agent, or family practice doctor can also help you learn about . Important OB Phone Numbers If you have [...] with a nurse. [facility] (T[facility]) [facility] [address] [place] [address] [facility] Building [address], [address] [place] [address] [facility] [address] [place] [address] Family Practice [address], Third Floor [address] [place] [address] [facility] [address] [place] [address] [facility] [place] [address] [place] [address] [facility] [place] [address] [place] [address] : Your Second Trimester Changes Each day, you and your baby are changing and growing together. Here???s a quick look at what???s happening to both of you. How you are changing Even when you don???t notice it, your body is adapting to meet the needs of your growing baby. The changes in your body might also affect your moods. Your body Your uterus expands as your baby grows. As the weeks go by, you will feel more pressure on your bladder, stomach, and other organs. You may notice some skin color changes on your forehead, nose, or cheeks. Freckles may darken, and moles may grow. You may notice a darker line on your abdomen betweenyour belly button and pubic bone in the midline. Your moods The second trimester is often easier than the first. Still, be prepared for mood swings. These are from the increase in hormones made by your body. Hormones are chemicals that affect the way organs work. These mood swings are a normal part of . How your baby is growing Month 4 Your baby???s heartbeat may be heard with a Doppler (handheld ultrasound device) by 9 to 10 weeks. Eyebrows, eyelashes, and fingernails begin to form. Month 5 You may feel your baby move. After a growth spurt, your baby nears 10 inches. Month 6 Your baby???s fingerprints have formed. Your baby weighs about 1 to 2 pounds (0.45 to 0.91 kg) and is about 12 inches long. Adapting to : Second Trimester Keep up the healthy habits you started in your first trimester. You might be a little more tired than normal. So plan your day wisely. Look at the tips below and choose the ones that suit your lifestyle. If you work If you can, adjust your work with your employer to fit your needs. Try these tips: If you stand for long periods, find ways to do some tasks while sitting. Also, try to stand with one foot resting on a low stool or ledge. Shift your weight from foot to foot often. Wear low-heeled shoes. If you sit, keep your knees level with your hips. Rest your feet on a firm surface. Sit tall with support for your lower back. If you work long hours, ask about adjusting your schedule. Try taking shorter breaks more often. When you travel The second trimester may be the best time for any travel. Talk to your healthcare provider about any special plans you may need to make. Always: Wear a seat belt. Fasten the lap part under your belly. Wear the shoulder part also. Take breaks often during long trips by car or plane. Move around to stretch your legs. Drink plenty of fluids on flights. The air in plane cabins is very dry. Stay out of hot climates or high altitudes if you are not used to them. Stay away from places where the food and water might make you sick. Make sure you are up-to-date on all vaccines, including the flu vaccine. This is especially important when traveling overseas. Taking time to relax Find time to rest and relax at work or at home: Take short time-outs daily. Do relaxation exercises. Breathe deeply during stressful times. Try not to take on too much. Plan tasks for times when you have the most energy. Take naps when you can. Or just sit and relax. After week 16, don't lie on your back for more than a few minutes. Instead, lie on your side. Switch sides often. Having sex Unless your healthcare provider tells you otherwise, there is no reason to stop having sex now. Blood supply increases to the pelvic area in the second trimester. Because of this, sex might be more enjoyable. Try different positions and see what???s best. Also talk with your partner about any changes in desire. Spotting may happen after sex. Let your healthcare provider know if there is heavy bleeding. Keeping your environment safe You can still clean your house and use scented products. Just take some simple precautions: Wear gloves when using cleaning fluids. Open windows to let in fresh air. Use a fan if you paint. Stay away from secondhand smoke. Don???t breathe fumes from nail andorran, hair spray, cleansers, or other chemicals. How daily issues affect your health Many things in your daily life impact your health. This can include transportation, money problems,housing, access to food, and child welfare social worker. If you can???t get to medical appointments, you may not receive the care you need. When money is tight, it may be difficult to pay for medicines. And living far from a grocery store can make it hard to buy healthy food. If you have concerns in any of these or other areas, talk with your healthcare team. They may know of local resources to assist you. Or they may have a staff person who can help. Dental Care in is a time when your oral health needs more attention. Hormone changes during can cause problems with teeth and gums. And they can make treatment more complicated. How affects oral health Hormone changes in can cause swollen, bleeding, and irritated gums. This is called gingivitis. Your gums may be very sore. Brushing and flossing may cause discomfort. If not treated, gingivitis can lead to a more serious gum disease called periodontitis. Severe periodontitis can lead to tooth loss. Some people also have small bright-red growths on their gums that bleed easily. These are often called tumors. They are not cancer. They usually go away right after . Talk with your dentist or healthcare provider if you have concerns. Keeping a healthy mouth [place] twice daily with fluoride toothpaste. Floss at least once a day. If you have frequent morning sickness, rinse your mouth with a teaspoon of baking soda mixed with water after vomiting. This is to stop the stomach acid from attacking teeth. Don't brush your teeth right after vomiting. This can remove tooth enamel. See your dentist for cleanings and checkups more often if needed. This is especially true in your second and third trimesters. Ask your dentist or healthcare provider if you should use a special mouth rinse to help prevent gingivitis. Tell your dentist or healthcare provider about any changes in your mouth, such as soreness or bleeding. Safety concerns Make sure to tell your dentist that you???re . They can help you stay safe. If you need to have dental X-rays during , you will be fully protected by wearing a lead apron over your belly during the X-ray process. The apron helps block radiation from the X-rays. If you need to take medicines like antibiotics or pain relievers for dental problems, ask your healthcare providers first. They will talk with you about the risks and benefits of taking these during . If you have a high-risk , your dentist and your healthcare provider may advise you that some dental treatments should wait until after you give . Exercise During Regular exercise can help you adapt to the changes your body is going through during . Exercising may help you relax, and it gets you ready for labor and delivery. Talk with your healthcare provider about the kinds of activities you can do. Then go ahead and enjoy them. Get started Even if you didn???t exercise before , it's not too late to start. Choose an activity thatyou like and that fits your lifestyle. Begin slowly and build up a little at a time. Check with your healthcare provider before starting any exercise program. The following tips may help you get started: Choose a time and place to exercise each day. Wear loose-fitting clothes and comfortable athletic shoes. Stretch before and after you exercise. (Be sure to stretch slowly and to hold stretches for 30 to 40 seconds.) Be active Unless your healthcare provider says otherwise, try to exercise for 30 minutes or more most days ofthe week: Overall conditioning, such as swimming, bicycling, or walking, is especially beneficial. Aerobics and exercises that increase your pulse rate help condition your body and strengthen your heart. Ask about special aerobics classes. Exercise safely These tips will help you have a safe, healthy workout: Stay cool. Stop exercising if you feel overheated. Slow down if you???re out of breath. If you can???t talk during exercise, lower the intensity of the workout. Watch the intensity of your workout. Only do moderate-intensity (not strenuous) exercise. Stay off your back. Lying on your back can decrease blood flow to your baby. Drink water before, during, and after your workout. Eat 300 extra calories a day. A light snack before and after you exercise will help keep your energy up. Don't do activities needing balancing skills later in . Do Kegel exercises Kegel exercises strengthen the pelvic floor muscles used in childbirth. These muscles are the same ones used to stop the flow of urine. Do Kegel exercises daily: Squeeze your pelvic floor muscles for a count of 3. Relax, then squeeze again. Repeat 10 to 15 times in a row at least 3 times a day. You can do Kegel exercises anytime and anywhere. Keep walking No matter what other exercise you do, try to walk whenever you can: If you???re working all day, take a lunchtime walk in the park with a friend. When you shop, park away from the store entrance and walk the extra distance. Take the stairs instead of the elevator. When to stop exercising and call your healthcare provider Call your healthcare provider right away if you have: Shortness of breath before starting exercise Vaginal bleeding Dizziness or feeling faint Chest pain Headache Decreased movement contractions Muscle weakness Calf pain or swelling Fluid leaking from the vagina Influenza (Flu) and Influenza (the flu) is an infection of the respiratory tract. The tract is made up of your mouth, nose, and lungs, and the tubes between them. The flu can make a person very ill. This is because changes that occur during to the immune system, heart, and lungs make a person more likely to develop flu complications. These include sinus infections and serious lung infections, such as bronchitis and pneumonia. The flu can cause high fevers, which can cause defects and other complications in the developing fetus. In rare cases, the flu can lead to miscarriage or even of the person. This sheet tells you more about the flu, what to do if you get theflu, and what you can do to prevent infection. Who is at risk for the flu? Anyone can get the flu. But you are more likely to catch the flu if you: Are often around young children Work in a healthcare setting where you may be exposed to flu germs Live or work with someone who has the flu Haven???t had the annual flu shot How does the flu spread? The flu is caused by a virus. The virus spreads through the air in droplets when someone who has the flu coughs, sneezes, laughs, or talks. You can become infected when you breathe in the virus directly. You can also become infected when you touch a surface where the droplets have landed and then touch your eyes, nose, or mouth. Touching used tissues, or sharing utensils, drinking glasses, or a toothbrush with an infected person can expose you to the flu virus, too. What are the symptoms of the flu? Flu symptoms tend to start quickly and may last a few days to a few weeks. They include: Fever that's usually higher than 100.4??F ( 38??C) and chills Sore throat and headache Dry cough Runny nose Tiredness and weakness Body and muscle aches If you are and have flu-like symptoms Call your healthcare provider right away. Follow any directions they give you. You may be asked to get tested to confirm that you have the flu. Your healthcare provider may prescribe medicines called antivirals. These medicines must be taken within 2 days of when your symptoms started. In some cases, your healthcare provider may not wait fortest results to come back before starting you on antivirals. These medicines work by stopping the flu virus from reproducing in your body. This gives your body???s immune system a chance to fight the virus. After taking the medicine, your symptoms may be milder, and you may recover quicker than without the medicine. The medicine may also prevent serious complications, such as pneumonia. Antivirals are considered safe during , but talk with your healthcare provider if you have any concerns. Easing flu symptoms Drink lots of fluids, such as water, juice, and warm soup to prevent dehydration. A good rule is todrink enough so that you urinate your normal amount. Feeling dizzy or lightheaded most likely meansyou need to drink more fluid. Get plenty of rest. If you aren't hungry, eat smaller meals more often during the day to make sure you get enough calories. If you don't have a fever, put warm compresses on your forehead or sinuses to ease congestion. If you need medicines to ease symptoms, ask your healthcare provider which ones are safe for you totake. Call your healthcare provider if you become short of breath. Preventing the flu Washing your hands often with soap and water can help keep you from catching the flu virus. Get vaccinated. One of the best ways to prevent the flu is to get a flu shot. people can safely get a flu shot. But people should not get the nasal spray vaccine for the flu. This is a live-virus vaccine and may be harmful to the baby. Wash your hands often. Frequent handwashing is a proven way to prevent infection. Carry an alcohol-based hand gel that has at least 60% alcohol. Use it when you don???t have access to soap and water. Clean items you use often with disinfectant wipes. This includes phones, computer keyboards, and toys. Stay away from crowds and children as much as possible while you are . Stay away from anyone who has the flu. Tips for good handwashing Handwashing is one of the best ways to prevent many common infections. Follow these steps for more effective handwashing: Use warm water and plenty of soap. Work up a good lather. Clean the whole hand, under your nails, between your fingers, and up the wrists. Wash for at least 20 seconds. Don???t just wipe--scrub well. Rinse, letting the water run down your fingers, not up your wrists. Dry your hands well. Use a paper towel to turn off the faucet and open the door. Using alcohol-based hand gel Alcohol-based hand gels are also a good choice for cleaning your hands. Use them when you don???t have access to soap and water. Follow these steps: Squeeze about a tablespoon of gel into the palm of one hand. Rub your hands together briskly, cleaning the backs of your hands, the palms, between your fingers,and up the wrists. Rub until the gel is gone and your hands are completely dry. Blood Glucose Screening During Gestational diabetes is diabetes that only women get. Changes in your body during can cause high blood sugar (glucose). This can cause problems for you and your baby. It is a serious condition. But it can be controlled. Your healthcare provider will talk with you about blood glucose screening. Who is at risk for gestational diabetes? You are at risk of getting gestational diabetes if any of the risk factors below apply to you. The risk for this condition gets higher as your number of risk factors increases: You are , , , , or . You weigh more than your healthcare provider says is healthy for you. You have a relative with diabetes. You are older than 25. You had gestational diabetes during a past . You had a stillbirth or a very large baby before. You have a history of abnormal glucose tolerance. You have sugar in your urine at the first visit. You have metabolic syndrome, PCOS (polycystic ovary syndrome), are using glucocorticoids, or have high blood pressure. You are with twins or more What happens during a screening? Here is what to expect during a blood glucose screening: The [employer] (ACOG) advises that all women be screened for gestational diabetes. When you are screened depends on your risk. Women are tested at 24to 28 weeks of . Women at high risk may be tested when they first learn they are . A glucose screening test checks your blood sugar at the moment you???re tested. You???ll drink a liquid that contains glucose, and then 1 hour later your blood will be drawn to check your blood sugarlevel. If your blood sugar is high, you???ll need to take a glucose tolerance test. The glucose tolerance test measures your blood sugar before and after you drink a liquid that contains glucose. You???ll fast (not eat) overnight before the test and have your blood drawn. This will give you your fasting blood sugar level. Next, you will drink the glucose liquid and have your bloodsugar level checked 1 hour, 2 hours, and possibly 3 hours afterward to see how your body responds to the glucose. Results can differ depending on the size of the glucose drink and how often your blood sugar is tested. Ask your doctor what your test results mean. What to know if you test positive Here are some things you need to know: Gestational diabetes can be treated. The best way to control it is to find out you have it early and start treatment quickly. This condition can cause problems for the mother during . It can also cause problems with the baby during , delivery, and after. Treatment greatly lowers the chance for problems. The changes in your body that cause gestational diabetes normally happen only when you are . After the baby is born, your body goes back to normal. The condition goes away. But you may be more likely to have type 2 diabetes later. Talk with your healthcare provider about ways to help prevent type 2 diabetes. Treating gestational diabetes Here is how to treat gestational diabetes: You???ll need to check your blood sugar often. You can do this at home. Prick your finger and checka drop of blood on a glucose monitor. Your healthcare provider will show you how and when to check your blood sugar. They will talk about your target blood sugar level. To manage your blood sugar, you will be given a special plan. It will likely include meal planning and getting regular exercise. Some women need to take a hormone called insulin. Others may take medicine to help control their blood sugar. If You Are Rh Negative If you are and your blood is Rh negative, you need to be treated with medicine. You need this treatment even if you miscarry or don???t deliver the baby. This is to protect the health of anybaby you have in the future. What is the treatment? The treatment is a shot of medicine. The medicine is called Rho(D) immune globulin. This stops Rh antibodies from forming. The shot won???t harm you or your baby. When are you treated? If your blood has not made Rh antibodies, you???ll be given the medicine at these times: During week 28 of your Any time there???s a chance that your baby's blood has mixed with yours (such as due to a miscarriage or an ectopic ) If you have a test called amniocentesis If you have vaginal bleeding before 28 weeks A Rho(D) immune globulin injection protects against Rh disease in this and future pregnancies. After you give After you give , your baby???s blood will be tested. If their blood is Rh positive, you???ll be given the medicine again in 3 days. If their blood is Rh negative, you won???t need the medicine until your next . If you already have Rh antibodies If your blood has antibodies, this is called Rh sensitization. Rho(D) immune globulin can???t protect the baby. You and your baby will need special care during . This may include extra tests. Your healthcare provider will tell you what to expect. Preventing future problems Your risk of making Rh antibodies rises with each . This is true even if you don???t deliver a baby. Your body can make Rh antibodies even if you don???t give . This includes if you have an ectopic . This is when the fertilized egg is outside the uterus. It's true for a that ends in miscarriage or . You will still need the Rho(D) immune globulin medicine. This is to prevent problems in any future . Signs of Labor labor is a serious problem before 37 weeks of . This is too early, and your baby could be born too soon. Call your doctor right away if you have any of these signs. Contractions every 10 minutes or 6 contractions in a hour Change in vaginal discharge (leaking fluid or bleeding for your vagina) Pelvic pressure - the feeling that your baby is pushing down Low, dull backache Cramps that feel like your period Abdominal cramps with or without diarrhea For more information on labor contact your health care provider or visit www.[email or web address] [place] [facility]: [facility]: [facility] Triage: [facility]: Family Practice: [facility] [place]: [facility] [place]: [phone] FAQs How often should I nurse? Feed your whenever they show signs of hunger. A general guideline is to nurse around 8 to 12 times every 24 hours, or about every 2 to 3 hours. It's important to wake newborns to nurse at least every 3 hours until they are back to their weight. Once newborns have shown that they will demand enough milk to grow adequately, they will not need to be awakened to eat. And they will oftenspace out feedings as their hunger allows them. With time and patience, you and your baby will develop your own schedule and feeding pattern. How many months should I nurse? The [place] [employer] (ACOG) and the [place] [employer] Pediatric[employer] (AAP) both recommend that parents start as soon as possible after , ideally within the first hour. Research has shown that time [id number] after delivery helps to encourage this. Both organizations encourage -only, with no other supplements for healthy newborns for the first 6 months of life. At 6 months, your baby may slowly start having solid foods as well. But it is advised to keep at least through your baby???s first birthday. After the first birthday, you and your baby can keep up to 2 years and beyond. Or you may choose to stop at any time. Is my baby getting enough milk? There are a few ways to check if your baby is getting enough milk. Latching on You know your baby is getting milk if you hear gulping and swallowing sounds, not just sucking. Look for your baby steadily moving their jaw open and closed as another sign of correct ???latching on.?? If the latch is painful, it's important to ask for help from a sales consultant insurance or your healthcare provider. It could be a sign that your baby is having trouble latching correctly and may not be transferring milk from your breast well. Most of the time, this issue is common and can be easilymanaged with a little help. But should not cause ongoing pain. So it is important to find a trained sales consultant insurance who can help evaluate the latch. Urine output and stool frequency You can also tell how much milk your baby is getting by keeping track of your baby???s diapers. By the end of the first week of life: Your baby should have about 1 wet diaper on day 1, and 2 wet diapers on day 2. This should increaseeach day by 1 more wet diaper, up to 6 wet diapers on day 6 and then about 6 wet diapers every day.The urine will be a pale yellow color, not dark yellow or orange. Wet diapers should stay around this amount as your breastfed baby gets older. Your baby should have 3 or 4 stools per day that are at least a teaspoon in amount (not just smears). By the 4th day of life, the early black-brown, sticky meconium stool should start to change to a greenish color, then within another day or 2 to a loose yellow stool with curds. This is a normal breastfed stool. It's not uncommon for a breastfed baby to pass stool after each feeding. In the second to fourth week of life, the number of stools can increase to about 5 per day. After 1 month, the number of stools usually lessens. It might be 1 or 2 a day. Some babies may have a day or days with no stool. In these cases, stool should be in larger amounts when passed. If you are concerned about your baby's peeing (urinating) or bowel movements, talk with your infant's healthcare provider. Weight It???s normal for your baby to lose some weight during the first 3 to 4 days of life. A baby might normally lose up to 7% to 10% of their weight during this time. After that, your baby should start gaining again. By the end of the second week, they should be back to weight. In the weeksfollowing this, they will gain about a half ounce to an ounce per day. Does my baby need vitamins? All breastfed infants should take 400 international units (IU) a day of vitamin D (infant formulation). Your healthcare provider may prescribe this. Or it may be purchased over the counter. When your baby is 6 months old, you may start to offer baby foods that contain iron. You should discuss the possible need for iron supplementation with your infant's healthcare provider. What should I do if my breasts become swollen, tender, or sore? These symptoms are most often because your breasts are too full of milk (engorged). This is common when your milk first comes in or if you are making more milk than your baby is drinking. This may cause swelling and make it harder for your baby to nurse. If this happens, try the following: Keep nursing. This is a temporary condition. It gets better once you can get your baby to drink more milk. Be sure to breastfeed more often and let your baby feed until they are done. Be sure to massage your breast while feeding. This helps the breast drain as fully as possible. Express some milk before you breastfeed. Do this manually or with a breast pump. This will soften the darker area around the nipple (areola), so your baby can latch deeper to begin feeding. Use a warm compress. This can be a towel or paper diaper soaked in warm water. Or take a warm shower before feeding. Some people have found that switching off between a cold compress and a warm one gives them relief. If you feel comfortable with this, you can try it too. If you use an ice pack, wrap it in a thin towel to protect your skin. Take acetaminophen or ibuprofen for continued pain. The medicine is safe to take during . If your nipples or breasts continue to hurt, call your healthcare provider. Nipple and breast problems are urgent and need to be looked at and treated as soon as possible. When to get medical care Unless your baby???s healthcare provider advises otherwise, call the provider right away if your baby has any of these : Fever (see Fever and children below) Repeated vomiting Does not seem to be alert, refuses to nurse, or is sleeping too much, such as through feedings Has signs of fluid loss (dehydration). These include fewer wet diapers than normal or no urine for 8 hours, or the urine appears dark. Or your baby has no tears when crying, ???sunken eyes,?? or drymouth. Is losing weight or not gaining weight. Call your own healthcare provider right away if you have any of the following: Fever of 100.4??F (38??C) or higher, or as advised by your provider Redness, warmth, pain, or abnormal discharge from your breasts Such painful nipples and breasts that you want to stop nursing A hard lump in your breast Lower belly (abdominal) pain or cramping when you are not Pain or burning when you pee Unexpected vaginal bleeding or bad-smelling discharge Fever and children Use a digital thermometer to check your child???s temperature. Don???t use a mercury thermometer. There are different kinds and uses of digital thermometers. They include: Rectal. For children younger than 3 years, a rectal temperature is the most accurate. Forehead (temporal). This works for children age 3 months and older. If a child under 3 months old has signs of illness, this can be used for a first pass. The provider may want to confirm with a rectal temperature. Ear (tympanic). Ear temperatures are accurate after 6 months of age, but not before. Armpit (axillary). This is the least reliable but may be used for a first pass to check a child of any age with signs of illness. The healthcare provider may want to confirm with a rectal temperature. Mouth (oral). Don???t use a thermometer in your child???s mouth until they are at least 4 years old. Use the rectal thermometer with care. Follow the product maker???s directions for correct use. Insert it gently. Label it and make sure it???s not used in the mouth. It may pass on germs from the stool. If you don???t feel OK using a rectal thermometer, ask the healthcare provider what type to use instead. When you talk with any healthcare provider about your child???s fever, tell them which typeyou used. Below are guidelines to know if your young child has a fever. Your child???s healthcare provider may give you different numbers for your child. Follow your provider???s specific directions. Fever readings for a baby under 3 months old: First, ask your child???s healthcare provider how you should take the temperature. Rectal or forehead: 100.4??F (38??C) or higher Armpit: 99??F (37.2??C) or higher Fever readings for a child age 3 months to 36 months (3 years): Rectal, forehead, or ear: 102??F (38.9??C) or higher Armpit: 101??F (38.3??C) or higher Call the healthcare provider in these cases: Repeated temperature of 104??F (40??C) or higher in a child of any age Fever of 100.4?? F (38?? C) or higher in baby younger than 3 months Fever that lasts more than 24 hours in a child under age 2 Fever that lasts for 3 days in a child age 2 or older Common Questions About The first weeks of may be the most challenging. It???s normal to have fears and questions. Don???t worry. The two of you will learn what you need to know together. You???ll be surprisedhow much you and your baby will teach each other. Here are answers to some questions new mothers often ask: Is My Baby Getting Enough Milk? When it comes to feeding your baby, what goes in must come out. You can tell how much milk your baby is getting by keeping track of the baby???s diapers: By the first 24 hours after : The baby should have 1 wet diaper and 1 soiled (poopy) diapers. The second and third day after : The baby should have 2 to 3 wet diapers and 2 to 3 soiled diapers. Day 5-6: The baby should have at least 5 to 6 wet diapers and 4 soiled diapers a day. How Can I Tell When My Baby???s Hungry? Don???t wait until your baby cries to feed her. Newborns should be nursed as soon as they show any hunger signs. These include: Increased alertness or activity Rooting reflex (nuzzling against your breast) Smacking her lips or opening and closing her mouth Sucking on her hand or fingers Crying How Can I Tell When My Baby???s Full? Babies show signs when they are full. Some signs are if your baby: Lets go of your breast and nipple Falls asleep Relaxes hands and body Stop sucking How Often Should I Feed My Baby? Feed your baby as often and as long as she wants. Babies should eat 8-12 times a day. You may need to wake your baby for some feedings. Newborns tend to be very sleepy. But don???t let your baby sleep for more than 3 hours at a time. And if your baby fusses when feeding, don???t worry. Some babies get distracted easily. To calm your baby, choose a quiet place for feeding. It may also help if you b reastfeed in the same place in your home each time. Will I Spoil My Baby? Infants can???t be spoiled. When your baby needs comfort, food, or holding, she???ll try to let youknow. When you respond to your baby???s needs, you help her trust you. This is a time to shower your baby with love and attend to her needs. Why Is My Baby So Hungry? Babies eat a lot. This is even more true during a growth spurt. Growth spurts usually happen at 2 and 6 weeks of age. They happen again at 3 and 6 months. During these times, your baby will breastfeed more often. Don???t be alarmed. Your baby will not need formula or supplements. How long should I breastfeed? The [place] [employer] recommends that you breast feed for at least the first 6 months.You can start to feed your baby other foods after 6 months, but begin each meal with . Why shouldn???t I use formula? What are the risks? Formula is harder to digest than breast milk. It may cause stomach upset. Formula can increase the risk of your baby getting allergies or asthma. Formula does not provide your baby with immunities. This can increase the risk of your baby gettingsick Formula can cause problems with because: It increases the chance you will not make enough breastmilk. Babies need to nurse to cause you to make more milk. It increases the chance you will become engorged. Should I use a pacifier, and when can I give my baby a bottle? Don???t give your baby a pacifier or bottle for at least 4 weeks so that your milk supply is established and your baby won???t be confused. Babies suck differently on pacifiers and bottles, and need to stimulate your breasts to make milk. Anytime your baby wants to suck, it is better to breastfeed than to give your baby a pacifier. Here are some reasons: Bottles have long nipples that flow very fast. Some breastfed babies will refuse to nurse once theyhave become used to a bottle. Babies suck when they are hungry. Giving your baby a pacifier means that she may not breastfeed enough. Babies who do not breastfeed enough are at risk for jaundice, dehydration, and poor weight gain. How can I get help with ? If possible you should take a class while you are . Your health care providerhas brochures with information on where and when classes are held. Classes are also available on how to care for your baby, and how to manage labor pain without medications. In the hospital, your nurse has been trained to help you get started . Specially trained nurses called Consultants will visit you in the hospital and give you information on positions, how to manually express, and how to store your breastmilk. You will also be given information on support systems for in the community. After you are discharged, [facility] is available to help with any problems you have while . Control Choices We understand gender is a spectrum. We may use gendered terms to talk about anatomy and health risk. Please use this information in a way that works best for you and your provider as you talk about your care. control keeps you from getting from sex. There are many types of control. Somework better than others. New types are tested all the time. Your healthcare provider can help you decide which type is best for you. But no matter which type you choose, you and your partner must useit the right way each time you have sex. Some of the most common types are below. Condom A male condom is a thin covering that fits over the penis. A female condom fits inside the vagina. A condom catches sperm that come out of the penis during sex. Spermicide Spermicide is a gel, foam, cream, tablet, or sponge. The sponge also works as a barrier with spermicide. It is put in the vagina before sex to kill sperm. Diaphragm and cervical cap A diaphragm is a round rubber cup that keeps sperm out of the uterus. A cervical cap is like it, but smaller. They also hold spermicide in place. Intrauterine device (IUD) An IUD is a small device put in the uterus by a healthcare provider. It stays in places for months or years as needed. The pill The control pill is taken daily. It has hormones that stop ovaries from releasing an egg eachmonth. Other hormones Hormones that stop an egg from being released each month from an ovary can be given in other ways. These include injection, implant, patch, or vaginal ring. Other choices Other control methods include: Male sterilization (vasectomy). This surgery ties off or cuts the tubes (vas deferens) in the testes. It's done so sperm doesn't come out in the semen released from the penis. Female sterilization. This surgery blocks or cuts the fallopian tubes. It can be done through the belly (laparoscopy) to block the tubes or to remove part or all of them. It can also be done during aC-section. Withdrawal method. This is when the penis is pulled out of the vagina before ejaculation. The failure rate for this method is high. It ranges from 22% to 28%. Fertility awareness method. This is when a person with ovaries and a uterus keeps track of their fertile days. They only have sex at times when they are not likely to get . This method is hard for people who have irregular periods. Emergency contraception (EC) Emergency contraception can help prevent after unprotected sex. Hormone pills are available over the counter to anyone. They are also known as morning after pills. A second type of EC is a copper IUD. This needs to be inserted by a trained healthcare provider. Either type of EC can be used up to 5 days after sex. But it should be used as soon as possible. The sooner it's used after unprotected sex, the more likely it is to work. EC will not work if you???re already . Things to consider Think about the below: Choose a type of control that is easy for you to use. Learn how to use your control the right way. Read the package. Follow your healthcare provider's instructions. Keep in mind that most types of control don't protect you from sexually transmitted infections (STIs). To protect against STIs, always use a latex condom. If you are allergic to latex, a non-latex condom may give you some protection.: Your Third Trimester Changes As the baby grows, your body changes, too. You may also see signs that your body is getting ready for labor. Be patient. Within a few more weeks, your baby will be born. How you are changing Your body is preparing for the of your baby. Some of the most common changes are listed below. If you have any questions or concerns, ask your healthcare provider: You???ll gain more weight from fluids, extra blood, and fat deposits. Your breasts will grow as your body gets ready to feed the baby. They may be more tender. You may also notice a slight yellow or white discharge from the nipples. Discharge from your vagina may increase. This is normal. You might see some skin color changes on your forehead, cheeks, or nose. Most of these will go awayafter you deliver. You may have symptoms such as heartburn, trouble sleeping, and some shortness of breath due to the growing fetus. Your belly button may stick out. Near term, you may feel the baby dropping or moving downward toward the pelvis. You may get hemorrhoids from pressure of the growing baby on rectal veins. How your baby is growing Month 7 Your baby can open and close their eyes and weighs around 4 pounds (1.8 kg). The baby's bones are fully formed but soft. The baby's movements are pretty forceful. The hair on your baby's body called lanugo, starts to fall off. The lungs are not fully developed, but practice breathing movements occur. Month 8 Your baby is building up body fat and weighs around 6 pounds (2.7 kg). The protective waxy coating around the baby called vernix, gets thicker. Your baby is now getting bigger and has more fat stores. Due to reduced space in the uterus, the baby's movements may become less forceful. But you will still feel the wiggles and stretches as your little one moves. Month 9 Your baby weighs nearly 7 pounds (3.2 kg) and is about 19 to 21 inches long. The baby's organs are ready to function on their own. In most pregnancies, the baby may turn into a head-down (cephalic) position for as the due date approaches. In other words, any day now... When to call your healthcare provider Seek medical help right away for any of the following: Reduced or absent movements Bleeding or excess watery discharge from the vagina Excessive swelling in your feet, legs, or other areas of your body Severe headache, nausea, rash, bleeding from any site, or yellowing of the eyes or skin Severe belly pain or contractions Fever Adapting to : Third Trimester Although common during , some discomforts may seem worse in the final weeks. Simple lifestyle changes can help. Take care of yourself. And ask your partner to help out with small tasks. Limiting leg problems Ways to combat leg issues: Wear support hose all day. Don't wear snug shoes or clothes that bind, such as tight pants and socks with elastic tops. Sit with your feet and legs raised often. Caring for your breasts Tips to follow include: Wash with plain water. Don't use harsh soaps or rubbing alcohol. They may cause dryness. Wear a nursing bra for extra support. It can also hide any leaks from your nipples. Controlling hemorrhoids Ways to prevent hemorrhoids include: Eat foods that are high in fiber. Also exercise and drink enough fluids. This will reduce constipation and hemorrhoids. Sleep and nap on your side. This limits pressure on the veins of your rectum. Try not to stand or sit for long periods. Controlling back pain As your body changes during , your back must work in new ways. Back pain has many causes. Physical changes in your body can strain your back and its supporting muscles. Also hormones increase during . This can affect how your muscles and joints work together. All of these changes can lead to pain. Pain may be felt in the upper or lower back. Pain is also common in the pelvis. Some womenhave sciatica. This is pain caused by pressure on the sciatic nerve running down the back of the leg. Ice or heat may help. Your provider may advise massage therapy or a chiropractor. Sleep on your left side with a pillow between your knees. Use a brace or support device. Ask your provider for speci fic tips and exercises to help control your back pain. Tips to help you rest Good rest and sleep will help you feel better. Here are some ideas: Ask your partner to massage your shoulders, neck, or back. Limit the errands you do each day. Lie down in the afternoon or after work for a few minutes. Take a warm bath before you go to sleep. Drink warm milk or teas without caffeine. Don't drink coffee, black tea, and cola. Stopping heartburn Don't eat spicy, greasy, fried, or acidic foods. Eat small amounts more often. Eat slowly. Wait 2 hours after eating before lying down. Sleep with your upper body raised 6 inches. Managing mood swings Ways to manage mood swings include: Know that mood changes are normal. Exercise often, but get plenty of rest. Address any concerns and limit stress. Talking to your partner, other women, or your healthcare provider may help. Dealing with urinary frequency Tips to deal with having to urinate often include: Drink plenty of water all day. But if you drink a lot in the evening, you may have to get up more in the night. Limit coffee, black tea, and cola. How daily issues affect your health Many things in your daily life impact your health. This can include transportation, money problems,housing, access to food, and child welfare social worker. If you can???t get to medical appointments, you may not receive the care you need. When money is tight, it may be difficult to pay for medicines. And living far from a grocery store can make it hard to buy healthy food. If you have concerns in any of these or other areas, talk with your healthcare team. They may know of local resources to assist you. Or they may have a staff person who can help. Reasons to Come to the Hospital or Call Your Doctor During Your Reasons to come to the hospital Contractions every 5 minutes for 1 hour if greater than 37 weeks* Contractions every 10 minutes for 1 hour if less than 37 weeks* * Time contractions from the beginning of one contraction to the beginning of the next contraction. Your water breaks Vaginal bleeding like you???re having a period No movements in 2 hours when fetus is normally active Vomiting for 24 hours Any kind of fall or car accident Any sign your blood pressure may be high or that you may have preeclampsia, such as: a headache that doesn???t go away after taking Tylenol vision problems such as flashes or spots rapid weight gain belly (abdominal pain) on your right side swelling (edema) in your face or hands: this also often happens near the end of normal pregnancies,even without preeclampsia Reasons to call your doctor Symptoms of urinary tract infection (burning with urination) Fever greater than 100.5??F by mouth Flu-like symptoms Abnormal vaginal discharge Phone Numbers [facility] (Triage): [facility]: [facility] [facility]: [facility]: [facility] [place]: [facility] [place]: What Is Group B Strep? Group B strep (streptococcus) is a common type of bacteria. It can grow in the vagina, rectum, or urinary tract. It most often does not cause harm in adults. But in rare cases, a person who has group B strep can infect the baby during . This can cause serious illness in the . But treatment during labor reduces the risk of the baby becoming infected. And if a gets group B strep, the infection can be treated. Facts about group B strep Learning more about group B strep can help you understand how testing and treatment can help. Here are some basic facts about group B strep: It's not a sexually transmitted infection. It's not the same as strep throat. (That is caused by group A strep.) It often has no symptoms. It may cause no problems in adults. Test results can be misleading. They may be negative one week and positive the next week. Group B strep can be spread to the baby during vaginal delivery. It can't be passed during (surgical) . A person with group B strep rarely infects the . (Infection happens only about 1% to 2% of the time.) When a person is treated during labor and delivery, the baby almost never becomes infected. Certain factors during increase the risk of a baby becoming infected. Possible effects on your baby Group B strep can infect the blood. It can also cause inflammation of the baby???s lungs, brain, orspinal cord. Long-term effects can include blindness, deafness, mental retardation, or cerebral palsy. And in rare cases, infection causes . Infection is most often found soon after the baby is born. How your baby may become infected Group B strep often lives in the vagina or rectum. If the amniotic sac breaks early, bacteria from the vagina can travel to the uterus, reaching the baby. Or, while passing through the canal, the baby can come in contact with the bacteria. In rare cases, group B strep can be passed to the baby after delivery. This is called late-onset group B strep. The source of this type of infection is not well-understood. But some experts believe that it happens if the baby is exposed to group B strepin the home, from the parents or siblings, or in the community. What increases the risk? Certain things increase the chance that a baby will be infected. They include: Breaking or leaking of the amniotic sac before 37 weeks of Labor before 37 weeks of Breaking of the amniotic sac more than 18 hours before labor starts Fever during labor A urinary tract infection with group B strep at any point in the Having a previous baby born with a group B strep infection Treating Group B Strep Testing and treatment of group B strep in your can help prevent your baby from becoming infected during . If your baby has complications due to group B strep, they may need special treatments. Early treatment gives the best chance of a good outcome. Testing Testing for the bacteria is painless. This is most often during weeks 36 through 37 of . For the test, your healthcare provider uses cotton swabs to take samples from your vagina and anus. These samples are sent to the lab. Your provider will get your test results about 2 days later. Results show if you have group B strep. To test for Group B strep, your healthcare provider takes swabs from your vagina and anus during a pelvic exam. Treatment If you have group B strep, you'll be treated with IV antibiotics. These are given through a flexible tube (catheter) in a vein in your arm or hand. You may be treated if you have not been tested but you have risk factors. The treatment is not done until you start labor. This lets the medicine protect your baby during and after . Group B strep can come back after treatment. So IV antibiotics are started during labor and also given during delivery. This should not affect the course of labor. If group B strep is diagnosed in your urine, you'll be given medicine at that time to protect you from infections of the urinary tract. After the , your baby will be observed in the hospital for 24 to 48 hours. This is to make sure that they have not been infected. Your baby???s blood may also be tested. In newborns, most cases of group B strep infection are found before the mother and baby go home. But in very rare cases, a baby may get a group B strep infection after going home. This is called a late-onset infection. Call your baby???s healthcare provider right away if your baby: Has a fever Is refusing to feed Seems stressed or is fussy and can???t be calmed Has breathing trouble Has a very fast, very low, or irregular heart rate Beginning to Breastfeed: Apkx-as-Ilmp What is xwyb-uf-wftu? After , your nurse will clean and dry your baby. Your baby will then be placed on your chest tutz-ez-igwy right away. Your baby???s shoulders should be against your chest, knees flexed, and headturned to the side. Your baby's head should be tilted slightly back in what is called the ???sniffing position.?? Your nurse will diaper your baby and cover you both with warm blankets. This is the best way to keep babies warm after being born. Babies are very alert right after . Your baby may actually ???crawl?? into position to breastfeed for the first time. Your baby will stay hlfu-tu-jnbn with you for as long as you like after . If you get too sleepy, let your nurse know. Only you or your partner can do dmbp-hr-ngum with your baby these first few hours. Visitors may come in, but you must not pass your baby around during this time. This could cause your baby to get cold and then sick. Rzug-so-rfwn is a great way to remind your baby how to breast feed. It is also a way to comfort a crying baby, even after you go home. But if you get sleepy, put your baby back in the crib or have your partner or family member take her or him. Falling asleep with your baby can be dangerous. Your baby might get into a position where she or he cannot breathe. Nursing your baby will help reduce your bleeding after . It also lowers your risk of depression. Being pexq-wn-upqi with your baby can help reduce your pain after delivery. How will I know if my baby is hungry? Don???t wait until your baby cries to nurse. Newborns should be nursed as soon as they show a hunger sign. Here are some common hunger signs: Being more alert or active Rooting reflex - nuzzling against your breast Lips smacking or mouth opening and closing Sucking on hand or fingers Crying How often should I feed my baby? Your baby???s stomach is the size of a small marble at . By Day 3, it is the size of a shootermarble. By Day 10, the stomach grows to the size of a ping- pong ball. This is why babies eat so often. They can only hold a little bit of food until their stomach grows. You should nurse as often and as long as your baby wants. Most babies nurse 8-12 times in 24 hours.This means they should eat at least every 3 hours. Sometimes babies cluster feed every hour as theylearn to breastfeed, or sometimes you may need to wake your baby for feedings. Babies will eat moreoften during a growth spurt, and you may think you aren???t making enough milk. But don???t worry. Y our baby will not need formula or supplements. Your body will get your baby???s message from the extra feedings and make more milk to keep your baby growing. Most newborns need a lot of sleep. If your baby fusses when feeding, don???t worry. Some babies areeasy to distract. Here are some tips to calm your baby for nursing: Choose a quiet place for feeding. Placing your baby in the otpl-xj-dhkf position on your chest. This can help your baby calm down andremember how to breastfeed. It may also help if you breastfeed in the same place in your home each time. How much attention should I give my baby? Infants can???t be spoiled. Your baby will let you know when comfort, food, or holding is needed. When you respond to your baby???s needs, you build trust. This is a time to shower your baby with love and attention. What is Rooming In? While you are in the hospital, we will try to keep your baby with you in your room 24 hours a day. We call this Rooming In. This will help you learn what your baby needs. Your nurse will help you learn to care for your baby. Consultants are specially trained nurses. They will help you with positions. They will also help you get your baby to latch on correctly. [facility] can help with any breast feeding problems after you go home. Choosing a Doctor for Baby - Video Choosing a Doctor for Baby Please use the QR Code to watch the video FAQs How often should I nurse? Feed your whenever they show signs of hunger. A general guideline is to nurse around 8 to 12 times every 24 hours, or about every 2 to 3 hours. It's important to wake newborns to nurse at least every 3 hours until they are back to their weight. Once newborns have shown that they will demand enough milk to grow adequately, they will not need to be awakened to eat. And they will oftenspace out feedings as their hunger allows them. With time and patience, you and your baby will develop your own schedule and feeding pattern. How many months should I nurse? The [place] [employer] (ACOG) and the [place] [employer] (AAP) both recommend that parents start as soon as possible after , ideally within the first hour. Research has shown that time qnrs-nd-phaj after delivery helps to encourage this. Both organizations encourage -only, with no other supplements for healthy newborns for the first 6 months of life. At 6 months, your baby may slowly start having solid foods as well. But it is advised to keep at least through your baby???s first birthday. After the first birthday, you and your baby can keep up to 2 years and beyond. Or you may choose to stop at any time. Is my baby getting enough milk? There are a few ways to check if your baby is getting enough milk. Latching on You know your baby is getting milk if you hear gulping and swallowing sounds, not just sucking. Look for your baby steadily moving their jaw open and closed as another sign of correct ???latching on.?? If the latch is painful, it's important to ask for help from a sales consultant insurance or your healthcare provider. It could be a sign that your baby is having trouble latching correctly and may not be transferring milk from your breast well. Most of the time, this issue is common and can be easilymanaged with a little help. But should not cause ongoing pain. So it is important to find a trained sales consultant insurance who can help evaluate the latch. Urine output and stool frequency You can also tell how much milk your baby is getting by keeping track of your baby???s diapers. By the end of the first week of life: Your baby should have about 1 wet diaper on day 1, and 2 wet diapers on day 2. This should increaseeach day by 1 more wet diaper, up to 6 wet diapers on day 6 and then about 6 wet diapers every day.The urine will be a pale yellow color, not dark yellow or orange. Wet diapers should stay around this amount as your breastfed baby gets older. Your baby should have 3 or 4 stools per day that are at least a teaspoon in amount (not just smears). By the 4th day of life, the early black-brown, sticky meconium stool should start to change to a greenish color, then within another day or 2 to a loose yellow stool with curds. This is a normal breastfed stool. It's not uncommon for a breastfed baby to pass stool after each feeding. In the second to fourth week of life, the number of stools can increase to about 5 per day. After 1 month, the number of stools usually lessens. It might be 1 or 2 a day. Some babies may have a day or days with no stool. In these cases, stool should be in larger amounts when passed. If you are concerned about your baby's peeing (urinating) or bowel movements, talk with your infant's healthcare provider. Weight It???s normal for your baby to lose some weight during the first 3 to 4 days of life. A baby might normally lose up to 7% to 10% of their weight during this time. After that, your baby should start gaining again. By the end of the second week, they should be back to weight. In the weeksfollowing this, they will gain about a half ounce to an ounce per day. Does my baby need vitamins? All breastfed infants should take 400 international units (IU) a day of vitamin D (infant formulation). Your healthcare provider may prescribe this. Or it may be purchased over the counter. When your baby is 6 months old, you may start to offer baby foods that contain iron. You should discuss the possible need for iron supplementation with your 's healthcare provider. What should I do if my breasts become swollen, tender, or sore? These symptoms are most often because your breasts are too full of milk (engorged). This is common when your milk first comes in or if you are making more milk than your baby is drinking. This may cause swelling and make it harder for your baby to nurse. If this happens, try the following: Keep nursing. This is a temporary condition. It gets better once you can get your baby to drink more milk. Be sure to breastfeed more often and let your baby feed until they are done. Be sure to massage your breast while feeding. This helps the breast drain as fully as possible. Express some milk before you breastfeed. Do this manually or with a breast pump. This will soften the darker area around the nipple (areola), so your baby can latch deeper to begin feeding. Use a warm compress. This can be a towel or paper diaper soaked in warm water. Or take a warm shower before feeding. Some people have found that switching off between a cold compress and a warm one gives them relief. If you feel comfortable with this, you can try it too. If you use an ice pack, wrap it in a thin towel to protect your skin. Take acetaminophen or ibuprofen for continued pain. The medicine is safe to take during . If your nipples or breasts continue to hurt, call your healthcare provider. Nipple and breast problems are urgent and need to be looked at and treated as soon as possible. When to get medical care Unless your baby???s healthcare provider advises otherwise, call the provider right away if your baby has any of these : Fever (see Fever and children below) Repeated vomiting Does not seem to be alert, refuses to nurse, or is sleeping too much, such as through feedings Has signs of fluid loss (dehydration). These include fewer wet diapers than normal or no urine for 8 hours, or the urine appears dark. Or your baby has no tears when crying, ???sunken eyes,?? or drymouth. Is losing weight or not gaining weight. Call your own healthcare provider right away if you have any of the following: Fever of 100.4??F (38??C) or higher, or as advised by your provider Redness, warmth, pain, or abnormal discharge from your breasts Such painful nipples and breasts that you want to stop nursing A hard lump in your breast Lower belly (abdominal) pain or cramping when you are not Pain or burning when you pee Unexpected vaginal bleeding or bad-smelling discharge Fever and children Use a digital thermometer to check your child???s temperature. Don???t use a mercury thermometer. There are different kinds and uses of digital thermometers. They include: Rectal. For children younger than 3 years, a rectal temperature is the most accurate. Forehead (temporal). This works for children age 3 months and older. If a child under 3 months old has signs of illness, this can be used for a first pass. The provider may want to confirm with a rectal temperature. Ear (tympanic). Ear temperatures are accurate after 6 months of age, but not before. Armpit (axillary). This is the least reliable but may be used for a first pass to check a child of any age with signs of illness. The healthcare provider may want to confirm with a rectal temperature. Mouth (oral). Don???t use a thermometer in your child???s mouth until they are at least 4 years old. Use the rectal thermometer with care. Follow the product maker???s directions for correct use. Insert it gently. Label it and make sure it???s not used in the mouth. It may pass on germs from the stool. If you don???t feel OK using a rectal thermometer, ask the healthcare provider what type to use instead. When you talk with any healthcare provider about your child???s fever, tell them which typeyou used. Below are guidelines to know if your young child has a fever. Your child???s healthcare provider may give you different numbers for your child. Follow your provider???s specific directions. Fever readings for a baby under 3 months old: First, ask your child???s healthcare provider how you should take the temperature. Rectal or forehead: 100.4??F (38??C) or higher Armpit: 99??F (37.2??C) or higher Fever readings for a child age 3 months to 36 months (3 years): Rectal, forehead, or ear: 102??F (38.9??C) or higher Armpit: 101??F (38.3??C) or higher Call the healthcare provider in these cases: Repeated temperature of 104??F (40??C) or higher in a child of any age Fever of 100.4?? F (38?? C) or higher in baby younger than 3 months Fever that lasts more than 24 hours in a child under age 2 Fever that lasts for 3 days in a child age 2 or older Beginning to Breastfeed: Gloe-io-Oujg What is qoot-av-bwhc? After , your nurse will clean and dry your baby. Your baby will then be placed on your chest mrkp-on-ipkv right away. Your baby???s shoulders should be against your chest, knees flexed, and headturned to the side. Your baby's head should be tilted slightly back in what is called the ???sniffing position.?? Your nurse will diaper your baby and cover you both with warm blankets. This is the best way to keep babies warm after being born. Babies are very alert right after . Your baby may actually ???crawl?? into position to breastfeed for the first time. Your baby will stay oawe-pw-blyo with you for as long as you like after . If you get too sleepy, let your nurse know. Only you or your partner can do hvaz-ba-rkyn with your baby these first few hours. Visitors may come in, but you must not pass your baby around during this time. This could cause your baby to get cold and then sick. Aemu-ja-wwka is a great way to remind your baby how to breast feed. It is also a way to comfort a crying baby, even after you go home. But if you get sleepy, put your baby back in the crib or have your partner or family member take her or him. Falling asleep with your baby can be dangerous. Your baby might get into a position where she or he cannot breathe. Nursing your baby will help reduce your bleeding after . It also lowers your risk of depression. Being qjra-nl-acli with your baby can help reduce your pain after delivery. How will I know if my baby is hungry? Don???t wait until your baby cries to nurse. Newborns should be nursed as soon as they show a hunger sign. Here are some common hunger signs: Being more alert or active Rooting reflex - nuzzling against your breast Lips smacking or mouth opening and closing Sucking on hand or fingers Crying How often should I feed my baby? Your baby???s stomach is the size of a small marble at . By Day 3, it is the size of a shootermarble. By Day 10, the stomach grows to the size of a ping- pong ball. This is why babies eat so often. They can only hold a little bit of food until their stomach grows. You should nurse as often and as long as your baby wants. Most babies nurse 8-12 times in 24 hours.This means they should eat at least every 3 hours. Sometimes babies cluster feed every hour as theylearn to breastfeed, or sometimes you may need to wake your baby for feedings. Babies will eat moreoften during a growth spurt, and you may think you aren???t making enough milk. But don???t worry. Y our baby will not need formula or supplements. Your body will get your baby???s message from the extra feedings and make more milk to keep your baby growing. Most newborns need a lot of sleep. If your baby fusses when feeding, don???t worry. Some babies areeasy to distract. Here are some tips to calm your baby for nursing: Choose a quiet place for feeding. Placing your baby in the thgn-tn-ykmj position on your chest. This can help your baby calm down andremember how to breastfeed. It may also help if you breastfeed in the same place in your home each time. How much attention should I give my baby? Infants can???t be spoiled. Your baby will let you know when comfort, food, or holding is needed. When you respond to your baby???s needs, you build trust. This is a time to shower your baby with love and attention. What is Rooming In? While you are in the hospital, we will try to keep your baby with you in your room 24 hours a day. We call this Rooming In. This will help you learn what your baby needs. Your nurse will help you learn to care for your baby. Consultants are specially trained nurses. They will help you with positions. They will also help you get your baby to latch on correctly. [facility] can help with any breast feeding problems after you go home. Chestfeeding If you are a transgender or gender nonbinary parent or an adoptive parent, you may be wondering if you will be able to chestfeed your baby. Each person???s situation is different. But it is often possible to produce milk, even if you are not the parent. You may also be able to chestfeed at least partly, even if you have had certaintypes of chest (top) surgery. The process to create a milk supply is called inducing . It???s important to have healthcare providers to guide you through this. Talk with your provider. And talk with a sales consultant insurance who has worked with trans and gender nonbinary people to support chestfeeding. They can help you and advise you. Why might I want to chestfeed? Chestfeeding may be an option in many situations. These can include: You are transgender or gender nonbinary and not the parent You are in a same-sex relationship and not the parent You are adopting a baby Your baby is being born by surrogacy Can I chestfeed even if I haven't given ? Yes. A person does not need to be or give to be able to have a milk supply and to chestfeed. Everyone has mammary glands and the hormones (prolactin and oxytocin) that are needed to make milk. But each person???s ability to produce milk is different. How much milk you can make may depend on any chest or nipple surgeries you have had. And on any hormone treatments you have had. You won???t know how much milk you can make until you try. This is whyit???s important to talk with a sales consultant insurance. They can review your health history, answer your questions, and advise you on a plan to help you create a milk supply. Creating a milk supply: inducing Inducing is done by stimulating and emptying the breasts. It will take some work and someeffort to build up a milk supply. Your sales consultant insurance will work closely with you. You will likely need to try a combination of: Breast stimulation. Breast stimulation triggers the hormones that affect milk production. This may be done by using a breast pump or stimulating your nipples by hand. Your sales consultant insurance will advise you on how often and for how long to pump. They will also show you how to express milk by hand. Once your baby is here, you can have them suckle at your breast. Hormone therapy. This often means taking estrogen and progesterone supplements. Trans women may be advised to take androgen suppressant therapy. Medicines and herbs (galactagogues). Certain medicines and herbs can help start and maintain milk production. Your will advise you on this. Induced takes planning, commitment, and support. Your sales consultant insurance can talk with you about your options. It is helpful to start the process a few months before the baby arrives. What are some issues that may affect my milk supply? Your personal history impacts your ability to chestfeed. Each person???s history as a trans or gender nonbinary person is different. So it???s important to work with a sales consultant insurance who understands your personal situation and the issues that may affect you. Things that may affect milk supply for trans men include: Having chest or nipple surgery. If you are a trans man and have had chest surgery, some of your mammary glands were removed. This means your milk supply may be reduced. But you may still be able to produce some milk. This will depend on the type of chest or nipple procedure you had. Taking testosterone. Taking the male hormone testosterone may reduce your milk supply. Trans women may also be able to create a milk supply. They may need to take androgen suppressant therapy to stop testosterone from working. They may also need to take female hormones. What are some other options if I don't produce enough milk? If you have a low milk supply but still want to feed your baby by chestfeeding, you can try: Using a supplemental nursing system (SNS). A nursing supplementer is a small bag or bottle that holds milk. The milk flows from the bag or bottle through a tiny feeding tube that is placed by your nipple. Your baby suckles at your nipple and receives milk through the feeding tube. This can also help increase your milk supply. Using donor milk. Donor milk is available from human milk echavarria. Your sales consultant insurance can helpyou learn more about finding and using donor milk. You can feed this to your baby using an SNS or by bottle feeding. Using formula. Supplementing with formula is also an option. This can be done by using an SNS or bybottle feeding. Beyond nutrition: The many benefits of chestfeeding Even if your milk supply is low, you and your baby can still enjoy many benefits from chestfeeding.After all, chestfeeding is not only about nutrition. The time you spend snuggling together with likd-ke-sdut contact is special and can: Help you mirza with your baby Help your baby go to sleep Help ease your baby???s pain Promote your baby???s sucking reflex Holds Wkmi-ii-Hmhy : Latch On Ikiy-ln-Fylh Expressing Breastmilk Work, school, or even a late-night movie can require you to be away from your baby. This doesn???t mean you have to give up . You can transfer milk from your breast to a bottle. This is called expressing. But remember, wait until your baby is at least 4 weeks old to use bottles or pacifiers. This is so your baby can get used to your natural nipple first. Always wash your hands before expressing. Stimulating Letdown Gently massage your breast to stimulate the milk flow. Start under the arm and move around the entire breast. If you???re at home, taking a warm shower might help if you are engorged. If you???re away from your baby, looking at your baby???s picture can help your milk let down Expressing by Hand or by Pump Your sales consultant insurance or other healthcare provider can help you choose the best method for yourneeds. Expressing by hand Expressing by hand reduces pressure in swollen or leaky breasts. Wash your hands well with warm soap and water. Cup your breast with the palm underneath and thumb on top about 1 1/2 inches from the base of the nipple. You may have to move your fingers to find the best spot for milk flow. Press your fingers in toward your chest wall. While applying inward pressure compress the thumb and index finger together. Relax so the milk ducts refill and compress again (squeeze and release). Let the milk spray into a wide-mouth container, such as a bowl. Milk will come out of the nipple from a few openings at once. Pour the milk into a storage container. In the hospital, there may be small drops. You may be able to use a spoon to collect the milk. Move your hand around your breast to squeeze the milk from different areas and switch breasts several times. Expressing by pump A pump works by suction and is the fastest way to express milk once your milk comes in. Pumps come in manual, battery-operated, and electric styles. To protect your breasts, follow the instructions that come with your pump. Wash your hands well with warm soap and water. Center the pump around the nipple. Start on low suction with quick action. This is like a baby's quick sucking at the start of . When the milk start to come out faster, slow down the pump speed. Slowly increase the suction to a comfortable level. Plan to pump 15-20 minutes on each breast to stimulate your milk supply. Once your milk is in, pumpuntil empty. Your breasts should feel softer after pumping. Working and Talk to your partner or childcare provider about timing when to give bottles of breastmilk. It???s best if your baby is ready to breastfeed when you return from work. Express milk during breaks. This helps protect your milk supply. It also helps prevent engorged or leaking breasts. Arrange to breastfeed at lunch if your childcare is nearby. Breastfeed before you leave for work and soon after you return home. Breastfeed at night and on weekends. Your baby can have bottled breastmilk during the day. Storing Expressed Milk You can express your milk and store it in clean containers. Your family or a sitter can feed it to the baby. This way, your baby gets the benefits of your milk even when you can't be there at feedingtime. The guidelines below are based on guidelines from the CDC and the [place] [employer] (AAP). Type of storage Details about storage Storage times Room temperature At room temperature (up to 78??F or 26??C) Tip: Keep the container clean, covered, and cool. Up to 4 hours Refrigerator In a refrigerator (less than 39??F or less than 4??C) Tip: Place milk in the back of the main section of the refrigerator. Up to 4 days Freezer In a freezer (0??F or -17??C) Tip: Store milk toward the back of the freezer. Never refreeze milk after it has been thawed. Once it is thawed, use right away or refrigerate no longer than 24 hours. 6 months is best; up to 12 months is acceptable if stored in deep freezer at -4??F (-20??C) or colder Guidelines for milk storage Always use a clean container to collect and store milk. Never pour warm expressed milk into a bottle with cold milk. And be sure to label and date each bottle or bag of milk. To store milk safely, see the chart above. Warming stored milk Thaw frozen milk in the refrigerator or in a bowl of warm water. It???s a good idea to warm refrigerated milk before using it. For your baby???s safety: Use the oldest milk first. Warm a container of milk by putting it in a bowl of warm (not hot) water for a few minutes. Or use a bottle warmer set on low. Gently swirl the milk to mix it. Then place a few drops on your wrist. The milk should be near roomtemperature. Don???t put the milk in a microwave. This could create pockets of hot liquid that can burn your baby???s mouth. Caring for Your Breast Pump Attachments: In the Hospital and at Home It is important to keep your breast pump attachments (parts) clean. This protects your baby from bacteria both in the hospital and once you are home. The Center for Disease Control (CDC) recommends you do the following: While in the hospital: Wash your hands before using your pump. Make sure the outside of your pump is clean. You will need 2 basins. Use a basin to wash parts to your pump. Use another basin to hold the partswhile they air dry. Your nurse or counselor will show you which parts you must wash. After each use, separate the pump parts and rinse them under running water. Do not put them directly in the sink! Clean the pump parts as soon as possible after each use. Use hot, soapy water in a wash basin that you use only for washing them. Rinse them in fresh water. Don???t put them back in the same wash basin. To dry the parts, place a clean washcloth in a separate basin. Let the parts air dry. If the parts are still wet when you need to use them, use a new clean washcloth to dry them. Do not use the same washcloth they were on to air dry. This could spread germs. Rinse the wash basin and allow it to air dry. Use new wash basins each day. Sterilize pump parts once a day. While at home: Wash your hands before using your pump. Make sure the outside of your pump is clean. Follow the candy bar attendant???s instructions on which parts to clean. Wash pump parts after each use. You may use a door to door sales representative to clean your pump parts. Place the setting on hot water and heated drying cycle or sanitize cycle. Place the parts on the upper rack. Be sure to wash your hands before taking them out of the door to door sales representative. Let them air dry if not already dry. Or you may boil the parts if you do not have a door to door sales representative. Place the parts in a clean avila with fresh water. Then place the avila on the stove to bring the pump parts to a rolling boil. Boil them for 1-[address] parts on a clean washcloth to air dry. If the parts are still wet when you need to use them, use a new clean washcloth to dry them before using. Store the pump parts in a clean, protected place once they are fully dry. Nutrition While Do I need a special diet for ? You don't have to eat a special diet to make enough milk for your baby. Your milk will be good quality for your baby no matter what you eat. But your body needs fuel to make breastmilk. People who are need about 500 extra calories per day. Some people might need more. Other people might need less. So eat your fill of a variety of healthy foods. A healthy diet A healthy diet is important for all people who are nursing and offers many benefits to a new parent. When choosing foods, use the chart below as a guide. Bread, cereal, rice, and pasta Vegetables Fruit Milk, yogurt, and cheese Meat, poultry, fish, dry beans, eggs, and nuts Fats, oils, and sweets (in small amounts) What???s good for you? Here are some things to do: Drink fluids when you feel thirsty. There is no specific amount of water you need to drink to make enough milk. Follow healthy eating guidelines. Snack on fruit or low-fat dairy foods if you???re hungry between meals. If your healthcare provider advises it, keep taking vitamins. Get plenty of rest. What???s not good for you? Here are other things to consider: Limit fatty foods and foods that are high in sugar. This includes foods like cookies and cakes. Be aware that what enters your body may pass into your breastmilk. Limit caffeine. It's not just in coffee. It's also in cola, tea, and chocolate. Limit the amount of fish you eat that may contain mercury. This includes tuna and swordfish. Talk with your healthcare provider before taking any medicines. It's important to let your healthcare provider know that you are nursing. Some medicines are not safe when you are . Remember: Alcohol, cigarettes, and drugs pass into your breastmilk. Talk with your healthcare provider if you are using alcohol, smoking, or using drugs. Your provider wants to help you and your babybe as healthy as possible. , Plugged Ducts, and Mastitis What is a plugged duct? This means that a place where milk should flow from inside the breast is blocked. There are a few signs of this: You may notice a lump or hard spot in your breast that feels tender. The area may feel tender with no lump. The milk supply in the breast with a plugged duct may decrease. What is mastitis? Mastitis is an inflammation of the breast. It may be caused by blockage, infection, or allergy. Thesigns may be the same as for a plugged duct, but they are often more intense. They can include fever, chills, and flu-like symptoms. Your breast may also develop red streaks. Should I stop nursing if I have a plugged duct or mastitis? No. Continue to nurse often, at least every 2 hours. How can I treat plugged ducts or mastitis? Use warm compresses or a hot shower before you nurse. Massage your breast toward the nipple. Nurse on the affected breast. Change the position you nurse in - use side-lying position to let gravity help drain your breast. This may dislodge the plug. Pump or use hand-expression after you nurse. This will help drain your breast so you can heal faster. Use cold compresses between feedings for pain. You may take Ibuprofen or Acetaminophen for pain. When should I call the doctor? Call your doctor right away if you have any of these: Fever greater than 101??F Red streaks from the affected area of your breast Fever and chills, or flu-like symptoms. What is [facility]? Clinic visits: [facility] is here to help moms who are . During your visit, you should expect: We will weigh your baby. A at home independent call center agent will check your baby. A sales consultant insurance will be here to answer questions, watch feeding, and provide resources. Location: The clinic is inside the [facility]. It is on the second floor [facility]: [facility] [place] [address]. Hours: Monday-Monday, 12:45 p.m.-3:20 p.m. For an appointment: Call [phone]. Community Resources Consulting [facility] [address] [place] [address] Care with Nan www.lactationcarewithInnovation [facility] [place]th.DeviceAuthority Helplines [facility] 24 hour Helpline [facility] Services Online Resources Asurintdroplets.DeviceAuthority med.[place]/newborns/professional-education/.html [facility] [address] [place] [id number] Support Groups Ariadna Bustos (MAKI) [facility] meets on the last Monday of each month from 10-11AM. Meetings are held at the [facility]. [address] [place] [address] ([place]) Facebook group: [place], [place] [facility] Group Meetings are monthly. Call or go online to register. www.[employer] Breast Pump Coverage Below are medical supply options to buy double electric breast pumps. Please check with your insurance carrier, as some coverage has changed. You might be able to order a pump 30-60 days before your due date. [employer]: ([facility]ly [facility] and [employer]'s) [facility] covers: Medela Pump N Style Starter Kit 100%, Spectra II 100% superannuation clerk at: Krish Vargas [address] [place], [place] [employer] Website: www.Pikum or Email: [email or web address] [facility] covers: Ameda Finesse, Medela Pump N Style Starter Kit, Spectra S II, Lansinoh Smart Pump. Ships within 30 days of due date [employer] [facility]: www.momsgetmore.DeviceAuthority Provides Hygeia pumps only (double electric closed system). Text PUMP to for eligibility. [facility] Approved Mommy Express Website: www.mommyexpress.com or info@mommyCitymapper Limited.com [facility] covers: 100% for AmJosiane See 2 Upgrades available: $25 fee for Medela Max Ozzie, $55 fee for Spectra S II Delivers to your home Pumps for Mom ([facility]) Office: Email: [email or web address] Also carries support garments for and [employer] Medical Supplies Website: https://www.MaxcytepPromisec.DeviceAuthority Office: * Progress Notes - Kaitlyn Richter MD - 10/24/2024 9:45 AM EDT [facility] Follow Up Subjective Whitney Presley is seen today for a follow up visit. Her is complicated by tachycardia and arrhythmia, significant electrolyte abnormalities, and hx of cone and leep. Recently admitted 10/17-10/20 for severe electrolyte derangements causing bigeminy and PVCs. Feeling normal movement. No VB of LOF. Objective Visit Vitals BP 101/61 (BP Location: Left arm, Patient Position: Sitting, BP Cuff Size: Adult) Pulse 80 Temp (!) 36.2 ??C (97.2 ??F) (Tympanic) Resp 20 Wt Readings from Last 1 Encounters: 10/24/24 70.4 kg (155 lb 3.3 oz) Current BMI:: Body mass index is 26.64 kg/m??. Physical Exam OBGyn Exam Constitutional: No [...] areas. Psychiatric: Mood and affect were normal. FHT: 130s-140s Assessment/Plan care PNC: Brandan with primary OB Dr Marin in [facility] O+/RI/HCV-/HIV- Needs HBV and syphilis G/C [...] normal dopplers Plan: Plan for TOLAC PPBC BTDirk, KMChrissie signed 09/23/24, copy in chart S/p ANCS 10/11-10/12 for pre-term contractions Desires low dose pitocin and early AROM for delivery planning, prefers to avoid epidural if possible Intrauterine Growth Restriction US 10/14: ANURADHA nml, EFW 9%, AC 16%, normal umbilical artery dopplers Plan: -Twice weekly NSTs, weekly ultrasounds with Doppler -Declined NST in clinic today 10/24 as she is getting one in afternoon clinic with regular OB Hypokalemia Hypomagnesemia Proteinuria History of hypokalemia in [...] Had tachycardia and arrhythmia during admission to [facility] on 09/19 HR to 170s-180s with standing, associated CP and SOA ECHO during this admission showed LVEF 55% with mild mitral and tricuspid regurg per patient report Was not started on medications Cardiology: seen 09/26, s/p Holter monitor suggestive of sinus tachycardia, discussed syncopal episodes likely vasovagal, holding on Metoprolol due to patient comfort/shared decision making Plan: -Tele during labor per cardiology Intrahepatic Cholestasis of 10/12: 81 AST---10/14: AST 161, ALT 92---10/19 ALT 48, AST 35 -10/03: Bile acids 14 -On Ursodiol 900 mg TID, significant itching Plan: -Continue Ursodiol History of cone History of LEEP CL 06/25 3.3cm CL 07/05 3.2cm CL 07/22 3.7cm CL 08/19: 3.9cm Plan: Per primary, her recent SVE was 2cm / 30% effaced Delivery Planning in G1 and G2 CS G3 for bradycardia, emergent x2 PPT [id number] Plan: Plan for TOLAC PPBC BTL, KMA signed 09/23/24, copy in chart S/p ANCS 10/11-10/12 for pre-term contractions Desires low dose pitocin and early AROM for delivery planning, prefers to avoid epidural if possible. -IOL scheduled 10/31 at 0800 at 35w4d for maternal indication--significant electrolyte derangements causing cardiac arrhythmia. RTC: /as needed Kaitlyn Richter MD PGY-2, Obstetrics and Gynecology [facility] Cosigned by Laury Cruz MD at 10/24/2024 10:52 AM EDT Associated attestation - Laury Cruz MD - 10/24/2024 10:52 AM EDT I saw and evaluated the patient with the resident/fellow. I discussed the case with the resident/fellow and agree with the findings and plan as documented. documented in this encounter Plan of Treatment Upcoming Encounters Date Type Department Care Team ([facility] st Contact Info) Description 11/21/2024 11:15 AM EDT Visit Medical Office Building Obstetrics and Gynecology [address], [address] [place] [address] Nneka Gipson MD [address] [place] [id number] 12/25/2024 1:00 PM EST Office Visit official.fm [facility] Nephrology, Bone & Mineral Metabolism [address], [address] [place] [address] Scheduled Orders Name Type Priority Associated Diagnoses Orde r Schedule Labor Induction Procedures Routine Supervision of high risk , antepartum 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), sequela Expected: 10/31/2024, Expires: 11/24/2024 Blood Culture (Aerobic/Anaerobet Set) Microbiology Routine 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), sequela Expected: 10/24/2024 (Approximate), Expires: 04/27/2026 Blood Culture (Aerobic/Anaerobet Set) Microbiology Routine 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), sequela Expected: 10/24/2024 (Approximate), Expires: 04/27/2026 documented as of this encounter Procedures Procedure Name Priority Date/Time Associated Diagnosis Comments POCT URINALYSIS DIPSTICK Routine 10/24/2024 10:13 AM EDT Supervision of high risk , antepartum documented in this encounter Results * (ABNORMAL) POCT Urinalysis Dipstick (10/24/2024 10:13 AM EDT) POCT Urine Color Yellow POCT Urine Clarity Clear POCT Glucose Urine Negative Negative mg/dL POCT Bilirubin, Urine Negative Negative POCT Ketones, Urine Negative Negative mg/dL POCT Specific Crawford, Urine 1.015 POCT Blood, Urine Negative Negative POCT pH, Urine 8.5(A) 5.0 to 8.0 POCT Protein, Urine Trace(A) Negative mg/dL POCT Urobilinogen, Urine 0.2 0.2, 1 E.U./dL POCT Nitrite, Urine Negative Negative POCT Leukocyte Esterase, Urine Negative Negative Test Strip Lot Number [id number] Test Strip Lot Expiration 08/2025 Urine Urine specimen obtained by clean catch procedure / Unknown 10/24/2024 10:13 AM EDT Laury Cruz MD POINT OF CARE TEST ENTER/EDIT ORDERABLES Final Result documented in this encounter Visit Diagnoses Diagnosis Supervision of high risk , antepartum- Primary 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), 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 Hypokalemia Hypopotassemia Cardiac arrhythmia, unspecified cardiac arrhythmia type Cholestasis during in third trimester documented in this encounter Additional Health Concerns Assessment Noted Time PHQ-9 Depression Total Score: 0 10/25/19 7:52 AM EDT A fall risk assessment has been complete d for the patient 10/24/2024 7:53 AM EDT A Body Mass Index follow-up plan has been documented for the patient 10/24/2024 10:52 AM EDT documented as of this encounter Care Teams Candy Waffle Assembler Relationship Specialty Start Date End Date Norma Friedman APRN [address] [place] [id number] PCP - General 09/23/24 Lizz Trinh, RN [facility] Registered Nurse Cardiology 09/26/24 documented as of this encounter
--- OUTSIDE RECORDS SUMMARY | 2024-11-04 08:16 | XMS_ITS | Clinical Summary ---
Author Organization [facility] [place] [address] Phone Care Team Providers Care Type Copyist Name Role Phone Unavailable Primary Care Provider [...] migh t be different from the original. [facility] - Edwardo Ojeda MD Interventional Pain Protocol: NS Appt 03/29/22 Letter Sent Maxime report completed (EVERY 3 MONTHS) ( 03/23/22) Pharmacy: [facility] [address] [place] [phone] [phone] [facility] south - [phone] No known active problems Social History Tobacco [...] patient's age to complete this topic Insurance [employer] [facility] [address]
--- OUTSIDE RECORDS SUMMARY | 2024-11-04 08:16 | XMS_ITS | Encounter Summary ---
Author Organization Healthcare Address [address] [place] [address] Care Team Providers Care Door Paneler Name Role Phone Norma Friedman JOLENE Primary Care Provider +1- [phone] Lizz Trinh RN Unavailable Unavailable Encounter Details Date Type Department Care Team (Late Contact Info) Description 07/22/2024 Community [facility] Community Practice [address] [place] [address] Sandy Cardenas MD [address] [facility] [address] [place] [address] Social History Tobacco Use Types Packs/Day Years [...] Department Care Team (Late Contact Info) Description 11/21/2024 11:15 AM EDT Visit Medical Office Building Obstetrics and Gynecology [address] [facility], [address] [place] [address] Nneka Gipson MD [address] [place] [address] 12/25/2024 1:00 PM EST Office Visit Professional [facility] Nephrology, Bone & Mineral Metabolism [address] [facility], [address] [place] [address] documented as of this encounter Visit Diagnoses Not on filedocumented in this encounter Additional Health Concerns Infection Onset Date Last Indicated Resolved Time COVID-19 Rule-Out 10/17/2024 10/17/2024 10/19/2024 1:56 AM EDT Respiratory Rule-Out 10/17/2024 10/17/2024 025 11:23 PM EDT documented as of this encounter Care Teams Door Paneler Relationship Specialty Start Date End Date Norma Friedman APRN [address] [place] [address] PCP - General 09/23/24 Lizz Trinh, RN [facility] Registered Nurse Cardiology 09/26/24 documented as of this encounter
--- OUTSIDE RECORDS SUMMARY | 2024-11-04 08:17 | XMS_ITS | Encounter Summary ---
Author Organization Healthcare Address [address] [place] [address] Care Team Providers Care Java Security Architect Name Role Phone Norma Friedman JOLENE Primary Care Provider +1- [phone] Lizz Trinh RN Unavailable Unavailable Encounter Details Date Type Department Care Team (Latest Contact Info) Description 10/30/2024 Travel Social History Tobacco Use Types Packs/Day [...] more drinks on one occasion? Never 09/23/2024 [place] Depression Scale Answer Date Recorded [place] Depression Scale Total 0 09/23/2024 The thought [...] [facility], [address] [place] [address] Nneka Gipson MD [address] [place] [address] 12/25/2024 1:00 PM EST Office Visit [facility] [employer] [place] Nephrology, Bone & Mineral Metabolism [address] [facility], [address] [place] [address] documented as of this encounter [...] documented as of this encounter Care Teams Java Security Architect Relationship Specialty Start Date End Date Norma Friedman, JOLENE [address] [place] [address] PCP - General 09/23/24 Lizz Trinh, RN [facility] Registered Nurse Cardiology 09/26/24 documented as of this encounter
--- OUTSIDE RECORDS SUMMARY | 2024-11-04 08:18 | XMS_ITS | Encounter Summary ---
Author Organization Healthcare Address [address] [place] [address] Care Team Providers Care Volcanologist Name Role Phone Norma Friedman JOLENE Primary Care Provider +1- [phone] Lizz Trinh RN Unavailable Unavailable Encounter Details [...] more drinks on one occasion? Never 09/23/2024 [place] Depression Scale Answer Date Recorded [place] Depression Scale Total 0 09/23/2024 The thought [...] Upcoming Encounters Date Type Department Care Team ([facility] st Contact Info) Description 11/21/2024 11:15 AM EDT Visit Medical Office Building Obstetrics and Gynecology [address] [facility], [address] [place] [address] Nneka Gipson MD [address] [place] [address] 12/25/2024 1:00 PM EST Office Visit [facility] Nephrology, Bone & Mineral Metabolism [address] [facility], [address] [place] [address] documented as of this encounter [...] documented as of this encounter Care Teams Volcanologist Relationship Specialty Start Date End Date Norma Friedman APRN [address] [place] [address] PCP - General 09/23/24 Lizz Trinh, RN [facility] Registered Nurse Cardiology 09/26/24 documented as of this encounter
--- OUTSIDE RECORDS SUMMARY | 2024-11-04 08:19 | XMS_ITS | Encounter Summary ---
Author Organization Healthcare Address [address] [place] [address] Care Team Providers Care Dba Manager Name Role Phone Norma Friedman JOLENE Primary Care Provider +1- [phone] Lizz Trinh RN Unavailable Unavailable Encounter Details Date Type Department Care Team (Late st Contact Info) Description 10/16/2024 Results Follow-Up [facility] [place] [address] [facility]. [address] [place] [address] Nneka Block MD [address] [place] [address] Social History Tobacco Use Types [...] more drinks on one occasion? Never 09/23/2024 [place] Depression Scale Answer Date Recorded [place] Depression Scale Total 0 09/23/2024 The thought [...] (Lifetime) No 4:00 PM EDT Tex Harman, BRIT documented as of this encounter Plan of Treatment Upcoming Encounters Date Type Department Care Team ([facility] st Contact Info) Description 11/21/2024 11:15 AM EDT Visit Medical Office Building Obstetrics and Gynecology [address] [facility], [address] [place] [address] Nneka Gipson MD [address] [place] [address] 12/25/2024 1:00 PM EST Office Visit [facility] Nephrology, Bone & Mineral Metabolism [address] [facility], [address] [place] [address] documented as of this encounter [...] documented as of this encounter Care Teams Dba Manager Relationship Specialty Start Date End Date Norma Friedman APRN [address] [place] [address] RAFAELA Shin [id number] PCP - General 09/23/24 Lizz Trinh, RN [facility] Registered Nurse Cardiology 09/26/24 documented as of this encounter
--- OUTSIDE RECORDS SUMMARY | 2024-11-04 08:20 | XMS_ITS | Clinical Summary ---
Author Organization [facility] Address [address] [place] [address] Care Team Providers Care Record Cutter Name Role Phone Unavailable Primary Care Provider Unavailabl e Source Comments [facility] is fully rolled out with thefollowing exceptions:General Clinical Research [facility] Social History Tobacco Use Types Packs/Day [...]
--- OUTSIDE RECORDS SUMMARY | 2024-11-04 08:20 | XMS_ITS | Encounter Summary ---
Author Organization Healthcare Address [address] [place] [address] Care Team Providers Care Double End Sewer Name Role Phone Norma Friedman JOLENE Primary Care Provider +1- [phone] Lizz Trinh RN Unavailable Unavailable Encounter Details [...] more drinks on one occasion? Never 09/23/2024 [place] Depression Scale Answer Date Recorded [place] Depression Scale Total 0 09/23/2024 The thought [...] Upcoming Encounters Date Type Department Care Team ([facility] st Contact Info) Description 11/21/2024 11:15 AM EDT Visit Medical Office Building Obstetrics and Gynecology [address], [address] [place] [address] Nneka Gipson MD [address] [place] [address] 12/25/2024 1:00 PM EST Office Visit [facility] Nephrology, Bone & Mineral Metabolism [address], [address] [place] [address] documented as of this encounter [...] documented as of this encounter Care Teams Double End Sewer Relationship Specialty Start Date End Date Norma Friedman APRN [address] [place] [address] PCP - General 09/23/24 Lizz Trinh, RN [facility] Registered Nurse Cardiology 09/26/24 documented as of this encounter
--- OUTSIDE RECORDS SUMMARY | 2024-11-04 08:20 | XMS_ITS | Encounter Summary ---
[facility] Address [address] [place] [id number] Care Team Providers Care Jail Keeper Name Role Phone Ivyashlyn Valentinoseven JOLENE Primary Care Provider + [phone] Encounter Details Date Type Department Care Team (Late st Contact Info) Description 06/26/2024 Results Follow-Up [facility] OBGYN [address] [address] Koby Roberts MD [address] [place] [address] Social History Tobacco Use Types Packs/Day Years Used Date Smoking Tobacco: Never Smokeless Tobacco: Never Alcohol Use Standard Drinks/Week Comments Never 0 (1 standard drink = 0.6 oz pur e alcohol) [facility] Utilities Answer Date Recorded In the past 12 months has [employer], gas, oil, or water [employer] threatened to shut off services in your [...] Not hard at all 05/28/2024 [facility] [place] of Occupat ional Health - Occupational Stress [...] GED or equivalent No 05/28/2024 Preferred Language Israeli 05/28/2024 PHQ-2 Answer Date Recorded Patient Health [...] Visit [facility] GASTROENTEROLOGY [address] [address] Robbin Escalante MD [address] [address] documented as of this encounter Visit Diagnoses Not on filedocumented in this encounter Additional Health Concerns Assessment Noted Time PHQ-2 Depression Total Score: 2 05/28/19 25 4:39 PM EDT documented as of this encounter Care Teams Jail Keeper Relationship Specialty Start Date End Date Norma Friedman APRN [address] [place] [place]FA[place] APPIAH [address] PCP - General Family Medicine 05/14/24 documented as of this encounter
--- OUTSIDE RECORDS SUMMARY | 2024-11-04 08:22 | XMS_ITS | Encounter Summary ---
Author Organization Healthcare Address [address] [place] [address] Care Team Providers Care Bow Repairer Custom Name Role Phone Norma Friedman JOLENE Primary Care Provider +1- [phone] Lizz Trinh RN Unavailable Unavailable Encounter Details [...] more drinks on one occasion? Never 09/23/2024 [place] Depression Scale Answer Date Recorded [place] Depression Scale Total 0 09/23/2024 The thought [...] 1 Month) No 025 4:00 PM EDT Txe Harman, RN 2. Non-Specific Active Suici mike [...] [address] [facility], [address] [place] [address] Nneka Gipson MD [address] [place] [address] 12/25/2024 1:00 PM EST Office Visit [employer] [place] Nephrology, Bone & Mineral Metabolism [address], [address] [place] [address] documented as of this encounter [...] documented as of this encounter Care Teams Bow Repairer Custom Relationship Specialty Start Date End Date Norma Friedman, CAT WAGON OPERATOR [address] [place] [address] PCP - General 09/23/24 Lizz Trinh, RN [facility] Registered Nurse Cardiology 09/26/24 documented as of this encounter
--- OUTSIDE RECORDS SUMMARY | 2024-11-04 08:22 | XMS_ITS | Encounter Summary ---
Author Organization Healthcare Address [address] [place] [address] Care Team Providers Care Warehouse Logistics Coordinator Name Role Phone Norma Friedman JOLENE Primary Care Provider +1- [phone] Lizz Trinh RN Unavailable Unavailable Reason for Visit * Reason Onset Date Comments [facility] Care coordiantion 10/17/2024 Encounter Details Date Type Department Care Team ([facility] st Contact Info) Description 10/17/2024 Telephone Medical Office Building Obstetrics and Gynecology [address], [address] [place] [address] Tracy Segovia, RN [facility] OB ULTRASOUND CLINIC 1st [facility] Care coordiantion Social History Tobacco Use [...] more drinks on one occasion? Never 09/23/2024 [place] Depression Scale Answer Date Recorded [place] Depression Scale Total 0 09/23/2024 The thought [...] reviewed that Whitney was seen today by [facility],she had a non reactive NST, and BPP 6/8 ( breathing not seen). Discussed that Whitney declined presenting to [facility] for extended monitoring today or returning to our clinic tomorrow (10/18/24) for a repeat NST. Whitney is agreeable for do an NST with her local OB provider as she is already scheduled for an infusion with their office. Qi agreeable to schedule patient for NST on10/18/24. Offered to send notes from today's appointment, Qi provided me with her office's fax# ([phone]). No additional questions at this time. documented in this encounter Plan of Treatment Upcoming Encounters Date Type Department Care Team (Late st Contact Info) Description 11/21/2024 11:15 AM EDT Visit Medical Office Building Obstetrics and Gynecology [address], [address] [place] [address] Nneka Gipson MD [address] [place] [address] 12/25/2024 1:00 PM EST Office Visit [facility] [place] Nephrology, Bone & Mineral Metabolism [address], [address] [place] [address] documented as of this encounter Visit Diagnoses Not on filedocumented in this encounter Additional Health Concerns Assessment Noted Time A fall risk assessment has been complete d for the patient 09/26/2024 8:15 AM EDT A Body Mass Index follow-up plan has been documented for the patient 10/20/2024 9:52 AM EDT documented as of this encounter Care Teams Warehouse Logistics Coordinator Relationship Specialty Start Date End Date Norma Friedman APRN [address] [place] [address] PCP - General 09/23/24 Lizz Trinh, RN [facility] Registered Nurse Cardiology 09/26/24 documented as of this encounter
--- OUTSIDE RECORDS SUMMARY | 2024-11-04 08:22 | XMS_ITS | Encounter Summary ---
Author Organization Healthcare Address [address] [place] [address] Care Team Providers Care Prison Guard Name Role Phone Norma Friedman JOLENE Primary Care Provider +1- [phone] Lizz Trinh RN Unavailable Unavailable Encounter Details Date Type Department Care Team ([facility] Contact Info) Description 10/17/2024 Telephone Medical Office Building Obstetrics and Gynecology [address], [address] [place] [address] Tracy Segovia, RN [facility] OB ULTRASOUND CLINIC 1st [facility] Social History Tobacco Use Types Packs/Day [...] more drinks on one occasion? Never 09/23/2024 [place] Depression Scale Answer Date Recorded [place] Depression Scale Total 0 09/23/2024 The thought [...] from Brandee at Dr. Ramon's office in [place], she was calling because Whitney is notscheduled [...] ED for evaluation. I contacted Brenda OB regulatory compliance coordinator with report on expectant patient. Message sent to Dr. Wheeler with patient update. documented in this encounter Plan of Treatment Upcoming Encounters Date Type Department Care Team (Late st Contact Info) Description 11/21/2024 11:15 AM EDT Visit Medical Office Building Obstetrics and Gynecology [address], [address] [place] [address] Nneka Gipson MD [address] [place] [address] 12/25/2024 1:00 PM EST Office Visit [employer] [place] Nephrology, Bone & Mineral Metabolism [address], [address] [place] [address] documented as of this encounter Visit Diagnoses Not on filedocumented in this encounter Additional Health Concerns Assessment Noted Time A fall risk assessment has been complete d for the patient 09/26/2024 8:15 AM EDT A Body Mass Index follow-up plan has been documented for the patient 10/20/2024 9:52 AM EDT documented as of this encounter Care Teams Prison Guard Relationship Specialty Start Date End Date Norma Friedman APRN [address] [facility] [place] [address] PCP - General 09/23/24 Lizz Trinh, RN [facility] Registered Nurse Cardiology 09/26/24 documented as of this encounter
--- OUTSIDE RECORDS SUMMARY | 2024-11-04 08:24 | XMS_ITS | Encounter Summary ---
Author Organization [facility] Address [address] [place] [id number] Care Team Providers Care Parking Regulation Enforcement Officer Name Role Phone IvyKade goldbergjoseseven JOLENE Primary Care Provider + [phone] Encounter Details Date Type Department Care Team (Late st Contact Info) Description 09/26/2024 Documentation [facility] [address] [place] [address] Christy Zabala, RN Social History Tobacco Use [...] heating? Not hard at all 05/28/2024 [facility] [place] of Occupat ional Health - Occupational Stress [...] Review of chart reveals patient [facility] to [facility] to continue care. Will plan to review chart around EDC for delivery information. documented in this encounter Plan of Treatment Upcoming Encounters Date Type Department Care Team (Late st Contact Info) Description 01/20/2025 3:30 PM EST Office Visit [facility] GASTROENTEROLOGY [address] [address] Robbin Escalante MD [address] [address] documented as of this encounter Visit Diagnoses Not on filedocumented in this encounter Additional Health Concerns Assessment Noted Time PHQ-2 Depression Total Score: 2 05/28/19 25 4:39 PM EDT documented as of this encounter Care Teams Parking Regulation Enforcement Officer Relationship Specialty Start Date End Date Norma Friedman APRN [address] [place] [address] [place]FAEL[place] APPIAH [address] PCP - General Family Medicine 05/14/24 documented as of this encounter
--- OUTSIDE RECORDS SUMMARY | 2024-11-04 08:25 | XMS_ITS | Encounter Summary ---
[facility] Address [address] [place] [id number] Care Team Providers Care Insulation Cupola Charger Name Role Phone IvyNorma goldberg JOLENE Primary Care Provider + [phone] Reason for Visit * Reason Onset Date Comments Advice Only 10/10/2024 Encounter Details Date Type Department Care Team (Late st Contact Info) Description 10/10/2024 Telephone [facility] MATERNAL MEDICINE [address] [facility] [place] [address] [place] [address] Lyudmila Germain, machine setter automatic Only Social History Tobacco Use Types Packs/Day Years Used Date Smoking Tobacco: Never Smokeless Tobacco: Never Alcohol Use Standard Drinks/Week Comments Never 0 (1 standard drink = 0.6 oz pur e alcohol) [facility] Utilities Answer Date Recorded In the past 12 months has [employer], gas, oil, or water [employer] threatened to shut off services in [...] and heating? Not hard at all 05/28/2024 [facility] [place] of Occupat ional Health - Occupational Stress [...] entry: Patient called desiring appointment with [facility] due to hypokalemia and hypomagnesemia requiring infusions every other day. Per retail marketing coordinator, referral was received here last week but our physicians determined patient needs to continue receiving [facility] care at as she sees otherspeciality physicians (cardiology, nephrology) there as well. Discussed this with patient who states Dr. Weller () refused to see her again and she has no options. Patient reported her physicians at [facility] told her if she has another cardiac event she will . Upon reviewing notes from specialists at , cardiology note states patient will wear rn cardiac and return in 4 weeks to discuss r esults and delivery plans and monitoring. Patient states cardiology refuses to see her until she ispostpartum - although it appears she has an appointment on 10/24. Per note from nephrology at , limited options for treatment other than continued repletion. Informed patient our office will reach out to [facility] at to determine if there is an [...] [facility] GASTROENTEROLOGY [address] [facility] [address] [place] [address] Robbin Escalante MD [address] [facility] [address] [place] [address] documented as of this encounter Visit Diagnoses Not on filedocumented in this encounter Additional Health Concerns Assessment Noted Time PHQ-2 Depression Total Score: 2 05/28/19 4:39 PM EDT documented as of this encounter Care Teams Insulation Cupola Charger Relationship Specialty Start Date End Date Norma Friedman APRN [address] [place] [address] [place]FA[place] APPIAH [address] PCP - General Family Medicine 05/14/24 documented as of this encounter
--- OUTSIDE RECORDS SUMMARY | 2024-11-04 08:25 | XMS_ITS | Encounter Summary ---
Author Organization [facility] Address [address] [place] [id number] Care Team Providers Care Bait Tier Name Role Phone Unavailable Primary Care Provider Unavailabl e Encounter Details Date Type Department Care Team (Late st Contact Info) Description 09/17/2024 Telephone Medical Office Building Obstetrics and Gynecology [address] [facility], [address] [place] [address] Josefina Shay RN [facility] [address] [place] [address] Social History Tobacco Use Types Packs/Day Years [...] recently had a full Nephrology work-up at [facility] that was negative and was [...] [address] [facility], [address] [place] [address] Nneka Gipson MD [address] [place] [address] 12/25/2024 1:00 PM EST Office Visit [facility] Nephrology, Bone & Mineral Metabolism [address] [facility], [address] [place] [address] documented as of this encounter Visit Diagnoses Not on filedocumented in this encounter
--- OUTSIDE RECORDS SUMMARY | 2024-11-04 08:25 | XMS_ITS | Encounter Summary ---
Author Organization Healthcare Address [address] [place] [address] Care Team Providers Care Slide Developer Name Role Phone Unavailable Primary Care Provider Unavailabl e Encounter Details Date Type Department Care Team (Late Contact Info) Description 09/17/2024 Telephone [facility] Nephrology, Bone & Mineral Metabolism [address] [facility], [address] [place] [address] Sherley Gold, CREDIT RISK MANAGEMENT DIRECTOR GS - 7 MAIN MEDICAL-SURGICAL Social History [...] Building Obstetrics and Gynecology [address] [facility], [address] [place] [address] Nneka Gipson MD [address] [place] [address] 12/25/2024 1:00 PM EST Office Visit [facility] Nephrology, Bone & Mineral Metabolism [address] [facility], [address] [place] [address] documented as of this encounter Visit Diagnoses Not on filedocumented in this encounter
--- OUTSIDE RECORDS SUMMARY | 2024-11-04 08:26 | XMS_ITS | Encounter Summary ---
[facility] Address [address] [place] [phone] Care Team Providers Care Circuit Tester Name Role Phone IvyKade goldbergjoseseven JOLENE Primary Care Provider + [phone] Encounter Details Date Type Department Care Team (Late st Contact Info) Description 09/03/2024 Results Follow-Up [facility] OBGYN [address] [place] [address] Staci Jain MD [address] [facility] [address] [place] [address] Social History Tobacco Use Types Packs/Day Years Used Date Smoking Tobacco: Never Smokeless Tobacco: Never Alcohol Use Standard Drinks/Week Comments Never 0 (1 standard drink = 0.6 oz pur e alcohol) [facility] Utilities Answer Date Recorded In the past 12 months has [employer], gas, oil, or water [employer] threatened to shut off services in your [...] 05/28/2024 [facility] of Occupat ional Health - Occupational [...] Visit [facility] GASTROENTEROLOGY [address] [address] Robbin Escalante MD [address] [address] documented as of this encounter Visit Diagnoses Not on filedocumented in this encounter Additional Health Concerns Assessment Noted Time PHQ-2 Depression Total Score: 2 05/28/19 4:39 PM EDT documented as of this encounter Care Teams Circuit Tester Relationship Specialty Start Date End Date Norma Friedman APRN [address] [place] G[address] [place] APPIAH [address] PCP - General Family Medicine 05/14/24 documented as of this encounter
--- OUTSIDE RECORDS SUMMARY | 2024-11-04 08:26 | XMS_ITS ---
Author Organization [facility] Address [address] [place] [address] Care Team Providers Care Tap Grinder Name Role Phone Unavailable Primary Care Provider Unavailabl e Transplant Episode Kidney Potential Donor [facility] ([place], [place]) - [facility] Referred on 05/03/2022 Marked as Deferred on 05/04/2022 Reason: Other Kidney CoordinatorNadine Augustin R.N. Phone: N/A Fax: N/A Email: N/A Care Team Name Role Phone Fax Email Nadine Augustin R.N. Kidney Coordinator N/A N/A N/A Events Pre-Donation Referred: 05/03/2022
--- OUTSIDE RECORDS SUMMARY | 2024-11-04 08:26 | XMS_ITS | Encounter Summary ---
Author Organization [facility] Address [address] [place] [address] Care Team Providers Care Can Doffer Name Role Phone Elder Kadedev Coy APRN Primary Care Provider +1- [phone] Lizz Trinh RN Unavailable Unavailable Reason for Referral * Consultation (Routine) - Authorized Specialty Diagnoses / Procedures Referred By Tarik pedersen Referred To Contact Nephrology Diagnoses History of proteinuria syndrome care, subsequent , second trimester Staci Jain MD [address] [address] Phone: tel: fax: [facility] Nephrology, Bone & Mineral Metabolism [address] [facility], [address] [place] [address] Phone: tel: fax: Referral ID Status Reason Start Date Expiration Date Visits Requested Visits Authorized [id number] Authorized Specialty Services Required 07/22/2024 01/21/2026 1 1 Encounter Details Date Type Department Care Team (Late st Contact Info) Description 07/22/2024 Community Orders [facility] [address] [place] [address] Staci Jain MD [address] [place] [address] History of proteinuria syndrome (Primary Dx); care, [...] [address] [facility], [address] [place] [address] Nneka Gipson MD [address] [place] [address] 12/25/2024 1:00 PM EST Office Visit [facility] Nephrology, Bone & Mineral Metabolism [address] [facility], [address] [place] [address] Scheduled Referrals Name Type Priority [...] documented as of this encounter Care Teams Can Doffer Relationship Specialty Start Date End Date Norma Friedman, FIBERGLASS TUBE MOLDER [address] [place] [address] PCP - General 09/23/24 Lizz Trinh, RN [facility] Registered Nurse Cardiology 09/26/24 documented as of this encounter
--- OUTSIDE RECORDS SUMMARY | 2024-11-04 08:26 | XMS_ITS | Encounter Summary ---
Author Organization Healthcare Address [address] [place] [address] Care Team Providers Care Slip Operator Name Role Phone Unavailable Primary Care Provider Unavailabl e Reason for Referral * Consultation (Routine) - Closed Specialty Diagnoses / Procedures Referred By Contac t Referred To Contact Nephrology Diagnoses Hypokalemia Liborio Weller MD [address] [facility] [address] [place] [address] Phone: tel: fax: [facility] [place] Nephrology, Bone & Mineral Metabolism [address] [facility], [address] [place] [address] Phone: tel: fax: Referral ID Status Reason Start Date Expiration Date V isits Requested Visits Authorized [id number] Closed Specialty Services Required 09/14/2024 03/16/2026 1 1 Scheduling Instructions Severe hypokalemia in the setting of Encounter Details Date Type Department Care Team (Late st Contact Info) Description 09/14/2024 Telephone [facility] Obstetrics & Gynecology [address] [place] [address] Susi Wren MD [address] [place] [address] Social History Tobacco Use Types [...] had an outpatient workup with Nephrology at [facility] that was negative, she was [...] Obstetrics and Gynecology [address] [facility], [address] [place] [address] Nneka Gipson MD [address] [place] [address] 12/25/2024 1:00 PM EST Office Visit [facility] [place] Nephrology, Bone & Mineral Metabolism [address] [facility], [address] [place] [address] Scheduled Referrals Name Type Priority Associated Diagnoses Order Schedule Ambulatory referral to Nephrology Clinic Outpatient Referral Routine Hypokalemia 1 Occurrences starting 09/14/2024 until 03/18/2026 documented as of this encounter Visit Diagnoses Diagnosis Hypokalemia- Primary Hypopotassemia documented in this encounter
--- OUTSIDE RECORDS SUMMARY | 2024-11-04 08:26 | XMS_ITS | Encounter Summary ---
Author Organization Healthcare Address [address] [id number] Care Team Providers Care Mosaic Tile Maker Name Role Phone Norma Friedman APRN Primary Care Provider [phone]- [phone] Lizz Trinh RN Unavailable Unavailable Reason for Visit * Auth/Cert (Routine) Specialty Diagnoses / Procedures Referred By Tarik pedersen Referred To Contact Diagnoses Supervision of high risk , unspecified, third trimester [facility] [address] [place] [address] Phone: tel: [facility] Labor [facility] Delivery [address] [place] [address] Phone: tel: fax: Referral ID Status Reason Start Date Expiration Date Visits Re quested Visits Authorized [id number] 1 1 Encounter Details Date Type Department Care Team ([facility] st Contact Info) Description 10/31/2024 Hospital Encounter [facility] Labor [facility] Delivery [address] [place] [address] Social History Tobacco Use Types Packs/Day Years [...] more drinks on one occasion? Never 09/23/2024 Bethesda Depression Scale Answer Date Recorded Bethesda Depression Scale Total 0 09/23/2024 The thought [...] hopeless Not at all 10/07 7:52 AM Nadine Mayo Patient Health Questionnaire-2 Score 0 10/07 7:52 AM Nadine Mayo * Question Answer Date of Assessment Author Trouble falling or staying a sleep, or sleeping too much Not at all 10/24/2024 7:52 AM Nadine Mayo Feeling tired or having little energy Not [...] Nadine Munroe documented as of this encounter Plan of Treatment Upcoming Encounters Date Type Department Care Team (Late st Contact Info) Description 11/21/2024 11:15 AM EDT Visit Medical Office Building Obstetrics and Gynecology [address], [address] [place] [address] Nneka Gipson MD [address] [place] [address] 12/25/2024 1:00 PM EST Office Visit Professional [facility] [address], [address] [place] [address] documented as of this encounter [...] documented as of this encounter Care Teams Mosaic Tile Maker Relationship Specialty Start Date End Date Norma Friedman APRN [address] [place] [id number] PCP - General 09/23/24 Lizz Trinh, RN [facility] Registered Nurse Cardiology 09/26/24 documented as of this encounter
--- OUTSIDE RECORDS SUMMARY | 2024-11-04 08:26 | XMS_ITS | Clinical Summary ---
Author Organization [facility] Address [address] [place] [address] Care Team Providers Care Cage Manager Name Role Phone Norma Friedman APRN Primary Care Provider + [phone] Allergies Active Allergy Reactions Criticality Noted Date [...] Department Care Team Description 5 Telephone [facility] MATERNAL MEDICINE [address] [facility] [place] [address] [place] [address] Lyudmila Germain, technical artist Only 5 Documentation [facility] [address] [place] [address] Christy Zabala RN 5 Results Follow-Up [facility] OBGYN [address] [place] [address] Rob Wharton MD 5 Telephone [facility] [address] [facility] [address] [place] [address] Rob Wharton MD 5 10:00 AM EDT Routine [facility] [place] [address] Rob Wharton MD GA: 26w4d 5 Travel 5 Telephone [facility] OBGYN [address] [facility] [address] [place] [address] Rob Wharton MD 5 Telephone [facility] [place] [address] Rob Wharton MD 5 1:44 PM EDT Anesthesia Event [facility] [address] [place] [address] Akash Anguiano MD Lanham, John, CRNA 5 1:33 PM EDT - 5 2:05 PM EDT Surgery [facility] [address] [facility] [place] [address] Blu Alvarado MD ESOPHAGOGASTRODUODENOSCOPY [19820 (CPT )] 5 1:59 PM EDT - 5 4:28 PM EDT Hospital Encounter [facility]TE[facility] [address] [place] [address] Rob Wharton MD Brunner, Mark I, MD Dysphagia, unspecified type (Primary Dx) Discharge Disposition: Home or Self Care 5 10:15 AM EDT Routine [facility] OBGYN [address] [place] [address] Jacey Mathews, CATTLE STICKER GA: 25w1d 5 Telephone [facility] OBGYN [address] [place] [address] Jacey Mathews, CATTLE STICKER 5 Travel from Last 3 Months Family [...] = 0.6 oz pur e alcohol) [facility] Utilities Answer Date Recorded In the past 12 months has [employer], gas, oil, or water [employer] threatened to shut off services in your [...] and heating? Not hard at all 05/28/2024 [employer] [place] [facility] [employer] - Occupational Stress [...] Office Visit [facility] GASTROENTEROLOGY [address] [address] Robbin Escalante MD [address] [address] Health Maintenance Due Date Last [...] 08/20/2024 1:55 PM EDT Dysphagia, unspecified type CA ESOPHAGOGASTRODUODENOSCOP Y TRANSORAL DIAGNOSTIC 08/20/2024 1:44 PM EDT Dysphagia, unspecified type UPPER GI ENDOSCOPY 08/20/2024 1:09 PM EDT BASIC METABOLIC PANEL STAT 08/20/2024 5:25 AM EDT POTASSIUM STAT 08/19/2024 8:53 PM EDT ABORH 2ND SPECIMEN VERIFICATION STAT 08/19/2024 4:34 PM EDT NONSTRESS TEST Routine 08/19/2024 4:17 PM EDT [facility] DIAGNOSTIC CENTER Routine 08/19/2024 3:25 [...] - 08/30/2024 6:09 AM EDT Performed at: [address] [place] [id number] Manager Sports: Kevin Harman MD, Phone: [phone] Patient Fasting: N Rob Wharton MD LAB BLOOD ORDERABLES Final Result [facility] (AMBULATORY) [address] [place] [address], [place] [phone] [facility] [address] [place] [address], [place] [phone] * (ABNORMAL) Comprehensive Metabolic Panel (08/29/2024 11:05 AM EDT) Only the most recent of2 resultswithin the time period is included. [facility] Glucose 72 65 - 99 mg/dL [...] - 08/30/2024 6:09 AM EDT Performed at: [address] [place] [id number] Manager Sports: Kevin Harman MD, Phone: [phone] Patient Fasting: N Rob Wharton MD LAB BLOOD ORDERABLES Final Result [facility] (AMBULATORY) [address] [place] [address], [place] [phone] [facility] [address] [place] [address], [place] [phone] * (ABNORMAL) POC Urinalysis Dipstick (08/29/2024 10:13 AM EDT) Glucose, UA Negative Negative mg/dL [facility] Protein, POC Trace(A) Negative mg/dL [facility] Urine 08/29/2024 10:1 3 AM EDT Rob Wharton MD POINT OF CARE TEST OR DERABLES Final Result [facility]
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 pylori is negative (no organisms are identified) Negative for intestinal metaplasia, dysplasia, or malignancy 08/22/2024 9:18 AM EDT [facility] at 0918 EDT Gross Description 1. Gastric, Antrum. Received in formalin labeled antrum biopsy is a 0.4 x 0.2 x 0.2 cm pink-see soft tissue fragment submitted entirely in a single cassette. HDM 08/22/2024 9:18 AM EDT [facility] Microscopic Description The slides are reviewed and demonstrate histopathologic features supporting the above rendered diagnosis. 08/22/2024 9:18 AM EDT [facility] Tissue Pyloric antrum structure / Unknown 08/20/2024 1:55 PM EDT 08/20/2024 2:14 PM EDT Bul Alvarado MD PATHOLOGY/CYTOLOGY ORDERABLES Final Result [facility]
[address] [place] [address], * Upper GI Endoscopy (08/20/2024 1:09 PM EDT) Blu Alvarado MD INTERFACE NEEDS Final Result * (ABNORMAL) Basic Metabolic Panel (08/20/2024 5:25 AM EDT) Glucose 84 65 - 99 mg/dL 08/20/2024 6:13 AM EDT [facility] BUN 2.3(L) 6.0 - 20.0 mg/dL 08/20/2024 6:13 AM EDT [facility] Creatinine 0.51(L) 0.57 - 1.00 mg/dL 08/20/2024 6:13 AM EDT [facility] Sodium 139 136 - 145 mmol/L 08/20/2024 6:13 AM EDT [facility] Potassium 3.5 3.5 - 5.2 mmol/L 08/20/2024 6:13 AM EDT [facility] Chloride 109(H) 98 - 107 mmol/L 08/20/2024 6:13 AM EDT [facility] CO2 23.5 22.0 - 29.0 mmol/L 08/20/2024 6:13 AM EDT [facility] Calcium 7.8(L) 8.6 - 10.5 mg/dL 08/20/2024 6:13 AM EDT [facility] BUN/Creatinine Ratio 4.5(L) 7.0 - 25.0 08/20/2024 6:13 AM EDT [facility] Anion Gap 6.5 5.0 - 15.0 mmol/L 08/20/2024 6:13 AM EDT [facility] eGFR 126.6 >60.0 mL/min/1.7 3 08/20/2024 6:13 AM EDT [facility] Blood Venipuncture / Unknown 08/20/2024 5:25 AM EDT 08/20/2024 5:46 AM EDT Narrative [facility] - 08/20/2024 6:13 AM [...] Performing Organization Address City/[facility]/ZIP Co de Phone Number [facility]
[address] [place] [address], [place] [phone] * (ABNORMAL) Potassium (08/19/2024 8:53 PM EDT) Potassium 2.7(L) 3.5 - 5.2 mmol/L 08/19/2024 9:20 PM EDT [facility] Blood Venipuncture / Unknown 08/19/2024 8:53 PM EDT 08/19/2024 9:04 PM EDT Kt Fan DO LAB BLOOD ORDERABLES Final Result [facility]
[address] [place] [address], [place] [phone] * ABO RH Specimen Verification (08/19/2024 4:34 PM EDT) ABO Type O 08/19/2024 7:39 PM EDT [facility] RH type Positive 08/19/2024 7:39 PM EDT [facility] Blood Venipuncture / Unknown 08/19/2024 4:34 PM EDT 08/19/2024 4:53 PM EDT Rob Wharton MD BLOOD BANK TEST ORDER FRANCO Final Result [facility]
[address] [place] [address], * [facility] (08/19/2024 3:25 PM EDT) Anatomical Region Laterality Modality Ultrasound 08/19/2024 3:09 PM EDT Narrative 08/19/2024 4:54 PM EDT PAT NAME: CAROLE GIRARD MED REC#: [id number] DA: [id number] PAT GEND: F PAT TYPE: E EXAM TRAVIS: [id number] REF PHYS ROB WHARTON Comparison Studies The [...] EFW (oz) 9 oz EFW by: Hadlock ([id number]) Extended Cav. septi pel. tr 4.7 mm Sample Maker Hand 3.8 mm CM 7.5 mm 84% Nicolaides [...] Heart / Thorax 3-vessel view: Appears normal 1-kphunw-rjsqzjq view: Appears normal Stomach: Appears normal Kidneys: [...] in 4wks for growth. Coding ======= Description: 95649-21 Follow Up Winding Inspector And Tester: RT Annetta Hartmann , [facility] [[email or web address]] Physician: Jo Chappell MD Electronically signed by: Jo Chappell MD at: 16:54 Procedure Note Jo Chappell MD - 08/19/2024 PAT NAME: CAROLE GIRARD MED REC#: [id number] DA: [id number] PAT GEND: F PAT TYPE: E EXAM TRAVIS: [id number] REF PHYS ROB WHARTON Comparison Studies The findings of this study are compared to the prior ultrasound studydated 07/22/24 Patient Status Inpatient Indication ======== History of c/s x1. History of . Vaginal bleeding. Maternal Assessment Mvqtsg067 cm Height (ft)5 ft Height (in)4 in Dtgwlh87 kg Weight (lb)158 lb BMI27.31 kg/m Method ======= Transabdominal ultrasound examination. View: Limited by patient bodyhabitus ========= Love . Number of fetuses: 1 Dating ====== Method of dating:based on stated DUSTY GA by prior ctgsdumqmn34 w + 1 d DUSTY by prior assessment:12/01/2024 Ultrasound examination on:08/19/2024 GA by U/S based upon:AC, BPD, Femur, HC GA by U/S24 w + 2 d DUSTY by U/S:12/07/2024 Previous dating:based on stated DUSTY, selected on 07/22/2024 Agreed DUSTY of previous datin12/01/2024 Assigned:based on stated DUSTY, selected on 08/19/2024 Assigned GA25 w + 1 d Assigned DUSTY:12/01/2024 pqhybd186 d Biometry Standard BPD57.6 mm 23w 4d 5% Hadlock OFD81.6 mm 26w 4d 88% Jamal HC225.7 mm 24w 4d 13% Hadlock Cerebellum tr28.9 mm 25w 2d 62% Hill AC194.9 mm 24w 1d 15% Hadlock Femur44.9 mm 24w 6d 27% Hadlock Glujynf32.3 mm 25w 3d 50% Jamal HC / AC1.16 WDL565 g 24w 2d 16% Hadlock EFW (lb)1 lb EFW (oz)9 oz EFW by:Hadlock ([id number]) Extended Cav. septi pel. tr4.7 mm Vp3.8 mm CM7.5 mm 84% Nicolaides Head / Face / Neck Cephalic index0.71 <1% Nicolaides Extremities / Bony Struc FL / BPD0.78 FL / HC0.20 FL / AC0.23 Other Structures KRN598 bpm General Evaluation Cardiac activity present. FHR [...] normal Heart / Thorax 3-vessel view:Appears normal 0-flqupd-znxzqma view:Appears normal Stomach:Appears normal Kidneys:Appears normal Bladder:Appears normal Gender:female Wants to know gender:yes Maternal Structures Uterus / Cervix Cervix:Visualized Approach:Transabdominal Cervical pysfhy20.9 mm Doppler Arterial Umbilical A PI1.01 32% [...] office in 4wks for growth. Coding ======= Description:87614-69 Follow Up Winding Inspector And Tester: RT Annetta Hartmann , [facility] [[email or web address]] Physician: Jo Chappell MD Electronically signed by: Jo Chappell MD at: 16:54 Kt Fan DO IMG US ORDERABLES Final Res ult * Urinalysis, Microscopic Only - Urine, Clean Catch (08/19/2024 3:02 PM EDT) RBC, UA 0-2 None Seen, 0-2 /HPF 08/19/2024 3:33 PM EDT [facility] WBC, UA 0-2 None Seen, 0-2 /HPF 08/19/2024 3:33 PM EDT [facility] Bacteria, UA None Seen None Seen /HPF 08/19/2024 3:33 PM EDT [facility] Squamous Epithelial Cells, UA 0-2 None Seen, 0-2 /HPF 08/19/2024 3:33 PM EDT [facility] Hyaline Casts, UA None Seen None Seen /LPF 08/19/2024 3:33 PM EDT [facility] Methodology Automated Microscopy 08/19/2024 3:33 PM EDT [facility] Urine Urine specimen obtained by clean catch procedure / Unknown Collection / Unknown 08/19/2024 3:02 PM EDT 08/19/2024 3:13 PM EDT Kt Fan DO URINE ORDERABLES Final Resu lt [facility]
[address] [place] [address], * (ABNORMAL) Urinalysis With Microscopic If Indicated (No Culture) - Urine, Clean Catch (08/19/2024 3:02 PM EDT) Color, UA Yellow Yellow, Straw 08/19/2024 3:33 PM EDT [facility] Appearance, UA Clear Clear 08/19/2024 3:33 PM EDT [facility] pH, UA >=9.0(H) 5.0 - 8.0 08/19/2024 3:33 PM EDT [facility] Specific [place], UA 1.018 1.005 - 1.030 08/19/2024 3:33 PM EDT [facility] Glucose, UA Negative Negative 08/19/2024 3:33 PM EDT [facility] Ketones, UA 15 mg/dL (1+)(A) Negative 08/19/2024 3:33 PM EDT [facility] Bilirubin, UA Negative Negative 08/19/2024 3:33 PM EDT [facility] Blood, UA Negative Negative 08/19/2024 3:33 PM EDT [facility] Protein, UA 30 mg/dL (1+)(A) Negative 08/19/2024 3:33 PM EDT [facility] Leuk Esterase, UA Negative Negative 08/19/2024 3:33 PM EDT [facility] Nitrite, UA Negative Negative 08/19/2024 3:33 PM EDT [facility] Urobilinogen, UA 1.0 E.U./dL 0.2 - 1.0 E.U./dL 08/19/2024 3:33 PM EDT [facility] Urine Urine specimen obtained by clean catch procedure / Unknown Collection / Unknown 08/19/2024 3:02 PM EDT 08/19/2024 3:13 PM EDT Kt Fan DO URINE ORDERABLES Final Resu lt [facility]
[address] [place] [address], * (ABNORMAL) CBC Auto Differential (08/19/2024 3:02 PM EDT) WBC 9.19 3.40 - 10.80 10*3/mm3 08/19/2024 3:23 PM EDT [facility] RBC 3.58(L) 3.77 - 5.28 10*6/mm3 08/19/2024 3:23 PM EDT [facility] Hemoglobin 10.5(L) 12.0 - 15.9 g/dL 08/19/2024 3:23 PM EDT [facility] Hematocrit 31.4(L) 34.0 - 46.6 % 08/19/2024 3:23 PM EDT [facility] MCV 87.7 79.0 - 97.0 fL 08/19/2024 3:23 PM EDT [facility] MCH 29.3 26.6 - 33.0 pg 08/19/2024 3:23 PM EDT [facility] MCHC 33.4 31.5 - 35.7 g/dL 08/19/2024 3:23 PM EDT [facility] RDW 13.4 12.3 - 15.4 % 08/19/2024 3:23 PM EDT [facility] RDW-SD 42.4 37.0 - 54.0 fl 08/19/2024 3:[facility] MPV 12.0 6.0 - 12.0 fL 08/19/2024 3:23 PM EDT [facility] Platelets 241 140 - 450 10*3/mm3 08/19/2024 3:23 PM EDT [facility] Neutrophil % 66.8 42.7 - 76.0 % 08/19/2024 3:23 PM EDT [facility] Lymphocyte % 24.4 19.6 - 45.3 % 08/19/2024 3:23 PM EDT [facility] Monocyte % 7.6 5.0 - 12.0 % 08/19/2024 3:23 PM EDT [facility] Eosinophil % 0.7 0.3 - 6.2 % 08/19/2024 3:23 PM EDT [facility] Basophil % 0.2 0.0 - 1.5 % 08/19/2024 3:23 PM EDT [facility] Immature Grans % 0.3 0.0 - 0.5 % 08/19/2024 3:23 PM EDT [facility] Neutrophils, Absolute 6.14 1.70 - 7.00 10*3/mm3 08/19/2024 3:23 PM EDT [facility] Lymphocytes, Absolute 2.24 0.70 - 3.10 10*3/mm3 08/19/2024 3:23 PM EDT [facility] Monocytes, Absolute 0.70 0.10 - 0.90 10*3/mm3 08/19/2024 3:23 PM EDT [facility] Eosinophils, Absolute 0.06 0.00 - 0.40 10*3/mm3 08/19/2024 3:23 PM EDT [facility] Basophils, Absolute 0.02 0.00 - 0.20 10*3/mm3 08/19/2024 3:23 PM EDT [facility] Immature Grans, Absolute 0.03 0.00 - 0.05 10*3/mm3 08/19/2024 3:23 PM EDT [facility] nRBC 0.0 0.0 - 0.2 /100 WBC 08/19/2024 3:23 PM EDT [facility] Blood Line / Unknown 08/19/2024 3: 02 PM EDT 08/19/2024 3:10 PM EDT Kt Fan DO LAB BLOOD ORDERABLES Final Result [facility]
[address] [place] [address], * Protein / Creatinine Ratio, Urine - Urine, Clean Catch (08/19/2024 3:02 PM EDT) Protein/Creati nine Ratio, Urine 126.1 0.0 - 200.0 mg/G Crea 08/20/2024 12:47 AM EDT [facility] Creatinine, Urine 148.3 mg/dL 08/20/2024 12:47 AM EDT [facility] Total Protein, Urine 18.7 mg/dL 08/20/2024 12:47 AM EDT [facility] Urine Urine specimen obtained by clean catch procedure / Unknown Collection / Unknown 08/19/2024 3:02 PM EDT 08/19/2024 4:26 PM EDT Kt Fan DO URINE ORDERABLES Final Resu lt [facility]
[address] [place] [address], [place] [phone] * Type & Screen (08/19/2024 3:02 PM EDT) ABO Type O 08/19/2024 3:51 PM EDT [facility] RH type Positive 08/19/2024 3:51 PM EDT [facility] Antibody Screen Negative 08/19/2024 3:51 PM EDT [facility] T&S Expiration Date 08/22/2024 11:59:59 PM 08/19/2024 3:51 PM EDT [facility] Blood Line / Unknown 08/19/2024 3: 02 PM EDT 08/19/2024 3:15 PM EDT Kt Fan DO BLOOD BANK TEST ORDERABLES Edited Result - Final Performing Organization Address [facility]/ZIP Co de Phone Number [facility]
[address] [place] [address], [place] [phone] * (ABNORMAL) Magnesium (08/19/2024 3:02 PM EDT) Magnesium 1.5(L) 1.6 - 2.6 mg/dL 08/19/2024 5:12 PM EDT [facility] Blood Line / Unknown 08/19/2024 3: 02 PM EDT 08/19/2024 3:10 PM EDT us Kt Fan DO LAB BLOOD ORDERABLES Final Result [facility]
[address] [place] [address], * Lipase (08/19/2024 3:02 PM EDT) Lipase 13 13 - 60 U/L 08/19/2024 3:36 PM EDT [facility] Blood Line / Unknown 08/19/2024 3: 02 PM EDT 08/19/2024 3:10 PM EDT Kt Fan DO LAB BLOOD ORDERABLES Final Result Performing Organization Address City/[facility]/ZIP Co de Phone Number [facility]
[address] [place] [address], * Amylase (08/19/2024 3:02 PM EDT) Pathologist [facility] Amylase 73 28 - 100 U/L 08/19/2024 3:36 PM EDT [facility] Blood Line / Unknown 08/19/2024 3: 02 PM EDT 08/19/2024 3:10 PM EDT Kt Fan DO LAB BLOOD ORDERABLES Final Result Performing Organization Address City/[facility]/ZIP Co de Phone Number [facility]
[address] [place] [address], * Hepatitis C Antibody (04/12/2024) Pathologist [facility] [place] Hep C Virus Ab negative Blood Historical Provider LAB BLOOD ORDERABLES Lena l Result from Last 3 Months or Most Recently Relevant to Health Maintenance Insurance [facility] Care Teams Cage Manager Relationship Specialty Start Date End Date Norma Friedman APRN [address] [place] G3 RAFAELA APPIAH [id number] PCP - General Family Medicine 05/14/24
--- OUTSIDE RECORDS SUMMARY | 2024-11-04 08:27 | XMS_ITS | Encounter Summary ---
Author Organization Healthcare Address [address] [place] [address] Care Team Providers Care [employer] Name Role Phone Norma Friedman APRN Primary Care Provider [phone]- [phone] Encounter Details Date Type Department Care Team [...] more drinks on one occasion? Never 09/23/2024 Milmay Depression Scale Answer Date Recorded [place] Depression Scale Total 0 09/23/2024 The thought [...] Upcoming Encounters Date Type Department Care Team ([facility] Contact Info) Description 11/21/2024 11:15 AM EDT Visit Medical Office Building Obstetrics and Gynecology [address], [address] [place] [address] Nneka Gipson MD [address] [place] [address] 12/25/2024 1:00 PM EST Office Visit [facility] Nephrology, Bone & Mineral Metabolism [address], [address] [place] [id number] documented as of this encounter Visit Diagnoses Not on filedocumented in this encounter Additional Health Concerns Assessment Noted Time A fall risk assessment has been complete d for the patient 09/25/2024 3:05 PM EDT A Body Mass Index follow-up plan has been documented for the patient 10/05/2024 8:54 PM EDT documented as of this encounter Care Teams [employer] Relationship Specialty Start Date End Date Norma Friedman APRN [address] [place] [id number] PCP - General 09/23/24 documented as of this encounter
--- OUTSIDE RECORDS SUMMARY | 2024-11-04 08:27 | XMS_ITS | Encounter Summary ---
Author Organization Healthcare Address [address] [place] [address] Care Team Providers Care Sandblaster Glass Name Role Phone Norma Friedman JOLENE Primary Care Provider +1- [phone] Lizz Trinh RN Unavailable Unavailable Encounter Details [...] more drinks on one occasion? Never 09/23/2024 [place] Depression Scale Answer Date Recorded [place] Depression Scale Total 0 09/23/2024 The thought [...] Upcoming Encounters Date Type Department Care Team ([facility] st Contact Info) Description 11/21/2024 11:15 AM EDT Visit Medical Office Building Obstetrics and Gynecology [address] [facility], [address] [place] [address] Nneka Gipson MD [address] [place] [address] 12/25/2024 1:00 PM EST Office Visit [facility] Nephrology, Bone & Mineral Metabolism [address] [facility], [address] [place] [address] documented as of this encounter Visit Diagnoses Not on filedocumented in this encounter Additional Health Concerns Assessment Noted Time A fall risk assessment has been complete d for the patient 09/26/2024 8:15 AM EDT A Body Mass Index follow-up plan has been documented for the patient 09/27/2024 10:22 AM EDT documented as of this encounter Care Teams Sandblaster Glass Relationship Specialty Start Date End Date Norma Friedman APRN [address] [place] [address] PCP - General 09/23/24 Lizz Trinh, RN [facility] Registered Nurse Cardiology 09/26/24 documented as of this encounter
--- OUTSIDE RECORDS SUMMARY | 2024-11-04 08:28 | XMS_ITS ---
Author Organization [facility] Address [address] [place] [address] Care Team Providers Care Concrete Technician Name Role Phone Norma Friedman APRN Primary Care Provider [phone] Motherhood Connection Status:Engaged (Active) Start date:05/23/2024 Enrollment date:05/23/2024 Case Team Name Relationship Phone Bindu Castellon RN Nurse Navigator Christy Zabala RN(Responsible Staff) Nurse Navig ator Continued Care and Services Coordination
--- OUTSIDE RECORDS SUMMARY | 2024-11-04 08:28 | XMS_ITS | Encounter Summary ---
Author Organization Healthcare Address [address] [place] [address] Care Team Providers Care Manager Of Broadcast Content Name Role Phone Norma Friedman APRN Primary Care Provider +1- [phone] Encounter Details Date Type Department Care Team [...] drinks on one occasion? Never 09/23/2024 [place] Depression Scale Answer Date Recorded [place] Depression Scale Total 0 09/23/2024 The thought [...] Obstetrics and Gynecology [address] [facility], [address] [place] [address] Nneka Gipson MD [address] [place] [address] 12/25/2024 1:00 PM EST Office Visit [facility] [place] Nephrology, Bone & Mineral Metabolism [address] [facility], [address] [place] [address] documented as of this encounter Visit Diagnoses Not on filedocumented in this encounter Additional Health Concerns Assessment Noted Time A Body Mass Index follow-up plan has been documented for the patient 09/23/2024 8:28 PM EDT documented as of this encounter Care Teams Manager Of Broadcast Content Relationship Specialty Start Date End Date Norma Friedman APRN [address] [place] [address] PCP - General 09/23/24 documented as of this encounter
--- OUTSIDE RECORDS SUMMARY | 2024-11-04 08:28 | XMS_ITS | Referral Summary ---
Author Organization [employer] ([place], [place], [place], [place]) Address [address] [place] [address] Care Team Providers Care Computer Drafter Name Role Phone Unavailable Primary Care Provider [...]
--- OUTSIDE RECORDS SUMMARY | 2024-11-04 08:28 | XMS_ITS | Encounter Summary ---
Author Organization [employer] ([place], [place], [place], [place]) Address [address] [place] [address] Care Team Providers Care Ramp Lead Name Role Phone Unavailable Primary Care Provider Unavailabl e Encounter Details Date Type Department Care Team (Late st Contact Info) Description 07/17/2019 Transcribed Document [facility] Family Medicine [address] [place] [address] ProviderEleno MD [address], [place] [address] Social History Tobacco Use Types Packs/Day Years [...] On: 07/17/2019 19:17 EDT by KARLENE MCKINLEY getter welder Process Patient Disposition : AMA/Elope/LWBS KARLENE MCKINLEY [...]
--- OUTSIDE RECORDS SUMMARY | 2024-11-04 08:28 | XMS_ITS | Clinical Summary ---
Author Organization [employer] ([place], [place], [place], [place]) Address [address] [place] [address] Care Team Providers Care Property Officer Name Role Phone Unavailable Primary Care [...]
--- OUTSIDE RECORDS SUMMARY | 2024-11-04 08:29 | XMS_ITS | Encounter Summary ---
Author Organization Healthcare Address [address] [place] [address] Care Team Providers Care Casket Liner Name Role Phone Norma Friedman JOLENE Primary Care Provider +1- [phone] Lizz Trinh RN Unavailable Unavailable Encounter Details Date Type Department Care Team (Late st Contact Info) Description 10/23/[address] [facility] Obstetrics & Gynecology [address] [place] [address] Ana Deal MD [address] [place] [address] Social History Tobacco Use Types Packs/Day Years [...] more drinks on one occasion? Never 09/23/2024 [place] Depression Scale Answer Date Recorded [place] Depression Scale Total 0 09/23/2024 The thought [...] Office Building Obstetrics and Gynecology [address] [facility], [address] [place] [address] Nneka Gipson MD [address] [place] [address] 12/25/2024 1:00 PM EST Office Visit [facility] Nephrology, Bone & Mineral Metabolism [address] [facility], [address] [place] [address] documented as of this encounter Visit Diagnoses Not on filedocumented in this encounter Additional Health Concerns Assessment Noted Time A fall risk assessment has been complete d for the patient 09/26/2024 8:15 AM EDT A Body Mass Index follow-up plan has been documented for the patient 10/20/2024 9:52 AM EDT documented as of this encounter Care Teams Casket Liner Relationship Specialty Start Date End Date Norma Friedman APRN [address] [place] [address] PCP - General 09/23/24 Lizz Trinh, RN [facility] Registered Nurse Cardiology 09/26/24 documented as of this encounter
--- OUTSIDE RECORDS SUMMARY | 2024-11-04 08:30 | XMS_ITS | Encounter Summary ---
Author Organization Healthcare Address [address] [place] [address] Care Team Providers Care Trapeze Performer Name Role Phone Norma Friedman JOLENE Primary Care Provider +1- [phone] Lizz Trinh RN Unavailable Unavailable Encounter Details [...] more drinks on one occasion? Never 09/23/2024 [place] Depression Scale Answer Date Recorded [place] Depression Scale Total 0 09/23/2024 The thought [...] [address] [facility], [address] [place] [address] Nneka Gipson MD [address] [place] [phone] 12/25/2024 1:00 PM EST Office Visit [facility] [employer] [facility] [place] Nephrology, Bone & Mineral Metabolism [address] [facility], [address] [place] [address] documented as of this encounter Visit Diagnoses Not on filedocumented in this encounter Additional Health Concerns Assessment Noted Time A fall risk assessment has been complete d for the patient 09/26/2024 8:15 AM EDT A Body Mass Index follow-up plan has been documented for the patient 10/20/2024 9:52 AM EDT documented as of this encounter Care Teams Trapeze Performer Relationship Specialty Start Date End Date Norma Friedman APRN [address] [place] [address] PCP - General 09/23/24 Lizz Trinh, RN [facility] Registered Nurse Cardiology 09/26/24 documented as of this encounter
--- OUTSIDE RECORDS SUMMARY | 2024-11-04 08:30 | XMS_ITS | Encounter Summary ---
Author Organization Healthcare Address [address] [place] [address] Care Team Providers Care Concrete Paving Supervisor Name Role Phone Norma Friedman JOLENE Primary Care Provider +1- [phone] Lizz Trinh RN Unavailable Unavailable Encounter Details Date Type Department Care Team ([facility] Contact Info) Description 10/24/2024 Orders Only Medical Office Building Obstetrics and Gynecology [address] [facility], [address] [place] [address] Kaitlyn Richter MD [address] [place] [address] Social History Tobacco Use Types Packs/Day Years [...] more drinks on one occasion? Never 09/23/2024 [place] Depression Scale Answer Date Recorded [place] Depression Scale Total 0 09/23/2024 The thought [...] [address] [facility], [address] [place] [address] Nneka Gipson MD [address] [place] [phone] 12/25/2024 1:00 PM EST Office Visit [facility] Nephrology, Bone & Mineral Metabolism [address] [facility], [address] [place] [address] documented as of this encounter [...] documented as of this encounter Care Teams Concrete Paving Supervisor Relationship Specialty Start Date End Date Norma Friedman APRN [address] [place] [address] PCP - General 09/23/24 Lizz Trinh, RN [facility] [facility] Registered Nurse Cardiology 09/26/24 documented as of this encounter
--- OUTSIDE RECORDS SUMMARY | 2024-11-04 08:30 | XMS_ITS | Encounter Summary ---
Author Organization Healthcare Address [address] [place] [address] Care Team Providers Care Operations Specialist Name Role Phone Norma Friedman JOLENE Primary Care Provider +1- [phone] Lizz Trinh RN Unavailable Unavailable Encounter Details Date Type Department Care Team ([facility] Contact Info) Description 10/21/2024 Telephone Ch molecular genetic pathologist (l&d) Virtual Dept. [address] [place] [phone] Ana Deal MD [address] [place] [address] Social History Tobacco Use Types Packs/Day Years [...] more drinks on one occasion? Never 09/23/2024 [place] Depression Scale Answer Date Recorded [place] Depression Scale Total 0 09/23/2024 The thought [...] Discussed with [facility] and [facility] Fellow bariatric surgeon, Perry Gage, who agree that the patient [...] Upcoming Encounters Date Type Department Care Team ([facility] Contact Info) Description 11/21/2024 11:15 AM EDT Visit Medical Office Building Obstetrics and Gynecology [address] [facility], [address] [place] [address] Nneka Gipson MD [address] [place] [address] 12/25/2024 1:00 PM EST Office Visit [facility] Nephrology, Bone & Mineral Metabolism [address] [facility], [address] [place] [address] documented as of this encounter Visit Diagnoses Diagnosis Esophagitis- Primary Unspecified esophagitis documented in this encounter Additional Health Concerns Assessment Noted Time A fall risk assessment has been complete d for the patient 09/26/2024 8:15 AM EDT A Body Mass Index follow-up plan has been documented for the patient 10/20/2024 9:52 AM EDT documented as of this encounter Care Teams Operations Specialist Relationship Specialty Start Date End Date Norma Friedman APRN [address] [facility] [place] [address] PCP - General 09/23/24 Lizz Trinh, RN [facility] Registered Nurse Cardiology 09/26/24 documented as of this encounter
--- OUTSIDE RECORDS SUMMARY | 2024-11-04 08:30 | XMS_ITS | Encounter Summary ---
Author Organization [facility] Address [address] [place] [id number] Care Team Providers Care Pump Runner Name Role Phone Edler Norma FERNÁNDEZ Primary Care Provider + [phone] Encounter Details Date Type Department Care Team (Late st Contact Info) Description 07/07/2024 Results Follow-Up [facility] OBGYN [address] [place] [address] [place] [phone] Kelly Delgado APRN [address] [facility] [address] [place] [address] Social History Tobacco Use Types Packs/Day Years Used Date Smoking Tobacco: Never Smokeless Tobacco: Never Alcohol Use Standard Drinks/Week Comments Never 0 (1 standard drink = 0.6 oz pur e alcohol) [facility] Utilities Answer Date Recorded In the past 12 months has [employer], gas, oil, or water [employer] threatened to shut off services in your [...] and heating? Not hard at all 05/28/2024 [facility] - Occupational [...] Visit [facility]STR[facility]ENTEROLOGY [address] [address] Robbin Escalante MD [address] [address] documented as of this encounter Visit Diagnoses Not on filedocumented in this encounter Additional Health Concerns Assessment Noted Time PHQ-2 Depression Total Score: 2 05/28/19 25 4:39 PM EDT documented as of this encounter Care Teams Pump Runner Relationship Specialty Start Date End Date Norma Friedman APRN [address] [place] [address] [place] [address] [place] [address] PCP - General Family Medicine 05/14/24 documented as of this encounter
--- OUTSIDE RECORDS SUMMARY | 2024-11-04 08:31 | XMS_ITS | Clinical Summary ---
Author Organization [facility] Address [address] [place] [address] Care Team Providers Care Wide Load Escort Name Role Phone Norma burger JOLENE Primary Care Provider [phone]- [phone] Lizz Trinh RN Unavailable Unavailable Allergies Active Allergy Reactions Criticality Noted Date Comments Peanut Allergen Powder-Dnfp Hives Medium 09/23/2024 Tobacco Other - please document in the comment field,Shortness of breath High 05/28/2024 SOB when exposed to smoke, contact dermatitis with skin contact Medications Prenat MV-Min w/Ce-[id number] ( COMPLETE PO) 12/26/19 19 Active thiamine [...] a day. 30 tablet 10/21/19 25 Active baclofen (Lioresal) 10 MG tablet Take 1 tablet by mouth 3 times a day. 90 tablet 1 10/24/19 25 Active cephalexin (Keflex) 500 MG capsule 10/22/19 25 Active famotidine (Pepcid) 20 MG tablet Take [...] each day. 025 Discontinued(E ntered in Error) valACYclovir (Valtrex) 1 g tabletIndications :Esophagitis Take 1 tablet by mouth 2 times a day for 10 days. 20 tablet 10/22/19 25 sucralfate (Carafate) 1 GM/10ML suspension Take 10 mL by mouth 4 times a day for 10 days. 400 mL 10/24/19 25 025 Active Problems Problem Noted Date Diagnosed Date Electrolyte abnormality 10/17/2024 Hypokalemia 09/25/2024 Estimated Date of Delivery Comme nts Yes 12/01/2024 Date entered eliel or to episode creation Encounters Date Type Department Care Team Description 10/31/2024 Hospital Encounter [facility] [address] [place] [address] 10/30/2024 Travel 10/28/2024 Telephone Medical [facility] Building Obstetrics and Gynecology [address], [address] [place] [address] Tracy Segovia, RN Rescheduling IOL 10/24/2024 9:45 AM EDT Routine Medical Office Building Obstetrics and Gynecology [address], [address] [place] [address] Laury Cruz MD Supervision of high risk , antepartum (Primary Dx); 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), sequela; Renal tubular acidosis; Hypokalemia; Cardiac arrhythmia, unspecified cardiac arrhythmia type; Cholestasis during in third trimester 10/24/2024 8:00 AM EDT Office Visit [facility] [address], [address] [place] [address] Dilip Vasquez MD Palpitations (Primary Dx) 10/24/2024 Orders Only Medical Office Building Obstetrics and Gynecology [address], [address] [place] [address] Kaitlyn Richter MD 10/24/2024 Travel 10/23/2024 Telephone [facility] Obstetrics & Gynecology [address] [place] [address] Ana Deal MD 10/23/2024 Orders Only [facility] Obstetrics & Gynecology [address] [place] [address] Ana Deal MD 10/23/2024 Travel 10/21/2024 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 [address] [place] [address] Ana Deal MD 10/19/2024 1:03 AM EDT Anesthesia Event [facility] Delivery [address] [place] [address] Everett Farrar MD 10/19/2024 Travel 10/18/2024 Travel 10/17/2024 3:47 PM EDT - 10/20/2024 10:16 AM EDT Hospital Encounter [facility] Delivery [address] [place] [address] Hilton Montelongo MD Discharge Disposition: Home or Self Care 10/17/2024 10:30 AM EDT - 10/17/2024 3:46 PM EDT Hospital Encounter Medical [facility] Obstetrics and Gynecology [address], [address] [place] [address] NST (non-stress test) nonreactive Discharge Disposition: Home or Self Care 10/17/2024 9:30 AM EDT NST Medical Office Building Obstetrics and Gynecology [address], [address] [place] [address] growth restriction antepartum (Primary Dx) 10/17/2024 9:15 AM EDT Routine Medical Office Building Obstetrics and Gynecology [address], [address] [place] [address] Dilip Gipson MD NST (non-stress test) nonreactive (Primary Dx); Supervision of high risk , antepartum 10/17/2024 Telephone Medical [facility] Obstetrics [facility] Gynecology [address], [address] [place] [address] Tracy Segovia, RN 10/17/2024 Telephone Medical Office [facility] Obstetrics and Gynecology [address], [address] [place] [address] Tracy Segovia, RN [facility] Care coordiantion 10/17/2024 Travel 10/16/2024 Results Follow-Up [facility] [address] [facility] [place] [address] Dilip Vasquez MD 09/26/2024 9:06 AM EDT - 09/26/2024 11:59 PM EDT Hospital Encounter Medical Office Building Cardiac Diagnostic Testing Medical Office Building Echo Lab [address], [address] [place] [address] Palpitations; Syncope and collapse Discharge Disposition: Home or Self Care 09/26/2024 8:00 AM EDT Office Visit [facility] [address], [address] [place] [address] Dilip Vasquez MD Syncope and collapse (Primary Dx); Atrial fibrillation, unspecified type (CMS/HCC); Palpitations 09/26/2024 Travel 09/25/2024 2:20 PM EDT Office Visit [facility] [address], [address] [place] [address] Bill Patrick MD Hypokalemia (Primary Dx) 09/25/2024 Travel 09/23/2024 10:00 AM EDT Office Visit [facility] Obstetrics and Gynecology [address], [address] [place] [address] Liborio Weller MD Supervision of high risk , antepartum (Primary Dx); Cardiac arrhythmia, unspecified cardiac arrhythmia type 09/23/2024 Travel 09/17/2024 Telephone [facility] [address], [address] [place] [address] Sherley Gold CNA 09/17/2024 Telephone Medical Office Building Obstetrics and Gynecology [address], [address] [place] [address] Josefina Shay RN 09/14/2024 Telephone [facility] Obstetrics & Gynecology [address] [place] [address] Susi Wren MD from Last [...] more drinks on one occasion? Never 09/23/2024 Roseland Depression Scale Answer Date Recorded Roseland Depression Scale Total 0 09/23/2024 The thought [...] [address] [facility] [facility], [address] [place] [address] Dilip Gipson MD [address] [place] [address] 12/25/2024 1:00 PM EST Office Visit [facility] [address], [address] [place] [address] Health Maintenance Due Date Last Done Comments [facility]-/Child/Adol SDOH Screenings 1991 [facility]- SDOH Screenings 2009 [facility]-Adult SDOH Screenings 2009 [facility]-Hepatitis B Vaccines (1 of 3 - 19+ 3-dose series) 2010 [facility]-Pap Smear 2012 [facility]-Hepatitis A Vaccines (2 of 2 - Risk 2-dose series) 07/16/2018 01/15/2018 [facility]-Cervical Cancer Screening 2021 [facility]-HPV/Cotest 2021 [facility]-Varicella Vaccines (1 of 2 - 13+ 2-dose series) 06/29/2022 [id number] Vaccine (2 - 2024- season) 2024 05/04/2022 [...] Ketones, Urine Negative Negative mg/dL POCT Specific [place], Urine 1.015 POCT Blood, Urine Negative Negative POCT pH, Urine 8.5(A) 5.0 to 8.0 POCT Protein, Urine Trace(A) Negative mg/dL POCT Urobilinogen, Urine 0.2 0.2, 1 E.U./dL POCT Nitrite, Urine Negative Negative POCT Leukocyte Esterase, Urine Negative Negative Test Strip Lot Number [id number] Test Strip Lot Expiration 08/2025 Urine Urine specimen obtained by clean catch procedure / Unknown 10/24/2024 10:13 AM EDT Laury Cruz MD POINT OF CARE TEST ENTER/EDIT ORDERABLES Final Result * N-Terminal Probnp, Plasma (10/24/2024 8:38 AM EDT) Only the most recent of2 resultswithin the time period is included. N-Terminal, PROBNP, Plasma 175 0 - 449 pg/mL 10/24/2024 11:40 AM EDT [facility] Blood Venous blood specimen / Unknown Venipuncture / Unknown 10/24/2024 8:38 AM EDT 10/24/2024 8:40 AM EDT Dilip Vasquez MD LAB BLOOD ORDERABLES Final Result [facility] [address] [place] [address] * Troponin T, High Sensitivity, Cardiac Risk Assessment (10/24/2024 8:38 AM EDT) Pathologist [facility] Troponin T, High Sensitivity, 0 Hour <6 <14 ng/L 10/24/2024 11:40 AM EDT [facility] Blood Venous blood specimen / Unknown Venipuncture / Unknown 10/24/2024 8:38 AM EDT 10/24/2024 8:40 AM EDT Dilip Vasquez MD LAB BLOOD ORDERABLES Final Result Performing Organization Address City/[facility] Co de Phone Number [facility] [address] [place] [address] * (ABNORMAL) Herpes Simplex Virus by PCR (Serum) (10/19/2024 9:28 PM EDT) Pathologist [facility] Herpes Simplex Virus 1 (HSV-1) PCR Result Detected(AA) Not Detected 10/21/2024 11:30 AM EDT [facility] Comment:Previously prelim ve rified as Not Detected on 10/20/2024 at 1221 EDT. Herpes Simplex Virus 2 (HSV-2) PCR Result Not Detected Not Detected 10/21/2024 11:30 AM EDT [facility] Serum Venous blood specimen / Unknown 10/19/2024 9:28 PM EDT 10/19/2024 11:58 PM EDT Narrative [facility] - 10/21/2024 11:30 AM EDT This PCR assay was developed and its performance characteristics determined by [facility] as appropriate for clinical purposes. This assay has not been cleared or approved by the FDA, but is performed in a CLIA regulated laboratory that is qualified to perform high-complexity testing. This PCR assay was developed and its performance characteristics determined by [facility] as appropriate for clinical purposes. This assay has not been cleared or approved by the FDA, but is performed in a CLIA regulated laboratory that is qualified to perform high-complexity testing. This PCR assay was developed and its performance characteristics determined by [facility] as appropriate for clinical purposes. This assay has not been cleared or approved by the FDA, but is performed in a CLIA regulated laboratory that is qualified to perform high-complexity testing. Hilton Montelongo MD LAB MICROBIOLOGY - GENERAL OR DERABLES Final Result [facility] [address] [place] [address] * Brooke Mejias Virus (EBV) Quantitative PCR (10/19/2024 9:28 PM EDT) Brooke Mejias Virus, Blood, Quant DNA Interpretation Not Detected Not Detected 10/23/2024 12:34 PM EDT [facility] Blood Venous blood specimen / Unknown Venipuncture / Unknown 10/19/2024 9:28 PM EDT 10/19/2024 11:58 PM EDT Narrative [facility] - 10/23/2024 12:34 PM EDT [...] developed and it's performance characteristics determined by [facility] as appropriate for clinical purposes. [...] developed and it's performance characteristics determined by [facility] as appropriate for clinical purposes. This assay has not been cleared or approved by the FDA, but is performed in a CLIA regulated laboratory that is qualified to perform high-complexity testing. Hilton Montelongo MD LAB BLOOD ORDERABLES Final Re sult Performing Organization Address [facility] [place] [address] * Cytomegalovirus (CMV) Quantitative PCR (10/19/2024 9:28 PM EDT) [facility] Cytomegalovirus (CMV) Quantitative Interpretation Not Detected Not Detected 10/21/2024 12:44 PM EDT [facility] Blood Venous blood specimen / Unknown Venipuncture / Unknown 10/19/2024 9:28 PM EDT 10/19/2024 11:58 PM EDT Narrative [facility] - 10/21/2024 12:44 PM EDT [employer] M2000 CMV test is a Real Time [...] ORDERABLES Final Re sult Performing Organization Address [facility] de Phone Number [address] [address] * Phosphorus, Plasma (10/19/2024 9:28 PM EDT) Only the most recent of11 resultswithin the time period is included. [facility] Phosphorus, Plasma 2.5 2.5 - 4.5 mg/dL 10/19/2024 10:07 PM EDT [facility] Blood Venous blood specimen / Unknown Venipuncture / Unknown 10/19/2024 9:28 PM EDT 10/19/2024 9:38 PM EDT us Santos Herrmann MD LAB BLOOD ORDERABLES Final Resu lt Performing Organization Address City/[facility]/ZIP Co de Phone Number [facility] [address] [place] [address] * (ABNORMAL) Magnesium (10/19/2024 9:28 PM EDT) Only the most recent of12 resultswithin the time period is included. Magnesium, Plasma 1.7(L) 1.9 - 2.4 mg/dL 10/19/2024 10:07 PM EDT [facility] Blood Venous blood specimen / Unknown Venipuncture / Unknown 10/19/2024 9:28 PM EDT 10/19/2024 9:38 PM EDT us Santos Herrmann MD LAB BLOOD ORDERABLES Final Resu lt Performing Organization Address City/[facility] Co de Phone Number [facility] [address] [place] [address] * (ABNORMAL) Basic metabolic panel (10/19/2024 9:28 PM EDT) Only the most recent of9 resultswithin the time period is included. Glucose, Plasma 78 74 - 99 mg/dL 10/19/2024 10:07 PM EDT [facility] BUN, Plasma 4(L) 7 - 21 mg/dL 10/19/2024 10:07 PM EDT [facility] Creatinine, Plasma 0.61 0.60 - 1.10 mg/dL 10/19/2024 10:07 PM EDT [facility] BUN/Creatinine Ratio 7 10/19/2024 10:07 PM EDT [facility] Sodium, Plasma 137 136 - 145 mmol/L 10/19/2024 10:07 PM EDT [facility] Potassium, Plasma 4.3 3.6 - 4.9 mmol/L 10/19/2024 10:07 PM EDT [facility] Chloride, Plasma 108(H) 97 - 107 mmol/L 10/19/2024 10:07 PM EDT [facility] CO2, Plasma 20(L) 22 - 29 mmol/L 10/19/2024 10:07 PM EDT [facility] Anion Gap 9 6 - 16 mmol/L 10/19/2024 10:07 PM EDT [facility] Total Calcium, Plasma 7.8(L) 8.9 - 10.2 mg/dL 10/19/2024 10:07 PM EDT [facility] eGFRcr 121.2 mL/min/1.7 3m*2 10/19/2024 10:07 PM EDT [facility] Comment:Reported eGFRcr in m L/min/1.73m2 is based the CKD-EPI 2020 equation that does not use a race coefficient. Blood Venous blood specimen / Unknown Venipuncture / Unknown 10/19/2024 9:28 PM EDT 10/19/2024 9:38 PM EDT Santos Herrmann MD LAB BLOOD ORDERABLES Final Resu lt Performing Organization Address City/[facility]/ZIP Co de Phone Number [facility] [address] [place] [address] * ECG Adult (10/19/2024 6:45 PM EDT) Only the most recent of5 resultswithin the time period is included. EKG DIAGNOSIS CLASS Normal MUSE ECG Ventricular Rate 82 BPM MUSE ECG Atrial Rate 82 BPM MUSE ECG AZ Interval 138 ms MUSE ECG QRSD Interval 80 ms MUSE ECG QT Interval 360 ms MUSE ECG QTC Interval 420 ms MUSE ECG P [place] 46 degrees MUSE ECG R [place] 29 degrees MUSE ECG T Wave [place] 36 degrees MUSE ECG Diagnosis Normal sinus rhythm MUSE ECG Diagnosis Normal ECG MUSE ECG Diagnosis MUSE ECG Diagnosis Confirmed by Noel Osman ([id number]) on 10/20/2024 12:15:29 PM MUSE ECG 10/19/2024 6:45 PM EDT 10/20/2024 12:15 PM EDT us Hilton Montelongo MD ECG ORDERABLES Final Result Performing Organization Address City/[facility]/ZIP Co de Phone Number MUSE ECG * (ABNORMAL) Hepatic function panel (10/19/2024 5:12 PM EDT) Direct Bilirubin, Plasma <0.2 <=0.3 mg/dL 10/19/2024 7:32 PM EDT [facility] Alkaline Phosphatase, Plasma 68 35 - 104 U/L 10/19/2024 7:32 PM EDT [facility] Total Bilirubin, Plasma 0.3 0.2 - 1.1 mg/dL 10/19/2024 7:32 PM EDT [facility] Albumin, Plasma 2.5(L) 3.5 - 5.2 g/dL 10/19/2024 7:32 PM EDT [facility] Total Protein 5.2(L) 6.3 - 7.9 g/dL 10/19/2024 7:32 PM EDT [facility] ALT, Plasma 48(H) 10 - 35 U/L 10/19/2024 7:32 PM EDT [facility] AST, Plasma 35 10 - 35 U/L 10/19/2024 7:32 PM EDT [facility] Blood Venous blood specimen / Unknown Venipuncture / Unknown 10/19/2024 5:12 PM EDT 10/19/2024 5:30 PM EDT us Hilton Montelongo MD LAB BLOOD ORDERABLES Final Re sult [facility] [address] [place] [address] * US Abdomen Focused Region Liver, GB, [...] Urine 29.1 mg/dL 10/19/2024 3:24 PM EDT [facility] Phosphorus per day, Urine 0.8 0.4 - 1.3 g/d 10/19/2024 3:24 PM EDT [facility] Hours Of Collection 24 HRS 10/19/2024 3:24 PM EDT [facility] Urine, Volume 2,750 mL 10/19/2024 3:24 PM EDT [facility] Urine Urine specimen obtained by clean catch procedure / Unknown Non-blood Collection / Unknown 10/19/2024 2:43 PM EDT 10/19/2024 2:53 PM EDT us Santos Herrmann MD LAB URINE ORDERABLES Final Resu lt [facility] [address] [place] [address] * Albumin-creatinine ratio, 24 hr urine (10/19/2024 2:43 PM EDT) Microalbumin, Urine <1.2 <1.9 mg/dL 10/19/2024 3:39 PM EDT [facility] Albumin per day 3:39 PM EDT [facility] Comment:Unable to calculate, at least one value is above or below the detection limit. Microalbumin Excretion Rate 10/19/2024 3:39 PM EDT [facility] Comment:Unable to calculate, at least one value is above or below the detection limit. Creatinine, Urine 30 mg/dL 025 3:39 PM EDT [facility] Creatinine, 24H Ur 825 500 - 1,600 mg/d 10/19/2024 3:39 PM EDT [facility] Comment:Unable to calculate, at least one value is above or below the detection limit. Albumin/Creatinin e Ratio 10/19/2024 3:39 PM EDT [facility] Comment:Unable to calculate, at least one value is above or below the detection limit. Hours Of Collection 24 HRS 10/19/2024 3:39 PM EDT [facility] Urine, Volume 2,750 mL 10/19/2024 3:39 PM EDT [facility] Urine Urine specimen obtained by clean catch procedure / Unknown Non-blood Collection / Unknown 10/19/2024 2:43 PM EDT 10/19/2024 2:52 PM EDT us Santos Herrmann MD LAB URINE ORDERABLES Final Resu lt [facility] [address] [place] [address] * Calcium, 24 Hour Urine (10/19/2024 2:43 PM EDT) Calcium, Urine 3.1 mg/dL 10/19/2024 3:24 PM EDT [facility] Calcium per day, Urine 85 mg/day 10/19/2024 3:24 PM EDT [facility] Hours Of Collection 24 HRS 10/19/2024 3:24 PM EDT [facility] Urine, Volume 2,750 mL 10/19/2024 3:24 PM EDT [facility] Urine Urine specimen obtained by clean catch procedure / Unknown Non-blood Collection / Unknown 10/19/2024 2:43 PM EDT 10/19/2024 2:53 PM EDT Narrative [facility] - 10/19/2024 3:24 PM EDT Free Ca diet 5 - 40 mg/d Low to average Ca diet 50 - 150 mg/d Average Ca diet 100 - 300 mg/d Santos Herrmann MD LAB URINE ORDERABLES Final Resu lt Performing Organization Address [facility] Co de Phone Number [facility] [address] [place] [address] * Creatinine, 24 Hour Urine (10/19/2024 2:43 PM EDT) Creatinine, Urine 30 mg/dL 10/19/2024 3:39 PM EDT [facility] Creatinine per day, Urine 825 500 - 1,600 mg/d 10/19/2024 3:39 PM EDT [facility] Hours Of Collection 24 HRS 10/19/2024 3:39 PM EDT [facility] Urine, Volume 2,750 mL 10/19/2024 3:39 PM EDT [facility] Urine Urine specimen obtained by clean catch procedure / Unknown Non-blood Collection / Unknown 10/19/2024 2:43 PM EDT 10/19/2024 2:52 PM EDT Santos Herrmann MD LAB URINE ORDERABLES Final Resu lt Performing Organization Address [facility]/ZIP Co de Phone Number [facility] [address] [place] [address] * Sodium, 24 Hour, Urine (10/19/2024 2:43 PM EDT) Sodium, Urine 45 mmol/L 10/19/2024 3:39 PM EDT [facility] Sodium per day 124 48 - 168 mmol/d 10/19/2024 3:39 PM EDT [facility] Hours Of Collection 24 HRS 10/19/2024 3:39 PM EDT [facility] Urine, Volume 2,750 mL 10/19/2024 3:39 PM EDT [facility] Urine Urine specimen obtained by clean catch procedure / Unknown Non-blood Collection / Unknown 10/19/2024 2:43 PM EDT 10/19/2024 2:52 PM EDT us Santos Herrmann MD LAB URINE ORDERABLES Final Resu lt Performing Organization Address [facility]/ZIP Co de Phone Number [facility] [address] [place] [address] * Total Protein, 24 Hour Urine (10/19/2024 2:43 PM EDT) Protein, Urine <6 mg/dL 10/19/2024 3:39 PM EDT [facility] Total Protein per day 10/19/2024 3:39 PM EDT [facility] Comment:Unable to calculate, at least one value is above or below the detection limit. Hours Of Collection 24 HRS 10/19/2024 3:39 PM EDT [facility] Urine, Volume 2,750 mL 10/19/2024 3:39 PM EDT [facility] Urine Urine specimen obtained by clean catch procedure / Unknown Non-blood Collection / Unknown 10/19/2024 2:43 PM EDT 10/19/2024 2:52 PM EDT Narrative [facility] - 10/19/2024 3:39 PM EDT Reference Range <80 mg/day if bed rest <150 mg/day if ambulatory Santos Herrmann MD LAB URINE ORDERABLES Final Resu lt Performing Organization Address [facility]/ZIP Co de Phone Number [facility] [address] [place] [address] * Potassium, Urine, 24 Hour (10/19/2024 2:43 PM EDT) Potassium, Urine 20 mmol/L 10/19/2024 3:39 PM EDT [facility] Hours Of Collection 24 HRS 10/19/2024 3:39 PM EDT [facility] Urine, Volume 2,750 mL 10/19/2024 3:39 PM EDT [facility] Potassium per day, Urine 55 18 - 58 mmol/d 10/19/2024 3:39 PM EDT [facility] Urine Urine specimen obtained by clean catch procedure / Unknown Non-blood Collection / Unknown 10/19/2024 2:43 PM EDT 10/19/2024 2:52 PM EDT Santos Herrmann MD LAB URINE ORDERABLES Final Resu lt [facility] [address] [place] [address] * (ABNORMAL) Magnesium, urine, 24 hour (10/19/2024 2:43 PM EDT) Magnesium, Random Urine 24.3 mg/dL 10/19/2024 3:24 PM EDT [facility] Magnesium per day 668.3(H) 70.0 - 120.0 mg/d 10/19/2024 3:24 PM EDT [facility] Hours Of Collection 24 HRS 10/19/2024 3:24 PM EDT [facility] Urine, Volume 2,750 mL 10/19/2024 3:24 PM EDT [facility] Urine Urine specimen obtained by clean catch procedure / Unknown Non-blood Collection / Unknown 10/19/2024 2:43 PM EDT 10/19/2024 2:53 PM EDT Santos Herrmann MD LAB URINE ORDERABLES Final Resu lt [facility] [address] [place] [address] * Chloride, 24 Hour Urine (10/19/2024 2:43 PM EDT) Chloride, Urine <20 mmol/L 3:39 PM EDT [facility] Hours Of Collection 24 HRS 10/19/2024 3:39 PM EDT [facility] Urine, Volume 2,750 mL 10/19/2024 3:39 PM EDT [facility] Chloride per day, Urine 10/19/2024 3:39 PM EDT [facility] Comment:Unable to calculate, at least one value is above or below the detection limit. Urine Urine specimen obtained by clean catch procedure / Unknown Non-blood Collection / Unknown 10/19/2024 2:43 PM EDT 10/19/2024 2:52 PM EDT Santos Herrmann MD LAB URINE ORDERABLES Final Resu lt [facility] [address] [place] [address] * (ABNORMAL) Aldosterone, urine, 24 hour (10/19/2024 2:42 PM EDT) Creatinine, Urine - per 24h 908 700 - 1600 mg/d 10/27/2024 10:59 PM EDT [facility] Creatinine, Urine - per volume 33 mg/dL 10/27/2024 10:59 PM EDT [facility] [place]) Total Volume 2750 mL 10/27/2024 10:59 PM EDT [facility] Hours Collected 24 hr 10/27/2024 10:59 PM EDT [facility] ([place] ALDOSTERONE,UR INE RESULT 310.6(H) 1.2 - 28.1 ug/d 10/27/2024 10:59 PM EDT [facility] ([place]) Urine Urine specimen obtained by clean catch procedure / Unknown Non-blood Collection / Unknown 10/19/2024 2:42 PM EDT 10/19/2024 4:27 PM EDT Narrative [facility] ([place]) - 10/27/2024 10:59 PM EDT Per 24h calculations are provided to aid interpretation for collections with a duration of 24 hours and an average daily urine volume. For specimens with notable deviations in collection time or volume, ratios of analytes to a corresponding urine creatinine concentration may assist in result interpretation. Performed By: [facility] [address] [place] [id number] Loss Prevention/Safety District Manager: Brandon Bell MD, PhD CLIA Number: [id number] Santos Herrmann MD LAB URINE ORDERABLES Final Resu lt [facility] ([place]) [address] [place] [address] * (ABNORMAL) Aldosterone (10/18/2024 10:56 PM EDT) Aldosterone 115.0(H) 4.0 - 31.0 ng/dL 10/21/2024 8:21 AM EDT [facility] Blood Venous blood specimen / Unknown Venipuncture / Unknown 10/18/2024 10:56 PM EDT 10/18/2024 11:29 PM EDT Santos Herrmann MD LAB BLOOD ORDERABLES Final Resu lt Performing Organization Address [facility]/ZIP Co de Phone Number [facility] [address] [place] [address] * (ABNORMAL) Plasma Renin Activity (LC/MS/MS) (10/18/2024 10:56 PM EDT) PRA RESULT 30.67(H) 0.25 - 5.82 ng/mL/h 10/24/2024 7:47 PM EDT [facility] ([facility] ([place]) Comment: This test was developed and its analytical performance characteristics have been determined by [employer]. It has not been cleared or approved by the FDA. This assay has been validated pursuant to the CLIA regulations and is used for clinical purposes. Blood Venous blood specimen / Unknown Venipuncture / Unknown 10/18/2024 10:56 PM EDT 10/18/2024 11:08 PM EDT Narrative [facility] ([facility] ([facility]) - 10/24/2024 7:47 PM EDT Performing Organization Information: Site ID: [id number] Name: [facility] Address: [address] [place] [id number] Director: Malik Islas MD, PhD Santos Herrmann MD LAB BLOOD ORDERABLES Final Resu lt Performing Organization Address City/[facility]/ZIP Co de Phone Number [facility] ([facility]) [employer] [address] [place] [address] [place] [address] * Group B Streptococcus by PCR (10/18/2024 1:47 PM EDT) Group B Streptococcus PCR Result Not Detected Not Detected 10/20/2024 7:26 AM EDT [facility] Swab Rectovaginal / Unknown Non-blood Collection / Unknown 10/18/2024 1:47 PM EDT 10/18/2024 1:59 PM EDT Narrative [facility] - 10/20/2024 7:26 AM [...] MICROBIOLOGY - GENERAL OR DERABLES Final Result [facility] [address] [place] [address] * ECHO, ADULT TRANSTHORACIC COMPLETE (10/18/2024 11:40 AM EDT) BSA 1.71 m2 [facility] Height 162.6 [facility] Weight 65.8 [facility] LVIDd 34 mm [facility] LVIDs 25 mm [facility] IVSd 8 mm [facility] LVPWd 5 mm [facility] LV MASS(C)D 54 g [facility]LEY ISCV [facility] CV ECHO LV MASS INDEX 31 g/m2 [...] Root Diam 31 mm [facility] PA AZ(ACCEL) 28.2 mmHg [facility]SC[facility] LVLs ap2 6.7 [...] is no recent study available for direct [id number] comparison. Patient is 33 wks 5 days [...] is no recent study available for direct [id number] comparison. us Hilton Montelongo MD CV ECHO PROCEDURES Final Resu lt * POCT glucose meter (10/18/2024 9:42 AM EDT) POCT Glucose 78 74 - 99 mg/dL 10/18/2024 9:52 AM EDT [facility] Comment:Accuracy of a glucos e result [...] for testing. Comment 10/18/2024 9:52 AM EDT [facility] Blanket Inspector ID Ghazal Tex Melissa 025 9:52 AM EDT [facility] Device ID [id number] 10/18/2024 9:52 AM EDT [facility] Specimen Type POC Capillary 10/18/2024 9:52 AM EDT [facility] Blood Capillary blood specimen / Unknown 10/18/2024 9:42 AM EDT 10/18/2024 9:52 AM EDT us Hilton Montelongo MD LAB POINT OF CARE TE ST DOCKED DEVICE UNSOLICITED RESULTS Final Result Performing Organization Address City/[facility]/ZIP Co de Phone Number [facility] [address] [place] [address] * Light Green Top (10/18/2024 9:14 AM EDT) Extra Hold for add-ons 10/18/2024 12:01 PM EDT [facility] Comment:Auto resulted. Blood Venous blood specimen / Unknown 10/18/2024 9:14 AM EDT 10/18/2024 9:27 AM EDT Result [facility] us Hilton Montelongo MD LAB BLOOD ORDERABLES Final Re sult Performing Organization Address [facility] [place] [address] * OB US Biophysical Profile wo Non Stress Testing (10/18/2024 8:50 AM EDT) Anatomical Region Laterality Modality Body Ultrasound 10/18/2024 8:28 AM EDT Impressions 10/18/2024 9:40 AM EDT The OB Ultrasound you requested has been resulted. Please navigate to the Imaging tab in Jud[facility] for review. This message has been generated by the interface. Narrative Procedure Note Dilip Gipson MD - 10/18/2024 IMPRESSION: The OB Ultrasound you requested has been resulted. Please navigate to theImaging tab in Judic[facility] for review. This message has been generated by theinterface. us Hilton Montelongo MD IMG OB US PROCEDURES Final Re sult * Protein, Random, Urine with Creatinine (10/18/2024 4:03 AM EDT) Only the most recent of2 resultswithin the time period is included. Protein, Urine 10 mg/dL 10/18/2024 4:44 AM EDT [facility] Creatinine, Urine 62 mg/dL 10/18/2024 4:44 AM EDT [facility] Protein/Creatin ine Ratio 0.2 mg/mg Creat 10/18/2024 4:44 AM EDT [facility] Urine Urine specimen obtained by clean catch procedure / Unknown Non-blood Collection / Unknown 10/18/2024 4:03 AM EDT 10/18/2024 4:11 AM EDT us Hilton Montelongo MD LAB URINE ORDERABLES Final Re sult Performing Organization Address [facility]/ZIP Co de Phone Number [facility] [address] [place] [address] * (ABNORMAL) Ionized calcium, whole blood (10/18/2024 3:38 AM EDT) [facility] Ionized Calcium, Whole Blood 4.3(L) 4.6 - 5.1 mg/dL LAB HEMATOLOGY METHOD 10/18/2024 5:42 AM EDT [facility] Blood Venous blood specimen / Unknown Venipuncture / Unknown 10/18/2024 3:38 AM EDT 10/18/2024 3:48 AM EDT us Hilton Montelongo MD LAB BLOOD ORDERABLES Final Re sult [facility] [address] [place] [address] * (ABNORMAL) Blood gas panel, venous (10/18/2024 3:38 AM EDT) Only the most recent of2 resultswithin the time period is included. pH, Venous 7.47(H) 7.32 - 7.43 LAB HEMATOLOGY METHOD 10/18/2024 3:50 AM EDT [facility] pCO2, Venous 44 37 - 52 mmHg LAB HEMATOLOGY METHOD 10/18/2024 3:50 AM EDT [facility] pO2, Venous 115(H) 25 - 40 mmHg LAB HEMATOLOGY METHOD 10/18/2024 3:50 AM EDT [facility] SO2, Measured, Venous 100(H) 65 - 80 % LAB HEMATOLOGY METHOD 10/18/2024 3:50 AM EDT [facility] Base Excess, Venous 7.1(H) -2.0 - 3.0 mmol/L LAB HEMATOLOGY METHOD 10/18/2024 3:50 AM EDT [facility] Bicarbonate, Calculated, Venous 32(H) 22 - 26 mmol/L LAB HEMATOLOGY METHOD 10/18/2024 3:50 AM EDT [facility] Hematocrit, Whole Blood 27.5(L) 34.0 - 45.0 % LAB HEMATOLOGY METHOD 10/18/2024 3:50 AM EDT [facility] Sodium, Whole Blood 133(L) 136 - 145 mmol/L LAB HEMATOLOGY METHOD 10/18/2024 3:50 AM EDT [facility] Potassium, Whole Blood 2.8(L) 3.6 - 4.9 mmol/L LAB HEMATOLOGY METHOD 10/18/2024 3:50 AM EDT [facility] Chloride, Whole Blood 91(L) 97 - 107 mmol/L LAB HEMATOLOGY METHOD 10/18/2024 3:50 AM EDT [facility] Glucose, Whole Blood 72(L) 74 - 99 mg/dL LAB HEMATOLOGY METHOD 10/18/2024 3:50 AM EDT [facility] Lactate, Venous, Whole Blood 0.7 0.5 - 2.2 mmol/L LAB HEMATOLOGY METHOD 10/18/2024 3:50 AM EDT [facility] Ionized Calcium, Whole Blood 4.3(L) 4.6 - 5.1 mg/dL LAB HEMATOLOGY METHOD 10/18/2024 3:50 AM EDT [facility] Blood Venous blood specimen / Unknown Venipuncture / Unknown 10/18/2024 3:38 AM EDT 10/18/2024 3:48 AM EDT us Hilton Montelongo MD LAB BLOOD ORDERABLES Final Re sult [facility] [address] [place] [address] * Troponin T, High Sensitivity, 2 Hour, Plasma (10/18/2024 1:12 AM EDT) Only the most recent of2 resultswithin the time period is included. Troponin T, High Sensitivity, 2 Hour <6 <14 ng/L 10/18/2024 1:46 AM EDT [facility] Blood Venous blood specimen / Unknown Venipuncture / Unknown 10/18/2024 1:12 AM EDT 10/18/2024 1:18 AM EDT us Hilton Montelongo MD LAB BLOOD ORDERABLES Final Re sult Performing Organization Address [facility] Co de Phone Number [facility] [address] [place] [address] * Bile acids, total (10/18/2024 1:12 AM EDT) [facility] BILE ACIDS, TOTAL 5 0 - 10 umol/L 10/20/2024 12:29 AM EDT [facility] ([place] Blood Venous blood specimen / Unknown Venipuncture / Unknown 10/18/2024 1:12 AM EDT 10/18/2024 1:18 AM EDT Narrative [facility] ([facility]) - 10/20/2024 12:29 AM EDT INTERPRETIVE INFORMATION: Bile Acids, Total Reference Interval applies to fasting specimens. Performed By: [employer] [address] [place] [address] Loss Prevention/Safety District Manager: Brandon Bell MD, PhD CLIA Number: [id number] us Hilton Montelongo MD LAB BLOOD ORDERABLES Final Re sult Performing Organization Address [facility] Co de Phone Number [facility] ([place]) [address] [place] [address] * Group A Streptococcus by PCR (10/17/2024 11:25 PM EDT) [facility] Group A Streptococcus PCR Result Not Detected Not Detected 10/18/2024 12:38 AM EDT [facility] Swab Structure of peritonsillar tissue / Unknown Non-blood Collection / Unknown 10/17/2024 11:25 PM EDT 10/17/2024 11:49 PM EDT Hilton Montelongo MD LAB MICROBIOLOGY - GENERAL OR DERABLES Final Result Performing Organization Address City/[facility]/ZIP Co de Phone Number [facility] [address] [place] [address] * Troponin T, High Sensitivity, 0 Hour Plasma, Reflex to 2 Hour (10/17/2024 10:41 PM EDT) Only the most recent of2 resultswithin the time period is included. Troponin T, High Sensitivity, 0 Hour <6 <14 ng/L 10/17/2024 11:16 PM EDT [facility] Blood Venous blood specimen / Unknown Venipuncture / Unknown 10/17/2024 10:41 PM EDT 10/17/2024 10:45 PM EDT us Hilton Montelongo MD LAB BLOOD ORDERABLES Final Re sult Performing Organization Address [facility] Co de Phone Number [facility] [address] [place] [address] * (ABNORMAL) CBC (10/17/2024 10:41 PM EDT) WBC Count 10.63(H) 3.70 - 10.30 10*3/uL LAB HEMATOLOGY METHOD 10/17/2024 10:53 PM EDT [facility] RBC Count 3.27(L) 3.90 - 5.20 10*6/uL LAB HEMATOLOGY METHOD 10/17/2024 10:53 PM EDT [facility] HGB 9.7(L) 11.2 - 15.7 g/dL LAB HEMATOLOGY METHOD 10/17/2024 10:53 PM EDT [facility] HCT 28.7(L) 34.0 - 45.0 % LAB HEMATOLOGY METHOD 10/17/2024 10:53 PM EDT [facility] Platelet Count 185 155 - 369 10*3/uL LAB HEMATOLOGY METHOD 10/17/2024 10:53 PM EDT [facility] MCV 88 79 - 98 fL LAB HEMATOLOGY METHOD 10/17/2024 10:53 PM EDT [facility] MCH 29.7 26.0 - 32.0 pg LAB HEMATOLOGY METHOD 10/17/2024 10:53 PM EDT [facility] MCHC 33.8 30.7 - 35.5 g/dL LAB HEMATOLOGY METHOD 10/17/2024 10:53 PM EDT [facility] RDW 15.8(H) 11.5 - 14.5 % LAB HEMATOLOGY METHOD 10/17/2024 10:53 PM EDT [facility] MPV 12.3 8.8 - 12.5 fL LAB HEMATOLOGY METHOD 10/17/2024 10:53 PM EDT [facility] nRBC 0.0 <=0.0 per 100 WBCs LAB HEMATOLOGY METHOD 10/17/2024 10:53 PM EDT [facility] Blood Venous blood specimen / Unknown Venipuncture / Unknown 10/17/2024 10:41 PM EDT 10/17/2024 10:45 PM EDT us Hilton Montelongo MD LAB BLOOD ORDERABLES Final Re sult [facility] [address] [place] [address] * (ABNORMAL) Comprehensive metabolic panel (10/17/2024 10:41 PM EDT) Only the most recent of2 resultswithin the time period is included. Glucose, Plasma 77 74 - 99 mg/dL 10/17/2024 11:16 PM EDT [facility] BUN, Plasma 9 7 - 21 mg/dL 10/17/2024 11:16 PM EDT [facility] Creatinine, Plasma 0.70 0.60 - 1.10 mg/dL 10/17/2024 11:16 PM EDT [facility] BUN/Creatinine Ratio 13 10/17/2024 11:16 PM EDT [facility] Sodium, Plasma 132(L) 136 - 145 mmol/L 10/17/2024 11:16 PM EDT [facility] Potassium, Plasma 2.5(LL) 3.6 - 4.9 mmol/L 10/17/2024 11:16 PM EDT [facility] Chloride, Plasma 88(L) 97 - 107 mmol/L 10/17/2024 11:16 PM EDT [facility] CO2, Plasma 27 22 - 29 mmol/L 10/17/2024 11:16 PM EDT [facility] Anion Gap 17(H) 6 - 16 mmol/L 10/17/2024 11:16 PM EDT [facility] Total Calcium, Plasma 8.4(L) 8.9 - 10.2 mg/dL 10/17/2024 11:16 PM EDT [facility] Total Protein 5.8(L) 6.3 - 7.9 g/dL 10/17/2024 11:16 PM EDT [facility] Albumin, Plasma 3.0(L) 3.5 - 5.2 g/dL 10/17/2024 11:16 PM EDT [facility] AST, Plasma 69(H) 10 - 35 U/L 10/17/2024 11:16 PM EDT [facility] ALT, Plasma 76(H) 10 - 35 U/L 10/17/2024 11:16 PM EDT [facility] Alkaline Phosphatase, Plasma 76 35 - 104 U/L 10/17/2024 11:16 PM EDT [facility] Total Bilirubin, Plasma 0.7 0.2 - 1.1 mg/dL 10/17/2024 11:16 PM EDT [facility] eGFRcr 117.3 mL/min/1.7 3m*2 10/17/2024 11:16 PM EDT [facility] Comment:Reported eGFRcr in m L/min/1.73m2 is based the CKD-EPI 2020 equation that does not use a race coefficient. Blood Venous blood specimen / Unknown Venipuncture / Unknown 10/17/2024 10:41 PM EDT 10/17/2024 10:45 PM EDT us Hilton Montelongo MD LAB BLOOD ORDERABLES Final Re sult [facility] [address] [place] [address] * SARS CoV-2/COVID-19 by PCR (10/17/2024 8:50 PM EDT) [facility] SARS CoV-2/COVID-1 9 RNA PCR Result Not Detected Not Detected 10/19/2024 1:56 AM EDT [facility] Swab Nasopharyngeal structure / Unknown Non-blood Collection / Unknown 10/17/2024 8:50 PM EDT 10/17/2024 9:28 PM EDT Narrative [facility] - 10/19/2024 1:56 AM [...] OR DERABLES Final Result Performing Organization Address [facility] Co de Phone Number [facility] [address] [place] [address] * Nasopharyngeal Respiratory Panel (10/17/2024 8:50 PM EDT) [facility] Nasopharyngeal Respiratory PCR Interpretation Not Detected for all analytes Not Detected for all analytes 10/17/2024 11:23 PM EDT [facility] Swab Nasopharyngeal structure / Unknown Non-blood Collection / Unknown 10/17/2024 8:50 PM EDT 10/17/2024 9:28 PM EDT Narrative [facility] - 10/17/2024 11:23 PM [...] Respiratory PCR Panel is performed using the [employer] instrument. This test is FDA approved for use with Nasopharyngeal swabs only. This test is used for clinical purposes. It should not be regarded as investigational or for research. The [facility] Microbiology [facility] is certified under the Clinical Laboratory Improvement Amendments of 1988 (CLIA-88) as qualified to perform high complexity clinical laboratory testing. Hilton Montelongo MD LAB MICROBIOLOGY - GENERAL OR DERABLES Final Result Performing Organization Address [facility] [place] [address] * Treponema Pallidum (Syphilis) Antibodies with Reflex to RPR and RPR Titer (Those with NO known Syphilis) (10/17/2024 7:31 PM EDT) [facility] Syphilis Antibody (IgG+IgM) Nonreactive Nonreactive 10/17/2024 10:00 PM EDT [facility] Comment:Nonreactive. No sero logic evidence of syphilis. No follow-up necessary unless clinically indicated (e.g., early syphilis). Blood Venous blood specimen / Unknown Venipuncture / Unknown 10/17/2024 7:31 PM EDT 10/17/2024 7:44 PM EDT Hilton Montelongo MD LAB BLOOD ORDERABLES Final Re sult Performing Organization Address [facility] Co de Phone Number [facility] [address] [place] [address] * Type and Screen (10/17/2024 7:31 PM EDT) Pathologist [facility] ABO/Rh O Positive 10/17/2024 7:10 PM EDT BLOOD [facility]ANK Antibody Screen Negative 10/17/2024 7:10 PM EDT [facility] Specimen Expiration 10/20/2024 23:59 10/17/2024 7:10 PM EDT [facility] Blood Venous blood specimen / Unknown Venipuncture / Unknown 10/17/2024 7:31 PM EDT 10/17/2024 7:44 PM EDT us Hilton Montelongo MD LAB BLOOD BANK TEST ORDERABLE S Final Result BLOOD BANK [address] [place] [address], * XR Chest 1 View (10/17/2024 4:38 [...] DIMER, QUANTITATIVE (10/17/2024 4:05 PM EDT) Pathologist [facility] D Dimer, Quantitative 2.33(H) <0.50 ug/mL FEU LAB COAGULATION METHOD 10/17/2024 4:47 PM EDT [facility] Blood Venous blood specimen / Unknown Venipuncture / Unknown 10/17/2024 4:05 PM EDT 10/17/2024 4:19 PM EDT Narrative [facility] - 10/17/2024 4:47 PM [...] APRN, CNM LAB BLOOD ORDERABLES Final Result [facility] [address] [place] [address] * (ABNORMAL) CBC and Differential (10/17/2024 4:05 PM EDT) WBC Count 9.54 3.70 - 10.30 10*3/uL LAB HEMATOLOGY METHOD 10/17/2024 4:41 PM EDT [facility] RBC Count 3.40(L) 3.90 - 5.20 10*6/uL LAB HEMATOLOGY METHOD 10/17/2024 4:41 PM EDT [facility] HGB 10.2(L) 11.2 - 15.7 g/dL LAB HEMATOLOGY METHOD 10/17/2024 4:41 PM EDT [facility] HCT 29.7(L) 34.0 - 45.0 % LAB HEMATOLOGY METHOD 10/17/2024 4:41 PM EDT [facility] Platelet Count 177 155 - 369 10*3/uL LAB HEMATOLOGY METHOD 10/17/2024 4:41 PM EDT [facility] MCV 87 79 - 98 fL LAB HEMATOLOGY METHOD 10/17/2024 4:41 PM EDT [facility] MCH 30.0 26.0 - 32.0 pg LAB HEMATOLOGY METHOD 10/17/2024 4:41 PM EDT [facility] MCHC 34.3 30.7 - 35.5 g/dL LAB HEMATOLOGY METHOD 10/17/2024 4:41 PM EDT [facility] RDW 15.9(H) 11.5 - 14.5 % LAB HEMATOLOGY METHOD 10/17/2024 4:41 PM EDT [facility] MPV 12.1 8.8 - 12.5 fL LAB HEMATOLOGY METHOD 10/17/2024 4:41 PM EDT [facility] nRBC 0.0 <=0.0 per 100 WBCs LAB HEMATOLOGY METHOD 10/17/2024 4:41 PM EDT [facility] Differential Type Automated LAB HEMATOLOGY METHOD 10/17/2024 4:41 PM EDT [facility] Neutrophils % 63 % LAB HEMATOLOGY METHOD 10/17/2024 4:41 PM EDT [facility] Lymphocytes % 24 % LAB HEMATOLOGY METHOD 10/17/2024 4:41 PM EDT [facility] Monocytes % 11 % LAB HEMATOLOGY METHOD 10/17/2024 4:41 PM EDT [facility] Eosinophils % 1 % LAB HEMATOLOGY METHOD 10/17/2024 4:41 PM EDT [facility] Basophils % 0 % LAB HEMATOLOGY METHOD 10/17/2024 4:41 PM EDT [facility] Immature Granulocytes % 1 % LAB HEMATOLOGY METHOD 10/17/2024 4:41 PM EDT [facility] Neutrophils Absolute 6.06 1.60 - 6.10 10*3/uL LAB HEMATOLOGY METHOD 10/17/2024 4:41 PM EDT [facility] Lymphocytes Absolute 2.31 1.20 - 3.90 10*3/uL LAB HEMATOLOGY METHOD 10/17/2024 4:41 PM EDT [facility] Monocytes Absolute 1.05(H) 0.30 - 0.90 10*3/uL LAB HEMATOLOGY METHOD 10/17/2024 4:41 PM EDT [facility] Eosinophils Absolute 0.06 0.00 - 0.50 10*3/uL LAB HEMATOLOGY METHOD 10/17/2024 4:41 PM EDT [facility] Basophils Absolute 0.01 0.00 - 0.10 10*3/uL LAB HEMATOLOGY METHOD 10/17/2024 4:41 PM EDT [facility] Immature Granulocytes Absolute 0.05 0.00 - 0.06 10*3/uL LAB HEMATOLOGY METHOD 10/17/2024 4:41 PM EDT [facility] Blood Venous blood specimen / Unknown Venipuncture / Unknown 10/17/2024 4:05 PM EDT 10/17/2024 4:24 PM EDT Narrative [facility] - 10/17/2024 4:41 PM EDT Therapeutic decision making should be based on absolute values, rather than percentages. us Job Devine HEAVY THREADER, CNM LAB BLOOD ORDERABLES Final Result [facility] [address] [place] [address] * (ABNORMAL) Uric acid (10/17/2024 4:05 PM EDT) Uric Acid, Plasma 10.1(H) 3.1 - 7.1 mg/dL 10/17/2024 9:51 PM EDT [facility] Blood Venous blood specimen / Unknown Venipuncture / Unknown 10/17/2024 4:05 PM EDT 10/17/2024 4:20 PM EDT us Hilton Montelongo MD LAB BLOOD ORDERABLES Final Re sult [facility] [address] [place] [address] * (ABNORMAL) Lactate dehydrogenase (10/17/2024 4:05 PM EDT) LDH, Plasma 267(H) 116 - 250 U/L 10/17/2024 9:51 PM EDT [facility] Comment:Hemolyzed, result ma y be falsely increased. Blood Venous blood specimen / Unknown Venipuncture / Unknown 10/17/2024 4:05 PM EDT 10/17/2024 4:20 PM EDT us Hilton Montelongo MD LAB BLOOD ORDERABLES Final Re sult Performing Organization Address City/[facility]/ZIP Co de Phone Number [facility] [address] [place] [address] * OB US Detail Anatomy (10/17/2024 1:34 PM EDT) Anatomical Region Laterality Modality Body Ultrasound 10/17/2024 11:2 0 AM EDT Impressions 10/17/2024 2:52 PM EDT The OB Ultrasound you requested has been resulted. Please navigate to the Imaging tab in [facility] for review. This message has been generated by the interface. Narrative Procedure Note Melonie Wheeler MD - 10/17/2024 IMPRESSION: The OB Ultrasound you requested has been resulted. Please navigate to theImaging tab in [employer] for review. This message has been generated by theinterface. Result [facility] Dilip Gipson MD IMG OB US PROCEDURES Lena l Result * Chloride, urine, random (09/26/2024 10:07 AM EDT) Chloride, Urine 25 mmol/L 2:03 PM EDT [facility] Urine Urine specimen obtained by clean catch procedure / Unknown Non-blood Collection / Unknown 09/26/2024 10:07 AM EDT 09/26/2024 10:07 AM EDT Bill Patrick MD LAB URINE ORDERABLES Final Resul t [facility] [address] [place] [address] * Sodium, urine, random (09/26/2024 10:02 AM EDT) Sodium, Urine 110 mmol/L 09/26/2024 11:55 AM EDT [facility] Urine Urine specimen obtained by clean catch procedure / Unknown Non-blood Collection / Unknown 09/26/2024 10:02 AM EDT 09/26/2024 10:02 AM EDT us Bill Patrick MD LAB URINE ORDERABLES Final Resul t Performing Organization Address City/[facility] de Phone Number [facility] [address] [place] [address] * Potassium, urine, random (09/26/2024 10:02 AM EDT) Potassium, Urine 43 mmol/L 09/26/2024 11:55 AM EDT [facility] Urine Urine specimen obtained by clean catch procedure / Unknown Non-blood Collection / Unknown 09/26/2024 10:02 AM EDT 09/26/2024 10:02 AM EDT us Bill Patrick MD LAB URINE ORDERABLES Final Resul t Performing Organization Address [facility] de Phone Number [facility] [address] [place] [address] * Osmolality, urine (09/26/2024 10:02 AM EDT) Osmolality, Urine 404 50 - 1,200 mOsm/kg 09/26/2024 1:48 PM EDT [facility] Urine Urine specimen obtained by clean catch procedure / Unknown Non-blood Collection / Unknown 09/26/2024 10:02 AM EDT 09/26/2024 10:02 AM EDT us Bill Patrick MD LAB URINE ORDERABLES Final Resul t Performing Organization Address [facility] de Phone Number [facility] [address] [place] [id number] * SSA 52 and 60 (Ro) (YARA) Antibodies, IgG (09/26/2024 9:32 AM EDT) SSA-52 (RO52) (YARA) Antibody, IgG 2 0 - 40 AU/mL 09/28/2024 5:47 PM EDT [facility] (TERRI) SSA-60 (RO60) (YARA) Antibody, IgG 0 0 - 40 AU/mL 09/28/2024 5:47 PM EDT [facility] (TERRI) Serum 09/26/2024 9:32 AM EDT 09/26/2024 9:32 AM EDT Narrative [facility] (TERRI) - 09/28/2024 5:47 [...] AU/mL or Greater .......... Positive Performed By: [employer] [address] [id number] Loss Prevention/Safety District Manager: Brandon Bell MD, PhD CLIA Number: [id number] us Bill Patrick MD LAB REF LAB BLOOD AND FLUID ORD Final Result [facility]) [address] [place] [address] * SSB (LA) (YARA) ANTIBODY, IGG (09/26/2024 9:32 AM EDT) SSB (LA) (YARA) Antibody, IgG 0 0 - 40 AU/mL 09/28/2024 5:47 PM EDT [facility] (TERRI) Serum Venous blood specimen / Unknown 09/26/2024 9:32 AM EDT 09/26/2024 9:32 AM EDT Narrative [facility]) - 09/28/2024 5:47 PM EDT INTERPRETIVE [...] (PSS) also have this antibody. Performed By: [employer] [address] [place] [address] Loss Prevention/Safety District Manager: Brandon Bell MD, PhD CLIA Number: [id number] us Bill Patrick MD LAB BLOOD ORDERABLES Final Resul t [facility]) [address] [place] [address] * Rheumatoid factor, plasma (09/26/2024 9:32 AM EDT) Rheumatoid Factor, Plasma <10 <14 IU/mL 09/26/2024 1:49 PM EDT [facility] Blood Venous blood specimen / Unknown Venipuncture / Unknown 09/26/2024 9:32 AM EDT 09/26/2024 9:32 AM EDT Bill Patrick MD LAB BLOOD ORDERABLES Final Resul t [facility] [address] [place] [address] * Antinuclear Antibody (JEFFERY), HEp-2, IgG (09/26/2024 9:32 AM EDT) JEFFERY INTERPRETIVE COMMENT See Note 09/28/2024 5:13 PM EDT [facility] (TERRI) Anti Nuc Ab Screen <1:80 <1:80 09/28/2024 5:13 PM EDT [facility] (TERRI) Blood Venous blood specimen / Unknown Venipuncture / Unknown 09/26/2024 9:32 AM EDT 09/26/2024 9:32 AM EDT Narrative [facility] (TERRI) - 09/28/2024 5:13 [...] rings, and cytoplasmic speckled patterns. Performed By: [employer] [address] [place] [address] Loss Prevention/Safety District Manager: Brandon Bell MD, PhD CLIA Number: [id number] Bill Patrick MD LAB BLOOD ORDERABLES Final Resul t [facility] [employer] [place]) [address] [place] [address] * (ABNORMAL) Osmolality (09/26/2024 9:32 AM EDT) Osmolality, Serum 273(L) 275 - 295 mOsm/Kg 09/26/2024 2:10 PM EDT [facility] Blood Venous blood specimen / Unknown Venipuncture / Unknown 09/26/2024 9:32 AM EDT 09/26/2024 9:32 AM EDT Bill Patrick MD LAB BLOOD ORDERABLES Final Resul t [facility] [address] [place] [address] * (ABNORMAL) Renal function panel (09/26/2024 9:32 AM EDT) Pathologist [facility] Glucose, Plasma 87 74 - 99 mg/dL 09/26/2024 12:24 PM EDT [facility] BUN, Plasma 5(L) 7 - 21 mg/dL 09/26/2024 12:24 PM EDT [facility] Creatinine, Plasma 0.72 0.60 - 1.10 mg/dL 09/26/2024 12:24 PM EDT [facility] BUN/Creatinine Ratio 7 09/26/2024 12:24 PM EDT [facility] Sodium, Plasma 135(L) 136 - 145 mmol/L 09/26/2024 12:24 PM EDT [facility] Potassium, Plasma 3.1(L) 3.6 - 4.9 mmol/L 09/26/2024 12:24 PM EDT [facility] Chloride, Plasma 95(L) 97 - 107 mmol/L 09/26/2024 12:24 PM EDT [facility] CO2, Plasma 26 22 - 29 mmol/L 09/26/2024 12:24 PM EDT [facility] Anion Gap 14 6 - 16 mmol/L 09/26/2024 12:24 PM EDT [facility] Total Calcium, Plasma 9.4 8.9 - 10.2 mg/dL 09/26/2024 12:24 PM EDT [facility] Phosphorus, Plasma 3.5 2.5 - 4.5 mg/dL 09/26/2024 12:24 PM EDT [facility] Albumin, Plasma 3.6 3.5 - 5.2 [...] BLOOD ORDERABLES Final Resul t [facility] [address] [place] [address] * Adult Patch Monitor - 7 Day [...] bpm on Day 3 08:47:57 pm SVE(s): [place] was 3.46 %, 13738 total SVE(s) SV Arrhythmia(s): 21 events, longest event 7 beats on Day :05:26 am, fastest event 111 bpm on Day :02:39 am PVC(s): [place] was 0.03 %, 189 total PVC(s), 1 disparate morphologies Patient recorded 6 event(s) during the monitoring period PHYSICIAN COMMENTS: Predominant rhythm is sinus rhythm. Occasional premature atrial and rare premature ventricular complexes were recorded during the monitoring period. No malignant cardiac rhythms were recorded during the monitoring period. Triggered events were not associated with clinical arrhythmias (all during sinus rhythm). Result [facility] Dilip Vasquez MD CV CARDIAC SERVICES PROCED URES Final Result * HIV 1 & 2 Antibody/Antigen Screen (01/22/2019 9:57 AM EST) HIV 1 Result NONREACTIVE Screening for HIV 1 and 2 antibodies is NONREACTIVE. No confirmatory testing is required. SUNQUEST 01/22/2019 9:57 AM EST 01/22/2019 12:12 PM EST Pradip Damico APRN, CNM LAB BLOOD ORDERABLES Fin al Result Performing Organization Address [facility] de Phone Number SUNQUEST * Hepatitis C Antibody (01/22/2019 9:57 AM EST) Hepatitis C Antibody NEGATIVE Reference Range: Negative SUNQUEST 01/22/2019 9:57 AM EST 01/22/2019 12:12 PM EST Pradip Damico APRN, CNM LAB BLOOD ORDERABLES Fin al Result Performing Organization Address [facility] Co de Phone Number SUNQUEST from Last 3 Months or Most Recently Relevant to Health Maintenance Insurance [employer] [facility] MEDICAID Advance Directives * Full Code (Latest Code Status on File) Date Activated Date Inactivated Comments 10/17/2024 7:12 PM 10/20/2024 12:16 PM Question Answer Comments I have reviewed the capacity from the link above and, if needed, have updated to appropriate status: Yes Care Teams Wide Load Escort Relationship Specialty Start Date End Date Norma Friedman APRN [address] [place] [address] PCP - General 09/23/24 Lizz Trinh, RN [facility] Registered Nurse Cardiology 09/26/24
--- OUTSIDE RECORDS SUMMARY | 2024-11-04 08:31 | XMS_ITS | Encounter Summary ---
Author Organization Healthcare Address [address] [place] [address] Care Team Providers Care Field Cashier Name Role Phone Norma Friedman JOLENE Primary Care Provider +1- [phone] Lizz Trinh RN Unavailable Unavailable Reason for Visit * Reason Onset Date Comments Rescheduling IOL 10/28/2024 Encounter Details Date Type Department Care Team ([facility] Contact Info) Description 10/28/2024 Telephone Medical Office Building Obstetrics and Gynecology [address] [facility], [address] [place] [address] Tracy Segovia, RN [facility] 1st FLR Rescheduling IOL [...] more drinks on one occasion? Never 09/23/2024 Joseph Depression Scale Answer Date Recorded Joseph Depression Scale Total 0 09/23/2024 The thought [...] Upcoming Encounters Date Type Department Care Team ([facility] st Contact Info) Description 11/21/2024 11:15 AM EDT Visit Medical Office Building Obstetrics and Gynecology [address] [facility], [address] [place] [address] Nneka Gipson MD [address] [place] [address] 12/25/2024 1:00 PM EST Office Visit Professional [facility] [address] [facility], [address] [place] [address] documented as of this encounter [...] as of this encounter Care Teams Field Cashier Relationship Specialty Start Date End Date Norma Friedman APRN [address] [facility] [place] [address] PCP - General 09/23/24 Lizz Trinh, RN [facility] Registered Nurse Cardiology 09/26/24 documented as of this encounter
--- OUTSIDE RECORDS SUMMARY | 2024-11-04 08:31 | XMS_ITS | Encounter Summary ---
Author Organization Healthcare Address [address] [place] [address] Care Team Providers Care Housekeeper And Laundry Assistant Name Role Phone Norma Friedman JOLENE Primary Care Provider +1- [phone] Lizz Trinh RN Unavailable Unavailable Encounter Details [...] more drinks on one occasion? Never 09/23/2024 Jenkins Depression Scale Answer Date Recorded Jenkins Depression Scale Total 0 09/23/2024 The thought [...] Health Questionnaire-9 Score 0 10/07 7:52 AM EDNadine Cintron * How difficult have these problems made it for you to do your work, take care of things at home, or get along with other people? Answer Date of Assessment Author Not difficult at all 10/24/2024 7:52 AM EDNadine Mcneil documented as of this encounter Plan of Treatment Upcoming Encounters Date Type Department Care Team ([facility] st Contact Info) Description 11/21/2024 11:15 AM EDT Visit Medical Office Building Obstetrics and Gynecology [address] [facility], [address] [place] [address] Nneka Gipson MD [address] [place] [address] 12/25/2024 1:00 PM EST Office Visit Tagged [facility] [address] [facility], [address] [place] [address] documented as of this encounter [...] documented as of this encounter Care Teams Housekeeper And Laundry Assistant Relationship Specialty Start Date End Date Norma Friedman APRN [address] [place] [address] PCP - General 09/23/24 Lizz Trinh, RN [facility] Registered Nurse Cardiology 09/26/24 documented as of this encounter
--- OUTSIDE RECORDS SUMMARY | 2024-11-04 08:31 | XMS_ITS | Encounter Summary ---
Author Organization Healthcare Address [address] [place] [address] Care Team Providers Care Personal Computer Network Analyst Name Role Phone Valentino Friedmanseven Zbigniew JOLENE Primary Care Provider +1- [phone] Lizz Trinh RN Unavailable Unavailable Encounter Details Date Type Department Care Team (Late st Contact Info) Description 10/23/[address] [facility] Obstetrics & Gynecology [address] [place] [address] Veronica Deal MD [address] [id number] Social History Tobacco Use Types Packs/Day Years [...] more drinks on one occasion? Never 09/23/2024 Porter Depression Scale Answer Date Recorded Porter Depression Scale Total 0 09/23/2024 The thought [...] help with pain. She will follow-up in [facility] clinic tomorrow morning. Discussed with [facility] on kera, Dr. Gipson. documented in this encounter Plan of Treatment Upcoming Encounters Date Type Department Care Team ([facility] Contact Info) Description 11/21/2024 11:15 AM EDT Visit Medical Office Building Obstetrics and Gynecology [address] [facility], [address] [place] [address] Nneka Gipson MD [address] [place] [id number] 12/25/2024 1:00 PM EST Office Visit [facility] [place] [facility] [address] [facility], [address] [place] [address] documented as of this encounter Visit Diagnoses Not on filedocumented in this encounter Additional Health Concerns Assessment Noted Time A fall risk assessment has been complete d for the patient 09/26/2024 8:15 AM EDT A Body Mass Index follow-up plan has been documented for the patient 10/20/2024 9:52 AM EDT documented as of this encounter Care Teams Personal Computer Network Analyst Relationship Specialty Start Date End Date Norma Friedman APRN [address] [place], [place] [id number] PCP - General 09/23/24 Lizz Trinh, RN [facility] Registered Nurse Cardiology 09/26/24 documented as of this encounter
[2024-11-04 08:38] LABS: Alanine Aminotransferase 13 U/L (12-78); Albumin Level 3.1 g/dl (3.5-5.0); Albumin/Globulin Ratio 1.0 (1.1-1.8); Alkaline Phosphatase 98 U/L (38-126); Anion Gap 10.5 mEq/L (5-15); Aspartate Amino Transferase 33 U/L (14-36); Bilirubin,Total 0.7 mg/dl (0.2-1.3); Blood Urea Nitrogen 6 mg/dl (7-17); Calcium 8.4 mg/dl (8.4-10.2); Carbon Dioxide 34 mmol/L (22.0-30.0); Chloride 93 mmol/L (98-107); Creatinine,Serum 0.70 mg/dl (0.52-1.04); Estimated Glomerular Filt Rate 96 ml/min (>60); GFR (African American) 117 ML/MIN (>60); Globulin 3.1 g/dL (1.3-3.2); Glucose 83 mg/dl (74-100); Magnesium 1.5 mg/dl (1.6-2.3); Sodium 135 mmol/L (136-145); Total Protein,Serum 6.2 g/dl (6.3-8.2)
[2024-11-04 08:42] LABS: Potassium 2.5 mmoL/L (3.5-5.1)
[2024-11-04 08:58] VITALS: BP 108/62; PULSE 74; RESP 18; TEMP 36.8; O2SAT 100
[2024-11-04] MEDS: MAGNESIUM SULFATE IN WATER 2 GM/50 ML PIGGYBACK IV ×2 (08:58→10:05)
[2024-11-04] MEDS: 0.9 % SODIUM CHLORIDE 100 ML IV (09:42)
[2024-11-04 10:05] VITALS: BP 103/69; PULSE 74; RESP 18; O2SAT 100
[2024-11-04 11:08] VITALS: BP 95/51; PULSE 71; RESP 18; O2SAT 100
[2024-11-04 12:11] VITALS: BP 95/53; PULSE 71; RESP 18; O2SAT 100
[2024-11-04 13:28] VITALS: BP 110/73; PULSE 71; RESP 18; O2SAT 100
== END 2024-11-04 23:59 | disposition home or self-care (01) ==
PROVIDERS: PCP Nurse Practitioner Family; Visit Provider Nurse Practitioner Obstetrics & Gynecology
DX: E87.6 Hypokalemia (principal)
CPT/HCPCS: 80053; 83735; 96365; 96366; 96367; 96523; J3475; J3480